=== PATIENT | male | born 1970 | race African-American/Black ===

== ENCOUNTER → 2017-01-25 | Outpatient (CLI) | payer OTHER ==
[2016-01-29 01:08] VITALS: BP 155/82
[~2017-01-25] MED LIST: DICY20TA30 PO; HYDR-971 PO; ONDA4TAB10 PO
--- NOTE | 2017-01-25 15:24 | RAD ---
Indication nasal congestion. Drainage. Stuffy nose. Noncontrast images through the maxillofacial structures were obtained and reformatted in the coronal and sagittal planes. No similar imaging is available. The visualized brain appears unremarkable. Visualized bony structures appear normal. Right mastoid air cells are normally aerated. There is some minimal opacification (fluid) seen in left mastoid air cells. The frontal, ethmoid and maxillary sinuses appear normal. The sphenoid sinus is also normal. No significant soft tissue finding is seen. IMPRESSION: Normal paranasal sinuses. Small amount of fluid in left mastoid air cells. PQRS Compliance Statement: One or more of the following individualized dose reduction techniques were utilized for this examination: 1. Automated exposure control 2. Adjustment of the mA and/or kV according to patient size 3. Use of iterative reconstruction technique
== END | disposition home or self-care (01) ==
LOC: CT 10:12
PROVIDERS: ATTEND Otolaryngology
DX: J32.9 Chronic sinusitis, unspecified (principal); R09.81 Nasal congestion
CPT/HCPCS: 70486

== ENCOUNTER 2019-06-11 04:13 | Inpatient (IN) | payer OTHER ==
[~2019-06-11] VITALS: Ht 175.3 cm; Wt 102.5 kg
[~2019-06-11 04:13] MED LIST changes: +HYDR-3164 PO; -HYDR-971 PO
[2019-06-11] MEDS ORDERED: ONDANSETRON PF 4 MG/2 ML VIAL. IV ONE (04:30)
[2019-06-11] MEDS ORDERED: IV NORMAL SALINE 1000ML BAG 1,000 ML IV SCH (04:30)
[2019-06-11] MEDS: MORPHINE SULFATE 4 MG/ML VIAL. IV/SQ PRN ×2 (04:34→04:58)
--- NOTE | 2019-06-11 04:34 | PHYS DOC ---
Past Medical History Past Medical History: GERD Past Surgical History: No Surgical History Smoking Status: Never Smoker Alcohol Use: Occasionally Drug Use: None Adult General Chief Complaint Chief Complaint: ABDOMINAL PAIN HPI HPI 49-year-old male with underlying history of reflux presents to the emergency Department complaints of severe epigastric abdominal pain that radiates to his back. Patient states he woke approximately 1 hour ago from sleep. He is unable to clarify the pain sharp versus dull he states is just intense, 10 out of 10 pain. Patient has no history of aneurysm or vascular disorders. His significant other states he ate [employer] last night with family personally check flaring as well as a second house. He does drink alcohol. Denies any past medical history aside from GERD, no surgical history according the patient's significant other at the bedside. She did have evidence of emesis appreciated. This did not improve his abdominal pain. Blood pressure currently 133/61, heart rate 94-96 after vomiting. Recommend pain medications anti-emetics and plan for CTA chest abd pelvis. She is thrashing around that with inability to get comfortable, morphine 4 mg, Zofran 4 mg provided. Review of Systems Review of Systems Constitutional: Denies fever or chills [] Respiratory: Denies cough or shortness of breath [] Cardiovascular: No additional information not addressed in HPI [] GI: severe abdominal pain, nausea, vomiting, no diarrhea [] : Denies dysuria or hematuria [] Musculoskeletal: pain radiates from the abdomen to the back Integument: Denies rash or skin lesions [] Neurologic: Denies headache, focal weakness or sensory changes [] All other systems were reviewed and found to be within normal limits, except as documented in this note. Current Medications Current Medications Current Medications Medications (Trade) Dose Ordered Sig/Jesse Start Time Stop Time Status Last Admin Dose Admin Fentanyl Citrate (Fentanyl 2ml Vial) 50 mcg 1X ONCE 06/11/19 05:00 06/11/19 05:01 DC 06/11/19 04:45 50 MCG Info (CONTRAST GIVEN -- Rx MONITORING) 1 each PRN DAILY PRN 06/11/19 04:45 06/13/19 04:44 Iohexol (Omnipaque 350 Mg/ml) 100 ml 1X ONCE 06/11/19 04:45 06/11/19 04:46 DC 06/11/19 05:01 100 ML Morphine Sulfate (Morphine Sulfate) 4 mg PRN Q15MIN PRN 06/11/19 04:30 06/11/19 16:47 DC 06/11/19 04:58 4 MG Ondansetron HCl (Zofran) 4 mg 1X ONCE 06/11/19 04:30 06/11/19 04:33 DC 06/11/19 04:33 4 MG Sodium Chloride 1,000 ml @ 1,000 mls/hr Q1H 06/11/19 04:30 06/11/19 05:29 DC 06/11/19 04:34 1,000 MLS/HR Allergies Allergies Allergies Coded Allergies Type Severity Reaction Last Updated Verified No Known Drug Allergies 01/28/16 No Physical Exam Physical Exam Constitutional: Well developed, well nourished, severe distress 2/2 abdominal pain radiating to back, diaphoretic/clammy HENT: Normocephalic, atraumatic, bilateral external ears normal, oropharynx moist, no oral exudates, nose normal. [] Eyes: PERRLA, EOMI, conjunctiva normal, no discharge. [] Cardiovascular:Heart rate regular rhythm, no murmur [] Lungs & Thorax: Bilateral breath sounds clear to auscultation [] Abdomen: Bowel sounds decreased, tender to palpation on exam - generalized, no pulsatile masses appreciated Skin: Warm, dry, no erythema, no rash. [] Back: No tenderness, no CVA tenderness. [] Extremities: No tenderness, no edema. [] Neurologic: Alert and oriented X 3, no focal deficits noted. [] Psychologic: Affect normal, judgement normal, mood normal. [] Current Patient Data Vital Signs Vital Signs Date Time Temp Pulse Resp B/P (MAP) Pulse Ox O2 Delivery O2 Flow Rate FiO2 06/11/19 05:00 82 179/99 (125) 98 Room Air 06/11/19 04:58 28 06/11/19 04:20 97.5 97.5 Lab Values Laboratory Tests Test 06/11/19 05:05 White Blood Count 18.6 x10^3/uL (4.0-11.0) H Red Blood Count 4.71 x10^6/uL (4.30-5.70) Hemoglobin 13.5 g/dL (13.0-17.5) Hematocrit 41.0 % (39.0-53.0) Mean Corpuscular Volume 87 fL (79-100) Mean Corpuscular Hemoglobin 29 pg (25-35) Mean Corpuscular Hemoglobin Concent 33 g/dL (31-37) Red Cell Distribution Width 13.6 % (11.5-14.5) Platelet Count 188 x10^3/uL (140-400) Neutrophils (%) (Auto) 77 % (31-73) H Lymphocytes (%) (Auto) 16 % (24-48) L Monocytes (%) (Auto) 6 % (0-9) Eosinophils (%) (Auto) 0 % (0-3) Basophils (%) (Auto) 0 % (0-3) Neutrophils # (Auto) 14.3 x10^3/uL (1.8-7.7) H Lymphocytes # (Auto) 3.0 x10^3/uL (1.0-4.8) Monocytes # (Auto) 1.2 x10^3/uL (0.0-1.1) H Eosinophils # (Auto) 0.0 x10^3/uL (0.0-0.7) Basophils # (Auto) 0.0 x10^3/uL (0.0-0.2) Sodium Level 143 mmol/L (136-145) Potassium Level 3.1 mmol/L (3.5-5.1) L Chloride Level 105 mmol/L (98-107) Carbon Dioxide Level 26 mmol/L (21-32) Anion Gap 12 (6-14) Blood Urea Nitrogen 20 mg/dL (8-26) Creatinine 1.3 mg/dL (0.7-1.3) Estimated GFR (Cockcroft-Gault) 71.0 BUN/Creatinine Ratio 15 (6-20) Glucose Level 198 mg/dL (70-99) H Lactic Acid Level 3.5 mmol/L (0.4-2.0) H Calcium Level 8.4 mg/dL (8.5-10.1) L Total Bilirubin 1.5 mg/dL (0.2-1.0) H Aspartate Amino Transferase (AST) 192 U/L (15-37) H Alanine Aminotransferase (ALT) 166 U/L (16-63) H Alkaline Phosphatase 75 U/L (46-116) Lactate Dehydrogenase 279 U/L (85-227) H Troponin I Quantitative < 0.017 ng/mL (0.000-0.055) Total Protein 6.1 g/dL (6.4-8.2) L Albumin 3.4 g/dL (3.4-5.0) Albumin/Globulin Ratio 1.3 (1.0-1.7) Lipase 82248 U/L (73-393) H Laboratory Tests 06/11/19 05:05 Laboratory Tests 06/11/19 05:05 EKG EKG [] Radiology/Procedures Radiology/Procedures [facility] [address] [place] [address] IMAGING REPORT Signed PATIENT: CHRISTOPHER NEWSOME ACCOUNT: [id number] : 1970 LOCATION: ER AGE: 49 SEX: M EXAM STATUS: REG ER ORD. PHYSICIAN: TIFFANIE CHARLTON MD REASON: epigastric/abdominal pain uncontrolled, clammy/diaphoretic PROCEDURE: CT ANGIO CHEST ABD PELVIS CT ANGIO CHEST ABD PELVIS dated 06/11/2019 4:47 AM Indication: Epigastric pain diaphoresis.. Comparison: 01/28/2016 Technique: Contiguous axial imaging the chest abdomen pelvis performed following the intravenous administration of 1 cc Omnipaque 350. One or more of the following individualized dose reduction techniques were utilized for this examination: 1. Automated exposure control 2. Adjustment of the mA and/or kV according to patient size 3. Use of iterative reconstruction technique Findings: Contrast bolus is adequate. Study is somewhat limited due to motion artifact. Ascending aorta is normal in caliber. No intimal flap or periaortic fluid collection. The descending thoracic aorta and abdominal aorta are normal in caliber. No periaortic fluid collection. Heart size is upper limits of normal. No pericardial effusion. No mediastinal, hilar or axillary lymphadenopathy. There is a low-density nodule in the right lobe thyroid gland measures 9 mm, nonspecific. Central airways are patent. There is some mild dependent groundglass opacity in the lower lobes, likely atelectasis. No consolidation or pleural effusion. No pneumothorax. The pancreas is enlarged and there is inflammatory stranding and fluid surrounding the gland. No circumscribed fluid collection to suggest pseudocyst or abscess. The peripancreatic vasculature is grossly patent. There hypodense foci in the gallbladder consistent with stones. No wall thickening. Biliary tree is normal in caliber. Small hypodense focus within the right lobe liver on image 71 measures 4 mm, nonspecific. Spleen is normal in size. Adrenal glands and kidneys are unremarkable. No hydronephrosis. Unopacified GI tract normal in caliber and contour. No focal bowel wall thickening. No inflammatory stranding in the mesentery. Appendix normal in caliber. No ascites or lymphadenopathy. Images of pelvis a nondistended urinary bladder. Prostate gland upper limits of normal in size. No free fluid or lymphadenopathy. Bone windows show no acute findings. Multilevel spondylosis. IMPRESSION: 1. Findings consistent with acute pancreatitis. No apparent acute complication. 2. Small amount of fluid along the pancreas and retroperitoneal reflection. No apparent pseudocyst. 3. Cholelithiasis. 4. Normal caliber aorta with no evidence of dissection. 5. Minimal dependent atelectasis. Otherwise clear lungs. Electronically signed by: Tab Razo MD (06/11/2019 5:15 AM) [id number] DICTATED and SIGNED BY: TAB RAZO MD DATE: 06/11/19 0515 [] Course & Med Decision Making Course & Med Decision Making Pertinent Labs and Imaging studies reviewed. (See chart for details) []49-year-old male with underlying history of reflux presents to the emergency Department complaints of severe epigastric abdominal pain that radiates to his back. Patient states he woke approximately 1 hour ago from sleep. He is unable to clarify the pain sharp versus dull he states is just intense, 10 out of 10 pain. Patient has no history of aneurysm or vascular disorders. His significant other states he ate [employer] last night with family personally check flaring as well as a second house. He does drink alcohol. Denies any past medical history aside from GERD, no surgical history according the patient's significant other at the bedside. He did have evidence of emesis appreciated. This did not improve his abdominal pain. Blood pressure currently 133/61, heart rate 94-96 after vomiting. Recommend pain medications anti-emetics and plan for CTA chest abd pelvis to rule out disssection. He is thrashing around that with inability to get comfortable, morphine 4 mg, Zofran 4 mg provided. [place] criteria 1 based on WBC, 0-2% mortality Lipase 82K Labs reviewed IVF provided for resuscitation CT reviewed - evidence of acute pancreatitis, no necrosis Dragon Disclaimer Dragon Disclaimer This electronic medical record was generated, in whole or in part, using a voice recognition dictation system. Departure Departure Impression: Primary Impression: Acute pancreatitis Additional Impression: Nausea & vomiting Disposition: 09 ADMITTED INPATIENT Admitting Physician: PATRICIA Condition: IMPROVED Referrals: ERON BLACKBURN (PCP) Critical Care Time Critical care time was 35 minutes exclusive of procedures. Problem Qualifiers Primary Impression: Acute pancreatitis Pancreatitis type: unspecified pancreatitis type Acute pancreatitis complication: unspecified Qualified Codes: K85.90 - Acute pancreatitis without necrosis or infection, unspecified Additional Impression: Nausea & vomiting Vomiting type: bilious vomiting Qualified Codes: R11.14 - Bilious vomiting TIFFANIE CHARLTON MD Jun 11, 2019 04:34
[2019-06-11] MEDS ORDERED: fentaNYL PF VIAL 100 MCG/2 ML VIAL ONE (04:42)
[2019-06-11] MEDS ORDERED: CONTRAST GIVEN. MC PRN (04:45)
[2019-06-11] MEDS ORDERED: IOHEXOL 350 MG/ML 100 ML VIAL. IV ONE (04:45)
[2019-06-11] MEDS ORDERED: fentaNYL PF VIAL 100 MCG/2 ML VIAL IVP ONE (05:00)
--- NOTE | 2019-06-11 05:18 | RAD ---
CT ANGIO CHEST ABD PELVIS dated 06/11/2019 4:47 AM Indication: Epigastric pain diaphoresis.. Comparison: 01/28/2016 Technique: Contiguous axial imaging the chest abdomen pelvis performed following the intravenous administration of 1 cc Omnipaque 350. One or more of the following individualized dose reduction techniques were utilized for this examination: 1. Automated exposure control 2. Adjustment of the mA and/or kV according to patient size 3. Use of iterative reconstruction technique Findings: Contrast bolus is adequate. Study is somewhat limited due to motion artifact. Ascending aorta is normal in caliber. No intimal flap or periaortic fluid collection. The descending thoracic aorta and abdominal aorta are normal in caliber. No periaortic fluid collection. Heart size is upper limits of normal. No pericardial effusion. No mediastinal, hilar or axillary lymphadenopathy. There is a low-density nodule in the right lobe thyroid gland measures 9 mm, nonspecific. Central airways are patent. There is some mild dependent groundglass opacity in the lower lobes, likely atelectasis. No consolidation or pleural effusion. No pneumothorax. The pancreas is enlarged and there is inflammatory stranding and fluid surrounding the gland. No circumscribed fluid collection to suggest pseudocyst or abscess. The peripancreatic vasculature is grossly patent. There hypodense foci in the gallbladder consistent with stones. No wall thickening. Biliary tree is normal in caliber. Small hypodense focus within the right lobe liver on image 71 measures 4 mm, nonspecific. Spleen is normal in size. Adrenal glands and kidneys are unremarkable. No hydronephrosis. Unopacified GI tract normal in caliber and contour. No focal bowel wall thickening. No inflammatory stranding in the mesentery. Appendix normal in caliber. No ascites or lymphadenopathy. Images of pelvis a nondistended urinary bladder. Prostate gland upper limits of normal in size. No free fluid or lymphadenopathy. Bone windows show no acute findings. Multilevel spondylosis. IMPRESSION: 1. Findings consistent with acute pancreatitis. No apparent acute complication. 2. Small amount of fluid along the pancreas and retroperitoneal reflection. No apparent pseudocyst. 3. Cholelithiasis. 4. Normal caliber aorta with no evidence of dissection. 5. Minimal dependent atelectasis. Otherwise clear lungs. Electronically signed by: Tab Razo MD (06/11/2019 5:15 AM) [id number]
[2019-06-11 05:26] LABS: BASO % 0 % (0-3); EOS % 0 % (0-3); HEMOGLOBIN 13.5 g/dL (13.0-17.5); LYMPH % 16 % (24-48); MEAN CORPUSCULAR HEMOGLOBIN 29 pg (25-35); MEAN CORPUSCULAR HGB CONC 33 g/dL (31-37); MEAN CORPUSCULAR VOLUME 87 fL (79-100); MONO # 1.2 x10^3/uL (0.0-1.1); MONO % 6 % (0-9); NEUT # 14.3 x10^3/uL (1.8-7.7); NEUT % 77 % (31-73); PLATELET COUNT 188 x10^3/uL (140-400); RED BLOOD COUNT 4.71 x10^6/uL (4.30-5.70); RED CELL DISTRIBUTION WIDTH 13.6 % (11.5-14.5); WHITE BLOOD COUNT 18.6 x10^3/uL (4.0-11.0)
[2019-06-11 05:36] LABS: CALCIUM 8.4 mg/dL (8.5-10.1); CREATININE 1.3 mg/dL (0.7-1.3); POTASSIUM 3.1 mmol/L (3.5-5.1)
[2019-06-11] MEDS ORDERED: MORPHINE SULFATE 4 MG/ML VIAL. IV PRN (05:45)
[2019-06-11] MEDS: HYDROmorphone 2 MG/ML VIAL IV PRN ×6 (05:45→21:25)
[2019-06-11 05:48] LABS: ALBUMIN 3.4 g/dL (3.4-5.0); ALBUMIN/GLOBULIN RATIO 1.3 (1.0-1.7); TOTAL BILIRUBIN 1.5 mg/dL (0.2-1.0); TOTAL PROTEIN 6.1 g/dL (6.4-8.2)
[2019-06-11 07:00] VITALS: BP 171/101
[2019-06-11] MEDS: ONDANSETRON PF 4 MG/2 ML VIAL. IV PRN ×2 (07:37→14:45)
[2019-06-11] MEDS: POTASSIUM CHLORIDE 10MEQ 100 ML IV SCH ×2 (07:43→08:41)
[2019-06-11 08:36] LABS: BILIRUBIN,URINE NEGATIVE (NEG); CLARITY,URINE CLEAR; COLOR,URINE YELLOW; NITRITE,URINE NEGATIVE (NEG); PH,URINE 5.5; PROTEIN,URINE NEGATIVE (NEG-TRACE)
[2019-06-11 08:44] LABS: BACTERIA,URINE 0 /HPF (0-FEW); RBC,URINE 0 /HPF (0-2); WBC,URINE 0 /HPF (0-4)
[2019-06-11] MEDS ORDERED: HYDROmorphone 2 MG/ML VIAL IV PRN (09:15)
[2019-06-11] MEDS: IV NORMAL SALINE 1000ML BAG 1,000 ML IV SCH ×3 (09:30→21:49)
[2019-06-11 11:00] VITALS: BP 148/110
[2019-06-11] MEDS: PROCHLORPERAZINE 10 MG/2 ML VIAL. IV PRN ×2 (12:00→21:25)
--- NOTE | 2019-06-11 12:42 | NUR ---
SW following. Discussed with RN, pt is from home. RN advised no SW needs at this time. SW will continue to follow, should any discharge planning needs arise.
--- NOTE | 2019-06-11 13:14 | PDOC2 ---
CONSULT Date of Consult Date of Consult DATE: 06/11/19 TIME: 13:10 Reason for Consult Reason for Consult: severe pancreatitis Referring Physician Referring Physician: Dr. Mckenna Identification/Chief Complaint Chief Complaint Epigastric abd pain Source Source: Chart review, Patient History of Present Illness Reason for Visit: 49 yo M presents with severe epigastric pain, beginning early this AM. No previous episodes. Associated N/V. Some improvement since admission. Somewhat sleepy with medication, but still with pain. Accompanied by supportive family. 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 Past Medical History GI: GERD Past Surgical History Past Surgical History: No pertinent history Family History Family History: No Significant Social History No ALCOHOL: social Current Problem List Problem List Problems Medical Problems: (1) Acute pancreatitis Status: Acute (2) Nausea & vomiting Status: Acute Current Medications Current Medications Current Medications Morphine Sulfate (Morphine Sulfate) 4 mg PRN Q15MIN PRN IV/SQ PAIN GREATER THAN 3/10 Last administered on 06/11/19at 04:58; Start 06/11/19 at 04:30; Stop 06/12/19 at 04:29 Sodium Chloride 1,000 ml @ 1,000 mls/hr Q1H IV Last administered on 06/11/19at 04:34; Start 06/11/19 at 04:30; Stop 06/11/19 at 05:29; Status DC Ondansetron HCl (Zofran) 4 mg 1X ONCE IV Last administered on 06/11/19at 04:33; Start 06/11/19 at 04:30; Stop 06/11/19 at 04:33; Status DC Iohexol (Omnipaque 350 Mg/ml) 100 ml 1X ONCE IV Last administered on 06/11/19at 05:01; Start 06/11/19 at 04:45; Stop 06/11/19 at 04:46; Status DC Info (CONTRAST GIVEN -- Rx MONITORING) 1 each PRN DAILY PRN MC SEE COMMENTS; Start 06/11/19 at 04:45; Stop 06/13/19 at 04:44 Fentanyl Citrate (Fentanyl 2ml Vial) 100 mcg STK-MED ONCE .ROUTE ; Start 06/11/19 at 04:42; Stop 06/11/19 at 04:42; Status DC Fentanyl Citrate (Fentanyl 2ml Vial) 50 mcg 1X ONCE IVP Last administered on 06/11/19at 04:45; Start 06/11/19 at 05:00; Stop 06/11/19 at 05:01; Status DC Ondansetron HCl (Zofran) 4 mg PRN Q8HRS PRN IV NAUSEA/VOMITING Last administered on 06/11/19at 07:37; Start 06/11/19 at 05:45; Stop 06/12/19 at 05:44 Morphine Sulfate (Morphine Sulfate) 4 mg PRN Q2HR PRN IV PAIN Last administered on 06/11/19at 07:37; Start 06/11/19 at 05:45; Stop 06/11/19 at 11:54; Status DC Sodium Chloride 1,000 ml @ 150 mls/hr Q6H40M IV Last administered on 06/11/19at 09:30; Start 06/11/19 at 05:45 Hydromorphone HCl (Dilaudid) 0.5 mg PRN Q3HRS PRN IV PAIN Last administered on 06/11/19at 08:38; Start 06/11/19 at 05:45; Stop 06/11/19 at 09:12; Status DC Potassium Chloride/Water 100 ml @ 100 mls/hr Q1H IV Last administered on 06/11at 08:41; Start 06/11/19 at 06:00; Stop 06/11/19 at 07:59; Status DC Hydromorphone HCl (Dilaudid) 1 mg PRN Q3HRS PRN IV PAIN Last administered on 06/11/19at 09:29; Start 06/11/19 at 09:15; Stop 06/11/19 at 11:54; Status DC Prochlorperazine Edisylate (Compazine) 10 mg PRN Q8HRS PRN IV NAUSEA/VOMITING Last administered on 06/11/19at 12:00; Start 06/11/19 at 12:00 Hydromorphone HCl (Dilaudid) 1 mg PRN Q2HRS PRN IV PAIN Last administered on 06/11/19at 12:01; Start 06/11/19 at 12:00 Active Scripts Active Allergies Allergies: Coded Allergies: No Known Drug Allergies (Unverified , 01/28/16) ROS Gastrointestinal: Yes Nausea, Yes Vomiting, Yes Abdominal Pain Physical Exam General: Alert, Oriented X3, Cooperative, moderate distress HEENT: Atraumatic, EOMI Lungs: Normal air movement Abdomen: Soft, Other (TTP epigastric) Extremities: No clubbing, No cyanosis Skin: No rashes, No breakdown Neuro: Normal speech, Sensation intact Psych/Mental Status: Mental status NL, Mood NL Vitals VITALS Vital Signs Date Time Temp Pulse Resp B/P (MAP) Pulse Ox O2 Delivery O2 Flow Rate FiO2 06/11/19 12:01 Room Air 06/11/19 11:00 97.3 110 18 148/110 (123) 92 97.3 Labs Labs Laboratory Tests Test 06/11/19 05:05 06/11/19 07:50 06/11/19 08:55 White Blood Count 18.6 x10^3/uL (4.0-11.0) Red Blood Count 4.71 x10^6/uL (4.30-5.70) Hemoglobin 13.5 g/dL (13.0-17.5) Hematocrit 41.0 % (39.0-53.0) Mean Corpuscular Volume 87 fL (79-100) Mean Corpuscular Hemoglobin 29 pg (25-35) Mean Corpuscular Hemoglobin Concent 33 g/dL (31-37) Red Cell Distribution Width 13.6 % (11.5-14.5) Platelet Count 188 x10^3/uL (140-400) Neutrophils (%) (Auto) 77 % (31-73) Lymphocytes (%) (Auto) 16 % (24-48) Monocytes (%) (Auto) 6 % (0-9) Eosinophils (%) (Auto) 0 % (0-3) Basophils (%) (Auto) 0 % (0-3) Neutrophils # (Auto) 14.3 x10^3/uL (1.8-7.7) Lymphocytes # (Auto) 3.0 x10^3/uL (1.0-4.8) Monocytes # (Auto) 1.2 x10^3/uL (0.0-1.1) Eosinophils # (Auto) 0.0 x10^3/uL (0.0-0.7) Basophils # (Auto) 0.0 x10^3/uL (0.0-0.2) Sodium Level 143 mmol/L (136-145) Potassium Level 3.1 mmol/L (3.5-5.1) Chloride Level 105 mmol/L (98-107) Carbon Dioxide Level 26 mmol/L (21-32) Anion Gap 12 (6-14) Blood Urea Nitrogen 20 mg/dL (8-26) Creatinine 1.3 mg/dL (0.7-1.3) Estimated GFR (Cockcroft-Gault) 71.0 BUN/Creatinine Ratio 15 (6-20) Glucose Level 198 mg/dL (70-99) Lactic Acid Level 3.5 mmol/L (0.4-2.0) 2.8 mmol/L (0.4-2.0) Calcium Level 8.4 mg/dL (8.5-10.1) Total Bilirubin 1.5 mg/dL (0.2-1.0) Aspartate Amino Transf (AST/SGOT) 192 U/L (15-37) Alanine Aminotransferase (ALT/SGPT) 166 U/L (16-63) Alkaline Phosphatase 75 U/L (46-116) Lactate Dehydrogenase 279 U/L (85-227) Troponin I Quantitative < 0.017 ng/mL (0.000-0.055) Total Protein 6.1 g/dL (6.4-8.2) Albumin 3.4 g/dL (3.4-5.0) Albumin/Globulin Ratio 1.3 (1.0-1.7) Lipase 76297 U/L (73-393) Urine Collection Type Unknown Urine Color Yellow Urine Clarity Clear Urine pH 5.5 Urine Specific [place] >=1.030 Urine Protein Negative mg/dL (NEG-TRACE) Urine Glucose (UA) 250 mg/dL (NEG) Urine Ketones (Stick) Negative mg/dL (NEG) Urine Blood Negative (NEG) Urine Nitrite Negative (NEG) Urine Bilirubin Negative (NEG) Urine Urobilinogen Dipstick 1.0 mg/dL (0.2 mg/dL) Urine Leukocyte Esterase Negative (NEG) Urine RBC 0 /HPF (0-2) Urine WBC 0 /HPF (0-4) Urine Bacteria 0 /HPF (0-FEW) Laboratory Tests Test 06/11/19 05:05 06/11/19 07:50 06/11/19 08:55 White Blood Count 18.6 x10^3/uL (4.0-11.0) Red Blood Count 4.71 x10^6/uL (4.30-5.70) Hemoglobin 13.5 g/dL (13.0-17.5) Hematocrit 41.0 % (39.0-53.0) Mean Corpuscular Volume 87 fL (79-100) Mean Corpuscular Hemoglobin 29 pg (25-35) Mean Corpuscular Hemoglobin Concent 33 g/dL (31-37) Red Cell Distribution Width 13.6 % (11.5-14.5) Platelet Count 188 x10^3/uL (140-400) Neutrophils (%) (Auto) 77 % (31-73) Lymphocytes (%) (Auto) 16 % (24-48) Monocytes (%) (Auto) 6 % (0-9) Eosinophils (%) (Auto) 0 % (0-3) Basophils (%) (Auto) 0 % (0-3) Neutrophils # (Auto) 14.3 x10^3/uL (1.8-7.7) Lymphocytes # (Auto) 3.0 x10^3/uL (1.0-4.8) Monocytes # (Auto) 1.2 x10^3/uL (0.0-1.1) Eosinophils # (Auto) 0.0 x10^3/uL (0.0-0.7) Basophils # (Auto) 0.0 x10^3/uL (0.0-0.2) Sodium Level 143 mmol/L (136-145) Potassium Level 3.1 mmol/L (3.5-5.1) Chloride Level 105 mmol/L (98-107) Carbon Dioxide Level 26 mmol/L (21-32) Anion Gap 12 (6-14) Blood Urea Nitrogen 20 mg/dL (8-26) Creatinine 1.3 mg/dL (0.7-1.3) Estimated GFR (Cockcroft-Gault) 71.0 BUN/Creatinine Ratio 15 (6-20) Glucose Level 198 mg/dL (70-99) Lactic Acid Level 3.5 mmol/L (0.4-2.0) 2.8 mmol/L (0.4-2.0) Calcium Level 8.4 mg/dL (8.5-10.1) Total Bilirubin 1.5 mg/dL (0.2-1.0) Aspartate Amino Transf (AST/SGOT) 192 U/L (15-37) Alanine Aminotransferase (ALT/SGPT) 166 U/L (16-63) Alkaline Phosphatase 75 U/L (46-116) Lactate Dehydrogenase 279 U/L (85-227) Troponin I Quantitative < 0.017 ng/mL (0.000-0.055) Total Protein 6.1 g/dL (6.4-8.2) Albumin 3.4 g/dL (3.4-5.0) Albumin/Globulin Ratio 1.3 (1.0-1.7) Lipase 86171 U/L (73-393) Urine Collection Type Unknown Urine Color Yellow Urine Clarity Clear Urine pH 5.5 Urine Specific [place] >=1.030 Urine Protein Negative mg/dL (NEG-TRACE) Urine Glucose (UA) 250 mg/dL (NEG) Urine Ketones (Stick) Negative mg/dL (NEG) Urine Blood Negative (NEG) Urine Nitrite Negative (NEG) Urine Bilirubin Negative (NEG) Urine Urobilinogen Dipstick 1.0 mg/dL (0.2 mg/dL) Urine Leukocyte Esterase Negative (NEG) Urine RBC 0 /HPF (0-2) Urine WBC 0 /HPF (0-4) Urine Bacteria 0 /HPF (0-FEW) Images Images CT with severe pancreatitis, no necrosis, gallstones Assessment/Plan Assessment/Plan gallstone pancreatitis agree with pain control and hydration encouraged etoh moderation plan cholecystectomy prior to d/c Thanks for consult! KARLA CALL MD Jun 11, 2019 13:14
--- NOTE | 2019-06-11 14:26 | HP ---
ADMIT DATE: 06/11/2019 CHIEF COMPLAINT: Abdominal pain. HISTORY OF PRESENT ILLNESS: The patient is a pleasant 49-year-old male who presented to the ER with abdominal pains in the epigastric region, rated 7/10. He has associated nausea. He took some home meds, but that did not seem to help. While in the ER, he was noted to have pancreatitis. We are going to admit the patient and consult GI. PAST MEDICAL HISTORY: GERD. ALLERGIES: None. FAMILY HISTORY: Diabetes. SOCIAL HISTORY: Does not drink, smoke or take drugs. MEDICATIONS: Reviewed, please refer to the MRAD. REVIEW OF SYSTEMS: GENERAL: No history of weight change, weakness or fevers. SKIN: No bruising, hair changes or rashes. EYES: No blurred, double or loss of vision. NOSE AND THROAT: No history of nosebleeds, hoarseness or sore throat. HEART: No history of palpitations, chest pain or shortness of breath on exertion. LUNGS: Denies cough, hemoptysis, wheezing or shortness of breath. GASTROINTESTINAL: He complains of abdominal pain. GENITOURINARY: No history of frequency, urgency, hesitancy or nocturia. NEUROLOGIC: Denies history of numbness, tingling, tremor or weakness. PSYCHIATRIC: No history of panic, anxiety or depression. ENDOCRINE: No history of heat or cold intolerance, polyuria or polydipsia. EXTREMITIES: Denies muscle weakness, joint pain, pain on walking or stiffness. PHYSICAL EXAMINATION: VITALS: Within normal limits and are stable. GENERAL: No apparent distress. Alert and oriented. HEENT: Normal cephalic atraumatic, external auditory canals are patent. EYES: Extraocular muscles are intact, pupils are equally round and reactive to light and accommodation. MUSCULOSKELETAL: Well developed, well nourished, good range of motion. ENDOCRINE: No thyromegaly was palpated. LYMPHATICS: No cervical chain or axillary nodes were noted. HEMATOPOIETIC: No bruising. NECK: Supple, no JVD, no thyromegaly was noted. LUNGS: Clear to auscultation in all lung ventura without rhonchi or wheezing. HEART: RRR, S1, S2 present. Peripheral pulses intact, no obvious murmurs were noted. ABDOMEN: He has severe abdominal pain. EXTREMITIES: Without any cyanosis, clubbing, or edema. Pedal pulses intact, Homans sign is negative. NEUROLOGIC: Normal speech, normal tone. A & O x3, moves all extremities, no obvious focal deficits. PSYCHIATRIC: Normal affect, normal mood. Stable. SKIN: No ulcerations or rashes, good skin turgor, no jaundice. VASCULAR: Good capillary refill, neurovascular bundle appears to be intact. HEENT: Noted. ASSESSMENT AND PLAN: Severe pancreatitis. The patient has been admitted for consulting Gastrointestinal, IV fluids, p.r.n. antiemetics, home medications, deep venous thrombosis prophylaxis. Full code. PROGNOSIS: Guarded. EMILYL Karl WORKMAN DO DR: MOHAN/justyn JOB#: [id number] / [id number]
[2019-06-11 15:00] VITALS: BP 167/113
[2019-06-11] MEDS: PANTOPRAZOLE IV PUSH 40 MG VIAL. IVP SCH (15:02)
[2019-06-11] MEDS: hydrALAZINE 20 MG/ML VIAL. IVP PRN (18:22)
[2019-06-11 19:00] VITALS: BP 138/98
[2019-06-11 23:00] VITALS: BP 131/87
[2019-06-11] MEDS ORDERED: NYSTATIN TOPICAL POWDER 15GM BOTTLE. TP PRN (23:15)
[2019-06-12] VITALS (25 sets, daily range): BP systolic 101–163; BP diastolic 9–100
[2019-06-12 02:55] LABS: BASE EXCESS ABG -10 mmol/L (-3-3); FIO2 ABG 21; HCO3 ABG 15 mmol/L (21-28); PCO2 ABG 31 mmHg (35-46); PO2 ABG 75 mmHg (75-108); SAT O2 ABG 94 % (92-99)
[2019-06-12] MEDS: IV NORMAL SALINE 1000ML BAG 1,000 ML IV SCH (03:28)
[2019-06-12] MEDS: ONDANSETRON PF 4 MG/2 ML VIAL. IV PRN (03:29)
[2019-06-12] MEDS: HYDROmorphone 2 MG/ML VIAL IV PRN ×8 (03:32→23:14)
--- NOTE | 2019-06-12 03:35 | NUR ---
Transfer patient to ICU room 111 for closer medical med tele monitoring, per doctors orders due to abnormal labs and Patient lethargy
[2019-06-12 03:39] LABS: HEMATOCRIT 51.4 % (39.0-53.0); HEMOGLOBIN 16.9 g/dL (13.0-17.5); RED BLOOD COUNT 5.8 x10^6/uL (4.30-5.70); WHITE BLOOD COUNT 14.4 x10^3/uL (4.0-11.0)
[2019-06-12 04:13] LABS: ALBUMIN 3.8 g/dL (3.4-5.0); ALBUMIN/GLOBULIN RATIO 1.3 (1.0-1.7); CALCIUM 6.8 mg/dL (8.5-10.1); CREATININE 3.5 mg/dL (0.7-1.3); GFR 22.6; TOTAL BILIRUBIN 3.9 mg/dL (0.2-1.0); TOTAL PROTEIN 6.8 g/dL (6.4-8.2)
[2019-06-12 04:19] LABS: POTASSIUM 6.1 mmol/L (3.5-5.1)
--- NOTE | 2019-06-12 04:30 | NUR ---
Called by Nursing [employer] Tracer Machine Operator to see patient for rapid respirations, abnormal labs, nausea, and rapid heart rate. Pt states nausea is a little better since Compazine was given. Dilaudid was give for pain and patient is arouseable but sleepy. ED RN was on floor to restart patients IV. I called Dr. Brar with abnormal labs and concerns voiced by Dr. Levine, ED physician. Patient is to be transferred to the ICU for monitoring and IV fluids. Dr. Brar called with critical K+ of 6.1. Consult for Dr. Mcbride received and his answering service was notified and now awaiting a call from Dr. Mcbride. Patients is at bedside.
[2019-06-12] MEDS ORDERED: IV NORMAL SALINE 1000ML BAG 1,000 ML IV ONE ×2 (05:00→06:00)
[2019-06-12] MEDS: PROCHLORPERAZINE 10 MG/2 ML VIAL. IV PRN ×2 (06:40→14:59)
[2019-06-12] MEDS ORDERED: IV NORMAL SALINE 1000ML BAG 1,000 ML IV SCH (07:00)
[2019-06-12] MEDS: PANTOPRAZOLE IV PUSH 40 MG VIAL. IVP SCH ×2 (08:29→19:01)
[2019-06-12 09:17] LABS: ALBUMIN 3.2 g/dL (3.4-5.0); CREATININE 3.3 mg/dL (0.7-1.3); GFR 24.2; TOTAL BILIRUBIN 3.4 mg/dL (0.2-1.0); TOTAL PROTEIN 6.4 g/dL (6.4-8.2)
[2019-06-12 09:22] LABS: POTASSIUM 6.6 mmol/L (3.5-5.1)
--- NOTE | 2019-06-12 09:38 | PDOC2 ---
GI CONSULT Reason For Consult: pancreatitis HPI: HPI: 49 y/o male w/ gallstone pancreatitis. Admitted yesterday, surgery saw w/ plans for cholecystectomy prior to DC, then transferred to ICU overnight w/ abnormal labs and worsening condition, nephrology now involved. Nephew and present. Upper abdominal pain began a couple days ago after eating. Associated w/ n/v and sweats. No similar symptoms in the past, but does have "stomachaches" from time to time. H/o heartburn, usually takes Pepcid QD w/ improvement. No dysphagia, chronic n/v, diarrhea, constipation, hematochezia, melena, or weight loss. No previous EGD or colonoscopy. No GB, liver, pancreas, or PUD history. No NSAID use. PMH: PMH: GERD FH: Family History: No pertinent hx (denies GI cancers) Social History: Smoke: No (occasional cigar) ALCOHOL: social (3-4 drinks weekly) Drugs: None ROS: GEN: +sweats HEENT: Denies blurred vision, sore throat CV: Denies chest pain RESP: Denies shortness of air, cough GI: Per HPI : Denies hematuria, dysuria ENDO: Denies weight changes NEURO: Denies confusion, dizziness MSK: Denies weakness, joint pain/swelling SKIN: Denies jaundice, pruritus Vitals: Vitals: Vital Signs Date Time Temp Pulse Resp B/P (MAP) Pulse Ox O2 Delivery O2 Flow Rate FiO2 06/12/19 07:00 128 18 101/82 (88) 94 Nasal Cannula 3.0 06/12/19 04:15 97.9 97.9 Labs: Labs: Laboratory Tests Test 06/12/19 02:54 06/12/19 03:32 06/12/19 08:20 O2 Saturation 94 % (92-99) Arterial Blood pH 7.30 (7.35-7.45) Arterial Blood pCO2 at Patient Temp 31 mmHg (35-46) Arterial Blood pO2 at Patient Temp 75 mmHg (75-108) Arterial Blood HCO3 15 mmol/L (21-28) Arterial Blood Base Excess -10 mmol/L (-3-3) FiO2 21 White Blood Count 14.4 x10^3/uL (4.0-11.0) Red Blood Count 5.80 x10^6/uL (4.30-5.70) Hemoglobin 16.9 g/dL (13.0-17.5) Hematocrit 51.4 % (39.0-53.0) Mean Corpuscular Volume 89 fL (79-100) Mean Corpuscular Hemoglobin 29 pg (25-35) Mean Corpuscular Hemoglobin Concent 33 g/dL (31-37) Red Cell Distribution Width 14.0 % (11.5-14.5) Platelet Count 193 x10^3/uL (140-400) Sodium Level 140 mmol/L (136-145) 141 mmol/L (136-145) Potassium Level 6.1 mmol/L (3.5-5.1) 6.6 mmol/L (3.5-5.1) Chloride Level 104 mmol/L (98-107) 107 mmol/L (98-107) Carbon Dioxide Level 18 mmol/L (21-32) 17 mmol/L (21-32) Anion Gap 18 (6-14) 17 (6-14) Blood Urea Nitrogen 38 mg/dL (8-26) 43 mg/dL (8-26) Creatinine 3.5 mg/dL (0.7-1.3) 3.3 mg/dL (0.7-1.3) Estimated GFR (Cockcroft-Gault) 22.6 24.2 BUN/Creatinine Ratio 11 (6-20) 13 (6-20) Glucose Level 297 mg/dL (70-99) 335 mg/dL (70-99) Calcium Level 6.8 mg/dL (8.5-10.1) 6.0 mg/dL (8.5-10.1) Total Bilirubin 3.9 mg/dL (0.2-1.0) 3.4 mg/dL (0.2-1.0) Aspartate Amino Transf (AST/SGOT) 185 U/L (15-37) 163 U/L (15-37) Alanine Aminotransferase (ALT/SGPT) 288 U/L (16-63) 213 U/L (16-63) Alkaline Phosphatase 99 U/L (46-116) 86 U/L (46-116) Total Protein 6.8 g/dL (6.4-8.2) 6.4 g/dL (6.4-8.2) Albumin 3.8 g/dL (3.4-5.0) 3.2 g/dL (3.4-5.0) Albumin/Globulin Ratio 1.3 (1.0-1.7) 1.0 (1.0-1.7) Lipase 8263 U/L (73-393) Allergies: Coded Allergies: No Known Drug Allergies (Unverified , 01/28/16) Medications: Current Medications Medications (Trade) Dose Ordered Sig/Jesse Route PRN Reason Start Time Stop Time Status Last Admin Dose Admin Prochlorperazine Edisylate (Compazine) 10 mg PRN Q8HRS PRN IV NAUSEA/VOMITING 06/11/19 12:00 06/12/19 06:40 Hydromorphone HCl (Dilaudid) 1 mg PRN Q2HRS PRN IV PAIN 06/11/19 12:00 06/12/19 06:35 Pantoprazole Sodium (PROTONIX VIAL for IV PUSH) 40 mg DAILYAC IVP 06/11/19 15:00 06/12/19 08:29 Hydralazine HCl (Apresoline Inj) 10 mg PRN Q6HRS PRN IVP ELEVATED BP, SEE COMMENTS 06/11/19 18:15 06/11/19 18:22 Nystatin (Nystop) 1 devorah PRN QID PRN TP FUNGAL RASH 06/11/19 23:15 06/11/19 23:19 Sodium Chloride 1,000 ml @ 1,000 mls/hr 1X ONCE IV 06/12/19 06:00 06/12/19 06:59 DC 06/12/19 05:27 Sodium Chloride 1,000 ml @ 1,000 mls/hr 1X ONCE IV 06/12/19 05:00 06/12/19 05:59 DC 06/12/19 05:25 Sodium Chloride 1,000 ml @ 200 mls/hr Q5H IV 06/12/19 07:00 06/12/19 06:36 Imaging: Imaging: C/A/P CTA 06/11/19 Findings: Contrast bolus is adequate. Study is somewhat limited due to motion artifact. Ascending aorta is normal in caliber. No intimal flap or periaortic fluid collection. The descending thoracic aorta and abdominal aorta are normal in caliber. No periaortic fluid collection. Heart size is upper limits of normal. No pericardial effusion. No mediastinal, hilar or axillary lymphadenopathy. There is a low-density nodule in the right lobe thyroid gland measures 9 mm, no nspecific. Central airways are patent. There is some mild dependent groundglass opacity in the lower lobes, likely atelectasis. No consolidation or pleural effusion. No pneumothorax. The pancreas is enlarged and there is inflammatory stranding and fluid surrounding the gland. No circumscribed fluid collection to suggest pseudocyst or abscess. The peripancreatic vasculature is grossly patent. There hypodense foci in the gallbladder consistent with stones. No wall thickening. Biliary tree is normal in caliber. Small hypodense focus within the right lobe liver on image 71 measures 4 mm, nonspecific. Spleen is normal in size. Adrenal glands and kidneys are unremarkable. No hydronephrosis. Unopacified GI tract normal in caliber and contour. No focal bowel wall th ickening. No inflammatory stranding in the mesentery. Appendix normal incaliber. No ascites or lymphadenopathy. Images of pelvis a nondistended urinary bladder. Prostate gland upper limits of normal in size. No free fluid or lymphadenopathy. Bone windows show no acute findings. Multilevel spondylosis. IMPRESSION: 1. Findings consistent with acute pancreatitis. No apparent acute complication. 2. Small amount of fluid along the pancreas and retroperitoneal reflection. No apparent pseudocyst. 3. Cholelithiasis. 4. Normal caliber aorta with no evidence of dissection. 5. Minimal dependent atelectasis. Otherwise clear lungs. PE: GEN: looks ill HEENT: Atraumatic, PERRL LUNGS: clear anteriorly, NC 3L HEART: tachycardic ABD: quiet, some distention, epigastric discomfort - less to RUQ and LUQ EXTREMITY: No edema SKIN: No rashes, no jaundice NEURO/PSYCH: A & O 3 A/P: A/P: Gallstone pancreatitis Lactic acidosis, leukocytoisis, FABIOLA, hyperkalemia, hypocalcemia, elevated LFTs GERD - on IV PPI CRC screen - none -- Worse today. Question about drinking - would keep to mouth swabs and the occasional ice chip for now - d/w pt, family, and nursing. Continue support, close monitoring in ICU. PAXTON ALEXANDER Jun 12, 2019 09:37
--- NOTE | 2019-06-12 09:58 | PDOC ---
PROGRESS NOTES History of Present Illness History of Present Illness ASSESSMENT AND PLAN: Severe pancreatitis. , GALLSTONE pancreatitis MORBID OBESITY ACUTE HYPOXIC RESP FAILURE HYPERKALEMIA TRANSAMINITIS LACTIC ACIDOSIS admitted consult GI, IV fluids, p.r.n. antiemetics, home medications, deep venous thrombosis prophylaxis. Full code. nephrology consult gen surgery consult GI CONSULT O2 SUPPORT lactic acid with reflex iv zosyn per pharmacy ID CONSULT BLOOD CULT BICARB DRIP BMP AT 1800 PROGNOSIS: Guarded. 37 MIN CC TIME Vitals Vitals Vital Signs Date Time Temp Pulse Resp B/P (MAP) Pulse Ox O2 Delivery O2 Flow Rate FiO2 06/12/19 07:00 128 18 101/82 (88) 94 Nasal Cannula 3.0 06/12/19 04:15 97.9 97.9 Physical Exam General: Alert, Oriented X3, Cooperative, moderate distress Heart: Regular rate, Normal S1 Lungs: Clear Abdomen: Soft, Other (TTP epigastric) Extremities: No clubbing, No cyanosis Skin: No rashes, No breakdown Labs LABS CT ANGIO CHEST ABD PELVIS dated 06/11/2019 4:47 AM Indication: Epigastric pain diaphoresis.. Comparison: 01/28/2016 Technique: Contiguous axial imaging the chest abdomen pelvis performed following the intravenous administration of 1 cc Omnipaque 350. One or more of the following individualized dose reduction techniques were utilized for this examination: 1. Automated exposure control 2. Adjustment of the mA and/or kV according to patient size 3. Use of iterative reconstruction technique Findings: Contrast bolus is adequate. Study is somewhat limited due to motion artifact. Ascending aorta is normal in caliber. No intimal flap or periaortic fluid collection. The descending thoracic aorta and abdominal aorta are normal in caliber. No periaortic fluid collection. Heart size is upper limits of normal. No pericardial effusion. No mediastinal, hilar or axillary lymphadenopathy. There is a low-density nodule in the right lobe thyroid gland measures 9 mm, nonspecific. Central airways are patent. There is some mild dependent groundglass opacity in the lower lobes, likely atelectasis. No consolidation or pleural effusion. No pneumothorax. The pancreas is enlarged and there is inflammatory stranding and fluid surrounding the gland. No circumscribed fluid collection to suggest pseudocyst or abscess. The peripancreatic vasculature is grossly patent. There hypodense foci in the gallbladder consistent with stones. No wall thickening. Biliary tree is normal in caliber. Small hypodense focus within the right lobe liver on image 71 measures 4 mm, nonspecific. Spleen is normal in size. Adrenal glands and kidneys are unremarkable. No hydronephrosis. Unopacified GI tract normal in caliber and contour. No focal bowel wall thickening. No inflammatory stranding in the mesentery. Appendix normal in caliber. No ascites or lymphadenopathy. Images of pelvis a nondistended urinary bladder. Prostate gland upper limits of normal in size. No free fluid or lymphadenopathy. Bone windows show no acute findings. Multilevel spondylosis. IMPRESSION: 1. Findings consistent with acute pancreatitis. No apparent acute complication. 2. Small amount of fluid along the pancreas and retroperitoneal reflection. No apparent pseudocyst. 3. Cholelithiasis. 4. Normal caliber aorta with no evidence of dissection. 5. Minimal dependent atelectasis. Otherwise clear lungs. Electronically signed by: Tab Razo MD (06/11/2019 5:15 AM) [id number] DICTATED and SIGNED BY: TAB RAZO MD DATE: 06/11/1915 Laboratory Tests Test 06/12/19 02:54 06/12/19 03:32 06/12/19 08:20 O2 Saturation 94 % (92-99) Arterial Blood pH 7.30 (7.35-7.45) Arterial Blood pCO2 at Patient Temp 31 mmHg (35-46) Arterial Blood pO2 at Patient Temp 75 mmHg (75-108) Arterial Blood HCO3 15 mmol/L (21-28) Arterial Blood Base Excess -10 mmol/L (-3-3) FiO2 21 White Blood Count 14.4 x10^3/uL (4.0-11.0) Red Blood Count 5.80 x10^6/uL (4.30-5.70) Hemoglobin 16.9 g/dL (13.0-17.5) Hematocrit 51.4 % (39.0-53.0) Mean Corpuscular Volume 89 fL (79-100) Mean Corpuscular Hemoglobin 29 pg (25-35) Mean Corpuscular Hemoglobin Concent 33 g/dL (31-37) Red Cell Distribution Width 14.0 % (11.5-14.5) Platelet Count 193 x10^3/uL (140-400) Sodium Level 140 mmol/L (136-145) 141 mmol/L (136-145) Potassium Level 6.1 mmol/L (3.5-5.1) 6.6 mmol/L (3.5-5.1) Chloride Level 104 mmol/L (98-107) 107 mmol/L (98-107) Carbon Dioxide Level 18 mmol/L (21-32) 17 mmol/L (21-32) Anion Gap 18 (6-14) 17 (6-14) Blood Urea Nitrogen 38 mg/dL (8-26) 43 mg/dL (8-26) Creatinine 3.5 mg/dL (0.7-1.3) 3.3 mg/dL (0.7-1.3) Estimated GFR (Cockcroft-Gault) 22.6 24.2 BUN/Creatinine Ratio 11 (6-20) 13 (6-20) Glucose Level 297 mg/dL (70-99) 335 mg/dL (70-99) Calcium Level 6.8 mg/dL (8.5-10.1) 6.0 mg/dL (8.5-10.1) Total Bilirubin 3.9 mg/dL (0.2-1.0) 3.4 mg/dL (0.2-1.0) Aspartate Amino Transf (AST/SGOT) 185 U/L (15-37) 163 U/L (15-37) Alanine Aminotransferase (ALT/SGPT) 288 U/L (16-63) 213 U/L (16-63) Alkaline Phosphatase 99 U/L (46-116) 86 U/L (46-116) Total Protein 6.8 g/dL (6.4-8.2) 6.4 g/dL (6.4-8.2) Albumin 3.8 g/dL (3.4-5.0) 3.2 g/dL (3.4-5.0) Albumin/Globulin Ratio 1.3 (1.0-1.7) 1.0 (1.0-1.7) Lipase 8263 U/L (73-393) Assessment and Plan Assessmemt and Plan Problems Medical Problems: (1) Acute pancreatitis Status: Acute (2) Nausea & vomiting Status: Acute Comment Review of Relevant I have reviewed the following items alexandra (where applicable) has been applied. Labs Laboratory Tests Test 06/11/19 05:05 06/11/19 07:50 06/11/19 08:55 06/12/19 02:54 White Blood Count 18.6 x10^3/uL (4.0-11.0) Red Blood Count 4.71 x10^6/uL (4.30-5.70) Hemoglobin 13.5 g/dL (13.0-17.5) Hematocrit 41.0 % (39.0-53.0) Mean Corpuscular Volume 87 fL (79-100) Mean Corpuscular Hemoglobin 29 pg (25-35) Mean Corpuscular Hemoglobin Concent 33 g/dL (31-37) Red Cell Distribution Width 13.6 % (11.5-14.5) Platelet Count 188 x10^3/uL (140-400) Neutrophils (%) (Auto) 77 % (31-73) Lymphocytes (%) (Auto) 16 % (24-48) Monocytes (%) (Auto) 6 % (0-9) Eosinophils (%) (Auto) 0 % (0-3) Basophils (%) (Auto) 0 % (0-3) Neutrophils # (Auto) 14.3 x10^3/uL (1.8-7.7) Lymphocytes # (Auto) 3.0 x10^3/uL (1.0-4.8) Monocytes # (Auto) 1.2 x10^3/uL (0.0-1.1) Eosinophils # (Auto) 0.0 x10^3/uL (0.0-0.7) Basophils # (Auto) 0.0 x10^3/uL (0.0-0.2) Sodium Level 143 mmol/L (136-145) Potassium Level 3.1 mmol/L (3.5-5.1) Chloride Level 105 mmol/L (98-107) Carbon Dioxide Level 26 mmol/L (21-32) Anion Gap 12 (6-14) Blood Urea Nitrogen 20 mg/dL (8-26) Creatinine 1.3 mg/dL (0.7-1.3) Estimated GFR (Cockcroft-Gault) 71.0 BUN/Creatinine Ratio 15 (6-20) Glucose Level 198 mg/dL (70-99) Lactic Acid Level 3.5 mmol/L (0.4-2.0) 2.8 mmol/L (0.4-2.0) Calcium Level 8.4 mg/dL (8.5-10.1) Total Bilirubin 1.5 mg/dL (0.2-1.0) Aspartate Amino Transf (AST/SGOT) 192 U/L (15-37) Alanine Aminotransferase (ALT/SGPT) 166 U/L (16-63) Alkaline Phosphatase 75 U/L (46-116) Lactate Dehydrogenase 279 U/L (85-227) Troponin I Quantitative < 0.017 ng/mL (0.000-0.055) Total Protein 6.1 g/dL (6.4-8.2) Albumin 3.4 g/dL (3.4-5.0) Albumin/Globulin Ratio 1.3 (1.0-1.7) Lipase 71205 U/L (73-393) Urine Collection Type Unknown Urine Color Yellow Urine Clarity Clear Urine pH 5.5 Urine Specific [place] >=1.030 Urine Protein Negative mg/dL (NEG-TRACE) Urine Glucose (UA) 250 mg/dL (NEG) Urine Ketones (Stick) Negative mg/dL (NEG) Urine Blood Negative (NEG) Urine Nitrite Negative (NEG) Urine Bilirubin Negative (NEG) Urine Urobilinogen Dipstick 1.0 mg/dL (0.2 mg/dL) Urine Leukocyte Esterase Negative (NEG) Urine RBC 0 /HPF (0-2) Urine WBC 0 /HPF (0-4) Urine Bacteria 0 /HPF (0-FEW) O2 Saturation 94 % (92-99) Arterial Blood pH 7.30 (7.35-7.45) Arterial Blood pCO2 at Patient Temp 31 mmHg (35-46) Arterial Blood pO2 at Patient Temp 75 mmHg (75-108) Arterial Blood HCO3 15 mmol/L (21-28) Arterial Blood Base Excess -10 mmol/L (-3-3) FiO2 21 Test 06/12/19 03:32 06/12/19 08:20 White Blood Count 14.4 x10^3/uL (4.0-11.0) Red Blood Count 5.80 x10^6/uL (4.30-5.70) Hemoglobin 16.9 g/dL (13.0-17.5) Hematocrit 51.4 % (39.0-53.0) Mean Corpuscular Volume 89 fL (79-100) Mean Corpuscular Hemoglobin 29 pg (25-35) Mean Corpuscular Hemoglobin Concent 33 g/dL (31-37) Red Cell Distribution Width 14.0 % (11.5-14.5) Platelet Count 193 x10^3/uL (140-400) Sodium Level 140 mmol/L (136-145) 141 mmol/L (136-145) Potassium Level 6.1 mmol/L (3.5-5.1) 6.6 mmol/L (3.5-5.1) Chloride Level 104 mmol/L (98-107) 107 mmol/L (98-107) Carbon Dioxide Level 18 mmol/L (21-32) 17 mmol/L (21-32) Anion Gap 18 (6-14) 17 (6-14) Blood Urea Nitrogen 38 mg/dL (8-26) 43 mg/dL (8-26) Creatinine 3.5 mg/dL (0.7-1.3) 3.3 mg/dL (0.7-1.3) Estimated GFR (Cockcroft-Gault) 22.6 24.2 BUN/Creatinine Ratio 11 (6-20) 13 (6-20) Glucose Level 297 mg/dL (70-99) 335 mg/dL (70-99) Calcium Level 6.8 mg/dL (8.5-10.1) 6.0 mg/dL (8.5-10.1) Total Bilirubin 3.9 mg/dL (0.2-1.0) 3.4 mg/dL (0.2-1.0) Aspartate Amino Transf (AST/SGOT) 185 U/L (15-37) 163 U/L (15-37) Alanine Aminotransferase (ALT/SGPT) 288 U/L (16-63) 213 U/L (16-63) Alkaline Phosphatase 99 U/L (46-116) 86 U/L (46-116) Total Protein 6.8 g/dL (6.4-8.2) 6.4 g/dL (6.4-8.2) Albumin 3.8 g/dL (3.4-5.0) 3.2 g/dL (3.4-5.0) Albumin/Globulin Ratio 1.3 (1.0-1.7) 1.0 (1.0-1.7) Lipase 8263 U/L (73-393) Laboratory Tests Test 06/12/19 02:54 06/12/19 03:32 06/12/19 08:20 O2 Saturation 94 % (92-99) Arterial Blood pH 7.30 (7.35-7.45) Arterial Blood pCO2 at Patient Temp 31 mmHg (35-46) Arterial Blood pO2 at Patient Temp 75 mmHg (75-108) Arterial Blood HCO3 15 mmol/L (21-28) Arterial Blood Base Excess -10 mmol/L (-3-3) FiO2 21 White Blood Count 14.4 x10^3/uL (4.0-11.0) Red Blood Count 5.80 x10^6/uL (4.30-5.70) Hemoglobin 16.9 g/dL (13.0-17.5) Hematocrit 51.4 % (39.0-53.0) Mean Corpuscular Volume 89 fL (79-100) Mean Corpuscular Hemoglobin 29 pg (25-35) Mean Corpuscular Hemoglobin Concent 33 g/dL (31-37) Red Cell Distribution Width 14.0 % (11.5-14.5) Platelet Count 193 x10^3/uL (140-400) Sodium Level 140 mmol/L (136-145) 141 mmol/L (136-145) Potassium Level 6.1 mmol/L (3.5-5.1) 6.6 mmol/L (3.5-5.1) Chloride Level 104 mmol/L (98-107) 107 mmol/L (98-107) Carbon Dioxide Level 18 mmol/L (21-32) 17 mmol/L (21-32) Anion Gap 18 (6-14) 17 (6-14) Blood Urea Nitrogen 38 mg/dL (8-26) 43 mg/dL (8-26) Creatinine 3.5 mg/dL (0.7-1.3) 3.3 mg/dL (0.7-1.3) Estimated GFR (Cockcroft-Gault) 22.6 24.2 BUN/Creatinine Ratio 11 (6-20) 13 (6-20) Glucose Level 297 mg/dL (70-99) 335 mg/dL (70-99) Calcium Level 6.8 mg/dL (8.5-10.1) 6.0 mg/dL (8.5-10.1) Total Bilirubin 3.9 mg/dL (0.2-1.0) 3.4 mg/dL (0.2-1.0) Aspartate Amino Transf (AST/SGOT) 185 U/L (15-37) 163 U/L (15-37) Alanine Aminotransferase (ALT/SGPT) 288 U/L (16-63) 213 U/L (16-63) Alkaline Phosphatase 99 U/L (46-116) 86 U/L (46-116) Total Protein 6.8 g/dL (6.4-8.2) 6.4 g/dL (6.4-8.2) Albumin 3.8 g/dL (3.4-5.0) 3.2 g/dL (3.4-5.0) Albumin/Globulin Ratio 1.3 (1.0-1.7) 1.0 (1.0-1.7) Lipase 8263 U/L (73-393) Medications Current Medications Morphine Sulfate (Morphine Sulfate) 4 mg PRN Q15MIN PRN IV/SQ PAIN GREATER THAN 3/10 Last administered on 06/11/19at 04:58; Start 06/11/19 at 04:30; Stop 06/11/19 at 16:47; Status DC Sodium Chloride 1,000 ml @ 1,000 mls/hr Q1H IV Last administered on 06/11/19at 04:34; Start 06/11/19 at 04:30; Stop 06/11/19 at 05:29; Status DC Ondansetron HCl (Zofran) 4 mg 1X ONCE IV Last administered on 06/11/19at 04:33; Start 06/11/19 at 04:30; Stop 06/11/19 at 04:33; Status DC Iohexol (Omnipaque 350 Mg/ml) 100 ml 1X ONCE IV Last administered on 06/11/19at 05:01; Start 06/11/19 at 04:45; Stop 06/11/19 at 04:46; Status DC Info (CONTRAST GIVEN -- Rx MONITORING) 1 each PRN DAILY PRN MC SEE COMMENTS; Start 06/11/19 at 04:45; Stop 06/13/19 at 04:44 Fentanyl Citrate (Fentanyl 2ml Vial) 100 mcg STK-MED ONCE .ROUTE ; Start 06/11/19 at 04:42; Stop 06/11/19 at 04:42; Status DC Fentanyl Citrate (Fentanyl 2ml Vial) 50 mcg 1X ONCE IVP Last administered on 06/11/19at 04:45; Start 06/11/19 at 05:00; Stop 06/11/19 at 05:01; Status DC Ondansetron HCl (Zofran) 4 mg PRN Q8HRS PRN IV NAUSEA/VOMITING Last administered on 06/12/19at 03:29; Start 06/11/19 at 05:45; Stop 06/12/19 at 05:44; Status DC Morphine Sulfate (Morphine Sulfate) 4 mg PRN Q2HR PRN IV PAIN Last administered on 06/11/19at 07:37; Start 06/11/19 at 05:45; Stop 06/11/19 at 11:54; Status DC Sodium Chloride 1,000 ml @ 150 mls/hr Q6H40M IV Last administered on 06/12/19at 03:28; Start 06/11/19 at 05:45 Hydromorphone HCl (Dilaudid) 0.5 mg PRN Q3HRS PRN IV PAIN Last administered on 06/11/19at 08:38; Start 06/11/19 at 05:45; Stop 06/11/19 at 09:12; Status DC Potassium Chloride/Water 100 ml @ 100 mls/hr Q1H IV Last administered on 06/11/19at 08:41; Start 06/11/19 at 06:00; Stop 06/11/19 at 07:59; Status DC Hydromorphone HCl (Dilaudid) 1 mg PRN Q3HRS PRN IV PAIN Last administered on 06/11/19at 09:29; Start 06/11/19 at 09:15; Stop 06/11/19 at 11:54; Status DC Prochlorperazine Edisylate (Compazine) 10 mg PRN Q8HRS PRN IV NAUSEA/VOMITING Last administered on 06/12/19at 06:40; Start 06/11/19 at 12:00 Hydromorphone HCl (Dilaudid) 1 mg PRN Q2HRS PRN IV PAIN Last administered on 06/12/19at 06:35; Start 06/11/19 at 12:00 Pantoprazole Sodium (PROTONIX VIAL for IV PUSH) 40 mg DAILYAC IVP Last adminis tered on 06/12/19at 08:29; Start 06/11/19 at 15:00 Lorazepam (Ativan Inj) 1 mg PRN Q6HRS PRN IVP ANXIETY / AGITATION; Start 05/18 10/03 at 18:15 Hydralazine HCl (Apresoline Inj) 10 mg PRN Q6HRS PRN IVP ELEVATED BP, SEE COMMENTS Last administered on 06/11/19at 18:22; Start 06/11/19 at 18:15 Nystatin (Nystop) 1 devorah PRN QID PRN TP FUNGAL RASH Last administered on 06/11/19at 23:19; Start 06/11/19 at 23:15 Sodium Chloride 1,000 ml @ 1,000 mls/hr 1X ONCE IV Last administered on 06/12/19at 05:27; Start 06/12/19 at 06:00; Stop 06/12/19 at 06:59; Status DC Sodium Chloride 1,000 ml @ 1,000 mls/hr 1X ONCE IV Last administered on 06/12/19at 05:25; Start 06/12/19 at 05:00; Stop 06/12/19 at 05:59; Status DC Sodium Chloride 1,000 ml @ 200 mls/hr Q5H IV Last administered on 06/12/19at 06:36; Start 06/12/19 at 07:00 Sodium Bicarbonate 50 meq/Sodium Chloride 1,050 ml @ 150 mls/hr Q7H IV ; Start 06/12/19 at 11:00 Active Scripts Active Vitals/I & O Vital Sign - Last 24 Hours 06/11/19 06/11/19 06/11/19 06/11/19 10:07 11:00 12:01 14:49 Temp 97.3 97.3 Pulse 110 Resp 18 B/P (MAP) 148/110 (123) Pulse Ox 92 O2 Delivery Room Air Room Air Room Air Room Air 06/11/19 06/11/19 06/11/19 06/11/19 15:00 15:19 17:57 18:22 Temp 97.7 97.7 Pulse 118 118 Resp 19 B/P (MAP) 167/113 (131) 167/113 Pulse Ox 94 O2 Delivery Room Air Room Air Room Air 06/11/19 06/11/19 06/11/19 06/11/19 19:00 20:00 21:25 21:55 Temp 97.3 97.3 Pulse 132 Resp 22 18 18 B/P (MAP) 138/98 (111) Pulse Ox 94 94 94 O2 Delivery Room Air Room Air Room Air Room Air 06/11/19 06/12/19 06/12/19 06/12/19 23:00 03:00 03:32 04:15 Temp 97.2 97.0 97.9 97.2 97.0 97.9 Pulse 131 130 126 Resp 20 32 18 19 B/P (MAP) 131/87 (102) 131/88 (102) 102/82 (89) Pulse Ox 90 95 95 96 O2 Delivery Room Air Room Air Room Air Nasal Cannula O2 Flow Rate 3.0 06/12/19 06/12/19 06/12/19 06/12/19 04:30 04:45 05:00 06:00 Pulse 124 124 122 120 Resp 17 20 19 20 B/P (MAP) 124/74 (91) 125/80 (95) 125/94 (104) 163/98 (119) Pulse Ox 98 98 98 96 O2 Delivery Nasal Cannula Nasal Cannula Nasal Cannula Nasal Cannula O2 Flow Rate 3.0 3.0 3.0 3.0 06/12/19 06/12/19 06:35 07:00 Pulse 128 Resp 20 18 B/P (MAP) 101/82 (88) Pulse Ox 95 94 O2 Delivery Nasal Cannula Nasal Cannula O2 Flow Rate 2.0 3.0 Intake and Output 06/11/19 06/11/19 06/12/19 14:59 22:59 06:59 Intake Total 1000 ml 1000 ml Output Total 250 ml 400 ml 150 ml Balance -250 ml 600 ml 850 ml JERSON AVILES MD Jun 12, 2019 09:58
[2019-06-12] MEDS ORDERED: AMINO AC 3%/ELECTROLYTE/GLYCER 1,000 ML IV SCH (10:00)
--- NOTE | 2019-06-12 10:00 | PDOC2 ---
CONSULT Date of Consult Date of Consult DATE: 06/12/19 TIME: 09:55 Reason for Consult Reason for Consult: FABIOLA Referring Physician Referring Physician: JI Identification/Chief Complaint Chief Complaint N/V Source Source: Chart review, Patient History of Present Illness Reason for Visit: THIS IS A 49 YR OLD WITH SEVERAL DAY HX OF N/V AND ABD PAIN. LAST ATE COUPLE DAYS AGO. LABS NOTABLE FOR INCREASED LFT'S, LEUCOCYTOSIS AND FABIOLA. CR OF 3.5 WITH K OF 6.6 AND MET ACIDOSIS. HEMODYNAMICALLY STABLE. NO NEPHROTOXINS. NO CKD HX OR OTHER HX NOTED Past Medical History GI: GERD Past Surgical History Past Surgical History: No pertinent history Family History Family History: No Significant Social History No ALCOHOL: none Lives: with Family Current Problem List Problem List Problems Medical Problems: (1) Acute pancreatitis Status: Acute (2) Nausea & vomiting Status: Acute Current Medications Current Medications Current Medications Morphine Sulfate (Morphine Sulfate) 4 mg PRN Q15MIN PRN IV/SQ PAIN GREATER THAN 3/10 Last administered on 06/11/19at 04:58; Start 06/11/19 at 04:30; Stop 06/11/19 at 16:47; Status DC Sodium Chloride 1,000 ml @ 1,000 mls/hr Q1H IV Last administered on 06/11/19at 04:34; Start 06/11/19 at 04:30; Stop 06/11/19 at 05:29; Status DC Ondansetron HCl (Zofran) 4 mg 1X ONCE IV Last administered on 06/11/19at 04:33; Start 06/11/19 at 04:30; Stop 06/11/19 at 04:33; Status DC Iohexol (Omnipaque 350 Mg/ml) 100 ml 1X ONCE IV Last administered on 06/11/19at 05:01; Start 06/11/19 at 04:45; Stop 06/11/19 at 04:46; Status DC Info (CONTRAST GIVEN -- Rx MONITORING) 1 each PRN DAILY PRN MC SEE COMMENTS; Start 06/11/19 at 04:45; Stop 06/13/19 at 04:44 Fentanyl Citrate (Fentanyl 2ml Vial) 100 mcg STK-MED ONCE .ROUTE ; Start 06/11/19 at 04:42; Stop 06/11/19 at 04:42; Status DC Fentanyl Citrate (Fentanyl 2ml Vial) 50 mcg 1X ONCE IVP Last administered on 06/11/19 04:45; Start 06/11/19 at 05:00; Stop 06/11/19 at 05:01; Status DC Ondansetron HCl (Zofran) 4 mg PRN Q8HRS PRN IV NAUSEA/VOMITING Last administered on 06/12/19at 03:29; Start 06/11/19 at 05:45; Stop 06/12/19 at 05:44; Status DC Morphine Sulfate (Morphine Sulfate) 4 mg PRN Q2HR PRN IV PAIN Last administered on 06/11/19at 07:37; Start 06/11/19 at 05:45; Stop 06/11/19 at 11:54; Status DC Sodium Chloride 1,000 ml @ 150 mls/hr Q6H40M IV Last administered on 06/12/19at 03:28; Start 06/11/19 at 05:45 Hydromorphone HCl (Dilaudid) 0.5 mg PRN Q3HRS PRN IV PAIN Last administered on 06/11/19at 08:38; Start 06/11/19 at 05:45; Stop 06/11/19 at 09:12; Status DC Potassium Chloride/Water 100 ml @ 100 mls/hr Q1H IV Last administered on 06/11/19at 08:41; Start 06/11/19 at 06:00; Stop 06/11/19 at 07:59; Status DC Hydromorphone HCl (Dilaudid) 1 mg PRN Q3HRS PRN IV PAIN Last administered on 06/11/19 09:29; Start 06/11/19 at 09:15; Stop 06/11/19 at 11:54; Status DC Prochlorperazine Edisylate (Compazine) 10 mg PRN Q8HRS PRN IV NAUSEA/VOMITING Last administered on 06/12/19 06:40; Start 06/11/19 at 12:00 Hydromorphone HCl (Dilaudid) 1 mg PRN Q2HRS PRN IV PAIN Last administered on 06/12/19at 06:35; Start 06/11/19 at 12:00 Pantoprazole Sodium (PROTONIX VIAL for IV PUSH) 40 mg DAILYAC IVP Last administered on 06/12/19at 08:29; Start 06/11/19 at 15:00 Lorazepam (Ativan Inj) 1 mg PRN Q6HRS PRN IVP ANXIETY / AGITATION; Start 06/11/19 at 18:15 Hydralazine HCl (Apresoline Inj) 10 mg PRN Q6HRS PRN IVP ELEVATED BP, SEE COMMENTS Last administered on 06/11/19at 18:22; Start 06/11/19 at 18:15 Nystatin (Nystop) 1 devorah PRN QID PRN TP FUNGAL RASH Last administered on 06/11/19at 23:19; Start 06/11/19 at 23:15 Sodium Chloride 1,000 ml @ 1,000 mls/hr 1X ONCE IV Last administered on 06/12/19at 05:27; Start 06/12/19 at 06:00; Stop 06/12/19 at 06:59; Status DC Sodium Chloride 1,000 ml @ 1,000 mls/hr 1X ONCE IV Last administered on 06/12/19at 05:25; Start 06/12/19 at 05:00; Stop 06/12/19 at 05:59; Status DC Sodium Chloride 1,000 ml @ 200 mls/hr Q5H IV Last administered on 06/12/19at 06:36; Start 06/12/19 at 07:00 Sodium Bicarbonate 50 meq/Sodium Chloride 1,050 ml @ 150 mls/hr Q7H IV ; Start 06/12/19 at 11:00 Active Scripts Active Allergies Allergies: Coded Allergies: No Known Drug Allergies (Unverified , 01/28/16) ROS General: YES: Fatigue, Malaise PSYCHOLOGICAL ROS: YES: Anxiety, Depression Eyes: Yes Decreased vision HEENT: YES: Heacaches Gastrointestinal: Yes Nausea, Yes Vomiting Genitourinary: YES Frequency Musculoskeletal: Yes Muscular Weakness Neurological: Yes Weakness Skin: Yes Dry Skin Physical Exam General: Alert, Oriented X3, Cooperative, No acute distress HEENT: Atraumatic, PERRLA Lungs: Clear to auscultation Heart: Regular rate Abdomen: Normal bowel sounds Extremities: No clubbing Skin: No breakdown Neuro: Normal speech, Cranial nerves 3-12 NL Psych/Mental Status: Mental status NL, Mood NL MUSCULOSKELETAL: No joint tenderness, No deformity, No swelling Vitals VITALS Vital Signs Date Time Temp Pulse Resp B/P (MAP) Pulse Ox O2 Delivery O2 Flow Rate FiO2 06/12/19 07:00 128 18 101/82 (88) 94 Nasal Cannula 3.0 06/12/19 04:15 97.9 97.9 Labs Labs Laboratory Tests Test 06/11/19 05:05 06/11/19 07:50 06/11/19 08:55 06/12/19 02:54 White Blood Count 18.6 x10^3/uL (4.0-11.0) Red Blood Count 4.71 x10^6/uL (4.30-5.70) Hemoglobin 13.5 g/dL (13.0-17.5) Hematocrit 41.0 % (39.0-53.0) Mean Corpuscular Volume 87 fL (79-100) Mean Corpuscular Hemoglobin 29 pg (25-35) Mean Corpuscular Hemoglobin Concent 33 g/dL (31-37) Red Cell Distribution Width 13.6 % (11.5-14.5) Platelet Count 188 x10^3/uL (140-400) Neutrophils (%) (Auto) 77 % (31-73) Lymphocytes (%) (Auto) 16 % (24-48) Monocytes (%) (Auto) 6 % (0-9) Eosinophils (%) (Auto) 0 % (0-3) Basophils (%) (Auto) 0 % (0-3) Neutrophils # (Auto) 14.3 x10^3/uL (1.8-7.7) Lymphocytes # (Auto) 3.0 x10^3/uL (1.0-4.8) Monocytes # (Auto) 1.2 x10^3/uL (0.0-1.1) Eosinophils # (Auto) 0.0 x10^3/uL (0.0-0.7) Basophils # (Auto) 0.0 x10^3/uL (0.0-0.2) Sodium Level 143 mmol/L (136-145) Potassium Level 3.1 mmol/L (3.5-5.1) Chloride Level 105 mmol/L (98-107) Carbon Dioxide Level 26 mmol/L (21-32) Anion Gap 12 (6-14) Blood Urea Nitrogen 20 mg/dL (8-26) Creatinine 1.3 mg/dL (0.7-1.3) Estimated GFR (Cockcroft-Gault) 71.0 BUN/Creatinine Ratio 15 (6-20) Glucose Level 198 mg/dL (70-99) Lactic Acid Level 3.5 mmol/L (0.4-2.0) 2.8 mmol/L (0.4-2.0) Calcium Level 8.4 mg/dL (8.5-10.1) Total Bilirubin 1.5 mg/dL (0.2-1.0) Aspartate Amino Transf (AST/SGOT) 192 U/L (15-37) Alanine Aminotransferase (ALT/SGPT) 166 U/L (16-63) Alkaline Phosphatase 75 U/L (46-116) Lactate Dehydrogenase 279 U/L (85-227) Troponin I Quantitative < 0.017 ng/mL (0.000-0.055) Total Protein 6.1 g/dL (6.4-8.2) Albumin 3.4 g/dL (3.4-5.0) Albumin/Globulin Ratio 1.3 (1.0-1.7) Lipase 61822 U/L (73-393) Urine Collection Type Unknown Urine Color Yellow Urine Clarity Clear Urine pH 5.5 Urine Specific [place] >=1.030 Urine Protein Negative mg/dL (NEG-TRACE) Urine Glucose (UA) 250 mg/dL (NEG) Urine Ketones (Stick) Negative mg/dL (NEG) Urine Blood Negative (NEG) Urine Nitrite Negative (NEG) Urine Bilirubin Negative (NEG) Urine Urobilinogen Dipstick 1.0 mg/dL (0.2 mg/dL) Urine Leukocyte Esterase Negative (NEG) Urine RBC 0 /HPF (0-2) Urine WBC 0 /HPF (0-4) Urine Bacteria 0 /HPF (0-FEW) O2 Saturation 94 % (92-99) Arterial Blood pH 7.30 (7.35-7.45) Arterial Blood pCO2 at Patient Temp 31 mmHg (35-46) Arterial Blood pO2 at Patient Temp 75 mmHg (75-108) Arterial Blood HCO3 15 mmol/L (21-28) Arterial Blood Base Excess -10 mmol/L (-3-3) FiO2 21 Test 06/12/19 03:32 06/12/19 08:20 White Blood Count 14.4 x10^3/uL (4.0-11.0) Red Blood Count 5.80 x10^6/uL (4.30-5.70) Hemoglobin 16.9 g/dL (13.0-17.5) Hematocrit 51.4 % (39.0-53.0) Mean Corpuscular Volume 89 fL (79-100) Mean Corpuscular Hemoglobin 29 pg (25-35) Mean Corpuscular Hemoglobin Concent 33 g/dL (31-37) Red Cell Distribution Width 14.0 % (11.5-14.5) Platelet Count 193 x10^3/uL (140-400) Sodium Level 140 mmol/L (136-145) 141 mmol/L (136-145) Potassium Level 6.1 mmol/L (3.5-5.1) 6.6 mmol/L (3.5-5.1) Chloride Level 104 mmol/L (98-107) 107 mmol/L (98-107) Carbon Dioxide Level 18 mmol/L (21-32) 17 mmol/L (21-32) Anion Gap 18 (6-14) 17 (6-14) Blood Urea Nitrogen 38 mg/dL (8-26) 43 mg/dL (8-26) Creatinine 3.5 mg/dL (0.7-1.3) 3.3 mg/dL (0.7-1.3) Estimated GFR (Cockcroft-Gault) 22.6 24.2 BUN/Creatinine Ratio 11 (6-20) 13 (6-20) Glucose Level 297 mg/dL (70-99) 335 mg/dL (70-99) Calcium Level 6.8 mg/dL (8.5-10.1) 6.0 mg/dL (8.5-10.1) Total Bilirubin 3.9 mg/dL (0.2-1.0) 3.4 mg/dL (0.2-1.0) Aspartate Amino Transf (AST/SGOT) 185 U/L (15-37) 163 U/L (15-37) Alanine Aminotransferase (ALT/SGPT) 288 U/L (16-63) 213 U/L (16-63) Alkaline Phosphatase 99 U/L (46-116) 86 U/L (46-116) Total Protein 6.8 g/dL (6.4-8.2) 6.4 g/dL (6.4-8.2) Albumin 3.8 g/dL (3.4-5.0) 3.2 g/dL (3.4-5.0) Albumin/Globulin Ratio 1.3 (1.0-1.7) 1.0 (1.0-1.7) Lipase 8263 U/L (73-393) Laboratory Tests Test 06/12/19 02:54 06/12/19 03:32 06/12/19 08:20 O2 Saturation 94 % (92-99) Arterial Blood pH 7.30 (7.35-7.45) Arterial Blood pCO2 at Patient Temp 31 mmHg (35-46) Arterial Blood pO2 at Patient Temp 75 mmHg (75-108) Arterial Blood HCO3 15 mmol/L (21-28) Arterial Blood Base Excess -10 mmol/L (-3-3) FiO2 21 White Blood Count 14.4 x10^3/uL (4.0-11.0) Red Blood Count 5.80 x10^6/uL (4.30-5.70) Hemoglobin 16.9 g/dL (13.0-17.5) Hematocrit 51.4 % (39.0-53.0) Mean Corpuscular Volume 89 fL (79-100) Mean Corpuscular Hemoglobin 29 pg (25-35) Mean Corpuscular Hemoglobin Concent 33 g/dL (31-37) Red Cell Distribution Width 14.0 % (11.5-14.5) Platelet Count 193 x10^3/uL (140-400) Sodium Level 140 mmol/L (136-145) 141 mmol/L (136-145) Potassium Level 6.1 mmol/L (3.5-5.1) 6.6 mmol/L (3.5-5.1) Chloride Level 104 mmol/L (98-107) 107 mmol/L (98-107) Carbon Dioxide Level 18 mmol/L (21-32) 17 mmol/L (21-32) Anion Gap 18 (6-14) 17 (6-14) Blood Urea Nitrogen 38 mg/dL (8-26) 43 mg/dL (8-26) Creatinine 3.5 mg/dL (0.7-1.3) 3.3 mg/dL (0.7-1.3) Estimated GFR (Cockcroft-Gault) 22.6 24.2 BUN/Creatinine Ratio 11 (6-20) 13 (6-20) Glucose Level 297 mg/dL (70-99) 335 mg/dL (70-99) Calcium Level 6.8 mg/dL (8.5-10.1) 6.0 mg/dL (8.5-10.1) Total Bilirubin 3.9 mg/dL (0.2-1.0) 3.4 mg/dL (0.2-1.0) Aspartate Amino Transf (AST/SGOT) 185 U/L (15-37) 163 U/L (15-37) Alanine Aminotransferase (ALT/SGPT) 288 U/L (16-63) 213 U/L (16-63) Alkaline Phosphatase 99 U/L (46-116) 86 U/L (46-116) Total Protein 6.8 g/dL (6.4-8.2) 6.4 g/dL (6.4-8.2) Albumin 3.8 g/dL (3.4-5.0) 3.2 g/dL (3.4-5.0) Albumin/Globulin Ratio 1.3 (1.0-1.7) 1.0 (1.0-1.7) Lipase 8263 U/L (73-393) Assessment/Plan Assessment/Plan IMP FABIOLA DEHYDRATION HYPERKALEMIA MET ACIDOSIS HYPOCALCEMIA PANCREATITIS CHOLELITHIASIS PLAN HYDRATION HCO3 GTT SURGICAL EVAL GI EVAL CONSIDER ANTIBIOTICS PPN WILL FOLLOW BERE QUIROZ MD Jun 12, 2019 09:59
[2019-06-12] MEDS: SODIUM BICARBONATE VIAL 50 MEQ in IV 1/2 NORMAL SALINE 1,000 ML IV SCH ×2 (10:43→18:56)
--- NOTE | 2019-06-12 12:28 | PDOC ---
MAXIMILIANO GREENBERG DEPALLETIZER OPERATOR 06/12/19 1228: SURGICAL PROGRESS NOTE Subjective resting pain lower abdomen no emesis Vital Signs Vital Signs Date Time Temp Pulse Resp B/P (MAP) Pulse Ox O2 Delivery O2 Flow Rate FiO2 06/12/19 12:00 95 Nasal Cannula 3.0 06/12/19 11:00 118 20 134/82 (99) 06/12/19 08:00 98.3 98.3 I&O Intake and Output 06/12/19 07:00 Intake Total 4000 ml Output Total 800 ml Balance 3200 ml Intake Oral 0 ml IV Total 4000 ml Output Urine Total 750 ml Emesis 50 ml General: Alert, Cooperative, No acute distress Abdomen: Soft, Other (ttp left abdomen, mildly distended ) Labs Laboratory Tests Test 06/11/19 05:05 06/11/19 07:50 06/11/19 08:55 06/12/19 02:54 White Blood Count 18.6 x10^3/uL (4.0-11.0) Red Blood Count 4.71 x10^6/uL (4.30-5.70) Hemoglobin 13.5 g/dL (13.0-17.5) Hematocrit 41.0 % (39.0-53.0) Mean Corpuscular Volume 87 fL (79-100) Mean Corpuscular Hemoglobin 29 pg (25-35) Mean Corpuscular Hemoglobin Concent 33 g/dL (31-37) Red Cell Distribution Width 13.6 % (11.5-14.5) Platelet Count 188 x10^3/uL (140-400) Neutrophils (%) (Auto) 77 % (31-73) Lymphocytes (%) (Auto) 16 % (24-48) Monocytes (%) (Auto) 6 % (0-9) Eosinophils (%) (Auto) 0 % (0-3) Basophils (%) (Auto) 0 % (0-3) Neutrophils # (Auto) 14.3 x10^3/uL (1.8-7.7) Lymphocytes # (Auto) 3.0 x10^3/uL (1.0-4.8) Monocytes # (Auto) 1.2 x10^3/uL (0.0-1.1) Eosinophils # (Auto) 0.0 x10^3/uL (0.0-0.7) Basophils # (Auto) 0.0 x10^3/uL (0.0-0.2) Sodium Level 143 mmol/L (136-145) Potassium Level 3.1 mmol/L (3.5-5.1) Chloride Level 105 mmol/L (98-107) Carbon Dioxide Level 26 mmol/L (21-32) Anion Gap 12 (6-14) Blood Urea Nitrogen 20 mg/dL (8-26) Creatinine 1.3 mg/dL (0.7-1.3) Estimated GFR (Cockcroft-Gault) 71.0 BUN/Creatinine Ratio 15 (6-20) Glucose Level 198 mg/dL (70-99) Lactic Acid Level 3.5 mmol/L (0.4-2.0) 2.8 mmol/L (0.4-2.0) Calcium Level 8.4 mg/dL (8.5-10.1) Total Bilirubin 1.5 mg/dL (0.2-1.0) Aspartate Amino Transf (AST/SGOT) 192 U/L (15-37) Alanine Aminotransferase (ALT/SGPT) 166 U/L (16-63) Alkaline Phosphatase 75 U/L (46-116) Lactate Dehydrogenase 279 U/L (85-227) Troponin I Quantitative < 0.017 ng/mL (0.000-0.055) Total Protein 6.1 g/dL (6.4-8.2) Albumin 3.4 g/dL (3.4-5.0) Albumin/Globulin Ratio 1.3 (1.0-1.7) Lipase 40274 U/L (73-393) Urine Collection Type Unknown Urine Color Yellow Urine Clarity Clear Urine pH 5.5 Urine Specific [place] >=1.030 Urine Protein Negative mg/dL (NEG-TRACE) Urine Glucose (UA) 250 mg/dL (NEG) Urine Ketones (Stick) Negative mg/dL (NEG) Urine Blood Negative (NEG) Urine Nitrite Negative (NEG) Urine Bilirubin Negative (NEG) Urine Urobilinogen Dipstick 1.0 mg/dL (0.2 mg/dL) Urine Leukocyte Esterase Negative (NEG) Urine RBC 0 /HPF (0-2) Urine WBC 0 /HPF (0-4) Urine Bacteria 0 /HPF (0-FEW) O2 Saturation 94 % (92-99) Arterial Blood pH 7.30 (7.35-7.45) Arterial Blood pCO2 at Patient Temp 31 mmHg (35-46) Arterial Blood pO2 at Patient Temp 75 mmHg (75-108) Arterial Blood HCO3 15 mmol/L (21-28) Arterial Blood Base Excess -10 mmol/L (-3-3) FiO2 21 Test 06/12/19 03:32 06/12/19 08:20 White Blood Count 14.4 x10^3/uL (4.0-11.0) Red Blood Count 5.80 x10^6/uL (4.30-5.70) Hemoglobin 16.9 g/dL (13.0-17.5) Hematocrit 51.4 % (39.0-53.0) Mean Corpuscular Volume 89 fL (79-100) Mean Corpuscular Hemoglobin 29 pg (25-35) Mean Corpuscular Hemoglobin Concent 33 g/dL (31-37) Red Cell Distribution Width 14.0 % (11.5-14.5) Platelet Count 193 x10^3/uL (140-400) Sodium Level 140 mmol/L (136-145) 141 mmol/L (136-145) Potassium Level 6.1 mmol/L (3.5-5.1) 6.6 mmol/L (3.5-5.1) Chloride Level 104 mmol/L (98-107) 107 mmol/L (98-107) Carbon Dioxide Level 18 mmol/L (21-32) 17 mmol/L (21-32) Anion Gap 18 (6-14) 17 (6-14) Blood Urea Nitrogen 38 mg/dL (8-26) 43 mg/dL (8-26) Creatinine 3.5 mg/dL (0.7-1.3) 3.3 mg/dL (0.7-1.3) Estimated GFR (Cockcroft-Gault) 22.6 24.2 BUN/Creatinine Ratio 11 (6-20) 13 (6-20) Glucose Level 297 mg/dL (70-99) 335 mg/dL (70-99) Calcium Level 6.8 mg/dL (8.5-10.1) 6.0 mg/dL (8.5-10.1) Total Bilirubin 3.9 mg/dL (0.2-1.0) 3.4 mg/dL (0.2-1.0) Aspartate Amino Transf (AST/SGOT) 185 U/L (15-37) 163 U/L (15-37) Alanine Aminotransferase (ALT/SGPT) 288 U/L (16-63) 213 U/L (16-63) Alkaline Phosphatase 99 U/L (46-116) 86 U/L (46-116) Total Protein 6.8 g/dL (6.4-8.2) 6.4 g/dL (6.4-8.2) Albumin 3.8 g/dL (3.4-5.0) 3.2 g/dL (3.4-5.0) Albumin/Globulin Ratio 1.3 (1.0-1.7) 1.0 (1.0-1.7) Lipase 8263 U/L (73-393) Laboratory Tests Test 06/12/19 02:54 06/12/19 03:32 06/12/19 08:20 O2 Saturation 94 % (92-99) Arterial Blood pH 7.30 (7.35-7.45) Arterial Blood pCO2 at Patient Temp 31 mmHg (35-46) Arterial Blood pO2 at Patient Temp 75 mmHg (75-108) Arterial Blood HCO3 15 mmol/L (21-28) Arterial Blood Base Excess -10 mmol/L (-3-3) FiO2 21 White Blood Count 14.4 x10^3/uL (4.0-11.0) Red Blood Count 5.80 x10^6/uL (4.30-5.70) Hemoglobin 16.9 g/dL (13.0-17.5) Hematocrit 51.4 % (39.0-53.0) Mean Corpuscular Volume 89 fL (79-100) Mean Corpuscular Hemoglobin 29 pg (25-35) Mean Corpuscular Hemoglobin Concent 33 g/dL (31-37) Red Cell Distribution Width 14.0 % (11.5-14.5) Platelet Count 193 x10^3/uL (140-400) Sodium Level 140 mmol/L (136-145) 141 mmol/L (136-145) Potassium Level 6.1 mmol/L (3.5-5.1) 6.6 mmol/L (3.5-5.1) Chloride Level 104 mmol/L (98-107) 107 mmol/L (98-107) Carbon Dioxide Level 18 mmol/L (21-32) 17 mmol/L (21-32) Anion Gap 18 (6-14) 17 (6-14) Blood Urea Nitrogen 38 mg/dL (8-26) 43 mg/dL (8-26) Creatinine 3.5 mg/dL (0.7-1.3) 3.3 mg/dL (0.7-1.3) Estimated GFR (Cockcroft-Gault) 22.6 24.2 BUN/Creatinine Ratio 11 (6-20) 13 (6-20) Glucose Level 297 mg/dL (70-99) 335 mg/dL (70-99) Calcium Level 6.8 mg/dL (8.5-10.1) 6.0 mg/dL (8.5-10.1) Total Bilirubin 3.9 mg/dL (0.2-1.0) 3.4 mg/dL (0.2-1.0) Aspartate Amino Transf (AST/SGOT) 185 U/L (15-37) 163 U/L (15-37) Alanine Aminotransferase (ALT/SGPT) 288 U/L (16-63) 213 U/L (16-63) Alkaline Phosphatase 99 U/L (46-116) 86 U/L (46-116) Total Protein 6.8 g/dL (6.4-8.2) 6.4 g/dL (6.4-8.2) Albumin 3.8 g/dL (3.4-5.0) 3.2 g/dL (3.4-5.0) Albumin/Globulin Ratio 1.3 (1.0-1.7) 1.0 (1.0-1.7) Lipase 8263 U/L (73-393) Problem List Problems Medical Problems: (1) Acute pancreatitis Status: Acute (2) Nausea & vomiting Status: Acute Assessment/Plan gs pancreatitis supportive measures for pancreatitis KARLA CALL MD 06/12/19 1426: SURGICAL PROGRESS NOTE Assessment/Plan Pt seen and examined. Agree with ms. Greenberg's note Pt with c/o n/V, not interested in NGT abd soft, distended, min TTP cont supportive care for severe pancreatitis. Will attempt to avoid early surgical intervention for pancreatitis given increased morbidity and mortality. Eventual cholecystectomy. MAXIMILIANO GREENBERG APRN Jun 12, 2019 12:28 KARLA CALL MD Jun 12, 2019 14:26
[2019-06-12] MEDS ORDERED: PIP/TAZO PER PHARMACY MC PRN (13:15)
[2019-06-12] MEDS: PIPERACILLIN/TAZOBACTAM 2.25 GM in IV NORMAL SALINE 50ML 50 ML IV SCH ×2 (13:48→18:00)
[2019-06-12] MEDS ORDERED: DEXTROSE 50% 25 GM / 50ML DISP.SYRIN. IV ONE (16:00)
[2019-06-12] MEDS ORDERED: SODIUM BICARB ADULT 8.4% 50 MEQ/50 ML DISP.SYRIN. IV ONE (16:00)
[2019-06-12] MEDS ORDERED: CALCIUM GLUCONATE 1,000 MG in IV NORMAL SALINE 100ML 100 ML IV ONE ×2 (16:00→19:15)
[2019-06-12] MEDS ORDERED: INSULIN REGULAR 100 UNIT/ML 3ML VIAL. IV ONE (16:00)
[2019-06-12] MEDS ORDERED: FUROSEMIDE 40 MG/4 ML VIAL. IVP ONE (16:00)
[2019-06-12 18:04] LABS: CREATININE 4.2 mg/dL (0.7-1.3); GFR 18.3; POTASSIUM 4.7 mmol/L (3.5-5.1)
[2019-06-12 18:10] LABS: CALCIUM 5.9 mg/dL (8.5-10.1)
--- NOTE | 2019-06-12 19:15 | NUR ---
EOSS last k 4.7 past bicarb,insulin,D/50, calcium glucanate. will continue bicarb gtt at 150 hr for cristin critacal lactic reported, will repeat x1 calcium glucanate, calcium level 5.9. patient required frequent pain med for abd pain,compazine x1 given HR 120 remains on 3 L n/c, lung clear
--- NOTE | 2019-06-12 19:35 | NUR ---
Patient has Clinimix scheduled to start at 2140; 1730 K+ results improved, now 4.7. Dr Beth gates, returned page, discussed whether to start Clinimx or hold secondary to Hyperkalemia. Order received to hold Clinimix tonight and reevaluate in am after am lab results.
--- NOTE | 2019-06-12 20:24 | CONS ---
DATE OF CONSULTATION: 06/12/2019 REFERRING PHYSICIAN: Dr. Polk. REASON FOR CONSULTATION: Antibiotic management for gallstone pancreatitis. HISTORY OF PRESENT ILLNESS: A 49-year-old male with history of reflux problems, presented to the ER on 06/11/2019 with complaints of severe epigastric pain radiating to the back. It was sharp in nature with nausea and vomiting. He denies being on any antibiotics prior to admission. White count was elevated at 18,000 with lactic acidosis at 3.5. LFTs were elevated. Lipase was 82,227, creatinine of 1.3, BUN of 20. CT abdomen and pelvis showed findings consistent with acute pancreatitis, no apparent acute complications. Small amount of fluid along the pancreas and retroperitoneal reflection. No apparent pseudocyst, cholelithiasis. Normal caliber aorta without dissection. Minimal dependent atelectasis. Surgery was consulted who planned for cholecystectomy prior to discharge. The patient was encouraged for hydration, pain control, encouraged for ETOH moderation. The patient also had FABIOLA with creatinine of 3.5 and potassium of 6.6 with metabolic acidosis. The patient was started on Zosyn today by Dr. Polk. ID consult has been requested for antibiotic management. The patient required IV fluid bolus earlier this morning. He continues to have stomach ache, also has some nausea. Two daughters at bedside, very supportive. Heartburn is under control with Pepcid. PAST MEDICAL HISTORY: GERD. FAMILY HISTORY: As per HPI. SOCIAL HISTORY: Denies smoking, occasional cigar. Alcohol 3-4 times a week. Drugs none. REVIEW OF SYSTEMS: Abdominal pain, sweating. No fevers or chills. No headache, otherwise negative except for above. CURRENT MEDICATIONS: Zosyn started today, nystatin local application, hydralazine, lorazepam, pantoprazole, hydromorphone. PHYSICAL EXAMINATION: VITAL SIGNS: Temperature 98.3, pulse 118, respiratory rate 20, blood pressure 134/82, oxygen saturation 95% on 3 liters by nasal cannula. GENERAL: Well-developed, well-nourished male, alert, oriented x 3, in [id number] distress from abdominal pain. HEENT: Normocephalic, atraumatic. No oral lesions, no thrush. NECK: Supple, no lymphadenopathy. LUNGS: Clear bilaterally. No wheezing on O2 by nasal cannula 3 liters. HEART: S1, S2, tachycardia. No murmurs. ABDOMEN: Distended from epigastric discomfort on light palpation, some over the right upper quadrant and over both lower quadrants, did not do deep palpation due to pain. EXTREMITIES: No edema, no cyanosis. DERMATOLOGIC: Warm, dry. 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 Multiple tattoos. BACK: Reveals normal curvature. No CVA tenderness. CENTRAL NERVOUS SYSTEM: Alert and oriented x 3, grossly nonfocal. PSYCHIATRIC: Mildly anxious, otherwise cooperative. LABORATORY DATA: WBC 14.4, was 18.6, hemoglobin 16.9, hematocrit 51.4, neutrophils 77%. Lactate 2.8, was 3.5. Sodium 141, potassium 6.6, chloride 107, bicarbonate 17, BUN 43, creatinine 3.3, glucose 335, calcium 6.0, total bilirubin 3.4, AST 163, ALT 213, alkaline phosphatase 86, LDH 279. Lipase was 82,000, now down to 8000. Albumin 3.2. UA negative. IMAGING: CT abdomen, chest and pelvis show findings consistent with acute pancreatitis. No apparent complication. Small amount of fluid along the pancreas and retroperitoneal reflection. No apparent cirrhosis, cholelithiasis. Normal caliber of the aorta with no evidence of dissection. Minimal dependent atelectasis. IMPRESSION: 1. Sepsis source GI pancreatitis 2. Leukocytosis. Lactic acidosis. Improving 3. Acute kidney injury with dehydration. 4. Hyperkalemia and metabolic acidosis. 5. Hypocalcemia. 6. Gallbladder stone pancreatitis.Lipase improved from 80K to 8000 7. Abdominal pain. 8. Hyperglycemia. 9. Basilar atelectasis. RECOMMENDATIONS: 1. Continue empiric Zosyn for now, renal dosing. Pharmacy to assist. May broaden to merrem if no improvement 2. Monitor renal functions closely. 3. General Surgery is following. 4. GI is following. 5. Follow up cultures and lab. 6. Continue supportive care. 7. Maintain aspiration precaution. D/W RN D/W Daughters at bedside Thank you, Dr. Polk for consulting Infectious Disease to participate in this patient's care. If you have any questions, do not hesitate to contact me. THUY GOODMAN MD DR: LUZ MARIA/justyn JOB#: [id number] / [id number] [id number]
[2019-06-12] MEDS: MEROPENEM 500 MG in IV NORMAL SALINE 50ML 50 ML IV SCH (21:38)
[2019-06-12] MEDS: AA 4.25 %/CALCIUM/LYTES/D5W 1,000 ML IV SCH (21:40)
[2019-06-13] VITALS (24 sets, daily range): BP systolic 87–160; BP diastolic 58–110
[2019-06-13] MEDS: HYDROmorphone 2 MG/ML VIAL IV PRN ×5 (01:36→21:46)
[2019-06-13] MEDS: SODIUM BICARBONATE VIAL 50 MEQ in IV 1/2 NORMAL SALINE 1,000 ML IV SCH ×2 (04:16→08:00)
[2019-06-13 06:02] LABS: CREATININE 4.9 mg/dL (0.7-1.3); GFR 15.4; MAGNESIUM 1.8 mg/dL (1.8-2.4); PHOSPHORUS 3.2 mg/dL (2.6-4.7)
[2019-06-13 06:06] LABS: BASO % 0 % (0-3); EOS % 0 % (0-3); HEMATOCRIT 45.1 % (39.0-53.0); HEMOGLOBIN 14.6 g/dL (13.0-17.5); LYMPH # 0.4 x10^3/uL (1.0-4.8); LYMPH % 4 % (24-48); MEAN CORPUSCULAR HEMOGLOBIN 29 pg (25-35); MEAN CORPUSCULAR HGB CONC 32 g/dL (31-37); MEAN CORPUSCULAR VOLUME 89 fL (79-100); MONO # 1.1 x10^3/uL (0.0-1.1); MONO % 10 % (0-9); NEUT # 10.4 x10^3/uL (1.8-7.7); NEUT % 87 % (31-73); PLATELET COUNT 163 x10^3/uL (140-400); RED BLOOD COUNT 5.05 x10^6/uL (4.30-5.70); RED CELL DISTRIBUTION WIDTH 14.4 % (11.5-14.5); WHITE BLOOD COUNT 11.9 x10^3/uL (4.0-11.0)
[2019-06-13] MEDS: PANTOPRAZOLE IV PUSH 40 MG VIAL. IVP SCH ×2 (06:21→21:45)
[2019-06-13 06:24] LABS: CALCIUM 5.1 mg/dL (8.5-10.1); POTASSIUM 6.9 mmol/L (3.5-5.1)
--- NOTE | 2019-06-13 06:59 | PDOC ---
Infectious Disease Note Subjective: Subjective pt cont to have pain in the abdomen no f/c/v/worsening sob no gu symptoms no flatus Vital Signs: Vital Signs Vital Signs Date Time Temp Pulse Resp B/P (MAP) Pulse Ox O2 Delivery O2 Flow Rate FiO2 06/13/19 06:00 22 94 Nasal Cannula 3.0 06/12/19 18:00 122 140/88 (105) 06/12/19 16:00 97.0 97.0 Physical Exam: PHYSICAL EXAM GENERAL: Well-developed, well-nourished male, alert, oriented x 3, in moderate distress from abdominal pain. HEENT: Normocephalic, atraumatic. No oral lesions, no thrush. NECK: Supple, no lymphadenopathy. LUNGS: Clear bilaterally. No wheezing on O2 by nasal cannula 3 liters. HEART: S1, S2, tachycardia. No murmurs. ABDOMEN: Distended from epigastric discomfort on light palpation, some over the right upper quadrant and over both lower quadrants, did not do deep palpation due to pain, no bs, EXTREMITIES: trace edema, no cyanosis. DERMATOLOGIC: Warm, dry. 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 CENTRAL NERVOUS SYSTEM: Alert and oriented x 3, grossly nonfocal. PSYCHIATRIC: Mildly anxious, otherwise cooperative. Medications: Inpatient Meds: Current Medications Medications (Trade) Dose Ordered Sig/Formerly [facility] Start Time Stop Time Status Last Admin Dose Admin Amino Acids/ Electrolytes/ Dextrose 1,000 ml @ 80 mls/hr [id number] 06/12/19 10:15 Amino Acids/ Glycerin/ Electrolytes 1,000 ml @ 80 mls/hr [id number] 06/12/19 10:00 UNV Calcium Gluconate 1000 mg/Sodium Chloride 110 ml @ 220 mls/hr 1X ONCE 06/12/19 19:15 06/12/19 19:44 DC 06/12/19 20:35 220 MLS/HR Dextrose (Dextrose 50%-Water Syringe) 25 gm 1X ONCE 06/12/19 16:00 06/12/19 16:01 DC 06/12/19 16:13 25 GM Fentanyl Citrate (Fentanyl 2ml Vial) 50 mcg 1X ONCE 06/11/19 05:00 06/11/19 05:01 DC 06/11/19 04:45 50 MCG Furosemide (Lasix) 40 mg 1X ONCE 06/12/19 16:00 06/12/19 16:01 DC 06/12/19 16:13 40 MG Hydralazine HCl (Apresoline Inj) 10 mg PRN Q6HRS PRN 06/11/19 18:15 06/11/19 18:22 10 MG Hydromorphone HCl (Dilaudid) 1 mg PRN Q2HRS PRN 06/11/19 12:00 06/13/19 05:34 1 MG Info (CONTRAST GIVEN -- Rx MONITORING) 1 each PRN DAILY PRN 06/11/19 04:45 06/13/19 04:44 DC Insulin Human Regular (HumuLIN R VIAL) 10 unit 1X ONCE 06/12/19 16:00 06/12/19 16:01 DC 06/12/19 16:14 10 UNIT Iohexol (Omnipaque 350 Mg/ml) 100 ml 1X ONCE 06/11/19 04:45 06/11/19 04:46 DC 06/11/19 05:01 100 ML Lorazepam (Ativan Inj) 1 mg PRN Q6HRS PRN 06/11/19 18:15 06/12/19 19:34 1 MG Meropenem 500 mg/ Sodium Chloride 50 ml @ 100 mls/hr Q12HR 06/12/19 21:00 06/12/19 21:38 100 MLS/HR Morphine Sulfate (Morphine Sulfate) 4 mg PRN Q2HR PRN 06/11/19 05:45 06/11/19 11:54 DC 06/11/19 07:37 4 MG Nystatin (Nystop) 1 devorah PRN QID PRN 06/11/19 23:15 06/11/19 23:19 1 DEVORAH Ondansetron HCl (Zofran) 4 mg PRN Q8HRS PRN 06/11/19 05:45 06/12/19 05:44 DC 06/12/19 03:29 4 MG Pantoprazole Sodium (PROTONIX VIAL for IV PUSH) 40 mg [id number] 06/12/19 18:00 06/13/19 06:21 40 MG Piperacillin Sod/ Tazobactam Sod (Zosyn Per Pharmacy) 1 each PRN DAILY PRN 06/12/19 13:15 06/12/19 19:16 DC Piperacillin Sod/ Tazobactam Sod 2.25 gm/Sodium Chloride 50 ml @ 100 mls/hr Q6HRS 06/12/19 13:30 06/12/19 19:15 DC 06/12/19 13:48 100 MLS/HR Potassium Chloride/Water 100 ml @ 100 mls/hr Q1H 06/11/19 06:00 06/11/19 07:59 DC 06/11/19 08:41 100 MLS/HR Prochlorperazine Edisylate (Compazine) 10 mg PRN Q8HRS PRN 06/11/19 12:00 06/12/19 14:59 10 MG Sodium Bicarbonate 50 meq/Sodium Chloride 1,050 ml @ 150 mls/hr Q7H 06/12/19 11:00 06/13/19 04:16 150 MLS/HR Sodium Bicarbonate (Sodium Bicarb Adult 8.4% Syr) 50 meq 1X ONCE 06/12/19 16:00 06/12/19 16:01 DC 06/12/19 16:12 50 MEQ Sodium Chloride 1,000 ml @ 200 mls/hr Q5H 06/12/19 07:00 06/12/19 11:01 DC 06/12/19 06:36 200 MLS/HR Labs: Lab Laboratory Tests Test 06/12/19 08:20 06/12/19 13:55 06/12/19 17:30 06/13/19 05:15 Sodium Level 141 mmol/L (136-145) 142 mmol/L (136-145) 136 mmol/L (136-145) Potassium Level 6.6 mmol/L (3.5-5.1) 6.8 mmol/L (3.5-5.1) 4.7 mmol/L (3.5-5.1) 6.9 mmol/L (3.5-5.1) Chloride Level 107 mmol/L (98-107) 104 mmol/L (98-107) 102 mmol/L (98-107) Carbon Dioxide Level 17 mmol/L (21-32) 24 mmol/L (21-32) 24 mmol/L (21-32) Anion Gap 17 (6-14) 14 (6-14) 10 (6-14) Blood Urea Nitrogen 43 mg/dL (8-26) 56 mg/dL (8-26) 68 mg/dL (8-26) Creatinine 3.3 mg/dL (0.7-1.3) 4.2 mg/dL (0.7-1.3) 4.9 mg/dL (0.7-1.3) Estimated GFR (Cockcroft-Gault) 24.2 18.3 15.4 BUN/Creatinine Ratio 13 (6-20) Glucose Level 335 mg/dL (70-99) 385 mg/dL (70-99) 440 mg/dL (70-99) Calcium Level 6.0 mg/dL (8.5-10.1) 5.9 mg/dL (8.5-10.1) 5.1 mg/dL (8.5-10.1) Total Bilirubin 3.4 mg/dL (0.2-1.0) Aspartate Amino Transf (AST/SGOT) 163 U/L (15-37) Alanine Aminotransferase (ALT/SGPT) 213 U/L (16-63) Alkaline Phosphatase 86 U/L (46-116) Total Protein 6.4 g/dL (6.4-8.2) Albumin 3.2 g/dL (3.4-5.0) Albumin/Globulin Ratio 1.0 (1.0-1.7) Lactic Acid Level 5.1 mmol/L (0.4-2.0) 5.5 mmol/L (0.4-2.0) Ionized Calcium 0.70 mmol/L (1.13-1.32) White Blood Count 11.9 x10^3/uL (4.0-11.0) Red Blood Count 5.05 x10^6/uL (4.30-5.70) Hemoglobin 14.6 g/dL (13.0-17.5) Hematocrit 45.1 % (39.0-53.0) Mean Corpuscular Volume 89 fL (79-100) Mean Corpuscular Hemoglobin 29 pg (25-35) Mean Corpuscular Hemoglobin Concent 32 g/dL (31-37) Red Cell Distribution Width 14.4 % (11.5-14.5) Platelet Count 163 x10^3/uL (140-400) Neutrophils (%) (Auto) 87 % (31-73) Lymphocytes (%) (Auto) 4 % (24-48) Monocytes (%) (Auto) 10 % (0-9) Eosinophils (%) (Auto) 0 % (0-3) Basophils (%) (Auto) 0 % (0-3) Neutrophils # (Auto) 10.4 x10^3/uL (1.8-7.7) Lymphocytes # (Auto) 0.4 x10^3/uL (1.0-4.8) Monocytes # (Auto) 1.1 x10^3/uL (0.0-1.1) Eosinophils # (Auto) 0.0 x10^3/uL (0.0-0.7) Basophils # (Auto) 0.0 x10^3/uL (0.0-0.2) Phosphorus Level 3.2 mg/dL (2.6-4.7) Magnesium Level 1.8 mg/dL (1.8-2.4) Lipase 9902 U/L (73-393) Objective: Assessment: Sepsis from GI Gallbladder stone pancreatitis. Lactic acidosis.Leukocytosis. Acute kidney injury Hyperkalemia and metabolic acidosis. Hypocalcemia. Hyperglycemia. Basilar atelectasis. Plan: Plan of Care Continue empiric merrem.renal dosing Renal ,GI and General Surgery following. Plans are for randi this admission Follow up cultures and lab. Continue supportive care. Maintain aspiration precaution. THUY GOODMAN MD Jun 13, 2019 06:59
--- NOTE | 2019-06-13 07:20 | NUR ---
Lab called critical results of K+ 6.9 and Ca+ 5.1 at 0623; Cr and BUN also worsening of 68/5.1 respectively--Dr Beth Garcia paged at 0715. Dr Garcia returned page at 07, notified of worsening labs, and UO, patient now impulsive and forgetful. Orders received for consents for Temporary dialysis and hemodialysis, and IR to place Temporary Dialysis Catheter. See lab and orders. Addendum: 06/13/19 at 0753 by YOHANA ARTHUR RN Amended: Links added.
--- NOTE | 2019-06-13 07:40 | NUR ---
Spoke to patient and patient's regarding worsening lab and need for Hemodialyis and placement of Temporary Dialysis Catheter/Trialysis Catheter. Patient forgetful, impulsive, and drowsy-- agrees to sign consents. See consents. Dr Karl Garcia (ID) saw patient and notified of plan for Dialysis.
--- NOTE | 2019-06-13 07:50 | NUR ---
Dr Dawson at bedside, updated on patient's overall condition, worsening labs, and plan for dialysis. Also discussed changing pain medication to CREATIVE DIRECTOR and placement of NG to for decompression. Per Dr Dawson, if patient agrees to NG, ok to place and discuss change of pain med to CREATIVE DIRECTOR with PCP.
--- NOTE | 2019-06-13 08:09 | PDOC ---
SURGICAL PROGRESS NOTE Subjective Pt with c/o pain, some confusion, abd distention Vital Signs Vital Signs Date Time Temp Pulse Resp B/P (MAP) Pulse Ox O2 Delivery O2 Flow Rate FiO2 06/13/19 06:00 22 94 Nasal Cannula 3.0 06/12/19 18:00 122 140/88 (105) 06/12/19 16:00 97.0 97.0 I&O Intake and Output 06/13/19 07:00 Intake Total 3502 ml Output Total 1355 ml Balance 2147 ml Intake Oral 0 ml IV Total 3502 ml Output Urine Total 1355 ml General: Alert, moderate distress Abdomen: Soft, Other (distention, mild TTP) Labs Laboratory Tests Test 06/11/19 08:55 06/12/19 02:54 06/12/19 03:32 06/12/19 08:20 Lactic Acid Level 2.8 mmol/L (0.4-2.0) O2 Saturation 94 % (92-99) Arterial Blood pH 7.30 (7.35-7.45) Arterial Blood pCO2 at Patient Temp 31 mmHg (35-46) Arterial Blood pO2 at Patient Temp 75 mmHg (75-108) Arterial Blood HCO3 15 mmol/L (21-28) Arterial Blood Base Excess -10 mmol/L (-3-3) FiO2 21 White Blood Count 14.4 x10^3/uL (4.0-11.0) Red Blood Count 5.80 x10^6/uL (4.30-5.70) Hemoglobin 16.9 g/dL (13.0-17.5) Hematocrit 51.4 % (39.0-53.0) Mean Corpuscular Volume 89 fL (79-100) Mean Corpuscular Hemoglobin 29 pg (25-35) Mean Corpuscular Hemoglobin Concent 33 g/dL (31-37) Red Cell Distribution Width 14.0 % (11.5-14.5) Platelet Count 193 x10^3/uL (140-400) Sodium Level 140 mmol/L (136-145) 141 mmol/L (136-145) Potassium Level 6.1 mmol/L (3.5-5.1) 6.6 mmol/L (3.5-5.1) Chloride Level 104 mmol/L (98-107) 107 mmol/L (98-107) Carbon Dioxide Level 18 mmol/L (21-32) 17 mmol/L (21-32) Anion Gap 18 (6-14) 17 (6-14) Blood Urea Nitrogen 38 mg/dL (8-26) 43 mg/dL (8-26) Creatinine 3.5 mg/dL (0.7-1.3) 3.3 mg/dL (0.7-1.3) Estimated GFR (Cockcroft-Gault) 22.6 24.2 BUN/Creatinine Ratio 11 (6-20) 13 (6-20) Glucose Level 297 mg/dL (70-99) 335 mg/dL (70-99) Calcium Level 6.8 mg/dL (8.5-10.1) 6.0 mg/dL (8.5-10.1) Total Bilirubin 3.9 mg/dL (0.2-1.0) 3.4 mg/dL (0.2-1.0) Aspartate Amino Transf (AST/SGOT) 185 U/L (15-37) 163 U/L (15-37) Alanine Aminotransferase (ALT/SGPT) 288 U/L (16-63) 213 U/L (16-63) Alkaline Phosphatase 99 U/L (46-116) 86 U/L (46-116) Total Protein 6.8 g/dL (6.4-8.2) 6.4 g/dL (6.4-8.2) Albumin 3.8 g/dL (3.4-5.0) 3.2 g/dL (3.4-5.0) Albumin/Globulin Ratio 1.3 (1.0-1.7) 1.0 (1.0-1.7) Lipase 8263 U/L (73-393) Test 06/12/19 13:55 06/12/19 17:30 06/13/19 05:15 Potassium Level 6.8 mmol/L (3.5-5.1) 4.7 mmol/L (3.5-5.1) 6.9 mmol/L (3.5-5.1) Lactic Acid Level 5.1 mmol/L (0.4-2.0) 5.5 mmol/L (0.4-2.0) Ionized Calcium 0.70 mmol/L (1.13-1.32) Sodium Level 142 mmol/L (136-145) 136 mmol/L (136-145) Chloride Level 104 mmol/L (98-107) 102 mmol/L (98-107) Carbon Dioxide Level 24 mmol/L (21-32) 24 mmol/L (21-32) Anion Gap 14 (6-14) 10 (6-14) Blood Urea Nitrogen 56 mg/dL (8-26) 68 mg/dL (8-26) Creatinine 4.2 mg/dL (0.7-1.3) 4.9 mg/dL (0.7-1.3) Estimated GFR (Cockcroft-Gault) 18.3 15.4 Glucose Level 385 mg/dL (70-99) 440 mg/dL (70-99) Calcium Level 5.9 mg/dL (8.5-10.1) 5.1 mg/dL (8.5-10.1) White Blood Count 11.9 x10^3/uL (4.0-11.0) Red Blood Count 5.05 x10^6/uL (4.30-5.70) Hemoglobin 14.6 g/dL (13.0-17.5) Hematocrit 45.1 % (39.0-53.0) Mean Corpuscular Volume 89 fL (79-100) Mean Corpuscular Hemoglobin 29 pg (25-35) Mean Corpuscular Hemoglobin Concent 32 g/dL (31-37) Red Cell Distribution Width 14.4 % (11.5-14.5) Platelet Count 163 x10^3/uL (140-400) Neutrophils (%) (Auto) 87 % (31-73) Lymphocytes (%) (Auto) 4 % (24-48) Monocytes (%) (Auto) 10 % (0-9) Eosinophils (%) (Auto) 0 % (0-3) Basophils (%) (Auto) 0 % (0-3) Neutrophils # (Auto) 10.4 x10^3/uL (1.8-7.7) Lymphocytes # (Auto) 0.4 x10^3/uL (1.0-4.8) Monocytes # (Auto) 1.1 x10^3/uL (0.0-1.1) Eosinophils # (Auto) 0.0 x10^3/uL (0.0-0.7) Basophils # (Auto) 0.0 x10^3/uL (0.0-0.2) Phosphorus Level 3.2 mg/dL (2.6-4.7) Magnesium Level 1.8 mg/dL (1.8-2.4) Lipase 9902 U/L (73-393) Laboratory Tests Test 06/12/19 08:20 06/12/19 13:55 06/12/19 17:30 06/13/19 05:15 Sodium Level 141 mmol/L (136-145) 142 mmol/L (136-145) 136 mmol/L (136-145) Potassium Level 6.6 mmol/L (3.5-5.1) 6.8 mmol/L (3.5-5.1) 4.7 mmol/L (3.5-5.1) 6.9 mmol/L (3.5-5.1) Chloride Level 107 mmol/L (98-107) 104 mmol/L (98-107) 102 mmol/L (98-107) Carbon Dioxide Level 17 mmol/L (21-32) 24 mmol/L (21-32) 24 mmol/L (21-32) Anion Gap 17 (6-14) 14 (6-14) 10 (6-14) Blood Urea Nitrogen 43 mg/dL (8-26) 56 mg/dL (8-26) 68 mg/dL (8-26) Creatinine 3.3 mg/dL (0.7-1.3) 4.2 mg/dL (0.7-1.3) 4.9 mg/dL (0.7-1.3) Estimated GFR (Cockcroft-Gault) 24.2 18.3 15.4 BUN/Creatinine Ratio 13 (6-20) Glucose Level 335 mg/dL (70-99) 385 mg/dL (70-99) 440 mg/dL (70-99) Calcium Level 6.0 mg/dL (8.5-10.1) 5.9 mg/dL (8.5-10.1) 5.1 mg/dL (8.5-10.1) Total Bilirubin 3.4 mg/dL (0.2-1.0) Aspartate Amino Transf (AST/SGOT) 163 U/L (15-37) Alanine Aminotransferase (ALT/SGPT) 213 U/L (16-63) Alkaline Phosphatase 86 U/L (46-116) Total Protein 6.4 g/dL (6.4-8.2) Albumin 3.2 g/dL (3.4-5.0) Albumin/Globulin Ratio 1.0 (1.0-1.7) Lactic Acid Level 5.1 mmol/L (0.4-2.0) 5.5 mmol/L (0.4-2.0) Ionized Calcium 0.70 mmol/L (1.13-1.32) White Blood Count 11.9 x10^3/uL (4.0-11.0) Red Blood Count 5.05 x10^6/uL (4.30-5.70) Hemoglobin 14.6 g/dL (13.0-17.5) Hematocrit 45.1 % (39.0-53.0) Mean Corpuscular Volume 89 fL (79-100) Mean Corpuscular Hemoglobin 29 pg (25-35) Mean Corpuscular Hemoglobin Concent 32 g/dL (31-37) Red Cell Distribution Width 14.4 % (11.5-14.5) Platelet Count 163 x10^3/uL (140-400) Neutrophils (%) (Auto) 87 % (31-73) Lymphocytes (%) (Auto) 4 % (24-48) Monocytes (%) (Auto) 10 % (0-9) Eosinophils (%) (Auto) 0 % (0-3) Basophils (%) (Auto) 0 % (0-3) Neutrophils # (Auto) 10.4 x10^3/uL (1.8-7.7) Lymphocytes # (Auto) 0.4 x10^3/uL (1.0-4.8) Monocytes # (Auto) 1.1 x10^3/uL (0.0-1.1) Eosinophils # (Auto) 0.0 x10^3/uL (0.0-0.7) Basophils # (Auto) 0.0 x10^3/uL (0.0-0.2) Phosphorus Level 3.2 mg/dL (2.6-4.7) Magnesium Level 1.8 mg/dL (1.8-2.4) Lipase 9902 U/L (73-393) Problem List Problems Medical Problems: (1) Acute pancreatitis Status: Acute (2) Nausea & vomiting Status: Acute Assessment/Plan severe pancreatitis agree with dialysis consider NGT supportive care KARLA CALL MD Jun 13, 2019 08:09
[2019-06-13] MEDS ORDERED: LIDOCAINE WITH 8.4% SOD BICARB 3 ML DISP.SYRIN. ONE (08:47)
[2019-06-13 09:02] LABS: % BANDS 24 % (0-9); % LYMPHS 10 % (24-48); % MONOS 10 % (0-10); % MYELOS 1 % (0-0); % SEGS 55 % (35-66)
[2019-06-13 09:03] LABS: PLT ESTIMATE ADEQUATE (ADEQUATE)
[2019-06-13] MEDS ORDERED: LIDOCAINE WITH 8.4% SOD BICARB 3 ML DISP.SYRIN. INJ ONE (09:30)
[2019-06-13] MEDS: MEROPENEM 500 MG in IV NORMAL SALINE 50ML 50 ML IV SCH ×2 (10:03→21:46)
--- NOTE | 2019-06-13 10:05 | RAD ---
KUB History: NG placement Comparison: None. Findings: Single supine AP view of the abdomen is submitted. Enteric catheter terminates in the stomach. No gas dilated small bowel is identified. There is left greater than right bibasilar airspace opacity and likely pleural fluid. Impression: 1. Enteric catheter is in the region of stomach. Electronically signed by: Charlie Sims MD (06/13/2019 10:02 AM) [email or web address]
--- NOTE | 2019-06-13 10:14 | RAD ---
CHEST AP ONLY History: Temporary dialysis catheter placement Comparison: December 14, 2011 Findings: Single view of the chest is submitted. Enteric catheter courses into the region of stomach. There is obscuration of the left hemidiaphragm with adjacent airspace opacity, evidence of at least small to moderate left pleural effusion with adjacent atelectasis or infiltrate. There is also airspace opacity of the medial right lung base and probable small right pleural effusion. There is dual lumen right internal jugular catheter, tip terminating in region of right atrium. No pneumothorax is identified by radiograph. Impression: 1. There is right internal jugular dialysis catheter with tip in the region of right atrium, no definitive pneumothorax identified by radiograph. 2. There are left greater right pleural effusions and bibasilar airspace opacity greater on the left. Electronically signed by: Charlie Sims MD (06/13/2019 10:11 AM) [email or web address]
--- NOTE | 2019-06-13 10:28 | PDOC ---
PROGRESS NOTES History of Present Illness History of Present Illness ASSESSMENT AND PLAN: Acute hypoxemic respiratory failure, Severe pancreatitis. , GALLSTONE pancreatitis MORBID OBESITY ACUTE HYPOXIC RESP FAILURE HYPERKALEMIA TRANSAMINITIS LACTIC ACIDOSIS SEPSIS VOLUME OVERLOAD HYPERGLYCEMIA, UNCONTROLLED admitted consult GI, IV fluids, p.r.n. antiemetics, home medications, deep venous thrombosis prophylaxis. Full code. nephrology consult gen surgery consult GI CONSULT O2 SUPPORT lactic acid with reflex iv zosyn per pharmacy ID CONSULT BLOOD CULT BICARB DRIP temp dialysis catheter PULM CONSULT INSULIN DRIP PROGNOSIS: Guarded. 34 MIN CC TIME Vitals Vitals Vital Signs Date Time Temp Pulse Resp B/P (MAP) Pulse Ox O2 Delivery O2 Flow Rate FiO2 06/13/19 07:00 118 24 140/84 (102) 94 Nasal Cannula 3.0 06/13/19 04:00 98.2 98.2 Physical Exam Physical Exam GENERAL: Well-developed, well-nourished male, alert, oriented x 3, in MILD distress from abdominal pain. HEENT: Normocephalic, atraumatic. No oral lesions, no thrush. NECK: Supple, no lymphadenopathy. LUNGS: DIMINISHED No wheezing on O2 by nasal cannula 3 liters. HEART: S1, S2, tachycardia. No murmurs. ABDOMEN: Distended from epigastric discomfort on light palpation, some over the right upper quadrant and over both lower quadrants, did not do deep palpation due to pain, no bs, EXTREMITIES: trace edema, no cyanosis. DERMATOLOGIC: Warm, dry. 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 CENTRAL NERVOUS SYSTEM: Alert and oriented x 3, grossly nonfocal. PSYCHIATRIC: Mildly anxious, otherwise cooperative. General: Alert, Oriented X3, Cooperative, moderate distress Heart: Regular rate, Normal S1 Lungs: Clear Abdomen: Soft, Other (distention, mild TTP) Extremities: No clubbing Skin: No breakdown Labs LABS CHEST AP ONLY History: Temporary dialysis catheter placement Comparison: December 14, 2011 Findings: Single view of the chest is submitted. Enteric catheter courses into the region of stomach. There is obscuration of the left hemidiaphragm with adjacent airspace opacity, evidence of at least small to moderate left pleural effusion with adjacent atelectasis or infiltrate. There is also airspace opacity of the medial right lung base and probable small right pleural effusion. There is dual lumen right internal jugular catheter, tip terminating in region of right atrium. No pneumothorax is identified by radiograph. Impression: 1. There is right internal jugular dialysis catheter with tip in the region of right atrium, no definitive pneumothorax identified by radiograph. 2. There are left greater right pleural effusions and bibasilar airspace opacity greater on the left. Electronically signed by: Shira Rosas MD (06/13/2019 10:11 AM) [facility] DICTATED and SIGNED BY: SHIRA ROSAS MD DATE: 06/13/19 1011 REASON: TEMPORARY DIALYSIS CATHETER PLACEMENT PROCEDURE: CHEST AP ONLY CHEST AP ONLY History: Temporary dialysis catheter placement Comparison: December 14, 2011 Findings: Single view of the chest is submitted. Enteric catheter courses into the region of stomach. There is obscuration of the left hemidiaphragm with adjacent airspace opacity, evidence of at least small to moderate left pleural effusion with adjacent atelectasis or infiltrate. There is also airspace opacity of the medial right lung base and probable small right pleural effusion. There is dual lumen right internal jugular catheter, tip terminating in region of right atrium. No pneumothorax is identified by radiograph. Impression: 1. There is right internal jugular dialysis catheter with tip in the region of right atrium, no definitive pneumothorax identified by radiograph. 2. There are left greater right pleural effusions and bibasilar airspace opacity greater on the left. Electronically signed by: Shira Rosas MD (06/13/2019 10:11 AM) [facility] DICTATED and SIGNED BY: SHIRA ROSAS MD DATE: 06/13/19 1011 Laboratory Tests Test 06/12/19 13:55 06/12/19 17:30 06/13/19 05:15 Potassium Level 6.8 mmol/L (3.5-5.1) 4.7 mmol/L (3.5-5.1) 6.9 mmol/L (3.5-5.1) Lactic Acid Level 5.1 mmol/L (0.4-2.0) 5.5 mmol/L (0.4-2.0) Ionized Calcium 0.70 mmol/L (1.13-1.32) Sodium Level 142 mmol/L (136-145) 136 mmol/L (136-145) Chloride Level 104 mmol/L (98-107) 102 mmol/L (98-107) Carbon Dioxide Level 24 mmol/L (21-32) 24 mmol/L (21-32) Anion Gap 14 (6-14) 10 (6-14) Blood Urea Nitrogen 56 mg/dL (8-26) 68 mg/dL (8-26) Creatinine 4.2 mg/dL (0.7-1.3) 4.9 mg/dL (0.7-1.3) Estimated GFR (Cockcroft-Gault) 18.3 15.4 Glucose Level 385 mg/dL (70-99) 440 mg/dL (70-99) Calcium Level 5.9 mg/dL (8.5-10.1) 5.1 mg/dL (8.5-10.1) White Blood Count 11.9 x10^3/uL (4.0-11.0) Red Blood Count 5.05 x10^6/uL (4.30-5.70) Hemoglobin 14.6 g/dL (13.0-17.5) Hematocrit 45.1 % (39.0-53.0) Mean Corpuscular Volume 89 fL (79-100) Mean Corpuscular Hemoglobin 29 pg (25-35) Mean Corpuscular Hemoglobin Concent 32 g/dL (31-37) Red Cell Distribution Width 14.4 % (11.5-14.5) Platelet Count 163 x10^3/uL (140-400) Neutrophils (%) (Auto) 87 % (31-73) Lymphocytes (%) (Auto) 4 % (24-48) Monocytes (%) (Auto) 10 % (0-9) Eosinophils (%) (Auto) 0 % (0-3) Basophils (%) (Auto) 0 % (0-3) Neutrophils # (Auto) 10.4 x10^3/uL (1.8-7.7) Lymphocytes # (Auto) 0.4 x10^3/uL (1.0-4.8) Monocytes # (Auto) 1.1 x10^3/uL (0.0-1.1) Eosinophils # (Auto) 0.0 x10^3/uL (0.0-0.7) Basophils # (Auto) 0.0 x10^3/uL (0.0-0.2) Segmented Neutrophils % 55 % (35-66) Band Neutrophils % 24 % (0-9) Lymphocytes % 10 % (24-48) Monocytes % 10 % (0-10) Myelocytes % 1 % (0-0) Platelet Estimate Adequate (ADEQUATE) Phosphorus Level 3.2 mg/dL (2.6-4.7) Magnesium Level 1.8 mg/dL (1.8-2.4) Lipase 9902 U/L (73-393) Assessment and Plan Assessmemt and Plan Problems Medical Problems: (1) Acute pancreatitis Status: Acute (2) Nausea & vomiting Status: Acute Comment Review of Relevant I have reviewed the following items alexandra (where applicable) has been applied. Labs Laboratory Tests Test 06/12/19 02:54 06/12/19 03:32 06/12/19 08:20 06/12/19 13:55 O2 Saturation 94 % (92-99) Arterial Blood pH 7.30 (7.35-7.45) Arterial Blood pCO2 at Patient Temp 31 mmHg (35-46) Arterial Blood pO2 at Patient Temp 75 mmHg (75-108) Arterial Blood HCO3 15 mmol/L (21-28) Arterial Blood Base Excess -10 mmol/L (-3-3) FiO2 21 White Blood Count 14.4 x10^3/uL (4.0-11.0) Red Blood Count 5.80 x10^6/uL (4.30-5.70) Hemoglobin 16.9 g/dL (13.0-17.5) Hematocrit 51.4 % (39.0-53.0) Mean Corpuscular Volume 89 fL (79-100) Mean Corpuscular Hemoglobin 29 pg (25-35) Mean Corpuscular Hemoglobin Concent 33 g/dL (31-37) Red Cell Distribution Width 14.0 % (11.5-14.5) Platelet Count 193 x10^3/uL (140-400) Sodium Level 140 mmol/L (136-145) 141 mmol/L (136-145) Potassium Level 6.1 mmol/L (3.5-5.1) 6.6 mmol/L (3.5-5.1) 6.8 mmol/L (3.5-5.1) Chloride Level 104 mmol/L (98-107) 107 mmol/L (98-107) Carbon Dioxide Level 18 mmol/L (21-32) 17 mmol/L (21-32) Anion Gap 18 (6-14) 17 (6-14) Blood Urea Nitrogen 38 mg/dL (8-26) 43 mg/dL (8-26) Creatinine 3.5 mg/dL (0.7-1.3) 3.3 mg/dL (0.7-1.3) Estimated GFR (Cockcroft-Gault) 22.6 24.2 BUN/Creatinine Ratio 11 (6-20) 13 (6-20) Glucose Level 297 mg/dL (70-99) 335 mg/dL (70-99) Calcium Level 6.8 mg/dL (8.5-10.1) 6.0 mg/dL (8.5-10.1) Total Bilirubin 3.9 mg/dL (0.2-1.0) 3.4 mg/dL (0.2-1.0) Aspartate Amino Transf (AST/SGOT) 185 U/L (15-37) 163 U/L (15-37) Alanine Aminotransferase (ALT/SGPT) 288 U/L (16-63) 213 U/L (16-63) Alkaline Phosphatase 99 U/L (46-116) 86 U/L (46-116) Total Protein 6.8 g/dL (6.4-8.2) 6.4 g/dL (6.4-8.2) Albumin 3.8 g/dL (3.4-5.0) 3.2 g/dL (3.4-5.0) Albumin/Globulin Ratio 1.3 (1.0-1.7) 1.0 (1.0-1.7) Lipase 8263 U/L (73-393) Lactic Acid Level 5.1 mmol/L (0.4-2.0) Ionized Calcium 0.70 mmol/L (1.13-1.32) Test 06/12/19 17:30 06/13/19 05:15 Sodium Level 142 mmol/L (136-145) 136 mmol/L (136-145) Potassium Level 4.7 mmol/L (3.5-5.1) 6.9 mmol/L (3.5-5.1) Chloride Level 104 mmol/L (98-107) 102 mmol/L (98-107) Carbon Dioxide Level 24 mmol/L (21-32) 24 mmol/L (21-32) Anion Gap 14 (6-14) 10 (6-14) Blood Urea Nitrogen 56 mg/dL (8-26) 68 mg/dL (8-26) Creatinine 4.2 mg/dL (0.7-1.3) 4.9 mg/dL (0.7-1.3) Estimated GFR (Cockcroft-Gault) 18.3 15.4 Glucose Level 385 mg/dL (70-99) 440 mg/dL (70-99) Lactic Acid Level 5.5 mmol/L (0.4-2.0) Calcium Level 5.9 mg/dL (8.5-10.1) 5.1 mg/dL (8.5-10.1) White Blood Count 11.9 x10^3/uL (4.0-11.0) Red Blood Count 5.05 x10^6/uL (4.30-5.70) Hemoglobin 14.6 g/dL (13.0-17.5) Hematocrit 45.1 % (39.0-53.0) Mean Corpuscular Volume 89 fL (79-100) Mean Corpuscular Hemoglobin 29 pg (25-35) Mean Corpuscular Hemoglobin Concent 32 g/dL (31-37) Red Cell Distribution Width 14.4 % (11.5-14.5) Platelet Count 163 x10^3/uL (140-400) Neutrophils (%) (Auto) 87 % (31-73) Lymphocytes (%) (Auto) 4 % (24-48) Monocytes (%) (Auto) 10 % (0-9) Eosinophils (%) (Auto) 0 % (0-3) Basophils (%) (Auto) 0 % (0-3) Neutrophils # (Auto) 10.4 x10^3/uL (1.8-7.7) Lymphocytes # (Auto) 0.4 x10^3/uL (1.0-4.8) Monocytes # (Auto) 1.1 x10^3/uL (0.0-1.1) Eosinophils # (Auto) 0.0 x10^3/uL (0.0-0.7) Basophils # (Auto) 0.0 x10^3/uL (0.0-0.2) Segmented Neutrophils % 55 % (35-66) Band Neutrophils % 24 % (0-9) Lymphocytes % 10 % (24-48) Monocytes % 10 % (0-10) Myelocytes % 1 % (0-0) Platelet Estimate Adequate (ADEQUATE) Phosphorus Level 3.2 mg/dL (2.6-4.7) Magnesium Level 1.8 mg/dL (1.8-2.4) Lipase 9902 U/L (73-393) Laboratory Tests Test 06/12/19 13:55 06/12/19 17:30 06/13/19 05:15 Potassium Level 6.8 mmol/L (3.5-5.1) 4.7 mmol/L (3.5-5.1) 6.9 mmol/L (3.5-5.1) Lactic Acid Level 5.1 mmol/L (0.4-2.0) 5.5 mmol/L (0.4-2.0) Ionized Calcium 0.70 mmol/L (1.13-1.32) Sodium Level 142 mmol/L (136-145) 136 mmol/L (136-145) Chloride Level 104 mmol/L (98-107) 102 mmol/L (98-107) Carbon Dioxide Level 24 mmol/L (21-32) 24 mmol/L (21-32) Anion Gap 14 (6-14) 10 (6-14) Blood Urea Nitrogen 56 mg/dL (8-26) 68 mg/dL (8-26) Creatinine 4.2 mg/dL (0.7-1.3) 4.9 mg/dL (0.7-1.3) Estimated GFR (Cockcroft-Gault) 18.3 15.4 Glucose Level 385 mg/dL (70-99) 440 mg/dL (70-99) Calcium Level 5.9 mg/dL (8.5-10.1) 5.1 mg/dL (8.5-10.1) White Blood Count 11.9 x10^3/uL (4.0-11.0) Red Blood Count 5.05 x10^6/uL (4.30-5.70) Hemoglobin 14.6 g/dL (13.0-17.5) Hematocrit 45.1 % (39.0-53.0) Mean Corpuscular Volume 89 fL (79-100) Mean Corpuscular Hemoglobin 29 pg (25-35) Mean Corpuscular Hemoglobin Concent 32 g/dL (31-37) Red Cell Distribution Width 14.4 % (11.5-14.5) Platelet Count 163 x10^3/uL (140-400) Neutrophils (%) (Auto) 87 % (31-73) Lymphocytes (%) (Auto) 4 % (24-48) Monocytes (%) (Auto) 10 % (0-9) Eosinophils (%) (Auto) 0 % (0-3) Basophils (%) (Auto) 0 % (0-3) Neutrophils # (Auto) 10.4 x10^3/uL (1.8-7.7) Lymphocytes # (Auto) 0.4 x10^3/uL (1.0-4.8) Monocytes # (Auto) 1.1 x10^3/uL (0.0-1.1) Eosinophils # (Auto) 0.0 x10^3/uL (0.0-0.7) Basophils # (Auto) 0.0 x10^3/uL (0.0-0.2) Segmented Neutrophils % 55 % (35-66) Band Neutrophils % 24 % (0-9) Lymphocytes % 10 % (24-48) Monocytes % 10 % (0-10) Myelocytes % 1 % (0-0) Platelet Estimate Adequate (ADEQUATE) Phosphorus Level 3.2 mg/dL (2.6-4.7) Magnesium Level 1.8 mg/dL (1.8-2.4) Lipase 9902 U/L (73-393) Medications Current Medications Morphine Sulfate (Morphine Sulfate) 4 mg PRN Q15MIN PRN IV/SQ PAIN GREATER THAN 3/10 Last administered on 06/11/19at 04:58; Start 06/11/19 at 04:30; Stop 06/11/19 at 16:47; Status DC Sodium Chloride 1,000 ml @ 1,000 mls/hr Q1H IV Last administered on 06/11/19at 04:34; Start 06/11/19 at 04:30; Stop 06/11/19 at 05:29; Status DC Ondansetron HCl (Zofran) 4 mg 1X ONCE IV Last administered on 06/11/19at 04:33; Start 06/11/19 at 04:30; Stop 06/11/19 at 04:33; Status DC Iohexol (Omnipaque 350 Mg/ml) 100 ml 1X ONCE IV Last administered on 06/11/19at 05:01; Start 06/11/19 at 04:45; Stop 06/11/19 at 04:46; Status DC Info (CONTRAST GIVEN -- Rx MONITORING) 1 each PRN DAILY PRN MC SEE COMMENTS; Start 06/11/19 at 04:45; Stop 06/13/19 at 04:44; Status DC Fentanyl Citrate (Fentanyl 2ml Vial) 100 mcg STK-MED ONCE .ROUTE ; Start 06/11/19 at 04:42; Stop 06/11/19 at 04:42; Status DC Fentanyl Citrate (Fentanyl 2ml Vial) 50 mcg 1X ONCE IVP Last administered on 06/11/19at 04:45; Start 06/11/19 at 05:00; Stop 06/11/19 at 05:01; Status DC Ondansetron HCl (Zofran) 4 mg PRN Q8HRS PRN IV NAUSEA/VOMITING Last administered on 06/12/19at 03:29; Start 06/11/19 at 05:45; Stop 06/12/19 at 05:44; Status DC Morphine Sulfate (Morphine Sulfate) 4 mg PRN Q2HR PRN IV PAIN Last administered on 06/11/19at 07:37; Start 06/11/19 at 05:45; Stop 06/11/19 at 11:54; Status DC Sodium Chloride 1,000 ml @ 150 mls/hr Q6H40M IV Last administered on 06/12/19at 03:28; Start 06/11/19 at 05:45; Stop 06/12/19 at 11:01; Status DC Hydromorphone HCl (Dilaudid) 0.5 mg PRN Q3HRS PRN IV PAIN Last administered on 06/11/19at 08:38; Start 06/11/19 at 05:45; Stop 06/11/19 at 09:12; Status DC Potassium Chloride/Water 100 ml @ 100 mls/hr Q1H IV Last administered on 06/11/19at 08:41; Start 06/11/19 at 06:00; Stop 06/11/19 at 07:59; Status DC Hydromorphone HCl (Dilaudid) 1 mg PRN Q3HRS PRN IV PAIN Last administered on 06/11/19at 09:29; Start 06/11/19 at 09:15; Stop 06/11/19 at 11:54; Status DC Prochlorperazine Edisylate (Compazine) 10 mg PRN Q8HRS PRN IV NAUSEA/VOMITING Last administered on 06/12/19at 14:59; Start 06/11/19 at 12:00 Hydromorphone HCl (Dilaudid) 1 mg PRN Q2HRS PRN IV PAIN Last administered on 06/13/19at 05:34; Start 06/11/19 at 12:00 Pantoprazole Sodium (PROTONIX VIAL for IV PUSH) 40 mg DAILYAC IVP Last administered on 06/12/19at 08:29; Start 06/11/19 at 15:00; Stop 06/12/19 at 16:23; Status DC Lorazepam (Ativan Inj) 1 mg PRN Q6HRS PRN IVP ANXIETY / AGITATION Last administered on 06/13/19at 08:44; Start 06/11/19 at 18:15 Hydralazine HCl (Apresoline Inj) 10 mg PRN Q6HRS PRN IVP ELEVATED BP, SEE COMMENTS Last administered on 06/11/19at 18:22; Start 06/11/19 at 18:15 Nystatin (Nystop) 1 devorah PRN QID PRN TP FUNGAL RASH Last administered on 06/11/19at 23:19; Start 06/11/19 at 23:15 Sodium Chloride 1,000 ml @ 1,000 mls/hr 1X ONCE IV Last administered on 06/12/19at 05:27; Start 06/12/19 at 06:00; Stop 06/12/19 at 06:59; Status DC Sodium Chloride 1,000 ml @ 1,000 mls/hr 1X ONCE IV Last administered on 06/12/19at 05:25; Start 06/12/19 at 05:00; Stop 06/12/19 at 05:59; Status DC Sodium Chloride 1,000 ml @ 200 mls/hr Q5H IV Last administered on 06/12/19at 06:36; Start 06/12/19 at 07:00; Stop 06/12/19 at 11:01; Status DC Sodium Bicarbonate 50 meq/Sodium Chloride 1,050 ml @ 150 mls/hr Q7H IV Last administered on 06/13/19at 04:16; Start 06/12/19 at 11:00 Amino Acids/ Glycerin/ Electrolytes 1,000 ml @ 80 mls/hr [id number] IV ; Start at 10:00; Status UNV Amino Acids/ Electrolytes/ Dextrose 1,000 ml @ 80 mls/hr [id number] IV ; Start 06/12/19 at 10:15 Piperacillin Sod/ Tazobactam Sod (Zosyn Per Pharmacy) 1 each PRN DAILY PRN MC SEE COMMENTS; Start 06/12/19 at 13:15; Stop 06/12/19 at 19:16; Status DC Piperacillin Sod/ Tazobactam Sod 2.25 gm/Sodium Chloride 50 ml @ 100 mls/hr Q6HRS IV Last administered on 06/12/19at 13:48; Start 06/12/19 at 13:30; Stop 06/12/19 at 19:15; Status DC Sodium Bicarbonate (Sodium Bicarb Adult 8.4% Syr) 50 meq 1X ONCE IV Last administered on 06/12/19at 16:12; Start 06/12/19 at 16:00; Stop 06/12/19 at 16:01; Status DC Calcium Gluconate 1000 mg/Sodium Chloride 110 ml @ 220 mls/hr 1X ONCE IV Last administered on 06/12/19at 16:13; Start 06/12/19 at 16:00; Stop 06/12/19 at 16:29; Status DC Dextrose (Dextrose 50%-Water Syringe) 25 gm 1X ONCE IV Last administered on 06/12/19at 16:13; Start 06/12/19 at 16:00; Stop 06/12/19 at 16:01; Status DC Insulin Human Regular (HumuLIN R VIAL) 10 unit 1X ONCE IV Last administered on 06/12/19at 16:14; Start 06/12/19 at 16:00; Stop 06/12/19 at 16:01; Status DC Furosemide (Lasix) 40 mg 1X ONCE IVP Last administered on 06/12/19at 16:13; Start 06/12/19 at 16:00; Stop 06/12/19 at 16:01; Status DC Pantoprazole Sodium (PROTONIX VIAL for IV PUSH) 40 mg [id number] IVP Last administered on 06/13/19at 06:21; Start 06/12/19 at 18:00 Meropenem 500 mg/ Sodium Chloride 50 ml @ 100 mls/hr Q12HR IV Last administered on 06/13/19at 10:03; Start 06/12/19 at 21:00 Calcium Gluconate 1000 mg/Sodium Chloride 110 ml @ 220 mls/hr 1X ONCE IV Last administered on 06/12/19at 20:35; Start 06/12/19 at 19:15; Stop 06/12/19 at 19 :44; Status DC Lidocaine HCl (Buffered Lidocaine 1%) 3 ml STK-MED ONCE .ROUTE ; Start 06/13/19 at 08:47; Stop 06/13/19 at 08:47; Status DC Lidocaine HCl (Buffered Lidocaine 1%) 6 ml 1X ONCE INJ Last administered on 06/13/19at 09:23; Start 06/13/19 at 09:30; Stop 06/13/19 at 09:31; Status DC Active Scripts Active Vitals/I & O Vital Sign - Last 24 Hours 06/12/19 06/12/19 06/12/19 06/12/19 11:00 12:00 12:00 12:00 Temp 98.3 98.3 Pulse 118 114 Resp B/P (MAP) 134/82 (99) 121/89 (100) Pulse Ox 95 95 96 O2 Delivery Nasal Cannula Nasal Cannula Nasal Cannula Nasal Cannula O2 Flow Rate 3.0 3.0 3.0 3.0 06/12/19 06/12/19 06/12/19 06/12/19 12:10 12:30 12:40 13:00 Pulse 124 Resp 24 B/P (MAP) 133/88 (103) Pulse Ox 97 95 95 96 O2 Delivery Nasal Cannula Nasal Cannula Nasal Cannula Nasal Cannula O2 Flow Rate 3.0 3.0 3.0 3.0 06/12/19 06/12/19 06/12/19 06/12/19 14:00 14:58 15:00 15:28 Pulse 113 119 Resp 19 B/P (MAP) 139/78 (98) 103/84 (90) Pulse Ox 96 96 96 95 O2 Delivery Nasal Cannula Nasal Cannula Nasal Cannula Nasal Cannula O2 Flow Rate 3.0 3.0 3.0 3.0 2/2706/12/19 06/12/19 06/12/19 16:00 16:00 17:00 18:00 Temp 97.0 97.0 Pulse 116 124 122 Resp 22 B/P (MAP) 121/72 (88) 118/92 (101) 140/88 (105) Pulse Ox 96 94 95 O2 Delivery Nasal Cannula Nasal Cannula Nasal Cannula Nasal Cannula O2 Flow Rate 3.0 3.0 3.0 3.0 06/12/19 06/12/19 06/12/19 06/12/19 19:00 20:00 20:00 20:34 Temp 97.7 97.7 Pulse 122 126 Resp 32 B/P (MAP) 140/90 (107) 143/78 (99) Pulse Ox 96 96 96 O2 Delivery Nasal Cannula Nasal Cannula Nasal Cannula Nasal Cannula O2 Flow Rate 3.0 3.0 3.0 3.0 06/12/19 06/12/19 06/12/19 06/12/19 21:00 21:00 22:00 23:00 Pulse 120 118 122 Resp 24 B/P (MAP) 134/81 (98) 160/100 (120) 161/89 (113) Pulse Ox 98 98 97 96 O2 Delivery Nasal Cannula Nasal Cannula Nasal Cannula Nasal Cannula O2 Flow Rate 3.0 3.0 3.0 3.0 06/12/19 06/12/19 06/12/19 06/12/19 23:14 23:15 23:40 23:59 Pulse 122 Resp 38 20 B/P (MAP) 138/96 (110) Pulse Ox 96 96 96 O2 Delivery Nasal Cannula Nasal Cannula Nasal Cannula Nasal Cannula O2 Flow Rate 3.0 3.0 3.0 3.0 06/12/19 06/13/19 06/13/19 06/13/19 23:59 01:00 01:36 02:00 Temp 98.6 98.6 Pulse 122 122 118 Resp 20 20 20 20 B/P (MAP) 120/76 (91) 137/89 (105) 160/110 (127) Pulse Ox 96 95 97 97 O2 Delivery Nasal Cannula Nasal Cannula Nasal Cannula Nasal Cannula O2 Flow Rate 3.0 3.0 3.0 3.0 06/13/19 06/13/19 06/13/19 06/13/19 02:05 02:15 03:00 04:00 Temp 98.2 98.2 Pulse 118 121 122 Resp 20 24 B/P (MAP) 112/69 (83) 120/61 (80) 97/72 (80) Pulse Ox 96 99 100 97 O2 Delivery Nasal Cannula Nasal Cannula Nasal Cannula Nasal Cannula O2 Flow Rate 3.0 3.0 3.0 3.0 06/13/19 06/13/19 06/13/19 06/13/19 04:00 05:00 05:34 06:00 Pulse 119 Resp B/P (MAP) 118/85 (96) Pulse Ox 99 96 94 O2 Delivery Nasal Cannula Nasal Cannula Nasal Cannula Nasal Cannula O2 Flow Rate 3.0 3.0 3.0 3.0 06/13/19 06/13/19 06:00 07:00 Pulse 122 118 Resp B/P (MAP) 127/72 (90) 140/84 (102) Pulse Ox 94 94 O2 Delivery Nasal Cannula Nasal Cannula O2 Flow Rate 3.0 3.0 Intake and Output 06/12/19 06/12/19 06/13/19 15:00 23:00 07:00 Intake Total 950 ml 1320 ml 1232 ml Output Total 175 ml 780 ml 400 ml Balance 775 ml 540 ml 832 ml JERSON AVILES MD Jun 13, 2019 10:28
--- NOTE | 2019-06-13 11:07 | PDOC ---
SUBJECTIVE ROS Asked to See for FABIOLA/ ? ATN with elyte ABN Pt is noted to be restless and subj SOB CVS: ? Orthopnea, no CP RESP: + SOB, no SNEED (not ambulated) GI: no Nausea, no Vomiting- NGT in place : no Dysuria, no Urgency OBJECTIVE Vital Signs Vital Signs Date Time Temp Pulse Resp B/P (MAP) Pulse Ox O2 Delivery O2 Flow Rate FiO2 06/13/19 08:00 Nasal Cannula 3.0 06/13/19 07:00 118 24 140/84 (102) 94 06/13/19 04:00 98.2 98.2 I & 0 Intake and Output 06/13/19 07:00 Intake Total 3502 ml Output Total 1355 ml Balance 2147 ml Intake Oral 0 ml IV Total 3502 ml Output Urine Total 1355 ml PHYSICAL EXAM Physical Exam General Appearance: partially Awake, not fully Alert Oriented x 1-2 In mild-mod Distress Eyes: VIsion Unchanged Conjunctiva Normal EN: No EN Drainage Mucous Memb. dry - NGT^ in place Neck: no JVD no JVP Supple no Thyromegaly CVS: S1 S2 no Murmur No Gallop No Rub no Edema - tachy Resp: few basal Rales no Rhonchi min Acc. Muscle use GI: NO BSe NO Bruit + Tender + Distended : no CVA tenderness; no Suprapubic Tenderness SKIN: no visible Rashes Breast Exam deferred Mu.Sk: Adequate ROM no Muscle Atrophy Heme: Unable to palpate Obvious LAD no palp Splenomegaly NEURO: Good Strength and Tone, unable to assess, no asterixis, AMS due to pain meds Psych: unable to assess DIAGNOSIS/ASSESSMENT Assessment & Plan ARF/ ATN : CTA/ Pancreatitis etc (Non-oliguric) Dialysis as below F 180 NR 3.5 Hrs 2 K 3.5 Ca 140 Na 40 HC03 Qb 350 + Qd 500+ Heparin 0 Units Uf 0 Kgs or to dry weight as tolerated May give 25-50 gms of 25% Albumin if needed to maintain Hemodynamic stability Treatment plan reviewed and discussed with meat soaker HyperKalemia - may improve with correcting FSBS. HD later today Sev HypoCalcemia - due to Pancreatitis - attempt to correct with HD Abd Distention : ? Abd Compartment synd. Will hold off on further IVF. Check Bladder pressures. Await GS input. Ac. Pancreatitis - NGT in place. SUspect significant 3rd spaced/ sequestration of fluids in GUT. Defer to GI. Hold off of PPN for now. ^ed FSBS: Insulin gtt if needed Subj SOB: Await ABG. Pulm consult requested Signs of fluid overload on CXR: Hold off of IVF for now. Discussed Plan of Care with family (/ daughter) at bedside halle WRT starting HD CCT > 30 min co-ordinating care COMMENT/RELEVANT DATA Meds Current Medications Medications (Trade) Dose Ordered Sig/Jesse Start Time Stop Time Status Last Admin Dose Admin Amino Acids/ Electrolytes/ Dextrose 1,000 ml @ 80 mls/hr [id number] 06/12/19 10:15 Amino Acids/ Glycerin/ Electrolytes 1,000 ml @ 80 mls/hr [id number] 06/12/19 10:00 UNV Calcium Gluconate 1000 mg/Sodium Chloride 110 ml @ 220 mls/hr 1X ONCE 06/12/19 19:15 06/12/19 19:44 DC 06/12/19 20:35 220 MLS/HR Dextrose (Dextrose 50%-Water Syringe) 25 gm 1X ONCE 06/12/19 16:00 06/12/19 16:01 DC 06/12/19 16:13 25 GM Fentanyl Citrate (Fentanyl 2ml Vial) 50 mcg 1X ONCE 06/11/19 05:00 06/11/19 05:01 DC 06/11/19 04:45 50 MCG Furosemide (Lasix) 40 mg 1X ONCE 06/12/19 16:00 06/12/19 16:01 DC 06/12/19 16:13 40 MG Hydralazine HCl (Apresoline Inj) 10 mg PRN Q6HRS PRN 06/11/19 18:15 06/11/19 18:22 10 MG Hydromorphone HCl (Dilaudid) 1 mg PRN Q2HRS PRN 06/11/19 12:00 06/13/19 05:34 1 MG Info (CONTRAST GIVEN -- Rx MONITORING) 1 each PRN DAILY PRN 06/11/19 04:45 06/13/19 04:44 DC Insulin Human Regular (HumuLIN R VIAL) 10 unit 1X ONCE 06/12/19 16:00 06/12/19 16:01 DC 06/12/19 16:14 10 UNIT Iohexol (Omnipaque 350 Mg/ml) 100 ml 1X ONCE 06/11/19 04:45 06/11/19 04:46 DC 06/11/19 05:01 100 ML Lidocaine HCl (Buffered Lidocaine 1%) 6 ml 1X ONCE 06/13/19 09:30 06/13/19 09:31 DC 06/13/19 09:23 6 ML Lorazepam (Ativan Inj) 1 mg PRN Q6HRS PRN 06/11/19 18:15 06/13/19 08:44 1 MG Meropenem 500 mg/ Sodium Chloride 50 ml @ 100 mls/hr Q12HR 06/12/19 21:00 06/13/19 10:03 100 MLS/HR Morphine Sulfate (Morphine Sulfate) 4 mg PRN Q2HR PRN 06/11/19 05:45 06/11/19 11:54 DC 06/11/19 07:37 4 MG Nystatin (Nystop) 1 devorah PRN QID PRN 06/11/19 23:15 06/11/19 23:19 1 DEVORAH Ondansetron HCl (Zofran) 4 mg PRN Q8HRS PRN 06/11/19 05:45 06/12/19 05:44 DC 06/12/19 03:29 4 MG Pantoprazole Sodium (PROTONIX VIAL for IV PUSH) 40 mg [id number] 06/12/19 18:00 06/13/19 06:21 40 MG Piperacillin Sod/ Tazobactam Sod (Zosyn Per Pharmacy) 1 each PRN DAILY PRN 06/12/19 13:15 06/12/19 19:16 DC Piperacillin Sod/ Tazobactam Sod 2.25 gm/Sodium Chloride 50 ml @ 100 mls/hr Q6HRS 06/12/19 13:30 06/12/19 19:15 DC 06/12/19 13:48 100 MLS/HR Potassium Chloride/Water 100 ml @ 100 mls/hr Q1H 06/11/19 06:00 06/11/19 07:59 DC 06/11/19 08:41 100 MLS/HR Prochlorperazine Edisylate (Compazine) 10 mg PRN Q8HRS PRN 06/11/19 12:00 06/12/19 14:59 10 MG Sodium Bicarbonate 50 meq/Sodium Chloride 1,050 ml @ 150 mls/hr Q7H 06/12/19 11:00 06/13/19 04:16 150 MLS/HR Sodium Bicarbonate (Sodium Bicarb Adult 8.4% Syr) 50 meq 1X ONCE 06/12/19 16:00 06/12/19 16:01 DC 06/12/19 16:12 50 MEQ Sodium Chloride 1,000 ml @ 200 mls/hr Q5H 06/12/19 07:00 06/12/19 11:01 DC 06/12/19 06:36 200 MLS/HR Lab Laboratory Tests Test 06/12/19 13:55 06/12/19 17:30 06/13/19 05:15 Potassium Level 6.8 mmol/L (3.5-5.1) 4.7 mmol/L (3.5-5.1) 6.9 mmol/L (3.5-5.1) Lactic Acid Level 5.1 mmol/L (0.4-2.0) 5.5 mmol/L (0.4-2.0) Ionized Calcium 0.70 mmol/L (1.13-1.32) Sodium Level 142 mmol/L (136-145) 136 mmol/L (136-145) Chloride Level 104 mmol/L (98-107) 102 mmol/L (98-107) Carbon Dioxide Level 24 mmol/L (21-32) 24 mmol/L (21-32) Anion Gap 14 (6-14) 10 (6-14) Blood Urea Nitrogen 56 mg/dL (8-26) 68 mg/dL (8-26) Creatinine 4.2 mg/dL (0.7-1.3) 4.9 mg/dL (0.7-1.3) Estimated GFR (Cockcroft-Gault) 18.3 15.4 Glucose Level 385 mg/dL (70-99) 440 mg/dL (70-99) Calcium Level 5.9 mg/dL (8.5-10.1) 5.1 mg/dL (8.5-10.1) White Blood Count 11.9 x10^3/uL (4.0-11.0) Red Blood Count 5.05 x10^6/uL (4.30-5.70) Hemoglobin 14.6 g/dL (13.0-17.5) Hematocrit 45.1 % (39.0-53.0) Mean Corpuscular Volume 89 fL (79-100) Mean Corpuscular Hemoglobin 29 pg (25-35) Mean Corpuscular Hemoglobin Concent 32 g/dL (31-37) Red Cell Distribution Width 14.4 % (11.5-14.5) Platelet Count 163 x10^3/uL (140-400) Neutrophils (%) (Auto) 87 % (31-73) Lymphocytes (%) (Auto) 4 % (24-48) Monocytes (%) (Auto) 10 % (0-9) Eosinophils (%) (Auto) 0 % (0-3) Basophils (%) (Auto) 0 % (0-3) Neutrophils # (Auto) 10.4 x10^3/uL (1.8-7.7) Lymphocytes # (Auto) 0.4 x10^3/uL (1.0-4.8) Monocytes # (Auto) 1.1 x10^3/uL (0.0-1.1) Eosinophils # (Auto) 0.0 x10^3/uL (0.0-0.7) Basophils # (Auto) 0.0 x10^3/uL (0.0-0.2) Segmented Neutrophils % 55 % (35-66) Band Neutrophils % 24 % (0-9) Lymphocytes % 10 % (24-48) Monocytes % 10 % (0-10) Myelocytes % 1 % (0-0) Platelet Estimate Adequate (ADEQUATE) Phosphorus Level 3.2 mg/dL (2.6-4.7) Magnesium Level 1.8 mg/dL (1.8-2.4) Lipase 9902 U/L (73-393) Results All relevant outside records, renal labs, imaging studies, telemetry/EKG's were reviewed. Other CXR: Impression: 1. There is right internal jugular dialysis catheter with tip in the region of right atrium, no definitive pneumothorax identified by radiograph. 2. There are left greater right pleural effusions and bibasilar airspace opacity greater on the left. YOGI GOODMAN MD Jun 13, 2019 11:07
[2019-06-13] MEDS ORDERED: DEXTROSE 50% 25 GM / 50ML DISP.SYRIN. IV PRN (11:15)
[2019-06-13] MEDS: AA 4.25 %/CALCIUM/LYTES/D5W 1,000 ML IV SCH ×2 (11:15→23:45)
--- NOTE | 2019-06-13 11:46 | NUR ---
Order received from Dr. Hi Garcia to obtain Trialysis catheter, start dialysis, start ABD pressure monitoring. CXR, ABG obtained. Dr. Walton consulted, Dialysis to start at 1300. Patient's family aware of procedure, consent obtained by Ada ONEILL. 16 Fr maria placed, patient tolerated well. Patient's family at bedside, Dilaudid given IVP.
[2019-06-13 12:08] LABS: BASE EXCESS ABG -7 mmol/L (-3-3); FIO2 ABG 32% NC; HCO3 ABG 18 mmol/L (21-28); PCO2 ABG 38 mmHg (35-46); PO2 ABG 77 mmHg (75-108); SAT O2 ABG 95 % (92-99)
[2019-06-13] MEDS: INSULIN LISPRO 300 UNITS/3 ML VIAL. SQ SCH ×2 (12:14→17:00)
--- NOTE | 2019-06-13 12:35 | PDOC ---
Subjective: Subjective: Asking nurse how he's going to pee. Objective: Vital Signs: Vital Signs Date Time Temp Pulse Resp B/P (MAP) Pulse Ox O2 Delivery O2 Flow Rate FiO2 06/13/19 12:00 Nasal Cannula 3.0 06/13/19 11:36 16 97 06/13/19 07:00 118 140/84 (102) 06/13/19 04:00 98.2 98.2 Labs: Laboratory Tests Test 06/12/19 13:55 06/12/19 17:30 06/13/19 05:15 06/13/19 11:45 Potassium Level 6.8 mmol/L 4.7 mmol/L 6.9 mmol/L Lactic Acid Level 5.1 mmol/L 5.5 mmol/L Ionized Calcium 0.70 mmol/L Sodium Level 142 mmol/L 136 mmol/L Chloride Level 104 mmol/L 102 mmol/L Carbon Dioxide Level 24 mmol/L 24 mmol/L Anion Gap 14 10 Blood Urea Nitrogen 56 mg/dL 68 mg/dL Creatinine 4.2 mg/dL 4.9 mg/dL Estimated GFR (Cockcroft-Gault) 18.3 15.4 Glucose Level 385 mg/dL 440 mg/dL Calcium Level 5.9 mg/dL 5.1 mg/dL White Blood Count 11.9 x10^3/uL Red Blood Count 5.05 x10^6/uL Hemoglobin 14.6 g/dL Hematocrit 45.1 % Mean Corpuscular Volume 89 fL Mean Corpuscular Hemoglobin 29 pg Mean Corpuscular Hemoglobin Concent 32 g/dL Red Cell Distribution Width 14.4 % Platelet Count 163 x10^3/uL Neutrophils (%) (Auto) 87 % Lymphocytes (%) (Auto) 4 % Monocytes (%) (Auto) 10 % Eosinophils (%) (Auto) 0 % Basophils (%) (Auto) 0 % Neutrophils # (Auto) 10.4 x10^3/uL Lymphocytes # (Auto) 0.4 x10^3/uL Monocytes # (Auto) 1.1 x10^3/uL Eosinophils # (Auto) 0.0 x10^3/uL Basophils # (Auto) 0.0 x10^3/uL Segmented Neutrophils % 55 % Band Neutrophils % 24 % Lymphocytes % 10 % Monocytes % 10 % Myelocytes % 1 % Platelet Estimate Adequate Phosphorus Level 3.2 mg/dL Magnesium Level 1.8 mg/dL Lipase 9902 U/L O2 Saturation 95 % Arterial Blood pH 7.30 Arterial Blood pCO2 at Patient Temp 38 mmHg Arterial Blood pO2 at Patient Temp 77 mmHg Arterial Blood HCO3 18 mmol/L Arterial Blood Base Excess -7 mmol/L FiO2 32% nc Test 06/13/19 11:59 Glucose (Fingerstick) 453 mg/dL Imaging: CXR 06/13 Impression: 1. There is right internal jugular dialysis catheter with tip in the region of right atrium, no definitive pneumothorax identified by radiograph. 2. There are left greater right pleural effusions and bibasilar airspace opacity greater on the left. KUB Impression: 1. Enteric catheter is in the region of stomach. PE: GEN: ill, family and nurse present HEENT: NG, minimal bilious output LUNGS: clear anteriorly HEART: tachycardic ABD: a few gurgles, distended, tender NEURO/PSYCH: confused A/P: Gallstone pancreatitis - complicated w/ FABIOLA, hyperkalemia, hypocalcemia -- NG, [place], and dailysis cath placed. To have dialysis this afternoon. Will follow. Hemodynamically unstable?: Yes Is patient in severe pain?: Yes Is NPO status required?: Yes PAXTON ALEXANDER Jun 13, 2019 12:35
--- NOTE | 2019-06-13 12:55 | CONS ---
DATE OF CONSULTATION: 06/13/2019 ATTENDING PHYSICIAN: Dr. Quiñonez. REASON FOR CONSULTATION: The patient is seen in pulmonary consultation at the request of Dr. Polk for hypoxemia and respiratory distress. HISTORY OF PRESENT ILLNESS: The patient is a 49-year-old male, who presented with severe epigastric pain beginning in the morning of admission. No previous episode associated with nausea and vomiting. He did have some improvement since admission. The patient was ultimately diagnosed with gallstone pancreatitis. Over the last 24-48 hours, he has become more short of air, more lethargic. Chest x-ray was reviewed. There is increased bilateral atelectasis and pleural effusion. He also has a hemodialysis catheter that was placed. His white count is elevated. Hemoglobin and hematocrit were noted. Yesterday, arterial blood gas revealed a pH of 7.30, PaCO2 of 31, PaO2 of 75, bicarb was 15. His electrolytes were noted. BUN and creatinine elevated, potassium level was elevated. The patient is being seen by Infectious Disease Service and is currently being treated with Zosyn. He was likewise seen by Renal Service and started on dialysis. Multiple family members are at the bedside. The patient has smoked some mainly cigars. He has had no major issues with COPD or asthma. He does not have recurrent acute bronchitis. PAST MEDICAL HISTORY: Otherwise remarkable for gastroesophageal reflux disease. PAST SURGICAL HISTORY: None. FAMILY HISTORY: No family history of pancreatitis. SOCIAL HISTORY: He does smoke cigars. Occasional use of alcohol. REVIEW OF SYSTEMS: Unobtainable secondary to the patient's condition. PHYSICAL EXAMINATION: VITAL SIGNS: Stable. O2 saturation was greater than 92%, currently on 3 liters. HEENT: Eyes, the sclerae were nonicteric. NECK: Jugular venous distention was not elevated. No lymphadenopathy. CHEST: Full expansion. LUNGS: Diminished breath sounds in the bases. No wheezes. CARDIOVASCULAR: Regular rate and rhythm with S1, S2, no S3. ABDOMEN: Distended, tender diffusely. EXTREMITIES: No clubbing, cyanosis or edema. NEUROLOGICAL: The patient was slightly encephalopathic, but following commands. LABORATORY DATA: Reviewed as indicated above. White count was elevated. Hemoglobin and hematocrit were noted. BUN and creatinine elevated. Potassium was elevated. Calcium level was low. Lactic acid level was elevated. Lipase level was 9000, came in at 82,000. RADIOLOGICAL DATA: Chest x-ray as indicated above. IMPRESSION: 1. Acute hypoxemic respiratory failure, multifactorial. 2. Acute gallstone pancreatitis. 3. Acute kidney failure. 4. Metabolic toxic encephalopathy. 5. Hyperkalemia. 6. Metabolic acidosis. 7. Hypocalcemia. PLAN: 1. Continue support with IV antibiotics. 2. Oxygen supplementation, p.r.n. BiPAP, I informed the family at the bedside that he may certainly deteriorate to ARDS requiring mechanical ventilation and prolonged mechanical support. 3. Follow Nephrology input, on hemodialysis. 4. Empiric antibiotics. 5. Continue supportive care, currently no plans for surgical intervention at this time. I do appreciate the privilege in sharing in the patient's care. DESTINI MATOS MD DR: ESTEFANIA/justyn JOB#: [id number] / [id number]
[2019-06-13] MEDS ORDERED: IV NORMAL SALINE 1000ML BAG 1,000 ML IV PRN ×2 (14:00)
[2019-06-13] MEDS ORDERED: INSULIN REGULAR VIAL 100 UNIT in IV NORMAL SALINE 100ML 100 ML IV PRN (14:15)
--- NOTE | 2019-06-13 14:25 | PDOC ---
PULMONARY PROGRESS NOTES Vitals Vital Signs Date Time Temp Pulse Resp B/P (MAP) Pulse Ox O2 Delivery O2 Flow Rate FiO2 06/13/19 12:00 Nasal Cannula 3.0 06/13/19 11:36 16 97 06/13/19 07:00 118 140/84 (102) 06/13/19 04:00 98.2 98.2 Lungs: Clear Labs Laboratory Tests Test 06/12/19 02:54 06/12/19 03:32 06/12/19 08:20 06/12/19 13:55 O2 Saturation 94 % (92-99) Arterial Blood pH 7.30 (7.35-7.45) Arterial Blood pCO2 at Patient Temp 31 mmHg (35-46) Arterial Blood pO2 at Patient Temp 75 mmHg (75-108) Arterial Blood HCO3 15 mmol/L (21-28) Arterial Blood Base Excess -10 mmol/L (-3-3) FiO2 21 White Blood Count 14.4 x10^3/uL (4.0-11.0) Red Blood Count 5.80 x10^6/uL (4.30-5.70) Hemoglobin 16.9 g/dL (13.0-17.5) Hematocrit 51.4 % (39.0-53.0) Mean Corpuscular Volume 89 fL (79-100) Mean Corpuscular Hemoglobin 29 pg (25-35) Mean Corpuscular Hemoglobin Concent 33 g/dL (31-37) Red Cell Distribution Width 14.0 % (11.5-14.5) Platelet Count 193 x10^3/uL (140-400) Sodium Level 140 mmol/L (136-145) 141 mmol/L (136-145) Potassium Level 6.1 mmol/L (3.5-5.1) 6.6 mmol/L (3.5-5.1) 6.8 mmol/L (3.5-5.1) Chloride Level 104 mmol/L (98-107) 107 mmol/L (98-107) Carbon Dioxide Level 18 mmol/L (21-32) 17 mmol/L (21-32) Anion Gap 18 (6-14) 17 (6-14) Blood Urea Nitrogen 38 mg/dL (8-26) 43 mg/dL (8-26) Creatinine 3.5 mg/dL (0.7-1.3) 3.3 mg/dL (0.7-1.3) Estimated GFR (Cockcroft-Gault) 22.6 24.2 BUN/Creatinine Ratio 11 (6-20) 13 (6-20) Glucose Level 297 mg/dL (70-99) 335 mg/dL (70-99) Calcium Level 6.8 mg/dL (8.5-10.1) 6.0 mg/dL (8.5-10.1) Total Bilirubin 3.9 mg/dL (0.2-1.0) 3.4 mg/dL (0.2-1.0) Aspartate Amino Transf (AST/SGOT) 185 U/L (15-37) 163 U/L (15-37) Alanine Aminotransferase (ALT/SGPT) 288 U/L (16-63) 213 U/L (16-63) Alkaline Phosphatase 99 U/L (46-116) 86 U/L (46-116) Total Protein 6.8 g/dL (6.4-8.2) 6.4 g/dL (6.4-8.2) Albumin 3.8 g/dL (3.4-5.0) 3.2 g/dL (3.4-5.0) Albumin/Globulin Ratio 1.3 (1.0-1.7) 1.0 (1.0-1.7) Lipase 8263 U/L (73-393) Lactic Acid Level 5.1 mmol/L (0.4-2.0) Ionized Calcium 0.70 mmol/L (1.13-1.32) Test 06/12/19 17:30 06/13/19 05:15 06/13/19 11:45 06/13/19 11:59 Sodium Level 142 mmol/L (136-145) 136 mmol/L (136-145) Potassium Level 4.7 mmol/L (3.5-5.1) 6.9 mmol/L (3.5-5.1) Chloride Level 104 mmol/L (98-107) 102 mmol/L (98-107) Carbon Dioxide Level 24 mmol/L (21-32) 24 mmol/L (21-32) Anion Gap 14 (6-14) 10 (6-14) Blood Urea Nitrogen 56 mg/dL (8-26) 68 mg/dL (8-26) Creatinine 4.2 mg/dL (0.7-1.3) 4.9 mg/dL (0.7-1.3) Estimated GFR (Cockcroft-Gault) 18.3 15.4 Glucose Level 385 mg/dL (70-99) 440 mg/dL (70-99) Lactic Acid Level 5.5 mmol/L (0.4-2.0) Calcium Level 5.9 mg/dL (8.5-10.1) 5.1 mg/dL (8.5-10.1) White Blood Count 11.9 x10^3/uL (4.0-11.0) Red Blood Count 5.05 x10^6/uL (4.30-5.70) Hemoglobin 14.6 g/dL (13.0-17.5) Hematocrit 45.1 % (39.0-53.0) Mean Corpuscular Volume 89 fL (79-100) Mean Corpuscular Hemoglobin 29 pg (25-35) Mean Corpuscular Hemoglobin Concent 32 g/dL (31-37) Red Cell Distribution Width 14.4 % (11.5-14.5) Platelet Count 163 x10^3/uL (140-400) Neutrophils (%) (Auto) 87 % (31-73) Lymphocytes (%) (Auto) 4 % (24-48) Monocytes (%) (Auto) 10 % (0-9) Eosinophils (%) (Auto) 0 % (0-3) Basophils (%) (Auto) 0 % (0-3) Neutrophils # (Auto) 10.4 x10^3/uL (1.8-7.7) Lymphocytes # (Auto) 0.4 x10^3/uL (1.0-4.8) Monocytes # (Auto) 1.1 x10^3/uL (0.0-1.1) Eosinophils # (Auto) 0.0 x10^3/uL (0.0-0.7) Basophils # (Auto) 0.0 x10^3/uL (0.0-0.2) Segmented Neutrophils % 55 % (35-66) Band Neutrophils % 24 % (0-9) Lymphocytes % 10 % (24-48) Monocytes % 10 % (0-10) Myelocytes % 1 % (0-0) Platelet Estimate Adequate (ADEQUATE) Phosphorus Level 3.2 mg/dL (2.6-4.7) Magnesium Level 1.8 mg/dL (1.8-2.4) Lipase 9902 U/L (73-393) O2 Saturation 95 % (92-99) Arterial Blood pH 7.30 (7.35-7.45) Arterial Blood pCO2 at Patient Temp 38 mmHg (35-46) Arterial Blood pO2 at Patient Temp 77 mmHg (75-108) Arterial Blood HCO3 18 mmol/L (21-28) Arterial Blood Base Excess -7 mmol/L (-3-3) FiO2 32% nc Glucose (Fingerstick) 453 mg/dL (70-99) Test 06/13/19 14:12 Glucose (Fingerstick) 408 mg/dL (70-99) Laboratory Tests Test 06/12/19 17:30 06/13/19 05:15 06/13/19 11:45 06/13/19 11:59 Sodium Level 142 mmol/L (136-145) 136 mmol/L (136-145) Potassium Level 4.7 mmol/L (3.5-5.1) 6.9 mmol/L (3.5-5.1) Chloride Level 104 mmol/L (98-107) 102 mmol/L (98-107) Carbon Dioxide Level 24 mmol/L (21-32) 24 mmol/L (21-32) Anion Gap 14 (6-14) 10 (6-14) Blood Urea Nitrogen 56 mg/dL (8-26) 68 mg/dL (8-26) Creatinine 4.2 mg/dL (0.7-1.3) 4.9 mg/dL (0.7-1.3) Estimated GFR (Cockcroft-Gault) 18.3 15.4 Glucose Level 385 mg/dL (70-99) 440 mg/dL (70-99) Lactic Acid Level 5.5 mmol/L (0.4-2.0) Calcium Level 5.9 mg/dL (8.5-10.1) 5.1 mg/dL (8.5-10.1) White Blood Count 11.9 x10^3/uL (4.0-11.0) Red Blood Count 5.05 x10^6/uL (4.30-5.70) Hemoglobin 14.6 g/dL (13.0-17.5) Hematocrit 45.1 % (39.0-53.0) Mean Corpuscular Volume 89 fL (79-100) Mean Corpuscular Hemoglobin 29 pg (25-35) Mean Corpuscular Hemoglobin Concent 32 g/dL (31-37) Red Cell Distribution Width 14.4 % (11.5-14.5) Platelet Count 163 x10^3/uL (140-400) Neutrophils (%) (Auto) 87 % (31-73) Lymphocytes (%) (Auto) 4 % (24-48) Monocytes (%) (Auto) 10 % (0-9) Eosinophils (%) (Auto) 0 % (0-3) Basophils (%) (Auto) 0 % (0-3) Neutrophils # (Auto) 10.4 x10^3/uL (1.8-7.7) Lymphocytes # (Auto) 0.4 x10^3/uL (1.0-4.8) Monocytes # (Auto) 1.1 x10^3/uL (0.0-1.1) Eosinophils # (Auto) 0.0 x10^3/uL (0.0-0.7) Basophils # (Auto) 0.0 x10^3/uL (0.0-0.2) Segmented Neutrophils % 55 % (35-66) Band Neutrophils % 24 % (0-9) Lymphocytes % 10 % (24-48) Monocytes % 10 % (0-10) Myelocytes % 1 % (0-0) Platelet Estimate Adequate (ADEQUATE) Phosphorus Level 3.2 mg/dL (2.6-4.7) Magnesium Level 1.8 mg/dL (1.8-2.4) Lipase 9902 U/L (73-393) O2 Saturation 95 % (92-99) Arterial Blood pH 7.30 (7.35-7.45) Arterial Blood pCO2 at Patient Temp 38 mmHg (35-46) Arterial Blood pO2 at Patient Temp 77 mmHg (75-108) Arterial Blood HCO3 18 mmol/L (21-28) Arterial Blood Base Excess -7 mmol/L (-3-3) FiO2 32% nc Glucose (Fingerstick) 453 mg/dL (70-99) Test 06/13/19 14:12 Glucose (Fingerstick) 408 mg/dL (70-99) Medications Active Scripts Medications Dose Route/Sig Max Daily Dose Days Date Category Impression . NOTE DICTATED SPOKE WITH FAMILY THANKS RESP FAILURE SEC TO SEPSIS AND PANCREATITIS DESTINI MATOS MD Jun 13, 2019 14:25
--- NOTE | 2019-06-13 14:26 | NUR ---
SS following up with discharge planning. Pt starting dialysis and may need outpatient dialysis set up at discharge. SS will continue to follow for discharge planning.
[2019-06-13] MEDS ORDERED: DIALYSIS PATIENT. MC PRN ×2 (14:45)
[2019-06-13 15:12] LABS: CALCIUM PTH 5.9 mg/dL (8.7-10.2); PHOSPHORUS PTH 3.7 mg/dL (2.8-4.1); PTH INTACT 58 pg/mL (15-65)
--- NOTE | 2019-06-13 17:08 | RAD ---
Procedure: Central line placement at the bedside Clinical Indication: Adult male requiring central venous access Sedation: Local anesthesia only Antibiotics: None Fluoro Time: Not applicable Contrast: None Sterility: All elements of maximal sterile barrier technique including the use of a cap, mask, sterile gown, sterile gloves, large sterile sheet, appropriate hand hygiene, and 2% chlorhexidine for cutaneous antisepsis (or acceptable alternative antiseptic per current guidelines) were followed for this procedure. Consent: The procedure was explained in its entirety to the patient or the patients designated pharmaceutical specialty representative by a member of the treatment team, including a discussion of the risks, benefits and commonly accepted alternatives to the procedure, as well as the expected consequences of no therapy whatsoever. Discussion of the risks included, but was not limited to, those that are most frequent and those that are rare but possibly severe or life-threatening, as well as the possibility of unforeseen complications. Technique and Findings: Following informed consent, the patient was prepped and draped in the usual sterile fashion. Ultrasound interrogation of the right neck revealed patency and compressibility of the right internal jugular vein. A hardcopy ultrasound image was recorded. A 21-gauge micropuncture needle was used to gain access to this vein after local anesthesia was achieved with 1% Lidocaine. The needle was exchanged over the wire for a small dilator followed by a triple lumen central line. All 3 lumens flushed and aspirated with ease. The catheter was sutured to the skin and a chest x-ray was obtained to assess for line position. Complications: None Impression: 1. Central venous catheter placement as described.
[2019-06-13] MEDS ORDERED: ATROPINE 0.5 MG/5 ML DISP.SYRINGE. IV PRN (19:00)
[2019-06-13] MEDS ORDERED: IV NORMAL SALINE 500ML BAG 500 ML IV PRN (19:00)
[2019-06-13 19:50] LABS: HEMATOCRIT 40.3 % (39.0-53.0); HEMOGLOBIN 13.5 g/dL (13.0-17.5); RED BLOOD COUNT 4.57 x10^6/uL (4.30-5.70); RED CELL DISTRIBUTION WIDTH 13.9 % (11.5-14.5); WHITE BLOOD COUNT 11.9 x10^3/uL (4.0-11.0)
[2019-06-13] MEDS: DEXMEDETOMIDINE 400 MCG in IV NORMAL SALINE 100ML 96 ML IV PRN ×2 (19:55→23:32)
[2019-06-13 20:03] LABS: ALBUMIN 2.7 g/dL (3.4-5.0); ALBUMIN/GLOBULIN RATIO 0.8 (1.0-1.7); CALCIUM 6.2 mg/dL (8.5-10.1); CREATININE 3.6 mg/dL (0.7-1.3); GFR 21.9; MAGNESIUM 1.7 mg/dL (1.8-2.4); POTASSIUM 4.2 mmol/L (3.5-5.1); TOTAL BILIRUBIN 3.7 mg/dL (0.2-1.0); TOTAL PROTEIN 6.2 g/dL (6.4-8.2)
[2019-06-14] VITALS (25 sets, daily range): BP systolic 82–122; BP diastolic 51–73
[2019-06-14] MEDS: HYDROmorphone 2 MG/ML VIAL IV PRN ×3 (01:29→13:00)
[2019-06-14] MEDS: DEXMEDETOMIDINE 400 MCG in IV NORMAL SALINE 100ML 96 ML IV PRN ×3 (05:17→21:55)
--- NOTE | 2019-06-14 05:36 | RAD ---
Single view abdomen dated 06/14/2019. Comparison made to 06/13/2019. Clinical data indication: NG placement. FINDINGS: Single upright portable exam performed. There is an NG tube with tip coiled at the level of the gastric fundus/cardia. Bowel gas pattern is nonobstructive. No pneumoperitoneum. IMPRESSION: NG tube coiled at the gastric fundus/cardia. Electronically signed by: Tab Razo MD (06/14/2019 5:34 AM) [id number]
[2019-06-14] MEDS: PANTOPRAZOLE IV PUSH 40 MG VIAL. IVP SCH ×2 (05:44→18:05)
[2019-06-14 06:22] LABS: ALBUMIN 2.5 g/dL (3.4-5.0); ALBUMIN/GLOBULIN RATIO 0.7 (1.0-1.7); ALK PHOS 63 U/L (46-116); ALT (SGPT) 93 U/L (16-63); ANION GAP 10 (6-14); AST (SGOT) 133 U/L (15-37); BLOOD UREA NITROGEN 61 mg/dL (8-26); BUN/CREATININE RATIO 16 (6-20); CARBON DIOXIDE 26 mmol/L (21-32); CHLORIDE 103 mmol/L (98-107); CREATININE 3.9 mg/dL (0.7-1.3); GLUCOSE 156 mg/dL (70-99); POTASSIUM 4.8 mmol/L (3.5-5.1); SODIUM 139 mmol/L (136-145); TOTAL BILIRUBIN 3.3 mg/dL (0.2-1.0); TOTAL PROTEIN 5.9 g/dL (6.4-8.2)
[2019-06-14 06:46] LABS: CALCIUM < 5.0 mg/dL (8.5-10.1)
[2019-06-14 07:44] LABS: BASO % 0 % (0-3); EOS % 0 % (0-3); HEMATOCRIT 40.7 % (39.0-53.0); HEMOGLOBIN 13.4 g/dL (13.0-17.5); LYMPH % 8 % (24-48); MEAN CORPUSCULAR HEMOGLOBIN 29 pg (25-35); MEAN CORPUSCULAR HGB CONC 33 g/dL (31-37); MEAN CORPUSCULAR VOLUME 89 fL (79-100); MONO # 1.2 x10^3/uL (0.0-1.1); MONO % 9 % (0-9); NEUT # 10.6 x10^3/uL (1.8-7.7); NEUT % 83 % (31-73); PLATELET COUNT 112 x10^3/uL (140-400); RED BLOOD COUNT 4.58 x10^6/uL (4.30-5.70); RED CELL DISTRIBUTION WIDTH 14.3 % (11.5-14.5); WHITE BLOOD COUNT 12.8 x10^3/uL (4.0-11.0)
[2019-06-14] MEDS: MEROPENEM 500 MG in IV NORMAL SALINE 50ML 50 ML IV SCH ×2 (07:45→20:37)
--- NOTE | 2019-06-14 07:48 | PDOC ---
PULMONARY PROGRESS NOTES Subjective CONFUSED COUGH PULLED OUT NG TUBE Vitals Vital Signs Date Time Temp Pulse Resp B/P (MAP) Pulse Ox O2 Delivery O2 Flow Rate FiO2 06/14/19 07:00 104 27 115/61 (79) Nasal Cannula 3.0 06/14/19 06:00 94 06/14/19 05:00 99.1 99.1 General: Confused Lungs: Clear, Crackles Cardiovascular: S1, S2 Abdomen: Other (TENDER AND DISTENDED) Extremities: Other Skin: Warm Labs Laboratory Tests Test 06/12/19 08:20 06/12/19 13:55 06/12/19 17:30 06/13/19 05:15 Sodium Level 141 mmol/L (136-145) 142 mmol/L (136-145) 136 mmol/L (136-145) Potassium Level 6.6 mmol/L (3.5-5.1) 6.8 mmol/L (3.5-5.1) 4.7 mmol/L (3.5-5.1) 6.9 mmol/L (3.5-5.1) Chloride Level 107 mmol/L (98-107) 104 mmol/L (98-107) 102 mmol/L (98-107) Carbon Dioxide Level 17 mmol/L (21-32) 24 mmol/L (21-32) 24 mmol/L (21-32) Anion Gap 17 (6-14) 14 (6-14) 10 (6-14) Blood Urea Nitrogen 43 mg/dL (8-26) 56 mg/dL (8-26) 68 mg/dL (8-26) Creatinine 3.3 mg/dL (0.7-1.3) 4.2 mg/dL (0.7-1.3) 4.9 mg/dL (0.7-1.3) Estimated GFR (Cockcroft-Gault) 24.2 18.3 15.4 BUN/Creatinine Ratio 13 (6-20) Glucose Level 335 mg/dL (70-99) 385 mg/dL (70-99) 440 mg/dL (70-99) Calcium Level 6.0 mg/dL (8.5-10.1) 5.9 mg/dL (8.5-10.1) 5.1 mg/dL (8.5-10.1) Total Bilirubin 3.4 mg/dL (0.2-1.0) Aspartate Amino Transf (AST/SGOT) 163 U/L (15-37) Alanine Aminotransferase (ALT/SGPT) 213 U/L (16-63) Alkaline Phosphatase 86 U/L (46-116) Total Protein 6.4 g/dL (6.4-8.2) Albumin 3.2 g/dL (3.4-5.0) Albumin/Globulin Ratio 1.0 (1.0-1.7) Estimated GFR (Non- 21 (>59) Lactic Acid Level 5.1 mmol/L (0.4-2.0) 5.5 mmol/L (0.4-2.0) Ionized Calcium 0.70 mmol/L (1.13-1.32) EGFR 24 (>59) PTH (Intact) Specimen Description Comment (.) Parathyroid Hormone (Intact) 58 pg/mL (15-65) Calcium (PTH Intact) 5.9 mg/dL (8.7-10.2) Creatinine (PTH Intact) 3.30 mg/dL (0.76-1.27) Phosphorus (PTH Intact) 3.7 mg/dL (2.8-4.1) White Blood Count 11.9 x10^3/uL (4.0-11.0) Red Blood Count 5.05 x10^6/uL (4.30-5.70) Hemoglobin 14.6 g/dL (13.0-17.5) Hematocrit 45.1 % (39.0-53.0) Mean Corpuscular Volume 89 fL (79-100) Mean Corpuscular Hemoglobin 29 pg (25-35) Mean Corpuscular Hemoglobin Concent 32 g/dL (31-37) Red Cell Distribution Width 14.4 % (11.5-14.5) Platelet Count 163 x10^3/uL (140-400) Neutrophils (%) (Auto) 87 % (31-73) Lymphocytes (%) (Auto) 4 % (24-48) Monocytes (%) (Auto) 10 % (0-9) Eosinophils (%) (Auto) 0 % (0-3) Basophils (%) (Auto) 0 % (0-3) Neutrophils # (Auto) 10.4 x10^3/uL (1.8-7.7) Lymphocytes # (Auto) 0.4 x10^3/uL (1.0-4.8) Monocytes # (Auto) 1.1 x10^3/uL (0.0-1.1) Eosinophils # (Auto) 0.0 x10^3/uL (0.0-0.7) Basophils # (Auto) 0.0 x10^3/uL (0.0-0.2) Segmented Neutrophils % 55 % (35-66) Band Neutrophils % 24 % (0-9) Lymphocytes % 10 % (24-48) Monocytes % 10 % (0-10) Myelocytes % 1 % (0-0) Platelet Estimate Adequate (ADEQUATE) Phosphorus Level 3.2 mg/dL (2.6-4.7) Magnesium Level 1.8 mg/dL (1.8-2.4) Lipase 9902 U/L (73-393) Hepatitis B Surface Antigen Nonreactive (Nonreactive) Hepatitis B Surface Antibody Reactive Hepatitis B Core Total Antibody Nonreactive (Nonreactive) Test 06/13/19 11:45 06/13/19 11:59 06/13/19 14:12 06/13/19 16:00 O2 Saturation 95 % (92-99) Arterial Blood pH 7.30 (7.35-7.45) Arterial Blood pCO2 at Patient Temp 38 mmHg (35-46) Arterial Blood pO2 at Patient Temp 77 mmHg (75-108) Arterial Blood HCO3 18 mmol/L (21-28) Arterial Blood Base Excess -7 mmol/L (-3-3) FiO2 32% nc Glucose (Fingerstick) 453 mg/dL (70-99) 408 mg/dL (70-99) 206 mg/dL (70-99) Test 06/13/19 17:11 06/13/19 18:13 06/13/19 19:40 06/13/19 19:51 Glucose (Fingerstick) 153 mg/dL (70-99) 150 mg/dL (70-99) 142 mg/dL (70-99) White Blood Count 11.9 x10^3/uL (4.0-11.0) Red Blood Count 4.57 x10^6/uL (4.30-5.70) Hemoglobin 13.5 g/dL (13.0-17.5) Hematocrit 40.3 % (39.0-53.0) Mean Corpuscular Volume 88 fL (79-100) Mean Corpuscular Hemoglobin 29 pg (25-35) Mean Corpuscular Hemoglobin Concent 33 g/dL (31-37) Red Cell Distribution Width 13.9 % (11.5-14.5) Platelet Count 104 x10^3/uL (140-400) Sodium Level 139 mmol/L (136-145) Potassium Level 4.2 mmol/L (3.5-5.1) Chloride Level 102 mmol/L (98-107) Carbon Dioxide Level 29 mmol/L (21-32) Anion Gap 8 (6-14) Blood Urea Nitrogen 50 mg/dL (8-26) Creatinine 3.6 mg/dL (0.7-1.3) Estimated GFR (Cockcroft-Gault) 21.9 BUN/Creatinine Ratio 14 (6-20) Glucose Level 137 mg/dL (70-99) Calcium Level 6.2 mg/dL (8.5-10.1) Magnesium Level 1.7 mg/dL (1.8-2.4) Total Bilirubin 3.7 mg/dL (0.2-1.0) Aspartate Amino Transf (AST/SGOT) 160 U/L (15-37) Alanine Aminotransferase (ALT/SGPT) 111 U/L (16-63) Alkaline Phosphatase 72 U/L (46-116) Total Protein 6.2 g/dL (6.4-8.2) Albumin 2.7 g/dL (3.4-5.0) Albumin/Globulin Ratio 0.8 (1.0-1.7) Test 06/13/19 20:54 06/13/19 22:06 06/13/19 23:11 06/14/19 00:14 Glucose (Fingerstick) 137 mg/dL (70-99) 141 mg/dL (70-99) 128 mg/dL (70-99) 145 mg/dL (70-99) Test 06/14/19 01:19 06/14/19 02:28 06/14/19 03:31 06/14/19 04:37 Glucose (Fingerstick) 150 mg/dL (70-99) 148 mg/dL (70-99) 149 mg/dL (70-99) 137 mg/dL (70-99) Test 06/14/19 05:25 Sodium Level 139 mmol/L (136-145) Potassium Level 4.8 mmol/L (3.5-5.1) Chloride Level 103 mmol/L (98-107) Carbon Dioxide Level 26 mmol/L (21-32) Anion Gap 10 (6-14) Blood Urea Nitrogen 61 mg/dL (8-26) Creatinine 3.9 mg/dL (0.7-1.3) Estimated GFR (Cockcroft-Gault) 20.0 BUN/Creatinine Ratio 16 (6-20) Glucose Level 156 mg/dL (70-99) Calcium Level < 5.0 mg/dL (8.5-10.1) Total Bilirubin 3.3 mg/dL (0.2-1.0) Aspartate Amino Transf (AST/SGOT) 133 U/L (15-37) Alanine Aminotransferase (ALT/SGPT) 93 U/L (16-63) Alkaline Phosphatase 63 U/L (46-116) Total Protein 5.9 g/dL (6.4-8.2) Albumin 2.5 g/dL (3.4-5.0) Albumin/Globulin Ratio 0.7 (1.0-1.7) Laboratory Tests Test 06/13/19 11:45 06/13/19 11:59 06/13/19 14:12 06/13/19 16:00 O2 Saturation 95 % (92-99) Arterial Blood pH 7.30 (7.35-7.45) Arterial Blood pCO2 at Patient Temp 38 mmHg (35-46) Arterial Blood pO2 at Patient Temp 77 mmHg (75-108) Arterial Blood HCO3 18 mmol/L (21-28) Arterial Blood Base Excess -7 mmol/L (-3-3) FiO2 32% nc Glucose (Fingerstick) 453 mg/dL (70-99) 408 mg/dL (70-99) 206 mg/dL (70-99) Test 06/13/19 17:11 06/13/19 18:13 06/13/19 19:40 06/13/19 19:51 Glucose (Fingerstick) 153 mg/dL (70-99) 150 mg/dL (70-99) 142 mg/dL (70-99) White Blood Count 11.9 x10^3/uL (4.0-11.0) Red Blood Count 4.57 x10^6/uL (4.30-5.70) Hemoglobin 13.5 g/dL (13.0-17.5) Hematocrit 40.3 % (39.0-53.0) Mean Corpuscular Volume 88 fL (79-100) Mean Corpuscular Hemoglobin 29 pg (25-35) Mean Corpuscular Hemoglobin Concent 33 g/dL (31-37) Red Cell Distribution Width 13.9 % (11.5-14.5) Platelet Count 104 x10^3/uL (140-400) Sodium Level 139 mmol/L (136-145) Potassium Level 4.2 mmol/L (3.5-5.1) Chloride Level 102 mmol/L (98-107) Carbon Dioxide Level 29 mmol/L (21-32) Anion Gap 8 (6-14) Blood Urea Nitrogen 50 mg/dL (8-26) Creatinine 3.6 mg/dL (0.7-1.3) Estimated GFR (Cockcroft-Gault) 21.9 BUN/Creatinine Ratio 14 (6-20) Glucose Level 137 mg/dL (70-99) Calcium Level 6.2 mg/dL (8.5-10.1) Magnesium Level 1.7 mg/dL (1.8-2.4) Total Bilirubin 3.7 mg/dL (0.2-1.0) Aspartate Amino Transf (AST/SGOT) 160 U/L (15-37) Alanine Aminotransferase (ALT/SGPT) 111 U/L (16-63) Alkaline Phosphatase 72 U/L (46-116) Total Protein 6.2 g/dL (6.4-8.2) Albumin 2.7 g/dL (3.4-5.0) Albumin/Globulin Ratio 0.8 (1.0-1.7) Test 06/13/19 20:54 06/13/19 22:06 06/13/19 23:11 06/14/19 00:14 Glucose (Fingerstick) 137 mg/dL (70-99) 141 mg/dL (70-99) 128 mg/dL (70-99) 145 mg/dL (70-99) Test 06/14/19 01:19 06/14/19 02:28 06/14/19 03:31 06/14/19 04:37 Glucose (Fingerstick) 150 mg/dL (70-99) 148 mg/dL (70-99) 149 mg/dL (70-99) 137 mg/dL (70-99) Test 06/14/19 05:25 Sodium Level 139 mmol/L (136-145) Potassium Level 4.8 mmol/L (3.5-5.1) Chloride Level 103 mmol/L (98-107) Carbon Dioxide Level 26 mmol/L (21-32) Anion Gap 10 (6-14) Blood Urea Nitrogen 61 mg/dL (8-26) Creatinine 3.9 mg/dL (0.7-1.3) Estimated GFR (Cockcroft-Gault) 20.0 BUN/Creatinine Ratio 16 (6-20) Glucose Level 156 mg/dL (70-99) Calcium Level < 5.0 mg/dL (8.5-10.1) Total Bilirubin 3.3 mg/dL (0.2-1.0) Aspartate Amino Transf (AST/SGOT) 133 U/L (15-37) Alanine Aminotransferase (ALT/SGPT) 93 U/L (16-63) Alkaline Phosphatase 63 U/L (46-116) Total Protein 5.9 g/dL (6.4-8.2) Albumin 2.5 g/dL (3.4-5.0) Albumin/Globulin Ratio 0.7 (1.0-1.7) Medications Active Scripts Medications Dose Route/Sig Max Daily Dose Days Date Category Impression . IMPRESSION: 1. Acute hypoxemic respiratory failure, multifactorial. 2. Acute gallstone pancreatitis. 3. Acute kidney failure. 4. Metabolic toxic encephalopathy. 5. Hyperkalemia. 6. Metabolic acidosis. 7. Hypocalcemia. Plan . PT THIS AM PULLED OUT NG TUBE CONFUSED WILL NEED PRECEDEX SEE BELOW REPLACE CA WITH HD FOLLOW NEPHRO INPUT 06/13 1. Continue support with IV antibiotics. 2. Oxygen supplementation, p.r.n. BiPAP, I informed the family at the bedside that he may certainly deteriorate to ARDS requiring mechanical ventilation and prolonged mechanical support. 3. Follow Nephrology input, on hemodialysis. 4. Empiric antibiotics. 5. Continue supportive care, currently no plans for surgical intervention at this time. DESTINI MATOS MD Jun 14, 2019 07:48
[2019-06-14] MEDS: INSULIN LISPRO 300 UNITS/3 ML VIAL. SQ SCH ×3 (08:00→17:00)
[2019-06-14] MEDS ORDERED: IV NORMAL SALINE 1000ML BAG 1,000 ML IV PRN ×2 (08:55)
[2019-06-14] MEDS ORDERED: DIALYSIS PATIENT. MC PRN ×2 (09:00)
[2019-06-14] MEDS ORDERED: ALBUMIN HUMAN 25% 200 ML IV PRN (09:00)
--- NOTE | 2019-06-14 09:15 | PDOC ---
Infectious Disease Note Subjective Subjective Confused and agitated per nursing No fevers last 24 hours O2 2L ROS ROS unobtainable Vital Sign Vital Signs Vital Signs Date Time Temp Pulse Resp B/P (MAP) Pulse Ox O2 Delivery O2 Flow Rate FiO2 06/14/19 07:44 27 Nasal Cannula 3.0 06/14/19 07:00 104 115/61 (79) 06/14/19 06:00 94 06/14/19 05:00 99.1 99.1 Physical Exam PHYSICAL EXAM GENERAL: Propped up in bed, resting quietly, calm, mittens in place HEENT: NGT NECK: Supple LUNGS: Diminished aeration bases HEART: S1, S2, regular, no murmurs. ABDOMEN: Distended, tight, no guarding to light palpation : [place] EXTREMITIES: trace edema, no cyanosis. SKIN: Warm, dry. 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 AMPOULE EXAMINER: Sedated RIJ/HD catheter (06/13) clean Labs Lab Laboratory Tests Test 06/13/19 11:45 06/13/19 11:59 06/13/19 14:12 06/13/19 16:00 O2 Saturation 95 % (92-99) Arterial Blood pH 7.30 (7.35-7.45) Arterial Blood pCO2 at Patient Temp 38 mmHg (35-46) Arterial Blood pO2 at Patient Temp 77 mmHg (75-108) Arterial Blood HCO3 18 mmol/L (21-28) Arterial Blood Base Excess -7 mmol/L (-3-3) FiO2 32% nc Glucose (Fingerstick) 453 mg/dL (70-99) 408 mg/dL (70-99) 206 mg/dL (70-99) Test 06/13/19 17:11 06/13/19 18:13 06/13/19 19:40 06/13/19 19:51 Glucose (Fingerstick) 153 mg/dL (70-99) 150 mg/dL (70-99) 142 mg/dL (70-99) White Blood Count 11.9 x10^3/uL (4.0-11.0) Red Blood Count 4.57 x10^6/uL (4.30-5.70) Hemoglobin 13.5 g/dL (13.0-17.5) Hematocrit 40.3 % (39.0-53.0) Mean Corpuscular Volume 88 fL (79-100) Mean Corpuscular Hemoglobin 29 pg (25-35) Mean Corpuscular Hemoglobin Concent 33 g/dL (31-37) Red Cell Distribution Width 13.9 % (11.5-14.5) Platelet Count 104 x10^3/uL (140-400) Sodium Level 139 mmol/L (136-145) Potassium Level 4.2 mmol/L (3.5-5.1) Chloride Level 102 mmol/L (98-107) Carbon Dioxide Level 29 mmol/L (21-32) Anion Gap 8 (6-14) Blood Urea Nitrogen 50 mg/dL (8-26) Creatinine 3.6 mg/dL (0.7-1.3) Estimated GFR (Cockcroft-Gault) 21.9 BUN/Creatinine Ratio 14 (6-20) Glucose Level 137 mg/dL (70-99) Calcium Level 6.2 mg/dL (8.5-10.1) Magnesium Level 1.7 mg/dL (1.8-2.4) Total Bilirubin 3.7 mg/dL (0.2-1.0) Aspartate Amino Transf (AST/SGOT) 160 U/L (15-37) Alanine Aminotransferase (ALT/SGPT) 111 U/L (16-63) Alkaline Phosphatase 72 U/L (46-116) Total Protein 6.2 g/dL (6.4-8.2) Albumin 2.7 g/dL (3.4-5.0) Albumin/Globulin Ratio 0.8 (1.0-1.7) Test 06/13/19 20:54 06/13/19 22:06 06/13/19 23:11 06/14/19 00:14 Glucose (Fingerstick) 137 mg/dL (70-99) 141 mg/dL (70-99) 128 mg/dL (70-99) 145 mg/dL (70-99) Test 06/14/19 01:19 06/14/19 02:28 06/14/19 03:31 06/14/19 04:37 Glucose (Fingerstick) 150 mg/dL (70-99) 148 mg/dL (70-99) 149 mg/dL (70-99) 137 mg/dL (70-99) Test 06/14/19 05:25 White Blood Count 12.8 x10^3/uL (4.0-11.0) Red Blood Count 4.58 x10^6/uL (4.30-5.70) Hemoglobin 13.4 g/dL (13.0-17.5) Hematocrit 40.7 % (39.0-53.0) Mean Corpuscular Volume 89 fL (79-100) Mean Corpuscular Hemoglobin 29 pg (25-35) Mean Corpuscular Hemoglobin Concent 33 g/dL (31-37) Red Cell Distribution Width 14.3 % (11.5-14.5) Platelet Count 112 x10^3/uL (140-400) Neutrophils (%) (Auto) 83 % (31-73) Lymphocytes (%) (Auto) 8 % (24-48) Monocytes (%) (Auto) 9 % (0-9) Eosinophils (%) (Auto) 0 % (0-3) Basophils (%) (Auto) 0 % (0-3) Neutrophils # (Auto) 10.6 x10^3/uL (1.8-7.7) Lymphocytes # (Auto) 1.0 x10^3/uL (1.0-4.8) Monocytes # (Auto) 1.2 x10^3/uL (0.0-1.1) Eosinophils # (Auto) 0.0 x10^3/uL (0.0-0.7) Basophils # (Auto) 0.0 x10^3/uL (0.0-0.2) Sodium Level 139 mmol/L (136-145) Potassium Level 4.8 mmol/L (3.5-5.1) Chloride Level 103 mmol/L (98-107) Carbon Dioxide Level 26 mmol/L (21-32) Anion Gap 10 (6-14) Blood Urea Nitrogen 61 mg/dL (8-26) Creatinine 3.9 mg/dL (0.7-1.3) Estimated GFR (Cockcroft-Gault) 20.0 BUN/Creatinine Ratio 16 (6-20) Glucose Level 156 mg/dL (70-99) Calcium Level < 5.0 mg/dL (8.5-10.1) Total Bilirubin 3.3 mg/dL (0.2-1.0) Aspartate Amino Transf (AST/SGOT) 133 U/L (15-37) Alanine Aminotransferase (ALT/SGPT) 93 U/L (16-63) Alkaline Phosphatase 63 U/L (46-116) Total Protein 5.9 g/dL (6.4-8.2) Albumin 2.5 g/dL (3.4-5.0) Albumin/Globulin Ratio 0.7 (1.0-1.7) Micro Microbiology 06/12/19 Blood Culture - Preliminary, Resulted NO GROWTH AFTER 1 DAY Objective Assessment Sepsis from GI Gallbladder stone pancreatitis. Lactic acidosis. Leukocytosis. Acute kidney injury requiring dialysis Hyperkalemia and metabolic acidosis. Basilar atelectasis. Plan Plan of Care Continue empiric merrem, renal dosing Renal ,GI and General Surgery following. Plans are for randi this admission BC neg to date Maintain aspiration precaution. D/w nursing Critically ill Patient seen and examined. Labs, micro, and chart reviewed. 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
--- NOTE | 2019-06-14 09:21 | PDOC ---
PROGRESS NOTES History of Present Illness History of Present Illness ASSESSMENT AND PLAN: Acute hypoxemic respiratory failure, Severe pancreatitis. , GALLSTONE pancreatitis MORBID OBESITY ACUTE HYPOXIC RESP FAILURE// ARDS HYPERKALEMIA TRANSAMINITIS LACTIC ACIDOSIS SEPSIS VOLUME OVERLOAD HYPERGLYCEMIA, UNCONTROLLED admitted consult GI, IV fluids, p.r.n. antiemetics, home medications, deep venous thrombosis prophylaxis. Full code. nephrology consult gen surgery consult GI CONSULT O2 SUPPORT lactic acid with reflex iv zosyn per pharmacy ID CONSULT BLOOD CULT BICARB DRIP temp dialysis catheter PULM CONSULT INSULIN DRIP sedated on vent D/W RN PROGNOSIS: Guarded. 36 MIN CC TIME Vitals Vitals Vital Signs Date Time Temp Pulse Resp B/P (MAP) Pulse Ox O2 Delivery O2 Flow Rate FiO2 06/14/19 09:00 99 23 105/62 (76) 95 Nasal Cannula 3.0 06/14/19 08:00 98.1 98.1 Physical Exam Physical Exam GENERAL: SEDATED ON VENT HEENT: NGT NECK: Supple LUNGS: Diminished aeration bases HEART: S1, S2, regular, no murmurs. ABDOMEN: Distended, tight, no guarding to light palpation : [place] EXTREMITIES: trace edema, no cyanosis. SKIN: Warm, dry. 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 RIJ/HD catheter (06/13) clean General: Alert, moderate distress Heart: Regular rate, Normal S1 Lungs: Clear, Crackles Abdomen: Soft, Other (distention, mild TTP) Extremities: No clubbing, No cyanosis Skin: No breakdown Labs LABS Laboratory Tests Test 06/13/19 11:45 06/13/19 11:59 06/13/19 14:12 06/13/19 16:00 O2 Saturation 95 % (92-99) Arterial Blood pH 7.30 (7.35-7.45) Arterial Blood pCO2 at Patient Temp 38 mmHg (35-46) Arterial Blood pO2 at Patient Temp 77 mmHg (75-108) Arterial Blood HCO3 18 mmol/L (21-28) Arterial Blood Base Excess -7 mmol/L (-3-3) FiO2 32% nc Glucose (Fingerstick) 453 mg/dL (70-99) 408 mg/dL (70-99) 206 mg/dL (70-99) Test 06/13/19 17:11 06/13/19 18:13 06/13/19 19:40 06/13/19 19:51 Glucose (Fingerstick) 153 mg/dL (70-99) 150 mg/dL (70-99) 142 mg/dL (70-99) White Blood Count 11.9 x10^3/uL (4.0-11.0) Red Blood Count 4.57 x10^6/uL (4.30-5.70) Hemoglobin 13.5 g/dL (13.0-17.5) Hematocrit 40.3 % (39.0-53.0) Mean Corpuscular Volume 88 fL (79-100) Mean Corpuscular Hemoglobin 29 pg (25-35) Mean Corpuscular Hemoglobin Concent 33 g/dL (31-37) Red Cell Distribution Width 13.9 % (11.5-14.5) Platelet Count 104 x10^3/uL (140-400) Sodium Level 139 mmol/L (136-145) Potassium Level 4.2 mmol/L (3.5-5.1) Chloride Level 102 mmol/L (98-107) Carbon Dioxide Level 29 mmol/L (21-32) Anion Gap 8 (6-14) Blood Urea Nitrogen 50 mg/dL (8-26) Creatinine 3.6 mg/dL (0.7-1.3) Estimated GFR (Cockcroft-Gault) 21.9 BUN/Creatinine Ratio 14 (6-20) Glucose Level 137 mg/dL (70-99) Calcium Level 6.2 mg/dL (8.5-10.1) Magnesium Level 1.7 mg/dL (1.8-2.4) Total Bilirubin 3.7 mg/dL (0.2-1.0) Aspartate Amino Transf (AST/SGOT) 160 U/L (15-37) Alanine Aminotransferase (ALT/SGPT) 111 U/L (16-63) Alkaline Phosphatase 72 U/L (46-116) Total Protein 6.2 g/dL (6.4-8.2) Albumin 2.7 g/dL (3.4-5.0) Albumin/Globulin Ratio 0.8 (1.0-1.7) Test 06/13/19 20:54 06/13/19 22:06 06/13/19 23:11 06/14/19 00:14 Glucose (Fingerstick) 137 mg/dL (70-99) 141 mg/dL (70-99) 128 mg/dL (70-99) 145 mg/dL (70-99) Test 06/14/19 01:19 06/14/19 02:28 06/14/19 03:31 06/14/19 04:37 Glucose (Fingerstick) 150 mg/dL (70-99) 148 mg/dL (70-99) 149 mg/dL (70-99) 137 mg/dL (70-99) Test 06/14/19 05:25 White Blood Count 12.8 x10^3/uL (4.0-11.0) Red Blood Count 4.58 x10^6/uL (4.30-5.70) Hemoglobin 13.4 g/dL (13.0-17.5) Hematocrit 40.7 % (39.0-53.0) Mean Corpuscular Volume 89 fL (79-100) Mean Corpuscular Hemoglobin 29 pg (25-35) Mean Corpuscular Hemoglobin Concent 33 g/dL (31-37) Red Cell Distribution Width 14.3 % (11.5-14.5) Platelet Count 112 x10^3/uL (140-400) Neutrophils (%) (Auto) 83 % (31-73) Lymphocytes (%) (Auto) 8 % (24-48) Monocytes (%) (Auto) 9 % (0-9) Eosinophils (%) (Auto) 0 % (0-3) Basophils (%) (Auto) 0 % (0-3) Neutrophils # (Auto) 10.6 x10^3/uL (1.8-7.7) Lymphocytes # (Auto) 1.0 x10^3/uL (1.0-4.8) Monocytes # (Auto) 1.2 x10^3/uL (0.0-1.1) Eosinophils # (Auto) 0.0 x10^3/uL (0.0-0.7) Basophils # (Auto) 0.0 x10^3/uL (0.0-0.2) Sodium Level 139 mmol/L (136-145) Potassium Level 4.8 mmol/L (3.5-5.1) Chloride Level 103 mmol/L (98-107) Carbon Dioxide Level 26 mmol/L (21-32) Anion Gap 10 (6-14) Blood Urea Nitrogen 61 mg/dL (8-26) Creatinine 3.9 mg/dL (0.7-1.3) Estimated GFR (Cockcroft-Gault) 20.0 BUN/Creatinine Ratio 16 (6-20) Glucose Level 156 mg/dL (70-99) Calcium Level < 5.0 mg/dL (8.5-10.1) Total Bilirubin 3.3 mg/dL (0.2-1.0) Aspartate Amino Transf (AST/SGOT) 133 U/L (15-37) Alanine Aminotransferase (ALT/SGPT) 93 U/L (16-63) Alkaline Phosphatase 63 U/L (46-116) Total Protein 5.9 g/dL (6.4-8.2) Albumin 2.5 g/dL (3.4-5.0) Albumin/Globulin Ratio 0.7 (1.0-1.7) Assessment and Plan Assessmemt and Plan Problems Medical Problems: (1) Acute pancreatitis Status: Acute (2) Nausea & vomiting Status: Acute Comment Review of Relevant I have reviewed the following items alexandra (where applicable) has been applied. Labs Laboratory Tests Test 06/12/19 13:55 06/12/19 17:30 06/13/19 05:15 06/13/19 11:45 Potassium Level 6.8 mmol/L (3.5-5.1) 4.7 mmol/L (3.5-5.1) 6.9 mmol/L (3.5-5.1) Estimated GFR (Non- 21 (>59) Lactic Acid Level 5.1 mmol/L (0.4-2.0) 5.5 mmol/L (0.4-2.0) Ionized Calcium 0.70 mmol/L (1.13-1.32) EGFR 24 (>59) PTH (Intact) Specimen Description Comment (.) Parathyroid Hormone (Intact) 58 pg/mL (15-65) Calcium (PTH Intact) 5.9 mg/dL (8.7-10.2) Creatinine (PTH Intact) 3.30 mg/dL (0.76-1.27) Phosphorus (PTH Intact) 3.7 mg/dL (2.8-4.1) Sodium Level 142 mmol/L (136-145) 136 mmol/L (136-145) Chloride Level 104 mmol/L (98-107) 102 mmol/L (98-107) Carbon Dioxide Level 24 mmol/L (21-32) 24 mmol/L (21-32) Anion Gap 14 (6-14) 10 (6-14) Blood Urea Nitrogen 56 mg/dL (8-26) 68 mg/dL (8-26) Creatinine 4.2 mg/dL (0.7-1.3) 4.9 mg/dL (0.7-1.3) Estimated GFR (Cockcroft-Gault) 18.3 15.4 Glucose Level 385 mg/dL (70-99) 440 mg/dL (70-99) Calcium Level 5.9 mg/dL (8.5-10.1) 5.1 mg/dL (8.5-10.1) White Blood Count 11.9 x10^3/uL (4.0-11.0) Red Blood Count 5.05 x10^6/uL (4.30-5.70) Hemoglobin 14.6 g/dL (13.0-17.5) Hematocrit 45.1 % (39.0-53.0) Mean Corpuscular Volume 89 fL (79-100) Mean Corpuscular Hemoglobin 29 pg (25-35) Mean Corpuscular Hemoglobin Concent 32 g/dL (31-37) Red Cell Distribution Width 14.4 % (11.5-14.5) Platelet Count 163 x10^3/uL (140-400) Neutrophils (%) (Auto) 87 % (31-73) Lymphocytes (%) (Auto) 4 % (24-48) Monocytes (%) (Auto) 10 % (0-9) Eosinophils (%) (Auto) 0 % (0-3) Basophils (%) (Auto) 0 % (0-3) Neutrophils # (Auto) 10.4 x10^3/uL (1.8-7.7) Lymphocytes # (Auto) 0.4 x10^3/uL (1.0-4.8) Monocytes # (Auto) 1.1 x10^3/uL (0.0-1.1) Eosinophils # (Auto) 0.0 x10^3/uL (0.0-0.7) Basophils # (Auto) 0.0 x10^3/uL (0.0-0.2) Segmented Neutrophils % 55 % (35-66) Band Neutrophils % 24 % (0-9) Lymphocytes % 10 % (24-48) Monocytes % 10 % (0-10) Myelocytes % 1 % (0-0) Platelet Estimate Adequate (ADEQUATE) Phosphorus Level 3.2 mg/dL (2.6-4.7) Magnesium Level 1.8 mg/dL (1.8-2.4) Lipase 9902 U/L (73-393) Hepatitis B Surface Antigen Nonreactive (Nonreactive) Hepatitis B Surface Antibody Reactive Hepatitis B Core Total Antibody Nonreactive (Nonreactive) O2 Saturation 95 % (92-99) Arterial Blood pH 7.30 (7.35-7.45) Arterial Blood pCO2 at Patient Temp 38 mmHg (35-46) Arterial Blood pO2 at Patient Temp 77 mmHg (75-108) Arterial Blood HCO3 18 mmol/L (21-28) Arterial Blood Base Excess -7 mmol/L (-3-3) FiO2 32% nc Test 06/13/19 11:59 06/13/19 14:12 06/13/19 16:00 06/13/19 17:11 Glucose (Fingerstick) 453 mg/dL (70-99) 408 mg/dL (70-99) 206 mg/dL (70-99) 153 mg/dL (70-99) Test 06/13/19 18:13 06/13/19 19:40 06/13/19 19:51 06/13/19 20:54 Glucose (Fingerstick) 150 mg/dL (70-99) 142 mg/dL (70-99) 137 mg/dL (70-99) White Blood Count 11.9 x10^3/uL (4.0-11.0) Red Blood Count 4.57 x10^6/uL (4.30-5.70) Hemoglobin 13.5 g/dL (13.0-17.5) Hematocrit 40.3 % (39.0-53.0) Mean Corpuscular Volume 88 fL (79-100) Mean Corpuscular Hemoglobin 29 pg (25-35) Mean Corpuscular Hemoglobin Concent 33 g/dL (31-37) Red Cell Distribution Width 13.9 % (11.5-14.5) Platelet Count 104 x10^3/uL (140-400) Sodium Level 139 mmol/L (136-145) Potassium Level 4.2 mmol/L (3.5-5.1) Chloride Level 102 mmol/L (98-107) Carbon Dioxide Level 29 mmol/L (21-32) Anion Gap 8 (6-14) Blood Urea Nitrogen 50 mg/dL (8-26) Creatinine 3.6 mg/dL (0.7-1.3) Estimated GFR (Cockcroft-Gault) 21.9 BUN/Creatinine Ratio 14 (6-20) Glucose Level 137 mg/dL (70-99) Calcium Level 6.2 mg/dL (8.5-10.1) Magnesium Level 1.7 mg/dL (1.8-2.4) Total Bilirubin 3.7 mg/dL (0.2-1.0) Aspartate Amino Transf (AST/SGOT) 160 U/L (15-37) Alanine Aminotransferase (ALT/SGPT) 111 U/L (16-63) Alkaline Phosphatase 72 U/L (46-116) Total Protein 6.2 g/dL (6.4-8.2) Albumin 2.7 g/dL (3.4-5.0) Albumin/Globulin Ratio 0.8 (1.0-1.7) Test 06/13/19 22:06 06/13/19 23:11 06/14/19 00:14 06/14/19 01:19 Glucose (Fingerstick) 141 mg/dL (70-99) 128 mg/dL (70-99) 145 mg/dL (70-99) 150 mg/dL (70-99) Test 06/14/19 02:28 06/14/19 03:31 06/14/19 04:37 06/14/19 05:25 Glucose (Fingerstick) 148 mg/dL (70-99) 149 mg/dL (70-99) 137 mg/dL (70-99) White Blood Count 12.8 x10^3/uL (4.0-11.0) Red Blood Count 4.58 x10^6/uL (4.30-5.70) Hemoglobin 13.4 g/dL (13.0-17.5) Hematocrit 40.7 % (39.0-53.0) Mean Corpuscular Volume 89 fL (79-100) Mean Corpuscular Hemoglobin 29 pg (25-35) Mean Corpuscular Hemoglobin Concent 33 g/dL (31-37) Red Cell Distribution Width 14.3 % (11.5-14.5) Platelet Count 112 x10^3/uL (140-400) Neutrophils (%) (Auto) 83 % (31-73) Lymphocytes (%) (Auto) 8 % (24-48) Monocytes (%) (Auto) 9 % (0-9) Eosinophils (%) (Auto) 0 % (0-3) Basophils (%) (Auto) 0 % (0-3) Neutrophils # (Auto) 10.6 x10^3/uL (1.8-7.7) Lymphocytes # (Auto) 1.0 x10^3/uL (1.0-4.8) Monocytes # (Auto) 1.2 x10^3/uL (0.0-1.1) Eosinophils # (Auto) 0.0 x10^3/uL (0.0-0.7) Basophils # (Auto) 0.0 x10^3/uL (0.0-0.2) Sodium Level 139 mmol/L (136-145) Potassium Level 4.8 mmol/L (3.5-5.1) Chloride Level 103 mmol/L (98-107) Carbon Dioxide Level 26 mmol/L (21-32) Anion Gap 10 (6-14) Blood Urea Nitrogen 61 mg/dL (8-26) Creatinine 3.9 mg/dL (0.7-1.3) Estimated GFR (Cockcroft-Gault) 20.0 BUN/Creatinine Ratio 16 (6-20) Glucose Level 156 mg/dL (70-99) Calcium Level < 5.0 mg/dL (8.5-10.1) Total Bilirubin 3.3 mg/dL (0.2-1.0) Aspartate Amino Transf (AST/SGOT) 133 U/L (15-37) Alanine Aminotransferase (ALT/SGPT) 93 U/L (16-63) Alkaline Phosphatase 63 U/L (46-116) Total Protein 5.9 g/dL (6.4-8.2) Albumin 2.5 g/dL (3.4-5.0) Albumin/Globulin Ratio 0.7 (1.0-1.7) Laboratory Tests Test 2/28/20 11:45 06/13/19 11:59 06/13/19 14:12 06/13/19 16:00 O2 Saturation 95 % (92-99) Arterial Blood pH 7.30 (7.35-7.45) Arterial Blood pCO2 at Patient Temp 38 mmHg (35-46) Arterial Blood pO2 at Patient Temp 77 mmHg (75-108) Arterial Blood HCO3 18 mmol/L (21-28) Arterial Blood Base Excess -7 mmol/L (-3-3) FiO2 32% nc Glucose (Fingerstick) 453 mg/dL (70-99) 408 mg/dL (70-99) 206 mg/dL (70-99) Test 06/13/19 17:11 06/13/19 18:13 06/13/19 19:40 06/13/19 19:51 Glucose (Fingerstick) 153 mg/dL (70-99) 150 mg/dL (70-99) 142 mg/dL (70-99) White Blood Count 11.9 x10^3/uL (4.0-11.0) Red Blood Count 4.57 x10^6/uL (4.30-5.70) Hemoglobin 13.5 g/dL (13.0-17.5) Hematocrit 40.3 % (39.0-53.0) Mean Corpuscular Volume 88 fL (79-100) Mean Corpuscular Hemoglobin 29 pg (25-35) Mean Corpuscular Hemoglobin Concent 33 g/dL (31-37) Red Cell Distribution Width 13.9 % (11.5-14.5) Platelet Count 104 x10^3/uL (140-400) Sodium Level 139 mmol/L (136-145) Potassium Level 4.2 mmol/L (3.5-5.1) Chloride Level 102 mmol/L (98-107) Carbon Dioxide Level 29 mmol/L (21-32) Anion Gap 8 (6-14) Blood Urea Nitrogen 50 mg/dL (8-26) Creatinine 3.6 mg/dL (0.7-1.3) Estimated GFR (Cockcroft-Gault) 21.9 BUN/Creatinine Ratio 14 (6-20) Glucose Level 137 mg/dL (70-99) Calcium Level 6.2 mg/dL (8.5-10.1) Magnesium Level 1.7 mg/dL (1.8-2.4) Total Bilirubin 3.7 mg/dL (0.2-1.0) Aspartate Amino Transf (AST/SGOT) 160 U/L (15-37) Alanine Aminotransferase (ALT/SGPT) 111 U/L (16-63) Alkaline Phosphatase 72 U/L (46-116) Total Protein 6.2 g/dL (6.4-8.2) Albumin 2.7 g/dL (3.4-5.0) Albumin/Globulin Ratio 0.8 (1.0-1.7) Test 06/13/19 20:54 06/13/19 22:06 06/13/19 23:11 06/14/19 00:14 Glucose (Fingerstick) 137 mg/dL (70-99) 141 mg/dL (70-99) 128 mg/dL (70-99) 145 mg/dL (70-99) Test 06/14/19 01:19 06/14/19 02:28 06/14/19 03:31 06/14/19 04:37 Glucose (Fingerstick) 150 mg/dL (70-99) 148 mg/dL (70-99) 149 mg/dL (70-99) 137 mg/dL (70-99) Test 06/14/19 05:25 White Blood Count 12.8 x10^3/uL (4.0-11.0) Red Blood Count 4.58 x10^6/uL (4.30-5.70) Hemoglobin 13.4 g/dL (13.0-17.5) Hematocrit 40.7 % (39.0-53.0) Mean Corpuscular Volume 89 fL (79-100) Mean Corpuscular Hemoglobin 29 pg (25-35) Mean Corpuscular Hemoglobin Concent 33 g/dL (31-37) Red Cell Distribution Width 14.3 % (11.5-14.5) Platelet Count 112 x10^3/uL (140-400) Neutrophils (%) (Auto) 83 % (31-73) Lymphocytes (%) (Auto) 8 % (24-48) Monocytes (%) (Auto) 9 % (0-9) Eosinophils (%) (Auto) 0 % (0-3) Basophils (%) (Auto) 0 % (0-3) Neutrophils # (Auto) 10.6 x10^3/uL (1.8-7.7) Lymphocytes # (Auto) 1.0 x10^3/uL (1.0-4.8) Monocytes # (Auto) 1.2 x10^3/uL (0.0-1.1) Eosinophils # (Auto) 0.0 x10^3/uL (0.0-0.7) Basophils # (Auto) 0.0 x10^3/uL (0.0-0.2) Sodium Level 139 mmol/L (136-145) Potassium Level 4.8 mmol/L (3.5-5.1) Chloride Level 103 mmol/L (98-107) Carbon Dioxide Level 26 mmol/L (21-32) Anion Gap 10 (6-14) Blood Urea Nitrogen 61 mg/dL (8-26) Creatinine 3.9 mg/dL (0.7-1.3) Estimated GFR (Cockcroft-Gault) 20.0 BUN/Creatinine Ratio 16 (6-20) Glucose Level 156 mg/dL (70-99) Calcium Level < 5.0 mg/dL (8.5-10.1) Total Bilirubin 3.3 mg/dL (0.2-1.0) Aspartate Amino Transf (AST/SGOT) 133 U/L (15-37) Alanine Aminotransferase (ALT/SGPT) 93 U/L (16-63) Alkaline Phosphatase 63 U/L (46-116) Total Protein 5.9 g/dL (6.4-8.2) Albumin 2.5 g/dL (3.4-5.0) Albumin/Globulin Ratio 0.7 (1.0-1.7) Microbiology 06/12/19 Blood Culture - Preliminary, Resulted NO GROWTH AFTER 1 DAY Medications Current Medications Morphine Sulfate (Morphine Sulfate) 4 mg PRN Q15MIN PRN IV/SQ PAIN GREATER THAN 3/10 Last administered on 06/11/19at 04:58; Start 06/11/19 at 04:30; Stop 06/11/19 at 16:47; Status DC Sodium Chloride 1,000 ml @ 1,000 mls/hr Q1H IV Last administered on 06/11/19at 04:34; Start 06/11/19 at 04:30; Stop 06/11/19 at 05:29; Status DC Ondansetron HCl (Zofran) 4 mg 1X ONCE IV Last administered on 06/11/19at 04:33; Start 06/11/19 at 04:30; Stop 06/11/19 at 04:33; Status DC Iohexol (Omnipaque 350 Mg/ml) 100 ml 1X ONCE IV Last administered on 06/11/19at 05:01; Start 06/11/19 at 04:45; Stop 06/11/19 at 04:46; Status DC Info (CONTRAST GIVEN -- Rx MONITORING) 1 each PRN DAILY PRN MC SEE COMMENTS; Start 06/11/19 at 04:45; Stop 06/13/19 at 04:44; Status DC Fentanyl Citrate (Fentanyl 2ml Vial) 100 mcg STK-MED ONCE .ROUTE ; Start 06/11/19 at 04:42; Stop 06/11/19 at 04:42; Status DC Fentanyl Citrate (Fentanyl 2ml Vial) 50 mcg 1X ONCE IVP Last administered on 06/11/19at 04:45; Start 06/11/19 at 05:00; Stop 06/11/19 at 05:01; Status DC Ondansetron HCl (Zofran) 4 mg PRN Q8HRS PRN IV NAUSEA/VOMITING Last administered on 06/12/19at 03:29; Start 06/11/19 at 05:45; Stop 06/12/19 at 05:4 4; Status DC Morphine Sulfate (Morphine Sulfate) 4 mg PRN Q2HR PRN IV PAIN Last administered on 06/11/19at 07:37; Start 06/11/19 at 05:45; Stop 06/11/19 at 11:54; Status DC Sodium Chloride 1,000 ml @ 150 mls/hr Q6H40M IV Last administered on 06/12/19at 03:28; Start 06/11/19 at 05:45; Stop 06/12/19 at 11:01; Status DC Hydromorphone HCl (Dilaudid) 0.5 mg PRN Q3HRS PRN IV PAIN Last administered on 06/11/19at 08:38; Start 06/11/19 at 05:45; Stop 06/11/19 at 09:12; Status DC Potassium Chloride/Water 100 ml @ 100 mls/hr Q1H IV Last administered on 06/11/19at 08:41; Start 06/11/19 at 06:00; Stop 06/11/19 at 07:59; Status DC Hydromorphone HCl (Dilaudid) 1 mg PRN Q3HRS PRN IV PAIN Last administered on 06/11/19at 09:29; Start 06/11/19 at 09:15; Stop 06/11/19 at 11:54; Status DC Prochlorperazine Edisylate (Compazine) 10 mg PRN Q8HRS PRN IV NAUSEA/VOMITING Last administered on 06/12/19at 14:59; Start 06/11/19 at 12:00 Hydromorphone HCl (Dilaudid) 1 mg PRN Q2HRS PRN IV PAIN Last administered on 06/14/19at 07:44; Start 06/11/19 at 12:00 Pantoprazole Sodium (PROTONIX VIAL for IV PUSH) 40 mg DAILYAC IVP Last administered on 06/12/19at 08:29; Start 06/11/19 at 15:00; Stop 06/12/19 at 16:23; Status DC Lorazepam (Ativan Inj) 1 mg PRN Q6HRS PRN IVP ANXIETY / AGITATION Last administered on 06/13/19at 18:39; Start 06/11/19 at 18:15 Hydralazine HCl (Apresoline Inj) 10 mg PRN Q6HRS PRN IVP ELEVATED BP, SEE COMMENTS Last administered on 06/11/19at 18:22; Start 06/11/19 at 18:15 Nystatin (Nystop) 1 devorah PRN QID PRN TP FUNGAL RASH Last administered on 06/11/19at 23:19; Start 06/11/19 at 23:15 Sodium Chloride 1,000 ml @ 1,000 mls/hr 1X ONCE IV Last administered on 06/12/19at 05:27; Start 06/12/19 at 06:00; Stop 06/12/19 at 06:59; Status DC Sodium Chloride 1,000 ml @ 1,000 mls/hr 1X ONCE IV Last administered on 06/12/19at 05:25; Start 06/12/19 at 05:00; Stop 06/12/19 at 05:59; Status DC Sodium Chloride 1,000 ml @ 200 mls/hr Q5H IV Last administered on 06/12/19at 06:36; Start 06/12/19 at 07:00; Stop 06/12/19 at 11:01; Status DC Sodium Bicarbonate 50 meq/Sodium Chloride 1,050 ml @ 150 mls/hr Q7H IV Last administered on 06/13/19at 04:16; Start 06/12/19 at 11:00; Stop 06/13/19 at 14:48; Status DC Amino Acids/ Glycerin/ Electrolytes 1,000 ml @ 80 mls/hr [id number] IV ; Start 06/12/19 at 10:00; Status UNV Amino Acids/ Electrolytes/ Dextrose 1,000 ml @ 80 mls/hr [id number] IV ; Start 06/12/19 at 10:15 Piperacillin Sod/ Tazobactam Sod (Zosyn Per Pharmacy) 1 each PRN DAILY PRN MC SEE COMMENTS; Start 06/12/19 at 13:15; Stop 06/12/19 at 19:16; Status DC Piperacillin Sod/ Tazobactam Sod 2.25 gm/Sodium Chloride 50 ml @ 100 mls/hr Q6HRS IV Last administered on 06/12/19at 13:48; Start 06/12/19 at 13:30; Stop 06/12/19 at 19:15; Status DC Sodium Bicarbonate (Sodium Bicarb Adult 8.4% Syr) 50 meq 1X ONCE IV Last administered on 06/12/19at 16:12; Start 06/12/19 at 16:00; Stop 06/12/19 at 16:01; Status DC Calcium Gluconate 1000 mg/Sodium Chloride 110 ml @ 220 mls/hr 1X ONCE IV Last administered on 06/12/19at 16:13; Start 06/12/19 at 16:00; Stop 06/12/19 at 16:29; Status DC Dextrose (Dextrose 50%-Water Syringe) 25 gm 1X ONCE IV Last administered on 06/12/19at 16:13; Start 06/12/19 at 16:00; Stop 06/12/19 at 16:01; Status DC Insulin Human Regular (HumuLIN R VIAL) 10 unit 1X ONCE IV Last administered on 06/12/19at 16:14; Start 06/12/19 at 16:00; Stop 06/12/19 at 16:01; Status DC Furosemide (Lasix) 40 mg 1X ONCE IVP Last administered on 06/12/19at 16:13; Start 06/12/19 at 16:00; Stop 06/12/19 at 16:01; Status DC Pantoprazole Sodium (PROTONIX VIAL for IV PUSH) 40 mg [id number] IVP Last administered on 06/13/19at 06:21; Start 06/12/19 at 18:00; Stop 06/13/19 at 18:49; Status DC Meropenem 500 mg/ Sodium Chloride 50 ml @ 100 mls/hr Q12HR IV Last administered on 06/14/19at 07:45; Start 06/12/19 at 21:00 Calcium Gluconate 1000 mg/Sodium Chloride 110 ml @ 220 mls/hr 1X ONCE IV Last administered on 06/12/19at 20:35; Start 06/12/19 at 19:15; Stop 06/12/19 at 19:44; Status DC Lidocaine HCl (Buffered Lidocaine 1%) 3 ml STK-MED ONCE .ROUTE ; Start 06/13/19 at 08:47; Stop 06/13/19 at 08:47; Status DC Lidocaine HCl (Buffered Lidocaine 1%) 6 ml 1X ONCE INJ Last administered on 06/13/19at 09:23; Start 06/13/19 at 09:30; Stop 06/13/19 at 09:31; Status DC Insulin Human Lispro (HumaLOG) 0-7 UNITS TIDWMEALS SQ Last administered on 06/13/19at 12:14; Start 06/13/19 at 12:00 Dextrose (Dextrose 50%-Water Syringe) 12.5 gm PRN Q15MIN PRN IV SEE COMMENTS; Start 06/13/19 at 11:15 Insulin Human Regular 100 unit/ Sodium Chloride 101 ml @ 0 mls/hr CONT PRN IV SEE I/O RECORD Last administered on 06/13/19at 15:03; Start 06/13/19 at 14:15 Sodium Chloride 1,000 ml @ 1,000 mls/hr Q1H PRN IV hypotension; Start 06/13/19 at 14:00; Stop 06/13/19 at 19:59; Status DC Sodium Chloride 1,000 ml @ 400 mls/hr Q2H30M PRN IV PATENCY; Start 06/13/19 at 14:00; Stop 06/14/19 at 01:59; Status DC Info (PHARMACY MONITORING -- do not chart) 1 each PRN DAILY PRN MC SEE COMMENTS; Start 06/13/19 at 14:45; Stop 06/13/19 at 14:51; Status DC Info (PHARMACY MONITORING -- do not chart) 1 each PRN DAILY PRN MC SEE COMMENTS; Start 06/13/19 at 14:45 Pantoprazole Sodium (PROTONIX VIAL for IV PUSH) 40 mg [id number] IVP Last administer ed on 06/14/19at 05:44; Start 06/13/19 at 21:00 Dexmedetomidine HCl 400 mcg/ Sodium Chloride 100 ml @ 0 mls/hr CONT PRN IV PER PROTOCOL Last administered on 06/14/19at 05:17; Start 06/13/19 at 19:00 Sodium Chloride 500 ml @ 500 mls/hr 1X PRN PRN IV SEE COMMENTS; Start 06/13/19 at 19:00 Atropine Sulfate (ATROPINE 0.5mg SYRINGE) 0.5 mg PRN Q5MIN PRN IV SEE COMMENTS; Start 06/13/19 at 19:00 Sodium Chloride 1,000 ml @ 1,000 mls/hr Q1H PRN IV hypotension; Start 06/14/19 at 08:55; Stop 06/14/19 at 14:54 Albumin Human 200 ml @ 200 mls/hr 1X PRN PRN IV Hypotension; Start 06/14/19 at 09:00; Stop 06/14/19 at 14:59 Sodium Chloride 1,000 ml @ 400 mls/hr Q2H30M PRN IV PATENCY; Start 06/14/19 at 08:55; Stop 06/14/19 at 20:54 Info (PHARMACY MONITORING -- do not chart) 1 each PRN DAILY PRN MC SEE COMMENTS; Start 06/14/19 at 09:00; Stop 06/14/19 at 09:06; Status DC Info (PHARMACY MONITORING -- do not chart) 1 each PRN DAILY PRN MC SEE COMMENTS; Start 06/14/19 at 09:00; Stop 06/14/19 at 09:06; Status DC Active Scripts Active Vitals/I & O Vital Sign - Last 24 Hours 06/13/19 06/13/19 06/13/19 06/13/19 10:00 11:00 11:06 11:36 Pulse 114 116 Resp 24 30 22 16 B/P (MAP) 145/76 (99) 148/78 (101) Pulse Ox 96 94 96 97 O2 Delivery Nasal Cannula Nasal Cannula Nasal Cannula Nasal Cannula O2 Flow Rate 3.0 3.0 3.0 3.0 06/13/19 06/13/19 06/13/19 06/13/19 12:00 12:00 13:00 14:00 Temp 98.2 98.2 Pulse 118 117 122 Resp B/P (MAP) 128/68 (88) 131/68 (89) 145/82 (103) Pulse Ox 95 95 95 O2 Delivery Nasal Cannula Nasal Cannula Nasal Cannula Nasal Cannula O2 Flow Rate 3.0 3.0 3.0 3.0 06/13/19 06/13/19 06/13/19 06/13/19 15:00 15:53 16:00 16:00 Temp 98.5 98.5 Pulse 124 126 Resp B/P (MAP) 92/58 (69) 124/69 (87) Pulse Ox 97 98 96 O2 Delivery Nasal Cannula Nasal Cannula Nasal Cannula Nasal Cannula O2 Flow Rate 3.0 4.0 3.0 3.0 06/13/19 06/13/19 06/13/19 06/13/19 16:23 16:54 18:00 19:00 Temp 99.5 99.5 Pulse 131 129 126 Resp B/P (MAP) 114/60 (78) 154/84 (107) 119/76 (90) Pulse Ox 97 97 96 91 O2 Delivery Nasal Cannula Nasal Cannula Room Air Room Air O2 Flow Rate 3.0 3.0 06/13/19 06/13/19 06/13/19 06/13/19 20:00 20:00 21:00 21:46 Pulse 124 120 Resp B/P (MAP) 97/63 (74) 101/76 (84) Pulse Ox 90 94 95 O2 Delivery Room Air Nasal Cannula Nasal Cannula Nasal Cannula O2 Flow Rate 3.0 3.0 3.0 06/13/19 06/13/19 06/13/19 06/14/19 22:00 22:16 23:00 00:00 Temp 99.2 99.2 Pulse 116 116 111 Resp B/P (MAP) 87/70 (76) 90/73 (79) 95/66 (76) Pulse Ox 93 95 94 94 O2 Delivery Nasal Cannula Nasal Cannula Nasal Cannula Nasal Cannula O2 Flow Rate 3.0 3.0 3.0 3.0 06/14/19 06/14/19 06/14/19 06/14/19 00:15 01:00 01:29 02:00 Pulse 108 108 Resp 20 25 B/P (MAP) 111/61 (78) 92/73 (79) Pulse Ox 94 93 94 O2 Delivery Nasal Cannula Nasal Cannula Nasal Cannula Nasal Cannula O2 Flow Rate 3.0 3.0 3.0 3.0 06/14/19 06/14/19 06/14/19 06/14/19 03:00 04:00 04:00 05:00 Temp 99.1 99.1 Pulse 106 106 105 Resp 23 23 23 B/P (MAP) 98/65 (76) 94/52 (66) 106/56 (73) Pulse Ox 94 94 95 O2 Delivery Nasal Cannula Nasal Cannula Nasal Cannula Nasal Cannula O2 Flow Rate 3.0 3.0 3.0 3.0 06/14/19 06/14/19 06/14/19 06/14/19 06:00 07:00 07:44 08:00 Pulse 103 104 Resp 24 27 27 B/P (MAP) 108/57 (74) 115/61 (79) Pulse Ox 94 O2 Delivery Nasal Cannula Nasal Cannula Nasal Cannula Nasal Cannula O2 Flow Rate 3.0 3.0 3.0 3.0 06/14/19 06/14/19 08:00 09:00 Temp 98.1 98.1 Pulse 98 99 Resp 23 23 B/P (MAP) 102/60 (74) 105/62 (76) Pulse Ox 96 95 O2 Delivery Nasal Cannula Nasal Cannula O2 Flow Rate 3.0 3.0 Intake and Output 06/13/19 06/13/19 06/14/19 14:59 22:59 06:59 Intake Total 850 ml 290.3 ml 179.4 ml Output Total 440 ml 205 ml 265 ml Balance 410 ml 85.3 ml -85.6 ml Hemodynamically unstable?: Yes Is patient in severe pain?: Yes Is NPO status required?: Yes JERSON AVILES MD Jun 14, 2019 09:21
--- NOTE | 2019-06-14 10:18 | PDOC ---
Dialysis Progress Note Dialysis Note Dialysis Note Seen on Hemodialysis, tolerating treatment Okay for now. Currently on Precedex, getting IV Albumin Vitals on Hemodialysis: General Appearance: Awake: Alert Oriented x 3 Neck: No JVD or JVP Chest: CTA Kiko Heart: S1 S2 - occ tachy Abdomen - Soft NT + Distended, no BS Extremities - No Edema ARF/ ATN : Dialysis as below F 180 NR 3.0 Hrs 3 K 3.5 Ca 140 Na 35 HC03 Qb 350 + Qd 500+ Uf 0 Kgs or to dry weight as tolerated May give 25-50 gms of 25% Albumin if needed to maintain Hemodynamic stability Treatment plan reviewed and discussed with relish blender [ ] Vitals Vital Signs Vital Signs Date Time Temp Pulse Resp B/P (MAP) Pulse Ox O2 Delivery O2 Flow Rate FiO2 06/14/19 10:00 94 25 82/59 (67) 99 Nasal Cannula 3.0 06/14/19 08:00 98.1 98.1 Labs Last Labs Laboratory Tests Test 06/12/19 13:55 06/12/19 17:30 06/13/19 05:15 06/13/19 11:45 Potassium Level 6.8 mmol/L (3.5-5.1) 4.7 mmol/L (3.5-5.1) 6.9 mmol/L (3.5-5.1) Estimated GFR (Non- 21 (>59) Lactic Acid Level 5.1 mmol/L (0.4-2.0) 5.5 mmol/L (0.4-2.0) Ionized Calcium 0.70 mmol/L (1.13-1.32) EGFR 24 (>59) PTH (Intact) Specimen Description Comment (.) Parathyroid Hormone (Intact) 58 pg/mL (15-65) Calcium (PTH Intact) 5.9 mg/dL (8.7-10.2) Creatinine (PTH Intact) 3.30 mg/dL (0.76-1.27) Phosphorus (PTH Intact) 3.7 mg/dL (2.8-4.1) Sodium Level 142 mmol/L (136-145) 136 mmol/L (136-145) Chloride Level 104 mmol/L (98-107) 102 mmol/L (98-107) Carbon Dioxide Level 24 mmol/L (21-32) 24 mmol/L (21-32) Anion Gap 14 (6-14) 10 (6-14) Blood Urea Nitrogen 56 mg/dL (8-26) 68 mg/dL (8-26) Creatinine 4.2 mg/dL (0.7-1.3) 4.9 mg/dL (0.7-1.3) Estimated GFR (Cockcroft-Gault) 18.3 15.4 Glucose Level 385 mg/dL (70-99) 440 mg/dL (70-99) Calcium Level 5.9 mg/dL (8.5-10.1) 5.1 mg/dL (8.5-10.1) White Blood Count 11.9 x10^3/uL (4.0-11.0) Red Blood Count 5.05 x10^6/uL (4.30-5.70) Hemoglobin 14.6 g/dL (13.0-17.5) Hematocrit 45.1 % (39.0-53.0) Mean Corpuscular Volume 89 fL (79-100) Mean Corpuscular Hemoglobin 29 pg (25-35) Mean Corpuscular Hemoglobin Concent 32 g/dL (31-37) Red Cell Distribution Width 14.4 % (11.5-14.5) Platelet Count 163 x10^3/uL (140-400) Neutrophils (%) (Auto) 87 % (31-73) Lymphocytes (%) (Auto) 4 % (24-48) Monocytes (%) (Auto) 10 % (0-9) Eosinophils (%) (Auto) 0 % (0-3) Basophils (%) (Auto) 0 % (0-3) Neutrophils # (Auto) 10.4 x10^3/uL (1.8-7.7) Lymphocytes # (Auto) 0.4 x10^3/uL (1.0-4.8) Monocytes # (Auto) 1.1 x10^3/uL (0.0-1.1) Eosinophils # (Auto) 0.0 x10^3/uL (0.0-0.7) Basophils # (Auto) 0.0 x10^3/uL (0.0-0.2) Segmented Neutrophils % 55 % (35-66) Band Neutrophils % 24 % (0-9) Lymphocytes % 10 % (24-48) Monocytes % 10 % (0-10) Myelocytes % 1 % (0-0) Platelet Estimate Adequate (ADEQUATE) Phosphorus Level 3.2 mg/dL (2.6-4.7) Magnesium Level 1.8 mg/dL (1.8-2.4) Lipase 9902 U/L (73-393) Hepatitis B Surface Antigen Nonreactive (Nonreactive) Hepatitis B Surface Antibody Reactive Hepatitis B Core Total Antibody Nonreactive (Nonreactive) O2 Saturation 95 % (92-99) Arterial Blood pH 7.30 (7.35-7.45) Arterial Blood pCO2 at Patient Temp 38 mmHg (35-46) Arterial Blood pO2 at Patient Temp 77 mmHg (75-108) Arterial Blood HCO3 18 mmol/L (21-28) Arterial Blood Base Excess -7 mmol/L (-3-3) FiO2 32% nc Test 06/13/19 11:59 06/13/19 14:12 06/13/19 16:00 06/13/19 17:11 Glucose (Fingerstick) 453 mg/dL (70-99) 408 mg/dL (70-99) 206 mg/dL (70-99) 153 mg/dL (70-99) Test 06/13/19 18:13 06/13/19 19:40 06/13/19 19:51 06/13/19 20:54 Glucose (Fingerstick) 150 mg/dL (70-99) 142 mg/dL (70-99) 137 mg/dL (70-99) White Blood Count 11.9 x10^3/uL (4.0-11.0) Red Blood Count 4.57 x10^6/uL (4.30-5.70) Hemoglobin 13.5 g/dL (13.0-17.5) Hematocrit 40.3 % (39.0-53.0) Mean Corpuscular Volume 88 fL (79-100) Mean Corpuscular Hemoglobin 29 pg (25-35) Mean Corpuscular Hemoglobin Concent 33 g/dL (31-37) Red Cell Distribution Width 13.9 % (11.5-14.5) Platelet Count 104 x10^3/uL (140-400) Sodium Level 139 mmol/L (136-145) Potassium Level 4.2 mmol/L (3.5-5.1) Chloride Level 102 mmol/L (98-107) Carbon Dioxide Level 29 mmol/L (21-32) Anion Gap 8 (6-14) Blood Urea Nitrogen 50 mg/dL (8-26) Creatinine 3.6 mg/dL (0.7-1.3) Estimated GFR (Cockcroft-Gault) 21.9 BUN/Creatinine Ratio 14 (6-20) Glucose Level 137 mg/dL (70-99) Calcium Level 6.2 mg/dL (8.5-10.1) Magnesium Level 1.7 mg/dL (1.8-2.4) Total Bilirubin 3.7 mg/dL (0.2-1.0) Aspartate Amino Transf (AST/SGOT) 160 U/L (15-37) Alanine Aminotransferase (ALT/SGPT) 111 U/L (16-63) Alkaline Phosphatase 72 U/L (46-116) Total Protein 6.2 g/dL (6.4-8.2) Albumin 2.7 g/dL (3.4-5.0) Albumin/Globulin Ratio 0.8 (1.0-1.7) Test 06/13/19 22:06 06/13/19 23:11 06/14/19 00:14 06/14/19 01:19 Glucose (Fingerstick) 141 mg/dL (70-99) 128 mg/dL (70-99) 145 mg/dL (70-99) 150 mg/dL (70-99) Test 06/14/19 02:28 06/14/19 03:31 06/14/19 04:37 06/14/19 05:25 Glucose (Fingerstick) 148 mg/dL (70-99) 149 mg/dL (70-99) 137 mg/dL (70-99) White Blood Count 12.8 x10^3/uL (4.0-11.0) Red Blood Count 4.58 x10^6/uL (4.30-5.70) Hemoglobin 13.4 g/dL (13.0-17.5) Hematocrit 40.7 % (39.0-53.0) Mean Corpuscular Volume 89 fL (79-100) Mean Corpuscular Hemoglobin 29 pg (25-35) Mean Corpuscular Hemoglobin Concent 33 g/dL (31-37) Red Cell Distribution Width 14.3 % (11.5-14.5) Platelet Count 112 x10^3/uL (140-400) Neutrophils (%) (Auto) 83 % (31-73) Lymphocytes (%) (Auto) 8 % (24-48) Monocytes (%) (Auto) 9 % (0-9) Eosinophils (%) (Auto) 0 % (0-3) Basophils (%) (Auto) 0 % (0-3) Neutrophils # (Auto) 10.6 x10^3/uL (1.8-7.7) Lymphocytes # (Auto) 1.0 x10^3/uL (1.0-4.8) Monocytes # (Auto) 1.2 x10^3/uL (0.0-1.1) Eosinophils # (Auto) 0.0 x10^3/uL (0.0-0.7) Basophils # (Auto) 0.0 x10^3/uL (0.0-0.2) Sodium Level 139 mmol/L (136-145) Potassium Level 4.8 mmol/L (3.5-5.1) Chloride Level 103 mmol/L (98-107) Carbon Dioxide Level 26 mmol/L (21-32) Anion Gap 10 (6-14) Blood Urea Nitrogen 61 mg/dL (8-26) Creatinine 3.9 mg/dL (0.7-1.3) Estimated GFR (Cockcroft-Gault) 20.0 BUN/Creatinine Ratio 16 (6-20) Glucose Level 156 mg/dL (70-99) Calcium Level < 5.0 mg/dL (8.5-10.1) Total Bilirubin 3.3 mg/dL (0.2-1.0) Aspartate Amino Transf (AST/SGOT) 133 U/L (15-37) Alanine Aminotransferase (ALT/SGPT) 93 U/L (16-63) Alkaline Phosphatase 63 U/L (46-116) Total Protein 5.9 g/dL (6.4-8.2) Albumin 2.5 g/dL (3.4-5.0) Albumin/Globulin Ratio 0.7 (1.0-1.7) Test 06/14/19 10:02 Glucose (Fingerstick) 114 mg/dL (70-99) Laboratory Tests Test 06/13/19 11:45 06/13/19 11:59 06/13/19 14:12 06/13/19 16:00 O2 Saturation 95 % (92-99) Arterial Blood pH 7.30 (7.35-7.45) Arterial Blood pCO2 at Patient Temp 38 mmHg (35-46) Arterial Blood pO2 at Patient Temp 77 mmHg (75-108) Arterial Blood HCO3 18 mmol/L (21-28) Arterial Blood Base Excess -7 mmol/L (-3-3) FiO2 32% nc Glucose (Fingerstick) 453 mg/dL (70-99) 408 mg/dL (70-99) 206 mg/dL (70-99) Test 06/13/19 17:11 06/13/19 18:13 06/13/19 19:40 06/13/19 19:51 Glucose (Fingerstick) 153 mg/dL (70-99) 150 mg/dL (70-99) 142 mg/dL (70-99) White Blood Count 11.9 x10^3/uL (4.0-11.0) Red Blood Count 4.57 x10^6/uL (4.30-5.70) Hemoglobin 13.5 g/dL (13.0-17.5) Hematocrit 40.3 % (39.0-53.0) Mean Corpuscular Volume 88 fL (79-100) Mean Corpuscular Hemoglobin 29 pg (25-35) Mean Corpuscular Hemoglobin Concent 33 g/dL (31-37) Red Cell Distribution Width 13.9 % (11.5-14.5) Platelet Count 104 x10^3/uL (140-400) Sodium Level 139 mmol/L (136-145) Potassium Level 4.2 mmol/L (3.5-5.1) Chloride Level 102 mmol/L (98-107) Carbon Dioxide Level 29 mmol/L (21-32) Anion Gap 8 (6-14) Blood Urea Nitrogen 50 mg/dL (8-26) Creatinine 3.6 mg/dL (0.7-1.3) Estimated GFR (Cockcroft-Gault) 21.9 BUN/Creatinine Ratio 14 (6-20) Glucose Level 137 mg/dL (70-99) Calcium Level 6.2 mg/dL (8.5-10.1) Magnesium Level 1.7 mg/dL (1.8-2.4) Total Bilirubin 3.7 mg/dL (0.2-1.0) Aspartate Amino Transf (AST/SGOT) 160 U/L (15-37) Alanine Aminotransferase (ALT/SGPT) 111 U/L (16-63) Alkaline Phosphatase 72 U/L (46-116) Total Protein 6.2 g/dL (6.4-8.2) Albumin 2.7 g/dL (3.4-5.0) Albumin/Globulin Ratio 0.8 (1.0-1.7) Test 06/13/19 20:54 06/13/19 22:06 06/13/19 23:11 06/14/19 00:14 Glucose (Fingerstick) 137 mg/dL (70-99) 141 mg/dL (70-99) 128 mg/dL (70-99) 145 mg/dL (70-99) Test 06/14/19 01:19 06/14/19 02:28 06/14/19 03:31 06/14/19 04:37 Glucose (Fingerstick) 150 mg/dL (70-99) 148 mg/dL (70-99) 149 mg/dL (70-99) 137 mg/dL (70-99) Test 06/14/19 05:25 06/14/19 10:02 White Blood Count 12.8 x10^3/uL (4.0-11.0) Red Blood Count 4.58 x10^6/uL (4.30-5.70) Hemoglobin 13.4 g/dL (13.0-17.5) Hematocrit 40.7 % (39.0-53.0) Mean Corpuscular Volume 89 fL (79-100) Mean Corpuscular Hemoglobin 29 pg (25-35) Mean Corpuscular Hemoglobin Concent 33 g/dL (31-37) Red Cell Distribution Width 14.3 % (11.5-14.5) Platelet Count 112 x10^3/uL (140-400) Neutrophils (%) (Auto) 83 % (31-73) Lymphocytes (%) (Auto) 8 % (24-48) Monocytes (%) (Auto) 9 % (0-9) Eosinophils (%) (Auto) 0 % (0-3) Basophils (%) (Auto) 0 % (0-3) Neutrophils # (Auto) 10.6 x10^3/uL (1.8-7.7) Lymphocytes # (Auto) 1.0 x10^3/uL (1.0-4.8) Monocytes # (Auto) 1.2 x10^3/uL (0.0-1.1) Eosinophils # (Auto) 0.0 x10^3/uL (0.0-0.7) Basophils # (Auto) 0.0 x10^3/uL (0.0-0.2) Sodium Level 139 mmol/L (136-145) Potassium Level 4.8 mmol/L (3.5-5.1) Chloride Level 103 mmol/L (98-107) Carbon Dioxide Level 26 mmol/L (21-32) Anion Gap 10 (6-14) Blood Urea Nitrogen 61 mg/dL (8-26) Creatinine 3.9 mg/dL (0.7-1.3) Estimated GFR (Cockcroft-Gault) 20.0 BUN/Creatinine Ratio 16 (6-20) Glucose Level 156 mg/dL (70-99) Calcium Level < 5.0 mg/dL (8.5-10.1) Total Bilirubin 3.3 mg/dL (0.2-1.0) Aspartate Amino Transf (AST/SGOT) 133 U/L (15-37) Alanine Aminotransferase (ALT/SGPT) 93 U/L (16-63) Alkaline Phosphatase 63 U/L (46-116) Total Protein 5.9 g/dL (6.4-8.2) Albumin 2.5 g/dL (3.4-5.0) Albumin/Globulin Ratio 0.7 (1.0-1.7) Glucose (Fingerstick) 114 mg/dL (70-99) Assessment Assessment Problems Medical Problems: (1) Acute pancreatitis Status: Acute (2) Nausea & vomiting Status: Acute Plan Plan of Care Problems Medical Problems: (1) Acute pancreatitis Status: Acute (2) Nausea & vomiting Status: Acute YOGI GOODMAN MD Jun 14, 2019 10:18
[2019-06-14] MEDS ORDERED: NOREPINEPHRINE VIAL 8 MG in IV DEXTROSE 5% 250 ML IV PRN (10:30)
[2019-06-14] MEDS ORDERED: MAGNESIUM SULFATE 2GM 50 ML IV PRN (10:30)
--- NOTE | 2019-06-14 11:11 | PDOC ---
G I PROGRESS NOTE Subjective Unresponsive. Physical Exam Lungs coarse bilaterally. RRR Abdomen distended, firm. Hear no bowel sounds. Review of Relevant I have reviewed the following items alexandra (where applicable) has been applied. Labs Laboratory Tests Test 06/12/19 13:55 06/12/19 17:30 06/13/19 05:15 06/13/19 11:45 Potassium Level 6.8 mmol/L (3.5-5.1) 4.7 mmol/L (3.5-5.1) 6.9 mmol/L (3.5-5.1) Estimated GFR (Non- 21 (>59) Lactic Acid Level 5.1 mmol/L (0.4-2.0) 5.5 mmol/L (0.4-2.0) Ionized Calcium 0.70 mmol/L (1.13-1.32) EGFR 24 (>59) PTH (Intact) Specimen Description Comment (.) Parathyroid Hormone (Intact) 58 pg/mL (15-65) Calcium (PTH Intact) 5.9 mg/dL (8.7-10.2) Creatinine (PTH Intact) 3.30 mg/dL (0.76-1.27) Phosphorus (PTH Intact) 3.7 mg/dL (2.8-4.1) Sodium Level 142 mmol/L (136-145) 136 mmol/L (136-145) Chloride Level 104 mmol/L (98-107) 102 mmol/L (98-107) Carbon Dioxide Level 24 mmol/L (21-32) 24 mmol/L (21-32) Anion Gap 14 (6-14) 10 (6-14) Blood Urea Nitrogen 56 mg/dL (8-26) 68 mg/dL (8-26) Creatinine 4.2 mg/dL (0.7-1.3) 4.9 mg/dL (0.7-1.3) Estimated GFR (Cockcroft-Gault) 18.3 15.4 Glucose Level 385 mg/dL (70-99) 440 mg/dL (70-99) Calcium Level 5.9 mg/dL (8.5-10.1) 5.1 mg/dL (8.5-10.1) White Blood Count 11.9 x10^3/uL (4.0-11.0) Red Blood Count 5.05 x10^6/uL (4.30-5.70) Hemoglobin 14.6 g/dL (13.0-17.5) Hematocrit 45.1 % (39.0-53.0) Mean Corpuscular Volume 89 fL (79-100) Mean Corpuscular Hemoglobin 29 pg (25-35) Mean Corpuscular Hemoglobin Concent 32 g/dL (31-37) Red Cell Distribution Width 14.4 % (11.5-14.5) Platelet Count 163 x10^3/uL (140-400) Neutrophils (%) (Auto) 87 % (31-73) Lymphocytes (%) (Auto) 4 % (24-48) Monocytes (%) (Auto) 10 % (0-9) Eosinophils (%) (Auto) 0 % (0-3) Basophils (%) (Auto) 0 % (0-3) Neutrophils # (Auto) 10.4 x10^3/uL (1.8-7.7) Lymphocytes # (Auto) 0.4 x10^3/uL (1.0-4.8) Monocytes # (Auto) 1.1 x10^3/uL (0.0-1.1) Eosinophils # (Auto) 0.0 x10^3/uL (0.0-0.7) Basophils # (Auto) 0.0 x10^3/uL (0.0-0.2) Segmented Neutrophils % 55 % (35-66) Band Neutrophils % 24 % (0-9) Lymphocytes % 10 % (24-48) Monocytes % 10 % (0-10) Myelocytes % 1 % (0-0) Platelet Estimate Adequate (ADEQUATE) Phosphorus Level 3.2 mg/dL (2.6-4.7) Magnesium Level 1.8 mg/dL (1.8-2.4) Lipase 9902 U/L (73-393) Hepatitis B Surface Antigen Nonreactive (Nonreactive) Hepatitis B Surface Antibody Reactive Hepatitis B Core Total Antibody Nonreactive (Nonreactive) O2 Saturation 95 % (92-99) Arterial Blood pH 7.30 (7.35-7.45) Arterial Blood pCO2 at Patient Temp 38 mmHg (35-46) Arterial Blood pO2 at Patient Temp 77 mmHg (75-108) Arterial Blood HCO3 18 mmol/L (21-28) Arterial Blood Base Excess -7 mmol/L (-3-3) FiO2 32% nc Test 06/13/19 11:59 06/13/19 14:12 06/13/19 16:00 06/13/19 17:11 Glucose (Fingerstick) 453 mg/dL (70-99) 408 mg/dL (70-99) 206 mg/dL (70-99) 153 mg/dL (70-99) Test 06/13/19 18:13 06/13/19 19:40 06/13/19 19:51 06/13/19 20:54 Glucose (Fingerstick) 150 mg/dL (70-99) 142 mg/dL (70-99) 137 mg/dL (70-99) White Blood Count 11.9 x10^3/uL (4.0-11.0) Red Blood Count 4.57 x10^6/uL (4.30-5.70) Hemoglobin 13.5 g/dL (13.0-17.5) Hematocrit 40.3 % (39.0-53.0) Mean Corpuscular Volume 88 fL (79-100) Mean Corpuscular Hemoglobin 29 pg (25-35) Mean Corpuscular Hemoglobin Concent 33 g/dL (31-37) Red Cell Distribution Width 13.9 % (11.5-14.5) Platelet Count 104 x10^3/uL (140-400) Sodium Level 139 mmol/L (136-145) Potassium Level 4.2 mmol/L (3.5-5.1) Chloride Level 102 mmol/L (98-107) Carbon Dioxide Level 29 mmol/L (21-32) Anion Gap 8 (6-14) Blood Urea Nitrogen 50 mg/dL (8-26) Creatinine 3.6 mg/dL (0.7-1.3) Estimated GFR (Cockcroft-Gault) 21.9 BUN/Creatinine Ratio 14 (6-20) Glucose Level 137 mg/dL (70-99) Calcium Level 6.2 mg/dL (8.5-10.1) Magnesium Level 1.7 mg/dL (1.8-2.4) Total Bilirubin 3.7 mg/dL (0.2-1.0) Aspartate Amino Transf (AST/SGOT) 160 U/L (15-37) Alanine Aminotransferase (ALT/SGPT) 111 U/L (16-63) Alkaline Phosphatase 72 U/L (46-116) Total Protein 6.2 g/dL (6.4-8.2) Albumin 2.7 g/dL (3.4-5.0) Albumin/Globulin Ratio 0.8 (1.0-1.7) Test 06/13/19 22:06 06/13/19 23:11 06/14/19 00:14 06/14/19 01:19 Glucose (Fingerstick) 141 mg/dL (70-99) 128 mg/dL (70-99) 145 mg/dL (70-99) 150 mg/dL (70-99) Test 06/14/19 02:28 06/14/19 03:31 06/14/19 04:37 06/14/19 05:25 Glucose (Fingerstick) 148 mg/dL (70-99) 149 mg/dL (70-99) 137 mg/dL (70-99) White Blood Count 12.8 x10^3/uL (4.0-11.0) Red Blood Count 4.58 x10^6/uL (4.30-5.70) Hemoglobin 13.4 g/dL (13.0-17.5) Hematocrit 40.7 % (39.0-53.0) Mean Corpuscular Volume 89 fL (79-100) Mean Corpuscular Hemoglobin 29 pg (25-35) Mean Corpuscular Hemoglobin Concent 33 g/dL (31-37) Red Cell Distribution Width 14.3 % (11.5-14.5) Platelet Count 112 x10^3/uL (140-400) Neutrophils (%) (Auto) 83 % (31-73) Lymphocytes (%) (Auto) 8 % (24-48) Monocytes (%) (Auto) 9 % (0-9) Eosinophils (%) (Auto) 0 % (0-3) Basophils (%) (Auto) 0 % (0-3) Neutrophils # (Auto) 10.6 x10^3/uL (1.8-7.7) Lymphocytes # (Auto) 1.0 x10^3/uL (1.0-4.8) Monocytes # (Auto) 1.2 x10^3/uL (0.0-1.1) Eosinophils # (Auto) 0.0 x10^3/uL (0.0-0.7) Basophils # (Auto) 0.0 x10^3/uL (0.0-0.2) Sodium Level 139 mmol/L (136-145) Potassium Level 4.8 mmol/L (3.5-5.1) Chloride Level 103 mmol/L (98-107) Carbon Dioxide Level 26 mmol/L (21-32) Anion Gap 10 (6-14) Blood Urea Nitrogen 61 mg/dL (8-26) Creatinine 3.9 mg/dL (0.7-1.3) Estimated GFR (Cockcroft-Gault) 20.0 BUN/Creatinine Ratio 16 (6-20) Glucose Level 156 mg/dL (70-99) Calcium Level < 5.0 mg/dL (8.5-10.1) Total Bilirubin 3.3 mg/dL (0.2-1.0) Aspartate Amino Transf (AST/SGOT) 133 U/L (15-37) Alanine Aminotransferase (ALT/SGPT) 93 U/L (16-63) Alkaline Phosphatase 63 U/L (46-116) Total Protein 5.9 g/dL (6.4-8.2) Albumin 2.5 g/dL (3.4-5.0) Albumin/Globulin Ratio 0.7 (1.0-1.7) Test 06/14/19 10:02 Glucose (Fingerstick) 114 mg/dL (70-99) Laboratory Tests Test 06/13/19 11:45 06/13/19 11:59 06/13/19 14:12 06/13/19 16:00 O2 Saturation 95 % (92-99) Arterial Blood pH 7.30 (7.35-7.45) Arterial Blood pCO2 at Patient Temp 38 mmHg (35-46) Arterial Blood pO2 at Patient Temp 77 mmHg (75-108) Arterial Blood HCO3 18 mmol/L (21-28) Arterial Blood Base Excess -7 mmol/L (-3-3) FiO2 32% nc Glucose (Fingerstick) 453 mg/dL (70-99) 408 mg/dL (70-99) 206 mg/dL (70-99) Test 06/13/19 17:11 06/13/19 18:13 06/13/19 19:40 06/13/19 19:51 Glucose (Fingerstick) 153 mg/dL (70-99) 150 mg/dL (70-99) 142 mg/dL (70-99) White Blood Count 11.9 x10^3/uL (4.0-11.0) Red Blood Count 4.57 x10^6/uL (4.30-5.70) Hemoglobin 13.5 g/dL (13.0-17.5) Hematocrit 40.3 % (39.0-53.0) Mean Corpuscular Volume 88 fL (79-100) Mean Corpuscular Hemoglobin 29 pg (25-35) Mean Corpuscular Hemoglobin Concent 33 g/dL (31-37) Red Cell Distribution Width 13.9 % (11.5-14.5) Platelet Count 104 x10^3/uL (140-400) Sodium Level 139 mmol/L (136-145) Potassium Level 4.2 mmol/L (3.5-5.1) Chloride Level 102 mmol/L (98-107) Carbon Dioxide Level 29 mmol/L (21-32) Anion Gap 8 (6-14) Blood Urea Nitrogen 50 mg/dL (8-26) Creatinine 3.6 mg/dL (0.7-1.3) Estimated GFR (Cockcroft-Gault) 21.9 BUN/Creatinine Ratio 14 (6-20) Glucose Level 137 mg/dL (70-99) Calcium Level 6.2 mg/dL (8.5-10.1) Magnesium Level 1.7 mg/dL (1.8-2.4) Total Bilirubin 3.7 mg/dL (0.2-1.0) Aspartate Amino Transf (AST/SGOT) 160 U/L (15-37) Alanine Aminotransferase (ALT/SGPT) 111 U/L (16-63) Alkaline Phosphatase 72 U/L (46-116) Total Protein 6.2 g/dL (6.4-8.2) Albumin 2.7 g/dL (3.4-5.0) Albumin/Globulin Ratio 0.8 (1.0-1.7) Test 06/13/19 20:54 06/13/19 22:06 06/13/19 23:11 06/14/19 00:14 Glucose (Fingerstick) 137 mg/dL (70-99) 141 mg/dL (70-99) 128 mg/dL (70-99) 145 mg/dL (70-99) Test 06/14/19 01:19 06/14/19 02:28 06/14/19 03:31 06/14/19 04:37 Glucose (Fingerstick) 150 mg/dL (70-99) 148 mg/dL (70-99) 149 mg/dL (70-99) 137 mg/dL (70-99) Test 06/14/19 05:25 06/14/19 10:02 White Blood Count 12.8 x10^3/uL (4.0-11.0) Red Blood Count 4.58 x10^6/uL (4.30-5.70) Hemoglobin 13.4 g/dL (13.0-17.5) Hematocrit 40.7 % (39.0-53.0) Mean Corpuscular Volume 89 fL (79-100) Mean Corpuscular Hemoglobin 29 pg (25-35) Mean Corpuscular Hemoglobin Concent 33 g/dL (31-37) Red Cell Distribution Width 14.3 % (11.5-14.5) Platelet Count 112 x10^3/uL (140-400) Neutrophils (%) (Auto) 83 % (31-73) Lymphocytes (%) (Auto) 8 % (24-48) Monocytes (%) (Auto) 9 % (0-9) Eosinophils (%) (Auto) 0 % (0-3) Basophils (%) (Auto) 0 % (0-3) Neutrophils # (Auto) 10.6 x10^3/uL (1.8-7.7) Lymphocytes # (Auto) 1.0 x10^3/uL (1.0-4.8) Monocytes # (Auto) 1.2 x10^3/uL (0.0-1.1) Eosinophils # (Auto) 0.0 x10^3/uL (0.0-0.7) Basophils # (Auto) 0.0 x10^3/uL (0.0-0.2) Sodium Level 139 mmol/L (136-145) Potassium Level 4.8 mmol/L (3.5-5.1) Chloride Level 103 mmol/L (98-107) Carbon Dioxide Level 26 mmol/L (21-32) Anion Gap 10 (6-14) Blood Urea Nitrogen 61 mg/dL (8-26) Creatinine 3.9 mg/dL (0.7-1.3) Estimated GFR (Cockcroft-Gault) 20.0 BUN/Creatinine Ratio 16 (6-20) Glucose Level 156 mg/dL (70-99) Calcium Level < 5.0 mg/dL (8.5-10.1) Total Bilirubin 3.3 mg/dL (0.2-1.0) Aspartate Amino Transf (AST/SGOT) 133 U/L (15-37) Alanine Aminotransferase (ALT/SGPT) 93 U/L (16-63) Alkaline Phosphatase 63 U/L (46-116) Total Protein 5.9 g/dL (6.4-8.2) Albumin 2.5 g/dL (3.4-5.0) Albumin/Globulin Ratio 0.7 (1.0-1.7) Glucose (Fingerstick) 114 mg/dL (70-99) Microbiology 06/12/19 Blood Culture - Preliminary, Resulted NO GROWTH AFTER 1 DAY Vitals/I & O Vital Sign - Last 24 Hours 06/13/19 06/13/19 06/13/19 06/13/19 11:36 12:00 12:00 13:00 Temp 98.2 98.2 Pulse 118 117 Resp B/P (MAP) 128/68 (88) 131/68 (89) Pulse Ox 97 95 95 O2 Delivery Nasal Cannula Nasal Cannula Nasal Cannula Nasal Cannula O2 Flow Rate 3.0 3.0 3.0 3.0 06/13/19 06/13/19 06/13/19 06/13/19 14:00 15:00 15:53 16:00 Pulse 122 124 Resp 24 B/P (MAP) 145/82 (103) 92/58 (69) Pulse Ox 95 97 98 O2 Delivery Nasal Cannula Nasal Cannula Nasal Cannula Nasal Cannula O2 Flow Rate 3.0 3.0 4.0 3.0 06/13/19 06/13/19 06/13/19 06/13/19 16:00 16:23 16:54 18:00 Temp 98.5 98.5 Pulse 126 131 129 Resp B/P (MAP) 124/69 (87) 114/60 (78) 154/84 (107) Pulse Ox 96 97 97 96 O2 Delivery Nasal Cannula Nasal Cannula Nasal Cannula Room Air O2 Flow Rate 3.0 3.0 3.0 06/13/19 06/13/19 06/13/19 06/13/19 19:00 20:00 20:00 21:00 Temp 99.5 99.5 Pulse 126 124 120 Resp 20 20 20 B/P (MAP) 119/76 (90) 97/63 (74) 101/76 (84) Pulse Ox 91 90 94 O2 Delivery Room Air Room Air Nasal Cannula Nasal Cannula O2 Flow Rate 3.0 3.0 06/13/19 06/13/19 06/13/19 06/13/19 21:46 22:00 22:16 23:00 Pulse 116 116 Resp 20 B/P (MAP) 87/70 (76) 90/73 (79) Pulse Ox 95 93 95 94 O2 Delivery Nasal Cannula Nasal Cannula Nasal Cannula Nasal Cannula O2 Flow Rate 3.0 3.0 3.0 3.0 06/14/19 06/14/19 06/14/19 06/14/19 00:00 00:15 01:00 01:29 Temp 99.2 99.2 Pulse 111 108 Resp 20 B/P (MAP) 95/66 (76) 111/61 (78) Pulse Ox 94 94 93 O2 Delivery Nasal Cannula Nasal Cannula Nasal Cannula Nasal Cannula O2 Flow Rate 3.0 3.0 3.0 3.0 06/14/19 06/14/19 06/14/19 06/14/19 02:00 03:00 04:00 04:00 Pulse 108 106 106 Resp B/P (MAP) 92/73 (79) 98/65 (76) 94/52 (66) Pulse Ox 94 94 94 O2 Delivery Nasal Cannula Nasal Cannula Nasal Cannula Nasal Cannula O2 Flow Rate 3.0 3.0 3.0 3.0 06/14/19 06/14/19 06/14/19 06/14/19 05:00 06:00 07:00 07:44 Temp 99.1 99.1 Pulse 105 103 104 Resp 27 B/P (MAP) 106/56 (73) 108/57 (74) 115/61 (79) Pulse Ox 95 94 O2 Delivery Nasal Cannula Nasal Cannula Nasal Cannula Nasal Cannula O2 Flow Rate 3.0 3.0 3.0 3.0 06/14/19 06/14/19 06/14/19 06/14/19 08:00 08:00 08:14 09:00 Temp 98.1 98.1 Pulse 98 99 Resp 23 25 23 B/P (MAP) 102/60 (74) 105/62 (76) Pulse Ox 96 99 95 O2 Delivery Nasal Cannula Nasal Cannula Nasal Cannula Nasal Cannula O2 Flow Rate 3.0 3.0 3.0 3.0 06/14/19 10:00 Pulse 94 Resp 25 B/P (MAP) 82/59 (67) Pulse Ox 99 O2 Delivery Nasal Cannula O2 Flow Rate 3.0 Intake and Output 06/13/19 06/13/19 06/14/19 15:00 23:00 07:00 Intake Total 850 ml 290.3 ml 179.4 ml Output Total 470 ml 175 ml 265 ml Balance 380 ml 115.3 ml -85.6 ml Problem List Problems Medical Problems: (1) Acute pancreatitis Status: Acute (2) Nausea & vomiting Status: Acute Assessment Severe pancreatitis, biliary/associated ileus. Borderline pulmonary status. Plan of Care Note Continue support. Hemodynamically unstable?: Yes Is patient in severe pain?: Yes Is NPO status required?: Yes MARIA L CRUZ MD Jun 14, 2019 11:11
--- NOTE | 2019-06-14 11:20 | PDOC ---
SURGICAL PROGRESS NOTE Subjective Ceasar for Dr Dawson pt being dialyzed does not respond to voice Vital Signs Vital Signs Date Time Temp Pulse Resp B/P (MAP) Pulse Ox O2 Delivery O2 Flow Rate FiO2 06/14/19 10:00 94 25 82/59 (67) 99 Nasal Cannula 3.0 06/14/19 08:00 98.1 98.1 I&O Intake and Output 06/14/19 07:00 Intake Total 1319.7 ml Output Total 910 ml Balance 409.7 ml Intake Oral 300 ml IV Total 1019.7 ml Output Urine Total 910 ml PATIENT HAS A LEPE: Yes HEENT: Other (NG in place with minimal bilious output) Abdomen: Soft, Other (mildly distended) Labs Laboratory Tests Test 06/12/19 13:55 06/12/19 17:30 06/13/19 05:15 06/13/19 11:45 Potassium Level 6.8 mmol/L (3.5-5.1) 4.7 mmol/L (3.5-5.1) 6.9 mmol/L (3.5-5.1) Estimated GFR (Non- 21 (>59) Lactic Acid Level 5.1 mmol/L (0.4-2.0) 5.5 mmol/L (0.4-2.0) Ionized Calcium 0.70 mmol/L (1.13-1.32) EGFR 24 (>59) PTH (Intact) Specimen Description Comment (.) Parathyroid Hormone (Intact) 58 pg/mL (15-65) Calcium (PTH Intact) 5.9 mg/dL (8.7-10.2) Creatinine (PTH Intact) 3.30 mg/dL (0.76-1.27) Phosphorus (PTH Intact) 3.7 mg/dL (2.8-4.1) Sodium Level 142 mmol/L (136-145) 136 mmol/L (136-145) Chloride Level 104 mmol/L (98-107) 102 mmol/L (98-107) Carbon Dioxide Level 24 mmol/L (21-32) 24 mmol/L (21-32) Anion Gap 14 (6-14) 10 (6-14) Blood Urea Nitrogen 56 mg/dL (8-26) 68 mg/dL (8-26) Creatinine 4.2 mg/dL (0.7-1.3) 4.9 mg/dL (0.7-1.3) Estimated GFR (Cockcroft-Gault) 18.3 15.4 Glucose Level 385 mg/dL (70-99) 440 mg/dL (70-99) Calcium Level 5.9 mg/dL (8.5-10.1) 5.1 mg/dL (8.5-10.1) White Blood Count 11.9 x10^3/uL (4.0-11.0) Red Blood Count 5.05 x10^6/uL (4.30-5.70) Hemoglobin 14.6 g/dL (13.0-17.5) Hematocrit 45.1 % (39.0-53.0) Mean Corpuscular Volume 89 fL (79-100) Mean Corpuscular Hemoglobin 29 pg (25-35) Mean Corpuscular Hemoglobin Concent 32 g/dL (31-37) Red Cell Distribution Width 14.4 % (11.5-14.5) Platelet Count 163 x10^3/uL (140-400) Neutrophils (%) (Auto) 87 % (31-73) Lymphocytes (%) (Auto) 4 % (24-48) Monocytes (%) (Auto) 10 % (0-9) Eosinophils (%) (Auto) 0 % (0-3) Basophils (%) (Auto) 0 % (0-3) Neutrophils # (Auto) 10.4 x10^3/uL (1.8-7.7) Lymphocytes # (Auto) 0.4 x10^3/uL (1.0-4.8) Monocytes # (Auto) 1.1 x10^3/uL (0.0-1.1) Eosinophils # (Auto) 0.0 x10^3/uL (0.0-0.7) Basophils # (Auto) 0.0 x10^3/uL (0.0-0.2) Segmented Neutrophils % 55 % (35-66) Band Neutrophils % 24 % (0-9) Lymphocytes % 10 % (24-48) Monocytes % 10 % (0-10) Myelocytes % 1 % (0-0) Platelet Estimate Adequate (ADEQUATE) Phosphorus Level 3.2 mg/dL (2.6-4.7) Magnesium Level 1.8 mg/dL (1.8-2.4) Lipase 9902 U/L (73-393) Hepatitis B Surface Antigen Nonreactive (Nonreactive) Hepatitis B Surface Antibody Reactive Hepatitis B Core Total Antibody Nonreactive (Nonreactive) O2 Saturation 95 % (92-99) Arterial Blood pH 7.30 (7.35-7.45) Arterial Blood pCO2 at Patient Temp 38 mmHg (35-46) Arterial Blood pO2 at Patient Temp 77 mmHg (75-108) Arterial Blood HCO3 18 mmol/L (21-28) Arterial Blood Base Excess -7 mmol/L (-3-3) FiO2 32% nc Test 06/13/19 11:59 06/13/19 14:12 06/13/19 16:00 06/13/19 17:11 Glucose (Fingerstick) 453 mg/dL (70-99) 408 mg/dL (70-99) 206 mg/dL (70-99) 153 mg/dL (70-99) Test 06/13/19 18:13 06/13/19 19:40 06/13/19 19:51 06/13/19 20:54 Glucose (Fingerstick) 150 mg/dL (70-99) 142 mg/dL (70-99) 137 mg/dL (70-99) White Blood Count 11.9 x10^3/uL (4.0-11.0) Red Blood Count 4.57 x10^6/uL (4.30-5.70) Hemoglobin 13.5 g/dL (13.0-17.5) Hematocrit 40.3 % (39.0-53.0) Mean Corpuscular Volume 88 fL (79-100) Mean Corpuscular Hemoglobin 29 pg (25-35) Mean Corpuscular Hemoglobin Concent 33 g/dL (31-37) Red Cell Distribution Width 13.9 % (11.5-14.5) Platelet Count 104 x10^3/uL (140-400) Sodium Level 139 mmol/L (136-145) Potassium Level 4.2 mmol/L (3.5-5.1) Chloride Level 102 mmol/L (98-107) Carbon Dioxide Level 29 mmol/L (21-32) Anion Gap 8 (6-14) Blood Urea Nitrogen 50 mg/dL (8-26) Creatinine 3.6 mg/dL (0.7-1.3) Estimated GFR (Cockcroft-Gault) 21.9 BUN/Creatinine Ratio 14 (6-20) Glucose Level 137 mg/dL (70-99) Calcium Level 6.2 mg/dL (8.5-10.1) Magnesium Level 1.7 mg/dL (1.8-2.4) Total Bilirubin 3.7 mg/dL (0.2-1.0) Aspartate Amino Transf (AST/SGOT) 160 U/L (15-37) Alanine Aminotransferase (ALT/SGPT) 111 U/L (16-63) Alkaline Phosphatase 72 U/L (46-116) Total Protein 6.2 g/dL (6.4-8.2) Albumin 2.7 g/dL (3.4-5.0) Albumin/Globulin Ratio 0.8 (1.0-1.7) Test 06/13/19 22:06 06/13/19 23:11 06/14/19 00:14 06/14/19 01:19 Glucose (Fingerstick) 141 mg/dL (70-99) 128 mg/dL (70-99) 145 mg/dL (70-99) 150 mg/dL (70-99) Test 06/14/19 02:28 06/14/19 03:31 06/14/19 04:37 06/14/19 05:25 Glucose (Fingerstick) 148 mg/dL (70-99) 149 mg/dL (70-99) 137 mg/dL (70-99) White Blood Count 12.8 x10^3/uL (4.0-11.0) Red Blood Count 4.58 x10^6/uL (4.30-5.70) Hemoglobin 13.4 g/dL (13.0-17.5) Hematocrit 40.7 % (39.0-53.0) Mean Corpuscular Volume 89 fL (79-100) Mean Corpuscular Hemoglobin 29 pg (25-35) Mean Corpuscular Hemoglobin Concent 33 g/dL (31-37) Red Cell Distribution Width 14.3 % (11.5-14.5) Platelet Count 112 x10^3/uL (140-400) Neutrophils (%) (Auto) 83 % (31-73) Lymphocytes (%) (Auto) 8 % (24-48) Monocytes (%) (Auto) 9 % (0-9) Eosinophils (%) (Auto) 0 % (0-3) Basophils (%) (Auto) 0 % (0-3) Neutrophils # (Auto) 10.6 x10^3/uL (1.8-7.7) Lymphocytes # (Auto) 1.0 x10^3/uL (1.0-4.8) Monocytes # (Auto) 1.2 x10^3/uL (0.0-1.1) Eosinophils # (Auto) 0.0 x10^3/uL (0.0-0.7) Basophils # (Auto) 0.0 x10^3/uL (0.0-0.2) Sodium Level 139 mmol/L (136-145) Potassium Level 4.8 mmol/L (3.5-5.1) Chloride Level 103 mmol/L (98-107) Carbon Dioxide Level 26 mmol/L (21-32) Anion Gap 10 (6-14) Blood Urea Nitrogen 61 mg/dL (8-26) Creatinine 3.9 mg/dL (0.7-1.3) Estimated GFR (Cockcroft-Gault) 20.0 BUN/Creatinine Ratio 16 (6-20) Glucose Level 156 mg/dL (70-99) Calcium Level < 5.0 mg/dL (8.5-10.1) Total Bilirubin 3.3 mg/dL (0.2-1.0) Aspartate Amino Transf (AST/SGOT) 133 U/L (15-37) Alanine Aminotransferase (ALT/SGPT) 93 U/L (16-63) Alkaline Phosphatase 63 U/L (46-116) Total Protein 5.9 g/dL (6.4-8.2) Albumin 2.5 g/dL (3.4-5.0) Albumin/Globulin Ratio 0.7 (1.0-1.7) Test 06/14/19 10:02 Glucose (Fingerstick) 114 mg/dL (70-99) Laboratory Tests Test 06/13/19 11:45 06/13/19 11:59 06/13/19 14:12 06/13/19 16:00 O2 Saturation 95 % (92-99) Arterial Blood pH 7.30 (7.35-7.45) Arterial Blood pCO2 at Patient Temp 38 mmHg (35-46) Arterial Blood pO2 at Patient Temp 77 mmHg (75-108) Arterial Blood HCO3 18 mmol/L (21-28) Arterial Blood Base Excess -7 mmol/L (-3-3) FiO2 32% nc Glucose (Fingerstick) 453 mg/dL (70-99) 408 mg/dL (70-99) 206 mg/dL (70-99) Test 06/13/19 17:11 06/13/19 18:13 06/13/19 19:40 06/13/19 19:51 Glucose (Fingerstick) 153 mg/dL (70-99) 150 mg/dL (70-99) 142 mg/dL (70-99) White Blood Count 11.9 x10^3/uL (4.0-11.0) Red Blood Count 4.57 x10^6/uL (4.30-5.70) Hemoglobin 13.5 g/dL (13.0-17.5) Hematocrit 40.3 % (39.0-53.0) Mean Corpuscular Volume 88 fL (79-100) Mean Corpuscular Hemoglobin 29 pg (25-35) Mean Corpuscular Hemoglobin Concent 33 g/dL (31-37) Red Cell Distribution Width 13.9 % (11.5-14.5) Platelet Count 104 x10^3/uL (140-400) Sodium Level 139 mmol/L (136-145) Potassium Level 4.2 mmol/L (3.5-5.1) Chloride Level 102 mmol/L (98-107) Carbon Dioxide Level 29 mmol/L (21-32) Anion Gap 8 (6-14) Blood Urea Nitrogen 50 mg/dL (8-26) Creatinine 3.6 mg/dL (0.7-1.3) Estimated GFR (Cockcroft-Gault) 21.9 BUN/Creatinine Ratio 14 (6-20) Glucose Level 137 mg/dL (70-99) Calcium Level 6.2 mg/dL (8.5-10.1) Magnesium Level 1.7 mg/dL (1.8-2.4) Total Bilirubin 3.7 mg/dL (0.2-1.0) Aspartate Amino Transf (AST/SGOT) 160 U/L (15-37) Alanine Aminotransferase (ALT/SGPT) 111 U/L (16-63) Alkaline Phosphatase 72 U/L (46-116) Total Protein 6.2 g/dL (6.4-8.2) Albumin 2.7 g/dL (3.4-5.0) Albumin/Globulin Ratio 0.8 (1.0-1.7) Test 06/13/19 20:54 06/13/19 22:06 06/13/19 23:11 06/14/19 00:14 Glucose (Fingerstick) 137 mg/dL (70-99) 141 mg/dL (70-99) 128 mg/dL (70-99) 145 mg/dL (70-99) Test 06/14/19 01:19 06/14/19 02:28 06/14/19 03:31 06/14/19 04:37 Glucose (Fingerstick) 150 mg/dL (70-99) 148 mg/dL (70-99) 149 mg/dL (70-99) 137 mg/dL (70-99) Test 06/14/19 05:25 06/14/19 10:02 White Blood Count 12.8 x10^3/uL (4.0-11.0) Red Blood Count 4.58 x10^6/uL (4.30-5.70) Hemoglobin 13.4 g/dL (13.0-17.5) Hematocrit 40.7 % (39.0-53.0) Mean Corpuscular Volume 89 fL (79-100) Mean Corpuscular Hemoglobin 29 pg (25-35) Mean Corpuscular Hemoglobin Concent 33 g/dL (31-37) Red Cell Distribution Width 14.3 % (11.5-14.5) Platelet Count 112 x10^3/uL (140-400) Neutrophils (%) (Auto) 83 % (31-73) Lymphocytes (%) (Auto) 8 % (24-48) Monocytes (%) (Auto) 9 % (0-9) Eosinophils (%) (Auto) 0 % (0-3) Basophils (%) (Auto) 0 % (0-3) Neutrophils # (Auto) 10.6 x10^3/uL (1.8-7.7) Lymphocytes # (Auto) 1.0 x10^3/uL (1.0-4.8) Monocytes # (Auto) 1.2 x10^3/uL (0.0-1.1) Eosinophils # (Auto) 0.0 x10^3/uL (0.0-0.7) Basophils # (Auto) 0.0 x10^3/uL (0.0-0.2) Sodium Level 139 mmol/L (136-145) Potassium Level 4.8 mmol/L (3.5-5.1) Chloride Level 103 mmol/L (98-107) Carbon Dioxide Level 26 mmol/L (21-32) Anion Gap 10 (6-14) Blood Urea Nitrogen 61 mg/dL (8-26) Creatinine 3.9 mg/dL (0.7-1.3) Estimated GFR (Cockcroft-Gault) 20.0 BUN/Creatinine Ratio 16 (6-20) Glucose Level 156 mg/dL (70-99) Calcium Level < 5.0 mg/dL (8.5-10.1) Total Bilirubin 3.3 mg/dL (0.2-1.0) Aspartate Amino Transf (AST/SGOT) 133 U/L (15-37) Alanine Aminotransferase (ALT/SGPT) 93 U/L (16-63) Alkaline Phosphatase 63 U/L (46-116) Total Protein 5.9 g/dL (6.4-8.2) Albumin 2.5 g/dL (3.4-5.0) Albumin/Globulin Ratio 0.7 (1.0-1.7) Glucose (Fingerstick) 114 mg/dL (70-99) Problem List Problems Medical Problems: (1) Acute pancreatitis Status: Acute (2) Nausea & vomiting Status: Acute Assessment/Plan pancreatitis continue supportive care no acute surgical recs WILL BEJARANO MD Jun 14, 2019 11:20
--- NOTE | 2019-06-14 11:38 | RAD ---
AP abdomen x-ray HISTORY: Nasogastric tube placement. COMPARISON: AP abdomen x-ray June 14, 2019. FINDINGS: Nasogastric tube is abnormally positioned turns retrograde at the gastroesophageal junction with the tip extending retrograde terminating at the midthoracic esophageal region. Right jugular dual-lumen catheter presumably for dialysis tip right atrium. Heart size normal. Left lower lobe opacity given the diaphragm mild left pleural effusion is not excluded. Atelectasis/infiltrate of the right medial lung base also noted. No dilated bowel loops at the upper abdomen. Mild volume of stool within the transverse colon. IMPRESSION: Airspace disease at the lung bases. Abnormal positioning of the nasogastric tube coiled retrograde within the esophagus the tip at the mid thoracic esophagus, this catheter should be repositioned to the stomach prior to using. FOR INTERNAL CODING PURPOSES Critical result: Critical results called to patient's ICU nurse Anais at 06/14/2019 11:35 AM. Read back of report performed. RESULT CODE: (C) Electronically signed by: Juve Ovalle MD (06/14/2019 11:35 AM) [id number]
[2019-06-14] MEDS ORDERED: LIDOCAINE 2% PF 5 ML VIAL. ONE (12:00)
[2019-06-14] MEDS: AA 4.25 %/CALCIUM/LYTES/D5W 1,000 ML IV SCH (12:15)
[2019-06-14] MEDS ORDERED: ETOMIDATE 20 MG/10 ML VIAL. IV ONE ×2 (12:22→13:00)
[2019-06-14] MEDS ORDERED: SUCCINYLCHOLINE 200 MG/10 ML VIAL. ONE (12:22)
[2019-06-14] MEDS ORDERED: MIDAZOLAM HCL/PF 5 MG/5 ML VIAL. ONE (12:48)
[2019-06-14] MEDS ORDERED: fentaNYL PF VIAL 100 MCG/2 ML VIAL ONE (12:48)
--- NOTE | 2019-06-14 12:53 | PDOC ---
Provider Note Provider Note Anesthesia note: Requested for intubation. #8.0 oet with #3 Glidecope without difficulty , good visualization, BSBE at 23 cm at teeth. Positive color change on EtCO2 indicator, secured by Respiratory Therapist. Chest X-ray to be performed. Hemodynamically unstable?: Yes Is patient in severe pain?: Yes Is NPO status required?: Yes Teofilo RATLIFF CRNA Jun 14, 2019 12:53
[2019-06-14] MEDS ORDERED: SUCCINYLCHOLINE 200 MG/10 ML VIAL. IV ONE (13:00)
[2019-06-14] MEDS ORDERED: MIDAZOLAM HCL/PF 5 MG/5 ML VIAL. IV ONE (13:00)
[2019-06-14] MEDS ORDERED: fentaNYL PF VIAL 100 MCG/2 ML VIAL IM ONE (13:00)
[2019-06-14] MEDS: CALCIUM CHLORIDE 2,000 MG in IV NORMAL SALINE 100ML 100 ML IV PRN (13:05)
[2019-06-14] MEDS: MIDAZOLAM HCL 50 MG in IV NORMAL SALINE 50ML 50 ML IV PRN ×2 (13:27→16:54)
--- NOTE | 2019-06-14 13:56 | RAD ---
AP chest x-ray HISTORY: Endotracheal tube, orogastric tube placement. COMPARISON: Chest x-ray June 13, 2019. FINDINGS: Dual-lumen right jugular catheter likely for dialysis tip proximal right atrium stable. Endotracheal tube tip 3 cm above the kang. Nasogastric tube tip left upper quadrant abdomen. Heart size stable. No pneumothorax. Increased opacities at the perihilar lungs and at the lower lobes. Limited visualization of the left diaphragm associated with lower lobe opacity, a mild left pleural effusion cannot be excluded. IMPRESSION: Lines and tubes as described above. Worsening pulmonary infiltrates as described above. Electronically signed by: uJve Ovalle MD (06/14/2019 1:53 PM) [id number]
[2019-06-14 14:14] LABS: BASE EXCESS ABG 0 mmol/L (-3-3); HCO3 ABG 25 mmol/L (21-28); PCO2 ABG 46 mmHg (35-46); PO2 ABG 100 mmHg (75-108); SAT O2 ABG 97 % (92-99)
[2019-06-14 14:26] LABS: FIO2 ABG 60
[2019-06-14] MEDS: ACETAMINOPHEN 650 MG SUPP.RECT. PR PRN (20:37)
[2019-06-14] MEDS: CHLORHEXIDINE 0.12% 15 ML MOUTHWASH. MM SCH (20:37)
[2019-06-14] MEDS ORDERED: DEXTROSE 50% 25 GM / 50ML DISP.SYRIN. IV PRN (23:30)
--- NOTE | 2019-06-14 23:46 | NUR ---
Nursing Note: 1944: Spoke to DOROTA Heredia regarding elevated temp. Orders recieved. 2329: Spoke with Dr. Polk regarding elevated blood sugar and no sliding scale insulin. Report handed off to Ada ONEILL.
[2019-06-15] VITALS (23 sets, daily range): BP systolic 85–131; BP diastolic 54–96
[2019-06-15] MEDS: INSULIN LISPRO 300 UNITS/3 ML VIAL. SQ SCH ×7 (00:11→23:58)
[2019-06-15] MEDS: MIDAZOLAM HCL 50 MG in IV NORMAL SALINE 50ML 50 ML IV PRN ×3 (00:42→17:47)
[2019-06-15] MEDS: AA 4.25 %/CALCIUM/LYTES/D5W 1,000 ML IV SCH ×2 (00:45→11:38)
[2019-06-15] MEDS: ACETAMINOPHEN 650 MG SUPP.RECT. PR PRN ×3 (02:28→21:52)
[2019-06-15] MEDS ORDERED: fentaNYL STANDARD PCA 600 MCG/30 ML PCA.SYRING IV ONE (05:30)
[2019-06-15] MEDS: PANTOPRAZOLE IV PUSH 40 MG VIAL. IVP SCH ×2 (06:28→17:47)
[2019-06-15 07:12] LABS: BASO % 0 % (0-3); EOS # 0.1 x10^3/uL (0.0-0.7); EOS % 1 % (0-3); HEMATOCRIT 33.5 % (39.0-53.0); HEMOGLOBIN 11.5 g/dL (13.0-17.5); LYMPH % 10 % (24-48); MEAN CORPUSCULAR HEMOGLOBIN 30 pg (25-35); MEAN CORPUSCULAR HGB CONC 34 g/dL (31-37); MEAN CORPUSCULAR VOLUME 87 fL (79-100); MONO % 10 % (0-9); NEUT # 7.8 x10^3/uL (1.8-7.7); NEUT % 79 % (31-73); PLATELET COUNT 122 x10^3/uL (140-400); RED BLOOD COUNT 3.85 x10^6/uL (4.30-5.70); RED CELL DISTRIBUTION WIDTH 14.3 % (11.5-14.5); WHITE BLOOD COUNT 9.9 x10^3/uL (4.0-11.0)
[2019-06-15 07:40] LABS: ALBUMIN 2.6 g/dL (3.4-5.0); ALBUMIN/GLOBULIN RATIO 0.8 (1.0-1.7); GFR 23.4; PHOSPHORUS 3.4 mg/dL (2.6-4.7); POTASSIUM 4.3 mmol/L (3.5-5.1); TOTAL BILIRUBIN 4.2 mg/dL (0.2-1.0); TOTAL PROTEIN 5.7 g/dL (6.4-8.2)
[2019-06-15 07:49] LABS: CREATININE 3.3 mg/dL (0.7-1.3)
[2019-06-15] MEDS: DEXMEDETOMIDINE 400 MCG in IV NORMAL SALINE 100ML 96 ML IV PRN ×3 (07:49→16:33)
[2019-06-15 07:51] LABS: BASE EXCESS ABG -2 mmol/L (-3-3); HCO3 ABG 23 mmol/L (21-28); PCO2 ABG 38 mmHg (35-46); PO2 ABG 81 mmHg (75-108); SAT O2 ABG 95 % (92-99)
[2019-06-15 07:52] LABS: FIO2 ABG 40%
[2019-06-15] MEDS ORDERED: INSULIN LISPRO 300 UNITS/3 ML VIAL. SQ SCH (08:00)
--- NOTE | 2019-06-15 08:08 | PDOC ---
Infectious Disease Note Subjective Subjective Now intubated, FiO2 40% Sedated Fevers Tmax 102.6, BC repeated and Zyvox added Vital Sign Vital Signs Vital Signs Date Time Temp Pulse Resp B/P (MAP) Pulse Ox O2 Delivery O2 Flow Rate FiO2 06/15/19 07:41 95 Ventilator 06/15/19 07:32 99.4 94 18 98/64 (75) 99.4 06/14/19 11:00 3.0 Physical Exam PHYSICAL EXAM GENERAL: Sedated, orally intubated on vent, mitts HEENT: Pupils equal, small. OGT/ETT in place NECK: Supple LUNGS: Diminished aeration bases HEART: S1, S2, regular, no murmurs. ABDOMEN: Distended, tight, no guarding to palpation,BS hypoactive : [place] EXTREMITIES: trace edema, no cyanosis. SCDs bilaterally SKIN: Warm, dry. 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 MAINFRAME ARCHITECT: Sedated RIJ/HD catheter (06/13) clean Labs Lab Laboratory Tests Test 06/14/19 10:02 06/14/19 14:00 06/14/19 15:09 06/14/19 17:00 Glucose (Fingerstick) 114 mg/dL (70-99) 132 mg/dL (70-99) O2 Saturation 97 % (92-99) Arterial Blood pH 7.36 (7.35-7.45) Arterial Blood pCO2 at Patient Temp 46 mmHg (35-46) Arterial Blood pO2 at Patient Temp 100 mmHg (75-108) Arterial Blood HCO3 25 mmol/L (21-28) Arterial Blood Base Excess 0 mmol/L (-3-3) FiO2 60 Calcium Level 6.5 mg/dL (8.5-10.1) Test 06/14/19 17:10 06/14/19 23:12 06/15/19 04:30 06/15/19 07:00 Glucose (Fingerstick) 159 mg/dL (70-99) 238 mg/dL (70-99) 226 mg/dL (70-99) White Blood Count 9.9 x10^3/uL (4.0-11.0) Red Blood Count 3.85 x10^6/uL (4.30-5.70) Hemoglobin 11.5 g/dL (13.0-17.5) Hematocrit 33.5 % (39.0-53.0) Mean Corpuscular Volume 87 fL (79-100) Mean Corpuscular Hemoglobin 30 pg (25-35) Mean Corpuscular Hemoglobin Concent 34 g/dL (31-37) Red Cell Distribution Width 14.3 % (11.5-14.5) Platelet Count 122 x10^3/uL (140-400) Neutrophils (%) (Auto) 79 % (31-73) Lymphocytes (%) (Auto) 10 % (24-48) Monocytes (%) (Auto) 10 % (0-9) Eosinophils (%) (Auto) 1 % (0-3) Basophils (%) (Auto) 0 % (0-3) Neutrophils # (Auto) 7.8 x10^3/uL (1.8-7.7) Lymphocytes # (Auto) 1.0 x10^3/uL (1.0-4.8) Monocytes # (Auto) 1.0 x10^3/uL (0.0-1.1) Eosinophils # (Auto) 0.1 x10^3/uL (0.0-0.7) Basophils # (Auto) 0.0 x10^3/uL (0.0-0.2) Sodium Level 138 mmol/L (136-145) Potassium Level 4.3 mmol/L (3.5-5.1) Chloride Level 103 mmol/L (98-107) Carbon Dioxide Level 26 mmol/L (21-32) Anion Gap 9 (6-14) Blood Urea Nitrogen 62 mg/dL (8-26) Creatinine 3.3 mg/dL (0.7-1.3) Estimated GFR (Cockcroft-Gault) 23.4 BUN/Creatinine Ratio 18 (6-20) Glucose Level 209 mg/dL (70-99) Calcium Level 5.0 mg/dL (8.5-10.1) Phosphorus Level 3.4 mg/dL (2.6-4.7) Total Bilirubin 4.2 mg/dL (0.2-1.0) Aspartate Amino Transf (AST/SGOT) 128 U/L (15-37) Alanine Aminotransferase (ALT/SGPT) 66 U/L (16-63) Alkaline Phosphatase 54 U/L (46-116) Total Protein 5.7 g/dL (6.4-8.2) Albumin 2.6 g/dL (3.4-5.0) Albumin/Globulin Ratio 0.8 (1.0-1.7) Test 06/15/19 07:31 06/15/19 07:45 Glucose (Fingerstick) 198 mg/dL (70-99) O2 Saturation 95 % (92-99) Arterial Blood pH 7.40 (7.35-7.45) Arterial Blood pCO2 at Patient Temp 38 mmHg (35-46) Arterial Blood pO2 at Patient Temp 81 mmHg (75-108) Arterial Blood HCO3 23 mmol/L (21-28) Arterial Blood Base Excess -2 mmol/L (-3-3) FiO2 40% Micro Microbiology 06/12/19 Blood Culture - Preliminary, Resulted NO GROWTH AFTER 1 DAY Objective Assessment Fever Sepsis from GI Gallbladder stone pancreatitis. Lactic acidosis. Leukocytosis - better Acute kidney injury requiring dialysis, HDC (06/13) Metabolic acidosis. Hypocalcemia Basilar atelectasis. Plan Plan of Care Continue empiric merrem, renal dosing Zyvox added Renal ,GI and General Surgery following. Plans are for randi this admission BC neg to date Maintain aspiration precaution. D/w nursing Critically ill Attending Co-Sign Attending Co-Sign The patient was seen and examined at the bedside. The chart was reviewed. The case was discussed. Pt condition has deteriorated was intubated on I started on zyvox last night for T >102,remains on merrem on dialysis Consider repeat imaging If condition does not improve, consider transferring to [facility] Agree with the plan of care. D/W TANVI GREEN APRN Jun 15, 2019 08:08 THUY GOODMAN MD Jun 15, 2019 10:39
--- NOTE | 2019-06-15 08:23 | RAD ---
PORTABLE CHEST 1V INDICATION: Intubated. COMPARISON STUDY: 06/14/2019. FINDINGS: Life Support Devices: Stable endotracheal tube, enteric tube, and right IJ dual-lumen catheter. Lungs: Low lung volume. Improving bilateral basilar predominant opacities. Stable pulmonary vasculature. Pleura: Stable small bilateral pleural effusions. Heart and Mediastinum: Stable cardiomediastinal silhouette and great vessels. IMPRESSION: 1. Stable left support devices. 2. Improving bilateral basilar predominant opacities. 3. Stable small bilateral effusions. Electronically signed by: Charlie Mcduffie MD (06/15/2019 8:20 AM) [id number]
--- NOTE | 2019-06-15 08:24 | PDOC ---
SUBJECTIVE ROS F/up for FABIOLA/ATN remains sedated and intubated OBJECTIVE Vital Signs Vital Signs Date Time Temp Pulse Resp B/P (MAP) Pulse Ox O2 Delivery O2 Flow Rate FiO2 06/15/19 07:41 95 Ventilator 06/15/19 07:32 99.4 94 18 98/64 (75) 99.4 06/14/19 11:00 3.0 I & 0 Intake and Output 06/15/19 07:00 Intake Total 1002 ml Output Total 1115 ml Balance -113 ml Intake Oral 0 ml IV Total 1002 ml Output Urine Total 615 ml Gastric Drainage Total 500 ml PHYSICAL EXAM Physical Exam General Appearance: SEdated and intubated in no Distress Eyes: Sclera anicteric Conjunctiva Normal EN: No EN Drainage Mucous Memb. dry - NGT^ in place. Orally intubated Neck: no JVD no JVP Supple no Thyromegaly CVS: S1 S2 no Murmur No Gallop No Rub no Edema - tachy Resp: few basal Rales no Rhonchi min Acc. Muscle use GI: NO BSe NO Bruit + Tender + Distended : no CVA tenderness; no Suprapubic Tenderness DIAGNOSIS/ASSESSMENT Assessment & Plan ARF/ ATN : Watch off of hemodialysis for today. Watch urine output and rebound of creatinine. HyperKalemia -resolved today Sev HypoCalcemia - due to Pancreatitis -unable to correct with dialysis. IV calcium has been ordered. May need IV calcium chloride drip Abd Distention : Intra-abdominal hypertension on last check of bladder pressures. This may be impeding renal function. defer further eval and management to GI and GS Ac. Pancreatitis - NGT in place. SUspect significant 3rd spaced/ sequestration of fluids in GUT. Defer to GI to initiate enteral feeds . COMMENT/RELEVANT DATA Meds Current Medications Medications (Trade) Dose Ordered Sig/Jesse Start Time Stop Time Status Last Admin Dose Admin Acetaminophen (Tylenol Supp) 650 mg PRN Q6HRS PRN 06/14/19 20:00 06/15/19 02:28 650 MG Albumin Human 200 ml @ 200 mls/hr 1X PRN PRN 06/14/19 09:00 06/14/19 14:59 DC 06/14/19 09:40 200 MLS/HR Amino Acids/ Electrolytes/ Dextrose 1,000 ml @ 80 mls/hr [id number] 06/12/19 10:15 Amino Acids/ Glycerin/ Electrolytes 1,000 ml @ 80 mls/hr [id number] 06/12/19 10:00 UNV Atropine Sulfate (ATROPINE 0.5mg SYRINGE) 0.5 mg PRN Q5MIN PRN 06/13/19 19:00 Calcium Chloride 2000 mg/Sodium Chloride 120 ml @ 240 mls/hr PRN QID PRN 06/14/19 10:15 06/14/19 13:05 240 MLS/HR Calcium Gluconate 1000 mg/Sodium Chloride 110 ml @ 220 mls/hr 1X ONCE 06/12/19 19:15 06/12/19 19:44 DC 06/12/19 20:35 220 MLS/HR Chlorhexidine Gluconate (Peridex) 15 ml BID 06/14/19 21:00 06/14/19 20:37 15 ML Dexmedetomidine HCl 400 mcg/ Sodium Chloride 100 ml @ 0 mls/hr CONT PRN 06/13/19 19:00 06/15/19 07:49 10.9 MLS/HR Dextrose (Dextrose 50%-Water Syringe) 12.5 gm PRN Q15MIN PRN 06/14/19 23:30 Etomidate (Amidate) 14 mg 1X ONCE 06/14/19 13:00 06/14/19 13:01 DC 06/14/19 12:59 14 MG Fentanyl Citrate (Fentanyl 2ml Vial) 100 mcg 1X ONCE 06/14/19 13:00 06/14/19 13:01 DC 06/14/19 12:58 100 MCG Furosemide (Lasix) 40 mg 1X ONCE 06/12/19 16:00 06/12/19 16:01 DC 06/12/19 16:13 40 MG Hydralazine HCl (Apresoline Inj) 10 mg PRN Q6HRS PRN 06/11/19 18:15 06/11/19 18:22 10 MG Hydromorphone HCl (Dilaudid) 1 mg PRN Q2HRS PRN 06/11/19 12:00 06/14/19 13:00 2 MG Info (CONTRAST GIVEN -- Rx MONITORING) 1 each PRN DAILY PRN 06/11/19 04:45 06/13/19 04:44 DC Info (PHARMACY MONITORING -- do not chart) 1 each PRN DAILY PRN 06/14/19 09:00 06/14/19 09:06 DC Insulin Human Lispro (HumaLOG) 0-7 UNITS Q4HRS 06/15/19 00:15 06/15/19 07:54 3 UNITS Insulin Human Regular (HumuLIN R VIAL) 10 unit 1X ONCE 06/12/19 16:00 06/12/19 16:01 DC 06/12/19 16:14 10 UNIT Insulin Human Regular 100 unit/ Sodium Chloride 101 ml @ 0 mls/hr CONT PRN 06/13/19 14:15 06/13/19 15:03 7.07 MLS/HR Iohexol (Omnipaque 350 Mg/ml) 100 ml 1X ONCE 06/11/19 04:45 06/11/19 04:46 DC 06/11/19 05:01 100 ML Lidocaine HCl (Buffered Lidocaine 1%) 6 ml 1X ONCE 06/13/19 09:30 06/13/19 09:31 DC 06/13/19 09:23 6 ML Linezolid/Dextrose 300 ml @ 300 mls/hr Q12HR 06/14/19 21:00 06/15/19 07:52 300 MLS/HR Lorazepam (Ativan Inj) 1 mg PRN Q6HRS PRN 06/11/19 18:15 06/14/19 13:00 2 MG Magnesium Sulfate 50 ml @ 25 mls/hr PRN DAILY PRN 06/14/19 10:30 Meropenem 500 mg/ Sodium Chloride 50 ml @ 100 mls/hr Q12HR 06/12/19 21:00 06/14/19 20:37 100 MLS/HR Midazolam HCl (Versed) 5 mg 1X ONCE 06/14/19 13:00 06/14/19 13:01 DC 06/14/19 12:59 5 MG Midazolam HCl 50 mg/Sodium Chloride 50 ml @ 1 mls/hr CONT PRN 06/14/19 12:45 06/15/19 00:42 1 MLS/HR Morphine Sulfate (Morphine Sulfate) 4 mg PRN Q2HR PRN 06/11/19 05:45 06/11/19 11:54 DC 06/11/19 07:37 4 MG Norepinephrine Bitartrate 8 mg/ Dextrose 258 ml @ 20.027 mls/ hr CONT PRN 06/14/19 10:30 06/14/19 10:31 20.027 MLS/HR Nystatin (Nystop) 1 devorah PRN QID PRN 06/11/19 23:15 06/11/19 23:19 1 DEVORAH Ondansetron HCl (Zofran) 4 mg PRN Q8HRS PRN 06/11/19 05:45 06/12/19 05:44 DC 06/12/19 03:29 4 MG Pantoprazole Sodium (PROTONIX VIAL for IV PUSH) 40 mg [id number] 06/13/19 21:00 06/15/19 06:28 40 MG Piperacillin Sod/ Tazobactam Sod (Zosyn Per Pharmacy) 1 each PRN DAILY PRN 06/12/19 13:15 06/12/19 19:16 DC Piperacillin Sod/ Tazobactam Sod 2.25 gm/Sodium Chloride 50 ml @ 100 mls/hr Q6HRS 06/12/19 13:30 06/12/19 19:15 DC 06/12/19 13:48 100 MLS/HR Potassium Chloride/Water 100 ml @ 100 mls/hr Q1H 06/11/19 06:00 06/11/19 07:59 DC 06/11/19 08:41 100 MLS/HR Prochlorperazine Edisylate (Compazine) 10 mg PRN Q8HRS PRN 06/11/19 12:00 06/12/19 14:59 10 MG Sodium Bicarbonate 50 meq/Sodium Chloride 1,050 ml @ 150 mls/hr Q7H 06/12/19 11:00 06/13/19 14:48 DC 06/13/19 04:16 150 MLS/HR Sodium Bicarbonate (Sodium Bicarb Adult 8.4% Syr) 50 meq 1X ONCE 06/12/19 16:00 06/12/19 16:01 DC 06/12/19 16:12 50 MEQ Sodium Chloride 1,000 ml @ 400 mls/hr Q2H30M PRN 06/14/19 08:55 06/14/19 20:54 DC Succinylcholine Chloride (Anectine) 200 mg 1X ONCE 06/14/19 13:00 06/14/19 13:01 DC 06/14/19 12:59 200 MG Lab Laboratory Tests Test 06/14/19 10:02 06/14/19 14:00 06/14/19 15:09 06/14/19 17:00 Glucose (Fingerstick) 114 mg/dL (70-99) 132 mg/dL (70-99) O2 Saturation 97 % (92-99) Arterial Blood pH 7.36 (7.35-7.45) Arterial Blood pCO2 at Patient Temp 46 mmHg (35-46) Arterial Blood pO2 at Patient Temp 100 mmHg (75-108) Arterial Blood HCO3 25 mmol/L (21-28) Arterial Blood Base Excess 0 mmol/L (-3-3) FiO2 60 Calcium Level 6.5 mg/dL (8.5-10.1) Test 06/14/19 17:10 06/14/19 23:12 06/15/19 04:30 06/15/19 07:00 Glucose (Fingerstick) 159 mg/dL (70-99) 238 mg/dL (70-99) 226 mg/dL (70-99) White Blood Count 9.9 x10^3/uL (4.0-11.0) Red Blood Count 3.85 x10^6/uL (4.30-5.70) Hemoglobin 11.5 g/dL (13.0-17.5) Hematocrit 33.5 % (39.0-53.0) Mean Corpuscular Volume 87 fL (79-100) Mean Corpuscular Hemoglobin 30 pg (25-35) Mean Corpuscular Hemoglobin Concent 34 g/dL (31-37) Red Cell Distribution Width 14.3 % (11.5-14.5) Platelet Count 122 x10^3/uL (140-400) Neutrophils (%) (Auto) 79 % (31-73) Lymphocytes (%) (Auto) 10 % (24-48) Monocytes (%) (Auto) 10 % (0-9) Eosinophils (%) (Auto) 1 % (0-3) Basophils (%) (Auto) 0 % (0-3) Neutrophils # (Auto) 7.8 x10^3/uL (1.8-7.7) Lymphocytes # (Auto) 1.0 x10^3/uL (1.0-4.8) Monocytes # (Auto) 1.0 x10^3/uL (0.0-1.1) Eosinophils # (Auto) 0.1 x10^3/uL (0.0-0.7) Basophils # (Auto) 0.0 x10^3/uL (0.0-0.2) Sodium Level 138 mmol/L (136-145) Potassium Level 4.3 mmol/L (3.5-5.1) Chloride Level 103 mmol/L (98-107) Carbon Dioxide Level 26 mmol/L (21-32) Anion Gap 9 (6-14) Blood Urea Nitrogen 62 mg/dL (8-26) Creatinine 3.3 mg/dL (0.7-1.3) Estimated GFR (Cockcroft-Gault) 23.4 BUN/Creatinine Ratio 18 (6-20) Glucose Level 209 mg/dL (70-99) Calcium Level 5.0 mg/dL (8.5-10.1) Phosphorus Level 3.4 mg/dL (2.6-4.7) Total Bilirubin 4.2 mg/dL (0.2-1.0) Aspartate Amino Transf (AST/SGOT) 128 U/L (15-37) Alanine Aminotransferase (ALT/SGPT) 66 U/L (16-63) Alkaline Phosphatase 54 U/L (46-116) Total Protein 5.7 g/dL (6.4-8.2) Albumin 2.6 g/dL (3.4-5.0) Albumin/Globulin Ratio 0.8 (1.0-1.7) Test 06/15/19 07:31 06/15/19 07:45 Glucose (Fingerstick) 198 mg/dL (70-99) O2 Saturation 95 % (92-99) Arterial Blood pH 7.40 (7.35-7.45) Arterial Blood pCO2 at Patient Temp 38 mmHg (35-46) Arterial Blood pO2 at Patient Temp 81 mmHg (75-108) Arterial Blood HCO3 23 mmol/L (21-28) Arterial Blood Base Excess -2 mmol/L (-3-3) FiO2 40% Results All relevant outside records, renal labs, imaging studies, telemetry/EKG's were reviewed. YOGI GOODMAN MD Jun 15, 2019 08:24
[2019-06-15] MEDS: CALCIUM CHLORIDE 2,000 MG in IV NORMAL SALINE 100ML 100 ML IV PRN (08:32)
[2019-06-15] MEDS: CHLORHEXIDINE 0.12% 15 ML MOUTHWASH. MM SCH ×2 (08:32→21:05)
[2019-06-15] MEDS: MEROPENEM 500 MG in IV NORMAL SALINE 50ML 50 ML IV SCH ×2 (09:22→21:06)
[2019-06-15] MEDS ORDERED: NORMAL SALINE IV PRN ×3 (09:30)
[2019-06-15] MEDS ORDERED: CALCIUM GLUCONATE IV PRN ×3 (09:30)
[2019-06-15] MEDS: NORMAL SALINE IV PRN (09:53)
[2019-06-15] MEDS: CALCIUM GLUCONATE IV PRN (09:53)
--- NOTE | 2019-06-15 10:48 | PDOC ---
PROGRESS NOTES History of Present Illness History of Present Illness ASSESSMENT AND PLAN: Acute hypoxemic respiratory failure, Severe pancreatitis. , GALLSTONE pancreatitis Severe biliary pancreatitis. Resp failure Renal failure MORBID OBESITY ACUTE HYPOXIC RESP FAILURE// ARDS HYPERKALEMIA hypocalcemia per nephrology replacement TRANSAMINITIS LACTIC ACIDOSIS SEPSIS VOLUME OVERLOAD HYPERGLYCEMIA, UNCONTROLLED admitted consult GI, IV fluids, p.r.n. antiemetics, home medications, deep venous thrombosis prophylaxis. Full code. nephrology consult gen surgery consult GI CONSULT O2 SUPPORT lactic acid with reflex iv zosyn per pharmacy ID CONSULT BLOOD CULT BICARB DRIP temp dialysis catheter PULM CONSULT INSULIN DRIP 06/14 sedated on vent D/W RN and family in room PROGNOSIS: Guarded. 34 MIN CC TIME Vitals Vitals Vital Signs Date Time Temp Pulse Resp B/P (MAP) Pulse Ox O2 Delivery O2 Flow Rate FiO2 06/15/19 10:05 99.5 91 18 111/66 (81) 96 Ventilator 99.5 06/14/19 11:00 3.0 Physical Exam Physical Exam GENERAL: Sedated, orally intubated on vent, mitts HEENT: Pupils equal, small. OGT/ETT in place NECK: Supple LUNGS: Diminished aeration bases HEART: S1, S2, regular, no murmurs. ABDOMEN: Distended, tight, no guarding to palpation,BS hypoactive : [place] EXTREMITIES: trace edema, no cyanosis. SCDs bilaterally SKIN: Warm, dry. 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 LEAD PASTOR: Sedated RIJ/HD catheter (06/13) clean General: No acute distress Heart: Regular rate, Normal S1 Lungs: Clear, Crackles Abdomen: Soft, Other (mildly distended) Extremities: No clubbing, No cyanosis Skin: No breakdown Labs LABS PORTABLE CHEST 1V INDICATION: Intubated. COMPARISON STUDY: 06/14/2019. FINDINGS: Life Support Devices: Stable endotracheal tube, enteric tube, and right IJ dual-lumen catheter. Lungs: Low lung volume. Improving bilateral basilar predominant opacities. Stable pulmonary vasculature. Pleura: Stable small bilateral pleural effusions. Heart and Mediastinum: Stable cardiomediastinal silhouette and great vessels. IMPRESSION: 1. Stable left support devices. 2. Improving bilateral basilar predominant opacities. 3. Stable small bilateral effusions. Electronically signed by: Shira Mcduffie MD (06/15/2019 8:20 AM) [id number] DICTATED and SIGNED BY: SHIRA MCDUFFIE MD [facility]: THUY GOODMAN MD,KARLA CONKLIN,BERE CASANOVA MD, MD,MARIA L Murillo MD ORDERED: BCULT Procedure Result BLOOD CULTURE Preliminary NO GROWTH AFTER 2 DAYS Laboratory Tests Test 06/14/19 14:00 06/14/19 15:09 06/14/19 17:00 06/14/19 17:10 O2 Saturation 97 % (92-99) Arterial Blood pH 7.36 (7.35-7.45) Arterial Blood pCO2 at Patient Temp 46 mmHg (35-46) Arterial Blood pO2 at Patient Temp 100 mmHg (75-108) Arterial Blood HCO3 25 mmol/L (21-28) Arterial Blood Base Excess 0 mmol/L (-3-3) FiO2 60 Glucose (Fingerstick) 132 mg/dL (70-99) 159 mg/dL (70-99) Calcium Level 6.5 mg/dL (8.5-10.1) Test 06/14/19 23:12 06/15/19 04:30 06/15/19 07:00 06/15/19 07:31 Glucose (Fingerstick) 238 mg/dL (70-99) 226 mg/dL (70-99) 198 mg/dL (70-99) White Blood Count 9.9 x10^3/uL (4.0-11.0) Red Blood Count 3.85 x10^6/uL (4.30-5.70) Hemoglobin 11.5 g/dL (13.0-17.5) Hematocrit 33.5 % (39.0-53.0) Mean Corpuscular Volume 87 fL (79-100) Mean Corpuscular Hemoglobin 30 pg (25-35) Mean Corpuscular Hemoglobin Concent 34 g/dL (31-37) Red Cell Distribution Width 14.3 % (11.5-14.5) Platelet Count 122 x10^3/uL (140-400) Neutrophils (%) (Auto) 79 % (31-73) Lymphocytes (%) (Auto) 10 % (24-48) Monocytes (%) (Auto) 10 % (0-9) Eosinophils (%) (Auto) 1 % (0-3) Basophils (%) (Auto) 0 % (0-3) Neutrophils # (Auto) 7.8 x10^3/uL (1.8-7.7) Lymphocytes # (Auto) 1.0 x10^3/uL (1.0-4.8) Monocytes # (Auto) 1.0 x10^3/uL (0.0-1.1) Eosinophils # (Auto) 0.1 x10^3/uL (0.0-0.7) Basophils # (Auto) 0.0 x10^3/uL (0.0-0.2) Sodium Level 138 mmol/L (136-145) Potassium Level 4.3 mmol/L (3.5-5.1) Chloride Level 103 mmol/L (98-107) Carbon Dioxide Level 26 mmol/L (21-32) Anion Gap 9 (6-14) Blood Urea Nitrogen 62 mg/dL (8-26) Creatinine 3.3 mg/dL (0.7-1.3) Estimated GFR (Cockcroft-Gault) 23.4 BUN/Creatinine Ratio 18 (6-20) Glucose Level 209 mg/dL (70-99) Calcium Level 5.0 mg/dL (8.5-10.1) Phosphorus Level 3.4 mg/dL (2.6-4.7) Total Bilirubin 4.2 mg/dL (0.2-1.0) Aspartate Amino Transf (AST/SGOT) 128 U/L (15-37) Alanine Aminotransferase (ALT/SGPT) 66 U/L (16-63) Alkaline Phosphatase 54 U/L (46-116) Total Protein 5.7 g/dL (6.4-8.2) Albumin 2.6 g/dL (3.4-5.0) Albumin/Globulin Ratio 0.8 (1.0-1.7) Test 06/15/19 07:45 O2 Saturation 95 % (92-99) Arterial Blood pH 7.40 (7.35-7.45) Arterial Blood pCO2 at Patient Temp 38 mmHg (35-46) Arterial Blood pO2 at Patient Temp 81 mmHg (75-108) Arterial Blood HCO3 23 mmol/L (21-28) Arterial Blood Base Excess -2 mmol/L (-3-3) FiO2 40% Assessment and Plan Assessmemt and Plan Problems Medical Problems: (1) Acute pancreatitis Status: Acute (2) Nausea & vomiting Status: Acute Comment Review of Relevant I have reviewed the following items alexandra (where applicable) has been applied. Labs Laboratory Tests Test 06/13/19 11:45 06/13/19 11:59 06/13/19 14:12 06/13/19 16:00 O2 Saturation 95 % (92-99) Arterial Blood pH 7.30 (7.35-7.45) Arterial Blood pCO2 at Patient Temp 38 mmHg (35-46) Arterial Blood pO2 at Patient Temp 77 mmHg (75-108) Arterial Blood HCO3 18 mmol/L (21-28) Arterial Blood Base Excess -7 mmol/L (-3-3) FiO2 32% nc Glucose (Fingerstick) 453 mg/dL (70-99) 408 mg/dL (70-99) 206 mg/dL (70-99) Test 06/13/19 17:11 06/13/19 18:13 06/13/19 19:40 06/13/19 19:51 Glucose (Fingerstick) 153 mg/dL (70-99) 150 mg/dL (70-99) 142 mg/dL (70-99) White Blood Count 11.9 x10^3/uL (4.0-11.0) Red Blood Count 4.57 x10^6/uL (4.30-5.70) Hemoglobin 13.5 g/dL (13.0-17.5) Hematocrit 40.3 % (39.0-53.0) Mean Corpuscular Volume 88 fL (79-100) Mean Corpuscular Hemoglobin 29 pg (25-35) Mean Corpuscular Hemoglobin Concent 33 g/dL (31-37) Red Cell Distribution Width 13.9 % (11.5-14.5) Platelet Count 104 x10^3/uL (140-400) Sodium Level 139 mmol/L (136-145) Potassium Level 4.2 mmol/L (3.5-5.1) Chloride Level 102 mmol/L (98-107) Carbon Dioxide Level 29 mmol/L (21-32) Anion Gap 8 (6-14) Blood Urea Nitrogen 50 mg/dL (8-26) Creatinine 3.6 mg/dL (0.7-1.3) Estimated GFR (Cockcroft-Gault) 21.9 BUN/Creatinine Ratio 14 (6-20) Glucose Level 137 mg/dL (70-99) Calcium Level 6.2 mg/dL (8.5-10.1) Magnesium Level 1.7 mg/dL (1.8-2.4) Total Bilirubin 3.7 mg/dL (0.2-1.0) Aspartate Amino Transf (AST/SGOT) 160 U/L (15-37) Alanine Aminotransferase (ALT/SGPT) 111 U/L (16-63) Alkaline Phosphatase 72 U/L (46-116) Total Protein 6.2 g/dL (6.4-8.2) Albumin 2.7 g/dL (3.4-5.0) Albumin/Globulin Ratio 0.8 (1.0-1.7) Test 06/13/19 20:54 06/13/19 22:06 06/13/19 23:11 06/14/19 00:14 Glucose (Fingerstick) 137 mg/dL (70-99) 141 mg/dL (70-99) 128 mg/dL (70-99) 145 mg/dL (70-99) Test 06/14/19 01:19 06/14/19 02:28 06/14/19 03:31 06/14/19 04:37 Glucose (Fingerstick) 150 mg/dL (70-99) 148 mg/dL (70-99) 149 mg/dL (70-99) 137 mg/dL (70-99) Test 06/14/19 05:25 06/14/19 10:02 06/14/19 14:00 06/14/19 15:09 White Blood Count 12.8 x10^3/uL (4.0-11.0) Red Blood Count 4.58 x10^6/uL (4.30-5.70) Hemoglobin 13.4 g/dL (13.0-17.5) Hematocrit 40.7 % (39.0-53.0) Mean Corpuscular Volume 89 fL (79-100) Mean Corpuscular Hemoglobin 29 pg (25-35) Mean Corpuscular Hemoglobin Concent 33 g/dL (31-37) Red Cell Distribution Width 14.3 % (11.5-14.5) Platelet Count 112 x10^3/uL (140-400) Neutrophils (%) (Auto) 83 % (31-73) Lymphocytes (%) (Auto) 8 % (24-48) Monocytes (%) (Auto) 9 % (0-9) Eosinophils (%) (Auto) 0 % (0-3) Basophils (%) (Auto) 0 % (0-3) Neutrophils # (Auto) 10.6 x10^3/uL (1.8-7.7) Lymphocytes # (Auto) 1.0 x10^3/uL (1.0-4.8) Monocytes # (Auto) 1.2 x10^3/uL (0.0-1.1) Eosinophils # (Auto) 0.0 x10^3/uL (0.0-0.7) Basophils # (Auto) 0.0 x10^3/uL (0.0-0.2) Sodium Level 139 mmol/L (136-145) Potassium Level 4.8 mmol/L (3.5-5.1) Chloride Level 103 mmol/L (98-107) Carbon Dioxide Level 26 mmol/L (21-32) Anion Gap 10 (6-14) Blood Urea Nitrogen 61 mg/dL (8-26) Creatinine 3.9 mg/dL (0.7-1.3) Estimated GFR (Cockcroft-Gault) 20.0 BUN/Creatinine Ratio 16 (6-20) Glucose Level 156 mg/dL (70-99) Calcium Level < 5.0 mg/dL (8.5-10.1) Total Bilirubin 3.3 mg/dL (0.2-1.0) Aspartate Amino Transf (AST/SGOT) 133 U/L (15-37) Alanine Aminotransferase (ALT/SGPT) 93 U/L (16-63) Alkaline Phosphatase 63 U/L (46-116) Total Protein 5.9 g/dL (6.4-8.2) Albumin 2.5 g/dL (3.4-5.0) Albumin/Globulin Ratio 0.7 (1.0-1.7) Glucose (Fingerstick) 114 mg/dL (70-99) 132 mg/dL (70-99) O2 Saturation 97 % (92-99) Arterial Blood pH 7.36 (7.35-7.45) Arterial Blood pCO2 at Patient Temp 46 mmHg (35-46) Arterial Blood pO2 at Patient Temp 100 mmHg (75-108) Arterial Blood HCO3 25 mmol/L (21-28) Arterial Blood Base Excess 0 mmol/L (-3-3) FiO2 60 Test 06/14/19 17:00 06/14/19 17:10 06/14/19 23:12 06/15/19 04:30 Calcium Level 6.5 mg/dL (8.5-10.1) Glucose (Fingerstick) 159 mg/dL (70-99) 238 mg/dL (70-99) 226 mg/dL (70-99) Test 06/15/19 07:00 06/15/19 07:31 06/15/19 07:45 White Blood Count 9.9 x10^3/uL (4.0-11.0) Red Blood Count 3.85 x10^6/uL (4.30-5.70) Hemoglobin 11.5 g/dL (13.0-17.5) Hematocrit 33.5 % (39.0-53.0) Mean Corpuscular Volume 87 fL (79-100) Mean Corpuscular Hemoglobin 30 pg (25-35) Mean Corpuscular Hemoglobin Concent 34 g/dL (31-37) Red Cell Distribution Width 14.3 % (11.5-14.5) Platelet Count 122 x10^3/uL (140-400) Neutrophils (%) (Auto) 79 % (31-73) Lymphocytes (%) (Auto) 10 % (24-48) Monocytes (%) (Auto) 10 % (0-9) Eosinophils (%) (Auto) 1 % (0-3) Basophils (%) (Auto) 0 % (0-3) Neutrophils # (Auto) 7.8 x10^3/uL (1.8-7.7) Lymphocytes # (Auto) 1.0 x10^3/uL (1.0-4.8) Monocytes # (Auto) 1.0 x10^3/uL (0.0-1.1) Eosinophils # (Auto) 0.1 x10^3/uL (0.0-0.7) Basophils # (Auto) 0.0 x10^3/uL (0.0-0.2) Sodium Level 138 mmol/L (136-145) Potassium Level 4.3 mmol/L (3.5-5.1) Chloride Level 103 mmol/L (98-107) Carbon Dioxide Level 26 mmol/L (21-32) Anion Gap 9 (6-14) Blood Urea Nitrogen 62 mg/dL (8-26) Creatinine 3.3 mg/dL (0.7-1.3) Estimated GFR (Cockcroft-Gault) 23.4 BUN/Creatinine Ratio 18 (6-20) Glucose Level 209 mg/dL (70-99) Calcium Level 5.0 mg/dL (8.5-10.1) Phosphorus Level 3.4 mg/dL (2.6-4.7) Total Bilirubin 4.2 mg/dL (0.2-1.0) Aspartate Amino Transf (AST/SGOT) 128 U/L (15-37) Alanine Aminotransferase (ALT/SGPT) 66 U/L (16-63) Alkaline Phosphatase 54 U/L (46-116) Total Protein 5.7 g/dL (6.4-8.2) Albumin 2.6 g/dL (3.4-5.0) Albumin/Globulin Ratio 0.8 (1.0-1.7) Glucose (Fingerstick) 198 mg/dL (70-99) O2 Saturation 95 % (92-99) Arterial Blood pH 7.40 (7.35-7.45) Arterial Blood pCO2 at Patient Temp 38 mmHg (35-46) Arterial Blood pO2 at Patient Temp 81 mmHg (75-108) Arterial Blood HCO3 23 mmol/L (21-28) Arterial Blood Base Excess -2 mmol/L (-3-3) FiO2 40% Laboratory Tests Test 06/14/19 14:00 06/14/19 15:09 06/14/19 17:00 06/14/19 17:10 O2 Saturation 97 % (92-99) Arterial Blood pH 7.36 (7.35-7.45) Arterial Blood pCO2 at Patient Temp 46 mmHg (35-46) Arterial Blood pO2 at Patient Temp 100 mmHg (75-108) Arterial Blood HCO3 25 mmol/L (21-28) Arterial Blood Base Excess 0 mmol/L (-3-3) FiO2 60 Glucose (Fingerstick) 132 mg/dL (70-99) 159 mg/dL (70-99) Calcium Level 6.5 mg/dL (8.5-10.1) Test 06/14/19 23:12 06/15/19 04:30 06/15/19 07:00 06/15/19 07:31 Glucose (Fingerstick) 238 mg/dL (70-99) 226 mg/dL (70-99) 198 mg/dL (70-99) White Blood Count 9.9 x10^3/uL (4.0-11.0) Red Blood Count 3.85 x10^6/uL (4.30-5.70) Hemoglobin 11.5 g/dL (13.0-17.5) Hematocrit 33.5 % (39.0-53.0) Mean Corpuscular Volume 87 fL (79-100) Mean Corpuscular Hemoglobin 30 pg (25-35) Mean Corpuscular Hemoglobin Concent 34 g/dL (31-37) Red Cell Distribution Width 14.3 % (11.5-14.5) Platelet Count 122 x10^3/uL (140-400) Neutrophils (%) (Auto) 79 % (31-73) Lymphocytes (%) (Auto) 10 % (24-48) Monocytes (%) (Auto) 10 % (0-9) Eosinophils (%) (Auto) 1 % (0-3) Basophils (%) (Auto) 0 % (0-3) Neutrophils # (Auto) 7.8 x10^3/uL (1.8-7.7) Lymphocytes # (Auto) 1.0 x10^3/uL (1.0-4.8) Monocytes # (Auto) 1.0 x10^3/uL (0.0-1.1) Eosinophils # (Auto) 0.1 x10^3/uL (0.0-0.7) Basophils # (Auto) 0.0 x10^3/uL (0.0-0.2) Sodium Level 138 mmol/L (136-145) Potassium Level 4.3 mmol/L (3.5-5.1) Chloride Level 103 mmol/L (98-107) Carbon Dioxide Level 26 mmol/L (21-32) Anion Gap 9 (6-14) Blood Urea Nitrogen 62 mg/dL (8-26) Creatinine 3.3 mg/dL (0.7-1.3) Estimated GFR (Cockcroft-Gault) 23.4 BUN/Creatinine Ratio 18 (6-20) Glucose Level 209 mg/dL (70-99) Calcium Level 5.0 mg/dL (8.5-10.1) Phosphorus Level 3.4 mg/dL (2.6-4.7) Total Bilirubin 4.2 mg/dL (0.2-1.0) Aspartate Amino Transf (AST/SGOT) 128 U/L (15-37) Alanine Aminotransferase (ALT/SGPT) 66 U/L (16-63) Alkaline Phosphatase 54 U/L (46-116) Total Protein 5.7 g/dL (6.4-8.2) Albumin 2.6 g/dL (3.4-5.0) Albumin/Globulin Ratio 0.8 (1.0-1.7) Test 06/15/19 07:45 O2 Saturation 95 % (92-99) Arterial Blood pH 7.40 (7.35-7.45) Arterial Blood pCO2 at Patient Temp 38 mmHg (35-46) Arterial Blood pO2 at Patient Temp 81 mmHg (75-108) Arterial Blood HCO3 23 mmol/L (21-28) Arterial Blood Base Excess -2 mmol/L (-3-3) FiO2 40% Microbiology 06/12/19 Blood Culture - Preliminary, Resulted NO GROWTH AFTER 2 DAYS Medications Current Medications Morphine Sulfate (Morphine Sulfate) 4 mg PRN Q15MIN PRN IV/SQ PAIN GREATER THAN 3/10 Last administered on 06/11/19at 04:58; Start 06/11/19 at 04:30; Stop 06/11/19 at 16:47; Status DC Sodium Chloride 1,000 ml @ 1,000 mls/hr Q1H IV Last administered on 06/11/19at 04:34; Start 06/11/19 at 04:30; Stop 06/11/19 at 05:29; Status DC Ondansetron HCl (Zofran) 4 mg 1X ONCE IV Last administered on 06/11/19at 04:33; Start 06/11/19 at 04:30; Stop 06/11/19 at 04:33; Status DC Iohexol (Omnipaque 350 Mg/ml) 100 ml 1X ONCE IV Last administered on 06/11/19at 05:01; Start 06/11/19 at 04:45; Stop 06/11/19 at 04:46; Status DC Info (CONTRAST GIVEN -- Rx MONITORING) 1 each PRN DAILY PRN MC SEE COMMENTS; Start 06/11/19 at 04:45; Stop 06/13/19 at 04:44; Status DC Fentanyl Citrate (Fentanyl 2ml Vial) 100 mcg STK-MED ONCE .ROUTE ; Start 06/11/19 at 04:42; Stop 06/11/19 at 04:42; Status DC Fentanyl Citrate (Fentanyl 2ml Vial) 50 mcg 1X ONCE IVP Last administered on 06/11/19at 04:45; Start 06/11/19 at 05:00; Stop 06/11/19 at 05:01; Status DC Ondansetron HCl (Zofran) 4 mg PRN Q8HRS PRN IV NAUSEA/VOMITING Last administered on 06/12/19at 03:29; Start 06/11/19 at 05:45; Stop 06/12/19 at 05:44; Status DC Morphine Sulfate (Morphine Sulfate) 4 mg PRN Q2HR PRN IV PAIN Last administered on 06/11/19at 07:37; Start 06/11/19 at 05:45; Stop 06/11/19 at 11:54; Status DC Sodium Chloride 1,000 ml @ 150 mls/hr Q6H40M IV Last administered on 06/12/19at 03:28; Start 06/11/19 at 05:45; Stop 06/12/19 at 11:01; Status DC Hydromorphone HCl (Dilaudid) 0.5 mg PRN Q3HRS PRN IV PAIN Last administered on 06/11/19at 08:38; Start 06/11/19 at 05:45; Stop 06/11/19 at 09:12; Status DC Potassium Chloride/Water 100 ml @ 100 mls/hr Q1H IV Last administered on 06/11/19at 08:41; Start 06/11/19 at 06:00; Stop 06/11/19 at 07:59; Status DC Hydromorphone HCl (Dilaudid) 1 mg PRN Q3HRS PRN IV PAIN Last administered on 06/11/19at 09:29; Start 06/11/19 at 09:15; Stop 06/11/19 at 11:54; Status DC Prochlorperazine Edisylate (Compazine) 10 mg PRN Q8HRS PRN IV NAUSEA/VOMITING Last administered on 06/12/19at 14:59; Start 06/11/19 at 12:00 Hydromorphone HCl (Dilaudid) 1 mg PRN Q2HRS PRN IV PAIN Last administered on 06/14/19at 13:00; Start 06/11/19 at 12:00 Pantoprazole Sodium (PROTONIX VIAL for IV PUSH) 40 mg DAILYAC IVP Last administered on 06/12/19at 08:29; Start 06/11/19 at 15:00; Stop 06/12/19 at 16:23; Status DC Lorazepam (Ativan Inj) 1 mg PRN Q6HRS PRN IVP ANXIETY / AGITATION Last administered on 06/14/19at 13:00; Start 06/11/19 at 18:15 Hydralazine HCl (Apresoline Inj) 10 mg PRN Q6HRS PRN IVP ELEVATED BP, SEE COMMENTS Last administered on 06/11/19at 18:22; Start 06/11/19 at 18:15 Nystatin (Nystop) 1 devorah PRN QID PRN TP FUNGAL RASH Last administered on 06/11/19at 23:19; Start 06/11/19 at 23:15 Sodium Chloride 1,000 ml @ 1,000 mls/hr 1X ONCE IV Last administered on 06/12/19at 05:27; Start 06/12/19 at 06:00; Stop 06/12/19 at 06:59; Status DC Sodium Chloride 1,000 ml @ 1,000 mls/hr 1X ONCE IV Last administered on 06/12/19at 05:25; Start 06/12/19 at 05:00; Stop 06/12/19 at 05:59; Status DC Sodium Chloride 1,000 ml @ 200 mls/hr Q5H IV Last administered on 06/12/19at 06:36; Start 06/12/19 at 07:00; Stop 06/12/19 at 11:01; Status DC Sodium Bicarbonate 50 meq/Sodium Chloride 1,050 ml @ 150 mls/hr Q7H IV Last administered on 06/13/19at 04:16; Start 06/12/19 at 11:00; Stop 06/13/19 at 14:48; Status DC Amino Acids/ Glycerin/ Electrolytes 1,000 ml @ 80 mls/hr [id number] IV ; Start 06/12/19 at 10:00; Status UNV Amino Acids/ Electrolytes/ Dextrose 1,000 ml @ 80 mls/hr [id number] IV ; Start 06/12/19 at 10:15 Piperacillin Sod/ Tazobactam Sod (Zosyn Per Pharmacy) 1 each PRN DAILY PRN MC SEE COMMENTS; Start 06/12/19 at 13:15; Stop 06/12/19 at 19:16; Status DC Piperacillin Sod/ Tazobactam Sod 2.25 gm/Sodium Chloride 50 ml @ 100 mls/hr Q6HRS IV Last administered on 06/12/19at 13:48; Start 06/12/19 at 13:30; Stop 06/12/19 at 19:15; Status DC Sodium Bicarbonate (Sodium Bicarb Adult 8.4% Syr) 50 meq 1X ONCE IV Last administered on 06/12/19at 16:12; Start 06/12/19 at 16:00; Stop 06/12/19 at 16:01; Status DC Calcium Gluconate 1000 mg/Sodium Chloride 110 ml @ 220 mls/hr 1X ONCE IV Last administered on 06/12/19at 16:13; Start 06/12/19 at 16:00; Stop 06/12/19 at 16:29; Status DC Dextrose (Dextrose 50%-Water Syringe) 25 gm 1X ONCE IV Last administered on 06/12/19at 16:13; Start 06/12/19 at 16:00; Stop 06/12/19 at 16:01; Status DC Insulin Human Regular (HumuLIN R VIAL) 10 unit 1X ONCE IV Last administered on 06/12/19at 16:14; Start 06/12/19 at 16:00; Stop 06/12/19 at 16:01; Status DC Furosemide (Lasix) 40 mg 1X ONCE IVP Last administered on 06/12/19at 16:13; Start 06/12/19 at 16:00; Stop 06/12/19 at 16:01; Status DC Pantoprazole Sodium (PROTONIX VIAL for IV PUSH) 40 mg [id number] IVP Last administered on 06/13/19at 06:21; Start 06/12/19 at 18:00; Stop 06/13/19 at 18:49; Status DC Meropenem 500 mg/ Sodium Chloride 50 ml @ 100 mls/hr Q12HR IV Last administered on 06/15/19at 09:22; Start 06/12/19 at 21:00 Calcium Gluconate 1000 mg/Sodium Chloride 110 ml @ 220 mls/hr 1X ONCE IV Last administered on 06/12/19at 20:35; Start 06/12/19 at 19:15; Stop 06/12/19 at 19:44; Status DC Lidocaine HCl (Buffered Lidocaine 1%) 3 ml STK-MED ONCE .ROUTE ; Start 06/13/19 at 08:47; Stop 06/13/19 at 08:47; Status DC Lidocaine HCl (Buffered Lidocaine 1%) 6 ml 1X ONCE INJ Last administered on 06/13/19at 09:23; Start 06/13/19 at 09:30; Stop 06/13/19 at 09:31; Status DC Insulin Human Lispro (HumaLOG) 0-7 UNITS TIDWMEALS SQ Last administered on 06/13/19at 12:14; Start 06/13/19 at 12:00; Stop 06/14/19 at 23:29; Status DC Dextrose (Dextrose 50%-Water Syringe) 12.5 gm PRN Q15MIN PRN IV SEE COMMENTS; Start 06/13/19 at 11:15; Stop 06/14/19 at 23:29; Status DC Insulin Human Regular 100 unit/ Sodium Chloride 101 ml @ 0 mls/hr CONT PRN IV SEE I/O RECORD Last administered on 06/13/19at 15:03; Start 06/13/19 at 14:15 Sodium Chloride 1,000 ml @ 1,000 mls/hr Q1H PRN IV hypotension; Start 06/13/19 at 14:00; Stop 06/13/19 at 19:59; Status DC Sodium Chloride 1,000 ml @ 400 mls/hr Q2H30M PRN IV PATENCY; Start 06/13/19 at 14:00; Stop 06/14/19 at 01:59; Status DC Info (PHARMACY MONITORING -- do not chart) 1 each PRN DAILY PRN MC SEE COMMENTS; Start 06/13/19 at 14:45; Stop 06/13/19 at 14:51; Status DC Info (PHARMACY MONITORING -- do not chart) 1 each PRN DAILY PRN MC SEE COMMENTS; Start 06/13/19 at 14:45 Pantoprazole Sodium (PROTONIX VIAL for IV PUSH) 40 mg [id number] IVP Last admini stered on 06/15/19at 06:28; Start 06/13/19 at 21:00 Dexmedetomidine HCl 400 mcg/ Sodium Chloride 100 ml @ 0 mls/hr CONT PRN IV PER PROTOCOL Last administered on 06/15/19at 07:49; Start 06/13/19 at 19:00 Sodium Chloride 500 ml @ 500 mls/hr 1X PRN PRN IV SEE COMMENTS; Start 06/13/19 at 19:00 Atropine Sulfate (ATROPINE 0.5mg SYRINGE) 0.5 mg PRN Q5MIN PRN IV SEE COMMENTS; Start 06/13/19 at 19:00 Sodium Chloride 1,000 ml @ 1,000 mls/hr Q1H PRN IV hypotension; Start 06/14/19 at 08:55; Stop 06/14/19 at 14:54; Status DC Albumin Human 200 ml @ 200 mls/hr 1X PRN PRN IV Hypotension Last administered on 06/14/19at 09:40; Start 06/14/19 at 09:00; Stop 06/14/19 at 14:59; Status DC Sodium Chloride 1,000 ml @ 400 mls/hr Q2H30M PRN IV PATENCY; Start 06/14/19 at 08:55; Stop 06/14/19 at 20:54; Status DC Info (PHARMACY MONITORING -- do not chart) 1 each PRN DAILY PRN MC SEE COMMENTS; Start 06/14/19 at 09:00; Stop 06/14/19 at 09:06; Status DC Info (PHARMACY MONITORING -- do not chart) 1 each PRN DAILY PRN MC SEE COMMENTS ; Start 06/14/19 at 09:00; Stop 06/14/19 at 09:06; Status DC Calcium Chloride 2000 mg/Sodium Chloride 120 ml @ 240 mls/hr PRN QID PRN IV for CALCIUM < 5.8 Last administered on 06/15/19at 08:32; Start 06/14/19 at 10:15; Stop 06/15/19 at 09:58; Status DC Magnesium Sulfate 50 ml @ 25 mls/hr PRN DAILY PRN IV for Mag < 1.7 on am labs; Start 06/14/19 at 10:30 Norepinephrine Bitartrate 8 mg/ Dextrose 258 ml @ 20.027 mls/ hr CONT PRN IV PER PROTOCOL Last administered on 06/14/19at 10:31; Start 06/14/19 at 10:30 Succinylcholine Chloride (Anectine) 200 mg STK-MED ONCE .ROUTE ; Start 06/14/19 at 12:22; Stop 06/14/19 at 12:23; Status DC Etomidate (Amidate) 20 mg STK-MED ONCE IV ; Start 06/14/19 at 12:22; Stop 06/14/19 at 12:23; Status DC Fentanyl Citrate 30 ml @ 2.5 mls/hr CONT PRN IV SEE PROTOCOL Last administered on 06/14/19at 23:38; Start 06/14/19 at 12:45 Chlorhexidine Gluconate (Peridex) 15 ml BID MM Last administered on 06/15/19at 08:32; Start 06/14/19 at 21:00 Midazolam HCl 50 mg/Sodium Chloride 50 ml @ 1 mls/hr CONT PRN IV SEE PROTOCOL Last administered on 06/15/19at 09:22; Start 06/14/19 at 12:45 Midazolam HCl (Versed) 5 mg STK-MED ONCE .ROUTE ; Start 06/14/19 at 12:48; Stop 06/14/19 at 12:48; Status DC Fentanyl Citrate (Fentanyl 2ml Vial) 100 mcg STK-MED ONCE .ROUTE ; Start 06/14/19 at 12:48; Stop 06/14/19 at 12:48; Status DC Midazolam HCl (Versed) 5 mg 1X ONCE IV Last administered on 06/14/19at 12:59; Start 06/14/19 at 13:00; Stop 06/14/19 at 13:01; Status DC Fentanyl Citrate (Fentanyl 2ml Vial) 100 mcg 1X ONCE IM Last administered on 06/14/19at 12:58; Start 06/14/19 at 13:00; Stop 06/14/19 at 13:01; Status DC Succinylcholine Chloride (Anectine) 200 mg 1X ONCE IV Last administered on 06/14/19at 12:59; Start 06/14/19 at 13:00; Stop 06/14/19 at 13:01; Status DC Etomidate (Amidate) 14 mg 1X ONCE IV Last administered on 06/14/19at 12:59; Start 06/14/19 at 13:00; Stop 06/14/19 at 13:01; Status DC Acetaminophen (Tylenol Supp) 650 mg PRN Q6HRS PRN SD MILD PAIN / TEMP Last administered on 06/15/19at 02:28; Start 06/14/19 at 20:00 Linezolid/Dextrose 300 ml @ 300 mls/hr Q12HR IV Last administered on 06/15/19at 07:52; Start 06/14/19 at 21:00 Insulin Human Lispro (HumaLOG) 0-7 UNITS TIDWMEALS SQ ; Start 06/15/19 at 08:00; Stop 06/15/19 at 00:03; Status DC Dextrose (Dextrose 50%-Water Syringe) 12.5 gm PRN Q15MIN PRN IV SEE COMMENTS; Start 06/14/19 at 23:30 Insulin Human Lispro (HumaLOG) 0-7 UNITS Q4HRS SQ Last administered on 06/15/19at 07:54; Start 06/15/19 at 00:15 Calcium Gluconate 61698 mg/Sodium Chloride 494 ml @ 4.051 mls/ hr CONT PRN IV SYMPTOMATIC HYPOCALCEMIA; Start 06/15/19 at 09:30; Stop 06/15/19 at 09:23; Status DC Calcium Gluconate 5000 mg/Sodium Chloride 260 ml @ 5.543 mls/ hr CONT PRN IV SYMPTOMATIC HYPOCALCEMIA; Start 06/15/19 at 09:30; Stop 06/15/19 at 09:26; Status DC Calcium Gluconate 5000 mg/Sodium Chloride 260 ml @ 5.543 mls/ hr CONT PRN IV SYMPTOMATIC HYPOCALCEMIA; Start 06/15/19 at 09:30; Stop 06/15/19 at 09:29; Status DC Calcium Gluconate 5000 mg/Sodium Chloride 250 ml @ 5.33 mls/hr CONT PRN IV SYMPTOMATIC HYPOCALCEMIA Last administered on 06/15/19at 09:53; Start 06/15/19 at 09:30 Active Scripts Active Vitals/I & O Vital Sign - Last 24 Hours 06/14/19 06/14/19 06/14/19 06/14/19 11:00 12:00 12:00 12:30 Temp 99.8 99.8 Pulse 96 101 Resp 25 19 B/P (MAP) 94/65 (75) 115/51 (72) Pulse Ox 99 96 93 O2 Delivery Nasal Cannula Ventilator Mechanical Ventilator Ventilator O2 Flow Rate 3.0 06/14/19 06/14/19 06/14/19 06/14/19 12:58 13:00 13:26 13:30 Pulse 100 Resp 12 18 18 19 B/P (MAP) 112/60 (77) Pulse Ox 94 94 94 O2 Delivery Ventilator Ventilator Ventilator Ventilator 06/14/19 06/14/19 06/14/19 06/14/19 13:30 13:54 14:00 15:00 Pulse 99 99 Resp 19 19 18 18 B/P (MAP) 112/63 (79) 117/57 (77) Pulse Ox 94 94 98 96 O2 Delivery Ventilator Ventilator Ventilator Ventilator 06/14/19 06/14/19 06/14/19 06/14/19 15:32 16:00 16:00 16:44 Temp 99.4 99.4 Pulse 97 Resp 19 B/P (MAP) 108/59 (75) Pulse Ox 95 96 95 O2 Delivery Ventilator Ventilator Mechanical Ventilator Ventilator 06/14/19 06/14/19 06/14/19 06/14/19 17:00 18:00 18:46 19:00 Pulse 101 101 111 Resp 17 17 20 19 B/P (MAP) 104/59 (74) 113/59 (77) 109/61 (77) Pulse Ox 96 95 95 95 O2 Delivery Ventilator Ventilator Ventilator Ventilator 06/14/19 06/14/19 06/14/19 06/14/19 20:00 20:00 20:00 20:16 Temp 102.2 102.2 Pulse 116 Resp 19 B/P (MAP) 104/64 (77) Pulse Ox 95 95 O2 Delivery Ventilator Mechanical Ventilator Ventilator 06/14/19 06/14/19 06/14/19 06/14/19 21:00 22:00 23:00 23:38 Pulse 129 122 121 Resp 17 17 17 B/P (MAP) 115/63 (80) 120/60 (80) 105/65 (78) Pulse Ox 93 94 95 95 O2 Delivery Ventilator Ventilator Ventilator 06/14/19 06/14/19 06/15/19 06/15/19 23:45 23:59 00:00 00:27 Temp 102.6 102.6 Pulse 118 118 Resp 22 12 B/P (MAP) 122/70 (87) 122/70 (87) Pulse Ox 94 94 94 O2 Delivery Mechanical Ventilator Ventilator Ventilator Ventilator 06/15/19 06/15/19 06/15/19 06/15/19 01:00 02:00 02:37 03:00 Temp 101.8 101.5 101.3 101.8 101.5 101.3 Pulse 114 110 108 Resp 22 20 B/P (MAP) 98/67 (77) 97/62 (74) 99/57 (71) Pulse Ox 94 95 94 96 O2 Delivery Ventilator Ventilator Ventilator Ventilator 06/15/19 06/15/19 06/15/19 06/15/19 04:00 04:00 04:44 05:00 Temp 100.8 100.8 Pulse 103 92 Resp 20 18 B/P (MAP) 85/61 (69) 109/87 (94) Pulse Ox 96 97 98 O2 Delivery Mechanical Ventilator Ventilator Ventilator Ventilator 06/15/19 06/15/19 06/15/19 06/15/19 05:37 06:00 07:00 07:32 Temp 99.4 99.4 Pulse 94 92 94 Resp 18 18 18 B/P (MAP) 113/77 (89) 102/59 (73) 98/64 (75) Pulse Ox 97 97 95 95 O2 Delivery Ventilator Ventilator Ventilator Ventilator 06/15/19 06/15/19 06/15/19 06/15/19 07:41 08:14 09:10 09:44 Pulse 92 Resp 16 B/P (MAP) 96/54 (68) Pulse Ox 95 96 96 O2 Delivery Ventilator Mechanical Ventilator Ventilator Ventilator 06/15/19 10:05 Temp 99.5 99.5 Pulse 91 Resp 18 B/P (MAP) 111/66 (81) Pulse Ox 96 O2 Delivery Ventilator Intake and Output 06/14/19 06/14/19 06/15/19 15:00 23:00 07:00 Intake Total 749 ml 253 ml Output Total 255 ml 860 ml Balance 494 ml -607 ml Hemodynamically unstable?: Yes Is patient in severe pain?: Yes Is NPO status required?: Yes JERSON AVILES MD Jun 15, 2019 10:48
--- NOTE | 2019-06-15 11:11 | PDOC ---
PULMONARY PROGRESS NOTES Subjective INTUBATED SEC TO ENCEPHALOPATHY AND DECREASE SAT Vitals Vital Signs Date Time Temp Pulse Resp B/P (MAP) Pulse Ox O2 Delivery O2 Flow Rate FiO2 06/15/19 10:05 99.5 91 18 111/66 (81) 96 Ventilator 99.5 06/14/19 11:00 3.0 Lungs: Clear, Crackles Cardiovascular: S1, S2 Abdomen: Other (TENDER AND DISTENDED) Extremities: Other Skin: Warm Labs Laboratory Tests Test 06/13/19 11:45 06/13/19 11:59 06/13/19 14:12 06/13/19 16:00 O2 Saturation 95 % (92-99) Arterial Blood pH 7.30 (7.35-7.45) Arterial Blood pCO2 at Patient Temp 38 mmHg (35-46) Arterial Blood pO2 at Patient Temp 77 mmHg (75-108) Arterial Blood HCO3 18 mmol/L (21-28) Arterial Blood Base Excess -7 mmol/L (-3-3) FiO2 32% nc Glucose (Fingerstick) 453 mg/dL (70-99) 408 mg/dL (70-99) 206 mg/dL (70-99) Test 06/13/19 17:11 06/13/19 18:13 06/13/19 19:40 06/13/19 19:51 Glucose (Fingerstick) 153 mg/dL (70-99) 150 mg/dL (70-99) 142 mg/dL (70-99) White Blood Count 11.9 x10^3/uL (4.0-11.0) Red Blood Count 4.57 x10^6/uL (4.30-5.70) Hemoglobin 13.5 g/dL (13.0-17.5) Hematocrit 40.3 % (39.0-53.0) Mean Corpuscular Volume 88 fL (79-100) Mean Corpuscular Hemoglobin 29 pg (25-35) Mean Corpuscular Hemoglobin Concent 33 g/dL (31-37) Red Cell Distribution Width 13.9 % (11.5-14.5) Platelet Count 104 x10^3/uL (140-400) Sodium Level 139 mmol/L (136-145) Potassium Level 4.2 mmol/L (3.5-5.1) Chloride Level 102 mmol/L (98-107) Carbon Dioxide Level 29 mmol/L (21-32) Anion Gap 8 (6-14) Blood Urea Nitrogen 50 mg/dL (8-26) Creatinine 3.6 mg/dL (0.7-1.3) Estimated GFR (Cockcroft-Gault) 21.9 BUN/Creatinine Ratio 14 (6-20) Glucose Level 137 mg/dL (70-99) Calcium Level 6.2 mg/dL (8.5-10.1) Magnesium Level 1.7 mg/dL (1.8-2.4) Total Bilirubin 3.7 mg/dL (0.2-1.0) Aspartate Amino Transf (AST/SGOT) 160 U/L (15-37) Alanine Aminotransferase (ALT/SGPT) 111 U/L (16-63) Alkaline Phosphatase 72 U/L (46-116) Total Protein 6.2 g/dL (6.4-8.2) Albumin 2.7 g/dL (3.4-5.0) Albumin/Globulin Ratio 0.8 (1.0-1.7) Test 06/13/19 20:54 06/13/19 22:06 06/13/19 23:11 06/14/19 00:14 Glucose (Fingerstick) 137 mg/dL (70-99) 141 mg/dL (70-99) 128 mg/dL (70-99) 145 mg/dL (70-99) Test 06/14/19 01:19 06/14/19 02:28 06/14/19 03:31 06/14/19 04:37 Glucose (Fingerstick) 150 mg/dL (70-99) 148 mg/dL (70-99) 149 mg/dL (70-99) 137 mg/dL (70-99) Test 06/14/19 05:25 06/14/19 10:02 06/14/19 14:00 06/14/19 15:09 White Blood Count 12.8 x10^3/uL (4.0-11.0) Red Blood Count 4.58 x10^6/uL (4.30-5.70) Hemoglobin 13.4 g/dL (13.0-17.5) Hematocrit 40.7 % (39.0-53.0) Mean Corpuscular Volume 89 fL (79-100) Mean Corpuscular Hemoglobin 29 pg (25-35) Mean Corpuscular Hemoglobin Concent 33 g/dL (31-37) Red Cell Distribution Width 14.3 % (11.5-14.5) Platelet Count 112 x10^3/uL (140-400) Neutrophils (%) (Auto) 83 % (31-73) Lymphocytes (%) (Auto) 8 % (24-48) Monocytes (%) (Auto) 9 % (0-9) Eosinophils (%) (Auto) 0 % (0-3) Basophils (%) (Auto) 0 % (0-3) Neutrophils # (Auto) 10.6 x10^3/uL (1.8-7.7) Lymphocytes # (Auto) 1.0 x10^3/uL (1.0-4.8) Monocytes # (Auto) 1.2 x10^3/uL (0.0-1.1) Eosinophils # (Auto) 0.0 x10^3/uL (0.0-0.7) Basophils # (Auto) 0.0 x10^3/uL (0.0-0.2) Sodium Level 139 mmol/L (136-145) Potassium Level 4.8 mmol/L (3.5-5.1) Chloride Level 103 mmol/L (98-107) Carbon Dioxide Level 26 mmol/L (21-32) Anion Gap 10 (6-14) Blood Urea Nitrogen 61 mg/dL (8-26) Creatinine 3.9 mg/dL (0.7-1.3) Estimated GFR (Cockcroft-Gault) 20.0 BUN/Creatinine Ratio 16 (6-20) Glucose Level 156 mg/dL (70-99) Calcium Level < 5.0 mg/dL (8.5-10.1) Total Bilirubin 3.3 mg/dL (0.2-1.0) Aspartate Amino Transf (AST/SGOT) 133 U/L (15-37) Alanine Aminotransferase (ALT/SGPT) 93 U/L (16-63) Alkaline Phosphatase 63 U/L (46-116) Total Protein 5.9 g/dL (6.4-8.2) Albumin 2.5 g/dL (3.4-5.0) Albumin/Globulin Ratio 0.7 (1.0-1.7) Glucose (Fingerstick) 114 mg/dL (70-99) 132 mg/dL (70-99) O2 Saturation 97 % (92-99) Arterial Blood pH 7.36 (7.35-7.45) Arterial Blood pCO2 at Patient Temp 46 mmHg (35-46) Arterial Blood pO2 at Patient Temp 100 mmHg (75-108) Arterial Blood HCO3 25 mmol/L (21-28) Arterial Blood Base Excess 0 mmol/L (-3-3) FiO2 60 Test 06/14/19 17:00 06/14/19 17:10 06/14/19 23:12 06/15/19 04:30 Calcium Level 6.5 mg/dL (8.5-10.1) Glucose (Fingerstick) 159 mg/dL (70-99) 238 mg/dL (70-99) 226 mg/dL (70-99) Test 06/15/19 07:00 06/15/19 07:31 06/15/19 07:45 White Blood Count 9.9 x10^3/uL (4.0-11.0) Red Blood Count 3.85 x10^6/uL (4.30-5.70) Hemoglobin 11.5 g/dL (13.0-17.5) Hematocrit 33.5 % (39.0-53.0) Mean Corpuscular Volume 87 fL (79-100) Mean Corpuscular Hemoglobin 30 pg (25-35) Mean Corpuscular Hemoglobin Concent 34 g/dL (31-37) Red Cell Distribution Width 14.3 % (11.5-14.5) Platelet Count 122 x10^3/uL (140-400) Neutrophils (%) (Auto) 79 % (31-73) Lymphocytes (%) (Auto) 10 % (24-48) Monocytes (%) (Auto) 10 % (0-9) Eosinophils (%) (Auto) 1 % (0-3) Basophils (%) (Auto) 0 % (0-3) Neutrophils # (Auto) 7.8 x10^3/uL (1.8-7.7) Lymphocytes # (Auto) 1.0 x10^3/uL (1.0-4.8) Monocytes # (Auto) 1.0 x10^3/uL (0.0-1.1) Eosinophils # (Auto) 0.1 x10^3/uL (0.0-0.7) Basophils # (Auto) 0.0 x10^3/uL (0.0-0.2) Sodium Level 138 mmol/L (136-145) Potassium Level 4.3 mmol/L (3.5-5.1) Chloride Level 103 mmol/L (98-107) Carbon Dioxide Level 26 mmol/L (21-32) Anion Gap 9 (6-14) Blood Urea Nitrogen 62 mg/dL (8-26) Creatinine 3.3 mg/dL (0.7-1.3) Estimated GFR (Cockcroft-Gault) 23.4 BUN/Creatinine Ratio 18 (6-20) Glucose Level 209 mg/dL (70-99) Calcium Level 5.0 mg/dL (8.5-10.1) Phosphorus Level 3.4 mg/dL (2.6-4.7) Total Bilirubin 4.2 mg/dL (0.2-1.0) Aspartate Amino Transf (AST/SGOT) 128 U/L (15-37) Alanine Aminotransferase (ALT/SGPT) 66 U/L (16-63) Alkaline Phosphatase 54 U/L (46-116) Total Protein 5.7 g/dL (6.4-8.2) Albumin 2.6 g/dL (3.4-5.0) Albumin/Globulin Ratio 0.8 (1.0-1.7) Glucose (Fingerstick) 198 mg/dL (70-99) O2 Saturation 95 % (92-99) Arterial Blood pH 7.40 (7.35-7.45) Arterial Blood pCO2 at Patient Temp 38 mmHg (35-46) Arterial Blood pO2 at Patient Temp 81 mmHg (75-108) Arterial Blood HCO3 23 mmol/L (21-28) Arterial Blood Base Excess -2 mmol/L (-3-3) FiO2 40% Laboratory Tests Test 06/14/19 14:00 06/14/19 15:09 06/14/19 17:00 06/14/19 17:10 O2 Saturation 97 % (92-99) Arterial Blood pH 7.36 (7.35-7.45) Arterial Blood pCO2 at Patient Temp 46 mmHg (35-46) Arterial Blood pO2 at Patient Temp 100 mmHg (75-108) Arterial Blood HCO3 25 mmol/L (21-28) Arterial Blood Base Excess 0 mmol/L (-3-3) FiO2 60 Glucose (Fingerstick) 132 mg/dL (70-99) 159 mg/dL (70-99) Calcium Level 6.5 mg/dL (8.5-10.1) Test 06/14/19 23:12 06/15/19 04:30 06/15/19 07:00 06/15/19 07:31 Glucose (Fingerstick) 238 mg/dL (70-99) 226 mg/dL (70-99) 198 mg/dL (70-99) White Blood Count 9.9 x10^3/uL (4.0-11.0) Red Blood Count 3.85 x10^6/uL (4.30-5.70) Hemoglobin 11.5 g/dL (13.0-17.5) Hematocrit 33.5 % (39.0-53.0) Mean Corpuscular Volume 87 fL (79-100) Mean Corpuscular Hemoglobin 30 pg (25-35) Mean Corpuscular Hemoglobin Concent 34 g/dL (31-37) Red Cell Distribution Width 14.3 % (11.5-14.5) Platelet Count 122 x10^3/uL (140-400) Neutrophils (%) (Auto) 79 % (31-73) Lymphocytes (%) (Auto) 10 % (24-48) Monocytes (%) (Auto) 10 % (0-9) Eosinophils (%) (Auto) 1 % (0-3) Basophils (%) (Auto) 0 % (0-3) Neutrophils # (Auto) 7.8 x10^3/uL (1.8-7.7) Lymphocytes # (Auto) 1.0 x10^3/uL (1.0-4.8) Monocytes # (Auto) 1.0 x10^3/uL (0.0-1.1) Eosinophils # (Auto) 0.1 x10^3/uL (0.0-0.7) Basophils # (Auto) 0.0 x10^3/uL (0.0-0.2) Sodium Level 138 mmol/L (136-145) Potassium Level 4.3 mmol/L (3.5-5.1) Chloride Level 103 mmol/L (98-107) Carbon Dioxide Level 26 mmol/L (21-32) Anion Gap 9 (6-14) Blood Urea Nitrogen 62 mg/dL (8-26) Creatinine 3.3 mg/dL (0.7-1.3) Estimated GFR (Cockcroft-Gault) 23.4 BUN/Creatinine Ratio 18 (6-20) Glucose Level 209 mg/dL (70-99) Calcium Level 5.0 mg/dL (8.5-10.1) Phosphorus Level 3.4 mg/dL (2.6-4.7) Total Bilirubin 4.2 mg/dL (0.2-1.0) Aspartate Amino Transf (AST/SGOT) 128 U/L (15-37) Alanine Aminotransferase (ALT/SGPT) 66 U/L (16-63) Alkaline Phosphatase 54 U/L (46-116) Total Protein 5.7 g/dL (6.4-8.2) Albumin 2.6 g/dL (3.4-5.0) Albumin/Globulin Ratio 0.8 (1.0-1.7) Test 06/15/19 07:45 O2 Saturation 95 % (92-99) Arterial Blood pH 7.40 (7.35-7.45) Arterial Blood pCO2 at Patient Temp 38 mmHg (35-46) Arterial Blood pO2 at Patient Temp 81 mmHg (75-108) Arterial Blood HCO3 23 mmol/L (21-28) Arterial Blood Base Excess -2 mmol/L (-3-3) FiO2 40% Medications Active Scripts Medications Dose Route/Sig Max Daily Dose Days Date Category Impression . IMPRESSION: 1. Acute hypoxemic respiratory failure, multifactorial. 2. Acute gallstone pancreatitis. 3. Acute kidney failure. 4. Metabolic toxic encephalopathy. 5. Hyperkalemia. 6. Metabolic acidosis. 7. Hypocalcemia. 8. POSSIBLE ABD COMPARTMENT SYNDROME 9. HYPOCALCEMIA ID Plan Plan of Care Continue empiric merrem, renal dosing Zyvox added Renal ,GI and General Surgery following. Plans are for randi this admission BC neg to date Maintain aspiration precaution. Plan . AC MODE CHECK BLADDER PRESSURE SUPPORT WITH ANTI BX IV FLUID REPLACE CA HS OVERALL PROGNOSIS IS GUARDED AT THIS TIME CCT 35 D/W DESTINI FARIAS MD Jun 15, 2019 11:10
--- NOTE | 2019-06-15 11:29 | PDOC ---
G I PROGRESS NOTE Subjective Sedated on ventilator. Physical Exam Lungs clear anteriorly. RRR Abdomen distended, firm. No bowel sounds. OG bilious. Review of Relevant I have reviewed the following items alexandra (where applicable) has been applied. Labs Laboratory Tests Test 06/13/19 11:45 06/13/19 11:59 06/13/19 14:12 06/13/19 16:00 O2 Saturation 95 % (92-99) Arterial Blood pH 7.30 (7.35-7.45) Arterial Blood pCO2 at Patient Temp 38 mmHg (35-46) Arterial Blood pO2 at Patient Temp 77 mmHg (75-108) Arterial Blood HCO3 18 mmol/L (21-28) Arterial Blood Base Excess -7 mmol/L (-3-3) FiO2 32% nc Glucose (Fingerstick) 453 mg/dL (70-99) 408 mg/dL (70-99) 206 mg/dL (70-99) Test 06/13/19 17:11 06/13/19 18:13 06/13/19 19:40 06/13/19 19:51 Glucose (Fingerstick) 153 mg/dL (70-99) 150 mg/dL (70-99) 142 mg/dL (70-99) White Blood Count 11.9 x10^3/uL (4.0-11.0) Red Blood Count 4.57 x10^6/uL (4.30-5.70) Hemoglobin 13.5 g/dL (13.0-17.5) Hematocrit 40.3 % (39.0-53.0) Mean Corpuscular Volume 88 fL (79-100) Mean Corpuscular Hemoglobin 29 pg (25-35) Mean Corpuscular Hemoglobin Concent 33 g/dL (31-37) Red Cell Distribution Width 13.9 % (11.5-14.5) Platelet Count 104 x10^3/uL (140-400) Sodium Level 139 mmol/L (136-145) Potassium Level 4.2 mmol/L (3.5-5.1) Chloride Level 102 mmol/L (98-107) Carbon Dioxide Level 29 mmol/L (21-32) Anion Gap 8 (6-14) Blood Urea Nitrogen 50 mg/dL (8-26) Creatinine 3.6 mg/dL (0.7-1.3) Estimated GFR (Cockcroft-Gault) 21.9 BUN/Creatinine Ratio 14 (6-20) Glucose Level 137 mg/dL (70-99) Calcium Level 6.2 mg/dL (8.5-10.1) Magnesium Level 1.7 mg/dL (1.8-2.4) Total Bilirubin 3.7 mg/dL (0.2-1.0) Aspartate Amino Transf (AST/SGOT) 160 U/L (15-37) Alanine Aminotransferase (ALT/SGPT) 111 U/L (16-63) Alkaline Phosphatase 72 U/L (46-116) Total Protein 6.2 g/dL (6.4-8.2) Albumin 2.7 g/dL (3.4-5.0) Albumin/Globulin Ratio 0.8 (1.0-1.7) Test 06/13/19 20:54 06/13/19 22:06 06/13/19 23:11 06/14/19 00:14 Glucose (Fingerstick) 137 mg/dL (70-99) 141 mg/dL (70-99) 128 mg/dL (70-99) 145 mg/dL (70-99) Test 06/14/19 01:19 06/14/19 02:28 06/14/19 03:31 06/14/19 04:37 Glucose (Fingerstick) 150 mg/dL (70-99) 148 mg/dL (70-99) 149 mg/dL (70-99) 137 mg/dL (70-99) Test 06/14/19 05:25 06/14/19 10:02 06/14/19 14:00 06/14/19 15:09 White Blood Count 12.8 x10^3/uL (4.0-11.0) Red Blood Count 4.58 x10^6/uL (4.30-5.70) Hemoglobin 13.4 g/dL (13.0-17.5) Hematocrit 40.7 % (39.0-53.0) Mean Corpuscular Volume 89 fL (79-100) Mean Corpuscular Hemoglobin 29 pg (25-35) Mean Corpuscular Hemoglobin Concent 33 g/dL (31-37) Red Cell Distribution Width 14.3 % (11.5-14.5) Platelet Count 112 x10^3/uL (140-400) Neutrophils (%) (Auto) 83 % (31-73) Lymphocytes (%) (Auto) 8 % (24-48) Monocytes (%) (Auto) 9 % (0-9) Eosinophils (%) (Auto) 0 % (0-3) Basophils (%) (Auto) 0 % (0-3) Neutrophils # (Auto) 10.6 x10^3/uL (1.8-7.7) Lymphocytes # (Auto) 1.0 x10^3/uL (1.0-4.8) Monocytes # (Auto) 1.2 x10^3/uL (0.0-1.1) Eosinophils # (Auto) 0.0 x10^3/uL (0.0-0.7) Basophils # (Auto) 0.0 x10^3/uL (0.0-0.2) Sodium Level 139 mmol/L (136-145) Potassium Level 4.8 mmol/L (3.5-5.1) Chloride Level 103 mmol/L (98-107) Carbon Dioxide Level 26 mmol/L (21-32) Anion Gap 10 (6-14) Blood Urea Nitrogen 61 mg/dL (8-26) Creatinine 3.9 mg/dL (0.7-1.3) Estimated GFR (Cockcroft-Gault) 20.0 BUN/Creatinine Ratio 16 (6-20) Glucose Level 156 mg/dL (70-99) Calcium Level < 5.0 mg/dL (8.5-10.1) Total Bilirubin 3.3 mg/dL (0.2-1.0) Aspartate Amino Transf (AST/SGOT) 133 U/L (15-37) Alanine Aminotransferase (ALT/SGPT) 93 U/L (16-63) Alkaline Phosphatase 63 U/L (46-116) Total Protein 5.9 g/dL (6.4-8.2) Albumin 2.5 g/dL (3.4-5.0) Albumin/Globulin Ratio 0.7 (1.0-1.7) Glucose (Fingerstick) 114 mg/dL (70-99) 132 mg/dL (70-99) O2 Saturation 97 % (92-99) Arterial Blood pH 7.36 (7.35-7.45) Arterial Blood pCO2 at Patient Temp 46 mmHg (35-46) Arterial Blood pO2 at Patient Temp 100 mmHg (75-108) Arterial Blood HCO3 25 mmol/L (21-28) Arterial Blood Base Excess 0 mmol/L (-3-3) FiO2 60 Test 06/14/19 17:00 06/14/19 17:10 06/14/19 23:12 06/15/19 04:30 Calcium Level 6.5 mg/dL (8.5-10.1) Glucose (Fingerstick) 159 mg/dL (70-99) 238 mg/dL (70-99) 226 mg/dL (70-99) Test 06/15/19 07:00 06/15/19 07:31 06/15/19 07:45 White Blood Count 9.9 x10^3/uL (4.0-11.0) Red Blood Count 3.85 x10^6/uL (4.30-5.70) Hemoglobin 11.5 g/dL (13.0-17.5) Hematocrit 33.5 % (39.0-53.0) Mean Corpuscular Volume 87 fL (79-100) Mean Corpuscular Hemoglobin 30 pg (25-35) Mean Corpuscular Hemoglobin Concent 34 g/dL (31-37) Red Cell Distribution Width 14.3 % (11.5-14.5) Platelet Count 122 x10^3/uL (140-400) Neutrophils (%) (Auto) 79 % (31-73) Lymphocytes (%) (Auto) 10 % (24-48) Monocytes (%) (Auto) 10 % (0-9) Eosinophils (%) (Auto) 1 % (0-3) Basophils (%) (Auto) 0 % (0-3) Neutrophils # (Auto) 7.8 x10^3/uL (1.8-7.7) Lymphocytes # (Auto) 1.0 x10^3/uL (1.0-4.8) Monocytes # (Auto) 1.0 x10^3/uL (0.0-1.1) Eosinophils # (Auto) 0.1 x10^3/uL (0.0-0.7) Basophils # (Auto) 0.0 x10^3/uL (0.0-0.2) Sodium Level 138 mmol/L (136-145) Potassium Level 4.3 mmol/L (3.5-5.1) Chloride Level 103 mmol/L (98-107) Carbon Dioxide Level 26 mmol/L (21-32) Anion Gap 9 (6-14) Blood Urea Nitrogen 62 mg/dL (8-26) Creatinine 3.3 mg/dL (0.7-1.3) Estimated GFR (Cockcroft-Gault) 23.4 BUN/Creatinine Ratio 18 (6-20) Glucose Level 209 mg/dL (70-99) Calcium Level 5.0 mg/dL (8.5-10.1) Phosphorus Level 3.4 mg/dL (2.6-4.7) Total Bilirubin 4.2 mg/dL (0.2-1.0) Aspartate Amino Transf (AST/SGOT) 128 U/L (15-37) Alanine Aminotransferase (ALT/SGPT) 66 U/L (16-63) Alkaline Phosphatase 54 U/L (46-116) Total Protein 5.7 g/dL (6.4-8.2) Albumin 2.6 g/dL (3.4-5.0) Albumin/Globulin Ratio 0.8 (1.0-1.7) Glucose (Fingerstick) 198 mg/dL (70-99) O2 Saturation 95 % (92-99) Arterial Blood pH 7.40 (7.35-7.45) Arterial Blood pCO2 at Patient Temp 38 mmHg (35-46) Arterial Blood pO2 at Patient Temp 81 mmHg (75-108) Arterial Blood HCO3 23 mmol/L (21-28) Arterial Blood Base Excess -2 mmol/L (-3-3) FiO2 40% Laboratory Tests Test 06/14/19 14:00 06/14/19 15:09 06/14/19 17:00 06/14/19 17:10 O2 Saturation 97 % (92-99) Arterial Blood pH 7.36 (7.35-7.45) Arterial Blood pCO2 at Patient Temp 46 mmHg (35-46) Arterial Blood pO2 at Patient Temp 100 mmHg (75-108) Arterial Blood HCO3 25 mmol/L (21-28) Arterial Blood Base Excess 0 mmol/L (-3-3) FiO2 60 Glucose (Fingerstick) 132 mg/dL (70-99) 159 mg/dL (70-99) Calcium Level 6.5 mg/dL (8.5-10.1) Test 06/14/19 23:12 06/15/19 04:30 06/15/19 07:00 06/15/19 07:31 Glucose (Fingerstick) 238 mg/dL (70-99) 226 mg/dL (70-99) 198 mg/dL (70-99) White Blood Count 9.9 x10^3/uL (4.0-11.0) Red Blood Count 3.85 x10^6/uL (4.30-5.70) Hemoglobin 11.5 g/dL (13.0-17.5) Hematocrit 33.5 % (39.0-53.0) Mean Corpuscular Volume 87 fL (79-100) Mean Corpuscular Hemoglobin 30 pg (25-35) Mean Corpuscular Hemoglobin Concent 34 g/dL (31-37) Red Cell Distribution Width 14.3 % (11.5-14.5) Platelet Count 122 x10^3/uL (140-400) Neutrophils (%) (Auto) 79 % (31-73) Lymphocytes (%) (Auto) 10 % (24-48) Monocytes (%) (Auto) 10 % (0-9) Eosinophils (%) (Auto) 1 % (0-3) Basophils (%) (Auto) 0 % (0-3) Neutrophils # (Auto) 7.8 x10^3/uL (1.8-7.7) Lymphocytes # (Auto) 1.0 x10^3/uL (1.0-4.8) Monocytes # (Auto) 1.0 x10^3/uL (0.0-1.1) Eosinophils # (Auto) 0.1 x10^3/uL (0.0-0.7) Basophils # (Auto) 0.0 x10^3/uL (0.0-0.2) Sodium Level 138 mmol/L (136-145) Potassium Level 4.3 mmol/L (3.5-5.1) Chloride Level 103 mmol/L (98-107) Carbon Dioxide Level 26 mmol/L (21-32) Anion Gap 9 (6-14) Blood Urea Nitrogen 62 mg/dL (8-26) Creatinine 3.3 mg/dL (0.7-1.3) Estimated GFR (Cockcroft-Gault) 23.4 BUN/Creatinine Ratio 18 (6-20) Glucose Level 209 mg/dL (70-99) Calcium Level 5.0 mg/dL (8.5-10.1) Phosphorus Level 3.4 mg/dL (2.6-4.7) Total Bilirubin 4.2 mg/dL (0.2-1.0) Aspartate Amino Transf (AST/SGOT) 128 U/L (15-37) Alanine Aminotransferase (ALT/SGPT) 66 U/L (16-63) Alkaline Phosphatase 54 U/L (46-116) Total Protein 5.7 g/dL (6.4-8.2) Albumin 2.6 g/dL (3.4-5.0) Albumin/Globulin Ratio 0.8 (1.0-1.7) Test 06/15/19 07:45 O2 Saturation 95 % (92-99) Arterial Blood pH 7.40 (7.35-7.45) Arterial Blood pCO2 at Patient Temp 38 mmHg (35-46) Arterial Blood pO2 at Patient Temp 81 mmHg (75-108) Arterial Blood HCO3 23 mmol/L (21-28) Arterial Blood Base Excess -2 mmol/L (-3-3) FiO2 40% Microbiology 06/12/19 Blood Culture - Preliminary, Resulted NO GROWTH AFTER 2 DAYS Vitals/I & O Vital Sign - Last 24 Hours 06/14/19 06/14/19 06/14/19 06/14/19 12:00 12:00 12:30 12:58 Temp 99.8 99.8 Pulse 101 Resp 19 12 B/P (MAP) 115/51 (72) Pulse Ox 96 93 O2 Delivery Ventilator Mechanical Ventilator Ventilator Ventilator 06/14/19 06/14/19 06/14/19 06/14/19 13:00 13:26 13:30 13:30 Pulse 100 Resp 18 18 19 19 B/P (MAP) 112/60 (77) Pulse Ox 94 94 94 94 O2 Delivery Ventilator Ventilator Ventilator Ventilator 06/14/19 06/14/19 06/14/19 06/14/19 13:54 14:00 15:00 15:32 Pulse 99 99 Resp 19 18 18 B/P (MAP) 112/63 (79) 117/57 (77) Pulse Ox 94 98 96 95 O2 Delivery Ventilator Ventilator Ventilator Ventilator 2/2906/14/19 06/14/19 06/14/19 16:00 16:00 16:44 17:00 Temp 99.4 99.4 Pulse 97 101 Resp 19 17 B/P (MAP) 108/59 (75) 104/59 (74) Pulse Ox 96 95 96 O2 Delivery Ventilator Mechanical Ventilator Ventilator Ventilator 06/14/19 06/14/19 06/14/19 06/14/19 18:00 18:46 19:00 20:00 Pulse 101 111 116 Resp 17 20 19 19 B/P (MAP) 113/59 (77) 109/61 (77) 104/64 (77) Pulse Ox 95 95 95 95 O2 Delivery Ventilator Ventilator Ventilator Ventilator 06/14/19 06/14/19 06/14/19 06/14/19 20:00 20:00 20:16 21:00 Temp 102.2 102.2 Pulse 129 Resp 17 B/P (MAP) 115/63 (80) Pulse Ox 95 93 O2 Delivery Mechanical Ventilator Ventilator Ventilator 06/14/19 06/14/19 06/14/19 06/14/19 22:00 23:00 23:38 23:45 Pulse 122 121 Resp 17 17 B/P (MAP) 120/60 (80) 105/65 (78) Pulse Ox 94 95 95 O2 Delivery Ventilator Ventilator Mechanical Ventilator 06/14/19 06/15/19 06/15/19 06/15/19 23:59 00:00 00:27 01:00 Temp 102.6 101.8 102.6 101.8 Pulse 118 118 114 Resp 22 12 22 B/P (MAP) 122/70 (87) 122/70 (87) 98/67 (77) Pulse Ox 94 94 94 94 O2 Delivery Ventilator Ventilator Ventilator Ventilator 06/15/19 06/15/19 06/15/19 06/15/19 02:00 02:37 03:00 04:00 Temp 101.5 101.3 101.5 101.3 Pulse 110 108 Resp 22 20 B/P (MAP) 97/62 (74) 99/57 (71) Pulse Ox 95 94 96 O2 Delivery Ventilator Ventilator Ventilator Mechanical Ventilator 06/15/19 06/15/19 06/15/19 06/15/19 04:00 04:44 05:00 05:37 Temp 100.8 100.8 Pulse 103 92 Resp 20 18 B/P (MAP) 85/61 (69) 109/87 (94) Pulse Ox 96 97 98 97 O2 Delivery Ventilator Ventilator Ventilator Ventilator 06/15/19 06/15/19 06/15/19 06/15/19 06:00 07:00 07:32 07:41 Temp 99.4 99.4 Pulse 94 92 94 Resp 18 18 18 B/P (MAP) 113/77 (89) 102/59 (73) 98/64 (75) Pulse Ox 97 95 95 95 O2 Delivery Ventilator Ventilator Ventilator Ventilator 06/15/19 06/15/19 06/15/19 06/15/19 08:14 09:10 09:44 10:05 Temp 99.5 99.5 Pulse 92 91 Resp 16 18 B/P (MAP) 96/54 (68) 111/66 (81) Pulse Ox 96 96 96 O2 Delivery Mechanical Ventilator Ventilator Ventilator Ventilator Intake and Output 06/14/19 06/14/19 06/15/19 15:00 23:00 07:00 Intake Total 749 ml 253 ml Output Total 255 ml 860 ml Balance 494 ml -607 ml Problem List Problems Medical Problems: (1) Acute pancreatitis Status: Acute (2) Nausea & vomiting Status: Acute Assessment Severe biliary pancreatitis. Resp failure Renal failure Hypocalcemia Plan of Care Note Continue support. Repeat CT? For sure next week. Hemodynamically unstable?: Yes Is patient in severe pain?: Yes Is NPO status required?: Yes MARIA L CRUZ MD Jun 15, 2019 11:29
--- NOTE | 2019-06-15 12:07 | NUR ---
Intra abdominal pressure at 16. Dr Coker notified.
--- NOTE | 2019-06-15 14:44 | NUR ---
pharmacy notified of ionized calcium level. Rate unchanged at this time. Will redraw in 6 hours.
--- NOTE | 2019-06-15 15:32 | PDOC ---
SURGICAL PROGRESS NOTE Subjective Ceasar for Dr Dawson intubated, sedated Vital Signs Vital Signs Date Time Temp Pulse Resp B/P (MAP) Pulse Ox O2 Delivery O2 Flow Rate FiO2 06/15/19 15:02 94 Ventilator 06/15/19 14:17 100.6 94 19 101/96 (98) 100.6 06/14/19 11:00 3.0 I&O Intake and Output 06/15/19 07:00 Intake Total 1002 ml Output Total 1115 ml Balance -113 ml Intake Oral 0 ml IV Total 1002 ml Output Urine Total 615 ml Gastric Drainage Total 500 ml PATIENT HAS A LEPE: Yes (UO approx 100 mL/hr) Abdomen: Other (distended, firm, IAP 16) Labs Laboratory Tests Test 06/13/19 16:00 06/13/19 17:11 06/13/19 18:13 06/13/19 19:40 Glucose (Fingerstick) 206 mg/dL (70-99) 153 mg/dL (70-99) 150 mg/dL (70-99) White Blood Count 11.9 x10^3/uL (4.0-11.0) Red Blood Count 4.57 x10^6/uL (4.30-5.70) Hemoglobin 13.5 g/dL (13.0-17.5) Hematocrit 40.3 % (39.0-53.0) Mean Corpuscular Volume 88 fL (79-100) Mean Corpuscular Hemoglobin 29 pg (25-35) Mean Corpuscular Hemoglobin Concent 33 g/dL (31-37) Red Cell Distribution Width 13.9 % (11.5-14.5) Platelet Count 104 x10^3/uL (140-400) Sodium Level 139 mmol/L (136-145) Potassium Level 4.2 mmol/L (3.5-5.1) Chloride Level 102 mmol/L (98-107) Carbon Dioxide Level 29 mmol/L (21-32) Anion Gap 8 (6-14) Blood Urea Nitrogen 50 mg/dL (8-26) Creatinine 3.6 mg/dL (0.7-1.3) Estimated GFR (Cockcroft-Gault) 21.9 BUN/Creatinine Ratio 14 (6-20) Glucose Level 137 mg/dL (70-99) Calcium Level 6.2 mg/dL (8.5-10.1) Magnesium Level 1.7 mg/dL (1.8-2.4) Total Bilirubin 3.7 mg/dL (0.2-1.0) Aspartate Amino Transf (AST/SGOT) 160 U/L (15-37) Alanine Aminotransferase (ALT/SGPT) 111 U/L (16-63) Alkaline Phosphatase 72 U/L (46-116) Total Protein 6.2 g/dL (6.4-8.2) Albumin 2.7 g/dL (3.4-5.0) Albumin/Globulin Ratio 0.8 (1.0-1.7) Test 06/13/19 19:51 06/13/19 20:54 06/13/19 22:06 06/13/19 23:11 Glucose (Fingerstick) 142 mg/dL (70-99) 137 mg/dL (70-99) 141 mg/dL (70-99) 128 mg/dL (70-99) Test 06/14/19 00:14 06/14/19 01:19 06/14/19 02:28 06/14/19 03:31 Glucose (Fingerstick) 145 mg/dL (70-99) 150 mg/dL (70-99) 148 mg/dL (70-99) 149 mg/dL (70-99) Test 06/14/19 04:37 06/14/19 05:25 06/14/19 10:02 06/14/19 14:00 Glucose (Fingerstick) 137 mg/dL (70-99) 114 mg/dL (70-99) White Blood Count 12.8 x10^3/uL (4.0-11.0) Red Blood Count 4.58 x10^6/uL (4.30-5.70) Hemoglobin 13.4 g/dL (13.0-17.5) Hematocrit 40.7 % (39.0-53.0) Mean Corpuscular Volume 89 fL (79-100) Mean Corpuscular Hemoglobin 29 pg (25-35) Mean Corpuscular Hemoglobin Concent 33 g/dL (31-37) Red Cell Distribution Width 14.3 % (11.5-14.5) Platelet Count 112 x10^3/uL (140-400) Neutrophils (%) (Auto) 83 % (31-73) Lymphocytes (%) (Auto) 8 % (24-48) Monocytes (%) (Auto) 9 % (0-9) Eosinophils (%) (Auto) 0 % (0-3) Basophils (%) (Auto) 0 % (0-3) Neutrophils # (Auto) 10.6 x10^3/uL (1.8-7.7) Lymphocytes # (Auto) 1.0 x10^3/uL (1.0-4.8) Monocytes # (Auto) 1.2 x10^3/uL (0.0-1.1) Eosinophils # (Auto) 0.0 x10^3/uL (0.0-0.7) Basophils # (Auto) 0.0 x10^3/uL (0.0-0.2) Sodium Level 139 mmol/L (136-145) Potassium Level 4.8 mmol/L (3.5-5.1) Chloride Level 103 mmol/L (98-107) Carbon Dioxide Level 26 mmol/L (21-32) Anion Gap 10 (6-14) Blood Urea Nitrogen 61 mg/dL (8-26) Creatinine 3.9 mg/dL (0.7-1.3) Estimated GFR (Cockcroft-Gault) 20.0 BUN/Creatinine Ratio 16 (6-20) Glucose Level 156 mg/dL (70-99) Calcium Level < 5.0 mg/dL (8.5-10.1) Total Bilirubin 3.3 mg/dL (0.2-1.0) Aspartate Amino Transf (AST/SGOT) 133 U/L (15-37) Alanine Aminotransferase (ALT/SGPT) 93 U/L (16-63) Alkaline Phosphatase 63 U/L (46-116) Total Protein 5.9 g/dL (6.4-8.2) Albumin 2.5 g/dL (3.4-5.0) Albumin/Globulin Ratio 0.7 (1.0-1.7) O2 Saturation 97 % (92-99) Arterial Blood pH 7.36 (7.35-7.45) Arterial Blood pCO2 at Patient Temp 46 mmHg (35-46) Arterial Blood pO2 at Patient Temp 100 mmHg (75-108) Arterial Blood HCO3 25 mmol/L (21-28) Arterial Blood Base Excess 0 mmol/L (-3-3) FiO2 60 Test 06/14/19 15:09 06/14/19 17:00 06/14/19 17:10 06/14/19 23:12 Glucose (Fingerstick) 132 mg/dL (70-99) 159 mg/dL (70-99) 238 mg/dL (70-99) Calcium Level 6.5 mg/dL (8.5-10.1) Test 06/15/19 04:30 06/15/19 07:00 06/15/19 07:31 06/15/19 07:45 Glucose (Fingerstick) 226 mg/dL (70-99) 198 mg/dL (70-99) White Blood Count 9.9 x10^3/uL (4.0-11.0) Red Blood Count 3.85 x10^6/uL (4.30-5.70) Hemoglobin 11.5 g/dL (13.0-17.5) Hematocrit 33.5 % (39.0-53.0) Mean Corpuscular Volume 87 fL (79-100) Mean Corpuscular Hemoglobin 30 pg (25-35) Mean Corpuscular Hemoglobin Concent 34 g/dL (31-37) Red Cell Distribution Width 14.3 % (11.5-14.5) Platelet Count 122 x10^3/uL (140-400) Neutrophils (%) (Auto) 79 % (31-73) Lymphocytes (%) (Auto) 10 % (24-48) Monocytes (%) (Auto) 10 % (0-9) Eosinophils (%) (Auto) 1 % (0-3) Basophils (%) (Auto) 0 % (0-3) Neutrophils # (Auto) 7.8 x10^3/uL (1.8-7.7) Lymphocytes # (Auto) 1.0 x10^3/uL (1.0-4.8) Monocytes # (Auto) 1.0 x10^3/uL (0.0-1.1) Eosinophils # (Auto) 0.1 x10^3/uL (0.0-0.7) Basophils # (Auto) 0.0 x10^3/uL (0.0-0.2) Sodium Level 138 mmol/L (136-145) Potassium Level 4.3 mmol/L (3.5-5.1) Chloride Level 103 mmol/L (98-107) Carbon Dioxide Level 26 mmol/L (21-32) Anion Gap 9 (6-14) Blood Urea Nitrogen 62 mg/dL (8-26) Creatinine 3.3 mg/dL (0.7-1.3) Estimated GFR (Cockcroft-Gault) 23.4 BUN/Creatinine Ratio 18 (6-20) Glucose Level 209 mg/dL (70-99) Calcium Level 5.0 mg/dL (8.5-10.1) Phosphorus Level 3.4 mg/dL (2.6-4.7) Total Bilirubin 4.2 mg/dL (0.2-1.0) Aspartate Amino Transf (AST/SGOT) 128 U/L (15-37) Alanine Aminotransferase (ALT/SGPT) 66 U/L (16-63) Alkaline Phosphatase 54 U/L (46-116) Total Protein 5.7 g/dL (6.4-8.2) Albumin 2.6 g/dL (3.4-5.0) Albumin/Globulin Ratio 0.8 (1.0-1.7) O2 Saturation 95 % (92-99) Arterial Blood pH 7.40 (7.35-7.45) Arterial Blood pCO2 at Patient Temp 38 mmHg (35-46) Arterial Blood pO2 at Patient Temp 81 mmHg (75-108) Arterial Blood HCO3 23 mmol/L (21-28) Arterial Blood Base Excess -2 mmol/L (-3-3) FiO2 40% Test 06/15/19 11:36 06/15/19 14:05 Glucose (Fingerstick) 226 mg/dL (70-99) Ionized Calcium 0.69 mmol/L (1.13-1.32) Laboratory Tests Test 06/14/19 17:00 06/14/19 17:10 06/14/19 23:12 06/15/19 04:30 Calcium Level 6.5 mg/dL (8.5-10.1) Glucose (Fingerstick) 159 mg/dL (70-99) 238 mg/dL (70-99) 226 mg/dL (70-99) Test 06/15/19 07:00 06/15/19 07:31 06/15/19 07:45 06/15/19 11:36 White Blood Count 9.9 x10^3/uL (4.0-11.0) Red Blood Count 3.85 x10^6/uL (4.30-5.70) Hemoglobin 11.5 g/dL (13.0-17.5) Hematocrit 33.5 % (39.0-53.0) Mean Corpuscular Volume 87 fL (79-100) Mean Corpuscular Hemoglobin 30 pg (25-35) Mean Corpuscular Hemoglobin Concent 34 g/dL (31-37) Red Cell Distribution Width 14.3 % (11.5-14.5) Platelet Count 122 x10^3/uL (140-400) Neutrophils (%) (Auto) 79 % (31-73) Lymphocytes (%) (Auto) 10 % (24-48) Monocytes (%) (Auto) 10 % (0-9) Eosinophils (%) (Auto) 1 % (0-3) Basophils (%) (Auto) 0 % (0-3) Neutrophils # (Auto) 7.8 x10^3/uL (1.8-7.7) Lymphocytes # (Auto) 1.0 x10^3/uL (1.0-4.8) Monocytes # (Auto) 1.0 x10^3/uL (0.0-1.1) Eosinophils # (Auto) 0.1 x10^3/uL (0.0-0.7) Basophils # (Auto) 0.0 x10^3/uL (0.0-0.2) Sodium Level 138 mmol/L (136-145) Potassium Level 4.3 mmol/L (3.5-5.1) Chloride Level 103 mmol/L (98-107) Carbon Dioxide Level 26 mmol/L (21-32) Anion Gap 9 (6-14) Blood Urea Nitrogen 62 mg/dL (8-26) Creatinine 3.3 mg/dL (0.7-1.3) Estimated GFR (Cockcroft-Gault) 23.4 BUN/Creatinine Ratio 18 (6-20) Glucose Level 209 mg/dL (70-99) Calcium Level 5.0 mg/dL (8.5-10.1) Phosphorus Level 3.4 mg/dL (2.6-4.7) Total Bilirubin 4.2 mg/dL (0.2-1.0) Aspartate Amino Transf (AST/SGOT) 128 U/L (15-37) Alanine Aminotransferase (ALT/SGPT) 66 U/L (16-63) Alkaline Phosphatase 54 U/L (46-116) Total Protein 5.7 g/dL (6.4-8.2) Albumin 2.6 g/dL (3.4-5.0) Albumin/Globulin Ratio 0.8 (1.0-1.7) Glucose (Fingerstick) 198 mg/dL (70-99) 226 mg/dL (70-99) O2 Saturation 95 % (92-99) Arterial Blood pH 7.40 (7.35-7.45) Arterial Blood pCO2 at Patient Temp 38 mmHg (35-46) Arterial Blood pO2 at Patient Temp 81 mmHg (75-108) Arterial Blood HCO3 23 mmol/L (21-28) Arterial Blood Base Excess -2 mmol/L (-3-3) FiO2 40% Test 06/15/19 14:05 Ionized Calcium 0.69 mmol/L (1.13-1.32) Problem List Problems Medical Problems: (1) Acute pancreatitis Status: Acute (2) Nausea & vomiting Status: Acute Assessment/Plan pancreatitis resp failure renal failure no new surgical plans continue supportive care WILL BEJARANO MD Jun 15, 2019 15:32
[2019-06-16] VITALS (20 sets, daily range): BP systolic 115–140; BP diastolic 65–77
[2019-06-16] MEDS: CALCIUM GLUCONATE IV PRN ×3 (00:15→18:13)
[2019-06-16] MEDS: NORMAL SALINE IV PRN ×3 (00:15→18:13)
[2019-06-16] MEDS: DEXMEDETOMIDINE 400 MCG in IV NORMAL SALINE 100ML 96 ML IV PRN ×4 (01:42→21:15)
[2019-06-16] MEDS: AA 4.25 %/CALCIUM/LYTES/D5W 1,000 ML IV SCH ×2 (01:45→14:15)
[2019-06-16] MEDS: MIDAZOLAM HCL 50 MG in IV NORMAL SALINE 50ML 50 ML IV PRN ×3 (02:32→18:14)
[2019-06-16] MEDS: INSULIN LISPRO 300 UNITS/3 ML VIAL. SQ SCH ×5 (04:00→19:51)
[2019-06-16 05:39] LABS: BASO % 0 % (0-3); EOS % 0 % (0-3); HEMATOCRIT 32.9 % (39.0-53.0); HEMOGLOBIN 11.1 g/dL (13.0-17.5); LYMPH # 0.4 x10^3/uL (1.0-4.8); LYMPH % 3 % (24-48); MEAN CORPUSCULAR HEMOGLOBIN 30 pg (25-35); MEAN CORPUSCULAR HGB CONC 34 g/dL (31-37); MEAN CORPUSCULAR VOLUME 89 fL (79-100); MONO % 8 % (0-9); NEUT # 11.1 x10^3/uL (1.8-7.7); NEUT % 89 % (31-73); PLATELET COUNT 156 x10^3/uL (140-400); RED BLOOD COUNT 3.72 x10^6/uL (4.30-5.70); WHITE BLOOD COUNT 12.6 x10^3/uL (4.0-11.0)
[2019-06-16] MEDS: PANTOPRAZOLE IV PUSH 40 MG VIAL. IVP SCH ×2 (06:02→17:47)
[2019-06-16 06:04] LABS: ALBUMIN 2.3 g/dL (3.4-5.0); ALBUMIN/GLOBULIN RATIO 0.6 (1.0-1.7); CALCIUM 6.6 mg/dL (8.5-10.1); CREATININE 2.4 mg/dL (0.7-1.3); POTASSIUM 4.6 mmol/L (3.5-5.1); TOTAL BILIRUBIN 5.5 mg/dL (0.2-1.0)
[2019-06-16] MEDS: CHLORHEXIDINE 0.12% 15 ML MOUTHWASH. MM SCH ×2 (07:39→21:04)
[2019-06-16] MEDS: MEROPENEM 500 MG in IV NORMAL SALINE 50ML 50 ML IV SCH ×2 (07:39→21:04)
--- NOTE | 2019-06-16 08:15 | NUR ---
Intra abdominal pressure at 13.
--- NOTE | 2019-06-16 08:24 | PDOC ---
Infectious Disease Note Subjective Subjective Now intubated, FiO2 40% Sedated BC repeated and Zyvox added ROS ROS unobtainable Vital Sign Vital Signs Vital Signs Date Time Temp Pulse Resp B/P (MAP) Pulse Ox O2 Delivery O2 Flow Rate FiO2 06/16/19 07:59 Mechanical Ventilator 06/16/19 07:53 99.3 104 17 140/75 (96) 97 99.3 06/16/19 04:37 3.0 Physical Exam PHYSICAL EXAM GENERAL: Sedated, orally intubated on vent, mitts HEENT: Pupils equal, small. OGT/ETT in place NECK: Supple LUNGS: Diminished aeration bases HEART: S1, S2, regular, no murmurs. ABDOMEN: Distended, tight, no guarding to palpation,BS hypoactive : [place] EXTREMITIES: trace edema, no cyanosis. SCDs bilaterally SKIN: Warm, dry. 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/HD catheter (06/13) clean Labs Lab Laboratory Tests Test 06/15/19 11:36 06/15/19 14:05 06/15/19 17:51 06/15/19 20:02 Glucose (Fingerstick) 226 mg/dL (70-99) 182 mg/dL (70-99) 171 mg/dL (70-99) Ionized Calcium 0.69 mmol/L (1.13-1.32) Test 06/15/19 23:55 06/16/19 00:01 06/16/19 04:22 06/16/19 05:00 Glucose (Fingerstick) 203 mg/dL (70-99) 189 mg/dL (70-99) Ionized Calcium 0.77 mmol/L (1.13-1.32) 0.83 mmol/L (1.13-1.32) White Blood Count 12.6 x10^3/uL (4.0-11.0) Red Blood Count 3.72 x10^6/uL (4.30-5.70) Hemoglobin 11.1 g/dL (13.0-17.5) Hematocrit 32.9 % (39.0-53.0) Mean Corpuscular Volume 89 fL (79-100) Mean Corpuscular Hemoglobin 30 pg (25-35) Mean Corpuscular Hemoglobin Concent 34 g/dL (31-37) Red Cell Distribution Width 14.0 % (11.5-14.5) Platelet Count 156 x10^3/uL (140-400) Neutrophils (%) (Auto) 89 % (31-73) Lymphocytes (%) (Auto) 3 % (24-48) Monocytes (%) (Auto) 8 % (0-9) Eosinophils (%) (Auto) 0 % (0-3) Basophils (%) (Auto) 0 % (0-3) Neutrophils # (Auto) 11.1 x10^3/uL (1.8-7.7) Lymphocytes # (Auto) 0.4 x10^3/uL (1.0-4.8) Monocytes # (Auto) 1.0 x10^3/uL (0.0-1.1) Eosinophils # (Auto) 0.0 x10^3/uL (0.0-0.7) Basophils # (Auto) 0.0 x10^3/uL (0.0-0.2) Sodium Level 144 mmol/L (136-145) Potassium Level 4.6 mmol/L (3.5-5.1) Chloride Level 107 mmol/L (98-107) Carbon Dioxide Level 26 mmol/L (21-32) Anion Gap 11 (6-14) Blood Urea Nitrogen 59 mg/dL (8-26) Creatinine 2.4 mg/dL (0.7-1.3) Estimated GFR (Cockcroft-Gault) 35.0 BUN/Creatinine Ratio 25 (6-20) Glucose Level 209 mg/dL (70-99) Calcium Level 6.6 mg/dL (8.5-10.1) Phosphorus Level 4.2 mg/dL (2.6-4.7) Magnesium Level 2.7 mg/dL (1.8-2.4) Total Bilirubin 5.5 mg/dL (0.2-1.0) Aspartate Amino Transf (AST/SGOT) 137 U/L (15-37) Alanine Aminotransferase (ALT/SGPT) 66 U/L (16-63) Alkaline Phosphatase 58 U/L (46-116) Total Protein 6.0 g/dL (6.4-8.2) Albumin 2.3 g/dL (3.4-5.0) Albumin/Globulin Ratio 0.6 (1.0-1.7) Test 3/2/20 07:36 Glucose (Fingerstick) 210 mg/dL (70-99) Micro Microbiology 06/14/19 Blood Culture - Preliminary, Resulted NO GROWTH AFTER 1 DAY Objective Assessment Fever Sepsis from GI Gallbladder stone pancreatitis Acute Resp failure - intubated Lactic acidosis. Leukocytosis - ? reactive Acute kidney injury requiring dialysis, HDC (06/13) Metabolic acidosis. Hypocalcemia Basilar atelectasis. Plan Plan of Care Continue empiric merrem, renal dosing Zyvox added Repeat lipase this am CBC in am Await repeat CT scan soon Renal, GI and General Surgery/Pulm following. Plans are for randi this admission BC neg to date Maintain aspiration precaution. D/w nursing Critically ill LE CROWLEY MD Jun 16, 2019 08:24
[2019-06-16 08:28] LABS: BASE EXCESS ABG -3 mmol/L (-3-3); HCO3 ABG 24 mmol/L (21-28); PCO2 ABG 46 mmHg (35-46); PO2 ABG 75 mmHg (75-108); SAT O2 ABG 93 % (92-99)
[2019-06-16 08:30] LABS: FIO2 ABG 40
--- NOTE | 2019-06-16 09:33 | PDOC ---
SUBJECTIVE ROS Intubated, sedated OBJECTIVE Vital Signs Vital Signs Date Time Temp Pulse Resp B/P (MAP) Pulse Ox O2 Delivery O2 Flow Rate FiO2 06/16/19 07:59 Mechanical Ventilator 06/16/19 07:53 99.3 104 17 140/75 (96) 97 99.3 06/16/19 04:37 3.0 I & 0 Intake and Output 06/16/19 07:00 Intake Total 1138 ml Output Total 3750 ml Balance -2612 ml IV Total 1138 ml Output Urine Total 2600 ml Gastric Drainage Total 1150 ml PHYSICAL EXAM Physical Exam GENERAL: Sedated, orally intubated on vent HEENT: OGT/ETT in place NECK: Supple LUNGS: Diminished aeration bases HEART: S1, S2, regular, no murmurs. ABDOMEN: Distended, tight, no guarding to palpation,BS hypoactive : [place] EXTREMITIES: trace edema, no cyanosis SKIN: Warm, dry. 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 Currently on IV calcium Ac. Pancreatitis - Gallbladder stone pancreatitis, NGT in place. Defer to GI to initiate enteral feeds Sepsis from GI Acute Resp failure - intubated Metabolic acidosis- resolved today COMMENT/RELEVANT DATA Meds Current Medications Medications (Trade) Dose Ordered Sig/Jesse Start Time Stop Time Status Last Admin Dose Admin Acetaminophen (Tylenol Supp) 650 mg PRN Q6HRS PRN 06/14/19 20:00 06/15/19 21:52 650 MG Albumin Human 200 ml @ 200 mls/hr 1X PRN PRN 06/14/19 09:00 06/14/19 14:59 DC 06/14/19 09:40 200 MLS/HR Amino Acids/ Electrolytes/ Dextrose 1,000 ml @ 80 mls/hr [id number] 06/12/19 10:15 Amino Acids/ Glycerin/ Electrolytes 1,000 ml @ 80 mls/hr [id number] 06/12/19 10:00 UNV Atropine Sulfate (ATROPINE 0.5mg SYRINGE) 0.5 mg PRN Q5MIN PRN 06/13/19 19:00 Calcium Chloride 2000 mg/Sodium Chloride 120 ml @ 240 mls/hr PRN QID PRN 06/14/19 10:15 06/15/19 09:58 DC 06/15/19 08:32 240 MLS/HR Calcium Gluconate 1000 mg/Sodium Chloride 110 ml @ 220 mls/hr 1X ONCE 06/12/19 19:15 06/12/19 19:44 DC 06/12/19 20:35 220 MLS/HR Calcium Gluconate 5000 mg/Sodium Chloride 250 ml @ 28.782 mls/ hr CONT PRN 06/15/19 09:30 06/16/19 08:39 28.782 MLS/HR Calcium Gluconate 27969 mg/Sodium Chloride 494 ml @ 4.051 mls/ hr CONT PRN 06/15/19 09:30 06/15/19 09:23 DC Chlorhexidine Gluconate (Peridex) 15 ml BID 06/14/19 21:00 06/16/19 07:39 15 ML Dexmedetomidine HCl 400 mcg/ Sodium Chloride 100 ml @ 0 mls/hr CONT PRN 06/13/19 19:00 06/16/19 01:42 10.5 MLS/HR Dextrose (Dextrose 50%-Water Syringe) 12.5 gm PRN Q15MIN PRN 06/14/19 23:30 Etomidate (Amidate) 14 mg 1X ONCE 06/14/19 13:00 06/14/19 13:01 DC 06/14/19 12:59 14 MG Fentanyl Citrate (Fentanyl 2ml Vial) 100 mcg 1X ONCE 06/14/19 13:00 06/14/19 13:01 DC 06/14/19 12:58 100 MCG Furosemide (Lasix) 40 mg 1X ONCE 06/12/19 16:00 06/12/19 16:01 DC 06/12/19 16:13 40 MG Hydralazine HCl (Apresoline Inj) 10 mg PRN Q6HRS PRN 06/11/19 18:15 06/11/19 18:22 10 MG Hydromorphone HCl (Dilaudid) 1 mg PRN Q2HRS PRN 06/11/19 12:00 06/14/19 13:00 2 MG Info (CONTRAST GIVEN -- Rx MONITORING) 1 each PRN DAILY PRN 06/11/19 04:45 06/13/19 04:44 DC Info (PHARMACY MONITORING -- do not chart) 1 each PRN DAILY PRN 06/14/19 09:00 06/14/19 09:06 DC Insulin Human Lispro (HumaLOG) 0-7 UNITS Q4HRS 06/15/19 00:15 06/16/19 07:40 4 UNITS Insulin Human Regular (HumuLIN R VIAL) 10 unit 1X ONCE 06/12/19 16:00 06/12/19 16:01 DC 06/12/19 16:14 10 UNIT Insulin Human Regular 100 unit/ Sodium Chloride 101 ml @ 0 mls/hr CONT PRN 06/13/19 14:15 06/13/19 15:03 7.07 MLS/HR Iohexol (Omnipaque 350 Mg/ml) 100 ml 1X ONCE 06/11/19 04:45 06/11/19 04:46 DC 06/11/19 05:01 100 ML Lidocaine HCl (Buffered Lidocaine 1%) 6 ml 1X ONCE 06/13/19 09:30 06/13/19 09:31 DC 06/13/19 09:23 6 ML Linezolid/Dextrose 300 ml @ 300 mls/hr Q12HR 06/14/19 21:00 06/16/19 08:37 300 MLS/HR Lorazepam (Ativan Inj) 1 mg PRN Q6HRS PRN 06/11/19 18:15 06/14/19 13:00 2 MG Magnesium Sulfate 50 ml @ 25 mls/hr PRN DAILY PRN 06/14/19 10:30 Meropenem 500 mg/ Sodium Chloride 50 ml @ 100 mls/hr Q12HR 06/12/19 21:00 06/16/19 07:39 100 MLS/HR Midazolam HCl (Versed) 5 mg 1X ONCE 06/14/19 13:00 06/14/19 13:01 DC 06/14/19 12:59 5 MG Midazolam HCl 50 mg/Sodium Chloride 50 ml @ 0 mls/hr CONT PRN 06/14/19 12:45 06/16/19 02:32 7 MLS/HR Morphine Sulfate (Morphine Sulfate) 4 mg PRN Q2HR PRN 06/11/19 05:45 06/11/19 11:54 DC 06/11/19 07:37 4 MG Norepinephrine Bitartrate 8 mg/ Dextrose 258 ml @ 20.027 mls/ hr CONT PRN 06/14/19 10:30 06/14/19 10:31 20.027 MLS/HR Nystatin (Nystop) 1 devorah PRN QID PRN 06/11/19 23:15 06/11/19 23:19 1 DEVORAH Ondansetron HCl (Zofran) 4 mg PRN Q8HRS PRN 06/11/19 05:45 06/12/19 05:44 DC 06/12/19 03:29 4 MG Pantoprazole Sodium (PROTONIX VIAL for IV PUSH) 40 mg [id number] 06/13/19 21:00 06/16/19 06:02 40 MG Piperacillin Sod/ Tazobactam Sod (Zosyn Per Pharmacy) 1 each PRN DAILY PRN 06/12/19 13:15 06/12/19 19:16 DC Piperacillin Sod/ Tazobactam Sod 2.25 gm/Sodium Chloride 50 ml @ 100 mls/hr Q6HRS 06/12/19 13:30 06/12/19 19:15 DC 06/12/19 13:48 100 MLS/HR Potassium Chloride/Water 100 ml @ 100 mls/hr Q1H 06/11/19 06:00 06/11/19 07:59 DC 06/11/19 08:41 100 MLS/HR Prochlorperazine Edisylate (Compazine) 10 mg PRN Q8HRS PRN 06/11/19 12:00 06/12/19 14:59 10 MG Sodium Bicarbonate 50 meq/Sodium Chloride 1,050 ml @ 150 mls/hr Q7H 06/12/19 11:00 06/13/19 14:48 DC 06/13/19 04:16 150 MLS/HR Sodium Bicarbonate (Sodium Bicarb Adult 8.4% Syr) 50 meq 1X ONCE 06/12/19 16:00 06/12/19 16:01 DC 06/12/19 16:12 50 MEQ Sodium Chloride 1,000 ml @ 400 mls/hr Q2H30M PRN 06/14/19 08:55 06/14/19 20:54 DC Succinylcholine Chloride (Anectine) 200 mg 1X ONCE 06/14/19 13:00 06/14/19 13:01 DC 06/14/19 12:59 200 MG Lab Laboratory Tests Test 06/15/19 11:36 06/15/19 14:05 06/15/19 17:51 06/15/19 20:02 Glucose (Fingerstick) 226 mg/dL (70-99) 182 mg/dL (70-99) 171 mg/dL (70-99) Ionized Calcium 0.69 mmol/L (1.13-1.32) Test 06/15/19 23:55 06/16/19 00:01 06/16/19 04:22 06/16/19 05:00 Glucose (Fingerstick) 203 mg/dL (70-99) 189 mg/dL (70-99) Ionized Calcium 0.77 mmol/L (1.13-1.32) 0.83 mmol/L (1.13-1.32) White Blood Count 12.6 x10^3/uL (4.0-11.0) Red Blood Count 3.72 x10^6/uL (4.30-5.70) Hemoglobin 11.1 g/dL (13.0-17.5) Hematocrit 32.9 % (39.0-53.0) Mean Corpuscular Volume 89 fL (79-100) Mean Corpuscular Hemoglobin 30 pg (25-35) Mean Corpuscular Hemoglobin Concent 34 g/dL (31-37) Red Cell Distribution Width 14.0 % (11.5-14.5) Platelet Count 156 x10^3/uL (140-400) Neutrophils (%) (Auto) 89 % (31-73) Lymphocytes (%) (Auto) 3 % (24-48) Monocytes (%) (Auto) 8 % (0-9) Eosinophils (%) (Auto) 0 % (0-3) Basophils (%) (Auto) 0 % (0-3) Neutrophils # (Auto) 11.1 x10^3/uL (1.8-7.7) Lymphocytes # (Auto) 0.4 x10^3/uL (1.0-4.8) Monocytes # (Auto) 1.0 x10^3/uL (0.0-1.1) Eosinophils # (Auto) 0.0 x10^3/uL (0.0-0.7) Basophils # (Auto) 0.0 x10^3/uL (0.0-0.2) Sodium Level 144 mmol/L (136-145) Potassium Level 4.6 mmol/L (3.5-5.1) Chloride Level 107 mmol/L (98-107) Carbon Dioxide Level 26 mmol/L (21-32) Anion Gap 11 (6-14) Blood Urea Nitrogen 59 mg/dL (8-26) Creatinine 2.4 mg/dL (0.7-1.3) Estimated GFR (Cockcroft-Gault) 35.0 BUN/Creatinine Ratio 25 (6-20) Glucose Level 209 mg/dL (70-99) Calcium Level 6.6 mg/dL (8.5-10.1) Phosphorus Level 4.2 mg/dL (2.6-4.7) Magnesium Level 2.7 mg/dL (1.8-2.4) Total Bilirubin 5.5 mg/dL (0.2-1.0) Aspartate Amino Transf (AST/SGOT) 137 U/L (15-37) Alanine Aminotransferase (ALT/SGPT) 66 U/L (16-63) Alkaline Phosphatase 58 U/L (46-116) Total Protein 6.0 g/dL (6.4-8.2) Albumin 2.3 g/dL (3.4-5.0) Albumin/Globulin Ratio 0.6 (1.0-1.7) Lipase 475 U/L (73-393) Test 06/16/19 07:36 06/16/19 07:50 Glucose (Fingerstick) 210 mg/dL (70-99) O2 Saturation 93 % (92-99) Arterial Blood pH 7.33 (7.35-7.45) Arterial Blood pCO2 at Patient Temp 46 mmHg (35-46) Arterial Blood pO2 at Patient Temp 75 mmHg (75-108) Arterial Blood HCO3 24 mmol/L (21-28) Arterial Blood Base Excess -3 mmol/L (-3-3) FiO2 40 Results All relevant outside records, renal labs, imaging studies, telemetry/EKG's were reviewed. RANDALL GALVIN MD Jun 16, 2019 09:33
--- NOTE | 2019-06-16 10:06 | PDOC ---
MAXIMILIANO GREENBERG GARNISHER 06/16/19 1006: SURGICAL PROGRESS NOTE Subjective vent, sedated d/w nursing Vital Signs Vital Signs Date Time Temp Pulse Resp B/P (MAP) Pulse Ox O2 Delivery O2 Flow Rate FiO2 06/16/19 09:52 95 Ventilator 06/16/19 09:40 103 20 131/77 (95) 06/16/19 07:53 99.3 99.3 06/16/19 04:37 3.0 I&O Intake and Output 06/16/19 07:00 Intake Total 1138 ml Output Total 3750 ml Balance -2612 ml IV Total 1138 ml Output Urine Total 2600 ml Gastric Drainage Total 1150 ml General: No acute distress Abdomen: Other (distended ) Labs Laboratory Tests Test 06/14/19 14:00 06/14/19 15:09 06/14/19 17:00 06/14/19 17:10 O2 Saturation 97 % (92-99) Arterial Blood pH 7.36 (7.35-7.45) Arterial Blood pCO2 at Patient Temp 46 mmHg (35-46) Arterial Blood pO2 at Patient Temp 100 mmHg (75-108) Arterial Blood HCO3 25 mmol/L (21-28) Arterial Blood Base Excess 0 mmol/L (-3-3) FiO2 60 Glucose (Fingerstick) 132 mg/dL (70-99) 159 mg/dL (70-99) Calcium Level 6.5 mg/dL (8.5-10.1) Test 06/14/19 23:12 06/15/19 04:30 06/15/19 07:00 06/15/19 07:31 Glucose (Fingerstick) 238 mg/dL (70-99) 226 mg/dL (70-99) 198 mg/dL (70-99) White Blood Count 9.9 x10^3/uL (4.0-11.0) Red Blood Count 3.85 x10^6/uL (4.30-5.70) Hemoglobin 11.5 g/dL (13.0-17.5) Hematocrit 33.5 % (39.0-53.0) Mean Corpuscular Volume 87 fL (79-100) Mean Corpuscular Hemoglobin 30 pg (25-35) Mean Corpuscular Hemoglobin Concent 34 g/dL (31-37) Red Cell Distribution Width 14.3 % (11.5-14.5) Platelet Count 122 x10^3/uL (140-400) Neutrophils (%) (Auto) 79 % (31-73) Lymphocytes (%) (Auto) 10 % (24-48) Monocytes (%) (Auto) 10 % (0-9) Eosinophils (%) (Auto) 1 % (0-3) Basophils (%) (Auto) 0 % (0-3) Neutrophils # (Auto) 7.8 x10^3/uL (1.8-7.7) Lymphocytes # (Auto) 1.0 x10^3/uL (1.0-4.8) Monocytes # (Auto) 1.0 x10^3/uL (0.0-1.1) Eosinophils # (Auto) 0.1 x10^3/uL (0.0-0.7) Basophils # (Auto) 0.0 x10^3/uL (0.0-0.2) Sodium Level 138 mmol/L (136-145) Potassium Level 4.3 mmol/L (3.5-5.1) Chloride Level 103 mmol/L (98-107) Carbon Dioxide Level 26 mmol/L (21-32) Anion Gap 9 (6-14) Blood Urea Nitrogen 62 mg/dL (8-26) Creatinine 3.3 mg/dL (0.7-1.3) Estimated GFR (Cockcroft-Gault) 23.4 BUN/Creatinine Ratio 18 (6-20) Glucose Level 209 mg/dL (70-99) Calcium Level 5.0 mg/dL (8.5-10.1) Phosphorus Level 3.4 mg/dL (2.6-4.7) Total Bilirubin 4.2 mg/dL (0.2-1.0) Aspartate Amino Transf (AST/SGOT) 128 U/L (15-37) Alanine Aminotransferase (ALT/SGPT) 66 U/L (16-63) Alkaline Phosphatase 54 U/L (46-116) Total Protein 5.7 g/dL (6.4-8.2) Albumin 2.6 g/dL (3.4-5.0) Albumin/Globulin Ratio 0.8 (1.0-1.7) Test 06/15/19 07:45 06/15/19 11:36 06/15/19 14:05 06/15/19 17:51 O2 Saturation 95 % (92-99) Arterial Blood pH 7.40 (7.35-7.45) Arterial Blood pCO2 at Patient Temp 38 mmHg (35-46) Arterial Blood pO2 at Patient Temp 81 mmHg (75-108) Arterial Blood HCO3 23 mmol/L (21-28) Arterial Blood Base Excess -2 mmol/L (-3-3) FiO2 40% Glucose (Fingerstick) 226 mg/dL (70-99) 182 mg/dL (70-99) Ionized Calcium 0.69 mmol/L (1.13-1.32) Test 06/15/19 20:02 06/15/19 23:55 06/16/19 00:01 06/16/19 04:22 Glucose (Fingerstick) 171 mg/dL (70-99) 203 mg/dL (70-99) 189 mg/dL (70-99) Ionized Calcium 0.77 mmol/L (1.13-1.32) Test 06/16/19 05:00 06/16/19 07:36 06/16/19 07:50 White Blood Count 12.6 x10^3/uL (4.0-11.0) Red Blood Count 3.72 x10^6/uL (4.30-5.70) Hemoglobin 11.1 g/dL (13.0-17.5) Hematocrit 32.9 % (39.0-53.0) Mean Corpuscular Volume 89 fL (79-100) Mean Corpuscular Hemoglobin 30 pg (25-35) Mean Corpuscular Hemoglobin Concent 34 g/dL (31-37) Red Cell Distribution Width 14.0 % (11.5-14.5) Platelet Count 156 x10^3/uL (140-400) Neutrophils (%) (Auto) 89 % (31-73) Lymphocytes (%) (Auto) 3 % (24-48) Monocytes (%) (Auto) 8 % (0-9) Eosinophils (%) (Auto) 0 % (0-3) Basophils (%) (Auto) 0 % (0-3) Neutrophils # (Auto) 11.1 x10^3/uL (1.8-7.7) Lymphocytes # (Auto) 0.4 x10^3/uL (1.0-4.8) Monocytes # (Auto) 1.0 x10^3/uL (0.0-1.1) Eosinophils # (Auto) 0.0 x10^3/uL (0.0-0.7) Basophils # (Auto) 0.0 x10^3/uL (0.0-0.2) Sodium Level 144 mmol/L (136-145) Potassium Level 4.6 mmol/L (3.5-5.1) Chloride Level 107 mmol/L (98-107) Carbon Dioxide Level 26 mmol/L (21-32) Anion Gap 11 (6-14) Blood Urea Nitrogen 59 mg/dL (8-26) Creatinine 2.4 mg/dL (0.7-1.3) Estimated GFR (Cockcroft-Gault) 35.0 BUN/Creatinine Ratio 25 (6-20) Glucose Level 209 mg/dL (70-99) Calcium Level 6.6 mg/dL (8.5-10.1) Ionized Calcium 0.83 mmol/L (1.13-1.32) Phosphorus Level 4.2 mg/dL (2.6-4.7) Magnesium Level 2.7 mg/dL (1.8-2.4) Total Bilirubin 5.5 mg/dL (0.2-1.0) Aspartate Amino Transf (AST/SGOT) 137 U/L (15-37) Alanine Aminotransferase (ALT/SGPT) 66 U/L (16-63) Alkaline Phosphatase 58 U/L (46-116) Total Protein 6.0 g/dL (6.4-8.2) Albumin 2.3 g/dL (3.4-5.0) Albumin/Globulin Ratio 0.6 (1.0-1.7) Lipase 475 U/L (73-393) Glucose (Fingerstick) 210 mg/dL (70-99) O2 Saturation 93 % (92-99) Arterial Blood pH 7.33 (7.35-7.45) Arterial Blood pCO2 at Patient Temp 46 mmHg (35-46) Arterial Blood pO2 at Patient Temp 75 mmHg (75-108) Arterial Blood HCO3 24 mmol/L (21-28) Arterial Blood Base Excess -3 mmol/L (-3-3) FiO2 40 Laboratory Tests Test 06/15/19 11:36 06/15/19 14:05 06/15/19 17:51 06/15/19 20:02 Glucose (Fingerstick) 226 mg/dL (70-99) 182 mg/dL (70-99) 171 mg/dL (70-99) Ionized Calcium 0.69 mmol/L (1.13-1.32) Test 06/15/19 23:55 06/16/19 00:01 06/16/19 04:22 06/16/19 05:00 Glucose (Fingerstick) 203 mg/dL (70-99) 189 mg/dL (70-99) Ionized Calcium 0.77 mmol/L (1.13-1.32) 0.83 mmol/L (1.13-1.32) White Blood Count 12.6 x10^3/uL (4.0-11.0) Red Blood Count 3.72 x10^6/uL (4.30-5.70) Hemoglobin 11.1 g/dL (13.0-17.5) Hematocrit 32.9 % (39.0-53.0) Mean Corpuscular Volume 89 fL (79-100) Mean Corpuscular Hemoglobin 30 pg (25-35) Mean Corpuscular Hemoglobin Concent 34 g/dL (31-37) Red Cell Distribution Width 14.0 % (11.5-14.5) Platelet Count 156 x10^3/uL (140-400) Neutrophils (%) (Auto) 89 % (31-73) Lymphocytes (%) (Auto) 3 % (24-48) Monocytes (%) (Auto) 8 % (0-9) Eosinophils (%) (Auto) 0 % (0-3) Basophils (%) (Auto) 0 % (0-3) Neutrophils # (Auto) 11.1 x10^3/uL (1.8-7.7) Lymphocytes # (Auto) 0.4 x10^3/uL (1.0-4.8) Monocytes # (Auto) 1.0 x10^3/uL (0.0-1.1) Eosinophils # (Auto) 0.0 x10^3/uL (0.0-0.7) Basophils # (Auto) 0.0 x10^3/uL (0.0-0.2) Sodium Level 144 mmol/L (136-145) Potassium Level 4.6 mmol/L (3.5-5.1) Chloride Level 107 mmol/L (98-107) Carbon Dioxide Level 26 mmol/L (21-32) Anion Gap 11 (6-14) Blood Urea Nitrogen 59 mg/dL (8-26) Creatinine 2.4 mg/dL (0.7-1.3) Estimated GFR (Cockcroft-Gault) 35.0 BUN/Creatinine Ratio 25 (6-20) Glucose Level 209 mg/dL (70-99) Calcium Level 6.6 mg/dL (8.5-10.1) Phosphorus Level 4.2 mg/dL (2.6-4.7) Magnesium Level 2.7 mg/dL (1.8-2.4) Total Bilirubin 5.5 mg/dL (0.2-1.0) Aspartate Amino Transf (AST/SGOT) 137 U/L (15-37) Alanine Aminotransferase (ALT/SGPT) 66 U/L (16-63) Alkaline Phosphatase 58 U/L (46-116) Total Protein 6.0 g/dL (6.4-8.2) Albumin 2.3 g/dL (3.4-5.0) Albumin/Globulin Ratio 0.6 (1.0-1.7) Lipase 475 U/L (73-393) Test 06/16/19 07:36 06/16/19 07:50 Glucose (Fingerstick) 210 mg/dL (70-99) O2 Saturation 93 % (92-99) Arterial Blood pH 7.33 (7.35-7.45) Arterial Blood pCO2 at Patient Temp 46 mmHg (35-46) Arterial Blood pO2 at Patient Temp 75 mmHg (75-108) Arterial Blood HCO3 24 mmol/L (21-28) Arterial Blood Base Excess -3 mmol/L (-3-3) FiO2 40 Problem List Problems Medical Problems: (1) Acute pancreatitis Status: Acute (2) Nausea & vomiting Status: Acute Assessment/Plan medical management supportive measures will have KARLA Moon MD 06/16/19 1259: SURGICAL PROGRESS NOTE Assessment/Plan Pt seen and examined. Agree with Ms. Greenberg's note Pt stable on vent abd distended, NTTP cont supportive care, eventual cholecystectomy d/w family. DIONICIOMAXIMILIANO Natalie GARNISHER Jun 16, 2019 10:06 KARLA CALL MD Jun 16, 2019 12:59
[2019-06-16] MEDS: ACETAMINOPHEN 650 MG SUPP.RECT. PR PRN (10:13)
--- NOTE | 2019-06-16 10:39 | PDOC ---
PROGRESS NOTES History of Present Illness History of Present Illness ASSESSMENT AND PLAN: Acute hypoxemic respiratory failure, Severe pancreatitis. , GALLSTONE pancreatitis Severe biliary pancreatitis. Resp failure Renal failure MORBID OBESITY ACUTE HYPOXIC RESP FAILURE// ARDS HYPERKALEMIA hypocalcemia per nephrology replacement TRANSAMINITIS LACTIC ACIDOSIS SEPSIS VOLUME OVERLOAD HYPERGLYCEMIA, UNCONTROLLED HYPOCALCEMIA, REPLACE PER RENAL admitted consult GI, IV fluids, p.r.n. antiemetics, home medications, deep venous thrombosis prophylaxis. Full code. nephrology consult gen surgery consult GI CONSULT O2 SUPPORT lactic acid with reflex iv zosyn per pharmacy ID CONSULT BLOOD CULT BICARB DRIP temp dialysis catheter PULM CONSULT INSULIN DRIP PRN 06/15 sedated on vent D/W RN // family in room PROGNOSIS: Guarded. 37 MIN CC TIME Vitals Vitals Vital Signs Date Time Temp Pulse Resp B/P (MAP) Pulse Ox O2 Delivery O2 Flow Rate FiO2 06/16/19 10:15 18 40 Ventilator 06/16/19 09:40 103 131/77 (95) 06/16/19 07:53 99.3 99.3 06/16/19 04:37 3.0 Physical Exam Physical Exam GENERAL: Sedated, orally intubated on vent, mitts HEENT: Pupils equal, small. OGT/ETT in place NECK: Supple LUNGS: Diminished aeration bases HEART: S1, S2, regular, no murmurs. ABDOMEN: Distended, tight, no guarding to palpation,BS hypoactive : [place] EXTREMITIES: trace edema, no cyanosis. SCDs bilaterally SKIN: Warm, dry. 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 COMPARISON STUDY: 06/14/2019. FINDINGS: Life Support Devices: Stable endotracheal tube, enteric tube, and right IJ dual-lumen catheter. Lungs: Low lung volume. Improving bilateral basilar predominant opacities. Stable pulmonary vasculature. Pleura: Stable small bilateral pleural effusions. Heart and Mediastinum: Stable cardiomediastinal silhouette and great vessels. IMPRESSION: 1. Stable left support devices. 2. Improving bilateral basilar predominant opacities. 3. Stable small bilateral effusions. Electronically signed by: Shira Tinsley MD (06/15/2019 8:20 AM) [id number] DICTATED and SIGNED BY: SHIRA TINLSEY MD DATE: 06/15/19819 Laboratory Tests Test 06/15/19 11:36 06/15/19 14:05 06/15/19 17:51 06/15/19 20:02 Glucose (Fingerstick) 226 mg/dL (70-99) 182 mg/dL (70-99) 171 mg/dL (70-99) Ionized Calcium 0.69 mmol/L (1.13-1.32) Test 06/15/19 23:55 06/16/19 00:01 06/16/19 04:22 06/16/19 05:00 Glucose (Fingerstick) 203 mg/dL (70-99) 189 mg/dL (70-99) Ionized Calcium 0.77 mmol/L (1.13-1.32) 0.83 mmol/L (1.13-1.32) White Blood Count 12.6 x10^3/uL (4.0-11.0) Red Blood Count 3.72 x10^6/uL (4.30-5.70) Hemoglobin 11.1 g/dL (13.0-17.5) Hematocrit 32.9 % (39.0-53.0) Mean Corpuscular Volume 89 fL (79-100) Mean Corpuscular Hemoglobin 30 pg (25-35) Mean Corpuscular Hemoglobin Concent 34 g/dL (31-37) Red Cell Distribution Width 14.0 % (11.5-14.5) Platelet Count 156 x10^3/uL (140-400) Neutrophils (%) (Auto) 89 % (31-73) Lymphocytes (%) (Auto) 3 % (24-48) Monocytes (%) (Auto) 8 % (0-9) Eosinophils (%) (Auto) 0 % (0-3) Basophils (%) (Auto) 0 % (0-3) Neutrophils # (Auto) 11.1 x10^3/uL (1.8-7.7) Lymphocytes # (Auto) 0.4 x10^3/uL (1.0-4.8) Monocytes # (Auto) 1.0 x10^3/uL (0.0-1.1) Eosinophils # (Auto) 0.0 x10^3/uL (0.0-0.7) Basophils # (Auto) 0.0 x10^3/uL (0.0-0.2) Sodium Level 144 mmol/L (136-145) Potassium Level 4.6 mmol/L (3.5-5.1) Chloride Level 107 mmol/L (98-107) Carbon Dioxide Level 26 mmol/L (21-32) Anion Gap 11 (6-14) Blood Urea Nitrogen 59 mg/dL (8-26) Creatinine 2.4 mg/dL (0.7-1.3) Estimated GFR (Cockcroft-Gault) 35.0 BUN/Creatinine Ratio 25 (6-20) Glucose Level 209 mg/dL (70-99) Calcium Level 6.6 mg/dL (8.5-10.1) Phosphorus Level 4.2 mg/dL (2.6-4.7) Magnesium Level 2.7 mg/dL (1.8-2.4) Total Bilirubin 5.5 mg/dL (0.2-1.0) Aspartate Amino Transf (AST/SGOT) 137 U/L (15-37) Alanine Aminotransferase (ALT/SGPT) 66 U/L (16-63) Alkaline Phosphatase 58 U/L (46-116) Total Protein 6.0 g/dL (6.4-8.2) Albumin 2.3 g/dL (3.4-5.0) Albumin/Globulin Ratio 0.6 (1.0-1.7) Lipase 475 U/L (73-393) Test 06/16/19 07:36 06/16/19 07:50 Glucose (Fingerstick) 210 mg/dL (70-99) O2 Saturation 93 % (92-99) Arterial Blood pH 7.33 (7.35-7.45) Arterial Blood pCO2 at Patient Temp 46 mmHg (35-46) Arterial Blood pO2 at Patient Temp 75 mmHg (75-108) Arterial Blood HCO3 24 mmol/L (21-28) Arterial Blood Base Excess -3 mmol/L (-3-3) FiO2 40 Assessment and Plan Assessmemt and Plan Problems Medical Problems: (1) Acute pancreatitis Status: Acute (2) Nausea & vomiting Status: Acute Comment Review of Relevant I have reviewed the following items alexandra (where applicable) has been applied. Labs Laboratory Tests Test 06/14/19 14:00 06/14/19 15:09 06/14/19 17:00 06/14/19 17:10 O2 Saturation 97 % (92-99) Arterial Blood pH 7.36 (7.35-7.45) Arterial Blood pCO2 at Patient Temp 46 mmHg (35-46) Arterial Blood pO2 at Patient Temp 100 mmHg (75-108) Arterial Blood HCO3 25 mmol/L (21-28) Arterial Blood Base Excess 0 mmol/L (-3-3) FiO2 60 Glucose (Fingerstick) 132 mg/dL (70-99) 159 mg/dL (70-99) Calcium Level 6.5 mg/dL (8.5-10.1) Test 06/14/19 23:12 06/15/19 04:30 06/15/19 07:00 06/15/19 07:31 Glucose (Fingerstick) 238 mg/dL (70-99) 226 mg/dL (70-99) 198 mg/dL (70-99) White Blood Count 9.9 x10^3/uL (4.0-11.0) Red Blood Count 3.85 x10^6/uL (4.30-5.70) Hemoglobin 11.5 g/dL (13.0-17.5) Hematocrit 33.5 % (39.0-53.0) Mean Corpuscular Volume 87 fL (79-100) Mean Corpuscular Hemoglobin 30 pg (25-35) Mean Corpuscular Hemoglobin Concent 34 g/dL (31-37) Red Cell Distribution Width 14.3 % (11.5-14.5) Platelet Count 122 x10^3/uL (140-400) Neutrophils (%) (Auto) 79 % (31-73) Lymphocytes (%) (Auto) 10 % (24-48) Monocytes (%) (Auto) 10 % (0-9) Eosinophils (%) (Auto) 1 % (0-3) Basophils (%) (Auto) 0 % (0-3) Neutrophils # (Auto) 7.8 x10^3/uL (1.8-7.7) Lymphocytes # (Auto) 1.0 x10^3/uL (1.0-4.8) Monocytes # (Auto) 1.0 x10^3/uL (0.0-1.1) Eosinophils # (Auto) 0.1 x10^3/uL (0.0-0.7) Basophils # (Auto) 0.0 x10^3/uL (0.0-0.2) Sodium Level 138 mmol/L (136-145) Potassium Level 4.3 mmol/L (3.5-5.1) Chloride Level 103 mmol/L (98-107) Carbon Dioxide Level 26 mmol/L (21-32) Anion Gap 9 (6-14) Blood Urea Nitrogen 62 mg/dL (8-26) Creatinine 3.3 mg/dL (0.7-1.3) Estimated GFR (Cockcroft-Gault) 23.4 BUN/Creatinine Ratio 18 (6-20) Glucose Level 209 mg/dL (70-99) Calcium Level 5.0 mg/dL (8.5-10.1) Phosphorus Level 3.4 mg/dL (2.6-4.7) Total Bilirubin 4.2 mg/dL (0.2-1.0) Aspartate Amino Transf (AST/SGOT) 128 U/L (15-37) Alanine Aminotransferase (ALT/SGPT) 66 U/L (16-63) Alkaline Phosphatase 54 U/L (46-116) Total Protein 5.7 g/dL (6.4-8.2) Albumin 2.6 g/dL (3.4-5.0) Albumin/Globulin Ratio 0.8 (1.0-1.7) Test 06/15/19 07:45 06/15/19 11:36 06/15/19 14:05 06/15/19 17:51 O2 Saturation 95 % (92-99) Arterial Blood pH 7.40 (7.35-7.45) Arterial Blood pCO2 at Patient Temp 38 mmHg (35-46) Arterial Blood pO2 at Patient Temp 81 mmHg (75-108) Arterial Blood HCO3 23 mmol/L (21-28) Arterial Blood Base Excess -2 mmol/L (-3-3) FiO2 40% Glucose (Fingerstick) 226 mg/dL (70-99) 182 mg/dL (70-99) Ionized Calcium 0.69 mmol/L (1.13-1.32) Test 06/15/19 20:02 06/15/19 23:55 06/16/19 00:01 06/16/19 04:22 Glucose (Fingerstick) 171 mg/dL (70-99) 203 mg/dL (70-99) 189 mg/dL (70-99) Ionized Calcium 0.77 mmol/L (1.13-1.32) Test 06/16/19 05:00 06/16/19 07:36 06/16/19 07:50 White Blood Count 12.6 x10^3/uL (4.0-11.0) Red Blood Count 3.72 x10^6/uL (4.30-5.70) Hemoglobin 11.1 g/dL (13.0-17.5) Hematocrit 32.9 % (39.0-53.0) Mean Corpuscular Volume 89 fL (79-100) Mean Corpuscular Hemoglobin 30 pg (25-35) Mean Corpuscular Hemoglobin Concent 34 g/dL (31-37) Red Cell Distribution Width 14.0 % (11.5-14.5) Platelet Count 156 x10^3/uL (140-400) Neutrophils (%) (Auto) 89 % (31-73) Lymphocytes (%) (Auto) 3 % (24-48) Monocytes (%) (Auto) 8 % (0-9) Eosinophils (%) (Auto) 0 % (0-3) Basophils (%) (Auto) 0 % (0-3) Neutrophils # (Auto) 11.1 x10^3/uL (1.8-7.7) Lymphocytes # (Auto) 0.4 x10^3/uL (1.0-4.8) Monocytes # (Auto) 1.0 x10^3/uL (0.0-1.1) Eosinophils # (Auto) 0.0 x10^3/uL (0.0-0.7) Basophils # (Auto) 0.0 x10^3/uL (0.0-0.2) Sodium Level 144 mmol/L (136-145) Potassium Level 4.6 mmol/L (3.5-5.1) Chloride Level 107 mmol/L (98-107) Carbon Dioxide Level 26 mmol/L (21-32) Anion Gap 11 (6-14) Blood Urea Nitrogen 59 mg/dL (8-26) Creatinine 2.4 mg/dL (0.7-1.3) Estimated GFR (Cockcroft-Gault) 35.0 BUN/Creatinine Ratio 25 (6-20) Glucose Level 209 mg/dL (70-99) Calcium Level 6.6 mg/dL (8.5-10.1) Ionized Calcium 0.83 mmol/L (1.13-1.32) Phosphorus Level 4.2 mg/dL (2.6-4.7) Magnesium Level 2.7 mg/dL (1.8-2.4) Total Bilirubin 5.5 mg/dL (0.2-1.0) Aspartate Amino Transf (AST/SGOT) 137 U/L (15-37) Alanine Aminotransferase (ALT/SGPT) 66 U/L (16-63) Alkaline Phosphatase 58 U/L (46-116) Total Protein 6.0 g/dL (6.4-8.2) Albumin 2.3 g/dL (3.4-5.0) Albumin/Globulin Ratio 0.6 (1.0-1.7) Lipase 475 U/L (73-393) Glucose (Fingerstick) 210 mg/dL (70-99) O2 Saturation 93 % (92-99) Arterial Blood pH 7.33 (7.35-7.45) Arterial Blood pCO2 at Patient Temp 46 mmHg (35-46) Arterial Blood pO2 at Patient Temp 75 mmHg (75-108) Arterial Blood HCO3 24 mmol/L (21-28) Arterial Blood Base Excess -3 mmol/L (-3-3) FiO2 40 Laboratory Tests Test 06/15/19 11:36 06/15/19 14:05 06/15/19 17:51 06/15/19 20:02 Glucose (Fingerstick) 226 mg/dL (70-99) 182 mg/dL (70-99) 171 mg/dL (70-99) Ionized Calcium 0.69 mmol/L (1.13-1.32) Test 06/15/19 23:55 06/16/19 00:01 06/16/19 04:22 06/16/19 05:00 Glucose (Fingerstick) 203 mg/dL (70-99) 189 mg/dL (70-99) Ionized Calcium 0.77 mmol/L (1.13-1.32) 0.83 mmol/L (1.13-1.32) White Blood Count 12.6 x10^3/uL (4.0-11.0) Red Blood Count 3.72 x10^6/uL (4.30-5.70) Hemoglobin 11.1 g/dL (13.0-17.5) Hematocrit 32.9 % (39.0-53.0) Mean Corpuscular Volume 89 fL (79-100) Mean Corpuscular Hemoglobin 30 pg (25-35) Mean Corpuscular Hemoglobin Concent 34 g/dL (31-37) Red Cell Distribution Width 14.0 % (11.5-14.5) Platelet Count 156 x10^3/uL (140-400) Neutrophils (%) (Auto) 89 % (31-73) Lymphocytes (%) (Auto) 3 % (24-48) Monocytes (%) (Auto) 8 % (0-9) Eosinophils (%) (Auto) 0 % (0-3) Basophils (%) (Auto) 0 % (0-3) Neutrophils # (Auto) 11.1 x10^3/uL (1.8-7.7) Lymphocytes # (Auto) 0.4 x10^3/uL (1.0-4.8) Monocytes # (Auto) 1.0 x10^3/uL (0.0-1.1) Eosinophils # (Auto) 0.0 x10^3/uL (0.0-0.7) Basophils # (Auto) 0.0 x10^3/uL (0.0-0.2) Sodium Level 144 mmol/L (136-145) Potassium Level 4.6 mmol/L (3.5-5.1) Chloride Level 107 mmol/L (98-107) Carbon Dioxide Level 26 mmol/L (21-32) Anion Gap 11 (6-14) Blood Urea Nitrogen 59 mg/dL (8-26) Creatinine 2.4 mg/dL (0.7-1.3) Estimated GFR (Cockcroft-Gault) 35.0 BUN/Creatinine Ratio 25 (6-20) Glucose Level 209 mg/dL (70-99) Calcium Level 6.6 mg/dL (8.5-10.1) Phosphorus Level 4.2 mg/dL (2.6-4.7) Magnesium Level 2.7 mg/dL (1.8-2.4) Total Bilirubin 5.5 mg/dL (0.2-1.0) Aspartate Amino Transf (AST/SGOT) 137 U/L (15-37) Alanine Aminotransferase (ALT/SGPT) 66 U/L (16-63) Alkaline Phosphatase 58 U/L (46-116) Total Protein 6.0 g/dL (6.4-8.2) Albumin 2.3 g/dL (3.4-5.0) Albumin/Globulin Ratio 0.6 (1.0-1.7) Lipase 475 U/L (73-393) Test 06/16/19 07:36 06/16/19 07:50 Glucose (Fingerstick) 210 mg/dL (70-99) O2 Saturation 93 % (92-99) Arterial Blood pH 7.33 (7.35-7.45) Arterial Blood pCO2 at Patient Temp 46 mmHg (35-46) Arterial Blood pO2 at Patient Temp 75 mmHg (75-108) Arterial Blood HCO3 24 mmol/L (21-28) Arterial Blood Base Excess -3 mmol/L (-3-3) FiO2 40 Microbiology 06/14/19 Blood Culture - Preliminary, Resulted NO GROWTH AFTER 1 DAY Medications Current Medications Morphine Sulfate (Morphine Sulfate) 4 mg PRN Q15MIN PRN IV/SQ PAIN GREATER THAN 3/10 Last administered on 06/11/19at 04:58; Start 06/11/19 at 04:30; Stop 06/11/19 at 16:47; Status DC Sodium Chloride 1,000 ml @ 1,000 mls/hr Q1H IV Last administered on 06/11/19at 04:34; Start 06/11/19 at 04:30; Stop 06/11/19 at 05:29; Status DC Ondansetron HCl (Zofran) 4 mg 1X ONCE IV Last administered on 06/11/19at 04:33; Start 06/11/19 at 04:30; Stop 06/11/19 at 04:33; Status DC Iohexol (Omnipaque 350 Mg/ml) 100 ml 1X ONCE IV Last administered on 06/11/19at 05:01; Start 06/11/19 at 04:45; Stop 06/11/19 at 04:46; Status DC Info (CONTRAST GIVEN -- Rx MONITORING) 1 each PRN DAILY PRN MC SEE COMMENTS; Start 06/11/19 at 04:45; Stop 06/13/19 at 04:44; Status DC Fentanyl Citrate (Fentanyl 2ml Vial) 100 mcg STK-MED ONCE .ROUTE ; Start 06/11/19 at 04:42; Stop 06/11/19 at 04:42; Status DC Fentanyl Citrate (Fentanyl 2ml Vial) 50 mcg 1X ONCE IVP Last administered on 06/11/19at 04:45; Start 06/11/19 at 05:00; Stop 06/11/19 at 05:01; Status DC Ondansetron HCl (Zofran) 4 mg PRN Q8HRS PRN IV NAUSEA/VOMITING Last administered on 06/12/19at 03:29; Start 06/11/19 at 05:45; Stop 06/12/19 at 05:44; Status DC Morphine Sulfate (Morphine Sulfate) 4 mg PRN Q2HR PRN IV PAIN Last administered on 06/11/19at 07:37; Start 06/11/19 at 05:45; Stop 06/11/19 at 11:54; Status DC Sodium Chloride 1,000 ml @ 150 mls/hr Q6H40M IV Last administered on 06/12/19at 03:28; Start 06/11/19 at 05:45; Stop 06/12/19 at 11:01; Status DC Hydromorphone HCl (Dilaudid) 0.5 mg PRN Q3HRS PRN IV PAIN Last administered on 06/11/19at 08:38; Start 06/11/19 at 05:45; Stop 06/11/19 at 09:12; Status DC Potassium Chloride/Water 100 ml @ 100 mls/hr Q1H IV Last administered on 06/11/19at 08:41; Start 06/11/19 at 06:00; Stop 06/11/19 at 07:59; Status DC Hydromorphone HCl (Dilaudid) 1 mg PRN Q3HRS PRN IV PAIN Last administered on 06/11/19at 09:29; Start 06/11/19 at 09:15; Stop 06/11/19 at 11:54; Status DC Prochlorperazine Edisylate (Compazine) 10 mg PRN Q8HRS PRN IV NAUSEA/VOMITING Last administered on 06/12/19at 14:59; Start 06/11/19 at 12:00 Hydromorphone HCl (Dilaudid) 1 mg PRN Q2HRS PRN IV PAIN Last administered on 06/14/19at 13:00; Start 06/11/19 at 12:00 Pantoprazole Sodium (PROTONIX VIAL for IV PUSH) 40 mg DAILYAC IVP Last administered on 06/12/19at 08:29; Start 06/11/19 at 15:00; Stop 06/12/19 at 16:23; Status DC Lorazepam (Ativan Inj) 1 mg PRN Q6HRS PRN IVP ANXIETY / AGITATION Last administered on 06/14/19at 13:00; Start 06/11/19 at 18:15 Hydralazine HCl (Apresoline Inj) 10 mg PRN Q6HRS PRN IVP ELEVATED BP, SEE COMMENTS Last administered on 06/11/19at 18:22; Start 06/11/19 at 18:15 Nystatin (Nystop) 1 devorah PRN QID PRN TP FUNGAL RASH Last administered on 06/11/19at 23:19; Start 06/11/19 at 23:15 Sodium Chloride 1,000 ml @ 1,000 mls/hr 1X ONCE IV Last administered on 06/12/19at 05:27; Start 06/12/19 at 06:00; Stop 06/12/19 at 06:59; Status DC Sodium Chloride 1,000 ml @ 1,000 mls/hr 1X ONCE IV Last administered on 06/12/19at 05:25; Start 06/12/19 at 05:00; Stop 06/12/19 at 05:59; Status DC Sodium Chloride 1,000 ml @ 200 mls/hr Q5H IV Last administered on 06/12/19at 06:36; Start 06/12/19 at 07:00; Stop 06/12/19 at 11:01; Status DC Sodium Bicarbonate 50 meq/Sodium Chloride 1,050 ml @ 150 mls/hr Q7H IV Last administered on 06/13/19at 04:16; Start 06/12/19 at 11:00; Stop 06/13/19 at 14:48; Status DC Amino Acids/ Glycerin/ Electrolytes 1,000 ml @ 80 mls/hr [id number] IV ; Start 06/12/19 at 10:00; Status UNV Amino Acids/ Electrolytes/ Dextrose 1,000 ml @ 80 mls/hr [id number] IV ; Start 06/12/19 at 10:15 Piperacillin Sod/ Tazobactam Sod (Zosyn Per Pharmacy) 1 each PRN DAILY PRN MC SEE COMMENTS; Start 06/12/19 at 13:15; Stop 06/12/19 at 19:16; Status DC Piperacillin Sod/ Tazobactam Sod 2.25 gm/Sodium Chloride 50 ml @ 100 mls/hr Q6HRS IV Last administered on 06/12/19at 13:48; Start 06/12/19 at 13:30; Stop 06/12/19 at 19:15; Status DC Sodium Bicarbonate (Sodium Bicarb Adult 8.4% Syr) 50 meq 1X ONCE IV Last administered on 06/12/19at 16:12; Start 06/12/19 at 16:00; Stop 06/12/19 at 16:01; Status DC Calcium Gluconate 1000 mg/Sodium Chloride 110 ml @ 220 mls/hr 1X ONCE IV Last administered on 06/12/19at 16:13; Start 06/12/19 at 16:00; Stop 06/12/19 at 16:29; Status DC Dextrose (Dextrose 50%-Water Syringe) 25 gm 1X ONCE IV Last administered on 06/12/19at 16:13; Start 06/12/19 at 16:00; Stop 06/12/19 at 16:01; Status DC Insulin Human Regular (HumuLIN R VIAL) 10 unit 1X ONCE IV Last administered on 06/12/19at 16:14; Start 06/12/19 at 16:00; Stop 06/12/19 at 16:01; Status DC Furosemide (Lasix) 40 mg 1X ONCE IVP Last administered on 06/12/19at 16:13; Start 06/12/19 at 16:00; Stop 06/12/19 at 16:01; Status DC Pantoprazole Sodium (PROTONIX VIAL for IV PUSH) 40 mg [id number] IVP Last administered on 06/13/19at 06:21; Start 06/12/19 at 18:00; Stop 06/13/19 at 18:49; Status DC Meropenem 500 mg/ Sodium Chloride 50 ml @ 100 mls/hr Q12HR IV Last administered on 06/16/19at 07:39; Start 06/12/19 at 21:00 Calcium Gluconate 1000 mg/Sodium Chloride 110 ml @ 220 mls/hr 1X ONCE IV Last administered on 06/12/19at 20:35; Start 06/12/19 at 19:15; Stop 06/12/19 at 19:44; Status DC Lidocaine HCl (Buffered Lidocaine 1%) 3 ml STK-MED ONCE .ROUTE ; Start 06/13/19 at 08:47; Stop 06/13/19 at 08:47; Status DC Lidocaine HCl (Buffered Lidocaine 1%) 6 ml 1X ONCE INJ Last administered on 06/13/19at 09:23; Start 06/13/19 at 09:30; Stop 06/13/19 at 09:31; Status DC Insulin Human Lispro (HumaLOG) 0-7 UNITS TIDWMEALS SQ Last administered on 06/13/19at 12:14; Start 06/13/19 at 12:00; Stop 06/14/19 at 23:29; Status DC Dextrose (Dextrose 50%-Water Syringe) 12.5 gm PRN Q15MIN PRN IV SEE COMMENTS; Start 06/13/19 at 11:15; Stop 06/14/19 at 23:29; Status DC Insulin Human Regular 100 unit/ Sodium Chloride 101 ml @ 0 mls/hr CONT PRN IV SEE I/O RECORD Last administered on 06/13/19at 15:03; Start 06/13/19 at 14:15 Sodium Chloride 1,000 ml @ 1,000 mls/hr Q1H PRN IV hypotension; Start 06/13/19 at 14:00; Stop 06/13/19 at 19:59; Status DC Sodium Chloride 1,000 ml @ 400 mls/hr Q2H30M PRN IV PATENCY; Start 06/13/19 at 14:00; Stop 06/14/19 at 01:59; Status DC Info (PHARMACY MONITORING -- do not chart) 1 each PRN DAILY PRN MC SEE COMMENTS; Start 06/13/19 at 14:45; Stop 06/13/19 at 14:51; Status DC Info (PHARMACY MONITORING -- do not chart) 1 each PRN DAILY PRN MC SEE COMMENTS; Start 06/13/19 at 14:45 Pantoprazole Sodium (PROTONIX VIAL for IV PUSH) 40 mg [id number] IVP Last administered on 06/16/19at 06:02; Start 06/13/19 at 21:00 Dexmedetomidine HCl 400 mcg/ Sodium Chloride 100 ml @ 0 mls/hr CONT PRN IV PER PROTOCOL Last administered on 06/16/19at 01:42; Start 06/13/19 at 19:00 Sodium Chloride 500 ml @ 500 mls/hr 1X PRN PRN IV SEE COMMENTS; Start 06/13/19 at 19:00 Atropine Sulfate (ATROPINE 0.5mg SYRINGE) 0.5 mg PRN Q5MIN PRN IV SEE COMMENTS; Start 06/13/19 at 19:00 Sodium Chloride 1,000 ml @ 1,000 mls/hr Q1H PRN IV hypotension; Start 06/14/19 at 08:55; Stop 06/14/19 at 14:54; Status DC Albumin Human 200 ml @ 200 mls/hr 1X PRN PRN IV Hypotension Last administered on 06/14/19at 09:40; Start 06/14/19 at 09:00; Stop 06/14/19 at 14:59; Status DC Sodium Chloride 1,000 ml @ 400 mls/hr Q2H30M PRN IV PATENCY; Start 06/14/19 at 08:55; Stop 06/14/19 at 20:54; Status DC Info (PHARMACY MONITORING -- do not chart) 1 each PRN DAILY PRN MC SEE COMMENTS; Start 06/14/19 at 09:00; Stop 06/14/19 at 09:06; Status DC Info (PHARMACY MONITORING -- do not chart) 1 each PRN DAILY PRN MC SEE COMMENTS; Start 06/14/19 at 09:00; Stop 06/14/19 at 09:06; Status DC Calcium Chloride 2000 mg/Sodium Chloride 120 ml @ 240 mls/hr PRN QID PRN IV for CALCIUM < 5.8 Last administered on 06/15/19at 08:32; Start 06/14/19 at 10:15; Stop 06/15/19 at 09:58; Status DC Magnesium Sulfate 50 ml @ 25 mls/hr PRN DAILY PRN IV for Mag < 1.7 on am labs; Start 06/14/19 at 10:30 Norepinephrine Bitartrate 8 mg/ Dextrose 258 ml @ 20.027 mls/ hr CONT PRN IV PER PROTOCOL Last administered on 06/14/19at 10:31; Start 06/14/19 at 10:30 Succinylcholine Chloride (Anectine) 200 mg STK-MED ONCE .ROUTE ; Start 06/14/19 at 12:22; Stop 06/14/19 at 12:23; Status DC Etomidate (Amidate) 20 mg STK-MED ONCE IV ; Start 06/14/19 at 12:22; Stop 06/14/19 at 12:23; Status DC Fentanyl Citrate 30 ml @ 0 mls/hr CONT PRN IV SEE PROTOCOL Last administered on 06/16/19at 10:15; Start 06/14/19 at 12:45 Chlorhexidine Gluconate (Peridex) 15 ml BID MM Last administered on 06/16/19at 07:39; Start 06/14/19 at 21:00 Midazolam HCl 50 mg/Sodium Chloride 50 ml @ 0 mls/hr CONT PRN IV SEE PROTOCOL Last administered on 06/16/19at 02:32; Start 06/14/19 at 12:45 Midazolam HCl (Versed) 5 mg STK-MED ONCE .ROUTE ; Start 06/14/19 at 12:48; Stop 06/14/19 at 12:48; Status DC Fentanyl Citrate (Fentanyl 2ml Vial) 100 mcg STK-MED ONCE .ROUTE ; Start 06/14/19 at 12:48; Stop 06/14/19 at 12:48; Status DC Midazolam HCl (Versed) 5 mg 1X ONCE IV Last administered on 06/14/19at 12:59; Start 06/14/19 at 13:00; Stop 06/14/19 at 13:01; Status DC Fentanyl Citrate (Fentanyl 2ml Vial) 100 mcg 1X ONCE IM Last administered on 06/14/19at 12:58; Start 06/14/19 at 13:00; Stop 06/14/19 at 13:01; Status DC Succinylcholine Chloride (Anectine) 200 mg 1X ONCE IV Last administered on 06/14/19at 12:59; Start 06/14/19 at 13:00; Stop 06/14/19 at 13:01; Status DC Etomidate (Amidate) 14 mg 1X ONCE IV Last administered on 06/14/19at 12:59; Start 06/14/19 at 13:00; Stop 06/14/19 at 13:01; Status DC Acetaminophen (Tylenol Supp) 650 mg PRN Q6HRS PRN [place] MILD PAIN / TEMP Last administered on 06/16/19at 10:13; Start 06/14/19 at 20:00 Linezolid/Dextrose 300 ml @ 300 mls/hr Q12HR IV Last administered on 06/16/19at 08:37; Start 06/14/19 at 21:00 Insulin Human Lispro (HumaLOG) 0-7 UNITS TIDWMEALS SQ ; Start 06/15/19 at 08:00; Stop 06/15/19 at 00:03; Status DC Dextrose (Dextrose 50%-Water Syringe) 12.5 gm PRN Q15MIN PRN IV SEE COMMENTS; Start 06/14/19 at 23:30 Insulin Human Lispro (HumaLOG) 0-7 UNITS Q4HRS SQ Last administered on 06/16/19at 07:40; Start 06/15/19 at 00:15 Calcium Gluconate 79605 mg/Sodium Chloride 494 ml @ 4.051 mls/ hr CONT PRN IV SYMPTOMATIC HYPOCALCEMIA; Start 06/15/19 at 09:30; Stop 06/15/19 at 09:23; Status DC Calcium Gluconate 5000 mg/Sodium Chloride 260 ml @ 5.543 mls/ hr CONT PRN IV SYMPTOMATIC HYPOCALCEMIA; Start 06/15/19 at 09:30; Stop 06/15/19 at 09:26; Status DC Calcium Gluconate 5000 mg/Sodium Chloride 260 ml @ 5.543 mls/ hr CONT PRN IV SYMPTOMATIC HYPOCALCEMIA; Start 06/15/19 at 09:30; Stop 06/15/19 at 09:29; Status DC Calcium Gluconate 5000 mg/Sodium Chloride 250 ml @ 28.782 mls/ hr CONT PRN IV SYMPTOMATIC HYPOCALCEMIA Last administered on 06/16/19at 08:39; Start 06/15/19 at 09:30 Active Scripts Active Vitals/I & O Vital Sign - Last 24 Hours 06/15/19 06/15/19 06/15/19 06/15/19 11:00 11:36 11:57 12:01 Temp 98.6 98.6 Pulse 92 Resp 18 18 B/P (MAP) 114/67 (83) Pulse Ox 95 O2 Delivery Ventilator Ventilator Mechanical Ventilator 3/1/20 3/1/20 3/1/20 3/1/20 12:06 12:14 13:15 14:17 Temp 99.9 100.6 99.9 100.6 Pulse 94 94 Resp 18 20 19 B/P (MAP) 116/64 (81) 101/96 (98) Pulse Ox 96 95 O2 Delivery Ventilator Ventilator Ventilator Ventilator 06/15/19 06/15/19 06/15/19 06/15/19 15:00 15:02 16:00 16:00 Pulse 92 96 Resp 19 B/P (MAP) 110/60 (77) 99/58 (72) Pulse Ox 94 O2 Delivery Ventilator Ventilator Mechanical Ventilator Ventilator 06/15/19 06/15/19 06/15/19 06/15/19 16:37 17:00 17:00 17:07 Temp 100.6 100.6 Pulse 98 Resp 19 20 B/P (MAP) 121/68 (85) O2 Delivery Ventilator Ventilator Ventilator 06/15/19 06/15/19 06/15/19 06/15/19 18:00 18:11 19:00 20:00 Temp 100.8 100.8 100.8 100.8 Pulse 100 104 106 Resp 12 17 B/P (MAP) 122/68 (86) 111/69 (83) 130/77 (94) Pulse Ox 94 95 95 O2 Delivery Ventilator Ventilator Ventilator Ventilator 06/15/19 06/15/19 06/15/19 06/15/19 20:00 20:07 21:00 21:00 Temp 100.9 100.9 Pulse 108 Resp 17 B/P (MAP) 131/78 (95) Pulse Ox 95 95 95 O2 Delivery Mechanical Ventilator Ventilator Ventilator Ventilator 06/15/19 06/15/19 06/15/19 06/16/19 22:00 23:00 23:15 00:00 Temp 101.1 100.6 100.2 101.1 100.6 100.2 Pulse 107 101 98 Resp 17 17 17 B/P (MAP) 124/80 (95) 119/67 (84) 125/72 (89) Pulse Ox 96 96 96 96 O2 Delivery Ventilator Ventilator Ventilator Ventilator 06/16/19 06/16/19 06/16/19 06/16/19 00:00 01:00 02:00 02:46 Temp 100.2 100.0 100.2 100.0 Pulse 100 102 Resp 16 15 B/P (MAP) 115/67 (83) 137/65 (89) Pulse Ox 96 96 96 O2 Delivery Mechanical Ventilator Ventilator Ventilator Ventilator 06/16/19 06/16/19 06/16/19 06/16/19 03:00 04:00 04:00 04:37 Temp 100.0 100.0 100.0 100.0 Pulse 100 102 Resp 15 19 B/P (MAP) 117/68 (84) 122/75 (91) Pulse Ox 96 96 96 O2 Delivery Ventilator Ventilator Mechanical Ventilator O2 Flow Rate 3.0 06/16/19 06/16/19 06/16/19 06/16/19 05:00 05:35 06:00 07:00 Temp 99.7 99.9 99.0 99.7 99.9 99.0 Pulse 100 101 104 Resp 15 18 16 B/P (MAP) 117/77 (90) 132/71 (91) 140/75 (96) Pulse Ox 97 97 98 97 O2 Delivery Ventilator Ventilator Ventilator Ventilator 06/16/19 06/16/19 06/16/19 06/16/19 07:50 07:53 07:59 09:40 Temp 99.3 99.3 Pulse 104 103 Resp 17 20 B/P (MAP) 140/75 (96) 131/77 (95) Pulse Ox 95 97 96 O2 Delivery Ventilator Ventilator Mechanical Ventilator Ventilator 06/16/19 06/16/19 09:52 10:15 Resp 18 Pulse Ox 95 40 O2 Delivery Ventilator Ventilator Intake and Output 06/15/19 06/15/19 06/16/19 15:00 23:00 07:00 Intake Total 120 ml 408 ml 610 ml Output Total 500 ml 2100 ml 1150 ml Balance -380 ml -1692 ml -540 ml Hemodynamically unstable?: Yes Is patient in severe pain?: Yes Is NPO status required?: Yes JERSON AVILES MD Jun 16, 2019 10:39
[2019-06-16 12:25] LABS: FIO2 ISTAT 20; VEN BASE EXCESS ISTAT 1 mmol/L (0-3); VEN GLUC ISTAT 255 mg/dL (70-99); VEN HCO3 ISTAT 27 mmol/L (24-28); VEN HCT ISTAT 32 % (37-52); VEN HGB ISTAT 10.9 g/dL (14-18); VEN ION CA ISTAT 0.88 mmol/L (1.13-1.32); VEN K ISTAT 4.7 mmol/L (3.5-5.0); VEN NA ISTAT 142 mmol/L (135-145); VEN O2 ISTAT 79 mmHg (20-40); VEN PCO2 ISTAT 53 mmHg (41-51); VEN PH ISTAT 7.31 (7.32-7.42); VEN SO2 ISTAT 94 %; VEN TCO2 ISTAT 29 mmol/L (21-32)
--- NOTE | 2019-06-16 12:47 | PDOC ---
G I PROGRESS NOTE Subjective Sedated on ventilator. Objective OG bilious. Physical Exam Lungs clear anteriorly. RRR Abdomen distended, firm. No bowel sounds. Review of Relevant I have reviewed the following items alexandra (where applicable) has been applied. Labs Laboratory Tests Test 06/14/19 14:00 06/14/19 15:09 06/14/19 17:00 06/14/19 17:10 O2 Saturation 97 % (92-99) Arterial Blood pH 7.36 (7.35-7.45) Arterial Blood pCO2 at Patient Temp 46 mmHg (35-46) Arterial Blood pO2 at Patient Temp 100 mmHg (75-108) Arterial Blood HCO3 25 mmol/L (21-28) Arterial Blood Base Excess 0 mmol/L (-3-3) FiO2 60 Glucose (Fingerstick) 132 mg/dL (70-99) 159 mg/dL (70-99) Calcium Level 6.5 mg/dL (8.5-10.1) Test 06/14/19 23:12 06/15/19 04:30 06/15/19 07:00 06/15/19 07:31 Glucose (Fingerstick) 238 mg/dL (70-99) 226 mg/dL (70-99) 198 mg/dL (70-99) White Blood Count 9.9 x10^3/uL (4.0-11.0) Red Blood Count 3.85 x10^6/uL (4.30-5.70) Hemoglobin 11.5 g/dL (13.0-17.5) Hematocrit 33.5 % (39.0-53.0) Mean Corpuscular Volume 87 fL (79-100) Mean Corpuscular Hemoglobin 30 pg (25-35) Mean Corpuscular Hemoglobin Concent 34 g/dL (31-37) Red Cell Distribution Width 14.3 % (11.5-14.5) Platelet Count 122 x10^3/uL (140-400) Neutrophils (%) (Auto) 79 % (31-73) Lymphocytes (%) (Auto) 10 % (24-48) Monocytes (%) (Auto) 10 % (0-9) Eosinophils (%) (Auto) 1 % (0-3) Basophils (%) (Auto) 0 % (0-3) Neutrophils # (Auto) 7.8 x10^3/uL (1.8-7.7) Lymphocytes # (Auto) 1.0 x10^3/uL (1.0-4.8) Monocytes # (Auto) 1.0 x10^3/uL (0.0-1.1) Eosinophils # (Auto) 0.1 x10^3/uL (0.0-0.7) Basophils # (Auto) 0.0 x10^3/uL (0.0-0.2) Sodium Level 138 mmol/L (136-145) Potassium Level 4.3 mmol/L (3.5-5.1) Chloride Level 103 mmol/L (98-107) Carbon Dioxide Level 26 mmol/L (21-32) Anion Gap 9 (6-14) Blood Urea Nitrogen 62 mg/dL (8-26) Creatinine 3.3 mg/dL (0.7-1.3) Estimated GFR (Cockcroft-Gault) 23.4 BUN/Creatinine Ratio 18 (6-20) Glucose Level 209 mg/dL (70-99) Calcium Level 5.0 mg/dL (8.5-10.1) Phosphorus Level 3.4 mg/dL (2.6-4.7) Total Bilirubin 4.2 mg/dL (0.2-1.0) Aspartate Amino Transf (AST/SGOT) 128 U/L (15-37) Alanine Aminotransferase (ALT/SGPT) 66 U/L (16-63) Alkaline Phosphatase 54 U/L (46-116) Total Protein 5.7 g/dL (6.4-8.2) Albumin 2.6 g/dL (3.4-5.0) Albumin/Globulin Ratio 0.8 (1.0-1.7) Test 06/15/19 07:45 06/15/19 11:36 06/15/19 14:05 06/15/19 17:51 O2 Saturation 95 % (92-99) Arterial Blood pH 7.40 (7.35-7.45) Arterial Blood pCO2 at Patient Temp 38 mmHg (35-46) Arterial Blood pO2 at Patient Temp 81 mmHg (75-108) Arterial Blood HCO3 23 mmol/L (21-28) Arterial Blood Base Excess -2 mmol/L (-3-3) FiO2 40% Glucose (Fingerstick) 226 mg/dL (70-99) 182 mg/dL (70-99) Ionized Calcium 0.69 mmol/L (1.13-1.32) Test 06/15/19 20:02 06/15/19 23:55 06/16/19 00:01 06/16/19 04:22 Glucose (Fingerstick) 171 mg/dL (70-99) 203 mg/dL (70-99) 189 mg/dL (70-99) Ionized Calcium 0.77 mmol/L (1.13-1.32) Test 06/16/19 05:00 06/16/19 07:36 06/16/19 07:50 06/16/19 12:00 White Blood Count 12.6 x10^3/uL (4.0-11.0) Red Blood Count 3.72 x10^6/uL (4.30-5.70) Hemoglobin 11.1 g/dL (13.0-17.5) Hematocrit 32.9 % (39.0-53.0) Mean Corpuscular Volume 89 fL (79-100) Mean Corpuscular Hemoglobin 30 pg (25-35) Mean Corpuscular Hemoglobin Concent 34 g/dL (31-37) Red Cell Distribution Width 14.0 % (11.5-14.5) Platelet Count 156 x10^3/uL (140-400) Neutrophils (%) (Auto) 89 % (31-73) Lymphocytes (%) (Auto) 3 % (24-48) Monocytes (%) (Auto) 8 % (0-9) Eosinophils (%) (Auto) 0 % (0-3) Basophils (%) (Auto) 0 % (0-3) Neutrophils # (Auto) 11.1 x10^3/uL (1.8-7.7) Lymphocytes # (Auto) 0.4 x10^3/uL (1.0-4.8) Monocytes # (Auto) 1.0 x10^3/uL (0.0-1.1) Eosinophils # (Auto) 0.0 x10^3/uL (0.0-0.7) Basophils # (Auto) 0.0 x10^3/uL (0.0-0.2) Sodium Level 144 mmol/L (136-145) Potassium Level 4.6 mmol/L (3.5-5.1) Chloride Level 107 mmol/L (98-107) Carbon Dioxide Level 26 mmol/L (21-32) Anion Gap 11 (6-14) Blood Urea Nitrogen 59 mg/dL (8-26) Creatinine 2.4 mg/dL (0.7-1.3) Estimated GFR (Cockcroft-Gault) 35.0 BUN/Creatinine Ratio 25 (6-20) Glucose Level 209 mg/dL (70-99) Calcium Level 6.6 mg/dL (8.5-10.1) Ionized Calcium 0.83 mmol/L (1.13-1.32) 0.88 mmol/L (1.13-1.32) Phosphorus Level 4.2 mg/dL (2.6-4.7) Magnesium Level 2.7 mg/dL (1.8-2.4) Total Bilirubin 5.5 mg/dL (0.2-1.0) Aspartate Amino Transf (AST/SGOT) 137 U/L (15-37) Alanine Aminotransferase (ALT/SGPT) 66 U/L (16-63) Alkaline Phosphatase 58 U/L (46-116) Total Protein 6.0 g/dL (6.4-8.2) Albumin 2.3 g/dL (3.4-5.0) Albumin/Globulin Ratio 0.6 (1.0-1.7) Lipase 475 U/L (73-393) Glucose (Fingerstick) 210 mg/dL (70-99) O2 Saturation 93 % (92-99) Arterial Blood pH 7.33 (7.35-7.45) Arterial Blood pCO2 at Patient Temp 46 mmHg (35-46) Arterial Blood pO2 at Patient Temp 75 mmHg (75-108) Arterial Blood HCO3 24 mmol/L (21-28) Arterial Blood Base Excess -3 mmol/L (-3-3) FiO2 40 Test 06/16/19 12:01 06/16/19 12:20 Glucose (Fingerstick) 238 mg/dL (70-99) Bedside Hematocrit 32 % (37-52) Bedside Venous pH 7.31 (7.32-7.42) Bedside Venous pCO2 53 mmHg (41-51) Bedside Venous pO2 79 mmHg (20-40) Bedside Venous HCO3 27 mmol/L (24-28) Bedside Venous Blood Total CO2 29 mmol/L (21-32) Bedside Venous Blood O2 Saturation 94 % Bedside Venous Blood Base Excess 1 mmol/L (0-3) POC Venous Hemoglobin (Calc) 10.9 g/dL (14-18) Bedside FiO2 20 Bedside Sodium 142 mmol/L (135-145) Bedside Potassium 4.7 mmol/L (3.5-5.0) Glucose Level 255 mg/dL (70-99) Bedside Ionized Calcium ([place]) 0.88 mmol/L (1.13-1.32) Laboratory Tests Test 06/15/19 14:05 06/15/19 17:51 06/15/19 20:02 06/15/19 23:55 Ionized Calcium 0.69 mmol/L (1.13-1.32) Glucose (Fingerstick) 182 mg/dL (70-99) 171 mg/dL (70-99) 203 mg/dL (70-99) Test 06/16/19 00:01 06/16/19 04:22 06/16/19 05:00 06/16/19 07:36 Ionized Calcium 0.77 mmol/L (1.13-1.32) 0.83 mmol/L (1.13-1.32) Glucose (Fingerstick) 189 mg/dL (70-99) 210 mg/dL (70-99) White Blood Count 12.6 x10^3/uL (4.0-11.0) Red Blood Count 3.72 x10^6/uL (4.30-5.70) Hemoglobin 11.1 g/dL (13.0-17.5) Hematocrit 32.9 % (39.0-53.0) Mean Corpuscular Volume 89 fL (79-100) Mean Corpuscular Hemoglobin 30 pg (25-35) Mean Corpuscular Hemoglobin Concent 34 g/dL (31-37) Red Cell Distribution Width 14.0 % (11.5-14.5) Platelet Count 156 x10^3/uL (140-400) Neutrophils (%) (Auto) 89 % (31-73) Lymphocytes (%) (Auto) 3 % (24-48) Monocytes (%) (Auto) 8 % (0-9) Eosinophils (%) (Auto) 0 % (0-3) Basophils (%) (Auto) 0 % (0-3) Neutrophils # (Auto) 11.1 x10^3/uL (1.8-7.7) Lymphocytes # (Auto) 0.4 x10^3/uL (1.0-4.8) Monocytes # (Auto) 1.0 x10^3/uL (0.0-1.1) Eosinophils # (Auto) 0.0 x10^3/uL (0.0-0.7) Basophils # (Auto) 0.0 x10^3/uL (0.0-0.2) Sodium Level 144 mmol/L (136-145) Potassium Level 4.6 mmol/L (3.5-5.1) Chloride Level 107 mmol/L (98-107) Carbon Dioxide Level 26 mmol/L (21-32) Anion Gap 11 (6-14) Blood Urea Nitrogen 59 mg/dL (8-26) Creatinine 2.4 mg/dL (0.7-1.3) Estimated GFR (Cockcroft-Gault) 35.0 BUN/Creatinine Ratio 25 (6-20) Glucose Level 209 mg/dL (70-99) Calcium Level 6.6 mg/dL (8.5-10.1) Phosphorus Level 4.2 mg/dL (2.6-4.7) Magnesium Level 2.7 mg/dL (1.8-2.4) Total Bilirubin 5.5 mg/dL (0.2-1.0) Aspartate Amino Transf (AST/SGOT) 137 U/L (15-37) Alanine Aminotransferase (ALT/SGPT) 66 U/L (16-63) Alkaline Phosphatase 58 U/L (46-116) Total Protein 6.0 g/dL (6.4-8.2) Albumin 2.3 g/dL (3.4-5.0) Albumin/Globulin Ratio 0.6 (1.0-1.7) Lipase 475 U/L (73-393) Test 06/16/19 07:50 06/16/19 12:00 06/16/19 12:01 06/16/19 12:20 O2 Saturation 93 % (92-99) Arterial Blood pH 7.33 (7.35-7.45) Arterial Blood pCO2 at Patient Temp 46 mmHg (35-46) Arterial Blood pO2 at Patient Temp 75 mmHg (75-108) Arterial Blood HCO3 24 mmol/L (21-28) Arterial Blood Base Excess -3 mmol/L (-3-3) FiO2 40 Ionized Calcium 0.88 mmol/L (1.13-1.32) Glucose (Fingerstick) 238 mg/dL (70-99) Bedside Hematocrit 32 % (37-52) Bedside Venous pH 7.31 (7.32-7.42) Bedside Venous pCO2 53 mmHg (41-51) Bedside Venous pO2 79 mmHg (20-40) Bedside Venous HCO3 27 mmol/L (24-28) Bedside Venous Blood Total CO2 29 mmol/L (21-32) Bedside Venous Blood O2 Saturation 94 % Bedside Venous Blood Base Excess 1 mmol/L (0-3) POC Venous Hemoglobin (Calc) 10.9 g/dL (14-18) Bedside FiO2 20 Bedside Sodium 142 mmol/L (135-145) Bedside Potassium 4.7 mmol/L (3.5-5.0) Glucose Level 255 mg/dL (70-99) Bedside Ionized Calcium ([place]) 0.88 mmol/L (1.13-1.32) Microbiology 06/14/19 Blood Culture - Preliminary, Resulted NO GROWTH AFTER 1 DAY LFT's, lipase improved. Vitals/I & O Vital Sign - Last 24 Hours 06/15/19 06/15/19 06/15/19 06/15/19 13:15 14:17 15:00 15:02 Temp 100.6 100.6 Pulse 94 92 Resp 19 19 B/P (MAP) 101/96 (98) 110/60 (77) Pulse Ox 95 94 O2 Delivery Ventilator Ventilator Ventilator Ventilator 06/15/19 06/15/19 06/15/19 06/15/19 16:00 16:00 16:37 17:00 Pulse 96 98 Resp 19 B/P (MAP) 99/58 (72) 121/68 (85) O2 Delivery Mechanical Ventilator Ventilator Ventilator Ventilator 06/15/19 06/15/19 06/15/19 06/15/19 17:00 17:07 18:00 18:11 Temp 100.6 100.6 Pulse 100 Resp 20 B/P (MAP) 122/68 (86) Pulse Ox 94 O2 Delivery Ventilator Ventilator Ventilator 06/15/19 06/15/19 06/15/19 06/15/19 19:00 20:00 20:00 20:07 Temp 100.8 100.8 100.8 100.8 Pulse 104 106 Resp 12 17 B/P (MAP) 111/69 (83) 130/77 (94) Pulse Ox 95 95 95 O2 Delivery Ventilator Ventilator Mechanical Ventilator Ventilator 06/15/19 06/15/19 06/15/19 06/15/19 21:00 21:00 22:00 23:00 Temp 100.9 101.1 100.6 100.9 101.1 100.6 Pulse 108 107 101 Resp 17 17 17 B/P (MAP) 131/78 (95) 124/80 (95) 119/67 (84) Pulse Ox 95 95 96 96 O2 Delivery Ventilator Ventilator Ventilator Ventilator 06/15/19 06/16/19 06/16/19 06/16/19 23:15 00:00 00:00 01:00 Temp 100.2 100.2 100.2 100.2 Pulse 98 100 Resp 17 16 B/P (MAP) 125/72 (89) 115/67 (83) Pulse Ox 96 96 96 O2 Delivery Ventilator Ventilator Mechanical Ventilator Ventilator 06/16/19 06/16/19 06/16/19 06/16/19 02:00 02:46 03:00 04:00 Temp 100.0 100.0 100.0 100.0 100.0 100.0 Pulse 102 100 102 Resp 15 15 19 B/P (MAP) 137/65 (89) 117/68 (84) 122/75 (91) Pulse Ox 96 96 96 96 O2 Delivery Ventilator Ventilator Ventilator Ventilator 06/16/19 06/16/19 06/16/19 06/16/19 04:00 04:37 05:00 05:35 Temp 99.7 99.7 Pulse 100 Resp 15 B/P (MAP) 117/77 (90) Pulse Ox 96 97 97 O2 Delivery Mechanical Ventilator Ventilator Ventilator O2 Flow Rate 3.0 06/16/19 06/16/19 06/16/19 06/16/19 06:00 07:00 07:50 07:53 Temp 99.9 99.0 99.3 99.9 99.0 99.3 Pulse 101 104 104 Resp 18 16 17 B/P (MAP) 132/71 (91) 140/75 (96) 140/75 (96) Pulse Ox 98 97 95 97 O2 Delivery Ventilator Ventilator Ventilator Ventilator 3/2/20 3/2/20 3/2/20 3/2/20 07:59 09:40 09:52 10:15 Pulse 103 Resp 20 18 B/P (MAP) 131/77 (95) Pulse Ox 96 95 40 O2 Delivery Mechanical Ventilator Ventilator Ventilator Ventilator 06/16/19 06/16/19 06/16/19 06/16/19 10:42 11:54 12:12 12:13 Temp 100.2 100.9 100.2 100.9 Pulse 105 115 Resp 20 16 B/P (MAP) 140/72 (94) 138/76 (96) Pulse Ox 94 96 96 O2 Delivery Ventilator Ventilator Ventilator Mechanical Ventilator Intake and Output 06/15/19 06/15/19 06/16/19 15:00 23:00 07:00 Intake Total 120 ml 408 ml 610 ml Output Total 500 ml 2100 ml 1150 ml Balance -380 ml -1692 ml -540 ml Problem List Problems Medical Problems: (1) Acute pancreatitis Status: Acute (2) Nausea & vomiting Status: Acute Assessment Severe pancreatitis, biliary, ongoing. Status of gland? Plan of Care Note Continue support. Will check CT. Hemodynamically unstable?: Yes Is patient in severe pain?: Yes Is NPO status required?: Yes MARIA L CRUZ MD Jun 16, 2019 12:47
--- NOTE | 2019-06-16 13:01 | NUR ---
SS following up with discharge planning. Pt is currently on the vent. SS will continue to follow for discharge planning.
--- NOTE | 2019-06-16 13:03 | PDOC ---
PULMONARY PROGRESS NOTES Subjective INTUBATED SEC TO ENCEPHALOPATHY AND DECREASE SAT Vitals Vital Signs Date Time Temp Pulse Resp B/P (MAP) Pulse Ox O2 Delivery O2 Flow Rate FiO2 06/16/19 12:13 Mechanical Ventilator 06/16/19 12:12 100.9 115 16 138/76 (96) 96 100.9 06/16/19 04:37 3.0 Lungs: Clear, Crackles Cardiovascular: S1, S2 Abdomen: Other (TENDER AND DISTENDED) Extremities: Other Skin: Warm Labs Laboratory Tests Test 06/14/19 14:00 06/14/19 15:09 06/14/19 17:00 06/14/19 17:10 O2 Saturation 97 % (92-99) Arterial Blood pH 7.36 (7.35-7.45) Arterial Blood pCO2 at Patient Temp 46 mmHg (35-46) Arterial Blood pO2 at Patient Temp 100 mmHg (75-108) Arterial Blood HCO3 25 mmol/L (21-28) Arterial Blood Base Excess 0 mmol/L (-3-3) FiO2 60 Glucose (Fingerstick) 132 mg/dL (70-99) 159 mg/dL (70-99) Calcium Level 6.5 mg/dL (8.5-10.1) Test 06/14/19 23:12 06/15/19 04:30 06/15/19 07:00 06/15/19 07:31 Glucose (Fingerstick) 238 mg/dL (70-99) 226 mg/dL (70-99) 198 mg/dL (70-99) White Blood Count 9.9 x10^3/uL (4.0-11.0) Red Blood Count 3.85 x10^6/uL (4.30-5.70) Hemoglobin 11.5 g/dL (13.0-17.5) Hematocrit 33.5 % (39.0-53.0) Mean Corpuscular Volume 87 fL (79-100) Mean Corpuscular Hemoglobin 30 pg (25-35) Mean Corpuscular Hemoglobin Concent 34 g/dL (31-37) Red Cell Distribution Width 14.3 % (11.5-14.5) Platelet Count 122 x10^3/uL (140-400) Neutrophils (%) (Auto) 79 % (31-73) Lymphocytes (%) (Auto) 10 % (24-48) Monocytes (%) (Auto) 10 % (0-9) Eosinophils (%) (Auto) 1 % (0-3) Basophils (%) (Auto) 0 % (0-3) Neutrophils # (Auto) 7.8 x10^3/uL (1.8-7.7) Lymphocytes # (Auto) 1.0 x10^3/uL (1.0-4.8) Monocytes # (Auto) 1.0 x10^3/uL (0.0-1.1) Eosinophils # (Auto) 0.1 x10^3/uL (0.0-0.7) Basophils # (Auto) 0.0 x10^3/uL (0.0-0.2) Sodium Level 138 mmol/L (136-145) Potassium Level 4.3 mmol/L (3.5-5.1) Chloride Level 103 mmol/L (98-107) Carbon Dioxide Level 26 mmol/L (21-32) Anion Gap 9 (6-14) Blood Urea Nitrogen 62 mg/dL (8-26) Creatinine 3.3 mg/dL (0.7-1.3) Estimated GFR (Cockcroft-Gault) 23.4 BUN/Creatinine Ratio 18 (6-20) Glucose Level 209 mg/dL (70-99) Calcium Level 5.0 mg/dL (8.5-10.1) Phosphorus Level 3.4 mg/dL (2.6-4.7) Total Bilirubin 4.2 mg/dL (0.2-1.0) Aspartate Amino Transf (AST/SGOT) 128 U/L (15-37) Alanine Aminotransferase (ALT/SGPT) 66 U/L (16-63) Alkaline Phosphatase 54 U/L (46-116) Total Protein 5.7 g/dL (6.4-8.2) Albumin 2.6 g/dL (3.4-5.0) Albumin/Globulin Ratio 0.8 (1.0-1.7) Test 06/15/19 07:45 06/15/19 11:36 06/15/19 14:05 06/15/19 17:51 O2 Saturation 95 % (92-99) Arterial Blood pH 7.40 (7.35-7.45) Arterial Blood pCO2 at Patient Temp 38 mmHg (35-46) Arterial Blood pO2 at Patient Temp 81 mmHg (75-108) Arterial Blood HCO3 23 mmol/L (21-28) Arterial Blood Base Excess -2 mmol/L (-3-3) FiO2 40% Glucose (Fingerstick) 226 mg/dL (70-99) 182 mg/dL (70-99) Ionized Calcium 0.69 mmol/L (1.13-1.32) Test 06/15/19 20:02 06/15/19 23:55 06/16/19 00:01 06/16/19 04:22 Glucose (Fingerstick) 171 mg/dL (70-99) 203 mg/dL (70-99) 189 mg/dL (70-99) Ionized Calcium 0.77 mmol/L (1.13-1.32) Test 06/16/19 05:00 06/16/19 07:36 06/16/19 07:50 06/16/19 12:00 White Blood Count 12.6 x10^3/uL (4.0-11.0) Red Blood Count 3.72 x10^6/uL (4.30-5.70) Hemoglobin 11.1 g/dL (13.0-17.5) Hematocrit 32.9 % (39.0-53.0) Mean Corpuscular Volume 89 fL (79-100) Mean Corpuscular Hemoglobin 30 pg (25-35) Mean Corpuscular Hemoglobin Concent 34 g/dL (31-37) Red Cell Distribution Width 14.0 % (11.5-14.5) Platelet Count 156 x10^3/uL (140-400) Neutrophils (%) (Auto) 89 % (31-73) Lymphocytes (%) (Auto) 3 % (24-48) Monocytes (%) (Auto) 8 % (0-9) Eosinophils (%) (Auto) 0 % (0-3) Basophils (%) (Auto) 0 % (0-3) Neutrophils # (Auto) 11.1 x10^3/uL (1.8-7.7) Lymphocytes # (Auto) 0.4 x10^3/uL (1.0-4.8) Monocytes # (Auto) 1.0 x10^3/uL (0.0-1.1) Eosinophils # (Auto) 0.0 x10^3/uL (0.0-0.7) Basophils # (Auto) 0.0 x10^3/uL (0.0-0.2) Sodium Level 144 mmol/L (136-145) Potassium Level 4.6 mmol/L (3.5-5.1) Chloride Level 107 mmol/L (98-107) Carbon Dioxide Level 26 mmol/L (21-32) Anion Gap 11 (6-14) Blood Urea Nitrogen 59 mg/dL (8-26) Creatinine 2.4 mg/dL (0.7-1.3) Estimated GFR (Cockcroft-Gault) 35.0 BUN/Creatinine Ratio 25 (6-20) Glucose Level 209 mg/dL (70-99) Calcium Level 6.6 mg/dL (8.5-10.1) Ionized Calcium 0.83 mmol/L (1.13-1.32) 0.88 mmol/L (1.13-1.32) Phosphorus Level 4.2 mg/dL (2.6-4.7) Magnesium Level 2.7 mg/dL (1.8-2.4) Total Bilirubin 5.5 mg/dL (0.2-1.0) Aspartate Amino Transf (AST/SGOT) 137 U/L (15-37) Alanine Aminotransferase (ALT/SGPT) 66 U/L (16-63) Alkaline Phosphatase 58 U/L (46-116) Total Protein 6.0 g/dL (6.4-8.2) Albumin 2.3 g/dL (3.4-5.0) Albumin/Globulin Ratio 0.6 (1.0-1.7) Lipase 475 U/L (73-393) Glucose (Fingerstick) 210 mg/dL (70-99) O2 Saturation 93 % (92-99) Arterial Blood pH 7.33 (7.35-7.45) Arterial Blood pCO2 at Patient Temp 46 mmHg (35-46) Arterial Blood pO2 at Patient Temp 75 mmHg (75-108) Arterial Blood HCO3 24 mmol/L (21-28) Arterial Blood Base Excess -3 mmol/L (-3-3) FiO2 40 Test 06/16/19 12:01 06/16/19 12:20 Glucose (Fingerstick) 238 mg/dL (70-99) Bedside Hematocrit 32 % (37-52) Bedside Venous pH 7.31 (7.32-7.42) Bedside Venous pCO2 53 mmHg (41-51) Bedside Venous pO2 79 mmHg (20-40) Bedside Venous HCO3 27 mmol/L (24-28) Bedside Venous Blood Total CO2 29 mmol/L (21-32) Bedside Venous Blood O2 Saturation 94 % Bedside Venous Blood Base Excess 1 mmol/L (0-3) POC Venous Hemoglobin (Calc) 10.9 g/dL (14-18) Bedside FiO2 20 Bedside Sodium 142 mmol/L (135-145) Bedside Potassium 4.7 mmol/L (3.5-5.0) Glucose Level 255 mg/dL (70-99) Bedside Ionized Calcium ([place]) 0.88 mmol/L (1.13-1.32) Laboratory Tests Test 06/15/19 14:05 06/15/19 17:51 06/15/19 20:02 06/15/19 23:55 Ionized Calcium 0.69 mmol/L (1.13-1.32) Glucose (Fingerstick) 182 mg/dL (70-99) 171 mg/dL (70-99) 203 mg/dL (70-99) Test 06/16/19 00:01 06/16/19 04:22 06/16/19 05:00 06/16/19 07:36 Ionized Calcium 0.77 mmol/L (1.13-1.32) 0.83 mmol/L (1.13-1.32) Glucose (Fingerstick) 189 mg/dL (70-99) 210 mg/dL (70-99) White Blood Count 12.6 x10^3/uL (4.0-11.0) Red Blood Count 3.72 x10^6/uL (4.30-5.70) Hemoglobin 11.1 g/dL (13.0-17.5) Hematocrit 32.9 % (39.0-53.0) Mean Corpuscular Volume 89 fL (79-100) Mean Corpuscular Hemoglobin 30 pg (25-35) Mean Corpuscular Hemoglobin Concent 34 g/dL (31-37) Red Cell Distribution Width 14.0 % (11.5-14.5) Platelet Count 156 x10^3/uL (140-400) Neutrophils (%) (Auto) 89 % (31-73) Lymphocytes (%) (Auto) 3 % (24-48) Monocytes (%) (Auto) 8 % (0-9) Eosinophils (%) (Auto) 0 % (0-3) Basophils (%) (Auto) 0 % (0-3) Neutrophils # (Auto) 11.1 x10^3/uL (1.8-7.7) Lymphocytes # (Auto) 0.4 x10^3/uL (1.0-4.8) Monocytes # (Auto) 1.0 x10^3/uL (0.0-1.1) Eosinophils # (Auto) 0.0 x10^3/uL (0.0-0.7) Basophils # (Auto) 0.0 x10^3/uL (0.0-0.2) Sodium Level 144 mmol/L (136-145) Potassium Level 4.6 mmol/L (3.5-5.1) Chloride Level 107 mmol/L (98-107) Carbon Dioxide Level 26 mmol/L (21-32) Anion Gap 11 (6-14) Blood Urea Nitrogen 59 mg/dL (8-26) Creatinine 2.4 mg/dL (0.7-1.3) Estimated GFR (Cockcroft-Gault) 35.0 BUN/Creatinine Ratio 25 (6-20) Glucose Level 209 mg/dL (70-99) Calcium Level 6.6 mg/dL (8.5-10.1) Phosphorus Level 4.2 mg/dL (2.6-4.7) Magnesium Level 2.7 mg/dL (1.8-2.4) Total Bilirubin 5.5 mg/dL (0.2-1.0) Aspartate Amino Transf (AST/SGOT) 137 U/L (15-37) Alanine Aminotransferase (ALT/SGPT) 66 U/L (16-63) Alkaline Phosphatase 58 U/L (46-116) Total Protein 6.0 g/dL (6.4-8.2) Albumin 2.3 g/dL (3.4-5.0) Albumin/Globulin Ratio 0.6 (1.0-1.7) Lipase 475 U/L (73-393) Test 06/16/19 07:50 06/16/19 12:00 06/16/19 12:01 06/16/19 12:20 O2 Saturation 93 % (92-99) Arterial Blood pH 7.33 (7.35-7.45) Arterial Blood pCO2 at Patient Temp 46 mmHg (35-46) Arterial Blood pO2 at Patient Temp 75 mmHg (75-108) Arterial Blood HCO3 24 mmol/L (21-28) Arterial Blood Base Excess -3 mmol/L (-3-3) FiO2 40 Ionized Calcium 0.88 mmol/L (1.13-1.32) Glucose (Fingerstick) 238 mg/dL (70-99) Bedside Hematocrit 32 % (37-52) Bedside Venous pH 7.31 (7.32-7.42) Bedside Venous pCO2 53 mmHg (41-51) Bedside Venous pO2 79 mmHg (20-40) Bedside Venous HCO3 27 mmol/L (24-28) Bedside Venous Blood Total CO2 29 mmol/L (21-32) Bedside Venous Blood O2 Saturation 94 % Bedside Venous Blood Base Excess 1 mmol/L (0-3) POC Venous Hemoglobin (Calc) 10.9 g/dL (14-18) Bedside FiO2 20 Bedside Sodium 142 mmol/L (135-145) Bedside Potassium 4.7 mmol/L (3.5-5.0) Glucose Level 255 mg/dL (70-99) Bedside Ionized Calcium ([place]) 0.88 mmol/L (1.13-1.32) Medications Active Scripts Medications Dose Route/Sig Max Daily Dose Days Date Category Impression . IMPRESSION: 1. Acute hypoxemic respiratory failure, multifactorial. 2. Acute gallstone pancreatitis. 3. Acute kidney failure. 4. Metabolic toxic encephalopathy. 5. Hyperkalemia. 6. Metabolic acidosis. 7. Hypocalcemia. 8. POSSIBLE ABD COMPARTMENT SYNDROME PRESSURE YESTERDAY LESS 20 9. HYPOCALCEMIA 10. HEP B S POSITIVE ID Plan Plan of Care Continue empiric merrem, renal dosing Zyvox added Renal ,GI and General Surgery following. Plans are for randi this admission BC neg to date Maintain aspiration precaution. Plan . SPOKE WITH AT [facility] INFORMED HER THAT THIS MAY TAKE 2-3 WEEKS FOR IMPROVEMENT ABG NOTED AC MODE SUPPORT WITH ANTI BX IV FLUID REPLACE CA HS OVERALL PROGNOSIS IS GUARDED AT THIS TIME CCT 35 D/W RN DESTINI MATOS MD Jun 16, 2019 13:03
[2019-06-17] VITALS (24 sets, daily range): BP systolic 112–160; BP diastolic 60–77
[2019-06-17] MEDS: INSULIN LISPRO 300 UNITS/3 ML VIAL. SQ SCH ×6 (00:18→20:33)
[2019-06-17] MEDS: AA 4.25 %/CALCIUM/LYTES/D5W 1,000 ML IV SCH ×2 (02:35→15:15)
[2019-06-17] MEDS: MIDAZOLAM HCL 50 MG in IV NORMAL SALINE 50ML 50 ML IV PRN ×3 (02:57→23:00)
[2019-06-17] MEDS: CALCIUM GLUCONATE IV PRN ×3 (03:10→20:59)
[2019-06-17] MEDS: NORMAL SALINE IV PRN ×3 (03:10→20:59)
--- NOTE | 2019-06-17 04:31 | RAD ---
CT ABDOMEN PELVIS WO CONTRAST History: Severe pancreatitis. Technique: Noncontrast examination of the abdomen and pelvis. Coronal and sagittal reconstructions were performed. Exposure: One or more of the following individualized dose reduction techniques were utilized for this examination: 1. Automated exposure control 2. Adjustment of the mA and/or kV according to patient size 3. Use of iterative reconstruction technique. Comparison: June 11, 2019 Findings: Lower chest: Moderate left and small right pleural effusions with adjacent atelectasis. Abdomen and pelvis: Severe findings of pancreatitis. Diffuse hypoattenuation of the pancreas, concerning for necrosis. Evaluation degraded without IV contrast. Fluid collection along the inferior aspect of the stomach measures 9.6 x 4.0 cm. Loculated fluid collection along the anterior aspect of the pancreas measures 3.0 x 2.6 cm. Severe inflammatory changes extending inferiorly. Small perihepatic free fluid. Bilateral perinephric inflammatory changes. Cholelithiasis. The liver, spleen, adrenal glands and kidneys are unremarkable noncontrast appearance. No hydronephrosis. Regions of colonic wall thickening, likely reactive. Normal appendix. Enteric tube within the stomach. No evidence of small bowel obstruction. Duodenal proximal jejunal wall thickening, likely reactive. Multiple enlarged mesenteric lymph nodes.. Catheter within the urinary bladder. Mild body wall edema. Bones: No pathologic osseous lesions. Impression: 1. Increased severe pancreatitis with extensive inflammatory changes and hypoattenuation of the pancreas, concerning for necrosis although evaluation degraded without IV contrast. 2. New fluid collection along the inferior aspect of the stomach and anterior aspect of the pancreas. 3. Increased multifocal colonic and small bowel wall thickening, likely reactive. 4. New small perihepatic free fluid. 5. Cholelithiasis. 6. Mesenteric lymphadenopathy, likely reactive. 7. Moderate left and small right pleural effusion with adjacent atelectasis. Electronically signed by: Khurram Faust DO (06/17/2019 4:28 AM) [id number]
[2019-06-17 04:57] LABS: BASO % 0 % (0-3); EOS % 0 % (0-3); HEMATOCRIT 30.8 % (39.0-53.0); HEMOGLOBIN 10.3 g/dL (13.0-17.5); LYMPH # 0.4 x10^3/uL (1.0-4.8); LYMPH % 4 % (24-48); MEAN CORPUSCULAR HEMOGLOBIN 30 pg (25-35); MEAN CORPUSCULAR HGB CONC 33 g/dL (31-37); MEAN CORPUSCULAR VOLUME 90 fL (79-100); MONO % 8 % (0-9); NEUT % 88 % (31-73); PLATELET COUNT 177 x10^3/uL (140-400); RED BLOOD COUNT 3.43 x10^6/uL (4.30-5.70); RED CELL DISTRIBUTION WIDTH 14.6 % (11.5-14.5); WHITE BLOOD COUNT 12.4 x10^3/uL (4.0-11.0)
[2019-06-17 05:21] LABS: CALCIUM 7.7 mg/dL (8.5-10.1); CREATININE 1.9 mg/dL (0.7-1.3); GFR 45.8; PHOSPHORUS 3.9 mg/dL (2.6-4.7); POTASSIUM 5.3 mmol/L (3.5-5.1)
[2019-06-17] MEDS: PANTOPRAZOLE IV PUSH 40 MG VIAL. IVP SCH ×2 (05:55→20:48)
[2019-06-17] MEDS: DEXMEDETOMIDINE 400 MCG in IV NORMAL SALINE 100ML 96 ML IV PRN ×2 (05:56→14:49)
--- NOTE | 2019-06-17 07:17 | PDOC ---
Infectious Disease Note Subjective Subjective Now intubated, FiO2 40% Sedated BC repeated and Zyvox added ROS ROS unable to obtain Vital Sign Vital Signs Vital Signs Date Time Temp Pulse Resp B/P (MAP) Pulse Ox O2 Delivery O2 Flow Rate FiO2 06/17/19 06:00 99.7 99 15 127/63 (84) 98 Ventilator 99.7 Physical Exam PHYSICAL EXAM GENERAL: Sedated, orally intubated on vent, mitts HEENT: Pupils equal, small. OGT/ETT in place NECK: Supple no JVD LUNGS: Diminished aeration bases HEART: S1, S2, regular, no murmurs. ABDOMEN: Distended, tight, no guarding to palpation, BS hypoactive : [place] EXTREMITIES: trace edema, no cyanosis. SCDs bilaterally SKIN: Warm, dry. 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 [employer]: Sedated RIJ/HD catheter (06/13) clean Labs Lab Laboratory Tests Test 06/16/19 07:36 06/16/19 07:50 06/16/19 12:00 06/16/19 12:01 Glucose (Fingerstick) 210 mg/dL (70-99) 238 mg/dL (70-99) O2 Saturation 93 % (92-99) Arterial Blood pH 7.33 (7.35-7.45) Arterial Blood pCO2 at Patient Temp 46 mmHg (35-46) Arterial Blood pO2 at Patient Temp 75 mmHg (75-108) Arterial Blood HCO3 24 mmol/L (21-28) Arterial Blood Base Excess -3 mmol/L (-3-3) FiO2 40 Ionized Calcium 0.88 mmol/L (1.13-1.32) Test 06/16/19 12:20 06/16/19 16:07 06/16/19 18:00 06/16/19 19:48 Bedside Hematocrit 32 % (37-52) Bedside Venous pH 7.31 (7.32-7.42) Bedside Venous pCO2 53 mmHg (41-51) Bedside Venous pO2 79 mmHg (20-40) Bedside Venous HCO3 27 mmol/L (24-28) Bedside Venous Blood Total CO2 29 mmol/L (21-32) Bedside Venous Blood O2 Saturation 94 % Bedside Venous Blood Base Excess 1 mmol/L (0-3) POC Venous Hemoglobin (Calc) 10.9 g/dL (14-18) Bedside FiO2 20 Bedside Sodium 142 mmol/L (135-145) Bedside Potassium 4.7 mmol/L (3.5-5.0) Glucose Level 255 mg/dL (70-99) Bedside Ionized Calcium ([place]asta) 0.88 mmol/L (1.13-1.32) Glucose (Fingerstick) 185 mg/dL (70-99) 204 mg/dL (70-99) Ionized Calcium 0.92 mmol/L (1.13-1.32) Test 06/17/19 00:01 06/17/19 00:14 06/17/19 04:44 06/17/19 04:45 Ionized Calcium 0.97 mmol/L (1.13-1.32) 0.97 mmol/L (1.13-1.32) Glucose (Fingerstick) 219 mg/dL (70-99) 248 mg/dL (70-99) White Blood Count 12.4 x10^3/uL (4.0-11.0) Red Blood Count 3.43 x10^6/uL (4.30-5.70) Hemoglobin 10.3 g/dL (13.0-17.5) Hematocrit 30.8 % (39.0-53.0) Mean Corpuscular Volume 90 fL (79-100) Mean Corpuscular Hemoglobin 30 pg (25-35) Mean Corpuscular Hemoglobin Concent 33 g/dL (31-37) Red Cell Distribution Width 14.6 % (11.5-14.5) Platelet Count 177 x10^3/uL (140-400) Neutrophils (%) (Auto) 88 % (31-73) Lymphocytes (%) (Auto) 4 % (24-48) Monocytes (%) (Auto) 8 % (0-9) Eosinophils (%) (Auto) 0 % (0-3) Basophils (%) (Auto) 0 % (0-3) Neutrophils # (Auto) 11.0 x10^3/uL (1.8-7.7) Lymphocytes # (Auto) 0.4 x10^3/uL (1.0-4.8) Monocytes # (Auto) 1.0 x10^3/uL (0.0-1.1) Eosinophils # (Auto) 0.0 x10^3/uL (0.0-0.7) Basophils # (Auto) 0.0 x10^3/uL (0.0-0.2) Sodium Level 149 mmol/L (136-145) Potassium Level 5.3 mmol/L (3.5-5.1) Chloride Level 111 mmol/L (98-107) Carbon Dioxide Level 28 mmol/L (21-32) Anion Gap 10 (6-14) Blood Urea Nitrogen 45 mg/dL (8-26) Creatinine 1.9 mg/dL (0.7-1.3) Estimated GFR (Cockcroft-Gault) 45.8 Glucose Level 257 mg/dL (70-99) Calcium Level 7.7 mg/dL (8.5-10.1) Phosphorus Level 3.9 mg/dL (2.6-4.7) Magnesium Level 3.2 mg/dL (1.8-2.4) Albumin 2.0 g/dL (3.4-5.0) Micro CT 06/15 Lower chest: Moderate left and small right pleural effusions with adjacent atelectasis. Abdomen and pelvis: Severe findings of pancreatitis. Diffuse hypoattenuation of the pancreas, concerning for necrosis. Evaluation degraded without IV contrast. Fluid collection along the inferior aspect of the stomach measures 9.6 x 4.0 cm. Loculated fluid collection along the anterior aspect of the pancreas measures 3.0 x 2.6 cm. Severe inflammatory changes extending inferiorly. Small perihepatic free fluid. Bilateral perinephric inflammatory changes. Cholelithiasis. The liver, spleen, adrenal glands and kidneys are unremarkable noncontrast appearance. No hydronephrosis. Regions of colonic wall thickening, likely reactive. Normal appendix. Enteric tube within the stomach. No evidence of small bowel obstruction. Duodenal proximal jejunal wall thickening, likely reactive. Multiple enlarged mesenteric lymph nodes.. Catheter within the urinary bladder. Mild body wall edema. Impression: 1. Increased severe pancreatitis with extensive inflammatory changes and hypoattenuation of the pancreas, concerning for necrosis although evaluation degraded without IV contrast. 2. New fluid collection along the inferior aspect of the stomach and anterior aspect of the pancreas. 3. Increased multifocal colonic and small bowel wall thickening, likely reactive. 4. New small perihepatic free fluid. 5. Cholelithiasis. 6. Mesenteric lymphadenopathy, likely reactive. 7. Moderate left and small right pleural effusion with adjacent atelectasis. Microbiology 06/14/19 Blood Culture - Preliminary, Resulted NO GROWTH AFTER 1 DAY Objective Assessment Fever - better - core temps Gallbladder stone pancreatitis - lipase 475 06/15. CT 06/15 - Fluid collection along the inferior aspect of the stomach measures 9.6 x 4.0 cm. Loculated fluid collection along the anterior aspect of the pancreas measures 3.0 x 2.6 cm . Sepsis from GI Acute Resp failure - intubated Lactic acidosis. Leukocytosis - ? reactive - stable Acute kidney injury requiring dialysis, HDC (06/13) Metabolic acidosis. Hypocalcemia Basilar atelectasis. Plan Plan of Care Continue empiric merrem, renal dosing Zyvox added Await GI/Surgical eval of repeat CT from 06/15 ? if fluid amenable to drain or ? need for surgery - d/w nursing to contact surgery this am after report CBC in am Renal, GI and General Surgery/Pulm following. Plans are for randi this admission BC neg to date Maintain aspiration precaution. D/w nursing Critically ill D/w 06/15 LE CROWLEY MD Jun 17, 2019 07:17
--- NOTE | 2019-06-17 09:20 | PDOC ---
SUBJECTIVE ROS Intubated, sedated OBJECTIVE Vital Signs Vital Signs Date Time Temp Pulse Resp B/P (MAP) Pulse Ox O2 Delivery O2 Flow Rate FiO2 06/17/19 08:00 98 Ventilator 06/17/19 08:00 100.0 98 15 137/72 (93) 100.0 I & 0 Intake and Output 06/17/19 07:00 Intake Total 2062 ml Output Total 3945 ml Balance -1883 ml IV Total 2062 ml Output Urine Total 3545 ml Gastric Drainage Total 400 ml PHYSICAL EXAM Physical Exam GENERAL: Sedated, orally intubated on vent HEENT: OGT/ETT in place NECK: Supple LUNGS: Diminished aeration bases HEART: S1, S2, regular, no murmurs. ABDOMEN: Distended, tight, no guarding to palpation,BS hypoactive : [place] EXTREMITIES: trace edema, no cyanosis SKIN: Warm, dry. 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 Currently on IV calcium PTH and Phos wnl , Check Vit D (if not already done) Ac. Pancreatitis - Gallbladder stone pancreatitis, NGT in place. Defer to GI to initiate enteral feeds Sepsis from GI Acute Resp failure - intubated Metabolic acidosis- resolved COMMENT/RELEVANT DATA Meds Current Medications Medications (Trade) Dose Ordered Sig/Jesse Start Time Stop Time Status Last Admin Dose Admin Acetaminophen (Tylenol Supp) 650 mg PRN Q6HRS PRN 06/14/19 20:00 06/16/19 10:13 650 MG Albumin Human 200 ml @ 200 mls/hr 1X PRN PRN 06/14/19 09:00 06/14/19 14:59 DC 06/14/19 09:40 200 MLS/HR Amino Acids/ Electrolytes/ Dextrose 1,000 ml @ 80 mls/hr [id number] 06/12/19 10:15 Amino Acids/ Glycerin/ Electrolytes 1,000 ml @ 80 mls/hr [id number] 06/12/19 10:00 UNV Atropine Sulfate (ATROPINE 0.5mg SYRINGE) 0.5 mg PRN Q5MIN PRN 06/13/19 19:00 Calcium Chloride 2000 mg/Sodium Chloride 120 ml @ 240 mls/hr PRN QID PRN 06/14/19 10:15 06/15/19 09:58 DC 06/15/19 08:32 240 MLS/HR Calcium Gluconate 1000 mg/Sodium Chloride 110 ml @ 220 mls/hr 1X ONCE 06/12/19 19:15 06/12/19 19:44 DC 06/12/19 20:35 220 MLS/HR Calcium Gluconate 5000 mg/Sodium Chloride 250 ml @ 28.782 mls/ hr CONT PRN 06/15/19 09:30 06/17/19 03:10 28.782 MLS/HR Calcium Gluconate 86771 mg/Sodium Chloride 494 ml @ 4.051 mls/ hr CONT PRN 06/15/19 09:30 06/15/19 09:23 DC Chlorhexidine Gluconate (Peridex) 15 ml BID 06/14/19 21:00 06/16/19 21:04 15 ML Dexmedetomidine HCl 400 mcg/ Sodium Chloride 100 ml @ 0 mls/hr CONT PRN 06/13/19 19:00 06/17/19 05:56 10.5 MLS/HR Dextrose (Dextrose 50%-Water Syringe) 12.5 gm PRN Q15MIN PRN 06/14/19 23:30 Etomidate (Amidate) 14 mg 1X ONCE 06/14/19 13:00 06/14/19 13:01 DC 06/14/19 12:59 14 MG Fentanyl Citrate (Fentanyl 2ml Vial) 100 mcg 1X ONCE 06/14/19 13:00 06/14/19 13:01 DC 06/14/19 12:58 100 MCG Furosemide (Lasix) 40 mg 1X ONCE 06/12/19 16:00 06/12/19 16:01 DC 06/12/19 16:13 40 MG Hydralazine HCl (Apresoline Inj) 10 mg PRN Q6HRS PRN 06/11/19 18:15 06/11/19 18:22 10 MG Hydromorphone HCl (Dilaudid) 1 mg PRN Q2HRS PRN 06/11/19 12:00 06/14/19 13:00 2 MG Info (CONTRAST GIVEN -- Rx MONITORING) 1 each PRN DAILY PRN 06/11/19 04:45 06/13/19 04:44 DC Info (PHARMACY MONITORING -- do not chart) 1 each PRN DAILY PRN 06/14/19 09:00 06/14/19 09:06 DC Insulin Human Lispro (HumaLOG) 0-7 UNITS Q4HRS 06/15/19 00:15 06/17/19 04:47 2 UNITS Insulin Human Regular (HumuLIN R VIAL) 10 unit 1X ONCE 06/12/19 16:00 06/12/19 16:01 DC 06/12/19 16:14 10 UNIT Insulin Human Regular 100 unit/ Sodium Chloride 101 ml @ 0 mls/hr CONT PRN 06/13/19 14:15 06/13/19 15:03 7.07 MLS/HR Iohexol (Omnipaque 350 Mg/ml) 100 ml 1X ONCE 06/11/19 04:45 06/11/19 04:46 DC 06/11/19 05:01 100 ML Lidocaine HCl (Buffered Lidocaine 1%) 6 ml 1X ONCE 06/13/19 09:30 06/13/19 09:31 DC 06/13/19 09:23 6 ML Linezolid/Dextrose 300 ml @ 300 mls/hr Q12HR 06/14/19 21:00 06/16/19 21:04 300 MLS/HR Lorazepam (Ativan Inj) 1 mg PRN Q6HRS PRN 06/11/19 18:15 06/14/19 13:00 2 MG Magnesium Sulfate 50 ml @ 25 mls/hr PRN DAILY PRN 06/14/19 10:30 Meropenem 500 mg/ Sodium Chloride 50 ml @ 100 mls/hr Q12HR 06/12/19 21:00 06/16/19 21:04 100 MLS/HR Midazolam HCl (Versed) 5 mg 1X ONCE 06/14/19 13:00 06/14/19 13:01 DC 06/14/19 12:59 5 MG Midazolam HCl 50 mg/Sodium Chloride 50 ml @ 0 mls/hr CONT PRN 06/14/19 12:45 06/17/19 02:57 7 MLS/HR Morphine Sulfate (Morphine Sulfate) 4 mg PRN Q2HR PRN 06/11/19 05:45 06/11/19 11:54 DC 06/11/19 07:37 4 MG Norepinephrine Bitartrate 8 mg/ Dextrose 258 ml @ 20.027 mls/ hr CONT PRN 06/14/19 10:30 06/14/19 10:31 20.027 MLS/HR Nystatin (Nystop) 1 devorah PRN QID PRN 06/11/19 23:15 06/11/19 23:19 1 DEVORAH Ondansetron HCl (Zofran) 4 mg PRN Q8HRS PRN 06/11/19 05:45 06/12/19 05:44 DC 06/12/19 03:29 4 MG Pantoprazole Sodium (PROTONIX VIAL for IV PUSH) 40 mg [id number] 06/13/19 21:00 06/17/19 05:55 40 MG Piperacillin Sod/ Tazobactam Sod (Zosyn Per Pharmacy) 1 each PRN DAILY PRN 06/12/19 13:15 06/12/19 19:16 DC Piperacillin Sod/ Tazobactam Sod 2.25 gm/Sodium Chloride 50 ml @ 100 mls/hr Q6HRS 06/12/19 13:30 06/12/19 19:15 DC 06/12/19 13:48 100 MLS/HR Potassium Chloride/Water 100 ml @ 100 mls/hr Q1H 06/11/19 06:00 06/11/19 07:59 DC 06/11/19 08:41 100 MLS/HR Prochlorperazine Edisylate (Compazine) 10 mg PRN Q8HRS PRN 06/11/19 12:00 06/12/19 14:59 10 MG Sodium Bicarbonate 50 meq/Sodium Chloride 1,050 ml @ 150 mls/hr Q7H 06/12/19 11:00 06/13/19 14:48 DC 06/13/19 04:16 150 MLS/HR Sodium Bicarbonate (Sodium Bicarb Adult 8.4% Syr) 50 meq 1X ONCE 06/12/19 16:00 06/12/19 16:01 DC 06/12/19 16:12 50 MEQ Sodium Chloride 1,000 ml @ 400 mls/hr Q2H30M PRN 06/14/19 08:55 06/14/19 20:54 DC Succinylcholine Chloride (Anectine) 200 mg 1X ONCE 06/14/19 13:00 06/14/19 13:01 DC 06/14/19 12:59 200 MG Lab Laboratory Tests Test 06/16/19 12:00 06/16/19 12:01 06/16/19 12:20 06/16/19 16:07 Ionized Calcium 0.88 mmol/L (1.13-1.32) Glucose (Fingerstick) 238 mg/dL (70-99) 185 mg/dL (70-99) Bedside Hematocrit 32 % (37-52) Bedside Venous pH 7.31 (7.32-7.42) Bedside Venous pCO2 53 mmHg (41-51) Bedside Venous pO2 79 mmHg (20-40) Bedside Venous HCO3 27 mmol/L (24-28) Bedside Venous Blood Total CO2 29 mmol/L (21-32) Bedside Venous Blood O2 Saturation 94 % Bedside Venous Blood Base Excess 1 mmol/L (0-3) POC Venous Hemoglobin (Calc) 10.9 g/dL (14-18) Bedside FiO2 20 Bedside Sodium 142 mmol/L (135-145) Bedside Potassium 4.7 mmol/L (3.5-5.0) Glucose Level 255 mg/dL (70-99) Bedside Ionized Calcium ([place]) 0.88 mmol/L (1.13-1.32) Test 06/16/19 18:00 06/16/19 19:48 06/17/19 00:01 06/17/19 00:14 Ionized Calcium 0.92 mmol/L (1.13-1.32) 0.97 mmol/L (1.13-1.32) Glucose (Fingerstick) 204 mg/dL (70-99) 219 mg/dL (70-99) Test 06/17/19 04:44 06/17/19 04:45 06/17/19 08:49 Glucose (Fingerstick) 248 mg/dL (70-99) 224 mg/dL (70-99) White Blood Count 12.4 x10^3/uL (4.0-11.0) Red Blood Count 3.43 x10^6/uL (4.30-5.70) Hemoglobin 10.3 g/dL (13.0-17.5) Hematocrit 30.8 % (39.0-53.0) Mean Corpuscular Volume 90 fL (79-100) Mean Corpuscular Hemoglobin 30 pg (25-35) Mean Corpuscular Hemoglobin Concent 33 g/dL (31-37) Red Cell Distribution Width 14.6 % (11.5-14.5) Platelet Count 177 x10^3/uL (140-400) Neutrophils (%) (Auto) 88 % (31-73) Lymphocytes (%) (Auto) 4 % (24-48) Monocytes (%) (Auto) 8 % (0-9) Eosinophils (%) (Auto) 0 % (0-3) Basophils (%) (Auto) 0 % (0-3) Neutrophils # (Auto) 11.0 x10^3/uL (1.8-7.7) Lymphocytes # (Auto) 0.4 x10^3/uL (1.0-4.8) Monocytes # (Auto) 1.0 x10^3/uL (0.0-1.1) Eosinophils # (Auto) 0.0 x10^3/uL (0.0-0.7) Basophils # (Auto) 0.0 x10^3/uL (0.0-0.2) Sodium Level 149 mmol/L (136-145) Potassium Level 5.3 mmol/L (3.5-5.1) Chloride Level 111 mmol/L (98-107) Carbon Dioxide Level 28 mmol/L (21-32) Anion Gap 10 (6-14) Blood Urea Nitrogen 45 mg/dL (8-26) Creatinine 1.9 mg/dL (0.7-1.3) Estimated GFR (Cockcroft-Gault) 45.8 Glucose Level 257 mg/dL (70-99) Calcium Level 7.7 mg/dL (8.5-10.1) Ionized Calcium 0.97 mmol/L (1.13-1.32) Phosphorus Level 3.9 mg/dL (2.6-4.7) Magnesium Level 3.2 mg/dL (1.8-2.4) Albumin 2.0 g/dL (3.4-5.0) Results All relevant outside records, renal labs, imaging studies, telemetry/EKG's were reviewed. RANDALL GALVIN MD Jun 17, 2019 09:20
[2019-06-17] MEDS: MEROPENEM 500 MG in IV NORMAL SALINE 50ML 50 ML IV SCH ×2 (09:21→20:59)
--- NOTE | 2019-06-17 10:21 | PDOC ---
PROGRESS NOTES History of Present Illness History of Present Illness ASSESSMENT AND PLAN: Acute hypoxemic respiratory failure, Severe pancreatitis. , GALLSTONE pancreatitis hypoattenuation of the pancreas, concerning for necrosis although evaluation degraded without IV contrast. 06/16 Severe biliary pancreatitis. Resp failure Renal failure MORBID OBESITY ACUTE HYPOXIC RESP FAILURE// ARDS HYPERKALEMIA hypocalcemia per nephrology replacement TRANSAMINITIS LACTIC ACIDOSIS SEPSIS VOLUME OVERLOAD HYPERGLYCEMIA, UNCONTROLLED HYPOCALCEMIA, REPLACE PER RENAL admitted consult GI, IV fluids, p.r.n. antiemetics, home medications, deep venous thrombosis prophylaxis. Full code. nephrology consult gen surgery consult GI CONSULT O2 SUPPORT lactic acid with reflex iv zosyn per pharmacy ID CONSULT BLOOD CULT BICARB DRIP temp dialysis catheter PULM CONSULT INSULIN DRIP PRN HOLD SURGERY, HIGH RISK 06/16 sedated on vent D/W RN // family in room PROGNOSIS: Guarded. 32 MIN CC TIME Vitals Vitals Vital Signs Date Time Temp Pulse Resp B/P (MAP) Pulse Ox O2 Delivery O2 Flow Rate FiO2 06/17/19 09:19 98 06/17/19 08:00 Ventilator 06/17/19 08:00 100.0 98 15 137/72 (93) 100.0 Physical Exam Physical Exam GENERAL: Sedated, orally intubated on vent, mitts HEENT: Pupils equal, small. OGT/ETT in place NECK: Supple no JVD LUNGS: Diminished aeration bases HEART: S1, S2, regular, no murmurs. ABDOMEN: Distended, tight, no guarding to palpation, BS hypoactive : [place] EXTREMITIES: trace edema, no cyanosis. SCDs bilaterally SKIN: Warm, dry. 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 STABBER: Sedated RIJ/HD catheter (06/13) clean General: No acute distress Heart: Regular rate, Normal S1 Lungs: Clear, Crackles Abdomen: Other (distended ) Extremities: No clubbing, No cyanosis Skin: No breakdown Labs LABS History: Severe pancreatitis. Technique: Noncontrast examination of the abdomen and pelvis. Coronal and sagittal reconstructions were performed. Exposure: One or more of the following individualized dose reduction techniques were utilized for this examination: 1. Automated exposure control 2. Adjustment of the mA and/or kV according to patient size 3. Use of iterative reconstruction technique. Comparison: June 11, 2019 Findings: Lower chest: Moderate left and small right pleural effusions with adjacent atelectasis. Abdomen and pelvis: Severe findings of pancreatitis. Diffuse hypoattenuation of the pancreas, concerning for necrosis. Evaluation degraded without IV contrast. Fluid collection along the inferior aspect of the stomach measures 9.6 x 4.0 cm. Loculated fluid collection along the anterior aspect of the pancreas measures 3.0 x 2.6 cm. Severe inflammatory changes extending inferiorly. Small perihepatic free fluid. Bilateral perinephric inflammatory changes. Cholelithiasis. The liver, spleen, adrenal glands and kidneys are unremarkable noncontrast appearance. No hydronephrosis. Regions of colonic wall thickening, likely reactive. Normal appendix. Enteric tube within the stomach. No evidence of small bowel obstruction. Duodenal proximal jejunal wall thickening, likely reactive. Multiple enlarged mesenteric lymph nodes.. Catheter within the urinary bladder. Mild body wall edema. Bones: No pathologic osseous lesions. Impression: 1. Increased severe pancreatitis with extensive inflammatory changes and hypoattenuation of the pancreas, concerning for necrosis although evaluation degraded without IV contrast. 2. New fluid collection along the inferior aspect of the stomach and anterior aspect of the pancreas. 3. Increased multifocal colonic and small bowel wall thickening, likely reactive. 4. New small perihepatic free fluid. 5. Cholelithiasis. 6. Mesenteric lymphadenopathy, likely reactive. 7. Moderate left and small right pleural effusion with adjacent atelectasis. Electronically signed by: Khurram Luna DO (06/17/2019 4:28 AM) [id number] DICTATED and SIGNED BY: KHURRAM LUNA DO Laboratory Tests Test 06/16/19 12:00 06/16/19 12:01 06/16/19 12:20 06/16/19 16:07 Ionized Calcium 0.88 mmol/L (1.13-1.32) Glucose (Fingerstick) 238 mg/dL (70-99) 185 mg/dL (70-99) Bedside Hematocrit 32 % (37-52) Bedside Venous pH 7.31 (7.32-7.42) Bedside Venous pCO2 53 mmHg (41-51) Bedside Venous pO2 79 mmHg (20-40) Bedside Venous HCO3 27 mmol/L (24-28) Bedside Venous Blood Total CO2 29 mmol/L (21-32) Bedside Venous Blood O2 Saturation 94 % Bedside Venous Blood Base Excess 1 mmol/L (0-3) POC Venous Hemoglobin (Calc) 10.9 g/dL (14-18) Bedside FiO2 20 Bedside Sodium 142 mmol/L (135-145) Bedside Potassium 4.7 mmol/L (3.5-5.0) Glucose Level 255 mg/dL (70-99) Bedside Ionized Calcium ([place]) 0.88 mmol/L (1.13-1.32) Test 06/16/19 18:00 06/16/19 19:48 06/17/19 00:01 06/17/19 00:14 Ionized Calcium 0.92 mmol/L (1.13-1.32) 0.97 mmol/L (1.13-1.32) Glucose (Fingerstick) 204 mg/dL (70-99) 219 mg/dL (70-99) Test 06/17/19 04:44 06/17/19 04:45 06/17/19 08:49 Glucose (Fingerstick) 248 mg/dL (70-99) 224 mg/dL (70-99) White Blood Count 12.4 x10^3/uL (4.0-11.0) Red Blood Count 3.43 x10^6/uL (4.30-5.70) Hemoglobin 10.3 g/dL (13.0-17.5) Hematocrit 30.8 % (39.0-53.0) Mean Corpuscular Volume 90 fL (79-100) Mean Corpuscular Hemoglobin 30 pg (25-35) Mean Corpuscular Hemoglobin Concent 33 g/dL (31-37) Red Cell Distribution Width 14.6 % (11.5-14.5) Platelet Count 177 x10^3/uL (140-400) Neutrophils (%) (Auto) 88 % (31-73) Lymphocytes (%) (Auto) 4 % (24-48) Monocytes (%) (Auto) 8 % (0-9) Eosinophils (%) (Auto) 0 % (0-3) Basophils (%) (Auto) 0 % (0-3) Neutrophils # (Auto) 11.0 x10^3/uL (1.8-7.7) Lymphocytes # (Auto) 0.4 x10^3/uL (1.0-4.8) Monocytes # (Auto) 1.0 x10^3/uL (0.0-1.1) Eosinophils # (Auto) 0.0 x10^3/uL (0.0-0.7) Basophils # (Auto) 0.0 x10^3/uL (0.0-0.2) Sodium Level 149 mmol/L (136-145) Potassium Level 5.3 mmol/L (3.5-5.1) Chloride Level 111 mmol/L (98-107) Carbon Dioxide Level 28 mmol/L (21-32) Anion Gap 10 (6-14) Blood Urea Nitrogen 45 mg/dL (8-26) Creatinine 1.9 mg/dL (0.7-1.3) Estimated GFR (Cockcroft-Gault) 45.8 Glucose Level 257 mg/dL (70-99) Calcium Level 7.7 mg/dL (8.5-10.1) Ionized Calcium 0.97 mmol/L (1.13-1.32) Phosphorus Level 3.9 mg/dL (2.6-4.7) Magnesium Level 3.2 mg/dL (1.8-2.4) Albumin 2.0 g/dL (3.4-5.0) Assessment and Plan Assessmemt and Plan Problems Medical Problems: (1) Acute pancreatitis Status: Acute (2) Nausea & vomiting Status: Acute Comment Review of Relevant I have reviewed the following items alexandra (where applicable) has been applied. Labs Laboratory Tests Test 06/15/19 11:36 06/15/19 14:05 06/15/19 17:51 06/15/19 20:02 Glucose (Fingerstick) 226 mg/dL (70-99) 182 mg/dL (70-99) 171 mg/dL (70-99) Ionized Calcium 0.69 mmol/L (1.13-1.32) Test 06/15/19 23:55 06/16/19 00:01 06/16/19 04:22 06/16/19 05:00 Glucose (Fingerstick) 203 mg/dL (70-99) 189 mg/dL (70-99) Ionized Calcium 0.77 mmol/L (1.13-1.32) 0.83 mmol/L (1.13-1.32) White Blood Count 12.6 x10^3/uL (4.0-11.0) Red Blood Count 3.72 x10^6/uL (4.30-5.70) Hemoglobin 11.1 g/dL (13.0-17.5) Hematocrit 32.9 % (39.0-53.0) Mean Corpuscular Volume 89 fL (79-100) Mean Corpuscular Hemoglobin 30 pg (25-35) Mean Corpuscular Hemoglobin Concent 34 g/dL (31-37) Red Cell Distribution Width 14.0 % (11.5-14.5) Platelet Count 156 x10^3/uL (140-400) Neutrophils (%) (Auto) 89 % (31-73) Lymphocytes (%) (Auto) 3 % (24-48) Monocytes (%) (Auto) 8 % (0-9) Eosinophils (%) (Auto) 0 % (0-3) Basophils (%) (Auto) 0 % (0-3) Neutrophils # (Auto) 11.1 x10^3/uL (1.8-7.7) Lymphocytes # (Auto) 0.4 x10^3/uL (1.0-4.8) Monocytes # (Auto) 1.0 x10^3/uL (0.0-1.1) Eosinophils # (Auto) 0.0 x10^3/uL (0.0-0.7) Basophils # (Auto) 0.0 x10^3/uL (0.0-0.2) Sodium Level 144 mmol/L (136-145) Potassium Level 4.6 mmol/L (3.5-5.1) Chloride Level 107 mmol/L (98-107) Carbon Dioxide Level 26 mmol/L (21-32) Anion Gap 11 (6-14) Blood Urea Nitrogen 59 mg/dL (8-26) Creatinine 2.4 mg/dL (0.7-1.3) Estimated GFR (Cockcroft-Gault) 35.0 BUN/Creatinine Ratio 25 (6-20) Glucose Level 209 mg/dL (70-99) Calcium Level 6.6 mg/dL (8.5-10.1) Phosphorus Level 4.2 mg/dL (2.6-4.7) Magnesium Level 2.7 mg/dL (1.8-2.4) Total Bilirubin 5.5 mg/dL (0.2-1.0) Aspartate Amino Transf (AST/SGOT) 137 U/L (15-37) Alanine Aminotransferase (ALT/SGPT) 66 U/L (16-63) Alkaline Phosphatase 58 U/L (46-116) Total Protein 6.0 g/dL (6.4-8.2) Albumin 2.3 g/dL (3.4-5.0) Albumin/Globulin Ratio 0.6 (1.0-1.7) Lipase 475 U/L (73-393) Test 06/16/19 07:36 06/16/19 07:50 06/16/19 12:00 06/16/19 12:01 Glucose (Fingerstick) 210 mg/dL (70-99) 238 mg/dL (70-99) O2 Saturation 93 % (92-99) Arterial Blood pH 7.33 (7.35-7.45) Arterial Blood pCO2 at Patient Temp 46 mmHg (35-46) Arterial Blood pO2 at Patient Temp 75 mmHg (75-108) Arterial Blood HCO3 24 mmol/L (21-28) Arterial Blood Base Excess -3 mmol/L (-3-3) FiO2 40 Ionized Calcium 0.88 mmol/L (1.13-1.32) Test 06/16/19 12:20 06/16/19 16:07 06/16/19 18:00 06/16/19 19:48 Bedside Hematocrit 32 % (37-52) Bedside Venous pH 7.31 (7.32-7.42) Bedside Venous pCO2 53 mmHg (41-51) Bedside Venous pO2 79 mmHg (20-40) Bedside Venous HCO3 27 mmol/L (24-28) Bedside Venous Blood Total CO2 29 mmol/L (21-32) Bedside Venous Blood O2 Saturation 94 % Bedside Venous Blood Base Excess 1 mmol/L (0-3) POC Venous Hemoglobin (Calc) 10.9 g/dL (14-18) Bedside FiO2 20 Bedside Sodium 142 mmol/L (135-145) Bedside Potassium 4.7 mmol/L (3.5-5.0) Glucose Level 255 mg/dL (70-99) Bedside Ionized Calcium ([place]) 0.88 mmol/L (1.13-1.32) Glucose (Fingerstick) 185 mg/dL (70-99) 204 mg/dL (70-99) Ionized Calcium 0.92 mmol/L (1.13-1.32) Test 06/17/19 00:01 06/17/19 00:14 06/17/19 04:44 06/17/19 04:45 Ionized Calcium 0.97 mmol/L (1.13-1.32) 0.97 mmol/L (1.13-1.32) Glucose (Fingerstick) 219 mg/dL (70-99) 248 mg/dL (70-99) White Blood Count 12.4 x10^3/uL (4.0-11.0) Red Blood Count 3.43 x10^6/uL (4.30-5.70) Hemoglobin 10.3 g/dL (13.0-17.5) Hematocrit 30.8 % (39.0-53.0) Mean Corpuscular Volume 90 fL (79-100) Mean Corpuscular Hemoglobin 30 pg (25-35) Mean Corpuscular Hemoglobin Concent 33 g/dL (31-37) Red Cell Distribution Width 14.6 % (11.5-14.5) Platelet Count 177 x10^3/uL (140-400) Neutrophils (%) (Auto) 88 % (31-73) Lymphocytes (%) (Auto) 4 % (24-48) Monocytes (%) (Auto) 8 % (0-9) Eosinophils (%) (Auto) 0 % (0-3) Basophils (%) (Auto) 0 % (0-3) Neutrophils # (Auto) 11.0 x10^3/uL (1.8-7.7) Lymphocytes # (Auto) 0.4 x10^3/uL (1.0-4.8) Monocytes # (Auto) 1.0 x10^3/uL (0.0-1.1) Eosinophils # (Auto) 0.0 x10^3/uL (0.0-0.7) Basophils # (Auto) 0.0 x10^3/uL (0.0-0.2) Sodium Level 149 mmol/L (136-145) Potassium Level 5.3 mmol/L (3.5-5.1) Chloride Level 111 mmol/L (98-107) Carbon Dioxide Level 28 mmol/L (21-32) Anion Gap 10 (6-14) Blood Urea Nitrogen 45 mg/dL (8-26) Creatinine 1.9 mg/dL (0.7-1.3) Estimated GFR (Cockcroft-Gault) 45.8 Glucose Level 257 mg/dL (70-99) Calcium Level 7.7 mg/dL (8.5-10.1) Phosphorus Level 3.9 mg/dL (2.6-4.7) Magnesium Level 3.2 mg/dL (1.8-2.4) Albumin 2.0 g/dL (3.4-5.0) Test 06/17/19 08:49 Glucose (Fingerstick) 224 mg/dL (70-99) Laboratory Tests Test 06/16/19 12:00 06/16/19 12:01 06/16/19 12:20 06/16/19 16:07 Ionized Calcium 0.88 mmol/L (1.13-1.32) Glucose (Fingerstick) 238 mg/dL (70-99) 185 mg/dL (70-99) Bedside Hematocrit 32 % (37-52) Bedside Venous pH 7.31 (7.32-7.42) Bedside Venous pCO2 53 mmHg (41-51) Bedside Venous pO2 79 mmHg (20-40) Bedside Venous HCO3 27 mmol/L (24-28) Bedside Venous Blood Total CO2 29 mmol/L (21-32) Bedside Venous Blood O2 Saturation 94 % Bedside Venous Blood Base Excess 1 mmol/L (0-3) POC Venous Hemoglobin (Calc) 10.9 g/dL (14-18) Bedside FiO2 20 Bedside Sodium 142 mmol/L (135-145) Bedside Potassium 4.7 mmol/L (3.5-5.0) Glucose Level 255 mg/dL (70-99) Bedside Ionized Calcium ([place]) 0.88 mmol/L (1.13-1.32) Test 06/16/19 18:00 06/16/19 19:48 06/17/19 00:01 06/17/19 00:14 Ionized Calcium 0.92 mmol/L (1.13-1.32) 0.97 mmol/L (1.13-1.32) Glucose (Fingerstick) 204 mg/dL (70-99) 219 mg/dL (70-99) Test 06/17/19 04:44 06/17/19 04:45 06/17/19 08:49 Glucose (Fingerstick) 248 mg/dL (70-99) 224 mg/dL (70-99) White Blood Count 12.4 x10^3/uL (4.0-11.0) Red Blood Count 3.43 x10^6/uL (4.30-5.70) Hemoglobin 10.3 g/dL (13.0-17.5) Hematocrit 30.8 % (39.0-53.0) Mean Corpuscular Volume 90 fL (79-100) Mean Corpuscular Hemoglobin 30 pg (25-35) Mean Corpuscular Hemoglobin Concent 33 g/dL (31-37) Red Cell Distribution Width 14.6 % (11.5-14.5) Platelet Count 177 x10^3/uL (140-400) Neutrophils (%) (Auto) 88 % (31-73) Lymphocytes (%) (Auto) 4 % (24-48) Monocytes (%) (Auto) 8 % (0-9) Eosinophils (%) (Auto) 0 % (0-3) Basophils (%) (Auto) 0 % (0-3) Neutrophils # (Auto) 11.0 x10^3/uL (1.8-7.7) Lymphocytes # (Auto) 0.4 x10^3/uL (1.0-4.8) Monocytes # (Auto) 1.0 x10^3/uL (0.0-1.1) Eosinophils # (Auto) 0.0 x10^3/uL (0.0-0.7) Basophils # (Auto) 0.0 x10^3/uL (0.0-0.2) Sodium Level 149 mmol/L (136-145) Potassium Level 5.3 mmol/L (3.5-5.1) Chloride Level 111 mmol/L (98-107) Carbon Dioxide Level 28 mmol/L (21-32) Anion Gap 10 (6-14) Blood Urea Nitrogen 45 mg/dL (8-26) Creatinine 1.9 mg/dL (0.7-1.3) Estimated GFR (Cockcroft-Gault) 45.8 Glucose Level 257 mg/dL (70-99) Calcium Level 7.7 mg/dL (8.5-10.1) Ionized Calcium 0.97 mmol/L (1.13-1.32) Phosphorus Level 3.9 mg/dL (2.6-4.7) Magnesium Level 3.2 mg/dL (1.8-2.4) Albumin 2.0 g/dL (3.4-5.0) Microbiology 06/14/19 Blood Culture - Preliminary, Resulted NO GROWTH AFTER 2 DAYS Medications Current Medications Morphine Sulfate (Morphine Sulfate) 4 mg PRN Q15MIN PRN IV/SQ PAIN GREATER THAN 3/10 Last administered on 06/11/19at 04:58; Start 06/11/19 at 04:30; Stop 06/11/19 at 16:47; Status DC Sodium Chloride 1,000 ml @ 1,000 mls/hr Q1H IV Last administered on 06/11/19at 04:34; Start 06/11/19 at 04:30; Stop 06/11/19 at 05:29; Status DC Ondansetron HCl (Zofran) 4 mg 1X ONCE IV Last administered on 06/11/19at 04:33; Start 06/11/19 at 04:30; Stop 06/11/19 at 04:33; Status DC Iohexol (Omnipaque 350 Mg/ml) 100 ml 1X ONCE IV Last administered on 06/11/19at 05:01; Start 06/11/19 at 04:45; Stop 06/11/19 at 04:46; Status DC Info (CONTRAST GIVEN -- Rx MONITORING) 1 each PRN DAILY PRN MC SEE COMMENTS; Start 06/11/19 at 04:45; Stop 06/13/19 at 04:44; Status DC Fentanyl Citrate (Fentanyl 2ml Vial) 100 mcg STK-MED ONCE .ROUTE ; Start 06/11/19 at 04:42; Stop 06/11/19 at 04:42; Status DC Fentanyl Citrate (Fentanyl 2ml Vial) 50 mcg 1X ONCE IVP Last administered on 06/11/19at 04:45; Start 06/11/19 at 05:00; Stop 06/11/19 at 05:01; Status DC Ondansetron HCl (Zofran) 4 mg PRN Q8HRS PRN IV NAUSEA/VOMITING Last administered on 06/12/19at 03:29; Start 06/11/19 at 05:45; Stop 06/12/19 at 05:44; Status DC Morphine Sulfate (Morphine Sulfate) 4 mg PRN Q2HR PRN IV PAIN Last administered on 06/11/19at 07:37; Start 06/11/19 at 05:45; Stop 06/11/19 at 11:54; Status DC Sodium Chloride 1,000 ml @ 150 mls/hr Q6H40M IV Last administered on 06/12/19at 03:28; Start 06/11/19 at 05:45; Stop 06/12/19 at 11:01; Status DC Hydromorphone HCl (Dilaudid) 0.5 mg PRN Q3HRS PRN IV PAIN Last administered on 06/11/19at 08:38; Start 06/11/19 at 05:45; Stop 06/11/19 at 09:12; Status DC Potassium Chloride/Water 100 ml @ 100 mls/hr Q1H IV Last administered on 06/11/19at 08:41; Start 06/11/19 at 06:00; Stop 06/11/19 at 07:59; Status DC Hydromorphone HCl (Dilaudid) 1 mg PRN Q3HRS PRN IV PAIN Last administered on 06/11/19at 09:29; Start 06/11/19 at 09:15; Stop 06/11/19 at 11:54; Status DC Prochlorperazine Edisylate (Compazine) 10 mg PRN Q8HRS PRN IV NAUSEA/VOMITING Last administered on 06/12/19at 14:59; Start 06/11/19 at 12:00 Hydromorphone HCl (Dilaudid) 1 mg PRN Q2HRS PRN IV PAIN Last administered on 06/14/19at 13:00; Start 06/11/19 at 12:00 Pantoprazole Sodium (PROTONIX VIAL for IV PUSH) 40 mg DAILYAC IVP Last administered on 06/12/19at 08:29; Start 06/11/19 at 15:00; Stop 06/12/19 at 16:23; Status DC Lorazepam (Ativan Inj) 1 mg PRN Q6HRS PRN IVP ANXIETY / AGITATION Last administered on 06/14/19at 13:00; Start 06/11/19 at 18:15 Hydralazine HCl (Apresoline Inj) 10 mg PRN Q6HRS PRN IVP ELEVATED BP, SEE COMMENTS Last administered on 06/11/19at 18:22; Start 06/11/19 at 18:15 Nystatin (Nystop) 1 devorah PRN QID PRN TP FUNGAL RASH Last administered on 06/11/19at 23:19; Start 06/11/19 at 23:15 Sodium Chloride 1,000 ml @ 1,000 mls/hr 1X ONCE IV Last administered on 06/12/19at 05:27; Start 06/12/19 at 06:00; Stop 06/12/19 at 06:59; Status DC Sodium Chloride 1,000 ml @ 1,000 mls/hr 1X ONCE IV Last administered on 06/12/19at 05:25; Start 06/12/19 at 05:00; Stop 06/12/19 at 05:59; Status DC Sodium Chloride 1,000 ml @ 200 mls/hr Q5H IV Last administered on 06/12/19at 06:36; Start 06/12/19 at 07:00; Stop 06/12/19 at 11:01; Status DC Sodium Bicarbonate 50 meq/Sodium Chloride 1,050 ml @ 150 mls/hr Q7H IV Last administered on 06/13/19at 04:16; Start 06/12/19 at 11:00; Stop 06/13/19 at 14:48; Status DC Amino Acids/ Glycerin/ Electrolytes 1,000 ml @ 80 mls/hr [id number] IV ; Start 06/12/19 at 10:00; Status UNV Amino Acids/ Electrolytes/ Dextrose 1,000 ml @ 80 mls/hr [id number] IV ; Start 06/12/19 at 10:15 Piperacillin Sod/ Tazobactam Sod (Zosyn Per Pharmacy) 1 each PRN DAILY PRN MC SEE COMMENTS; Start 06/12/19 at 13:15; Stop 06/12/19 at 19:16; Status DC Piperacillin Sod/ Tazobactam Sod 2.25 gm/Sodium Chloride 50 ml @ 100 mls/hr Q6HRS IV Last administered on 06/12/19at 13:48; Start 06/12/19 at 13:30; Stop 06/12/19 at 19:15; Status DC Sodium Bicarbonate (Sodium Bicarb Adult 8.4% Syr) 50 meq 1X ONCE IV Last administered on 06/12/19at 16:12; Start 06/12/19 at 16:00; Stop 06/12/19 at 16:01; Status DC Calcium Gluconate 1000 mg/Sodium Chloride 110 ml @ 220 mls/hr 1X ONCE IV Last administered on 06/12/19at 16:13; Start 06/12/19 at 16:00; Stop 06/12/19 at 16:29; Status DC Dextrose (Dextrose 50%-Water Syringe) 25 gm 1X ONCE IV Last administered on 06/12/19at 16:13; Start 06/12/19 at 16:00; Stop 06/12/19 at 16:01; Status DC Insulin Human Regular (HumuLIN R VIAL) 10 unit 1X ONCE IV Last administered on 06/12/19at 16:14; Start 06/12/19 at 16:00; Stop 06/12/19 at 16:01; Status DC Furosemide (Lasix) 40 mg 1X ONCE IVP Last administered on 06/12/19at 16:13; Start 06/12/19 at 16:00; Stop 06/12/19 at 16:01; Status DC Pantoprazole Sodium (PROTONIX VIAL for IV PUSH) 40 mg [id number] IVP Last administered on 06/13/19at 06:21; Start 06/12/19 at 18:00; Stop 06/13/19 at 18:49; Status DC Meropenem 500 mg/ Sodium Chloride 50 ml @ 100 mls/hr Q12HR IV Last administered on 06/17/19at 09:21; Start 06/12/19 at 21:00 Calcium Gluconate 1000 mg/Sodium Chloride 110 ml @ 220 mls/hr 1X ONCE IV Last administered on 06/12/19at 20:35; Start 06/12/19 at 19:15; Stop 06/12/19 at 19:4 4; Status DC Lidocaine HCl (Buffered Lidocaine 1%) 3 ml STK-MED ONCE .ROUTE ; Start 06/13/19 at 08:47; Stop 06/13/19 at 08:47; Status DC Lidocaine HCl (Buffered Lidocaine 1%) 6 ml 1X ONCE INJ Last administered on 06/13/19at 09:23; Start 06/13/19 at 09:30; Stop 06/13/19 at 09:31; Status DC Insulin Human Lispro (HumaLOG) 0-7 UNITS TIDWMEALS SQ Last administered on 06/13/19at 12:14; Start 06/13/19 at 12:00; Stop 06/14/19 at 23:29; Status DC Dextrose (Dextrose 50%-Water Syringe) 12.5 gm PRN Q15MIN PRN IV SEE COMMENTS; Start 06/13/19 at 11:15; Stop 06/14/19 at 23:29; Status DC Insulin Human Regular 100 unit/ Sodium Chloride 101 ml @ 0 mls/hr CONT PRN IV SEE I/O RECORD Last administered on 06/13/19at 15:03; Start 06/13/19 at 14:15 Sodium Chloride 1,000 ml @ 1,000 mls/hr Q1H PRN IV hypotension; Start 06/13/19 at 14:00; Stop 06/13/19 at 19:59; Status DC Sodium Chloride 1,000 ml @ 400 mls/hr Q2H30M PRN IV PATENCY; Start 06/13/19 at 14:00; Stop 06/14/19 at 01:59; Status DC Info (PHARMACY MONITORING -- do not chart) 1 each PRN DAILY PRN MC SEE COMMENTS; Start 06/13/19 at 14:45; Stop 06/13/19 at 14:51; Status DC Info (PHARMACY MONITORING -- do not chart) 1 each PRN DAILY PRN MC SEE COMMENTS; Start 06/13/19 at 14:45 Pantoprazole Sodium (PROTONIX VIAL for IV PUSH) 40 mg [id number] IVP Last administered on 06/17/19at 05:55; Start 06/13/19 at 21:00 Dexmedetomidine HCl 400 mcg/ Sodium Chloride 100 ml @ 0 mls/hr CONT PRN IV PER PROTOCOL Last administered on 06/17/19at 05:56; Start 06/13/19 at 19:00 Sodium Chloride 500 ml @ 500 mls/hr 1X PRN PRN IV SEE COMMENTS; Start 06/13/19 at 19:00 Atropine Sulfate (ATROPINE 0.5mg SYRINGE) 0.5 mg PRN Q5MIN PRN IV SEE COMMENTS; Start 06/13/19 at 19:00 Sodium Chloride 1,000 ml @ 1,000 mls/hr Q1H PRN IV hypotension; Start 06/14/19 at 08:55; Stop 06/14/19 at 14:54; Status DC Albumin Human 200 ml @ 200 mls/hr 1X PRN PRN IV Hypotension Last administered on 06/14/19at 09:40; Start 06/14/19 at 09:00; Stop 06/14/19 at 14:59; Status DC Sodium Chloride 1,000 ml @ 400 mls/hr Q2H30M PRN IV PATENCY; Start 06/14/19 at 08:55; Stop 06/14/19 at 20:54; Status DC Info (PHARMACY MONITORING -- do not chart) 1 each PRN DAILY PRN MC SEE COMMENTS; Start 06/14/19 at 09:00; Stop 06/14/19 at 09:06; Status DC Info (PHARMACY MONITORING -- do not chart) 1 each PRN DAILY PRN MC SEE COMMENTS; Start 06/14/19 at 09:00; Stop 06/14/19 at 09:06; Status DC Calcium Chloride 2000 mg/Sodium Chloride 120 ml @ 240 mls/hr PRN QID PRN IV for CALCIUM < 5.8 Last administered on 06/15/19at 08:32; Start 06/14/19 at 10:15; Stop 06/15/19 at 09:58; Status DC Magnesium Sulfate 50 ml @ 25 mls/hr PRN DAILY PRN IV for Mag < 1.7 on am labs; Start 06/14/19 at 10:30 Norepinephrine Bitartrate 8 mg/ Dextrose 258 ml @ 20.027 mls/ hr CONT PRN IV PER PROTOCOL Last administered on 06/14/19at 10:31; Start 06/14/19 at 10:30 Succinylcholine Chloride (Anectine) 200 mg STK-MED ONCE .ROUTE ; Start 06/14/19 at 12:22; Stop 06/14/19 at 12:23; Status DC Etomidate (Amidate) 20 mg STK-MED ONCE IV ; Start 06/14/19 at 12:22; Stop 06/14/19 at 12:23; Status DC Fentanyl Citrate 30 ml @ 0 mls/hr CONT PRN IV SEE PROTOCOL Last administered on 06/17/19at 09:19; Start 06/14/19 at 12:45 Chlorhexidine Gluconate (Peridex) 15 ml BID MM Last administered on 06/16/19at 21:04; Start 06/14/19 at 21:00 Midazolam HCl 50 mg/Sodium Chloride 50 ml @ 0 mls/hr CONT PRN IV SEE PROTOCOL Last administered on 06/17/19at 02:57; Start 06/14/19 at 12:45 Midazolam HCl (Versed) 5 mg STK-MED ONCE .ROUTE ; Start 06/14/19 at 12:48; Stop 06/14/19 at 12:48; Status DC Fentanyl Citrate (Fentanyl 2ml Vial) 100 mcg STK-MED ONCE .ROUTE ; Start 06/14/19 at 12:48; Stop 06/14/19 at 12:48; Status DC Midazolam HCl (Versed) 5 mg 1X ONCE IV Last administered on 06/14/19at 12:59; Start 06/14/19 at 13:00; Stop 06/14/19 at 13:01; Status DC Fentanyl Citrate (Fentanyl 2ml Vial) 100 mcg 1X ONCE IM Last administered on 06/14/19at 12:58; Start 06/14/19 at 13:00; Stop 06/14/19 at 13:01; Status DC Succinylcholine Chloride (Anectine) 200 mg 1X ONCE IV Last administered on 06/14/19at 12:59; Start 06/14/19 at 13:00; Stop 06/14/19 at 13:01; Status DC Etomidate (Amidate) 14 mg 1X ONCE IV Last administered on 06/14/19at 12:59; Start 06/14/19 at 13:00; Stop 06/14/19 at 13:01; Status DC Acetaminophen (Tylenol Supp) 650 mg PRN Q6HRS PRN WI MILD PAIN / TEMP Last administered on 06/16/19at 10:13; Start 06/14/19 at 20:00 Linezolid/Dextrose 300 ml @ 300 mls/hr Q12HR IV Last administered on 06/17/19at 09:20; Start 06/14/19 at 21:00 Insulin Human Lispro (HumaLOG) 0-7 UNITS TIDWMEALS SQ ; Start 06/15/19 at 08:00; Stop 06/15/19 at 00:03; Status DC Dextrose (Dextrose 50%-Water Syringe) 12.5 gm PRN Q15MIN PRN IV SEE COMMENTS; Start 06/14/19 at 23:30 Insulin Human Lispro (HumaLOG) 0-7 UNITS Q4HRS SQ Last administered on 06/17/19at 09:20; Start 06/15/19 at 00:15 Calcium Gluconate 82631 mg/Sodium Chloride 494 ml @ 4.051 mls/ hr CONT PRN IV SYMPTOMATIC HYPOCALCEMIA; Start 06/15/19 at 09:30; Stop 06/15/19 at 09:23; Status DC Calcium Gluconate 5000 mg/Sodium Chloride 260 ml @ 5.543 mls/ hr CONT PRN IV SYMPTOMATIC HYPOCALCEMIA; Start 06/15/19 at 09:30; Stop 06/15/19 at 09:26; Status DC Calcium Gluconate 5000 mg/Sodium Chloride 260 ml @ 5.543 mls/ hr CONT PRN IV SYMPTOMATIC HYPOCALCEMIA; Start 06/15/19 at 09:30; Stop 06/15/19 at 09:29; Status DC Calcium Gluconate 5000 mg/Sodium Chloride 250 ml @ 28.782 mls/ hr CONT PRN IV SYMPTOMATIC HYPOCALCEMIA Last administered on 06/17/19at 03:10; Start 06/15/19 at 09:30 Active Scripts Active Vitals/I & O Vital Sign - Last 24 Hours 06/16/19 06/16/19 06/16/19 06/16/19 10:42 11:54 12:12 12:13 Temp 100.2 100.9 100.2 100.9 Pulse 105 115 Resp 20 16 B/P (MAP) 140/72 (94) 138/76 (96) Pulse Ox 94 96 96 O2 Delivery Ventilator Ventilator Ventilator Mechanical Ventilator 06/16/19 06/16/19 06/16/19 06/16/19 14:00 14:53 15:55 16:04 Pulse 113 Resp 20 15 B/P (MAP) 129/75 (93) Pulse Ox 96 94 95 O2 Delivery Ventilator Ventilator Ventilator Mechanical Ventilator 06/16/19 06/16/19 06/16/19 06/16/19 16:08 18:00 18:10 19:00 Temp 100.3 100.6 100.6 100.3 100.6 100.6 Pulse 109 106 105 Resp 15 17 16 B/P (MAP) 130/74 (92) 134/76 (95) 140/70 (93) Pulse Ox 96 96 97 94 O2 Delivery Ventilator Ventilator Ventilator Ventilator 06/16/19 06/16/19 06/16/19 06/16/19 20:00 20:00 20:00 20:59 Temp 100.8 100.8 Pulse 106 Resp 17 B/P (MAP) 137/74 (95) Pulse Ox 96 95 95 O2 Delivery Mechanical Ventilator Ventilator Ventilator Ventilator 06/16/19 06/16/19 06/16/193/20 21:00 22:00 23:00 00:00 Temp 100.6 100.2 100.0 100.6 100.2 100.0 Pulse 104 103 103 Resp 16 13 14 B/P (MAP) 128/76 (93) 135/66 (89) 117/65 (82) Pulse Ox 95 96 96 O2 Delivery Ventilator Ventilator Ventilator Mechanical Ventilator 06/17/19 06/17/19 06/17/19 06/17/19 00:00 00:15 01:00 02:00 Temp 99.5 99.5 99.7 99.5 99.5 99.7 Pulse 99 98 97 Resp 17 14 14 B/P (MAP) 118/70 (86) 133/71 (91) 131/68 (89) Pulse Ox 97 97 97 98 O2 Delivery Ventilator Ventilator Ventilator Ventilator 06/17/19 06/17/19 06/17/19 06/17/19 03:00 03:10 04:00 04:00 Temp 99.7 99.7 99.7 99.7 Pulse 100 96 Resp 13 14 B/P (MAP) 131/70 (90) 131/70 (90) Pulse Ox 98 97 99 O2 Delivery Ventilator Ventilator Mechanical Ventilator Ventilator 06/17/19 06/17/19 06/17/19 06/17/19 05:00 05:40 06:00 07:00 Temp 99.5 99.7 100.0 99.5 99.7 100.0 Pulse 96 99 99 Resp 12 15 12 B/P (MAP) 137/70 (92) 127/63 (84) 133/74 (93) Pulse Ox 98 98 98 98 O2 Delivery Ventilator Ventilator Ventilator Ventilator 06/17/19 06/17/19 06/17/19 06/17/19 08:00 08:00 08:00 09:19 Temp 100.0 100.0 Pulse 98 Resp 15 B/P (MAP) 137/72 (93) Pulse Ox 98 98 98 O2 Delivery Mechanical Ventilator Ventilator Ventilator Intake and Output 06/16/19 06/16/19 06/17/19 15:00 23:00 07:00 Intake Total 350 ml 1086 ml 626 ml Output Total 1075 ml 1455 ml 1415 ml Balance -725 ml -369 ml -789 ml Hemodynamically unstable?: Yes Is patient in severe pain?: Yes Is NPO status required?: Yes JERSON AVILES MD Jun 17, 2019 10:21
--- NOTE | 2019-06-17 10:31 | PDOC ---
PULMONARY PROGRESS NOTES Subjective INTUBATED SEC TO ENCEPHALOPATHY AND DECREASE SAT AC MODE/SEDATED Vitals Vital Signs Date Time Temp Pulse Resp B/P (MAP) Pulse Ox O2 Delivery O2 Flow Rate FiO2 06/17/19 09:19 98 06/17/19 08:00 Ventilator 06/17/19 08:00 100.0 98 15 137/72 (93) 100.0 Lungs: Clear Cardiovascular: S1, S2 Abdomen: Other ( DISTENDED) Extremities: No Edema Skin: Warm Labs Laboratory Tests Test 06/15/19 11:36 06/15/19 14:05 06/15/19 17:51 06/15/19 20:02 Glucose (Fingerstick) 226 mg/dL (70-99) 182 mg/dL (70-99) 171 mg/dL (70-99) Ionized Calcium 0.69 mmol/L (1.13-1.32) Test 06/15/19 23:55 06/16/19 00:01 06/16/19 04:22 06/16/19 05:00 Glucose (Fingerstick) 203 mg/dL (70-99) 189 mg/dL (70-99) Ionized Calcium 0.77 mmol/L (1.13-1.32) 0.83 mmol/L (1.13-1.32) White Blood Count 12.6 x10^3/uL (4.0-11.0) Red Blood Count 3.72 x10^6/uL (4.30-5.70) Hemoglobin 11.1 g/dL (13.0-17.5) Hematocrit 32.9 % (39.0-53.0) Mean Corpuscular Volume 89 fL (79-100) Mean Corpuscular Hemoglobin 30 pg (25-35) Mean Corpuscular Hemoglobin Concent 34 g/dL (31-37) Red Cell Distribution Width 14.0 % (11.5-14.5) Platelet Count 156 x10^3/uL (140-400) Neutrophils (%) (Auto) 89 % (31-73) Lymphocytes (%) (Auto) 3 % (24-48) Monocytes (%) (Auto) 8 % (0-9) Eosinophils (%) (Auto) 0 % (0-3) Basophils (%) (Auto) 0 % (0-3) Neutrophils # (Auto) 11.1 x10^3/uL (1.8-7.7) Lymphocytes # (Auto) 0.4 x10^3/uL (1.0-4.8) Monocytes # (Auto) 1.0 x10^3/uL (0.0-1.1) Eosinophils # (Auto) 0.0 x10^3/uL (0.0-0.7) Basophils # (Auto) 0.0 x10^3/uL (0.0-0.2) Sodium Level 144 mmol/L (136-145) Potassium Level 4.6 mmol/L (3.5-5.1) Chloride Level 107 mmol/L (98-107) Carbon Dioxide Level 26 mmol/L (21-32) Anion Gap 11 (6-14) Blood Urea Nitrogen 59 mg/dL (8-26) Creatinine 2.4 mg/dL (0.7-1.3) Estimated GFR (Cockcroft-Gault) 35.0 BUN/Creatinine Ratio 25 (6-20) Glucose Level 209 mg/dL (70-99) Calcium Level 6.6 mg/dL (8.5-10.1) Phosphorus Level 4.2 mg/dL (2.6-4.7) Magnesium Level 2.7 mg/dL (1.8-2.4) Total Bilirubin 5.5 mg/dL (0.2-1.0) Aspartate Amino Transf (AST/SGOT) 137 U/L (15-37) Alanine Aminotransferase (ALT/SGPT) 66 U/L (16-63) Alkaline Phosphatase 58 U/L (46-116) Total Protein 6.0 g/dL (6.4-8.2) Albumin 2.3 g/dL (3.4-5.0) Albumin/Globulin Ratio 0.6 (1.0-1.7) Lipase 475 U/L (73-393) Test 06/16/19 07:36 06/16/19 07:50 06/16/19 12:00 06/16/19 12:01 Glucose (Fingerstick) 210 mg/dL (70-99) 238 mg/dL (70-99) O2 Saturation 93 % (92-99) Arterial Blood pH 7.33 (7.35-7.45) Arterial Blood pCO2 at Patient Temp 46 mmHg (35-46) Arterial Blood pO2 at Patient Temp 75 mmHg (75-108) Arterial Blood HCO3 24 mmol/L (21-28) Arterial Blood Base Excess -3 mmol/L (-3-3) FiO2 40 Ionized Calcium 0.88 mmol/L (1.13-1.32) Test 06/16/19 12:20 06/16/19 16:07 06/16/19 18:00 06/16/19 19:48 Bedside Hematocrit 32 % (37-52) Bedside Venous pH 7.31 (7.32-7.42) Bedside Venous pCO2 53 mmHg (41-51) Bedside Venous pO2 79 mmHg (20-40) Bedside Venous HCO3 27 mmol/L (24-28) Bedside Venous Blood Total CO2 29 mmol/L (21-32) Bedside Venous Blood O2 Saturation 94 % Bedside Venous Blood Base Excess 1 mmol/L (0-3) POC Venous Hemoglobin (Calc) 10.9 g/dL (14-18) Bedside FiO2 20 Bedside Sodium 142 mmol/L (135-145) Bedside Potassium 4.7 mmol/L (3.5-5.0) Glucose Level 255 mg/dL (70-99) Bedside Ionized Calcium ([place]) 0.88 mmol/L (1.13-1.32) Glucose (Fingerstick) 185 mg/dL (70-99) 204 mg/dL (70-99) Ionized Calcium 0.92 mmol/L (1.13-1.32) Test 06/17/19 00:01 06/17/19 00:14 06/17/19 04:44 06/17/19 04:45 Ionized Calcium 0.97 mmol/L (1.13-1.32) 0.97 mmol/L (1.13-1.32) Glucose (Fingerstick) 219 mg/dL (70-99) 248 mg/dL (70-99) White Blood Count 12.4 x10^3/uL (4.0-11.0) Red Blood Count 3.43 x10^6/uL (4.30-5.70) Hemoglobin 10.3 g/dL (13.0-17.5) Hematocrit 30.8 % (39.0-53.0) Mean Corpuscular Volume 90 fL (79-100) Mean Corpuscular Hemoglobin 30 pg (25-35) Mean Corpuscular Hemoglobin Concent 33 g/dL (31-37) Red Cell Distribution Width 14.6 % (11.5-14.5) Platelet Count 177 x10^3/uL (140-400) Neutrophils (%) (Auto) 88 % (31-73) Lymphocytes (%) (Auto) 4 % (24-48) Monocytes (%) (Auto) 8 % (0-9) Eosinophils (%) (Auto) 0 % (0-3) Basophils (%) (Auto) 0 % (0-3) Neutrophils # (Auto) 11.0 x10^3/uL (1.8-7.7) Lymphocytes # (Auto) 0.4 x10^3/uL (1.0-4.8) Monocytes # (Auto) 1.0 x10^3/uL (0.0-1.1) Eosinophils # (Auto) 0.0 x10^3/uL (0.0-0.7) Basophils # (Auto) 0.0 x10^3/uL (0.0-0.2) Sodium Level 149 mmol/L (136-145) Potassium Level 5.3 mmol/L (3.5-5.1) Chloride Level 111 mmol/L (98-107) Carbon Dioxide Level 28 mmol/L (21-32) Anion Gap 10 (6-14) Blood Urea Nitrogen 45 mg/dL (8-26) Creatinine 1.9 mg/dL (0.7-1.3) Estimated GFR (Cockcroft-Gault) 45.8 Glucose Level 257 mg/dL (70-99) Calcium Level 7.7 mg/dL (8.5-10.1) Phosphorus Level 3.9 mg/dL (2.6-4.7) Magnesium Level 3.2 mg/dL (1.8-2.4) Albumin 2.0 g/dL (3.4-5.0) Test 06/17/19 08:49 Glucose (Fingerstick) 224 mg/dL (70-99) Laboratory Tests Test 06/16/19 12:00 06/16/19 12:01 06/16/19 12:20 06/16/19 16:07 Ionized Calcium 0.88 mmol/L (1.13-1.32) Glucose (Fingerstick) 238 mg/dL (70-99) 185 mg/dL (70-99) Bedside Hematocrit 32 % (37-52) Bedside Venous pH 7.31 (7.32-7.42) Bedside Venous pCO2 53 mmHg (41-51) Bedside Venous pO2 79 mmHg (20-40) Bedside Venous HCO3 27 mmol/L (24-28) Bedside Venous Blood Total CO2 29 mmol/L (21-32) Bedside Venous Blood O2 Saturation 94 % Bedside Venous Blood Base Excess 1 mmol/L (0-3) POC Venous Hemoglobin (Calc) 10.9 g/dL (14-18) Bedside FiO2 20 Bedside Sodium 142 mmol/L (135-145) Bedside Potassium 4.7 mmol/L (3.5-5.0) Glucose Level 255 mg/dL (70-99) Bedside Ionized Calcium ([place]) 0.88 mmol/L (1.13-1.32) Test 06/16/19 18:00 06/16/19 19:48 06/17/19 00:01 06/17/19 00:14 Ionized Calcium 0.92 mmol/L (1.13-1.32) 0.97 mmol/L (1.13-1.32) Glucose (Fingerstick) 204 mg/dL (70-99) 219 mg/dL (70-99) Test 06/17/19 04:44 06/17/19 04:45 06/17/19 08:49 Glucose (Fingerstick) 248 mg/dL (70-99) 224 mg/dL (70-99) White Blood Count 12.4 x10^3/uL (4.0-11.0) Red Blood Count 3.43 x10^6/uL (4.30-5.70) Hemoglobin 10.3 g/dL (13.0-17.5) Hematocrit 30.8 % (39.0-53.0) Mean Corpuscular Volume 90 fL (79-100) Mean Corpuscular Hemoglobin 30 pg (25-35) Mean Corpuscular Hemoglobin Concent 33 g/dL (31-37) Red Cell Distribution Width 14.6 % (11.5-14.5) Platelet Count 177 x10^3/uL (140-400) Neutrophils (%) (Auto) 88 % (31-73) Lymphocytes (%) (Auto) 4 % (24-48) Monocytes (%) (Auto) 8 % (0-9) Eosinophils (%) (Auto) 0 % (0-3) Basophils (%) (Auto) 0 % (0-3) Neutrophils # (Auto) 11.0 x10^3/uL (1.8-7.7) Lymphocytes # (Auto) 0.4 x10^3/uL (1.0-4.8) Monocytes # (Auto) 1.0 x10^3/uL (0.0-1.1) Eosinophils # (Auto) 0.0 x10^3/uL (0.0-0.7) Basophils # (Auto) 0.0 x10^3/uL (0.0-0.2) Sodium Level 149 mmol/L (136-145) Potassium Level 5.3 mmol/L (3.5-5.1) Chloride Level 111 mmol/L (98-107) Carbon Dioxide Level 28 mmol/L (21-32) Anion Gap 10 (6-14) Blood Urea Nitrogen 45 mg/dL (8-26) Creatinine 1.9 mg/dL (0.7-1.3) Estimated GFR (Cockcroft-Gault) 45.8 Glucose Level 257 mg/dL (70-99) Calcium Level 7.7 mg/dL (8.5-10.1) Ionized Calcium 0.97 mmol/L (1.13-1.32) Phosphorus Level 3.9 mg/dL (2.6-4.7) Magnesium Level 3.2 mg/dL (1.8-2.4) Albumin 2.0 g/dL (3.4-5.0) Medications Active Scripts Medications Dose Route/Sig Max Daily Dose Days Date Category Impression . IMPRESSION: 1. Acute hypoxemic respiratory failure, multifactorial. 2. Acute gallstone pancreatitis./ Necrosis 3. Acute kidney failure. improving 4. Metabolic toxic encephalopathy. 5. Hyperkalemia.corrected 6. Metabolic / respiratory acidosis 7. Hypocalcemia. 8. POSSIBLE ABD COMPARTMENT SYNDROME PRESSURE 20 9. HEP B S POSITIVE ID Plan Plan of Care Continue empiric merrem, renal dosing Zyvox added Renal ,GI and General Surgery following. Plans are for randi this admission BC neg to date Maintain aspiration precaution. Plan . SPOKE WITH DR JARA AT [facility] / CT ABDOMEN FINDINGS DISCUSSED. I AGREE WITH CONSERVATION APPROACH AT PRESENT AND HOLDING ON SURGERY. HIGH RISK OF DYING WITH SURGERY WILL NEED TO CLOSELY MONITOR CLINICALLY ABG NOTED / INCREASE AC RATE SUPPORT WITH ANTI BX IV FLUID REPLACE CA NEEDED OVERALL PROGNOSIS IS GUARDED AT THIS TIME LIPASE IMPROVING CCT 30 D/W TAYA SERRANO MD Jun 17, 2019 10:31
--- NOTE | 2019-06-17 10:46 | PDOC ---
SURGICAL PROGRESS NOTE Subjective Pt intubated and sedated. On 40% fio2, no pressors. Good uop. Abd pressures 20 Vital Signs Vital Signs Date Time Temp Pulse Resp B/P (MAP) Pulse Ox O2 Delivery O2 Flow Rate FiO2 06/17/19 09:19 98 06/17/19 08:00 Ventilator 06/17/19 08:00 100.0 98 15 137/72 (93) 100.0 I&O Intake and Output 06/17/19 07:00 Intake Total 2062 ml Output Total 3945 ml Balance -1883 ml IV Total 2062 ml Output Urine Total 3545 ml Gastric Drainage Total 400 ml PATIENT HAS A LEPE: Yes (accurate i and os) General: No acute distress Abdomen: Soft, Other (distended, NTTP, no masses) Labs Laboratory Tests Test 06/15/19 11:36 06/15/19 14:05 06/15/19 17:51 06/15/19 20:02 Glucose (Fingerstick) 226 mg/dL (70-99) 182 mg/dL (70-99) 171 mg/dL (70-99) Ionized Calcium 0.69 mmol/L (1.13-1.32) Test 06/15/19 23:55 06/16/19 00:01 06/16/19 04:22 06/16/19 05:00 Glucose (Fingerstick) 203 mg/dL (70-99) 189 mg/dL (70-99) Ionized Calcium 0.77 mmol/L (1.13-1.32) 0.83 mmol/L (1.13-1.32) White Blood Count 12.6 x10^3/uL (4.0-11.0) Red Blood Count 3.72 x10^6/uL (4.30-5.70) Hemoglobin 11.1 g/dL (13.0-17.5) Hematocrit 32.9 % (39.0-53.0) Mean Corpuscular Volume 89 fL (79-100) Mean Corpuscular Hemoglobin 30 pg (25-35) Mean Corpuscular Hemoglobin Concent 34 g/dL (31-37) Red Cell Distribution Width 14.0 % (11.5-14.5) Platelet Count 156 x10^3/uL (140-400) Neutrophils (%) (Auto) 89 % (31-73) Lymphocytes (%) (Auto) 3 % (24-48) Monocytes (%) (Auto) 8 % (0-9) Eosinophils (%) (Auto) 0 % (0-3) Basophils (%) (Auto) 0 % (0-3) Neutrophils # (Auto) 11.1 x10^3/uL (1.8-7.7) Lymphocytes # (Auto) 0.4 x10^3/uL (1.0-4.8) Monocytes # (Auto) 1.0 x10^3/uL (0.0-1.1) Eosinophils # (Auto) 0.0 x10^3/uL (0.0-0.7) Basophils # (Auto) 0.0 x10^3/uL (0.0-0.2) Sodium Level 144 mmol/L (136-145) Potassium Level 4.6 mmol/L (3.5-5.1) Chloride Level 107 mmol/L (98-107) Carbon Dioxide Level 26 mmol/L (21-32) Anion Gap 11 (6-14) Blood Urea Nitrogen 59 mg/dL (8-26) Creatinine 2.4 mg/dL (0.7-1.3) Estimated GFR (Cockcroft-Gault) 35.0 BUN/Creatinine Ratio 25 (6-20) Glucose Level 209 mg/dL (70-99) Calcium Level 6.6 mg/dL (8.5-10.1) Phosphorus Level 4.2 mg/dL (2.6-4.7) Magnesium Level 2.7 mg/dL (1.8-2.4) Total Bilirubin 5.5 mg/dL (0.2-1.0) Aspartate Amino Transf (AST/SGOT) 137 U/L (15-37) Alanine Aminotransferase (ALT/SGPT) 66 U/L (16-63) Alkaline Phosphatase 58 U/L (46-116) Total Protein 6.0 g/dL (6.4-8.2) Albumin 2.3 g/dL (3.4-5.0) Albumin/Globulin Ratio 0.6 (1.0-1.7) Lipase 475 U/L (73-393) Test 06/16/19 07:36 06/16/19 07:50 06/16/19 12:00 3/2/20 12:01 Glucose (Fingerstick) 210 mg/dL (70-99) 238 mg/dL (70-99) O2 Saturation 93 % (92-99) Arterial Blood pH 7.33 (7.35-7.45) Arterial Blood pCO2 at Patient Temp 46 mmHg (35-46) Arterial Blood pO2 at Patient Temp 75 mmHg (75-108) Arterial Blood HCO3 24 mmol/L (21-28) Arterial Blood Base Excess -3 mmol/L (-3-3) FiO2 40 Ionized Calcium 0.88 mmol/L (1.13-1.32) Test 06/16/19 12:20 06/16/19 16:07 06/16/19 18:00 06/16/19 19:48 Bedside Hematocrit 32 % (37-52) Bedside Venous pH 7.31 (7.32-7.42) Bedside Venous pCO2 53 mmHg (41-51) Bedside Venous pO2 79 mmHg (20-40) Bedside Venous HCO3 27 mmol/L (24-28) Bedside Venous Blood Total CO2 29 mmol/L (21-32) Bedside Venous Blood O2 Saturation 94 % Bedside Venous Blood Base Excess 1 mmol/L (0-3) POC Venous Hemoglobin (Calc) 10.9 g/dL (14-18) Bedside FiO2 20 Bedside Sodium 142 mmol/L (135-145) Bedside Potassium 4.7 mmol/L (3.5-5.0) Glucose Level 255 mg/dL (70-99) Bedside Ionized Calcium ([place]) 0.88 mmol/L (1.13-1.32) Glucose (Fingerstick) 185 mg/dL (70-99) 204 mg/dL (70-99) Ionized Calcium 0.92 mmol/L (1.13-1.32) Test 06/17/19 00:01 06/17/19 00:14 06/17/19 04:44 06/17/19 04:45 Ionized Calcium 0.97 mmol/L (1.13-1.32) 0.97 mmol/L (1.13-1.32) Glucose (Fingerstick) 219 mg/dL (70-99) 248 mg/dL (70-99) White Blood Count 12.4 x10^3/uL (4.0-11.0) Red Blood Count 3.43 x10^6/uL (4.30-5.70) Hemoglobin 10.3 g/dL (13.0-17.5) Hematocrit 30.8 % (39.0-53.0) Mean Corpuscular Volume 90 fL (79-100) Mean Corpuscular Hemoglobin 30 pg (25-35) Mean Corpuscular Hemoglobin Concent 33 g/dL (31-37) Red Cell Distribution Width 14.6 % (11.5-14.5) Platelet Count 177 x10^3/uL (140-400) Neutrophils (%) (Auto) 88 % (31-73) Lymphocytes (%) (Auto) 4 % (24-48) Monocytes (%) (Auto) 8 % (0-9) Eosinophils (%) (Auto) 0 % (0-3) Basophils (%) (Auto) 0 % (0-3) Neutrophils # (Auto) 11.0 x10^3/uL (1.8-7.7) Lymphocytes # (Auto) 0.4 x10^3/uL (1.0-4.8) Monocytes # (Auto) 1.0 x10^3/uL (0.0-1.1) Eosinophils # (Auto) 0.0 x10^3/uL (0.0-0.7) Basophils # (Auto) 0.0 x10^3/uL (0.0-0.2) Sodium Level 149 mmol/L (136-145) Potassium Level 5.3 mmol/L (3.5-5.1) Chloride Level 111 mmol/L (98-107) Carbon Dioxide Level 28 mmol/L (21-32) Anion Gap 10 (6-14) Blood Urea Nitrogen 45 mg/dL (8-26) Creatinine 1.9 mg/dL (0.7-1.3) Estimated GFR (Cockcroft-Gault) 45.8 Glucose Level 257 mg/dL (70-99) Calcium Level 7.7 mg/dL (8.5-10.1) Phosphorus Level 3.9 mg/dL (2.6-4.7) Magnesium Level 3.2 mg/dL (1.8-2.4) Albumin 2.0 g/dL (3.4-5.0) Test 06/17/19 08:49 Glucose (Fingerstick) 224 mg/dL (70-99) Laboratory Tests Test 06/16/19 12:00 06/16/19 12:01 06/16/19 12:20 06/16/19 16:07 Ionized Calcium 0.88 mmol/L (1.13-1.32) Glucose (Fingerstick) 238 mg/dL (70-99) 185 mg/dL (70-99) Bedside Hematocrit 32 % (37-52) Bedside Venous pH 7.31 (7.32-7.42) Bedside Venous pCO2 53 mmHg (41-51) Bedside Venous pO2 79 mmHg (20-40) Bedside Venous HCO3 27 mmol/L (24-28) Bedside Venous Blood Total CO2 29 mmol/L (21-32) Bedside Venous Blood O2 Saturation 94 % Bedside Venous Blood Base Excess 1 mmol/L (0-3) POC Venous Hemoglobin (Calc) 10.9 g/dL (14-18) Bedside FiO2 20 Bedside Sodium 142 mmol/L (135-145) Bedside Potassium 4.7 mmol/L (3.5-5.0) Glucose Level 255 mg/dL (70-99) Bedside Ionized Calcium ([place]) 0.88 mmol/L (1.13-1.32) Test 06/16/19 18:00 06/16/19 19:48 06/17/19 00:01 06/17/19 00:14 Ionized Calcium 0.92 mmol/L (1.13-1.32) 0.97 mmol/L (1.13-1.32) Glucose (Fingerstick) 204 mg/dL (70-99) 219 mg/dL (70-99) Test 06/17/19 04:44 06/17/19 04:45 06/17/19 08:49 Glucose (Fingerstick) 248 mg/dL (70-99) 224 mg/dL (70-99) White Blood Count 12.4 x10^3/uL (4.0-11.0) Red Blood Count 3.43 x10^6/uL (4.30-5.70) Hemoglobin 10.3 g/dL (13.0-17.5) Hematocrit 30.8 % (39.0-53.0) Mean Corpuscular Volume 90 fL (79-100) Mean Corpuscular Hemoglobin 30 pg (25-35) Mean Corpuscular Hemoglobin Concent 33 g/dL (31-37) Red Cell Distribution Width 14.6 % (11.5-14.5) Platelet Count 177 x10^3/uL (140-400) Neutrophils (%) (Auto) 88 % (31-73) Lymphocytes (%) (Auto) 4 % (24-48) Monocytes (%) (Auto) 8 % (0-9) Eosinophils (%) (Auto) 0 % (0-3) Basophils (%) (Auto) 0 % (0-3) Neutrophils # (Auto) 11.0 x10^3/uL (1.8-7.7) Lymphocytes # (Auto) 0.4 x10^3/uL (1.0-4.8) Monocytes # (Auto) 1.0 x10^3/uL (0.0-1.1) Eosinophils # (Auto) 0.0 x10^3/uL (0.0-0.7) Basophils # (Auto) 0.0 x10^3/uL (0.0-0.2) Sodium Level 149 mmol/L (136-145) Potassium Level 5.3 mmol/L (3.5-5.1) Chloride Level 111 mmol/L (98-107) Carbon Dioxide Level 28 mmol/L (21-32) Anion Gap 10 (6-14) Blood Urea Nitrogen 45 mg/dL (8-26) Creatinine 1.9 mg/dL (0.7-1.3) Estimated GFR (Cockcroft-Gault) 45.8 Glucose Level 257 mg/dL (70-99) Calcium Level 7.7 mg/dL (8.5-10.1) Ionized Calcium 0.97 mmol/L (1.13-1.32) Phosphorus Level 3.9 mg/dL (2.6-4.7) Magnesium Level 3.2 mg/dL (1.8-2.4) Albumin 2.0 g/dL (3.4-5.0) I have reviewed the following CT with evidence of pancreatic necrosis Problem List Problems Medical Problems: (1) Acute pancreatitis Status: Acute (2) Nausea & vomiting Status: Acute Assessment/Plan severe pancreatitis, now with necrosis pt with some clinical improvement factors (improved pulm and renal aspects) given these factors, will attempt to avoid surgery. Early necrosectomy associated with increased morbidity and mortality. d/w pulmonary and pt's on phone. KARLA CALL MD Jun 17, 2019 10:46
[2019-06-17 11:11] LABS: BASE EXCESS ABG 2 mmol/L (-3-3); HCO3 ABG 29 mmol/L (21-28); PCO2 ABG 56 mmHg (35-46); PO2 ABG 89 mmHg (75-108); SAT O2 ABG 96 % (92-99)
[2019-06-17 11:13] LABS: FIO2 ABG 40
--- NOTE | 2019-06-17 12:04 | PDOC ---
G I PROGRESS NOTE Subjective Sedated on ventilator. Objective OG output bilious. Physical Exam Lungs clear anteriorly. RRR Abdomen distended, firm, absent bowel sounds. Review of Relevant I have reviewed the following items alexandra (where applicable) has been applied. Labs Laboratory Tests Test 06/15/19 14:05 06/15/19 17:51 06/15/19 20:02 06/15/19 23:55 Ionized Calcium 0.69 mmol/L (1.13-1.32) Glucose (Fingerstick) 182 mg/dL (70-99) 171 mg/dL (70-99) 203 mg/dL (70-99) Test 06/16/19 00:01 06/16/19 04:22 06/16/19 05:00 06/16/19 07:36 Ionized Calcium 0.77 mmol/L (1.13-1.32) 0.83 mmol/L (1.13-1.32) Glucose (Fingerstick) 189 mg/dL (70-99) 210 mg/dL (70-99) White Blood Count 12.6 x10^3/uL (4.0-11.0) Red Blood Count 3.72 x10^6/uL (4.30-5.70) Hemoglobin 11.1 g/dL (13.0-17.5) Hematocrit 32.9 % (39.0-53.0) Mean Corpuscular Volume 89 fL (79-100) Mean Corpuscular Hemoglobin 30 pg (25-35) Mean Corpuscular Hemoglobin Concent 34 g/dL (31-37) Red Cell Distribution Width 14.0 % (11.5-14.5) Platelet Count 156 x10^3/uL (140-400) Neutrophils (%) (Auto) 89 % (31-73) Lymphocytes (%) (Auto) 3 % (24-48) Monocytes (%) (Auto) 8 % (0-9) Eosinophils (%) (Auto) 0 % (0-3) Basophils (%) (Auto) 0 % (0-3) Neutrophils # (Auto) 11.1 x10^3/uL (1.8-7.7) Lymphocytes # (Auto) 0.4 x10^3/uL (1.0-4.8) Monocytes # (Auto) 1.0 x10^3/uL (0.0-1.1) Eosinophils # (Auto) 0.0 x10^3/uL (0.0-0.7) Basophils # (Auto) 0.0 x10^3/uL (0.0-0.2) Sodium Level 144 mmol/L (136-145) Potassium Level 4.6 mmol/L (3.5-5.1) Chloride Level 107 mmol/L (98-107) Carbon Dioxide Level 26 mmol/L (21-32) Anion Gap 11 (6-14) Blood Urea Nitrogen 59 mg/dL (8-26) Creatinine 2.4 mg/dL (0.7-1.3) Estimated GFR (Cockcroft-Gault) 35.0 BUN/Creatinine Ratio 25 (6-20) Glucose Level 209 mg/dL (70-99) Calcium Level 6.6 mg/dL (8.5-10.1) Phosphorus Level 4.2 mg/dL (2.6-4.7) Magnesium Level 2.7 mg/dL (1.8-2.4) Total Bilirubin 5.5 mg/dL (0.2-1.0) Aspartate Amino Transf (AST/SGOT) 137 U/L (15-37) Alanine Aminotransferase (ALT/SGPT) 66 U/L (16-63) Alkaline Phosphatase 58 U/L (46-116) Total Protein 6.0 g/dL (6.4-8.2) Albumin 2.3 g/dL (3.4-5.0) Albumin/Globulin Ratio 0.6 (1.0-1.7) Lipase 475 U/L (73-393) Test 06/16/19 07:50 06/16/19 12:00 06/16/19 12:01 06/16/19 12:20 O2 Saturation 93 % (92-99) Arterial Blood pH 7.33 (7.35-7.45) Arterial Blood pCO2 at Patient Temp 46 mmHg (35-46) Arterial Blood pO2 at Patient Temp 75 mmHg (75-108) Arterial Blood HCO3 24 mmol/L (21-28) Arterial Blood Base Excess -3 mmol/L (-3-3) FiO2 40 Ionized Calcium 0.88 mmol/L (1.13-1.32) Glucose (Fingerstick) 238 mg/dL (70-99) Bedside Hematocrit 32 % (37-52) Bedside Venous pH 7.31 (7.32-7.42) Bedside Venous pCO2 53 mmHg (41-51) Bedside Venous pO2 79 mmHg (20-40) Bedside Venous HCO3 27 mmol/L (24-28) Bedside Venous Blood Total CO2 29 mmol/L (21-32) Bedside Venous Blood O2 Saturation 94 % Bedside Venous Blood Base Excess 1 mmol/L (0-3) POC Venous Hemoglobin (Calc) 10.9 g/dL (14-18) Bedside FiO2 20 Bedside Sodium 142 mmol/L (135-145) Bedside Potassium 4.7 mmol/L (3.5-5.0) Glucose Level 255 mg/dL (70-99) Bedside Ionized Calcium ([place]) 0.88 mmol/L (1.13-1.32) Test 06/16/19 16:07 06/16/19 18:00 06/16/19 19:48 06/17/19 00:01 Glucose (Fingerstick) 185 mg/dL (70-99) 204 mg/dL (70-99) Ionized Calcium 0.92 mmol/L (1.13-1.32) 0.97 mmol/L (1.13-1.32) Test 06/17/19 00:14 06/17/19 04:44 06/17/19 04:45 06/17/19 08:00 Glucose (Fingerstick) 219 mg/dL (70-99) 248 mg/dL (70-99) White Blood Count 12.4 x10^3/uL (4.0-11.0) Red Blood Count 3.43 x10^6/uL (4.30-5.70) Hemoglobin 10.3 g/dL (13.0-17.5) Hematocrit 30.8 % (39.0-53.0) Mean Corpuscular Volume 90 fL (79-100) Mean Corpuscular Hemoglobin 30 pg (25-35) Mean Corpuscular Hemoglobin Concent 33 g/dL (31-37) Red Cell Distribution Width 14.6 % (11.5-14.5) Platelet Count 177 x10^3/uL (140-400) Neutrophils (%) (Auto) 88 % (31-73) Lymphocytes (%) (Auto) 4 % (24-48) Monocytes (%) (Auto) 8 % (0-9) Eosinophils (%) (Auto) 0 % (0-3) Basophils (%) (Auto) 0 % (0-3) Neutrophils # (Auto) 11.0 x10^3/uL (1.8-7.7) Lymphocytes # (Auto) 0.4 x10^3/uL (1.0-4.8) Monocytes # (Auto) 1.0 x10^3/uL (0.0-1.1) Eosinophils # (Auto) 0.0 x10^3/uL (0.0-0.7) Basophils # (Auto) 0.0 x10^3/uL (0.0-0.2) Sodium Level 149 mmol/L (136-145) Potassium Level 5.3 mmol/L (3.5-5.1) Chloride Level 111 mmol/L (98-107) Carbon Dioxide Level 28 mmol/L (21-32) Anion Gap 10 (6-14) Blood Urea Nitrogen 45 mg/dL (8-26) Creatinine 1.9 mg/dL (0.7-1.3) Estimated GFR (Cockcroft-Gault) 45.8 Glucose Level 257 mg/dL (70-99) Calcium Level 7.7 mg/dL (8.5-10.1) Ionized Calcium 0.97 mmol/L (1.13-1.32) Phosphorus Level 3.9 mg/dL (2.6-4.7) Magnesium Level 3.2 mg/dL (1.8-2.4) Albumin 2.0 g/dL (3.4-5.0) O2 Saturation 96 % (92-99) Arterial Blood pH 7.33 (7.35-7.45) Arterial Blood pCO2 at Patient Temp 56 mmHg (35-46) Arterial Blood pO2 at Patient Temp 89 mmHg (75-108) Arterial Blood HCO3 29 mmol/L (21-28) Arterial Blood Base Excess 2 mmol/L (-3-3) FiO2 40 Test 06/17/19 08:49 06/17/19 10:36 Glucose (Fingerstick) 224 mg/dL (70-99) Ionized Calcium 1.05 mmol/L (1.13-1.32) Laboratory Tests Test 06/16/19 12:20 06/16/19 16:07 06/16/19 18:00 06/16/19 19:48 Bedside Hematocrit 32 % (37-52) Bedside Venous pH 7.31 (7.32-7.42) Bedside Venous pCO2 53 mmHg (41-51) Bedside Venous pO2 79 mmHg (20-40) Bedside Venous HCO3 27 mmol/L (24-28) Bedside Venous Blood Total CO2 29 mmol/L (21-32) Bedside Venous Blood O2 Saturation 94 % Bedside Venous Blood Base Excess 1 mmol/L (0-3) POC Venous Hemoglobin (Calc) 10.9 g/dL (14-18) Bedside FiO2 20 Bedside Sodium 142 mmol/L (135-145) Bedside Potassium 4.7 mmol/L (3.5-5.0) Glucose Level 255 mg/dL (70-99) Bedside Ionized Calcium ([place]) 0.88 mmol/L (1.13-1.32) Glucose (Fingerstick) 185 mg/dL (70-99) 204 mg/dL (70-99) Ionized Calcium 0.92 mmol/L (1.13-1.32) Test 06/17/19 00:01 06/17/19 00:14 06/17/19 04:44 06/17/19 04:45 Ionized Calcium 0.97 mmol/L (1.13-1.32) 0.97 mmol/L (1.13-1.32) Glucose (Fingerstick) 219 mg/dL (70-99) 248 mg/dL (70-99) White Blood Count 12.4 x10^3/uL (4.0-11.0) Red Blood Count 3.43 x10^6/uL (4.30-5.70) Hemoglobin 10.3 g/dL (13.0-17.5) Hematocrit 30.8 % (39.0-53.0) Mean Corpuscular Volume 90 fL (79-100) Mean Corpuscular Hemoglobin 30 pg (25-35) Mean Corpuscular Hemoglobin Concent 33 g/dL (31-37) Red Cell Distribution Width 14.6 % (11.5-14.5) Platelet Count 177 x10^3/uL (140-400) Neutrophils (%) (Auto) 88 % (31-73) Lymphocytes (%) (Auto) 4 % (24-48) Monocytes (%) (Auto) 8 % (0-9) Eosinophils (%) (Auto) 0 % (0-3) Basophils (%) (Auto) 0 % (0-3) Neutrophils # (Auto) 11.0 x10^3/uL (1.8-7.7) Lymphocytes # (Auto) 0.4 x10^3/uL (1.0-4.8) Monocytes # (Auto) 1.0 x10^3/uL (0.0-1.1) Eosinophils # (Auto) 0.0 x10^3/uL (0.0-0.7) Basophils # (Auto) 0.0 x10^3/uL (0.0-0.2) Sodium Level 149 mmol/L (136-145) Potassium Level 5.3 mmol/L (3.5-5.1) Chloride Level 111 mmol/L (98-107) Carbon Dioxide Level 28 mmol/L (21-32) Anion Gap 10 (6-14) Blood Urea Nitrogen 45 mg/dL (8-26) Creatinine 1.9 mg/dL (0.7-1.3) Estimated GFR (Cockcroft-Gault) 45.8 Glucose Level 257 mg/dL (70-99) Calcium Level 7.7 mg/dL (8.5-10.1) Phosphorus Level 3.9 mg/dL (2.6-4.7) Magnesium Level 3.2 mg/dL (1.8-2.4) Albumin 2.0 g/dL (3.4-5.0) Test 06/17/19 08:00 06/17/19 08:49 06/17/19 10:36 O2 Saturation 96 % (92-99) Arterial Blood pH 7.33 (7.35-7.45) Arterial Blood pCO2 at Patient Temp 56 mmHg (35-46) Arterial Blood pO2 at Patient Temp 89 mmHg (75-108) Arterial Blood HCO3 29 mmol/L (21-28) Arterial Blood Base Excess 2 mmol/L (-3-3) FiO2 40 Glucose (Fingerstick) 224 mg/dL (70-99) Ionized Calcium 1.05 mmol/L (1.13-1.32) Microbiology 06/14/19 Blood Culture - Preliminary, Resulted NO GROWTH AFTER 2 DAYS Vitals/I & O Vital Sign - Last 24 Hours 06/16/19 06/16/19 06/16/19 06/16/19 12:12 12:13 14:00 14:53 Temp 100.9 100.9 Pulse 115 113 Resp 16 20 15 B/P (MAP) 138/76 (96) 129/75 (93) Pulse Ox 96 96 94 O2 Delivery Ventilator Mechanical Ventilator Ventilator Ventilator 06/16/19 06/16/19 06/16/19 06/16/19 15:55 16:04 16:08 18:00 Temp 100.3 100.6 100.3 100.6 Pulse 109 106 Resp 15 17 B/P (MAP) 130/74 (92) 134/76 (95) Pulse Ox 95 96 96 O2 Delivery Ventilator Mechanical Ventilator Ventilator Ventilator 06/16/19 06/16/19 06/16/19 06/16/19 18:10 19:00 20:00 20:00 Temp 100.6 100.8 100.6 100.8 Pulse 105 106 Resp 16 17 B/P (MAP) 140/70 (93) 137/74 (95) Pulse Ox 97 94 96 O2 Delivery Ventilator Ventilator Mechanical Ventilator Ventilator 06/16/19 06/16/19 06/16/19 06/16/19 20:00 20:59 21:00 22:00 Temp 100.6 100.2 100.6 100.2 Pulse 104 103 Resp 16 13 B/P (MAP) 128/76 (93) 135/66 (89) Pulse Ox 95 95 95 96 O2 Delivery Ventilator Ventilator Ventilator Ventilator 06/16/19 06/17/19 06/17/19 06/17/19 23:00 00:00 00:00 00:15 Temp 100.0 99.5 100.0 99.5 Pulse 103 99 Resp 14 17 B/P (MAP) 117/65 (82) 118/70 (86) Pulse Ox 96 97 97 O2 Delivery Ventilator Mechanical Ventilator Ventilator Ventilator 06/17/19 06/17/19 06/17/19 06/17/19 01:00 02:00 03:00 03:10 Temp 99.5 99.7 99.7 99.5 99.7 99.7 Pulse 98 97 100 Resp 14 14 13 B/P (MAP) 133/71 (91) 131/68 (89) 131/70 (90) Pulse Ox 97 98 98 97 O2 Delivery Ventilator Ventilator Ventilator Ventilator 06/17/19 06/17/19 06/17/19 06/17/19 04:00 04:00 05:00 05:40 Temp 99.7 99.5 99.7 99.5 Pulse 96 96 Resp 14 12 B/P (MAP) 131/70 (90) 137/70 (92) Pulse Ox 99 98 98 O2 Delivery Mechanical Ventilator Ventilator Ventilator Ventilator 06/17/19 06/17/19 06/17/19 06/17/19 06:00 07:00 08:00 08:00 Temp 99.7 100.0 100.0 99.7 100.0 100.0 Pulse 99 99 98 Resp 15 12 15 B/P (MAP) 127/63 (84) 133/74 (93) 137/72 (93) Pulse Ox 98 98 98 O2 Delivery Ventilator Ventilator Mechanical Ventilator Ventilator 06/17/19 06/17/19 06/17/19 06/17/19 08:00 09:00 09:19 10:00 Temp 100.0 100.2 100.0 100.2 Pulse 99 98 Resp 14 14 B/P (MAP) 127/69 (88) 119/72 (88) Pulse Ox 98 98 98 99 O2 Delivery Ventilator Ventilator Ventilator 06/17/19 11:00 Temp 100.6 100.6 Pulse 97 Resp 15 B/P (MAP) 135/74 (94) Pulse Ox 100 O2 Delivery Ventilator Intake and Output 06/16/19 06/16/19 06/17/19 15:00 23:00 07:00 Intake Total 350 ml 1086 ml 626 ml Output Total 1075 ml 1455 ml 1415 ml Balance -725 ml -369 ml -[address], may have developed pancreatic necrosis. Problem List Problems Medical Problems: (1) Acute pancreatitis Status: Acute (2) Nausea & vomiting Status: Acute Assessment Severe pancreatitis. MOSF secondary. Plan of Care Note Continue support. Discussed with Dr. Dawson; may need to consider necrosectomy. Hemodynamically unstable?: Yes Is patient in severe pain?: Yes Is NPO status required?: Yes MARIA L CRUZ MD Jun 17, 2019 12:04
[2019-06-17] MEDS: CHLORHEXIDINE 0.12% 15 ML MOUTHWASH. MM SCH ×2 (13:09→20:59)
[2019-06-17] MEDS: ACETAMINOPHEN 650 MG SUPP.RECT. PR PRN (13:09)
[2019-06-18] VITALS (25 sets, daily range): BP systolic 102–188; BP diastolic 60–108
[2019-06-18] MEDS: INSULIN LISPRO 300 UNITS/3 ML VIAL. SQ SCH ×6 (00:01→20:56)
[2019-06-18] MEDS: DEXMEDETOMIDINE 400 MCG in IV NORMAL SALINE 100ML 96 ML IV PRN ×4 (00:24→23:56)
[2019-06-18] MEDS: AA 4.25 %/CALCIUM/LYTES/D5W 1,000 ML IV SCH (03:45)
[2019-06-18 05:45] LABS: BASO % 0 % (0-3); EOS % 0 % (0-3); HEMATOCRIT 29.6 % (39.0-53.0); HEMOGLOBIN 9.6 g/dL (13.0-17.5); LYMPH # 0.7 x10^3/uL (1.0-4.8); LYMPH % 4 % (24-48); MEAN CORPUSCULAR HEMOGLOBIN 29 pg (25-35); MEAN CORPUSCULAR HGB CONC 32 g/dL (31-37); MEAN CORPUSCULAR VOLUME 90 fL (79-100); MONO # 0.9 x10^3/uL (0.0-1.1); MONO % 5 % (0-9); NEUT # 15.3 x10^3/uL (1.8-7.7); NEUT % 91 % (31-73); PLATELET COUNT 222 x10^3/uL (140-400); RED BLOOD COUNT 3.29 x10^6/uL (4.30-5.70); RED CELL DISTRIBUTION WIDTH 14.9 % (11.5-14.5); WHITE BLOOD COUNT 16.9 x10^3/uL (4.0-11.0)
[2019-06-18 05:56] LABS: ALBUMIN 1.9 g/dL (3.4-5.0); CALCIUM 8.6 mg/dL (8.5-10.1); CREATININE 1.7 mg/dL (0.7-1.3); GFR 52.1; PHOSPHORUS 2.7 mg/dL (2.6-4.7); POTASSIUM 5.7 mmol/L (3.5-5.1)
[2019-06-18] MEDS: PANTOPRAZOLE IV PUSH 40 MG VIAL. IVP SCH ×2 (06:12→17:43)
[2019-06-18] MEDS: CALCIUM GLUCONATE IV PRN (06:12)
[2019-06-18] MEDS: NORMAL SALINE IV PRN (06:12)
--- NOTE | 2019-06-18 07:31 | PDOC ---
Infectious Disease Note Subjective Subjective Now intubated, FiO2 40% 5 PEEP Sedated BC repeated and Zyvox added ROS ROS unable to obtain Vital Sign Vital Signs Vital Signs Date Time Temp Pulse Resp B/P (MAP) Pulse Ox O2 Delivery O2 Flow Rate FiO2 06/18/19 06:00 99.7 91 18 128/75 (92) 98 Ventilator 99.7 06/18/19 00:23 3.0 Physical Exam PHYSICAL EXAM GENERAL: Sedated, orally intubated on vent, mitts HEENT: Pupils equal, small. OGT/ETT in place NECK: Supple no JVD LUNGS: Diminished aeration bases HEART: S1, S2, regular, no murmurs. ABDOMEN: Distended, tight but some soft, no guarding to palpation, BS hypoactive : [place] EXTREMITIES: trace edema, no cyanosis. SCDs bilaterally SKIN: Warm, dry. 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32) Glucose (Fingerstick) 244 mg/dL (70-99) 264 mg/dL (70-99) Test 06/18/19 04:45 06/18/19 04:50 White Blood Count 16.9 x10^3/uL (4.0-11.0) Red Blood Count 3.29 x10^6/uL (4.30-5.70) Hemoglobin 9.6 g/dL (13.0-17.5) Hematocrit 29.6 % (39.0-53.0) Mean Corpuscular Volume 90 fL (79-100) Mean Corpuscular Hemoglobin 29 pg (25-35) Mean Corpuscular Hemoglobin Concent 32 g/dL (31-37) Red Cell Distribution Width 14.9 % (11.5-14.5) Platelet Count 222 x10^3/uL (140-400) Neutrophils (%) (Auto) 91 % (31-73) Lymphocytes (%) (Auto) 4 % (24-48) Monocytes (%) (Auto) 5 % (0-9) Eosinophils (%) (Auto) 0 % (0-3) Basophils (%) (Auto) 0 % (0-3) Neutrophils # (Auto) 15.3 x10^3/uL (1.8-7.7) Lymphocytes # (Auto) 0.7 x10^3/uL (1.0-4.8) Monocytes # (Auto) 0.9 x10^3/uL (0.0-1.1) Eosinophils # (Auto) 0.0 x10^3/uL (0.0-0.7) Basophils # (Auto) 0.0 x10^3/uL (0.0-0.2) Sodium Level 154 mmol/L (136-145) Potassium Level 5.7 mmol/L (3.5-5.1) Chloride Level 116 mmol/L (98-107) Carbon Dioxide Level 31 mmol/L (21-32) Anion Gap 7 (6-14) Blood Urea Nitrogen 45 mg/dL (8-26) Creatinine 1.7 mg/dL (0.7-1.3) Estimated GFR (Cockcroft-Gault) 52.1 Glucose Level 275 mg/dL (70-99) Calcium Level 8.6 mg/dL (8.5-10.1) Ionized Calcium 1.12 mmol/L (1.13-1.32) Phosphorus Level 2.7 mg/dL (2.6-4.7) Magnesium Level 3.1 mg/dL (1.8-2.4) Albumin 1.9 g/dL (3.4-5.0) Glucose (Fingerstick) 256 mg/dL (70-99) Micro CT 06/15 Lower chest: Moderate left and small right pleural effusions with adjacent atelectasis. Abdomen and pelvis: Severe findings of pancreatitis. Diffuse hypoattenuation of the pancreas, concerning for necrosis. Evaluation degraded without IV contrast. Fluid collection along the inferior aspect of the stomach measures 9.6 x 4.0 cm. Loculated fluid collection along the anterior aspect of the pancreas measures 3.0 x 2.6 cm. Severe inflammatory changes extending inferiorly. Small perihepatic free fluid. Bilateral perinephric inflammatory changes. Cholelithiasis. The liver, spleen, adrenal glands and kidneys are unremarkable noncontrast appearance. No hydronephrosis. Regions of colonic wall thickening, likely reactive. Normal appendix. Enteric tube within the stomach. No evidence of small bowel obstruction. Duodenal proximal jejunal wall thickening, likely reactive. Multiple enlarged mesenteric lymph nodes.. Catheter within the urinary bladder. Mild body wall edema. Impression: 1. Increased severe pancreatitis with extensive inflammatory changes and hypoattenuation of the pancreas, concerning for necrosis although evaluation degraded without IV contrast. 2. New fluid collection along the inferior aspect of the stomach and anterior aspect of the pancreas. 3. Increased multifocal colonic and small bowel wall thickening, likely reactive. 4. New small perihepatic free fluid. 5. Cholelithiasis. 6. Mesenteric lymphadenopathy, likely reactive. 7. Moderate left and small right pleural effusion with adjacent atelectasis. Microbiology 06/14/19 Blood Culture - Preliminary, Resulted NO GROWTH AFTER 1 DAY Objective Assessment Fever - better - over the last 10 hours - core temps Leukocytosis - mild elevation today - ? reactive - clinically stable - temps improved Gallbladder stone pancreatitis - lipase 475 06/15. CT 06/15 - Fluid collection along the inferior aspect of the stomach measures 9.6 x 4.0 cm. Loculated fluid collection along the anterior aspect of the pancreas measures 3.0 x 2.6 cm . Sepsis from GI Acute Resp failure - intubated Lactic acidosis. Acute kidney injury previously requiring dialysis - now with improved UOP, HDC (06/13) Metabolic acidosis. Hypocalcemia Basilar atelectasis. Plan Plan of Care Clinically stable to some improvement. ? WBC leukomoid. Will monitor and if temps increase or he worsens will check cults and expand with Micafungin but for now try to avoid additional meds as he seems some better Continue empiric merrem - increase dose Zyvox added Reviewed GI and surgical notes CBC in am Renal, GI and General Surgery/Pulm following. BC neg to date Maintain aspiration precaution. D/w nursing Critically ill D/w / LE CROWLEY MD Jun 18, 2019 07:31
--- NOTE | 2019-06-18 07:48 | RAD ---
Single view of the chest. 06/18/2019 9:00 AM Indication: Ventilatory support Comparison: Chest radiograph, yesterday Findings: There is a right internal jugular temporary dialysis catheter with tip at the cavoatrial junction. Endotracheal tube has its tip approximately 2.4 cm above the kang. There is an enteric tube with tip extending in the proximal stomach. No pneumothorax is seen. Lung volumes are low with scattered mild bilateral infiltrates or atelectasis. Overall aeration appears somewhat improved. Nonspecific left basilar opacity may represent small effusion, atelectasis, or infiltrate. IMPRESSION: 1. Stable support lines and tubes 2. Low lung volumes 3. Some improvement in patchy bilateral atelectasis or infiltrates 4. Small left pleural effusion, atelectasis, or infiltrate is similar Electronically signed by: Miguelito Mcpherson MD (06/18/2019 7:45 AM) [id number]
[2019-06-18] MEDS: MEROPENEM 500 MG in IV NORMAL SALINE 50ML 50 ML IV SCH ×3 (08:08→17:27)
--- NOTE | 2019-06-18 08:45 | PDOC ---
SURGICAL PROGRESS NOTE Subjective Pt intubated and sedated Vital Signs Vital Signs Date Time Temp Pulse Resp B/P (MAP) Pulse Ox O2 Delivery O2 Flow Rate FiO2 06/18/19 06:00 99.7 91 18 128/75 (92) 98 Ventilator 99.7 06/18/19 00:23 3.0 I&O Intake and Output 06/18/19 07:00 Intake Total 1677.5 ml Output Total 3310 ml Balance -1632.5 ml IV Total 1677.5 ml Output Urine Total 2860 ml Gastric Drainage Total 450 ml PATIENT HAS A LEPE: Yes (accurate i and os) General: No acute distress Abdomen: Soft, Other (distended) Labs Laboratory Tests Test 06/16/19 12:00 06/16/19 12:01 06/16/19 12:20 06/16/19 16:07 Ionized Calcium 0.88 mmol/L (1.13-1.32) Glucose (Fingerstick) 238 mg/dL (70-99) 185 mg/dL (70-99) Bedside Hematocrit 32 % (37-52) Bedside Venous pH 7.31 (7.32-7.42) Bedside Venous pCO2 53 mmHg (41-51) Bedside Venous pO2 79 mmHg (20-40) Bedside Venous HCO3 27 mmol/L (24-28) Bedside Venous Blood Total CO2 29 mmol/L (21-32) Bedside Venous Blood O2 Saturation 94 % Bedside Venous Blood Base Excess 1 mmol/L (0-3) POC Venous Hemoglobin (Calc) 10.9 g/dL (14-18) Bedside FiO2 20 Bedside Sodium 142 mmol/L (135-145) Bedside Potassium 4.7 mmol/L (3.5-5.0) Glucose Level 255 mg/dL (70-99) Bedside Ionized Calcium ([place]) 0.88 mmol/L (1.13-1.32) Test 06/16/19 18:00 06/16/19 19:48 06/17/19 00:01 06/17/19 00:14 Ionized Calcium 0.92 mmol/L (1.13-1.32) 0.97 mmol/L (1.13-1.32) Glucose (Fingerstick) 204 mg/dL (70-99) 219 mg/dL (70-99) Test 06/17/19 04:44 06/17/19 04:45 06/17/19 08:00 06/17/19 08:49 Glucose (Fingerstick) 248 mg/dL (70-99) 224 mg/dL (70-99) White Blood Count 12.4 x10^3/uL (4.0-11.0) Red Blood Count 3.43 x10^6/uL (4.30-5.70) Hemoglobin 10.3 g/dL (13.0-17.5) Hematocrit 30.8 % (39.0-53.0) Mean Corpuscular Volume 90 fL (79-100) Mean Corpuscular Hemoglobin 30 pg (25-35) Mean Corpuscular Hemoglobin Concent 33 g/dL (31-37) Red Cell Distribution Width 14.6 % (11.5-14.5) Platelet Count 177 x10^3/uL (140-400) Neutrophils (%) (Auto) 88 % (31-73) Lymphocytes (%) (Auto) 4 % (24-48) Monocytes (%) (Auto) 8 % (0-9) Eosinophils (%) (Auto) 0 % (0-3) Basophils (%) (Auto) 0 % (0-3) Neutrophils # (Auto) 11.0 x10^3/uL (1.8-7.7) Lymphocytes # (Auto) 0.4 x10^3/uL (1.0-4.8) Monocytes # (Auto) 1.0 x10^3/uL (0.0-1.1) Eosinophils # (Auto) 0.0 x10^3/uL (0.0-0.7) Basophils # (Auto) 0.0 x10^3/uL (0.0-0.2) Sodium Level 149 mmol/L (136-145) Potassium Level 5.3 mmol/L (3.5-5.1) Chloride Level 111 mmol/L (98-107) Carbon Dioxide Level 28 mmol/L (21-32) Anion Gap 10 (6-14) Blood Urea Nitrogen 45 mg/dL (8-26) Creatinine 1.9 mg/dL (0.7-1.3) Estimated GFR (Cockcroft-Gault) 45.8 Glucose Level 257 mg/dL (70-99) Calcium Level 7.7 mg/dL (8.5-10.1) Ionized Calcium 0.97 mmol/L (1.13-1.32) Phosphorus Level 3.9 mg/dL (2.6-4.7) Magnesium Level 3.2 mg/dL (1.8-2.4) Albumin 2.0 g/dL (3.4-5.0) O2 Saturation 96 % (92-99) Arterial Blood pH 7.33 (7.35-7.45) Arterial Blood pCO2 at Patient Temp 56 mmHg (35-46) Arterial Blood pO2 at Patient Temp 89 mmHg (75-108) Arterial Blood HCO3 29 mmol/L (21-28) Arterial Blood Base Excess 2 mmol/L (-3-3) FiO2 40 Test 06/17/19 10:36 06/17/19 18:34 06/17/19 18:39 06/17/19 20:31 Ionized Calcium 1.05 mmol/L (1.13-1.32) 1.09 mmol/L (1.13-1.32) Glucose (Fingerstick) 258 mg/dL (70-99) 244 mg/dL (70-99) Test 06/17/19 23:30 06/17/19 23:44 06/18/19 04:45 06/18/19 04:50 Ionized Calcium 1.11 mmol/L (1.13-1.32) 1.12 mmol/L (1.13-1.32) Glucose (Fingerstick) 264 mg/dL (70-99) 256 mg/dL (70-99) White Blood Count 16.9 x10^3/uL (4.0-11.0) Red Blood Count 3.29 x10^6/uL (4.30-5.70) Hemoglobin 9.6 g/dL (13.0-17.5) Hematocrit 29.6 % (39.0-53.0) Mean Corpuscular Volume 90 fL (79-100) Mean Corpuscular Hemoglobin 29 pg (25-35) Mean Corpuscular Hemoglobin Concent 32 g/dL (31-37) Red Cell Distribution Width 14.9 % (11.5-14.5) Platelet Count 222 x10^3/uL (140-400) Neutrophils (%) (Auto) 91 % (31-73) Lymphocytes (%) (Auto) 4 % (24-48) Monocytes (%) (Auto) 5 % (0-9) Eosinophils (%) (Auto) 0 % (0-3) Basophils (%) (Auto) 0 % (0-3) Neutrophils # (Auto) 15.3 x10^3/uL (1.8-7.7) Lymphocytes # (Auto) 0.7 x10^3/uL (1.0-4.8) Monocytes # (Auto) 0.9 x10^3/uL (0.0-1.1) Eosinophils # (Auto) 0.0 x10^3/uL (0.0-0.7) Basophils # (Auto) 0.0 x10^3/uL (0.0-0.2) Sodium Level 154 mmol/L (136-145) Potassium Level 5.7 mmol/L (3.5-5.1) Chloride Level 116 mmol/L (98-107) Carbon Dioxide Level 31 mmol/L (21-32) Anion Gap 7 (6-14) Blood Urea Nitrogen 45 mg/dL (8-26) Creatinine 1.7 mg/dL (0.7-1.3) Estimated GFR (Cockcroft-Gault) 52.1 Glucose Level 275 mg/dL (70-99) Calcium Level 8.6 mg/dL (8.5-10.1) Phosphorus Level 2.7 mg/dL (2.6-4.7) Magnesium Level 3.1 mg/dL (1.8-2.4) Albumin 1.9 g/dL (3.4-5.0) Test 06/18/19 08:12 Glucose (Fingerstick) 270 mg/dL (70-99) Laboratory Tests Test 06/17/19 08:49 06/17/19 10:36 06/17/19 18:34 06/17/19 18:39 Glucose (Fingerstick) 224 mg/dL (70-99) 258 mg/dL (70-99) Ionized Calcium 1.05 mmol/L (1.13-1.32) 1.09 mmol/L (1.13-1.32) Test 06/17/19 20:31 06/17/19 23:30 06/17/19 23:44 06/18/19 04:45 Glucose (Fingerstick) 244 mg/dL (70-99) 264 mg/dL (70-99) Ionized Calcium 1.11 mmol/L (1.13-1.32) 1.12 mmol/L (1.13-1.32) White Blood Count 16.9 x10^3/uL (4.0-11.0) Red Blood Count 3.29 x10^6/uL (4.30-5.70) Hemoglobin 9.6 g/dL (13.0-17.5) Hematocrit 29.6 % (39.0-53.0) Mean Corpuscular Volume 90 fL (79-100) Mean Corpuscular Hemoglobin 29 pg (25-35) Mean Corpuscular Hemoglobin Concent 32 g/dL (31-37) Red Cell Distribution Width 14.9 % (11.5-14.5) Platelet Count 222 x10^3/uL (140-400) Neutrophils (%) (Auto) 91 % (31-73) Lymphocytes (%) (Auto) 4 % (24-48) Monocytes (%) (Auto) 5 % (0-9) Eosinophils (%) (Auto) 0 % (0-3) Basophils (%) (Auto) 0 % (0-3) Neutrophils # (Auto) 15.3 x10^3/uL (1.8-7.7) Lymphocytes # (Auto) 0.7 x10^3/uL (1.0-4.8) Monocytes # (Auto) 0.9 x10^3/uL (0.0-1.1) Eosinophils # (Auto) 0.0 x10^3/uL (0.0-0.7) Basophils # (Auto) 0.0 x10^3/uL (0.0-0.2) Sodium Level 154 mmol/L (136-145) Potassium Level 5.7 mmol/L (3.5-5.1) Chloride Level 116 mmol/L (98-107) Carbon Dioxide Level 31 mmol/L (21-32) Anion Gap 7 (6-14) Blood Urea Nitrogen 45 mg/dL (8-26) Creatinine 1.7 mg/dL (0.7-1.3) Estimated GFR (Cockcroft-Gault) 52.1 Glucose Level 275 mg/dL (70-99) Calcium Level 8.6 mg/dL (8.5-10.1) Phosphorus Level 2.7 mg/dL (2.6-4.7) Magnesium Level 3.1 mg/dL (1.8-2.4) Albumin 1.9 g/dL (3.4-5.0) Test 06/18/19 04:50 06/18/19 08:12 Glucose (Fingerstick) 256 mg/dL (70-99) 270 mg/dL (70-99) Problem List Problems Medical Problems: (1) Acute pancreatitis Status: Acute (2) Nausea & vomiting Status: Acute Assessment/Plan severe necrotizing pancreatitis appears to have some improvement in pulm and renal function d/w ID D/w last night at bedside will attempt to avoid necrosectomy (increased morbidity and mortality), but will consider if change in clinical situation. KARLA CALL MD Jun 18, 2019 08:45
--- NOTE | 2019-06-18 08:49 | PDOC ---
SUBJECTIVE ROS Intubated, sedated OBJECTIVE Vital Signs Vital Signs Date Time Temp Pulse Resp B/P (MAP) Pulse Ox O2 Delivery O2 Flow Rate FiO2 06/18/19 06:00 99.7 91 18 128/75 (92) 98 Ventilator 99.7 06/18/19 00:23 3.0 I & 0 Intake and Output 06/18/19 07:00 Intake Total 1677.5 ml Output Total 3310 ml Balance -1632.5 ml IV Total 1677.5 ml Output Urine Total 2860 ml Gastric Drainage Total 450 ml PHYSICAL EXAM Physical Exam GENERAL: Sedated, orally intubated on vent HEENT: OGT/ETT in place NECK: Supple LUNGS: Diminished aeration bases HEART: S1, S2, regular, no murmurs. ABDOMEN: Distended, tight, no guarding to palpation,BS hypoactive : [place] EXTREMITIES: trace edema, no cyanosis SKIN: Warm, dry. 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 Currently on IV calcium , Normal Ca after corrected for Albumin (iCa mildly low) PTH and Phos wnl , Severe necrotizing pancreatitis- GS following- "will attempt to avoid necrosectomy (increased morbidity and mortality), but will consider if change in clinical situation" Sepsis from GI Acute Resp failure - intubated Metabolic acidosis- resolved COMMENT/RELEVANT DATA Meds Current Medications Medications (Trade) Dose Ordered Sig/Jesse Start Time Stop Time Status Last Admin Dose Admin Acetaminophen (Tylenol Supp) 650 mg PRN Q6HRS PRN 06/14/19 20:00 06/17/19 13:09 650 MG Albumin Human 200 ml @ 200 mls/hr 1X PRN PRN 06/14/19 09:00 06/14/19 14:59 DC 06/14/19 09:40 200 MLS/HR Amino Acids/ Electrolytes/ Dextrose 1,000 ml @ 80 mls/hr [id number] 06/12/19 10:15 Amino Acids/ Glycerin/ Electrolytes 1,000 ml @ 80 mls/hr [id number] 06/12/19 10:00 UNV Atropine Sulfate (ATROPINE 0.5mg SYRINGE) 0.5 mg PRN Q5MIN PRN 06/13/19 19:00 Calcium Chloride 2000 mg/Sodium Chloride 120 ml @ 240 mls/hr PRN QID PRN 06/14/19 10:15 06/15/19 09:58 DC 06/15/19 08:32 240 MLS/HR Calcium Gluconate 1000 mg/Sodium Chloride 110 ml @ 220 mls/hr 1X ONCE 06/12/19 19:15 06/12/19 19:44 DC 06/12/19 20:35 220 MLS/HR Calcium Gluconate 5000 mg/Sodium Chloride 250 ml @ 28.782 mls/ hr CONT PRN 06/15/19 09:30 06/18/19 06:12 28.782 MLS/HR Calcium Gluconate 90596 mg/Sodium Chloride 494 ml @ 4.051 mls/ hr CONT PRN 06/15/19 09:30 06/15/19 09:23 DC Chlorhexidine Gluconate (Peridex) 15 ml BID 06/14/19 21:00 06/17/19 20:59 15 ML Dexmedetomidine HCl 400 mcg/ Sodium Chloride 100 ml @ 0 mls/hr CONT PRN 06/13/19 19:00 06/18/19 00:24 10.2 MLS/HR Dextrose (Dextrose 50%-Water Syringe) 12.5 gm PRN Q15MIN PRN 06/14/19 23:30 Etomidate (Amidate) 14 mg 1X ONCE 06/14/19 13:00 06/14/19 13:01 DC 06/14/19 12:59 14 MG Fentanyl Citrate (Fentanyl 2ml Vial) 100 mcg 1X ONCE 06/14/19 13:00 06/14/19 13:01 DC 06/14/19 12:58 100 MCG Furosemide (Lasix) 40 mg 1X ONCE 06/12/19 16:00 06/12/19 16:01 DC 06/12/19 16:13 40 MG Hydralazine HCl (Apresoline Inj) 10 mg PRN Q6HRS PRN 06/11/19 18:15 06/11/19 18:22 10 MG Hydromorphone HCl (Dilaudid) 1 mg PRN Q2HRS PRN 06/11/19 12:00 06/14/19 13:00 2 MG Info (CONTRAST GIVEN -- Rx MONITORING) 1 each PRN DAILY PRN 06/11/19 04:45 06/13/19 04:44 DC Info (PHARMACY MONITORING -- do not chart) 1 each PRN DAILY PRN 06/14/19 09:00 06/14/19 09:06 DC Insulin Human Lispro (HumaLOG) 0-7 UNITS Q4HRS 06/15/19 00:15 06/18/19 08:14 3 UNITS Insulin Human Regular (HumuLIN R VIAL) 10 unit 1X ONCE 06/12/19 16:00 06/12/19 16:01 DC 06/12/19 16:14 10 UNIT Insulin Human Regular 100 unit/ Sodium Chloride 101 ml @ 0 mls/hr CONT PRN 06/13/19 14:15 06/13/19 15:03 7.07 MLS/HR Iohexol (Omnipaque 350 Mg/ml) 100 ml 1X ONCE 06/11/19 04:45 06/11/19 04:46 DC 06/11/19 05:01 100 ML Lidocaine HCl (Buffered Lidocaine 1%) 6 ml 1X ONCE 06/13/19 09:30 06/13/19 09:31 DC 06/13/19 09:23 6 ML Lidocaine HCl (Lidocaine Pf 2% Vial) 5 ml STK-MED ONCE 06/14/19 12:00 06/17/19 10:37 DC Linezolid/Dextrose 300 ml @ 300 mls/hr Q12HR 06/14/19 21:00 06/17/19 20:59 300 MLS/HR Lorazepam (Ativan Inj) 1 mg PRN Q6HRS PRN 06/11/19 18:15 06/14/19 13:00 2 MG Magnesium Sulfate 50 ml @ 25 mls/hr PRN DAILY PRN 06/14/19 10:30 Meropenem 500 mg/ Sodium Chloride 50 ml @ 100 mls/hr Q6HRS 06/18/19 07:30 06/18/19 08:08 100 MLS/HR Midazolam HCl (Versed) 5 mg 1X ONCE 06/14/19 13:00 06/14/19 13:01 DC 06/14/19 12:59 5 MG Midazolam HCl 50 mg/Sodium Chloride 50 ml @ 0 mls/hr CONT PRN 06/14/19 12:45 06/17/19 23:00 5 MLS/HR Morphine Sulfate (Morphine Sulfate) 4 mg PRN Q2HR PRN 06/11/19 05:45 06/11/19 11:54 DC 06/11/19 07:37 4 MG Norepinephrine Bitartrate 8 mg/ Dextrose 258 ml @ 20.027 mls/ hr CONT PRN 06/14/19 10:30 06/14/19 10:31 20.027 MLS/HR Nystatin (Nystop) 1 devorah PRN QID PRN 06/11/19 23:15 06/11/19 23:19 1 DEVORAH Ondansetron HCl (Zofran) 4 mg PRN Q8HRS PRN 06/11/19 05:45 06/12/19 05:44 DC 06/12/19 03:29 4 MG Pantoprazole Sodium (PROTONIX VIAL for IV PUSH) 40 mg [id number] 06/13/19 21:00 06/18/19 06:12 40 MG Piperacillin Sod/ Tazobactam Sod (Zosyn Per Pharmacy) 1 each PRN DAILY PRN 06/12/19 13:15 06/12/19 19:16 DC Piperacillin Sod/ Tazobactam Sod 2.25 gm/Sodium Chloride 50 ml @ 100 mls/hr Q6HRS 06/12/19 13:30 06/12/19 19:15 DC 06/12/19 13:48 100 MLS/HR Potassium Chloride/Water 100 ml @ 100 mls/hr Q1H 06/11/19 06:00 06/11/19 07:59 DC 06/11/19 08:41 100 MLS/HR Prochlorperazine Edisylate (Compazine) 10 mg PRN Q8HRS PRN 06/11/19 12:00 06/12/19 14:59 10 MG Sodium Bicarbonate 50 meq/Sodium Chloride 1,050 ml @ 150 mls/hr Q7H 06/12/19 11:00 06/13/19 14:48 DC 06/13/19 04:16 150 MLS/HR Sodium Bicarbonate (Sodium Bicarb Adult 8.4% Syr) 50 meq 1X ONCE 06/12/19 16:00 06/12/19 16:01 DC 06/12/19 16:12 50 MEQ Sodium Chloride 1,000 ml @ 400 mls/hr Q2H30M PRN 06/14/19 08:55 06/14/19 20:54 DC Succinylcholine Chloride (Anectine) 200 mg 1X ONCE 06/14/19 13:00 06/14/19 13:01 DC 06/14/19 12:59 200 MG Lab Laboratory Tests Test 06/17/19 08:49 06/17/19 10:36 06/17/19 18:34 06/17/19 18:39 Glucose (Fingerstick) 224 mg/dL (70-99) 258 mg/dL (70-99) Ionized Calcium 1.05 mmol/L (1.13-1.32) 1.09 mmol/L (1.13-1.32) Test 06/17/19 20:31 06/17/19 23:30 06/17/19 23:44 06/18/19 04:45 Glucose (Fingerstick) 244 mg/dL (70-99) 264 mg/dL (70-99) Ionized Calcium 1.11 mmol/L (1.13-1.32) 1.12 mmol/L (1.13-1.32) White Blood Count 16.9 x10^3/uL (4.0-11.0) Red Blood Count 3.29 x10^6/uL (4.30-5.70) Hemoglobin 9.6 g/dL (13.0-17.5) Hematocrit 29.6 % (39.0-53.0) Mean Corpuscular Volume 90 fL (79-100) Mean Corpuscular Hemoglobin 29 pg (25-35) Mean Corpuscular Hemoglobin Concent 32 g/dL (31-37) Red Cell Distribution Width 14.9 % (11.5-14.5) Platelet Count 222 x10^3/uL (140-400) Neutrophils (%) (Auto) 91 % (31-73) Lymphocytes (%) (Auto) 4 % (24-48) Monocytes (%) (Auto) 5 % (0-9) Eosinophils (%) (Auto) 0 % (0-3) Basophils (%) (Auto) 0 % (0-3) Neutrophils # (Auto) 15.3 x10^3/uL (1.8-7.7) Lymphocytes # (Auto) 0.7 x10^3/uL (1.0-4.8) Monocytes # (Auto) 0.9 x10^3/uL (0.0-1.1) Eosinophils # (Auto) 0.0 x10^3/uL (0.0-0.7) Basophils # (Auto) 0.0 x10^3/uL (0.0-0.2) Sodium Level 154 mmol/L (136-145) Potassium Level 5.7 mmol/L (3.5-5.1) Chloride Level 116 mmol/L (98-107) Carbon Dioxide Level 31 mmol/L (21-32) Anion Gap 7 (6-14) Blood Urea Nitrogen 45 mg/dL (8-26) Creatinine 1.7 mg/dL (0.7-1.3) Estimated GFR (Cockcroft-Gault) 52.1 Glucose Level 275 mg/dL (70-99) Calcium Level 8.6 mg/dL (8.5-10.1) Phosphorus Level 2.7 mg/dL (2.6-4.7) Magnesium Level 3.1 mg/dL (1.8-2.4) Albumin 1.9 g/dL (3.4-5.0) Test 06/18/19 04:50 06/18/19 08:12 Glucose (Fingerstick) 256 mg/dL (70-99) 270 mg/dL (70-99) Results All relevant outside records, renal labs, imaging studies, telemetry/EKG's were reviewed. RANDALL GALVIN MD Jun 18, 2019 08:49
[2019-06-18 08:50] LABS: BASE EXCESS ABG 1 mmol/L (-3-3); HCO3 ABG 26 mmol/L (21-28); PCO2 ABG 44 mmHg (35-46); PO2 ABG 87 mmHg (75-108); SAT O2 ABG 96 % (92-99)
[2019-06-18 08:52] LABS: FIO2 ABG 40
[2019-06-18] MEDS: CHLORHEXIDINE 0.12% 15 ML MOUTHWASH. MM SCH ×2 (09:00→21:09)
[2019-06-18] MEDS: hydrALAZINE 20 MG/ML VIAL. IVP PRN (09:32)
--- NOTE | 2019-06-18 09:37 | PDOC ---
PULMONARY PROGRESS NOTES Subjective INTUBATED SEC TO ENCEPHALOPATHY AND DECREASE SAT AC MODE/SEDATED Vitals Vital Signs Date Time Temp Pulse Resp B/P (MAP) Pulse Ox O2 Delivery O2 Flow Rate FiO2 06/18/19 09:32 130 212/124 06/18/19 06:00 99.7 18 98 Ventilator 99.7 06/18/19 00:23 3.0 Lungs: Clear Cardiovascular: S1, S2 Abdomen: Other ( DISTENDED) Extremities: No Edema Skin: Warm Labs Laboratory Tests Test 06/16/19 12:00 06/16/19 12:01 06/16/19 12:20 06/16/19 16:07 Ionized Calcium 0.88 mmol/L (1.13-1.32) Glucose (Fingerstick) 238 mg/dL (70-99) 185 mg/dL (70-99) Bedside Hematocrit 32 % (37-52) Bedside Venous pH 7.31 (7.32-7.42) Bedside Venous pCO2 53 mmHg (41-51) Bedside Venous pO2 79 mmHg (20-40) Bedside Venous HCO3 27 mmol/L (24-28) Bedside Venous Blood Total CO2 29 mmol/L (21-32) Bedside Venous Blood O2 Saturation 94 % Bedside Venous Blood Base Excess 1 mmol/L (0-3) POC Venous Hemoglobin (Calc) 10.9 g/dL (14-18) Bedside FiO2 20 Bedside Sodium 142 mmol/L (135-145) Bedside Potassium 4.7 mmol/L (3.5-5.0) Glucose Level 255 mg/dL (70-99) Bedside Ionized Calcium ([place]) 0.88 mmol/L (1.13-1.32) Test 06/16/19 18:00 06/16/19 19:48 06/17/19 00:01 06/17/19 00:14 Ionized Calcium 0.92 mmol/L (1.13-1.32) 0.97 mmol/L (1.13-1.32) Glucose (Fingerstick) 204 mg/dL (70-99) 219 mg/dL (70-99) Test 06/17/19 04:44 06/17/19 04:45 06/17/19 08:00 06/17/19 08:49 Glucose (Fingerstick) 248 mg/dL (70-99) 224 mg/dL (70-99) White Blood Count 12.4 x10^3/uL (4.0-11.0) Red Blood Count 3.43 x10^6/uL (4.30-5.70) Hemoglobin 10.3 g/dL (13.0-17.5) Hematocrit 30.8 % (39.0-53.0) Mean Corpuscular Volume 90 fL (79-100) Mean Corpuscular Hemoglobin 30 pg (25-35) Mean Corpuscular Hemoglobin Concent 33 g/dL (31-37) Red Cell Distribution Width 14.6 % (11.5-14.5) Platelet Count 177 x10^3/uL (140-400) Neutrophils (%) (Auto) 88 % (31-73) Lymphocytes (%) (Auto) 4 % (24-48) Monocytes (%) (Auto) 8 % (0-9) Eosinophils (%) (Auto) 0 % (0-3) Basophils (%) (Auto) 0 % (0-3) Neutrophils # (Auto) 11.0 x10^3/uL (1.8-7.7) Lymphocytes # (Auto) 0.4 x10^3/uL (1.0-4.8) Monocytes # (Auto) 1.0 x10^3/uL (0.0-1.1) Eosinophils # (Auto) 0.0 x10^3/uL (0.0-0.7) Basophils # (Auto) 0.0 x10^3/uL (0.0-0.2) Sodium Level 149 mmol/L (136-145) Potassium Level 5.3 mmol/L (3.5-5.1) Chloride Level 111 mmol/L (98-107) Carbon Dioxide Level 28 mmol/L (21-32) Anion Gap 10 (6-14) Blood Urea Nitrogen 45 mg/dL (8-26) Creatinine 1.9 mg/dL (0.7-1.3) Estimated GFR (Cockcroft-Gault) 45.8 Glucose Level 257 mg/dL (70-99) Calcium Level 7.7 mg/dL (8.5-10.1) Ionized Calcium 0.97 mmol/L (1.13-1.32) Phosphorus Level 3.9 mg/dL (2.6-4.7) Magnesium Level 3.2 mg/dL (1.8-2.4) Albumin 2.0 g/dL (3.4-5.0) O2 Saturation 96 % (92-99) Arterial Blood pH 7.33 (7.35-7.45) Arterial Blood pCO2 at Patient Temp 56 mmHg (35-46) Arterial Blood pO2 at Patient Temp 89 mmHg (75-108) Arterial Blood HCO3 29 mmol/L (21-28) Arterial Blood Base Excess 2 mmol/L (-3-3) FiO2 40 Test 06/17/19 10:36 06/17/19 18:34 06/17/19 18:39 06/17/19 20:31 Ionized Calcium 1.05 mmol/L (1.13-1.32) 1.09 mmol/L (1.13-1.32) Glucose (Fingerstick) 258 mg/dL (70-99) 244 mg/dL (70-99) Test 06/17/19 23:30 06/17/19 23:44 06/18/19 04:45 06/18/19 04:50 Ionized Calcium 1.11 mmol/L (1.13-1.32) 1.12 mmol/L (1.13-1.32) Glucose (Fingerstick) 264 mg/dL (70-99) 256 mg/dL (70-99) White Blood Count 16.9 x10^3/uL (4.0-11.0) Red Blood Count 3.29 x10^6/uL (4.30-5.70) Hemoglobin 9.6 g/dL (13.0-17.5) Hematocrit 29.6 % (39.0-53.0) Mean Corpuscular Volume 90 fL (79-100) Mean Corpuscular Hemoglobin 29 pg (25-35) Mean Corpuscular Hemoglobin Concent 32 g/dL (31-37) Red Cell Distribution Width 14.9 % (11.5-14.5) Platelet Count 222 x10^3/uL (140-400) Neutrophils (%) (Auto) 91 % (31-73) Lymphocytes (%) (Auto) 4 % (24-48) Monocytes (%) (Auto) 5 % (0-9) Eosinophils (%) (Auto) 0 % (0-3) Basophils (%) (Auto) 0 % (0-3) Neutrophils # (Auto) 15.3 x10^3/uL (1.8-7.7) Lymphocytes # (Auto) 0.7 x10^3/uL (1.0-4.8) Monocytes # (Auto) 0.9 x10^3/uL (0.0-1.1) Eosinophils # (Auto) 0.0 x10^3/uL (0.0-0.7) Basophils # (Auto) 0.0 x10^3/uL (0.0-0.2) Sodium Level 154 mmol/L (136-145) Potassium Level 5.7 mmol/L (3.5-5.1) Chloride Level 116 mmol/L (98-107) Carbon Dioxide Level 31 mmol/L (21-32) Anion Gap 7 (6-14) Blood Urea Nitrogen 45 mg/dL (8-26) Creatinine 1.7 mg/dL (0.7-1.3) Estimated GFR (Cockcroft-Gault) 52.1 Glucose Level 275 mg/dL (70-99) Calcium Level 8.6 mg/dL (8.5-10.1) Phosphorus Level 2.7 mg/dL (2.6-4.7) Magnesium Level 3.1 mg/dL (1.8-2.4) Albumin 1.9 g/dL (3.4-5.0) Test 06/18/19 08:12 06/18/19 08:30 Glucose (Fingerstick) 270 mg/dL (70-99) O2 Saturation 96 % (92-99) Arterial Blood pH 7.40 (7.35-7.45) Arterial Blood pCO2 at Patient Temp 44 mmHg (35-46) Arterial Blood pO2 at Patient Temp 87 mmHg (75-108) Arterial Blood HCO3 26 mmol/L (21-28) Arterial Blood Base Excess 1 mmol/L (-3-3) FiO2 40 Laboratory Tests Test 06/17/19 10:36 06/17/19 18:34 06/17/19 18:39 06/17/19 20:31 Ionized Calcium 1.05 mmol/L (1.13-1.32) 1.09 mmol/L (1.13-1.32) Glucose (Fingerstick) 258 mg/dL (70-99) 244 mg/dL (70-99) Test 06/17/19 23:30 06/17/19 23:44 06/18/19 04:45 06/18/19 04:50 Ionized Calcium 1.11 mmol/L (1.13-1.32) 1.12 mmol/L (1.13-1.32) Glucose (Fingerstick) 264 mg/dL (70-99) 256 mg/dL (70-99) White Blood Count 16.9 x10^3/uL (4.0-11.0) Red Blood Count 3.29 x10^6/uL (4.30-5.70) Hemoglobin 9.6 g/dL (13.0-17.5) Hematocrit 29.6 % (39.0-53.0) Mean Corpuscular Volume 90 fL (79-100) Mean Corpuscular Hemoglobin 29 pg (25-35) Mean Corpuscular Hemoglobin Concent 32 g/dL (31-37) Red Cell Distribution Width 14.9 % (11.5-14.5) Platelet Count 222 x10^3/uL (140-400) Neutrophils (%) (Auto) 91 % (31-73) Lymphocytes (%) (Auto) 4 % (24-48) Monocytes (%) (Auto) 5 % (0-9) Eosinophils (%) (Auto) 0 % (0-3) Basophils (%) (Auto) 0 % (0-3) Neutrophils # (Auto) 15.3 x10^3/uL (1.8-7.7) Lymphocytes # (Auto) 0.7 x10^3/uL (1.0-4.8) Monocytes # (Auto) 0.9 x10^3/uL (0.0-1.1) Eosinophils # (Auto) 0.0 x10^3/uL (0.0-0.7) Basophils # (Auto) 0.0 x10^3/uL (0.0-0.2) Sodium Level 154 mmol/L (136-145) Potassium Level 5.7 mmol/L (3.5-5.1) Chloride Level 116 mmol/L (98-107) Carbon Dioxide Level 31 mmol/L (21-32) Anion Gap 7 (6-14) Blood Urea Nitrogen 45 mg/dL (8-26) Creatinine 1.7 mg/dL (0.7-1.3) Estimated GFR (Cockcroft-Gault) 52.1 Glucose Level 275 mg/dL (70-99) Calcium Level 8.6 mg/dL (8.5-10.1) Phosphorus Level 2.7 mg/dL (2.6-4.7) Magnesium Level 3.1 mg/dL (1.8-2.4) Albumin 1.9 g/dL (3.4-5.0) Test 06/18/19 08:12 06/18/19 08:30 Glucose (Fingerstick) 270 mg/dL (70-99) O2 Saturation 96 % (92-99) Arterial Blood pH 7.40 (7.35-7.45) Arterial Blood pCO2 at Patient Temp 44 mmHg (35-46) Arterial Blood pO2 at Patient Temp 87 mmHg (75-108) Arterial Blood HCO3 26 mmol/L (21-28) Arterial Blood Base Excess 1 mmol/L (-3-3) FiO2 40 Medications Active Scripts Medications Dose Route/Sig Max Daily Dose Days Date Category Comments cxr 06/17 reviewed Left basal atelectasis Impression . IMPRESSION: 1. Acute hypoxemic respiratory failure, multifactorial. 2. Acute gallstone pancreatitis./ Necrosis 3. Acute kidney failure. improving 4. Metabolic toxic encephalopathy. 5. Hyperkalemia.corrected 6. Metabolic / respiratory acidosis 7. Hypocalcemia. 8. POSSIBLE ABD COMPARTMENT SYNDROME PRESSURE 20 9. HEP B S POSITIVE Plan . SPOKE WITH DR JARA 06/16 AT [facility] / CT ABDOMEN FINDINGS DISCUSSED. I AGREE WITH CONSERVATION APPROACH AT PRESENT AND HOLDING ON SURGERY. HIGH RISK WITH SURGERY WILL NEED TO CLOSELY MONITOR CLINICALLY ABG NOTED / AC mode SUPPORT WITH ANTI BX IV FLUID PRN REPLACE CA NEEDED OVERALL PROGNOSIS IS GUARDED AT THIS TIME LIPASE IMPROVING D/W RN/RT TAYA PEREIRA MD Jun 18, 2019 09:37
--- NOTE | 2019-06-18 09:40 | NUR ---
Patient moving around in bed and unable to get him comfortable therefore Fentanyl increased and Dr. Salinas notified.
[2019-06-18] MEDS: MIDAZOLAM HCL 50 MG in IV NORMAL SALINE 50ML 50 ML IV PRN ×3 (10:22→21:21)
--- NOTE | 2019-06-18 10:37 | PDOC ---
PROGRESS NOTES History of Present Illness History of Present Illness ASSESSMENT AND PLAN: Acute hypoxemic respiratory failure, Severe pancreatitis. , GALLSTONE pancreatitis hypoattenuation of the pancreas, concerning for necrosis although evaluation degraded without IV contrast. 06/16 Severe biliary pancreatitis. Resp failure Renal failure MORBID OBESITY ACUTE HYPOXIC RESP FAILURE// ARDS HYPERKALEMIA hypocalcemia per nephrology replacement TRANSAMINITIS LACTIC ACIDOSIS SEPSIS VOLUME OVERLOAD HYPERGLYCEMIA, UNCONTROLLED HYPOCALCEMIA, REPLACE PER RENAL admitted consult GI, IV fluids, p.r.n. antiemetics, home medications, deep venous thrombosis prophylaxis. Full code. nephrology consult gen surgery consult GI CONSULT O2 SUPPORT lactic acid with reflex iv zosyn per pharmacy ID CONSULT BLOOD CULT BICARB DRIP prn temp dialysis catheter PULM CONSULT INSULIN DRIP PRN HOLD SURGERY, HIGH RISK orally intubated on vent, mitts 06/17 sedated on vent D/W RN // family in room PROGNOSIS: Guarded. 36 MIN CC TIME Vitals Vitals Vital Signs Date Time Temp Pulse Resp B/P (MAP) Pulse Ox O2 Delivery O2 Flow Rate FiO2 06/18/19 10:15 98 Ventilator 06/18/19 10:00 100.4 124 18 133/69 (90) 100.4 06/18/19 00:23 3.0 Physical Exam Physical Exam GENERAL: Sedated, orally intubated on vent, mitts HEENT: Pupils equal, small. OGT/ETT in place NECK: Supple no JVD LUNGS: Diminished aeration bases HEART: S1, S2, regular, no murmurs. ABDOMEN: Distended, tight but some soft, no guarding to palpation, BS hypoactive : [place] EXTREMITIES: trace edema, no cyanosis. SCDs bilaterally SKIN: Warm, dry. 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 [employer]: Sedated RIJ/HD catheter (06/13) clean General: No acute distress Heart: Regular rate, Normal S1 Lungs: Clear Abdomen: Soft, Other (distended) Extremities: No clubbing, No cyanosis Skin: No breakdown Labs LABS Laboratory Tests Test 06/17/19 18:34 06/17/19 18:39 06/17/19 20:31 06/17/19 23:30 Glucose (Fingerstick) 258 mg/dL (70-99) 244 mg/dL (70-99) Ionized Calcium 1.09 mmol/L (1.13-1.32) 1.11 mmol/L (1.13-1.32) Test 06/17/19 23:44 06/18/19 04:45 06/18/19 04:50 06/18/19 08:12 Glucose (Fingerstick) 264 mg/dL (70-99) 256 mg/dL (70-99) 270 mg/dL (70-99) White Blood Count 16.9 x10^3/uL (4.0-11.0) Red Blood Count 3.29 x10^6/uL (4.30-5.70) Hemoglobin 9.6 g/dL (13.0-17.5) Hematocrit 29.6 % (39.0-53.0) Mean Corpuscular Volume 90 fL (79-100) Mean Corpuscular Hemoglobin 29 pg (25-35) Mean Corpuscular Hemoglobin Concent 32 g/dL (31-37) Red Cell Distribution Width 14.9 % (11.5-14.5) Platelet Count 222 x10^3/uL (140-400) Neutrophils (%) (Auto) 91 % (31-73) Lymphocytes (%) (Auto) 4 % (24-48) Monocytes (%) (Auto) 5 % (0-9) Eosinophils (%) (Auto) 0 % (0-3) Basophils (%) (Auto) 0 % (0-3) Neutrophils # (Auto) 15.3 x10^3/uL (1.8-7.7) Lymphocytes # (Auto) 0.7 x10^3/uL (1.0-4.8) Monocytes # (Auto) 0.9 x10^3/uL (0.0-1.1) Eosinophils # (Auto) 0.0 x10^3/uL (0.0-0.7) Basophils # (Auto) 0.0 x10^3/uL (0.0-0.2) Sodium Level 154 mmol/L (136-145) Potassium Level 5.7 mmol/L (3.5-5.1) Chloride Level 116 mmol/L (98-107) Carbon Dioxide Level 31 mmol/L (21-32) Anion Gap 7 (6-14) Blood Urea Nitrogen 45 mg/dL (8-26) Creatinine 1.7 mg/dL (0.7-1.3) Estimated GFR (Cockcroft-Gault) 52.1 Glucose Level 275 mg/dL (70-99) Calcium Level 8.6 mg/dL (8.5-10.1) Ionized Calcium 1.12 mmol/L (1.13-1.32) Phosphorus Level 2.7 mg/dL (2.6-4.7) Magnesium Level 3.1 mg/dL (1.8-2.4) Albumin 1.9 g/dL (3.4-5.0) Test 06/18/19 08:30 O2 Saturation 96 % (92-99) Arterial Blood pH 7.40 (7.35-7.45) Arterial Blood pCO2 at Patient Temp 44 mmHg (35-46) Arterial Blood pO2 at Patient Temp 87 mmHg (75-108) Arterial Blood HCO3 26 mmol/L (21-28) Arterial Blood Base Excess 1 mmol/L (-3-3) FiO2 40 Assessment and Plan Assessmemt and Plan Problems Medical Problems: (1) Acute pancreatitis Status: Acute (2) Nausea & vomiting Status: Acute Comment Review of Relevant I have reviewed the following items alexandra (where applicable) has been applied. Labs Laboratory Tests Test 06/16/19 12:00 06/16/19 12:01 06/16/19 12:20 06/16/19 16:07 Ionized Calcium 0.88 mmol/L (1.13-1.32) Glucose (Fingerstick) 238 mg/dL (70-99) 185 mg/dL (70-99) Bedside Hematocrit 32 % (37-52) Bedside Venous pH 7.31 (7.32-7.42) Bedside Venous pCO2 53 mmHg (41-51) Bedside Venous pO2 79 mmHg (20-40) Bedside Venous HCO3 27 mmol/L (24-28) Bedside Venous Blood Total CO2 29 mmol/L (21-32) Bedside Venous Blood O2 Saturation 94 % Bedside Venous Blood Base Excess 1 mmol/L (0-3) POC Venous Hemoglobin (Calc) 10.9 g/dL (14-18) Bedside FiO2 20 Bedside Sodium 142 mmol/L (135-145) Bedside Potassium 4.7 mmol/L (3.5-5.0) Glucose Level 255 mg/dL (70-99) Bedside Ionized Calcium ([place]) 0.88 mmol/L (1.13-1.32) Test 06/16/19 18:00 06/16/19 19:48 06/17/19 00:01 06/17/19 00:14 Ionized Calcium 0.92 mmol/L (1.13-1.32) 0.97 mmol/L (1.13-1.32) Glucose (Fingerstick) 204 mg/dL (70-99) 219 mg/dL (70-99) Test 06/17/19 04:44 06/17/19 04:45 06/17/19 08:00 06/17/19 08:49 Glucose (Fingerstick) 248 mg/dL (70-99) 224 mg/dL (70-99) White Blood Count 12.4 x10^3/uL (4.0-11.0) Red Blood Count 3.43 x10^6/uL (4.30-5.70) Hemoglobin 10.3 g/dL (13.0-17.5) Hematocrit 30.8 % (39.0-53.0) Mean Corpuscular Volume 90 fL (79-100) Mean Corpuscular Hemoglobin 30 pg (25-35) Mean Corpuscular Hemoglobin Concent 33 g/dL (31-37) Red Cell Distribution Width 14.6 % (11.5-14.5) Platelet Count 177 x10^3/uL (140-400) Neutrophils (%) (Auto) 88 % (31-73) Lymphocytes (%) (Auto) 4 % (24-48) Monocytes (%) (Auto) 8 % (0-9) Eosinophils (%) (Auto) 0 % (0-3) Basophils (%) (Auto) 0 % (0-3) Neutrophils # (Auto) 11.0 x10^3/uL (1.8-7.7) Lymphocytes # (Auto) 0.4 x10^3/uL (1.0-4.8) Monocytes # (Auto) 1.0 x10^3/uL (0.0-1.1) Eosinophils # (Auto) 0.0 x10^3/uL (0.0-0.7) Basophils # (Auto) 0.0 x10^3/uL (0.0-0.2) Sodium Level 149 mmol/L (136-145) Potassium Level 5.3 mmol/L (3.5-5.1) Chloride Level 111 mmol/L (98-107) Carbon Dioxide Level 28 mmol/L (21-32) Anion Gap 10 (6-14) Blood Urea Nitrogen 45 mg/dL (8-26) Creatinine 1.9 mg/dL (0.7-1.3) Estimated GFR (Cockcroft-Gault) 45.8 Glucose Level 257 mg/dL (70-99) Calcium Level 7.7 mg/dL (8.5-10.1) Ionized Calcium 0.97 mmol/L (1.13-1.32) Phosphorus Level 3.9 mg/dL (2.6-4.7) Magnesium Level 3.2 mg/dL (1.8-2.4) Albumin 2.0 g/dL (3.4-5.0) O2 Saturation 96 % (92-99) Arterial Blood pH 7.33 (7.35-7.45) Arterial Blood pCO2 at Patient Temp 56 mmHg (35-46) Arterial Blood pO2 at Patient Temp 89 mmHg (75-108) Arterial Blood HCO3 29 mmol/L (21-28) Arterial Blood Base Excess 2 mmol/L (-3-3) FiO2 40 Test 06/17/19 10:36 06/17/19 18:34 06/17/19 18:39 06/17/19 20:31 Ionized Calcium 1.05 mmol/L (1.13-1.32) 1.09 mmol/L (1.13-1.32) Glucose (Fingerstick) 258 mg/dL (70-99) 244 mg/dL (70-99) Test 06/17/19 23:30 06/17/19 23:44 06/18/19 04:45 06/18/19 04:50 Ionized Calcium 1.11 mmol/L (1.13-1.32) 1.12 mmol/L (1.13-1.32) Glucose (Fingerstick) 264 mg/dL (70-99) 256 mg/dL (70-99) White Blood Count 16.9 x10^3/uL (4.0-11.0) Red Blood Count 3.29 x10^6/uL (4.30-5.70) Hemoglobin 9.6 g/dL (13.0-17.5) Hematocrit 29.6 % (39.0-53.0) Mean Corpuscular Volume 90 fL (79-100) Mean Corpuscular Hemoglobin 29 pg (25-35) Mean Corpuscular Hemoglobin Concent 32 g/dL (31-37) Red Cell Distribution Width 14.9 % (11.5-14.5) Platelet Count 222 x10^3/uL (140-400) Neutrophils (%) (Auto) 91 % (31-73) Lymphocytes (%) (Auto) 4 % (24-48) Monocytes (%) (Auto) 5 % (0-9) Eosinophils (%) (Auto) 0 % (0-3) Basophils (%) (Auto) 0 % (0-3) Neutrophils # (Auto) 15.3 x10^3/uL (1.8-7.7) Lymphocytes # (Auto) 0.7 x10^3/uL (1.0-4.8) Monocytes # (Auto) 0.9 x10^3/uL (0.0-1.1) Eosinophils # (Auto) 0.0 x10^3/uL (0.0-0.7) Basophils # (Auto) 0.0 x10^3/uL (0.0-0.2) Sodium Level 154 mmol/L (136-145) Potassium Level 5.7 mmol/L (3.5-5.1) Chloride Level 116 mmol/L (98-107) Carbon Dioxide Level 31 mmol/L (21-32) Anion Gap 7 (6-14) Blood Urea Nitrogen 45 mg/dL (8-26) Creatinine 1.7 mg/dL (0.7-1.3) Estimated GFR (Cockcroft-Gault) 52.1 Glucose Level 275 mg/dL (70-99) Calcium Level 8.6 mg/dL (8.5-10.1) Phosphorus Level 2.7 mg/dL (2.6-4.7) Magnesium Level 3.1 mg/dL (1.8-2.4) Albumin 1.9 g/dL (3.4-5.0) Test 06/18/19 08:12 06/18/19 08:30 Glucose (Fingerstick) 270 mg/dL (70-99) O2 Saturation 96 % (92-99) Arterial Blood pH 7.40 (7.35-7.45) Arterial Blood pCO2 at Patient Temp 44 mmHg (35-46) Arterial Blood pO2 at Patient Temp 87 mmHg (75-108) Arterial Blood HCO3 26 mmol/L (21-28) Arterial Blood Base Excess 1 mmol/L (-3-3) FiO2 40 Laboratory Tests Test 06/17/19 18:34 06/17/19 18:39 06/17/19 20:31 06/17/19 23:30 Glucose (Fingerstick) 258 mg/dL (70-99) 244 mg/dL (70-99) Ionized Calcium 1.09 mmol/L (1.13-1.32) 1.11 mmol/L (1.13-1.32) Test 06/17/19 23:44 06/18/19 04:45 06/18/19 04:50 06/18/19 08:12 Glucose (Fingerstick) 264 mg/dL (70-99) 256 mg/dL (70-99) 270 mg/dL (70-99) White Blood Count 16.9 x10^3/uL (4.0-11.0) Red Blood Count 3.29 x10^6/uL (4.30-5.70) Hemoglobin 9.6 g/dL (13.0-17.5) Hematocrit 29.6 % (39.0-53.0) Mean Corpuscular Volume 90 fL (79-100) Mean Corpuscular Hemoglobin 29 pg (25-35) Mean Corpuscular Hemoglobin Concent 32 g/dL (31-37) Red Cell Distribution Width 14.9 % (11.5-14.5) Platelet Count 222 x10^3/uL (140-400) Neutrophils (%) (Auto) 91 % (31-73) Lymphocytes (%) (Auto) 4 % (24-48) Monocytes (%) (Auto) 5 % (0-9) Eosinophils (%) (Auto) 0 % (0-3) Basophils (%) (Auto) 0 % (0-3) Neutrophils # (Auto) 15.3 x10^3/uL (1.8-7.7) Lymphocytes # (Auto) 0.7 x10^3/uL (1.0-4.8) Monocytes # (Auto) 0.9 x10^3/uL (0.0-1.1) Eosinophils # (Auto) 0.0 x10^3/uL (0.0-0.7) Basophils # (Auto) 0.0 x10^3/uL (0.0-0.2) Sodium Level 154 mmol/L (136-145) Potassium Level 5.7 mmol/L (3.5-5.1) Chloride Level 116 mmol/L (98-107) Carbon Dioxide Level 31 mmol/L (21-32) Anion Gap 7 (6-14) Blood Urea Nitrogen 45 mg/dL (8-26) Creatinine 1.7 mg/dL (0.7-1.3) Estimated GFR (Cockcroft-Gault) 52.1 Glucose Level 275 mg/dL (70-99) Calcium Level 8.6 mg/dL (8.5-10.1) Ionized Calcium 1.12 mmol/L (1.13-1.32) Phosphorus Level 2.7 mg/dL (2.6-4.7) Magnesium Level 3.1 mg/dL (1.8-2.4) Albumin 1.9 g/dL (3.4-5.0) Test 06/18/19 08:30 O2 Saturation 96 % (92-99) Arterial Blood pH 7.40 (7.35-7.45) Arterial Blood pCO2 at Patient Temp 44 mmHg (35-46) Arterial Blood pO2 at Patient Temp 87 mmHg (75-108) Arterial Blood HCO3 26 mmol/L (21-28) Arterial Blood Base Excess 1 mmol/L (-3-3) FiO2 40 Microbiology 06/14/19 Blood Culture - Preliminary, Resulted NO GROWTH AFTER 3 DAYS Medications Current Medications Morphine Sulfate (Morphine Sulfate) 4 mg PRN Q15MIN PRN IV/SQ PAIN GREATER THAN 3/10 Last administered on 06/11/19at 04:58; Start 06/11/19 at 04:30; Stop 06/11/19 at 16:47; Status DC Sodium Chloride 1,000 ml @ 1,000 mls/hr Q1H IV Last administered on 06/11/19at 04:34; Start 06/11/19 at 04:30; Stop 06/11/19 at 05:29; Status DC Ondansetron HCl (Zofran) 4 mg 1X ONCE IV Last administered on 06/11/19at 04:33; Start 06/11/19 at 04:30; Stop 06/11/19 at 04:33; Status DC Iohexol (Omnipaque 350 Mg/ml) 100 ml 1X ONCE IV Last administered on 06/11/19at 05:01; Start 06/11/19 at 04:45; Stop 06/11/19 at 04:46; Status DC Info (CONTRAST GIVEN -- Rx MONITORING) 1 each PRN DAILY PRN MC SEE COMMENTS; Start 06/11/19 at 04:45; Stop 06/13/19 at 04:44; Status DC Fentanyl Citrate (Fentanyl 2ml Vial) 100 mcg STK-MED ONCE .ROUTE ; Start 06/11/19 at 04:42; Stop 06/11/19 at 04:42; Status DC Fentanyl Citrate (Fentanyl 2ml Vial) 50 mcg 1X ONCE IVP Last administered on 06/11/19at 04:45; Start 06/11/19 at 05:00; Stop 06/11/19 at 05:01; Status DC Ondansetron HCl (Zofran) 4 mg PRN Q8HRS PRN IV NAUSEA/VOMITING Last administered on 06/12/19at 03:29; Start 06/11/19 at 05:45; Stop 06/12/19 at 05:44; Status DC Morphine Sulfate (Morphine Sulfate) 4 mg PRN Q2HR PRN IV PAIN Last administered on 06/11/19at 07:37; Start 06/11/19 at 05:45; Stop 06/11/19 at 11:54; Status DC Sodium Chloride 1,000 ml @ 150 mls/hr Q6H40M IV Last administered on 06/12/19at 03:28; Start 06/11/19 at 05:45; Stop 06/12/19 at 11:01; Status DC Hydromorphone HCl (Dilaudid) 0.5 mg PRN Q3HRS PRN IV PAIN Last administered on 06/11/19at 08:38; Start 06/11/19 at 05:45; Stop 06/11/19 at 09:12; Status DC Potassium Chloride/Water 100 ml @ 100 mls/hr Q1H IV Last administered on 06/11/19at 08:41; Start 06/11/19 at 06:00; Stop 06/11/19 at 07:59; Status DC Hydromorphone HCl (Dilaudid) 1 mg PRN Q3HRS PRN IV PAIN Last administered on 06/11/19at 09:29; Start 06/11/19 at 09:15; Stop 06/11/19 at 11:54; Status DC Prochlorperazine Edisylate (Compazine) 10 mg PRN Q8HRS PRN IV NAUSEA/VOMITING Last administered on 06/12/19at 14:59; Start 06/11/19 at 12:00 Hydromorphone HCl (Dilaudid) 1 mg PRN Q2HRS PRN IV PAIN Last administered on 06/14/19at 13:00; Start 06/11/19 at 12:00 Pantoprazole Sodium (PROTONIX VIAL for IV PUSH) 40 mg DAILYAC IVP Last administered on 06/12/19at 08:29; Start 06/11/19 at 15:00; Stop 06/12/19 at 16:23; Status DC Lorazepam (Ativan Inj) 1 mg PRN Q6HRS PRN IVP ANXIETY / AGITATION Last administered on 06/14/19at 13:00; Start 06/11/19 at 18:15 Hydralazine HCl (Apresoline Inj) 10 mg PRN Q6HRS PRN IVP ELEVATED BP, SEE COMMENTS Last administered on 06/18/19at 09:32; Start 06/11/19 at 18:15 Nystatin (Nystop) 1 devorah PRN QID PRN TP FUNGAL RASH Last administered on 06/11/19at 23:19; Start 06/11/19 at 23:15 Sodium Chloride 1,000 ml @ 1,000 mls/hr 1X ONCE IV Last administered on 06/12/19at 05:27; Start 06/12/19 at 06:00; Stop 06/12/19 at 06:59; Status DC Sodium Chloride 1,000 ml @ 1,000 mls/hr 1X ONCE IV Last administered on 06/12/19at 05:25; Start 06/12/19 at 05:00; Stop 06/12/19 at 05:59; Status DC Sodium Chloride 1,000 ml @ 200 mls/hr Q5H IV Last administered on 06/12/19at 06:36; Start 06/12/19 at 07:00; Stop 06/12/19 at 11:01; Status DC Sodium Bicarbonate 50 meq/Sodium Chloride 1,050 ml @ 150 mls/hr Q7H IV Last administered on 06/13/19at 04:16; Start 06/12/19 at 11:00; Stop 06/13/19 at 14:48; Status DC Amino Acids/ Glycerin/ Electrolytes 1,000 ml @ 80 mls/hr [id number] IV ; Start 06/12/19 at 10:00; Status UNV Amino Acids/ Electrolytes/ Dextrose 1,000 ml @ 80 mls/hr [id number] IV ; Start 06/12/19 at 10:15 Piperacillin Sod/ Tazobactam Sod (Zosyn Per Pharmacy) 1 each PRN DAILY PRN MC SEE COMMENTS; Start 06/12/19 at 13:15; Stop 06/12/19 at 19:16; Status DC Piperacillin Sod/ Tazobactam Sod 2.25 gm/Sodium Chloride 50 ml @ 100 mls/hr Q6HRS IV Last administered on 06/12/19at 13:48; Start 06/12/19 at 13:30; Stop 06/12/19 at 19:15; Status DC Sodium Bicarbonate (Sodium Bicarb Adult 8.4% Syr) 50 meq 1X ONCE IV Last administered on 06/12/19at 16:12; Start 06/12/19 at 16:00; Stop 06/12/19 at 16:01; Status DC Calcium Gluconate 1000 mg/Sodium Chloride 110 ml @ 220 mls/hr 1X ONCE IV Last administered on 06/12/19at 16:13; Start 06/12/19 at 16:00; Stop 06/12/19 at 16:29; Status DC Dextrose (Dextrose 50%-Water Syringe) 25 gm 1X ONCE IV Last administered on at 16:13; Start 06/12/19 at 16:00; Stop 06/12/19 at 16:01; Status DC Insulin Human Regular (HumuLIN R VIAL) 10 unit 1X ONCE IV Last administered on 06/12/19at 16:14; Start 06/12/19 at 16:00; Stop 06/12/19 at 16:01; Status DC Furosemide (Lasix) 40 mg 1X ONCE IVP Last administered on 06/12/19at 16:13; Start 06/12/19 at 16:00; Stop 06/12/19 at 16:01; Status DC Pantoprazole Sodium (PROTONIX VIAL for IV PUSH) 40 mg [id number] IVP Last administered on 06/13/19at 06:21; Start 06/12/19 at 18:00; Stop 06/13/19 at 18:49; Status DC Meropenem 500 mg/ Sodium Chloride 50 ml @ 100 mls/hr Q12HR IV Last administered on 06/17/19at 20:59; Start 06/12/19 at 21:00; Stop 06/18/19 at 07:26; Status DC Calcium Gluconate 1000 mg/Sodium Chloride 110 ml @ 220 mls/hr 1X ONCE IV Last administered on 06/12/19at 20:35; Start 06/12/19 at 19:15; Stop 06/12/19 at 19:44; Status DC Lidocaine HCl (Buffered Lidocaine 1%) 3 ml STK-MED ONCE .ROUTE ; Start 06/13/19 at 08:47; Stop 06/13/19 at 08:47; Status DC Lidocaine HCl (Buffered Lidocaine 1%) 6 ml 1X ONCE INJ Last administered on 06/13/19at 09:23; Start 06/13/19 at 09:30; Stop 06/13/19 at 09:31; Status DC Insulin Human Lispro (HumaLOG) 0-7 UNITS TIDWMEALS SQ Last administered on 06/13/19at 12:14; Start 06/13/19 at 12:00; Stop 06/14/19 at 23:29; Status DC Dextrose (Dextrose 50%-Water Syringe) 12.5 gm PRN Q15MIN PRN IV SEE COMMENTS; Start 06/13/19 at 11:15; Stop 06/14/19 at 23:29; Status DC Insulin Human Regular 100 unit/ Sodium Chloride 101 ml @ 0 mls/hr CONT PRN IV SEE I/O RECORD Last administered on 06/13/19at 15:03; Start 06/13/19 at 14:15 Sodium Chloride 1,000 ml @ 1,000 mls/hr Q1H PRN IV hypotension; Start 06/13/19 at 14:00; Stop 06/13/19 at 19:59; Status DC Sodium Chloride 1,000 ml @ 400 mls/hr Q2H30M PRN IV PATENCY; Start 06/13/19 at 14:00; Stop 06/14/19 at 01:59; Status DC Info (PHARMACY MONITORING -- do not chart) 1 each PRN DAILY PRN MC SEE ISIDRO NTS; Start 06/13/19 at 14:45; Stop 06/13/19 at 14:51; Status DC Info (PHARMACY MONITORING -- do not chart) 1 each PRN DAILY PRN MC SEE COMMENTS; Start 06/13/19 at 14:45 Pantoprazole Sodium (PROTONIX VIAL for IV PUSH) 40 mg [id number] IVP Last administered on 06/18/19at 06:12; Start 06/13/19 at 21:00 Dexmedetomidine HCl 400 mcg/ Sodium Chloride 100 ml @ 0 mls/hr CONT PRN IV PER PROTOCOL Last administered on 06/18/19at 00:24; Start 06/13/19 at 19:00 Sodium Chloride 500 ml @ 500 mls/hr 1X PRN PRN IV SEE COMMENTS; Start 06/13/19 at 19:00 Atropine Sulfate (ATROPINE 0.5mg SYRINGE) 0.5 mg PRN Q5MIN PRN IV SEE COMMENTS; Start 06/13/19 at 19:00 Sodium Chloride 1,000 ml @ 1,000 mls/hr Q1H PRN IV hypotension; Start 06/14/19 at 08:55; Stop 06/14/19 at 14:54; Status DC Albumin Human 200 ml @ 200 mls/hr 1X PRN PRN IV Hypotension Last administered on 06/14/19at 09:40; Start 06/14/19 at 09:00; Stop 06/14/19 at 14:59; Status DC Sodium Chloride 1,000 ml @ 400 mls/hr Q2H30M PRN IV PATENCY; Start 06/14/19 at 08:55; Stop 06/14/19 at 20:54; Status DC Info (PHARMACY MONITORING -- do not chart) 1 each PRN DAILY PRN MC SEE COMMENTS; Start 06/14/19 at 09:00; Stop 06/14/19 at 09:06; Status DC Info (PHARMACY MONITORING -- do not chart) 1 each PRN DAILY PRN MC SEE COMMENTS; Start 06/14/19 at 09:00; Stop 06/14/19 at 09:06; Status DC Calcium Chloride 2000 mg/Sodium Chloride 120 ml @ 240 mls/hr PRN QID PRN IV for CALCIUM < 5.8 Last administered on 06/15/19at 08:32; Start 06/14/19 at 10:15; Stop 06/15/19 at 09:58; Status DC Magnesium Sulfate 50 ml @ 25 mls/hr PRN DAILY PRN IV for Mag < 1.7 on am labs; Start 06/14/19 at 10:30 Norepinephrine Bitartrate 8 mg/ Dextrose 258 ml @ 20.027 mls/ hr CONT PRN IV PER PROTOCOL Last administered on 06/14/19at 10:31; Start 06/14/19 at 10:30 Succinylcholine Chloride (Anectine) 200 mg STK-MED ONCE .ROUTE ; Start 06/14/19 at 12:22; Stop 06/14/19 at 12:23; Status DC Etomidate (Amidate) 20 mg STK-MED ONCE IV ; Start 06/14/19 at 12:22; Stop 06/14/19 at 12:23; Status DC Fentanyl Citrate 30 ml @ 0 mls/hr CONT PRN IV SEE PROTOCOL Last administered on 06/18/19at 08:17; Start 06/14/19 at 12:45 Chlorhexidine Gluconate (Peridex) 15 ml BID MM Last administered on 06/17/19at 20:59; Start 06/14/19 at 21:00 Midazolam HCl 50 mg/Sodium Chloride 50 ml @ 0 mls/hr CONT PRN IV SEE PROTOCOL Last administered on 06/18/19at 10:22; Start 06/14/19 at 12:45 Midazolam HCl (Versed) 5 mg STK-MED ONCE .ROUTE ; Start 06/14/19 at 12:48; Stop 06/14/19 at 12:48; Status DC Fentanyl Citrate (Fentanyl 2ml Vial) 100 mcg STK-MED ONCE .ROUTE ; Start 06/14/19 at 12:48; Stop 06/14/19 at 12:48; Status DC Midazolam HCl (Versed) 5 mg 1X ONCE IV Last administered on 06/14/19at 12:59; Start 06/14/19 at 13:00; Stop 06/14/19 at 13:01; Status DC Fentanyl Citrate (Fentanyl 2ml Vial) 100 mcg 1X ONCE IM Last administered on 06/14/19at 12:58; Start 06/14/19 at 13:00; Stop 06/14/19 at 13:01; Status DC Succinylcholine Chloride (Anectine) 200 mg 1X ONCE IV Last administered on 06/14/19at 12:59; Start 06/14/19 at 13:00; Stop 06/14/19 at 13:01; Status DC Etomidate (Amidate) 14 mg 1X ONCE IV Last administered on 06/14/19at 12:59; Start 06/14/19 at 13:00; Stop 06/14/19 at 13:01; Status DC Acetaminophen (Tylenol Supp) 650 mg PRN Q6HRS PRN FL MILD PAIN / TEMP Last administered on 06/17/19at 13:09; Start 06/14/19 at 20:00 Linezolid/Dextrose 300 ml @ 300 mls/hr Q12HR IV Last administered on 06/18/19at 09:32; Start 06/14/19 at 21:00 Insulin Human Lispro (HumaLOG) 0-7 UNITS TIDWMEALS SQ ; Start 06/15/19 at 08:00; Stop 06/15/19 at 00:03; Status DC Dextrose (Dextrose 50%-Water Syringe) 12.5 gm PRN Q15MIN PRN IV SEE COMMENTS; Start 06/14/19 at 23:30 Insulin Human Lispro (HumaLOG) 0-7 UNITS Q4HRS SQ Last administered on 06/18/19at 08:14; Start 06/15/19 at 00:15 Calcium Gluconate 76479 mg/Sodium Chloride 494 ml @ 4.051 mls/ hr CONT PRN IV SYMPTOMATIC HYPOCALCEMIA; Start 06/15/19 at 09:30; Stop 06/15/19 at 09:23; Status DC Calcium Gluconate 5000 mg/Sodium Chloride 260 ml @ 5.543 mls/ hr CONT PRN IV SYMPTOMATIC HYPOCALCEMIA; Start 06/15/19 at 09:30; Stop 06/15/19 at 09:26; Status DC Calcium Gluconate 5000 mg/Sodium Chloride 260 ml @ 5.543 mls/ hr CONT PRN IV SYMPTOMATIC HYPOCALCEMIA; Start 06/15/19 at 09:30; Stop 06/15/19 at 09:29; Status DC Calcium Gluconate 5000 mg/Sodium Chloride 250 ml @ 28.782 mls/ hr CONT PRN IV SYMPTOMATIC HYPOCALCEMIA Last administered on 06/18/19at 06:12; Start 06/15/19 at 09:30 Lidocaine HCl (Lidocaine Pf 2% Vial) 5 ml STK-MED ONCE .ROUTE ; Start 06/14/19 at 12:00; Stop 06/17/19 at 10:37; Status DC Meropenem 500 mg/ Sodium Chloride 50 ml @ 100 mls/hr Q6HRS IV Last administered on 06/18/19at 08:08; Start 06/18/19 at 07:30 Active Scripts Active Vitals/I & O Vital Sign - Last 24 Hours 06/17/19 06/17/19 06/17/19 06/17/19 11:00 12:00 12:00 12:49 Temp 100.6 101.6 100.6 101.6 Pulse 97 102 Resp 15 15 B/P (MAP) 135/74 (94) 160/72 (101) Pulse Ox 100 100 97 O2 Delivery Ventilator Ventilator Mechanical Ventilator Ventilator 06/17/19 06/17/19 06/17/19 06/17/19 13:00 14:00 14:02 15:00 Temp 101.5 101.3 101.5 101.5 101.3 101.5 Pulse 104 104 103 Resp 15 15 16 B/P (MAP) 152/68 (96) 158/60 (92) 152/71 (98) Pulse Ox 98 98 98 97 O2 Delivery Ventilator Ventilator Ventilator Ventilator 06/17/19 06/17/19 06/17/19 06/17/19 15:54 16:00 16:00 16:18 Temp 100.9 100.9 Pulse 96 Resp 16 B/P (MAP) 142/76 (98) Pulse Ox 97 97 97 O2 Delivery Ventilator Mechanical Ventilator Ventilator 06/17/19 06/17/19 06/17/19 06/17/19 17:00 17:55 18:02 19:00 Temp 100.9 100.8 100.4 100.9 100.8 100.4 Pulse 96 104 100 Resp 16 20 18 B/P (MAP) 136/62 (86) 148/71 (96) 124/72 (89) Pulse Ox 97 99 98 98 O2 Delivery Ventilator Ventilator Ventilator Ventilator 06/17/19 06/17/19 06/17/19 06/17/19 19:46 20:00 20:00 20:46 Temp 100.0 100.0 Pulse 94 Resp 17 B/P (MAP) 112/77 (89) Pulse Ox 98 97 98 O2 Delivery Ventilator Ventilator Mechanical Ventilator Ventilator 06/17/19 06/17/19 06/17/19 06/17/19 21:00 22:00 23:00 23:04 Temp 99.7 99.3 99.0 99.7 99.3 99.0 Pulse 90 90 86 Resp 16 16 15 B/P (MAP) 134/66 (88) 127/66 (86) 116/64 (81) Pulse Ox 98 99 98 99 O2 Delivery Ventilator Ventilator Ventilator Ventilator 06/18/19 06/18/19 06/18/19 06/18/19 00:00 00:00 00:23 01:00 Temp 98.6 98.6 98.6 98.6 Pulse 82 80 Resp 14 14 B/P (MAP) 118/72 (87) 121/69 (86) Pulse Ox 100 99 100 O2 Delivery Mechanical Ventilator Ventilator Ventilator O2 Flow Rate 3.0 06/18/19 06/18/19 06/18/19 06/18/19 01:15 02:00 03:00 03:10 Temp 98.6 98.8 98.6 98.8 Pulse 78 84 Resp 14 14 B/P (MAP) 109/65 (80) 132/60 (84) Pulse Ox 99 99 100 100 O2 Delivery Ventilator Ventilator Ventilator Ventilator 06/18/19 06/18/19 06/18/19 06/18/19 04:00 04:00 05:00 05:30 Temp 99.1 99.3 99.1 99.3 Pulse 87 93 Resp 16 16 B/P (MAP) 121/71 (88) 157/84 (108) Pulse Ox 100 99 99 O2 Delivery Mechanical Ventilator Ventilator Ventilator Ventilator 06/18/19 06/18/19 06/18/19 06/18/19 06:00 07:00 08:00 08:30 Temp 99.7 99.7 99.7 99.7 Pulse 91 116 119 Resp 18 18 18 B/P (MAP) 128/75 (92) 128/75 (92) 171/77 (108) Pulse Ox 98 99 98 99 O2 Delivery Ventilator Ventilator Ventilator Ventilator 06/18/19 06/18/19 06/18/19 06/18/19 09:00 09:32 10:00 10:15 Temp 100.2 100.4 100.2 100.4 Pulse 124 130 124 Resp 18 18 B/P (MAP) 188/108 (134) 212/124 133/69 (90) Pulse Ox 99 98 98 O2 Delivery Ventilator Ventilator Ventilator Intake and Output 06/17/19 06/17/19 06/18/19 15:00 23:00 07:00 Intake Total 200 ml 894.5 ml 583 ml Output Total 1050 ml 1275 ml 1160 ml Balance -850 ml -380.5 ml -577 ml Hemodynamically unstable?: Yes Is patient in severe pain?: Yes Is NPO status required?: Yes JERSON AVILES MD Jun 18, 2019 10:37
--- NOTE | 2019-06-18 11:40 | NUR ---
1140, patient's blood pressure 242/114 with HR 146, rechecked at 1145 and bp continued to be 241/131; Perla Ma [employer] for cardiology notified and order for nicardipine gtt and metoprolol received. At 1207 when scanning meds to give for bp and elevated HR vitals normal at 126/71 with hr 124; meds not given at this time.
--- NOTE | 2019-06-18 11:47 | PDOC2 ---
ANETTE FITZGERALD SHOT EXAMINER 06/18/19 1147: CARDIAC CONSULT DATE OF CONSULT Date of Consult DATE: 06/18/19 TIME: 11:36 REASON FOR CONSULT Reason for Consult: Sinus tachycardia REFERRING PHYSICIAN Referring Physician: Dr. Dawson SOURCE Source: Chart review, Patient HISTORY OF PRESENT ILLNESS HISTORY OF PRESENT ILLNESS This is a 49 yo male who presented secondary to epigastric, abdominal pain back on 06/11/19. Noted with pancreatitis. Hosptial course complicated with respiratory failure requiring intubation, renal failure, and metabolic/respiratory acidosis. Now with severe pancreatitis with necrosis. Has been tachycardic, which prompted this consult. Blood pressure also significantly elevated at 212/124. PAST MEDICAL HISTORY GI: GERD Hepatobiliary: Other (pancreatitis) PAST SURGICAL HISTORY Past Surgical History: No pertinent history FAMILY HISTORY Family History: Other (noncontributory ) SOCIAL HISTORY Social History Smoke: No (occasional cigar) ALCOHOL: social (3-4 drinks weekly) Drugs: None CURRENT MEDICATIONS CURRENT MEDICATIONS Current Medications Medications (Trade) Dose Ordered Sig/Jesse Route PRN Reason Start Time Stop Time Status Last Admin Dose Admin Meropenem 500 mg/ Sodium Chloride 50 ml @ 100 mls/hr Q6HRS IV 06/18/19 07:30 06/18/19 08:08 ALLERGIES ALLERGIES: Coded Allergies: No Known Drug Allergies (Unverified , 01/28/16) ROS Review of System unobtainable PHYSICAL EXAM General: Other (intubated/sedated ) HEENT: Atraumatic Lungs: Other (mechanical vent ) Heart: Other (ST, rate near 125-130) Abdomen: Other (firm, distended ) Extremities: No edema Skin: No significant lesion Neuro: Other (sedated) MUSCULOSKELETAL: No deformity VITALS/I&O VITALS/I&O: Vital Signs Date Time Temp Pulse Resp B/P (MAP) Pulse Ox O2 Delivery O2 Flow Rate FiO2 06/18/19 10:15 98 Ventilator 06/18/19 10:00 100.4 124 18 133/69 (90) 100.4 06/18/19 00:23 3.0 I & O 06/17/19 06/17/19 06/18/19 15:00 23:00 07:00 Intake Total 200 ml 894.5 ml 583 ml Output Total 1050 ml 1275 ml 1160 ml Balance -850 ml -380.5 ml -577 ml LABS Lab: Laboratory Tests Test 06/17/19 18:34 06/17/19 18:39 06/17/19 20:31 06/17/19 23:30 Glucose (Fingerstick) 258 mg/dL (70-99) H 244 mg/dL (70-99) H Ionized Calcium 1.09 mmol/L (1.13-1.32) L 1.11 mmol/L (1.13-1.32) L Test 06/17/19 23:44 06/18/19 04:45 06/18/19 04:50 06/18/19 08:12 Glucose (Fingerstick) 264 mg/dL (70-99) H 256 mg/dL (70-99) H 270 mg/dL (70-99) H White Blood Count 16.9 x10^3/uL (4.0-11.0) H Red Blood Count 3.29 x10^6/uL (4.30-5.70) L Hemoglobin 9.6 g/dL (13.0-17.5) L Hematocrit 29.6 % (39.0-53.0) L Mean Corpuscular Volume 90 fL (79-100) Mean Corpuscular Hemoglobin 29 pg (25-35) Mean Corpuscular Hemoglobin Concent 32 g/dL (31-37) Red Cell Distribution Width 14.9 % (11.5-14.5) H Platelet Count 222 x10^3/uL (140-400) Neutrophils (%) (Auto) 91 % (31-73) H Lymphocytes (%) (Auto) 4 % (24-48) L Monocytes (%) (Auto) 5 % (0-9) Eosinophils (%) (Auto) 0 % (0-3) Basophils (%) (Auto) 0 % (0-3) Neutrophils # (Auto) 15.3 x10^3/uL (1.8-7.7) H Lymphocytes # (Auto) 0.7 x10^3/uL (1.0-4.8) L Monocytes # (Auto) 0.9 x10^3/uL (0.0-1.1) Eosinophils # (Auto) 0.0 x10^3/uL (0.0-0.7) Basophils # (Auto) 0.0 x10^3/uL (0.0-0.2) Sodium Level 154 mmol/L (136-145) H Potassium Level 5.7 mmol/L (3.5-5.1) H Chloride Level 116 mmol/L (98-107) H Carbon Dioxide Level 31 mmol/L (21-32) Anion Gap 7 (6-14) Blood Urea Nitrogen 45 mg/dL (8-26) H Creatinine 1.7 mg/dL (0.7-1.3) H Estimated GFR (Cockcroft-Gault) 52.1 Glucose Level 275 mg/dL (70-99) H Calcium Level 8.6 mg/dL (8.5-10.1) Ionized Calcium 1.12 mmol/L (1.13-1.32) L Phosphorus Level 2.7 mg/dL (2.6-4.7) Magnesium Level 3.1 mg/dL (1.8-2.4) H Albumin 1.9 g/dL (3.4-5.0) L Test 06/18/19 08:30 O2 Saturation 96 % (92-99) Arterial Blood pH 7.40 (7.35-7.45) Arterial Blood pCO2 at Patient Temp 44 mmHg (35-46) Arterial Blood pO2 at Patient Temp 87 mmHg (75-108) Arterial Blood HCO3 26 mmol/L (21-28) Arterial Blood Base Excess 1 mmol/L (-3-3) FiO2 40 Laboratory Tests 06/18/19 04:45 Laboratory Tests 06/18/19 04:45 ASSESSMENT/PLAN ASSESSMENT/PLAN 1. Gallstone pancreatitis, now with necrosis; surgical team following. high risk for surgery, presently 2. Acute respiratory failure s/p intubation 3. Leukocytosis, lactic acidosis, fevers 4. Tachycardia, sinus; physiologic secondary to above 5. Hypertensive urgency; SBP >200 6. FABIOLA, hyperkalemia 7. Hep B 8. Metabolic/toxic encephalopathy Recommendations EKG HR elevated with setting of febrile infection, necrotizing pancreatitis Will start cardene Supportive care from a CV standpoint GHASSAN STEVENS MD 06/18/19 8177: CARDIAC CONSULT ASSESSMENT/PLAN ASSESSMENT/PLAN Pt. seen and examined. Agree with above CAUL FAT PULLER note. Supportive care. No further CV testing needed. Will be available for any acute issues. Thanks. ANETTE FITZGERALD APRN Jun 18, 2019 11:47 GHASSAN STEVENS MD Jun 18, 2019 17:57
--- NOTE | 2019-06-18 12:10 | PDOC ---
Objective: Objective: D/w nurse - cardiology following, has been tachycardic and hypertensive (> 200/100). Had to increase precedex. Tmax 100.4 Vital Signs: Vital Signs Date Time Temp Pulse Resp B/P (MAP) Pulse Ox O2 Delivery O2 Flow Rate FiO2 06/18/19 10:15 98 Ventilator 06/18/19 10:00 100.4 124 18 133/69 (90) 100.4 06/18/19 00:23 3.0 Labs: Laboratory Tests Test 06/17/19 18:34 06/17/19 18:39 06/17/19 20:31 06/17/19 23:30 Glucose (Fingerstick) 258 mg/dL 244 mg/dL Ionized Calcium 1.09 mmol/L 1.11 mmol/L Test 06/17/19 23:44 06/18/19 04:45 06/18/19 04:50 06/18/19 08:12 Glucose (Fingerstick) 264 mg/dL 256 mg/dL 270 mg/dL White Blood Count 16.9 x10^3/uL Red Blood Count 3.29 x10^6/uL Hemoglobin 9.6 g/dL Hematocrit 29.6 % Mean Corpuscular Volume 90 fL Mean Corpuscular Hemoglobin 29 pg Mean Corpuscular Hemoglobin Concent 32 g/dL Red Cell Distribution Width 14.9 % Platelet Count 222 x10^3/uL Neutrophils (%) (Auto) 91 % Lymphocytes (%) (Auto) 4 % Monocytes (%) (Auto) 5 % Eosinophils (%) (Auto) 0 % Basophils (%) (Auto) 0 % Neutrophils # (Auto) 15.3 x10^3/uL Lymphocytes # (Auto) 0.7 x10^3/uL Monocytes # (Auto) 0.9 x10^3/uL Eosinophils # (Auto) 0.0 x10^3/uL Basophils # (Auto) 0.0 x10^3/uL Sodium Level 154 mmol/L Potassium Level 5.7 mmol/L Chloride Level 116 mmol/L Carbon Dioxide Level 31 mmol/L Anion Gap 7 Blood Urea Nitrogen 45 mg/dL Creatinine 1.7 mg/dL Estimated GFR (Cockcroft-Gault) 52.1 Glucose Level 275 mg/dL Calcium Level 8.6 mg/dL Ionized Calcium 1.12 mmol/L Phosphorus Level 2.7 mg/dL Magnesium Level 3.1 mg/dL Albumin 1.9 g/dL Test 06/18/19 08:30 O2 Saturation 96 % Arterial Blood pH 7.40 Arterial Blood pCO2 at Patient Temp 44 mmHg Arterial Blood pO2 at Patient Temp 87 mmHg Arterial Blood HCO3 26 mmol/L Arterial Blood Base Excess 1 mmol/L FiO2 40 BLOOD CULTURE Final NO GROWTH AFTER 5 DAYS PE: GEN: intubated, no family present LUNGS: clear anteriorly HEART: tachycardic ABD: distended, quiet NEURO/PSYCH: sedated A/P: Necrotizing pancreatitis -- Will review w/ Dr. Coker. Hemodynamically unstable?: Yes Is patient in severe pain?: Yes Is NPO status required?: Yes PAXTON ALEXANDER Jun 18, 2019 12:09
[2019-06-18] MEDS ORDERED: METOPROLOL TARTRATE 5 MG/5 ML VIAL. IVP ONE (12:15)
--- NOTE | 2019-06-18 15:43 | EKG ---
[facility] [address] [place] [address] Test Date: 2019-06-18 Test Time: 15:40:41 Pat Name: CHRISTOPHER NEWSOME Department: Room: 111 1 Gender: M Center Medical Director: : 1970 Requested By: ANETTE FITZGERALD Order Number: [id number] Reading MD: Lavelle Jimenez Measurements Intervals [place] Rate: 97 P: 28 MI: 128 QRS: 30 QRSD: 130 T: 29 QT: 340 QTc: 436 Interpretive Statements SINUS RHYTHM RIGHT BUNDLE BRANCH BLOCK ABNORMAL ECG Electronically Signed On 07-14-2019 8:22:16 CDT by Lavelle Jimenez
[2019-06-18] MEDS: ENOXAPARIN 40 MG/0.4 ML SYRINGE. SQ SCH (22:34)
[2019-06-19] VITALS (23 sets, daily range): BP systolic 82–173; BP diastolic 53–112
[2019-06-19] MEDS: MEROPENEM 500 MG in IV NORMAL SALINE 50ML 50 ML IV SCH ×4 (00:08→17:34)
[2019-06-19] MEDS: INSULIN LISPRO 300 UNITS/3 ML VIAL. SQ SCH ×6 (00:22→20:00)
--- NOTE | 2019-06-19 03:30 | NUR ---
At 0315 OG was seen coiled in patient's mouth. OG removed and replaced without difficulty once patient was bolused with Versed 5MG IV and Fentanyl 50MCGs IV--Size 18 OG placement verified with auscultation of air instillation in patients upper abdomen and return of green gastric contents. Addendum: 06/19/19 at 0429 by YOHANA ARTHUR RN Amended: Links added.
[2019-06-19] MEDS: MIDAZOLAM HCL 50 MG in IV NORMAL SALINE 50ML 50 ML IV PRN ×2 (03:36→11:51)
[2019-06-19] MEDS: DEXMEDETOMIDINE 400 MCG in IV NORMAL SALINE 100ML 96 ML IV PRN ×6 (05:01→21:31)
[2019-06-19] MEDS: PANTOPRAZOLE IV PUSH 40 MG VIAL. IVP SCH ×2 (06:23→17:34)
[2019-06-19 06:43] LABS: BASO % 0 % (0-3); EOS % 0 % (0-3); HEMATOCRIT 29.5 % (39.0-53.0); HEMOGLOBIN 9.5 g/dL (13.0-17.5); LYMPH # 0.6 x10^3/uL (1.0-4.8); LYMPH % 4 % (24-48); MEAN CORPUSCULAR HEMOGLOBIN 29 pg (25-35); MEAN CORPUSCULAR HGB CONC 32 g/dL (31-37); MEAN CORPUSCULAR VOLUME 90 fL (79-100); MONO # 0.5 x10^3/uL (0.0-1.1); MONO % 3 % (0-9); NEUT # 14.8 x10^3/uL (1.8-7.7); NEUT % 93 % (31-73); PLATELET COUNT 239 x10^3/uL (140-400); RED BLOOD COUNT 3.27 x10^6/uL (4.30-5.70); RED CELL DISTRIBUTION WIDTH 14.7 % (11.5-14.5); WHITE BLOOD COUNT 15.9 x10^3/uL (4.0-11.0)
[2019-06-19 06:46] LABS: ALBUMIN 1.7 g/dL (3.4-5.0); CALCIUM 7.5 mg/dL (8.5-10.1); CREATININE 1.5 mg/dL (0.7-1.3); GFR 60.2; PHOSPHORUS 2.4 mg/dL (2.6-4.7); POTASSIUM 5.1 mmol/L (3.5-5.1)
--- NOTE | 2019-06-19 07:20 | PDOC ---
Infectious Disease Note Subjective Subjective Intubated, FiO2 40% 5 PEEP Sedated BC repeated and Zyvox added Vital Sign Vital Signs Vital Signs Date Time Temp Pulse Resp B/P (MAP) Pulse Ox O2 Delivery O2 Flow Rate FiO2 06/19/19 05:44 100 Ventilator 06/19/19 04:00 99.3 91 18 111/82 (92) 99.3 Physical Exam PHYSICAL EXAM GENERAL: Sedated, orally intubated on vent, mitts HEENT: Pupils equal, small. OGT/ETT in place NECK: Supple no JVD LUNGS: Diminished aeration bases HEART: S1, S2, regular, no murmurs. ABDOMEN: Distended, tight but some soft, no guarding to palpation, BS hypoactive : [place] EXTREMITIES: trace edema, no cyanosis. SCDs bilaterally SKIN: Warm, dry. 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 WALKING DRAGLINE OPERATOR: Sedated RIJ/HD catheter (06/13) clean Labs Lab Laboratory Tests Test 06/18/19 08:12 06/18/19 08:30 06/18/19 12:40 06/18/19 17:31 Glucose (Fingerstick) 270 mg/dL (70-99) 309 mg/dL (70-99) 210 mg/dL (70-99) O2 Saturation 96 % (92-99) Arterial Blood pH 7.40 (7.35-7.45) Arterial Blood pCO2 at Patient Temp 44 mmHg (35-46) Arterial Blood pO2 at Patient Temp 87 mmHg (75-108) Arterial Blood HCO3 26 mmol/L (21-28) Arterial Blood Base Excess 1 mmol/L (-3-3) FiO2 40 Test 06/18/19 20:55 06/19/19 00:20 06/19/19 04:40 06/19/19 06:15 Glucose (Fingerstick) 184 mg/dL (70-99) 233 mg/dL (70-99) 232 mg/dL (70-99) White Blood Count 15.9 x10^3/uL (4.0-11.0) Red Blood Count 3.27 x10^6/uL (4.30-5.70) Hemoglobin 9.5 g/dL (13.0-17.5) Hematocrit 29.5 % (39.0-53.0) Mean Corpuscular Volume 90 fL (79-100) Mean Corpuscular Hemoglobin 29 pg (25-35) Mean Corpuscular Hemoglobin Concent 32 g/dL (31-37) Red Cell Distribution Width 14.7 % (11.5-14.5) Platelet Count 239 x10^3/uL (140-400) Neutrophils (%) (Auto) 93 % (31-73) Lymphocytes (%) (Auto) 4 % (24-48) Monocytes (%) (Auto) 3 % (0-9) Eosinophils (%) (Auto) 0 % (0-3) Basophils (%) (Auto) 0 % (0-3) Neutrophils # (Auto) 14.8 x10^3/uL (1.8-7.7) Lymphocytes # (Auto) 0.6 x10^3/uL (1.0-4.8) Monocytes # (Auto) 0.5 x10^3/uL (0.0-1.1) Eosinophils # (Auto) 0.0 x10^3/uL (0.0-0.7) Basophils # (Auto) 0.0 x10^3/uL (0.0-0.2) Sodium Level 159 mmol/L (136-145) Potassium Level 5.1 mmol/L (3.5-5.1) Chloride Level 122 mmol/L (98-107) Carbon Dioxide Level 32 mmol/L (21-32) Anion Gap 5 (6-14) Blood Urea Nitrogen 40 mg/dL (8-26) Creatinine 1.5 mg/dL (0.7-1.3) Estimated GFR (Cockcroft-Gault) 60.2 Glucose Level 235 mg/dL (70-99) Calcium Level 7.5 mg/dL (8.5-10.1) Phosphorus Level 2.4 mg/dL (2.6-4.7) Magnesium Level 2.8 mg/dL (1.8-2.4) Albumin 1.7 g/dL (3.4-5.0) Micro CT 3/2 Lower chest: Moderate left and small right pleural effusions with adjacent atelectasis. Abdomen and pelvis: Severe findings of pancreatitis. Diffuse hypoattenuation of the pancreas, concerning for necrosis. Evaluation degraded without IV contrast. Fluid collection along the inferior aspect of the stomach measures 9.6 x 4.0 cm. Loculated fluid collection along the anterior aspect of the pancreas measures 3.0 x 2.6 cm. Severe inflammatory changes extending inferiorly. Small perihepatic free fluid. Bilateral perinephric inflammatory changes. Cholelithiasis. The liver, spleen, adrenal glands and kidneys are unremarkable noncontrast appearance. No hydronephrosis. Regions of colonic wall thickening, likely reactive. Normal appendix. Enteric tube within the stomach. No evidence of small bowel obstruction. Duodenal proximal jejunal wall thickening, likely reactive. Multiple enlarged mesenteric lymph nodes.. Catheter within the urinary bladder. Mild body wall edema. Impression: 1. Increased severe pancreatitis with extensive inflammatory changes and hypoattenuation of the pancreas, concerning for necrosis although evaluation degraded without IV contrast. 2. New fluid collection along the inferior aspect of the stomach and anterior aspect of the pancreas. 3. Increased multifocal colonic and small bowel wall thickening, likely reactive. 4. New small perihepatic free fluid. 5. Cholelithiasis. 6. Mesenteric lymphadenopathy, likely reactive. 7. Moderate left and small right pleural effusion with adjacent atelectasis. Microbiology 06/14/19 Blood Culture - Preliminary, Resulted NO GROWTH AFTER 1 DAY Objective Assessment Fever - better Leukocytosis - mild improvement today - ? reactive ? Ileus - clinically stable - temps improved Gallbladder stone pancreatitis - lipase 475 06/15.- better. CT 06/15 - Fluid col lection along the inferior aspect of the stomach measures 9.6 x 4.0 cm. Loculated fluid collection along the anterior aspect of the pancreas measures 3.0 x 2.6 cm - Per Surgery . Sepsis from GI - cult neg Acute Resp failure - intubated Lactic acidosis. Acute kidney injury previously requiring dialysis - now with improved UOP, HDC (06/13) Metabolic acidosis. Hypocalcemia Basilar atelectasis. Plan Plan of Care Clinically stable to some improvement. ? WBC leukomoid. Will monitor and if temps increase or he worsens will check cults and expand with Micafungin but for now try to avoid additional meds as he seems some better Continue empiric merrem - increased dose 06/17 Zyvox added Reviewed GI and surgical notes CBC in am Renal, GI and General Surgery/Pulm following. BC neg to date Maintain aspiration precaution. D/w nursing Critically ill D/w 06/15 LE CROWLEY MD Jun 19, 2019 07:20
--- NOTE | 2019-06-19 08:10 | PDOC ---
G I PROGRESS NOTE Subjective Sedated on ventilator. Physical Exam Lungs coarse bilaterally. RRR Abdomen distended, firm. No bowel sounds heard. Review of Relevant I have reviewed the following items alexandra (where applicable) has been applied. Labs Laboratory Tests Test 06/17/19 08:49 06/17/19 10:36 06/17/19 18:34 06/17/19 18:39 Glucose (Fingerstick) 224 mg/dL (70-99) 258 mg/dL (70-99) Ionized Calcium 1.05 mmol/L (1.13-1.32) 1.09 mmol/L (1.13-1.32) Test 06/17/19 20:31 06/17/19 23:30 06/17/19 23:44 06/18/19 04:45 Glucose (Fingerstick) 244 mg/dL (70-99) 264 mg/dL (70-99) Ionized Calcium 1.11 mmol/L (1.13-1.32) 1.12 mmol/L (1.13-1.32) White Blood Count 16.9 x10^3/uL (4.0-11.0) Red Blood Count 3.29 x10^6/uL (4.30-5.70) Hemoglobin 9.6 g/dL (13.0-17.5) Hematocrit 29.6 % (39.0-53.0) Mean Corpuscular Volume 90 fL (79-100) Mean Corpuscular Hemoglobin 29 pg (25-35) Mean Corpuscular Hemoglobin Concent 32 g/dL (31-37) Red Cell Distribution Width 14.9 % (11.5-14.5) Platelet Count 222 x10^3/uL (140-400) Neutrophils (%) (Auto) 91 % (31-73) Lymphocytes (%) (Auto) 4 % (24-48) Monocytes (%) (Auto) 5 % (0-9) Eosinophils (%) (Auto) 0 % (0-3) Basophils (%) (Auto) 0 % (0-3) Neutrophils # (Auto) 15.3 x10^3/uL (1.8-7.7) Lymphocytes # (Auto) 0.7 x10^3/uL (1.0-4.8) Monocytes # (Auto) 0.9 x10^3/uL (0.0-1.1) Eosinophils # (Auto) 0.0 x10^3/uL (0.0-0.7) Basophils # (Auto) 0.0 x10^3/uL (0.0-0.2) Sodium Level 154 mmol/L (136-145) Potassium Level 5.7 mmol/L (3.5-5.1) Chloride Level 116 mmol/L (98-107) Carbon Dioxide Level 31 mmol/L (21-32) Anion Gap 7 (6-14) Blood Urea Nitrogen 45 mg/dL (8-26) Creatinine 1.7 mg/dL (0.7-1.3) Estimated GFR (Cockcroft-Gault) 52.1 Glucose Level 275 mg/dL (70-99) Calcium Level 8.6 mg/dL (8.5-10.1) Phosphorus Level 2.7 mg/dL (2.6-4.7) Magnesium Level 3.1 mg/dL (1.8-2.4) Albumin 1.9 g/dL (3.4-5.0) Test 06/18/19 04:50 06/18/19 08:12 06/18/19 08:30 06/18/19 12:40 Glucose (Fingerstick) 256 mg/dL (70-99) 270 mg/dL (70-99) 309 mg/dL (70-99) O2 Saturation 96 % (92-99) Arterial Blood pH 7.40 (7.35-7.45) Arterial Blood pCO2 at Patient Temp 44 mmHg (35-46) Arterial Blood pO2 at Patient Temp 87 mmHg (75-108) Arterial Blood HCO3 26 mmol/L (21-28) Arterial Blood Base Excess 1 mmol/L (-3-3) FiO2 40 Test 06/18/19 17:31 06/18/19 20:55 06/19/19 00:20 06/19/19 04:40 Glucose (Fingerstick) 210 mg/dL (70-99) 184 mg/dL (70-99) 233 mg/dL (70-99) 232 mg/dL (70-99) Test 06/19/19 06:15 White Blood Count 15.9 x10^3/uL (4.0-11.0) Red Blood Count 3.27 x10^6/uL (4.30-5.70) Hemoglobin 9.5 g/dL (13.0-17.5) Hematocrit 29.5 % (39.0-53.0) Mean Corpuscular Volume 90 fL (79-100) Mean Corpuscular Hemoglobin 29 pg (25-35) Mean Corpuscular Hemoglobin Concent 32 g/dL (31-37) Red Cell Distribution Width 14.7 % (11.5-14.5) Platelet Count 239 x10^3/uL (140-400) Neutrophils (%) (Auto) 93 % (31-73) Lymphocytes (%) (Auto) 4 % (24-48) Monocytes (%) (Auto) 3 % (0-9) Eosinophils (%) (Auto) 0 % (0-3) Basophils (%) (Auto) 0 % (0-3) Neutrophils # (Auto) 14.8 x10^3/uL (1.8-7.7) Lymphocytes # (Auto) 0.6 x10^3/uL (1.0-4.8) Monocytes # (Auto) 0.5 x10^3/uL (0.0-1.1) Eosinophils # (Auto) 0.0 x10^3/uL (0.0-0.7) Basophils # (Auto) 0.0 x10^3/uL (0.0-0.2) Sodium Level 159 mmol/L (136-145) Potassium Level 5.1 mmol/L (3.5-5.1) Chloride Level 122 mmol/L (98-107) Carbon Dioxide Level 32 mmol/L (21-32) Anion Gap 5 (6-14) Blood Urea Nitrogen 40 mg/dL (8-26) Creatinine 1.5 mg/dL (0.7-1.3) Estimated GFR (Cockcroft-Gault) 60.2 Glucose Level 235 mg/dL (70-99) Calcium Level 7.5 mg/dL (8.5-10.1) Phosphorus Level 2.4 mg/dL (2.6-4.7) Magnesium Level 2.8 mg/dL (1.8-2.4) Albumin 1.7 g/dL (3.4-5.0) Laboratory Tests Test 06/18/19 08:12 06/18/19 08:30 06/18/19 12:40 06/18/19 17:31 Glucose (Fingerstick) 270 mg/dL (70-99) 309 mg/dL (70-99) 210 mg/dL (70-99) O2 Saturation 96 % (92-99) Arterial Blood pH 7.40 (7.35-7.45) Arterial Blood pCO2 at Patient Temp 44 mmHg (35-46) Arterial Blood pO2 at Patient Temp 87 mmHg (75-108) Arterial Blood HCO3 26 mmol/L (21-28) Arterial Blood Base Excess 1 mmol/L (-3-3) FiO2 40 Test 06/18/19 20:55 06/19/19 00:20 06/19/19 04:40 06/19/19 06:15 Glucose (Fingerstick) 184 mg/dL (70-99) 233 mg/dL (70-99) 232 mg/dL (70-99) White Blood Count 15.9 x10^3/uL (4.0-11.0) Red Blood Count 3.27 x10^6/uL (4.30-5.70) Hemoglobin 9.5 g/dL (13.0-17.5) Hematocrit 29.5 % (39.0-53.0) Mean Corpuscular Volume 90 fL (79-100) Mean Corpuscular Hemoglobin 29 pg (25-35) Mean Corpuscular Hemoglobin Concent 32 g/dL (31-37) Red Cell Distribution Width 14.7 % (11.5-14.5) Platelet Count 239 x10^3/uL (140-400) Neutrophils (%) (Auto) 93 % (31-73) Lymphocytes (%) (Auto) 4 % (24-48) Monocytes (%) (Auto) 3 % (0-9) Eosinophils (%) (Auto) 0 % (0-3) Basophils (%) (Auto) 0 % (0-3) Neutrophils # (Auto) 14.8 x10^3/uL (1.8-7.7) Lymphocytes # (Auto) 0.6 x10^3/uL (1.0-4.8) Monocytes # (Auto) 0.5 x10^3/uL (0.0-1.1) Eosinophils # (Auto) 0.0 x10^3/uL (0.0-0.7) Basophils # (Auto) 0.0 x10^3/uL (0.0-0.2) Sodium Level 159 mmol/L (136-145) Potassium Level 5.1 mmol/L (3.5-5.1) Chloride Level 122 mmol/L (98-107) Carbon Dioxide Level 32 mmol/L (21-32) Anion Gap 5 (6-14) Blood Urea Nitrogen 40 mg/dL (8-26) Creatinine 1.5 mg/dL (0.7-1.3) Estimated GFR (Cockcroft-Gault) 60.2 Glucose Level 235 mg/dL (70-99) Calcium Level 7.5 mg/dL (8.5-10.1) Phosphorus Level 2.4 mg/dL (2.6-4.7) Magnesium Level 2.8 mg/dL (1.8-2.4) Albumin 1.7 g/dL (3.4-5.0) Microbiology 06/14/19 Blood Culture - Preliminary, Resulted NO GROWTH AFTER 4 DAYS Vitals/I & O Vital Sign - Last 24 Hours 06/18/19 06/18/19 06/18/19 06/18/19 08:30 09:00 09:32 10:00 Temp 100.2 100.4 100.2 100.4 Pulse 124 130 124 Resp 18 18 B/P (MAP) 188/108 (134) 212/124 133/69 (90) Pulse Ox 99 99 98 O2 Delivery Ventilator Ventilator Ventilator 06/18/19 06/18/19 06/18/19 06/18/19 10:15 11:00 12:00 12:00 Temp 100.2 100.2 Pulse 137 128 Resp 20 22 B/P (MAP) 176/86 (116) 126/71 (89) Pulse Ox 98 98 99 O2 Delivery Ventilator Ventilator Mechanical Ventilator Ventilator 06/18/19 06/18/19 06/18/19 06/18/19 12:20 13:00 13:52 14:00 Temp 100.2 100.2 Pulse 128 93 Resp 22 15 B/P (MAP) 126/71 (89) 118/73 (88) Pulse Ox 99 99 99 99 O2 Delivery Ventilator Ventilator Ventilator Ventilator 06/18/19 06/18/19 06/18/19 06/18/19 15:00 16:00 16:00 16:30 Temp 100.0 100.0 100.0 100.0 Pulse 98 108 Resp 16 24 B/P (MAP) 135/87 (103) 110/68 (82) Pulse Ox 97 96 99 O2 Delivery Ventilator Mechanical Ventilator Ventilator Ventilator 06/18/19 06/18/19 06/18/19 06/18/19 17:00 18:00 18:29 19:00 Temp 100.0 100.0 99.7 100.0 100.0 99.7 Pulse 92 92 86 Resp 14 14 16 B/P (MAP) 103/71 (82) 106/72 (83) 104/68 (80) Pulse Ox 100 100 100 100 O2 Delivery Ventilator Ventilator Ventilator Ventilator 06/18/19 06/18/19 06/18/19 06/18/19 20:00 20:00 20:05 20:39 Temp 99.7 99.7 Pulse 84 Resp 18 18 B/P (MAP) 103/70 (81) Pulse Ox 100 97 100 O2 Delivery Ventilator Mechanical Ventilator Ventilator Ventilator 06/18/19 06/18/19 06/18/19 06/18/19 21:00 21:00 22:00 23:00 Temp 99.7 99.3 99.3 99.7 99.3 99.3 Pulse 92 82 84 Resp 18 18 16 16 B/P (MAP) 119/60 (79) 103/67 (79) 106/67 (80) Pulse Ox 100 100 99 100 O2 Delivery Ventilator Ventilator Ventilator Ventilator 06/18/19 06/18/19 06/19/19 06/19/19 23:59 23:59 00:42 01:00 Temp 99.3 99.5 99.3 99.5 Pulse 83 85 Resp 16 16 B/P (MAP) 102/64 (77) 108/68 (81) Pulse Ox 100 100 100 O2 Delivery Mechanical Ventilator Ventilator Ventilator Ventilator 06/19/19 06/19/19 06/19/19 06/19/19 02:00 02:29 02:55 03:00 Temp 99.3 99.3 99.3 99.3 Pulse 94 88 Resp 16 16 18 18 B/P (MAP) 147/94 (111) 110/61 (77) Pulse Ox 100 100 97 97 O2 Delivery Ventilator Ventilator Ventilator 06/19/19 06/19/19 06/19/19 06/19/19 03:30 04:00 04:00 05:00 Temp 99.3 99.3 99.3 99.3 Pulse 91 91 Resp 18 18 B/P (MAP) 111/82 (92) 111/69 (83) Pulse Ox 100 98 98 O2 Delivery Ventilator Ventilator Mechanical Ventilator Ventilator 06/19/19 06/19/19 06/19/19 06/19/19 05:44 06:00 07:00 07:30 Temp 99.3 99.3 99.3 99.3 Pulse 82 82 Resp 16 16 B/P (MAP) 104/69 (81) 103/65 (78) Pulse Ox 100 98 99 100 O2 Delivery Ventilator Ventilator Ventilator Ventilator Intake and Output 06/18/19 06/18/19 06/19/19 15:00 23:00 07:00 Intake Total 350 ml 1032.22 ml 517 ml Output Total 1200 ml 680 ml 690 ml Balance -850 ml 352.22 ml -173 ml Problem List Problems Medical Problems: (1) Acute pancreatitis Status: Acute (2) Nausea & vomiting Status: Acute Assessment Biliary pancreatitis, severe with MOSF. Developing necrosis/pseudocyst? Plan of Care Note Continue support. CT early next week, sooner if condition warrants. Hemodynamically unstable?: Yes Is patient in severe pain?: Yes Is NPO status required?: Yes MARIA L CRUZ MD Jun 19, 2019 08:09
[2019-06-19] MEDS ORDERED: fentaNYL HIGH DOSE PCA 55 ML IV PRN (08:15)
--- NOTE | 2019-06-19 08:17 | PDOC ---
SUBJECTIVE ROS Intubated, sedated OBJECTIVE Vital Signs Vital Signs Date Time Temp Pulse Resp B/P (MAP) Pulse Ox O2 Delivery O2 Flow Rate FiO2 06/19/19 08:10 21 100 Ventilator 06/19/19 07:00 99.3 82 103/65 (78) 99.3 I & 0 Intake and Output 06/19/19 07:00 Intake Total 1899.22 ml Output Total 2570 ml Balance -670.78 ml IV Total 1539.22 ml Other 360 ml Output Urine Total 2420 ml Gastric Drainage Total 150 ml PHYSICAL EXAM Physical Exam GENERAL: Sedated, orally intubated on vent HEENT: OGT/ETT in place NECK: Supple LUNGS: Diminished aeration bases HEART: S1, S2, regular, no murmurs. ABDOMEN: Distended, tight, no guarding to palpation,BS hypoactive : [place] EXTREMITIES: trace edema, no cyanosis SKIN: Warm, dry. 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 IV Ca Dced 06/17 PTH and Phos wnl , Severe necrotizing pancreatitis- GS following- "will attempt to avoid necrosectomy (increased morbidity and mortality), but will consider if change in clinical situation" Sepsis from GI Acute Resp failure - intubated Metabolic acidosis- resolved COMMENT/RELEVANT DATA Meds Current Medications Medications (Trade) Dose Ordered Sig/Jesse Start Time Stop Time Status Last Admin Dose Admin Acetaminophen (Tylenol Supp) 650 mg PRN Q6HRS PRN 06/14/19 20:00 06/17/19 13:09 650 MG Albumin Human 200 ml @ 200 mls/hr 1X PRN PRN 06/14/19 09:00 06/14/19 14:59 DC 06/14/19 09:40 200 MLS/HR Amino Acids/ Electrolytes/ Dextrose 1,000 ml @ 80 mls/hr [id number] 06/12/19 10:15 06/18/19 13:50 DC Amino Acids/ Glycerin/ Electrolytes 1,000 ml @ 80 mls/hr [id number] 06/12/19 10:00 UNV Atropine Sulfate (ATROPINE 0.5mg SYRINGE) 0.5 mg PRN Q5MIN PRN 06/13/19 19:00 Calcium Chloride 2000 mg/Sodium Chloride 120 ml @ 240 mls/hr PRN QID PRN 06/14/19 10:15 06/15/19 09:58 DC 06/15/19 08:32 240 MLS/HR Calcium Gluconate 1000 mg/Sodium Chloride 110 ml @ 220 mls/hr 1X ONCE 06/12/19 19:15 06/12/19 19:44 DC 06/12/19 20:35 220 MLS/HR Calcium Gluconate 5000 mg/Sodium Chloride 250 ml @ 28.782 mls/ hr CONT PRN 06/15/19 09:30 06/18/19 13:50 DC 06/18/19 06:12 28.782 MLS/HR Calcium Gluconate 39331 mg/Sodium Chloride 494 ml @ 4.051 mls/ hr CONT PRN 06/15/19 09:30 06/15/19 09:23 DC Chlorhexidine Gluconate (Peridex) 15 ml BID 06/14/19 21:00 06/18/19 21:09 15 ML Dexmedetomidine HCl 400 mcg/ Sodium Chloride 100 ml @ 0 mls/hr CONT PRN 06/13/19 19:00 06/19/19 05:01 15.8 MLS/HR Dextrose (Dextrose 50%-Water Syringe) 12.5 gm PRN Q15MIN PRN 06/14/19 23:30 Enoxaparin Sodium (Lovenox 40mg Syringe) 40 mg Q24H 06/18/19 22:30 06/18/19 22:34 40 MG Etomidate (Amidate) 14 mg 1X ONCE 06/14/19 13:00 06/14/19 13:01 DC 06/14/19 12:59 14 MG Fentanyl Citrate (Fentanyl 2ml Vial) 100 mcg 1X ONCE 06/14/19 13:00 06/14/19 13:01 DC 06/14/19 12:58 100 MCG Fentanyl Citrate (Fentanyl 600 Mcg/30 ml [employer] MECH[employer]IC) 600 mcg STK-MED ONCE 06/15/19 05:30 06/18/19 12:07 DC Furosemide (Lasix) 40 mg 1X ONCE 06/12/19 16:00 06/12/19 16:01 DC 06/12/19 16:13 40 MG Hydralazine HCl (Apresoline Inj) 10 mg PRN Q6HRS PRN 06/11/19 18:15 06/18/19 09:32 10 MG Hydromorphone HCl (Dilaudid) 1 mg PRN Q2HRS PRN 06/11/19 12:00 06/14/19 13:00 2 MG Info (CONTRAST GIVEN -- Rx MONITORING) 1 each PRN DAILY PRN 06/11/19 04:45 06/13/19 04:44 DC Info (PHARMACY MONITORING -- do not chart) 1 each PRN DAILY PRN 06/14/19 09:00 06/14/19 09:06 DC Insulin Human Lispro (HumaLOG) 0-7 UNITS Q4HRS 06/15/19 00:15 06/19/19 04:46 2 UNITS Insulin Human Regular (HumuLIN R VIAL) 10 unit 1X ONCE 06/12/19 16:00 06/12/19 16:01 DC 06/12/19 16:14 10 UNIT Insulin Human Regular 100 unit/ Sodium Chloride 101 ml @ 0 mls/hr CONT PRN 06/13/19 14:15 06/13/19 15:03 7.07 MLS/HR Iohexol (Omnipaque 350 Mg/ml) 100 ml 1X ONCE 06/11/19 04:45 06/11/19 04:46 DC 06/11/19 05:01 100 ML Lidocaine HCl (Buffered Lidocaine 1%) 6 ml 1X ONCE 06/13/19 09:30 06/13/19 09:31 DC 06/13/19 09:23 6 ML Lidocaine HCl (Lidocaine Pf 2% Vial) 5 ml STK-MED ONCE 06/14/19 12:00 06/17/19 10:37 DC Linezolid/Dextrose 300 ml @ 300 mls/hr Q12HR 06/14/19 21:00 06/18/19 21:09 300 MLS/HR Lorazepam (Ativan Inj) 1 mg PRN Q6HRS PRN 06/11/19 18:15 06/14/19 13:00 2 MG Magnesium Sulfate 50 ml @ 25 mls/hr PRN DAILY PRN 06/14/19 10:30 Meropenem 500 mg/ Sodium Chloride 50 ml @ 100 mls/hr Q6HRS 06/18/19 07:30 06/19/19 06:23 100 MLS/HR Metoprolol Tartrate (Lopressor Vial) 5 mg 1X ONCE 06/18/19 12:15 06/18/19 12:16 DC Midazolam HCl (Versed) 5 mg 1X ONCE 06/14/19 13:00 06/14/19 13:01 DC 06/14/19 12:59 5 MG Midazolam HCl 50 mg/Sodium Chloride 50 ml @ 0 mls/hr CONT PRN 06/14/19 12:45 06/19/19 03:36 5 MLS/HR Morphine Sulfate (Morphine Sulfate) 4 mg PRN Q2HR PRN 06/11/19 05:45 06/11/19 11:54 DC 06/11/19 07:37 4 MG Nicardipine HCl 50 mg/Sodium Chloride 250 ml @ 25 mls/hr CONT PRN 06/18/19 11:45 Norepinephrine Bitartrate 8 mg/ Dextrose 258 ml @ 20.027 mls/ hr CONT PRN 06/14/19 10:30 06/14/19 10:31 20.027 MLS/HR Nystatin (Nystop) 1 devorah PRN QID PRN 06/11/19 23:15 06/11/19 23:19 1 DEVORAH Ondansetron HCl (Zofran) 4 mg PRN Q8HRS PRN 06/11/19 05:45 06/12/19 05:44 DC 06/12/19 03:29 4 MG Pantoprazole Sodium (PROTONIX VIAL for IV PUSH) 40 mg [id number] 06/13/19 21:00 06/19/19 06:23 40 MG Piperacillin Sod/ Tazobactam Sod (Zosyn Per Pharmacy) 1 each PRN DAILY PRN 06/12/19 13:15 06/12/19 19:16 DC Piperacillin Sod/ Tazobactam Sod 2.25 gm/Sodium Chloride 50 ml @ 100 mls/hr Q6HRS 06/12/19 13:30 06/12/19 19:15 DC 06/12/19 13:48 100 MLS/HR Potassium Chloride/Water 100 ml @ 100 mls/hr Q1H 06/11/19 06:00 06/11/19 07:59 DC 06/11/19 08:41 100 MLS/HR Prochlorperazine Edisylate (Compazine) 10 mg PRN Q8HRS PRN 06/11/19 12:00 06/12/19 14:59 10 MG Sodium Bicarbonate 50 meq/Sodium Chloride 1,050 ml @ 150 mls/hr Q7H 06/12/19 11:00 06/13/19 14:48 DC 06/13/19 04:16 150 MLS/HR Sodium Bicarbonate (Sodium Bicarb Adult 8.4% Syr) 50 meq 1X ONCE 06/12/19 16:00 06/12/19 16:01 DC 06/12/19 16:12 50 MEQ Sodium Chloride 1,000 ml @ 400 mls/hr Q2H30M PRN 06/14/19 08:55 06/14/19 20:54 DC Succinylcholine Chloride (Anectine) 200 mg 1X ONCE 06/14/19 13:00 06/14/19 13:01 DC 06/14/19 12:59 200 MG Lab Laboratory Tests Test 06/18/19 08:30 06/18/19 12:40 06/18/19 17:31 06/18/19 20:55 O2 Saturation 96 % (92-99) Arterial Blood pH 7.40 (7.35-7.45) Arterial Blood pCO2 at Patient Temp 44 mmHg (35-46) Arterial Blood pO2 at Patient Temp 87 mmHg (75-108) Arterial Blood HCO3 26 mmol/L (21-28) Arterial Blood Base Excess 1 mmol/L (-3-3) FiO2 40 Glucose (Fingerstick) 309 mg/dL (70-99) 210 mg/dL (70-99) 184 mg/dL (70-99) Test 06/19/19 00:20 06/19/19 04:40 06/19/19 06:15 06/19/19 07:56 Glucose (Fingerstick) 233 mg/dL (70-99) 232 mg/dL (70-99) 178 mg/dL (70-99) White Blood Count 15.9 x10^3/uL (4.0-11.0) Red Blood Count 3.27 x10^6/uL (4.30-5.70) Hemoglobin 9.5 g/dL (13.0-17.5) Hematocrit 29.5 % (39.0-53.0) Mean Corpuscular Volume 90 fL (79-100) Mean Corpuscular Hemoglobin 29 pg (25-35) Mean Corpuscular Hemoglobin Concent 32 g/dL (31-37) Red Cell Distribution Width 14.7 % (11.5-14.5) Platelet Count 239 x10^3/uL (140-400) Neutrophils (%) (Auto) 93 % (31-73) Lymphocytes (%) (Auto) 4 % (24-48) Monocytes (%) (Auto) 3 % (0-9) Eosinophils (%) (Auto) 0 % (0-3) Basophils (%) (Auto) 0 % (0-3) Neutrophils # (Auto) 14.8 x10^3/uL (1.8-7.7) Lymphocytes # (Auto) 0.6 x10^3/uL (1.0-4.8) Monocytes # (Auto) 0.5 x10^3/uL (0.0-1.1) Eosinophils # (Auto) 0.0 x10^3/uL (0.0-0.7) Basophils # (Auto) 0.0 x10^3/uL (0.0-0.2) Sodium Level 159 mmol/L (136-145) Potassium Level 5.1 mmol/L (3.5-5.1) Chloride Level 122 mmol/L (98-107) Carbon Dioxide Level 32 mmol/L (21-32) Anion Gap 5 (6-14) Blood Urea Nitrogen 40 mg/dL (8-26) Creatinine 1.5 mg/dL (0.7-1.3) Estimated GFR (Cockcroft-Gault) 60.2 Glucose Level 235 mg/dL (70-99) Calcium Level 7.5 mg/dL (8.5-10.1) Phosphorus Level 2.4 mg/dL (2.6-4.7) Magnesium Level 2.8 mg/dL (1.8-2.4) Albumin 1.7 g/dL (3.4-5.0) Results All relevant outside records, renal labs, imaging studies, telemetry/EKG's were reviewed. RANDALL GALVIN MD Jun 19, 2019 08:17
--- NOTE | 2019-06-19 08:23 | RAD ---
EXAM: CHEST 1 VIEW History: Intubation COMPARISON: 06/18/2019 TECHNIQUE: Single portable radiograph of the chest FINDINGS: The ET tube, feeding tube, right-sided dialysis catheter are unchanged. Left lung base airspace opacities likely atelectasis or infiltrate with small left pleural effusion. Mild prominent bilateral interstitial lung markings. IMPRESSION: 1.Mild bibasilar lung airspace opacities likely atelectasis or infiltrates, left greater than right ,similar to prior exam. 2. Lines and tubes unchanged. Electronically signed by: Hima Rosenbaum MD (06/19/2019 8:21 AM) [id number]
[2019-06-19 08:35] LABS: BASE EXCESS ABG 2 mmol/L (-3-3); HCO3 ABG 27 mmol/L (21-28); PCO2 ABG 41 mmHg (35-46); PO2 ABG 98 mmHg (75-108); SAT O2 ABG 97 % (92-99)
[2019-06-19 08:47] LABS: FIO2 ABG 40% VENT
--- NOTE | 2019-06-19 09:52 | PDOC ---
PULMONARY PROGRESS NOTES Subjective INTUBATED SEC TO ENCEPHALOPATHY AND DECREASE SAT AC MODE/SEDATED Vitals Vital Signs Date Time Temp Pulse Resp B/P (MAP) Pulse Ox O2 Delivery O2 Flow Rate FiO2 06/19/19 09:26 100 Ventilator 06/19/19 08:42 23 06/19/19 07:00 99.3 82 103/65 (78) 99.3 Lungs: Clear Cardiovascular: S1, S2 Abdomen: Other ( DISTENDED) Extremities: No Edema Skin: Warm Labs Laboratory Tests Test 06/17/19 10:36 06/17/19 18:34 06/17/19 18:39 06/17/19 20:31 Ionized Calcium 1.05 mmol/L (1.13-1.32) 1.09 mmol/L (1.13-1.32) Glucose (Fingerstick) 258 mg/dL (70-99) 244 mg/dL (70-99) Test 06/17/19 23:30 06/17/19 23:44 06/18/19 04:45 06/18/19 04:50 Ionized Calcium 1.11 mmol/L (1.13-1.32) 1.12 mmol/L (1.13-1.32) Glucose (Fingerstick) 264 mg/dL (70-99) 256 mg/dL (70-99) White Blood Count 16.9 x10^3/uL (4.0-11.0) Red Blood Count 3.29 x10^6/uL (4.30-5.70) Hemoglobin 9.6 g/dL (13.0-17.5) Hematocrit 29.6 % (39.0-53.0) Mean Corpuscular Volume 90 fL (79-100) Mean Corpuscular Hemoglobin 29 pg (25-35) Mean Corpuscular Hemoglobin Concent 32 g/dL (31-37) Red Cell Distribution Width 14.9 % (11.5-14.5) Platelet Count 222 x10^3/uL (140-400) Neutrophils (%) (Auto) 91 % (31-73) Lymphocytes (%) (Auto) 4 % (24-48) Monocytes (%) (Auto) 5 % (0-9) Eosinophils (%) (Auto) 0 % (0-3) Basophils (%) (Auto) 0 % (0-3) Neutrophils # (Auto) 15.3 x10^3/uL (1.8-7.7) Lymphocytes # (Auto) 0.7 x10^3/uL (1.0-4.8) Monocytes # (Auto) 0.9 x10^3/uL (0.0-1.1) Eosinophils # (Auto) 0.0 x10^3/uL (0.0-0.7) Basophils # (Auto) 0.0 x10^3/uL (0.0-0.2) Sodium Level 154 mmol/L (136-145) Potassium Level 5.7 mmol/L (3.5-5.1) Chloride Level 116 mmol/L (98-107) Carbon Dioxide Level 31 mmol/L (21-32) Anion Gap 7 (6-14) Blood Urea Nitrogen 45 mg/dL (8-26) Creatinine 1.7 mg/dL (0.7-1.3) Estimated GFR (Cockcroft-Gault) 52.1 Glucose Level 275 mg/dL (70-99) Calcium Level 8.6 mg/dL (8.5-10.1) Phosphorus Level 2.7 mg/dL (2.6-4.7) Magnesium Level 3.1 mg/dL (1.8-2.4) Albumin 1.9 g/dL (3.4-5.0) Test 06/18/19 08:12 06/18/19 08:30 06/18/19 12:40 06/18/19 17:31 Glucose (Fingerstick) 270 mg/dL (70-99) 309 mg/dL (70-99) 210 mg/dL (70-99) O2 Saturation 96 % (92-99) Arterial Blood pH 7.40 (7.35-7.45) Arterial Blood pCO2 at Patient Temp 44 mmHg (35-46) Arterial Blood pO2 at Patient Temp 87 mmHg (75-108) Arterial Blood HCO3 26 mmol/L (21-28) Arterial Blood Base Excess 1 mmol/L (-3-3) FiO2 40 Test 06/18/19 20:55 06/19/19 00:20 06/19/19 04:40 06/19/19 06:15 Glucose (Fingerstick) 184 mg/dL (70-99) 233 mg/dL (70-99) 232 mg/dL (70-99) White Blood Count 15.9 x10^3/uL (4.0-11.0) Red Blood Count 3.27 x10^6/uL (4.30-5.70) Hemoglobin 9.5 g/dL (13.0-17.5) Hematocrit 29.5 % (39.0-53.0) Mean Corpuscular Volume 90 fL (79-100) Mean Corpuscular Hemoglobin 29 pg (25-35) Mean Corpuscular Hemoglobin Concent 32 g/dL (31-37) Red Cell Distribution Width 14.7 % (11.5-14.5) Platelet Count 239 x10^3/uL (140-400) Neutrophils (%) (Auto) 93 % (31-73) Lymphocytes (%) (Auto) 4 % (24-48) Monocytes (%) (Auto) 3 % (0-9) Eosinophils (%) (Auto) 0 % (0-3) Basophils (%) (Auto) 0 % (0-3) Neutrophils # (Auto) 14.8 x10^3/uL (1.8-7.7) Lymphocytes # (Auto) 0.6 x10^3/uL (1.0-4.8) Monocytes # (Auto) 0.5 x10^3/uL (0.0-1.1) Eosinophils # (Auto) 0.0 x10^3/uL (0.0-0.7) Basophils # (Auto) 0.0 x10^3/uL (0.0-0.2) Sodium Level 159 mmol/L (136-145) Potassium Level 5.1 mmol/L (3.5-5.1) Chloride Level 122 mmol/L (98-107) Carbon Dioxide Level 32 mmol/L (21-32) Anion Gap 5 (6-14) Blood Urea Nitrogen 40 mg/dL (8-26) Creatinine 1.5 mg/dL (0.7-1.3) Estimated GFR (Cockcroft-Gault) 60.2 Glucose Level 235 mg/dL (70-99) Calcium Level 7.5 mg/dL (8.5-10.1) Phosphorus Level 2.4 mg/dL (2.6-4.7) Magnesium Level 2.8 mg/dL (1.8-2.4) Albumin 1.7 g/dL (3.4-5.0) Test 06/19/19 07:56 06/19/19 08:00 Glucose (Fingerstick) 178 mg/dL (70-99) O2 Saturation 97 % (92-99) Arterial Blood pH 7.43 (7.35-7.45) Arterial Blood pCO2 at Patient Temp 41 mmHg (35-46) Arterial Blood pO2 at Patient Temp 98 mmHg (75-108) Arterial Blood HCO3 27 mmol/L (21-28) Arterial Blood Base Excess 2 mmol/L (-3-3) FiO2 40% vent Laboratory Tests Test 06/18/19 12:40 06/18/19 17:31 06/18/19 20:55 06/19/19 00:20 Glucose (Fingerstick) 309 mg/dL (70-99) 210 mg/dL (70-99) 184 mg/dL (70-99) 233 mg/dL (70-99) Test 06/19/19 04:40 06/19/19 06:15 06/19/19 07:56 06/19/19 08:00 Glucose (Fingerstick) 232 mg/dL (70-99) 178 mg/dL (70-99) White Blood Count 15.9 x10^3/uL (4.0-11.0) Red Blood Count 3.27 x10^6/uL (4.30-5.70) Hemoglobin 9.5 g/dL (13.0-17.5) Hematocrit 29.5 % (39.0-53.0) Mean Corpuscular Volume 90 fL (79-100) Mean Corpuscular Hemoglobin 29 pg (25-35) Mean Corpuscular Hemoglobin Concent 32 g/dL (31-37) Red Cell Distribution Width 14.7 % (11.5-14.5) Platelet Count 239 x10^3/uL (140-400) Neutrophils (%) (Auto) 93 % (31-73) Lymphocytes (%) (Auto) 4 % (24-48) Monocytes (%) (Auto) 3 % (0-9) Eosinophils (%) (Auto) 0 % (0-3) Basophils (%) (Auto) 0 % (0-3) Neutrophils # (Auto) 14.8 x10^3/uL (1.8-7.7) Lymphocytes # (Auto) 0.6 x10^3/uL (1.0-4.8) Monocytes # (Auto) 0.5 x10^3/uL (0.0-1.1) Eosinophils # (Auto) 0.0 x10^3/uL (0.0-0.7) Basophils # (Auto) 0.0 x10^3/uL (0.0-0.2) Sodium Level 159 mmol/L (136-145) Potassium Level 5.1 mmol/L (3.5-5.1) Chloride Level 122 mmol/L (98-107) Carbon Dioxide Level 32 mmol/L (21-32) Anion Gap 5 (6-14) Blood Urea Nitrogen 40 mg/dL (8-26) Creatinine 1.5 mg/dL (0.7-1.3) Estimated GFR (Cockcroft-Gault) 60.2 Glucose Level 235 mg/dL (70-99) Calcium Level 7.5 mg/dL (8.5-10.1) Phosphorus Level 2.4 mg/dL (2.6-4.7) Magnesium Level 2.8 mg/dL (1.8-2.4) Albumin 1.7 g/dL (3.4-5.0) O2 Saturation 97 % (92-99) Arterial Blood pH 7.43 (7.35-7.45) Arterial Blood pCO2 at Patient Temp 41 mmHg (35-46) Arterial Blood pO2 at Patient Temp 98 mmHg (75-108) Arterial Blood HCO3 27 mmol/L (21-28) Arterial Blood Base Excess 2 mmol/L (-3-3) FiO2 40% vent Medications Active Scripts Medications Dose Route/Sig Max Daily Dose Days Date Category Comments cxr 06/18 reviewed Left basal atelectasis Impression . IMPRESSION: 1. Acute hypoxemic respiratory failure, multifactorial. 2. Acute gallstone pancreatitis./ Necrosis 3. Acute kidney failure. improving 4. Metabolic toxic encephalopathy. 5. Hyperkalemia.corrected 6. Metabolic / respiratory acidosis 7. Hypocalcemia. 8. POSSIBLE ABD COMPARTMENT SYNDROME PRESSURE 20 9. HEP B S POSITIVE 10. Hypernatremia Plan . AC MODE WILL TRY OFF SEDATION/ MAY DO CPAP TRIAL SPOKE WITH DR JARA 3/ AT [facility] / CT ABDOMEN FINDINGS DISCUSSED. I AGREE WITH CONSERVATION APPROACH AT PRESENT AND HOLDING ON SURGERY. HIGH RISK WITH SURGERY WILL NEED TO CLOSELY MONITOR CLINICALLY ABG NOTED / AC mode SUPPORT WITH ANTI BX IV FLUID PRN REPLACE CA NEEDED OVERALL PROGNOSIS IS GUARDED AT THIS TIME LIPASE IMPROVING RENAL TO F/U ON INCREASE NA D/W RN/RT TAYA PEREIRA MD Jun 19, 2019 09:52
--- NOTE | 2019-06-19 10:28 | PDOC ---
PROGRESS NOTES History of Present Illness History of Present Illness ASSESSMENT AND PLAN: Acute hypoxemic respiratory failure, Severe pancreatitis. , GALLSTONE pancreatitis hypoattenuation of the pancreas, concerning for necrosis although evaluation degraded without IV contrast. 06/16 Severe biliary pancreatitis. Resp failure Renal failure MORBID OBESITY ACUTE HYPOXIC RESP FAILURE// ARDS HYPERKALEMIA hypocalcemia per nephrology replacement TRANSAMINITIS LACTIC ACIDOSIS SEPSIS VOLUME OVERLOAD HYPERGLYCEMIA, UNCONTROLLED HYPOCALCEMIA, REPLACE PER RENAL admitted consult GI, IV fluids, p.r.n. antiemetics, home medications, deep venous thrombosis prophylaxis. Full code. nephrology consult gen surgery consult GI CONSULT O2 SUPPORT lactic acid with reflex iv zosyn per pharmacy ID CONSULT BLOOD CULT BICARB DRIP prn temp dialysis catheter PULM CONSULT INSULIN DRIP PRN HOLD SURGERY, HIGH RISK orally intubated on vent, mitts 06/17 sedated on vent D/W RN // family in room PROGNOSIS: Guarded. 36 MIN CC TIME Vitals Vitals Vital Signs Date Time Temp Pulse Resp B/P (MAP) Pulse Ox O2 Delivery O2 Flow Rate FiO2 06/19/19 09:26 100 Ventilator 06/19/19 08:42 23 06/19/19 07:00 99.3 82 103/65 (78) 99.3 Physical Exam Physical Exam GENERAL: Sedated, orally intubated on vent, mitts HEENT: Pupils equal, small. OGT/ETT in place NECK: Supple no JVD LUNGS: Diminished aeration bases HEART: S1, S2, regular, no murmurs. ABDOMEN: Distended, tight but some soft, no guarding to palpation, BS hypoactive : [place] EXTREMITIES: trace edema, no cyanosis. SCDs bilaterally SKIN: Warm, dry. 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 PRACTICE SUPPORT SPECIALIST: Sedated RIJ/HD catheter (06/13) clean General: Other (intubated/sedated ) Heart: Other (ST, rate near 125-130) Lungs: Clear Abdomen: Other (firm, distended ) Extremities: No edema Skin: No significant lesion Labs LABS Laboratory Tests Test 06/18/19 12:40 06/18/19 17:31 06/18/19 20:55 06/19/19 00:20 Glucose (Fingerstick) 309 mg/dL (70-99) 210 mg/dL (70-99) 184 mg/dL (70-99) 233 mg/dL (70-99) Test 06/19/19 04:40 06/19/19 06:15 06/19/19 07:56 06/19/19 08:00 Glucose (Fingerstick) 232 mg/dL (70-99) 178 mg/dL (70-99) White Blood Count 15.9 x10^3/uL (4.0-11.0) Red Blood Count 3.27 x10^6/uL (4.30-5.70) Hemoglobin 9.5 g/dL (13.0-17.5) Hematocrit 29.5 % (39.0-53.0) Mean Corpuscular Volume 90 fL (79-100) Mean Corpuscular Hemoglobin 29 pg (25-35) Mean Corpuscular Hemoglobin Concent 32 g/dL (31-37) Red Cell Distribution Width 14.7 % (11.5-14.5) Platelet Count 239 x10^3/uL (140-400) Neutrophils (%) (Auto) 93 % (31-73) Lymphocytes (%) (Auto) 4 % (24-48) Monocytes (%) (Auto) 3 % (0-9) Eosinophils (%) (Auto) 0 % (0-3) Basophils (%) (Auto) 0 % (0-3) Neutrophils # (Auto) 14.8 x10^3/uL (1.8-7.7) Lymphocytes # (Auto) 0.6 x10^3/uL (1.0-4.8) Monocytes # (Auto) 0.5 x10^3/uL (0.0-1.1) Eosinophils # (Auto) 0.0 x10^3/uL (0.0-0.7) Basophils # (Auto) 0.0 x10^3/uL (0.0-0.2) Sodium Level 159 mmol/L (136-145) Potassium Level 5.1 mmol/L (3.5-5.1) Chloride Level 122 mmol/L (98-107) Carbon Dioxide Level 32 mmol/L (21-32) Anion Gap 5 (6-14) Blood Urea Nitrogen 40 mg/dL (8-26) Creatinine 1.5 mg/dL (0.7-1.3) Estimated GFR (Cockcroft-Gault) 60.2 Glucose Level 235 mg/dL (70-99) Calcium Level 7.5 mg/dL (8.5-10.1) Phosphorus Level 2.4 mg/dL (2.6-4.7) Magnesium Level 2.8 mg/dL (1.8-2.4) Albumin 1.7 g/dL (3.4-5.0) O2 Saturation 97 % (92-99) Arterial Blood pH 7.43 (7.35-7.45) Arterial Blood pCO2 at Patient Temp 41 mmHg (35-46) Arterial Blood pO2 at Patient Temp 98 mmHg (75-108) Arterial Blood HCO3 27 mmol/L (21-28) Arterial Blood Base Excess 2 mmol/L (-3-3) FiO2 40% vent Assessment and Plan Assessmemt and Plan Problems Medical Problems: (1) Acute pancreatitis Status: Acute (2) Nausea & vomiting Status: Acute Comment Review of Relevant I have reviewed the following items alexandra (where applicable) has been applied. Labs Laboratory Tests Test 06/17/19 10:36 06/17/19 18:34 06/17/19 18:39 06/17/19 20:31 Ionized Calcium 1.05 mmol/L (1.13-1.32) 1.09 mmol/L (1.13-1.32) Glucose (Fingerstick) 258 mg/dL (70-99) 244 mg/dL (70-99) Test 06/17/19 23:30 06/17/19 23:44 06/18/19 04:45 06/18/19 04:50 Ionized Calcium 1.11 mmol/L (1.13-1.32) 1.12 mmol/L (1.13-1.32) Glucose (Fingerstick) 264 mg/dL (70-99) 256 mg/dL (70-99) White Blood Count 16.9 x10^3/uL (4.0-11.0) Red Blood Count 3.29 x10^6/uL (4.30-5.70) Hemoglobin 9.6 g/dL (13.0-17.5) Hematocrit 29.6 % (39.0-53.0) Mean Corpuscular Volume 90 fL (79-100) Mean Corpuscular Hemoglobin 29 pg (25-35) Mean Corpuscular Hemoglobin Concent 32 g/dL (31-37) Red Cell Distribution Width 14.9 % (11.5-14.5) Platelet Count 222 x10^3/uL (140-400) Neutrophils (%) (Auto) 91 % (31-73) Lymphocytes (%) (Auto) 4 % (24-48) Monocytes (%) (Auto) 5 % (0-9) Eosinophils (%) (Auto) 0 % (0-3) Basophils (%) (Auto) 0 % (0-3) Neutrophils # (Auto) 15.3 x10^3/uL (1.8-7.7) Lymphocytes # (Auto) 0.7 x10^3/uL (1.0-4.8) Monocytes # (Auto) 0.9 x10^3/uL (0.0-1.1) Eosinophils # (Auto) 0.0 x10^3/uL (0.0-0.7) Basophils # (Auto) 0.0 x10^3/uL (0.0-0.2) Sodium Level 154 mmol/L (136-145) Potassium Level 5.7 mmol/L (3.5-5.1) Chloride Level 116 mmol/L (98-107) Carbon Dioxide Level 31 mmol/L (21-32) Anion Gap 7 (6-14) Blood Urea Nitrogen 45 mg/dL (8-26) Creatinine 1.7 mg/dL (0.7-1.3) Estimated GFR (Cockcroft-Gault) 52.1 Glucose Level 275 mg/dL (70-99) Calcium Level 8.6 mg/dL (8.5-10.1) Phosphorus Level 2.7 mg/dL (2.6-4.7) Magnesium Level 3.1 mg/dL (1.8-2.4) Albumin 1.9 g/dL (3.4-5.0) Test 06/18/19 08:12 06/18/19 08:30 06/18/19 12:40 06/18/19 17:31 Glucose (Fingerstick) 270 mg/dL (70-99) 309 mg/dL (70-99) 210 mg/dL (70-99) O2 Saturation 96 % (92-99) Arterial Blood pH 7.40 (7.35-7.45) Arterial Blood pCO2 at Patient Temp 44 mmHg (35-46) Arterial Blood pO2 at Patient Temp 87 mmHg (75-108) Arterial Blood HCO3 26 mmol/L (21-28) Arterial Blood Base Excess 1 mmol/L (-3-3) FiO2 40 Test 06/18/19 20:55 06/19/19 00:20 06/19/19 04:40 06/19/19 06:15 Glucose (Fingerstick) 184 mg/dL (70-99) 233 mg/dL (70-99) 232 mg/dL (70-99) White Blood Count 15.9 x10^3/uL (4.0-11.0) Red Blood Count 3.27 x10^6/uL (4.30-5.70) Hemoglobin 9.5 g/dL (13.0-17.5) Hematocrit 29.5 % (39.0-53.0) Mean Corpuscular Volume 90 fL (79-100) Mean Corpuscular Hemoglobin 29 pg (25-35) Mean Corpuscular Hemoglobin Concent 32 g/dL (31-37) Red Cell Distribution Width 14.7 % (11.5-14.5) Platelet Count 239 x10^3/uL (140-400) Neutrophils (%) (Auto) 93 % (31-73) Lymphocytes (%) (Auto) 4 % (24-48) Monocytes (%) (Auto) 3 % (0-9) Eosinophils (%) (Auto) 0 % (0-3) Basophils (%) (Auto) 0 % (0-3) Neutrophils # (Auto) 14.8 x10^3/uL (1.8-7.7) Lymphocytes # (Auto) 0.6 x10^3/uL (1.0-4.8) Monocytes # (Auto) 0.5 x10^3/uL (0.0-1.1) Eosinophils # (Auto) 0.0 x10^3/uL (0.0-0.7) Basophils # (Auto) 0.0 x10^3/uL (0.0-0.2) Sodium Level 159 mmol/L (136-145) Potassium Level 5.1 mmol/L (3.5-5.1) Chloride Level 122 mmol/L (98-107) Carbon Dioxide Level 32 mmol/L (21-32) Anion Gap 5 (6-14) Blood Urea Nitrogen 40 mg/dL (8-26) Creatinine 1.5 mg/dL (0.7-1.3) Estimated GFR (Cockcroft-Gault) 60.2 Glucose Level 235 mg/dL (70-99) Calcium Level 7.5 mg/dL (8.5-10.1) Phosphorus Level 2.4 mg/dL (2.6-4.7) Magnesium Level 2.8 mg/dL (1.8-2.4) Albumin 1.7 g/dL (3.4-5.0) Test 06/19/19 07:56 06/19/19 08:00 Glucose (Fingerstick) 178 mg/dL (70-99) O2 Saturation 97 % (92-99) Arterial Blood pH 7.43 (7.35-7.45) Arterial Blood pCO2 at Patient Temp 41 mmHg (35-46) Arterial Blood pO2 at Patient Temp 98 mmHg (75-108) Arterial Blood HCO3 27 mmol/L (21-28) Arterial Blood Base Excess 2 mmol/L (-3-3) FiO2 40% vent Laboratory Tests Test 06/18/19 12:40 06/18/19 17:31 06/18/19 20:55 06/19/19 00:20 Glucose (Fingerstick) 309 mg/dL (70-99) 210 mg/dL (70-99) 184 mg/dL (70-99) 233 mg/dL (70-99) Test 06/19/19 04:40 06/19/19 06:15 06/19/19 07:56 06/19/19 08:00 Glucose (Fingerstick) 232 mg/dL (70-99) 178 mg/dL (70-99) White Blood Count 15.9 x10^3/uL (4.0-11.0) Red Blood Count 3.27 x10^6/uL (4.30-5.70) Hemoglobin 9.5 g/dL (13.0-17.5) Hematocrit 29.5 % (39.0-53.0) Mean Corpuscular Volume 90 fL (79-100) Mean Corpuscular Hemoglobin 29 pg (25-35) Mean Corpuscular Hemoglobin Concent 32 g/dL (31-37) Red Cell Distribution Width 14.7 % (11.5-14.5) Platelet Count 239 x10^3/uL (140-400) Neutrophils (%) (Auto) 93 % (31-73) Lymphocytes (%) (Auto) 4 % (24-48) Monocytes (%) (Auto) 3 % (0-9) Eosinophils (%) (Auto) 0 % (0-3) Basophils (%) (Auto) 0 % (0-3) Neutrophils # (Auto) 14.8 x10^3/uL (1.8-7.7) Lymphocytes # (Auto) 0.6 x10^3/uL (1.0-4.8) Monocytes # (Auto) 0.5 x10^3/uL (0.0-1.1) Eosinophils # (Auto) 0.0 x10^3/uL (0.0-0.7) Basophils # (Auto) 0.0 x10^3/uL (0.0-0.2) Sodium Level 159 mmol/L (136-145) Potassium Level 5.1 mmol/L (3.5-5.1) Chloride Level 122 mmol/L (98-107) Carbon Dioxide Level 32 mmol/L (21-32) Anion Gap 5 (6-14) Blood Urea Nitrogen 40 mg/dL (8-26) Creatinine 1.5 mg/dL (0.7-1.3) Estimated GFR (Cockcroft-Gault) 60.2 Glucose Level 235 mg/dL (70-99) Calcium Level 7.5 mg/dL (8.5-10.1) Phosphorus Level 2.4 mg/dL (2.6-4.7) Magnesium Level 2.8 mg/dL (1.8-2.4) Albumin 1.7 g/dL (3.4-5.0) O2 Saturation 97 % (92-99) Arterial Blood pH 7.43 (7.35-7.45) Arterial Blood pCO2 at Patient Temp 41 mmHg (35-46) Arterial Blood pO2 at Patient Temp 98 mmHg (75-108) Arterial Blood HCO3 27 mmol/L (21-28) Arterial Blood Base Excess 2 mmol/L (-3-3) FiO2 40% vent Microbiology 06/14/19 Blood Culture - Preliminary, Resulted NO GROWTH AFTER 4 DAYS Medications Current Medications Morphine Sulfate (Morphine Sulfate) 4 mg PRN Q15MIN PRN IV/SQ PAIN GREATER THAN 3/10 Last administered on 06/11/19at 04:58; Start 06/11/19 at 04:30; Stop 06/11 at 16:47; Status DC Sodium Chloride 1,000 ml @ 1,000 mls/hr Q1H IV Last administered on 06/11/19at 04:34; Start 06/11/19 at 04:30; Stop 06/11/19 at 05:29; Status DC Ondansetron HCl (Zofran) 4 mg 1X ONCE IV Last administered on 06/11/19at 04:33; Start 06/11/19 at 04:30; Stop 06/11/19 at 04:33; Status DC Iohexol (Omnipaque 350 Mg/ml) 100 ml 1X ONCE IV Last administered on 06/11/19at 05:01; Start 06/11/19 at 04:45; Stop 06/11/19 at 04:46; Status DC Info (CONTRAST GIVEN -- Rx MONITORING) 1 each PRN DAILY PRN MC SEE COMMENTS; Start 06/11/19 at 04:45; Stop 06/13/19 at 04:44; Status DC Fentanyl Citrate (Fentanyl 2ml Vial) 100 mcg STK-MED ONCE .ROUTE ; Start 06/11/19 at 04:42; Stop 06/11/19 at 04:42; Status DC Fentanyl Citrate (Fentanyl 2ml Vial) 50 mcg 1X ONCE IVP Last administered on 06/11/19at 04:45; Start 06/11/19 at 05:00; Stop 06/11/19 at 05:01; Status DC Ondansetron HCl (Zofran) 4 mg PRN Q8HRS PRN IV NAUSEA/VOMITING Last administered on 06/12/19at 03:29; Start 06/11/19 at 05:45; Stop 06/12/19 at 05:44; Status DC Morphine Sulfate (Morphine Sulfate) 4 mg PRN Q2HR PRN IV PAIN Last administered on 06/11/19at 07:37; Start 06/11/19 at 05:45; Stop 06/11/19 at 11:54; Status DC Sodium Chloride 1,000 ml @ 150 mls/hr Q6H40M IV Last administered on 06/12/19at 03:28; Start 06/11/19 at 05:45; Stop 06/12/19 at 11:01; Status DC Hydromorphone HCl (Dilaudid) 0.5 mg PRN Q3HRS PRN IV PAIN Last administered on 06/11/19 08:38; Start 06/11/19 at 05:45; Stop 06/11/19 at 09:12; Status DC Potassium Chloride/Water 100 ml @ 100 mls/hr Q1H IV Last administered on 06/11/19at 08:41; Start 06/11/19 at 06:00; Stop 06/11/19 at 07:59; Status DC Hydromorphone HCl (Dilaudid) 1 mg PRN Q3HRS PRN IV PAIN Last administered on 06/11/19 09:29; Start 06/11/19 at 09:15; Stop 06/11/19 at 11:54; Status DC Prochlorperazine Edisylate (Compazine) 10 mg PRN Q8HRS PRN IV NAUSEA/VOMITING Last administered on 06/12/19at 14:59; Start 06/11/19 at 12:00 Hydromorphone HCl (Dilaudid) 1 mg PRN Q2HRS PRN IV PAIN Last administered on 06/14/19 13:00; Start 06/11/19 at 12:00 Pantoprazole Sodium (PROTONIX VIAL for IV PUSH) 40 mg DAILYAC IVP Last administered on 06/12/19at 08:29; Start 06/11/19 at 15:00; Stop 06/12/19 at 16:23; Status DC Lorazepam (Ativan Inj) 1 mg PRN Q6HRS PRN IVP ANXIETY / AGITATION Last administered on 06/14/19at 13:00; Start 06/11/19 at 18:15 Hydralazine HCl (Apresoline Inj) 10 mg PRN Q6HRS PRN IVP ELEVATED BP, SEE COMMENTS Last administered on 06/18/19at 09:32; Start 06/11/19 at 18:15 Nystatin (Nystop) 1 devorah PRN QID PRN TP FUNGAL RASH Last administered on 06/11/19at 23:19; Start 06/11/19 at 23:15 Sodium Chloride 1,000 ml @ 1,000 mls/hr 1X ONCE IV Last administered on 06/12/19at 05:27; Start 06/12/19 at 06:00; Stop 06/12/19 at 06:59; Status DC Sodium Chloride 1,000 ml @ 1,000 mls/hr 1X ONCE IV Last administered on 06/12/19at 05:25; Start 06/12/19 at 05:00; Stop 06/12/19 at 05:59; Status DC Sodium Chloride 1,000 ml @ 200 mls/hr Q5H IV Last administered on 06/12/19at 06:36; Start 06/12/19 at 07:00; Stop 06/12/19 at 11:01; Status DC Sodium Bicarbonate 50 meq/Sodium Chloride 1,050 ml @ 150 mls/hr Q7H IV Last administered on 06/13/19at 04:16; Start 06/12/19 at 11:00; Stop 06/13/19 at 14:48; Status DC Amino Acids/ Glycerin/ Electrolytes 1,000 ml @ 80 mls/hr [id number] IV ; Start 06/12/19 at 10:00; Status UNV Amino Acids/ Electrolytes/ Dextrose 1,000 ml @ 80 mls/hr [id number] IV ; Start 06/12/19 at 10:15; Stop 06/18/19 at 13:50; Status DC Piperacillin Sod/ Tazobactam Sod (Zosyn Per Pharmacy) 1 each PRN DAILY PRN MC SEE COMMENTS; Start 06/12/19 at 13:15; Stop 06/12/19 at 19:16; Status DC Piperacillin Sod/ Tazobactam Sod 2.25 gm/Sodium Chloride 50 ml @ 100 mls/hr Q6HRS IV Last administered on 06/12/19at 13:48; Start 06/12/19 at 13:30; Stop 06/12/19 at 19:15; Status DC Sodium Bicarbonate (Sodium Bicarb Adult 8.4% Syr) 50 meq 1X ONCE IV Last administered on 06/12/19at 16:12; Start 06/12/19 at 16:00; Stop 06/12/19 at 16:01; Status DC Calcium Gluconate 1000 mg/Sodium Chloride 110 ml @ 220 mls/hr 1X ONCE IV Last administered on 06/12/19at 16:13; Start 06/12/19 at 16:00; Stop 06/12/19 at 16:29; Status DC Dextrose (Dextrose 50%-Water Syringe) 25 gm 1X ONCE IV Last administered on 06/12/19at 16:13; Start 06/12/19 at 16:00; Stop 06/12/19 at 16:01; Status DC Insulin Human Regular (HumuLIN R VIAL) 10 unit 1X ONCE IV Last administered on 06/12/19at 16:14; Start 06/12/19 at 16:00; Stop 06/12/19 at 16:01; Status DC Furosemide (Lasix) 40 mg 1X ONCE IVP Last administered on 06/12/19at 16:13; Start 06/12/19 at 16:00; Stop 06/12/19 at 16:01; Status DC Pantoprazole Sodium (PROTONIX VIAL for IV PUSH) 40 mg [id number] IVP Last administered on 06/13/19at 06:21; Start 06/12/19 at 18:00; Stop 06/13/19 at 18:49; Status DC Meropenem 500 mg/ Sodium Chloride 50 ml @ 100 mls/hr Q12HR IV Last administered on 06/17/19at 20:59; Start 06/12/19 at 21:00; Stop 06/18/19 at 07:26; Status DC Calcium Gluconate 1000 mg/Sodium Chloride 110 ml @ 220 mls/hr 1X ONCE IV Last administered on 06/12/19at 20:35; Start 06/12/19 at 19:15; Stop 06/12/19 at 19:44; Status DC Lidocaine HCl (Buffered Lidocaine 1%) 3 ml STK-MED ONCE .ROUTE ; Start 06/13/19 at 08:47; Stop 06/13/19 at 08:47; Status DC Lidocaine HCl (Buffered Lidocaine 1%) 6 ml 1X ONCE INJ Last administered on 06/13/19at 09:23; Start 06/13/19 at 09:30; Stop 06/13/19 at 09:31; Status DC Insulin Human Lispro (HumaLOG) 0-7 UNITS TIDWMEALS SQ Last administered on 06/13/19at 12:14; Start 06/13/19 at 12:00; Stop 06/14/19 at 23:29; Status DC Dextrose (Dextrose 50%-Water Syringe) 12.5 gm PRN Q15MIN PRN IV SEE COMMENTS; Start 06/13/19 at 11:15; Stop 06/14/19 at 23:29; Status DC Insulin Human Regular 100 unit/ Sodium Chloride 101 ml @ 0 mls/hr CONT PRN IV SEE I/O RECORD Last administered on 06/13/19at 15:03; Start 06/13/19 at 14:15 Sodium Chloride 1,000 ml @ 1,000 mls/hr Q1H PRN IV hypotension; Start 06/13/19 at 14:00; Stop 06/13/19 at 19:59; Status DC Sodium Chloride 1,000 ml @ 400 mls/hr Q2H30M PRN IV PATENCY; Start 06/13/19 at 14:00; Stop 06/14/19 at 01:59; Status DC Info (PHARMACY MONITORING -- do not chart) 1 each PRN DAILY PRN MC SEE COMMENTS; Start 06/13/19 at 14:45; Stop 06/13/19 at 14:51; Status DC Info (PHARMACY MONITORING -- do not chart) 1 each PRN DAILY PRN MC SEE COMMENTS; Start 06/13/19 at 14:45 Pantoprazole Sodium (PROTONIX VIAL for IV PUSH) 40 mg [id number] IVP Last administered on 06/19/19at 06:23; Start 06/13/19 at 21:00 Dexmedetomidine HCl 400 mcg/ Sodium Chloride 100 ml @ 0 mls/hr CONT PRN IV PER PROTOCOL Last administered on 06/19/19at 05:01; Start 06/13/19 at 19:00 Sodium Chloride 500 ml @ 500 mls/hr 1X PRN PRN IV SEE COMMENTS; Start 06/13/19 at 19:00 Atropine Sulfate (ATROPINE 0.5mg SYRINGE) 0.5 mg PRN Q5MIN PRN IV SEE COMMENTS; Start 06/13/19 at 19:00 Sodium Chloride 1,000 ml @ 1,000 mls/hr Q1H PRN IV hypotension; Start 06/14/19 at 08:55; Stop 06/14/19 at 14:54; Status DC Albumin Human 200 ml @ 200 mls/hr 1X PRN PRN IV Hypotension Last administered on 06/14/19at 09:40; Start 06/14/19 at 09:00; Stop 06/14/19 at 14:59; Status DC Sodium Chloride 1,000 ml @ 400 mls/hr Q2H30M PRN IV PATENCY; Start 06/14/19 at 08:55; Stop 06/14/19 at 20:54; Status DC Info (PHARMACY MONITORING -- do not chart) 1 each PRN DAILY PRN MC SEE COMMENTS ; Start 06/14/19 at 09:00; Stop 06/14/19 at 09:06; Status DC Info (PHARMACY MONITORING -- do not chart) 1 each PRN DAILY PRN MC SEE COMMENTS; Start 06/14/19 at 09:00; Stop 06/14/19 at 09:06; Status DC Calcium Chloride 2000 mg/Sodium Chloride 120 ml @ 240 mls/hr PRN QID PRN IV for CALCIUM < 5.8 Last administered on 06/15/19at 08:32; Start 06/14/19 at 10:15; Stop 06/15/19 at 09:58; Status DC Magnesium Sulfate 50 ml @ 25 mls/hr PRN DAILY PRN IV for Mag < 1.7 on am labs; Start 06/14/19 at 10:30 Norepinephrine Bitartrate 8 mg/ Dextrose 258 ml @ 20.027 mls/ hr CONT PRN IV PER PROTOCOL Last administered on 06/14/19at 10:31; Start 06/14/19 at 10:30 Succinylcholine Chloride (Anectine) 200 mg STK-MED ONCE .ROUTE ; Start 06/14/19 at 12:22; Stop 06/14/19 at 12:23; Status DC Etomidate (Amidate) 20 mg STK-MED ONCE IV ; Start 06/14/19 at 12:22; Stop 06/14/19 at 12:23; Status DC Fentanyl Citrate 30 ml @ 0 mls/hr CONT PRN IV SEE PROTOCOL Last administered on 06/19/19at 08:10; Start 06/14/19 at 12:45; Stop 06/19/19 at 11:00 Chlorhexidine Gluconate (Peridex) 15 ml BID MM Last administered on 06/18/19at 21:09; Start 06/14/19 at 21:00 Midazolam HCl 50 mg/Sodium Chloride 50 ml @ 0 mls/hr CONT PRN IV SEE PROTOCOL Last administered on 06/19/19at 03:36; Start 06/14/19 at 12:45 Midazolam HCl (Versed) 5 mg STK-MED ONCE .ROUTE ; Start 06/14/19 at 12:48; Stop 06/14/19 at 12:48; Status DC Fentanyl Citrate (Fentanyl 2ml Vial) 100 mcg STK-MED ONCE .ROUTE ; Start 06/14/19 at 12:48; Stop 06/14/19 at 12:48; Status DC Midazolam HCl (Versed) 5 mg 1X ONCE IV Last administered on 06/14/19at 12:59; Start 06/14/19 at 13:00; Stop 06/14/19 at 13:01; Status DC Fentanyl Citrate (Fentanyl 2ml Vial) 100 mcg 1X ONCE IM Last administered on 06/14/19at 12:58; Start 06/14/19 at 13:00; Stop 06/14/19 at 13:01; Status DC Succinylcholine Chloride (Anectine) 200 mg 1X ONCE IV Last administered on 06/14/19at 12:59; Start 06/14/19 at 13:00; Stop 06/14/19 at 13:01; Status DC Etomidate (Amidate) 14 mg 1X ONCE IV Last administered on 06/14/19at 12:59; Start 06/14/19 at 13:00; Stop 06/14/19 at 13:01; Status DC Acetaminophen (Tylenol Supp) 650 mg PRN Q6HRS PRN NV MILD PAIN / TEMP Last a dministered on 06/17/19at 13:09; Start 06/14/19 at 20:00 Linezolid/Dextrose 300 ml @ 300 mls/hr Q12HR IV Last administered on 06/19/19at 08:42; Start 06/14/19 at 21:00 Insulin Human Lispro (HumaLOG) 0-7 UNITS TIDWMEALS SQ ; Start 06/15/19 at 08:00; Stop 06/15/19 at 00:03; Status DC Dextrose (Dextrose 50%-Water Syringe) 12.5 gm PRN Q15MIN PRN IV SEE COMMENTS; Start 06/14/19 at 23:30 Insulin Human Lispro (HumaLOG) 0-7 UNITS Q4HRS SQ Last administered on 06/19/19at 04:46; Start 06/15/19 at 00:15 Calcium Gluconate 63736 mg/Sodium Chloride 494 ml @ 4.051 mls/ hr CONT PRN IV SYMPTOMATIC HYPOCALCEMIA; Start 06/15/19 at 09:30; Stop 06/15/19 at 09:23; Status DC Calcium Gluconate 5000 mg/Sodium Chloride 260 ml @ 5.543 mls/ hr CONT PRN IV SYMPTOMATIC HYPOCALCEMIA; Start 06/15/19 at 09:30; Stop 06/15/19 at 09:26; Status DC Calcium Gluconate 5000 mg/Sodium Chloride 260 ml @ 5.543 mls/ hr CONT PRN IV SYMPTOMATIC HYPOCALCEMIA; Start 06/15/19 at 09:30; Stop 06/15/19 at 09:29; Status DC Calcium Gluconate 5000 mg/Sodium Chloride 250 ml @ 28.782 mls/ hr CONT PRN IV SYMPTOMATIC HYPOCALCEMIA Last administered on 06/18/19at 06:12; Start 06/15/19 at 09:30; Stop 06/18/19 at 13:50; Status DC Lidocaine HCl (Lidocaine Pf 2% Vial) 5 ml STK-MED ONCE .ROUTE ; Start 06/14/19 at 12:00; Stop 06/17/19 at 10:37; Status DC Meropenem 500 mg/ Sodium Chloride 50 ml @ 100 mls/hr Q6HRS IV Last administered on 06/19/19at 06:23; Start 06/18/19 at 07:30 Nicardipine HCl 50 mg/Sodium Chloride 250 ml @ 25 mls/hr CONT PRN IV SEE I/O RECORD; Start 06/18/19 at 11:45 Metoprolol Tartrate (Lopressor Vial) 5 mg 1X ONCE IVP ; Start 06/18/19 at 12:15; Stop 06/18/19 at 12:16; Status DC Fentanyl Citrate (Fentanyl 600 Mcg/30 ml [employer]) 600 mcg STK-MED ONCE IV ; Start 06/15/19 at 05:30; Stop 06/18/19 at 12:07; Status DC Enoxaparin Sodium (Lovenox 40mg Syringe) 40 mg Q24H SQ Last administered on 06/18/19at 22:34; Start 06/18/19 at 22:30 Fentanyl Citrate 55 ml @ 1.98 mls/hr CONT PRN IV SEE PROTOCOL; Start 06/19/19 at 08:15 Active Scripts Active Vitals/I & O Vital Sign - Last 24 Hours 06/18/19 06/18/19 06/18/19 06/18/19 11:00 12:00 12:00 12:20 Temp 100.2 100.2 Pulse 137 128 Resp 20 22 B/P (MAP) 176/86 (116) 126/71 (89) Pulse Ox 98 99 99 O2 Delivery Ventilator Mechanical Ventilator Ventilator Ventilator 06/18/19 06/18/19 06/18/19 06/18/19 13:00 13:52 14:00 15:00 Temp 100.2 100.0 100.2 100.0 Pulse 128 93 98 Resp 22 15 16 B/P (MAP) 126/71 (89) 118/73 (88) 135/87 (103) Pulse Ox 99 99 99 97 O2 Delivery Ventilator Ventilator Ventilator Ventilator 06/18/19 06/18/19 06/18/19 06/18/19 16:00 16:00 16:30 17:00 Temp 100.0 100.0 100.0 100.0 Pulse 108 92 Resp 14 B/P (MAP) 110/68 (82) 103/71 (82) Pulse Ox 96 99 100 O2 Delivery Mechanical Ventilator Ventilator Ventilator Ventilator 06/18/19 06/18/19 06/18/19 06/18/19 18:00 18:29 19:00 20:00 Temp 100.0 99.7 99.7 100.0 99.7 99.7 Pulse 92 86 84 Resp 14 16 18 B/P (MAP) 106/72 (83) 104/68 (80) 103/70 (81) Pulse Ox 100 100 100 100 O2 Delivery Ventilator Ventilator Ventilator Ventilator 06/18/19 06/18/19 06/18/19 06/18/19 20:00 20:05 20:39 21:00 Resp 18 18 Pulse Ox 97 100 100 O2 Delivery Mechanical Ventilator Ventilator Ventilator Ventilator 06/18/19 06/18/19 06/18/19 06/18/19 21:00 22:00 23:00 23:59 Temp 99.7 99.3 99.3 99.7 99.3 99.3 Pulse 92 82 84 Resp 18 16 16 B/P (MAP) 119/60 (79) 103/67 (79) 106/67 (80) Pulse Ox 100 99 100 O2 Delivery Ventilator Ventilator Ventilator Mechanical Ventilator 06/18/19 06/19/19 06/19/19 06/19/19 23:59 00:42 01:00 02:00 Temp 99.3 99.5 99.3 99.3 99.5 99.3 Pulse 83 85 94 Resp 16 16 16 B/P (MAP) 102/64 (77) 108/68 (81) 147/94 (111) Pulse Ox 100 100 100 100 O2 Delivery Ventilator Ventilator Ventilator Ventilator 06/19/19 06/19/19 06/19/19 06/19/19 02:29 02:55 03:00 03:30 Temp 99.3 99.3 Pulse 88 Resp 16 18 18 B/P (MAP) 110/61 (77) Pulse Ox 100 97 97 100 O2 Delivery Ventilator Ventilator Ventilator 06/19/19 06/19/19 06/19/19 06/19/19 04:00 04:00 05:00 05:44 Temp 99.3 99.3 99.3 99.3 Pulse 91 91 Resp 18 18 B/P (MAP) 111/82 (92) 111/69 (83) Pulse Ox 98 98 100 O2 Delivery Ventilator Mechanical Ventilator Ventilator Ventilator 06/19/19 06/19/19 06/19/19 06/19/19 06:00 07:00 07:30 08:10 Temp 99.3 99.3 99.3 99.3 Pulse 82 82 Resp 16 16 21 B/P (MAP) 104/69 (81) 103/65 (78) Pulse Ox 98 99 100 100 O2 Delivery Ventilator Ventilator Ventilator Ventilator 06/19/19 06/19/19 08:42 09:26 Resp 23 Pulse Ox 88 100 O2 Delivery Ventilator Ventilator Intake and Output 06/18/19 06/18/19 06/19/19 14:59 22:59 06:59 Intake Total 350 ml 1032.22 ml 517 ml Output Total 1125 ml 860 ml 760 ml Balance -775 ml 172.22 ml -243 ml Hemodynamically unstable?: Yes Is patient in severe pain?: Yes Is NPO status required?: Yes JERSON AVILES MD Jun 19, 2019 10:28
--- NOTE | 2019-06-19 11:46 | PDOC ---
CARDIO Progress Notes Date and Time Date of Service 06/19/19 Time of Evaluation 1140 Subjective Subjective: Other (intubated/sedated) Vitals Vitals Vital Signs Date Time Temp Pulse Resp B/P (MAP) Pulse Ox O2 Delivery O2 Flow Rate FiO2 06/19/19 09:26 100 Ventilator 06/19/19 08:42 23 06/19/19 07:00 99.3 82 103/65 (78) 99.3 Weight Weight [ ] Input and Output Intake and Output Intake and Output 06/19/19 07:00 Intake Total 1899.22 ml Output Total 2680 ml Balance -780.78 ml IV Total 1539.22 ml Other 360 ml Output Urine Total 2530 ml Gastric Drainage Total 150 ml Laboratory Labs Laboratory Tests Test 06/18/19 12:40 06/18/19 17:31 06/18/19 20:55 06/19/19 00:20 Glucose (Fingerstick) 309 mg/dL (70-99) 210 mg/dL (70-99) 184 mg/dL (70-99) 233 mg/dL (70-99) Test 06/19/19 04:40 06/19/19 06:15 06/19/19 07:56 06/19/19 08:00 Glucose (Fingerstick) 232 mg/dL (70-99) 178 mg/dL (70-99) White Blood Count 15.9 x10^3/uL (4.0-11.0) Red Blood Count 3.27 x10^6/uL (4.30-5.70) Hemoglobin 9.5 g/dL (13.0-17.5) Hematocrit 29.5 % (39.0-53.0) Mean Corpuscular Volume 90 fL (79-100) Mean Corpuscular Hemoglobin 29 pg (25-35) Mean Corpuscular Hemoglobin Concent 32 g/dL (31-37) Red Cell Distribution Width 14.7 % (11.5-14.5) Platelet Count 239 x10^3/uL (140-400) Neutrophils (%) (Auto) 93 % (31-73) Lymphocytes (%) (Auto) 4 % (24-48) Monocytes (%) (Auto) 3 % (0-9) Eosinophils (%) (Auto) 0 % (0-3) Basophils (%) (Auto) 0 % (0-3) Neutrophils # (Auto) 14.8 x10^3/uL (1.8-7.7) Lymphocytes # (Auto) 0.6 x10^3/uL (1.0-4.8) Monocytes # (Auto) 0.5 x10^3/uL (0.0-1.1) Eosinophils # (Auto) 0.0 x10^3/uL (0.0-0.7) Basophils # (Auto) 0.0 x10^3/uL (0.0-0.2) Sodium Level 159 mmol/L (136-145) Potassium Level 5.1 mmol/L (3.5-5.1) Chloride Level 122 mmol/L (98-107) Carbon Dioxide Level 32 mmol/L (21-32) Anion Gap 5 (6-14) Blood Urea Nitrogen 40 mg/dL (8-26) Creatinine 1.5 mg/dL (0.7-1.3) Estimated GFR (Cockcroft-Gault) 60.2 Glucose Level 235 mg/dL (70-99) Calcium Level 7.5 mg/dL (8.5-10.1) Phosphorus Level 2.4 mg/dL (2.6-4.7) Magnesium Level 2.8 mg/dL (1.8-2.4) Albumin 1.7 g/dL (3.4-5.0) O2 Saturation 97 % (92-99) Arterial Blood pH 7.43 (7.35-7.45) Arterial Blood pCO2 at Patient Temp 41 mmHg (35-46) Arterial Blood pO2 at Patient Temp 98 mmHg (75-108) Arterial Blood HCO3 27 mmol/L (21-28) Arterial Blood Base Excess 2 mmol/L (-3-3) FiO2 40% vent Microbiology Micro Microbiology 06/14/19 Blood Culture - Preliminary, Resulted NO GROWTH AFTER 4 DAYS Physical Exam HEENT: Neck Supple W Full Motion Chest: Symmetric LUNGS: Other (mechanical vent ) Heart: S1S2, RRR, other (distant heart tones ) Abdomen: Other (distended, firm) Extremities: No Edema Neurology: other (sedated) Assessment Assessment 1. Gallstone pancreatitis, now with necrosis; surgical team following. high risk for surgery 2. Acute respiratory failure s/p intubation 3. Leukocytosis, lactic acidosis, fevers 4. Tachycardia, sinus; physiologic secondary to above. HR improved, maintaining SR today 5. Hypertensive urgency; BP improved 6. FABIOLA, hyperkalemia; improved 7. Hep B 8. Metabolic/toxic encephalopathy Recommendations Hydralazine, Labetalol IV PRN for BP control Supportive care from a CV standpoint No further CV workup at this time ANETTE FITZGERALD APRN Jun 19, 2019 11:46
[2019-06-19] MEDS: CHLORHEXIDINE 0.12% 15 ML MOUTHWASH. MM SCH ×2 (12:09→20:55)
--- NOTE | 2019-06-19 12:12 | RAD ---
Study: PORTABLE CHEST 1V Indication: Central line placement. Comparison: 06/19/2019 at 0637 hours. Findings: Unchanged positioning of a large bore right central venous catheter. An additional right sided central venous catheter has been placed in the interim with the tip terminating at the superior cavoatrial junction. Endotracheal tube tip terminates proxy 4.2 cm from the kang. Unchanged positioning of an enteric tube. Unchanged low lung volumes and apparent prominence of the cardiomediastinal silhouette and marcelino. Haziness at the left more so than right lung bases is not significantly different. No newly seen pneumothorax or localized infiltrate. Impression: 1. Newly placed right-sided central venous catheter with the tip terminating at the superior cavoatrial junction. The additional support devices are unchanged. 2. No significant interval change in the appearance of the cardiomediastinal silhouette and lungs. Electronically signed by: JOHN CASAS MD (06/19/2019 12:09 PM) [id number]
--- NOTE | 2019-06-19 12:49 | PDOC ---
SURGICAL PROGRESS NOTE Subjective Pt intubated and sedated, making good UOP Vital Signs Vital Signs Date Time Temp Pulse Resp B/P (MAP) Pulse Ox O2 Delivery O2 Flow Rate FiO2 06/19/19 12:00 Mechanical Ventilator 06/19/19 12:00 100.4 85 20 151/96 (114) 98 100.4 I&O Intake and Output 06/19/19 06:59 Intake Total 1899.22 ml Output Total 2745 ml Balance -845.78 ml IV Total 1539.22 ml Other 360 ml Output Urine Total 2595 ml Gastric Drainage Total 150 ml General: No acute distress Abdomen: Soft, Other (distended, NTTP) Labs Laboratory Tests Test 06/17/19 18:34 06/17/19 18:39 06/17/19 20:31 06/17/19 23:30 Glucose (Fingerstick) 258 mg/dL (70-99) 244 mg/dL (70-99) Ionized Calcium 1.09 mmol/L (1.13-1.32) 1.11 mmol/L (1.13-1.32) Test 06/17/19 23:44 06/18/19 04:45 06/18/19 04:50 06/18/19 08:12 Glucose (Fingerstick) 264 mg/dL (70-99) 256 mg/dL (70-99) 270 mg/dL (70-99) White Blood Count 16.9 x10^3/uL (4.0-11.0) Red Blood Count 3.29 x10^6/uL (4.30-5.70) Hemoglobin 9.6 g/dL (13.0-17.5) Hematocrit 29.6 % (39.0-53.0) Mean Corpuscular Volume 90 fL (79-100) Mean Corpuscular Hemoglobin 29 pg (25-35) Mean Corpuscular Hemoglobin Concent 32 g/dL (31-37) Red Cell Distribution Width 14.9 % (11.5-14.5) Platelet Count 222 x10^3/uL (140-400) Neutrophils (%) (Auto) 91 % (31-73) Lymphocytes (%) (Auto) 4 % (24-48) Monocytes (%) (Auto) 5 % (0-9) Eosinophils (%) (Auto) 0 % (0-3) Basophils (%) (Auto) 0 % (0-3) Neutrophils # (Auto) 15.3 x10^3/uL (1.8-7.7) Lymphocytes # (Auto) 0.7 x10^3/uL (1.0-4.8) Monocytes # (Auto) 0.9 x10^3/uL (0.0-1.1) Eosinophils # (Auto) 0.0 x10^3/uL (0.0-0.7) Basophils # (Auto) 0.0 x10^3/uL (0.0-0.2) Sodium Level 154 mmol/L (136-145) Potassium Level 5.7 mmol/L (3.5-5.1) Chloride Level 116 mmol/L (98-107) Carbon Dioxide Level 31 mmol/L (21-32) Anion Gap 7 (6-14) Blood Urea Nitrogen 45 mg/dL (8-26) Creatinine 1.7 mg/dL (0.7-1.3) Estimated GFR (Cockcroft-Gault) 52.1 Glucose Level 275 mg/dL (70-99) Calcium Level 8.6 mg/dL (8.5-10.1) Ionized Calcium 1.12 mmol/L (1.13-1.32) Phosphorus Level 2.7 mg/dL (2.6-4.7) Magnesium Level 3.1 mg/dL (1.8-2.4) Albumin 1.9 g/dL (3.4-5.0) Test 06/18/19 08:30 06/18/19 12:40 06/18/19 17:31 06/18/19 20:55 O2 Saturation 96 % (92-99) Arterial Blood pH 7.40 (7.35-7.45) Arterial Blood pCO2 at Patient Temp 44 mmHg (35-46) Arterial Blood pO2 at Patient Temp 87 mmHg (75-108) Arterial Blood HCO3 26 mmol/L (21-28) Arterial Blood Base Excess 1 mmol/L (-3-3) FiO2 40 Glucose (Fingerstick) 309 mg/dL (70-99) 210 mg/dL (70-99) 184 mg/dL (70-99) Test 06/19/19 00:20 06/19/19 04:40 06/19/19 06:15 06/19/19 07:56 Glucose (Fingerstick) 233 mg/dL (70-99) 232 mg/dL (70-99) 178 mg/dL (70-99) White Blood Count 15.9 x10^3/uL (4.0-11.0) Red Blood Count 3.27 x10^6/uL (4.30-5.70) Hemoglobin 9.5 g/dL (13.0-17.5) Hematocrit 29.5 % (39.0-53.0) Mean Corpuscular Volume 90 fL (79-100) Mean Corpuscular Hemoglobin 29 pg (25-35) Mean Corpuscular Hemoglobin Concent 32 g/dL (31-37) Red Cell Distribution Width 14.7 % (11.5-14.5) Platelet Count 239 x10^3/uL (140-400) Neutrophils (%) (Auto) 93 % (31-73) Lymphocytes (%) (Auto) 4 % (24-48) Monocytes (%) (Auto) 3 % (0-9) Eosinophils (%) (Auto) 0 % (0-3) Basophils (%) (Auto) 0 % (0-3) Neutrophils # (Auto) 14.8 x10^3/uL (1.8-7.7) Lymphocytes # (Auto) 0.6 x10^3/uL (1.0-4.8) Monocytes # (Auto) 0.5 x10^3/uL (0.0-1.1) Eosinophils # (Auto) 0.0 x10^3/uL (0.0-0.7) Basophils # (Auto) 0.0 x10^3/uL (0.0-0.2) Sodium Level 159 mmol/L (136-145) Potassium Level 5.1 mmol/L (3.5-5.1) Chloride Level 122 mmol/L (98-107) Carbon Dioxide Level 32 mmol/L (21-32) Anion Gap 5 (6-14) Blood Urea Nitrogen 40 mg/dL (8-26) Creatinine 1.5 mg/dL (0.7-1.3) Estimated GFR (Cockcroft-Gault) 60.2 Glucose Level 235 mg/dL (70-99) Calcium Level 7.5 mg/dL (8.5-10.1) Phosphorus Level 2.4 mg/dL (2.6-4.7) Magnesium Level 2.8 mg/dL (1.8-2.4) Albumin 1.7 g/dL (3.4-5.0) Triglycerides Level 216 mg/dL (0-150) Test 06/19/19 08:00 06/19/19 12:08 O2 Saturation 97 % (92-99) Arterial Blood pH 7.43 (7.35-7.45) Arterial Blood pCO2 at Patient Temp 41 mmHg (35-46) Arterial Blood pO2 at Patient Temp 98 mmHg (75-108) Arterial Blood HCO3 27 mmol/L (21-28) Arterial Blood Base Excess 2 mmol/L (-3-3) FiO2 40% vent Glucose (Fingerstick) 252 mg/dL (70-99) Laboratory Tests Test 06/18/19 17:31 06/18/19 20:55 06/19/19 00:20 06/19/19 04:40 Glucose (Fingerstick) 210 mg/dL (70-99) 184 mg/dL (70-99) 233 mg/dL (70-99) 232 mg/dL (70-99) Test 06/19/19 06:15 06/19/19 07:56 06/19/19 08:00 06/19/19 12:08 White Blood Count 15.9 x10^3/uL (4.0-11.0) Red Blood Count 3.27 x10^6/uL (4.30-5.70) Hemoglobin 9.5 g/dL (13.0-17.5) Hematocrit 29.5 % (39.0-53.0) Mean Corpuscular Volume 90 fL (79-100) Mean Corpuscular Hemoglobin 29 pg (25-35) Mean Corpuscular Hemoglobin Concent 32 g/dL (31-37) Red Cell Distribution Width 14.7 % (11.5-14.5) Platelet Count 239 x10^3/uL (140-400) Neutrophils (%) (Auto) 93 % (31-73) Lymphocytes (%) (Auto) 4 % (24-48) Monocytes (%) (Auto) 3 % (0-9) Eosinophils (%) (Auto) 0 % (0-3) Basophils (%) (Auto) 0 % (0-3) Neutrophils # (Auto) 14.8 x10^3/uL (1.8-7.7) Lymphocytes # (Auto) 0.6 x10^3/uL (1.0-4.8) Monocytes # (Auto) 0.5 x10^3/uL (0.0-1.1) Eosinophils # (Auto) 0.0 x10^3/uL (0.0-0.7) Basophils # (Auto) 0.0 x10^3/uL (0.0-0.2) Sodium Level 159 mmol/L (136-145) Potassium Level 5.1 mmol/L (3.5-5.1) Chloride Level 122 mmol/L (98-107) Carbon Dioxide Level 32 mmol/L (21-32) Anion Gap 5 (6-14) Blood Urea Nitrogen 40 mg/dL (8-26) Creatinine 1.5 mg/dL (0.7-1.3) Estimated GFR (Cockcroft-Gault) 60.2 Glucose Level 235 mg/dL (70-99) Calcium Level 7.5 mg/dL (8.5-10.1) Phosphorus Level 2.4 mg/dL (2.6-4.7) Magnesium Level 2.8 mg/dL (1.8-2.4) Albumin 1.7 g/dL (3.4-5.0) Triglycerides Level 216 mg/dL (0-150) Glucose (Fingerstick) 178 mg/dL (70-99) 252 mg/dL (70-99) O2 Saturation 97 % (92-99) Arterial Blood pH 7.43 (7.35-7.45) Arterial Blood pCO2 at Patient Temp 41 mmHg (35-46) Arterial Blood pO2 at Patient Temp 98 mmHg (75-108) Arterial Blood HCO3 27 mmol/L (21-28) Arterial Blood Base Excess 2 mmol/L (-3-3) FiO2 40% vent Problem List Problems Medical Problems: (1) Acute pancreatitis Status: Acute (2) Nausea & vomiting Status: Acute Assessment/Plan cont supportive care no current surgical plans. KARLA CALL MD Jun 19, 2019 12:49
[2019-06-19] MEDS: LABETALOL 20 MG/4 ML DISP.SYRIN. IVP PRN (13:47)
[2019-06-19] MEDS: ACETAMINOPHEN 650 MG SUPP.RECT. PR PRN (14:54)
[2019-06-19] MEDS: TPN PER PHARMACY MC PRN (16:41)
--- NOTE | 2019-06-19 16:42 | NUR ---
Pharmacy TPN Dosing Note S: CHRISTOPHER NEWSOME is a 49 year old M Currently receiving Central Continuous TPN started 06/19/19 B:Pertinent PMH: PANCREATITIS Height: 5 feet, 9 inches Weight: 100.8 kg Current diet: NPO LABS: Sodium: 159 Potassium: 5.1 Chloride: 122 Calcium: 7.5 Corrected Calcium: 9.34 Magnesium: 2.8 CO2: 32 SCr: 1.5 Glucose: 178-252 Albumin: 1.7 AST: ALT: TPN FORMULA: TPN TYPE: Central Continuous AMINO ACIDS: 100 gm DEXTROSE: 200 gm LIPIDS: 20 gm SODIUM CHLORIDE: mEq SODIUM ACETATE: mEq SODIUM PHOSPHATE: mmol POTASSIUM CHLORIDE: mEq POTASSIUM ACETATE: mEq POTASSIUM PHOSPHATE: 13.6 mmol MAGNESIUM: 10 mEq CALCIUM: 20 mEq INSULIN: units MULTIPLE VITAMIN: 10 ml TRACE ELEMENTS: MTE 5 0.5 ML ml(s) TPN PLAN: PT WITH NECROTIZING PANCREATITIS. SEVERE LOW CALCIUM EARLIER IN STAY, NOW NORMALIZED. NOW WITH HYPERNATREMIA, TO HAVE FREE WATER FLUSHES PER NG STARTED. MACROS PER DIETARY. NA-FREE, KCL-FREE TPN. HIGH (20 MEQ) CALCIUM IN TPN DUE TO PRIOR HYPOCALCEMIA. NORMAL AMOUNT OF KPHOS TO PROTECT AGAINST REFEEDING. HIGH VOLUME FOR EXTRA FREE WATER. CAUTIOUS ADMINISTRATION OF FAT IN PANCREATITIS AND CHECK TRIG FREQUENTLY; TRIG 216 TODAY. BMP/MAG/PHOS TOMORROW. R: Begin TPN ABOVE. Will monitor electrolytes, glucose, and tolerance to TPN. RENEE EVERETT [facility], 06/19/19 [id number]
--- NOTE | 2019-06-19 18:17 | NUR ---
Sedation vacation started at 0900, Versed and Fentanyl turned off. Gave patient 10 of Versed at 1130 during central line placement. Patient opens eyes to voice around 1500 but unable to follow commands. At 1700 RR in the 30's, BP elevated in 190's. Unable to calm patient with Precedex bolus. At 1730 sedation restarted at half the previous dose. I did increase the Precedex from 0.6 to 1mcg. Currently VSS, Will monitor.
[2019-06-19] MEDS ORDERED: DEXTROSE 70% IV SCH ×8 (22:00)
[2019-06-19] MEDS ORDERED: TOTAL PARENTERAL NUTRITION IV SCH ×8 (22:00)
[2019-06-19] MEDS ORDERED: [UNRECOGNIZED DRUG - OTHER] IV SCH ×8 (22:00)
[2019-06-19] MEDS ORDERED: AMINO ACID IV SCH ×8 (22:00)
[2019-06-19] MEDS: ENOXAPARIN 40 MG/0.4 ML SYRINGE. SQ SCH (22:10)
[2019-06-20] VITALS (24 sets, daily range): BP systolic 90–161; BP diastolic 53–94
[2019-06-20] MEDS: MEROPENEM 500 MG in IV NORMAL SALINE 50ML 50 ML IV SCH ×4 (00:34→17:43)
[2019-06-20] MEDS: INSULIN LISPRO 300 UNITS/3 ML VIAL. SQ SCH ×6 (00:37→20:07)
[2019-06-20] MEDS: DEXMEDETOMIDINE 400 MCG in IV NORMAL SALINE 100ML 96 ML IV PRN ×8 (00:56→20:44)
[2019-06-20] MEDS: PANTOPRAZOLE IV PUSH 40 MG VIAL. IVP SCH ×2 (05:58→17:44)
[2019-06-20] MEDS: MIDAZOLAM HCL 50 MG in IV NORMAL SALINE 50ML 50 ML IV PRN ×2 (06:21→21:56)
--- NOTE | 2019-06-20 06:32 | RAD ---
PORTABLE CHEST 1V History: Ventilator. Respiratory failure. Comparison: June 19, 2019 Findings: Low lung volumes. Patchy bibasilar opacities, unchanged. Small left pleural effusion, unchanged. Unchanged heart size. Stable endotracheal tube, enteric tube and right IJ central lines. Impression: 1. No significant interval change compared to prior. Electronically signed by: Khurram Fuast DO (06/20/2019 6:29 AM) [id number]
[2019-06-20 06:55] LABS: BASO % 0 % (0-3); EOS % 0 % (0-3); HEMOGLOBIN 9.4 g/dL (13.0-17.5); LYMPH # 0.7 x10^3/uL (1.0-4.8); LYMPH % 4 % (24-48); MEAN CORPUSCULAR HEMOGLOBIN 29 pg (25-35); MEAN CORPUSCULAR HGB CONC 32 g/dL (31-37); MEAN CORPUSCULAR VOLUME 90 fL (79-100); MONO # 0.5 x10^3/uL (0.0-1.1); MONO % 3 % (0-9); NEUT % 93 % (31-73); PLATELET COUNT 246 x10^3/uL (140-400); RED BLOOD COUNT 3.22 x10^6/uL (4.30-5.70); RED CELL DISTRIBUTION WIDTH 14.8 % (11.5-14.5); WHITE BLOOD COUNT 16.2 x10^3/uL (4.0-11.0)
[2019-06-20 07:10] LABS: ALBUMIN 1.6 g/dL (3.4-5.0); CALCIUM 7.2 mg/dL (8.5-10.1); CREATININE 1.6 mg/dL (0.7-1.3); GFR 55.9; PHOSPHORUS 2.8 mg/dL (2.6-4.7); POTASSIUM 4.8 mmol/L (3.5-5.1)
--- NOTE | 2019-06-20 07:45 | PDOC ---
Infectious Disease Note Subjective Subjective Intubated, FiO2 40% 5 PEEP Sedated BC repeated and Zyvox added Vital Sign Vital Signs Vital Signs Date Time Temp Pulse Resp B/P (MAP) Pulse Ox O2 Delivery O2 Flow Rate FiO2 06/20/19 07:00 72 16 90/53 (65) 100 Ventilator 06/20/19 04:00 99.1 99.1 Physical Exam PHYSICAL EXAM GENERAL: Sedated, orally intubated on vent, mitts HEENT: Pupils equal, small. OGT/ETT in place NECK: Supple no JVD LUNGS: Diminished aeration bases HEART: S1, S2, regular, no murmurs. ABDOMEN: Distended, tight but some soft, no guarding to palpation, BS hypoactive : [place] EXTREMITIES: trace edema, no cyanosis. SCDs bilaterally SKIN: Warm, dry. 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 [employer]ER: Sedated RIJ/HD catheter (06/13) - replaced 06/18 Labs Lab Laboratory Tests Test 06/19/19 07:56 06/19/19 08:00 06/19/19 12:08 06/19/19 15:50 Glucose (Fingerstick) 178 mg/dL (70-99) 252 mg/dL (70-99) 219 mg/dL (70-99) O2 Saturation 97 % (92-99) Arterial Blood pH 7.43 (7.35-7.45) Arterial Blood pCO2 at Patient Temp 41 mmHg (35-46) Arterial Blood pO2 at Patient Temp 98 mmHg (75-108) Arterial Blood HCO3 27 mmol/L (21-28) Arterial Blood Base Excess 2 mmol/L (-3-3) FiO2 40% vent Test 06/19/19 19:55 06/20/19 00:27 06/20/19 04:18 06/20/19 06:20 Glucose (Fingerstick) 197 mg/dL (70-99) 276 mg/dL (70-99) 283 mg/dL (70-99) White Blood Count 16.2 x10^3/uL (4.0-11.0) Red Blood Count 3.22 x10^6/uL (4.30-5.70) Hemoglobin 9.4 g/dL (13.0-17.5) Hematocrit 29.0 % (39.0-53.0) Mean Corpuscular Volume 90 fL (79-100) Mean Corpuscular Hemoglobin 29 pg (25-35) Mean Corpuscular Hemoglobin Concent 32 g/dL (31-37) Red Cell Distribution Width 14.8 % (11.5-14.5) Platelet Count 246 x10^3/uL (140-400) Neutrophils (%) (Auto) 93 % (31-73) Lymphocytes (%) (Auto) 4 % (24-48) Monocytes (%) (Auto) 3 % (0-9) Eosinophils (%) (Auto) 0 % (0-3) Basophils (%) (Auto) 0 % (0-3) Neutrophils # (Auto) 15.0 x10^3/uL (1.8-7.7) Lymphocytes # (Auto) 0.7 x10^3/uL (1.0-4.8) Monocytes # (Auto) 0.5 x10^3/uL (0.0-1.1) Eosinophils # (Auto) 0.0 x10^3/uL (0.0-0.7) Basophils # (Auto) 0.0 x10^3/uL (0.0-0.2) Sodium Level 153 mmol/L (136-145) Potassium Level 4.8 mmol/L (3.5-5.1) Chloride Level 119 mmol/L (98-107) Carbon Dioxide Level 30 mmol/L (21-32) Anion Gap 4 (6-14) Blood Urea Nitrogen 41 mg/dL (8-26) Creatinine 1.6 mg/dL (0.7-1.3) Estimated GFR (Cockcroft-Gault) 55.9 Glucose Level 345 mg/dL (70-99) Calcium Level 7.2 mg/dL (8.5-10.1) Phosphorus Level 2.8 mg/dL (2.6-4.7) Magnesium Level 2.9 mg/dL (1.8-2.4) Albumin 1.6 g/dL (3.4-5.0) Micro CT 3/2 Lower chest: Moderate left and small right pleural effusions with adjacent atelectasis. Abdomen and pelvis: Severe findings of pancreatitis. Diffuse hypoattenuation of the pancreas, concerning for necrosis. Evaluation degraded without IV contrast. Fluid collection along the inferior aspect of the stomach measures 9.6 x 4.0 cm. Loculated fluid collection along the anterior aspect of the pancreas measures 3.0 x 2.6 cm. Severe inflammatory changes extending inferiorly. Small perihepatic free fluid. Bilateral perinephric inflammatory changes. Cholelithiasis. The liver, spleen, adrenal glands and kidneys are unremarkable noncontrast appearance. No hydronephrosis. Regions of colonic wall thickening, likely reactive. Normal appendix. Enteric tube within the stomach. No evidence of small bowel obstruction. Duodenal proximal jejunal wall thickening, likely reactive. Multiple enlarged mesenteric lymph nodes.. Catheter within the urinary bladder. Mild body wall edema. Impression: 1. Increased severe pancreatitis with extensive inflammatory changes and hypoattenuation of the pancreas, concerning for necrosis although evaluation degraded without IV contrast. 2. New fluid collection along the inferior aspect of the stomach and anterior aspect of the pancreas. 3. Increased multifocal colonic and small bowel wall thickening, likely reactive. 4. New small perihepatic free fluid. 5. Cholelithiasis. 6. Mesenteric lymphadenopathy, likely reactive. 7. Moderate left and small right pleural effusion with adjacent atelectasis. Microbiology 06/14/19 Blood Culture - Preliminary, Resulted NO GROWTH AFTER 1 DAY Objective Assessment Fever - better Leukocytosis - mild increase - ? reactive with new line 3/5 ? Ileus - has been elevated for 3 days now Gallbladder stone pancreatitis - lipase 475 06/15.- better. CT 06/15 - Fluid collection along the inferior aspect of the stomach measures 9.6 x 4.0 cm. Loculated fluid collection along the anterior aspect of the pancreas measures 3.0 x 2.6 cm - Per Surgery . Sepsis from GI - cult neg Acute Resp failure - intubated Lactic acidosis. Acute kidney injury previously requiring dialysis - now with improved UOP, HDC (06/13) Metabolic acidosis. Hypocalcemia Basilar atelectasis. Plan Plan of Care Clinically stable. but still WBC - increased - ? leukomoid/s/p new line 3/5/ileus. Will check blood cults times 2 and add Micafungin for now and can de-escalate based on results Continue empiric merrem - increased dose 06/17 Zyvox added Reviewed GI and surgical notes CBC in am Renal, GI and General Surgery/Pulm following. BC neg to date Maintain aspiration precaution. D/w nursing Critically ill D/w 06/15 LE CROWLEY MD Jun 20, 2019 07:45
[2019-06-20 07:54] LABS: BASE EXCESS ABG 1 mmol/L (-3-3); HCO3 ABG 26 mmol/L (21-28); PCO2 ABG 41 mmHg (35-46); PO2 ABG 105 mmHg (75-108); SAT O2 ABG 97 % (92-99)
[2019-06-20] MEDS: CHLORHEXIDINE 0.12% 15 ML MOUTHWASH. MM SCH ×2 (08:07→20:43)
--- NOTE | 2019-06-20 09:20 | PDOC ---
SUBJECTIVE ROS Intubated, no new concerns OBJECTIVE Vital Signs Vital Signs Date Time Temp Pulse Resp B/P (MAP) Pulse Ox O2 Delivery O2 Flow Rate FiO2 06/20/19 07:40 100 Ventilator 06/20/19 07:00 72 16 90/53 (65) 06/20/19 04:00 99.1 99.1 I & 0 Intake and Output 06/20/19 07:00 Intake Total 2725.16 ml Output Total 2240 ml Balance 485.16 ml IV Total 2245.16 ml Other 480 ml Output Urine Total 2240 ml PHYSICAL EXAM Physical Exam GENERAL: Sedated, orally intubated on vent HEENT: OGT/ETT in place NECK: Supple LUNGS: Diminished aeration bases HEART: S1, S2, regular, no murmurs. ABDOMEN: Distended, tight, no guarding to palpation,BS hypoactive : [place] EXTREMITIES: trace edema, no cyanosis SKIN: Warm, dry. 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 IV Ca Dced 06/17 PTH and Phos wnl , Severe necrotizing pancreatitis- GS following- "will attempt to avoid necrosectomy (increased morbidity and mortality), but will consider if change in clinical situation" Sepsis from GI Acute Resp failure - intubated Metabolic acidosis- resolved COMMENT/RELEVANT DATA Meds Current Medications Medications (Trade) Dose Ordered Sig/Jesse Start Time Stop Time Status Last Admin Dose Admin Acetaminophen (Tylenol Supp) 650 mg PRN Q6HRS PRN 06/14/19 20:00 06/19/19 14:54 650 MG Albumin Human 200 ml @ 200 mls/hr 1X PRN PRN 06/14/19 09:00 06/14/19 14:59 DC 06/14/19 09:40 200 MLS/HR Amino Acids/ Electrolytes/ Dextrose 1,000 ml @ 80 mls/hr [id number] 06/12/19 10:15 06/18/19 13:50 DC Amino Acids/ Glycerin/ Electrolytes 1,000 ml @ 80 mls/hr [id number] 06/12/19 10:00 UNV Atropine Sulfate (ATROPINE 0.5mg SYRINGE) 0.5 mg PRN Q5MIN PRN 06/13/19 19:00 Calcium Chloride 2000 mg/Sodium Chloride 120 ml @ 240 mls/hr PRN QID PRN 06/14/19 10:15 06/15/19 09:58 DC 06/15/19 08:32 240 MLS/HR Calcium Gluconate 1000 mg/Sodium Chloride 110 ml @ 220 mls/hr 1X ONCE 06/12/19 19:15 06/12/19 19:44 DC 06/12/19 20:35 220 MLS/HR Calcium Gluconate 5000 mg/Sodium Chloride 250 ml @ 28.782 mls/ hr CONT PRN 06/15/19 09:30 06/18/19 13:50 DC 06/18/19 06:12 28.782 MLS/HR Calcium Gluconate 75562 mg/Sodium Chloride 494 ml @ 4.051 mls/ hr CONT PRN 06/15/19 09:30 06/15/19 09:23 DC Chlorhexidine Gluconate (Peridex) 15 ml BID 06/14/19 21:00 06/20/19 08:07 15 ML Dexmedetomidine HCl 400 mcg/ Sodium Chloride 100 ml @ 0 mls/hr CONT PRN 06/13/19 19:00 06/20/19 06:57 26.3 MLS/HR Dextrose (Dextrose 50%-Water Syringe) 12.5 gm PRN Q15MIN PRN 06/14/19 23:30 Enoxaparin Sodium (Lovenox 40mg Syringe) 40 mg Q24H 06/18/19 22:30 06/19/19 22:10 40 MG Etomidate (Amidate) 14 mg 1X ONCE 06/14/19 13:00 06/14/19 13:01 DC 06/14/19 12:59 14 MG Fentanyl Citrate 30 ml @ 0 mls/hr CONT PRN 06/19/19 18:00 06/20/19 06:20 2.5 MLS/HR Fentanyl Citrate (Fentanyl 2ml Vial) 100 mcg 1X ONCE 06/14/19 13:00 06/14/19 13:01 DC 2/29/20 12:58 100 MCG Fentanyl Citrate (Fentanyl 600 Mcg/30 ml PROCESS CAMERA OPERATOR) 600 mcg STK-MED ONCE 06/15/19 05:30 06/18/19 12:07 DC Furosemide (Lasix) 40 mg 1X ONCE 06/12/19 16:00 06/12/19 16:01 DC 06/12/19 16:13 40 MG Hydralazine HCl (Apresoline Inj) 10 mg PRN Q4HRS PRN 06/19/19 11:45 Hydromorphone HCl (Dilaudid) 1 mg PRN Q2HRS PRN 06/11/19 12:00 06/14/19 13:00 2 MG Info (CONTRAST GIVEN -- Rx MONITORING) 1 each PRN DAILY PRN 06/11/19 04:45 06/13/19 04:44 DC Info (PHARMACY MONITORING -- do not chart) 1 each PRN DAILY PRN 06/14/19 09:00 06/14/19 09:06 DC Info (Tpn Per Pharmacy) 1 each PRN DAILY PRN 06/19/19 11:15 06/19/19 16:41 1 EACH Insulin Human Lispro (HumaLOG) 0-7 UNITS Q4HRS 06/15/19 00:15 06/20/19 08:10 7 UNITS Insulin Human Regular (HumuLIN R VIAL) 10 unit 1X ONCE 06/12/19 16:00 06/12/19 16:01 DC 06/12/19 16:14 10 UNIT Insulin Human Regular 100 unit/ Sodium Chloride 101 ml @ 0 mls/hr CONT PRN 06/13/19 14:15 06/13/19 15:03 7.07 MLS/HR Iohexol (Omnipaque 350 Mg/ml) 100 ml 1X ONCE 06/11/19 04:45 06/11/19 04:46 DC 06/11/19 05:01 100 ML Labetalol HCl (Normodyne Iv Push) 20 mg PRN Q2HR PRN 06/19/19 11:45 Lidocaine HCl (Buffered Lidocaine 1%) 6 ml 1X ONCE 06/13/19 09:30 06/13/19 09:31 DC 06/13/19 09:23 6 ML Lidocaine HCl (Lidocaine Pf 2% Vial) 5 ml STK-MED ONCE 06/14/19 12:00 06/17/19 10:37 DC Linezolid/Dextrose 300 ml @ 300 mls/hr Q12HR 06/14/19 21:00 06/20/19 08:07 300 MLS/HR Lorazepam (Ativan Inj) 1 mg PRN Q6HRS PRN 06/11/19 18:15 06/14/19 13:00 2 MG Magnesium Sulfate 50 ml @ 25 mls/hr PRN DAILY PRN 06/14/19 10:30 Meropenem 500 mg/ Sodium Chloride 50 ml @ 100 mls/hr Q6HRS 06/18/19 07:30 06/20/19 05:58 100 MLS/HR Metoprolol Tartrate (Lopressor Vial) 5 mg 1X ONCE 06/18/19 12:15 06/18/19 12:16 DC Micafungin Sodium 100 mg/Dextrose 100 ml @ 100 mls/hr Q24H 06/20/19 09:00 Midazolam HCl (Versed) 5 mg 1X ONCE 06/14/19 13:00 06/14/19 13:01 DC 06/14/19 12:59 5 MG Midazolam HCl 50 mg/Sodium Chloride 50 ml @ 0 mls/hr CONT PRN 06/14/19 12:45 06/20/19 06:21 3 MLS/HR Morphine Sulfate (Morphine Sulfate) 4 mg PRN Q2HR PRN 06/11/19 05:45 06/11/19 11:54 DC 06/11/19 07:37 4 MG Nicardipine HCl 50 mg/Sodium Chloride 250 ml @ 25 mls/hr CONT PRN 06/18/19 11:45 Norepinephrine Bitartrate 8 mg/ Dextrose 258 ml @ 20.027 mls/ hr CONT PRN 06/14/19 10:30 06/14/19 10:31 20.027 MLS/HR Nystatin (Nystop) 1 devorah PRN QID PRN 06/11/19 23:15 06/11/19 23:19 1 DEVORAH Ondansetron HCl (Zofran) 4 mg PRN Q8HRS PRN 06/11/19 05:45 06/12/19 05:44 DC 06/12/19 03:29 4 MG Pantoprazole Sodium (PROTONIX VIAL for IV PUSH) 40 mg [id number] 06/13/19 21:00 06/20/19 05:58 40 MG Piperacillin Sod/ Tazobactam Sod (Zosyn Per Pharmacy) 1 each PRN DAILY PRN 06/12/19 13:15 06/12/19 19:16 DC Piperacillin Sod/ Tazobactam Sod 2.25 gm/Sodium Chloride 50 ml @ 100 mls/hr Q6HRS 06/12/19 13:30 06/12/19 19:15 DC 06/12/19 13:48 100 MLS/HR Potassium Chloride/Water 100 ml @ 100 mls/hr Q1H 06/11/19 06:00 06/11/19 07:59 DC 06/11/19 08:41 100 MLS/HR Potassium Phosphate 13.6 mmol/Magnesium Sulfate 10 meq/ Calcium Gluconate 20 meq/ Multivitamins 10 ml/Chromium/ Copper/Manganese/ Seleni/Zn 0.5 ml/ Total Parenteral Nutrition/Amino Acids/Dextrose/ Fat Emulsion Intravenous 1,920 ml @ 80 mls/hr TPN CONT 06/19/19 22:00 06/20/19 21:59 06/19/19 21:31 80 MLS/HR Prochlorperazine Edisylate (Compazine) 10 mg PRN Q8HRS PRN 06/11/19 12:00 06/12/19 14:59 10 MG Sodium Bicarbonate 50 meq/Sodium Chloride 1,050 ml @ 150 mls/hr Q7H 06/12/19 11:00 06/13/19 14:48 DC 06/13/19 04:16 150 MLS/HR Sodium Bicarbonate (Sodium Bicarb Adult 8.4% Syr) 50 meq 1X ONCE 06/12/19 16:00 06/12/19 16:01 DC 06/12/19 16:12 50 MEQ Sodium Chloride 1,000 ml @ 400 mls/hr Q2H30M PRN 06/14/19 08:55 06/14/19 20:54 DC Succinylcholine Chloride (Anectine) 200 mg 1X ONCE 06/14/19 13:00 06/14/19 13:01 DC 06/14/19 12:59 200 MG Lab Laboratory Tests Test 06/19/19 12:08 06/19/19 15:50 06/19/19 19:55 06/20/19 00:27 Glucose (Fingerstick) 252 mg/dL (70-99) 219 mg/dL (70-99) 197 mg/dL (70-99) 276 mg/dL (70-99) Test 06/20/19 04:18 06/20/19 06:20 06/20/19 07:34 Glucose (Fingerstick) 283 mg/dL (70-99) 325 mg/dL (70-99) White Blood Count 16.2 x10^3/uL (4.0-11.0) Red Blood Count 3.22 x10^6/uL (4.30-5.70) Hemoglobin 9.4 g/dL (13.0-17.5) Hematocrit 29.0 % (39.0-53.0) Mean Corpuscular Volume 90 fL (79-100) Mean Corpuscular Hemoglobin 29 pg (25-35) Mean Corpuscular Hemoglobin Concent 32 g/dL (31-37) Red Cell Distribution Width 14.8 % (11.5-14.5) Platelet Count 246 x10^3/uL (140-400) Neutrophils (%) (Auto) 93 % (31-73) Lymphocytes (%) (Auto) 4 % (24-48) Monocytes (%) (Auto) 3 % (0-9) Eosinophils (%) (Auto) 0 % (0-3) Basophils (%) (Auto) 0 % (0-3) Neutrophils # (Auto) 15.0 x10^3/uL (1.8-7.7) Lymphocytes # (Auto) 0.7 x10^3/uL (1.0-4.8) Monocytes # (Auto) 0.5 x10^3/uL (0.0-1.1) Eosinophils # (Auto) 0.0 x10^3/uL (0.0-0.7) Basophils # (Auto) 0.0 x10^3/uL (0.0-0.2) Sodium Level 153 mmol/L (136-145) Potassium Level 4.8 mmol/L (3.5-5.1) Chloride Level 119 mmol/L (98-107) Carbon Dioxide Level 30 mmol/L (21-32) Anion Gap 4 (6-14) Blood Urea Nitrogen 41 mg/dL (8-26) Creatinine 1.6 mg/dL (0.7-1.3) Estimated GFR (Cockcroft-Gault) 55.9 Glucose Level 345 mg/dL (70-99) Calcium Level 7.2 mg/dL (8.5-10.1) Phosphorus Level 2.8 mg/dL (2.6-4.7) Magnesium Level 2.9 mg/dL (1.8-2.4) Albumin 1.6 g/dL (3.4-5.0) Results All relevant outside records, renal labs, imaging studies, telemetry/EKG's were reviewed. Other Low lung volumes. Patchy bibasilar opacities, unchanged. Small left pleural effusion, unchanged. Unchanged heart size. Stable endotracheal tube, enteric tube and right IJ central lines. Impression: 1. No significant interval change compared to prior. RANDALL GALVIN MD Jun 20, 2019 09:20
[2019-06-20] MEDS: MICAFUNGIN 100 MG in IV DEXTROSE 5% 100ML 100 ML IV SCH (09:27)
[2019-06-20 10:01] LABS: FIO2 ABG 40
--- NOTE | 2019-06-20 10:05 | PDOC ---
PROGRESS NOTES History of Present Illness History of Present Illness ASSESSMENT AND PLAN: Acute hypoxemic respiratory failure, Severe pancreatitis. , GALLSTONE pancreatitis hypoattenuation of the pancreas, concerning for necrosis although evaluation degraded without IV contrast. 06/16 Severe biliary pancreatitis. Resp failure Renal failure MORBID OBESITY ACUTE HYPOXIC RESP FAILURE// ARDS HYPERKALEMIA hypocalcemia per nephrology replacement TRANSAMINITIS LACTIC ACIDOSIS SEPSIS VOLUME OVERLOAD HYPERGLYCEMIA, UNCONTROLLED HYPOCALCEMIA, REPLACE PER RENAL high surgical risk admitted consult GI, IV fluids, p.r.n. antiemetics, home medications, deep venous thrombosis prophylaxis. Full code. nephrology consult gen surgery consult GI CONSULT O2 SUPPORT lactic acid with reflex iv zosyn per pharmacy ID CONSULT BLOOD CULT BICARB DRIP prn temp dialysis catheter PULM CONSULT INSULIN DRIP PRN HOLD SURGERY, HIGH RISK orally intubated on vent, mitts ADD LANTUS 15 UNITS SQ HS 06/19 sedated on vent D/W RN // family in room PROGNOSIS: Guarded. 34 MIN CC TIME Vitals Vitals Vital Signs Date Time Temp Pulse Resp B/P (MAP) Pulse Ox O2 Delivery O2 Flow Rate FiO2 06/20/19 10:00 75 14 110/73 (85) 100 Ventilator 06/20/19 08:00 99.0 99.0 Physical Exam Physical Exam GENERAL: Sedated, orally intubated on vent, mitts HEENT: Pupils equal, small. OGT/ETT in place NECK: Supple no JVD LUNGS: Diminished aeration bases HEART: S1, S2, regular, no murmurs. ABDOMEN: Distended, tight but some soft, no guarding to palpation, BS hypoactive : [place] EXTREMITIES: trace edema, no cyanosis. SCDs bilaterally SKIN: Warm, dry. 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 PHYSICIAN: MARIA L CRUZ MD REASON: Severe pancreatitis; status of pancreas? PROCEDURE: CT ABDOMEN PELVIS WO CONTRAST CT ABDOMEN PELVIS WO CONTRAST History: Severe pancreatitis. Technique: Noncontrast examination of the abdomen and pelvis. Coronal and sagittal reconstructions were performed. Exposure: One or more of the following individualized dose reduction techniques were utilized for this examination: 1. Automated exposure control 2. Adjustment of the mA and/or kV according to patient size 3. Use of iterative reconstruction technique. Comparison: June 11, 2019 Findings: Lower chest: Moderate left and small right pleural effusions with adjacent atelectasis. Abdomen and pelvis: Severe findings of pancreatitis. Diffuse hypoattenuation of the pancreas, concerning for necrosis. Evaluation degraded without IV contrast. Fluid collection along the inferior aspect of the stomach measures 9.6 x 4.0 cm. Loculated fluid collection along the anterior aspect of the pancreas measures 3.0 x 2.6 cm. Severe inflammatory changes extending inferiorly. Small perihepatic free fluid. Bilateral perinephric inflammatory changes. Cholelithiasis. The liver, spleen, adrenal glands and kidneys are unremarkable noncontrast appearance. No hydronephrosis. Regions of colonic wall thickening, likely reactive. Normal appendix. Enteric tube within the stomach. No evidence of small bowel obstruction. Duodenal proximal jejunal wall thickening, likely reactive. Multiple enlarged mesenteric lymph nodes.. Catheter within the urinary bladder. Mild body wall edema. Bones: No pathologic osseous lesions. Impression: 1. Increased severe pancreatitis with extensive inflammatory changes and hypoattenuation of the pancreas, concerning for necrosis although evaluation degraded without IV contrast. 2. New fluid collection along the inferior aspect of the stomach and anterior aspect of the pancreas. 3. Increased multifocal colonic and small bowel wall thickening, likely reactive. 4. New small perihepatic free fluid. 5. Cholelithiasis. 6. Mesenteric lymphadenopathy, likely reactive. 7. Moderate left and small right pleural effusion with adjacent atelectasis. Electronically signed by: Khurram Faust DO (06/17/2019 4:28 AM) [id number] DICTATED and SIGNED BY: KHURRAM FAUST DO DATE: 06/17/19 0428 Laboratory Tests Test 06/19/19 12:08 06/19/19 15:50 06/19/19 19:55 06/20/19 00:27 Glucose (Fingerstick) 252 mg/dL (70-99) 219 mg/dL (70-99) 197 mg/dL (70-99) 276 mg/dL (70-99) Test 06/20/19 04:18 06/20/19 06:20 06/20/19 07:00 06/20/19 07:34 Glucose (Fingerstick) 283 mg/dL (70-99) 325 mg/dL (70-99) White Blood Count 16.2 x10^3/uL (4.0-11.0) Red Blood Count 3.22 x10^6/uL (4.30-5.70) Hemoglobin 9.4 g/dL (13.0-17.5) Hematocrit 29.0 % (39.0-53.0) Mean Corpuscular Volume 90 fL (79-100) Mean Corpuscular Hemoglobin 29 pg (25-35) Mean Corpuscular Hemoglobin Concent 32 g/dL (31-37) Red Cell Distribution Width 14.8 % (11.5-14.5) Platelet Count 246 x10^3/uL (140-400) Neutrophils (%) (Auto) 93 % (31-73) Lymphocytes (%) (Auto) 4 % (24-48) Monocytes (%) (Auto) 3 % (0-9) Eosinophils (%) (Auto) 0 % (0-3) Basophils (%) (Auto) 0 % (0-3) Neutrophils # (Auto) 15.0 x10^3/uL (1.8-7.7) Lymphocytes # (Auto) 0.7 x10^3/uL (1.0-4.8) Monocytes # (Auto) 0.5 x10^3/uL (0.0-1.1) Eosinophils # (Auto) 0.0 x10^3/uL (0.0-0.7) Basophils # (Auto) 0.0 x10^3/uL (0.0-0.2) Sodium Level 153 mmol/L (136-145) Potassium Level 4.8 mmol/L (3.5-5.1) Chloride Level 119 mmol/L (98-107) Carbon Dioxide Level 30 mmol/L (21-32) Anion Gap 4 (6-14) Blood Urea Nitrogen 41 mg/dL (8-26) Creatinine 1.6 mg/dL (0.7-1.3) Estimated GFR (Cockcroft-Gault) 55.9 Glucose Level 345 mg/dL (70-99) Calcium Level 7.2 mg/dL (8.5-10.1) Phosphorus Level 2.8 mg/dL (2.6-4.7) Magnesium Level 2.9 mg/dL (1.8-2.4) Albumin 1.6 g/dL (3.4-5.0) O2 Saturation 97 % (92-99) Arterial Blood pH 7.42 (7.35-7.45) Arterial Blood pCO2 at Patient Temp 41 mmHg (35-46) Arterial Blood pO2 at Patient Temp 105 mmHg (75-108) Arterial Blood HCO3 26 mmol/L (21-28) Arterial Blood Base Excess 1 mmol/L (-3-3) FiO2 40 Assessment and Plan Assessmemt and Plan Problems Medical Problems: (1) Acute pancreatitis Status: Acute (2) Nausea & vomiting Status: Acute Comment Review of Relevant I have reviewed the following items alexandra (where applicable) has been applied. Labs Laboratory Tests Test 06/18/19 12:40 06/18/19 17:31 06/18/19 20:55 06/19/19 00:20 Glucose (Fingerstick) 309 mg/dL (70-99) 210 mg/dL (70-99) 184 mg/dL (70-99) 233 mg/dL (70-99) Test 06/19/19 04:40 06/19/19 06:15 06/19/19 07:56 06/19/19 08:00 Glucose (Fingerstick) 232 mg/dL (70-99) 178 mg/dL (70-99) White Blood Count 15.9 x10^3/uL (4.0-11.0) Red Blood Count 3.27 x10^6/uL (4.30-5.70) Hemoglobin 9.5 g/dL (13.0-17.5) Hematocrit 29.5 % (39.0-53.0) Mean Corpuscular Volume 90 fL (79-100) Mean Corpuscular Hemoglobin 29 pg (25-35) Mean Corpuscular Hemoglobin Concent 32 g/dL (31-37) Red Cell Distribution Width 14.7 % (11.5-14.5) Platelet Count 239 x10^3/uL (140-400) Neutrophils (%) (Auto) 93 % (31-73) Lymphocytes (%) (Auto) 4 % (24-48) Monocytes (%) (Auto) 3 % (0-9) Eosinophils (%) (Auto) 0 % (0-3) Basophils (%) (Auto) 0 % (0-3) Neutrophils # (Auto) 14.8 x10^3/uL (1.8-7.7) Lymphocytes # (Auto) 0.6 x10^3/uL (1.0-4.8) Monocytes # (Auto) 0.5 x10^3/uL (0.0-1.1) Eosinophils # (Auto) 0.0 x10^3/uL (0.0-0.7) Basophils # (Auto) 0.0 x10^3/uL (0.0-0.2) Sodium Level 159 mmol/L (136-145) Potassium Level 5.1 mmol/L (3.5-5.1) Chloride Level 122 mmol/L (98-107) Carbon Dioxide Level 32 mmol/L (21-32) Anion Gap 5 (6-14) Blood Urea Nitrogen 40 mg/dL (8-26) Creatinine 1.5 mg/dL (0.7-1.3) Estimated GFR (Cockcroft-Gault) 60.2 Glucose Level 235 mg/dL (70-99) Calcium Level 7.5 mg/dL (8.5-10.1) Phosphorus Level 2.4 mg/dL (2.6-4.7) Magnesium Level 2.8 mg/dL (1.8-2.4) Albumin 1.7 g/dL (3.4-5.0) Triglycerides Level 216 mg/dL (0-150) O2 Saturation 97 % (92-99) Arterial Blood pH 7.43 (7.35-7.45) Arterial Blood pCO2 at Patient Temp 41 mmHg (35-46) Arterial Blood pO2 at Patient Temp 98 mmHg (75-108) Arterial Blood HCO3 27 mmol/L (21-28) Arterial Blood Base Excess 2 mmol/L (-3-3) FiO2 40% vent Test 06/19/19 12:08 06/19/19 15:50 06/19/19 19:55 06/20/19 00:27 Glucose (Fingerstick) 252 mg/dL (70-99) 219 mg/dL (70-99) 197 mg/dL (70-99) 276 mg/dL (70-99) Test 06/20/19 04:18 06/20/19 06:20 06/20/19 07:00 06/20/19 07:34 Glucose (Fingerstick) 283 mg/dL (70-99) 325 mg/dL (70-99) White Blood Count 16.2 x10^3/uL (4.0-11.0) Red Blood Count 3.22 x10^6/uL (4.30-5.70) Hemoglobin 9.4 g/dL (13.0-17.5) Hematocrit 29.0 % (39.0-53.0) Mean Corpuscular Volume 90 fL (79-100) Mean Corpuscular Hemoglobin 29 pg (25-35) Mean Corpuscular Hemoglobin Concent 32 g/dL (31-37) Red Cell Distribution Width 14.8 % (11.5-14.5) Platelet Count 246 x10^3/uL (140-400) Neutrophils (%) (Auto) 93 % (31-73) Lymphocytes (%) (Auto) 4 % (24-48) Monocytes (%) (Auto) 3 % (0-9) Eosinophils (%) (Auto) 0 % (0-3) Basophils (%) (Auto) 0 % (0-3) Neutrophils # (Auto) 15.0 x10^3/uL (1.8-7.7) Lymphocytes # (Auto) 0.7 x10^3/uL (1.0-4.8) Monocytes # (Auto) 0.5 x10^3/uL (0.0-1.1) Eosinophils # (Auto) 0.0 x10^3/uL (0.0-0.7) Basophils # (Auto) 0.0 x10^3/uL (0.0-0.2) Sodium Level 153 mmol/L (136-145) Potassium Level 4.8 mmol/L (3.5-5.1) Chloride Level 119 mmol/L (98-107) Carbon Dioxide Level 30 mmol/L (21-32) Anion Gap 4 (6-14) Blood Urea Nitrogen 41 mg/dL (8-26) Creatinine 1.6 mg/dL (0.7-1.3) Estimated GFR (Cockcroft-Gault) 55.9 Glucose Level 345 mg/dL (70-99) Calcium Level 7.2 mg/dL (8.5-10.1) Phosphorus Level 2.8 mg/dL (2.6-4.7) Magnesium Level 2.9 mg/dL (1.8-2.4) Albumin 1.6 g/dL (3.4-5.0) O2 Saturation 97 % (92-99) Arterial Blood pH 7.42 (7.35-7.45) Arterial Blood pCO2 at Patient Temp 41 mmHg (35-46) Arterial Blood pO2 at Patient Temp 105 mmHg (75-108) Arterial Blood HCO3 26 mmol/L (21-28) Arterial Blood Base Excess 1 mmol/L (-3-3) FiO2 40 Laboratory Tests Test 06/19/19 12:08 06/19/19 15:50 06/19/19 19:55 06/20/19 00:27 Glucose (Fingerstick) 252 mg/dL (70-99) 219 mg/dL (70-99) 197 mg/dL (70-99) 276 mg/dL (70-99) Test 06/20/19 04:18 06/20/19 06:20 06/20/19 07:00 06/20/19 07:34 Glucose (Fingerstick) 283 mg/dL (70-99) 325 mg/dL (70-99) White Blood Count 16.2 x10^3/uL (4.0-11.0) Red Blood Count 3.22 x10^6/uL (4.30-5.70) Hemoglobin 9.4 g/dL (13.0-17.5) Hematocrit 29.0 % (39.0-53.0) Mean Corpuscular Volume 90 fL (79-100) Mean Corpuscular Hemoglobin 29 pg (25-35) Mean Corpuscular Hemoglobin Concent 32 g/dL (31-37) Red Cell Distribution Width 14.8 % (11.5-14.5) Platelet Count 246 x10^3/uL (140-400) Neutrophils (%) (Auto) 93 % (31-73) Lymphocytes (%) (Auto) 4 % (24-48) Monocytes (%) (Auto) 3 % (0-9) Eosinophils (%) (Auto) 0 % (0-3) Basophils (%) (Auto) 0 % (0-3) Neutrophils # (Auto) 15.0 x10^3/uL (1.8-7.7) Lymphocytes # (Auto) 0.7 x10^3/uL (1.0-4.8) Monocytes # (Auto) 0.5 x10^3/uL (0.0-1.1) Eosinophils # (Auto) 0.0 x10^3/uL (0.0-0.7) Basophils # (Auto) 0.0 x10^3/uL (0.0-0.2) Sodium Level 153 mmol/L (136-145) Potassium Level 4.8 mmol/L (3.5-5.1) Chloride Level 119 mmol/L (98-107) Carbon Dioxide Level 30 mmol/L (21-32) Anion Gap 4 (6-14) Blood Urea Nitrogen 41 mg/dL (8-26) Creatinine 1.6 mg/dL (0.7-1.3) Estimated GFR (Cockcroft-Gault) 55.9 Glucose Level 345 mg/dL (70-99) Calcium Level 7.2 mg/dL (8.5-10.1) Phosphorus Level 2.8 mg/dL (2.6-4.7) Magnesium Level 2.9 mg/dL (1.8-2.4) Albumin 1.6 g/dL (3.4-5.0) O2 Saturation 97 % (92-99) Arterial Blood pH 7.42 (7.35-7.45) Arterial Blood pCO2 at Patient Temp 41 mmHg (35-46) Arterial Blood pO2 at Patient Temp 105 mmHg (75-108) Arterial Blood HCO3 26 mmol/L (21-28) Arterial Blood Base Excess 1 mmol/L (-3-3) FiO2 40 Microbiology 06/14/19 Blood Culture - Final, Complete NO GROWTH AFTER 5 DAYS Medications Current Medications Morphine Sulfate (Morphine Sulfate) 4 mg PRN Q15MIN PRN IV/SQ PAIN GREATER THAN 3/10 Last administered on 06/11/19at 04:58; Start 06/11/19 at 04:30; Stop 06/11 at 16:47; Status DC Sodium Chloride 1,000 ml @ 1,000 mls/hr Q1H IV Last administered on 06/11/19at 04:34; Start 06/11/19 at 04:30; Stop 06/11/19 at 05:29; Status DC Ondansetron HCl (Zofran) 4 mg 1X ONCE IV Last administered on 06/11/19at 04:33; Start 06/11/19 at 04:30; Stop 06/11/19 at 04:33; Status DC Iohexol (Omnipaque 350 Mg/ml) 100 ml 1X ONCE IV Last administered on 06/11/19at 05:01; Start 06/11/19 at 04:45; Stop 06/11/19 at 04:46; Status DC Info (CONTRAST GIVEN -- Rx MONITORING) 1 each PRN DAILY PRN MC SEE COMMENTS; Start 06/11/19 at 04:45; Stop 06/13/19 at 04:44; Status DC Fentanyl Citrate (Fentanyl 2ml Vial) 100 mcg STK-MED ONCE .ROUTE ; Start 06/11/19 at 04:42; Stop 06/11/19 at 04:42; Status DC Fentanyl Citrate (Fentanyl 2ml Vial) 50 mcg 1X ONCE IVP Last administered on 06/11/19at 04:45; Start 06/11/19 at 05:00; Stop 06/11/19 at 05:01; Status DC Ondansetron HCl (Zofran) 4 mg PRN Q8HRS PRN IV NAUSEA/VOMITING Last administered on 06/12/19at 03:29; Start 06/11/19 at 05:45; Stop 06/12/19 at 05:44; Status DC Morphine Sulfate (Morphine Sulfate) 4 mg PRN Q2HR PRN IV PAIN Last administered on 06/11/19at 07:37; Start 06/11/19 at 05:45; Stop 06/11/19 at 11:54; Status DC Sodium Chloride 1,000 ml @ 150 mls/hr Q6H40M IV Last administered on 06/12/19at 03:28; Start 06/11/19 at 05:45; Stop 06/12/19 at 11:01; Status DC Hydromorphone HCl (Dilaudid) 0.5 mg PRN Q3HRS PRN IV PAIN Last administered on 06/11/19at 08:38; Start 06/11/19 at 05:45; Stop 2/26/20 at 09:12; Status DC Potassium Chloride/Water 100 ml @ 100 mls/hr Q1H IV Last administered on 06/11/19 08:41; Start 06/11/19 at 06:00; Stop 06/11/19 at 07:59; Status DC Hydromorphone HCl (Dilaudid) 1 mg PRN Q3HRS PRN IV PAIN Last administered on 06/11/19 09:29; Start 06/11/19 at 09:15; Stop 06/11/19 at 11:54; Status DC Prochlorperazine Edisylate (Compazine) 10 mg PRN Q8HRS PRN IV NAUSEA/VOMITING Last administered on 06/12/19at 14:59; Start 06/11/19 at 12:00 Hydromorphone HCl (Dilaudid) 1 mg PRN Q2HRS PRN IV PAIN Last administered on 06/14/19at 13:00; Start 06/11/19 at 12:00 Pantoprazole Sodium (PROTONIX VIAL for IV PUSH) 40 mg DAILYAC IVP Last administered on 06/12/19at 08:29; Start 06/11/19 at 15:00; Stop 06/12/19 at 16:23; Status DC Lorazepam (Ativan Inj) 1 mg PRN Q6HRS PRN IVP ANXIETY / AGITATION Last administered on 06/14/19at 13:00; Start 06/11/19 at 18:15 Hydralazine HCl (Apresoline Inj) 10 mg PRN Q6HRS PRN IVP ELEVATED BP, SEE COMMENTS Last administered on 06/18/19at 09:32; Start 06/11/19 at 18:15 Nystatin (Nystop) 1 devorah PRN QID PRN TP FUNGAL RASH Last administered on 06/11/19at 23:19; Start 06/11/19 at 23:15 Sodium Chloride 1,000 ml @ 1,000 mls/hr 1X ONCE IV Last administered on 06/12/19at 05:27; Start 06/12/19 at 06:00; Stop 06/12/19 at 06:59; Status DC Sodium Chloride 1,000 ml @ 1,000 mls/hr 1X ONCE IV Last administered on 06/12/19at 05:25; Start 06/12/19 at 05:00; Stop 06/12/19 at 05:59; Status DC Sodium Chloride 1,000 ml @ 200 mls/hr Q5H IV Last administered on 06/12/19at 06:36; Start 06/12/19 at 07:00; Stop 06/12/19 at 11:01; Status DC Sodium Bicarbonate 50 meq/Sodium Chloride 1,050 ml @ 150 mls/hr Q7H IV Last administered on 06/13/19at 04:16; Start 06/12/19 at 11:00; Stop 06/13/19 at 14:48; Status DC Amino Acids/ Glycerin/ Electrolytes 1,000 ml @ 80 mls/hr [id number] IV ; Start 06/12/19 at 10:00; Status UNV Amino Acids/ Electrolytes/ Dextrose 1,000 ml @ 80 mls/hr [id number] IV ; Start 06/12/19 at 10:15; Stop 06/18/19 at 13:50; Status DC Piperacillin Sod/ Tazobactam Sod (Zosyn Per Pharmacy) 1 each PRN DAILY PRN MC SEE COMMENTS; Start 06/12/19 at 13:15; Stop 06/12/19 at 19:16; Status DC Piperacillin Sod/ Tazobactam Sod 2.25 gm/Sodium Chloride 50 ml @ 100 mls/hr Q6HRS IV Last administered on 06/12/19at 13:48; Start 06/12/19 at 13:30; Stop 06/12/19 at 19:15; Status DC Sodium Bicarbonate (Sodium Bicarb Adult 8.4% Syr) 50 meq 1X ONCE IV Last administered on 06/12/19at 16:12; Start 06/12/19 at 16:00; Stop 06/12/19 at 16:01; Status DC Calcium Gluconate 1000 mg/Sodium Chloride 110 ml @ 220 mls/hr 1X ONCE IV Last administered on 06/12/19at 16:13; Start 06/12/19 at 16:00; Stop 06/12/19 at 16:29; Status DC Dextrose (Dextrose 50%-Water Syringe) 25 gm 1X ONCE IV Last administered on 06/12/19at 16:13; Start 06/12/19 at 16:00; Stop 06/12/19 at 16:01; Status DC Insulin Human Regular (HumuLIN R VIAL) 10 unit 1X ONCE IV Last administered on 06/12/19at 16:14; Start 06/12/19 at 16:00; Stop 06/12/19 at 16:01; Status DC Furosemide (Lasix) 40 mg 1X ONCE IVP Last administered on 06/12/19at 16:13; Start 06/12/19 at 16:00; Stop 06/12/19 at 16:01; Status DC Pantoprazole Sodium (PROTONIX VIAL for IV PUSH) 40 mg [id number] IVP Last administered on 06/13/19at 06:21; Start 06/12/19 at 18:00; Stop 06/13/19 at 18:49; Status DC Meropenem 500 mg/ Sodium Chloride 50 ml @ 100 mls/hr Q12HR IV Last administered on 06/17/19at 20:59; Start 06/12/19 at 21:00; Stop 06/18/19 at 07:26; Status DC Calcium Gluconate 1000 mg/Sodium Chloride 110 ml @ 220 mls/hr 1X ONCE IV Last administered on 06/12/19at 20:35; Start 06/12/19 at 19:15; Stop 06/12/19 at 19:44; Status DC Lidocaine HCl (Buffered Lidocaine 1%) 3 ml STK-MED ONCE .ROUTE ; Start 06/13/19 at 08:47; Stop 06/13/19 at 08:47; Status DC Lidocaine HCl (Buffered Lidocaine 1%) 6 ml 1X ONCE INJ Last administered on 06/13/19at 09:23; Start 06/13/19 at 09:30; Stop 06/13/19 at 09:31; Status DC Insulin Human Lispro (HumaLOG) 0-7 UNITS TIDWMEALS SQ Last administered on 06/13/19at 12:14; Start 06/13/19 at 12:00; Stop 06/14/19 at 23:29; Status DC Dextrose (Dextrose 50%-Water Syringe) 12.5 gm PRN Q15MIN PRN IV SEE COMMENTS; Start 06/13/19 at 11:15; Stop 06/14/19 at 23:29; Status DC Insulin Human Regular 100 unit/ Sodium Chloride 101 ml @ 0 mls/hr CONT PRN IV SEE I/O RECORD Last administered on 06/13/19at 15:03; Start 06/13/19 at 14:15 Sodium Chloride 1,000 ml @ 1,000 mls/hr Q1H PRN IV hypotension; Start 06/13/19 at 14:00; Stop 06/13/19 at 19:59; Status DC Sodium Chloride 1,000 ml @ 400 mls/hr Q2H30M PRN IV PATENCY; Start 06/13/19 at 14:00; Stop 06/14/19 at 01:59; Status DC Info (PHARMACY MONITORING -- do not chart) 1 each PRN DAILY PRN MC SEE COMMENTS; Start 06/13/19 at 14:45; Stop 06/13/19 at 14:51; Status DC Info (PHARMACY MONITORING -- do not chart) 1 each PRN DAILY PRN MC SEE COMMENTS; Start 06/13/19 at 14:45 Pantoprazole Sodium (PROTONIX VIAL for IV PUSH) 40 mg [id number] IVP Last administered on 06/20/19at 05:58; Start 06/13/19 at 21:00 Dexmedetomidine HCl 400 mcg/ Sodium Chloride 100 ml @ 0 mls/hr CONT PRN IV PER PROTOCOL Last administered on 06/20/19at 09:27; Start 06/13/19 at 19:00 Sodium Chloride 500 ml @ 500 mls/hr 1X PRN PRN IV SEE COMMENTS; Start 06/13/19 at 19:00 Atropine Sulfate (ATROPINE 0.5mg SYRINGE) 0.5 mg PRN Q5MIN PRN IV SEE COMMENTS; Start 06/13/19 at 19:00 Sodium Chloride 1,000 ml @ 1,000 mls/hr Q1H PRN IV hypotension; Start 06/14/19 at 08:55; Stop 06/14/19 at 14:54; Status DC Albumin Human 200 ml @ 200 mls/hr 1X PRN PRN IV Hypotension Last administered on 06/14/19at 09:40; Start 06/14/19 at 09:00; Stop 06/14/19 at 14:59; Status DC Sodium Chloride 1,000 ml @ 400 mls/hr Q2H30M PRN IV PATENCY; Start 06/14/19 at 08:55; Stop 06/14/19 at 20:54; Status DC Info (PHARMACY MONITORING -- do not chart) 1 each PRN DAILY PRN MC SEE COMMENTS ; Start 06/14/19 at 09:00; Stop 06/14/19 at 09:06; Status DC Info (PHARMACY MONITORING -- do not chart) 1 each PRN DAILY PRN MC SEE COMMENTS; Start 06/14/19 at 09:00; Stop 06/14/19 at 09:06; Status DC Calcium Chloride 2000 mg/Sodium Chloride 120 ml @ 240 mls/hr PRN QID PRN IV for CALCIUM < 5.8 Last administered on 06/15/19at 08:32; Start 06/14/19 at 10:15; Stop 06/15/19 at 09:58; Status DC Magnesium Sulfate 50 ml @ 25 mls/hr PRN DAILY PRN IV for Mag < 1.7 on am labs; Start 06/14/19 at 10:30 Norepinephrine Bitartrate 8 mg/ Dextrose 258 ml @ 20.027 mls/ hr CONT PRN IV PER PROTOCOL Last administered on 06/14/19at 10:31; Start 06/14/19 at 10:30 Succinylcholine Chloride (Anectine) 200 mg STK-MED ONCE .ROUTE ; Start 06/14/19 at 12:22; Stop 06/14/19 at 12:23; Status DC Etomidate (Amidate) 20 mg STK-MED ONCE IV ; Start 06/14/19 at 12:22; Stop 06/14/19 at 12:23; Status DC Fentanyl Citrate 30 ml @ 0 mls/hr CONT PRN IV SEE PROTOCOL Last administered on 06/19/19at 08:10; Start 06/14/19 at 12:45; Stop 06/19/19 at 11:00; Status DC Chlorhexidine Gluconate (Peridex) 15 ml BID MM Last administered on 06/20/19at 08:07; Start 06/14/19 at 21:00 Midazolam HCl 50 mg/Sodium Chloride 50 ml @ 0 mls/hr CONT PRN IV SEE PROTOCOL Last administered on 06/20/19at 06:21; Start 06/14/19 at 12:45 Midazolam HCl (Versed) 5 mg STK-MED ONCE .ROUTE ; Start 06/14/19 at 12:48; Stop 06/14/19 at 12:48; Status DC Fentanyl Citrate (Fentanyl 2ml Vial) 100 mcg STK-MED ONCE .ROUTE ; Start 06/14/19 at 12:48; Stop 06/14/19 at 12:48; Status DC Midazolam HCl (Versed) 5 mg 1X ONCE IV Last administered on 06/14/19at 12:59; Start 06/14/19 at 13:00; Stop 06/14/19 at 13:01; Status DC Fentanyl Citrate (Fentanyl 2ml Vial) 100 mcg 1X ONCE IM Last administered on 06/14/19at 12:58; Start 06/14/19 at 13:00; Stop 06/14/19 at 13:01; Status DC Succinylcholine Chloride (Anectine) 200 mg 1X ONCE IV Last administered on 06/14/19at 12:59; Start 06/14/19 at 13:00; Stop 06/14/19 at 13:01; Status DC Etomidate (Amidate) 14 mg 1X ONCE IV Last administered on 06/14/19at 12:59; Start 06/14/19 at 13:00; Stop 06/14/19 at 13:01; Status DC Acetaminophen (Tylenol Supp) 650 mg PRN Q6HRS PRN GA MILD PAIN / TEMP Last administered on 06/19/19at 14:54; Start 06/14/19 at 20:00 Linezolid/Dextrose 300 ml @ 300 mls/hr Q12HR IV Last administered on 06/20/19at 08:07; Start 06/14/19 at 21:00 Insulin Human Lispro (HumaLOG) 0-7 UNITS TIDWMEALS SQ ; Start 06/15/19 at 08:00; Stop 06/15/19 at 00:03; Status DC Dextrose (Dextrose 50%-Water Syringe) 12.5 gm PRN Q15MIN PRN IV SEE COMMENTS; Start 06/14/19 at 23:30 Insulin Human Lispro (HumaLOG) 0-7 UNITS Q4HRS SQ Last administered on 06/20/19at 08:10; Start 06/15/19 at 00:15 Calcium Gluconate 61622 mg/Sodium Chloride 494 ml @ 4.051 mls/ hr CONT PRN IV SYMPTOMATIC HYPOCALCEMIA; Start 06/15/19 at 09:30; Stop 06/15/19 at 09:23; Status DC Calcium Gluconate 5000 mg/Sodium Chloride 260 ml @ 5.543 mls/ hr CONT PRN IV SYMPTOMATIC HYPOCALCEMIA; Start 06/15/19 at 09:30; Stop 06/15/19 at 09:26; Status DC Calcium Gluconate 5000 mg/Sodium Chloride 260 ml @ 5.543 mls/ hr CONT PRN IV SYMPTOMATIC HYPOCALCEMIA; Start 06/15/19 at 09:30; Stop 06/15/19 at 09:29; Status DC Calcium Gluconate 5000 mg/Sodium Chloride 250 ml @ 28.782 mls/ hr CONT PRN IV SYMPTOMATIC HYPOCALCEMIA Last administered on 06/18/19at 06:12; Start 06/15/19 at 09:30; Stop 06/18/19 at 13:50; Status DC Lidocaine HCl (Lidocaine Pf 2% Vial) 5 ml STK-MED ONCE .ROUTE ; Start 06/14/19 at 12:00; Stop 06/17/19 at 10:37; Status DC Meropenem 500 mg/ Sodium Chloride 50 ml @ 100 mls/hr Q6HRS IV Last administered on 06/20/19at 05:58; Start 06/18/19 at 07:30 Nicardipine HCl 50 mg/Sodium Chloride 250 ml @ 25 mls/hr CONT PRN IV SEE I/O RECORD; Start 06/18/19 at 11:45 Metoprolol Tartrate (Lopressor Vial) 5 mg 1X ONCE IVP ; Start 06/18/19 at 12:15; Stop 06/18/19 at 12:16; Status DC Fentanyl Citrate (Fentanyl 600 Mcg/30 ml [employer]) 600 mcg STK-MED ONCE IV ; Start 06/15/19 at 05:30; Stop 06/18/19 at 12:07; Status DC Enoxaparin Sodium (Lovenox 40mg Syringe) 40 mg Q24H SQ Last administered on 06/19/19at 22:10; Start 06/18/19 at 22:30 Fentanyl Citrate 55 ml @ 1.98 mls/hr CONT PRN IV SEE PROTOCOL; Start 06/19/19 at 08:15; Status Cancel Info (Tpn Per Pharmacy) 1 each PRN DAILY PRN MC SEE COMMENTS Last administered on 06/19/19at 16:41; Start 06/19/19 at 11:15 Hydralazine HCl (Apresoline Inj) 10 mg PRN Q4HRS PRN IVP ELEVATED BP, SEE COMMENTS; Start 06/19/19 at 11:45 Labetalol HCl (Normodyne Iv Push) 20 mg PRN Q2HR PRN IVP HYPERTENSION; Start 06/19/19 at 11:45 Potassium Phosphate 13.6 mmol/Magnesium Sulfate 10 meq/ Calcium Gluconate 20 meq/ Multivitamins 10 ml/Chromium/ Copper/Manganese/ Seleni/Zn 0.5 ml/ Total Parenteral Nutrition/Amino Acids/Dextrose/ Fat Emulsion Intravenous 1,920 ml @ 80 mls/hr TPN CONT IV Last administered on 06/19/19at 21:31; Start 06/19/19 at 22:00; Stop 06/20/19 at 21:59 Fentanyl Citrate 30 ml @ 0 mls/hr CONT PRN IV SEE PROTOCOL Last administered on 06/20/19at 06:20; Start 06/19/19 at 18:00 Micafungin Sodium 100 mg/Dextrose 100 ml @ 100 mls/hr Q24H IV Last administered on 06/20/19at 09:27; Start 06/20/19 at 09:00 Active Scripts Active Vitals/I & O Vital Sign - Last 24 Hours 06/19/19 06/19/19 06/19/19 06/19/19 11:00 11:45 12:00 12:00 Temp 100.4 100.4 Pulse 82 85 Resp 20 20 B/P (MAP) 105/63 (77) 151/96 (114) Pulse Ox 100 100 98 O2 Delivery Ventilator Ventilator Ventilator Mechanical Ventilator 06/19/19 06/19/19 06/19/19 06/19/19 13:00 13:18 14:00 15:00 Pulse 104 88 86 Resp 20 19 20 B/P (MAP) 166/112 (130) 112/74 (87) 115/79 (91) Pulse Ox 98 99 99 99 O2 Delivery Ventilator Ventilator Ventilator Ventilator 06/19/19 06/19/19 06/19/19 06/19/19 15:49 16:00 16:00 17:00 Temp 100.2 100.2 Pulse 90 80 Resp 18 22 B/P (MAP) 156/104 (121) 82/53 (63) Pulse Ox 99 99 99 O2 Delivery Ventilator Ventilator Mechanical Ventilator Ventilator 06/19/19 06/19/19 06/19/19 06/19/19 17:36 18:00 19:00 20:00 Temp 100.2 100.2 Pulse 78 76 Resp 16 16 B/P (MAP) 103/70 (81) 103/66 (78) Pulse Ox 99 98 99 O2 Delivery Ventilator Ventilator Ventilator Mechanical Ventilator 06/19/19 06/19/19 06/19/19 06/19/19 20:00 20:33 21:00 22:00 Pulse 80 81 84 Resp 16 14 14 B/P (MAP) 109/66 (80) 109/74 (86) 119/80 (93) Pulse Ox 99 99 99 100 O2 Delivery Ventilator Ventilator Ventilator Ventilator 06/19/19 06/19/19 06/19/19 06/20/19 22:14 23:00 23:59 00:00 Temp 99.7 99.7 Pulse 77 86 Resp 14 14 B/P (MAP) 97/60 (72) 123/93 (103) Pulse Ox 100 100 99 100 O2 Delivery Ventilator Ventilator Ventilator Ventilator 06/20/19 06/20/19 06/20/19 06/20/19 00:00 00:38 00:38 01:00 Pulse 76 Resp 14 B/P (MAP) 100/60 (73) Pulse Ox 100 O2 Delivery Mechanical Ventilator Ventilator Ventilator Ventilator 06/20/19 06/20/19 06/20/19 06/20/19 01:09 01:36 02:00 03:00 Pulse 75 72 Resp 14 14 B/P (MAP) 97/62 (74) 91/58 (69) Pulse Ox 100 100 100 O2 Delivery Ventilator Ventilator Ventilator Ventilator 06/20/19 06/20/19 06/20/19 06/20/19 03:43 04:00 04:00 05:00 Temp 99.1 99.1 Pulse 79 73 Resp 14 14 B/P (MAP) 115/90 (98) 100/54 (69) Pulse Ox 99 100 100 O2 Delivery Ventilator Mechanical Ventilator Ventilator Ventilator 06/20/19 06/20/19 06/20/19 06/20/19 05:54 06:00 06:20 06:51 Pulse 78 Resp 14 B/P (MAP) 104/64 (77) Pulse Ox 99 100 O2 Delivery Ventilator Ventilator Ventilator Ventilator 06/20/19 06/20/19 06/20/19 06/20/19 07:00 07:40 08:00 08:00 Temp 99.0 99.0 Pulse 72 72 Resp 16 14 B/P (MAP) 90/53 (65) 104/66 (79) Pulse Ox 100 100 100 O2 Delivery Ventilator Ventilator Ventilator Mechanical Ventilator 06/20/19 06/20/19 09:00 10:00 Pulse 74 75 Resp 14 14 B/P (MAP) 114/78 (90) 110/73 (85) Pulse Ox 100 100 O2 Delivery Ventilator Ventilator Intake and Output 06/19/19 06/19/19 06/20/19 15:00 23:00 07:00 Intake Total 730 ml 634.16 ml 1361 ml Output Total 920 ml 410 ml 910 ml Balance -190 ml 224.16 ml 451 ml Hemodynamically unstable?: Yes Is patient in severe pain?: Yes Is NPO status required?: Yes JERSON AVILES MD Jun 20, 2019 10:05
--- NOTE | 2019-06-20 10:16 | PDOC ---
PULMONARY PROGRESS NOTES Subjective INTUBATED SEC TO ENCEPHALOPATHY AND DECREASE SAT AC MODE/OFF VERSED/ NEEDING NARCOTICS FOR PAIN Vitals Vital Signs Date Time Temp Pulse Resp B/P (MAP) Pulse Ox O2 Delivery O2 Flow Rate FiO2 06/20/19 10:00 75 14 110/73 (85) 100 Ventilator 06/20/19 08:00 99.0 99.0 Lungs: Clear Cardiovascular: S1, S2 Abdomen: Other ( DISTENDED) Extremities: No Edema Skin: Warm Labs Laboratory Tests Test 06/18/19 12:40 06/18/19 17:31 06/18/19 20:55 06/19/19 00:20 Glucose (Fingerstick) 309 mg/dL (70-99) 210 mg/dL (70-99) 184 mg/dL (70-99) 233 mg/dL (70-99) Test 06/19/19 04:40 06/19/19 06:15 06/19/19 07:56 06/19/19 08:00 Glucose (Fingerstick) 232 mg/dL (70-99) 178 mg/dL (70-99) White Blood Count 15.9 x10^3/uL (4.0-11.0) Red Blood Count 3.27 x10^6/uL (4.30-5.70) Hemoglobin 9.5 g/dL (13.0-17.5) Hematocrit 29.5 % (39.0-53.0) Mean Corpuscular Volume 90 fL (79-100) Mean Corpuscular Hemoglobin 29 pg (25-35) Mean Corpuscular Hemoglobin Concent 32 g/dL (31-37) Red Cell Distribution Width 14.7 % (11.5-14.5) Platelet Count 239 x10^3/uL (140-400) Neutrophils (%) (Auto) 93 % (31-73) Lymphocytes (%) (Auto) 4 % (24-48) Monocytes (%) (Auto) 3 % (0-9) Eosinophils (%) (Auto) 0 % (0-3) Basophils (%) (Auto) 0 % (0-3) Neutrophils # (Auto) 14.8 x10^3/uL (1.8-7.7) Lymphocytes # (Auto) 0.6 x10^3/uL (1.0-4.8) Monocytes # (Auto) 0.5 x10^3/uL (0.0-1.1) Eosinophils # (Auto) 0.0 x10^3/uL (0.0-0.7) Basophils # (Auto) 0.0 x10^3/uL (0.0-0.2) Sodium Level 159 mmol/L (136-145) Potassium Level 5.1 mmol/L (3.5-5.1) Chloride Level 122 mmol/L (98-107) Carbon Dioxide Level 32 mmol/L (21-32) Anion Gap 5 (6-14) Blood Urea Nitrogen 40 mg/dL (8-26) Creatinine 1.5 mg/dL (0.7-1.3) Estimated GFR (Cockcroft-Gault) 60.2 Glucose Level 235 mg/dL (70-99) Calcium Level 7.5 mg/dL (8.5-10.1) Phosphorus Level 2.4 mg/dL (2.6-4.7) Magnesium Level 2.8 mg/dL (1.8-2.4) Albumin 1.7 g/dL (3.4-5.0) Triglycerides Level 216 mg/dL (0-150) O2 Saturation 97 % (92-99) Arterial Blood pH 7.43 (7.35-7.45) Arterial Blood pCO2 at Patient Temp 41 mmHg (35-46) Arterial Blood pO2 at Patient Temp 98 mmHg (75-108) Arterial Blood HCO3 27 mmol/L (21-28) Arterial Blood Base Excess 2 mmol/L (-3-3) FiO2 40% vent Test 06/19/19 12:08 06/19/19 15:50 06/19/19 19:55 06/20/19 00:27 Glucose (Fingerstick) 252 mg/dL (70-99) 219 mg/dL (70-99) 197 mg/dL (70-99) 276 mg/dL (70-99) Test 06/20/19 04:18 06/20/19 06:20 06/20/19 07:00 06/20/19 07:34 Glucose (Fingerstick) 283 mg/dL (70-99) 325 mg/dL (70-99) White Blood Count 16.2 x10^3/uL (4.0-11.0) Red Blood Count 3.22 x10^6/uL (4.30-5.70) Hemoglobin 9.4 g/dL (13.0-17.5) Hematocrit 29.0 % (39.0-53.0) Mean Corpuscular Volume 90 fL (79-100) Mean Corpuscular Hemoglobin 29 pg (25-35) Mean Corpuscular Hemoglobin Concent 32 g/dL (31-37) Red Cell Distribution Width 14.8 % (11.5-14.5) Platelet Count 246 x10^3/uL (140-400) Neutrophils (%) (Auto) 93 % (31-73) Lymphocytes (%) (Auto) 4 % (24-48) Monocytes (%) (Auto) 3 % (0-9) Eosinophils (%) (Auto) 0 % (0-3) Basophils (%) (Auto) 0 % (0-3) Neutrophils # (Auto) 15.0 x10^3/uL (1.8-7.7) Lymphocytes # (Auto) 0.7 x10^3/uL (1.0-4.8) Monocytes # (Auto) 0.5 x10^3/uL (0.0-1.1) Eosinophils # (Auto) 0.0 x10^3/uL (0.0-0.7) Basophils # (Auto) 0.0 x10^3/uL (0.0-0.2) Sodium Level 153 mmol/L (136-145) Potassium Level 4.8 mmol/L (3.5-5.1) Chloride Level 119 mmol/L (98-107) Carbon Dioxide Level 30 mmol/L (21-32) Anion Gap 4 (6-14) Blood Urea Nitrogen 41 mg/dL (8-26) Creatinine 1.6 mg/dL (0.7-1.3) Estimated GFR (Cockcroft-Gault) 55.9 Glucose Level 345 mg/dL (70-99) Calcium Level 7.2 mg/dL (8.5-10.1) Phosphorus Level 2.8 mg/dL (2.6-4.7) Magnesium Level 2.9 mg/dL (1.8-2.4) Albumin 1.6 g/dL (3.4-5.0) O2 Saturation 97 % (92-99) Arterial Blood pH 7.42 (7.35-7.45) Arterial Blood pCO2 at Patient Temp 41 mmHg (35-46) Arterial Blood pO2 at Patient Temp 105 mmHg (75-108) Arterial Blood HCO3 26 mmol/L (21-28) Arterial Blood Base Excess 1 mmol/L (-3-3) FiO2 40 Laboratory Tests Test 06/19/19 12:08 06/19/19 15:50 06/19/19 19:55 06/20/19 00:27 Glucose (Fingerstick) 252 mg/dL (70-99) 219 mg/dL (70-99) 197 mg/dL (70-99) 276 mg/dL (70-99) Test 06/20/19 04:18 06/20/19 06:20 06/20/19 07:00 06/20/19 07:34 Glucose (Fingerstick) 283 mg/dL (70-99) 325 mg/dL (70-99) White Blood Count 16.2 x10^3/uL (4.0-11.0) Red Blood Count 3.22 x10^6/uL (4.30-5.70) Hemoglobin 9.4 g/dL (13.0-17.5) Hematocrit 29.0 % (39.0-53.0) Mean Corpuscular Volume 90 fL (79-100) Mean Corpuscular Hemoglobin 29 pg (25-35) Mean Corpuscular Hemoglobin Concent 32 g/dL (31-37) Red Cell Distribution Width 14.8 % (11.5-14.5) Platelet Count 246 x10^3/uL (140-400) Neutrophils (%) (Auto) 93 % (31-73) Lymphocytes (%) (Auto) 4 % (24-48) Monocytes (%) (Auto) 3 % (0-9) Eosinophils (%) (Auto) 0 % (0-3) Basophils (%) (Auto) 0 % (0-3) Neutrophils # (Auto) 15.0 x10^3/uL (1.8-7.7) Lymphocytes # (Auto) 0.7 x10^3/uL (1.0-4.8) Monocytes # (Auto) 0.5 x10^3/uL (0.0-1.1) Eosinophils # (Auto) 0.0 x10^3/uL (0.0-0.7) Basophils # (Auto) 0.0 x10^3/uL (0.0-0.2) Sodium Level 153 mmol/L (136-145) Potassium Level 4.8 mmol/L (3.5-5.1) Chloride Level 119 mmol/L (98-107) Carbon Dioxide Level 30 mmol/L (21-32) Anion Gap 4 (6-14) Blood Urea Nitrogen 41 mg/dL (8-26) Creatinine 1.6 mg/dL (0.7-1.3) Estimated GFR (Cockcroft-Gault) 55.9 Glucose Level 345 mg/dL (70-99) Calcium Level 7.2 mg/dL (8.5-10.1) Phosphorus Level 2.8 mg/dL (2.6-4.7) Magnesium Level 2.9 mg/dL (1.8-2.4) Albumin 1.6 g/dL (3.4-5.0) O2 Saturation 97 % (92-99) Arterial Blood pH 7.42 (7.35-7.45) Arterial Blood pCO2 at Patient Temp 41 mmHg (35-46) Arterial Blood pO2 at Patient Temp 105 mmHg (75-108) Arterial Blood HCO3 26 mmol/L (21-28) Arterial Blood Base Excess 1 mmol/L (-3-3) FiO2 40 Medications Active Scripts Medications Dose Route/Sig Max Daily Dose Days Date Category Comments cxr 06/19 reviewed Left basal atelectasis/effusion Impression . IMPRESSION: 1. Acute hypoxemic respiratory failure, multifactorial. 2. Acute gallstone pancreatitis./ Necrosis 3. Acute kidney failure. improving 4. Metabolic toxic encephalopathy. 5. Hyperkalemia.corrected 6. Metabolic / respiratory acidosis 7. Hypocalcemia. 8. POSSIBLE ABD COMPARTMENT SYNDROME PRESSURE 20 9. HEP B S POSITIVE 10. Hypernatremia Plan . AC MODE OFF SEDATION/ NEEDS NARCOTICS FOR PAIN / MAY DO CPAP TRIAL IF TOLERATE OFF SEDATION CT ABDOMEN FINDINGS REVIEWED. I AGREE WITH CONSERVATION APPROACH AT PRESENT AND HOLDING ON SURGERY. HIGH RISK WITH SURGERY WILL NEED TO CLOSELY MONITOR CLINICALLY ABG NOTED / AC mode SUPPORT WITH ANTI BX IV FLUID PRN REPLACE CA NEEDED OVERALL PROGNOSIS IS GUARDED AT THIS TIME LIPASE IMPROVING RENAL TO F/U ON INCREASE NA D/W RN/RT TAYA PEREIRA MD Jun 20, 2019 10:16
--- NOTE | 2019-06-20 11:43 | PDOC ---
Objective: Objective: D/w nurse - off sedation this morning, abd pressure up a little, water flushes ok - otherwise minimal bilious output from NG. On TPN. Vital Signs: Vital Signs Date Time Temp Pulse Resp B/P (MAP) Pulse Ox O2 Delivery O2 Flow Rate FiO2 06/20/19 11:34 100 Ventilator 06/20/19 11:00 83 18 161/94 (116) 06/20/19 08:00 99.0 99.0 Labs: Laboratory Tests Test 06/19/19 12:08 06/19/19 15:50 06/19/19 19:55 06/20/19 00:27 Glucose (Fingerstick) 252 mg/dL 219 mg/dL 197 mg/dL 276 mg/dL Test 06/20/19 04:18 06/20/19 06:20 06/20/19 07:00 06/20/19 07:34 Glucose (Fingerstick) 283 mg/dL 325 mg/dL White Blood Count 16.2 x10^3/uL Red Blood Count 3.22 x10^6/uL Hemoglobin 9.4 g/dL Hematocrit 29.0 % Mean Corpuscular Volume 90 fL Mean Corpuscular Hemoglobin 29 pg Mean Corpuscular Hemoglobin Concent 32 g/dL Red Cell Distribution Width 14.8 % Platelet Count 246 x10^3/uL Neutrophils (%) (Auto) 93 % Lymphocytes (%) (Auto) 4 % Monocytes (%) (Auto) 3 % Eosinophils (%) (Auto) 0 % Basophils (%) (Auto) 0 % Neutrophils # (Auto) 15.0 x10^3/uL Lymphocytes # (Auto) 0.7 x10^3/uL Monocytes # (Auto) 0.5 x10^3/uL Eosinophils # (Auto) 0.0 x10^3/uL Basophils # (Auto) 0.0 x10^3/uL Sodium Level 153 mmol/L Potassium Level 4.8 mmol/L Chloride Level 119 mmol/L Carbon Dioxide Level 30 mmol/L Anion Gap 4 Blood Urea Nitrogen 41 mg/dL Creatinine 1.6 mg/dL Estimated GFR (Cockcroft-Gault) 55.9 Glucose Level 345 mg/dL Calcium Level 7.2 mg/dL Phosphorus Level 2.8 mg/dL Magnesium Level 2.9 mg/dL Albumin 1.6 g/dL O2 Saturation 97 % Arterial Blood pH 7.42 Arterial Blood pCO2 at Patient Temp 41 mmHg Arterial Blood pO2 at Patient Temp 105 mmHg Arterial Blood HCO3 26 mmol/L Arterial Blood Base Excess 1 mmol/L FiO2 40 Imaging: CXR 06/19 Impression: 1. No significant interval change compared to prior. PE: GEN: intubated LUNGS: clear, vent HEART: RRR ABD: distended NEURO/PSYCH: off sedation - moved head a little when I said his name A/P: Complicated pancreatitis -- Will review w/ Dr. Coker, plan for interval CT soon. Hemodynamically unstable?: Yes Is patient in severe pain?: Yes Is NPO status required?: Yes PAXTON ALEXANDER Jun 20, 2019 11:43
[2019-06-20] MEDS: TPN PER PHARMACY MC PRN ×2 (12:53→12:57)
--- NOTE | 2019-06-20 12:55 | PDOC ---
SURGICAL PROGRESS NOTE Subjective Pt intubated and sedated Vital Signs Vital Signs Date Time Temp Pulse Resp B/P (MAP) Pulse Ox O2 Delivery O2 Flow Rate FiO2 06/20/19 12:00 100 Ventilator 06/20/19 12:00 100.2 79 16 119/75 (90) 100.2 I&O Intake and Output 06/20/19 07:00 Intake Total 2725.16 ml Output Total 2240 ml Balance 485.16 ml IV Total 2245.16 ml Other 480 ml Output Urine Total 2240 ml General: No acute distress Abdomen: Soft, No tenderness, Other (distended) Labs Laboratory Tests Test 06/18/19 17:31 06/18/19 20:55 06/19/19 00:20 06/19/19 04:40 Glucose (Fingerstick) 210 mg/dL (70-99) 184 mg/dL (70-99) 233 mg/dL (70-99) 232 mg/dL (70-99) Test 06/19/19 06:15 06/19/19 07:56 06/19/19 08:00 06/19/19 12:08 White Blood Count 15.9 x10^3/uL (4.0-11.0) Red Blood Count 3.27 x10^6/uL (4.30-5.70) Hemoglobin 9.5 g/dL (13.0-17.5) Hematocrit 29.5 % (39.0-53.0) Mean Corpuscular Volume 90 fL (79-100) Mean Corpuscular Hemoglobin 29 pg (25-35) Mean Corpuscular Hemoglobin Concent 32 g/dL (31-37) Red Cell Distribution Width 14.7 % (11.5-14.5) Platelet Count 239 x10^3/uL (140-400) Neutrophils (%) (Auto) 93 % (31-73) Lymphocytes (%) (Auto) 4 % (24-48) Monocytes (%) (Auto) 3 % (0-9) Eosinophils (%) (Auto) 0 % (0-3) Basophils (%) (Auto) 0 % (0-3) Neutrophils # (Auto) 14.8 x10^3/uL (1.8-7.7) Lymphocytes # (Auto) 0.6 x10^3/uL (1.0-4.8) Monocytes # (Auto) 0.5 x10^3/uL (0.0-1.1) Eosinophils # (Auto) 0.0 x10^3/uL (0.0-0.7) Basophils # (Auto) 0.0 x10^3/uL (0.0-0.2) Sodium Level 159 mmol/L (136-145) Potassium Level 5.1 mmol/L (3.5-5.1) Chloride Level 122 mmol/L (98-107) Carbon Dioxide Level 32 mmol/L (21-32) Anion Gap 5 (6-14) Blood Urea Nitrogen 40 mg/dL (8-26) Creatinine 1.5 mg/dL (0.7-1.3) Estimated GFR (Cockcroft-Gault) 60.2 Glucose Level 235 mg/dL (70-99) Calcium Level 7.5 mg/dL (8.5-10.1) Phosphorus Level 2.4 mg/dL (2.6-4.7) Magnesium Level 2.8 mg/dL (1.8-2.4) Albumin 1.7 g/dL (3.4-5.0) Triglycerides Level 216 mg/dL (0-150) Glucose (Fingerstick) 178 mg/dL (70-99) 252 mg/dL (70-99) O2 Saturation 97 % (92-99) Arterial Blood pH 7.43 (7.35-7.45) Arterial Blood pCO2 at Patient Temp 41 mmHg (35-46) Arterial Blood pO2 at Patient Temp 98 mmHg (75-108) Arterial Blood HCO3 27 mmol/L (21-28) Arterial Blood Base Excess 2 mmol/L (-3-3) FiO2 40% vent Test 06/19/19 15:50 06/19/19 19:55 06/20/19 00:27 06/20/19 04:18 Glucose (Fingerstick) 219 mg/dL (70-99) 197 mg/dL (70-99) 276 mg/dL (70-99) 283 mg/dL (70-99) Test 06/20/19 06:20 06/20/19 07:00 06/20/19 07:34 06/20/19 11:54 White Blood Count 16.2 x10^3/uL (4.0-11.0) Red Blood Count 3.22 x10^6/uL (4.30-5.70) Hemoglobin 9.4 g/dL (13.0-17.5) Hematocrit 29.0 % (39.0-53.0) Mean Corpuscular Volume 90 fL (79-100) Mean Corpuscular Hemoglobin 29 pg (25-35) Mean Corpuscular Hemoglobin Concent 32 g/dL (31-37) Red Cell Distribution Width 14.8 % (11.5-14.5) Platelet Count 246 x10^3/uL (140-400) Neutrophils (%) (Auto) 93 % (31-73) Lymphocytes (%) (Auto) 4 % (24-48) Monocytes (%) (Auto) 3 % (0-9) Eosinophils (%) (Auto) 0 % (0-3) Basophils (%) (Auto) 0 % (0-3) Neutrophils # (Auto) 15.0 x10^3/uL (1.8-7.7) Lymphocytes # (Auto) 0.7 x10^3/uL (1.0-4.8) Monocytes # (Auto) 0.5 x10^3/uL (0.0-1.1) Eosinophils # (Auto) 0.0 x10^3/uL (0.0-0.7) Basophils # (Auto) 0.0 x10^3/uL (0.0-0.2) Sodium Level 153 mmol/L (136-145) Potassium Level 4.8 mmol/L (3.5-5.1) Chloride Level 119 mmol/L (98-107) Carbon Dioxide Level 30 mmol/L (21-32) Anion Gap 4 (6-14) Blood Urea Nitrogen 41 mg/dL (8-26) Creatinine 1.6 mg/dL (0.7-1.3) Estimated GFR (Cockcroft-Gault) 55.9 Glucose Level 345 mg/dL (70-99) Calcium Level 7.2 mg/dL (8.5-10.1) Phosphorus Level 2.8 mg/dL (2.6-4.7) Magnesium Level 2.9 mg/dL (1.8-2.4) Albumin 1.6 g/dL (3.4-5.0) O2 Saturation 97 % (92-99) Arterial Blood pH 7.42 (7.35-7.45) Arterial Blood pCO2 at Patient Temp 41 mmHg (35-46) Arterial Blood pO2 at Patient Temp 105 mmHg (75-108) Arterial Blood HCO3 26 mmol/L (21-28) Arterial Blood Base Excess 1 mmol/L (-3-3) FiO2 40 Glucose (Fingerstick) 325 mg/dL (70-99) 305 mg/dL (70-99) Laboratory Tests Test 06/19/19 15:50 06/19/19 19:55 06/20/19 00:27 06/20/19 04:18 Glucose (Fingerstick) 219 mg/dL (70-99) 197 mg/dL (70-99) 276 mg/dL (70-99) 283 mg/dL (70-99) Test 06/20/19 06:20 06/20/19 07:00 06/20/19 07:34 06/20/19 11:54 White Blood Count 16.2 x10^3/uL (4.0-11.0) Red Blood Count 3.22 x10^6/uL (4.30-5.70) Hemoglobin 9.4 g/dL (13.0-17.5) Hematocrit 29.0 % (39.0-53.0) Mean Corpuscular Volume 90 fL (79-100) Mean Corpuscular Hemoglobin 29 pg (25-35) Mean Corpuscular Hemoglobin Concent 32 g/dL (31-37) Red Cell Distribution Width 14.8 % (11.5-14.5) Platelet Count 246 x10^3/uL (140-400) Neutrophils (%) (Auto) 93 % (31-73) Lymphocytes (%) (Auto) 4 % (24-48) Monocytes (%) (Auto) 3 % (0-9) Eosinophils (%) (Auto) 0 % (0-3) Basophils (%) (Auto) 0 % (0-3) Neutrophils # (Auto) 15.0 x10^3/uL (1.8-7.7) Lymphocytes # (Auto) 0.7 x10^3/uL (1.0-4.8) Monocytes # (Auto) 0.5 x10^3/uL (0.0-1.1) Eosinophils # (Auto) 0.0 x10^3/uL (0.0-0.7) Basophils # (Auto) 0.0 x10^3/uL (0.0-0.2) Sodium Level 153 mmol/L (136-145) Potassium Level 4.8 mmol/L (3.5-5.1) Chloride Level 119 mmol/L (98-107) Carbon Dioxide Level 30 mmol/L (21-32) Anion Gap 4 (6-14) Blood Urea Nitrogen 41 mg/dL (8-26) Creatinine 1.6 mg/dL (0.7-1.3) Estimated GFR (Cockcroft-Gault) 55.9 Glucose Level 345 mg/dL (70-99) Calcium Level 7.2 mg/dL (8.5-10.1) Phosphorus Level 2.8 mg/dL (2.6-4.7) Magnesium Level 2.9 mg/dL (1.8-2.4) Albumin 1.6 g/dL (3.4-5.0) O2 Saturation 97 % (92-99) Arterial Blood pH 7.42 (7.35-7.45) Arterial Blood pCO2 at Patient Temp 41 mmHg (35-46) Arterial Blood pO2 at Patient Temp 105 mmHg (75-108) Arterial Blood HCO3 26 mmol/L (21-28) Arterial Blood Base Excess 1 mmol/L (-3-3) FiO2 40 Glucose (Fingerstick) 325 mg/dL (70-99) 305 mg/dL (70-99) Problem List Problems Medical Problems: (1) Acute pancreatitis Status: Acute (2) Nausea & vomiting Status: Acute Assessment/Plan cont supportive care appears stable cont to avoid necrosectomy unless clinically worsens KARLA CALL MD Jun 20, 2019 12:55
--- NOTE | 2019-06-20 12:57 | NUR ---
Pharmacy TPN Dosing Note S: CHRISTOPHER NEWSOME is a 49 year old M Currently receiving Central Continuous TPN started 06/19/19 B:Pertinent PMH: PANCREATITIS Height: 5 feet, 9 inches Weight: 99.7 kg Current diet: NPO LABS: Sodium: 153 Potassium: 4.8 Chloride: 119 Calcium: 7.2 Corrected Calcium: 9.04 Magnesium: 2.9 CO2: 41 SCr: 1.6 Glucose: 305-341 Albumin: 1.7 AST: ALT: TPN FORMULA: TPN TYPE: Central Continuous AMINO ACIDS: 100 gm DEXTROSE: 200 gm LIPIDS: 20 gm SODIUM CHLORIDE: mEq SODIUM ACETATE: mEq SODIUM PHOSPHATE: mmol POTASSIUM CHLORIDE: mEq POTASSIUM ACETATE: mEq POTASSIUM PHOSPHATE: 13.6 mmol MAGNESIUM: - mEq CALCIUM: 20 mEq INSULIN: units MULTIPLE VITAMIN: 10 ml TRACE ELEMENTS: MTE 5 0.5 ML ml(s) TPN PLAN: -hypernatremia: resolving with free water admin, TPN -hyperglycemia: getting SSI, adding 10 units insulin to TPN Removed magnesium from TPN for trending up magnesium. No other changes. BMP/phos/mag in AM, trig sunday. R: Continue TPN as above. Will monitor electrolytes, glucose, and tolerance to TPN. RENEE EVERETT [facility], 06/20/19 1257
--- NOTE | 2019-06-20 13:25 | RAD ---
Procedure: Ultrasound-guided placement of right internal jugular central venous catheter06/20/2019 11:22 AM Clinical Indication: poor peripheral access, nutrition Discussion: The risks and benefits of the procedure were discussed the patient and/or their medical detail representative. Informed consent was obtained. A timeout procedure was performed. All elements of maximal sterile barrier technique including the use of a cap, mask, sterile gown, sterile gloves, large sterile sheet, appropriate hand hygiene, and 2% chlorhexidine for cutaneous antisepsis (or acceptable alternative antiseptic per current guidelines) were followed for this procedure. The patient was prepped and draped in the usual sterile fashion. Ultrasound interrogation of the right neck revealed patency and compressibility of the right internal jugular vein. A 21-gauge micropuncture was then used to gain access to this vein under ultrasound guidance. A hard copy ultrasound image was recorded. A guidewire was advanced centrally. 5 Amharic sheath was placed. Over a wire following dilatation, a triple-lumen central venous catheter was advanced centrally. Catheter was found to flush and aspirate normally. Follow-up chest radiograph demonstrates tip at the cavoatrial junction. Catheter secured in place and a sterile dressing was applied. No immediate complications were identified. Impression: Successful ultrasound-guided placement of right internal jugular triple-lumen central venous catheter
--- NOTE | 2019-06-20 16:39 | NUR ---
Sedation off at 0820, turned Precedex up to 1.5mcg. Patient tracking with his eyes and able to wiggle fingers and toes at 1130. Placed on spontaneous breathing trial at 1130. Patient made it the 30 min with a lot of encouragement to remain calm and take slow deep breaths. Although, at 1155 patient's BP 190's/100's, RR 30'S, HR 120's. Patient was re sedated at that time back on AC mode.
[2019-06-20] MEDS: ACETAMINOPHEN 650 MG SUPP.RECT. PR PRN (18:21)
[2019-06-20] MEDS ORDERED: INSULIN GLARGINE SYRINGE. SQ SCH (21:00)
[2019-06-20] MEDS: ENOXAPARIN 40 MG/0.4 ML SYRINGE. SQ SCH (21:57)
[2019-06-20] MEDS ORDERED: AMINO ACID IV SCH ×8 (22:00)
[2019-06-20] MEDS ORDERED: TOTAL PARENTERAL NUTRITION IV SCH ×8 (22:00)
[2019-06-20] MEDS ORDERED: [UNRECOGNIZED DRUG - OTHER] IV SCH ×8 (22:00)
[2019-06-20] MEDS ORDERED: DEXTROSE 70% IV SCH ×8 (22:00)
[2019-06-21] VITALS (24 sets, daily range): BP systolic 96–194; BP diastolic 56–113
[2019-06-21] MEDS: DEXMEDETOMIDINE 400 MCG in IV NORMAL SALINE 100ML 96 ML IV PRN ×3 (00:08→05:52)
[2019-06-21] MEDS: MEROPENEM 500 MG in IV NORMAL SALINE 50ML 50 ML IV SCH ×5 (00:08→23:34)
[2019-06-21] MEDS: INSULIN LISPRO 300 UNITS/3 ML VIAL. SQ SCH ×7 (00:09→23:36)
[2019-06-21] MEDS: ACETAMINOPHEN 650 MG SUPP.RECT. PR PRN ×2 (03:42→19:39)
--- NOTE | 2019-06-21 05:30 | RAD ---
PORTABLE CHEST 1V History: Respiratory failure. Comparison: June 20, 2019 Findings: Patchy bibasilar opacities, unchanged. Small left pleural effusion, unchanged. Stable endotracheal tube and right IJ central lines. Low lung volumes. No pneumothorax. Interval retraction of enteric tube with tip projecting over the proximal stomach. Impression: 1. Interval retraction of enteric tube with tip projecting over the proximal stomach. 2. Otherwise, no significant interval change compared to prior. Electronically signed by: Khurram Faust DO (06/21/2019 5:27 AM) [id number]
[2019-06-21] MEDS: PANTOPRAZOLE IV PUSH 40 MG VIAL. IVP SCH ×2 (05:51→17:14)
[2019-06-21 05:53] LABS: BASO % 0 % (0-3); EOS # 0.1 x10^3/uL (0.0-0.7); EOS % 0 % (0-3); HEMATOCRIT 29.2 % (39.0-53.0); HEMOGLOBIN 9.4 g/dL (13.0-17.5); LYMPH # 0.8 x10^3/uL (1.0-4.8); LYMPH % 5 % (24-48); MEAN CORPUSCULAR HEMOGLOBIN 29 pg (25-35); MEAN CORPUSCULAR HGB CONC 32 g/dL (31-37); MEAN CORPUSCULAR VOLUME 90 fL (79-100); MONO # 0.5 x10^3/uL (0.0-1.1); MONO % 3 % (0-9); NEUT # 14.6 x10^3/uL (1.8-7.7); NEUT % 91 % (31-73); PLATELET COUNT 271 x10^3/uL (140-400); RED BLOOD COUNT 3.24 x10^6/uL (4.30-5.70); RED CELL DISTRIBUTION WIDTH 14.6 % (11.5-14.5); WHITE BLOOD COUNT 16.1 x10^3/uL (4.0-11.0)
[2019-06-21 06:06] LABS: ALBUMIN 1.6 g/dL (3.4-5.0); CREATININE 1.5 mg/dL (0.7-1.3); GFR 60.2; PHOSPHORUS 2.8 mg/dL (2.6-4.7); POTASSIUM 4.6 mmol/L (3.5-5.1)
--- NOTE | 2019-06-21 08:30 | PDOC ---
Infectious Disease Note Subjective Subjective Fevers Tmax 101.1 Intubated, FiO2 40% Sedated TPN ROS ROS Unobtainable Vital Sign Vital Signs Vital Signs Date Time Temp Pulse Resp B/P (MAP) Pulse Ox O2 Delivery O2 Flow Rate FiO2 06/21/19 07:38 99 Ventilator 06/21/19 06:00 82 18 117/71 (86) 06/21/19 04:00 100.9 100.9 Physical Exam PHYSICAL EXAM GENERAL: Sedated, orally intubated on vent, mitts HEENT: Pupils equal, small. OGT/ETT in place NECK: Supple no JVD LUNGS: Diminished aeration bases HEART: S1, S2, regular, no murmurs. ABDOMEN: Distended, fairly tight, grimaces/guards to palpation : [place] EXTREMITIES: Trace edema, no cyanosis. SCDs bilaterally SKIN: Warm, dry. 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 RIJ & RIJ/HD catheter (06/19) Labs Lab Laboratory Tests Test 06/20/19 11:54 06/20/19 15:52 06/20/19 20:01 06/21/19 00:07 Glucose (Fingerstick) 305 mg/dL (70-99) 313 mg/dL (70-99) 286 mg/dL (70-99) 297 mg/dL (70-99) Test 06/21/19 04:06 06/21/19 05:35 Glucose (Fingerstick) 254 mg/dL (70-99) White Blood Count 16.1 x10^3/uL (4.0-11.0) Red Blood Count 3.24 x10^6/uL (4.30-5.70) Hemoglobin 9.4 g/dL (13.0-17.5) Hematocrit 29.2 % (39.0-53.0) Mean Corpuscular Volume 90 fL (79-100) Mean Corpuscular Hemoglobin 29 pg (25-35) Mean Corpuscular Hemoglobin Concent 32 g/dL (31-37) Red Cell Distribution Width 14.6 % (11.5-14.5) Platelet Count 271 x10^3/uL (140-400) Neutrophils (%) (Auto) 91 % (31-73) Lymphocytes (%) (Auto) 5 % (24-48) Monocytes (%) (Auto) 3 % (0-9) Eosinophils (%) (Auto) 0 % (0-3) Basophils (%) (Auto) 0 % (0-3) Neutrophils # (Auto) 14.6 x10^3/uL (1.8-7.7) Lymphocytes # (Auto) 0.8 x10^3/uL (1.0-4.8) Monocytes # (Auto) 0.5 x10^3/uL (0.0-1.1) Eosinophils # (Auto) 0.1 x10^3/uL (0.0-0.7) Basophils # (Auto) 0.0 x10^3/uL (0.0-0.2) Sodium Level 157 mmol/L (136-145) Potassium Level 4.6 mmol/L (3.5-5.1) Chloride Level 120 mmol/L (98-107) Carbon Dioxide Level 30 mmol/L (21-32) Anion Gap 7 (6-14) Blood Urea Nitrogen 37 mg/dL (8-26) Creatinine 1.5 mg/dL (0.7-1.3) Estimated GFR (Cockcroft-Gault) 60.2 Glucose Level 278 mg/dL (70-99) Calcium Level 8.0 mg/dL (8.5-10.1) Phosphorus Level 2.8 mg/dL (2.6-4.7) Magnesium Level 2.4 mg/dL (1.8-2.4) Albumin 1.6 g/dL (3.4-5.0) Micro Microbiology 06/12/19 Blood Culture - Preliminary, Resulted NO GROWTH AFTER 1 DAY Objective Assessment Fever Leukocytosis -stable Gallbladder stone pancreatitis - lipase 475 06/15.- better. CT 06/15 - Fluid collection along the inferior aspect of the stomach measures 9.6 x 4.0 cm. Loculated fluid collection along the anterior aspect of the pancreas measures 3.0 x 2.6 cm -per surgery Sepsis from GI - cult neg Acute Resp failure - intubated Lactic acidosis. Acute kidney injury previously requiring dialysis - now with improved UOP, HDC (06/13) Metabolic acidosis. Hypocalcemia Basilar atelectasis. Plan Plan of Care Continue empiric merrem and micafungin (06/19) Zyvox added BC neg Maintain aspiration precaution. D/w nursing Critically ill Attending Co-Sign The patient was seen and interviewed as well as examined at the bedside. The chart was reviewed. The case was discussed. Agree with the plan of care. TANVI GORE APRN Jun 21, 2019 08:30 KRISTIAN GOODMAN MD Jun 21, 2019 11:14
[2019-06-21 08:41] LABS: BASE EXCESS ABG 1 mmol/L (-3-3); HCO3 ABG 25 mmol/L (21-28); PCO2 ABG 38 mmHg (35-46); PO2 ABG 114 mmHg (75-108); SAT O2 ABG 98 % (92-99)
[2019-06-21 08:53] LABS: FIO2 ABG 40
[2019-06-21] MEDS: MICAFUNGIN 100 MG in IV DEXTROSE 5% 100ML 100 ML IV SCH (09:00)
[2019-06-21] MEDS: HYDROmorphone 2 MG/ML VIAL IV PRN ×3 (09:16→14:36)
[2019-06-21 09:35] LABS: % ATYL 2 % (0-0); % BANDS 22 % (0-9); % LYMPHS 3 % (24-48); % MYELOS 2 % (0-0); % SEGS 71 % (35-66); PLT ESTIMATE ADEQUATE (ADEQUATE)
[2019-06-21 09:36] LABS: TOXIC GRANULATION PRESENT; TOXIC VACUOLATION PRESENT
--- NOTE | 2019-06-21 09:44 | PDOC ---
PULMONARY PROGRESS NOTES Subjective remains on [facility]. ventilation, intubated no overnight concerns from nursing Vitals Vital Signs Date Time Temp Pulse Resp B/P (MAP) Pulse Ox O2 Delivery O2 Flow Rate FiO2 06/21/19 09:16 18 99 Ventilator 06/21/19 06:00 82 117/71 (86) 06/21/19 04:00 100.9 100.9 Comments intubated/sedated Lungs: Clear Cardiovascular: S1, S2 Abdomen: Other (/distended/firm ) Extremities: No Edema Skin: Warm Labs Laboratory Tests Test 06/19/19 12:08 06/19/19 15:50 06/19/19 19:55 06/20/19 00:27 Glucose (Fingerstick) 252 mg/dL (70-99) 219 mg/dL (70-99) 197 mg/dL (70-99) 276 mg/dL (70-99) Test 06/20/19 04:18 06/20/19 06:20 06/20/19 07:00 06/20/19 07:34 Glucose (Fingerstick) 283 mg/dL (70-99) 325 mg/dL (70-99) White Blood Count 16.2 x10^3/uL (4.0-11.0) Red Blood Count 3.22 x10^6/uL (4.30-5.70) Hemoglobin 9.4 g/dL (13.0-17.5) Hematocrit 29.0 % (39.0-53.0) Mean Corpuscular Volume 90 fL (79-100) Mean Corpuscular Hemoglobin 29 pg (25-35) Mean Corpuscular Hemoglobin Concent 32 g/dL (31-37) Red Cell Distribution Width 14.8 % (11.5-14.5) Platelet Count 246 x10^3/uL (140-400) Neutrophils (%) (Auto) 93 % (31-73) Lymphocytes (%) (Auto) 4 % (24-48) Monocytes (%) (Auto) 3 % (0-9) Eosinophils (%) (Auto) 0 % (0-3) Basophils (%) (Auto) 0 % (0-3) Neutrophils # (Auto) 15.0 x10^3/uL (1.8-7.7) Lymphocytes # (Auto) 0.7 x10^3/uL (1.0-4.8) Monocytes # (Auto) 0.5 x10^3/uL (0.0-1.1) Eosinophils # (Auto) 0.0 x10^3/uL (0.0-0.7) Basophils # (Auto) 0.0 x10^3/uL (0.0-0.2) Sodium Level 153 mmol/L (136-145) Potassium Level 4.8 mmol/L (3.5-5.1) Chloride Level 119 mmol/L (98-107) Carbon Dioxide Level 30 mmol/L (21-32) Anion Gap 4 (6-14) Blood Urea Nitrogen 41 mg/dL (8-26) Creatinine 1.6 mg/dL (0.7-1.3) Estimated GFR (Cockcroft-Gault) 55.9 Glucose Level 345 mg/dL (70-99) Calcium Level 7.2 mg/dL (8.5-10.1) Phosphorus Level 2.8 mg/dL (2.6-4.7) Magnesium Level 2.9 mg/dL (1.8-2.4) Albumin 1.6 g/dL (3.4-5.0) O2 Saturation 97 % (92-99) Arterial Blood pH 7.42 (7.35-7.45) Arterial Blood pCO2 at Patient Temp 41 mmHg (35-46) Arterial Blood pO2 at Patient Temp 105 mmHg (75-108) Arterial Blood HCO3 26 mmol/L (21-28) Arterial Blood Base Excess 1 mmol/L (-3-3) FiO2 40 Test 06/20/19 11:54 06/20/19 15:52 06/20/19 20:01 06/21/19 00:07 Glucose (Fingerstick) 305 mg/dL (70-99) 313 mg/dL (70-99) 286 mg/dL (70-99) 297 mg/dL (70-99) Test 06/21/19 04:06 06/21/19 05:35 06/21/19 08:15 06/21/19 09:23 Glucose (Fingerstick) 254 mg/dL (70-99) 255 mg/dL (70-99) White Blood Count 16.1 x10^3/uL (4.0-11.0) Red Blood Count 3.24 x10^6/uL (4.30-5.70) Hemoglobin 9.4 g/dL (13.0-17.5) Hematocrit 29.2 % (39.0-53.0) Mean Corpuscular Volume 90 fL (79-100) Mean Corpuscular Hemoglobin 29 pg (25-35) Mean Corpuscular Hemoglobin Concent 32 g/dL (31-37) Red Cell Distribution Width 14.6 % (11.5-14.5) Platelet Count 271 x10^3/uL (140-400) Neutrophils (%) (Auto) 91 % (31-73) Lymphocytes (%) (Auto) 5 % (24-48) Monocytes (%) (Auto) 3 % (0-9) Eosinophils (%) (Auto) 0 % (0-3) Basophils (%) (Auto) 0 % (0-3) Neutrophils # (Auto) 14.6 x10^3/uL (1.8-7.7) Lymphocytes # (Auto) 0.8 x10^3/uL (1.0-4.8) Monocytes # (Auto) 0.5 x10^3/uL (0.0-1.1) Eosinophils # (Auto) 0.1 x10^3/uL (0.0-0.7) Basophils # (Auto) 0.0 x10^3/uL (0.0-0.2) Segmented Neutrophils % 71 % (35-66) Band Neutrophils % 22 % (0-9) Lymphocytes % 3 % (24-48) Atypical Lymphocytes % (Manual) 2 % (0-0) Myelocytes % 2 % (0-0) Toxic Granulation Present Toxic Vacuolation Present Platelet Estimate Adequate (ADEQUATE) Large Platelets Few Sodium Level 157 mmol/L (136-145) Potassium Level 4.6 mmol/L (3.5-5.1) Chloride Level 120 mmol/L (98-107) Carbon Dioxide Level 30 mmol/L (21-32) Anion Gap 7 (6-14) Blood Urea Nitrogen 37 mg/dL (8-26) Creatinine 1.5 mg/dL (0.7-1.3) Estimated GFR (Cockcroft-Gault) 60.2 Glucose Level 278 mg/dL (70-99) Calcium Level 8.0 mg/dL (8.5-10.1) Phosphorus Level 2.8 mg/dL (2.6-4.7) Magnesium Level 2.4 mg/dL (1.8-2.4) Albumin 1.6 g/dL (3.4-5.0) O2 Saturation 98 % (92-99) Arterial Blood pH 7.43 (7.35-7.45) Arterial Blood pCO2 at Patient Temp 38 mmHg (35-46) Arterial Blood pO2 at Patient Temp 114 mmHg (75-108) Arterial Blood HCO3 25 mmol/L (21-28) Arterial Blood Base Excess 1 mmol/L (-3-3) FiO2 40 Laboratory Tests Test 06/20/19 11:54 06/20/19 15:52 06/20/19 20:01 06/21/19 00:07 Glucose (Fingerstick) 305 mg/dL (70-99) 313 mg/dL (70-99) 286 mg/dL (70-99) 297 mg/dL (70-99) Test 06/21/19 04:06 06/21/19 05:35 06/21/19 08:15 06/21/19 09:23 Glucose (Fingerstick) 254 mg/dL (70-99) 255 mg/dL (70-99) White Blood Count 16.1 x10^3/uL (4.0-11.0) Red Blood Count 3.24 x10^6/uL (4.30-5.70) Hemoglobin 9.4 g/dL (13.0-17.5) Hematocrit 29.2 % (39.0-53.0) Mean Corpuscular Volume 90 fL (79-100) Mean Corpuscular Hemoglobin 29 pg (25-35) Mean Corpuscular Hemoglobin Concent 32 g/dL (31-37) Red Cell Distribution Width 14.6 % (11.5-14.5) Platelet Count 271 x10^3/uL (140-400) Neutrophils (%) (Auto) 91 % (31-73) Lymphocytes (%) (Auto) 5 % (24-48) Monocytes (%) (Auto) 3 % (0-9) Eosinophils (%) (Auto) 0 % (0-3) Basophils (%) (Auto) 0 % (0-3) Neutrophils # (Auto) 14.6 x10^3/uL (1.8-7.7) Lymphocytes # (Auto) 0.8 x10^3/uL (1.0-4.8) Monocytes # (Auto) 0.5 x10^3/uL (0.0-1.1) Eosinophils # (Auto) 0.1 x10^3/uL (0.0-0.7) Basophils # (Auto) 0.0 x10^3/uL (0.0-0.2) Segmented Neutrophils % 71 % (35-66) Band Neutrophils % 22 % (0-9) Lymphocytes % 3 % (24-48) Atypical Lymphocytes % (Manual) 2 % (0-0) Myelocytes % 2 % (0-0) Toxic Granulation Present Toxic Vacuolation Present Platelet Estimate Adequate (ADEQUATE) Large Platelets Few Sodium Level 157 mmol/L (136-145) Potassium Level 4.6 mmol/L (3.5-5.1) Chloride Level 120 mmol/L (98-107) Carbon Dioxide Level 30 mmol/L (21-32) Anion Gap 7 (6-14) Blood Urea Nitrogen 37 mg/dL (8-26) Creatinine 1.5 mg/dL (0.7-1.3) Estimated GFR (Cockcroft-Gault) 60.2 Glucose Level 278 mg/dL (70-99) Calcium Level 8.0 mg/dL (8.5-10.1) Phosphorus Level 2.8 mg/dL (2.6-4.7) Magnesium Level 2.4 mg/dL (1.8-2.4) Albumin 1.6 g/dL (3.4-5.0) O2 Saturation 98 % (92-99) Arterial Blood pH 7.43 (7.35-7.45) Arterial Blood pCO2 at Patient Temp 38 mmHg (35-46) Arterial Blood pO2 at Patient Temp 114 mmHg (75-108) Arterial Blood HCO3 25 mmol/L (21-28) Arterial Blood Base Excess 1 mmol/L (-3-3) FiO2 40 Medications Active Scripts Medications Dose Route/Sig Max Daily Dose Days Date Category Comments 06/20 CX reviewed no change Impression . IMPRESSION: 1. Acute hypoxemic respiratory failure, multifactorial. 2. Acute gallstone pancreatitis./ Necrosis 3. Acute kidney failure. improving 4. Metabolic toxic encephalopathy. 5. Hyperkalemia.corrected 6. Metabolic / respiratory acidosis 7. Hypocalcemia. 8. POSSIBLE ABD COMPARTMENT SYNDROME PRESSURE 20 9. HEP B S POSITIVE 10. Hypernatremia Plan . attempt PS trial today, A/C overnight PRN suctioning, NEBS Pain control: fent gtt Follow CXR/ABG Lipase continues to improve ABX per ID Follow surgery recs--- no surgery at this time D/W RN/RT TAYA PEREIRA MD Jun 21, 2019 09:44
--- NOTE | 2019-06-21 10:05 | PDOC ---
GI PROGRESS NOTES Date Date/Time DATE: 06/21/19 TIME: 10:02 Subjective Subjective Pancreatitis On vent, NGT in place with some bilious outpt Objective Vitals Vital Signs Date Time Temp Pulse Resp B/P (MAP) Pulse Ox O2 Delivery O2 Flow Rate FiO2 06/21/19 09:58 100 Ventilator 06/21/19 09:16 18 99 Ventilator 06/21/19 07:38 99 Ventilator 06/21/19 06:14 99 Ventilator 06/21/19 06:00 82 18 117/71 (86) 99 Ventilator 06/21/19 05:00 91 18 154/94 (114) 99 Ventilator 06/21/19 04:22 99 Ventilator 06/21/19 04:00 Mechanical Ventilator 06/21/19 04:00 100.9 90 18 117/72 (87) 100 Ventilator 100.9 06/21/19 03:07 Ventilator 06/21/19 03:04 79 18 96/57 (70) 100 Ventilator 06/21/19 02:32 Ventilator 06/21/19 02:00 79 20 98/58 (71) 99 Ventilator 06/21/19 01:00 92 20 108/70 (83) 100 Ventilator 06/21/19 00:38 99 Ventilator 06/21/19 00:00 100.6 82 20 96/56 (69) 100 Ventilator 100.6 06/21/19 00:00 Mechanical Ventilator 06/20/19 23:00 77 20 97/56 (70) 100 Ventilator 06/20/19 22:25 99 Ventilator 06/20/19 22:00 89 20 106/65 (79) 100 Ventilator 06/20/19 21:44 Ventilator 06/20/19 21:00 85 20 109/60 (76) 100 Ventilator 06/20/19 20:45 Ventilator 06/20/19 20:14 99 Ventilator 06/20/19 20:00 100.9 90 20 98/61 (73) 100 Ventilator 100.9 06/20/19 20:00 Mechanical Ventilator 06/20/19 19:00 80 20 97/60 (72) 100 Ventilator 06/20/19 18:09 99 Ventilator 06/20/19 18:00 82 20 103/66 (78) 98 Ventilator 06/20/19 17:00 89 14 123/81 (95) 99 Ventilator 06/20/19 16:00 Mechanical Ventilator 06/20/19 16:00 101.1 86 14 120/76 (91) 100 Ventilator 101.1 06/20/19 15:29 99 Ventilator 06/20/19 15:00 78 14 107/72 (84) 98 Ventilator 06/20/19 14:50 16 99 Ventilator 06/20/19 14:12 99 Ventilator 06/20/19 14:00 80 16 125/78 (94) 100 Ventilator 06/20/19 13:41 25 100 Ventilator 06/20/19 13:00 75 16 102/67 (79) 99 Ventilator 06/20/19 12:00 100 Ventilator 06/20/19 12:00 100.2 79 16 119/75 (90) 98 Ventilator 100.2 06/20/19 11:40 Mechanical Ventilator 06/20/19 11:34 100 Ventilator 06/20/19 11:00 83 18 161/94 (116) 100 Ventilator Labs Labs Laboratory Tests Test 06/20/19 11:54 06/20/19 15:52 06/20/19 20:01 06/21/19 00:07 Glucose (Fingerstick) 305 mg/dL (70-99) 313 mg/dL (70-99) 286 mg/dL (70-99) 297 mg/dL (70-99) Test 06/21/19 04:06 06/21/19 05:35 06/21/19 08:15 06/21/19 09:23 Glucose (Fingerstick) 254 mg/dL (70-99) 255 mg/dL (70-99) White Blood Count 16.1 x10^3/uL (4.0-11.0) Red Blood Count 3.24 x10^6/uL (4.30-5.70) Hemoglobin 9.4 g/dL (13.0-17.5) Hematocrit 29.2 % (39.0-53.0) Mean Corpuscular Volume 90 fL (79-100) Mean Corpuscular Hemoglobin 29 pg (25-35) Mean Corpuscular Hemoglobin Concent 32 g/dL (31-37) Red Cell Distribution Width 14.6 % (11.5-14.5) Platelet Count 271 x10^3/uL (140-400) Neutrophils (%) (Auto) 91 % (31-73) Lymphocytes (%) (Auto) 5 % (24-48) Monocytes (%) (Auto) 3 % (0-9) Eosinophils (%) (Auto) 0 % (0-3) Basophils (%) (Auto) 0 % (0-3) Neutrophils # (Auto) 14.6 x10^3/uL (1.8-7.7) Lymphocytes # (Auto) 0.8 x10^3/uL (1.0-4.8) Monocytes # (Auto) 0.5 x10^3/uL (0.0-1.1) Eosinophils # (Auto) 0.1 x10^3/uL (0.0-0.7) Basophils # (Auto) 0.0 x10^3/uL (0.0-0.2) Segmented Neutrophils % 71 % (35-66) Band Neutrophils % 22 % (0-9) Lymphocytes % 3 % (24-48) Atypical Lymphocytes % (Manual) 2 % (0-0) Myelocytes % 2 % (0-0) Toxic Granulation Present Toxic Vacuolation Present Platelet Estimate Adequate (ADEQUATE) Large Platelets Few Sodium Level 157 mmol/L (136-145) Potassium Level 4.6 mmol/L (3.5-5.1) Chloride Level 120 mmol/L (98-107) Carbon Dioxide Level 30 mmol/L (21-32) Anion Gap 7 (6-14) Blood Urea Nitrogen 37 mg/dL (8-26) Creatinine 1.5 mg/dL (0.7-1.3) Estimated GFR (Cockcroft-Gault) 60.2 Glucose Level 278 mg/dL (70-99) Calcium Level 8.0 mg/dL (8.5-10.1) Phosphorus Level 2.8 mg/dL (2.6-4.7) Magnesium Level 2.4 mg/dL (1.8-2.4) Albumin 1.6 g/dL (3.4-5.0) O2 Saturation 98 % (92-99) Arterial Blood pH 7.43 (7.35-7.45) Arterial Blood pCO2 at Patient Temp 38 mmHg (35-46) Arterial Blood pO2 at Patient Temp 114 mmHg (75-108) Arterial Blood HCO3 25 mmol/L (21-28) Arterial Blood Base Excess 1 mmol/L (-3-3) FiO2 40 Physical Exam Physical Exam sedated on vent NGT in place chest clear cor- RRR abd- mildly distended, no bowel sounds Assessment Assessment Complicated pancreatitis with adynamic ileus and respiratory failure on vent. NGT in place with some bilious outpt Plan Plan supportive care monitor labs and clinical course repeat CT next week Hemodynamically unstable?: Yes Is patient in severe pain?: Yes Is NPO status required?: Yes GARCÍA GUERRERO MD Jun 21, 2019 10:05
--- NOTE | 2019-06-21 10:18 | PDOC ---
MAXIMILIANO MELGOZA [employer]CH[employer]IC 06/21/19 1018: SURGICAL PROGRESS NOTE Subjective d/w nursing, more distended unable to decrease sedation, decompensation Vital Signs Vital Signs Date Time Temp Pulse Resp B/P (MAP) Pulse Ox O2 Delivery O2 Flow Rate FiO2 06/21/19 09:58 100 Ventilator 06/21/19 09:16 18 06/21/19 06:00 82 117/71 (86) 06/21/19 04:00 100.9 100.9 I&O Intake and Output 06/21/19 07:00 Intake Total 4541.81 ml Output Total 2225 ml Balance 2316.81 ml IV Total 3331.81 ml Other 1210 ml Output Urine Total 2100 ml Gastric Drainage Total 125 ml PATIENT HAS A LEPE: Yes General: Other (sedated ) HEENT: Other (ng bilious ) Lungs: Other (vent) Abdomen: Other (tight, distended ) Labs Laboratory Tests Test 06/19/19 12:08 06/19/19 15:50 06/19/19 19:55 06/20/19 00:27 Glucose (Fingerstick) 252 mg/dL (70-99) 219 mg/dL (70-99) 197 mg/dL (70-99) 276 mg/dL (70-99) Test 06/20/19 04:18 06/20/19 06:20 06/20/19 07:00 06/20/19 07:34 Glucose (Fingerstick) 283 mg/dL (70-99) 325 mg/dL (70-99) White Blood Count 16.2 x10^3/uL (4.0-11.0) Red Blood Count 3.22 x10^6/uL (4.30-5.70) Hemoglobin 9.4 g/dL (13.0-17.5) Hematocrit 29.0 % (39.0-53.0) Mean Corpuscular Volume 90 fL (79-100) Mean Corpuscular Hemoglobin 29 pg (25-35) Mean Corpuscular Hemoglobin Concent 32 g/dL (31-37) Red Cell Distribution Width 14.8 % (11.5-14.5) Platelet Count 246 x10^3/uL (140-400) Neutrophils (%) (Auto) 93 % (31-73) Lymphocytes (%) (Auto) 4 % (24-48) Monocytes (%) (Auto) 3 % (0-9) Eosinophils (%) (Auto) 0 % (0-3) Basophils (%) (Auto) 0 % (0-3) Neutrophils # (Auto) 15.0 x10^3/uL (1.8-7.7) Lymphocytes # (Auto) 0.7 x10^3/uL (1.0-4.8) Monocytes # (Auto) 0.5 x10^3/uL (0.0-1.1) Eosinophils # (Auto) 0.0 x10^3/uL (0.0-0.7) Basophils # (Auto) 0.0 x10^3/uL (0.0-0.2) Sodium Level 153 mmol/L (136-145) Potassium Level 4.8 mmol/L (3.5-5.1) Chloride Level 119 mmol/L (98-107) Carbon Dioxide Level 30 mmol/L (21-32) Anion Gap 4 (6-14) Blood Urea Nitrogen 41 mg/dL (8-26) Creatinine 1.6 mg/dL (0.7-1.3) Estimated GFR (Cockcroft-Gault) 55.9 Glucose Level 345 mg/dL (70-99) Calcium Level 7.2 mg/dL (8.5-10.1) Phosphorus Level 2.8 mg/dL (2.6-4.7) Magnesium Level 2.9 mg/dL (1.8-2.4) Albumin 1.6 g/dL (3.4-5.0) O2 Saturation 97 % (92-99) Arterial Blood pH 7.42 (7.35-7.45) Arterial Blood pCO2 at Patient Temp 41 mmHg (35-46) Arterial Blood pO2 at Patient Temp 105 mmHg (75-108) Arterial Blood HCO3 26 mmol/L (21-28) Arterial Blood Base Excess 1 mmol/L (-3-3) FiO2 40 Test 06/20/19 11:54 06/20/19 15:52 06/20/19 20:01 06/21/19 00:07 Glucose (Fingerstick) 305 mg/dL (70-99) 313 mg/dL (70-99) 286 mg/dL (70-99) 297 mg/dL (70-99) Test 06/21/19 04:06 06/21/19 05:35 06/21/19 08:15 06/21/19 09:23 Glucose (Fingerstick) 254 mg/dL (70-99) 255 mg/dL (70-99) White Blood Count 16.1 x10^3/uL (4.0-11.0) Red Blood Count 3.24 x10^6/uL (4.30-5.70) Hemoglobin 9.4 g/dL (13.0-17.5) Hematocrit 29.2 % (39.0-53.0) Mean Corpuscular Volume 90 fL (79-100) Mean Corpuscular Hemoglobin 29 pg (25-35) Mean Corpuscular Hemoglobin Concent 32 g/dL (31-37) Red Cell Distribution Width 14.6 % (11.5-14.5) Platelet Count 271 x10^3/uL (140-400) Neutrophils (%) (Auto) 91 % (31-73) Lymphocytes (%) (Auto) 5 % (24-48) Monocytes (%) (Auto) 3 % (0-9) Eosinophils (%) (Auto) 0 % (0-3) Basophils (%) (Auto) 0 % (0-3) Neutrophils # (Auto) 14.6 x10^3/uL (1.8-7.7) Lymphocytes # (Auto) 0.8 x10^3/uL (1.0-4.8) Monocytes # (Auto) 0.5 x10^3/uL (0.0-1.1) Eosinophils # (Auto) 0.1 x10^3/uL (0.0-0.7) Basophils # (Auto) 0.0 x10^3/uL (0.0-0.2) Segmented Neutrophils % 71 % (35-66) Band Neutrophils % 22 % (0-9) Lymphocytes % 3 % (24-48) Atypical Lymphocytes % (Manual) 2 % (0-0) Myelocytes % 2 % (0-0) Toxic Granulation Present Toxic Vacuolation Present Platelet Estimate Adequate (ADEQUATE) Large Platelets Few Sodium Level 157 mmol/L (136-145) Potassium Level 4.6 mmol/L (3.5-5.1) Chloride Level 120 mmol/L (98-107) Carbon Dioxide Level 30 mmol/L (21-32) Anion Gap 7 (6-14) Blood Urea Nitrogen 37 mg/dL (8-26) Creatinine 1.5 mg/dL (0.7-1.3) Estimated GFR (Cockcroft-Gault) 60.2 Glucose Level 278 mg/dL (70-99) Calcium Level 8.0 mg/dL (8.5-10.1) Phosphorus Level 2.8 mg/dL (2.6-4.7) Magnesium Level 2.4 mg/dL (1.8-2.4) Albumin 1.6 g/dL (3.4-5.0) O2 Saturation 98 % (92-99) Arterial Blood pH 7.43 (7.35-7.45) Arterial Blood pCO2 at Patient Temp 38 mmHg (35-46) Arterial Blood pO2 at Patient Temp 114 mmHg (75-108) Arterial Blood HCO3 25 mmol/L (21-28) Arterial Blood Base Excess 1 mmol/L (-3-3) FiO2 40 Laboratory Tests Test 06/20/19 11:54 06/20/19 15:52 06/20/19 20:01 06/21/19 00:07 Glucose (Fingerstick) 305 mg/dL (70-99) 313 mg/dL (70-99) 286 mg/dL (70-99) 297 mg/dL (70-99) Test 06/21/19 04:06 06/21/19 05:35 06/21/19 08:15 06/21/19 09:23 Glucose (Fingerstick) 254 mg/dL (70-99) 255 mg/dL (70-99) White Blood Count 16.1 x10^3/uL (4.0-11.0) Red Blood Count 3.24 x10^6/uL (4.30-5.70) Hemoglobin 9.4 g/dL (13.0-17.5) Hematocrit 29.2 % (39.0-53.0) Mean Corpuscular Volume 90 fL (79-100) Mean Corpuscular Hemoglobin 29 pg (25-35) Mean Corpuscular Hemoglobin Concent 32 g/dL (31-37) Red Cell Distribution Width 14.6 % (11.5-14.5) Platelet Count 271 x10^3/uL (140-400) Neutrophils (%) (Auto) 91 % (31-73) Lymphocytes (%) (Auto) 5 % (24-48) Monocytes (%) (Auto) 3 % (0-9) Eosinophils (%) (Auto) 0 % (0-3) Basophils (%) (Auto) 0 % (0-3) Neutrophils # (Auto) 14.6 x10^3/uL (1.8-7.7) Lymphocytes # (Auto) 0.8 x10^3/uL (1.0-4.8) Monocytes # (Auto) 0.5 x10^3/uL (0.0-1.1) Eosinophils # (Auto) 0.1 x10^3/uL (0.0-0.7) Basophils # (Auto) 0.0 x10^3/uL (0.0-0.2) Segmented Neutrophils % 71 % (35-66) Band Neutrophils % 22 % (0-9) Lymphocytes % 3 % (24-48) Atypical Lymphocytes % (Manual) 2 % (0-0) Myelocytes % 2 % (0-0) Toxic Granulation Present Toxic Vacuolation Present Platelet Estimate Adequate (ADEQUATE) Large Platelets Few Sodium Level 157 mmol/L (136-145) Potassium Level 4.6 mmol/L (3.5-5.1) Chloride Level 120 mmol/L (98-107) Carbon Dioxide Level 30 mmol/L (21-32) Anion Gap 7 (6-14) Blood Urea Nitrogen 37 mg/dL (8-26) Creatinine 1.5 mg/dL (0.7-1.3) Estimated GFR (Cockcroft-Gault) 60.2 Glucose Level 278 mg/dL (70-99) Calcium Level 8.0 mg/dL (8.5-10.1) Phosphorus Level 2.8 mg/dL (2.6-4.7) Magnesium Level 2.4 mg/dL (1.8-2.4) Albumin 1.6 g/dL (3.4-5.0) O2 Saturation 98 % (92-99) Arterial Blood pH 7.43 (7.35-7.45) Arterial Blood pCO2 at Patient Temp 38 mmHg (35-46) Arterial Blood pO2 at Patient Temp 114 mmHg (75-108) Arterial Blood HCO3 25 mmol/L (21-28) Arterial Blood Base Excess 1 mmol/L (-3-3) FiO2 40 Problem List Problems Medical Problems: (1) Acute pancreatitis Status: Acute (2) Nausea & vomiting Status: Acute Assessment/Plan supportive measures will review with KARLA Montano MD 06/21/19 1652: SURGICAL PROGRESS NOTE Assessment/Plan Pt seen and examined. Agree with Ms. Melgoza's note Pt intubated and sedated, continues to have issues with tachycardia abd soft, NTTP, distended unable to wean from ventilator d/w pt's family, given persistence of issues with MOF, may benefit from earlier necrosectomy may also benefit from tracheostomy. MAXIMILIANO MELGOZA APRN Jun 21, 2019 10:18 KARLA CALL MD Jun 21, 2019 16:52
--- NOTE | 2019-06-21 10:47 | PDOC ---
PROGRESS NOTES History of Present Illness History of Present Illness ASSESSMENT AND PLAN: Acute hypoxemic respiratory failure, Severe pancreatitis. , GALLSTONE pancreatitis hypoattenuation of the pancreas, concerning for necrosis although evaluation degraded without IV contrast. 06/16 Severe biliary pancreatitis. Resp failure Renal failure MORBID OBESITY ACUTE HYPOXIC RESP FAILURE// ARDS HYPERKALEMIA hypocalcemia per nephrology replacement TRANSAMINITIS LACTIC ACIDOSIS SEPSIS VOLUME OVERLOAD HYPERGLYCEMIA, UNCONTROLLED HYPOCALCEMIA, REPLACE PER RENAL high surgical risk admitted consult GI, IV fluids, p.r.n. antiemetics, home medications, deep venous thrombosis prophylaxis. Full code. nephrology consult gen surgery consult GI CONSULT O2 SUPPORT lactic acid with reflex iv zosyn per pharmacy ID CONSULT BLOOD CULT BICARB DRIP prn temp dialysis catheter PULM CONSULT INSULIN DRIP PRN HOLD SURGERY, HIGH RISK FOR COMPLICATIONS orally intubated on vent, mitts ADD LANTUS 20 UNITS SQ HS 06/20 sedated on vent D/W RN PROGNOSIS: Guarded. 37 MIN CC TIME Vitals Vitals Vital Signs Date Time Temp Pulse Resp B/P (MAP) Pulse Ox O2 Delivery O2 Flow Rate FiO2 06/21/19 09:58 100 Ventilator 06/21/19 09:16 18 06/21/19 06:00 82 117/71 (86) 06/21/19 04:00 100.9 100.9 Physical Exam Physical Exam GENERAL: Sedated, orally intubated on vent, mitts HEENT: Pupils equal, small. OGT/ETT in place NECK: Supple no JVD LUNGS: Diminished aeration bases HEART: S1, S2, regular, no murmurs. ABDOMEN: Distended, fairly tight, grimaces/guards to palpation : [place] EXTREMITIES: Trace edema, no cyanosis. SCDs bilaterally SKIN: Warm, dry. 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 FLAME CUTTER: Sedated RIJ & RIJ/HD catheter (06/19) General: Other (sedated ) Heart: Other (ST, rate near 125-130) Lungs: Clear Abdomen: Other (tight, distended ) Extremities: No edema Skin: No significant lesion Labs LABS Laboratory Tests Test 06/20/19 11:54 06/20/19 15:52 06/20/19 20:01 06/21/19 00:07 Glucose (Fingerstick) 305 mg/dL (70-99) 313 mg/dL (70-99) 286 mg/dL (70-99) 297 mg/dL (70-99) Test 06/21/19 04:06 06/21/19 05:35 06/21/19 08:15 06/21/19 09:23 Glucose (Fingerstick) 254 mg/dL (70-99) 255 mg/dL (70-99) White Blood Count 16.1 x10^3/uL (4.0-11.0) Red Blood Count 3.24 x10^6/uL (4.30-5.70) Hemoglobin 9.4 g/dL (13.0-17.5) Hematocrit 29.2 % (39.0-53.0) Mean Corpuscular Volume 90 fL (79-100) Mean Corpuscular Hemoglobin 29 pg (25-35) Mean Corpuscular Hemoglobin Concent 32 g/dL (31-37) Red Cell Distribution Width 14.6 % (11.5-14.5) Platelet Count 271 x10^3/uL (140-400) Neutrophils (%) (Auto) 91 % (31-73) Lymphocytes (%) (Auto) 5 % (24-48) Monocytes (%) (Auto) 3 % (0-9) Eosinophils (%) (Auto) 0 % (0-3) Basophils (%) (Auto) 0 % (0-3) Neutrophils # (Auto) 14.6 x10^3/uL (1.8-7.7) Lymphocytes # (Auto) 0.8 x10^3/uL (1.0-4.8) Monocytes # (Auto) 0.5 x10^3/uL (0.0-1.1) Eosinophils # (Auto) 0.1 x10^3/uL (0.0-0.7) Basophils # (Auto) 0.0 x10^3/uL (0.0-0.2) Segmented Neutrophils % 71 % (35-66) Band Neutrophils % 22 % (0-9) Lymphocytes % 3 % (24-48) Atypical Lymphocytes % (Manual) 2 % (0-0) Myelocytes % 2 % (0-0) Toxic Granulation Present Toxic Vacuolation Present Platelet Estimate Adequate (ADEQUATE) Large Platelets Few Sodium Level 157 mmol/L (136-145) Potassium Level 4.6 mmol/L (3.5-5.1) Chloride Level 120 mmol/L (98-107) Carbon Dioxide Level 30 mmol/L (21-32) Anion Gap 7 (6-14) Blood Urea Nitrogen 37 mg/dL (8-26) Creatinine 1.5 mg/dL (0.7-1.3) Estimated GFR (Cockcroft-Gault) 60.2 Glucose Level 278 mg/dL (70-99) Calcium Level 8.0 mg/dL (8.5-10.1) Phosphorus Level 2.8 mg/dL (2.6-4.7) Magnesium Level 2.4 mg/dL (1.8-2.4) Albumin 1.6 g/dL (3.4-5.0) O2 Saturation 98 % (92-99) Arterial Blood pH 7.43 (7.35-7.45) Arterial Blood pCO2 at Patient Temp 38 mmHg (35-46) Arterial Blood pO2 at Patient Temp 114 mmHg (75-108) Arterial Blood HCO3 25 mmol/L (21-28) Arterial Blood Base Excess 1 mmol/L (-3-3) FiO2 40 Assessment and Plan Assessmemt and Plan Problems Medical Problems: (1) Acute pancreatitis Status: Acute (2) Nausea & vomiting Status: Acute Comment Review of Relevant I have reviewed the following items alexandra (where applicable) has been applied. Labs Laboratory Tests Test 06/19/19 12:08 06/19/19 15:50 06/19/19 19:55 06/20/19 00:27 Glucose (Fingerstick) 252 mg/dL (70-99) 219 mg/dL (70-99) 197 mg/dL (70-99) 276 mg/dL (70-99) Test 06/20/19 04:18 06/20/19 06:20 06/20/19 07:00 06/20/19 07:34 Glucose (Fingerstick) 283 mg/dL (70-99) 325 mg/dL (70-99) White Blood Count 16.2 x10^3/uL (4.0-11.0) Red Blood Count 3.22 x10^6/uL (4.30-5.70) Hemoglobin 9.4 g/dL (13.0-17.5) Hematocrit 29.0 % (39.0-53.0) Mean Corpuscular Volume 90 fL (79-100) Mean Corpuscular Hemoglobin 29 pg (25-35) Mean Corpuscular Hemoglobin Concent 32 g/dL (31-37) Red Cell Distribution Width 14.8 % (11.5-14.5) Platelet Count 246 x10^3/uL (140-400) Neutrophils (%) (Auto) 93 % (31-73) Lymphocytes (%) (Auto) 4 % (24-48) Monocytes (%) (Auto) 3 % (0-9) Eosinophils (%) (Auto) 0 % (0-3) Basophils (%) (Auto) 0 % (0-3) Neutrophils # (Auto) 15.0 x10^3/uL (1.8-7.7) Lymphocytes # (Auto) 0.7 x10^3/uL (1.0-4.8) Monocytes # (Auto) 0.5 x10^3/uL (0.0-1.1) Eosinophils # (Auto) 0.0 x10^3/uL (0.0-0.7) Basophils # (Auto) 0.0 x10^3/uL (0.0-0.2) Sodium Level 153 mmol/L (136-145) Potassium Level 4.8 mmol/L (3.5-5.1) Chloride Level 119 mmol/L (98-107) Carbon Dioxide Level 30 mmol/L (21-32) Anion Gap 4 (6-14) Blood Urea Nitrogen 41 mg/dL (8-26) Creatinine 1.6 mg/dL (0.7-1.3) Estimated GFR (Cockcroft-Gault) 55.9 Glucose Level 345 mg/dL (70-99) Calcium Level 7.2 mg/dL (8.5-10.1) Phosphorus Level 2.8 mg/dL (2.6-4.7) Magnesium Level 2.9 mg/dL (1.8-2.4) Albumin 1.6 g/dL (3.4-5.0) O2 Saturation 97 % (92-99) Arterial Blood pH 7.42 (7.35-7.45) Arterial Blood pCO2 at Patient Temp 41 mmHg (35-46) Arterial Blood pO2 at Patient Temp 105 mmHg (75-108) Arterial Blood HCO3 26 mmol/L (21-28) Arterial Blood Base Excess 1 mmol/L (-3-3) FiO2 40 Test 3/6/20 11:54 06/20/19 15:52 06/20/19 20:01 06/21/19 00:07 Glucose (Fingerstick) 305 mg/dL (70-99) 313 mg/dL (70-99) 286 mg/dL (70-99) 297 mg/dL (70-99) Test 06/21/19 04:06 06/21/19 05:35 06/21/19 08:15 06/21/19 09:23 Glucose (Fingerstick) 254 mg/dL (70-99) 255 mg/dL (70-99) White Blood Count 16.1 x10^3/uL (4.0-11.0) Red Blood Count 3.24 x10^6/uL (4.30-5.70) Hemoglobin 9.4 g/dL (13.0-17.5) Hematocrit 29.2 % (39.0-53.0) Mean Corpuscular Volume 90 fL (79-100) Mean Corpuscular Hemoglobin 29 pg (25-35) Mean Corpuscular Hemoglobin Concent 32 g/dL (31-37) Red Cell Distribution Width 14.6 % (11.5-14.5) Platelet Count 271 x10^3/uL (140-400) Neutrophils (%) (Auto) 91 % (31-73) Lymphocytes (%) (Auto) 5 % (24-48) Monocytes (%) (Auto) 3 % (0-9) Eosinophils (%) (Auto) 0 % (0-3) Basophils (%) (Auto) 0 % (0-3) Neutrophils # (Auto) 14.6 x10^3/uL (1.8-7.7) Lymphocytes # (Auto) 0.8 x10^3/uL (1.0-4.8) Monocytes # (Auto) 0.5 x10^3/uL (0.0-1.1) Eosinophils # (Auto) 0.1 x10^3/uL (0.0-0.7) Basophils # (Auto) 0.0 x10^3/uL (0.0-0.2) Segmented Neutrophils % 71 % (35-66) Band Neutrophils % 22 % (0-9) Lymphocytes % 3 % (24-48) Atypical Lymphocytes % (Manual) 2 % (0-0) Myelocytes % 2 % (0-0) Toxic Granulation Present Toxic Vacuolation Present Platelet Estimate Adequate (ADEQUATE) Large Platelets Few Sodium Level 157 mmol/L (136-145) Potassium Level 4.6 mmol/L (3.5-5.1) Chloride Level 120 mmol/L (98-107) Carbon Dioxide Level 30 mmol/L (21-32) Anion Gap 7 (6-14) Blood Urea Nitrogen 37 mg/dL (8-26) Creatinine 1.5 mg/dL (0.7-1.3) Estimated GFR (Cockcroft-Gault) 60.2 Glucose Level 278 mg/dL (70-99) Calcium Level 8.0 mg/dL (8.5-10.1) Phosphorus Level 2.8 mg/dL (2.6-4.7) Magnesium Level 2.4 mg/dL (1.8-2.4) Albumin 1.6 g/dL (3.4-5.0) O2 Saturation 98 % (92-99) Arterial Blood pH 7.43 (7.35-7.45) Arterial Blood pCO2 at Patient Temp 38 mmHg (35-46) Arterial Blood pO2 at Patient Temp 114 mmHg (75-108) Arterial Blood HCO3 25 mmol/L (21-28) Arterial Blood Base Excess 1 mmol/L (-3-3) FiO2 40 Laboratory Tests Test 06/20/19 11:54 06/20/19 15:52 06/20/19 20:01 06/21/19 00:07 Glucose (Fingerstick) 305 mg/dL (70-99) 313 mg/dL (70-99) 286 mg/dL (70-99) 297 mg/dL (70-99) Test 06/21/19 04:06 06/21/19 05:35 06/21/19 08:15 06/21/19 09:23 Glucose (Fingerstick) 254 mg/dL (70-99) 255 mg/dL (70-99) White Blood Count 16.1 x10^3/uL (4.0-11.0) Red Blood Count 3.24 x10^6/uL (4.30-5.70) Hemoglobin 9.4 g/dL (13.0-17.5) Hematocrit 29.2 % (39.0-53.0) Mean Corpuscular Volume 90 fL (79-100) Mean Corpuscular Hemoglobin 29 pg (25-35) Mean Corpuscular Hemoglobin Concent 32 g/dL (31-37) Red Cell Distribution Width 14.6 % (11.5-14.5) Platelet Count 271 x10^3/uL (140-400) Neutrophils (%) (Auto) 91 % (31-73) Lymphocytes (%) (Auto) 5 % (24-48) Monocytes (%) (Auto) 3 % (0-9) Eosinophils (%) (Auto) 0 % (0-3) Basophils (%) (Auto) 0 % (0-3) Neutrophils # (Auto) 14.6 x10^3/uL (1.8-7.7) Lymphocytes # (Auto) 0.8 x10^3/uL (1.0-4.8) Monocytes # (Auto) 0.5 x10^3/uL (0.0-1.1) Eosinophils # (Auto) 0.1 x10^3/uL (0.0-0.7) Basophils # (Auto) 0.0 x10^3/uL (0.0-0.2) Segmented Neutrophils % 71 % (35-66) Band Neutrophils % 22 % (0-9) Lymphocytes % 3 % (24-48) Atypical Lymphocytes % (Manual) 2 % (0-0) Myelocytes % 2 % (0-0) Toxic Granulation Present Toxic Vacuolation Present Platelet Estimate Adequate (ADEQUATE) Large Platelets Few Sodium Level 157 mmol/L (136-145) Potassium Level 4.6 mmol/L (3.5-5.1) Chloride Level 120 mmol/L (98-107) Carbon Dioxide Level 30 mmol/L (21-32) Anion Gap 7 (6-14) Blood Urea Nitrogen 37 mg/dL (8-26) Creatinine 1.5 mg/dL (0.7-1.3) Estimated GFR (Cockcroft-Gault) 60.2 Glucose Level 278 mg/dL (70-99) Calcium Level 8.0 mg/dL (8.5-10.1) Phosphorus Level 2.8 mg/dL (2.6-4.7) Magnesium Level 2.4 mg/dL (1.8-2.4) Albumin 1.6 g/dL (3.4-5.0) O2 Saturation 98 % (92-99) Arterial Blood pH 7.43 (7.35-7.45) Arterial Blood pCO2 at Patient Temp 38 mmHg (35-46) Arterial Blood pO2 at Patient Temp 114 mmHg (75-108) Arterial Blood HCO3 25 mmol/L (21-28) Arterial Blood Base Excess 1 mmol/L (-3-3) FiO2 40 Microbiology 06/20/19 Blood Culture - Preliminary, Resulted NO GROWTH AFTER 1 DAY Medications Current Medications Morphine Sulfate (Morphine Sulfate) 4 mg PRN Q15MIN PRN IV/SQ PAIN GREATER THAN 3/10 Last administered on 06/11/19at 04:58; Start 06/11/19 at 04:30; Stop 06/11/19 at 16:47; Status DC Sodium Chloride 1,000 ml @ 1,000 mls/hr Q1H IV Last administered on 06/11/19at 04:34; Start 06/11/19 at 04:30; Stop 06/11/19 at 05:29; Status DC Ondansetron HCl (Zofran) 4 mg 1X ONCE IV Last administered on 06/11/19at 04:33; Start 06/11/19 at 04:30; Stop 06/11/19 at 04:33; Status DC Iohexol (Omnipaque 350 Mg/ml) 100 ml 1X ONCE IV Last administered on 06/11/19at 05:01; Start 06/11/19 at 04:45; Stop 06/11/19 at 04:46; Status DC Info (CONTRAST GIVEN -- Rx MONITORING) 1 each PRN DAILY PRN MC SEE COMMENTS; Start 06/11/19 at 04:45; Stop 06/13/19 at 04:44; Status DC Fentanyl Citrate (Fentanyl 2ml Vial) 100 mcg STK-MED ONCE .ROUTE ; Start 06/11/19 at 04:42; Stop 06/11/19 at 04:42; Status DC Fentanyl Citrate (Fentanyl 2ml Vial) 50 mcg 1X ONCE IVP Last administered on 06/11/19at 04:45; Start 06/11/19 at 05:00; Stop 06/11/19 at 05:01; Status DC Ondansetron HCl (Zofran) 4 mg PRN Q8HRS PRN IV NAUSEA/VOMITING Last administered on 06/12/19at 03:29; Start 06/11/19 at 05:45; Stop 06/12/19 at 05:44; Status DC Morphine Sulfate (Morphine Sulfate) 4 mg PRN Q2HR PRN IV PAIN Last administered on 06/11/19at 07:37; Start 06/11/19 at 05:45; Stop 06/11/19 at 11:54; Status DC Sodium Chloride 1,000 ml @ 150 mls/hr Q6H40M IV Last administered on 06/12/19at 03:28; Start 06/11/19 at 05:45; Stop 06/12/19 at 11:01; Status DC Hydromorphone HCl (Dilaudid) 0.5 mg PRN Q3HRS PRN IV PAIN Last administered on 06/11/19at 08:38; Start 06/11/19 at 05:45; Stop 06/11/19 at 09:12; Status DC Potassium Chloride/Water 100 ml @ 100 mls/hr Q1H IV Last administered on 06/11/19at 08:41; Start 06/11/19 at 06:00; Stop 06/11/19 at 07:59; Status DC Hydromorphone HCl (Dilaudid) 1 mg PRN Q3HRS PRN IV PAIN Last administered on 06/11/19at 09:29; Start 06/11/19 at 09:15; Stop 06/11/19 at 11:54; Status DC Prochlorperazine Edisylate (Compazine) 10 mg PRN Q8HRS PRN IV NAUSEA/VOMITING Last administered on 06/12/19at 14:59; Start 06/11/19 at 12:00 Hydromorphone HCl (Dilaudid) 1 mg PRN Q2HRS PRN IV PAIN Last administered on 06/21/19at 09:16; Start 06/11/19 at 12:00 Pantoprazole Sodium (PROTONIX VIAL for IV PUSH) 40 mg DAILYAC IVP Last administered on 06/12/19at 08:29; Start 06/11/19 at 15:00; Stop 06/12/19 at 16:23; Status DC Lorazepam (Ativan Inj) 1 mg PRN Q6HRS PRN IVP ANXIETY / AGITATION Last administered on 06/14/19at 13:00; Start 06/11/19 at 18:15 Hydralazine HCl (Apresoline Inj) 10 mg PRN Q6HRS PRN IVP ELEVATED BP, SEE COMMENTS Last administered on 06/18/19at 09:32; Start 06/11/19 at 18:15; Stop 06/21/19 at 09:12; Status DC Nystatin (Nystop) 1 devorah PRN QID PRN TP FUNGAL RASH Last administered on 06/11/19at 23:19; Start 06/11/19 at 23:15 Sodium Chloride 1,000 ml @ 1,000 mls/hr 1X ONCE IV Last administered on 06/12/19at 05:27; Start 06/12/19 at 06:00; Stop 06/12/19 at 06:59; Status DC Sodium Chloride 1,000 ml @ 1,000 mls/hr 1X ONCE IV Last administered on 06/12at 05:25; Start 06/12/19 at 05:00; Stop 06/12/19 at 05:59; Status DC Sodium Chloride 1,000 ml @ 200 mls/hr Q5H IV Last administered on 06/12/19at 06:36; Start 06/12/19 at 07:00; Stop 06/12/19 at 11:01; Status DC Sodium Bicarbonate 50 meq/Sodium Chloride 1,050 ml @ 150 mls/hr Q7H IV Last administered on 06/13/19at 04:16; Start 06/12/19 at 11:00; Stop 06/13/19 at 14:48; Status DC Amino Acids/ Glycerin/ Electrolytes 1,000 ml @ 80 mls/hr [id number] IV ; Start 06/12/19 at 10:00; Status UNV Amino Acids/ Electrolytes/ Dextrose 1,000 ml @ 80 mls/hr [id number] IV ; Start 06/12/19 at 10:15; Stop 06/18/19 at 13:50; Status DC Piperacillin Sod/ Tazobactam Sod (Zosyn Per Pharmacy) 1 each PRN DAILY PRN MC SEE COMMENTS; Start 06/12/19 at 13:15; Stop 06/12/19 at 19:16; Status DC Piperacillin Sod/ Tazobactam Sod 2.25 gm/Sodium Chloride 50 ml @ 100 mls/hr Q6HRS IV Last administered on 06/12/19at 13:48; Start 06/12/19 at 13:30; Stop 06/12/19 at 19:15; Status DC Sodium Bicarbonate (Sodium Bicarb Adult 8.4% Syr) 50 meq 1X ONCE IV Last administered on 06/12/19at 16:12; Start 06/12/19 at 16:00; Stop 06/12/19 at 16:01; Status DC Calcium Gluconate 1000 mg/Sodium Chloride 110 ml @ 220 mls/hr 1X ONCE IV Last administered on 06/12/19at 16:13; Start 06/12/19 at 16:00; Stop 06/12/19 at 16:29; Status DC Dextrose (Dextrose 50%-Water Syringe) 25 gm 1X ONCE IV Last administered on 06/12/19at 16:13; Start 06/12/19 at 16:00; Stop 06/12/19 at 16:01; Status DC Insulin Human Regular (HumuLIN R VIAL) 10 unit 1X ONCE IV Last administered on 06/12/19at 16:14; Start 06/12/19 at 16:00; Stop 06/12/19 at 16:01; Status DC Furosemide (Lasix) 40 mg 1X ONCE IVP Last administered on 06/12/19at 16:13; Start 06/12/19 at 16:00; Stop 06/12/19 at 16:01; Status DC Pantoprazole Sodium (PROTONIX VIAL for IV PUSH) 40 mg [id number] IVP Last administered on 06/13/19at 06:21; Start 06/12/19 at 18:00; Stop 06/13/19 at 18:49; Status DC Meropenem 500 mg/ Sodium Chloride 50 ml @ 100 mls/hr Q12HR IV Last administered on 06/17/19at 20:59; Start 06/12/19 at 21:00; Stop 06/18/19 at 07:26; Status DC Calcium Gluconate 1000 mg/Sodium Chloride 110 ml @ 220 mls/hr 1X ONCE IV Last administered on 06/12/19at 20:35; Start 06/12/19 at 19:15; Stop 06/12/19 at 19:44; Status DC Lidocaine HCl (Buffered Lidocaine 1%) 3 ml STK-MED ONCE .ROUTE ; Start 06/13/19 at 08:47; Stop 06/13/19 at 08:47; Status DC Lidocaine HCl (Buffered Lidocaine 1%) 6 ml 1X ONCE INJ Last administered on 06/13/19at 09:23; Start 06/13/19 at 09:30; Stop 06/13/19 at 09:31; Status DC Insulin Human Lispro (HumaLOG) 0-7 UNITS TIDWMEALS SQ Last administered on 06/13/19at 12:14; Start 06/13/19 at 12:00; Stop 06/14/19 at 23:29; Status DC Dextrose (Dextrose 50%-Water Syringe) 12.5 gm PRN Q15MIN PRN IV SEE COMMENTS; Start 06/13/19 at 11:15; Stop 06/14/19 at 23:29; Status DC Insulin Human Regular 100 unit/ Sodium Chloride 101 ml @ 0 mls/hr CONT PRN IV SEE I/O RECORD Last administered on 06/13/19at 15:03; Start 06/13/19 at 14:15 Sodium Chloride 1,000 ml @ 1,000 mls/hr Q1H PRN IV hypotension; Start 06/13/19 at 14:00; Stop 06/13/19 at 19:59; Status DC Sodium Chloride 1,000 ml @ 400 mls/hr Q2H30M PRN IV PATENCY; Start 06/13/19 at 14:00; Stop 06/14/19 at 01:59; Status DC Info (PHARMACY MONITORING -- do not chart) 1 each PRN DAILY PRN MC SEE COMMENTS; Start 06/13/19 at 14:45; Stop 06/13/19 at 14:51; Status DC Info (PHARMACY MONITORING -- do not chart) 1 each PRN DAILY PRN MC SEE COMMENTS; Start 06/13/19 at 14:45 Pantoprazole Sodium (PROTONIX VIAL for IV PUSH) 40 mg [id number] IVP Last administered on 06/21/19at 05:51; Start 06/13/19 at 21:00 Dexmedetomidine HCl 400 mcg/ Sodium Chloride 100 ml @ 0 mls/hr CONT PRN IV PER PROTOCOL Last administered on 06/21/19at 05:52; Start 06/13/19 at 19:00 Sodium Chloride 500 ml @ 500 mls/hr 1X PRN PRN IV SEE COMMENTS; Start 06/13/19 at 19:00 Atropine Sulfate (ATROPINE 0.5mg SYRINGE) 0.5 mg PRN Q5MIN PRN IV SEE COMMENTS; Start 06/13/19 at 19:00 Sodium Chloride 1,000 ml @ 1,000 mls/hr Q1H PRN IV hypotension; Start 06/14/19 at 08:55; Stop 06/14/19 at 14:54; Status DC Albumin Human 200 ml @ 200 mls/hr 1X PRN PRN IV Hypotension Last administered on 06/14/19at 09:40; Start 06/14/19 at 09:00; Stop 06/14/19 at 14:59; Status DC Sodium Chloride 1,000 ml @ 400 mls/hr Q2H30M PRN IV PATENCY; Start 06/14/19 at 08:55; Stop 06/14/19 at 20:54; Status DC Info (PHARMACY MONITORING -- do not chart) 1 each PRN DAILY PRN MC SEE COMMENTS; Start 06/14/19 at 09:00; Stop 06/14/19 at 09:06; Status DC Info (PHARMACY MONITORING -- do not chart) 1 each PRN DAILY PRN MC SEE COMMENTS; Start 06/14/19 at 09:00; Stop 06/14/19 at 09:06; Status DC Calcium Chloride 2000 mg/Sodium Chloride 120 ml @ 240 mls/hr PRN QID PRN IV for CALCIUM < 5.8 Last administered on 06/15/19at 08:32; Start 06/14/19 at 10:15; Stop 06/15/19 at 09:58; Status DC Magnesium Sulfate 50 ml @ 25 mls/hr PRN DAILY PRN IV for Mag < 1.7 on am labs; Start 06/14/19 at 10:30 Norepinephrine Bitartrate 8 mg/ Dextrose 258 ml @ 20.027 mls/ hr CONT PRN IV PER PROTOCOL Last administered on 06/14/19at 10:31; Start 06/14/19 at 10:30 Succinylcholine Chloride (Anectine) 200 mg STK-MED ONCE .ROUTE ; Start 06/14/19 at 12:22; Stop 06/14/19 at 12:23; Status DC Etomidate (Amidate) 20 mg STK-MED ONCE IV ; Start 06/14/19 at 12:22; Stop 06/14/19 at 12:23; Status DC Fentanyl Citrate 30 ml @ 0 mls/hr CONT PRN IV SEE PROTOCOL Last administered on 06/19/19 08:10; Start 06/14/19 at 12:45; Stop 06/19/19 at 11:00; Status DC Chlorhexidine Gluconate (Peridex) 15 ml BID MM Last administered on 06/20/19 20:43; Start 06/14/19 at 21:00 Midazolam HCl 50 mg/Sodium Chloride 50 ml @ 0 mls/hr CONT PRN IV SEE PROTOCOL Last administered on 06/20/19at 21:56; Start 06/14/19 at 12:45 Midazolam HCl (Versed) 5 mg STK-MED ONCE .ROUTE ; Start 06/14/19 at 12:48; Stop 06/14/19 at 12:48; Status DC Fentanyl Citrate (Fentanyl 2ml Vial) 100 mcg STK-MED ONCE .ROUTE ; Start 06/14/19 at 12:48; Stop 06/14/19 at 12:48; Status DC Midazolam HCl (Versed) 5 mg 1X ONCE IV Last administered on 06/14/19at 12:59; Start 06/14/19 at 13:00; Stop 06/14/19 at 13:01; Status DC Fentanyl Citrate (Fentanyl 2ml Vial) 100 mcg 1X ONCE IM Last administered on 06/14/19 12:58; Start 06/14/19 at 13:00; Stop 06/14/19 at 13:01; Status DC Succinylcholine Chloride (Anectine) 200 mg 1X ONCE IV Last administered on 06/14/19 12:59; Start 06/14/19 at 13:00; Stop 06/14/19 at 13:01; Status DC Etomidate (Amidate) 14 mg 1X ONCE IV Last administered on 06/14/19at 12:59; Start 06/14/19 at 13:00; Stop 06/14/19 at 13:01; Status DC Acetaminophen (Tylenol Supp) 650 mg PRN Q6HRS PRN LA MILD PAIN / TEMP Last administered on 06/21/19at 03:42; Start 06/14/19 at 20:00 Linezolid/Dextrose 300 ml @ 300 mls/hr Q12HR IV Last administered on 06/20/19 20:43; Start 06/14/19 at 21:00 Insulin Human Lispro (HumaLOG) 0-7 UNITS TIDWMEALS SQ ; Start 06/15/19 at 08:00; Stop 06/15/19 at 00:03; Status DC Dextrose (Dextrose 50%-Water Syringe) 12.5 gm PRN Q15MIN PRN IV SEE COMMENTS; Start 06/14/19 at 23:30 Insulin Human Lispro (HumaLOG) 0-7 UNITS Q4HRS SQ Last administered on 06/21/19at 09:27; Start 06/15/19 at 00:15 Calcium Gluconate 76038 mg/Sodium Chloride 494 ml @ 4.051 mls/ hr CONT PRN IV SYMPTOMATIC HYPOCALCEMIA; Start 06/15/19 at 09:30; Stop 06/15/19 at 09:23; Status DC Calcium Gluconate 5000 mg/Sodium Chloride 260 ml @ 5.543 mls/ hr CONT PRN IV SYMPTOMATIC HYPOCALCEMIA; Start 06/15/19 at 09:30; Stop 06/15/19 at 09:26; Status DC Calcium Gluconate 5000 mg/Sodium Chloride 260 ml @ 5.543 mls/ hr CONT PRN IV SYMPTOMATIC HYPOCALCEMIA; Start 06/15/19 at 09:30; Stop 06/15/19 at 09:29; Status DC Calcium Gluconate 5000 mg/Sodium Chloride 250 ml @ 28.782 mls/ hr CONT PRN IV SYMPTOMATIC HYPOCALCEMIA Last administered on 06/18/19at 06:12; Start 06/15/19 at 09:30; Stop 06/18/19 at 13:50; Status DC Lidocaine HCl (Lidocaine Pf 2% Vial) 5 ml STK-MED ONCE .ROUTE ; Start 06/14/19 at 12:00; Stop 06/17/19 at 10:37; Status DC Meropenem 500 mg/ Sodium Chloride 50 ml @ 100 mls/hr Q6HRS IV Last administered on 06/21/19at 05:51; Start 06/18/19 at 07:30 Nicardipine HCl 50 mg/Sodium Chloride 250 ml @ 25 mls/hr CONT PRN IV SEE I/O RECORD; Start 06/18/19 at 11:45 Metoprolol Tartrate (Lopressor Vial) 5 mg 1X ONCE IVP ; Start 06/18/19 at 12:15; Stop 06/18/19 at 12:16; Status DC Fentanyl Citrate (Fentanyl 600 Mcg/30 ml [employer]) 600 mcg STK-MED ONCE IV ; Start 06/15/19 at 05:30; Stop 06/18/19 at 12:07; Status DC Enoxaparin Sodium (Lovenox 40mg Syringe) 40 mg Q24H SQ Last administered on 06/20/19at 21:57; Start 06/18/19 at 22:30 Fentanyl Citrate 55 ml @ 1.98 mls/hr CONT PRN IV SEE PROTOCOL; Start 06/19/19 at 08:15; Status Cancel Info (Tpn Per Pharmacy) 1 each PRN DAILY PRN MC SEE COMMENTS Last administered on 06/20/19at 12:57; Start 06/19/19 at 11:15 Hydralazine HCl (Apresoline Inj) 10 mg PRN Q4HRS PRN IVP ELEVATED BP, 1st choice; Start 06/19/19 at 11:45 Labetalol HCl (Normodyne Iv Push) 20 mg PRN Q2HR PRN IVP HYPERTENSION, 2nd choice; Start 06/19/19 at 11:45 Potassium Phosphate 13.6 mmol/Magnesium Sulfate 10 meq/ Calcium Gluconate 20 meq/ Multivitamins 10 ml/Chromium/ Copper/Manganese/ Seleni/Zn 0.5 ml/ Total Parenteral Nutrition/Amino Acids/Dextrose/ Fat Emulsion Intravenous 1,920 ml @ 80 mls/hr TPN CONT IV Last administered on 06/19/19at 21:31; Start 06/19/19 at 22:00; Stop 06/20/19 at 21:59; Status DC Fentanyl Citrate 30 ml @ 0 mls/hr CONT PRN IV SEE PROTOCOL Last administered on 06/21/19at 02:32; Start 06/19/19 at 18:00 Micafungin Sodium 100 mg/Dextrose 100 ml @ 100 mls/hr Q24H IV Last administered on 06/20/19at 09:27; Start 06/20/19 at 09:00 Potassium Phosphate 13.6 mmol/Calcium Gluconate 20 meq/ Multivitamins 10 ml/Chromium/ Copper/Manganese/ Seleni/Zn 0.5 ml/ Insulin Human Regular 10 unit/ Total Parenteral Nutrition/Amino Acids/Dextrose/ Fat Emulsion Intravenous 1,920 ml @ 80 mls/hr TPN CONT IV Last administered on 06/20/19at 21:57; Start 06/20/19 at 22:00; Stop 06/21/19 at 21:59 Insulin Glargine (Lantus Syringe) 15 unit QHS SQ Last administered on 06/20/19at 20:46; Start 06/20/19 at 21:00 Active Scripts Active Vitals/I & O Vital Sign - Last 24 Hours 06/20/19 06/20/19 06/20/19 06/20/19 11:00 11:34 11:40 12:00 Temp 100.2 100.2 Pulse 83 79 Resp 18 16 B/P (MAP) 161/94 (116) 119/75 (90) Pulse Ox 100 100 98 O2 Delivery Ventilator Ventilator Mechanical Ventilator Ventilator 06/20/19 06/20/19 06/20/19 06/20/19 12:00 13:00 13:41 14:00 Pulse 75 80 Resp 16 25 16 B/P (MAP) 102/67 (79) 125/78 (94) Pulse Ox 100 99 100 100 O2 Delivery Ventilator Ventilator Ventilator Ventilator 06/20/19 06/20/19 06/20/19 06/20/19 14:12 14:50 15:00 15:29 Pulse 78 Resp 16 14 B/P (MAP) 107/72 (84) Pulse Ox 99 99 98 99 O2 Delivery Ventilator Ventilator Ventilator Ventilator 06/20/19 06/20/19 06/20/19 06/20/19 16:00 16:00 17:00 18:00 Temp 101.1 101.1 Pulse 86 89 82 Resp 14 14 20 B/P (MAP) 120/76 (91) 123/81 (95) 103/66 (78) Pulse Ox 100 99 98 O2 Delivery Ventilator Mechanical Ventilator Ventilator Ventilator 06/20/19 06/20/19 06/20/19 06/20/19 18:09 19:00 20:00 20:00 Temp 100.9 100.9 Pulse 80 90 Resp 20 20 B/P (MAP) 97/60 (72) 98/61 (73) Pulse Ox 99 100 100 O2 Delivery Ventilator Ventilator Mechanical Ventilator Ventilator 06/20/19 06/20/19 06/20/19 06/20/19 20:14 20:45 21:00 21:44 Pulse 85 Resp 20 B/P (MAP) 109/60 (76) Pulse Ox 99 100 O2 Delivery Ventilator Ventilator Ventilator Ventilator 06/20/19 06/20/19 06/20/19 06/21/19 22:00 22:25 23:00 00:00 Pulse 89 77 Resp 20 20 B/P (MAP) 106/65 (79) 97/56 (70) Pulse Ox 100 99 100 O2 Delivery Ventilator Ventilator Ventilator Mechanical Ventilator 06/21/19 06/21/19 06/21/19 06/21/19 00:00 00:38 01:00 02:00 Temp 100.6 100.6 Pulse 82 92 79 Resp 20 20 20 B/P (MAP) 96/56 (69) 108/70 (83) 98/58 (71) Pulse Ox 100 99 100 99 O2 Delivery Ventilator Ventilator Ventilator Ventilator 06/21/19 06/21/19 06/21/19 06/21/19 02:32 03:04 03:07 04:00 Temp 100.9 100.9 Pulse 79 90 Resp 18 18 B/P (MAP) 96/57 (70) 117/72 (87) Pulse Ox 100 100 O2 Delivery Ventilator Ventilator Ventilator Ventilator 06/21/19 06/21/19 06/21/19 06/21/19 04:00 04:22 05:00 06:00 Pulse 91 82 Resp 18 18 B/P (MAP) 154/94 (114) 117/71 (86) Pulse Ox 99 99 99 O2 Delivery Mechanical Ventilator Ventilator Ventilator Ventilator 06/21/19 06/21/19 06/21/19 06/21/19 06:14 07:38 09:16 09:58 Resp 18 Pulse Ox 99 99 99 100 O2 Delivery Ventilator Ventilator Ventilator Ventilator Intake and Output 06/20/19 06/20/19 06/21/19 15:00 23:00 07:00 Intake Total 990 ml 1850.81 ml 1701 ml Output Total 840 ml 560 ml 825 ml Balance 150 ml 1290.81 ml 876 ml Hemodynamically unstable?: Yes Is patient in severe pain?: Yes Is NPO status required?: Yes JERSON AVILES MD Jun 21, 2019 10:47
[2019-06-21] MEDS: LABETALOL 20 MG/4 ML DISP.SYRIN. IVP PRN ×4 (11:32→21:53)
--- NOTE | 2019-06-21 12:09 | PDOC ---
SUBJECTIVE ROS Intubated, abdomen distended , spiked temp of 102 OBJECTIVE Vital Signs Vital Signs Date Time Temp Pulse Resp B/P (MAP) Pulse Ox O2 Delivery O2 Flow Rate FiO2 06/21/19 11:41 100 Ventilator 06/21/19 11:32 129 176/86 06/21/19 09:16 18 06/21/19 04:00 100.9 100.9 I & 0 Intake and Output 06/21/19 07:00 Intake Total 4541.81 ml Output Total 2225 ml Balance 2316.81 ml IV Total 3331.81 ml Other 1210 ml Output Urine Total 2100 ml Gastric Drainage Total 125 ml PHYSICAL EXAM Physical Exam GENERAL: Sedated, orally intubated on vent HEENT: OGT/ETT in place NECK: Supple LUNGS: Diminished aeration bases HEART: S1, S2, regular, no murmurs. ABDOMEN: Increased Distension, : [place] EXTREMITIES: trace edema, no cyanosis SKIN: Warm, dry. 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 IV Ca Dced 06/17 PTH and Phos wnl , Severe necrotizing pancreatitis- GS following- "will attempt to avoid necrosectomy (increased morbidity and mortality), but will consider if change in clinical situation" Sepsis from GI Acute Resp failure - intubated Metabolic acidosis- resolved COMMENT/RELEVANT DATA Meds Current Medications Medications (Trade) Dose Ordered Sig/Jesse Start Time Stop Time Status Last Admin Dose Admin Acetaminophen (Tylenol Supp) 650 mg PRN Q6HRS PRN 06/14/19 20:00 06/21/19 03:42 650 MG Albumin Human 200 ml @ 200 mls/hr 1X PRN PRN 06/14/19 09:00 06/14/19 14:59 DC 06/14/19 09:40 200 MLS/HR Amino Acids/ Electrolytes/ Dextrose 1,000 ml @ 80 mls/hr [id number] 06/12/19 10:15 06/18/19 13:50 DC Amino Acids/ Glycerin/ Electrolytes 1,000 ml @ 80 mls/hr [id number] 06/12/19 10:00 UNV Atropine Sulfate (ATROPINE 0.5mg SYRINGE) 0.5 mg PRN Q5MIN PRN 06/13/19 19:00 Calcium Chloride 2000 mg/Sodium Chloride 120 ml @ 240 mls/hr PRN QID PRN 06/14/19 10:15 06/15/19 09:58 DC 06/15/19 08:32 240 MLS/HR Calcium Gluconate 1000 mg/Sodium Chloride 110 ml @ 220 mls/hr 1X ONCE 06/12/19 19:15 06/12/19 19:44 DC 06/12/19 20:35 220 MLS/HR Calcium Gluconate 5000 mg/Sodium Chloride 250 ml @ 28.782 mls/ hr CONT PRN 06/15/19 09:30 06/18/19 13:50 DC 06/18/19 06:12 28.782 MLS/HR Calcium Gluconate 96357 mg/Sodium Chloride 494 ml @ 4.051 mls/ hr CONT PRN 06/15/19 09:30 06/15/19 09:23 DC Chlorhexidine Gluconate (Peridex) 15 ml BID 06/14/19 21:00 06/20/19 20:43 15 ML Dexmedetomidine HCl 400 mcg/ Sodium Chloride 100 ml @ 0 mls/hr CONT PRN 06/13/19 19:00 06/21/19 05:52 26.3 MLS/HR Dextrose (Dextrose 50%-Water Syringe) 12.5 gm PRN Q15MIN PRN 06/14/19 23:30 Enoxaparin Sodium (Lovenox 40mg Syringe) 40 mg Q24H 06/18/19 22:30 06/20/19 21:57 40 MG Etomidate (Amidate) 14 mg 1X ONCE 06/14/19 13:00 06/14/19 13:01 DC 06/14/19 12:59 14 MG Fentanyl Citrate 30 ml @ 0 mls/hr CONT PRN 06/19/19 18:00 06/21/19 02:32 2.5 MLS/HR Fentanyl Citrate (Fentanyl 2ml Vial) 100 mcg 1X ONCE 06/14/19 13:00 06/14/19 13:01 DC 06/14/19 12:58 100 MCG Fentanyl Citrate (Fentanyl 600 Mcg/30 ml HEALTHCARE CORPORATE ACCOUNT DIRECTOR) 600 mcg STK-MED ONCE 06/15/19 05:30 06/18/19 12:07 DC Furosemide (Lasix) 40 mg 1X ONCE 06/12/19 16:00 06/12/19 16:01 DC 06/12/19 16:13 40 MG Hydralazine HCl (Apresoline Inj) 10 mg PRN Q4HRS PRN 06/19/19 11:45 Hydromorphone HCl (Dilaudid) 1 mg PRN Q2HRS PRN 06/11/19 12:00 06/21/19 09:16 1 MG Info (CONTRAST GIVEN -- Rx MONITORING) 1 each PRN DAILY PRN 06/11/19 04:45 06/13/19 04:44 DC Info (PHARMACY MONITORING -- do not chart) 1 each PRN DAILY PRN 06/14/19 09:00 06/14/19 09:06 DC Info (Tpn Per Pharmacy) 1 each PRN DAILY PRN 06/19/19 11:15 06/20/19 12:57 1 EACH Insulin Glargine (Lantus Syringe) 15 unit QHS 06/20/19 21:00 06/20/19 20:46 15 UNIT Insulin Human Lispro (HumaLOG) 0-7 UNITS Q4HRS 06/15/19 00:15 06/21/19 09:27 6 UNITS Insulin Human Regular (HumuLIN R VIAL) 10 unit 1X ONCE 06/12/19 16:00 06/12/19 16:01 DC 06/12/19 16:14 10 UNIT Insulin Human Regular 100 unit/ Sodium Chloride 101 ml @ 0 mls/hr CONT PRN 06/13/19 14:15 06/13/19 15:03 7.07 MLS/HR Iohexol (Omnipaque 350 Mg/ml) 100 ml 1X ONCE 06/11/19 04:45 06/11/19 04:46 DC 06/11/19 05:01 100 ML Labetalol HCl (Normodyne Iv Push) 20 mg PRN Q2HR PRN 06/19/19 11:45 3/7/20 11:32 20 MG Lidocaine HCl (Buffered Lidocaine 1%) 6 ml 1X ONCE 06/13/19 09:30 06/13/19 09:31 DC 06/13/19 09:23 6 ML Lidocaine HCl (Lidocaine Pf 2% Vial) 5 ml STK-MED ONCE 06/14/19 12:00 06/17/19 10:37 DC Linezolid/Dextrose 300 ml @ 300 mls/hr Q12HR 06/14/19 21:00 06/20/19 20:43 300 MLS/HR Lorazepam (Ativan Inj) 1 mg PRN Q6HRS PRN 06/11/19 18:15 06/14/19 13:00 2 MG Magnesium Sulfate 50 ml @ 25 mls/hr PRN DAILY PRN 06/14/19 10:30 Meropenem 500 mg/ Sodium Chloride 50 ml @ 100 mls/hr Q6HRS 06/18/19 07:30 06/21/19 05:51 100 MLS/HR Metoprolol Tartrate (Lopressor Vial) 5 mg 1X ONCE 06/18/19 12:15 06/18/19 12:16 DC Micafungin Sodium 100 mg/Dextrose 100 ml @ 100 mls/hr Q24H 06/20/19 09:00 06/20/19 09:27 100 MLS/HR Midazolam HCl (Versed) 5 mg 1X ONCE 06/14/19 13:00 06/14/19 13:01 DC 06/14/19 12:59 5 MG Midazolam HCl 50 mg/Sodium Chloride 50 ml @ 0 mls/hr CONT PRN 06/14/19 12:45 06/20/19 21:56 3 MLS/HR Morphine Sulfate (Morphine Sulfate) 4 mg PRN Q2HR PRN 06/11/19 05:45 06/11/19 11:54 DC 06/11/19 07:37 4 MG Nicardipine HCl 50 mg/Sodium Chloride 250 ml @ 25 mls/hr CONT PRN 06/18/19 11:45 Norepinephrine Bitartrate 8 mg/ Dextrose 258 ml @ 20.027 mls/ hr CONT PRN 06/14/19 10:30 06/14/19 10:31 20.027 MLS/HR Nystatin (Nystop) 1 devorah PRN QID PRN 06/11/19 23:15 06/11/19 23:19 1 DEVORAH Ondansetron HCl (Zofran) 4 mg PRN Q8HRS PRN 06/11/19 05:45 06/12/19 05:44 DC 06/12/19 03:29 4 MG Pantoprazole Sodium (PROTONIX VIAL for IV PUSH) 40 mg [id number] 06/13/19 21:00 06/21/19 05:51 40 MG Piperacillin Sod/ Tazobactam Sod (Zosyn Per Pharmacy) 1 each PRN DAILY PRN 06/12/19 13:15 06/12/19 19:16 DC Piperacillin Sod/ Tazobactam Sod 2.25 gm/Sodium Chloride 50 ml @ 100 mls/hr Q6HRS 06/12/19 13:30 06/12/19 19:15 DC 06/12/19 13:48 100 MLS/HR Potassium Chloride/Water 100 ml @ 100 mls/hr Q1H 06/11/19 06:00 06/11/19 07:59 DC 06/11/19 08:41 100 MLS/HR Potassium Phosphate 13.6 mmol/Calcium Gluconate 20 meq/ Multivitamins 10 ml/Chromium/ Copper/Manganese/ Seleni/Zn 0.5 ml/ Insulin Human Regular 10 unit/ Total Parenteral Nutrition/Amino Acids/Dextrose/ Fat Emulsion Intravenous 1,920 ml @ 80 mls/hr TPN CONT 06/20/19 22:00 06/21/19 21:59 06/20/19 21:57 80 MLS/HR Potassium Phosphate 13.6 mmol/Magnesium Sulfate 10 meq/ Calcium Gluconate 20 meq/ Multivitamins 10 ml/Chromium/ Copper/Manganese/ Seleni/Zn 0.5 ml/ Total Parenteral Nutrition/Amino Acids/Dextrose/ Fat Emulsion Intravenous 1,920 ml @ 80 mls/hr TPN CONT 06/19/19 22:00 06/20/19 21:59 DC 06/19/19 21:31 80 MLS/HR Prochlorperazine Edisylate (Compazine) 10 mg PRN Q8HRS PRN 06/11/19 12:00 06/12/19 14:59 10 MG Sodium Bicarbonate 50 meq/Sodium Chloride 1,050 ml @ 150 mls/hr Q7H 06/12/19 11:00 06/13/19 14:48 DC 06/13/19 04:16 150 MLS/HR Sodium Bicarbonate (Sodium Bicarb Adult 8.4% Syr) 50 meq 1X ONCE 06/12/19 16:00 06/12/19 16:01 DC 06/12/19 16:12 50 MEQ Sodium Chloride 1,000 ml @ 400 mls/hr Q2H30M PRN 06/14/19 08:55 06/14/19 20:54 DC Succinylcholine Chloride (Anectine) 200 mg 1X ONCE 06/14/19 13:00 06/14/19 13:01 DC 06/14/19 12:59 200 MG Lab Laboratory Tests Test 06/20/19 15:52 06/20/19 20:01 06/21/19 00:07 06/21/19 04:06 Glucose (Fingerstick) 313 mg/dL (70-99) 286 mg/dL (70-99) 297 mg/dL (70-99) 254 mg/dL (70-99) Test 06/21/19 05:35 06/21/19 08:15 06/21/19 09:23 White Blood Count 16.1 x10^3/uL (4.0-11.0) Red Blood Count 3.24 x10^6/uL (4.30-5.70) Hemoglobin 9.4 g/dL (13.0-17.5) Hematocrit 29.2 % (39.0-53.0) Mean Corpuscular Volume 90 fL (79-100) Mean Corpuscular Hemoglobin 29 pg (25-35) Mean Corpuscular Hemoglobin Concent 32 g/dL (31-37) Red Cell Distribution Width 14.6 % (11.5-14.5) Platelet Count 271 x10^3/uL (140-400) Neutrophils (%) (Auto) 91 % (31-73) Lymphocytes (%) (Auto) 5 % (24-48) Monocytes (%) (Auto) 3 % (0-9) Eosinophils (%) (Auto) 0 % (0-3) Basophils (%) (Auto) 0 % (0-3) Neutrophils # (Auto) 14.6 x10^3/uL (1.8-7.7) Lymphocytes # (Auto) 0.8 x10^3/uL (1.0-4.8) Monocytes # (Auto) 0.5 x10^3/uL (0.0-1.1) Eosinophils # (Auto) 0.1 x10^3/uL (0.0-0.7) Basophils # (Auto) 0.0 x10^3/uL (0.0-0.2) Segmented Neutrophils % 71 % (35-66) Band Neutrophils % 22 % (0-9) Lymphocytes % 3 % (24-48) Atypical Lymphocytes % (Manual) 2 % (0-0) Myelocytes % 2 % (0-0) Toxic Granulation Present Toxic Vacuolation Present Platelet Estimate Adequate (ADEQUATE) Large Platelets Few Sodium Level 157 mmol/L (136-145) Potassium Level 4.6 mmol/L (3.5-5.1) Chloride Level 120 mmol/L (98-107) Carbon Dioxide Level 30 mmol/L (21-32) Anion Gap 7 (6-14) Blood Urea Nitrogen 37 mg/dL (8-26) Creatinine 1.5 mg/dL (0.7-1.3) Estimated GFR (Cockcroft-Gault) 60.2 Glucose Level 278 mg/dL (70-99) Calcium Level 8.0 mg/dL (8.5-10.1) Phosphorus Level 2.8 mg/dL (2.6-4.7) Magnesium Level 2.4 mg/dL (1.8-2.4) Albumin 1.6 g/dL (3.4-5.0) O2 Saturation 98 % (92-99) Arterial Blood pH 7.43 (7.35-7.45) Arterial Blood pCO2 at Patient Temp 38 mmHg (35-46) Arterial Blood pO2 at Patient Temp 114 mmHg (75-108) Arterial Blood HCO3 25 mmol/L (21-28) Arterial Blood Base Excess 1 mmol/L (-3-3) FiO2 40 Glucose (Fingerstick) 255 mg/dL (70-99) Results All relevant outside records, renal labs, imaging studies, telemetry/EKG's were reviewed. Other CxR-- Patchy bibasilar opacities, unchanged. Small left pleural effusion, unchanged. Stable endotracheal tube and right IJ central lines. Low lung volumes. No pneumothorax. Interval retraction of enteric tube with tip projecting over the proximal stomach. Impression: 1. Interval retraction of enteric tube with tip projecting over the proximal stomach. RANDALL GALVIN MD Jun 21, 2019 12:09
[2019-06-21] MEDS: TPN PER PHARMACY MC PRN (12:34)
--- NOTE | 2019-06-21 12:39 | NUR ---
Pharmacy TPN Dosing Note S: CHRISTOPHER NEWSOME is a 49 year old M Currently receiving Central Continuous TPN started 06/19/19 B:Pertinent PMH: PANCREATITIS Height: 5 feet, 9 inches Weight: 101.6 kg Current diet: NPO LABS: Sodium: 157 Potassium: 4.6 Chloride: 120 Calcium: 8.0 Corrected Calcium: 9.92 Magnesium: 2.4 CO2: 30 SCr: 1.5 Glucose: 254-297 Albumin: 1.6 AST: 137 ALT: 66 TPN FORMULA: TPN TYPE: Central Continuous AMINO ACIDS: 100 gm DEXTROSE: 200 gm LIPIDS: 20 gm POTASSIUM PHOSPHATE: 13.6 mmol CALCIUM: 20 mEq INSULIN: 10 units MULTIPLE VITAMIN: 10 ml TRACE ELEMENTS: MTE 5 0.5 ml(s) TPN PLAN: Sodium remains elevated (no sodium in TPN and free water has been added already). Mag improving after removal from TPN (will monitor and add back as needed). Elevated blood glucose - Lantus dose increased (no change to TPN insulin) R: Continue same TPN Will monitor electrolytes, glucose, and tolerance to TPN. Azul Rodriges [facility], 06/21/19 [id number]
[2019-06-21] MEDS: MIDAZOLAM HCL 50 MG in IV NORMAL SALINE 50ML 50 ML IV PRN ×2 (14:29→19:43)
[2019-06-21] MEDS: CHLORHEXIDINE 0.12% 15 ML MOUTHWASH. MM SCH ×2 (14:45→20:39)
--- NOTE | 2019-06-21 19:19 | NUR ---
7A Sedation vacation w/o success. Tachycardic,tachypneic,HTN,restless. MD informed -sedation resumed w bolus ' a needed. AM IAP is 18 . Temp starting to climb w HR reflecting febrile state (HR 112-125). Tylenol suppository w some relief after spiking 102 at noon. Tepid bath w decreased temp. Cooling blanket placed and started prior to shift change for [id number] Dr Dawson at bedside w lengthy(45-60 min) question and answer period encouraged. Family present at time were ,patients brother and patients aunt. D5w started at [address] ?h [address] cruz order mid morning. BG q4' w SSI as needed. Scheduled CT abd in am w IV/PO contrast per Dr Dawson order. aware ,discussed earlier per phone as well as possible adverse ramifications. Decision to "go ahead". Attempted call to integrative medicine physician /order clarification on dye type s/w/o return call (therefore order placed per Dr Dawson). Labetalol x2 past 12H for elevated pressures/HR . Effective in decreasing both systolic /diastolic pressures .See flow sheet for specific s. Cont POC
[2019-06-21] MEDS: INSULIN GLARGINE SYRINGE. SQ SCH (20:40)
[2019-06-21] MEDS ORDERED: DEXTROSE 70% IV SCH ×8 (22:00)
[2019-06-21] MEDS ORDERED: TOTAL PARENTERAL NUTRITION IV SCH ×8 (22:00)
[2019-06-21] MEDS ORDERED: AMINO ACID IV SCH ×8 (22:00)
[2019-06-21] MEDS ORDERED: [UNRECOGNIZED DRUG - OTHER] IV SCH ×8 (22:00)
[2019-06-21] MEDS: ENOXAPARIN 40 MG/0.4 ML SYRINGE. SQ SCH (23:02)
[2019-06-22] VITALS (20 sets, daily range): BP systolic 94–177; BP diastolic 37–93
[2019-06-22] MEDS: LABETALOL 20 MG/4 ML DISP.SYRIN. IVP PRN ×5 (00:21→22:22)
[2019-06-22] MEDS: MIDAZOLAM HCL 50 MG in IV NORMAL SALINE 50ML 50 ML IV PRN ×3 (03:19→22:24)
[2019-06-22] MEDS: INSULIN LISPRO 300 UNITS/3 ML VIAL. SQ SCH ×6 (04:00→23:51)
[2019-06-22] MEDS: MEROPENEM 500 MG in IV NORMAL SALINE 50ML 50 ML IV SCH ×4 (05:39→23:49)
[2019-06-22] MEDS: PANTOPRAZOLE IV PUSH 40 MG VIAL. IVP SCH ×2 (05:39→18:00)
[2019-06-22 06:05] LABS: BASO % 0 % (0-3); EOS % 0 % (0-3); HEMATOCRIT 30.2 % (39.0-53.0); HEMOGLOBIN 9.6 g/dL (13.0-17.5); LYMPH # 0.4 x10^3/uL (1.0-4.8); LYMPH % 2 % (24-48); MEAN CORPUSCULAR HEMOGLOBIN 29 pg (25-35); MEAN CORPUSCULAR HGB CONC 32 g/dL (31-37); MEAN CORPUSCULAR VOLUME 90 fL (79-100); MONO # 0.6 x10^3/uL (0.0-1.1); MONO % 3 % (0-9); NEUT % 94 % (31-73); PLATELET COUNT 286 x10^3/uL (140-400); RED BLOOD COUNT 3.34 x10^6/uL (4.30-5.70); RED CELL DISTRIBUTION WIDTH 14.4 % (11.5-14.5)
[2019-06-22 06:16] LABS: CALCIUM 8.1 mg/dL (8.5-10.1); CREATININE 1.4 mg/dL (0.7-1.3); GFR 65.2; PHOSPHORUS 2.7 mg/dL (2.6-4.7); POTASSIUM 4.8 mmol/L (3.5-5.1)
[2019-06-22] MEDS: IV DEXTROSE 5% 1,000 ML IV SCH ×2 (07:00→20:20)
[2019-06-22] MEDS ORDERED: IOHEXOL 300 MG/ML 100ML VIAL. IV ONE (08:00)
[2019-06-22] MEDS ORDERED: IOHEXOL 240 MG/ML 50ML VIAL. PO ONE (08:00)
[2019-06-22] MEDS ORDERED: CONTRAST GIVEN. MC PRN (08:15)
[2019-06-22] MEDS: ALBUTEROL SULFATE 2.5 MG/3 ML NEBU. NEB SCH ×4 (08:15→19:39)
--- NOTE | 2019-06-22 08:18 | RAD ---
Exam performed: One view chest. HISTORY: Ventilator protocol. DATE OF SERVICE: 06/22/2019 COMPARISON: Single view chest from 06/21/2019. Single AP upright portable view chest findings: Study limited due to poor inspiratory effort. Endotracheal tube, feeding tube and a right-sided IJ dialysis-type catheter redemonstrated. Tiny left pleural effusion and patchy linear opacities in the left lung base to a lesser extent in the right lung base redemonstrated. No interval change IMPRESSION: No significant interval change in the bibasilar opacities, greater on the left with small left pleural effusion. Stable support lines and tubes Electronically signed by: Hermelinda Hernandez MD (06/22/2019 8:15 AM) [id number]
--- NOTE | 2019-06-22 08:24 | PDOC ---
Infectious Disease Note Subjective Subjective Fevers Tmax 102.1 - down now with cooling blanket Intubated, FiO2 40% Sedated TPN ROS ROS unobtainable Vital Sign Vital Signs Vital Signs Date Time Temp Pulse Resp B/P (MAP) Pulse Ox O2 Delivery O2 Flow Rate FiO2 06/22/19 07:34 100 Ventilator 06/22/19 06:31 104 151/87 06/22/19 06:00 18 06/22/19 04:00 99.7 99.7 06/21/19 14:55 3.0 Physical Exam PHYSICAL EXAM GENERAL: Sedated, orally intubated on vent, mitts, under cooling blanket HEENT: Pupils equal, small. OGT/ETT in place NECK: Supple no JVD LUNGS: Diminished aeration bases HEART: S1, S2, regular, no murmurs. ABDOMEN: Distended, fairly tight, bowel sounds hypoactive : [place] EXTREMITIES: Trace edema, no cyanosis. SCDs bilaterally SKIN: Warm, dry. 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/HD catheter (06/19) Labs Lab Laboratory Tests Test 06/21/19 09:23 06/21/19 14:18 06/21/19 17:07 06/21/19 19:50 Glucose (Fingerstick) 255 mg/dL (70-99) 323 mg/dL (70-99) 315 mg/dL (70-99) 303 mg/dL (70-99) Test 06/21/19 23:29 06/22/19 03:52 06/22/19 05:40 Glucose (Fingerstick) 306 mg/dL (70-99) 320 mg/dL (70-99) White Blood Count 18.0 x10^3/uL (4.0-11.0) Red Blood Count 3.34 x10^6/uL (4.30-5.70) Hemoglobin 9.6 g/dL (13.0-17.5) Hematocrit 30.2 % (39.0-53.0) Mean Corpuscular Volume 90 fL (79-100) Mean Corpuscular Hemoglobin 29 pg (25-35) Mean Corpuscular Hemoglobin Concent 32 g/dL (31-37) Red Cell Distribution Width 14.4 % (11.5-14.5) Platelet Count 286 x10^3/uL (140-400) Neutrophils (%) (Auto) 94 % (31-73) Lymphocytes (%) (Auto) 2 % (24-48) Monocytes (%) (Auto) 3 % (0-9) Eosinophils (%) (Auto) 0 % (0-3) Basophils (%) (Auto) 0 % (0-3) Neutrophils # (Auto) 17.0 x10^3/uL (1.8-7.7) Lymphocytes # (Auto) 0.4 x10^3/uL (1.0-4.8) Monocytes # (Auto) 0.6 x10^3/uL (0.0-1.1) Eosinophils # (Auto) 0.0 x10^3/uL (0.0-0.7) Basophils # (Auto) 0.0 x10^3/uL (0.0-0.2) Sodium Level 152 mmol/L (136-145) Potassium Level 4.8 mmol/L (3.5-5.1) Chloride Level 116 mmol/L (98-107) Carbon Dioxide Level 28 mmol/L (21-32) Anion Gap 8 (6-14) Blood Urea Nitrogen 33 mg/dL (8-26) Creatinine 1.4 mg/dL (0.7-1.3) Estimated GFR (Cockcroft-Gault) 65.2 Glucose Level 364 mg/dL (70-99) Calcium Level 8.1 mg/dL (8.5-10.1) Phosphorus Level 2.7 mg/dL (2.6-4.7) Magnesium Level 2.0 mg/dL (1.8-2.4) Lipase 219 U/L (73-393) Micro Microbiology 06/20/19 Blood Culture - Preliminary, Resulted NO GROWTH AFTER 1 DAY Objective Assessment Fever - now under a cooling blanket Leukocytosis Gallbladder stone pancreatitis - lipase 475 06/15.- better. CT 06/15 - Fluid collection along the inferior aspect of the stomach measures 9.6 x 4.0 cm. Loculated fluid collection along the anterior aspect of the pancreas measures 3.0 x 2.6 cm -per surgery Sepsis from GI - cult neg Acute Resp failure - intubated Lactic acidosis. Acute kidney injury previously requiring dialysis - now with improved UOP, HDC (06/13) still in place Metabolic acidosis. Hypocalcemia Basilar atelectasis. Plan Plan of Care Continue empiric merrem, micafungin (06/19) and Zyvox( ) BC neg to date Maintain aspiration precaution. Awaiting CT A/P D/w nursing Critically ill Attending Co-Sign The patient was seen and interviewed as well as examined at the bedside. The chart was reviewed. The case was discussed. Agree with the plan of care. TANVI GORE APRN Jun 22, 2019 08:24 KRISTIAN GOODMAN MD Jun 22, 2019 11:56
[2019-06-22 08:39] LABS: BASE EXCESS ABG 0 mmol/L (-3-3); HCO3 ABG 24 mmol/L (21-28); PCO2 ABG 40 mmHg (35-46); PO2 ABG 120 mmHg (75-108); SAT O2 ABG 98 % (92-99)
[2019-06-22 08:45] LABS: FIO2 ABG 40
[2019-06-22] MEDS: CHLORHEXIDINE 0.12% 15 ML MOUTHWASH. MM SCH ×2 (09:00→20:36)
--- NOTE | 2019-06-22 09:52 | RAD ---
Examination: CT ABD PEL W/ORAL CONTRST ONLY History: Pancreatitis Comparison/Correlation: CT abdomen and pelvis without contrast 06/16/2019 Findings: Axial images of the abdomen and pelvis were obtained following oral contrast administration . IV contrast was not administered. Right costophrenic sulcus atelectatic consolidation is present. Moderate-sized left basilar pleural effusion is present with adjacent atelectatic consolidation. Catheter tubing is noted involving the right atrium. Small amount of perihepatic ascites noted previously on the flank regions bilaterally greater on the right noted. Liver, spleen, and adrenal glands are unremarkable. Cholesterol calculi are present within the gallbladder. Calculi of greater density also present within the gallbladder. No biliary dilatation. The pancreas is diffusely enlarged. Low-attenuation complex at the pancreatic head are present. Extensive mesenteric edema is noted. Fluid collection is present subjacent to the stomach laterally measuring approximately 7.6 cm transverse by 2.5 cm longitudinal by 10.8 cm anteroposterior. Large quantity of stool in the colon is present. No new collections. Enlarged mesenteric lymph nodes are present at the upper abdomen. Nonenlarged lymph nodes are also seen. [place] catheter is present in the bladder. Small amount of free fluid is present. Impression: Left basilar loculated pleural collection is noted adjacent atelectasis. Right costophrenic sulcus atelectasis is noted. These are similar to the prior exam. Cholelithiasis. Edematous, enlarged pancreas again seen. Low-attenuation components at the pancreatic uncinate and head raises question of necrotic components. No significant change in overall appearance of the pancreas. Ascites is increased in interval. Likely fluid collection subjacent to the stomach is mildly increased in interval. Enlarged mesenteric lymph nodes are presumably reactive. These are similar to prior exam. PQRS Compliance Statement: One or more of the following individualized dose reduction techniques were utilized for this examination: 1. Automated exposure control 2. Adjustment of the mA and/or kV according to patient size 3. Use of iterative reconstruction technique Electronically signed by: Lakhwinder Dennis MD (06/22/2019 9:49 AM) [id number]
--- NOTE | 2019-06-22 10:35 | PDOC ---
PULMONARY PROGRESS NOTES Subjective remains on [facility]. ventilation, intubated no overnight concerns from nursing reg pulmonary status Vitals Vital Signs Date Time Temp Pulse Resp B/P (MAP) Pulse Ox O2 Delivery O2 Flow Rate FiO2 06/22/19 09:49 100 Ventilator 06/22/19 06:31 104 151/87 06/22/19 06:00 18 06/22/19 04:00 99.7 99.7 06/21/19 14:55 3.0 Comments intubated/sedated Lungs: Clear Cardiovascular: S1, S2 Abdomen: Other (/distended/firm ) Extremities: No Edema Skin: Warm Labs Laboratory Tests Test 06/20/19 11:54 06/20/19 15:52 06/20/19 20:01 06/21/19 00:07 Glucose (Fingerstick) 305 mg/dL (70-99) 313 mg/dL (70-99) 286 mg/dL (70-99) 297 mg/dL (70-99) Test 06/21/19 04:06 06/21/19 05:35 06/21/19 08:15 06/21/19 09:23 Glucose (Fingerstick) 254 mg/dL (70-99) 255 mg/dL (70-99) White Blood Count 16.1 x10^3/uL (4.0-11.0) Red Blood Count 3.24 x10^6/uL (4.30-5.70) Hemoglobin 9.4 g/dL (13.0-17.5) Hematocrit 29.2 % (39.0-53.0) Mean Corpuscular Volume 90 fL (79-100) Mean Corpuscular Hemoglobin 29 pg (25-35) Mean Corpuscular Hemoglobin Concent 32 g/dL (31-37) Red Cell Distribution Width 14.6 % (11.5-14.5) Platelet Count 271 x10^3/uL (140-400) Neutrophils (%) (Auto) 91 % (31-73) Lymphocytes (%) (Auto) 5 % (24-48) Monocytes (%) (Auto) 3 % (0-9) Eosinophils (%) (Auto) 0 % (0-3) Basophils (%) (Auto) 0 % (0-3) Neutrophils # (Auto) 14.6 x10^3/uL (1.8-7.7) Lymphocytes # (Auto) 0.8 x10^3/uL (1.0-4.8) Monocytes # (Auto) 0.5 x10^3/uL (0.0-1.1) Eosinophils # (Auto) 0.1 x10^3/uL (0.0-0.7) Basophils # (Auto) 0.0 x10^3/uL (0.0-0.2) Segmented Neutrophils % 71 % (35-66) Band Neutrophils % 22 % (0-9) Lymphocytes % 3 % (24-48) Atypical Lymphocytes % (Manual) 2 % (0-0) Myelocytes % 2 % (0-0) Toxic Granulation Present Toxic Vacuolation Present Platelet Estimate Adequate (ADEQUATE) Large Platelets Few Sodium Level 157 mmol/L (136-145) Potassium Level 4.6 mmol/L (3.5-5.1) Chloride Level 120 mmol/L (98-107) Carbon Dioxide Level 30 mmol/L (21-32) Anion Gap 7 (6-14) Blood Urea Nitrogen 37 mg/dL (8-26) Creatinine 1.5 mg/dL (0.7-1.3) Estimated GFR (Cockcroft-Gault) 60.2 Glucose Level 278 mg/dL (70-99) Calcium Level 8.0 mg/dL (8.5-10.1) Phosphorus Level 2.8 mg/dL (2.6-4.7) Magnesium Level 2.4 mg/dL (1.8-2.4) Albumin 1.6 g/dL (3.4-5.0) O2 Saturation 98 % (92-99) Arterial Blood pH 7.43 (7.35-7.45) Arterial Blood pCO2 at Patient Temp 38 mmHg (35-46) Arterial Blood pO2 at Patient Temp 114 mmHg (75-108) Arterial Blood HCO3 25 mmol/L (21-28) Arterial Blood Base Excess 1 mmol/L (-3-3) FiO2 40 Test 06/21/19 14:18 06/21/19 17:07 06/21/19 19:50 06/21/19 23:29 Glucose (Fingerstick) 323 mg/dL (70-99) 315 mg/dL (70-99) 303 mg/dL (70-99) 306 mg/dL (70-99) Test 06/22/19 03:52 06/22/19 05:40 06/22/19 08:20 06/22/19 08:56 Glucose (Fingerstick) 320 mg/dL (70-99) 95 mg/dL (70-99) White Blood Count 18.0 x10^3/uL (4.0-11.0) Red Blood Count 3.34 x10^6/uL (4.30-5.70) Hemoglobin 9.6 g/dL (13.0-17.5) Hematocrit 30.2 % (39.0-53.0) Mean Corpuscular Volume 90 fL (79-100) Mean Corpuscular Hemoglobin 29 pg (25-35) Mean Corpuscular Hemoglobin Concent 32 g/dL (31-37) Red Cell Distribution Width 14.4 % (11.5-14.5) Platelet Count 286 x10^3/uL (140-400) Neutrophils (%) (Auto) 94 % (31-73) Lymphocytes (%) (Auto) 2 % (24-48) Monocytes (%) (Auto) 3 % (0-9) Eosinophils (%) (Auto) 0 % (0-3) Basophils (%) (Auto) 0 % (0-3) Neutrophils # (Auto) 17.0 x10^3/uL (1.8-7.7) Lymphocytes # (Auto) 0.4 x10^3/uL (1.0-4.8) Monocytes # (Auto) 0.6 x10^3/uL (0.0-1.1) Eosinophils # (Auto) 0.0 x10^3/uL (0.0-0.7) Basophils # (Auto) 0.0 x10^3/uL (0.0-0.2) Sodium Level 152 mmol/L (136-145) Potassium Level 4.8 mmol/L (3.5-5.1) Chloride Level 116 mmol/L (98-107) Carbon Dioxide Level 28 mmol/L (21-32) Anion Gap 8 (6-14) Blood Urea Nitrogen 33 mg/dL (8-26) Creatinine 1.4 mg/dL (0.7-1.3) Estimated GFR (Cockcroft-Gault) 65.2 Glucose Level 364 mg/dL (70-99) Calcium Level 8.1 mg/dL (8.5-10.1) Phosphorus Level 2.7 mg/dL (2.6-4.7) Magnesium Level 2.0 mg/dL (1.8-2.4) Lipase 219 U/L (73-393) O2 Saturation 98 % (92-99) Arterial Blood pH 7.41 (7.35-7.45) Arterial Blood pCO2 at Patient Temp 40 mmHg (35-46) Arterial Blood pO2 at Patient Temp 120 mmHg (75-108) Arterial Blood HCO3 24 mmol/L (21-28) Arterial Blood Base Excess 0 mmol/L (-3-3) FiO2 40 Laboratory Tests Test 06/21/19 14:18 06/21/19 17:07 06/21/19 19:50 06/21/19 23:29 Glucose (Fingerstick) 323 mg/dL (70-99) 315 mg/dL (70-99) 303 mg/dL (70-99) 306 mg/dL (70-99) Test 06/22/19 03:52 06/22/19 05:40 06/22/19 08:20 06/22/19 08:56 Glucose (Fingerstick) 320 mg/dL (70-99) 95 mg/dL (70-99) White Blood Count 18.0 x10^3/uL (4.0-11.0) Red Blood Count 3.34 x10^6/uL (4.30-5.70) Hemoglobin 9.6 g/dL (13.0-17.5) Hematocrit 30.2 % (39.0-53.0) Mean Corpuscular Volume 90 fL (79-100) Mean Corpuscular Hemoglobin 29 pg (25-35) Mean Corpuscular Hemoglobin Concent 32 g/dL (31-37) Red Cell Distribution Width 14.4 % (11.5-14.5) Platelet Count 286 x10^3/uL (140-400) Neutrophils (%) (Auto) 94 % (31-73) Lymphocytes (%) (Auto) 2 % (24-48) Monocytes (%) (Auto) 3 % (0-9) Eosinophils (%) (Auto) 0 % (0-3) Basophils (%) (Auto) 0 % (0-3) Neutrophils # (Auto) 17.0 x10^3/uL (1.8-7.7) Lymphocytes # (Auto) 0.4 x10^3/uL (1.0-4.8) Monocytes # (Auto) 0.6 x10^3/uL (0.0-1.1) Eosinophils # (Auto) 0.0 x10^3/uL (0.0-0.7) Basophils # (Auto) 0.0 x10^3/uL (0.0-0.2) Sodium Level 152 mmol/L (136-145) Potassium Level 4.8 mmol/L (3.5-5.1) Chloride Level 116 mmol/L (98-107) Carbon Dioxide Level 28 mmol/L (21-32) Anion Gap 8 (6-14) Blood Urea Nitrogen 33 mg/dL (8-26) Creatinine 1.4 mg/dL (0.7-1.3) Estimated GFR (Cockcroft-Gault) 65.2 Glucose Level 364 mg/dL (70-99) Calcium Level 8.1 mg/dL (8.5-10.1) Phosphorus Level 2.7 mg/dL (2.6-4.7) Magnesium Level 2.0 mg/dL (1.8-2.4) Lipase 219 U/L (73-393) O2 Saturation 98 % (92-99) Arterial Blood pH 7.41 (7.35-7.45) Arterial Blood pCO2 at Patient Temp 40 mmHg (35-46) Arterial Blood pO2 at Patient Temp 120 mmHg (75-108) Arterial Blood HCO3 24 mmol/L (21-28) Arterial Blood Base Excess 0 mmol/L (-3-3) FiO2 40 Medications Active Scripts Medications Dose Route/Sig Max Daily Dose Days Date Category Comments 38CX reviewed no change ct abdomen 06/21 report reviewed Impression . IMPRESSION: 1. Acute hypoxemic respiratory failure, multifactorial. 2. Acute gallstone pancreatitis./ Necrosis 3. Acute kidney failure. improving 4. Metabolic toxic encephalopathy. 5. Hyperkalemia.corrected 6. Metabolic / respiratory acidosis 7. Hypocalcemia. 8. POSSIBLE ABD COMPARTMENT SYNDROME PRESSURE 20 9. HEP B S POSITIVE 10. Hypernatremia 11. LLL small effusion, monitor Plan . AC mode PRN suctioning, NEBS Pain control: fent gtt Follow CXR/ABG ABX per ID ct abdomen report reviewed 06/21. Follow surgery recs--- ? surgery D/W RN/RT TAYA PEREIRA MD Jun 22, 2019 10:35
[2019-06-22] MEDS ORDERED: cefOXitin SODIUM IV Push 2 GM VIAL. IVP SCH (11:00)
--- NOTE | 2019-06-22 11:05 | PDOC ---
GI PROGRESS NOTES Date Date/Time DATE: 06/22/19 TIME: 11:[address] reveals fluid around the pancreas and clinically intra-abdominal pressure appears to be increasing and WBC increasing. No Clinical progress with his severe likely necrotizing pancreatitis Case discussed with Dr. Dawson who feels at this point exploration with drainage and removal of necrotic pancreatic tissue would be appropriate. Objective Vitals Vital Signs Date Time Temp Pulse Resp B/P (MAP) Pulse Ox O2 Delivery O2 Flow Rate FiO2 06/22/19 09:49 100 Ventilator 06/22/19 07:34 100 Ventilator 06/22/19 07:05 18 98 06/22/19 06:35 Ventilator 06/22/19 06:31 104 151/87 06/22/19 06:00 108 18 142/84 (103) 100 Ventilator 06/22/19 05:08 100 Ventilator 06/22/19 05:00 106 18 145/77 (99) 100 Ventilator 06/22/19 04:00 99.7 98 18 125/76 (92) 100 Ventilator 99.7 06/22/19 03:45 Mechanical Ventilator 06/22/19 03:18 104 144/78 06/22/19 03:00 100 18 131/79 (96) 100 Ventilator 06/22/19 01:35 100 Ventilator 06/22/19 01:00 99.1 97 18 143/73 (96) 100 Ventilator 99.1 06/22/19 00:21 103 151/83 06/22/19 00:00 98.6 99 18 151/83 (105) 100 Ventilator 98.6 06/21/19 23:55 100 Ventilator 06/21/19 23:40 Mechanical Ventilator 06/21/19 23:00 98.6 95 18 127/81 (96) 100 Ventilator 98.6 06/21/19 22:05 Ventilator 06/21/19 22:00 99.8 94 18 119/81 (94) 100 Ventilator 99.8 06/21/19 21:53 107 153/95 06/21/19 21:32 Ventilator 06/21/19 21:00 106 18 141/91 (108) 100 Ventilator 06/21/19 20:50 100 Ventilator 06/21/19 20:00 101.0 104 18 131/76 (94) 100 Ventilator 101.0 06/21/19 19:45 Mechanical Ventilator 06/21/19 19:42 100 Ventilator 06/21/19 19:42 124 163/89 06/21/19 19:00 124 18 164/99 (120) 100 Ventilator 06/21/19 18:00 118 18 150/89 (109) 100 Ventilator 06/21/19 17:15 100 Ventilator 06/21/19 17:00 101.5 110 18 142/79 (100) 100 Ventilator 101.5 06/21/19 16:28 112 167/113 06/21/19 16:00 134 18 161/113 (129) 100 Ventilator 06/21/19 16:00 Mechanical Ventilator 06/21/19 15:24 100 Ventilator 06/21/19 15:00 118 18 118/71 (87) 99 Ventilator 06/21/19 14:59 22 100 06/21/19 14:59 22 100 06/21/19 14:55 100 3.0 06/21/19 14:36 100 3.0 06/21/19 14:29 100 3.0 06/21/19 14:25 20 100 06/21/19 14:00 101.1 124 18 186/103 (130) 100 Ventilator 101.1 06/21/19 13:09 100 Ventilator 06/21/19 13:00 108 18 152/96 (114) 100 Ventilator 06/21/19 12:00 Mechanical Ventilator 06/21/19 12:00 102.2 10 18 148/90 (109) 100 Ventilator 102.2 06/21/19 11:41 100 Ventilator 06/21/19 11:32 129 176/86 Labs Labs Laboratory Tests Test 06/21/19 14:18 06/21/19 17:07 06/21/19 19:50 06/21/19 23:29 Glucose (Fingerstick) 323 mg/dL (70-99) 315 mg/dL (70-99) 303 mg/dL (70-99) 306 mg/dL (70-99) Test 06/22/19 03:52 06/22/19 05:40 06/22/19 08:20 06/22/19 08:56 Glucose (Fingerstick) 320 mg/dL (70-99) 95 mg/dL (70-99) White Blood Count 18.0 x10^3/uL (4.0-11.0) Red Blood Count 3.34 x10^6/uL (4.30-5.70) Hemoglobin 9.6 g/dL (13.0-17.5) Hematocrit 30.2 % (39.0-53.0) Mean Corpuscular Volume 90 fL (79-100) Mean Corpuscular Hemoglobin 29 pg (25-35) Mean Corpuscular Hemoglobin Concent 32 g/dL (31-37) Red Cell Distribution Width 14.4 % (11.5-14.5) Platelet Count 286 x10^3/uL (140-400) Neutrophils (%) (Auto) 94 % (31-73) Lymphocytes (%) (Auto) 2 % (24-48) Monocytes (%) (Auto) 3 % (0-9) Eosinophils (%) (Auto) 0 % (0-3) Basophils (%) (Auto) 0 % (0-3) Neutrophils # (Auto) 17.0 x10^3/uL (1.8-7.7) Lymphocytes # (Auto) 0.4 x10^3/uL (1.0-4.8) Monocytes # (Auto) 0.6 x10^3/uL (0.0-1.1) Eosinophils # (Auto) 0.0 x10^3/uL (0.0-0.7) Basophils # (Auto) 0.0 x10^3/uL (0.0-0.2) Sodium Level 152 mmol/L (136-145) Potassium Level 4.8 mmol/L (3.5-5.1) Chloride Level 116 mmol/L (98-107) Carbon Dioxide Level 28 mmol/L (21-32) Anion Gap 8 (6-14) Blood Urea Nitrogen 33 mg/dL (8-26) Creatinine 1.4 mg/dL (0.7-1.3) Estimated GFR (Cockcroft-Gault) 65.2 Glucose Level 364 mg/dL (70-99) Calcium Level 8.1 mg/dL (8.5-10.1) Phosphorus Level 2.7 mg/dL (2.6-4.7) Magnesium Level 2.0 mg/dL (1.8-2.4) Lipase 219 U/L (73-393) O2 Saturation 98 % (92-99) Arterial Blood pH 7.41 (7.35-7.45) Arterial Blood pCO2 at Patient Temp 40 mmHg (35-46) Arterial Blood pO2 at Patient Temp 120 mmHg (75-108) Arterial Blood HCO3 24 mmol/L (21-28) Arterial Blood Base Excess 0 mmol/L (-3-3) FiO2 40 Physical Exam Physical Exam sedated on vent NGT in place chest clear cor- RRR abd- mildly distended, no bowel sounds Assessment Assessment Complicated pancreatitis with adynamic ileus and respiratory failure on vent. NGT in place with some bilious outpt CT scan reveals fluid around the pancreas and persistent inflammation that is suspicious for unresolved pancreatitis and possible necrosis- his clinical course has not improved. His white blood cell count is increasing and intra- abdominal pressures are increased Case discussed with Dr. Dawson- planning exploration with drainage and removal of any necrotic pancreatic tissue Plan Plan supportive care monitor labs and clinical course repeat CT next week Hemodynamically unstable?: Yes Is patient in severe pain?: Yes Is NPO status required?: Yes GARCÍA GUERRERO MD Jun 22, 2019 11:05
[2019-06-22] MEDS: MICAFUNGIN 100 MG in IV DEXTROSE 5% 100ML 100 ML IV SCH (11:11)
--- NOTE | 2019-06-22 11:20 | PDOC ---
SURGICAL PROGRESS NOTE Subjective Pre-Op Note D/w pt's . D/w GI and pulmonary. 49 yo M with severe necrotizing pancreatitis. Pt unable to wean off ventilator secondary to pain. Will plan tracheostomy. Pt with increasing WBC, increasing abd pressures (22). Ct with necrosis and diffuse inflammation and fluid. Will perform open, given some concern for abdominal compartment syndrome and possible need for open abdomen. Cholecystectomy with cholangiogram, secondary to suspect gallstone pancreatitis. Plan G-J tube for enteral nutrition past ligament of treitz. Pt benefited from delay of intervention to this point, but given no significant improvement and some concerning factors, favor intervention at this time. R/B/A d/w pt's . Risks, including, but not limited to: bleeding, infection, damage to surrounding structures, risk of anesthesia, risk of , risk of pancreatic fistula, meterman diabetes, need for additional surgery. She appears to understand, her questions are answered and she elects to proceed. Vital Signs Vital Signs Date Time Temp Pulse Resp B/P (MAP) Pulse Ox O2 Delivery O2 Flow Rate FiO2 06/22/19 09:49 100 Ventilator 06/22/19 07:05 18 06/22/19 06:31 104 151/87 06/22/19 04:00 99.7 99.7 06/21/19 14:55 3.0 I&O Intake and Output 06/22/19 07:00 Intake Total 1868 ml Output Total 3220 ml Balance -1352 ml Intake Oral 0 ml IV Total 1868 ml Output Urine Total 3220 ml Labs Laboratory Tests Test 06/20/19 11:54 06/20/19 15:52 06/20/19 20:01 06/21/19 00:07 Glucose (Fingerstick) 305 mg/dL (70-99) 313 mg/dL (70-99) 286 mg/dL (70-99) 297 mg/dL (70-99) Test 06/21/19 04:06 06/21/19 05:35 06/21/19 08:15 06/21/19 09:23 Glucose (Fingerstick) 254 mg/dL (70-99) 255 mg/dL (70-99) White Blood Count 16.1 x10^3/uL (4.0-11.0) Red Blood Count 3.24 x10^6/uL (4.30-5.70) Hemoglobin 9.4 g/dL (13.0-17.5) Hematocrit 29.2 % (39.0-53.0) Mean Corpuscular Volume 90 fL (79-100) Mean Corpuscular Hemoglobin 29 pg (25-35) Mean Corpuscular Hemoglobin Concent 32 g/dL (31-37) Red Cell Distribution Width 14.6 % (11.5-14.5) Platelet Count 271 x10^3/uL (140-400) Neutrophils (%) (Auto) 91 % (31-73) Lymphocytes (%) (Auto) 5 % (24-48) Monocytes (%) (Auto) 3 % (0-9) Eosinophils (%) (Auto) 0 % (0-3) Basophils (%) (Auto) 0 % (0-3) Neutrophils # (Auto) 14.6 x10^3/uL (1.8-7.7) Lymphocytes # (Auto) 0.8 x10^3/uL (1.0-4.8) Monocytes # (Auto) 0.5 x10^3/uL (0.0-1.1) Eosinophils # (Auto) 0.1 x10^3/uL (0.0-0.7) Basophils # (Auto) 0.0 x10^3/uL (0.0-0.2) Segmented Neutrophils % 71 % (35-66) Band Neutrophils % 22 % (0-9) Lymphocytes % 3 % (24-48) Atypical Lymphocytes % (Manual) 2 % (0-0) Myelocytes % 2 % (0-0) Toxic Granulation Present Toxic Vacuolation Present Platelet Estimate Adequate (ADEQUATE) Large Platelets Few Sodium Level 157 mmol/L (136-145) Potassium Level 4.6 mmol/L (3.5-5.1) Chloride Level 120 mmol/L (98-107) Carbon Dioxide Level 30 mmol/L (21-32) Anion Gap 7 (6-14) Blood Urea Nitrogen 37 mg/dL (8-26) Creatinine 1.5 mg/dL (0.7-1.3) Estimated GFR (Cockcroft-Gault) 60.2 Glucose Level 278 mg/dL (70-99) Calcium Level 8.0 mg/dL (8.5-10.1) Phosphorus Level 2.8 mg/dL (2.6-4.7) Magnesium Level 2.4 mg/dL (1.8-2.4) Albumin 1.6 g/dL (3.4-5.0) O2 Saturation 98 % (92-99) Arterial Blood pH 7.43 (7.35-7.45) Arterial Blood pCO2 at Patient Temp 38 mmHg (35-46) Arterial Blood pO2 at Patient Temp 114 mmHg (75-108) Arterial Blood HCO3 25 mmol/L (21-28) Arterial Blood Base Excess 1 mmol/L (-3-3) FiO2 40 Test 06/21/19 14:18 06/21/19 17:07 06/21/19 19:50 06/21/19 23:29 Glucose (Fingerstick) 323 mg/dL (70-99) 315 mg/dL (70-99) 303 mg/dL (70-99) 306 mg/dL (70-99) Test 06/22/19 03:52 06/22/19 05:40 06/22/19 08:20 06/22/19 08:56 Glucose (Fingerstick) 320 mg/dL (70-99) 95 mg/dL (70-99) White Blood Count 18.0 x10^3/uL (4.0-11.0) Red Blood Count 3.34 x10^6/uL (4.30-5.70) Hemoglobin 9.6 g/dL (13.0-17.5) Hematocrit 30.2 % (39.0-53.0) Mean Corpuscular Volume 90 fL (79-100) Mean Corpuscular Hemoglobin 29 pg (25-35) Mean Corpuscular Hemoglobin Concent 32 g/dL (31-37) Red Cell Distribution Width 14.4 % (11.5-14.5) Platelet Count 286 x10^3/uL (140-400) Neutrophils (%) (Auto) 94 % (31-73) Lymphocytes (%) (Auto) 2 % (24-48) Monocytes (%) (Auto) 3 % (0-9) Eosinophils (%) (Auto) 0 % (0-3) Basophils (%) (Auto) 0 % (0-3) Neutrophils # (Auto) 17.0 x10^3/uL (1.8-7.7) Lymphocytes # (Auto) 0.4 x10^3/uL (1.0-4.8) Monocytes # (Auto) 0.6 x10^3/uL (0.0-1.1) Eosinophils # (Auto) 0.0 x10^3/uL (0.0-0.7) Basophils # (Auto) 0.0 x10^3/uL (0.0-0.2) Sodium Level 152 mmol/L (136-145) Potassium Level 4.8 mmol/L (3.5-5.1) Chloride Level 116 mmol/L (98-107) Carbon Dioxide Level 28 mmol/L (21-32) Anion Gap 8 (6-14) Blood Urea Nitrogen 33 mg/dL (8-26) Creatinine 1.4 mg/dL (0.7-1.3) Estimated GFR (Cockcroft-Gault) 65.2 Glucose Level 364 mg/dL (70-99) Calcium Level 8.1 mg/dL (8.5-10.1) Phosphorus Level 2.7 mg/dL (2.6-4.7) Magnesium Level 2.0 mg/dL (1.8-2.4) Lipase 219 U/L (73-393) O2 Saturation 98 % (92-99) Arterial Blood pH 7.41 (7.35-7.45) Arterial Blood pCO2 at Patient Temp 40 mmHg (35-46) Arterial Blood pO2 at Patient Temp 120 mmHg (75-108) Arterial Blood HCO3 24 mmol/L (21-28) Arterial Blood Base Excess 0 mmol/L (-3-3) FiO2 40 Laboratory Tests Test 06/21/19 14:18 06/21/19 17:07 06/21/19 19:50 06/21/19 23:29 Glucose (Fingerstick) 323 mg/dL (70-99) 315 mg/dL (70-99) 303 mg/dL (70-99) 306 mg/dL (70-99) Test 06/22/19 03:52 06/22/19 05:40 06/22/19 08:20 06/22/19 08:56 Glucose (Fingerstick) 320 mg/dL (70-99) 95 mg/dL (70-99) White Blood Count 18.0 x10^3/uL (4.0-11.0) Red Blood Count 3.34 x10^6/uL (4.30-5.70) Hemoglobin 9.6 g/dL (13.0-17.5) Hematocrit 30.2 % (39.0-53.0) Mean Corpuscular Volume 90 fL (79-100) Mean Corpuscular Hemoglobin 29 pg (25-35) Mean Corpuscular Hemoglobin Concent 32 g/dL (31-37) Red Cell Distribution Width 14.4 % (11.5-14.5) Platelet Count 286 x10^3/uL (140-400) Neutrophils (%) (Auto) 94 % (31-73) Lymphocytes (%) (Auto) 2 % (24-48) Monocytes (%) (Auto) 3 % (0-9) Eosinophils (%) (Auto) 0 % (0-3) Basophils (%) (Auto) 0 % (0-3) Neutrophils # (Auto) 17.0 x10^3/uL (1.8-7.7) Lymphocytes # (Auto) 0.4 x10^3/uL (1.0-4.8) Monocytes # (Auto) 0.6 x10^3/uL (0.0-1.1) Eosinophils # (Auto) 0.0 x10^3/uL (0.0-0.7) Basophils # (Auto) 0.0 x10^3/uL (0.0-0.2) Sodium Level 152 mmol/L (136-145) Potassium Level 4.8 mmol/L (3.5-5.1) Chloride Level 116 mmol/L (98-107) Carbon Dioxide Level 28 mmol/L (21-32) Anion Gap 8 (6-14) Blood Urea Nitrogen 33 mg/dL (8-26) Creatinine 1.4 mg/dL (0.7-1.3) Estimated GFR (Cockcroft-Gault) 65.2 Glucose Level 364 mg/dL (70-99) Calcium Level 8.1 mg/dL (8.5-10.1) Phosphorus Level 2.7 mg/dL (2.6-4.7) Magnesium Level 2.0 mg/dL (1.8-2.4) Lipase 219 U/L (73-393) O2 Saturation 98 % (92-99) Arterial Blood pH 7.41 (7.35-7.45) Arterial Blood pCO2 at Patient Temp 40 mmHg (35-46) Arterial Blood pO2 at Patient Temp 120 mmHg (75-108) Arterial Blood HCO3 24 mmol/L (21-28) Arterial Blood Base Excess 0 mmol/L (-3-3) FiO2 40 Problem List Problems Medical Problems: (1) Acute pancreatitis Status: Acute (2) Nausea & vomiting Status: Acute KARLA CALL MD Jun 22, 2019 11:20
[2019-06-22] MEDS ORDERED: cefOXitin SODIUM IV Push 2 GM VIAL. IVP ONE (11:30)
[2019-06-22] MEDS ORDERED: ROCURONIUM 50 MG/5 ML VIAL. ONE ×2 (11:42→14:52)
[2019-06-22] MEDS ORDERED: PROPOFOL 20 ML IV ONE (11:42)
[2019-06-22] MEDS: TPN PER PHARMACY MC PRN ×2 (11:43→11:53)
[2019-06-22] MEDS ORDERED: DEXAMETHASONE SOD PHOS 4 MG/ML VIAL ONE (11:45)
[2019-06-22] MEDS ORDERED: ONDANSETRON PF 4 MG/2 ML VIAL. ONE (11:45)
--- NOTE | 2019-06-22 11:55 | PDOC ---
PROGRESS NOTES History of Present Illness History of Present Illness ASSESSMENT AND PLAN: Acute hypoxemic respiratory failure, Severe pancreatitis. , GALLSTONE pancreatitis///Severe necrotizing gallstone pancreatitis, hypoattenuation of the pancreas, concerning for necrosis although evaluation degraded without IV contrast. 06/16 Severe biliary pancreatitis. Resp failure Renal failure MORBID OBESITY ACUTE HYPOXIC RESP FAILURE// ARDS HYPERKALEMIA hypocalcemia per nephrology replacement TRANSAMINITIS LACTIC ACIDOSIS SEPSIS VOLUME OVERLOAD HYPERGLYCEMIA, UNCONTROLLED HYPOCALCEMIA, REPLACE PER RENAL high surgical risk admitted consult GI, IV fluids, p.r.n. antiemetics, home medications, deep venous thrombosis prophylaxis. Full code. nephrology consult gen surgery consult GI CONSULT O2 SUPPORT lactic acid with reflex iv zosyn per pharmacy ID CONSULT BLOOD CULT BICARB DRIP prn temp dialysis catheter PULM CONSULT INSULIN DRIP PRN HOLD SURGERY, HIGH RISK FOR COMPLICATIONS orally intubated on vent, mitts ADD LANTUS 20 UNITS SQ HS plan tracheostomy. 06/21 sedated on vent D/W RN PROGNOSIS: Guarded. 34 MIN CC TIME OPERATIVE NOTE. OPERATIVE NOTE Date: Date: Jun 22, 2019 Pre-Op Diagnosis: Severe necrotizing gallstone pancreatitis, increased abdominal pressure, respiratory failure Post-Op Diagnosis: same Procedure Performed: Exploratory laparotomy, pancreatic necrosectomy, cholecystostomy tube placement, Gastrostomy placement with jejunal extension, tracheostomy placement (specifically 8 shiley cuffed) Surgeon: Aaron Dawson Anesthesia Type: SALEEMA Blood Loss: 200 Specimans Obtained: pancreatic necrosis, saponification, gallstones Findings: diffuse peritonitis, 1.5 liters of ascites, diffuse saponification, viable viscera, mulitiple gallstones, normal liver Complications: none Vitals Vitals Vital Signs Date Time Temp Pulse Resp B/P (MAP) Pulse Ox O2 Delivery O2 Flow Rate FiO2 06/22/19 11:20 100 Ventilator 06/22/19 07:05 18 06/22/19 06:31 104 151/87 06/22/19 04:00 99.7 99.7 06/21/19 14:55 3.0 Physical Exam Physical Exam GENERAL: Sedated, orally intubated on vent, mitts, under cooling blanket HEENT: Pupils equal, small. OGT/ETT in place NECK: Supple no JVD LUNGS: Diminished aeration bases HEART: S1, S2, regular, no murmurs. ABDOMEN: Distended, fairly tight, bowel sounds hypoactive : [place] EXTREMITIES: Trace edema, no cyanosis. SCDs bilaterally SKIN: Warm, dry. 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 (06/19) General: Other (sedated ) Heart: Other (ST, rate near 125-130) Lungs: Clear Abdomen: Other (tight, distended ) Extremities: No edema Skin: No significant lesion Labs LABS Laboratory Tests Test 06/21/19 14:18 06/21/19 17:07 06/21/19 19:50 06/21/19 23:29 Glucose (Fingerstick) 323 mg/dL (70-99) 315 mg/dL (70-99) 303 mg/dL (70-99) 306 mg/dL (70-99) Test 06/22/19 03:52 06/22/19 05:40 06/22/19 08:20 06/22/19 08:56 Glucose (Fingerstick) 320 mg/dL (70-99) 95 mg/dL (70-99) White Blood Count 18.0 x10^3/uL (4.0-11.0) Red Blood Count 3.34 x10^6/uL (4.30-5.70) Hemoglobin 9.6 g/dL (13.0-17.5) Hematocrit 30.2 % (39.0-53.0) Mean Corpuscular Volume 90 fL (79-100) Mean Corpuscular Hemoglobin 29 pg (25-35) Mean Corpuscular Hemoglobin Concent 32 g/dL (31-37) Red Cell Distribution Width 14.4 % (11.5-14.5) Platelet Count 286 x10^3/uL (140-400) Neutrophils (%) (Auto) 94 % (31-73) Lymphocytes (%) (Auto) 2 % (24-48) Monocytes (%) (Auto) 3 % (0-9) Eosinophils (%) (Auto) 0 % (0-3) Basophils (%) (Auto) 0 % (0-3) Neutrophils # (Auto) 17.0 x10^3/uL (1.8-7.7) Lymphocytes # (Auto) 0.4 x10^3/uL (1.0-4.8) Monocytes # (Auto) 0.6 x10^3/uL (0.0-1.1) Eosinophils # (Auto) 0.0 x10^3/uL (0.0-0.7) Basophils # (Auto) 0.0 x10^3/uL (0.0-0.2) Sodium Level 152 mmol/L (136-145) Potassium Level 4.8 mmol/L (3.5-5.1) Chloride Level 116 mmol/L (98-107) Carbon Dioxide Level 28 mmol/L (21-32) Anion Gap 8 (6-14) Blood Urea Nitrogen 33 mg/dL (8-26) Creatinine 1.4 mg/dL (0.7-1.3) Estimated GFR (Cockcroft-Gault) 65.2 Glucose Level 364 mg/dL (70-99) Calcium Level 8.1 mg/dL (8.5-10.1) Phosphorus Level 2.7 mg/dL (2.6-4.7) Magnesium Level 2.0 mg/dL (1.8-2.4) Lipase 219 U/L (73-393) O2 Saturation 98 % (92-99) Arterial Blood pH 7.41 (7.35-7.45) Arterial Blood pCO2 at Patient Temp 40 mmHg (35-46) Arterial Blood pO2 at Patient Temp 120 mmHg (75-108) Arterial Blood HCO3 24 mmol/L (21-28) Arterial Blood Base Excess 0 mmol/L (-3-3) FiO2 40 Assessment and Plan Assessmemt and Plan Problems Medical Problems: (1) Acute pancreatitis Status: Acute (2) Nausea & vomiting Status: Acute Comment Review of Relevant I have reviewed the following items alexandra (where applicable) has been applied. Labs Laboratory Tests Test 06/20/19 15:52 06/20/19 20:01 06/21/19 00:07 06/21/19 04:06 Glucose (Fingerstick) 313 mg/dL (70-99) 286 mg/dL (70-99) 297 mg/dL (70-99) 254 mg/dL (70-99) Test 06/21/19 05:35 06/21/19 08:15 06/21/19 09:23 06/21/19 14:18 White Blood Count 16.1 x10^3/uL (4.0-11.0) Red Blood Count 3.24 x10^6/uL (4.30-5.70) Hemoglobin 9.4 g/dL (13.0-17.5) Hematocrit 29.2 % (39.0-53.0) Mean Corpuscular Volume 90 fL (79-100) Mean Corpuscular Hemoglobin 29 pg (25-35) Mean Corpuscular Hemoglobin Concent 32 g/dL (31-37) Red Cell Distribution Width 14.6 % (11.5-14.5) Platelet Count 271 x10^3/uL (140-400) Neutrophils (%) (Auto) 91 % (31-73) Lymphocytes (%) (Auto) 5 % (24-48) Monocytes (%) (Auto) 3 % (0-9) Eosinophils (%) (Auto) 0 % (0-3) Basophils (%) (Auto) 0 % (0-3) Neutrophils # (Auto) 14.6 x10^3/uL (1.8-7.7) Lymphocytes # (Auto) 0.8 x10^3/uL (1.0-4.8) Monocytes # (Auto) 0.5 x10^3/uL (0.0-1.1) Eosinophils # (Auto) 0.1 x10^3/uL (0.0-0.7) Basophils # (Auto) 0.0 x10^3/uL (0.0-0.2) Segmented Neutrophils % 71 % (35-66) Band Neutrophils % 22 % (0-9) Lymphocytes % 3 % (24-48) Atypical Lymphocytes % (Manual) 2 % (0-0) Myelocytes % 2 % (0-0) Toxic Granulation Present Toxic Vacuolation Present Platelet Estimate Adequate (ADEQUATE) Large Platelets Few Sodium Level 157 mmol/L (136-145) Potassium Level 4.6 mmol/L (3.5-5.1) Chloride Level 120 mmol/L (98-107) Carbon Dioxide Level 30 mmol/L (21-32) Anion Gap 7 (6-14) Blood Urea Nitrogen 37 mg/dL (8-26) Creatinine 1.5 mg/dL (0.7-1.3) Estimated GFR (Cockcroft-Gault) 60.2 Glucose Level 278 mg/dL (70-99) Calcium Level 8.0 mg/dL (8.5-10.1) Phosphorus Level 2.8 mg/dL (2.6-4.7) Magnesium Level 2.4 mg/dL (1.8-2.4) Albumin 1.6 g/dL (3.4-5.0) O2 Saturation 98 % (92-99) Arterial Blood pH 7.43 (7.35-7.45) Arterial Blood pCO2 at Patient Temp 38 mmHg (35-46) Arterial Blood pO2 at Patient Temp 114 mmHg (75-108) Arterial Blood HCO3 25 mmol/L (21-28) Arterial Blood Base Excess 1 mmol/L (-3-3) FiO2 40 Glucose (Fingerstick) 255 mg/dL (70-99) 323 mg/dL (70-99) Test 06/21/19 17:07 06/21/19 19:50 06/21/19 23:29 06/22/19 03:52 Glucose (Fingerstick) 315 mg/dL (70-99) 303 mg/dL (70-99) 306 mg/dL (70-99) 320 mg/dL (70-99) Test 06/22/19 05:40 06/22/19 08:20 06/22/19 08:56 White Blood Count 18.0 x10^3/uL (4.0-11.0) Red Blood Count 3.34 x10^6/uL (4.30-5.70) Hemoglobin 9.6 g/dL (13.0-17.5) Hematocrit 30.2 % (39.0-53.0) Mean Corpuscular Volume 90 fL (79-100) Mean Corpuscular Hemoglobin 29 pg (25-35) Mean Corpuscular Hemoglobin Concent 32 g/dL (31-37) Red Cell Distribution Width 14.4 % (11.5-14.5) Platelet Count 286 x10^3/uL (140-400) Neutrophils (%) (Auto) 94 % (31-73) Lymphocytes (%) (Auto) 2 % (24-48) Monocytes (%) (Auto) 3 % (0-9) Eosinophils (%) (Auto) 0 % (0-3) Basophils (%) (Auto) 0 % (0-3) Neutrophils # (Auto) 17.0 x10^3/uL (1.8-7.7) Lymphocytes # (Auto) 0.4 x10^3/uL (1.0-4.8) Monocytes # (Auto) 0.6 x10^3/uL (0.0-1.1) Eosinophils # (Auto) 0.0 x10^3/uL (0.0-0.7) Basophils # (Auto) 0.0 x10^3/uL (0.0-0.2) Sodium Level 152 mmol/L (136-145) Potassium Level 4.8 mmol/L (3.5-5.1) Chloride Level 116 mmol/L (98-107) Carbon Dioxide Level 28 mmol/L (21-32) Anion Gap 8 (6-14) Blood Urea Nitrogen 33 mg/dL (8-26) Creatinine 1.4 mg/dL (0.7-1.3) Estimated GFR (Cockcroft-Gault) 65.2 Glucose Level 364 mg/dL (70-99) Calcium Level 8.1 mg/dL (8.5-10.1) Phosphorus Level 2.7 mg/dL (2.6-4.7) Magnesium Level 2.0 mg/dL (1.8-2.4) Lipase 219 U/L (73-393) O2 Saturation 98 % (92-99) Arterial Blood pH 7.41 (7.35-7.45) Arterial Blood pCO2 at Patient Temp 40 mmHg (35-46) Arterial Blood pO2 at Patient Temp 120 mmHg (75-108) Arterial Blood HCO3 24 mmol/L (21-28) Arterial Blood Base Excess 0 mmol/L (-3-3) FiO2 40 Glucose (Fingerstick) 95 mg/dL (70-99) Laboratory Tests Test 06/21/19 14:18 06/21/19 17:07 06/21/19 19:50 06/21/19 23:29 Glucose (Fingerstick) 323 mg/dL (70-99) 315 mg/dL (70-99) 303 mg/dL (70-99) 306 mg/dL (70-99) Test 06/22/19 03:52 06/22/19 05:40 06/22/19 08:20 06/22/19 08:56 Glucose (Fingerstick) 320 mg/dL (70-99) 95 mg/dL (70-99) White Blood Count 18.0 x10^3/uL (4.0-11.0) Red Blood Count 3.34 x10^6/uL (4.30-5.70) Hemoglobin 9.6 g/dL (13.0-17.5) Hematocrit 30.2 % (39.0-53.0) Mean Corpuscular Volume 90 fL (79-100) Mean Corpuscular Hemoglobin 29 pg (25-35) Mean Corpuscular Hemoglobin Concent 32 g/dL (31-37) Red Cell Distribution Width 14.4 % (11.5-14.5) Platelet Count 286 x10^3/uL (140-400) Neutrophils (%) (Auto) 94 % (31-73) Lymphocytes (%) (Auto) 2 % (24-48) Monocytes (%) (Auto) 3 % (0-9) Eosinophils (%) (Auto) 0 % (0-3) Basophils (%) (Auto) 0 % (0-3) Neutrophils # (Auto) 17.0 x10^3/uL (1.8-7.7) Lymphocytes # (Auto) 0.4 x10^3/uL (1.0-4.8) Monocytes # (Auto) 0.6 x10^3/uL (0.0-1.1) Eosinophils # (Auto) 0.0 x10^3/uL (0.0-0.7) Basophils # (Auto) 0.0 x10^3/uL (0.0-0.2) Sodium Level 152 mmol/L (136-145) Potassium Level 4.8 mmol/L (3.5-5.1) Chloride Level 116 mmol/L (98-107) Carbon Dioxide Level 28 mmol/L (21-32) Anion Gap 8 (6-14) Blood Urea Nitrogen 33 mg/dL (8-26) Creatinine 1.4 mg/dL (0.7-1.3) Estimated GFR (Cockcroft-Gault) 65.2 Glucose Level 364 mg/dL (70-99) Calcium Level 8.1 mg/dL (8.5-10.1) Phosphorus Level 2.7 mg/dL (2.6-4.7) Magnesium Level 2.0 mg/dL (1.8-2.4) Lipase 219 U/L (73-393) O2 Saturation 98 % (92-99) Arterial Blood pH 7.41 (7.35-7.45) Arterial Blood pCO2 at Patient Temp 40 mmHg (35-46) Arterial Blood pO2 at Patient Temp 120 mmHg (75-108) Arterial Blood HCO3 24 mmol/L (21-28) Arterial Blood Base Excess 0 mmol/L (-3-3) FiO2 40 Microbiology 06/20/19 Blood Culture - Preliminary, Resulted NO GROWTH AFTER 2 DAYS Medications Current Medications Morphine Sulfate (Morphine Sulfate) 4 mg PRN Q15MIN PRN IV/SQ PAIN GREATER THAN 3/10 Last administered on 06/11/19at 04:58; Start 06/11/19 at 04:30; Stop 06/11/19 at 16:47; Status DC Sodium Chloride 1,000 ml @ 1,000 mls/hr Q1H IV Last administered on 06/11/19at 04:34; Start 06/11/19 at 04:30; Stop 06/11/19 at 05:29; Status DC Ondansetron HCl (Zofran) 4 mg 1X ONCE IV Last administered on 06/11/19at 04:33; Start 06/11/19 at 04:30; Stop 06/11/19 at 04:33; Status DC Iohexol (Omnipaque 350 Mg/ml) 100 ml 1X ONCE IV Last administered on 06/11/19at 05:01; Start 06/11/19 at 04:45; Stop 06/11/19 at 04:46; Status DC Info (CONTRAST GIVEN -- Rx MONITORING) 1 each PRN DAILY PRN MC SEE COMMENTS; Start 06/11/19 at 04:45; Stop 06/13/19 at 04:44; Status DC Fentanyl Citrate (Fentanyl 2ml Vial) 100 mcg STK-MED ONCE .ROUTE ; Start 06/11/19 at 04:42; Stop 06/11/19 at 04:42; Status DC Fentanyl Citrate (Fentanyl 2ml Vial) 50 mcg 1X ONCE IVP Last administered on 06/11/19at 04:45; Start 06/11/19 at 05:00; Stop 06/11/19 at 05:01; Status DC Ondansetron HCl (Zofran) 4 mg PRN Q8HRS PRN IV NAUSEA/VOMITING Last administered on 06/12/19at 03:29; Start 06/11/19 at 05:45; Stop 06/12/19 at 05:44; Status DC Morphine Sulfate (Morphine Sulfate) 4 mg PRN Q2HR PRN IV PAIN Last administered on 06/11/19at 07:37; Start 06/11/19 at 05:45; Stop 06/11/19 at 11:54; Status DC Sodium Chloride 1,000 ml @ 150 mls/hr Q6H40M IV Last administered on 06/12/19at 03:28; Start 06/11/19 at 05:45; Stop 06/12/19 at 11:01; Status DC Hydromorphone HCl (Dilaudid) 0.5 mg PRN Q3HRS PRN IV PAIN Last administered on 06/11/19at 08:38; Start 06/11/19 at 05:45; Stop 06/11/19 at 09:12; Status DC Potassium Chloride/Water 100 ml @ 100 mls/hr Q1H IV Last administered on 06/11/19at 08:41; Start 06/11/19 at 06:00; Stop 06/11/19 at 07:59; Status DC Hydromorphone HCl (Dilaudid) 1 mg PRN Q3HRS PRN IV PAIN Last administered on 06/11/19at 09:29; Start 06/11/19 at 09:15; Stop 06/11/19 at 11:54; Status DC Prochlorperazine Edisylate (Compazine) 10 mg PRN Q8HRS PRN IV NAUSEA/VOMITING Last administered on 06/12/19at 14:59; Start 06/11/19 at 12:00 Hydromorphone HCl (Dilaudid) 1 mg PRN Q2HRS PRN IV PAIN Last administered on 06/21/19at 14:36; Start 06/11/19 at 12:00 Pantoprazole Sodium (PROTONIX VIAL for IV PUSH) 40 mg DAILYAC IVP Last administered on 06/12/19at 08:29; Start 06/11/19 at 15:00; Stop 06/12/19 at 16:23; Status DC Lorazepam (Ativan Inj) 1 mg PRN Q6HRS PRN IVP ANXIETY / AGITATION Last administered on 06/14/19at 13:00; Start 06/11/19 at 18:15 Hydralazine HCl (Apresoline Inj) 10 mg PRN Q6HRS PRN IVP ELEVATED BP, SEE COMMENTS Last administered on 06/18/19at 09:32; Start 06/11/19 at 18:15; Stop 06/21/19 at 09:12; Status DC Nystatin (Nystop) 1 devorah PRN QID PRN TP FUNGAL RASH Last administered on at 23:19; Start 06/11/19 at 23:15 Sodium Chloride 1,000 ml @ 1,000 mls/hr 1X ONCE IV Last administered on 06/12/19at 05:27; Start 06/12/19 at 06:00; Stop 06/12/19 at 06:59; Status DC Sodium Chloride 1,000 ml @ 1,000 mls/hr 1X ONCE IV Last administered on 06/12/19at 05:25; Start 06/12/19 at 05:00; Stop 06/12/19 at 05:59; Status DC Sodium Chloride 1,000 ml @ 200 mls/hr Q5H IV Last administered on 06/12/19at 06:36; Start 06/12/19 at 07:00; Stop 06/12/19 at 11:01; Status DC Sodium Bicarbonate 50 meq/Sodium Chloride 1,050 ml @ 150 mls/hr Q7H IV Last administered on 06/13/19at 04:16; Start 06/12/19 at 11:00; Stop 06/13/19 at 14 :48; Status DC Amino Acids/ Glycerin/ Electrolytes 1,000 ml @ 80 mls/hr [id number] IV ; Start 06/12/19 at 10:00; Status UNV Amino Acids/ Electrolytes/ Dextrose 1,000 ml @ 80 mls/hr [id number] IV ; Start 06/12/19 at 10:15; Stop 06/18/19 at 13:50; Status DC Piperacillin Sod/ Tazobactam Sod (Zosyn Per Pharmacy) 1 each PRN DAILY PRN MC SEE COMMENTS; Start 06/12/19 at 13:15; Stop 06/12/19 at 19:16; Status DC Piperacillin Sod/ Tazobactam Sod 2.25 gm/Sodium Chloride 50 ml @ 100 mls/hr Q6HRS IV Last administered on 06/12/19at 13:48; Start 06/12/19 at 13:30; Stop 06/12/19 at 19:15; Status DC Sodium Bicarbonate (Sodium Bicarb Adult 8.4% Syr) 50 meq 1X ONCE IV Last administered on 06/12/19at 16:12; Start 06/12/19 at 16:00; Stop 06/12/19 at 16:01; Status DC Calcium Gluconate 1000 mg/Sodium Chloride 110 ml @ 220 mls/hr 1X ONCE IV Last administered on 06/12/19at 16:13; Start 06/12/19 at 16:00; Stop 06/12/19 at 16:29; Status DC Dextrose (Dextrose 50%-Water Syringe) 25 gm 1X ONCE IV Last administered on 06/12/19at 16:13; Start 06/12/19 at 16:00; Stop 06/12/19 at 16:01; Status DC Insulin Human Regular (HumuLIN R VIAL) 10 unit 1X ONCE IV Last administered on 06/12/19at 16:14; Start 06/12/19 at 16:00; Stop 06/12/19 at 16:01; Status DC Furosemide (Lasix) 40 mg 1X ONCE IVP Last administered on 06/12/19at 16:13; Start 06/12/19 at 16:00; Stop 06/12/19 at 16:01; Status DC Pantoprazole Sodium (PROTONIX VIAL for IV PUSH) 40 mg [id number] IVP Last administered on 06/13/19at 06:21; Start 06/12/19 at 18:00; Stop 06/13/19 at 18:49; Status DC Meropenem 500 mg/ Sodium Chloride 50 ml @ 100 mls/hr Q12HR IV Last administered on 06/17/19at 20:59; Start 06/12/19 at 21:00; Stop 06/18/19 at 07:26; Status DC Calcium Gluconate 1000 mg/Sodium Chloride 110 ml @ 220 mls/hr 1X ONCE IV Last administered on 06/12/19at 20:35; Start 06/12/19 at 19:15; Stop 06/12/19 at 19:44; Status DC Lidocaine HCl (Buffered Lidocaine 1%) 3 ml STK-MED ONCE .ROUTE ; Start 06/13/19 at 08:47; Stop 06/13/19 at 08:47; Status DC Lidocaine HCl (Buffered Lidocaine 1%) 6 ml 1X ONCE INJ Last administered on 06/13/19at 09:23; Start 06/13/19 at 09:30; Stop 06/13/19 at 09:31; Status DC Insulin Human Lispro (HumaLOG) 0-7 UNITS TIDWMEALS SQ Last administered on 06/13/19at 12:14; Start 06/13/19 at 12:00; Stop 06/14/19 at 23:29; Status DC Dextrose (Dextrose 50%-Water Syringe) 12.5 gm PRN Q15MIN PRN IV SEE COMMENTS; Start 06/13/19 at 11:15; Stop 06/14/19 at 23:29; Status DC Insulin Human Regular 100 unit/ Sodium Chloride 101 ml @ 0 mls/hr CONT PRN IV SEE I/O RECORD Last administered on 06/13/19at 15:03; Start 06/13/19 at 14:15; Stop 06/21/19 at 12:37; Status DC Sodium Chloride 1,000 ml @ 1,000 mls/hr Q1H PRN IV hypotension; Start 06/13/19 at 14:00; Stop 06/13/19 at 19:59; Status DC Sodium Chloride 1,000 ml @ 400 mls/hr Q2H30M PRN IV PATENCY; Start 06/13/19 at 14:00; Stop 06/14/19 at 01:59; Status DC Info (PHARMACY MONITORING -- do not chart) 1 each PRN DAILY PRN MC SEE COMMENTS; Start 06/13/19 at 14:45; Stop 06/13/19 at 14:51; Status DC Info (PHARMACY MONITORING -- do not chart) 1 each PRN DAILY PRN MC SEE COMMENTS; Start 06/13/19 at 14:45 Pantoprazole Sodium (PROTONIX VIAL for IV PUSH) 40 mg [id number] IVP Last administered on 06/22/19at 05:39; Start 06/13/19 at 21:00 Dexmedetomidine HCl 400 mcg/ Sodium Chloride 100 ml @ 0 mls/hr CONT PRN IV PER PROTOCOL Last administered on 06/21/19at 05:52; Start 06/13/19 at 19:00; Stop 06/21/19 at 19:39; Status DC Sodium Chloride 500 ml @ 500 mls/hr 1X PRN PRN IV SEE COMMENTS; Start 06/13/19 at 19:00 Atropine Sulfate (ATROPINE 0.5mg SYRINGE) 0.5 mg PRN Q5MIN PRN IV SEE COMMENTS; Start 06/13/19 at 19:00 Sodium Chloride 1,000 ml @ 1,000 mls/hr Q1H PRN IV hypotension; Start 06/14/19 at 08:55; Stop 06/14/19 at 14:54; Status DC Albumin Human 200 ml @ 200 mls/hr 1X PRN PRN IV Hypotension Last administered on 06/14/19at 09:40; Start 06/14/19 at 09:00; Stop 06/14/19 at 14:59; Status DC Sodium Chloride 1,000 ml @ 400 mls/hr Q2H30M PRN IV PATENCY; Start 06/14/19 at 08:55; Stop 06/14/19 at 20:54; Status DC Info (PHARMACY MONITORING -- do not chart) 1 each PRN DAILY PRN MC SEE COMMENTS; Start 06/14/19 at 09:00; Stop 06/14/19 at 09:06; Status DC Info (PHARMACY MONITORING -- do not chart) 1 each PRN DAILY PRN MC SEE COMMENTS; Start 06/14/19 at 09:00; Stop 06/14/19 at 09:06; Status DC Calcium Chloride 2000 mg/Sodium Chloride 120 ml @ 240 mls/hr PRN QID PRN IV for CALCIUM < 5.8 Last administered on 06/15/19at 08:32; Start 06/14/19 at 10:15; Stop 06/15/19 at 09:58; Status DC Magnesium Sulfate 50 ml @ 25 mls/hr PRN DAILY PRN IV for Mag < 1.7 on am labs; Start 06/14/19 at 10:30 Norepinephrine Bitartrate 8 mg/ Dextrose 258 ml @ 20.027 mls/ hr CONT PRN IV PER PROTOCOL Last administered on 06/14/19at 10:31; Start 06/14/19 at 10:30 Succinylcholine Chloride (Anectine) 200 mg STK-MED ONCE .ROUTE ; Start 06/14/19 at 12:22; Stop 06/14/19 at 12:23; Status DC Etomidate (Amidate) 20 mg STK-MED ONCE IV ; Start 06/14/19 at 12:22; Stop 06/14/19 at 12:23; Status DC Fentanyl Citrate 30 ml @ 0 mls/hr CONT PRN IV SEE PROTOCOL Last administered on 06/19/19 08:10; Start 06/14/19 at 12:45; Stop 06/19/19 at 11:00; Status DC Chlorhexidine Gluconate (Peridex) 15 ml BID MM Last administered on 06/21/19at 20:39; Start 06/14/19 at 21:00 Midazolam HCl 50 mg/Sodium Chloride 50 ml @ 0 mls/hr CONT PRN IV SEE PROTOCOL Last administered on 06/22/19 11:11; Start 06/14/19 at 12:45 Midazolam HCl (Versed) 5 mg STK-MED ONCE .ROUTE ; Start 06/14/19 at 12:48; Stop 06/14/19 at 12:48; Status DC Fentanyl Citrate (Fentanyl 2ml Vial) 100 mcg STK-MED ONCE .ROUTE ; Start 06/14/19 at 12:48; Stop 06/14/19 at 12:48; Status DC Midazolam HCl (Versed) 5 mg 1X ONCE IV Last administered on 06/14/19at 12:59; Start 06/14/19 at 13:00; Stop 06/14/19 at 13:01; Status DC Fentanyl Citrate (Fentanyl 2ml Vial) 100 mcg 1X ONCE IM Last administered on 06/14/19 12:58; Start 06/14/19 at 13:00; Stop 06/14/19 at 13:01; Status DC Succinylcholine Chloride (Anectine) 200 mg 1X ONCE IV Last administered on 06/14/19at 12:59; Start 06/14/19 at 13:00; Stop 06/14/19 at 13:01; Status DC Etomidate (Amidate) 14 mg 1X ONCE IV Last administered on 06/14/19at 12:59; Start 06/14/19 at 13:00; Stop 06/14/19 at 13:01; Status DC Acetaminophen (Tylenol Supp) 650 mg PRN Q6HRS PRN MI MILD PAIN / TEMP Last administered on 06/21/19 19:39; Start 06/14/19 at 20:00 Linezolid/Dextrose 300 ml @ 300 mls/hr Q12HR IV Last administered on 06/22/19 11:10; Start 06/14/19 at 21:00 Insulin Human Lispro (HumaLOG) 0-7 UNITS TIDWMEALS SQ ; Start 06/15/19 at 08:00; Stop 06/15/19 at 00:03; Status DC Dextrose (Dextrose 50%-Water Syringe) 12.5 gm PRN Q15MIN PRN IV SEE COMMENTS; Start 06/14/19 at 23:30 Insulin Human Lispro (HumaLOG) 0-7 UNITS Q4HRS SQ Last administered on 06/22/19at 04:00; Start 06/15/19 at 00:15 Calcium Gluconate 23418 mg/Sodium Chloride 494 ml @ 4.051 mls/ hr CONT PRN IV SYMPTOMATIC HYPOCALCEMIA; Start 06/15/19 at 09:30; Stop 06/15/19 at 09:23; Status DC Calcium Gluconate 5000 mg/Sodium Chloride 260 ml @ 5.543 mls/ hr CONT PRN IV SYMPTOMATIC HYPOCALCEMIA; Start 06/15/19 at 09:30; Stop 06/15/19 at 09:26; Status DC Calcium Gluconate 5000 mg/Sodium Chloride 260 ml @ 5.543 mls/ hr CONT PRN IV SYMPTOMATIC HYPOCALCEMIA; Start 06/15/19 at 09:30; Stop 06/15/19 at 09:29; Status DC Calcium Gluconate 5000 mg/Sodium Chloride 250 ml @ 28.782 mls/ hr CONT PRN IV SYMPTOMATIC HYPOCALCEMIA Last administered on 06/18/19at 06:12; Start 06/15/19 at 09:30; Stop 06/18/19 at 13:50; Status DC Lidocaine HCl (Lidocaine Pf 2% Vial) 5 ml STK-MED ONCE .ROUTE ; Start 06/14/19 at 12:00; Stop 06/17/19 at 10:37; Status DC Meropenem 500 mg/ Sodium Chloride 50 ml @ 100 mls/hr Q6HRS IV Last administered on 06/22/19at 11:37; Start 06/18/19 at 07:30 Nicardipine HCl 50 mg/Sodium Chloride 250 ml @ 25 mls/hr CONT PRN IV SEE I/O RECORD; Start 06/18/19 at 11:45 Metoprolol Tartrate (Lopressor Vial) 5 mg 1X ONCE IVP ; Start 06/18/19 at 12:15; Stop 06/18/19 at 12:16; Status DC Fentanyl Citrate (Fentanyl 600 Mcg/30 ml BATCH TRUCKER) 600 mcg STK-MED ONCE IV ; Start 06/15/19 at 05:30; Stop 06/18/19 at 12:07; Status DC Enoxaparin Sodium (Lovenox 40mg Syringe) 40 mg Q24H SQ Last administered on 06/21/19at 23:02; Start 06/18/19 at 22:30; Stop 06/22/19 at 11:07; Status DC Fentanyl Citrate 55 ml @ 1.98 mls/hr CONT PRN IV SEE PROTOCOL; Start 06/19/19 at 08:15; Status Cancel Info (Tpn Per Pharmacy) 1 each PRN DAILY PRN MC SEE COMMENTS Last administered on 06/22/19at 11:43; Start 06/19/19 at 11:15 Hydralazine HCl (Apresoline Inj) 10 mg PRN Q4HRS PRN IVP ELEVATED BP, 1st choice; Start 06/19/19 at 11:45 Labetalol HCl (Normodyne Iv Push) 20 mg PRN Q2HR PRN IVP HYPERTENSION, 2nd choice Last administered on 06/22/19at 06:31; Start 06/19/19 at 11:45 Potassium Phosphate 13.6 mmol/Magnesium Sulfate 10 meq/ Calcium Gluconate 20 meq/ Multivitamins 10 ml/Chromium/ Copper/Manganese/ Seleni/Zn 0.5 ml/ Total Parenteral Nutrition/Amino Acids/Dextrose/ Fat Emulsion Intravenous 1,920 ml @ 80 mls/hr TPN CONT IV Last administered on 06/19/19at 21:31; Start 06/19/19 at 22:00; Stop 06/20/19 at 21:59; Status DC Fentanyl Citrate 30 ml @ 0 mls/hr CONT PRN IV SEE PROTOCOL Last administered on 06/22/19at 06:35; Start 06/19/19 at 18:00 Micafungin Sodium 100 mg/Dextrose 100 ml @ 100 mls/hr Q24H IV Last administered on 06/22/19at 11:11; Start 06/20/19 at 09:00 Potassium Phosphate 13.6 mmol/Calcium Gluconate 20 meq/ Multivitamins 10 ml/Chromium/ Copper/Manganese/ Seleni/Zn 0.5 ml/ Insulin Human Regular 10 unit/ Total Parenteral Nutrition/Amino Acids/Dextrose/ Fat Emulsion Intravenous 1,920 ml @ 80 mls/hr TPN CONT IV Last administered on 06/20/19at 21:57; Start 06/20/19 at 22:00; Stop 06/21/19 at 21:59; Status DC Insulin Glargine (Lantus Syringe) 15 unit QHS SQ Last administered on 06/20/19at 20:46; Start 06/20/19 at 21:00; Stop 06/21/19 at 12:32; Status DC Insulin Glargine (Lantus Syringe) 20 unit QHS SQ Last administered on 06/21/19at 20:40; Start 06/21/19 at 21:00 Potassium Phosphate 13.6 mmol/Calcium Gluconate 20 meq/ Multivitamins 10 ml/Chromium/ Copper/Manganese/ Seleni/Zn 0.5 ml/ Insulin Human Regular 10 unit/ Total Parenteral Nutrition/Amino Acids/Dextrose/ Fat Emulsion Intravenous 1,920 ml @ 80 mls/hr TPN CONT IV Last administered on 06/21/19at 21:31; Start 06/21/19 at 22:00; Stop 06/22/19 at 21:59 Dextrose 1,000 ml @ 75 mls/hr [id number] IV ; Start 06/22/19 at 07:00 Albuterol Sulfate (Ventolin Neb Soln) 2.5 mg RTQID NEB Last administered on 06/22/19at 11:31; Start 06/22/19 at 08:00 Iohexol (Omnipaque 240 Mg/ml) 30 ml 1X ONCE PO ; Start 06/22/19 at 08:00; Stop 06/22/19 at 08:05; Status DC Iohexol (Omnipaque 300 Mg/ml) 75 ml 1X ONCE IV ; Start 06/22/19 at 08:00; Stop 06/22/19 at 08:01; Status Cancel Info (CONTRAST GIVEN -- Rx MONITORING) 1 each PRN DAILY PRN MC SEE COMMENTS; Start 06/22/19 at 08:15; Stop 06/24/19 at 08:14 Cefoxitin Sodium (Mefoxin) 2 gm 1X PREOP IVP ; Start 06/22/19 at 11:00; Stop 06/22/19 at 11:16; Status DC Cefoxitin Sodium (Mefoxin) 2 gm 1X PREOP ONCE IVP Last administered on 06/22/19at 11:37; Start 06/22/19 at 11:30; Stop 06/22/19 at 11:31; Status DC Rocuronium [place] (Zemuron) 50 mg STK-MED ONCE .ROUTE ; Start 06/22/19 at 11:42; Stop 06/22/19 at 11:42; Status DC Propofol 20 ml @ As Directed STK-MED ONCE IV ; Start 06/22/19 at 11:42; Stop 06/21 at 11:43; Status DC Dexamethasone Sodium Phosphate (Decadron) 4 mg STK-MED ONCE .ROUTE ; Start 06/22/19 at 11:45; Stop 06/22/19 at 11:45; Status DC Ondansetron HCl (Zofran) 4 mg STK-MED ONCE .ROUTE ; Start 06/22/19 at 11:45; Stop 06/22/19 at 11:45; Status DC Potassium Phosphate 13.6 mmol/Magnesium Sulfate 5 meq/ Calcium Gluconate 20 meq/ Multivitamins 10 ml/Chromium/ Copper/Manganese/ Seleni/Zn 0.5 ml/ Total Parenteral Nutrition/Amino Acids/Dextrose/ Fat Emulsion Intravenous 1,920 ml @ 80 mls/hr TPN CONT IV ; Start 06/22/19 at 22:00; Stop 06/23/19 at 21:59 Active Scripts Active Vitals/I & O Vital Sign - Last 24 Hours 06/21/19 06/21/19 06/21/19 06/21/19 12:00 12:00 13:00 13:09 Temp 102.2 102.2 Pulse 10 108 Resp 18 18 B/P (MAP) 148/90 (109) 152/96 (114) Pulse Ox 100 100 100 O2 Delivery Ventilator Mechanical Ventilator Ventilator Ventilator 06/21/19 06/21/19 06/21/19 06/21/19 14:00 14:25 14:29 14:36 Temp 101.1 101.1 Pulse 124 Resp 18 20 B/P (MAP) 186/103 (130) Pulse Ox 100 100 100 100 O2 Delivery Ventilator O2 Flow Rate 3.0 3.0 06/21/19 06/21/19 06/21/19 06/21/19 14:55 14:59 14:59 15:00 Pulse 118 Resp 22 22 18 B/P (MAP) 118/71 (87) Pulse Ox 100 100 100 99 O2 Delivery Ventilator O2 Flow Rate 3.0 06/21/19 06/21/19 06/21/19 06/21/19 15:24 16:00 16:00 16:28 Pulse 134 112 Resp 18 B/P (MAP) 161/113 (129) 167/113 Pulse Ox 100 100 O2 Delivery Ventilator Mechanical Ventilator Ventilator 06/21/19 06/21/19 06/21/19 06/21/19 17:00 17:15 18:00 19:00 Temp 101.5 101.5 Pulse 110 118 124 Resp 18 18 18 B/P (MAP) 142/79 (100) 150/89 (109) 164/99 (120) Pulse Ox 100 100 100 100 O2 Delivery Ventilator Ventilator Ventilator Ventilator 06/21/19 06/21/19 06/21/19 06/21/19 19:42 19:42 19:45 20:00 Temp 101.0 101.0 Pulse 124 104 Resp 18 B/P (MAP) 163/89 131/76 (94) Pulse Ox 100 100 O2 Delivery Ventilator Mechanical Ventilator Ventilator 06/21/19 06/21/19 06/21/19 06/21/19 20:50 21:00 21:32 21:53 Pulse 106 107 Resp 18 B/P (MAP) 141/91 (108) 153/95 Pulse Ox 100 100 O2 Delivery Ventilator Ventilator Ventilator 06/21/19 06/21/19 06/21/19 06/21/19 22:00 22:05 23:00 23:40 Temp 99.8 98.6 99.8 98.6 Pulse 94 95 Resp 18 18 B/P (MAP) 119/81 (94) 127/81 (96) Pulse Ox 100 100 O2 Delivery Ventilator Ventilator Ventilator Mechanical Ventilator 06/21/19 06/22/19 06/22/19 06/22/19 23:55 00:00 00:21 01:00 Temp 98.6 99.1 98.6 99.1 Pulse 99 103 97 Resp 18 18 B/P (MAP) 151/83 (105) 151/83 143/73 (96) Pulse Ox 100 100 100 O2 Delivery Ventilator Ventilator Ventilator 06/22/19 06/22/19 06/22/19 06/22/19 01:35 03:00 03:18 03:45 Pulse 100 104 Resp 18 B/P (MAP) 131/79 (96) 144/78 Pulse Ox 100 100 O2 Delivery Ventilator Ventilator Mechanical Ventilator 06/22/19 06/22/19 06/22/19 06/22/19 04:00 05:00 05:08 06:00 Temp 99.7 99.7 Pulse 98 106 108 Resp 18 18 18 B/P (MAP) 125/76 (92) 145/77 (99) 142/84 (103) Pulse Ox 100 100 100 100 O2 Delivery Ventilator Ventilator Ventilator Ventilator 06/22/19 06/22/19 06/22/19 06/22/19 06:31 06:35 07:05 07:34 Pulse 104 Resp 18 B/P (MAP) 151/87 Pulse Ox 98 100 O2 Delivery Ventilator Ventilator 06/22/19 06/22/19 09:49 11:20 Pulse Ox 100 100 O2 Delivery Ventilator Ventilator Intake and Output 06/21/19 06/21/19 06/22/19 15:00 23:00 07:00 Intake Total 0 ml 915 ml 953 ml Output Total 1050 ml 1350 ml 820 ml Balance -1050 ml -435 ml 133 ml Hemodynamically unstable?: Yes Is patient in severe pain?: Yes Is NPO status required?: Yes JERSON AVILES MD Jun 22, 2019 11:55
--- NOTE | 2019-06-22 12:02 | NUR ---
Pharmacy TPN Dosing Note S: CHRISTOPHER NEWSOME is a 49 year old M Currently receiving Central Continuous TPN started 06/19/19 B:Pertinent PMH: PANCREATITIS Height: 5 feet, 9 inches Weight: 102.6 kg Current diet: NPO LABS: Sodium: 152 Potassium: 4.8 Chloride: 116 Calcium: 8.1 Corrected Calcium: 10.02 Magnesium: 2 CO2: 28 SCr: 1.4 Glucose: 95-364 Albumin: 1.6 AST: 137 ALT: 66 TPN FORMULA: TPN TYPE: Central Continuous AMINO ACIDS: 100 gm DEXTROSE: 200 gm LIPIDS: 20 gm POTASSIUM PHOSPHATE: 13.6 mmol MAGNESIUM: 5 mEq CALCIUM: 20 mEq MULTIPLE VITAMIN: 10 ml TRACE ELEMENTS: MTE 5 0.5 ml(s) TPN PLAN: Based on trend, will add magnesium back to TPN at half standard amount. Insulin removed from TPN w/finger stick glucose at 95 (patient has lantus 20 units and sliding scale insulin ordered) R: Continue TPN Will monitor electrolytes, glucose, and tolerance to TPN. Azul Rodriges [facility], 06/22/19 [id number]
--- NOTE | 2019-06-22 12:05 | PDOC ---
SUBJECTIVE ROS Intubated, abdomen distended OBJECTIVE Vital Signs Vital Signs Date Time Temp Pulse Resp B/P (MAP) Pulse Ox O2 Delivery O2 Flow Rate FiO2 06/22/19 11:20 100 Ventilator 06/22/19 07:05 18 06/22/19 06:31 104 151/87 06/22/19 04:00 99.7 99.7 06/21/19 14:55 3.0 I & 0 Intake and Output 06/22/19 07:00 Intake Total 1868 ml Output Total 3220 ml Balance -1352 ml Intake Oral 0 ml IV Total 1868 ml Output Urine Total 3220 ml PHYSICAL EXAM Physical Exam GENERAL: Sedated, orally intubated on vent HEENT: OGT/ETT in place NECK: Supple LUNGS: Diminished aeration bases HEART: S1, S2, regular, no murmurs. ABDOMEN: Increased Distension, : [place] EXTREMITIES: trace edema, no cyanosis SKIN: Warm, dry. 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 [employer]: Sedated RIJ/HD catheter (06/13) DIAGNOSIS/ASSESSMENT Assessment & Plan ARF/ ATN : Required HD x 2 - On 06/13 and , stable Good UOP, supportive care,avoid nephrotoxins Abdominal distension/Fever- Intra Abd pressure 18-->22 , good UOP, stable renal function Ct scan with Oral contrast 06/20 Severe necrotizing pancreatitis- GS following- repeat Ct with necrosis and diffuse inflammation and fluid. Plan to take him to the OR today -Cholecystectomy with cholangiogram, secondary to suspect gallstone pancreatitis;G-J tube for enteral nutrition past ligament of treitz. Sepsis from GI HyperNatremia- Better, still above goal Na increased - free water replacement with IV D5 W gtt Sev HypoCalcemia - due to Pancreatitis Currently Normal Ca after corrected for Albumin (iCa mildly low) . IV Ca Dced 06/17 PTH and Phos wnl , Acute Resp failure - intubated Metabolic acidosis- resolved COMMENT/RELEVANT DATA Meds Current Medications Medications (Trade) Dose Ordered Sig/Jesse Start Time Stop Time Status Last Admin Dose Admin Acetaminophen (Tylenol Supp) 650 mg PRN Q6HRS PRN 06/14/19 20:00 06/21/19 19:39 650 MG Albumin Human 200 ml @ 200 mls/hr 1X PRN PRN 06/14/19 09:00 06/14/19 14:59 DC 06/14/19 09:40 200 MLS/HR Albuterol Sulfate (Ventolin Neb Soln) 2.5 mg RTQID 06/22/19 08:00 06/22/19 11:31 2.5 MG Amino Acids/ Electrolytes/ Dextrose 1,000 ml @ 80 mls/hr [id number] 06/12/19 10:15 06/18/19 13:50 DC Amino Acids/ Glycerin/ Electrolytes 1,000 ml @ 80 mls/hr [id number] 06/12/19 10:00 UNV Atropine Sulfate (ATROPINE 0.5mg SYRINGE) 0.5 mg PRN Q5MIN PRN 06/13/19 19:00 Calcium Chloride 2000 mg/Sodium Chloride 120 ml @ 240 mls/hr PRN QID PRN 06/14/19 10:15 06/15/19 09:58 DC 06/15/19 08:32 240 MLS/HR Calcium Gluconate 1000 mg/Sodium Chloride 110 ml @ 220 mls/hr 1X ONCE 06/12/19 19:15 06/12/19 19:44 DC 06/12/19 20:35 220 MLS/HR Calcium Gluconate 5000 mg/Sodium Chloride 250 ml @ 28.782 mls/ hr CONT PRN 06/15/19 09:30 06/18/19 13:50 DC 06/18/19 06:12 28.782 MLS/HR Calcium Gluconate 52448 mg/Sodium Chloride 494 ml @ 4.051 mls/ hr CONT PRN 06/15/19 09:30 06/15/19 09:23 DC Cefoxitin Sodium (Mefoxin) 2 gm 1X PREOP ONCE 06/22/19 11:30 06/22/19 11:31 DC 06/22/19 11:37 2 GM Chlorhexidine Gluconate (Peridex) 15 ml BID 06/14/19 21:00 06/21/19 20:39 15 ML Dexamethasone Sodium Phosphate (Decadron) 4 mg STK-MED ONCE 06/22/19 11:45 06/22/19 11:45 DC Dexmedetomidine HCl 400 mcg/ Sodium Chloride 100 ml @ 0 mls/hr CONT PRN 06/13/19 19:00 06/21/19 19:39 DC 06/21/19 05:52 26.3 MLS/HR Dextrose 1,000 ml @ 75 mls/hr [id number] 06/22/19 07:00 Dextrose (Dextrose 50%-Water Syringe) 12.5 gm PRN Q15MIN PRN 06/14/19 23:30 Enoxaparin Sodium (Lovenox 40mg Syringe) 40 mg Q24H 06/18/19 22:30 06/22/19 11:07 DC 06/21/19 23:02 40 MG Etomidate (Amidate) 14 mg 1X ONCE 06/14/19 13:00 06/14/19 13:01 DC 06/14/19 12:59 14 MG Fentanyl Citrate 30 ml @ 0 mls/hr CONT PRN 06/19/19 18:00 06/22/19 06:35 2.5 MLS/HR Fentanyl Citrate (Fentanyl 2ml Vial) 100 mcg 1X ONCE 06/14/19 13:00 06/14/19 13:01 DC 06/14/19 12:58 100 MCG Fentanyl Citrate (Fentanyl 600 Mcg/30 ml DISASTER DIRECTOR) 600 mcg STK-MED ONCE 06/15/19 05:30 06/18/19 12:07 DC Furosemide (Lasix) 40 mg 1X ONCE 06/12/19 16:00 06/12/19 16:01 DC 06/12/19 16:13 40 MG Hydralazine HCl (Apresoline Inj) 10 mg PRN Q4HRS PRN 06/19/19 11:45 Hydromorphone HCl (Dilaudid) 1 mg PRN Q2HRS PRN 06/11/19 12:00 06/21/19 14:36 1 MG Info (CONTRAST GIVEN -- Rx MONITORING) 1 each PRN DAILY PRN 06/22/19 08:15 06/24/19 08:14 Info (PHARMACY MONITORING -- do not chart) 1 each PRN DAILY PRN 06/14/19 09:00 06/14/19 09:06 DC Info (Tpn Per Pharmacy) 1 each PRN DAILY PRN 06/19/19 11:15 06/22/19 11:43 1 EACH Insulin Glargine (Lantus Syringe) 20 unit QHS 06/21/19 21:00 06/21/19 20:40 20 UNIT Insulin Human Lispro (HumaLOG) 0-7 UNITS Q4HRS 06/15/19 00:15 06/22/19 04:00 7 UNITS Insulin Human Regular (HumuLIN R VIAL) 10 unit 1X ONCE 06/12/19 16:00 06/12/19 16:01 DC 06/12/19 16:14 10 UNIT Insulin Human Regular 100 unit/ Sodium Chloride 101 ml @ 0 mls/hr CONT PRN 06/13/19 14:15 06/21/19 12:37 DC 06/13/19 15:03 7.07 MLS/HR Iohexol (Omnipaque 240 Mg/ml) 30 ml 1X ONCE 06/22/19 08:00 06/22/19 08:05 DC Iohexol (Omnipaque 300 Mg/ml) 75 ml 1X ONCE 06/22/19 08:00 06/22/19 08:01 Cancel Iohexol (Omnipaque 350 Mg/ml) 100 ml 1X ONCE 06/11/19 04:45 06/11/19 04:46 DC 06/11/19 05:01 100 ML Labetalol HCl (Normodyne Iv Push) 20 mg PRN Q2HR PRN 06/19/19 11:45 06/22/19 06:31 20 MG Lidocaine HCl (Buffered Lidocaine 1%) 6 ml 1X ONCE 06/13/19 09:30 06/13/19 09:31 DC 06/13/19 09:23 6 ML Lidocaine HCl (Lidocaine Pf 2% Vial) 5 ml STK-MED ONCE 06/14/19 12:00 06/17/19 10:37 DC Linezolid/Dextrose 300 ml @ 300 mls/hr Q12HR 06/14/19 21:00 06/22/19 11:10 300 MLS/HR Lorazepam (Ativan Inj) 1 mg PRN Q6HRS PRN 06/11/19 18:15 06/14/19 13:00 2 MG Magnesium Sulfate 50 ml @ 25 mls/hr PRN DAILY PRN 06/14/19 10:30 Meropenem 500 mg/ Sodium Chloride 50 ml @ 100 mls/hr Q6HRS 06/18/19 07:30 06/22/19 11:37 100 MLS/HR Metoprolol Tartrate (Lopressor Vial) 5 mg 1X ONCE 06/18/19 12:15 06/18/19 12:16 DC Micafungin Sodium 100 mg/Dextrose 100 ml @ 100 mls/hr Q24H 06/20/19 09:00 06/22/19 11:11 100 MLS/HR Midazolam HCl (Versed) 5 mg 1X ONCE 06/14/19 13:00 06/14/19 13:01 DC 06/14/19 12:59 5 MG Midazolam HCl 50 mg/Sodium Chloride 50 ml @ 0 mls/hr CONT PRN 06/14/19 12:45 06/22/19 11:11 5 MLS/HR Morphine Sulfate (Morphine Sulfate) 4 mg PRN Q2HR PRN 06/11/19 05:45 06/11/19 11:54 DC 06/11/19 07:37 4 MG Nicardipine HCl 50 mg/Sodium Chloride 250 ml @ 25 mls/hr CONT PRN 06/18/19 11:45 Norepinephrine Bitartrate 8 mg/ Dextrose 258 ml @ 20.027 mls/ hr CONT PRN 06/14/19 10:30 06/14/19 10:31 20.027 MLS/HR Nystatin (Nystop) 1 devorah PRN QID PRN 06/11/19 23:15 06/11/19 23:19 1 DEVORAH Ondansetron HCl (Zofran) 4 mg STK-MED ONCE 06/22/19 11:45 06/22/19 11:45 DC Pantoprazole Sodium (PROTONIX VIAL for IV PUSH) 40 mg [id number] 06/13/19 21:00 06/22/19 05:39 40 MG Piperacillin Sod/ Tazobactam Sod (Zosyn Per Pharmacy) 1 each PRN DAILY PRN 06/12/19 13:15 06/12/19 19:16 DC Piperacillin Sod/ Tazobactam Sod 2.25 gm/Sodium Chloride 50 ml @ 100 mls/hr Q6HRS 06/12/19 13:30 06/12/19 19:15 DC 06/12/19 13:48 100 MLS/HR Potassium Chloride/Water 100 ml @ 100 mls/hr Q1H 06/11/19 06:00 06/11/19 07:59 DC 06/11/19 08:41 100 MLS/HR Potassium Phosphate 13.6 mmol/Calcium Gluconate 20 meq/ Multivitamins 10 ml/Chromium/ Copper/Manganese/ Seleni/Zn 0.5 ml/ Insulin Human Regular 10 unit/ Total Parenteral Nutrition/Amino Acids/Dextrose/ Fat Emulsion Intravenous 1,920 ml @ 80 mls/hr TPN CONT 06/21/19 22:00 06/22/19 21:59 06/21/19 21:31 80 MLS/HR Potassium Phosphate 13.6 mmol/Magnesium Sulfate 10 meq/ Calcium Gluconate 20 meq/ Multivitamins 10 ml/Chromium/ Copper/Manganese/ Seleni/Zn 0.5 ml/ Total Parenteral Nutrition/Amino Acids/Dextrose/ Fat Emulsion Intravenous 1,920 ml @ 80 mls/hr TPN CONT 06/19/19 22:00 06/20/19 21:59 DC 06/19/19 21:31 80 MLS/HR Potassium Phosphate 13.6 mmol/Magnesium Sulfate 5 meq/ Calcium Gluconate 20 meq/ Multivitamins 10 ml/Chromium/ Copper/Manganese/ Seleni/Zn 0.5 ml/ Total Parenteral Nutrition/Amino Acids/Dextrose/ Fat Emulsion Intravenous 1,920 ml @ 80 mls/hr TPN CONT 06/22/19 22:00 06/23/19 21:59 Prochlorperazine Edisylate (Compazine) 10 mg PRN Q8HRS PRN 06/11/19 12:00 06/12/19 14:59 10 MG Propofol 20 ml @ As Directed STK-MED ONCE 06/22/19 11:42 06/22/19 11:43 DC Rocuronium [place] (Zemuron) 50 mg STK-MED ONCE 06/22/19 11:42 06/22/19 11:42 DC Sodium Bicarbonate 50 meq/Sodium Chloride 1,050 ml @ 150 mls/hr Q7H 06/12/19 11:00 06/13/19 14:48 DC 06/13/19 04:16 150 MLS/HR Sodium Bicarbonate (Sodium Bicarb Adult 8.4% Syr) 50 meq 1X ONCE 06/12/19 16:00 06/12/19 16:01 DC 06/12/19 16:12 50 MEQ Sodium Chloride 1,000 ml @ 400 mls/hr Q2H30M PRN 06/14/19 08:55 06/14/19 20:54 DC Succinylcholine Chloride (Anectine) 200 mg 1X ONCE 06/14/19 13:00 06/14/19 13:01 DC 2/29/20 12:59 200 MG Lab Laboratory Tests Test 06/21/19 14:18 06/21/19 17:07 06/21/19 19:50 06/21/19 23:29 Glucose (Fingerstick) 323 mg/dL (70-99) 315 mg/dL (70-99) 303 mg/dL (70-99) 306 mg/dL (70-99) Test 06/22/19 03:52 06/22/19 05:40 06/22/19 08:20 06/22/19 08:56 Glucose (Fingerstick) 320 mg/dL (70-99) 95 mg/dL (70-99) White Blood Count 18.0 x10^3/uL (4.0-11.0) Red Blood Count 3.34 x10^6/uL (4.30-5.70) Hemoglobin 9.6 g/dL (13.0-17.5) Hematocrit 30.2 % (39.0-53.0) Mean Corpuscular Volume 90 fL (79-100) Mean Corpuscular Hemoglobin 29 pg (25-35) Mean Corpuscular Hemoglobin Concent 32 g/dL (31-37) Red Cell Distribution Width 14.4 % (11.5-14.5) Platelet Count 286 x10^3/uL (140-400) Neutrophils (%) (Auto) 94 % (31-73) Lymphocytes (%) (Auto) 2 % (24-48) Monocytes (%) (Auto) 3 % (0-9) Eosinophils (%) (Auto) 0 % (0-3) Basophils (%) (Auto) 0 % (0-3) Neutrophils # (Auto) 17.0 x10^3/uL (1.8-7.7) Lymphocytes # (Auto) 0.4 x10^3/uL (1.0-4.8) Monocytes # (Auto) 0.6 x10^3/uL (0.0-1.1) Eosinophils # (Auto) 0.0 x10^3/uL (0.0-0.7) Basophils # (Auto) 0.0 x10^3/uL (0.0-0.2) Sodium Level 152 mmol/L (136-145) Potassium Level 4.8 mmol/L (3.5-5.1) Chloride Level 116 mmol/L (98-107) Carbon Dioxide Level 28 mmol/L (21-32) Anion Gap 8 (6-14) Blood Urea Nitrogen 33 mg/dL (8-26) Creatinine 1.4 mg/dL (0.7-1.3) Estimated GFR (Cockcroft-Gault) 65.2 Glucose Level 364 mg/dL (70-99) Calcium Level 8.1 mg/dL (8.5-10.1) Phosphorus Level 2.7 mg/dL (2.6-4.7) Magnesium Level 2.0 mg/dL (1.8-2.4) Lipase 219 U/L (73-393) O2 Saturation 98 % (92-99) Arterial Blood pH 7.41 (7.35-7.45) Arterial Blood pCO2 at Patient Temp 40 mmHg (35-46) Arterial Blood pO2 at Patient Temp 120 mmHg (75-108) Arterial Blood HCO3 24 mmol/L (21-28) Arterial Blood Base Excess 0 mmol/L (-3-3) FiO2 40 Results All relevant outside records, renal labs, imaging studies, telemetry/EKG's were reviewed. RANDALL GALVIN MD Jun 22, 2019 12:05
[2019-06-22] MEDS ORDERED: SURGICEL HEMOSTAT 4X8 EACH. TP ONE ×2 (12:46)
[2019-06-22] MEDS ORDERED: ROCURONIUM 100 MG/10 ML VIAL. ONE (13:05)
[2019-06-22] MEDS ORDERED: SURGICEL HEMOSTAT 4X8 EACH. ONE (13:14)
[2019-06-22] MEDS ORDERED: ALBUMIN HUMAN 5% 500 ML IV ONE (13:25)
[2019-06-22] MEDS ORDERED: SEVOFLURANE > 120 MINUTES. IH ONE (13:53)
[2019-06-22] MEDS: IV NORMAL SALINE 1000ML BAG 1,000 ML IV SCH (15:39)
[2019-06-22] MEDS ORDERED: MORPHINE SULFATE 2 MG/ML VIAL. IV PRN (15:45)
[2019-06-22] MEDS ORDERED: ONDANSETRON PF 4 MG/2 ML VIAL. IVP PRN (15:45)
[2019-06-22] MEDS ORDERED: 0.9 % SODIUM CHLORIDE 10 ML DISP.SYRIN. IV PRN (15:45)
--- NOTE | 2019-06-22 15:57 | RAD ---
Exam performed: One view chest and x-ray abdomen KUB. HISTORY: Postop evaluation. DATE OF SERVICE: 06/22/2019. COMPARISON: Single view chest from 06/21/2019 Findings and impression: Single view of the chest demonstrates interval placement of endotracheal tube by tracheostomy tube. The feeding tube has been removed. There is a right IJ line dialysis-type catheter. Cardiomegaly. Central vascular congestion and prominent bilateral perihilar interstitial opacities may be related to supine position. Supine view of the abdomen demonstrates nonspecific, nondistended bowel loops. No radiographic surgical instrument is seen projecting over the abdomen. There is a tube projecting in the midline left abdomen perhaps a drainage tube. Electronically signed by: Hermelinda Hernandez MD (06/22/2019 3:54 PM) [id number]
[2019-06-22] MEDS: IV RINGERS,LACTATED 1000ML 1,000 ML IV SCH (16:00)
--- NOTE | 2019-06-22 16:06 | PDOC4 ---
OPERATIVE NOTE Date: Date: Jun 22, 2019 Pre-Op Diagnosis: Severe necrotizing gallstone pancreatitis, increased abdominal pressure, respiratory failure Post-Op Diagnosis: same Procedure Performed: Exploratory laparotomy, pancreatic necrosectomy, cholecystostomy tube placement, Gastrostomy placement with jejunal extension, tracheostomy placement (specifically 8 shiley cuffed) Surgeon: Aaron Call Anesthesia Type: GETA Blood Loss: 200 Specimans Obtained: pancreatic necrosis, saponification, gallstones Findings: diffuse peritonitis, 1.5 liters of ascites, diffuse saponification, viable viscera, mulitiple gallstones, normal liver Complications: none Operative Note: After obtaining informed consent, patient was taken to OR, induced under GETA and prepped in the usual fashion. Midline incision was made with cautery. Minimal subcutaneous fat. Large amount of ascites evacuated. Ascites sent for cultures. Stomach distended but normal. Gastrotomy made with cautery. 20 F Gastrostomy tube introduced and pediatric extensive placed through jejunal aspect. Balloon inflated and secured to anterior abdominal wall with 3 0 vicryl. 2 0 nylon used to secure gastrostomy tube externally. Careful blunt dissection was used to mobilize small bowel, which was viable and not distended. Omentum with extensive saponification. Biopsy taken. Liver completely normal. Gallbladder distended, but normal color. Secondary to extensive inflammation, cholecystectomy was not technically feasible and high risk. Given this, cholecystostomy made and gallstones evacuated out. Gastrostomy tube placed to serve as cholecystostomy tube and secured with balloon and 2 0 nylon externally. 19 JOSE drain placed in this area and secured with 2 0 nylon. Peripancreatic areas approached via through avascular areas of transverse mesocolon. Some pancreatic material evacuated out bluntly. Left sided cosme drain placed into this area and secured externally with 2 0 nylon. Surgicel was placed in the area. Also approached this area via gastrocolic ligament into lesser sac. Right cosme drain placed in this area and secured with 2 0 nylon. Surgicel placed. Copious irrigation with no other pathology or bleeding noted. Given morbidity of open abdomen, evacuation of intraabdominal contents and patient's stable status, attempt at closing the abdomen was made. Fascia repaired with 0 looped PDS x 2. Multiple transfascial 1 PDS were used to act as retention sutures. This appeared to have been successful as the repair was wi thout significant tension, vital signs remained stable and peak airway pressures of 35. Skin repaired with 2 0 vicryl. Attention was then turned to tracheostomy. Patient reprepped and draped over anterior neck. Vertical incision made with cautery. Trachea identified. 2 0 prolene placed through 1 st tracheal ring and secured externally with steristrips. 2nd tracheal ring was entered with 15 blade scaple. 8 Shiley tracheostomy introduced and end tidal CO2 detected and patient was successfully oxygenated and ventilated. Tracheostomy secured with 3 0 nylon and collar. Patient tolerated procedure well and was sent to ICU in stable condition. All counts correct. Wound class is 4. Will remain in deep coma and paralysed given concern for intraabdominal pressures. KARLA CALL MD Jun 22, 2019 16:06
--- NOTE | 2019-06-22 16:09 | PDOC ---
Date and Time Uneventful intraoperative course. HR BP stable without pressors. Initial CVP was 10. Increased to 14 following 3L of LR and 500ml 5% albumin. SpO2 was >97% throughout. Urine output sluggish initially but improved with fluid. 1.5-1.7 L ascites removed. EBL was <200ml Dr Dawson has asked that patient be continued with dense skeletal muscle relaxation due to tension of abdominal wall. ICU was asked to maintain relaxation and sedation until discontinued by Dr Dawson. Vecuronium infusion following ICU protocol is to be used. I would recommend maintaining one twitch out of a train of four with a nerve stimulator. I ordered a repeat set of lytes and a CBC to see where we stand following fluid resuscitation. I would not be at all surprised to see Hb drop in to the 7's as a result. Current Medications Current Medications Morphine Sulfate (Morphine Sulfate) 4 mg PRN Q15MIN PRN IV/SQ PAIN GREATER THAN 3/10 Last administered on 06/11/19at 04:58; Start 06/11/19 at 04:30; Stop 06/11/19 at 16:47; Status DC Sodium Chloride 1,000 ml @ 1,000 mls/hr Q1H IV Last administered on 06/11/19at 04:34; Start 06/11/19 at 04:30; Stop 06/11/19 at 05:29; Status DC Ondansetron HCl (Zofran) 4 mg 1X ONCE IV Last administered on 06/11/19at 04:33; Start 06/11/19 at 04:30; Stop 06/11/19 at 04:33; Status DC Iohexol (Omnipaque 350 Mg/ml) 100 ml 1X ONCE IV Last administered on 06/11/19at 05:01; Start 06/11/19 at 04:45; Stop 06/11/19 at 04:46; Status DC Info (CONTRAST GIVEN -- Rx MONITORING) 1 each PRN DAILY PRN MC SEE COMMENTS; Start 06/11/19 at 04:45; Stop 06/13/19 at 04:44; Status DC Fentanyl Citrate (Fentanyl 2ml Vial) 100 mcg STK-MED ONCE .ROUTE ; Start 06/11/19 at 04:42; Stop 06/11/19 at 04:42; Status DC Fentanyl Citrate (Fentanyl 2ml Vial) 50 mcg 1X ONCE IVP Last administered on 06/11/19 04:45; Start 06/11/19 at 05:00; Stop 06/11/19 at 05:01; Status DC Ondansetron HCl (Zofran) 4 mg PRN Q8HRS PRN IV NAUSEA/VOMITING Last administered on 06/12/19 03:29; Start 06/11/19 at 05:45; Stop 06/12/19 at 05:44; Status DC Morphine Sulfate (Morphine Sulfate) 4 mg PRN Q2HR PRN IV PAIN Last administered on 06/11/19 07:37; Start 06/11/19 at 05:45; Stop 06/11/19 at 11:54; Status DC Sodium Chloride 1,000 ml @ 150 mls/hr Q6H40M IV Last administered on 06/12/19 03:28; Start 06/11/19 at 05:45; Stop 06/12/19 at 11:01; Status DC Hydromorphone HCl (Dilaudid) 0.5 mg PRN Q3HRS PRN IV PAIN Last administered on 06/11/19 08:38; Start 06/11/19 at 05:45; Stop 06/11/19 at 09:12; Status DC Potassium Chloride/Water 100 ml @ 100 mls/hr Q1H IV Last administered on 06/11/19 08:41; Start 06/11/19 at 06:00; Stop 06/11/19 at 07:59; Status DC Hydromorphone HCl (Dilaudid) 1 mg PRN Q3HRS PRN IV PAIN Last administered on 06/11/19 09:29; Start 06/11/19 at 09:15; Stop 06/11/19 at 11:54; Status DC Prochlorperazine Edisylate (Compazine) 10 mg PRN Q8HRS PRN IV NAUSEA/VOMITING Last administered on 06/12/19 14:59; Start 06/11/19 at 12:00 Hydromorphone HCl (Dilaudid) 1 mg PRN Q2HRS PRN IV PAIN Last administered on 06/21/19 14:36; Start 06/11/19 at 12:00 Pantoprazole Sodium (PROTONIX VIAL for IV PUSH) 40 mg DAILYAC IVP Last administered on 2/27/20at 08:29; Start 06/11/19 at 15:00; Stop 06/12/19 at 16:23; Status DC Lorazepam (Ativan Inj) 1 mg PRN Q6HRS PRN IVP ANXIETY / AGITATION Last administered on 06/14/19at 13:00; Start 06/11/19 at 18:15 Hydralazine HCl (Apresoline Inj) 10 mg PRN Q6HRS PRN IVP ELEVATED BP, SEE COMMENTS Last administered on 06/18/19at 09:32; Start 06/11/19 at 18:15; Stop 06/20 at 09:12; Status DC Nystatin (Nystop) 1 devorah PRN QID PRN TP FUNGAL RASH Last administered on 06/11/19at 23:19; Start 06/11/19 at 23:15 Sodium Chloride 1,000 ml @ 1,000 mls/hr 1X ONCE IV Last administered on 06/12/19at 05:27; Start 06/12/19 at 06:00; Stop 06/12/19 at 06:59; Status DC Sodium Chloride 1,000 ml @ 1,000 mls/hr 1X ONCE IV Last administered on 06/12/19at 05:25; Start 06/12/19 at 05:00; Stop 06/12/19 at 05:59; Status DC Sodium Chloride 1,000 ml @ 200 mls/hr Q5H IV Last administered on 06/12/19at 06:36; Start 06/12/19 at 07:00; Stop 06/12/19 at 11:01; Status DC Sodium Bicarbonate 50 meq/Sodium Chloride 1,050 ml @ 150 mls/hr Q7H IV Last administered on 06/13/19at 04:16; Start 06/12/19 at 11:00; Stop 06/13/19 at 14:48; Status DC Amino Acids/ Glycerin/ Electrolytes 1,000 ml @ 80 mls/hr [id number] IV ; Start 06/12/19 at 10:00; Status UNV Amino Acids/ Electrolytes/ Dextrose 1,000 ml @ 80 mls/hr [id number] IV ; Start 06/12/19 at 10:15; Stop 06/18/19 at 13:50; Status DC Piperacillin Sod/ Tazobactam Sod (Zosyn Per Pharmacy) 1 each PRN DAILY PRN MC SEE COMMENTS; Start 06/12/19 at 13:15; Stop 06/12/19 at 19:16; Status DC Piperacillin Sod/ Tazobactam Sod 2.25 gm/Sodium Chloride 50 ml @ 100 mls/hr Q6HRS IV Last administered on 06/12/19at 13:48; Start 06/12/19 at 13:30; Stop 06/12/19 at 19:15; Status DC Sodium Bicarbonate (Sodium Bicarb Adult 8.4% Syr) 50 meq 1X ONCE IV Last administered on 06/12/19at 16:12; Start 06/12/19 at 16:00; Stop 06/12/19 at 16:01; Status DC Calcium Gluconate 1000 mg/Sodium Chloride 110 ml @ 220 mls/hr 1X ONCE IV Last administered on 06/12/19at 16:13; Start 06/12/19 at 16:00; Stop 06/12/19 at 16:29 ; Status DC Dextrose (Dextrose 50%-Water Syringe) 25 gm 1X ONCE IV Last administered on 06/12/19at 16:13; Start 06/12/19 at 16:00; Stop 06/12/19 at 16:01; Status DC Insulin Human Regular (HumuLIN R VIAL) 10 unit 1X ONCE IV Last administered on 06/12/19at 16:14; Start 06/12/19 at 16:00; Stop 06/12/19 at 16:01; Status DC Furosemide (Lasix) 40 mg 1X ONCE IVP Last administered on 06/12/19at 16:13; Start 06/12/19 at 16:00; Stop 06/12/19 at 16:01; Status DC Pantoprazole Sodium (PROTONIX VIAL for IV PUSH) 40 mg [id number] IVP Last administered on 06/13/19at 06:21; Start 06/12/19 at 18:00; Stop 06/13/19 at 18:49; Status DC Meropenem 500 mg/ Sodium Chloride 50 ml @ 100 mls/hr Q12HR IV Last administered on 06/17/19at 20:59; Start 06/12/19 at 21:00; Stop 06/18/19 at 07:26; Status DC Calcium Gluconate 1000 mg/Sodium Chloride 110 ml @ 220 mls/hr 1X ONCE IV Last administered on 06/12/19at 20:35; Start 06/12/19 at 19:15; Stop 06/12/19 at 19:44; Status DC Lidocaine HCl (Buffered Lidocaine 1%) 3 ml STK-MED ONCE .ROUTE ; Start 06/13/19 at 08:47; Stop 06/13/19 at 08:47; Status DC Lidocaine HCl (Buffered Lidocaine 1%) 6 ml 1X ONCE INJ Last administered on 06/13/19at 09:23; Start 06/13/19 at 09:30; Stop 06/13/19 at 09:31; Status DC Insulin Human Lispro (HumaLOG) 0-7 UNITS TIDWMEALS SQ Last administered on 06/13/19at 12:14; Start 06/13/19 at 12:00; Stop 06/14/19 at 23:29; Status DC Dextrose (Dextrose 50%-Water Syringe) 12.5 gm PRN Q15MIN PRN IV SEE COMMENTS; Start 06/13/19 at 11:15; Stop 06/14/19 at 23:29; Status DC Insulin Human Regular 100 unit/ Sodium Chloride 101 ml @ 0 mls/hr CONT PRN IV SEE I/O RECORD Last administered on 06/13/19at 15:03; Start 06/13/19 at 14:15; Stop 06/21/19 at 12:37; Status DC Sodium Chloride 1,000 ml @ 1,000 mls/hr Q1H PRN IV hypotension; Start 06/13/19 at 14:00; Stop 06/13/19 at 19:59; Status DC Sodium Chloride 1,000 ml @ 400 mls/hr Q2H30M PRN IV PATENCY; Start 06/13/19 at 14:00; Stop 06/14/19 at 01:59; Status DC Info (PHARMACY MONITORING -- do not chart) 1 each PRN DAILY PRN MC SEE MO TS; Start 06/13/19 at 14:45; Stop 06/13/19 at 14:51; Status DC Info (PHARMACY MONITORING -- do not chart) 1 each PRN DAILY PRN MC SEE COMMENTS; Start 06/13/19 at 14:45 Pantoprazole Sodium (PROTONIX VIAL for IV PUSH) 40 mg [id number] IVP Last administered on 06/22/19at 05:39; Start 06/13/19 at 21:00 Dexmedetomidine HCl 400 mcg/ Sodium Chloride 100 ml @ 0 mls/hr CONT PRN IV PER PROTOCOL Last administered on 06/21/19at 05:52; Start 06/13/19 at 19:00; Stop 06/21/19 at 19:39; Status DC Sodium Chloride 500 ml @ 500 mls/hr 1X PRN PRN IV SEE COMMENTS; Start 06/13/19 at 19:00 Atropine Sulfate (ATROPINE 0.5mg SYRINGE) 0.5 mg PRN Q5MIN PRN IV SEE COMMENTS; Start 06/13/19 at 19:00 Sodium Chloride 1,000 ml @ 1,000 mls/hr Q1H PRN IV hypotension; Start 06/14/19 at 08:55; Stop 06/14/19 at 14:54; Status DC Albumin Human 200 ml @ 200 mls/hr 1X PRN PRN IV Hypotension Last administered on 06/14/19at 09:40; Start 06/14/19 at 09:00; Stop 06/14/19 at 14:59; Status DC Sodium Chloride 1,000 ml @ 400 mls/hr Q2H30M PRN IV PATENCY; Start 06/14/19 at 08:55; Stop 06/14/19 at 20:54; Status DC Info (PHARMACY MONITORING -- do not chart) 1 each PRN DAILY PRN MC SEE COMMENTS; Start 06/14/19 at 09:00; Stop 06/14/19 at 09:06; Status DC Info (PHARMACY MONITORING -- do not chart) 1 each PRN DAILY PRN MC SEE COMMENTS; Start 06/14/19 at 09:00; Stop 06/14/19 at 09:06; Status DC Calcium Chloride 2000 mg/Sodium Chloride 120 ml @ 240 mls/hr PRN QID PRN IV for CALCIUM < 5.8 Last administered on 06/15/19at 08:32; Start 06/14/19 at 10:15; Stop 06/15/19 at 09:58; Status DC Magnesium Sulfate 50 ml @ 25 mls/hr PRN DAILY PRN IV for Mag < 1.7 on am labs; Start 06/14/19 at 10:30 Norepinephrine Bitartrate 8 mg/ Dextrose 258 ml @ 20.027 mls/ hr CONT PRN IV PER PROTOCOL Last administered on 06/14/19at 10:31; Start 06/14/19 at 10:30 Succinylcholine Chloride (Anectine) 200 mg STK-MED ONCE .ROUTE ; Start 06/14/19 at 12:22; Stop 06/14/19 at 12:23; Status DC Etomidate (Amidate) 20 mg STK-MED ONCE IV ; Start 06/14/19 at 12:22; Stop 06/14/19 at 12:23; Status DC Fentanyl Citrate 30 ml @ 0 mls/hr CONT PRN IV SEE PROTOCOL Last administered on 06/19/19at 08:10; Start 06/14/19 at 12:45; Stop 06/19/19 at 11:00; Status DC Chlorhexidine Gluconate (Peridex) 15 ml BID MM Last administered on 06/21/19at 20:39; Start 06/14/19 at 21:00 Midazolam HCl 50 mg/Sodium Chloride 50 ml @ 0 mls/hr CONT PRN IV SEE PROTOCOL Last administered on 06/22/19at 11:11; Start 06/14/19 at 12:45 Midazolam HCl (Versed) 5 mg STK-MED ONCE .ROUTE ; Start 06/14/19 at 12:48; Stop 06/14/19 at 12:48; Status DC Fentanyl Citrate (Fentanyl 2ml Vial) 100 mcg STK-MED ONCE .ROUTE ; Start 06/14/19 at 12:48; Stop 06/14/19 at 12:48; Status DC Midazolam HCl (Versed) 5 mg 1X ONCE IV Last administered on 06/14/19at 12:59; Start 06/14/19 at 13:00; Stop 06/14/19 at 13:01; Status DC Fentanyl Citrate (Fentanyl 2ml Vial) 100 mcg 1X ONCE IM Last administered on 06/14/19at 12:58; Start 06/14/19 at 13:00; Stop 06/14/19 at 13:01; Status DC Succinylcholine Chloride (Anectine) 200 mg 1X ONCE IV Last administered on 06/14/19at 12:59; Start 06/14/19 at 13:00; Stop 06/14/19 at 13:01; Status DC Etomidate (Amidate) 14 mg 1X ONCE IV Last administered on 06/14/19at 12:59; Start 06/14/19 at 13:00; Stop 06/14/19 at 13:01; Status DC Acetaminophen (Tylenol Supp) 650 mg PRN Q6HRS PRN NC MILD PAIN / TEMP Last administered on 06/21/19at 19:39; Start 06/14/19 at 20:00 Linezolid/Dextrose 300 ml @ 300 mls/hr Q12HR IV Last administered on 06/22/19at 11:10; Start 06/14/19 at 21:00 Insulin Human Lispro (HumaLOG) 0-7 UNITS TIDWMEALS SQ ; Start 06/15/19 at 08:00; Stop 06/15/19 at 00:03; Status DC Dextrose (Dextrose 50%-Water Syringe) 12.5 gm PRN Q15MIN PRN IV SEE COMMENTS; Start 06/14/19 at 23:30 Insulin Human Lispro (HumaLOG) 0-7 UNITS Q4HRS SQ Last administered on 06/22/19at 04:00; Start 06/15/19 at 00:15 Calcium Gluconate 11250 mg/Sodium Chloride 494 ml @ 4.051 mls/ hr CONT PRN IV SYMPTOMATIC HYPOCALCEMIA; Start 06/15/19 at 09:30; Stop 06/15/19 at 09:23; Status DC Calcium Gluconate 5000 mg/Sodium Chloride 260 ml @ 5.543 mls/ hr CONT PRN IV SYMPTOMATIC HYPOCALCEMIA; Start 06/15/19 at 09:30; Stop 06/15/19 at 09:26; Status DC Calcium Gluconate 5000 mg/Sodium Chloride 260 ml @ 5.543 mls/ hr CONT PRN IV SYMPTOMATIC HYPOCALCEMIA; Start 06/15/19 at 09:30; Stop 06/15/19 at 09:29; Status DC Calcium Gluconate 5000 mg/Sodium Chloride 250 ml @ 28.782 mls/ hr CONT PRN IV SYMPTOMATIC HYPOCALCEMIA Last administered on 06/18/19at 06:12; Start 06/15/19 at 09:30; Stop 06/18/19 at 13:50; Status DC Lidocaine HCl (Lidocaine Pf 2% Vial) 5 ml STK-MED ONCE .ROUTE ; Start 06/14/19 at 12:00; Stop 06/17/19 at 10:37; Status DC Meropenem 500 mg/ Sodium Chloride 50 ml @ 100 mls/hr Q6HRS IV Last administe red on 06/22/19at 11:37; Start 06/18/19 at 07:30 Nicardipine HCl 50 mg/Sodium Chloride 250 ml @ 25 mls/hr CONT PRN IV SEE I/O RECORD; Start 06/18/19 at 11:45 Metoprolol Tartrate (Lopressor Vial) 5 mg 1X ONCE IVP ; Start 06/18/19 at 12:15; Stop 06/18/19 at 12:16; Status DC Fentanyl Citrate (Fentanyl 600 Mcg/30 ml FILM PAINTER) 600 mcg STK-MED ONCE IV ; Start 06/15/19 at 05:30; Stop 06/18/19 at 12:07; Status DC Enoxaparin Sodium (Lovenox 40mg Syringe) 40 mg Q24H SQ Last administered on 06/21/19at 23:02; Start 06/18/19 at 22:30; Stop 06/22/19 at 11:07; Status DC Fentanyl Citrate 55 ml @ 1.98 mls/hr CONT PRN IV SEE PROTOCOL; Start 06/19/19 at 08:15; Status Cancel Info (Tpn Per Pharmacy) 1 each PRN DAILY PRN MC SEE COMMENTS Last administered on 06/22/19at 11:53; Start 06/19/19 at 11:15 Hydralazine HCl (Apresoline Inj) 10 mg PRN Q4HRS PRN IVP ELEVATED BP, 1st choice; Start 06/19/19 at 11:45 Labetalol HCl (Normodyne Iv Push) 20 mg PRN Q2HR PRN IVP HYPERTENSION, 2nd choice Last administered on 06/22/19at 06:31; Start 06/19/19 at 11:45 Potassium Phosphate 13.6 mmol/Magnesium Sulfate 10 meq/ Calcium Gluconate 20 meq/ Multivitamins 10 ml/Chromium/ Copper/Manganese/ Seleni/Zn 0.5 ml/ Total Parenteral Nutrition/Amino Acids/Dextrose/ Fat Emulsion Intravenous 1,920 ml @ 80 mls/hr TPN CONT IV Last administered on 06/19/19at 21:31; Start 06/19/19 at 22:00; Stop 06/20/19 at 21:59; Status DC Fentanyl Citrate 30 ml @ 0 mls/hr CONT PRN IV SEE PROTOCOL Last administered on 06/22/19at 06:35; Start 06/19/19 at 18:00 Micafungin Sodium 100 mg/Dextrose 100 ml @ 100 mls/hr Q24H IV Last administered on 06/22/19at 11:11; Start 06/20/19 at 09:00 Potassium Phosphate 13.6 mmol/Calcium Gluconate 20 meq/ Multivitamins 10 ml/Chromium/ Copper/Manganese/ Seleni/Zn 0.5 ml/ Insulin Human Regular 10 unit/ Total Parenteral Nutrition/Amino Acids/Dextrose/ Fat Emulsion Intravenous 1,920 ml @ 80 mls/hr TPN CONT IV Last administered on 06/20/19at 21:57; Start 06/20/19 at 22:00; Stop 06/21/19 at 21:59; Status DC Insulin Glargine (Lantus Syringe) 15 unit QHS SQ Last administered on 06/20/19at 20:46; Start 06/20/19 at 21:00; Stop 06/21/19 at 12:32; Status DC Insulin Glargine (Lantus Syringe) 20 unit QHS SQ Last administered on 06/21/19at 20:40; Start 06/21/19 at 21:00 Potassium Phosphate 13.6 mmol/Calcium Gluconate 20 meq/ Multivitamins 10 ml/Chromium/ Copper/Manganese/ Seleni/Zn 0.5 ml/ Insulin Human Regular 10 unit/ Total Parenteral Nutrition/Amino Acids/Dextrose/ Fat Emulsion Intravenous 1,920 ml @ 80 mls/hr TPN CONT IV Last administered on 06/21/19at 21:31; Start 06/21/19 at 22:00; Stop 06/22/19 at 21:59 Dextrose 1,000 ml @ 75 mls/hr [id number] IV ; Start 06/22/19 at 07:00 Albuterol Sulfate (Ventolin Neb Soln) 2.5 mg RTQID NEB Last administered on 06/22/19at 11:31; Start 06/22/19 at 08:00 Iohexol (Omnipaque 240 Mg/ml) 30 ml 1X ONCE PO ; Start 06/22/19 at 08:00; Stop 06/22/19 at 08:05; Status DC Iohexol (Omnipaque 300 Mg/ml) 75 ml 1X ONCE IV ; Start 06/22/19 at 08:00; Stop 06/22/19 at 08:01; Status Cancel Info (CONTRAST GIVEN -- Rx MONITORING) 1 each PRN DAILY PRN MC SEE COMMENTS; Start 06/22/19 at 08:15; Stop 06/24/19 at 08:14 Cefoxitin Sodium (Mefoxin) 2 gm 1X PREOP IVP ; Start 06/22/19 at 11:00; Stop 06/22/19 at 11:16; Status DC Cefoxitin Sodium (Mefoxin) 2 gm 1X PREOP ONCE IVP Last administered on 06/22/19at 11:37; Start 06/22/19 at 11:30; Stop 06/22/19 at 11:31; Status DC Rocuronium [place] (Zemuron) 50 mg STK-MED ONCE .ROUTE ; Start 06/22/19 at 11:42; Stop 06/22/19 at 11:42; Status DC Propofol 20 ml @ As Directed STK-MED ONCE IV ; Start 06/22/19 at 11:42; Stop 06/22/19 at 11:43; Status DC Dexamethasone Sodium Phosphate (Decadron) 4 mg STK-MED ONCE .ROUTE ; Start 06/22/19 at 11:45; Stop 06/22/19 at 11:45; Status DC Ondansetron HCl (Zofran) 4 mg STK-MED ONCE .ROUTE ; Start 06/22/19 at 11:45; Stop 06/22/19 at 11:45; Status DC Potassium Phosphate 13.6 mmol/Magnesium Sulfate 5 meq/ Calcium Gluconate 20 meq/ Multivitamins 10 ml/Chromium/ Copper/Manganese/ Seleni/Zn 0.5 ml/ Total Parenteral Nutrition/Amino Acids/Dextrose/ Fat Emulsion Intravenous 1,920 ml @ 80 mls/hr TPN CONT IV ; Start 06/22/19 at 22:00; Stop 06/23/19 at 21:59 Rocuronium [place] (Zemuron) 100 mg STK-MED ONCE .ROUTE ; Start 06/22/19 at 13:05; Stop 06/22/19 at 13:06; Status DC Cellulose (Surgicel Hemostat 4x8) 1 each STK-MED ONCE .ROUTE Last administered on 06/22/19at 12:46; Start 06/22/19 at 13:14; Stop 06/22/19 at 13:14; Status DC Albumin Human 500 ml @ As Directed STK-MED ONCE IV ; Start 06/22/19 at 13:25; Stop 06/22/19 at 13:25; Status DC Sevoflurane (Ultane) 90 ml STK-MED ONCE IH ; Start 06/22/19 at 13:53; Stop 06/22/19 at 13:53; Status DC Cellulose (Surgicel Hemostat 4x8) 1 each STK-MED ONCE TP Last administered on 06/22/19at 12:46; Start 06/22/19 at 12:46; Stop 06/22/19 at 14:25; Status DC Cellulose (Surgicel Hemostat 4x8) 1 each STK-MED ONCE TP Last administered on 06/22/19at 12:46; Start 06/22/19 at 12:46; Stop 06/22/19 at 14:25; Status DC Rocuronium [place] (Zemuron) 50 mg STK-MED ONCE .ROUTE ; Start 06/22/19 at 14:52; Stop 06/22/19 at 14:52; Status DC Vecuronium [place]send 50 mg/ Miscellaneous 50 ml @ 4.925 mls/ hr CONT PRN IV SEE PROTOCOL; Start 06/22/19 at 15:00 Enoxaparin Sodium (Lovenox 40mg Syringe) 40 mg Q24H SQ ; Start 06/22/19 at 15:45; Status UNV Sodium Chloride (Normal Saline Flush) 3 ml QSHIFT PRN IV AFTER MEDS AND BLOOD DRAWS; Start 06/22/19 at 15:45; Status UNV Ringer's Solution 1,000 ml @ 100 mls/hr Q10H IV ; Start 06/22/19 at 15:39; Status UNV Naloxone HCl (Narcan) 0.4 mg PRN Q2MIN PRN IV SEE INSTRUCTIONS; Start 06/22/19 at 15:45; Status UNV Sodium Chloride 1,000 ml @ 25 mls/hr Q24H IV ; Start 06/22/19 at 15:39; Status UNV Morphine Sulfate (Morphine Sulfate) 1 mg PRN Q1HR PRN IV PAIN; Start 06/22/19 at 15:45; Status UNV Ondansetron HCl (Zofran) 4 mg PRN Q6HRS PRN IVP NAUESA, 1ST CHOICE; Start 06/22/19 at 15:45; Status UNV Active Scripts Active Pertinent Labs/Test Laboratory Tests Test 06/20/19 20:01 06/21/19 00:07 3/7/20 04:06 06/21/19 05:35 Glucose (Fingerstick) 286 mg/dL (70-99) 297 mg/dL (70-99) 254 mg/dL (70-99) White Blood Count 16.1 x10^3/uL (4.0-11.0) Red Blood Count 3.24 x10^6/uL (4.30-5.70) Hemoglobin 9.4 g/dL (13.0-17.5) Hematocrit 29.2 % (39.0-53.0) Mean Corpuscular Volume 90 fL (79-100) Mean Corpuscular Hemoglobin 29 pg (25-35) Mean Corpuscular Hemoglobin Concent 32 g/dL (31-37) Red Cell Distribution Width 14.6 % (11.5-14.5) Platelet Count 271 x10^3/uL (140-400) Neutrophils (%) (Auto) 91 % (31-73) Lymphocytes (%) (Auto) 5 % (24-48) Monocytes (%) (Auto) 3 % (0-9) Eosinophils (%) (Auto) 0 % (0-3) Basophils (%) (Auto) 0 % (0-3) Neutrophils # (Auto) 14.6 x10^3/uL (1.8-7.7) Lymphocytes # (Auto) 0.8 x10^3/uL (1.0-4.8) Monocytes # (Auto) 0.5 x10^3/uL (0.0-1.1) Eosinophils # (Auto) 0.1 x10^3/uL (0.0-0.7) Basophils # (Auto) 0.0 x10^3/uL (0.0-0.2) Segmented Neutrophils % 71 % (35-66) Band Neutrophils % 22 % (0-9) Lymphocytes % 3 % (24-48) Atypical Lymphocytes % (Manual) 2 % (0-0) Myelocytes % 2 % (0-0) Toxic Granulation Present Toxic Vacuolation Present Platelet Estimate Adequate (ADEQUATE) Large Platelets Few Sodium Level 157 mmol/L (136-145) Potassium Level 4.6 mmol/L (3.5-5.1) Chloride Level 120 mmol/L (98-107) Carbon Dioxide Level 30 mmol/L (21-32) Anion Gap 7 (6-14) Blood Urea Nitrogen 37 mg/dL (8-26) Creatinine 1.5 mg/dL (0.7-1.3) Estimated GFR (Cockcroft-Gault) 60.2 Glucose Level 278 mg/dL (70-99) Calcium Level 8.0 mg/dL (8.5-10.1) Phosphorus Level 2.8 mg/dL (2.6-4.7) Magnesium Level 2.4 mg/dL (1.8-2.4) Albumin 1.6 g/dL (3.4-5.0) Test 06/21/19 08:15 06/21/19 09:23 06/21/19 14:18 06/21/19 17:07 O2 Saturation 98 % (92-99) Arterial Blood pH 7.43 (7.35-7.45) Arterial Blood pCO2 at Patient Temp 38 mmHg (35-46) Arterial Blood pO2 at Patient Temp 114 mmHg (75-108) Arterial Blood HCO3 25 mmol/L (21-28) Arterial Blood Base Excess 1 mmol/L (-3-3) FiO2 40 Glucose (Fingerstick) 255 mg/dL (70-99) 323 mg/dL (70-99) 315 mg/dL (70-99) Test 06/21/19 19:50 06/21/19 23:29 06/22/19 03:52 06/22/19 05:40 Glucose (Fingerstick) 303 mg/dL (70-99) 306 mg/dL (70-99) 320 mg/dL (70-99) White Blood Count 18.0 x10^3/uL (4.0-11.0) Red Blood Count 3.34 x10^6/uL (4.30-5.70) Hemoglobin 9.6 g/dL (13.0-17.5) Hematocrit 30.2 % (39.0-53.0) Mean Corpuscular Volume 90 fL (79-100) Mean Corpuscular Hemoglobin 29 pg (25-35) Mean Corpuscular Hemoglobin Concent 32 g/dL (31-37) Red Cell Distribution Width 14.4 % (11.5-14.5) Platelet Count 286 x10^3/uL (140-400) Neutrophils (%) (Auto) 94 % (31-73) Lymphocytes (%) (Auto) 2 % (24-48) Monocytes (%) (Auto) 3 % (0-9) Eosinophils (%) (Auto) 0 % (0-3) Basophils (%) (Auto) 0 % (0-3) Neutrophils # (Auto) 17.0 x10^3/uL (1.8-7.7) Lymphocytes # (Auto) 0.4 x10^3/uL (1.0-4.8) Monocytes # (Auto) 0.6 x10^3/uL (0.0-1.1) Eosinophils # (Auto) 0.0 x10^3/uL (0.0-0.7) Basophils # (Auto) 0.0 x10^3/uL (0.0-0.2) Sodium Level 152 mmol/L (136-145) Potassium Level 4.8 mmol/L (3.5-5.1) Chloride Level 116 mmol/L (98-107) Carbon Dioxide Level 28 mmol/L (21-32) Anion Gap 8 (6-14) Blood Urea Nitrogen 33 mg/dL (8-26) Creatinine 1.4 mg/dL (0.7-1.3) Estimated GFR (Cockcroft-Gault) 65.2 Glucose Level 364 mg/dL (70-99) Calcium Level 8.1 mg/dL (8.5-10.1) Phosphorus Level 2.7 mg/dL (2.6-4.7) Magnesium Level 2.0 mg/dL (1.8-2.4) Lipase 219 U/L (73-393) Test 06/22/19 08:20 06/22/19 08:56 O2 Saturation 98 % (92-99) Arterial Blood pH 7.41 (7.35-7.45) Arterial Blood pCO2 at Patient Temp 40 mmHg (35-46) Arterial Blood pO2 at Patient Temp 120 mmHg (75-108) Arterial Blood HCO3 24 mmol/L (21-28) Arterial Blood Base Excess 0 mmol/L (-3-3) FiO2 40 Glucose (Fingerstick) 95 mg/dL (70-99) Laboratory Tests Test 06/21/19 17:07 06/21/19 19:50 06/21/19 23:29 06/22/19 03:52 Glucose (Fingerstick) 315 mg/dL (70-99) 303 mg/dL (70-99) 306 mg/dL (70-99) 320 mg/dL (70-99) Test 06/22/19 05:40 06/22/19 08:20 06/22/19 08:56 White Blood Count 18.0 x10^3/uL (4.0-11.0) Red Blood Count 3.34 x10^6/uL (4.30-5.70) Hemoglobin 9.6 g/dL (13.0-17.5) Hematocrit 30.2 % (39.0-53.0) Mean Corpuscular Volume 90 fL (79-100) Mean Corpuscular Hemoglobin 29 pg (25-35) Mean Corpuscular Hemoglobin Concent 32 g/dL (31-37) Red Cell Distribution Width 14.4 % (11.5-14.5) Platelet Count 286 x10^3/uL (140-400) Neutrophils (%) (Auto) 94 % (31-73) Lymphocytes (%) (Auto) 2 % (24-48) Monocytes (%) (Auto) 3 % (0-9) Eosinophils (%) (Auto) 0 % (0-3) Basophils (%) (Auto) 0 % (0-3) Neutrophils # (Auto) 17.0 x10^3/uL (1.8-7.7) Lymphocytes # (Auto) 0.4 x10^3/uL (1.0-4.8) Monocytes # (Auto) 0.6 x10^3/uL (0.0-1.1) Eosinophils # (Auto) 0.0 x10^3/uL (0.0-0.7) Basophils # (Auto) 0.0 x10^3/uL (0.0-0.2) Sodium Level 152 mmol/L (136-145) Potassium Level 4.8 mmol/L (3.5-5.1) Chloride Level 116 mmol/L (98-107) Carbon Dioxide Level 28 mmol/L (21-32) Anion Gap 8 (6-14) Blood Urea Nitrogen 33 mg/dL (8-26) Creatinine 1.4 mg/dL (0.7-1.3) Estimated GFR (Cockcroft-Gault) 65.2 Glucose Level 364 mg/dL (70-99) Calcium Level 8.1 mg/dL (8.5-10.1) Phosphorus Level 2.7 mg/dL (2.6-4.7) Magnesium Level 2.0 mg/dL (1.8-2.4) Lipase 219 U/L (73-393) O2 Saturation 98 % (92-99) Arterial Blood pH 7.41 (7.35-7.45) Arterial Blood pCO2 at Patient Temp 40 mmHg (35-46) Arterial Blood pO2 at Patient Temp 120 mmHg (75-108) Arterial Blood HCO3 24 mmol/L (21-28) Arterial Blood Base Excess 0 mmol/L (-3-3) FiO2 40 Glucose (Fingerstick) 95 mg/dL (70-99) LAST VITALS Vital Signs Date Time Temp Pulse Resp B/P (MAP) Pulse Ox O2 Delivery O2 Flow Rate FiO2 06/22/19 12:30 18 100 Ventilator 06/22/19 12:00 98.6 106 98.6 06/21/19 14:55 3.0 NACHO NAJERA MD Jun 22, 2019 16:09
[2019-06-22 17:01] LABS: BASO # 0.1 x10^3/uL (0.0-0.2); BASO % 1 % (0-3); EOS % 0 % (0-3); HEMOGLOBIN 9.8 g/dL (13.0-17.5); LYMPH # 0.4 x10^3/uL (1.0-4.8); LYMPH % 2 % (24-48); MEAN CORPUSCULAR HEMOGLOBIN 29 pg (25-35); MEAN CORPUSCULAR HGB CONC 32 g/dL (31-37); MEAN CORPUSCULAR VOLUME 91 fL (79-100); MONO # 0.7 x10^3/uL (0.0-1.1); MONO % 4 % (0-9); NEUT # 18.1 x10^3/uL (1.8-7.7); NEUT % 94 % (31-73); PLATELET COUNT 285 x10^3/uL (140-400); RED BLOOD COUNT 3.41 x10^6/uL (4.30-5.70); RED CELL DISTRIBUTION WIDTH 14.8 % (11.5-14.5); WHITE BLOOD COUNT 19.3 x10^3/uL (4.0-11.0)
[2019-06-22 17:10] LABS: CALCIUM 7.4 mg/dL (8.5-10.1); CREATININE 1.5 mg/dL (0.7-1.3); GFR 60.2; POTASSIUM 5.7 mmol/L (3.5-5.1)
[2019-06-22 17:26] LABS: % BANDS 18 % (0-9); % LYMPHS 5 % (24-48); % MONOS 1 % (0-10); % SEGS 76 % (35-66); ANISOCYTOSIS SLIGHT; HYPOCHROMIA SLIGHT; PLT ESTIMATE ADEQUATE (ADEQUATE); POLYCHROMASIA SLIGHT; TOXIC GRANULATION MOD
[2019-06-22] MEDS ORDERED: SODIUM BICARB ADULT 8.4% 50 MEQ/50 ML DISP.SYRIN. IV ONE (19:45)
[2019-06-22] MEDS ORDERED: DEXTROSE 50% 25 GM / 50ML DISP.SYRIN. IV ONE (19:45)
[2019-06-22] MEDS ORDERED: CALCIUM GLUCONATE 1,000 MG/10 ML VIAL. IVP ONE (19:45)
[2019-06-22] MEDS ORDERED: INSULIN REGULAR 100 UNIT/ML 3ML VIAL. IV ONE (19:45)
[2019-06-22 19:59] LABS: BASE EXCESS ABG 0 mmol/L (-3-3); HCO3 ABG 23 mmol/L (21-28); PCO2 ABG 35 mmHg (35-46); PO2 ABG 132 mmHg (75-108); SAT O2 ABG 98 % (92-99)
[2019-06-22 20:01] LABS: FIO2 ABG 40
[2019-06-22] MEDS ORDERED: CALCIUM GLUCONATE 1,000 MG in IV NORMAL SALINE 100ML 100 ML IV ONE (20:15)
--- NOTE | 2019-06-22 20:21 | NUR ---
to and from CT this am w results noted per Dr Dawson/communication w Dr Salinas,. Call to with plans,risks, benefits of needed surgery explained.Permits signed /charted. Family at bedside w further communication w Dr Dawson then. Unsuccessful attempt per anesthesia for a-line placement. Transported to OR per anesthesia and OR staff. Family to ICU waiting room
--- NOTE | 2019-06-22 20:28 | NUR ---
1600 Returned from OR. Recovered per LITIGATION SPECIALIST at bedside. Multiple lines connected,as well as drains . Each drain explained by Dr Dawson /labeled by RN/ diagram of surgical sites /drains placed at [facility] as reference. Multiple family members in 2-3/at a time. Peripheral nerve stimulator placed right ulnar area. Need for Vec delayed till 'thumb twitch' x2 obtained. IAP [address] at [address] Dawson with patient update. No new orders
--- NOTE | 2019-06-22 20:30 | NUR ---
Received report from day shift RN, all drains assessed by both RNs. Train of four completed with result of 2, Vec currently running at 0.8MCG. Art incorrectly reading at time of shift change. fagot maker assisted with troubleshooting [place] and began accurately reading again, good wave form achieved, blood return, and flushes easily. Patient temperature 100.9F, HR 125-cooling blanket restarted, labetalol given. Labs drawn after surgery showed elevated potassium of 5.7. This RN called Dr. Dawson with this, who decided to defer to renal-while on phone Dr. Dawson was notified of low grade temp and elevated HR- he agreed with measures being taken. Dr. Dawson also gave okay to restart TPN tonight. Afterwards, this RN called Dr. Sanches with elevated potassium, orders received to give calcium gluconate, sodium bicarb, D50, and 10 units regular insulin. Orders completed. at bedside, questions answered.
[2019-06-22] MEDS: INSULIN GLARGINE SYRINGE. SQ SCH (20:44)
[2019-06-22] MEDS ORDERED: DEXTROSE 70% IV SCH ×8 (22:00)
[2019-06-22] MEDS ORDERED: TOTAL PARENTERAL NUTRITION IV SCH ×8 (22:00)
[2019-06-22] MEDS ORDERED: AMINO ACID IV SCH ×8 (22:00)
[2019-06-22] MEDS ORDERED: [UNRECOGNIZED DRUG - OTHER] IV SCH ×8 (22:00)
[2019-06-22] MEDS: hydrALAZINE 20 MG/ML VIAL. IVP PRN (22:07)
[2019-06-23] VITALS (24 sets, daily range): BP systolic 96–166; BP diastolic 50–91
[2019-06-23] MEDS: IV RINGERS,LACTATED 1000ML 1,000 ML IV SCH ×3 (02:09→22:06)
--- NOTE | 2019-06-23 02:10 | NUR ---
At 2300, temp down to 99.3, cooling blanket turned off. Patient's temperature continued to drop after this, reaching 97.5 at 0030- two warm blankets applied. Temp continued to drop reaching 96.8 at 0100, lety hugger applied. 0100 train of four check was 0. Vec drip placed on hold. Train of four check at 0200 was 1, vec still on hold at this time. HR, BP, O2 sat remain stable.
[2019-06-23] MEDS: LABETALOL 20 MG/4 ML DISP.SYRIN. IVP PRN (03:49)
[2019-06-23] MEDS: INSULIN LISPRO 300 UNITS/3 ML VIAL. SQ SCH ×5 (03:51→20:00)
[2019-06-23 05:33] LABS: BASO % 0 % (0-3); EOS % 0 % (0-3); HEMATOCRIT 28.3 % (39.0-53.0); HEMOGLOBIN 9.1 g/dL (13.0-17.5); LYMPH # 0.5 x10^3/uL (1.0-4.8); LYMPH % 3 % (24-48); MEAN CORPUSCULAR HEMOGLOBIN 29 pg (25-35); MEAN CORPUSCULAR HGB CONC 32 g/dL (31-37); MEAN CORPUSCULAR VOLUME 91 fL (79-100); MONO # 0.8 x10^3/uL (0.0-1.1); MONO % 4 % (0-9); NEUT # 17.7 x10^3/uL (1.8-7.7); NEUT % 93 % (31-73); PLATELET COUNT 261 x10^3/uL (140-400); RED BLOOD COUNT 3.13 x10^6/uL (4.30-5.70); RED CELL DISTRIBUTION WIDTH 14.7 % (11.5-14.5); WHITE BLOOD COUNT 19.1 x10^3/uL (4.0-11.0)
[2019-06-23] MEDS: MEROPENEM 500 MG in IV NORMAL SALINE 50ML 50 ML IV SCH ×3 (05:33→17:50)
[2019-06-23] MEDS: PANTOPRAZOLE IV PUSH 40 MG VIAL. IVP SCH ×2 (05:34→18:00)
[2019-06-23] MEDS: VECURONIUM BROMIDE 50 MG in TOTAL VOLUME 50 ML IV PRN ×2 (05:34→13:21)
[2019-06-23] MEDS: ENOXAPARIN 40 MG/0.4 ML SYRINGE. SQ SCH (05:38)
[2019-06-23 05:56] LABS: ALBUMIN 1.3 g/dL (3.4-5.0); ALBUMIN/GLOBULIN RATIO 0.3 (1.0-1.7); CALCIUM 7.7 mg/dL (8.5-10.1); CREATININE 1.6 mg/dL (0.7-1.3); GFR 55.9; PHOSPHORUS 3.4 mg/dL (2.6-4.7); POTASSIUM 5.2 mmol/L (3.5-5.1); TOTAL BILIRUBIN 3.4 mg/dL (0.2-1.0); TOTAL PROTEIN 5.2 g/dL (6.4-8.2)
--- NOTE | 2019-06-23 06:44 | RAD ---
AP chest. HISTORY: Patient on ventilator, follow-up AP view was taken of the chest. There is a tracheostomy tube unchanged. Central line and dialysis catheter are unchanged. There is a left pleural effusion. There is left lower lobe atelectasis or consolidation. IMPRESSION: 1. No significant change. Electronically signed by: Jim López MD (06/23/2019 6:41 AM) [id number]
[2019-06-23] MEDS: ALBUTEROL SULFATE 2.5 MG/3 ML NEBU. NEB SCH ×4 (07:40→19:17)
--- NOTE | 2019-06-23 07:50 | PDOC ---
Infectious Disease Note Subjective Subjective sedated on vent ROS ROS no n/v/d/sob Vital Sign Vital Signs Vital Signs Date Time Temp Pulse Resp B/P (MAP) Pulse Ox O2 Delivery O2 Flow Rate FiO2 06/23/19 06:00 99.3 100 18 116/51 (72) 100 Ventilator 99.3 Physical Exam PHYSICAL EXAM GENERAL: Sedated, orally intubated on vent, mitts, under cooling blanket HEENT: Pupils equal, small. OGT/ETT in place NECK: Supple no JVD LUNGS: Diminished aeration bases HEART: S1, S2, regular, no murmurs. ABDOMEN: Distended, fairly tight, bowel sounds hypoactive : [place] EXTREMITIES: Trace edema, no cyanosis. SCDs bilaterally SKIN: Warm, dry. 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 (06/19) Labs Lab Laboratory Tests Test 06/22/19 08:20 06/22/19 08:56 06/22/19 16:16 06/22/19 17:00 O2 Saturation 98 % (92-99) Arterial Blood pH 7.41 (7.35-7.45) Arterial Blood pCO2 at Patient Temp 40 mmHg (35-46) Arterial Blood pO2 at Patient Temp 120 mmHg (75-108) Arterial Blood HCO3 24 mmol/L (21-28) Arterial Blood Base Excess 0 mmol/L (-3-3) FiO2 40 Glucose (Fingerstick) 95 mg/dL (70-99) 327 mg/dL (70-99) White Blood Count 19.3 x10^3/uL (4.0-11.0) Red Blood Count 3.41 x10^6/uL (4.30-5.70) Hemoglobin 9.8 g/dL (13.0-17.5) Hematocrit 31.0 % (39.0-53.0) Mean Corpuscular Volume 91 fL (79-100) Mean Corpuscular Hemoglobin 29 pg (25-35) Mean Corpuscular Hemoglobin Concent 32 g/dL (31-37) Red Cell Distribution Width 14.8 % (11.5-14.5) Platelet Count 285 x10^3/uL (140-400) Neutrophils (%) (Auto) 94 % (31-73) Lymphocytes (%) (Auto) 2 % (24-48) Monocytes (%) (Auto) 4 % (0-9) Eosinophils (%) (Auto) 0 % (0-3) Basophils (%) (Auto) 1 % (0-3) Neutrophils # (Auto) 18.1 x10^3/uL (1.8-7.7) Lymphocytes # (Auto) 0.4 x10^3/uL (1.0-4.8) Monocytes # (Auto) 0.7 x10^3/uL (0.0-1.1) Eosinophils # (Auto) 0.0 x10^3/uL (0.0-0.7) Basophils # (Auto) 0.1 x10^3/uL (0.0-0.2) Segmented Neutrophils % 76 % (35-66) Band Neutrophils % 18 % (0-9) Lymphocytes % 5 % (24-48) Monocytes % 1 % (0-10) Toxic Granulation Mod Platelet Estimate Adequate (ADEQUATE) Polychromasia Slight Hypochromasia Slight Anisocytosis Slight Sodium Level 152 mmol/L (136-145) Potassium Level 5.7 mmol/L (3.5-5.1) Chloride Level 115 mmol/L (98-107) Carbon Dioxide Level 28 mmol/L (21-32) Anion Gap 9 (6-14) Blood Urea Nitrogen 33 mg/dL (8-26) Creatinine 1.5 mg/dL (0.7-1.3) Estimated GFR (Cockcroft-Gault) 60.2 Glucose Level 356 mg/dL (70-99) Calcium Level 7.4 mg/dL (8.5-10.1) Test 06/22/19 19:55 06/22/19 20:28 06/22/19 23:48 06/23/19 03:48 O2 Saturation 98 % (92-99) Arterial Blood pH 7.45 (7.35-7.45) Arterial Blood pCO2 at Patient Temp 35 mmHg (35-46) Arterial Blood pO2 at Patient Temp 132 mmHg (75-108) Arterial Blood HCO3 23 mmol/L (21-28) Arterial Blood Base Excess 0 mmol/L (-3-3) FiO2 40 Glucose (Fingerstick) 349 mg/dL (70-99) 372 mg/dL (70-99) 358 mg/dL (70-99) Test 06/23/19 05:25 White Blood Count 19.1 x10^3/uL (4.0-11.0) Red Blood Count 3.13 x10^6/uL (4.30-5.70) Hemoglobin 9.1 g/dL (13.0-17.5) Hematocrit 28.3 % (39.0-53.0) Mean Corpuscular Volume 91 fL (79-100) Mean Corpuscular Hemoglobin 29 pg (25-35) Mean Corpuscular Hemoglobin Concent 32 g/dL (31-37) Red Cell Distribution Width 14.7 % (11.5-14.5) Platelet Count 261 x10^3/uL (140-400) Neutrophils (%) (Auto) 93 % (31-73) Lymphocytes (%) (Auto) 3 % (24-48) Monocytes (%) (Auto) 4 % (0-9) Eosinophils (%) (Auto) 0 % (0-3) Basophils (%) (Auto) 0 % (0-3) Neutrophils # (Auto) 17.7 x10^3/uL (1.8-7.7) Lymphocytes # (Auto) 0.5 x10^3/uL (1.0-4.8) Monocytes # (Auto) 0.8 x10^3/uL (0.0-1.1) Eosinophils # (Auto) 0.0 x10^3/uL (0.0-0.7) Basophils # (Auto) 0.0 x10^3/uL (0.0-0.2) Sodium Level 151 mmol/L (136-145) Potassium Level 5.2 mmol/L (3.5-5.1) Chloride Level 116 mmol/L (98-107) Carbon Dioxide Level 29 mmol/L (21-32) Anion Gap 6 (6-14) Blood Urea Nitrogen 45 mg/dL (8-26) Creatinine 1.6 mg/dL (0.7-1.3) Estimated GFR (Cockcroft-Gault) 55.9 BUN/Creatinine Ratio 28 (6-20) Glucose Level 395 mg/dL (70-99) Calcium Level 7.7 mg/dL (8.5-10.1) Phosphorus Level 3.4 mg/dL (2.6-4.7) Magnesium Level 2.0 mg/dL (1.8-2.4) Total Bilirubin 3.4 mg/dL (0.2-1.0) Aspartate Amino Transf (AST/SGOT) 55 U/L (15-37) Alanine Aminotransferase (ALT/SGPT) 49 U/L (16-63) Alkaline Phosphatase 111 U/L (46-116) Total Protein 5.2 g/dL (6.4-8.2) Albumin 1.3 g/dL (3.4-5.0) Albumin/Globulin Ratio 0.3 (1.0-1.7) Triglycerides Level 286 mg/dL (0-150) Micro Microbiology 06/20/19 Blood Culture - Preliminary, Resulted NO GROWTH AFTER 2 DAYS Objective Assessment Fever - improved Leukocytosis Gallbladder stone pancreatitis - lipase 475 06/15.- better. CT 06/15 - Fluid collection along the inferior aspect of the stomach measures 9.6 x 4.0 cm. Loculated fluid collection along the anterior aspect of the pancreas measures 3.0 x 2.6 cm -per surgery Sepsis from GI - cult neg Acute Resp failure - intubated Lactic acidosis. Acute kidney injury previously requiring dialysis - now with improved UOP, HDC (06/13) still in place Metabolic acidosis. Hypocalcemia Exploratory laparotomy, pancreatic necrosectomy, cholecystostomy tube placement, Gastrostomy placement with jejunal extension, tracheostomy placement 06/21 Plan Plan of Care Continue empiric merrem, micafungin (06/19) and Zyvox( ) BC neg to date Maintain aspiration precaution. D/w nursing Critically ill KRISTIAN GOODMAN MD Jun 23, 2019 07:50
[2019-06-23] MEDS: MICAFUNGIN 100 MG in IV DEXTROSE 5% 100ML 100 ML IV SCH (07:51)
[2019-06-23 07:57] LABS: BASE EXCESS ABG -1 mmol/L (-3-3); HCO3 ABG 26 mmol/L (21-28); PCO2 ABG 55 mmHg (35-46); PO2 ABG 93 mmHg (75-108); SAT O2 ABG 94 % (92-99)
[2019-06-23 08:00] LABS: FIO2 ABG 40
[2019-06-23] MEDS: CHLORHEXIDINE 0.12% 15 ML MOUTHWASH. MM SCH ×2 (09:00→21:11)
[2019-06-23] MEDS: MIDAZOLAM HCL 50 MG in IV NORMAL SALINE 50ML 50 ML IV PRN ×2 (09:33→21:12)
[2019-06-23] MEDS: IV DEXTROSE 5% 1,000 ML IV SCH ×2 (09:40→22:25)
--- NOTE | 2019-06-23 09:42 | PDOC ---
Objective: Objective: D/w nurse - had a stool. On TPN, PPI. Vital Signs: Vital Signs Date Time Temp Pulse Resp B/P (MAP) Pulse Ox O2 Delivery O2 Flow Rate FiO2 06/23/19 07:40 96 Ventilator 06/23/19 06:00 99.3 100 18 116/51 (72) 99.3 Labs: Laboratory Tests Test 06/22/19 16:16 06/22/19 17:00 06/22/19 19:55 06/22/19 20:28 White Blood Count 19.3 x10^3/uL Red Blood Count 3.41 x10^6/uL Hemoglobin 9.8 g/dL Hematocrit 31.0 % Mean Corpuscular Volume 91 fL Mean Corpuscular Hemoglobin 29 pg Mean Corpuscular Hemoglobin Concent 32 g/dL Red Cell Distribution Width 14.8 % Platelet Count 285 x10^3/uL Neutrophils (%) (Auto) 94 % Lymphocytes (%) (Auto) 2 % Monocytes (%) (Auto) 4 % Eosinophils (%) (Auto) 0 % Basophils (%) (Auto) 1 % Neutrophils # (Auto) 18.1 x10^3/uL Lymphocytes # (Auto) 0.4 x10^3/uL Monocytes # (Auto) 0.7 x10^3/uL Eosinophils # (Auto) 0.0 x10^3/uL Basophils # (Auto) 0.1 x10^3/uL Segmented Neutrophils % 76 % Band Neutrophils % 18 % Lymphocytes % 5 % Monocytes % 1 % Toxic Granulation Mod Platelet Estimate Adequate Polychromasia Slight Hypochromasia Slight Anisocytosis Slight Sodium Level 152 mmol/L Potassium Level 5.7 mmol/L Chloride Level 115 mmol/L Carbon Dioxide Level 28 mmol/L Anion Gap 9 Blood Urea Nitrogen 33 mg/dL Creatinine 1.5 mg/dL Estimated GFR (Cockcroft-Gault) 60.2 Glucose Level 356 mg/dL Calcium Level 7.4 mg/dL Glucose (Fingerstick) 327 mg/dL 349 mg/dL O2 Saturation 98 % Arterial Blood pH 7.45 Arterial Blood pCO2 at Patient Temp 35 mmHg Arterial Blood pO2 at Patient Temp 132 mmHg Arterial Blood HCO3 23 mmol/L Arterial Blood Base Excess 0 mmol/L FiO2 40 Test 06/22/19 23:48 06/23/19 03:48 06/23/19 05:25 06/23/19 07:40 Glucose (Fingerstick) 372 mg/dL 358 mg/dL White Blood Count 19.1 x10^3/uL Red Blood Count 3.13 x10^6/uL Hemoglobin 9.1 g/dL Hematocrit 28.3 % Mean Corpuscular Volume 91 fL Mean Corpuscular Hemoglobin 29 pg Mean Corpuscular Hemoglobin Concent 32 g/dL Red Cell Distribution Width 14.7 % Platelet Count 261 x10^3/uL Neutrophils (%) (Auto) 93 % Lymphocytes (%) (Auto) 3 % Monocytes (%) (Auto) 4 % Eosinophils (%) (Auto) 0 % Basophils (%) (Auto) 0 % Neutrophils # (Auto) 17.7 x10^3/uL Lymphocytes # (Auto) 0.5 x10^3/uL Monocytes # (Auto) 0.8 x10^3/uL Eosinophils # (Auto) 0.0 x10^3/uL Basophils # (Auto) 0.0 x10^3/uL Sodium Level 151 mmol/L Potassium Level 5.2 mmol/L Chloride Level 116 mmol/L Carbon Dioxide Level 29 mmol/L Anion Gap 6 Blood Urea Nitrogen 45 mg/dL Creatinine 1.6 mg/dL Estimated GFR (Cockcroft-Gault) 55.9 BUN/Creatinine Ratio 28 Glucose Level 395 mg/dL Calcium Level 7.7 mg/dL Phosphorus Level 3.4 mg/dL Magnesium Level 2.0 mg/dL Total Bilirubin 3.4 mg/dL Aspartate Amino Transf (AST/SGOT) 55 U/L Alanine Aminotransferase (ALT/SGPT) 49 U/L Alkaline Phosphatase 111 U/L Total Protein 5.2 g/dL Albumin 1.3 g/dL Albumin/Globulin Ratio 0.3 Triglycerides Level 286 mg/dL O2 Saturation 94 % Arterial Blood pH 7.29 Arterial Blood pCO2 at Patient Temp 55 mmHg Arterial Blood pO2 at Patient Temp 93 mmHg Arterial Blood HCO3 26 mmol/L Arterial Blood Base Excess -1 mmol/L FiO2 40 Test 06/23/19 08:04 Glucose (Fingerstick) 331 mg/dL BLOOD CULTURE Preliminary NO GROWTH AFTER 3 DAYS Imaging: CXR 06/22 IMPRESSION: 1. No significant change. PE: GEN: intubated/tracheostomy LUNGS: clear HEART: RRR ABD: distended, dressing/drains NEURO/PSYCH: sedated A/P: S/p expl lap, pancreatic necrosectomy, cholecystostomy, gastrostomy, tracheostomy -- Continue support. Hemodynamically unstable?: Yes Is patient in severe pain?: Yes Is NPO status required?: Yes PAXTON ALEXANDER Jun 23, 2019 09:42
--- NOTE | 2019-06-23 10:18 | PDOC ---
SURGICAL PROGRESS NOTE Subjective sedated, intubated family present Vital Signs Vital Signs Date Time Temp Pulse Resp B/P (MAP) Pulse Ox O2 Delivery O2 Flow Rate FiO2 06/23/19 07:40 96 Ventilator 06/23/19 06:00 99.3 100 18 116/51 (72) 99.3 I&O Intake and Output 06/23/19 07:00 Intake Total 4041 ml Output Total 2540 ml Balance 1501 ml IV Total 4041 ml Output Urine Total 2100 ml Drainage Total 440 ml # Bowel Movements 1 PATIENT HAS A LEPE: Yes General: No acute distress, Other (sedated ) Abdomen: Soft, Other (drains in place) Labs Laboratory Tests Test 06/21/19 14:18 06/21/19 17:07 06/21/19 19:50 06/21/19 23:29 Glucose (Fingerstick) 323 mg/dL (70-99) 315 mg/dL (70-99) 303 mg/dL (70-99) 306 mg/dL (70-99) Test 06/22/19 03:52 06/22/19 05:40 06/22/19 08:20 06/22/19 08:56 Glucose (Fingerstick) 320 mg/dL (70-99) 95 mg/dL (70-99) White Blood Count 18.0 x10^3/uL (4.0-11.0) Red Blood Count 3.34 x10^6/uL (4.30-5.70) Hemoglobin 9.6 g/dL (13.0-17.5) Hematocrit 30.2 % (39.0-53.0) Mean Corpuscular Volume 90 fL (79-100) Mean Corpuscular Hemoglobin 29 pg (25-35) Mean Corpuscular Hemoglobin Concent 32 g/dL (31-37) Red Cell Distribution Width 14.4 % (11.5-14.5) Platelet Count 286 x10^3/uL (140-400) Neutrophils (%) (Auto) 94 % (31-73) Lymphocytes (%) (Auto) 2 % (24-48) Monocytes (%) (Auto) 3 % (0-9) Eosinophils (%) (Auto) 0 % (0-3) Basophils (%) (Auto) 0 % (0-3) Neutrophils # (Auto) 17.0 x10^3/uL (1.8-7.7) Lymphocytes # (Auto) 0.4 x10^3/uL (1.0-4.8) Monocytes # (Auto) 0.6 x10^3/uL (0.0-1.1) Eosinophils # (Auto) 0.0 x10^3/uL (0.0-0.7) Basophils # (Auto) 0.0 x10^3/uL (0.0-0.2) Sodium Level 152 mmol/L (136-145) Potassium Level 4.8 mmol/L (3.5-5.1) Chloride Level 116 mmol/L (98-107) Carbon Dioxide Level 28 mmol/L (21-32) Anion Gap 8 (6-14) Blood Urea Nitrogen 33 mg/dL (8-26) Creatinine 1.4 mg/dL (0.7-1.3) Estimated GFR (Cockcroft-Gault) 65.2 Glucose Level 364 mg/dL (70-99) Calcium Level 8.1 mg/dL (8.5-10.1) Phosphorus Level 2.7 mg/dL (2.6-4.7) Magnesium Level 2.0 mg/dL (1.8-2.4) Lipase 219 U/L (73-393) O2 Saturation 98 % (92-99) Arterial Blood pH 7.41 (7.35-7.45) Arterial Blood pCO2 at Patient Temp 40 mmHg (35-46) Arterial Blood pO2 at Patient Temp 120 mmHg (75-108) Arterial Blood HCO3 24 mmol/L (21-28) Arterial Blood Base Excess 0 mmol/L (-3-3) FiO2 40 Test 06/22/19 16:16 06/22/19 17:00 06/22/19 19:55 06/22/19 20:28 White Blood Count 19.3 x10^3/uL (4.0-11.0) Red Blood Count 3.41 x10^6/uL (4.30-5.70) Hemoglobin 9.8 g/dL (13.0-17.5) Hematocrit 31.0 % (39.0-53.0) Mean Corpuscular Volume 91 fL (79-100) Mean Corpuscular Hemoglobin 29 pg (25-35) Mean Corpuscular Hemoglobin Concent 32 g/dL (31-37) Red Cell Distribution Width 14.8 % (11.5-14.5) Platelet Count 285 x10^3/uL (140-400) Neutrophils (%) (Auto) 94 % (31-73) Lymphocytes (%) (Auto) 2 % (24-48) Monocytes (%) (Auto) 4 % (0-9) Eosinophils (%) (Auto) 0 % (0-3) Basophils (%) (Auto) 1 % (0-3) Neutrophils # (Auto) 18.1 x10^3/uL (1.8-7.7) Lymphocytes # (Auto) 0.4 x10^3/uL (1.0-4.8) Monocytes # (Auto) 0.7 x10^3/uL (0.0-1.1) Eosinophils # (Auto) 0.0 x10^3/uL (0.0-0.7) Basophils # (Auto) 0.1 x10^3/uL (0.0-0.2) Segmented Neutrophils % 76 % (35-66) Band Neutrophils % 18 % (0-9) Lymphocytes % 5 % (24-48) Monocytes % 1 % (0-10) Toxic Granulation Mod Platelet Estimate Adequate (ADEQUATE) Polychromasia Slight Hypochromasia Slight Anisocytosis Slight Sodium Level 152 mmol/L (136-145) Potassium Level 5.7 mmol/L (3.5-5.1) Chloride Level 115 mmol/L (98-107) Carbon Dioxide Level 28 mmol/L (21-32) Anion Gap 9 (6-14) Blood Urea Nitrogen 33 mg/dL (8-26) Creatinine 1.5 mg/dL (0.7-1.3) Estimated GFR (Cockcroft-Gault) 60.2 Glucose Level 356 mg/dL (70-99) Calcium Level 7.4 mg/dL (8.5-10.1) Glucose (Fingerstick) 327 mg/dL (70-99) 349 mg/dL (70-99) O2 Saturation 98 % (92-99) Arterial Blood pH 7.45 (7.35-7.45) Arterial Blood pCO2 at Patient Temp 35 mmHg (35-46) Arterial Blood pO2 at Patient Temp 132 mmHg (75-108) Arterial Blood HCO3 23 mmol/L (21-28) Arterial Blood Base Excess 0 mmol/L (-3-3) FiO2 40 Test 06/22/19 23:48 06/23/19 03:48 06/23/19 05:25 06/23/19 07:40 Glucose (Fingerstick) 372 mg/dL (70-99) 358 mg/dL (70-99) White Blood Count 19.1 x10^3/uL (4.0-11.0) Red Blood Count 3.13 x10^6/uL (4.30-5.70) Hemoglobin 9.1 g/dL (13.0-17.5) Hematocrit 28.3 % (39.0-53.0) Mean Corpuscular Volume 91 fL (79-100) Mean Corpuscular Hemoglobin 29 pg (25-35) Mean Corpuscular Hemoglobin Concent 32 g/dL (31-37) Red Cell Distribution Width 14.7 % (11.5-14.5) Platelet Count 261 x10^3/uL (140-400) Neutrophils (%) (Auto) 93 % (31-73) Lymphocytes (%) (Auto) 3 % (24-48) Monocytes (%) (Auto) 4 % (0-9) Eosinophils (%) (Auto) 0 % (0-3) Basophils (%) (Auto) 0 % (0-3) Neutrophils # (Auto) 17.7 x10^3/uL (1.8-7.7) Lymphocytes # (Auto) 0.5 x10^3/uL (1.0-4.8) Monocytes # (Auto) 0.8 x10^3/uL (0.0-1.1) Eosinophils # (Auto) 0.0 x10^3/uL (0.0-0.7) Basophils # (Auto) 0.0 x10^3/uL (0.0-0.2) Sodium Level 151 mmol/L (136-145) Potassium Level 5.2 mmol/L (3.5-5.1) Chloride Level 116 mmol/L (98-107) Carbon Dioxide Level 29 mmol/L (21-32) Anion Gap 6 (6-14) Blood Urea Nitrogen 45 mg/dL (8-26) Creatinine 1.6 mg/dL (0.7-1.3) Estimated GFR (Cockcroft-Gault) 55.9 BUN/Creatinine Ratio 28 (6-20) Glucose Level 395 mg/dL (70-99) Calcium Level 7.7 mg/dL (8.5-10.1) Phosphorus Level 3.4 mg/dL (2.6-4.7) Magnesium Level 2.0 mg/dL (1.8-2.4) Total Bilirubin 3.4 mg/dL (0.2-1.0) Aspartate Amino Transf (AST/SGOT) 55 U/L (15-37) Alanine Aminotransferase (ALT/SGPT) 49 U/L (16-63) Alkaline Phosphatase 111 U/L (46-116) Total Protein 5.2 g/dL (6.4-8.2) Albumin 1.3 g/dL (3.4-5.0) Albumin/Globulin Ratio 0.3 (1.0-1.7) Triglycerides Level 286 mg/dL (0-150) O2 Saturation 94 % (92-99) Arterial Blood pH 7.29 (7.35-7.45) Arterial Blood pCO2 at Patient Temp 55 mmHg (35-46) Arterial Blood pO2 at Patient Temp 93 mmHg (75-108) Arterial Blood HCO3 26 mmol/L (21-28) Arterial Blood Base Excess -1 mmol/L (-3-3) FiO2 40 Test 06/23/19 08:04 Glucose (Fingerstick) 331 mg/dL (70-99) Laboratory Tests Test 06/22/19 16:16 06/22/19 17:00 06/22/19 19:55 06/22/19 20:28 White Blood Count 19.3 x10^3/uL (4.0-11.0) Red Blood Count 3.41 x10^6/uL (4.30-5.70) Hemoglobin 9.8 g/dL (13.0-17.5) Hematocrit 31.0 % (39.0-53.0) Mean Corpuscular Volume 91 fL (79-100) Mean Corpuscular Hemoglobin 29 pg (25-35) Mean Corpuscular Hemoglobin Concent 32 g/dL (31-37) Red Cell Distribution Width 14.8 % (11.5-14.5) Platelet Count 285 x10^3/uL (140-400) Neutrophils (%) (Auto) 94 % (31-73) Lymphocytes (%) (Auto) 2 % (24-48) Monocytes (%) (Auto) 4 % (0-9) Eosinophils (%) (Auto) 0 % (0-3) Basophils (%) (Auto) 1 % (0-3) Neutrophils # (Auto) 18.1 x10^3/uL (1.8-7.7) Lymphocytes # (Auto) 0.4 x10^3/uL (1.0-4.8) Monocytes # (Auto) 0.7 x10^3/uL (0.0-1.1) Eosinophils # (Auto) 0.0 x10^3/uL (0.0-0.7) Basophils # (Auto) 0.1 x10^3/uL (0.0-0.2) Segmented Neutrophils % 76 % (35-66) Band Neutrophils % 18 % (0-9) Lymphocytes % 5 % (24-48) Monocytes % 1 % (0-10) Toxic Granulation Mod Platelet Estimate Adequate (ADEQUATE) Polychromasia Slight Hypochromasia Slight Anisocytosis Slight Sodium Level 152 mmol/L (136-145) Potassium Level 5.7 mmol/L (3.5-5.1) Chloride Level 115 mmol/L (98-107) Carbon Dioxide Level 28 mmol/L (21-32) Anion Gap 9 (6-14) Blood Urea Nitrogen 33 mg/dL (8-26) Creatinine 1.5 mg/dL (0.7-1.3) Estimated GFR (Cockcroft-Gault) 60.2 Glucose Level 356 mg/dL (70-99) Calcium Level 7.4 mg/dL (8.5-10.1) Glucose (Fingerstick) 327 mg/dL (70-99) 349 mg/dL (70-99) O2 Saturation 98 % (92-99) Arterial Blood pH 7.45 (7.35-7.45) Arterial Blood pCO2 at Patient Temp 35 mmHg (35-46) Arterial Blood pO2 at Patient Temp 132 mmHg (75-108) Arterial Blood HCO3 23 mmol/L (21-28) Arterial Blood Base Excess 0 mmol/L (-3-3) FiO2 40 Test 06/22/19 23:48 06/23/19 03:48 06/23/19 05:25 06/23/19 07:40 Glucose (Fingerstick) 372 mg/dL (70-99) 358 mg/dL (70-99) White Blood Count 19.1 x10^3/uL (4.0-11.0) Red Blood Count 3.13 x10^6/uL (4.30-5.70) Hemoglobin 9.1 g/dL (13.0-17.5) Hematocrit 28.3 % (39.0-53.0) Mean Corpuscular Volume 91 fL (79-100) Mean Corpuscular Hemoglobin 29 pg (25-35) Mean Corpuscular Hemoglobin Concent 32 g/dL (31-37) Red Cell Distribution Width 14.7 % (11.5-14.5) Platelet Count 261 x10^3/uL (140-400) Neutrophils (%) (Auto) 93 % (31-73) Lymphocytes (%) (Auto) 3 % (24-48) Monocytes (%) (Auto) 4 % (0-9) Eosinophils (%) (Auto) 0 % (0-3) Basophils (%) (Auto) 0 % (0-3) Neutrophils # (Auto) 17.7 x10^3/uL (1.8-7.7) Lymphocytes # (Auto) 0.5 x10^3/uL (1.0-4.8) Monocytes # (Auto) 0.8 x10^3/uL (0.0-1.1) Eosinophils # (Auto) 0.0 x10^3/uL (0.0-0.7) Basophils # (Auto) 0.0 x10^3/uL (0.0-0.2) Sodium Level 151 mmol/L (136-145) Potassium Level 5.2 mmol/L (3.5-5.1) Chloride Level 116 mmol/L (98-107) Carbon Dioxide Level 29 mmol/L (21-32) Anion Gap 6 (6-14) Blood Urea Nitrogen 45 mg/dL (8-26) Creatinine 1.6 mg/dL (0.7-1.3) Estimated GFR (Cockcroft-Gault) 55.9 BUN/Creatinine Ratio 28 (6-20) Glucose Level 395 mg/dL (70-99) Calcium Level 7.7 mg/dL (8.5-10.1) Phosphorus Level 3.4 mg/dL (2.6-4.7) Magnesium Level 2.0 mg/dL (1.8-2.4) Total Bilirubin 3.4 mg/dL (0.2-1.0) Aspartate Amino Transf (AST/SGOT) 55 U/L (15-37) Alanine Aminotransferase (ALT/SGPT) 49 U/L (16-63) Alkaline Phosphatase 111 U/L (46-116) Total Protein 5.2 g/dL (6.4-8.2) Albumin 1.3 g/dL (3.4-5.0) Albumin/Globulin Ratio 0.3 (1.0-1.7) Triglycerides Level 286 mg/dL (0-150) O2 Saturation 94 % (92-99) Arterial Blood pH 7.29 (7.35-7.45) Arterial Blood pCO2 at Patient Temp 55 mmHg (35-46) Arterial Blood pO2 at Patient Temp 93 mmHg (75-108) Arterial Blood HCO3 26 mmol/L (21-28) Arterial Blood Base Excess -1 mmol/L (-3-3) FiO2 40 Test 06/23/19 08:04 Glucose (Fingerstick) 331 mg/dL (70-99) Problem List Problems Medical Problems: (1) Acute pancreatitis Status: Acute (2) Nausea & vomiting Status: Acute Assessment/Plan s/p Exploratory laparotomy, pancreatic necrosectomy, cholecystostomy tube placement, Gastrostomy placement with jejunal extension, tracheostomy placement supportive care MAXIMILIANO GREENBERG [employer] Jun 23, 2019 10:18
--- NOTE | 2019-06-23 11:00 | PDOC ---
Renal-Progress Notes Subjective Notes Notes INTUBATED History of Present Illness Hx of present illness CRITICALLY ILL Vitals Vitals Vital Signs Date Time Temp Pulse Resp B/P (MAP) Pulse Ox O2 Delivery O2 Flow Rate FiO2 06/23/19 08:00 Mechanical Ventilator 06/23/19 08:00 111 06/23/19 07:40 96 06/23/19 06:00 99.3 18 99.3 Weight Weight [ ] I.O. Intake and Output Intake and Output 06/23/19 07:00 Intake Total 4041 ml Output Total 2540 ml Balance 1501 ml IV Total 4041 ml Output Urine Total 2100 ml Drainage Total 440 ml # Bowel Movements 1 Labs Labs Laboratory Tests Test 06/22/19 16:16 06/22/19 17:00 06/22/19 19:55 06/22/19 20:28 White Blood Count 19.3 x10^3/uL (4.0-11.0) Red Blood Count 3.41 x10^6/uL (4.30-5.70) Hemoglobin 9.8 g/dL (13.0-17.5) Hematocrit 31.0 % (39.0-53.0) Mean Corpuscular Volume 91 fL (79-100) Mean Corpuscular Hemoglobin 29 pg (25-35) Mean Corpuscular Hemoglobin Concent 32 g/dL (31-37) Red Cell Distribution Width 14.8 % (11.5-14.5) Platelet Count 285 x10^3/uL (140-400) Neutrophils (%) (Auto) 94 % (31-73) Lymphocytes (%) (Auto) 2 % (24-48) Monocytes (%) (Auto) 4 % (0-9) Eosinophils (%) (Auto) 0 % (0-3) Basophils (%) (Auto) 1 % (0-3) Neutrophils # (Auto) 18.1 x10^3/uL (1.8-7.7) Lymphocytes # (Auto) 0.4 x10^3/uL (1.0-4.8) Monocytes # (Auto) 0.7 x10^3/uL (0.0-1.1) Eosinophils # (Auto) 0.0 x10^3/uL (0.0-0.7) Basophils # (Auto) 0.1 x10^3/uL (0.0-0.2) Segmented Neutrophils % 76 % (35-66) Band Neutrophils % 18 % (0-9) Lymphocytes % 5 % (24-48) Monocytes % 1 % (0-10) Toxic Granulation Mod Platelet Estimate Adequate (ADEQUATE) Polychromasia Slight Hypochromasia Slight Anisocytosis Slight Sodium Level 152 mmol/L (136-145) Potassium Level 5.7 mmol/L (3.5-5.1) Chloride Level 115 mmol/L (98-107) Carbon Dioxide Level 28 mmol/L (21-32) Anion Gap 9 (6-14) Blood Urea Nitrogen 33 mg/dL (8-26) Creatinine 1.5 mg/dL (0.7-1.3) Estimated GFR (Cockcroft-Gault) 60.2 Glucose Level 356 mg/dL (70-99) Calcium Level 7.4 mg/dL (8.5-10.1) Glucose (Fingerstick) 327 mg/dL (70-99) 349 mg/dL (70-99) O2 Saturation 98 % (92-99) Arterial Blood pH 7.45 (7.35-7.45) Arterial Blood pCO2 at Patient Temp 35 mmHg (35-46) Arterial Blood pO2 at Patient Temp 132 mmHg (75-108) Arterial Blood HCO3 23 mmol/L (21-28) Arterial Blood Base Excess 0 mmol/L (-3-3) FiO2 40 Test 06/22/19 23:48 06/23/19 03:48 06/23/19 05:25 06/23/19 07:40 Glucose (Fingerstick) 372 mg/dL (70-99) 358 mg/dL (70-99) White Blood Count 19.1 x10^3/uL (4.0-11.0) Red Blood Count 3.13 x10^6/uL (4.30-5.70) Hemoglobin 9.1 g/dL (13.0-17.5) Hematocrit 28.3 % (39.0-53.0) Mean Corpuscular Volume 91 fL (79-100) Mean Corpuscular Hemoglobin 29 pg (25-35) Mean Corpuscular Hemoglobin Concent 32 g/dL (31-37) Red Cell Distribution Width 14.7 % (11.5-14.5) Platelet Count 261 x10^3/uL (140-400) Neutrophils (%) (Auto) 93 % (31-73) Lymphocytes (%) (Auto) 3 % (24-48) Monocytes (%) (Auto) 4 % (0-9) Eosinophils (%) (Auto) 0 % (0-3) Basophils (%) (Auto) 0 % (0-3) Neutrophils # (Auto) 17.7 x10^3/uL (1.8-7.7) Lymphocytes # (Auto) 0.5 x10^3/uL (1.0-4.8) Monocytes # (Auto) 0.8 x10^3/uL (0.0-1.1) Eosinophils # (Auto) 0.0 x10^3/uL (0.0-0.7) Basophils # (Auto) 0.0 x10^3/uL (0.0-0.2) Sodium Level 151 mmol/L (136-145) Potassium Level 5.2 mmol/L (3.5-5.1) Chloride Level 116 mmol/L (98-107) Carbon Dioxide Level 29 mmol/L (21-32) Anion Gap 6 (6-14) Blood Urea Nitrogen 45 mg/dL (8-26) Creatinine 1.6 mg/dL (0.7-1.3) Estimated GFR (Cockcroft-Gault) 55.9 BUN/Creatinine Ratio 28 (6-20) Glucose Level 395 mg/dL (70-99) Calcium Level 7.7 mg/dL (8.5-10.1) Phosphorus Level 3.4 mg/dL (2.6-4.7) Magnesium Level 2.0 mg/dL (1.8-2.4) Total Bilirubin 3.4 mg/dL (0.2-1.0) Aspartate Amino Transf (AST/SGOT) 55 U/L (15-37) Alanine Aminotransferase (ALT/SGPT) 49 U/L (16-63) Alkaline Phosphatase 111 U/L (46-116) Total Protein 5.2 g/dL (6.4-8.2) Albumin 1.3 g/dL (3.4-5.0) Albumin/Globulin Ratio 0.3 (1.0-1.7) Triglycerides Level 286 mg/dL (0-150) O2 Saturation 94 % (92-99) Arterial Blood pH 7.29 (7.35-7.45) Arterial Blood pCO2 at Patient Temp 55 mmHg (35-46) Arterial Blood pO2 at Patient Temp 93 mmHg (75-108) Arterial Blood HCO3 26 mmol/L (21-28) Arterial Blood Base Excess -1 mmol/L (-3-3) FiO2 40 Test 06/23/19 08:04 Glucose (Fingerstick) 331 mg/dL (70-99) Micro Micro Microbiology 06/20/19 Blood Culture - Preliminary, Resulted NO GROWTH AFTER 3 DAYS Review of Systems Constitutional: yes: unresponsive Physical Exam General Appearance: no apparent distress Skin: warm Respiratory: decreased breath sounds Heart: S1S2 Abdomen: distension, other (NO BS) Genitourinary: bladder flat Extremities: pulses present Neurology: other (sedated) Assessment Assessment IMP FABIOLA - IMPROVED WITH CR OF 1.6-OFF HD NOW LEUCOCYTOSIS GB STONE PANCREATITIS ACUTE RESP FAILURE MET ACIDOSIS S/P EXP LAP AND THEN PANCREATIC NECROSECTOMY WITH DRAINS PLAN CONT TPN CONT ANTIBIOTICS MONITOR RENAL FX HOPEFULLY NO FURTHER HD NEEDED D/W DR GOODMAN UPDATED FAMILY POOR PROGNOSIS ODD JOB LABORER WILL FOLLOW BERE QUIROZ MD Jun 23, 2019 11:00
--- NOTE | 2019-06-23 11:19 | PDOC ---
[facility] [facility] PROGRESS NOTE Chief Complaint Chief Complaint Acute hypoxemic respiratory failure, multifactorial. Status post tracheostomy 5 drains Acute gallstone pancreatitis./ Necrosis Acute kidney failure. improving Metabolic toxic encephalopathy. Hyperkalemia.corrected Metabolic / respiratory acidosis Hypocalcemia. Hepatitis B Hypernatremia LLL small effusion, monitor Exploratory laparotomy, pancreatic necrosectomy, cholecystostomy tube placement, Gastrostomy placement with jejunal extension, tracheostomy placement (specifically 8 shiley cuffed) Specimans Obtained: pancreatic necrosis, saponification, gallstones Findings: diffuse peritonitis, 1.5 liters of ascites, diffuse saponification, viable viscera, mulitiple gallstones, normal liver History of Present Illness History of Present Illness [id number] Patient seen and examined in the ICU He is on the ventilator and sedated and paralyzed Discussed with RN Discussed with his Chart reviewed Exploratory laparotomy, pancreatic necrosectomy, cholecystostomy tube placement, Gastrostomy placement with jejunal extension, tracheostomy placement (specific ally 8 shiley cuffed) Vitals/I&O Vitals/I&O: Vital Signs Date Time Temp Pulse Resp B/P (MAP) Pulse Ox O2 Delivery O2 Flow Rate FiO2 06/23/19 11:00 99.7 112 18 121/60 (80) 96 Ventilator 99.7 I & O 06/22/19 06/22/19 06/23/19 15:00 23:00 07:00 Intake Total 2158 ml 1883 ml Output Total 500 ml 665 ml 1375 ml Balance -500 ml 1493 ml 508 ml Physical Exam Physical Exam: GENERAL: Sedated, orally intubated on vent, mitts, under cooling blanket HEENT: Pupils equal, small. OGT/ETT in place NECK: Supple no JVD LUNGS: Diminished aeration bases HEART: S1, S2, regular, no murmurs. ABDOMEN: Distended, fairly tight, bowel sounds hypoactive : [place] EXTREMITIES: Trace edema, no cyanosis. SCDs bilaterally SKIN: Warm, dry. 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 RIJ & RIJ/HD catheter (06/19) General: No acute distress, Other (sedated ) Heart: Other (ST, rate near 125-130) Lungs: Clear Abdomen: Soft, Other (drains in place) Extremities: No edema Skin: No significant lesion Labs Labs: Laboratory Tests Test 06/22/19 16:16 06/22/19 17:00 06/22/19 19:55 06/22/19 20:28 White Blood Count 19.3 x10^3/uL (4.0-11.0) Red Blood Count 3.41 x10^6/uL (4.30-5.70) Hemoglobin 9.8 g/dL (13.0-17.5) Hematocrit 31.0 % (39.0-53.0) Mean Corpuscular Volume 91 fL (79-100) Mean Corpuscular Hemoglobin 29 pg (25-35) Mean Corpuscular Hemoglobin Concent 32 g/dL (31-37) Red Cell Distribution Width 14.8 % (11.5-14.5) Platelet Count 285 x10^3/uL (140-400) Neutrophils (%) (Auto) 94 % (31-73) Lymphocytes (%) (Auto) 2 % (24-48) Monocytes (%) (Auto) 4 % (0-9) Eosinophils (%) (Auto) 0 % (0-3) Basophils (%) (Auto) 1 % (0-3) Neutrophils # (Auto) 18.1 x10^3/uL (1.8-7.7) Lymphocytes # (Auto) 0.4 x10^3/uL (1.0-4.8) Monocytes # (Auto) 0.7 x10^3/uL (0.0-1.1) Eosinophils # (Auto) 0.0 x10^3/uL (0.0-0.7) Basophils # (Auto) 0.1 x10^3/uL (0.0-0.2) Segmented Neutrophils % 76 % (35-66) Band Neutrophils % 18 % (0-9) Lymphocytes % 5 % (24-48) Monocytes % 1 % (0-10) Toxic Granulation Mod Platelet Estimate Adequate (ADEQUATE) Polychromasia Slight Hypochromasia Slight Anisocytosis Slight Sodium Level 152 mmol/L (136-145) Potassium Level 5.7 mmol/L (3.5-5.1) Chloride Level 115 mmol/L (98-107) Carbon Dioxide Level 28 mmol/L (21-32) Anion Gap 9 (6-14) Blood Urea Nitrogen 33 mg/dL (8-26) Creatinine 1.5 mg/dL (0.7-1.3) Estimated GFR (Cockcroft-Gault) 60.2 Glucose Level 356 mg/dL (70-99) Calcium Level 7.4 mg/dL (8.5-10.1) Glucose (Fingerstick) 327 mg/dL (70-99) 349 mg/dL (70-99) O2 Saturation 98 % (92-99) Arterial Blood pH 7.45 (7.35-7.45) Arterial Blood pCO2 at Patient Temp 35 mmHg (35-46) Arterial Blood pO2 at Patient Temp 132 mmHg (75-108) Arterial Blood HCO3 23 mmol/L (21-28) Arterial Blood Base Excess 0 mmol/L (-3-3) FiO2 40 Test 06/22/19 23:48 06/23/19 03:48 06/23/19 05:25 06/23/19 07:40 Glucose (Fingerstick) 372 mg/dL (70-99) 358 mg/dL (70-99) White Blood Count 19.1 x10^3/uL (4.0-11.0) Red Blood Count 3.13 x10^6/uL (4.30-5.70) Hemoglobin 9.1 g/dL (13.0-17.5) Hematocrit 28.3 % (39.0-53.0) Mean Corpuscular Volume 91 fL (79-100) Mean Corpuscular Hemoglobin 29 pg (25-35) Mean Corpuscular Hemoglobin Concent 32 g/dL (31-37) Red Cell Distribution Width 14.7 % (11.5-14.5) Platelet Count 261 x10^3/uL (140-400) Neutrophils (%) (Auto) 93 % (31-73) Lymphocytes (%) (Auto) 3 % (24-48) Monocytes (%) (Auto) 4 % (0-9) Eosinophils (%) (Auto) 0 % (0-3) Basophils (%) (Auto) 0 % (0-3) Neutrophils # (Auto) 17.7 x10^3/uL (1.8-7.7) Lymphocytes # (Auto) 0.5 x10^3/uL (1.0-4.8) Monocytes # (Auto) 0.8 x10^3/uL (0.0-1.1) Eosinophils # (Auto) 0.0 x10^3/uL (0.0-0.7) Basophils # (Auto) 0.0 x10^3/uL (0.0-0.2) Sodium Level 151 mmol/L (136-145) Potassium Level 5.2 mmol/L (3.5-5.1) Chloride Level 116 mmol/L (98-107) Carbon Dioxide Level 29 mmol/L (21-32) Anion Gap 6 (6-14) Blood Urea Nitrogen 45 mg/dL (8-26) Creatinine 1.6 mg/dL (0.7-1.3) Estimated GFR (Cockcroft-Gault) 55.9 BUN/Creatinine Ratio 28 (6-20) Glucose Level 395 mg/dL (70-99) Calcium Level 7.7 mg/dL (8.5-10.1) Phosphorus Level 3.4 mg/dL (2.6-4.7) Magnesium Level 2.0 mg/dL (1.8-2.4) Total Bilirubin 3.4 mg/dL (0.2-1.0) Aspartate Amino Transf (AST/SGOT) 55 U/L (15-37) Alanine Aminotransferase (ALT/SGPT) 49 U/L (16-63) Alkaline Phosphatase 111 U/L (46-116) Total Protein 5.2 g/dL (6.4-8.2) Albumin 1.3 g/dL (3.4-5.0) Albumin/Globulin Ratio 0.3 (1.0-1.7) Triglycerides Level 286 mg/dL (0-150) O2 Saturation 94 % (92-99) Arterial Blood pH 7.29 (7.35-7.45) Arterial Blood pCO2 at Patient Temp 55 mmHg (35-46) Arterial Blood pO2 at Patient Temp 93 mmHg (75-108) Arterial Blood HCO3 26 mmol/L (21-28) Arterial Blood Base Excess -1 mmol/L (-3-3) FiO2 40 Test 06/23/19 08:04 Glucose (Fingerstick) 331 mg/dL (70-99) Review of Systems Review of Systems: Unable to obtain Assessment and Plan Assessmemt and Plan Problems Medical Problems: (1) Acute pancreatitis Status: Acute (2) Nausea & vomiting Status: Acute Acute hypoxemic respiratory failure, multifactorial. Status post tracheostomy 5 drains Acute gallstone pancreatitis./ Necrosis Acute kidney failure. improving Metabolic toxic encephalopathy. Hyperkalemia.corrected Metabolic / respiratory acidosis Hypocalcemia. Hepatitis B Hypernatremia LLL small effusion, monitor Plan ICU monitoring Vent weaning Paralytics and sedatives IV Trend labs IV antibiotics DVT prophylaxis Full code We are managing 5 drains discussed with RN Trach care Prognosis guarded He is critically ill Total time 32 minutes Comment Review of Relevant I have reviewed the following items alexandra (where applicable) has been applied. Medications: Current Medications Medications (Trade) Dose Ordered Sig/Jesse Route PRN Reason Start Time Stop Time Status Last Admin Dose Admin Cefoxitin Sodium (Mefoxin) 2 gm 1X PREOP ONCE IVP 06/22/19 11:30 06/22/19 11:31 DC 06/22/19 11:37 Potassium Phosphate 13.6 mmol/Magnesium Sulfate 5 meq/ Calcium Gluconate 20 meq/ Multivitamins 10 ml/Chromium/ Copper/Manganese/ Seleni/Zn 0.5 ml/ Total Parenteral Nutrition/Amino Acids/Dextrose/ Fat Emulsion Intravenous 1,920 ml @ 80 mls/hr TPN CONT IV 06/22/19 22:00 06/23/19 21:59 06/22/19 22:14 Cellulose (Surgicel Hemostat 4x8) 1 each STK-MED ONCE .ROUTE 06/22/19 13:14 06/22/19 13:14 DC 06/22/19 12:46 Cellulose (Surgicel Hemostat 4x8) 1 each STK-MED ONCE TP 06/22/19 12:46 06/22/19 14:25 DC 06/22/19 12:46 Cellulose (Surgicel Hemostat 4x8) 1 each STK-MED ONCE TP 06/22/19 12:46 06/22/19 14:25 DC 06/22/19 12:46 Vecuronium [place] 50 mg/ Miscellaneous 50 ml @ 4.925 mls/ hr CONT PRN IV SEE PROTOCOL 06/22/19 15:00 06/23/19 05:34 Enoxaparin Sodium (Lovenox 40mg Syringe) 40 mg Q24H SQ 06/23/19 06:00 06/23/19 05:38 Ringer's Solution 1,000 ml @ 100 mls/hr Q10H IV 06/22/19 15:39 06/23/19 02:09 Sodium Bicarbonate (Sodium Bicarb Adult 8.4% Syr) 50 meq 1X ONCE IV 06/22/19 19:45 06/22/19 19:57 DC 06/22/19 20:37 Dextrose (Dextrose 50%-Water Syringe) 25 gm 1X ONCE IV 06/22/19 19:45 06/22/19 19:57 DC 06/22/19 20:37 Insulin Human Regular (HumuLIN R VIAL) 10 unit 1X ONCE IV 06/22/19 19:45 06/22/19 19:57 DC 06/22/19 20:45 Calcium Gluconate 1000 mg/Sodium Chloride 110 ml @ 220 mls/hr 1X ONCE IV 06/22/19 20:15 06/22/19 20:44 DC 06/22/19 20:36 Hemodynamically unstable?: Yes Is patient in severe pain?: Yes Is NPO status required?: Yes JUSTIN WORKMAN III DO Jun 23, 2019 11:19
--- NOTE | 2019-06-23 13:07 | PDOC ---
PULMONARY PROGRESS NOTES Subjective remains on [facility]. ventilation, intubated , s/p trach 06/21 no overnight concerns from nursing reg pulmonary status Vitals Vital Signs Date Time Temp Pulse Resp B/P (MAP) Pulse Ox O2 Delivery O2 Flow Rate FiO2 06/23/19 12:01 96 Ventilator 06/23/19 12:00 115 06/23/19 11:00 99.7 18 99.7 Comments sedated Lungs: Clear Cardiovascular: S1, S2 Abdomen: Other (/distended/firm ) Extremities: No Edema Skin: Warm Labs Laboratory Tests Test 06/21/19 14:18 06/21/19 17:07 06/21/19 19:50 06/21/19 23:29 Glucose (Fingerstick) 323 mg/dL (70-99) 315 mg/dL (70-99) 303 mg/dL (70-99) 306 mg/dL (70-99) Test 06/22/19 03:52 06/22/19 05:40 06/22/19 08:20 06/22/19 08:56 Glucose (Fingerstick) 320 mg/dL (70-99) 95 mg/dL (70-99) White Blood Count 18.0 x10^3/uL (4.0-11.0) Red Blood Count 3.34 x10^6/uL (4.30-5.70) Hemoglobin 9.6 g/dL (13.0-17.5) Hematocrit 30.2 % (39.0-53.0) Mean Corpuscular Volume 90 fL (79-100) Mean Corpuscular Hemoglobin 29 pg (25-35) Mean Corpuscular Hemoglobin Concent 32 g/dL (31-37) Red Cell Distribution Width 14.4 % (11.5-14.5) Platelet Count 286 x10^3/uL (140-400) Neutrophils (%) (Auto) 94 % (31-73) Lymphocytes (%) (Auto) 2 % (24-48) Monocytes (%) (Auto) 3 % (0-9) Eosinophils (%) (Auto) 0 % (0-3) Basophils (%) (Auto) 0 % (0-3) Neutrophils # (Auto) 17.0 x10^3/uL (1.8-7.7) Lymphocytes # (Auto) 0.4 x10^3/uL (1.0-4.8) Monocytes # (Auto) 0.6 x10^3/uL (0.0-1.1) Eosinophils # (Auto) 0.0 x10^3/uL (0.0-0.7) Basophils # (Auto) 0.0 x10^3/uL (0.0-0.2) Sodium Level 152 mmol/L (136-145) Potassium Level 4.8 mmol/L (3.5-5.1) Chloride Level 116 mmol/L (98-107) Carbon Dioxide Level 28 mmol/L (21-32) Anion Gap 8 (6-14) Blood Urea Nitrogen 33 mg/dL (8-26) Creatinine 1.4 mg/dL (0.7-1.3) Estimated GFR (Cockcroft-Gault) 65.2 Glucose Level 364 mg/dL (70-99) Calcium Level 8.1 mg/dL (8.5-10.1) Phosphorus Level 2.7 mg/dL (2.6-4.7) Magnesium Level 2.0 mg/dL (1.8-2.4) Lipase 219 U/L (73-393) O2 Saturation 98 % (92-99) Arterial Blood pH 7.41 (7.35-7.45) Arterial Blood pCO2 at Patient Temp 40 mmHg (35-46) Arterial Blood pO2 at Patient Temp 120 mmHg (75-108) Arterial Blood HCO3 24 mmol/L (21-28) Arterial Blood Base Excess 0 mmol/L (-3-3) FiO2 40 Test 06/22/19 16:16 06/22/19 17:00 06/22/19 19:55 06/22/19 20:28 White Blood Count 19.3 x10^3/uL (4.0-11.0) Red Blood Count 3.41 x10^6/uL (4.30-5.70) Hemoglobin 9.8 g/dL (13.0-17.5) Hematocrit 31.0 % (39.0-53.0) Mean Corpuscular Volume 91 fL (79-100) Mean Corpuscular Hemoglobin 29 pg (25-35) Mean Corpuscular Hemoglobin Concent 32 g/dL (31-37) Red Cell Distribution Width 14.8 % (11.5-14.5) Platelet Count 285 x10^3/uL (140-400) Neutrophils (%) (Auto) 94 % (31-73) Lymphocytes (%) (Auto) 2 % (24-48) Monocytes (%) (Auto) 4 % (0-9) Eosinophils (%) (Auto) 0 % (0-3) Basophils (%) (Auto) 1 % (0-3) Neutrophils # (Auto) 18.1 x10^3/uL (1.8-7.7) Lymphocytes # (Auto) 0.4 x10^3/uL (1.0-4.8) Monocytes # (Auto) 0.7 x10^3/uL (0.0-1.1) Eosinophils # (Auto) 0.0 x10^3/uL (0.0-0.7) Basophils # (Auto) 0.1 x10^3/uL (0.0-0.2) Segmented Neutrophils % 76 % (35-66) Band Neutrophils % 18 % (0-9) Lymphocytes % 5 % (24-48) Monocytes % 1 % (0-10) Toxic Granulation Mod Platelet Estimate Adequate (ADEQUATE) Polychromasia Slight Hypochromasia Slight Anisocytosis Slight Sodium Level 152 mmol/L (136-145) Potassium Level 5.7 mmol/L (3.5-5.1) Chloride Level 115 mmol/L (98-107) Carbon Dioxide Level 28 mmol/L (21-32) Anion Gap 9 (6-14) Blood Urea Nitrogen 33 mg/dL (8-26) Creatinine 1.5 mg/dL (0.7-1.3) Estimated GFR (Cockcroft-Gault) 60.2 Glucose Level 356 mg/dL (70-99) Calcium Level 7.4 mg/dL (8.5-10.1) Glucose (Fingerstick) 327 mg/dL (70-99) 349 mg/dL (70-99) O2 Saturation 98 % (92-99) Arterial Blood pH 7.45 (7.35-7.45) Arterial Blood pCO2 at Patient Temp 35 mmHg (35-46) Arterial Blood pO2 at Patient Temp 132 mmHg (75-108) Arterial Blood HCO3 23 mmol/L (21-28) Arterial Blood Base Excess 0 mmol/L (-3-3) FiO2 40 Test 06/22/19 23:48 06/23/19 03:48 06/23/19 05:25 06/23/19 07:40 Glucose (Fingerstick) 372 mg/dL (70-99) 358 mg/dL (70-99) White Blood Count 19.1 x10^3/uL (4.0-11.0) Red Blood Count 3.13 x10^6/uL (4.30-5.70) Hemoglobin 9.1 g/dL (13.0-17.5) Hematocrit 28.3 % (39.0-53.0) Mean Corpuscular Volume 91 fL (79-100) Mean Corpuscular Hemoglobin 29 pg (25-35) Mean Corpuscular Hemoglobin Concent 32 g/dL (31-37) Red Cell Distribution Width 14.7 % (11.5-14.5) Platelet Count 261 x10^3/uL (140-400) Neutrophils (%) (Auto) 93 % (31-73) Lymphocytes (%) (Auto) 3 % (24-48) Monocytes (%) (Auto) 4 % (0-9) Eosinophils (%) (Auto) 0 % (0-3) Basophils (%) (Auto) 0 % (0-3) Neutrophils # (Auto) 17.7 x10^3/uL (1.8-7.7) Lymphocytes # (Auto) 0.5 x10^3/uL (1.0-4.8) Monocytes # (Auto) 0.8 x10^3/uL (0.0-1.1) Eosinophils # (Auto) 0.0 x10^3/uL (0.0-0.7) Basophils # (Auto) 0.0 x10^3/uL (0.0-0.2) Sodium Level 151 mmol/L (136-145) Potassium Level 5.2 mmol/L (3.5-5.1) Chloride Level 116 mmol/L (98-107) Carbon Dioxide Level 29 mmol/L (21-32) Anion Gap 6 (6-14) Blood Urea Nitrogen 45 mg/dL (8-26) Creatinine 1.6 mg/dL (0.7-1.3) Estimated GFR (Cockcroft-Gault) 55.9 BUN/Creatinine Ratio 28 (6-20) Glucose Level 395 mg/dL (70-99) Calcium Level 7.7 mg/dL (8.5-10.1) Phosphorus Level 3.4 mg/dL (2.6-4.7) Magnesium Level 2.0 mg/dL (1.8-2.4) Total Bilirubin 3.4 mg/dL (0.2-1.0) Aspartate Amino Transf (AST/SGOT) 55 U/L (15-37) Alanine Aminotransferase (ALT/SGPT) 49 U/L (16-63) Alkaline Phosphatase 111 U/L (46-116) Total Protein 5.2 g/dL (6.4-8.2) Albumin 1.3 g/dL (3.4-5.0) Albumin/Globulin Ratio 0.3 (1.0-1.7) Triglycerides Level 286 mg/dL (0-150) O2 Saturation 94 % (92-99) Arterial Blood pH 7.29 (7.35-7.45) Arterial Blood pCO2 at Patient Temp 55 mmHg (35-46) Arterial Blood pO2 at Patient Temp 93 mmHg (75-108) Arterial Blood HCO3 26 mmol/L (21-28) Arterial Blood Base Excess -1 mmol/L (-3-3) FiO2 40 Test 06/23/19 08:04 06/23/19 12:06 Glucose (Fingerstick) 331 mg/dL (70-99) 354 mg/dL (70-99) Laboratory Tests Test 06/22/19 16:16 06/22/19 17:00 06/22/19 19:55 06/22/19 20:28 White Blood Count 19.3 x10^3/uL (4.0-11.0) Red Blood Count 3.41 x10^6/uL (4.30-5.70) Hemoglobin 9.8 g/dL (13.0-17.5) Hematocrit 31.0 % (39.0-53.0) Mean Corpuscular Volume 91 fL (79-100) Mean Corpuscular Hemoglobin 29 pg (25-35) Mean Corpuscular Hemoglobin Concent 32 g/dL (31-37) Red Cell Distribution Width 14.8 % (11.5-14.5) Platelet Count 285 x10^3/uL (140-400) Neutrophils (%) (Auto) 94 % (31-73) Lymphocytes (%) (Auto) 2 % (24-48) Monocytes (%) (Auto) 4 % (0-9) Eosinophils (%) (Auto) 0 % (0-3) Basophils (%) (Auto) 1 % (0-3) Neutrophils # (Auto) 18.1 x10^3/uL (1.8-7.7) Lymphocytes # (Auto) 0.4 x10^3/uL (1.0-4.8) Monocytes # (Auto) 0.7 x10^3/uL (0.0-1.1) Eosinophils # (Auto) 0.0 x10^3/uL (0.0-0.7) Basophils # (Auto) 0.1 x10^3/uL (0.0-0.2) Segmented Neutrophils % 76 % (35-66) Band Neutrophils % 18 % (0-9) Lymphocytes % 5 % (24-48) Monocytes % 1 % (0-10) Toxic Granulation Mod Platelet Estimate Adequate (ADEQUATE) Polychromasia Slight Hypochromasia Slight Anisocytosis Slight Sodium Level 152 mmol/L (136-145) Potassium Level 5.7 mmol/L (3.5-5.1) Chloride Level 115 mmol/L (98-107) Carbon Dioxide Level 28 mmol/L (21-32) Anion Gap 9 (6-14) Blood Urea Nitrogen 33 mg/dL (8-26) Creatinine 1.5 mg/dL (0.7-1.3) Estimated GFR (Cockcroft-Gault) 60.2 Glucose Level 356 mg/dL (70-99) Calcium Level 7.4 mg/dL (8.5-10.1) Glucose (Fingerstick) 327 mg/dL (70-99) 349 mg/dL (70-99) O2 Saturation 98 % (92-99) Arterial Blood pH 7.45 (7.35-7.45) Arterial Blood pCO2 at Patient Temp 35 mmHg (35-46) Arterial Blood pO2 at Patient Temp 132 mmHg (75-108) Arterial Blood HCO3 23 mmol/L (21-28) Arterial Blood Base Excess 0 mmol/L (-3-3) FiO2 40 Test 06/22/19 23:48 06/23/19 03:48 06/23/19 05:25 06/23/19 07:40 Glucose (Fingerstick) 372 mg/dL (70-99) 358 mg/dL (70-99) White Blood Count 19.1 x10^3/uL (4.0-11.0) Red Blood Count 3.13 x10^6/uL (4.30-5.70) Hemoglobin 9.1 g/dL (13.0-17.5) Hematocrit 28.3 % (39.0-53.0) Mean Corpuscular Volume 91 fL (79-100) Mean Corpuscular Hemoglobin 29 pg (25-35) Mean Corpuscular Hemoglobin Concent 32 g/dL (31-37) Red Cell Distribution Width 14.7 % (11.5-14.5) Platelet Count 261 x10^3/uL (140-400) Neutrophils (%) (Auto) 93 % (31-73) Lymphocytes (%) (Auto) 3 % (24-48) Monocytes (%) (Auto) 4 % (0-9) Eosinophils (%) (Auto) 0 % (0-3) Basophils (%) (Auto) 0 % (0-3) Neutrophils # (Auto) 17.7 x10^3/uL (1.8-7.7) Lymphocytes # (Auto) 0.5 x10^3/uL (1.0-4.8) Monocytes # (Auto) 0.8 x10^3/uL (0.0-1.1) Eosinophils # (Auto) 0.0 x10^3/uL (0.0-0.7) Basophils # (Auto) 0.0 x10^3/uL (0.0-0.2) Sodium Level 151 mmol/L (136-145) Potassium Level 5.2 mmol/L (3.5-5.1) Chloride Level 116 mmol/L (98-107) Carbon Dioxide Level 29 mmol/L (21-32) Anion Gap 6 (6-14) Blood Urea Nitrogen 45 mg/dL (8-26) Creatinine 1.6 mg/dL (0.7-1.3) Estimated GFR (Cockcroft-Gault) 55.9 BUN/Creatinine Ratio 28 (6-20) Glucose Level 395 mg/dL (70-99) Calcium Level 7.7 mg/dL (8.5-10.1) Phosphorus Level 3.4 mg/dL (2.6-4.7) Magnesium Level 2.0 mg/dL (1.8-2.4) Total Bilirubin 3.4 mg/dL (0.2-1.0) Aspartate Amino Transf (AST/SGOT) 55 U/L (15-37) Alanine Aminotransferase (ALT/SGPT) 49 U/L (16-63) Alkaline Phosphatase 111 U/L (46-116) Total Protein 5.2 g/dL (6.4-8.2) Albumin 1.3 g/dL (3.4-5.0) Albumin/Globulin Ratio 0.3 (1.0-1.7) Triglycerides Level 286 mg/dL (0-150) O2 Saturation 94 % (92-99) Arterial Blood pH 7.29 (7.35-7.45) Arterial Blood pCO2 at Patient Temp 55 mmHg (35-46) Arterial Blood pO2 at Patient Temp 93 mmHg (75-108) Arterial Blood HCO3 26 mmol/L (21-28) Arterial Blood Base Excess -1 mmol/L (-3-3) FiO2 40 Test 06/23/19 08:04 06/23/19 12:06 Glucose (Fingerstick) 331 mg/dL (70-99) 354 mg/dL (70-99) Medications Active Scripts Medications Dose Route/Sig Max Daily Dose Days Date Category Comments 8CX reviewed no change ct abdomen 06/21 report reviewed Impression . IMPRESSION: 1. Acute hypoxemic respiratory failure, multifactorial. 2. Acute gallstone pancreatitis./ Necrosis. s/p Exploratory laparotomy, pancreatic necrosectomy, cholecystostomy tube placement, Gastrostomy placement with jejunal extension, tracheostomy placement (specifically 8 shiley cuffed) 06/21 3. Acute kidney failure. improving 4. Metabolic toxic encephalopathy. 5. Hyperkalemia.corrected 6. Metabolic / respiratory acidosis 7. Hypocalcemia. 8. POSSIBLE ABD COMPARTMENT SYNDROME , s/p Exp lap 9. HEP B S POSITIVE 10. Hypernatremia 11. LLL small effusion, monitor Plan . AC mode PRN suctioning, NEBS Pain control: fent gtt Follow CXR/ABG ABX per ID ct abdomen report reviewed 06/21. Follow surgery recs Once stable in next 24 hrs , will start weaning sedation and assess for CPAP trial TPN per surgery d/w in detail cct 30 min D/W RN/RT TAYA PEREIRA MD Jun 23, 2019 13:07
[2019-06-23] MEDS: INSULIN REGULAR VIAL 100 UNIT in IV NORMAL SALINE 100ML 100 ML IV PRN ×2 (13:19→20:06)
[2019-06-23] MEDS: TPN PER PHARMACY MC PRN (13:40)
--- NOTE | 2019-06-23 13:48 | NUR ---
Pharmacy TPN Dosing Note S: CHRISTOPHER NEWSOME is a 49 year old M Currently receiving Central Continuous TPN started 06/19/19 B:Pertinent PMH: PANCREATITIS Height: 5 feet, 9 inches Weight: 102.926000 kg Current diet: NPO LABS: Sodium: 151 Potassium: 5.2 Chloride: 116 Calcium: 7.7 Corrected Calcium: 9.86 Magnesium: 2 CO2: 28 SCr: 1.4 Glucose: 395 Albumin: 1.3 AST: 55 ALT: 49 TPN FORMULA: TPN TYPE: Central Continuous AMINO ACIDS: 145 gm DEXTROSE: 200 gm LIPIDS: 10 gm SODIUM CHLORIDE: mEq SODIUM ACETATE: mEq SODIUM PHOSPHATE: 10 mmol POTASSIUM CHLORIDE: mEq POTASSIUM ACETATE: mEq POTASSIUM PHOSPHATE: 13.6 mmol MAGNESIUM: 5 mEq CALCIUM: 15 mEq INSULIN: 10 units MULTIPLE VITAMIN: 10 ml TRACE ELEMENTS: MTE 5 0.5 ml(s) TPN PLAN: add 10 units insulin to tpn (ss35 units last 24hrs on top of scheduled doses. R: Continue TPN AT 80 ML/HR Will monitor electrolytes, glucose, and tolerance to TPN. [facility], 06/23/19 1349
--- NOTE | 2019-06-23 14:25 | NUR ---
Wound Care Pt seen for wound care consultation re: application of an incisional vac to midline abdominal incision. MAI Sherman, stated that WCRNs could proceed with applying vac at this time. Abdominal dressings and drain sponges removed, all areas cleaned with chloroprep scrubs and allowed to dry. Midline abdominal incision approximated, with small amount of drainage along incision line, and moderate amount from base of distal abdomen. Vac drape "window paned" around incision, contact layer applied over incision line, then silver vac foam applied over contact layer, drape applied, vac showing strong seal at -125 mmHg continuous suction. Will f/u with Dr. Dawson re: frequency of vac change. Split gauze sponges applied around all drains and lightly taped. Did not turn or reposition pt at this time d/t critical nature, heels checked and clear, Rooke boots applied bilaterally and heels floated. Will continue to follow for vac management.
[2019-06-23] MEDS: IV NORMAL SALINE 1000ML BAG 1,000 ML IV SCH (15:39)
--- NOTE | 2019-06-23 15:57 | NUR ---
SS following up with discharge planning. Pt accepted at [facility], ; fax [phone]. Per [facility], pt needs to be on the vent for 21 days and trach for 7 days. Pt received trach on 06/22/2019. SS phoned and faxed clinical updates to [facility]. SS will continue to follow for discharge planning.
[2019-06-23] MEDS: INSULIN GLARGINE SYRINGE. SQ SCH (21:00)
[2019-06-23] MEDS ORDERED: TOTAL PARENTERAL NUTRITION IV SCH ×9 (22:00)
[2019-06-23] MEDS ORDERED: DEXTROSE 70% IV SCH ×9 (22:00)
[2019-06-23] MEDS ORDERED: [UNRECOGNIZED DRUG - OTHER] IV SCH ×9 (22:00)
[2019-06-23] MEDS ORDERED: AMINO ACID IV SCH ×9 (22:00)
[2019-06-24] VITALS (24 sets, daily range): BP systolic 121–198; BP diastolic 48–86
[2019-06-24] MEDS: MEROPENEM 500 MG in IV NORMAL SALINE 50ML 50 ML IV SCH ×4 (00:17→18:00)
[2019-06-24] MEDS: VECURONIUM BROMIDE 50 MG in TOTAL VOLUME 50 ML IV PRN ×4 (00:28→20:38)
[2019-06-24] MEDS: INSULIN LISPRO 300 UNITS/3 ML VIAL. SQ SCH ×6 (04:00→20:00)
[2019-06-24 05:52] LABS: BASO # 0.1 x10^3/uL (0.0-0.2); BASO % 0 % (0-3); EOS # 0.1 x10^3/uL (0.0-0.7); EOS % 0 % (0-3); HEMATOCRIT 26.8 % (39.0-53.0); HEMOGLOBIN 8.4 g/dL (13.0-17.5); LYMPH # 0.7 x10^3/uL (1.0-4.8); LYMPH % 4 % (24-48); MEAN CORPUSCULAR HEMOGLOBIN 29 pg (25-35); MEAN CORPUSCULAR HGB CONC 31 g/dL (31-37); MEAN CORPUSCULAR VOLUME 92 fL (79-100); MONO # 1.1 x10^3/uL (0.0-1.1); MONO % 7 % (0-9); NEUT # 14.2 x10^3/uL (1.8-7.7); NEUT % 88 % (31-73); PLATELET COUNT 233 x10^3/uL (140-400); RED BLOOD COUNT 2.91 x10^6/uL (4.30-5.70); RED CELL DISTRIBUTION WIDTH 14.8 % (11.5-14.5); WHITE BLOOD COUNT 16.1 x10^3/uL (4.0-11.0)
[2019-06-24] MEDS: PANTOPRAZOLE IV PUSH 40 MG VIAL. IVP SCH ×2 (05:52→18:00)
[2019-06-24] MEDS: ENOXAPARIN 40 MG/0.4 ML SYRINGE. SQ SCH (05:53)
[2019-06-24] MEDS: MIDAZOLAM HCL 50 MG in IV NORMAL SALINE 50ML 50 ML IV PRN ×2 (05:54→12:19)
[2019-06-24 06:07] LABS: CALCIUM 7.7 mg/dL (8.5-10.1); CREATININE 1.5 mg/dL (0.7-1.3); GFR 60.2; MAGNESIUM 2.1 mg/dL (1.8-2.4); POTASSIUM 5.4 mmol/L (3.5-5.1)
[2019-06-24] MEDS: IV RINGERS,LACTATED 1000ML 1,000 ML IV SCH ×2 (07:39→17:39)
--- NOTE | 2019-06-24 07:45 | PDOC ---
Infectious Disease Note Subjective Subjective sedated on vent ROS ROS no n/v/d/fever Vital Sign Vital Signs Vital Signs Date Time Temp Pulse Resp B/P (MAP) Pulse Ox O2 Delivery O2 Flow Rate FiO2 06/24/19 06:24 97 3.0 06/24/19 06:03 Ventilator 06/24/19 06:00 99.3 114 18 146/58 (87) 99.3 Physical Exam PHYSICAL EXAM GENERAL: Sedated, orally intubated on vent, mitts, under cooling blanket HEENT: Pupils equal, small. OGT/ETT in place NECK: Supple no JVD LUNGS: Diminished aeration bases HEART: S1, S2, regular, no murmurs. ABDOMEN: Distended, fairly tight, bowel sounds hypoactive : [place] EXTREMITIES: Trace edema, no cyanosis. SCDs bilaterally SKIN: Warm, dry. 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 & RIJ/HD catheter (06/19) Labs Lab Laboratory Tests Test 06/23/19 08:04 06/23/19 12:06 06/23/19 14:42 06/23/19 15:38 Glucose (Fingerstick) 331 mg/dL (70-99) 354 mg/dL (70-99) 354 mg/dL (70-99) 344 mg/dL (70-99) Test 06/23/19 16:37 06/23/19 17:39 06/23/19 18:45 06/23/19 20:12 Glucose (Fingerstick) 245 mg/dL (70-99) 272 mg/dL (70-99) 238 mg/dL (70-99) 192 mg/dL (70-99) Test 06/23/19 21:17 06/23/19 22:18 06/23/19 23:20 06/24/19 00:25 Glucose (Fingerstick) 168 mg/dL (70-99) 157 mg/dL (70-99) 165 mg/dL (70-99) 148 mg/dL (70-99) Test 06/24/19 01:29 06/24/19 02:40 06/24/19 03:54 06/24/19 05:00 Glucose (Fingerstick) 132 mg/dL (70-99) 148 mg/dL (70-99) 154 mg/dL (70-99) 146 mg/dL (70-99) Test 06/24/19 05:15 White Blood Count 16.1 x10^3/uL (4.0-11.0) Red Blood Count 2.91 x10^6/uL (4.30-5.70) Hemoglobin 8.4 g/dL (13.0-17.5) Hematocrit 26.8 % (39.0-53.0) Mean Corpuscular Volume 92 fL (79-100) Mean Corpuscular Hemoglobin 29 pg (25-35) Mean Corpuscular Hemoglobin Concent 31 g/dL (31-37) Red Cell Distribution Width 14.8 % (11.5-14.5) Platelet Count 233 x10^3/uL (140-400) Neutrophils (%) (Auto) 88 % (31-73) Lymphocytes (%) (Auto) 4 % (24-48) Monocytes (%) (Auto) 7 % (0-9) Eosinophils (%) (Auto) 0 % (0-3) Basophils (%) (Auto) 0 % (0-3) Neutrophils # (Auto) 14.2 x10^3/uL (1.8-7.7) Lymphocytes # (Auto) 0.7 x10^3/uL (1.0-4.8) Monocytes # (Auto) 1.1 x10^3/uL (0.0-1.1) Eosinophils # (Auto) 0.1 x10^3/uL (0.0-0.7) Basophils # (Auto) 0.1 x10^3/uL (0.0-0.2) Sodium Level 153 mmol/L (136-145) Potassium Level 5.4 mmol/L (3.5-5.1) Chloride Level 117 mmol/L (98-107) Carbon Dioxide Level 32 mmol/L (21-32) Anion Gap 4 (6-14) Blood Urea Nitrogen 54 mg/dL (8-26) Creatinine 1.5 mg/dL (0.7-1.3) Estimated GFR (Cockcroft-Gault) 60.2 Glucose Level 170 mg/dL (70-99) Calcium Level 7.7 mg/dL (8.5-10.1) Magnesium Level 2.1 mg/dL (1.8-2.4) Micro Microbiology 06/20/19 Blood Culture - Preliminary, Resulted NO GROWTH AFTER 2 DAYS Objective Assessment Fever - improved Leukocytosis Gallbladder stone pancreatitis - lipase 475 06/15.- better. CT 06/15 - Fluid collection along the inferior aspect of the stomach measures 9.6 x 4.0 cm. Loculated fluid collection along the anterior aspect of the pancreas measures 3.0 x 2.6 cm -per surgery Sepsis from GI - cult neg Acute Resp failure - intubated Lactic acidosis. Acute kidney injury previously requiring dialysis - now with improved UOP, HDC (06/13) still in place Metabolic acidosis. Hypocalcemia Exploratory laparotomy, pancreatic necrosectomy, cholecystostomy tube placement, Gastrostomy placement with jejunal extension, tracheostomy placement 06/21 Plan Plan of Care Continue merrem, micafungin (06/19) and Zyvox( ) BC neg to date Maintain aspiration precaution. D/w nursing Critically ill KRISTIAN GOODMAN MD Jun 24, 2019 07:45
[2019-06-24] MEDS: ALBUTEROL SULFATE 2.5 MG/3 ML NEBU. NEB SCH ×4 (07:50→19:45)
[2019-06-24 08:00] LABS: BASE EXCESS ABG 1 mmol/L (-3-3); HCO3 ABG 29 mmol/L (21-28); PO2 ABG 86 mmHg (75-108); SAT O2 ABG 94 % (92-99)
--- NOTE | 2019-06-24 08:32 | RAD ---
PORTABLE CHEST 1V 06/24/2019 9:00 AM INDICATION: On ventilator COMPARISON: June 23, 2019 TECHNIQUE: Portable frontal view of the chest is provided. FINDINGS: The cardiomediastinal silhouette is similar in appearance. Right IJ central venous catheter, tracheostomy tube and right IJ double-lumen central venous catheter are in similar position. There is persistent leftward cardiac density which may represent atelectasis versus infiltrate. Small left pleural effusion with adjacent compressive atelectasis versus infiltrate. There is mild volume loss within the lungs. No new airspace consolidation. IMPRESSION: Aeration of the lungs appears similar to the prior examination. Support lines and tubes are in similar position. Electronically signed by: Danuta Pérez MD (06/24/2019 8:29 AM) [id number]
[2019-06-24 08:54] LABS: FIO2 ABG 40; PCO2 ABG 64 mmHg (35-46)
[2019-06-24] MEDS: INSULIN REGULAR VIAL 100 UNIT in IV NORMAL SALINE 100ML 100 ML IV PRN ×2 (09:31→21:07)
[2019-06-24] MEDS: CHLORHEXIDINE 0.12% 15 ML MOUTHWASH. MM SCH ×2 (09:39→20:38)
[2019-06-24] MEDS: MICAFUNGIN 100 MG in IV DEXTROSE 5% 100ML 100 ML IV SCH (09:39)
--- NOTE | 2019-06-24 09:48 | PDOC ---
Objective: Objective: D/w nurse. Vital Signs: Vital Signs Date Time Temp Pulse Resp B/P (MAP) Pulse Ox O2 Delivery O2 Flow Rate FiO2 06/24/19 09:31 98 3.0 06/24/19 09:23 Ventilator 06/24/19 06:00 99.3 114 18 146/58 (87) 99.3 Labs: Laboratory Tests Test 06/23/19 12:06 06/23/19 14:42 06/23/19 15:38 06/23/19 16:37 Glucose (Fingerstick) 354 mg/dL 354 mg/dL 344 mg/dL 245 mg/dL Test 06/23/19 17:39 06/23/19 18:45 06/23/19 20:12 06/23/19 21:17 Glucose (Fingerstick) 272 mg/dL 238 mg/dL 192 mg/dL 168 mg/dL Test 06/23/19 22:18 06/23/19 23:20 06/24/19 00:25 06/24/19 01:29 Glucose (Fingerstick) 157 mg/dL 165 mg/dL 148 mg/dL 132 mg/dL Test 06/24/19 02:40 06/24/19 03:54 06/24/19 05:00 06/24/19 05:15 Glucose (Fingerstick) 148 mg/dL 154 mg/dL 146 mg/dL White Blood Count 16.1 x10^3/uL Red Blood Count 2.91 x10^6/uL Hemoglobin 8.4 g/dL Hematocrit 26.8 % Mean Corpuscular Volume 92 fL Mean Corpuscular Hemoglobin 29 pg Mean Corpuscular Hemoglobin Concent 31 g/dL Red Cell Distribution Width 14.8 % Platelet Count 233 x10^3/uL Neutrophils (%) (Auto) 88 % Lymphocytes (%) (Auto) 4 % Monocytes (%) (Auto) 7 % Eosinophils (%) (Auto) 0 % Basophils (%) (Auto) 0 % Neutrophils # (Auto) 14.2 x10^3/uL Lymphocytes # (Auto) 0.7 x10^3/uL Monocytes # (Auto) 1.1 x10^3/uL Eosinophils # (Auto) 0.1 x10^3/uL Basophils # (Auto) 0.1 x10^3/uL Sodium Level 153 mmol/L Potassium Level 5.4 mmol/L Chloride Level 117 mmol/L Carbon Dioxide Level 32 mmol/L Anion Gap 4 Blood Urea Nitrogen 54 mg/dL Creatinine 1.5 mg/dL Estimated GFR (Cockcroft-Gault) 60.2 Glucose Level 170 mg/dL Calcium Level 7.7 mg/dL Magnesium Level 2.1 mg/dL Test 06/24/19 07:45 06/24/19 07:59 06/24/19 09:11 O2 Saturation 94 % Arterial Blood pH 7.27 Arterial Blood pCO2 at Patient Temp 64 mmHg Arterial Blood pO2 at Patient Temp 86 mmHg Arterial Blood HCO3 29 mmol/L Arterial Blood Base Excess 1 mmol/L FiO2 40 Glucose (Fingerstick) 139 mg/dL 125 mg/dL BLOOD CULTURE Preliminary NO GROWTH AFTER 4 DAYS Imaging: CXR 06/23 IMPRESSION: Aeration of the lungs appears similar to the prior examination. Support lines and tubes are in similar position. PE: GEN: intubated on TPN LUNGS: clear/tracheostomy HEART: RRR ABD: distended, tubes/drains NEURO/PSYCH: sedated A/P: S/p pancreatic necrosectomy -- Continue support. Hemodynamically unstable?: Yes Is patient in severe pain?: Yes Is NPO status required?: Yes PAXTON ALEXANDER Jun 24, 2019 09:48
--- NOTE | 2019-06-24 10:43 | PDOC ---
PULMONARY PROGRESS NOTES Subjective remains on [facility]. ventilation, intubated , s/p trach 06/21 no overnight concerns from nursing reg pulmonary status Vitals Vital Signs Date Time Temp Pulse Resp B/P (MAP) Pulse Ox O2 Delivery O2 Flow Rate FiO2 06/24/19 09:31 98 3.0 06/24/19 09:23 Ventilator 06/24/19 06:00 99.3 114 18 146/58 (87) 99.3 Comments sedated Lungs: Clear Cardiovascular: S1, S2 Abdomen: Other (/distended/firm ) Extremities: No Edema Skin: Warm Labs Laboratory Tests Test 06/22/19 16:16 06/22/19 17:00 06/22/19 19:55 06/22/19 20:28 White Blood Count 19.3 x10^3/uL (4.0-11.0) Red Blood Count 3.41 x10^6/uL (4.30-5.70) Hemoglobin 9.8 g/dL (13.0-17.5) Hematocrit 31.0 % (39.0-53.0) Mean Corpuscular Volume 91 fL (79-100) Mean Corpuscular Hemoglobin 29 pg (25-35) Mean Corpuscular Hemoglobin Concent 32 g/dL (31-37) Red Cell Distribution Width 14.8 % (11.5-14.5) Platelet Count 285 x10^3/uL (140-400) Neutrophils (%) (Auto) 94 % (31-73) Lymphocytes (%) (Auto) 2 % (24-48) Monocytes (%) (Auto) 4 % (0-9) Eosinophils (%) (Auto) 0 % (0-3) Basophils (%) (Auto) 1 % (0-3) Neutrophils # (Auto) 18.1 x10^3/uL (1.8-7.7) Lymphocytes # (Auto) 0.4 x10^3/uL (1.0-4.8) Monocytes # (Auto) 0.7 x10^3/uL (0.0-1.1) Eosinophils # (Auto) 0.0 x10^3/uL (0.0-0.7) Basophils # (Auto) 0.1 x10^3/uL (0.0-0.2) Segmented Neutrophils % 76 % (35-66) Band Neutrophils % 18 % (0-9) Lymphocytes % 5 % (24-48) Monocytes % 1 % (0-10) Toxic Granulation Mod Platelet Estimate Adequate (ADEQUATE) Polychromasia Slight Hypochromasia Slight Anisocytosis Slight Sodium Level 152 mmol/L (136-145) Potassium Level 5.7 mmol/L (3.5-5.1) Chloride Level 115 mmol/L (98-107) Carbon Dioxide Level 28 mmol/L (21-32) Anion Gap 9 (6-14) Blood Urea Nitrogen 33 mg/dL (8-26) Creatinine 1.5 mg/dL (0.7-1.3) Estimated GFR (Cockcroft-Gault) 60.2 Glucose Level 356 mg/dL (70-99) Calcium Level 7.4 mg/dL (8.5-10.1) Glucose (Fingerstick) 327 mg/dL (70-99) 349 mg/dL (70-99) O2 Saturation 98 % (92-99) Arterial Blood pH 7.45 (7.35-7.45) Arterial Blood pCO2 at Patient Temp 35 mmHg (35-46) Arterial Blood pO2 at Patient Temp 132 mmHg (75-108) Arterial Blood HCO3 23 mmol/L (21-28) Arterial Blood Base Excess 0 mmol/L (-3-3) FiO2 40 Test 06/22/19 23:48 06/23/19 03:48 06/23/19 05:25 06/23/19 07:40 Glucose (Fingerstick) 372 mg/dL (70-99) 358 mg/dL (70-99) White Blood Count 19.1 x10^3/uL (4.0-11.0) Red Blood Count 3.13 x10^6/uL (4.30-5.70) Hemoglobin 9.1 g/dL (13.0-17.5) Hematocrit 28.3 % (39.0-53.0) Mean Corpuscular Volume 91 fL (79-100) Mean Corpuscular Hemoglobin 29 pg (25-35) Mean Corpuscular Hemoglobin Concent 32 g/dL (31-37) Red Cell Distribution Width 14.7 % (11.5-14.5) Platelet Count 261 x10^3/uL (140-400) Neutrophils (%) (Auto) 93 % (31-73) Lymphocytes (%) (Auto) 3 % (24-48) Monocytes (%) (Auto) 4 % (0-9) Eosinophils (%) (Auto) 0 % (0-3) Basophils (%) (Auto) 0 % (0-3) Neutrophils # (Auto) 17.7 x10^3/uL (1.8-7.7) Lymphocytes # (Auto) 0.5 x10^3/uL (1.0-4.8) Monocytes # (Auto) 0.8 x10^3/uL (0.0-1.1) Eosinophils # (Auto) 0.0 x10^3/uL (0.0-0.7) Basophils # (Auto) 0.0 x10^3/uL (0.0-0.2) Sodium Level 151 mmol/L (136-145) Potassium Level 5.2 mmol/L (3.5-5.1) Chloride Level 116 mmol/L (98-107) Carbon Dioxide Level 29 mmol/L (21-32) Anion Gap 6 (6-14) Blood Urea Nitrogen 45 mg/dL (8-26) Creatinine 1.6 mg/dL (0.7-1.3) Estimated GFR (Cockcroft-Gault) 55.9 BUN/Creatinine Ratio 28 (6-20) Glucose Level 395 mg/dL (70-99) Calcium Level 7.7 mg/dL (8.5-10.1) Phosphorus Level 3.4 mg/dL (2.6-4.7) Magnesium Level 2.0 mg/dL (1.8-2.4) Total Bilirubin 3.4 mg/dL (0.2-1.0) Aspartate Amino Transf (AST/SGOT) 55 U/L (15-37) Alanine Aminotransferase (ALT/SGPT) 49 U/L (16-63) Alkaline Phosphatase 111 U/L (46-116) Total Protein 5.2 g/dL (6.4-8.2) Albumin 1.3 g/dL (3.4-5.0) Albumin/Globulin Ratio 0.3 (1.0-1.7) Triglycerides Level 286 mg/dL (0-150) O2 Saturation 94 % (92-99) Arterial Blood pH 7.29 (7.35-7.45) Arterial Blood pCO2 at Patient Temp 55 mmHg (35-46) Arterial Blood pO2 at Patient Temp 93 mmHg (75-108) Arterial Blood HCO3 26 mmol/L (21-28) Arterial Blood Base Excess -1 mmol/L (-3-3) FiO2 40 Test 06/23/19 08:04 06/23/19 12:06 06/23/19 14:42 06/23/19 15:38 Glucose (Fingerstick) 331 mg/dL (70-99) 354 mg/dL (70-99) 354 mg/dL (70-99) 344 mg/dL (70-99) Test 06/23/19 16:37 06/23/19 17:39 06/23/19 18:45 06/23/19 20:12 Glucose (Fingerstick) 245 mg/dL (70-99) 272 mg/dL (70-99) 238 mg/dL (70-99) 192 mg/dL (70-99) Test 06/23/19 21:17 06/23/19 22:18 06/23/19 23:20 06/24/19 00:25 Glucose (Fingerstick) 168 mg/dL (70-99) 157 mg/dL (70-99) 165 mg/dL (70-99) 148 mg/dL (70-99) Test 06/24/19 01:29 06/24/19 02:40 06/24/19 03:54 06/24/19 05:00 Glucose (Fingerstick) 132 mg/dL (70-99) 148 mg/dL (70-99) 154 mg/dL (70-99) 146 mg/dL (70-99) Test 06/24/19 05:15 06/24/19 07:45 06/24/19 07:59 06/24/19 09:11 White Blood Count 16.1 x10^3/uL (4.0-11.0) Red Blood Count 2.91 x10^6/uL (4.30-5.70) Hemoglobin 8.4 g/dL (13.0-17.5) Hematocrit 26.8 % (39.0-53.0) Mean Corpuscular Volume 92 fL (79-100) Mean Corpuscular Hemoglobin 29 pg (25-35) Mean Corpuscular Hemoglobin Concent 31 g/dL (31-37) Red Cell Distribution Width 14.8 % (11.5-14.5) Platelet Count 233 x10^3/uL (140-400) Neutrophils (%) (Auto) 88 % (31-73) Lymphocytes (%) (Auto) 4 % (24-48) Monocytes (%) (Auto) 7 % (0-9) Eosinophils (%) (Auto) 0 % (0-3) Basophils (%) (Auto) 0 % (0-3) Neutrophils # (Auto) 14.2 x10^3/uL (1.8-7.7) Lymphocytes # (Auto) 0.7 x10^3/uL (1.0-4.8) Monocytes # (Auto) 1.1 x10^3/uL (0.0-1.1) Eosinophils # (Auto) 0.1 x10^3/uL (0.0-0.7) Basophils # (Auto) 0.1 x10^3/uL (0.0-0.2) Sodium Level 153 mmol/L (136-145) Potassium Level 5.4 mmol/L (3.5-5.1) Chloride Level 117 mmol/L (98-107) Carbon Dioxide Level 32 mmol/L (21-32) Anion Gap 4 (6-14) Blood Urea Nitrogen 54 mg/dL (8-26) Creatinine 1.5 mg/dL (0.7-1.3) Estimated GFR (Cockcroft-Gault) 60.2 Glucose Level 170 mg/dL (70-99) Calcium Level 7.7 mg/dL (8.5-10.1) Magnesium Level 2.1 mg/dL (1.8-2.4) O2 Saturation 94 % (92-99) Arterial Blood pH 7.27 (7.35-7.45) Arterial Blood pCO2 at Patient Temp 64 mmHg (35-46) Arterial Blood pO2 at Patient Temp 86 mmHg (75-108) Arterial Blood HCO3 29 mmol/L (21-28) Arterial Blood Base Excess 1 mmol/L (-3-3) FiO2 40 Glucose (Fingerstick) 139 mg/dL (70-99) 125 mg/dL (70-99) Laboratory Tests Test 06/23/19 12:06 06/23/19 14:42 06/23/19 15:38 06/23/19 16:37 Glucose (Fingerstick) 354 mg/dL (70-99) 354 mg/dL (70-99) 344 mg/dL (70-99) 245 mg/dL (70-99) Test 06/23/19 17:39 06/23/19 18:45 06/23/19 20:12 06/23/19 21:17 Glucose (Fingerstick) 272 mg/dL (70-99) 238 mg/dL (70-99) 192 mg/dL (70-99) 168 mg/dL (70-99) Test 06/23/19 22:18 06/23/19 23:20 06/24/19 00:25 06/24/19 01:29 Glucose (Fingerstick) 157 mg/dL (70-99) 165 mg/dL (70-99) 148 mg/dL (70-99) 132 mg/dL (70-99) Test 06/24/19 02:40 06/24/19 03:54 06/24/19 05:00 06/24/19 05:15 Glucose (Fingerstick) 148 mg/dL (70-99) 154 mg/dL (70-99) 146 mg/dL (70-99) White Blood Count 16.1 x10^3/uL (4.0-11.0) Red Blood Count 2.91 x10^6/uL (4.30-5.70) Hemoglobin 8.4 g/dL (13.0-17.5) Hematocrit 26.8 % (39.0-53.0) Mean Corpuscular Volume 92 fL (79-100) Mean Corpuscular Hemoglobin 29 pg (25-35) Mean Corpuscular Hemoglobin Concent 31 g/dL (31-37) Red Cell Distribution Width 14.8 % (11.5-14.5) Platelet Count 233 x10^3/uL (140-400) Neutrophils (%) (Auto) 88 % (31-73) Lymphocytes (%) (Auto) 4 % (24-48) Monocytes (%) (Auto) 7 % (0-9) Eosinophils (%) (Auto) 0 % (0-3) Basophils (%) (Auto) 0 % (0-3) Neutrophils # (Auto) 14.2 x10^3/uL (1.8-7.7) Lymphocytes # (Auto) 0.7 x10^3/uL (1.0-4.8) Monocytes # (Auto) 1.1 x10^3/uL (0.0-1.1) Eosinophils # (Auto) 0.1 x10^3/uL (0.0-0.7) Basophils # (Auto) 0.1 x10^3/uL (0.0-0.2) Sodium Level 153 mmol/L (136-145) Potassium Level 5.4 mmol/L (3.5-5.1) Chloride Level 117 mmol/L (98-107) Carbon Dioxide Level 32 mmol/L (21-32) Anion Gap 4 (6-14) Blood Urea Nitrogen 54 mg/dL (8-26) Creatinine 1.5 mg/dL (0.7-1.3) Estimated GFR (Cockcroft-Gault) 60.2 Glucose Level 170 mg/dL (70-99) Calcium Level 7.7 mg/dL (8.5-10.1) Magnesium Level 2.1 mg/dL (1.8-2.4) Test 06/24/19 07:45 06/24/19 07:59 06/24/19 09:11 O2 Saturation 94 % (92-99) Arterial Blood pH 7.27 (7.35-7.45) Arterial Blood pCO2 at Patient Temp 64 mmHg (35-46) Arterial Blood pO2 at Patient Temp 86 mmHg (75-108) Arterial Blood HCO3 29 mmol/L (21-28) Arterial Blood Base Excess 1 mmol/L (-3-3) FiO2 40 Glucose (Fingerstick) 139 mg/dL (70-99) 125 mg/dL (70-99) Medications Active Scripts Medications Dose Route/Sig Max Daily Dose Days Date Category Comments 06/23 CXR reviewed no change / poor insp effort ct abdomen 06/21 report reviewed Impression . IMPRESSION: 1. Acute hypoxemic respiratory failure, multifactorial. 2. Acute gallstone pancreatitis./ Necrosis. s/p Exploratory laparotomy, pancreatic necrosectomy, cholecystostomy tube placement, Gastrostomy placement with jejunal extension, tracheostomy placement (specifically 8 shiley cuffed) 06/21 3. Acute kidney failure. improving 4. Metabolic toxic encephalopathy. 5. Hyperkalemia.corrected 6. Metabolic / respiratory acidosis 7. Hypocalcemia. 8. POSSIBLE ABD COMPARTMENT SYNDROME , s/p Exp lap 9. HEP B S POSITIVE 10. Hypernatremia 11. LLL small effusion, monitor Plan . AC mode PRN suctioning, NEBS Pain control: fent gtt Follow CXR/ABG ABX per ID ct abdomen report reviewed 06/21. Follow surgery recs Once stable in next 24 hrs , will start weaning sedation/ paralytics per surgery and assess for CPAP trial TPN per surgery D/W RN/RT TAYA PEREIRA MD Jun 24, 2019 10:43
--- NOTE | 2019-06-24 10:56 | PDOC ---
Renal-Progress Notes Subjective Notes Notes REMAINS INTUBATED History of Present Illness Hx of present illness STABLE Vitals Vitals Vital Signs Date Time Temp Pulse Resp B/P (MAP) Pulse Ox O2 Delivery O2 Flow Rate FiO2 06/24/19 09:31 98 3.0 06/24/19 09:23 Ventilator 06/24/19 06:00 99.3 114 18 146/58 (87) 99.3 Weight Weight [ ] I.O. Intake and Output Intake and Output 06/24/19 07:00 Intake Total 5667.6 ml Output Total 3142 ml Balance 2525.6 ml IV Total 5667.6 ml Output Urine Total 2365 ml Drainage Total 777 ml Labs Labs Laboratory Tests Test 06/23/19 12:06 06/23/19 14:42 06/23/19 15:38 06/23/19 16:37 Glucose (Fingerstick) 354 mg/dL (70-99) 354 mg/dL (70-99) 344 mg/dL (70-99) 245 mg/dL (70-99) Test 06/23/19 17:39 06/23/19 18:45 06/23/19 20:12 06/23/19 21:17 Glucose (Fingerstick) 272 mg/dL (70-99) 238 mg/dL (70-99) 192 mg/dL (70-99) 168 mg/dL (70-99) Test 06/23/19 22:18 06/23/19 23:20 06/24/19 00:25 06/24/19 01:29 Glucose (Fingerstick) 157 mg/dL (70-99) 165 mg/dL (70-99) 148 mg/dL (70-99) 132 mg/dL (70-99) Test 06/24/19 02:40 06/24/19 03:54 06/24/19 05:00 06/24/19 05:15 Glucose (Fingerstick) 148 mg/dL (70-99) 154 mg/dL (70-99) 146 mg/dL (70-99) White Blood Count 16.1 x10^3/uL (4.0-11.0) Red Blood Count 2.91 x10^6/uL (4.30-5.70) Hemoglobin 8.4 g/dL (13.0-17.5) Hematocrit 26.8 % (39.0-53.0) Mean Corpuscular Volume 92 fL (79-100) Mean Corpuscular Hemoglobin 29 pg (25-35) Mean Corpuscular Hemoglobin Concent 31 g/dL (31-37) Red Cell Distribution Width 14.8 % (11.5-14.5) Platelet Count 233 x10^3/uL (140-400) Neutrophils (%) (Auto) 88 % (31-73) Lymphocytes (%) (Auto) 4 % (24-48) Monocytes (%) (Auto) 7 % (0-9) Eosinophils (%) (Auto) 0 % (0-3) Basophils (%) (Auto) 0 % (0-3) Neutrophils # (Auto) 14.2 x10^3/uL (1.8-7.7) Lymphocytes # (Auto) 0.7 x10^3/uL (1.0-4.8) Monocytes # (Auto) 1.1 x10^3/uL (0.0-1.1) Eosinophils # (Auto) 0.1 x10^3/uL (0.0-0.7) Basophils # (Auto) 0.1 x10^3/uL (0.0-0.2) Sodium Level 153 mmol/L (136-145) Potassium Level 5.4 mmol/L (3.5-5.1) Chloride Level 117 mmol/L (98-107) Carbon Dioxide Level 32 mmol/L (21-32) Anion Gap 4 (6-14) Blood Urea Nitrogen 54 mg/dL (8-26) Creatinine 1.5 mg/dL (0.7-1.3) Estimated GFR (Cockcroft-Gault) 60.2 Glucose Level 170 mg/dL (70-99) Calcium Level 7.7 mg/dL (8.5-10.1) Magnesium Level 2.1 mg/dL (1.8-2.4) Test 06/24/19 07:45 06/24/19 07:59 06/24/19 09:11 O2 Saturation 94 % (92-99) Arterial Blood pH 7.27 (7.35-7.45) Arterial Blood pCO2 at Patient Temp 64 mmHg (35-46) Arterial Blood pO2 at Patient Temp 86 mmHg (75-108) Arterial Blood HCO3 29 mmol/L (21-28) Arterial Blood Base Excess 1 mmol/L (-3-3) FiO2 40 Glucose (Fingerstick) 139 mg/dL (70-99) 125 mg/dL (70-99) Micro Micro Microbiology 06/20/19 Blood Culture - Preliminary, Resulted NO GROWTH AFTER 4 DAYS Review of Systems Constitutional: yes: unresponsive Physical Exam General Appearance: no apparent distress Skin: warm Respiratory: decreased breath sounds Heart: S1S2 Abdomen: distension, other (NO BS) Genitourinary: bladder flat Extremities: pulses present Neurology: other (sedated) Assessment Assessment IMP FABIOLA - IMPROVED WITH CR OF 1.5-OFF HD NOW LEUCOCYTOSIS GB STONE PANCREATITIS ACUTE RESP FAILURE MET ACIDOSIS S/P EXP LAP AND THEN PANCREATIC NECROSECTOMY WITH DRAINS PLAN CONT TPN-CHANGES MADE CONT ANTIBIOTICS MONITOR RENAL FX HOPEFULLY NO FURTHER HD NEEDED D/C DIALYSIS LINE D/W DR PEREIRA POOR PROGNOSIS CHEESEMAKER WILL FOLLOW BERE QUIROZ MD Jun 24, 2019 10:56
--- NOTE | 2019-06-24 11:03 | PDOC ---
SURGICAL PROGRESS NOTE Subjective Pt intubated sedated Vital Signs Vital Signs Date Time Temp Pulse Resp B/P (MAP) Pulse Ox O2 Delivery O2 Flow Rate FiO2 06/24/19 09:31 98 3.0 06/24/19 09:23 Ventilator 06/24/19 06:00 99.3 114 18 146/58 (87) 99.3 I&O Intake and Output 06/24/19 07:00 Intake Total 5667.6 ml Output Total 3142 ml Balance 2525.6 ml IV Total 5667.6 ml Output Urine Total 2365 ml Drainage Total 777 ml PATIENT HAS A LEPE: Yes (accurate i and os) General: No acute distress Abdomen: Other (distended, tubes in place) Labs Laboratory Tests Test 06/22/19 16:16 06/22/19 17:00 06/22/19 19:55 06/22/19 20:28 White Blood Count 19.3 x10^3/uL (4.0-11.0) Red Blood Count 3.41 x10^6/uL (4.30-5.70) Hemoglobin 9.8 g/dL (13.0-17.5) Hematocrit 31.0 % (39.0-53.0) Mean Corpuscular Volume 91 fL (79-100) Mean Corpuscular Hemoglobin 29 pg (25-35) Mean Corpuscular Hemoglobin Concent 32 g/dL (31-37) Red Cell Distribution Width 14.8 % (11.5-14.5) Platelet Count 285 x10^3/uL (140-400) Neutrophils (%) (Auto) 94 % (31-73) Lymphocytes (%) (Auto) 2 % (24-48) Monocytes (%) (Auto) 4 % (0-9) Eosinophils (%) (Auto) 0 % (0-3) Basophils (%) (Auto) 1 % (0-3) Neutrophils # (Auto) 18.1 x10^3/uL (1.8-7.7) Lymphocytes # (Auto) 0.4 x10^3/uL (1.0-4.8) Monocytes # (Auto) 0.7 x10^3/uL (0.0-1.1) Eosinophils # (Auto) 0.0 x10^3/uL (0.0-0.7) Basophils # (Auto) 0.1 x10^3/uL (0.0-0.2) Segmented Neutrophils % 76 % (35-66) Band Neutrophils % 18 % (0-9) Lymphocytes % 5 % (24-48) Monocytes % 1 % (0-10) Toxic Granulation Mod Platelet Estimate Adequate (ADEQUATE) Polychromasia Slight Hypochromasia Slight Anisocytosis Slight Sodium Level 152 mmol/L (136-145) Potassium Level 5.7 mmol/L (3.5-5.1) Chloride Level 115 mmol/L (98-107) Carbon Dioxide Level 28 mmol/L (21-32) Anion Gap 9 (6-14) Blood Urea Nitrogen 33 mg/dL (8-26) Creatinine 1.5 mg/dL (0.7-1.3) Estimated GFR (Cockcroft-Gault) 60.2 Glucose Level 356 mg/dL (70-99) Calcium Level 7.4 mg/dL (8.5-10.1) Glucose (Fingerstick) 327 mg/dL (70-99) 349 mg/dL (70-99) O2 Saturation 98 % (92-99) Arterial Blood pH 7.45 (7.35-7.45) Arterial Blood pCO2 at Patient Temp 35 mmHg (35-46) Arterial Blood pO2 at Patient Temp 132 mmHg (75-108) Arterial Blood HCO3 23 mmol/L (21-28) Arterial Blood Base Excess 0 mmol/L (-3-3) FiO2 40 Test 06/22/19 23:48 06/23/19 03:48 06/23/19 05:25 06/23/19 07:40 Glucose (Fingerstick) 372 mg/dL (70-99) 358 mg/dL (70-99) White Blood Count 19.1 x10^3/uL (4.0-11.0) Red Blood Count 3.13 x10^6/uL (4.30-5.70) Hemoglobin 9.1 g/dL (13.0-17.5) Hematocrit 28.3 % (39.0-53.0) Mean Corpuscular Volume 91 fL (79-100) Mean Corpuscular Hemoglobin 29 pg (25-35) Mean Corpuscular Hemoglobin Concent 32 g/dL (31-37) Red Cell Distribution Width 14.7 % (11.5-14.5) Platelet Count 261 x10^3/uL (140-400) Neutrophils (%) (Auto) 93 % (31-73) Lymphocytes (%) (Auto) 3 % (24-48) Monocytes (%) (Auto) 4 % (0-9) Eosinophils (%) (Auto) 0 % (0-3) Basophils (%) (Auto) 0 % (0-3) Neutrophils # (Auto) 17.7 x10^3/uL (1.8-7.7) Lymphocytes # (Auto) 0.5 x10^3/uL (1.0-4.8) Monocytes # (Auto) 0.8 x10^3/uL (0.0-1.1) Eosinophils # (Auto) 0.0 x10^3/uL (0.0-0.7) Basophils # (Auto) 0.0 x10^3/uL (0.0-0.2) Sodium Level 151 mmol/L (136-145) Potassium Level 5.2 mmol/L (3.5-5.1) Chloride Level 116 mmol/L (98-107) Carbon Dioxide Level 29 mmol/L (21-32) Anion Gap 6 (6-14) Blood Urea Nitrogen 45 mg/dL (8-26) Creatinine 1.6 mg/dL (0.7-1.3) Estimated GFR (Cockcroft-Gault) 55.9 BUN/Creatinine Ratio 28 (6-20) Glucose Level 395 mg/dL (70-99) Calcium Level 7.7 mg/dL (8.5-10.1) Phosphorus Level 3.4 mg/dL (2.6-4.7) Magnesium Level 2.0 mg/dL (1.8-2.4) Total Bilirubin 3.4 mg/dL (0.2-1.0) Aspartate Amino Transf (AST/SGOT) 55 U/L (15-37) Alanine Aminotransferase (ALT/SGPT) 49 U/L (16-63) Alkaline Phosphatase 111 U/L (46-116) Total Protein 5.2 g/dL (6.4-8.2) Albumin 1.3 g/dL (3.4-5.0) Albumin/Globulin Ratio 0.3 (1.0-1.7) Triglycerides Level 286 mg/dL (0-150) O2 Saturation 94 % (92-99) Arterial Blood pH 7.29 (7.35-7.45) Arterial Blood pCO2 at Patient Temp 55 mmHg (35-46) Arterial Blood pO2 at Patient Temp 93 mmHg (75-108) Arterial Blood HCO3 26 mmol/L (21-28) Arterial Blood Base Excess -1 mmol/L (-3-3) FiO2 40 Test 06/23/19 08:04 06/23/19 12:06 06/23/19 14:42 06/23/19 15:38 Glucose (Fingerstick) 331 mg/dL (70-99) 354 mg/dL (70-99) 354 mg/dL (70-99) 344 mg/dL (70-99) Test 06/23/19 16:37 06/23/19 17:39 06/23/19 18:45 06/23/19 20:12 Glucose (Fingerstick) 245 mg/dL (70-99) 272 mg/dL (70-99) 238 mg/dL (70-99) 192 mg/dL (70-99) Test 06/23/19 21:17 06/23/19 22:18 06/23/19 23:20 06/24/19 00:25 Glucose (Fingerstick) 168 mg/dL (70-99) 157 mg/dL (70-99) 165 mg/dL (70-99) 148 mg/dL (70-99) Test 06/24/19 01:29 06/24/19 02:40 06/24/19 03:54 06/24/19 05:00 Glucose (Fingerstick) 132 mg/dL (70-99) 148 mg/dL (70-99) 154 mg/dL (70-99) 146 mg/dL (70-99) Test 06/24/19 05:15 06/24/19 07:45 06/24/19 07:59 06/24/19 09:11 White Blood Count 16.1 x10^3/uL (4.0-11.0) Red Blood Count 2.91 x10^6/uL (4.30-5.70) Hemoglobin 8.4 g/dL (13.0-17.5) Hematocrit 26.8 % (39.0-53.0) Mean Corpuscular Volume 92 fL (79-100) Mean Corpuscular Hemoglobin 29 pg (25-35) Mean Corpuscular Hemoglobin Concent 31 g/dL (31-37) Red Cell Distribution Width 14.8 % (11.5-14.5) Platelet Count 233 x10^3/uL (140-400) Neutrophils (%) (Auto) 88 % (31-73) Lymphocytes (%) (Auto) 4 % (24-48) Monocytes (%) (Auto) 7 % (0-9) Eosinophils (%) (Auto) 0 % (0-3) Basophils (%) (Auto) 0 % (0-3) Neutrophils # (Auto) 14.2 x10^3/uL (1.8-7.7) Lymphocytes # (Auto) 0.7 x10^3/uL (1.0-4.8) Monocytes # (Auto) 1.1 x10^3/uL (0.0-1.1) Eosinophils # (Auto) 0.1 x10^3/uL (0.0-0.7) Basophils # (Auto) 0.1 x10^3/uL (0.0-0.2) Sodium Level 153 mmol/L (136-145) Potassium Level 5.4 mmol/L (3.5-5.1) Chloride Level 117 mmol/L (98-107) Carbon Dioxide Level 32 mmol/L (21-32) Anion Gap 4 (6-14) Blood Urea Nitrogen 54 mg/dL (8-26) Creatinine 1.5 mg/dL (0.7-1.3) Estimated GFR (Cockcroft-Gault) 60.2 Glucose Level 170 mg/dL (70-99) Calcium Level 7.7 mg/dL (8.5-10.1) Magnesium Level 2.1 mg/dL (1.8-2.4) O2 Saturation 94 % (92-99) Arterial Blood pH 7.27 (7.35-7.45) Arterial Blood pCO2 at Patient Temp 64 mmHg (35-46) Arterial Blood pO2 at Patient Temp 86 mmHg (75-108) Arterial Blood HCO3 29 mmol/L (21-28) Arterial Blood Base Excess 1 mmol/L (-3-3) FiO2 40 Glucose (Fingerstick) 139 mg/dL (70-99) 125 mg/dL (70-99) Laboratory Tests Test 06/23/19 12:06 06/23/19 14:42 06/23/19 15:38 06/23/19 16:37 Glucose (Fingerstick) 354 mg/dL (70-99) 354 mg/dL (70-99) 344 mg/dL (70-99) 245 mg/dL (70-99) Test 06/23/19 17:39 06/23/19 18:45 06/23/19 20:12 06/23/19 21:17 Glucose (Fingerstick) 272 mg/dL (70-99) 238 mg/dL (70-99) 192 mg/dL (70-99) 168 mg/dL (70-99) Test 06/23/19 22:18 06/23/19 23:20 06/24/19 00:25 06/24/19 01:29 Glucose (Fingerstick) 157 mg/dL (70-99) 165 mg/dL (70-99) 148 mg/dL (70-99) 132 mg/dL (70-99) Test 06/24/19 02:40 06/24/19 03:54 06/24/19 05:00 06/24/19 05:15 Glucose (Fingerstick) 148 mg/dL (70-99) 154 mg/dL (70-99) 146 mg/dL (70-99) White Blood Count 16.1 x10^3/uL (4.0-11.0) Red Blood Count 2.91 x10^6/uL (4.30-5.70) Hemoglobin 8.4 g/dL (13.0-17.5) Hematocrit 26.8 % (39.0-53.0) Mean Corpuscular Volume 92 fL (79-100) Mean Corpuscular Hemoglobin 29 pg (25-35) Mean Corpuscular Hemoglobin Concent 31 g/dL (31-37) Red Cell Distribution Width 14.8 % (11.5-14.5) Platelet Count 233 x10^3/uL (140-400) Neutrophils (%) (Auto) 88 % (31-73) Lymphocytes (%) (Auto) 4 % (24-48) Monocytes (%) (Auto) 7 % (0-9) Eosinophils (%) (Auto) 0 % (0-3) Basophils (%) (Auto) 0 % (0-3) Neutrophils # (Auto) 14.2 x10^3/uL (1.8-7.7) Lymphocytes # (Auto) 0.7 x10^3/uL (1.0-4.8) Monocytes # (Auto) 1.1 x10^3/uL (0.0-1.1) Eosinophils # (Auto) 0.1 x10^3/uL (0.0-0.7) Basophils # (Auto) 0.1 x10^3/uL (0.0-0.2) Sodium Level 153 mmol/L (136-145) Potassium Level 5.4 mmol/L (3.5-5.1) Chloride Level 117 mmol/L (98-107) Carbon Dioxide Level 32 mmol/L (21-32) Anion Gap 4 (6-14) Blood Urea Nitrogen 54 mg/dL (8-26) Creatinine 1.5 mg/dL (0.7-1.3) Estimated GFR (Cockcroft-Gault) 60.2 Glucose Level 170 mg/dL (70-99) Calcium Level 7.7 mg/dL (8.5-10.1) Magnesium Level 2.1 mg/dL (1.8-2.4) Test 06/24/19 07:45 06/24/19 07:59 06/24/19 09:11 O2 Saturation 94 % (92-99) Arterial Blood pH 7.27 (7.35-7.45) Arterial Blood pCO2 at Patient Temp 64 mmHg (35-46) Arterial Blood pO2 at Patient Temp 86 mmHg (75-108) Arterial Blood HCO3 29 mmol/L (21-28) Arterial Blood Base Excess 1 mmol/L (-3-3) FiO2 40 Glucose (Fingerstick) 139 mg/dL (70-99) 125 mg/dL (70-99) Problem List Problems Medical Problems: (1) Acute pancreatitis Status: Acute (2) Nausea & vomiting Status: Acute Assessment/Plan s/p xlap cont supportive care hopefully wean vent in AM as well as paralytics. KARLA CALL MD Jun 24, 2019 11:03
--- NOTE | 2019-06-24 11:45 | PDOC ---
[employer] PROGRESS NOTE Chief Complaint Chief Complaint Acute hypoxemic respiratory failure, multifactorial. Status post tracheostomy 5 drains Acute gallstone pancreatitis./ Necrosis Acute kidney failure. improving Metabolic toxic encephalopathy. Hyperkalemia.corrected Metabolic / respiratory acidosis Hypocalcemia. Hepatitis B Hypernatremia LLL small effusion, monitor Exploratory laparotomy, pancreatic necrosectomy, cholecystostomy tube placement, Gastrostomy placement with jejunal extension, tracheostomy placement (specifically 8 shiley cuffed) Specimans Obtained: pancreatic necrosis, saponification, gallstones Findings: diffuse peritonitis, 1.5 liters of ascites, diffuse saponification, viable viscera, mulitiple gallstones, normal liver History of Present Illness History of Present Illness [id number] Patient seen and examined in the ICU He is on the ventilator and sedated and paralyzed Discussed with RN Discussed with his Chart reviewed Exploratory laparotomy, pancreatic necrosectomy, cholecystostomy tube placement, Gastrostomy placement with jejunal extension, tracheostomy placement (specific ally 8 shiley cuffed) 06/24/2019 Pt seen and examined in the ICU. Discussed with RN, Chart reviewed. Pt was sedated and currently being tried on room air. Ventilator setting as follows: AC/18/500/40% with peep of 5, but not in use during observation. Currently has [address] Vitals/I&O Vitals/I&O: Vital Signs Date Time Temp Pulse Resp B/P (MAP) Pulse Ox O2 Delivery O2 Flow Rate FiO2 06/24/19 09:31 98 3.0 06/24/19 09:23 Ventilator 06/24/19 08:00 116 06/24/19 06:00 99.3 18 99.3 I & O 06/23/19 06/23/19 06/24/19 15:00 23:00 07:00 Intake Total 450 ml 2741.6 ml 2476 ml Output Total 797 ml 1075 ml 1270 ml Balance -347 ml 1666.6 ml 1206 ml Physical Exam Physical Exam: GENERAL: Sedated, orally intubated on vent, mitts, under cooling blanket HEENT: Pupils equal, small. OGT/ETT in place NECK: Supple no JVD LUNGS: Diminished aeration bases HEART: S1, S2, regular, no murmurs. ABDOMEN: Distended, fairly tight, bowel sounds hypoactive : [place] EXTREMITIES: Trace edema, no cyanosis. SCDs bilaterally SKIN: Warm, dry. 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: Sedated RIJ & RIJ/HD catheter (06/19) General: No acute distress, Other (sedated currently) Heart: Other (ST, rate near 125-130) Lungs: Clear Abdomen: Other (distended, tubes in place) Extremities: No edema Skin: No significant lesion Labs Labs: Laboratory Tests Test 06/23/19 12:06 06/23/19 14:42 06/23/19 15:38 06/23/19 16:37 Glucose (Fingerstick) 354 mg/dL (70-99) 354 mg/dL (70-99) 344 mg/dL (70-99) 245 mg/dL (70-99) Test 06/23/19 17:39 06/23/19 18:45 06/23/19 20:12 06/23/19 21:17 Glucose (Fingerstick) 272 mg/dL (70-99) 238 mg/dL (70-99) 192 mg/dL (70-99) 168 mg/dL (70-99) Test 06/23/19 22:18 06/23/19 23:20 06/24/19 00:25 06/24/19 01:29 Glucose (Fingerstick) 157 mg/dL (70-99) 165 mg/dL (70-99) 148 mg/dL (70-99) 132 mg/dL (70-99) Test 06/24/19 02:40 06/24/19 03:54 06/24/19 05:00 06/24/19 05:15 Glucose (Fingerstick) 148 mg/dL (70-99) 154 mg/dL (70-99) 146 mg/dL (70-99) White Blood Count 16.1 x10^3/uL (4.0-11.0) Red Blood Count 2.91 x10^6/uL (4.30-5.70) Hemoglobin 8.4 g/dL (13.0-17.5) Hematocrit 26.8 % (39.0-53.0) Mean Corpuscular Volume 92 fL (79-100) Mean Corpuscular Hemoglobin 29 pg (25-35) Mean Corpuscular Hemoglobin Concent 31 g/dL (31-37) Red Cell Distribution Width 14.8 % (11.5-14.5) Platelet Count 233 x10^3/uL (140-400) Neutrophils (%) (Auto) 88 % (31-73) Lymphocytes (%) (Auto) 4 % (24-48) Monocytes (%) (Auto) 7 % (0-9) Eosinophils (%) (Auto) 0 % (0-3) Basophils (%) (Auto) 0 % (0-3) Neutrophils # (Auto) 14.2 x10^3/uL (1.8-7.7) Lymphocytes # (Auto) 0.7 x10^3/uL (1.0-4.8) Monocytes # (Auto) 1.1 x10^3/uL (0.0-1.1) Eosinophils # (Auto) 0.1 x10^3/uL (0.0-0.7) Basophils # (Auto) 0.1 x10^3/uL (0.0-0.2) Sodium Level 153 mmol/L (136-145) Potassium Level 5.4 mmol/L (3.5-5.1) Chloride Level 117 mmol/L (98-107) Carbon Dioxide Level 32 mmol/L (21-32) Anion Gap 4 (6-14) Blood Urea Nitrogen 54 mg/dL (8-26) Creatinine 1.5 mg/dL (0.7-1.3) Estimated GFR (Cockcroft-Gault) 60.2 Glucose Level 170 mg/dL (70-99) Calcium Level 7.7 mg/dL (8.5-10.1) Magnesium Level 2.1 mg/dL (1.8-2.4) Test 06/24/19 07:45 06/24/19 07:59 06/24/19 09:11 O2 Saturation 94 % (92-99) Arterial Blood pH 7.27 (7.35-7.45) Arterial Blood pCO2 at Patient Temp 64 mmHg (35-46) Arterial Blood pO2 at Patient Temp 86 mmHg (75-108) Arterial Blood HCO3 29 mmol/L (21-28) Arterial Blood Base Excess 1 mmol/L (-3-3) FiO2 40 Glucose (Fingerstick) 139 mg/dL (70-99) 125 mg/dL (70-99) Review of Systems Review of Systems: Unable to obtain Assessment and Plan Assessmemt and Plan Problems Medical Problems: (1) Acute pancreatitis Status: Acute (2) Nausea & vomiting Status: Acute Acute hypoxemic respiratory failure, multifactorial. Status post tracheostomy 5 drains Acute gallstone pancreatitis./ Necrosis Acute kidney failure. improving Metabolic toxic encephalopathy. Hyperkalemia.corrected Metabolic / respiratory acidosis Hypocalcemia. Hepatitis B Hypernatremia LLL small effusion, monitor Exploratory laparotomy, pancreatic necrosectomy, cholecystostomy tube placement, Gastrostomy placement with jejunal extension, tracheostomy placement (specifically 8 shiley cuffed) Plan: 1. Continue ICU monitoring 2. Continue to monitor intraabdominal pressures 3. DVT prophylaxis 4. appreciate GI consult Vent weaning IV antibiotics IV paralytics and IV sedatives Trend labs Wound care We are managing 5 drains He is critically ill Total time 34 minutes Comment Review of Relevant I have reviewed the following items alexandra (where applicable) has been applied. Medications: Current Medications Medications (Trade) Dose Ordered Sig/Jesse Route PRN Reason Start Time Stop Time Status Last Admin Dose Admin Insulin Human Regular 100 unit/ Sodium Chloride 101 ml @ 0 mls/hr CONT PRN IV SEE I/O RECORD 06/23/19 12:15 06/24/19 09:31 Sodium Phosphate 10 mmol/Magnesium Sulfate 5 meq/ Calcium Gluconate 15 meq/ Multivitamins 10 ml/Chromium/ Copper/Manganese/ Seleni/Zn 0.5 ml/ Insulin Human Regular 10 unit/ Total Parenteral Nutrition/Amino Acids/Dextrose/ Fat Emulsion Intravenous 1,920 ml @ 80 mls/hr TPN CONT IV 06/23/19 22:00 06/24/19 21:59 06/23/19 22:20 Hemodynamically unstable?: Yes Is patient in severe pain?: Yes Is NPO status required?: Yes JUSTIN WORKMAN III DO Jun 24, 2019 11:45
[2019-06-24 11:56] LABS: BASO # 0.2 x10^3/uL (0.0-0.2); BASO % 1 % (0-3); EOS % 0 % (0-3); HEMATOCRIT 25.1 % (39.0-53.0); LYMPH # 0.4 x10^3/uL (1.0-4.8); LYMPH % 3 % (24-48); MEAN CORPUSCULAR HEMOGLOBIN 29 pg (25-35); MEAN CORPUSCULAR HGB CONC 32 g/dL (31-37); MEAN CORPUSCULAR VOLUME 91 fL (79-100); MONO # 0.9 x10^3/uL (0.0-1.1); MONO % 7 % (0-9); NEUT # 12.2 x10^3/uL (1.8-7.7); NEUT % 89 % (31-73); PLATELET COUNT 215 x10^3/uL (140-400); RED BLOOD COUNT 2.76 x10^6/uL (4.30-5.70); RED CELL DISTRIBUTION WIDTH 14.5 % (11.5-14.5); WHITE BLOOD COUNT 13.7 x10^3/uL (4.0-11.0)
[2019-06-24] MEDS: fentaNYL HIGH DOSE PCA 55 ML IV PRN (12:04)
[2019-06-24 12:08] LABS: CALCIUM 7.5 mg/dL (8.5-10.1); CREATININE 1.4 mg/dL (0.7-1.3); GFR 65.2; POTASSIUM 5.3 mmol/L (3.5-5.1)
[2019-06-24] MEDS: IV NORMAL SALINE 1000ML BAG 1,000 ML IV SCH (15:39)
[2019-06-24] MEDS: hydrALAZINE 20 MG/ML VIAL. IVP PRN (16:00)
[2019-06-24] MEDS: IV DEXTROSE 5% 1,000 ML IV SCH (16:02)
--- NOTE | 2019-06-24 16:06 | PATHOLOGY ---
[facility] Accession Number: [id number] . 01 Material submitted: . PART A: pancreas - NECROSES-PANCREAS PART B: stomach - SAPONIFICATION OMENTUM PART C: gallbladder - GALLSTONES FOR ANALYSIS . 01 Clinical history: . Severe necrotizing gallstone pancreatitis, increased abdominal pressure, respiratory failure . 02 Diagnosis: A. Segments of fibroadipose tissue, pancreas: - Fat necrosis with acute inflammation and focal hemorrhage. . B. Fibroadipose tissue, omentum: - Extensive fat necrosis with acute inflammation and focal hemorrhage. (JPM:mml; 06/24/2019) . C. Calculi, gallstones, removal: - Calculi/cholelithiasis (Gross diagnosis only). - Specimen forwarded for stone analysis, results to be reported in an addendum when available. [facility] 06/24/2019 1507 Local . 02 Comment: There is no evidence of malignancy. . (JPM:mml; 06/24/2019) . 02 Electronically signed: . Cesar Simpson MD, Pathologist NPI- [id number] . 01 Gross description: . A. The specimen is received in formalin, labeled "Cesar Mata, necrosis-pancreas" and consists of 3 segments of soft mathis tissue measuring between 0.7 x 0.6 x 0.3 cm and 0.9 x 0.5 x 0.4 cm which are entirely submitted in A1. . B. The specimen is received in formalin, labeled "Cesar Mata, saponification omentum" and consists of mathis-brown to yellow fat with areas of necrosis measuring 3.8 x 2.4 x 1.3 cm and 4.4 x 2.7 x 1.0 cm. Corsage Maker sections are submitted in B1. . C. The specimen is received in formalin, labeled "Adolfo, Cesar, gallstones". Received are 3 mathis-brown calculi measuring between 0.1-0.3 cm. The specimen is forwarded to sendouts for further processing. (SDY; 06/23/2019) SYU/SYU 06/23/2019 1709 Local . 02 Pathologist provided ICD-10: I96, L98.9, K80.20 . 02 CPT . 924803, 321668 Specimen Comment: A courtesy copy of this report has been sent to [phone], [phone] Specimen Comment: [phone], , Specimen Comment: Report sent to ,DR CONKLIN,DR BLACKBURN / DR CHARLTON Performed at: 01 [facility] [address], [place] [id number] MD Eduardo Marsh MD Phone: [phone] Performed at: 02 [facility] [address], [place] [id number] MD Cesar Simpson MD Phone: [phone]
[2019-06-24] MEDS: TPN PER PHARMACY MC PRN (17:12)
--- NOTE | 2019-06-24 17:15 | NUR ---
Pharmacy TPN Dosing Note S: CHRISTOPHER NEWSOME is a 49 year old M Currently receiving Central Continuous TPN started 06/19/19 B:Pertinent PMH: PANCREATITIS Height: 5 feet, 9 inches Weight: 107.9 kg Current diet: NPO LABS: Sodium: 151 Potassium: 5.3 Chloride: 116 Calcium: 7.7 Corrected Calcium: 9.86 Magnesium: 2.1 CO2: 28 SCr: 1.4 Glucose: 395 Albumin: 1.3 AST: 55 ALT: 49 TPN FORMULA: TPN TYPE: Central Continuous AMINO ACIDS: 145 gm DEXTROSE: 200 gm LIPIDS: 10 gm SODIUM CHLORIDE: mEq SODIUM ACETATE: mEq SODIUM PHOSPHATE: 10 mmol POTASSIUM CHLORIDE: mEq POTASSIUM ACETATE: mEq POTASSIUM PHOSPHATE: 13.6 mmol MAGNESIUM: 5 mEq CALCIUM: 15 mEq INSULIN: 10 units MULTIPLE VITAMIN: 10 ml TRACE ELEMENTS: MTE 5 0.5 ml(s) TPN PLAN: Removed insulin since pt started on insulin drip. BMP/phos/mag in AM. R: Continue TPN ABOVE. Will monitor electrolytes, glucose, and tolerance to TPN. [facility], 06/24/19 4539
--- NOTE | 2019-06-24 18:11 | RAD ---
AP abdomen x-ray HISTORY: Abdominal distention. FINDINGS: 3 percutaneous abdominal drains noted. Lung bases outside [id number]. There is mild contrast density within the left-sided colon. Mild contrast density upper quadrant could be within a loop of small bowel. No dilated bowel loops evident. There is a percutaneous catheter tip at the right upper quadrant the location is uncertain, this could be a feeding tube although this is not a typical position for a gastrostomy, and an enterostomy tube would also be a consideration would also be a possibility. Nasogastric tube tip left upper quadrant radiographic region of the stomach. Bones are unremarkable. IMPRESSION: No bowel obstruction evident. Lines and tubes as described above. AP chest x-ray HISTORY: Hypoxia. FINDINGS: Tracheostomy. Dual-lumen right jugular dialysis catheter tip right atrium. Right jugular dual-lumen central venous catheter tip atrial caval junction. Heart size normal. No pneumothorax. There is mild limited expansion of the lungs. Mild left pleural effusion along the diaphragm stable. Improved aeration at the right lung base with decreased opacity. There is persistent consolidation at the left lower lobe. Bones are unremarkable. IMPRESSION: Lines and tubes as described above. Improved aeration with decreased airspace opacity at the right lower lobe. Consolidated infiltrate left lower lobe is stable. Mild left pleural effusion is stable. Electronically signed by: Juve Ovalle MD (06/24/2019 6:09 PM) [id number]
--- NOTE | 2019-06-24 19:05 | NUR ---
Around 1600 assessment, RN doing oral care and with soft catheter noticed that patient had copious amounts of bright green bile coming out of mouth. Dr. Eunice gates, Dr Mcdonough operations support coordinator, return page, updated on situation. Orders received to insert 18f OG tube in mouth and hook to 100mm suction. OG inserted, air bolus confirmed placement, Return of roughly 20ml bright green bile returned out of OG. Dr Mcdonough called again, told of RN findings. KUB, chest XRAY also obtained to double check tube placement and because pt 02 sat 94% down from 98-100% this morning 06/23. xray, kub done- see report. Intra-abdominal pressure also checked, result 19, as pts abdomen seems even more distended. Dr. Mcdonough notified of pressure results. Report given to nightshift nurse Whit
[2019-06-24] MEDS: INSULIN GLARGINE SYRINGE. SQ SCH (20:38)
[2019-06-24] MEDS ORDERED: DEXTROSE 70% IV SCH ×8 (22:00)
[2019-06-24] MEDS ORDERED: AMINO ACID IV SCH ×8 (22:00)
[2019-06-24] MEDS ORDERED: [UNRECOGNIZED DRUG - OTHER] IV SCH ×8 (22:00)
[2019-06-24] MEDS ORDERED: TOTAL PARENTERAL NUTRITION IV SCH ×8 (22:00)
[2019-06-25] VITALS (24 sets, daily range): BP systolic 104–196; BP diastolic 43–78
[2019-06-25] MEDS: MIDAZOLAM HCL 50 MG in IV NORMAL SALINE 50ML 50 ML IV PRN ×3 (00:48→17:33)
[2019-06-25] MEDS: MEROPENEM 500 MG in IV NORMAL SALINE 50ML 50 ML IV SCH ×4 (00:48→18:00)
[2019-06-25] MEDS: INSULIN LISPRO 300 UNITS/3 ML VIAL. SQ SCH ×6 (04:00→20:00)
[2019-06-25] MEDS: VECURONIUM BROMIDE 50 MG in TOTAL VOLUME 50 ML IV PRN (05:19)
[2019-06-25] MEDS: INSULIN REGULAR VIAL 100 UNIT in IV NORMAL SALINE 100ML 100 ML IV PRN ×2 (05:20→13:42)
[2019-06-25] MEDS: PANTOPRAZOLE IV PUSH 40 MG VIAL. IVP SCH ×2 (06:35→18:27)
[2019-06-25] MEDS: ENOXAPARIN 40 MG/0.4 ML SYRINGE. SQ SCH (06:35)
[2019-06-25 06:42] LABS: CALCIUM 7.7 mg/dL (8.5-10.1); CREATININE 1.5 mg/dL (0.7-1.3); GFR 60.2; MAGNESIUM 2.2 mg/dL (1.8-2.4); PHOSPHORUS 3.3 mg/dL (2.6-4.7); POTASSIUM 5.4 mmol/L (3.5-5.1)
[2019-06-25] MEDS: MICAFUNGIN 100 MG in IV DEXTROSE 5% 100ML 100 ML IV SCH (08:15)
[2019-06-25] MEDS: IV DEXTROSE 5% 1,000 ML IV SCH ×2 (08:17→22:27)
[2019-06-25] MEDS: CHLORHEXIDINE 0.12% 15 ML MOUTHWASH. MM SCH ×2 (08:18→21:09)
--- NOTE | 2019-06-25 08:23 | PDOC ---
Infectious Disease Note Subjective Subjective sedated on vent ROS ROS no n/v/d/sob/fever Vital Sign Vital Signs Vital Signs Date Time Temp Pulse Resp B/P (MAP) Pulse Ox O2 Delivery O2 Flow Rate FiO2 06/25/19 06:00 100.4 118 18 104/50 (68) 98 Ventilator 100.4 06/24/19 12:34 3.0 Physical Exam PHYSICAL EXAM GENERAL: Sedated, orally intubated on vent, HEENT: Pupils equal, small. OGT/ETT in place NECK: Supple no JVD LUNGS: Diminished aeration bases HEART: S1, S2, regular, no murmurs. ABDOMEN: Distended, fairly tight, bowel sounds hypoactive : [place] EXTREMITIES: Trace edema, no cyanosis. SCDs bilaterally SKIN: Warm, dry. 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 RIJ & RIJ/HD catheter (06/19) Labs Lab Laboratory Tests Test 06/24/19 09:11 06/24/19 11:41 06/24/19 11:45 06/24/19 12:48 Glucose (Fingerstick) 125 mg/dL (70-99) 145 mg/dL (70-99) 179 mg/dL (70-99) White Blood Count 13.7 x10^3/uL (4.0-11.0) Red Blood Count 2.76 x10^6/uL (4.30-5.70) Hemoglobin 8.0 g/dL (13.0-17.5) Hematocrit 25.1 % (39.0-53.0) Mean Corpuscular Volume 91 fL (79-100) Mean Corpuscular Hemoglobin 29 pg (25-35) Mean Corpuscular Hemoglobin Concent 32 g/dL (31-37) Red Cell Distribution Width 14.5 % (11.5-14.5) Platelet Count 215 x10^3/uL (140-400) Neutrophils (%) (Auto) 89 % (31-73) Lymphocytes (%) (Auto) 3 % (24-48) Monocytes (%) (Auto) 7 % (0-9) Eosinophils (%) (Auto) 0 % (0-3) Basophils (%) (Auto) 1 % (0-3) Neutrophils # (Auto) 12.2 x10^3/uL (1.8-7.7) Lymphocytes # (Auto) 0.4 x10^3/uL (1.0-4.8) Monocytes # (Auto) 0.9 x10^3/uL (0.0-1.1) Eosinophils # (Auto) 0.0 x10^3/uL (0.0-0.7) Basophils # (Auto) 0.2 x10^3/uL (0.0-0.2) Sodium Level 151 mmol/L (136-145) Potassium Level 5.3 mmol/L (3.5-5.1) Chloride Level 116 mmol/L (98-107) Carbon Dioxide Level 30 mmol/L (21-32) Anion Gap 5 (6-14) Blood Urea Nitrogen 56 mg/dL (8-26) Creatinine 1.4 mg/dL (0.7-1.3) Estimated GFR (Cockcroft-Gault) 65.2 Glucose Level 148 mg/dL (70-99) Calcium Level 7.5 mg/dL (8.5-10.1) Test 06/24/19 14:03 06/24/19 15:14 06/24/19 16:23 06/24/19 17:32 Glucose (Fingerstick) 132 mg/dL (70-99) 126 mg/dL (70-99) 128 mg/dL (70-99) 155 mg/dL (70-99) Test 06/24/19 18:44 06/24/19 19:56 06/24/19 21:02 06/24/19 22:05 Glucose (Fingerstick) 150 mg/dL (70-99) 142 mg/dL (70-99) 187 mg/dL (70-99) 186 mg/dL (70-99) Test 06/24/19 23:13 06/25/19 01:22 06/25/19 02:35 06/25/19 03:48 Glucose (Fingerstick) 197 mg/dL (70-99) 195 mg/dL (70-99) 151 mg/dL (70-99) 132 mg/dL (70-99) Test 06/25/19 06:00 06/25/19 06:01 Sodium Level 148 mmol/L (136-145) Potassium Level 5.4 mmol/L (3.5-5.1) Chloride Level 114 mmol/L (98-107) Carbon Dioxide Level 33 mmol/L (21-32) Anion Gap 1 (6-14) Blood Urea Nitrogen 65 mg/dL (8-26) Creatinine 1.5 mg/dL (0.7-1.3) Estimated GFR (Cockcroft-Gault) 60.2 Glucose Level 132 mg/dL (70-99) Calcium Level 7.7 mg/dL (8.5-10.1) Phosphorus Level 3.3 mg/dL (2.6-4.7) Magnesium Level 2.2 mg/dL (1.8-2.4) Glucose (Fingerstick) 125 mg/dL (70-99) Micro Microbiology 06/20/19 Blood Culture - Preliminary, Resulted NO GROWTH AFTER 2 DAYS Objective Assessment Fever - improved Leukocytosis Gallbladder stone pancreatitis - lipase 475 06/15.- better. CT 06/15 - Fluid collection along the inferior aspect of the stomach measures 9.6 x 4.0 cm. Loculated fluid collection along the anterior aspect of the pancreas measures 3.0 x 2.6 cm -per surgery Sepsis from GI - cult neg Acute Resp failure - intubated Lactic acidosis. Acute kidney injury previously requiring dialysis - now with improved UOP, HDC (06/13) still in place Metabolic acidosis. Hypocalcemia Exploratory laparotomy, pancreatic necrosectomy, cholecystostomy tube placement, Gastrostomy placement with jejunal extension, tracheostomy placement 06/21 Plan Plan of Care Continue merrem, micafungin (06/19) and Zyvox( ) BC neg to date Maintain aspiration precaution. d/w dr Dawson D/w nursing Critically ill KRISTIAN GOODMAN MD Jun 25, 2019 08:23
[2019-06-25] MEDS: fentaNYL HIGH DOSE PCA 55 ML IV PRN (08:28)
[2019-06-25] MEDS: ALBUTEROL SULFATE 2.5 MG/3 ML NEBU. NEB SCH ×4 (08:37→20:09)
[2019-06-25 08:41] LABS: BASE EXCESS ABG 1 mmol/L (-3-3); HCO3 ABG 28 mmol/L (21-28); PCO2 ABG 55 mmHg (35-46); PO2 ABG 101 mmHg (75-108); SAT O2 ABG 97 % (92-99)
--- NOTE | 2019-06-25 08:46 | PDOC ---
[employer] PROGRESS NOTE Chief Complaint Chief Complaint Acute hypoxemic respiratory failure, multifactorial. Status post tracheostomy 5 drains Acute gallstone pancreatitis./ Necrosis Acute kidney failure. improving Metabolic toxic encephalopathy. Hyperkalemia.corrected Metabolic / respiratory acidosis Hypocalcemia. Hepatitis B Hypernatremia LLL small effusion, monitor Exploratory laparotomy, pancreatic necrosectomy, cholecystostomy tube placement, Gastrostomy placement with jejunal extension, tracheostomy placement (specifically 8 shiley cuffed) Specimans Obtained: pancreatic necrosis, saponification, gallstones Findings: diffuse peritonitis, 1.5 liters of ascites, diffuse saponification, viable viscera, mulitiple gallstones, normal liver History of Present Illness History of Present Illness [id number] Patient seen and examined in the ICU He remains intubated and now on multiple drips Vent settings as follows assist-control/18/500/40% Discussed with RN Discussed with Dr. Smyth Chart reviewed He is critically ill [id number] Patient seen and examined in the ICU He is on the ventilator and sedated and paralyzed Discussed with RN Discussed with his Chart reviewed Exploratory laparotomy, pancreatic necrosectomy, cholecystostomy tube placement, Gastrostomy placement with jejunal extension, tracheostomy placement (specifically 8 shiley cuffed) 06/24/2019 Pt seen and examined in the ICU. Discussed with RN, Chart reviewed. Pt was sedated and currently being tried on room air. Ventilator setting as follows: AC/18/500/40% with peep of 5, but not in use during observation. Currently has [address] Vitals/I&O Vitals/I&O: Vital Signs Date Time Temp Pulse Resp B/P (MAP) Pulse Ox O2 Delivery O2 Flow Rate FiO2 06/25/19 08:28 18 98 Ventilator 06/25/19 06:00 100.4 118 104/50 (68) 100.4 06/24/19 12:34 3.0 I & O 06/24/19 06/24/19 06/25/19 15:00 23:00 07:00 Intake Total 400 ml 2596.7 ml 1880 ml Output Total 760 ml 1520 ml 1365 ml Balance -360 ml 1076.7 ml 515 ml Physical Exam Physical Exam: GENERAL: Sedated, orally intubated on vent, HEENT: Pupils equal, small. OGT/ETT in place NECK: Supple no JVD LUNGS: Diminished aeration bases HEART: S1, S2, regular, no murmurs. ABDOMEN: Distended, fairly tight, bowel sounds hypoactive : [place] EXTREMITIES: Trace edema, no cyanosis. SCDs bilaterally SKIN: Warm, dry. 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 & RIJ/HD catheter (06/19) General: No acute distress, Other (sedated currently) Heart: Other (ST, rate near 125-130) Lungs: Clear Abdomen: Other (distended, tubes in place) Extremities: No edema Skin: No significant lesion Labs Labs: Laboratory Tests Test 06/24/19 09:11 06/24/19 11:41 06/24/19 11:45 06/24/19 12:48 Glucose (Fingerstick) 125 mg/dL (70-99) 145 mg/dL (70-99) 179 mg/dL (70-99) White Blood Count 13.7 x10^3/uL (4.0-11.0) Red Blood Count 2.76 x10^6/uL (4.30-5.70) Hemoglobin 8.0 g/dL (13.0-17.5) Hematocrit 25.1 % (39.0-53.0) Mean Corpuscular Volume 91 fL (79-100) Mean Corpuscular Hemoglobin 29 pg (25-35) Mean Corpuscular Hemoglobin Concent 32 g/dL (31-37) Red Cell Distribution Width 14.5 % (11.5-14.5) Platelet Count 215 x10^3/uL (140-400) Neutrophils (%) (Auto) 89 % (31-73) Lymphocytes (%) (Auto) 3 % (24-48) Monocytes (%) (Auto) 7 % (0-9) Eosinophils (%) (Auto) 0 % (0-3) Basophils (%) (Auto) 1 % (0-3) Neutrophils # (Auto) 12.2 x10^3/uL (1.8-7.7) Lymphocytes # (Auto) 0.4 x10^3/uL (1.0-4.8) Monocytes # (Auto) 0.9 x10^3/uL (0.0-1.1) Eosinophils # (Auto) 0.0 x10^3/uL (0.0-0.7) Basophils # (Auto) 0.2 x10^3/uL (0.0-0.2) Sodium Level 151 mmol/L (136-145) Potassium Level 5.3 mmol/L (3.5-5.1) Chloride Level 116 mmol/L (98-107) Carbon Dioxide Level 30 mmol/L (21-32) Anion Gap 5 (6-14) Blood Urea Nitrogen 56 mg/dL (8-26) Creatinine 1.4 mg/dL (0.7-1.3) Estimated GFR (Cockcroft-Gault) 65.2 Glucose Level 148 mg/dL (70-99) Calcium Level 7.5 mg/dL (8.5-10.1) Test 06/24/19 14:03 06/24/19 15:14 06/24/19 16:23 06/24/19 17:32 Glucose (Fingerstick) 132 mg/dL (70-99) 126 mg/dL (70-99) 128 mg/dL (70-99) 155 mg/dL (70-99) Test 06/24/19 18:44 06/24/19 19:56 06/24/19 21:02 06/24/19 22:05 Glucose (Fingerstick) 150 mg/dL (70-99) 142 mg/dL (70-99) 187 mg/dL (70-99) 186 mg/dL (70-99) Test 06/24/19 23:13 06/25/19 01:22 06/25/19 02:35 06/25/19 03:48 Glucose (Fingerstick) 197 mg/dL (70-99) 195 mg/dL (70-99) 151 mg/dL (70-99) 132 mg/dL (70-99) Test 06/25/19 06:00 06/25/19 06:01 06/25/19 08:32 Sodium Level 148 mmol/L (136-145) Potassium Level 5.4 mmol/L (3.5-5.1) Chloride Level 114 mmol/L (98-107) Carbon Dioxide Level 33 mmol/L (21-32) Anion Gap 1 (6-14) Blood Urea Nitrogen 65 mg/dL (8-26) Creatinine 1.5 mg/dL (0.7-1.3) Estimated GFR (Cockcroft-Gault) 60.2 Glucose Level 132 mg/dL (70-99) Calcium Level 7.7 mg/dL (8.5-10.1) Phosphorus Level 3.3 mg/dL (2.6-4.7) Magnesium Level 2.2 mg/dL (1.8-2.4) Glucose (Fingerstick) 125 mg/dL (70-99) 154 mg/dL (70-99) Review of Systems Review of Systems: Unable to obtain Assessment and Plan Assessmemt and Plan Problems Medical Problems: (1) Acute pancreatitis Status: Acute (2) Nausea & vomiting Status: Acute Acute hypoxemic respiratory failure, multifactorial. Status post tracheostomy 5 drains Acute gallstone pancreatitis./ Necrosis Acute kidney failure. improving Metabolic toxic encephalopathy. Hyperkalemia.corrected Metabolic / respiratory acidosis Hypocalcemia. Hepatitis B Hypernatremia LLL small effusion, monitor Exploratory laparotomy, pancreatic necrosectomy, cholecystostomy tube placement, Gastrostomy placement with jejunal extension, tracheostomy placement (specifically 8 shiley cuffed) Plan: 1. Continue ICU monitoring 2. Continue to monitor intraabdominal pressures 3. DVT prophylaxis 4. appreciate GI consult Vent weaning IV antibiotics IV paralytics and IV sedatives Trend labs Wound care We are managing 5 drains He remains critically ill Total time 32 minutes Comment Review of Relevant I have reviewed the following items alexandra (where applicable) has been applied. Medications: Current Medications Medications (Trade) Dose Ordered Sig/Jesse Route PRN Reason Start Time Stop Time Status Last Admin Dose Admin Fentanyl Citrate 55 ml @ 1.98 mls/hr CONT PRN IV SEE PROTOCOL 06/24/19 11:45 06/25/19 08:28 Sodium Phosphate 10 mmol/Magnesium Sulfate 5 meq/ Calcium Gluconate 15 meq/ Multivitamins 10 ml/Chromium/ Copper/Manganese/ Seleni/Zn 0.5 ml/ Total Parenteral Nutrition/Amino Acids/Dextrose/ Fat Emulsion Intravenous 1,920 ml @ 80 mls/hr TPN CONT IV 06/24/19 22:00 06/25/19 21:59 06/24/19 22:26 Hemodynamically unstable?: Yes Is patient in severe pain?: Yes Is NPO status required?: Yes JUSTIN WORKMAN III DO Jun 25, 2019 08:46
[2019-06-25 08:47] LABS: BASO # 0.1 x10^3/uL (0.0-0.2); BASO % 1 % (0-3); EOS % 0 % (0-3); HEMATOCRIT 24.2 % (39.0-53.0); HEMOGLOBIN 7.6 g/dL (13.0-17.5); LYMPH # 0.9 x10^3/uL (1.0-4.8); LYMPH % 7 % (24-48); MEAN CORPUSCULAR HEMOGLOBIN 29 pg (25-35); MEAN CORPUSCULAR HGB CONC 32 g/dL (31-37); MEAN CORPUSCULAR VOLUME 91 fL (79-100); MONO # 1.2 x10^3/uL (0.0-1.1); MONO % 8 % (0-9); NEUT # 11.7 x10^3/uL (1.8-7.7); NEUT % 84 % (31-73); PLATELET COUNT 239 x10^3/uL (140-400); RED BLOOD COUNT 2.65 x10^6/uL (4.30-5.70); RED CELL DISTRIBUTION WIDTH 14.7 % (11.5-14.5); WHITE BLOOD COUNT 13.9 x10^3/uL (4.0-11.0)
--- NOTE | 2019-06-25 09:03 | PDOC ---
SURGICAL PROGRESS NOTE Subjective Pt sedated on vent, OGT placed with bilious output Vital Signs Vital Signs Date Time Temp Pulse Resp B/P (MAP) Pulse Ox O2 Delivery O2 Flow Rate FiO2 06/25/19 08:28 18 98 Ventilator 06/25/19 06:00 100.4 118 104/50 (68) 100.4 06/24/19 12:34 3.0 I&O Intake and Output 06/25/19 07:00 Intake Total 4876.7 ml Output Total 3645 ml Balance 1231.7 ml IV Total 4876.7 ml Output Urine Total 2530 ml Gastric Drainage Total 125 ml Drainage Total 990 ml PATIENT HAS A LEPE: Yes (accurate i and os) General: No acute distress Abdomen: Soft, Other (distended, tubes in place and functional) Labs Laboratory Tests Test 06/23/19 12:06 06/23/19 14:42 06/23/19 15:38 06/23/19 16:37 Glucose (Fingerstick) 354 mg/dL (70-99) 354 mg/dL (70-99) 344 mg/dL (70-99) 245 mg/dL (70-99) Test 06/23/19 17:39 06/23/19 18:45 06/23/19 20:12 06/23/19 21:17 Glucose (Fingerstick) 272 mg/dL (70-99) 238 mg/dL (70-99) 192 mg/dL (70-99) 168 mg/dL (70-99) Test 06/23/19 22:18 06/23/19 23:20 06/24/19 00:25 06/24/19 01:29 Glucose (Fingerstick) 157 mg/dL (70-99) 165 mg/dL (70-99) 148 mg/dL (70-99) 132 mg/dL (70-99) Test 06/24/19 02:40 06/24/19 03:54 06/24/19 05:00 06/24/19 05:15 Glucose (Fingerstick) 148 mg/dL (70-99) 154 mg/dL (70-99) 146 mg/dL (70-99) White Blood Count 16.1 x10^3/uL (4.0-11.0) Red Blood Count 2.91 x10^6/uL (4.30-5.70) Hemoglobin 8.4 g/dL (13.0-17.5) Hematocrit 26.8 % (39.0-53.0) Mean Corpuscular Volume 92 fL (79-100) Mean Corpuscular Hemoglobin 29 pg (25-35) Mean Corpuscular Hemoglobin Concent 31 g/dL (31-37) Red Cell Distribution Width 14.8 % (11.5-14.5) Platelet Count 233 x10^3/uL (140-400) Neutrophils (%) (Auto) 88 % (31-73) Lymphocytes (%) (Auto) 4 % (24-48) Monocytes (%) (Auto) 7 % (0-9) Eosinophils (%) (Auto) 0 % (0-3) Basophils (%) (Auto) 0 % (0-3) Neutrophils # (Auto) 14.2 x10^3/uL (1.8-7.7) Lymphocytes # (Auto) 0.7 x10^3/uL (1.0-4.8) Monocytes # (Auto) 1.1 x10^3/uL (0.0-1.1) Eosinophils # (Auto) 0.1 x10^3/uL (0.0-0.7) Basophils # (Auto) 0.1 x10^3/uL (0.0-0.2) Sodium Level 153 mmol/L (136-145) Potassium Level 5.4 mmol/L (3.5-5.1) Chloride Level 117 mmol/L (98-107) Carbon Dioxide Level 32 mmol/L (21-32) Anion Gap 4 (6-14) Blood Urea Nitrogen 54 mg/dL (8-26) Creatinine 1.5 mg/dL (0.7-1.3) Estimated GFR (Cockcroft-Gault) 60.2 Glucose Level 170 mg/dL (70-99) Calcium Level 7.7 mg/dL (8.5-10.1) Magnesium Level 2.1 mg/dL (1.8-2.4) Test 06/24/19 07:45 06/24/19 07:59 06/24/19 09:11 06/24/19 11:41 O2 Saturation 94 % (92-99) Arterial Blood pH 7.27 (7.35-7.45) Arterial Blood pCO2 at Patient Temp 64 mmHg (35-46) Arterial Blood pO2 at Patient Temp 86 mmHg (75-108) Arterial Blood HCO3 29 mmol/L (21-28) Arterial Blood Base Excess 1 mmol/L (-3-3) FiO2 40 Glucose (Fingerstick) 139 mg/dL (70-99) 125 mg/dL (70-99) 145 mg/dL (70-99) Test 06/24/19 11:45 06/24/19 12:48 06/24/19 14:03 06/24/19 15:14 White Blood Count 13.7 x10^3/uL (4.0-11.0) Red Blood Count 2.76 x10^6/uL (4.30-5.70) Hemoglobin 8.0 g/dL (13.0-17.5) Hematocrit 25.1 % (39.0-53.0) Mean Corpuscular Volume 91 fL (79-100) Mean Corpuscular Hemoglobin 29 pg (25-35) Mean Corpuscular Hemoglobin Concent 32 g/dL (31-37) Red Cell Distribution Width 14.5 % (11.5-14.5) Platelet Count 215 x10^3/uL (140-400) Neutrophils (%) (Auto) 89 % (31-73) Lymphocytes (%) (Auto) 3 % (24-48) Monocytes (%) (Auto) 7 % (0-9) Eosinophils (%) (Auto) 0 % (0-3) Basophils (%) (Auto) 1 % (0-3) Neutrophils # (Auto) 12.2 x10^3/uL (1.8-7.7) Lymphocytes # (Auto) 0.4 x10^3/uL (1.0-4.8) Monocytes # (Auto) 0.9 x10^3/uL (0.0-1.1) Eosinophils # (Auto) 0.0 x10^3/uL (0.0-0.7) Basophils # (Auto) 0.2 x10^3/uL (0.0-0.2) Sodium Level 151 mmol/L (136-145) Potassium Level 5.3 mmol/L (3.5-5.1) Chloride Level 116 mmol/L (98-107) Carbon Dioxide Level 30 mmol/L (21-32) Anion Gap 5 (6-14) Blood Urea Nitrogen 56 mg/dL (8-26) Creatinine 1.4 mg/dL (0.7-1.3) Estimated GFR (Cockcroft-Gault) 65.2 Glucose Level 148 mg/dL (70-99) Calcium Level 7.5 mg/dL (8.5-10.1) Glucose (Fingerstick) 179 mg/dL (70-99) 132 mg/dL (70-99) 126 mg/dL (70-99) Test 06/24/19 16:23 06/24/19 17:32 06/24/19 18:44 06/24/19 19:56 Glucose (Fingerstick) 128 mg/dL (70-99) 155 mg/dL (70-99) 150 mg/dL (70-99) 142 mg/dL (70-99) Test 06/24/19 21:02 06/24/19 22:05 06/24/19 23:13 06/25/19 01:22 Glucose (Fingerstick) 187 mg/dL (70-99) 186 mg/dL (70-99) 197 mg/dL (70-99) 195 mg/dL (70-99) Test 06/25/19 02:35 06/25/19 03:48 06/25/19 06:00 06/25/19 06:01 Glucose (Fingerstick) 151 mg/dL (70-99) 132 mg/dL (70-99) 125 mg/dL (70-99) Sodium Level 148 mmol/L (136-145) Potassium Level 5.4 mmol/L (3.5-5.1) Chloride Level 114 mmol/L (98-107) Carbon Dioxide Level 33 mmol/L (21-32) Anion Gap 1 (6-14) Blood Urea Nitrogen 65 mg/dL (8-26) Creatinine 1.5 mg/dL (0.7-1.3) Estimated GFR (Cockcroft-Gault) 60.2 Glucose Level 132 mg/dL (70-99) Calcium Level 7.7 mg/dL (8.5-10.1) Phosphorus Level 3.3 mg/dL (2.6-4.7) Magnesium Level 2.2 mg/dL (1.8-2.4) Test 06/25/19 08:32 Glucose (Fingerstick) 154 mg/dL (70-99) Laboratory Tests Test 06/24/19 09:11 06/24/19 11:41 06/24/19 11:45 06/24/19 12:48 Glucose (Fingerstick) 125 mg/dL (70-99) 145 mg/dL (70-99) 179 mg/dL (70-99) White Blood Count 13.7 x10^3/uL (4.0-11.0) Red Blood Count 2.76 x10^6/uL (4.30-5.70) Hemoglobin 8.0 g/dL (13.0-17.5) Hematocrit 25.1 % (39.0-53.0) Mean Corpuscular Volume 91 fL (79-100) Mean Corpuscular Hemoglobin 29 pg (25-35) Mean Corpuscular Hemoglobin Concent 32 g/dL (31-37) Red Cell Distribution Width 14.5 % (11.5-14.5) Platelet Count 215 x10^3/uL (140-400) Neutrophils (%) (Auto) 89 % (31-73) Lymphocytes (%) (Auto) 3 % (24-48) Monocytes (%) (Auto) 7 % (0-9) Eosinophils (%) (Auto) 0 % (0-3) Basophils (%) (Auto) 1 % (0-3) Neutrophils # (Auto) 12.2 x10^3/uL (1.8-7.7) Lymphocytes # (Auto) 0.4 x10^3/uL (1.0-4.8) Monocytes # (Auto) 0.9 x10^3/uL (0.0-1.1) Eosinophils # (Auto) 0.0 x10^3/uL (0.0-0.7) Basophils # (Auto) 0.2 x10^3/uL (0.0-0.2) Sodium Level 151 mmol/L (136-145) Potassium Level 5.3 mmol/L (3.5-5.1) Chloride Level 116 mmol/L (98-107) Carbon Dioxide Level 30 mmol/L (21-32) Anion Gap 5 (6-14) Blood Urea Nitrogen 56 mg/dL (8-26) Creatinine 1.4 mg/dL (0.7-1.3) Estimated GFR (Cockcroft-Gault) 65.2 Glucose Level 148 mg/dL (70-99) Calcium Level 7.5 mg/dL (8.5-10.1) Test 06/24/19 14:03 06/24/19 15:14 06/24/19 16:23 06/24/19 17:32 Glucose (Fingerstick) 132 mg/dL (70-99) 126 mg/dL (70-99) 128 mg/dL (70-99) 155 mg/dL (70-99) Test 06/24/19 18:44 06/24/19 19:56 06/24/19 21:02 06/24/19 22:05 Glucose (Fingerstick) 150 mg/dL (70-99) 142 mg/dL (70-99) 187 mg/dL (70-99) 186 mg/dL (70-99) Test 06/24/19 23:13 06/25/19 01:22 06/25/19 02:35 06/25/19 03:48 Glucose (Fingerstick) 197 mg/dL (70-99) 195 mg/dL (70-99) 151 mg/dL (70-99) 132 mg/dL (70-99) Test 06/25/19 06:00 06/25/19 06:01 06/25/19 08:32 Sodium Level 148 mmol/L (136-145) Potassium Level 5.4 mmol/L (3.5-5.1) Chloride Level 114 mmol/L (98-107) Carbon Dioxide Level 33 mmol/L (21-32) Anion Gap 1 (6-14) Blood Urea Nitrogen 65 mg/dL (8-26) Creatinine 1.5 mg/dL (0.7-1.3) Estimated GFR (Cockcroft-Gault) 60.2 Glucose Level 132 mg/dL (70-99) Calcium Level 7.7 mg/dL (8.5-10.1) Phosphorus Level 3.3 mg/dL (2.6-4.7) Magnesium Level 2.2 mg/dL (1.8-2.4) Glucose (Fingerstick) 125 mg/dL (70-99) 154 mg/dL (70-99) Problem List Problems Medical Problems: (1) Acute pancreatitis Status: Acute (2) Nausea & vomiting Status: Acute Assessment/Plan s/p necrosectomy cont supportive care KARLA CALL MD Jun 25, 2019 09:03
[2019-06-25 09:39] LABS: FIO2 ABG 40
--- NOTE | 2019-06-25 10:50 | PDOC ---
Objective: Objective: Reviewed chart, d/w nurse. Vital Signs: Vital Signs Date Time Temp Pulse Resp B/P (MAP) Pulse Ox O2 Delivery O2 Flow Rate FiO2 06/25/19 09:41 97 Ventilator 06/25/19 08:28 18 06/25/19 08:00 116 196/78 (117) 06/25/19 06:00 100.4 100.4 06/24/19 12:34 3.0 Labs: ANAEROBIC-AEROBIC CULTURE PENDING ANAEROBIC RES 1 PENDING AEROBIC CULT PENDING AEROBIC RES 1 PENDING GRAM STAIN Final Final report GRAM STAIN RES 1 Final Comment No white blood cells seen. GRAM STAIN RES 2 Final No organisms seen Laboratory Tests Test 06/24/19 11:41 06/24/19 11:45 06/24/19 12:48 06/24/19 14:03 Glucose (Fingerstick) 145 mg/dL 179 mg/dL 132 mg/dL White Blood Count 13.7 x10^3/uL Red Blood Count 2.76 x10^6/uL Hemoglobin 8.0 g/dL Hematocrit 25.1 % Mean Corpuscular Volume 91 fL Mean Corpuscular Hemoglobin 29 pg Mean Corpuscular Hemoglobin Concent 32 g/dL Red Cell Distribution Width 14.5 % Platelet Count 215 x10^3/uL Neutrophils (%) (Auto) 89 % Lymphocytes (%) (Auto) 3 % Monocytes (%) (Auto) 7 % Eosinophils (%) (Auto) 0 % Basophils (%) (Auto) 1 % Neutrophils # (Auto) 12.2 x10^3/uL Lymphocytes # (Auto) 0.4 x10^3/uL Monocytes # (Auto) 0.9 x10^3/uL Eosinophils # (Auto) 0.0 x10^3/uL Basophils # (Auto) 0.2 x10^3/uL Sodium Level 151 mmol/L Potassium Level 5.3 mmol/L Chloride Level 116 mmol/L Carbon Dioxide Level 30 mmol/L Anion Gap 5 Blood Urea Nitrogen 56 mg/dL Creatinine 1.4 mg/dL Estimated GFR (Cockcroft-Gault) 65.2 Glucose Level 148 mg/dL Calcium Level 7.5 mg/dL Test 06/24/19 15:14 06/24/19 16:23 06/24/19 17:32 06/24/19 18:44 Glucose (Fingerstick) 126 mg/dL 128 mg/dL 155 mg/dL 150 mg/dL Test 06/24/19 19:56 06/24/19 21:02 06/24/19 22:05 06/24/19 23:13 Glucose (Fingerstick) 142 mg/dL 187 mg/dL 186 mg/dL 197 mg/dL Test 06/25/19 01:22 06/25/19 02:35 06/25/19 03:48 06/25/19 06:00 Glucose (Fingerstick) 195 mg/dL 151 mg/dL 132 mg/dL White Blood Count 13.9 x10^3/uL Red Blood Count 2.65 x10^6/uL Hemoglobin 7.6 g/dL Hematocrit 24.2 % Mean Corpuscular Volume 91 fL Mean Corpuscular Hemoglobin 29 pg Mean Corpuscular Hemoglobin Concent 32 g/dL Red Cell Distribution Width 14.7 % Platelet Count 239 x10^3/uL Neutrophils (%) (Auto) 84 % Lymphocytes (%) (Auto) 7 % Monocytes (%) (Auto) 8 % Eosinophils (%) (Auto) 0 % Basophils (%) (Auto) 1 % Neutrophils # (Auto) 11.7 x10^3/uL Lymphocytes # (Auto) 0.9 x10^3/uL Monocytes # (Auto) 1.2 x10^3/uL Eosinophils # (Auto) 0.0 x10^3/uL Basophils # (Auto) 0.1 x10^3/uL Sodium Level 148 mmol/L Potassium Level 5.4 mmol/L Chloride Level 114 mmol/L Carbon Dioxide Level 33 mmol/L Anion Gap 1 Blood Urea Nitrogen 65 mg/dL Creatinine 1.5 mg/dL Estimated GFR (Cockcroft-Gault) 60.2 Glucose Level 132 mg/dL Calcium Level 7.7 mg/dL Phosphorus Level 3.3 mg/dL Magnesium Level 2.2 mg/dL Test 06/25/19 06:01 06/25/19 08:30 06/25/19 08:32 06/25/19 09:37 Glucose (Fingerstick) 125 mg/dL 154 mg/dL 175 mg/dL O2 Saturation 97 % Arterial Blood pH 7.32 Arterial Blood pCO2 at Patient Temp 55 mmHg Arterial Blood pO2 at Patient Temp 101 mmHg Arterial Blood HCO3 28 mmol/L Arterial Blood Base Excess 1 mmol/L FiO2 40 Imaging: CXR, KUB 06/23 IMPRESSION: No bowel obstruction evident. Lines and tubes as described above. IMPRESSION: Lines and tubes as described above. Improved aeration with decreased airspace opacity at the right lower lobe. Consolidated infiltrate left lower lobe is stable. Mild left pleural effusion is stable. PE: GEN: intubated - now w/ bilious output from OG LUNGS: cent, clear anteriorly HEART: RRR ABD: distended, tight, drains NEURO/PSYCH: sedated A/P: S/p pancreatic necrosectomy on TPN, PPI Hypernatremia - better -- Continue support. Hemodynamically unstable?: Yes Is patient in severe pain?: Yes Is NPO status required?: Yes PAXTON ALEXANDER Jun 25, 2019 10:50
--- NOTE | 2019-06-25 10:57 | PDOC ---
PULMONARY PROGRESS NOTES Subjective remains on [facility]. ventilation, intubated , s/p trach 06/21 no overnight concerns from nursing reg pulmonary status Vitals Vital Signs Date Time Temp Pulse Resp B/P (MAP) Pulse Ox O2 Delivery O2 Flow Rate FiO2 06/25/19 09:41 97 Ventilator 06/25/19 08:28 18 06/25/19 08:00 116 196/78 (117) 06/25/19 06:00 100.4 100.4 06/24/19 12:34 3.0 Comments sedated Lungs: Clear Cardiovascular: S1, S2 Abdomen: Other (/distended/firm ) Extremities: No Edema Skin: Warm Labs Laboratory Tests Test 06/23/19 12:06 06/23/19 14:42 06/23/19 15:38 06/23/19 16:37 Glucose (Fingerstick) 354 mg/dL (70-99) 354 mg/dL (70-99) 344 mg/dL (70-99) 245 mg/dL (70-99) Test 06/23/19 17:39 06/23/19 18:45 06/23/19 20:12 06/23/19 21:17 Glucose (Fingerstick) 272 mg/dL (70-99) 238 mg/dL (70-99) 192 mg/dL (70-99) 168 mg/dL (70-99) Test 06/23/19 22:18 06/23/19 23:20 06/24/19 00:25 06/24/19 01:29 Glucose (Fingerstick) 157 mg/dL (70-99) 165 mg/dL (70-99) 148 mg/dL (70-99) 132 mg/dL (70-99) Test 06/24/19 02:40 06/24/19 03:54 06/24/19 05:00 06/24/19 05:15 Glucose (Fingerstick) 148 mg/dL (70-99) 154 mg/dL (70-99) 146 mg/dL (70-99) White Blood Count 16.1 x10^3/uL (4.0-11.0) Red Blood Count 2.91 x10^6/uL (4.30-5.70) Hemoglobin 8.4 g/dL (13.0-17.5) Hematocrit 26.8 % (39.0-53.0) Mean Corpuscular Volume 92 fL (79-100) Mean Corpuscular Hemoglobin 29 pg (25-35) Mean Corpuscular Hemoglobin Concent 31 g/dL (31-37) Red Cell Distribution Width 14.8 % (11.5-14.5) Platelet Count 233 x10^3/uL (140-400) Neutrophils (%) (Auto) 88 % (31-73) Lymphocytes (%) (Auto) 4 % (24-48) Monocytes (%) (Auto) 7 % (0-9) Eosinophils (%) (Auto) 0 % (0-3) Basophils (%) (Auto) 0 % (0-3) Neutrophils # (Auto) 14.2 x10^3/uL (1.8-7.7) Lymphocytes # (Auto) 0.7 x10^3/uL (1.0-4.8) Monocytes # (Auto) 1.1 x10^3/uL (0.0-1.1) Eosinophils # (Auto) 0.1 x10^3/uL (0.0-0.7) Basophils # (Auto) 0.1 x10^3/uL (0.0-0.2) Sodium Level 153 mmol/L (136-145) Potassium Level 5.4 mmol/L (3.5-5.1) Chloride Level 117 mmol/L (98-107) Carbon Dioxide Level 32 mmol/L (21-32) Anion Gap 4 (6-14) Blood Urea Nitrogen 54 mg/dL (8-26) Creatinine 1.5 mg/dL (0.7-1.3) Estimated GFR (Cockcroft-Gault) 60.2 Glucose Level 170 mg/dL (70-99) Calcium Level 7.7 mg/dL (8.5-10.1) Magnesium Level 2.1 mg/dL (1.8-2.4) Test 06/24/19 07:45 06/24/19 07:59 06/24/19 09:11 06/24/19 11:41 O2 Saturation 94 % (92-99) Arterial Blood pH 7.27 (7.35-7.45) Arterial Blood pCO2 at Patient Temp 64 mmHg (35-46) Arterial Blood pO2 at Patient Temp 86 mmHg (75-108) Arterial Blood HCO3 29 mmol/L (21-28) Arterial Blood Base Excess 1 mmol/L (-3-3) FiO2 40 Glucose (Fingerstick) 139 mg/dL (70-99) 125 mg/dL (70-99) 145 mg/dL (70-99) Test 06/24/19 11:45 06/24/19 12:48 06/24/19 14:03 06/24/19 15:14 White Blood Count 13.7 x10^3/uL (4.0-11.0) Red Blood Count 2.76 x10^6/uL (4.30-5.70) Hemoglobin 8.0 g/dL (13.0-17.5) Hematocrit 25.1 % (39.0-53.0) Mean Corpuscular Volume 91 fL (79-100) Mean Corpuscular Hemoglobin 29 pg (25-35) Mean Corpuscular Hemoglobin Concent 32 g/dL (31-37) Red Cell Distribution Width 14.5 % (11.5-14.5) Platelet Count 215 x10^3/uL (140-400) Neutrophils (%) (Auto) 89 % (31-73) Lymphocytes (%) (Auto) 3 % (24-48) Monocytes (%) (Auto) 7 % (0-9) Eosinophils (%) (Auto) 0 % (0-3) Basophils (%) (Auto) 1 % (0-3) Neutrophils # (Auto) 12.2 x10^3/uL (1.8-7.7) Lymphocytes # (Auto) 0.4 x10^3/uL (1.0-4.8) Monocytes # (Auto) 0.9 x10^3/uL (0.0-1.1) Eosinophils # (Auto) 0.0 x10^3/uL (0.0-0.7) Basophils # (Auto) 0.2 x10^3/uL (0.0-0.2) Sodium Level 151 mmol/L (136-145) Potassium Level 5.3 mmol/L (3.5-5.1) Chloride Level 116 mmol/L (98-107) Carbon Dioxide Level 30 mmol/L (21-32) Anion Gap 5 (6-14) Blood Urea Nitrogen 56 mg/dL (8-26) Creatinine 1.4 mg/dL (0.7-1.3) Estimated GFR (Cockcroft-Gault) 65.2 Glucose Level 148 mg/dL (70-99) Calcium Level 7.5 mg/dL (8.5-10.1) Glucose (Fingerstick) 179 mg/dL (70-99) 132 mg/dL (70-99) 126 mg/dL (70-99) Test 06/24/19 16:23 06/24/19 17:32 06/24/19 18:44 06/24/19 19:56 Glucose (Fingerstick) 128 mg/dL (70-99) 155 mg/dL (70-99) 150 mg/dL (70-99) 142 mg/dL (70-99) Test 06/24/19 21:02 06/24/19 22:05 06/24/19 23:13 06/25/19 01:22 Glucose (Fingerstick) 187 mg/dL (70-99) 186 mg/dL (70-99) 197 mg/dL (70-99) 195 mg/dL (70-99) Test 06/25/19 02:35 06/25/19 03:48 06/25/19 06:00 06/25/19 06:01 Glucose (Fingerstick) 151 mg/dL (70-99) 132 mg/dL (70-99) 125 mg/dL (70-99) White Blood Count 13.9 x10^3/uL (4.0-11.0) Red Blood Count 2.65 x10^6/uL (4.30-5.70) Hemoglobin 7.6 g/dL (13.0-17.5) Hematocrit 24.2 % (39.0-53.0) Mean Corpuscular Volume 91 fL (79-100) Mean Corpuscular Hemoglobin 29 pg (25-35) Mean Corpuscular Hemoglobin Concent 32 g/dL (31-37) Red Cell Distribution Width 14.7 % (11.5-14.5) Platelet Count 239 x10^3/uL (140-400) Neutrophils (%) (Auto) 84 % (31-73) Lymphocytes (%) (Auto) 7 % (24-48) Monocytes (%) (Auto) 8 % (0-9) Eosinophils (%) (Auto) 0 % (0-3) Basophils (%) (Auto) 1 % (0-3) Neutrophils # (Auto) 11.7 x10^3/uL (1.8-7.7) Lymphocytes # (Auto) 0.9 x10^3/uL (1.0-4.8) Monocytes # (Auto) 1.2 x10^3/uL (0.0-1.1) Eosinophils # (Auto) 0.0 x10^3/uL (0.0-0.7) Basophils # (Auto) 0.1 x10^3/uL (0.0-0.2) Sodium Level 148 mmol/L (136-145) Potassium Level 5.4 mmol/L (3.5-5.1) Chloride Level 114 mmol/L (98-107) Carbon Dioxide Level 33 mmol/L (21-32) Anion Gap 1 (6-14) Blood Urea Nitrogen 65 mg/dL (8-26) Creatinine 1.5 mg/dL (0.7-1.3) Estimated GFR (Cockcroft-Gault) 60.2 Glucose Level 132 mg/dL (70-99) Calcium Level 7.7 mg/dL (8.5-10.1) Phosphorus Level 3.3 mg/dL (2.6-4.7) Magnesium Level 2.2 mg/dL (1.8-2.4) Test 06/25/19 08:30 06/25/19 08:32 06/25/19 09:37 06/25/19 10:45 O2 Saturation 97 % (92-99) Arterial Blood pH 7.32 (7.35-7.45) Arterial Blood pCO2 at Patient Temp 55 mmHg (35-46) Arterial Blood pO2 at Patient Temp 101 mmHg (75-108) Arterial Blood HCO3 28 mmol/L (21-28) Arterial Blood Base Excess 1 mmol/L (-3-3) FiO2 40 Glucose (Fingerstick) 154 mg/dL (70-99) 175 mg/dL (70-99) 179 mg/dL (70-99) Laboratory Tests Test 06/24/19 11:41 06/24/19 11:45 06/24/19 12:48 06/24/19 14:03 Glucose (Fingerstick) 145 mg/dL (70-99) 179 mg/dL (70-99) 132 mg/dL (70-99) White Blood Count 13.7 x10^3/uL (4.0-11.0) Red Blood Count 2.76 x10^6/uL (4.30-5.70) Hemoglobin 8.0 g/dL (13.0-17.5) Hematocrit 25.1 % (39.0-53.0) Mean Corpuscular Volume 91 fL (79-100) Mean Corpuscular Hemoglobin 29 pg (25-35) Mean Corpuscular Hemoglobin Concent 32 g/dL (31-37) Red Cell Distribution Width 14.5 % (11.5-14.5) Platelet Count 215 x10^3/uL (140-400) Neutrophils (%) (Auto) 89 % (31-73) Lymphocytes (%) (Auto) 3 % (24-48) Monocytes (%) (Auto) 7 % (0-9) Eosinophils (%) (Auto) 0 % (0-3) Basophils (%) (Auto) 1 % (0-3) Neutrophils # (Auto) 12.2 x10^3/uL (1.8-7.7) Lymphocytes # (Auto) 0.4 x10^3/uL (1.0-4.8) Monocytes # (Auto) 0.9 x10^3/uL (0.0-1.1) Eosinophils # (Auto) 0.0 x10^3/uL (0.0-0.7) Basophils # (Auto) 0.2 x10^3/uL (0.0-0.2) Sodium Level 151 mmol/L (136-145) Potassium Level 5.3 mmol/L (3.5-5.1) Chloride Level 116 mmol/L (98-107) Carbon Dioxide Level 30 mmol/L (21-32) Anion Gap 5 (6-14) Blood Urea Nitrogen 56 mg/dL (8-26) Creatinine 1.4 mg/dL (0.7-1.3) Estimated GFR (Cockcroft-Gault) 65.2 Glucose Level 148 mg/dL (70-99) Calcium Level 7.5 mg/dL (8.5-10.1) Test 06/24/19 15:14 06/24/19 16:23 06/24/19 17:32 06/24/19 18:44 Glucose (Fingerstick) 126 mg/dL (70-99) 128 mg/dL (70-99) 155 mg/dL (70-99) 150 mg/dL (70-99) Test 06/24/19 19:56 06/24/19 21:02 06/24/19 22:05 06/24/19 23:13 Glucose (Fingerstick) 142 mg/dL (70-99) 187 mg/dL (70-99) 186 mg/dL (70-99) 197 mg/dL (70-99) Test 06/25/19 01:22 06/25/19 02:35 06/25/19 03:48 06/25/19 06:00 Glucose (Fingerstick) 195 mg/dL (70-99) 151 mg/dL (70-99) 132 mg/dL (70-99) White Blood Count 13.9 x10^3/uL (4.0-11.0) Red Blood Count 2.65 x10^6/uL (4.30-5.70) Hemoglobin 7.6 g/dL (13.0-17.5) Hematocrit 24.2 % (39.0-53.0) Mean Corpuscular Volume 91 fL (79-100) Mean Corpuscular Hemoglobin 29 pg (25-35) Mean Corpuscular Hemoglobin Concent 32 g/dL (31-37) Red Cell Distribution Width 14.7 % (11.5-14.5) Platelet Count 239 x10^3/uL (140-400) Neutrophils (%) (Auto) 84 % (31-73) Lymphocytes (%) (Auto) 7 % (24-48) Monocytes (%) (Auto) 8 % (0-9) Eosinophils (%) (Auto) 0 % (0-3) Basophils (%) (Auto) 1 % (0-3) Neutrophils # (Auto) 11.7 x10^3/uL (1.8-7.7) Lymphocytes # (Auto) 0.9 x10^3/uL (1.0-4.8) Monocytes # (Auto) 1.2 x10^3/uL (0.0-1.1) Eosinophils # (Auto) 0.0 x10^3/uL (0.0-0.7) Basophils # (Auto) 0.1 x10^3/uL (0.0-0.2) Sodium Level 148 mmol/L (136-145) Potassium Level 5.4 mmol/L (3.5-5.1) Chloride Level 114 mmol/L (98-107) Carbon Dioxide Level 33 mmol/L (21-32) Anion Gap 1 (6-14) Blood Urea Nitrogen 65 mg/dL (8-26) Creatinine 1.5 mg/dL (0.7-1.3) Estimated GFR (Cockcroft-Gault) 60.2 Glucose Level 132 mg/dL (70-99) Calcium Level 7.7 mg/dL (8.5-10.1) Phosphorus Level 3.3 mg/dL (2.6-4.7) Magnesium Level 2.2 mg/dL (1.8-2.4) Test 06/25/19 06:01 06/25/19 08:30 06/25/19 08:32 06/25/19 09:37 Glucose (Fingerstick) 125 mg/dL (70-99) 154 mg/dL (70-99) 175 mg/dL (70-99) O2 Saturation 97 % (92-99) Arterial Blood pH 7.32 (7.35-7.45) Arterial Blood pCO2 at Patient Temp 55 mmHg (35-46) Arterial Blood pO2 at Patient Temp 101 mmHg (75-108) Arterial Blood HCO3 28 mmol/L (21-28) Arterial Blood Base Excess 1 mmol/L (-3-3) FiO2 40 Test 06/25/19 10:45 Glucose (Fingerstick) 179 mg/dL (70-99) Medications Active Scripts Medications Dose Route/Sig Max Daily Dose Days Date Category Comments 06/24 CXR reviewed no change / poor insp effort ct abdomen 06/21 report reviewed Impression . IMPRESSION: 1. Acute hypoxemic respiratory failure, multifactorial. 2. Acute gallstone pancreatitis./ Necrosis. s/p Exploratory laparotomy, pancreatic necrosectomy, cholecystostomy tube placement, Gastrostomy placement with jejunal extension, tracheostomy placement (specifically 8 shiley cuffed) 06/21 3. Acute kidney failure. improving 4. Metabolic toxic encephalopathy. 5. Hyperkalemia.corrected 6. Metabolic / respiratory acidosis 7. Hypocalcemia. 8. POSSIBLE ABD COMPARTMENT SYNDROME , s/p Exp lap 9. HEP B S POSITIVE 10. Hypernatremia 11. LLL small effusion, monitor Plan . AC mode PRN suctioning, NEBS Pain control: fent gtt Follow CXR/ABG ABX per ID ct abdomen report reviewed 06/21. Follow surgery recs will start weaning sedation/ dc paralytics per surgery and assess for CPAP trial TPN per surgery D/W RN/RT TAYA PEREIRA MD Jun 25, 2019 10:57
--- NOTE | 2019-06-25 10:58 | PDOC ---
Renal-Progress Notes Subjective Notes Notes INTUBATED History of Present Illness Hx of present illness STABLE Vitals Vitals Vital Signs Date Time Temp Pulse Resp B/P (MAP) Pulse Ox O2 Delivery O2 Flow Rate FiO2 06/25/19 09:41 97 Ventilator 06/25/19 08:28 18 06/25/19 08:00 116 196/78 (117) 06/25/19 06:00 100.4 100.4 06/24/19 12:34 3.0 Weight Weight [ ] I.O. Intake and Output Intake and Output 06/25/19 07:00 Intake Total 4876.7 ml Output Total 3780 ml Balance 1096.7 ml IV Total 4876.7 ml Output Urine Total 2665 ml Gastric Drainage Total 125 ml Drainage Total 990 ml Labs Labs Laboratory Tests Test 06/24/19 11:41 06/24/19 11:45 06/24/19 12:48 06/24/19 14:03 Glucose (Fingerstick) 145 mg/dL (70-99) 179 mg/dL (70-99) 132 mg/dL (70-99) White Blood Count 13.7 x10^3/uL (4.0-11.0) Red Blood Count 2.76 x10^6/uL (4.30-5.70) Hemoglobin 8.0 g/dL (13.0-17.5) Hematocrit 25.1 % (39.0-53.0) Mean Corpuscular Volume 91 fL (79-100) Mean Corpuscular Hemoglobin 29 pg (25-35) Mean Corpuscular Hemoglobin Concent 32 g/dL (31-37) Red Cell Distribution Width 14.5 % (11.5-14.5) Platelet Count 215 x10^3/uL (140-400) Neutrophils (%) (Auto) 89 % (31-73) Lymphocytes (%) (Auto) 3 % (24-48) Monocytes (%) (Auto) 7 % (0-9) Eosinophils (%) (Auto) 0 % (0-3) Basophils (%) (Auto) 1 % (0-3) Neutrophils # (Auto) 12.2 x10^3/uL (1.8-7.7) Lymphocytes # (Auto) 0.4 x10^3/uL (1.0-4.8) Monocytes # (Auto) 0.9 x10^3/uL (0.0-1.1) Eosinophils # (Auto) 0.0 x10^3/uL (0.0-0.7) Basophils # (Auto) 0.2 x10^3/uL (0.0-0.2) Sodium Level 151 mmol/L (136-145) Potassium Level 5.3 mmol/L (3.5-5.1) Chloride Level 116 mmol/L (98-107) Carbon Dioxide Level 30 mmol/L (21-32) Anion Gap 5 (6-14) Blood Urea Nitrogen 56 mg/dL (8-26) Creatinine 1.4 mg/dL (0.7-1.3) Estimated GFR (Cockcroft-Gault) 65.2 Glucose Level 148 mg/dL (70-99) Calcium Level 7.5 mg/dL (8.5-10.1) Test 06/24/19 15:14 06/24/19 16:23 06/24/19 17:32 06/24/19 18:44 Glucose (Fingerstick) 126 mg/dL (70-99) 128 mg/dL (70-99) 155 mg/dL (70-99) 150 mg/dL (70-99) Test 06/24/19 19:56 06/24/19 21:02 06/24/19 22:05 06/24/19 23:13 Glucose (Fingerstick) 142 mg/dL (70-99) 187 mg/dL (70-99) 186 mg/dL (70-99) 197 mg/dL (70-99) Test 06/25/19 01:22 06/25/19 02:35 06/25/19 03:48 06/25/19 06:00 Glucose (Fingerstick) 195 mg/dL (70-99) 151 mg/dL (70-99) 132 mg/dL (70-99) White Blood Count 13.9 x10^3/uL (4.0-11.0) Red Blood Count 2.65 x10^6/uL (4.30-5.70) Hemoglobin 7.6 g/dL (13.0-17.5) Hematocrit 24.2 % (39.0-53.0) Mean Corpuscular Volume 91 fL (79-100) Mean Corpuscular Hemoglobin 29 pg (25-35) Mean Corpuscular Hemoglobin Concent 32 g/dL (31-37) Red Cell Distribution Width 14.7 % (11.5-14.5) Platelet Count 239 x10^3/uL (140-400) Neutrophils (%) (Auto) 84 % (31-73) Lymphocytes (%) (Auto) 7 % (24-48) Monocytes (%) (Auto) 8 % (0-9) Eosinophils (%) (Auto) 0 % (0-3) Basophils (%) (Auto) 1 % (0-3) Neutrophils # (Auto) 11.7 x10^3/uL (1.8-7.7) Lymphocytes # (Auto) 0.9 x10^3/uL (1.0-4.8) Monocytes # (Auto) 1.2 x10^3/uL (0.0-1.1) Eosinophils # (Auto) 0.0 x10^3/uL (0.0-0.7) Basophils # (Auto) 0.1 x10^3/uL (0.0-0.2) Sodium Level 148 mmol/L (136-145) Potassium Level 5.4 mmol/L (3.5-5.1) Chloride Level 114 mmol/L (98-107) Carbon Dioxide Level 33 mmol/L (21-32) Anion Gap 1 (6-14) Blood Urea Nitrogen 65 mg/dL (8-26) Creatinine 1.5 mg/dL (0.7-1.3) Estimated GFR (Cockcroft-Gault) 60.2 Glucose Level 132 mg/dL (70-99) Calcium Level 7.7 mg/dL (8.5-10.1) Phosphorus Level 3.3 mg/dL (2.6-4.7) Magnesium Level 2.2 mg/dL (1.8-2.4) Test 06/25/19 06:01 06/25/19 08:30 06/25/19 08:32 06/25/19 09:37 Glucose (Fingerstick) 125 mg/dL (70-99) 154 mg/dL (70-99) 175 mg/dL (70-99) O2 Saturation 97 % (92-99) Arterial Blood pH 7.32 (7.35-7.45) Arterial Blood pCO2 at Patient Temp 55 mmHg (35-46) Arterial Blood pO2 at Patient Temp 101 mmHg (75-108) Arterial Blood HCO3 28 mmol/L (21-28) Arterial Blood Base Excess 1 mmol/L (-3-3) FiO2 40 Test 06/25/19 10:45 Glucose (Fingerstick) 179 mg/dL (70-99) Micro Micro Microbiology 06/22/19 Aerobic and Anaerobic Culture, Resulted Pending 06/22/19 Anaerobic Culture Result 1 (CARINE), Resulted Pending 06/22/19 Aerobic Culture, Resulted Pending 06/22/19 Aerobic Culture Result 1 (CARINE), Resulted Pending 06/22/19 Gram Stain - Final, Resulted 06/22/19 Gram Stain Result 1 (CARINE) - Final, Resulted 06/22/19 Gram Stain Result 2 (CARINE) - Final, Resulted 06/20/19 Blood Culture - Final, Complete NO GROWTH AFTER 5 DAYS Review of Systems Constitutional: yes: unresponsive Physical Exam General Appearance: no apparent distress Skin: warm Respiratory: decreased breath sounds Heart: S1S2 Abdomen: distension, other (NO BS) Genitourinary: bladder flat Extremities: pulses present Neurology: other (sedated) Assessment Assessment IMP FABIOLA - IMPROVED WITH CR OF 1.5-OFF HD NOW LEUCOCYTOSIS GB STONE PANCREATITIS ACUTE RESP FAILURE MET ACIDOSIS S/P EXP LAP AND THEN PANCREATIC NECROSECTOMY WITH DRAINS HYPERNATREMIA HYPERKALEMIA PLAN CONT TPN-CHANGES PER PHARMACY CONT ANTIBIOTICS MONITOR RENAL FX HOPEFULLY NO FURTHER HD NEEDED D/W DR PEREIRA POOR PROGNOSIS HALFWAY WILL FOLLOW BERE QUIROZ MD Jun 25, 2019 10:58
[2019-06-25] MEDS: TPN PER PHARMACY MC PRN (14:43)
--- NOTE | 2019-06-25 14:45 | NUR ---
Pharmacy TPN Dosing Note S: CHRISTOPHER NEWSOME is a 49 year old M Currently receiving Central Continuous TPN started 06/19/19 B:Pertinent PMH: PANCREATITIS Height: 5 feet, 9 inches Weight: 110.2 kg Current diet: NPO LABS: Sodium: 148 Potassium: 5.4 Chloride: 114 Calcium: 7.7 Corrected Calcium: 9.86 Magnesium: 2.2 CO2: 33 SCr: 1.5 Glucose: 132-154 Albumin: 1.3 AST: 55 ALT: 49 TPN FORMULA: TPN TYPE: Central Continuous AMINO ACIDS: 145 gm DEXTROSE: 200 gm LIPIDS: 10 gm SODIUM PHOSPHATE: 10 mmol MAGNESIUM: 5 mEq CALCIUM: 15 mEq MULTIPLE VITAMIN: 10 ml TRACE ELEMENTS: MTE 5 0.5 ml(s) TPN PLAN: Continue same R: Continue TPN Will monitor electrolytes, glucose, and tolerance to TPN. Azul Rodriges [facility], 06/25/19 [id number]
[2019-06-25] MEDS: INSULIN GLARGINE SYRINGE. SQ SCH (21:00)
[2019-06-25] MEDS ORDERED: [UNRECOGNIZED DRUG - OTHER] IV SCH ×8 (22:00)
[2019-06-25] MEDS ORDERED: AMINO ACID IV SCH ×8 (22:00)
[2019-06-25] MEDS ORDERED: TOTAL PARENTERAL NUTRITION IV SCH ×8 (22:00)
[2019-06-25] MEDS ORDERED: DEXTROSE 70% IV SCH ×8 (22:00)
[2019-06-25] MEDS: IV NORMAL SALINE 1000ML BAG 1,000 ML IV SCH (22:27)
[2019-06-26] VITALS (30 sets, daily range): BP systolic 94–169; BP diastolic 35–73
[2019-06-26] MEDS: MEROPENEM 500 MG in IV NORMAL SALINE 50ML 50 ML IV SCH ×4 (00:38→17:26)
[2019-06-26] MEDS: MIDAZOLAM HCL 50 MG in IV NORMAL SALINE 50ML 50 ML IV PRN ×3 (02:39→19:35)
[2019-06-26] MEDS: INSULIN REGULAR VIAL 100 UNIT in IV NORMAL SALINE 100ML 100 ML IV PRN ×2 (02:39→20:07)
[2019-06-26] MEDS: fentaNYL HIGH DOSE PCA 55 ML IV PRN ×2 (02:40→23:06)
[2019-06-26] MEDS: LABETALOL 20 MG/4 ML DISP.SYRIN. IVP PRN ×3 (02:41→14:44)
[2019-06-26] MEDS: ACETAMINOPHEN 650 MG SUPP.RECT. PR PRN ×2 (04:00→15:41)
[2019-06-26] MEDS: INSULIN LISPRO 300 UNITS/3 ML VIAL. SQ SCH ×6 (04:00→19:34)
[2019-06-26] MEDS: IV DEXTROSE 5% 1,000 ML IV SCH ×2 (04:20→11:44)
[2019-06-26 05:59] LABS: CALCIUM 7.5 mg/dL (8.5-10.1); CREATININE 1.4 mg/dL (0.7-1.3); GFR 65.2; POTASSIUM 4.4 mmol/L (3.5-5.1)
[2019-06-26 06:03] LABS: MAGNESIUM 2.2 mg/dL (1.8-2.4)
[2019-06-26] MEDS: PANTOPRAZOLE IV PUSH 40 MG VIAL. IVP SCH ×2 (06:07→17:25)
[2019-06-26] MEDS: ENOXAPARIN 40 MG/0.4 ML SYRINGE. SQ SCH (06:08)
[2019-06-26 06:18] LABS: BASO % 0 % (0-3); EOS % 0 % (0-3); HEMATOCRIT 21.6 % (39.0-53.0); LYMPH # 1.1 x10^3/uL (1.0-4.8); LYMPH % 10 % (24-48); MEAN CORPUSCULAR HEMOGLOBIN 29 pg (25-35); MEAN CORPUSCULAR HGB CONC 33 g/dL (31-37); MEAN CORPUSCULAR VOLUME 89 fL (79-100); MONO # 1.2 x10^3/uL (0.0-1.1); MONO % 10 % (0-9); NEUT # 9.1 x10^3/uL (1.8-7.7); NEUT % 79 % (31-73); PLATELET COUNT 234 x10^3/uL (140-400); RED BLOOD COUNT 2.42 x10^6/uL (4.30-5.70); RED CELL DISTRIBUTION WIDTH 13.9 % (11.5-14.5); WHITE BLOOD COUNT 11.5 x10^3/uL (4.0-11.0)
[2019-06-26] MEDS: ALBUTEROL SULFATE 2.5 MG/3 ML NEBU. NEB SCH ×4 (07:51→20:33)
--- NOTE | 2019-06-26 07:58 | RAD ---
Examination: PORTABLE CHEST 1V History: On ventilator. Comparison/Correlation: 06/24/2019 AP view of the chest Findings: Portable semiupright frontal view of the chest was obtained. Tracheostomy tube is in place. Enteric tube is in place. Epicardial leads noted. Right internal jugular catheter ends overlying the right atrium. Right internal jugular dialysis catheter also seen overlying the right atrium. No pneumothorax. Limited pulmonary inflation is present. Pulmonary vasculature is somewhat congested in appearance although there is very limited pulmonary inflation. Minimal left basilar atelectasis is present. Left basilar retrocardiac atelectatic consolidation in particular is improved in the interval. Small left pleural effusion again noted. Impression: Improved pulmonary aeration. Electronically signed by: Lakhwinder Dennis MD (06/26/2019 7:55 AM) [id number]
[2019-06-26 08:11] LABS: BASE EXCESS ABG 2 mmol/L (-3-3); HCO3 ABG 26 mmol/L (21-28); PCO2 ABG 40 mmHg (35-46); PO2 ABG 105 mmHg (75-108); SAT O2 ABG 97 % (92-99)
--- NOTE | 2019-06-26 08:26 | PDOC ---
Infectious Disease Note Subjective Subjective sedated on vent ROS ROS no n/v/d/ does have fever Vital Sign Vital Signs Vital Signs Date Time Temp Pulse Resp B/P (MAP) Pulse Ox O2 Delivery O2 Flow Rate FiO2 06/26/19 07:52 99 Ventilator 06/26/19 07:00 100.0 106 22 124/52 (76) 100.0 Physical Exam PHYSICAL EXAM GENERAL: Sedated, orally intubated on vent, HEENT: Pupils equal, small. OGT/ETT in place NECK: Supple no JVD LUNGS: Diminished aeration bases HEART: S1, S2, regular, no murmurs. ABDOMEN: Distended, fairly tight, bowel sounds hypoactive : [place] EXTREMITIES: Trace edema, no cyanosis. SCDs bilaterally SKIN: Warm, dry. 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 DIRECTOR BIOMEDICAL ENGINEERING: Sedated RIJ & RIJ/HD catheter (06/19) Labs Lab Laboratory Tests Test 06/25/19 08:30 06/25/19 08:32 06/25/19 09:37 06/25/19 10:45 O2 Saturation 97 % (92-99) Arterial Blood pH 7.32 (7.35-7.45) Arterial Blood pCO2 at Patient Temp 55 mmHg (35-46) Arterial Blood pO2 at Patient Temp 101 mmHg (75-108) Arterial Blood HCO3 28 mmol/L (21-28) Arterial Blood Base Excess 1 mmol/L (-3-3) FiO2 40 Glucose (Fingerstick) 154 mg/dL (70-99) 175 mg/dL (70-99) 179 mg/dL (70-99) Test 06/25/19 11:36 06/25/19 12:41 06/25/19 13:45 06/25/19 14:51 Glucose (Fingerstick) 190 mg/dL (70-99) 184 mg/dL (70-99) 136 mg/dL (70-99) 114 mg/dL (70-99) Test 06/25/19 15:42 06/25/19 16:58 06/25/19 18:00 06/25/19 19:14 Glucose (Fingerstick) 115 mg/dL (70-99) 115 mg/dL (70-99) 107 mg/dL (70-99) 108 mg/dL (70-99) Test 06/25/19 20:08 06/25/19 21:08 06/25/19 22:23 06/25/19 23:06 Glucose (Fingerstick) 110 mg/dL (70-99) 118 mg/dL (70-99) 166 mg/dL (70-99) 140 mg/dL (70-99) Test 06/26/19 00:11 06/26/19 01:16 06/26/19 02:23 06/26/19 03:14 Glucose (Fingerstick) 132 mg/dL (70-99) 129 mg/dL (70-99) 118 mg/dL (70-99) 117 mg/dL (70-99) Test 06/26/19 04:03 06/26/19 05:00 06/26/19 05:06 06/26/19 06:11 Glucose (Fingerstick) 134 mg/dL (70-99) 140 mg/dL (70-99) 134 mg/dL (70-99) White Blood Count 11.5 x10^3/uL (4.0-11.0) Red Blood Count 2.42 x10^6/uL (4.30-5.70) Hemoglobin 7.0 g/dL (13.0-17.5) Hematocrit 21.6 % (39.0-53.0) Mean Corpuscular Volume 89 fL (79-100) Mean Corpuscular Hemoglobin 29 pg (25-35) Mean Corpuscular Hemoglobin Concent 33 g/dL (31-37) Red Cell Distribution Width 13.9 % (11.5-14.5) Platelet Count 234 x10^3/uL (140-400) Neutrophils (%) (Auto) 79 % (31-73) Lymphocytes (%) (Auto) 10 % (24-48) Monocytes (%) (Auto) 10 % (0-9) Eosinophils (%) (Auto) 0 % (0-3) Basophils (%) (Auto) 0 % (0-3) Neutrophils # (Auto) 9.1 x10^3/uL (1.8-7.7) Lymphocytes # (Auto) 1.1 x10^3/uL (1.0-4.8) Monocytes # (Auto) 1.2 x10^3/uL (0.0-1.1) Eosinophils # (Auto) 0.0 x10^3/uL (0.0-0.7) Basophils # (Auto) 0.0 x10^3/uL (0.0-0.2) Sodium Level 145 mmol/L (136-145) Potassium Level 4.4 mmol/L (3.5-5.1) Chloride Level 111 mmol/L (98-107) Carbon Dioxide Level 28 mmol/L (21-32) Anion Gap 6 (6-14) Blood Urea Nitrogen 62 mg/dL (8-26) Creatinine 1.4 mg/dL (0.7-1.3) Estimated GFR (Cockcroft-Gault) 65.2 Glucose Level 141 mg/dL (70-99) Calcium Level 7.5 mg/dL (8.5-10.1) Phosphorus Level 3.0 mg/dL (2.6-4.7) Magnesium Level 2.2 mg/dL (1.8-2.4) Test 06/26/19 07:17 Glucose (Fingerstick) 146 mg/dL (70-99) Micro Microbiology 06/20/19 Blood Culture - Preliminary, Resulted NO GROWTH AFTER 2 DAYS Objective Assessment Fever - Leukocytosis Gallbladder stone pancreatitis - lipase 475 06/15.- better. CT 06/15 - Fluid collection along the inferior aspect of the stomach measures 9.6 x 4.0 cm. Loculated fluid collection along the anterior aspect of the pancreas measures 3.0 x 2.6 cm -per surgery Sepsis from GI - cult neg Acute Resp failure - intubated Lactic acidosis. Acute kidney injury previously requiring dialysis - now with improved UOP, HDC (06/13) still in place Metabolic acidosis. Hypocalcemia Exploratory laparotomy, pancreatic necrosectomy, cholecystostomy tube placement, Gastrostomy placement with jejunal extension, tracheostomy placement 06/21 Plan Plan of Care Continue merrem, micafungin (06/19) and Zyvox( ) BC neg to date Maintain aspiration precaution. will reculture D/w nursing Critically ill KRISTIAN GOODMAN MD Jun 26, 2019 08:26
[2019-06-26] MEDS: MICAFUNGIN 100 MG in IV DEXTROSE 5% 100ML 100 ML IV SCH (08:35)
[2019-06-26] MEDS: CHLORHEXIDINE 0.12% 15 ML MOUTHWASH. MM SCH ×2 (08:37→21:03)
--- NOTE | 2019-06-26 09:41 | NUR ---
SS following up with discharge planning. SS phoned and faxed clinical updates to [facility], ; fax [phone]. SS will continue to follow.
--- NOTE | 2019-06-26 09:48 | PDOC ---
Objective: Objective: D/w nurse - awake overnight counselor wondering if passing gallstones through tube, decreased abd pressure, getting transfused but no obvious bleeding. Vital Signs: Vital Signs Date Time Temp Pulse Resp B/P (MAP) Pulse Ox O2 Delivery O2 Flow Rate FiO2 06/26/19 09:30 98 Ventilator 06/26/19 07:00 100.0 106 22 124/52 (76) 100.0 Labs: Laboratory Tests Test 06/25/19 10:45 06/25/19 11:36 06/25/19 12:41 06/25/19 13:45 Glucose (Fingerstick) 179 mg/dL 190 mg/dL 184 mg/dL 136 mg/dL Test 06/25/19 14:51 06/25/19 15:42 06/25/19 16:58 06/25/19 18:00 Glucose (Fingerstick) 114 mg/dL 115 mg/dL 115 mg/dL 107 mg/dL Test 06/25/19 19:14 06/25/19 20:08 06/25/19 21:08 06/25/19 22:23 Glucose (Fingerstick) 108 mg/dL 110 mg/dL 118 mg/dL 166 mg/dL Test 06/25/19 23:06 06/26/19 00:11 06/26/19 01:16 06/26/19 02:23 Glucose (Fingerstick) 140 mg/dL 132 mg/dL 129 mg/dL 118 mg/dL Test 06/26/19 03:14 06/26/19 04:03 06/26/19 05:00 06/26/19 05:06 Glucose (Fingerstick) 117 mg/dL 134 mg/dL 140 mg/dL White Blood Count 11.5 x10^3/uL Red Blood Count 2.42 x10^6/uL Hemoglobin 7.0 g/dL Hematocrit 21.6 % Mean Corpuscular Volume 89 fL Mean Corpuscular Hemoglobin 29 pg Mean Corpuscular Hemoglobin Concent 33 g/dL Red Cell Distribution Width 13.9 % Platelet Count 234 x10^3/uL Neutrophils (%) (Auto) 79 % Lymphocytes (%) (Auto) 10 % Monocytes (%) (Auto) 10 % Eosinophils (%) (Auto) 0 % Basophils (%) (Auto) 0 % Neutrophils # (Auto) 9.1 x10^3/uL Lymphocytes # (Auto) 1.1 x10^3/uL Monocytes # (Auto) 1.2 x10^3/uL Eosinophils # (Auto) 0.0 x10^3/uL Basophils # (Auto) 0.0 x10^3/uL Sodium Level 145 mmol/L Potassium Level 4.4 mmol/L Chloride Level 111 mmol/L Carbon Dioxide Level 28 mmol/L Anion Gap 6 Blood Urea Nitrogen 62 mg/dL Creatinine 1.4 mg/dL Estimated GFR (Cockcroft-Gault) 65.2 Glucose Level 141 mg/dL Calcium Level 7.5 mg/dL Phosphorus Level 3.0 mg/dL Magnesium Level 2.2 mg/dL Test 06/26/19 06:11 06/26/19 07:17 06/26/19 08:18 Glucose (Fingerstick) 134 mg/dL 146 mg/dL 139 mg/dL ORDERED: SPUTUM CULTURE COMMENTS: Has specimen been collected/obtained? Y Procedure Result - GRAM STAIN WHITE BLOOD CELLS Final None seen GRAM STAIN EPITHELIAL CELLS Final None seen GRAM STAIN RESULT 1 Final No organisms seen GRAM STAIN RESULT 2 Preliminary Test not performed GRAM STAIN RESULT 3 Preliminary Test not performed GRAM STAIN RESULT 4 Preliminary Test not performed GRAM STAIN EVALUATION Final Comment This specimen is of good quality and is acceptable for routine bacterial culture. Performed at: DA - [facility], [place], [place] [id number] [employer]amping Bench [employer] Maker: WOODY Roberson MD, Phone: [phone] SPUTUM CULTURE-LC PENDING Imaging: CXR 06/25 Impression: Improved pulmonary aeration. PE: GEN: intubated - staff present to draw blood cultures, RT present LUNGS: vent, clear anteriorly HEART: mildly tachycardic ABD: still distended and tight - slight improvement, drains NEURO/PSYCH: sedated A/P: S/p pancreatic necrosectomy Fever -- Continue support. Hemodynamically unstable?: Yes Is patient in severe pain?: Yes Is NPO status required?: Yes PAXTON ALEXANDER Jun 26, 2019 09:48
[2019-06-26] MEDS: TPN PER PHARMACY MC PRN (10:02)
--- NOTE | 2019-06-26 10:09 | NUR ---
Pharmacy TPN Dosing Note S: CHRISTOPHER NEWSOME is a 49 year old M Currently receiving Central Continuous TPN started 06/19/19 B:Pertinent PMH: PANCREATITIS Height: 5 feet, 9 inches Weight: 108.8 kg Current diet: NPO LABS: Sodium: 145 Potassium: 4.4 Chloride: 111 Calcium: 7.5 Corrected Calcium: 9.66 Magnesium: 2.2 CO2: 28 SCr: 1.4 Glucose: 134-141 Albumin: 1.3 AST: 55 ALT: 49 TPN FORMULA: TPN TYPE: Central Continuous AMINO ACIDS: 145 gm DEXTROSE: 200 gm LIPIDS: 20 gm SODIUM PHOSPHATE: 10 mmol MAGNESIUM: 5 mEq CALCIUM: 15 mEq MULTIPLE VITAMIN: 10 ml TRACE ELEMENTS: MTE 5 0.5 ml(s) TPN PLAN: Continue same R: Continue TPN Will monitor electrolytes, glucose, and tolerance to TPN. Azul Rodriges [facility], 06/26/19 [id number]
[2019-06-26 10:24] LABS: FIO2 ABG 40%
--- NOTE | 2019-06-26 11:58 | PDOC ---
[employer] PROGRESS NOTE Chief Complaint Chief Complaint Acute hypoxemic respiratory failure, multifactorial. Status post tracheostomy 5 drains Acute gallstone pancreatitis./ Necrosis Acute kidney failure. improving Metabolic toxic encephalopathy. Hyperkalemia.corrected Metabolic / respiratory acidosis Hypocalcemia. Hepatitis B Hypernatremia LLL small effusion, monitor Exploratory laparotomy, pancreatic necrosectomy, cholecystostomy tube placement, Gastrostomy placement with jejunal extension, tracheostomy placement (specifically 8 shiley cuffed) Specimans Obtained: pancreatic necrosis, saponification, gallstones Findings: diffuse peritonitis, 1.5 liters of ascites, diffuse saponification, viable viscera, mulitiple gallstones, normal liver History of Present Illness History of Present Illness [id number] Patient seen and examined in the ICU He remains intubated Dr. Mcbride is here with me Discussed with RN Discussed with patient's brother Chart reviewed Patient remains mechanically intubated and sedated Extremely critically ill [id number] Patient seen and examined in the ICU He remains intubated and now on multiple drips Vent settings as follows assist-control/18/500/40% Discussed with RN Discussed with Dr. Smyth Chart reviewed He is critically ill [id number] Patient seen and examined in the ICU He is on the ventilator and sedated and paralyzed Discussed with RN Discussed with his Chart reviewed Exploratory laparotomy, pancreatic necrosectomy, cholecystostomy tube placement, Gastrostomy placement with jejunal extension, tracheostomy placement (specifically 8 shiley cuffed) 06/24/2019 Pt seen and examined in the ICU. Discussed with RN, Chart reviewed. Pt was sedated and currently being tried on room air. Ventilator setting as follows: AC/18/500/40% with peep of 5, but not in use during observation. Currently has [address] Vitals/I&O Vitals/I&O: Vital Signs Date Time Temp Pulse Resp B/P (MAP) Pulse Ox O2 Delivery O2 Flow Rate FiO2 06/26/19 11:50 99.9 96 26 137/54 99.9 06/26/19 11:06 93 Ventilator I & O 06/25/19 06/25/19 06/26/19 15:00 23:00 07:00 Intake Total 562.63 ml 2419.34 ml 2113 ml Output Total 1655 ml 1605 ml 1650 ml Balance -1092.37 ml 814.34 ml 463 ml Physical Exam Physical Exam: GENERAL: Sedated, orally intubated on vent, HEENT: Pupils equal, small. OGT/ETT in place NECK: Supple no JVD LUNGS: Diminished aeration bases HEART: S1, S2, regular, no murmurs. ABDOMEN: Distended, fairly tight, bowel sounds hypoactive : [place] EXTREMITIES: Trace edema, no cyanosis. SCDs bilaterally SKIN: Warm, dry. 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 STOCK ORDER LISTER: Sedated RIJ & RIJ/HD catheter (06/19) General: No acute distress Heart: Other (ST, rate near 125-130) Lungs: Clear Abdomen: Soft, Other (distended, tubes in place and functional) Extremities: No edema Skin: No significant lesion Labs Labs: Laboratory Tests Test 06/25/19 12:41 06/25/19 13:45 06/25/19 14:51 06/25/19 15:42 Glucose (Fingerstick) 184 mg/dL (70-99) 136 mg/dL (70-99) 114 mg/dL (70-99) 115 mg/dL (70-99) Test 06/25/19 16:58 06/25/19 18:00 06/25/19 19:14 06/25/19 20:08 Glucose (Fingerstick) 115 mg/dL (70-99) 107 mg/dL (70-99) 108 mg/dL (70-99) 110 mg/dL (70-99) Test 06/25/19 21:08 06/25/19 22:23 06/25/19 23:06 06/26/19 00:11 Glucose (Fingerstick) 118 mg/dL (70-99) 166 mg/dL (70-99) 140 mg/dL (70-99) 132 mg/dL (70-99) Test 06/26/19 01:16 06/26/19 02:23 06/26/19 03:14 06/26/19 04:03 Glucose (Fingerstick) 129 mg/dL (70-99) 118 mg/dL (70-99) 117 mg/dL (70-99) 134 mg/dL (70-99) Test 06/26/19 05:00 06/26/19 05:06 06/26/19 06:11 06/26/19 07:17 White Blood Count 11.5 x10^3/uL (4.0-11.0) Red Blood Count 2.42 x10^6/uL (4.30-5.70) Hemoglobin 7.0 g/dL (13.0-17.5) Hematocrit 21.6 % (39.0-53.0) Mean Corpuscular Volume 89 fL (79-100) Mean Corpuscular Hemoglobin 29 pg (25-35) Mean Corpuscular Hemoglobin Concent 33 g/dL (31-37) Red Cell Distribution Width 13.9 % (11.5-14.5) Platelet Count 234 x10^3/uL (140-400) Neutrophils (%) (Auto) 79 % (31-73) Lymphocytes (%) (Auto) 10 % (24-48) Monocytes (%) (Auto) 10 % (0-9) Eosinophils (%) (Auto) 0 % (0-3) Basophils (%) (Auto) 0 % (0-3) Neutrophils # (Auto) 9.1 x10^3/uL (1.8-7.7) Lymphocytes # (Auto) 1.1 x10^3/uL (1.0-4.8) Monocytes # (Auto) 1.2 x10^3/uL (0.0-1.1) Eosinophils # (Auto) 0.0 x10^3/uL (0.0-0.7) Basophils # (Auto) 0.0 x10^3/uL (0.0-0.2) Sodium Level 145 mmol/L (136-145) Potassium Level 4.4 mmol/L (3.5-5.1) Chloride Level 111 mmol/L (98-107) Carbon Dioxide Level 28 mmol/L (21-32) Anion Gap 6 (6-14) Blood Urea Nitrogen 62 mg/dL (8-26) Creatinine 1.4 mg/dL (0.7-1.3) Estimated GFR (Cockcroft-Gault) 65.2 Glucose Level 141 mg/dL (70-99) Calcium Level 7.5 mg/dL (8.5-10.1) Phosphorus Level 3.0 mg/dL (2.6-4.7) Magnesium Level 2.2 mg/dL (1.8-2.4) Glucose (Fingerstick) 140 mg/dL (70-99) 134 mg/dL (70-99) 146 mg/dL (70-99) Test 06/26/19 07:35 06/26/19 08:18 06/26/19 10:29 06/26/19 11:40 O2 Saturation 97 % (92-99) Arterial Blood pH 7.43 (7.35-7.45) Arterial Blood pCO2 at Patient Temp 40 mmHg (35-46) Arterial Blood pO2 at Patient Temp 105 mmHg (75-108) Arterial Blood HCO3 26 mmol/L (21-28) Arterial Blood Base Excess 2 mmol/L (-3-3) FiO2 40% Glucose (Fingerstick) 139 mg/dL (70-99) 181 mg/dL (70-99) 168 mg/dL (70-99) Review of Systems Review of Systems: Unable to obtain Assessment and Plan Assessmemt and Plan Problems Medical Problems: (1) Acute pancreatitis Status: Acute (2) Nausea & vomiting Status: Acute Acute hypoxemic respiratory failure, multifactorial. Status post tracheostomy 5 drains Acute gallstone pancreatitis./ Necrosis Acute kidney failure. improving Metabolic toxic encephalopathy. Hyperkalemia.corrected Metabolic / respiratory acidosis Hypocalcemia. Hepatitis B Hypernatremia LLL small effusion, monitor Exploratory laparotomy, pancreatic necrosectomy, cholecystostomy tube placement, Gastrostomy placement with jejunal extension, tracheostomy placement (specifically 8 shiley cuffed) Plan: Continue ICU monitoring Continue to monitor intraabdominal pressures DVT prophylaxis appreciate GI consult Vent weaning IV antibiotics IV paralytics and IV sedatives Trend labs Wound care We are managing 5 drains He remains critically ill Prognosis extremely guarded at best Total time 33 minutes Comment Review of Relevant I have reviewed the following items alexandra (where applicable) has been applied. Medications: Current Medications Medications (Trade) Dose Ordered Sig/Jesse Route PRN Reason Start Time Stop Time Status Last Admin Dose Admin Sodium Phosphate 10 mmol/Magnesium Sulfate 5 meq/ Calcium Gluconate 15 meq/ Multivitamins 10 ml/Chromium/ Copper/Manganese/ Seleni/Zn 0.5 ml/ Total Parenteral Nutrition/Amino Acids/Dextrose/ Fat Emulsion Intravenous 1,920 ml @ 80 mls/hr TPN CONT IV 06/25/19 22:00 06/26/19 21:59 06/25/19 22:27 Hemodynamically unstable?: Yes Is patient in severe pain?: Yes Is NPO status required?: Yes JUSTIN WORKMAN III DO Jun 26, 2019 11:57
--- NOTE | 2019-06-26 12:00 | PDOC ---
Renal-Progress Notes Subjective Notes Notes REMAINS ON THE VENT History of Present Illness Hx of present illness STABLE Vitals Vitals Vital Signs Date Time Temp Pulse Resp B/P (MAP) Pulse Ox O2 Delivery O2 Flow Rate FiO2 06/26/19 11:50 99.9 96 26 137/54 99.9 06/26/19 11:06 93 Ventilator Weight Weight [ ] I.O. Intake and Output Intake and Output 06/26/19 07:00 Intake Total 5094.97 ml Output Total 4910 ml Balance 184.97 ml IV Total 5094.97 ml Output Urine Total 3360 ml Gastric Drainage Total 75 ml Drainage Total 1475 ml Labs Labs Laboratory Tests Test 06/25/19 12:41 06/25/19 13:45 06/25/19 14:51 06/25/19 15:42 Glucose (Fingerstick) 184 mg/dL (70-99) 136 mg/dL (70-99) 114 mg/dL (70-99) 115 mg/dL (70-99) Test 06/25/19 16:58 06/25/19 18:00 06/25/19 19:14 06/25/19 20:08 Glucose (Fingerstick) 115 mg/dL (70-99) 107 mg/dL (70-99) 108 mg/dL (70-99) 110 mg/dL (70-99) Test 06/25/19 21:08 06/25/19 22:23 06/25/19 23:06 06/26/19 00:11 Glucose (Fingerstick) 118 mg/dL (70-99) 166 mg/dL (70-99) 140 mg/dL (70-99) 132 mg/dL (70-99) Test 06/26/19 01:16 06/26/19 02:23 06/26/19 03:14 06/26/19 04:03 Glucose (Fingerstick) 129 mg/dL (70-99) 118 mg/dL (70-99) 117 mg/dL (70-99) 134 mg/dL (70-99) Test 06/26/19 05:00 06/26/19 05:06 06/26/19 06:11 06/26/19 07:17 White Blood Count 11.5 x10^3/uL (4.0-11.0) Red Blood Count 2.42 x10^6/uL (4.30-5.70) Hemoglobin 7.0 g/dL (13.0-17.5) Hematocrit 21.6 % (39.0-53.0) Mean Corpuscular Volume 89 fL (79-100) Mean Corpuscular Hemoglobin 29 pg (25-35) Mean Corpuscular Hemoglobin Concent 33 g/dL (31-37) Red Cell Distribution Width 13.9 % (11.5-14.5) Platelet Count 234 x10^3/uL (140-400) Neutrophils (%) (Auto) 79 % (31-73) Lymphocytes (%) (Auto) 10 % (24-48) Monocytes (%) (Auto) 10 % (0-9) Eosinophils (%) (Auto) 0 % (0-3) Basophils (%) (Auto) 0 % (0-3) Neutrophils # (Auto) 9.1 x10^3/uL (1.8-7.7) Lymphocytes # (Auto) 1.1 x10^3/uL (1.0-4.8) Monocytes # (Auto) 1.2 x10^3/uL (0.0-1.1) Eosinophils # (Auto) 0.0 x10^3/uL (0.0-0.7) Basophils # (Auto) 0.0 x10^3/uL (0.0-0.2) Sodium Level 145 mmol/L (136-145) Potassium Level 4.4 mmol/L (3.5-5.1) Chloride Level 111 mmol/L (98-107) Carbon Dioxide Level 28 mmol/L (21-32) Anion Gap 6 (6-14) Blood Urea Nitrogen 62 mg/dL (8-26) Creatinine 1.4 mg/dL (0.7-1.3) Estimated GFR (Cockcroft-Gault) 65.2 Glucose Level 141 mg/dL (70-99) Calcium Level 7.5 mg/dL (8.5-10.1) Phosphorus Level 3.0 mg/dL (2.6-4.7) Magnesium Level 2.2 mg/dL (1.8-2.4) Glucose (Fingerstick) 140 mg/dL (70-99) 134 mg/dL (70-99) 146 mg/dL (70-99) Test 06/26/19 07:35 06/26/19 08:18 06/26/19 10:29 06/26/19 11:40 O2 Saturation 97 % (92-99) Arterial Blood pH 7.43 (7.35-7.45) Arterial Blood pCO2 at Patient Temp 40 mmHg (35-46) Arterial Blood pO2 at Patient Temp 105 mmHg (75-108) Arterial Blood HCO3 26 mmol/L (21-28) Arterial Blood Base Excess 2 mmol/L (-3-3) FiO2 40% Glucose (Fingerstick) 139 mg/dL (70-99) 181 mg/dL (70-99) 168 mg/dL (70-99) Micro Micro Microbiology 06/23/19 - Final, Resulted 06/23/19 - Final, Resulted 06/23/19 - Final, Resulted 06/23/19 - Preliminary, Resulted 06/23/19 - Preliminary, Resulted 06/23/19 - Preliminary, Resulted 06/23/19 Gram Stain Evaluation - Final, Resulted 06/23/19 Sputum Culture, Resulted Pending 06/22/19 Aerobic and Anaerobic Culture, Resulted Pending 06/22/19 Anaerobic Culture Result 1 (CARINE), Resulted Pending 06/22/19 Aerobic Culture, Resulted Pending 06/22/19 Aerobic Culture Result 1 (CARINE), Resulted Pending 06/22/19 Gram Stain - Final, Resulted 06/22/19 Gram Stain Result 1 (CARINE) - Final, Resulted 06/22/19 Gram Stain Result 2 (CARINE) - Final, Resulted 06/20/19 Blood Culture - Final, Complete NO GROWTH AFTER 5 DAYS Review of Systems Constitutional: yes: unresponsive Physical Exam General Appearance: no apparent distress Skin: warm Respiratory: decreased breath sounds Heart: S1S2 Abdomen: distension, other (NO BS) Genitourinary: bladder flat Extremities: pulses present Neurology: other (sedated) Assessment Assessment IMP FABIOLA - IMPROVED WITH CR OF 1.4-OFF HD NOW LEUCOCYTOSIS GB STONE PANCREATITIS ACUTE RESP FAILURE MET ACIDOSIS S/P EXP LAP AND THEN PANCREATIC NECROSECTOMY WITH DRAINS HYPERNATREMIA-BETTER HYPERKALEMIA-BETTER MILD HYPERVOLEMIA PLAN CONT TPN-CHANGES PER PHARMACY CONT ANTIBIOTICS MONITOR RENAL FX HOPEFULLY NO FURTHER HD NEEDED IV LASIX TODAY D/W DR PEREIRA POOR PROGNOSIS [facility] WILL FOLLOW BERE QUIROZ MD Jun 26, 2019 12:00
[2019-06-26] MEDS ORDERED: FUROSEMIDE 100 MG/10 ML VIAL. IVP ONE (12:30)
--- NOTE | 2019-06-26 13:03 | PDOC ---
PULMONARY PROGRESS NOTES Subjective remains on [facility]. ventilation, intubated , s/p trach 06/21 no overnight concerns from nursing reg pulmonary status off NMB Vitals Vital Signs Date Time Temp Pulse Resp B/P (MAP) Pulse Ox O2 Delivery O2 Flow Rate FiO2 06/26/19 12:50 100.0 101 23 164/61 100.0 06/26/19 12:28 99 Ventilator Comments sedated Lungs: Clear Cardiovascular: S1, S2 Abdomen: Other (/distended/firm ) Extremities: No Edema Skin: Warm Labs Laboratory Tests Test 06/24/19 14:03 06/24/19 15:14 06/24/19 16:23 06/24/19 17:32 Glucose (Fingerstick) 132 mg/dL (70-99) 126 mg/dL (70-99) 128 mg/dL (70-99) 155 mg/dL (70-99) Test 06/24/19 18:44 06/24/19 19:56 06/24/19 21:02 06/24/19 22:05 Glucose (Fingerstick) 150 mg/dL (70-99) 142 mg/dL (70-99) 187 mg/dL (70-99) 186 mg/dL (70-99) Test 06/24/19 23:13 06/25/19 01:22 06/25/19 02:35 06/25/19 03:48 Glucose (Fingerstick) 197 mg/dL (70-99) 195 mg/dL (70-99) 151 mg/dL (70-99) 132 mg/dL (70-99) Test 06/25/19 06:00 06/25/19 06:01 06/25/19 08:30 06/25/19 08:32 White Blood Count 13.9 x10^3/uL (4.0-11.0) Red Blood Count 2.65 x10^6/uL (4.30-5.70) Hemoglobin 7.6 g/dL (13.0-17.5) Hematocrit 24.2 % (39.0-53.0) Mean Corpuscular Volume 91 fL (79-100) Mean Corpuscular Hemoglobin 29 pg (25-35) Mean Corpuscular Hemoglobin Concent 32 g/dL (31-37) Red Cell Distribution Width 14.7 % (11.5-14.5) Platelet Count 239 x10^3/uL (140-400) Neutrophils (%) (Auto) 84 % (31-73) Lymphocytes (%) (Auto) 7 % (24-48) Monocytes (%) (Auto) 8 % (0-9) Eosinophils (%) (Auto) 0 % (0-3) Basophils (%) (Auto) 1 % (0-3) Neutrophils # (Auto) 11.7 x10^3/uL (1.8-7.7) Lymphocytes # (Auto) 0.9 x10^3/uL (1.0-4.8) Monocytes # (Auto) 1.2 x10^3/uL (0.0-1.1) Eosinophils # (Auto) 0.0 x10^3/uL (0.0-0.7) Basophils # (Auto) 0.1 x10^3/uL (0.0-0.2) Sodium Level 148 mmol/L (136-145) Potassium Level 5.4 mmol/L (3.5-5.1) Chloride Level 114 mmol/L (98-107) Carbon Dioxide Level 33 mmol/L (21-32) Anion Gap 1 (6-14) Blood Urea Nitrogen 65 mg/dL (8-26) Creatinine 1.5 mg/dL (0.7-1.3) Estimated GFR (Cockcroft-Gault) 60.2 Glucose Level 132 mg/dL (70-99) Calcium Level 7.7 mg/dL (8.5-10.1) Phosphorus Level 3.3 mg/dL (2.6-4.7) Magnesium Level 2.2 mg/dL (1.8-2.4) Glucose (Fingerstick) 125 mg/dL (70-99) 154 mg/dL (70-99) O2 Saturation 97 % (92-99) Arterial Blood pH 7.32 (7.35-7.45) Arterial Blood pCO2 at Patient Temp 55 mmHg (35-46) Arterial Blood pO2 at Patient Temp 101 mmHg (75-108) Arterial Blood HCO3 28 mmol/L (21-28) Arterial Blood Base Excess 1 mmol/L (-3-3) FiO2 40 Test 06/25/19 09:37 06/25/19 10:45 06/25/19 11:36 06/25/19 12:41 Glucose (Fingerstick) 175 mg/dL (70-99) 179 mg/dL (70-99) 190 mg/dL (70-99) 184 mg/dL (70-99) Test 06/25/19 13:45 06/25/19 14:51 06/25/19 15:42 06/25/19 16:58 Glucose (Fingerstick) 136 mg/dL (70-99) 114 mg/dL (70-99) 115 mg/dL (70-99) 115 mg/dL (70-99) Test 06/25/19 18:00 06/25/19 19:14 06/25/19 20:08 06/25/19 21:08 Glucose (Fingerstick) 107 mg/dL (70-99) 108 mg/dL (70-99) 110 mg/dL (70-99) 118 mg/dL (70-99) Test 06/25/19 22:23 06/25/19 23:06 06/26/19 00:11 06/26/19 01:16 Glucose (Fingerstick) 166 mg/dL (70-99) 140 mg/dL (70-99) 132 mg/dL (70-99) 129 mg/dL (70-99) Test 06/26/19 02:23 06/26/19 03:14 06/26/19 04:03 06/26/19 05:00 Glucose (Fingerstick) 118 mg/dL (70-99) 117 mg/dL (70-99) 134 mg/dL (70-99) White Blood Count 11.5 x10^3/uL (4.0-11.0) Red Blood Count 2.42 x10^6/uL (4.30-5.70) Hemoglobin 7.0 g/dL (13.0-17.5) Hematocrit 21.6 % (39.0-53.0) Mean Corpuscular Volume 89 fL (79-100) Mean Corpuscular Hemoglobin 29 pg (25-35) Mean Corpuscular Hemoglobin Concent 33 g/dL (31-37) Red Cell Distribution Width 13.9 % (11.5-14.5) Platelet Count 234 x10^3/uL (140-400) Neutrophils (%) (Auto) 79 % (31-73) Lymphocytes (%) (Auto) 10 % (24-48) Monocytes (%) (Auto) 10 % (0-9) Eosinophils (%) (Auto) 0 % (0-3) Basophils (%) (Auto) 0 % (0-3) Neutrophils # (Auto) 9.1 x10^3/uL (1.8-7.7) Lymphocytes # (Auto) 1.1 x10^3/uL (1.0-4.8) Monocytes # (Auto) 1.2 x10^3/uL (0.0-1.1) Eosinophils # (Auto) 0.0 x10^3/uL (0.0-0.7) Basophils # (Auto) 0.0 x10^3/uL (0.0-0.2) Sodium Level 145 mmol/L (136-145) Potassium Level 4.4 mmol/L (3.5-5.1) Chloride Level 111 mmol/L (98-107) Carbon Dioxide Level 28 mmol/L (21-32) Anion Gap 6 (6-14) Blood Urea Nitrogen 62 mg/dL (8-26) Creatinine 1.4 mg/dL (0.7-1.3) Estimated GFR (Cockcroft-Gault) 65.2 Glucose Level 141 mg/dL (70-99) Calcium Level 7.5 mg/dL (8.5-10.1) Phosphorus Level 3.0 mg/dL (2.6-4.7) Magnesium Level 2.2 mg/dL (1.8-2.4) Test 06/26/19 05:06 06/26/19 06:11 06/26/19 07:17 06/26/19 07:35 Glucose (Fingerstick) 140 mg/dL (70-99) 134 mg/dL (70-99) 146 mg/dL (70-99) O2 Saturation 97 % (92-99) Arterial Blood pH 7.43 (7.35-7.45) Arterial Blood pCO2 at Patient Temp 40 mmHg (35-46) Arterial Blood pO2 at Patient Temp 105 mmHg (75-108) Arterial Blood HCO3 26 mmol/L (21-28) Arterial Blood Base Excess 2 mmol/L (-3-3) FiO2 40% Test 06/26/19 08:18 06/26/19 10:29 06/26/19 11:40 06/26/19 12:50 Glucose (Fingerstick) 139 mg/dL (70-99) 181 mg/dL (70-99) 168 mg/dL (70-99) 158 mg/dL (70-99) Laboratory Tests Test 06/25/19 13:45 06/25/19 14:51 06/25/19 15:42 06/25/19 16:58 Glucose (Fingerstick) 136 mg/dL (70-99) 114 mg/dL (70-99) 115 mg/dL (70-99) 115 mg/dL (70-99) Test 06/25/19 18:00 06/25/19 19:14 06/25/19 20:08 06/25/19 21:08 Glucose (Fingerstick) 107 mg/dL (70-99) 108 mg/dL (70-99) 110 mg/dL (70-99) 118 mg/dL (70-99) Test 06/25/19 22:23 06/25/19 23:06 06/26/19 00:11 06/26/19 01:16 Glucose (Fingerstick) 166 mg/dL (70-99) 140 mg/dL (70-99) 132 mg/dL (70-99) 129 mg/dL (70-99) Test 06/26/19 02:23 06/26/19 03:14 06/26/19 04:03 06/26/19 05:00 Glucose (Fingerstick) 118 mg/dL (70-99) 117 mg/dL (70-99) 134 mg/dL (70-99) White Blood Count 11.5 x10^3/uL (4.0-11.0) Red Blood Count 2.42 x10^6/uL (4.30-5.70) Hemoglobin 7.0 g/dL (13.0-17.5) Hematocrit 21.6 % (39.0-53.0) Mean Corpuscular Volume 89 fL (79-100) Mean Corpuscular Hemoglobin 29 pg (25-35) Mean Corpuscular Hemoglobin Concent 33 g/dL (31-37) Red Cell Distribution Width 13.9 % (11.5-14.5) Platelet Count 234 x10^3/uL (140-400) Neutrophils (%) (Auto) 79 % (31-73) Lymphocytes (%) (Auto) 10 % (24-48) Monocytes (%) (Auto) 10 % (0-9) Eosinophils (%) (Auto) 0 % (0-3) Basophils (%) (Auto) 0 % (0-3) Neutrophils # (Auto) 9.1 x10^3/uL (1.8-7.7) Lymphocytes # (Auto) 1.1 x10^3/uL (1.0-4.8) Monocytes # (Auto) 1.2 x10^3/uL (0.0-1.1) Eosinophils # (Auto) 0.0 x10^3/uL (0.0-0.7) Basophils # (Auto) 0.0 x10^3/uL (0.0-0.2) Sodium Level 145 mmol/L (136-145) Potassium Level 4.4 mmol/L (3.5-5.1) Chloride Level 111 mmol/L (98-107) Carbon Dioxide Level 28 mmol/L (21-32) Anion Gap 6 (6-14) Blood Urea Nitrogen 62 mg/dL (8-26) Creatinine 1.4 mg/dL (0.7-1.3) Estimated GFR (Cockcroft-Gault) 65.2 Glucose Level 141 mg/dL (70-99) Calcium Level 7.5 mg/dL (8.5-10.1) Phosphorus Level 3.0 mg/dL (2.6-4.7) Magnesium Level 2.2 mg/dL (1.8-2.4) Test 06/26/19 05:06 06/26/19 06:11 06/26/19 07:17 06/26/19 07:35 Glucose (Fingerstick) 140 mg/dL (70-99) 134 mg/dL (70-99) 146 mg/dL (70-99) O2 Saturation 97 % (92-99) Arterial Blood pH 7.43 (7.35-7.45) Arterial Blood pCO2 at Patient Temp 40 mmHg (35-46) Arterial Blood pO2 at Patient Temp 105 mmHg (75-108) Arterial Blood HCO3 26 mmol/L (21-28) Arterial Blood Base Excess 2 mmol/L (-3-3) FiO2 40% Test 06/26/19 08:18 06/26/19 10:29 06/26/19 11:40 06/26/19 12:50 Glucose (Fingerstick) 139 mg/dL (70-99) 181 mg/dL (70-99) 168 mg/dL (70-99) 158 mg/dL (70-99) Medications Active Scripts Medications Dose Route/Sig Max Daily Dose Days Date Category Comments 06/24 CXR reviewed no change / poor insp effort ct abdomen 06/21 report reviewed Impression . IMPRESSION: 1. Acute hypoxemic respiratory failure, multifactorial. 2. Acute gallstone pancreatitis./ Necrosis. s/p Exploratory laparotomy, pancreatic necrosectomy, cholecystostomy tube placement, Gastrostomy placement with jejunal extension, tracheostomy placement (specifically 8 shiley cuffed) 06/21 3. Acute kidney failure. improving 4. Metabolic toxic encephalopathy. 5. Hyperkalemia.corrected 6. Metabolic / respiratory acidosis 7. Hypocalcemia. 8. POSSIBLE ABD COMPARTMENT SYNDROME , s/p Exp lap 9. HEP B S POSITIVE 10. Hypernatremia 11. LLL small effusion, monitor Plan . AC mode PRN suctioning, NEBS Pain control: fent gtt/ wean off verded Follow CXR/ABG ABX per ID ct abdomen report reviewed 06/21. Follow surgery recs assess for CPAP trial later TPN per surgery D/W RN/RT TAYA PEREIRA MD Jun 26, 2019 13:03
--- NOTE | 2019-06-26 14:06 | PDOC ---
SURGICAL PROGRESS NOTE Subjective vent, sedated d/w nurse--stones passed through c tube overnight Vital Signs Vital Signs Date Time Temp Pulse Resp B/P (MAP) Pulse Ox O2 Delivery O2 Flow Rate FiO2 06/26/19 13:20 100.0 102 22 168/64 100.0 06/26/19 13:00 100 Ventilator I&O Intake and Output 06/26/19 07:00 Intake Total 5094.97 ml Output Total 4910 ml Balance 184.97 ml IV Total 5094.97 ml Output Urine Total 3360 ml Gastric Drainage Total 75 ml Drainage Total 1475 ml PATIENT HAS A LEPE: Yes General: Other (sedated ) Abdomen: Soft, Other (drains in place) Labs Laboratory Tests Test 06/24/19 15:14 06/24/19 16:23 06/24/19 17:32 06/24/19 18:44 Glucose (Fingerstick) 126 mg/dL (70-99) 128 mg/dL (70-99) 155 mg/dL (70-99) 150 mg/dL (70-99) Test 06/24/19 19:56 06/24/19 21:02 06/24/19 22:05 06/24/19 23:13 Glucose (Fingerstick) 142 mg/dL (70-99) 187 mg/dL (70-99) 186 mg/dL (70-99) 197 mg/dL (70-99) Test 06/25/19 01:22 06/25/19 02:35 06/25/19 03:48 06/25/19 06:00 Glucose (Fingerstick) 195 mg/dL (70-99) 151 mg/dL (70-99) 132 mg/dL (70-99) White Blood Count 13.9 x10^3/uL (4.0-11.0) Red Blood Count 2.65 x10^6/uL (4.30-5.70) Hemoglobin 7.6 g/dL (13.0-17.5) Hematocrit 24.2 % (39.0-53.0) Mean Corpuscular Volume 91 fL (79-100) Mean Corpuscular Hemoglobin 29 pg (25-35) Mean Corpuscular Hemoglobin Concent 32 g/dL (31-37) Red Cell Distribution Width 14.7 % (11.5-14.5) Platelet Count 239 x10^3/uL (140-400) Neutrophils (%) (Auto) 84 % (31-73) Lymphocytes (%) (Auto) 7 % (24-48) Monocytes (%) (Auto) 8 % (0-9) Eosinophils (%) (Auto) 0 % (0-3) Basophils (%) (Auto) 1 % (0-3) Neutrophils # (Auto) 11.7 x10^3/uL (1.8-7.7) Lymphocytes # (Auto) 0.9 x10^3/uL (1.0-4.8) Monocytes # (Auto) 1.2 x10^3/uL (0.0-1.1) Eosinophils # (Auto) 0.0 x10^3/uL (0.0-0.7) Basophils # (Auto) 0.1 x10^3/uL (0.0-0.2) Sodium Level 148 mmol/L (136-145) Potassium Level 5.4 mmol/L (3.5-5.1) Chloride Level 114 mmol/L (98-107) Carbon Dioxide Level 33 mmol/L (21-32) Anion Gap 1 (6-14) Blood Urea Nitrogen 65 mg/dL (8-26) Creatinine 1.5 mg/dL (0.7-1.3) Estimated GFR (Cockcroft-Gault) 60.2 Glucose Level 132 mg/dL (70-99) Calcium Level 7.7 mg/dL (8.5-10.1) Phosphorus Level 3.3 mg/dL (2.6-4.7) Magnesium Level 2.2 mg/dL (1.8-2.4) Test 06/25/19 06:01 06/25/19 08:30 06/25/19 08:32 06/25/19 09:37 Glucose (Fingerstick) 125 mg/dL (70-99) 154 mg/dL (70-99) 175 mg/dL (70-99) O2 Saturation 97 % (92-99) Arterial Blood pH 7.32 (7.35-7.45) Arterial Blood pCO2 at Patient Temp 55 mmHg (35-46) Arterial Blood pO2 at Patient Temp 101 mmHg (75-108) Arterial Blood HCO3 28 mmol/L (21-28) Arterial Blood Base Excess 1 mmol/L (-3-3) FiO2 40 Test 06/25/19 10:45 06/25/19 11:36 06/25/19 12:41 06/25/19 13:45 Glucose (Fingerstick) 179 mg/dL (70-99) 190 mg/dL (70-99) 184 mg/dL (70-99) 136 mg/dL (70-99) Test 06/25/19 14:51 06/25/19 15:42 06/25/19 16:58 06/25/19 18:00 Glucose (Fingerstick) 114 mg/dL (70-99) 115 mg/dL (70-99) 115 mg/dL (70-99) 107 mg/dL (70-99) Test 06/25/19 19:14 06/25/19 20:08 06/25/19 21:08 06/25/19 22:23 Glucose (Fingerstick) 108 mg/dL (70-99) 110 mg/dL (70-99) 118 mg/dL (70-99) 166 mg/dL (70-99) Test 06/25/19 23:06 06/26/19 00:11 06/26/19 01:16 06/26/19 02:23 Glucose (Fingerstick) 140 mg/dL (70-99) 132 mg/dL (70-99) 129 mg/dL (70-99) 118 mg/dL (70-99) Test 06/26/19 03:14 06/26/19 04:03 06/26/19 05:00 06/26/19 05:06 Glucose (Fingerstick) 117 mg/dL (70-99) 134 mg/dL (70-99) 140 mg/dL (70-99) White Blood Count 11.5 x10^3/uL (4.0-11.0) Red Blood Count 2.42 x10^6/uL (4.30-5.70) Hemoglobin 7.0 g/dL (13.0-17.5) Hematocrit 21.6 % (39.0-53.0) Mean Corpuscular Volume 89 fL (79-100) Mean Corpuscular Hemoglobin 29 pg (25-35) Mean Corpuscular Hemoglobin Concent 33 g/dL (31-37) Red Cell Distribution Width 13.9 % (11.5-14.5) Platelet Count 234 x10^3/uL (140-400) Neutrophils (%) (Auto) 79 % (31-73) Lymphocytes (%) (Auto) 10 % (24-48) Monocytes (%) (Auto) 10 % (0-9) Eosinophils (%) (Auto) 0 % (0-3) Basophils (%) (Auto) 0 % (0-3) Neutrophils # (Auto) 9.1 x10^3/uL (1.8-7.7) Lymphocytes # (Auto) 1.1 x10^3/uL (1.0-4.8) Monocytes # (Auto) 1.2 x10^3/uL (0.0-1.1) Eosinophils # (Auto) 0.0 x10^3/uL (0.0-0.7) Basophils # (Auto) 0.0 x10^3/uL (0.0-0.2) Sodium Level 145 mmol/L (136-145) Potassium Level 4.4 mmol/L (3.5-5.1) Chloride Level 111 mmol/L (98-107) Carbon Dioxide Level 28 mmol/L (21-32) Anion Gap 6 (6-14) Blood Urea Nitrogen 62 mg/dL (8-26) Creatinine 1.4 mg/dL (0.7-1.3) Estimated GFR (Cockcroft-Gault) 65.2 Glucose Level 141 mg/dL (70-99) Calcium Level 7.5 mg/dL (8.5-10.1) Phosphorus Level 3.0 mg/dL (2.6-4.7) Magnesium Level 2.2 mg/dL (1.8-2.4) Test 06/26/19 06:11 06/26/19 07:17 06/26/19 07:35 06/26/19 08:18 Glucose (Fingerstick) 134 mg/dL (70-99) 146 mg/dL (70-99) 139 mg/dL (70-99) O2 Saturation 97 % (92-99) Arterial Blood pH 7.43 (7.35-7.45) Arterial Blood pCO2 at Patient Temp 40 mmHg (35-46) Arterial Blood pO2 at Patient Temp 105 mmHg (75-108) Arterial Blood HCO3 26 mmol/L (21-28) Arterial Blood Base Excess 2 mmol/L (-3-3) FiO2 40% Test 06/26/19 10:29 06/26/19 11:40 06/26/19 12:50 06/26/19 13:57 Glucose (Fingerstick) 181 mg/dL (70-99) 168 mg/dL (70-99) 158 mg/dL (70-99) 147 mg/dL (70-99) Laboratory Tests Test 06/25/19 14:51 06/25/19 15:42 06/25/19 16:58 06/25/19 18:00 Glucose (Fingerstick) 114 mg/dL (70-99) 115 mg/dL (70-99) 115 mg/dL (70-99) 107 mg/dL (70-99) Test 06/25/19 19:14 06/25/19 20:08 06/25/19 21:08 06/25/19 22:23 Glucose (Fingerstick) 108 mg/dL (70-99) 110 mg/dL (70-99) 118 mg/dL (70-99) 166 mg/dL (70-99) Test 06/25/19 23:06 06/26/19 00:11 06/26/19 01:16 06/26/19 02:23 Glucose (Fingerstick) 140 mg/dL (70-99) 132 mg/dL (70-99) 129 mg/dL (70-99) 118 mg/dL (70-99) Test 06/26/19 03:14 06/26/19 04:03 06/26/19 05:00 06/26/19 05:06 Glucose (Fingerstick) 117 mg/dL (70-99) 134 mg/dL (70-99) 140 mg/dL (70-99) White Blood Count 11.5 x10^3/uL (4.0-11.0) Red Blood Count 2.42 x10^6/uL (4.30-5.70) Hemoglobin 7.0 g/dL (13.0-17.5) Hematocrit 21.6 % (39.0-53.0) Mean Corpuscular Volume 89 fL (79-100) Mean Corpuscular Hemoglobin 29 pg (25-35) Mean Corpuscular Hemoglobin Concent 33 g/dL (31-37) Red Cell Distribution Width 13.9 % (11.5-14.5) Platelet Count 234 x10^3/uL (140-400) Neutrophils (%) (Auto) 79 % (31-73) Lymphocytes (%) (Auto) 10 % (24-48) Monocytes (%) (Auto) 10 % (0-9) Eosinophils (%) (Auto) 0 % (0-3) Basophils (%) (Auto) 0 % (0-3) Neutrophils # (Auto) 9.1 x10^3/uL (1.8-7.7) Lymphocytes # (Auto) 1.1 x10^3/uL (1.0-4.8) Monocytes # (Auto) 1.2 x10^3/uL (0.0-1.1) Eosinophils # (Auto) 0.0 x10^3/uL (0.0-0.7) Basophils # (Auto) 0.0 x10^3/uL (0.0-0.2) Sodium Level 145 mmol/L (136-145) Potassium Level 4.4 mmol/L (3.5-5.1) Chloride Level 111 mmol/L (98-107) Carbon Dioxide Level 28 mmol/L (21-32) Anion Gap 6 (6-14) Blood Urea Nitrogen 62 mg/dL (8-26) Creatinine 1.4 mg/dL (0.7-1.3) Estimated GFR (Cockcroft-Gault) 65.2 Glucose Level 141 mg/dL (70-99) Calcium Level 7.5 mg/dL (8.5-10.1) Phosphorus Level 3.0 mg/dL (2.6-4.7) Magnesium Level 2.2 mg/dL (1.8-2.4) Test 06/26/19 06:11 06/26/19 07:17 06/26/19 07:35 06/26/19 08:18 Glucose (Fingerstick) 134 mg/dL (70-99) 146 mg/dL (70-99) 139 mg/dL (70-99) O2 Saturation 97 % (92-99) Arterial Blood pH 7.43 (7.35-7.45) Arterial Blood pCO2 at Patient Temp 40 mmHg (35-46) Arterial Blood pO2 at Patient Temp 105 mmHg (75-108) Arterial Blood HCO3 26 mmol/L (21-28) Arterial Blood Base Excess 2 mmol/L (-3-3) FiO2 40% Test 06/26/19 10:29 06/26/19 11:40 06/26/19 12:50 06/26/19 13:57 Glucose (Fingerstick) 181 mg/dL (70-99) 168 mg/dL (70-99) 158 mg/dL (70-99) 147 mg/dL (70-99) Problem List Problems Medical Problems: (1) Acute pancreatitis Status: Acute (2) Nausea & vomiting Status: Acute Assessment/Plan supportive care MAXIMILIANO GREENBERG APRN Jun 26, 2019 14:06
[2019-06-26] MEDS: IV NORMAL SALINE 1000ML BAG 1,000 ML IV SCH (15:41)
[2019-06-26] MEDS: hydrALAZINE 20 MG/ML VIAL. IVP PRN (15:43)
[2019-06-26] MEDS ORDERED: IV NORMAL SALINE 500ML BAG 500 ML IV PRN (19:00)
[2019-06-26] MEDS ORDERED: ATROPINE 0.5 MG/5 ML DISP.SYRINGE. IV PRN (19:00)
[2019-06-26] MEDS ORDERED: SODIUM BICARB ADULT 8.4% 50 MEQ/50 ML DISP.SYRIN. IV ONE (19:30)
[2019-06-26] MEDS: DEXMEDETOMIDINE 400 MCG in IV NORMAL SALINE 100ML 96 ML IV PRN (20:14)
[2019-06-26] MEDS: INSULIN GLARGINE SYRINGE. SQ SCH (21:00)
[2019-06-26] MEDS ORDERED: [UNRECOGNIZED DRUG - OTHER] IV SCH ×8 (22:00)
[2019-06-26] MEDS ORDERED: DEXTROSE 70% IV SCH ×8 (22:00)
[2019-06-26] MEDS ORDERED: TOTAL PARENTERAL NUTRITION IV SCH ×8 (22:00)
[2019-06-26] MEDS ORDERED: AMINO ACID IV SCH ×8 (22:00)
[2019-06-27] VITALS (23 sets, daily range): BP systolic 93–182; BP diastolic 44–104
[2019-06-27] MEDS: MEROPENEM 500 MG in IV NORMAL SALINE 50ML 50 ML IV SCH ×4 (00:06→17:49)
[2019-06-27] MEDS: IV DEXTROSE 5% 1,000 ML IV SCH (01:32)
[2019-06-27] MEDS: DEXMEDETOMIDINE 400 MCG in IV NORMAL SALINE 100ML 96 ML IV PRN ×7 (03:37→21:12)
[2019-06-27] MEDS: INSULIN LISPRO 300 UNITS/3 ML VIAL. SQ SCH ×3 (04:00→20:00)
[2019-06-27] MEDS: INSULIN REGULAR VIAL 100 UNIT in IV NORMAL SALINE 100ML 100 ML IV PRN (04:43)
[2019-06-27] MEDS: ENOXAPARIN 40 MG/0.4 ML SYRINGE. SQ SCH (05:50)
[2019-06-27] MEDS: PANTOPRAZOLE IV PUSH 40 MG VIAL. IVP SCH ×2 (05:50→20:39)
[2019-06-27 06:14] LABS: BASO % 0 % (0-3); EOS % 0 % (0-3); HEMATOCRIT 27.4 % (39.0-53.0); HEMOGLOBIN 9.1 g/dL (13.0-17.5); LYMPH # 1.2 x10^3/uL (1.0-4.8); LYMPH % 9 % (24-48); MEAN CORPUSCULAR HEMOGLOBIN 29 pg (25-35); MEAN CORPUSCULAR HGB CONC 33 g/dL (31-37); MEAN CORPUSCULAR VOLUME 88 fL (79-100); MONO # 1.4 x10^3/uL (0.0-1.1); MONO % 11 % (0-9); NEUT # 10.5 x10^3/uL (1.8-7.7); NEUT % 80 % (31-73); PLATELET COUNT 240 x10^3/uL (140-400); RED BLOOD COUNT 3.11 x10^6/uL (4.30-5.70); RED CELL DISTRIBUTION WIDTH 14.7 % (11.5-14.5); WHITE BLOOD COUNT 13.1 x10^3/uL (4.0-11.0)
[2019-06-27 06:23] LABS: CALCIUM 7.9 mg/dL (8.5-10.1); CREATININE 1.3 mg/dL (0.7-1.3); MAGNESIUM 2.1 mg/dL (1.8-2.4); PHOSPHORUS 3.9 mg/dL (2.6-4.7)
--- NOTE | 2019-06-27 07:59 | RAD ---
EXAM: PORTABLE CHEST 1V INDICATION: Ventilated patient. TECHNIQUE: Single AP view COMPARISON: 06/26/2019 chest x-ray FINDINGS: Tracheostomy tube remains present in apparent satisfactory position. Enteric tube remains present as well, tip passing below the diaphragms. Jugular approach central venous catheter placement on the right with tips in the right atrium remain present. The heart size is normal. The great vessels appear unremarkable. There is no hilar or mediastinal mass. Lungs are hypoventilatory. Left basilar atelectatic changes remain present. Trace left pleural effusion suspected. No pneumothorax. There are no significant osseous abnormalities. IMPRESSION: Hypoventilatory chest showing residual basilar atelectatic changes. No significant interval change or acute superimposed process. Electronically signed by: Eda Sargent MD (06/27/2019 7:57 AM) [id number]
--- NOTE | 2019-06-27 08:25 | PDOC ---
Infectious Disease Note Subjective Subjective sedated on vent ROS ROS cont off and on low grade fever Vital Sign Vital Signs Vital Signs Date Time Temp Pulse Resp B/P (MAP) Pulse Ox O2 Delivery O2 Flow Rate FiO2 06/27/19 06:00 99.9 87 20 114/57 (76) 98 Ventilator 99.9 Physical Exam PHYSICAL EXAM GENERAL: Sedated, orally intubated on vent, HEENT: Pupils equal, small. OGT/ETT in place NECK: Supple no JVD LUNGS: Diminished aeration bases HEART: S1, S2, regular, no murmurs. ABDOMEN: Distended, fairly tight, bowel sounds hypoactive : [place] EXTREMITIES: Trace edema, no cyanosis. SCDs bilaterally SKIN: Warm, dry. 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 ASSORTER: Sedated RIJ & RIJ/HD catheter (06/19) Labs Lab Laboratory Tests Test 06/26/19 10:29 06/26/19 11:40 06/26/19 12:50 06/26/19 13:57 Glucose (Fingerstick) 181 mg/dL (70-99) 168 mg/dL (70-99) 158 mg/dL (70-99) 147 mg/dL (70-99) Test 06/26/19 15:01 06/26/19 16:14 06/26/19 17:30 06/26/19 19:32 Glucose (Fingerstick) 142 mg/dL (70-99) 140 mg/dL (70-99) 150 mg/dL (70-99) 142 mg/dL (70-99) Test 06/26/19 21:44 06/27/19 00:03 06/27/19 01:10 06/27/19 02:16 Glucose (Fingerstick) 145 mg/dL (70-99) 128 mg/dL (70-99) 122 mg/dL (70-99) 111 mg/dL (70-99) Test 06/27/19 03:27 06/27/19 04:38 06/27/19 05:40 06/27/19 05:47 Glucose (Fingerstick) 119 mg/dL (70-99) 131 mg/dL (70-99) 135 mg/dL (70-99) White Blood Count 13.1 x10^3/uL (4.0-11.0) Red Blood Count 3.11 x10^6/uL (4.30-5.70) Hemoglobin 9.1 g/dL (13.0-17.5) Hematocrit 27.4 % (39.0-53.0) Mean Corpuscular Volume 88 fL (79-100) Mean Corpuscular Hemoglobin 29 pg (25-35) Mean Corpuscular Hemoglobin Concent 33 g/dL (31-37) Red Cell Distribution Width 14.7 % (11.5-14.5) Platelet Count 240 x10^3/uL (140-400) Neutrophils (%) (Auto) 80 % (31-73) Lymphocytes (%) (Auto) 9 % (24-48) Monocytes (%) (Auto) 11 % (0-9) Eosinophils (%) (Auto) 0 % (0-3) Basophils (%) (Auto) 0 % (0-3) Neutrophils # (Auto) 10.5 x10^3/uL (1.8-7.7) Lymphocytes # (Auto) 1.2 x10^3/uL (1.0-4.8) Monocytes # (Auto) 1.4 x10^3/uL (0.0-1.1) Eosinophils # (Auto) 0.0 x10^3/uL (0.0-0.7) Basophils # (Auto) 0.0 x10^3/uL (0.0-0.2) Sodium Level 146 mmol/L (136-145) Potassium Level 4.0 mmol/L (3.5-5.1) Chloride Level 109 mmol/L (98-107) Carbon Dioxide Level 30 mmol/L (21-32) Anion Gap 7 (6-14) Blood Urea Nitrogen 60 mg/dL (8-26) Creatinine 1.3 mg/dL (0.7-1.3) Estimated GFR (Cockcroft-Gault) 71.0 Glucose Level 134 mg/dL (70-99) Calcium Level 7.9 mg/dL (8.5-10.1) Phosphorus Level 3.9 mg/dL (2.6-4.7) Magnesium Level 2.1 mg/dL (1.8-2.4) Test 06/27/19 06:50 06/27/19 07:56 Glucose (Fingerstick) 151 mg/dL (70-99) 130 mg/dL (70-99) Micro Microbiology 06/20/19 Blood Culture - Preliminary, Resulted NO GROWTH AFTER 2 DAYS Objective Assessment Fever - Leukocytosis Gallbladder stone pancreatitis - lipase 475 06/15.- better. CT 06/15 - Fluid collection along the inferior aspect of the stomach measures 9.6 x 4.0 cm. Loculated fluid collection along the anterior aspect of the pancreas measures 3.0 x 2.6 cm -per surgery Sepsis from GI - cult neg Acute Resp failure - intubated Lactic acidosis. Acute kidney injury previously requiring dialysis - now with improved UOP, HDC (06/13) still in place Metabolic acidosis. Hypocalcemia Exploratory laparotomy, pancreatic necrosectomy, cholecystostomy tube placement, Gastrostomy placement with jejunal extension, tracheostomy placement 06/21 Plan Plan of Care Continue merrem, micafungin (06/19) and Zyvox( ) BC neg to date Maintain aspiration precaution. will reculture D/w nursing Critically ill KRISTIAN GOODMAN MD Jun 27, 2019 08:25
[2019-06-27] MEDS: CHLORHEXIDINE 0.12% 15 ML MOUTHWASH. MM SCH ×2 (08:27→20:39)
[2019-06-27] MEDS: MICAFUNGIN 100 MG in IV DEXTROSE 5% 100ML 100 ML IV SCH (08:29)
[2019-06-27] MEDS: ALBUTEROL SULFATE 2.5 MG/3 ML NEBU. NEB SCH ×4 (08:32→20:04)
[2019-06-27 09:04] LABS: BASE EXCESS ABG 1 mmol/L (-3-3); HCO3 ABG 26 mmol/L (21-28); PCO2 ABG 46 mmHg (35-46); PO2 ABG 84 mmHg (75-108); SAT O2 ABG 95 % (92-99)
[2019-06-27 09:06] LABS: FIO2 ABG 40
[2019-06-27] MEDS: fentaNYL HIGH DOSE PCA 55 ML IV PRN (09:47)
--- NOTE | 2019-06-27 10:01 | PDOC ---
Objective: Objective: Stable GI-perry per nurse. Vital Signs: Vital Signs Date Time Temp Pulse Resp B/P (MAP) Pulse Ox O2 Delivery O2 Flow Rate FiO2 06/27/19 09:47 99 3.0 06/27/19 08:33 Ventilator 06/27/19 06:00 99.9 87 20 114/57 (76) 99.9 Labs: Laboratory Tests Test 06/26/19 10:29 06/26/19 11:40 06/26/19 12:50 06/26/19 13:57 Glucose (Fingerstick) 181 mg/dL 168 mg/dL 158 mg/dL 147 mg/dL Test 06/26/19 15:01 06/26/19 16:14 06/26/19 17:30 06/26/19 19:32 Glucose (Fingerstick) 142 mg/dL 140 mg/dL 150 mg/dL 142 mg/dL Test 06/26/19 21:44 06/27/19 00:03 06/27/19 01:10 06/27/19 02:16 Glucose (Fingerstick) 145 mg/dL 128 mg/dL 122 mg/dL 111 mg/dL Test 06/27/19 03:27 06/27/19 04:38 06/27/19 05:40 06/27/19 05:47 Glucose (Fingerstick) 119 mg/dL 131 mg/dL 135 mg/dL White Blood Count 13.1 x10^3/uL Red Blood Count 3.11 x10^6/uL Hemoglobin 9.1 g/dL Hematocrit 27.4 % Mean Corpuscular Volume 88 fL Mean Corpuscular Hemoglobin 29 pg Mean Corpuscular Hemoglobin Concent 33 g/dL Red Cell Distribution Width 14.7 % Platelet Count 240 x10^3/uL Neutrophils (%) (Auto) 80 % Lymphocytes (%) (Auto) 9 % Monocytes (%) (Auto) 11 % Eosinophils (%) (Auto) 0 % Basophils (%) (Auto) 0 % Neutrophils # (Auto) 10.5 x10^3/uL Lymphocytes # (Auto) 1.2 x10^3/uL Monocytes # (Auto) 1.4 x10^3/uL Eosinophils # (Auto) 0.0 x10^3/uL Basophils # (Auto) 0.0 x10^3/uL Sodium Level 146 mmol/L Potassium Level 4.0 mmol/L Chloride Level 109 mmol/L Carbon Dioxide Level 30 mmol/L Anion Gap 7 Blood Urea Nitrogen 60 mg/dL Creatinine 1.3 mg/dL Estimated GFR (Cockcroft-Gault) 71.0 Glucose Level 134 mg/dL Calcium Level 7.9 mg/dL Phosphorus Level 3.9 mg/dL Magnesium Level 2.1 mg/dL Test 06/27/19 06:50 06/27/19 07:56 06/27/19 08:55 Glucose (Fingerstick) 151 mg/dL 130 mg/dL 144 mg/dL O2 Saturation 95 % Arterial Blood pH 7.38 Arterial Blood pCO2 at Patient Temp 46 mmHg Arterial Blood pO2 at Patient Temp 84 mmHg Arterial Blood HCO3 26 mmol/L Arterial Blood Base Excess 1 mmol/L FiO2 40 ORDERED: AFB CULT, ANGELES CULT,OTHER COMMENTS: ABDOMINAL FLUID Procedure Result AFB SPECIMEN PROCESSING Final Concentration AFB CULTURE FINAL PENDING AFB CULTURE GRAM STAIN Final Negative Performed at: DA - [facility] [address], [place], [place] [id number] [employer]: WOODY Roberson MD, Phone: [phone] FUNGAL CULTURE,OTHER PENDING ANGELES CULT RES 1 PENDING BLOOD CULTURE Preliminary NO GROWTH AFTER 1 DAY Imaging: CXR 06/26 IMPRESSION: Hypoventilatory chest showing residual basilar atelectatic changes. No significant interval change or acute superimposed process. PE: GEN: intubated LUNGS: RT present, vent HEART: tacycardic on monitor ABD: distended NEURO/PSYCH: awake A/P: S/p pancreatic necrosectomy, resp failure, fever -- Continue support. Hemodynamically unstable?: No Is patient in severe pain?: Yes Is NPO status required?: Yes PAXTON ALEXANDER Jun 27, 2019 10:01
--- NOTE | 2019-06-27 10:34 | PDOC ---
Renal-Progress Notes Subjective Notes Notes NO CHANGES History of Present Illness Hx of present illness STABLE Vitals Vitals Vital Signs Date Time Temp Pulse Resp B/P (MAP) Pulse Ox O2 Delivery O2 Flow Rate FiO2 06/27/19 09:47 99 3.0 06/27/19 08:33 Ventilator 06/27/19 06:00 99.9 87 20 114/57 (76) 99.9 Weight Weight [ ] I.O. Intake and Output Intake and Output 06/27/19 07:00 Intake Total 6346.57 ml Output Total 5335 ml Balance 1011.57 ml IV Total 4366.57 ml Blood Product 660 ml Blood Product IV Normal Saline Flush 1320 ml Output Urine Total 3985 ml Gastric Drainage Total 200 ml Drainage Total 1150 ml Labs Labs Laboratory Tests Test 06/26/19 11:40 06/26/19 12:50 06/26/19 13:57 06/26/19 15:01 Glucose (Fingerstick) 168 mg/dL (70-99) 158 mg/dL (70-99) 147 mg/dL (70-99) 142 mg/dL (70-99) Test 06/26/19 16:14 06/26/19 17:30 06/26/19 19:32 06/26/19 21:44 Glucose (Fingerstick) 140 mg/dL (70-99) 150 mg/dL (70-99) 142 mg/dL (70-99) 145 mg/dL (70-99) Test 06/27/19 00:03 06/27/19 01:10 06/27/19 02:16 06/27/19 03:27 Glucose (Fingerstick) 128 mg/dL (70-99) 122 mg/dL (70-99) 111 mg/dL (70-99) 119 mg/dL (70-99) Test 06/27/19 04:38 06/27/19 05:40 06/27/19 05:47 06/27/19 06:50 Glucose (Fingerstick) 131 mg/dL (70-99) 135 mg/dL (70-99) 151 mg/dL (70-99) White Blood Count 13.1 x10^3/uL (4.0-11.0) Red Blood Count 3.11 x10^6/uL (4.30-5.70) Hemoglobin 9.1 g/dL (13.0-17.5) Hematocrit 27.4 % (39.0-53.0) Mean Corpuscular Volume 88 fL (79-100) Mean Corpuscular Hemoglobin 29 pg (25-35) Mean Corpuscular Hemoglobin Concent 33 g/dL (31-37) Red Cell Distribution Width 14.7 % (11.5-14.5) Platelet Count 240 x10^3/uL (140-400) Neutrophils (%) (Auto) 80 % (31-73) Lymphocytes (%) (Auto) 9 % (24-48) Monocytes (%) (Auto) 11 % (0-9) Eosinophils (%) (Auto) 0 % (0-3) Basophils (%) (Auto) 0 % (0-3) Neutrophils # (Auto) 10.5 x10^3/uL (1.8-7.7) Lymphocytes # (Auto) 1.2 x10^3/uL (1.0-4.8) Monocytes # (Auto) 1.4 x10^3/uL (0.0-1.1) Eosinophils # (Auto) 0.0 x10^3/uL (0.0-0.7) Basophils # (Auto) 0.0 x10^3/uL (0.0-0.2) Sodium Level 146 mmol/L (136-145) Potassium Level 4.0 mmol/L (3.5-5.1) Chloride Level 109 mmol/L (98-107) Carbon Dioxide Level 30 mmol/L (21-32) Anion Gap 7 (6-14) Blood Urea Nitrogen 60 mg/dL (8-26) Creatinine 1.3 mg/dL (0.7-1.3) Estimated GFR (Cockcroft-Gault) 71.0 Glucose Level 134 mg/dL (70-99) Calcium Level 7.9 mg/dL (8.5-10.1) Phosphorus Level 3.9 mg/dL (2.6-4.7) Magnesium Level 2.1 mg/dL (1.8-2.4) Test 06/27/19 07:56 06/27/19 08:55 Glucose (Fingerstick) 130 mg/dL (70-99) 144 mg/dL (70-99) O2 Saturation 95 % (92-99) Arterial Blood pH 7.38 (7.35-7.45) Arterial Blood pCO2 at Patient Temp 46 mmHg (35-46) Arterial Blood pO2 at Patient Temp 84 mmHg (75-108) Arterial Blood HCO3 26 mmol/L (21-28) Arterial Blood Base Excess 1 mmol/L (-3-3) FiO2 40 Micro Micro Microbiology 06/26/19 Blood Culture - Preliminary, Resulted NO GROWTH AFTER 1 DAY 06/23/19 - Final, Resulted 06/23/19 - Final, Resulted 06/23/19 - Final, Resulted 06/23/19 - Preliminary, Resulted 06/23/19 - Preliminary, Resulted 06/23/19 - Preliminary, Resulted 06/23/19 Gram Stain Evaluation - Final, Resulted 06/23/19 Sputum Culture - Preliminary, Resulted 06/23/19 Sputum Result 1 - Final, Resulted 06/22/19 AFB Specimen Processing Tissue - Final, Resulted 06/22/19 Acid Fast Bacilli Culture, Resulted Pending 06/22/19 Gram Stain - Final, Resulted 06/22/19 Fungal Culture, Resulted Pending 06/22/19 Fungal Culture Result 1, Resulted Pending Review of Systems Constitutional: yes: unresponsive Physical Exam General Appearance: no apparent distress Skin: warm Respiratory: decreased breath sounds Heart: S1S2 Abdomen: distension, other (NO BS) Genitourinary: bladder flat Extremities: pulses present Neurology: other (sedated) Assessment Assessment IMP FABIOLA - IMPROVED WITH CR OF 1.4-OFF HD NOW LEUCOCYTOSIS GB STONE PANCREATITIS ACUTE RESP FAILURE MET ACIDOSIS S/P EXP LAP AND THEN PANCREATIC NECROSECTOMY WITH DRAINS HYPERNATREMIA-BETTER HYPERKALEMIA-BETTER MILD HYPERVOLEMIA PLAN CONT TPN-CHANGES PER PHARMACY CONT ANTIBIOTICS MONITOR RENAL FX HOPEFULLY NO FURTHER HD NEEDED IV LASIX TODAY D/W DR PEREIRA POOR PROGNOSIS RN UTILIZATION MANAGEMENT UM WILL FOLLOW BERE QUIROZ MD Jun 27, 2019 10:34
--- NOTE | 2019-06-27 11:31 | PDOC ---
[employer] [facility] PROGRESS NOTE Chief Complaint Chief Complaint Acute hypoxemic respiratory failure, multifactorial. Status post tracheostomy 5 drains Acute gallstone pancreatitis./ Necrosis Acute kidney failure. improving Metabolic toxic encephalopathy. Hyperkalemia.corrected Metabolic / respiratory acidosis Hypocalcemia. Hepatitis B Hypernatremia LLL small effusion, monitor Exploratory laparotomy, pancreatic necrosectomy, cholecystostomy tube placement, Gastrostomy placement with jejunal extension, tracheostomy placement (specifically 8 shiley cuffed) Specimans Obtained: pancreatic necrosis, saponification, gallstones Findings: diffuse peritonitis, 1.5 liters of ascites, diffuse saponification, viable viscera, mulitiple gallstones, normal liver History of Present Illness History of Present Illness [id number] Patient seen and examined in the ICU He remains critically ill intubated Vent: ac/ 20 /500/ 40% Chart reviewed Discussed with RN [id number] Patient seen and examined in the ICU He remains intubated Dr. Mcbride is here with me Discussed with RN Discussed with patient's brother Chart reviewed Patient remains mechanically intubated and sedated Extremely critically ill [id number] Patient seen and examined in the ICU He remains intubated and now on multiple drips Vent settings as follows assist-control/18/500/40% Discussed with RN Discussed with Dr. Smyth Chart reviewed He is critically ill [id number] Patient seen and examined in the ICU He is on the ventilator and sedated and paralyzed Discussed with RN Discussed with his Chart reviewed Exploratory laparotomy, pancreatic necrosectomy, cholecystostomy tube placement, Gastrostomy placement with jejunal extension, tracheostomy placement (specifically 8 shiley cuffed) 06/24/2019 Pt seen and examined in the ICU. Discussed with RN, Chart reviewed. Pt was sedated and currently being tried on room air. Ventilator setting as follows: AC/18/500/40% with peep of 5, but not in use during observation. Currently has [address] Vitals/I&O Vitals/I&O: Vital Signs Date Time Temp Pulse Resp B/P (MAP) Pulse Ox O2 Delivery O2 Flow Rate FiO2 06/27/19 09:47 99 3.0 06/27/19 08:33 Ventilator 06/27/19 06:00 99.9 87 20 114/57 (76) 99.9 I & O 06/26/19 06/26/19 06/27/19 15:00 23:00 07:00 Intake Total 1860 ml 2868.57 ml 1618 ml Output Total 2500 ml 1465 ml 1370 ml Balance -640 ml 1403.57 ml 248 ml Physical Exam Physical Exam: GENERAL: Sedated, orally intubated on vent, HEENT: Pupils equal, small. OGT/ETT in place NECK: Supple no JVD LUNGS: Diminished aeration bases HEART: S1, S2, regular, no murmurs. ABDOMEN: Distended, fairly tight, bowel sounds hypoactive : [place] EXTREMITIES: Trace edema, no cyanosis. SCDs bilaterally SKIN: Warm, dry. 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: Sedated RIJ & RIJ/HD catheter (06/19) General: Other (sedated ) Heart: Other (ST, rate near 125-130) Lungs: Clear Abdomen: Soft, Other (drains in place) Extremities: No edema Skin: No significant lesion Labs Labs: Laboratory Tests Test 06/26/19 11:40 06/26/19 12:50 06/26/19 13:57 06/26/19 15:01 Glucose (Fingerstick) 168 mg/dL (70-99) 158 mg/dL (70-99) 147 mg/dL (70-99) 142 mg/dL (70-99) Test 06/26/19 16:14 06/26/19 17:30 06/26/19 19:32 06/26/19 21:44 Glucose (Fingerstick) 140 mg/dL (70-99) 150 mg/dL (70-99) 142 mg/dL (70-99) 145 mg/dL (70-99) Test 06/27/19 00:03 06/27/19 01:10 06/27/19 02:16 06/27/19 03:27 Glucose (Fingerstick) 128 mg/dL (70-99) 122 mg/dL (70-99) 111 mg/dL (70-99) 119 mg/dL (70-99) Test 06/27/19 04:38 06/27/19 05:40 06/27/19 05:47 06/27/19 06:50 Glucose (Fingerstick) 131 mg/dL (70-99) 135 mg/dL (70-99) 151 mg/dL (70-99) White Blood Count 13.1 x10^3/uL (4.0-11.0) Red Blood Count 3.11 x10^6/uL (4.30-5.70) Hemoglobin 9.1 g/dL (13.0-17.5) Hematocrit 27.4 % (39.0-53.0) Mean Corpuscular Volume 88 fL (79-100) Mean Corpuscular Hemoglobin 29 pg (25-35) Mean Corpuscular Hemoglobin Concent 33 g/dL (31-37) Red Cell Distribution Width 14.7 % (11.5-14.5) Platelet Count 240 x10^3/uL (140-400) Neutrophils (%) (Auto) 80 % (31-73) Lymphocytes (%) (Auto) 9 % (24-48) Monocytes (%) (Auto) 11 % (0-9) Eosinophils (%) (Auto) 0 % (0-3) Basophils (%) (Auto) 0 % (0-3) Neutrophils # (Auto) 10.5 x10^3/uL (1.8-7.7) Lymphocytes # (Auto) 1.2 x10^3/uL (1.0-4.8) Monocytes # (Auto) 1.4 x10^3/uL (0.0-1.1) Eosinophils # (Auto) 0.0 x10^3/uL (0.0-0.7) Basophils # (Auto) 0.0 x10^3/uL (0.0-0.2) Sodium Level 146 mmol/L (136-145) Potassium Level 4.0 mmol/L (3.5-5.1) Chloride Level 109 mmol/L (98-107) Carbon Dioxide Level 30 mmol/L (21-32) Anion Gap 7 (6-14) Blood Urea Nitrogen 60 mg/dL (8-26) Creatinine 1.3 mg/dL (0.7-1.3) Estimated GFR (Cockcroft-Gault) 71.0 Glucose Level 134 mg/dL (70-99) Calcium Level 7.9 mg/dL (8.5-10.1) Phosphorus Level 3.9 mg/dL (2.6-4.7) Magnesium Level 2.1 mg/dL (1.8-2.4) Test 06/27/19 07:56 06/27/19 08:55 06/27/19 11:13 Glucose (Fingerstick) 130 mg/dL (70-99) 144 mg/dL (70-99) 158 mg/dL (70-99) O2 Saturation 95 % (92-99) Arterial Blood pH 7.38 (7.35-7.45) Arterial Blood pCO2 at Patient Temp 46 mmHg (35-46) Arterial Blood pO2 at Patient Temp 84 mmHg (75-108) Arterial Blood HCO3 26 mmol/L (21-28) Arterial Blood Base Excess 1 mmol/L (-3-3) FiO2 40 Review of Systems Review of Systems: Unable to obtain Assessment and Plan Assessmemt and Plan Problems Medical Problems: (1) Acute pancreatitis Status: Acute (2) Nausea & vomiting Status: Acute Acute hypoxemic respiratory failure, multifactorial. Status post tracheostomy 5 drains Acute gallstone pancreatitis./ Necrosis Acute kidney failure. improving Metabolic toxic encephalopathy. Hyperkalemia.corrected Metabolic / respiratory acidosis Hypocalcemia. Hepatitis B Hypernatremia LLL small effusion, monitor Exploratory laparotomy, pancreatic necrosectomy, cholecystostomy tube placement, Gastrostomy placement with jejunal extension, tracheostomy placement (specifically 8 shiley cuffed) Plan: Continue ICU monitoring Continue to monitor intraabdominal pressures DVT prophylaxis appreciate GI consult Vent weaning IV antibiotics IV paralytics and IV sedatives Trend labs Wound care We are managing 5 drains He remains critically ill Prognosis extremely guarded at best Total time 31 minutes Comment Review of Relevant I have reviewed the following items alexandra (where applicable) has been applied. Medications: Current Medications Medications (Trade) Dose Ordered Sig/Jesse Route PRN Reason Start Time Stop Time Status Last Admin Dose Admin Sodium Phosphate 10 mmol/Magnesium Sulfate 5 meq/ Calcium Gluconate 15 meq/ Multivitamins 10 ml/Chromium/ Copper/Manganese/ Seleni/Zn 0.5 ml/ Total Parenteral Nutrition/Amino Acids/Dextrose/ Fat Emulsion Intravenous 1,920 ml @ 80 mls/hr TPN CONT IV 06/26/19 22:00 06/27/19 21:59 06/26/19 21:57 Furosemide (Lasix) 60 mg 1X ONCE IVP 06/26/19 12:30 06/26/19 12:31 DC 06/26/19 12:22 Dexmedetomidine HCl 400 mcg/ Sodium Chloride 100 ml @ 0 mls/hr CONT PRN IV ANXIETY / AGITATION 06/26/19 19:00 06/27/19 09:33 Hemodynamically unstable?: No Is patient in severe pain?: Yes Is NPO status required?: Yes JUSTIN WORKMAN III DO Jun 27, 2019 11:31
--- NOTE | 2019-06-27 11:47 | PDOC ---
PULMONARY PROGRESS NOTES Subjective remains on [facility]. ventilation, intubated , s/p trach 06/21 no overnight concerns from nursing reg pulmonary status off NMB Vitals Vital Signs Date Time Temp Pulse Resp B/P (MAP) Pulse Ox O2 Delivery O2 Flow Rate FiO2 06/27/19 09:47 99 3.0 06/27/19 08:33 Ventilator 06/27/19 06:00 99.9 87 20 114/57 (76) 99.9 Comments sedated Lungs: Clear Cardiovascular: S1, S2 Abdomen: Other (/distended/firm ) Extremities: No Edema Skin: Warm Labs Laboratory Tests Test 06/25/19 12:41 06/25/19 13:45 06/25/19 14:51 06/25/19 15:42 Glucose (Fingerstick) 184 mg/dL (70-99) 136 mg/dL (70-99) 114 mg/dL (70-99) 115 mg/dL (70-99) Test 06/25/19 16:58 06/25/19 18:00 06/25/19 19:14 06/25/19 20:08 Glucose (Fingerstick) 115 mg/dL (70-99) 107 mg/dL (70-99) 108 mg/dL (70-99) 110 mg/dL (70-99) Test 06/25/19 21:08 06/25/19 22:23 06/25/19 23:06 06/26/19 00:11 Glucose (Fingerstick) 118 mg/dL (70-99) 166 mg/dL (70-99) 140 mg/dL (70-99) 132 mg/dL (70-99) Test 06/26/19 01:16 06/26/19 02:23 06/26/19 03:14 06/26/19 04:03 Glucose (Fingerstick) 129 mg/dL (70-99) 118 mg/dL (70-99) 117 mg/dL (70-99) 134 mg/dL (70-99) Test 06/26/19 05:00 06/26/19 05:06 06/26/19 06:11 06/26/19 07:17 White Blood Count 11.5 x10^3/uL (4.0-11.0) Red Blood Count 2.42 x10^6/uL (4.30-5.70) Hemoglobin 7.0 g/dL (13.0-17.5) Hematocrit 21.6 % (39.0-53.0) Mean Corpuscular Volume 89 fL (79-100) Mean Corpuscular Hemoglobin 29 pg (25-35) Mean Corpuscular Hemoglobin Concent 33 g/dL (31-37) Red Cell Distribution Width 13.9 % (11.5-14.5) Platelet Count 234 x10^3/uL (140-400) Neutrophils (%) (Auto) 79 % (31-73) Lymphocytes (%) (Auto) 10 % (24-48) Monocytes (%) (Auto) 10 % (0-9) Eosinophils (%) (Auto) 0 % (0-3) Basophils (%) (Auto) 0 % (0-3) Neutrophils # (Auto) 9.1 x10^3/uL (1.8-7.7) Lymphocytes # (Auto) 1.1 x10^3/uL (1.0-4.8) Monocytes # (Auto) 1.2 x10^3/uL (0.0-1.1) Eosinophils # (Auto) 0.0 x10^3/uL (0.0-0.7) Basophils # (Auto) 0.0 x10^3/uL (0.0-0.2) Sodium Level 145 mmol/L (136-145) Potassium Level 4.4 mmol/L (3.5-5.1) Chloride Level 111 mmol/L (98-107) Carbon Dioxide Level 28 mmol/L (21-32) Anion Gap 6 (6-14) Blood Urea Nitrogen 62 mg/dL (8-26) Creatinine 1.4 mg/dL (0.7-1.3) Estimated GFR (Cockcroft-Gault) 65.2 Glucose Level 141 mg/dL (70-99) Calcium Level 7.5 mg/dL (8.5-10.1) Phosphorus Level 3.0 mg/dL (2.6-4.7) Magnesium Level 2.2 mg/dL (1.8-2.4) Glucose (Fingerstick) 140 mg/dL (70-99) 134 mg/dL (70-99) 146 mg/dL (70-99) Test 06/26/19 07:35 06/26/19 08:18 06/26/19 10:29 06/26/19 11:40 O2 Saturation 97 % (92-99) Arterial Blood pH 7.43 (7.35-7.45) Arterial Blood pCO2 at Patient Temp 40 mmHg (35-46) Arterial Blood pO2 at Patient Temp 105 mmHg (75-108) Arterial Blood HCO3 26 mmol/L (21-28) Arterial Blood Base Excess 2 mmol/L (-3-3) FiO2 40% Glucose (Fingerstick) 139 mg/dL (70-99) 181 mg/dL (70-99) 168 mg/dL (70-99) Test 06/26/19 12:50 06/26/19 13:57 06/26/19 15:01 06/26/19 16:14 Glucose (Fingerstick) 158 mg/dL (70-99) 147 mg/dL (70-99) 142 mg/dL (70-99) 140 mg/dL (70-99) Test 06/26/19 17:30 06/26/19 19:32 06/26/19 21:44 06/27/19 00:03 Glucose (Fingerstick) 150 mg/dL (70-99) 142 mg/dL (70-99) 145 mg/dL (70-99) 128 mg/dL (70-99) Test 06/27/19 01:10 06/27/19 02:16 06/27/19 03:27 06/27/19 04:38 Glucose (Fingerstick) 122 mg/dL (70-99) 111 mg/dL (70-99) 119 mg/dL (70-99) 131 mg/dL (70-99) Test 06/27/19 05:40 06/27/19 05:47 06/27/19 06:50 06/27/19 07:56 White Blood Count 13.1 x10^3/uL (4.0-11.0) Red Blood Count 3.11 x10^6/uL (4.30-5.70) Hemoglobin 9.1 g/dL (13.0-17.5) Hematocrit 27.4 % (39.0-53.0) Mean Corpuscular Volume 88 fL (79-100) Mean Corpuscular Hemoglobin 29 pg (25-35) Mean Corpuscular Hemoglobin Concent 33 g/dL (31-37) Red Cell Distribution Width 14.7 % (11.5-14.5) Platelet Count 240 x10^3/uL (140-400) Neutrophils (%) (Auto) 80 % (31-73) Lymphocytes (%) (Auto) 9 % (24-48) Monocytes (%) (Auto) 11 % (0-9) Eosinophils (%) (Auto) 0 % (0-3) Basophils (%) (Auto) 0 % (0-3) Neutrophils # (Auto) 10.5 x10^3/uL (1.8-7.7) Lymphocytes # (Auto) 1.2 x10^3/uL (1.0-4.8) Monocytes # (Auto) 1.4 x10^3/uL (0.0-1.1) Eosinophils # (Auto) 0.0 x10^3/uL (0.0-0.7) Basophils # (Auto) 0.0 x10^3/uL (0.0-0.2) Sodium Level 146 mmol/L (136-145) Potassium Level 4.0 mmol/L (3.5-5.1) Chloride Level 109 mmol/L (98-107) Carbon Dioxide Level 30 mmol/L (21-32) Anion Gap 7 (6-14) Blood Urea Nitrogen 60 mg/dL (8-26) Creatinine 1.3 mg/dL (0.7-1.3) Estimated GFR (Cockcroft-Gault) 71.0 Glucose Level 134 mg/dL (70-99) Calcium Level 7.9 mg/dL (8.5-10.1) Phosphorus Level 3.9 mg/dL (2.6-4.7) Magnesium Level 2.1 mg/dL (1.8-2.4) Glucose (Fingerstick) 135 mg/dL (70-99) 151 mg/dL (70-99) 130 mg/dL (70-99) Test 06/27/19 08:55 06/27/19 11:13 O2 Saturation 95 % (92-99) Arterial Blood pH 7.38 (7.35-7.45) Arterial Blood pCO2 at Patient Temp 46 mmHg (35-46) Arterial Blood pO2 at Patient Temp 84 mmHg (75-108) Arterial Blood HCO3 26 mmol/L (21-28) Arterial Blood Base Excess 1 mmol/L (-3-3) FiO2 40 Glucose (Fingerstick) 144 mg/dL (70-99) 158 mg/dL (70-99) Laboratory Tests Test 06/26/19 12:50 06/26/19 13:57 06/26/19 15:01 06/26/19 16:14 Glucose (Fingerstick) 158 mg/dL (70-99) 147 mg/dL (70-99) 142 mg/dL (70-99) 140 mg/dL (70-99) Test 06/26/19 17:30 06/26/19 19:32 06/26/19 21:44 06/27/19 00:03 Glucose (Fingerstick) 150 mg/dL (70-99) 142 mg/dL (70-99) 145 mg/dL (70-99) 128 mg/dL (70-99) Test 06/27/19 01:10 06/27/19 02:16 06/27/19 03:27 06/27/19 04:38 Glucose (Fingerstick) 122 mg/dL (70-99) 111 mg/dL (70-99) 119 mg/dL (70-99) 131 mg/dL (70-99) Test 06/27/19 05:40 06/27/19 05:47 06/27/19 06:50 06/27/19 07:56 White Blood Count 13.1 x10^3/uL (4.0-11.0) Red Blood Count 3.11 x10^6/uL (4.30-5.70) Hemoglobin 9.1 g/dL (13.0-17.5) Hematocrit 27.4 % (39.0-53.0) Mean Corpuscular Volume 88 fL (79-100) Mean Corpuscular Hemoglobin 29 pg (25-35) Mean Corpuscular Hemoglobin Concent 33 g/dL (31-37) Red Cell Distribution Width 14.7 % (11.5-14.5) Platelet Count 240 x10^3/uL (140-400) Neutrophils (%) (Auto) 80 % (31-73) Lymphocytes (%) (Auto) 9 % (24-48) Monocytes (%) (Auto) 11 % (0-9) Eosinophils (%) (Auto) 0 % (0-3) Basophils (%) (Auto) 0 % (0-3) Neutrophils # (Auto) 10.5 x10^3/uL (1.8-7.7) Lymphocytes # (Auto) 1.2 x10^3/uL (1.0-4.8) Monocytes # (Auto) 1.4 x10^3/uL (0.0-1.1) Eosinophils # (Auto) 0.0 x10^3/uL (0.0-0.7) Basophils # (Auto) 0.0 x10^3/uL (0.0-0.2) Sodium Level 146 mmol/L (136-145) Potassium Level 4.0 mmol/L (3.5-5.1) Chloride Level 109 mmol/L (98-107) Carbon Dioxide Level 30 mmol/L (21-32) Anion Gap 7 (6-14) Blood Urea Nitrogen 60 mg/dL (8-26) Creatinine 1.3 mg/dL (0.7-1.3) Estimated GFR (Cockcroft-Gault) 71.0 Glucose Level 134 mg/dL (70-99) Calcium Level 7.9 mg/dL (8.5-10.1) Phosphorus Level 3.9 mg/dL (2.6-4.7) Magnesium Level 2.1 mg/dL (1.8-2.4) Glucose (Fingerstick) 135 mg/dL (70-99) 151 mg/dL (70-99) 130 mg/dL (70-99) Test 06/27/19 08:55 06/27/19 11:13 O2 Saturation 95 % (92-99) Arterial Blood pH 7.38 (7.35-7.45) Arterial Blood pCO2 at Patient Temp 46 mmHg (35-46) Arterial Blood pO2 at Patient Temp 84 mmHg (75-108) Arterial Blood HCO3 26 mmol/L (21-28) Arterial Blood Base Excess 1 mmol/L (-3-3) FiO2 40 Glucose (Fingerstick) 144 mg/dL (70-99) 158 mg/dL (70-99) Medications Active Scripts Medications Dose Route/Sig Max Daily Dose Days Date Category Comments 06/26 CXR reviewed no change / poor insp effort ct abdomen 06/21 report reviewed Impression . IMPRESSION: 1. Acute hypoxemic respiratory failure, multifactorial. 2. Acute gallstone pancreatitis./ Necrosis. s/p Exploratory laparotomy, pancreatic necrosectomy, cholecystostomy tube placement, Gastrostomy placement with jejunal extension, tracheostomy placement (specifically 8 shiley cuffed) 06/21 3. Acute kidney failure. improving 4. Metabolic toxic encephalopathy. 5. Hyperkalemia.corrected 6. Metabolic / respiratory acidosis 7. Hypocalcemia. 8. POSSIBLE ABD COMPARTMENT SYNDROME , s/p Exp lap 9. HEP B S POSITIVE 10. Hypernatremia 11. LLL small effusion, monitor Plan . AC mode PRN suctioning, NEBS Pain control: fent gtt/ off versed, still sleepy Follow CXR/ABG ABX per ID ct abdomen report reviewed 06/21. Follow surgery recs assess for CPAP trial later once more awake TPN per surgery D/W RN/RT TAYA PEREIRA MD Jun 27, 2019 11:47
[2019-06-27] MEDS ORDERED: PROPOFOL 100 ML IV ONE (11:51)
[2019-06-27] MEDS: PROPOFOL 100 ML IV PRN ×2 (12:38→16:57)
[2019-06-27] MEDS: TPN PER PHARMACY MC PRN (12:51)
--- NOTE | 2019-06-27 12:52 | NUR ---
Pharmacy TPN Dosing Note S: CHRISTOPHER NEWSOME is a 49 year old M Currently receiving Central Continuous TPN started 06/19/19 B:Pertinent PMH: PANCREATITIS Height: 5 feet, 9 inches Weight: 109.8 kg Current diet: NPO LABS: Sodium: 146 Potassium: 4 Chloride: 109 Calcium: 7.9 Corrected Calcium: 10.06 Magnesium: 2.1 CO2: 30 SCr: 1.3 Glucose: 134-164 Albumin: 1.3 AST: 55 ALT: 49 TPN FORMULA: TPN TYPE: Central Continuous AMINO ACIDS: 145 gm DEXTROSE: 200 gm LIPIDS: 20 gm POTASSIUM PHOSPHATE: 10 mmol MAGNESIUM: 5 mEq CALCIUM: 15 mEq MULTIPLE VITAMIN: 10 ml TRACE ELEMENTS: 0.5 mL TPN PLAN: -D5W infusion ongoing from 06/21 for hypernatremia. Serum Na+ improved, D5W drip d/c. -Change NaPhos to KPhos per MD request. -Other electrolytes appear WNL and stable. -BMP, magnesium tomorrow per nephrology. R: Continue TPN @ current rate and with above changes. Will monitor electrolytes, glucose, and tolerance to TPN. [facility], 06/27/19 [id number]
--- NOTE | 2019-06-27 13:40 | PDOC ---
SURGICAL PROGRESS NOTE Subjective vent, sedated Vital Signs Vital Signs Date Time Temp Pulse Resp B/P (MAP) Pulse Ox O2 Delivery O2 Flow Rate FiO2 06/27/19 12:29 99 Ventilator 06/27/19 12:00 99.7 100 35 114/57 (76) 99.7 06/27/19 09:47 3.0 I&O Intake and Output 06/27/19 07:00 Intake Total 6346.57 ml Output Total 5335 ml Balance 1011.57 ml IV Total 4366.57 ml Blood Product 660 ml Blood Product IV Normal Saline Flush 1320 ml Output Urine Total 3985 ml Gastric Drainage Total 200 ml Drainage Total 1150 ml PATIENT HAS A LEPE: Yes General: No acute distress Abdomen: Soft, Other (drains in place, vac in place) Labs Laboratory Tests Test 06/25/19 13:45 06/25/19 14:51 06/25/19 15:42 06/25/19 16:58 Glucose (Fingerstick) 136 mg/dL (70-99) 114 mg/dL (70-99) 115 mg/dL (70-99) 115 mg/dL (70-99) Test 06/25/19 18:00 06/25/19 19:14 06/25/19 20:08 06/25/19 21:08 Glucose (Fingerstick) 107 mg/dL (70-99) 108 mg/dL (70-99) 110 mg/dL (70-99) 118 mg/dL (70-99) Test 06/25/19 22:23 06/25/19 23:06 06/26/19 00:11 06/26/19 01:16 Glucose (Fingerstick) 166 mg/dL (70-99) 140 mg/dL (70-99) 132 mg/dL (70-99) 129 mg/dL (70-99) Test 06/26/19 02:23 06/26/19 03:14 06/26/19 04:03 06/26/19 05:00 Glucose (Fingerstick) 118 mg/dL (70-99) 117 mg/dL (70-99) 134 mg/dL (70-99) White Blood Count 11.5 x10^3/uL (4.0-11.0) Red Blood Count 2.42 x10^6/uL (4.30-5.70) Hemoglobin 7.0 g/dL (13.0-17.5) Hematocrit 21.6 % (39.0-53.0) Mean Corpuscular Volume 89 fL (79-100) Mean Corpuscular Hemoglobin 29 pg (25-35) Mean Corpuscular Hemoglobin Concent 33 g/dL (31-37) Red Cell Distribution Width 13.9 % (11.5-14.5) Platelet Count 234 x10^3/uL (140-400) Neutrophils (%) (Auto) 79 % (31-73) Lymphocytes (%) (Auto) 10 % (24-48) Monocytes (%) (Auto) 10 % (0-9) Eosinophils (%) (Auto) 0 % (0-3) Basophils (%) (Auto) 0 % (0-3) Neutrophils # (Auto) 9.1 x10^3/uL (1.8-7.7) Lymphocytes # (Auto) 1.1 x10^3/uL (1.0-4.8) Monocytes # (Auto) 1.2 x10^3/uL (0.0-1.1) Eosinophils # (Auto) 0.0 x10^3/uL (0.0-0.7) Basophils # (Auto) 0.0 x10^3/uL (0.0-0.2) Sodium Level 145 mmol/L (136-145) Potassium Level 4.4 mmol/L (3.5-5.1) Chloride Level 111 mmol/L (98-107) Carbon Dioxide Level 28 mmol/L (21-32) Anion Gap 6 (6-14) Blood Urea Nitrogen 62 mg/dL (8-26) Creatinine 1.4 mg/dL (0.7-1.3) Estimated GFR (Cockcroft-Gault) 65.2 Glucose Level 141 mg/dL (70-99) Calcium Level 7.5 mg/dL (8.5-10.1) Phosphorus Level 3.0 mg/dL (2.6-4.7) Magnesium Level 2.2 mg/dL (1.8-2.4) Test 06/26/19 05:06 06/26/19 06:11 06/26/19 07:17 06/26/19 07:35 Glucose (Fingerstick) 140 mg/dL (70-99) 134 mg/dL (70-99) 146 mg/dL (70-99) O2 Saturation 97 % (92-99) Arterial Blood pH 7.43 (7.35-7.45) Arterial Blood pCO2 at Patient Temp 40 mmHg (35-46) Arterial Blood pO2 at Patient Temp 105 mmHg (75-108) Arterial Blood HCO3 26 mmol/L (21-28) Arterial Blood Base Excess 2 mmol/L (-3-3) FiO2 40% Test 06/26/19 08:18 06/26/19 10:29 06/26/19 11:40 06/26/19 12:50 Glucose (Fingerstick) 139 mg/dL (70-99) 181 mg/dL (70-99) 168 mg/dL (70-99) 158 mg/dL (70-99) Test 06/26/19 13:57 06/26/19 15:01 06/26/19 16:14 06/26/19 17:30 Glucose (Fingerstick) 147 mg/dL (70-99) 142 mg/dL (70-99) 140 mg/dL (70-99) 150 mg/dL (70-99) Test 06/26/19 19:32 06/26/19 21:44 06/27/19 00:03 06/27/19 01:10 Glucose (Fingerstick) 142 mg/dL (70-99) 145 mg/dL (70-99) 128 mg/dL (70-99) 122 mg/dL (70-99) Test 06/27/19 02:16 06/27/19 03:27 06/27/19 04:38 06/27/19 05:40 Glucose (Fingerstick) 111 mg/dL (70-99) 119 mg/dL (70-99) 131 mg/dL (70-99) White Blood Count 13.1 x10^3/uL (4.0-11.0) Red Blood Count 3.11 x10^6/uL (4.30-5.70) Hemoglobin 9.1 g/dL (13.0-17.5) Hematocrit 27.4 % (39.0-53.0) Mean Corpuscular Volume 88 fL (79-100) Mean Corpuscular Hemoglobin 29 pg (25-35) Mean Corpuscular Hemoglobin Concent 33 g/dL (31-37) Red Cell Distribution Width 14.7 % (11.5-14.5) Platelet Count 240 x10^3/uL (140-400) Neutrophils (%) (Auto) 80 % (31-73) Lymphocytes (%) (Auto) 9 % (24-48) Monocytes (%) (Auto) 11 % (0-9) Eosinophils (%) (Auto) 0 % (0-3) Basophils (%) (Auto) 0 % (0-3) Neutrophils # (Auto) 10.5 x10^3/uL (1.8-7.7) Lymphocytes # (Auto) 1.2 x10^3/uL (1.0-4.8) Monocytes # (Auto) 1.4 x10^3/uL (0.0-1.1) Eosinophils # (Auto) 0.0 x10^3/uL (0.0-0.7) Basophils # (Auto) 0.0 x10^3/uL (0.0-0.2) Sodium Level 146 mmol/L (136-145) Potassium Level 4.0 mmol/L (3.5-5.1) Chloride Level 109 mmol/L (98-107) Carbon Dioxide Level 30 mmol/L (21-32) Anion Gap 7 (6-14) Blood Urea Nitrogen 60 mg/dL (8-26) Creatinine 1.3 mg/dL (0.7-1.3) Estimated GFR (Cockcroft-Gault) 71.0 Glucose Level 134 mg/dL (70-99) Calcium Level 7.9 mg/dL (8.5-10.1) Phosphorus Level 3.9 mg/dL (2.6-4.7) Magnesium Level 2.1 mg/dL (1.8-2.4) Test 06/27/19 05:47 06/27/19 06:50 06/27/19 07:56 06/27/19 08:55 Glucose (Fingerstick) 135 mg/dL (70-99) 151 mg/dL (70-99) 130 mg/dL (70-99) 144 mg/dL (70-99) O2 Saturation 95 % (92-99) Arterial Blood pH 7.38 (7.35-7.45) Arterial Blood pCO2 at Patient Temp 46 mmHg (35-46) Arterial Blood pO2 at Patient Temp 84 mmHg (75-108) Arterial Blood HCO3 26 mmol/L (21-28) Arterial Blood Base Excess 1 mmol/L (-3-3) FiO2 40 Test 06/27/19 11:13 06/27/19 12:41 Glucose (Fingerstick) 158 mg/dL (70-99) 164 mg/dL (70-99) Laboratory Tests Test 06/26/19 13:57 06/26/19 15:01 06/26/19 16:14 06/26/19 17:30 Glucose (Fingerstick) 147 mg/dL (70-99) 142 mg/dL (70-99) 140 mg/dL (70-99) 150 mg/dL (70-99) Test 06/26/19 19:32 06/26/19 21:44 06/27/19 00:03 06/27/19 01:10 Glucose (Fingerstick) 142 mg/dL (70-99) 145 mg/dL (70-99) 128 mg/dL (70-99) 122 mg/dL (70-99) Test 06/27/19 02:16 06/27/19 03:27 06/27/19 04:38 06/27/19 05:40 Glucose (Fingerstick) 111 mg/dL (70-99) 119 mg/dL (70-99) 131 mg/dL (70-99) White Blood Count 13.1 x10^3/uL (4.0-11.0) Red Blood Count 3.11 x10^6/uL (4.30-5.70) Hemoglobin 9.1 g/dL (13.0-17.5) Hematocrit 27.4 % (39.0-53.0) Mean Corpuscular Volume 88 fL (79-100) Mean Corpuscular Hemoglobin 29 pg (25-35) Mean Corpuscular Hemoglobin Concent 33 g/dL (31-37) Red Cell Distribution Width 14.7 % (11.5-14.5) Platelet Count 240 x10^3/uL (140-400) Neutrophils (%) (Auto) 80 % (31-73) Lymphocytes (%) (Auto) 9 % (24-48) Monocytes (%) (Auto) 11 % (0-9) Eosinophils (%) (Auto) 0 % (0-3) Basophils (%) (Auto) 0 % (0-3) Neutrophils # (Auto) 10.5 x10^3/uL (1.8-7.7) Lymphocytes # (Auto) 1.2 x10^3/uL (1.0-4.8) Monocytes # (Auto) 1.4 x10^3/uL (0.0-1.1) Eosinophils # (Auto) 0.0 x10^3/uL (0.0-0.7) Basophils # (Auto) 0.0 x10^3/uL (0.0-0.2) Sodium Level 146 mmol/L (136-145) Potassium Level 4.0 mmol/L (3.5-5.1) Chloride Level 109 mmol/L (98-107) Carbon Dioxide Level 30 mmol/L (21-32) Anion Gap 7 (6-14) Blood Urea Nitrogen 60 mg/dL (8-26) Creatinine 1.3 mg/dL (0.7-1.3) Estimated GFR (Cockcroft-Gault) 71.0 Glucose Level 134 mg/dL (70-99) Calcium Level 7.9 mg/dL (8.5-10.1) Phosphorus Level 3.9 mg/dL (2.6-4.7) Magnesium Level 2.1 mg/dL (1.8-2.4) Test 06/27/19 05:47 06/27/19 06:50 06/27/19 07:56 06/27/19 08:55 Glucose (Fingerstick) 135 mg/dL (70-99) 151 mg/dL (70-99) 130 mg/dL (70-99) 144 mg/dL (70-99) O2 Saturation 95 % (92-99) Arterial Blood pH 7.38 (7.35-7.45) Arterial Blood pCO2 at Patient Temp 46 mmHg (35-46) Arterial Blood pO2 at Patient Temp 84 mmHg (75-108) Arterial Blood HCO3 26 mmol/L (21-28) Arterial Blood Base Excess 1 mmol/L (-3-3) FiO2 40 Test 06/27/19 11:13 06/27/19 12:41 Glucose (Fingerstick) 158 mg/dL (70-99) 164 mg/dL (70-99) Problem List Problems Medical Problems: (1) Acute pancreatitis Status: Acute (2) Nausea & vomiting Status: Acute Assessment/Plan supportive measures MAXIMILIANO GREENBERG APRN Jun 27, 2019 13:40
[2019-06-27] MEDS: FUROSEMIDE 40 MG/4 ML VIAL. IVP SCH (15:42)
[2019-06-27] MEDS: ACETAMINOPHEN 650 MG SUPP.RECT. PR PRN (17:06)
[2019-06-27] MEDS: INSULIN GLARGINE SYRINGE. SQ SCH (20:39)
[2019-06-27] MEDS ORDERED: [UNRECOGNIZED DRUG - OTHER] IV SCH ×16 (22:00)
[2019-06-27] MEDS ORDERED: AMINO ACID IV SCH ×16 (22:00)
[2019-06-27] MEDS ORDERED: DEXTROSE 70% IV SCH ×16 (22:00)
[2019-06-27] MEDS ORDERED: TOTAL PARENTERAL NUTRITION IV SCH ×16 (22:00)
[2019-06-28] VITALS (24 sets, daily range): BP systolic 79–167; BP diastolic 49–84
[2019-06-28] MEDS: MEROPENEM 500 MG in IV NORMAL SALINE 50ML 50 ML IV SCH ×4 (00:39→23:39)
[2019-06-28] MEDS: INSULIN LISPRO 300 UNITS/3 ML VIAL. SQ SCH ×6 (04:00→20:00)
[2019-06-28] MEDS: ALBUTEROL SULFATE 2.5 MG/3 ML NEBU. NEB SCH ×4 (08:20→20:17)
[2019-06-28] MEDS: CHLORHEXIDINE 0.12% 15 ML MOUTHWASH. MM SCH ×2 (09:00→21:00)
[2019-06-28] MEDS: MICAFUNGIN 100 MG in IV DEXTROSE 5% 100ML 100 ML IV SCH (09:00)
[2019-06-28] MEDS: FUROSEMIDE 40 MG/4 ML VIAL. IVP SCH (09:00)
[2019-06-28] MEDS: PROPOFOL 100 ML IV PRN ×2 (11:32→23:45)
--- NOTE | 2019-06-28 12:06 | PDOC ---
PULMONARY PROGRESS NOTES Subjective on vent, sedated, trach 06/21, on precedex, fentanyl, propofol Vitals Vital Signs Date Time Temp Pulse Resp B/P (MAP) Pulse Ox O2 Delivery O2 Flow Rate FiO2 06/28/19 11:17 97 Ventilator 06/28/19 00:00 101.7 99 28 101/54 (70) 101.7 06/27/19 09:47 3.0 Comments ros unable to obtain on vent, sedated HEENT: Other (nc at perrl nose clear, neck, trach site ok, no lad, no thyromegaly) Lungs: Crackles Cardiovascular: S1, S2 Abdomen: Soft, Non-tender, Other (/distended/firm ) Extremities: No Edema Skin: Warm Labs Laboratory Tests Test 06/26/19 12:50 06/26/19 13:57 06/26/19 15:01 06/26/19 16:14 Glucose (Fingerstick) 158 mg/dL (70-99) 147 mg/dL (70-99) 142 mg/dL (70-99) 140 mg/dL (70-99) Test 06/26/19 17:30 06/26/19 19:32 06/26/19 21:44 06/27/19 00:03 Glucose (Fingerstick) 150 mg/dL (70-99) 142 mg/dL (70-99) 145 mg/dL (70-99) 128 mg/dL (70-99) Test 06/27/19 01:10 06/27/19 02:16 06/27/19 03:27 06/27/19 04:38 Glucose (Fingerstick) 122 mg/dL (70-99) 111 mg/dL (70-99) 119 mg/dL (70-99) 131 mg/dL (70-99) Test 06/27/19 05:40 06/27/19 05:47 06/27/19 06:50 06/27/19 07:56 White Blood Count 13.1 x10^3/uL (4.0-11.0) Red Blood Count 3.11 x10^6/uL (4.30-5.70) Hemoglobin 9.1 g/dL (13.0-17.5) Hematocrit 27.4 % (39.0-53.0) Mean Corpuscular Volume 88 fL (79-100) Mean Corpuscular Hemoglobin 29 pg (25-35) Mean Corpuscular Hemoglobin Concent 33 g/dL (31-37) Red Cell Distribution Width 14.7 % (11.5-14.5) Platelet Count 240 x10^3/uL (140-400) Neutrophils (%) (Auto) 80 % (31-73) Lymphocytes (%) (Auto) 9 % (24-48) Monocytes (%) (Auto) 11 % (0-9) Eosinophils (%) (Auto) 0 % (0-3) Basophils (%) (Auto) 0 % (0-3) Neutrophils # (Auto) 10.5 x10^3/uL (1.8-7.7) Lymphocytes # (Auto) 1.2 x10^3/uL (1.0-4.8) Monocytes # (Auto) 1.4 x10^3/uL (0.0-1.1) Eosinophils # (Auto) 0.0 x10^3/uL (0.0-0.7) Basophils # (Auto) 0.0 x10^3/uL (0.0-0.2) Sodium Level 146 mmol/L (136-145) Potassium Level 4.0 mmol/L (3.5-5.1) Chloride Level 109 mmol/L (98-107) Carbon Dioxide Level 30 mmol/L (21-32) Anion Gap 7 (6-14) Blood Urea Nitrogen 60 mg/dL (8-26) Creatinine 1.3 mg/dL (0.7-1.3) Estimated GFR (Cockcroft-Gault) 71.0 Glucose Level 134 mg/dL (70-99) Calcium Level 7.9 mg/dL (8.5-10.1) Phosphorus Level 3.9 mg/dL (2.6-4.7) Magnesium Level 2.1 mg/dL (1.8-2.4) Glucose (Fingerstick) 135 mg/dL (70-99) 151 mg/dL (70-99) 130 mg/dL (70-99) Test 06/27/19 08:55 06/27/19 11:13 06/27/19 12:41 06/27/19 14:04 O2 Saturation 95 % (92-99) Arterial Blood pH 7.38 (7.35-7.45) Arterial Blood pCO2 at Patient Temp 46 mmHg (35-46) Arterial Blood pO2 at Patient Temp 84 mmHg (75-108) Arterial Blood HCO3 26 mmol/L (21-28) Arterial Blood Base Excess 1 mmol/L (-3-3) FiO2 40 Glucose (Fingerstick) 144 mg/dL (70-99) 158 mg/dL (70-99) 164 mg/dL (70-99) 147 mg/dL (70-99) Test 06/27/19 16:22 06/27/19 19:34 06/27/19 22:19 06/28/19 00:28 Glucose (Fingerstick) 114 mg/dL (70-99) 103 mg/dL (70-99) 140 mg/dL (70-99) 142 mg/dL (70-99) Test 06/28/19 03:18 06/28/19 06:00 06/28/19 08:19 06/28/19 10:13 Glucose (Fingerstick) 98 mg/dL (70-99) 138 mg/dL (70-99) 142 mg/dL (70-99) 152 mg/dL (70-99) Laboratory Tests Test 06/27/19 12:41 06/27/19 14:04 06/27/19 16:22 06/27/19 19:34 Glucose (Fingerstick) 164 mg/dL (70-99) 147 mg/dL (70-99) 114 mg/dL (70-99) 103 mg/dL (70-99) Test 06/27/19 22:19 06/28/19 00:28 06/28/19 03:18 06/28/19 06:00 Glucose (Fingerstick) 140 mg/dL (70-99) 142 mg/dL (70-99) 98 mg/dL (70-99) 138 mg/dL (70-99) Test 06/28/19 08:19 06/28/19 10:13 Glucose (Fingerstick) 142 mg/dL (70-99) 152 mg/dL (70-99) Medications Active Scripts Medications Dose Route/Sig Max Daily Dose Days Date Category Comments CXR reviewed l minimal atelectasis, effusion ct abdomen 06/21 report reviewed Impression . IMPRESSION: 1. Acute hypoxemic respiratory failure, multifactorial. 2. Acute gallstone pancreatitis./ Necrosis. s/p Exploratory laparotomy, pancreatic necrosectomy, cholecystostomy tube placement, Gastrostomy placement with jejunal extension, tracheostomy placement (specifically 8 shiley cuffed) 06/21 3. Acute kidney failure. improving 4. Metabolic toxic encephalopathy. 5. Hyperkalemia.corrected 6. Metabolic / respiratory acidosis 7. Hypocalcemia. 8. POSSIBLE ABD COMPARTMENT SYNDROME , s/p Exp lap 9. HEP B S POSITIVE 10. Hypernatremia 11. LLL small effusion, monitor Plan . cont vent support, setting reviewed, decrease sedation, weaning as tolerated PRN suctioning, BD Pain control: avoid oversedation Follow CXR/ABG ABX per ID ct abdomen report reviewed 06/21. Follow surgery recs elevate hob TPN per surgery D/W RN/RT CHRIS TINOCO MD Jun 28, 2019 12:06
[2019-06-28 12:21] LABS: BASE EXCESS ABG 1 mmol/L (-3-3); FIO2 ABG 40; HCO3 ABG 25 mmol/L (21-28); PCO2 ABG 37 mmHg (35-46); PO2 ABG 85 mmHg (75-108); SAT O2 ABG 96 % (92-99)
[2019-06-28 12:49] LABS: CALCIUM 7.9 mg/dL (8.5-10.1); CREATININE 1.3 mg/dL (0.7-1.3); POTASSIUM 3.4 mmol/L (3.5-5.1)
--- NOTE | 2019-06-28 13:32 | PN ---
DATE: 06/28/2019 CHIEF COMPLAINT: Respiratory failure, severe pancreatitis. SUBJECTIVE: The patient is a pleasant 49-year-old male who has been here for the past 17 days, he has severe pancreatitis and respiratory failure. He is being examined in the ICU on the vent. OBJECTIVE: VITAL SIGNS: Stable. GENERAL: He is sedated on the vent. HEART: Distant S1, S2. LUNGS: Slight coarseness. ABDOMEN: Soft, no bowel sounds, there is 5 drains. NEUROLOGIC: He is sedated. EXTREMITIES: 1+ edema. He was put on vent with the following settings assist control; respirations 20; tidal volume 500; FiO2 of 40%, PEEP of 5. He is sedated with propofol, fentanyl and Precedex. He also has TPN running. ASSESSMENT AND PLAN: Severe sepsis, severe pancreatitis, severe respiratory failure. PLAN: Continue vent weaning, IV TPN, ICU monitoring, IV antibiotics, DVT prophylaxis. We are following 5 drains carefully. Wound care. Prognosis is extremely guarded. He is critically ill. TOTAL TIME: 32 minutes. JUSTIN WORKMAN DO DR: MOHAN/justyn JOB#: [id number] / [id number]
--- NOTE | 2019-06-28 13:36 | PDOC ---
PROGRESS NOTES Subjective Subjective SEEN IN FOLLOW UP OF ARF AND TPN Objective Objective Vital Signs Date Time Temp Pulse Resp B/P (MAP) Pulse Ox O2 Delivery O2 Flow Rate FiO2 06/28/19 13:24 99 Ventilator 06/28/19 12:00 99.9 95 28 116/72 (87) 99.9 06/27/19 09:47 3.0 Intake and Output 06/28/19 07:00 Intake Total 2615 ml Output Total 3780 ml Balance -1165 ml IV Total 2615 ml Output Urine Total 2885 ml Gastric Drainage Total 100 ml Oral Regurgitation 200 ml Drainage Total 595 ml Physical Exam Abdomen: Normal bowel sounds, Soft, No tenderness, No hepatosplenomegaly, No masses Heart: Regular rate, Normal S1, Normal S2, No murmurs, Gallops Extremities: No clubbing, No cyanosis, No edema, Normal pulses, No tenderness/swelling General: Other (SEDATED) Lungs: Clear to auscultation, Normal air movement, Other (ON VENT) Diagnosis RENAL FAILURE: Acute (Acute tubular necrosis) Assessment Assessment Problems Medical Problems: (1) Acute pancreatitis Status: Acute (2) Nausea & vomiting Status: Acute Plan Plan of Care RENAL FUNCTION IS STABLE. CONT TPN PER LAB. REMAINS ON VENT Comment Review of Relevant I have reviewed the following items alexandra (where applicable) has been applied. Labs Laboratory Tests Test 06/26/19 13:57 06/26/19 15:01 06/26/19 16:14 06/26/19 17:30 Glucose (Fingerstick) 147 mg/dL (70-99) 142 mg/dL (70-99) 140 mg/dL (70-99) 150 mg/dL (70-99) Test 06/26/19 19:32 06/26/19 21:44 06/27/19 00:03 06/27/19 01:10 Glucose (Fingerstick) 142 mg/dL (70-99) 145 mg/dL (70-99) 128 mg/dL (70-99) 122 mg/dL (70-99) Test 06/27/19 02:16 06/27/19 03:27 06/27/19 04:38 06/27/19 05:40 Glucose (Fingerstick) 111 mg/dL (70-99) 119 mg/dL (70-99) 131 mg/dL (70-99) White Blood Count 13.1 x10^3/uL (4.0-11.0) Red Blood Count 3.11 x10^6/uL (4.30-5.70) Hemoglobin 9.1 g/dL (13.0-17.5) Hematocrit 27.4 % (39.0-53.0) Mean Corpuscular Volume 88 fL (79-100) Mean Corpuscular Hemoglobin 29 pg (25-35) Mean Corpuscular Hemoglobin Concent 33 g/dL (31-37) Red Cell Distribution Width 14.7 % (11.5-14.5) Platelet Count 240 x10^3/uL (140-400) Neutrophils (%) (Auto) 80 % (31-73) Lymphocytes (%) (Auto) 9 % (24-48) Monocytes (%) (Auto) 11 % (0-9) Eosinophils (%) (Auto) 0 % (0-3) Basophils (%) (Auto) 0 % (0-3) Neutrophils # (Auto) 10.5 x10^3/uL (1.8-7.7) Lymphocytes # (Auto) 1.2 x10^3/uL (1.0-4.8) Monocytes # (Auto) 1.4 x10^3/uL (0.0-1.1) Eosinophils # (Auto) 0.0 x10^3/uL (0.0-0.7) Basophils # (Auto) 0.0 x10^3/uL (0.0-0.2) Sodium Level 146 mmol/L (136-145) Potassium Level 4.0 mmol/L (3.5-5.1) Chloride Level 109 mmol/L (98-107) Carbon Dioxide Level 30 mmol/L (21-32) Anion Gap 7 (6-14) Blood Urea Nitrogen 60 mg/dL (8-26) Creatinine 1.3 mg/dL (0.7-1.3) Estimated GFR (Cockcroft-Gault) 71.0 Glucose Level 134 mg/dL (70-99) Calcium Level 7.9 mg/dL (8.5-10.1) Phosphorus Level 3.9 mg/dL (2.6-4.7) Magnesium Level 2.1 mg/dL (1.8-2.4) Test 06/27/19 05:47 06/27/19 06:50 06/27/19 07:56 06/27/19 08:55 Glucose (Fingerstick) 135 mg/dL (70-99) 151 mg/dL (70-99) 130 mg/dL (70-99) 144 mg/dL (70-99) O2 Saturation 95 % (92-99) Arterial Blood pH 7.38 (7.35-7.45) Arterial Blood pCO2 at Patient Temp 46 mmHg (35-46) Arterial Blood pO2 at Patient Temp 84 mmHg (75-108) Arterial Blood HCO3 26 mmol/L (21-28) Arterial Blood Base Excess 1 mmol/L (-3-3) FiO2 40 Test 06/27/19 11:13 06/27/19 12:41 06/27/19 14:04 06/27/19 16:22 Glucose (Fingerstick) 158 mg/dL (70-99) 164 mg/dL (70-99) 147 mg/dL (70-99) 114 mg/dL (70-99) Test 06/27/19 19:34 06/27/19 22:19 06/28/19 00:28 06/28/19 03:18 Glucose (Fingerstick) 103 mg/dL (70-99) 140 mg/dL (70-99) 142 mg/dL (70-99) 98 mg/dL (70-99) Test 06/28/19 06:00 06/28/19 08:00 06/28/19 08:19 06/28/19 08:30 Glucose (Fingerstick) 138 mg/dL (70-99) 142 mg/dL (70-99) Sodium Level 147 mmol/L (136-145) Potassium Level 3.4 mmol/L (3.5-5.1) Chloride Level 108 mmol/L (98-107) Carbon Dioxide Level 29 mmol/L (21-32) Anion Gap 10 (6-14) Blood Urea Nitrogen 68 mg/dL (8-26) Creatinine 1.3 mg/dL (0.7-1.3) Estimated GFR (Cockcroft-Gault) 71.0 Glucose Level 114 mg/dL (70-99) Calcium Level 7.9 mg/dL (8.5-10.1) Magnesium Level 2.0 mg/dL (1.8-2.4) O2 Saturation 96 % (92-99) Arterial Blood pH 7.45 (7.35-7.45) Arterial Blood pCO2 at Patient Temp 37 mmHg (35-46) Arterial Blood pO2 at Patient Temp 85 mmHg (75-108) Arterial Blood HCO3 25 mmol/L (21-28) Arterial Blood Base Excess 1 mmol/L (-3-3) FiO2 40 Test 06/28/19 10:13 06/28/19 13:01 Glucose (Fingerstick) 152 mg/dL (70-99) 166 mg/dL (70-99) Laboratory Tests Test 06/27/19 14:04 06/27/19 16:22 06/27/19 19:34 06/27/19 22:19 Glucose (Fingerstick) 147 mg/dL (70-99) 114 mg/dL (70-99) 103 mg/dL (70-99) 140 mg/dL (70-99) Test 06/28/19 00:28 06/28/19 03:18 06/28/19 06:00 06/28/19 08:00 Glucose (Fingerstick) 142 mg/dL (70-99) 98 mg/dL (70-99) 138 mg/dL (70-99) Sodium Level 147 mmol/L (136-145) Potassium Level 3.4 mmol/L (3.5-5.1) Chloride Level 108 mmol/L (98-107) Carbon Dioxide Level 29 mmol/L (21-32) Anion Gap 10 (6-14) Blood Urea Nitrogen 68 mg/dL (8-26) Creatinine 1.3 mg/dL (0.7-1.3) Estimated GFR (Cockcroft-Gault) 71.0 Glucose Level 114 mg/dL (70-99) Calcium Level 7.9 mg/dL (8.5-10.1) Magnesium Level 2.0 mg/dL (1.8-2.4) Test 06/28/19 08:19 06/28/19 08:30 06/28/19 10:13 06/28/19 13:01 Glucose (Fingerstick) 142 mg/dL (70-99) 152 mg/dL (70-99) 166 mg/dL (70-99) O2 Saturation 96 % (92-99) Arterial Blood pH 7.45 (7.35-7.45) Arterial Blood pCO2 at Patient Temp 37 mmHg (35-46) Arterial Blood pO2 at Patient Temp 85 mmHg (75-108) Arterial Blood HCO3 25 mmol/L (21-28) Arterial Blood Base Excess 1 mmol/L (-3-3) FiO2 40 Microbiology 06/26/19 Blood Culture - Preliminary, Resulted NO GROWTH AFTER 2 DAYS 06/23/19 - Final, Resulted 06/23/19 - Final, Resulted 06/23/19 - Final, Resulted 06/23/19 - Preliminary, Resulted 06/23/19 - Preliminary, Resulted 06/23/19 - Preliminary, Resulted 06/23/19 Gram Stain Evaluation - Final, Resulted 06/23/19 Sputum Culture - Final, Resulted 06/23/19 Sputum Result 1 - Final, Resulted 06/22/19 AFB Specimen Processing Tissue - Final, Resulted 06/22/19 Acid Fast Bacilli Culture, Resulted Pending 06/22/19 Gram Stain - Final, Resulted 06/22/19 Fungal Culture, Resulted Pending 06/22/19 Fungal Culture Result 1, Resulted Pending Medications Current Medications Morphine Sulfate (Morphine Sulfate) 4 mg PRN Q15MIN PRN IV/SQ PAIN GREATER THAN 3/10 Last administered on 06/11/19at 04:58; Start 06/11/19 at 04:30; Stop 06/11/19 at 16:47; Status DC Sodium Chloride 1,000 ml @ 1,000 mls/hr Q1H IV Last administered on 06/11/19at 04:34; Start 06/11/19 at 04:30; Stop 06/11/19 at 05:29; Status DC Ondansetron HCl (Zofran) 4 mg 1X ONCE IV Last administered on 06/11/19at 04:33; Start 06/11/19 at 04:30; Stop 06/11/19 at 04:33; Status DC Iohexol (Omnipaque 350 Mg/ml) 100 ml 1X ONCE IV Last administered on 06/11/19at 05:01; Start 06/11/19 at 04:45; Stop 06/11/19 at 04:46; Status DC Info (CONTRAST GIVEN -- Rx MONITORING) 1 each PRN DAILY PRN MC SEE COMMENTS; Start 06/11/19 at 04:45; Stop 06/13/19 at 04:44; Status DC Fentanyl Citrate (Fentanyl 2ml Vial) 100 mcg STK-MED ONCE .ROUTE ; Start 06/11/19 at 04:42; Stop 06/11/19 at 04:42; Status DC Fentanyl Citrate (Fentanyl 2ml Vial) 50 mcg 1X ONCE IVP Last administered on 06/11/19at 04:45; Start 06/11/19 at 05:00; Stop 06/11/19 at 05:01; Status DC Ondansetron HCl (Zofran) 4 mg PRN Q8HRS PRN IV NAUSEA/VOMITING Last administered on 06/12/19at 03:29; Start 06/11/19 at 05:45; Stop 06/12/19 at 05:44; Status DC Morphine Sulfate (Morphine Sulfate) 4 mg PRN Q2HR PRN IV PAIN Last administered on 06/11/19at 07:37; Start 06/11/19 at 05:45; Stop 06/11/19 at 11:54; Status DC Sodium Chloride 1,000 ml @ 150 mls/hr Q6H40M IV Last administered on 06/12/19at 03:28; Start 06/11/19 at 05:45; Stop 06/12/19 at 11:01; Status DC Hydromorphone HCl (Dilaudid) 0.5 mg PRN Q3HRS PRN IV PAIN Last administered on 06/11/19at 08:38; Start 06/11/19 at 05:45; Stop 06/11/19 at 09:12; Status DC Potassium Chloride/Water 100 ml @ 100 mls/hr Q1H IV Last administered on 06/11/19at 08:41; Start 06/11/19 at 06:00; Stop 06/11/19 at 07:59; Status DC Hydromorphone HCl (Dilaudid) 1 mg PRN Q3HRS PRN IV PAIN Last administered on 06/11/19at 09:29; Start 06/11/19 at 09:15; Stop 06/11/19 at 11:54; Status DC Prochlorperazine Edisylate (Compazine) 10 mg PRN Q8HRS PRN IV NAUSEA/VOMITING, 2ND CHOICE Last administered on 06/12/19at 14:59; Start 06/11/19 at 12:00 Hydromorphone HCl (Dilaudid) 1 mg PRN Q2HRS PRN IV SEVERE PAIN Last administered on 06/21/19at 14:36; Start 06/11/19 at 12:00 Pantoprazole Sodium (PROTONIX VIAL for IV PUSH) 40 mg DAILYAC IVP Last administered on 06/12/19at 08:29; Start 06/11/19 at 15:00; Stop 06/12/19 at 16:23; Status DC Lorazepam (Ativan Inj) 1 mg PRN Q6HRS PRN IVP ANXIETY / AGITATION Last administered on 06/14/19at 13:00; Start 06/11/19 at 18:15 Hydralazine HCl (Apresoline Inj) 10 mg PRN Q6HRS PRN IVP ELEVATED BP, SEE COMMENTS Last administered on 06/18/19at 09:32; Start 06/11/19 at 18:15; Stop 06/21/19 at 09:12; Status DC Nystatin (Nystop) 1 devorah PRN QID PRN TP FUNGAL RASH Last administered on 06/11/19at 23:19; Start 06/11/19 at 23:15 Sodium Chloride 1,000 ml @ 1,000 mls/hr 1X ONCE IV Last administered on 06/12/19at 05:27; Start 06/12/19 at 06:00; Stop 06/12/19 at 06:59; Status DC Sodium Chloride 1,000 ml @ 1,000 mls/hr 1X ONCE IV Last administered on 06/12at 05:25; Start 06/12/19 at 05:00; Stop 06/12/19 at 05:59; Status DC Sodium Chloride 1,000 ml @ 200 mls/hr Q5H IV Last administered on 06/12/19at 06:36; Start 06/12/19 at 07:00; Stop 06/12/19 at 11:01; Status DC Sodium Bicarbonate 50 meq/Sodium Chloride 1,050 ml @ 150 mls/hr Q7H IV Last administered on 06/13/19at 04:16; Start 06/12/19 at 11:00; Stop 06/13/19 at 14:48; Status DC Amino Acids/ Glycerin/ Electrolytes 1,000 ml @ 80 mls/hr [id number] IV ; Start 06/12/19 at 10:00; Status UNV Amino Acids/ Electrolytes/ Dextrose 1,000 ml @ 80 mls/hr [id number] IV ; Start 06/12/19 at 10:15; Stop 06/18/19 at 13:50; Status DC Piperacillin Sod/ Tazobactam Sod (Zosyn Per Pharmacy) 1 each PRN DAILY PRN MC SEE COMMENTS; Start 06/12/19 at 13:15; Stop 06/12/19 at 19:16; Status DC Piperacillin Sod/ Tazobactam Sod 2.25 gm/Sodium Chloride 50 ml @ 100 mls/hr Q6HRS IV Last administered on 06/12/19at 13:48; Start 06/12/19 at 13:30; Stop 06/12/19 at 19:15; Status DC Sodium Bicarbonate (Sodium Bicarb Adult 8.4% Syr) 50 meq 1X ONCE IV Last administered on 06/12/19at 16:12; Start 06/12/19 at 16:00; Stop 06/12/19 at 16:01; Status DC Calcium Gluconate 1000 mg/Sodium Chloride 110 ml @ 220 mls/hr 1X ONCE IV Last administered on 06/12/19at 16:13; Start 06/12/19 at 16:00; Stop 06/12/19 at 16:29; Status DC Dextrose (Dextrose 50%-Water Syringe) 25 gm 1X ONCE IV Last administered on 06/12/19at 16:13; Start 06/12/19 at 16:00; Stop 06/12/19 at 16:01; Status DC Insulin Human Regular (HumuLIN R VIAL) 10 unit 1X ONCE IV Last administered on 06/12/19at 16:14; Start 06/12/19 at 16:00; Stop 06/12/19 at 16:01; Status DC Furosemide (Lasix) 40 mg 1X ONCE IVP Last administered on 06/12/19at 16:13; Start 06/12/19 at 16:00; Stop 06/12/19 at 16:01; Status DC Pantoprazole Sodium (PROTONIX VIAL for IV PUSH) 40 mg [id number] IVP Last administered on 06/13/19at 06:21; Start 06/12/19 at 18:00; Stop 06/13/19 at 18:49; Status DC Meropenem 500 mg/ Sodium Chloride 50 ml @ 100 mls/hr Q12HR IV Last administered on 06/17/19at 20:59; Start 06/12/19 at 21:00; Stop 06/18/19 at 07:26; Status DC Calcium Gluconate 1000 mg/Sodium Chloride 110 ml @ 220 mls/hr 1X ONCE IV Last administered on 06/12/19at 20:35; Start 06/12/19 at 19:15; Stop 06/12/19 at 19:44; Status DC Lidocaine HCl (Buffered Lidocaine 1%) 3 ml STK-MED ONCE .ROUTE ; Start 06/13/19 at 08:47; Stop 06/13/19 at 08:47; Status DC Lidocaine HCl (Buffered Lidocaine 1%) 6 ml 1X ONCE INJ Last administered on 06/13/19at 09:23; Start 06/13/19 at 09:30; Stop 06/13/19 at 09:31; Status DC Insulin Human Lispro (HumaLOG) 0-7 UNITS TIDWMEALS SQ Last administered on 06/13/19at 12:14; Start 06/13/19 at 12:00; Stop 06/14/19 at 23:29; Status DC Dextrose (Dextrose 50%-Water Syringe) 12.5 gm PRN Q15MIN PRN IV SEE COMMENTS; Start 06/13/19 at 11:15; Stop 06/14/19 at 23:29; Status DC Insulin Human Regular 100 unit/ Sodium Chloride 101 ml @ 0 mls/hr CONT PRN IV SEE I/O RECORD Last administered on 06/13/19at 15:03; Start 06/13/19 at 14:15; Stop 06/21/19 at 12:37; Status DC Sodium Chloride 1,000 ml @ 1,000 mls/hr Q1H PRN IV hypotension; Start 06/13/19 at 14:00; Stop 06/13/19 at 19:59; Status DC Sodium Chloride 1,000 ml @ 400 mls/hr Q2H30M PRN IV PATENCY; Start 06/13/19 at 14:00; Stop 06/14/19 at 01:59; Status DC Info (PHARMACY MONITORING -- do not chart) 1 each PRN DAILY PRN MC SEE COMMENTS; Start 06/13/19 at 14:45; Stop 06/13/19 at 14:51; Status DC Info (PHARMACY MONITORING -- do not chart) 1 each PRN DAILY PRN MC SEE COMMENTS; Start 06/13/19 at 14:45; Stop 06/27/19 at 12:33; Status DC Pantoprazole Sodium (PROTONIX VIAL for IV PUSH) 40 mg [id number] IVP Last administered on 06/27/19at 20:39; Start 06/13/19 at 21:00 Dexmedetomidine HCl 400 mcg/ Sodium Chloride 100 ml @ 0 mls/hr CONT PRN IV PER PROTOCOL Last administered on 06/21/19at 05:52; Start 06/13/19 at 19:00; Stop 06/21/19 at 19:39; Status DC Sodium Chloride 500 ml @ 500 mls/hr 1X PRN PRN IV SEE COMMENTS; Start 06/13/19 at 19:00 Atropine Sulfate (ATROPINE 0.5mg SYRINGE) 0.5 mg PRN Q5MIN PRN IV SEE COMMENTS; Start 06/13/19 at 19:00; Stop 06/27/19 at 12:28; Status DC Sodium Chloride 1,000 ml @ 1,000 mls/hr Q1H PRN IV hypotension; Start 06/14/19 at 08:55; Stop 06/14/19 at 14:54; Status DC Albumin Human 200 ml @ 200 mls/hr 1X PRN PRN IV Hypotension Last administered on 06/14/19at 09:40; Start 06/14/19 at 09:00; Stop 06/14/19 at 14:59; Status DC Sodium Chloride 1,000 ml @ 400 mls/hr Q2H30M PRN IV PATENCY; Start 06/14/19 at 08:55; Stop 06/14/19 at 20:54; Status DC Info (PHARMACY MONITORING -- do not chart) 1 each PRN DAILY PRN MC SEE COMMENTS; Start 06/14/19 at 09:00; Stop 06/14/19 at 09:06; Status DC Info (PHARMACY MONITORING -- do not chart) 1 each PRN DAILY PRN MC SEE COMMENTS; Start 06/14/19 at 09:00; Stop 06/14/19 at 09:06; Status DC Calcium Chloride 2000 mg/Sodium Chloride 120 ml @ 240 mls/hr PRN QID PRN IV for CALCIUM < 5.8 Last administered on 06/15/19at 08:32; Start 06/14/19 at 10:15; Stop 06/15/19 at 09:58; Status DC Magnesium Sulfate 50 ml @ 25 mls/hr PRN DAILY PRN IV for Mag < 1.7 on am labs; Start 06/14/19 at 10:30 Norepinephrine Bitartrate 8 mg/ Dextrose 258 ml @ 20.027 mls/ hr CONT PRN IV PER PROTOCOL Last administered on 06/14/19at 10:31; Start 06/14/19 at 10:30 Succinylcholine Chloride (Anectine) 200 mg STK-MED ONCE .ROUTE ; Start 06/14/19 at 12:22; Stop 06/14/19 at 12:23; Status DC Etomidate (Amidate) 20 mg STK-MED ONCE IV ; Start 06/14/19 at 12:22; Stop 06/14/19 at 12:23; Status DC Fentanyl Citrate 30 ml @ 0 mls/hr CONT PRN IV SEE PROTOCOL Last administered on 06/19/19at 08:10; Start 06/14/19 at 12:45; Stop 06/19/19 at 11:00; Status DC Chlorhexidine Gluconate (Peridex) 15 ml BID MM Last administered on 06/27/19at 20:39; Start 06/14/19 at 21:00 Midazolam HCl 50 mg/Sodium Chloride 50 ml @ 0 mls/hr CONT PRN IV SEE PROTOCOL Last administered on 06/26/19at 19:35; Start 06/14/19 at 12:45 Midazolam HCl (Versed) 5 mg STK-MED ONCE .ROUTE ; Start 06/14/19 at 12:48; Stop 06/14/19 at 12:48; Status DC Fentanyl Citrate (Fentanyl 2ml Vial) 100 mcg STK-MED ONCE .ROUTE ; Start 06/14/19 at 12:48; Stop 06/14/19 at 12:48; Status DC Midazolam HCl (Versed) 5 mg 1X ONCE IV Last administered on 06/14/19at 12:59; Start 06/14/19 at 13:00; Stop 06/14/19 at 13:01; Status DC Fentanyl Citrate (Fentanyl 2ml Vial) 100 mcg 1X ONCE IM Last administered on 06/14/19at 12:58; Start 06/14/19 at 13:00; Stop 06/14/19 at 13:01; Status DC Succinylcholine Chloride (Anectine) 200 mg 1X ONCE IV Last administered on 06/14/19at 12:59; Start 06/14/19 at 13:00; Stop 06/14/19 at 13:01; Status DC Etomidate (Amidate) 14 mg 1X ONCE IV Last administered on 06/14/19at 12:59; Start 06/14/19 at 13:00; Stop 06/14/19 at 13:01; Status DC Acetaminophen (Tylenol Supp) 650 mg PRN Q6HRS PRN IN MILD PAIN / TEMP Last administered on 06/27/19at 17:06; Start 06/14/19 at 20:00 Linezolid/Dextrose 300 ml @ 300 mls/hr Q12HR IV Last administered on 06/27/19at 20:39; Start 06/14/19 at 21:00 Insulin Human Lispro (HumaLOG) 0-7 UNITS TIDWMEALS SQ ; Start 06/15/19 at 08:00; Stop 06/15/19 at 00:03; Status DC Dextrose (Dextrose 50%-Water Syringe) 12.5 gm PRN Q15MIN PRN IV SEE COMMENTS; Start 06/14/19 at 23:30 Insulin Human Lispro (HumaLOG) 0-7 UNITS Q4HRS SQ Last administered on 06/23/19at 08:05; Start 06/15/19 at 00:15 Calcium Gluconate 21379 mg/Sodium Chloride 494 ml @ 4.051 mls/ hr CONT PRN IV SYMPTOMATIC HYPOCALCEMIA; Start 06/15/19 at 09:30; Stop 06/15/19 at 09:23; Status DC Calcium Gluconate 5000 mg/Sodium Chloride 260 ml @ 5.543 mls/ hr CONT PRN IV SYMPTOMATIC HYPOCALCEMIA; Start 06/15/19 at 09:30; Stop 06/15/19 at 09:26; Status DC Calcium Gluconate 5000 mg/Sodium Chloride 260 ml @ 5.543 mls/ hr CONT PRN IV SYMPTOMATIC HYPOCALCEMIA; Start 06/15/19 at 09:30; Stop 06/15/19 at 09:29; Status DC Calcium Gluconate 5000 mg/Sodium Chloride 250 ml @ 28.782 mls/ hr CONT PRN IV SYMPTOMATIC HYPOCALCEMIA Last administered on 06/18/19at 06:12; Start 06/15/19 at 09:30; Stop 06/18/19 at 13:50; Status DC Lidocaine HCl (Lidocaine Pf 2% Vial) 5 ml STK-MED ONCE .ROUTE ; Start 06/14/19 at 12:00; Stop 06/17/19 at 10:37; Status DC Meropenem 500 mg/ Sodium Chloride 50 ml @ 100 mls/hr Q6HRS IV Last administered on 06/28/19at 00:39; Start 06/18/19 at 07:30 Nicardipine HCl 50 mg/Sodium Chloride 250 ml @ 25 mls/hr CONT PRN IV SEE I/O RECORD; Start 06/18/19 at 11:45 Metoprolol Tartrate (Lopressor Vial) 5 mg 1X ONCE IVP ; Start 06/18/19 at 12:15; Stop 06/18/19 at 12:16; Status DC Fentanyl Citrate (Fentanyl 600 Mcg/30 ml [employer]) 600 mcg STK-MED ONCE IV ; Start 06/15/19 at 05:30; Stop 06/18/19 at 12:07; Status DC Enoxaparin Sodium (Lovenox 40mg Syringe) 40 mg Q24H SQ Last administered on 06/21/19at 23:02; Start 06/18/19 at 22:30; Stop 06/22/19 at 11:07; Status DC Fentanyl Citrate 55 ml @ 1.98 mls/hr CONT PRN IV SEE PROTOCOL; Start 06/19/19 at 08:15; Status Cancel Info (Tpn Per Pharmacy) 1 each PRN DAILY PRN MC SEE COMMENTS Last administered on 06/27/19at 12:51; Start 06/19/19 at 11:15 Hydralazine HCl (Apresoline Inj) 10 mg PRN Q4HRS PRN IVP ELEVATED BP, 1st choice Last administered on 06/26/19at 15:43; Start 06/19/19 at 11:45 Labetalol HCl (Normodyne Iv Push) 20 mg PRN Q2HR PRN IVP HYPERTENSION, 2nd choice Last administered on 06/26/19at 14:44; Start 06/19/19 at 11:45 Potassium Phosphate 13.6 mmol/Magnesium Sulfate 10 meq/ Calcium Gluconate 20 meq/ Multivitamins 10 ml/Chromium/ Copper/Manganese/ Seleni/Zn 0.5 ml/ Total Parenteral Nutrition/Amino Acids/Dextrose/ Fat Emulsion Intravenous 1,920 ml @ 80 mls/hr TPN CONT IV Last administered on 06/19/19 21:31; Start 06/19/19 at 22:00; Stop 06/20/19 at 21:59; Status DC Fentanyl Citrate 30 ml @ 0 mls/hr CONT PRN IV SEE PROTOCOL Last administered on 06/24/19at 09:31; Start 06/19/19 at 18:00; Stop 06/24/19 at 11:38; Status DC Micafungin Sodium 100 mg/Dextrose 100 ml @ 100 mls/hr Q24H IV Last administered on 06/27/19at 08:29; Start 06/20/19 at 09:00 Potassium Phosphate 13.6 mmol/Calcium Gluconate 20 meq/ Multivitamins 10 ml/Chromium/ Copper/Manganese/ Seleni/Zn 0.5 ml/ Insulin Human Regular 10 unit/ Total Parenteral Nutrition/Amino Acids/Dextrose/ Fat Emulsion Intravenous 1,920 ml @ 80 mls/hr TPN CONT IV Last administered on 06/20/19at 21:57; Start 06/20/19 at 22:00; Stop 06/21/19 at 21:59; Status DC Insulin Glargine (Lantus Syringe) 15 unit QHS SQ Last administered on 06/20/19at 20:46; Start 06/20/19 at 21:00; Stop 06/21/19 at 12:32; Status DC Insulin Glargine (Lantus Syringe) 20 unit QHS SQ Last administered on 06/27/19at 20:39; Start 06/21/19 at 21:00 Potassium Phosphate 13.6 mmol/Calcium Gluconate 20 meq/ Multivitamins 10 ml/Chromium/ Copper/Manganese/ Seleni/Zn 0.5 ml/ Insulin Human Regular 10 unit/ Total Parenteral Nutrition/Amino Acids/Dextrose/ Fat Emulsion Intravenous 1,920 ml @ 80 mls/hr TPN CONT IV Last administered on 06/21/19at 21:31; Start 06/21/19 at 22:00; Stop 06/22/19 at 21:59; Status DC Dextrose 1,000 ml @ 75 mls/hr [id number] IV Last administered on 06/27/19at 01:32; Start 06/22/19 at 07:00; Stop 06/27/19 at 12:43; Status DC Albuterol Sulfate (Ventolin Neb Soln) 2.5 mg RTQID NEB Last administered on 06/28/19at 11:16; Start 06/22/19 at 08:00 Iohexol (Omnipaque 240 Mg/ml) 30 ml 1X ONCE PO ; Start 06/22/19 at 08:00; Stop 06/22/19 at 08:05; Status DC Iohexol (Omnipaque 300 Mg/ml) 75 ml 1X ONCE IV ; Start 06/22/19 at 08:00; Stop 06/22/19 at 08:01; Status Cancel Info (CONTRAST GIVEN -- Rx MONITORING) 1 each PRN DAILY PRN MC SEE COMMENTS; Start 06/22/19 at 08:15; Stop 06/24/19 at 08:14; Status DC Cefoxitin Sodium (Mefoxin) 2 gm 1X PREOP IVP ; Start 06/22/19 at 11:00; Stop 06/22/19 at 11:16; Status DC Cefoxitin Sodium (Mefoxin) 2 gm 1X PREOP ONCE IVP Last administered on 06/22/19at 11:37; Start 06/22/19 at 11:30; Stop 06/22/19 at 11:31; Status DC Rocuronium Woodruff (Zemuron) 50 mg STK-MED ONCE .ROUTE ; Start 06/22/19 at 11:42; Stop 06/22/19 at 11:42; Status DC Propofol 20 ml @ As Directed STK-MED ONCE IV ; Start 06/22/19 at 11:42; Stop 06/22/19 at 11:43; Status DC Dexamethasone Sodium Phosphate (Decadron) 4 mg STK-MED ONCE .ROUTE ; Start 06/22/19 at 11:45; Stop 06/22/19 at 11:45; Status DC Ondansetron HCl (Zofran) 4 mg STK-MED ONCE .ROUTE ; Start 06/22/19 at 11:45; Stop 06/22/19 at 11:45; Status DC Potassium Phosphate 13.6 mmol/Magnesium Sulfate 5 meq/ Calcium Gluconate 20 meq/ Multivitamins 10 ml/Chromium/ Copper/Manganese/ Seleni/Zn 0.5 ml/ Total Parenteral Nutrition/Amino Acids/Dextrose/ Fat Emulsion Intravenous 1,920 ml @ 80 mls/hr TPN CONT IV Last administered on 06/22/19at 22:14; Start 06/22/19 at 22:00; Stop 06/23/19 at 21:59; Status DC Rocuronium Woodruff (Zemuron) 100 mg STK-MED ONCE .ROUTE ; Start 06/22/19 at 13:05; Stop 06/22/19 at 13:06; Status DC Cellulose (Surgicel Hemostat 4x8) 1 each STK-MED ONCE .ROUTE Last administered on 06/22/19at 12:46; Start 06/22/19 at 13:14; Stop 06/22/19 at 13:14; Status DC Albumin Human 500 ml @ As Directed STK-MED ONCE IV ; Start 06/22/19 at 13:25; Stop 06/22/19 at 13:25; Status DC Sevoflurane (Ultane) 90 ml STK-MED ONCE IH ; Start 06/22/19 at 13:53; Stop 06/22/19 at 13:53; Status DC Cellulose (Surgicel Hemostat 4x8) 1 each STK-MED ONCE TP Last administered on 06/22/19at 12:46; Start 06/22/19 at 12:46; Stop 06/22/19 at 14:25; Status DC Cellulose (Surgicel Hemostat 4x8) 1 each STK-MED ONCE TP Last administered on 06/22/19at 12:46; Start 06/22/19 at 12:46; Stop 06/22/19 at 14:25; Status DC Rocuronium Woodruff (Zemuron) 50 mg STK-MED ONCE .ROUTE ; Start 06/22/19 at 14:52; Stop 06/22/19 at 14:52; Status DC Vecuronium Woodruff 50 mg/ Miscellaneous 50 ml @ 4.925 mls/ hr CONT PRN IV SEE PROTOCOL Last administered on 06/25/19at 05:19; Start 06/22/19 at 15:00 Enoxaparin Sodium (Lovenox 40mg Syringe) 40 mg Q24H SQ Last administered on 06/27/19at 05:50; Start 06/23/19 at 06:00 Sodium Chloride (Normal Saline Flush) 3 ml QSHIFT PRN IV AFTER MEDS AND BLOOD DRAWS; Start 06/22/19 at 15:45 Ringer's Solution 1,000 ml @ 100 mls/hr Q10H IV Last administered on 06/23/19at 22:06; Start 06/22/19 at 15:39; Stop 06/24/19 at 17:46; Status DC Naloxone HCl (Narcan) 0.4 mg PRN Q2MIN PRN IV SEE INSTRUCTIONS; Start 06/22/19 at 15:45 Sodium Chloride 1,000 ml @ 25 mls/hr Q24H IV Last administered on 06/26/19at 15:41; Start 06/22/19 at 15:39 Morphine Sulfate (Morphine Sulfate) 1 mg PRN Q1HR PRN IV MODERATE PAIN; Start 06/22/19 at 15:45 Ondansetron HCl (Zofran) 4 mg PRN Q6HRS PRN IVP NAUESA, 1ST CHOICE; Start 06/22/19 at 15:45 Calcium Gluconate (Calcium Gluconate) 1,000 mg 1X ONCE IVP ; Start 06/22/19 at 19:45; Stop 06/22/19 at 20:15; Status DC Sodium Bicarbonate (Sodium Bicarb Adult 8.4% Syr) 50 meq 1X ONCE IV Last administered on 06/22/19at 20:37; Start 06/22/19 at 19:45; Stop 06/22/19 at 19:57; Status DC Dextrose (Dextrose 50%-Water Syringe) 25 gm 1X ONCE IV Last administered on 06/22/19at 20:37; Start 06/22/19 at 19:45; Stop 06/22/19 at 19:57; Status DC Insulin Human Regular (HumuLIN R VIAL) 10 unit 1X ONCE IV Last administered on 06/22/19at 20:45; Start 06/22/19 at 19:45; Stop 06/22/19 at 19:57; Status DC Calcium Gluconate 1000 mg/Sodium Chloride 110 ml @ 220 mls/hr 1X ONCE IV Last administered on 06/22/19at 20:36; Start 06/22/19 at 20:15; Stop 06/22/19 at 20:44; Status DC Insulin Human Regular 100 unit/ Sodium Chloride 101 ml @ 0 mls/hr CONT PRN IV SEE I/O RECORD Last administered on 06/27/19at 04:43; Start 06/23/19 at 12:15 Sodium Phosphate 10 mmol/Magnesium Sulfate 5 meq/ Calcium Gluconate 15 meq/ Multivitamins 10 ml/Chromium/ Copper/Manganese/ Seleni/Zn 0.5 ml/ Insulin Human Regular 10 unit/ Total Parenteral Nutrition/Amino Acids/Dextrose/ Fat Emulsion Intravenous 1,920 ml @ 80 mls/hr TPN CONT IV Last administered on 06/23/19at 22:20; Start 06/23/19 at 22:00; Stop 06/24/19 at 21:59; Status DC Fentanyl Citrate 55 ml @ 1.98 mls/hr CONT PRN IV SEE PROTOCOL Last administered on 06/27/19at 09:47; Start 06/24/19 at 11:45 Sodium Phosphate 10 mmol/Magnesium Sulfate 5 meq/ Calcium Gluconate 15 meq/ Multivitamins 10 ml/Chromium/ Copper/Manganese/ Seleni/Zn 0.5 ml/ Total Parenteral Nutrition/Amino Acids/Dextrose/ Fat Emulsion Intravenous 1,920 ml @ 80 mls/hr TPN CONT IV Last administered on 06/24/19at 22:26; Start 06/24/19 at 22:00; Stop 06/25/19 at 21:59; Status DC Sodium Phosphate 10 mmol/Magnesium Sulfate 5 meq/ Calcium Gluconate 15 meq/ Multivitamins 10 ml/Chromium/ Copper/Manganese/ Seleni/Zn 0.5 ml/ Total Parenteral Nutrition/Amino Acids/Dextrose/ Fat Emulsion Intravenous 1,920 ml @ 80 mls/hr TPN CONT IV Last administered on 06/25/19at 22:27; Start 06/25/19 at 22:00; Stop 06/26/19 at 21:59; Status DC Sodium Phosphate 10 mmol/Magnesium Sulfate 5 meq/ Calcium Gluconate 15 meq/ Multivitamins 10 ml/Chromium/ Copper/Manganese/ Seleni/Zn 0.5 ml/ Total Parenteral Nutrition/Amino Acids/Dextrose/ Fat Emulsion Intravenous 1,920 ml @ 80 mls/hr TPN CONT IV Last administered on 06/26/19at 21:57; Start 06/26/19 at 22:00; Stop 06/27/19 at 21:59; Status DC Furosemide (Lasix) 60 mg 1X ONCE IVP Last administered on 06/26/19at 12:22; Start 06/26/19 at 12:30; Stop 06/26/19 at 12:31; Status DC Dexmedetomidine HCl 400 mcg/ Sodium Chloride 100 ml @ 0 mls/hr CONT PRN IV ANXIETY / AGITATION Last administered on 06/27/19at 21:12; Start 06/26/19 at 19:00 Sodium Chloride 500 ml @ 500 mls/hr 1X PRN PRN IV SEE COMMENTS; Start 06/26/19 at 19:00 Atropine Sulfate (ATROPINE 0.5mg SYRINGE) 0.5 mg PRN Q5MIN PRN IV SEE COMMENTS; Start 06/26/19 at 19:00 Sodium Bicarbonate (Sodium Bicarb Adult 8.4% Syr) 50 meq 1X ONCE IV ; Start 06/26/19 at 19:30; Stop 06/26/19 at 19:23; Status DC Furosemide (Lasix) 40 mg DAILY IVP Last administered on 06/27/19at 15:42; Start 06/27/19 at 12:00 Propofol 100 ml @ As Directed STK-MED ONCE IV ; Start 06/27/19 at 11:51; Stop 06/27/19 at 11:51; Status DC Propofol 100 ml @ 6.588 mls/ hr CONT PRN IV SEE I/O RECORD Last administered on 06/28/19at 11:32; Start 06/27/19 at 12:00 Sodium Phosphate 10 mmol/Magnesium Sulfate 5 meq/ Calcium Gluconate 15 meq/ Multivitamins 10 ml/Chromium/ Copper/Manganese/ Seleni/Zn 0.5 ml/ Total Parenteral Nutrition/Amino Acids/Dextrose/ Fat Emulsion Intravenous 1,920 ml @ 80 mls/hr TPN CONT IV ; Start 06/27/19 at 22:00; Stop 06/27/19 at 12:55; S tatus DC Potassium Phosphate 10 mmol/ Magnesium Sulfate 5 meq/Calcium Gluconate 15 meq/ Multivitamins 10 ml/Chromium/ Copper/Manganese/ Seleni/Zn 0.5 ml/ Total Parenteral Nutrition/Amino Acids/Dextrose/ Fat Emulsion Intravenous 1,920 ml @ 80 mls/hr TPN CONT IV Last administered on 06/27/19at 21:38; Start 06/27/19 at 22:00; Stop 06/28/19 at 21:59 Active Scripts Active Vitals/I & O Vital Sign - Last 24 Hours 06/27/19 06/27/19 06/27/19 06/27/19 14:00 15:00 15:46 16:00 Temp 99.7 99.7 99.7 99.7 Pulse 96 108 Resp 20 24 B/P (MAP) 104/51 (68) 105/62 (76) Pulse Ox 99 99 99 O2 Delivery Ventilator Ventilator Ventilator Mechanical Ventilator 06/27/19 06/27/19 06/27/19 06/27/19 16:00 17:00 18:00 18:25 Temp 100.4 101.5 101.0 100.4 101.5 101.0 Pulse 98 104 88 Resp 33 B/P (MAP) 126/73 (90) 106/70 (82) 182/94 (123) Pulse Ox 98 99 99 99 O2 Delivery Ventilator Ventilator Ventilator Ventilator 06/27/19 06/27/19 06/27/19 06/27/19 19:00 20:00 20:00 20:04 Temp 101.3 101.3 101.3 101.3 Pulse 99 93 Resp 33 28 B/P (MAP) 141/81 (101) 141/81 (101) Pulse Ox 98 98 98 O2 Delivery Ventilator Mechanical Ventilator Ventilator Ventilator 06/27/19 06/27/19 06/27/19 06/27/19 21:00 22:00 22:25 23:00 Temp 101.1 101.3 101.7 101.1 101.3 101.7 Pulse 93 97 99 Resp 28 B/P (MAP) 97/58 (71) 105/58 (74) 146/85 (105) Pulse Ox 98 98 98 98 O2 Delivery Ventilator Ventilator Ventilator Ventilator 06/28/19 06/28/19 06/28/19 06/28/19 00:00 00:00 00:53 07:00 Temp 101.7 99.9 101.7 99.9 Pulse 99 99 Resp 28 B/P (MAP) 101/54 (70) 101/54 (70) Pulse Ox 98 98 98 O2 Delivery Ventilator Mechanical Ventilator Ventilator Ventilator 06/28/19 06/28/19 06/28/19 06/28/19 08:00 08:00 08:20 09:00 Pulse 92 88 Resp 24 B/P (MAP) 122/80 (94) 113/67 (82) Pulse Ox 98 100 98 O2 Delivery Mechanical Ventilator Ventilator Ventilator Ventilator 06/28/19 06/28/19 06/28/19 06/28/19 10:00 11:00 11:17 12:00 Temp 99.9 99.9 Pulse 79 115 95 Resp 28 B/P (MAP) 79/49 (59) 94/62 (73) 116/72 (87) Pulse Ox 100 100 97 100 O2 Delivery Ventilator Ventilator Ventilator Ventilator 06/28/19 06/28/19 12:00 13:24 Pulse Ox 99 O2 Delivery Mechanical Ventilator Ventilator Intake and Output 06/27/19 06/27/19 06/28/19 15:00 23:00 07:00 Intake Total 450 ml 2165 ml Output Total 1150 ml 2530 ml 100 ml Balance -700 ml -365 ml -100 ml Hemodynamically unstable?: No Is patient in severe pain?: Yes Is NPO status required?: Yes MARIA L TAYLOR MD Jun 28, 2019 13:36
[2019-06-28] MEDS: TPN PER PHARMACY MC PRN (14:25)
--- NOTE | 2019-06-28 14:25 | NUR ---
Pharmacy TPN Dosing Note S: CHRISTOPHER NEWSOME is a 49 year old M Currently receiving Central Continuous TPN started 06/19/19 B:Pertinent PMH: PANCREATITIS Height: 5 feet, 9 inches Weight: 109.631900 kg Current diet: NPO LABS: Sodium: 147 Potassium: 3.4 Chloride: 108 Calcium: 7.9 Corrected Calcium: 10.06 Magnesium: 2 CO2: 29 SCr: 1.3 Glucose: 114-166 Albumin: 1.3 AST: 55 ALT: 49 TPN FORMULA: TPN TYPE: Central Continuous AMINO ACIDS: 145 gm DEXTROSE: 200 gm LIPIDS: 20 gm SODIUM PHOSPHATE: 10 mmol POTASSIUM ACETATE: 20 mEq MAGNESIUM: 5 mEq CALCIUM: 15 mEq MULTIPLE VITAMIN: 10 ml TRACE ELEMENTS: MTE 5 0.5 ml(s) TPN PLAN: Na stable. Cont to omit from TPN. K dropped from 4 to 3.4. Will replace with KCl 20 meq IVPB x 1 dose and add KAce 20 meq to the TPN. -BMP in AM. R: Change TPN as noted above. Will monitor electrolytes, glucose, and tolerance to TPN. JULIA SALGADO [facility] [place], 06/28/19 [id number]
[2019-06-28] MEDS ORDERED: POTASSIUM CHLORIDE 20MEQ 100 ML IV ONE (15:00)
[2019-06-28] MEDS: IV NORMAL SALINE 1000ML BAG 1,000 ML IV SCH (15:39)
[2019-06-28] MEDS: PANTOPRAZOLE IV PUSH 40 MG VIAL. IVP SCH (18:00)
--- NOTE | 2019-06-28 18:10 | NUR ---
SEE DOWNTIME CHARTING FOR MEDICATION DOCUMENTATION
[2019-06-28] MEDS: DEXMEDETOMIDINE 400 MCG in IV NORMAL SALINE 100ML 96 ML IV PRN (20:38)
[2019-06-28] MEDS: INSULIN GLARGINE SYRINGE. SQ SCH (20:38)
[2019-06-28] MEDS ORDERED: [UNRECOGNIZED DRUG - OTHER] IV SCH ×9 (22:00)
[2019-06-28] MEDS ORDERED: AMINO ACID IV SCH ×9 (22:00)
[2019-06-28] MEDS ORDERED: TOTAL PARENTERAL NUTRITION IV SCH ×9 (22:00)
[2019-06-28] MEDS ORDERED: DEXTROSE 70% IV SCH ×9 (22:00)
[2019-06-28] MEDS: ACETAMINOPHEN 650 MG SUPP.RECT. PR PRN (23:38)
[2019-06-28] MEDS: fentaNYL HIGH DOSE PCA 55 ML IV PRN (23:39)
[2019-06-29] VITALS (23 sets, daily range): BP systolic 82–152; BP diastolic 44–73
[2019-06-29] MEDS: PROPOFOL 100 ML IV PRN ×5 (03:08→23:39)
[2019-06-29] MEDS: INSULIN LISPRO 300 UNITS/3 ML VIAL. SQ SCH ×7 (04:00→23:41)
[2019-06-29] MEDS: DEXMEDETOMIDINE 400 MCG in IV NORMAL SALINE 100ML 96 ML IV PRN ×5 (05:16→21:32)
[2019-06-29] MEDS: ENOXAPARIN 40 MG/0.4 ML SYRINGE. SQ SCH (05:55)
[2019-06-29] MEDS: PANTOPRAZOLE IV PUSH 40 MG VIAL. IVP SCH ×2 (05:56→17:57)
[2019-06-29] MEDS: MEROPENEM 500 MG in IV NORMAL SALINE 50ML 50 ML IV SCH ×4 (05:56→23:40)
[2019-06-29 06:45] LABS: CALCIUM 7.4 mg/dL (8.5-10.1); CREATININE 1.3 mg/dL (0.7-1.3); POTASSIUM 3.4 mmol/L (3.5-5.1)
[2019-06-29] MEDS: HYDROmorphone 2 MG/ML VIAL IV PRN (07:35)
[2019-06-29] MEDS: ALBUTEROL SULFATE 2.5 MG/3 ML NEBU. NEB SCH ×4 (08:07→20:10)
--- NOTE | 2019-06-29 08:26 | PDOC ---
Infectious Disease Note Subjective Subjective Sedated, trach/vent FiO2 40% TPN Fevers Tmax 101.8 No BM ROS ROS unobtainable Vital Sign Vital Signs Vital Signs Date Time Temp Pulse Resp B/P (MAP) Pulse Ox O2 Delivery O2 Flow Rate FiO2 06/29/19 07:35 100 06/29/19 07:31 Ventilator 06/29/19 06:00 99.9 78 27 87/48 (61) 99.9 Physical Exam PHYSICAL EXAM GENERAL: Sedated, trached/vent HEENT: Pupils equal, OGT, NECK: Trach/vent LUNGS: Diminished aeration bases HEART: S1, S2, regular, no murmurs. ABDOMEN: Distended, fairly tight, bowel sounds present. drains x 4, wound vac in place : [place] EXTREMITIES: Trace edema, no cyanosis. SCDs bilaterally SKIN: Warm, dry. 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 CHIEF LEGAL OFFICER: Sedated RIJ & RIJ/HD catheter (06/19) Labs Lab Laboratory Tests Test 06/28/19 08:19 06/28/19 08:30 06/28/19 10:13 06/28/19 13:01 Glucose (Fingerstick) 142 mg/dL (70-99) 152 mg/dL (70-99) 166 mg/dL (70-99) O2 Saturation 96 % (92-99) Arterial Blood pH 7.45 (7.35-7.45) Arterial Blood pCO2 at Patient Temp 37 mmHg (35-46) Arterial Blood pO2 at Patient Temp 85 mmHg (75-108) Arterial Blood HCO3 25 mmol/L (21-28) Arterial Blood Base Excess 1 mmol/L (-3-3) FiO2 40 Test 06/28/19 16:18 06/28/19 17:48 06/28/19 19:15 06/28/19 21:58 Glucose (Fingerstick) 166 mg/dL (70-99) 142 mg/dL (70-99) 124 mg/dL (70-99) 165 mg/dL (70-99) Test 06/28/19 23:44 06/29/19 03:02 06/29/19 06:00 06/29/19 06:09 Glucose (Fingerstick) 119 mg/dL (70-99) 94 mg/dL (70-99) 124 mg/dL (70-99) Sodium Level 145 mmol/L (136-145) Potassium Level 3.4 mmol/L (3.5-5.1) Chloride Level 108 mmol/L (98-107) Carbon Dioxide Level 30 mmol/L (21-32) Anion Gap 7 (6-14) Blood Urea Nitrogen 71 mg/dL (8-26) Creatinine 1.3 mg/dL (0.7-1.3) Estimated GFR (Cockcroft-Gault) 71.0 Glucose Level 123 mg/dL (70-99) Calcium Level 7.4 mg/dL (8.5-10.1) Micro 06/25. BLOOD CULTURE Preliminary NO GROWTH AFTER 2 DAYS Objective Assessment Fever - Leukocytosis Gallbladder stone pancreatitis s/p expl lap, pancreatic necrosectomy, cholecystostomy tube placement, G-tube placement with jejunal extension, 06/21 Loculated fluid collection along the anterior aspect of the pancreas measures 3.0 x 2.6 cm and fluid collection along the inferior aspect of the stomach measures 9.6 x 4.0 cm, on CT 06/21 Sepsis from GI - cult neg Acute Resp failure - s/p trach 06/21 Lactic acidosis. Acute kidney injury previously requiring dialysis - now with improved UOP, HDC (06/13) still in place Metabolic acidosis. Hypocalcemia Plan Plan of Care Continue merrem, micafungin (06/19) and Zyvox( ) BC neg to date Maintain aspiration precaution. CBC May need re-imaging D/w nursing Critically ill Patient seen and examined. Chart reviewed in detail. Case discussed with ETL DATA ARCHITECT agree with above plan. Patients case also reviewed in the same manner 06/28/2019- No computer access on that date TANVI GORE APRN Jun 29, 2019 08:26 HORTENCIA DE LA TORRE MD Jun 29, 2019 21:37
[2019-06-29 08:51] LABS: BASE EXCESS ABG 3 mmol/L (-3-3); HCO3 ABG 28 mmol/L (21-28); PCO2 ABG 41 mmHg (35-46); PO2 ABG 88 mmHg (75-108); SAT O2 ABG 96 % (92-99)
[2019-06-29 08:55] LABS: FIO2 ABG 40
[2019-06-29] MEDS: CHLORHEXIDINE 0.12% 15 ML MOUTHWASH. MM SCH ×2 (08:56→20:31)
[2019-06-29] MEDS: FUROSEMIDE 40 MG/4 ML VIAL. IVP SCH (08:56)
[2019-06-29] MEDS: MICAFUNGIN 100 MG in IV DEXTROSE 5% 100ML 100 ML IV SCH (08:57)
[2019-06-29] MEDS ORDERED: POTASSIUM CHLORIDE 20MEQ 100 ML IV ONE (09:00)
[2019-06-29 09:48] LABS: BASO # 0.1 x10^3/uL (0.0-0.2); BASO % 1 % (0-3); EOS % 0 % (0-3); HEMATOCRIT 24.7 % (39.0-53.0); HEMOGLOBIN 8.1 g/dL (13.0-17.5); LYMPH # 1.2 x10^3/uL (1.0-4.8); LYMPH % 8 % (24-48); MEAN CORPUSCULAR HEMOGLOBIN 29 pg (25-35); MEAN CORPUSCULAR HGB CONC 33 g/dL (31-37); MEAN CORPUSCULAR VOLUME 89 fL (79-100); MONO # 1.6 x10^3/uL (0.0-1.1); MONO % 11 % (0-9); NEUT # 12.5 x10^3/uL (1.8-7.7); NEUT % 81 % (31-73); PLATELET COUNT 302 x10^3/uL (140-400); RED BLOOD COUNT 2.78 x10^6/uL (4.30-5.70); RED CELL DISTRIBUTION WIDTH 14.4 % (11.5-14.5); WHITE BLOOD COUNT 15.5 x10^3/uL (4.0-11.0)
--- NOTE | 2019-06-29 10:03 | PDOC ---
PULMONARY PROGRESS NOTES Subjective on vent, sedated, trach 06/21, on precedex, fentanyl, propofol, gets very agitated w decreasing sedation, small trach secretion, tm 101.8 Vitals Vital Signs Date Time Temp Pulse Resp B/P (MAP) Pulse Ox O2 Delivery O2 Flow Rate FiO2 06/29/19 09:09 97 Ventilator 06/29/19 09:00 78 20 96/51 (66) 06/29/19 08:00 100.0 100.0 Comments ros unable to obtain on vent, sedated HEENT: Other (nc at perrl nose clear, neck, trach site ok, no lad, no thyromegaly) Lungs: Crackles Cardiovascular: S1, S2 Abdomen: Other (/distended/firm ) Extremities: No Edema Skin: Warm Labs Laboratory Tests Test 06/27/19 11:13 06/27/19 12:41 06/27/19 14:04 06/27/19 16:22 Glucose (Fingerstick) 158 mg/dL (70-99) 164 mg/dL (70-99) 147 mg/dL (70-99) 114 mg/dL (70-99) Test 06/27/19 19:34 06/27/19 22:19 06/28/19 00:28 06/28/19 03:18 Glucose (Fingerstick) 103 mg/dL (70-99) 140 mg/dL (70-99) 142 mg/dL (70-99) 98 mg/dL (70-99) Test 06/28/19 06:00 06/28/19 08:00 06/28/19 08:19 06/28/19 08:30 Glucose (Fingerstick) 138 mg/dL (70-99) 142 mg/dL (70-99) Sodium Level 147 mmol/L (136-145) Potassium Level 3.4 mmol/L (3.5-5.1) Chloride Level 108 mmol/L (98-107) Carbon Dioxide Level 29 mmol/L (21-32) Anion Gap 10 (6-14) Blood Urea Nitrogen 68 mg/dL (8-26) Creatinine 1.3 mg/dL (0.7-1.3) Estimated GFR (Cockcroft-Gault) 71.0 Glucose Level 114 mg/dL (70-99) Calcium Level 7.9 mg/dL (8.5-10.1) Magnesium Level 2.0 mg/dL (1.8-2.4) O2 Saturation 96 % (92-99) Arterial Blood pH 7.45 (7.35-7.45) Arterial Blood pCO2 at Patient Temp 37 mmHg (35-46) Arterial Blood pO2 at Patient Temp 85 mmHg (75-108) Arterial Blood HCO3 25 mmol/L (21-28) Arterial Blood Base Excess 1 mmol/L (-3-3) FiO2 40 Test 06/28/19 10:13 06/28/19 13:01 06/28/19 16:18 06/28/19 17:48 Glucose (Fingerstick) 152 mg/dL (70-99) 166 mg/dL (70-99) 166 mg/dL (70-99) 142 mg/dL (70-99) Test 06/28/19 19:15 06/28/19 21:58 06/28/19 23:44 06/29/19 03:02 Glucose (Fingerstick) 124 mg/dL (70-99) 165 mg/dL (70-99) 119 mg/dL (70-99) 94 mg/dL (70-99) Test 06/29/19 06:00 06/29/19 06:09 06/29/19 08:07 Sodium Level 145 mmol/L (136-145) Potassium Level 3.4 mmol/L (3.5-5.1) Chloride Level 108 mmol/L (98-107) Carbon Dioxide Level 30 mmol/L (21-32) Anion Gap 7 (6-14) Blood Urea Nitrogen 71 mg/dL (8-26) Creatinine 1.3 mg/dL (0.7-1.3) Estimated GFR (Cockcroft-Gault) 71.0 Glucose Level 123 mg/dL (70-99) Calcium Level 7.4 mg/dL (8.5-10.1) Glucose (Fingerstick) 124 mg/dL (70-99) O2 Saturation 96 % (92-99) Arterial Blood pH 7.44 (7.35-7.45) Arterial Blood pCO2 at Patient Temp 41 mmHg (35-46) Arterial Blood pO2 at Patient Temp 88 mmHg (75-108) Arterial Blood HCO3 28 mmol/L (21-28) Arterial Blood Base Excess 3 mmol/L (-3-3) FiO2 40 Laboratory Tests Test 06/28/19 10:13 06/28/19 13:01 06/28/19 16:18 06/28/19 17:48 Glucose (Fingerstick) 152 mg/dL (70-99) 166 mg/dL (70-99) 166 mg/dL (70-99) 142 mg/dL (70-99) Test 06/28/19 19:15 06/28/19 21:58 06/28/19 23:44 06/29/19 03:02 Glucose (Fingerstick) 124 mg/dL (70-99) 165 mg/dL (70-99) 119 mg/dL (70-99) 94 mg/dL (70-99) Test 06/29/19 06:00 06/29/19 06:09 06/29/19 08:07 Sodium Level 145 mmol/L (136-145) Potassium Level 3.4 mmol/L (3.5-5.1) Chloride Level 108 mmol/L (98-107) Carbon Dioxide Level 30 mmol/L (21-32) Anion Gap 7 (6-14) Blood Urea Nitrogen 71 mg/dL (8-26) Creatinine 1.3 mg/dL (0.7-1.3) Estimated GFR (Cockcroft-Gault) 71.0 Glucose Level 123 mg/dL (70-99) Calcium Level 7.4 mg/dL (8.5-10.1) Glucose (Fingerstick) 124 mg/dL (70-99) O2 Saturation 96 % (92-99) Arterial Blood pH 7.44 (7.35-7.45) Arterial Blood pCO2 at Patient Temp 41 mmHg (35-46) Arterial Blood pO2 at Patient Temp 88 mmHg (75-108) Arterial Blood HCO3 28 mmol/L (21-28) Arterial Blood Base Excess 3 mmol/L (-3-3) FiO2 40 Medications Active Scripts Medications Dose Route/Sig Max Daily Dose Days Date Category Comments CXR reviewed l minimal atelectasis, effusion ct abdomen 06/21 report reviewed Impression . IMPRESSION: 1. Acute hypoxemic respiratory failure, multifactorial. 2. Acute gallstone pancreatitis./ Necrosis. s/p Exploratory laparotomy, pancreatic necrosectomy, cholecystostomy tube placement, Gastrostomy placement with jejunal extension, tracheostomy placement (specifically 8 shiley cuffed) 06/21 3. Acute kidney failure. improving 4. Metabolic toxic encephalopathy. 5. Hyperkalemia.corrected 6. Metabolic / respiratory acidosis 7. Hypocalcemia. 8. POSSIBLE ABD COMPARTMENT SYNDROME , s/p Exp lap 9. HEP B S POSITIVE 10. Hypernatremia, resolved 11. LLL small effusion, monitor Plan . cont vent support, setting reviewed, weaning as tolerated PRN suctioning, BD Pain control: avoid oversedation cxr in am ABX per ID, Continue merrem, micafungin (06/19) and Zyvox( ) BC neg to date ct abdomen report reviewed 06/21. Follow surgery recs elevate hob TPN per surgery D/W RN/RT CHRIS TINOCO MD Jun 29, 2019 10:03
--- NOTE | 2019-06-29 10:17 | PDOC ---
SURGICAL PROGRESS NOTE Subjective Patient ventilated and sedated Vital Signs Vital Signs Date Time Temp Pulse Resp B/P (MAP) Pulse Ox O2 Delivery O2 Flow Rate FiO2 06/29/19 09:09 97 Ventilator 06/29/19 09:00 78 20 96/51 (66) 06/29/19 08:00 100.0 100.0 I&O Intake and Output 06/29/19 07:00 Intake Total 1314 ml Output Total 4520 ml Balance -3206 ml IV Total 1314 ml Output Urine Total 3510 ml Gastric Drainage Total 150 ml Drainage Total 860 ml PATIENT HAS A LEPE: Yes Abdomen: Soft, No tenderness Labs Laboratory Tests Test 06/27/19 11:13 06/27/19 12:41 06/27/19 14:04 06/27/19 16:22 Glucose (Fingerstick) 158 mg/dL (70-99) 164 mg/dL (70-99) 147 mg/dL (70-99) 114 mg/dL (70-99) Test 06/27/19 19:34 06/27/19 22:19 06/28/19 00:28 06/28/19 03:18 Glucose (Fingerstick) 103 mg/dL (70-99) 140 mg/dL (70-99) 142 mg/dL (70-99) 98 mg/dL (70-99) Test 06/28/19 06:00 06/28/19 08:00 06/28/19 08:19 06/28/19 08:30 Glucose (Fingerstick) 138 mg/dL (70-99) 142 mg/dL (70-99) Sodium Level 147 mmol/L (136-145) Potassium Level 3.4 mmol/L (3.5-5.1) Chloride Level 108 mmol/L (98-107) Carbon Dioxide Level 29 mmol/L (21-32) Anion Gap 10 (6-14) Blood Urea Nitrogen 68 mg/dL (8-26) Creatinine 1.3 mg/dL (0.7-1.3) Estimated GFR (Cockcroft-Gault) 71.0 Glucose Level 114 mg/dL (70-99) Calcium Level 7.9 mg/dL (8.5-10.1) Magnesium Level 2.0 mg/dL (1.8-2.4) O2 Saturation 96 % (92-99) Arterial Blood pH 7.45 (7.35-7.45) Arterial Blood pCO2 at Patient Temp 37 mmHg (35-46) Arterial Blood pO2 at Patient Temp 85 mmHg (75-108) Arterial Blood HCO3 25 mmol/L (21-28) Arterial Blood Base Excess 1 mmol/L (-3-3) FiO2 40 Test 06/28/19 10:13 06/28/19 13:01 06/28/19 16:18 06/28/19 17:48 Glucose (Fingerstick) 152 mg/dL (70-99) 166 mg/dL (70-99) 166 mg/dL (70-99) 142 mg/dL (70-99) Test 06/28/19 19:15 06/28/19 21:58 06/28/19 23:44 06/29/19 03:02 Glucose (Fingerstick) 124 mg/dL (70-99) 165 mg/dL (70-99) 119 mg/dL (70-99) 94 mg/dL (70-99) Test 06/29/19 06:00 06/29/19 06:09 06/29/19 08:07 Sodium Level 145 mmol/L (136-145) Potassium Level 3.4 mmol/L (3.5-5.1) Chloride Level 108 mmol/L (98-107) Carbon Dioxide Level 30 mmol/L (21-32) Anion Gap 7 (6-14) Blood Urea Nitrogen 71 mg/dL (8-26) Creatinine 1.3 mg/dL (0.7-1.3) Estimated GFR (Cockcroft-Gault) 71.0 Glucose Level 123 mg/dL (70-99) Calcium Level 7.4 mg/dL (8.5-10.1) Glucose (Fingerstick) 124 mg/dL (70-99) O2 Saturation 96 % (92-99) Arterial Blood pH 7.44 (7.35-7.45) Arterial Blood pCO2 at Patient Temp 41 mmHg (35-46) Arterial Blood pO2 at Patient Temp 88 mmHg (75-108) Arterial Blood HCO3 28 mmol/L (21-28) Arterial Blood Base Excess 3 mmol/L (-3-3) FiO2 40 Laboratory Tests Test 06/28/19 13:01 06/28/19 16:18 06/28/19 17:48 06/28/19 19:15 Glucose (Fingerstick) 166 mg/dL (70-99) 166 mg/dL (70-99) 142 mg/dL (70-99) 124 mg/dL (70-99) Test 06/28/19 21:58 06/28/19 23:44 06/29/19 03:02 06/29/19 06:00 Glucose (Fingerstick) 165 mg/dL (70-99) 119 mg/dL (70-99) 94 mg/dL (70-99) Sodium Level 145 mmol/L (136-145) Potassium Level 3.4 mmol/L (3.5-5.1) Chloride Level 108 mmol/L (98-107) Carbon Dioxide Level 30 mmol/L (21-32) Anion Gap 7 (6-14) Blood Urea Nitrogen 71 mg/dL (8-26) Creatinine 1.3 mg/dL (0.7-1.3) Estimated GFR (Cockcroft-Gault) 71.0 Glucose Level 123 mg/dL (70-99) Calcium Level 7.4 mg/dL (8.5-10.1) Test 06/29/19 06:09 06/29/19 08:07 Glucose (Fingerstick) 124 mg/dL (70-99) O2 Saturation 96 % (92-99) Arterial Blood pH 7.44 (7.35-7.45) Arterial Blood pCO2 at Patient Temp 41 mmHg (35-46) Arterial Blood pO2 at Patient Temp 88 mmHg (75-108) Arterial Blood HCO3 28 mmol/L (21-28) Arterial Blood Base Excess 3 mmol/L (-3-3) FiO2 40 Problem List Problems Medical Problems: (1) Acute pancreatitis Status: Acute (2) Nausea & vomiting Status: Acute Assessment/Plan Pancreatitis no acute changes continue supportive care JERSON NIELSEN MD Jun 29, 2019 10:17
[2019-06-29] MEDS: TPN PER PHARMACY MC PRN (11:06)
--- NOTE | 2019-06-29 11:06 | NUR ---
Pharmacy TPN Dosing Note S: CHRISTOPHER NEWSOME is a 49 year old M Currently receiving Central Continuous TPN started 06/19/19 B:Pertinent PMH: PANCREATITIS Height: 5 feet, 9 inches Weight: 113.2 kg Current diet: NPO LABS: Sodium: 145 Potassium: 3.4 Chloride: 108 Calcium: 7.4 Corrected Calcium: 9.56 Magnesium: 2 CO2: 30 SCr: 1.3 Glucose: 94-124 Albumin: 1.3 AST: 55 ALT: 49 TPN FORMULA: TPN TYPE: Central Continuous AMINO ACIDS: 145 gm DEXTROSE: 200 gm LIPIDS: 20 gm SODIUM PHOSPHATE: 10 mmol POTASSIUM ACETATE: 20 mEq MAGNESIUM: 5 mEq CALCIUM: 15 mEq MULTIPLE VITAMIN: 10 ml TRACE ELEMENTS: MTE 5 0.5 ml(s) TPN PLAN: K 3.4 again today. Replace with KCl 20 meq IVPB x 1 dose. Will hold on increasing K in the TPN as the total effects of this bag have not been seen. Na has normalized. Will continue same TPN as yesterday. -BMP, Mag, Phos and TG labs in AM. R: Continue TPN as yesterday. Will monitor electrolytes, glucose, and tolerance to TPN. JULIA SALGADO [facility], 06/29/19 1105
[2019-06-29 11:50] LABS: BILIRUBIN,URINE SMALL (NEG); CLARITY,URINE CLEAR; COLOR,URINE AMBER; NITRITE,URINE NEGATIVE (NEG); PROTEIN,URINE NEGATIVE (NEG-TRACE); UROBILINOGEN,URINE 0.2 mg/dL (0.2 mg/dL)
[2019-06-29 12:24] LABS: HYALINE CASTS, URINE MODERATE /HPF; SQUAMOUS EPITHELIAL CELL,UR FEW /LPF
[2019-06-29 12:25] LABS: AMORPHOUS SEDIMENT,UR PRESENT /HPF; BACTERIA,URINE 0 /HPF (0-FEW)
--- NOTE | 2019-06-29 13:53 | PDOC ---
[employer] PROGRESS NOTE Chief Complaint Chief Complaint Acute hypoxemic respiratory failure, multifactorial. Status post tracheostomy 5 drains Acute gallstone pancreatitis./ Necrosis Acute kidney failure. improving Metabolic toxic encephalopathy. Hyperkalemia.corrected Metabolic / respiratory acidosis Hypocalcemia. Hepatitis B Hypernatremia LLL small effusion, monitor Exploratory laparotomy, pancreatic necrosectomy, cholecystostomy tube placement, Gastrostomy placement with jejunal extension, tracheostomy placement (specifically 8 shiley cuffed) Specimans Obtained: pancreatic necrosis, saponification, gallstones Findings: diffuse peritonitis, 1.5 liters of ascites, diffuse saponification, viable viscera, mulitiple gallstones, normal liver History of Present Illness History of Present Illness [id number] Patient seen and examined in the ICU He remains on the vent with assist control/20/500/40% FiO2 Discussed with RN Chart reviewed He is still critically ill [id number] Patient seen and examined in the ICU He remains critically ill intubated Vent: ac/ 20 /500/ 40% Chart reviewed Discussed with RN [id number] Patient seen and examined in the ICU He remains intubated Dr. Mcbride is here with me Discussed with RN Discussed with patient's brother Chart reviewed Patient remains mechanically intubated and sedated Extremely critically ill [id number] Patient seen and examined in the ICU He remains intubated and now on multiple drips Vent settings as follows assist-control/18/500/40% Discussed with RN Discussed with Dr. Smyth Chart reviewed He is critically ill [id number] Patient seen and examined in the ICU He is on the ventilator and sedated and paralyzed Discussed with RN Discussed with his Chart reviewed Exploratory laparotomy, pancreatic necrosectomy, cholecystostomy tube placement, Gastrostomy placement with jejunal extension, tracheostomy placement (spe cifically 8 shiley cuffed) 06/24/2019 Pt seen and examined in the ICU. Discussed with RN, Chart reviewed. Pt was sedated and currently being tried on room air. Ventilator setting as follows: AC/18/500/40% with peep of 5, but not in use during observation. Currently has [address] Vitals/I&O Vitals/I&O: Vital Signs Date Time Temp Pulse Resp B/P (MAP) Pulse Ox O2 Delivery O2 Flow Rate FiO2 06/29/19 13:35 99 Ventilator 3/15/20 13:00 98.8 78 20 85/47 (60) 98.8 I & O 06/28/19 06/28/19 06/29/19 15:00 23:00 07:00 Intake Total 1314 ml Output Total 1400 ml 1325 ml 1795 ml Balance -1400 ml -1325 ml -481 ml Physical Exam Physical Exam: GENERAL: Sedated, trached/vent HEENT: Pupils equal, OGT, NECK: Trach/vent LUNGS: Diminished aeration bases HEART: S1, S2, regular, no murmurs. ABDOMEN: Distended, fairly tight, bowel sounds present. drains x 4, wound vac in place : [place] EXTREMITIES: Trace edema, no cyanosis. SCDs bilaterally SKIN: Warm, dry. 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) General: Other (SEDATED) Heart: Regular rate, Normal S1, Normal S2, No murmurs, Gallops Lungs: Crackles Abdomen: Soft, No tenderness Extremities: No clubbing, No cyanosis, No edema, Normal pulses, No tenderness/swelling Skin: No significant lesion Labs Labs: Laboratory Tests Test 06/28/19 16:18 06/28/19 17:48 06/28/19 19:15 06/28/19 21:58 Glucose (Fingerstick) 166 mg/dL (70-99) 142 mg/dL (70-99) 124 mg/dL (70-99) 165 mg/dL (70-99) Test 06/28/19 23:44 06/29/19 03:02 06/29/19 06:00 06/29/19 06:09 Glucose (Fingerstick) 119 mg/dL (70-99) 94 mg/dL (70-99) 124 mg/dL (70-99) White Blood Count 15.5 x10^3/uL (4.0-11.0) Red Blood Count 2.78 x10^6/uL (4.30-5.70) Hemoglobin 8.1 g/dL (13.0-17.5) Hematocrit 24.7 % (39.0-53.0) Mean Corpuscular Volume 89 fL (79-100) Mean Corpuscular Hemoglobin 29 pg (25-35) Mean Corpuscular Hemoglobin Concent 33 g/dL (31-37) Red Cell Distribution Width 14.4 % (11.5-14.5) Platelet Count 302 x10^3/uL (140-400) Neutrophils (%) (Auto) 81 % (31-73) Lymphocytes (%) (Auto) 8 % (24-48) Monocytes (%) (Auto) 11 % (0-9) Eosinophils (%) (Auto) 0 % (0-3) Basophils (%) (Auto) 1 % (0-3) Neutrophils # (Auto) 12.5 x10^3/uL (1.8-7.7) Lymphocytes # (Auto) 1.2 x10^3/uL (1.0-4.8) Monocytes # (Auto) 1.6 x10^3/uL (0.0-1.1) Eosinophils # (Auto) 0.0 x10^3/uL (0.0-0.7) Basophils # (Auto) 0.1 x10^3/uL (0.0-0.2) Sodium Level 145 mmol/L (136-145) Potassium Level 3.4 mmol/L (3.5-5.1) Chloride Level 108 mmol/L (98-107) Carbon Dioxide Level 30 mmol/L (21-32) Anion Gap 7 (6-14) Blood Urea Nitrogen 71 mg/dL (8-26) Creatinine 1.3 mg/dL (0.7-1.3) Estimated GFR (Cockcroft-Gault) 71.0 Glucose Level 123 mg/dL (70-99) Calcium Level 7.4 mg/dL (8.5-10.1) Test 06/29/19 08:07 06/29/19 11:10 06/29/19 11:21 06/29/19 13:23 O2 Saturation 96 % (92-99) Arterial Blood pH 7.44 (7.35-7.45) Arterial Blood pCO2 at Patient Temp 41 mmHg (35-46) Arterial Blood pO2 at Patient Temp 88 mmHg (75-108) Arterial Blood HCO3 28 mmol/L (21-28) Arterial Blood Base Excess 3 mmol/L (-3-3) FiO2 40 Urine Collection Type Unknown Urine Color Demi Urine Clarity Clear Urine pH 6.0 (<5.0-8.0) Urine Specific [place] 1.015 (1.000-1.030) Urine Protein Negative mg/dL (NEG-TRACE) Urine Glucose (UA) Negative mg/dL (NEG) Urine Ketones (Stick) Negative mg/dL (NEG) Urine Blood Negative (NEG) Urine Nitrite Negative (NEG) Urine Bilirubin Small (NEG) Urine Urobilinogen Dipstick 0.2 mg/dL (0.2 mg/dL) Urine Leukocyte Esterase Negative (NEG) Urine RBC 1-2 /HPF (0-2) Urine WBC 1-4 /HPF (0-4) Urine Squamous Epithelial Cells Few /LPF Urine Amorphous Sediment Present /HPF Urine Bacteria 0 /HPF (0-FEW) Urine Hyaline Casts Moderate /HPF Urine Mucus Mod /LPF Glucose (Fingerstick) 207 mg/dL (70-99) 195 mg/dL (70-99) Review of Systems Review of Systems: Unable to obtain Assessment and Plan Assessmemt and Plan Problems Medical Problems: (1) Acute pancreatitis Status: Acute (2) Nausea & vomiting Status: Acute Acute hypoxemic respiratory failure, multifactorial. Status post tracheostomy 5 drains Acute gallstone pancreatitis./ Necrosis Acute kidney failure. improving Metabolic toxic encephalopathy. Hyperkalemia.corrected Metabolic / respiratory acidosis Hypocalcemia. Hepatitis B Hypernatremia LLL small effusion, monitor Exploratory laparotomy, pancreatic necrosectomy, cholecystostomy tube placement, Gastrostomy placement with jejunal extension, tracheostomy placement (specifically 8 shiley cuffed) Plan: Continue ICU monitoring Continue to monitor intraabdominal pressures DVT prophylaxis appreciate GI consult Vent weaning IV antibiotics IV paralytics and IV sedatives Trend labs Wound care We are managing 5 drains He remains critically ill Prognosis extremely guarded at best Total time 32 minutes Comment Review of Relevant I have reviewed the following items alexandra (where applicable) has been applied. Medications: Current Medications Medications (Trade) Dose Ordered Sig/Jesse Route PRN Reason Start Time Stop Time Status Last Admin Dose Admin Potassium Chloride/Water 100 ml @ 50 mls/hr 1X ONCE IV 06/28/19 15:00 06/28/19 16:59 DC 06/28/19 15:00 Potassium Phosphate 10 mmol/ Magnesium Sulfate 5 meq/Calcium Gluconate 15 meq/ Multivitamins 10 ml/Chromium/ Copper/Manganese/ Seleni/Zn 0.5 ml/ Potassium Acetate 20 meq/Total Parenteral Nutrition/Amino Acids/Dextrose/ Fat Emulsion Intravenous 1,920 ml @ 80 mls/hr TPN CONT IV 06/28/19 22:00 06/29/19 21:59 06/28/19 22:14 Potassium Chloride/Water 100 ml @ 50 mls/hr 1X ONCE IV 06/29/19 09:00 06/29/19 10:59 DC 06/29/19 08:57 Hemodynamically unstable?: No Is patient in severe pain?: Yes Is NPO status required?: Yes JUSTIN WORKMAN III DO Jun 29, 2019 13:53
[2019-06-29] MEDS: INSULIN REGULAR VIAL 100 UNIT in IV NORMAL SALINE 100ML 100 ML IV PRN (16:51)
[2019-06-29] MEDS: IV NORMAL SALINE 1000ML BAG 1,000 ML IV SCH (17:41)
[2019-06-29] MEDS: ACETAMINOPHEN 650 MG SUPP.RECT. PR PRN (20:31)
[2019-06-29] MEDS: INSULIN GLARGINE SYRINGE. SQ SCH (20:32)
[2019-06-29] MEDS: fentaNYL HIGH DOSE PCA 55 ML IV PRN (20:48)
[2019-06-29] MEDS ORDERED: DEXTROSE 70% IV SCH ×9 (22:00)
[2019-06-29] MEDS ORDERED: TOTAL PARENTERAL NUTRITION IV SCH ×9 (22:00)
[2019-06-29] MEDS ORDERED: [UNRECOGNIZED DRUG - OTHER] IV SCH ×9 (22:00)
[2019-06-29] MEDS ORDERED: AMINO ACID IV SCH ×9 (22:00)
[2019-06-30] VITALS (24 sets, daily range): BP systolic 85–110; BP diastolic 47–65
[2019-06-30] MEDS: DEXMEDETOMIDINE 400 MCG in IV NORMAL SALINE 100ML 96 ML IV PRN ×8 (01:56→22:10)
[2019-06-30] MEDS: PROPOFOL 100 ML IV PRN ×5 (03:16→20:48)
[2019-06-30] MEDS: INSULIN LISPRO 300 UNITS/3 ML VIAL. SQ SCH ×6 (03:50→23:56)
[2019-06-30] MEDS: MEROPENEM 500 MG in IV NORMAL SALINE 50ML 50 ML IV SCH ×4 (05:36→23:56)
[2019-06-30] MEDS: ENOXAPARIN 40 MG/0.4 ML SYRINGE. SQ SCH (05:37)
[2019-06-30] MEDS: PANTOPRAZOLE IV PUSH 40 MG VIAL. IVP SCH ×2 (05:37→18:02)
[2019-06-30 05:44] LABS: BASO # 0.1 x10^3/uL (0.0-0.2); BASO % 0 % (0-3); EOS # 0.1 x10^3/uL (0.0-0.7); EOS % 1 % (0-3); HEMOGLOBIN 8.2 g/dL (13.0-17.5); LYMPH # 1.1 x10^3/uL (1.0-4.8); LYMPH % 7 % (24-48); MEAN CORPUSCULAR HEMOGLOBIN 29 pg (25-35); MEAN CORPUSCULAR HGB CONC 33 g/dL (31-37); MEAN CORPUSCULAR VOLUME 89 fL (79-100); MONO # 1.5 x10^3/uL (0.0-1.1); MONO % 9 % (0-9); NEUT # 13.1 x10^3/uL (1.8-7.7); NEUT % 83 % (31-73); PLATELET COUNT 332 x10^3/uL (140-400); RED BLOOD COUNT 2.81 x10^6/uL (4.30-5.70); RED CELL DISTRIBUTION WIDTH 14.5 % (11.5-14.5); WHITE BLOOD COUNT 15.8 x10^3/uL (4.0-11.0)
[2019-06-30 05:57] LABS: ALBUMIN 1.1 g/dL (3.4-5.0); ALBUMIN/GLOBULIN RATIO 0.2 (1.0-1.7); CALCIUM 7.8 mg/dL (8.5-10.1); CREATININE 1.2 mg/dL (0.7-1.3); GFR 77.9; MAGNESIUM 1.9 mg/dL (1.8-2.4); PHOSPHORUS 3.9 mg/dL (2.6-4.7); POTASSIUM 3.5 mmol/L (3.5-5.1); TOTAL BILIRUBIN 4.8 mg/dL (0.2-1.0); TOTAL PROTEIN 5.9 g/dL (6.4-8.2)
--- NOTE | 2019-06-30 06:14 | RAD ---
Chest AP portable at 0501: Reason for examination: Respiratory failure. Comparison is made to previous study dated 06/27/2019. Tracheostomy tube, NG tube and central venous line remain present. Heart and mediastinum are unchanged. Lung ventura show poor inspiratory effort. There are mild hazy infiltrates in the left lung lower lung field with blunting of the costophrenic angle consistent with a small pleural effusion. No acute bony abnormalities are seen. IMPRESSION: Poor inspiratory effort with mild hazy infiltrates at the left lower lung field with a small left pleural effusion. Electronically signed by: Marleny Waldron MD (06/30/2019 6:11 AM) [id number]
--- NOTE | 2019-06-30 07:17 | PDOC ---
Infectious Disease Note Subjective: Subjective Sedated, on vent on 40% Fio2 TPN cont to have Fevers Vital Signs: Vital Signs Vital Signs Date Time Temp Pulse Resp B/P (MAP) Pulse Ox O2 Delivery O2 Flow Rate FiO2 06/30/19 06:00 76 22 85/53 (64) 98 Ventilator 06/30/19 05:00 100.2 100.2 Physical Exam: PHYSICAL EXAM GENERAL: Sedated, trached/vent HEENT: Pupils equal, OGT, NECK: Trach/vent LUNGS: Diminished aeration bases HEART: S1, S2, regular, no murmurs. ABDOMEN: Distended, fairly tight, bowel sounds present. drains x 4, wound vac in place : [place] EXTREMITIES: Trace edema, no cyanosis. SCDs bilaterally SKIN: Warm, dry. 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 (06/19) Medications: Inpatient Meds: Current Medications Medications (Trade) Dose Ordered Sig/Jesse Start Time Stop Time Status Last Admin Dose Admin Acetaminophen (Tylenol Supp) 650 mg PRN Q6HRS PRN 06/14/19 20:00 06/29/19 20:31 650 MG Albumin Human 500 ml @ As Directed STK-MED ONCE 06/22/19 13:25 06/22/19 13:25 DC Albuterol Sulfate (Ventolin Neb Soln) 2.5 mg RTQID 06/22/19 08:00 06/29/19 20:10 2.5 MG Amino Acids/ Electrolytes/ Dextrose 1,000 ml @ 80 mls/hr [id number] 06/12/19 10:15 06/18/19 13:50 DC Amino Acids/ Glycerin/ Electrolytes 1,000 ml @ 80 mls/hr [id number] 06/12/19 10:00 UNV Atropine Sulfate (ATROPINE 0.5mg SYRINGE) 0.5 mg PRN Q5MIN PRN 06/26/19 19:00 Calcium Chloride 2000 mg/Sodium Chloride 120 ml @ 240 mls/hr PRN QID PRN 06/14/19 10:15 06/15/19 09:58 DC 06/15/19 08:32 240 MLS/HR Calcium Gluconate (Calcium Gluconate) 1,000 mg 1X ONCE 06/22/19 19:45 06/22/19 20:15 DC Calcium Gluconate 1000 mg/Sodium Chloride 110 ml @ 220 mls/hr 1X ONCE 06/22/19 20:15 06/22/19 20:44 DC 06/22/19 20:36 220 MLS/HR Calcium Gluconate 5000 mg/Sodium Chloride 250 ml @ 28.782 mls/ hr CONT PRN 06/15/19 09:30 06/18/19 13:50 DC 06/18/19 06:12 28.782 MLS/HR Calcium Gluconate 93371 mg/Sodium Chloride 494 ml @ 4.051 mls/ hr CONT PRN 06/15/19 09:30 06/15/19 09:23 DC Cefoxitin Sodium (Mefoxin) 2 gm 1X PREOP ONCE 06/22/19 11:30 06/22/19 11:31 DC 06/22/19 11:37 2 GM Cellulose (Surgicel Hemostat 4x8) 1 each STK-MED ONCE 06/22/19 12:46 06/22/19 14:25 DC 06/22/19 12:46 1 EACH Chlorhexidine Gluconate (Peridex) 15 ml BID 06/14/19 21:00 06/29/19 20:31 15 ML Dexamethasone Sodium Phosphate (Decadron) 4 mg STK-MED ONCE 06/22/19 11:45 06/22/19 11:45 DC Dexmedetomidine HCl 400 mcg/ Sodium Chloride 100 ml @ 0 mls/hr CONT PRN 06/26/19 19:00 06/30/19 04:55 25.8 MLS/HR Dextrose (Dextrose 50%-Water Syringe) 25 gm 1X ONCE 06/22/19 19:45 06/22/19 19:57 DC 06/22/19 20:37 25 GM Enoxaparin Sodium (Lovenox 40mg Syringe) 40 mg Q24H 06/23/19 06:00 06/30/19 05:37 40 MG Etomidate (Amidate) 14 mg 1X ONCE 06/14/19 13:00 06/14/19 13:01 DC 06/14/19 12:59 14 MG Fentanyl Citrate 55 ml @ 1.98 mls/hr CONT PRN 06/24/19 11:45 06/29/19 20:48 1.98 MLS/HR Fentanyl Citrate (Fentanyl 2ml Vial) 100 mcg 1X ONCE 06/14/19 13:00 06/14/19 13:01 DC 06/14/19 12:58 100 MCG Fentanyl Citrate (Fentanyl 600 Mcg/30 ml PLASTIC PRODUCTION MACHINE SETTER) 600 mcg STK-MED ONCE 06/15/19 05:30 06/18/19 12:07 DC Furosemide (Lasix) 40 mg DAILY 06/27/19 12:00 06/29/19 08:56 40 MG Hydralazine HCl (Apresoline Inj) 10 mg PRN Q4HRS PRN 06/19/19 11:45 06/26/19 15:43 10 MG Hydromorphone HCl (Dilaudid) 1 mg PRN Q2HRS PRN 06/11/19 12:00 06/29/19 07:35 1 MG Info (CONTRAST GIVEN -- Rx MONITORING) 1 each PRN DAILY PRN 06/22/19 08:15 06/24/19 08:14 DC Info (PHARMACY MONITORING -- do not chart) 1 each PRN DAILY PRN 06/14/19 09:00 06/14/19 09:06 DC Info (Tpn Per Pharmacy) 1 each PRN DAILY PRN 06/19/19 11:15 06/29/19 11:06 1 EACH Insulin Glargine (Lantus Syringe) 20 unit QHS 06/21/19 21:00 06/29/19 20:32 20 UNIT Insulin Human Lispro (HumaLOG) 0-7 UNITS Q4HRS 06/15/19 00:15 06/23/19 08:05 7 UNITS Insulin Human Regular (HumuLIN R VIAL) 10 unit 1X ONCE 06/22/19 19:45 06/22/19 19:57 DC 06/22/19 20:45 10 UNIT Insulin Human Regular 100 unit/ Sodium Chloride 101 ml @ 0 mls/hr CONT PRN 06/23/19 12:15 06/29/19 16:51 2.323 MLS/HR Iohexol (Omnipaque 240 Mg/ml) 30 ml 1X ONCE 06/22/19 08:00 06/22/19 08:05 DC Iohexol (Omnipaque 300 Mg/ml) 75 ml 1X ONCE 06/22/19 08:00 06/22/19 08:01 Cancel Iohexol (Omnipaque 350 Mg/ml) 100 ml 1X ONCE 06/11/19 04:45 06/11/19 04:46 DC 2/26/20 05:01 100 ML Labetalol HCl (Normodyne Iv Push) 20 mg PRN Q2HR PRN 06/19/19 11:45 06/26/19 14:44 20 MG Lidocaine HCl (Buffered Lidocaine 1%) 6 ml 1X ONCE 06/13/19 09:30 06/13/19 09:31 DC 06/13/19 09:23 6 ML Lidocaine HCl (Lidocaine Pf 2% Vial) 5 ml STK-MED ONCE 06/14/19 12:00 06/17/19 10:37 DC Linezolid/Dextrose 300 ml @ 300 mls/hr Q12HR 06/14/19 21:00 06/29/19 20:31 300 MLS/HR Lorazepam (Ativan Inj) 1 mg PRN Q6HRS PRN 06/11/19 18:15 06/29/19 07:48 1 MG Magnesium Sulfate 50 ml @ 25 mls/hr PRN DAILY PRN 06/14/19 10:30 Meropenem 500 mg/ Sodium Chloride 50 ml @ 100 mls/hr Q6HRS 06/18/19 07:30 06/30/19 05:36 100 MLS/HR Metoprolol Tartrate (Lopressor Vial) 5 mg 1X ONCE 06/18/19 12:15 06/18/19 12:16 DC Micafungin Sodium 100 mg/Dextrose 100 ml @ 100 mls/hr Q24H 06/20/19 09:00 06/29/19 08:57 100 MLS/HR Midazolam HCl (Versed) 5 mg 1X ONCE 06/14/19 13:00 06/14/19 13:01 DC 06/14/19 12:59 5 MG Midazolam HCl 50 mg/Sodium Chloride 50 ml @ 0 mls/hr CONT PRN 06/14/19 12:45 06/26/19 19:35 2 MLS/HR Morphine Sulfate (Morphine Sulfate) 1 mg PRN Q1HR PRN 06/22/19 15:45 Naloxone HCl (Narcan) 0.4 mg PRN Q2MIN PRN 06/22/19 15:45 Nicardipine HCl 50 mg/Sodium Chloride 250 ml @ 25 mls/hr CONT PRN 06/18/19 11:45 Norepinephrine Bitartrate 8 mg/ Dextrose 258 ml @ 20.027 mls/ hr CONT PRN 06/14/19 10:30 06/14/19 10:31 20.027 MLS/HR Nystatin (Nystop) 1 devorah PRN QID PRN 06/11/19 23:15 06/11/19 23:19 1 DEVORAH Ondansetron HCl (Zofran) 4 mg PRN Q6HRS PRN 06/22/19 15:45 Pantoprazole Sodium (PROTONIX VIAL for IV PUSH) 40 mg [id number] 06/13/19 21:00 06/30/19 05:37 40 MG Piperacillin Sod/ Tazobactam Sod (Zosyn Per Pharmacy) 1 each PRN DAILY PRN 06/12/19 13:15 06/12/19 19:16 DC Piperacillin Sod/ Tazobactam Sod 2.25 gm/Sodium Chloride 50 ml @ 100 mls/hr Q6HRS 06/12/19 13:30 06/12/19 19:15 DC 06/12/19 13:48 100 MLS/HR Potassium Chloride/Water 100 ml @ 50 mls/hr 1X ONCE 06/29/19 09:00 06/29/19 10:59 DC 06/29/19 08:57 50 MLS/HR Potassium Phosphate 10 mmol/ Magnesium Sulfate 5 meq/Calcium Gluconate 15 meq/ Multivitamins 10 ml/Chromium/ Copper/Manganese/ Seleni/Zn 0.5 ml/ Potassium Acetate 20 meq/Total Parenteral Nutrition/Amino Acids/Dextrose/ Fat Emulsion Intravenous 1,920 ml @ 80 mls/hr TPN CONT 06/29/19 22:00 06/30/19 21:59 06/29/19 21:32 80 MLS/HR Potassium Phosphate 10 mmol/ Magnesium Sulfate 5 meq/Calcium Gluconate 15 meq/ Multivitamins 10 ml/Chromium/ Copper/Manganese/ Seleni/Zn 0.5 ml/ Total Parenteral Nutrition/Amino Acids/Dextrose/ Fat Emulsion Intravenous 1,920 ml @ 80 mls/hr TPN CONT 06/27/19 22:00 06/28/19 21:59 DC 06/27/19 21:38 80 MLS/HR Potassium Phosphate 13.6 mmol/Calcium Gluconate 20 meq/ Multivitamins 10 ml/Chromium/ Copper/Manganese/ Seleni/Zn 0.5 ml/ Insulin Human Regular 10 unit/ Total Parenteral Nutrition/Amino Acids/Dextrose/ Fat Emulsion Intravenous 1,920 ml @ 80 mls/hr TPN CONT 06/21/19 22:00 06/22/19 21:59 DC 06/21/19 21:31 80 MLS/HR Potassium Phosphate 13.6 mmol/Magnesium Sulfate 10 meq/ Calcium Gluconate 20 meq/ Multivitamins 10 ml/Chromium/ Copper/Manganese/ Seleni/Zn 0.5 ml/ Total Parenteral Nutrition/Amino Acids/Dextrose/ Fat Emulsion Intravenous 1,920 ml @ 80 mls/hr TPN CONT 06/19/19 22:00 06/20/19 21:59 DC 06/19/19 21:31 80 MLS/HR Potassium Phosphate 13.6 mmol/Magnesium Sulfate 5 meq/ Calcium Gluconate 20 meq/ Multivitamins 10 ml/Chromium/ Copper/Manganese/ Seleni/Zn 0.5 ml/ Total Parenteral Nutrition/Amino Acids/Dextrose/ Fat Emulsion Intravenous 1,920 ml @ 80 mls/hr TPN CONT 06/22/19 22:00 06/23/19 21:59 DC 06/22/19 22:14 80 MLS/HR Prochlorperazine Edisylate (Compazine) 10 mg PRN Q8HRS PRN 06/11/19 12:00 06/12/19 14:59 10 MG Propofol 100 ml @ 6.588 mls/ hr CONT PRN 06/27/19 12:00 06/30/19 03:16 23.058 MLS/HR Ringer's Solution 1,000 ml @ 100 mls/hr Q10H 06/22/19 15:39 06/24/19 17:46 DC 06/23/19 22:06 100 MLS/HR Rocuronium [place] (Zemuron) 50 mg STK-MED ONCE 06/22/19 14:52 06/22/19 14:52 DC Sevoflurane (Ultane) 90 ml STK-MED ONCE 06/22/19 13:53 06/22/19 13:53 DC Sodium Bicarbonate 50 meq/Sodium Chloride 1,050 ml @ 150 mls/hr Q7H 06/12/19 11:00 06/13/19 14:48 DC 06/13/19 04:16 150 MLS/HR Sodium Bicarbonate (Sodium Bicarb Adult 8.4% Syr) 50 meq 1X ONCE 06/26/19 19:30 06/26/19 19:23 DC Sodium Chloride 500 ml @ 500 mls/hr 1X PRN PRN 06/26/19 19:00 Sodium Chloride (Normal Saline Flush) 3 ml QSHIFT PRN 06/22/19 15:45 Sodium Phosphate 10 mmol/Magnesium Sulfate 5 meq/ Calcium Gluconate 15 meq/ Multivitamins 10 ml/Chromium/ Copper/Manganese/ Seleni/Zn 0.5 ml/ Insulin Human Regular 10 unit/ Total Parenteral Nutrition/Amino Acids/Dextrose/ Fat Emulsion Intravenous 1,920 ml @ 80 mls/hr TPN CONT 06/23/19 22:00 06/24/19 21:59 DC 06/23/19 22:20 80 MLS/HR Sodium Phosphate 10 mmol/Magnesium Sulfate 5 meq/ Calcium Gluconate 15 meq/ Multivitamins 10 ml/Chromium/ Copper/Manganese/ Seleni/Zn 0.5 ml/ Total Parenteral Nutrition/Amino Acids/Dextrose/ Fat Emulsion Intravenous 1,920 ml @ 80 mls/hr TPN CONT 06/27/19 22:00 06/27/19 12:55 DC Succinylcholine Chloride (Anectine) 200 mg 1X ONCE 06/14/19 13:00 06/14/19 13:01 DC 06/14/19 12:59 200 MG Vecuronium [place] 50 mg/ Miscellaneous 50 ml @ 4.925 mls/ hr CONT PRN 06/22/19 15:00 06/25/19 05:19 4.925 MLS/HR Labs: Lab Laboratory Tests Test 06/29/19 08:07 06/29/19 11:10 06/29/19 11:21 06/29/19 13:23 O2 Saturation 96 % (92-99) Arterial Blood pH 7.44 (7.35-7.45) Arterial Blood pCO2 at Patient Temp 41 mmHg (35-46) Arterial Blood pO2 at Patient Temp 88 mmHg (75-108) Arterial Blood HCO3 28 mmol/L (21-28) Arterial Blood Base Excess 3 mmol/L (-3-3) FiO2 40 Urine Collection Type Unknown Urine Color Demi Urine Clarity Clear Urine pH 6.0 (<5.0-8.0) Urine Specific [place] 1.015 (1.000-1.030) Urine Protein Negative mg/dL (NEG-TRACE) Urine Glucose (UA) Negative mg/dL (NEG) Urine Ketones (Stick) Negative mg/dL (NEG) Urine Blood Negative (NEG) Urine Nitrite Negative (NEG) Urine Bilirubin Small (NEG) Urine Urobilinogen Dipstick 0.2 mg/dL (0.2 mg/dL) Urine Leukocyte Esterase Negative (NEG) Urine RBC 1-2 /HPF (0-2) Urine WBC 1-4 /HPF (0-4) Urine Squamous Epithelial Cells Few /LPF Urine Amorphous Sediment Present /HPF Urine Bacteria 0 /HPF (0-FEW) Urine Hyaline Casts Moderate /HPF Urine Mucus Mod /LPF Glucose (Fingerstick) 207 mg/dL (70-99) 195 mg/dL (70-99) Test 06/29/19 18:21 06/29/19 20:22 06/29/19 21:29 06/29/19 23:42 Glucose (Fingerstick) 148 mg/dL (70-99) 176 mg/dL (70-99) 215 mg/dL (70-99) 136 mg/dL (70-99) Test 06/30/19 01:36 06/30/19 02:43 06/30/19 03:49 06/30/19 04:58 Glucose (Fingerstick) 103 mg/dL (70-99) 94 mg/dL (70-99) 144 mg/dL (70-99) 138 mg/dL (70-99) Test 06/30/19 05:30 06/30/19 06:06 White Blood Count 15.8 x10^3/uL (4.0-11.0) Red Blood Count 2.81 x10^6/uL (4.30-5.70) Hemoglobin 8.2 g/dL (13.0-17.5) Hematocrit 25.0 % (39.0-53.0) Mean Corpuscular Volume 89 fL (79-100) Mean Corpuscular Hemoglobin 29 pg (25-35) Mean Corpuscular Hemoglobin Concent 33 g/dL (31-37) Red Cell Distribution Width 14.5 % (11.5-14.5) Platelet Count 332 x10^3/uL (140-400) Neutrophils (%) (Auto) 83 % (31-73) Lymphocytes (%) (Auto) 7 % (24-48) Monocytes (%) (Auto) 9 % (0-9) Eosinophils (%) (Auto) 1 % (0-3) Basophils (%) (Auto) 0 % (0-3) Neutrophils # (Auto) 13.1 x10^3/uL (1.8-7.7) Lymphocytes # (Auto) 1.1 x10^3/uL (1.0-4.8) Monocytes # (Auto) 1.5 x10^3/uL (0.0-1.1) Eosinophils # (Auto) 0.1 x10^3/uL (0.0-0.7) Basophils # (Auto) 0.1 x10^3/uL (0.0-0.2) Sodium Level 143 mmol/L (136-145) Potassium Level 3.5 mmol/L (3.5-5.1) Chloride Level 108 mmol/L (98-107) Carbon Dioxide Level 29 mmol/L (21-32) Anion Gap 6 (6-14) Blood Urea Nitrogen 73 mg/dL (8-26) Creatinine 1.2 mg/dL (0.7-1.3) Estimated GFR (Cockcroft-Gault) 77.9 BUN/Creatinine Ratio 61 (6-20) Glucose Level 152 mg/dL (70-99) Calcium Level 7.8 mg/dL (8.5-10.1) Phosphorus Level 3.9 mg/dL (2.6-4.7) Magnesium Level 1.9 mg/dL (1.8-2.4) Total Bilirubin 4.8 mg/dL (0.2-1.0) Aspartate Amino Transf (AST/SGOT) 65 U/L (15-37) Alanine Aminotransferase (ALT/SGPT) 73 U/L (16-63) Alkaline Phosphatase 250 U/L (46-116) Total Protein 5.9 g/dL (6.4-8.2) Albumin 1.1 g/dL (3.4-5.0) Albumin/Globulin Ratio 0.2 (1.0-1.7) Triglycerides Level 290 mg/dL (0-150) Glucose (Fingerstick) 139 mg/dL (70-99) Objective: Assessment: . Fever Leukocytosis Gallbladder stone pancreatitis s/p expl lap, pancreatic necrosectomy, cholecystostomy tube placement, G-tube placement with jejunal extension, 3/8 Loculated fluid collection along the anterior aspect of the pancreas measures 3.0 x 2.6 cm and fluid collection along the inferior aspect of the stomach measures 9.6 x 4.0 cm, on CT 06/21 Sepsis from GI - cult neg Acute Resp failure - s/p trach 06/21 Lactic acidosis. Acute kidney injury previously requiring dialysis - now with improved UOP, HDC (06/13) still in place Metabolic acidosis. Hypocalcemia Plan: Plan of Care Continue merrem, micafungin (06/19) and Zyvox( ) BC neg Repeat BC change central line if not done already Maintain aspiration precaution. May need re-imaging Gen surgery following D/w nursing Critically ill D/W at bedside THUY GOODMAN MD Jun 30, 2019 07:17
--- NOTE | 2019-06-30 08:33 | PDOC ---
PULMONARY PROGRESS NOTES Subjective on vent, sedated, trach 06/21, SEDATED NOW AFEBRILE Vitals Vital Signs Date Time Temp Pulse Resp B/P (MAP) Pulse Ox O2 Delivery O2 Flow Rate FiO2 06/30/19 07:59 76 22 98/59 (72) 100 Ventilator 06/30/19 07:41 99.7 99.7 HEENT: Other (nc at perrl nose clear, neck, trach site ok, no lad, no thyromegaly) Lungs: Crackles Cardiovascular: S1, S2 Abdomen: Other (/distended/firm ) Extremities: No Edema Skin: Warm Labs Laboratory Tests Test 06/28/19 10:13 06/28/19 13:01 06/28/19 16:18 06/28/19 17:48 Glucose (Fingerstick) 152 mg/dL (70-99) 166 mg/dL (70-99) 166 mg/dL (70-99) 142 mg/dL (70-99) Test 06/28/19 19:15 06/28/19 21:58 06/28/19 23:44 06/29/19 03:02 Glucose (Fingerstick) 124 mg/dL (70-99) 165 mg/dL (70-99) 119 mg/dL (70-99) 94 mg/dL (70-99) Test 06/29/19 06:00 06/29/19 06:09 06/29/19 08:07 06/29/19 11:10 White Blood Count 15.5 x10^3/uL (4.0-11.0) Red Blood Count 2.78 x10^6/uL (4.30-5.70) Hemoglobin 8.1 g/dL (13.0-17.5) Hematocrit 24.7 % (39.0-53.0) Mean Corpuscular Volume 89 fL (79-100) Mean Corpuscular Hemoglobin 29 pg (25-35) Mean Corpuscular Hemoglobin Concent 33 g/dL (31-37) Red Cell Distribution Width 14.4 % (11.5-14.5) Platelet Count 302 x10^3/uL (140-400) Neutrophils (%) (Auto) 81 % (31-73) Lymphocytes (%) (Auto) 8 % (24-48) Monocytes (%) (Auto) 11 % (0-9) Eosinophils (%) (Auto) 0 % (0-3) Basophils (%) (Auto) 1 % (0-3) Neutrophils # (Auto) 12.5 x10^3/uL (1.8-7.7) Lymphocytes # (Auto) 1.2 x10^3/uL (1.0-4.8) Monocytes # (Auto) 1.6 x10^3/uL (0.0-1.1) Eosinophils # (Auto) 0.0 x10^3/uL (0.0-0.7) Basophils # (Auto) 0.1 x10^3/uL (0.0-0.2) Sodium Level 145 mmol/L (136-145) Potassium Level 3.4 mmol/L (3.5-5.1) Chloride Level 108 mmol/L (98-107) Carbon Dioxide Level 30 mmol/L (21-32) Anion Gap 7 (6-14) Blood Urea Nitrogen 71 mg/dL (8-26) Creatinine 1.3 mg/dL (0.7-1.3) Estimated GFR (Cockcroft-Gault) 71.0 Glucose Level 123 mg/dL (70-99) Calcium Level 7.4 mg/dL (8.5-10.1) Glucose (Fingerstick) 124 mg/dL (70-99) O2 Saturation 96 % (92-99) Arterial Blood pH 7.44 (7.35-7.45) Arterial Blood pCO2 at Patient Temp 41 mmHg (35-46) Arterial Blood pO2 at Patient Temp 88 mmHg (75-108) Arterial Blood HCO3 28 mmol/L (21-28) Arterial Blood Base Excess 3 mmol/L (-3-3) FiO2 40 Urine Collection Type Unknown Urine Color Demi Urine Clarity Clear Urine pH 6.0 (<5.0-8.0) Urine Specific [place] 1.015 (1.000-1.030) Urine Protein Negative mg/dL (NEG-TRACE) Urine Glucose (UA) Negative mg/dL (NEG) Urine Ketones (Stick) Negative mg/dL (NEG) Urine Blood Negative (NEG) Urine Nitrite Negative (NEG) Urine Bilirubin Small (NEG) Urine Urobilinogen Dipstick 0.2 mg/dL (0.2 mg/dL) Urine Leukocyte Esterase Negative (NEG) Urine RBC 1-2 /HPF (0-2) Urine WBC 1-4 /HPF (0-4) Urine Squamous Epithelial Cells Few /LPF Urine Amorphous Sediment Present /HPF Urine Bacteria 0 /HPF (0-FEW) Urine Hyaline Casts Moderate /HPF Urine Mucus Mod /LPF Test 06/29/19 11:21 06/29/19 13:23 06/29/19 18:21 06/29/19 20:22 Glucose (Fingerstick) 207 mg/dL (70-99) 195 mg/dL (70-99) 148 mg/dL (70-99) 176 mg/dL (70-99) Test 06/29/19 21:29 06/29/19 23:42 06/30/19 01:36 06/30/19 02:43 Glucose (Fingerstick) 215 mg/dL (70-99) 136 mg/dL (70-99) 103 mg/dL (70-99) 94 mg/dL (70-99) Test 06/30/19 03:49 06/30/19 04:58 06/30/19 05:30 06/30/19 06:06 Glucose (Fingerstick) 144 mg/dL (70-99) 138 mg/dL (70-99) 139 mg/dL (70-99) White Blood Count 15.8 x10^3/uL (4.0-11.0) Red Blood Count 2.81 x10^6/uL (4.30-5.70) Hemoglobin 8.2 g/dL (13.0-17.5) Hematocrit 25.0 % (39.0-53.0) Mean Corpuscular Volume 89 fL (79-100) Mean Corpuscular Hemoglobin 29 pg (25-35) Mean Corpuscular Hemoglobin Concent 33 g/dL (31-37) Red Cell Distribution Width 14.5 % (11.5-14.5) Platelet Count 332 x10^3/uL (140-400) Neutrophils (%) (Auto) 83 % (31-73) Lymphocytes (%) (Auto) 7 % (24-48) Monocytes (%) (Auto) 9 % (0-9) Eosinophils (%) (Auto) 1 % (0-3) Basophils (%) (Auto) 0 % (0-3) Neutrophils # (Auto) 13.1 x10^3/uL (1.8-7.7) Lymphocytes # (Auto) 1.1 x10^3/uL (1.0-4.8) Monocytes # (Auto) 1.5 x10^3/uL (0.0-1.1) Eosinophils # (Auto) 0.1 x10^3/uL (0.0-0.7) Basophils # (Auto) 0.1 x10^3/uL (0.0-0.2) Sodium Level 143 mmol/L (136-145) Potassium Level 3.5 mmol/L (3.5-5.1) Chloride Level 108 mmol/L (98-107) Carbon Dioxide Level 29 mmol/L (21-32) Anion Gap 6 (6-14) Blood Urea Nitrogen 73 mg/dL (8-26) Creatinine 1.2 mg/dL (0.7-1.3) Estimated GFR (Cockcroft-Gault) 77.9 BUN/Creatinine Ratio 61 (6-20) Glucose Level 152 mg/dL (70-99) Calcium Level 7.8 mg/dL (8.5-10.1) Phosphorus Level 3.9 mg/dL (2.6-4.7) Magnesium Level 1.9 mg/dL (1.8-2.4) Total Bilirubin 4.8 mg/dL (0.2-1.0) Aspartate Amino Transf (AST/SGOT) 65 U/L (15-37) Alanine Aminotransferase (ALT/SGPT) 73 U/L (16-63) Alkaline Phosphatase 250 U/L (46-116) Total Protein 5.9 g/dL (6.4-8.2) Albumin 1.1 g/dL (3.4-5.0) Albumin/Globulin Ratio 0.2 (1.0-1.7) Triglycerides Level 290 mg/dL (0-150) Test 06/30/19 07:37 Glucose (Fingerstick) 149 mg/dL (70-99) Laboratory Tests Test 06/29/19 11:10 06/29/19 11:21 06/29/19 13:23 06/29/19 18:21 Urine Collection Type Unknown Urine Color Demi Urine Clarity Clear Urine pH 6.0 (<5.0-8.0) Urine Specific [place] 1.015 (1.000-1.030) Urine Protein Negative mg/dL (NEG-TRACE) Urine Glucose (UA) Negative mg/dL (NEG) Urine Ketones (Stick) Negative mg/dL (NEG) Urine Blood Negative (NEG) Urine Nitrite Negative (NEG) Urine Bilirubin Small (NEG) Urine Urobilinogen Dipstick 0.2 mg/dL (0.2 mg/dL) Urine Leukocyte Esterase Negative (NEG) Urine RBC 1-2 /HPF (0-2) Urine WBC 1-4 /HPF (0-4) Urine Squamous Epithelial Cells Few /LPF Urine Amorphous Sediment Present /HPF Urine Bacteria 0 /HPF (0-FEW) Urine Hyaline Casts Moderate /HPF Urine Mucus Mod /LPF Glucose (Fingerstick) 207 mg/dL (70-99) 195 mg/dL (70-99) 148 mg/dL (70-99) Test 06/29/19 20:22 06/29/19 21:29 06/29/19 23:42 06/30/19 01:36 Glucose (Fingerstick) 176 mg/dL (70-99) 215 mg/dL (70-99) 136 mg/dL (70-99) 103 mg/dL (70-99) Test 06/30/19 02:43 06/30/19 03:49 06/30/19 04:58 06/30/19 05:30 Glucose (Fingerstick) 94 mg/dL (70-99) 144 mg/dL (70-99) 138 mg/dL (70-99) White Blood Count 15.8 x10^3/uL (4.0-11.0) Red Blood Count 2.81 x10^6/uL (4.30-5.70) Hemoglobin 8.2 g/dL (13.0-17.5) Hematocrit 25.0 % (39.0-53.0) Mean Corpuscular Volume 89 fL (79-100) Mean Corpuscular Hemoglobin 29 pg (25-35) Mean Corpuscular Hemoglobin Concent 33 g/dL (31-37) Red Cell Distribution Width 14.5 % (11.5-14.5) Platelet Count 332 x10^3/uL (140-400) Neutrophils (%) (Auto) 83 % (31-73) Lymphocytes (%) (Auto) 7 % (24-48) Monocytes (%) (Auto) 9 % (0-9) Eosinophils (%) (Auto) 1 % (0-3) Basophils (%) (Auto) 0 % (0-3) Neutrophils # (Auto) 13.1 x10^3/uL (1.8-7.7) Lymphocytes # (Auto) 1.1 x10^3/uL (1.0-4.8) Monocytes # (Auto) 1.5 x10^3/uL (0.0-1.1) Eosinophils # (Auto) 0.1 x10^3/uL (0.0-0.7) Basophils # (Auto) 0.1 x10^3/uL (0.0-0.2) Sodium Level 143 mmol/L (136-145) Potassium Level 3.5 mmol/L (3.5-5.1) Chloride Level 108 mmol/L (98-107) Carbon Dioxide Level 29 mmol/L (21-32) Anion Gap 6 (6-14) Blood Urea Nitrogen 73 mg/dL (8-26) Creatinine 1.2 mg/dL (0.7-1.3) Estimated GFR (Cockcroft-Gault) 77.9 BUN/Creatinine Ratio 61 (6-20) Glucose Level 152 mg/dL (70-99) Calcium Level 7.8 mg/dL (8.5-10.1) Phosphorus Level 3.9 mg/dL (2.6-4.7) Magnesium Level 1.9 mg/dL (1.8-2.4) Total Bilirubin 4.8 mg/dL (0.2-1.0) Aspartate Amino Transf (AST/SGOT) 65 U/L (15-37) Alanine Aminotransferase (ALT/SGPT) 73 U/L (16-63) Alkaline Phosphatase 250 U/L (46-116) Total Protein 5.9 g/dL (6.4-8.2) Albumin 1.1 g/dL (3.4-5.0) Albumin/Globulin Ratio 0.2 (1.0-1.7) Triglycerides Level 290 mg/dL (0-150) Test 06/30/19 06:06 06/30/19 07:37 Glucose (Fingerstick) 139 mg/dL (70-99) 149 mg/dL (70-99) Medications Active Scripts Medications Dose Route/Sig Max Daily Dose Days Date Category Comments CXR reviewed l minimal atelectasis, effusion ct abdomen 06/21 report reviewed Impression . IMPRESSION: 1. Acute hypoxemic respiratory failure, multifactorial. 2. Acute gallstone pancreatitis./ Necrosis. s/p Exploratory laparotomy, pancreatic necrosectomy, cholecystostomy tube placement, Gastrostomy placement with jejunal extension, tracheostomy placement (specifically 8 shiley cuffed) 06/21 3. Acute kidney failure. improving 4. Metabolic toxic encephalopathy. 5. Hyperkalemia.corrected 6. Metabolic / respiratory acidosis 7. Hypocalcemia. 8. POSSIBLE ABD COMPARTMENT SYNDROME , s/p Exp lap 9. HEP B S POSITIVE 10. Hypernatremia, resolved 11. LLL small effusion, monitor Poor inspiratory effort with mild hazy infiltrates at the left lower lung field with a small left pleural effusion. Plan . AC MODE FOR NOW WILL NEED TO FIND A HAPPY MEDIUM FOR SEDATION AND START TO WEAN ANTIBX PER ID NUTRITION PER SURGERY PRN suctioning, BD DESTINI MATOS MD Jun 30, 2019 08:33
[2019-06-30] MEDS: ALBUTEROL SULFATE 2.5 MG/3 ML NEBU. NEB SCH ×4 (08:40→20:16)
[2019-06-30] MEDS: CHLORHEXIDINE 0.12% 15 ML MOUTHWASH. MM SCH ×2 (09:00→20:47)
[2019-06-30 09:07] LABS: BASE EXCESS ABG 2 mmol/L (-3-3); HCO3 ABG 26 mmol/L (21-28); PCO2 ABG 38 mmHg (35-46); PO2 ABG 96 mmHg (75-108); SAT O2 ABG 97 % (92-99)
[2019-06-30 09:08] LABS: FIO2 ABG 40
[2019-06-30] MEDS: MICAFUNGIN 100 MG in IV DEXTROSE 5% 100ML 100 ML IV SCH (09:32)
[2019-06-30] MEDS: FUROSEMIDE 40 MG/4 ML VIAL. IVP SCH (09:34)
--- NOTE | 2019-06-30 10:50 | NUR ---
SS following up with discharge planning. SS phoned and faxed clinical updates to [facility], ; fax [phone]. SS will continue to follow for discharge planning.
--- NOTE | 2019-06-30 11:51 | PDOC ---
MAXIMILIANO GREENBERG WHE[employer] RENTAL CLERK 06/30/19 1151: SURGICAL PROGRESS NOTE Subjective vent, family present Vital Signs Vital Signs Date Time Temp Pulse Resp B/P (MAP) Pulse Ox O2 Delivery O2 Flow Rate FiO2 06/30/19 11:13 97 Ventilator 06/30/19 10:59 99.9 79 20 100/54 (69) 99.9 I&O Intake and Output 06/30/19 07:00 Intake Total 2560.5 ml Output Total 3795 ml Balance -1234.5 ml IV Total 2560.5 ml Output Urine Total 2875 ml Drainage Total 920 ml PATIENT HAS A LEPE: Yes General: Other (sedated ) Abdomen: Soft, Other (drains in place) Labs Laboratory Tests Test 06/28/19 13:01 06/28/19 16:18 06/28/19 17:48 06/28/19 19:15 Glucose (Fingerstick) 166 mg/dL (70-99) 166 mg/dL (70-99) 142 mg/dL (70-99) 124 mg/dL (70-99) Test 06/28/19 21:58 06/28/19 23:44 06/29/19 03:02 06/29/19 06:00 Glucose (Fingerstick) 165 mg/dL (70-99) 119 mg/dL (70-99) 94 mg/dL (70-99) White Blood Count 15.5 x10^3/uL (4.0-11.0) Red Blood Count 2.78 x10^6/uL (4.30-5.70) Hemoglobin 8.1 g/dL (13.0-17.5) Hematocrit 24.7 % (39.0-53.0) Mean Corpuscular Volume 89 fL (79-100) Mean Corpuscular Hemoglobin 29 pg (25-35) Mean Corpuscular Hemoglobin Concent 33 g/dL (31-37) Red Cell Distribution Width 14.4 % (11.5-14.5) Platelet Count 302 x10^3/uL (140-400) Neutrophils (%) (Auto) 81 % (31-73) Lymphocytes (%) (Auto) 8 % (24-48) Monocytes (%) (Auto) 11 % (0-9) Eosinophils (%) (Auto) 0 % (0-3) Basophils (%) (Auto) 1 % (0-3) Neutrophils # (Auto) 12.5 x10^3/uL (1.8-7.7) Lymphocytes # (Auto) 1.2 x10^3/uL (1.0-4.8) Monocytes # (Auto) 1.6 x10^3/uL (0.0-1.1) Eosinophils # (Auto) 0.0 x10^3/uL (0.0-0.7) Basophils # (Auto) 0.1 x10^3/uL (0.0-0.2) Sodium Level 145 mmol/L (136-145) Potassium Level 3.4 mmol/L (3.5-5.1) Chloride Level 108 mmol/L (98-107) Carbon Dioxide Level 30 mmol/L (21-32) Anion Gap 7 (6-14) Blood Urea Nitrogen 71 mg/dL (8-26) Creatinine 1.3 mg/dL (0.7-1.3) Estimated GFR (Cockcroft-Gault) 71.0 Glucose Level 123 mg/dL (70-99) Calcium Level 7.4 mg/dL (8.5-10.1) Test 06/29/19 06:09 06/29/19 08:07 06/29/19 11:10 06/29/19 11:21 Glucose (Fingerstick) 124 mg/dL (70-99) 207 mg/dL (70-99) O2 Saturation 96 % (92-99) Arterial Blood pH 7.44 (7.35-7.45) Arterial Blood pCO2 at Patient Temp 41 mmHg (35-46) Arterial Blood pO2 at Patient Temp 88 mmHg (75-108) Arterial Blood HCO3 28 mmol/L (21-28) Arterial Blood Base Excess 3 mmol/L (-3-3) FiO2 40 Urine Collection Type Unknown Urine Color Demi Urine Clarity Clear Urine pH 6.0 (<5.0-8.0) Urine Specific [place] 1.015 (1.000-1.030) Urine Protein Negative mg/dL (NEG-TRACE) Urine Glucose (UA) Negative mg/dL (NEG) Urine Ketones (Stick) Negative mg/dL (NEG) Urine Blood Negative (NEG) Urine Nitrite Negative (NEG) Urine Bilirubin Small (NEG) Urine Urobilinogen Dipstick 0.2 mg/dL (0.2 mg/dL) Urine Leukocyte Esterase Negative (NEG) Urine RBC 1-2 /HPF (0-2) Urine WBC 1-4 /HPF (0-4) Urine Squamous Epithelial Cells Few /LPF Urine Amorphous Sediment Present /HPF Urine Bacteria 0 /HPF (0-FEW) Urine Hyaline Casts Moderate /HPF Urine Mucus Mod /LPF Test 06/29/19 13:23 06/29/19 18:21 06/29/19 20:22 06/29/19 21:29 Glucose (Fingerstick) 195 mg/dL (70-99) 148 mg/dL (70-99) 176 mg/dL (70-99) 215 mg/dL (70-99) Test 06/29/19 23:42 06/30/19 01:36 06/30/19 02:43 06/30/19 03:49 Glucose (Fingerstick) 136 mg/dL (70-99) 103 mg/dL (70-99) 94 mg/dL (70-99) 144 mg/dL (70-99) Test 06/30/19 04:58 06/30/19 05:30 06/30/19 06:06 06/30/19 07:37 Glucose (Fingerstick) 138 mg/dL (70-99) 139 mg/dL (70-99) 149 mg/dL (70-99) White Blood Count 15.8 x10^3/uL (4.0-11.0) Red Blood Count 2.81 x10^6/uL (4.30-5.70) Hemoglobin 8.2 g/dL (13.0-17.5) Hematocrit 25.0 % (39.0-53.0) Mean Corpuscular Volume 89 fL (79-100) Mean Corpuscular Hemoglobin 29 pg (25-35) Mean Corpuscular Hemoglobin Concent 33 g/dL (31-37) Red Cell Distribution Width 14.5 % (11.5-14.5) Platelet Count 332 x10^3/uL (140-400) Neutrophils (%) (Auto) 83 % (31-73) Lymphocytes (%) (Auto) 7 % (24-48) Monocytes (%) (Auto) 9 % (0-9) Eosinophils (%) (Auto) 1 % (0-3) Basophils (%) (Auto) 0 % (0-3) Neutrophils # (Auto) 13.1 x10^3/uL (1.8-7.7) Lymphocytes # (Auto) 1.1 x10^3/uL (1.0-4.8) Monocytes # (Auto) 1.5 x10^3/uL (0.0-1.1) Eosinophils # (Auto) 0.1 x10^3/uL (0.0-0.7) Basophils # (Auto) 0.1 x10^3/uL (0.0-0.2) Sodium Level 143 mmol/L (136-145) Potassium Level 3.5 mmol/L (3.5-5.1) Chloride Level 108 mmol/L (98-107) Carbon Dioxide Level 29 mmol/L (21-32) Anion Gap 6 (6-14) Blood Urea Nitrogen 73 mg/dL (8-26) Creatinine 1.2 mg/dL (0.7-1.3) Estimated GFR (Cockcroft-Gault) 77.9 BUN/Creatinine Ratio 61 (6-20) Glucose Level 152 mg/dL (70-99) Calcium Level 7.8 mg/dL (8.5-10.1) Phosphorus Level 3.9 mg/dL (2.6-4.7) Magnesium Level 1.9 mg/dL (1.8-2.4) Total Bilirubin 4.8 mg/dL (0.2-1.0) Aspartate Amino Transf (AST/SGOT) 65 U/L (15-37) Alanine Aminotransferase (ALT/SGPT) 73 U/L (16-63) Alkaline Phosphatase 250 U/L (46-116) Total Protein 5.9 g/dL (6.4-8.2) Albumin 1.1 g/dL (3.4-5.0) Albumin/Globulin Ratio 0.2 (1.0-1.7) Triglycerides Level 290 mg/dL (0-150) Test 06/30/19 08:45 06/30/19 08:48 06/30/19 10:57 O2 Saturation 97 % (92-99) Arterial Blood pH 7.45 (7.35-7.45) Arterial Blood pCO2 at Patient Temp 38 mmHg (35-46) Arterial Blood pO2 at Patient Temp 96 mmHg (75-108) Arterial Blood HCO3 26 mmol/L (21-28) Arterial Blood Base Excess 2 mmol/L (-3-3) FiO2 40 Glucose (Fingerstick) 143 mg/dL (70-99) 179 mg/dL (70-99) Laboratory Tests Test 06/29/19 13:23 06/29/19 18:21 06/29/19 20:22 06/29/19 21:29 Glucose (Fingerstick) 195 mg/dL (70-99) 148 mg/dL (70-99) 176 mg/dL (70-99) 215 mg/dL (70-99) Test 06/29/19 23:42 06/30/19 01:36 06/30/19 02:43 06/30/19 03:49 Glucose (Fingerstick) 136 mg/dL (70-99) 103 mg/dL (70-99) 94 mg/dL (70-99) 144 mg/dL (70-99) Test 06/30/19 04:58 06/30/19 05:30 06/30/19 06:06 06/30/19 07:37 Glucose (Fingerstick) 138 mg/dL (70-99) 139 mg/dL (70-99) 149 mg/dL (70-99) White Blood Count 15.8 x10^3/uL (4.0-11.0) Red Blood Count 2.81 x10^6/uL (4.30-5.70) Hemoglobin 8.2 g/dL (13.0-17.5) Hematocrit 25.0 % (39.0-53.0) Mean Corpuscular Volume 89 fL (79-100) Mean Corpuscular Hemoglobin 29 pg (25-35) Mean Corpuscular Hemoglobin Concent 33 g/dL (31-37) Red Cell Distribution Width 14.5 % (11.5-14.5) Platelet Count 332 x10^3/uL (140-400) Neutrophils (%) (Auto) 83 % (31-73) Lymphocytes (%) (Auto) 7 % (24-48) Monocytes (%) (Auto) 9 % (0-9) Eosinophils (%) (Auto) 1 % (0-3) Basophils (%) (Auto) 0 % (0-3) Neutrophils # (Auto) 13.1 x10^3/uL (1.8-7.7) Lymphocytes # (Auto) 1.1 x10^3/uL (1.0-4.8) Monocytes # (Auto) 1.5 x10^3/uL (0.0-1.1) Eosinophils # (Auto) 0.1 x10^3/uL (0.0-0.7) Basophils # (Auto) 0.1 x10^3/uL (0.0-0.2) Sodium Level 143 mmol/L (136-145) Potassium Level 3.5 mmol/L (3.5-5.1) Chloride Level 108 mmol/L (98-107) Carbon Dioxide Level 29 mmol/L (21-32) Anion Gap 6 (6-14) Blood Urea Nitrogen 73 mg/dL (8-26) Creatinine 1.2 mg/dL (0.7-1.3) Estimated GFR (Cockcroft-Gault) 77.9 BUN/Creatinine Ratio 61 (6-20) Glucose Level 152 mg/dL (70-99) Calcium Level 7.8 mg/dL (8.5-10.1) Phosphorus Level 3.9 mg/dL (2.6-4.7) Magnesium Level 1.9 mg/dL (1.8-2.4) Total Bilirubin 4.8 mg/dL (0.2-1.0) Aspartate Amino Transf (AST/SGOT) 65 U/L (15-37) Alanine Aminotransferase (ALT/SGPT) 73 U/L (16-63) Alkaline Phosphatase 250 U/L (46-116) Total Protein 5.9 g/dL (6.4-8.2) Albumin 1.1 g/dL (3.4-5.0) Albumin/Globulin Ratio 0.2 (1.0-1.7) Triglycerides Level 290 mg/dL (0-150) Test 06/30/19 08:45 06/30/19 08:48 06/30/19 10:57 O2 Saturation 97 % (92-99) Arterial Blood pH 7.45 (7.35-7.45) Arterial Blood pCO2 at Patient Temp 38 mmHg (35-46) Arterial Blood pO2 at Patient Temp 96 mmHg (75-108) Arterial Blood HCO3 26 mmol/L (21-28) Arterial Blood Base Excess 2 mmol/L (-3-3) FiO2 40 Glucose (Fingerstick) 143 mg/dL (70-99) 179 mg/dL (70-99) Problem List Problems Medical Problems: (1) Acute pancreatitis Status: Acute (2) Nausea & vomiting Status: Acute Assessment/Plan supportive measures WILL BEJARANO MD 06/30/19 1240: SURGICAL PROGRESS NOTE Assessment/Plan pt seen daughter at bedside spoke with her and another family member by speaker phone questions answered continue supportive care no new surgical recs MAXIMILIANO GREENBERG APRN Jun 30, 2019 11:51 WILL BEJARANO MD Jun 30, 2019 12:40
--- NOTE | 2019-06-30 12:00 | PDOC ---
Renal-Progress Notes Subjective Notes Notes INTUBATED History of Present Illness Hx of present illness STABLE Vitals Vitals Vital Signs Date Time Temp Pulse Resp B/P (MAP) Pulse Ox O2 Delivery O2 Flow Rate FiO2 06/30/19 11:13 97 Ventilator 06/30/19 10:59 99.9 79 20 100/54 (69) 99.9 Weight Weight [ ] I.O. Intake and Output Intake and Output 06/30/19 07:00 Intake Total 2560.5 ml Output Total 3795 ml Balance -1234.5 ml IV Total 2560.5 ml Output Urine Total 2875 ml Drainage Total 920 ml Labs Labs Laboratory Tests Test 06/29/19 13:23 06/29/19 18:21 06/29/19 20:22 06/29/19 21:29 Glucose (Fingerstick) 195 mg/dL (70-99) 148 mg/dL (70-99) 176 mg/dL (70-99) 215 mg/dL (70-99) Test 06/29/19 23:42 06/30/19 01:36 06/30/19 02:43 06/30/19 03:49 Glucose (Fingerstick) 136 mg/dL (70-99) 103 mg/dL (70-99) 94 mg/dL (70-99) 144 mg/dL (70-99) Test 06/30/19 04:58 06/30/19 05:30 06/30/19 06:06 06/30/19 07:37 Glucose (Fingerstick) 138 mg/dL (70-99) 139 mg/dL (70-99) 149 mg/dL (70-99) White Blood Count 15.8 x10^3/uL (4.0-11.0) Red Blood Count 2.81 x10^6/uL (4.30-5.70) Hemoglobin 8.2 g/dL (13.0-17.5) Hematocrit 25.0 % (39.0-53.0) Mean Corpuscular Volume 89 fL (79-100) Mean Corpuscular Hemoglobin 29 pg (25-35) Mean Corpuscular Hemoglobin Concent 33 g/dL (31-37) Red Cell Distribution Width 14.5 % (11.5-14.5) Platelet Count 332 x10^3/uL (140-400) Neutrophils (%) (Auto) 83 % (31-73) Lymphocytes (%) (Auto) 7 % (24-48) Monocytes (%) (Auto) 9 % (0-9) Eosinophils (%) (Auto) 1 % (0-3) Basophils (%) (Auto) 0 % (0-3) Neutrophils # (Auto) 13.1 x10^3/uL (1.8-7.7) Lymphocytes # (Auto) 1.1 x10^3/uL (1.0-4.8) Monocytes # (Auto) 1.5 x10^3/uL (0.0-1.1) Eosinophils # (Auto) 0.1 x10^3/uL (0.0-0.7) Basophils # (Auto) 0.1 x10^3/uL (0.0-0.2) Sodium Level 143 mmol/L (136-145) Potassium Level 3.5 mmol/L (3.5-5.1) Chloride Level 108 mmol/L (98-107) Carbon Dioxide Level 29 mmol/L (21-32) Anion Gap 6 (6-14) Blood Urea Nitrogen 73 mg/dL (8-26) Creatinine 1.2 mg/dL (0.7-1.3) Estimated GFR (Cockcroft-Gault) 77.9 BUN/Creatinine Ratio 61 (6-20) Glucose Level 152 mg/dL (70-99) Calcium Level 7.8 mg/dL (8.5-10.1) Phosphorus Level 3.9 mg/dL (2.6-4.7) Magnesium Level 1.9 mg/dL (1.8-2.4) Total Bilirubin 4.8 mg/dL (0.2-1.0) Aspartate Amino Transf (AST/SGOT) 65 U/L (15-37) Alanine Aminotransferase (ALT/SGPT) 73 U/L (16-63) Alkaline Phosphatase 250 U/L (46-116) Total Protein 5.9 g/dL (6.4-8.2) Albumin 1.1 g/dL (3.4-5.0) Albumin/Globulin Ratio 0.2 (1.0-1.7) Triglycerides Level 290 mg/dL (0-150) Test 06/30/19 08:45 06/30/19 08:48 06/30/19 10:57 O2 Saturation 97 % (92-99) Arterial Blood pH 7.45 (7.35-7.45) Arterial Blood pCO2 at Patient Temp 38 mmHg (35-46) Arterial Blood pO2 at Patient Temp 96 mmHg (75-108) Arterial Blood HCO3 26 mmol/L (21-28) Arterial Blood Base Excess 2 mmol/L (-3-3) FiO2 40 Glucose (Fingerstick) 143 mg/dL (70-99) 179 mg/dL (70-99) Micro Micro Microbiology 06/26/19 Blood Culture - Preliminary, Resulted NO GROWTH AFTER 4 DAYS 06/23/19 - Final, Complete 06/23/19 - Final, Complete 06/23/19 - Final, Complete 06/23/19 Gram Stain Evaluation - Final, Complete 06/23/19 Sputum Culture - Final, Complete 06/23/19 Sputum Result 1 - Final, Complete 06/22/19 AFB Specimen Processing Tissue - Final, Resulted 06/22/19 Acid Fast Bacilli Culture, Resulted Pending 06/22/19 Gram Stain - Final, Resulted 06/22/19 Fungal Culture, Resulted Pending 06/22/19 Fungal Culture Result 1, Resulted Pending Review of Systems Constitutional: yes: unresponsive Physical Exam General Appearance: no apparent distress Skin: warm Respiratory: decreased breath sounds Heart: S1S2 Abdomen: distension, other (NO BS) Genitourinary: bladder flat Extremities: pulses present Neurology: other (sedated) Assessment Assessment IMP FABIOLA - IMPROVED WITH CR OF 1.4-OFF HD NOW WORSENING LFT'S LEUCOCYTOSIS GB STONE PANCREATITIS ACUTE RESP FAILURE MET ACIDOSIS S/P EXP LAP AND THEN PANCREATIC NECROSECTOMY WITH DRAINS MILD HYPERVOLEMIA PLAN CONT TPN-CHANGES PER PHARMACY CONT ANTIBIOTICS MONITOR RENAL FX IV LASIX DAILY WILL FOLLOW BERE QUIROZ MD Jun 30, 2019 12:00
--- NOTE | 2019-06-30 12:58 | PDOC ---
Objective: Objective: Stable from GI standpoint per nurse. Family wants to know about OG tube. Vital Signs: Vital Signs Date Time Temp Pulse Resp B/P (MAP) Pulse Ox O2 Delivery O2 Flow Rate FiO2 06/30/19 12:41 Mechanical Ventilator 06/30/19 11:58 80 20 95/47 (63) 98 06/30/19 10:59 99.9 99.9 Labs: Laboratory Tests Test 06/29/19 13:23 06/29/19 18:21 06/29/19 20:22 06/29/19 21:29 Glucose (Fingerstick) 195 mg/dL 148 mg/dL 176 mg/dL 215 mg/dL Test 06/29/19 23:42 06/30/19 01:36 06/30/19 02:43 06/30/19 03:49 Glucose (Fingerstick) 136 mg/dL 103 mg/dL 94 mg/dL 144 mg/dL Test 06/30/19 04:58 06/30/19 05:30 06/30/19 06:06 06/30/19 07:37 Glucose (Fingerstick) 138 mg/dL 139 mg/dL 149 mg/dL White Blood Count 15.8 x10^3/uL Red Blood Count 2.81 x10^6/uL Hemoglobin 8.2 g/dL Hematocrit 25.0 % Mean Corpuscular Volume 89 fL Mean Corpuscular Hemoglobin 29 pg Mean Corpuscular Hemoglobin Concent 33 g/dL Red Cell Distribution Width 14.5 % Platelet Count 332 x10^3/uL Neutrophils (%) (Auto) 83 % Lymphocytes (%) (Auto) 7 % Monocytes (%) (Auto) 9 % Eosinophils (%) (Auto) 1 % Basophils (%) (Auto) 0 % Neutrophils # (Auto) 13.1 x10^3/uL Lymphocytes # (Auto) 1.1 x10^3/uL Monocytes # (Auto) 1.5 x10^3/uL Eosinophils # (Auto) 0.1 x10^3/uL Basophils # (Auto) 0.1 x10^3/uL Sodium Level 143 mmol/L Potassium Level 3.5 mmol/L Chloride Level 108 mmol/L Carbon Dioxide Level 29 mmol/L Anion Gap 6 Blood Urea Nitrogen 73 mg/dL Creatinine 1.2 mg/dL Estimated GFR (Cockcroft-Gault) 77.9 BUN/Creatinine Ratio 61 Glucose Level 152 mg/dL Calcium Level 7.8 mg/dL Phosphorus Level 3.9 mg/dL Magnesium Level 1.9 mg/dL Total Bilirubin 4.8 mg/dL Aspartate Amino Transf (AST/SGOT) 65 U/L Alanine Aminotransferase (ALT/SGPT) 73 U/L Alkaline Phosphatase 250 U/L Total Protein 5.9 g/dL Albumin 1.1 g/dL Albumin/Globulin Ratio 0.2 Triglycerides Level 290 mg/dL Test 06/30/19 08:45 06/30/19 08:48 06/30/19 10:57 06/30/19 12:01 O2 Saturation 97 % Arterial Blood pH 7.45 Arterial Blood pCO2 at Patient Temp 38 mmHg Arterial Blood pO2 at Patient Temp 96 mmHg Arterial Blood HCO3 26 mmol/L Arterial Blood Base Excess 2 mmol/L FiO2 40 Glucose (Fingerstick) 143 mg/dL 179 mg/dL 167 mg/dL BLOOD CULTURE Preliminary NO GROWTH AFTER 4 DAYS PE: GEN: ill, OG bilious LUNGS: trach/clear HEART: RRR ABD: some softer and less distended, drains NEURO/PSYCH: sedated A/P: S/p pancreatic necrosectomy, resp failure, fever -- Continue same per GI. Hemodynamically unstable?: No Is patient in severe pain?: No Is NPO status required?: Yes PAXTON ALEXANDER Jun 30, 2019 12:58
--- NOTE | 2019-06-30 13:15 | PDOC ---
[facility] PROGRESS NOTE Chief Complaint Chief Complaint Acute hypoxemic respiratory failure, multifactorial. Status post tracheostomy 5 drains Acute gallstone pancreatitis./ Necrosis Acute kidney failure. improving Metabolic toxic encephalopathy. Hyperkalemia.corrected Metabolic / respiratory acidosis Hypocalcemia. Hepatitis B Hypernatremia LLL small effusion, monitor Exploratory laparotomy, pancreatic necrosectomy, cholecystostomy tube placement, Gastrostomy placement with jejunal extension, tracheostomy placement (specifically 8 shiley cuffed) Specimans Obtained: pancreatic necrosis, saponification, gallstones Findings: diffuse peritonitis, 1.5 liters of ascites, diffuse saponification, viable viscera, mulitiple gallstones, normal liver History of Present Illness History of Present Illness [id number] Patient seen and examined He remains critically ill in the ICU on the vent Discussed with his and his daughter and the RN Chart reviewed [id number] Patient seen and examined in the ICU He remains on the vent with assist control/20/500/40% FiO2 Discussed with RN Chart reviewed He is still critically ill [id number] Patient seen and examined in the ICU He remains critically ill intubated Vent: ac/ 20 /500/ 40% Chart reviewed Discussed with RN [id number] Patient seen and examined in the ICU He remains intubated Dr. Mcbride is here with me Discussed with RN Discussed with patient's brother Chart reviewed Patient remains mechanically intubated and sedated Extremely critically ill [id number] Patient seen and examined in the ICU He remains intubated and now on multiple drips Vent settings as follows assist-control/18/500/40% Discussed with RN Discussed with Dr. Smyth Chart reviewed He is critically ill [id number] Patient seen and examined in the ICU He is on the ventilator and sedated and paralyzed Discussed with RN Discussed with his Chart reviewed Exploratory laparotomy, pancreatic necrosectomy, cholecystostomy tube placement, Gastrostomy placement with jejunal extension, tracheostomy placement (specifically 8 shiley cuffed) 06/24/2019 Pt seen and examined in the ICU. Discussed with RN, Chart reviewed. Pt was sedated and currently being tried on room air. Ventilator setting as follows: AC/18/500/40% with peep of 5, but not in use during observation. Currently has [address] Vitals/I&O Vitals/I&O: Vital Signs Date Time Temp Pulse Resp B/P (MAP) Pulse Ox O2 Delivery O2 Flow Rate FiO2 06/30/19 13:02 76 20 91/52 (65) 98 Ventilator 06/30/19 10:59 99.9 99.9 I & O 06/29/19 06/29/19 06/30/19 15:00 23:00 07:00 Intake Total 1000 ml 1560.5 ml Output Total 1375 ml 1165 ml 1255 ml Balance -1375 ml -165 ml 305.5 ml Physical Exam Physical Exam: GENERAL: Sedated, trached/vent HEENT: Pupils equal, OGT, NECK: Trach/vent LUNGS: Diminished aeration bases HEART: S1, S2, regular, no murmurs. ABDOMEN: Distended, fairly tight, bowel sounds present. drains x 4, wound vac in place : [place] EXTREMITIES: Trace edema, no cyanosis. SCDs bilaterally SKIN: Warm, dry. 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 VP TALENT MANAGEMENT: Sedated RIJ & RIJ/HD catheter (06/19) General: Other (sedated ) Heart: Regular rate, Normal S1, Normal S2, No murmurs, Gallops Lungs: Crackles Abdomen: Soft, Other (drains in place) Extremities: No clubbing, No cyanosis, No edema, Normal pulses, No tende rness/swelling Skin: No significant lesion Labs Labs: Laboratory Tests Test 06/29/19 13:23 06/29/19 18:21 06/29/19 20:22 06/29/19 21:29 Glucose (Fingerstick) 195 mg/dL (70-99) 148 mg/dL (70-99) 176 mg/dL (70-99) 215 mg/dL (70-99) Test 06/29/19 23:42 06/30/19 01:36 06/30/19 02:43 06/30/19 03:49 Glucose (Fingerstick) 136 mg/dL (70-99) 103 mg/dL (70-99) 94 mg/dL (70-99) 144 mg/dL (70-99) Test 06/30/19 04:58 06/30/19 05:30 06/30/19 06:06 06/30/19 07:37 Glucose (Fingerstick) 138 mg/dL (70-99) 139 mg/dL (70-99) 149 mg/dL (70-99) White Blood Count 15.8 x10^3/uL (4.0-11.0) Red Blood Count 2.81 x10^6/uL (4.30-5.70) Hemoglobin 8.2 g/dL (13.0-17.5) Hematocrit 25.0 % (39.0-53.0) Mean Corpuscular Volume 89 fL (79-100) Mean Corpuscular Hemoglobin 29 pg (25-35) Mean Corpuscular Hemoglobin Concent 33 g/dL (31-37) Red Cell Distribution Width 14.5 % (11.5-14.5) Platelet Count 332 x10^3/uL (140-400) Neutrophils (%) (Auto) 83 % (31-73) Lymphocytes (%) (Auto) 7 % (24-48) Monocytes (%) (Auto) 9 % (0-9) Eosinophils (%) (Auto) 1 % (0-3) Basophils (%) (Auto) 0 % (0-3) Neutrophils # (Auto) 13.1 x10^3/uL (1.8-7.7) Lymphocytes # (Auto) 1.1 x10^3/uL (1.0-4.8) Monocytes # (Auto) 1.5 x10^3/uL (0.0-1.1) Eosinophils # (Auto) 0.1 x10^3/uL (0.0-0.7) Basophils # (Auto) 0.1 x10^3/uL (0.0-0.2) Sodium Level 143 mmol/L (136-145) Potassium Level 3.5 mmol/L (3.5-5.1) Chloride Level 108 mmol/L (98-107) Carbon Dioxide Level 29 mmol/L (21-32) Anion Gap 6 (6-14) Blood Urea Nitrogen 73 mg/dL (8-26) Creatinine 1.2 mg/dL (0.7-1.3) Estimated GFR (Cockcroft-Gault) 77.9 BUN/Creatinine Ratio 61 (6-20) Glucose Level 152 mg/dL (70-99) Calcium Level 7.8 mg/dL (8.5-10.1) Phosphorus Level 3.9 mg/dL (2.6-4.7) Magnesium Level 1.9 mg/dL (1.8-2.4) Total Bilirubin 4.8 mg/dL (0.2-1.0) Aspartate Amino Transf (AST/SGOT) 65 U/L (15-37) Alanine Aminotransferase (ALT/SGPT) 73 U/L (16-63) Alkaline Phosphatase 250 U/L (46-116) Total Protein 5.9 g/dL (6.4-8.2) Albumin 1.1 g/dL (3.4-5.0) Albumin/Globulin Ratio 0.2 (1.0-1.7) Triglycerides Level 290 mg/dL (0-150) Test 06/30/19 08:45 06/30/19 08:48 06/30/19 10:57 06/30/19 12:01 O2 Saturation 97 % (92-99) Arterial Blood pH 7.45 (7.35-7.45) Arterial Blood pCO2 at Patient Temp 38 mmHg (35-46) Arterial Blood pO2 at Patient Temp 96 mmHg (75-108) Arterial Blood HCO3 26 mmol/L (21-28) Arterial Blood Base Excess 2 mmol/L (-3-3) FiO2 40 Glucose (Fingerstick) 143 mg/dL (70-99) 179 mg/dL (70-99) 167 mg/dL (70-99) Test 06/30/19 13:04 Glucose (Fingerstick) 150 mg/dL (70-99) Review of Systems Review of Systems: Unable to obtain Assessment and Plan Assessmemt and Plan Problems Medical Problems: (1) Acute pancreatitis Status: Acute (2) Nausea & vomiting Status: Acute Acute hypoxemic respiratory failure, multifactorial. Status post tracheostomy 5 drains Acute gallstone pancreatitis./ Necrosis Acute kidney failure. improving Metabolic toxic encephalopathy. Hyperkalemia.corrected Metabolic / respiratory acidosis Hypocalcemia. Hepatitis B Hypernatremia LLL small effusion, monitor Exploratory laparotomy, pancreatic necrosectomy, cholecystostomy tube placement, Gastrostomy placement with jejunal extension, tracheostomy placement (specifically 8 shiley cuffed) Plan: Continue ICU monitoring Continue to monitor intraabdominal pressures DVT prophylaxis appreciate GI consult Vent weaning IV antibiotics IV paralytics and IV sedatives Trend labs Wound care We are managing 5 drains He remains critically ill Prognosis guarded Total time 32 minutes Comment Review of Relevant I have reviewed the following items alexandra (where applicable) has been applied. Medications: Current Medications Medications (Trade) Dose Ordered Sig/Jesse Route PRN Reason Start Time Stop Time Status Last Admin Dose Admin Potassium Phosphate 10 mmol/ Magnesium Sulfate 5 meq/Calcium Gluconate 15 meq/ Multivitamins 10 ml/Chromium/ Copper/Manganese/ Seleni/Zn 0.5 ml/ Potassium Acetate 20 meq/Total Parenteral Nutrition/Amino Acids/Dextrose/ Fat Emulsion Intravenous 1,920 ml @ 80 mls/hr TPN CONT IV 06/29/19 22:00 06/30/19 21:59 06/29/19 21:32 Hemodynamically unstable?: No Is patient in severe pain?: No Is NPO status required?: Yes JUSTIN WORKMAN III DO Jun 30, 2019 13:15
[2019-06-30] MEDS: TPN PER PHARMACY MC PRN (13:18)
--- NOTE | 2019-06-30 13:20 | NUR ---
Pharmacy TPN Dosing Note S: CHRISTOPHER NEWSOME is a 49 year old M Currently receiving Central Continuous TPN started 06/19/19 B:Pertinent PMH: PANCREATITIS Height: 5 feet, 9 inches Weight: 108.0 kg Current diet: NPO LABS: Sodium: 143 Potassium: 3.5 Chloride: 108 Calcium: 7.8 Corrected Calcium: 10.12 Magnesium: 1.9 CO2: 29 SCr: 1.2 Glucose: 138-152 Albumin: 1.1 AST: 55 ALT: 49 TPN FORMULA: TPN TYPE: Central Continuous AMINO ACIDS: 145 gm DEXTROSE: 200 gm LIPIDS: - gm SODIUM CHLORIDE: mEq SODIUM ACETATE: mEq SODIUM PHOSPHATE: 10 mmol POTASSIUM CHLORIDE: mEq POTASSIUM ACETATE: 20 mEq POTASSIUM PHOSPHATE: - mmol MAGNESIUM: 5 mEq CALCIUM: 15 mEq INSULIN: - units MULTIPLE VITAMIN: 10 ml TRACE ELEMENTS: MTE 5 0.5 ml(s) TPN PLAN: Remove lipid while propofol infusing per dietary. K normal after recent increase; no change to this. Other labs stable. BMP in AM. R: Continue TPN ABOVE. Will monitor electrolytes, glucose, and tolerance to TPN. R[facility]EE [facility], 06/30/19 1329
[2019-06-30] MEDS: fentaNYL HIGH DOSE PCA 55 ML IV PRN (18:05)
[2019-06-30] MEDS: INSULIN REGULAR VIAL 100 UNIT in IV NORMAL SALINE 100ML 100 ML IV PRN (20:05)
[2019-06-30] MEDS: INSULIN GLARGINE SYRINGE. SQ SCH (20:47)
[2019-06-30] MEDS ORDERED: TOTAL PARENTERAL NUTRITION IV SCH ×8 (22:00)
[2019-06-30] MEDS ORDERED: AMINO ACID IV SCH ×8 (22:00)
[2019-06-30] MEDS ORDERED: DEXTROSE 70% IV SCH ×8 (22:00)
[2019-06-30] MEDS ORDERED: [UNRECOGNIZED DRUG - OTHER] IV SCH ×8 (22:00)
[2019-07-01] VITALS (24 sets, daily range): BP systolic 93–121; BP diastolic 49–86
[2019-07-01] MEDS: DEXMEDETOMIDINE 400 MCG in IV NORMAL SALINE 100ML 96 ML IV PRN ×9 (00:51→22:08)
[2019-07-01] MEDS: PROPOFOL 100 ML IV PRN ×5 (01:41→22:11)
[2019-07-01] MEDS: INSULIN LISPRO 300 UNITS/3 ML VIAL. SQ SCH ×4 (04:00→16:00)
[2019-07-01] MEDS: ENOXAPARIN 40 MG/0.4 ML SYRINGE. SQ SCH (05:49)
[2019-07-01] MEDS: MEROPENEM 500 MG in IV NORMAL SALINE 50ML 50 ML IV SCH ×3 (05:49→17:24)
[2019-07-01] MEDS: PANTOPRAZOLE IV PUSH 40 MG VIAL. IVP SCH ×2 (05:49→17:26)
[2019-07-01 06:29] LABS: CREATININE 1.1 mg/dL (0.7-1.3); GFR 86.1; POTASSIUM 4.2 mmol/L (3.5-5.1)
[2019-07-01] MEDS: ALBUTEROL SULFATE 2.5 MG/3 ML NEBU. NEB SCH ×4 (07:51→20:01)
[2019-07-01 08:03] LABS: BASE EXCESS ABG 2 mmol/L (-3-3); HCO3 ABG 26 mmol/L (21-28); PCO2 ABG 41 mmHg (35-46); PO2 ABG 109 mmHg (75-108); SAT O2 ABG 97 % (92-99)
--- NOTE | 2019-07-01 08:16 | PDOC ---
PULMONARY PROGRESS NOTES Subjective SEDATED ON AC MODE Vitals Vital Signs Date Time Temp Pulse Resp B/P (MAP) Pulse Ox O2 Delivery O2 Flow Rate FiO2 07/01/19 07:51 100 Ventilator 07/01/19 07:23 99.1 74 20 93/56 (68) 99.1 06/30/19 18:44 3.0 HEENT: Other (nc at perrl nose clear, neck, trach site ok, no lad, no thyromegaly) Lungs: Crackles Cardiovascular: S1, S2 Abdomen: Other (/distended/firm ) Extremities: No Edema Skin: Warm Labs Laboratory Tests Test 06/29/19 11:10 06/29/19 11:21 06/29/19 13:23 06/29/19 18:21 Urine Collection Type Unknown Urine Color Demi Urine Clarity Clear Urine pH 6.0 (<5.0-8.0) Urine Specific [place] 1.015 (1.000-1.030) Urine Protein Negative mg/dL (NEG-TRACE) Urine Glucose (UA) Negative mg/dL (NEG) Urine Ketones (Stick) Negative mg/dL (NEG) Urine Blood Negative (NEG) Urine Nitrite Negative (NEG) Urine Bilirubin Small (NEG) Urine Urobilinogen Dipstick 0.2 mg/dL (0.2 mg/dL) Urine Leukocyte Esterase Negative (NEG) Urine RBC 1-2 /HPF (0-2) Urine WBC 1-4 /HPF (0-4) Urine Squamous Epithelial Cells Few /LPF Urine Amorphous Sediment Present /HPF Urine Bacteria 0 /HPF (0-FEW) Urine Hyaline Casts Moderate /HPF Urine Mucus Mod /LPF Glucose (Fingerstick) 207 mg/dL (70-99) 195 mg/dL (70-99) 148 mg/dL (70-99) Test 06/29/19 20:22 06/29/19 21:29 06/29/19 23:42 06/30/19 01:36 Glucose (Fingerstick) 176 mg/dL (70-99) 215 mg/dL (70-99) 136 mg/dL (70-99) 103 mg/dL (70-99) Test 06/30/19 02:43 06/30/19 03:49 06/30/19 04:58 06/30/19 05:30 Glucose (Fingerstick) 94 mg/dL (70-99) 144 mg/dL (70-99) 138 mg/dL (70-99) White Blood Count 15.8 x10^3/uL (4.0-11.0) Red Blood Count 2.81 x10^6/uL (4.30-5.70) Hemoglobin 8.2 g/dL (13.0-17.5) Hematocrit 25.0 % (39.0-53.0) Mean Corpuscular Volume 89 fL (79-100) Mean Corpuscular Hemoglobin 29 pg (25-35) Mean Corpuscular Hemoglobin Concent 33 g/dL (31-37) Red Cell Distribution Width 14.5 % (11.5-14.5) Platelet Count 332 x10^3/uL (140-400) Neutrophils (%) (Auto) 83 % (31-73) Lymphocytes (%) (Auto) 7 % (24-48) Monocytes (%) (Auto) 9 % (0-9) Eosinophils (%) (Auto) 1 % (0-3) Basophils (%) (Auto) 0 % (0-3) Neutrophils # (Auto) 13.1 x10^3/uL (1.8-7.7) Lymphocytes # (Auto) 1.1 x10^3/uL (1.0-4.8) Monocytes # (Auto) 1.5 x10^3/uL (0.0-1.1) Eosinophils # (Auto) 0.1 x10^3/uL (0.0-0.7) Basophils # (Auto) 0.1 x10^3/uL (0.0-0.2) Sodium Level 143 mmol/L (136-145) Potassium Level 3.5 mmol/L (3.5-5.1) Chloride Level 108 mmol/L (98-107) Carbon Dioxide Level 29 mmol/L (21-32) Anion Gap 6 (6-14) Blood Urea Nitrogen 73 mg/dL (8-26) Creatinine 1.2 mg/dL (0.7-1.3) Estimated GFR (Cockcroft-Gault) 77.9 BUN/Creatinine Ratio 61 (6-20) Glucose Level 152 mg/dL (70-99) Calcium Level 7.8 mg/dL (8.5-10.1) Phosphorus Level 3.9 mg/dL (2.6-4.7) Magnesium Level 1.9 mg/dL (1.8-2.4) Total Bilirubin 4.8 mg/dL (0.2-1.0) Aspartate Amino Transf (AST/SGOT) 65 U/L (15-37) Alanine Aminotransferase (ALT/SGPT) 73 U/L (16-63) Alkaline Phosphatase 250 U/L (46-116) Total Protein 5.9 g/dL (6.4-8.2) Albumin 1.1 g/dL (3.4-5.0) Albumin/Globulin Ratio 0.2 (1.0-1.7) Triglycerides Level 290 mg/dL (0-150) Test 06/30/19 06:06 06/30/19 07:37 06/30/19 08:45 06/30/19 08:48 Glucose (Fingerstick) 139 mg/dL (70-99) 149 mg/dL (70-99) 143 mg/dL (70-99) O2 Saturation 97 % (92-99) Arterial Blood pH 7.45 (7.35-7.45) Arterial Blood pCO2 at Patient Temp 38 mmHg (35-46) Arterial Blood pO2 at Patient Temp 96 mmHg (75-108) Arterial Blood HCO3 26 mmol/L (21-28) Arterial Blood Base Excess 2 mmol/L (-3-3) FiO2 40 Test 06/30/19 10:57 06/30/19 12:01 06/30/19 13:04 06/30/19 14:11 Glucose (Fingerstick) 179 mg/dL (70-99) 167 mg/dL (70-99) 150 mg/dL (70-99) 139 mg/dL (70-99) Test 06/30/19 15:19 06/30/19 16:17 06/30/19 17:21 06/30/19 18:16 Glucose (Fingerstick) 126 mg/dL (70-99) 133 mg/dL (70-99) 132 mg/dL (70-99) 141 mg/dL (70-99) Test 06/30/19 19:26 06/30/19 20:08 06/30/19 22:25 07/01/19 00:24 Glucose (Fingerstick) 146 mg/dL (70-99) 131 mg/dL (70-99) 146 mg/dL (70-99) 143 mg/dL (70-99) Test 07/01/19 02:27 07/01/19 03:31 07/01/19 04:32 07/01/19 05:50 Glucose (Fingerstick) 118 mg/dL (70-99) 127 mg/dL (70-99) 126 mg/dL (70-99) Sodium Level 148 mmol/L (136-145) Potassium Level 4.2 mmol/L (3.5-5.1) Chloride Level 111 mmol/L (98-107) Carbon Dioxide Level 29 mmol/L (21-32) Anion Gap 8 (6-14) Blood Urea Nitrogen 68 mg/dL (8-26) Creatinine 1.1 mg/dL (0.7-1.3) Estimated GFR (Cockcroft-Gault) 86.1 Glucose Level 156 mg/dL (70-99) Calcium Level 8.0 mg/dL (8.5-10.1) Test 07/01/19 06:10 07/01/19 07:28 Glucose (Fingerstick) 142 mg/dL (70-99) 158 mg/dL (70-99) Laboratory Tests Test 06/30/19 08:45 06/30/19 08:48 06/30/19 10:57 06/30/19 12:01 O2 Saturation 97 % (92-99) Arterial Blood pH 7.45 (7.35-7.45) Arterial Blood pCO2 at Patient Temp 38 mmHg (35-46) Arterial Blood pO2 at Patient Temp 96 mmHg (75-108) Arterial Blood HCO3 26 mmol/L (21-28) Arterial Blood Base Excess 2 mmol/L (-3-3) FiO2 40 Glucose (Fingerstick) 143 mg/dL (70-99) 179 mg/dL (70-99) 167 mg/dL (70-99) Test 06/30/19 13:04 06/30/19 14:11 06/30/19 15:19 06/30/19 16:17 Glucose (Fingerstick) 150 mg/dL (70-99) 139 mg/dL (70-99) 126 mg/dL (70-99) 133 mg/dL (70-99) Test 06/30/19 17:21 06/30/19 18:16 06/30/19 19:26 06/30/19 20:08 Glucose (Fingerstick) 132 mg/dL (70-99) 141 mg/dL (70-99) 146 mg/dL (70-99) 131 mg/dL (70-99) Test 06/30/19 22:25 07/01/19 00:24 07/01/19 02:27 07/01/19 03:31 Glucose (Fingerstick) 146 mg/dL (70-99) 143 mg/dL (70-99) 118 mg/dL (70-99) 127 mg/dL (70-99) Test 07/01/19 04:32 07/01/19 05:50 07/01/19 06:10 07/01/19 07:28 Glucose (Fingerstick) 126 mg/dL (70-99) 142 mg/dL (70-99) 158 mg/dL (70-99) Sodium Level 148 mmol/L (136-145) Potassium Level 4.2 mmol/L (3.5-5.1) Chloride Level 111 mmol/L (98-107) Carbon Dioxide Level 29 mmol/L (21-32) Anion Gap 8 (6-14) Blood Urea Nitrogen 68 mg/dL (8-26) Creatinine 1.1 mg/dL (0.7-1.3) Estimated GFR (Cockcroft-Gault) 86.1 Glucose Level 156 mg/dL (70-99) Calcium Level 8.0 mg/dL (8.5-10.1) Medications Active Scripts Medications Dose Route/Sig Max Daily Dose Days Date Category Comments CXR NO CHANGE Impression . IMPRESSION: 1. Acute hypoxemic respiratory failure, multifactorial. 2. Acute gallstone pancreatitis./ Necrosis. s/p Exploratory laparotomy, pancreatic necrosectomy, cholecystostomy tube placement, Gastrostomy placement with jejunal extension, tracheostomy placement (specifically 8 shiley cuffed) 06/21 3. Acute kidney failure. improving 4. Metabolic toxic encephalopathy. 5. Hyperkalemia.corrected 6. Metabolic / respiratory acidosis 7. Hypocalcemia. 8. POSSIBLE ABD COMPARTMENT SYNDROME , s/p Exp lap 9. HEP B S POSITIVE 10. Hypernatremia, resolved 11. LLL small effusion, monitor Poor inspiratory effort with mild hazy infiltrates at the left lower lung field with a small left pleural effusion. Plan . NOT READY FOR TRIAL AC MODE FOR NOW WILL NEED TO FIND A HAPPY MEDIUM FOR SEDATION AND START TO WEAN ANTIBX PER ID NUTRITION PER SURGERY PRN suctioning, BD DESTINI MATOS MD Jul 01, 2019 08:16
--- NOTE | 2019-07-01 08:17 | RAD ---
PORTABLE CHEST 1V INDICATION: Respiratory failure. COMPARISON STUDY: 06/30/2019. FINDINGS: Life Support Devices: Stable tracheostomy, enteric tube, right IJ central venous catheter, and right IJ dual-lumen catheter. Lungs: Low lung volume. Stable left greater than right basilar opacities. Stable pulmonary vasculature. Pleura: Stable small left greater than right pleural effusions. Heart and Mediastinum: Stable cardiomediastinal silhouette and great vessels. IMPRESSION: 1. Stable life support devices. 2. Stable left greater than right basilar opacities. 3. Stable small left greater than right pleural effusions. Electronically signed by: Charlie Mcduffie MD (07/01/2019 8:14 AM) [id number]
[2019-07-01 08:35] LABS: FIO2 ABG 40
[2019-07-01 08:58] LABS: BASO # 0.1 x10^3/uL (0.0-0.2); BASO % 0 % (0-3); EOS # 0.1 x10^3/uL (0.0-0.7); EOS % 1 % (0-3); HEMATOCRIT 24.5 % (39.0-53.0); HEMOGLOBIN 7.9 g/dL (13.0-17.5); LYMPH # 1.4 x10^3/uL (1.0-4.8); LYMPH % 9 % (24-48); MEAN CORPUSCULAR HEMOGLOBIN 29 pg (25-35); MEAN CORPUSCULAR HGB CONC 32 g/dL (31-37); MEAN CORPUSCULAR VOLUME 90 fL (79-100); MONO # 1.4 x10^3/uL (0.0-1.1); MONO % 9 % (0-9); NEUT # 12.7 x10^3/uL (1.8-7.7); NEUT % 81 % (31-73); PLATELET COUNT 355 x10^3/uL (140-400); RED BLOOD COUNT 2.74 x10^6/uL (4.30-5.70); RED CELL DISTRIBUTION WIDTH 14.6 % (11.5-14.5); WHITE BLOOD COUNT 15.7 x10^3/uL (4.0-11.0)
[2019-07-01] MEDS: CHLORHEXIDINE 0.12% 15 ML MOUTHWASH. MM SCH (09:00)
--- NOTE | 2019-07-01 09:07 | PDOC ---
Infectious Disease Note Subjective: Subjective Sedated, on vent on 40% Fio2 TPN fever improved Vital Signs: Vital Signs Vital Signs Date Time Temp Pulse Resp B/P (MAP) Pulse Ox O2 Delivery O2 Flow Rate FiO2 07/01/19 08:17 77 20 95/55 (68) 100 Ventilator 07/01/19 07:23 99.1 99.1 06/30/19 18:44 3.0 Physical Exam: PHYSICAL EXAM GENERAL: Sedated, trached/vent HEENT: Pupils equal, OGT, NECK: Trach/vent LUNGS: Diminished aeration bases HEART: S1, S2, regular, no murmurs. ABDOMEN: Distended, fairly tight, bowel sounds present. drains x 4, wound vac in place : [place] EXTREMITIES: Trace edema, no cyanosis. SCDs bilaterally SKIN: Warm, dry. 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) Medications: Inpatient Meds: Current Medications Medications (Trade) Dose Ordered Sig/Jesse Start Time Stop Time Status Last Admin Dose Admin Acetaminophen (Tylenol Supp) 650 mg PRN Q6HRS PRN 06/14/19 20:00 06/29/19 20:31 650 MG Albumin Human 500 ml @ As Directed STK-MED ONCE 06/22/19 13:25 06/22/19 13:25 DC Albuterol Sulfate (Ventolin Neb Soln) 2.5 mg RTQID 06/22/19 08:00 07/01/19 07:51 2.5 MG Amino Acids/ Electrolytes/ Dextrose 1,000 ml @ 80 mls/hr [id number] 06/12/19 10:15 06/18/19 13:50 DC Amino Acids/ Glycerin/ Electrolytes 1,000 ml @ 80 mls/hr [id number] 06/12/19 10:00 UNV Atropine Sulfate (ATROPINE 0.5mg SYRINGE) 0.5 mg PRN Q5MIN PRN 06/26/19 19:00 Calcium Chloride 2000 mg/Sodium Chloride 120 ml @ 240 mls/hr PRN QID PRN 06/14/19 10:15 06/15/19 09:58 DC 06/15/19 08:32 240 MLS/HR Calcium Gluconate (Calcium Gluconate) 1,000 mg 1X ONCE 06/22/19 19:45 06/22/19 20:15 DC Calcium Gluconate 1000 mg/Sodium Chloride 110 ml @ 220 mls/hr 1X ONCE 06/22/19 20:15 06/22/19 20:44 DC 06/22/19 20:36 220 MLS/HR Calcium Gluconate 5000 mg/Sodium Chloride 250 ml @ 28.782 mls/ hr CONT PRN 06/15/19 09:30 06/18/19 13:50 DC 06/18/19 06:12 28.782 MLS/HR Calcium Gluconate 01745 mg/Sodium Chloride 494 ml @ 4.051 mls/ hr CONT PRN 06/15/19 09:30 06/15/19 09:23 DC Cefoxitin Sodium (Mefoxin) 2 gm 1X PREOP ONCE 06/22/19 11:30 06/22/19 11:31 DC 06/22/19 11:37 2 GM Cellulose (Surgicel Hemostat 4x8) 1 each STK-MED ONCE 06/22/19 12:46 06/22/19 14:25 DC 06/22/19 12:46 1 EACH Chlorhexidine Gluconate (Peridex) 15 ml BID 06/14/19 21:00 06/30/19 20:47 15 ML Dexamethasone Sodium Phosphate (Decadron) 4 mg STK-MED ONCE 06/22/19 11:45 06/22/19 11:45 DC Dexmedetomidine HCl 400 mcg/ Sodium Chloride 100 ml @ 0 mls/hr CONT PRN 06/26/19 19:00 07/01/19 06:20 38.6 MLS/HR Dextrose (Dextrose 50%-Water Syringe) 25 gm 1X ONCE 06/22/19 19:45 06/22/19 19:57 DC 06/22/19 20:37 25 GM Enoxaparin Sodium (Lovenox 40mg Syringe) 40 mg Q24H 06/23/19 06:00 07/01/19 05:49 40 MG Etomidate (Amidate) 14 mg 1X ONCE 06/14/19 13:00 06/14/19 13:01 DC 06/14/19 12:59 14 MG Fentanyl Citrate 55 ml @ 1.98 mls/hr CONT PRN 06/24/19 11:45 06/30/19 18:05 1.98 MLS/HR Fentanyl Citrate (Fentanyl 2ml Vial) 100 mcg 1X ONCE 06/14/19 13:00 06/14/19 13:01 DC 06/14/19 12:58 100 MCG Fentanyl Citrate (Fentanyl 600 Mcg/30 ml ENGRAVER BLOCK) 600 mcg STK-MED ONCE 06/15/19 05:30 06/18/19 12:07 DC Furosemide (Lasix) 40 mg DAILY 06/27/19 12:00 06/30/19 09:34 40 MG Hydralazine HCl (Apresoline Inj) 10 mg PRN Q4HRS PRN 06/19/19 11:45 06/26/19 15:43 10 MG Hydromorphone HCl (Dilaudid) 1 mg PRN Q2HRS PRN 06/11/19 12:00 06/29/19 07:35 1 MG Info (CONTRAST GIVEN -- Rx MONITORING) 1 each PRN DAILY PRN 06/22/19 08:15 06/24/19 08:14 DC Info (PHARMACY MONITORING -- do not chart) 1 each PRN DAILY PRN 06/14/19 09:00 06/14/19 09:06 DC Info (Tpn Per Pharmacy) 1 each PRN DAILY PRN 06/19/19 11:15 06/30/19 13:18 1 EACH Insulin Glargine (Lantus Syringe) 20 unit QHS 06/21/19 21:00 06/30/19 20:47 20 UNIT Insulin Human Lispro (HumaLOG) 0-7 UNITS Q4HRS 06/15/19 00:15 06/23/19 08:05 7 UNITS Insulin Human Regular (HumuLIN R VIAL) 10 unit 1X ONCE 06/22/19 19:45 06/22/19 19:57 DC 06/22/19 20:45 10 UNIT Insulin Human Regular 100 unit/ Sodium Chloride 101 ml @ 0 mls/hr CONT PRN 06/23/19 12:15 06/30/19 20:05 4.343 MLS/HR Iohexol (Omnipaque 240 Mg/ml) 30 ml 1X ONCE 06/22/19 08:00 06/22/19 08:05 DC Iohexol (Omnipaque 300 Mg/ml) 75 ml 1X ONCE 06/22/19 08:00 06/22/19 08:01 Cancel Iohexol (Omnipaque 350 Mg/ml) 100 ml 1X ONCE 06/11/19 04:45 06/11/19 04:46 DC 06/11/19 05:01 100 ML Labetalol HCl (Normodyne Iv Push) 20 mg PRN Q2HR PRN 06/19/19 11:45 06/26/19 14:44 20 MG Lidocaine HCl (Buffered Lidocaine 1%) 6 ml 1X ONCE 06/13/19 09:30 06/13/19 09:31 DC 06/13/19 09:23 6 ML Lidocaine HCl (Lidocaine Pf 2% Vial) 5 ml STK-MED ONCE 06/14/19 12:00 06/17/19 10:37 DC Linezolid/Dextrose 300 ml @ 300 mls/hr Q12HR 06/14/19 21:00 06/30/19 20:47 300 MLS/HR Lorazepam (Ativan Inj) 1 mg PRN Q6HRS PRN 06/11/19 18:15 06/29/19 07:48 1 MG Magnesium Sulfate 50 ml @ 25 mls/hr PRN DAILY PRN 06/14/19 10:30 Meropenem 500 mg/ Sodium Chloride 50 ml @ 100 mls/hr Q6HRS 06/18/19 07:30 07/01/19 05:49 100 MLS/HR Metoprolol Tartrate (Lopressor Vial) 5 mg 1X ONCE 06/18/19 12:15 06/18/19 12:16 DC Micafungin Sodium 100 mg/Dextrose 100 ml @ 100 mls/hr Q24H 06/20/19 09:00 06/30/19 09:32 100 MLS/HR Midazolam HCl (Versed) 5 mg 1X ONCE 06/14/19 13:00 06/14/19 13:01 DC 06/14/19 12:59 5 MG Midazolam HCl 50 mg/Sodium Chloride 50 ml @ 0 mls/hr CONT PRN 06/14/19 12:45 06/26/19 19:35 2 MLS/HR Morphine Sulfate (Morphine Sulfate) 1 mg PRN Q1HR PRN 06/22/19 15:45 Naloxone HCl (Narcan) 0.4 mg PRN Q2MIN PRN 06/22/19 15:45 Nicardipine HCl 50 mg/Sodium Chloride 250 ml @ 25 mls/hr CONT PRN 06/18/19 11:45 Norepinephrine Bitartrate 8 mg/ Dextrose 258 ml @ 20.027 mls/ hr CONT PRN 06/14/19 10:30 06/14/19 10:31 20.027 MLS/HR Nystatin (Nystop) 1 devorah PRN QID PRN 06/11/19 23:15 06/11/19 23:19 1 DEVORAH Ondansetron HCl (Zofran) 4 mg PRN Q6HRS PRN 06/22/19 15:45 Pantoprazole Sodium (PROTONIX VIAL for IV PUSH) 40 mg [id number] 06/13/19 21:00 07/01/19 05:49 40 MG Piperacillin Sod/ Tazobactam Sod (Zosyn Per Pharmacy) 1 each PRN DAILY PRN 06/12/19 13:15 06/12/19 19:16 DC Piperacillin Sod/ Tazobactam Sod 2.25 gm/Sodium Chloride 50 ml @ 100 mls/hr Q6HRS 06/12/19 13:30 06/12/19 19:15 DC 06/12/19 13:48 100 MLS/HR Potassium Chloride/Water 100 ml @ 50 mls/hr 1X ONCE 06/29/19 09:00 06/29/19 10:59 DC 06/29/19 08:57 50 MLS/HR Potassium Phosphate 10 mmol/ Magnesium Sulfate 5 meq/Calcium Gluconate 15 meq/ Multivitamins 10 ml/Chromium/ Copper/Manganese/ Seleni/Zn 0.5 ml/ Potassium Acetate 20 meq/Total Parenteral Nutrition/Amino Acids/Dextrose 1,920 ml @ 80 mls/hr TPN CONT 06/30/19 22:00 07/01/19 21:59 06/30/19 21:38 80 MLS/HR Potassium Phosphate 10 mmol/ Magnesium Sulfate 5 meq/Calcium Gluconate 15 meq/ Multivitamins 10 ml/Chromium/ Copper/Manganese/ Seleni/Zn 0.5 ml/ Potassium Acetate 20 meq/Total Parenteral Nutrition/Amino Acids/Dextrose/ Fat Emulsion Intravenous 1,920 ml @ 80 mls/hr TPN CONT 06/29/19 22:00 06/30/19 21:59 DC 06/29/19 21:32 80 MLS/HR Potassium Phosphate 10 mmol/ Magnesium Sulfate 5 meq/Calcium Gluconate 15 meq/ Multivitamins 10 ml/Chromium/ Copper/Manganese/ Seleni/Zn 0.5 ml/ Total Parenteral Nutrition/Amino Acids/Dextrose/ Fat Emulsion Intravenous 1,920 ml @ 80 mls/hr TPN CONT 06/27/19 22:00 06/28/19 21:59 DC 06/27/19 21:38 80 MLS/HR Potassium Phosphate 13.6 mmol/Calcium Gluconate 20 meq/ Multivitamins 10 ml/Chromium/ Copper/Manganese/ Seleni/Zn 0.5 ml/ Insulin Human Regular 10 unit/ Total Parenteral Nutrition/Amino Acids/Dextrose/ Fat Emulsion Intravenous 1,920 ml @ 80 mls/hr TPN CONT 06/21/19 22:00 06/22/19 21:59 DC 06/21/19 21:31 80 MLS/HR Potassium Phosphate 13.6 mmol/Magnesium Sulfate 10 meq/ Calcium Gluconate 20 meq/ Multivitamins 10 ml/Chromium/ Copper/Manganese/ Seleni/Zn 0.5 ml/ Total Parenteral Nutrition/Amino Acids/Dextrose/ Fat Emulsion Intravenous 1,920 ml @ 80 mls/hr TPN CONT 06/19/19 22:00 06/20/19 21:59 DC 06/19/19 21:31 80 MLS/HR Potassium Phosphate 13.6 mmol/Magnesium Sulfate 5 meq/ Calcium Gluconate 20 meq/ Multivitamins 10 ml/Chromium/ Copper/Manganese/ Seleni/Zn 0.5 ml/ Total Parenteral Nutrition/Amino Acids/Dextrose/ Fat Emulsion Intravenous 1,920 ml @ 80 mls/hr TPN CONT 06/22/19 22:00 06/23/19 21:59 DC 06/22/19 22:14 80 MLS/HR Prochlorperazine Edisylate (Compazine) 10 mg PRN Q8HRS PRN 06/11/19 12:00 06/12/19 14:59 10 MG Propofol 100 ml @ 6.588 mls/ hr CONT PRN 06/27/19 12:00 07/01/19 05:05 19.764 MLS/HR Ringer's Solution 1,000 ml @ 100 mls/hr Q10H 06/22/19 15:39 06/24/19 17:46 DC 06/23/19 22:06 100 MLS/HR Rocuronium [place] (Zemuron) 50 mg STK-MED ONCE 06/22/19 14:52 06/22/19 14:52 DC Sevoflurane (Ultane) 90 ml STK-MED ONCE 06/22/19 13:53 06/22/19 13:53 DC Sodium Bicarbonate 50 meq/Sodium Chloride 1,050 ml @ 150 mls/hr Q7H 06/12/19 11:00 06/13/19 14:48 DC 06/13/19 04:16 150 MLS/HR Sodium Bicarbonate (Sodium Bicarb Adult 8.4% Syr) 50 meq 1X ONCE 06/26/19 19:30 06/26/19 19:23 DC Sodium Chloride 500 ml @ 500 mls/hr 1X PRN PRN 06/26/19 19:00 Sodium Chloride (Normal Saline Flush) 3 ml QSHIFT PRN 06/22/19 15:45 Sodium Phosphate 10 mmol/Magnesium Sulfate 5 meq/ Calcium Gluconate 15 meq/ Multivitamins 10 ml/Chromium/ Copper/Manganese/ Seleni/Zn 0.5 ml/ Insulin Human Regular 10 unit/ Total Parenteral Nutrition/Amino Acids/Dextrose/ Fat Emulsion Intravenous 1,920 ml @ 80 mls/hr TPN CONT 06/23/19 22:00 06/24/19 21:59 DC 06/23/19 22:20 80 MLS/HR Sodium Phosphate 10 mmol/Magnesium Sulfate 5 meq/ Calcium Gluconate 15 meq/ Multivitamins 10 ml/Chromium/ Copper/Manganese/ Seleni/Zn 0.5 ml/ Total Parenteral Nutrition/Amino Acids/Dextrose/ Fat Emulsion Intravenous 1,920 ml @ 80 mls/hr TPN CONT 06/27/19 22:00 06/27/19 12:55 DC Succinylcholine Chloride (Anectine) 200 mg 1X ONCE 06/14/19 13:00 06/14/19 13:01 DC 06/14/19 12:59 200 MG Vecuronium [place] 50 mg/ Miscellaneous 50 ml @ 4.925 mls/ hr CONT PRN 06/22/19 15:00 06/25/19 05:19 4.925 MLS/HR Labs: Lab Laboratory Tests Test 06/30/19 10:57 06/30/19 12:01 06/30/19 13:04 06/30/19 14:11 Glucose (Fingerstick) 179 mg/dL (70-99) 167 mg/dL (70-99) 150 mg/dL (70-99) 139 mg/dL (70-99) Test 06/30/19 15:19 06/30/19 16:17 06/30/19 17:21 06/30/19 18:16 Glucose (Fingerstick) 126 mg/dL (70-99) 133 mg/dL (70-99) 132 mg/dL (70-99) 141 mg/dL (70-99) Test 06/30/19 19:26 06/30/19 20:08 06/30/19 22:25 07/01/19 00:24 Glucose (Fingerstick) 146 mg/dL (70-99) 131 mg/dL (70-99) 146 mg/dL (70-99) 143 mg/dL (70-99) Test 07/01/19 02:27 07/01/19 03:31 07/01/19 04:32 07/01/19 05:50 Glucose (Fingerstick) 118 mg/dL (70-99) 127 mg/dL (70-99) 126 mg/dL (70-99) Sodium Level 148 mmol/L (136-145) Potassium Level 4.2 mmol/L (3.5-5.1) Chloride Level 111 mmol/L (98-107) Carbon Dioxide Level 29 mmol/L (21-32) Anion Gap 8 (6-14) Blood Urea Nitrogen 68 mg/dL (8-26) Creatinine 1.1 mg/dL (0.7-1.3) Estimated GFR (Cockcroft-Gault) 86.1 Glucose Level 156 mg/dL (70-99) Calcium Level 8.0 mg/dL (8.5-10.1) Test 07/01/19 06:10 07/01/19 07:28 07/01/19 08:00 07/01/19 08:39 Glucose (Fingerstick) 142 mg/dL (70-99) 158 mg/dL (70-99) 170 mg/dL (70-99) O2 Saturation 97 % (92-99) Arterial Blood pH 7.42 (7.35-7.45) Arterial Blood pCO2 at Patient Temp 41 mmHg (35-46) Arterial Blood pO2 at Patient Temp 109 mmHg (75-108) Arterial Blood HCO3 26 mmol/L (21-28) Arterial Blood Base Excess 2 mmol/L (-3-3) FiO2 40 Objective: Assessment: . Fever improving Leukocytosis Gallbladder stone pancreatitis s/p expl lap, pancreatic necrosectomy, cholecystostomy tube placement, G-tube placement with jejunal extension, 06/21 Loculated fluid collection along the anterior aspect of the pancreas measures 3.0 x 2.6 cm and fluid collection along the inferior aspect of the stomach measu res 9.6 x 4.0 cm, on CT 06/21 Sepsis from GI - cult neg Acute Resp failure - s/p trach 06/21 Lactic acidosis. Acute kidney injury previously requiring dialysis - now with improved UOP, HDC (06/13) still in place Metabolic acidosis. Hypocalcemia Plan: Plan of Care Continue merrem, micafungin (06/19) and Zyvox( ) BC neg f/u cultures DC Central line or change Maintain aspiration precaution. May need re-imaging Gen surgery following D/w nursing Critically ill THUY GOODMAN MD Jul 01, 2019 09:07
[2019-07-01] MEDS: FUROSEMIDE 40 MG/4 ML VIAL. IVP SCH (09:26)
[2019-07-01] MEDS: MICAFUNGIN 100 MG in IV DEXTROSE 5% 100ML 100 ML IV SCH (09:27)
--- NOTE | 2019-07-01 09:42 | PDOC ---
Objective: Objective: Stable from GI standpoint. Vital Signs: Vital Signs Date Time Temp Pulse Resp B/P (MAP) Pulse Ox O2 Delivery O2 Flow Rate FiO2 07/01/19 09:30 99 Ventilator 07/01/19 09:22 76 20 98/58 (71) 07/01/19 07:23 99.1 99.1 06/30/19 18:44 3.0 Labs: Laboratory Tests Test 06/30/19 10:57 06/30/19 12:01 06/30/19 13:04 06/30/19 14:11 Glucose (Fingerstick) 179 mg/dL 167 mg/dL 150 mg/dL 139 mg/dL Test 06/30/19 15:19 06/30/19 16:17 06/30/19 17:21 06/30/19 18:16 Glucose (Fingerstick) 126 mg/dL 133 mg/dL 132 mg/dL 141 mg/dL Test 06/30/19 19:26 06/30/19 20:08 06/30/19 22:25 07/01/19 00:24 Glucose (Fingerstick) 146 mg/dL 131 mg/dL 146 mg/dL 143 mg/dL Test 07/01/19 02:27 07/01/19 03:31 07/01/19 04:32 07/01/19 05:50 Glucose (Fingerstick) 118 mg/dL 127 mg/dL 126 mg/dL Sodium Level 148 mmol/L Potassium Level 4.2 mmol/L Chloride Level 111 mmol/L Carbon Dioxide Level 29 mmol/L Anion Gap 8 Blood Urea Nitrogen 68 mg/dL Creatinine 1.1 mg/dL Estimated GFR (Cockcroft-Gault) 86.1 Glucose Level 156 mg/dL Calcium Level 8.0 mg/dL Test 07/01/19 06:10 07/01/19 07:28 07/01/19 08:00 07/01/19 08:30 Glucose (Fingerstick) 142 mg/dL 158 mg/dL O2 Saturation 97 % Arterial Blood pH 7.42 Arterial Blood pCO2 at Patient Temp 41 mmHg Arterial Blood pO2 at Patient Temp 109 mmHg Arterial Blood HCO3 26 mmol/L Arterial Blood Base Excess 2 mmol/L FiO2 40 White Blood Count 15.7 x10^3/uL Red Blood Count 2.74 x10^6/uL Hemoglobin 7.9 g/dL Hematocrit 24.5 % Mean Corpuscular Volume 90 fL Mean Corpuscular Hemoglobin 29 pg Mean Corpuscular Hemoglobin Concent 32 g/dL Red Cell Distribution Width 14.6 % Platelet Count 355 x10^3/uL Neutrophils (%) (Auto) 81 % Lymphocytes (%) (Auto) 9 % Monocytes (%) (Auto) 9 % Eosinophils (%) (Auto) 1 % Basophils (%) (Auto) 0 % Neutrophils # (Auto) 12.7 x10^3/uL Lymphocytes # (Auto) 1.4 x10^3/uL Monocytes # (Auto) 1.4 x10^3/uL Eosinophils # (Auto) 0.1 x10^3/uL Basophils # (Auto) 0.1 x10^3/uL Test 07/01/19 08:39 Glucose (Fingerstick) 170 mg/dL BLOOD CULTURE Final NO GROWTH AFTER 5 DAYS Imaging: CXR 06/30 IMPRESSION: 1. Stable life support devices. 2. Stable left greater than right basilar opacities. 3. Stable small left greater than right pleural effusions. PE: GEN: NAD HEENT: OG, trach LUNGS: clear HEART: RRR ABD: distended some NEURO/PSYCH: sedated A/P: S/p pancreatic necrosectomy, resp failure, fever -- Continue same per GI. Hemodynamically unstable?: No Is patient in severe pain?: No Is NPO status required?: Yes PAXTON ALEXANDER Jul 01, 2019 09:42
--- NOTE | 2019-07-01 11:37 | PDOC ---
Renal-Progress Notes Subjective Notes Notes NO NEW CHANGES History of Present Illness Hx of present illness STABLE Vitals Vitals Vital Signs Date Time Temp Pulse Resp B/P (MAP) Pulse Ox O2 Delivery O2 Flow Rate FiO2 07/01/19 11:27 97 Ventilator 07/01/19 11:13 99.3 82 20 95/49 (64) 99.3 06/30/19 18:44 3.0 Weight Weight [ ] I.O. Intake and Output Intake and Output 07/01/19 07:00 Intake Total 3583 ml Output Total 4091 ml Balance -508 ml IV Total 3583 ml Output Urine Total 3625 ml Drainage Total 466 ml Labs Labs Laboratory Tests Test 06/30/19 12:01 06/30/19 13:04 06/30/19 14:11 06/30/19 15:19 Glucose (Fingerstick) 167 mg/dL (70-99) 150 mg/dL (70-99) 139 mg/dL (70-99) 126 mg/dL (70-99) Test 06/30/19 16:17 06/30/19 17:21 06/30/19 18:16 06/30/19 19:26 Glucose (Fingerstick) 133 mg/dL (70-99) 132 mg/dL (70-99) 141 mg/dL (70-99) 146 mg/dL (70-99) Test 06/30/19 20:08 06/30/19 22:25 07/01/19 00:24 07/01/19 02:27 Glucose (Fingerstick) 131 mg/dL (70-99) 146 mg/dL (70-99) 143 mg/dL (70-99) 118 mg/dL (70-99) Test 07/01/19 03:31 07/01/19 04:32 07/01/19 05:50 07/01/19 06:10 Glucose (Fingerstick) 127 mg/dL (70-99) 126 mg/dL (70-99) 142 mg/dL (70-99) Sodium Level 148 mmol/L (136-145) Potassium Level 4.2 mmol/L (3.5-5.1) Chloride Level 111 mmol/L (98-107) Carbon Dioxide Level 29 mmol/L (21-32) Anion Gap 8 (6-14) Blood Urea Nitrogen 68 mg/dL (8-26) Creatinine 1.1 mg/dL (0.7-1.3) Estimated GFR (Cockcroft-Gault) 86.1 Glucose Level 156 mg/dL (70-99) Calcium Level 8.0 mg/dL (8.5-10.1) Test 07/01/19 07:28 07/01/19 08:00 07/01/19 08:30 07/01/19 08:39 Glucose (Fingerstick) 158 mg/dL (70-99) 170 mg/dL (70-99) O2 Saturation 97 % (92-99) Arterial Blood pH 7.42 (7.35-7.45) Arterial Blood pCO2 at Patient Temp 41 mmHg (35-46) Arterial Blood pO2 at Patient Temp 109 mmHg (75-108) Arterial Blood HCO3 26 mmol/L (21-28) Arterial Blood Base Excess 2 mmol/L (-3-3) FiO2 40 White Blood Count 15.7 x10^3/uL (4.0-11.0) Red Blood Count 2.74 x10^6/uL (4.30-5.70) Hemoglobin 7.9 g/dL (13.0-17.5) Hematocrit 24.5 % (39.0-53.0) Mean Corpuscular Volume 90 fL (79-100) Mean Corpuscular Hemoglobin 29 pg (25-35) Mean Corpuscular Hemoglobin Concent 32 g/dL (31-37) Red Cell Distribution Width 14.6 % (11.5-14.5) Platelet Count 355 x10^3/uL (140-400) Neutrophils (%) (Auto) 81 % (31-73) Lymphocytes (%) (Auto) 9 % (24-48) Monocytes (%) (Auto) 9 % (0-9) Eosinophils (%) (Auto) 1 % (0-3) Basophils (%) (Auto) 0 % (0-3) Neutrophils # (Auto) 12.7 x10^3/uL (1.8-7.7) Lymphocytes # (Auto) 1.4 x10^3/uL (1.0-4.8) Monocytes # (Auto) 1.4 x10^3/uL (0.0-1.1) Eosinophils # (Auto) 0.1 x10^3/uL (0.0-0.7) Basophils # (Auto) 0.1 x10^3/uL (0.0-0.2) Test 07/01/19 09:36 07/01/19 10:43 Glucose (Fingerstick) 181 mg/dL (70-99) 203 mg/dL (70-99) Micro Micro Microbiology 06/30/19 Blood Culture - Preliminary, Resulted NO GROWTH AFTER 1 DAY 06/23/19 - Final, Complete 06/23/19 - Final, Complete 06/23/19 - Final, Complete 06/23/19 Gram Stain Evaluation - Final, Complete 06/23/19 Sputum Culture - Final, Complete 06/23/19 Sputum Result 1 - Final, Complete 06/22/19 AFB Specimen Processing Tissue - Final, Resulted 06/22/19 Acid Fast Bacilli Culture, Resulted Pending 06/22/19 Gram Stain - Final, Resulted 06/22/19 Fungal Culture, Resulted Pending 06/22/19 Fungal Culture Result 1, Resulted Pending Review of Systems Constitutional: yes: unresponsive Physical Exam General Appearance: no apparent distress Skin: warm Respiratory: decreased breath sounds Heart: S1S2 Abdomen: distension, other (NO BS) Genitourinary: bladder flat Extremities: pulses present Neurology: other (sedated) Assessment Assessment IMP FABIOLA - IMPROVED WITH CR OF 1.1-OFF HD NOW HYPERNATREMIA WORSENING LFT'S LEUCOCYTOSIS GB STONE PANCREATITIS ACUTE RESP FAILURE MET ACIDOSIS S/P EXP LAP AND THEN PANCREATIC NECROSECTOMY WITH DRAINS MILD HYPERVOLEMIA PLAN CONT TPN-CHANGES PER PHARMACY CONT ANTIBIOTICS MONITOR RENAL FX IV LASIX DAILY TO CONTINUE WILL FOLLOW BERE QUIROZ MD Jul 01, 2019 11:37
--- NOTE | 2019-07-01 12:00 | PDOC ---
MAXIMILIANO GREENBERG [employer]ER AND AD[employer]ER 07/01/19 1200: SURGICAL PROGRESS NOTE Subjective d/w nursing abdominal pressure was 30 Vital Signs Vital Signs Date Time Temp Pulse Resp B/P (MAP) Pulse Ox O2 Delivery O2 Flow Rate FiO2 07/01/19 11:52 82 20 93/51 (65) 97 Ventilator 07/01/19 11:13 99.3 99.3 06/30/19 18:44 3.0 I&O Intake and Output 07/01/19 07:00 Intake Total 3583 ml Output Total 4091 ml Balance -508 ml IV Total 3583 ml Output Urine Total 3625 ml Drainage Total 466 ml PATIENT HAS A LEPE: Yes General: Other ([id number]) HEENT: Other (intubated ) Abdomen: Other (distended, unchanged abdominal exam) Labs Laboratory Tests Test 06/29/19 13:23 06/29/19 18:21 06/29/19 20:22 06/29/19 21:29 Glucose (Fingerstick) 195 mg/dL (70-99) 148 mg/dL (70-99) 176 mg/dL (70-99) 215 mg/dL (70-99) Test 06/29/19 23:42 06/30/19 01:36 06/30/19 02:43 06/30/19 03:49 Glucose (Fingerstick) 136 mg/dL (70-99) 103 mg/dL (70-99) 94 mg/dL (70-99) 144 mg/dL (70-99) Test 06/30/19 04:58 06/30/19 05:30 06/30/19 06:06 06/30/19 07:37 Glucose (Fingerstick) 138 mg/dL (70-99) 139 mg/dL (70-99) 149 mg/dL (70-99) White Blood Count 15.8 x10^3/uL (4.0-11.0) Red Blood Count 2.81 x10^6/uL (4.30-5.70) Hemoglobin 8.2 g/dL (13.0-17.5) Hematocrit 25.0 % (39.0-53.0) Mean Corpuscular Volume 89 fL (79-100) Mean Corpuscular Hemoglobin 29 pg (25-35) Mean Corpuscular Hemoglobin Concent 33 g/dL (31-37) Red Cell Distribution Width 14.5 % (11.5-14.5) Platelet Count 332 x10^3/uL (140-400) Neutrophils (%) (Auto) 83 % (31-73) Lymphocytes (%) (Auto) 7 % (24-48) Monocytes (%) (Auto) 9 % (0-9) Eosinophils (%) (Auto) 1 % (0-3) Basophils (%) (Auto) 0 % (0-3) Neutrophils # (Auto) 13.1 x10^3/uL (1.8-7.7) Lymphocytes # (Auto) 1.1 x10^3/uL (1.0-4.8) Monocytes # (Auto) 1.5 x10^3/uL (0.0-1.1) Eosinophils # (Auto) 0.1 x10^3/uL (0.0-0.7) Basophils # (Auto) 0.1 x10^3/uL (0.0-0.2) Sodium Level 143 mmol/L (136-145) Potassium Level 3.5 mmol/L (3.5-5.1) Chloride Level 108 mmol/L (98-107) Carbon Dioxide Level 29 mmol/L (21-32) Anion Gap 6 (6-14) Blood Urea Nitrogen 73 mg/dL (8-26) Creatinine 1.2 mg/dL (0.7-1.3) Estimated GFR (Cockcroft-Gault) 77.9 BUN/Creatinine Ratio 61 (6-20) Glucose Level 152 mg/dL (70-99) Calcium Level 7.8 mg/dL (8.5-10.1) Phosphorus Level 3.9 mg/dL (2.6-4.7) Magnesium Level 1.9 mg/dL (1.8-2.4) Total Bilirubin 4.8 mg/dL (0.2-1.0) Aspartate Amino Transf (AST/SGOT) 65 U/L (15-37) Alanine Aminotransferase (ALT/SGPT) 73 U/L (16-63) Alkaline Phosphatase 250 U/L (46-116) Total Protein 5.9 g/dL (6.4-8.2) Albumin 1.1 g/dL (3.4-5.0) Albumin/Globulin Ratio 0.2 (1.0-1.7) Triglycerides Level 290 mg/dL (0-150) Test 06/30/19 08:45 06/30/19 08:48 06/30/19 10:57 06/30/19 12:01 O2 Saturation 97 % (92-99) Arterial Blood pH 7.45 (7.35-7.45) Arterial Blood pCO2 at Patient Temp 38 mmHg (35-46) Arterial Blood pO2 at Patient Temp 96 mmHg (75-108) Arterial Blood HCO3 26 mmol/L (21-28) Arterial Blood Base Excess 2 mmol/L (-3-3) FiO2 40 Glucose (Fingerstick) 143 mg/dL (70-99) 179 mg/dL (70-99) 167 mg/dL (70-99) Test 06/30/19 13:04 06/30/19 14:11 06/30/19 15:19 06/30/19 16:17 Glucose (Fingerstick) 150 mg/dL (70-99) 139 mg/dL (70-99) 126 mg/dL (70-99) 133 mg/dL (70-99) Test 06/30/19 17:21 06/30/19 18:16 06/30/19 19:26 06/30/19 20:08 Glucose (Fingerstick) 132 mg/dL (70-99) 141 mg/dL (70-99) 146 mg/dL (70-99) 131 mg/dL (70-99) Test 06/30/19 22:25 07/01/19 00:24 07/01/19 02:27 07/01/19 03:31 Glucose (Fingerstick) 146 mg/dL (70-99) 143 mg/dL (70-99) 118 mg/dL (70-99) 127 mg/dL (70-99) Test 07/01/19 04:32 07/01/19 05:50 07/01/19 06:10 07/01/19 07:28 Glucose (Fingerstick) 126 mg/dL (70-99) 142 mg/dL (70-99) 158 mg/dL (70-99) Sodium Level 148 mmol/L (136-145) Potassium Level 4.2 mmol/L (3.5-5.1) Chloride Level 111 mmol/L (98-107) Carbon Dioxide Level 29 mmol/L (21-32) Anion Gap 8 (6-14) Blood Urea Nitrogen 68 mg/dL (8-26) Creatinine 1.1 mg/dL (0.7-1.3) Estimated GFR (Cockcroft-Gault) 86.1 Glucose Level 156 mg/dL (70-99) Calcium Level 8.0 mg/dL (8.5-10.1) Test 07/01/19 08:00 07/01/19 08:30 07/01/19 08:39 07/01/19 09:36 O2 Saturation 97 % (92-99) Arterial Blood pH 7.42 (7.35-7.45) Arterial Blood pCO2 at Patient Temp 41 mmHg (35-46) Arterial Blood pO2 at Patient Temp 109 mmHg (75-108) Arterial Blood HCO3 26 mmol/L (21-28) Arterial Blood Base Excess 2 mmol/L (-3-3) FiO2 40 White Blood Count 15.7 x10^3/uL (4.0-11.0) Red Blood Count 2.74 x10^6/uL (4.30-5.70) Hemoglobin 7.9 g/dL (13.0-17.5) Hematocrit 24.5 % (39.0-53.0) Mean Corpuscular Volume 90 fL (79-100) Mean Corpuscular Hemoglobin 29 pg (25-35) Mean Corpuscular Hemoglobin Concent 32 g/dL (31-37) Red Cell Distribution Width 14.6 % (11.5-14.5) Platelet Count 355 x10^3/uL (140-400) Neutrophils (%) (Auto) 81 % (31-73) Lymphocytes (%) (Auto) 9 % (24-48) Monocytes (%) (Auto) 9 % (0-9) Eosinophils (%) (Auto) 1 % (0-3) Basophils (%) (Auto) 0 % (0-3) Neutrophils # (Auto) 12.7 x10^3/uL (1.8-7.7) Lymphocytes # (Auto) 1.4 x10^3/uL (1.0-4.8) Monocytes # (Auto) 1.4 x10^3/uL (0.0-1.1) Eosinophils # (Auto) 0.1 x10^3/uL (0.0-0.7) Basophils # (Auto) 0.1 x10^3/uL (0.0-0.2) Glucose (Fingerstick) 170 mg/dL (70-99) 181 mg/dL (70-99) Test 07/01/19 10:43 07/01/19 11:47 Glucose (Fingerstick) 203 mg/dL (70-99) 197 mg/dL (70-99) Laboratory Tests Test 06/30/19 12:01 06/30/19 13:04 06/30/19 14:11 06/30/19 15:19 Glucose (Fingerstick) 167 mg/dL (70-99) 150 mg/dL (70-99) 139 mg/dL (70-99) 126 mg/dL (70-99) Test 06/30/19 16:17 06/30/19 17:21 06/30/19 18:16 06/30/19 19:26 Glucose (Fingerstick) 133 mg/dL (70-99) 132 mg/dL (70-99) 141 mg/dL (70-99) 146 mg/dL (70-99) Test 06/30/19 20:08 06/30/19 22:25 07/01/19 00:24 07/01/19 02:27 Glucose (Fingerstick) 131 mg/dL (70-99) 146 mg/dL (70-99) 143 mg/dL (70-99) 118 mg/dL (70-99) Test 07/01/19 03:31 07/01/19 04:32 07/01/19 05:50 07/01/19 06:10 Glucose (Fingerstick) 127 mg/dL (70-99) 126 mg/dL (70-99) 142 mg/dL (70-99) Sodium Level 148 mmol/L (136-145) Potassium Level 4.2 mmol/L (3.5-5.1) Chloride Level 111 mmol/L (98-107) Carbon Dioxide Level 29 mmol/L (21-32) Anion Gap 8 (6-14) Blood Urea Nitrogen 68 mg/dL (8-26) Creatinine 1.1 mg/dL (0.7-1.3) Estimated GFR (Cockcroft-Gault) 86.1 Glucose Level 156 mg/dL (70-99) Calcium Level 8.0 mg/dL (8.5-10.1) Test 07/01/19 07:28 07/01/19 08:00 07/01/19 08:30 07/01/19 08:39 Glucose (Fingerstick) 158 mg/dL (70-99) 170 mg/dL (70-99) O2 Saturation 97 % (92-99) Arterial Blood pH 7.42 (7.35-7.45) Arterial Blood pCO2 at Patient Temp 41 mmHg (35-46) Arterial Blood pO2 at Patient Temp 109 mmHg (75-108) Arterial Blood HCO3 26 mmol/L (21-28) Arterial Blood Base Excess 2 mmol/L (-3-3) FiO2 40 White Blood Count 15.7 x10^3/uL (4.0-11.0) Red Blood Count 2.74 x10^6/uL (4.30-5.70) Hemoglobin 7.9 g/dL (13.0-17.5) Hematocrit 24.5 % (39.0-53.0) Mean Corpuscular Volume 90 fL (79-100) Mean Corpuscular Hemoglobin 29 pg (25-35) Mean Corpuscular Hemoglobin Concent 32 g/dL (31-37) Red Cell Distribution Width 14.6 % (11.5-14.5) Platelet Count 355 x10^3/uL (140-400) Neutrophils (%) (Auto) 81 % (31-73) Lymphocytes (%) (Auto) 9 % (24-48) Monocytes (%) (Auto) 9 % (0-9) Eosinophils (%) (Auto) 1 % (0-3) Basophils (%) (Auto) 0 % (0-3) Neutrophils # (Auto) 12.7 x10^3/uL (1.8-7.7) Lymphocytes # (Auto) 1.4 x10^3/uL (1.0-4.8) Monocytes # (Auto) 1.4 x10^3/uL (0.0-1.1) Eosinophils # (Auto) 0.1 x10^3/uL (0.0-0.7) Basophils # (Auto) 0.1 x10^3/uL (0.0-0.2) Test 07/01/19 09:36 07/01/19 10:43 07/01/19 11:47 Glucose (Fingerstick) 181 mg/dL (70-99) 203 mg/dL (70-99) 197 mg/dL (70-99) Problem List Problems Medical Problems: (1) Acute pancreatitis Status: Acute (2) Nausea & vomiting Status: Acute Assessment/Plan will review with WILL Hernandez MD 07/01/19 1216: SURGICAL PROGRESS NOTE Assessment/Plan pt seen and examined belly distended renal function is normal WBC stable at 15.7 temperature trending down IAP checked today and is 30 previous check done 06/25 not on pressors clinical status overall appears stable will continue supportive measures and trend the IAP d/w MAXIMILIANO Rodriguez APRN Jul 01, 2019 12:00 WILL BEJARANO MD Jul 01, 2019 12:16
[2019-07-01] MEDS: INSULIN REGULAR VIAL 100 UNIT in IV NORMAL SALINE 100ML 100 ML IV PRN (13:20)
[2019-07-01] MEDS: TPN PER PHARMACY MC PRN (13:29)
--- NOTE | 2019-07-01 13:30 | NUR ---
Pharmacy TPN Dosing Note S: CHRISTOPHER NEWSOME is a 49 year old M Currently receiving Central Continuous TPN started 06/19/19 B:Pertinent PMH: PANCREATITIS Height: 5 feet, 9 inches Weight: 109.135095 kg Current diet: NPO LABS: Sodium: 148 Potassium: 4.2 Chloride: 111 Calcium: 8.0 Corrected Calcium: 10.32 Magnesium: 1.9 CO2: 29 SCr: 1.1 Glucose: 127-158 Albumin: 1.1 AST: 55 ALT: 49 TPN FORMULA: TPN TYPE: Central Continuous AMINO ACIDS: 145 gm DEXTROSE: 200 gm POTASSIUM ACETATE: 10 mEq POTASSIUM PHOSPHATE: 10 mmol MAGNESIUM: 5 mEq CALCIUM: 15 mEq MULTIPLE VITAMIN: 10 ml TRACE ELEMENTS: MTE 5 0.5 ml(s) TPN PLAN: K has increased from 3.5-4.2 in one day. Will decrease KAce in TPN from 20 meq to 10 meq. Na is 148- cont to omit from TPN. Pt remains on propofol, cont to hold lipids per RD. -BMP and Mag labs in the AM. R: Change TPN as noted above. Will monitor electrolytes, glucose, and tolerance to TPN. JULIA SALGADO [facility], 07/01/19 1330
--- NOTE | 2019-07-01 13:40 | PDOC ---
[employer] PROGRESS NOTE Chief Complaint Chief Complaint Acute hypoxemic respiratory failure, multifactorial. Status post tracheostomy 5 drains Acute gallstone pancreatitis./ Necrosis Acute kidney failure. improving Metabolic toxic encephalopathy. Hyperkalemia.corrected Metabolic / respiratory acidosis Hypocalcemia. Hepatitis B Hypernatremia LLL small effusion, monitor Exploratory laparotomy, pancreatic necrosectomy, cholecystostomy tube placement, Gastrostomy placement with jejunal extension, tracheostomy placement (specifically 8 shiley cuffed) Specimans Obtained: pancreatic necrosis, saponification, gallstones Findings: diffuse peritonitis, 1.5 liters of ascites, diffuse saponification, viable viscera, mulitiple gallstones, normal liver History of Present Illness History of Present Illness [id number] Patient seen and examined Discussed with optical element coater chart [id number] Patient seen and examined He remains critically ill in the ICU on the vent Discussed with his and his daughter and the RN Chart reviewed [id number] Patient seen and examined in the ICU He remains on the vent with assist control/20/500/40% FiO2 Discussed with RN Chart reviewed He is still critically ill [id number] Patient seen and examined in the ICU He remains critically ill intubated Vent: ac/ 20 /500/ 40% Chart reviewed Discussed with RN [id number] Patient seen and examined in the ICU He remains intubated Dr. Mcbride is here with me Discussed with RN Discussed with patient's brother Chart reviewed Patient remains mechanically intubated and sedated Extremely critically ill [id number] Patient seen and examined in the ICU He remains intubated and now on multiple drips Vent settings as follows assist-control/18/500/40% Discussed with RN Discussed with Dr. Smyth Chart reviewed He is critically ill [id number] Patient seen and examined in the ICU He is on the ventilator and sedated and paralyzed Discussed with RN Discussed with his Chart reviewed Exploratory laparotomy, pancreatic necrosectomy, cholecystostomy tube placement, Gastrostomy placement with jejunal extension, tracheostomy placement (specifically 8 shiley cuffed) 06/24/2019 Pt seen and examined in the ICU. Discussed with RN, Chart reviewed. Pt was sedated and currently being tried on room air. Ventilator setting as follows: AC/18/500/40% with peep of 5, but not in use during observation. Currently has [address] Vitals/I&O Vitals/I&O: Vital Signs Date Time Temp Pulse Resp B/P (MAP) Pulse Ox O2 Delivery O2 Flow Rate FiO2 07/01/19 12:57 81 20 103/60 (74) 97 Ventilator 07/01/19 11:13 99.3 99.3 06/30/19 18:44 3.0 I & O 06/30/19 06/30/19 07/01/19 15:00 23:00 07:00 Intake Total 450 ml 2028 ml 1105 ml Output Total 1485 ml 1301 ml 1305 ml Balance -1035 ml 727 ml -200 ml Physical Exam Physical Exam: GENERAL: Sedated, trached/vent HEENT: Pupils equal, OGT, NECK: Trach/vent LUNGS: Diminished aeration bases HEART: S1, S2, regular, no murmurs. ABDOMEN: Distended, fairly tight, bowel sounds present. drains x 4, wound vac in place : [place] EXTREMITIES: Trace edema, no cyanosis. SCDs bilaterally SKIN: Warm, dry. 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 RIJ & RIJ/HD catheter (06/19) General: Other ([id number]) Heart: Regular rate, Normal S1, Normal S2, No murmurs, Gallops Lungs: Crackles Abdomen: Other (distended, unchanged abdominal exam) Extremities: No clubbing, No cyanosis, No edema, Normal pulses, No tenderness/swelling Skin: No significant lesion Labs Labs: Laboratory Tests Test 06/30/19 14:11 06/30/19 15:19 06/30/19 16:17 06/30/19 17:21 Glucose (Fingerstick) 139 mg/dL (70-99) 126 mg/dL (70-99) 133 mg/dL (70-99) 132 mg/dL (70-99) Test 06/30/19 18:16 06/30/19 19:26 06/30/19 20:08 06/30/19 22:25 Glucose (Fingerstick) 141 mg/dL (70-99) 146 mg/dL (70-99) 131 mg/dL (70-99) 146 mg/dL (70-99) Test 07/01/19 00:24 07/01/19 02:27 07/01/19 03:31 07/01/19 04:32 Glucose (Fingerstick) 143 mg/dL (70-99) 118 mg/dL (70-99) 127 mg/dL (70-99) 126 mg/dL (70-99) Test 07/01/19 05:50 07/01/19 06:10 07/01/19 07:28 07/01/19 08:00 Sodium Level 148 mmol/L (136-145) Potassium Level 4.2 mmol/L (3.5-5.1) Chloride Level 111 mmol/L (98-107) Carbon Dioxide Level 29 mmol/L (21-32) Anion Gap 8 (6-14) Blood Urea Nitrogen 68 mg/dL (8-26) Creatinine 1.1 mg/dL (0.7-1.3) Estimated GFR (Cockcroft-Gault) 86.1 Glucose Level 156 mg/dL (70-99) Calcium Level 8.0 mg/dL (8.5-10.1) Glucose (Fingerstick) 142 mg/dL (70-99) 158 mg/dL (70-99) O2 Saturation 97 % (92-99) Arterial Blood pH 7.42 (7.35-7.45) Arterial Blood pCO2 at Patient Temp 41 mmHg (35-46) Arterial Blood pO2 at Patient Temp 109 mmHg (75-108) Arterial Blood HCO3 26 mmol/L (21-28) Arterial Blood Base Excess 2 mmol/L (-3-3) FiO2 40 Test 07/01/19 08:30 07/01/19 08:39 07/01/19 09:36 07/01/19 10:43 White Blood Count 15.7 x10^3/uL (4.0-11.0) Red Blood Count 2.74 x10^6/uL (4.30-5.70) Hemoglobin 7.9 g/dL (13.0-17.5) Hematocrit 24.5 % (39.0-53.0) Mean Corpuscular Volume 90 fL (79-100) Mean Corpuscular Hemoglobin 29 pg (25-35) Mean Corpuscular Hemoglobin Concent 32 g/dL (31-37) Red Cell Distribution Width 14.6 % (11.5-14.5) Platelet Count 355 x10^3/uL (140-400) Neutrophils (%) (Auto) 81 % (31-73) Lymphocytes (%) (Auto) 9 % (24-48) Monocytes (%) (Auto) 9 % (0-9) Eosinophils (%) (Auto) 1 % (0-3) Basophils (%) (Auto) 0 % (0-3) Neutrophils # (Auto) 12.7 x10^3/uL (1.8-7.7) Lymphocytes # (Auto) 1.4 x10^3/uL (1.0-4.8) Monocytes # (Auto) 1.4 x10^3/uL (0.0-1.1) Eosinophils # (Auto) 0.1 x10^3/uL (0.0-0.7) Basophils # (Auto) 0.1 x10^3/uL (0.0-0.2) Glucose (Fingerstick) 170 mg/dL (70-99) 181 mg/dL (70-99) 203 mg/dL (70-99) Test 07/01/19 11:47 07/01/19 13:00 Glucose (Fingerstick) 197 mg/dL (70-99) 156 mg/dL (70-99) Assessment and Plan Assessmemt and Plan Problems Medical Problems: (1) Acute pancreatitis Status: Acute (2) Nausea & vomiting Status: Acute Acute hypoxemic respiratory failure, multifactorial. Status post tracheostomy 5 drains Acute gallstone pancreatitis./ Necrosis Acute kidney failure. improving Metabolic toxic encephalopathy. Hyperkalemia.corrected Metabolic / respiratory acidosis Hypocalcemia. Hepatitis B Hypernatremia LLL small effusion, monitor Exploratory laparotomy, pancreatic necrosectomy, cholecystostomy tube placement, Gastrostomy placement with jejunal extension, tracheostomy placement (specifically 8 shiley cuffed) Plan: Continue ICU monitoring Continue to monitor intraabdominal pressures DVT prophylaxis appreciate GI consult Vent weaning IV antibiotics IV paralytics and IV sedatives Trend labs Wound care We are managing 5 drains He remains critically ill Prognosis guarded Total time 32 minutes Comment Review of Relevant I have reviewed the following items alexandra (where applicable) has been applied. Medications: Current Medications Medications (Trade) Dose Ordered Sig/Jesse Route PRN Reason Start Time Stop Time Status Last Admin Dose Admin Potassium Phosphate 10 mmol/ Magnesium Sulfate 5 meq/Calcium Gluconate 15 meq/ Multivitamins 10 ml/Chromium/ Copper/Manganese/ Seleni/Zn 0.5 ml/ Potassium Acetate 20 meq/Total Parenteral Nutrition/Amino Acids/Dextrose 1,920 ml @ 80 mls/hr TPN CONT IV 06/30/19 22:00 07/01/19 21:59 06/30/19 21:38 Hemodynamically unstable?: No Is patient in severe pain?: No Is NPO status required?: Yes JUSTIN WORKMAN III DO Jul 01, 2019 13:40
[2019-07-01] MEDS: fentaNYL HIGH DOSE PCA 55 ML IV PRN (13:53)
[2019-07-01] MEDS: IV NORMAL SALINE 1000ML BAG 1,000 ML IV SCH (14:05)
--- NOTE | 2019-07-01 16:20 | NUR ---
Wound Care Pt seen for wound care follow up re: application of an incisional vac to midline abdominal incision. Abdominal dressings and drain sponges removed, all areas cleaned with ChloraPrep scrubs and allowed to dry. Midline abdominal incision approximated, with small amount of sanguinous drainage along incision line, and moderate amount from base of distal abdomen. Vac drape "window paned" around incision, contact layer applied over incision line, then silver vac foam applied over contact layer, drape applied, vac showing strong seal at -125 mmHg continuous suction. Split gauze sponges applied around all drains and lightly taped. No other wounds noted on full skin inspection. Pt turned to left side with heels floated. Will continue to follow for vac management on weekly basis and PRN.
--- NOTE | 2019-07-01 18:14 | NUR ---
Attempted to lower sedation, patient became anxious, tachypneic, tachycardic, sedation was restarted. Will continue to monitor patient.
[2019-07-01] MEDS: INSULIN GLARGINE SYRINGE. SQ SCH (20:32)
[2019-07-01] MEDS ORDERED: TOTAL PARENTERAL NUTRITION IV SCH ×8 (22:00)
[2019-07-01] MEDS ORDERED: [UNRECOGNIZED DRUG - OTHER] IV SCH ×8 (22:00)
[2019-07-01] MEDS ORDERED: AMINO ACID IV SCH ×8 (22:00)
[2019-07-01] MEDS ORDERED: DEXTROSE 70% IV SCH ×8 (22:00)
[2019-07-02] VITALS (24 sets, daily range): BP systolic 89–136; BP diastolic 51–82
[2019-07-02] MEDS: MEROPENEM 500 MG in IV NORMAL SALINE 50ML 50 ML IV SCH ×5 (00:09→23:43)
[2019-07-02] MEDS: DEXMEDETOMIDINE 400 MCG in IV NORMAL SALINE 100ML 96 ML IV PRN ×9 (00:36→21:36)
[2019-07-02] MEDS: PROPOFOL 100 ML IV PRN ×6 (03:07→22:31)
[2019-07-02] MEDS: PANTOPRAZOLE IV PUSH 40 MG VIAL. IVP SCH ×2 (06:02→17:58)
[2019-07-02] MEDS: ENOXAPARIN 40 MG/0.4 ML SYRINGE. SQ SCH (06:02)
[2019-07-02 06:09] LABS: BASO # 0.1 x10^3/uL (0.0-0.2); BASO % 1 % (0-3); EOS # 0.1 x10^3/uL (0.0-0.7); EOS % 1 % (0-3); HEMATOCRIT 24.1 % (39.0-53.0); HEMOGLOBIN 7.9 g/dL (13.0-17.5); LYMPH # 0.8 x10^3/uL (1.0-4.8); LYMPH % 5 % (24-48); MEAN CORPUSCULAR HEMOGLOBIN 29 pg (25-35); MEAN CORPUSCULAR HGB CONC 33 g/dL (31-37); MEAN CORPUSCULAR VOLUME 88 fL (79-100); MONO # 1.5 x10^3/uL (0.0-1.1); MONO % 10 % (0-9); NEUT # 12.5 x10^3/uL (1.8-7.7); NEUT % 84 % (31-73); PLATELET COUNT 376 x10^3/uL (140-400); RED BLOOD COUNT 2.73 x10^6/uL (4.30-5.70)
[2019-07-02 06:34] LABS: ALBUMIN/GLOBULIN RATIO 0.2 (1.0-1.7); CALCIUM 8.1 mg/dL (8.5-10.1); GFR 96.1; POTASSIUM 3.8 mmol/L (3.5-5.1); TOTAL BILIRUBIN 5.4 mg/dL (0.2-1.0); TOTAL PROTEIN 5.9 g/dL (6.4-8.2)
--- NOTE | 2019-07-02 07:51 | RAD ---
CHEST AP ONLY INDICATION: Respiratory failure. COMPARISON STUDY: 07/01/2019. FINDINGS: Life Support Devices: Stable tracheostomy, enteric tube, right IJ dual-lumen venous catheter, additional right IJ central venous catheter. Lungs: Low lung volume. Stable mild bibasilar opacities. Stable pulmonary vasculature. Pleura: Stable small left greater than right pleural effusions. Heart and Mediastinum: Stable cardiomediastinal silhouette and great vessels. IMPRESSION: 1. Stable bibasilar opacities. 2. Stable small left greater than right pleural effusions. 3. Life-support devices as above. Electronically signed by: Charlie Mcduffie MD (07/02/2019 7:47 AM) [id number]
--- NOTE | 2019-07-02 07:55 | PDOC ---
Infectious Disease Note Subjective: Subjective Sedated, on vent on 40% Fio2 TPN cont to have fever Vital Signs: Vital Signs Vital Signs Date Time Temp Pulse Resp B/P (MAP) Pulse Ox O2 Delivery O2 Flow Rate FiO2 07/02/19 07:17 Mechanical Ventilator 07/02/19 07:09 98.2 73 20 108/66 (80) 99 98.2 07/01/19 14:23 3.0 Physical Exam: PHYSICAL EXAM GENERAL: Sedated, trached/vent HEENT: Pupils equal, OGT, NECK: Trach/vent LUNGS: Diminished aeration bases HEART: S1, S2, regular, no murmurs. ABDOMEN: Distended, fairly tight, bowel sounds present. drains x 4, wound vac in place : [place] EXTREMITIES: Trace edema, no cyanosis. SCDs bilaterally SKIN: Warm, dry. 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 (06/19) Medications: Inpatient Meds: Current Medications Medications (Trade) Dose Ordered Sig/Jesse Start Time Stop Time Status Last Admin Dose Admin Acetaminophen (Tylenol Supp) 650 mg PRN Q6HRS PRN 06/14/19 20:00 06/29/19 20:31 650 MG Albumin Human 500 ml @ As Directed STK-MED ONCE 06/22/19 13:25 06/22/19 13:25 DC Albuterol Sulfate (Ventolin Neb Soln) 2.5 mg RTQID 06/22/19 08:00 07/01/19 20:01 2.5 MG Amino Acids/ Electrolytes/ Dextrose 1,000 ml @ 80 mls/hr [id number] 06/12/19 10:15 06/18/19 13:50 DC Amino Acids/ Glycerin/ Electrolytes 1,000 ml @ 80 mls/hr [id number] 06/12/19 10:00 UNV Atropine Sulfate (ATROPINE 0.5mg SYRINGE) 0.5 mg PRN Q5MIN PRN 06/26/19 19:00 Calcium Chloride 2000 mg/Sodium Chloride 120 ml @ 240 mls/hr PRN QID PRN 06/14/19 10:15 06/15/19 09:58 DC 06/15/19 08:32 240 MLS/HR Calcium Gluconate (Calcium Gluconate) 1,000 mg 1X ONCE 06/22/19 19:45 06/22/19 20:15 DC Calcium Gluconate 1000 mg/Sodium Chloride 110 ml @ 220 mls/hr 1X ONCE 06/22/19 20:15 06/22/19 20:44 DC 06/22/19 20:36 220 MLS/HR Calcium Gluconate 5000 mg/Sodium Chloride 250 ml @ 28.782 mls/ hr CONT PRN 06/15/19 09:30 06/18/19 13:50 DC 06/18/19 06:12 28.782 MLS/HR Calcium Gluconate 93284 mg/Sodium Chloride 494 ml @ 4.051 mls/ hr CONT PRN 06/15/19 09:30 06/15/19 09:23 DC Cefoxitin Sodium (Mefoxin) 2 gm 1X PREOP ONCE 06/22/19 11:30 06/22/19 11:31 DC 06/22/19 11:37 2 GM Cellulose (Surgicel Hemostat 4x8) 1 each STK-MED ONCE 06/22/19 12:46 06/22/19 14:25 DC 06/22/19 12:46 1 EACH Chlorhexidine Gluconate (Peridex) 15 ml BID 06/14/19 21:00 07/01/19 16:34 DC 06/30/19 20:47 15 ML Dexamethasone Sodium Phosphate (Decadron) 4 mg STK-MED ONCE 06/22/19 11:45 06/22/19 11:45 DC Dexmedetomidine HCl 400 mcg/ Sodium Chloride 100 ml @ 0 mls/hr CONT PRN 06/26/19 19:00 07/02/19 06:21 38.6 MLS/HR Dextrose (Dextrose 50%-Water Syringe) 25 gm 1X ONCE 06/22/19 19:45 06/22/19 19:57 DC 06/22/19 20:37 25 GM Enoxaparin Sodium (Lovenox 40mg Syringe) 40 mg Q24H 06/23/19 06:00 07/02/19 06:02 40 MG Etomidate (Amidate) 14 mg 1X ONCE 06/14/19 13:00 06/14/19 13:01 DC 06/14/19 12:59 14 MG Fentanyl Citrate 55 ml @ 1.98 mls/hr CONT PRN 06/24/19 11:45 07/01/19 13:53 1.98 MLS/HR Fentanyl Citrate (Fentanyl 2ml Vial) 100 mcg 1X ONCE 06/14/19 13:00 06/14/19 13:01 DC 06/14/19 12:58 100 MCG Fentanyl Citrate (Fentanyl 600 Mcg/30 ml DIESEL CRANE OPERATOR) 600 mcg STK-MED ONCE 06/15/19 05:30 06/18/19 12:07 DC Furosemide (Lasix) 40 mg DAILY 06/27/19 12:00 07/01/19 09:26 40 MG Hydralazine HCl (Apresoline Inj) 10 mg PRN Q4HRS PRN 06/19/19 11:45 06/26/19 15:43 10 MG Hydromorphone HCl (Dilaudid) 1 mg PRN Q2HRS PRN 06/11/19 12:00 06/29/19 07:35 1 MG Info (CONTRAST GIVEN -- Rx MONITORING) 1 each PRN DAILY PRN 06/22/19 08:15 06/24/19 08:14 DC Info (PHARMACY MONITORING -- do not chart) 1 each PRN DAILY PRN 06/14/19 09:00 06/14/19 09:06 DC Info (Tpn Per Pharmacy) 1 each PRN DAILY PRN 06/19/19 11:15 07/01/19 13:29 1 EACH Insulin Glargine (Lantus Syringe) 20 unit QHS 06/21/19 21:00 07/01/19 20:32 20 UNIT Insulin Human Lispro (HumaLOG) 0-7 UNITS Q4HRS 06/15/19 00:15 07/01/19 16:41 DC 06/23/19 08:05 7 UNITS Insulin Human Regular (HumuLIN R VIAL) 10 unit 1X ONCE 06/22/19 19:45 06/22/19 19:57 DC 06/22/19 20:45 10 UNIT Insulin Human Regular 100 unit/ Sodium Chloride 101 ml @ 0 mls/hr CONT PRN 06/23/19 12:15 07/01/19 13:20 5.8 MLS/HR Iohexol (Omnipaque 240 Mg/ml) 30 ml 1X ONCE 06/22/19 08:00 06/22/19 08:05 DC Iohexol (Omnipaque 300 Mg/ml) 75 ml 1X ONCE 06/22/19 08:00 06/22/19 08:01 Cancel Iohexol (Omnipaque 350 Mg/ml) 100 ml 1X ONCE 06/11/19 04:45 06/11/19 04:46 DC 06/11/19 05:01 100 ML Labetalol HCl (Normodyne Iv Push) 20 mg PRN Q2HR PRN 06/19/19 11:45 06/26/19 14:44 20 MG Lidocaine HCl (Buffered Lidocaine 1%) 6 ml 1X ONCE 06/13/19 09:30 06/13/19 09:31 DC 06/13/19 09:23 6 ML Lidocaine HCl (Lidocaine Pf 2% Vial) 5 ml STK-MED ONCE 06/14/19 12:00 06/17/19 10:37 DC Linezolid/Dextrose 300 ml @ 300 mls/hr Q12HR 06/14/19 21:00 07/01/19 20:31 300 MLS/HR Lorazepam (Ativan Inj) 1 mg PRN Q6HRS PRN 06/11/19 18:15 06/29/19 07:48 1 MG Magnesium Sulfate 50 ml @ 25 mls/hr PRN DAILY PRN 06/14/19 10:30 Meropenem 500 mg/ Sodium Chloride 50 ml @ 100 mls/hr Q6HRS 06/18/19 07:30 07/02/19 06:01 100 MLS/HR Metoprolol Tartrate (Lopressor Vial) 5 mg 1X ONCE 06/18/19 12:15 06/18/19 12:16 DC Micafungin Sodium 100 mg/Dextrose 100 ml @ 100 mls/hr Q24H 06/20/19 09:00 07/01/19 09:27 100 MLS/HR Midazolam HCl (Versed) 5 mg 1X ONCE 06/14/19 13:00 06/14/19 13:01 DC 06/14/19 12:59 5 MG Midazolam HCl 50 mg/Sodium Chloride 50 ml @ 0 mls/hr CONT PRN 06/14/19 12:45 06/26/19 19:35 2 MLS/HR Morphine Sulfate (Morphine Sulfate) 1 mg PRN Q1HR PRN 06/22/19 15:45 Naloxone HCl (Narcan) 0.4 mg PRN Q2MIN PRN 06/22/19 15:45 Nicardipine HCl 50 mg/Sodium Chloride 250 ml @ 25 mls/hr CONT PRN 06/18/19 11:45 Norepinephrine Bitartrate 8 mg/ Dextrose 258 ml @ 20.027 mls/ hr CONT PRN 06/14/19 10:30 06/14/19 10:31 20.027 MLS/HR Nystatin (Nystop) 1 devorah PRN QID PRN 06/11/19 23:15 06/11/19 23:19 1 DEVORAH Ondansetron HCl (Zofran) 4 mg PRN Q6HRS PRN 06/22/19 15:45 Pantoprazole Sodium (PROTONIX VIAL for IV PUSH) 40 mg [id number] 06/13/19 21:00 07/02/19 06:02 40 MG Piperacillin Sod/ Tazobactam Sod (Zosyn Per Pharmacy) 1 each PRN DAILY PRN 06/12/19 13:15 06/12/19 19:16 DC Piperacillin Sod/ Tazobactam Sod 2.25 gm/Sodium Chloride 50 ml @ 100 mls/hr Q6HRS 06/12/19 13:30 06/12/19 19:15 DC 06/12/19 13:48 100 MLS/HR Potassium Chloride/Water 100 ml @ 50 mls/hr 1X ONCE 06/29/19 09:00 06/29/19 10:59 DC 06/29/19 08:57 50 MLS/HR Potassium Phosphate 10 mmol/ Magnesium Sulfate 5 meq/Calcium Gluconate 15 meq/ Multivitamins 10 ml/Chromium/ Copper/Manganese/ Seleni/Zn 0.5 ml/ Potassium Acetate 10 meq/Total Parenteral Nutrition/Amino Acids/Dextrose 1,920 ml @ 80 mls/hr TPN CONT 07/01/19 22:00 07/02/19 21:59 07/01/19 21:30 80 MLS/HR Potassium Phosphate 10 mmol/ Magnesium Sulfate 5 meq/Calcium Gluconate 15 meq/ Multivitamins 10 ml/Chromium/ Copper/Manganese/ Seleni/Zn 0.5 ml/ Potassium Acetate 20 meq/Total Parenteral Nutrition/Amino Acids/Dextrose 1,920 ml @ 80 mls/hr TPN CONT 06/30/19 22:00 07/01/19 21:59 DC 06/30/19 21:38 80 MLS/HR Potassium Phosphate 10 mmol/ Magnesium Sulfate 5 meq/Calcium Gluconate 15 meq/ Multivitamins 10 ml/Chromium/ Copper/Manganese/ Seleni/Zn 0.5 ml/ Potassium Acetate 20 meq/Total Parenteral Nutrition/Amino Acids/Dextrose/ Fat Emulsion Intravenous 1,920 ml @ 80 mls/hr TPN CONT 06/29/19 22:00 06/30/19 21:59 DC 06/29/19 21:32 80 MLS/HR Potassium Phosphate 10 mmol/ Magnesium Sulfate 5 meq/Calcium Gluconate 15 meq/ Multivitamins 10 ml/Chromium/ Copper/Manganese/ Seleni/Zn 0.5 ml/ Total Parenteral Nutrition/Amino Acids/Dextrose/ Fat Emulsion Intravenous 1,920 ml @ 80 mls/hr TPN CONT 06/27/19 22:00 06/28/19 21:59 DC 06/27/19 21:38 80 MLS/HR Potassium Phosphate 13.6 mmol/Calcium Gluconate 20 meq/ Multivitamins 10 ml/Chromium/ Copper/Manganese/ Seleni/Zn 0.5 ml/ Insulin Human Regular 10 unit/ Total Parenteral Nutrition/Amino Acids/Dextrose/ Fat Emulsion Intravenous 1,920 ml @ 80 mls/hr TPN CONT 06/21/19 22:00 06/22/19 21:59 DC 06/21/19 21:31 80 MLS/HR Potassium Phosphate 13.6 mmol/Magnesium Sulfate 10 meq/ Calcium Gluconate 20 meq/ Multivitamins 10 ml/Chromium/ Copper/Manganese/ Seleni/Zn 0.5 ml/ Total Parenteral Nutrition/Amino Acids/Dextrose/ Fat Emulsion Intravenous 1,920 ml @ 80 mls/hr TPN CONT 06/19/19 22:00 06/20/19 21:59 DC 06/19/19 21:31 80 MLS/HR Potassium Phosphate 13.6 mmol/Magnesium Sulfate 5 meq/ Calcium Gluconate 20 meq/ Multivitamins 10 ml/Chromium/ Copper/Manganese/ Seleni/Zn 0.5 ml/ Total Parenteral Nutrition/Amino Acids/Dextrose/ Fat Emulsion Intravenous 1,920 ml @ 80 mls/hr TPN CONT 06/22/19 22:00 06/23/19 21:59 DC 06/22/19 22:14 80 MLS/HR Prochlorperazine Edisylate (Compazine) 10 mg PRN Q8HRS PRN 06/11/19 12:00 06/12/19 14:59 10 MG Propofol 100 ml @ 6.588 mls/ hr CONT PRN 06/27/19 12:00 07/02/19 06:46 19.764 MLS/HR Ringer's Solution 1,000 ml @ 100 mls/hr Q10H 06/22/19 15:39 06/24/19 17:46 DC 06/23/19 22:06 100 MLS/HR Rocuronium Ider (Zemuron) 50 mg STK-MED ONCE 06/22/19 14:52 06/22/19 14:52 DC Sevoflurane (Ultane) 90 ml STK-MED ONCE 06/22/19 13:53 06/22/19 13:53 DC Sodium Bicarbonate 50 meq/Sodium Chloride 1,050 ml @ 150 mls/hr Q7H 06/12/19 11:00 06/13/19 14:48 DC 06/13/19 04:16 150 MLS/HR Sodium Bicarbonate (Sodium Bicarb Adult 8.4% Syr) 50 meq 1X ONCE 06/26/19 19:30 06/26/19 19:23 DC Sodium Chloride 500 ml @ 500 mls/hr 1X PRN PRN 06/26/19 19:00 Sodium Chloride (Normal Saline Flush) 3 ml QSHIFT PRN 06/22/19 15:45 Sodium Phosphate 10 mmol/Magnesium Sulfate 5 meq/ Calcium Gluconate 15 meq/ Multivitamins 10 ml/Chromium/ Copper/Manganese/ Seleni/Zn 0.5 ml/ Insulin Human Regular 10 unit/ Total Parenteral Nutrition/Amino Acids/Dextrose/ Fat Emulsion Intravenous 1,920 ml @ 80 mls/hr TPN CONT 06/23/19 22:00 06/24/19 21:59 DC 06/23/19 22:20 80 MLS/HR Sodium Phosphate 10 mmol/Magnesium Sulfate 5 meq/ Calcium Gluconate 15 meq/ Multivitamins 10 ml/Chromium/ Copper/Manganese/ Seleni/Zn 0.5 ml/ Total Parenteral Nutrition/Amino Acids/Dextrose/ Fat Emulsion Intravenous 1,920 ml @ 80 mls/hr TPN CONT 06/27/19 22:00 06/27/19 12:55 DC Succinylcholine Chloride (Anectine) 200 mg 1X ONCE 06/14/19 13:00 06/14/19 13:01 DC 06/14/19 12:59 200 MG Vecuronium Ider 50 mg/ Miscellaneous 50 ml @ 4.925 mls/ hr CONT PRN 06/22/19 15:00 06/25/19 05:19 4.925 MLS/HR Labs: Lab Laboratory Tests Test 07/01/19 08:00 07/01/19 08:30 07/01/19 08:39 07/01/19 09:36 O2 Saturation 97 % (92-99) Arterial Blood pH 7.42 (7.35-7.45) Arterial Blood pCO2 at Patient Temp 41 mmHg (35-46) Arterial Blood pO2 at Patient Temp 109 mmHg (75-108) Arterial Blood HCO3 26 mmol/L (21-28) Arterial Blood Base Excess 2 mmol/L (-3-3) FiO2 40 White Blood Count 15.7 x10^3/uL (4.0-11.0) Red Blood Count 2.74 x10^6/uL (4.30-5.70) Hemoglobin 7.9 g/dL (13.0-17.5) Hematocrit 24.5 % (39.0-53.0) Mean Corpuscular Volume 90 fL (79-100) Mean Corpuscular Hemoglobin 29 pg (25-35) Mean Corpuscular Hemoglobin Concent 32 g/dL (31-37) Red Cell Distribution Width 14.6 % (11.5-14.5) Platelet Count 355 x10^3/uL (140-400) Neutrophils (%) (Auto) 81 % (31-73) Lymphocytes (%) (Auto) 9 % (24-48) Monocytes (%) (Auto) 9 % (0-9) Eosinophils (%) (Auto) 1 % (0-3) Basophils (%) (Auto) 0 % (0-3) Neutrophils # (Auto) 12.7 x10^3/uL (1.8-7.7) Lymphocytes # (Auto) 1.4 x10^3/uL (1.0-4.8) Monocytes # (Auto) 1.4 x10^3/uL (0.0-1.1) Eosinophils # (Auto) 0.1 x10^3/uL (0.0-0.7) Basophils # (Auto) 0.1 x10^3/uL (0.0-0.2) Glucose (Fingerstick) 170 mg/dL (70-99) 181 mg/dL (70-99) Test 07/01/19 10:43 07/01/19 11:47 07/01/19 13:00 07/01/19 13:57 Glucose (Fingerstick) 203 mg/dL (70-99) 197 mg/dL (70-99) 156 mg/dL (70-99) 143 mg/dL (70-99) Test 07/01/19 14:59 07/01/19 16:18 07/01/19 17:28 07/01/19 18:31 Glucose (Fingerstick) 130 mg/dL (70-99) 121 mg/dL (70-99) 117 mg/dL (70-99) 116 mg/dL (70-99) Test 07/01/19 19:32 07/01/19 20:36 07/01/19 21:38 07/01/19 22:39 Glucose (Fingerstick) 145 mg/dL (70-99) 150 mg/dL (70-99) 140 mg/dL (70-99) 187 mg/dL (70-99) Test 07/01/19 23:43 07/02/19 00:45 07/02/19 01:48 07/02/19 02:51 Glucose (Fingerstick) 158 mg/dL (70-99) 154 mg/dL (70-99) 147 mg/dL (70-99) 143 mg/dL (70-99) Test 07/02/19 03:56 07/02/19 05:50 07/02/19 05:54 Glucose (Fingerstick) 135 mg/dL (70-99) 152 mg/dL (70-99) White Blood Count 15.0 x10^3/uL (4.0-11.0) Red Blood Count 2.73 x10^6/uL (4.30-5.70) Hemoglobin 7.9 g/dL (13.0-17.5) Hematocrit 24.1 % (39.0-53.0) Mean Corpuscular Volume 88 fL (79-100) Mean Corpuscular Hemoglobin 29 pg (25-35) Mean Corpuscular Hemoglobin Concent 33 g/dL (31-37) Red Cell Distribution Width 15.0 % (11.5-14.5) Platelet Count 376 x10^3/uL (140-400) Neutrophils (%) (Auto) 84 % (31-73) Lymphocytes (%) (Auto) 5 % (24-48) Monocytes (%) (Auto) 10 % (0-9) Eosinophils (%) (Auto) 1 % (0-3) Basophils (%) (Auto) 1 % (0-3) Neutrophils # (Auto) 12.5 x10^3/uL (1.8-7.7) Lymphocytes # (Auto) 0.8 x10^3/uL (1.0-4.8) Monocytes # (Auto) 1.5 x10^3/uL (0.0-1.1) Eosinophils # (Auto) 0.1 x10^3/uL (0.0-0.7) Basophils # (Auto) 0.1 x10^3/uL (0.0-0.2) Sodium Level 148 mmol/L (136-145) Potassium Level 3.8 mmol/L (3.5-5.1) Chloride Level 111 mmol/L (98-107) Carbon Dioxide Level 29 mmol/L (21-32) Anion Gap 8 (6-14) Blood Urea Nitrogen 57 mg/dL (8-26) Creatinine 1.0 mg/dL (0.7-1.3) Estimated GFR (Cockcroft-Gault) 96.1 BUN/Creatinine Ratio 57 (6-20) Glucose Level 159 mg/dL (70-99) Lactic Acid Level 1.5 mmol/L (0.4-2.0) Calcium Level 8.1 mg/dL (8.5-10.1) Magnesium Level 2.0 mg/dL (1.8-2.4) Total Bilirubin 5.4 mg/dL (0.2-1.0) Aspartate Amino Transf (AST/SGOT) 62 U/L (15-37) Alanine Aminotransferase (ALT/SGPT) 62 U/L (16-63) Alkaline Phosphatase 232 U/L (46-116) Total Protein 5.9 g/dL (6.4-8.2) Albumin 1.0 g/dL (3.4-5.0) Albumin/Globulin Ratio 0.2 (1.0-1.7) Objective: Assessment: . Fever could be clabsi vs other Leukocytosis Gallbladder stone pancreatitis s/p expl lap, pancreatic necrosectomy, cholecystostomy tube placement, G-tube placement with jejunal extension, 06/21 Loculated fluid collection along the anterior aspect of the pancreas measures 3.0 x 2.6 cm and fluid collection along the inferior aspect of the stomach measures 9.6 x 4.0 cm, on CT 06/21 Sepsis from GI - cult neg Acute Resp failure - s/p trach 06/21 Lactic acidosis. Acute kidney injury previously requiring dialysis - now with improved UOP, HDC ( 06/13) still in place Metabolic acidosis. Hypocalcemia Plan: Plan of Care Continue merrem, micafungin (06/19) and Zyvox( ) BC neg f/u cultures DC Central line or change if not done already Maintain aspiration precaution. May need re-imaging Gen surgery following D/w nursing Critically ill THUY GOODMAN MD Jul 02, 2019 07:55
[2019-07-02] MEDS: ALBUTEROL SULFATE 2.5 MG/3 ML NEBU. NEB SCH ×4 (08:03→21:01)
--- NOTE | 2019-07-02 08:24 | PDOC ---
PULMONARY PROGRESS NOTES Subjective SEDATED ON AC MODE Vitals Vital Signs Date Time Temp Pulse Resp B/P (MAP) Pulse Ox O2 Delivery O2 Flow Rate FiO2 07/02/19 08:17 84 20 105/62 (76) 100 Ventilator 07/02/19 07:09 98.2 98.2 07/01/19 14:23 3.0 HEENT: Other (nc at perrl nose clear, neck, trach site ok, no lad, no thyromegaly) Lungs: Crackles Cardiovascular: S1, S2 Abdomen: Other (/distended/firm ) Extremities: No Edema Skin: Warm Labs Laboratory Tests Test 06/30/19 08:45 06/30/19 08:48 06/30/19 10:57 06/30/19 12:01 O2 Saturation 97 % (92-99) Arterial Blood pH 7.45 (7.35-7.45) Arterial Blood pCO2 at Patient Temp 38 mmHg (35-46) Arterial Blood pO2 at Patient Temp 96 mmHg (75-108) Arterial Blood HCO3 26 mmol/L (21-28) Arterial Blood Base Excess 2 mmol/L (-3-3) FiO2 40 Glucose (Fingerstick) 143 mg/dL (70-99) 179 mg/dL (70-99) 167 mg/dL (70-99) Test 06/30/19 13:04 06/30/19 14:11 06/30/19 15:19 06/30/19 16:17 Glucose (Fingerstick) 150 mg/dL (70-99) 139 mg/dL (70-99) 126 mg/dL (70-99) 133 mg/dL (70-99) Test 06/30/19 17:21 06/30/19 18:16 06/30/19 19:26 06/30/19 20:08 Glucose (Fingerstick) 132 mg/dL (70-99) 141 mg/dL (70-99) 146 mg/dL (70-99) 131 mg/dL (70-99) Test 06/30/19 22:25 07/01/19 00:24 07/01/19 02:27 07/01/19 03:31 Glucose (Fingerstick) 146 mg/dL (70-99) 143 mg/dL (70-99) 118 mg/dL (70-99) 127 mg/dL (70-99) Test 07/01/19 04:32 07/01/19 05:50 07/01/19 06:10 07/01/19 07:28 Glucose (Fingerstick) 126 mg/dL (70-99) 142 mg/dL (70-99) 158 mg/dL (70-99) Sodium Level 148 mmol/L (136-145) Potassium Level 4.2 mmol/L (3.5-5.1) Chloride Level 111 mmol/L (98-107) Carbon Dioxide Level 29 mmol/L (21-32) Anion Gap 8 (6-14) Blood Urea Nitrogen 68 mg/dL (8-26) Creatinine 1.1 mg/dL (0.7-1.3) Estimated GFR (Cockcroft-Gault) 86.1 Glucose Level 156 mg/dL (70-99) Calcium Level 8.0 mg/dL (8.5-10.1) Test 07/01/19 08:00 07/01/19 08:30 07/01/19 08:39 07/01/19 09:36 O2 Saturation 97 % (92-99) Arterial Blood pH 7.42 (7.35-7.45) Arterial Blood pCO2 at Patient Temp 41 mmHg (35-46) Arterial Blood pO2 at Patient Temp 109 mmHg (75-108) Arterial Blood HCO3 26 mmol/L (21-28) Arterial Blood Base Excess 2 mmol/L (-3-3) FiO2 40 White Blood Count 15.7 x10^3/uL (4.0-11.0) Red Blood Count 2.74 x10^6/uL (4.30-5.70) Hemoglobin 7.9 g/dL (13.0-17.5) Hematocrit 24.5 % (39.0-53.0) Mean Corpuscular Volume 90 fL (79-100) Mean Corpuscular Hemoglobin 29 pg (25-35) Mean Corpuscular Hemoglobin Concent 32 g/dL (31-37) Red Cell Distribution Width 14.6 % (11.5-14.5) Platelet Count 355 x10^3/uL (140-400) Neutrophils (%) (Auto) 81 % (31-73) Lymphocytes (%) (Auto) 9 % (24-48) Monocytes (%) (Auto) 9 % (0-9) Eosinophils (%) (Auto) 1 % (0-3) Basophils (%) (Auto) 0 % (0-3) Neutrophils # (Auto) 12.7 x10^3/uL (1.8-7.7) Lymphocytes # (Auto) 1.4 x10^3/uL (1.0-4.8) Monocytes # (Auto) 1.4 x10^3/uL (0.0-1.1) Eosinophils # (Auto) 0.1 x10^3/uL (0.0-0.7) Basophils # (Auto) 0.1 x10^3/uL (0.0-0.2) Glucose (Fingerstick) 170 mg/dL (70-99) 181 mg/dL (70-99) Test 07/01/19 10:43 07/01/19 11:47 07/01/19 13:00 07/01/19 13:57 Glucose (Fingerstick) 203 mg/dL (70-99) 197 mg/dL (70-99) 156 mg/dL (70-99) 143 mg/dL (70-99) Test 07/01/19 14:59 07/01/19 16:18 07/01/19 17:28 07/01/19 18:31 Glucose (Fingerstick) 130 mg/dL (70-99) 121 mg/dL (70-99) 117 mg/dL (70-99) 116 mg/dL (70-99) Test 07/01/19 19:32 07/01/19 20:36 07/01/19 21:38 07/01/19 22:39 Glucose (Fingerstick) 145 mg/dL (70-99) 150 mg/dL (70-99) 140 mg/dL (70-99) 187 mg/dL (70-99) Test 07/01/19 23:43 07/02/19 00:45 07/02/19 01:48 07/02/19 02:51 Glucose (Fingerstick) 158 mg/dL (70-99) 154 mg/dL (70-99) 147 mg/dL (70-99) 143 mg/dL (70-99) Test 07/02/19 03:56 07/02/19 05:50 07/02/19 05:54 07/02/19 08:14 Glucose (Fingerstick) 135 mg/dL (70-99) 152 mg/dL (70-99) 154 mg/dL (70-99) White Blood Count 15.0 x10^3/uL (4.0-11.0) Red Blood Count 2.73 x10^6/uL (4.30-5.70) Hemoglobin 7.9 g/dL (13.0-17.5) Hematocrit 24.1 % (39.0-53.0) Mean Corpuscular Volume 88 fL (79-100) Mean Corpuscular Hemoglobin 29 pg (25-35) Mean Corpuscular Hemoglobin Concent 33 g/dL (31-37) Red Cell Distribution Width 15.0 % (11.5-14.5) Platelet Count 376 x10^3/uL (140-400) Neutrophils (%) (Auto) 84 % (31-73) Lymphocytes (%) (Auto) 5 % (24-48) Monocytes (%) (Auto) 10 % (0-9) Eosinophils (%) (Auto) 1 % (0-3) Basophils (%) (Auto) 1 % (0-3) Neutrophils # (Auto) 12.5 x10^3/uL (1.8-7.7) Lymphocytes # (Auto) 0.8 x10^3/uL (1.0-4.8) Monocytes # (Auto) 1.5 x10^3/uL (0.0-1.1) Eosinophils # (Auto) 0.1 x10^3/uL (0.0-0.7) Basophils # (Auto) 0.1 x10^3/uL (0.0-0.2) Sodium Level 148 mmol/L (136-145) Potassium Level 3.8 mmol/L (3.5-5.1) Chloride Level 111 mmol/L (98-107) Carbon Dioxide Level 29 mmol/L (21-32) Anion Gap 8 (6-14) Blood Urea Nitrogen 57 mg/dL (8-26) Creatinine 1.0 mg/dL (0.7-1.3) Estimated GFR (Cockcroft-Gault) 96.1 BUN/Creatinine Ratio 57 (6-20) Glucose Level 159 mg/dL (70-99) Lactic Acid Level 1.5 mmol/L (0.4-2.0) Calcium Level 8.1 mg/dL (8.5-10.1) Magnesium Level 2.0 mg/dL (1.8-2.4) Total Bilirubin 5.4 mg/dL (0.2-1.0) Aspartate Amino Transf (AST/SGOT) 62 U/L (15-37) Alanine Aminotransferase (ALT/SGPT) 62 U/L (16-63) Alkaline Phosphatase 232 U/L (46-116) Total Protein 5.9 g/dL (6.4-8.2) Albumin 1.0 g/dL (3.4-5.0) Albumin/Globulin Ratio 0.2 (1.0-1.7) Laboratory Tests Test 07/01/19 08:30 07/01/19 08:39 07/01/19 09:36 07/01/19 10:43 White Blood Count 15.7 x10^3/uL (4.0-11.0) Red Blood Count 2.74 x10^6/uL (4.30-5.70) Hemoglobin 7.9 g/dL (13.0-17.5) Hematocrit 24.5 % (39.0-53.0) Mean Corpuscular Volume 90 fL (79-100) Mean Corpuscular Hemoglobin 29 pg (25-35) Mean Corpuscular Hemoglobin Concent 32 g/dL (31-37) Red Cell Distribution Width 14.6 % (11.5-14.5) Platelet Count 355 x10^3/uL (140-400) Neutrophils (%) (Auto) 81 % (31-73) Lymphocytes (%) (Auto) 9 % (24-48) Monocytes (%) (Auto) 9 % (0-9) Eosinophils (%) (Auto) 1 % (0-3) Basophils (%) (Auto) 0 % (0-3) Neutrophils # (Auto) 12.7 x10^3/uL (1.8-7.7) Lymphocytes # (Auto) 1.4 x10^3/uL (1.0-4.8) Monocytes # (Auto) 1.4 x10^3/uL (0.0-1.1) Eosinophils # (Auto) 0.1 x10^3/uL (0.0-0.7) Basophils # (Auto) 0.1 x10^3/uL (0.0-0.2) Glucose (Fingerstick) 170 mg/dL (70-99) 181 mg/dL (70-99) 203 mg/dL (70-99) Test 07/01/19 11:47 07/01/19 13:00 07/01/19 13:57 07/01/19 14:59 Glucose (Fingerstick) 197 mg/dL (70-99) 156 mg/dL (70-99) 143 mg/dL (70-99) 130 mg/dL (70-99) Test 07/01/19 16:18 07/01/19 17:28 07/01/19 18:31 07/01/19 19:32 Glucose (Fingerstick) 121 mg/dL (70-99) 117 mg/dL (70-99) 116 mg/dL (70-99) 145 mg/dL (70-99) Test 07/01/19 20:36 07/01/19 21:38 07/01/19 22:39 07/01/19 23:43 Glucose (Fingerstick) 150 mg/dL (70-99) 140 mg/dL (70-99) 187 mg/dL (70-99) 158 mg/dL (70-99) Test 07/02/19 00:45 07/02/19 01:48 07/02/19 02:51 07/02/19 03:56 Glucose (Fingerstick) 154 mg/dL (70-99) 147 mg/dL (70-99) 143 mg/dL (70-99) 135 mg/dL (70-99) Test 07/02/19 05:50 07/02/19 05:54 07/02/19 08:14 White Blood Count 15.0 x10^3/uL (4.0-11.0) Red Blood Count 2.73 x10^6/uL (4.30-5.70) Hemoglobin 7.9 g/dL (13.0-17.5) Hematocrit 24.1 % (39.0-53.0) Mean Corpuscular Volume 88 fL (79-100) Mean Corpuscular Hemoglobin 29 pg (25-35) Mean Corpuscular Hemoglobin Concent 33 g/dL (31-37) Red Cell Distribution Width 15.0 % (11.5-14.5) Platelet Count 376 x10^3/uL (140-400) Neutrophils (%) (Auto) 84 % (31-73) Lymphocytes (%) (Auto) 5 % (24-48) Monocytes (%) (Auto) 10 % (0-9) Eosinophils (%) (Auto) 1 % (0-3) Basophils (%) (Auto) 1 % (0-3) Neutrophils # (Auto) 12.5 x10^3/uL (1.8-7.7) Lymphocytes # (Auto) 0.8 x10^3/uL (1.0-4.8) Monocytes # (Auto) 1.5 x10^3/uL (0.0-1.1) Eosinophils # (Auto) 0.1 x10^3/uL (0.0-0.7) Basophils # (Auto) 0.1 x10^3/uL (0.0-0.2) Sodium Level 148 mmol/L (136-145) Potassium Level 3.8 mmol/L (3.5-5.1) Chloride Level 111 mmol/L (98-107) Carbon Dioxide Level 29 mmol/L (21-32) Anion Gap 8 (6-14) Blood Urea Nitrogen 57 mg/dL (8-26) Creatinine 1.0 mg/dL (0.7-1.3) Estimated GFR (Cockcroft-Gault) 96.1 BUN/Creatinine Ratio 57 (6-20) Glucose Level 159 mg/dL (70-99) Lactic Acid Level 1.5 mmol/L (0.4-2.0) Calcium Level 8.1 mg/dL (8.5-10.1) Magnesium Level 2.0 mg/dL (1.8-2.4) Total Bilirubin 5.4 mg/dL (0.2-1.0) Aspartate Amino Transf (AST/SGOT) 62 U/L (15-37) Alanine Aminotransferase (ALT/SGPT) 62 U/L (16-63) Alkaline Phosphatase 232 U/L (46-116) Total Protein 5.9 g/dL (6.4-8.2) Albumin 1.0 g/dL (3.4-5.0) Albumin/Globulin Ratio 0.2 (1.0-1.7) Glucose (Fingerstick) 152 mg/dL (70-99) 154 mg/dL (70-99) Medications Active Scripts Medications Dose Route/Sig Max Daily Dose Days Date Category Comments CXR NO CHANGE Impression . IMPRESSION: 1. Acute hypoxemic respiratory failure, multifactorial. 2. Acute gallstone pancreatitis./ Necrosis. s/p Exploratory laparotomy, pancreatic necrosectomy, cholecystostomy tube placement, Gastrostomy placement with jejunal extension, tracheostomy placement (specifically 8 shiley cuffed) 06/21 3. Acute kidney failure. improving 4. Metabolic toxic encephalopathy. 5. Hyperkalemia.corrected 6. Metabolic / respiratory acidosis 7. Hypocalcemia. 8. POSSIBLE ABD COMPARTMENT SYNDROME , s/p Exp lap 9. HEP B S POSITIVE 10. Hypernatremia, resolved 11. LLL small effusion, monitor CXR IMPRESSION: 1. Stable bibasilar opacities. 2. Stable small left greater than right pleural effusions. 3. Life-support devices as above. Plan . NOT READY FOR TRIAL STILL RUNNING A FEVER THE LINES WHERE CHANGED TODAY WILL DEFER TO SURGERY REGARDING NEW SCANS D/W RN UPDATED FAMILY AT BEDSIDE AC MODE FOR NOW ANTIBX PER ID NUTRITION PER SURGERY PRN suctioning, BD DESTINI MATOS MD Jul 02, 2019 08:24
[2019-07-02] MEDS: FUROSEMIDE 40 MG/4 ML VIAL. IVP SCH (08:29)
[2019-07-02] MEDS: MICAFUNGIN 100 MG in IV DEXTROSE 5% 100ML 100 ML IV SCH (08:30)
[2019-07-02 08:46] LABS: BASE EXCESS ABG 3 mmol/L (-3-3); HCO3 ABG 28 mmol/L (21-28); PCO2 ABG 44 mmHg (35-46); PO2 ABG 96 mmHg (75-108); SAT O2 ABG 97 % (92-99)
[2019-07-02 08:56] LABS: FIO2 ABG 40
[2019-07-02] MEDS: fentaNYL HIGH DOSE PCA 55 ML IV PRN (09:07)
--- NOTE | 2019-07-02 09:32 | PDOC ---
SURGICAL PROGRESS NOTE Subjective Ceasar for Dr Dawson opens eyes Vital Signs Vital Signs Date Time Temp Pulse Resp B/P (MAP) Pulse Ox O2 Delivery O2 Flow Rate FiO2 07/02/19 09:26 102 20 123/75 (91) 100 Ventilator 07/02/19 09:07 3.0 07/02/19 07:09 98.2 98.2 I&O Intake and Output 07/02/19 07:05 Intake Total 3891 ml Output Total 4876 ml Balance -985 ml IV Total 3891 ml Output Urine Total 4200 ml Drainage Total 676 ml PATIENT HAS A LEPE: Yes Abdomen: Other (distended, firm, drains with serosanguineous output, IAP improved per RN) Labs Laboratory Tests Test 06/30/19 10:57 06/30/19 12:01 06/30/19 13:04 06/30/19 14:11 Glucose (Fingerstick) 179 mg/dL (70-99) 167 mg/dL (70-99) 150 mg/dL (70-99) 139 mg/dL (70-99) Test 06/30/19 15:19 06/30/19 16:17 06/30/19 17:21 06/30/19 18:16 Glucose (Fingerstick) 126 mg/dL (70-99) 133 mg/dL (70-99) 132 mg/dL (70-99) 141 mg/dL (70-99) Test 06/30/19 19:26 06/30/19 20:08 06/30/19 22:25 07/01/19 00:24 Glucose (Fingerstick) 146 mg/dL (70-99) 131 mg/dL (70-99) 146 mg/dL (70-99) 143 mg/dL (70-99) Test 07/01/19 02:27 07/01/19 03:31 07/01/19 04:32 07/01/19 05:50 Glucose (Fingerstick) 118 mg/dL (70-99) 127 mg/dL (70-99) 126 mg/dL (70-99) Sodium Level 148 mmol/L (136-145) Potassium Level 4.2 mmol/L (3.5-5.1) Chloride Level 111 mmol/L (98-107) Carbon Dioxide Level 29 mmol/L (21-32) Anion Gap 8 (6-14) Blood Urea Nitrogen 68 mg/dL (8-26) Creatinine 1.1 mg/dL (0.7-1.3) Estimated GFR (Cockcroft-Gault) 86.1 Glucose Level 156 mg/dL (70-99) Calcium Level 8.0 mg/dL (8.5-10.1) Test 07/01/19 06:10 07/01/19 07:28 07/01/19 08:00 07/01/19 08:30 Glucose (Fingerstick) 142 mg/dL (70-99) 158 mg/dL (70-99) O2 Saturation 97 % (92-99) Arterial Blood pH 7.42 (7.35-7.45) Arterial Blood pCO2 at Patient Temp 41 mmHg (35-46) Arterial Blood pO2 at Patient Temp 109 mmHg (75-108) Arterial Blood HCO3 26 mmol/L (21-28) Arterial Blood Base Excess 2 mmol/L (-3-3) FiO2 40 White Blood Count 15.7 x10^3/uL (4.0-11.0) Red Blood Count 2.74 x10^6/uL (4.30-5.70) Hemoglobin 7.9 g/dL (13.0-17.5) Hematocrit 24.5 % (39.0-53.0) Mean Corpuscular Volume 90 fL (79-100) Mean Corpuscular Hemoglobin 29 pg (25-35) Mean Corpuscular Hemoglobin Concent 32 g/dL (31-37) Red Cell Distribution Width 14.6 % (11.5-14.5) Platelet Count 355 x10^3/uL (140-400) Neutrophils (%) (Auto) 81 % (31-73) Lymphocytes (%) (Auto) 9 % (24-48) Monocytes (%) (Auto) 9 % (0-9) Eosinophils (%) (Auto) 1 % (0-3) Basophils (%) (Auto) 0 % (0-3) Neutrophils # (Auto) 12.7 x10^3/uL (1.8-7.7) Lymphocytes # (Auto) 1.4 x10^3/uL (1.0-4.8) Monocytes # (Auto) 1.4 x10^3/uL (0.0-1.1) Eosinophils # (Auto) 0.1 x10^3/uL (0.0-0.7) Basophils # (Auto) 0.1 x10^3/uL (0.0-0.2) Test 07/01/19 08:39 07/01/19 09:36 07/01/19 10:43 07/01/19 11:47 Glucose (Fingerstick) 170 mg/dL (70-99) 181 mg/dL (70-99) 203 mg/dL (70-99) 197 mg/dL (70-99) Test 07/01/19 13:00 07/01/19 13:57 07/01/19 14:59 07/01/19 16:18 Glucose (Fingerstick) 156 mg/dL (70-99) 143 mg/dL (70-99) 130 mg/dL (70-99) 121 mg/dL (70-99) Test 07/01/19 17:28 07/01/19 18:31 07/01/19 19:32 07/01/19 20:36 Glucose (Fingerstick) 117 mg/dL (70-99) 116 mg/dL (70-99) 145 mg/dL (70-99) 150 mg/dL (70-99) Test 07/01/19 21:38 07/01/19 22:39 07/01/19 23:43 07/02/19 00:45 Glucose (Fingerstick) 140 mg/dL (70-99) 187 mg/dL (70-99) 158 mg/dL (70-99) 154 mg/dL (70-99) Test 07/02/19 01:48 07/02/19 02:51 07/02/19 03:56 07/02/19 05:50 Glucose (Fingerstick) 147 mg/dL (70-99) 143 mg/dL (70-99) 135 mg/dL (70-99) White Blood Count 15.0 x10^3/uL (4.0-11.0) Red Blood Count 2.73 x10^6/uL (4.30-5.70) Hemoglobin 7.9 g/dL (13.0-17.5) Hematocrit 24.1 % (39.0-53.0) Mean Corpuscular Volume 88 fL (79-100) Mean Corpuscular Hemoglobin 29 pg (25-35) Mean Corpuscular Hemoglobin Concent 33 g/dL (31-37) Red Cell Distribution Width 15.0 % (11.5-14.5) Platelet Count 376 x10^3/uL (140-400) Neutrophils (%) (Auto) 84 % (31-73) Lymphocytes (%) (Auto) 5 % (24-48) Monocytes (%) (Auto) 10 % (0-9) Eosinophils (%) (Auto) 1 % (0-3) Basophils (%) (Auto) 1 % (0-3) Neutrophils # (Auto) 12.5 x10^3/uL (1.8-7.7) Lymphocytes # (Auto) 0.8 x10^3/uL (1.0-4.8) Monocytes # (Auto) 1.5 x10^3/uL (0.0-1.1) Eosinophils # (Auto) 0.1 x10^3/uL (0.0-0.7) Basophils # (Auto) 0.1 x10^3/uL (0.0-0.2) Sodium Level 148 mmol/L (136-145) Potassium Level 3.8 mmol/L (3.5-5.1) Chloride Level 111 mmol/L (98-107) Carbon Dioxide Level 29 mmol/L (21-32) Anion Gap 8 (6-14) Blood Urea Nitrogen 57 mg/dL (8-26) Creatinine 1.0 mg/dL (0.7-1.3) Estimated GFR (Cockcroft-Gault) 96.1 BUN/Creatinine Ratio 57 (6-20) Glucose Level 159 mg/dL (70-99) Lactic Acid Level 1.5 mmol/L (0.4-2.0) Calcium Level 8.1 mg/dL (8.5-10.1) Magnesium Level 2.0 mg/dL (1.8-2.4) Total Bilirubin 5.4 mg/dL (0.2-1.0) Aspartate Amino Transf (AST/SGOT) 62 U/L (15-37) Alanine Aminotransferase (ALT/SGPT) 62 U/L (16-63) Alkaline Phosphatase 232 U/L (46-116) Total Protein 5.9 g/dL (6.4-8.2) Albumin 1.0 g/dL (3.4-5.0) Albumin/Globulin Ratio 0.2 (1.0-1.7) Test 07/02/19 05:54 07/02/19 08:05 07/02/19 08:14 Glucose (Fingerstick) 152 mg/dL (70-99) 154 mg/dL (70-99) O2 Saturation 97 % (92-99) Arterial Blood pH 7.42 (7.35-7.45) Arterial Blood pCO2 at Patient Temp 44 mmHg (35-46) Arterial Blood pO2 at Patient Temp 96 mmHg (75-108) Arterial Blood HCO3 28 mmol/L (21-28) Arterial Blood Base Excess 3 mmol/L (-3-3) FiO2 40 Laboratory Tests Test 07/01/19 09:36 07/01/19 10:43 07/01/19 11:47 07/01/19 13:00 Glucose (Fingerstick) 181 mg/dL (70-99) 203 mg/dL (70-99) 197 mg/dL (70-99) 156 mg/dL (70-99) Test 07/01/19 13:57 07/01/19 14:59 07/01/19 16:18 07/01/19 17:28 Glucose (Fingerstick) 143 mg/dL (70-99) 130 mg/dL (70-99) 121 mg/dL (70-99) 117 mg/dL (70-99) Test 07/01/19 18:31 07/01/19 19:32 07/01/19 20:36 07/01/19 21:38 Glucose (Fingerstick) 116 mg/dL (70-99) 145 mg/dL (70-99) 150 mg/dL (70-99) 140 mg/dL (70-99) Test 07/01/19 22:39 07/01/19 23:43 07/02/19 00:45 07/02/19 01:48 Glucose (Fingerstick) 187 mg/dL (70-99) 158 mg/dL (70-99) 154 mg/dL (70-99) 147 mg/dL (70-99) Test 07/02/19 02:51 07/02/19 03:56 07/02/19 05:50 07/02/19 05:54 Glucose (Fingerstick) 143 mg/dL (70-99) 135 mg/dL (70-99) 152 mg/dL (70-99) White Blood Count 15.0 x10^3/uL (4.0-11.0) Red Blood Count 2.73 x10^6/uL (4.30-5.70) Hemoglobin 7.9 g/dL (13.0-17.5) Hematocrit 24.1 % (39.0-53.0) Mean Corpuscular Volume 88 fL (79-100) Mean Corpuscular Hemoglobin 29 pg (25-35) Mean Corpuscular Hemoglobin Concent 33 g/dL (31-37) Red Cell Distribution Width 15.0 % (11.5-14.5) Platelet Count 376 x10^3/uL (140-400) Neutrophils (%) (Auto) 84 % (31-73) Lymphocytes (%) (Auto) 5 % (24-48) Monocytes (%) (Auto) 10 % (0-9) Eosinophils (%) (Auto) 1 % (0-3) Basophils (%) (Auto) 1 % (0-3) Neutrophils # (Auto) 12.5 x10^3/uL (1.8-7.7) Lymphocytes # (Auto) 0.8 x10^3/uL (1.0-4.8) Monocytes # (Auto) 1.5 x10^3/uL (0.0-1.1) Eosinophils # (Auto) 0.1 x10^3/uL (0.0-0.7) Basophils # (Auto) 0.1 x10^3/uL (0.0-0.2) Sodium Level 148 mmol/L (136-145) Potassium Level 3.8 mmol/L (3.5-5.1) Chloride Level 111 mmol/L (98-107) Carbon Dioxide Level 29 mmol/L (21-32) Anion Gap 8 (6-14) Blood Urea Nitrogen 57 mg/dL (8-26) Creatinine 1.0 mg/dL (0.7-1.3) Estimated GFR (Cockcroft-Gault) 96.1 BUN/Creatinine Ratio 57 (6-20) Glucose Level 159 mg/dL (70-99) Lactic Acid Level 1.5 mmol/L (0.4-2.0) Calcium Level 8.1 mg/dL (8.5-10.1) Magnesium Level 2.0 mg/dL (1.8-2.4) Total Bilirubin 5.4 mg/dL (0.2-1.0) Aspartate Amino Transf (AST/SGOT) 62 U/L (15-37) Alanine Aminotransferase (ALT/SGPT) 62 U/L (16-63) Alkaline Phosphatase 232 U/L (46-116) Total Protein 5.9 g/dL (6.4-8.2) Albumin 1.0 g/dL (3.4-5.0) Albumin/Globulin Ratio 0.2 (1.0-1.7) Test 07/02/19 08:05 07/02/19 08:14 O2 Saturation 97 % (92-99) Arterial Blood pH 7.42 (7.35-7.45) Arterial Blood pCO2 at Patient Temp 44 mmHg (35-46) Arterial Blood pO2 at Patient Temp 96 mmHg (75-108) Arterial Blood HCO3 28 mmol/L (21-28) Arterial Blood Base Excess 3 mmol/L (-3-3) FiO2 40 Glucose (Fingerstick) 154 mg/dL (70-99) Problem List Problems Medical Problems: (1) Acute pancreatitis Status: Acute (2) Nausea & vomiting Status: Acute Assessment/Plan post op pancreatic necrosectomy vent dependent continue supportive care WILL BEJARANO MD Jul 02, 2019 09:32
--- NOTE | 2019-07-02 10:06 | PDOC ---
Objective: Objective: Reviewed w/ nurse, Dr. Mcdonough also present. Vital Signs: Vital Signs Date Time Temp Pulse Resp B/P (MAP) Pulse Ox O2 Delivery O2 Flow Rate FiO2 07/02/19 09:26 100 Ventilator 07/02/19 09:26 102 20 123/75 (91) 07/02/19 09:07 3.0 07/02/19 07:09 98.2 98.2 Labs: Laboratory Tests Test 07/01/19 10:43 07/01/19 11:47 07/01/19 13:00 07/01/19 13:57 Glucose (Fingerstick) 203 mg/dL 197 mg/dL 156 mg/dL 143 mg/dL Test 07/01/19 14:59 07/01/19 16:18 07/01/19 17:28 07/01/19 18:31 Glucose (Fingerstick) 130 mg/dL 121 mg/dL 117 mg/dL 116 mg/dL Test 07/01/19 19:32 07/01/19 20:36 07/01/19 21:38 07/01/19 22:39 Glucose (Fingerstick) 145 mg/dL 150 mg/dL 140 mg/dL 187 mg/dL Test 07/01/19 23:43 07/02/19 00:45 07/02/19 01:48 07/02/19 02:51 Glucose (Fingerstick) 158 mg/dL 154 mg/dL 147 mg/dL 143 mg/dL Test 07/02/19 03:56 07/02/19 05:50 07/02/19 05:54 07/02/19 08:05 Glucose (Fingerstick) 135 mg/dL 152 mg/dL White Blood Count 15.0 x10^3/uL Red Blood Count 2.73 x10^6/uL Hemoglobin 7.9 g/dL Hematocrit 24.1 % Mean Corpuscular Volume 88 fL Mean Corpuscular Hemoglobin 29 pg Mean Corpuscular Hemoglobin Concent 33 g/dL Red Cell Distribution Width 15.0 % Platelet Count 376 x10^3/uL Neutrophils (%) (Auto) 84 % Lymphocytes (%) (Auto) 5 % Monocytes (%) (Auto) 10 % Eosinophils (%) (Auto) 1 % Basophils (%) (Auto) 1 % Neutrophils # (Auto) 12.5 x10^3/uL Lymphocytes # (Auto) 0.8 x10^3/uL Monocytes # (Auto) 1.5 x10^3/uL Eosinophils # (Auto) 0.1 x10^3/uL Basophils # (Auto) 0.1 x10^3/uL Sodium Level 148 mmol/L Potassium Level 3.8 mmol/L Chloride Level 111 mmol/L Carbon Dioxide Level 29 mmol/L Anion Gap 8 Blood Urea Nitrogen 57 mg/dL Creatinine 1.0 mg/dL Estimated GFR (Cockcroft-Gault) 96.1 BUN/Creatinine Ratio 57 Glucose Level 159 mg/dL Lactic Acid Level 1.5 mmol/L Calcium Level 8.1 mg/dL Magnesium Level 2.0 mg/dL Total Bilirubin 5.4 mg/dL Aspartate Amino Transf (AST/SGOT) 62 U/L Alanine Aminotransferase (ALT/SGPT) 62 U/L Alkaline Phosphatase 232 U/L Total Protein 5.9 g/dL Albumin 1.0 g/dL Albumin/Globulin Ratio 0.2 O2 Saturation 97 % Arterial Blood pH 7.42 Arterial Blood pCO2 at Patient Temp 44 mmHg Arterial Blood pO2 at Patient Temp 96 mmHg Arterial Blood HCO3 28 mmol/L Arterial Blood Base Excess 3 mmol/L FiO2 40 Test 07/02/19 08:14 Glucose (Fingerstick) 154 mg/dL BLOOD CULTURE Preliminary NO GROWTH AFTER 1 DAY AFB SPECIMEN PROCESSING Final Concentration AFB CULTURE FINAL PENDING AFB CULTURE GRAM STAIN Final Negative Performed at: DA - [facility] [address], [place], [place] [id number] [employer] Banker: WOODY Roberson MD, Phone: [phone] FUNGAL CULTURE,OTHER Preliminary Preliminary report ANGELES CULT RES 1 Preliminary Comment No fungi isolated in 48 hours. PE: GEN: intubated LUNGS: clear HEART: RRR ABD: quiet BS, distended (betteR) NEURO/PSYCH: awake A/P: S/p pancreatic necrosectomy - intubated on TPN and IV PPI Elevated LFTs -- Will review w/ Dr. Coker. Hemodynamically unstable?: No Is patient in severe pain?: No Is NPO status required?: Yes PAXTON ALEXANDER Jul 02, 2019 10:06
[2019-07-02] MEDS: TPN PER PHARMACY MC PRN (10:19)
--- NOTE | 2019-07-02 10:19 | NUR ---
Pharmacy TPN Dosing Note S: CHRISTOPHER NEWSOME is a 49 year old M Currently receiving Central Continuous TPN started 06/19/19 B:Pertinent PMH: PANCREATITIS Height: 5 feet, 9 inches Weight: 107.8 kg Current diet: NPO LABS: Sodium: 148 Potassium: 3.8 Chloride: 111 Calcium: 8.1 Corrected Calcium: 10.50 Magnesium: 2 CO2: 29 SCr: 1 Glucose: 135-159 Albumin: 1.0 AST: 62 ALT: 62 TPN FORMULA: TPN TYPE: Central Continuous AMINO ACIDS: 145 gm DEXTROSE: 200 gm SODIUM PHOSPHATE: 10 mmol POTASSIUM ACETATE: 10 mEq POTASSIUM PHOSPHATE: 10 mmol MAGNESIUM: 5 mEq CALCIUM: 15 mEq MULTIPLE VITAMIN: 10 ml TRACE ELEMENTS: MTE 5 0.5 ml(s) TPN PLAN: Continue same TPN as yesterday. -BMP in AM R: Continue TPN as yesterday. Will monitor electrolytes, glucose, and tolerance to TPN. JULIA SALGADO [facility], 07/02/19 1019
--- NOTE | 2019-07-02 11:03 | NUR ---
PICC Pre-Insertion Note Allergies and reactions NKDA INR n/a BUN 57 Cr 1.0 Platelets 376 Blood culture done yes blood culture results no growth Order Verified yes Consent signed yes Previous PICC placement unknown Past Medical/Surgical history and current diagnosis reviewed yes Patient Medical /Surgical History Related to PICC line placement Infectious Disease consult Past central line or venous access device placement Special considerations for PICC line placement None PICC placement indication terminal make up operator antibiotic usage, Multiple/ Frequent blood draws, PICC nurse- Jessica Razo RN Addendum: 07/02/19 at 1156 by SHIKHA RAZO RN Amended: Links added.
--- NOTE | 2019-07-02 11:35 | NUR ---
PICC Insertion Note Procedure: Following complete explanation of the PICC procedure including the indications, risks, and potential complications, informed consent was obtained. The possibility for infection was discussed along with signs, symptoms, and prevention. All the questions were answered. Written and verbal patient education was provided. Hand hygiene performed. Standardized central line checklist was utilized. The patient was placed in the supine position, the arm was prepped with chlorhexidine and patient draped with maximum sterile barrier. 2 mL 1% lidocaine was infiltrated into the skin to provide local anesthesia. A thorough assessment of right upper extremity completed. Using real-time ultrasound guidance and standardized micro puncture set, the basilic vein was punctured and a peel away sheath was placed using the modified Seldinger technique. A tip location device was used to ensure adequate catheter placement. The catheter was secured using a securement device and an antimicrobial patch was applied directly on the insertion site followed by a transparent dressing. All ports withdraw blood and flush without resistance. Patient tolerated the procedure without apparent complication(s). Triple Lumen Power PICC placement successful and uncomplicated. Placement verified by EKG tip confirmation system and/or chest x-ray. Tip located in the CAJ/SVC. Complications: none Catheter trimmed at 45cm with 1cm visible at insertion site.
--- NOTE | 2019-07-02 11:45 | PDOC ---
[employer] PROGRESS NOTE Chief Complaint Chief Complaint Acute hypoxemic respiratory failure, multifactorial. Status post tracheostomy 5 drains Acute gallstone pancreatitis./ Necrosis Acute kidney failure. improving Metabolic toxic encephalopathy. Hyperkalemia.corrected Metabolic / respiratory acidosis Hypocalcemia. Hepatitis B Hypernatremia LLL small effusion, monitor Exploratory laparotomy, pancreatic necrosectomy, cholecystostomy tube placement, Gastrostomy placement with jejunal extension, tracheostomy placement (specifically 8 shiley cuffed) Specimans Obtained: pancreatic necrosis, saponification, gallstones Findings: diffuse peritonitis, 1.5 liters of ascites, diffuse saponification, viable viscera, mulitiple gallstones, normal liver History of Present Illness History of Present Illness [id number] Seen and examined in the ICU where he is on mechanical ventilation Assist-control/20/500/40% FiO2 Discussed with RN He is on IV micafungin GEN IV TPN IV insulin and IV fentanyl Extremely critically ill [id number] Patient seen and examined Discussed with aerospace assembler chart [id number] Patient seen and examined He remains critically ill in the ICU on the vent Discussed with his and his daughter and the RN Chart reviewed [id number] Patient seen and examined in the ICU He remains on the vent with assist control/20/500/40% FiO2 Discussed with RN Chart reviewed He is still critically ill [id number] Patient seen and examined in the ICU He remains critically ill intubated Vent: ac/ 20 /500/ 40% Chart reviewed Discussed with RN [id number] Patient seen and examined in the ICU He remains intubated Dr. Mcbride is here with me Discussed with RN Discussed with patient's brother Chart reviewed Patient remains mechanically intubated and sedated Extremely critically ill [id number] Patient seen and examined in the ICU He remains intubated and now on multiple drips Vent settings as follows assist-control/18/500/40% Discussed with RN Discussed with Dr. Smyth Chart reviewed He is critically ill [id number] Patient seen and examined in the ICU He is on the ventilator and sedated and paralyzed Discussed with RN Discussed with his Chart reviewed Exploratory laparotomy, pancreatic necrosectomy, cholecystostomy tube placement, Gastrostomy placement with jejunal extension, tracheostomy placement (specifically 8 shiley cuffed) 06/24/2019 Pt seen and examined in the ICU. Discussed with RN, Chart reviewed. Pt was sedated and currently being tried on room air. Ventilator setting as follows: AC/18/500/40% with peep of 5, but not in use during observation. Currently has [address] Vitals/I&O Vitals/I&O: Vital Signs Date Time Temp Pulse Resp B/P (MAP) Pulse Ox O2 Delivery O2 Flow Rate FiO2 07/02/19 10:57 100.8 93 20 131/69 (89) 98 Ventilator 100.8 07/02/19 09:37 3.0 I & O 07/01/19 07/01/19 07/02/19 15:00 23:00 07:00 Intake Total 450 ml 1878 ml 1563 ml Output Total 1900 ml 1481 ml 1495 ml Balance -1450 ml 397 ml 68 ml Physical Exam Physical Exam: GENERAL: Sedated, trached/vent HEENT: Pupils equal, OGT, NECK: Trach/vent LUNGS: Diminished aeration bases HEART: S1, S2, regular, no murmurs. ABDOMEN: Distended, fairly tight, bowel sounds present. drains x 4, wound vac in place : [place] EXTREMITIES: Trace edema, no cyanosis. SCDs bilaterally SKIN: Warm, dry. 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 LIEN SEARCHER: Sedated RIJ & RIJ/HD catheter (06/19) General: Other ([id number]) Heart: Regular rate, Normal S1, Normal S2, No murmurs, Gallops Lungs: Crackles Abdomen: Other (distended, firm, drains with serosanguineous output, IAP improved per RN) Extremities: No clubbing, No cyanosis, No edema, Normal pulses, No tenderness/swelling Skin: No significant lesion Labs Labs: Laboratory Tests Test 07/01/19 11:47 07/01/19 13:00 07/01/19 13:57 07/01/19 14:59 Glucose (Fingerstick) 197 mg/dL (70-99) 156 mg/dL (70-99) 143 mg/dL (70-99) 130 mg/dL (70-99) Test 07/01/19 16:18 07/01/19 17:28 07/01/19 18:31 07/01/19 19:32 Glucose (Fingerstick) 121 mg/dL (70-99) 117 mg/dL (70-99) 116 mg/dL (70-99) 145 mg/dL (70-99) Test 07/01/19 20:36 07/01/19 21:38 07/01/19 22:39 07/01/19 23:43 Glucose (Fingerstick) 150 mg/dL (70-99) 140 mg/dL (70-99) 187 mg/dL (70-99) 158 mg/dL (70-99) Test 07/02/19 00:45 07/02/19 01:48 07/02/19 02:51 07/02/19 03:56 Glucose (Fingerstick) 154 mg/dL (70-99) 147 mg/dL (70-99) 143 mg/dL (70-99) 135 mg/dL (70-99) Test 07/02/19 05:50 07/02/19 05:54 07/02/19 08:05 07/02/19 08:14 White Blood Count 15.0 x10^3/uL (4.0-11.0) Red Blood Count 2.73 x10^6/uL (4.30-5.70) Hemoglobin 7.9 g/dL (13.0-17.5) Hematocrit 24.1 % (39.0-53.0) Mean Corpuscular Volume 88 fL (79-100) Mean Corpuscular Hemoglobin 29 pg (25-35) Mean Corpuscular Hemoglobin Concent 33 g/dL (31-37) Red Cell Distribution Width 15.0 % (11.5-14.5) Platelet Count 376 x10^3/uL (140-400) Neutrophils (%) (Auto) 84 % (31-73) Lymphocytes (%) (Auto) 5 % (24-48) Monocytes (%) (Auto) 10 % (0-9) Eosinophils (%) (Auto) 1 % (0-3) Basophils (%) (Auto) 1 % (0-3) Neutrophils # (Auto) 12.5 x10^3/uL (1.8-7.7) Lymphocytes # (Auto) 0.8 x10^3/uL (1.0-4.8) Monocytes # (Auto) 1.5 x10^3/uL (0.0-1.1) Eosinophils # (Auto) 0.1 x10^3/uL (0.0-0.7) Basophils # (Auto) 0.1 x10^3/uL (0.0-0.2) Sodium Level 148 mmol/L (136-145) Potassium Level 3.8 mmol/L (3.5-5.1) Chloride Level 111 mmol/L (98-107) Carbon Dioxide Level 29 mmol/L (21-32) Anion Gap 8 (6-14) Blood Urea Nitrogen 57 mg/dL (8-26) Creatinine 1.0 mg/dL (0.7-1.3) Estimated GFR (Cockcroft-Gault) 96.1 BUN/Creatinine Ratio 57 (6-20) Glucose Level 159 mg/dL (70-99) Lactic Acid Level 1.5 mmol/L (0.4-2.0) Calcium Level 8.1 mg/dL (8.5-10.1) Magnesium Level 2.0 mg/dL (1.8-2.4) Total Bilirubin 5.4 mg/dL (0.2-1.0) Aspartate Amino Transf (AST/SGOT) 62 U/L (15-37) Alanine Aminotransferase (ALT/SGPT) 62 U/L (16-63) Alkaline Phosphatase 232 U/L (46-116) Total Protein 5.9 g/dL (6.4-8.2) Albumin 1.0 g/dL (3.4-5.0) Albumin/Globulin Ratio 0.2 (1.0-1.7) Glucose (Fingerstick) 152 mg/dL (70-99) 154 mg/dL (70-99) O2 Saturation 97 % (92-99) Arterial Blood pH 7.42 (7.35-7.45) Arterial Blood pCO2 at Patient Temp 44 mmHg (35-46) Arterial Blood pO2 at Patient Temp 96 mmHg (75-108) Arterial Blood HCO3 28 mmol/L (21-28) Arterial Blood Base Excess 3 mmol/L (-3-3) FiO2 40 Test 07/02/19 10:12 Glucose (Fingerstick) 143 mg/dL (70-99) Assessment and Plan Assessmemt and Plan Problems Medical Problems: (1) Acute pancreatitis Status: Acute (2) Nausea & vomiting Status: Acute Acute hypoxemic respiratory failure, multifactorial. Status post tracheostomy 5 drains Acute gallstone pancreatitis./ Necrosis Acute kidney failure. improving Metabolic toxic encephalopathy. Hyperkalemia.corrected Metabolic / respiratory acidosis Hypocalcemia. Hepatitis B Hypernatremia LLL small effusion, monitor Exploratory laparotomy, pancreatic necrosectomy, cholecystostomy tube placement, Gastrostomy placement with jejunal extension, tracheostomy placement (specifically 8 shiley cuffed) Plan: Continue ICU monitoring Continue to monitor intraabdominal pressures IV micafungin GEN IV insulin DVT prophylaxis Appreciate subspecialist input Vent weaning if possible IV antibiotics IV paralytics and IV sedatives Trend labs Wound care We are managing 5 drains He remains critically ill Prognosis guarded Total time 34 minutes Comment Review of Relevant I have reviewed the following items alexandra (where applicable) has been applied. Medications: Current Medications Medications (Trade) Dose Ordered Sig/Jesse Route PRN Reason Start Time Stop Time Status Last Admin Dose Admin Potassium Phosphate 10 mmol/ Magnesium Sulfate 5 meq/Calcium Gluconate 15 meq/ Multivitamins 10 ml/Chromium/ Copper/Manganese/ Seleni/Zn 0.5 ml/ Potassium Acetate 10 meq/Total Parenteral Nutrition/Amino Acids/Dextrose 1,920 ml @ 80 mls/hr TPN CONT IV 07/01/19 22:00 07/02/19 21:59 07/01/19 21:30 Hemodynamically unstable?: No Is patient in severe pain?: No Is NPO status required?: Yes JUSTIN WORKMAN III DO Jul 02, 2019 11:45
--- NOTE | 2019-07-02 11:52 | PDOC ---
Renal-Progress Notes Subjective Notes Notes NOTHING NEW History of Present Illness Hx of present illness STABLE Vitals Vitals Vital Signs Date Time Temp Pulse Resp B/P (MAP) Pulse Ox O2 Delivery O2 Flow Rate FiO2 07/02/19 10:57 100.8 93 20 131/69 (89) 98 Ventilator 100.8 07/02/19 09:37 3.0 Weight Weight [ ] I.O. Intake and Output Intake and Output 07/02/19 07:00 Intake Total 3891 ml Output Total 4876 ml Balance -985 ml IV Total 3891 ml Output Urine Total 4200 ml Drainage Total 676 ml Labs Labs Laboratory Tests Test 07/01/19 13:00 07/01/19 13:57 07/01/19 14:59 07/01/19 16:18 Glucose (Fingerstick) 156 mg/dL (70-99) 143 mg/dL (70-99) 130 mg/dL (70-99) 121 mg/dL (70-99) Test 07/01/19 17:28 07/01/19 18:31 07/01/19 19:32 07/01/19 20:36 Glucose (Fingerstick) 117 mg/dL (70-99) 116 mg/dL (70-99) 145 mg/dL (70-99) 150 mg/dL (70-99) Test 07/01/19 21:38 07/01/19 22:39 07/01/19 23:43 07/02/19 00:45 Glucose (Fingerstick) 140 mg/dL (70-99) 187 mg/dL (70-99) 158 mg/dL (70-99) 154 mg/dL (70-99) Test 07/02/19 01:48 07/02/19 02:51 07/02/19 03:56 07/02/19 05:50 Glucose (Fingerstick) 147 mg/dL (70-99) 143 mg/dL (70-99) 135 mg/dL (70-99) White Blood Count 15.0 x10^3/uL (4.0-11.0) Red Blood Count 2.73 x10^6/uL (4.30-5.70) Hemoglobin 7.9 g/dL (13.0-17.5) Hematocrit 24.1 % (39.0-53.0) Mean Corpuscular Volume 88 fL (79-100) Mean Corpuscular Hemoglobin 29 pg (25-35) Mean Corpuscular Hemoglobin Concent 33 g/dL (31-37) Red Cell Distribution Width 15.0 % (11.5-14.5) Platelet Count 376 x10^3/uL (140-400) Neutrophils (%) (Auto) 84 % (31-73) Lymphocytes (%) (Auto) 5 % (24-48) Monocytes (%) (Auto) 10 % (0-9) Eosinophils (%) (Auto) 1 % (0-3) Basophils (%) (Auto) 1 % (0-3) Neutrophils # (Auto) 12.5 x10^3/uL (1.8-7.7) Lymphocytes # (Auto) 0.8 x10^3/uL (1.0-4.8) Monocytes # (Auto) 1.5 x10^3/uL (0.0-1.1) Eosinophils # (Auto) 0.1 x10^3/uL (0.0-0.7) Basophils # (Auto) 0.1 x10^3/uL (0.0-0.2) Sodium Level 148 mmol/L (136-145) Potassium Level 3.8 mmol/L (3.5-5.1) Chloride Level 111 mmol/L (98-107) Carbon Dioxide Level 29 mmol/L (21-32) Anion Gap 8 (6-14) Blood Urea Nitrogen 57 mg/dL (8-26) Creatinine 1.0 mg/dL (0.7-1.3) Estimated GFR (Cockcroft-Gault) 96.1 BUN/Creatinine Ratio 57 (6-20) Glucose Level 159 mg/dL (70-99) Lactic Acid Level 1.5 mmol/L (0.4-2.0) Calcium Level 8.1 mg/dL (8.5-10.1) Magnesium Level 2.0 mg/dL (1.8-2.4) Total Bilirubin 5.4 mg/dL (0.2-1.0) Aspartate Amino Transf (AST/SGOT) 62 U/L (15-37) Alanine Aminotransferase (ALT/SGPT) 62 U/L (16-63) Alkaline Phosphatase 232 U/L (46-116) Total Protein 5.9 g/dL (6.4-8.2) Albumin 1.0 g/dL (3.4-5.0) Albumin/Globulin Ratio 0.2 (1.0-1.7) Test 07/02/19 05:54 07/02/19 08:05 07/02/19 08:14 07/02/19 10:12 Glucose (Fingerstick) 152 mg/dL (70-99) 154 mg/dL (70-99) 143 mg/dL (70-99) O2 Saturation 97 % (92-99) Arterial Blood pH 7.42 (7.35-7.45) Arterial Blood pCO2 at Patient Temp 44 mmHg (35-46) Arterial Blood pO2 at Patient Temp 96 mmHg (75-108) Arterial Blood HCO3 28 mmol/L (21-28) Arterial Blood Base Excess 3 mmol/L (-3-3) FiO2 40 Micro Micro Microbiology 06/30/19 Blood Culture - Preliminary, Resulted NO GROWTH AFTER 2 DAYS 06/23/19 - Final, Complete 06/23/19 - Final, Complete 06/23/19 - Final, Complete 06/23/19 Gram Stain Evaluation - Final, Complete 06/23/19 Sputum Culture - Final, Complete 06/23/19 Sputum Result 1 - Final, Complete 06/22/19 AFB Specimen Processing Tissue - Final, Resulted 06/22/19 Acid Fast Bacilli Culture, Resulted Pending 06/22/19 Gram Stain - Final, Resulted 06/22/19 Fungal Culture - Preliminary, Resulted 06/22/19 Fungal Culture Result 1 - Preliminary, Resulted Review of Systems Constitutional: yes: unresponsive Physical Exam General Appearance: no apparent distress Skin: warm Respiratory: decreased breath sounds Heart: S1S2 Abdomen: distension, other (NO BS) Genitourinary: bladder flat Extremities: pulses present Neurology: other (sedated) Assessment Assessment IMP FABIOLA - RESOLVED HYPERNATREMIA-MILD WORSENING LFT'S LEUCOCYTOSIS GB STONE PANCREATITIS ACUTE RESP FAILURE MET ACIDOSIS-RESOLVED S/P EXP LAP AND THEN PANCREATIC NECROSECTOMY WITH DRAINS MILD HYPERVOLEMIA PLAN CONT TPN-CHANGES PER PHARMACY CONT ANTIBIOTICS WILL SIGN OFF PLEASE CALL IF NEEDED BERE QUIROZ MD Jul 02, 2019 11:52
[2019-07-02] MEDS: IV NORMAL SALINE 1000ML BAG 1,000 ML IV SCH (15:39)
[2019-07-02] MEDS: INSULIN REGULAR VIAL 100 UNIT in IV NORMAL SALINE 100ML 100 ML IV PRN (18:55)
--- NOTE | 2019-07-02 19:09 | NUR ---
Tried to give patient a sedation vacation. Patient started to over breath the vent and increased HR. He would not calm down and kept trying to sit up. Restarted patient's sedation again.
[2019-07-02] MEDS: INSULIN GLARGINE SYRINGE. SQ SCH (20:46)
[2019-07-02] MEDS ORDERED: DEXTROSE 70% IV SCH ×8 (22:00)
[2019-07-02] MEDS ORDERED: AMINO ACID IV SCH ×8 (22:00)
[2019-07-02] MEDS ORDERED: [UNRECOGNIZED DRUG - OTHER] IV SCH ×8 (22:00)
[2019-07-02] MEDS ORDERED: TOTAL PARENTERAL NUTRITION IV SCH ×8 (22:00)
[2019-07-03] VITALS (23 sets, daily range): BP systolic 88–135; BP diastolic 54–77
[2019-07-03] MEDS: DEXMEDETOMIDINE 400 MCG in IV NORMAL SALINE 100ML 96 ML IV PRN ×10 (00:06→23:12)
[2019-07-03] MEDS: PROPOFOL 100 ML IV PRN ×6 (03:03→23:13)
[2019-07-03] MEDS: MEROPENEM 500 MG in IV NORMAL SALINE 50ML 50 ML IV SCH ×3 (06:03→18:34)
[2019-07-03] MEDS: PANTOPRAZOLE IV PUSH 40 MG VIAL. IVP SCH ×2 (06:03→18:35)
[2019-07-03] MEDS: ENOXAPARIN 40 MG/0.4 ML SYRINGE. SQ SCH (06:04)
[2019-07-03 06:34] LABS: BASO % 0 % (0-3); CALCIUM 8.2 mg/dL (8.5-10.1); EOS # 0.1 x10^3/uL (0.0-0.7); EOS % 1 % (0-3); GFR 96.1; HEMATOCRIT 24.3 % (39.0-53.0); HEMOGLOBIN 7.7 g/dL (13.0-17.5); LYMPH % 7 % (24-48); MEAN CORPUSCULAR HEMOGLOBIN 28 pg (25-35); MEAN CORPUSCULAR HGB CONC 32 g/dL (31-37); MEAN CORPUSCULAR VOLUME 90 fL (79-100); MONO # 1.4 x10^3/uL (0.0-1.1); MONO % 10 % (0-9); NEUT # 11.3 x10^3/uL (1.8-7.7); NEUT % 82 % (31-73); PLATELET COUNT 414 x10^3/uL (140-400); POTASSIUM 3.6 mmol/L (3.5-5.1); RED BLOOD COUNT 2.71 x10^6/uL (4.30-5.70); WHITE BLOOD COUNT 13.9 x10^3/uL (4.0-11.0)
--- NOTE | 2019-07-03 07:39 | RAD ---
EXAM: Chest, single view. HISTORY: Endotracheal tube placement. COMPARISON: 07/02/2019 FINDINGS: A frontal view of the chest is obtained. There is a tracheostomy device in expected position. There is a nasogastric tube within the stomach. There is a right internal jugular catheter with the tip in the right atrium. There is a right PICC with the tip in the right atrium. There has been removal of a right internal jugular catheter. There is stable diffuse interstitial infiltrate with small pleural effusions. The heart is normal in size. There is no pneumothorax. IMPRESSION: 1. Stable diffuse infiltrate and small pleural effusions. 2. Interval placement of a right PICC. The tip is in the superior right cavoatrial junction. There has been removal of one of 2 right internal jugular catheters. The remainder of the support lines and tubes are unchanged. Electronically signed by: Kimberly Parker MD (07/03/2019 7:36 AM) [id number]
--- NOTE | 2019-07-03 08:02 | PDOC ---
Infectious Disease Note Subjective: Subjective Sedated, on vent on 40% Fio2 TPN T max 100.8 Vital Signs: Vital Signs Vital Signs Date Time Temp Pulse Resp B/P (MAP) Pulse Ox O2 Delivery O2 Flow Rate FiO2 07/03/19 06:06 98 Ventilator 07/03/19 06:00 71 20 95/60 (72) 07/03/19 03:00 98.8 98.8 07/02/19 09:37 3.0 Physical Exam: PHYSICAL EXAM GENERAL: Sedated, trached/vent HEENT: Pupils equal, OGT, NECK: Trach/vent LUNGS: Diminished aeration bases HEART: S1, S2, regular, no murmurs. ABDOMEN: Distended, fairly tight, bowel sounds present. drains x 4, wound vac in place : [place] + EXTREMITIES: Trace edema, no cyanosis. SCDs bilaterally SKIN: Warm, dry. 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 RIJ/HD catheter (06/19) RT IJ removed RT PICC line clean Medications: Inpatient Meds: Current Medications Medications (Trade) Dose Ordered Sig/Jesse Start Time Stop Time Status Last Admin Dose Admin Acetaminophen (Tylenol Supp) 650 mg PRN Q6HRS PRN 06/14/19 20:00 06/29/19 20:31 650 MG Albumin Human 500 ml @ As Directed STK-MED ONCE 06/22/19 13:25 06/22/19 13:25 DC Albuterol Sulfate (Ventolin Neb Soln) 2.5 mg RTQID 06/22/19 08:00 07/02/19 21:01 2.5 MG Amino Acids/ Electrolytes/ Dextrose 1,000 ml @ 80 mls/hr [id number] 06/12/19 10:15 06/18/19 13:50 DC Amino Acids/ Glycerin/ Electrolytes 1,000 ml @ 80 mls/hr [id number] 06/12/19 10:00 UNV Atropine Sulfate (ATROPINE 0.5mg SYRINGE) 0.5 mg PRN Q5MIN PRN 06/26/19 19:00 Calcium Chloride 2000 mg/Sodium Chloride 120 ml @ 240 mls/hr PRN QID PRN 06/14/19 10:15 06/15/19 09:58 DC 06/15/19 08:32 240 MLS/HR Calcium Gluconate (Calcium Gluconate) 1,000 mg 1X ONCE 06/22/19 19:45 06/22/19 20:15 DC Calcium Gluconate 1000 mg/Sodium Chloride 110 ml @ 220 mls/hr 1X ONCE 06/22/19 20:15 06/22/19 20:44 DC 06/22/19 20:36 220 MLS/HR Calcium Gluconate 5000 mg/Sodium Chloride 250 ml @ 28.782 mls/ hr CONT PRN 06/15/19 09:30 06/18/19 13:50 DC 06/18/19 06:12 28.782 MLS/HR Calcium Gluconate 13629 mg/Sodium Chloride 494 ml @ 4.051 mls/ hr CONT PRN 06/15/19 09:30 06/15/19 09:23 DC Cefoxitin Sodium (Mefoxin) 2 gm 1X PREOP ONCE 06/22/19 11:30 06/22/19 11:31 DC 06/22/19 11:37 2 GM Cellulose (Surgicel Hemostat 4x8) 1 each STK-MED ONCE 06/22/19 12:46 06/22/19 14:25 DC 06/22/19 12:46 1 EACH Chlorhexidine Gluconate (Peridex) 15 ml BID 06/14/19 21:00 07/01/19 16:34 DC 06/30/19 20:47 15 ML Dexamethasone Sodium Phosphate (Decadron) 4 mg STK-MED ONCE 06/22/19 11:45 06/22/19 11:45 DC Dexmedetomidine HCl 400 mcg/ Sodium Chloride 100 ml @ 0 mls/hr CONT PRN 06/26/19 19:00 07/03/19 05:13 38.6 MLS/HR Dextrose (Dextrose 50%-Water Syringe) 25 gm 1X ONCE 06/22/19 19:45 06/22/19 19:57 DC 06/22/19 20:37 25 GM Enoxaparin Sodium (Lovenox 40mg Syringe) 40 mg Q24H 06/23/19 06:00 07/03/19 06:04 40 MG Etomidate (Amidate) 14 mg 1X ONCE 06/14/19 13:00 06/14/19 13:01 DC 06/14/19 12:59 14 MG Fentanyl Citrate 55 ml @ 1.98 mls/hr CONT PRN 06/24/19 11:45 07/02/19 09:07 1.98 MLS/HR Fentanyl Citrate (Fentanyl 2ml Vial) 100 mcg 1X ONCE 06/14/19 13:00 06/14/19 13:01 DC 06/14/19 12:58 100 MCG Fentanyl Citrate (Fentanyl 600 Mcg/30 ml ADVERTISEMENT DISTRIBUTOR) 600 mcg STK-MED ONCE 06/15/19 05:30 06/18/19 12:07 DC Furosemide (Lasix) 40 mg DAILY 06/27/19 12:00 07/02/19 08:29 40 MG Hydralazine HCl (Apresoline Inj) 10 mg PRN Q4HRS PRN 06/19/19 11:45 06/26/19 15:43 10 MG Hydromorphone HCl (Dilaudid) 1 mg PRN Q2HRS PRN 06/11/19 12:00 06/29/19 07:35 1 MG Info (CONTRAST GIVEN -- Rx MONITORING) 1 each PRN DAILY PRN 06/22/19 08:15 06/24/19 08:14 DC Info (PHARMACY MONITORING -- do not chart) 1 each PRN DAILY PRN 06/14/19 09:00 06/14/19 09:06 DC Info (Tpn Per Pharmacy) 1 each PRN DAILY PRN 06/19/19 11:15 07/02/19 10:19 1 EACH Insulin Glargine (Lantus Syringe) 20 unit QHS 06/21/19 21:00 07/02/19 20:46 20 UNIT Insulin Human Lispro (HumaLOG) 0-7 UNITS Q4HRS 06/15/19 00:15 07/01/19 16:41 DC 06/23/19 08:05 7 UNITS Insulin Human Regular (HumuLIN R VIAL) 10 unit 1X ONCE 06/22/19 19:45 06/22/19 19:57 DC 06/22/19 20:45 10 UNIT Insulin Human Regular 100 unit/ Sodium Chloride 101 ml @ 0 mls/hr CONT PRN 06/23/19 12:15 07/02/19 18:55 2 MLS/HR Iohexol (Omnipaque 240 Mg/ml) 30 ml 1X ONCE 06/22/19 08:00 06/22/19 08:05 DC Iohexol (Omnipaque 300 Mg/ml) 75 ml 1X ONCE 06/22/19 08:00 06/22/19 08:01 Cancel Iohexol (Omnipaque 350 Mg/ml) 100 ml 1X ONCE 06/11/19 04:45 06/11/19 04:46 DC 06/11/19 05:01 100 ML Labetalol HCl (Normodyne Iv Push) 20 mg PRN Q2HR PRN 06/19/19 11:45 06/26/19 14:44 20 MG Lidocaine HCl (Buffered Lidocaine 1%) 6 ml 1X ONCE 06/13/19 09:30 06/13/19 09:31 DC 06/13/19 09:23 6 ML Lidocaine HCl (Lidocaine Pf 2% Vial) 5 ml STK-MED ONCE 06/14/19 12:00 06/17/19 10:37 DC Linezolid/Dextrose 300 ml @ 300 mls/hr Q12HR 06/14/19 21:00 07/02/19 20:34 300 MLS/HR Lorazepam (Ativan Inj) 1 mg PRN Q6HRS PRN 06/11/19 18:15 06/29/19 07:48 1 MG Magnesium Sulfate 50 ml @ 25 mls/hr PRN DAILY PRN 06/14/19 10:30 Meropenem 500 mg/ Sodium Chloride 50 ml @ 100 mls/hr Q6HRS 06/18/19 07:30 07/03/19 06:03 100 MLS/HR Metoprolol Tartrate (Lopressor Vial) 5 mg 1X ONCE 06/18/19 12:15 06/18/19 12:16 DC Micafungin Sodium 100 mg/Dextrose 100 ml @ 100 mls/hr Q24H 06/20/19 09:00 07/02/19 08:30 100 MLS/HR Midazolam HCl (Versed) 5 mg 1X ONCE 06/14/19 13:00 06/14/19 13:01 DC 06/14/19 12:59 5 MG Midazolam HCl 50 mg/Sodium Chloride 50 ml @ 0 mls/hr CONT PRN 06/14/19 12:45 06/26/19 19:35 2 MLS/HR Morphine Sulfate (Morphine Sulfate) 1 mg PRN Q1HR PRN 06/22/19 15:45 Naloxone HCl (Narcan) 0.4 mg PRN Q2MIN PRN 06/22/19 15:45 Nicardipine HCl 50 mg/Sodium Chloride 250 ml @ 25 mls/hr CONT PRN 06/18/19 11:45 Norepinephrine Bitartrate 8 mg/ Dextrose 258 ml @ 20.027 mls/ hr CONT PRN 06/14/19 10:30 06/14/19 10:31 20.027 MLS/HR Nystatin (Nystop) 1 devorah PRN QID PRN 06/11/19 23:15 06/11/19 23:19 1 DEVORAH Ondansetron HCl (Zofran) 4 mg PRN Q6HRS PRN 06/22/19 15:45 Pantoprazole Sodium (PROTONIX VIAL for IV PUSH) 40 mg [id number] 06/13/19 21:00 07/03/19 06:03 40 MG Piperacillin Sod/ Tazobactam Sod (Zosyn Per Pharmacy) 1 each PRN DAILY PRN 06/12/19 13:15 06/12/19 19:16 DC Piperacillin Sod/ Tazobactam Sod 2.25 gm/Sodium Chloride 50 ml @ 100 mls/hr Q6HRS 06/12/19 13:30 06/12/19 19:15 DC 06/12/19 13:48 100 MLS/HR Potassium Chloride/Water 100 ml @ 50 mls/hr 1X ONCE 06/29/19 09:00 06/29/19 10:59 DC 06/29/19 08:57 50 MLS/HR Potassium Phosphate 10 mmol/ Magnesium Sulfate 5 meq/Calcium Gluconate 15 meq/ Multivitamins 10 ml/Chromium/ Copper/Manganese/ Seleni/Zn 0.5 ml/ Potassium Acetate 10 meq/Total Parenteral Nutrition/Amino Acids/Dextrose 1,920 ml @ 80 mls/hr TPN CONT 07/02/19 22:00 07/03/19 21:59 07/02/19 21:36 80 MLS/HR Potassium Phosphate 10 mmol/ Magnesium Sulfate 5 meq/Calcium Gluconate 15 meq/ Multivitamins 10 ml/Chromium/ Copper/Manganese/ Seleni/Zn 0.5 ml/ Potassium Acetate 20 meq/Total Parenteral Nutrition/Amino Acids/Dextrose 1,920 ml @ 80 mls/hr TPN CONT 06/30/19 22:00 07/01/19 21:59 DC 06/30/19 21:38 80 MLS/HR Potassium Phosphate 10 mmol/ Magnesium Sulfate 5 meq/Calcium Gluconate 15 meq/ Multivitamins 10 ml/Chromium/ Copper/Manganese/ Seleni/Zn 0.5 ml/ Potassium Acetate 20 meq/Total Parenteral Nutrition/Amino Acids/Dextrose/ Fat Emulsion Intravenous 1,920 ml @ 80 mls/hr TPN CONT 06/29/19 22:00 06/30/19 21:59 DC 06/29/19 21:32 80 MLS/HR Potassium Phosphate 10 mmol/ Magnesium Sulfate 5 meq/Calcium Gluconate 15 meq/ Multivitamins 10 ml/Chromium/ Copper/Manganese/ Seleni/Zn 0.5 ml/ Total Parenteral Nutrition/Amino Acids/Dextrose/ Fat Emulsion Intravenous 1,920 ml @ 80 mls/hr TPN CONT 06/27/19 22:00 06/28/19 21:59 DC 06/27/19 21:38 80 MLS/HR Potassium Phosphate 13.6 mmol/Calcium Gluconate 20 meq/ Multivitamins 10 ml/Chromium/ Copper/Manganese/ Seleni/Zn 0.5 ml/ Insulin Human Regular 10 unit/ Total Parenteral Nutrition/Amino Acids/Dextrose/ Fat Emulsion Intravenous 1,920 ml @ 80 mls/hr TPN CONT 06/21/19 22:00 06/22/19 21:59 DC 06/21/19 21:31 80 MLS/HR Potassium Phosphate 13.6 mmol/Magnesium Sulfate 10 meq/ Calcium Gluconate 20 meq/ Multivitamins 10 ml/Chromium/ Copper/Manganese/ Seleni/Zn 0.5 ml/ Total Parenteral Nutrition/Amino Acids/Dextrose/ Fat Emulsion Intravenous 1,920 ml @ 80 mls/hr TPN CONT 06/19/19 22:00 06/20/19 21:59 DC 06/19/19 21:31 80 MLS/HR Potassium Phosphate 13.6 mmol/Magnesium Sulfate 5 meq/ Calcium Gluconate 20 meq/ Multivitamins 10 ml/Chromium/ Copper/Manganese/ Seleni/Zn 0.5 ml/ Total Parenteral Nutrition/Amino Acids/Dextrose/ Fat Emulsion Intravenous 1,920 ml @ 80 mls/hr TPN CONT 06/22/19 22:00 06/23/19 21:59 DC 06/22/19 22:14 80 MLS/HR Prochlorperazine Edisylate (Compazine) 10 mg PRN Q8HRS PRN 06/11/19 12:00 06/12/19 14:59 10 MG Propofol 100 ml @ 6.588 mls/ hr CONT PRN 06/27/19 12:00 07/03/19 06:26 23.058 MLS/HR Ringer's Solution 1,000 ml @ 100 mls/hr Q10H 06/22/19 15:39 06/24/19 17:46 DC 06/23/19 22:06 100 MLS/HR Rocuronium [place] (Zemuron) 50 mg STK-MED ONCE 06/22/19 14:52 06/22/19 14:52 DC Sevoflurane (Ultane) 90 ml STK-MED ONCE 06/22/19 13:53 06/22/19 13:53 DC Sodium Bicarbonate 50 meq/Sodium Chloride 1,050 ml @ 150 mls/hr Q7H 06/12/19 11:00 06/13/19 14:48 DC 06/13/19 04:16 150 MLS/HR Sodium Bicarbonate (Sodium Bicarb Adult 8.4% Syr) 50 meq 1X ONCE 06/26/19 19:30 06/26/19 19:23 DC Sodium Chloride 500 ml @ 500 mls/hr 1X PRN PRN 06/26/19 19:00 Sodium Chloride (Normal Saline Flush) 3 ml QSHIFT PRN 06/22/19 15:45 Sodium Phosphate 10 mmol/Magnesium Sulfate 5 meq/ Calcium Gluconate 15 meq/ Multivitamins 10 ml/Chromium/ Copper/Manganese/ Seleni/Zn 0.5 ml/ Insulin Human Regular 10 unit/ Total Parenteral Nutrition/Amino Acids/Dextrose/ Fat Emulsion Intravenous 1,920 ml @ 80 mls/hr TPN CONT 06/23/19 22:00 06/24/19 21:59 DC 06/23/19 22:20 80 MLS/HR Sodium Phosphate 10 mmol/Magnesium Sulfate 5 meq/ Calcium Gluconate 15 meq/ Multivitamins 10 ml/Chromium/ Copper/Manganese/ Seleni/Zn 0.5 ml/ Total Parenteral Nutrition/Amino Acids/Dextrose/ Fat Emulsion Intravenous 1,920 ml @ 80 mls/hr TPN CONT 06/27/19 22:00 06/27/19 12:55 DC Succinylcholine Chloride (Anectine) 200 mg 1X ONCE 06/14/19 13:00 06/14/19 13:01 DC 06/14/19 12:59 200 MG Vecuronium [place] 50 mg/ Miscellaneous 50 ml @ 4.925 mls/ hr CONT PRN 06/22/19 15:00 06/25/19 05:19 4.925 MLS/HR Labs: Lab Laboratory Tests Test 07/02/19 08:05 07/02/19 08:14 07/02/19 10:12 07/02/19 12:26 O2 Saturation 97 % (92-99) Arterial Blood pH 7.42 (7.35-7.45) Arterial Blood pCO2 at Patient Temp 44 mmHg (35-46) Arterial Blood pO2 at Patient Temp 96 mmHg (75-108) Arterial Blood HCO3 28 mmol/L (21-28) Arterial Blood Base Excess 3 mmol/L (-3-3) FiO2 40 Glucose (Fingerstick) 154 mg/dL (70-99) 143 mg/dL (70-99) 140 mg/dL (70-99) Test 07/02/19 14:36 07/02/19 16:41 07/02/19 18:36 07/02/19 19:41 Glucose (Fingerstick) 151 mg/dL (70-99) 150 mg/dL (70-99) 125 mg/dL (70-99) 138 mg/dL (70-99) Test 07/02/19 20:45 07/02/19 21:48 07/02/19 22:49 07/02/19 23:53 Glucose (Fingerstick) 134 mg/dL (70-99) 155 mg/dL (70-99) 152 mg/dL (70-99) 155 mg/dL (70-99) Test 07/03/19 01:54 07/03/19 06:00 07/03/19 06:07 07/03/19 07:43 Glucose (Fingerstick) 136 mg/dL (70-99) 129 mg/dL (70-99) 153 mg/dL (70-99) White Blood Count 13.9 x10^3/uL (4.0-11.0) Red Blood Count 2.71 x10^6/uL (4.30-5.70) Hemoglobin 7.7 g/dL (13.0-17.5) Hematocrit 24.3 % (39.0-53.0) Mean Corpuscular Volume 90 fL (79-100) Mean Corpuscular Hemoglobin 28 pg (25-35) Mean Corpuscular Hemoglobin Concent 32 g/dL (31-37) Red Cell Distribution Width 15.0 % (11.5-14.5) Platelet Count 414 x10^3/uL (140-400) Neutrophils (%) (Auto) 82 % (31-73) Lymphocytes (%) (Auto) 7 % (24-48) Monocytes (%) (Auto) 10 % (0-9) Eosinophils (%) (Auto) 1 % (0-3) Basophils (%) (Auto) 0 % (0-3) Neutrophils # (Auto) 11.3 x10^3/uL (1.8-7.7) Lymphocytes # (Auto) 1.0 x10^3/uL (1.0-4.8) Monocytes # (Auto) 1.4 x10^3/uL (0.0-1.1) Eosinophils # (Auto) 0.1 x10^3/uL (0.0-0.7) Basophils # (Auto) 0.0 x10^3/uL (0.0-0.2) Sodium Level 148 mmol/L (136-145) Potassium Level 3.6 mmol/L (3.5-5.1) Chloride Level 111 mmol/L (98-107) Carbon Dioxide Level 28 mmol/L (21-32) Anion Gap 9 (6-14) Blood Urea Nitrogen 54 mg/dL (8-26) Creatinine 1.0 mg/dL (0.7-1.3) Estimated GFR (Cockcroft-Gault) 96.1 Glucose Level 142 mg/dL (70-99) Calcium Level 8.2 mg/dL (8.5-10.1) Objective: Assessment: . Fever Leukocytosis Gallbladder stone pancreatitis s/p expl lap, pancreatic necrosectomy, cholecystostomy tube placement, G-tube placement with jejunal extension, 06/21 Loculated fluid collection along the anterior aspect of the pancreas measures 3.0 x 2.6 cm and fluid collection along the inferior aspect of the stomach measures 9.6 x 4.0 cm, on CT 3 Sepsis from GI - cult neg Acute Resp failure - s/p trach 3 Lactic acidosis. Acute kidney injury previously requiring dialysis - now with improved UOP, HDC (2/28) still in place Metabolic acidosis. Hypocalcemia Plan: Plan of Care Continue merrem, micafungin (06/19) DC Zyvox( ) start daptomycin ( 07/02) BC neg f/u cultures DC RT HDC if able Maintain aspiration precaution. May need repeat ct imaging Gen surgery following D/w nursing Critically ill THUY GOODMAN MD Jul 03, 2019 08:01
[2019-07-03] MEDS: ALBUTEROL SULFATE 2.5 MG/3 ML NEBU. NEB SCH ×4 (08:19→20:31)
[2019-07-03] MEDS: MICAFUNGIN 100 MG in IV DEXTROSE 5% 100ML 100 ML IV SCH (08:35)
[2019-07-03] MEDS: fentaNYL HIGH DOSE PCA 55 ML IV PRN (08:37)
[2019-07-03 08:42] LABS: BASE EXCESS ABG 0 mmol/L (-3-3); HCO3 ABG 25 mmol/L (21-28); PCO2 ABG 40 mmHg (35-46); PO2 ABG 97 mmHg (75-108); SAT O2 ABG 97 % (92-99)
[2019-07-03 08:44] LABS: FIO2 ABG 40
[2019-07-03] MEDS: FUROSEMIDE 40 MG/4 ML VIAL. IVP SCH (08:51)
--- NOTE | 2019-07-03 09:02 | PDOC ---
PULMONARY PROGRESS NOTES Subjective SEDATED ON AC MODE Vitals Vital Signs Date Time Temp Pulse Resp B/P (MAP) Pulse Ox O2 Delivery O2 Flow Rate FiO2 07/03/19 08:37 100 3.0 07/03/19 08:20 Ventilator 07/03/19 06:00 71 20 95/60 (72) 07/03/19 03:00 98.8 98.8 HEENT: Other (nc at perrl nose clear, neck, trach site ok, no lad, no thyromegaly) Lungs: Crackles Cardiovascular: S1, S2 Abdomen: Other (/distended/firm ) Extremities: No Edema Skin: Warm Labs Laboratory Tests Test 07/01/19 09:36 07/01/19 10:43 07/01/19 11:47 07/01/19 13:00 Glucose (Fingerstick) 181 mg/dL (70-99) 203 mg/dL (70-99) 197 mg/dL (70-99) 156 mg/dL (70-99) Test 07/01/19 13:57 07/01/19 14:59 07/01/19 16:18 07/01/19 17:28 Glucose (Fingerstick) 143 mg/dL (70-99) 130 mg/dL (70-99) 121 mg/dL (70-99) 117 mg/dL (70-99) Test 07/01/19 18:31 07/01/19 19:32 07/01/19 20:36 07/01/19 21:38 Glucose (Fingerstick) 116 mg/dL (70-99) 145 mg/dL (70-99) 150 mg/dL (70-99) 140 mg/dL (70-99) Test 07/01/19 22:39 07/01/19 23:43 07/02/19 00:45 07/02/19 01:48 Glucose (Fingerstick) 187 mg/dL (70-99) 158 mg/dL (70-99) 154 mg/dL (70-99) 147 mg/dL (70-99) Test 07/02/19 02:51 07/02/19 03:56 07/02/19 05:50 07/02/19 05:54 Glucose (Fingerstick) 143 mg/dL (70-99) 135 mg/dL (70-99) 152 mg/dL (70-99) White Blood Count 15.0 x10^3/uL (4.0-11.0) Red Blood Count 2.73 x10^6/uL (4.30-5.70) Hemoglobin 7.9 g/dL (13.0-17.5) Hematocrit 24.1 % (39.0-53.0) Mean Corpuscular Volume 88 fL (79-100) Mean Corpuscular Hemoglobin 29 pg (25-35) Mean Corpuscular Hemoglobin Concent 33 g/dL (31-37) Red Cell Distribution Width 15.0 % (11.5-14.5) Platelet Count 376 x10^3/uL (140-400) Neutrophils (%) (Auto) 84 % (31-73) Lymphocytes (%) (Auto) 5 % (24-48) Monocytes (%) (Auto) 10 % (0-9) Eosinophils (%) (Auto) 1 % (0-3) Basophils (%) (Auto) 1 % (0-3) Neutrophils # (Auto) 12.5 x10^3/uL (1.8-7.7) Lymphocytes # (Auto) 0.8 x10^3/uL (1.0-4.8) Monocytes # (Auto) 1.5 x10^3/uL (0.0-1.1) Eosinophils # (Auto) 0.1 x10^3/uL (0.0-0.7) Basophils # (Auto) 0.1 x10^3/uL (0.0-0.2) Sodium Level 148 mmol/L (136-145) Potassium Level 3.8 mmol/L (3.5-5.1) Chloride Level 111 mmol/L (98-107) Carbon Dioxide Level 29 mmol/L (21-32) Anion Gap 8 (6-14) Blood Urea Nitrogen 57 mg/dL (8-26) Creatinine 1.0 mg/dL (0.7-1.3) Estimated GFR (Cockcroft-Gault) 96.1 BUN/Creatinine Ratio 57 (6-20) Glucose Level 159 mg/dL (70-99) Lactic Acid Level 1.5 mmol/L (0.4-2.0) Calcium Level 8.1 mg/dL (8.5-10.1) Magnesium Level 2.0 mg/dL (1.8-2.4) Total Bilirubin 5.4 mg/dL (0.2-1.0) Aspartate Amino Transf (AST/SGOT) 62 U/L (15-37) Alanine Aminotransferase (ALT/SGPT) 62 U/L (16-63) Alkaline Phosphatase 232 U/L (46-116) Total Protein 5.9 g/dL (6.4-8.2) Albumin 1.0 g/dL (3.4-5.0) Albumin/Globulin Ratio 0.2 (1.0-1.7) Test 07/02/19 08:05 07/02/19 08:14 07/02/19 10:12 07/02/19 12:26 O2 Saturation 97 % (92-99) Arterial Blood pH 7.42 (7.35-7.45) Arterial Blood pCO2 at Patient Temp 44 mmHg (35-46) Arterial Blood pO2 at Patient Temp 96 mmHg (75-108) Arterial Blood HCO3 28 mmol/L (21-28) Arterial Blood Base Excess 3 mmol/L (-3-3) FiO2 40 Glucose (Fingerstick) 154 mg/dL (70-99) 143 mg/dL (70-99) 140 mg/dL (70-99) Test 07/02/19 14:36 07/02/19 16:41 07/02/19 18:36 07/02/19 19:41 Glucose (Fingerstick) 151 mg/dL (70-99) 150 mg/dL (70-99) 125 mg/dL (70-99) 138 mg/dL (70-99) Test 07/02/19 20:45 07/02/19 21:48 07/02/19 22:49 07/02/19 23:53 Glucose (Fingerstick) 134 mg/dL (70-99) 155 mg/dL (70-99) 152 mg/dL (70-99) 155 mg/dL (70-99) Test 07/03/19 01:54 07/03/19 06:00 07/03/19 06:07 07/03/19 07:43 Glucose (Fingerstick) 136 mg/dL (70-99) 129 mg/dL (70-99) 153 mg/dL (70-99) White Blood Count 13.9 x10^3/uL (4.0-11.0) Red Blood Count 2.71 x10^6/uL (4.30-5.70) Hemoglobin 7.7 g/dL (13.0-17.5) Hematocrit 24.3 % (39.0-53.0) Mean Corpuscular Volume 90 fL (79-100) Mean Corpuscular Hemoglobin 28 pg (25-35) Mean Corpuscular Hemoglobin Concent 32 g/dL (31-37) Red Cell Distribution Width 15.0 % (11.5-14.5) Platelet Count 414 x10^3/uL (140-400) Neutrophils (%) (Auto) 82 % (31-73) Lymphocytes (%) (Auto) 7 % (24-48) Monocytes (%) (Auto) 10 % (0-9) Eosinophils (%) (Auto) 1 % (0-3) Basophils (%) (Auto) 0 % (0-3) Neutrophils # (Auto) 11.3 x10^3/uL (1.8-7.7) Lymphocytes # (Auto) 1.0 x10^3/uL (1.0-4.8) Monocytes # (Auto) 1.4 x10^3/uL (0.0-1.1) Eosinophils # (Auto) 0.1 x10^3/uL (0.0-0.7) Basophils # (Auto) 0.0 x10^3/uL (0.0-0.2) Sodium Level 148 mmol/L (136-145) Potassium Level 3.6 mmol/L (3.5-5.1) Chloride Level 111 mmol/L (98-107) Carbon Dioxide Level 28 mmol/L (21-32) Anion Gap 9 (6-14) Blood Urea Nitrogen 54 mg/dL (8-26) Creatinine 1.0 mg/dL (0.7-1.3) Estimated GFR (Cockcroft-Gault) 96.1 Glucose Level 142 mg/dL (70-99) Calcium Level 8.2 mg/dL (8.5-10.1) Test 07/03/19 08:30 O2 Saturation 97 % (92-99) Arterial Blood pH 7.41 (7.35-7.45) Arterial Blood pCO2 at Patient Temp 40 mmHg (35-46) Arterial Blood pO2 at Patient Temp 97 mmHg (75-108) Arterial Blood HCO3 25 mmol/L (21-28) Arterial Blood Base Excess 0 mmol/L (-3-3) FiO2 40 Laboratory Tests Test 07/02/19 10:12 07/02/19 12:26 07/02/19 14:36 07/02/19 16:41 Glucose (Fingerstick) 143 mg/dL (70-99) 140 mg/dL (70-99) 151 mg/dL (70-99) 150 mg/dL (70-99) Test 07/02/19 18:36 07/02/19 19:41 07/02/19 20:45 07/02/19 21:48 Glucose (Fingerstick) 125 mg/dL (70-99) 138 mg/dL (70-99) 134 mg/dL (70-99) 155 mg/dL (70-99) Test 07/02/19 22:49 07/02/19 23:53 07/03/19 01:54 07/03/19 06:00 Glucose (Fingerstick) 152 mg/dL (70-99) 155 mg/dL (70-99) 136 mg/dL (70-99) White Blood Count 13.9 x10^3/uL (4.0-11.0) Red Blood Count 2.71 x10^6/uL (4.30-5.70) Hemoglobin 7.7 g/dL (13.0-17.5) Hematocrit 24.3 % (39.0-53.0) Mean Corpuscular Volume 90 fL (79-100) Mean Corpuscular Hemoglobin 28 pg (25-35) Mean Corpuscular Hemoglobin Concent 32 g/dL (31-37) Red Cell Distribution Width 15.0 % (11.5-14.5) Platelet Count 414 x10^3/uL (140-400) Neutrophils (%) (Auto) 82 % (31-73) Lymphocytes (%) (Auto) 7 % (24-48) Monocytes (%) (Auto) 10 % (0-9) Eosinophils (%) (Auto) 1 % (0-3) Basophils (%) (Auto) 0 % (0-3) Neutrophils # (Auto) 11.3 x10^3/uL (1.8-7.7) Lymphocytes # (Auto) 1.0 x10^3/uL (1.0-4.8) Monocytes # (Auto) 1.4 x10^3/uL (0.0-1.1) Eosinophils # (Auto) 0.1 x10^3/uL (0.0-0.7) Basophils # (Auto) 0.0 x10^3/uL (0.0-0.2) Sodium Level 148 mmol/L (136-145) Potassium Level 3.6 mmol/L (3.5-5.1) Chloride Level 111 mmol/L (98-107) Carbon Dioxide Level 28 mmol/L (21-32) Anion Gap 9 (6-14) Blood Urea Nitrogen 54 mg/dL (8-26) Creatinine 1.0 mg/dL (0.7-1.3) Estimated GFR (Cockcroft-Gault) 96.1 Glucose Level 142 mg/dL (70-99) Calcium Level 8.2 mg/dL (8.5-10.1) Test 07/03/19 06:07 07/03/19 07:43 07/03/19 08:30 Glucose (Fingerstick) 129 mg/dL (70-99) 153 mg/dL (70-99) O2 Saturation 97 % (92-99) Arterial Blood pH 7.41 (7.35-7.45) Arterial Blood pCO2 at Patient Temp 40 mmHg (35-46) Arterial Blood pO2 at Patient Temp 97 mmHg (75-108) Arterial Blood HCO3 25 mmol/L (21-28) Arterial Blood Base Excess 0 mmol/L (-3-3) FiO2 40 Medications Active Scripts Medications Dose Route/Sig Max Daily Dose Days Date Category Comments CXR NO CHANGE Impression . IMPRESSION: 1. Acute hypoxemic respiratory failure, multifactorial. 2. Acute gallstone pancreatitis./ Necrosis. s/p Exploratory laparotomy, pancreatic necrosectomy, cholecystostomy tube placement, Gastrostomy placement with jejunal extension, tracheostomy placement (specifically 8 shiley cuffed) 06/21 3. Acute kidney failure. improving 4. Metabolic toxic encephalopathy. 5. Hyperkalemia.corrected 6. Metabolic / respiratory acidosis 7. Hypocalcemia. 8. POSSIBLE ABD COMPARTMENT SYNDROME , s/p Exp lap 9. HEP B S POSITIVE 10. Hypernatremia, resolved 11. LLL small effusion, monitor 12. FEVER PER ID CXR IMPRESSION: 1. Stable bibasilar opacities. 2. Stable small left greater than right pleural effusions. 3. Life-support devices as above. Plan . WILL CONTINUE SAME SUPPORT, NOT READY FOR TRIAL STILL TENUOUS SITUATION AM CXR AC MODE ANTI BX PER ID FOLLOW SURGERY INPUT DESTINI MATOS MD Jul 03, 2019 09:02
[2019-07-03 09:17] LABS: PHOSPHORUS 3.9 mg/dL (2.6-4.7)
--- NOTE | 2019-07-03 10:07 | PDOC ---
G I PROGRESS NOTE Subjective Sedated on ventilator. Agitated when try to lift sedation. Objective Staff wonder re: clamping OG and see if gastrostomy adequate for drainage. Physical Exam Lungs clear anteriorly. RRR Abdomen seems less distended by far, but still firm. Hear no bowel sounds. Review of Relevant I have reviewed the following items alexandra (where applicable) has been applied. Labs Laboratory Tests Test 07/01/19 10:43 07/01/19 11:47 07/01/19 13:00 07/01/19 13:57 Glucose (Fingerstick) 203 mg/dL (70-99) 197 mg/dL (70-99) 156 mg/dL (70-99) 143 mg/dL (70-99) Test 07/01/19 14:59 07/01/19 16:18 07/01/19 17:28 07/01/19 18:31 Glucose (Fingerstick) 130 mg/dL (70-99) 121 mg/dL (70-99) 117 mg/dL (70-99) 116 mg/dL (70-99) Test 07/01/19 19:32 07/01/19 20:36 07/01/19 21:38 07/01/19 22:39 Glucose (Fingerstick) 145 mg/dL (70-99) 150 mg/dL (70-99) 140 mg/dL (70-99) 187 mg/dL (70-99) Test 07/01/19 23:43 07/02/19 00:45 07/02/19 01:48 07/02/19 02:51 Glucose (Fingerstick) 158 mg/dL (70-99) 154 mg/dL (70-99) 147 mg/dL (70-99) 143 mg/dL (70-99) Test 07/02/19 03:56 07/02/19 05:50 07/02/19 05:54 07/02/19 08:05 Glucose (Fingerstick) 135 mg/dL (70-99) 152 mg/dL (70-99) White Blood Count 15.0 x10^3/uL (4.0-11.0) Red Blood Count 2.73 x10^6/uL (4.30-5.70) Hemoglobin 7.9 g/dL (13.0-17.5) Hematocrit 24.1 % (39.0-53.0) Mean Corpuscular Volume 88 fL (79-100) Mean Corpuscular Hemoglobin 29 pg (25-35) Mean Corpuscular Hemoglobin Concent 33 g/dL (31-37) Red Cell Distribution Width 15.0 % (11.5-14.5) Platelet Count 376 x10^3/uL (140-400) Neutrophils (%) (Auto) 84 % (31-73) Lymphocytes (%) (Auto) 5 % (24-48) Monocytes (%) (Auto) 10 % (0-9) Eosinophils (%) (Auto) 1 % (0-3) Basophils (%) (Auto) 1 % (0-3) Neutrophils # (Auto) 12.5 x10^3/uL (1.8-7.7) Lymphocytes # (Auto) 0.8 x10^3/uL (1.0-4.8) Monocytes # (Auto) 1.5 x10^3/uL (0.0-1.1) Eosinophils # (Auto) 0.1 x10^3/uL (0.0-0.7) Basophils # (Auto) 0.1 x10^3/uL (0.0-0.2) Sodium Level 148 mmol/L (136-145) Potassium Level 3.8 mmol/L (3.5-5.1) Chloride Level 111 mmol/L (98-107) Carbon Dioxide Level 29 mmol/L (21-32) Anion Gap 8 (6-14) Blood Urea Nitrogen 57 mg/dL (8-26) Creatinine 1.0 mg/dL (0.7-1.3) Estimated GFR (Cockcroft-Gault) 96.1 BUN/Creatinine Ratio 57 (6-20) Glucose Level 159 mg/dL (70-99) Lactic Acid Level 1.5 mmol/L (0.4-2.0) Calcium Level 8.1 mg/dL (8.5-10.1) Magnesium Level 2.0 mg/dL (1.8-2.4) Total Bilirubin 5.4 mg/dL (0.2-1.0) Aspartate Amino Transf (AST/SGOT) 62 U/L (15-37) Alanine Aminotransferase (ALT/SGPT) 62 U/L (16-63) Alkaline Phosphatase 232 U/L (46-116) Total Protein 5.9 g/dL (6.4-8.2) Albumin 1.0 g/dL (3.4-5.0) Albumin/Globulin Ratio 0.2 (1.0-1.7) O2 Saturation 97 % (92-99) Arterial Blood pH 7.42 (7.35-7.45) Arterial Blood pCO2 at Patient Temp 44 mmHg (35-46) Arterial Blood pO2 at Patient Temp 96 mmHg (75-108) Arterial Blood HCO3 28 mmol/L (21-28) Arterial Blood Base Excess 3 mmol/L (-3-3) FiO2 40 Test 07/02/19 08:14 07/02/19 10:12 07/02/19 12:26 07/02/19 14:36 Glucose (Fingerstick) 154 mg/dL (70-99) 143 mg/dL (70-99) 140 mg/dL (70-99) 151 mg/dL (70-99) Test 07/02/19 16:41 07/02/19 18:36 07/02/19 19:41 07/02/19 20:45 Glucose (Fingerstick) 150 mg/dL (70-99) 125 mg/dL (70-99) 138 mg/dL (70-99) 134 mg/dL (70-99) Test 07/02/19 21:48 07/02/19 22:49 07/02/19 23:53 07/03/19 01:54 Glucose (Fingerstick) 155 mg/dL (70-99) 152 mg/dL (70-99) 155 mg/dL (70-99) 136 mg/dL (70-99) Test 07/03/19 06:00 07/03/19 06:07 07/03/19 07:43 07/03/19 08:30 White Blood Count 13.9 x10^3/uL (4.0-11.0) Red Blood Count 2.71 x10^6/uL (4.30-5.70) Hemoglobin 7.7 g/dL (13.0-17.5) Hematocrit 24.3 % (39.0-53.0) Mean Corpuscular Volume 90 fL (79-100) Mean Corpuscular Hemoglobin 28 pg (25-35) Mean Corpuscular Hemoglobin Concent 32 g/dL (31-37) Red Cell Distribution Width 15.0 % (11.5-14.5) Platelet Count 414 x10^3/uL (140-400) Neutrophils (%) (Auto) 82 % (31-73) Lymphocytes (%) (Auto) 7 % (24-48) Monocytes (%) (Auto) 10 % (0-9) Eosinophils (%) (Auto) 1 % (0-3) Basophils (%) (Auto) 0 % (0-3) Neutrophils # (Auto) 11.3 x10^3/uL (1.8-7.7) Lymphocytes # (Auto) 1.0 x10^3/uL (1.0-4.8) Monocytes # (Auto) 1.4 x10^3/uL (0.0-1.1) Eosinophils # (Auto) 0.1 x10^3/uL (0.0-0.7) Basophils # (Auto) 0.0 x10^3/uL (0.0-0.2) Sodium Level 148 mmol/L (136-145) Potassium Level 3.6 mmol/L (3.5-5.1) Chloride Level 111 mmol/L (98-107) Carbon Dioxide Level 28 mmol/L (21-32) Anion Gap 9 (6-14) Blood Urea Nitrogen 54 mg/dL (8-26) Creatinine 1.0 mg/dL (0.7-1.3) Estimated GFR (Cockcroft-Gault) 96.1 Glucose Level 142 mg/dL (70-99) Calcium Level 8.2 mg/dL (8.5-10.1) Phosphorus Level 3.9 mg/dL (2.6-4.7) Magnesium Level 2.0 mg/dL (1.8-2.4) Albumin 1.0 g/dL (3.4-5.0) Triglycerides Level 308 mg/dL (0-150) Glucose (Fingerstick) 129 mg/dL (70-99) 153 mg/dL (70-99) O2 Saturation 97 % (92-99) Arterial Blood pH 7.41 (7.35-7.45) Arterial Blood pCO2 at Patient Temp 40 mmHg (35-46) Arterial Blood pO2 at Patient Temp 97 mmHg (75-108) Arterial Blood HCO3 25 mmol/L (21-28) Arterial Blood Base Excess 0 mmol/L (-3-3) FiO2 40 Test 07/03/19 09:17 Glucose (Fingerstick) 186 mg/dL (70-99) Laboratory Tests Test 07/02/19 10:12 07/02/19 12:26 07/02/19 14:36 07/02/19 16:41 Glucose (Fingerstick) 143 mg/dL (70-99) 140 mg/dL (70-99) 151 mg/dL (70-99) 150 mg/dL (70-99) Test 07/02/19 18:36 07/02/19 19:41 07/02/19 20:45 07/02/19 21:48 Glucose (Fingerstick) 125 mg/dL (70-99) 138 mg/dL (70-99) 134 mg/dL (70-99) 155 mg/dL (70-99) Test 07/02/19 22:49 07/02/19 23:53 07/03/19 01:54 07/03/19 06:00 Glucose (Fingerstick) 152 mg/dL (70-99) 155 mg/dL (70-99) 136 mg/dL (70-99) White Blood Count 13.9 x10^3/uL (4.0-11.0) Red Blood Count 2.71 x10^6/uL (4.30-5.70) Hemoglobin 7.7 g/dL (13.0-17.5) Hematocrit 24.3 % (39.0-53.0) Mean Corpuscular Volume 90 fL (79-100) Mean Corpuscular Hemoglobin 28 pg (25-35) Mean Corpuscular Hemoglobin Concent 32 g/dL (31-37) Red Cell Distribution Width 15.0 % (11.5-14.5) Platelet Count 414 x10^3/uL (140-400) Neutrophils (%) (Auto) 82 % (31-73) Lymphocytes (%) (Auto) 7 % (24-48) Monocytes (%) (Auto) 10 % (0-9) Eosinophils (%) (Auto) 1 % (0-3) Basophils (%) (Auto) 0 % (0-3) Neutrophils # (Auto) 11.3 x10^3/uL (1.8-7.7) Lymphocytes # (Auto) 1.0 x10^3/uL (1.0-4.8) Monocytes # (Auto) 1.4 x10^3/uL (0.0-1.1) Eosinophils # (Auto) 0.1 x10^3/uL (0.0-0.7) Basophils # (Auto) 0.0 x10^3/uL (0.0-0.2) Sodium Level 148 mmol/L (136-145) Potassium Level 3.6 mmol/L (3.5-5.1) Chloride Level 111 mmol/L (98-107) Carbon Dioxide Level 28 mmol/L (21-32) Anion Gap 9 (6-14) Blood Urea Nitrogen 54 mg/dL (8-26) Creatinine 1.0 mg/dL (0.7-1.3) Estimated GFR (Cockcroft-Gault) 96.1 Glucose Level 142 mg/dL (70-99) Calcium Level 8.2 mg/dL (8.5-10.1) Phosphorus Level 3.9 mg/dL (2.6-4.7) Magnesium Level 2.0 mg/dL (1.8-2.4) Albumin 1.0 g/dL (3.4-5.0) Triglycerides Level 308 mg/dL (0-150) Test 07/03/19 06:07 07/03/19 07:43 07/03/19 08:30 07/03/19 09:17 Glucose (Fingerstick) 129 mg/dL (70-99) 153 mg/dL (70-99) 186 mg/dL (70-99) O2 Saturation 97 % (92-99) Arterial Blood pH 7.41 (7.35-7.45) Arterial Blood pCO2 at Patient Temp 40 mmHg (35-46) Arterial Blood pO2 at Patient Temp 97 mmHg (75-108) Arterial Blood HCO3 25 mmol/L (21-28) Arterial Blood Base Excess 0 mmol/L (-3-3) FiO2 40 Microbiology 06/30/19 Blood Culture - Preliminary, Resulted NO GROWTH AFTER 2 DAYS 06/23/19 - Final, Complete 06/23/19 - Final, Complete 06/23/19 - Final, Complete 06/23/19 Gram Stain Evaluation - Final, Complete 06/23/19 Sputum Culture - Final, Complete 06/23/19 Sputum Result 1 - Final, Complete 06/22/19 AFB Specimen Processing Tissue - Final, Resulted 06/22/19 Acid Fast Bacilli Culture, Resulted Pending 06/22/19 Gram Stain - Final, Resulted 06/22/19 Fungal Culture - Preliminary, Resulted 06/22/19 Fungal Culture Result 1 - Preliminary, Resulted Vitals/I & O Vital Sign - Last 24 Hours 07/02/19 07/02/19 07/02/19 07/02/19 10:57 12:15 12:18 12:28 Temp 100.8 100.8 Pulse 93 81 Resp 20 20 B/P (MAP) 131/69 (89) 109/66 (80) Pulse Ox 98 100 100 O2 Delivery Ventilator Ventilator Ventilator Mechanical Ventilator 07/02/19 07/02/19 07/02/19 07/02/19 13:05 13:07 14:16 14:52 Temp 100.4 100.4 Pulse 81 78 84 Resp 20 20 20 B/P (MAP) 108/68 (81) 103/62 (76) 101/62 (75) Pulse Ox 100 98 98 99 O2 Delivery Ventilator Ventilator Ventilator Ventilator 07/02/19 07/02/19 07/02/19 07/02/19 15:47 16:14 16:24 16:53 Pulse 81 80 Resp 20 20 B/P (MAP) 99/54 (69) 95/55 (68) Pulse Ox 98 99 99 O2 Delivery Ventilator Ventilator Mechanical Ventilator Ventilator 07/02/19 07/02/19 07/02/19 07/02/19 17:42 17:55 19:00 19:45 Pulse 80 78 Resp 20 20 B/P (MAP) 103/67 (79) 98/55 (69) Pulse Ox 98 100 99 O2 Delivery Ventilator Ventilator Ventilator Mechanical Ventilator 07/02/19 07/02/19 07/02/19 07/02/19 20:00 21:00 21:02 22:00 Temp 100.2 100.2 Pulse 76 79 78 Resp 20 20 20 B/P (MAP) 98/54 (69) 94/58 (70) 98/58 (71) Pulse Ox 99 99 98 99 O2 Delivery Ventilator Ventilator Ventilator Ventilator 07/02/19 07/02/19 07/02/19 07/03/19 23:00 23:42 23:50 00:00 Temp 99.8 99.8 Pulse 77 72 Resp 20 20 B/P (MAP) 89/51 (64) 101/61 (74) Pulse Ox 99 98 98 O2 Delivery Ventilator Ventilator Mechanical Ventilator Ventilator 07/03/19 07/03/19 07/03/19 07/03/19 01:00 01:34 02:00 03:00 Temp 98.8 98.8 Pulse 75 73 72 Resp 20 20 20 B/P (MAP) 96/60 (72) 88/56 (67) 91/54 (66) Pulse Ox 99 98 98 99 O2 Delivery Ventilator Ventilator Ventilator Ventilator 07/03/19 07/03/19 07/03/19 07/03/19 04:00 04:00 04:28 05:00 Pulse 73 75 Resp 20 20 B/P (MAP) 97/64 (75) 91/57 (68) Pulse Ox 100 98 100 O2 Delivery Mechanical Ventilator Ventilator Ventilator Ventilator 07/03/19 07/03/19 07/03/19 07/03/19 06:00 06:06 08:20 08:37 Pulse 71 Resp 20 B/P (MAP) 95/60 (72) Pulse Ox 100 98 100 100 O2 Delivery Ventilator Ventilator Ventilator O2 Flow Rate 3.0 Intake and Output 07/02/19 07/02/19 07/03/19 15:00 23:00 07:00 Intake Total 450 ml 1907 ml 1660 ml Output Total 2005 ml 1420 ml 1435 ml Balance -1555 ml 487 ml 225 ml Still a fair amount out abdominal/retroperitoneal drains. Problem List Problems Medical Problems: (1) Acute pancreatitis Status: Acute (2) Nausea & vomiting Status: Acute Assessment Gallstone pancreatitis, severe, now post-necrosectomy. Fair amount out drains--fistula? Associated respiratory and renal failure, stable. Plan of Care Note Continue support. Check fluid amylase. Hemodynamically unstable?: No Is patient in severe pain?: No Is NPO status required?: Yes MARIA L CRUZ MD Jul 03, 2019 10:07
[2019-07-03] MEDS ORDERED: DEXTROSE 50% 25 GM / 50ML DISP.SYRIN. IV PRN (10:30)
[2019-07-03] MEDS: DAPTOmycin (GENERIC) IVPB 520 MG in IV NORMAL SALINE 50ML 50 ML IV SCH (10:52)
[2019-07-03] MEDS: INSULIN GLARGINE SYRINGE. SQ SCH ×2 (11:10→21:50)
--- NOTE | 2019-07-03 11:13 | PDOC ---
SURGICAL PROGRESS NOTE Subjective intubated sedated no pressors Vital Signs Vital Signs Date Time Temp Pulse Resp B/P (MAP) Pulse Ox O2 Delivery O2 Flow Rate FiO2 07/03/19 08:37 100 3.0 07/03/19 08:20 Ventilator 07/03/19 06:00 71 20 95/60 (72) 07/03/19 03:00 98.8 98.8 I&O Intake and Output 07/03/19 07:00 Intake Total 4017 ml Output Total 4860 ml Balance -843 ml IV Total 4017 ml Output Urine Total 3830 ml Drainage Total 1030 ml PATIENT HAS A LEPE: Yes (good UO, Cr 1.0) Abdomen: Soft, Other (drains with serosanguineous output) Labs Laboratory Tests Test 07/01/19 11:47 07/01/19 13:00 07/01/19 13:57 07/01/19 14:59 Glucose (Fingerstick) 197 mg/dL (70-99) 156 mg/dL (70-99) 143 mg/dL (70-99) 130 mg/dL (70-99) Test 07/01/19 16:18 07/01/19 17:28 07/01/19 18:31 07/01/19 19:32 Glucose (Fingerstick) 121 mg/dL (70-99) 117 mg/dL (70-99) 116 mg/dL (70-99) 145 mg/dL (70-99) Test 07/01/19 20:36 07/01/19 21:38 07/01/19 22:39 07/01/19 23:43 Glucose (Fingerstick) 150 mg/dL (70-99) 140 mg/dL (70-99) 187 mg/dL (70-99) 158 mg/dL (70-99) Test 07/02/19 00:45 07/02/19 01:48 07/02/19 02:51 07/02/19 03:56 Glucose (Fingerstick) 154 mg/dL (70-99) 147 mg/dL (70-99) 143 mg/dL (70-99) 135 mg/dL (70-99) Test 07/02/19 05:50 07/02/19 05:54 07/02/19 08:05 07/02/19 08:14 White Blood Count 15.0 x10^3/uL (4.0-11.0) Red Blood Count 2.73 x10^6/uL (4.30-5.70) Hemoglobin 7.9 g/dL (13.0-17.5) Hematocrit 24.1 % (39.0-53.0) Mean Corpuscular Volume 88 fL (79-100) Mean Corpuscular Hemoglobin 29 pg (25-35) Mean Corpuscular Hemoglobin Concent 33 g/dL (31-37) Red Cell Distribution Width 15.0 % (11.5-14.5) Platelet Count 376 x10^3/uL (140-400) Neutrophils (%) (Auto) 84 % (31-73) Lymphocytes (%) (Auto) 5 % (24-48) Monocytes (%) (Auto) 10 % (0-9) Eosinophils (%) (Auto) 1 % (0-3) Basophils (%) (Auto) 1 % (0-3) Neutrophils # (Auto) 12.5 x10^3/uL (1.8-7.7) Lymphocytes # (Auto) 0.8 x10^3/uL (1.0-4.8) Monocytes # (Auto) 1.5 x10^3/uL (0.0-1.1) Eosinophils # (Auto) 0.1 x10^3/uL (0.0-0.7) Basophils # (Auto) 0.1 x10^3/uL (0.0-0.2) Sodium Level 148 mmol/L (136-145) Potassium Level 3.8 mmol/L (3.5-5.1) Chloride Level 111 mmol/L (98-107) Carbon Dioxide Level 29 mmol/L (21-32) Anion Gap 8 (6-14) Blood Urea Nitrogen 57 mg/dL (8-26) Creatinine 1.0 mg/dL (0.7-1.3) Estimated GFR (Cockcroft-Gault) 96.1 BUN/Creatinine Ratio 57 (6-20) Glucose Level 159 mg/dL (70-99) Lactic Acid Level 1.5 mmol/L (0.4-2.0) Calcium Level 8.1 mg/dL (8.5-10.1) Magnesium Level 2.0 mg/dL (1.8-2.4) Total Bilirubin 5.4 mg/dL (0.2-1.0) Aspartate Amino Transf (AST/SGOT) 62 U/L (15-37) Alanine Aminotransferase (ALT/SGPT) 62 U/L (16-63) Alkaline Phosphatase 232 U/L (46-116) Total Protein 5.9 g/dL (6.4-8.2) Albumin 1.0 g/dL (3.4-5.0) Albumin/Globulin Ratio 0.2 (1.0-1.7) Glucose (Fingerstick) 152 mg/dL (70-99) 154 mg/dL (70-99) O2 Saturation 97 % (92-99) Arterial Blood pH 7.42 (7.35-7.45) Arterial Blood pCO2 at Patient Temp 44 mmHg (35-46) Arterial Blood pO2 at Patient Temp 96 mmHg (75-108) Arterial Blood HCO3 28 mmol/L (21-28) Arterial Blood Base Excess 3 mmol/L (-3-3) FiO2 40 Test 07/02/19 10:12 07/02/19 12:26 07/02/19 14:36 07/02/19 16:41 Glucose (Fingerstick) 143 mg/dL (70-99) 140 mg/dL (70-99) 151 mg/dL (70-99) 150 mg/dL (70-99) Test 07/02/19 18:36 07/02/19 19:41 07/02/19 20:45 07/02/19 21:48 Glucose (Fingerstick) 125 mg/dL (70-99) 138 mg/dL (70-99) 134 mg/dL (70-99) 155 mg/dL (70-99) Test 07/02/19 22:49 07/02/19 23:53 07/03/19 01:54 07/03/19 06:00 Glucose (Fingerstick) 152 mg/dL (70-99) 155 mg/dL (70-99) 136 mg/dL (70-99) White Blood Count 13.9 x10^3/uL (4.0-11.0) Red Blood Count 2.71 x10^6/uL (4.30-5.70) Hemoglobin 7.7 g/dL (13.0-17.5) Hematocrit 24.3 % (39.0-53.0) Mean Corpuscular Volume 90 fL (79-100) Mean Corpuscular Hemoglobin 28 pg (25-35) Mean Corpuscular Hemoglobin Concent 32 g/dL (31-37) Red Cell Distribution Width 15.0 % (11.5-14.5) Platelet Count 414 x10^3/uL (140-400) Neutrophils (%) (Auto) 82 % (31-73) Lymphocytes (%) (Auto) 7 % (24-48) Monocytes (%) (Auto) 10 % (0-9) Eosinophils (%) (Auto) 1 % (0-3) Basophils (%) (Auto) 0 % (0-3) Neutrophils # (Auto) 11.3 x10^3/uL (1.8-7.7) Lymphocytes # (Auto) 1.0 x10^3/uL (1.0-4.8) Monocytes # (Auto) 1.4 x10^3/uL (0.0-1.1) Eosinophils # (Auto) 0.1 x10^3/uL (0.0-0.7) Basophils # (Auto) 0.0 x10^3/uL (0.0-0.2) Sodium Level 148 mmol/L (136-145) Potassium Level 3.6 mmol/L (3.5-5.1) Chloride Level 111 mmol/L (98-107) Carbon Dioxide Level 28 mmol/L (21-32) Anion Gap 9 (6-14) Blood Urea Nitrogen 54 mg/dL (8-26) Creatinine 1.0 mg/dL (0.7-1.3) Estimated GFR (Cockcroft-Gault) 96.1 Glucose Level 142 mg/dL (70-99) Calcium Level 8.2 mg/dL (8.5-10.1) Phosphorus Level 3.9 mg/dL (2.6-4.7) Magnesium Level 2.0 mg/dL (1.8-2.4) Albumin 1.0 g/dL (3.4-5.0) Triglycerides Level 308 mg/dL (0-150) Test 07/03/19 06:07 07/03/19 07:43 07/03/19 08:30 07/03/19 09:17 Glucose (Fingerstick) 129 mg/dL (70-99) 153 mg/dL (70-99) 186 mg/dL (70-99) O2 Saturation 97 % (92-99) Arterial Blood pH 7.41 (7.35-7.45) Arterial Blood pCO2 at Patient Temp 40 mmHg (35-46) Arterial Blood pO2 at Patient Temp 97 mmHg (75-108) Arterial Blood HCO3 25 mmol/L (21-28) Arterial Blood Base Excess 0 mmol/L (-3-3) FiO2 40 Test 07/03/19 10:55 Glucose (Fingerstick) 190 mg/dL (70-99) Laboratory Tests Test 07/02/19 12:26 07/02/19 14:36 07/02/19 16:41 07/02/19 18:36 Glucose (Fingerstick) 140 mg/dL (70-99) 151 mg/dL (70-99) 150 mg/dL (70-99) 125 mg/dL (70-99) Test 07/02/19 19:41 07/02/19 20:45 07/02/19 21:48 07/02/19 22:49 Glucose (Fingerstick) 138 mg/dL (70-99) 134 mg/dL (70-99) 155 mg/dL (70-99) 152 mg/dL (70-99) Test 07/02/19 23:53 07/03/19 01:54 07/03/19 06:00 07/03/19 06:07 Glucose (Fingerstick) 155 mg/dL (70-99) 136 mg/dL (70-99) 129 mg/dL (70-99) White Blood Count 13.9 x10^3/uL (4.0-11.0) Red Blood Count 2.71 x10^6/uL (4.30-5.70) Hemoglobin 7.7 g/dL (13.0-17.5) Hematocrit 24.3 % (39.0-53.0) Mean Corpuscular Volume 90 fL (79-100) Mean Corpuscular Hemoglobin 28 pg (25-35) Mean Corpuscular Hemoglobin Concent 32 g/dL (31-37) Red Cell Distribution Width 15.0 % (11.5-14.5) Platelet Count 414 x10^3/uL (140-400) Neutrophils (%) (Auto) 82 % (31-73) Lymphocytes (%) (Auto) 7 % (24-48) Monocytes (%) (Auto) 10 % (0-9) Eosinophils (%) (Auto) 1 % (0-3) Basophils (%) (Auto) 0 % (0-3) Neutrophils # (Auto) 11.3 x10^3/uL (1.8-7.7) Lymphocytes # (Auto) 1.0 x10^3/uL (1.0-4.8) Monocytes # (Auto) 1.4 x10^3/uL (0.0-1.1) Eosinophils # (Auto) 0.1 x10^3/uL (0.0-0.7) Basophils # (Auto) 0.0 x10^3/uL (0.0-0.2) Sodium Level 148 mmol/L (136-145) Potassium Level 3.6 mmol/L (3.5-5.1) Chloride Level 111 mmol/L (98-107) Carbon Dioxide Level 28 mmol/L (21-32) Anion Gap 9 (6-14) Blood Urea Nitrogen 54 mg/dL (8-26) Creatinine 1.0 mg/dL (0.7-1.3) Estimated GFR (Cockcroft-Gault) 96.1 Glucose Level 142 mg/dL (70-99) Calcium Level 8.2 mg/dL (8.5-10.1) Phosphorus Level 3.9 mg/dL (2.6-4.7) Magnesium Level 2.0 mg/dL (1.8-2.4) Albumin 1.0 g/dL (3.4-5.0) Triglycerides Level 308 mg/dL (0-150) Test 07/03/19 07:43 07/03/19 08:30 07/03/19 09:17 07/03/19 10:55 Glucose (Fingerstick) 153 mg/dL (70-99) 186 mg/dL (70-99) 190 mg/dL (70-99) O2 Saturation 97 % (92-99) Arterial Blood pH 7.41 (7.35-7.45) Arterial Blood pCO2 at Patient Temp 40 mmHg (35-46) Arterial Blood pO2 at Patient Temp 97 mmHg (75-108) Arterial Blood HCO3 25 mmol/L (21-28) Arterial Blood Base Excess 0 mmol/L (-3-3) FiO2 40 WBC down some good renal function Problem List Problems Medical Problems: (1) Acute pancreatitis Status: Acute (2) Nausea & vomiting Status: Acute Assessment/Plan POD 11 pancreatic necrosectomy continue supportive care trial OG off suction G tube to GI mcgraw/w WILL BURK MD Jul 03, 2019 11:12
--- NOTE | 2019-07-03 11:22 | NUR ---
SS following up with discharge planning. [facility], ; fax [phone], requesting updates for insurance authorization at 0830. SS faxed requested updates at 0835. SS will await insurance authorization and will proceed accordingly. Pt's RN notified.
--- NOTE | 2019-07-03 11:39 | PDOC ---
[employer] PROGRESS NOTE Chief Complaint Chief Complaint Acute hypoxemic respiratory failure, multifactorial. Status post tracheostomy 5 drains Acute gallstone pancreatitis./ Necrosis Acute kidney failure. improving Metabolic toxic encephalopathy. Hyperkalemia.corrected Metabolic / respiratory acidosis Hypocalcemia. Hepatitis B Hypernatremia LLL small effusion, monitor Exploratory laparotomy, pancreatic necrosectomy, cholecystostomy tube placement, Gastrostomy placement with jejunal extension, tracheostomy placement (specifically 8 shiley cuffed) Specimans Obtained: pancreatic necrosis, saponification, gallstones Findings: diffuse peritonitis, 1.5 liters of ascites, diffuse saponification, viable viscera, mulitiple gallstones, normal liver History of Present Illness History of Present Illness [id number] Patient seen and examined in the ICU again He remains on mechanical ventilation Before meals/20/500/40% Discussed with RN Chart reviewed He remains critically ill Has 5 abdominal drains plus a Lobato and an NG to suction [id number] Seen and examined in the ICU where he is on mechanical ventilation Assist-control/20/500/40% FiO2 Discussed with RN He is on IV micafungin GEN IV TPN IV insulin and IV fentanyl Extremely critically ill [id number] Patient seen and examined Discussed with staff electronic warfare officer chart [id number] Patient seen and examined He remains critically ill in the ICU on the vent Discussed with his and his daughter and the RN Chart reviewed [id number] Patient seen and examined in the ICU He remains on the vent with assist control/20/500/40% FiO2 Discussed with RN Chart reviewed He is still critically ill [id number] Patient seen and examined in the ICU He remains critically ill intubated Vent: ac/ 20 /500/ 40% Chart reviewed Discussed with RN [id number] Patient seen and examined in the ICU He remains intubated Dr. Mcbride is here with me Discussed with RN Discussed with patient's brother Chart reviewed Patient remains mechanically intubated and sedated Extremely critically ill [id number] Patient seen and examined in the ICU He remains intubated and now on multiple drips Vent settings as follows assist-control/18/500/40% Discussed with RN Discussed with Dr. Smyth Chart reviewed He is critically ill [id number] Patient seen and examined in the ICU He is on the ventilator and sedated and paralyzed Discussed with RN Discussed with his Chart reviewed Exploratory laparotomy, pancreatic necrosectomy, cholecystostomy tube placement, Gastrostomy placement with jejunal extension, tracheostomy placement (specifically 8 shiley cuffed) 06/24/2019 Pt seen and examined in the ICU. Discussed with RN, Chart reviewed. Pt was sedated and currently being tried on room air. Ventilator setting as follows: AC/18/500/40% with peep of 5, but not in use during observation. Currently has [address] Vitals/I&O Vitals/I&O: Vital Signs Date Time Temp Pulse Resp B/P (MAP) Pulse Ox O2 Delivery O2 Flow Rate FiO2 07/03/19 11:35 100 Ventilator 07/03/19 08:37 3.0 07/03/19 06:00 71 20 95/60 (72) 07/03/19 03:00 98.8 98.8 I & O 0 07/02/19 07/02/19 07/03/19 15:00 23:00 07:00 Intake Total 450 ml 1907 ml 1660 ml Output Total 2005 ml 1420 ml 1435 ml Balance -1555 ml 487 ml 225 ml Physical Exam Physical Exam: GENERAL: Sedated, trached/vent HEENT: Pupils equal, OGT, NECK: Trach/vent LUNGS: Diminished aeration bases HEART: S1, S2, regular, no murmurs. ABDOMEN: Distended, fairly tight, bowel sounds present. drains x 5, wound vac in place : Lobato + EXTREMITIES: Trace edema, no cyanosis. SCDs bilaterally SKIN: Warm, dry. 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 DIVERSITY SPECIALIST: Sedated RIJ/HD catheter (06/19) RT IJ removed RT PICC line clean General: Other ([id number]) Heart: Regular rate, Normal S1, Normal S2, No murmurs, Gallops Lungs: Crackles Abdomen: Soft, Other Extremities: No clubbing, No cyanosis, No edema, Normal pulses, No tenderness/swelling Skin: No significant lesion Labs Labs: Laboratory Tests Test 07/02/19 12:26 07/02/19 14:36 07/02/19 16:41 07/02/19 18:36 Glucose (Fingerstick) 140 mg/dL (70-99) 151 mg/dL (70-99) 150 mg/dL (70-99) 125 mg/dL (70-99) Test 07/02/19 19:41 07/02/19 20:45 07/02/19 21:48 07/02/19 22:49 Glucose (Fingerstick) 138 mg/dL (70-99) 134 mg/dL (70-99) 155 mg/dL (70-99) 152 mg/dL (70-99) Test 07/02/19 23:53 07/03/19 01:54 07/03/19 06:00 07/03/19 06:07 Glucose (Fingerstick) 155 mg/dL (70-99) 136 mg/dL (70-99) 129 mg/dL (70-99) White Blood Count 13.9 x10^3/uL (4.0-11.0) Red Blood Count 2.71 x10^6/uL (4.30-5.70) Hemoglobin 7.7 g/dL (13.0-17.5) Hematocrit 24.3 % (39.0-53.0) Mean Corpuscular Volume 90 fL (79-100) Mean Corpuscular Hemoglobin 28 pg (25-35) Mean Corpuscular Hemoglobin Concent 32 g/dL (31-37) Red Cell Distribution Width 15.0 % (11.5-14.5) Platelet Count 414 x10^3/uL (140-400) Neutrophils (%) (Auto) 82 % (31-73) Lymphocytes (%) (Auto) 7 % (24-48) Monocytes (%) (Auto) 10 % (0-9) Eosinophils (%) (Auto) 1 % (0-3) Basophils (%) (Auto) 0 % (0-3) Neutrophils # (Auto) 11.3 x10^3/uL (1.8-7.7) Lymphocytes # (Auto) 1.0 x10^3/uL (1.0-4.8) Monocytes # (Auto) 1.4 x10^3/uL (0.0-1.1) Eosinophils # (Auto) 0.1 x10^3/uL (0.0-0.7) Basophils # (Auto) 0.0 x10^3/uL (0.0-0.2) Sodium Level 148 mmol/L (136-145) Potassium Level 3.6 mmol/L (3.5-5.1) Chloride Level 111 mmol/L (98-107) Carbon Dioxide Level 28 mmol/L (21-32) Anion Gap 9 (6-14) Blood Urea Nitrogen 54 mg/dL (8-26) Creatinine 1.0 mg/dL (0.7-1.3) Estimated GFR (Cockcroft-Gault) 96.1 Glucose Level 142 mg/dL (70-99) Calcium Level 8.2 mg/dL (8.5-10.1) Phosphorus Level 3.9 mg/dL (2.6-4.7) Magnesium Level 2.0 mg/dL (1.8-2.4) Albumin 1.0 g/dL (3.4-5.0) Triglycerides Level 308 mg/dL (0-150) Test 07/03/19 07:43 07/03/19 08:30 07/03/19 09:17 07/03/19 10:55 Glucose (Fingerstick) 153 mg/dL (70-99) 186 mg/dL (70-99) 190 mg/dL (70-99) O2 Saturation 97 % (92-99) Arterial Blood pH 7.41 (7.35-7.45) Arterial Blood pCO2 at Patient Temp 40 mmHg (35-46) Arterial Blood pO2 at Patient Temp 97 mmHg (75-108) Arterial Blood HCO3 25 mmol/L (21-28) Arterial Blood Base Excess 0 mmol/L (-3-3) FiO2 40 Assessment and Plan Assessmemt and Plan Problems Medical Problems: (1) Acute pancreatitis Status: Acute (2) Nausea & vomiting Status: Acute Acute hypoxemic respiratory failure, multifactorial. Status post tracheostomy 5 drains Acute gallstone pancreatitis./ Necrosis Acute kidney failure. improving Metabolic toxic encephalopathy. Hyperkalemia.corrected Metabolic / respiratory acidosis Hypocalcemia. Hepatitis B Hypernatremia LLL small effusion, monitor Exploratory laparotomy, pancreatic necrosectomy, cholecystostomy tube placement, Gastrostomy placement with jejunal extension, tracheostomy placement (specifically 8 shiley cuffed) Plan: Continue ICU monitoring Continue to monitor intraabdominal pressures IV micafungin GEN IV insulin DVT prophylaxis Appreciate subspecialist input Vent weaning if possible IV antibiotics IV paralytics and IV sedatives Trend labs Wound care We are managing 5 drains He remains critically ill Prognosis guarded Total time 31 minutes Comment Review of Relevant I have reviewed the following items alexandra (where applicable) has been applied. Medications: Current Medications Medications (Trade) Dose Ordered Sig/Jesse Route PRN Reason Start Time Stop Time Status Last Admin Dose Admin Potassium Phosphate 10 mmol/ Magnesium Sulfate 5 meq/Calcium Gluconate 15 meq/ Multivitamins 10 ml/Chromium/ Copper/Manganese/ Seleni/Zn 0.5 ml/ Potassium Acetate 10 meq/Total Parenteral Nutrition/Amino Acids/Dextrose 1,920 ml @ 80 mls/hr TPN CONT IV 07/02/19 22:00 07/03/19 21:59 07/02/19 21:36 Daptomycin 520 mg/ Sodium Chloride 50 ml @ 100 mls/hr Q24H IV 07/03/19 10:00 07/03/19 10:52 Insulin Glargine (Lantus Syringe) 30 unit BID SQ 07/03/19 11:00 07/03/19 11:10 Hemodynamically unstable?: No Is patient in severe pain?: No Is NPO status required?: Yes JUSTIN WORKMAN III DO Jul 03, 2019 11:39
[2019-07-03] MEDS: INSULIN LISPRO 300 UNITS/3 ML VIAL. SQ SCH ×2 (12:21→18:00)
[2019-07-03] MEDS: TPN PER PHARMACY MC PRN (13:11)
--- NOTE | 2019-07-03 13:11 | NUR ---
Pharmacy TPN Dosing Note S: CHRISTOPHER NEWSOME is a 49 year old M Currently receiving Central Continuous TPN started 06/19/19 B:Pertinent PMH:PANCREATITIS Height: 5 feet, 9 inches Weight: 108.5 kg Current diet: NPO LABS: Sodium: 148 Potassium: 3.6 Chloride: 111 Calcium: 8.2 Corrected Calcium: 10.60 Magnesium: 2 CO2: 28 SCr: 1 Glucose: 142 - 190 Albumin: 1.0 AST: 62 ALT: 62 TPN FORMULA: TPN TYPE: Central Continuous AMINO ACIDS: 145 gm DEXTROSE: 200 gm POTASSIUM ACETATE: 10 mEq POTASSIUM PHOSPHATE: 10 mmol MAGNESIUM: 5 mEq CALCIUM: 15 mEq MULTIPLE VITAMIN: 10 ml TRACE ELEMENTS: 0.5 ml TPN PLAN: -Electrolytes appear WNL and stable, continue same TPN. -No labs needed for tomorrow due to electrolyte stability. R: Continue TPN @ current rate and above forumula. Will monitor electrolytes, glucose, and tolerance to TPN. JESE HAGEN [facility], 07/03/19 2830
[2019-07-03] MEDS: IV NORMAL SALINE 1000ML BAG 1,000 ML IV SCH (18:45)
[2019-07-03] MEDS ORDERED: [UNRECOGNIZED DRUG - OTHER] IV SCH ×8 (22:00)
[2019-07-03] MEDS ORDERED: TOTAL PARENTERAL NUTRITION IV SCH ×8 (22:00)
[2019-07-03] MEDS ORDERED: AMINO ACID IV SCH ×8 (22:00)
[2019-07-03] MEDS ORDERED: DEXTROSE 70% IV SCH ×8 (22:00)
[2019-07-04] VITALS (23 sets, daily range): BP systolic 86–119; BP diastolic 9–78
[2019-07-04] MEDS: ACETAMINOPHEN 650 MG SUPP.RECT. PR PRN ×2 (00:48→23:49)
[2019-07-04] MEDS: MEROPENEM 500 MG in IV NORMAL SALINE 50ML 50 ML IV SCH ×5 (00:49→23:55)
[2019-07-04] MEDS: INSULIN LISPRO 300 UNITS/3 ML VIAL. SQ SCH ×4 (00:50→18:40)
[2019-07-04] MEDS: DEXMEDETOMIDINE 400 MCG in IV NORMAL SALINE 100ML 96 ML IV PRN ×9 (01:53→23:15)
[2019-07-04] MEDS: PROPOFOL 100 ML IV PRN ×6 (03:26→23:18)
[2019-07-04] MEDS: ENOXAPARIN 40 MG/0.4 ML SYRINGE. SQ SCH (06:07)
[2019-07-04] MEDS: PANTOPRAZOLE IV PUSH 40 MG VIAL. IVP SCH ×2 (06:07→18:36)
--- NOTE | 2019-07-04 07:30 | PDOC ---
Infectious Disease Note Subjective: Subjective Sedated, on vent T max 102 .2 remains on 40% Fio2 TPN Vital Signs: Vital Signs Vital Signs Date Time Temp Pulse Resp B/P (MAP) Pulse Ox O2 Delivery O2 Flow Rate FiO2 07/04/19 06:00 80 4 99/59 (72) 98 Tracheal Collar 07/04/19 04:00 101.5 101.5 07/03/19 23:16 3.0 Physical Exam: PHYSICAL EXAM GENERAL: Sedated, trached/vent HEENT: Pupils equal, OGT, NECK: Trach/vent LUNGS: Diminished aeration bases HEART: S1, S2, regular, no murmurs. ABDOMEN: Distended, fairly tight, bowel sounds present. drains x 5, wound vac in place : [place] + EXTREMITIES: Trace edema, no cyanosis. SCDs bilaterally SKIN: Warm, dry. 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 RT IJ removed; RIJ/HD catheter removed RT PICC line clean ( 07/01) Medications: Inpatient Meds: Current Medications Medications (Trade) Dose Ordered Sig/Jesse Start Time Stop Time Status Last Admin Dose Admin Acetaminophen (Tylenol Supp) 650 mg PRN Q6HRS PRN 06/14/19 20:00 07/04/19 00:48 650 MG Albumin Human 500 ml @ As Directed STK-MED ONCE 06/22/19 13:25 06/22/19 13:25 DC Albuterol Sulfate (Ventolin Neb Soln) 2.5 mg RTQID 06/22/19 08:00 07/03/19 20:31 2.5 MG Amino Acids/ Electrolytes/ Dextrose 1,000 ml @ 80 mls/hr [id number] 06/12/19 10:15 06/18/19 13:50 DC Amino Acids/ Glycerin/ Electrolytes 1,000 ml @ 80 mls/hr [id number] 06/12/19 10:00 UNV Atropine Sulfate (ATROPINE 0.5mg SYRINGE) 0.5 mg PRN Q5MIN PRN 06/26/19 19:00 Calcium Chloride 2000 mg/Sodium Chloride 120 ml @ 240 mls/hr PRN QID PRN 06/14/19 10:15 06/15/19 09:58 DC 06/15/19 08:32 240 MLS/HR Calcium Gluconate (Calcium Gluconate) 1,000 mg 1X ONCE 06/22/19 19:45 06/22/19 20:15 DC Calcium Gluconate 1000 mg/Sodium Chloride 110 ml @ 220 mls/hr 1X ONCE 06/22/19 20:15 06/22/19 20:44 DC 06/22/19 20:36 220 MLS/HR Calcium Gluconate 5000 mg/Sodium Chloride 250 ml @ 28.782 mls/ hr CONT PRN 06/15/19 09:30 06/18/19 13:50 DC 06/18/19 06:12 28.782 MLS/HR Calcium Gluconate 71831 mg/Sodium Chloride 494 ml @ 4.051 mls/ hr CONT PRN 06/15/19 09:30 06/15/19 09:23 DC Cefoxitin Sodium (Mefoxin) 2 gm 1X PREOP ONCE 06/22/19 11:30 06/22/19 11:31 DC 06/22/19 11:37 2 GM Cellulose (Surgicel Hemostat 4x8) 1 each STK-MED ONCE 06/22/19 12:46 06/22/19 14:25 DC 06/22/19 12:46 1 EACH Chlorhexidine Gluconate (Peridex) 15 ml BID 06/14/19 21:00 07/01/19 16:34 DC 06/30/19 20:47 15 ML Daptomycin 520 mg/ Sodium Chloride 50 ml @ 100 mls/hr Q24H 07/03/19 10:00 07/03/19 10:52 100 MLS/HR Dexamethasone Sodium Phosphate (Decadron) 4 mg STK-MED ONCE 06/22/19 11:45 06/22/19 11:45 DC Dexmedetomidine HCl 400 mcg/ Sodium Chloride 100 ml @ 0 mls/hr CONT PRN 06/26/19 19:00 07/04/19 06:50 38.6 MLS/HR Dextrose (Dextrose 50%-Water Syringe) 12.5 gm PRN Q15MIN PRN 07/03/19 10:30 Enoxaparin Sodium (Lovenox 40mg Syringe) 40 mg Q24H 06/23/19 06:00 07/04/19 06:07 40 MG Etomidate (Amidate) 14 mg 1X ONCE 06/14/19 13:00 06/14/19 13:01 DC 06/14/19 12:59 14 MG Fentanyl Citrate 55 ml @ 1.98 mls/hr CONT PRN 06/24/19 11:45 07/03/19 08:37 1.98 MLS/HR Fentanyl Citrate (Fentanyl 2ml Vial) 100 mcg 1X ONCE 06/14/19 13:00 06/14/19 13:01 DC 06/14/19 12:58 100 MCG Fentanyl Citrate (Fentanyl 600 Mcg/30 ml ACCOUNTS 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) 600 mcg STK-MED ONCE 06/15/19 05:30 06/18/19 12:07 DC Furosemide (Lasix) 40 mg DAILY 06/27/19 12:00 07/03/19 08:51 40 MG Hydralazine HCl (Apresoline Inj) 10 mg PRN Q4HRS PRN 06/19/19 11:45 06/26/19 15:43 10 MG Hydromorphone HCl (Dilaudid) 1 mg PRN Q2HRS PRN 06/11/19 12:00 06/29/19 07:35 1 MG Info (CONTRAST GIVEN -- Rx MONITORING) 1 each PRN DAILY PRN 06/22/19 08:15 06/24/19 08:14 DC Info (PHARMACY MONITORING -- do not chart) 1 each PRN DAILY PRN 06/14/19 09:00 06/14/19 09:06 DC Info (Tpn Per Pharmacy) 1 each PRN DAILY PRN 06/19/19 11:15 07/03/19 13:11 1 EACH Insulin Glargine (Lantus Syringe) 30 unit BID 07/03/19 11:00 07/03/19 21:50 30 UNIT Insulin Human Lispro (HumaLOG) 0-9 UNITS Q6HRS 07/03/19 12:00 07/04/19 06:20 4 UNITS Insulin Human Regular (HumuLIN R VIAL) 10 unit 1X ONCE 06/22/19 19:45 06/22/19 19:57 DC 06/22/19 20:45 10 UNIT Insulin Human Regular 100 unit/ Sodium Chloride 101 ml @ 0 mls/hr CONT PRN 06/23/19 12:15 07/03/19 10:39 DC 07/02/19 18:55 2 MLS/HR Iohexol (Omnipaque 240 Mg/ml) 30 ml 1X ONCE 06/22/19 08:00 3/8/20 08:05 DC Iohexol (Omnipaque 300 Mg/ml) 75 ml 1X ONCE 06/22/19 08:00 06/22/19 08:01 Cancel Iohexol (Omnipaque 350 Mg/ml) 100 ml 1X ONCE 06/11/19 04:45 06/11/19 04:46 DC 06/11/19 05:01 100 ML Labetalol HCl (Normodyne Iv Push) 20 mg PRN Q2HR PRN 06/19/19 11:45 06/26/19 14:44 20 MG Lidocaine HCl (Buffered Lidocaine 1%) 6 ml 1X ONCE 06/13/19 09:30 06/13/19 09:31 DC 06/13/19 09:23 6 ML Lidocaine HCl (Lidocaine Pf 2% Vial) 5 ml STK-MED ONCE 06/14/19 12:00 06/17/19 10:37 DC Linezolid/Dextrose 300 ml @ 300 mls/hr Q12HR 06/14/19 21:00 07/03/19 09:09 DC 07/03/19 08:34 300 MLS/HR Lorazepam (Ativan Inj) 1 mg PRN Q6HRS PRN 06/11/19 18:15 06/29/19 07:48 1 MG Magnesium Sulfate 50 ml @ 25 mls/hr PRN DAILY PRN 06/14/19 10:30 Meropenem 500 mg/ Sodium Chloride 50 ml @ 100 mls/hr Q6HRS 06/18/19 07:30 07/04/19 06:08 100 MLS/HR Metoprolol Tartrate (Lopressor Vial) 5 mg 1X ONCE 06/18/19 12:15 06/18/19 12:16 DC Micafungin Sodium 100 mg/Dextrose 100 ml @ 100 mls/hr Q24H 06/20/19 09:00 07/03/19 08:35 100 MLS/HR Midazolam HCl (Versed) 5 mg 1X ONCE 06/14/19 13:00 06/14/19 13:01 DC 06/14/19 12:59 5 MG Midazolam HCl 50 mg/Sodium Chloride 50 ml @ 0 mls/hr CONT PRN 06/14/19 12:45 06/26/19 19:35 2 MLS/HR Morphine Sulfate (Morphine Sulfate) 1 mg PRN Q1HR PRN 06/22/19 15:45 Naloxone HCl (Narcan) 0.4 mg PRN Q2MIN PRN 06/22/19 15:45 Nicardipine HCl 50 mg/Sodium Chloride 250 ml @ 25 mls/hr CONT PRN 06/18/19 11:45 Norepinephrine Bitartrate 8 mg/ Dextrose 258 ml @ 20.027 mls/ hr CONT PRN 06/14/19 10:30 06/14/19 10:31 20.027 MLS/HR Nystatin (Nystop) 1 devorah PRN QID PRN 06/11/19 23:15 06/11/19 23:19 1 DEVORAH Ondansetron HCl (Zofran) 4 mg PRN Q6HRS PRN 06/22/19 15:45 Pantoprazole Sodium (PROTONIX VIAL for IV PUSH) 40 mg [id number] 06/13/19 21:00 07/04/19 06:07 40 MG Piperacillin Sod/ Tazobactam Sod (Zosyn Per Pharmacy) 1 each PRN DAILY PRN 06/12/19 13:15 06/12/19 19:16 DC Piperacillin Sod/ Tazobactam Sod 2.25 gm/Sodium Chloride 50 ml @ 100 mls/hr Q6HRS 06/12/19 13:30 06/12/19 19:15 DC 06/12/19 13:48 100 MLS/HR Potassium Chloride/Water 100 ml @ 50 mls/hr 1X ONCE 06/29/19 09:00 06/29/19 10:59 DC 06/29/19 08:57 50 MLS/HR Potassium Phosphate 10 mmol/ Magnesium Sulfate 5 meq/Calcium Gluconate 15 meq/ Multivitamins 10 ml/Chromium/ Copper/Manganese/ Seleni/Zn 0.5 ml/ Potassium Acetate 10 meq/Total Parenteral Nutrition/Amino Acids/Dextrose 1,920 ml @ 80 mls/hr TPN CONT 07/02/19 22:00 07/03/19 21:59 DC 07/02/19 21:36 80 MLS/HR Potassium Phosphate 10 mmol/ Magnesium Sulfate 5 meq/Calcium Gluconate 15 meq/ Multivitamins 10 ml/Chromium/ Copper/Manganese/ Seleni/Zn 0.5 ml/ Potassium Acetate 20 meq/Total Parenteral Nutrition/Amino Acids/Dextrose 1,920 ml @ 80 mls/hr TPN CONT 06/30/19 22:00 07/01/19 21:59 DC 06/30/19 21:38 80 MLS/HR Potassium Phosphate 10 mmol/ Magnesium Sulfate 5 meq/Calcium Gluconate 15 meq/ Multivitamins 10 ml/Chromium/ Copper/Manganese/ Seleni/Zn 0.5 ml/ Potassium Acetate 20 meq/Total Parenteral Nutrition/Amino Acids/Dextrose/ Fat Emulsion Intravenous 1,920 ml @ 80 mls/hr TPN CONT 06/29/19 22:00 06/30/19 21:59 DC 06/29/19 21:32 80 MLS/HR Potassium Phosphate 10 mmol/ Magnesium Sulfate 5 meq/Calcium Gluconate 15 meq/ Multivitamins 10 ml/Chromium/ Copper/Manganese/ Seleni/Zn 0.5 ml/ Total Parenteral Nutrition/Amino Acids/Dextrose/ Fat Emulsion Intravenous 1,920 ml @ 80 mls/hr TPN CONT 06/27/19 22:00 06/28/19 21:59 DC 06/27/19 21:38 80 MLS/HR Potassium Phosphate 13.6 mmol/Calcium Gluconate 20 meq/ Multivitamins 10 ml/Chromium/ Copper/Manganese/ Seleni/Zn 0.5 ml/ Insulin Human Regular 10 unit/ Total Parenteral Nutrition/Amino Acids/Dextrose/ Fat Emulsion Intravenous 1,920 ml @ 80 mls/hr TPN CONT 06/21/19 22:00 06/22/19 21:59 DC 06/21/19 21:31 80 MLS/HR Potassium Phosphate 13.6 mmol/Magnesium Sulfate 10 meq/ Calcium Gluconate 20 meq/ Multivitamins 10 ml/Chromium/ Copper/Manganese/ Seleni/Zn 0.5 ml/ Total Parenteral Nutrition/Amino Acids/Dextrose/ Fat Emulsion Intravenous 1,920 ml @ 80 mls/hr TPN CONT 06/19/19 22:00 06/20/19 21:59 DC 06/19/19 21:31 80 MLS/HR Potassium Phosphate 13.6 mmol/Magnesium Sulfate 5 meq/ Calcium Gluconate 20 meq/ Multivitamins 10 ml/Chromium/ Copper/Manganese/ Seleni/Zn 0.5 ml/ Total Parenteral Nutrition/Amino Acids/Dextrose/ Fat Emulsion Intravenous 1,920 ml @ 80 mls/hr TPN CONT 06/22/19 22:00 06/23/19 21:59 DC 06/22/19 22:14 80 MLS/HR Potassium Acetate 10 meq/Potassium Phosphate 10 mmol/ Magnesium Sulfate 5 meq/Calcium Gluconate 15 meq/ Multivitamins 10 ml/Chromium/ Copper/Manganese/ Seleni/Zn 0.5 ml/ Total Parenteral Nutrition/Amino Acids/Dextrose 1,920 ml @ 80 mls/hr TPN CONT 07/03/19 22:00 07/04/19 21:59 07/03/19 21:26 80 MLS/HR Prochlorperazine Edisylate (Compazine) 10 mg PRN Q8HRS PRN 06/11/19 12:00 06/12/19 14:59 10 MG Propofol 100 ml @ 6.588 mls/ hr CONT PRN 06/27/19 12:00 07/04/19 06:37 23.058 MLS/HR Ringer's Solution 1,000 ml @ 100 mls/hr Q10H 06/22/19 15:39 06/24/19 17:46 DC 06/23/19 22:06 100 MLS/HR Rocuronium [place] (Zemuron) 50 mg STK-MED ONCE 06/22/19 14:52 06/22/19 14:52 DC Sevoflurane (Ultane) 90 ml STK-MED ONCE 06/22/19 13:53 06/22/19 13:53 DC Sodium Bicarbonate 50 meq/Sodium Chloride 1,050 ml @ 150 mls/hr Q7H 06/12/19 11:00 06/13/19 14:48 DC 06/13/19 04:16 150 MLS/HR Sodium Bicarbonate (Sodium Bicarb Adult 8.4% Syr) 50 meq 1X ONCE 06/26/19 19:30 06/26/19 19:23 DC Sodium Chloride 500 ml @ 500 mls/hr 1X PRN PRN 06/26/19 19:00 Sodium Chloride (Normal Saline Flush) 3 ml QSHIFT PRN 06/22/19 15:45 Sodium Phosphate 10 mmol/Magnesium Sulfate 5 meq/ Calcium Gluconate 15 meq/ Multivitamins 10 ml/Chromium/ Copper/Manganese/ Seleni/Zn 0.5 ml/ Insulin Human Regular 10 unit/ Total Parenteral Nutrition/Amino Acids/Dextrose/ Fat Emulsion Intravenous 1,920 ml @ 80 mls/hr TPN CONT 06/23/19 22:00 06/24/19 21:59 DC 06/23/19 22:20 80 MLS/HR Sodium Phosphate 10 mmol/Magnesium Sulfate 5 meq/ Calcium Gluconate 15 meq/ Multivitamins 10 ml/Chromium/ Copper/Manganese/ Seleni/Zn 0.5 ml/ Total Parenteral Nutrition/Amino Acids/Dextrose/ Fat Emulsion Intravenous 1,920 ml @ 80 mls/hr TPN CONT 06/27/19 22:00 06/27/19 12:55 DC Succinylcholine Chloride (Anectine) 200 mg 1X ONCE 06/14/19 13:00 06/14/19 13:01 DC 06/14/19 12:59 200 MG Vecuronium [place] 50 mg/ Miscellaneous 50 ml @ 4.925 mls/ hr CONT PRN 06/22/19 15:00 06/25/19 05:19 4.925 MLS/HR Labs: Lab Laboratory Tests Test 07/03/19 07:43 07/03/19 08:30 07/03/19 09:17 07/03/19 10:55 Glucose (Fingerstick) 153 mg/dL (70-99) 186 mg/dL (70-99) 190 mg/dL (70-99) O2 Saturation 97 % (92-99) Arterial Blood pH 7.41 (7.35-7.45) Arterial Blood pCO2 at Patient Temp 40 mmHg (35-46) Arterial Blood pO2 at Patient Temp 97 mmHg (75-108) Arterial Blood HCO3 25 mmol/L (21-28) Arterial Blood Base Excess 0 mmol/L (-3-3) FiO2 40 Test 07/03/19 12:09 07/03/19 13:24 07/03/19 21:41 07/04/19 00:47 Glucose (Fingerstick) 167 mg/dL (70-99) 118 mg/dL (70-99) 127 mg/dL (70-99) 180 mg/dL (70-99) Test 07/04/19 06:16 Glucose (Fingerstick) 161 mg/dL (70-99) Objective: Assessment: . Fever cult neg so far Leukocytosis Gallbladder stone pancreatitis s/p expl lap, pancreatic necrosectomy, cholecystostomy tube placement, G-tube placement with jejunal extension, 06/21 Loculated fluid collection along the anterior aspect of the pancreas measures 3.0 x 2.6 cm and fluid collection along the inferior aspect of the stomach measures 9.6 x 4.0 cm, on CT 06/21 Sepsis from GI - cult neg Acute Resp failure - s/p trach 06/21 Lactic acidosis. Acute kidney injury previously requiring dialysis - now with improved UOP, HDC (06/13) still in place Metabolic acidosis. Hypocalcemia Plan: Plan of Care HDC/Rt IJ is out cbc pending from today Continue merrem, micafungin (06/19) cont daptomycin ( 07/02);restart Zyvox ( better lung penetration) CT C/A/P pancultures again doppler u/s of RUE Maintain aspiration precaution. Gen surgery following D/w nursing Critically ill THUY GOODMAN MD Jul 04, 2019 07:30
[2019-07-04] MEDS: ALBUTEROL SULFATE 2.5 MG/3 ML NEBU. NEB SCH ×4 (08:11→20:45)
--- NOTE | 2019-07-04 08:29 | RAD ---
AP chest. HISTORY: Patient on ventilator, follow-up AP view was taken of the chest. NG tube extends into the stomach. Tracheostomy tube is unchanged. There is a right arm PICC line which extends to the right atrium. Previous dialysis catheter has been removed. There is atelectasis or infiltrate in both lung bases more prominent on the left. Small effusions are possible. IMPRESSION: 1. Dialysis catheter was removed. 2. Little other change. Electronically signed by: Jim López MD (07/04/2019 8:26 AM) [id number]
[2019-07-04] MEDS: MICAFUNGIN 100 MG in IV DEXTROSE 5% 100ML 100 ML IV SCH (08:52)
[2019-07-04] MEDS: FUROSEMIDE 40 MG/4 ML VIAL. IVP SCH (08:53)
[2019-07-04 08:55] LABS: BASE EXCESS ABG -6 mmol/L (-3-3); HCO3 ABG 17 mmol/L (21-28); PCO2 ABG 26 mmHg (35-46); PO2 ABG 142 mmHg (75-108); SAT O2 ABG 99 % (92-99)
[2019-07-04] MEDS: DAPTOmycin (GENERIC) IVPB 520 MG in IV NORMAL SALINE 50ML 50 ML IV SCH (08:55)
[2019-07-04 08:58] LABS: FIO2 ABG 40
[2019-07-04] MEDS: INSULIN GLARGINE SYRINGE. SQ SCH ×2 (09:01→21:09)
--- NOTE | 2019-07-04 09:37 | PDOC ---
Objective: Objective: Reviewed chart. Vital Signs: Vital Signs Date Time Temp Pulse Resp B/P (MAP) Pulse Ox O2 Delivery O2 Flow Rate FiO2 07/04/19 08:11 99 Ventilator 07/04/19 06:00 80 4 99/59 (72) 07/04/19 04:00 101.5 101.5 07/03/19 23:16 3.0 Labs: Laboratory Tests Test 07/03/19 10:55 07/03/19 12:09 07/03/19 13:24 07/03/19 21:41 Glucose (Fingerstick) 190 mg/dL 167 mg/dL 118 mg/dL 127 mg/dL Test 07/04/19 00:47 07/04/19 06:16 07/04/19 08:00 07/04/19 08:59 Glucose (Fingerstick) 180 mg/dL 161 mg/dL 170 mg/dL O2 Saturation 99 % Arterial Blood pH 7.43 Arterial Blood pCO2 at Patient Temp 26 mmHg Arterial Blood pO2 at Patient Temp 142 mmHg Arterial Blood HCO3 17 mmol/L Arterial Blood Base Excess -6 mmol/L FiO2 40 Imaging: CXR 07/03 IMPRESSION: 1. Dialysis catheter was removed. 2. Little other change. PE: GEN: trach/vent, OG clamped LUNGS: clear HEART: RRR ABD: distended, tubes/drains NEURO/PSYCH: sedated A/P: S/p pancreatic necrosectomy, fever -- Continue support. Hemodynamically unstable?: No Is patient in severe pain?: No Is NPO status required?: Yes PAXTON ALEXANDER Jul 04, 2019 09:37
[2019-07-04 09:45] LABS: BASO # 0.1 x10^3/uL (0.0-0.2); BASO % 1 % (0-3); EOS % 0 % (0-3); HEMATOCRIT 23.7 % (39.0-53.0); HEMOGLOBIN 7.6 g/dL (13.0-17.5); LYMPH # 1.6 x10^3/uL (1.0-4.8); LYMPH % 11 % (24-48); MEAN CORPUSCULAR HEMOGLOBIN 29 pg (25-35); MEAN CORPUSCULAR HGB CONC 32 g/dL (31-37); MEAN CORPUSCULAR VOLUME 89 fL (79-100); MONO # 1.4 x10^3/uL (0.0-1.1); MONO % 10 % (0-9); NEUT # 10.9 x10^3/uL (1.8-7.7); NEUT % 78 % (31-73); PLATELET COUNT 428 x10^3/uL (140-400); RED BLOOD COUNT 2.66 x10^6/uL (4.30-5.70)
[2019-07-04 09:51] LABS: CALCIUM 8.2 mg/dL (8.5-10.1); CREATININE 1.1 mg/dL (0.7-1.3); GFR 86.1
[2019-07-04 09:55] LABS: BILIRUBIN,URINE MODERATE (NEG); CLARITY,URINE CLEAR; COLOR,URINE AMBER; NITRITE,URINE NEGATIVE (NEG); PROTEIN,URINE NEGATIVE (NEG-TRACE)
[2019-07-04 10:22] LABS: BACTERIA,URINE FEW /HPF (0-FEW); RBC,URINE 0 /HPF (0-2); SQUAMOUS EPITHELIAL CELL,UR OCC /LPF; WBC,URINE RARE /HPF (0-4)
[2019-07-04 10:25] LABS: POTASSIUM 3.7 mmol/L (3.5-5.1)
--- NOTE | 2019-07-04 10:46 | RAD ---
Clinical indications: Central line in jugular vein and PICC line in the brachial vein of the right arm. Right arm swelling. Findings: Duplex sonography (including waller scale evaluation and color flow and waveform spectral analysis) of the right subclavian vein as far as it could be visualized prior to it's descent underneath the medial aspect of the clavicle was performed. Duplex sonography (including waller scale evaluation and color flow and waveform spectral analysis) of the right axillary, brachial, basilic, cephalic, ulnar and radial veins was performed. The right IJ cannot be evaluated due to the dressing in association with the central line. PICC line is seen within the brachial vein and subclavian vein and these veins are patent. There is occlusive thrombosis of the cephalic vein at the level of the midhumerus. The upper aspect of the cephalic vein is compressible and patent otherwise. The other veins are compressible and patent. Impression: There is occlusive thrombosis within the cephalic vein at the level of the midhumerus. The upper aspect of the cephalic vein prior to it's anastomosis with the axillary vein is compressible and patent otherwise. No DVT there is seen elsewhere. Electronically signed by: Keny Ortiz MD (07/04/2019 10:42 AM) [facility] [place]
--- NOTE | 2019-07-04 11:01 | PDOC ---
MAXIMILIANO GREENBERG TEACHING DIETITIAN 07/04/19 1101: SURGICAL PROGRESS NOTE Subjective vent d/w nursing dialysis cath out, IJ out--fevers overnight OG minimal residual G tube to LIS-no drainage Vital Signs Vital Signs Date Time Temp Pulse Resp B/P (MAP) Pulse Ox O2 Delivery O2 Flow Rate FiO2 07/04/19 08:11 99 Ventilator 07/04/19 06:00 80 4 99/59 (72) 07/04/19 04:00 101.5 101.5 07/03/19 23:16 3.0 I&O Intake and Output 07/04/19 07:00 Intake Total 4140.8 ml Output Total 2035 ml Balance 2105.8 ml Intake Oral 0 ml IV Total 4140.8 ml Output Urine Total 1465 ml Gastric Drainage Total 50 ml Oral Regurgitation 25 ml Drainage Total 495 ml PATIENT HAS A LEPE: Yes General: No acute distress HEENT: Other (vent) Abdomen: Other (distended, drains, tubes in place) Labs Laboratory Tests Test 07/02/19 12:26 07/02/19 14:36 07/02/19 16:41 07/02/19 18:36 Glucose (Fingerstick) 140 mg/dL (70-99) 151 mg/dL (70-99) 150 mg/dL (70-99) 125 mg/dL (70-99) Test 07/02/19 19:41 07/02/19 20:45 07/02/19 21:48 07/02/19 22:49 Glucose (Fingerstick) 138 mg/dL (70-99) 134 mg/dL (70-99) 155 mg/dL (70-99) 152 mg/dL (70-99) Test 07/02/19 23:53 07/03/19 01:54 07/03/19 06:00 07/03/19 06:07 Glucose (Fingerstick) 155 mg/dL (70-99) 136 mg/dL (70-99) 129 mg/dL (70-99) White Blood Count 13.9 x10^3/uL (4.0-11.0) Red Blood Count 2.71 x10^6/uL (4.30-5.70) Hemoglobin 7.7 g/dL (13.0-17.5) Hematocrit 24.3 % (39.0-53.0) Mean Corpuscular Volume 90 fL (79-100) Mean Corpuscular Hemoglobin 28 pg (25-35) Mean Corpuscular Hemoglobin Concent 32 g/dL (31-37) Red Cell Distribution Width 15.0 % (11.5-14.5) Platelet Count 414 x10^3/uL (140-400) Neutrophils (%) (Auto) 82 % (31-73) Lymphocytes (%) (Auto) 7 % (24-48) Monocytes (%) (Auto) 10 % (0-9) Eosinophils (%) (Auto) 1 % (0-3) Basophils (%) (Auto) 0 % (0-3) Neutrophils # (Auto) 11.3 x10^3/uL (1.8-7.7) Lymphocytes # (Auto) 1.0 x10^3/uL (1.0-4.8) Monocytes # (Auto) 1.4 x10^3/uL (0.0-1.1) Eosinophils # (Auto) 0.1 x10^3/uL (0.0-0.7) Basophils # (Auto) 0.0 x10^3/uL (0.0-0.2) Sodium Level 148 mmol/L (136-145) Potassium Level 3.6 mmol/L (3.5-5.1) Chloride Level 111 mmol/L (98-107) Carbon Dioxide Level 28 mmol/L (21-32) Anion Gap 9 (6-14) Blood Urea Nitrogen 54 mg/dL (8-26) Creatinine 1.0 mg/dL (0.7-1.3) Estimated GFR (Cockcroft-Gault) 96.1 Glucose Level 142 mg/dL (70-99) Calcium Level 8.2 mg/dL (8.5-10.1) Phosphorus Level 3.9 mg/dL (2.6-4.7) Magnesium Level 2.0 mg/dL (1.8-2.4) Albumin 1.0 g/dL (3.4-5.0) Triglycerides Level 308 mg/dL (0-150) Test 07/03/19 07:43 07/03/19 08:30 07/03/19 09:17 07/03/19 10:55 Glucose (Fingerstick) 153 mg/dL (70-99) 186 mg/dL (70-99) 190 mg/dL (70-99) O2 Saturation 97 % (92-99) Arterial Blood pH 7.41 (7.35-7.45) Arterial Blood pCO2 at Patient Temp 40 mmHg (35-46) Arterial Blood pO2 at Patient Temp 97 mmHg (75-108) Arterial Blood HCO3 25 mmol/L (21-28) Arterial Blood Base Excess 0 mmol/L (-3-3) FiO2 40 Test 07/03/19 12:09 07/03/19 13:24 07/03/19 21:41 07/04/19 00:47 Glucose (Fingerstick) 167 mg/dL (70-99) 118 mg/dL (70-99) 127 mg/dL (70-99) 180 mg/dL (70-99) Test 07/04/19 06:16 07/04/19 08:00 07/04/19 08:20 07/04/19 08:59 Glucose (Fingerstick) 161 mg/dL (70-99) 170 mg/dL (70-99) O2 Saturation 99 % (92-99) Arterial Blood pH 7.43 (7.35-7.45) Arterial Blood pCO2 at Patient Temp 26 mmHg (35-46) Arterial Blood pO2 at Patient Temp 142 mmHg (75-108) Arterial Blood HCO3 17 mmol/L (21-28) Arterial Blood Base Excess -6 mmol/L (-3-3) FiO2 40 White Blood Count 14.0 x10^3/uL (4.0-11.0) Red Blood Count 2.66 x10^6/uL (4.30-5.70) Hemoglobin 7.6 g/dL (13.0-17.5) Hematocrit 23.7 % (39.0-53.0) Mean Corpuscular Volume 89 fL (79-100) Mean Corpuscular Hemoglobin 29 pg (25-35) Mean Corpuscular Hemoglobin Concent 32 g/dL (31-37) Red Cell Distribution Width 15.0 % (11.5-14.5) Platelet Count 428 x10^3/uL (140-400) Neutrophils (%) (Auto) 78 % (31-73) Lymphocytes (%) (Auto) 11 % (24-48) Monocytes (%) (Auto) 10 % (0-9) Eosinophils (%) (Auto) 0 % (0-3) Basophils (%) (Auto) 1 % (0-3) Neutrophils # (Auto) 10.9 x10^3/uL (1.8-7.7) Lymphocytes # (Auto) 1.6 x10^3/uL (1.0-4.8) Monocytes # (Auto) 1.4 x10^3/uL (0.0-1.1) Eosinophils # (Auto) 0.0 x10^3/uL (0.0-0.7) Basophils # (Auto) 0.1 x10^3/uL (0.0-0.2) Urine Collection Type Unknown Urine Color Demi Urine Clarity Clear Urine pH 6.0 (<5.0-8.0) Urine Specific [place] 1.020 (1.000-1.030) Urine Protein Negative mg/dL (NEG-TRACE) Urine Glucose (UA) Negative mg/dL (NEG) Urine Ketones (Stick) Negative mg/dL (NEG) Urine Blood Negative (NEG) Urine Nitrite Negative (NEG) Urine Bilirubin Moderate (NEG) Urine Urobilinogen Dipstick 1.0 mg/dL (0.2 mg/dL) Urine Leukocyte Esterase Negative (NEG) Urine RBC 0 /HPF (0-2) Urine WBC Rare /HPF (0-4) Urine Squamous Epithelial Cells Occ /LPF Urine Bacteria Few /HPF (0-FEW) Sodium Level 148 mmol/L (136-145) Potassium Level 3.7 mmol/L (3.5-5.1) Chloride Level 110 mmol/L (98-107) Carbon Dioxide Level 29 mmol/L (21-32) Anion Gap 9 (6-14) Blood Urea Nitrogen 50 mg/dL (8-26) Creatinine 1.1 mg/dL (0.7-1.3) Estimated GFR (Cockcroft-Gault) 86.1 Glucose Level 164 mg/dL (70-99) Calcium Level 8.2 mg/dL (8.5-10.1) Laboratory Tests Test 07/03/19 12:09 07/03/19 13:24 07/03/19 21:41 07/04/19 00:47 Glucose (Fingerstick) 167 mg/dL (70-99) 118 mg/dL (70-99) 127 mg/dL (70-99) 180 mg/dL (70-99) Test 07/04/19 06:16 07/04/19 08:00 07/04/19 08:20 07/04/19 08:59 Glucose (Fingerstick) 161 mg/dL (70-99) 170 mg/dL (70-99) O2 Saturation 99 % (92-99) Arterial Blood pH 7.43 (7.35-7.45) Arterial Blood pCO2 at Patient Temp 26 mmHg (35-46) Arterial Blood pO2 at Patient Temp 142 mmHg (75-108) Arterial Blood HCO3 17 mmol/L (21-28) Arterial Blood Base Excess -6 mmol/L (-3-3) FiO2 40 White Blood Count 14.0 x10^3/uL (4.0-11.0) Red Blood Count 2.66 x10^6/uL (4.30-5.70) Hemoglobin 7.6 g/dL (13.0-17.5) Hematocrit 23.7 % (39.0-53.0) Mean Corpuscular Volume 89 fL (79-100) Mean Corpuscular Hemoglobin 29 pg (25-35) Mean Corpuscular Hemoglobin Concent 32 g/dL (31-37) Red Cell Distribution Width 15.0 % (11.5-14.5) Platelet Count 428 x10^3/uL (140-400) Neutrophils (%) (Auto) 78 % (31-73) Lymphocytes (%) (Auto) 11 % (24-48) Monocytes (%) (Auto) 10 % (0-9) Eosinophils (%) (Auto) 0 % (0-3) Basophils (%) (Auto) 1 % (0-3) Neutrophils # (Auto) 10.9 x10^3/uL (1.8-7.7) Lymphocytes # (Auto) 1.6 x10^3/uL (1.0-4.8) Monocytes # (Auto) 1.4 x10^3/uL (0.0-1.1) Eosinophils # (Auto) 0.0 x10^3/uL (0.0-0.7) Basophils # (Auto) 0.1 x10^3/uL (0.0-0.2) Urine Collection Type Unknown Urine Color Demi Urine Clarity Clear Urine pH 6.0 (<5.0-8.0) Urine Specific [place] 1.020 (1.000-1.030) Urine Protein Negative mg/dL (NEG-TRACE) Urine Glucose (UA) Negative mg/dL (NEG) Urine Ketones (Stick) Negative mg/dL (NEG) Urine Blood Negative (NEG) Urine Nitrite Negative (NEG) Urine Bilirubin Moderate (NEG) Urine Urobilinogen Dipstick 1.0 mg/dL (0.2 mg/dL) Urine Leukocyte Esterase Negative (NEG) Urine RBC 0 /HPF (0-2) Urine WBC Rare /HPF (0-4) Urine Squamous Epithelial Cells Occ /LPF Urine Bacteria Few /HPF (0-FEW) Sodium Level 148 mmol/L (136-145) Potassium Level 3.7 mmol/L (3.5-5.1) Chloride Level 110 mmol/L (98-107) Carbon Dioxide Level 29 mmol/L (21-32) Anion Gap 9 (6-14) Blood Urea Nitrogen 50 mg/dL (8-26) Creatinine 1.1 mg/dL (0.7-1.3) Estimated GFR (Cockcroft-Gault) 86.1 Glucose Level 164 mg/dL (70-99) Calcium Level 8.2 mg/dL (8.5-10.1) Problem List Problems Medical Problems: (1) Acute pancreatitis Status: Acute (2) Nausea & vomiting Status: Acute Assessment/Plan supportive care will review with WILL Hernandez MD 07/04/19 1325: SURGICAL PROGRESS NOTE Assessment/Plan pt seen and examined d/w RN will review CT with radiologist re: G tube location continue supportive care MAXIMILIANO GREENBERG APRN Jul 04, 2019 11:01 WILL BEJARANO MD Jul 04, 2019 13:25
[2019-07-04] MEDS: TPN PER PHARMACY MC PRN (11:32)
--- NOTE | 2019-07-04 11:32 | NUR ---
Pharmacy TPN Dosing Note S: CHRISTOPHER NEWSOME is a 49 year old M Currently receiving Central Continuous TPN started 06/19/19 B:Pertinent PMH: PANCREATITIS Height: 5 feet, 9 inches Weight: 104.7 kg Current diet: NPO LABS: Sodium: 148 Potassium: 3.7 Chloride: 110 Calcium: 8.2 Corrected Calcium: 10.60 Magnesium: 2 CO2: 29 SCr: 1.1 Glucose: 164 Albumin: 1.0 AST: 62 ALT: 62 TPN FORMULA: TPN TYPE: Central Continuous AMINO ACIDS: 145 gm DEXTROSE: 200 gm LIPIDS: - gm SODIUM CHLORIDE: mEq SODIUM ACETATE: mEq SODIUM PHOSPHATE: - mmol POTASSIUM CHLORIDE: mEq POTASSIUM ACETATE: 10 mEq POTASSIUM PHOSPHATE: 10 mmol MAGNESIUM: 5 mEq CALCIUM: 15 mEq INSULIN: - units MULTIPLE VITAMIN: 10 ml TRACE ELEMENTS: 0.5 ml(s) TPN PLAN: Na remains elevated, no sodium in TPN Other electrolytes apear WNL and stable, continue same TPN. No labs needed for tomorrow due to electrolyte stabilty. R: Continue TPN as written above. Will monitor electrolytes, glucose, and tolerance to TPN. ANETTE LARIOS [facility], 07/04/19 1131
--- NOTE | 2019-07-04 11:44 | NUR ---
SS following up with discharge planning. Currently awaiting for surgery to sign off. Discharge orders received for [facility], ; fax [phone]. Discharge orders phoned and faxed to [facility]. SS will continue to follow for discharge planning.
--- NOTE | 2019-07-04 12:25 | PDOC ---
[employer] PROGRESS NOTE Chief Complaint Chief Complaint Severe pancreatitis with following surgery: Exploratory laparotomy, pancreatic necrosectomy, cholecystostomy tube placement, Gastrostomy placement with jejunal extension, tracheostomy placement (specifically 8 shiley cuffed) Acute hypoxemic respiratory failure, multifactorial. Status post tracheostomy 5 drains Acute gallstone pancreatitis./ Necrosis Acute kidney failure. improving Metabolic toxic encephalopathy. Hyperkalemia.corrected Metabolic / respiratory acidosis Hypocalcemia. Hepatitis B Hypernatremia LLL small effusion, monitor Specimans Obtained: pancreatic necrosis, saponification, gallstones Findings: diffuse peritonitis, 1.5 liters of ascites, diffuse saponification, viable viscera, mulitiple gallstones, normal liver History of Present Illness History of Present Illness [id number] Patient seen and examined in the ICU He remains intubated Assist-control/20/500/40% with 5 of PEEP He is going for a CAT scan right now Discussed with case management and his RN Chart reviewed His dialysis catheter and central line were removed now [id number] Patient seen and examined in the ICU again He remains on mechanical ventilation Before meals/20/500/40% Discussed with RN Chart reviewed He remains critically ill Has 5 abdominal drains plus a Lobato and an NG to suction [id number] Seen and examined in the ICU where he is on mechanical ventilation Assist-control/20/500/40% FiO2 Discussed with RN He is on IV micafungin GEN IV TPN IV insulin and IV fentanyl Extremely critically ill [id number] Patient seen and examined Discussed with bindery operator chart [id number] Patient seen and examined He remains critically ill in the ICU on the vent Discussed with his and his daughter and the RN Chart reviewed [id number] Patient seen and examined in the ICU He remains on the vent with assist control/20/500/40% FiO2 Discussed with RN Chart reviewed He is still critically ill [id number] Patient seen and examined in the ICU He remains critically ill intubated Vent: ac/ 20 /500/ 40% Chart reviewed Discussed with RN [id number] Patient seen and examined in the ICU He remains intubated Dr. Mcbride is here with me Discussed with RN Discussed with patient's brother Chart reviewed Patient remains mechanically intubated and sedated Extremely critically ill [id number] Patient seen and examined in the ICU He remains intubated and now on multiple drips Vent settings as follows assist-control/18/500/40% Discussed with RN Discussed with Dr. Smyth Chart reviewed He is critically ill [id number] Patient seen and examined in the ICU He is on the ventilator and sedated and paralyzed Discussed with RN Discussed with his Chart reviewed Exploratory laparotomy, pancreatic necrosectomy, cholecystostomy tube placement, Gastrostomy placement with jejunal extension, tracheostomy placement (specifically 8 shiley cuffed) 06/24/2019 Pt seen and examined in the ICU. Discussed with RN, Chart reviewed. Pt was sedated and currently being tried on room air. Ventilator setting as follows: AC/18/500/40% with peep of 5, but not in use during observation. Currently has [address] Vitals/I&O Vitals/I&O: Vital Signs Date Time Temp Pulse Resp B/P (MAP) Pulse Ox O2 Delivery O2 Flow Rate FiO2 07/04/19 08:11 99 Ventilator 07/04/19 06:00 80 4 99/59 (72) 07/04/19 04:00 101.5 101.5 07/03/19 23:16 3.0 I & O 07/03/19 07/03/19 07/04/19 15:00 23:00 07:00 Intake Total 800 ml 2449.8 ml 891 ml Output Total 125 ml 745 ml 1165 ml Balance 675 ml 1704.8 ml -274 ml Physical Exam Physical Exam: GENERAL: Sedated, trached/vent HEENT: Pupils equal, OGT, NECK: Trach/vent LUNGS: Diminished aeration bases HEART: S1, S2, regular, no murmurs. ABDOMEN: Distended, fairly tight, bowel sounds present. drains x 5, wound vac in place : Lobato + EXTREMITIES: Trace edema, no cyanosis. SCDs bilaterally SKIN: Warm, dry. 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 RT IJ removed; RIJ/HD catheter removed RT PICC line clean ( 07/01) General: No acute distress Heart: Regular rate, Normal S1, Normal S2, No murmurs, Gallops Lungs: Crackles Abdomen: Other (distended, drains, tubes in place) Extremities: No clubbing, No cyanosis, No edema, Normal pulses, No tenderness/swelling Skin: No significant lesion Labs Labs: Laboratory Tests Test 07/03/19 13:24 07/03/19 21:41 07/04/19 00:47 07/04/19 06:16 Glucose (Fingerstick) 118 mg/dL (70-99) 127 mg/dL (70-99) 180 mg/dL (70-99) 161 mg/dL (70-99) Test 07/04/19 08:00 07/04/19 08:20 07/04/19 08:59 O2 Saturation 99 % (92-99) Arterial Blood pH 7.43 (7.35-7.45) Arterial Blood pCO2 at Patient Temp 26 mmHg (35-46) Arterial Blood pO2 at Patient Temp 142 mmHg (75-108) Arterial Blood HCO3 17 mmol/L (21-28) Arterial Blood Base Excess -6 mmol/L (-3-3) FiO2 40 White Blood Count 14.0 x10^3/uL (4.0-11.0) Red Blood Count 2.66 x10^6/uL (4.30-5.70) Hemoglobin 7.6 g/dL (13.0-17.5) Hematocrit 23.7 % (39.0-53.0) Mean Corpuscular Volume 89 fL (79-100) Mean Corpuscular Hemoglobin 29 pg (25-35) Mean Corpuscular Hemoglobin Concent 32 g/dL (31-37) Red Cell Distribution Width 15.0 % (11.5-14.5) Platelet Count 428 x10^3/uL (140-400) Neutrophils (%) (Auto) 78 % (31-73) Lymphocytes (%) (Auto) 11 % (24-48) Monocytes (%) (Auto) 10 % (0-9) Eosinophils (%) (Auto) 0 % (0-3) Basophils (%) (Auto) 1 % (0-3) Neutrophils # (Auto) 10.9 x10^3/uL (1.8-7.7) Lymphocytes # (Auto) 1.6 x10^3/uL (1.0-4.8) Monocytes # (Auto) 1.4 x10^3/uL (0.0-1.1) Eosinophils # (Auto) 0.0 x10^3/uL (0.0-0.7) Basophils # (Auto) 0.1 x10^3/uL (0.0-0.2) Urine Collection Type Unknown Urine Color Demi Urine Clarity Clear Urine pH 6.0 (<5.0-8.0) Urine Specific [place] 1.020 (1.000-1.030) Urine Protein Negative mg/dL (NEG-TRACE) Urine Glucose (UA) Negative mg/dL (NEG) Urine Ketones (Stick) Negative mg/dL (NEG) Urine Blood Negative (NEG) Urine Nitrite Negative (NEG) Urine Bilirubin Moderate (NEG) Urine Urobilinogen Dipstick 1.0 mg/dL (0.2 mg/dL) Urine Leukocyte Esterase Negative (NEG) Urine RBC 0 /HPF (0-2) Urine WBC Rare /HPF (0-4) Urine Squamous Epithelial Cells Occ /LPF Urine Bacteria Few /HPF (0-FEW) Sodium Level 148 mmol/L (136-145) Potassium Level 3.7 mmol/L (3.5-5.1) Chloride Level 110 mmol/L (98-107) Carbon Dioxide Level 29 mmol/L (21-32) Anion Gap 9 (6-14) Blood Urea Nitrogen 50 mg/dL (8-26) Creatinine 1.1 mg/dL (0.7-1.3) Estimated GFR (Cockcroft-Gault) 86.1 Glucose Level 164 mg/dL (70-99) Calcium Level 8.2 mg/dL (8.5-10.1) Glucose (Fingerstick) 170 mg/dL (70-99) Review of Systems Review of Systems: Unable to obtain Assessment and Plan Assessmemt and Plan Problems Medical Problems: (1) Acute pancreatitis Status: Acute (2) Nausea & vomiting Status: Acute Severe pancreatitis with the following surgery: Exploratory laparotomy, pancreatic necrosectomy, cholecystostomy tube placement, Gastrostomy placement with jejunal extension, tracheostomy placement (specifically 8 shiley cuffed) Acute hypoxemic respiratory failure, multifactorial. Status post tracheostomy 5 drains Acute gallstone pancreatitis./ Necrosis Acute kidney failure. improving Metabolic toxic encephalopathy. Hyperkalemia.corrected Metabolic / respiratory acidosis Hypocalcemia. Hepatitis B Hypernatremia LLL small effusion, monitor Plan: Continue ICU monitoring Continue to monitor intraabdominal pressures IV micafungin GEN IV insulin DVT prophylaxis Appreciate subspecialist input Vent weaning if possible IV antibiotics IV paralytics and IV sedatives Trend labs Wound care We are managing 5 abdominal drains He remains critically ill Prognosis extremely guarded Total time 33 minutes Comment Review of Relevant I have reviewed the following items alexandra (where applicable) has been applied. Medications: Current Medications Medications (Trade) Dose Ordered Sig/Jesse Route PRN Reason Start Time Stop Time Status Last Admin Dose Admin Potassium Acetate 10 meq/Potassium Phosphate 10 mmol/ Magnesium Sulfate 5 meq/Calcium Gluconate 15 meq/ Multivitamins 10 ml/Chromium/ Copper/Manganese/ Seleni/Zn 0.5 ml/ Total Parenteral Nutrition/Amino Acids/Dextrose 1,920 ml @ 80 mls/hr TPN CONT IV 07/03/19 22:00 07/04/19 21:59 07/03/19 21:26 Linezolid/Dextrose 300 ml @ 300 mls/hr Q12HR IV 07/04/19 09:00 07/04/19 08:52 Hemodynamically unstable?: No Is patient in severe pain?: No Is NPO status required?: Yes JUSTIN WORKMAN III DO Jul 04, 2019 12:25
--- NOTE | 2019-07-04 12:43 | RAD ---
STUDY: CT chest, abdomen and pelvis without contrast INDICATION: Fever. Pancreatitis. COMPARISON: CT abdomen/pelvis 06/22/2019 TECHNIQUE: Helical CT imaging of the chest, abdomen and pelvis performed without the use of intravenous contrast. Coronal and sagittal reformats were obtained. One or more of the following individualized dose reduction techniques were utilized for this examination: 1. Automated exposure control 2. Adjustment of the mA and/or kV according to patient size 3. Use of iterative reconstruction technique. FINDINGS: CHEST: Endotracheal tube tip approximately 4.4 cm from the kang. Right-sided PICC with the tip at the superior cavoatrial junction. Enteric tube tip and sidehole are within the stomach. Redemonstrated soft tissue density with areas of intermixed fat within the epicardial fat anterior to the right ventricular apex. The heart appears prominent in size. Suspected mildly prominent right hilar lymph node on image 20 series 2 measuring 1.3 cm short axis. Redemonstrated partial collapse of the left more so than right lower lobes. Redemonstrated moderate left-sided pleural effusion with overlying passive atelectasis. Limited assessment for any pleural fluid on the right. No consolidation is identified throughout the adequately aerated lungs typical of an organizing pneumonia. No focal lower neck or chest wall abnormality is appreciated noting that the study is degraded by streak artifact relating to the patient's arms at their side. No acute osseous abnormality. Abdomen/pelvis: Limited assessment for a drainable fluid collection without intravenous contrast. The solid organs are not well evaluated as well. Redemonstrated sequela of necrotic pancreatitis with diffuse mesenteric edema, reactive inflammatory changes of abdominopelvic organs and free fluid. Persistent edematous enlargement of the pancreas but less pronounced from the comparison. More pronounced hypoattenuation at the uncinate process on image 44 series 4 is similar to the prior. Hypoattenuation along the mid pancreatic body such as on 38 series 4 is slightly more conspicuous. The volume of free fluid has decreased such as best appreciated along the liver. Two upper abdominal drains have been placed both terminating along the anterior margin of the pancreatic body. An additional drainage catheter enters the right lower quadrant and terminates along the lateral margin of the ascending colon. No fluid collection is seen at the tip of this tube. A fluid collection along the undersurface of the stomach has decreased in size. On coronal image 24 series 8, a portion of the fluid collection measures 4.1 cm transverse by 1.8 cm craniocaudal while previously 6.7 cm transverse by 4.1 cm craniocaudal. Somewhat loculated fluid collection at the mid abdomen anterior to the IVC and aorta, image 55 series 4, measures approximately 8.4 cm transverse by 3 cm AP and is similar in size to the comparison. Some additional areas of fluid appear partially organized but assessment is limited without contrast. No definite air and fluid containing collection to suggest an abscess is identified. No newly seen focal hepatic parenchymal abnormality. A cholecystostomy tube is been placed in the interim. Gallstones are again noted to be present. The gallbladder wall appears less edematous from the prior. The common bile duct is not well delineated. No newly seen abnormality of the spleen noting extensive streak artifact at this location. Unchanged adrenal glands. Similar extent of left more so than right perinephric edema/fluid. No newly seen collecting system dilatation noting that the ureters are not well evaluated throughout the majority of their course. Air within the urinary bladder with a Lobato catheter in place. The balloon appears to be within the bladder lumen but is difficult to delineate. Unchanged prostate. Mild gaseous more so than stool distention of portions of the colon. Edematous wall thickening of the sigmoid and descending aspect is favored reactive. Previously there was wall thickening throughout the transverse and descending colon which is less apparent today. The appendix is not well seen. Diffuse edematous small bowel wall thickening appearing improved at some locations and worsened at others. The most notable wall thickening involves the descending and proximal transverse portions of the duodenum. No findings of obstruction. A gastrostomy tube is present but the tip of the tube is outside of the stomach. There is a fluid and air containing tract from the stomach towards the tip of the gastrostomy tube as seen on images 35 and 36 series 9. Multifocal body wall edema. Unchanged small fat-containing umbilical hernia with a similar degree of surrounding edema-like attenuation. Ventral midline surgical changes. Unchanged osseous structures with scattered chronic findings IMPRESSION: 1. Redemonstrated sequela of necrotic pancreatitis. As before there is extensive mesenteric edema but the volume of free abdominopelvic fluid has decreased. Edematous enlargement of the pancreas has slightly decreased. A fluid collection along the undersurface of the stomach has decreased in size, as detailed above. A loculated appearing fluid collection within the mid abdomen anterior to the IVC and aorta (image 55 series 4) measures similar to the prior. Ill-defined area of hypoattenuation involving the mid pancreatic body is slightly more conspicuous from the prior (image 37 series 4). It is uncertain if this represents evolving parenchymal necrosis or a developing fluid collection as assessment is limited without intravenous contrast. No air and fluid containing collection seen to suggest an abscess but note is made that the sterility of the aforementioned fluid collections is indeterminate by the imaging appearance alone. 2. Extensive reactive inflammatory changes of the abdominopelvic organs. No findings of bowel obstruction. 3. A gastrostomy tube has been placed in the interim. The tube tip is not within the stomach and is seen at the distal end of the surgical tract just deep to the ventral body wall musculature - sagittal images 35 and 36 series 9. 4. Three abdominal drains. No discrete fluid collection surrounding the tips of these drains. Cholecystostomy tube, ET tube, enteric tube, Lobato and right PICC are appropriately positioned. 5. Partial collapse of the left more so than right lower lobes. Moderate-sized left pleural effusion with overlying atelectasis. No infiltrate typical of an organizing pneumonia identified. Electronically signed by: JOHN CASAS MD (07/04/2019 12:40 PM) [id number]
[2019-07-04] MEDS ORDERED: IOHEXOL 240 MG/ML 50ML VIAL. ONE (14:23)
[2019-07-04] MEDS ORDERED: LIDOCAINE WITH 8.4% SOD BICARB 3 ML DISP.SYRIN. ONE (14:23)
[2019-07-04] MEDS ORDERED: IOHEXOL 240 MG/ML 50ML VIAL. IJ ONE (14:30)
[2019-07-04] MEDS ORDERED: CONTRAST GIVEN. MC PRN (14:30)
[2019-07-04] MEDS ORDERED: LIDOCAINE WITH 8.4% SOD BICARB 3 ML DISP.SYRIN. INJ ONE (14:30)
[2019-07-04] MEDS: fentaNYL HIGH DOSE PCA 55 ML IV PRN (14:39)
--- NOTE | 2019-07-04 16:59 | PDOC ---
PULMONARY PROGRESS NOTES Subjective SEDATED ON AC MODE Vitals Vital Signs Date Time Temp Pulse Resp B/P (MAP) Pulse Ox O2 Delivery O2 Flow Rate FiO2 07/04/19 15:58 100 Ventilator 07/04/19 15:36 91 26 119/78 (92) 07/04/19 14:39 3.0 07/04/19 04:00 101.5 101.5 HEENT: Other (nc at perrl nose clear, neck, trach site ok, no lad, no thyromegaly) Lungs: Crackles Cardiovascular: S1, S2 Abdomen: Other (/distended/firm ) Extremities: No Edema Skin: Warm Labs Laboratory Tests Test 07/02/19 18:36 07/02/19 19:41 07/02/19 20:45 07/02/19 21:48 Glucose (Fingerstick) 125 mg/dL (70-99) 138 mg/dL (70-99) 134 mg/dL (70-99) 155 mg/dL (70-99) Test 07/02/19 22:49 07/02/19 23:53 07/03/19 01:54 07/03/19 06:00 Glucose (Fingerstick) 152 mg/dL (70-99) 155 mg/dL (70-99) 136 mg/dL (70-99) White Blood Count 13.9 x10^3/uL (4.0-11.0) Red Blood Count 2.71 x10^6/uL (4.30-5.70) Hemoglobin 7.7 g/dL (13.0-17.5) Hematocrit 24.3 % (39.0-53.0) Mean Corpuscular Volume 90 fL (79-100) Mean Corpuscular Hemoglobin 28 pg (25-35) Mean Corpuscular Hemoglobin Concent 32 g/dL (31-37) Red Cell Distribution Width 15.0 % (11.5-14.5) Platelet Count 414 x10^3/uL (140-400) Neutrophils (%) (Auto) 82 % (31-73) Lymphocytes (%) (Auto) 7 % (24-48) Monocytes (%) (Auto) 10 % (0-9) Eosinophils (%) (Auto) 1 % (0-3) Basophils (%) (Auto) 0 % (0-3) Neutrophils # (Auto) 11.3 x10^3/uL (1.8-7.7) Lymphocytes # (Auto) 1.0 x10^3/uL (1.0-4.8) Monocytes # (Auto) 1.4 x10^3/uL (0.0-1.1) Eosinophils # (Auto) 0.1 x10^3/uL (0.0-0.7) Basophils # (Auto) 0.0 x10^3/uL (0.0-0.2) Sodium Level 148 mmol/L (136-145) Potassium Level 3.6 mmol/L (3.5-5.1) Chloride Level 111 mmol/L (98-107) Carbon Dioxide Level 28 mmol/L (21-32) Anion Gap 9 (6-14) Blood Urea Nitrogen 54 mg/dL (8-26) Creatinine 1.0 mg/dL (0.7-1.3) Estimated GFR (Cockcroft-Gault) 96.1 Glucose Level 142 mg/dL (70-99) Calcium Level 8.2 mg/dL (8.5-10.1) Phosphorus Level 3.9 mg/dL (2.6-4.7) Magnesium Level 2.0 mg/dL (1.8-2.4) Albumin 1.0 g/dL (3.4-5.0) Triglycerides Level 308 mg/dL (0-150) Test 07/03/19 06:07 07/03/19 07:43 07/03/19 08:30 07/03/19 09:17 Glucose (Fingerstick) 129 mg/dL (70-99) 153 mg/dL (70-99) 186 mg/dL (70-99) O2 Saturation 97 % (92-99) Arterial Blood pH 7.41 (7.35-7.45) Arterial Blood pCO2 at Patient Temp 40 mmHg (35-46) Arterial Blood pO2 at Patient Temp 97 mmHg (75-108) Arterial Blood HCO3 25 mmol/L (21-28) Arterial Blood Base Excess 0 mmol/L (-3-3) FiO2 40 Test 07/03/19 10:55 07/03/19 12:09 07/03/19 13:24 07/03/19 21:41 Glucose (Fingerstick) 190 mg/dL (70-99) 167 mg/dL (70-99) 118 mg/dL (70-99) 127 mg/dL (70-99) Test 07/04/19 00:47 07/04/19 06:16 07/04/19 08:00 07/04/19 08:20 Glucose (Fingerstick) 180 mg/dL (70-99) 161 mg/dL (70-99) O2 Saturation 99 % (92-99) Arterial Blood pH 7.43 (7.35-7.45) Arterial Blood pCO2 at Patient Temp 26 mmHg (35-46) Arterial Blood pO2 at Patient Temp 142 mmHg (75-108) Arterial Blood HCO3 17 mmol/L (21-28) Arterial Blood Base Excess -6 mmol/L (-3-3) FiO2 40 White Blood Count 14.0 x10^3/uL (4.0-11.0) Red Blood Count 2.66 x10^6/uL (4.30-5.70) Hemoglobin 7.6 g/dL (13.0-17.5) Hematocrit 23.7 % (39.0-53.0) Mean Corpuscular Volume 89 fL (79-100) Mean Corpuscular Hemoglobin 29 pg (25-35) Mean Corpuscular Hemoglobin Concent 32 g/dL (31-37) Red Cell Distribution Width 15.0 % (11.5-14.5) Platelet Count 428 x10^3/uL (140-400) Neutrophils (%) (Auto) 78 % (31-73) Lymphocytes (%) (Auto) 11 % (24-48) Monocytes (%) (Auto) 10 % (0-9) Eosinophils (%) (Auto) 0 % (0-3) Basophils (%) (Auto) 1 % (0-3) Neutrophils # (Auto) 10.9 x10^3/uL (1.8-7.7) Lymphocytes # (Auto) 1.6 x10^3/uL (1.0-4.8) Monocytes # (Auto) 1.4 x10^3/uL (0.0-1.1) Eosinophils # (Auto) 0.0 x10^3/uL (0.0-0.7) Basophils # (Auto) 0.1 x10^3/uL (0.0-0.2) Urine Collection Type Unknown Urine Color Demi Urine Clarity Clear Urine pH 6.0 (<5.0-8.0) Urine Specific [place] 1.020 (1.000-1.030) Urine Protein Negative mg/dL (NEG-TRACE) Urine Glucose (UA) Negative mg/dL (NEG) Urine Ketones (Stick) Negative mg/dL (NEG) Urine Blood Negative (NEG) Urine Nitrite Negative (NEG) Urine Bilirubin Moderate (NEG) Urine Urobilinogen Dipstick 1.0 mg/dL (0.2 mg/dL) Urine Leukocyte Esterase Negative (NEG) Urine RBC 0 /HPF (0-2) Urine WBC Rare /HPF (0-4) Urine Squamous Epithelial Cells Occ /LPF Urine Bacteria Few /HPF (0-FEW) Sodium Level 148 mmol/L (136-145) Potassium Level 3.7 mmol/L (3.5-5.1) Chloride Level 110 mmol/L (98-107) Carbon Dioxide Level 29 mmol/L (21-32) Anion Gap 9 (6-14) Blood Urea Nitrogen 50 mg/dL (8-26) Creatinine 1.1 mg/dL (0.7-1.3) Estimated GFR (Cockcroft-Gault) 86.1 Glucose Level 164 mg/dL (70-99) Calcium Level 8.2 mg/dL (8.5-10.1) Test 07/04/19 08:59 07/04/19 14:03 Glucose (Fingerstick) 170 mg/dL (70-99) 228 mg/dL (70-99) Laboratory Tests Test 07/03/19 21:41 07/04/19 00:47 07/04/19 06:16 07/04/19 08:00 Glucose (Fingerstick) 127 mg/dL (70-99) 180 mg/dL (70-99) 161 mg/dL (70-99) O2 Saturation 99 % (92-99) Arterial Blood pH 7.43 (7.35-7.45) Arterial Blood pCO2 at Patient Temp 26 mmHg (35-46) Arterial Blood pO2 at Patient Temp 142 mmHg (75-108) Arterial Blood HCO3 17 mmol/L (21-28) Arterial Blood Base Excess -6 mmol/L (-3-3) FiO2 40 Test 07/04/19 08:20 07/04/19 08:59 07/04/19 14:03 White Blood Count 14.0 x10^3/uL (4.0-11.0) Red Blood Count 2.66 x10^6/uL (4.30-5.70) Hemoglobin 7.6 g/dL (13.0-17.5) Hematocrit 23.7 % (39.0-53.0) Mean Corpuscular Volume 89 fL (79-100) Mean Corpuscular Hemoglobin 29 pg (25-35) Mean Corpuscular Hemoglobin Concent 32 g/dL (31-37) Red Cell Distribution Width 15.0 % (11.5-14.5) Platelet Count 428 x10^3/uL (140-400) Neutrophils (%) (Auto) 78 % (31-73) Lymphocytes (%) (Auto) 11 % (24-48) Monocytes (%) (Auto) 10 % (0-9) Eosinophils (%) (Auto) 0 % (0-3) Basophils (%) (Auto) 1 % (0-3) Neutrophils # (Auto) 10.9 x10^3/uL (1.8-7.7) Lymphocytes # (Auto) 1.6 x10^3/uL (1.0-4.8) Monocytes # (Auto) 1.4 x10^3/uL (0.0-1.1) Eosinophils # (Auto) 0.0 x10^3/uL (0.0-0.7) Basophils # (Auto) 0.1 x10^3/uL (0.0-0.2) Urine Collection Type Unknown Urine Color Demi Urine Clarity Clear Urine pH 6.0 (<5.0-8.0) Urine Specific [place] 1.020 (1.000-1.030) Urine Protein Negative mg/dL (NEG-TRACE) Urine Glucose (UA) Negative mg/dL (NEG) Urine Ketones (Stick) Negative mg/dL (NEG) Urine Blood Negative (NEG) Urine Nitrite Negative (NEG) Urine Bilirubin Moderate (NEG) Urine Urobilinogen Dipstick 1.0 mg/dL (0.2 mg/dL) Urine Leukocyte Esterase Negative (NEG) Urine RBC 0 /HPF (0-2) Urine WBC Rare /HPF (0-4) Urine Squamous Epithelial Cells Occ /LPF Urine Bacteria Few /HPF (0-FEW) Sodium Level 148 mmol/L (136-145) Potassium Level 3.7 mmol/L (3.5-5.1) Chloride Level 110 mmol/L (98-107) Carbon Dioxide Level 29 mmol/L (21-32) Anion Gap 9 (6-14) Blood Urea Nitrogen 50 mg/dL (8-26) Creatinine 1.1 mg/dL (0.7-1.3) Estimated GFR (Cockcroft-Gault) 86.1 Glucose Level 164 mg/dL (70-99) Calcium Level 8.2 mg/dL (8.5-10.1) Glucose (Fingerstick) 170 mg/dL (70-99) 228 mg/dL (70-99) Medications Active Scripts Medications Dose Route/Sig Max Daily Dose Days Date Category Comments CXR NO CHANGE Impression . IMPRESSION: 1. Acute hypoxemic respiratory failure, multifactorial. 2. Acute gallstone pancreatitis./ Necrosis. s/p Exploratory laparotomy, pancrea tic necrosectomy, cholecystostomy tube placement, Gastrostomy placement with jejunal extension, tracheostomy placement (specifically 8 shiley cuffed) 3/8 3. Acute kidney failure. improving 4. Metabolic toxic encephalopathy. 5. Hyperkalemia.corrected 6. Metabolic / respiratory acidosis 7. Hypocalcemia. 8. POSSIBLE ABD COMPARTMENT SYNDROME , s/p Exp lap 9. HEP B S POSITIVE 10. Hypernatremia, resolved 11. LLL small effusion, monitor 12. FEVER PER ID CXR IMPRESSION: 1. Stable bibasilar opacities. 2. Stable small left greater than right pleural effusions. 3. Life-support devices as above. Plan . CT C/A/P TODAY WILL CONTINUE SAME SUPPORT, NOT READY FOR TRIAL STILL TENUOUS SITUATION AM CXR AC MODE ANTI BX PER ID FOLLOW SURGERY INPUT DESTINI MATOS MD Jul 04, 2019 16:59
[2019-07-04] MEDS ORDERED: DEXTROSE 70% IV SCH ×8 (22:00)
[2019-07-04] MEDS ORDERED: [UNRECOGNIZED DRUG - OTHER] IV SCH ×8 (22:00)
[2019-07-04] MEDS ORDERED: TOTAL PARENTERAL NUTRITION IV SCH ×8 (22:00)
[2019-07-04] MEDS ORDERED: AMINO ACID IV SCH ×8 (22:00)
[2019-07-05] VITALS (24 sets, daily range): BP systolic 98–128; BP diastolic 54–79
[2019-07-05] MEDS: DEXMEDETOMIDINE 400 MCG in IV NORMAL SALINE 100ML 96 ML IV PRN ×8 (02:47→21:07)
[2019-07-05] MEDS: PROPOFOL 100 ML IV PRN ×3 (03:20→12:08)
[2019-07-05] MEDS: PANTOPRAZOLE IV PUSH 40 MG VIAL. IVP SCH ×2 (06:07→18:26)
[2019-07-05] MEDS: MEROPENEM 500 MG in IV NORMAL SALINE 50ML 50 ML IV SCH ×3 (06:07→18:26)
[2019-07-05] MEDS: ENOXAPARIN 40 MG/0.4 ML SYRINGE. SQ SCH (06:08)
[2019-07-05] MEDS: INSULIN LISPRO 300 UNITS/3 ML VIAL. SQ SCH ×4 (06:14→18:00)
--- NOTE | 2019-07-05 06:44 | PDOC ---
PULMONARY PROGRESS NOTES Subjective on vent, sedated, on propofol, precedex, fentanyl, small trach secretion, t max 102 Vitals Vital Signs Date Time Temp Pulse Resp B/P (MAP) Pulse Ox O2 Delivery O2 Flow Rate FiO2 07/05/19 06:00 100.9 95 20 98/57 (71) 100 Ventilator 100.9 07/04/19 14:39 3.0 Comments ros unable to obtain sedated on vent HEENT: Other (nc at perrl nose clear, neck, trach site ok, no lad, no thyromegaly) Lungs: Crackles Cardiovascular: S1, S2 Abdomen: Other (/distended/firm ) Extremities: No Edema Skin: Warm Labs Laboratory Tests Test 07/03/19 07:43 07/03/19 08:30 07/03/19 09:17 07/03/19 10:55 Glucose (Fingerstick) 153 mg/dL (70-99) 186 mg/dL (70-99) 190 mg/dL (70-99) O2 Saturation 97 % (92-99) Arterial Blood pH 7.41 (7.35-7.45) Arterial Blood pCO2 at Patient Temp 40 mmHg (35-46) Arterial Blood pO2 at Patient Temp 97 mmHg (75-108) Arterial Blood HCO3 25 mmol/L (21-28) Arterial Blood Base Excess 0 mmol/L (-3-3) FiO2 40 Test 07/03/19 12:09 07/03/19 13:24 07/03/19 21:41 07/04/19 00:47 Glucose (Fingerstick) 167 mg/dL (70-99) 118 mg/dL (70-99) 127 mg/dL (70-99) 180 mg/dL (70-99) Test 07/04/19 06:16 07/04/19 08:00 07/04/19 08:20 07/04/19 08:59 Glucose (Fingerstick) 161 mg/dL (70-99) 170 mg/dL (70-99) O2 Saturation 99 % (92-99) Arterial Blood pH 7.43 (7.35-7.45) Arterial Blood pCO2 at Patient Temp 26 mmHg (35-46) Arterial Blood pO2 at Patient Temp 142 mmHg (75-108) Arterial Blood HCO3 17 mmol/L (21-28) Arterial Blood Base Excess -6 mmol/L (-3-3) FiO2 40 White Blood Count 14.0 x10^3/uL (4.0-11.0) Red Blood Count 2.66 x10^6/uL (4.30-5.70) Hemoglobin 7.6 g/dL (13.0-17.5) Hematocrit 23.7 % (39.0-53.0) Mean Corpuscular Volume 89 fL (79-100) Mean Corpuscular Hemoglobin 29 pg (25-35) Mean Corpuscular Hemoglobin Concent 32 g/dL (31-37) Red Cell Distribution Width 15.0 % (11.5-14.5) Platelet Count 428 x10^3/uL (140-400) Neutrophils (%) (Auto) 78 % (31-73) Lymphocytes (%) (Auto) 11 % (24-48) Monocytes (%) (Auto) 10 % (0-9) Eosinophils (%) (Auto) 0 % (0-3) Basophils (%) (Auto) 1 % (0-3) Neutrophils # (Auto) 10.9 x10^3/uL (1.8-7.7) Lymphocytes # (Auto) 1.6 x10^3/uL (1.0-4.8) Monocytes # (Auto) 1.4 x10^3/uL (0.0-1.1) Eosinophils # (Auto) 0.0 x10^3/uL (0.0-0.7) Basophils # (Auto) 0.1 x10^3/uL (0.0-0.2) Urine Collection Type Unknown Urine Color Demi Urine Clarity Clear Urine pH 6.0 (<5.0-8.0) Urine Specific [place] 1.020 (1.000-1.030) Urine Protein Negative mg/dL (NEG-TRACE) Urine Glucose (UA) Negative mg/dL (NEG) Urine Ketones (Stick) Negative mg/dL (NEG) Urine Blood Negative (NEG) Urine Nitrite Negative (NEG) Urine Bilirubin Moderate (NEG) Urine Urobilinogen Dipstick 1.0 mg/dL (0.2 mg/dL) Urine Leukocyte Esterase Negative (NEG) Urine RBC 0 /HPF (0-2) Urine WBC Rare /HPF (0-4) Urine Squamous Epithelial Cells Occ /LPF Urine Bacteria Few /HPF (0-FEW) Sodium Level 148 mmol/L (136-145) Potassium Level 3.7 mmol/L (3.5-5.1) Chloride Level 110 mmol/L (98-107) Carbon Dioxide Level 29 mmol/L (21-32) Anion Gap 9 (6-14) Blood Urea Nitrogen 50 mg/dL (8-26) Creatinine 1.1 mg/dL (0.7-1.3) Estimated GFR (Cockcroft-Gault) 86.1 Glucose Level 164 mg/dL (70-99) Calcium Level 8.2 mg/dL (8.5-10.1) Test 07/04/19 14:03 07/04/19 18:38 07/04/19 21:08 07/04/19 23:53 Glucose (Fingerstick) 228 mg/dL (70-99) 220 mg/dL (70-99) 184 mg/dL (70-99) 213 mg/dL (70-99) Laboratory Tests Test 07/04/19 08:00 07/04/19 08:20 07/04/19 08:59 07/04/19 14:03 O2 Saturation 99 % (92-99) Arterial Blood pH 7.43 (7.35-7.45) Arterial Blood pCO2 at Patient Temp 26 mmHg (35-46) Arterial Blood pO2 at Patient Temp 142 mmHg (75-108) Arterial Blood HCO3 17 mmol/L (21-28) Arterial Blood Base Excess -6 mmol/L (-3-3) FiO2 40 White Blood Count 14.0 x10^3/uL (4.0-11.0) Red Blood Count 2.66 x10^6/uL (4.30-5.70) Hemoglobin 7.6 g/dL (13.0-17.5) Hematocrit 23.7 % (39.0-53.0) Mean Corpuscular Volume 89 fL (79-100) Mean Corpuscular Hemoglobin 29 pg (25-35) Mean Corpuscular Hemoglobin Concent 32 g/dL (31-37) Red Cell Distribution Width 15.0 % (11.5-14.5) Platelet Count 428 x10^3/uL (140-400) Neutrophils (%) (Auto) 78 % (31-73) Lymphocytes (%) (Auto) 11 % (24-48) Monocytes (%) (Auto) 10 % (0-9) Eosinophils (%) (Auto) 0 % (0-3) Basophils (%) (Auto) 1 % (0-3) Neutrophils # (Auto) 10.9 x10^3/uL (1.8-7.7) Lymphocytes # (Auto) 1.6 x10^3/uL (1.0-4.8) Monocytes # (Auto) 1.4 x10^3/uL (0.0-1.1) Eosinophils # (Auto) 0.0 x10^3/uL (0.0-0.7) Basophils # (Auto) 0.1 x10^3/uL (0.0-0.2) Urine Collection Type Unknown Urine Color Demi Urine Clarity Clear Urine pH 6.0 (<5.0-8.0) Urine Specific [place] 1.020 (1.000-1.030) Urine Protein Negative mg/dL (NEG-TRACE) Urine Glucose (UA) Negative mg/dL (NEG) Urine Ketones (Stick) Negative mg/dL (NEG) Urine Blood Negative (NEG) Urine Nitrite Negative (NEG) Urine Bilirubin Moderate (NEG) Urine Urobilinogen Dipstick 1.0 mg/dL (0.2 mg/dL) Urine Leukocyte Esterase Negative (NEG) Urine RBC 0 /HPF (0-2) Urine WBC Rare /HPF (0-4) Urine Squamous Epithelial Cells Occ /LPF Urine Bacteria Few /HPF (0-FEW) Sodium Level 148 mmol/L (136-145) Potassium Level 3.7 mmol/L (3.5-5.1) Chloride Level 110 mmol/L (98-107) Carbon Dioxide Level 29 mmol/L (21-32) Anion Gap 9 (6-14) Blood Urea Nitrogen 50 mg/dL (8-26) Creatinine 1.1 mg/dL (0.7-1.3) Estimated GFR (Cockcroft-Gault) 86.1 Glucose Level 164 mg/dL (70-99) Calcium Level 8.2 mg/dL (8.5-10.1) Glucose (Fingerstick) 170 mg/dL (70-99) 228 mg/dL (70-99) Test 07/04/19 18:38 07/04/19 21:08 07/04/19 23:53 Glucose (Fingerstick) 220 mg/dL (70-99) 184 mg/dL (70-99) 213 mg/dL (70-99) Medications Active Scripts Medications Dose Route/Sig Max Daily Dose Days Date Category Comments CXR reviewed Stable bibasilar pulmonary infiltrates and small left pleural effusion. ct of chest and abd 1. Redemonstrated sequela of necrotic pancreatitis. As before there is extensive mesenteric edema but the volume of free abdominopelvic fluid has decreased. Edematous enlargement of the pancreas has slightly decreased. A fluid collection along the undersurface of the stomach has decreased in size, as detailed above. A loculated appearing fluid collection within the mid abdomen anterior to the IVC and aorta (image 55 series 4) measures similar to the prior. Ill-defined area of hypoattenuation involving the mid pancreatic body is slightly more conspicuous from the prior (image 37 series 4). It is uncertain if this represents evolving parenchymal necrosis or a developing fluid collection as assessment is limited without intravenous contrast. No air and fluid containing collection seen to suggest an abscess but note is made that the sterility of the aforementioned fluid collections is indeterminate by the imaging appearance alone. 2. Extensive reactive inflammatory changes of the abdominopelvic organs. No findings of bowel obstruction. 3. A gastrostomy tube has been placed in the interim. The tube tip is not within the stomach and is seen at the distal end of the surgical tract just deep to the ventral body wall musculature - sagittal images 35 and 36 series 9. 4. Three abdominal drains. No discrete fluid collection surrounding the tips of these drains. Cholecystostomy tube, ET tube, enteric tube, [place] and right PICC are appropriately positioned. 5. Partial collapse of the left more so than right lower lobes. Moderate-sized left pleural effusion with overlying atelectasis. No infiltrate typical of an organizing pneumonia identified. Impression . IMPRESSION: 1. Acute hypoxemic respiratory failure, multifactorial. 2. Acute gallstone pancreatitis./ Necrosis. s/p Exploratory laparotomy, pancreatic necrosectomy, cholecystostomy tube placement, Gastrostomy placement with jejunal extension, tracheostomy placement (specifically 8 shiley cuffed) 3/8 3. Acute kidney failure. improving 4. Metabolic toxic encephalopathy. 5. Hyperkalemia.corrected 6. Metabolic / respiratory acidosis 7. Hypocalcemia. 8. POSSIBLE ABD COMPARTMENT SYNDROME , s/p Exp lap 9. HEP B S POSITIVE 10. Hypernatremia, resolved 11. LLL small effusion, monitor 12. FEVER PER ID Plan . cont vent support setting reviewed, weaning as tolerated will check TG, if high, will change propofol to versed CT C/A/P reviewed per surgery lovenox protonix for prophylaxis ANTI BX PER ID FOLLOW SURGERY INPUT discussed w CHRIS Shannon MD Jul 05, 2019 06:44
[2019-07-05] MEDS: ALBUTEROL SULFATE 2.5 MG/3 ML NEBU. NEB SCH ×4 (07:39→20:42)
--- NOTE | 2019-07-05 07:57 | RAD ---
AP chest x-ray HISTORY: Respiratory failure. IMPRESSION: CT chest July 04, 2019. FINDINGS: Tracheostomy. Right PICC line tip atrial caval junction. Heart size stable. No pneumothorax. Consolidated left lower lobe opacity during the diaphragm, small left pleural effusion is not excluded. Mild medial basal right lower lobe and right perihilar opacity. These are stable. IMPRESSION: Stable bibasilar pulmonary infiltrates and small left pleural effusion. Electronically signed by: Juve Ovalle MD (07/05/2019 7:54 AM) [email or web address]
[2019-07-05 08:16] LABS: BASE EXCESS ABG 1 mmol/L (-3-3); HCO3 ABG 26 mmol/L (21-28); PCO2 ABG 41 mmHg (35-46); PO2 ABG 98 mmHg (75-108); SAT O2 ABG 97 % (92-99)
[2019-07-05 08:29] LABS: FIO2 ABG 40%
[2019-07-05] MEDS: FUROSEMIDE 40 MG/4 ML VIAL. IVP SCH (08:45)
[2019-07-05] MEDS: MICAFUNGIN 100 MG in IV DEXTROSE 5% 100ML 100 ML IV SCH (08:53)
[2019-07-05] MEDS: INSULIN GLARGINE SYRINGE. SQ SCH ×2 (08:56→21:00)
--- NOTE | 2019-07-05 09:25 | PDOC ---
PROGRESS NOTES Chief Complaint Chief Complaint Severe pancreatitis s/p ex-lap with pancreatic necrosectomy, cholecystectomy, gastrostomy tube lpacement, tracheostomy placement, 5 drains, 1.5L ascites drained Acute hypoxemic respiratory failure, multifactorial. Status post tracheostomy Acute gallstone pancreatitis./ Necrosis Acute kidney failure. improving Metabolic toxic encephalopathy. Hyperkalemia.corrected Metabolic / respiratory acidosis Hypocalcemia. Hepatitis B Hypernatremia LLL small effusion, monitor History of Present Illness History of Present Illness Mr Mata is a 49 yo M admitted with severe epigastric pain beginning in the morning of admission. Ultimately diagnosed with gallstone pancreatitis. Hemodialysis catheter placed for renal failure. Arterial blood gas revealed a pH of 7.30, PaCO2 of 31, PaO2 of 75, bicarb was 15. Consulted ID, GI, General surgery, nephrology, pulmonology 06/21: Ex-lap with pancreatic necrosectomy, cholecystectomy, gastrostomy tube lpacement, tracheostomy placement. 06/22 - 06/26: Has 5 abdominal drains plus a Lob[place] and an NG to suction, intubated, sedated, paralyzed 06/28- 07/02: remain on micafungin, TPN. Trached on vent, sedated, 40% FiO2 07/03: His dialysis catheter and central line were removed. Ventilated via trach and sedated Sedated on precedex. ABG reviewed, stable. Vitals stable, drains stable, still requiring ventilation on trach. Hb 7.6 plan: Trend CBC Vitals Vitals Vital Signs Date Time Temp Pulse Resp B/P (MAP) Pulse Ox O2 Delivery O2 Flow Rate FiO2 07/05/19 09:03 99 Ventilator 07/05/19 09:00 100.6 87 20 110/63 (79) 100.6 07/04/19 14:39 3.0 Physical Exam Physical Exam GENERAL: Sedated, trached/vent HEENT: Pupils equal, OGT, NECK: Trach/vent LUNGS: Diminished aeration bases HEART: S1, S2, regular, no murmurs. ABDOMEN: Distended, fairly tight, bowel sounds present. drains x 5, wound vac in place : [place] + EXTREMITIES: Trace edema, no cyanosis. SCDs bilaterally SKIN: Warm, dry. 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 RT IJ removed; RIJ/HD catheter removed RT PICC line clean ( 07/01) General: No acute distress Heart: Regular rate, Normal S1, Normal S2, No murmurs, Gallops Lungs: Crackles Abdomen: Other (distended, drains, tubes in place) Extremities: No clubbing, No cyanosis, No edema, Normal pulses, No tenderness/swelling Skin: No significant lesion Labs LABS Laboratory Tests Test 07/04/19 14:03 07/04/19 18:38 07/04/19 21:08 07/04/19 23:53 Glucose (Fingerstick) 228 mg/dL (70-99) 220 mg/dL (70-99) 184 mg/dL (70-99) 213 mg/dL (70-99) Test 07/05/19 06:10 07/05/19 07:30 07/05/19 08:43 Glucose (Fingerstick) 154 mg/dL (70-99) 139 mg/dL (70-99) O2 Saturation 97 % (92-99) Arterial Blood pH 7.42 (7.35-7.45) Arterial Blood pCO2 at Patient Temp 41 mmHg (35-46) Arterial Blood pO2 at Patient Temp 98 mmHg (75-108) Arterial Blood HCO3 26 mmol/L (21-28) Arterial Blood Base Excess 1 mmol/L (-3-3) FiO2 40% Assessment and Plan Assessmemt and Plan Problems Medical Problems: (1) Acute pancreatitis Status: Acute (2) Nausea & vomiting Status: Acute Comment Review of Relevant I have reviewed the following items alexandra (where applicable) has been applied. Labs Laboratory Tests Test 07/03/19 09:17 07/03/19 10:55 07/03/19 12:09 07/03/19 13:24 Glucose (Fingerstick) 186 mg/dL (70-99) 190 mg/dL (70-99) 167 mg/dL (70-99) 118 mg/dL (70-99) Test 07/03/19 21:41 07/04/19 00:47 07/04/19 06:16 07/04/19 08:00 Glucose (Fingerstick) 127 mg/dL (70-99) 180 mg/dL (70-99) 161 mg/dL (70-99) O2 Saturation 99 % (92-99) Arterial Blood pH 7.43 (7.35-7.45) Arterial Blood pCO2 at Patient Temp 26 mmHg (35-46) Arterial Blood pO2 at Patient Temp 142 mmHg (75-108) Arterial Blood HCO3 17 mmol/L (21-28) Arterial Blood Base Excess -6 mmol/L (-3-3) FiO2 40 Test 07/04/19 08:20 07/04/19 08:59 07/04/19 14:03 07/04/19 18:38 White Blood Count 14.0 x10^3/uL (4.0-11.0) Red Blood Count 2.66 x10^6/uL (4.30-5.70) Hemoglobin 7.6 g/dL (13.0-17.5) Hematocrit 23.7 % (39.0-53.0) Mean Corpuscular Volume 89 fL (79-100) Mean Corpuscular Hemoglobin 29 pg (25-35) Mean Corpuscular Hemoglobin Concent 32 g/dL (31-37) Red Cell Distribution Width 15.0 % (11.5-14.5) Platelet Count 428 x10^3/uL (140-400) Neutrophils (%) (Auto) 78 % (31-73) Lymphocytes (%) (Auto) 11 % (24-48) Monocytes (%) (Auto) 10 % (0-9) Eosinophils (%) (Auto) 0 % (0-3) Basophils (%) (Auto) 1 % (0-3) Neutrophils # (Auto) 10.9 x10^3/uL (1.8-7.7) Lymphocytes # (Auto) 1.6 x10^3/uL (1.0-4.8) Monocytes # (Auto) 1.4 x10^3/uL (0.0-1.1) Eosinophils # (Auto) 0.0 x10^3/uL (0.0-0.7) Basophils # (Auto) 0.1 x10^3/uL (0.0-0.2) Urine Collection Type Unknown Urine Color Demi Urine Clarity Clear Urine pH 6.0 (<5.0-8.0) Urine Specific [place] 1.020 (1.000-1.030) Urine Protein Negative mg/dL (NEG-TRACE) Urine Glucose (UA) Negative mg/dL (NEG) Urine Ketones (Stick) Negative mg/dL (NEG) Urine Blood Negative (NEG) Urine Nitrite Negative (NEG) Urine Bilirubin Moderate (NEG) Urine Urobilinogen Dipstick 1.0 mg/dL (0.2 mg/dL) Urine Leukocyte Esterase Negative (NEG) Urine RBC 0 /HPF (0-2) Urine WBC Rare /HPF (0-4) Urine Squamous Epithelial Cells Occ /LPF Urine Bacteria Few /HPF (0-FEW) Sodium Level 148 mmol/L (136-145) Potassium Level 3.7 mmol/L (3.5-5.1) Chloride Level 110 mmol/L (98-107) Carbon Dioxide Level 29 mmol/L (21-32) Anion Gap 9 (6-14) Blood Urea Nitrogen 50 mg/dL (8-26) Creatinine 1.1 mg/dL (0.7-1.3) Estimated GFR (Cockcroft-Gault) 86.1 Glucose Level 164 mg/dL (70-99) Calcium Level 8.2 mg/dL (8.5-10.1) Glucose (Fingerstick) 170 mg/dL (70-99) 228 mg/dL (70-99) 220 mg/dL (70-99) Test 07/04/19 21:08 07/04/19 23:53 07/05/19 06:10 07/05/19 07:30 Glucose (Fingerstick) 184 mg/dL (70-99) 213 mg/dL (70-99) 154 mg/dL (70-99) O2 Saturation 97 % (92-99) Arterial Blood pH 7.42 (7.35-7.45) Arterial Blood pCO2 at Patient Temp 41 mmHg (35-46) Arterial Blood pO2 at Patient Temp 98 mmHg (75-108) Arterial Blood HCO3 26 mmol/L (21-28) Arterial Blood Base Excess 1 mmol/L (-3-3) FiO2 40% Test 07/05/19 08:43 Glucose (Fingerstick) 139 mg/dL (70-99) Laboratory Tests Test 07/04/19 14:03 07/04/19 18:38 07/04/19 21:08 07/04/19 23:53 Glucose (Fingerstick) 228 mg/dL (70-99) 220 mg/dL (70-99) 184 mg/dL (70-99) 213 mg/dL (70-99) Test 07/05/19 06:10 07/05/19 07:30 07/05/19 08:43 Glucose (Fingerstick) 154 mg/dL (70-99) 139 mg/dL (70-99) O2 Saturation 97 % (92-99) Arterial Blood pH 7.42 (7.35-7.45) Arterial Blood pCO2 at Patient Temp 41 mmHg (35-46) Arterial Blood pO2 at Patient Temp 98 mmHg (75-108) Arterial Blood HCO3 26 mmol/L (21-28) Arterial Blood Base Excess 1 mmol/L (-3-3) FiO2 40% Microbiology 06/30/19 Blood Culture - Preliminary, Resulted NO GROWTH AFTER 4 DAYS 06/23/19 - Final, Complete 06/23/19 - Final, Complete 06/23/19 - Final, Complete 06/23/19 Gram Stain Evaluation - Final, Complete 06/23/19 Sputum Culture - Final, Complete 06/23/19 Sputum Result 1 - Final, Complete 06/22/19 AFB Specimen Processing Tissue - Final, Resulted 06/22/19 Acid Fast Bacilli Culture, Resulted Pending 06/22/19 Gram Stain - Final, Resulted 06/22/19 Fungal Culture - Preliminary, Resulted 06/22/19 Fungal Culture Result 1 - Preliminary, Resulted Medications Current Medications Morphine Sulfate (Morphine Sulfate) 4 mg PRN Q15MIN PRN IV/SQ PAIN GREATER THAN 3/10 Last administered on 06/11/19at 04:58; Start 06/11/19 at 04:30; Stop 06/11/19 at 16:47; Status DC Sodium Chloride 1,000 ml @ 1,000 mls/hr Q1H IV Last administered on 06/11/19at 04:34; Start 06/11/19 at 04:30; Stop 06/11/19 at 05:29; Status DC Ondansetron HCl (Zofran) 4 mg 1X ONCE IV Last administered on 06/11/19at 04:33; Start 06/11/19 at 04:30; Stop 06/11/19 at 04:33; Status DC Iohexol (Omnipaque 350 Mg/ml) 100 ml 1X ONCE IV Last administered on 06/11/19at 05:01; Start 06/11/19 at 04:45; Stop 06/11/19 at 04:46; Status DC Info (CONTRAST GIVEN -- Rx MONITORING) 1 each PRN DAILY PRN MC SEE COMMENTS; Start 06/11/19 at 04:45; Stop 06/13/19 at 04:44; Status DC Fentanyl Citrate (Fentanyl 2ml Vial) 100 mcg STK-MED ONCE .ROUTE ; Start 06/11/19 at 04:42; Stop 06/11/19 at 04:42; Status DC Fentanyl Citrate (Fentanyl 2ml Vial) 50 mcg 1X ONCE IVP Last administered on 06/11/19at 04:45; Start 06/11/19 at 05:00; Stop 06/11/19 at 05:01; Status DC Ondansetron HCl (Zofran) 4 mg PRN Q8HRS PRN IV NAUSEA/VOMITING Last administered on 06/12/19at 03:29; Start 06/11/19 at 05:45; Stop 06/12/19 at 05:44; Status DC Morphine Sulfate (Morphine Sulfate) 4 mg PRN Q2HR PRN IV PAIN Last administered on 06/11/19at 07:37; Start 06/11/19 at 05:45; Stop 06/11/19 at 11:54; Status DC Sodium Chloride 1,000 ml @ 150 mls/hr Q6H40M IV Last administered on 06/12/19at 03:28; Start 06/11/19 at 05:45; Stop 06/12/19 at 11:01; Status DC Hydromorphone HCl (Dilaudid) 0.5 mg PRN Q3HRS PRN IV PAIN Last administered on 06/11/19at 08:38; Start 06/11/19 at 05:45; Stop 06/11/19 at 09:12; Status DC Potassium Chloride/Water 100 ml @ 100 mls/hr Q1H IV Last administered on 06/11/19at 08:41; Start 06/11/19 at 06:00; Stop 06/11/19 at 07:59; Status DC Hydromorphone HCl (Dilaudid) 1 mg PRN Q3HRS PRN IV PAIN Last administered on 06/11/19at 09:29; Start 06/11/19 at 09:15; Stop 06/11/19 at 11:54; Status DC Prochlorperazine Edisylate (Compazine) 10 mg PRN Q8HRS PRN IV NAUSEA/VOMITING, 2ND CHOICE Last administered on 06/12/19at 14:59; Start 06/11/19 at 12:00 Hydromorphone HCl (Dilaudid) 1 mg PRN Q2HRS PRN IV SEVERE PAIN Last administered on 06/29/19at 07:35; Start 06/11/19 at 12:00 Pantoprazole Sodium (PROTONIX VIAL for IV PUSH) 40 mg DAILYAC IVP Last administered on 06/12/19at 08:29; Start 06/11/19 at 15:00; Stop 06/12/19 at 16:23; Status DC Lorazepam (Ativan Inj) 1 mg PRN Q6HRS PRN IVP ANXIETY / AGITATION Last administered on 06/29/19at 07:48; Start 06/11/19 at 18:15 Hydralazine HCl (Apresoline Inj) 10 mg PRN Q6HRS PRN IVP ELEVATED BP, SEE COMMENTS Last administered on 06/18/19at 09:32; Start 06/11/19 at 18:15; Stop 06/21/19 at 09:12; Status DC Nystatin (Nystop) 1 devorah PRN QID PRN TP FUNGAL RASH Last administered on 06/11/19at 23:19; Start 06/11/19 at 23:15 Sodium Chloride 1,000 ml @ 1,000 mls/hr 1X ONCE IV Last administered on 06/12/19at 05:27; Start 06/12/19 at 06:00; Stop 06/12/19 at 06:59; Status DC Sodium Chloride 1,000 ml @ 1,000 mls/hr 1X ONCE IV Last administered on 06/12/19at 05:25; Start 06/12/19 at 05:00; Stop 06/12/19 at 05:59; Status DC Sodium Chloride 1,000 ml @ 200 mls/hr Q5H IV Last administered on 06/12/19at 06:36; Start 06/12/19 at 07:00; Stop 06/12/19 at 11:01; Status DC Sodium Bicarbonate 50 meq/Sodium Chloride 1,050 ml @ 150 mls/hr Q7H IV Last administered on 06/13/19at 04:16; Start 06/12/19 at 11:00; Stop 06/13/19 at 14:48; Status DC Amino Acids/ Glycerin/ Electrolytes 1,000 ml @ 80 mls/hr [id number] IV ; Start 06/12/19 at 10:00; Status UNV Amino Acids/ Electrolytes/ Dextrose 1,000 ml @ 80 mls/hr [id number] IV ; Start 06/12/19 at 10:15; Stop 06/18/19 at 13:50; Status DC Piperacillin Sod/ Tazobactam Sod (Zosyn Per Pharmacy) 1 each PRN DAILY PRN MC SEE COMMENTS; Start 06/12/19 at 13:15; Stop 06/12/19 at 19:16; Status DC Piperacillin Sod/ Tazobactam Sod 2.25 gm/Sodium Chloride 50 ml @ 100 mls/hr Q6HRS IV Last administered on 06/12/19at 13:48; Start 06/12/19 at 13:30; Stop 06/12/19 at 19:15; Status DC Sodium Bicarbonate (Sodium Bicarb Adult 8.4% Syr) 50 meq 1X ONCE IV Last administered on 06/12/19at 16:12; Start 06/12/19 at 16:00; Stop 06/12/19 at 16:01; Status DC Calcium Gluconate 1000 mg/Sodium Chloride 110 ml @ 220 mls/hr 1X ONCE IV Last administered on 06/12/19at 16:13; Start 06/12/19 at 16:00; Stop 06/12/19 at 16:29; Status DC Dextrose (Dextrose 50%-Water Syringe) 25 gm 1X ONCE IV Last administered on 06/12/19at 16:13; Start 06/12/19 at 16:00; Stop 06/12/19 at 16:01; Status DC Insulin Human Regular (HumuLIN R VIAL) 10 unit 1X ONCE IV Last administered on 06/12/19at 16:14; Start 06/12/19 at 16:00; Stop 06/12/19 at 16:01; Status DC Furosemide (Lasix) 40 mg 1X ONCE IVP Last administered on 06/12/19at 16:13; Start 06/12/19 at 16:00; Stop 06/12/19 at 16:01; Status DC Pantoprazole Sodium (PROTONIX VIAL for IV PUSH) 40 mg [id number] IVP Last administered on 06/13/19at 06:21; Start 06/12/19 at 18:00; Stop 06/13/19 at 18:49; Status DC Meropenem 500 mg/ Sodium Chloride 50 ml @ 100 mls/hr Q12HR IV Last administered on 06/17/19at 20:59; Start 06/12/19 at 21:00; Stop 06/18/19 at 07:26; Status DC Calcium Gluconate 1000 mg/Sodium Chloride 110 ml @ 220 mls/hr 1X ONCE IV Last administered on 06/12/19at 20:35; Start 06/12/19 at 19:15; Stop 06/12/19 at 19:44; Status DC Lidocaine HCl (Buffered Lidocaine 1%) 3 ml STK-MED ONCE .ROUTE ; Start 06/13/19 at 08:47; Stop 06/13/19 at 08:47; Status DC Lidocaine HCl (Buffered Lidocaine 1%) 6 ml 1X ONCE INJ Last administered on 06/13/19at 09:23; Start 06/13/19 at 09:30; Stop 06/13/19 at 09:31; Status DC Insulin Human Lispro (HumaLOG) 0-7 UNITS TIDWMEALS SQ Last administered on 06/13/19at 12:14; Start 06/13/19 at 12:00; Stop 06/14/19 at 23:29; Status DC Dextrose (Dextrose 50%-Water Syringe) 12.5 gm PRN Q15MIN PRN IV SEE COMMENTS; Start 06/13/19 at 11:15; Stop 06/14/19 at 23:29; Status DC Insulin Human Regular 100 unit/ Sodium Chloride 101 ml @ 0 mls/hr CONT PRN IV SEE I/O RECORD Last administered on 06/13/19at 15:03; Start 06/13/19 at 14:15; Stop 06/21/19 at 12:37; Status DC Sodium Chloride 1,000 ml @ 1,000 mls/hr Q1H PRN IV hypotension; Start 06/13/19 at 14:00; Stop 06/13/19 at 19:59; Status DC Sodium Chloride 1,000 ml @ 400 mls/hr Q2H30M PRN IV PATENCY; Start 06/13/19 at 14:00; Stop 06/14/19 at 01:59; Status DC Info (PHARMACY MONITORING -- do not chart) 1 each PRN DAILY PRN MC SEE COMMENTS; Start 06/13/19 at 14:45; Stop 06/13/19 at 14:51; Status DC Info (PHARMACY MONITORING -- do not chart) 1 each PRN DAILY PRN MC SEE COMMENTS; Start 06/13/19 at 14:45; Stop 06/27/19 at 12:33; Status DC Pantoprazole Sodium (PROTONIX VIAL for IV PUSH) 40 mg [id number] IVP Last administered on 07/05/19at 06:07; Start 06/13/19 at 21:00 Dexmedetomidine HCl 400 mcg/ Sodium Chloride 100 ml @ 0 mls/hr CONT PRN IV PER PROTOCOL Last administered on 06/21/19at 05:52; Start 06/13/19 at 19:00; Stop 06/21/19 at 19:39; Status DC Sodium Chloride 500 ml @ 500 mls/hr 1X PRN PRN IV SEE COMMENTS; Start 06/13/19 at 19:00; Stop 07/05/19 at 08:01; Status DC Atropine Sulfate (ATROPINE 0.5mg SYRINGE) 0.5 mg PRN Q5MIN PRN IV SEE COMMENTS; Start 06/13/19 at 19:00; Stop 06/27/19 at 12:28; Status DC Sodium Chloride 1,000 ml @ 1,000 mls/hr Q1H PRN IV hypotension; Start 06/14/19 at 08:55; Stop 06/14/19 at 14:54; Status DC Albumin Human 200 ml @ 200 mls/hr 1X PRN PRN IV Hypotension Last administered on 06/14/19at 09:40; Start 06/14/19 at 09:00; Stop 06/14/19 at 14:59; Status DC Sodium Chloride 1,000 ml @ 400 mls/hr Q2H30M PRN IV PATENCY; Start 06/14/19 at 08:55; Stop 06/14/19 at 20:54; Status DC Info (PHARMACY MONITORING -- do not chart) 1 each PRN DAILY PRN MC SEE COMMENTS; Start 06/14/19 at 09:00; Stop 06/14/19 at 09:06; Status DC Info (PHARMACY MONITORING -- do not chart) 1 each PRN DAILY PRN MC SEE COMMENTS; Start 06/14/19 at 09:00; Stop 06/14/19 at 09:06; Status DC Calcium Chloride 2000 mg/Sodium Chloride 120 ml @ 240 mls/hr PRN QID PRN IV for CALCIUM < 5.8 Last administered on 06/15/19at 08:32; Start 06/14/19 at 10:15; Stop 06/15/19 at 09:58; Status DC Magnesium Sulfate 50 ml @ 25 mls/hr PRN DAILY PRN IV for Mag < 1.7 on am labs; Start 06/14/19 at 10:30 Norepinephrine Bitartrate 8 mg/ Dextrose 258 ml @ 20.027 mls/ hr CONT PRN IV PER PROTOCOL Last administered on 06/14/19at 10:31; Start 06/14/19 at 10:30 Succinylcholine Chloride (Anectine) 200 mg STK-MED ONCE .ROUTE ; Start 06/14/19 at 12:22; Stop 06/14/19 at 12:23; Status DC Etomidate (Amidate) 20 mg STK-MED ONCE IV ; Start 06/14/19 at 12:22; Stop 06/14/19 at 12:23; Status DC Fentanyl Citrate 30 ml @ 0 mls/hr CONT PRN IV SEE PROTOCOL Last administered on 06/19/19at 08:10; Start 06/14/19 at 12:45; Stop 06/19/19 at 11:00; Status DC Chlorhexidine Gluconate (Peridex) 15 ml BID MM Last administered on 06/30/19at 20:47; Start 06/14/19 at 21:00; Stop 07/01/19 at 16:34; Status DC Midazolam HCl 50 mg/Sodium Chloride 50 ml @ 0 mls/hr CONT PRN IV SEE PROTOCOL Last administered on 06/26/19at 19:35; Start 06/14/19 at 12:45 Midazolam HCl (Versed) 5 mg STK-MED ONCE .ROUTE ; Start 06/14/19 at 12:48; Stop 06/14/19 at 12:48; Status DC Fentanyl Citrate (Fentanyl 2ml Vial) 100 mcg STK-MED ONCE .ROUTE ; Start 06/14/19 at 12:48; Stop 06/14/19 at 12:48; Status DC Midazolam HCl (Versed) 5 mg 1X ONCE IV Last administered on 06/14/19at 12:59; Start 06/14/19 at 13:00; Stop 06/14/19 at 13:01; Status DC Fentanyl Citrate (Fentanyl 2ml Vial) 100 mcg 1X ONCE IM Last administered on at 12:58; Start 06/14/19 at 13:00; Stop 06/14/19 at 13:01; Status DC Succinylcholine Chloride (Anectine) 200 mg 1X ONCE IV Last administered on 06/14/19at 12:59; Start 06/14/19 at 13:00; Stop 06/14/19 at 13:01; Status DC Etomidate (Amidate) 14 mg 1X ONCE IV Last administered on 06/14/19at 12:59; Start 06/14/19 at 13:00; Stop 06/14/19 at 13:01; Status DC Acetaminophen (Tylenol Supp) 650 mg PRN Q6HRS PRN ND MILD PAIN / TEMP Last administered on 07/04/19at 23:49; Start 06/14/19 at 20:00 Linezolid/Dextrose 300 ml @ 300 mls/hr Q12HR IV Last administered on 07/03/19at 08:34; Start 06/14/19 at 21:00; Stop 07/03/19 at 09:09; Status DC Insulin Human Lispro (HumaLOG) 0-7 UNITS TIDWMEALS SQ ; Start 06/15/19 at 08:00; Stop 06/15/19 at 00:03; Status DC Dextrose (Dextrose 50%-Water Syringe) 12.5 gm PRN Q15MIN PRN IV SEE COMMENTS; Start 06/14/19 at 23:30; Stop 07/03/19 at 10:41; Status DC Insulin Human Lispro (HumaLOG) 0-7 UNITS Q4HRS SQ Last administered on 06/23/19at 08:05; Start 06/15/19 at 00:15; Stop 07/01/19 at 16:41; Status DC Calcium Gluconate 20725 mg/Sodium Chloride 494 ml @ 4.051 mls/ hr CONT PRN IV SYMPTOMATIC HYPOCALCEMIA; Start 06/15/19 at 09:30; Stop 06/15/19 at 09:23; Status DC Calcium Gluconate 5000 mg/Sodium Chloride 260 ml @ 5.543 mls/ hr CONT PRN IV SYMPTOMATIC HYPOCALCEMIA; Start 06/15/19 at 09:30; Stop 06/15/19 at 09:26; Status DC Calcium Gluconate 5000 mg/Sodium Chloride 260 ml @ 5.543 mls/ hr CONT PRN IV SYMPTOMATIC HYPOCALCEMIA; Start 06/15/19 at 09:30; Stop 06/15/19 at 09:29; Status DC Calcium Gluconate 5000 mg/Sodium Chloride 250 ml @ 28.782 mls/ hr CONT PRN IV SYMPTOMATIC HYPOCALCEMIA Last administered on 06/18/19at 06:12; Start 06/15/19 at 09:30; Stop 06/18/19 at 13:50; Status DC Lidocaine HCl (Lidocaine Pf 2% Vial) 5 ml STK-MED ONCE .ROUTE ; Start 06/14/19 at 12:00; Stop 06/17/19 at 10:37; Status DC Meropenem 500 mg/ Sodium Chloride 50 ml @ 100 mls/hr Q6HRS IV Last administered on 07/05/19at 06:07; Start 06/18/19 at 07:30 Nicardipine HCl 50 mg/Sodium Chloride 250 ml @ 25 mls/hr CONT PRN IV SEE I/O RECORD; Start 06/18/19 at 11:45 Metoprolol Tartrate (Lopressor Vial) 5 mg 1X ONCE IVP ; Start 06/18/19 at 12:15; Stop 06/18/19 at 12:16; Status DC Fentanyl Citrate (Fentanyl 600 Mcg/30 ml MONKEY BREEDER) 600 mcg STK-MED ONCE IV ; Start 06/15/19 at 05:30; Stop 06/18/19 at 12:07; Status DC Enoxaparin Sodium (Lovenox 40mg Syringe) 40 mg Q24H SQ Last administered on 06/21/19at 23:02; Start 06/18/19 at 22:30; Stop 06/22/19 at 11:07; Status DC Fentanyl Citrate 55 ml @ 1.98 mls/hr CONT PRN IV SEE PROTOCOL; Start 06/19/19 at 08:15; Status Cancel Info (Tpn Per Pharmacy) 1 each PRN DAILY PRN MC SEE COMMENTS Last administered on 07/04/19at 11:32; Start 06/19/19 at 11:15 Hydralazine HCl (Apresoline Inj) 10 mg PRN Q4HRS PRN IVP ELEVATED BP, 1st choice Last administered on 06/26/19at 15:43; Start 06/19/19 at 11:45 Labetalol HCl (Normodyne Iv Push) 20 mg PRN Q2HR PRN IVP HYPERTENSION, 2nd choice Last administered on 06/26/19at 14:44; Start 06/19/19 at 11:45 Potassium Phosphate 13.6 mmol/Magnesium Sulfate 10 meq/ Calcium Gluconate 20 meq/ Multivitamins 10 ml/Chromium/ Copper/Manganese/ Seleni/Zn 0.5 ml/ Total Parenteral Nutrition/Amino Acids/Dextrose/ Fat Emulsion Intravenous 1,920 ml @ 80 mls/hr TPN CONT IV Last administered on 06/19/19at 21:31; Start 06/19/19 at 22:00; Stop 06/20/19 at 21:59; Status DC Fentanyl Citrate 30 ml @ 0 mls/hr CONT PRN IV SEE PROTOCOL Last administered on 06/24/19at 09:31; Start 06/19/19 at 18:00; Stop 06/24/19 at 11:38; Status DC Micafungin Sodium 100 mg/Dextrose 100 ml @ 100 mls/hr Q24H IV Last administered on 07/05/19at 08:53; Start 06/20/19 at 09:00 Potassium Phosphate 13.6 mmol/Calcium Gluconate 20 meq/ Multivitamins 10 ml/Chromium/ Copper/Manganese/ Seleni/Zn 0.5 ml/ Insulin Human Regular 10 unit/ Total Parenteral Nutrition/Amino Acids/Dextrose/ Fat Emulsion Intravenous 1,920 ml @ 80 mls/hr TPN CONT IV Last administered on 06/20/19at 21:57; Start 06/20/19 at 22:00; Stop 06/21/19 at 21:59; Status DC Insulin Glargine (Lantus Syringe) 15 unit QHS SQ Last administered on 06/20/19at 20:46; Start 06/20/19 at 21:00; Stop 06/21/19 at 12:32; Status DC Insulin Glargine (Lantus Syringe) 20 unit QHS SQ Last administered on 07/02/19at 20:46; Start 06/21/19 at 21:00; Stop 07/03/19 at 10:39; Status DC Potassium Phosphate 13.6 mmol/Calcium Gluconate 20 meq/ Multivitamins 10 ml/Chromium/ Copper/Manganese/ Seleni/Zn 0.5 ml/ Insulin Human Regular 10 unit/ Total Parenteral Nutrition/Amino Acids/Dextrose/ Fat Emulsion Intravenous 1,920 ml @ 80 mls/hr TPN CONT IV Last administered on 06/21/19at 21:31; Start 06/21/19 at 22:00; Stop 06/22/19 at 21:59; Status DC Dextrose 1,000 ml @ 75 mls/hr [id number] IV Last administered on 06/27/19at 01:32; Start 06/22/19 at 07:00; Stop 06/27/19 at 12:43; Status DC Albuterol Sulfate (Ventolin Neb Soln) 2.5 mg RTQID NEB Last administered on 07/05/19at 07:39; Start 06/22/19 at 08:00 Iohexol (Omnipaque 240 Mg/ml) 30 ml 1X ONCE PO ; Start 06/22/19 at 08:00; Stop 06/22/19 at 08:05; Status DC Iohexol (Omnipaque 300 Mg/ml) 75 ml 1X ONCE IV ; Start 06/22/19 at 08:00; Stop 06/22/19 at 08:01; Status Cancel Info (CONTRAST GIVEN -- Rx MONITORING) 1 each PRN DAILY PRN MC SEE COMMENTS; Start 06/22/19 at 08:15; Stop 06/24/19 at 08:14; Status DC Cefoxitin Sodium (Mefoxin) 2 gm 1X PREOP IVP ; Start 06/22/19 at 11:00; Stop 06/22/19 at 11:16; Status DC Cefoxitin Sodium (Mefoxin) 2 gm 1X PREOP ONCE IVP Last administered on 06/22/19at 11:37; Start 06/22/19 at 11:30; Stop 06/22/19 at 11:31; Status DC Rocuronium [place] (Zemuron) 50 mg STK-MED ONCE .ROUTE ; Start 06/22/19 at 11:42; Stop 06/22/19 at 11:42; Status DC Propofol 20 ml @ As Directed STK-MED ONCE IV ; Start 06/22/19 at 11:42; Stop 06/22/19 at 11:43; Status DC Dexamethasone Sodium Phosphate (Decadron) 4 mg STK-MED ONCE .ROUTE ; Start 06/22/19 at 11:45; Stop 06/22/19 at 11:45; Status DC Ondansetron HCl (Zofran) 4 mg STK-MED ONCE .ROUTE ; Start 06/22/19 at 11:45; Stop 06/22/19 at 11:45; Status DC Potassium Phosphate 13.6 mmol/Magnesium Sulfate 5 meq/ Calcium Gluconate 20 meq/ Multivitamins 10 ml/Chromium/ Copper/Manganese/ Seleni/Zn 0.5 ml/ Total Parenteral Nutrition/Amino Acids/Dextrose/ Fat Emulsion Intravenous 1,920 ml @ 80 mls/hr TPN CONT IV Last administered on 06/22/19at 22:14; Start 06/22/19 at 22:00; Stop 06/23/19 at 21:59; Status DC Rocuronium [place] (Zemuron) 100 mg STK-MED ONCE .ROUTE ; Start 06/22/19 at 13:05; Stop 06/22/19 at 13:06; Status DC Cellulose (Surgicel Hemostat 4x8) 1 each STK-MED ONCE .ROUTE Last administered on 06/22/19at 12:46; Start 06/22/19 at 13:14; Stop 06/22/19 at 13:14; Status DC Albumin Human 500 ml @ As Directed STK-MED ONCE IV ; Start 06/22/19 at 13:25; Stop 06/22/19 at 13:25; Status DC Sevoflurane (Ultane) 90 ml STK-MED ONCE IH ; Start 06/22/19 at 13:53; Stop 06/22/19 at 13:53; Status DC Cellulose (Surgicel Hemostat 4x8) 1 each STK-MED ONCE TP Last administered on 06/22/19at 12:46; Start 06/22/19 at 12:46; Stop 06/22/19 at 14:25; Status DC Cellulose (Surgicel Hemostat 4x8) 1 each STK-MED ONCE TP Last administered on 06/22/19at 12:46; Start 06/22/19 at 12:46; Stop 06/22/19 at 14:25; Status DC Rocuronium [place] (Zemuron) 50 mg STK-MED ONCE .ROUTE ; Start 06/22/19 at 14:52; Stop 06/22/19 at 14:52; Status DC Vecuronium [place] 50 mg/ Miscellaneous 50 ml @ 4.925 mls/ hr CONT PRN IV SEE PROTOCOL Last administered on 06/25/19at 05:19; Start 06/22/19 at 15:00 Enoxaparin Sodium (Lovenox 40mg Syringe) 40 mg Q24H SQ Last administered on 07/05/19at 06:08; Start 06/23/19 at 06:00 Sodium Chloride (Normal Saline Flush) 3 ml QSHIFT PRN IV AFTER MEDS AND BLOOD DRAWS; Start 06/22/19 at 15:45 Ringer's Solution 1,000 ml @ 100 mls/hr Q10H IV Last administered on 06/23/19at 22:06; Start 06/22/19 at 15:39; Stop 06/24/19 at 17:46; Status DC Naloxone HCl (Narcan) 0.4 mg PRN Q2MIN PRN IV SEE INSTRUCTIONS; Start 06/22/19 at 15:45 Sodium Chloride 1,000 ml @ 25 mls/hr Q24H IV Last administered on 07/02/19at 15:39; Start 06/22/19 at 15:39 Morphine Sulfate (Morphine Sulfate) 1 mg PRN Q1HR PRN IV MODERATE PAIN; Start 06/22/19 at 15:45 Ondansetron HCl (Zofran) 4 mg PRN Q6HRS PRN IVP NAUESA, 1ST CHOICE; Start 06/22/19 at 15:45 Calcium Gluconate (Calcium Gluconate) 1,000 mg 1X ONCE IVP ; Start 06/22/19 at 19:45; Stop 06/22/19 at 20:15; Status DC Sodium Bicarbonate (Sodium Bicarb Adult 8.4% Syr) 50 meq 1X ONCE IV Last administered on 06/22/19at 20:37; Start 06/22/19 at 19:45; Stop 06/22/19 at 19:57; Status DC Dextrose (Dextrose 50%-Water Syringe) 25 gm 1X ONCE IV Last administered on 06/22/19at 20:37; Start 06/22/19 at 19:45; Stop 06/22/19 at 19:57; Status DC Insulin Human Regular (HumuLIN R VIAL) 10 unit 1X ONCE IV Last administered on 06/22/19at 20:45; Start 06/22/19 at 19:45; Stop 06/22/19 at 19:57; Status DC Calcium Gluconate 1000 mg/Sodium Chloride 110 ml @ 220 mls/hr 1X ONCE IV Last administered on 06/22/19at 20:36; Start 06/22/19 at 20:15; Stop 06/22/19 at 20:44; Status DC Insulin Human Regular 100 unit/ Sodium Chloride 101 ml @ 0 mls/hr CONT PRN IV SEE I/O RECORD Last administered on 07/02/19at 18:55; Start 06/23/19 at 12:15; Stop 07/03/19 at 10:39; Status DC Sodium Phosphate 10 mmol/Magnesium Sulfate 5 meq/ Calcium Gluconate 15 meq/ Multivitamins 10 ml/Chromium/ Copper/Manganese/ Seleni/Zn 0.5 ml/ Insulin Human Regular 10 unit/ Total Parenteral Nutrition/Amino Acids/Dextrose/ Fat Emulsion Intravenous 1,920 ml @ 80 mls/hr TPN CONT IV Last administered on 06/23/19at 22:20; Start 06/23/19 at 22:00; Stop 06/24/19 at 21:59; Status DC Fentanyl Citrate 55 ml @ 1.98 mls/hr CONT PRN IV SEE PROTOCOL Last administered on 07/04/19at 14:39; Start 06/24/19 at 11:45 Sodium Phosphate 10 mmol/Magnesium Sulfate 5 meq/ Calcium Gluconate 15 meq/ Multivitamins 10 ml/Chromium/ Copper/Manganese/ Seleni/Zn 0.5 ml/ Total Parenteral Nutrition/Amino Acids/Dextrose/ Fat Emulsion Intravenous 1,920 ml @ 80 mls/hr TPN CONT IV Last administered on 06/24/19at 22:26; Start 06/24/19 at 22:00; Stop 06/25/19 at 21:59; Status DC Sodium Phosphate 10 mmol/Magnesium Sulfate 5 meq/ Calcium Gluconate 15 meq/ Multivitamins 10 ml/Chromium/ Copper/Manganese/ Seleni/Zn 0.5 ml/ Total Parenteral Nutrition/Amino Acids/Dextrose/ Fat Emulsion Intravenous 1,920 ml @ 80 mls/hr TPN CONT IV Last administered on 06/25/19at 22:27; Start 06/25/19 at 22:00; Stop 06/26/19 at 21:59; Status DC Sodium Phosphate 10 mmol/Magnesium Sulfate 5 meq/ Calcium Gluconate 15 meq/ Multivitamins 10 ml/Chromium/ Copper/Manganese/ Seleni/Zn 0.5 ml/ Total Parenteral Nutrition/Amino Acids/Dextrose/ Fat Emulsion Intravenous 1,920 ml @ 80 mls/hr TPN CONT IV Last administered on 06/26/19at 21:57; Start 06/26/19 at 22:00; Stop 06/27/19 at 21:59; Status DC Furosemide (Lasix) 60 mg 1X ONCE IVP Last administered on 06/26/19at 12:22; Start 06/26/19 at 12:30; Stop 06/26/19 at 12:31; Status DC Dexmedetomidine HCl 400 mcg/ Sodium Chloride 100 ml @ 0 mls/hr CONT PRN IV ANXIETY / AGITATION Last administered on 07/05/19at 07:28; Start 06/26/19 at 19:00 Sodium Chloride 500 ml @ 500 mls/hr 1X PRN PRN IV SEE COMMENTS; Start 06/26/19 at 19:00 Atropine Sulfate (ATROPINE 0.5mg SYRINGE) 0.5 mg PRN Q5MIN PRN IV SEE COMMENTS; Start 06/26/19 at 19:00 Sodium Bicarbonate (Sodium Bicarb Adult 8.4% Syr) 50 meq 1X ONCE IV ; Start 06/26/19 at 19:30; Stop 06/26/19 at 19:23; Status DC Furosemide (Lasix) 40 mg DAILY IVP Last administered on 07/05/19at 08:45; Start 06/27/19 at 12:00 Propofol 100 ml @ As Directed STK-MED ONCE IV ; Start 06/27/19 at 11:51; Stop 06/27/19 at 11:51; Status DC Propofol 100 ml @ 6.588 mls/ hr CONT PRN IV SEE I/O RECORD Last administered on 07/05/19at 07:59; Start 06/27/19 at 12:00 Sodium Phosphate 10 mmol/Magnesium Sulfate 5 meq/ Calcium Gluconate 15 meq/ Multivitamins 10 ml/Chromium/ Copper/Manganese/ Seleni/Zn 0.5 ml/ Total Parenteral Nutrition/Amino Acids/Dextrose/ Fat Emulsion Intravenous 1,920 ml @ 80 mls/hr TPN CONT IV ; Start 06/27/19 at 22:00; Stop 06/27/19 at 12:55; S tatus DC Potassium Phosphate 10 mmol/ Magnesium Sulfate 5 meq/Calcium Gluconate 15 meq/ Multivitamins 10 ml/Chromium/ Copper/Manganese/ Seleni/Zn 0.5 ml/ Total Parenteral Nutrition/Amino Acids/Dextrose/ Fat Emulsion Intravenous 1,920 ml @ 80 mls/hr TPN CONT IV Last administered on 06/27/19at 21:38; Start 06/27/19 at 22:00; Stop 06/28/19 at 21:59; Status DC Potassium Chloride/Water 100 ml @ 50 mls/hr 1X ONCE IV Last administered on 06/28/19at 15:00; Start 06/28/19 at 15:00; Stop 06/28/19 at 16:59; Status DC Potassium Phosphate 10 mmol/ Magnesium Sulfate 5 meq/Calcium Gluconate 15 meq/ Multivitamins 10 ml/Chromium/ Copper/Manganese/ Seleni/Zn 0.5 ml/ Potassium Acetate 20 meq/Total Parenteral Nutrition/Amino Acids/Dextrose/ Fat Emulsion Intravenous 1,920 ml @ 80 mls/hr TPN CONT IV Last administered on 06/28/19at 22:14; Start 06/28/19 at 22:00; Stop 06/29/19 at 21:59; Status DC Potassium Chloride/Water 100 ml @ 50 mls/hr 1X ONCE IV Last administered on 06/29/19at 08:57; Start 06/29/19 at 09:00; Stop 06/29/19 at 10:59; Status DC Potassium Phosphate 10 mmol/ Magnesium Sulfate 5 meq/Calcium Gluconate 15 meq/ Multivitamins 10 ml/Chromium/ Copper/Manganese/ Seleni/Zn 0.5 ml/ Potassium Acetate 20 meq/Total Parenteral Nutrition/Amino Acids/Dextrose/ Fat Emulsion Intravenous 1,920 ml @ 80 mls/hr TPN CONT IV Last administered on 06/29/19at 21:32; Start 06/29/19 at 22:00; Stop 06/30/19 at 21:59; Status DC Potassium Phosphate 10 mmol/ Magnesium Sulfate 5 meq/Calcium Gluconate 15 meq/ Multivitamins 10 ml/Chromium/ Copper/Manganese/ Seleni/Zn 0.5 ml/ Potassium Acetate 20 meq/Total Parenteral Nutrition/Amino Acids/Dextrose 1,920 ml @ 80 m ls/hr TPN CONT IV Last administered on 06/30/19at 21:38; Start 06/30/19 at 22:00; Stop 07/01/19 at 21:59; Status DC Potassium Phosphate 10 mmol/ Magnesium Sulfate 5 meq/Calcium Gluconate 15 meq/ Multivitamins 10 ml/Chromium/ Copper/Manganese/ Seleni/Zn 0.5 ml/ Potassium Acetate 10 meq/Total Parenteral Nutrition/Amino Acids/Dextrose 1,920 ml @ 80 mls/hr TPN CONT IV Last administered on 07/01/19at 21:30; Start 07/01/19 at 22:00; Stop 07/02/19 at 21:59; Status DC Potassium Phosphate 10 mmol/ Magnesium Sulfate 5 meq/Calcium Gluconate 15 meq/ Multivitamins 10 ml/Chromium/ Copper/Manganese/ Seleni/Zn 0.5 ml/ Potassium Acetate 10 meq/Total Parenteral Nutrition/Amino Acids/Dextrose 1,920 ml @ 80 mls/hr TPN CONT IV Last administered on 07/02/19at 21:36; Start 07/02/19 at 22:00; Stop 07/03/19 at 21:59; Status DC Daptomycin 520 mg/ Sodium Chloride 50 ml @ 100 mls/hr Q24H IV Last admin istered on 07/04/19at 08:55; Start 07/03/19 at 10:00 Insulin Glargine (Lantus Syringe) 30 unit BID SQ Last administered on 07/05/19at 08:56; Start 07/03/19 at 11:00 Insulin Human Lispro (HumaLOG) 0-9 UNITS Q6HRS SQ Last administered on 07/05/19at 06:14; Start 07/03/19 at 12:00 Dextrose (Dextrose 50%-Water Syringe) 12.5 gm PRN Q15MIN PRN IV SEE COMMENTS; Start 07/03/19 at 10:30 Potassium Acetate 10 meq/Potassium Phosphate 10 mmol/ Magnesium Sulfate 5 meq/Calcium Gluconate 15 meq/ Multivitamins 10 ml/Chromium/ Copper/Manganese/ Seleni/Zn 0.5 ml/ Total Parenteral Nutrition/Amino Acids/Dextrose 1,920 ml @ 80 mls/hr TPN CONT IV Last administered on 07/03/19at 21:26; Start 07/03/19 at 22:00; Stop 07/04/19 at 21:59; Status DC Linezolid/Dextrose 300 ml @ 300 mls/hr Q12HR IV Last administered on 07/05/19at 08:52; Start 07/04/19 at 09:00 Potassium Acetate 10 meq/Potassium Phosphate 10 mmol/ Magnesium Sulfate 5 meq/Calcium Gluconate 15 meq/ Multivitamins 10 ml/Chromium/ Copper/Manganese/ Seleni/Zn 0.5 ml/ Total Parenteral Nutrition/Amino Acids/Dextrose 1,920 ml @ 80 mls/hr TPN CONT IV Last administered on 07/04/19at 21:13; Start 07/04/19 at 22:00; Stop 07/05/19 at 21:59 Lidocaine HCl (Buffered Lidocaine 1%) 3 ml STK-MED ONCE .ROUTE ; Start 07/04/19 at 14:23; Stop 07/04/19 at 14:23; Status DC Iohexol (Omnipaque 240 Mg/ml) 50 ml STK-MED ONCE .ROUTE ; Start 07/04/19 at 14:23; Stop 07/04/19 at 14:24; Status DC Lidocaine HCl (Buffered Lidocaine 1%) 3 ml 1X ONCE INJ Last administered on 07/04/19at 15:34; Start 07/04/19 at 14:30; Stop 07/04/19 at 14:31; Status DC Iohexol (Omnipaque 240 Mg/ml) 50 ml 1X ONCE IJ Last administered on 07/04/19at 15:33; Start 07/04/19 at 14:30; Stop 07/04/19 at 14:31; Status DC Info (CONTRAST GIVEN -- Rx MONITORING) 1 each PRN DAILY PRN MC SEE COMMENTS; Start 07/04/19 at 14:30; Stop 07/06/19 at 14:29 Active Scripts Active Vitals/I & O Vital Sign - Last 24 Hours 07/04/19 07/04/19 07/04/19 07/04/19 10:00 11:00 12:00 12:00 Temp 99.3 99.3 Pulse 80 80 80 Resp 22 26 21 B/P (MAP) 103/66 (78) 86/57 (67) 104/66 (79) Pulse Ox 97 100 96 O2 Delivery Ventilator Ventilator Ventilator Mechanical Ventilator 07/04/19 07/04/19 07/04/19 07/04/19 12:49 13:00 14:00 14:39 Temp 98.6 98.2 98.6 98.2 Pulse 80 80 Resp 20 20 B/P (MAP) 104/62 (76) 113/69 (84) Pulse Ox 99 100 99 99 O2 Delivery Ventilator Ventilator Ventilator O2 Flow Rate 3.0 07/04/19 07/04/19 07/04/19 07/04/19 15:36 15:58 16:00 16:00 Temp 99.7 99.7 Pulse 91 80 Resp 23 B/P (MAP) 119/78 (92) 119/77 (91) Pulse Ox 99 100 99 O2 Delivery Ventilator Ventilator Ventilator Mechanical Ventilator 07/04/19 07/04/19 07/04/19 07/04/19 18:00 18:11 19:00 20:00 Temp 99.3 99.9 99.3 99.9 Pulse 80 80 Resp 22 B/P (MAP) 99/59 (72) 99/60 (73) Pulse Ox 100 100 100 O2 Delivery Ventilator Ventilator Ventilator Mechanical Ventilator 07/04/19 07/04/19 07/04/19 07/04/19 20:00 20:42 21:00 22:00 Temp 100.2 100.6 100.9 100.2 100.6 100.9 Pulse 81 90 90 Resp B/P (MAP) 101/61 (74) 98/58 (71) 109/64 (79) Pulse Ox 100 100 100 100 O2 Delivery Ventilator Ventilator Ventilator Ventilator 07/04/19 07/04/19 07/05/19 07/05/19 23:00 23:51 00:00 00:00 Temp 101.7 102.0 101.7 102.0 Pulse 96 94 Resp B/P (MAP) 109/59 (76) 126/73 (90) Pulse Ox 100 99 99 O2 Delivery Ventilator Ventilator Mechanical Ventilator Ventilator 07/05/19 07/05/19 07/05/19 07/05/19 01:00 01:39 02:00 03:00 Temp 102.0 101.7 101.5 102.0 101.7 101.5 Pulse 99 92 87 Resp 20 B/P (MAP) 114/67 (83) 112/70 (84) 112/67 (82) Pulse Ox 99 99 99 99 O2 Delivery Ventilator Ventilator Ventilator Ventilator 07/05/19 07/05/19 07/05/19 07/05/19 04:00 04:00 04:55 05:00 Temp 101.1 100.9 101.1 100.9 Pulse 85 83 Resp 20 B/P (MAP) 109/63 (78) 101/63 (76) Pulse Ox 100 99 100 O2 Delivery Mechanical Ventilator Ventilator Ventilator Ventilator 07/05/19 07/05/19 07/05/19 07/05/19 06:00 07:00 07:40 08:00 Temp 100.9 100.9 100.8 100.9 100.9 100.8 Pulse 95 84 86 Resp 20 19 20 B/P (MAP) 98/57 (71) 107/66 (80) 102/59 (73) Pulse Ox 100 99 100 99 O2 Delivery Ventilator Ventilator Ventilator Ventilator 07/05/19 07/05/19 07/05/19 08:00 09:00 09:03 Temp 100.6 100.6 Pulse 87 Resp 20 B/P (MAP) 110/63 (79) Pulse Ox 99 99 O2 Delivery Mechanical Ventilator Ventilator Ventilator Intake and Output 07/04/19 07/04/19 07/05/19 15:00 23:00 07:00 Intake Total 468.91 ml 1542 ml 1667 ml Output Total 1360 ml 1550 ml 845 ml Balance -891.09 ml -8 ml 822 ml Hemodynamically unstable?: No Is patient in severe pain?: No Is NPO status required?: Yes JUAN ANTONIO OWUSU MD Jul 05, 2019 09:25
[2019-07-05] MEDS: DAPTOmycin (GENERIC) IVPB 520 MG in IV NORMAL SALINE 50ML 50 ML IV SCH (09:31)
--- NOTE | 2019-07-05 10:21 | PDOC ---
Infectious Disease Note Subjective Subjective Ongoing fevers Tmax 102 core Sedated but opens eyes Traced/vent, FiO2 40% TPN Vital Sign Vital Signs Vital Signs Date Time Temp Pulse Resp B/P (MAP) Pulse Ox O2 Delivery O2 Flow Rate FiO2 07/05/19 09:03 99 Ventilator 07/05/19 09:00 100.6 87 20 110/63 (79) 100.6 07/04/19 14:39 3.0 Physical Exam PHYSICAL EXAM GENERAL: Sedated, trached/vent - opened eyes HEENT: Pupils equal reactive NECK: Trach/vent LUNGS: Diminished aeration bases HEART: S1, S2, regular, no murmurs. ABDOMEN: Distended, fairly tight, bowel sounds quiet, drains x5, wound vac in place : Lobato in place 2 plus edema EXTREMITIES: 1+ edema, no cyanosis. SCDs bilaterally SKIN: Warm, dry. 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 CARTON STAPLER: Sedated RT PICC line clean ( 07/01) Labs Lab Laboratory Tests Test 07/04/19 14:03 07/04/19 18:38 07/04/19 21:08 07/04/19 23:53 Glucose (Fingerstick) 228 mg/dL (70-99) 220 mg/dL (70-99) 184 mg/dL (70-99) 213 mg/dL (70-99) Test 07/05/19 06:10 07/05/19 07:30 07/05/19 08:43 Glucose (Fingerstick) 154 mg/dL (70-99) 139 mg/dL (70-99) O2 Saturation 97 % (92-99) Arterial Blood pH 7.42 (7.35-7.45) Arterial Blood pCO2 at Patient Temp 41 mmHg (35-46) Arterial Blood pO2 at Patient Temp 98 mmHg (75-108) Arterial Blood HCO3 26 mmol/L (21-28) Arterial Blood Base Excess 1 mmol/L (-3-3) FiO2 40% CXR, 07/04 IMPRESSION: Stable bibasilar pulmonary infiltrates and small left pleural effusion. CT A/P IMPRESSION: 1. Redemonstrated sequela of necrotic pancreatitis. As before there is extensive mesenteric edema but the volume of free abdominopelvic fluid has decreased. Edematous enlargement of the pancreas has slightly decreased. A fluid collection along the undersurface of the stomach has decreased in size, as detailed above. A loculated appearing fluid collection within the mid abdomen anterior to the IVC and aorta (image 55 series 4) measures similar to the prior. Ill-defined area of hypoattenuation involving the mid pancreatic body is slightly more conspicuous from the prior (image 37 series 4). It is uncertain if this represents evolving parenchymal necrosis or a developing fluid collection as assessment is limited without intravenous contrast. No air and fluid containing collection seen to suggest an abscess but note is made that the sterility of the aforementioned fluid collections is indeterminate by the imaging appearance alone. 2. Extensive reactive inflammatory changes of the abdominopelvic organs. No findings of bowel obstruction. 3. A gastrostomy tube has been placed in the interim. The tube tip is not within the stomach and is seen at the distal end of the surgical tract just deep to the ventral body wall musculature - sagittal images 35 and 36 series 9. 4. Three abdominal drains. No discrete fluid collection surrounding the tips of these drains. Cholecystostomy tube, ET tube, enteric tube, Lobato and right PICC are appropriately positioned. 5. Partial collapse of the left more so than right lower lobes. Moderate-sized left pleural effusion with overlying atelectasis. No infiltrate typical of an organizing pneumonia identified. Micro /. BLOOD CULTURE Preliminary NO GROWTH AFTER 1 DAYS Objective Assessment Fever cult neg so far Leukocytosis Gallbladder stone pancreatitis s/p expl lap, pancreatic necrosectomy, cholecystostomy tube placement, G-tube placement with jejunal extension, 3/ Intra-abd fluid collections Sepsis from GI - cult neg Acute Resp failure - s/p trach 3 Lactic acidosis. Acute kidney injury previously requiring dialysis - now with improved UOP, HDC now out Metabolic acidosis. Hypocalcemia Right arm swelling, + occlusive thrombosis within the cephalic vein, no DVT on US Plan Plan of Care Continue merrem, micafungin (06/19) cont daptomycin ( 07/02); restart Zyvox (07/03) ( better lung penetration) Pancultures (07/03) neg so far Maintain aspiration precaution. Gen surgery following D/w nursing Critically ill IMPRESSION: 1. Redemonstrated sequela of necrotic pancreatitis. As before there is extensive mesenteric edema but the volume of free abdominopelvic fluid has decreased. Edematous enlargement of the pancreas has slightly decreased. A fluid collection along the undersurface of the stomach has decreased in size, as detailed above. A loculated appearing fluid collection within the mid abdomen anterior to the IVC and aorta (image 55 series 4) measures similar to the prior. Ill-defined area of hypoattenuation involving the mid pancreatic body is slightly more conspicuous from the prior (image 37 series 4). It is uncertain if this represents evolving parenchymal necrosis or a developing fluid collection as assessment is limited without intravenous contrast. No air and fluid containing collection seen to suggest an abscess but note is made that the sterility of the aforementioned fluid collections is indeterminate by the imaging appearance alone. 2. Extensive reactive inflammatory changes of the abdominopelvic organs. No findings of bowel obstruction. 3. A gastrostomy tube has been placed in the interim. The tube tip is not within the stomach and is seen at the distal end of the surgical tract just deep to the ventral body wall musculature - sagittal images 35 and 36 series 9. 4. Three abdominal drains. No discrete fluid collection surrounding the tips of these drains. Cholecystostomy tube, ET tube, enteric tube, Lobato and right PICC are appropriately positioned. 5. Partial collapse of the left more so than right lower lobes. Moderate-sized left pleural effusion with overlying atelectasis. No infiltrate typical of an organizing pneumonia identified. Fever ? pancreatitis/abd distension/pleural effusion/occlusive clot in cephalic await pulm eval. ? if fluid can be drawn off left side based on CT gastrostomy tube repositioned by IR 07/03 per nursing - d/w Dr. Mcdonough today D/w - and nursing Attending Co-Sign Attending Co-Sign The patient was seen and interviewed as well as examined at the bedside. The chart was reviewed. The case was discussed. Agree with the plan of care. TANVI GORE APRN Jul 05, 2019 10:21 LE CROWLEY MD Jul 05, 2019 13:57
--- NOTE | 2019-07-05 11:18 | PDOC ---
SURGICAL PROGRESS NOTE Subjective on vent sedated Vital Signs Vital Signs Date Time Temp Pulse Resp B/P (MAP) Pulse Ox O2 Delivery O2 Flow Rate FiO2 07/05/19 11:00 100.6 88 23 103/54 (70) 99 Ventilator 100.6 07/04/19 14:39 3.0 temp trending down slowly I&O Intake and Output 07/05/19 07:00 Intake Total 3677.91 ml Output Total 3755 ml Balance -77.09 ml IV Total 3677.91 ml Output Urine Total 3395 ml Gastric Drainage Total 75 ml Drainage Total 285 ml brisk diuresis (1000cc) after 40 mg lasix Abdomen: Other (drains in place) Labs Laboratory Tests Test 07/03/19 12:09 07/03/19 13:24 07/03/19 21:41 07/04/19 00:47 Glucose (Fingerstick) 167 mg/dL (70-99) 118 mg/dL (70-99) 127 mg/dL (70-99) 180 mg/dL (70-99) Test 07/04/19 06:16 07/04/19 08:00 07/04/19 08:20 07/04/19 08:59 Glucose (Fingerstick) 161 mg/dL (70-99) 170 mg/dL (70-99) O2 Saturation 99 % (92-99) Arterial Blood pH 7.43 (7.35-7.45) Arterial Blood pCO2 at Patient Temp 26 mmHg (35-46) Arterial Blood pO2 at Patient Temp 142 mmHg (75-108) Arterial Blood HCO3 17 mmol/L (21-28) Arterial Blood Base Excess -6 mmol/L (-3-3) FiO2 40 White Blood Count 14.0 x10^3/uL (4.0-11.0) Red Blood Count 2.66 x10^6/uL (4.30-5.70) Hemoglobin 7.6 g/dL (13.0-17.5) Hematocrit 23.7 % (39.0-53.0) Mean Corpuscular Volume 89 fL (79-100) Mean Corpuscular Hemoglobin 29 pg (25-35) Mean Corpuscular Hemoglobin Concent 32 g/dL (31-37) Red Cell Distribution Width 15.0 % (11.5-14.5) Platelet Count 428 x10^3/uL (140-400) Neutrophils (%) (Auto) 78 % (31-73) Lymphocytes (%) (Auto) 11 % (24-48) Monocytes (%) (Auto) 10 % (0-9) Eosinophils (%) (Auto) 0 % (0-3) Basophils (%) (Auto) 1 % (0-3) Neutrophils # (Auto) 10.9 x10^3/uL (1.8-7.7) Lymphocytes # (Auto) 1.6 x10^3/uL (1.0-4.8) Monocytes # (Auto) 1.4 x10^3/uL (0.0-1.1) Eosinophils # (Auto) 0.0 x10^3/uL (0.0-0.7) Basophils # (Auto) 0.1 x10^3/uL (0.0-0.2) Urine Collection Type Unknown Urine Color Demi Urine Clarity Clear Urine pH 6.0 (<5.0-8.0) Urine Specific [place] 1.020 (1.000-1.030) Urine Protein Negative mg/dL (NEG-TRACE) Urine Glucose (UA) Negative mg/dL (NEG) Urine Ketones (Stick) Negative mg/dL (NEG) Urine Blood Negative (NEG) Urine Nitrite Negative (NEG) Urine Bilirubin Moderate (NEG) Urine Urobilinogen Dipstick 1.0 mg/dL (0.2 mg/dL) Urine Leukocyte Esterase Negative (NEG) Urine RBC 0 /HPF (0-2) Urine WBC Rare /HPF (0-4) Urine Squamous Epithelial Cells Occ /LPF Urine Bacteria Few /HPF (0-FEW) Sodium Level 148 mmol/L (136-145) Potassium Level 3.7 mmol/L (3.5-5.1) Chloride Level 110 mmol/L (98-107) Carbon Dioxide Level 29 mmol/L (21-32) Anion Gap 9 (6-14) Blood Urea Nitrogen 50 mg/dL (8-26) Creatinine 1.1 mg/dL (0.7-1.3) Estimated GFR (Cockcroft-Gault) 86.1 Glucose Level 164 mg/dL (70-99) Calcium Level 8.2 mg/dL (8.5-10.1) Test 07/04/19 14:03 07/04/19 18:38 07/04/19 21:08 07/04/19 23:53 Glucose (Fingerstick) 228 mg/dL (70-99) 220 mg/dL (70-99) 184 mg/dL (70-99) 213 mg/dL (70-99) Test 07/05/19 06:10 07/05/19 07:30 07/05/19 08:43 Glucose (Fingerstick) 154 mg/dL (70-99) 139 mg/dL (70-99) O2 Saturation 97 % (92-99) Arterial Blood pH 7.42 (7.35-7.45) Arterial Blood pCO2 at Patient Temp 41 mmHg (35-46) Arterial Blood pO2 at Patient Temp 98 mmHg (75-108) Arterial Blood HCO3 26 mmol/L (21-28) Arterial Blood Base Excess 1 mmol/L (-3-3) FiO2 40% Laboratory Tests Test 07/04/19 14:03 07/04/19 18:38 07/04/19 21:08 07/04/19 23:53 Glucose (Fingerstick) 228 mg/dL (70-99) 220 mg/dL (70-99) 184 mg/dL (70-99) 213 mg/dL (70-99) Test 07/05/19 06:10 07/05/19 07:30 07/05/19 08:43 Glucose (Fingerstick) 154 mg/dL (70-99) 139 mg/dL (70-99) O2 Saturation 97 % (92-99) Arterial Blood pH 7.42 (7.35-7.45) Arterial Blood pCO2 at Patient Temp 41 mmHg (35-46) Arterial Blood pO2 at Patient Temp 98 mmHg (75-108) Arterial Blood HCO3 26 mmol/L (21-28) Arterial Blood Base Excess 1 mmol/L (-3-3) FiO2 40% Problem List Problems Medical Problems: (1) Acute pancreatitis Status: Acute (2) Nausea & vomiting Status: Acute Assessment/Plan s/p pancreatic necrosectomy continue supportive care follow WILL Gurrola MD Jul 05, 2019 11:17
--- NOTE | 2019-07-05 12:34 | PDOC ---
G I PROGRESS NOTE Subjective Less sedated. Does not orient. Physical Exam Lungs clear anteriorly. RRR Abdomen firm. No bowel sounds. Review of Relevant I have reviewed the following items alexandra (where applicable) has been applied. Labs Laboratory Tests Test 07/03/19 13:24 07/03/19 21:41 07/04/19 00:47 07/04/19 06:16 Glucose (Fingerstick) 118 mg/dL (70-99) 127 mg/dL (70-99) 180 mg/dL (70-99) 161 mg/dL (70-99) Test 07/04/19 08:00 07/04/19 08:20 07/04/19 08:59 07/04/19 14:03 O2 Saturation 99 % (92-99) Arterial Blood pH 7.43 (7.35-7.45) Arterial Blood pCO2 at Patient Temp 26 mmHg (35-46) Arterial Blood pO2 at Patient Temp 142 mmHg (75-108) Arterial Blood HCO3 17 mmol/L (21-28) Arterial Blood Base Excess -6 mmol/L (-3-3) FiO2 40 White Blood Count 14.0 x10^3/uL (4.0-11.0) Red Blood Count 2.66 x10^6/uL (4.30-5.70) Hemoglobin 7.6 g/dL (13.0-17.5) Hematocrit 23.7 % (39.0-53.0) Mean Corpuscular Volume 89 fL (79-100) Mean Corpuscular Hemoglobin 29 pg (25-35) Mean Corpuscular Hemoglobin Concent 32 g/dL (31-37) Red Cell Distribution Width 15.0 % (11.5-14.5) Platelet Count 428 x10^3/uL (140-400) Neutrophils (%) (Auto) 78 % (31-73) Lymphocytes (%) (Auto) 11 % (24-48) Monocytes (%) (Auto) 10 % (0-9) Eosinophils (%) (Auto) 0 % (0-3) Basophils (%) (Auto) 1 % (0-3) Neutrophils # (Auto) 10.9 x10^3/uL (1.8-7.7) Lymphocytes # (Auto) 1.6 x10^3/uL (1.0-4.8) Monocytes # (Auto) 1.4 x10^3/uL (0.0-1.1) Eosinophils # (Auto) 0.0 x10^3/uL (0.0-0.7) Basophils # (Auto) 0.1 x10^3/uL (0.0-0.2) Urine Collection Type Unknown Urine Color Demi Urine Clarity Clear Urine pH 6.0 (<5.0-8.0) Urine Specific [place] 1.020 (1.000-1.030) Urine Protein Negative mg/dL (NEG-TRACE) Urine Glucose (UA) Negative mg/dL (NEG) Urine Ketones (Stick) Negative mg/dL (NEG) Urine Blood Negative (NEG) Urine Nitrite Negative (NEG) Urine Bilirubin Moderate (NEG) Urine Urobilinogen Dipstick 1.0 mg/dL (0.2 mg/dL) Urine Leukocyte Esterase Negative (NEG) Urine RBC 0 /HPF (0-2) Urine WBC Rare /HPF (0-4) Urine Squamous Epithelial Cells Occ /LPF Urine Bacteria Few /HPF (0-FEW) Sodium Level 148 mmol/L (136-145) Potassium Level 3.7 mmol/L (3.5-5.1) Chloride Level 110 mmol/L (98-107) Carbon Dioxide Level 29 mmol/L (21-32) Anion Gap 9 (6-14) Blood Urea Nitrogen 50 mg/dL (8-26) Creatinine 1.1 mg/dL (0.7-1.3) Estimated GFR (Cockcroft-Gault) 86.1 Glucose Level 164 mg/dL (70-99) Calcium Level 8.2 mg/dL (8.5-10.1) Glucose (Fingerstick) 170 mg/dL (70-99) 228 mg/dL (70-99) Test 07/04/19 18:38 07/04/19 21:08 07/04/19 23:53 07/05/19 06:10 Glucose (Fingerstick) 220 mg/dL (70-99) 184 mg/dL (70-99) 213 mg/dL (70-99) 154 mg/dL (70-99) Test 07/05/19 07:30 07/05/19 08:43 07/05/19 12:01 O2 Saturation 97 % (92-99) Arterial Blood pH 7.42 (7.35-7.45) Arterial Blood pCO2 at Patient Temp 41 mmHg (35-46) Arterial Blood pO2 at Patient Temp 98 mmHg (75-108) Arterial Blood HCO3 26 mmol/L (21-28) Arterial Blood Base Excess 1 mmol/L (-3-3) FiO2 40% Glucose (Fingerstick) 139 mg/dL (70-99) 168 mg/dL (70-99) Laboratory Tests Test 07/04/19 14:03 07/04/19 18:38 07/04/19 21:08 07/04/19 23:53 Glucose (Fingerstick) 228 mg/dL (70-99) 220 mg/dL (70-99) 184 mg/dL (70-99) 213 mg/dL (70-99) Test 07/05/19 06:10 07/05/19 07:30 07/05/19 08:43 07/05/19 12:01 Glucose (Fingerstick) 154 mg/dL (70-99) 139 mg/dL (70-99) 168 mg/dL (70-99) O2 Saturation 97 % (92-99) Arterial Blood pH 7.42 (7.35-7.45) Arterial Blood pCO2 at Patient Temp 41 mmHg (35-46) Arterial Blood pO2 at Patient Temp 98 mmHg (75-108) Arterial Blood HCO3 26 mmol/L (21-28) Arterial Blood Base Excess 1 mmol/L (-3-3) FiO2 40% Microbiology 07/04/19 Blood Culture - Preliminary, Resulted NO GROWTH AFTER 1 DAY 06/23/19 - Final, Complete 06/23/19 - Final, Complete 06/23/19 - Final, Complete 06/23/19 Gram Stain Evaluation - Final, Complete 06/23/19 Sputum Culture - Final, Complete 06/23/19 Sputum Result 1 - Final, Complete 06/22/19 AFB Specimen Processing Tissue - Final, Resulted 06/22/19 Acid Fast Bacilli Culture, Resulted Pending 06/22/19 Gram Stain - Final, Resulted 06/22/19 Fungal Culture - Preliminary, Resulted 06/22/19 Fungal Culture Result 1 - Preliminary, Resulted Vitals/I & O Vital Sign - Last 24 Hours 07/04/19 07/04/19 07/04/19 07/04/19 12:49 13:00 14:00 14:39 Temp 98.6 98.2 98.6 98.2 Pulse 80 80 Resp 20 B/P (MAP) 104/62 (76) 113/69 (84) Pulse Ox 99 100 99 99 O2 Delivery Ventilator Ventilator Ventilator O2 Flow Rate 3.0 07/04/19 07/04/19 07/04/19 07/04/19 15:36 15:58 16:00 16:00 Temp 99.7 99.7 Pulse 91 80 Resp 23 B/P (MAP) 119/78 (92) 119/77 (91) Pulse Ox 99 100 99 O2 Delivery Ventilator Ventilator Ventilator Mechanical Ventilator 07/04/19 07/04/19 07/04/19 07/04/19 18:00 18:11 19:00 20:00 Temp 99.3 99.9 99.3 99.9 Pulse 80 80 Resp B/P (MAP) 99/59 (72) 99/60 (73) Pulse Ox 100 100 100 O2 Delivery Ventilator Ventilator Ventilator Mechanical Ventilator 07/04/19 07/04/19 07/04/19 07/04/19 20:00 20:42 21:00 22:00 Temp 100.2 100.6 100.9 100.2 100.6 100.9 Pulse 81 90 90 Resp B/P (MAP) 101/61 (74) 98/58 (71) 109/64 (79) Pulse Ox 100 100 100 100 O2 Delivery Ventilator Ventilator Ventilator Ventilator 07/04/19 07/04/19 07/05/19 07/05/19 23:00 23:51 00:00 00:00 Temp 101.7 102.0 101.7 102.0 Pulse 96 94 Resp B/P (MAP) 109/59 (76) 126/73 (90) Pulse Ox 100 99 99 O2 Delivery Ventilator Ventilator Mechanical Ventilator Ventilator 07/05/19 07/05/19 07/05/19 07/05/19 01:00 01:39 02:00 03:00 Temp 102.0 101.7 101.5 102.0 101.7 101.5 Pulse 99 92 87 Resp 20 B/P (MAP) 114/67 (83) 112/70 (84) 112/67 (82) Pulse Ox 99 99 99 99 O2 Delivery Ventilator Ventilator Ventilator Ventilator 07/05/19 07/05/19 07/05/19 07/05/19 04:00 04:00 04:55 05:00 Temp 101.1 100.9 101.1 100.9 Pulse 85 83 Resp 20 B/P (MAP) 109/63 (78) 101/63 (76) Pulse Ox 100 99 100 O2 Delivery Mechanical Ventilator Ventilator Ventilator Ventilator 07/05/19 07/05/19 07/05/19 07/05/19 06:00 07:00 07:40 08:00 Temp 100.9 100.9 100.8 100.9 100.9 100.8 Pulse 95 84 86 Resp B/P (MAP) 98/57 (71) 107/66 (80) 102/59 (73) Pulse Ox 100 99 100 99 O2 Delivery Ventilator Ventilator Ventilator Ventilator 07/05/19 07/05/19 07/05/19 07/05/19 08:00 09:00 09:03 10:00 Temp 100.6 100.4 100.6 100.4 Pulse 87 85 Resp B/P (MAP) 110/63 (79) 101/60 (74) Pulse Ox 99 99 99 O2 Delivery Mechanical Ventilator Ventilator Ventilator Ventilator 07/05/19 07/05/19 11:00 11:16 Temp 100.6 100.6 Pulse 88 Resp 23 B/P (MAP) 103/54 (70) Pulse Ox 99 99 O2 Delivery Ventilator Ventilator Intake and Output 07/04/19 07/04/19 07/05/19 15:00 23:00 07:00 Intake Total 468.91 ml 1542 ml 1667 ml Output Total 1360 ml 1550 ml 845 ml Balance -891.09 ml -8 ml [address] noted. Problem List Problems Medical Problems: (1) Acute pancreatitis Status: Acute (2) Nausea & vomiting Status: Acute Assessment Biliary pancreatitis, necrotizing, with MOSF, post-necrosectomy. Still quite ill and occasionally febrile. Plan of Care Note Continue support. Hemodynamically unstable?: No Is patient in severe pain?: No Is NPO status required?: Yes MARIA L CRUZ MD Jul 05, 2019 12:34
[2019-07-05] MEDS: TPN PER PHARMACY MC PRN (12:53)
[2019-07-05] MEDS: fentaNYL HIGH DOSE PCA 55 ML IV PRN (13:08)
[2019-07-05] MEDS: MIDAZOLAM HCL 50 MG in IV NORMAL SALINE 50ML 50 ML IV PRN ×3 (14:01→22:27)
[2019-07-05] MEDS: ACETAMINOPHEN 650 MG SUPP.RECT. PR PRN (14:30)
[2019-07-05] MEDS ORDERED: [UNRECOGNIZED DRUG - OTHER] IV SCH ×8 (22:00)
[2019-07-05] MEDS ORDERED: AMINO ACID IV SCH ×8 (22:00)
[2019-07-05] MEDS ORDERED: TOTAL PARENTERAL NUTRITION IV SCH ×8 (22:00)
[2019-07-05] MEDS ORDERED: DEXTROSE 70% IV SCH ×8 (22:00)
[2019-07-06] VITALS (25 sets, daily range): BP systolic 104–133; BP diastolic 59–80
[2019-07-06] MEDS: ACETAMINOPHEN 650 MG SUPP.RECT. PR PRN (00:18)
[2019-07-06] MEDS: MEROPENEM 500 MG in IV NORMAL SALINE 50ML 50 ML IV SCH ×3 (00:19→12:12)
[2019-07-06] MEDS: INSULIN LISPRO 300 UNITS/3 ML VIAL. SQ SCH ×4 (00:25→17:47)
[2019-07-06] MEDS: DEXMEDETOMIDINE 400 MCG in IV NORMAL SALINE 100ML 96 ML IV PRN ×9 (00:27→23:59)
[2019-07-06] MEDS: MIDAZOLAM HCL 50 MG in IV NORMAL SALINE 50ML 50 ML IV PRN ×4 (03:00→21:22)
[2019-07-06] MEDS: PANTOPRAZOLE IV PUSH 40 MG VIAL. IVP SCH ×2 (05:49→17:45)
[2019-07-06] MEDS: ENOXAPARIN 40 MG/0.4 ML SYRINGE. SQ SCH (05:49)
--- NOTE | 2019-07-06 06:20 | PDOC ---
PULMONARY PROGRESS NOTES Subjective on vent, sedated, on versed, precedex, fentanyl, small trach secretion, t max 101.8 Vitals Vital Signs Date Time Temp Pulse Resp B/P (MAP) Pulse Ox O2 Delivery O2 Flow Rate FiO2 07/06/19 05:44 98 Ventilator 07/06/19 05:00 101.3 92 20 123/72 (89) 101.3 Comments ros unable to obtain sedated on vent HEENT: Other (nc at perrl nose clear, neck, trach site ok, no lad, no thyromegaly) Lungs: Crackles Cardiovascular: S1, S2 Abdomen: Other (/distended/firm ) Extremities: No Edema Skin: Warm Labs Laboratory Tests Test 07/04/19 08:00 07/04/19 08:20 07/04/19 08:59 07/04/19 14:03 O2 Saturation 99 % (92-99) Arterial Blood pH 7.43 (7.35-7.45) Arterial Blood pCO2 at Patient Temp 26 mmHg (35-46) Arterial Blood pO2 at Patient Temp 142 mmHg (75-108) Arterial Blood HCO3 17 mmol/L (21-28) Arterial Blood Base Excess -6 mmol/L (-3-3) FiO2 40 White Blood Count 14.0 x10^3/uL (4.0-11.0) Red Blood Count 2.66 x10^6/uL (4.30-5.70) Hemoglobin 7.6 g/dL (13.0-17.5) Hematocrit 23.7 % (39.0-53.0) Mean Corpuscular Volume 89 fL (79-100) Mean Corpuscular Hemoglobin 29 pg (25-35) Mean Corpuscular Hemoglobin Concent 32 g/dL (31-37) Red Cell Distribution Width 15.0 % (11.5-14.5) Platelet Count 428 x10^3/uL (140-400) Neutrophils (%) (Auto) 78 % (31-73) Lymphocytes (%) (Auto) 11 % (24-48) Monocytes (%) (Auto) 10 % (0-9) Eosinophils (%) (Auto) 0 % (0-3) Basophils (%) (Auto) 1 % (0-3) Neutrophils # (Auto) 10.9 x10^3/uL (1.8-7.7) Lymphocytes # (Auto) 1.6 x10^3/uL (1.0-4.8) Monocytes # (Auto) 1.4 x10^3/uL (0.0-1.1) Eosinophils # (Auto) 0.0 x10^3/uL (0.0-0.7) Basophils # (Auto) 0.1 x10^3/uL (0.0-0.2) Urine Collection Type Unknown Urine Color Demi Urine Clarity Clear Urine pH 6.0 (<5.0-8.0) Urine Specific [place] 1.020 (1.000-1.030) Urine Protein Negative mg/dL (NEG-TRACE) Urine Glucose (UA) Negative mg/dL (NEG) Urine Ketones (Stick) Negative mg/dL (NEG) Urine Blood Negative (NEG) Urine Nitrite Negative (NEG) Urine Bilirubin Moderate (NEG) Urine Urobilinogen Dipstick 1.0 mg/dL (0.2 mg/dL) Urine Leukocyte Esterase Negative (NEG) Urine RBC 0 /HPF (0-2) Urine WBC Rare /HPF (0-4) Urine Squamous Epithelial Cells Occ /LPF Urine Bacteria Few /HPF (0-FEW) Sodium Level 148 mmol/L (136-145) Potassium Level 3.7 mmol/L (3.5-5.1) Chloride Level 110 mmol/L (98-107) Carbon Dioxide Level 29 mmol/L (21-32) Anion Gap 9 (6-14) Blood Urea Nitrogen 50 mg/dL (8-26) Creatinine 1.1 mg/dL (0.7-1.3) Estimated GFR (Cockcroft-Gault) 86.1 Glucose Level 164 mg/dL (70-99) Calcium Level 8.2 mg/dL (8.5-10.1) Glucose (Fingerstick) 170 mg/dL (70-99) 228 mg/dL (70-99) Test 07/04/19 18:38 07/04/19 21:08 07/04/19 23:53 07/05/19 06:10 Glucose (Fingerstick) 220 mg/dL (70-99) 184 mg/dL (70-99) 213 mg/dL (70-99) 154 mg/dL (70-99) Test 07/05/19 07:30 07/05/19 08:43 07/05/19 11:35 07/05/19 12:01 O2 Saturation 97 % (92-99) Arterial Blood pH 7.42 (7.35-7.45) Arterial Blood pCO2 at Patient Temp 41 mmHg (35-46) Arterial Blood pO2 at Patient Temp 98 mmHg (75-108) Arterial Blood HCO3 26 mmol/L (21-28) Arterial Blood Base Excess 1 mmol/L (-3-3) FiO2 40% Glucose (Fingerstick) 139 mg/dL (70-99) 168 mg/dL (70-99) Triglycerides Level 1170 mg/dL (0-150) Test 07/05/19 18:43 07/05/19 20:54 07/06/19 00:14 Glucose (Fingerstick) 141 mg/dL (70-99) 146 mg/dL (70-99) 173 mg/dL (70-99) Laboratory Tests Test 07/05/19 07:30 07/05/19 08:43 07/05/19 11:35 07/05/19 12:01 O2 Saturation 97 % (92-99) Arterial Blood pH 7.42 (7.35-7.45) Arterial Blood pCO2 at Patient Temp 41 mmHg (35-46) Arterial Blood pO2 at Patient Temp 98 mmHg (75-108) Arterial Blood HCO3 26 mmol/L (21-28) Arterial Blood Base Excess 1 mmol/L (-3-3) FiO2 40% Glucose (Fingerstick) 139 mg/dL (70-99) 168 mg/dL (70-99) Triglycerides Level 1170 mg/dL (0-150) Test 07/05/19 18:43 07/05/19 20:54 07/06/19 00:14 Glucose (Fingerstick) 141 mg/dL (70-99) 146 mg/dL (70-99) 173 mg/dL (70-99) Medications Active Scripts Medications Dose Route/Sig Max Daily Dose Days Date Category Comments CXR reviewed Stable bibasilar pulmonary infiltrates and small left pleural effusion. ct of chest and abd 1. Redemonstrated sequela of necrotic pancreatitis. As before there is extensive mesenteric edema but the volume of free abdominopelvic fluid has decreased. Edematous enlargement of the pancreas has slightly decreased. A fluid collection along the undersurface of the stomach has decreased in size, as detailed above. A loculated appearing fluid collection within the mid abdomen anterior to the IVC and aorta (image 55 series 4) measures similar to the prior. Ill-defined area of hypoattenuation involving the mid pancreatic body is slightly more conspicuous from the prior (image 37 series 4). It is uncertain if this represents evolving parenchymal necrosis or a developing fluid collection as assessment is limited without intravenous contrast. No air and fluid containing collection seen to suggest an abscess but note is made that the sterility of the aforementioned fluid collections is indeterminate by the imaging appearance alone. 2. Extensive reactive inflammatory changes of the abdominopelvic organs. No findings of bowel obstruction. 3. A gastrostomy tube has been placed in the interim. The tube tip is not within the stomach and is seen at the distal end of the surgical tract just deep to the ventral body wall musculature - sagittal images 35 and 36 series 9. 4. Three abdominal drains. No discrete fluid collection surrounding the tips of these drains. Cholecystostomy tube, ET tube, enteric tube, [place] and right PICC are appropriately positioned. 5. Partial collapse of the left more so than right lower lobes. Moderate-sized left pleural effusion with overlying atelectasis. No infiltrate typical of an organizing pneumonia identified. Impression . IMPRESSION: 1. Acute hypoxemic respiratory failure, multifactorial. 2. Acute gallstone pancreatitis./ Necrosis. s/p Exploratory laparotomy, pancreatic necrosectomy, cholecystostomy tube placement, Gastrostomy placement with jejunal extension, tracheostomy placement (specifically 8 shiley cuffed) 3 3. Acute kidney failure. improving 4. Metabolic toxic encephalopathy. 5. Hyperkalemia.corrected 6. Metabolic / respiratory acidosis 7. Hypocalcemia. 8. POSSIBLE ABD COMPARTMENT SYNDROME , s/p Exp lap 9. HEP B S POSITIVE 10. Hypernatremia, resolved 11. LLL small effusion, monitor 12. FEVER PER ID Plan . cont vent support setting reviewed, didnt tolerate weaning TG 1100, propofol changed to versed, avoid over sedation CT C/A/P reviewed per surgery, left pleural effusion is small, most of it is atelectasis, doubt enough fluid for thoracentesis, will discuss w dr adela pitts protonix for prophylaxis ANTI BX PER ID FOLLOW SURGERY INPUT discussed w CHRIS Shannon MD Jul 06, 2019 06:20
--- NOTE | 2019-07-06 07:35 | PDOC ---
PROGRESS NOTES Chief Complaint Chief Complaint Severe pancreatitis s/p ex-lap with pancreatic necrosectomy, cholecystectomy, gastrostomy tube lpacement, tracheostomy placement, 5 drains, 1.5L ascites drained Acute hypoxemic respiratory failure, multifactorial. Status post tracheostomy Acute gallstone pancreatitis./ Necrosis Acute kidney failure. improving Metabolic toxic encephalopathy. Hyperkalemia.corrected Metabolic / respiratory acidosis Hypocalcemia. Hepatitis B Hypernatremia LLL small effusion, monitor History of Present Illness History of Present Illness Mr Mata is a 49 yo M admitted with severe epigastric pain beginning in the morning of admission. Ultimately diagnosed with gallstone pancreatitis. Hemodialysis catheter placed for renal failure. Arterial blood gas revealed a pH of 7.30, PaCO2 of 31, PaO2 of 75, bicarb was 15. Consulted ID, GI, General surgery, nephrology, pulmonology 06/21: Ex-lap with pancreatic necrosectomy, cholecystectomy, gastrostomy tube lpacement, tracheostomy placement. 06/22 - 06/26: Has 5 abdominal drains plus a Lob[place] and an NG to suction, intubated, sedated, paralyzed 06/28- 07/02: remain on micafungin, TPN. Trached on vent, sedated, 40% FiO2 07/03: His dialysis catheter and central line were removed. Ventilated via trach and sedated 07/04: Sedated on precedex. ABG reviewed, stable. Vitals stable, drains stable, still requiring ventilation on trach. Hb 7.6. TAG 1170 changed from propofol to versed for sedation Overnight sedated. Still febrile. More comfortable on versed for sedation. Hb 7, 1u PRBC ordered. plan: Trend CBC Vitals Vitals Vital Signs Date Time Temp Pulse Resp B/P (MAP) Pulse Ox O2 Delivery O2 Flow Rate FiO2 07/06/19 06:00 101.3 95 22 118/76 (90) 100 Ventilator 101.3 Physical Exam Physical Exam GENERAL: Sedated, trached/vent - opened eyes HEENT: Pupils equal reactive NECK: Trach/vent LUNGS: Diminished aeration bases HEART: S1, S2, regular, no murmurs. ABDOMEN: Distended, fairly tight, bowel sounds quiet, drains x5, wound vac in place : Lobato in place 2 plus edema EXTREMITIES: 1+ edema, no cyanosis. SCDs bilaterally SKIN: Warm, dry. 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 ROOM DESIGNER: Sedated RT PICC line clean ( 07/01) General: No acute distress Heart: Regular rate, Normal S1, Normal S2, No murmurs, Gallops Lungs: Crackles Abdomen: Other (drains in place) Extremities: No clubbing, No cyanosis, No edema, Normal pulses, No tenderness/swelling Skin: No significant lesion Labs LABS Laboratory Tests Test 07/05/19 07:30 07/05/19 08:43 07/05/19 11:35 07/05/19 12:01 O2 Saturation 97 % (92-99) Arterial Blood pH 7.42 (7.35-7.45) Arterial Blood pCO2 at Patient Temp 41 mmHg (35-46) Arterial Blood pO2 at Patient Temp 98 mmHg (75-108) Arterial Blood HCO3 26 mmol/L (21-28) Arterial Blood Base Excess 1 mmol/L (-3-3) FiO2 40% Glucose (Fingerstick) 139 mg/dL (70-99) 168 mg/dL (70-99) Triglycerides Level 1170 mg/dL (0-150) Test 07/05/19 18:43 07/05/19 20:54 07/06/19 00:14 Glucose (Fingerstick) 141 mg/dL (70-99) 146 mg/dL (70-99) 173 mg/dL (70-99) Assessment and Plan Assessmemt and Plan Problems Medical Problems: (1) Acute pancreatitis Status: Acute (2) Nausea & vomiting Status: Acute Comment Review of Relevant I have reviewed the following items alexandra (where applicable) has been applied. Labs Laboratory Tests Test 07/04/19 08:00 07/04/19 08:20 07/04/19 08:59 07/04/19 14:03 O2 Saturation 99 % (92-99) Arterial Blood pH 7.43 (7.35-7.45) Arterial Blood pCO2 at Patient Temp 26 mmHg (35-46) Arterial Blood pO2 at Patient Temp 142 mmHg (75-108) Arterial Blood HCO3 17 mmol/L (21-28) Arterial Blood Base Excess -6 mmol/L (-3-3) FiO2 40 White Blood Count 14.0 x10^3/uL (4.0-11.0) Red Blood Count 2.66 x10^6/uL (4.30-5.70) Hemoglobin 7.6 g/dL (13.0-17.5) Hematocrit 23.7 % (39.0-53.0) Mean Corpuscular Volume 89 fL (79-100) Mean Corpuscular Hemoglobin 29 pg (25-35) Mean Corpuscular Hemoglobin Concent 32 g/dL (31-37) Red Cell Distribution Width 15.0 % (11.5-14.5) Platelet Count 428 x10^3/uL (140-400) Neutrophils (%) (Auto) 78 % (31-73) Lymphocytes (%) (Auto) 11 % (24-48) Monocytes (%) (Auto) 10 % (0-9) Eosinophils (%) (Auto) 0 % (0-3) Basophils (%) (Auto) 1 % (0-3) Neutrophils # (Auto) 10.9 x10^3/uL (1.8-7.7) Lymphocytes # (Auto) 1.6 x10^3/uL (1.0-4.8) Monocytes # (Auto) 1.4 x10^3/uL (0.0-1.1) Eosinophils # (Auto) 0.0 x10^3/uL (0.0-0.7) Basophils # (Auto) 0.1 x10^3/uL (0.0-0.2) Urine Collection Type Unknown Urine Color Demi Urine Clarity Clear Urine pH 6.0 (<5.0-8.0) Urine Specific [place] 1.020 (1.000-1.030) Urine Protein Negative mg/dL (NEG-TRACE) Urine Glucose (UA) Negative mg/dL (NEG) Urine Ketones (Stick) Negative mg/dL (NEG) Urine Blood Negative (NEG) Urine Nitrite Negative (NEG) Urine Bilirubin Moderate (NEG) Urine Urobilinogen Dipstick 1.0 mg/dL (0.2 mg/dL) Urine Leukocyte Esterase Negative (NEG) Urine RBC 0 /HPF (0-2) Urine WBC Rare /HPF (0-4) Urine Squamous Epithelial Cells Occ /LPF Urine Bacteria Few /HPF (0-FEW) Sodium Level 148 mmol/L (136-145) Potassium Level 3.7 mmol/L (3.5-5.1) Chloride Level 110 mmol/L (98-107) Carbon Dioxide Level 29 mmol/L (21-32) Anion Gap 9 (6-14) Blood Urea Nitrogen 50 mg/dL (8-26) Creatinine 1.1 mg/dL (0.7-1.3) Estimated GFR (Cockcroft-Gault) 86.1 Glucose Level 164 mg/dL (70-99) Calcium Level 8.2 mg/dL (8.5-10.1) Glucose (Fingerstick) 170 mg/dL (70-99) 228 mg/dL (70-99) Test 07/04/19 18:38 07/04/19 21:08 07/04/19 23:53 07/05/19 06:10 Glucose (Fingerstick) 220 mg/dL (70-99) 184 mg/dL (70-99) 213 mg/dL (70-99) 154 mg/dL (70-99) Test 07/05/19 07:30 07/05/19 08:43 07/05/19 11:35 07/05/19 12:01 O2 Saturation 97 % (92-99) Arterial Blood pH 7.42 (7.35-7.45) Arterial Blood pCO2 at Patient Temp 41 mmHg (35-46) Arterial Blood pO2 at Patient Temp 98 mmHg (75-108) Arterial Blood HCO3 26 mmol/L (21-28) Arterial Blood Base Excess 1 mmol/L (-3-3) FiO2 40% Glucose (Fingerstick) 139 mg/dL (70-99) 168 mg/dL (70-99) Triglycerides Level 1170 mg/dL (0-150) Test 07/05/19 18:43 07/05/19 20:54 07/06/19 00:14 Glucose (Fingerstick) 141 mg/dL (70-99) 146 mg/dL (70-99) 173 mg/dL (70-99) Laboratory Tests Test 07/05/19 07:30 07/05/19 08:43 07/05/19 11:35 07/05/19 12:01 O2 Saturation 97 % (92-99) Arterial Blood pH 7.42 (7.35-7.45) Arterial Blood pCO2 at Patient Temp 41 mmHg (35-46) Arterial Blood pO2 at Patient Temp 98 mmHg (75-108) Arterial Blood HCO3 26 mmol/L (21-28) Arterial Blood Base Excess 1 mmol/L (-3-3) FiO2 40% Glucose (Fingerstick) 139 mg/dL (70-99) 168 mg/dL (70-99) Triglycerides Level 1170 mg/dL (0-150) Test 07/05/19 18:43 07/05/19 20:54 07/06/19 00:14 Glucose (Fingerstick) 141 mg/dL (70-99) 146 mg/dL (70-99) 173 mg/dL (70-99) Microbiology 07/04/19 - Final, Resulted 07/04/19 - Final, Resulted 07/04/19 - Final, Resulted 07/04/19 - Preliminary, Resulted 07/04/19 - Preliminary, Resulted 07/04/19 - Preliminary, Resulted 07/04/19 Gram Stain Evaluation - Final, Resulted 07/04/19 Sputum Culture, Resulted Pending 07/04/19 Blood Culture - Preliminary, Resulted NO GROWTH AFTER 1 DAY 07/03/19 Aerobic Culture, Resulted Pending 07/03/19 Aerobic Culture Result 1 (CARINE), Resulted Pending 07/03/19 Gram Stain - Final, Resulted 07/03/19 Gram Stain Result 1 (CARINE) - Final, Resulted 07/03/19 Gram Stain Result 2 (CARINE) - Final, Resulted 06/22/19 AFB Specimen Processing Tissue - Final, Resulted 06/22/19 Acid Fast Bacilli Culture, Resulted Pending 06/22/19 Gram Stain - Final, Resulted 06/22/19 Fungal Culture - Preliminary, Resulted 06/22/19 Fungal Culture Result 1 - Preliminary, Resulted Medications Current Medications Morphine Sulfate (Morphine Sulfate) 4 mg PRN Q15MIN PRN IV/SQ PAIN GREATER THAN 3/10 Last administered on 06/11/19at 04:58; Start 06/11/19 at 04:30; Stop 06/11/19 at 16:47; Status DC Sodium Chloride 1,000 ml @ 1,000 mls/hr Q1H IV Last administered on 06/11/19at 04:34; Start 06/11/19 at 04:30; Stop 06/11/19 at 05:29; Status DC Ondansetron HCl (Zofran) 4 mg 1X ONCE IV Last administered on 06/11/19at 04:33; Start 06/11/19 at 04:30; Stop 06/11/19 at 04:33; Status DC Iohexol (Omnipaque 350 Mg/ml) 100 ml 1X ONCE IV Last administered on 06/11/19at 05:01; Start 06/11/19 at 04:45; Stop 06/11/19 at 04:46; Status DC Info (CONTRAST GIVEN -- Rx MONITORING) 1 each PRN DAILY PRN MC SEE COMMENTS; Start 06/11/19 at 04:45; Stop 06/13/19 at 04:44; Status DC Fentanyl Citrate (Fentanyl 2ml Vial) 100 mcg STK-MED ONCE .ROUTE ; Start 06/11/19 at 04:42; Stop 06/11/19 at 04:42; Status DC Fentanyl Citrate (Fentanyl 2ml Vial) 50 mcg 1X ONCE IVP Last administered on 06/11/19at 04:45; Start 06/11/19 at 05:00; Stop 06/11/19 at 05:01; Status DC Ondansetron HCl (Zofran) 4 mg PRN Q8HRS PRN IV NAUSEA/VOMITING Last administered on 06/12/19at 03:29; Start 06/11/19 at 05:45; Stop 06/12/19 at 05:44; Status DC Morphine Sulfate (Morphine Sulfate) 4 mg PRN Q2HR PRN IV PAIN Last administered on 06/11/19at 07:37; Start 06/11/19 at 05:45; Stop 06/11/19 at 11:54; Status DC Sodium Chloride 1,000 ml @ 150 mls/hr Q6H40M IV Last administered on 06/12/19at 03:28; Start 06/11/19 at 05:45; Stop 06/12/19 at 11:01; Status DC Hydromorphone HCl (Dilaudid) 0.5 mg PRN Q3HRS PRN IV PAIN Last administered on 06/11/19at 08:38; Start 06/11/19 at 05:45; Stop 06/11/19 at 09:12; Status DC Potassium Chloride/Water 100 ml @ 100 mls/hr Q1H IV Last administered on 06/11/19at 08:41; Start 06/11/19 at 06:00; Stop 06/11/19 at 07:59; Status DC Hydromorphone HCl (Dilaudid) 1 mg PRN Q3HRS PRN IV PAIN Last administered on 06/11/19at 09:29; Start 06/11/19 at 09:15; Stop 06/11/19 at 11:54; Status DC Prochlorperazine Edisylate (Compazine) 10 mg PRN Q8HRS PRN IV NAUSEA/VOMITING, 2ND CHOICE Last administered on 06/12/19at 14:59; Start 06/11/19 at 12:00 Hydromorphone HCl (Dilaudid) 1 mg PRN Q2HRS PRN IV SEVERE PAIN Last administered on 06/29/19at 07:35; Start 06/11/19 at 12:00 Pantoprazole Sodium (PROTONIX VIAL for IV PUSH) 40 mg DAILYAC IVP Last administered on 06/12/19at 08:29; Start 06/11/19 at 15:00; Stop 06/12/19 at 16:23; Status DC Lorazepam (Ativan Inj) 1 mg PRN Q6HRS PRN IVP ANXIETY / AGITATION Last administered on 06/29/19at 07:48; Start 06/11/19 at 18:15 Hydralazine HCl (Apresoline Inj) 10 mg PRN Q6HRS PRN IVP ELEVATED BP, SEE COMMENTS Last administered on 06/18/19at 09:32; Start 06/11/19 at 18:15; Stop 06/21/19 at 09:12; Status DC Nystatin (Nystop) 1 devorah PRN QID PRN TP FUNGAL RASH Last administered on 06/11/19at 23:19; Start 06/11/19 at 23:15 Sodium Chloride 1,000 ml @ 1,000 mls/hr 1X ONCE IV Last administered on 06/12/19at 05:27; Start 06/12/19 at 06:00; Stop 06/12/19 at 06:59; Status DC Sodium Chloride 1,000 ml @ 1,000 mls/hr 1X ONCE IV Last administered on 06/12/19at 05:25; Start 06/12/19 at 05:00; Stop 06/12/19 at 05:59; Status DC Sodium Chloride 1,000 ml @ 200 mls/hr Q5H IV Last administered on 06/12/19at 06:36; Start 06/12/19 at 07:00; Stop 06/12/19 at 11:01; Status DC Sodium Bicarbonate 50 meq/Sodium Chloride 1,050 ml @ 150 mls/hr Q7H IV Last administered on 06/13/19at 04:16; Start 06/12/19 at 11:00; Stop 06/13/19 at 14:48; Status DC Amino Acids/ Glycerin/ Electrolytes 1,000 ml @ 80 mls/hr [id number] IV ; Start 06/12/19 at 10:00; Status UNV Amino Acids/ Electrolytes/ Dextrose 1,000 ml @ 80 mls/hr [id number] IV ; Start 06/12/19 at 10:15; Stop 06/18/19 at 13:50; Status DC Piperacillin Sod/ Tazobactam Sod (Zosyn Per Pharmacy) 1 each PRN DAILY PRN MC SEE COMMENTS; Start 06/12/19 at 13:15; Stop 06/12/19 at 19:16; Status DC Piperacillin Sod/ Tazobactam Sod 2.25 gm/Sodium Chloride 50 ml @ 100 mls/hr Q6HRS IV Last administered on 06/12/19at 13:48; Start 06/12/19 at 13:30; Stop 06/12/19 at 19:15; Status DC Sodium Bicarbonate (Sodium Bicarb Adult 8.4% Syr) 50 meq 1X ONCE IV Last administered on 06/12/19at 16:12; Start 06/12/19 at 16:00; Stop 06/12/19 at 16:01; Status DC Calcium Gluconate 1000 mg/Sodium Chloride 110 ml @ 220 mls/hr 1X ONCE IV Last administered on 06/12/19at 16:13; Start 06/12/19 at 16:00; Stop 06/12/19 at 16:29; Status DC Dextrose (Dextrose 50%-Water Syringe) 25 gm 1X ONCE IV Last administered on 06/12/19at 16:13; Start 06/12/19 at 16:00; Stop 06/12/19 at 16:01; Status DC Insulin Human Regular (HumuLIN R VIAL) 10 unit 1X ONCE IV Last administered on 06/12/19at 16:14; Start 06/12/19 at 16:00; Stop 06/12/19 at 16:01; Status DC Furosemide (Lasix) 40 mg 1X ONCE IVP Last administered on 06/12/19at 16:13; Start 06/12/19 at 16:00; Stop 06/12/19 at 16:01; Status DC Pantoprazole Sodium (PROTONIX VIAL for IV PUSH) 40 mg [id number] IVP Last administered on 06/13/19at 06:21; Start 06/12/19 at 18:00; Stop 06/13/19 at 18:49; Status DC Meropenem 500 mg/ Sodium Chloride 50 ml @ 100 mls/hr Q12HR IV Last administered on 06/17/19at 20:59; Start 06/12/19 at 21:00; Stop 06/18/19 at 07:26; Status DC Calcium Gluconate 1000 mg/Sodium Chloride 110 ml @ 220 mls/hr 1X ONCE IV Last administered on 06/12/19at 20:35; Start 06/12/19 at 19:15; Stop 06/12/19 at 19:44; Status DC Lidocaine HCl (Buffered Lidocaine 1%) 3 ml STK-MED ONCE .ROUTE ; Start 06/13/19 at 08:47; Stop 06/13/19 at 08:47; Status DC Lidocaine HCl (Buffered Lidocaine 1%) 6 ml 1X ONCE INJ Last administered on 06/13/19at 09:23; Start 06/13/19 at 09:30; Stop 06/13/19 at 09:31; Status DC Insulin Human Lispro (HumaLOG) 0-7 UNITS TIDWMEALS SQ Last administered on 06/13/19at 12:14; Start 06/13/19 at 12:00; Stop 06/14/19 at 23:29; Status DC Dextrose (Dextrose 50%-Water Syringe) 12.5 gm PRN Q15MIN PRN IV SEE COMMENTS; Start 06/13/19 at 11:15; Stop 06/14/19 at 23:29; Status DC Insulin Human Regular 100 unit/ Sodium Chloride 101 ml @ 0 mls/hr CONT PRN IV SEE I/O RECORD Last administered on 06/13/19at 15:03; Start 06/13/19 at 14:15; Stop 06/21/19 at 12:37; Status DC Sodium Chloride 1,000 ml @ 1,000 mls/hr Q1H PRN IV hypotension; Start 06/13/19 at 14:00; Stop 06/13/19 at 19:59; Status DC Sodium Chloride 1,000 ml @ 400 mls/hr Q2H30M PRN IV PATENCY; Start 06/13/19 at 14:00; Stop 06/14/19 at 01:59; Status DC Info (PHARMACY MONITORING -- do not chart) 1 each PRN DAILY PRN MC SEE COMMENTS; Start 06/13/19 at 14:45; Stop 06/13/19 at 14:51; Status DC Info (PHARMACY MONITORING -- do not chart) 1 each PRN DAILY PRN MC SEE COMMENTS; Start 06/13/19 at 14:45; Stop 06/27/19 at 12:33; Status DC Pantoprazole Sodium (PROTONIX VIAL for IV PUSH) 40 mg [id number] IVP Last administered on 07/06/19at 05:49; Start 06/13/19 at 21:00 Dexmedetomidine HCl 400 mcg/ Sodium Chloride 100 ml @ 0 mls/hr CONT PRN IV PER PROTOCOL Last administered on 06/21/19at 05:52; Start 06/13/19 at 19:00; Stop 06/21/19 at 19:39; Status DC Sodium Chloride 500 ml @ 500 mls/hr 1X PRN PRN IV SEE COMMENTS; Start 06/13/19 at 19:00; Stop 07/05/19 at 08:01; Status DC Atropine Sulfate (ATROPINE 0.5mg SYRINGE) 0.5 mg PRN Q5MIN PRN IV SEE COMMENTS; Start 06/13/19 at 19:00; Stop 06/27/19 at 12:28; Status DC Sodium Chloride 1,000 ml @ 1,000 mls/hr Q1H PRN IV hypotension; Start 06/14/19 at 08:55; Stop 06/14/19 at 14:54; Status DC Albumin Human 200 ml @ 200 mls/hr 1X PRN PRN IV Hypotension Last administered on 06/14/19at 09:40; Start 06/14/19 at 09:00; Stop 06/14/19 at 14:59; Status DC Sodium Chloride 1,000 ml @ 400 mls/hr Q2H30M PRN IV PATENCY; Start 06/14/19 at 08:55; Stop 06/14/19 at 20:54; Status DC Info (PHARMACY MONITORING -- do not chart) 1 each PRN DAILY PRN MC SEE COMMENTS; Start 06/14/19 at 09:00; Stop 06/14/19 at 09:06; Status DC Info (PHARMACY MONITORING -- do not chart) 1 each PRN DAILY PRN MC SEE COMMENTS; Start 06/14/19 at 09:00; Stop 06/14/19 at 09:06; Status DC Calcium Chloride 2000 mg/Sodium Chloride 120 ml @ 240 mls/hr PRN QID PRN IV for CALCIUM < 5.8 Last administered on 06/15/19at 08:32; Start 06/14/19 at 10:15; Stop 06/15/19 at 09:58; Status DC Magnesium Sulfate 50 ml @ 25 mls/hr PRN DAILY PRN IV for Mag < 1.7 on am labs; Start 06/14/19 at 10:30 Norepinephrine Bitartrate 8 mg/ Dextrose 258 ml @ 20.027 mls/ hr CONT PRN IV PER PROTOCOL Last administered on 06/14/19at 10:31; Start 06/14/19 at 10:30 Succinylcholine Chloride (Anectine) 200 mg STK-MED ONCE .ROUTE ; Start 06/14/19 at 12:22; Stop 06/14/19 at 12:23; Status DC Etomidate (Amidate) 20 mg STK-MED ONCE IV ; Start 06/14/19 at 12:22; Stop 06/14/19 at 12:23; Status DC Fentanyl Citrate 30 ml @ 0 mls/hr CONT PRN IV SEE PROTOCOL Last administered on 06/19/19at 08:10; Start 06/14/19 at 12:45; Stop 06/19/19 at 11:00; Status DC Chlorhexidine Gluconate (Peridex) 15 ml BID MM Last administered on 06/30/19at 20:47; Start 06/14/19 at 21:00; Stop 07/01/19 at 16:34; Status DC Midazolam HCl 50 mg/Sodium Chloride 50 ml @ 0 mls/hr CONT PRN IV SEE PROTOCOL Last administered on 07/06/19at 03:00; Start 06/14/19 at 12:45 Midazolam HCl (Versed) 5 mg STK-MED ONCE .ROUTE ; Start 06/14/19 at 12:48; Stop 06/14/19 at 12:48; Status DC Fentanyl Citrate (Fentanyl 2ml Vial) 100 mcg STK-MED ONCE .ROUTE ; Start 06/14/19 at 12:48; Stop 06/14/19 at 12:48; Status DC Midazolam HCl (Versed) 5 mg 1X ONCE IV Last administered on 06/14/19at 12:59; Start 06/14/19 at 13:00; Stop 06/14/19 at 13:01; Status DC Fentanyl Citrate (Fentanyl 2ml Vial) 100 mcg 1X ONCE IM Last administered on 06/14/19at 12:58; Start 06/14/19 at 13:00; Stop 06/14/19 at 13:01; Status DC Succinylcholine Chloride (Anectine) 200 mg 1X ONCE IV Last administered on 06/14/19at 12:59; Start 06/14/19 at 13:00; Stop 06/14/19 at 13:01; Status DC Etomidate (Amidate) 14 mg 1X ONCE IV Last administered on 06/14/19at 12:59; Start 06/14/19 at 13:00; Stop 06/14/19 at 13:01; Status DC Acetaminophen (Tylenol Supp) 650 mg PRN Q6HRS PRN IL MILD PAIN / TEMP Last ad ministered on 07/06/19at 00:18; Start 06/14/19 at 20:00 Linezolid/Dextrose 300 ml @ 300 mls/hr Q12HR IV Last administered on 07/03/19at 08:34; Start 06/14/19 at 21:00; Stop 07/03/19 at 09:09; Status DC Insulin Human Lispro (HumaLOG) 0-7 UNITS TIDWMEALS SQ ; Start 06/15/19 at 08:00; Stop 06/15/19 at 00:03; Status DC Dextrose (Dextrose 50%-Water Syringe) 12.5 gm PRN Q15MIN PRN IV SEE COMMENTS; Start 06/14/19 at 23:30; Stop 07/03/19 at 10:41; Status DC Insulin Human Lispro (HumaLOG) 0-7 UNITS Q4HRS SQ Last administered on 06/23/19at 08:05; Start 06/15/19 at 00:15; Stop 07/01/19 at 16:41; Status DC Calcium Gluconate 91972 mg/Sodium Chloride 494 ml @ 4.051 mls/ hr CONT PRN IV SYMPTOMATIC HYPOCALCEMIA; Start 06/15/19 at 09:30; Stop 06/15/19 at 09:23; Status DC Calcium Gluconate 5000 mg/Sodium Chloride 260 ml @ 5.543 mls/ hr CONT PRN IV SYMPTOMATIC HYPOCALCEMIA; Start 06/15/19 at 09:30; Stop 06/15/19 at 09:26; Status DC Calcium Gluconate 5000 mg/Sodium Chloride 260 ml @ 5.543 mls/ hr CONT PRN IV SYMPTOMATIC HYPOCALCEMIA; Start 06/15/19 at 09:30; Stop 06/15/19 at 09:29; Status DC Calcium Gluconate 5000 mg/Sodium Chloride 250 ml @ 28.782 mls/ hr CONT PRN IV SYMPTOMATIC HYPOCALCEMIA Last administered on 06/18/19at 06:12; Start 06/15/19 at 09:30; Stop 06/18/19 at 13:50; Status DC Lidocaine HCl (Lidocaine Pf 2% Vial) 5 ml STK-MED ONCE .ROUTE ; Start 06/14/19 at 12:00; Stop 06/17/19 at 10:37; Status DC Meropenem 500 mg/ Sodium Chloride 50 ml @ 100 mls/hr Q6HRS IV Last administered on 07/06/19at 05:53; Start 06/18/19 at 07:30 Nicardipine HCl 50 mg/Sodium Chloride 250 ml @ 25 mls/hr CONT PRN IV SEE I/O RECORD; Start 06/18/19 at 11:45 Metoprolol Tartrate (Lopressor Vial) 5 mg 1X ONCE IVP ; Start 06/18/19 at 12:15; Stop 06/18/19 at 12:16; Status DC Fentanyl Citrate (Fentanyl 600 Mcg/30 ml ACID FILLER) 600 mcg STK-MED ONCE IV ; Start 06/15/19 at 05:30; Stop 06/18/19 at 12:07; Status DC Enoxaparin Sodium (Lovenox 40mg Syringe) 40 mg Q24H SQ Last administered on 06/21/19at 23:02; Start 06/18/19 at 22:30; Stop 06/22/19 at 11:07; Status DC Fentanyl Citrate 55 ml @ 1.98 mls/hr CONT PRN IV SEE PROTOCOL; Start 06/19/19 at 08:15; Status Cancel Info (Tpn Per Pharmacy) 1 each PRN DAILY PRN MC SEE COMMENTS Last administered on 07/05/19at 12:53; Start 06/19/19 at 11:15 Hydralazine HCl (Apresoline Inj) 10 mg PRN Q4HRS PRN IVP ELEVATED BP, 1st choice Last administered on 06/26/19at 15:43; Start 06/19/19 at 11:45 Labetalol HCl (Normodyne Iv Push) 20 mg PRN Q2HR PRN IVP HYPERTENSION, 2nd choice Last administered on 06/26/19at 14:44; Start 06/19/19 at 11:45 Potassium Phosphate 13.6 mmol/Magnesium Sulfate 10 meq/ Calcium Gluconate 20 meq/ Multivitamins 10 ml/Chromium/ Copper/Manganese/ Seleni/Zn 0.5 ml/ Total Parenteral Nutrition/Amino Acids/Dextrose/ Fat Emulsion Intravenous 1,920 ml @ 80 mls/hr TPN CONT IV Last administered on 06/19/19 21:31; Start 06/19/19 at 22:00; Stop 06/20/19 at 21:59; Status DC Fentanyl Citrate 30 ml @ 0 mls/hr CONT PRN IV SEE PROTOCOL Last administered on 06/24/19at 09:31; Start 06/19/19 at 18:00; Stop 06/24/19 at 11:38; Status DC Micafungin Sodium 100 mg/Dextrose 100 ml @ 100 mls/hr Q24H IV Last administered on 07/05/19at 08:53; Start 06/20/19 at 09:00 Potassium Phosphate 13.6 mmol/Calcium Gluconate 20 meq/ Multivitamins 10 ml/Chromium/ Copper/Manganese/ Seleni/Zn 0.5 ml/ Insulin Human Regular 10 unit/ Total Parenteral Nutrition/Amino Acids/Dextrose/ Fat Emulsion Intravenous 1,920 ml @ 80 mls/hr TPN CONT IV Last administered on 06/20/19at 21:57; Start 06/20/19 at 22:00; Stop 06/21/19 at 21:59; Status DC Insulin Glargine (Lantus Syringe) 15 unit QHS SQ Last administered on 06/20/19 20:46; Start 06/20/19 at 21:00; Stop 06/21/19 at 12:32; Status DC Insulin Glargine (Lantus Syringe) 20 unit QHS SQ Last administered on 07/02/19at 20:46; Start 06/21/19 at 21:00; Stop 07/03/19 at 10:39; Status DC Potassium Phosphate 13.6 mmol/Calcium Gluconate 20 meq/ Multivitamins 10 ml/Chromium/ Copper/Manganese/ Seleni/Zn 0.5 ml/ Insulin Human Regular 10 unit/ Total Parenteral Nutrition/Amino Acids/Dextrose/ Fat Emulsion Intravenous 1,920 ml @ 80 mls/hr TPN CONT IV Last administered on 06/21/19at 21:31; Start 06/21/19 at 22:00; Stop 06/22/19 at 21:59; Status DC Dextrose 1,000 ml @ 75 mls/hr [id number] IV Last administered on 06/27/19at 01:32; Start 06/22/19 at 07:00; Stop 06/27/19 at 12:43; Status DC Albuterol Sulfate (Ventolin Neb Soln) 2.5 mg RTQID NEB Last administered on 07/05/19at 20:42; Start 06/22/19 at 08:00 Iohexol (Omnipaque 240 Mg/ml) 30 ml 1X ONCE PO ; Start 06/22/19 at 08:00; Stop 06/22/19 at 08:05; Status DC Iohexol (Omnipaque 300 Mg/ml) 75 ml 1X ONCE IV ; Start 06/22/19 at 08:00; Stop 06/22/19 at 08:01; Status Cancel Info (CONTRAST GIVEN -- Rx MONITORING) 1 each PRN DAILY PRN MC SEE COMMENTS; Start 06/22/19 at 08:15; Stop 06/24/19 at 08:14; Status DC Cefoxitin Sodium (Mefoxin) 2 gm 1X PREOP IVP ; Start 06/22/19 at 11:00; Stop 06/22/19 at 11:16; Status DC Cefoxitin Sodium (Mefoxin) 2 gm 1X PREOP ONCE IVP Last administered on 06/22/19at 11:37; Start 06/22/19 at 11:30; Stop 06/22/19 at 11:31; Status DC Rocuronium [place] (Zemuron) 50 mg STK-MED ONCE .ROUTE ; Start 06/22/19 at 11:42; Stop 06/22/19 at 11:42; Status DC Propofol 20 ml @ As Directed STK-MED ONCE IV ; Start 06/22/19 at 11:42; Stop 06/22/19 at 11:43; Status DC Dexamethasone Sodium Phosphate (Decadron) 4 mg STK-MED ONCE .ROUTE ; Start 06/22/19 at 11:45; Stop 06/22/19 at 11:45; Status DC Ondansetron HCl (Zofran) 4 mg STK-MED ONCE .ROUTE ; Start 06/22/19 at 11:45; Stop 06/22/19 at 11:45; Status DC Potassium Phosphate 13.6 mmol/Magnesium Sulfate 5 meq/ Calcium Gluconate 20 meq/ Multivitamins 10 ml/Chromium/ Copper/Manganese/ Seleni/Zn 0.5 ml/ Total Parenteral Nutrition/Amino Acids/Dextrose/ Fat Emulsion Intravenous 1,920 ml @ 80 mls/hr TPN CONT IV Last administered on 06/22/19at 22:14; Start 06/22/19 at 22:00; Stop 06/23/19 at 21:59; Status DC Rocuronium [place] (Zemuron) 100 mg STK-MED ONCE .ROUTE ; Start 06/22/19 at 13:05; Stop 06/22/19 at 13:06; Status DC Cellulose (Surgicel Hemostat 4x8) 1 each STK-MED ONCE .ROUTE Last administered on 06/22/19at 12:46; Start 06/22/19 at 13:14; Stop 06/22/19 at 13:14; Status DC Albumin Human 500 ml @ As Directed STK-MED ONCE IV ; Start 06/22/19 at 13:25; Stop 06/22/19 at 13:25; Status DC Sevoflurane (Ultane) 90 ml STK-MED ONCE IH ; Start 06/22/19 at 13:53; Stop 06/22/19 at 13:53; Status DC Cellulose (Surgicel Hemostat 4x8) 1 each STK-MED ONCE TP Last administered on 06/22/19at 12:46; Start 06/22/19 at 12:46; Stop 06/22/19 at 14:25; Status DC Cellulose (Surgicel Hemostat 4x8) 1 each STK-MED ONCE TP Last administered on 06/22/19at 12:46; Start 06/22/19 at 12:46; Stop 06/22/19 at 14:25; Status DC Rocuronium [place] (Zemuron) 50 mg STK-MED ONCE .ROUTE ; Start 06/22/19 at 14:52; Stop 06/22/19 at 14:52; Status DC Vecuronium [place] 50 mg/ Miscellaneous 50 ml @ 4.925 mls/ hr CONT PRN IV SEE PROTOCOL Last administered on 06/25/19at 05:19; Start 06/22/19 at 15:00 Enoxaparin Sodium (Lovenox 40mg Syringe) 40 mg Q24H SQ Last administered on 07/06/19at 05:49; Start 06/23/19 at 06:00 Sodium Chloride (Normal Saline Flush) 3 ml QSHIFT PRN IV AFTER MEDS AND BLOOD DRAWS; Start 06/22/19 at 15:45 Ringer's Solution 1,000 ml @ 100 mls/hr Q10H IV Last administered on 06/23/19at 22:06; Start 06/22/19 at 15:39; Stop 06/24/19 at 17:46; Status DC Naloxone HCl (Narcan) 0.4 mg PRN Q2MIN PRN IV SEE INSTRUCTIONS; Start 06/22/19 at 15:45 Sodium Chloride 1,000 ml @ 25 mls/hr Q24H IV Last administered on 07/02/19at 15:39; Start 06/22/19 at 15:39 Morphine Sulfate (Morphine Sulfate) 1 mg PRN Q1HR PRN IV MODERATE PAIN; Start 06/22/19 at 15:45 Ondansetron HCl (Zofran) 4 mg PRN Q6HRS PRN IVP NAUESA, 1ST CHOICE; Start at 15:45 Calcium Gluconate (Calcium Gluconate) 1,000 mg 1X ONCE IVP ; Start 06/22/19 at 19:45; Stop 06/22/19 at 20:15; Status DC Sodium Bicarbonate (Sodium Bicarb Adult 8.4% Syr) 50 meq 1X ONCE IV Last administered on 06/22/19at 20:37; Start 06/22/19 at 19:45; Stop 06/22/19 at 19:57; Status DC Dextrose (Dextrose 50%-Water Syringe) 25 gm 1X ONCE IV Last administered on 06/22/19at 20:37; Start 06/22/19 at 19:45; Stop 06/22/19 at 19:57; Status DC Insulin Human Regular (HumuLIN R VIAL) 10 unit 1X ONCE IV Last administered on 06/22/19at 20:45; Start 06/22/19 at 19:45; Stop 06/22/19 at 19:57; Status DC Calcium Gluconate 1000 mg/Sodium Chloride 110 ml @ 220 mls/hr 1X ONCE IV Last administered on 06/22/19at 20:36; Start 06/22/19 at 20:15; Stop 06/22/19 at 20:44; Status DC Insulin Human Regular 100 unit/ Sodium Chloride 101 ml @ 0 mls/hr CONT PRN IV SEE I/O RECORD Last administered on 07/02/19at 18:55; Start 06/23/19 at 12:15; Stop 07/03/19 at 10:39; Status DC Sodium Phosphate 10 mmol/Magnesium Sulfate 5 meq/ Calcium Gluconate 15 meq/ Multivitamins 10 ml/Chromium/ Copper/Manganese/ Seleni/Zn 0.5 ml/ Insulin Human Regular 10 unit/ Total Parenteral Nutrition/Amino Acids/Dextrose/ Fat Emulsion Intravenous 1,920 ml @ 80 mls/hr TPN CONT IV Last administered on 06/23/19at 22:20; Start 06/23/19 at 22:00; Stop 06/24/19 at 21:59; Status DC Fentanyl Citrate 55 ml @ 1.98 mls/hr CONT PRN IV SEE PROTOCOL Last administered on 07/05/19at 13:08; Start 06/24/19 at 11:45 Sodium Phosphate 10 mmol/Magnesium Sulfate 5 meq/ Calcium Gluconate 15 meq/ Multivitamins 10 ml/Chromium/ Copper/Manganese/ Seleni/Zn 0.5 ml/ Total Parenteral Nutrition/Amino Acids/Dextrose/ Fat Emulsion Intravenous 1,920 ml @ 80 mls/hr TPN CONT IV Last administered on 06/24/19at 22:26; Start 06/24/19 at 22:00; Stop 06/25/19 at 21:59; Status DC Sodium Phosphate 10 mmol/Magnesium Sulfate 5 meq/ Calcium Gluconate 15 meq/ Multivitamins 10 ml/Chromium/ Copper/Manganese/ Seleni/Zn 0.5 ml/ Total Parenteral Nutrition/Amino Acids/Dextrose/ Fat Emulsion Intravenous 1,920 ml @ 80 mls/hr TPN CONT IV Last administered on 06/25/19at 22:27; Start 06/25/19 at 22:00; Stop 06/26/19 at 21:59; Status DC Sodium Phosphate 10 mmol/Magnesium Sulfate 5 meq/ Calcium Gluconate 15 meq/ Multivitamins 10 ml/Chromium/ Copper/Manganese/ Seleni/Zn 0.5 ml/ Total Parenteral Nutrition/Amino Acids/Dextrose/ Fat Emulsion Intravenous 1,920 ml @ 80 mls/hr TPN CONT IV Last administered on 06/26/19at 21:57; Start 06/26/19 at 22:00; Stop 06/27/19 at 21:59; Status DC Furosemide (Lasix) 60 mg 1X ONCE IVP Last administered on 06/26/19at 12:22; Start 06/26/19 at 12:30; Stop 06/26/19 at 12:31; Status DC Dexmedetomidine HCl 400 mcg/ Sodium Chloride 100 ml @ 0 mls/hr CONT PRN IV ANXIETY / AGITATION Last administered on 07/06/19at 05:37; Start 06/26/19 at 19: 00 Sodium Chloride 500 ml @ 500 mls/hr 1X PRN PRN IV SEE COMMENTS; Start 06/26/19 at 19:00 Atropine Sulfate (ATROPINE 0.5mg SYRINGE) 0.5 mg PRN Q5MIN PRN IV SEE COMMENTS; Start 06/26/19 at 19:00 Sodium Bicarbonate (Sodium Bicarb Adult 8.4% Syr) 50 meq 1X ONCE IV ; Start 06/26/19 at 19:30; Stop 06/26/19 at 19:23; Status DC Furosemide (Lasix) 40 mg DAILY IVP Last administered on 07/05/19at 08:45; Start 06/27/19 at 12:00 Propofol 100 ml @ As Directed STK-MED ONCE IV ; Start 06/27/19 at 11:51; Stop 06/27/19 at 11:51; Status DC Propofol 100 ml @ 6.588 mls/ hr CONT PRN IV SEE I/O RECORD Last administered on 07/05/19at 12:08; Start 06/27/19 at 12:00 Sodium Phosphate 10 mmol/Magnesium Sulfate 5 meq/ Calcium Gluconate 15 meq/ Multivitamins 10 ml/Chromium/ Copper/Manganese/ Seleni/Zn 0.5 ml/ Total Parenteral Nutrition/Amino Acids/Dextrose/ Fat Emulsion Intravenous 1,920 ml @ 80 mls/hr TPN CONT IV ; Start 06/27/19 at 22:00; Stop 06/27/19 at 12:55; Status DC Potassium Phosphate 10 mmol/ Magnesium Sulfate 5 meq/Calcium Gluconate 15 meq/ Multivitamins 10 ml/Chromium/ Copper/Manganese/ Seleni/Zn 0.5 ml/ Total Parenteral Nutrition/Amino Acids/Dextrose/ Fat Emulsion Intravenous 1,920 ml @ 80 mls/hr TPN CONT IV Last administered on 06/27/19at 21:38; Start 06/27/19 at 22:00; Stop 06/28/19 at 21:59; Status DC Potassium Chloride/Water 100 ml @ 50 mls/hr 1X ONCE IV Last administered on 06/28/19at 15:00; Start 06/28/19 at 15:00; Stop 06/28/19 at 16:59; Status DC Potassium Phosphate 10 mmol/ Magnesium Sulfate 5 meq/Calcium Gluconate 15 meq/ Multivitamins 10 ml/Chromium/ Copper/Manganese/ Seleni/Zn 0.5 ml/ Potassium Acetate 20 meq/Total Parenteral Nutrition/Amino Acids/Dextrose/ Fat Emulsion Intravenous 1,920 ml @ 80 mls/hr TPN CONT IV Last administered on 06/28/19at 22:14; Start 06/28/19 at 22:00; Stop 06/29/19 at 21:59; Status DC Potassium Chloride/Water 100 ml @ 50 mls/hr 1X ONCE IV Last administered on 06/29/19at 08:57; Start 06/29/19 at 09:00; Stop 06/29/19 at 10:59; Status DC Potassium Phosphate 10 mmol/ Magnesium Sulfate 5 meq/Calcium Gluconate 15 meq/ Multivitamins 10 ml/Chromium/ Copper/Manganese/ Seleni/Zn 0.5 ml/ Potassium Acetate 20 meq/Total Parenteral Nutrition/Amino Acids/Dextrose/ Fat Emulsion Intravenous 1,920 ml @ 80 mls/hr TPN CONT IV Last administered on 06/29/19at 21:32; Start 06/29/19 at 22:00; Stop 06/30/19 at 21:59; Status DC Potassium Phosphate 10 mmol/ Magnesium Sulfate 5 meq/Calcium Gluconate 15 meq/ Multivitamins 10 ml/Chromium/ Copper/Manganese/ Seleni/Zn 0.5 ml/ Potassium Acetate 20 meq/Total Parenteral Nutrition/Amino Acids/Dextrose 1,920 ml @ 80 mls/hr TPN CONT IV Last administered on 06/30/19at 21:38; Start 06/30/19 at 22:00; Stop 07/01/19 at 21:59; Status DC Potassium Phosphate 10 mmol/ Magnesium Sulfate 5 meq/Calcium Gluconate 15 meq/ Multivitamins 10 ml/Chromium/ Copper/Manganese/ Seleni/Zn 0.5 ml/ Potassium Acetate 10 meq/Total Parenteral Nutrition/Amino Acids/Dextrose 1,920 ml @ 80 mls/hr TPN CONT IV Last administered on 07/01/19at 21:30; Start 07/01/19 at 22:00; Stop 07/02/19 at 21:59; Status DC Potassium Phosphate 10 mmol/ Magnesium Sulfate 5 meq/Calcium Gluconate 15 meq/ Multivitamins 10 ml/Chromium/ Copper/Manganese/ Seleni/Zn 0.5 ml/ Potassium Acetate 10 meq/Total Parenteral Nutrition/Amino Acids/Dextrose 1,920 ml @ 80 mls/hr TPN CONT IV Last administered on 07/02/19at 21:36; Start 07/02/19 at 22:00; Stop 07/03/19 at 21:59; Status DC Daptomycin 520 mg/ Sodium Chloride 50 ml @ 100 mls/hr Q24H IV Last administered on 07/05/19at 09:31; Start 07/03/19 at 10:00 Insulin Glargine (Lantus Syringe) 30 unit BID SQ Last administered on 07/05/19at 21:00; Start 07/03/19 at 11:00 Insulin Human Lispro (HumaLOG) 0-9 UNITS Q6HRS SQ Last administered on 07/06/19at 06:00; Start 07/03/19 at 12:00 Dextrose (Dextrose 50%-Water Syringe) 12.5 gm PRN Q15MIN PRN IV SEE COMMENTS; Start 07/03/19 at 10:30 Potassium Acetate 10 meq/Potassium Phosphate 10 mmol/ Magnesium Sulfate 5 meq/Calcium Gluconate 15 meq/ Multivitamins 10 ml/Chromium/ Copper/Manganese/ Seleni/Zn 0.5 ml/ Total Parenteral Nutrition/Amino Acids/Dextrose 1,920 ml @ 80 mls/hr TPN CONT IV Last administered on 07/03/19at 21:26; Start 07/03/19 at 22:00; Stop 07/04/19 at 21:59; Status DC Linezolid/Dextrose 300 ml @ 300 mls/hr Q12HR IV Last administered on 07/05/19at 20:58; Start 07/04/19 at 09:00 Potassium Acetate 10 meq/Potassium Phosphate 10 mmol/ Magnesium Sulfate 5 meq/Calcium Gluconate 15 meq/ Multivitamins 10 ml/Chromium/ Copper/Manganese/ Seleni/Zn 0.5 ml/ Total Parenteral Nutrition/Amino Acids/Dextrose 1,920 ml @ 80 mls/hr TPN CONT IV Last administered on 07/04/19at 21:13; Start 07/04/19 at 22:00; Stop 07/05/19 at 21:59; Status DC Lidocaine HCl (Buffered Lidocaine 1%) 3 ml STK-MED ONCE .ROUTE ; Start 07/04/19 at 14:23; Stop 07/04/19 at 14:23; Status DC Iohexol (Omnipaque 240 Mg/ml) 50 ml STK-MED ONCE .ROUTE ; Start 07/04/19 at 14:23; Stop 07/04/19 at 14:24; Status DC Lidocaine HCl (Buffered Lidocaine 1%) 3 ml 1X ONCE INJ Last administered on 07/04/19at 15:34; Start 07/04/19 at 14:30; Stop 07/04/19 at 14:31; Status DC Iohexol (Omnipaque 240 Mg/ml) 50 ml 1X ONCE IJ Last administered on 07/04/19at 15:33; Start 07/04/19 at 14:30; Stop 07/04/19 at 14:31; Status DC Info (CONTRAST GIVEN -- Rx MONITORING) 1 each PRN DAILY PRN MC SEE COMMENTS; Start 07/04/19 at 14:30; Stop 07/06/19 at 14:29 Potassium Acetate 10 meq/Potassium Phosphate 10 mmol/ Magnesium Sulfate 5 meq/Calcium Gluconate 15 meq/ Multivitamins 10 ml/Chromium/ Copper/Manganese/ Seleni/Zn 0.5 ml/ Total Parenteral Nutrition/Amino Acids/Dextrose 1,920 ml @ 80 mls/hr TPN CONT IV Last administered on 07/05/19at 20:59; Start 07/05/19 at 22:00; Stop 07/06/19 at 21:59 Active Scripts Active Vitals/I & O Vital Sign - Last 24 Hours 07/05/19 07/05/19 07/05/19/21/20 07:40 08:00 08:00 09:00 Temp 100.8 100.6 100.8 100.6 Pulse 86 87 Resp B/P (MAP) 102/59 (73) 110/63 (79) Pulse Ox 100 99 99 O2 Delivery Ventilator Ventilator Mechanical Ventilator Ventilator 07/05/19 07/05/19 07/05/19 07/05/19 09:03 10:00 11:00 11:16 Temp 100.4 100.6 100.4 100.6 Pulse 85 88 Resp B/P (MAP) 101/60 (74) 103/54 (70) Pulse Ox 99 99 99 99 O2 Delivery Ventilator Ventilator Ventilator Ventilator 07/05/19 07/05/19 07/05/19 07/05/19 12:00 12:00 12:59 13:00 Temp 100.4 100.4 Pulse 86 92 Resp B/P (MAP) 101/56 (71) 101/61 (74) Pulse Ox 98 100 99 O2 Delivery Mechanical Ventilator Ventilator Ventilator Ventilator 07/05/19 07/05/19 07/05/19 07/05/19 13:08 14:00 15:00 15:48 Temp 101.1 100.9 101.1 100.9 Pulse 90 83 Resp B/P (MAP) 104/57 (73) 101/57 (72) Pulse Ox 98 99 99 99 O2 Delivery Ventilator Ventilator Ventilator 07/05/19 07/05/19 07/05/19 07/05/19 16:00 16:00 17:00 17:41 Temp 100.9 100.9 100.9 100.9 Pulse 82 82 Resp B/P (MAP) 98/60 (73) 100/59 (73) Pulse Ox 100 100 100 O2 Delivery Mechanical Ventilator Ventilator Ventilator Ventilator 07/05/19 07/05/19 07/05/19 07/05/19 18:00 19:00 20:00 20:00 Temp 101.1 101.1 101.3 101.1 101.1 101.3 Pulse 83 83 84 Resp B/P (MAP) 103/62 (76) 98/61 (73) 109/64 (79) Pulse Ox 100 99 100 O2 Delivery Ventilator Ventilator Mechanical Ventilator Ventilator 07/05/19 07/05/19 07/05/19/21/20 20:42 21:00 22:00 23:00 Temp 101.3 101.3 101.5 101.3 101.3 101.5 Pulse 90 95 100 Resp B/P (MAP) 109/63 (78) 118/75 (89) 128/79 (95) Pulse Ox 100 100 100 100 O2 Delivery Ventilator Ventilator Ventilator Ventilator 07/06/19 07/06/19 07/06/19 07/06/19 00:00 00:00 00:34 01:00 Temp 101.8 101.7 101.8 101.7 Pulse 97 107 Resp B/P (MAP) 120/72 (88) 133/78 (96) Pulse Ox 100 100 100 O2 Delivery Ventilator Mechanical Ventilator Ventilator Ventilator 07/06/19 07/06/19 07/06/19 07/06/19 02:00 03:00 03:41 04:00 Temp 101.7 101.5 101.7 101.5 Pulse 96 95 Resp B/P (MAP) 130/79 (96) 118/72 (87) Pulse Ox 100 100 100 O2 Delivery Ventilator Ventilator Ventilator Mechanical Ventilator 07/06/19 07/06/19 07/06/19 07/06/19 04:00 05:00 05:44 06:00 Temp 101.5 101.3 101.3 101.5 101.3 101.3 Pulse 93 92 95 Resp B/P (MAP) 112/71 (85) 123/72 (89) 118/76 (90) Pulse Ox 100 98 98 100 O2 Delivery Ventilator Ventilator Ventilator Ventilator Intake and Output 07/05/19 07/05/19 07/06/19 14:59 22:59 06:59 Intake Total 450 ml 1580 ml 1575 ml Output Total 1840 ml 1377 ml 1425 ml Balance -1390 ml 203 ml 150 ml Hemodynamically unstable?: No Is patient in severe pain?: No Is NPO status required?: Yes JUAN ANTONIO OWUSU MD Jul 06, 2019 07:35
[2019-07-06 07:46] LABS: BASO # 0.1 x10^3/uL (0.0-0.2); BASO % 1 % (0-3); EOS # 0.1 x10^3/uL (0.0-0.7); EOS % 1 % (0-3); HEMATOCRIT 22.7 % (39.0-53.0); LYMPH # 1.1 x10^3/uL (1.0-4.8); LYMPH % 8 % (24-48); MEAN CORPUSCULAR HEMOGLOBIN 29 pg (25-35); MEAN CORPUSCULAR HGB CONC 31 g/dL (31-37); MEAN CORPUSCULAR VOLUME 93 fL (79-100); MONO # 1.3 x10^3/uL (0.0-1.1); MONO % 9 % (0-9); NEUT # 11.3 x10^3/uL (1.8-7.7); NEUT % 81 % (31-73); PLATELET COUNT 478 x10^3/uL (140-400); RED BLOOD COUNT 2.44 x10^6/uL (4.30-5.70); RED CELL DISTRIBUTION WIDTH 15.4 % (11.5-14.5); WHITE BLOOD COUNT 13.9 x10^3/uL (4.0-11.0)
[2019-07-06] MEDS: ALBUTEROL SULFATE 2.5 MG/3 ML NEBU. NEB SCH ×4 (08:19→20:45)
[2019-07-06] MEDS: MICAFUNGIN 100 MG in IV DEXTROSE 5% 100ML 100 ML IV SCH (08:38)
[2019-07-06] MEDS: FUROSEMIDE 40 MG/4 ML VIAL. IVP SCH (08:40)
[2019-07-06 08:43] LABS: BASE EXCESS ABG 3 mmol/L (-3-3); HCO3 ABG 27 mmol/L (21-28); PCO2 ABG 40 mmHg (35-46); PO2 ABG 89 mmHg (75-108); SAT O2 ABG 96 % (92-99)
[2019-07-06] MEDS: INSULIN GLARGINE SYRINGE. SQ SCH ×2 (08:47→21:54)
[2019-07-06] MEDS: DAPTOmycin (GENERIC) IVPB 520 MG in IV NORMAL SALINE 50ML 50 ML IV SCH (10:02)
[2019-07-06 10:20] LABS: FIO2 ABG 40
--- NOTE | 2019-07-06 12:24 | PDOC ---
G I PROGRESS NOTE Subjective Sedated on ventilator. Physical Exam Lung with end-inspiratory "squeak". RRR Abdomen remains firm. No bowel sounds heard. Review of Relevant I have reviewed the following items alexandra (where applicable) has been applied. Labs Laboratory Tests Test 07/04/19 14:03 07/04/19 18:38 07/04/19 21:08 07/04/19 23:53 Glucose (Fingerstick) 228 mg/dL (70-99) 220 mg/dL (70-99) 184 mg/dL (70-99) 213 mg/dL (70-99) Test 07/05/19 06:10 07/05/19 07:30 07/05/19 08:43 07/05/19 11:35 Glucose (Fingerstick) 154 mg/dL (70-99) 139 mg/dL (70-99) O2 Saturation 97 % (92-99) Arterial Blood pH 7.42 (7.35-7.45) Arterial Blood pCO2 at Patient Temp 41 mmHg (35-46) Arterial Blood pO2 at Patient Temp 98 mmHg (75-108) Arterial Blood HCO3 26 mmol/L (21-28) Arterial Blood Base Excess 1 mmol/L (-3-3) FiO2 40% Triglycerides Level 1170 mg/dL (0-150) Test 07/05/19 12:01 07/05/19 18:43 07/05/19 20:54 07/06/19 00:14 Glucose (Fingerstick) 168 mg/dL (70-99) 141 mg/dL (70-99) 146 mg/dL (70-99) 173 mg/dL (70-99) Test 07/06/19 05:58 07/06/19 07:15 07/06/19 08:00 Glucose (Fingerstick) 155 mg/dL (70-99) White Blood Count 13.9 x10^3/uL (4.0-11.0) Red Blood Count 2.44 x10^6/uL (4.30-5.70) Hemoglobin 7.0 g/dL (13.0-17.5) Hematocrit 22.7 % (39.0-53.0) Mean Corpuscular Volume 93 fL (79-100) Mean Corpuscular Hemoglobin 29 pg (25-35) Mean Corpuscular Hemoglobin Concent 31 g/dL (31-37) Red Cell Distribution Width 15.4 % (11.5-14.5) Platelet Count 478 x10^3/uL (140-400) Neutrophils (%) (Auto) 81 % (31-73) Lymphocytes (%) (Auto) 8 % (24-48) Monocytes (%) (Auto) 9 % (0-9) Eosinophils (%) (Auto) 1 % (0-3) Basophils (%) (Auto) 1 % (0-3) Neutrophils # (Auto) 11.3 x10^3/uL (1.8-7.7) Lymphocytes # (Auto) 1.1 x10^3/uL (1.0-4.8) Monocytes # (Auto) 1.3 x10^3/uL (0.0-1.1) Eosinophils # (Auto) 0.1 x10^3/uL (0.0-0.7) Basophils # (Auto) 0.1 x10^3/uL (0.0-0.2) O2 Saturation 96 % (92-99) Arterial Blood pH 7.45 (7.35-7.45) Arterial Blood pCO2 at Patient Temp 40 mmHg (35-46) Arterial Blood pO2 at Patient Temp 89 mmHg (75-108) Arterial Blood HCO3 27 mmol/L (21-28) Arterial Blood Base Excess 3 mmol/L (-3-3) FiO2 40 Laboratory Tests Test 07/05/19 18:43 07/05/19 20:54 07/06/19 00:14 07/06/19 05:58 Glucose (Fingerstick) 141 mg/dL (70-99) 146 mg/dL (70-99) 173 mg/dL (70-99) 155 mg/dL (70-99) Test 07/06/19 07:15 07/06/19 08:00 White Blood Count 13.9 x10^3/uL (4.0-11.0) Red Blood Count 2.44 x10^6/uL (4.30-5.70) Hemoglobin 7.0 g/dL (13.0-17.5) Hematocrit 22.7 % (39.0-53.0) Mean Corpuscular Volume 93 fL (79-100) Mean Corpuscular Hemoglobin 29 pg (25-35) Mean Corpuscular Hemoglobin Concent 31 g/dL (31-37) Red Cell Distribution Width 15.4 % (11.5-14.5) Platelet Count 478 x10^3/uL (140-400) Neutrophils (%) (Auto) 81 % (31-73) Lymphocytes (%) (Auto) 8 % (24-48) Monocytes (%) (Auto) 9 % (0-9) Eosinophils (%) (Auto) 1 % (0-3) Basophils (%) (Auto) 1 % (0-3) Neutrophils # (Auto) 11.3 x10^3/uL (1.8-7.7) Lymphocytes # (Auto) 1.1 x10^3/uL (1.0-4.8) Monocytes # (Auto) 1.3 x10^3/uL (0.0-1.1) Eosinophils # (Auto) 0.1 x10^3/uL (0.0-0.7) Basophils # (Auto) 0.1 x10^3/uL (0.0-0.2) O2 Saturation 96 % (92-99) Arterial Blood pH 7.45 (7.35-7.45) Arterial Blood pCO2 at Patient Temp 40 mmHg (35-46) Arterial Blood pO2 at Patient Temp 89 mmHg (75-108) Arterial Blood HCO3 27 mmol/L (21-28) Arterial Blood Base Excess 3 mmol/L (-3-3) FiO2 40 Microbiology 07/04/19 - Final, Resulted 07/04/19 - Final, Resulted 07/04/19 - Final, Resulted 07/04/19 - Preliminary, Resulted 07/04/19 - Preliminary, Resulted 07/04/19 - Preliminary, Resulted 07/04/19 Gram Stain Evaluation - Final, Resulted 07/04/19 Sputum Culture - Preliminary, Resulted 07/04/19 Sputum Result 1 - Final, Resulted 07/04/19 Blood Culture - Preliminary, Resulted NO GROWTH AFTER 2 DAYS 07/03/19 Aerobic Culture, Resulted Pending 07/03/19 Aerobic Culture Result 1 (CARINE), Resulted Pending 07/03/19 Gram Stain - Final, Resulted 07/03/19 Gram Stain Result 1 (CARINE) - Final, Resulted 07/03/19 Gram Stain Result 2 (CARINE) - Final, Resulted 06/22/19 AFB Specimen Processing Tissue - Final, Resulted 06/22/19 Acid Fast Bacilli Culture, Resulted Pending 06/22/19 Gram Stain - Final, Resulted 06/22/19 Fungal Culture - Preliminary, Resulted 06/22/19 Fungal Culture Result 1 - Preliminary, Resulted Vitals/I & O Vital Sign - Last 24 Hours 07/05/19 07/05/19 07/05/19 07/05/19 12:59 13:00 13:08 14:00 Temp 101.1 101.1 Pulse 92 90 Resp B/P (MAP) 101/61 (74) 104/57 (73) Pulse Ox 100 99 98 99 O2 Delivery Ventilator Ventilator Ventilator 07/05/19 07/05/19 07/05/19 07/05/19 15:00 15:48 16:00 16:00 Temp 100.9 100.9 100.9 100.9 Pulse 83 82 Resp B/P (MAP) 101/57 (72) 98/60 (73) Pulse Ox 99 99 100 O2 Delivery Ventilator Ventilator Mechanical Ventilator Ventilator 07/05/19 07/05/19 07/05/19 07/05/19 17:00 17:41 18:00 19:00 Temp 100.9 101.1 101.1 100.9 101.1 101.1 Pulse 82 83 83 Resp B/P (MAP) 100/59 (73) 103/62 (76) 98/61 (73) Pulse Ox 100 100 100 99 O2 Delivery Ventilator Ventilator Ventilator Ventilator 07/05/19 07/05/19 07/05/19 07/05/19 20:00 20:00 20:42 21:00 Temp 101.3 101.3 101.3 101.3 Pulse 84 90 Resp B/P (MAP) 109/64 (79) 109/63 (78) Pulse Ox 100 100 100 O2 Delivery Mechanical Ventilator Ventilator Ventilator Ventilator 07/05/19 07/05/19 07/06/19 07/06/19 22:00 23:00 00:00 00:00 Temp 101.3 101.5 101.8 101.3 101.5 101.8 Pulse 95 100 97 Resp 27 B/P (MAP) 118/75 (89) 128/79 (95) 120/72 (88) Pulse Ox 100 100 100 O2 Delivery Ventilator Ventilator Ventilator Mechanical Ventilator 07/06/19 07/06/19 07/06/19 3/22/20 00:34 01:00 02:00 03:00 Temp 101.7 101.7 101.5 101.7 101.7 101.5 Pulse 107 96 95 Resp B/P (MAP) 133/78 (96) 130/79 (96) 118/72 (87) Pulse Ox 100 100 100 100 O2 Delivery Ventilator Ventilator Ventilator Ventilator 07/06/19 07/06/19 07/06/19 07/06/19 03:41 04:00 04:00 05:00 Temp 101.5 101.3 101.5 101.3 Pulse 93 92 Resp B/P (MAP) 112/71 (85) 123/72 (89) Pulse Ox 100 100 98 O2 Delivery Ventilator Mechanical Ventilator Ventilator Ventilator 07/06/19 07/06/19 07/06/19 07/06/19 05:44 06:00 07:00 08:00 Temp 101.3 101.3 101.5 101.3 101.3 101.5 Pulse 95 97 92 Resp B/P (MAP) 118/76 (90) 130/80 (97) 121/75 (90) Pulse Ox 98 100 97 98 O2 Delivery Ventilator Ventilator Ventilator Ventilator 07/06/19 07/06/19 07/06/19 07/06/19 08:00 08:19 09:00 10:00 Temp 101.3 101.3 101.3 101.3 Pulse 88 84 Resp B/P (MAP) 115/68 (84) 106/65 (79) Pulse Ox 99 99 100 O2 Delivery Mechanical Ventilator Ventilator Ventilator Ventilator Intake and Output 07/05/19 07/05/19 07/06/19 15:00 23:00 07:00 Intake Total 450 ml 1580 ml 1575 ml Output Total 1950 ml 1302 ml 1390 ml Balance -1500 ml 278 ml 185 ml Problem List Problems Medical Problems: (1) Acute pancreatitis Status: Acute (2) Nausea & vomiting Status: Acute Assessment Biliary pancreatitis, severe, with MOSF. Making urine. No better/no worse. Plan of Care Note Continue support. Interval CT later this week. Hemodynamically unstable?: No Is patient in severe pain?: No Is NPO status required?: Yes MARIA L CRUZ MD Jul 06, 2019 12:24
--- NOTE | 2019-07-06 13:12 | PDOC ---
SURGICAL PROGRESS NOTE Subjective Ceasar for Dr Dawson on vent sedated Vital Signs Vital Signs Date Time Temp Pulse Resp B/P (MAP) Pulse Ox O2 Delivery O2 Flow Rate FiO2 07/06/19 12:42 98 Ventilator 07/06/19 12:00 101.1 81 20 111/67 (82) 101.1 I&O Intake and Output 07/06/19 07:00 Intake Total 3605 ml Output Total 4642 ml Balance -1037 ml IV Total 3605 ml Output Urine Total 4040 ml Drainage Total 602 ml PATIENT HAS A LEPE: Yes Abdomen: Other (distended, dressings/drains in place) Labs Laboratory Tests Test 07/04/19 14:03 07/04/19 18:38 07/04/19 21:08 07/04/19 23:53 Glucose (Fingerstick) 228 mg/dL (70-99) 220 mg/dL (70-99) 184 mg/dL (70-99) 213 mg/dL (70-99) Test 07/05/19 06:10 07/05/19 07:30 07/05/19 08:43 07/05/19 11:35 Glucose (Fingerstick) 154 mg/dL (70-99) 139 mg/dL (70-99) O2 Saturation 97 % (92-99) Arterial Blood pH 7.42 (7.35-7.45) Arterial Blood pCO2 at Patient Temp 41 mmHg (35-46) Arterial Blood pO2 at Patient Temp 98 mmHg (75-108) Arterial Blood HCO3 26 mmol/L (21-28) Arterial Blood Base Excess 1 mmol/L (-3-3) FiO2 40% Triglycerides Level 1170 mg/dL (0-150) Test 07/05/19 12:01 07/05/19 18:43 07/05/19 20:54 07/06/19 00:14 Glucose (Fingerstick) 168 mg/dL (70-99) 141 mg/dL (70-99) 146 mg/dL (70-99) 173 mg/dL (70-99) Test 07/06/19 05:58 07/06/19 07:15 07/06/19 08:00 07/06/19 12:23 Glucose (Fingerstick) 155 mg/dL (70-99) 195 mg/dL (70-99) White Blood Count 13.9 x10^3/uL (4.0-11.0) Red Blood Count 2.44 x10^6/uL (4.30-5.70) Hemoglobin 7.0 g/dL (13.0-17.5) Hematocrit 22.7 % (39.0-53.0) Mean Corpuscular Volume 93 fL (79-100) Mean Corpuscular Hemoglobin 29 pg (25-35) Mean Corpuscular Hemoglobin Concent 31 g/dL (31-37) Red Cell Distribution Width 15.4 % (11.5-14.5) Platelet Count 478 x10^3/uL (140-400) Neutrophils (%) (Auto) 81 % (31-73) Lymphocytes (%) (Auto) 8 % (24-48) Monocytes (%) (Auto) 9 % (0-9) Eosinophils (%) (Auto) 1 % (0-3) Basophils (%) (Auto) 1 % (0-3) Neutrophils # (Auto) 11.3 x10^3/uL (1.8-7.7) Lymphocytes # (Auto) 1.1 x10^3/uL (1.0-4.8) Monocytes # (Auto) 1.3 x10^3/uL (0.0-1.1) Eosinophils # (Auto) 0.1 x10^3/uL (0.0-0.7) Basophils # (Auto) 0.1 x10^3/uL (0.0-0.2) O2 Saturation 96 % (92-99) Arterial Blood pH 7.45 (7.35-7.45) Arterial Blood pCO2 at Patient Temp 40 mmHg (35-46) Arterial Blood pO2 at Patient Temp 89 mmHg (75-108) Arterial Blood HCO3 27 mmol/L (21-28) Arterial Blood Base Excess 3 mmol/L (-3-3) FiO2 40 Laboratory Tests Test 07/05/19 18:43 07/05/19 20:54 07/06/19 00:14 07/06/19 05:58 Glucose (Fingerstick) 141 mg/dL (70-99) 146 mg/dL (70-99) 173 mg/dL (70-99) 155 mg/dL (70-99) Test 07/06/19 07:15 07/06/19 08:00 07/06/19 12:23 White Blood Count 13.9 x10^3/uL (4.0-11.0) Red Blood Count 2.44 x10^6/uL (4.30-5.70) Hemoglobin 7.0 g/dL (13.0-17.5) Hematocrit 22.7 % (39.0-53.0) Mean Corpuscular Volume 93 fL (79-100) Mean Corpuscular Hemoglobin 29 pg (25-35) Mean Corpuscular Hemoglobin Concent 31 g/dL (31-37) Red Cell Distribution Width 15.4 % (11.5-14.5) Platelet Count 478 x10^3/uL (140-400) Neutrophils (%) (Auto) 81 % (31-73) Lymphocytes (%) (Auto) 8 % (24-48) Monocytes (%) (Auto) 9 % (0-9) Eosinophils (%) (Auto) 1 % (0-3) Basophils (%) (Auto) 1 % (0-3) Neutrophils # (Auto) 11.3 x10^3/uL (1.8-7.7) Lymphocytes # (Auto) 1.1 x10^3/uL (1.0-4.8) Monocytes # (Auto) 1.3 x10^3/uL (0.0-1.1) Eosinophils # (Auto) 0.1 x10^3/uL (0.0-0.7) Basophils # (Auto) 0.1 x10^3/uL (0.0-0.2) O2 Saturation 96 % (92-99) Arterial Blood pH 7.45 (7.35-7.45) Arterial Blood pCO2 at Patient Temp 40 mmHg (35-46) Arterial Blood pO2 at Patient Temp 89 mmHg (75-108) Arterial Blood HCO3 27 mmol/L (21-28) Arterial Blood Base Excess 3 mmol/L (-3-3) FiO2 40 Glucose (Fingerstick) 195 mg/dL (70-99) Hb noted one unit PRBC's ordered by [facility] Problem List Problems Medical Problems: (1) Acute pancreatitis Status: Acute (2) Nausea & vomiting Status: Acute Assessment/Plan s/p pancreaticnecrostomy ARF resolved ventilator dependent continue supportive treatment will review CT with Dr Dawson when he is back tomorrow WILL BEJARANO MD Jul 06, 2019 13:11
--- NOTE | 2019-07-06 13:21 | PDOC ---
Infectious Disease Note Subjective Subjective Ongoing fevers Tmax 101.8 core Sedated Trach/vent, FiO2 40% TPN ROS ROS unobtainable Vital Sign Vital Signs Vital Signs Date Time Temp Pulse Resp B/P (MAP) Pulse Ox O2 Delivery O2 Flow Rate FiO2 07/06/19 12:42 98 Ventilator 07/06/19 12:00 101.1 81 20 111/67 (82) 101.1 Physical Exam PHYSICAL EXAM GENERAL: Sedated, trached/vent HEENT: Pupils equal reactive NECK: Trach/vent LUNGS: Diminished aeration bases HEART: S1, S2, regular, no murmurs. ABDOMEN: Distended, fairly tight, bowel sounds quiet, drains x5, wound vac in place : [place] in place 2 plus edema EXTREMITIES: 1+ edema, no cyanosis. SCDs bilaterally SKIN: Warm, dry. 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 R&D ENGINEER: Sedated RT PICC line clean ( 07/01) Labs Lab Laboratory Tests Test 07/05/19 18:43 07/05/19 20:54 07/06/19 00:14 07/06/19 05:58 Glucose (Fingerstick) 141 mg/dL (70-99) 146 mg/dL (70-99) 173 mg/dL (70-99) 155 mg/dL (70-99) Test 07/06/19 07:15 07/06/19 08:00 07/06/19 12:23 White Blood Count 13.9 x10^3/uL (4.0-11.0) Red Blood Count 2.44 x10^6/uL (4.30-5.70) Hemoglobin 7.0 g/dL (13.0-17.5) Hematocrit 22.7 % (39.0-53.0) Mean Corpuscular Volume 93 fL (79-100) Mean Corpuscular Hemoglobin 29 pg (25-35) Mean Corpuscular Hemoglobin Concent 31 g/dL (31-37) Red Cell Distribution Width 15.4 % (11.5-14.5) Platelet Count 478 x10^3/uL (140-400) Neutrophils (%) (Auto) 81 % (31-73) Lymphocytes (%) (Auto) 8 % (24-48) Monocytes (%) (Auto) 9 % (0-9) Eosinophils (%) (Auto) 1 % (0-3) Basophils (%) (Auto) 1 % (0-3) Neutrophils # (Auto) 11.3 x10^3/uL (1.8-7.7) Lymphocytes # (Auto) 1.1 x10^3/uL (1.0-4.8) Monocytes # (Auto) 1.3 x10^3/uL (0.0-1.1) Eosinophils # (Auto) 0.1 x10^3/uL (0.0-0.7) Basophils # (Auto) 0.1 x10^3/uL (0.0-0.2) O2 Saturation 96 % (92-99) Arterial Blood pH 7.45 (7.35-7.45) Arterial Blood pCO2 at Patient Temp 40 mmHg (35-46) Arterial Blood pO2 at Patient Temp 89 mmHg (75-108) Arterial Blood HCO3 27 mmol/L (21-28) Arterial Blood Base Excess 3 mmol/L (-3-3) FiO2 40 Glucose (Fingerstick) 195 mg/dL (70-99) Micro 07/03. BLOOD CULTURE Preliminary NO GROWTH AFTER 2 DAYS SPUTUM CULT RES 1 Final Yeast isolated. Objective Assessment Fever ? pancreatitis/abd distension/pleural effusion/occlusive clot in cephalic Leukocytosis Gallbladder stone pancreatitis s/p expl lap, pancreatic necrosectomy, cholecystostomy tube placement, G-tube placement with jejunal extension, 06/21 -gastrostomy tube repositioned by IR 07/03 per nursing - d/w Dr. Mcdonough Intra-abd fluid collections Sepsis from GI - cult neg Acute Resp failure - s/p trach 06/21, vent dependent Lactic acidosis. Acute kidney injury previously requiring dialysis - now with improved UOP, HDC now out Metabolic acidosis. Hypocalcemia Right arm swelling, + occlusive thrombosis within the cephalic vein, no DVT on US Plan Plan of Care Continue merrem, micafungin (06/19) cont daptomycin ( 07/02); restart Zyvox (07/03) ( better lung penetration) Pancultures (07/03) neg so far Maintain aspiration precaution. Gen surgery following Await pulm eval. ? if fluid can be drawn off left side based on CT D/w nursing Critically ill May need line changed CBC in am Repeat Blood cults Await Pulm F/u 07/06 D/c Meropenem and start Cefepim/Flagyl D/w nursing Attending Co-Sign Attending Co-Sign The patient was seen and interviewed as well as examined at the bedside. The chart was reviewed. The case was discussed. Agree with the plan of care. TANVI GORE APRN Jul 06, 2019 13:21 LE CROWLEY MD Jul 06, 2019 15:01
--- NOTE | 2019-07-06 14:20 | NUR ---
Pharmacy TPN Dosing Note S: CHRISTOPHER NEWSOME is a 49 year old M Currently receiving Central Continuous TPN started 06/19/19 B:Pertinent PMH: PANCREATITIS Height: 5 feet, 9 inches Weight: 108.0 kg Current diet: NPO LABS: Sodium: 148 Potassium: 3.7 Chloride: 110 Calcium: 8.2 Corrected Calcium: 10.60 Magnesium: 2 CO2: 29 SCr: 1.1 Glucose: 164 Albumin: 1.0 AST: 62 ALT: 62 TPN FORMULA: TPN TYPE: Central Continuous AMINO ACIDS: 145 gm DEXTROSE: 200 gm LIPIDS: - gm SODIUM CHLORIDE: mEq SODIUM ACETATE: mEq SODIUM PHOSPHATE: - mmol POTASSIUM CHLORIDE: mEq POTASSIUM ACETATE: 10 mEq POTASSIUM PHOSPHATE: 10 mmol MAGNESIUM: 5 mEq CALCIUM: 15 mEq INSULIN: - units MULTIPLE VITAMIN: 10 ml TRACE ELEMENTS: 0.5 ml(s) TPN PLAN: NO CHANGES IN TPN, BMP/MAG/PHOS SUNDAY. R: Continue TPN at 63ml/hr Will monitor electrolytes, glucose, and tolerance to TPN. JOSE CORRIGAN [facility], 07/06/19 [id number]
[2019-07-06] MEDS: fentaNYL HIGH DOSE PCA 55 ML IV PRN (17:36)
[2019-07-06] MEDS: IV NORMAL SALINE 1000ML BAG 1,000 ML IV SCH ×2 (21:53→21:55)
[2019-07-06] MEDS ORDERED: [UNRECOGNIZED DRUG - OTHER] IV SCH ×8 (22:00)
[2019-07-06] MEDS ORDERED: AMINO ACID IV SCH ×8 (22:00)
[2019-07-06] MEDS ORDERED: TOTAL PARENTERAL NUTRITION IV SCH ×8 (22:00)
[2019-07-06] MEDS ORDERED: DEXTROSE 70% IV SCH ×8 (22:00)
[2019-07-06] MEDS: CEFEPIME HCL IV Push 2 GM VIAL. IVP SCH (22:51)
[2019-07-07] VITALS (24 sets, daily range): BP systolic 91–154; BP diastolic 60–97
[2019-07-07] MEDS: DEXMEDETOMIDINE 400 MCG in IV NORMAL SALINE 100ML 96 ML IV PRN ×7 (01:13→18:06)
[2019-07-07] MEDS: MIDAZOLAM HCL 50 MG in IV NORMAL SALINE 50ML 50 ML IV PRN ×4 (03:24→22:06)
[2019-07-07] MEDS: CEFEPIME HCL IV Push 2 GM VIAL. IVP SCH ×3 (05:59→21:51)
[2019-07-07] MEDS: PANTOPRAZOLE IV PUSH 40 MG VIAL. IVP SCH ×2 (06:16→18:06)
[2019-07-07] MEDS: ENOXAPARIN 40 MG/0.4 ML SYRINGE. SQ SCH (06:17)
[2019-07-07] MEDS: INSULIN LISPRO 300 UNITS/3 ML VIAL. SQ SCH ×5 (06:19→23:55)
[2019-07-07 07:01] LABS: BASO # 0.1 x10^3/uL (0.0-0.2); BASO % 1 % (0-3); EOS # 0.1 x10^3/uL (0.0-0.7); EOS % 1 % (0-3); HEMATOCRIT 25.5 % (39.0-53.0); HEMOGLOBIN 8.3 g/dL (13.0-17.5); LYMPH # 1.2 x10^3/uL (1.0-4.8); LYMPH % 9 % (24-48); MEAN CORPUSCULAR HEMOGLOBIN 29 pg (25-35); MEAN CORPUSCULAR HGB CONC 32 g/dL (31-37); MEAN CORPUSCULAR VOLUME 90 fL (79-100); MONO # 1.1 x10^3/uL (0.0-1.1); MONO % 8 % (0-9); NEUT # 11.2 x10^3/uL (1.8-7.7); NEUT % 82 % (31-73); PLATELET COUNT 515 x10^3/uL (140-400); RED BLOOD COUNT 2.84 x10^6/uL (4.30-5.70); RED CELL DISTRIBUTION WIDTH 14.7 % (11.5-14.5); WHITE BLOOD COUNT 13.6 x10^3/uL (4.0-11.0)
[2019-07-07 07:08] LABS: CALCIUM 8.3 mg/dL (8.5-10.1); CREATININE 0.9 mg/dL (0.7-1.3); GFR 108.5; MAGNESIUM 1.8 mg/dL (1.8-2.4); PHOSPHORUS 3.3 mg/dL (2.6-4.7); POTASSIUM 4.3 mmol/L (3.5-5.1)
[2019-07-07] MEDS: INSULIN GLARGINE SYRINGE. SQ SCH ×2 (08:16→21:08)
[2019-07-07] MEDS: MICAFUNGIN 100 MG in IV DEXTROSE 5% 100ML 100 ML IV SCH (08:19)
[2019-07-07] MEDS: ALBUTEROL SULFATE 2.5 MG/3 ML NEBU. NEB SCH ×4 (08:19→20:35)
[2019-07-07] MEDS: FUROSEMIDE 40 MG/4 ML VIAL. IVP SCH (08:25)
--- NOTE | 2019-07-07 08:29 | PDOC ---
PULMONARY PROGRESS NOTES Subjective on vent, sedated, on versed, precedex, fentanyl, small trach secretion, t max 101.8 Vitals Vital Signs Date Time Temp Pulse Resp B/P (MAP) Pulse Ox O2 Delivery O2 Flow Rate FiO2 07/07/19 08:19 99 Ventilator 07/07/19 06:00 100.2 76 20 111/66 (81) 100.2 07/06/19 21:32 3.0 Comments ros unable to obtain sedated on vent HEENT: Other (nc at perrl nose clear, neck, trach site ok, no lad, no thyromegaly) Lungs: Crackles Cardiovascular: S1, S2 Abdomen: Other (/distended/firm ) Extremities: No Edema Skin: Warm Labs Laboratory Tests Test 07/05/19 08:43 07/05/19 11:35 07/05/19 12:01 07/05/19 18:43 Glucose (Fingerstick) 139 mg/dL (70-99) 168 mg/dL (70-99) 141 mg/dL (70-99) Triglycerides Level 1170 mg/dL (0-150) Test 07/05/19 20:54 07/06/19 00:14 07/06/19 05:58 07/06/19 07:15 Glucose (Fingerstick) 146 mg/dL (70-99) 173 mg/dL (70-99) 155 mg/dL (70-99) White Blood Count 13.9 x10^3/uL (4.0-11.0) Red Blood Count 2.44 x10^6/uL (4.30-5.70) Hemoglobin 7.0 g/dL (13.0-17.5) Hematocrit 22.7 % (39.0-53.0) Mean Corpuscular Volume 93 fL (79-100) Mean Corpuscular Hemoglobin 29 pg (25-35) Mean Corpuscular Hemoglobin Concent 31 g/dL (31-37) Red Cell Distribution Width 15.4 % (11.5-14.5) Platelet Count 478 x10^3/uL (140-400) Neutrophils (%) (Auto) 81 % (31-73) Lymphocytes (%) (Auto) 8 % (24-48) Monocytes (%) (Auto) 9 % (0-9) Eosinophils (%) (Auto) 1 % (0-3) Basophils (%) (Auto) 1 % (0-3) Neutrophils # (Auto) 11.3 x10^3/uL (1.8-7.7) Lymphocytes # (Auto) 1.1 x10^3/uL (1.0-4.8) Monocytes # (Auto) 1.3 x10^3/uL (0.0-1.1) Eosinophils # (Auto) 0.1 x10^3/uL (0.0-0.7) Basophils # (Auto) 0.1 x10^3/uL (0.0-0.2) Test 07/06/19 08:00 07/06/19 12:23 07/06/19 17:47 07/07/19 01:01 O2 Saturation 96 % (92-99) Arterial Blood pH 7.45 (7.35-7.45) Arterial Blood pCO2 at Patient Temp 40 mmHg (35-46) Arterial Blood pO2 at Patient Temp 89 mmHg (75-108) Arterial Blood HCO3 27 mmol/L (21-28) Arterial Blood Base Excess 3 mmol/L (-3-3) FiO2 40 Glucose (Fingerstick) 195 mg/dL (70-99) 156 mg/dL (70-99) 212 mg/dL (70-99) Test 07/07/19 06:04 07/07/19 06:10 Glucose (Fingerstick) 194 mg/dL (70-99) White Blood Count 13.6 x10^3/uL (4.0-11.0) Red Blood Count 2.84 x10^6/uL (4.30-5.70) Hemoglobin 8.3 g/dL (13.0-17.5) Hematocrit 25.5 % (39.0-53.0) Mean Corpuscular Volume 90 fL (79-100) Mean Corpuscular Hemoglobin 29 pg (25-35) Mean Corpuscular Hemoglobin Concent 32 g/dL (31-37) Red Cell Distribution Width 14.7 % (11.5-14.5) Platelet Count 515 x10^3/uL (140-400) Neutrophils (%) (Auto) 82 % (31-73) Lymphocytes (%) (Auto) 9 % (24-48) Monocytes (%) (Auto) 8 % (0-9) Eosinophils (%) (Auto) 1 % (0-3) Basophils (%) (Auto) 1 % (0-3) Neutrophils # (Auto) 11.2 x10^3/uL (1.8-7.7) Lymphocytes # (Auto) 1.2 x10^3/uL (1.0-4.8) Monocytes # (Auto) 1.1 x10^3/uL (0.0-1.1) Eosinophils # (Auto) 0.1 x10^3/uL (0.0-0.7) Basophils # (Auto) 0.1 x10^3/uL (0.0-0.2) Sodium Level 146 mmol/L (136-145) Potassium Level 4.3 mmol/L (3.5-5.1) Chloride Level 111 mmol/L (98-107) Carbon Dioxide Level 28 mmol/L (21-32) Anion Gap 7 (6-14) Blood Urea Nitrogen 39 mg/dL (8-26) Creatinine 0.9 mg/dL (0.7-1.3) Estimated GFR (Cockcroft-Gault) 108.5 Glucose Level 213 mg/dL (70-99) Calcium Level 8.3 mg/dL (8.5-10.1) Phosphorus Level 3.3 mg/dL (2.6-4.7) Magnesium Level 1.8 mg/dL (1.8-2.4) Laboratory Tests Test 07/06/19 12:23 07/06/19 17:47 07/07/19 01:01 07/07/19 06:04 Glucose (Fingerstick) 195 mg/dL (70-99) 156 mg/dL (70-99) 212 mg/dL (70-99) 194 mg/dL (70-99) Test 07/07/19 06:10 White Blood Count 13.6 x10^3/uL (4.0-11.0) Red Blood Count 2.84 x10^6/uL (4.30-5.70) Hemoglobin 8.3 g/dL (13.0-17.5) Hematocrit 25.5 % (39.0-53.0) Mean Corpuscular Volume 90 fL (79-100) Mean Corpuscular Hemoglobin 29 pg (25-35) Mean Corpuscular Hemoglobin Concent 32 g/dL (31-37) Red Cell Distribution Width 14.7 % (11.5-14.5) Platelet Count 515 x10^3/uL (140-400) Neutrophils (%) (Auto) 82 % (31-73) Lymphocytes (%) (Auto) 9 % (24-48) Monocytes (%) (Auto) 8 % (0-9) Eosinophils (%) (Auto) 1 % (0-3) Basophils (%) (Auto) 1 % (0-3) Neutrophils # (Auto) 11.2 x10^3/uL (1.8-7.7) Lymphocytes # (Auto) 1.2 x10^3/uL (1.0-4.8) Monocytes # (Auto) 1.1 x10^3/uL (0.0-1.1) Eosinophils # (Auto) 0.1 x10^3/uL (0.0-0.7) Basophils # (Auto) 0.1 x10^3/uL (0.0-0.2) Sodium Level 146 mmol/L (136-145) Potassium Level 4.3 mmol/L (3.5-5.1) Chloride Level 111 mmol/L (98-107) Carbon Dioxide Level 28 mmol/L (21-32) Anion Gap 7 (6-14) Blood Urea Nitrogen 39 mg/dL (8-26) Creatinine 0.9 mg/dL (0.7-1.3) Estimated GFR (Cockcroft-Gault) 108.5 Glucose Level 213 mg/dL (70-99) Calcium Level 8.3 mg/dL (8.5-10.1) Phosphorus Level 3.3 mg/dL (2.6-4.7) Magnesium Level 1.8 mg/dL (1.8-2.4) Medications Active Scripts Medications Dose Route/Sig Max Daily Dose Days Date Category Comments CXR reviewed Stable bibasilar pulmonary infiltrates and small left pleural effusion. ct of chest and abd 1. Redemonstrated sequela of necrotic pancreatitis. As before there is extensive mesenteric edema but the volume of free abdominopelvic fluid has decreased. Edematous enlargement of the pancreas has slightly decreased. A fluid collection along the undersurface of the stomach has decreased in size, as detailed above. A loculated appearing fluid collection within the mid abdomen anterior to the IVC and aorta (image 55 series 4) measures similar to the prior. Ill-defined area of hypoattenuation involving the mid pancreatic body is slightly more conspicuous from the prior (image 37 series 4). It is uncertain if this represents evolving parenchymal necrosis or a developing fluid collection as assessment is limited without intravenous contrast. No air and fluid containing collection seen to suggest an abscess but note is made that the sterility of the aforementioned fluid collections is indeterminate by the imaging appearance alone. 2. Extensive reactive inflammatory changes of the abdominopelvic organs. No findings of bowel obstruction. 3. A gastrostomy tube has been placed in the interim. The tube tip is not within the stomach and is seen at the distal end of the surgical tract just deep to the ventral body wall musculature - sagittal images 35 and 36 series 9. 4. Three abdominal drains. No discrete fluid collection surrounding the tips of these drains. Cholecystostomy tube, ET tube, enteric tube, [place] and right PICC are appropriately positioned. 5. Partial collapse of the left more so than right lower lobes. Moderate-sized left pleural effusion with overlying atelectasis. No infiltrate typical of an organizing pneumonia identified. Impression . IMPRESSION: 1. Acute hypoxemic respiratory failure, multifactorial. 2. Acute gallstone pancreatitis./ Necrosis. s/p Exploratory laparotomy, pancreatic necrosectomy, cholecystostomy tube placement, Gastrostomy placement with jejunal extension, tracheostomy placement (specifically 8 shiley cuffed) 3/8 3. Acute kidney failure. improving 4. Metabolic toxic encephalopathy. 5. Hyperkalemia.corrected 6. Metabolic / respiratory acidosis 7. Hypocalcemia. 8. POSSIBLE ABD COMPARTMENT SYNDROME , s/p Exp lap 9. HEP B S POSITIVE 10. Hypernatremia, resolved 11. LLL small effusion, monitor 12. FEVER PER ID Plan . cont vent support setting reviewed, didnt tolerate weaning TG 1100, propofol changed to versed, avoid over sedation CT C/A/P reviewed per surgery, left pleural effusion is small, most of it is atelectasis, doubt enough fluid for thoracentesis, will discuss w dr chapman lovenox protonix for prophylaxis ANTI BX PER ID FOLLOW SURGERY INPUT discussed w DESTINI Nesbitt MD Jul 07, 2019 08:29
[2019-07-07 08:48] LABS: BASE EXCESS ABG 2 mmol/L (-3-3); FIO2 ABG 40; HCO3 ABG 27 mmol/L (21-28); PCO2 ABG 42 mmHg (35-46); PO2 ABG 92 mmHg (75-108); SAT O2 ABG 96 % (92-99)
--- NOTE | 2019-07-07 09:16 | RAD ---
Replacement of gastrostomy tube through pre-existing tract INDICATION: Inadvertent removal discussion: The risks and benefits of the procedure were discussed the patient's senior account representative. Informed consent was obtained. Timeout procedure was performed. Review of recent CT demonstrates retraction of the pre-existing gastrostomy tube, within the subcutaneous fat. The anterior abdomen was prepped and draped using sterile barrier technique. The pre-existing catheter was trimmed, and a guidewire advanced, into the stomach. Catheter was advanced into the stomach. Catheter position was confirmed with administration of 6 air contrast. A guidewire was advanced into the stomach over which, a new 20 Faroese gastrostomy tube was placed. The retention balloon was inflated. The catheter secured in place. No immediate complications were identified. Total fluoroscopy time: 2.4 minutes Dose area product:62 Gycm2 Impression: replacement of G tube through pre-existing tract.
--- NOTE | 2019-07-07 09:25 | PDOC ---
Infectious Disease Note Subjective Subjective Lower core temps Sedated Trach/vent, FiO2 40% TPN Vital Sign Vital Signs Vital Signs Date Time Temp Pulse Resp B/P (MAP) Pulse Ox O2 Delivery O2 Flow Rate FiO2 07/07/19 08:19 99 Ventilator 07/07/19 08:00 99.7 75 20 102/73 (83) 99.7 07/06/19 21:32 3.0 Physical Exam PHYSICAL EXAM GENERAL: Sedated, trached/vent - opens eyes HEENT: Pupils equal reactive NECK: Trach/vent LUNGS: Diminished aeration bases HEART: S1, S2, regular, no murmurs. ABDOMEN: Distended, fairly tight, bowel sounds quiet, drains x5, wound vac in place : [place] in place 2 plus edema EXTREMITIES: 1+ - 2 edema, no cyanosis. SCDs bilaterally SKIN: Warm, dry. 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 HOSE COUPLING JOINER: Sedated RT PICC line clean (07/01) Labs Lab Laboratory Tests Test 07/06/19 12:23 07/06/19 17:47 07/07/19 01:01 07/07/19 06:04 Glucose (Fingerstick) 195 mg/dL (70-99) 156 mg/dL (70-99) 212 mg/dL (70-99) 194 mg/dL (70-99) Test 07/07/19 06:10 07/07/19 08:30 White Blood Count 13.6 x10^3/uL (4.0-11.0) Red Blood Count 2.84 x10^6/uL (4.30-5.70) Hemoglobin 8.3 g/dL (13.0-17.5) Hematocrit 25.5 % (39.0-53.0) Mean Corpuscular Volume 90 fL (79-100) Mean Corpuscular Hemoglobin 29 pg (25-35) Mean Corpuscular Hemoglobin Concent 32 g/dL (31-37) Red Cell Distribution Width 14.7 % (11.5-14.5) Platelet Count 515 x10^3/uL (140-400) Neutrophils (%) (Auto) 82 % (31-73) Lymphocytes (%) (Auto) 9 % (24-48) Monocytes (%) (Auto) 8 % (0-9) Eosinophils (%) (Auto) 1 % (0-3) Basophils (%) (Auto) 1 % (0-3) Neutrophils # (Auto) 11.2 x10^3/uL (1.8-7.7) Lymphocytes # (Auto) 1.2 x10^3/uL (1.0-4.8) Monocytes # (Auto) 1.1 x10^3/uL (0.0-1.1) Eosinophils # (Auto) 0.1 x10^3/uL (0.0-0.7) Basophils # (Auto) 0.1 x10^3/uL (0.0-0.2) Sodium Level 146 mmol/L (136-145) Potassium Level 4.3 mmol/L (3.5-5.1) Chloride Level 111 mmol/L (98-107) Carbon Dioxide Level 28 mmol/L (21-32) Anion Gap 7 (6-14) Blood Urea Nitrogen 39 mg/dL (8-26) Creatinine 0.9 mg/dL (0.7-1.3) Estimated GFR (Cockcroft-Gault) 108.5 Glucose Level 213 mg/dL (70-99) Calcium Level 8.3 mg/dL (8.5-10.1) Phosphorus Level 3.3 mg/dL (2.6-4.7) Magnesium Level 1.8 mg/dL (1.8-2.4) O2 Saturation 96 % (92-99) Arterial Blood pH 7.42 (7.35-7.45) Arterial Blood pCO2 at Patient Temp 42 mmHg (35-46) Arterial Blood pO2 at Patient Temp 92 mmHg (75-108) Arterial Blood HCO3 27 mmol/L (21-28) Arterial Blood Base Excess 2 mmol/L (-3-3) FiO2 [address] 3/2 Lower chest: Moderate left and small right pleural effusions with adjacent atelectasis. Abdomen and pelvis: Severe findings of pancreatitis. Diffuse hypoattenuation of the pancreas, concerning for necrosis. Evaluation degraded without IV contrast. Fluid collection along the inferior aspect of the stomach measures 9.6 x 4.0 cm. Loculated fluid collection along the anterior aspect of the pancreas measures 3.0 x 2.6 cm. Severe inflammatory changes extending inferiorly. Small perihepatic free fluid. Bilateral perinephric inflammatory changes. Cholelithiasis. The liver, spleen, adrenal glands and kidneys are unremarkable noncontrast appearance. No hydronephrosis. Regions of colonic wall thickening, likely reactive. Normal appendix. Enteric tube within the stomach. No evidence of small bowel obstruction. Duodenal proximal jejunal wall thickening, likely reactive. Multiple enlarged mesenteric lymph nodes.. Catheter within the urinary bladder. Mild body wall edema. Impression: 1. Increased severe pancreatitis with extensive inflammatory changes and hypoattenuation of the pancreas, concerning for necrosis although evaluation degraded without IV contrast. 2. New fluid collection along the inferior aspect of the stomach and anterior aspect of the pancreas. 3. Increased multifocal colonic and small bowel wall thickening, likely reactive. 4. New small perihepatic free fluid. 5. Cholelithiasis. 6. Mesenteric lymphadenopathy, likely reactive. 7. Moderate left and small right pleural effusion with adjacent atelectasis. Microbiology 06/14/19 Blood Culture - Preliminary, Resulted NO GROWTH AFTER 1 DAY Objective Assessment Fever - core temps better ? pancreatitis/abd distension/pleural effusion/occlusive clot in cephalic Leukocytosis - stable despite PRBCs S/p PRBCs 07/05 Gallbladder stone pancreatitis s/p expl lap, pancreatic necrosectomy, cholecystostomy tube placement, G-tube placement with jejunal extension, 06/21 -gastrostomy tube repositioned by IR 07/03 per nursing - d/w Dr. Mcdonough Intra-abd fluid collections Sepsis from GI - cult neg Acute Resp failure - s/p trach 06/21, vent dependent Lactic acidosis. Acute kidney injury previously requiring dialysis - now with improved UOP, HDC now out Metabolic acidosis. Hypocalcemia Right arm swelling, + occlusive thrombosis within the cephalic vein, no DVT on US Plan Plan of Care May need line changed if fever worsens CBC in am Repeat Blood cults - pending 07/05 Await Pulm F/u re CT ? if fluid can be drawn off left side based on CT D/c'd Meropenem and started Cefepime/Flagyl 07/05 Discontinue micafungin - try to taper some meds (06/19 - 07/06) Cont daptomycin ( 07/02); restarted Zyvox (07/03) ( better lung penetration) Labs in am Pancultures (07/03) neg so far Maintain aspiration precaution. Gen surgery following D/w nursing Critically ill LE CROWLEY MD Jul 07, 2019 09:25
--- NOTE | 2019-07-07 09:35 | PDOC ---
SURGICAL PROGRESS NOTE Subjective vent support Vital Signs Vital Signs Date Time Temp Pulse Resp B/P (MAP) Pulse Ox O2 Delivery O2 Flow Rate FiO2 07/07/19 08:19 99 Ventilator 07/07/19 08:00 99.7 75 20 102/73 (83) 99.7 07/06/19 21:32 3.0 I&O Intake and Output 07/07/19 07:00 Intake Total 2357 ml Output Total 3865 ml Balance -1508 ml IV Total 2002 ml Blood Product IV Normal Saline Flush 355 ml Output Urine Total 3500 ml Drainage Total 365 ml PATIENT HAS A LEPE: Yes Abdomen: Soft, Other (vac in place, drains in place) Labs Laboratory Tests Test 07/05/19 11:35 07/05/19 12:01 07/05/19 18:43 07/05/19 20:54 Triglycerides Level 1170 mg/dL (0-150) Glucose (Fingerstick) 168 mg/dL (70-99) 141 mg/dL (70-99) 146 mg/dL (70-99) Test 07/06/19 00:14 07/06/19 05:58 07/06/19 07:15 07/06/19 08:00 Glucose (Fingerstick) 173 mg/dL (70-99) 155 mg/dL (70-99) White Blood Count 13.9 x10^3/uL (4.0-11.0) Red Blood Count 2.44 x10^6/uL (4.30-5.70) Hemoglobin 7.0 g/dL (13.0-17.5) Hematocrit 22.7 % (39.0-53.0) Mean Corpuscular Volume 93 fL (79-100) Mean Corpuscular Hemoglobin 29 pg (25-35) Mean Corpuscular Hemoglobin Concent 31 g/dL (31-37) Red Cell Distribution Width 15.4 % (11.5-14.5) Platelet Count 478 x10^3/uL (140-400) Neutrophils (%) (Auto) 81 % (31-73) Lymphocytes (%) (Auto) 8 % (24-48) Monocytes (%) (Auto) 9 % (0-9) Eosinophils (%) (Auto) 1 % (0-3) Basophils (%) (Auto) 1 % (0-3) Neutrophils # (Auto) 11.3 x10^3/uL (1.8-7.7) Lymphocytes # (Auto) 1.1 x10^3/uL (1.0-4.8) Monocytes # (Auto) 1.3 x10^3/uL (0.0-1.1) Eosinophils # (Auto) 0.1 x10^3/uL (0.0-0.7) Basophils # (Auto) 0.1 x10^3/uL (0.0-0.2) O2 Saturation 96 % (92-99) Arterial Blood pH 7.45 (7.35-7.45) Arterial Blood pCO2 at Patient Temp 40 mmHg (35-46) Arterial Blood pO2 at Patient Temp 89 mmHg (75-108) Arterial Blood HCO3 27 mmol/L (21-28) Arterial Blood Base Excess 3 mmol/L (-3-3) FiO2 40 Test 07/06/19 12:23 07/06/19 17:47 07/07/19 01:01 07/07/19 06:04 Glucose (Fingerstick) 195 mg/dL (70-99) 156 mg/dL (70-99) 212 mg/dL (70-99) 194 mg/dL (70-99) Test 07/07/19 06:10 07/07/19 08:30 White Blood Count 13.6 x10^3/uL (4.0-11.0) Red Blood Count 2.84 x10^6/uL (4.30-5.70) Hemoglobin 8.3 g/dL (13.0-17.5) Hematocrit 25.5 % (39.0-53.0) Mean Corpuscular Volume 90 fL (79-100) Mean Corpuscular Hemoglobin 29 pg (25-35) Mean Corpuscular Hemoglobin Concent 32 g/dL (31-37) Red Cell Distribution Width 14.7 % (11.5-14.5) Platelet Count 515 x10^3/uL (140-400) Neutrophils (%) (Auto) 82 % (31-73) Lymphocytes (%) (Auto) 9 % (24-48) Monocytes (%) (Auto) 8 % (0-9) Eosinophils (%) (Auto) 1 % (0-3) Basophils (%) (Auto) 1 % (0-3) Neutrophils # (Auto) 11.2 x10^3/uL (1.8-7.7) Lymphocytes # (Auto) 1.2 x10^3/uL (1.0-4.8) Monocytes # (Auto) 1.1 x10^3/uL (0.0-1.1) Eosinophils # (Auto) 0.1 x10^3/uL (0.0-0.7) Basophils # (Auto) 0.1 x10^3/uL (0.0-0.2) Sodium Level 146 mmol/L (136-145) Potassium Level 4.3 mmol/L (3.5-5.1) Chloride Level 111 mmol/L (98-107) Carbon Dioxide Level 28 mmol/L (21-32) Anion Gap 7 (6-14) Blood Urea Nitrogen 39 mg/dL (8-26) Creatinine 0.9 mg/dL (0.7-1.3) Estimated GFR (Cockcroft-Gault) 108.5 Glucose Level 213 mg/dL (70-99) Calcium Level 8.3 mg/dL (8.5-10.1) Phosphorus Level 3.3 mg/dL (2.6-4.7) Magnesium Level 1.8 mg/dL (1.8-2.4) O2 Saturation 96 % (92-99) Arterial Blood pH 7.42 (7.35-7.45) Arterial Blood pCO2 at Patient Temp 42 mmHg (35-46) Arterial Blood pO2 at Patient Temp 92 mmHg (75-108) Arterial Blood HCO3 27 mmol/L (21-28) Arterial Blood Base Excess 2 mmol/L (-3-3) FiO2 40 Laboratory Tests Test 07/06/19 12:23 07/06/19 17:47 07/07/19 01:01 07/07/19 06:04 Glucose (Fingerstick) 195 mg/dL (70-99) 156 mg/dL (70-99) 212 mg/dL (70-99) 194 mg/dL (70-99) Test 07/07/19 06:10 07/07/19 08:30 White Blood Count 13.6 x10^3/uL (4.0-11.0) Red Blood Count 2.84 x10^6/uL (4.30-5.70) Hemoglobin 8.3 g/dL (13.0-17.5) Hematocrit 25.5 % (39.0-53.0) Mean Corpuscular Volume 90 fL (79-100) Mean Corpuscular Hemoglobin 29 pg (25-35) Mean Corpuscular Hemoglobin Concent 32 g/dL (31-37) Red Cell Distribution Width 14.7 % (11.5-14.5) Platelet Count 515 x10^3/uL (140-400) Neutrophils (%) (Auto) 82 % (31-73) Lymphocytes (%) (Auto) 9 % (24-48) Monocytes (%) (Auto) 8 % (0-9) Eosinophils (%) (Auto) 1 % (0-3) Basophils (%) (Auto) 1 % (0-3) Neutrophils # (Auto) 11.2 x10^3/uL (1.8-7.7) Lymphocytes # (Auto) 1.2 x10^3/uL (1.0-4.8) Monocytes # (Auto) 1.1 x10^3/uL (0.0-1.1) Eosinophils # (Auto) 0.1 x10^3/uL (0.0-0.7) Basophils # (Auto) 0.1 x10^3/uL (0.0-0.2) Sodium Level 146 mmol/L (136-145) Potassium Level 4.3 mmol/L (3.5-5.1) Chloride Level 111 mmol/L (98-107) Carbon Dioxide Level 28 mmol/L (21-32) Anion Gap 7 (6-14) Blood Urea Nitrogen 39 mg/dL (8-26) Creatinine 0.9 mg/dL (0.7-1.3) Estimated GFR (Cockcroft-Gault) 108.5 Glucose Level 213 mg/dL (70-99) Calcium Level 8.3 mg/dL (8.5-10.1) Phosphorus Level 3.3 mg/dL (2.6-4.7) Magnesium Level 1.8 mg/dL (1.8-2.4) O2 Saturation 96 % (92-99) Arterial Blood pH 7.42 (7.35-7.45) Arterial Blood pCO2 at Patient Temp 42 mmHg (35-46) Arterial Blood pO2 at Patient Temp 92 mmHg (75-108) Arterial Blood HCO3 27 mmol/L (21-28) Arterial Blood Base Excess 2 mmol/L (-3-3) FiO2 40 Problem List Problems Medical Problems: (1) Acute pancreatitis Status: Acute (2) Nausea & vomiting Status: Acute Assessment/Plan will review with MAXIMILIANO Kimble APRN Jul 07, 2019 09:35
[2019-07-07] MEDS ORDERED: LIDOCAINE WITH 8.4% SOD BICARB 3 ML DISP.SYRIN. ONE (10:07)
[2019-07-07] MEDS ORDERED: IOHEXOL 240 MG/ML 50ML VIAL. ONE (10:07)
--- NOTE | 2019-07-07 10:10 | NUR ---
SS following up with discharge planning. SS phoned and faxed clinical updates to [facility], ; fax [phone]. [facility] currently awaiting insurance authorization at this time. SS discussed with pt's RN. SS will continue to follow for discharge planning.
--- NOTE | 2019-07-07 10:32 | PDOC ---
Objective: Objective: D/w nurse - note IR asked to see, possibly change to G-J tube. Has had fever. Vital Signs: Vital Signs Date Time Temp Pulse Resp B/P (MAP) Pulse Ox O2 Delivery O2 Flow Rate FiO2 07/07/19 08:19 99 Ventilator 07/07/19 08:00 99.7 75 20 102/73 (83) 99.7 07/06/19 21:32 3.0 Labs: Laboratory Tests Test 07/06/19 12:23 07/06/19 17:47 07/07/19 01:01 07/07/19 06:04 Glucose (Fingerstick) 195 mg/dL 156 mg/dL 212 mg/dL 194 mg/dL Test 07/07/19 06:10 07/07/19 08:30 White Blood Count 13.6 x10^3/uL Red Blood Count 2.84 x10^6/uL Hemoglobin 8.3 g/dL Hematocrit 25.5 % Mean Corpuscular Volume 90 fL Mean Corpuscular Hemoglobin 29 pg Mean Corpuscular Hemoglobin Concent 32 g/dL Red Cell Distribution Width 14.7 % Platelet Count 515 x10^3/uL Neutrophils (%) (Auto) 82 % Lymphocytes (%) (Auto) 9 % Monocytes (%) (Auto) 8 % Eosinophils (%) (Auto) 1 % Basophils (%) (Auto) 1 % Neutrophils # (Auto) 11.2 x10^3/uL Lymphocytes # (Auto) 1.2 x10^3/uL Monocytes # (Auto) 1.1 x10^3/uL Eosinophils # (Auto) 0.1 x10^3/uL Basophils # (Auto) 0.1 x10^3/uL Sodium Level 146 mmol/L Potassium Level 4.3 mmol/L Chloride Level 111 mmol/L Carbon Dioxide Level 28 mmol/L Anion Gap 7 Blood Urea Nitrogen 39 mg/dL Creatinine 0.9 mg/dL Estimated GFR (Cockcroft-Gault) 108.5 Glucose Level 213 mg/dL Calcium Level 8.3 mg/dL Phosphorus Level 3.3 mg/dL Magnesium Level 1.8 mg/dL O2 Saturation 96 % Arterial Blood pH 7.42 Arterial Blood pCO2 at Patient Temp 42 mmHg Arterial Blood pO2 at Patient Temp 92 mmHg Arterial Blood HCO3 27 mmol/L Arterial Blood Base Excess 2 mmol/L FiO2 40 PE: GEN: NAD LUNGS: trach/vent, clear anteriorly HEART: RRR ABD: distended, drains NEURO/PSYCH: sedated A/P: S/p pancreatic necrosectomy MOSF, fever -- Following along, continue BID PPI. Hemodynamically unstable?: No Is patient in severe pain?: No Is NPO status required?: Yes PAXTON ALEXANDER Jul 07, 2019 10:32
[2019-07-07] MEDS: DAPTOmycin (GENERIC) IVPB 520 MG in IV NORMAL SALINE 50ML 50 ML IV SCH (10:34)
--- NOTE | 2019-07-07 11:22 | PDOC ---
PROGRESS NOTES Chief Complaint Chief Complaint IMPRESSION Severe pancreatitis s/p ex-lap with pancreatic necrosectomy, cholecystectomy, gastrostomy tube lpacement, tracheostomy placement, 5 drains, 1.5L ascites drained CT F/U Redemonstrated sequela of necrotic pancreatitis. As before there is extensive mesenteric edema but the volume of free abdominopelvic fluid hasdecreased. Edematous enlargement of the pancreas has slightly decreased. A fluid collection along the undersurface of the stomach has decreased in size, as detailed above. A loculated appearing fluid collection within the mid abdomen anterior to the IVC and aorta (image 55 series 4) measures similar to the prior. Ill-defined area of hypoattenuation involving the mid pancreatic body is slightly more conspicuous from the prior (image 37 series 4). It is uncertain if this represents evolving parenchymal necrosis or a developing fluid collection Acute hypoxemic respiratory failure, multifactorial. Status post tracheostomy Acute gallstone pancreatitis./ Necrosis Acute kidney failure. improving Metabolic toxic encephalopathy. Hyperkalemia.corrected Metabolic / respiratory acidosis Hypocalcemia. Hepatitis B Hypernatremia LLL small effusion, monitor DC PICC LINE AND PLACE A NEW LINE 07/06 37 min cc time History of Present Illness History of Present Illness Mr Mata is a 49 yo M admitted with severe epigastric pain beginning in the morning of admission. Ultimately diagnosed with gallstone pancreatitis. Hemodialysis catheter placed for renal failure. Arterial blood gas revealed a pH of 7.30, PaCO2 of 31, PaO2 of 75, bicarb was 15. Consulted ID, GI, General surgery, nephrology, pulmonology 06/21: Ex-lap with pancreatic necrosectomy, cholecystectomy, gastrostomy tube lpacement, tracheostomy placement. 06/22 - 06/26: Has 5 abdominal drains plus a Lobato and an NG to suction, intubated, sedated, paralyzed 06/28- 07/02: remain on micafungin, TPN. Trached on vent, sedated, 40% FiO2 07/03: His dialysis catheter and central line were removed. Ventilated via trach and sedated 07/04: Sedated on precedex. ABG reviewed, stable. Vitals stable, drains stable, still requiring ventilation on trach. Hb 7.6. TAG 1170 changed from propofol to versed for sedation 07/06 reposition G-tube. Overnight sedated. Still febrile. More comfortable on versed for sedation. Hb 7, 1u PRBC ordered. plan: Trend CBC Vitals Vitals Vital Signs Date Time Temp Pulse Resp B/P (MAP) Pulse Ox O2 Delivery O2 Flow Rate FiO2 07/07/19 11:00 100.6 83 20 111/68 (82) 98 Ventilator 100.6 07/06/19 21:32 3.0 Physical Exam Physical Exam GENERAL: Sedated, trached/vent - opens eyes HEENT: Pupils equal reactive NECK: Trach/vent LUNGS: Diminished aeration bases HEART: S1, S2, regular, no murmurs. ABDOMEN: Distended, fairly tight, bowel sounds quiet, drains x5, wound vac in place : Lobato in place 2 plus edema EXTREMITIES: 1+ - 2 edema, no cyanosis. SCDs bilaterally SKIN: Warm, dry. 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 RAT POISONER: Sedated RT PICC line clean (07/01) General: No acute distress Heart: Regular rate, Normal S1, Normal S2, No murmurs, Gallops Lungs: Crackles Abdomen: Soft, Other (vac in place, drains in place) Extremities: No clubbing, No cyanosis, No edema, Normal pulses, No tenderness/swelling Skin: No significant lesion Labs LABS No acute osseous abnormality. Abdomen/pelvis: Limited assessment for a drainable fluid collection without intravenous contrast. The solid organs are not well evaluated as well. Redemonstrated sequela of necrotic pancreatitis with diffuse mesenteric edema, reactive inflammatory changes of abdominopelvic organs and free fluid. Persistent edematous enlargement of the pancreas but less pronounced from the comparison. More pronounced hypoattenuation at the uncinate process on image 44 series 4 is similar to the prior. Hypoattenuation along the mid pancreatic body such as on 38 series 4 is slightly more conspicuous. The volume of free fluid has decreased such as best appreciated along the liver. Two upper abdominal drains have been placed both terminating along the anterior margin of the pancreatic body. An additional drainage catheter enters the right lower quadrant and terminates along the lateral margin of the ascending colon. No fluid collection is seen at the tip of this tube. A fluid collection along the undersurface of the stomach has decreased in size. On coronal image 24 series 8, a portion of the fluid collection measures 4.1 cm transverse by 1.8 cm craniocaudal while previously 6.7 cm transverse by 4.1 cm craniocaudal. Somewhat loculated fluid collection at the mid abdomen anterior to the IVC and aorta, image 55 series 4, measures approximately 8.4 cm transverse by 3 cm AP and is similar in size to the comparison. Some additional areas of fluid appear partially organized but assessment is limited without contrast. No definite air and fluid containing collection to suggest an abscess is identified. No newly seen focal hepatic parenchymal abnormality. A cholecystostomy tube is been placed in the interim. Gallstones are again noted to be present. The gallbladder wall appears less edematous from the prior. The common bile duct is not well delineated. No newly seen abnormality of the spleen noting extensive streak artifact at this location. Unchanged adrenal glands. Similar extent of left more so than right perinephric edema/fluid. No newly seen collecting system dilatation noting that the ureters are not well evaluated throughout the majority of their course. Air within the urinary bladder with a Lobato catheter in place. The balloon appears to be within the bladder lumen but is difficult to delineate. Unchanged prostate. Mild gaseous more so than stool distention of portions of the colon. Edematous wall thickening of the sigmoid and descending aspect is favored reactive. Previously there was wall thickening throughout the transverse and descending colon which is less apparent today. The appendix is not well seen. Diffuse edematous small bowel wall thickening appearing improved at some locations and worsened at others. The most notable wall thickening involves the descending and proximal transverse portions of the duodenum. No findings of obstruction. A gastrostomy tube is present but the tip of the tube is outside of the stomach. There is a fluid and air containing tract from the stomach towards the tip of the gastrostomy tube as seen on images 35 and 36 series 9. Multifocal body wall edema. Unchanged small fat-containing umbilical hernia with a similar degree of surrounding edema-like attenuation. Ventral midline surgical changes. Unchanged osseous structures with scattered chronic findings IMPRESSION: 1. Redemonstrated sequela of necrotic pancreatitis. As before there is extensive mesenteric edema but the volume of free abdominopelvic fluid has decreased. Edematous enlargement of the pancreas has slightly decreased. A fluid collection along the undersurface of the stomach has decreased in size, as detailed above. A loculated appearing fluid collection within the mid abdomen anterior to the IVC and aorta (image 55 series 4) measures similar to the prior. Ill-defined area of hypoattenuation involving the mid pancreatic body is slightly more conspicuous from the prior (image 37 series 4). It is uncertain if this represents evolving parenchymal necrosis or a developing fluid collection as assessment is limited without intravenous contrast. No air and fluid containing collection seen to suggest an abscess but note is made that the sterility of the aforementioned fluid collections is indeterminate by the imaging appearance alone. 2. Extensive reactive inflammatory changes of the abdominopelvic organs. No findings of bowel obstruction. 3. A gastrostomy tube has been placed in the interim. The tube tip is not within the stomach and is seen at the distal end of the surgical tract just deep to the ventral body wall musculature - sagittal images 35 and 36 series 9. 4. Three abdominal drains. No discrete fluid collection surrounding the tips of these drains. Cholecystostomy tube, ET tube, enteric tube, Lobato and right PICC are appropriately positioned. 5. Partial collapse of the left more so than right lower lobes. Moderate-sized left pleural effusion with overlying atelectasis. No infiltrate typical of an organizing pneumonia identified. Electronically signed by: JOHN CASAS MD (07/04/2019 12:40 PM) [id number] DICTATED and SIGNED BY: JOHN CASAS MD DATE: 07/04/19 1240 Laboratory Tests Test 07/06/19 12:23 07/06/19 17:47 07/07/19 01:01 07/07/19 06:04 Glucose (Fingerstick) 195 mg/dL (70-99) 156 mg/dL (70-99) 212 mg/dL (70-99) 194 mg/dL (70-99) Test 07/07/19 06:10 07/07/19 08:30 White Blood Count 13.6 x10^3/uL (4.0-11.0) Red Blood Count 2.84 x10^6/uL (4.30-5.70) Hemoglobin 8.3 g/dL (13.0-17.5) Hematocrit 25.5 % (39.0-53.0) Mean Corpuscular Volume 90 fL (79-100) Mean Corpuscular Hemoglobin 29 pg (25-35) Mean Corpuscular Hemoglobin Concent 32 g/dL (31-37) Red Cell Distribution Width 14.7 % (11.5-14.5) Platelet Count 515 x10^3/uL (140-400) Neutrophils (%) (Auto) 82 % (31-73) Lymphocytes (%) (Auto) 9 % (24-48) Monocytes (%) (Auto) 8 % (0-9) Eosinophils (%) (Auto) 1 % (0-3) Basophils (%) (Auto) 1 % (0-3) Neutrophils # (Auto) 11.2 x10^3/uL (1.8-7.7) Lymphocytes # (Auto) 1.2 x10^3/uL (1.0-4.8) Monocytes # (Auto) 1.1 x10^3/uL (0.0-1.1) Eosinophils # (Auto) 0.1 x10^3/uL (0.0-0.7) Basophils # (Auto) 0.1 x10^3/uL (0.0-0.2) Sodium Level 146 mmol/L (136-145) Potassium Level 4.3 mmol/L (3.5-5.1) Chloride Level 111 mmol/L (98-107) Carbon Dioxide Level 28 mmol/L (21-32) Anion Gap 7 (6-14) Blood Urea Nitrogen 39 mg/dL (8-26) Creatinine 0.9 mg/dL (0.7-1.3) Estimated GFR (Cockcroft-Gault) 108.5 Glucose Level 213 mg/dL (70-99) Calcium Level 8.3 mg/dL (8.5-10.1) Phosphorus Level 3.3 mg/dL (2.6-4.7) Magnesium Level 1.8 mg/dL (1.8-2.4) O2 Saturation 96 % (92-99) Arterial Blood pH 7.42 (7.35-7.45) Arterial Blood pCO2 at Patient Temp 42 mmHg (35-46) Arterial Blood pO2 at Patient Temp 92 mmHg (75-108) Arterial Blood HCO3 27 mmol/L (21-28) Arterial Blood Base Excess 2 mmol/L (-3-3) FiO2 40 Assessment and Plan Assessmemt and Plan Problems Medical Problems: (1) Acute pancreatitis Status: Acute (2) Nausea & vomiting Status: Acute Comment Review of Relevant I have reviewed the following items alexandra (where applicable) has been applied. Labs Laboratory Tests Test 07/05/19 11:35 3/21/20 12:01 07/05/19 18:43 07/05/19 20:54 Triglycerides Level 1170 mg/dL (0-150) Glucose (Fingerstick) 168 mg/dL (70-99) 141 mg/dL (70-99) 146 mg/dL (70-99) Test 07/06/19 00:14 07/06/19 05:58 07/06/19 07:15 07/06/19 08:00 Glucose (Fingerstick) 173 mg/dL (70-99) 155 mg/dL (70-99) White Blood Count 13.9 x10^3/uL (4.0-11.0) Red Blood Count 2.44 x10^6/uL (4.30-5.70) Hemoglobin 7.0 g/dL (13.0-17.5) Hematocrit 22.7 % (39.0-53.0) Mean Corpuscular Volume 93 fL (79-100) Mean Corpuscular Hemoglobin 29 pg (25-35) Mean Corpuscular Hemoglobin Concent 31 g/dL (31-37) Red Cell Distribution Width 15.4 % (11.5-14.5) Platelet Count 478 x10^3/uL (140-400) Neutrophils (%) (Auto) 81 % (31-73) Lymphocytes (%) (Auto) 8 % (24-48) Monocytes (%) (Auto) 9 % (0-9) Eosinophils (%) (Auto) 1 % (0-3) Basophils (%) (Auto) 1 % (0-3) Neutrophils # (Auto) 11.3 x10^3/uL (1.8-7.7) Lymphocytes # (Auto) 1.1 x10^3/uL (1.0-4.8) Monocytes # (Auto) 1.3 x10^3/uL (0.0-1.1) Eosinophils # (Auto) 0.1 x10^3/uL (0.0-0.7) Basophils # (Auto) 0.1 x10^3/uL (0.0-0.2) O2 Saturation 96 % (92-99) Arterial Blood pH 7.45 (7.35-7.45) Arterial Blood pCO2 at Patient Temp 40 mmHg (35-46) Arterial Blood pO2 at Patient Temp 89 mmHg (75-108) Arterial Blood HCO3 27 mmol/L (21-28) Arterial Blood Base Excess 3 mmol/L (-3-3) FiO2 40 Test 07/06/19 12:23 07/06/19 17:47 07/07/19 01:01 07/07/19 06:04 Glucose (Fingerstick) 195 mg/dL (70-99) 156 mg/dL (70-99) 212 mg/dL (70-99) 194 mg/dL (70-99) Test 07/07/19 06:10 07/07/19 08:30 White Blood Count 13.6 x10^3/uL (4.0-11.0) Red Blood Count 2.84 x10^6/uL (4.30-5.70) Hemoglobin 8.3 g/dL (13.0-17.5) Hematocrit 25.5 % (39.0-53.0) Mean Corpuscular Volume 90 fL (79-100) Mean Corpuscular Hemoglobin 29 pg (25-35) Mean Corpuscular Hemoglobin Concent 32 g/dL (31-37) Red Cell Distribution Width 14.7 % (11.5-14.5) Platelet Count 515 x10^3/uL (140-400) Neutrophils (%) (Auto) 82 % (31-73) Lymphocytes (%) (Auto) 9 % (24-48) Monocytes (%) (Auto) 8 % (0-9) Eosinophils (%) (Auto) 1 % (0-3) Basophils (%) (Auto) 1 % (0-3) Neutrophils # (Auto) 11.2 x10^3/uL (1.8-7.7) Lymphocytes # (Auto) 1.2 x10^3/uL (1.0-4.8) Monocytes # (Auto) 1.1 x10^3/uL (0.0-1.1) Eosinophils # (Auto) 0.1 x10^3/uL (0.0-0.7) Basophils # (Auto) 0.1 x10^3/uL (0.0-0.2) Sodium Level 146 mmol/L (136-145) Potassium Level 4.3 mmol/L (3.5-5.1) Chloride Level 111 mmol/L (98-107) Carbon Dioxide Level 28 mmol/L (21-32) Anion Gap 7 (6-14) Blood Urea Nitrogen 39 mg/dL (8-26) Creatinine 0.9 mg/dL (0.7-1.3) Estimated GFR (Cockcroft-Gault) 108.5 Glucose Level 213 mg/dL (70-99) Calcium Level 8.3 mg/dL (8.5-10.1) Phosphorus Level 3.3 mg/dL (2.6-4.7) Magnesium Level 1.8 mg/dL (1.8-2.4) O2 Saturation 96 % (92-99) Arterial Blood pH 7.42 (7.35-7.45) Arterial Blood pCO2 at Patient Temp 42 mmHg (35-46) Arterial Blood pO2 at Patient Temp 92 mmHg (75-108) Arterial Blood HCO3 27 mmol/L (21-28) Arterial Blood Base Excess 2 mmol/L (-3-3) FiO2 40 Laboratory Tests Test 07/06/19 12:23 07/06/19 17:47 07/07/19 01:01 07/07/19 06:04 Glucose (Fingerstick) 195 mg/dL (70-99) 156 mg/dL (70-99) 212 mg/dL (70-99) 194 mg/dL (70-99) Test 07/07/19 06:10 07/07/19 08:30 White Blood Count 13.6 x10^3/uL (4.0-11.0) Red Blood Count 2.84 x10^6/uL (4.30-5.70) Hemoglobin 8.3 g/dL (13.0-17.5) Hematocrit 25.5 % (39.0-53.0) Mean Corpuscular Volume 90 fL (79-100) Mean Corpuscular Hemoglobin 29 pg (25-35) Mean Corpuscular Hemoglobin Concent 32 g/dL (31-37) Red Cell Distribution Width 14.7 % (11.5-14.5) Platelet Count 515 x10^3/uL (140-400) Neutrophils (%) (Auto) 82 % (31-73) Lymphocytes (%) (Auto) 9 % (24-48) Monocytes (%) (Auto) 8 % (0-9) Eosinophils (%) (Auto) 1 % (0-3) Basophils (%) (Auto) 1 % (0-3) Neutrophils # (Auto) 11.2 x10^3/uL (1.8-7.7) Lymphocytes # (Auto) 1.2 x10^3/uL (1.0-4.8) Monocytes # (Auto) 1.1 x10^3/uL (0.0-1.1) Eosinophils # (Auto) 0.1 x10^3/uL (0.0-0.7) Basophils # (Auto) 0.1 x10^3/uL (0.0-0.2) Sodium Level 146 mmol/L (136-145) Potassium Level 4.3 mmol/L (3.5-5.1) Chloride Level 111 mmol/L (98-107) Carbon Dioxide Level 28 mmol/L (21-32) Anion Gap 7 (6-14) Blood Urea Nitrogen 39 mg/dL (8-26) Creatinine 0.9 mg/dL (0.7-1.3) Estimated GFR (Cockcroft-Gault) 108.5 Glucose Level 213 mg/dL (70-99) Calcium Level 8.3 mg/dL (8.5-10.1) Phosphorus Level 3.3 mg/dL (2.6-4.7) Magnesium Level 1.8 mg/dL (1.8-2.4) O2 Saturation 96 % (92-99) Arterial Blood pH 7.42 (7.35-7.45) Arterial Blood pCO2 at Patient Temp 42 mmHg (35-46) Arterial Blood pO2 at Patient Temp 92 mmHg (75-108) Arterial Blood HCO3 27 mmol/L (21-28) Arterial Blood Base Excess 2 mmol/L (-3-3) FiO2 40 Microbiology 07/04/19 - Final, Resulted 07/04/19 - Final, Resulted 07/04/19 - Final, Resulted 07/04/19 - Preliminary, Resulted 07/04/19 - Preliminary, Resulted 07/04/19 - Preliminary, Resulted 07/04/19 Gram Stain Evaluation - Final, Resulted 07/04/19 Sputum Culture - Final, Resulted 07/04/19 Sputum Result 1 - Final, Resulted 07/04/19 Blood Culture - Preliminary, Resulted NO GROWTH AFTER 3 DAYS 07/03/19 Aerobic Culture - Preliminary, Resulted 07/03/19 Aerobic Culture Result 1 (CARINE) - Preliminary, Resulted 07/03/19 Gram Stain - Final, Resulted 07/03/19 Gram Stain Result 1 (CARINE) - Final, Resulted 07/03/19 Gram Stain Result 2 (CARINE) - Final, Resulted 06/22/19 AFB Specimen Processing Tissue - Final, Resulted 06/22/19 Acid Fast Bacilli Culture, Resulted Pending 06/22/19 Gram Stain - Final, Resulted 06/22/19 Fungal Culture - Preliminary, Resulted 06/22/19 Fungal Culture Result 1 - Preliminary, Resulted Medications Current Medications Morphine Sulfate (Morphine Sulfate) 4 mg PRN Q15MIN PRN IV/SQ PAIN GREATER THAN 3/10 Last administered on 06/11/19at 04:58; Start 06/11/19 at 04:30; Stop 06/11/19 at 16:47; Status DC Sodium Chloride 1,000 ml @ 1,000 mls/hr Q1H IV Last administered on 06/11/19at 04:34; Start 06/11/19 at 04:30; Stop 06/11/19 at 05:29; Status DC Ondansetron HCl (Zofran) 4 mg 1X ONCE IV Last administered on 06/11/19at 04:33; Start 06/11/19 at 04:30; Stop 06/11/19 at 04:33; Status DC Iohexol (Omnipaque 350 Mg/ml) 100 ml 1X ONCE IV Last administered on 06/11/19at 05:01; Start 06/11/19 at 04:45; Stop 06/11/19 at 04:46; Status DC Info (CONTRAST GIVEN -- Rx MONITORING) 1 each PRN DAILY PRN MC SEE COMMENTS; Start 06/11/19 at 04:45; Stop 06/13/19 at 04:44; Status DC Fentanyl Citrate (Fentanyl 2ml Vial) 100 mcg STK-MED ONCE .ROUTE ; Start 06/11/19 at 04:42; Stop 06/11/19 at 04:42; Status DC Fentanyl Citrate (Fentanyl 2ml Vial) 50 mcg 1X ONCE IVP Last administered on 06/11/19at 04:45; Start 06/11/19 at 05:00; Stop 06/11/19 at 05:01; Status DC Ondansetron HCl (Zofran) 4 mg PRN Q8HRS PRN IV NAUSEA/VOMITING Last administered on 06/12/19at 03:29; Start 06/11/19 at 05:45; Stop 06/12/19 at 05:44; Status DC Morphine Sulfate (Morphine Sulfate) 4 mg PRN Q2HR PRN IV PAIN Last administered on 06/11/19at 07:37; Start 06/11/19 at 05:45; Stop 06/11/19 at 11:54; Status DC Sodium Chloride 1,000 ml @ 150 mls/hr Q6H40M IV Last administered on 06/12/19at 03:28; Start 06/11/19 at 05:45; Stop 06/12/19 at 11:01; Status DC Hydromorphone HCl (Dilaudid) 0.5 mg PRN Q3HRS PRN IV PAIN Last administered on 06/11/19at 08:38; Start 06/11/19 at 05:45; Stop 06/11/19 at 09:12; Status DC Potassium Chloride/Water 100 ml @ 100 mls/hr Q1H IV Last administered on 06/11/19at 08:41; Start 06/11/19 at 06:00; Stop 06/11/19 at 07:59; Status DC Hydromorphone HCl (Dilaudid) 1 mg PRN Q3HRS PRN IV PAIN Last administered on 06/11/19at 09:29; Start 06/11/19 at 09:15; Stop 06/11/19 at 11:54; Status DC Prochlorperazine Edisylate (Compazine) 10 mg PRN Q8HRS PRN IV NAUSEA/VOMITING, 2ND CHOICE Last administered on 06/12/19at 14:59; Start 06/11/19 at 12:00 Hydromorphone HCl (Dilaudid) 1 mg PRN Q2HRS PRN IV SEVERE PAIN Last administered on 06/29/19 07:35; Start 06/11/19 at 12:00 Pantoprazole Sodium (PROTONIX VIAL for IV PUSH) 40 mg DAILYAC IVP Last administered on 06/12/19at 08:29; Start 06/11/19 at 15:00; Stop 06/12/19 at 16:23; Status DC Lorazepam (Ativan Inj) 1 mg PRN Q6HRS PRN IVP ANXIETY / AGITATION Last administered on 06/29/19at 07:48; Start 06/11/19 at 18:15 Hydralazine HCl (Apresoline Inj) 10 mg PRN Q6HRS PRN IVP ELEVATED BP, SEE COMMENTS Last administered on 06/18/19at 09:32; Start 06/11/19 at 18:15; Stop 06/21/19 at 09:12; Status DC Nystatin (Nystop) 1 devorah PRN QID PRN TP FUNGAL RASH Last administered on 06/11/19at 23:19; Start 06/11/19 at 23:15 Sodium Chloride 1,000 ml @ 1,000 mls/hr 1X ONCE IV Last administered on 06/12/19at 05:27; Start 06/12/19 at 06:00; Stop 06/12/19 at 06:59; Status DC Sodium Chloride 1,000 ml @ 1,000 mls/hr 1X ONCE IV Last administered on 06/12/19at 05:25; Start 06/12/19 at 05:00; Stop 06/12/19 at 05:59; Status DC Sodium Chloride 1,000 ml @ 200 mls/hr Q5H IV Last administered on 06/12/19at 06:36; Start 06/12/19 at 07:00; Stop 06/12/19 at 11:01; Status DC Sodium Bicarbonate 50 meq/Sodium Chloride 1,050 ml @ 150 mls/hr Q7H IV Last administered on 06/13/19at 04:16; Start 06/12/19 at 11:00; Stop 06/13/19 at 14:48; Status DC Amino Acids/ Glycerin/ Electrolytes 1,000 ml @ 80 mls/hr [id number] IV ; Start 06/12/19 at 10:00; Status UNV Amino Acids/ Electrolytes/ Dextrose 1,000 ml @ 80 mls/hr [id number] IV ; Start 06/12/19 at 10:15; Stop 06/18/19 at 13:50; Status DC Piperacillin Sod/ Tazobactam Sod (Zosyn Per Pharmacy) 1 each PRN DAILY PRN MC SEE COMMENTS; Start 06/12/19 at 13:15; Stop 06/12/19 at 19:16; Status DC Piperacillin Sod/ Tazobactam Sod 2.25 gm/Sodium Chloride 50 ml @ 100 mls/hr Q6HRS IV Last administered on 06/12/19at 13:48; Start 06/12/19 at 13:30; Stop 06/12/19 at 19:15; Status DC Sodium Bicarbonate (Sodium Bicarb Adult 8.4% Syr) 50 meq 1X ONCE IV Last administered on 06/12/19at 16:12; Start 06/12/19 at 16:00; Stop 06/12/19 at 16:01; Status DC Calcium Gluconate 1000 mg/Sodium Chloride 110 ml @ 220 mls/hr 1X ONCE IV Last administered on 06/12/19at 16:13; Start 06/12/19 at 16:00; Stop 06/12/19 at 16:29; Status DC Dextrose (Dextrose 50%-Water Syringe) 25 gm 1X ONCE IV Last administered on 06/12/19at 16:13; Start 06/12/19 at 16:00; Stop 06/12/19 at 16:01; Status DC Insulin Human Regular (HumuLIN R VIAL) 10 unit 1X ONCE IV Last administered on 06/12/19 16:14; Start 06/12/19 at 16:00; Stop 06/12/19 at 16:01; Status DC Furosemide (Lasix) 40 mg 1X ONCE IVP Last administered on 06/12/19at 16:13; Start 06/12/19 at 16:00; Stop 06/12/19 at 16:01; Status DC Pantoprazole Sodium (PROTONIX VIAL for IV PUSH) 40 mg [id number] IVP Last administered on 06/13/19at 06:21; Start 06/12/19 at 18:00; Stop 06/13/19 at 18:49; Status DC Meropenem 500 mg/ Sodium Chloride 50 ml @ 100 mls/hr Q12HR IV Last administered on 06/17/19at 20:59; Start 06/12/19 at 21:00; Stop 06/18/19 at 07:26; Status DC Calcium Gluconate 1000 mg/Sodium Chloride 110 ml @ 220 mls/hr 1X ONCE IV Last administered on 06/12/19at 20:35; Start 06/12/19 at 19:15; Stop 06/12/19 at 19:44; Status DC Lidocaine HCl (Buffered Lidocaine 1%) 3 ml STK-MED ONCE .ROUTE ; Start 06/13/19 at 08:47; Stop 06/13/19 at 08:47; Status DC Lidocaine HCl (Buffered Lidocaine 1%) 6 ml 1X ONCE INJ Last administered on 06/13/19at 09:23; Start 06/13/19 at 09:30; Stop 06/13/19 at 09:31; Status DC Insulin Human Lispro (HumaLOG) 0-7 UNITS TIDWMEALS SQ Last administered on 06/13/19at 12:14; Start 06/13/19 at 12:00; Stop 06/14/19 at 23:29; Status DC Dextrose (Dextrose 50%-Water Syringe) 12.5 gm PRN Q15MIN PRN IV SEE COMMENTS; Start 06/13/19 at 11:15; Stop 06/14/19 at 23:29; Status DC Insulin Human Regular 100 unit/ Sodium Chloride 101 ml @ 0 mls/hr CONT PRN IV SEE I/O RECORD Last administered on 06/13/19at 15:03; Start 06/13/19 at 14:15; Stop 06/21/19 at 12:37; Status DC Sodium Chloride 1,000 ml @ 1,000 mls/hr Q1H PRN IV hypotension; Start 06/13/19 at 14:00; Stop 06/13/19 at 19:59; Status DC Sodium Chloride 1,000 ml @ 400 mls/hr Q2H30M PRN IV PATENCY; Start 06/13/19 at 14:00; Stop 06/14/19 at 01:59; Status DC Info (PHARMACY MONITORING -- do not chart) 1 each PRN DAILY PRN MC SEE COMMENTS; Start 06/13/19 at 14:45; Stop 06/13/19 at 14:51; Status DC Info (PHARMACY MONITORING -- do not chart) 1 each PRN DAILY PRN MC SEE COMMENTS; Start 06/13/19 at 14:45; Stop 06/27/19 at 12:33; Status DC Pantoprazole Sodium (PROTONIX VIAL for IV PUSH) 40 mg [id number] IVP Last administered on 07/07/19at 06:16; Start 06/13/19 at 21:00 Dexmedetomidine HCl 400 mcg/ Sodium Chloride 100 ml @ 0 mls/hr CONT PRN IV PER PROTOCOL Last administered on 06/21/19at 05:52; Start 06/13/19 at 19:00; Stop 06/21/19 at 19:39; Status DC Sodium Chloride 500 ml @ 500 mls/hr 1X PRN PRN IV SEE COMMENTS; Start 06/13/19 at 19:00; Stop 07/05/19 at 08:01; Status DC Atropine Sulfate (ATROPINE 0.5mg SYRINGE) 0.5 mg PRN Q5MIN PRN IV SEE COMMENTS; Start 06/13/19 at 19:00; Stop 06/27/19 at 12:28; Status DC Sodium Chloride 1,000 ml @ 1,000 mls/hr Q1H PRN IV hypotension; Start 06/14/19 at 08:55; Stop 06/14/19 at 14:54; Status DC Albumin Human 200 ml @ 200 mls/hr 1X PRN PRN IV Hypotension Last administered on 06/14/19at 09:40; Start 06/14/19 at 09:00; Stop 06/14/19 at 14:59; Status DC Sodium Chloride 1,000 ml @ 400 mls/hr Q2H30M PRN IV PATENCY; Start 06/14/19 at 08:55; Stop 06/14/19 at 20:54; Status DC Info (PHARMACY MONITORING -- do not chart) 1 each PRN DAILY PRN MC SEE COMMENTS; Start 06/14/19 at 09:00; Stop 06/14/19 at 09:06; Status DC Info (PHARMACY MONITORING -- do not chart) 1 each PRN DAILY PRN MC SEE COMMENTS; Start 06/14/19 at 09:00; Stop 06/14/19 at 09:06; Status DC Calcium Chloride 2000 mg/Sodium Chloride 120 ml @ 240 mls/hr PRN QID PRN IV for CALCIUM < 5.8 Last administered on 06/15/19at 08:32; Start 06/14/19 at 10:15; Stop 06/15/19 at 09:58; Status DC Magnesium Sulfate 50 ml @ 25 mls/hr PRN DAILY PRN IV for Mag < 1.7 on am labs; Start 06/14/19 at 10:30 Norepinephrine Bitartrate 8 mg/ Dextrose 258 ml @ 20.027 mls/ hr CONT PRN IV PER PROTOCOL Last administered on 06/14/19at 10:31; Start 06/14/19 at 10:30 Succinylcholine Chloride (Anectine) 200 mg STK-MED ONCE .ROUTE ; Start 06/14/19 at 12:22; Stop 06/14/19 at 12:23; Status DC Etomidate (Amidate) 20 mg STK-MED ONCE IV ; Start 06/14/19 at 12:22; Stop 06/14/19 at 12:23; Status DC Fentanyl Citrate 30 ml @ 0 mls/hr CONT PRN IV SEE PROTOCOL Last administered on 06/19/19at 08:10; Start 06/14/19 at 12:45; Stop 06/19/19 at 11:00; Status DC Chlorhexidine Gluconate (Peridex) 15 ml BID MM Last administered on 06/30/19at 20:47; Start 06/14/19 at 21:00; Stop 07/01/19 at 16:34; Status DC Midazolam HCl 50 mg/Sodium Chloride 50 ml @ 0 mls/hr CONT PRN IV SEE PROTOCOL Last administered on 07/07/19at 08:20; Start 06/14/19 at 12:45 Midazolam HCl (Versed) 5 mg STK-MED ONCE .ROUTE ; Start 06/14/19 at 12:48; Stop 06/14/19 at 12:48; Status DC Fentanyl Citrate (Fentanyl 2ml Vial) 100 mcg STK-MED ONCE .ROUTE ; Start at 12:48; Stop 06/14/19 at 12:48; Status DC Midazolam HCl (Versed) 5 mg 1X ONCE IV Last administered on 06/14/19at 12:59; Start 06/14/19 at 13:00; Stop 06/14/19 at 13:01; Status DC Fentanyl Citrate (Fentanyl 2ml Vial) 100 mcg 1X ONCE IM Last administered on 06/14/19at 12:58; Start 06/14/19 at 13:00; Stop 06/14/19 at 13:01; Status DC Succinylcholine Chloride (Anectine) 200 mg 1X ONCE IV Last administered on 06/14/19at 12:59; Start 06/14/19 at 13:00; Stop 06/14/19 at 13:01; Status DC Etomidate (Amidate) 14 mg 1X ONCE IV Last administered on 06/14/19at 12:59; Start 06/14/19 at 13:00; Stop 06/14/19 at 13:01; Status DC Acetaminophen (Tylenol Supp) 650 mg PRN Q6HRS PRN [place] MILD PAIN / TEMP Last administered on 07/06/19at 00:18; Start 06/14/19 at 20:00 Linezolid/Dextrose 300 ml @ 300 mls/hr Q12HR IV Last administered on 07/03/19at 08:34; Start 06/14/19 at 21:00; Stop 07/03/19 at 09:09; Status DC Insulin Human Lispro (HumaLOG) 0-7 UNITS TIDWMEALS SQ ; Start 06/15/19 at 08:00; Stop 06/15/19 at 00:03; Status DC Dextrose (Dextrose 50%-Water Syringe) 12.5 gm PRN Q15MIN PRN IV SEE COMMENTS; Start 06/14/19 at 23:30; Stop 07/03/19 at 10:41; Status DC Insulin Human Lispro (HumaLOG) 0-7 UNITS Q4HRS SQ Last administered on 06/23/19at 08:05; Start 06/15/19 at 00:15; Stop 07/01/19 at 16:41; Status DC Calcium Gluconate 16233 mg/Sodium Chloride 494 ml @ 4.051 mls/ hr CONT PRN IV SYMPTOMATIC HYPOCALCEMIA; Start 06/15/19 at 09:30; Stop 06/15/19 at 09:23; Status DC Calcium Gluconate 5000 mg/Sodium Chloride 260 ml @ 5.543 mls/ hr CONT PRN IV SYMPTOMATIC HYPOCALCEMIA; Start 06/15/19 at 09:30; Stop 06/15/19 at 09:26; Status DC Calcium Gluconate 5000 mg/Sodium Chloride 260 ml @ 5.543 mls/ hr CONT PRN IV SYMPTOMATIC HYPOCALCEMIA; Start 06/15/19 at 09:30; Stop 06/15/19 at 09:29; Status DC Calcium Gluconate 5000 mg/Sodium Chloride 250 ml @ 28.782 mls/ hr CONT PRN IV SYMPTOMATIC HYPOCALCEMIA Last administered on 06/18/19at 06:12; Start 06/15/19 at 09:30; Stop 06/18/19 at 13:50; Status DC Lidocaine HCl (Lidocaine Pf 2% Vial) 5 ml STK-MED ONCE .ROUTE ; Start 06/14/19 at 12:00; Stop 06/17/19 at 10:37; Status DC Meropenem 500 mg/ Sodium Chloride 50 ml @ 100 mls/hr Q6HRS IV Last administered on 07/06/19at 12:12; Start 06/18/19 at 07:30; Stop 07/06/19 at 15:00; Status DC Nicardipine HCl 50 mg/Sodium Chloride 250 ml @ 25 mls/hr CONT PRN IV SEE I/O RECORD; Start 06/18/19 at 11:45 Metoprolol Tartrate (Lopressor Vial) 5 mg 1X ONCE IVP ; Start 06/18/19 at 12:15; Stop 06/18/19 at 12:16; Status DC Fentanyl Citrate (Fentanyl 600 Mcg/30 ml [employer]) 600 mcg STK-MED ONCE IV ; Start 06/15/19 at 05:30; Stop 06/18/19 at 12:07; Status DC Enoxaparin Sodium (Lovenox 40mg Syringe) 40 mg Q24H SQ Last administered on 06/21/19at 23:02; Start 06/18/19 at 22:30; Stop 06/22/19 at 11:07; Status DC Fentanyl Citrate 55 ml @ 1.98 mls/hr CONT PRN IV SEE PROTOCOL; Start 06/19/19 at 08:15; Status Cancel Info (Tpn Per Pharmacy) 1 each PRN DAILY PRN MC SEE COMMENTS Last administered on 07/05/19at 12:53; Start 06/19/19 at 11:15 Hydralazine HCl (Apresoline Inj) 10 mg PRN Q4HRS PRN IVP ELEVATED BP, 1st choice Last administered on 06/26/19at 15:43; Start 06/19/19 at 11:45 Labetalol HCl (Normodyne Iv Push) 20 mg PRN Q2HR PRN IVP HYPERTENSION, 2nd choice Last administered on 06/26/19at 14:44; Start 06/19/19 at 11:45 Potassium Phosphate 13.6 mmol/Magnesium Sulfate 10 meq/ Calcium Gluconate 20 meq/ Multivitamins 10 ml/Chromium/ Copper/Manganese/ Seleni/Zn 0.5 ml/ Total Parenteral Nutrition/Amino Acids/Dextrose/ Fat Emulsion Intravenous 1,920 ml @ 80 mls/hr TPN CONT IV Last administered on 06/19/19at 21:31; Start 06/19/19 at 22:00; Stop 06/20/19 at 21:59; Status DC Fentanyl Citrate 30 ml @ 0 mls/hr CONT PRN IV SEE PROTOCOL Last administered on 06/24/19at 09:31; Start 06/19/19 at 18:00; Stop 06/24/19 at 11:38; Status DC Micafungin Sodium 100 mg/Dextrose 100 ml @ 100 mls/hr Q24H IV Last administered on 07/07/19at 08:19; Start 06/20/19 at 09:00; Stop 07/07/19 at 09:51; Status DC Potassium Phosphate 13.6 mmol/Calcium Gluconate 20 meq/ Multivitamins 10 ml/Chromium/ Copper/Manganese/ Seleni/Zn 0.5 ml/ Insulin Human Regular 10 unit/ Total Parenteral Nutrition/Amino Acids/Dextrose/ Fat Emulsion Intravenous 1,920 ml @ 80 mls/hr TPN CONT IV Last administered on 06/20/19at 21:57; Start 06/20/19 at 22:00; Stop 06/21/19 at 21:59; Status DC Insulin Glargine (Lantus Syringe) 15 unit QHS SQ Last administered on 06/20/19at 20:46; Start 06/20/19 at 21:00; Stop 06/21/19 at 12:32; Status DC Insulin Glargine (Lantus Syringe) 20 unit QHS SQ Last administered on 07/02/19at 20:46; Start 06/21/19 at 21:00; Stop 07/03/19 at 10:39; Status DC Potassium Phosphate 13.6 mmol/Calcium Gluconate 20 meq/ Multivitamins 10 ml/Chromium/ Copper/Manganese/ Seleni/Zn 0.5 ml/ Insulin Human Regular 10 unit/ Total Parenteral Nutrition/Amino Acids/Dextrose/ Fat Emulsion Intravenous 1,920 ml @ 80 mls/hr TPN CONT IV Last administered on 06/21/19at 21:31; Start 06/21/19 at 22:00; Stop 06/22/19 at 21:59; Status DC Dextrose 1,000 ml @ 75 mls/hr [id number] IV Last administered on 06/27/19at 01:32; Start 06/22/19 at 07:00; Stop 06/27/19 at 12:43; Status DC Albuterol Sulfate (Ventolin Neb Soln) 2.5 mg RTQID NEB Last administered on 07/07/19at 08:19; Start 06/22/19 at 08:00 Iohexol (Omnipaque 240 Mg/ml) 30 ml 1X ONCE PO ; Start 06/22/19 at 08:00; Stop 06/22/19 at 08:05; Status DC Iohexol (Omnipaque 300 Mg/ml) 75 ml 1X ONCE IV ; Start 06/22/19 at 08:00; Stop 06/22/19 at 08:01; Status Cancel Info (CONTRAST GIVEN -- Rx MONITORING) 1 each PRN DAILY PRN MC SEE COMMENTS; Start 06/22/19 at 08:15; Stop 06/24/19 at 08:14; Status DC Cefoxitin Sodium (Mefoxin) 2 gm 1X PREOP IVP ; Start 06/22/19 at 11:00; Stop 06/22/19 at 11:16; Status DC Cefoxitin Sodium (Mefoxin) 2 gm 1X PREOP ONCE IVP Last administered on 06/22/19at 11:37; Start 06/22/19 at 11:30; Stop 06/22/19 at 11:31; Status DC Rocuronium Perry (Zemuron) 50 mg STK-MED ONCE .ROUTE ; Start 06/22/19 at 11:42; Stop 06/22/19 at 11:42; Status DC Propofol 20 ml @ As Directed STK-MED ONCE IV ; Start 06/22/19 at 11:42; Stop 06/22/19 at 11:43; Status DC Dexamethasone Sodium Phosphate (Decadron) 4 mg STK-MED ONCE .ROUTE ; Start 06/22/19 at 11:45; Stop 06/22/19 at 11:45; Status DC Ondansetron HCl (Zofran) 4 mg STK-MED ONCE .ROUTE ; Start 06/22/19 at 11:45; Stop 06/22/19 at 11:45; Status DC Potassium Phosphate 13.6 mmol/Magnesium Sulfate 5 meq/ Calcium Gluconate 20 meq/ Multivitamins 10 ml/Chromium/ Copper/Manganese/ Seleni/Zn 0.5 ml/ Total Parenteral Nutrition/Amino Acids/Dextrose/ Fat Emulsion Intravenous 1,920 ml @ 80 mls/hr TPN CONT IV Last administered on 06/22/19at 22:14; Start 06/22/19 at 22:00; Stop 06/23/19 at 21:59; Status DC Rocuronium Perry (Zemuron) 100 mg STK-MED ONCE .ROUTE ; Start 06/22/19 at 13:05; Stop 06/22/19 at 13:06; Status DC Cellulose (Surgicel Hemostat 4x8) 1 each STK-MED ONCE .ROUTE Last administered on 06/22/19at 12:46; Start 06/22/19 at 13:14; Stop 06/22/19 at 13:14; Status DC Albumin Human 500 ml @ As Directed STK-MED ONCE IV ; Start 06/22/19 at 13:25; Stop 06/22/19 at 13:25; Status DC Sevoflurane (Ultane) 90 ml STK-MED ONCE IH ; Start 06/22/19 at 13:53; Stop 06/22/19 at 13:53; Status DC Cellulose (Surgicel Hemostat 4x8) 1 each STK-MED ONCE TP Last administered on 06/22/19at 12:46; Start 06/22/19 at 12:46; Stop 06/22/19 at 14:25; Status DC Cellulose (Surgicel Hemostat 4x8) 1 each STK-MED ONCE TP Last administered on 06/22/19at 12:46; Start 06/22/19 at 12:46; Stop 06/22/19 at 14:25; Status DC Rocuronium Perry (Zemuron) 50 mg STK-MED ONCE .ROUTE ; Start 06/22/19 at 14:52; Stop 06/22/19 at 14:52; Status DC Vecuronium Perry 50 mg/ Miscellaneous 50 ml @ 4.925 mls/ hr CONT PRN IV SEE PROTOCOL Last administered on 06/25/19at 05:19; Start 06/22/19 at 15:00 Enoxaparin Sodium (Lovenox 40mg Syringe) 40 mg Q24H SQ Last administered on 07/07/19at 06:17; Start 06/23/19 at 06:00 Sodium Chloride (Normal Saline Flush) 3 ml QSHIFT PRN IV AFTER MEDS AND BLOOD DRAWS; Start 06/22/19 at 15:45 Ringer's Solution 1,000 ml @ 100 mls/hr Q10H IV Last administered on 06/23/19at 22:06; Start 06/22/19 at 15:39; Stop 06/24/19 at 17:46; Status DC Naloxone HCl (Narcan) 0.4 mg PRN Q2MIN PRN IV SEE INSTRUCTIONS; Start 06/22/19 at 15:45 Sodium Chloride 1,000 ml @ 25 mls/hr Q24H IV Last administered on 07/06/19at 21:55; Start 06/22/19 at 15:39 Morphine Sulfate (Morphine Sulfate) 1 mg PRN Q1HR PRN IV MODERATE PAIN; Start 06/22/19 at 15:45 Ondansetron HCl (Zofran) 4 mg PRN Q6HRS PRN IVP NAUESA, 1ST CHOICE; Start 06/22/19 at 15:45 Calcium Gluconate (Calcium Gluconate) 1,000 mg 1X ONCE IVP ; Start 06/22/19 at 19:45; Stop 06/22/19 at 20:15; Status DC Sodium Bicarbonate (Sodium Bicarb Adult 8.4% Syr) 50 meq 1X ONCE IV Last administered on 06/22/19at 20:37; Start 06/22/19 at 19:45; Stop 06/22/19 at 19:57; Status DC Dextrose (Dextrose 50%-Water Syringe) 25 gm 1X ONCE IV Last administered on 06/22/19at 20:37; Start 06/22/19 at 19:45; Stop 06/22/19 at 19:57; Status DC Insulin Human Regular (HumuLIN R VIAL) 10 unit 1X ONCE IV Last administered on 06/22/19at 20:45; Start 06/22/19 at 19:45; Stop 06/22/19 at 19:57; Status DC Calcium Gluconate 1000 mg/Sodium Chloride 110 ml @ 220 mls/hr 1X ONCE IV Last administered on 06/22/19at 20:36; Start 06/22/19 at 20:15; Stop 06/22/19 at 20:44; Status DC Insulin Human Regular 100 unit/ Sodium Chloride 101 ml @ 0 mls/hr CONT PRN IV SEE I/O RECORD Last administered on 07/02/19at 18:55; Start 06/23/19 at 12:15; Stop 07/03/19 at 10:39; Status DC Sodium Phosphate 10 mmol/Magnesium Sulfate 5 meq/ Calcium Gluconate 15 meq/ Multivitamins 10 ml/Chromium/ Copper/Manganese/ Seleni/Zn 0.5 ml/ Insulin Human Regular 10 unit/ Total Parenteral Nutrition/Amino Acids/Dextrose/ Fat Emulsion Intravenous 1,920 ml @ 80 mls/hr TPN CONT IV Last administered on 06/23/19at 22:20; Start 06/23/19 at 22:00; Stop 06/24/19 at 21:59; Status DC Fentanyl Citrate 55 ml @ 1.98 mls/hr CONT PRN IV SEE PROTOCOL Last administered on 07/06/19at 17:36; Start 06/24/19 at 11:45 Sodium Phosphate 10 mmol/Magnesium Sulfate 5 meq/ Calcium Gluconate 15 meq/ Multivitamins 10 ml/Chromium/ Copper/Manganese/ Seleni/Zn 0.5 ml/ Total Parenteral Nutrition/Amino Acids/Dextrose/ Fat Emulsion Intravenous 1,920 ml @ 80 mls/hr TPN CONT IV Last administered on 06/24/19at 22:26; Start 06/24/19 at 22:00; Stop 06/25/19 at 21:59; Status DC Sodium Phosphate 10 mmol/Magnesium Sulfate 5 meq/ Calcium Gluconate 15 meq/ Multivitamins 10 ml/Chromium/ Copper/Manganese/ Seleni/Zn 0.5 ml/ Total Parenteral Nutrition/Amino Acids/Dextrose/ Fat Emulsion Intravenous 1,920 ml @ 80 mls/hr TPN CONT IV Last administered on 06/25/19at 22:27; Start 06/25/19 at 22:00; Stop 06/26/19 at 21:59; Status DC Sodium Phosphate 10 mmol/Magnesium Sulfate 5 meq/ Calcium Gluconate 15 meq/ Multivitamins 10 ml/Chromium/ Copper/Manganese/ Seleni/Zn 0.5 ml/ Total Parenteral Nutrition/Amino Acids/Dextrose/ Fat Emulsion Intravenous 1,920 ml @ 80 mls/hr TPN CONT IV Last administered on 06/26/19at 21:57; Start 06/26/19 at 22:00; Stop 06/27/19 at 21:59; Status DC Furosemide (Lasix) 60 mg 1X ONCE IVP Last administered on 06/26/19at 12:22; Start 06/26/19 at 12:30; Stop 06/26/19 at 12:31; Status DC Dexmedetomidine HCl 400 mcg/ Sodium Chloride 100 ml @ 0 mls/hr CONT PRN IV ANXIETY / AGITATION Last administered on 07/07/19at 10:34; Start 06/26/19 at 19:00 Sodium Chloride 500 ml @ 500 mls/hr 1X PRN PRN IV SEE COMMENTS; Start 06/26/19 at 19:00 Atropine Sulfate (ATROPINE 0.5mg SYRINGE) 0.5 mg PRN Q5MIN PRN IV SEE COMMENTS; Start 06/26/19 at 19:00 Sodium Bicarbonate (Sodium Bicarb Adult 8.4% Syr) 50 meq 1X ONCE IV ; Start 06/26/19 at 19:30; Stop 06/26/19 at 19:23; Status DC Furosemide (Lasix) 40 mg DAILY IVP Last administered on 07/07/19at 08:25; Start 06/27/19 at 12:00 Propofol 100 ml @ As Directed STK-MED ONCE IV ; Start 06/27/19 at 11:51; Stop 06/27/19 at 11:51; Status DC Propofol 100 ml @ 6.588 mls/ hr CONT PRN IV SEE I/O RECORD Last administered on 07/05/19at 12:08; Start 06/27/19 at 12:00 Sodium Phosphate 10 mmol/Magnesium Sulfate 5 meq/ Calcium Gluconate 15 meq/ Multivitamins 10 ml/Chromium/ Copper/Manganese/ Seleni/Zn 0.5 ml/ Total Parenteral Nutrition/Amino Acids/Dextrose/ Fat Emulsion Intravenous 1,920 ml @ 80 mls/hr TPN CONT IV ; Start 06/27/19 at 22:00; Stop 06/27/19 at 12:55; Status DC Potassium Phosphate 10 mmol/ Magnesium Sulfate 5 meq/Calcium Gluconate 15 meq/ Multivitamins 10 ml/Chromium/ Copper/Manganese/ Seleni/Zn 0.5 ml/ Total Parenteral Nutrition/Amino Acids/Dextrose/ Fat Emulsion Intravenous 1,920 ml @ 80 mls/hr TPN CONT IV Last administered on 06/27/19at 21:38; Start 06/27/19 at 22:00; Stop 06/28/19 at 21:59; Status DC Potassium Chloride/Water 100 ml @ 50 mls/hr 1X ONCE IV Last administered on 06/28/19at 15:00; Start 06/28/19 at 15:00; Stop 06/28/19 at 16:59; Status DC Potassium Phosphate 10 mmol/ Magnesium Sulfate 5 meq/Calcium Gluconate 15 meq/ Multivitamins 10 ml/Chromium/ Copper/Manganese/ Seleni/Zn 0.5 ml/ Potassium Acetate 20 meq/Total Parenteral Nutrition/Amino Acids/Dextrose/ Fat Emulsion Intravenous 1,920 ml @ 80 mls/hr TPN CONT IV Last administered on 06/28/19at 22:14; Start 06/28/19 at 22:00; Stop 06/29/19 at 21:59; Status DC Potassium Chloride/Water 100 ml @ 50 mls/hr 1X ONCE IV Last administered on 06/29/19at 08:57; Start 06/29/19 at 09:00; Stop 06/29/19 at 10:59; Status DC Potassium Phosphate 10 mmol/ Magnesium Sulfate 5 meq/Calcium Gluconate 15 meq/ Multivitamins 10 ml/Chromium/ Copper/Manganese/ Seleni/Zn 0.5 ml/ Potassium Acetate 20 meq/Total Parenteral Nutrition/Amino Acids/Dextrose/ Fat Emulsion Intravenous 1,920 ml @ 80 mls/hr TPN CONT IV Last administered on 06/29/19at 21:32; Start 06/29/19 at 22:00; Stop 06/30/19 at 21:59; Status DC Potassium Phosphate 10 mmol/ Magnesium Sulfate 5 meq/Calcium Gluconate 15 meq/ Multivitamins 10 ml/Chromium/ Copper/Manganese/ Seleni/Zn 0.5 ml/ Potassium Acetate 20 meq/Total Parenteral Nutrition/Amino Acids/Dextrose 1,920 ml @ 80 mls/hr TPN CONT IV Last administered on 06/30/19at 21:38; Start 06/30/19 at 22:00; Stop 07/01/19 at 21:59; Status DC Potassium Phosphate 10 mmol/ Magnesium Sulfate 5 meq/Calcium Gluconate 15 meq/ Multivitamins 10 ml/Chromium/ Copper/Manganese/ Seleni/Zn 0.5 ml/ Potassium Acetate 10 meq/Total Parenteral Nutrition/Amino Acids/Dextrose 1,920 ml @ 80 mls/hr TPN CONT IV Last administered on 07/01/19at 21:30; Start 07/01/19 at 22:00; Stop 07/02/19 at 21:59; Status DC Potassium Phosphate 10 mmol/ Magnesium Sulfate 5 meq/Calcium Gluconate 15 meq/ Multivitamins 10 ml/Chromium/ Copper/Manganese/ Seleni/Zn 0.5 ml/ Potassium Acetate 10 meq/Total Parenteral Nutrition/Amino Acids/Dextrose 1,920 ml @ 80 mls/hr TPN CONT IV Last administered on 07/02/19at 21:36; Start 07/02/19 at 22:00; Stop 07/03/19 at 21:59; Status DC Daptomycin 520 mg/ Sodium Chloride 50 ml @ 100 mls/hr Q24H IV Last administered on 07/07/19at 10:34; Start 07/03/19 at 10:00 Insulin Glargine (Lantus Syringe) 30 unit BID SQ Last administered on 07/07/19at 08:16; Start 07/03/19 at 11:00 Insulin Human Lispro (HumaLOG) 0-9 UNITS Q6HRS SQ Last administered on 07/07/19at 06:19; Start 07/03/19 at 12:00 Dextrose (Dextrose 50%-Water Syringe) 12.5 gm PRN Q15MIN PRN IV SEE COMMENTS; Start 07/03/19 at 10:30 Potassium Acetate 10 meq/Potassium Phosphate 10 mmol/ Magnesium Sulfate 5 meq/Calcium Gluconate 15 meq/ Multivitamins 10 ml/Chromium/ Copper/Manganese/ Seleni/Zn 0.5 ml/ Total Parenteral Nutrition/Amino Acids/Dextrose 1,920 ml @ 80 mls/hr TPN CONT IV Last administered on 07/03/19at 21:26; Start 07/03/19 at 22:00; Stop 07/04/19 at 21:59; Status DC Linezolid/Dextrose 300 ml @ 300 mls/hr Q12HR IV Last administered on 07/07/19at 08:20; Start 07/04/19 at 09:00 Potassium Acetate 10 meq/Potassium Phosphate 10 mmol/ Magnesium Sulfate 5 meq/Calcium Gluconate 15 meq/ Multivitamins 10 ml/Chromium/ Copper/Manganese/ Seleni/Zn 0.5 ml/ Total Parenteral Nutrition/Amino Acids/Dextrose 1,920 ml @ 80 mls/hr TPN CONT IV Last administered on 07/04/19at 21:13; Start 07/04/19 at 22:00; Stop 07/05/19 at 21:59; Status DC Lidocaine HCl (Buffered Lidocaine 1%) 3 ml STK-MED ONCE .ROUTE ; Start 07/04/19 at 14:23; Stop 07/04/19 at 14:23; Status DC Iohexol (Omnipaque 240 Mg/ml) 50 ml STK-MED ONCE .ROUTE ; Start 07/04/19 at 14:23; Stop 07/04/19 at 14:24; Status DC Lidocaine HCl (Buffered Lidocaine 1%) 3 ml 1X ONCE INJ Last administered on 07/04/19at 15:34; Start 07/04/19 at 14:30; Stop 07/04/19 at 14:31; Status DC Iohexol (Omnipaque 240 Mg/ml) 50 ml 1X ONCE IJ Last administered on 07/04/19at 15:33; Start 07/04/19 at 14:30; Stop 07/04/19 at 14:31; Status DC Info (CONTRAST GIVEN -- Rx MONITORING) 1 each PRN DAILY PRN MC SEE COMMENTS; Start 07/04/19 at 14:30; Stop 07/06/19 at 14:29; Status DC Potassium Acetate 10 meq/Potassium Phosphate 10 mmol/ Magnesium Sulfate 5 meq/Calcium Gluconate 15 meq/ Multivitamins 10 ml/Chromium/ Copper/Manganese/ Seleni/Zn 0.5 ml/ Total Parenteral Nutrition/Amino Acids/Dextrose 1,920 ml @ 80 mls/hr TPN CONT IV Last administered on 07/05/19at 20:59; Start 07/05/19 at 22:00; Stop 07/06/19 at 21:59; Status DC Potassium Acetate 10 meq/Potassium Phosphate 10 mmol/ Magnesium Sulfate 5 meq/Calcium Gluconate 15 meq/ Multivitamins 10 ml/Chromium/ Copper/Manganese/ Seleni/Zn 0.5 ml/ Total Parenteral Nutrition/Amino Acids/Dextrose 1,920 ml @ 80 mls/hr TPN CONT IV Last administered on 07/06/19at 22:51; Start 07/06/19 at 22:00; Stop 07/07/19 at 21:59 Cefepime HCl (Maxipime) 2 gm Q8HRS IVP Last administered on 07/07/19at 05:59; Start 07/06/19 at 22:00 Metronidazole 100 ml @ 100 mls/hr Q8HRS IV Last administered on 07/07/19at 05:58; Start 07/06/19 at 22:00 Lidocaine HCl (Buffered Lidocaine 1%) 3 ml STK-MED ONCE .ROUTE ; Start 07/07/19 at 10:07; Stop 07/07/19 at 10:07; Status DC Iohexol (Omnipaque 240 Mg/ml) 50 ml STK-MED ONCE .ROUTE ; Start 07/07/19 at 10:0 7; Stop 07/07/19 at 10:07; Status DC Active Scripts Active Vitals/I & O Vital Sign - Last 24 Hours 07/06/19 07/06/19 07/06/19 07/06/19 12:00 12:00 12:42 13:00 Temp 101.1 100.9 101.1 100.9 Pulse 81 88 Resp 20 B/P (MAP) 111/67 (82) 104/65 (78) Pulse Ox 100 98 98 O2 Delivery Ventilator Mechanical Ventilator Ventilator Ventilator 07/06/19 07/06/19 07/06/19 07/06/19 14:00 15:00 15:01 16:00 Temp 100.8 100.6 100.8 100.6 Pulse 92 86 Resp 20 B/P (MAP) 105/64 (78) 105/65 (78) Pulse Ox 98 99 98 O2 Delivery Ventilator Ventilator Ventilator Mechanical Ventilator 07/06/19 07/06/19 07/06/19 07/06/19 16:00 17:22 17:36 18:00 Temp 100.4 100.4 100.4 100.4 Pulse 86 82 Resp 20 B/P (MAP) 106/64 (78) 107/61 (76) Pulse Ox 99 99 100 100 O2 Delivery Ventilator Ventilator Ventilator Ventilator 07/06/19 07/06/19 07/06/19 07/06/19 18:53 19:00 19:07 20:00 Temp 100.6 100.4 100.4 100.4 100.6 100.4 100.4 100.4 Pulse 82 82 81 82 Resp 20 20 20 B/P (MAP) 105/68 110/61 (77) 107/68 107/61 (76) Pulse Ox 100 100 O2 Delivery Ventilator Ventilator 07/06/19 07/06/19 07/06/19 07/06/19 20:00 20:43 21:00 21:32 Temp 100.2 100.2 Pulse 82 Resp 20 B/P (MAP) 107/61 (76) Pulse Ox 98 100 100 O2 Delivery Mechanical Ventilator Ventilator Ventilator O2 Flow Rate 3.0 07/06/19 07/06/19 07/06/19 07/07/19 22:00 23:00 23:25 00:00 Temp 100.0 100.0 100.0 100.0 Pulse 80 81 Resp 20 20 B/P (MAP) 112/69 (83) 110/73 (85) Pulse Ox 100 100 98 O2 Delivery Ventilator Ventilator Ventilator Mechanical Ventilator 07/07/19 07/07/19 07/07/19 07/07/19 00:01 01:00 01:44 02:00 Temp 100.0 100.0 100.2 100.0 100.0 100.2 Pulse 80 80 81 Resp 20 20 20 B/P (MAP) 118/70 (86) 113/72 (86) 116/73 (87) Pulse Ox 100 100 98 100 O2 Delivery Ventilator Ventilator Ventilator Ventilator 07/07/19 07/07/19 07/07/19 07/07/19 03:00 03:41 04:00 04:00 Temp 100.2 100.2 100.2 100.2 Pulse 78 77 Resp 20 20 B/P (MAP) 107/68 (81) 106/70 (82) Pulse Ox 100 98 99 O2 Delivery Ventilator Ventilator Ventilator Mechanical Ventilator 07/07/19 07/07/19 07/07/19 07/07/19 05:00 05:24 06:00 07:00 Temp 100.2 100.2 99.7 100.2 100.2 99.7 Pulse 76 76 75 Resp 20 20 20 B/P (MAP) 105/67 (80) 111/66 (81) 100/62 (75) Pulse Ox 97 98 99 98 O2 Delivery Ventilator Ventilator Ventilator Ventilator 07/07/19 07/07/19 07/07/19 07/07/19 08:00 08:00 08:19 09:00 Temp 99.7 99.7 99.7 99.7 Pulse 75 82 Resp 20 20 B/P (MAP) 102/73 (83) 103/61 (75) Pulse Ox 100 99 98 O2 Delivery Ventilator Mechanical Ventilator Ventilator Ventilator 07/07/19 07/07/19 10:00 11:00 Temp 100.4 100.6 100.4 100.6 Pulse 86 83 Resp 20 20 B/P (MAP) 115/64 (81) 111/68 (82) Pulse Ox 98 98 O2 Delivery Ventilator Ventilator Intake and Output 07/06/19 07/06/19 07/07/19 15:00 23:00 07:00 Intake Total 450 ml 1907 ml 100 ml Output Total 1580 ml 1235 ml 1050 ml Balance -1130 ml 672 ml -950 ml Hemodynamically unstable?: No Is patient in severe pain?: No Is NPO status required?: Yes JERSON AVILES MD Jul 07, 2019 11:21
--- NOTE | 2019-07-07 12:33 | PDOC ---
PULMONARY PROGRESS NOTES Subjective ON AC MODE Vitals Vital Signs Date Time Temp Pulse Resp B/P (MAP) Pulse Ox O2 Delivery O2 Flow Rate FiO2 07/07/19 12:00 101.1 87 20 120/71 (87) 98 Ventilator 101.1 07/06/19 21:32 3.0 Comments ros unable to obtain sedated on vent HEENT: Other (nc at perrl nose clear, neck, trach site ok, no lad, no thyromegaly) Lungs: Crackles Cardiovascular: S1, S2 Abdomen: Other (/distended/firm ) Extremities: No Edema Skin: Warm Labs Laboratory Tests Test 07/05/19 18:43 07/05/19 20:54 07/06/19 00:14 07/06/19 05:58 Glucose (Fingerstick) 141 mg/dL (70-99) 146 mg/dL (70-99) 173 mg/dL (70-99) 155 mg/dL (70-99) Test 07/06/19 07:15 07/06/19 08:00 07/06/19 12:23 07/06/19 17:47 White Blood Count 13.9 x10^3/uL (4.0-11.0) Red Blood Count 2.44 x10^6/uL (4.30-5.70) Hemoglobin 7.0 g/dL (13.0-17.5) Hematocrit 22.7 % (39.0-53.0) Mean Corpuscular Volume 93 fL (79-100) Mean Corpuscular Hemoglobin 29 pg (25-35) Mean Corpuscular Hemoglobin Concent 31 g/dL (31-37) Red Cell Distribution Width 15.4 % (11.5-14.5) Platelet Count 478 x10^3/uL (140-400) Neutrophils (%) (Auto) 81 % (31-73) Lymphocytes (%) (Auto) 8 % (24-48) Monocytes (%) (Auto) 9 % (0-9) Eosinophils (%) (Auto) 1 % (0-3) Basophils (%) (Auto) 1 % (0-3) Neutrophils # (Auto) 11.3 x10^3/uL (1.8-7.7) Lymphocytes # (Auto) 1.1 x10^3/uL (1.0-4.8) Monocytes # (Auto) 1.3 x10^3/uL (0.0-1.1) Eosinophils # (Auto) 0.1 x10^3/uL (0.0-0.7) Basophils # (Auto) 0.1 x10^3/uL (0.0-0.2) O2 Saturation 96 % (92-99) Arterial Blood pH 7.45 (7.35-7.45) Arterial Blood pCO2 at Patient Temp 40 mmHg (35-46) Arterial Blood pO2 at Patient Temp 89 mmHg (75-108) Arterial Blood HCO3 27 mmol/L (21-28) Arterial Blood Base Excess 3 mmol/L (-3-3) FiO2 40 Glucose (Fingerstick) 195 mg/dL (70-99) 156 mg/dL (70-99) Test 07/07/19 01:01 07/07/19 06:04 07/07/19 06:10 07/07/19 08:30 Glucose (Fingerstick) 212 mg/dL (70-99) 194 mg/dL (70-99) White Blood Count 13.6 x10^3/uL (4.0-11.0) Red Blood Count 2.84 x10^6/uL (4.30-5.70) Hemoglobin 8.3 g/dL (13.0-17.5) Hematocrit 25.5 % (39.0-53.0) Mean Corpuscular Volume 90 fL (79-100) Mean Corpuscular Hemoglobin 29 pg (25-35) Mean Corpuscular Hemoglobin Concent 32 g/dL (31-37) Red Cell Distribution Width 14.7 % (11.5-14.5) Platelet Count 515 x10^3/uL (140-400) Neutrophils (%) (Auto) 82 % (31-73) Lymphocytes (%) (Auto) 9 % (24-48) Monocytes (%) (Auto) 8 % (0-9) Eosinophils (%) (Auto) 1 % (0-3) Basophils (%) (Auto) 1 % (0-3) Neutrophils # (Auto) 11.2 x10^3/uL (1.8-7.7) Lymphocytes # (Auto) 1.2 x10^3/uL (1.0-4.8) Monocytes # (Auto) 1.1 x10^3/uL (0.0-1.1) Eosinophils # (Auto) 0.1 x10^3/uL (0.0-0.7) Basophils # (Auto) 0.1 x10^3/uL (0.0-0.2) Sodium Level 146 mmol/L (136-145) Potassium Level 4.3 mmol/L (3.5-5.1) Chloride Level 111 mmol/L (98-107) Carbon Dioxide Level 28 mmol/L (21-32) Anion Gap 7 (6-14) Blood Urea Nitrogen 39 mg/dL (8-26) Creatinine 0.9 mg/dL (0.7-1.3) Estimated GFR (Cockcroft-Gault) 108.5 Glucose Level 213 mg/dL (70-99) Calcium Level 8.3 mg/dL (8.5-10.1) Phosphorus Level 3.3 mg/dL (2.6-4.7) Magnesium Level 1.8 mg/dL (1.8-2.4) O2 Saturation 96 % (92-99) Arterial Blood pH 7.42 (7.35-7.45) Arterial Blood pCO2 at Patient Temp 42 mmHg (35-46) Arterial Blood pO2 at Patient Temp 92 mmHg (75-108) Arterial Blood HCO3 27 mmol/L (21-28) Arterial Blood Base Excess 2 mmol/L (-3-3) FiO2 40 Test 07/07/19 12:12 Glucose (Fingerstick) 193 mg/dL (70-99) Laboratory Tests Test 07/06/19 17:47 07/07/19 01:01 07/07/19 06:04 07/07/19 06:10 Glucose (Fingerstick) 156 mg/dL (70-99) 212 mg/dL (70-99) 194 mg/dL (70-99) White Blood Count 13.6 x10^3/uL (4.0-11.0) Red Blood Count 2.84 x10^6/uL (4.30-5.70) Hemoglobin 8.3 g/dL (13.0-17.5) Hematocrit 25.5 % (39.0-53.0) Mean Corpuscular Volume 90 fL (79-100) Mean Corpuscular Hemoglobin 29 pg (25-35) Mean Corpuscular Hemoglobin Concent 32 g/dL (31-37) Red Cell Distribution Width 14.7 % (11.5-14.5) Platelet Count 515 x10^3/uL (140-400) Neutrophils (%) (Auto) 82 % (31-73) Lymphocytes (%) (Auto) 9 % (24-48) Monocytes (%) (Auto) 8 % (0-9) Eosinophils (%) (Auto) 1 % (0-3) Basophils (%) (Auto) 1 % (0-3) Neutrophils # (Auto) 11.2 x10^3/uL (1.8-7.7) Lymphocytes # (Auto) 1.2 x10^3/uL (1.0-4.8) Monocytes # (Auto) 1.1 x10^3/uL (0.0-1.1) Eosinophils # (Auto) 0.1 x10^3/uL (0.0-0.7) Basophils # (Auto) 0.1 x10^3/uL (0.0-0.2) Sodium Level 146 mmol/L (136-145) Potassium Level 4.3 mmol/L (3.5-5.1) Chloride Level 111 mmol/L (98-107) Carbon Dioxide Level 28 mmol/L (21-32) Anion Gap 7 (6-14) Blood Urea Nitrogen 39 mg/dL (8-26) Creatinine 0.9 mg/dL (0.7-1.3) Estimated GFR (Cockcroft-Gault) 108.5 Glucose Level 213 mg/dL (70-99) Calcium Level 8.3 mg/dL (8.5-10.1) Phosphorus Level 3.3 mg/dL (2.6-4.7) Magnesium Level 1.8 mg/dL (1.8-2.4) Test 07/07/19 08:30 07/07/19 12:12 O2 Saturation 96 % (92-99) Arterial Blood pH 7.42 (7.35-7.45) Arterial Blood pCO2 at Patient Temp 42 mmHg (35-46) Arterial Blood pO2 at Patient Temp 92 mmHg (75-108) Arterial Blood HCO3 27 mmol/L (21-28) Arterial Blood Base Excess 2 mmol/L (-3-3) FiO2 40 Glucose (Fingerstick) 193 mg/dL (70-99) Medications Active Scripts Medications Dose Route/Sig Max Daily Dose Days Date Category Comments ct of chest and abd 1. Redemonstrated sequela of necrotic pancreatitis. As before there is extensive mesenteric edema but the volume of free abdominopelvic fluid has decreased. Edematous enlargement of the pancreas has slightly decreased. A fluid collection along the undersurface of the stomach has decreased in size, as detailed above. A loculated appearing fluid collection within the mid abdomen anterior to the IVC and aorta (image 55 series 4) measures similar to the prior. Ill-defined area of hypoattenuation involving the mid pancreatic body is slightly more conspicuous from the prior (image 37 series 4). It is uncertain if this represents evolving parenchymal necrosis or a developing fluid collection as assessment is limited without intravenous contrast. No air and fluid containing collection seen to suggest an abscess but note is made that the sterility of the aforementioned fluid collections is indeterminate by the imaging appearance alone. 2. Extensive reactive inflammatory changes of the abdominopelvic organs. No findings of bowel obstruction. 3. A gastrostomy tube has been placed in the interim. The tube tip is not within the stomach and is seen at the distal end of the surgical tract just deep to the ventral body wall musculature - sagittal images 35 and 36 series 9. 4. Three abdominal drains. No discrete fluid collection surrounding the tips of these drains. Cholecystostomy tube, ET tube, enteric tube, Lobato and right PICC are appropriately positioned. 5. Partial collapse of the left more so than right lower lobes. Moderate-sized left pleural effusion with overlying atelectasis. No infiltrate typical of an organizing pneumonia identified. Impression . IMPRESSION: 1. Acute hypoxemic respiratory failure, multifactorial. 2. Acute gallstone pancreatitis./ Necrosis. s/p Exploratory laparotomy, pancreatic necrosectomy, cholecystostomy tube placement, Gastrostomy placement with jejunal extension, tracheostomy placement (specifically 8 shiley cuffed) 3/8 3. Acute kidney failure. improving 4. Metabolic toxic encephalopathy. 5. Hyperkalemia.corrected 6. Metabolic / respiratory acidosis 7. Hypocalcemia. 8. POSSIBLE ABD COMPARTMENT SYNDROME , s/p Exp lap 9. HEP B S POSITIVE 10. Hypernatremia, resolved 11. LLL small effusion, monitor 12. FEVER PER ID Plan . PT WITH CONTINUED FEVER SPOKE WITH DR MONROE HE WILL DC PICC LINE AND PLACE A NEW LINE J TUBE TO BE CHANGED CONTINUE VENT SUPPORT D/C ID CONTINUE ANTIBX EFFUSION WILL MONITOR FOLLOW SURGERY INPUT D/W RN AND PHYSICIANS CCT 35 DESTINI ZAZUETA MD Jul 07, 2019 12:33
[2019-07-07] MEDS: TPN PER PHARMACY MC PRN (13:23)
[2019-07-07] MEDS ORDERED: LIDOCAINE WITH 8.4% SOD BICARB 3 ML DISP.SYRIN. IJ ONE (14:00)
[2019-07-07] MEDS ORDERED: IOHEXOL 240 MG/ML 50ML VIAL. IJ ONE (14:00)
--- NOTE | 2019-07-07 14:20 | NUR ---
Pharmacy TPN Dosing Note S: CHRISTOPHER NEWSOME is a 49 year old M Currently receiving Central Continuous TPN started 06/19/19 B:Pertinent PMH: PANCREATITIS Height: 5 feet, 9 inches Weight: 105.978042 kg Current diet: NPO LABS: Sodium: 146 Potassium: 4.3 Chloride: 111 Calcium: 8.3 Corrected Calcium: 10.70 Magnesium: 1.8 CO2: 28 SCr: 0.9 Glucose: 214 Albumin: 1.0 AST: 62 ALT: 62 TPN FORMULA: TPN TYPE: Central Continuous AMINO ACIDS: 145 gm DEXTROSE: 225 gm LIPIDS: - gm SODIUM CHLORIDE: mEq SODIUM ACETATE: mEq SODIUM PHOSPHATE: - mmol POTASSIUM CHLORIDE: mEq POTASSIUM ACETATE: 10 mEq POTASSIUM PHOSPHATE: 10 mmol MAGNESIUM: 10 mEq CALCIUM: 10 mEq INSULIN: - units MULTIPLE VITAMIN: 10 ml TRACE ELEMENTS: 0.5 ml(s) TPN PLAN: increase dextrose to 225gm, decrease magso4 10 meq, calcium 10 meq, kphos to 10 mmol R: Continue TPN AT 80 ML/HR Will monitor electrolytes, glucose, and tolerance to TPN. [facility], 07/07/19 1428
[2019-07-07] MEDS: fentaNYL HIGH DOSE PCA 55 ML IV PRN (15:22)
--- NOTE | 2019-07-07 17:30 | NUR ---
redressed drains on abdomen. cleansed with chloraprep and gauze with tape. abdomen firm and tender to touch. wound vac intact on mid abdomen. at bedside. trach care done this am. along with oral care [id number]. drs aware pt running a temperature. picc line discontinued and tip sent to lab for culture.
[2019-07-07] MEDS: ACETAMINOPHEN 650 MG SUPP.RECT. PR PRN (18:42)
[2019-07-07] MEDS ORDERED: AMINO ACID IV SCH ×8 (22:00)
[2019-07-07] MEDS ORDERED: DEXTROSE 70% IV SCH ×8 (22:00)
[2019-07-07] MEDS ORDERED: TOTAL PARENTERAL NUTRITION IV SCH ×8 (22:00)
[2019-07-07] MEDS ORDERED: [UNRECOGNIZED DRUG - OTHER] IV SCH ×8 (22:00)
[2019-07-08] VITALS (23 sets, daily range): BP systolic 88–133; BP diastolic 50–86
[2019-07-08] MEDS: DEXMEDETOMIDINE 400 MCG in IV NORMAL SALINE 100ML 96 ML IV PRN ×9 (01:27→21:48)
[2019-07-08] MEDS: IV NORMAL SALINE 1000ML BAG 1,000 ML IV SCH ×2 (05:48→20:31)
[2019-07-08] MEDS: PANTOPRAZOLE IV PUSH 40 MG VIAL. IVP SCH ×2 (05:49→16:46)
[2019-07-08] MEDS: CEFEPIME HCL IV Push 2 GM VIAL. IVP SCH ×3 (05:49→21:48)
[2019-07-08] MEDS: INSULIN LISPRO 300 UNITS/3 ML VIAL. SQ SCH ×4 (05:50→23:50)
[2019-07-08] MEDS: ENOXAPARIN 40 MG/0.4 ML SYRINGE. SQ SCH (06:02)
[2019-07-08 06:46] LABS: BASO % 0 % (0-3); EOS # 0.1 x10^3/uL (0.0-0.7); EOS % 1 % (0-3); HEMATOCRIT 24.6 % (39.0-53.0); HEMOGLOBIN 7.9 g/dL (13.0-17.5); LYMPH # 1.1 x10^3/uL (1.0-4.8); LYMPH % 7 % (24-48); MEAN CORPUSCULAR HEMOGLOBIN 29 pg (25-35); MEAN CORPUSCULAR HGB CONC 32 g/dL (31-37); MEAN CORPUSCULAR VOLUME 90 fL (79-100); MONO # 1.3 x10^3/uL (0.0-1.1); MONO % 9 % (0-9); NEUT # 12.2 x10^3/uL (1.8-7.7); NEUT % 83 % (31-73); PLATELET COUNT 452 x10^3/uL (140-400); RED BLOOD COUNT 2.75 x10^6/uL (4.30-5.70); WHITE BLOOD COUNT 14.7 x10^3/uL (4.0-11.0)
[2019-07-08 07:07] LABS: ALBUMIN/GLOBULIN RATIO 0.2 (1.0-1.7); CREATININE 0.8 mg/dL (0.7-1.3); GFR 124.3; POTASSIUM 3.9 mmol/L (3.5-5.1); TOTAL BILIRUBIN 3.9 mg/dL (0.2-1.0); TOTAL PROTEIN 6.5 g/dL (6.4-8.2)
[2019-07-08] MEDS: ALBUTEROL SULFATE 2.5 MG/3 ML NEBU. NEB SCH ×4 (08:16→20:04)
[2019-07-08 08:43] LABS: BASE EXCESS ABG 1 mmol/L (-3-3); HCO3 ABG 26 mmol/L (21-28); PCO2 ABG 41 mmHg (35-46); PO2 ABG 100 mmHg (75-108); SAT O2 ABG 97 % (92-99)
[2019-07-08 08:45] LABS: FIO2 ABG 40
[2019-07-08] MEDS: MIDAZOLAM HCL 50 MG in IV NORMAL SALINE 50ML 50 ML IV PRN ×3 (08:48→17:38)
[2019-07-08] MEDS: FUROSEMIDE 40 MG/4 ML VIAL. IVP SCH (08:49)
--- NOTE | 2019-07-08 08:49 | RAD ---
Procedure: 1. Left internal jugular central line placement. 07/07/2019 2. Conversion of a gastrostomy tube to gastrojejunostomy tube 07/07/2019 Indication: 1. Enteric feeding. Aspiration risk 2.Fever, PICC line removal. Multiple IV medications. Sterility: All elements of maximal sterile barrier technique including the use of a cap, mask, sterile gown, sterile gloves, large sterile sheet, appropriate hand hygiene, and 2% chlorhexidine for cutaneous antisepsis (or acceptable alternative antiseptic per current guidelines) were followed for this procedure. Consent: The procedure was explained in its entirety to the patient or the patients designated digital media representative by a member of the treatment team, including a discussion of the risks, benefits and commonly accepted alternatives to the procedure, as well as the expected consequences of no therapy whatsoever. Discussion of the risks included, but was not limited to, those that are most frequent and those that are rare but possibly severe or life-threatening, as well as the possibility of unforeseen complications. Technique and Findings: Following informed consent, the patient was prepped and draped in the usual sterile fashion. Ultrasound interrogation of the left neck revealed patency and compressibility of the left internal jugular vein. A 21-gauge micropuncture needle was used to gain access to this vein after 1% Lidocaine was used to achieve local anesthesia. A hardcopy ultrasound image was recorded. The needle was exchanged over a wire for serial dilators followed by a triple-lumen central venous catheter which was deployed under fluoroscopic guidance such that the distal tip resided in the mid right atrium. The catheter flow rates were assessed manually and found to be excellent. The catheter was then flushed, packed with Heparin, capped, and sutured to the skin. No immediate complications were identified. The anterior abdomen was prepped and draped using sterile barrier technique. The pre-existing gastrostomy tube was evaluated fluoroscopically and found to be in acceptable position. A guidewire was advanced through this tube into the jejunum. The pre-existing catheter was removed over the wire and replaced the new gastrojejunostomy tube. Contrast was administered confirming appropriate positioning. The catheter secured in place. Sterile dressings were applied. Total fluoroscopy time: 5.4 minutes Dose area product: 31 Gycm2 Impression: 1. Ultrasound and fluoroscopic guided placement of a left internal jugular triple-lumen central venous catheter 2. Conversion of a gastrostomy tube to gastrojejunostomy tube
[2019-07-08] MEDS: INSULIN GLARGINE SYRINGE. SQ SCH ×2 (08:55→20:35)
[2019-07-08] MEDS: DAPTOmycin (GENERIC) IVPB 520 MG in IV NORMAL SALINE 50ML 50 ML IV SCH (08:59)
--- NOTE | 2019-07-08 09:03 | PDOC ---
Infectious Disease Note Subjective Subjective Lower core temps Sedated Trach/vent, FiO2 40% 5 PEEP TPN ROS ROS unable to obtain Vital Sign Vital Signs Vital Signs Date Time Temp Pulse Resp B/P (MAP) Pulse Ox O2 Delivery O2 Flow Rate FiO2 07/08/19 08:17 100 Ventilator 07/08/19 07:00 99.1 80 24 110/69 (83) 99.1 Physical Exam PHYSICAL EXAM GENERAL: Sedated, trached/vent HEENT: Pupils equal reactive NECK: Trach/vent LUNGS: Diminished aeration bases HEART: S1, S2, regular, no murmurs. ABDOMEN: Distended, fairly tight today, bowel sounds quiet, drains x5, wound vac in place : Lobato in place 2 plus edema EXTREMITIES: 1+ - 2 edema, no cyanosis. SCDs bilaterally SKIN: Warm, dry. 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 DIRECTOR OF ASSESSMENT: Sedated Left IJ - clean.Previous RT PICC line clean stie (07/01) - clean Labs Lab Laboratory Tests Test 07/07/19 12:12 07/07/19 18:08 07/07/19 21:07 07/07/19 23:41 Glucose (Fingerstick) 193 mg/dL (70-99) 107 mg/dL (70-99) 121 mg/dL (70-99) 135 mg/dL (70-99) Test 07/08/19 05:45 07/08/19 06:15 07/08/19 08:30 Glucose (Fingerstick) 122 mg/dL (70-99) White Blood Count 14.7 x10^3/uL (4.0-11.0) Red Blood Count 2.75 x10^6/uL (4.30-5.70) Hemoglobin 7.9 g/dL (13.0-17.5) Hematocrit 24.6 % (39.0-53.0) Mean Corpuscular Volume 90 fL (79-100) Mean Corpuscular Hemoglobin 29 pg (25-35) Mean Corpuscular Hemoglobin Concent 32 g/dL (31-37) Red Cell Distribution Width 15.0 % (11.5-14.5) Platelet Count 452 x10^3/uL (140-400) Neutrophils (%) (Auto) 83 % (31-73) Lymphocytes (%) (Auto) 7 % (24-48) Monocytes (%) (Auto) 9 % (0-9) Eosinophils (%) (Auto) 1 % (0-3) Basophils (%) (Auto) 0 % (0-3) Neutrophils # (Auto) 12.2 x10^3/uL (1.8-7.7) Lymphocytes # (Auto) 1.1 x10^3/uL (1.0-4.8) Monocytes # (Auto) 1.3 x10^3/uL (0.0-1.1) Eosinophils # (Auto) 0.1 x10^3/uL (0.0-0.7) Basophils # (Auto) 0.0 x10^3/uL (0.0-0.2) Sodium Level 149 mmol/L (136-145) Potassium Level 3.9 mmol/L (3.5-5.1) Chloride Level 114 mmol/L (98-107) Carbon Dioxide Level 28 mmol/L (21-32) Anion Gap 7 (6-14) Blood Urea Nitrogen 34 mg/dL (8-26) Creatinine 0.8 mg/dL (0.7-1.3) Estimated GFR (Cockcroft-Gault) 124.3 BUN/Creatinine Ratio 43 (6-20) Glucose Level 127 mg/dL (70-99) Calcium Level 8.0 mg/dL (8.5-10.1) Total Bilirubin 3.9 mg/dL (0.2-1.0) Aspartate Amino Transf (AST/SGOT) 63 U/L (15-37) Alanine Aminotransferase (ALT/SGPT) 77 U/L (16-63) Alkaline Phosphatase 266 U/L (46-116) Total Protein 6.5 g/dL (6.4-8.2) Albumin 1.0 g/dL (3.4-5.0) Albumin/Globulin Ratio 0.2 (1.0-1.7) Triglycerides Level 164 mg/dL (0-150) O2 Saturation 97 % (92-99) Arterial Blood pH 7.42 (7.35-7.45) Arterial Blood pCO2 at Patient Temp 41 mmHg (35-46) Arterial Blood pO2 at Patient Temp 100 mmHg (75-108) Arterial Blood HCO3 26 mmol/L (21-28) Arterial Blood Base Excess 1 mmol/L (-3-3) FiO2 [address] 3/2 Lower chest: Moderate left and small right pleural effusions with adjacent atelectasis. Abdomen and pelvis: Severe findings of pancreatitis. Diffuse hypoattenuation of the pancreas, concerning for necrosis. Evaluation degraded without IV contrast. Fluid collection along the inferior aspect of the stomach measures 9.6 x 4.0 cm. Loculated fluid collection along the anterior aspect of the pancreas measures 3.0 x 2.6 cm. Severe inflammatory changes extending inferiorly. Small perihepatic free fluid. Bilateral perinephric inflammatory changes. Cholelithiasis. The liver, spleen, adrenal glands and kidneys are unremarkable noncontrast appearance. No hydronephrosis. Regions of colonic wall thickening, likely reactive. Normal appendix. Enteric tube within the stomach. No evidence of small bowel obstruction. Duodenal proximal jejunal wall thickening, likely reactive. Multiple enlarged mesenteric lymph nodes.. Catheter within the urinary bladder. Mild body wall edema. Impression: 1. Increased severe pancreatitis with extensive inflammatory changes and hypoattenuation of the pancreas, concerning for necrosis although evaluation degraded without IV contrast. 2. New fluid collection along the inferior aspect of the stomach and anterior aspect of the pancreas. 3. Increased multifocal colonic and small bowel wall thickening, likely reactive. 4. New small perihepatic free fluid. 5. Cholelithiasis. 6. Mesenteric lymphadenopathy, likely reactive. 7. Moderate left and small right pleural effusion with adjacent atelectasis. Microbiology 06/14/19 Blood Culture - Preliminary, Resulted NO GROWTH AFTER 1 DAY Objective Assessment Fever - core temps better ? pancreatitis/abd distension/pleural effusion/occlusive clot in cephalic - blood cults 07/05 - neg - Lines changed 07/06 PICC to LIJ S/p Jejunostomy placement 07/06 per nursing - report no available Leukocytosis - mild increase - ? reactive given procedure S/p PRBCs 07/05 Gallbladder stone pancreatitis s/p expl lap, pancreatic necrosectomy, cholecystostomy tube placement, G-tube placement with jejunal extension, 06/21 -gastrostomy tube repositioned by IR 07/03 per nursing - d/w Dr. Mcdonough Intra-abd fluid collections Sepsis from GI - cult neg Acute Resp failure - s/p trach 06/21, vent dependent Lactic acidosis. Acute kidney injury previously requiring dialysis - now with improved UOP, HDC now out Metabolic acidosis. Hypocalcemia Right arm swelling, + occlusive thrombosis within the cephalic vein, no DVT on US Plan Plan of Care Yeast in sputum from 07/03 likely represents colonization - was on antifungal when collected CBC/cmp in am Repeat Blood cults - pending 07/05 Await Pulm F/u re CT ? if fluid can be drawn off left side based on CT D/c'd Meropenem and started Cefepime/Flagyl 07/05 Discontinued micafungin - try to taper some meds (06/19 - 07/06) Cont daptomycin (07/02); restarted Zyvox (07/03) ( better lung penetration) Pancultures (07/03) neg so far Maintain aspiration precaution. Gen surgery following D/w nursing Critically ill LE CROWLEY MD Jul 08, 2019 09:02
--- NOTE | 2019-07-08 09:03 | PDOC ---
SURGICAL PROGRESS NOTE Subjective d/w nurse gj tube exchanged Vital Signs Vital Signs Date Time Temp Pulse Resp B/P (MAP) Pulse Ox O2 Delivery O2 Flow Rate FiO2 07/08/19 08:17 100 Ventilator 07/08/19 07:00 99.1 80 24 110/69 (83) 99.1 I&O Intake and Output 07/08/19 07:00 Intake Total 4167 ml Output Total 5790 ml Balance -1623 ml IV Total 4167 ml Output Urine Total 3520 ml Gastric Drainage Total 2120 ml Drainage Total 150 ml PATIENT HAS A LEPE: Yes General: Other (sedated ) HEENT: Other (vent/trach intact ) Abdomen: Soft, Other (drains in place, distended ) Labs Laboratory Tests Test 07/06/19 12:23 07/06/19 17:47 07/07/19 01:01 07/07/19 06:04 Glucose (Fingerstick) 195 mg/dL (70-99) 156 mg/dL (70-99) 212 mg/dL (70-99) 194 mg/dL (70-99) Test 07/07/19 06:10 07/07/19 08:30 07/07/19 12:12 07/07/19 18:08 White Blood Count 13.6 x10^3/uL (4.0-11.0) Red Blood Count 2.84 x10^6/uL (4.30-5.70) Hemoglobin 8.3 g/dL (13.0-17.5) Hematocrit 25.5 % (39.0-53.0) Mean Corpuscular Volume 90 fL (79-100) Mean Corpuscular Hemoglobin 29 pg (25-35) Mean Corpuscular Hemoglobin Concent 32 g/dL (31-37) Red Cell Distribution Width 14.7 % (11.5-14.5) Platelet Count 515 x10^3/uL (140-400) Neutrophils (%) (Auto) 82 % (31-73) Lymphocytes (%) (Auto) 9 % (24-48) Monocytes (%) (Auto) 8 % (0-9) Eosinophils (%) (Auto) 1 % (0-3) Basophils (%) (Auto) 1 % (0-3) Neutrophils # (Auto) 11.2 x10^3/uL (1.8-7.7) Lymphocytes # (Auto) 1.2 x10^3/uL (1.0-4.8) Monocytes # (Auto) 1.1 x10^3/uL (0.0-1.1) Eosinophils # (Auto) 0.1 x10^3/uL (0.0-0.7) Basophils # (Auto) 0.1 x10^3/uL (0.0-0.2) Sodium Level 146 mmol/L (136-145) Potassium Level 4.3 mmol/L (3.5-5.1) Chloride Level 111 mmol/L (98-107) Carbon Dioxide Level 28 mmol/L (21-32) Anion Gap 7 (6-14) Blood Urea Nitrogen 39 mg/dL (8-26) Creatinine 0.9 mg/dL (0.7-1.3) Estimated GFR (Cockcroft-Gault) 108.5 Glucose Level 213 mg/dL (70-99) Calcium Level 8.3 mg/dL (8.5-10.1) Phosphorus Level 3.3 mg/dL (2.6-4.7) Magnesium Level 1.8 mg/dL (1.8-2.4) O2 Saturation 96 % (92-99) Arterial Blood pH 7.42 (7.35-7.45) Arterial Blood pCO2 at Patient Temp 42 mmHg (35-46) Arterial Blood pO2 at Patient Temp 92 mmHg (75-108) Arterial Blood HCO3 27 mmol/L (21-28) Arterial Blood Base Excess 2 mmol/L (-3-3) FiO2 40 Glucose (Fingerstick) 193 mg/dL (70-99) 107 mg/dL (70-99) Test 07/07/19 21:07 07/07/19 23:41 07/08/19 05:45 07/08/19 06:15 Glucose (Fingerstick) 121 mg/dL (70-99) 135 mg/dL (70-99) 122 mg/dL (70-99) White Blood Count 14.7 x10^3/uL (4.0-11.0) Red Blood Count 2.75 x10^6/uL (4.30-5.70) Hemoglobin 7.9 g/dL (13.0-17.5) Hematocrit 24.6 % (39.0-53.0) Mean Corpuscular Volume 90 fL (79-100) Mean Corpuscular Hemoglobin 29 pg (25-35) Mean Corpuscular Hemoglobin Concent 32 g/dL (31-37) Red Cell Distribution Width 15.0 % (11.5-14.5) Platelet Count 452 x10^3/uL (140-400) Neutrophils (%) (Auto) 83 % (31-73) Lymphocytes (%) (Auto) 7 % (24-48) Monocytes (%) (Auto) 9 % (0-9) Eosinophils (%) (Auto) 1 % (0-3) Basophils (%) (Auto) 0 % (0-3) Neutrophils # (Auto) 12.2 x10^3/uL (1.8-7.7) Lymphocytes # (Auto) 1.1 x10^3/uL (1.0-4.8) Monocytes # (Auto) 1.3 x10^3/uL (0.0-1.1) Eosinophils # (Auto) 0.1 x10^3/uL (0.0-0.7) Basophils # (Auto) 0.0 x10^3/uL (0.0-0.2) Sodium Level 149 mmol/L (136-145) Potassium Level 3.9 mmol/L (3.5-5.1) Chloride Level 114 mmol/L (98-107) Carbon Dioxide Level 28 mmol/L (21-32) Anion Gap 7 (6-14) Blood Urea Nitrogen 34 mg/dL (8-26) Creatinine 0.8 mg/dL (0.7-1.3) Estimated GFR (Cockcroft-Gault) 124.3 BUN/Creatinine Ratio 43 (6-20) Glucose Level 127 mg/dL (70-99) Calcium Level 8.0 mg/dL (8.5-10.1) Total Bilirubin 3.9 mg/dL (0.2-1.0) Aspartate Amino Transf (AST/SGOT) 63 U/L (15-37) Alanine Aminotransferase (ALT/SGPT) 77 U/L (16-63) Alkaline Phosphatase 266 U/L (46-116) Total Protein 6.5 g/dL (6.4-8.2) Albumin 1.0 g/dL (3.4-5.0) Albumin/Globulin Ratio 0.2 (1.0-1.7) Triglycerides Level 164 mg/dL (0-150) Test 07/08/19 08:30 O2 Saturation 97 % (92-99) Arterial Blood pH 7.42 (7.35-7.45) Arterial Blood pCO2 at Patient Temp 41 mmHg (35-46) Arterial Blood pO2 at Patient Temp 100 mmHg (75-108) Arterial Blood HCO3 26 mmol/L (21-28) Arterial Blood Base Excess 1 mmol/L (-3-3) FiO2 40 Laboratory Tests Test 07/07/19 12:12 07/07/19 18:08 07/07/19 21:07 07/07/19 23:41 Glucose (Fingerstick) 193 mg/dL (70-99) 107 mg/dL (70-99) 121 mg/dL (70-99) 135 mg/dL (70-99) Test 07/08/19 05:45 07/08/19 06:15 07/08/19 08:30 Glucose (Fingerstick) 122 mg/dL (70-99) White Blood Count 14.7 x10^3/uL (4.0-11.0) Red Blood Count 2.75 x10^6/uL (4.30-5.70) Hemoglobin 7.9 g/dL (13.0-17.5) Hematocrit 24.6 % (39.0-53.0) Mean Corpuscular Volume 90 fL (79-100) Mean Corpuscular Hemoglobin 29 pg (25-35) Mean Corpuscular Hemoglobin Concent 32 g/dL (31-37) Red Cell Distribution Width 15.0 % (11.5-14.5) Platelet Count 452 x10^3/uL (140-400) Neutrophils (%) (Auto) 83 % (31-73) Lymphocytes (%) (Auto) 7 % (24-48) Monocytes (%) (Auto) 9 % (0-9) Eosinophils (%) (Auto) 1 % (0-3) Basophils (%) (Auto) 0 % (0-3) Neutrophils # (Auto) 12.2 x10^3/uL (1.8-7.7) Lymphocytes # (Auto) 1.1 x10^3/uL (1.0-4.8) Monocytes # (Auto) 1.3 x10^3/uL (0.0-1.1) Eosinophils # (Auto) 0.1 x10^3/uL (0.0-0.7) Basophils # (Auto) 0.0 x10^3/uL (0.0-0.2) Sodium Level 149 mmol/L (136-145) Potassium Level 3.9 mmol/L (3.5-5.1) Chloride Level 114 mmol/L (98-107) Carbon Dioxide Level 28 mmol/L (21-32) Anion Gap 7 (6-14) Blood Urea Nitrogen 34 mg/dL (8-26) Creatinine 0.8 mg/dL (0.7-1.3) Estimated GFR (Cockcroft-Gault) 124.3 BUN/Creatinine Ratio 43 (6-20) Glucose Level 127 mg/dL (70-99) Calcium Level 8.0 mg/dL (8.5-10.1) Total Bilirubin 3.9 mg/dL (0.2-1.0) Aspartate Amino Transf (AST/SGOT) 63 U/L (15-37) Alanine Aminotransferase (ALT/SGPT) 77 U/L (16-63) Alkaline Phosphatase 266 U/L (46-116) Total Protein 6.5 g/dL (6.4-8.2) Albumin 1.0 g/dL (3.4-5.0) Albumin/Globulin Ratio 0.2 (1.0-1.7) Triglycerides Level 164 mg/dL (0-150) O2 Saturation 97 % (92-99) Arterial Blood pH 7.42 (7.35-7.45) Arterial Blood pCO2 at Patient Temp 41 mmHg (35-46) Arterial Blood pO2 at Patient Temp 100 mmHg (75-108) Arterial Blood HCO3 26 mmol/L (21-28) Arterial Blood Base Excess 1 mmol/L (-3-3) FiO2 40 Problem List Problems Medical Problems: (1) Acute pancreatitis Status: Acute (2) Nausea & vomiting Status: Acute Assessment/Plan continue current support will review with MAXIMILIANO Kimble APRN Jul 08, 2019 09:03
--- NOTE | 2019-07-08 09:19 | PDOC ---
PULMONARY PROGRESS NOTES Subjective Patient sedated on assist control ventilation T-max 102.7 Vitals Vital Signs Date Time Temp Pulse Resp B/P (MAP) Pulse Ox O2 Delivery O2 Flow Rate FiO2 07/08/19 09:00 99.0 80 20 111/72 (85) 100 Ventilator 99.0 Comments ros unable to obtain sedated on vent HEENT: Other (nc at perrl nose clear, neck, trach site ok, no lad, no thyromegaly) Lungs: Crackles Cardiovascular: S1, S2 Abdomen: Other (/distended/firm ) Extremities: No Edema Skin: Warm Labs Laboratory Tests Test 07/06/19 12:23 07/06/19 17:47 07/07/19 01:01 07/07/19 06:04 Glucose (Fingerstick) 195 mg/dL (70-99) 156 mg/dL (70-99) 212 mg/dL (70-99) 194 mg/dL (70-99) Test 07/07/19 06:10 07/07/19 08:30 07/07/19 12:12 07/07/19 18:08 White Blood Count 13.6 x10^3/uL (4.0-11.0) Red Blood Count 2.84 x10^6/uL (4.30-5.70) Hemoglobin 8.3 g/dL (13.0-17.5) Hematocrit 25.5 % (39.0-53.0) Mean Corpuscular Volume 90 fL (79-100) Mean Corpuscular Hemoglobin 29 pg (25-35) Mean Corpuscular Hemoglobin Concent 32 g/dL (31-37) Red Cell Distribution Width 14.7 % (11.5-14.5) Platelet Count 515 x10^3/uL (140-400) Neutrophils (%) (Auto) 82 % (31-73) Lymphocytes (%) (Auto) 9 % (24-48) Monocytes (%) (Auto) 8 % (0-9) Eosinophils (%) (Auto) 1 % (0-3) Basophils (%) (Auto) 1 % (0-3) Neutrophils # (Auto) 11.2 x10^3/uL (1.8-7.7) Lymphocytes # (Auto) 1.2 x10^3/uL (1.0-4.8) Monocytes # (Auto) 1.1 x10^3/uL (0.0-1.1) Eosinophils # (Auto) 0.1 x10^3/uL (0.0-0.7) Basophils # (Auto) 0.1 x10^3/uL (0.0-0.2) Sodium Level 146 mmol/L (136-145) Potassium Level 4.3 mmol/L (3.5-5.1) Chloride Level 111 mmol/L (98-107) Carbon Dioxide Level 28 mmol/L (21-32) Anion Gap 7 (6-14) Blood Urea Nitrogen 39 mg/dL (8-26) Creatinine 0.9 mg/dL (0.7-1.3) Estimated GFR (Cockcroft-Gault) 108.5 Glucose Level 213 mg/dL (70-99) Calcium Level 8.3 mg/dL (8.5-10.1) Phosphorus Level 3.3 mg/dL (2.6-4.7) Magnesium Level 1.8 mg/dL (1.8-2.4) O2 Saturation 96 % (92-99) Arterial Blood pH 7.42 (7.35-7.45) Arterial Blood pCO2 at Patient Temp 42 mmHg (35-46) Arterial Blood pO2 at Patient Temp 92 mmHg (75-108) Arterial Blood HCO3 27 mmol/L (21-28) Arterial Blood Base Excess 2 mmol/L (-3-3) FiO2 40 Glucose (Fingerstick) 193 mg/dL (70-99) 107 mg/dL (70-99) Test 07/07/19 21:07 07/07/19 23:41 07/08/19 05:45 07/08/19 06:15 Glucose (Fingerstick) 121 mg/dL (70-99) 135 mg/dL (70-99) 122 mg/dL (70-99) White Blood Count 14.7 x10^3/uL (4.0-11.0) Red Blood Count 2.75 x10^6/uL (4.30-5.70) Hemoglobin 7.9 g/dL (13.0-17.5) Hematocrit 24.6 % (39.0-53.0) Mean Corpuscular Volume 90 fL (79-100) Mean Corpuscular Hemoglobin 29 pg (25-35) Mean Corpuscular Hemoglobin Concent 32 g/dL (31-37) Red Cell Distribution Width 15.0 % (11.5-14.5) Platelet Count 452 x10^3/uL (140-400) Neutrophils (%) (Auto) 83 % (31-73) Lymphocytes (%) (Auto) 7 % (24-48) Monocytes (%) (Auto) 9 % (0-9) Eosinophils (%) (Auto) 1 % (0-3) Basophils (%) (Auto) 0 % (0-3) Neutrophils # (Auto) 12.2 x10^3/uL (1.8-7.7) Lymphocytes # (Auto) 1.1 x10^3/uL (1.0-4.8) Monocytes # (Auto) 1.3 x10^3/uL (0.0-1.1) Eosinophils # (Auto) 0.1 x10^3/uL (0.0-0.7) Basophils # (Auto) 0.0 x10^3/uL (0.0-0.2) Sodium Level 149 mmol/L (136-145) Potassium Level 3.9 mmol/L (3.5-5.1) Chloride Level 114 mmol/L (98-107) Carbon Dioxide Level 28 mmol/L (21-32) Anion Gap 7 (6-14) Blood Urea Nitrogen 34 mg/dL (8-26) Creatinine 0.8 mg/dL (0.7-1.3) Estimated GFR (Cockcroft-Gault) 124.3 BUN/Creatinine Ratio 43 (6-20) Glucose Level 127 mg/dL (70-99) Calcium Level 8.0 mg/dL (8.5-10.1) Total Bilirubin 3.9 mg/dL (0.2-1.0) Aspartate Amino Transf (AST/SGOT) 63 U/L (15-37) Alanine Aminotransferase (ALT/SGPT) 77 U/L (16-63) Alkaline Phosphatase 266 U/L (46-116) Total Protein 6.5 g/dL (6.4-8.2) Albumin 1.0 g/dL (3.4-5.0) Albumin/Globulin Ratio 0.2 (1.0-1.7) Triglycerides Level 164 mg/dL (0-150) Test 07/08/19 08:30 O2 Saturation 97 % (92-99) Arterial Blood pH 7.42 (7.35-7.45) Arterial Blood pCO2 at Patient Temp 41 mmHg (35-46) Arterial Blood pO2 at Patient Temp 100 mmHg (75-108) Arterial Blood HCO3 26 mmol/L (21-28) Arterial Blood Base Excess 1 mmol/L (-3-3) FiO2 40 Laboratory Tests Test 07/07/19 12:12 07/07/19 18:08 07/07/19 21:07 07/07/19 23:41 Glucose (Fingerstick) 193 mg/dL (70-99) 107 mg/dL (70-99) 121 mg/dL (70-99) 135 mg/dL (70-99) Test 07/08/19 05:45 07/08/19 06:15 07/08/19 08:30 Glucose (Fingerstick) 122 mg/dL (70-99) White Blood Count 14.7 x10^3/uL (4.0-11.0) Red Blood Count 2.75 x10^6/uL (4.30-5.70) Hemoglobin 7.9 g/dL (13.0-17.5) Hematocrit 24.6 % (39.0-53.0) Mean Corpuscular Volume 90 fL (79-100) Mean Corpuscular Hemoglobin 29 pg (25-35) Mean Corpuscular Hemoglobin Concent 32 g/dL (31-37) Red Cell Distribution Width 15.0 % (11.5-14.5) Platelet Count 452 x10^3/uL (140-400) Neutrophils (%) (Auto) 83 % (31-73) Lymphocytes (%) (Auto) 7 % (24-48) Monocytes (%) (Auto) 9 % (0-9) Eosinophils (%) (Auto) 1 % (0-3) Basophils (%) (Auto) 0 % (0-3) Neutrophils # (Auto) 12.2 x10^3/uL (1.8-7.7) Lymphocytes # (Auto) 1.1 x10^3/uL (1.0-4.8) Monocytes # (Auto) 1.3 x10^3/uL (0.0-1.1) Eosinophils # (Auto) 0.1 x10^3/uL (0.0-0.7) Basophils # (Auto) 0.0 x10^3/uL (0.0-0.2) Sodium Level 149 mmol/L (136-145) Potassium Level 3.9 mmol/L (3.5-5.1) Chloride Level 114 mmol/L (98-107) Carbon Dioxide Level 28 mmol/L (21-32) Anion Gap 7 (6-14) Blood Urea Nitrogen 34 mg/dL (8-26) Creatinine 0.8 mg/dL (0.7-1.3) Estimated GFR (Cockcroft-Gault) 124.3 BUN/Creatinine Ratio 43 (6-20) Glucose Level 127 mg/dL (70-99) Calcium Level 8.0 mg/dL (8.5-10.1) Total Bilirubin 3.9 mg/dL (0.2-1.0) Aspartate Amino Transf (AST/SGOT) 63 U/L (15-37) Alanine Aminotransferase (ALT/SGPT) 77 U/L (16-63) Alkaline Phosphatase 266 U/L (46-116) Total Protein 6.5 g/dL (6.4-8.2) Albumin 1.0 g/dL (3.4-5.0) Albumin/Globulin Ratio 0.2 (1.0-1.7) Triglycerides Level 164 mg/dL (0-150) O2 Saturation 97 % (92-99) Arterial Blood pH 7.42 (7.35-7.45) Arterial Blood pCO2 at Patient Temp 41 mmHg (35-46) Arterial Blood pO2 at Patient Temp 100 mmHg (75-108) Arterial Blood HCO3 26 mmol/L (21-28) Arterial Blood Base Excess 1 mmol/L (-3-3) FiO2 40 Medications Active Scripts Medications Dose Route/Sig Max Daily Dose Days Date Category Comments ct of chest and abd 1. Redemonstrated sequela of necrotic pancreatitis. As before there is extensive mesenteric edema but the volume of free abdominopelvic fluid has decreased. Edematous enlargement of the pancreas has slightly decreased. A fluid collection along the undersurface of the stomach has decreased in size, as detailed above. A loculated appearing fluid collection within the mid abdomen anterior to the IVC and aorta (image 55 series 4) measures similar to the prior. Ill-defined area of hypoattenuation involving the mid pancreatic body is slightly more conspicuous from the prior (image 37 series 4). It is uncertain if this represents evolving parenchymal necrosis or a developing fluid collection as assessment is limited without intravenous contrast. No air and fluid containing collection seen to suggest an abscess but note is made that the sterility of the aforementioned fluid collections is indeterminate by the imaging appearance alone. 2. Extensive reactive inflammatory changes of the abdominopelvic organs. No findings of bowel obstruction. 3. A gastrostomy tube has been placed in the interim. The tube tip is not within the stomach and is seen at the distal end of the surgical tract just deep to the ventral body wall musculature - sagittal images 35 and 36 series 9. 4. Three abdominal drains. No discrete fluid collection surrounding the tips of these drains. Cholecystostomy tube, ET tube, enteric tube, Lobato and right PICC are appropriately positioned. 5. Partial collapse of the left more so than right lower lobes. Moderate-sized left pleural effusion with overlying atelectasis. No infiltrate typical of an organizing pneumonia identified. Impression . IMPRESSION: 1. Acute hypoxemic respiratory failure, multifactorial. 2. Acute gallstone pancreatitis./ Necrosis. s/p Exploratory laparotomy, pancreatic necrosectomy, cholecystostomy tube placement, Gastrostomy placement with jejunal extension, tracheostomy placement (specifically 8 shiley cuffed) 06/21 3. Acute kidney failure. improving 4. Metabolic toxic encephalopathy. 5. Hyperkalemia.corrected 6. Metabolic / respiratory acidosis 7. Hypocalcemia. 8. POSSIBLE ABD COMPARTMENT SYNDROME , s/p Exp lap 9. HEP B S POSITIVE 10. Hypernatremia, resolved 11. LLL small effusion, monitor 12. FEVER PER ID 13. Occlusive thrombus within the cephalic vein no DVT on ultrasound right 14. see infectious disease note below, case discussed yesterday with Dr. Mcpherson regarding possible thoracentesis Yeast in sputum from 07/03 likely represents colonization - was on antifungal when collected CBC/cmp in am Repeat Blood cults - pending 07/05 Await Pulm F/u re CT ? if fluid can be drawn off left side based on CT D/c'd Meropenem and started Cefepime/Flagyl 07/05 Discontinued micafungin - try to taper some meds (06/19 - 07/06) Cont daptomycin (07/02); restarted Zyvox (07/03) ( better lung penetration) Pancultures (07/03) neg so far Maintain aspiration precaution. Gen surgery following D/w nursing Critically ill 07/06 Procedure: 1. Left internal jugular central line placement. 07/07/2019 2. Conversion of a gastrostomy tube to gastrojejunostomy tube 07/07/2019 Plan . Continue current antibiotics per ID Continue assist control ventilation We will discuss case with interventional radiology for possible thoracentesis Follow surgery input Patient critically ill not ready for spontaneous breathing trials Case discussed with RN Total critical care time of 30 minutes, reviewing data, labs, chest x-ray, and discussing it with DESTINI Godwin MD Jul 08, 2019 09:19
[2019-07-08] MEDS ORDERED: MINERAL OIL/PETROLATUM,WHITE OPHTH OINT 3.5GM TUBE. OU PRN (10:30)
--- NOTE | 2019-07-08 10:49 | NUR ---
SS following up with discharge planning. [facility] insurance declined pt for LTAC. AOR form completed and faxed to [facility], ; fax [phone], with updates for expedited appeal. SS will continue to follow for discharge planning.
--- NOTE | 2019-07-08 11:05 | NUR ---
SS following up with discharge planning. Case management was notified from [facility], ; fax [phone], that pt has authorization now to go to LTAC. Bed available at [facility]. SS discussed with Dr. Quiñonez and Dr. Quiñonez reviewed with Dr. Dawson. Pt has fever today. Surgery not ready to sign off. Case management and [facility] notified.
--- NOTE | 2019-07-08 12:43 | PDOC ---
[facility] [facility] PROGRESS NOTE Chief Complaint Chief Complaint Severe pancreatitis with the following surgery: Exploratory laparotomy, pancreatic necrosectomy, cholecystostomy tube placement, Gastrostomy placement with jejunal extension, tracheostomy placement (specifically 8 shiley cuffed) Acute hypoxemic respiratory failure, multifactorial. Status post tracheostomy 5 drains Acute gallstone pancreatitis./ Necrosis Acute kidney failure. improving Metabolic toxic encephalopathy. Hyperkalemia.corrected Metabolic / respiratory acidosis Hypocalcemia. Hepatitis B Hypernatremia LLL small effusion, monitor History of Present Illness History of Present Illness [id number] Patient seen and examined in the ICU Discussed with general surgeon and he examined the patient with me Patient's is present in his good support for him Currently still intubated and on the vent He is on assist control with 40% oxygen Remains very critically ill Mr Mata is a 49 yo M admitted with severe epigastric pain beginning in the morning of admission. Ultimately diagnosed with gallstone pancreatitis. Hemodialysis catheter placed for renal failure. Arterial blood gas revealed a pH of 7.30, PaCO2 of 31, PaO2 of 75, bicarb was 15. Consulted ID, GI, General surgery, nephrology, pulmonology 06/21: Ex-lap with pancreatic necrosectomy, cholecystectomy, gastrostomy tube lpacement, tracheostomy placement. 06/22 - 06/26: Has 5 abdominal drains plus a Lobato and an NG to suction, intubated, sedated, paralyzed 06/28- 07/02: remain on micafungin, TPN. Trached on vent, sedated, 40% FiO2 07/03: His dialysis catheter and central line were removed. Ventilated via trach and sedated 07/04: Sedated on precedex. ABG reviewed, stable. Vitals stable, drains stable, still requiring ventilation on trach. Hb 7.6. TAG 1170 changed from propofol to versed for sedation 07/06 reposition G-tube. Overnight sedated. Still febrile. More comfortable on versed for sedation. Hb 7, 1u PRBC ordered. plan: Trend CBC Vitals/I&O Vitals/I&O: Vital Signs Date Time Temp Pulse Resp B/P (MAP) Pulse Ox O2 Delivery O2 Flow Rate FiO2 07/08/19 11:43 99 Ventilator 07/08/19 11:00 100.0 86 20 103/63 (76) 100.0 I & O 07/07/19 07/07/19 07/08/19 15:00 23:00 07:00 Intake Total 550 ml 2817 ml 800 ml Output Total 1565 ml 2085 ml 2140 ml Balance -1015 ml 732 ml -1340 ml Physical Exam Physical Exam: GENERAL: Sedated, trached/vent HEENT: Pupils equal reactive NECK: Trach/vent LUNGS: Diminished aeration bases HEART: S1, S2, regular, no murmurs. ABDOMEN: Distended, fairly tight today, bowel sounds quiet, drains x5, wound vac in place : Lobato in place 2 plus edema EXTREMITIES: 1+ - 2 edema, no cyanosis. SCDs bilaterally SKIN: Warm, dry. 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 Left IJ - clean.Previous RT PICC line clean stie (07/01) - clean General: Other (sedated ) Heart: Regular rate, Normal S1, Normal S2, No murmurs, Gallops Lungs: Crackles Abdomen: Soft, Other (drains in place, distended ) Extremities: No clubbing, No cyanosis, No edema, Normal pulses, No tenderness/swelling Skin: No significant lesion Labs Labs: Laboratory Tests Test 07/07/19 18:08 07/07/19 21:07 07/07/19 23:41 07/08/19 05:45 Glucose (Fingerstick) 107 mg/dL (70-99) 121 mg/dL (70-99) 135 mg/dL (70-99) 122 mg/dL (70-99) Test 07/08/19 06:15 07/08/19 08:30 White Blood Count 14.7 x10^3/uL (4.0-11.0) Red Blood Count 2.75 x10^6/uL (4.30-5.70) Hemoglobin 7.9 g/dL (13.0-17.5) Hematocrit 24.6 % (39.0-53.0) Mean Corpuscular Volume 90 fL (79-100) Mean Corpuscular Hemoglobin 29 pg (25-35) Mean Corpuscular Hemoglobin Concent 32 g/dL (31-37) Red Cell Distribution Width 15.0 % (11.5-14.5) Platelet Count 452 x10^3/uL (140-400) Neutrophils (%) (Auto) 83 % (31-73) Lymphocytes (%) (Auto) 7 % (24-48) Monocytes (%) (Auto) 9 % (0-9) Eosinophils (%) (Auto) 1 % (0-3) Basophils (%) (Auto) 0 % (0-3) Neutrophils # (Auto) 12.2 x10^3/uL (1.8-7.7) Lymphocytes # (Auto) 1.1 x10^3/uL (1.0-4.8) Monocytes # (Auto) 1.3 x10^3/uL (0.0-1.1) Eosinophils # (Auto) 0.1 x10^3/uL (0.0-0.7) Basophils # (Auto) 0.0 x10^3/uL (0.0-0.2) Sodium Level 149 mmol/L (136-145) Potassium Level 3.9 mmol/L (3.5-5.1) Chloride Level 114 mmol/L (98-107) Carbon Dioxide Level 28 mmol/L (21-32) Anion Gap 7 (6-14) Blood Urea Nitrogen 34 mg/dL (8-26) Creatinine 0.8 mg/dL (0.7-1.3) Estimated GFR (Cockcroft-Gault) 124.3 BUN/Creatinine Ratio 43 (6-20) Glucose Level 127 mg/dL (70-99) Calcium Level 8.0 mg/dL (8.5-10.1) Total Bilirubin 3.9 mg/dL (0.2-1.0) Aspartate Amino Transf (AST/SGOT) 63 U/L (15-37) Alanine Aminotransferase (ALT/SGPT) 77 U/L (16-63) Alkaline Phosphatase 266 U/L (46-116) Total Protein 6.5 g/dL (6.4-8.2) Albumin 1.0 g/dL (3.4-5.0) Albumin/Globulin Ratio 0.2 (1.0-1.7) Triglycerides Level 164 mg/dL (0-150) O2 Saturation 97 % (92-99) Arterial Blood pH 7.42 (7.35-7.45) Arterial Blood pCO2 at Patient Temp 41 mmHg (35-46) Arterial Blood pO2 at Patient Temp 100 mmHg (75-108) Arterial Blood HCO3 26 mmol/L (21-28) Arterial Blood Base Excess 1 mmol/L (-3-3) FiO2 40 Review of Systems Review of Systems: Unable to obtain Assessment and Plan Assessmemt and Plan Problems Medical Problems: (1) Acute pancreatitis Status: Acute (2) Nausea & vomiting Status: Acute Severe pancreatitis with the following surgery: Exploratory laparotomy, pancreatic necrosectomy, cholecystostomy tube placement, Gastrostomy placement with jejunal extension, tracheostomy placement (specifically 8 shiley cuffed) Acute hypoxemic respiratory failure, multifactorial. Status post tracheostomy 5 drains Acute gallstone pancreatitis./ Necrosis Acute kidney failure. improving Metabolic toxic encephalopathy. Hyperkalemia.corrected Metabolic / respiratory acidosis Hypocalcemia. Hepatitis B Hypernatremia LLL small effusion, monitor Plan: Continue ICU monitoring Continue to monitor intraabdominal pressures IV micafungin GEN IV insulin DVT prophylaxis We have a GJ tube and hope to begin feedings into the jejunum eventually For now continue TPN I discussed with case management he has been accepted at the LTAC Dr. Smyth would like to wait till next week for the LTAC and I agree Appreciate subspecialist input Vent weaning if possible IV antibiotics IV paralytics and IV sedatives Trend labs Wound care We are managing 5 abdominal drains He remains critically ill Prognosis extremely guarded Total time 38 minutes Comment Review of Relevant I have reviewed the following items alexandra (where applicable) has been applied. Medications: Current Medications Medications (Trade) Dose Ordered Sig/Jesse Route PRN Reason Start Time Stop Time Status Last Admin Dose Admin Potassium Acetate 10 meq/Potassium Phosphate 10 mmol/ Magnesium Sulfate 10 meq/Calcium Gluconate 10 meq/ Multivitamins 10 ml/Chromium/ Copper/Manganese/ Seleni/Zn 0.5 ml/ Total Parenteral Nutrition/Amino Acids/Dextrose 1,920 ml @ 80 mls/hr TPN CONT IV 07/07/19 22:00 07/08/19 21:59 07/07/19 21:50 Lidocaine HCl (Buffered Lidocaine 1%) 4 ml 1X ONCE IJ 07/07/19 14:00 07/07/19 14:01 DC 07/07/19 12:50 Iohexol (Omnipaque 240 Mg/ml) 10 ml 1X ONCE IJ 07/07/19 14:00 07/07/19 14:01 DC 07/07/19 12:50 Hemodynamically unstable?: No Is patient in severe pain?: No Is NPO status required?: Yes JUSTIN WORKMAN III DO Jul 08, 2019 12:43
--- NOTE | 2019-07-08 12:52 | PDOC ---
G I PROGRESS NOTE Subjective Sedated on ventilator. Physical Exam Lungs clear anteriorly. RRR Abdomen about the same; firm. G-tube to DD. Review of Relevant I have reviewed the following items alexandra (where applicable) has been applied. Labs Laboratory Tests Test 07/06/19 17:47 07/07/19 01:01 07/07/19 06:04 07/07/19 06:10 Glucose (Fingerstick) 156 mg/dL (70-99) 212 mg/dL (70-99) 194 mg/dL (70-99) White Blood Count 13.6 x10^3/uL (4.0-11.0) Red Blood Count 2.84 x10^6/uL (4.30-5.70) Hemoglobin 8.3 g/dL (13.0-17.5) Hematocrit 25.5 % (39.0-53.0) Mean Corpuscular Volume 90 fL (79-100) Mean Corpuscular Hemoglobin 29 pg (25-35) Mean Corpuscular Hemoglobin Concent 32 g/dL (31-37) Red Cell Distribution Width 14.7 % (11.5-14.5) Platelet Count 515 x10^3/uL (140-400) Neutrophils (%) (Auto) 82 % (31-73) Lymphocytes (%) (Auto) 9 % (24-48) Monocytes (%) (Auto) 8 % (0-9) Eosinophils (%) (Auto) 1 % (0-3) Basophils (%) (Auto) 1 % (0-3) Neutrophils # (Auto) 11.2 x10^3/uL (1.8-7.7) Lymphocytes # (Auto) 1.2 x10^3/uL (1.0-4.8) Monocytes # (Auto) 1.1 x10^3/uL (0.0-1.1) Eosinophils # (Auto) 0.1 x10^3/uL (0.0-0.7) Basophils # (Auto) 0.1 x10^3/uL (0.0-0.2) Sodium Level 146 mmol/L (136-145) Potassium Level 4.3 mmol/L (3.5-5.1) Chloride Level 111 mmol/L (98-107) Carbon Dioxide Level 28 mmol/L (21-32) Anion Gap 7 (6-14) Blood Urea Nitrogen 39 mg/dL (8-26) Creatinine 0.9 mg/dL (0.7-1.3) Estimated GFR (Cockcroft-Gault) 108.5 Glucose Level 213 mg/dL (70-99) Calcium Level 8.3 mg/dL (8.5-10.1) Phosphorus Level 3.3 mg/dL (2.6-4.7) Magnesium Level 1.8 mg/dL (1.8-2.4) Test 07/07/19 08:30 07/07/19 12:12 07/07/19 18:08 07/07/19 21:07 O2 Saturation 96 % (92-99) Arterial Blood pH 7.42 (7.35-7.45) Arterial Blood pCO2 at Patient Temp 42 mmHg (35-46) Arterial Blood pO2 at Patient Temp 92 mmHg (75-108) Arterial Blood HCO3 27 mmol/L (21-28) Arterial Blood Base Excess 2 mmol/L (-3-3) FiO2 40 Glucose (Fingerstick) 193 mg/dL (70-99) 107 mg/dL (70-99) 121 mg/dL (70-99) Test 07/07/19 23:41 07/08/19 05:45 07/08/19 06:15 07/08/19 08:30 Glucose (Fingerstick) 135 mg/dL (70-99) 122 mg/dL (70-99) White Blood Count 14.7 x10^3/uL (4.0-11.0) Red Blood Count 2.75 x10^6/uL (4.30-5.70) Hemoglobin 7.9 g/dL (13.0-17.5) Hematocrit 24.6 % (39.0-53.0) Mean Corpuscular Volume 90 fL (79-100) Mean Corpuscular Hemoglobin 29 pg (25-35) Mean Corpuscular Hemoglobin Concent 32 g/dL (31-37) Red Cell Distribution Width 15.0 % (11.5-14.5) Platelet Count 452 x10^3/uL (140-400) Neutrophils (%) (Auto) 83 % (31-73) Lymphocytes (%) (Auto) 7 % (24-48) Monocytes (%) (Auto) 9 % (0-9) Eosinophils (%) (Auto) 1 % (0-3) Basophils (%) (Auto) 0 % (0-3) Neutrophils # (Auto) 12.2 x10^3/uL (1.8-7.7) Lymphocytes # (Auto) 1.1 x10^3/uL (1.0-4.8) Monocytes # (Auto) 1.3 x10^3/uL (0.0-1.1) Eosinophils # (Auto) 0.1 x10^3/uL (0.0-0.7) Basophils # (Auto) 0.0 x10^3/uL (0.0-0.2) Sodium Level 149 mmol/L (136-145) Potassium Level 3.9 mmol/L (3.5-5.1) Chloride Level 114 mmol/L (98-107) Carbon Dioxide Level 28 mmol/L (21-32) Anion Gap 7 (6-14) Blood Urea Nitrogen 34 mg/dL (8-26) Creatinine 0.8 mg/dL (0.7-1.3) Estimated GFR (Cockcroft-Gault) 124.3 BUN/Creatinine Ratio 43 (6-20) Glucose Level 127 mg/dL (70-99) Calcium Level 8.0 mg/dL (8.5-10.1) Total Bilirubin 3.9 mg/dL (0.2-1.0) Aspartate Amino Transf (AST/SGOT) 63 U/L (15-37) Alanine Aminotransferase (ALT/SGPT) 77 U/L (16-63) Alkaline Phosphatase 266 U/L (46-116) Total Protein 6.5 g/dL (6.4-8.2) Albumin 1.0 g/dL (3.4-5.0) Albumin/Globulin Ratio 0.2 (1.0-1.7) Triglycerides Level 164 mg/dL (0-150) O2 Saturation 97 % (92-99) Arterial Blood pH 7.42 (7.35-7.45) Arterial Blood pCO2 at Patient Temp 41 mmHg (35-46) Arterial Blood pO2 at Patient Temp 100 mmHg (75-108) Arterial Blood HCO3 26 mmol/L (21-28) Arterial Blood Base Excess 1 mmol/L (-3-3) FiO2 40 Test 07/08/19 12:42 Glucose (Fingerstick) 142 mg/dL (70-99) Laboratory Tests Test 07/07/19 18:08 07/07/19 21:07 07/07/19 23:41 07/08/19 05:45 Glucose (Fingerstick) 107 mg/dL (70-99) 121 mg/dL (70-99) 135 mg/dL (70-99) 122 mg/dL (70-99) Test 07/08/19 06:15 07/08/19 08:30 07/08/19 12:42 White Blood Count 14.7 x10^3/uL (4.0-11.0) Red Blood Count 2.75 x10^6/uL (4.30-5.70) Hemoglobin 7.9 g/dL (13.0-17.5) Hematocrit 24.6 % (39.0-53.0) Mean Corpuscular Volume 90 fL (79-100) Mean Corpuscular Hemoglobin 29 pg (25-35) Mean Corpuscular Hemoglobin Concent 32 g/dL (31-37) Red Cell Distribution Width 15.0 % (11.5-14.5) Platelet Count 452 x10^3/uL (140-400) Neutrophils (%) (Auto) 83 % (31-73) Lymphocytes (%) (Auto) 7 % (24-48) Monocytes (%) (Auto) 9 % (0-9) Eosinophils (%) (Auto) 1 % (0-3) Basophils (%) (Auto) 0 % (0-3) Neutrophils # (Auto) 12.2 x10^3/uL (1.8-7.7) Lymphocytes # (Auto) 1.1 x10^3/uL (1.0-4.8) Monocytes # (Auto) 1.3 x10^3/uL (0.0-1.1) Eosinophils # (Auto) 0.1 x10^3/uL (0.0-0.7) Basophils # (Auto) 0.0 x10^3/uL (0.0-0.2) Sodium Level 149 mmol/L (136-145) Potassium Level 3.9 mmol/L (3.5-5.1) Chloride Level 114 mmol/L (98-107) Carbon Dioxide Level 28 mmol/L (21-32) Anion Gap 7 (6-14) Blood Urea Nitrogen 34 mg/dL (8-26) Creatinine 0.8 mg/dL (0.7-1.3) Estimated GFR (Cockcroft-Gault) 124.3 BUN/Creatinine Ratio 43 (6-20) Glucose Level 127 mg/dL (70-99) Calcium Level 8.0 mg/dL (8.5-10.1) Total Bilirubin 3.9 mg/dL (0.2-1.0) Aspartate Amino Transf (AST/SGOT) 63 U/L (15-37) Alanine Aminotransferase (ALT/SGPT) 77 U/L (16-63) Alkaline Phosphatase 266 U/L (46-116) Total Protein 6.5 g/dL (6.4-8.2) Albumin 1.0 g/dL (3.4-5.0) Albumin/Globulin Ratio 0.2 (1.0-1.7) Triglycerides Level 164 mg/dL (0-150) O2 Saturation 97 % (92-99) Arterial Blood pH 7.42 (7.35-7.45) Arterial Blood pCO2 at Patient Temp 41 mmHg (35-46) Arterial Blood pO2 at Patient Temp 100 mmHg (75-108) Arterial Blood HCO3 26 mmol/L (21-28) Arterial Blood Base Excess 1 mmol/L (-3-3) FiO2 40 Glucose (Fingerstick) 142 mg/dL (70-99) Microbiology 07/06/19 Blood Culture - Preliminary, Resulted NO GROWTH AFTER 1 DAY 07/04/19 - Final, Complete 07/04/19 - Final, Complete 07/04/19 - Final, Complete 07/04/19 Gram Stain Evaluation - Final, Complete 07/04/19 Sputum Culture - Final, Complete 07/04/19 Sputum Result 1 - Final, Complete 07/03/19 Aerobic Culture - Final, Complete 07/03/19 Aerobic Culture Result 1 (CARINE) - Final, Complete 07/03/19 Gram Stain - Final, Complete 07/03/19 Gram Stain Result 1 (CARINE) - Final, Complete 07/03/19 Gram Stain Result 2 (CARINE) - Final, Complete 06/22/19 AFB Specimen Processing Tissue - Final, Resulted 06/22/19 Acid Fast Bacilli Culture, Resulted Pending 06/22/19 Gram Stain - Final, Resulted 06/22/19 Fungal Culture - Preliminary, Resulted 06/22/19 Fungal Culture Result 1 - Preliminary, Resulted Vitals/I & O Vital Sign - Last 24 Hours 07/07/19 07/07/19 07/07/19 07/07/19 13:35 14:00 15:00 15:22 Temp 102.7 102.7 101.7 102.7 102.7 101.7 Pulse 123 105 94 Resp 33 31 25 25 B/P (MAP) 151/75 (100) 141/70 (93) 104/66 (79) Pulse Ox 100 100 94 95 O2 Delivery Ventilator Ventilator Ventilator 07/07/19 07/07/19 07/07/19 07/07/19 15:32 16:00 16:00 16:00 Temp 101.1 101.1 Pulse 94 Resp 21 B/P (MAP) 91/63 (72) Pulse Ox 94 100 97 O2 Delivery Ventilator Ventilator Mechanical Ventilator Ventilator 07/07/19 07/07/19 07/07/19 07/07/19 17:00 17:53 18:00 19:00 Temp 101.1 100.5 102.2 101.1 100.5 102.2 Pulse 94 109 98 Resp 25 B/P (MAP) 97/61 (73) 115/72 (86) 118/76 (90) Pulse Ox 97 94 100 100 O2 Delivery Ventilator Ventilator Ventilator Ventilator 07/07/19 07/07/19 07/07/19 07/07/19 20:00 20:00 20:35 21:00 Temp 101.8 100.8 101.8 100.8 Pulse 90 86 Resp 25 B/P (MAP) 95/61 (72) 97/60 (72) Pulse Ox 100 97 100 O2 Delivery Mechanical Ventilator Ventilator Ventilator Ventilator 07/07/19 07/07/19 07/07/19 07/08/19 22:00 23:00 23:40 00:00 Temp 99.7 99.7 99.7 99.7 Pulse 88 97 Resp 25 B/P (MAP) 111/75 (87) 154/97 (116) Pulse Ox 100 100 94 O2 Delivery Ventilator Ventilator Ventilator Mechanical Ventilator 07/08/19 07/08/19 07/08/19 07/08/19 00:10 00:51 01:26 03:07 Temp 100.0 100.2 100.4 100.0 100.2 100.4 Pulse 90 100 103 Resp 25 25 25 B/P (MAP) 114/71 (85) 133/86 (102) 128/84 (99) Pulse Ox 100 99 100 100 O2 Delivery Ventilator Ventilator Ventilator Ventilator 07/08/19 07/08/19 07/08/19 07/08/19 03:45 03:56 04:00 05:08 Temp 100.4 100.0 100.4 100.0 Pulse 89 78 Resp B/P (MAP) 121/74 (90) 107/69 (82) Pulse Ox 100 100 100 O2 Delivery Ventilator Mechanical Ventilator Ventilator Ventilator 07/08/19 07/08/19 07/08/19 07/08/19 05:55 06:05 07:00 07:54 Temp 99.3 99.1 99.3 99.1 Pulse 100 80 Resp B/P (MAP) 118/78 (91) 110/69 (83) Pulse Ox 100 100 100 O2 Delivery Ventilator Ventilator Ventilator Mechanical Ventilator 07/08/19 07/08/19 07/08/19 07/08/19 08:00 08:17 09:00 09:56 Temp 99.0 99.0 Pulse 78 80 Resp B/P (MAP) 96/61 (73) 111/72 (85) Pulse Ox 100 100 100 100 O2 Delivery Ventilator Ventilator Ventilator Ventilator 07/08/19 07/08/19 07/08/19 10:00 11:00 11:43 Temp 100.0 100.0 100.0 100.0 Pulse 95 86 Resp B/P (MAP) 133/78 (96) 103/63 (76) Pulse Ox 99 99 99 O2 Delivery Ventilator Ventilator Ventilator Intake and Output 07/07/19 07/07/19 07/08/19 15:00 23:00 07:00 Intake Total 550 ml 2817 ml 800 ml Output Total 1565 ml 2085 ml 2140 ml Balance -1015 ml 732 ml -1340 ml Problem List Problems Medical Problems: (1) Acute pancreatitis Status: Acute (2) Nausea & vomiting Status: Acute Assessment Remains critical, but stable. Plan of Care Note Continue support. Fever (though core temp of 100 not that bad) may be from pancreatitis. Hemodynamically unstable?: No Is patient in severe pain?: No Is NPO status required?: Yes MARIA L CRUZ MD Jul 08, 2019 12:52
[2019-07-08] MEDS: TPN PER PHARMACY MC PRN ×3 (13:10→13:24)
--- NOTE | 2019-07-08 13:35 | NUR ---
Pharmacy TPN Dosing Note S: CHRISTOPHER NEWSOME is a 49 year old M Currently receiving Central Continuous TPN started 06/19/19 B:Pertinent PMH: PANCREATITIS Height: 5 feet, 9 inches Weight: 108.197956 kg Current diet: NPO LABS: Sodium: 149 Potassium: 3.9 Chloride: 114 Calcium: 8.0 Corrected Calcium: 10.40 Magnesium: 1.8 CO2: 28 SCr: 0.8 Glucose: 127 Albumin: 1.0 AST: 63 ALT: 77 TPN FORMULA: TPN TYPE: Central Continuous AMINO ACIDS: 145 gm DEXTROSE: 285 gm LIPIDS: 20 gm SODIUM CHLORIDE: mEq SODIUM ACETATE: mEq SODIUM PHOSPHATE: - mmol POTASSIUM CHLORIDE: mEq POTASSIUM ACETATE: 10 mEq POTASSIUM PHOSPHATE: 10 mmol MAGNESIUM: 10 mEq CALCIUM: 10 mEq INSULIN: - units MULTIPLE VITAMIN: 10 ml TRACE ELEMENTS: 0.5 ml(s) TPN PLAN: increase dextrose to 285g, add 20g lipids. R: Continue TPN Will monitor electrolytes, glucose, and tolerance to TPN. BAL GARLAND, [facility] [place], 07/08/19 [id number]
--- NOTE | 2019-07-08 14:43 | NUR ---
Wound Care Pt seen for wound care follow up re: application of an incisional vac to midline abdominal incision. Abdominal dressings and drain sponges removed, all areas cleaned with ChloraPrep scrubs and allowed to dry. Midline abdominal incision approximated, with small amount of serous drainage along incision line. Vac drape "window paned" around incision, contact layer applied over incision line, then silver vac foam applied over contact layer, drape applied, vac showing strong seal at -125 mmHg continuous suction. Split gauze sponges applied around all drains and lightly taped, thin layers of gauze placed below drain bumpers, as skin is getting some pressure along edges. No other wounds noted on full skin inspection. Pt turned to right side with wedge, heels floated. Will continue to follow for vac management on weekly basis and PRN.
--- NOTE | 2019-07-08 17:00 | NUR ---
pts was here this am and was able to talk to several doctors. pt stable. wound vac redressed and photographed by wound care team. pt tolerated well with a bolus of fentanyl.
[2019-07-08] MEDS: ACETAMINOPHEN 650 MG SUPP.RECT. PR PRN (18:43)
[2019-07-08] MEDS ORDERED: AMINO ACID IV SCH ×9 (22:00)
[2019-07-08] MEDS ORDERED: TOTAL PARENTERAL NUTRITION IV SCH ×9 (22:00)
[2019-07-08] MEDS ORDERED: [UNRECOGNIZED DRUG - OTHER] IV SCH ×9 (22:00)
[2019-07-08] MEDS ORDERED: DEXTROSE 70% IV SCH ×9 (22:00)
[2019-07-08] MEDS: fentaNYL HIGH DOSE PCA 55 ML IV PRN (22:46)
[2019-07-09] VITALS (23 sets, daily range): BP systolic 93–131; BP diastolic 51–79
[2019-07-09] MEDS: MIDAZOLAM HCL 50 MG in IV NORMAL SALINE 50ML 50 ML IV PRN ×3 (03:15→18:39)
[2019-07-09] MEDS: DEXMEDETOMIDINE 400 MCG in IV NORMAL SALINE 100ML 96 ML IV PRN ×8 (03:15→23:09)
[2019-07-09] MEDS: ENOXAPARIN 40 MG/0.4 ML SYRINGE. SQ SCH (05:58)
[2019-07-09] MEDS: PANTOPRAZOLE IV PUSH 40 MG VIAL. IVP SCH ×2 (05:59→17:20)
[2019-07-09] MEDS: CEFEPIME HCL IV Push 2 GM VIAL. IVP SCH ×3 (05:59→21:39)
[2019-07-09] MEDS: INSULIN LISPRO 300 UNITS/3 ML VIAL. SQ SCH ×3 (05:59→17:28)
[2019-07-09 06:17] LABS: BASO # 0.1 x10^3/uL (0.0-0.2); BASO % 0 % (0-3); EOS # 0.1 x10^3/uL (0.0-0.7); EOS % 1 % (0-3); HEMATOCRIT 23.8 % (39.0-53.0); HEMOGLOBIN 7.6 g/dL (13.0-17.5); LYMPH # 1.2 x10^3/uL (1.0-4.8); LYMPH % 8 % (24-48); MEAN CORPUSCULAR HEMOGLOBIN 29 pg (25-35); MEAN CORPUSCULAR HGB CONC 32 g/dL (31-37); MEAN CORPUSCULAR VOLUME 90 fL (79-100); MONO # 1.1 x10^3/uL (0.0-1.1); MONO % 8 % (0-9); NEUT % 83 % (31-73); PLATELET COUNT 430 x10^3/uL (140-400); RED BLOOD COUNT 2.64 x10^6/uL (4.30-5.70); RED CELL DISTRIBUTION WIDTH 15.4 % (11.5-14.5); WHITE BLOOD COUNT 14.5 x10^3/uL (4.0-11.0)
[2019-07-09 06:31] LABS: ALBUMIN/GLOBULIN RATIO 0.2 (1.0-1.7); CREATININE 0.9 mg/dL (0.7-1.3); GFR 108.5; MAGNESIUM 1.9 mg/dL (1.8-2.4); PHOSPHORUS 2.8 mg/dL (2.6-4.7); POTASSIUM 3.7 mmol/L (3.5-5.1); TOTAL BILIRUBIN 3.8 mg/dL (0.2-1.0)
--- NOTE | 2019-07-09 07:52 | PDOC ---
Infectious Disease Note Subjective Subjective Appears comfortable Sedated Trach/vent, FiO2 40% 5 PEEP TPN ROS ROS unable to obtain Vital Sign Vital Signs Vital Signs Date Time Temp Pulse Resp B/P (MAP) Pulse Ox O2 Delivery O2 Flow Rate FiO2 07/09/19 06:00 99.3 80 20 110/61 (77) 98 Ventilator 99.3 Physical Exam PHYSICAL EXAM GENERAL: Sedated, trached/vent HEENT: Pupils equal reactive NECK: Trach/ no JVD LUNGS: Diminished aeration bases HEART: S1, S2, regular, no murmurs. ABDOMEN: Distended, fairly tight still, bowel sounds quiet, drains x5, wound vac in place : [place] in place 2 plus edema EXTREMITIES: 1+ - 2 edema, no cyanosis. SCDs bilaterally SKIN: Warm, dry. 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 Left IJ 07/06- clean.Previous RT PICC line clean stie (07/01) - clean Labs Lab Laboratory Tests Test 07/08/19 08:30 07/08/19 12:42 07/08/19 17:36 07/08/19 23:49 O2 Saturation 97 % (92-99) Arterial Blood pH 7.42 (7.35-7.45) Arterial Blood pCO2 at Patient Temp 41 mmHg (35-46) Arterial Blood pO2 at Patient Temp 100 mmHg (75-108) Arterial Blood HCO3 26 mmol/L (21-28) Arterial Blood Base Excess 1 mmol/L (-3-3) FiO2 40 Glucose (Fingerstick) 142 mg/dL (70-99) 126 mg/dL (70-99) 127 mg/dL (70-99) Test 07/09/19 05:45 07/09/19 05:54 White Blood Count 14.5 x10^3/uL (4.0-11.0) Red Blood Count 2.64 x10^6/uL (4.30-5.70) Hemoglobin 7.6 g/dL (13.0-17.5) Hematocrit 23.8 % (39.0-53.0) Mean Corpuscular Volume 90 fL (79-100) Mean Corpuscular Hemoglobin 29 pg (25-35) Mean Corpuscular Hemoglobin Concent 32 g/dL (31-37) Red Cell Distribution Width 15.4 % (11.5-14.5) Platelet Count 430 x10^3/uL (140-400) Neutrophils (%) (Auto) 83 % (31-73) Lymphocytes (%) (Auto) 8 % (24-48) Monocytes (%) (Auto) 8 % (0-9) Eosinophils (%) (Auto) 1 % (0-3) Basophils (%) (Auto) 0 % (0-3) Neutrophils # (Auto) 12.0 x10^3/uL (1.8-7.7) Lymphocytes # (Auto) 1.2 x10^3/uL (1.0-4.8) Monocytes # (Auto) 1.1 x10^3/uL (0.0-1.1) Eosinophils # (Auto) 0.1 x10^3/uL (0.0-0.7) Basophils # (Auto) 0.1 x10^3/uL (0.0-0.2) Sodium Level 147 mmol/L (136-145) Potassium Level 3.7 mmol/L (3.5-5.1) Chloride Level 113 mmol/L (98-107) Carbon Dioxide Level 28 mmol/L (21-32) Anion Gap 6 (6-14) Blood Urea Nitrogen 30 mg/dL (8-26) Creatinine 0.9 mg/dL (0.7-1.3) Estimated GFR (Cockcroft-Gault) 108.5 BUN/Creatinine Ratio 33 (6-20) Glucose Level 121 mg/dL (70-99) Calcium Level 8.0 mg/dL (8.5-10.1) Phosphorus Level 2.8 mg/dL (2.6-4.7) Magnesium Level 1.9 mg/dL (1.8-2.4) Total Bilirubin 3.8 mg/dL (0.2-1.0) Aspartate Amino Transf (AST/SGOT) 45 U/L (15-37) Alanine Aminotransferase (ALT/SGPT) 58 U/L (16-63) Alkaline Phosphatase 219 U/L (46-116) Total Protein 6.0 g/dL (6.4-8.2) Albumin 1.0 g/dL (3.4-5.0) Albumin/Globulin Ratio 0.2 (1.0-1.7) Glucose (Fingerstick) 124 mg/dL (70-99) Micro CT 3/2 Lower chest: Moderate left and small right pleural effusions with adjacent atelectasis. Abdomen and pelvis: Severe findings of pancreatitis. Diffuse hypoattenuation of the pancreas, concerning for necrosis. Evaluation degraded without IV contrast. Fluid collection along the inferior aspect of the stomach measures 9.6 x 4.0 cm. Loculated fluid collection along the anterior aspect of the pancreas measures 3.0 x 2.6 cm. Severe inflammatory changes extending inferiorly. Small perihepatic free fluid. Bilateral perinephric inflammatory changes. Cholelithiasis. The liver, spleen, adrenal glands and kidneys are unremarkable noncontrast appearance. No hydronephrosis. Regions of colonic wall thickening, likely reactive. Normal appendix. Enteric tube within the stomach. No evidence of small bowel obstruction. Duodenal proximal jejunal wall thickening, likely reactive. Multiple enlarged mesenteric lymph nodes.. Catheter within the urinary bladder. Mild body wall edema. Impression: 1. Increased severe pancreatitis with extensive inflammatory changes and hypoattenuation of the pancreas, concerning for necrosis although evaluation degraded without IV contrast. 2. New fluid collection along the inferior aspect of the stomach and anterior aspect of the pancreas. 3. Increased multifocal colonic and small bowel wall thickening, likely reactive. 4. New small perihepatic free fluid. 5. Cholelithiasis. 6. Mesenteric lymphadenopathy, likely reactive. 7. Moderate left and small right pleural effusion with adjacent atelectasis. Microbiology 06/14/19 Blood Culture - Preliminary, Resulted NO GROWTH AFTER 1 DAY Objective Assessment Fever - mild elevation? pancreatitis/abd distension/pleural effusion/occlusive clot in cephalic - blood cults 07/05 - neg - Lines changed 07/06 PICC to LIJ S/p Jejunostomy placement 07/06 per nursing - report no available Leukocytosis - stable - ? reactive given procedure S/p PRBCs 07/05 Gallbladder stone pancreatitis s/p expl lap, pancreatic necrosectomy, cholecystostomy tube placement, G-tube placement with jejunal extension, 06/21 -gastrostomy tube repositioned by IR 07/03 per nursing - d/w Dr. Mcdonough Intra-abd fluid collections Sepsis from GI - cult neg Acute Resp failure - s/p trach 06/21, vent dependent Lactic acidosis. Acute kidney injury previously requiring dialysis - now with improved UOP, HDC now out Metabolic acidosis. Hypocalcemia Right arm swelling, + occlusive thrombosis within the cephalic vein, no DVT on US Yeast in sputum from 07/03 likely represents colonization - was on antifungal when collected Plan Plan of Care Lipase this am CBC/cmp in am Repeat Blood cults - pending 07/05 Await Pulm F/u re CT ? if fluid can be drawn off left side based on CT - IR to evaluate D/c'd Meropenem and started Cefepime/Flagyl 07/05 Discontinued micafungin - try to taper some meds (06/19 - 07/06) - If Fever persists or decompensates will add back Cont daptomycin (07/02); restarted Zyvox (07/03) ( better lung penetration) Pancultures (07/03) neg so far Maintain aspiration precaution. Gen surgery following D/w nursing Critically ill D/w 07/07 LE CROWLEY MD Jul 09, 2019 07:52
[2019-07-09] MEDS: ALBUTEROL SULFATE 2.5 MG/3 ML NEBU. NEB SCH ×4 (08:22→19:59)
[2019-07-09] MEDS: FUROSEMIDE 40 MG/4 ML VIAL. IVP SCH (08:42)
[2019-07-09] MEDS: INSULIN GLARGINE SYRINGE. SQ SCH ×2 (08:44→22:56)
[2019-07-09 08:45] LABS: BASE EXCESS ABG 0 mmol/L (-3-3); HCO3 ABG 25 mmol/L (21-28); PCO2 ABG 41 mmHg (35-46); PO2 ABG 100 mmHg (75-108); SAT O2 ABG 97 % (92-99)
[2019-07-09] MEDS: DAPTOmycin (GENERIC) IVPB 520 MG in IV NORMAL SALINE 50ML 50 ML IV SCH (08:45)
[2019-07-09 08:49] LABS: FIO2 ABG 40
--- NOTE | 2019-07-09 08:54 | PDOC ---
PULMONARY PROGRESS NOTES Subjective Patient sedated on assist control ventilation T-max 102.7 Vitals Vital Signs Date Time Temp Pulse Resp B/P (MAP) Pulse Ox O2 Delivery O2 Flow Rate FiO2 07/09/19 08:10 100 Ventilator 07/09/19 06:00 99.3 80 20 110/61 (77) 99.3 Comments ros unable to obtain sedated on vent HEENT: Other (nc at perrl nose clear, neck, trach site ok, no lad, no thyromegaly) Lungs: Crackles Cardiovascular: S1, S2 Abdomen: Other (/distended/firm ) Extremities: No Edema Skin: Warm Labs Laboratory Tests Test 07/07/19 12:12 07/07/19 18:08 07/07/19 21:07 07/07/19 23:41 Glucose (Fingerstick) 193 mg/dL (70-99) 107 mg/dL (70-99) 121 mg/dL (70-99) 135 mg/dL (70-99) Test 07/08/19 05:45 07/08/19 06:15 07/08/19 08:30 07/08/19 12:42 Glucose (Fingerstick) 122 mg/dL (70-99) 142 mg/dL (70-99) White Blood Count 14.7 x10^3/uL (4.0-11.0) Red Blood Count 2.75 x10^6/uL (4.30-5.70) Hemoglobin 7.9 g/dL (13.0-17.5) Hematocrit 24.6 % (39.0-53.0) Mean Corpuscular Volume 90 fL (79-100) Mean Corpuscular Hemoglobin 29 pg (25-35) Mean Corpuscular Hemoglobin Concent 32 g/dL (31-37) Red Cell Distribution Width 15.0 % (11.5-14.5) Platelet Count 452 x10^3/uL (140-400) Neutrophils (%) (Auto) 83 % (31-73) Lymphocytes (%) (Auto) 7 % (24-48) Monocytes (%) (Auto) 9 % (0-9) Eosinophils (%) (Auto) 1 % (0-3) Basophils (%) (Auto) 0 % (0-3) Neutrophils # (Auto) 12.2 x10^3/uL (1.8-7.7) Lymphocytes # (Auto) 1.1 x10^3/uL (1.0-4.8) Monocytes # (Auto) 1.3 x10^3/uL (0.0-1.1) Eosinophils # (Auto) 0.1 x10^3/uL (0.0-0.7) Basophils # (Auto) 0.0 x10^3/uL (0.0-0.2) Sodium Level 149 mmol/L (136-145) Potassium Level 3.9 mmol/L (3.5-5.1) Chloride Level 114 mmol/L (98-107) Carbon Dioxide Level 28 mmol/L (21-32) Anion Gap 7 (6-14) Blood Urea Nitrogen 34 mg/dL (8-26) Creatinine 0.8 mg/dL (0.7-1.3) Estimated GFR (Cockcroft-Gault) 124.3 BUN/Creatinine Ratio 43 (6-20) Glucose Level 127 mg/dL (70-99) Calcium Level 8.0 mg/dL (8.5-10.1) Total Bilirubin 3.9 mg/dL (0.2-1.0) Aspartate Amino Transf (AST/SGOT) 63 U/L (15-37) Alanine Aminotransferase (ALT/SGPT) 77 U/L (16-63) Alkaline Phosphatase 266 U/L (46-116) Total Protein 6.5 g/dL (6.4-8.2) Albumin 1.0 g/dL (3.4-5.0) Albumin/Globulin Ratio 0.2 (1.0-1.7) Triglycerides Level 164 mg/dL (0-150) O2 Saturation 97 % (92-99) Arterial Blood pH 7.42 (7.35-7.45) Arterial Blood pCO2 at Patient Temp 41 mmHg (35-46) Arterial Blood pO2 at Patient Temp 100 mmHg (75-108) Arterial Blood HCO3 26 mmol/L (21-28) Arterial Blood Base Excess 1 mmol/L (-3-3) FiO2 40 Test 07/08/19 17:36 07/08/19 23:49 07/09/19 05:45 07/09/19 05:54 Glucose (Fingerstick) 126 mg/dL (70-99) 127 mg/dL (70-99) 124 mg/dL (70-99) White Blood Count 14.5 x10^3/uL (4.0-11.0) Red Blood Count 2.64 x10^6/uL (4.30-5.70) Hemoglobin 7.6 g/dL (13.0-17.5) Hematocrit 23.8 % (39.0-53.0) Mean Corpuscular Volume 90 fL (79-100) Mean Corpuscular Hemoglobin 29 pg (25-35) Mean Corpuscular Hemoglobin Concent 32 g/dL (31-37) Red Cell Distribution Width 15.4 % (11.5-14.5) Platelet Count 430 x10^3/uL (140-400) Neutrophils (%) (Auto) 83 % (31-73) Lymphocytes (%) (Auto) 8 % (24-48) Monocytes (%) (Auto) 8 % (0-9) Eosinophils (%) (Auto) 1 % (0-3) Basophils (%) (Auto) 0 % (0-3) Neutrophils # (Auto) 12.0 x10^3/uL (1.8-7.7) Lymphocytes # (Auto) 1.2 x10^3/uL (1.0-4.8) Monocytes # (Auto) 1.1 x10^3/uL (0.0-1.1) Eosinophils # (Auto) 0.1 x10^3/uL (0.0-0.7) Basophils # (Auto) 0.1 x10^3/uL (0.0-0.2) Sodium Level 147 mmol/L (136-145) Potassium Level 3.7 mmol/L (3.5-5.1) Chloride Level 113 mmol/L (98-107) Carbon Dioxide Level 28 mmol/L (21-32) Anion Gap 6 (6-14) Blood Urea Nitrogen 30 mg/dL (8-26) Creatinine 0.9 mg/dL (0.7-1.3) Estimated GFR (Cockcroft-Gault) 108.5 BUN/Creatinine Ratio 33 (6-20) Glucose Level 121 mg/dL (70-99) Calcium Level 8.0 mg/dL (8.5-10.1) Phosphorus Level 2.8 mg/dL (2.6-4.7) Magnesium Level 1.9 mg/dL (1.8-2.4) Total Bilirubin 3.8 mg/dL (0.2-1.0) Aspartate Amino Transf (AST/SGOT) 45 U/L (15-37) Alanine Aminotransferase (ALT/SGPT) 58 U/L (16-63) Alkaline Phosphatase 219 U/L (46-116) Total Protein 6.0 g/dL (6.4-8.2) Albumin 1.0 g/dL (3.4-5.0) Albumin/Globulin Ratio 0.2 (1.0-1.7) Test 07/09/19 08:40 O2 Saturation 97 % (92-99) Arterial Blood pH 7.40 (7.35-7.45) Arterial Blood pCO2 at Patient Temp 41 mmHg (35-46) Arterial Blood pO2 at Patient Temp 100 mmHg (75-108) Arterial Blood HCO3 25 mmol/L (21-28) Arterial Blood Base Excess 0 mmol/L (-3-3) FiO2 40 Laboratory Tests Test 07/08/19 12:42 07/08/19 17:36 07/08/19 23:49 07/09/19 05:45 Glucose (Fingerstick) 142 mg/dL (70-99) 126 mg/dL (70-99) 127 mg/dL (70-99) White Blood Count 14.5 x10^3/uL (4.0-11.0) Red Blood Count 2.64 x10^6/uL (4.30-5.70) Hemoglobin 7.6 g/dL (13.0-17.5) Hematocrit 23.8 % (39.0-53.0) Mean Corpuscular Volume 90 fL (79-100) Mean Corpuscular Hemoglobin 29 pg (25-35) Mean Corpuscular Hemoglobin Concent 32 g/dL (31-37) Red Cell Distribution Width 15.4 % (11.5-14.5) Platelet Count 430 x10^3/uL (140-400) Neutrophils (%) (Auto) 83 % (31-73) Lymphocytes (%) (Auto) 8 % (24-48) Monocytes (%) (Auto) 8 % (0-9) Eosinophils (%) (Auto) 1 % (0-3) Basophils (%) (Auto) 0 % (0-3) Neutrophils # (Auto) 12.0 x10^3/uL (1.8-7.7) Lymphocytes # (Auto) 1.2 x10^3/uL (1.0-4.8) Monocytes # (Auto) 1.1 x10^3/uL (0.0-1.1) Eosinophils # (Auto) 0.1 x10^3/uL (0.0-0.7) Basophils # (Auto) 0.1 x10^3/uL (0.0-0.2) Sodium Level 147 mmol/L (136-145) Potassium Level 3.7 mmol/L (3.5-5.1) Chloride Level 113 mmol/L (98-107) Carbon Dioxide Level 28 mmol/L (21-32) Anion Gap 6 (6-14) Blood Urea Nitrogen 30 mg/dL (8-26) Creatinine 0.9 mg/dL (0.7-1.3) Estimated GFR (Cockcroft-Gault) 108.5 BUN/Creatinine Ratio 33 (6-20) Glucose Level 121 mg/dL (70-99) Calcium Level 8.0 mg/dL (8.5-10.1) Phosphorus Level 2.8 mg/dL (2.6-4.7) Magnesium Level 1.9 mg/dL (1.8-2.4) Total Bilirubin 3.8 mg/dL (0.2-1.0) Aspartate Amino Transf (AST/SGOT) 45 U/L (15-37) Alanine Aminotransferase (ALT/SGPT) 58 U/L (16-63) Alkaline Phosphatase 219 U/L (46-116) Total Protein 6.0 g/dL (6.4-8.2) Albumin 1.0 g/dL (3.4-5.0) Albumin/Globulin Ratio 0.2 (1.0-1.7) Test 07/09/19 05:54 07/09/19 08:40 Glucose (Fingerstick) 124 mg/dL (70-99) O2 Saturation 97 % (92-99) Arterial Blood pH 7.40 (7.35-7.45) Arterial Blood pCO2 at Patient Temp 41 mmHg (35-46) Arterial Blood pO2 at Patient Temp 100 mmHg (75-108) Arterial Blood HCO3 25 mmol/L (21-28) Arterial Blood Base Excess 0 mmol/L (-3-3) FiO2 40 Medications Active Scripts Medications Dose Route/Sig Max Daily Dose Days Date Category Comments ct of chest and abd 1. Redemonstrated sequela of necrotic pancreatitis. As before there is extensive mesenteric edema but the volume of free abdominopelvic fluid has decreased. Edematous enlargement of the pancreas has slightly decreased. A fluid collection along the undersurface of the stomach has decreased in size, as detailed above. A loculated appearing fluid collection within the mid abdomen anterior to the IVC and aorta (image 55 series 4) measures similar to the prior. Ill-defined area of hypoattenuation involving the mid pancreatic body is slightly more conspicuous from the prior (image 37 series 4). It is uncertain if this represents evolving parenchymal necrosis or a developing fluid collection as assessment is limited without intravenous contrast. No air and fluid containing collection seen to suggest an abscess but note is made that the sterility of the aforementioned fluid collections is indeterminate by the imaging appearance alone. 2. Extensive reactive inflammatory changes of the abdominopelvic organs. No findings of bowel obstruction. 3. A gastrostomy tube has been placed in the interim. The tube tip is not within the stomach and is seen at the distal end of the surgical tract just deep to the ventral body wall musculature - sagittal images 35 and 36 series 9. 4. Three abdominal drains. No discrete fluid collection surrounding the tips of these drains. Cholecystostomy tube, ET tube, enteric tube, Lobato and right PICC are appropriately positioned. 5. Partial collapse of the left more so than right lower lobes. Moderate-sized left pleural effusion with overlying atelectasis. No infiltrate typical of an organizing pneumonia identified. Impression . IMPRESSION: 1. Acute hypoxemic respiratory failure, multifactorial. 2. Acute gallstone pancreatitis./ Necrosis. s/p Exploratory laparotomy, pancreatic necrosectomy, cholecystostomy tube placement, Gastrostomy placement with jejunal extension, tracheostomy placement (specifically 8 shiley cuffed) 3/8 3. Acute kidney failure. improving 4. Metabolic toxic encephalopathy. 5. Hyperkalemia.corrected 6. Metabolic / respiratory acidosis 7. Hypocalcemia. 8. POSSIBLE ABD COMPARTMENT SYNDROME , s/p Exp lap 9. HEP B S POSITIVE 10. Hypernatremia, resolved 11. LLL small effusion, monitor 12. FEVER PER ID 13. Occlusive thrombus within the cephalic vein no DVT on ultrasound right 14. see infectious disease note below, case discussed yesterday with Dr. Mcpherson regarding possible thoracentesis Yeast in sputum from 07/03 likely represents colonization - was on antifungal when collected CBC/cmp in am Repeat Blood cults - pending 07/05 Await Pulm F/u re CT ? if fluid can be drawn off left side based on CT D/c'd Meropenem and started Cefepime/Flagyl 07/05 Discontinued micafungin - try to taper some meds (06/19 - 07/06) Cont daptomycin (07/02); restarted Zyvox (07/03) ( better lung penetration) Pancultures (07/03) neg so far Maintain aspiration precaution. Gen surgery following D/w nursing Critically ill 07/06 Procedure: 1. Left internal jugular central line placement. 07/07/2019 2. Conversion of a gastrostomy tube to gastrojejunostomy tube 07/07/2019 Plan . Continue current antibiotics per ID Continue assist control ventilation We will discuss case with interventional radiology for possible thoracentesis Follow surgery input Patient critically ill not ready for spontaneous breathing trials Case discussed with RN Total critical care time of 30 minutes, reviewing data, labs, chest x-ray, and discussing it with DESTINI Godwin MD Jul 09, 2019 08:54
--- NOTE | 2019-07-09 08:57 | PDOC ---
[facility] PROGRESS NOTE Chief Complaint Chief Complaint Severe pancreatitis with the following surgery: Exploratory laparotomy, pancreatic necrosectomy, cholecystostomy tube placement, Gastrostomy placement with jejunal extension, tracheostomy placement (specifically 8 shiley cuffed) Acute hypoxemic respiratory failure, multifactorial. Status post tracheostomy 5 drains Acute gallstone pancreatitis./ Necrosis Acute kidney failure. improving Metabolic toxic encephalopathy. Hyperkalemia.corrected Metabolic / respiratory acidosis Hypocalcemia. Hepatitis B Hypernatremia LLL small effusion, monitor History of Present Illness History of Present Illness [id number] Patient seen and examined in the ICU He is still mechanically ventilated assist-control/ with 40% Chart reviewed Discussed with RN He remains very critically ill [id number] Patient seen and examined in the ICU Discussed with general surgeon and he examined the patient with me Patient's is present in his good support for him Currently still intubated and on the vent He is on assist control with 40% oxygen Remains very critically ill Mr Mata is a 49 yo M admitted with severe epigastric pain beginning in the morning of admission. Ultimately diagnosed with gallstone pancreatitis. Hemodialysis catheter placed for renal failure. Arterial blood gas revealed a pH of 7.30, PaCO2 of 31, PaO2 of 75, bicarb was 15. Consulted ID, GI, General surgery, nephrology, pulmonology 06/21: Ex-lap with pancreatic necrosectomy, cholecystectomy, gastrostomy tube lpacement, tracheostomy placement. 06/22 - 06/26: Has 5 abdominal drains plus a Lobato and an NG to suction, intubated, sedated, paralyzed 06/28- 07/02: remain on micafungin, TPN. Trached on vent, sedated, 40% FiO2 07/03: His dialysis catheter and central line were removed. Ventilated via trach and sedated 07/04: Sedated on precedex. ABG reviewed, stable. Vitals stable, drains stable, still requiring ventilation on trach. Hb 7.6. TAG 1170 changed from propofol to versed for sedation 07/06 reposition G-tube. Overnight sedated. Still febrile. More comfortable on versed for sedation. Hb 7, 1u PRBC ordered. plan: Trend CBC Vitals/I&O Vitals/I&O: Vital Signs Date Time Temp Pulse Resp B/P (MAP) Pulse Ox O2 Delivery O2 Flow Rate FiO2 07/09/19 08:10 100 Ventilator 07/09/19 06:00 99.3 80 20 110/61 (77) 99.3 I & O 07/08/19 07/08/19 07/09/19 15:00 23:00 07:00 Intake Total 350 ml 2937.84 ml 1701 ml Output Total 1570 ml 1235 ml 975 ml Balance -1220 ml 1702.84 ml 726 ml Physical Exam Physical Exam: GENERAL: Sedated, trached/vent HEENT: Pupils equal reactive NECK: Trach/ no JVD LUNGS: Diminished aeration bases HEART: S1, S2, regular, no murmurs. ABDOMEN: Distended, fairly tight still, bowel sounds quiet, drains x5, wound vac in place : Lobato in place 2 plus edema EXTREMITIES: 1+ - 2 edema, no cyanosis. SCDs bilaterally SKIN: Warm, dry. 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 Left IJ 07/06- clean.Previous RT PICC line clean stie (07/01) - clean General: Other (sedated ) Heart: Regular rate, Normal S1, Normal S2, No murmurs, Gallops Lungs: Crackles Abdomen: Soft, Other (drains in place, distended ) Extremities: No clubbing, No cyanosis, No edema, Normal pulses, No tenderness/swelling Skin: No significant lesion Labs Labs: Laboratory Tests Test 07/08/19 12:42 07/08/19 17:36 07/08/19 23:49 07/09/19 05:45 Glucose (Fingerstick) 142 mg/dL (70-99) 126 mg/dL (70-99) 127 mg/dL (70-99) White Blood Count 14.5 x10^3/uL (4.0-11.0) Red Blood Count 2.64 x10^6/uL (4.30-5.70) Hemoglobin 7.6 g/dL (13.0-17.5) Hematocrit 23.8 % (39.0-53.0) Mean Corpuscular Volume 90 fL (79-100) Mean Corpuscular Hemoglobin 29 pg (25-35) Mean Corpuscular Hemoglobin Concent 32 g/dL (31-37) Red Cell Distribution Width 15.4 % (11.5-14.5) Platelet Count 430 x10^3/uL (140-400) Neutrophils (%) (Auto) 83 % (31-73) Lymphocytes (%) (Auto) 8 % (24-48) Monocytes (%) (Auto) 8 % (0-9) Eosinophils (%) (Auto) 1 % (0-3) Basophils (%) (Auto) 0 % (0-3) Neutrophils # (Auto) 12.0 x10^3/uL (1.8-7.7) Lymphocytes # (Auto) 1.2 x10^3/uL (1.0-4.8) Monocytes # (Auto) 1.1 x10^3/uL (0.0-1.1) Eosinophils # (Auto) 0.1 x10^3/uL (0.0-0.7) Basophils # (Auto) 0.1 x10^3/uL (0.0-0.2) Sodium Level 147 mmol/L (136-145) Potassium Level 3.7 mmol/L (3.5-5.1) Chloride Level 113 mmol/L (98-107) Carbon Dioxide Level 28 mmol/L (21-32) Anion Gap 6 (6-14) Blood Urea Nitrogen 30 mg/dL (8-26) Creatinine 0.9 mg/dL (0.7-1.3) Estimated GFR (Cockcroft-Gault) 108.5 BUN/Creatinine Ratio 33 (6-20) Glucose Level 121 mg/dL (70-99) Calcium Level 8.0 mg/dL (8.5-10.1) Phosphorus Level 2.8 mg/dL (2.6-4.7) Magnesium Level 1.9 mg/dL (1.8-2.4) Total Bilirubin 3.8 mg/dL (0.2-1.0) Aspartate Amino Transf (AST/SGOT) 45 U/L (15-37) Alanine Aminotransferase (ALT/SGPT) 58 U/L (16-63) Alkaline Phosphatase 219 U/L (46-116) Total Protein 6.0 g/dL (6.4-8.2) Albumin 1.0 g/dL (3.4-5.0) Albumin/Globulin Ratio 0.2 (1.0-1.7) Test 07/09/19 05:54 07/09/19 08:40 Glucose (Fingerstick) 124 mg/dL (70-99) O2 Saturation 97 % (92-99) Arterial Blood pH 7.40 (7.35-7.45) Arterial Blood pCO2 at Patient Temp 41 mmHg (35-46) Arterial Blood pO2 at Patient Temp 100 mmHg (75-108) Arterial Blood HCO3 25 mmol/L (21-28) Arterial Blood Base Excess 0 mmol/L (-3-3) FiO2 40 Assessment and Plan Assessmemt and Plan Problems Medical Problems: (1) Acute pancreatitis Status: Acute (2) Nausea & vomiting Status: Acute Severe pancreatitis with the following surgery: Exploratory laparotomy, pancreatic necrosectomy, cholecystostomy tube placement, Gastrostomy placement with jejunal extension, tracheostomy placement (specifically 8 shiley cuffed) Acute hypoxemic respiratory failure, multifactorial. Status post tracheostomy 5 drains Acute gallstone pancreatitis./ Necrosis Acute kidney failure. improving Metabolic toxic encephalopathy. Hyperkalemia.corrected Metabolic / respiratory acidosis Hypocalcemia. Hepatitis B Hypernatremia LLL small effusion, monitor Plan: Continue ICU monitoring Continue to monitor intraabdominal pressures IV micafungin GEN IV insulin DVT prophylaxis We have a GJ tube and hope to begin feedings into the jejunum eventually For now continue TPN I discussed with case management he has been accepted at the LTAC Dr. Smyth would like to wait till next week for the LTAC and I agree Appreciate subspecialist input Vent weaning if possible IV antibiotics IV paralytics and IV sedatives Trend labs Wound care We are managing 5 abdominal drains He remains critically ill Prognosis extremely guarded Total time 31 minutes Comment Review of Relevant I have reviewed the following items alexandra (where applicable) has been applied. Medications: Current Medications Medications (Trade) Dose Ordered Sig/Jesse Route PRN Reason Start Time Stop Time Status Last Admin Dose Admin Potassium Acetate 10 meq/Potassium Phosphate 10 mmol/ Magnesium Sulfate 10 meq/Calcium Gluconate 10 meq/ Multivitamins 10 ml/Chromium/ Copper/Manganese/ Seleni/Zn 0.5 ml/ Total Parenteral Nutrition/Amino Acids/Dextrose/ Fat Emulsion Intravenous 1,635 ml @ 68.125 mls/ hr TPN CONT IV 07/08/19 22:00 07/09/19 21:59 07/08/19 21:47 Hemodynamically unstable?: No Is patient in severe pain?: No Is NPO status required?: Yes JUSTIN WORKMAN III DO Jul 09, 2019 08:57
--- NOTE | 2019-07-09 10:18 | PDOC ---
Objective: Objective: D/w nurse. Vital Signs: Vital Signs Date Time Temp Pulse Resp B/P (MAP) Pulse Ox O2 Delivery O2 Flow Rate FiO2 07/09/19 09:48 100 Ventilator 07/09/19 09:00 96 20 118/79 (92) 07/09/19 06:00 99.3 99.3 Labs: Laboratory Tests Test 07/08/19 12:42 07/08/19 17:36 07/08/19 23:49 07/09/19 05:45 Glucose (Fingerstick) 142 mg/dL 126 mg/dL 127 mg/dL White Blood Count 14.5 x10^3/uL Red Blood Count 2.64 x10^6/uL Hemoglobin 7.6 g/dL Hematocrit 23.8 % Mean Corpuscular Volume 90 fL Mean Corpuscular Hemoglobin 29 pg Mean Corpuscular Hemoglobin Concent 32 g/dL Red Cell Distribution Width 15.4 % Platelet Count 430 x10^3/uL Neutrophils (%) (Auto) 83 % Lymphocytes (%) (Auto) 8 % Monocytes (%) (Auto) 8 % Eosinophils (%) (Auto) 1 % Basophils (%) (Auto) 0 % Neutrophils # (Auto) 12.0 x10^3/uL Lymphocytes # (Auto) 1.2 x10^3/uL Monocytes # (Auto) 1.1 x10^3/uL Eosinophils # (Auto) 0.1 x10^3/uL Basophils # (Auto) 0.1 x10^3/uL Sodium Level 147 mmol/L Potassium Level 3.7 mmol/L Chloride Level 113 mmol/L Carbon Dioxide Level 28 mmol/L Anion Gap 6 Blood Urea Nitrogen 30 mg/dL Creatinine 0.9 mg/dL Estimated GFR (Cockcroft-Gault) 108.5 BUN/Creatinine Ratio 33 Glucose Level 121 mg/dL Calcium Level 8.0 mg/dL Phosphorus Level 2.8 mg/dL Magnesium Level 1.9 mg/dL Total Bilirubin 3.8 mg/dL Aspartate Amino Transf (AST/SGOT) 45 U/L Alanine Aminotransferase (ALT/SGPT) 58 U/L Alkaline Phosphatase 219 U/L Total Protein 6.0 g/dL Albumin 1.0 g/dL Albumin/Globulin Ratio 0.2 Lipase 152 U/L Test 07/09/19 05:54 07/09/19 08:40 Glucose (Fingerstick) 124 mg/dL O2 Saturation 97 % Arterial Blood pH 7.40 Arterial Blood pCO2 at Patient Temp 41 mmHg Arterial Blood pO2 at Patient Temp 100 mmHg Arterial Blood HCO3 25 mmol/L Arterial Blood Base Excess 0 mmol/L FiO2 40 BLOOD CULTURE Preliminary NO GROWTH AFTER 2 DAYS Imagin/23 Impression: 1. Ultrasound and fluoroscopic guided placement of a left internal jugular triple-lumen central venous catheter 2. Conversion of a gastrostomy tube to gastrojejunostomy tube PE: GEN: intubated LUNGS: vent, clear HEART: RRR ABD: stable firmness, drains NEURO/PSYCH: sedated A/P: S/p pancreatic necrosectomy, MOSF, fever -- Other per Dr. Coker. Hemodynamically unstable?: No Is patient in severe pain?: No Is NPO status required?: Yes PAXTON ALEXANDER Jul 09, 2019 10:18
--- NOTE | 2019-07-09 11:27 | PDOC ---
SURGICAL PROGRESS NOTE Subjective Pt intubated and sedated, large amount of UOP, d/w pt's yesterday Vital Signs Vital Signs Date Time Temp Pulse Resp B/P (MAP) Pulse Ox O2 Delivery O2 Flow Rate FiO2 07/09/19 09:48 100 Ventilator 07/09/19 09:00 96 20 118/79 (92) 07/09/19 06:00 99.3 99.3 I&O Intake and Output 07/09/19 07:00 Intake Total 4988.84 ml Output Total 3780 ml Balance 1208.84 ml IV Total 4988.84 ml Output Urine Total 3075 ml Drainage Total 705 ml PATIENT HAS A LEPE: Yes (accurate i and os) General: No acute distress Abdomen: Soft, No tenderness, Other (drains in place) Labs Laboratory Tests Test 07/07/19 12:12 07/07/19 18:08 07/07/19 21:07 07/07/19 23:41 Glucose (Fingerstick) 193 mg/dL (70-99) 107 mg/dL (70-99) 121 mg/dL (70-99) 135 mg/dL (70-99) Test 07/08/19 05:45 07/08/19 06:15 07/08/19 08:30 07/08/19 12:42 Glucose (Fingerstick) 122 mg/dL (70-99) 142 mg/dL (70-99) White Blood Count 14.7 x10^3/uL (4.0-11.0) Red Blood Count 2.75 x10^6/uL (4.30-5.70) Hemoglobin 7.9 g/dL (13.0-17.5) Hematocrit 24.6 % (39.0-53.0) Mean Corpuscular Volume 90 fL (79-100) Mean Corpuscular Hemoglobin 29 pg (25-35) Mean Corpuscular Hemoglobin Concent 32 g/dL (31-37) Red Cell Distribution Width 15.0 % (11.5-14.5) Platelet Count 452 x10^3/uL (140-400) Neutrophils (%) (Auto) 83 % (31-73) Lymphocytes (%) (Auto) 7 % (24-48) Monocytes (%) (Auto) 9 % (0-9) Eosinophils (%) (Auto) 1 % (0-3) Basophils (%) (Auto) 0 % (0-3) Neutrophils # (Auto) 12.2 x10^3/uL (1.8-7.7) Lymphocytes # (Auto) 1.1 x10^3/uL (1.0-4.8) Monocytes # (Auto) 1.3 x10^3/uL (0.0-1.1) Eosinophils # (Auto) 0.1 x10^3/uL (0.0-0.7) Basophils # (Auto) 0.0 x10^3/uL (0.0-0.2) Sodium Level 149 mmol/L (136-145) Potassium Level 3.9 mmol/L (3.5-5.1) Chloride Level 114 mmol/L (98-107) Carbon Dioxide Level 28 mmol/L (21-32) Anion Gap 7 (6-14) Blood Urea Nitrogen 34 mg/dL (8-26) Creatinine 0.8 mg/dL (0.7-1.3) Estimated GFR (Cockcroft-Gault) 124.3 BUN/Creatinine Ratio 43 (6-20) Glucose Level 127 mg/dL (70-99) Calcium Level 8.0 mg/dL (8.5-10.1) Total Bilirubin 3.9 mg/dL (0.2-1.0) Aspartate Amino Transf (AST/SGOT) 63 U/L (15-37) Alanine Aminotransferase (ALT/SGPT) 77 U/L (16-63) Alkaline Phosphatase 266 U/L (46-116) Total Protein 6.5 g/dL (6.4-8.2) Albumin 1.0 g/dL (3.4-5.0) Albumin/Globulin Ratio 0.2 (1.0-1.7) Triglycerides Level 164 mg/dL (0-150) O2 Saturation 97 % (92-99) Arterial Blood pH 7.42 (7.35-7.45) Arterial Blood pCO2 at Patient Temp 41 mmHg (35-46) Arterial Blood pO2 at Patient Temp 100 mmHg (75-108) Arterial Blood HCO3 26 mmol/L (21-28) Arterial Blood Base Excess 1 mmol/L (-3-3) FiO2 40 Test 07/08/19 17:36 07/08/19 23:49 07/09/19 05:45 07/09/19 05:54 Glucose (Fingerstick) 126 mg/dL (70-99) 127 mg/dL (70-99) 124 mg/dL (70-99) White Blood Count 14.5 x10^3/uL (4.0-11.0) Red Blood Count 2.64 x10^6/uL (4.30-5.70) Hemoglobin 7.6 g/dL (13.0-17.5) Hematocrit 23.8 % (39.0-53.0) Mean Corpuscular Volume 90 fL (79-100) Mean Corpuscular Hemoglobin 29 pg (25-35) Mean Corpuscular Hemoglobin Concent 32 g/dL (31-37) Red Cell Distribution Width 15.4 % (11.5-14.5) Platelet Count 430 x10^3/uL (140-400) Neutrophils (%) (Auto) 83 % (31-73) Lymphocytes (%) (Auto) 8 % (24-48) Monocytes (%) (Auto) 8 % (0-9) Eosinophils (%) (Auto) 1 % (0-3) Basophils (%) (Auto) 0 % (0-3) Neutrophils # (Auto) 12.0 x10^3/uL (1.8-7.7) Lymphocytes # (Auto) 1.2 x10^3/uL (1.0-4.8) Monocytes # (Auto) 1.1 x10^3/uL (0.0-1.1) Eosinophils # (Auto) 0.1 x10^3/uL (0.0-0.7) Basophils # (Auto) 0.1 x10^3/uL (0.0-0.2) Sodium Level 147 mmol/L (136-145) Potassium Level 3.7 mmol/L (3.5-5.1) Chloride Level 113 mmol/L (98-107) Carbon Dioxide Level 28 mmol/L (21-32) Anion Gap 6 (6-14) Blood Urea Nitrogen 30 mg/dL (8-26) Creatinine 0.9 mg/dL (0.7-1.3) Estimated GFR (Cockcroft-Gault) 108.5 BUN/Creatinine Ratio 33 (6-20) Glucose Level 121 mg/dL (70-99) Calcium Level 8.0 mg/dL (8.5-10.1) Phosphorus Level 2.8 mg/dL (2.6-4.7) Magnesium Level 1.9 mg/dL (1.8-2.4) Total Bilirubin 3.8 mg/dL (0.2-1.0) Aspartate Amino Transf (AST/SGOT) 45 U/L (15-37) Alanine Aminotransferase (ALT/SGPT) 58 U/L (16-63) Alkaline Phosphatase 219 U/L (46-116) Total Protein 6.0 g/dL (6.4-8.2) Albumin 1.0 g/dL (3.4-5.0) Albumin/Globulin Ratio 0.2 (1.0-1.7) Lipase 152 U/L (73-393) Test 07/09/19 08:40 O2 Saturation 97 % (92-99) Arterial Blood pH 7.40 (7.35-7.45) Arterial Blood pCO2 at Patient Temp 41 mmHg (35-46) Arterial Blood pO2 at Patient Temp 100 mmHg (75-108) Arterial Blood HCO3 25 mmol/L (21-28) Arterial Blood Base Excess 0 mmol/L (-3-3) FiO2 40 Laboratory Tests Test 07/08/19 12:42 07/08/19 17:36 07/08/19 23:49 07/09/19 05:45 Glucose (Fingerstick) 142 mg/dL (70-99) 126 mg/dL (70-99) 127 mg/dL (70-99) White Blood Count 14.5 x10^3/uL (4.0-11.0) Red Blood Count 2.64 x10^6/uL (4.30-5.70) Hemoglobin 7.6 g/dL (13.0-17.5) Hematocrit 23.8 % (39.0-53.0) Mean Corpuscular Volume 90 fL (79-100) Mean Corpuscular Hemoglobin 29 pg (25-35) Mean Corpuscular Hemoglobin Concent 32 g/dL (31-37) Red Cell Distribution Width 15.4 % (11.5-14.5) Platelet Count 430 x10^3/uL (140-400) Neutrophils (%) (Auto) 83 % (31-73) Lymphocytes (%) (Auto) 8 % (24-48) Monocytes (%) (Auto) 8 % (0-9) Eosinophils (%) (Auto) 1 % (0-3) Basophils (%) (Auto) 0 % (0-3) Neutrophils # (Auto) 12.0 x10^3/uL (1.8-7.7) Lymphocytes # (Auto) 1.2 x10^3/uL (1.0-4.8) Monocytes # (Auto) 1.1 x10^3/uL (0.0-1.1) Eosinophils # (Auto) 0.1 x10^3/uL (0.0-0.7) Basophils # (Auto) 0.1 x10^3/uL (0.0-0.2) Sodium Level 147 mmol/L (136-145) Potassium Level 3.7 mmol/L (3.5-5.1) Chloride Level 113 mmol/L (98-107) Carbon Dioxide Level 28 mmol/L (21-32) Anion Gap 6 (6-14) Blood Urea Nitrogen 30 mg/dL (8-26) Creatinine 0.9 mg/dL (0.7-1.3) Estimated GFR (Cockcroft-Gault) 108.5 BUN/Creatinine Ratio 33 (6-20) Glucose Level 121 mg/dL (70-99) Calcium Level 8.0 mg/dL (8.5-10.1) Phosphorus Level 2.8 mg/dL (2.6-4.7) Magnesium Level 1.9 mg/dL (1.8-2.4) Total Bilirubin 3.8 mg/dL (0.2-1.0) Aspartate Amino Transf (AST/SGOT) 45 U/L (15-37) Alanine Aminotransferase (ALT/SGPT) 58 U/L (16-63) Alkaline Phosphatase 219 U/L (46-116) Total Protein 6.0 g/dL (6.4-8.2) Albumin 1.0 g/dL (3.4-5.0) Albumin/Globulin Ratio 0.2 (1.0-1.7) Lipase 152 U/L (73-393) Test 07/09/19 05:54 07/09/19 08:40 Glucose (Fingerstick) 124 mg/dL (70-99) O2 Saturation 97 % (92-99) Arterial Blood pH 7.40 (7.35-7.45) Arterial Blood pCO2 at Patient Temp 41 mmHg (35-46) Arterial Blood pO2 at Patient Temp 100 mmHg (75-108) Arterial Blood HCO3 25 mmol/L (21-28) Arterial Blood Base Excess 0 mmol/L (-3-3) FiO2 40 Problem List Problems Medical Problems: (1) Acute pancreatitis Status: Acute (2) Nausea & vomiting Status: Acute Assessment/Plan s/p necrosectomy cont supportive care KARLA CALL MD Jul 09, 2019 11:27
[2019-07-09] MEDS: TPN PER PHARMACY MC PRN (11:31)
--- NOTE | 2019-07-09 11:31 | NUR ---
Pharmacy TPN Dosing Note S: CHRISTOPHER NEWSOME is a 49 year old M Currently receiving Central Continuous TPN started 06/19/19 B:Pertinent PMH: PANCREATITIS Height: 5 feet, 9 inches Weight: 107.2 kg Current diet: NPO LABS: Sodium: 147 Potassium: 3.7 Chloride: 113 Calcium: 8.0 Corrected Calcium: 10.40 Magnesium: 1.9 CO2: 28 SCr: 0.9 Glucose: 121 Albumin: 1.0 AST: 45 ALT: 58 TPN FORMULA: TPN TYPE: Central Continuous AMINO ACIDS: 145 gm DEXTROSE: 285 gm LIPIDS: 20 gm SODIUM CHLORIDE: mEq SODIUM ACETATE: mEq SODIUM PHOSPHATE: - mmol POTASSIUM CHLORIDE: mEq POTASSIUM ACETATE: 15 mEq POTASSIUM PHOSPHATE: 15 mmol MAGNESIUM: 10 mEq CALCIUM: 10 mEq INSULIN: - units MULTIPLE VITAMIN: 10 ml TRACE ELEMENTS: 0.5 ml(s) TPN PLAN: Potassium and phos both trending down, will increase KCl to 15meq and KPhos to 15mmol Labs in the am R: Continue TPN as written above. Will monitor electrolytes, glucose, and tolerance to TPN. ANETTE LARIOS [facility], 07/09/19 1136
[2019-07-09] MEDS: ACETAMINOPHEN 650 MG SUPP.RECT. PR PRN ×2 (13:32→21:39)
--- NOTE | 2019-07-09 15:07 | PDOC ---
PULMONARY PROGRESS NOTES Subjective Patient sedated on assist control ventilation still with fevers Vitals Vital Signs Date Time Temp Pulse Resp B/P (MAP) Pulse Ox O2 Delivery O2 Flow Rate FiO2 07/09/19 14:00 90 20 105/64 (78) 99 Ventilator 07/09/19 13:00 100.4 100.4 Comments ros unable to obtain sedated on vent HEENT: Other (nc at perrl nose clear, neck, trach site ok, no lad, no thyromegaly) Lungs: Other (decrease bs) Cardiovascular: S1, S2 Abdomen: Other (/distended/firm ) Extremities: No Edema Skin: Warm Labs Laboratory Tests Test 07/07/19 18:08 07/07/19 21:07 07/07/19 23:41 07/08/19 05:45 Glucose (Fingerstick) 107 mg/dL (70-99) 121 mg/dL (70-99) 135 mg/dL (70-99) 122 mg/dL (70-99) Test 07/08/19 06:15 07/08/19 08:30 07/08/19 12:42 07/08/19 17:36 White Blood Count 14.7 x10^3/uL (4.0-11.0) Red Blood Count 2.75 x10^6/uL (4.30-5.70) Hemoglobin 7.9 g/dL (13.0-17.5) Hematocrit 24.6 % (39.0-53.0) Mean Corpuscular Volume 90 fL (79-100) Mean Corpuscular Hemoglobin 29 pg (25-35) Mean Corpuscular Hemoglobin Concent 32 g/dL (31-37) Red Cell Distribution Width 15.0 % (11.5-14.5) Platelet Count 452 x10^3/uL (140-400) Neutrophils (%) (Auto) 83 % (31-73) Lymphocytes (%) (Auto) 7 % (24-48) Monocytes (%) (Auto) 9 % (0-9) Eosinophils (%) (Auto) 1 % (0-3) Basophils (%) (Auto) 0 % (0-3) Neutrophils # (Auto) 12.2 x10^3/uL (1.8-7.7) Lymphocytes # (Auto) 1.1 x10^3/uL (1.0-4.8) Monocytes # (Auto) 1.3 x10^3/uL (0.0-1.1) Eosinophils # (Auto) 0.1 x10^3/uL (0.0-0.7) Basophils # (Auto) 0.0 x10^3/uL (0.0-0.2) Sodium Level 149 mmol/L (136-145) Potassium Level 3.9 mmol/L (3.5-5.1) Chloride Level 114 mmol/L (98-107) Carbon Dioxide Level 28 mmol/L (21-32) Anion Gap 7 (6-14) Blood Urea Nitrogen 34 mg/dL (8-26) Creatinine 0.8 mg/dL (0.7-1.3) Estimated GFR (Cockcroft-Gault) 124.3 BUN/Creatinine Ratio 43 (6-20) Glucose Level 127 mg/dL (70-99) Calcium Level 8.0 mg/dL (8.5-10.1) Total Bilirubin 3.9 mg/dL (0.2-1.0) Aspartate Amino Transf (AST/SGOT) 63 U/L (15-37) Alanine Aminotransferase (ALT/SGPT) 77 U/L (16-63) Alkaline Phosphatase 266 U/L (46-116) Total Protein 6.5 g/dL (6.4-8.2) Albumin 1.0 g/dL (3.4-5.0) Albumin/Globulin Ratio 0.2 (1.0-1.7) Triglycerides Level 164 mg/dL (0-150) O2 Saturation 97 % (92-99) Arterial Blood pH 7.42 (7.35-7.45) Arterial Blood pCO2 at Patient Temp 41 mmHg (35-46) Arterial Blood pO2 at Patient Temp 100 mmHg (75-108) Arterial Blood HCO3 26 mmol/L (21-28) Arterial Blood Base Excess 1 mmol/L (-3-3) FiO2 40 Glucose (Fingerstick) 142 mg/dL (70-99) 126 mg/dL (70-99) Test 07/08/19 23:49 07/09/19 05:45 07/09/19 05:54 07/09/19 08:40 Glucose (Fingerstick) 127 mg/dL (70-99) 124 mg/dL (70-99) White Blood Count 14.5 x10^3/uL (4.0-11.0) Red Blood Count 2.64 x10^6/uL (4.30-5.70) Hemoglobin 7.6 g/dL (13.0-17.5) Hematocrit 23.8 % (39.0-53.0) Mean Corpuscular Volume 90 fL (79-100) Mean Corpuscular Hemoglobin 29 pg (25-35) Mean Corpuscular Hemoglobin Concent 32 g/dL (31-37) Red Cell Distribution Width 15.4 % (11.5-14.5) Platelet Count 430 x10^3/uL (140-400) Neutrophils (%) (Auto) 83 % (31-73) Lymphocytes (%) (Auto) 8 % (24-48) Monocytes (%) (Auto) 8 % (0-9) Eosinophils (%) (Auto) 1 % (0-3) Basophils (%) (Auto) 0 % (0-3) Neutrophils # (Auto) 12.0 x10^3/uL (1.8-7.7) Lymphocytes # (Auto) 1.2 x10^3/uL (1.0-4.8) Monocytes # (Auto) 1.1 x10^3/uL (0.0-1.1) Eosinophils # (Auto) 0.1 x10^3/uL (0.0-0.7) Basophils # (Auto) 0.1 x10^3/uL (0.0-0.2) Sodium Level 147 mmol/L (136-145) Potassium Level 3.7 mmol/L (3.5-5.1) Chloride Level 113 mmol/L (98-107) Carbon Dioxide Level 28 mmol/L (21-32) Anion Gap 6 (6-14) Blood Urea Nitrogen 30 mg/dL (8-26) Creatinine 0.9 mg/dL (0.7-1.3) Estimated GFR (Cockcroft-Gault) 108.5 BUN/Creatinine Ratio 33 (6-20) Glucose Level 121 mg/dL (70-99) Calcium Level 8.0 mg/dL (8.5-10.1) Phosphorus Level 2.8 mg/dL (2.6-4.7) Magnesium Level 1.9 mg/dL (1.8-2.4) Total Bilirubin 3.8 mg/dL (0.2-1.0) Aspartate Amino Transf (AST/SGOT) 45 U/L (15-37) Alanine Aminotransferase (ALT/SGPT) 58 U/L (16-63) Alkaline Phosphatase 219 U/L (46-116) Total Protein 6.0 g/dL (6.4-8.2) Albumin 1.0 g/dL (3.4-5.0) Albumin/Globulin Ratio 0.2 (1.0-1.7) Lipase 152 U/L (73-393) O2 Saturation 97 % (92-99) Arterial Blood pH 7.40 (7.35-7.45) Arterial Blood pCO2 at Patient Temp 41 mmHg (35-46) Arterial Blood pO2 at Patient Temp 100 mmHg (75-108) Arterial Blood HCO3 25 mmol/L (21-28) Arterial Blood Base Excess 0 mmol/L (-3-3) FiO2 40 Test 07/09/19 12:04 Glucose (Fingerstick) 148 mg/dL (70-99) Laboratory Tests Test 07/08/19 17:36 07/08/19 23:49 07/09/19 05:45 07/09/19 05:54 Glucose (Fingerstick) 126 mg/dL (70-99) 127 mg/dL (70-99) 124 mg/dL (70-99) White Blood Count 14.5 x10^3/uL (4.0-11.0) Red Blood Count 2.64 x10^6/uL (4.30-5.70) Hemoglobin 7.6 g/dL (13.0-17.5) Hematocrit 23.8 % (39.0-53.0) Mean Corpuscular Volume 90 fL (79-100) Mean Corpuscular Hemoglobin 29 pg (25-35) Mean Corpuscular Hemoglobin Concent 32 g/dL (31-37) Red Cell Distribution Width 15.4 % (11.5-14.5) Platelet Count 430 x10^3/uL (140-400) Neutrophils (%) (Auto) 83 % (31-73) Lymphocytes (%) (Auto) 8 % (24-48) Monocytes (%) (Auto) 8 % (0-9) Eosinophils (%) (Auto) 1 % (0-3) Basophils (%) (Auto) 0 % (0-3) Neutrophils # (Auto) 12.0 x10^3/uL (1.8-7.7) Lymphocytes # (Auto) 1.2 x10^3/uL (1.0-4.8) Monocytes # (Auto) 1.1 x10^3/uL (0.0-1.1) Eosinophils # (Auto) 0.1 x10^3/uL (0.0-0.7) Basophils # (Auto) 0.1 x10^3/uL (0.0-0.2) Sodium Level 147 mmol/L (136-145) Potassium Level 3.7 mmol/L (3.5-5.1) Chloride Level 113 mmol/L (98-107) Carbon Dioxide Level 28 mmol/L (21-32) Anion Gap 6 (6-14) Blood Urea Nitrogen 30 mg/dL (8-26) Creatinine 0.9 mg/dL (0.7-1.3) Estimated GFR (Cockcroft-Gault) 108.5 BUN/Creatinine Ratio 33 (6-20) Glucose Level 121 mg/dL (70-99) Calcium Level 8.0 mg/dL (8.5-10.1) Phosphorus Level 2.8 mg/dL (2.6-4.7) Magnesium Level 1.9 mg/dL (1.8-2.4) Total Bilirubin 3.8 mg/dL (0.2-1.0) Aspartate Amino Transf (AST/SGOT) 45 U/L (15-37) Alanine Aminotransferase (ALT/SGPT) 58 U/L (16-63) Alkaline Phosphatase 219 U/L (46-116) Total Protein 6.0 g/dL (6.4-8.2) Albumin 1.0 g/dL (3.4-5.0) Albumin/Globulin Ratio 0.2 (1.0-1.7) Lipase 152 U/L (73-393) Test 07/09/19 08:40 07/09/19 12:04 O2 Saturation 97 % (92-99) Arterial Blood pH 7.40 (7.35-7.45) Arterial Blood pCO2 at Patient Temp 41 mmHg (35-46) Arterial Blood pO2 at Patient Temp 100 mmHg (75-108) Arterial Blood HCO3 25 mmol/L (21-28) Arterial Blood Base Excess 0 mmol/L (-3-3) FiO2 40 Glucose (Fingerstick) 148 mg/dL (70-99) Medications Active Scripts Medications Dose Route/Sig Max Daily Dose Days Date Category Comments ct of chest and abd 1. Redemonstrated sequela of necrotic pancreatitis. As before there is extensive mesenteric edema but the volume of free abdominopelvic fluid has decreased. Edematous enlargement of the pancreas has slightly decreased. A fluid collection along the undersurface of the stomach has decreased in size, as detailed above. A loculated appearing fluid collection within the mid abdomen anterior to the IVC and aorta (image 55 series 4) measures similar to the prior. Ill-defined area of hypoattenuation involving the mid pancreatic body is slightly more conspicuous from the prior (image 37 series 4). It is uncertain if this represents evolving parenchymal necrosis or a developing fluid collection as assessment is limited without intravenous contrast. No air and fluid containing collection seen to suggest an abscess but note is made that the sterility of the aforementioned fluid collections is indeterminate by the imaging appearance alone. 2. Extensive reactive inflammatory changes of the abdominopelvic organs. No findings of bowel obstruction. 3. A gastrostomy tube has been placed in the interim. The tube tip is not within the stomach and is seen at the distal end of the surgical tract just deep to the ventral body wall musculature - sagittal images 35 and 36 series 9. 4. Three abdominal drains. No discrete fluid collection surrounding the tips of these drains. Cholecystostomy tube, ET tube, enteric tube, [place] and right PICC are appropriately positioned. 5. Partial collapse of the left more so than right lower lobes. Moderate-sized left pleural effusion with overlying atelectasis. No infiltrate typical of an organizing pneumonia identified. Impression . IMPRESSION: 1. Acute hypoxemic respiratory failure, multifactorial. 2. Acute gallstone pancreatitis./ Necrosis. s/p Exploratory laparotomy, pancreatic necrosectomy, cholecystostomy tube placement, Gastrostomy placement with jejunal extension, tracheostomy placement (specifically 8 shiley cuffed) 3/8 3. Acute kidney failure. improving 4. Metabolic toxic encephalopathy. 5. Hyperkalemia.corrected 6. Metabolic / respiratory acidosis 7. Hypocalcemia. 8. POSSIBLE ABD COMPARTMENT SYNDROME , s/p Exp lap 9. HEP B S POSITIVE 10. Hypernatremia, resolved 11. LLL small effusion, monitor 12. FEVER PER ID 13. Occlusive thrombus within the cephalic vein no DVT on ultrasound right 14. see infectious disease note below, case discussed yesterday with Dr. Mcpherson regarding possible thoracentesis Plan . Continue current antibiotics per ID Continue assist control ventilation CXR 07/04/ Left basal atelectasis/ small effusion. f/u cxr in am Follow surgery input Patient critically ill not ready for spontaneous breathing trials Case discussed with TAYA SERRANO MD Jul 09, 2019 15:07
[2019-07-09] MEDS: IV NORMAL SALINE 1000ML BAG 1,000 ML IV SCH (15:39)
[2019-07-09] MEDS ORDERED: [UNRECOGNIZED DRUG - OTHER] IV SCH ×9 (22:00)
[2019-07-09] MEDS ORDERED: TOTAL PARENTERAL NUTRITION IV SCH ×9 (22:00)
[2019-07-09] MEDS ORDERED: DEXTROSE 70% IV SCH ×9 (22:00)
[2019-07-09] MEDS ORDERED: AMINO ACID IV SCH ×9 (22:00)
[2019-07-10] VITALS (24 sets, daily range): BP systolic 86–160; BP diastolic 50–85
[2019-07-10] MEDS: MIDAZOLAM HCL 50 MG in IV NORMAL SALINE 50ML 50 ML IV PRN ×4 (01:29→20:02)
[2019-07-10] MEDS: DEXMEDETOMIDINE 400 MCG in IV NORMAL SALINE 100ML 96 ML IV PRN ×8 (02:42→22:41)
[2019-07-10] MEDS: ACETAMINOPHEN 650 MG SUPP.RECT. PR PRN ×2 (02:51→15:03)
[2019-07-10] MEDS: fentaNYL HIGH DOSE PCA 55 ML IV PRN (05:25)
[2019-07-10] MEDS: CEFEPIME HCL IV Push 2 GM VIAL. IVP SCH ×3 (05:48→21:50)
[2019-07-10] MEDS: ENOXAPARIN 40 MG/0.4 ML SYRINGE. SQ SCH (05:49)
[2019-07-10] MEDS: INSULIN LISPRO 300 UNITS/3 ML VIAL. SQ SCH ×5 (05:54→23:54)
[2019-07-10] MEDS: PANTOPRAZOLE IV PUSH 40 MG VIAL. IVP SCH ×2 (06:21→17:44)
[2019-07-10 07:22] LABS: BASO % 0 % (0-3); EOS # 0.1 x10^3/uL (0.0-0.7); EOS % 1 % (0-3); HEMATOCRIT 23.5 % (39.0-53.0); HEMOGLOBIN 7.5 g/dL (13.0-17.5); LYMPH % 7 % (24-48); MEAN CORPUSCULAR HEMOGLOBIN 29 pg (25-35); MEAN CORPUSCULAR HGB CONC 32 g/dL (31-37); MEAN CORPUSCULAR VOLUME 91 fL (79-100); MONO # 1.1 x10^3/uL (0.0-1.1); MONO % 8 % (0-9); NEUT # 11.2 x10^3/uL (1.8-7.7); NEUT % 84 % (31-73); PLATELET COUNT 411 x10^3/uL (140-400); RED BLOOD COUNT 2.59 x10^6/uL (4.30-5.70); RED CELL DISTRIBUTION WIDTH 15.4 % (11.5-14.5); WHITE BLOOD COUNT 13.4 x10^3/uL (4.0-11.0)
--- NOTE | 2019-07-10 07:24 | RAD ---
EXAM: CHEST 1 VIEW History: Respiratory failure COMPARISON: 07/05/2019 TECHNIQUE: Single portable radiograph of the chest Findings/ impression: Low lung volumes and technique accentuates heart size and pulmonary vascularity. Mild cardiomegaly. Tracheostomy is identified. Interval removal of right-sided PICC line. Interval placement of left internal jugular line in place. Moderate prominent bilateral interstitial lung markings likely congestive changes with airspace opacities identified in the left lung slightly increased since prior exam. Electronically signed by: Hima Rosenbaum MD (07/10/2019 7:22 AM) [id number]
[2019-07-10 07:53] LABS: ALBUMIN/GLOBULIN RATIO 0.2 (1.0-1.7); CALCIUM 7.9 mg/dL (8.5-10.1); CREATININE 0.9 mg/dL (0.7-1.3); GFR 108.5; POTASSIUM 3.7 mmol/L (3.5-5.1); TOTAL PROTEIN 6.1 g/dL (6.4-8.2)
[2019-07-10] MEDS: ALBUTEROL SULFATE 2.5 MG/3 ML NEBU. NEB SCH ×4 (08:01→20:56)
[2019-07-10 08:12] LABS: BASE EXCESS ABG -1 mmol/L (-3-3); HCO3 ABG 24 mmol/L (21-28); PCO2 ABG 39 mmHg (35-46); PO2 ABG 116 mmHg (75-108); SAT O2 ABG 98 % (92-99)
[2019-07-10 08:14] LABS: FIO2 ABG 40%
--- NOTE | 2019-07-10 08:49 | PDOC ---
Infectious Disease Note Subjective Subjective Appears comfortable Sedated Trach/vent, FiO2 40% 5 PEEP TPN Vital Sign Vital Signs Vital Signs Date Time Temp Pulse Resp B/P (MAP) Pulse Ox O2 Delivery O2 Flow Rate FiO2 07/10/19 08:02 100 Ventilator 07/10/19 07:00 70 20 115/79 (91) 07/10/19 05:55 3.0 07/10/19 04:00 99.5 99.5 Physical Exam PHYSICAL EXAM GENERAL: Sedated, trached/vent - appears very comfortable HEENT: Pupils equal reactive NECK: Trach/ no JVD LUNGS: Diminished aeration bases HEART: S1, S2, regular, no murmurs. ABDOMEN: Distended, fairly tight still, bowel sounds quiet, drains x5, wound vac in place : [place] in place 2 plus edema EXTREMITIES: 1+ - 2 edema, no cyanosis. SCDs bilaterally SKIN: Warm, dry. 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 Left IJ 07/06- clean.Previous RT PICC line clean stie (07/01) - clean Labs Lab Laboratory Tests Test 07/09/19 12:04 07/09/19 17:24 07/09/19 22:06 07/10/19 00:15 Glucose (Fingerstick) 148 mg/dL (70-99) 112 mg/dL (70-99) 101 mg/dL (70-99) 117 mg/dL (70-99) Test 07/10/19 05:53 07/10/19 06:20 07/10/19 08:10 Glucose (Fingerstick) 130 mg/dL (70-99) White Blood Count 13.4 x10^3/uL (4.0-11.0) Red Blood Count 2.59 x10^6/uL (4.30-5.70) Hemoglobin 7.5 g/dL (13.0-17.5) Hematocrit 23.5 % (39.0-53.0) Mean Corpuscular Volume 91 fL (79-100) Mean Corpuscular Hemoglobin 29 pg (25-35) Mean Corpuscular Hemoglobin Concent 32 g/dL (31-37) Red Cell Distribution Width 15.4 % (11.5-14.5) Platelet Count 411 x10^3/uL (140-400) Neutrophils (%) (Auto) 84 % (31-73) Lymphocytes (%) (Auto) 7 % (24-48) Monocytes (%) (Auto) 8 % (0-9) Eosinophils (%) (Auto) 1 % (0-3) Basophils (%) (Auto) 0 % (0-3) Neutrophils # (Auto) 11.2 x10^3/uL (1.8-7.7) Lymphocytes # (Auto) 1.0 x10^3/uL (1.0-4.8) Monocytes # (Auto) 1.1 x10^3/uL (0.0-1.1) Eosinophils # (Auto) 0.1 x10^3/uL (0.0-0.7) Basophils # (Auto) 0.0 x10^3/uL (0.0-0.2) Sodium Level 147 mmol/L (136-145) Potassium Level 3.7 mmol/L (3.5-5.1) Chloride Level 113 mmol/L (98-107) Carbon Dioxide Level 26 mmol/L (21-32) Anion Gap 8 (6-14) Blood Urea Nitrogen 28 mg/dL (8-26) Creatinine 0.9 mg/dL (0.7-1.3) Estimated GFR (Cockcroft-Gault) 108.5 BUN/Creatinine Ratio 31 (6-20) Glucose Level 127 mg/dL (70-99) Calcium Level 7.9 mg/dL (8.5-10.1) Total Bilirubin 4.0 mg/dL (0.2-1.0) Aspartate Amino Transf (AST/SGOT) 46 U/L (15-37) Alanine Aminotransferase (ALT/SGPT) 51 U/L (16-63) Alkaline Phosphatase 217 U/L (46-116) Total Protein 6.1 g/dL (6.4-8.2) Albumin 1.0 g/dL (3.4-5.0) Albumin/Globulin Ratio 0.2 (1.0-1.7) O2 Saturation 98 % (92-99) Arterial Blood pH 7.41 (7.35-7.45) Arterial Blood pCO2 at Patient Temp 39 mmHg (35-46) Arterial Blood pO2 at Patient Temp 116 mmHg (75-108) Arterial Blood HCO3 24 mmol/L (21-28) Arterial Blood Base Excess -1 mmol/L (-3-3) FiO2 40% Micro CT 06/15 Lower chest: Moderate left and small right pleural effusions with adjacent atelectasis. Abdomen and pelvis: Severe findings of pancreatitis. Diffuse hypoattenuation of the pancreas, concerning for necrosis. Evaluation degraded without IV contrast. Fluid collection along the inferior aspect of the stomach measures 9.6 x 4.0 cm. Loculated fluid collection along the anterior aspect of the pancreas measures 3.0 x 2.6 cm. Severe inflammatory changes extending inferiorly. Small perihepatic free fluid. Bilateral perinephric inflammatory changes. Cholelithiasis. The liver, spleen, adrenal glands and kidneys are unremarkable noncontrast appearance. No hydronephrosis. Regions of colonic wall thickening, likely reactive. Normal appendix. Enteric tube within the stomach. No evidence of small bowel obstruction. Duodenal proximal jejunal wall thickening, likely reactive. Multiple enlarged mesenteric lymph nodes.. Catheter within the urinary bladder. Mild body wall edema. Impression: 1. Increased severe pancreatitis with extensive inflammatory changes and hypoattenuation of the pancreas, concerning for necrosis although evaluation degraded without IV contrast. 2. New fluid collection along the inferior aspect of the stomach and anterior aspect of the pancreas. 3. Increased multifocal colonic and small bowel wall thickening, likely reactive. 4. New small perihepatic free fluid. 5. Cholelithiasis. 6. Mesenteric lymphadenopathy, likely reactive. 7. Moderate left and small right pleural effusion with adjacent atelectasis. Microbiology 06/14/19 Blood Culture - Preliminary, Resulted NO GROWTH AFTER 1 DAY Objective Assessment Fever - mild elevation? pancreatitis/abd distension/pleural effusion/occlusive clot in cephalic - blood cults 07/05 - neg - Lines changed 07/06 PICC to LIJ S/p Jejunostomy placement 07/06 per nursing - report no available Leukocytosis - better - ? reactive given procedure S/p PRBCs 07/05 Gallbladder stone pancreatitis s/p expl lap, pancreatic necrosectomy, cholecystostomy tube placement, G-tube placement with jejunal extension, 06/21 -gastrostomy tube repositioned by IR 07/03 per nursing - d/w Dr. Mcdonough Intra-abd fluid collections Sepsis from GI - cult neg Acute Resp failure - s/p trach 06/21, vent dependent Lactic acidosis. Acute kidney injury previously requiring dialysis - now with improved UOP, HDC now out Metabolic acidosis. Hypocalcemia Right arm swelling, + occlusive thrombosis within the cephalic vein, no DVT on US Yeast in sputum from 07/03 likely represents colonization - was on antifungal when collected Plan Plan of Care CBC/cmp in am Bilat LE U/S r/o DVT Repeat Blood cults - pending 07/05 Will add back Micafungin in WBC increases or he decompensates Consider Repeat CT scan Abd/pel Await Pulm F/u re CT ? if fluid can be drawn off left side based on CT - IR to evaluate D/c'd Meropenem and started Cefepime/Flagyl 07/05 Discontinued micafungin - try to taper some meds (06/19 - 07/06) - If Fever persists or decompensates will add back Cont daptomycin (07/02); restarted Zyvox (07/03) ( better lung penetration) Pancultures (07/03) neg so far Maintain aspiration precaution. Gen surgery following D/w nursing Critically ill D/w 07/07 LE CROWLEY MD Jul 10, 2019 08:49
[2019-07-10] MEDS: FUROSEMIDE 40 MG/4 ML VIAL. IVP SCH (09:00)
[2019-07-10] MEDS: TPN PER PHARMACY MC PRN (09:30)
--- NOTE | 2019-07-10 09:37 | NUR ---
SS following up with discharge planning. SS phoned and faxed clinical updates to [facility], ; [phone]. Pt accepted and has insurance authorization. Surgery not signed off at this time. SS will continue to follow for discharge planning.
--- NOTE | 2019-07-10 09:40 | PDOC ---
SURGICAL PROGRESS NOTE Subjective vent Vital Signs Vital Signs Date Time Temp Pulse Resp B/P (MAP) Pulse Ox O2 Delivery O2 Flow Rate FiO2 07/10/19 08:02 100 Ventilator 07/10/19 07:00 70 20 115/79 (91) 07/10/19 05:55 3.0 07/10/19 04:00 99.5 99.5 I&O Intake and Output 07/10/19 07:00 Intake Total 4026.8 ml Output Total 3130 ml Balance 896.8 ml IV Total 2322.8 ml Blood Product IV Normal Saline Flush 1704 ml Output Urine Total 2660 ml Drainage Total 470 ml PATIENT HAS A LEPE: Yes General: Other (sedated ) HEENT: Other (trach) Abdomen: Other (distended, drains in place) Labs Laboratory Tests Test 07/08/19 12:42 07/08/19 17:36 07/08/19 23:49 07/09/19 05:45 Glucose (Fingerstick) 142 mg/dL (70-99) 126 mg/dL (70-99) 127 mg/dL (70-99) White Blood Count 14.5 x10^3/uL (4.0-11.0) Red Blood Count 2.64 x10^6/uL (4.30-5.70) Hemoglobin 7.6 g/dL (13.0-17.5) Hematocrit 23.8 % (39.0-53.0) Mean Corpuscular Volume 90 fL (79-100) Mean Corpuscular Hemoglobin 29 pg (25-35) Mean Corpuscular Hemoglobin Concent 32 g/dL (31-37) Red Cell Distribution Width 15.4 % (11.5-14.5) Platelet Count 430 x10^3/uL (140-400) Neutrophils (%) (Auto) 83 % (31-73) Lymphocytes (%) (Auto) 8 % (24-48) Monocytes (%) (Auto) 8 % (0-9) Eosinophils (%) (Auto) 1 % (0-3) Basophils (%) (Auto) 0 % (0-3) Neutrophils # (Auto) 12.0 x10^3/uL (1.8-7.7) Lymphocytes # (Auto) 1.2 x10^3/uL (1.0-4.8) Monocytes # (Auto) 1.1 x10^3/uL (0.0-1.1) Eosinophils # (Auto) 0.1 x10^3/uL (0.0-0.7) Basophils # (Auto) 0.1 x10^3/uL (0.0-0.2) Sodium Level 147 mmol/L (136-145) Potassium Level 3.7 mmol/L (3.5-5.1) Chloride Level 113 mmol/L (98-107) Carbon Dioxide Level 28 mmol/L (21-32) Anion Gap 6 (6-14) Blood Urea Nitrogen 30 mg/dL (8-26) Creatinine 0.9 mg/dL (0.7-1.3) Estimated GFR (Cockcroft-Gault) 108.5 BUN/Creatinine Ratio 33 (6-20) Glucose Level 121 mg/dL (70-99) Calcium Level 8.0 mg/dL (8.5-10.1) Phosphorus Level 2.8 mg/dL (2.6-4.7) Magnesium Level 1.9 mg/dL (1.8-2.4) Total Bilirubin 3.8 mg/dL (0.2-1.0) Aspartate Amino Transf (AST/SGOT) 45 U/L (15-37) Alanine Aminotransferase (ALT/SGPT) 58 U/L (16-63) Alkaline Phosphatase 219 U/L (46-116) Total Protein 6.0 g/dL (6.4-8.2) Albumin 1.0 g/dL (3.4-5.0) Albumin/Globulin Ratio 0.2 (1.0-1.7) Lipase 152 U/L (73-393) Test 07/09/19 05:54 07/09/19 08:40 07/09/19 12:04 07/09/19 17:24 Glucose (Fingerstick) 124 mg/dL (70-99) 148 mg/dL (70-99) 112 mg/dL (70-99) O2 Saturation 97 % (92-99) Arterial Blood pH 7.40 (7.35-7.45) Arterial Blood pCO2 at Patient Temp 41 mmHg (35-46) Arterial Blood pO2 at Patient Temp 100 mmHg (75-108) Arterial Blood HCO3 25 mmol/L (21-28) Arterial Blood Base Excess 0 mmol/L (-3-3) FiO2 40 Test 07/09/19 22:06 07/10/19 00:15 07/10/19 05:53 07/10/19 06:20 Glucose (Fingerstick) 101 mg/dL (70-99) 117 mg/dL (70-99) 130 mg/dL (70-99) White Blood Count 13.4 x10^3/uL (4.0-11.0) Red Blood Count 2.59 x10^6/uL (4.30-5.70) Hemoglobin 7.5 g/dL (13.0-17.5) Hematocrit 23.5 % (39.0-53.0) Mean Corpuscular Volume 91 fL (79-100) Mean Corpuscular Hemoglobin 29 pg (25-35) Mean Corpuscular Hemoglobin Concent 32 g/dL (31-37) Red Cell Distribution Width 15.4 % (11.5-14.5) Platelet Count 411 x10^3/uL (140-400) Neutrophils (%) (Auto) 84 % (31-73) Lymphocytes (%) (Auto) 7 % (24-48) Monocytes (%) (Auto) 8 % (0-9) Eosinophils (%) (Auto) 1 % (0-3) Basophils (%) (Auto) 0 % (0-3) Neutrophils # (Auto) 11.2 x10^3/uL (1.8-7.7) Lymphocytes # (Auto) 1.0 x10^3/uL (1.0-4.8) Monocytes # (Auto) 1.1 x10^3/uL (0.0-1.1) Eosinophils # (Auto) 0.1 x10^3/uL (0.0-0.7) Basophils # (Auto) 0.0 x10^3/uL (0.0-0.2) Sodium Level 147 mmol/L (136-145) Potassium Level 3.7 mmol/L (3.5-5.1) Chloride Level 113 mmol/L (98-107) Carbon Dioxide Level 26 mmol/L (21-32) Anion Gap 8 (6-14) Blood Urea Nitrogen 28 mg/dL (8-26) Creatinine 0.9 mg/dL (0.7-1.3) Estimated GFR (Cockcroft-Gault) 108.5 BUN/Creatinine Ratio 31 (6-20) Glucose Level 127 mg/dL (70-99) Calcium Level 7.9 mg/dL (8.5-10.1) Total Bilirubin 4.0 mg/dL (0.2-1.0) Aspartate Amino Transf (AST/SGOT) 46 U/L (15-37) Alanine Aminotransferase (ALT/SGPT) 51 U/L (16-63) Alkaline Phosphatase 217 U/L (46-116) Total Protein 6.1 g/dL (6.4-8.2) Albumin 1.0 g/dL (3.4-5.0) Albumin/Globulin Ratio 0.2 (1.0-1.7) Test 07/10/19 08:10 O2 Saturation 98 % (92-99) Arterial Blood pH 7.41 (7.35-7.45) Arterial Blood pCO2 at Patient Temp 39 mmHg (35-46) Arterial Blood pO2 at Patient Temp 116 mmHg (75-108) Arterial Blood HCO3 24 mmol/L (21-28) Arterial Blood Base Excess -1 mmol/L (-3-3) FiO2 40% Laboratory Tests Test 07/09/19 12:04 07/09/19 17:24 07/09/19 22:06 07/10/19 00:15 Glucose (Fingerstick) 148 mg/dL (70-99) 112 mg/dL (70-99) 101 mg/dL (70-99) 117 mg/dL (70-99) Test 07/10/19 05:53 07/10/19 06:20 07/10/19 08:10 Glucose (Fingerstick) 130 mg/dL (70-99) White Blood Count 13.4 x10^3/uL (4.0-11.0) Red Blood Count 2.59 x10^6/uL (4.30-5.70) Hemoglobin 7.5 g/dL (13.0-17.5) Hematocrit 23.5 % (39.0-53.0) Mean Corpuscular Volume 91 fL (79-100) Mean Corpuscular Hemoglobin 29 pg (25-35) Mean Corpuscular Hemoglobin Concent 32 g/dL (31-37) Red Cell Distribution Width 15.4 % (11.5-14.5) Platelet Count 411 x10^3/uL (140-400) Neutrophils (%) (Auto) 84 % (31-73) Lymphocytes (%) (Auto) 7 % (24-48) Monocytes (%) (Auto) 8 % (0-9) Eosinophils (%) (Auto) 1 % (0-3) Basophils (%) (Auto) 0 % (0-3) Neutrophils # (Auto) 11.2 x10^3/uL (1.8-7.7) Lymphocytes # (Auto) 1.0 x10^3/uL (1.0-4.8) Monocytes # (Auto) 1.1 x10^3/uL (0.0-1.1) Eosinophils # (Auto) 0.1 x10^3/uL (0.0-0.7) Basophils # (Auto) 0.0 x10^3/uL (0.0-0.2) Sodium Level 147 mmol/L (136-145) Potassium Level 3.7 mmol/L (3.5-5.1) Chloride Level 113 mmol/L (98-107) Carbon Dioxide Level 26 mmol/L (21-32) Anion Gap 8 (6-14) Blood Urea Nitrogen 28 mg/dL (8-26) Creatinine 0.9 mg/dL (0.7-1.3) Estimated GFR (Cockcroft-Gault) 108.5 BUN/Creatinine Ratio 31 (6-20) Glucose Level 127 mg/dL (70-99) Calcium Level 7.9 mg/dL (8.5-10.1) Total Bilirubin 4.0 mg/dL (0.2-1.0) Aspartate Amino Transf (AST/SGOT) 46 U/L (15-37) Alanine Aminotransferase (ALT/SGPT) 51 U/L (16-63) Alkaline Phosphatase 217 U/L (46-116) Total Protein 6.1 g/dL (6.4-8.2) Albumin 1.0 g/dL (3.4-5.0) Albumin/Globulin Ratio 0.2 (1.0-1.7) O2 Saturation 98 % (92-99) Arterial Blood pH 7.41 (7.35-7.45) Arterial Blood pCO2 at Patient Temp 39 mmHg (35-46) Arterial Blood pO2 at Patient Temp 116 mmHg (75-108) Arterial Blood HCO3 24 mmol/L (21-28) Arterial Blood Base Excess -1 mmol/L (-3-3) FiO2 40% Problem List Problems Medical Problems: (1) Acute pancreatitis Status: Acute (2) Nausea & vomiting Status: Acute Assessment/Plan supportive care MAXIMILIANO GREENBERG APRN Jul 10, 2019 09:40
--- NOTE | 2019-07-10 09:43 | NUR ---
Pharmacy TPN Dosing Note S: CHRISTOPHER NEWSOME is a 49 year old M Currently receiving Central Continuous TPN started 06/19/19 B:Pertinent PMH: PANCREATITIS Height: 5 feet, 9 inches Weight: 108.4 kg Current diet: NPO LABS: Sodium: 147 Potassium: 3.7 Chloride: 113 Calcium: 7.9 Corrected Calcium: 10.30 Magnesium: 1.9 CO2: 26 SCr: 0.9 Glucose: 121 Albumin: 1.0 AST: 45 ALT: 58 TPN FORMULA: TPN TYPE: Central Continuous AMINO ACIDS: 145 gm DEXTROSE: 285 gm LIPIDS: 20 gm POTASSIUM ACETATE: 15 mEq POTASSIUM PHOSPHATE: 15 mmol MAGNESIUM: 10 mEq CALCIUM: 10 mEq MULTIPLE VITAMIN: 10 ml TRACE ELEMENTS: 0.5 ml(s) TPN PLAN: Labs stable today - cont same R: Continue TPN Will monitor electrolytes, glucose, and tolerance to TPN. Azul Rodriges Taylor, 07/10/19 0943
--- NOTE | 2019-07-10 10:18 | PDOC ---
Objective: Objective: D/w nurse - stable. Vital Signs: Vital Signs Date Time Temp Pulse Resp B/P (MAP) Pulse Ox O2 Delivery O2 Flow Rate FiO2 07/10/19 09:36 98 Ventilator 07/10/19 07:00 70 20 115/79 (91) 07/10/19 05:55 3.0 07/10/19 04:00 99.5 99.5 Labs: Laboratory Tests Test 07/09/19 12:04 07/09/19 17:24 07/09/19 22:06 07/10/19 00:15 Glucose (Fingerstick) 148 mg/dL (70-99) 112 mg/dL (70-99) 101 mg/dL (70-99) 117 mg/dL (70-99) Test 07/10/19 05:53 07/10/19 10:07 Glucose (Fingerstick) 130 mg/dL (70-99) 131 mg/dL (70-99) Imaging: CXR 07/09 Impression: Low lung volumes and technique accentuates heart size and pulmonary vascularity. Mild cardiomegaly. Tracheostomy is identified. Interval removal of right-sided PICC line. Interval placement of left internal jugular line in place. Moderate prominent bilateral interstitial lung markings likely congestive changes with airspace opacities identified in the left lung slightly increased since prior exam. LE US 07/09 pending PE: GEN: trach/vent LUNGS: clear HEART: RRR ABD: distended, drains NEURO/PSYCH: sedated A/P: S/p pancreatic necrosectomy, MOSF, fever -- Will review w/ Dr. Coker. Hemodynamically unstable?: No Is patient in severe pain?: No Is NPO status required?: Yes PAXTON ALEXANDER Jul 10, 2019 10:18
[2019-07-10] MEDS: INSULIN GLARGINE SYRINGE. SQ SCH ×2 (10:23→20:38)
--- NOTE | 2019-07-10 10:29 | RAD ---
Examination: Bilateral Lower Extremity Venous Doppler Ultrasound History: Bilateral lower extremity swelling Comparison: None Procedure: Sinclair scale, color flow 2D and spectal waveform analysis images are obtained with and without compression in the area of the common femoral vein, superficial femoral vein - femoral vein junction, main femoral vein (superficial femoral vein) and popliteal vein. Veins of the proximal calf are also imaged. Findings: There is normal duplex flow, color flow and compressibility of all visualized vein segments. No evidence of deep venous thrombus is present. Examination is limited as patient is on ventilation and due to movement. Mild soft tissue edema bilateral lower legs. Impression: No evidence of DVT in the visualized bilateral lower extremity venous system. Electronically signed by: Hima Rosenbaum MD (07/10/2019 10:27 AM) [id number]
[2019-07-10] MEDS: DAPTOmycin (GENERIC) IVPB 520 MG in IV NORMAL SALINE 50ML 50 ML IV SCH (10:54)
--- NOTE | 2019-07-10 10:56 | PDOC ---
PULMONARY PROGRESS NOTES Subjective Patient sedated on assist control ventilation still with fevers Vitals Vital Signs Date Time Temp Pulse Resp B/P (MAP) Pulse Ox O2 Delivery O2 Flow Rate FiO2 07/10/19 09:36 98 Ventilator 07/10/19 07:00 70 20 115/79 (91) 07/10/19 05:55 3.0 07/10/19 04:00 99.5 99.5 Comments ros unable to obtain sedated on vent HEENT: Other (nc at perrl nose clear, neck, trach site ok, no lad, no thyromegaly) Lungs: Other (decrease bs) Cardiovascular: S1, S2 Abdomen: Other (/distended/firm ) Extremities: No Edema Skin: Warm Labs Laboratory Tests Test 07/08/19 12:42 07/08/19 17:36 07/08/19 23:49 07/09/19 05:45 Glucose (Fingerstick) 142 mg/dL (70-99) 126 mg/dL (70-99) 127 mg/dL (70-99) White Blood Count 14.5 x10^3/uL (4.0-11.0) Red Blood Count 2.64 x10^6/uL (4.30-5.70) Hemoglobin 7.6 g/dL (13.0-17.5) Hematocrit 23.8 % (39.0-53.0) Mean Corpuscular Volume 90 fL (79-100) Mean Corpuscular Hemoglobin 29 pg (25-35) Mean Corpuscular Hemoglobin Concent 32 g/dL (31-37) Red Cell Distribution Width 15.4 % (11.5-14.5) Platelet Count 430 x10^3/uL (140-400) Neutrophils (%) (Auto) 83 % (31-73) Lymphocytes (%) (Auto) 8 % (24-48) Monocytes (%) (Auto) 8 % (0-9) Eosinophils (%) (Auto) 1 % (0-3) Basophils (%) (Auto) 0 % (0-3) Neutrophils # (Auto) 12.0 x10^3/uL (1.8-7.7) Lymphocytes # (Auto) 1.2 x10^3/uL (1.0-4.8) Monocytes # (Auto) 1.1 x10^3/uL (0.0-1.1) Eosinophils # (Auto) 0.1 x10^3/uL (0.0-0.7) Basophils # (Auto) 0.1 x10^3/uL (0.0-0.2) Sodium Level 147 mmol/L (136-145) Potassium Level 3.7 mmol/L (3.5-5.1) Chloride Level 113 mmol/L (98-107) Carbon Dioxide Level 28 mmol/L (21-32) Anion Gap 6 (6-14) Blood Urea Nitrogen 30 mg/dL (8-26) Creatinine 0.9 mg/dL (0.7-1.3) Estimated GFR (Cockcroft-Gault) 108.5 BUN/Creatinine Ratio 33 (6-20) Glucose Level 121 mg/dL (70-99) Calcium Level 8.0 mg/dL (8.5-10.1) Phosphorus Level 2.8 mg/dL (2.6-4.7) Magnesium Level 1.9 mg/dL (1.8-2.4) Total Bilirubin 3.8 mg/dL (0.2-1.0) Aspartate Amino Transf (AST/SGOT) 45 U/L (15-37) Alanine Aminotransferase (ALT/SGPT) 58 U/L (16-63) Alkaline Phosphatase 219 U/L (46-116) Total Protein 6.0 g/dL (6.4-8.2) Albumin 1.0 g/dL (3.4-5.0) Albumin/Globulin Ratio 0.2 (1.0-1.7) Lipase 152 U/L (73-393) Test 07/09/19 05:54 07/09/19 08:40 07/09/19 12:04 07/09/19 17:24 Glucose (Fingerstick) 124 mg/dL (70-99) 148 mg/dL (70-99) 112 mg/dL (70-99) O2 Saturation 97 % (92-99) Arterial Blood pH 7.40 (7.35-7.45) Arterial Blood pCO2 at Patient Temp 41 mmHg (35-46) Arterial Blood pO2 at Patient Temp 100 mmHg (75-108) Arterial Blood HCO3 25 mmol/L (21-28) Arterial Blood Base Excess 0 mmol/L (-3-3) FiO2 40 Test 07/09/19 22:06 07/10/19 00:15 07/10/19 05:53 07/10/19 06:20 Glucose (Fingerstick) 101 mg/dL (70-99) 117 mg/dL (70-99) 130 mg/dL (70-99) White Blood Count 13.4 x10^3/uL (4.0-11.0) Red Blood Count 2.59 x10^6/uL (4.30-5.70) Hemoglobin 7.5 g/dL (13.0-17.5) Hematocrit 23.5 % (39.0-53.0) Mean Corpuscular Volume 91 fL (79-100) Mean Corpuscular Hemoglobin 29 pg (25-35) Mean Corpuscular Hemoglobin Concent 32 g/dL (31-37) Red Cell Distribution Width 15.4 % (11.5-14.5) Platelet Count 411 x10^3/uL (140-400) Neutrophils (%) (Auto) 84 % (31-73) Lymphocytes (%) (Auto) 7 % (24-48) Monocytes (%) (Auto) 8 % (0-9) Eosinophils (%) (Auto) 1 % (0-3) Basophils (%) (Auto) 0 % (0-3) Neutrophils # (Auto) 11.2 x10^3/uL (1.8-7.7) Lymphocytes # (Auto) 1.0 x10^3/uL (1.0-4.8) Monocytes # (Auto) 1.1 x10^3/uL (0.0-1.1) Eosinophils # (Auto) 0.1 x10^3/uL (0.0-0.7) Basophils # (Auto) 0.0 x10^3/uL (0.0-0.2) Sodium Level 147 mmol/L (136-145) Potassium Level 3.7 mmol/L (3.5-5.1) Chloride Level 113 mmol/L (98-107) Carbon Dioxide Level 26 mmol/L (21-32) Anion Gap 8 (6-14) Blood Urea Nitrogen 28 mg/dL (8-26) Creatinine 0.9 mg/dL (0.7-1.3) Estimated GFR (Cockcroft-Gault) 108.5 BUN/Creatinine Ratio 31 (6-20) Glucose Level 127 mg/dL (70-99) Calcium Level 7.9 mg/dL (8.5-10.1) Total Bilirubin 4.0 mg/dL (0.2-1.0) Aspartate Amino Transf (AST/SGOT) 46 U/L (15-37) Alanine Aminotransferase (ALT/SGPT) 51 U/L (16-63) Alkaline Phosphatase 217 U/L (46-116) Total Protein 6.1 g/dL (6.4-8.2) Albumin 1.0 g/dL (3.4-5.0) Albumin/Globulin Ratio 0.2 (1.0-1.7) Test 07/10/19 08:10 07/10/19 10:07 O2 Saturation 98 % (92-99) Arterial Blood pH 7.41 (7.35-7.45) Arterial Blood pCO2 at Patient Temp 39 mmHg (35-46) Arterial Blood pO2 at Patient Temp 116 mmHg (75-108) Arterial Blood HCO3 24 mmol/L (21-28) Arterial Blood Base Excess -1 mmol/L (-3-3) FiO2 40% Glucose (Fingerstick) 131 mg/dL (70-99) Laboratory Tests Test 07/09/19 12:04 07/09/19 17:24 07/09/19 22:06 07/10/19 00:15 Glucose (Fingerstick) 148 mg/dL (70-99) 112 mg/dL (70-99) 101 mg/dL (70-99) 117 mg/dL (70-99) Test 07/10/19 05:53 07/10/19 06:20 07/10/19 08:10 07/10/19 10:07 Glucose (Fingerstick) 130 mg/dL (70-99) 131 mg/dL (70-99) White Blood Count 13.4 x10^3/uL (4.0-11.0) Red Blood Count 2.59 x10^6/uL (4.30-5.70) Hemoglobin 7.5 g/dL (13.0-17.5) Hematocrit 23.5 % (39.0-53.0) Mean Corpuscular Volume 91 fL (79-100) Mean Corpuscular Hemoglobin 29 pg (25-35) Mean Corpuscular Hemoglobin Concent 32 g/dL (31-37) Red Cell Distribution Width 15.4 % (11.5-14.5) Platelet Count 411 x10^3/uL (140-400) Neutrophils (%) (Auto) 84 % (31-73) Lymphocytes (%) (Auto) 7 % (24-48) Monocytes (%) (Auto) 8 % (0-9) Eosinophils (%) (Auto) 1 % (0-3) Basophils (%) (Auto) 0 % (0-3) Neutrophils # (Auto) 11.2 x10^3/uL (1.8-7.7) Lymphocytes # (Auto) 1.0 x10^3/uL (1.0-4.8) Monocytes # (Auto) 1.1 x10^3/uL (0.0-1.1) Eosinophils # (Auto) 0.1 x10^3/uL (0.0-0.7) Basophils # (Auto) 0.0 x10^3/uL (0.0-0.2) Sodium Level 147 mmol/L (136-145) Potassium Level 3.7 mmol/L (3.5-5.1) Chloride Level 113 mmol/L (98-107) Carbon Dioxide Level 26 mmol/L (21-32) Anion Gap 8 (6-14) Blood Urea Nitrogen 28 mg/dL (8-26) Creatinine 0.9 mg/dL (0.7-1.3) Estimated GFR (Cockcroft-Gault) 108.5 BUN/Creatinine Ratio 31 (6-20) Glucose Level 127 mg/dL (70-99) Calcium Level 7.9 mg/dL (8.5-10.1) Total Bilirubin 4.0 mg/dL (0.2-1.0) Aspartate Amino Transf (AST/SGOT) 46 U/L (15-37) Alanine Aminotransferase (ALT/SGPT) 51 U/L (16-63) Alkaline Phosphatase 217 U/L (46-116) Total Protein 6.1 g/dL (6.4-8.2) Albumin 1.0 g/dL (3.4-5.0) Albumin/Globulin Ratio 0.2 (1.0-1.7) O2 Saturation 98 % (92-99) Arterial Blood pH 7.41 (7.35-7.45) Arterial Blood pCO2 at Patient Temp 39 mmHg (35-46) Arterial Blood pO2 at Patient Temp 116 mmHg (75-108) Arterial Blood HCO3 24 mmol/L (21-28) Arterial Blood Base Excess -1 mmol/L (-3-3) FiO2 40% Medications Active Scripts Medications Dose Route/Sig Max Daily Dose Days Date Category Comments CXR 07/09 reviewed. No great change although left infiltrate slightly more dense ct of chest and abd 1. Redemonstrated sequela of necrotic pancreatitis. As before there is extensive mesenteric edema but the volume of free abdominopelvic fluid has decreased. Edematous enlargement of the pancreas has slightly decreased. A fluid collection along the undersurface of the stomach has decreased in size, as detailed above. A loculated appearing fluid collection within the mid abdomen anterior to the IVC and aorta (image 55 series 4) measures similar to the prior. Ill-defined area of hypoattenuation involving the mid pancreatic body is slightly more conspicuous from the prior (image 37 series 4). It is uncertain if this represents evolving parenchymal necrosis or a developing fluid collection as assessment is limited without intravenous contrast. No air and fluid containing collection seen to suggest an abscess but note is made that the sterility of the aforementioned fluid collections is indeterminate by the imaging appearance alone. 2. Extensive reactive inflammatory changes of the abdominopelvic organs. No findings of bowel obstruction. 3. A gastrostomy tube has been placed in the interim. The tube tip is not within the stomach and is seen at the distal end of the surgical tract just deep to the ventral body wall musculature - sagittal images 35 and 36 series 9. 4. Three abdominal drains. No discrete fluid collection surrounding the tips of these drains. Cholecystostomy tube, ET tube, enteric tube, [place] and right PICC are appropriately positioned. 5. Partial collapse of the left more so than right lower lobes. Moderate-sized left pleural effusion with overlying atelectasis. No infiltrate typical of an organizing pneumonia identified. Impression . IMPRESSION: 1. Acute hypoxemic respiratory failure, multifactorial. 2. Acute gallstone pancreatitis./ Necrosis. s/p Exploratory laparotomy, pancre atic necrosectomy, cholecystostomy tube placement, Gastrostomy placement with jejunal extension, tracheostomy placement (specifically 8 shiley cuffed) 06/21 3. Acute kidney failure. improving 4. Metabolic toxic encephalopathy. 5. Hyperkalemia.corrected 6. Metabolic / respiratory acidosis 7. Hypocalcemia. 8. POSSIBLE ABD COMPARTMENT SYNDROME , s/p Exp lap 9. HEP B S POSITIVE 10. Hypernatremia, resolved 11. LLL small effusion, monitor 12. FEVER PER ID 13. Occlusive thrombus within the cephalic vein no DVT on ultrasound ri Plan . Continue current antibiotics per ID Continue assist control ventilation. I would not attempt weaning mech ventilation until more stable. f/u cxr in am Follow surgery input Case discussed with RN CCM time reviewing chart, examining patient, reviewing xrays and determining care 35 min. WANDA COOPER MD Jul 10, 2019 10:56
--- NOTE | 2019-07-10 12:11 | NUR ---
SS following up with discharge planning. Pt accepted at [facility], ; fax [phone], pending insurance authorization. SS will continue to follow for discharge planning. Addendum: 07/10/19 at 1215 by FAREED KIDD SS Amendment to previous note: PLEASE DISREGARD. WRONG PT.
--- NOTE | 2019-07-10 12:22 | PDOC ---
[facility] PROGRESS NOTE Chief Complaint Chief Complaint Severe pancreatitis with the following surgery: Exploratory laparotomy, pancreatic necrosectomy, cholecystostomy tube placement, Gastrostomy placement with jejunal extension, tracheostomy placement (specifically 8 shiley cuffed) Acute hypoxemic respiratory failure, multifactorial. Status post tracheostomy 5 drains Acute gallstone pancreatitis./ Necrosis Acute kidney failure. improving Metabolic toxic encephalopathy. Hyperkalemia.corrected Metabolic / respiratory acidosis Hypocalcemia. Hepatitis B Hypernatremia LLL small effusion, monitor History of Present Illness History of Present Illness [id number] Patient seen and examined in the intensive care unit He remains mechanically ventilated Before meals//40% Extremely critically ill He has 4 or 5 drains in including GJ tube Discussed with RN Chart reviewed [id number] Patient seen and examined in the ICU He is still mechanically ventilated assist-control/ with 40% Chart reviewed Discussed with RN He remains very critically ill [id number] Patient seen and examined in the ICU Discussed with general surgeon and he examined the patient with me Patient's is present in his good support for him Currently still intubated and on the vent He is on assist control with 40% oxygen Remains very critically ill Mr Mata is a 49 yo M admitted with severe epigastric pain beginning in the morning of admission. Ultimately diagnosed with gallstone pancreatitis. Hemodialysis catheter placed for renal failure. Arterial blood gas revealed a pH of 7.30, PaCO2 of 31, PaO2 of 75, bicarb was 15. Consulted ID, GI, General surgery, nephrology, pulmonology 06/21: Ex-lap with pancreatic necrosectomy, cholecystectomy, gastrostomy tube lpacement, tracheostomy placement. 06/22 - 06/26: Has 5 abdominal drains plus a Lobato and an NG to suction, intubated, sedated, paralyzed 06/28- 07/02: remain on micafungin, TPN. Trached on vent, sedated, 40% FiO2 07/03: His dialysis catheter and central line were removed. Ventilated via trach and sedated 07/04: Sedated on precedex. ABG reviewed, stable. Vitals stable, drains stable, still requiring ventilation on trach. Hb 7.6. TAG 1170 changed from propofol to versed for sedation 07/06 reposition G-tube. Overnight sedated. Still febrile. More comfortable on versed for sedation. Hb 7, 1u PRBC ordered. plan: Trend CBC Vitals/I&O Vitals/I&O: Vital Signs Date Time Temp Pulse Resp B/P (MAP) Pulse Ox O2 Delivery O2 Flow Rate FiO2 07/10/19 12:00 99.7 100 20 136/83 (100) 100 Ventilator 99.7 07/10/19 05:55 3.0 I & O 07/09/19 07/09/19 07/10/19 15:00 23:00 07:00 Intake Total 350 ml 1972.8 ml 1704 ml Output Total 1150 ml 1010 ml 970 ml Balance -800 ml 962.8 ml 734 ml Physical Exam Physical Exam: GENERAL: Sedated, trached/vent - appears very comfortable HEENT: Pupils equal reactive NECK: Trach/ no JVD LUNGS: Diminished aeration bases HEART: S1, S2, regular, no murmurs. ABDOMEN: Distended, fairly tight still, bowel sounds quiet, drains x5, wound vac in place : Lobato in place 2 plus edema EXTREMITIES: 1+ - 2 edema, no cyanosis. SCDs bilaterally SKIN: Warm, dry. 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 Left IJ 07/06- clean.Previous RT PICC line clean stie (07/01) - clean General: Other (sedated ) Heart: Regular rate, Normal S1, Normal S2, No murmurs, Gallops Lungs: Other (decrease bs) Abdomen: Other (distended, drains in place) Extremities: No clubbing, No cyanosis, No edema, Normal pulses, No tenderness/swelling Skin: No significant lesion Labs Labs: Laboratory Tests Test 07/09/19 17:24 07/09/19 22:06 07/10/19 00:15 07/10/19 05:53 Glucose (Fingerstick) 112 mg/dL (70-99) 101 mg/dL (70-99) 117 mg/dL (70-99) 130 mg/dL (70-99) Test 07/10/19 06:20 07/10/19 08:10 07/10/19 10:07 White Blood Count 13.4 x10^3/uL (4.0-11.0) Red Blood Count 2.59 x10^6/uL (4.30-5.70) Hemoglobin 7.5 g/dL (13.0-17.5) Hematocrit 23.5 % (39.0-53.0) Mean Corpuscular Volume 91 fL (79-100) Mean Corpuscular Hemoglobin 29 pg (25-35) Mean Corpuscular Hemoglobin Concent 32 g/dL (31-37) Red Cell Distribution Width 15.4 % (11.5-14.5) Platelet Count 411 x10^3/uL (140-400) Neutrophils (%) (Auto) 84 % (31-73) Lymphocytes (%) (Auto) 7 % (24-48) Monocytes (%) (Auto) 8 % (0-9) Eosinophils (%) (Auto) 1 % (0-3) Basophils (%) (Auto) 0 % (0-3) Neutrophils # (Auto) 11.2 x10^3/uL (1.8-7.7) Lymphocytes # (Auto) 1.0 x10^3/uL (1.0-4.8) Monocytes # (Auto) 1.1 x10^3/uL (0.0-1.1) Eosinophils # (Auto) 0.1 x10^3/uL (0.0-0.7) Basophils # (Auto) 0.0 x10^3/uL (0.0-0.2) Sodium Level 147 mmol/L (136-145) Potassium Level 3.7 mmol/L (3.5-5.1) Chloride Level 113 mmol/L (98-107) Carbon Dioxide Level 26 mmol/L (21-32) Anion Gap 8 (6-14) Blood Urea Nitrogen 28 mg/dL (8-26) Creatinine 0.9 mg/dL (0.7-1.3) Estimated GFR (Cockcroft-Gault) 108.5 BUN/Creatinine Ratio 31 (6-20) Glucose Level 127 mg/dL (70-99) Calcium Level 7.9 mg/dL (8.5-10.1) Total Bilirubin 4.0 mg/dL (0.2-1.0) Aspartate Amino Transf (AST/SGOT) 46 U/L (15-37) Alanine Aminotransferase (ALT/SGPT) 51 U/L (16-63) Alkaline Phosphatase 217 U/L (46-116) Total Protein 6.1 g/dL (6.4-8.2) Albumin 1.0 g/dL (3.4-5.0) Albumin/Globulin Ratio 0.2 (1.0-1.7) O2 Saturation 98 % (92-99) Arterial Blood pH 7.41 (7.35-7.45) Arterial Blood pCO2 at Patient Temp 39 mmHg (35-46) Arterial Blood pO2 at Patient Temp 116 mmHg (75-108) Arterial Blood HCO3 24 mmol/L (21-28) Arterial Blood Base Excess -1 mmol/L (-3-3) FiO2 40% Glucose (Fingerstick) 131 mg/dL (70-99) Assessment and Plan Assessmemt and Plan Problems Medical Problems: (1) Acute pancreatitis Status: Acute (2) Nausea & vomiting Status: Acute Severe pancreatitis with the following surgery: Exploratory laparotomy, pancreatic necrosectomy, cholecystostomy tube placement, Gastrostomy placement with jejunal extension, tracheostomy placement (specifically 8 shiley cuffed) Acute hypoxemic respiratory failure, multifactorial. Status post tracheostomy 5 drains Acute gallstone pancreatitis./ Necrosis Acute kidney failure. improving Metabolic toxic encephalopathy. Hyperkalemia.corrected Metabolic / respiratory acidosis Hypocalcemia. Hepatitis B Hypernatremia LLL small effusion, monitor Plan: Continue ICU monitoring Continue to monitor intraabdominal pressures IV micafungin GEN IV insulin DVT prophylaxis We have a GJ tube and hope to begin feedings into the jejunum eventually For now continue TPN I discussed with case management he has been accepted at the LTAC Dr. Smyth would like to wait till next week for the LTAC and I agree Appreciate subspecialist input Vent weaning if possible IV antibiotics IV paralytics and IV sedatives Trend labs Wound care We are managing 5 abdominal drains He remains critically ill Prognosis extremely guarded Total time 34 minutes Comment Review of Relevant I have reviewed the following items alexandra (where applicable) has been applied. Medications: Current Medications Medications (Trade) Dose Ordered Sig/Jesse Route PRN Reason Start Time Stop Time Status Last Admin Dose Admin Potassium Acetate 15 meq/Potassium Phosphate 15 mmol/ Magnesium Sulfate 10 meq/Calcium Gluconate 10 meq/ Multivitamins 10 ml/Chromium/ Copper/Manganese/ Seleni/Zn 0.5 ml/ Total Parenteral Nutrition/Amino Acids/Dextrose/ Fat Emulsion Intravenous 1,920 ml @ 80 mls/hr TPN CONT IV 07/09/19 22:00 07/10/19 21:59 07/09/19 21:39 Hemodynamically unstable?: No Is patient in severe pain?: No Is NPO status required?: Yes JUSTIN WORKMAN III DO Jul 10, 2019 12:22
[2019-07-10] MEDS: IV NORMAL SALINE 1000ML BAG 1,000 ML IV SCH (14:54)
[2019-07-10] MEDS ORDERED: DEXTROSE 70% IV SCH ×9 (22:00)
[2019-07-10] MEDS ORDERED: TOTAL PARENTERAL NUTRITION IV SCH ×9 (22:00)
[2019-07-10] MEDS ORDERED: AMINO ACID IV SCH ×9 (22:00)
[2019-07-10] MEDS ORDERED: [UNRECOGNIZED DRUG - OTHER] IV SCH ×9 (22:00)
[2019-07-11] VITALS (25 sets, daily range): BP systolic 91–135; BP diastolic 56–79
[2019-07-11] MEDS: MIDAZOLAM HCL 50 MG in IV NORMAL SALINE 50ML 50 ML IV PRN ×5 (01:19→21:32)
[2019-07-11] MEDS: DEXMEDETOMIDINE 400 MCG in IV NORMAL SALINE 100ML 96 ML IV PRN ×8 (01:20→21:32)
[2019-07-11] MEDS: CEFEPIME HCL IV Push 2 GM VIAL. IVP SCH ×3 (05:25→21:32)
[2019-07-11] MEDS: PANTOPRAZOLE IV PUSH 40 MG VIAL. IVP SCH ×2 (05:25→17:00)
[2019-07-11] MEDS: ENOXAPARIN 40 MG/0.4 ML SYRINGE. SQ SCH (05:26)
[2019-07-11] MEDS: INSULIN LISPRO 300 UNITS/3 ML VIAL. SQ SCH ×3 (05:26→17:01)
[2019-07-11 06:16] LABS: BASO # 0.1 x10^3/uL (0.0-0.2); BASO % 1 % (0-3); EOS # 0.1 x10^3/uL (0.0-0.7); EOS % 1 % (0-3); HEMATOCRIT 23.7 % (39.0-53.0); HEMOGLOBIN 7.5 g/dL (13.0-17.5); LYMPH # 1.1 x10^3/uL (1.0-4.8); LYMPH % 9 % (24-48); MEAN CORPUSCULAR HEMOGLOBIN 29 pg (25-35); MEAN CORPUSCULAR HGB CONC 32 g/dL (31-37); MEAN CORPUSCULAR VOLUME 91 fL (79-100); MONO # 0.9 x10^3/uL (0.0-1.1); MONO % 8 % (0-9); NEUT # 9.5 x10^3/uL (1.8-7.7); NEUT % 81 % (31-73); PLATELET COUNT 356 x10^3/uL (140-400); RED BLOOD COUNT 2.62 x10^6/uL (4.30-5.70); RED CELL DISTRIBUTION WIDTH 15.2 % (11.5-14.5); WHITE BLOOD COUNT 11.7 x10^3/uL (4.0-11.0)
[2019-07-11 06:21] LABS: ALBUMIN/GLOBULIN RATIO 0.2 (1.0-1.7); CALCIUM 8.1 mg/dL (8.5-10.1); CREATININE 0.9 mg/dL (0.7-1.3); GFR 108.5; POTASSIUM 3.7 mmol/L (3.5-5.1); TOTAL BILIRUBIN 3.5 mg/dL (0.2-1.0); TOTAL PROTEIN 6.2 g/dL (6.4-8.2)
[2019-07-11 06:22] LABS: MAGNESIUM 1.8 mg/dL (1.8-2.4); PHOSPHORUS 2.8 mg/dL (2.6-4.7)
--- NOTE | 2019-07-11 07:14 | PDOC ---
Infectious Disease Note Subjective Subjective Appears comfortable Sedated Trach/vent, FiO2 40% 5 PEEP TPN ROS ROS unable to obtain Vital Sign Vital Signs Vital Signs Date Time Temp Pulse Resp B/P (MAP) Pulse Ox O2 Delivery O2 Flow Rate FiO2 07/11/19 06:00 86 20 112/63 (79) 100 Ventilator 07/11/19 04:00 99.5 99.5 Physical Exam PHYSICAL EXAM GENERAL: Sedated, trached/vent - appears very comfortable HEENT: Pupils equal reactive - mild icteric NECK: Trach/ no JVD LUNGS: Diminished aeration bases HEART: S1, S2, regular, no murmurs. ABDOMEN: Distended, fairly tight still, bowel sounds quiet, drains x5, wound vac in place : Lobato in place 2 plus edema EXTREMITIES: 1+ - 2 edema, no cyanosis. SCDs bilaterally SKIN: Warm, dry. 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 Left IJ 07/06- clean.Previous RT PICC line clean stie (07/01) - clean Labs Lab Laboratory Tests Test 07/10/19 08:10 07/10/19 10:07 07/10/19 14:57 07/10/19 16:45 O2 Saturation 98 % (92-99) Arterial Blood pH 7.41 (7.35-7.45) Arterial Blood pCO2 at Patient Temp 39 mmHg (35-46) Arterial Blood pO2 at Patient Temp 116 mmHg (75-108) Arterial Blood HCO3 24 mmol/L (21-28) Arterial Blood Base Excess -1 mmol/L (-3-3) FiO2 40% Glucose (Fingerstick) 131 mg/dL (70-99) 130 mg/dL (70-99) 119 mg/dL (70-99) Test 07/10/19 23:53 07/11/19 05:24 07/11/19 05:30 07/11/19 06:00 Glucose (Fingerstick) 156 mg/dL (70-99) 130 mg/dL (70-99) Phosphorus Level 2.8 mg/dL (2.6-4.7) Magnesium Level 1.8 mg/dL (1.8-2.4) White Blood Count 11.7 x10^3/uL (4.0-11.0) Red Blood Count 2.62 x10^6/uL (4.30-5.70) Hemoglobin 7.5 g/dL (13.0-17.5) Hematocrit 23.7 % (39.0-53.0) Mean Corpuscular Volume 91 fL (79-100) Mean Corpuscular Hemoglobin 29 pg (25-35) Mean Corpuscular Hemoglobin Concent 32 g/dL (31-37) Red Cell Distribution Width 15.2 % (11.5-14.5) Platelet Count 356 x10^3/uL (140-400) Neutrophils (%) (Auto) 81 % (31-73) Lymphocytes (%) (Auto) 9 % (24-48) Monocytes (%) (Auto) 8 % (0-9) Eosinophils (%) (Auto) 1 % (0-3) Basophils (%) (Auto) 1 % (0-3) Neutrophils # (Auto) 9.5 x10^3/uL (1.8-7.7) Lymphocytes # (Auto) 1.1 x10^3/uL (1.0-4.8) Monocytes # (Auto) 0.9 x10^3/uL (0.0-1.1) Eosinophils # (Auto) 0.1 x10^3/uL (0.0-0.7) Basophils # (Auto) 0.1 x10^3/uL (0.0-0.2) Sodium Level 146 mmol/L (136-145) Potassium Level 3.7 mmol/L (3.5-5.1) Chloride Level 112 mmol/L (98-107) Carbon Dioxide Level 26 mmol/L (21-32) Anion Gap 8 (6-14) Blood Urea Nitrogen 29 mg/dL (8-26) Creatinine 0.9 mg/dL (0.7-1.3) Estimated GFR (Cockcroft-Gault) 108.5 BUN/Creatinine Ratio 32 (6-20) Glucose Level 141 mg/dL (70-99) Calcium Level 8.1 mg/dL (8.5-10.1) Total Bilirubin 3.5 mg/dL (0.2-1.0) Aspartate Amino Transf (AST/SGOT) 46 U/L (15-37) Alanine Aminotransferase (ALT/SGPT) 48 U/L (16-63) Alkaline Phosphatase 213 U/L (46-116) Total Protein 6.2 g/dL (6.4-8.2) Albumin 1.0 g/dL (3.4-5.0) Albumin/Globulin Ratio 0.2 (1.0-1.7) Micro LE U/S 07/09 Impression: No evidence of DVT in the visualized bilateral lower extremity venous system. Reviewed with nursing 07/09 CT 06/15 Lower chest: Moderate left and small right pleural effusions with adjacent atelectasis. Abdomen and pelvis: Severe findings of pancreatitis. Diffuse hypoattenuation of the pancreas, concerning for necrosis. Evaluation degraded without IV contrast. Fluid collection along the inferior aspect of the stomach measures 9.6 x 4.0 cm. Loculated fluid collection along the anterior aspect of the pancreas measures 3.0 x 2.6 cm. Severe inflammatory changes extending inferiorly. Small perihepatic free fluid. Bilateral perinephric inflammatory changes. Cholelithiasis. The liver, spleen, adrenal glands and kidneys are unremarkable noncontrast appearance. No hydronephrosis. Regions of colonic wall thickening, likely reactive. Normal appendix. Enteric tube within the stomach. No evidence of small bowel obstruction. Duodenal proximal jejunal wall thickening, likely reactive. Multiple enlarged mesenteric lymph nodes.. Catheter within the urinary bladder. Mild body wall edema. Impression: 1. Increased severe pancreatitis with extensive inflammatory changes and hypoattenuation of the pancreas, concerning for necrosis although evaluation degraded without IV contrast. 2. New fluid collection along the inferior aspect of the stomach and anterior aspect of the pancreas. 3. Increased multifocal colonic and small bowel wall thickening, likely reactive. 4. New small perihepatic free fluid. 5. Cholelithiasis. 6. Mesenteric lymphadenopathy, likely reactive. 7. Moderate left and small right pleural effusion with adjacent atelectasis. Microbiology 06/14/19 Blood Culture - Preliminary, Resulted NO GROWTH AFTER 1 DAY Objective Assessment Fever - better? ileus/pancreatitis/abd distension/pleural effusion/occlusive clot in cephalic - blood cults 07/05 - neg - Lines changed 07/06 PICC to LIJ S/p Jejunostomy placement 07/06 per nursing - report no available Leukocytosis - better - ? reactive given procedure 07/06 S/p PRBCs 07/05 Gallbladder stone pancreatitis s/p expl lap, pancreatic necrosectomy, cholecystostomy tube placement, G-tube placement with jejunal extension, 06/21 -gastrostomy tube repositioned by IR 07/03 per nursing - d/w Dr. Mcdonough Intra-abd fluid collections Sepsis from GI - cult neg Acute Resp failure - s/p trach 06/21, vent dependent Lactic acidosis. Acute kidney injury previously requiring dialysis - now with improved UOP, HDC now out Metabolic acidosis. Hypocalcemia Right arm swelling, + occlusive thrombosis within the cephalic vein, no DVT on US Yeast in sputum from 07/03 likely represents colonization - was on antifungal when collected Plan Plan of Care CBC/cmp in am Repeat Blood cults - pending 07/05 Will add back Micafungin in WBC increases or he decompensates - today some better Consider Repeat CT scan Abd/pel Await Pulm F/u re CT ? if fluid can be drawn off left side based on CT - IR to evaluate D/c'd Meropenem and started Cefepime/Flagyl 07/05 Discontinued micafungin - try to taper some meds (06/19 - 07/06) - If Fever persists or decompensates will add back Cont daptomycin (07/02); restarted Zyvox (07/03) ( better lung penetration) Pancultures (07/03) neg so far Maintain aspiration precaution. Gen surgery following D/w nursing Critically ill D/w 07/07 LE CROWLEY MD Jul 11, 2019 07:14
[2019-07-11] MEDS: ALBUTEROL SULFATE 2.5 MG/3 ML NEBU. NEB SCH ×4 (07:38→20:20)
[2019-07-11 08:41] LABS: BASE EXCESS ABG -1 mmol/L (-3-3); HCO3 ABG 24 mmol/L (21-28); PCO2 ABG 42 mmHg (35-46); PO2 ABG 104 mmHg (75-108); SAT O2 ABG 97 % (92-99)
--- NOTE | 2019-07-11 09:03 | PDOC ---
SURGICAL PROGRESS NOTE Subjective d/w nursing, no significant changes Vital Signs Vital Signs Date Time Temp Pulse Resp B/P (MAP) Pulse Ox O2 Delivery O2 Flow Rate FiO2 07/11/19 08:00 100.4 80 20 103/62 (76) 100 Ventilator 100.4 I&O Intake and Output 07/11/19 07:00 Intake Total 4577.3 ml Output Total 3715 ml Balance 862.3 ml IV Total 4577.3 ml Output Urine Total 2965 ml Drainage Total 750 ml General: Other (eyes open, on sedation ) HEENT: Other (vent) Abdomen: Other (abd is softer ) Labs Laboratory Tests Test 07/09/19 12:04 07/09/19 17:24 07/09/19 22:06 07/10/19 00:15 Glucose (Fingerstick) 148 mg/dL (70-99) 112 mg/dL (70-99) 101 mg/dL (70-99) 117 mg/dL (70-99) Test 07/10/19 05:53 07/10/19 06:20 07/10/19 08:10 07/10/19 10:07 Glucose (Fingerstick) 130 mg/dL (70-99) 131 mg/dL (70-99) White Blood Count 13.4 x10^3/uL (4.0-11.0) Red Blood Count 2.59 x10^6/uL (4.30-5.70) Hemoglobin 7.5 g/dL (13.0-17.5) Hematocrit 23.5 % (39.0-53.0) Mean Corpuscular Volume 91 fL (79-100) Mean Corpuscular Hemoglobin 29 pg (25-35) Mean Corpuscular Hemoglobin Concent 32 g/dL (31-37) Red Cell Distribution Width 15.4 % (11.5-14.5) Platelet Count 411 x10^3/uL (140-400) Neutrophils (%) (Auto) 84 % (31-73) Lymphocytes (%) (Auto) 7 % (24-48) Monocytes (%) (Auto) 8 % (0-9) Eosinophils (%) (Auto) 1 % (0-3) Basophils (%) (Auto) 0 % (0-3) Neutrophils # (Auto) 11.2 x10^3/uL (1.8-7.7) Lymphocytes # (Auto) 1.0 x10^3/uL (1.0-4.8) Monocytes # (Auto) 1.1 x10^3/uL (0.0-1.1) Eosinophils # (Auto) 0.1 x10^3/uL (0.0-0.7) Basophils # (Auto) 0.0 x10^3/uL (0.0-0.2) Sodium Level 147 mmol/L (136-145) Potassium Level 3.7 mmol/L (3.5-5.1) Chloride Level 113 mmol/L (98-107) Carbon Dioxide Level 26 mmol/L (21-32) Anion Gap 8 (6-14) Blood Urea Nitrogen 28 mg/dL (8-26) Creatinine 0.9 mg/dL (0.7-1.3) Estimated GFR (Cockcroft-Gault) 108.5 BUN/Creatinine Ratio 31 (6-20) Glucose Level 127 mg/dL (70-99) Calcium Level 7.9 mg/dL (8.5-10.1) Total Bilirubin 4.0 mg/dL (0.2-1.0) Aspartate Amino Transf (AST/SGOT) 46 U/L (15-37) Alanine Aminotransferase (ALT/SGPT) 51 U/L (16-63) Alkaline Phosphatase 217 U/L (46-116) Total Protein 6.1 g/dL (6.4-8.2) Albumin 1.0 g/dL (3.4-5.0) Albumin/Globulin Ratio 0.2 (1.0-1.7) O2 Saturation 98 % (92-99) Arterial Blood pH 7.41 (7.35-7.45) Arterial Blood pCO2 at Patient Temp 39 mmHg (35-46) Arterial Blood pO2 at Patient Temp 116 mmHg (75-108) Arterial Blood HCO3 24 mmol/L (21-28) Arterial Blood Base Excess -1 mmol/L (-3-3) FiO2 40% Test 07/10/19 14:57 07/10/19 16:45 07/10/19 23:53 07/11/19 05:24 Glucose (Fingerstick) 130 mg/dL (70-99) 119 mg/dL (70-99) 156 mg/dL (70-99) 130 mg/dL (70-99) Test 07/11/19 05:30 07/11/19 06:00 Phosphorus Level 2.8 mg/dL (2.6-4.7) Magnesium Level 1.8 mg/dL (1.8-2.4) White Blood Count 11.7 x10^3/uL (4.0-11.0) Red Blood Count 2.62 x10^6/uL (4.30-5.70) Hemoglobin 7.5 g/dL (13.0-17.5) Hematocrit 23.7 % (39.0-53.0) Mean Corpuscular Volume 91 fL (79-100) Mean Corpuscular Hemoglobin 29 pg (25-35) Mean Corpuscular Hemoglobin Concent 32 g/dL (31-37) Red Cell Distribution Width 15.2 % (11.5-14.5) Platelet Count 356 x10^3/uL (140-400) Neutrophils (%) (Auto) 81 % (31-73) Lymphocytes (%) (Auto) 9 % (24-48) Monocytes (%) (Auto) 8 % (0-9) Eosinophils (%) (Auto) 1 % (0-3) Basophils (%) (Auto) 1 % (0-3) Neutrophils # (Auto) 9.5 x10^3/uL (1.8-7.7) Lymphocytes # (Auto) 1.1 x10^3/uL (1.0-4.8) Monocytes # (Auto) 0.9 x10^3/uL (0.0-1.1) Eosinophils # (Auto) 0.1 x10^3/uL (0.0-0.7) Basophils # (Auto) 0.1 x10^3/uL (0.0-0.2) Sodium Level 146 mmol/L (136-145) Potassium Level 3.7 mmol/L (3.5-5.1) Chloride Level 112 mmol/L (98-107) Carbon Dioxide Level 26 mmol/L (21-32) Anion Gap 8 (6-14) Blood Urea Nitrogen 29 mg/dL (8-26) Creatinine 0.9 mg/dL (0.7-1.3) Estimated GFR (Cockcroft-Gault) 108.5 BUN/Creatinine Ratio 32 (6-20) Glucose Level 141 mg/dL (70-99) Calcium Level 8.1 mg/dL (8.5-10.1) Total Bilirubin 3.5 mg/dL (0.2-1.0) Aspartate Amino Transf (AST/SGOT) 46 U/L (15-37) Alanine Aminotransferase (ALT/SGPT) 48 U/L (16-63) Alkaline Phosphatase 213 U/L (46-116) Total Protein 6.2 g/dL (6.4-8.2) Albumin 1.0 g/dL (3.4-5.0) Albumin/Globulin Ratio 0.2 (1.0-1.7) Laboratory Tests Test 07/10/19 10:07 07/10/19 14:57 07/10/19 16:45 07/10/19 23:53 Glucose (Fingerstick) 131 mg/dL (70-99) 130 mg/dL (70-99) 119 mg/dL (70-99) 156 mg/dL (70-99) Test 07/11/19 05:24 07/11/19 05:30 07/11/19 06:00 Glucose (Fingerstick) 130 mg/dL (70-99) Phosphorus Level 2.8 mg/dL (2.6-4.7) Magnesium Level 1.8 mg/dL (1.8-2.4) White Blood Count 11.7 x10^3/uL (4.0-11.0) Red Blood Count 2.62 x10^6/uL (4.30-5.70) Hemoglobin 7.5 g/dL (13.0-17.5) Hematocrit 23.7 % (39.0-53.0) Mean Corpuscular Volume 91 fL (79-100) Mean Corpuscular Hemoglobin 29 pg (25-35) Mean Corpuscular Hemoglobin Concent 32 g/dL (31-37) Red Cell Distribution Width 15.2 % (11.5-14.5) Platelet Count 356 x10^3/uL (140-400) Neutrophils (%) (Auto) 81 % (31-73) Lymphocytes (%) (Auto) 9 % (24-48) Monocytes (%) (Auto) 8 % (0-9) Eosinophils (%) (Auto) 1 % (0-3) Basophils (%) (Auto) 1 % (0-3) Neutrophils # (Auto) 9.5 x10^3/uL (1.8-7.7) Lymphocytes # (Auto) 1.1 x10^3/uL (1.0-4.8) Monocytes # (Auto) 0.9 x10^3/uL (0.0-1.1) Eosinophils # (Auto) 0.1 x10^3/uL (0.0-0.7) Basophils # (Auto) 0.1 x10^3/uL (0.0-0.2) Sodium Level 146 mmol/L (136-145) Potassium Level 3.7 mmol/L (3.5-5.1) Chloride Level 112 mmol/L (98-107) Carbon Dioxide Level 26 mmol/L (21-32) Anion Gap 8 (6-14) Blood Urea Nitrogen 29 mg/dL (8-26) Creatinine 0.9 mg/dL (0.7-1.3) Estimated GFR (Cockcroft-Gault) 108.5 BUN/Creatinine Ratio 32 (6-20) Glucose Level 141 mg/dL (70-99) Calcium Level 8.1 mg/dL (8.5-10.1) Total Bilirubin 3.5 mg/dL (0.2-1.0) Aspartate Amino Transf (AST/SGOT) 46 U/L (15-37) Alanine Aminotransferase (ALT/SGPT) 48 U/L (16-63) Alkaline Phosphatase 213 U/L (46-116) Total Protein 6.2 g/dL (6.4-8.2) Albumin 1.0 g/dL (3.4-5.0) Albumin/Globulin Ratio 0.2 (1.0-1.7) Problem List Problems Medical Problems: (1) Acute pancreatitis Status: Acute (2) Nausea & vomiting Status: Acute Assessment/Plan supportive care MAXIMILIANO GREENBERG MANOMETER TECHNICIAN Jul 11, 2019 09:03
[2019-07-11] MEDS: fentaNYL HIGH DOSE PCA 55 ML IV PRN (09:12)
[2019-07-11] MEDS: FUROSEMIDE 40 MG/4 ML VIAL. IVP SCH (09:12)
[2019-07-11] MEDS: INSULIN GLARGINE SYRINGE. SQ SCH ×2 (09:49→21:42)
--- NOTE | 2019-07-11 10:45 | PDOC ---
Objective: Objective: No significant change per nurse. Vital Signs: Vital Signs Date Time Temp Pulse Resp B/P (MAP) Pulse Ox O2 Delivery O2 Flow Rate FiO2 07/11/19 09:12 100 3.0 07/11/19 08:00 100.4 80 20 103/62 (76) Ventilator 100.4 Labs: Laboratory Tests Test 07/10/19 14:57 07/10/19 16:45 07/10/19 23:53 07/11/19 05:24 Glucose (Fingerstick) 130 mg/dL 119 mg/dL 156 mg/dL 130 mg/dL Test 07/11/19 05:30 07/11/19 06:00 07/11/19 09:48 Phosphorus Level 2.8 mg/dL Magnesium Level 1.8 mg/dL White Blood Count 11.7 x10^3/uL Red Blood Count 2.62 x10^6/uL Hemoglobin 7.5 g/dL Hematocrit 23.7 % Mean Corpuscular Volume 91 fL Mean Corpuscular Hemoglobin 29 pg Mean Corpuscular Hemoglobin Concent 32 g/dL Red Cell Distribution Width 15.2 % Platelet Count 356 x10^3/uL Neutrophils (%) (Auto) 81 % Lymphocytes (%) (Auto) 9 % Monocytes (%) (Auto) 8 % Eosinophils (%) (Auto) 1 % Basophils (%) (Auto) 1 % Neutrophils # (Auto) 9.5 x10^3/uL Lymphocytes # (Auto) 1.1 x10^3/uL Monocytes # (Auto) 0.9 x10^3/uL Eosinophils # (Auto) 0.1 x10^3/uL Basophils # (Auto) 0.1 x10^3/uL Sodium Level 146 mmol/L Potassium Level 3.7 mmol/L Chloride Level 112 mmol/L Carbon Dioxide Level 26 mmol/L Anion Gap 8 Blood Urea Nitrogen 29 mg/dL Creatinine 0.9 mg/dL Estimated GFR (Cockcroft-Gault) 108.5 BUN/Creatinine Ratio 32 Glucose Level 141 mg/dL Calcium Level 8.1 mg/dL Total Bilirubin 3.5 mg/dL Aspartate Amino Transf (AST/SGOT) 46 U/L Alanine Aminotransferase (ALT/SGPT) 48 U/L Alkaline Phosphatase 213 U/L Total Protein 6.2 g/dL Albumin 1.0 g/dL Albumin/Globulin Ratio 0.2 Glucose (Fingerstick) 131 mg/dL BLOOD CULTURE Preliminary NO GROWTH AFTER 4 DAYS Imaging: LE US 07/09 Impression: No evidence of DVT in the visualized bilateral lower extremity venous system. PE: GEN: intubated LUNGS: clear HEART: RRR ABD: distended NEURO/PSYCH: sedated A/P: S/p pancreatic necrosectomy, MOSF, fever -- Continue same. Hemodynamically unstable?: No Is patient in severe pain?: No Is NPO status required?: Yes PAXTON ALEXANDER Jul 11, 2019 10:45
--- NOTE | 2019-07-11 10:57 | PDOC ---
PULMONARY PROGRESS NOTES Subjective Patient sedated on assist control ventilation still with fevers Vitals Vital Signs Date Time Temp Pulse Resp B/P (MAP) Pulse Ox O2 Delivery O2 Flow Rate FiO2 07/11/19 09:12 100 3.0 07/11/19 08:00 100.4 80 20 103/62 (76) Ventilator 100.4 Comments ros unable to obtain sedated on vent HEENT: Other (nc at perrl nose clear, neck, trach site ok, no lad, no thyromegaly) Lungs: Other (decrease bs) Cardiovascular: S1, S2 Abdomen: Other (/distended/firm ) Extremities: No Edema Skin: Warm Labs Laboratory Tests Test 07/09/19 12:04 07/09/19 17:24 07/09/19 22:06 07/10/19 00:15 Glucose (Fingerstick) 148 mg/dL (70-99) 112 mg/dL (70-99) 101 mg/dL (70-99) 117 mg/dL (70-99) Test 07/10/19 05:53 07/10/19 06:20 07/10/19 08:10 07/10/19 10:07 Glucose (Fingerstick) 130 mg/dL (70-99) 131 mg/dL (70-99) White Blood Count 13.4 x10^3/uL (4.0-11.0) Red Blood Count 2.59 x10^6/uL (4.30-5.70) Hemoglobin 7.5 g/dL (13.0-17.5) Hematocrit 23.5 % (39.0-53.0) Mean Corpuscular Volume 91 fL (79-100) Mean Corpuscular Hemoglobin 29 pg (25-35) Mean Corpuscular Hemoglobin Concent 32 g/dL (31-37) Red Cell Distribution Width 15.4 % (11.5-14.5) Platelet Count 411 x10^3/uL (140-400) Neutrophils (%) (Auto) 84 % (31-73) Lymphocytes (%) (Auto) 7 % (24-48) Monocytes (%) (Auto) 8 % (0-9) Eosinophils (%) (Auto) 1 % (0-3) Basophils (%) (Auto) 0 % (0-3) Neutrophils # (Auto) 11.2 x10^3/uL (1.8-7.7) Lymphocytes # (Auto) 1.0 x10^3/uL (1.0-4.8) Monocytes # (Auto) 1.1 x10^3/uL (0.0-1.1) Eosinophils # (Auto) 0.1 x10^3/uL (0.0-0.7) Basophils # (Auto) 0.0 x10^3/uL (0.0-0.2) Sodium Level 147 mmol/L (136-145) Potassium Level 3.7 mmol/L (3.5-5.1) Chloride Level 113 mmol/L (98-107) Carbon Dioxide Level 26 mmol/L (21-32) Anion Gap 8 (6-14) Blood Urea Nitrogen 28 mg/dL (8-26) Creatinine 0.9 mg/dL (0.7-1.3) Estimated GFR (Cockcroft-Gault) 108.5 BUN/Creatinine Ratio 31 (6-20) Glucose Level 127 mg/dL (70-99) Calcium Level 7.9 mg/dL (8.5-10.1) Total Bilirubin 4.0 mg/dL (0.2-1.0) Aspartate Amino Transf (AST/SGOT) 46 U/L (15-37) Alanine Aminotransferase (ALT/SGPT) 51 U/L (16-63) Alkaline Phosphatase 217 U/L (46-116) Total Protein 6.1 g/dL (6.4-8.2) Albumin 1.0 g/dL (3.4-5.0) Albumin/Globulin Ratio 0.2 (1.0-1.7) O2 Saturation 98 % (92-99) Arterial Blood pH 7.41 (7.35-7.45) Arterial Blood pCO2 at Patient Temp 39 mmHg (35-46) Arterial Blood pO2 at Patient Temp 116 mmHg (75-108) Arterial Blood HCO3 24 mmol/L (21-28) Arterial Blood Base Excess -1 mmol/L (-3-3) FiO2 40% Test 07/10/19 14:57 07/10/19 16:45 07/10/19 23:53 07/11/19 05:24 Glucose (Fingerstick) 130 mg/dL (70-99) 119 mg/dL (70-99) 156 mg/dL (70-99) 130 mg/dL (70-99) Test 07/11/19 05:30 07/11/19 06:00 07/11/19 09:48 Phosphorus Level 2.8 mg/dL (2.6-4.7) Magnesium Level 1.8 mg/dL (1.8-2.4) White Blood Count 11.7 x10^3/uL (4.0-11.0) Red Blood Count 2.62 x10^6/uL (4.30-5.70) Hemoglobin 7.5 g/dL (13.0-17.5) Hematocrit 23.7 % (39.0-53.0) Mean Corpuscular Volume 91 fL (79-100) Mean Corpuscular Hemoglobin 29 pg (25-35) Mean Corpuscular Hemoglobin Concent 32 g/dL (31-37) Red Cell Distribution Width 15.2 % (11.5-14.5) Platelet Count 356 x10^3/uL (140-400) Neutrophils (%) (Auto) 81 % (31-73) Lymphocytes (%) (Auto) 9 % (24-48) Monocytes (%) (Auto) 8 % (0-9) Eosinophils (%) (Auto) 1 % (0-3) Basophils (%) (Auto) 1 % (0-3) Neutrophils # (Auto) 9.5 x10^3/uL (1.8-7.7) Lymphocytes # (Auto) 1.1 x10^3/uL (1.0-4.8) Monocytes # (Auto) 0.9 x10^3/uL (0.0-1.1) Eosinophils # (Auto) 0.1 x10^3/uL (0.0-0.7) Basophils # (Auto) 0.1 x10^3/uL (0.0-0.2) Sodium Level 146 mmol/L (136-145) Potassium Level 3.7 mmol/L (3.5-5.1) Chloride Level 112 mmol/L (98-107) Carbon Dioxide Level 26 mmol/L (21-32) Anion Gap 8 (6-14) Blood Urea Nitrogen 29 mg/dL (8-26) Creatinine 0.9 mg/dL (0.7-1.3) Estimated GFR (Cockcroft-Gault) 108.5 BUN/Creatinine Ratio 32 (6-20) Glucose Level 141 mg/dL (70-99) Calcium Level 8.1 mg/dL (8.5-10.1) Total Bilirubin 3.5 mg/dL (0.2-1.0) Aspartate Amino Transf (AST/SGOT) 46 U/L (15-37) Alanine Aminotransferase (ALT/SGPT) 48 U/L (16-63) Alkaline Phosphatase 213 U/L (46-116) Total Protein 6.2 g/dL (6.4-8.2) Albumin 1.0 g/dL (3.4-5.0) Albumin/Globulin Ratio 0.2 (1.0-1.7) Glucose (Fingerstick) 131 mg/dL (70-99) Laboratory Tests Test 07/10/19 14:57 07/10/19 16:45 07/10/19 23:53 07/11/19 05:24 Glucose (Fingerstick) 130 mg/dL (70-99) 119 mg/dL (70-99) 156 mg/dL (70-99) 130 mg/dL (70-99) Test 07/11/19 05:30 07/11/19 06:00 07/11/19 09:48 Phosphorus Level 2.8 mg/dL (2.6-4.7) Magnesium Level 1.8 mg/dL (1.8-2.4) White Blood Count 11.7 x10^3/uL (4.0-11.0) Red Blood Count 2.62 x10^6/uL (4.30-5.70) Hemoglobin 7.5 g/dL (13.0-17.5) Hematocrit 23.7 % (39.0-53.0) Mean Corpuscular Volume 91 fL (79-100) Mean Corpuscular Hemoglobin 29 pg (25-35) Mean Corpuscular Hemoglobin Concent 32 g/dL (31-37) Red Cell Distribution Width 15.2 % (11.5-14.5) Platelet Count 356 x10^3/uL (140-400) Neutrophils (%) (Auto) 81 % (31-73) Lymphocytes (%) (Auto) 9 % (24-48) Monocytes (%) (Auto) 8 % (0-9) Eosinophils (%) (Auto) 1 % (0-3) Basophils (%) (Auto) 1 % (0-3) Neutrophils # (Auto) 9.5 x10^3/uL (1.8-7.7) Lymphocytes # (Auto) 1.1 x10^3/uL (1.0-4.8) Monocytes # (Auto) 0.9 x10^3/uL (0.0-1.1) Eosinophils # (Auto) 0.1 x10^3/uL (0.0-0.7) Basophils # (Auto) 0.1 x10^3/uL (0.0-0.2) Sodium Level 146 mmol/L (136-145) Potassium Level 3.7 mmol/L (3.5-5.1) Chloride Level 112 mmol/L (98-107) Carbon Dioxide Level 26 mmol/L (21-32) Anion Gap 8 (6-14) Blood Urea Nitrogen 29 mg/dL (8-26) Creatinine 0.9 mg/dL (0.7-1.3) Estimated GFR (Cockcroft-Gault) 108.5 BUN/Creatinine Ratio 32 (6-20) Glucose Level 141 mg/dL (70-99) Calcium Level 8.1 mg/dL (8.5-10.1) Total Bilirubin 3.5 mg/dL (0.2-1.0) Aspartate Amino Transf (AST/SGOT) 46 U/L (15-37) Alanine Aminotransferase (ALT/SGPT) 48 U/L (16-63) Alkaline Phosphatase 213 U/L (46-116) Total Protein 6.2 g/dL (6.4-8.2) Albumin 1.0 g/dL (3.4-5.0) Albumin/Globulin Ratio 0.2 (1.0-1.7) Glucose (Fingerstick) 131 mg/dL (70-99) Medications Active Scripts Medications Dose Route/Sig Max Daily Dose Days Date Category Comments CXR 07/09 reviewed. No great change although left infiltrate slightly more dense ct of chest and abd 1. Redemonstrated sequela of necrotic pancreatitis. As before there is extensive mesenteric edema but the volume of free abdominopelvic fluid has decreased. Edematous enlargement of the pancreas has slightly decreased. A fluid collection along the undersurface of the stomach has decreased in size, as detailed above. A loculated appearing fluid collection within the mid abdomen anterior to the IVC and aorta (image 55 series 4) measures similar to the prior. Ill-defined area of hypoattenuation involving the mid pancreatic body is slightly more conspicuous from the prior (image 37 series 4). It is uncertain if this represents evolving parenchymal necrosis or a developing fluid collection as assessment is limited without intravenous contrast. No air and fluid containing collection seen to suggest an abscess but note is made that the sterility of the aforementioned fluid collections is indeterminate by the imaging appearance alone. 2. Extensive reactive inflammatory changes of the abdominopelvic organs. No findings of bowel obstruction. 3. A gastrostomy tube has been placed in the interim. The tube tip is not within the stomach and is seen at the distal end of the surgical tract just deep to the ventral body wall musculature - sagittal images 35 and 36 series 9. 4. Three abdominal drains. No discrete fluid collection surrounding the tips of these drains. Cholecystostomy tube, ET tube, enteric tube, Lobato and right PICC are appropriately positioned. 5. Partial collapse of the left more so than right lower lobes. Moderate-sized left pleural effusion with overlying atelectasis. No infiltrate typical of an organizing pneumonia identified. Impression . IMPRESSION: 1. Acute hypoxemic respiratory failure, multifactorial, worsened cxr 07/09 2. Acute gallstone pancreatitis./ Necrosis. s/p Exploratory laparotomy, pancreatic necrosectomy, cholecystostomy tube placement, Gastrostomy placement with jejunal extension, tracheostomy placement (specifically 8 shiley cuffed) 06/21 3. Acute kidney failure. improving 4. Metabolic toxic encephalopathy. 5. Hyperkalemia.corrected 6. Metabolic / respiratory acidosis 7. Hypocalcemia. 8. POSSIBLE ABD COMPARTMENT SYNDROME , s/p Exp lap 9. HEP B S POSITIVE 10. Hypernatremia, resolved 11. LLL small effusion, monitor 12. FEVER PER ID 13. Occlusive thrombus within the cephalic vein no DVT on ultrasound ri Plan . With ongoing fever and worsening cxr (prior CT showed effusion and infiltrate) will repeat CT. Discussed with Dr. Mcpherson, IR, who will review and tap if fluid increased and leave drain if purulent. Continue current antibiotics per ID Continue assist control ventilation. I would not attempt weaning mech ventilation until more stable. Follow surgery input Case discussed with RN CCM time reviewing chart, examining patient, reviewing xrays, discussing with IR and determining care 40 min. WANDA COOPER MD Jul 11, 2019 10:57
[2019-07-11] MEDS: DAPTOmycin (GENERIC) IVPB 520 MG in IV NORMAL SALINE 50ML 50 ML IV SCH (11:01)
[2019-07-11 11:12] LABS: FIO2 ABG 40%
--- NOTE | 2019-07-11 11:19 | PDOC ---
[facility] PROGRESS NOTE Chief Complaint Chief Complaint Severe pancreatitis with the following surgery: Exploratory laparotomy, pancreatic necrosectomy, cholecystostomy tube placement, Gastrostomy placement with jejunal extension, tracheostomy placement (specifically 8 shiley cuffed) Acute hypoxemic respiratory failure, multifactorial. Status post tracheostomy 5 drains Acute gallstone pancreatitis./ Necrosis Acute kidney failure. improving Metabolic toxic encephalopathy. Hyperkalemia.corrected Metabolic / respiratory acidosis Hypocalcemia. Hepatitis B Hypernatremia LLL small effusion, monitor History of Present Illness History of Present Illness [id number] Patient seen and examined in the ICU Currently getting a sponge bath Got a great view of his abdomen He has a total of 7 different drains and/or catheters Still mechanically ventilated Off of pressors Sedated Periodically can open his eyes Still very critically ill Chart reviewed Discussed with RNs [id number] Patient seen and examined in the intensive care unit He remains mechanically ventilated Before meals//40% Extremely critically ill He has 4 or 5 drains in including GJ tube Discussed with RN Chart reviewed [id number] Patient seen and examined in the ICU He is still mechanically ventilated assist-control/ with 40% Chart reviewed Discussed with RN He remains very critically ill [id number] Patient seen and examined in the ICU Discussed with general surgeon and he examined the patient with me Patient's is present in his good support for him Currently still intubated and on the vent He is on assist control with 40% oxygen Remains very critically ill Mr Mata is a 49 yo M admitted with severe epigastric pain beginning in the morning of admission. Ultimately diagnosed with gallstone pancreatitis. Hemodialysis catheter placed for renal failure. Arterial blood gas revealed a pH of 7.30, PaCO2 of 31, PaO2 of 75, bicarb was 15. Consulted ID, GI, General surgery, nephrology, pulmonology 06/21: Ex-lap with pancreatic necrosectomy, cholecystectomy, gastrostomy tube lpac ement, tracheostomy placement. 06/22 - 06/26: Has 5 abdominal drains plus a Lobato and an NG to suction, intubated, sedated, paralyzed 06/28- 07/02: remain on micafungin, TPN. Trached on vent, sedated, 40% FiO2 07/03: His dialysis catheter and central line were removed. Ventilated via trach and sedated 07/04: Sedated on precedex. ABG reviewed, stable. Vitals stable, drains stable, still requiring ventilation on trach. Hb 7.6. TAG 1170 changed from propofol to versed for sedation 07/06 reposition G-tube. Overnight sedated. Still febrile. More comfortable on versed for sedation. Hb 7, 1u PRBC ordered. plan: Trend CBC Vitals/I&O Vitals/I&O: Vital Signs Date Time Temp Pulse Resp B/P (MAP) Pulse Ox O2 Delivery O2 Flow Rate FiO2 07/11/19 09:12 100 3.0 07/11/19 08:00 100.4 80 20 103/62 (76) Ventilator 100.4 I & O 07/10/19 07/10/19 07/11/19 15:00 23:00 07:00 Intake Total 350 ml 2861.5 ml 1365.8 ml Output Total 1075 ml 1575 ml 1065 ml Balance -725 ml 1286.5 ml 300.8 ml Physical Exam Physical Exam: GENERAL: Sedated, trached/vent - appears very comfortable HEENT: Pupils equal reactive - mild icteric NECK: Trach/ no JVD LUNGS: Diminished aeration bases HEART: S1, S2, regular, no murmurs. ABDOMEN: Distended, fairly tight still, bowel sounds quiet, drains x5, wound vac in place : Lobato in place 2 plus edema EXTREMITIES: 1+ - 2 edema, no cyanosis. SCDs bilaterally SKIN: Warm, dry. 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 [employer]: Sedated Left IJ 07/06- clean.Previous RT PICC line clean stie (07/01) - clean General: Other (eyes open, on sedation ) Heart: Regular rate, Normal S1, Normal S2, No murmurs, Gallops Lungs: Other (decrease bs) Abdomen: Other (abd is softer ) Extremities: No clubbing, No cyanosis, No edema, Normal pulses, No tenderness/swelling Skin: No significant lesion Labs Labs: Laboratory Tests Test 07/10/19 14:57 07/10/19 16:45 07/10/19 23:53 07/11/19 05:24 Glucose (Fingerstick) 130 mg/dL (70-99) 119 mg/dL (70-99) 156 mg/dL (70-99) 130 mg/dL (70-99) Test 07/11/19 05:30 07/11/19 06:00 07/11/19 08:00 07/11/19 09:48 Phosphorus Level 2.8 mg/dL (2.6-4.7) Magnesium Level 1.8 mg/dL (1.8-2.4) White Blood Count 11.7 x10^3/uL (4.0-11.0) Red Blood Count 2.62 x10^6/uL (4.30-5.70) Hemoglobin 7.5 g/dL (13.0-17.5) Hematocrit 23.7 % (39.0-53.0) Mean Corpuscular Volume 91 fL (79-100) Mean Corpuscular Hemoglobin 29 pg (25-35) Mean Corpuscular Hemoglobin Concent 32 g/dL (31-37) Red Cell Distribution Width 15.2 % (11.5-14.5) Platelet Count 356 x10^3/uL (140-400) Neutrophils (%) (Auto) 81 % (31-73) Lymphocytes (%) (Auto) 9 % (24-48) Monocytes (%) (Auto) 8 % (0-9) Eosinophils (%) (Auto) 1 % (0-3) Basophils (%) (Auto) 1 % (0-3) Neutrophils # (Auto) 9.5 x10^3/uL (1.8-7.7) Lymphocytes # (Auto) 1.1 x10^3/uL (1.0-4.8) Monocytes # (Auto) 0.9 x10^3/uL (0.0-1.1) Eosinophils # (Auto) 0.1 x10^3/uL (0.0-0.7) Basophils # (Auto) 0.1 x10^3/uL (0.0-0.2) Sodium Level 146 mmol/L (136-145) Potassium Level 3.7 mmol/L (3.5-5.1) Chloride Level 112 mmol/L (98-107) Carbon Dioxide Level 26 mmol/L (21-32) Anion Gap 8 (6-14) Blood Urea Nitrogen 29 mg/dL (8-26) Creatinine 0.9 mg/dL (0.7-1.3) Estimated GFR (Cockcroft-Gault) 108.5 BUN/Creatinine Ratio 32 (6-20) Glucose Level 141 mg/dL (70-99) Calcium Level 8.1 mg/dL (8.5-10.1) Total Bilirubin 3.5 mg/dL (0.2-1.0) Aspartate Amino Transf (AST/SGOT) 46 U/L (15-37) Alanine Aminotransferase (ALT/SGPT) 48 U/L (16-63) Alkaline Phosphatase 213 U/L (46-116) Total Protein 6.2 g/dL (6.4-8.2) Albumin 1.0 g/dL (3.4-5.0) Albumin/Globulin Ratio 0.2 (1.0-1.7) O2 Saturation 97 % (92-99) Arterial Blood pH 7.38 (7.35-7.45) Arterial Blood pCO2 at Patient Temp 42 mmHg (35-46) Arterial Blood pO2 at Patient Temp 104 mmHg (75-108) Arterial Blood HCO3 24 mmol/L (21-28) Arterial Blood Base Excess -1 mmol/L (-3-3) FiO2 40% Glucose (Fingerstick) 131 mg/dL (70-99) Review of Systems Review of Systems: Unable to obtain he is intubated Assessment and Plan Assessmemt and Plan Problems Medical Problems: (1) Acute pancreatitis Status: Acute (2) Nausea & vomiting Status: Acute Severe pancreatitis with the following surgery: Exploratory laparotomy, pancreatic necrosectomy, cholecystostomy tube placement, Gastrostomy placement with jejunal extension, tracheostomy placement (specifically 8 shiley cuffed) Acute hypoxemic respiratory failure, multifactorial. Status post tracheostomy 5 drains Acute gallstone pancreatitis./ Necrosis Acute kidney failure. improving Metabolic toxic encephalopathy. Hyperkalemia.corrected Metabolic / respiratory acidosis Hypocalcemia. Hepatitis B Hypernatremia LLL small effusion, monitor Plan: Continue ICU monitoring Continue to monitor intraabdominal pressures IV micafungin GEN IV insulin DVT prophylaxis We have a GJ tube and hope to begin feedings into the jejunum eventually For now continue TPN I discussed with case management he has been accepted at the LTAC Dr. Smyth would like to wait till next week for the LTAC and I agree Appreciate subspecialist input Vent weaning if possible IV antibiotics IV paralytics and IV sedatives Trend labs Wound care We are managing 5 abdominal drains He remains critically ill Prognosis extremely guarded Total time 32 minutes Comment Review of Relevant I have reviewed the following items alexandra (where applicable) has been applied. Medications: Current Medications Medications (Trade) Dose Ordered Sig/Jesse Route PRN Reason Start Time Stop Time Status Last Admin Dose Admin Potassium Acetate 15 meq/Potassium Phosphate 15 mmol/ Magnesium Sulfate 10 meq/Calcium Gluconate 10 meq/ Multivitamins 10 ml/Chromium/ Copper/Manganese/ Seleni/Zn 0.5 ml/ Total Parenteral Nutrition/Amino Acids/Dextrose/ Fat Emulsion Intravenous 1,920 ml @ 80 mls/hr TPN CONT IV 07/10/19 22:00 07/11/19 21:59 07/10/19 21:48 Hemodynamically unstable?: No Is patient in severe pain?: No Is NPO status required?: Yes JUSTIN WORKMAN III DO Jul 11, 2019 11:19
[2019-07-11] MEDS: TPN PER PHARMACY MC PRN (13:23)
--- NOTE | 2019-07-11 13:23 | NUR ---
Pharmacy TPN Dosing Note S: CHRISTOPHER NEWSOME is a 49 year old M Currently receiving Central Continuous TPN started 06/19/19 B:Pertinent PMH: PANCREATITIS Height: 5 feet, 9 inches Weight: 108.5 kg Current diet: NPO LABS: Sodium: 146 Potassium: 3.7 Chloride: 112 Calcium: 8.1 Corrected Calcium: 10.50 Magnesium: 1.8 CO2: 26 SCr: 0.9 Glucose: 141, 131 Albumin: 1.0 AST: 46 ALT: 48 TPN FORMULA: TPN TYPE: Central Continuous AMINO ACIDS: 145 gm DEXTROSE: 285 gm LIPIDS: 20 gm POTASSIUM ACETATE: 15 mEq POTASSIUM PHOSPHATE: 15 mmol MAGNESIUM: 10 mEq CALCIUM: 10 mEq MULTIPLE VITAMIN: 10 ml TRACE ELEMENTS: 0.5 ml TPN PLAN: -Electrolytes WNL and stable, no changes in TPN. -No labs needed tomorrow due to TPN stability. R: Continue TPN with no changes. Will monitor electrolytes, glucose, and tolerance to TPN. JESE HAGEN [facility], 07/11/19 [id number]
[2019-07-11] MEDS ORDERED: LIDOCAINE WITH 8.4% SOD BICARB 3 ML DISP.SYRIN. ONE (13:56)
[2019-07-11] MEDS ORDERED: LIDOCAINE WITH 8.4% SOD BICARB 3 ML DISP.SYRIN. INJ ONE (14:00)
--- NOTE | 2019-07-11 15:32 | RAD ---
CHEST AP ONLY History: Postthoracentesis Comparison: July 10, 2019 Findings: Low lung volumes. Small left pleural effusion status post thoracentesis. No pneumothorax. Patchy bibasilar opacities increased within the right upper lung likely due to decreasing lung volumes. Stable tracheostomy tube left IJ central line. Unchanged heart size. Pain noted projecting over the upper right abdomen. Impression: 1. Low lung volumes with increased patchy opacity may relate to worsening atelectasis. 2. Small left pleural effusion status post thoracentesis. No pneumothorax. Electronically signed by: Khurram Faust DO (07/11/2019 3:29 PM) [id number]
[2019-07-11] MEDS: IV NORMAL SALINE 1000ML BAG 1,000 ML IV SCH (15:39)
[2019-07-11 16:17] LABS: BF CLARITY CLOUDY; BF COLOR YELLOW; BF MON % 46 %; BF PMN % 54 %; BF RBC COUNT 14141 /cmm (Not Established); BF SOURCE PLEURAL; BF WBC COUNT 1580 /cmm (Not Established); PH,BODY FLUID 7.34
--- NOTE | 2019-07-11 16:29 | RAD ---
CT chest and abdomen without contrast: Reason for examination: Worsening appearance to the x-ray with lung opacities and pleural effusion. Comparison is made to previous CT examinations of the chest and abdomen dated 07/04/2019 and 06/22/2019. Helical images were obtained through the chest and abdomen with no intravenous contrast administered. Reconstruction was performed in sagittal and coronal planes. Exposure: One or more of the following individualized dose reduction techniques were utilized for this examination: 1. Automated exposure control 2. Adjustment of the mA and/or kV according to patient size 3. Use of iterative reconstruction technique. Endotracheal tube remains present. No focal lesions are seen within the trachea or mainstem bronchi. No abnormality seen at the thyroid gland. The esophagus shows no focal abnormality. The thoracic aorta is normal in caliber and course. There are small lymph nodes in the mediastinum which are similar to previous exam. The lung ventura show some consolidated infiltrates with air bronchograms in the posterior medial right lower lobe which show minimal change. The left lung field shows a moderate left pleural effusion with some atelectasis or infiltrate at the posterior left lung base. No pneumothorax is seen. No acute bony abnormality seen in the thorax. No abnormality seen at the liver, spleen or adrenal glands. The abdominal aorta appears be normal in course and caliber. No gross abnormality seen at the inferior vena cava. Cholecystostomy tube remains present with collapse of the gallbladder. No gallstones are evident. Gastrostomy tube is present with the balloon in the stomach and the tube tip appearing to lie in the gastric antral region. Drainage tubes remain present in the upper abdomen with no large fluid collections seen but there is still some free fluid present in the abdomen at the colic gutters and in the central mesentery. The pancreas still appears to be enlarged and edematous with poor delineation of the margins with inflammatory changes in the mesentery. This does appear to be slightly improved when compared to previous. The kidneys show no renal masses, renal calculi or evidence of hydronephrosis or obstructive uropathy. There also continues to be focal soft tissue density in the anterior cardiac fat pad appears be slightly more prominent than on previous exam and may represent focal inflammatory process. Evaluation of the intestinal tract is limited but no gross intestinal abnormality is seen. IMPRESSION: Infiltrates with air bronchograms posterior medially at the right lung base without change. Moderate left pleural effusion with atelectasis or infiltrate at the left lung base without significant change. Continued presence of an enlarged edematous pancreas with inflammatory changes in the mesentery consistent with history of necrotic pancreatitis and showing some mild improvement. Continued presence of drainage tubes in the upper abdomen with no significant fluid collections surrounding the tips of these tubes. There is however still some free fluid present in the abdomen abdomen. Soft tissue process anteriorly within the cardiac fat pad which appears slightly more prominent than on previous examination and may reflect an inflammatory process. Electronically signed by: Marleny Waldron MD (07/11/2019 4:26 PM) [id number]
[2019-07-11] MEDS ORDERED: DEXTROSE 70% IV SCH ×9 (22:00)
[2019-07-11] MEDS ORDERED: TOTAL PARENTERAL NUTRITION IV SCH ×9 (22:00)
[2019-07-11] MEDS ORDERED: AMINO ACID IV SCH ×9 (22:00)
[2019-07-11] MEDS ORDERED: [UNRECOGNIZED DRUG - OTHER] IV SCH ×9 (22:00)
[2019-07-12] VITALS (23 sets, daily range): BP systolic 93–134; BP diastolic 53–88
[2019-07-12] MEDS: DEXMEDETOMIDINE 400 MCG in IV NORMAL SALINE 100ML 96 ML IV PRN ×7 (00:59→21:35)
[2019-07-12] MEDS: MIDAZOLAM HCL 50 MG in IV NORMAL SALINE 50ML 50 ML IV PRN ×4 (05:02→18:09)
[2019-07-12] MEDS: PANTOPRAZOLE IV PUSH 40 MG VIAL. IVP SCH ×2 (05:41→17:33)
[2019-07-12] MEDS: ENOXAPARIN 40 MG/0.4 ML SYRINGE. SQ SCH (05:41)
[2019-07-12] MEDS: CEFEPIME HCL IV Push 2 GM VIAL. IVP SCH ×3 (05:41→21:36)
[2019-07-12] MEDS: INSULIN LISPRO 300 UNITS/3 ML VIAL. SQ SCH ×4 (05:49→17:33)
[2019-07-12 05:59] LABS: CREATININE 0.9 mg/dL (0.7-1.3); GFR 108.5; POTASSIUM 3.8 mmol/L (3.5-5.1)
[2019-07-12 06:13] LABS: BASO % 1 % (0-3); EOS # 0.1 x10^3/uL (0.0-0.7); EOS % 1 % (0-3); HEMOGLOBIN 7.4 g/dL (13.0-17.5); LYMPH # 1.4 x10^3/uL (1.0-4.8); LYMPH % 16 % (24-48); MEAN CORPUSCULAR HEMOGLOBIN 29 pg (25-35); MEAN CORPUSCULAR HGB CONC 32 g/dL (31-37); MEAN CORPUSCULAR VOLUME 91 fL (79-100); MONO # 0.8 x10^3/uL (0.0-1.1); MONO % 9 % (0-9); NEUT # 6.7 x10^3/uL (1.8-7.7); NEUT % 74 % (31-73); PLATELET COUNT 254 x10^3/uL (140-400); RED BLOOD COUNT 2.55 x10^6/uL (4.30-5.70); RED CELL DISTRIBUTION WIDTH 15.3 % (11.5-14.5); WHITE BLOOD COUNT 9.1 x10^3/uL (4.0-11.0)
[2019-07-12] MEDS: fentaNYL HIGH DOSE PCA 55 ML IV PRN (06:21)
[2019-07-12] MEDS: ALBUTEROL SULFATE 2.5 MG/3 ML NEBU. NEB SCH ×4 (08:00→21:00)
[2019-07-12] MEDS: FUROSEMIDE 40 MG/4 ML VIAL. IVP SCH (08:29)
[2019-07-12] MEDS: INSULIN GLARGINE SYRINGE. SQ SCH ×2 (08:30→21:34)
[2019-07-12 09:09] LABS: BASE EXCESS ABG 0 mmol/L (-3-3); HCO3 ABG 25 mmol/L (21-28); PCO2 ABG 41 mmHg (35-46); PO2 ABG 106 mmHg (75-108); SAT O2 ABG 97 % (92-99)
[2019-07-12 09:18] LABS: FIO2 ABG 40
[2019-07-12] MEDS: DAPTOmycin (GENERIC) IVPB 520 MG in IV NORMAL SALINE 50ML 50 ML IV SCH (09:32)
--- NOTE | 2019-07-12 09:49 | PDOC ---
Infectious Disease Note Subjective Subjective s/p thoracentsis, 07/10 Trach/vent FiO2 40% Sedated TPN No fevers last 24 hrs ROS ROS unobtainable Vital Sign Vital Signs Vital Signs Date Time Temp Pulse Resp B/P (MAP) Pulse Ox O2 Delivery O2 Flow Rate FiO2 07/12/19 09:00 97 20 124/77 (93) 100 Ventilator 07/12/19 08:00 101.2 101.2 07/11/19 09:42 3.0 Physical Exam PHYSICAL EXAM GENERAL: Sedated, trached/vent, HEENT: Pupils equal reactive - mild icteric NECK: Trach/ no JVD LUNGS: Diminished aeration bases HEART: S1, S2, regular ABDOMEN: Distended, fairly tight still, bowel sounds quiet, drains x5, wound vac in place : [place] in place 2 plus edema EXTREMITIES: 1+ - 2 edema, no cyanosis. SCDs bilaterally SKIN: Warm, moist. 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 [employer]: Sedated Left IJ 07/06- clean. Labs Lab Laboratory Tests Test 07/11/19 09:48 07/11/19 14:10 07/11/19 21:40 07/12/19 00:00 Glucose (Fingerstick) 131 mg/dL (70-99) 123 mg/dL (70-99) 139 mg/dL (70-99) Body Fluid Source Pleural Body Fluid Color Yellow Body Fluid Clarity Cloudy Body Fluid pH 7.34 Body Fluid Nucleated Cells 1580 /cmm (Not Established) Body Fluid Mononuclear WBCs (%) 46 % Body Fluid Polymorphonuclear Cells 54 % Body Fluid Total RBCs Counted 67926 /cmm (Not Test 07/12/19 05:30 07/12/19 05:48 07/12/19 08:00 White Blood Count 9.1 x10^3/uL (4.0-11.0) Red Blood Count 2.55 x10^6/uL (4.30-5.70) Hemoglobin 7.4 g/dL (13.0-17.5) Hematocrit 23.0 % (39.0-53.0) Mean Corpuscular Volume 91 fL (79-100) Mean Corpuscular Hemoglobin 29 pg (25-35) Mean Corpuscular Hemoglobin Concent 32 g/dL (31-37) Red Cell Distribution Width 15.3 % (11.5-14.5) Platelet Count 254 x10^3/uL (140-400) Neutrophils (%) (Auto) 74 % (31-73) Lymphocytes (%) (Auto) 16 % (24-48) Monocytes (%) (Auto) 9 % (0-9) Eosinophils (%) (Auto) 1 % (0-3) Basophils (%) (Auto) 1 % (0-3) Neutrophils # (Auto) 6.7 x10^3/uL (1.8-7.7) Lymphocytes # (Auto) 1.4 x10^3/uL (1.0-4.8) Monocytes # (Auto) 0.8 x10^3/uL (0.0-1.1) Eosinophils # (Auto) 0.1 x10^3/uL (0.0-0.7) Basophils # (Auto) 0.0 x10^3/uL (0.0-0.2) Sodium Level 145 mmol/L (136-145) Potassium Level 3.8 mmol/L (3.5-5.1) Chloride Level 112 mmol/L (98-107) Carbon Dioxide Level 27 mmol/L (21-32) Anion Gap 6 (6-14) Blood Urea Nitrogen 27 mg/dL (8-26) Creatinine 0.9 mg/dL (0.7-1.3) Estimated GFR (Cockcroft-Gault) 108.5 Glucose Level 118 mg/dL (70-99) Calcium Level 8.0 mg/dL (8.5-10.1) Glucose (Fingerstick) 108 mg/dL (70-99) O2 Saturation 97 % (92-99) Arterial Blood pH 7.40 (7.35-7.45) Arterial Blood pCO2 at Patient Temp 41 mmHg (35-46) Arterial Blood pO2 at Patient Temp 106 mmHg (75-108) Arterial Blood HCO3 25 mmol/L (21-28) Arterial Blood Base Excess 0 mmol/L (-3-3) FiO2 40 Micro /20. BLOOD CULTURE Preliminary NO GROWTH AFTER 2 DAYS SPUTUM CULT RES 1 Final Yeast isolated. Objective Assessment Fever - better ? ileus/pancreatitis/abd distension/pleural effusion/occlusive clot in cephalic - blood cults 07/05 - neg - lines chg'd 07/06 LIJ Leukocytosis - better - ? reactive given procedure 07/06, better Left pleural effusion s/p thoracentesis, 07/10 - PH 7.34, nucleated cells 1580, RBC 11836. glu, TP, LDH and cultures pending Gallbladder stone pancreatitis s/p expl lap, pancreatic necrosectomy, cholecystostomy tube placement, G-tube placement with jejunal extension, 06/21 -gastrostomy tube repositioned by IR 07/03; s/p Jejunostomy placement 07/06 per nursing, no report Intra-abd fluid collections Sepsis from GI - cult neg Acute Resp failure - s/p trach 06/21, vent dependent Lactic acidosis. Acute kidney injury previously requiring dialysis - now with improved UOP, HDC now out Metabolic acidosis. Hypocalcemia Right arm swelling, + occlusive thrombosis within the cephalic vein, no DVT on US Yeast in sputum from 07/03 likely represents colonization - was on antifungal when collected Anemia s/p PRBCs 07/05 Plan Plan of Care Continue dapto, cefepime/Flagyl (07/05) and Zyvox (for lung penetration) Consider Repeat CT scan Abd/pel Cultures neg Maintain aspiration precaution. Gen surgery following D/w nursing Critically ill Attending Co-Sign The patient was seen and interviewed as well as examined at the bedside. The chart was reviewed. The case was discussed. Agree with the plan of care. TANVI GORE APRN Jul 12, 2019 09:49 KRISTIAN GOODMAN MD Jul 12, 2019 12:04
--- NOTE | 2019-07-12 11:13 | PDOC ---
PROGRESS NOTES Subjective Subjective on vent Objective Objective Vital Signs Date Time Temp Pulse Resp B/P (MAP) Pulse Ox O2 Delivery O2 Flow Rate FiO2 07/12/19 11:00 87 20 95/59 (71) 100 Ventilator 07/12/19 08:00 101.2 101.2 07/11/19 09:42 3.0 Intake and Output 07/12/19 07:00 Intake Total 2872 ml Output Total 4995 ml Balance -2123 ml IV Total 2872 ml Output Urine Total 3725 ml Drainage Total 730 ml Other 540 ml Physical Exam Physical Exam abdomen distended, multiple drains in place as before Assessment Assessment Problems Medical Problems: (1) Acute pancreatitis Status: Acute (2) Nausea & vomiting Status: Acute Plan Plan of Care Supportive care, no new surgical recs Comment Review of Relevant I have reviewed the following items alexandra (where applicable) has been applied. Labs Laboratory Tests Test 07/10/19 14:57 07/10/19 16:45 07/10/19 23:53 07/11/19 05:24 Glucose (Fingerstick) 130 mg/dL (70-99) 119 mg/dL (70-99) 156 mg/dL (70-99) 130 mg/dL (70-99) Test 07/11/19 05:30 07/11/19 06:00 07/11/19 08:00 07/11/19 09:48 Phosphorus Level 2.8 mg/dL (2.6-4.7) Magnesium Level 1.8 mg/dL (1.8-2.4) White Blood Count 11.7 x10^3/uL (4.0-11.0) Red Blood Count 2.62 x10^6/uL (4.30-5.70) Hemoglobin 7.5 g/dL (13.0-17.5) Hematocrit 23.7 % (39.0-53.0) Mean Corpuscular Volume 91 fL (79-100) Mean Corpuscular Hemoglobin 29 pg (25-35) Mean Corpuscular Hemoglobin Concent 32 g/dL (31-37) Red Cell Distribution Width 15.2 % (11.5-14.5) Platelet Count 356 x10^3/uL (140-400) Neutrophils (%) (Auto) 81 % (31-73) Lymphocytes (%) (Auto) 9 % (24-48) Monocytes (%) (Auto) 8 % (0-9) Eosinophils (%) (Auto) 1 % (0-3) Basophils (%) (Auto) 1 % (0-3) Neutrophils # (Auto) 9.5 x10^3/uL (1.8-7.7) Lymphocytes # (Auto) 1.1 x10^3/uL (1.0-4.8) Monocytes # (Auto) 0.9 x10^3/uL (0.0-1.1) Eosinophils # (Auto) 0.1 x10^3/uL (0.0-0.7) Basophils # (Auto) 0.1 x10^3/uL (0.0-0.2) Sodium Level 146 mmol/L (136-145) Potassium Level 3.7 mmol/L (3.5-5.1) Chloride Level 112 mmol/L (98-107) Carbon Dioxide Level 26 mmol/L (21-32) Anion Gap 8 (6-14) Blood Urea Nitrogen 29 mg/dL (8-26) Creatinine 0.9 mg/dL (0.7-1.3) Estimated GFR (Cockcroft-Gault) 108.5 BUN/Creatinine Ratio 32 (6-20) Glucose Level 141 mg/dL (70-99) Calcium Level 8.1 mg/dL (8.5-10.1) Total Bilirubin 3.5 mg/dL (0.2-1.0) Aspartate Amino Transf (AST/SGOT) 46 U/L (15-37) Alanine Aminotransferase (ALT/SGPT) 48 U/L (16-63) Alkaline Phosphatase 213 U/L (46-116) Total Protein 6.2 g/dL (6.4-8.2) Albumin 1.0 g/dL (3.4-5.0) Albumin/Globulin Ratio 0.2 (1.0-1.7) O2 Saturation 97 % (92-99) Arterial Blood pH 7.38 (7.35-7.45) Arterial Blood pCO2 at Patient Temp 42 mmHg (35-46) Arterial Blood pO2 at Patient Temp 104 mmHg (75-108) Arterial Blood HCO3 24 mmol/L (21-28) Arterial Blood Base Excess -1 mmol/L (-3-3) FiO2 40% Glucose (Fingerstick) 131 mg/dL (70-99) Test 07/11/19 14:10 07/11/19 21:40 07/12/19 00:00 07/12/19 05:30 Body Fluid Source Pleural Body Fluid Color Yellow Body Fluid Clarity Cloudy Body Fluid pH 7.34 Body Fluid Nucleated Cells 1580 /cmm (Not Established) Body Fluid Mononuclear WBCs (%) 46 % Body Fluid Polymorphonuclear Cells 54 % Body Fluid Total RBCs Counted 20891 /cmm (Not Glucose (Fingerstick) 123 mg/dL (70-99) 139 mg/dL (70-99) White Blood Count 9.1 x10^3/uL (4.0-11.0) Red Blood Count 2.55 x10^6/uL (4.30-5.70) Hemoglobin 7.4 g/dL (13.0-17.5) Hematocrit 23.0 % (39.0-53.0) Mean Corpuscular Volume 91 fL (79-100) Mean Corpuscular Hemoglobin 29 pg (25-35) Mean Corpuscular Hemoglobin Concent 32 g/dL (31-37) Red Cell Distribution Width 15.3 % (11.5-14.5) Platelet Count 254 x10^3/uL (140-400) Neutrophils (%) (Auto) 74 % (31-73) Lymphocytes (%) (Auto) 16 % (24-48) Monocytes (%) (Auto) 9 % (0-9) Eosinophils (%) (Auto) 1 % (0-3) Basophils (%) (Auto) 1 % (0-3) Neutrophils # (Auto) 6.7 x10^3/uL (1.8-7.7) Lymphocytes # (Auto) 1.4 x10^3/uL (1.0-4.8) Monocytes # (Auto) 0.8 x10^3/uL (0.0-1.1) Eosinophils # (Auto) 0.1 x10^3/uL (0.0-0.7) Basophils # (Auto) 0.0 x10^3/uL (0.0-0.2) Sodium Level 145 mmol/L (136-145) Potassium Level 3.8 mmol/L (3.5-5.1) Chloride Level 112 mmol/L (98-107) Carbon Dioxide Level 27 mmol/L (21-32) Anion Gap 6 (6-14) Blood Urea Nitrogen 27 mg/dL (8-26) Creatinine 0.9 mg/dL (0.7-1.3) Estimated GFR (Cockcroft-Gault) 108.5 Glucose Level 118 mg/dL (70-99) Calcium Level 8.0 mg/dL (8.5-10.1) Test 07/12/19 05:48 07/12/19 08:00 Glucose (Fingerstick) 108 mg/dL (70-99) O2 Saturation 97 % (92-99) Arterial Blood pH 7.40 (7.35-7.45) Arterial Blood pCO2 at Patient Temp 41 mmHg (35-46) Arterial Blood pO2 at Patient Temp 106 mmHg (75-108) Arterial Blood HCO3 25 mmol/L (21-28) Arterial Blood Base Excess 0 mmol/L (-3-3) FiO2 40 Laboratory Tests Test 07/11/19 14:10 07/11/19 21:40 07/12/19 00:00 07/12/19 05:30 Body Fluid Source Pleural Body Fluid Color Yellow Body Fluid Clarity Cloudy Body Fluid pH 7.34 Body Fluid Nucleated Cells 1580 /cmm (Not Established) Body Fluid Mononuclear WBCs (%) 46 % Body Fluid Polymorphonuclear Cells 54 % Body Fluid Total RBCs Counted 60160 /cmm (Not Glucose (Fingerstick) 123 mg/dL (70-99) 139 mg/dL (70-99) White Blood Count 9.1 x10^3/uL (4.0-11.0) Red Blood Count 2.55 x10^6/uL (4.30-5.70) Hemoglobin 7.4 g/dL (13.0-17.5) Hematocrit 23.0 % (39.0-53.0) Mean Corpuscular Volume 91 fL (79-100) Mean Corpuscular Hemoglobin 29 pg (25-35) Mean Corpuscular Hemoglobin Concent 32 g/dL (31-37) Red Cell Distribution Width 15.3 % (11.5-14.5) Platelet Count 254 x10^3/uL (140-400) Neutrophils (%) (Auto) 74 % (31-73) Lymphocytes (%) (Auto) 16 % (24-48) Monocytes (%) (Auto) 9 % (0-9) Eosinophils (%) (Auto) 1 % (0-3) Basophils (%) (Auto) 1 % (0-3) Neutrophils # (Auto) 6.7 x10^3/uL (1.8-7.7) Lymphocytes # (Auto) 1.4 x10^3/uL (1.0-4.8) Monocytes # (Auto) 0.8 x10^3/uL (0.0-1.1) Eosinophils # (Auto) 0.1 x10^3/uL (0.0-0.7) Basophils # (Auto) 0.0 x10^3/uL (0.0-0.2) Sodium Level 145 mmol/L (136-145) Potassium Level 3.8 mmol/L (3.5-5.1) Chloride Level 112 mmol/L (98-107) Carbon Dioxide Level 27 mmol/L (21-32) Anion Gap 6 (6-14) Blood Urea Nitrogen 27 mg/dL (8-26) Creatinine 0.9 mg/dL (0.7-1.3) Estimated GFR (Cockcroft-Gault) 108.5 Glucose Level 118 mg/dL (70-99) Calcium Level 8.0 mg/dL (8.5-10.1) Test 07/12/19 05:48 07/12/19 08:00 Glucose (Fingerstick) 108 mg/dL (70-99) O2 Saturation 97 % (92-99) Arterial Blood pH 7.40 (7.35-7.45) Arterial Blood pCO2 at Patient Temp 41 mmHg (35-46) Arterial Blood pO2 at Patient Temp 106 mmHg (75-108) Arterial Blood HCO3 25 mmol/L (21-28) Arterial Blood Base Excess 0 mmol/L (-3-3) FiO2 40 Microbiology 07/06/19 Blood Culture - Final, Complete NO GROWTH AFTER 5 DAYS 07/04/19 - Final, Complete 07/04/19 - Final, Complete 07/04/19 - Final, Complete 07/04/19 Gram Stain Evaluation - Final, Complete 07/04/19 Sputum Culture - Final, Complete 07/04/19 Sputum Result 1 - Final, Complete 07/03/19 Aerobic Culture - Final, Complete 07/03/19 Aerobic Culture Result 1 (CARINE) - Final, Complete 07/03/19 Gram Stain - Final, Complete 07/03/19 Gram Stain Result 1 (CARINE) - Final, Complete 07/03/19 Gram Stain Result 2 (CARINE) - Final, Complete 06/22/19 AFB Specimen Processing Tissue - Final, Resulted 06/22/19 Acid Fast Bacilli Culture, Resulted Pending 06/22/19 Gram Stain - Final, Resulted 06/22/19 Fungal Culture - Preliminary, Resulted 06/22/19 Fungal Culture Result 1 - Preliminary, Resulted Medications Current Medications Morphine Sulfate (Morphine Sulfate) 4 mg PRN Q15MIN PRN IV/SQ PAIN GREATER THAN 3/10 Last administered on 06/11/19at 04:58; Start 06/11/19 at 04:30; Stop 06/11/19 at 16:47; Status DC Sodium Chloride 1,000 ml @ 1,000 mls/hr Q1H IV Last administered on 06/11/19at 04:34; Start 06/11/19 at 04:30; Stop 06/11/19 at 05:29; Status DC Ondansetron HCl (Zofran) 4 mg 1X ONCE IV Last administered on 06/11/19at 04:33; Start 06/11/19 at 04:30; Stop 06/11/19 at 04:33; Status DC Iohexol (Omnipaque 350 Mg/ml) 100 ml 1X ONCE IV Last administered on 06/11/19at 05:01; Start 06/11/19 at 04:45; Stop 06/11/19 at 04:46; Status DC Info (CONTRAST GIVEN -- Rx MONITORING) 1 each PRN DAILY PRN MC SEE COMMENTS; Start 06/11/19 at 04:45; Stop 06/13/19 at 04:44; Status DC Fentanyl Citrate (Fentanyl 2ml Vial) 100 mcg STK-MED ONCE .ROUTE ; Start 06/11/19 at 04:42; Stop 06/11/19 at 04:42; Status DC Fentanyl Citrate (Fentanyl 2ml Vial) 50 mcg 1X ONCE IVP Last administered on 06/11/19at 04:45; Start 06/11/19 at 05:00; Stop 06/11/19 at 05:01; Status DC Ondansetron HCl (Zofran) 4 mg PRN Q8HRS PRN IV NAUSEA/VOMITING Last administered on 06/12/19at 03:29; Start 06/11/19 at 05:45; Stop 06/12/19 at 05:44; Status DC Morphine Sulfate (Morphine Sulfate) 4 mg PRN Q2HR PRN IV PAIN Last administered on 06/11/19at 07:37; Start 06/11/19 at 05:45; Stop 06/11/19 at 11:54; Status DC Sodium Chloride 1,000 ml @ 150 mls/hr Q6H40M IV Last administered on 06/12/19at 03:28; Start 06/11/19 at 05:45; Stop 06/12/19 at 11:01; Status DC Hydromorphone HCl (Dilaudid) 0.5 mg PRN Q3HRS PRN IV PAIN Last administered on 06/11/19at 08:38; Start 06/11/19 at 05:45; Stop 06/11/19 at 09:12; Status DC Potassium Chloride/Water 100 ml @ 100 mls/hr Q1H IV Last administered on 06/11/19at 08:41; Start 06/11/19 at 06:00; Stop 06/11/19 at 07:59; Status DC Hydromorphone HCl (Dilaudid) 1 mg PRN Q3HRS PRN IV PAIN Last administered on 06/11/19at 09:29; Start 06/11/19 at 09:15; Stop 06/11/19 at 11:54; Status DC Prochlorperazine Edisylate (Compazine) 10 mg PRN Q8HRS PRN IV NAUSEA/VOMITING, 2ND CHOICE Last administered on 06/12/19at 14:59; Start 06/11/19 at 12:00 Hydromorphone HCl (Dilaudid) 1 mg PRN Q2HRS PRN IV SEVERE PAIN Last administered on 06/29/19at 07:35; Start 06/11/19 at 12:00 Pantoprazole Sodium (PROTONIX VIAL for IV PUSH) 40 mg DAILYAC IVP Last administered on 06/12/19at 08:29; Start 06/11/19 at 15:00; Stop 06/12/19 at 16:23; Status DC Lorazepam (Ativan Inj) 1 mg PRN Q6HRS PRN IVP ANXIETY / AGITATION Last administered on 07/09/19at 22:00; Start 06/11/19 at 18:15 Hydralazine HCl (Apresoline Inj) 10 mg PRN Q6HRS PRN IVP ELEVATED BP, SEE COMMENTS Last administered on 06/18/19at 09:32; Start 06/11/19 at 18:15; Stop 06/21/19 at 09:12; Status DC Nystatin (Nystop) 1 devorah PRN QID PRN TP FUNGAL RASH Last administered on 06/11/19at 23:19; Start 06/11/19 at 23:15 Sodium Chloride 1,000 ml @ 1,000 mls/hr 1X ONCE IV Last administered on 06/12/19at 05:27; Start 06/12/19 at 06:00; Stop 06/12/19 at 06:59; Status DC Sodium Chloride 1,000 ml @ 1,000 mls/hr 1X ONCE IV Last administered on 06/12/19at 05:25; Start 06/12/19 at 05:00; Stop 06/12/19 at 05:59; Status DC Sodium Chloride 1,000 ml @ 200 mls/hr Q5H IV Last administered on 06/12/19at 06:36; Start 06/12/19 at 07:00; Stop 06/12/19 at 11:01; Status DC Sodium Bicarbonate 50 meq/Sodium Chloride 1,050 ml @ 150 mls/hr Q7H IV Last administered on 06/13/19at 04:16; Start 06/12/19 at 11:00; Stop 06/13/19 at 14:48; Status DC Amino Acids/ Glycerin/ Electrolytes 1,000 ml @ 80 mls/hr [id number] IV ; Start 06/12/19 at 10:00; Status UNV Amino Acids/ Electrolytes/ Dextrose 1,000 ml @ 80 mls/hr [id number] IV ; Start 06/12/19 at 10:15; Stop 06/18/19 at 13:50; Status DC Piperacillin Sod/ Tazobactam Sod (Zosyn Per Pharmacy) 1 each PRN DAILY PRN MC SEE COMMENTS; Start 06/12/19 at 13:15; Stop 06/12/19 at 19:16; Status DC Piperacillin Sod/ Tazobactam Sod 2.25 gm/Sodium Chloride 50 ml @ 100 mls/hr Q6HRS IV Last administered on 06/12/19at 13:48; Start 06/12/19 at 13:30; Stop 06/12/19 at 19:15; Status DC Sodium Bicarbonate (Sodium Bicarb Adult 8.4% Syr) 50 meq 1X ONCE IV Last administered on 06/12/19at 16:12; Start 06/12/19 at 16:00; Stop 06/12/19 at 16:01; Status DC Calcium Gluconate 1000 mg/Sodium Chloride 110 ml @ 220 mls/hr 1X ONCE IV Last administered on 06/12/19at 16:13; Start 06/12/19 at 16:00; Stop 06/12/19 at 16:29; Status DC Dextrose (Dextrose 50%-Water Syringe) 25 gm 1X ONCE IV Last administered on 06/12/19at 16:13; Start 06/12/19 at 16:00; Stop 06/12/19 at 16:01; Status DC Insulin Human Regular (HumuLIN R VIAL) 10 unit 1X ONCE IV Last administered on 06/12/19at 16:14; Start 06/12/19 at 16:00; Stop 06/12/19 at 16:01; Status DC Furosemide (Lasix) 40 mg 1X ONCE IVP Last administered on 06/12/19at 16:13; Start 06/12/19 at 16:00; Stop 06/12/19 at 16:01; Status DC Pantoprazole Sodium (PROTONIX VIAL for IV PUSH) 40 mg [id number] IVP Last administered on 06/13/19at 06:21; Start 06/12/19 at 18:00; Stop 06/13/19 at 18:49; Status DC Meropenem 500 mg/ Sodium Chloride 50 ml @ 100 mls/hr Q12HR IV Last administered on 06/17/19at 20:59; Start 06/12/19 at 21:00; Stop 06/18/19 at 07:26; Status DC Calcium Gluconate 1000 mg/Sodium Chloride 110 ml @ 220 mls/hr 1X ONCE IV Last administered on 06/12/19at 20:35; Start 06/12/19 at 19:15; Stop 06/12/19 at 19:44; Status DC Lidocaine HCl (Buffered Lidocaine 1%) 3 ml STK-MED ONCE .ROUTE ; Start 06/13/19 at 08:47; Stop 06/13/19 at 08:47; Status DC Lidocaine HCl (Buffered Lidocaine 1%) 6 ml 1X ONCE INJ Last administered on 06/13/19at 09:23; Start 06/13/19 at 09:30; Stop 06/13/19 at 09:31; Status DC Insulin Human Lispro (HumaLOG) 0-7 UNITS TIDWMEALS SQ Last administered on 06/13/19at 12:14; Start 06/13/19 at 12:00; Stop 06/14/19 at 23:29; Status DC Dextrose (Dextrose 50%-Water Syringe) 12.5 gm PRN Q15MIN PRN IV SEE COMMENTS; Start 06/13/19 at 11:15; Stop 06/14/19 at 23:29; Status DC Insulin Human Regular 100 unit/ Sodium Chloride 101 ml @ 0 mls/hr CONT PRN IV SEE I/O RECORD Last administered on 06/13/19at 15:03; Start 06/13/19 at 14:15; Stop 06/21/19 at 12:37; Status DC Sodium Chloride 1,000 ml @ 1,000 mls/hr Q1H PRN IV hypotension; Start 06/13/19 at 14:00; Stop 06/13/19 at 19:59; Status DC Sodium Chloride 1,000 ml @ 400 mls/hr Q2H30M PRN IV PATENCY; Start 06/13/19 at 14:00; Stop 06/14/19 at 01:59; Status DC Info (PHARMACY MONITORING -- do not chart) 1 each PRN DAILY PRN MC SEE COMMENTS; Start 06/13/19 at 14:45; Stop 06/13/19 at 14:51; Status DC Info (PHARMACY MONITORING -- do not chart) 1 each PRN DAILY PRN MC SEE COMMENTS; Start 06/13/19 at 14:45; Stop 06/27/19 at 12:33; Status DC Pantoprazole Sodium (PROTONIX VIAL for IV PUSH) 40 mg [id number] IVP Last administered on 07/12/19at 05:41; Start 06/13/19 at 21:00 Dexmedetomidine HCl 400 mcg/ Sodium Chloride 100 ml @ 0 mls/hr CONT PRN IV PER PROTOCOL Last administered on 06/21/19at 05:52; Start 06/13/19 at 19:00; Stop 06/21/19 at 19:39; Status DC Sodium Chloride 500 ml @ 500 mls/hr 1X PRN PRN IV SEE COMMENTS; Start 06/13/19 at 19:00; Stop 07/05/19 at 08:01; Status DC Atropine Sulfate (ATROPINE 0.5mg SYRINGE) 0.5 mg PRN Q5MIN PRN IV SEE COMMENTS; Start 06/13/19 at 19:00; Stop 06/27/19 at 12:28; Status DC Sodium Chloride 1,000 ml @ 1,000 mls/hr Q1H PRN IV hypotension; Start 06/14/19 at 08:55; Stop 06/14/19 at 14:54; Status DC Albumin Human 200 ml @ 200 mls/hr 1X PRN PRN IV Hypotension Last administered on 06/14/19at 09:40; Start 06/14/19 at 09:00; Stop 06/14/19 at 14:59; Status DC Sodium Chloride 1,000 ml @ 400 mls/hr Q2H30M PRN IV PATENCY; Start 06/14/19 at 08:55; Stop 06/14/19 at 20:54; Status DC Info (PHARMACY MONITORING -- do not chart) 1 each PRN DAILY PRN MC SEE COMMENTS; Start 06/14/19 at 09:00; Stop 06/14/19 at 09:06; Status DC Info (PHARMACY MONITORING -- do not chart) 1 each PRN DAILY PRN MC SEE COMMENTS; Start 06/14/19 at 09:00; Stop 06/14/19 at 09:06; Status DC Calcium Chloride 2000 mg/Sodium Chloride 120 ml @ 240 mls/hr PRN QID PRN IV for CALCIUM < 5.8 Last administered on 06/15/19at 08:32; Start 06/14/19 at 10:15; Stop 06/15/19 at 09:58; Status DC Magnesium Sulfate 50 ml @ 25 mls/hr PRN DAILY PRN IV for Mag < 1.7 on am labs; Start 06/14/19 at 10:30 Norepinephrine Bitartrate 8 mg/ Dextrose 258 ml @ 20.027 mls/ hr CONT PRN IV PER PROTOCOL Last administered on 06/14/19at 10:31; Start 06/14/19 at 10:30 Succinylcholine Chloride (Anectine) 200 mg STK-MED ONCE .ROUTE ; Start 06/14/19 at 12:22; Stop 06/14/19 at 12:23; Status DC Etomidate (Amidate) 20 mg STK-MED ONCE IV ; Start 06/14/19 at 12:22; Stop 06/14/19 at 12:23; Status DC Fentanyl Citrate 30 ml @ 0 mls/hr CONT PRN IV SEE PROTOCOL Last administered on 06/19/19at 08:10; Start 06/14/19 at 12:45; Stop 06/19/19 at 11:00; Status DC Chlorhexidine Gluconate (Peridex) 15 ml BID MM Last administered on 06/30/19at 20:47; Start 06/14/19 at 21:00; Stop 07/01/19 at 16:34; Status DC Midazolam HCl 50 mg/Sodium Chloride 50 ml @ 0 mls/hr CONT PRN IV SEE PROTOCOL Last administered on 07/12/19at 08:33; Start 06/14/19 at 12:45 Midazolam HCl (Versed) 5 mg STK-MED ONCE .ROUTE ; Start 06/14/19 at 12:48; Stop 06/14/19 at 12:48; Status DC Fentanyl Citrate (Fentanyl 2ml Vial) 100 mcg STK-MED ONCE .ROUTE ; Start 06/14/19 at 12:48; Stop 06/14/19 at 12:48; Status DC Midazolam HCl (Versed) 5 mg 1X ONCE IV Last administered on 06/14/19at 12:59; Start 06/14/19 at 13:00; Stop 06/14/19 at 13:01; Status DC Fentanyl Citrate (Fentanyl 2ml Vial) 100 mcg 1X ONCE IM Last administered on 06/14/19at 12:58; Start 06/14/19 at 13:00; Stop 06/14/19 at 13:01; Status DC Succinylcholine Chloride (Anectine) 200 mg 1X ONCE IV Last administered on 06/14/19at 12:59; Start 06/14/19 at 13:00; Stop 06/14/19 at 13:01; Status DC Etomidate (Amidate) 14 mg 1X ONCE IV Last administered on 06/14/19at 12:59; Start 06/14/19 at 13:00; Stop 06/14/19 at 13:01; Status DC Acetaminophen (Tylenol Supp) 650 mg PRN Q6HRS PRN UT MILD PAIN / TEMP Last a dministered on 07/10/19at 15:03; Start 06/14/19 at 20:00 Linezolid/Dextrose 300 ml @ 300 mls/hr Q12HR IV Last administered on 07/03/19at 08:34; Start 06/14/19 at 21:00; Stop 07/03/19 at 09:09; Status DC Insulin Human Lispro (HumaLOG) 0-7 UNITS TIDWMEALS SQ ; Start 06/15/19 at 08:00; Stop 06/15/19 at 00:03; Status DC Dextrose (Dextrose 50%-Water Syringe) 12.5 gm PRN Q15MIN PRN IV SEE COMMENTS; Start 06/14/19 at 23:30; Stop 07/03/19 at 10:41; Status DC Insulin Human Lispro (HumaLOG) 0-7 UNITS Q4HRS SQ Last administered on 06/23/19at 08:05; Start 06/15/19 at 00:15; Stop 07/01/19 at 16:41; Status DC Calcium Gluconate 84155 mg/Sodium Chloride 494 ml @ 4.051 mls/ hr CONT PRN IV SYMPTOMATIC HYPOCALCEMIA; Start 06/15/19 at 09:30; Stop 06/15/19 at 09:23; Status DC Calcium Gluconate 5000 mg/Sodium Chloride 260 ml @ 5.543 mls/ hr CONT PRN IV SYMPTOMATIC HYPOCALCEMIA; Start 06/15/19 at 09:30; Stop 06/15/19 at 09:26; Status DC Calcium Gluconate 5000 mg/Sodium Chloride 260 ml @ 5.543 mls/ hr CONT PRN IV SYMPTOMATIC HYPOCALCEMIA; Start 06/15/19 at 09:30; Stop 06/15/19 at 09:29; Status DC Calcium Gluconate 5000 mg/Sodium Chloride 250 ml @ 28.782 mls/ hr CONT PRN IV SYMPTOMATIC HYPOCALCEMIA Last administered on 06/18/19at 06:12; Start 06/15/19 at 09:30; Stop 06/18/19 at 13:50; Status DC Lidocaine HCl (Lidocaine Pf 2% Vial) 5 ml STK-MED ONCE .ROUTE ; Start 06/14/19 at 12:00; Stop 06/17/19 at 10:37; Status DC Meropenem 500 mg/ Sodium Chloride 50 ml @ 100 mls/hr Q6HRS IV Last administered on 07/06/19at 12:12; Start 06/18/19 at 07:30; Stop 07/06/19 at 15:00; Status DC Nicardipine HCl 50 mg/Sodium Chloride 250 ml @ 25 mls/hr CONT PRN IV SEE I/O RECORD; Start 06/18/19 at 11:45 Metoprolol Tartrate (Lopressor Vial) 5 mg 1X ONCE IVP ; Start 06/18/19 at 12:15; Stop 06/18/19 at 12:16; Status DC Fentanyl Citrate (Fentanyl 600 Mcg/30 ml HEAD BUYER TOBACCO) 600 mcg STK-MED ONCE IV ; Start 06/15/19 at 05:30; Stop 06/18/19 at 12:07; Status DC Enoxaparin Sodium (Lovenox 40mg Syringe) 40 mg Q24H SQ Last administered on 06/21/19at 23:02; Start 06/18/19 at 22:30; Stop 06/22/19 at 11:07; Status DC Fentanyl Citrate 55 ml @ 1.98 mls/hr CONT PRN IV SEE PROTOCOL; Start 06/19/19 at 08:15; Status Cancel Info (Tpn Per Pharmacy) 1 each PRN DAILY PRN MC SEE COMMENTS Last administered on 07/11/19at 13:23; Start 06/19/19 at 11:15 Hydralazine HCl (Apresoline Inj) 10 mg PRN Q4HRS PRN IVP ELEVATED BP, 1st choice Last administered on 06/26/19at 15:43; Start 06/19/19 at 11:45 Labetalol HCl (Normodyne Iv Push) 20 mg PRN Q2HR PRN IVP HYPERTENSION, 2nd choice Last administered on 06/26/19at 14:44; Start 06/19/19 at 11:45 Potassium Phosphate 13.6 mmol/Magnesium Sulfate 10 meq/ Calcium Gluconate 20 meq/ Multivitamins 10 ml/Chromium/ Copper/Manganese/ Seleni/Zn 0.5 ml/ Total Parenteral Nutrition/Amino Acids/Dextrose/ Fat Emulsion Intravenous 1,920 ml @ 80 mls/hr TPN CONT IV Last administered on 06/19/19at 21:31; Start 06/19/19 at 22:00; Stop 06/20/19 at 21:59; Status DC Fentanyl Citrate 30 ml @ 0 mls/hr CONT PRN IV SEE PROTOCOL Last administered on 06/24/19at 09:31; Start 06/19/19 at 18:00; Stop 06/24/19 at 11:38; Status DC Micafungin Sodium 100 mg/Dextrose 100 ml @ 100 mls/hr Q24H IV Last administered on 07/07/19at 08:19; Start 06/20/19 at 09:00; Stop 07/07/19 at 09:51; Status DC Potassium Phosphate 13.6 mmol/Calcium Gluconate 20 meq/ Multivitamins 10 ml/Chromium/ Copper/Manganese/ Seleni/Zn 0.5 ml/ Insulin Human Regular 10 unit/ Total Parenteral Nutrition/Amino Acids/Dextrose/ Fat Emulsion Intravenous 1,920 ml @ 80 mls/hr TPN CONT IV Last administered on 06/20/19at 21:57; Start 06/20/19 at 22:00; Stop 06/21/19 at 21:59; Status DC Insulin Glargine (Lantus Syringe) 15 unit QHS SQ Last administered on 06/20/19at 20:46; Start 06/20/19 at 21:00; Stop 06/21/19 at 12:32; Status DC Insulin Glargine (Lantus Syringe) 20 unit QHS SQ Last administered on 07/02/19at 20:46; Start 06/21/19 at 21:00; Stop 07/03/19 at 10:39; Status DC Potassium Phosphate 13.6 mmol/Calcium Gluconate 20 meq/ Multivitamins 10 ml/Chromium/ Copper/Manganese/ Seleni/Zn 0.5 ml/ Insulin Human Regular 10 unit/ Total Parenteral Nutrition/Amino Acids/Dextrose/ Fat Emulsion Intravenous 1,920 ml @ 80 mls/hr TPN CONT IV Last administered on 06/21/19 21:31; Start 06/21/19 at 22:00; Stop 06/22/19 at 21:59; Status DC Dextrose 1,000 ml @ 75 mls/hr [id number] IV Last administered on 06/27/19at 01:32; Start 06/22/19 at 07:00; Stop 06/27/19 at 12:43; Status DC Albuterol Sulfate (Ventolin Neb Soln) 2.5 mg RTQID NEB Last administered on 07/11/19at 20:20; Start 06/22/19 at 08:00 Iohexol (Omnipaque 240 Mg/ml) 30 ml 1X ONCE PO ; Start 06/22/19 at 08:00; Stop 06/22/19 at 08:05; Status DC Iohexol (Omnipaque 300 Mg/ml) 75 ml 1X ONCE IV ; Start 06/22/19 at 08:00; Stop 06/22/19 at 08:01; Status Cancel Info (CONTRAST GIVEN -- Rx MONITORING) 1 each PRN DAILY PRN MC SEE COMMENTS; Start 06/22/19 at 08:15; Stop 06/24/19 at 08:14; Status DC Cefoxitin Sodium (Mefoxin) 2 gm 1X PREOP IVP ; Start 06/22/19 at 11:00; Stop 06/22/19 at 11:16; Status DC Cefoxitin Sodium (Mefoxin) 2 gm 1X PREOP ONCE IVP Last administered on 06/22/19at 11:37; Start 06/22/19 at 11:30; Stop 06/22/19 at 11:31; Status DC Rocuronium [place] (Zemuron) 50 mg STK-MED ONCE .ROUTE ; Start 06/22/19 at 11:42; Stop 06/22/19 at 11:42; Status DC Propofol 20 ml @ As Directed STK-MED ONCE IV ; Start 06/22/19 at 11:42; Stop 06/22/19 at 11:43; Status DC Dexamethasone Sodium Phosphate (Decadron) 4 mg STK-MED ONCE .ROUTE ; Start 06/22/19 at 11:45; Stop 06/22/19 at 11:45; Status DC Ondansetron HCl (Zofran) 4 mg STK-MED ONCE .ROUTE ; Start 06/22/19 at 11:45; Stop 06/22/19 at 11:45; Status DC Potassium Phosphate 13.6 mmol/Magnesium Sulfate 5 meq/ Calcium Gluconate 20 meq/ Multivitamins 10 ml/Chromium/ Copper/Manganese/ Seleni/Zn 0.5 ml/ Total Parent eral Nutrition/Amino Acids/Dextrose/ Fat Emulsion Intravenous 1,920 ml @ 80 mls/hr TPN CONT IV Last administered on 06/22/19at 22:14; Start 06/22/19 at 22:00; Stop 06/23/19 at 21:59; Status DC Rocuronium [place] (Zemuron) 100 mg STK-MED ONCE .ROUTE ; Start 06/22/19 at 13:05; Stop 06/22/19 at 13:06; Status DC Cellulose (Surgicel Hemostat 4x8) 1 each STK-MED ONCE .ROUTE Last administered on 06/22/19at 12:46; Start 06/22/19 at 13:14; Stop 06/22/19 at 13:14; Status DC Albumin Human 500 ml @ As Directed STK-MED ONCE IV ; Start 06/22/19 at 13:25; Stop 06/22/19 at 13:25; Status DC Sevoflurane (Ultane) 90 ml STK-MED ONCE IH ; Start 06/22/19 at 13:53; Stop 06/22/19 at 13:53; Status DC Cellulose (Surgicel Hemostat 4x8) 1 each STK-MED ONCE TP Last administered on 06/22/19at 12:46; Start 06/22/19 at 12:46; Stop 06/22/19 at 14:25; Status DC Cellulose (Surgicel Hemostat 4x8) 1 each STK-MED ONCE TP Last administered on 06/22/19at 12:46; Start 06/22/19 at 12:46; Stop 06/22/19 at 14:25; Status DC Rocuronium [place] (Zemuron) 50 mg STK-MED ONCE .ROUTE ; Start 06/22/19 at 14:52; Stop 06/22/19 at 14:52; Status DC Vecuronium [place] 50 mg/ Miscellaneous 50 ml @ 4.925 mls/ hr CONT PRN IV SEE PROTOCOL Last administered on 06/25/19at 05:19; Start 06/22/19 at 15:00 Enoxaparin Sodium (Lovenox 40mg Syringe) 40 mg Q24H SQ Last administered on 07/12/19at 05:41; Start 06/23/19 at 06:00 Sodium Chloride (Normal Saline Flush) 3 ml QSHIFT PRN IV AFTER MEDS AND BLOOD DRAWS; Start 06/22/19 at 15:45 Ringer's Solution 1,000 ml @ 100 mls/hr Q10H IV Last administered on 06/23/19at 22:06; Start 06/22/19 at 15:39; Stop 06/24/19 at 17:46; Status DC Naloxone HCl (Narcan) 0.4 mg PRN Q2MIN PRN IV SEE INSTRUCTIONS; Start 06/22/19 at 15:45 Sodium Chloride 1,000 ml @ 25 mls/hr Q24H IV Last administered on 07/08/19at 20 :31; Start 06/22/19 at 15:39 Morphine Sulfate (Morphine Sulfate) 1 mg PRN Q1HR PRN IV MODERATE PAIN; Start 06/22/19 at 15:45 Ondansetron HCl (Zofran) 4 mg PRN Q6HRS PRN IVP NAUESA, 1ST CHOICE; Start 06/22/19 at 15:45 Calcium Gluconate (Calcium Gluconate) 1,000 mg 1X ONCE IVP ; Start 06/22/19 at 19:45; Stop 06/22/19 at 20:15; Status DC Sodium Bicarbonate (Sodium Bicarb Adult 8.4% Syr) 50 meq 1X ONCE IV Last administered on 06/22/19at 20:37; Start 06/22/19 at 19:45; Stop 06/22/19 at 19:57; Status DC Dextrose (Dextrose 50%-Water Syringe) 25 gm 1X ONCE IV Last administered on 06/22/19at 20:37; Start 06/22/19 at 19:45; Stop 06/22/19 at 19:57; Status DC Insulin Human Regular (HumuLIN R VIAL) 10 unit 1X ONCE IV Last administered on 06/22/19at 20:45; Start 06/22/19 at 19:45; Stop 06/22/19 at 19:57; Status DC Calcium Gluconate 1000 mg/Sodium Chloride 110 ml @ 220 mls/hr 1X ONCE IV Last administered on 06/22/19at 20:36; Start 06/22/19 at 20:15; Stop 06/22/19 at 20:44; Status DC Insulin Human Regular 100 unit/ Sodium Chloride 101 ml @ 0 mls/hr CONT PRN IV SEE I/O RECORD Last administered on 07/02/19at 18:55; Start 06/23/19 at 12:15; Stop 07/03/19 at 10:39; Status DC Sodium Phosphate 10 mmol/Magnesium Sulfate 5 meq/ Calcium Gluconate 15 meq/ Multivitamins 10 ml/Chromium/ Copper/Manganese/ Seleni/Zn 0.5 ml/ Insulin Human Regular 10 unit/ Total Parenteral Nutrition/Amino Acids/Dextrose/ Fat Emulsion Intravenous 1,920 ml @ 80 mls/hr TPN CONT IV Last administered on 06/23/19at 22:20; Start 06/23/19 at 22:00; Stop 06/24/19 at 21:59; Status DC Fentanyl Citrate 55 ml @ 1.98 mls/hr CONT PRN IV SEE PROTOCOL Last administered on 07/12/19at 06:21; Start 06/24/19 at 11:45 Sodium Phosphate 10 mmol/Magnesium Sulfate 5 meq/ Calcium Gluconate 15 meq/ Multivitamins 10 ml/Chromium/ Copper/Manganese/ Seleni/Zn 0.5 ml/ Total Parenteral Nutrition/Amino Acids/Dextrose/ Fat Emulsion Intravenous 1,920 ml @ 80 mls/hr TPN CONT IV Last administered on 06/24/19at 22:26; Start 06/24/19 at 22:00; Stop 06/25/19 at 21:59; Status DC Sodium Phosphate 10 mmol/Magnesium Sulfate 5 meq/ Calcium Gluconate 15 meq/ Multivitamins 10 ml/Chromium/ Copper/Manganese/ Seleni/Zn 0.5 ml/ Total Par enteral Nutrition/Amino Acids/Dextrose/ Fat Emulsion Intravenous 1,920 ml @ 80 mls/hr TPN CONT IV Last administered on 06/25/19at 22:27; Start 06/25/19 at 22:00; Stop 06/26/19 at 21:59; Status DC Sodium Phosphate 10 mmol/Magnesium Sulfate 5 meq/ Calcium Gluconate 15 meq/ Multivitamins 10 ml/Chromium/ Copper/Manganese/ Seleni/Zn 0.5 ml/ Total Parenteral Nutrition/Amino Acids/Dextrose/ Fat Emulsion Intravenous 1,920 ml @ 80 mls/hr TPN CONT IV Last administered on 06/26/19at 21:57; Start 06/26/19 at 22:00; Stop 06/27/19 at 21:59; Status DC Furosemide (Lasix) 60 mg 1X ONCE IVP Last administered on 06/26/19at 12:22; Start 06/26/19 at 12:30; Stop 06/26/19 at 12:31; Status DC Dexmedetomidine HCl 400 mcg/ Sodium Chloride 100 ml @ 0 mls/hr CONT PRN IV SEDATION ON VENT Last administered on 07/12/19at 08:32; Start 06/26/19 at 19:00 Sodium Chloride 500 ml @ 500 mls/hr 1X PRN PRN IV SEE COMMENTS; Start 06/26/19 at 19:00 Atropine Sulfate (ATROPINE 0.5mg SYRINGE) 0.5 mg PRN Q5MIN PRN IV SEE COMMENTS; Start 06/26/19 at 19:00 Sodium Bicarbonate (Sodium Bicarb Adult 8.4% Syr) 50 meq 1X ONCE IV ; Start 06/26/19 at 19:30; Stop 06/26/19 at 19:23; Status DC Furosemide (Lasix) 40 mg DAILY IVP Last administered on 07/12/19at 08:29; Start 06/27/19 at 12:00 Propofol 100 ml @ As Directed STK-MED ONCE IV ; Start 06/27/19 at 11:51; Stop 06/27/19 at 11:51; Status DC Propofol 100 ml @ 6.588 mls/ hr CONT PRN IV SEE I/O RECORD Last administered on 07/05/19at 12:08; Start 06/27/19 at 12:00 Sodium Phosphate 10 mmol/Magnesium Sulfate 5 meq/ Calcium Gluconate 15 meq/ Multivitamins 10 ml/Chromium/ Copper/Manganese/ Seleni/Zn 0.5 ml/ Total Parenteral Nutrition/Amino Acids/Dextrose/ Fat Emulsion Intravenous 1,920 ml @ 80 mls/hr TPN CONT IV ; Start 06/27/19 at 22:00; Stop 06/27/19 at 12:55; Status DC Potassium Phosphate 10 mmol/ Magnesium Sulfate 5 meq/Calcium Gluconate 15 meq/ Multivitamins 10 ml/Chromium/ Copper/Manganese/ Seleni/Zn 0.5 ml/ Total Parenteral Nutrition/Amino Acids/Dextrose/ Fat Emulsion Intravenous 1,920 ml @ 80 mls/hr TPN CONT IV Last administered on 06/27/19at 21:38; Start 06/27/19 at 22:00; Stop 06/28/19 at 21:59; Status DC Potassium Chloride/Water 100 ml @ 50 mls/hr 1X ONCE IV Last administered on 06/28/19at 15:00; Start 06/28/19 at 15:00; Stop 06/28/19 at 16:59; Status DC Potassium Phosphate 10 mmol/ Magnesium Sulfate 5 meq/Calcium Gluconate 15 meq/ Multivitamins 10 ml/Chromium/ Copper/Manganese/ Seleni/Zn 0.5 ml/ Potassium Acetate 20 meq/Total Parenteral Nutrition/Amino Acids/Dextrose/ Fat Emulsion Intravenous 1,920 ml @ 80 mls/hr TPN CONT IV Last administered on 06/28/19at 22:14; Start 06/28/19 at 22:00; Stop 06/29/19 at 21:59; Status DC Potassium Chloride/Water 100 ml @ 50 mls/hr 1X ONCE IV Last administered on 06/29/19at 08:57; Start 06/29/19 at 09:00; Stop 06/29/19 at 10:59; Status DC Potassium Phosphate 10 mmol/ Magnesium Sulfate 5 meq/Calcium Gluconate 15 meq/ Multivitamins 10 ml/Chromium/ Copper/Manganese/ Seleni/Zn 0.5 ml/ Potassium Acetate 20 meq/Total Parenteral Nutrition/Amino Acids/Dextrose/ Fat Emulsion Intravenous 1,920 ml @ 80 mls/hr TPN CONT IV Last administered on 06/29/19at 21:32; Start 06/29/19 at 22:00; Stop 06/30/19 at 21:59; Status DC Potassium Phosphate 10 mmol/ Magnesium Sulfate 5 meq/Calcium Gluconate 15 meq/ Multivitamins 10 ml/Chromium/ Copper/Manganese/ Seleni/Zn 0.5 ml/ Potassium Acetate 20 meq/Total Parenteral Nutrition/Amino Acids/Dextrose 1,920 ml @ 80 mls/hr TPN CONT IV Last administered on 06/30/19at 21:38; Start 06/30/19 at 22:00; Stop 07/01/19 at 21:59; Status DC Potassium Phosphate 10 mmol/ Magnesium Sulfate 5 meq/Calcium Gluconate 15 meq/ Multivitamins 10 ml/Chromium/ Copper/Manganese/ Seleni/Zn 0.5 ml/ Potassium Acetate 10 meq/Total Parenteral Nutrition/Amino Acids/Dextrose 1,920 ml @ 80 mls/hr TPN CONT IV Last administered on 07/01/19at 21:30; Start 07/01/19 at 22:00; Stop 07/02/19 at 21:59; Status DC Potassium Phosphate 10 mmol/ Magnesium Sulfate 5 meq/Calcium Gluconate 15 meq/ Multivitamins 10 ml/Chromium/ Copper/Manganese/ Seleni/Zn 0.5 ml/ Potassium Acetate 10 meq/Total Parenteral Nutrition/Amino Acids/Dextrose 1,920 ml @ 80 mls/hr TPN CONT IV Last administered on 07/02/19at 21:36; Start 07/02/19 at 22:00; Stop 07/03/19 at 21:59; Status DC Daptomycin 520 mg/ Sodium Chloride 50 ml @ 100 mls/hr Q24H IV Last administered on 07/12/19at 09:32; Start 07/03/19 at 10:00 Insulin Glargine (Lantus Syringe) 30 unit BID SQ Last administered on 07/12/19at 08:30; Start 07/03/19 at 11:00 Insulin Human Lispro (HumaLOG) 0-9 UNITS Q6HRS SQ Last administered on 07/10/19at 23:54; Start 07/03/19 at 12:00 Dextrose (Dextrose 50%-Water Syringe) 12.5 gm PRN Q15MIN PRN IV SEE COMMENTS; Start 07/03/19 at 10:30 Potassium Acetate 10 meq/Potassium Phosphate 10 mmol/ Magnesium Sulfate 5 meq/Calcium Gluconate 15 meq/ Multivitamins 10 ml/Chromium/ Copper/Manganese/ Seleni/Zn 0.5 ml/ Total Parenteral Nutrition/Amino Acids/Dextrose 1,920 ml @ 80 mls/hr TPN CONT IV Last administered on 07/03/19at 21:26; Start 07/03/19 at 22:00; Stop 07/04/19 at 21:59; Status DC Linezolid/Dextrose 300 ml @ 300 mls/hr Q12HR IV Last administered on 07/12/19at 08:29; Start 07/04/19 at 09:00 Potassium Acetate 10 meq/Potassium Phosphate 10 mmol/ Magnesium Sulfate 5 meq/Calcium Gluconate 15 meq/ Multivitamins 10 ml/Chromium/ Copper/Manganese/ Seleni/Zn 0.5 ml/ Total Parenteral Nutrition/Amino Acids/Dextrose 1,920 ml @ 80 mls/hr TPN CONT IV Last administered on 07/04/19at 21:13; Start 07/04/19 at 22:00; Stop 07/05/19 at 21:59; Status DC Lidocaine HCl (Buffered Lidocaine 1%) 3 ml STK-MED ONCE .ROUTE ; Start 07/04/19 at 14:23; Stop 07/04/19 at 14:23; Status DC Iohexol (Omnipaque 240 Mg/ml) 50 ml STK-MED ONCE .ROUTE ; Start 07/04/19 at 14 :23; Stop 07/04/19 at 14:24; Status DC Lidocaine HCl (Buffered Lidocaine 1%) 3 ml 1X ONCE INJ Last administered on 07/04/19at 15:34; Start 07/04/19 at 14:30; Stop 07/04/19 at 14:31; Status DC Iohexol (Omnipaque 240 Mg/ml) 50 ml 1X ONCE IJ Last administered on 07/04/19at 15:33; Start 07/04/19 at 14:30; Stop 07/04/19 at 14:31; Status DC Info (CONTRAST GIVEN -- Rx MONITORING) 1 each PRN DAILY PRN MC SEE COMMENTS; Start 07/04/19 at 14:30; Stop 07/06/19 at 14:29; Status DC Potassium Acetate 10 meq/Potassium Phosphate 10 mmol/ Magnesium Sulfate 5 meq/Calcium Gluconate 15 meq/ Multivitamins 10 ml/Chromium/ Copper/Manganese/ Seleni/Zn 0.5 ml/ Total Parenteral Nutrition/Amino Acids/Dextrose 1,920 ml @ 80 mls/hr TPN CONT IV Last administered on 07/05/19at 20:59; Start 07/05/19 at 22:00; Stop 07/06/19 at 21:59; Status DC Potassium Acetate 10 meq/Potassium Phosphate 10 mmol/ Magnesium Sulfate 5 meq/Calcium Gluconate 15 meq/ Multivitamins 10 ml/Chromium/ Copper/Manganese/ Seleni/Zn 0.5 ml/ Total Parenteral Nutrition/Amino Acids/Dextrose 1,920 ml @ 80 mls/hr TPN CONT IV Last administered on 07/06/19at 22:51; Start 07/06/19 at 22:00; Stop 07/07/19 at 21:59; Status DC Cefepime HCl (Maxipime) 2 gm Q8HRS IVP Last administered on 07/12/19at 05:41; Start 07/06/19 at 22:00 Metronidazole 100 ml @ 100 mls/hr Q8HRS IV Last administered on 07/12/19at 05:41; Start 07/06/19 at 22:00 Lidocaine HCl (Buffered Lidocaine 1%) 3 ml STK-MED ONCE .ROUTE ; Start 07/07/19 at 10:07; Stop 07/07/19 at 10:07; Status DC Iohexol (Omnipaque 240 Mg/ml) 50 ml STK-MED ONCE .ROUTE ; Start 07/07/19 at 10:07; Stop 07/07/19 at 10:07; Status DC Potassium Acetate 10 meq/Potassium Phosphate 10 mmol/ Magnesium Sulfate 10 meq/Calcium Gluconate 10 meq/ Multivitamins 10 ml/Chromium/ Copper/Manganese/ Seleni/Zn 0.5 ml/ Total Parenteral Nutrition/Amino Acids/Dextrose 1,920 ml @ 80 mls/hr TPN CONT IV Last administered on 07/07/19at 21:50; Start 07/07/19 at 22:00; Stop 07/08/19 at 21:59; Status DC Lidocaine HCl (Buffered Lidocaine 1%) 4 ml 1X ONCE IJ Last administered on 07/07/19at 12:50; Start 07/07/19 at 14:00; Stop 07/07/19 at 14:01; Status DC Iohexol (Omnipaque 240 Mg/ml) 10 ml 1X ONCE IJ Last administered on 07/07/19at 12:50; Start 07/07/19 at 14:00; Stop 07/07/19 at 14:01; Status DC Multi-Ingred Cream/Lotion/Oil/ Oint (Artificial Tears Eye Ointment) 1 devorah PRN Q1HR PRN OU DRY EYE; Start 07/08/19 at 10:30 Potassium Acetate 10 meq/Potassium Phosphate 10 mmol/ Magnesium Sulfate 10 meq/Calcium Gluconate 10 meq/ Multivitamins 10 ml/Chromium/ Copper/Manganese/ Seleni/Zn 0.5 ml/ Total Parenteral Nutrition/Amino Acids/Dextrose/ Fat Emulsion Intravenous 1,635 ml @ 68.125 mls/ hr TPN CONT IV Last administered on 07/08/19at 21:47; Start 07/08/19 at 22:00; Stop 07/09/19 at 21:59; Status DC Potassium Acetate 15 meq/Potassium Phosphate 15 mmol/ Magnesium Sulfate 10 meq/Calcium Gluconate 10 meq/ Multivitamins 10 ml/Chromium/ Copper/Manganese/ Seleni/Zn 0.5 ml/ Total Parenteral Nutrition/Amino Acids/Dextrose/ Fat Emulsion Intravenous 1,920 ml @ 80 mls/hr TPN CONT IV Last administered on 07/09/19at 21:39; Start 07/09/19 at 22:00; Stop 07/10/19 at 21:59; Status DC Potassium Acetate 15 meq/Potassium Phosphate 15 mmol/ Magnesium Sulfate 10 meq/Calcium Gluconate 10 meq/ Multivitamins 10 ml/Chromium/ Copper/Manganese/ Seleni/Zn 0.5 ml/ Total Parenteral Nutrition/Amino Acids/Dextrose/ Fat Emulsion Intravenous 1,920 ml @ 80 mls/hr TPN CONT IV Last administered on 07/10/19at 21:48; Start 07/10/19 at 22:00; Stop 07/11/19 at 21:59; Status DC Potassium Acetate 15 meq/Potassium Phosphate 15 mmol/ Magnesium Sulfate 10 meq/Calcium Gluconate 10 meq/ Multivitamins 10 ml/Chromium/ Copper/Manganese/ Seleni/Zn 0.5 ml/ Total Parenteral Nutrition/Amino Acids/Dextrose/ Fat Emulsion Intravenous 1,920 ml @ 80 mls/hr TPN CONT IV Last administered on 07/11/19at 21:32; Start 07/11/19 at 22:00; Stop 07/12/19 at 21:59 Lidocaine HCl (Buffered Lidocaine 1%) 6 ml 1X ONCE INJ Last administered on 07/11/19at 14:00; Start 07/11/19 at 14:00; Stop 07/11/19 at 14:02; Status DC Lidocaine HCl (Buffered Lidocaine 1%) 3 ml STK-MED ONCE .ROUTE ; Start 07/11/19 at 13:56; Stop 07/11/19 at 14:13; Status DC Active Scripts Active Vitals/I & O Vital Sign - Last 24 Hours 07/11/19 07/11/19 07/11/19 07/11/19 11:26 12:00 12:00 13:00 Pulse 90 84 Resp 20 20 B/P (MAP) 120/72 (88) 114/67 (83) Pulse Ox 100 100 100 O2 Delivery Ventilator Mechanical Ventilator Ventilator Ventilator 07/11/19 07/11/19 07/11/19 07/11/19 14:00 15:00 15:48 16:00 Pulse 90 102 Resp 20 20 B/P (MAP) 132/79 (96) 102/60 (74) Pulse Ox 100 100 98 O2 Delivery Ventilator Ventilator Ventilator Mechanical Ventilator 07/11/19 07/11/19 07/11/19 07/11/19 16:00 17:00 18:00 19:00 Temp 98.3 98.3 Pulse 80 78 94 81 Resp 20 20 20 20 B/P (MAP) 91/60 (70) 98/65 (76) 114/72 (86) 99/62 (74) Pulse Ox 100 100 100 100 O2 Delivery Ventilator Ventilator Ventilator Ventilator 07/11/19 07/11/19 07/11/19 07/11/19 19:30 20:00 20:18 21:00 Temp 97.9 97.9 Pulse 84 96 Resp 20 20 B/P (MAP) 103/64 (77) 119/73 (88) Pulse Ox 100 98 100 O2 Delivery Mechanical Ventilator Ventilator Ventilator Ventilator 07/11/19 07/11/19 07/11/19 07/11/19 22:00 23:00 23:28 23:45 Pulse 102 104 Resp 20 20 B/P (MAP) 108/67 (81) 135/77 (96) Pulse Ox 99 100 98 O2 Delivery Ventilator Ventilator Ventilator Mechanical Ventilator 07/11/19 07/12/19 07/12/19 07/12/19 23:55 01:00 02:00 03:00 Temp 101.3 99.5 101.3 99.5 Pulse 96 94 98 101 Resp 20 20 20 20 B/P (MAP) 102/58 (73) 108/68 (81) 117/74 (88) 115/69 (84) Pulse Ox 100 100 100 100 O2 Delivery Ventilator Ventilator Ventilator Ventilator 07/12/19 07/12/19 07/12/19 07/12/19 03:30 03:39 04:00 05:00 Temp 100.4 100.4 Pulse 99 98 Resp 20 20 B/P (MAP) 111/67 (82) 112/68 (83) Pulse Ox 98 100 100 O2 Delivery Mechanical Ventilator Ventilator Ventilator Ventilator 07/12/19 07/12/19 07/12/19 07/12/19 06:00 06:21 07:00 07:01 Pulse 93 88 Resp 20 20 B/P (MAP) 115/71 (86) 102/59 (73) Pulse Ox 100 100 O2 Delivery Ventilator Ventilator Ventilator Ventilator 07/12/19 07/12/19 07/12/19 07/12/19 07:34 08:00 08:30 09:00 Temp 101.2 101.2 Pulse 87 97 Resp 20 20 B/P (MAP) 102/60 (74) 124/77 (93) Pulse Ox 100 100 100 O2 Delivery Mechanical Ventilator Ventilator Ventilator Ventilator 07/12/19 07/12/19 10:00 11:00 Pulse 87 87 Resp 20 20 B/P (MAP) 99/58 (72) 95/59 (71) Pulse Ox 100 100 O2 Delivery Ventilator Ventilator Intake and Output 07/11/19 07/11/19 07/12/19 15:00 23:00 07:00 Intake Total 300 ml 1218 ml 1354 ml Output Total 2390 ml 1180 ml 1425 ml Balance -2090 ml 38 ml -71 ml Hemodynamically unstable?: No Is patient in severe pain?: No Is NPO status required?: Yes BILL CAMACHO MD Jul 12, 2019 11:13
--- NOTE | 2019-07-12 13:40 | PDOC ---
[facility] PROGRESS NOTE Chief Complaint Chief Complaint Severe pancreatitis with the following surgery: Exploratory laparotomy, pancreatic necrosectomy, cholecystostomy tube placement, Gastrostomy placement with jejunal extension, tracheostomy placement (specifically 8 shiley cuffed) Acute hypoxemic respiratory failure, multifactorial. Status post tracheostomy 5 drains Acute gallstone pancreatitis./ Necrosis Acute kidney failure. improving Metabolic toxic encephalopathy. Hyperkalemia.corrected Metabolic / respiratory acidosis Hypocalcemia. 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 RN Chart reviewed [id number] Patient seen and examined in the ICU Currently getting a sponge bath Got a great view of his abdomen He has a total of 7 different drains and/or catheters Still mechanically ventilated Off of pressors Sedated Periodically can open his eyes Still very critically ill Chart reviewed Discussed with RNs [id number] Patient seen and examined in the intensive care unit He remains mechanically ventilated Before meals/20/500/40% Extremely critically ill He has 4 or 5 drains in including GJ tube Discussed with RN Chart reviewed [id number] Patient seen and examined in the ICU He is still mechanically ventilated assist-control/500 with 40% Chart reviewed Discussed with RN He remains very critically ill [id number] Patient seen and examined in the ICU Discussed with general surgeon and he examined the patient with me Patient's is present in his good support for him Currently still intubated and on the vent He is on assist control with 40% oxygen Remains very critically ill Mr Mata is a 49 yo M admitted with severe epigastric pain beginning in the morning of admission. Ultimately diagnosed with gallstone pancreatitis. Hemodialysis catheter placed for renal failure. Arterial blood gas revealed a pH of 7.30, PaCO2 of 31, PaO2 of 75, bicarb was 15. Consulted ID, GI, General surgery, nephrology, pulmonology 06/21: Ex-lap with pancreatic necrosectomy, cholecystectomy, gastrostomy tube lpacement, tracheostomy placement. 06/22 - 06/26: Has 5 abdominal drains plus a Lob[place] and an NG to suction, intubated, sedated, paralyzed 06/28- 07/02: remain on micafungin, TPN. Trached on vent, sedated, 40% FiO2 07/03: His dialysis catheter and central line were removed. Ventilated via trach and sedated 07/04: Sedated on precedex. ABG reviewed, stable. Vitals stable, drains stable, still requiring ventilation on trach. Hb 7.6. TAG 1170 changed from propofol to versed for sedation 07/06 reposition G-tube. Overnight sedated. Still febrile. More comfortable on versed for sedation. Hb 7, 1u PRBC ordered. plan: Trend CBC Vitals/I&O Vitals/I&O: Vital Signs Date Time Temp Pulse Resp B/P (MAP) Pulse Ox O2 Delivery O2 Flow Rate FiO2 07/12/19 13:00 93 20 93/53 (66) 100 Ventilator 07/12/19 12:00 98.8 98.8 07/11/19 09:42 3.0 I & O 07/11/19 07/11/19 07/12/19 15:00 23:00 07:00 Intake Total 300 ml 1218 ml 1354 ml Output Total 2390 ml 1180 ml 1425 ml Balance -2090 ml 38 ml -71 ml Physical Exam Physical Exam: GENERAL: Sedated, trached/vent, HEENT: Pupils equal reactive - mild icteric NECK: Trach/ no JVD LUNGS: Diminished aeration bases HEART: S1, S2, regular ABDOMEN: Distended, fairly tight still, bowel sounds quiet, drains x5, wound vac in place : Lobato in place 2 plus edema EXTREMITIES: 1+ - 2 edema, no cyanosis. SCDs bilaterally SKIN: Warm, moist. 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 TRANSFER AGENT: Sedated Left IJ 07/06- clean. General: Other (eyes open, on sedation ) Heart: Regular rate, Normal S1, Normal S2, No murmurs, Gallops Lungs: Other (decrease bs) Abdomen: Other (abd is softer ) Extremities: No clubbing, No cyanosis, No edema, Normal pulses, No tenderness/swelling Skin: No significant lesion Labs Labs: Laboratory Tests Test 07/11/19 14:10 07/11/19 21:40 07/12/19 00:00 07/12/19 05:30 Body Fluid Source Pleural Body Fluid Color Yellow Body Fluid Clarity Cloudy Body Fluid pH 7.34 Body Fluid Nucleated Cells 1580 /cmm (Not Established) Body Fluid Mononuclear WBCs (%) 46 % Body Fluid Polymorphonuclear Cells 54 % Body Fluid Total RBCs Counted 63467 /cmm (Not Glucose (Fingerstick) 123 mg/dL (70-99) 139 mg/dL (70-99) White Blood Count 9.1 x10^3/uL (4.0-11.0) Red Blood Count 2.55 x10^6/uL (4.30-5.70) Hemoglobin 7.4 g/dL (13.0-17.5) Hematocrit 23.0 % (39.0-53.0) Mean Corpuscular Volume 91 fL (79-100) Mean Corpuscular Hemoglobin 29 pg (25-35) Mean Corpuscular Hemoglobin Concent 32 g/dL (31-37) Red Cell Distribution Width 15.3 % (11.5-14.5) Platelet Count 254 x10^3/uL (140-400) Neutrophils (%) (Auto) 74 % (31-73) Lymphocytes (%) (Auto) 16 % (24-48) Monocytes (%) (Auto) 9 % (0-9) Eosinophils (%) (Auto) 1 % (0-3) Basophils (%) (Auto) 1 % (0-3) Neutrophils # (Auto) 6.7 x10^3/uL (1.8-7.7) Lymphocytes # (Auto) 1.4 x10^3/uL (1.0-4.8) Monocytes # (Auto) 0.8 x10^3/uL (0.0-1.1) Eosinophils # (Auto) 0.1 x10^3/uL (0.0-0.7) Basophils # (Auto) 0.0 x10^3/uL (0.0-0.2) Sodium Level 145 mmol/L (136-145) Potassium Level 3.8 mmol/L (3.5-5.1) Chloride Level 112 mmol/L (98-107) Carbon Dioxide Level 27 mmol/L (21-32) Anion Gap 6 (6-14) Blood Urea Nitrogen 27 mg/dL (8-26) Creatinine 0.9 mg/dL (0.7-1.3) Estimated GFR (Cockcroft-Gault) 108.5 Glucose Level 118 mg/dL (70-99) Calcium Level 8.0 mg/dL (8.5-10.1) Test 07/12/19 05:48 07/12/19 08:00 Glucose (Fingerstick) 108 mg/dL (70-99) O2 Saturation 97 % (92-99) Arterial Blood pH 7.40 (7.35-7.45) Arterial Blood pCO2 at Patient Temp 41 mmHg (35-46) Arterial Blood pO2 at Patient Temp 106 mmHg (75-108) Arterial Blood HCO3 25 mmol/L (21-28) Arterial Blood Base Excess 0 mmol/L (-3-3) FiO2 40 Assessment and Plan Assessmemt and Plan Problems Medical Problems: (1) Acute pancreatitis Status: Acute (2) Nausea & vomiting Status: Acute Severe pancreatitis with the following surgery: Exploratory laparotomy, pancreatic necrosectomy, cholecystostomy tube placement, Gastrostomy placement with jejunal extension, tracheostomy placement (specifically 8 shiley cuffed) Acute hypoxemic respiratory failure, multifactorial. Status post tracheostomy 5 drains Acute gallstone pancreatitis./ Necrosis Acute kidney failure. improving Metabolic toxic encephalopathy. Hyperkalemia.corrected Metabolic / respiratory acidosis Hypocalcemia. Hepatitis B Hypernatremia LLL small effusion, monitor Plan: Continue ICU monitoring Continue to monitor intraabdominal pressures IV micafungin GEN IV insulin DVT prophylaxis We have a GJ tube and hope to begin feedings into the jejunum eventually For now continue TPN I discussed with case management he has been accepted at the LTAC Dr. Smyth would like to wait till next week for the LTAC and I agree Appreciate subspecialist input Vent weaning if possible IV antibiotics IV paralytics and IV sedatives Trend labs Wound care We are managing 5 abdominal drains He remains critically ill Prognosis extremely guarded Total time 31 minutes Comment Review of Relevant I have reviewed the following items alexandra (where applicable) has been applied. Medications: Current Medications Medications (Trade) Dose Ordered Sig/Jesse Route PRN Reason Start Time Stop Time Status Last Admin Dose Admin Potassium Acetate 15 meq/Potassium Phosphate 15 mmol/ Magnesium Sulfate 10 meq/Calcium Gluconate 10 meq/ Multivitamins 10 ml/Chromium/ Copper/Manganese/ Seleni/Zn 0.5 ml/ Total Parenteral Nutrition/Amino Acids/Dextrose/ Fat Emulsion Intravenous 1,920 ml @ 80 mls/hr TPN CONT IV 07/11/19 22:00 07/12/19 21:59 07/11/19 21:32 Lidocaine HCl (Buffered Lidocaine 1%) 6 ml 1X ONCE INJ 07/11/19 14:00 07/11/19 14:02 DC 07/11/19 14:00 Hemodynamically unstable?: No Is patient in severe pain?: No Is NPO status required?: Yes JUSTIN WORKMAN III DO Jul 12, 2019 13:40
--- NOTE | 2019-07-12 14:19 | PDOC ---
PULMONARY PROGRESS NOTES Subjective Patient sedated, assist control ventilation, 40% FiO2 5 of PEEP Vitals Vital Signs Date Time Temp Pulse Resp B/P (MAP) Pulse Ox O2 Delivery O2 Flow Rate FiO2 07/12/19 14:00 89 20 106/66 (79) 100 Ventilator 07/12/19 12:00 98.8 98.8 07/11/19 09:42 3.0 Comments ros unable to obtain sedated on vent HEENT: Other (nc at perrl nose clear, neck, trach site ok, no lad, no thyromegaly) Lungs: Other (decrease bs) Cardiovascular: S1, S2 Abdomen: Other (/distended/firm ) Extremities: No Edema Skin: Warm Labs Laboratory Tests Test 07/10/19 14:57 07/10/19 16:45 07/10/19 23:53 07/11/19 05:24 Glucose (Fingerstick) 130 mg/dL (70-99) 119 mg/dL (70-99) 156 mg/dL (70-99) 130 mg/dL (70-99) Test 07/11/19 05:30 07/11/19 06:00 07/11/19 08:00 07/11/19 09:48 Phosphorus Level 2.8 mg/dL (2.6-4.7) Magnesium Level 1.8 mg/dL (1.8-2.4) White Blood Count 11.7 x10^3/uL (4.0-11.0) Red Blood Count 2.62 x10^6/uL (4.30-5.70) Hemoglobin 7.5 g/dL (13.0-17.5) Hematocrit 23.7 % (39.0-53.0) Mean Corpuscular Volume 91 fL (79-100) Mean Corpuscular Hemoglobin 29 pg (25-35) Mean Corpuscular Hemoglobin Concent 32 g/dL (31-37) Red Cell Distribution Width 15.2 % (11.5-14.5) Platelet Count 356 x10^3/uL (140-400) Neutrophils (%) (Auto) 81 % (31-73) Lymphocytes (%) (Auto) 9 % (24-48) Monocytes (%) (Auto) 8 % (0-9) Eosinophils (%) (Auto) 1 % (0-3) Basophils (%) (Auto) 1 % (0-3) Neutrophils # (Auto) 9.5 x10^3/uL (1.8-7.7) Lymphocytes # (Auto) 1.1 x10^3/uL (1.0-4.8) Monocytes # (Auto) 0.9 x10^3/uL (0.0-1.1) Eosinophils # (Auto) 0.1 x10^3/uL (0.0-0.7) Basophils # (Auto) 0.1 x10^3/uL (0.0-0.2) Sodium Level 146 mmol/L (136-145) Potassium Level 3.7 mmol/L (3.5-5.1) Chloride Level 112 mmol/L (98-107) Carbon Dioxide Level 26 mmol/L (21-32) Anion Gap 8 (6-14) Blood Urea Nitrogen 29 mg/dL (8-26) Creatinine 0.9 mg/dL (0.7-1.3) Estimated GFR (Cockcroft-Gault) 108.5 BUN/Creatinine Ratio 32 (6-20) Glucose Level 141 mg/dL (70-99) Calcium Level 8.1 mg/dL (8.5-10.1) Total Bilirubin 3.5 mg/dL (0.2-1.0) Aspartate Amino Transf (AST/SGOT) 46 U/L (15-37) Alanine Aminotransferase (ALT/SGPT) 48 U/L (16-63) Alkaline Phosphatase 213 U/L (46-116) Total Protein 6.2 g/dL (6.4-8.2) Albumin 1.0 g/dL (3.4-5.0) Albumin/Globulin Ratio 0.2 (1.0-1.7) O2 Saturation 97 % (92-99) Arterial Blood pH 7.38 (7.35-7.45) Arterial Blood pCO2 at Patient Temp 42 mmHg (35-46) Arterial Blood pO2 at Patient Temp 104 mmHg (75-108) Arterial Blood HCO3 24 mmol/L (21-28) Arterial Blood Base Excess -1 mmol/L (-3-3) FiO2 40% Glucose (Fingerstick) 131 mg/dL (70-99) Test 07/11/19 14:10 07/11/19 21:40 07/12/19 00:00 07/12/19 05:30 Body Fluid Source Pleural Body Fluid Color Yellow Body Fluid Clarity Cloudy Body Fluid pH 7.34 Body Fluid Nucleated Cells 1580 /cmm (Not Established) Body Fluid Mononuclear WBCs (%) 46 % Body Fluid Polymorphonuclear Cells 54 % Body Fluid Total RBCs Counted 81708 /cmm (Not Glucose (Fingerstick) 123 mg/dL (70-99) 139 mg/dL (70-99) White Blood Count 9.1 x10^3/uL (4.0-11.0) Red Blood Count 2.55 x10^6/uL (4.30-5.70) Hemoglobin 7.4 g/dL (13.0-17.5) Hematocrit 23.0 % (39.0-53.0) Mean Corpuscular Volume 91 fL (79-100) Mean Corpuscular Hemoglobin 29 pg (25-35) Mean Corpuscular Hemoglobin Concent 32 g/dL (31-37) Red Cell Distribution Width 15.3 % (11.5-14.5) Platelet Count 254 x10^3/uL (140-400) Neutrophils (%) (Auto) 74 % (31-73) Lymphocytes (%) (Auto) 16 % (24-48) Monocytes (%) (Auto) 9 % (0-9) Eosinophils (%) (Auto) 1 % (0-3) Basophils (%) (Auto) 1 % (0-3) Neutrophils # (Auto) 6.7 x10^3/uL (1.8-7.7) Lymphocytes # (Auto) 1.4 x10^3/uL (1.0-4.8) Monocytes # (Auto) 0.8 x10^3/uL (0.0-1.1) Eosinophils # (Auto) 0.1 x10^3/uL (0.0-0.7) Basophils # (Auto) 0.0 x10^3/uL (0.0-0.2) Sodium Level 145 mmol/L (136-145) Potassium Level 3.8 mmol/L (3.5-5.1) Chloride Level 112 mmol/L (98-107) Carbon Dioxide Level 27 mmol/L (21-32) Anion Gap 6 (6-14) Blood Urea Nitrogen 27 mg/dL (8-26) Creatinine 0.9 mg/dL (0.7-1.3) Estimated GFR (Cockcroft-Gault) 108.5 Glucose Level 118 mg/dL (70-99) Calcium Level 8.0 mg/dL (8.5-10.1) Test 07/12/19 05:48 07/12/19 08:00 Glucose (Fingerstick) 108 mg/dL (70-99) O2 Saturation 97 % (92-99) Arterial Blood pH 7.40 (7.35-7.45) Arterial Blood pCO2 at Patient Temp 41 mmHg (35-46) Arterial Blood pO2 at Patient Temp 106 mmHg (75-108) Arterial Blood HCO3 25 mmol/L (21-28) Arterial Blood Base Excess 0 mmol/L (-3-3) FiO2 40 Laboratory Tests Test 07/11/19 21:40 07/12/19 00:00 07/12/19 05:30 07/12/19 05:48 Glucose (Fingerstick) 123 mg/dL (70-99) 139 mg/dL (70-99) 108 mg/dL (70-99) White Blood Count 9.1 x10^3/uL (4.0-11.0) Red Blood Count 2.55 x10^6/uL (4.30-5.70) Hemoglobin 7.4 g/dL (13.0-17.5) Hematocrit 23.0 % (39.0-53.0) Mean Corpuscular Volume 91 fL (79-100) Mean Corpuscular Hemoglobin 29 pg (25-35) Mean Corpuscular Hemoglobin Concent 32 g/dL (31-37) Red Cell Distribution Width 15.3 % (11.5-14.5) Platelet Count 254 x10^3/uL (140-400) Neutrophils (%) (Auto) 74 % (31-73) Lymphocytes (%) (Auto) 16 % (24-48) Monocytes (%) (Auto) 9 % (0-9) Eosinophils (%) (Auto) 1 % (0-3) Basophils (%) (Auto) 1 % (0-3) Neutrophils # (Auto) 6.7 x10^3/uL (1.8-7.7) Lymphocytes # (Auto) 1.4 x10^3/uL (1.0-4.8) Monocytes # (Auto) 0.8 x10^3/uL (0.0-1.1) Eosinophils # (Auto) 0.1 x10^3/uL (0.0-0.7) Basophils # (Auto) 0.0 x10^3/uL (0.0-0.2) Sodium Level 145 mmol/L (136-145) Potassium Level 3.8 mmol/L (3.5-5.1) Chloride Level 112 mmol/L (98-107) Carbon Dioxide Level 27 mmol/L (21-32) Anion Gap 6 (6-14) Blood Urea Nitrogen 27 mg/dL (8-26) Creatinine 0.9 mg/dL (0.7-1.3) Estimated GFR (Cockcroft-Gault) 108.5 Glucose Level 118 mg/dL (70-99) Calcium Level 8.0 mg/dL (8.5-10.1) Test 07/12/19 08:00 O2 Saturation 97 % (92-99) Arterial Blood pH 7.40 (7.35-7.45) Arterial Blood pCO2 at Patient Temp 41 mmHg (35-46) Arterial Blood pO2 at Patient Temp 106 mmHg (75-108) Arterial Blood HCO3 25 mmol/L (21-28) Arterial Blood Base Excess 0 mmol/L (-3-3) FiO2 40 Medications Active Scripts Medications Dose Route/Sig Max Daily Dose Days Date Category Comments CT chest IMPRESSION: Infiltrates with air bronchograms posterior medially at the right lung base without change. Moderate left pleural effusion with atelectasis or infiltrate at the left lung base without significant change. Continued presence of an enlarged edematous pancreas with inflammatory changes in the mesentery consistent with history of necrotic pancreatitis and showing some mild improvement. Continued presence of drainage tubes in the upper abdomen with no significant fluid collections surrounding the tips of these tubes. There is however still some free fluid present in the abdomen abdomen. Soft tissue process anteriorly within the cardiac fat pad which appears slightly more prominent than on previous examination and may reflect an inflammatory process. Impression . IMPRESSION: 1. Acute hypoxemic respiratory failure, multifactorial, worsened cxr 07/09 2. Acute gallstone pancreatitis./ Necrosis. s/p Exploratory laparotomy, pancreatic necrosectomy, cholecystostomy tube placement, Gastrostomy placement with jejunal extension, tracheostomy placement (specifically 8 shiley cuffed) 06/21 3. Acute kidney failure. improving 4. Metabolic toxic encephalopathy. 5. Hyperkalemia.corrected 6. Metabolic / respiratory acidosis 7. Hypocalcemia. 8. POSSIBLE ABD COMPARTMENT SYNDROME , s/p Exp lap 9. HEP B S POSITIVE 10. Hypernatremia, resolved 11. LLL small effusion, monitor 12. FEVER PER ID, improvement afebrile the last 48 hours 13. Occlusive thrombus within the cephalic vein no DVT on ultrasound ri Plan . We will continue current support, antibiotics per ID Not ready for spontaneous trial Follow surgery input Nutrition per TPN Continue current antibiotics per ID DVT GI prophylaxis Case discussed with RN Total cumulative critical care time of 35 minutes reviewing data, labs, x-ray, adjusting ventilator DESTINI MATOS MD Jul 12, 2019 14:19
[2019-07-12] MEDS: TPN PER PHARMACY MC PRN (14:53)
--- NOTE | 2019-07-12 14:58 | NUR ---
Pharmacy TPN Dosing Note S: CHRISTOPHER NEWSOME is a 49 year old M Currently receiving Central Continuous TPN started 06/19/19 B:Pertinent PMH: PANCREATITIS Height: 5 feet, 9 inches Weight: 107.7 kg Current diet: NPO LABS: Sodium: 145 Potassium: 3.8 Chloride: 112 Calcium: 8.0 Corrected Calcium: 10.40 Magnesium: 1.8 CO2: 27 SCr: 0.9 Glucose: 141, 131 Albumin: 1.0 AST: 46 ALT: 48 TPN FORMULA: TPN TYPE: Central Continuous AMINO ACIDS: 145 gm DEXTROSE: 285 gm LIPIDS: 20 gm SODIUM CHLORIDE: mEq SODIUM ACETATE: mEq SODIUM PHOSPHATE: - mmol POTASSIUM CHLORIDE: mEq POTASSIUM ACETATE: 15 mEq POTASSIUM PHOSPHATE: 15 mmol MAGNESIUM: 10 mEq CALCIUM: 10 mEq INSULIN: - units MULTIPLE VITAMIN: 10 ml TRACE ELEMENTS: 0.5 ml(s) TPN PLAN: Electrolytes WNL and stable, no changes in TPN. No labs needed tomorrow due to TPN stability. R: Continue TPN ABOVE. Will monitor electrolytes, glucose, and tolerance to TPN. RENEE EVERETT [facility], 07/12/19 [id number]
[2019-07-12] MEDS: IV NORMAL SALINE 1000ML BAG 1,000 ML IV SCH (15:39)
[2019-07-12] MEDS ORDERED: AMINO ACID IV SCH ×9 (22:00)
[2019-07-12] MEDS ORDERED: DEXTROSE 70% IV SCH ×9 (22:00)
[2019-07-12] MEDS ORDERED: TOTAL PARENTERAL NUTRITION IV SCH ×9 (22:00)
[2019-07-12] MEDS ORDERED: [UNRECOGNIZED DRUG - OTHER] IV SCH ×9 (22:00)
[2019-07-13] VITALS (23 sets, daily range): BP systolic 86–129; BP diastolic 49–81
[2019-07-13] MEDS: MIDAZOLAM HCL 50 MG in IV NORMAL SALINE 50ML 50 ML IV PRN ×4 (00:12→10:19)
[2019-07-13] MEDS: INSULIN LISPRO 300 UNITS/3 ML VIAL. SQ SCH ×4 (00:17→22:50)
[2019-07-13] MEDS: DEXMEDETOMIDINE 400 MCG in IV NORMAL SALINE 100ML 96 ML IV PRN ×6 (00:58→18:39)
[2019-07-13] MEDS: fentaNYL HIGH DOSE PCA 55 ML IV PRN (04:09)
[2019-07-13] MEDS: PANTOPRAZOLE IV PUSH 40 MG VIAL. IVP SCH ×2 (06:04→18:04)
[2019-07-13] MEDS: ENOXAPARIN 40 MG/0.4 ML SYRINGE. SQ SCH (06:04)
[2019-07-13] MEDS: CEFEPIME HCL IV Push 2 GM VIAL. IVP SCH ×3 (06:06→22:46)
[2019-07-13 06:33] LABS: BASO % 1 % (0-3); EOS # 0.1 x10^3/uL (0.0-0.7); EOS % 1 % (0-3); HEMATOCRIT 23.5 % (39.0-53.0); HEMOGLOBIN 7.5 g/dL (13.0-17.5); LYMPH # 1.1 x10^3/uL (1.0-4.8); LYMPH % 13 % (24-48); MEAN CORPUSCULAR HEMOGLOBIN 29 pg (25-35); MEAN CORPUSCULAR HGB CONC 32 g/dL (31-37); MEAN CORPUSCULAR VOLUME 90 fL (79-100); MONO % 11 % (0-9); NEUT # 6.7 x10^3/uL (1.8-7.7); NEUT % 75 % (31-73); PLATELET COUNT 252 x10^3/uL (140-400); RED BLOOD COUNT 2.61 x10^6/uL (4.30-5.70); RED CELL DISTRIBUTION WIDTH 14.9 % (11.5-14.5); WHITE BLOOD COUNT 8.9 x10^3/uL (4.0-11.0)
[2019-07-13 06:42] LABS: CREATININE 0.8 mg/dL (0.7-1.3); GFR 124.3; POTASSIUM 3.9 mmol/L (3.5-5.1)
--- NOTE | 2019-07-13 08:30 | PDOC ---
Infectious Disease Note Subjective Subjective Trach/vent FiO2 40% Sedated TPN Fever 100.6 ROS ROS unobtainable Vital Sign Vital Signs Vital Signs Date Time Temp Pulse Resp B/P (MAP) Pulse Ox O2 Delivery O2 Flow Rate FiO2 07/13/19 07:00 84 20 123/79 (94) 100 Ventilator 07/13/19 04:09 3.0 07/13/19 04:00 99.6 99.6 Physical Exam PHYSICAL EXAM GENERAL: Sedated, trached/vent, HEENT: Pupils equal reactive - mild icteric NECK: Trach LUNGS: Diminished aeration bases HEART: S1, S2, regular ABDOMEN: Distended, bowel sounds quiet, drains x5, wound vac in place : [place] in place EXTREMITIES: 1+ edema, no cyanosis. SCDs bilaterally SKIN: Warm, moist. 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 ACCESS REPRESENTATIVE: Sedated Left IJ 07/06- clean. Labs Lab Laboratory Tests Test 07/13/19 00:15 07/13/19 05:55 07/13/19 06:02 Glucose (Fingerstick) 214 mg/dL (70-99) 111 mg/dL (70-99) White Blood Count 8.9 x10^3/uL (4.0-11.0) Red Blood Count 2.61 x10^6/uL (4.30-5.70) Hemoglobin 7.5 g/dL (13.0-17.5) Hematocrit 23.5 % (39.0-53.0) Mean Corpuscular Volume 90 fL (79-100) Mean Corpuscular Hemoglobin 29 pg (25-35) Mean Corpuscular Hemoglobin Concent 32 g/dL (31-37) Red Cell Distribution Width 14.9 % (11.5-14.5) Platelet Count 252 x10^3/uL (140-400) Neutrophils (%) (Auto) 75 % (31-73) Lymphocytes (%) (Auto) 13 % (24-48) Monocytes (%) (Auto) 11 % (0-9) Eosinophils (%) (Auto) 1 % (0-3) Basophils (%) (Auto) 1 % (0-3) Neutrophils # (Auto) 6.7 x10^3/uL (1.8-7.7) Lymphocytes # (Auto) 1.1 x10^3/uL (1.0-4.8) Monocytes # (Auto) 1.0 x10^3/uL (0.0-1.1) Eosinophils # (Auto) 0.1 x10^3/uL (0.0-0.7) Basophils # (Auto) 0.0 x10^3/uL (0.0-0.2) Sodium Level 145 mmol/L (136-145) Potassium Level 3.9 mmol/L (3.5-5.1) Chloride Level 111 mmol/L (98-107) Carbon Dioxide Level 28 mmol/L (21-32) Anion Gap 6 (6-14) Blood Urea Nitrogen 23 mg/dL (8-26) Creatinine 0.8 mg/dL (0.7-1.3) Estimated GFR (Cockcroft-Gault) 124.3 Glucose Level 108 mg/dL (70-99) Calcium Level 8.0 mg/dL (8.5-10.1) Micro 07/03. BLOOD CULTURE Preliminary NO GROWTH AFTER 2 DAYS SPUTUM CULT RES 1 Final Yeast isolated. Objective Assessment Fever - ? ileus/pancreatitis/abd distension/pleural effusion/occlusive clot in cephalic - blood cults 07/05 - neg - lines chg'd 07/06 LIJ Leukocytosis - better - ? reactive given procedure 07/06, better Left pleural effusion s/p thoracentesis, 07/10 - PH 7.34, nucleated cells 1580, RBC 54870. glu 149,TP 3.2, LDH 269. cultures pending Gallbladder stone pancreatitis s/p expl lap, pancreatic necrosectomy, cholecystostomy tube placement, G-tube placement with jejunal extension, 06/21 -gastrostomy tube repositioned by IR 07/03; s/p Jejunostomy placement 07/06 per nursing, no report Intra-abd fluid collections Sepsis from GI - cult neg Acute Resp failure - s/p trach 06/21, vent dependent Lactic acidosis. Acute kidney injury previously requiring dialysis - now with improved UOP, HDC now out Metabolic acidosis. Hypocalcemia Right arm swelling, + occlusive thrombosis within the cephalic vein, no DVT on US Yeast in sputum from 07/03 likely represents colonization - was on antifungal when collected Anemia s/p PRBCs 07/05 Plan Plan of Care Continue dapto, cefepime/Flagyl (07/05) and Zyvox (for lung penetration) Consider Repeat CT scan Abd/pel Cultures neg Maintain aspiration precaution. Gen surgery following D/w nursing Critically ill Attending Co-Sign The patient was seen and interviewed as well as examined at the bedside. The chart was reviewed. The case was discussed. Agree with the plan of care. TANVI GORE APRN Jul 13, 2019 08:30 KRISTIAN GOODMAN MD Jul 13, 2019 12:01
[2019-07-13] MEDS: INSULIN GLARGINE SYRINGE. SQ SCH ×2 (08:41→21:00)
[2019-07-13] MEDS: FUROSEMIDE 40 MG/4 ML VIAL. IVP SCH (08:41)
[2019-07-13] MEDS: ALBUTEROL SULFATE 2.5 MG/3 ML NEBU. NEB SCH ×4 (08:51→20:00)
[2019-07-13 09:26] LABS: BASE EXCESS ABG 0 mmol/L (-3-3); HCO3 ABG 25 mmol/L (21-28); PCO2 ABG 39 mmHg (35-46); PO2 ABG 128 mmHg (75-108); SAT O2 ABG 98 % (92-99)
[2019-07-13 09:33] LABS: FIO2 ABG 40
[2019-07-13] MEDS: DAPTOmycin (GENERIC) IVPB 520 MG in IV NORMAL SALINE 50ML 50 ML IV SCH (09:57)
--- NOTE | 2019-07-13 10:49 | PDOC ---
PULMONARY PROGRESS NOTES Subjective Hemodynamically stable overnight on assist control ventilation Vitals Vital Signs Date Time Temp Pulse Resp B/P (MAP) Pulse Ox O2 Delivery O2 Flow Rate FiO2 07/13/19 10:00 79 20 97/60 (72) 100 Ventilator 07/13/19 08:00 99.2 99.2 07/13/19 04:09 3.0 Comments ros unable to obtain sedated on vent HEENT: Other (nc at perrl nose clear, neck, trach site ok, no lad, no thyromegaly) Lungs: Other (decrease bs) Cardiovascular: S1, S2 Abdomen: Other (/distended/firm ) Extremities: No Edema Skin: Warm Labs Laboratory Tests Test 07/11/19 14:10 07/11/19 21:40 07/12/19 00:00 07/12/19 05:30 Body Fluid Source Pleural Body Fluid Color Yellow Body Fluid Clarity Cloudy Body Fluid pH 7.34 Body Fluid Nucleated Cells 1580 /cmm (Not Established) Body Fluid Mononuclear WBCs (%) 46 % Body Fluid Polymorphonuclear Cells 54 % Body Fluid Total RBCs Counted 45316 /cmm (Not Body Fluid Glucose 149 mg/dL (.) Body Fluid Total Protein 3.2 g/dL (.) Body Fluid Lactate Dehydrogenase 269 IU/L (.) Glucose (Fingerstick) 123 mg/dL (70-99) 139 mg/dL (70-99) White Blood Count 9.1 x10^3/uL (4.0-11.0) Red Blood Count 2.55 x10^6/uL (4.30-5.70) Hemoglobin 7.4 g/dL (13.0-17.5) Hematocrit 23.0 % (39.0-53.0) Mean Corpuscular Volume 91 fL (79-100) Mean Corpuscular Hemoglobin 29 pg (25-35) Mean Corpuscular Hemoglobin Concent 32 g/dL (31-37) Red Cell Distribution Width 15.3 % (11.5-14.5) Platelet Count 254 x10^3/uL (140-400) Neutrophils (%) (Auto) 74 % (31-73) Lymphocytes (%) (Auto) 16 % (24-48) Monocytes (%) (Auto) 9 % (0-9) Eosinophils (%) (Auto) 1 % (0-3) Basophils (%) (Auto) 1 % (0-3) Neutrophils # (Auto) 6.7 x10^3/uL (1.8-7.7) Lymphocytes # (Auto) 1.4 x10^3/uL (1.0-4.8) Monocytes # (Auto) 0.8 x10^3/uL (0.0-1.1) Eosinophils # (Auto) 0.1 x10^3/uL (0.0-0.7) Basophils # (Auto) 0.0 x10^3/uL (0.0-0.2) Sodium Level 145 mmol/L (136-145) Potassium Level 3.8 mmol/L (3.5-5.1) Chloride Level 112 mmol/L (98-107) Carbon Dioxide Level 27 mmol/L (21-32) Anion Gap 6 (6-14) Blood Urea Nitrogen 27 mg/dL (8-26) Creatinine 0.9 mg/dL (0.7-1.3) Estimated GFR (Cockcroft-Gault) 108.5 Glucose Level 118 mg/dL (70-99) Calcium Level 8.0 mg/dL (8.5-10.1) Test 07/12/19 05:48 07/12/19 08:00 07/13/19 00:15 07/13/19 05:55 Glucose (Fingerstick) 108 mg/dL (70-99) 214 mg/dL (70-99) O2 Saturation 97 % (92-99) Arterial Blood pH 7.40 (7.35-7.45) Arterial Blood pCO2 at Patient Temp 41 mmHg (35-46) Arterial Blood pO2 at Patient Temp 106 mmHg (75-108) Arterial Blood HCO3 25 mmol/L (21-28) Arterial Blood Base Excess 0 mmol/L (-3-3) FiO2 40 White Blood Count 8.9 x10^3/uL (4.0-11.0) Red Blood Count 2.61 x10^6/uL (4.30-5.70) Hemoglobin 7.5 g/dL (13.0-17.5) Hematocrit 23.5 % (39.0-53.0) Mean Corpuscular Volume 90 fL (79-100) Mean Corpuscular Hemoglobin 29 pg (25-35) Mean Corpuscular Hemoglobin Concent 32 g/dL (31-37) Red Cell Distribution Width 14.9 % (11.5-14.5) Platelet Count 252 x10^3/uL (140-400) Neutrophils (%) (Auto) 75 % (31-73) Lymphocytes (%) (Auto) 13 % (24-48) Monocytes (%) (Auto) 11 % (0-9) Eosinophils (%) (Auto) 1 % (0-3) Basophils (%) (Auto) 1 % (0-3) Neutrophils # (Auto) 6.7 x10^3/uL (1.8-7.7) Lymphocytes # (Auto) 1.1 x10^3/uL (1.0-4.8) Monocytes # (Auto) 1.0 x10^3/uL (0.0-1.1) Eosinophils # (Auto) 0.1 x10^3/uL (0.0-0.7) Basophils # (Auto) 0.0 x10^3/uL (0.0-0.2) Sodium Level 145 mmol/L (136-145) Potassium Level 3.9 mmol/L (3.5-5.1) Chloride Level 111 mmol/L (98-107) Carbon Dioxide Level 28 mmol/L (21-32) Anion Gap 6 (6-14) Blood Urea Nitrogen 23 mg/dL (8-26) Creatinine 0.8 mg/dL (0.7-1.3) Estimated GFR (Cockcroft-Gault) 124.3 Glucose Level 108 mg/dL (70-99) Calcium Level 8.0 mg/dL (8.5-10.1) Test 07/13/19 06:02 07/13/19 09:15 Glucose (Fingerstick) 111 mg/dL (70-99) O2 Saturation 98 % (92-99) Arterial Blood pH 7.42 (7.35-7.45) Arterial Blood pCO2 at Patient Temp 39 mmHg (35-46) Arterial Blood pO2 at Patient Temp 128 mmHg (75-108) Arterial Blood HCO3 25 mmol/L (21-28) Arterial Blood Base Excess 0 mmol/L (-3-3) FiO2 40 Laboratory Tests Test 07/13/19 00:15 07/13/19 05:55 07/13/19 06:02 07/13/19 09:15 Glucose (Fingerstick) 214 mg/dL (70-99) 111 mg/dL (70-99) White Blood Count 8.9 x10^3/uL (4.0-11.0) Red Blood Count 2.61 x10^6/uL (4.30-5.70) Hemoglobin 7.5 g/dL (13.0-17.5) Hematocrit 23.5 % (39.0-53.0) Mean Corpuscular Volume 90 fL (79-100) Mean Corpuscular Hemoglobin 29 pg (25-35) Mean Corpuscular Hemoglobin Concent 32 g/dL (31-37) Red Cell Distribution Width 14.9 % (11.5-14.5) Platelet Count 252 x10^3/uL (140-400) Neutrophils (%) (Auto) 75 % (31-73) Lymphocytes (%) (Auto) 13 % (24-48) Monocytes (%) (Auto) 11 % (0-9) Eosinophils (%) (Auto) 1 % (0-3) Basophils (%) (Auto) 1 % (0-3) Neutrophils # (Auto) 6.7 x10^3/uL (1.8-7.7) Lymphocytes # (Auto) 1.1 x10^3/uL (1.0-4.8) Monocytes # (Auto) 1.0 x10^3/uL (0.0-1.1) Eosinophils # (Auto) 0.1 x10^3/uL (0.0-0.7) Basophils # (Auto) 0.0 x10^3/uL (0.0-0.2) Sodium Level 145 mmol/L (136-145) Potassium Level 3.9 mmol/L (3.5-5.1) Chloride Level 111 mmol/L (98-107) Carbon Dioxide Level 28 mmol/L (21-32) Anion Gap 6 (6-14) Blood Urea Nitrogen 23 mg/dL (8-26) Creatinine 0.8 mg/dL (0.7-1.3) Estimated GFR (Cockcroft-Gault) 124.3 Glucose Level 108 mg/dL (70-99) Calcium Level 8.0 mg/dL (8.5-10.1) O2 Saturation 98 % (92-99) Arterial Blood pH 7.42 (7.35-7.45) Arterial Blood pCO2 at Patient Temp 39 mmHg (35-46) Arterial Blood pO2 at Patient Temp 128 mmHg (75-108) Arterial Blood HCO3 25 mmol/L (21-28) Arterial Blood Base Excess 0 mmol/L (-3-3) FiO2 40 Medications Active Scripts Medications Dose Route/Sig Max Daily Dose Days Date Category Comments CT chest IMPRESSION: Infiltrates with air bronchograms posterior medially at the right lung base without change. Moderate left pleural effusion with atelectasis or infiltrate at the left lung base without significant change. Continued presence of an enlarged edematous pancreas with inflammatory changes in the mesentery consistent with history of necrotic pancreatitis and showing some mild improvement. Continued presence of drainage tubes in the upper abdomen with no significant fluid collections surrounding the tips of these tubes. There is however still some free fluid present in the abdomen abdomen. Soft tissue process anteriorly within the cardiac fat pad which appears slightly more prominent than on previous examination and may reflect an inflammatory process. Impression . IMPRESSION: 1. Acute hypoxemic respiratory failure, multifactorial, worsened cxr 07/09 2. Acute gallstone pancreatitis./ Necrosis. s/p Exploratory laparotomy, pancreatic necrosectomy, cholecystostomy tube placement, Gastrostomy placement with jejunal extension, tracheostomy placement (specifically 8 shiley cuffed) 06/21 3. Acute kidney failure. improving 4. Metabolic toxic encephalopathy. 5. Hyperkalemia.corrected 6. Metabolic / respiratory acidosis 7. Hypocalcemia. 8. POSSIBLE ABD COMPARTMENT SYNDROME , s/p Exp lap 9. HEP B S POSITIVE 10. Hypernatremia, resolved 11. LLL small effusion, monitor 12. FEVER PER ID, improvement afebrile the last 48 hours 13. Occlusive thrombus within the cephalic vein no DVT on ultrasound ri Repeat CT Infiltrates with air bronchograms posterior medially at the right lung base without change. Moderate left pleural effusion with atelectasis or infiltrate at the left lung base without significant change. Continued presence of an enlarged edematous pancreas with inflammatory changes in the mesentery consistent with history of necrotic pancreatitis and showing some mild improvement. Continued presence of drainage tubes in the upper abdomen with no significant fluid collections surrounding the tips of these tubes. There is however still some free fluid present in the abdomen abdomen. Soft tissue process anteriorly within the cardiac fat pad which appears slightly more prominent than on previous examination and may reflect an inflammatory process. ID note, July 12 Plan of Care Continue dapto, cefepime/Flagyl (07/05) and Zyvox (for lung penetration) Consider Repeat CT scan Abd/pel Cultures neg Maintain aspiration precaution. Gen surgery following Plan . Repeat arterial blood gas noted, will continue current support antibiotics per ID, CT chest reviewed Not ready for spontaneous trial Follow surgery input Nutrition per TPN Continue current antibiotics per ID DVT GI prophylaxis Case discussed with RN Total cumulative critical care time of 35 minutes reviewing data, labs, x-ray, adjusting ventilator DESTINI MATOS MD Jul 13, 2019 10:49
--- NOTE | 2019-07-13 13:24 | PDOC ---
[facility] PROGRESS NOTE Chief Complaint Chief Complaint Severe pancreatitis with the following surgery: Exploratory laparotomy, pancreatic necrosectomy, cholecystostomy tube placement, Gastrostomy placement with jejunal extension, tracheostomy placement (specifically 8 shiley cuffed) Acute hypoxemic respiratory failure, multifactorial. Status post tracheostomy 5 drains Acute gallstone pancreatitis./ Necrosis Acute kidney failure. improving Metabolic toxic encephalopathy. Hyperkalemia.corrected Metabolic / respiratory acidosis Hypocalcemia. Hepatitis B Hypernatremia LLL small effusion, monitor History of Present Illness History of Present Illness [id number] Patient seen and examined in the ICU his is present Discussed with RN Chart reviewed The patient actually open his eyes and tried to look at me? [id number] Patient seen and examined in the ICU He remains intubated and mechanically ventilated Extremely critically ill On TPN Versed Precedex and fentanyl Vent settings before meals/20/500/40% Discussed with foreign diplomat and RN Chart reviewed [id number] Patient seen and examined in the ICU Currently getting a sponge bath Got a great view of his abdomen He has a total of 7 different drains and/or catheters Still mechanically ventilated Off of pressors Sedated Periodically can open his eyes Still very critically ill Chart reviewed Discussed with RNs [id number] Patient seen and examined in the intensive care unit He remains mechanically ventilated Before meals/20/500/40% Extremely critically ill He has 4 or 5 drains in including GJ tube Discussed with RN Chart reviewed [id number] Patient seen and examined in the ICU He is still mechanically ventilated assist-control/500 with 40% Chart reviewed Discussed with RN He remains very critically ill [id number] Patient seen and examined in the ICU Discussed with general surgeon and he examined the patient with me Patient's is present in his good support for him Currently still intubated and on the vent He is on assist control with 40% oxygen Remains very critically ill Mr Mata is a 49 yo M admitted with severe epigastric pain beginning in the morning of admission. Ultimately diagnosed with gallstone pancreatitis. Hemodialysis catheter placed for renal failure. Arterial blood gas revealed a pH of 7.30, PaCO2 of 31, PaO2 of 75, bicarb was 15. Consulted ID, GI, General surgery, nephrology, pulmonology 06/21: Ex-lap with pancreatic necrosectomy, cholecystectomy, gastrostomy tube lpacement, tracheostomy placement. 06/22 - 06/26: Has 5 abdominal drains plus a [place] and an NG to suction, intubated, sedated, paralyzed 06/28- 07/02: remain on micafungin, TPN. Trached on vent, sedated, 40% FiO2 07/03: His dialysis catheter and central line were removed. Ventilated via trach and sedated 07/04: Sedated on precedex. ABG reviewed, stable. Vitals stable, drains stable, still requiring ventilation on trach. Hb 7.6. TAG 1170 changed from propofol to versed for sedation 07/06 reposition G-tube. Overnight sedated. Still febrile. More comfortable on versed for sedation. Hb 7, 1u PRBC ordered. plan: Trend CBC Vitals/I&O Vitals/I&O: Vital Signs Date Time Temp Pulse Resp B/P (MAP) Pulse Ox O2 Delivery O2 Flow Rate FiO2 07/13/19 13:00 96 20 102/63 (76) 100 Ventilator 07/13/19 12:00 99.0 99.0 07/13/19 04:09 3.0 I & O 07/12/19 07/12/19 07/13/19 15:00 23:00 07:00 Intake Total 350 ml 1812 ml 1442.4 ml Output Total 1860 ml 1145 ml 1105 ml Balance -1510 ml 667 ml 337.4 ml Physical Exam Physical Exam: GENERAL: Sedated, trached/vent, HEENT: Pupils equal reactive - mild icteric NECK: Trach LUNGS: Diminished aeration bases HEART: S1, S2, regular ABDOMEN: Distended, bowel sounds quiet, drains x5, wound vac in place : Lobato in place EXTREMITIES: 1+ edema, no cyanosis. SCDs bilaterally SKIN: Warm, moist. 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 General: Other (eyes open, on sedation ) Heart: Regular rate, Normal S1, Normal S2, No murmurs, Gallops Lungs: Other (decrease bs) Abdomen: Other (abd is softer ) Extremities: No clubbing, No cyanosis, No edema, Normal pulses, No tende rness/swelling Skin: No significant lesion Labs Labs: Laboratory Tests Test 07/13/19 00:15 07/13/19 05:55 07/13/19 06:02 07/13/19 09:15 Glucose (Fingerstick) 214 mg/dL (70-99) 111 mg/dL (70-99) White Blood Count 8.9 x10^3/uL (4.0-11.0) Red Blood Count 2.61 x10^6/uL (4.30-5.70) Hemoglobin 7.5 g/dL (13.0-17.5) Hematocrit 23.5 % (39.0-53.0) Mean Corpuscular Volume 90 fL (79-100) Mean Corpuscular Hemoglobin 29 pg (25-35) Mean Corpuscular Hemoglobin Concent 32 g/dL (31-37) Red Cell Distribution Width 14.9 % (11.5-14.5) Platelet Count 252 x10^3/uL (140-400) Neutrophils (%) (Auto) 75 % (31-73) Lymphocytes (%) (Auto) 13 % (24-48) Monocytes (%) (Auto) 11 % (0-9) Eosinophils (%) (Auto) 1 % (0-3) Basophils (%) (Auto) 1 % (0-3) Neutrophils # (Auto) 6.7 x10^3/uL (1.8-7.7) Lymphocytes # (Auto) 1.1 x10^3/uL (1.0-4.8) Monocytes # (Auto) 1.0 x10^3/uL (0.0-1.1) Eosinophils # (Auto) 0.1 x10^3/uL (0.0-0.7) Basophils # (Auto) 0.0 x10^3/uL (0.0-0.2) Sodium Level 145 mmol/L (136-145) Potassium Level 3.9 mmol/L (3.5-5.1) Chloride Level 111 mmol/L (98-107) Carbon Dioxide Level 28 mmol/L (21-32) Anion Gap 6 (6-14) Blood Urea Nitrogen 23 mg/dL (8-26) Creatinine 0.8 mg/dL (0.7-1.3) Estimated GFR (Cockcroft-Gault) 124.3 Glucose Level 108 mg/dL (70-99) Calcium Level 8.0 mg/dL (8.5-10.1) O2 Saturation 98 % (92-99) Arterial Blood pH 7.42 (7.35-7.45) Arterial Blood pCO2 at Patient Temp 39 mmHg (35-46) Arterial Blood pO2 at Patient Temp 128 mmHg (75-108) Arterial Blood HCO3 25 mmol/L (21-28) Arterial Blood Base Excess 0 mmol/L (-3-3) FiO2 40 Test 07/13/19 11:56 Glucose (Fingerstick) 137 mg/dL (70-99) Assessment and Plan Assessmemt and Plan Problems Medical Problems: (1) Acute pancreatitis Status: Acute (2) Nausea & vomiting Status: Acute Severe pancreatitis with the following surgery: Exploratory laparotomy, pancreatic necrosectomy, cholecystostomy tube placement, Gastrostomy placement with jejunal extension, tracheostomy placement (specifically 8 shiley cuffed) Acute hypoxemic respiratory failure, multifactorial. Status post tracheostomy 5 drains Acute gallstone pancreatitis./ Necrosis Acute kidney failure. improving Metabolic toxic encephalopathy. Hyperkalemia.corrected Metabolic / respiratory acidosis Hypocalcemia. Hepatitis B Hypernatremia LLL small effusion, monitor Plan: Continue ICU monitoring Continue to monitor intraabdominal pressures IV micafungin GEN IV insulin DVT prophylaxis We have a GJ tube and hope to begin feedings into the jejunum eventually For now continue TPN I discussed with case management he has been accepted at the LTAC Dr. Smyth would like to wait till next week for the LTAC and I agree Appreciate subspecialist input Vent weaning if possible IV antibiotics IV paralytics and IV sedatives Trend labs Wound care We are managing 5 abdominal drains He remains critically ill Prognosis extremely guarded Total time 34 minutes Comment Review of Relevant I have reviewed the following items alexandra (where applicable) has been applied. Medications: Current Medications Medications (Trade) Dose Ordered Sig/Jesse Route PRN Reason Start Time Stop Time Status Last Admin Dose Admin Potassium Acetate 15 meq/Potassium Phosphate 15 mmol/ Magnesium Sulfate 10 meq/Calcium Gluconate 10 meq/ Multivitamins 10 ml/Chromium/ Copper/Manganese/ Seleni/Zn 0.5 ml/ Total Parenteral Nutrition/Amino Acids/Dextrose/ Fat Emulsion Intravenous 1,920 ml @ 80 mls/hr TPN CONT IV 07/12/19 22:00 07/13/19 21:59 07/12/19 21:39 Hemodynamically unstable?: No Is patient in severe pain?: No Is NPO status required?: Yes JUSTIN WORKMAN III DO Jul 13, 2019 13:24
--- NOTE | 2019-07-13 13:58 | NUR ---
Pharmacy TPN Dosing Note S: CHRISTOPHER NEWSOME is a 49 year old M Currently receiving Central Continuous TPN started 06/19/19 B:Pertinent PMH: PANCREATITIS Height: 5 feet, 9 inches Weight: 110.0 kg Current diet: NPO LABS: Sodium: 145 Potassium: 3.8 Chloride: 112 Calcium: 8.0 Corrected Calcium: 10.40 Magnesium: 1.8 CO2: 27 SCr: 0.9 Glucose: 141, 131 Albumin: 1.0 AST: 46 ALT: 48 TPN FORMULA: TPN TYPE: Central Continuous AMINO ACIDS: 145 gm DEXTROSE: 285 gm LIPIDS: 20 gm SODIUM CHLORIDE: mEq SODIUM ACETATE: mEq SODIUM PHOSPHATE: - mmol POTASSIUM CHLORIDE: mEq POTASSIUM ACETATE: 15 mEq POTASSIUM PHOSPHATE: 15 mmol MAGNESIUM: 10 mEq CALCIUM: 10 mEq INSULIN: - units MULTIPLE VITAMIN: 10 ml TRACE ELEMENTS: 0.5 ml(s) TPN PLAN: Electrolytes WNL and stable, no changes in TPN. No labs needed tomorrow due to TPN stability. R: Continue TPN ABOVE. Will monitor electrolytes, glucose, and tolerance to TPN. [facility], 07/13/19 [id number]
[2019-07-13] MEDS: TPN PER PHARMACY MC PRN (14:08)
[2019-07-13] MEDS: MIDAZOLAM HCL 100 MG in IV NORMAL SALINE 100ML 100 ML IV PRN (15:22)
[2019-07-13] MEDS ORDERED: DEXTROSE 70% IV SCH ×9 (22:00)
[2019-07-13] MEDS ORDERED: [UNRECOGNIZED DRUG - OTHER] IV SCH ×9 (22:00)
[2019-07-13] MEDS ORDERED: TOTAL PARENTERAL NUTRITION IV SCH ×9 (22:00)
[2019-07-13] MEDS ORDERED: AMINO ACID IV SCH ×9 (22:00)
[2019-07-13] MEDS ORDERED: fentaNYL HIGH DOSE PCA 2,750 MCG/55 ML PCA.SYRING IV ONE (22:45)
[2019-07-14] VITALS (23 sets, daily range): BP systolic 83–181; BP diastolic 46–98
[2019-07-14] MEDS: DEXMEDETOMIDINE 400 MCG in IV NORMAL SALINE 100ML 96 ML IV PRN ×6 (01:00→22:24)
[2019-07-14] MEDS: MIDAZOLAM HCL 100 MG in IV NORMAL SALINE 100ML 100 ML IV PRN ×3 (01:00→20:24)
[2019-07-14] MEDS: fentaNYL HIGH DOSE PCA 55 ML IV PRN ×2 (04:23→23:40)
[2019-07-14] MEDS: INSULIN LISPRO 300 UNITS/3 ML VIAL. SQ SCH ×4 (06:00→18:00)
[2019-07-14] MEDS: PANTOPRAZOLE IV PUSH 40 MG VIAL. IVP SCH ×2 (06:43→08:08)
[2019-07-14] MEDS: ENOXAPARIN 40 MG/0.4 ML SYRINGE. SQ SCH (06:44)
[2019-07-14] MEDS: CEFEPIME HCL IV Push 2 GM VIAL. IVP SCH ×3 (06:45→22:24)
[2019-07-14 08:21] LABS: BASO # 0.1 x10^3/uL (0.0-0.2); BASO % 1 % (0-3); EOS # 0.1 x10^3/uL (0.0-0.7); EOS % 1 % (0-3); HEMATOCRIT 25.3 % (39.0-53.0); HEMOGLOBIN 7.9 g/dL (13.0-17.5); LYMPH # 1.8 x10^3/uL (1.0-4.8); LYMPH % 14 % (24-48); MEAN CORPUSCULAR HEMOGLOBIN 28 pg (25-35); MEAN CORPUSCULAR HGB CONC 31 g/dL (31-37); MEAN CORPUSCULAR VOLUME 91 fL (79-100); MONO # 1.5 x10^3/uL (0.0-1.1); MONO % 12 % (0-9); NEUT # 9.4 x10^3/uL (1.8-7.7); NEUT % 73 % (31-73); PLATELET COUNT 258 x10^3/uL (140-400); RED CELL DISTRIBUTION WIDTH 15.2 % (11.5-14.5); WHITE BLOOD COUNT 12.9 x10^3/uL (4.0-11.0)
[2019-07-14 08:30] LABS: CALCIUM 8.1 mg/dL (8.5-10.1); CREATININE 0.9 mg/dL (0.7-1.3); GFR 108.5; POTASSIUM 4.2 mmol/L (3.5-5.1)
--- NOTE | 2019-07-14 08:30 | PDOC ---
PULMONARY PROGRESS NOTES Subjective Hemodynamically stable, currently on AVAPS respirator Vitals Vital Signs Date Time Temp Pulse Resp B/P (MAP) Pulse Ox O2 Delivery O2 Flow Rate FiO2 07/14/19 04:50 35 96 Ventilator 07/14/19 03:00 85 86/56 (66) 07/14/19 00:00 100.3 100.3 Comments ros unable to obtain sedated on vent HEENT: Other (nc at perrl nose clear, neck, trach site ok, no lad, no thyromegaly) Lungs: Other (decrease bs) Cardiovascular: S1, S2 Abdomen: Other (/distended/firm ) Extremities: No Edema Skin: Warm Labs Laboratory Tests Test 07/13/19 00:15 07/13/19 05:55 07/13/19 06:02 07/13/19 09:15 Glucose (Fingerstick) 214 mg/dL (70-99) 111 mg/dL (70-99) White Blood Count 8.9 x10^3/uL (4.0-11.0) Red Blood Count 2.61 x10^6/uL (4.30-5.70) Hemoglobin 7.5 g/dL (13.0-17.5) Hematocrit 23.5 % (39.0-53.0) Mean Corpuscular Volume 90 fL (79-100) Mean Corpuscular Hemoglobin 29 pg (25-35) Mean Corpuscular Hemoglobin Concent 32 g/dL (31-37) Red Cell Distribution Width 14.9 % (11.5-14.5) Platelet Count 252 x10^3/uL (140-400) Neutrophils (%) (Auto) 75 % (31-73) Lymphocytes (%) (Auto) 13 % (24-48) Monocytes (%) (Auto) 11 % (0-9) Eosinophils (%) (Auto) 1 % (0-3) Basophils (%) (Auto) 1 % (0-3) Neutrophils # (Auto) 6.7 x10^3/uL (1.8-7.7) Lymphocytes # (Auto) 1.1 x10^3/uL (1.0-4.8) Monocytes # (Auto) 1.0 x10^3/uL (0.0-1.1) Eosinophils # (Auto) 0.1 x10^3/uL (0.0-0.7) Basophils # (Auto) 0.0 x10^3/uL (0.0-0.2) Sodium Level 145 mmol/L (136-145) Potassium Level 3.9 mmol/L (3.5-5.1) Chloride Level 111 mmol/L (98-107) Carbon Dioxide Level 28 mmol/L (21-32) Anion Gap 6 (6-14) Blood Urea Nitrogen 23 mg/dL (8-26) Creatinine 0.8 mg/dL (0.7-1.3) Estimated GFR (Cockcroft-Gault) 124.3 Glucose Level 108 mg/dL (70-99) Calcium Level 8.0 mg/dL (8.5-10.1) O2 Saturation 98 % (92-99) Arterial Blood pH 7.42 (7.35-7.45) Arterial Blood pCO2 at Patient Temp 39 mmHg (35-46) Arterial Blood pO2 at Patient Temp 128 mmHg (75-108) Arterial Blood HCO3 25 mmol/L (21-28) Arterial Blood Base Excess 0 mmol/L (-3-3) FiO2 40 Test 07/13/19 11:56 07/13/19 22:49 07/14/19 04:27 07/14/19 08:00 Glucose (Fingerstick) 137 mg/dL (70-99) 135 mg/dL (70-99) 175 mg/dL (70-99) 145 mg/dL (70-99) Laboratory Tests Test 07/13/19 09:15 07/13/19 11:56 07/13/19 22:49 07/14/19 04:27 O2 Saturation 98 % (92-99) Arterial Blood pH 7.42 (7.35-7.45) Arterial Blood pCO2 at Patient Temp 39 mmHg (35-46) Arterial Blood pO2 at Patient Temp 128 mmHg (75-108) Arterial Blood HCO3 25 mmol/L (21-28) Arterial Blood Base Excess 0 mmol/L (-3-3) FiO2 40 Glucose (Fingerstick) 137 mg/dL (70-99) 135 mg/dL (70-99) 175 mg/dL (70-99) Test 07/14/19 08:00 Glucose (Fingerstick) 145 mg/dL (70-99) Medications Active Scripts Medications Dose Route/Sig Max Daily Dose Days Date Category Comments CT chest 3, 27 IMPRESSION: Infiltrates with air bronchograms posterior medially at the right lung base without change. Moderate left pleural effusion with atelectasis or infiltrate at the left lung base without significant change. Continued presence of an enlarged edematous pancreas with inflammatory changes in the mesentery consistent with history of necrotic pancreatitis and showing some mild improvement. Continued presence of drainage tubes in the upper abdomen with no significant fluid collections surrounding the tips of these tubes. There is however still some free fluid present in the abdomen abdomen. Soft tissue process anteriorly within the cardiac fat pad which appears slightly more prominent than on previous examination and may reflect an inflammatory process. Impression . IMPRESSION: 1. Acute hypoxemic respiratory failure, multifactorial, worsened cxr 07/09 2. Acute gallstone pancreatitis./ Necrosis. s/p Exploratory laparotomy, pancreatic necrosectomy, cholecystostomy tube placement, Gastrostomy placement with jejunal extension, tracheostomy placement (specifically 8 shiley cuffed) 06/21 3. Acute kidney failure. improving 4. Metabolic toxic encephalopathy. 5. Hyperkalemia.corrected 6. Metabolic / respiratory acidosis 7. Hypocalcemia. 8. POSSIBLE ABD COMPARTMENT SYNDROME , s/p Exp lap 9. HEP B S POSITIVE 10. Hypernatremia, resolved 11. LLL small effusion, monitor 12. FEVER PER ID, improvement afebrile the last 48 hours 13. Occlusive thrombus within the cephalic vein no DVT on ultrasound ri Repeat CT Infiltrates with air bronchograms posterior medially at the right lung base without change. Moderate left pleural effusion with atelectasis or infiltrate at the left lung base without significant change. Continued presence of an enlarged edematous pancreas with inflammatory changes in the mesentery consistent with history of necrotic pancreatitis and showing some mild improvement. Continued presence of drainage tubes in the upper abdomen with no significant fluid collections surrounding the tips of these tubes. There is however still some free fluid present in the abdomen abdomen. Soft tissue process anteriorly within the cardiac fat pad which appears slightly more prominent than on previous examination and may reflect an inflammatory process. ID note, July 12 Plan of Care Continue dapto, cefepime/Flagyl (07/05) and Zyvox (for lung penetration) Consider Repeat CT scan Abd/pel Cultures neg Maintain aspiration precaution. Gen surgery following Plan . Repeat arterial blood gas noted, will continue current support Antibiotics per ID Possible repeat CT abdomen, will defer to ID and surgery Not ready for spontaneous trial Follow surgery input Nutrition per TPN Continue current antibiotics per ID DVT GI prophylaxis Case discussed with RN Total cumulative critical care time of 35 minutes reviewing data, labs, x-ray, adjusting ventilator DESTINI MATOS MD Jul 14, 2019 08:30
[2019-07-14] MEDS: INSULIN GLARGINE SYRINGE. SQ SCH ×2 (09:00→21:21)
--- NOTE | 2019-07-14 09:26 | PDOC ---
Infectious Disease Note Subjective Subjective Trach/vent FiO2 40% Sedated TPN ROS ROS no n/v/d/ Vital Sign Vital Signs Vital Signs Date Time Temp Pulse Resp B/P (MAP) Pulse Ox O2 Delivery O2 Flow Rate FiO2 07/14/19 07:00 88 20 165/77 (106) 97 Ventilator 07/14/19 04:00 99.5 99.5 Physical Exam PHYSICAL EXAM GENERAL: Sedated, trached/vent, HEENT: Pupils equal reactive - mild icteric NECK: Trach LUNGS: Diminished aeration bases HEART: S1, S2, regular ABDOMEN: Distended, bowel sounds quiet, drains x5, wound vac in place : Lobato in place EXTREMITIES: 1+ edema, no cyanosis. SCDs bilaterally SKIN: Warm, moist. 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 Labs Lab Laboratory Tests Test 07/13/19 11:56 07/13/19 22:49 07/14/19 04:27 07/14/19 08:00 Glucose (Fingerstick) 137 mg/dL (70-99) 135 mg/dL (70-99) 175 mg/dL (70-99) 145 mg/dL (70-99) White Blood Count 12.9 x10^3/uL (4.0-11.0) Red Blood Count 2.80 x10^6/uL (4.30-5.70) Hemoglobin 7.9 g/dL (13.0-17.5) Hematocrit 25.3 % (39.0-53.0) Mean Corpuscular Volume 91 fL (79-100) Mean Corpuscular Hemoglobin 28 pg (25-35) Mean Corpuscular Hemoglobin Concent 31 g/dL (31-37) Red Cell Distribution Width 15.2 % (11.5-14.5) Platelet Count 258 x10^3/uL (140-400) Neutrophils (%) (Auto) 73 % (31-73) Lymphocytes (%) (Auto) 14 % (24-48) Monocytes (%) (Auto) 12 % (0-9) Eosinophils (%) (Auto) 1 % (0-3) Basophils (%) (Auto) 1 % (0-3) Neutrophils # (Auto) 9.4 x10^3/uL (1.8-7.7) Lymphocytes # (Auto) 1.8 x10^3/uL (1.0-4.8) Monocytes # (Auto) 1.5 x10^3/uL (0.0-1.1) Eosinophils # (Auto) 0.1 x10^3/uL (0.0-0.7) Basophils # (Auto) 0.1 x10^3/uL (0.0-0.2) Sodium Level 141 mmol/L (136-145) Potassium Level 4.2 mmol/L (3.5-5.1) Chloride Level 109 mmol/L (98-107) Carbon Dioxide Level 28 mmol/L (21-32) Anion Gap 4 (6-14) Blood Urea Nitrogen 23 mg/dL (8-26) Creatinine 0.9 mg/dL (0.7-1.3) Estimated GFR (Cockcroft-Gault) 108.5 Glucose Level 151 mg/dL (70-99) Calcium Level 8.1 mg/dL (8.5-10.1) Micro Microbiology 06/20/19 Blood Culture - Preliminary, Resulted NO GROWTH AFTER 2 DAYS Objective Assessment Fever - ? ileus/pancreatitis/abd distension/pleural effusion/occlusive clot in cephalic - blood cults 07/05 - neg - lines chg'd 07/06 LIJ Leukocytosis - better - ? reactive given procedure 07/06, better Left pleural effusion s/p thoracentesis, 07/10 - PH 7.34, nucleated cells 1580, RBC 51592. glu 149,TP 3.2, LDH 269. cultures pending Gallbladder stone pancreatitis s/p expl lap, pancreatic necrosectomy, cholecystostomy tube placement, G-tube placement with jejunal extension, 06/21 -gastrostomy tube repositioned by IR 07/03; s/p Jejunostomy placement 07/06 per nursing, no report Intra-abd fluid collections Sepsis from GI - cult neg Acute Resp failure - s/p trach 06/21, vent dependent Lactic acidosis. Acute kidney injury previously requiring dialysis - now with improved UOP, HDC now out Metabolic acidosis. Hypocalcemia Right arm swelling, + occlusive thrombosis within the cephalic vein, no DVT on US Yeast in sputum from 07/03 likely represents colonization - was on antifungal when collected Anemia s/p PRBCs 07/05 Plan Plan of Care Continue cefepime/Flagyl (07/05) and Zyvox (for lung penetration) d/c dapto Consider Repeat CT scan Abd/pel Cultures neg Maintain aspiration precaution. Gen surgery following D/w nursing Critically ill KRISTIAN GOODMAN MD Jul 14, 2019 09:26
--- NOTE | 2019-07-14 09:28 | PDOC ---
SURGICAL PROGRESS NOTE Subjective no acute changes ICU vent/sedation Vital Signs Vital Signs Date Time Temp Pulse Resp B/P (MAP) Pulse Ox O2 Delivery O2 Flow Rate FiO2 07/14/19 07:00 88 20 165/77 (106) 97 Ventilator 07/14/19 04:00 99.5 99.5 I&O Intake and Output 07/14/19 07:00 Intake Total 450 ml Output Total 3380 ml Balance -2930 ml IV Total 450 ml Output Urine Total 3005 ml Drainage Total 60 ml Other 315 ml HEENT: Other (vent, trach in place) Abdomen: Soft, Other (vac, drains in place) Labs Laboratory Tests Test 07/13/19 00:15 07/13/19 05:55 07/13/19 06:02 07/13/19 09:15 Glucose (Fingerstick) 214 mg/dL (70-99) 111 mg/dL (70-99) White Blood Count 8.9 x10^3/uL (4.0-11.0) Red Blood Count 2.61 x10^6/uL (4.30-5.70) Hemoglobin 7.5 g/dL (13.0-17.5) Hematocrit 23.5 % (39.0-53.0) Mean Corpuscular Volume 90 fL (79-100) Mean Corpuscular Hemoglobin 29 pg (25-35) Mean Corpuscular Hemoglobin Concent 32 g/dL (31-37) Red Cell Distribution Width 14.9 % (11.5-14.5) Platelet Count 252 x10^3/uL (140-400) Neutrophils (%) (Auto) 75 % (31-73) Lymphocytes (%) (Auto) 13 % (24-48) Monocytes (%) (Auto) 11 % (0-9) Eosinophils (%) (Auto) 1 % (0-3) Basophils (%) (Auto) 1 % (0-3) Neutrophils # (Auto) 6.7 x10^3/uL (1.8-7.7) Lymphocytes # (Auto) 1.1 x10^3/uL (1.0-4.8) Monocytes # (Auto) 1.0 x10^3/uL (0.0-1.1) Eosinophils # (Auto) 0.1 x10^3/uL (0.0-0.7) Basophils # (Auto) 0.0 x10^3/uL (0.0-0.2) Sodium Level 145 mmol/L (136-145) Potassium Level 3.9 mmol/L (3.5-5.1) Chloride Level 111 mmol/L (98-107) Carbon Dioxide Level 28 mmol/L (21-32) Anion Gap 6 (6-14) Blood Urea Nitrogen 23 mg/dL (8-26) Creatinine 0.8 mg/dL (0.7-1.3) Estimated GFR (Cockcroft-Gault) 124.3 Glucose Level 108 mg/dL (70-99) Calcium Level 8.0 mg/dL (8.5-10.1) O2 Saturation 98 % (92-99) Arterial Blood pH 7.42 (7.35-7.45) Arterial Blood pCO2 at Patient Temp 39 mmHg (35-46) Arterial Blood pO2 at Patient Temp 128 mmHg (75-108) Arterial Blood HCO3 25 mmol/L (21-28) Arterial Blood Base Excess 0 mmol/L (-3-3) FiO2 40 Test 07/13/19 11:56 07/13/19 22:49 07/14/19 04:27 07/14/19 08:00 Glucose (Fingerstick) 137 mg/dL (70-99) 135 mg/dL (70-99) 175 mg/dL (70-99) 145 mg/dL (70-99) White Blood Count 12.9 x10^3/uL (4.0-11.0) Red Blood Count 2.80 x10^6/uL (4.30-5.70) Hemoglobin 7.9 g/dL (13.0-17.5) Hematocrit 25.3 % (39.0-53.0) Mean Corpuscular Volume 91 fL (79-100) Mean Corpuscular Hemoglobin 28 pg (25-35) Mean Corpuscular Hemoglobin Concent 31 g/dL (31-37) Red Cell Distribution Width 15.2 % (11.5-14.5) Platelet Count 258 x10^3/uL (140-400) Neutrophils (%) (Auto) 73 % (31-73) Lymphocytes (%) (Auto) 14 % (24-48) Monocytes (%) (Auto) 12 % (0-9) Eosinophils (%) (Auto) 1 % (0-3) Basophils (%) (Auto) 1 % (0-3) Neutrophils # (Auto) 9.4 x10^3/uL (1.8-7.7) Lymphocytes # (Auto) 1.8 x10^3/uL (1.0-4.8) Monocytes # (Auto) 1.5 x10^3/uL (0.0-1.1) Eosinophils # (Auto) 0.1 x10^3/uL (0.0-0.7) Basophils # (Auto) 0.1 x10^3/uL (0.0-0.2) Sodium Level 141 mmol/L (136-145) Potassium Level 4.2 mmol/L (3.5-5.1) Chloride Level 109 mmol/L (98-107) Carbon Dioxide Level 28 mmol/L (21-32) Anion Gap 4 (6-14) Blood Urea Nitrogen 23 mg/dL (8-26) Creatinine 0.9 mg/dL (0.7-1.3) Estimated GFR (Cockcroft-Gault) 108.5 Glucose Level 151 mg/dL (70-99) Calcium Level 8.1 mg/dL (8.5-10.1) Laboratory Tests Test 07/13/19 11:56 07/13/19 22:49 07/14/19 04:27 07/14/19 08:00 Glucose (Fingerstick) 137 mg/dL (70-99) 135 mg/dL (70-99) 175 mg/dL (70-99) 145 mg/dL (70-99) White Blood Count 12.9 x10^3/uL (4.0-11.0) Red Blood Count 2.80 x10^6/uL (4.30-5.70) Hemoglobin 7.9 g/dL (13.0-17.5) Hematocrit 25.3 % (39.0-53.0) Mean Corpuscular Volume 91 fL (79-100) Mean Corpuscular Hemoglobin 28 pg (25-35) Mean Corpuscular Hemoglobin Concent 31 g/dL (31-37) Red Cell Distribution Width 15.2 % (11.5-14.5) Platelet Count 258 x10^3/uL (140-400) Neutrophils (%) (Auto) 73 % (31-73) Lymphocytes (%) (Auto) 14 % (24-48) Monocytes (%) (Auto) 12 % (0-9) Eosinophils (%) (Auto) 1 % (0-3) Basophils (%) (Auto) 1 % (0-3) Neutrophils # (Auto) 9.4 x10^3/uL (1.8-7.7) Lymphocytes # (Auto) 1.8 x10^3/uL (1.0-4.8) Monocytes # (Auto) 1.5 x10^3/uL (0.0-1.1) Eosinophils # (Auto) 0.1 x10^3/uL (0.0-0.7) Basophils # (Auto) 0.1 x10^3/uL (0.0-0.2) Sodium Level 141 mmol/L (136-145) Potassium Level 4.2 mmol/L (3.5-5.1) Chloride Level 109 mmol/L (98-107) Carbon Dioxide Level 28 mmol/L (21-32) Anion Gap 4 (6-14) Blood Urea Nitrogen 23 mg/dL (8-26) Creatinine 0.9 mg/dL (0.7-1.3) Estimated GFR (Cockcroft-Gault) 108.5 Glucose Level 151 mg/dL (70-99) Calcium Level 8.1 mg/dL (8.5-10.1) Problem List Problems Medical Problems: (1) Acute pancreatitis Status: Acute (2) Nausea & vomiting Status: Acute Assessment/Plan supportive measures MAXIMILIANO GREENBERG APRN Jul 14, 2019 09:28
[2019-07-14] MEDS: IV NORMAL SALINE 1000ML BAG 1,000 ML IV SCH ×2 (11:11→14:29)
--- NOTE | 2019-07-14 11:25 | PDOC ---
[facility] PROGRESS NOTE Chief Complaint Chief Complaint Severe pancreatitis with the following surgery: Exploratory laparotomy, pancreatic necrosectomy, cholecystostomy tube placement, Gastrostomy placement with jejunal extension, tracheostomy placement (specifically 8 shiley cuffed) Acute hypoxemic respiratory failure, multifactorial. Status post tracheostomy 5 drains Acute gallstone pancreatitis./ Necrosis Acute kidney failure. improving Metabolic toxic encephalopathy. Hyperkalemia.corrected Metabolic / respiratory acidosis Hypocalcemia. Hepatitis B Hypernatremia LLL small effusion, monitor History of Present Illness History of Present Illness [id number] Patient seen and examined in the ICU He remains extremely critically ill Intubated On pressure control 32 with 5 of PEEP 500 tidal volume rate of 20 and 40% FiO2 Sedated On TPN Discussed with RN Chart reviewed [id number] Patient seen and examined in the ICU his is present Discussed with RN Chart reviewed The patient actually open his eyes and tried to look at me? [id number] Patient seen and examined in the ICU He remains intubated and mechanically ventilated Extremely critically ill On TPN Versed Precedex and fentanyl Vent settings before meals/20/500/40% Discussed with shank scourer and RN Chart reviewed [id number] Patient seen and examined in the ICU Currently getting a sponge bath Got a great view of his abdomen He has a total of 7 different drains and/or catheters Still mechanically ventilated Off of pressors Sedated Periodically can open his eyes Still very critically ill Chart reviewed Discussed with RNs [id number] Patient seen and examined in the intensive care unit He remains mechanically ventilated Before meals/20/500/40% Extremely critically ill He has 4 or 5 drains in including GJ tube Discussed with RN Chart reviewed [id number] Patient seen and examined in the ICU He is still mechanically ventilated assist-control//500 with 40% Chart reviewed Discussed with RN He remains very critically ill [id number] Patient seen and examined in the ICU Discussed with general surgeon and he examined the patient with me Patient's is present in his good support for him Currently still intubated and on the vent He is on assist control with 40% oxygen Remains very critically ill Mr Mata is a 49 yo M admitted with severe epigastric pain beginning in the morning of admission. Ultimately diagnosed with gallstone pancreatitis. Hemodialysis catheter placed for renal failure. Arterial blood gas revealed a pH of 7.30, PaCO2 of 31, PaO2 of 75, bicarb was 15. Consulted ID, GI, General surgery, nephrology, pulmonology 06/21: Ex-lap with pancreatic necrosectomy, cholecystectomy, gastrostomy tube lpacement, tracheostomy placement. 06/22 - 06/26: Has 5 abdominal drains plus a Lobato and an NG to suction, intubated, sedated, paralyzed 06/28- 07/02: remain on micafungin, TPN. Trached on vent, sedated, 40% FiO2 07/03: His dialysis catheter and central line were removed. Ventilated via trach and sedated 07/04: Sedated on precedex. ABG reviewed, stable. Vitals stable, drains stable, still requiring ventilation on trach. Hb 7.6. TAG 1170 changed from propofol to versed for sedation 07/06 reposition G-tube. Overnight sedated. Still febrile. More comfortable on versed for sedation. Hb 7, 1u PRBC ordered. plan: Trend CBC Vitals/I&O Vitals/I&O: Vital Signs Date Time Temp Pulse Resp B/P (MAP) Pulse Ox O2 Delivery O2 Flow Rate FiO2 07/14/19 07:00 88 20 165/77 (106) 97 Ventilator 07/14/19 04:00 99.5 99.5 I & O 07/13/19 07/13/19 07/14/19 15:00 23:00 07:00 Intake Total 450 ml Output Total 1420 ml 850 ml 1110 ml Balance -970 ml -850 ml -1110 ml Physical Exam Physical Exam: GENERAL: Sedated, trached/vent, HEENT: Pupils equal reactive - mild icteric NECK: Trach LUNGS: Diminished aeration bases HEART: S1, S2, regular ABDOMEN: Distended, bowel sounds quiet, drains x5, wound vac in place : Lobato in place EXTREMITIES: 1+ edema, no cyanosis. SCDs bilaterally SKIN: Warm, moist. 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 General: Other (eyes open, on sedation ) Heart: Regular rate, Normal S1, Normal S2, No murmurs, Gallops Lungs: Other (decrease bs) Abdomen: Soft, Other (vac, drains in place) Extremities: No clubbing, No cyanosis, No edema, Normal pulses, No tenderness/swelling Skin: No significant lesion Labs Labs: Laboratory Tests Test 07/13/19 11:56 07/13/19 22:49 07/14/19 04:27 07/14/19 08:00 Glucose (Fingerstick) 137 mg/dL (70-99) 135 mg/dL (70-99) 175 mg/dL (70-99) 145 mg/dL (70-99) White Blood Count 12.9 x10^3/uL (4.0-11.0) Red Blood Count 2.80 x10^6/uL (4.30-5.70) Hemoglobin 7.9 g/dL (13.0-17.5) Hematocrit 25.3 % (39.0-53.0) Mean Corpuscular Volume 91 fL (79-100) Mean Corpuscular Hemoglobin 28 pg (25-35) Mean Corpuscular Hemoglobin Concent 31 g/dL (31-37) Red Cell Distribution Width 15.2 % (11.5-14.5) Platelet Count 258 x10^3/uL (140-400) Neutrophils (%) (Auto) 73 % (31-73) Lymphocytes (%) (Auto) 14 % (24-48) Monocytes (%) (Auto) 12 % (0-9) Eosinophils (%) (Auto) 1 % (0-3) Basophils (%) (Auto) 1 % (0-3) Neutrophils # (Auto) 9.4 x10^3/uL (1.8-7.7) Lymphocytes # (Auto) 1.8 x10^3/uL (1.0-4.8) Monocytes # (Auto) 1.5 x10^3/uL (0.0-1.1) Eosinophils # (Auto) 0.1 x10^3/uL (0.0-0.7) Basophils # (Auto) 0.1 x10^3/uL (0.0-0.2) Sodium Level 141 mmol/L (136-145) Potassium Level 4.2 mmol/L (3.5-5.1) Chloride Level 109 mmol/L (98-107) Carbon Dioxide Level 28 mmol/L (21-32) Anion Gap 4 (6-14) Blood Urea Nitrogen 23 mg/dL (8-26) Creatinine 0.9 mg/dL (0.7-1.3) Estimated GFR (Cockcroft-Gault) 108.5 Glucose Level 151 mg/dL (70-99) Calcium Level 8.1 mg/dL (8.5-10.1) Review of Systems Review of Systems: Unable to obtain Assessment and Plan Assessmemt and Plan Problems Medical Problems: (1) Acute pancreatitis Status: Acute (2) Nausea & vomiting Status: Acute Severe pancreatitis with the following surgery: Exploratory laparotomy, pancreatic necrosectomy, cholecystostomy tube placement, Gastrostomy placement with jejunal extension, tracheostomy placement (specifically 8 shiley cuffed) Acute hypoxemic respiratory failure, multifactorial. Status post tracheostomy 5 drains Acute gallstone pancreatitis./ Necrosis Acute kidney failure. improving Metabolic toxic encephalopathy. Hyperkalemia.corrected Metabolic / respiratory acidosis Hypocalcemia. Hepatitis B Hypernatremia LLL small effusion, monitor Plan: Continue ICU monitoring Continue to monitor intraabdominal pressures IV micafungin GEN IV insulin DVT prophylaxis We have a GJ tube and hope to begin feedings into the jejunum eventually For now continue TPN I discussed with case management he has been accepted at the LTAC Dr. Smyth would like to wait till next week for the LTAC and I agree Appreciate subspecialist input Vent weaning if possible IV antibiotics IV paralytics and IV sedatives Trend labs Lobato to bedside drainage Trend labs Daily chest x-ray Wound care We are managing at least 5 abdominal drains He remains critically ill Prognosis extremely guarded at best Total time 35 minutes Comment Review of Relevant I have reviewed the following items alexandra (where applicable) has been applied. Medications: Current Medications Medications (Trade) Dose Ordered Sig/Jesse Route PRN Reason Start Time Stop Time Status Last Admin Dose Admin Midazolam HCl 100 mg/Sodium Chloride 100 ml @ 9 mls/hr CONT PRN IV SEE PROTOCOL 07/13/19 15:00 07/14/19 11:19 Potassium Acetate 15 meq/Potassium Phosphate 15 mmol/ Magnesium Sulfate 10 meq/Calcium Gluconate 10 meq/ Multivitamins 10 ml/Chromium/ Copper/Manganese/ Seleni/Zn 0.5 ml/ Total Parenteral Nutrition/Amino Acids/Dextrose/ Fat Emulsion Intravenous 1,920 ml @ 80 mls/hr TPN CONT IV 07/13/19 22:00 07/14/19 21:59 07/13/19 22:17 Hemodynamically unstable?: No Is patient in severe pain?: No Is NPO status required?: Yes JUSTIN WORKMAN III DO Jul 14, 2019 11:25
--- NOTE | 2019-07-14 11:27 | PDOC ---
Objective: Objective: Reviewed chart. Vital Signs: Vital Signs Date Time Temp Pulse Resp B/P (MAP) Pulse Ox O2 Delivery O2 Flow Rate FiO2 07/14/19 07:00 88 20 165/77 (106) 97 Ventilator 07/14/19 04:00 99.5 99.5 Labs: Laboratory Tests Test 07/13/19 11:56 07/13/19 22:49 07/14/19 04:27 07/14/19 08:00 Glucose (Fingerstick) 137 mg/dL 135 mg/dL 175 mg/dL 145 mg/dL White Blood Count 12.9 x10^3/uL Red Blood Count 2.80 x10^6/uL Hemoglobin 7.9 g/dL Hematocrit 25.3 % Mean Corpuscular Volume 91 fL Mean Corpuscular Hemoglobin 28 pg Mean Corpuscular Hemoglobin Concent 31 g/dL Red Cell Distribution Width 15.2 % Platelet Count 258 x10^3/uL Neutrophils (%) (Auto) 73 % Lymphocytes (%) (Auto) 14 % Monocytes (%) (Auto) 12 % Eosinophils (%) (Auto) 1 % Basophils (%) (Auto) 1 % Neutrophils # (Auto) 9.4 x10^3/uL Lymphocytes # (Auto) 1.8 x10^3/uL Monocytes # (Auto) 1.5 x10^3/uL Eosinophils # (Auto) 0.1 x10^3/uL Basophils # (Auto) 0.1 x10^3/uL Sodium Level 141 mmol/L Potassium Level 4.2 mmol/L Chloride Level 109 mmol/L Carbon Dioxide Level 28 mmol/L Anion Gap 4 Blood Urea Nitrogen 23 mg/dL Creatinine 0.9 mg/dL Estimated GFR (Cockcroft-Gault) 108.5 Glucose Level 151 mg/dL Calcium Level 8.1 mg/dL BLOOD CULTURE Final NO GROWTH AFTER 5 DAYS Imaging: Chest CT 07/10 IMPRESSION: Infiltrates with air bronchograms posterior medially at the right lung base without change. Moderate left pleural effusion with atelectasis or infiltrate at the left lung base without significant change. Continued presence of an enlarged edematous pancreas with inflammatory changes in the mesentery consistent with history of necrotic pancreatitis and showing some mild improvement. Continued presence of drainage tubes in the upper abdomen with no significant fluid collections surrounding the tips of these tubes. There is however still some free fluid present in the abdomen abdomen. Soft tissue process anteriorly within the cardiac fat pad which appears slightly more prominent than on previous examination and may reflect an inflammatory process. CXR 07/10 Impression: 1. Low lung volumes with increased patchy opacity may relate to worsening atelectasis. 2. Small left pleural effusion status post thoracentesis. No pneumothorax. Thoracentesis 07/10 report pending PE: GEN: NAD HEENT: trach/vent HEART: RRR ABD: distended NEURO/PSYCH: sedated A/P: S/p pancreatic necrosectomy, MOSF, fever -- Continue same. Hemodynamically unstable?: No Is patient in severe pain?: No Is NPO status required?: Yes PAXTON ALEXANDER Jul 14, 2019 11:27
[2019-07-14] MEDS: ALBUTEROL SULFATE 2.5 MG/3 ML NEBU. NEB SCH ×4 (11:33→20:24)
[2019-07-14] MEDS: TPN PER PHARMACY MC PRN (13:39)
[2019-07-14] MEDS: FUROSEMIDE 40 MG/4 ML VIAL. IVP SCH (14:19)
--- NOTE | 2019-07-14 14:21 | NUR ---
Pharmacy TPN Dosing Note S: CHRISTOPHER NEWSOME is a 49 year old M Currently receiving Central Continuous TPN started 06/19/19 B:Pertinent PMH: PANCREATITIS Height: 5 feet, 9 inches Weight: 104.085443 kg Current diet: NPO LABS: Sodium: 141 Potassium: 4.2 Chloride: 109 Calcium: 8.1 Corrected Calcium: 10.50 Magnesium: 1.8 CO2: 27 SCr: 0.9 Glucose: 151 Albumin: 1.0 AST: 46 ALT: 48 TPN FORMULA: TPN TYPE: Central Continuous AMINO ACIDS: 145 gm DEXTROSE: 285 gm LIPIDS: 20 gm SODIUM CHLORIDE: mEq SODIUM ACETATE: mEq SODIUM PHOSPHATE: - mmol POTASSIUM CHLORIDE: mEq POTASSIUM ACETATE: 15 mEq POTASSIUM PHOSPHATE: 15 mmol MAGNESIUM: 10 mEq CALCIUM: 10 mEq INSULIN: - units MULTIPLE VITAMIN: 10 ml TRACE ELEMENTS: 0.5 ml(s) TPN PLAN: Electrolytes WNL and stable, no changes in TPN. . R: Continue TPN AT SAME RATE Will monitor electrolytes, glucose, and tolerance to TPN. JOSE CORRIGAN [facility], 07/14/19 [id number]
--- NOTE | 2019-07-14 16:22 | NUR ---
SS following up with discharge planning. Pt accepted at [facility], ; fax [phone]. SS phoned and faxed clinical updates to [facility]. SS currently awaiting surgery to sign off. SS will continue to follow for discharge planning.
[2019-07-14] MEDS ORDERED: AMINO ACID IV SCH ×9 (22:00)
[2019-07-14] MEDS ORDERED: [UNRECOGNIZED DRUG - OTHER] IV SCH ×9 (22:00)
[2019-07-14] MEDS ORDERED: TOTAL PARENTERAL NUTRITION IV SCH ×9 (22:00)
[2019-07-14] MEDS ORDERED: DEXTROSE 70% IV SCH ×9 (22:00)
[2019-07-15] VITALS (30 sets, daily range): BP systolic 91–244; BP diastolic 48–121
[2019-07-15] MEDS: INSULIN LISPRO 300 UNITS/3 ML VIAL. SQ SCH ×4 (00:26→17:04)
[2019-07-15] MEDS: DEXMEDETOMIDINE 400 MCG in IV NORMAL SALINE 100ML 96 ML IV PRN ×5 (01:45→21:02)
[2019-07-15] MEDS: MIDAZOLAM HCL 100 MG in IV NORMAL SALINE 100ML 100 ML IV PRN ×3 (04:42→22:11)
[2019-07-15] MEDS: PANTOPRAZOLE IV PUSH 40 MG VIAL. IVP SCH ×2 (05:39→17:06)
[2019-07-15] MEDS: ENOXAPARIN 40 MG/0.4 ML SYRINGE. SQ SCH (05:40)
[2019-07-15] MEDS: CEFEPIME HCL IV Push 2 GM VIAL. IVP SCH ×3 (05:40→22:14)
[2019-07-15 06:05] LABS: MAGNESIUM 1.6 mg/dL (1.8-2.4); PHOSPHORUS 2.5 mg/dL (2.6-4.7)
[2019-07-15] MEDS: hydrALAZINE 20 MG/ML VIAL. IVP PRN ×2 (07:14→07:33)
[2019-07-15] MEDS: FUROSEMIDE 40 MG/4 ML VIAL. IVP SCH (07:21)
[2019-07-15] MEDS: HYDROmorphone 2 MG/ML VIAL IV PRN ×2 (07:32→07:36)
[2019-07-15] MEDS: NALOXONE 0.4 MG/ML VIAL. IV PRN ×2 (07:51→07:58)
[2019-07-15] MEDS: ALBUTEROL SULFATE 2.5 MG/3 ML NEBU. NEB SCH ×4 (08:00→20:14)
[2019-07-15] MEDS: INSULIN GLARGINE SYRINGE. SQ SCH ×2 (08:42→21:07)
--- NOTE | 2019-07-15 08:45 | PDOC ---
Infectious Disease Note Subjective Subjective Trach/vent FiO2 40% Sedated TPN ROS ROS no n/v/d/ Vital Sign Vital Signs Vital Signs Date Time Temp Pulse Resp B/P (MAP) Pulse Ox O2 Delivery O2 Flow Rate FiO2 07/15/19 08:32 100 V60 07/15/19 07:36 45 07/15/19 07:33 170 244/107 07/15/19 04:00 98.2 98.2 Physical Exam PHYSICAL EXAM GENERAL: Sedated, trached/vent, HEENT: Pupils equal reactive - mild icteric NECK: Trach LUNGS: Diminished aeration bases HEART: S1, S2, regular ABDOMEN: Distended, bowel sounds quiet, drains x5, wound vac in place : Lobato in place EXTREMITIES: 1+ edema, no cyanosis. SCDs bilaterally SKIN: Warm, moist. 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 Labs Lab Laboratory Tests Test 07/14/19 14:40 07/15/19 00:23 07/15/19 05:00 07/15/19 05:45 Glucose (Fingerstick) 169 mg/dL (70-99) 230 mg/dL (70-99) 158 mg/dL (70-99) Sodium Level 141 mmol/L (136-145) Potassium Level 4.3 mmol/L (3.5-5.1) Chloride Level 108 mmol/L (98-107) Carbon Dioxide Level 26 mmol/L (21-32) Anion Gap 7 (6-14) Blood Urea Nitrogen 24 mg/dL (8-26) Creatinine 0.9 mg/dL (0.7-1.3) Estimated GFR (Cockcroft-Gault) 108.5 Glucose Level 179 mg/dL (70-99) Calcium Level 8.2 mg/dL (8.5-10.1) Phosphorus Level 2.5 mg/dL (2.6-4.7) Magnesium Level 1.6 mg/dL (1.8-2.4) Micro Microbiology 06/20/19 Blood Culture - Preliminary, Resulted NO GROWTH AFTER 2 DAYS Objective Assessment Fever - ? ileus/pancreatitis/abd distension/pleural effusion/occlusive clot in cephalic - blood cults 07/05 - neg - lines chg'd 07/06 LIJ Leukocytosis - better - ? reactive given procedure 07/06, better Left pleural effusion s/p thoracentesis, 07/10 - PH 7.34, nucleated cells 1580, RBC 26105. glu 149,TP 3.2, LDH 269. cultures pending Gallbladder stone pancreatitis s/p expl lap, pancreatic necrosectomy, cholecystostomy tube placement, G-tube placement with jejunal extension, 06/21 -gastrostomy tube repositioned by IR 07/03; s/p Jejunostomy placement 07/06 per nursing, no report Intra-abd fluid collections Sepsis from GI - cult neg Acute Resp failure - s/p trach 06/21, vent dependent Lactic acidosis. Acute kidney injury previously requiring dialysis - now with improved UOP, HDC now out Metabolic acidosis. Hypocalcemia Right arm swelling, + occlusive thrombosis within the cephalic vein, no DVT on US Yeast in sputum from 07/03 likely represents colonization - was on antifungal when collected Anemia s/p PRBCs 07/05 Plan Plan of Care Continue cefepime/Flagyl (07/05) and Zyvox (for lung penetration) Consider Repeat CT scan Abd/pel Cultures neg Maintain aspiration precaution. Gen surgery following D/w nursing Critically ill KRISTIAN GOODMAN MD Jul 15, 2019 08:45
--- NOTE | 2019-07-15 08:47 | RAD ---
EXAM: CHEST AP ONLY INDICATION: Intubated. TECHNIQUE: Single AP view COMPARISON: 07/11/2019 chest x-ray FINDINGS: Tracheostomy tube is attached to a ventilator tubing. Left jugular approach central venous catheter remains present with the tip near the cavoatrial junction. The heart size is normal. The great vessels appear unremarkable. There is no hilar or mediastinal mass. Lungs are hypoventilatory and show hazy opacity at the left lung base. No pneumothorax. Small left pleural effusion. There are no significant osseous abnormalities. IMPRESSION: Hypoventilatory chest showing lines and tubes as described in apparent satisfactory position with residual left basilar consolidation/atelectasis and small left pleural effusion. Electronically signed by: Eda Sargent MD (07/15/2019 8:44 AM) [id number]
--- NOTE | 2019-07-15 09:16 | PDOC ---
Objective: Objective: D/w nurse - battling tachycardia, tachypnea, HTN. Vital Signs: Vital Signs Date Time Temp Pulse Resp B/P (MAP) Pulse Ox O2 Delivery O2 Flow Rate FiO2 07/15/19 08:32 100 V60 07/15/19 07:36 45 07/15/19 07:33 170 244/107 07/15/19 04:00 98.2 98.2 Labs: Laboratory Tests Test 07/14/19 14:40 07/15/19 00:23 07/15/19 05:00 07/15/19 05:45 Glucose (Fingerstick) 169 mg/dL 230 mg/dL 158 mg/dL Sodium Level 141 mmol/L Potassium Level 4.3 mmol/L Chloride Level 108 mmol/L Carbon Dioxide Level 26 mmol/L Anion Gap 7 Blood Urea Nitrogen 24 mg/dL Creatinine 0.9 mg/dL Estimated GFR (Cockcroft-Gault) 108.5 Glucose Level 179 mg/dL Calcium Level 8.2 mg/dL Phosphorus Level 2.5 mg/dL Magnesium Level 1.6 mg/dL Imaging: CXR 07/14 IMPRESSION: Hypoventilatory chest showing lines and tubes as described in apparent satisfactory position with residual left basilar consolidation/atelectasis and small left pleural effusion. PE: GEN: NAD LUNGS: CTAB HEART: RRR ABD: NABS, S/ND/NT NEURO/PSYCH: A & O 3 A/P: S/p pancreatic necrosectomy, MOSF -- Issues today as above, other per Dr. Coker. Hemodynamically unstable?: No Is patient in severe pain?: No Is NPO status required?: Yes PAXTON ALEXANDER Jul 15, 2019 09:16
[2019-07-15 09:20] LABS: BASE EXCESS ABG -2 mmol/L (-3-3); CORRECTED PCO2 ABG 43 mmHg; CORRECTED PH ABG 7.36; CORRECTED PO2 ABG 105 mmHg; HCO3 ABG 23 mmol/L (21-28); PCO2 ABG 41 mmHg (35-46); PO2 ABG 97 mmHg (75-108); SAT O2 ABG 97 % (92-99)
[2019-07-15 09:39] LABS: FIO2 ABG 40
--- NOTE | 2019-07-15 10:00 | PDOC ---
SURGICAL PROGRESS NOTE Subjective trach, opens eyes family present tachy, tachypnea Vital Signs Vital Signs Date Time Temp Pulse Resp B/P (MAP) Pulse Ox O2 Delivery O2 Flow Rate FiO2 07/15/19 08:32 100 V60 07/15/19 07:36 45 07/15/19 07:33 170 244/107 07/15/19 04:00 98.2 98.2 I&O Intake and Output 07/15/19 07:00 Intake Total 1715 ml Output Total 3855 ml Balance -2140 ml Intake Oral 0 ml IV Total 1715 ml Output Urine Total 2940 ml Drainage Total 915 ml PATIENT HAS A LEPE: Yes HEENT: Other (trach intact ) Abdomen: Soft, Other (drains in place) Labs Laboratory Tests Test 07/13/19 11:56 07/13/19 22:49 07/14/19 04:27 07/14/19 08:00 Glucose (Fingerstick) 137 mg/dL (70-99) 135 mg/dL (70-99) 175 mg/dL (70-99) 145 mg/dL (70-99) White Blood Count 12.9 x10^3/uL (4.0-11.0) Red Blood Count 2.80 x10^6/uL (4.30-5.70) Hemoglobin 7.9 g/dL (13.0-17.5) Hematocrit 25.3 % (39.0-53.0) Mean Corpuscular Volume 91 fL (79-100) Mean Corpuscular Hemoglobin 28 pg (25-35) Mean Corpuscular Hemoglobin Concent 31 g/dL (31-37) Red Cell Distribution Width 15.2 % (11.5-14.5) Platelet Count 258 x10^3/uL (140-400) Neutrophils (%) (Auto) 73 % (31-73) Lymphocytes (%) (Auto) 14 % (24-48) Monocytes (%) (Auto) 12 % (0-9) Eosinophils (%) (Auto) 1 % (0-3) Basophils (%) (Auto) 1 % (0-3) Neutrophils # (Auto) 9.4 x10^3/uL (1.8-7.7) Lymphocytes # (Auto) 1.8 x10^3/uL (1.0-4.8) Monocytes # (Auto) 1.5 x10^3/uL (0.0-1.1) Eosinophils # (Auto) 0.1 x10^3/uL (0.0-0.7) Basophils # (Auto) 0.1 x10^3/uL (0.0-0.2) Sodium Level 141 mmol/L (136-145) Potassium Level 4.2 mmol/L (3.5-5.1) Chloride Level 109 mmol/L (98-107) Carbon Dioxide Level 28 mmol/L (21-32) Anion Gap 4 (6-14) Blood Urea Nitrogen 23 mg/dL (8-26) Creatinine 0.9 mg/dL (0.7-1.3) Estimated GFR (Cockcroft-Gault) 108.5 Glucose Level 151 mg/dL (70-99) Calcium Level 8.1 mg/dL (8.5-10.1) Test 07/14/19 14:40 07/15/19 00:23 07/15/19 05:00 07/15/19 05:45 Glucose (Fingerstick) 169 mg/dL (70-99) 230 mg/dL (70-99) 158 mg/dL (70-99) Sodium Level 141 mmol/L (136-145) Potassium Level 4.3 mmol/L (3.5-5.1) Chloride Level 108 mmol/L (98-107) Carbon Dioxide Level 26 mmol/L (21-32) Anion Gap 7 (6-14) Blood Urea Nitrogen 24 mg/dL (8-26) Creatinine 0.9 mg/dL (0.7-1.3) Estimated GFR (Cockcroft-Gault) 108.5 Glucose Level 179 mg/dL (70-99) Calcium Level 8.2 mg/dL (8.5-10.1) Phosphorus Level 2.5 mg/dL (2.6-4.7) Magnesium Level 1.6 mg/dL (1.8-2.4) Test 07/15/19 08:00 O2 Saturation 97 % (92-99) Arterial Blood pH 7.38 (7.35-7.45) Arterial Blood pH (Temp corrected) 7.36 Arterial Blood pCO2 at Patient Temp 41 mmHg (35-46) Arterial Blood pCO2 (Temp correct) 43 mmHg Arterial Blood pO2 at Patient Temp 97 mmHg (75-108) Arterial Blood pO2 (Temp corrected) 105 mmHg Arterial Blood HCO3 23 mmol/L (21-28) Arterial Blood Base Excess -2 mmol/L (-3-3) FiO2 40 Laboratory Tests Test 07/14/19 14:40 07/15/19 00:23 07/15/19 05:00 07/15/19 05:45 Glucose (Fingerstick) 169 mg/dL (70-99) 230 mg/dL (70-99) 158 mg/dL (70-99) Sodium Level 141 mmol/L (136-145) Potassium Level 4.3 mmol/L (3.5-5.1) Chloride Level 108 mmol/L (98-107) Carbon Dioxide Level 26 mmol/L (21-32) Anion Gap 7 (6-14) Blood Urea Nitrogen 24 mg/dL (8-26) Creatinine 0.9 mg/dL (0.7-1.3) Estimated GFR (Cockcroft-Gault) 108.5 Glucose Level 179 mg/dL (70-99) Calcium Level 8.2 mg/dL (8.5-10.1) Phosphorus Level 2.5 mg/dL (2.6-4.7) Magnesium Level 1.6 mg/dL (1.8-2.4) Test 07/15/19 08:00 O2 Saturation 97 % (92-99) Arterial Blood pH 7.38 (7.35-7.45) Arterial Blood pH (Temp corrected) 7.36 Arterial Blood pCO2 at Patient Temp 41 mmHg (35-46) Arterial Blood pCO2 (Temp correct) 43 mmHg Arterial Blood pO2 at Patient Temp 97 mmHg (75-108) Arterial Blood pO2 (Temp corrected) 105 mmHg Arterial Blood HCO3 23 mmol/L (21-28) Arterial Blood Base Excess -2 mmol/L (-3-3) FiO2 40 Problem List Problems Medical Problems: (1) Acute pancreatitis Status: Acute (2) Nausea & vomiting Status: Acute Assessment/Plan supportive care will review with MAXIMILIANO Kimble APRN Jul 15, 2019 10:00
--- NOTE | 2019-07-15 10:17 | PDOC ---
PULMONARY PROGRESS NOTES Subjective Hemodynamically stable, currently on AVAPS respirator had increase R/R this am Vitals Vital Signs Date Time Temp Pulse Resp B/P (MAP) Pulse Ox O2 Delivery O2 Flow Rate FiO2 07/15/19 08:32 100 V60 07/15/19 07:36 45 07/15/19 07:33 170 244/107 07/15/19 04:00 98.2 98.2 Comments Virtual exam done via telemedicine increase R/R restless tachycardic, increase BP distended abdomen some leg edema Labs Laboratory Tests Test 07/13/19 11:56 07/13/19 22:49 07/14/19 04:27 07/14/19 08:00 Glucose (Fingerstick) 137 mg/dL (70-99) 135 mg/dL (70-99) 175 mg/dL (70-99) 145 mg/dL (70-99) White Blood Count 12.9 x10^3/uL (4.0-11.0) Red Blood Count 2.80 x10^6/uL (4.30-5.70) Hemoglobin 7.9 g/dL (13.0-17.5) Hematocrit 25.3 % (39.0-53.0) Mean Corpuscular Volume 91 fL (79-100) Mean Corpuscular Hemoglobin 28 pg (25-35) Mean Corpuscular Hemoglobin Concent 31 g/dL (31-37) Red Cell Distribution Width 15.2 % (11.5-14.5) Platelet Count 258 x10^3/uL (140-400) Neutrophils (%) (Auto) 73 % (31-73) Lymphocytes (%) (Auto) 14 % (24-48) Monocytes (%) (Auto) 12 % (0-9) Eosinophils (%) (Auto) 1 % (0-3) Basophils (%) (Auto) 1 % (0-3) Neutrophils # (Auto) 9.4 x10^3/uL (1.8-7.7) Lymphocytes # (Auto) 1.8 x10^3/uL (1.0-4.8) Monocytes # (Auto) 1.5 x10^3/uL (0.0-1.1) Eosinophils # (Auto) 0.1 x10^3/uL (0.0-0.7) Basophils # (Auto) 0.1 x10^3/uL (0.0-0.2) Sodium Level 141 mmol/L (136-145) Potassium Level 4.2 mmol/L (3.5-5.1) Chloride Level 109 mmol/L (98-107) Carbon Dioxide Level 28 mmol/L (21-32) Anion Gap 4 (6-14) Blood Urea Nitrogen 23 mg/dL (8-26) Creatinine 0.9 mg/dL (0.7-1.3) Estimated GFR (Cockcroft-Gault) 108.5 Glucose Level 151 mg/dL (70-99) Calcium Level 8.1 mg/dL (8.5-10.1) Test 07/14/19 14:40 07/15/19 00:23 07/15/19 05:00 07/15/19 05:45 Glucose (Fingerstick) 169 mg/dL (70-99) 230 mg/dL (70-99) 158 mg/dL (70-99) Sodium Level 141 mmol/L (136-145) Potassium Level 4.3 mmol/L (3.5-5.1) Chloride Level 108 mmol/L (98-107) Carbon Dioxide Level 26 mmol/L (21-32) Anion Gap 7 (6-14) Blood Urea Nitrogen 24 mg/dL (8-26) Creatinine 0.9 mg/dL (0.7-1.3) Estimated GFR (Cockcroft-Gault) 108.5 Glucose Level 179 mg/dL (70-99) Calcium Level 8.2 mg/dL (8.5-10.1) Phosphorus Level 2.5 mg/dL (2.6-4.7) Magnesium Level 1.6 mg/dL (1.8-2.4) Test 07/15/19 08:00 O2 Saturation 97 % (92-99) Arterial Blood pH 7.38 (7.35-7.45) Arterial Blood pH (Temp corrected) 7.36 Arterial Blood pCO2 at Patient Temp 41 mmHg (35-46) Arterial Blood pCO2 (Temp correct) 43 mmHg Arterial Blood pO2 at Patient Temp 97 mmHg (75-108) Arterial Blood pO2 (Temp corrected) 105 mmHg Arterial Blood HCO3 23 mmol/L (21-28) Arterial Blood Base Excess -2 mmol/L (-3-3) FiO2 40 Laboratory Tests Test 07/14/19 14:40 07/15/19 00:23 07/15/19 05:00 07/15/19 05:45 Glucose (Fingerstick) 169 mg/dL (70-99) 230 mg/dL (70-99) 158 mg/dL (70-99) Sodium Level 141 mmol/L (136-145) Potassium Level 4.3 mmol/L (3.5-5.1) Chloride Level 108 mmol/L (98-107) Carbon Dioxide Level 26 mmol/L (21-32) Anion Gap 7 (6-14) Blood Urea Nitrogen 24 mg/dL (8-26) Creatinine 0.9 mg/dL (0.7-1.3) Estimated GFR (Cockcroft-Gault) 108.5 Glucose Level 179 mg/dL (70-99) Calcium Level 8.2 mg/dL (8.5-10.1) Phosphorus Level 2.5 mg/dL (2.6-4.7) Magnesium Level 1.6 mg/dL (1.8-2.4) Test 07/15/19 08:00 O2 Saturation 97 % (92-99) Arterial Blood pH 7.38 (7.35-7.45) Arterial Blood pH (Temp corrected) 7.36 Arterial Blood pCO2 at Patient Temp 41 mmHg (35-46) Arterial Blood pCO2 (Temp correct) 43 mmHg Arterial Blood pO2 at Patient Temp 97 mmHg (75-108) Arterial Blood pO2 (Temp corrected) 105 mmHg Arterial Blood HCO3 23 mmol/L (21-28) Arterial Blood Base Excess -2 mmol/L (-3-3) FiO2 40 Medications Active Scripts Medications Dose Route/Sig Max Daily Dose Days Date Category Comments cxr 07/14 reviewed poor insp effort Left basal effusion/ atelectasis CT chest IMPRESSION: Infiltrates with air bronchograms posterior medially at the right lung base without change. Moderate left pleural effusion with atelectasis or infiltrate at the left lung base without significant change. Continued presence of an enlarged edematous pancreas with inflammatory changes in the mesentery consistent with history of necrotic pancreatitis and showing some mild improvement. Continued presence of drainage tubes in the upper abdomen with no significant fluid collections surrounding the tips of these tubes. There is however still some free fluid present in the abdomen abdomen. Soft tissue process anteriorly within the cardiac fat pad which appears slightly more prominent than on previous examination and may reflect an inflammatory process. Impression . IMPRESSION: 1. Acute hypoxemic respiratory failure, multifactorial, 2. Acute gallstone pancreatitis./ Necrosis. s/p Exploratory laparotomy, pancreatic necrosectomy, cholecystostomy tube placement, Gastrostomy placement with jejunal extension, tracheostomy placement (specifically 8 shiley cuffed) / 3. Acute kidney failure. improving 4. Metabolic toxic encephalopathy. 5. Hyperkalemia.corrected 6. Metabolic / respiratory acidosis 7. Hypocalcemia. 8. POSSIBLE ABD COMPARTMENT SYNDROME , s/p Exp lap 9. HEP B S POSITIVE 10. Hypernatremia, resolved 11. LLL small effusion, monitor 12. FEVER PER ID, improvement afebrile the last 48 hours 13. Occlusive thrombus within the cephalic vein no DVT on ultrasound ri Repeat CT Infiltrates with air bronchograms posterior medially at the right lung base without change. Moderate left pleural effusion with atelectasis or infiltrate at the left lung base without significant change. Continued presence of an enlarged edematous pancreas with inflammatory changes in the mesentery consistent with history of necrotic pancreatitis and showing some mild improvement. Continued presence of drainage tubes in the upper abdomen with no significant fluid collections surrounding the tips of these tubes. There is however still some free fluid present in the abdomen abdomen. Soft tissue process anteriorly within the cardiac fat pad which appears slightly more prominent than on previous examination and may reflect an inflammatory process. ID note, July 12 Plan of Care Continue dapto, cefepime/Flagyl (07/05) and Zyvox (for lung penetration) Consider Repeat CT scan Abd/pel Cultures neg Maintain aspiration precaution. Gen surgery following Plan . Contine AVAPS at current settings needs PRN Paralytics continue current sedation/ narcotics Antibiotics per ID Possible repeat CT abdomen, will defer to ID and surgery Not ready for spontaneous trial Follow surgery input Nutrition per TPN Continue current antibiotics per ID DVT GI prophylaxis Case discussed with RN Total cumulative critical care time of 30 minutes reviewing data, labs, x-ray, adjusting ventilator TAYA PEREIRA MD Jul 15, 2019 10:17
[2019-07-15 10:30] LABS: ALBUMIN 1.1 g/dL (3.4-5.0); ALBUMIN/GLOBULIN RATIO 0.2 (1.0-1.7); CALCIUM 8.2 mg/dL (8.5-10.1); CREATININE 0.9 mg/dL (0.7-1.3); GFR 108.5; TOTAL BILIRUBIN 2.3 mg/dL (0.2-1.0); TOTAL PROTEIN 6.4 g/dL (6.4-8.2)
[2019-07-15 10:34] LABS: POTASSIUM 4.3 mmol/L (3.5-5.1)
[2019-07-15 10:38] LABS: HEMATOCRIT 24.1 % (39.0-53.0); HEMOGLOBIN 7.5 g/dL (13.0-17.5); RED BLOOD COUNT 2.64 x10^6/uL (4.30-5.70); RED CELL DISTRIBUTION WIDTH 15.6 % (11.5-14.5); WHITE BLOOD COUNT 10.4 x10^3/uL (4.0-11.0)
--- NOTE | 2019-07-15 10:46 | RAD ---
Ultrasound-guided left-sided thoracentesis 07/15/2019 8:42 AM Indication: fluid on xray Procedure: Informed consent was obtained. A timeout procedure was performed. Sonographic evaluation of the left chest was performed demonstrating moderate pleural effusion. The left posterior chest was prepped and draped in sterile fashion. 1% lidocaine without epinephrine was administered for local anesthesia. Real-time ultrasonographic guidance was used in passing a 5 [place] Yueh catheter into the left pleural space . 600 cc of serosanguineous pleural fluid was removed. Samples of fluid were sent to the lab for further evaluation per ordering physician request. The catheter was removed and pressure held to achieve hemostasis. A sterile dressing was applied. No immediate complications were identified. The patient tolerated the procedure well. Impression: Left sided ultrasound-guided thoracentesis
--- NOTE | 2019-07-15 12:29 | PDOC ---
NOEL ADHIKARI [employer] 07/15/19 1229: CARDIO Progress Notes Date and Time Date of Service 07/15/2019 Time of Evaluation 0930 Subjective Subjective: Other (intubated/sedated) Vitals Vitals Vital Signs Date Time Temp Pulse Resp B/P (MAP) Pulse Ox O2 Delivery O2 Flow Rate FiO2 07/15/19 12:02 100 V60 AVAPS 07/15/19 07:36 45 07/15/19 07:33 170 244/107 07/15/19 04:00 98.2 98.2 Weight Weight [ ] Input and Output Intake and Output Intake and Output 07/15/19 07:00 Intake Total 1715 ml Output Total 3855 ml Balance -2140 ml Intake Oral 0 ml IV Total 1715 ml Output Urine Total 2940 ml Drainage Total 915 ml Laboratory Labs Laboratory Tests Test 07/14/19 14:40 07/15/19 00:23 07/15/19 05:00 07/15/19 05:45 Glucose (Fingerstick) 169 mg/dL (70-99) 230 mg/dL (70-99) 158 mg/dL (70-99) White Blood Count 10.4 x10^3/uL (4.0-11.0) Red Blood Count 2.64 x10^6/uL (4.30-5.70) Hemoglobin 7.5 g/dL (13.0-17.5) Hematocrit 24.1 % (39.0-53.0) Mean Corpuscular Volume 91 fL (79-100) Mean Corpuscular Hemoglobin 29 pg (25-35) Mean Corpuscular Hemoglobin Concent 31 g/dL (31-37) Red Cell Distribution Width 15.6 % (11.5-14.5) Platelet Count 267 x10^3/uL (140-400) Sodium Level 141 mmol/L (136-145) Potassium Level 4.3 mmol/L (3.5-5.1) Chloride Level 108 mmol/L (98-107) Carbon Dioxide Level 26 mmol/L (21-32) Anion Gap 7 (6-14) Blood Urea Nitrogen 24 mg/dL (8-26) Creatinine 0.9 mg/dL (0.7-1.3) Estimated GFR (Cockcroft-Gault) 108.5 BUN/Creatinine Ratio 27 (6-20) Glucose Level 179 mg/dL (70-99) Calcium Level 8.2 mg/dL (8.5-10.1) Phosphorus Level 2.5 mg/dL (2.6-4.7) Magnesium Level 1.6 mg/dL (1.8-2.4) Total Bilirubin 2.3 mg/dL (0.2-1.0) Aspartate Amino Transf (AST/SGOT) 58 U/L (15-37) Alanine Aminotransferase (ALT/SGPT) 45 U/L (16-63) Alkaline Phosphatase 244 U/L (46-116) Total Protein 6.4 g/dL (6.4-8.2) Albumin 1.1 g/dL (3.4-5.0) Albumin/Globulin Ratio 0.2 (1.0-1.7) Test 07/15/19 08:00 O2 Saturation 97 % (92-99) Arterial Blood pH 7.38 (7.35-7.45) Arterial Blood pH (Temp corrected) 7.36 Arterial Blood pCO2 at Patient Temp 41 mmHg (35-46) Arterial Blood pCO2 (Temp correct) 43 mmHg Arterial Blood pO2 at Patient Temp 97 mmHg (75-108) Arterial Blood pO2 (Temp corrected) 105 mmHg Arterial Blood HCO3 23 mmol/L (21-28) Arterial Blood Base Excess -2 mmol/L (-3-3) FiO2 40 Microbiology Micro Microbiology 07/06/19 Blood Culture - Final, Complete NO GROWTH AFTER 5 DAYS 07/04/19 - Final, Complete 07/04/19 - Final, Complete 07/04/19 - Final, Complete 07/04/19 Gram Stain Evaluation - Final, Complete 07/04/19 Sputum Culture - Final, Complete 07/04/19 Sputum Result 1 - Final, Complete 07/03/19 Aerobic Culture - Final, Complete 07/03/19 Aerobic Culture Result 1 (CARINE) - Final, Complete 07/03/19 Gram Stain - Final, Complete 07/03/19 Gram Stain Result 1 (CARINE) - Final, Complete 07/03/19 Gram Stain Result 2 (CARINE) - Final, Complete 06/22/19 AFB Specimen Processing Tissue - Final, Resulted 06/22/19 Acid Fast Bacilli Culture, Resulted Pending 06/22/19 Gram Stain - Final, Resulted 06/22/19 Fungal Culture - Preliminary, Resulted 06/22/19 Fungal Culture Result 1 - Preliminary, Resulted Review of Systems Constitutional: yes: unresponsive Physical Exam HEENT: Neck Supple W Full Motion Chest: Symmetric LUNGS: Other (mechanical vent ) Heart: RRR (sinus tach), other (distant heart tones ) Abdomen: Other (distended, firm) Extremities: Other (1+ bilateral LE pitting edema) Neurology: other (sedated) Assessment Assessment 1. PSVT: reactive currently sinus tach at 110s EF and WM nml 2. Accelerated HTN: associated with restlessness and tachypnea 3. Acute diastolic CHF 4. S/P Pancreatic Necrosectomy with gallstone pancreatitis 5. Acute respiratory failure: remains intubated 6. Anemia: Hgb 7.5 7. Severe protein malnutrition Recommendations 1. Agree with lasix therapy.. Replace Mg 2. Metoprolol IV PRN for sustained tachyarrhythmias. Precedex in place 3. Treat with labetolol or hydralazine IV PRN if BP is consistently elevated. GHASSAN STEVENS MD 07/15/19 1418: CARDIO Progress Notes Plan Plan Patient seen and examined. Agree with above nurse practitioner note. No significant changes from a cardiac perspective. He remains tachycardic due to other underlying comorbid conditions. Supportive care. NOEL ADHIKARI APRN Jul 15, 2019 12:29 GHASSAN STEVENS MD Jul 15, 2019 14:18
[2019-07-15] MEDS ORDERED: METOPROLOL TARTRATE 5 MG/5 ML VIAL. IVP PRN (12:30)
[2019-07-15] MEDS: TPN PER PHARMACY MC PRN (13:08)
--- NOTE | 2019-07-15 13:10 | NUR ---
Pharmacy TPN Dosing Note S: CHRISTOPHER NEWSOME is a 49 year old M Currently receiving Central Continuous TPN started 06/19/19 B:Pertinent PMH: PANCREATITIS Height: 5 feet, 9 inches Weight: 106.0 kg Current diet: NPO LABS: Sodium: 141 Potassium: 4.3 Chloride: 108 Calcium: 8.2 Corrected Calcium: 10.52 Magnesium: 1.6 CO2: 26 SCr: 0.9 Glucose: 179 Albumin: 1.1 AST: 58 ALT: 45 TPN FORMULA: TPN TYPE: Central Continuous AMINO ACIDS: 145 gm DEXTROSE: 285 gm LIPIDS: 20 gm POTASSIUM ACETATE: 15 mEq POTASSIUM PHOSPHATE: 18 mmol MAGNESIUM: 15 mEq CALCIUM: 10 mEq MULTIPLE VITAMIN: 10 ml TRACE ELEMENTS: 0.5 ml(s) TPN PLAN: Magnesium 1.6- replaced with MagSul 2 gm IVPB x 1 dose. Phosphorous 2.5 today. Increased Magnesium in TPN to 15 meq and KPhos to 18 mmol. Cont remaining TPN the same. -BMP, Mag and Phos labs in the AM. R: Change TPN as noted above. Will monitor electrolytes, glucose, and tolerance to TPN. JULIA SALGADO [facility], 07/15/19 1313
--- NOTE | 2019-07-15 13:49 | PDOC ---
[facility] PROGRESS NOTE Chief Complaint Chief Complaint Severe pancreatitis with the following surgery: Exploratory laparotomy, pancreatic necrosectomy, cholecystostomy tube placement, Gastrostomy placement with jejunal extension, tracheostomy placement (specifically 8 shiley cuffed) Acute hypoxemic respiratory failure, multifactorial. Status post tracheostomy 5 drains Acute gallstone pancreatitis./ Necrosis Acute kidney failure. improving Metabolic toxic encephalopathy. Hyperkalemia.corrected Metabolic / respiratory acidosis Hypocalcemia. Hepatitis B Hypernatremia LLL small effusion, monitor History of Present Illness History of Present Illness [id number] Patient seen and examined in the ICU He remains critically ill on the vent He is on pressure control 32/5 with 40% FiO2 His Deacon is present Chart reviewed Discussed with RN He is extremely critically ill and I'm concerned about his long-term prognosis [id number] Patient seen and examined in the ICU He remains extremely critically ill Intubated On pressure control 32 with 5 of PEEP 500 tidal volume rate of 20 and 40% FiO2 Sedated On TPN Discussed with RN Chart reviewed [id number] Patient seen and examined in the ICU his is present Discussed with RN Chart reviewed The patient actually open his eyes and tried to look at me? [id number] Patient seen and examined in the ICU He remains intubated and mechanically ventilated Extremely critically ill On TPN Versed Precedex and fentanyl Vent settings before meals/20/500/40% Discussed with vision rehabilitation therapist and RN Chart reviewed [id number] Patient seen and examined in the ICU Currently getting a sponge bath Got a great view of his abdomen He has a total of 7 different drains and/or catheters Still mechanically ventilated Off of pressors Sedated Periodically can open his eyes Still very critically ill Chart reviewed Discussed with RNs [id number] Patient seen and examined in the intensive care unit He remains mechanically ventilated Before meals/20/500/40% Extremely critically ill He has 4 or 5 drains in including GJ tube Discussed with RN Chart reviewed [id number] Patient seen and examined in the ICU He is still mechanically ventilated assist-control/20/500 with 40% Chart reviewed Discussed with RN He remains very critically ill [id number] Patient seen and examined in the ICU Discussed with general surgeon and he examined the patient with me Patient's is present in his good support for him Currently still intubated and on the vent He is on assist control with 40% oxygen Remains very critically ill Mr Mata is a 49 yo M admitted with severe epigastric pain beginning in the morning of admission. Ultimately diagnosed with gallstone pancreatitis. Hemodia lysis catheter placed for renal failure. Arterial blood gas revealed a pH of 7.30, PaCO2 of 31, PaO2 of 75, bicarb was 15. Consulted ID, GI, General surgery, nephrology, pulmonology 06/21: Ex-lap with pancreatic necrosectomy, cholecystectomy, gastrostomy tube lpacement, tracheostomy placement. 06/22 - 06/26: Has 5 abdominal drains plus a [place]ob[place] and an NG to suction, intubated, sedated, paralyzed 06/28- 07/02: remain on micafungin, TPN. Trached on vent, sedated, 40% FiO2 07/03: His dialysis catheter and central line were removed. Ventilated via trach and sedated 07/04: Sedated on precedex. ABG reviewed, stable. Vitals stable, drains stable, still requiring ventilation on trach. Hb 7.6. TAG 1170 changed from propofol to versed for sedation 07/06 reposition G-tube. Overnight sedated. Still febrile. More comfortable on versed for sedation. Hb 7, 1u PRBC ordered. plan: Trend CBC Vitals/I&O Vitals/I&O: Vital Signs Date Time Temp Pulse Resp B/P (MAP) Pulse Ox O2 Delivery O2 Flow Rate FiO2 07/15/19 12:02 100 V60 AVAPS 07/15/19 07:36 45 07/15/19 07:33 170 244/107 07/15/19 04:00 98.2 98.2 I & O 07/14/19 07/14/19 07/15/19 15:00 23:00 07:00 Intake Total 0 ml 1715 ml Output Total 1010 ml 1795 ml 1050 ml Balance -1010 ml -1795 ml 665 ml Physical Exam Physical Exam: GENERAL: Sedated, trached/vent, HEENT: Pupils equal reactive - mild icteric NECK: Trach LUNGS: Diminished aeration bases HEART: S1, S2, regular ABDOMEN: Distended, bowel sounds quiet, drains x5, wound vac in place : Lobato in place EXTREMITIES: 1+ edema, no cyanosis. SCDs bilaterally SKIN: Warm, moist. 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 [employer]: Sedated Left IJ 07/06- clean. General: Other (eyes open, on sedation ) Heart: Regular rate, Normal S1, Normal S2, No murmurs, Gallops Abdomen: Soft, Other (drains in place) Extremities: No clubbing, No cyanosis, No edema, Normal pulses, No tenderness/swelling Skin: No significant lesion Labs Labs: Laboratory Tests Test 07/14/19 14:40 07/15/19 00:23 07/15/19 05:00 07/15/19 05:45 Glucose (Fingerstick) 169 mg/dL (70-99) 230 mg/dL (70-99) 158 mg/dL (70-99) White Blood Count 10.4 x10^3/uL (4.0-11.0) Red Blood Count 2.64 x10^6/uL (4.30-5.70) Hemoglobin 7.5 g/dL (13.0-17.5) Hematocrit 24.1 % (39.0-53.0) Mean Corpuscular Volume 91 fL (79-100) Mean Corpuscular Hemoglobin 29 pg (25-35) Mean Corpuscular Hemoglobin Concent 31 g/dL (31-37) Red Cell Distribution Width 15.6 % (11.5-14.5) Platelet Count 267 x10^3/uL (140-400) Sodium Level 141 mmol/L (136-145) Potassium Level 4.3 mmol/L (3.5-5.1) Chloride Level 108 mmol/L (98-107) Carbon Dioxide Level 26 mmol/L (21-32) Anion Gap 7 (6-14) Blood Urea Nitrogen 24 mg/dL (8-26) Creatinine 0.9 mg/dL (0.7-1.3) Estimated GFR (Cockcroft-Gault) 108.5 BUN/Creatinine Ratio 27 (6-20) Glucose Level 179 mg/dL (70-99) Calcium Level 8.2 mg/dL (8.5-10.1) Phosphorus Level 2.5 mg/dL (2.6-4.7) Magnesium Level 1.6 mg/dL (1.8-2.4) Total Bilirubin 2.3 mg/dL (0.2-1.0) Aspartate Amino Transf (AST/SGOT) 58 U/L (15-37) Alanine Aminotransferase (ALT/SGPT) 45 U/L (16-63) Alkaline Phosphatase 244 U/L (46-116) Total Protein 6.4 g/dL (6.4-8.2) Albumin 1.1 g/dL (3.4-5.0) Albumin/Globulin Ratio 0.2 (1.0-1.7) Test 07/15/19 08:00 O2 Saturation 97 % (92-99) Arterial Blood pH 7.38 (7.35-7.45) Arterial Blood pH (Temp corrected) 7.36 Arterial Blood pCO2 at Patient Temp 41 mmHg (35-46) Arterial Blood pCO2 (Temp correct) 43 mmHg Arterial Blood pO2 at Patient Temp 97 mmHg (75-108) Arterial Blood pO2 (Temp corrected) 105 mmHg Arterial Blood HCO3 23 mmol/L (21-28) Arterial Blood Base Excess -2 mmol/L (-3-3) FiO2 40 Review of Systems Review of Systems: Unable to obtain Assessment and Plan Assessmemt and Plan Problems Medical Problems: (1) Acute pancreatitis Status: Acute (2) Nausea & vomiting Status: Acute Severe pancreatitis with the following surgery: Exploratory laparotomy, pancreatic necrosectomy, cholecystostomy tube placement, Gastrostomy placement with jejunal extension, tracheostomy placement (specifically 8 shiley cuffed) Acute hypoxemic respiratory failure, multifactorial. Status post tracheostomy 5 drains Acute gallstone pancreatitis./ Necrosis Acute kidney failure. improving Metabolic toxic encephalopathy. Hyperkalemia.corrected Metabolic / respiratory acidosis Hypocalcemia. Hepatitis B Hypernatremia LLL small effusion, monitor Plan: Reviewed the case with his at length Continue ICU monitoring Continue to monitor intraabdominal pressures IV micafungin GEN IV insulin DVT prophylaxis We have a GJ tube and hope to begin feedings into the jejunum eventually For now continue TPN I discussed with case management he has been accepted at the LTAC Dr. Smyth would like to wait till next week for the LTAC and I agree Appreciate subspecialist input Vent weaning if possible IV antibiotics IV paralytics and IV sedatives Trend labs Lob[place] to bedside drainage Trend labs Daily chest x-ray Wound care We are managing at least 5 abdominal drains He remains critically ill Prognosis extremely guarded at best Total time 39 minutes Comment Review of Relevant I have reviewed the following items alexandra (where applicable) has been applied. Medications: Current Medications Medications (Trade) Dose Ordered Sig/Jesse Route PRN Reason Start Time Stop Time Status Last Admin Dose Admin Potassium Acetate 15 meq/Potassium Phosphate 15 mmol/ Magnesium Sulfate 10 meq/Calcium Gluconate 10 meq/ Multivitamins 10 ml/Chromium/ Copper/Manganese/ Seleni/Zn 0.5 ml/ Total Parenteral Nutrition/Amino Acids/Dextrose/ Fat Emulsion Intravenous 1,920 ml @ 80 mls/hr TPN CONT IV 07/14/19 22:00 07/15/19 21:59 07/14/19 22:16 Hemodynamically unstable?: No Is patient in severe pain?: No Is NPO status required?: Yes JUSTIN WORKMAN III DO Jul 15, 2019 13:49
--- NOTE | 2019-07-15 14:45 | NUR ---
Wound Care Pt seen for wound care follow up re: dressing change of an incisional vac to midline abdominal incision. Abdominal incision dressing removed and a small amount of serosanguineous drainage along incision line. Vac drape "window paned" around incision, contact layer applied over incision line, then silver vac foam applied over contact layer, drape applied, vac showing strong seal at -125 mmHg continuous suction. per MAI Perez the dressings around the tubes already changed and she had just turned the patient to the left side. Will continue to follow for vac management on weekly basis and PRN.
[2019-07-15] MEDS: IV NORMAL SALINE 1000ML BAG 1,000 ML IV SCH (17:07)
[2019-07-15] MEDS ORDERED: AMINO ACID IV SCH ×9 (22:00)
[2019-07-15] MEDS ORDERED: TOTAL PARENTERAL NUTRITION IV SCH ×9 (22:00)
[2019-07-15] MEDS ORDERED: DEXTROSE 70% IV SCH ×9 (22:00)
[2019-07-15] MEDS ORDERED: [UNRECOGNIZED DRUG - OTHER] IV SCH ×9 (22:00)
[2019-07-15] MEDS: fentaNYL HIGH DOSE PCA 55 ML IV PRN (22:24)
[2019-07-16] VITALS (23 sets, daily range): BP systolic 83–160; BP diastolic 49–88
[2019-07-16] MEDS: INSULIN LISPRO 300 UNITS/3 ML VIAL. SQ SCH ×4 (00:10→17:33)
[2019-07-16] MEDS: DEXMEDETOMIDINE 400 MCG in IV NORMAL SALINE 100ML 96 ML IV PRN ×7 (00:39→22:46)
[2019-07-16] MEDS: CEFEPIME HCL IV Push 2 GM VIAL. IVP SCH ×3 (05:35→22:11)
[2019-07-16] MEDS: ENOXAPARIN 40 MG/0.4 ML SYRINGE. SQ SCH (05:42)
[2019-07-16] MEDS: PANTOPRAZOLE IV PUSH 40 MG VIAL. IVP SCH ×2 (06:07→17:35)
[2019-07-16 06:42] LABS: CALCIUM 7.9 mg/dL (8.5-10.1); CREATININE 0.9 mg/dL (0.7-1.3); GFR 108.5; MAGNESIUM 1.9 mg/dL (1.8-2.4); PHOSPHORUS 2.4 mg/dL (2.6-4.7); POTASSIUM 4.3 mmol/L (3.5-5.1)
[2019-07-16] MEDS: MIDAZOLAM HCL 100 MG in IV NORMAL SALINE 100ML 100 ML IV PRN ×2 (07:29→17:52)
[2019-07-16] MEDS: FUROSEMIDE 40 MG/4 ML VIAL. IVP SCH (07:32)
[2019-07-16] MEDS: ALBUTEROL SULFATE 2.5 MG/3 ML NEBU. NEB SCH ×4 (07:32→22:59)
[2019-07-16 07:40] LABS: BASE EXCESS ABG 0 mmol/L (-3-3); HCO3 ABG 26 mmol/L (21-28); PCO2 ABG 45 mmHg (35-46); PO2 ABG 116 mmHg (75-108); SAT O2 ABG 98 % (92-99)
[2019-07-16 07:46] LABS: FIO2 ABG 40%
--- NOTE | 2019-07-16 08:27 | PDOC ---
Infectious Disease Note Subjective Subjective Trach/vent FiO2 40% TPN ROS ROS no n/v/d/ Vital Sign Vital Signs Vital Signs Date Time Temp Pulse Resp B/P (MAP) Pulse Ox O2 Delivery O2 Flow Rate FiO2 07/16/19 08:00 Mechanical Ventilator 07/16/19 08:00 109 26 134/74 (94) 100 07/16/19 04:00 99.8 99.8 Physical Exam PHYSICAL EXAM GENERAL: Sedated, trached/vent, HEENT: Pupils equal reactive - mild icteric NECK: Trach LUNGS: Diminished aeration bases HEART: S1, S2, regular ABDOMEN: Distended, bowel sounds quiet, drains x5, wound vac in place : [place] in place EXTREMITIES: 1+ edema, no cyanosis. SCDs bilaterally SKIN: Warm, moist. 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 ARM MAKER: Sedated Left IJ 07/06- clean. Labs Lab Laboratory Tests Test 07/15/19 17:00 07/16/19 00:07 07/16/19 06:00 07/16/19 06:18 Glucose (Fingerstick) 202 mg/dL (70-99) 213 mg/dL (70-99) 232 mg/dL (70-99) Sodium Level 138 mmol/L (136-145) Potassium Level 4.3 mmol/L (3.5-5.1) Chloride Level 105 mmol/L (98-107) Carbon Dioxide Level 30 mmol/L (21-32) Anion Gap 3 (6-14) Blood Urea Nitrogen 26 mg/dL (8-26) Creatinine 0.9 mg/dL (0.7-1.3) Estimated GFR (Cockcroft-Gault) 108.5 Glucose Level 243 mg/dL (70-99) Calcium Level 7.9 mg/dL (8.5-10.1) Phosphorus Level 2.4 mg/dL (2.6-4.7) Magnesium Level 1.9 mg/dL (1.8-2.4) Test 07/16/19 07:35 O2 Saturation 98 % (92-99) Arterial Blood pH 7.37 (7.35-7.45) Arterial Blood pCO2 at Patient Temp 45 mmHg (35-46) Arterial Blood pO2 at Patient Temp 116 mmHg (75-108) Arterial Blood HCO3 26 mmol/L (21-28) Arterial Blood Base Excess 0 mmol/L (-3-3) FiO2 40% Micro Microbiology 06/20/19 Blood Culture - Preliminary, Resulted NO GROWTH AFTER 2 DAYS Objective Assessment Fever - ? ileus/pancreatitis/abd distension/pleural effusion/occlusive clot in cephalic - blood cults 07/05 - neg - lines chg'd 07/06 LIJ Leukocytosis - better - ? reactive given procedure 07/06, better Left pleural effusion s/p thoracentesis, 07/10 - PH 7.34, nucleated cells 1580, RBC 28379. glu 149,TP 3.2, LDH 269. cultures pending Gallbladder stone pancreatitis s/p expl lap, pancreatic necrosectomy, cholecystostomy tube placement, G-tube placement with jejunal extension, 06/21 -gastrostomy tube repositioned by IR 07/03; s/p Jejunostomy placement 07/06 per nursing, no report Intra-abd fluid collections Sepsis from GI - cult neg Acute Resp failure - s/p trach 06/21, vent dependent Lactic acidosis. Acute kidney injury previously requiring dialysis - now with improved UOP, HDC now out Metabolic acidosis. Hypocalcemia Right arm swelling, + occlusive thrombosis within the cephalic vein, no DVT on US Yeast in sputum from 07/03 likely represents colonization - was on antifungal when collected Anemia s/p PRBCs 07/05 Plan Plan of Care Continue cefepime/Flagyl (07/05) and Zyvox Cultures neg Maintain aspiration precaution. Gen surgery following D/w nursing KRISTIAN GOODMAN MD Jul 16, 2019 08:27
[2019-07-16] MEDS: INSULIN GLARGINE SYRINGE. SQ SCH ×2 (08:39→21:21)
--- NOTE | 2019-07-16 09:58 | PDOC ---
SURGICAL PROGRESS NOTE Subjective Pt intubated and sedated, pt not tolerating being off sedation for attempts at vent wean Vital Signs Vital Signs Date Time Temp Pulse Resp B/P (MAP) Pulse Ox O2 Delivery O2 Flow Rate FiO2 07/16/19 09:00 98.1 98 22 97/59 (72) 100 AVAPS 98.1 I&O Intake and Output 07/16/19 07:00 Intake Total 1249 ml Output Total 3600 ml Balance -2351 ml IV Total 1249 ml Output Urine Total 2935 ml Drainage Total 665 ml PATIENT HAS A LEPE: Yes (accurate i and os) General: No acute distress Abdomen: Soft, Other (distended, tubes in place) Labs Laboratory Tests Test 07/14/19 14:40 07/15/19 00:23 07/15/19 05:00 07/15/19 05:45 Glucose (Fingerstick) 169 mg/dL (70-99) 230 mg/dL (70-99) 158 mg/dL (70-99) White Blood Count 10.4 x10^3/uL (4.0-11.0) Red Blood Count 2.64 x10^6/uL (4.30-5.70) Hemoglobin 7.5 g/dL (13.0-17.5) Hematocrit 24.1 % (39.0-53.0) Mean Corpuscular Volume 91 fL (79-100) Mean Corpuscular Hemoglobin 29 pg (25-35) Mean Corpuscular Hemoglobin Concent 31 g/dL (31-37) Red Cell Distribution Width 15.6 % (11.5-14.5) Platelet Count 267 x10^3/uL (140-400) Sodium Level 141 mmol/L (136-145) Potassium Level 4.3 mmol/L (3.5-5.1) Chloride Level 108 mmol/L (98-107) Carbon Dioxide Level 26 mmol/L (21-32) Anion Gap 7 (6-14) Blood Urea Nitrogen 24 mg/dL (8-26) Creatinine 0.9 mg/dL (0.7-1.3) Estimated GFR (Cockcroft-Gault) 108.5 BUN/Creatinine Ratio 27 (6-20) Glucose Level 179 mg/dL (70-99) Calcium Level 8.2 mg/dL (8.5-10.1) Phosphorus Level 2.5 mg/dL (2.6-4.7) Magnesium Level 1.6 mg/dL (1.8-2.4) Total Bilirubin 2.3 mg/dL (0.2-1.0) Aspartate Amino Transf (AST/SGOT) 58 U/L (15-37) Alanine Aminotransferase (ALT/SGPT) 45 U/L (16-63) Alkaline Phosphatase 244 U/L (46-116) Total Protein 6.4 g/dL (6.4-8.2) Albumin 1.1 g/dL (3.4-5.0) Albumin/Globulin Ratio 0.2 (1.0-1.7) Test 07/15/19 08:00 07/15/19 17:00 07/16/19 00:07 07/16/19 06:00 O2 Saturation 97 % (92-99) Arterial Blood pH 7.38 (7.35-7.45) Arterial Blood pH (Temp corrected) 7.36 Arterial Blood pCO2 at Patient Temp 41 mmHg (35-46) Arterial Blood pCO2 (Temp correct) 43 mmHg Arterial Blood pO2 at Patient Temp 97 mmHg (75-108) Arterial Blood pO2 (Temp corrected) 105 mmHg Arterial Blood HCO3 23 mmol/L (21-28) Arterial Blood Base Excess -2 mmol/L (-3-3) FiO2 40 Glucose (Fingerstick) 202 mg/dL (70-99) 213 mg/dL (70-99) Sodium Level 138 mmol/L (136-145) Potassium Level 4.3 mmol/L (3.5-5.1) Chloride Level 105 mmol/L (98-107) Carbon Dioxide Level 30 mmol/L (21-32) Anion Gap 3 (6-14) Blood Urea Nitrogen 26 mg/dL (8-26) Creatinine 0.9 mg/dL (0.7-1.3) Estimated GFR (Cockcroft-Gault) 108.5 Glucose Level 243 mg/dL (70-99) Calcium Level 7.9 mg/dL (8.5-10.1) Phosphorus Level 2.4 mg/dL (2.6-4.7) Magnesium Level 1.9 mg/dL (1.8-2.4) Test 07/16/19 06:18 07/16/19 07:35 Glucose (Fingerstick) 232 mg/dL (70-99) O2 Saturation 98 % (92-99) Arterial Blood pH 7.37 (7.35-7.45) Arterial Blood pCO2 at Patient Temp 45 mmHg (35-46) Arterial Blood pO2 at Patient Temp 116 mmHg (75-108) Arterial Blood HCO3 26 mmol/L (21-28) Arterial Blood Base Excess 0 mmol/L (-3-3) FiO2 40% Laboratory Tests Test 07/15/19 17:00 07/16/19 00:07 07/16/19 06:00 07/16/19 06:18 Glucose (Fingerstick) 202 mg/dL (70-99) 213 mg/dL (70-99) 232 mg/dL (70-99) Sodium Level 138 mmol/L (136-145) Potassium Level 4.3 mmol/L (3.5-5.1) Chloride Level 105 mmol/L (98-107) Carbon Dioxide Level 30 mmol/L (21-32) Anion Gap 3 (6-14) Blood Urea Nitrogen 26 mg/dL (8-26) Creatinine 0.9 mg/dL (0.7-1.3) Estimated GFR (Cockcroft-Gault) 108.5 Glucose Level 243 mg/dL (70-99) Calcium Level 7.9 mg/dL (8.5-10.1) Phosphorus Level 2.4 mg/dL (2.6-4.7) Magnesium Level 1.9 mg/dL (1.8-2.4) Test 07/16/19 07:35 O2 Saturation 98 % (92-99) Arterial Blood pH 7.37 (7.35-7.45) Arterial Blood pCO2 at Patient Temp 45 mmHg (35-46) Arterial Blood pO2 at Patient Temp 116 mmHg (75-108) Arterial Blood HCO3 26 mmol/L (21-28) Arterial Blood Base Excess 0 mmol/L (-3-3) FiO2 40% Problem List Problems Medical Problems: (1) Acute pancreatitis Status: Acute (2) Nausea & vomiting Status: Acute Assessment/Plan s/p xlap appears stable, diuresing d/w hospitalist favor continued supportive care will start trophic tube feeds d/w pt's yesterday. KARLA CALL MD Jul 16, 2019 09:58
--- NOTE | 2019-07-16 10:38 | NUR ---
SS following up with discharge planning. SS phoned and faxed clinical updates to [facility], ; fax [phone]. Surgery not signed off at this time. SS will continue to follow for discharge planning.
--- NOTE | 2019-07-16 10:51 | PDOC ---
Objective: Objective: D/w nurse - wondering about DC to [facility] Reviewed chart - possibly to start J tube feeds ?timing of last stool Vital Signs: Vital Signs Date Time Temp Pulse Resp B/P (MAP) Pulse Ox O2 Delivery O2 Flow Rate FiO2 07/16/19 10:00 89 22 83/49 (60) 100 AVAPS 07/16/19 09:00 98.1 98.1 Labs: Laboratory Tests Test 07/15/19 17:00 07/16/19 00:07 07/16/19 06:00 07/16/19 06:18 Glucose (Fingerstick) 202 mg/dL 213 mg/dL 232 mg/dL Sodium Level 138 mmol/L Potassium Level 4.3 mmol/L Chloride Level 105 mmol/L Carbon Dioxide Level 30 mmol/L Anion Gap 3 Blood Urea Nitrogen 26 mg/dL Creatinine 0.9 mg/dL Estimated GFR (Cockcroft-Gault) 108.5 Glucose Level 243 mg/dL Calcium Level 7.9 mg/dL Phosphorus Level 2.4 mg/dL Magnesium Level 1.9 mg/dL Test 07/16/19 07:35 O2 Saturation 98 % Arterial Blood pH 7.37 Arterial Blood pCO2 at Patient Temp 45 mmHg Arterial Blood pO2 at Patient Temp 116 mmHg Arterial Blood HCO3 26 mmol/L Arterial Blood Base Excess 0 mmol/L FiO2 40% PE: GEN: intubated LUNGS: diminished HEART: RRR ABD: stable distention, tubes NEURO/PSYCH: sedated A/P: S/p pancreatic necrosectomy, MOSF -- Continue same per GI. Hemodynamically unstable?: No Is patient in severe pain?: No Is NPO status required?: Yes PAXTON ALEXANDER Jul 16, 2019 10:51
[2019-07-16] MEDS: TPN PER PHARMACY MC PRN (11:42)
--- NOTE | 2019-07-16 12:01 | NUR ---
Pharmacy TPN Dosing Note S: CHRISTOPHER NEWSOME is a 49 year old M Currently receiving Central Continuous TPN started 06/19/19 B:Pertinent PMH: PANCREATITIS Height: 5 feet, 9 inches Weight: 105.5 kg Current diet: NPO LABS: Sodium: 138 Potassium: 4.3 Chloride: 105 Calcium: 7.9 Corrected Calcium: 10.22 Magnesium: 1.9 CO2: 30 SCr: 0.9 Glucose: 243 Albumin: 1.1 AST: 58 ALT: 45 TPN FORMULA: TPN TYPE: Central Continuous AMINO ACIDS: 145 gm DEXTROSE: 285 gm LIPIDS: 20 gm SODIUM CHLORIDE: mEq SODIUM ACETATE: mEq SODIUM PHOSPHATE: - mmol POTASSIUM CHLORIDE: mEq POTASSIUM ACETATE: 15 mEq POTASSIUM PHOSPHATE: 18 mmol MAGNESIUM: 15 mEq CALCIUM: 10 mEq INSULIN: - units MULTIPLE VITAMIN: 10 ml TRACE ELEMENTS: 0.5 ml(s) TPN PLAN: Continue same tpn. Bolus NaPo4 for phos=2.4 . R: Continue TPN as ordered Will monitor electrolytes, glucose, and tolerance to TPN. BAL GARLAND, [facility], 07/16/19 [id number]
[2019-07-16] MEDS ORDERED: BISACODYL 10 MG SUPP.RECT. PR ONE (12:30)
[2019-07-16] MEDS ORDERED: SODIUM PHOSPHATE 15 MMOL in IV NS 100 ML IV ONE (14:00)
[2019-07-16] MEDS: IV NORMAL SALINE 1000ML BAG 1,000 ML IV SCH (14:55)
--- NOTE | 2019-07-16 15:19 | PDOC ---
PULMONARY PROGRESS NOTES Subjective Hemodynamically stable, currently on AVAPS respirator had increase R/R again this am with increase HR when sedation weaned fevers low grade Vitals Vital Signs Date Time Temp Pulse Resp B/P (MAP) Pulse Ox O2 Delivery O2 Flow Rate FiO2 07/16/19 14:00 101 24 126/76 (93) 100 AVAPS 07/16/19 12:00 98.3 98.3 Lungs: Other (decreased) Cardiovascular: S1 Abdomen: Other (distended) Extremities: No Edema Skin: Warm Labs Laboratory Tests Test 07/15/19 00:23 07/15/19 05:00 07/15/19 05:45 07/15/19 08:00 Glucose (Fingerstick) 230 mg/dL (70-99) 158 mg/dL (70-99) White Blood Count 10.4 x10^3/uL (4.0-11.0) Red Blood Count 2.64 x10^6/uL (4.30-5.70) Hemoglobin 7.5 g/dL (13.0-17.5) Hematocrit 24.1 % (39.0-53.0) Mean Corpuscular Volume 91 fL (79-100) Mean Corpuscular Hemoglobin 29 pg (25-35) Mean Corpuscular Hemoglobin Concent 31 g/dL (31-37) Red Cell Distribution Width 15.6 % (11.5-14.5) Platelet Count 267 x10^3/uL (140-400) Sodium Level 141 mmol/L (136-145) Potassium Level 4.3 mmol/L (3.5-5.1) Chloride Level 108 mmol/L (98-107) Carbon Dioxide Level 26 mmol/L (21-32) Anion Gap 7 (6-14) Blood Urea Nitrogen 24 mg/dL (8-26) Creatinine 0.9 mg/dL (0.7-1.3) Estimated GFR (Cockcroft-Gault) 108.5 BUN/Creatinine Ratio 27 (6-20) Glucose Level 179 mg/dL (70-99) Calcium Level 8.2 mg/dL (8.5-10.1) Phosphorus Level 2.5 mg/dL (2.6-4.7) Magnesium Level 1.6 mg/dL (1.8-2.4) Total Bilirubin 2.3 mg/dL (0.2-1.0) Aspartate Amino Transf (AST/SGOT) 58 U/L (15-37) Alanine Aminotransferase (ALT/SGPT) 45 U/L (16-63) Alkaline Phosphatase 244 U/L (46-116) Total Protein 6.4 g/dL (6.4-8.2) Albumin 1.1 g/dL (3.4-5.0) Albumin/Globulin Ratio 0.2 (1.0-1.7) O2 Saturation 97 % (92-99) Arterial Blood pH 7.38 (7.35-7.45) Arterial Blood pH (Temp corrected) 7.36 Arterial Blood pCO2 at Patient Temp 41 mmHg (35-46) Arterial Blood pCO2 (Temp correct) 43 mmHg Arterial Blood pO2 at Patient Temp 97 mmHg (75-108) Arterial Blood pO2 (Temp corrected) 105 mmHg Arterial Blood HCO3 23 mmol/L (21-28) Arterial Blood Base Excess -2 mmol/L (-3-3) FiO2 40 Test 07/15/19 17:00 07/16/19 00:07 07/16/19 06:00 07/16/19 06:18 Glucose (Fingerstick) 202 mg/dL (70-99) 213 mg/dL (70-99) 232 mg/dL (70-99) Sodium Level 138 mmol/L (136-145) Potassium Level 4.3 mmol/L (3.5-5.1) Chloride Level 105 mmol/L (98-107) Carbon Dioxide Level 30 mmol/L (21-32) Anion Gap 3 (6-14) Blood Urea Nitrogen 26 mg/dL (8-26) Creatinine 0.9 mg/dL (0.7-1.3) Estimated GFR (Cockcroft-Gault) 108.5 Glucose Level 243 mg/dL (70-99) Calcium Level 7.9 mg/dL (8.5-10.1) Phosphorus Level 2.4 mg/dL (2.6-4.7) Magnesium Level 1.9 mg/dL (1.8-2.4) Test 07/16/19 07:35 07/16/19 12:02 O2 Saturation 98 % (92-99) Arterial Blood pH 7.37 (7.35-7.45) Arterial Blood pCO2 at Patient Temp 45 mmHg (35-46) Arterial Blood pO2 at Patient Temp 116 mmHg (75-108) Arterial Blood HCO3 26 mmol/L (21-28) Arterial Blood Base Excess 0 mmol/L (-3-3) FiO2 40% Glucose (Fingerstick) 204 mg/dL (70-99) Laboratory Tests Test 07/15/19 17:00 07/16/19 00:07 07/16/19 06:00 07/16/19 06:18 Glucose (Fingerstick) 202 mg/dL (70-99) 213 mg/dL (70-99) 232 mg/dL (70-99) Sodium Level 138 mmol/L (136-145) Potassium Level 4.3 mmol/L (3.5-5.1) Chloride Level 105 mmol/L (98-107) Carbon Dioxide Level 30 mmol/L (21-32) Anion Gap 3 (6-14) Blood Urea Nitrogen 26 mg/dL (8-26) Creatinine 0.9 mg/dL (0.7-1.3) Estimated GFR (Cockcroft-Gault) 108.5 Glucose Level 243 mg/dL (70-99) Calcium Level 7.9 mg/dL (8.5-10.1) Phosphorus Level 2.4 mg/dL (2.6-4.7) Magnesium Level 1.9 mg/dL (1.8-2.4) Test 07/16/19 07:35 07/16/19 12:02 O2 Saturation 98 % (92-99) Arterial Blood pH 7.37 (7.35-7.45) Arterial Blood pCO2 at Patient Temp 45 mmHg (35-46) Arterial Blood pO2 at Patient Temp 116 mmHg (75-108) Arterial Blood HCO3 26 mmol/L (21-28) Arterial Blood Base Excess 0 mmol/L (-3-3) FiO2 40% Glucose (Fingerstick) 204 mg/dL (70-99) Medications Active Scripts Medications Dose Route/Sig Max Daily Dose Days Date Category Comments cxr 07/14 reviewed poor insp effort Left basal effusion/ atelectasis CT chest IMPRESSION: Infiltrates with air bronchograms posterior medially at the right lung base without change. Moderate left pleural effusion with atelectasis or infiltrate at the left lung base without significant change. Continued presence of an enlarged edematous pancreas with inflammatory changes in the mesentery consistent with history of necrotic pancreatitis and showing some mild improvement. Continued presence of drainage tubes in the upper abdomen with no significant fluid collections surrounding the tips of these tubes. There is however still some free fluid present in the abdomen abdomen. Soft tissue process anteriorly within the cardiac fat pad which appears slightly more prominent than on previous examination and may reflect an inflammatory process. Impression . IMPRESSION: 1. Acute hypoxemic respiratory failure, multifactorial, 2. Acute gallstone pancreatitis./ Necrosis. s/p Exploratory laparotomy, pancreatic necrosectomy, cholecystostomy tube placement, Gastrostomy placement with jejunal extension, tracheostomy placement (specifically 8 shiley cuffed) 06/21 3. Acute kidney failure. improving 4. Metabolic toxic encephalopathy. 5. Hyperkalemia.corrected 6. Metabolic / respiratory acidosis 7. Hypocalcemia. 8. POSSIBLE ABD COMPARTMENT SYNDROME , s/p Exp lap 9. HEP B S POSITIVE 10. Hypernatremia, resolved 11. LLL small effusion, monitor 12. FEVER PER ID, improvement afebrile the last 48 hours 13. Occlusive thrombus within the cephalic vein no DVT on ultrasound ri Repeat CT Infiltrates with air bronchograms posterior medially at the right lung base without change. Moderate left pleural effusion with atelectasis or infiltrate at the left lung base without significant change. Continued presence of an enlarged edematous pancreas with inflammatory changes in the mesentery consistent with history of necrotic pancreatitis and showing some mild improvement. Continued presence of drainage tubes in the upper abdomen with no significant fluid collections surrounding the tips of these tubes. There is however still some free fluid present in the abdomen abdomen. Soft tissue process anteriorly within the cardiac fat pad which appears slightly more prominent than on previous examination and may reflect an inflammatory process. Plan . Contine AVAPS at current settings needs PRN Paralytics continue current sedation/ narcotics Antibiotics per ID Any further CT abdomen, will defer to ID and surgery Not ready for spontaneous trial Follow surgery input Nutrition per TPN Continue current antibiotics per ID DVT GI prophylaxis Case discussed with RN Total cumulative critical care time of 30 minutes reviewing data, labs, x-ray, adjusting ventilator TAYA PEREIRA MD Jul 16, 2019 15:19
--- NOTE | 2019-07-16 15:53 | PDOC ---
PROGRESS NOTES Chief Complaint Chief Complaint Severe pancreatitis with the following surgery: Exploratory laparotomy, pancreatic necrosectomy, cholecystostomy tube placement, Gastrostomy placement with jejunal extension, tracheostomy placement (specifically 8 shiley cuffed) Acute hypoxemic respiratory failure, multifactorial. Status post tracheostomy 5 drains Acute gallstone pancreatitis./ Necrosis Acute kidney failure. improving Metabolic toxic encephalopathy. Hyperkalemia.corrected Metabolic / respiratory acidosis Hypocalcemia. Hepatitis B Hypernatremia LLL small effusion, monitor Plan: continue vent support unable to do trials due to agitation discussed with certified surgical first assistant at bedside poor prognosis. reassess in the am History of Present Illness History of Present Illness 07/16/2019 critically stable still getting very agitated if sedation wears off no other acute events reported overnight. [id number] Patient seen and examined in the ICU He remains critically ill on the vent He is on pressure control 32/5 with 40% FiO2 His Deacon is present Chart reviewed Discussed with RN He is extremely critically ill and I'm concerned about his long-term prognosis [id number] Patient seen and examined in the ICU He remains extremely critically ill Intubated On pressure control 32 with 5 of PEEP 500 tidal volume rate of 20 and 40% FiO2 Sedated On TPN Discussed with RN Chart reviewed [id number] Patient seen and examined in the ICU his is present Discussed with RN Chart reviewed The patient actually open his eyes and tried to look at me? [id number] Patient seen and examined in the ICU He remains intubated and mechanically ventilated Extremely critically ill On TPN Versed Precedex and fentanyl Vent settings before meals/20/500/40% Discussed with clinical implementation specialist and RN Chart reviewed [id number] Patient seen and examined in the ICU Currently getting a sponge bath Got a great view of his abdomen He has a total of 7 different drains and/or catheters Still mechanically ventilated Off of pressors Sedated Periodically can open his eyes Still very critically ill Chart reviewed Discussed with RNs [id number] Patient seen and examined in the intensive care unit He remains mechanically ventilated Before meals/20/500/40% Extremely critically ill He has 4 or 5 drains in including GJ tube Discussed with RN Chart reviewed [id number] Patient seen and examined in the ICU He is still mechanically ventilated assist-control/20/500 with 40% Chart reviewed Discussed with RN He remains very critically ill [id number] Patient seen and examined in the ICU Discussed with general surgeon and he examined the patient with me Patient's is present in his good support for him Currently still intubated and on the vent He is on assist control with 40% oxygen Remains very critically ill Mr Mata is a 49 yo M admitted with severe epigastric pain beginning in the morning of admission. Ultimately diagnosed with gallstone pancreatitis. Hemodi alysis catheter placed for renal failure. Arterial blood gas revealed a pH of 7.30, PaCO2 of 31, PaO2 of 75, bicarb was 15. Consulted ID, GI, General surgery, nephrology, pulmonology 06/21: Ex-lap with pancreatic necrosectomy, cholecystectomy, gastrostomy tube lpacement, tracheostomy placement. 06/22 - 06/26: Has 5 abdominal drains plus a Lobato and an NG to suction, intubated, sedated, paralyzed 06/28- 07/02: remain on micafungin, TPN. Trached on vent, sedated, 40% FiO2 07/03: His dialysis catheter and central line were removed. Ventilated via trach and sedated 07/04: Sedated on precedex. ABG reviewed, stable. Vitals stable, drains stable, still requiring ventilation on trach. Hb 7.6. TAG 1170 changed from propofol to versed for sedation 07/06 reposition G-tube. Overnight sedated. Still febrile. More comfortable on versed for sedation. Hb 7, 1u PRBC ordered. plan: Trend CBC Vitals Vitals Vital Signs Date Time Temp Pulse Resp B/P (MAP) Pulse Ox O2 Delivery O2 Flow Rate FiO2 07/16/19 14:00 101 24 126/76 (93) 100 AVAPS 07/16/19 12:00 98.3 98.3 Physical Exam Physical Exam GENERAL: Sedated, trached/vent, HEENT: Pupils equal reactive - mild icteric NECK: Trach LUNGS: Diminished aeration bases HEART: S1, S2, regular ABDOMEN: Distended, bowel sounds quiet, drains x5, wound vac in place : Lobato in place EXTREMITIES: 1+ edema, no cyanosis. SCDs bilaterally SKIN: Warm, moist. 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 General: No acute distress Heart: Regular rate, Normal S1, Normal S2, No murmurs, Gallops Lungs: Other (decreased) Abdomen: Soft, Other (distended, tubes in place) Extremities: No clubbing, No cyanosis, No edema, Normal pulses, No tenderness/swelling Skin: No significant lesion Labs LABS Laboratory Tests Test 07/15/19 17:00 07/16/19 00:07 07/16/19 06:00 07/16/19 06:18 Glucose (Fingerstick) 202 mg/dL (70-99) 213 mg/dL (70-99) 232 mg/dL (70-99) Sodium Level 138 mmol/L (136-145) Potassium Level 4.3 mmol/L (3.5-5.1) Chloride Level 105 mmol/L (98-107) Carbon Dioxide Level 30 mmol/L (21-32) Anion Gap 3 (6-14) Blood Urea Nitrogen 26 mg/dL (8-26) Creatinine 0.9 mg/dL (0.7-1.3) Estimated GFR (Cockcroft-Gault) 108.5 Glucose Level 243 mg/dL (70-99) Calcium Level 7.9 mg/dL (8.5-10.1) Phosphorus Level 2.4 mg/dL (2.6-4.7) Magnesium Level 1.9 mg/dL (1.8-2.4) Test 07/16/19 07:35 07/16/19 12:02 O2 Saturation 98 % (92-99) Arterial Blood pH 7.37 (7.35-7.45) Arterial Blood pCO2 at Patient Temp 45 mmHg (35-46) Arterial Blood pO2 at Patient Temp 116 mmHg (75-108) Arterial Blood HCO3 26 mmol/L (21-28) Arterial Blood Base Excess 0 mmol/L (-3-3) FiO2 40% Glucose (Fingerstick) 204 mg/dL (70-99) Assessment and Plan Assessmemt and Plan Problems Medical Problems: (1) Acute pancreatitis Status: Acute (2) Nausea & vomiting Status: Acute Comment Review of Relevant I have reviewed the following items alexandra (where applicable) has been applied. Labs Laboratory Tests Test 07/15/19 00:23 07/15/19 05:00 07/15/19 05:45 07/15/19 08:00 Glucose (Fingerstick) 230 mg/dL (70-99) 158 mg/dL (70-99) White Blood Count 10.4 x10^3/uL (4.0-11.0) Red Blood Count 2.64 x10^6/uL (4.30-5.70) Hemoglobin 7.5 g/dL (13.0-17.5) Hematocrit 24.1 % (39.0-53.0) Mean Corpuscular Volume 91 fL (79-100) Mean Corpuscular Hemoglobin 29 pg (25-35) Mean Corpuscular Hemoglobin Concent 31 g/dL (31-37) Red Cell Distribution Width 15.6 % (11.5-14.5) Platelet Count 267 x10^3/uL (140-400) Sodium Level 141 mmol/L (136-145) Potassium Level 4.3 mmol/L (3.5-5.1) Chloride Level 108 mmol/L (98-107) Carbon Dioxide Level 26 mmol/L (21-32) Anion Gap 7 (6-14) Blood Urea Nitrogen 24 mg/dL (8-26) Creatinine 0.9 mg/dL (0.7-1.3) Estimated GFR (Cockcroft-Gault) 108.5 BUN/Creatinine Ratio 27 (6-20) Glucose Level 179 mg/dL (70-99) Calcium Level 8.2 mg/dL (8.5-10.1) Phosphorus Level 2.5 mg/dL (2.6-4.7) Magnesium Level 1.6 mg/dL (1.8-2.4) Total Bilirubin 2.3 mg/dL (0.2-1.0) Aspartate Amino Transf (AST/SGOT) 58 U/L (15-37) Alanine Aminotransferase (ALT/SGPT) 45 U/L (16-63) Alkaline Phosphatase 244 U/L (46-116) Total Protein 6.4 g/dL (6.4-8.2) Albumin 1.1 g/dL (3.4-5.0) Albumin/Globulin Ratio 0.2 (1.0-1.7) O2 Saturation 97 % (92-99) Arterial Blood pH 7.38 (7.35-7.45) Arterial Blood pH (Temp corrected) 7.36 Arterial Blood pCO2 at Patient Temp 41 mmHg (35-46) Arterial Blood pCO2 (Temp correct) 43 mmHg Arterial Blood pO2 at Patient Temp 97 mmHg (75-108) Arterial Blood pO2 (Temp corrected) 105 mmHg Arterial Blood HCO3 23 mmol/L (21-28) Arterial Blood Base Excess -2 mmol/L (-3-3) FiO2 40 Test 07/15/19 17:00 07/16/19 00:07 07/16/19 06:00 07/16/19 06:18 Glucose (Fingerstick) 202 mg/dL (70-99) 213 mg/dL (70-99) 232 mg/dL (70-99) Sodium Level 138 mmol/L (136-145) Potassium Level 4.3 mmol/L (3.5-5.1) Chloride Level 105 mmol/L (98-107) Carbon Dioxide Level 30 mmol/L (21-32) Anion Gap 3 (6-14) Blood Urea Nitrogen 26 mg/dL (8-26) Creatinine 0.9 mg/dL (0.7-1.3) Estimated GFR (Cockcroft-Gault) 108.5 Glucose Level 243 mg/dL (70-99) Calcium Level 7.9 mg/dL (8.5-10.1) Phosphorus Level 2.4 mg/dL (2.6-4.7) Magnesium Level 1.9 mg/dL (1.8-2.4) Test 07/16/19 07:35 07/16/19 12:02 O2 Saturation 98 % (92-99) Arterial Blood pH 7.37 (7.35-7.45) Arterial Blood pCO2 at Patient Temp 45 mmHg (35-46) Arterial Blood pO2 at Patient Temp 116 mmHg (75-108) Arterial Blood HCO3 26 mmol/L (21-28) Arterial Blood Base Excess 0 mmol/L (-3-3) FiO2 40% Glucose (Fingerstick) 204 mg/dL (70-99) Laboratory Tests Test 07/15/19 17:00 07/16/19 00:07 07/16/19 06:00 07/16/19 06:18 Glucose (Fingerstick) 202 mg/dL (70-99) 213 mg/dL (70-99) 232 mg/dL (70-99) Sodium Level 138 mmol/L (136-145) Potassium Level 4.3 mmol/L (3.5-5.1) Chloride Level 105 mmol/L (98-107) Carbon Dioxide Level 30 mmol/L (21-32) Anion Gap 3 (6-14) Blood Urea Nitrogen 26 mg/dL (8-26) Creatinine 0.9 mg/dL (0.7-1.3) Estimated GFR (Cockcroft-Gault) 108.5 Glucose Level 243 mg/dL (70-99) Calcium Level 7.9 mg/dL (8.5-10.1) Phosphorus Level 2.4 mg/dL (2.6-4.7) Magnesium Level 1.9 mg/dL (1.8-2.4) Test 07/16/19 07:35 07/16/19 12:02 O2 Saturation 98 % (92-99) Arterial Blood pH 7.37 (7.35-7.45) Arterial Blood pCO2 at Patient Temp 45 mmHg (35-46) Arterial Blood pO2 at Patient Temp 116 mmHg (75-108) Arterial Blood HCO3 26 mmol/L (21-28) Arterial Blood Base Excess 0 mmol/L (-3-3) FiO2 40% Glucose (Fingerstick) 204 mg/dL (70-99) Microbiology 07/11/19 Aerobic and Anaerobic Culture, Resulted Pending 07/11/19 Anaerobic Culture Result 1 (CARINE), Resulted Pending 07/11/19 Aerobic Culture, Resulted Pending 07/11/19 Aerobic Culture Result 1 (CARINE), Resulted Pending 07/11/19 Gram Stain - Final, Resulted 07/11/19 Gram Stain Result 1 (CARINE) - Final, Resulted 07/11/19 Gram Stain Result 2 (CARINE) - Final, Resulted 07/06/19 Blood Culture - Final, Complete NO GROWTH AFTER 5 DAYS 07/04/19 - Final, Complete 07/04/19 - Final, Complete 07/04/19 - Final, Complete 07/04/19 Gram Stain Evaluation - Final, Complete 07/04/19 Sputum Culture - Final, Complete 07/04/19 Sputum Result 1 - Final, Complete 07/03/19 Aerobic Culture - Final, Complete 07/03/19 Aerobic Culture Result 1 (CARINE) - Final, Complete 07/03/19 Gram Stain - Final, Complete 07/03/19 Gram Stain Result 1 (CARINE) - Final, Complete 07/03/19 Gram Stain Result 2 (CARINE) - Final, Complete Medications Current Medications Morphine Sulfate (Morphine Sulfate) 4 mg PRN Q15MIN PRN IV/SQ PAIN GREATER THAN 3/10 Last administered on 06/11/19at 04:58; Start 06/11/19 at 04:30; Stop 06/11/19 at 16:47; Status DC Sodium Chloride 1,000 ml @ 1,000 mls/hr Q1H IV Last administered on 06/11/19at 04:34; Start 06/11/19 at 04:30; Stop 06/11/19 at 05:29; Status DC Ondansetron HCl (Zofran) 4 mg 1X ONCE IV Last administered on 06/11/19at 04:33; Start 06/11/19 at 04:30; Stop 06/11/19 at 04:33; Status DC Iohexol (Omnipaque 350 Mg/ml) 100 ml 1X ONCE IV Last administered on 06/11/19at 05:01; Start 06/11/19 at 04:45; Stop 06/11/19 at 04:46; Status DC Info (CONTRAST GIVEN -- Rx MONITORING) 1 each PRN DAILY PRN MC SEE COMMENTS; Start 06/11/19 at 04:45; Stop 06/13/19 at 04:44; Status DC Fentanyl Citrate (Fentanyl 2ml Vial) 100 mcg STK-MED ONCE .ROUTE ; Start 06/11/19 at 04:42; Stop 06/11/19 at 04:42; Status DC Fentanyl Citrate (Fentanyl 2ml Vial) 50 mcg 1X ONCE IVP Last administered on 06/11/19at 04:45; Start 06/11/19 at 05:00; Stop 06/11/19 at 05:01; Status DC Ondansetron HCl (Zofran) 4 mg PRN Q8HRS PRN IV NAUSEA/VOMITING Last administered on 06/12/19at 03:29; Start 06/11/19 at 05:45; Stop 06/12/19 at 05:44; Status DC Morphine Sulfate (Morphine Sulfate) 4 mg PRN Q2HR PRN IV PAIN Last administered on 06/11/19at 07:37; Start 06/11/19 at 05:45; Stop 06/11/19 at 11:54; Status DC Sodium Chloride 1,000 ml @ 150 mls/hr Q6H40M IV Last administered on 06/12/19at 03:28; Start 06/11/19 at 05:45; Stop 06/12/19 at 11:01; Status DC Hydromorphone HCl (Dilaudid) 0.5 mg PRN Q3HRS PRN IV PAIN Last administered on 06/11/19 08:38; Start 06/11/19 at 05:45; Stop 06/11/19 at 09:12; Status DC Potassium Chloride/Water 100 ml @ 100 mls/hr Q1H IV Last administered on 06/11/19 08:41; Start 06/11/19 at 06:00; Stop 06/11/19 at 07:59; Status DC Hydromorphone HCl (Dilaudid) 1 mg PRN Q3HRS PRN IV PAIN Last administered on 06/11/19at 09:29; Start 06/11/19 at 09:15; Stop 06/11/19 at 11:54; Status DC Prochlorperazine Edisylate (Compazine) 10 mg PRN Q8HRS PRN IV NAUSEA/VOMITING, 2ND CHOICE Last administered on 06/12/19at 14:59; Start 06/11/19 at 12:00 Hydromorphone HCl (Dilaudid) 1 mg PRN Q2HRS PRN IV SEVERE PAIN Last administered on 07/15/19at 07:36; Start 06/11/19 at 12:00 Pantoprazole Sodium (PROTONIX VIAL for IV PUSH) 40 mg DAILYAC IVP Last administered on 06/12/19 08:29; Start 06/11/19 at 15:00; Stop 06/12/19 at 16:23; Status DC Lorazepam (Ativan Inj) 1 mg PRN Q6HRS PRN IVP ANXIETY / AGITATION Last administered on 07/16/19at 08:41; Start 06/11/19 at 18:15 Hydralazine HCl (Apresoline Inj) 10 mg PRN Q6HRS PRN IVP ELEVATED BP, SEE COMMENTS Last administered on 06/18/19at 09:32; Start 06/11/19 at 18:15; Stop 06/21/19 at 09:12; Status DC Nystatin (Nystop) 1 devorah PRN QID PRN TP FUNGAL RASH Last administered on 06/11/19at 23:19; Start 06/11/19 at 23:15 Sodium Chloride 1,000 ml @ 1,000 mls/hr 1X ONCE IV Last administered on 06/12/19at 05:27; Start 06/12/19 at 06:00; Stop 06/12/19 at 06:59; Status DC Sodium Chloride 1,000 ml @ 1,000 mls/hr 1X ONCE IV Last administered on 06/12/19at 05:25; Start 06/12/19 at 05:00; Stop 06/12/19 at 05:59; Status DC Sodium Chloride 1,000 ml @ 200 mls/hr Q5H IV Last administered on 06/12/19at 06:36; Start 06/12/19 at 07:00; Stop 06/12/19 at 11:01; Status DC Sodium Bicarbonate 50 meq/Sodium Chloride 1,050 ml @ 150 mls/hr Q7H IV Last ad ministered on 06/13/19at 04:16; Start 06/12/19 at 11:00; Stop 06/13/19 at 14:48; Status DC Amino Acids/ Glycerin/ Electrolytes 1,000 ml @ 80 mls/hr [id number] IV ; Start 06/12/19 at 10:00; Status UNV Amino Acids/ Electrolytes/ Dextrose 1,000 ml @ 80 mls/hr [id number] IV ; Start 06/12/19 at 10:15; Stop 06/18/19 at 13:50; Status DC Piperacillin Sod/ Tazobactam Sod (Zosyn Per Pharmacy) 1 each PRN DAILY PRN MC SEE COMMENTS; Start 06/12/19 at 13:15; Stop 06/12/19 at 19:16; Status DC Piperacillin Sod/ Tazobactam Sod 2.25 gm/Sodium Chloride 50 ml @ 100 mls/hr Q6HRS IV Last administered on 06/12/19at 13:48; Start 06/12/19 at 13:30; Stop 06/12/19 at 19:15; Status DC Sodium Bicarbonate (Sodium Bicarb Adult 8.4% Syr) 50 meq 1X ONCE IV Last administered on 06/12/19at 16:12; Start 06/12/19 at 16:00; Stop 06/12/19 at 16:01; Status DC Calcium Gluconate 1000 mg/Sodium Chloride 110 ml @ 220 mls/hr 1X ONCE IV Last administered on 06/12/19at 16:13; Start 06/12/19 at 16:00; Stop 06/12/19 at 16:29; Status DC Dextrose (Dextrose 50%-Water Syringe) 25 gm 1X ONCE IV Last administered on 06/12/19at 16:13; Start 06/12/19 at 16:00; Stop 06/12/19 at 16:01; Status DC Insulin Human Regular (HumuLIN R VIAL) 10 unit 1X ONCE IV Last administered on 06/12/19at 16:14; Start 06/12/19 at 16:00; Stop 06/12/19 at 16:01; Status DC Furosemide (Lasix) 40 mg 1X ONCE IVP Last administered on 06/12/19at 16:13; Start 06/12/19 at 16:00; Stop 06/12/19 at 16:01; Status DC Pantoprazole Sodium (PROTONIX VIAL for IV PUSH) 40 mg [id number] IVP Last adminis tered on 06/13/19at 06:21; Start 06/12/19 at 18:00; Stop 06/13/19 at 18:49; Status DC Meropenem 500 mg/ Sodium Chloride 50 ml @ 100 mls/hr Q12HR IV Last administered on 06/17/19at 20:59; Start 06/12/19 at 21:00; Stop 06/18/19 at 07:26; Status DC Calcium Gluconate 1000 mg/Sodium Chloride 110 ml @ 220 mls/hr 1X ONCE IV Last administered on 06/12/19at 20:35; Start 06/12/19 at 19:15; Stop 06/12/19 at 19:44; Status DC Lidocaine HCl (Buffered Lidocaine 1%) 3 ml STK-MED ONCE .ROUTE ; Start 06/13/19 at 08:47; Stop 06/13/19 at 08:47; Status DC Lidocaine HCl (Buffered Lidocaine 1%) 6 ml 1X ONCE INJ Last administered on 06/13/19at 09:23; Start 06/13/19 at 09:30; Stop 06/13/19 at 09:31; Status DC Insulin Human Lispro (HumaLOG) 0-7 UNITS TIDWMEALS SQ Last administered on 06/13/19at 12:14; Start 06/13/19 at 12:00; Stop 06/14/19 at 23:29; Status DC Dextrose (Dextrose 50%-Water Syringe) 12.5 gm PRN Q15MIN PRN IV SEE COMMENTS; Start 06/13/19 at 11:15; Stop 06/14/19 at 23:29; Status DC Insulin Human Regular 100 unit/ Sodium Chloride 101 ml @ 0 mls/hr CONT PRN IV SEE I/O RECORD Last administered on 06/13/19at 15:03; Start 06/13/19 at 14:15; Stop 06/21/19 at 12:37; Status DC Sodium Chloride 1,000 ml @ 1,000 mls/hr Q1H PRN IV hypotension; Start 06/13/19 at 14:00; Stop 06/13/19 at 19:59; Status DC Sodium Chloride 1,000 ml @ 400 mls/hr Q2H30M PRN IV PATENCY; Start 06/13/19 at 14:00; Stop 06/14/19 at 01:59; Status DC Info (PHARMACY MONITORING -- do not chart) 1 each PRN DAILY PRN MC SEE COMMENTS; Start 06/13/19 at 14:45; Stop 06/13/19 at 14:51; Status DC Info (PHARMACY MONITORING -- do not chart) 1 each PRN DAILY PRN MC SEE COMMENTS; Start 06/13/19 at 14:45; Stop 06/27/19 at 12:33; Status DC Pantoprazole Sodium (PROTONIX VIAL for IV PUSH) 40 mg [id number] IVP Last administ ered on 07/16/19at 06:07; Start 06/13/19 at 21:00 Dexmedetomidine HCl 400 mcg/ Sodium Chloride 100 ml @ 0 mls/hr CONT PRN IV PER PROTOCOL Last administered on 06/21/19at 05:52; Start 06/13/19 at 19:00; Stop 06/21/19 at 19:39; Status DC Sodium Chloride 500 ml @ 500 mls/hr 1X PRN PRN IV SEE COMMENTS; Start 06/13/19 at 19:00; Stop 07/05/19 at 08:01; Status DC Atropine Sulfate (ATROPINE 0.5mg SYRINGE) 0.5 mg PRN Q5MIN PRN IV SEE COMMENTS; Start 06/13/19 at 19:00; Stop 06/27/19 at 12:28; Status DC Sodium Chloride 1,000 ml @ 1,000 mls/hr Q1H PRN IV hypotension; Start 06/14/19 at 08:55; Stop 06/14/19 at 14:54; Status DC Albumin Human 200 ml @ 200 mls/hr 1X PRN PRN IV Hypotension Last administered on 06/14/19at 09:40; Start 06/14/19 at 09:00; Stop 06/14/19 at 14:59; Status DC Sodium Chloride 1,000 ml @ 400 mls/hr Q2H30M PRN IV PATENCY; Start 06/14/19 at 08:55; Stop 06/14/19 at 20:54; Status DC Info (PHARMACY MONITORING -- do not chart) 1 each PRN DAILY PRN MC SEE COMMENTS; Start 06/14/19 at 09:00; Stop 06/14/19 at 09:06; Status DC Info (PHARMACY MONITORING -- do not chart) 1 each PRN DAILY PRN MC SEE COMMENTS; Start 06/14/19 at 09:00; Stop 06/14/19 at 09:06; Status DC Calcium Chloride 2000 mg/Sodium Chloride 120 ml @ 240 mls/hr PRN QID PRN IV for CALCIUM < 5.8 Last administered on 06/15/19at 08:32; Start 06/14/19 at 10:15; Stop 06/15/19 at 09:58; Status DC Magnesium Sulfate 50 ml @ 25 mls/hr PRN DAILY PRN IV for Mag < 1.7 on am labs Last administered on 07/15/19at 08:52; Start 06/14/19 at 10:30 Norepinephrine Bitartrate 8 mg/ Dextrose 258 ml @ 20.027 mls/ hr CONT PRN IV PER PROTOCOL Last administered on 06/14/19at 10:31; Start 06/14/19 at 10:30 Succinylcholine Chloride (Anectine) 200 mg STK-MED ONCE .ROUTE ; Start 06/14/19 at 12:22; Stop 06/14/19 at 12:23; Status DC Etomidate (Amidate) 20 mg STK-MED ONCE IV ; Start 06/14/19 at 12:22; Stop 06/14/19 at 12:23; Status DC Fentanyl Citrate 30 ml @ 0 mls/hr CONT PRN IV SEE PROTOCOL Last administered on 06/19/19at 08:10; Start 06/14/19 at 12:45; Stop 06/19/19 at 11:00; Status DC Chlorhexidine Gluconate (Peridex) 15 ml BID MM Last administered on 06/30/19at 20:47; Start 06/14/19 at 21:00; Stop 07/01/19 at 16:34; Status DC Midazolam HCl 50 mg/Sodium Chloride 50 ml @ 0 mls/hr CONT PRN IV SEE PROTOCOL Last administered on 07/13/19at 10:19; Start 06/14/19 at 12:45; Stop 07/13/19 at 14:59; Status DC Midazolam HCl (Versed) 5 mg STK-MED ONCE .ROUTE ; Start 06/14/19 at 12:48; Stop 06/14/19 at 12:48; Status DC Fentanyl Citrate (Fentanyl 2ml Vial) 100 mcg STK-MED ONCE .ROUTE ; Start 06/14/19 at 12:48; Stop 06/14/19 at 12:48; Status DC Midazolam HCl (Versed) 5 mg 1X ONCE IV Last administered on 06/14/19at 12:59; Start 06/14/19 at 13:00; Stop 06/14/19 at 13:01; Status DC Fentanyl Citrate (Fentanyl 2ml Vial) 100 mcg 1X ONCE IM Last administered on 06/14/19at 12:58; Start 06/14/19 at 13:00; Stop 06/14/19 at 13:01; Status DC Succinylcholine Chloride (Anectine) 200 mg 1X ONCE IV Last administered on 06/14/19at 12:59; Start 06/14/19 at 13:00; Stop 06/14/19 at 13:01; Status DC Etomidate (Amidate) 14 mg 1X ONCE IV Last administered on 06/14/19at 12:59; Start 06/14/19 at 13:00; Stop 06/14/19 at 13:01; Status DC Acetaminophen (Tylenol Supp) 650 mg PRN Q6HRS PRN ME MILD PAIN / TEMP Last administered on 07/10/19at 15:03; Start 06/14/19 at 20:00 Linezolid/Dextrose 300 ml @ 300 mls/hr Q12HR IV Last administered on 07/03/19at 08:34; Start 06/14/19 at 21:00; Stop 07/03/19 at 09:09; Status DC Insulin Human Lispro (HumaLOG) 0-7 UNITS TIDWMEALS SQ ; Start 06/15/19 at 08:00; Stop 06/15/19 at 00:03; Status DC Dextrose (Dextrose 50%-Water Syringe) 12.5 gm PRN Q15MIN PRN IV SEE COMMENTS; Start 06/14/19 at 23:30; Stop 07/03/19 at 10:41; Status DC Insulin Human Lispro (HumaLOG) 0-7 UNITS Q4HRS SQ Last administered on 06/23/19at 08:05; Start 06/15/19 at 00:15; Stop 07/01/19 at 16:41; Status DC Calcium Gluconate 14887 mg/Sodium Chloride 494 ml @ 4.051 mls/ hr CONT PRN IV SYMPTOMATIC HYPOCALCEMIA; Start 06/15/19 at 09:30; Stop 06/15/19 at 09:23; Status DC Calcium Gluconate 5000 mg/Sodium Chloride 260 ml @ 5.543 mls/ hr CONT PRN IV SYMPTOMATIC HYPOCALCEMIA; Start 06/15/19 at 09:30; Stop 06/15/19 at 09:26; Status DC Calcium Gluconate 5000 mg/Sodium Chloride 260 ml @ 5.543 mls/ hr CONT PRN IV SYMPTOMATIC HYPOCALCEMIA; Start 06/15/19 at 09:30; Stop 06/15/19 at 09:29; Status DC Calcium Gluconate 5000 mg/Sodium Chloride 250 ml @ 28.782 mls/ hr CONT PRN IV SYMPTOMATIC HYPOCALCEMIA Last administered on 06/18/19at 06:12; Start 06/15/19 at 09:30; Stop 06/18/19 at 13:50; Status DC Lidocaine HCl (Lidocaine Pf 2% Vial) 5 ml STK-MED ONCE .ROUTE ; Start 06/14/19 at 12:00; Stop 06/17/19 at 10:37; Status DC Meropenem 500 mg/ Sodium Chloride 50 ml @ 100 mls/hr Q6HRS IV Last administered on 07/06/19at 12:12; Start 06/18/19 at 07:30; Stop 07/06/19 at 15:00; Status DC Nicardipine HCl 50 mg/Sodium Chloride 250 ml @ 25 mls/hr CONT PRN IV SEE I/O RECORD; Start 06/18/19 at 11:45; Stop 07/13/19 at 15:06; Status DC Metoprolol Tartrate (Lopressor Vial) 5 mg 1X ONCE IVP ; Start 06/18/19 at 12:15; Stop 06/18/19 at 12:16; Status DC Fentanyl Citrate (Fentanyl 600 Mcg/30 ml DRAPERY SEWER HAND) 600 mcg STK-MED ONCE IV ; Start 06/15/19 at 05:30; Stop 06/18/19 at 12:07; Status DC Enoxaparin Sodium (Lovenox 40mg Syringe) 40 mg Q24H SQ Last administered on 06/21/19at 23:02; Start 06/18/19 at 22:30; Stop 06/22/19 at 11:07; Status DC Fentanyl Citrate 55 ml @ 1.98 mls/hr CONT PRN IV SEE PROTOCOL; Start 06/19/19 at 08:15; Status Cancel Info (Tpn Per Pharmacy) 1 each PRN DAILY PRN MC SEE COMMENTS Last administered on 07/16/19at 11:42; Start 06/19/19 at 11:15 Hydralazine HCl (Apresoline Inj) 10 mg PRN Q4HRS PRN IVP ELEVATED BP, 1st choice Last administered on 07/15/19at 07:33; Start 06/19/19 at 11:45 Labetalol HCl (Normodyne Iv Push) 20 mg PRN Q2HR PRN IVP HYPERTENSION, 2nd choice Last administered on 06/26/19at 14:44; Start 06/19/19 at 11:45 Potassium Phosphate 13.6 mmol/Magnesium Sulfate 10 meq/ Calcium Gluconate 20 meq/ Multivitamins 10 ml/Chromium/ Copper/Manganese/ Seleni/Zn 0.5 ml/ Total Parenteral Nutrition/Amino Acids/Dextrose/ Fat Emulsion Intravenous 1,920 ml @ 80 mls/hr TPN CONT IV Last administered on 06/19/19at 21:31; Start 06/19/19 at 22:00; Stop 06/20/19 at 21:59; Status DC Fentanyl Citrate 30 ml @ 0 mls/hr CONT PRN IV SEE PROTOCOL Last administered on 06/24/19at 09:31; Start 06/19/19 at 18:00; Stop 06/24/19 at 11:38; Status DC Micafungin Sodium 100 mg/Dextrose 100 ml @ 100 mls/hr Q24H IV Last administered on 07/07/19at 08:19; Start 06/20/19 at 09:00; Stop 07/07/19 at 09:51; Status DC Potassium Phosphate 13.6 mmol/Calcium Gluconate 20 meq/ Multivitamins 10 ml/Chromium/ Copper/Manganese/ Seleni/Zn 0.5 ml/ Insulin Human Regular 10 unit/ Total Parenteral Nutrition/Amino Acids/Dextrose/ Fat Emulsion Intravenous 1,920 ml @ 80 mls/hr TPN CONT IV Last administered on 06/20/19at 21:57; Start 06/20/19 at 22:00; Stop 06/21/19 at 21:59; Status DC Insulin Glargine (Lantus Syringe) 15 unit QHS SQ Last administered on 06/20/19at 20:46; Start 06/20/19 at 21:00; Stop 06/21/19 at 12:32; Status DC Insulin Glargine (Lantus Syringe) 20 unit QHS SQ Last administered on 07/02/19at 20:46; Start 06/21/19 at 21:00; Stop 07/03/19 at 10:39; Status DC Potassium Phosphate 13.6 mmol/Calcium Gluconate 20 meq/ Multivitamins 10 ml/Chromium/ Copper/Manganese/ Seleni/Zn 0.5 ml/ Insulin Human Regular 10 unit/ Total Parenteral Nutrition/Amino Acids/Dextrose/ Fat Emulsion Intravenous 1,920 ml @ 80 mls/hr TPN CONT IV Last administered on 06/21/19at 21:31; Start 06/21/19 at 22:00; Stop 06/22/19 at 21:59; Status DC Dextrose 1,000 ml @ 75 mls/hr [id number] IV Last administered on 06/27/19at 01:32; Start 06/22/19 at 07:00; Stop 06/27/19 at 12:43; Status DC Albuterol Sulfate (Ventolin Neb Soln) 2.5 mg RTQID NEB Last administered on 07/16/19at 12:28; Start 06/22/19 at 08:00 Iohexol (Omnipaque 240 Mg/ml) 30 ml 1X ONCE PO ; Start 06/22/19 at 08:00; Stop 06/22/19 at 08:05; Status DC Iohexol (Omnipaque 300 Mg/ml) 75 ml 1X ONCE IV ; Start 06/22/19 at 08:00; Stop 06/22/19 at 08:01; Status Cancel Info (CONTRAST GIVEN -- Rx MONITORING) 1 each PRN DAILY PRN MC SEE COMMENTS; Start 06/22/19 at 08:15; Stop 06/24/19 at 08:14; Status DC Cefoxitin Sodium (Mefoxin) 2 gm 1X PREOP IVP ; Start 06/22/19 at 11:00; Stop 06/22/19 at 11:16; Status DC Cefoxitin Sodium (Mefoxin) 2 gm 1X PREOP ONCE IVP Last administered on 06/22/19at 11:37; Start 06/22/19 at 11:30; Stop 06/22/19 at 11:31; Status DC Rocuronium [place] (Zemuron) 50 mg STK-MED ONCE .ROUTE ; Start 06/22/19 at 11:42; Stop 06/22/19 at 11:42; Status DC Propofol 20 ml @ As Directed STK-MED ONCE IV ; Start 06/22/19 at 11:42; Stop 06/22/19 at 11:43; Status DC Dexamethasone Sodium Phosphate (Decadron) 4 mg STK-MED ONCE .ROUTE ; Start 06/22/19 at 11:45; Stop 06/22/19 at 11:45; Status DC Ondansetron HCl (Zofran) 4 mg STK-MED ONCE .ROUTE ; Start 06/22/19 at 11:45; Stop 06/22/19 at 11:45; Status DC Potassium Phosphate 13.6 mmol/Magnesium Sulfate 5 meq/ Calcium Gluconate 20 meq/ Multivitamins 10 ml/Chromium/ Copper/Manganese/ Seleni/Zn 0.5 ml/ Total Parenteral Nutrition/Amino Acids/Dextrose/ Fat Emulsion Intravenous 1,920 ml @ 80 mls/hr TPN CONT IV Last administered on 06/22/19at 22:14; Start 06/22/19 at 22:00; Stop 06/23/19 at 21:59; Status DC Rocuronium [place] (Zemuron) 100 mg STK-MED ONCE .ROUTE ; Start 06/22/19 at 13:05; Stop 06/22/19 at 13:06; Status DC Cellulose (Surgicel Hemostat 4x8) 1 each STK-MED ONCE .ROUTE Last administered on 06/22/19at 12:46; Start 06/22/19 at 13:14; Stop 06/22/19 at 13:14; Status DC Albumin Human 500 ml @ As Directed STK-MED ONCE IV ; Start 06/22/19 at 13:25; Stop 06/22/19 at 13:25; Status DC Sevoflurane (Ultane) 90 ml STK-MED ONCE IH ; Start 06/22/19 at 13:53; Stop 06/22/19 at 13:53; Status DC Cellulose (Surgicel Hemostat 4x8) 1 each STK-MED ONCE TP Last administered on 06/22/19at 12:46; Start 06/22/19 at 12:46; Stop 06/22/19 at 14:25; Status DC Cellulose (Surgicel Hemostat 4x8) 1 each STK-MED ONCE TP Last administered on 06/22/19at 12:46; Start 06/22/19 at 12:46; Stop 06/22/19 at 14:25; Status DC Rocuronium [place] (Zemuron) 50 mg STK-MED ONCE .ROUTE ; Start 06/22/19 at 14:52; Stop 06/22/19 at 14:52; Status DC Vecuronium [place] 50 mg/ Miscellaneous 50 ml @ 4.925 mls/ hr CONT PRN IV SEE PROTOCOL Last administered on 06/25/19at 05:19; Start 06/22/19 at 15:00 Enoxaparin Sodium (Lovenox 40mg Syringe) 40 mg Q24H SQ Last administered on 07/16/19at 05:42; Start 06/23/19 at 06:00 Sodium Chloride (Normal Saline Flush) 3 ml QSHIFT PRN IV AFTER MEDS AND BLOOD DRAWS; Start 06/22/19 at 15:45 Ringer's Solution 1,000 ml @ 100 mls/hr Q10H IV Last administered on 06/23/19at 22:06; Start 06/22/19 at 15:39; Stop 06/24/19 at 17:46; Status DC Naloxone HCl (Narcan) 0.4 mg PRN Q2MIN PRN IV SEE INSTRUCTIONS Last administered on 07/15/19at 07:58; Start 06/22/19 at 15:45 Sodium Chloride 1,000 ml @ 25 mls/hr Q24H IV Last administered on 07/16/19at 14:55; Start 06/22/19 at 15:39 Morphine Sulfate (Morphine Sulfate) 1 mg PRN Q1HR PRN IV MODERATE PAIN Last administered on 07/15/19at 08:48; Start 06/22/19 at 15:45 Ondansetron HCl (Zofran) 4 mg PRN Q6HRS PRN IVP NAUESA, 1ST CHOICE; Start 06/22/19 at 15:45 Calcium Gluconate (Calcium Gluconate) 1,000 mg 1X ONCE IVP ; Start 06/22/19 at 19:45; Stop 06/22/19 at 20:15; Status DC Sodium Bicarbonate (Sodium Bicarb Adult 8.4% Syr) 50 meq 1X ONCE IV Last administered on 06/22/19at 20:37; Start 06/22/19 at 19:45; Stop 06/22/19 at 19:57; Status DC Dextrose (Dextrose 50%-Water Syringe) 25 gm 1X ONCE IV Last administered on 06/22/19at 20:37; Start 06/22/19 at 19:45; Stop 06/22/19 at 19:57; Status DC Insulin Human Regular (HumuLIN R VIAL) 10 unit 1X ONCE IV Last administered on 06/22/19at 20:45; Start 06/22/19 at 19:45; Stop 06/22/19 at 19:57; Status DC Calcium Gluconate 1000 mg/Sodium Chloride 110 ml @ 220 mls/hr 1X ONCE IV Last administered on 06/22/19at 20:36; Start 06/22/19 at 20:15; Stop 06/22/19 at 20:44; Status DC Insulin Human Regular 100 unit/ Sodium Chloride 101 ml @ 0 mls/hr CONT PRN IV SEE I/O RECORD Last administered on 07/02/19at 18:55; Start 06/23/19 at 12:15; Stop 07/03/19 at 10:39; Status DC Sodium Phosphate 10 mmol/Magnesium Sulfate 5 meq/ Calcium Gluconate 15 meq/ Multivitamins 10 ml/Chromium/ Copper/Manganese/ Seleni/Zn 0.5 ml/ Insulin Human Regular 10 unit/ Total Parenteral Nutrition/Amino Acids/Dextrose/ Fat Emulsion Intravenous 1,920 ml @ 80 mls/hr TPN CONT IV Last administered on 06/23/19at 22:20; Start 06/23/19 at 22:00; Stop 06/24/19 at 21:59; Status DC Fentanyl Citrate 55 ml @ 1.98 mls/hr CONT PRN IV SEE PROTOCOL Last administered on 07/15/19at 22:24; Start 06/24/19 at 11:45 Sodium Phosphate 10 mmol/Magnesium Sulfate 5 meq/ Calcium Gluconate 15 meq/ Multivitamins 10 ml/Chromium/ Copper/Manganese/ Seleni/Zn 0.5 ml/ Total Parenteral Nutrition/Amino Acids/Dextrose/ Fat Emulsion Intravenous 1,920 ml @ 80 mls/hr TPN CONT IV Last administered on 06/24/19at 22:26; Start 06/24/19 at 22:00; Stop 06/25/19 at 21:59; Status DC Sodium Phosphate 10 mmol/Magnesium Sulfate 5 meq/ Calcium Gluconate 15 meq/ Multivitamins 10 ml/Chromium/ Copper/Manganese/ Seleni/Zn 0.5 ml/ Total Parenteral Nutrition/Amino Acids/Dextrose/ Fat Emulsion Intravenous 1,920 ml @ 80 mls/hr TPN CONT IV Last administered on 06/25/19at 22:27; Start 06/25/19 at 22:00; Stop 06/26/19 at 21:59; Status DC Sodium Phosphate 10 mmol/Magnesium Sulfate 5 meq/ Calcium Gluconate 15 meq/ Multivitamins 10 ml/Chromium/ Copper/Manganese/ Seleni/Zn 0.5 ml/ Total Parenteral Nutrition/Amino Acids/Dextrose/ Fat Emulsion Intravenous 1,920 ml @ 80 mls/hr TPN CONT IV Last administered on 06/26/19at 21:57; Start 06/26/19 at 22:00; Stop 06/27/19 at 21:59; Status DC Furosemide (Lasix) 60 mg 1X ONCE IVP Last administered on 06/26/19at 12:22; Start 06/26/19 at 12:30; Stop 06/26/19 at 12:31; Status DC Dexmedetomidine HCl 400 mcg/ Sodium Chloride 100 ml @ 0 mls/hr CONT PRN IV SEDATION ON VENT Last administered on 07/16/19at 14:50; Start 06/26/19 at 19:00 Sodium Chloride 500 ml @ 500 mls/hr 1X PRN PRN IV SEE COMMENTS; Start 06/26/19 at 19:00 Atropine Sulfate (ATROPINE 0.5mg SYRINGE) 0.5 mg PRN Q5MIN PRN IV SEE COMMENTS; Start 06/26/19 at 19:00 Sodium Bicarbonate (Sodium Bicarb Adult 8.4% Syr) 50 meq 1X ONCE IV ; Start 06/26/19 at 19:30; Stop 06/26/19 at 19:23; Status DC Furosemide (Lasix) 40 mg DAILY IVP Last administered on 07/16/19at 07:32; Start 06/27/19 at 12:00 Propofol 100 ml @ As Directed STK-MED ONCE IV ; Start 06/27/19 at 11:51; Stop 06/27/19 at 11:51; Status DC Propofol 100 ml @ 6.588 mls/ hr CONT PRN IV SEE I/O RECORD Last administered on 07/05/19at 12:08; Start 06/27/19 at 12:00 Sodium Phosphate 10 mmol/Magnesium Sulfate 5 meq/ Calcium Gluconate 15 meq/ Multivitamins 10 ml/Chromium/ Copper/Manganese/ Seleni/Zn 0.5 ml/ Total Parenteral Nutrition/Amino Acids/Dextrose/ Fat Emulsion Intravenous 1,920 ml @ 80 mls/hr TPN CONT IV ; Start 06/27/19 at 22:00; Stop 06/27/19 at 12:55; Status DC Potassium Phosphate 10 mmol/ Magnesium Sulfate 5 meq/Calcium Gluconate 15 meq/ Multivitamins 10 ml/Chromium/ Copper/Manganese/ Seleni/Zn 0.5 ml/ Total Parenteral Nutrition/Amino Acids/Dextrose/ Fat Emulsion Intravenous 1,920 ml @ 80 mls/hr TPN CONT IV Last administered on 06/27/19at 21:38; Start 06/27/19 at 22:00; Stop 06/28/19 at 21:59; Status DC Potassium Chloride/Water 100 ml @ 50 mls/hr 1X ONCE IV Last administered on 06/28/19at 15:00; Start 06/28/19 at 15:00; Stop 06/28/19 at 16:59; Status DC Potassium Phosphate 10 mmol/ Magnesium Sulfate 5 meq/Calcium Gluconate 15 meq/ Multivitamins 10 ml/Chromium/ Copper/Manganese/ Seleni/Zn 0.5 ml/ Potassium Acetate 20 meq/Total Parenteral Nutrition/Amino Acids/Dextrose/ Fat Emulsion Intravenous 1,920 ml @ 80 mls/hr TPN CONT IV Last administered on 06/28/19at 22:14; Start 06/28/19 at 22:00; Stop 06/29/19 at 21:59; Status DC Potassium Chloride/Water 100 ml @ 50 mls/hr 1X ONCE IV Last administered on 06/29/19at 08:57; Start 06/29/19 at 09:00; Stop 06/29/19 at 10:59; Status DC Potassium Phosphate 10 mmol/ Magnesium Sulfate 5 meq/Calcium Gluconate 15 meq/ Multivitamins 10 ml/Chromium/ Copper/Manganese/ Seleni/Zn 0.5 ml/ Potassium Ac etate 20 meq/Total Parenteral Nutrition/Amino Acids/Dextrose/ Fat Emulsion Intravenous 1,920 ml @ 80 mls/hr TPN CONT IV Last administered on 06/29/19at 21:32; Start 06/29/19 at 22:00; Stop 06/30/19 at 21:59; Status DC Potassium Phosphate 10 mmol/ Magnesium Sulfate 5 meq/Calcium Gluconate 15 meq/ Multivitamins 10 ml/Chromium/ Copper/Manganese/ Seleni/Zn 0.5 ml/ Potassium Acetate 20 meq/Total Parenteral Nutrition/Amino Acids/Dextrose 1,920 ml @ 80 mls/hr TPN CONT IV Last administered on 06/30/19at 21:38; Start 06/30/19 at 22:00; Stop 07/01/19 at 21:59; Status DC Potassium Phosphate 10 mmol/ Magnesium Sulfate 5 meq/Calcium Gluconate 15 meq/ Multivitamins 10 ml/Chromium/ Copper/Manganese/ Seleni/Zn 0.5 ml/ Potassium Acetate 10 meq/Total Parenteral Nutrition/Amino Acids/Dextrose 1,920 ml @ 80 mls/hr TPN CONT IV Last administered on 07/01/19at 21:30; Start 07/01/19 at 22:00; Stop 07/02/19 at 21:59; Status DC Potassium Phosphate 10 mmol/ Magnesium Sulfate 5 meq/Calcium Gluconate 15 meq/ Multivitamins 10 ml/Chromium/ Copper/Manganese/ Seleni/Zn 0.5 ml/ Potassium Acetate 10 meq/Total Parenteral Nutrition/Amino Acids/Dextrose 1,920 ml @ 80 mls/hr TPN CONT IV Last administered on 07/02/19at 21:36; Start 07/02/19 at 22:00; Stop 07/03/19 at 21:59; Status DC Daptomycin 520 mg/ Sodium Chloride 50 ml @ 100 mls/hr Q24H IV Last administered on 07/13/19at 09:57; Start 07/03/19 at 10:00; Stop 07/14/19 at 09:26; Status DC Insulin Glargine (Lantus Syringe) 30 unit BID SQ Last administered on 07/16/19at 08:39; Start 07/03/19 at 11:00 Insulin Human Lispro (HumaLOG) 0-9 UNITS Q6HRS SQ Last administered on 07/16/19at 12:05; Start 07/03/19 at 12:00 Dextrose (Dextrose 50%-Water Syringe) 12.5 gm PRN Q15MIN PRN IV SEE COMMENTS; Start 07/03/19 at 10:30 Potassium Acetate 10 meq/Potassium Phosphate 10 mmol/ Magnesium Sulfate 5 meq/Calcium Gluconate 15 meq/ Multivitamins 10 ml/Chromium/ Copper/Manganese/ Seleni/Zn 0.5 ml/ Total Parenteral Nutrition/Amino Acids/Dextrose 1,920 ml @ 80 mls/hr TPN CONT IV Last administered on 07/03/19at 21:26; Start 07/03/19 at 22:00; Stop 07/04/19 at 21:59; Status DC Linezolid/Dextrose 300 ml @ 300 mls/hr Q12HR IV Last administered on 07/16/19at 07:33; Start 07/04/19 at 09:00 Potassium Acetate 10 meq/Potassium Phosphate 10 mmol/ Magnesium Sulfate 5 me q/Calcium Gluconate 15 meq/ Multivitamins 10 ml/Chromium/ Copper/Manganese/ Seleni/Zn 0.5 ml/ Total Parenteral Nutrition/Amino Acids/Dextrose 1,920 ml @ 80 mls/hr TPN CONT IV Last administered on 07/04/19at 21:13; Start 07/04/19 at 22:00; Stop 07/05/19 at 21:59; Status DC Lidocaine HCl (Buffered Lidocaine 1%) 3 ml STK-MED ONCE .ROUTE ; Start 07/04/19 at 14:23; Stop 07/04/19 at 14:23; Status DC Iohexol (Omnipaque 240 Mg/ml) 50 ml STK-MED ONCE .ROUTE ; Start 07/04/19 at 14:23; Stop 07/04/19 at 14:24; Status DC Lidocaine HCl (Buffered Lidocaine 1%) 3 ml 1X ONCE INJ Last administered on 07/04/19at 15:34; Start 07/04/19 at 14:30; Stop 07/04/19 at 14:31; Status DC Iohexol (Omnipaque 240 Mg/ml) 50 ml 1X ONCE IJ Last administered on 07/04/19at 15:33; Start 07/04/19 at 14:30; Stop 07/04/19 at 14:31; Status DC Info (CONTRAST GIVEN -- Rx MONITORING) 1 each PRN DAILY PRN MC SEE COMMENTS; Start 07/04/19 at 14:30; Stop 07/06/19 at 14:29; Status DC Potassium Acetate 10 meq/Potassium Phosphate 10 mmol/ Magnesium Sulfate 5 meq/Calcium Gluconate 15 meq/ Multivitamins 10 ml/Chromium/ Copper/Manganese/ Seleni/Zn 0.5 ml/ Total Parenteral Nutrition/Amino Acids/Dextrose 1,920 ml @ 80 mls/hr TPN CONT IV Last administered on 07/05/19at 20:59; Start 07/05/19 at 22:00; Stop 07/06/19 at 21:59; Status DC Potassium Acetate 10 meq/Potassium Phosphate 10 mmol/ Magnesium Sulfate 5 meq/Calcium Gluconate 15 meq/ Multivitamins 10 ml/Chromium/ Copper/Manganese/ Seleni/Zn 0.5 ml/ Total Parenteral Nutrition/Amino Acids/Dextrose 1,920 ml @ 80 mls/hr TPN CONT IV Last administered on 07/06/19at 22:51; Start 07/06/19 at 22:00; Stop 07/07/19 at 21:59; Status DC Cefepime HCl (Maxipime) 2 gm Q8HRS IVP Last administered on 07/16/19at 12:33; Start 07/06/19 at 22:00 Metronidazole 100 ml @ 100 mls/hr Q8HRS IV Last administered on 07/16/19at 14:45; Start 07/06/19 at 22:00 Lidocaine HCl (Buffered Lidocaine 1%) 3 ml STK-MED ONCE .ROUTE ; Start 07/07/19 at 10:07; Stop 07/07/19 at 10:07; Status DC Iohexol (Omnipaque 240 Mg/ml) 50 ml STK-MED ONCE .ROUTE ; Start 07/07/19 at 10:07; Stop 07/07/19 at 10:07; Status DC Potassium Acetate 10 meq/Potassium Phosphate 10 mmol/ Magnesium Sulfate 10 meq/Calcium Gluconate 10 meq/ Multivitamins 10 ml/Chromium/ Copper/Manganese/ Seleni/Zn 0.5 ml/ Total Parenteral Nutrition/Amino Acids/Dextrose 1,920 ml @ 80 mls/hr TPN CONT IV Last administered on 07/07/19at 21:50; Start 07/07/19 at 22:00; Stop 07/08/19 at 21:59; Status DC Lidocaine HCl (Buffered Lidocaine 1%) 4 ml 1X ONCE IJ Last administered on 07/07/19at 12:50; Start 07/07/19 at 14:00; Stop 07/07/19 at 14:01; Status DC Iohexol (Omnipaque 240 Mg/ml) 10 ml 1X ONCE IJ Last administered on 07/07/19at 12:50; Start 07/07/19 at 14:00; Stop 07/07/19 at 14:01; Status DC Multi-Ingred Cream/Lotion/Oil/ Oint (Artificial Tears Eye Ointment) 1 devorah PRN Q1HR PRN OU DRY EYE; Start 07/08/19 at 10:30 Potassium Acetate 10 meq/Potassium Phosphate 10 mmol/ Magnesium Sulfate 10 meq/Calcium Gluconate 10 meq/ Multivitamins 10 ml/Chromium/ Copper/Manganese/ Seleni/Zn 0.5 ml/ Total Parenteral Nutrition/Amino Acids/Dextrose/ Fat Emulsion Intravenous 1,635 ml @ 68.125 mls/ hr TPN CONT IV Last administered on at 21:47; Start 07/08/19 at 22:00; Stop 07/09/19 at 21:59; Status DC Potassium Acetate 15 meq/Potassium Phosphate 15 mmol/ Magnesium Sulfate 10 meq/Calcium Gluconate 10 meq/ Multivitamins 10 ml/Chromium/ Copper/Manganese/ Seleni/Zn 0.5 ml/ Total Parenteral Nutrition/Amino Acids/Dextrose/ Fat Emulsion Intravenous 1,920 ml @ 80 mls/hr TPN CONT IV Last administered on 07/09/19at 21:39; Start 07/09/19 at 22:00; Stop 07/10/19 at 21:59; Status DC Potassium Acetate 15 meq/Potassium Phosphate 15 mmol/ Magnesium Sulfate 10 meq/Calcium Gluconate 10 meq/ Multivitamins 10 ml/Chromium/ Copper/Manganese/ Seleni/Zn 0.5 ml/ Total Parenteral Nutrition/Amino Acids/Dextrose/ Fat Emulsion Intravenous 1,920 ml @ 80 mls/hr TPN CONT IV Last administered on 07/10/19at 21:48; Start 07/10/19 at 22:00; Stop 07/11/19 at 21:59; Status DC Potassium Acetate 15 meq/Potassium Phosphate 15 mmol/ Magnesium Sulfate 10 meq/Calcium Gluconate 10 meq/ Multivitamins 10 ml/Chromium/ Copper/Manganese/ Seleni/Zn 0.5 ml/ Total Parenteral Nutrition/Amino Acids/Dextrose/ Fat Emulsion Intravenous 1,920 ml @ 80 mls/hr TPN CONT IV Last administered on 07/11/19at 21:32; Start 07/11/19 at 22:00; Stop 07/12/19 at 21:59; Status DC Lidocaine HCl (Buffered Lidocaine 1%) 6 ml 1X ONCE INJ Last administered on 07/11/19at 14:00; Start 07/11/19 at 14:00; Stop 07/11/19 at 14:02; Status DC Lidocaine HCl (Buffered Lidocaine 1%) 3 ml STK-MED ONCE .ROUTE ; Start 07/11/19 at 13:56; Stop 07/11/19 at 14:13; Status DC Potassium Acetate 15 meq/Potassium Phosphate 15 mmol/ Magnesium Sulfate 10 meq/Calcium Gluconate 10 meq/ Multivitamins 10 ml/Chromium/ Copper/Manganese/ Seleni/Zn 0.5 ml/ Total Parenteral Nutrition/Amino Acids/Dextrose/ Fat Emulsion Intravenous 1,920 ml @ 80 mls/hr TPN CONT IV Last administered on 07/12/19at 21:39; Start 07/12/19 at 22:00; Stop 07/13/19 at 21:59; Status DC Midazolam HCl 100 mg/Sodium Chloride 100 ml @ 9 mls/hr CONT PRN IV SEE PROTOCOL Last administered on 07/16/19at 07:29; Start 07/13/19 at 15:00 Potassium Acetate 15 meq/Potassium Phosphate 15 mmol/ Magnesium Sulfate 10 meq/Calcium Gluconate 10 meq/ Multivitamins 10 ml/Chromium/ Copper/Manganese/ Seleni/Zn 0.5 ml/ Total Parenteral Nutrition/Amino Acids/Dextrose/ Fat Emulsion Intravenous 1,920 ml @ 80 mls/hr TPN CONT IV Last administered on 07/13/19at 22:17; Start 07/13/19 at 22:00; Stop 07/14/19 at 21:59; Status DC Potassium Acetate 15 meq/Potassium Phosphate 15 mmol/ Magnesium Sulfate 10 meq/Calcium Gluconate 10 meq/ Multivitamins 10 ml/Chromium/ Copper/Manganese/ Seleni/Zn 0.5 ml/ Total Parenteral Nutrition/Amino Acids/Dextrose/ Fat Emulsion Intravenous 1,920 ml @ 80 mls/hr TPN CONT IV Last administered on 07/14/19at 22:16; Start 07/14/19 at 22:00; Stop 07/15/19 at 21:59; Status DC Metoprolol Tartrate (Lopressor Vial) 5 mg PRN Q6HRS PRN IVP TACHYCARDIA; Start 07/15/19 at 12:30 Potassium Acetate 15 meq/Potassium Phosphate 18 mmol/ Magnesium Sulfate 15 meq/Calcium Gluconate 10 meq/ Multivitamins 10 ml/Chromium/ Copper/Manganese/ Seleni/Zn 0.5 ml/ Total Parenteral Nutrition/Amino Acids/Dextrose/ Fat Emulsion Intravenous 1,920 ml @ 80 mls/hr TPN CONT IV Last administered on 07/15/19at 22:10; Start 07/15/19 at 22:00; Stop 07/16/19 at 21:59 Potassium Acetate 15 meq/Potassium Phosphate 18 mmol/ Magnesium Sulfate 15 meq/Calcium Gluconate 10 meq/ Multivitamins 10 ml/Chromium/ Copper/Manganese/ Seleni/Zn 0.5 ml/ Total Parenteral Nutrition/Amino Acids/Dextrose/ Fat Emulsion Intravenous 1,920 ml @ 80 mls/hr TPN CONT IV ; Start 07/16/19 at 22:00; Stop 07/17/19 at 21:59 Bisacodyl (Dulcolax Supp) 10 mg 1X ONCE ME Last administered on 07/16/19at 14:50; Start 07/16/19 at 12:30; Stop 07/16/19 at 12:31; Status DC Sodium Phosphate 15 mmol/Sodium Chloride 105 ml @ 105 mls/hr 1X ONCE IV Last administered on 07/16/19at 12:33; Start 07/16/19 at 14:00; Stop 07/16/19 at 14:59; Status DC Active Scripts Active Vitals/I & O Vital Sign - Last 24 Hours 07/15/19 07/15/19 07/15/19 07/15/19 16:00 16:00 17:00 18:00 Temp 98.6 98.6 Pulse 100 100 100 Resp 22 B/P (MAP) 101/59 (73) 96/57 (70) 95/60 (72) Pulse Ox 100 100 100 O2 Delivery Mechanical Ventilator 07/15/19 07/15/19 07/15/19 07/15/19 19:00 20:00 20:00 20:11 Temp 99.9 99.9 Pulse 94 94 Resp B/P (MAP) 99/62 (74) 97/57 (70) Pulse Ox 100 100 100 O2 Delivery Ventilator Mechanical Ventilator Ventilator V60 AVAPS 07/15/19 07/15/19 07/15/19 07/15/19 21:00 22:00 22:24 22:54 Pulse 92 88 Resp 20 B/P (MAP) 96/61 (73) 100/59 (73) Pulse Ox 100 100 100 50 O2 Delivery Ventilator Ventilator Ventilator 07/15/19 07/15/19 07/15/19 07/15/19 23:00 23:18 23:59 23:59 Temp 99.0 99.0 Pulse 98 86 Resp B/P (MAP) 95/53 (67) 93/55 (68) Pulse Ox 100 100 100 O2 Delivery Ventilator V60 AVAPS Ventilator Mechanical Ventilator 07/16/19 07/16/19 07/16/19 07/16/19 01:00 02:00 03:00 03:38 Pulse 86 86 87 Resp 20 B/P (MAP) 96/59 (71) 102/65 (77) 113/67 (82) Pulse Ox 100 100 100 100 O2 Delivery Ventilator Ventilator Ventilator V60 AVAPS 07/16/19 07/16/19 07/16/19 07/16/19 04:00 04:00 05:00 06:00 Temp 99.8 99.8 Pulse 111 87 111 Resp B/P (MAP) 145/86 (105) 115/75 (88) Pulse Ox 100 100 100 O2 Delivery Mechanical Ventilator Ventilator Ventilator Ventilator 07/16/19 07/16/19 07/16/19 07/16/19 07:00 07:32 08:00 08:00 Pulse 94 109 Resp B/P (MAP) 121/73 (89) 134/74 (94) Pulse Ox 100 100 100 O2 Delivery Ventilator V60 AVAPS AVAPS Mechanical Ventilator 07/16/19 07/16/19 07/16/19 07/16/19 08:48 09:00 10:00 11:00 Temp 98.1 98.1 Pulse 98 89 89 Resp 22 22 22 B/P (MAP) 97/59 (72) 83/49 (60) 83/49 (60) Pulse Ox 100 100 100 100 O2 Delivery V60 AVAPS AVAPS AVAPS AVAPS 07/16/19 07/16/19 07/16/19 07/16/19 12:00 12:00 12:28 13:00 Temp 98.3 98.3 Pulse 91 89 Resp 22 22 B/P (MAP) 95/56 (69) 105/68 (80) Pulse Ox 100 100 100 O2 Delivery AVAPS Mechanical Ventilator V60 AVAPS AVAPS 07/16/19 14:00 Pulse 101 Resp 24 B/P (MAP) 126/76 (93) Pulse Ox 100 O2 Delivery AVAPS Intake and Output 07/15/19 07/15/19 07/16/19 15:00 23:00 07:00 Intake Total 820 ml 429 ml Output Total 1425 ml 1115 ml 1060 ml Balance -1425 ml -295 ml -631 ml Hemodynamically unstable?: No Is patient in severe pain?: No Is NPO status required?: Yes BRENDA JONAS MD Jul 16, 2019 15:53
[2019-07-16] MEDS: fentaNYL HIGH DOSE PCA 55 ML IV PRN (19:58)
[2019-07-16] MEDS: ACETAMINOPHEN 650 MG SUPP.RECT. PR PRN (20:46)
[2019-07-16] MEDS ORDERED: [UNRECOGNIZED DRUG - OTHER] IV SCH ×9 (22:00)
[2019-07-16] MEDS ORDERED: DEXTROSE 70% IV SCH ×9 (22:00)
[2019-07-16] MEDS ORDERED: TOTAL PARENTERAL NUTRITION IV SCH ×9 (22:00)
[2019-07-16] MEDS ORDERED: AMINO ACID IV SCH ×9 (22:00)
[2019-07-17] VITALS (23 sets, daily range): BP systolic 95–158; BP diastolic 49–94
[2019-07-17] MEDS: INSULIN LISPRO 300 UNITS/3 ML VIAL. SQ SCH ×5 (00:10→22:56)
[2019-07-17] MEDS: DEXMEDETOMIDINE 400 MCG in IV NORMAL SALINE 100ML 96 ML IV PRN ×6 (01:53→20:57)
[2019-07-17] MEDS: MIDAZOLAM HCL 100 MG in IV NORMAL SALINE 100ML 100 ML IV PRN ×2 (01:53→09:36)
[2019-07-17] MEDS: PANTOPRAZOLE IV PUSH 40 MG VIAL. IVP SCH ×2 (06:11→17:44)
[2019-07-17] MEDS: CEFEPIME HCL IV Push 2 GM VIAL. IVP SCH ×3 (06:13→22:33)
[2019-07-17] MEDS: ENOXAPARIN 40 MG/0.4 ML SYRINGE. SQ SCH (06:21)
[2019-07-17 07:36] LABS: CALCIUM 7.9 mg/dL (8.5-10.1); CREATININE 0.9 mg/dL (0.7-1.3); GFR 108.5; PHOSPHORUS 2.3 mg/dL (2.6-4.7); POTASSIUM 4.3 mmol/L (3.5-5.1)
--- NOTE | 2019-07-17 07:49 | PDOC ---
Infectious Disease Note Subjective Subjective Trach/vent FiO2 40% TPN ROS ROS 101 fever Vital Sign Vital Signs Vital Signs Date Time Temp Pulse Resp B/P (MAP) Pulse Ox O2 Delivery O2 Flow Rate FiO2 07/17/19 07:00 116 28 158/87 (110) 100 AVAPS 07/17/19 04:00 99.4 99.4 Physical Exam PHYSICAL EXAM GENERAL: Sedated, trached/vent, HEENT: Pupils equal reactive - mild icteric NECK: Trach LUNGS: Diminished aeration bases HEART: S1, S2, regular ABDOMEN: Distended, bowel sounds quiet, drains x5, wound vac in place : Maria in place EXTREMITIES: 1+ edema, no cyanosis. SCDs bilaterally SKIN: Warm, moist. 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 Labs Lab Laboratory Tests Test 07/16/19 12:02 07/16/19 17:28 07/17/19 00:06 07/17/19 06:00 Glucose (Fingerstick) 204 mg/dL (70-99) 214 mg/dL (70-99) 208 mg/dL (70-99) Sodium Level 140 mmol/L (136-145) Potassium Level 4.3 mmol/L (3.5-5.1) Chloride Level 105 mmol/L (98-107) Carbon Dioxide Level 29 mmol/L (21-32) Anion Gap 6 (6-14) Blood Urea Nitrogen 23 mg/dL (8-26) Creatinine 0.9 mg/dL (0.7-1.3) Estimated GFR (Cockcroft-Gault) 108.5 Glucose Level 224 mg/dL (70-99) Calcium Level 7.9 mg/dL (8.5-10.1) Phosphorus Level 2.3 mg/dL (2.6-4.7) Test 07/17/19 06:17 Glucose (Fingerstick) 229 mg/dL (70-99) Micro Microbiology 06/20/19 Blood Culture - Preliminary, Resulted NO GROWTH AFTER 2 DAYS Objective Assessment Fever - ? ileus/pancreatitis/abd distension/pleural effusion/occlusive clot in cephalic - blood cults 07/05 - neg - lines chg'd 07/06 LIJ Leukocytosis - better - ? reactive given procedure 07/06, better Left pleural effusion s/p thoracentesis, 3/27 - PH 7.34, nucleated cells 1580, RBC 44177. glu 149,TP 3.2, LDH 269. cultures pending Gallbladder stone pancreatitis s/p expl lap, pancreatic necrosectomy, cholecystostomy tube placement, G-tube placement with jejunal extension, 06/21 -gastrostomy tube repositioned by IR 07/03; s/p Jejunostomy placement 07/06 per nursing, no report Intra-abd fluid collections Sepsis from GI - cult neg Acute Resp failure - s/p trach 06/21, vent dependent Lactic acidosis. Acute kidney injury previously requiring dialysis - now with improved UOP, HDC now out Metabolic acidosis. Hypocalcemia Right arm swelling, + occlusive thrombosis within the cephalic vein, no DVT on US Yeast in sputum from 07/03 likely represents colonization - was on antifungal when collected Anemia s/p PRBCs 07/05 Plan Plan of Care Continue cefepime/Flagyl (07/05) and Zyvox Cultures neg Maintain aspiration precaution. Gen surgery following D/w nursing repeat bc change cvline and maria add KRISTIAN Rice MD Jul 17, 2019 07:49
--- NOTE | 2019-07-17 08:00 | NUR ---
Dr Salinas called, updated on patient's condition, lung sounds, and fever; also discussed changing/adding Propofol for better sedation as patient continues to have episodes with increasing HR to 150's and RR rate 40-50's. Dr Salinas ordered to ask Dr Smyth if patient can use Propofol for sedation with pancreatitis, check CBC and ABG today. Dr Salinas also stated not to trial patient today since patient was febrile. See orders.
[2019-07-17] MEDS: ALBUTEROL SULFATE 2.5 MG/3 ML NEBU. NEB SCH ×4 (08:02→20:16)
[2019-07-17 08:10] LABS: HEMATOCRIT 23.8 % (39.0-53.0); HEMOGLOBIN 7.6 g/dL (13.0-17.5); RED BLOOD COUNT 2.64 x10^6/uL (4.30-5.70); RED CELL DISTRIBUTION WIDTH 15.7 % (11.5-14.5); WHITE BLOOD COUNT 10.2 x10^3/uL (4.0-11.0)
--- NOTE | 2019-07-17 08:18 | PDOC ---
PULMONARY PROGRESS NOTES Subjective Hemodynamically stable, currently on AVAPS respirator had increase R/R when sedation weaned fevers low grade Vitals Vital Signs Date Time Temp Pulse Resp B/P (MAP) Pulse Ox O2 Delivery O2 Flow Rate FiO2 07/17/19 07:56 100 V60 AVAPS 07/17/19 07:00 116 28 158/87 (110) 07/17/19 04:00 99.4 99.4 Lungs: Other (decreased) Cardiovascular: S1 Abdomen: Other (distended) Extremities: No Edema Skin: Warm Labs Laboratory Tests Test 07/15/19 17:00 07/16/19 00:07 07/16/19 06:00 07/16/19 06:18 Glucose (Fingerstick) 202 mg/dL (70-99) 213 mg/dL (70-99) 232 mg/dL (70-99) Sodium Level 138 mmol/L (136-145) Potassium Level 4.3 mmol/L (3.5-5.1) Chloride Level 105 mmol/L (98-107) Carbon Dioxide Level 30 mmol/L (21-32) Anion Gap 3 (6-14) Blood Urea Nitrogen 26 mg/dL (8-26) Creatinine 0.9 mg/dL (0.7-1.3) Estimated GFR (Cockcroft-Gault) 108.5 Glucose Level 243 mg/dL (70-99) Calcium Level 7.9 mg/dL (8.5-10.1) Phosphorus Level 2.4 mg/dL (2.6-4.7) Magnesium Level 1.9 mg/dL (1.8-2.4) Test 07/16/19 07:35 07/16/19 12:02 07/16/19 17:28 07/17/19 00:06 O2 Saturation 98 % (92-99) Arterial Blood pH 7.37 (7.35-7.45) Arterial Blood pCO2 at Patient Temp 45 mmHg (35-46) Arterial Blood pO2 at Patient Temp 116 mmHg (75-108) Arterial Blood HCO3 26 mmol/L (21-28) Arterial Blood Base Excess 0 mmol/L (-3-3) FiO2 40% Glucose (Fingerstick) 204 mg/dL (70-99) 214 mg/dL (70-99) 208 mg/dL (70-99) Test 4/2/20 06:00 07/17/19 06:17 White Blood Count 10.2 x10^3/uL (4.0-11.0) Red Blood Count 2.64 x10^6/uL (4.30-5.70) Hemoglobin 7.6 g/dL (13.0-17.5) Hematocrit 23.8 % (39.0-53.0) Mean Corpuscular Volume 90 fL (79-100) Mean Corpuscular Hemoglobin 29 pg (25-35) Mean Corpuscular Hemoglobin Concent 32 g/dL (31-37) Red Cell Distribution Width 15.7 % (11.5-14.5) Platelet Count 309 x10^3/uL (140-400) Sodium Level 140 mmol/L (136-145) Potassium Level 4.3 mmol/L (3.5-5.1) Chloride Level 105 mmol/L (98-107) Carbon Dioxide Level 29 mmol/L (21-32) Anion Gap 6 (6-14) Blood Urea Nitrogen 23 mg/dL (8-26) Creatinine 0.9 mg/dL (0.7-1.3) Estimated GFR (Cockcroft-Gault) 108.5 Glucose Level 224 mg/dL (70-99) Calcium Level 7.9 mg/dL (8.5-10.1) Phosphorus Level 2.3 mg/dL (2.6-4.7) Glucose (Fingerstick) 229 mg/dL (70-99) Laboratory Tests Test 07/16/19 12:02 07/16/19 17:28 07/17/19 00:06 07/17/19 06:00 Glucose (Fingerstick) 204 mg/dL (70-99) 214 mg/dL (70-99) 208 mg/dL (70-99) White Blood Count 10.2 x10^3/uL (4.0-11.0) Red Blood Count 2.64 x10^6/uL (4.30-5.70) Hemoglobin 7.6 g/dL (13.0-17.5) Hematocrit 23.8 % (39.0-53.0) Mean Corpuscular Volume 90 fL (79-100) Mean Corpuscular Hemoglobin 29 pg (25-35) Mean Corpuscular Hemoglobin Concent 32 g/dL (31-37) Red Cell Distribution Width 15.7 % (11.5-14.5) Platelet Count 309 x10^3/uL (140-400) Sodium Level 140 mmol/L (136-145) Potassium Level 4.3 mmol/L (3.5-5.1) Chloride Level 105 mmol/L (98-107) Carbon Dioxide Level 29 mmol/L (21-32) Anion Gap 6 (6-14) Blood Urea Nitrogen 23 mg/dL (8-26) Creatinine 0.9 mg/dL (0.7-1.3) Estimated GFR (Cockcroft-Gault) 108.5 Glucose Level 224 mg/dL (70-99) Calcium Level 7.9 mg/dL (8.5-10.1) Phosphorus Level 2.3 mg/dL (2.6-4.7) Test 07/17/19 06:17 Glucose (Fingerstick) 229 mg/dL (70-99) Medications Active Scripts Medications Dose Route/Sig Max Daily Dose Days Date Category Comments cxr 07/14 reviewed poor insp effort Left basal effusion/ atelectasis CT chest IMPRESSION: Infiltrates with air bronchograms posterior medially at the right lung base without change. Moderate left pleural effusion with atelectasis or infiltrate at the left lung base without significant change. Continued presence of an enlarged edematous pancreas with inflammatory changes in the mesentery consistent with history of necrotic pancreatitis and showing some mild improvement. Continued presence of drainage tubes in the upper abdomen with no significant fluid collections surrounding the tips of these tubes. There is however still some free fluid present in the abdomen abdomen. Soft tissue process anteriorly within the cardiac fat pad which appears slightly more prominent than on previous examination and may reflect an inflammatory process. Impression . IMPRESSION: 1. Acute hypoxemic respiratory failure, multifactorial, 2. Acute gallstone pancreatitis./ Necrosis. s/p Exploratory laparotomy, pancreatic necrosectomy, cholecystostomy tube placement, Gastrostomy placement with jejunal extension, tracheostomy placement (specifically 8 shiley cuffed) 06/21 3. Acute kidney failure. improving 4. Metabolic toxic encephalopathy. 5. Hyperkalemia.corrected 6. Metabolic / respiratory acidosis 7. Hypocalcemia. 8. POSSIBLE ABD COMPARTMENT SYNDROME , s/p Exp lap 9. HEP B S POSITIVE 10. Hypernatremia, resolved 11. LLL small effusion, monitor 12. FEVER PER ID, improvement afebrile the last 48 hours 13. Occlusive thrombus within the cephalic vein no DVT on ultrasound ri Repeat CT Infiltrates with air bronchograms posterior medially at the right lung base without change. Moderate left pleural effusion with atelectasis or infiltrate at the left lung base without significant change. Continued presence of an enlarged edematous pancreas with inflammatory changes in the mesentery consistent with history of necrotic pancreatitis and showing some mild improvement. Continued presence of drainage tubes in the upper abdomen with no significant fluid collections surrounding the tips of these tubes. There is however still some free fluid present in the abdomen abdomen. Soft tissue process anteriorly within the cardiac fat pad which appears slightly more prominent than on previous examination and may reflect an inflammatory process. Plan . Contine AVAPS at current settings needs PRN Paralytics continue current sedation/ narcotics, very difficult to wean sedation Antibiotics per ID Any further CT abdomen, will defer to ID and surgery Not ready for spontaneous trial Follow surgery input Nutrition per TPN Continue current antibiotics per ID Monitor Hb DVT GI prophylaxis Case discussed with RN Total cumulative critical care time of 30 minutes reviewing data, labs, x-ray, TAYA PEREIRA MD Jul 17, 2019 08:18
[2019-07-17] MEDS: FLUCONAZOLE 200MG/100ML PREMIX 100 ML IV SCH (08:23)
[2019-07-17] MEDS: FUROSEMIDE 40 MG/4 ML VIAL. IVP SCH (08:25)
[2019-07-17] MEDS: ACETAMINOPHEN 650 MG SUPP.RECT. PR PRN (08:26)
[2019-07-17] MEDS: INSULIN GLARGINE SYRINGE. SQ SCH ×2 (08:28→22:56)
--- NOTE | 2019-07-17 09:22 | PDOC ---
SURGICAL PROGRESS NOTE Subjective d/w nursing TF at 10cc/hr no acute changes currently Vital Signs Vital Signs Date Time Temp Pulse Resp B/P (MAP) Pulse Ox O2 Delivery O2 Flow Rate FiO2 07/17/19 07:56 100 V60 AVAPS 07/17/19 07:00 116 28 158/87 (110) 07/17/19 04:00 99.4 99.4 I&O Intake and Output 07/17/19 07:00 Intake Total 3237 ml Output Total 2924 ml Balance 313 ml IV Total 2847 ml Tube Feeding 240 ml Other 150 ml Output Urine Total 2515 ml Drainage Total 409 ml General: Other (sedated ) Abdomen: Other (drains in place, vac in place) Labs Laboratory Tests Test 07/15/19 17:00 07/16/19 00:07 07/16/19 06:00 07/16/19 06:18 Glucose (Fingerstick) 202 mg/dL (70-99) 213 mg/dL (70-99) 232 mg/dL (70-99) Sodium Level 138 mmol/L (136-145) Potassium Level 4.3 mmol/L (3.5-5.1) Chloride Level 105 mmol/L (98-107) Carbon Dioxide Level 30 mmol/L (21-32) Anion Gap 3 (6-14) Blood Urea Nitrogen 26 mg/dL (8-26) Creatinine 0.9 mg/dL (0.7-1.3) Estimated GFR (Cockcroft-Gault) 108.5 Glucose Level 243 mg/dL (70-99) Calcium Level 7.9 mg/dL (8.5-10.1) Phosphorus Level 2.4 mg/dL (2.6-4.7) Magnesium Level 1.9 mg/dL (1.8-2.4) Test 07/16/19 07:35 07/16/19 12:02 07/16/19 17:28 07/17/19 00:06 O2 Saturation 98 % (92-99) Arterial Blood pH 7.37 (7.35-7.45) Arterial Blood pCO2 at Patient Temp 45 mmHg (35-46) Arterial Blood pO2 at Patient Temp 116 mmHg (75-108) Arterial Blood HCO3 26 mmol/L (21-28) Arterial Blood Base Excess 0 mmol/L (-3-3) FiO2 40% Glucose (Fingerstick) 204 mg/dL (70-99) 214 mg/dL (70-99) 208 mg/dL (70-99) Test 07/17/19 06:00 07/17/19 06:17 White Blood Count 10.2 x10^3/uL (4.0-11.0) Red Blood Count 2.64 x10^6/uL (4.30-5.70) Hemoglobin 7.6 g/dL (13.0-17.5) Hematocrit 23.8 % (39.0-53.0) Mean Corpuscular Volume 90 fL (79-100) Mean Corpuscular Hemoglobin 29 pg (25-35) Mean Corpuscular Hemoglobin Concent 32 g/dL (31-37) Red Cell Distribution Width 15.7 % (11.5-14.5) Platelet Count 309 x10^3/uL (140-400) Sodium Level 140 mmol/L (136-145) Potassium Level 4.3 mmol/L (3.5-5.1) Chloride Level 105 mmol/L (98-107) Carbon Dioxide Level 29 mmol/L (21-32) Anion Gap 6 (6-14) Blood Urea Nitrogen 23 mg/dL (8-26) Creatinine 0.9 mg/dL (0.7-1.3) Estimated GFR (Cockcroft-Gault) 108.5 Glucose Level 224 mg/dL (70-99) Calcium Level 7.9 mg/dL (8.5-10.1) Phosphorus Level 2.3 mg/dL (2.6-4.7) Magnesium Level 1.9 mg/dL (1.8-2.4) Glucose (Fingerstick) 229 mg/dL (70-99) Laboratory Tests Test 07/16/19 12:02 07/16/19 17:28 07/17/19 00:06 07/17/19 06:00 Glucose (Fingerstick) 204 mg/dL (70-99) 214 mg/dL (70-99) 208 mg/dL (70-99) White Blood Count 10.2 x10^3/uL (4.0-11.0) Red Blood Count 2.64 x10^6/uL (4.30-5.70) Hemoglobin 7.6 g/dL (13.0-17.5) Hematocrit 23.8 % (39.0-53.0) Mean Corpuscular Volume 90 fL (79-100) Mean Corpuscular Hemoglobin 29 pg (25-35) Mean Corpuscular Hemoglobin Concent 32 g/dL (31-37) Red Cell Distribution Width 15.7 % (11.5-14.5) Platelet Count 309 x10^3/uL (140-400) Sodium Level 140 mmol/L (136-145) Potassium Level 4.3 mmol/L (3.5-5.1) Chloride Level 105 mmol/L (98-107) Carbon Dioxide Level 29 mmol/L (21-32) Anion Gap 6 (6-14) Blood Urea Nitrogen 23 mg/dL (8-26) Creatinine 0.9 mg/dL (0.7-1.3) Estimated GFR (Cockcroft-Gault) 108.5 Glucose Level 224 mg/dL (70-99) Calcium Level 7.9 mg/dL (8.5-10.1) Phosphorus Level 2.3 mg/dL (2.6-4.7) Magnesium Level 1.9 mg/dL (1.8-2.4) Test 07/17/19 06:17 Glucose (Fingerstick) 229 mg/dL (70-99) Problem List Problems Medical Problems: (1) Acute pancreatitis Status: Acute (2) Nausea & vomiting Status: Acute Assessment/Plan supportive care MAXIMILIANO GREENBERG APRN Jul 17, 2019 09:22
--- NOTE | 2019-07-17 10:13 | PDOC ---
Objective: Objective: Tube feeds started, had a mucoid stool yesterday, fevers. Vital Signs: Vital Signs Date Time Temp Pulse Resp B/P (MAP) Pulse Ox O2 Delivery O2 Flow Rate FiO2 07/17/19 07:56 100 V60 AVAPS 07/17/19 07:00 116 28 158/87 (110) 07/17/19 04:00 99.4 99.4 Labs: Laboratory Tests Test 07/16/19 12:02 07/16/19 17:28 07/17/19 00:06 07/17/19 06:00 Glucose (Fingerstick) 204 mg/dL 214 mg/dL 208 mg/dL White Blood Count 10.2 x10^3/uL Red Blood Count 2.64 x10^6/uL Hemoglobin 7.6 g/dL Hematocrit 23.8 % Mean Corpuscular Volume 90 fL Mean Corpuscular Hemoglobin 29 pg Mean Corpuscular Hemoglobin Concent 32 g/dL Red Cell Distribution Width 15.7 % Platelet Count 309 x10^3/uL Sodium Level 140 mmol/L Potassium Level 4.3 mmol/L Chloride Level 105 mmol/L Carbon Dioxide Level 29 mmol/L Anion Gap 6 Blood Urea Nitrogen 23 mg/dL Creatinine 0.9 mg/dL Estimated GFR (Cockcroft-Gault) 108.5 Glucose Level 224 mg/dL Calcium Level 7.9 mg/dL Phosphorus Level 2.3 mg/dL Magnesium Level 1.9 mg/dL Test 07/17/19 06:17 Glucose (Fingerstick) 229 mg/dL ORDERED: ANAER/LEONOR/BREANNE COMMENTS: Has specimen been collected/obtained? Y Procedure Result ANAEROBIC-AEROBIC CULTURE PENDING ANAEROBIC RES 1 PENDING AEROBIC CULT Preliminary Preliminary report AEROBIC RES 1 Preliminary Comment No growth in 36 - 48 hours. GRAM STAIN Final Final report GRAM STAIN RES 1 Final Comment No white blood cells seen. GRAM STAIN RES 2 Final No organisms seen Performed at: - [facility] [address], [place], [place] [id number] [employer] Associate: WOODY Roberson MD, Phone: [phone] PE: GEN: ill LUNGS: trach HEART: tachycardic ABD: distended NEURO/PSYCH: sedated A/P: S/p pancreatic necrosectomy, MOSF -- Continue same per GI, suppository PRN. Hemodynamically unstable?: No Is patient in severe pain?: No Is NPO status required?: Yes PAXTON ALEXANDER Jul 17, 2019 10:13
[2019-07-17] MEDS ORDERED: BISACODYL 10 MG SUPP.RECT. PR PRN (10:15)
--- NOTE | 2019-07-17 11:32 | NUR ---
Replaced Lobato catheter per Dr Martine Garcia. Order for Anesthesia to replace central line placed. Dr Ochoa returned my page. Requested that Dr Garcia call him regarding central line placement before he would come place. This message was relayed to Dr Garcia, via mobile phone text page.
[2019-07-17 12:59] LABS: BASE EXCESS ABG 5 mmol/L (-3-3); HCO3 ABG 30 mmol/L (21-28); PCO2 ABG 48 mmHg (35-46); PO2 ABG 149 mmHg (75-108); SAT O2 ABG 98 % (92-99)
[2019-07-17] MEDS: TPN PER PHARMACY MC PRN (13:31)
--- NOTE | 2019-07-17 13:33 | NUR ---
Pharmacy TPN Dosing Note S: CHRISTOPHER NEWSOME is a 49 year old M Currently receiving Central Continuous TPN started 06/19/19 B:Pertinent PMH: PANCREATITIS Height: 5 feet, 9 inches Weight: 105.3 kg Current diet: NPO LABS: Sodium: 138 Potassium: 4.3 Chloride: 105 Calcium: 7.9 Corrected Calcium: 10.22 Magnesium: 1.9 CO2: 30 SCr: 0.9 Glucose: 243 Albumin: 1.1 AST: 58 ALT: 45 TPN FORMULA: TPN TYPE: Central Continuous AMINO ACIDS: 145 gm DEXTROSE: 285 gm LIPIDS: 20 gm POTASSIUM PHOSPHATE: 23 mmol MAGNESIUM: 15 mEq CALCIUM: 10 mEq MULTIPLE VITAMIN: 10 ml TRACE ELEMENTS: 0.5 ml TPN PLAN: -Tube feeds running @ 10 ml/hr. -Serum phos still trending down, give NaPhos 20 mmol bolus. Change KPhos to 23 mmol/day. -Remove KAC due to increase in potassium load with added KPhos. -BMP, phos tomorrow. R: Continue TPN @ current rate and with above formula. Will monitor electrolytes, glucose, and tolerance to TPN. JESE HAGEN [facility], 07/17/19 [id number]
[2019-07-17 13:35] LABS: FIO2 ABG 40
[2019-07-17] MEDS ORDERED: NS IV ONE (14:00)
[2019-07-17] MEDS ORDERED: SODIUM PHOSPHATE IV ONE (14:00)
--- NOTE | 2019-07-17 15:00 | NUR ---
Talked with Dr Mcpherson about placing a tunneled PICC per Dr Martine Garcia. Dr Mcpherson said he will place tomorrow 07/17. Consents are signed and in the patients chart.
--- NOTE | 2019-07-17 15:11 | PDOC ---
PROGRESS NOTES Chief Complaint Chief Complaint Severe pancreatitis with the following surgery: Exploratory laparotomy, pancreatic necrosectomy, cholecystostomy tube placement, Gastrostomy placement with jejunal extension, tracheostomy placement (specifically 8 shiley cuffed) Acute hypoxemic respiratory failure, multifactorial. Status post tracheostomy 5 drains Acute gallstone pancreatitis./ Necrosis Acute kidney failure. improving Metabolic toxic encephalopathy. Hyperkalemia.corrected Metabolic / respiratory acidosis Hypocalcemia. Hepatitis B Hypernatremia LLL small effusion, monitor Plan: continue vent support unable to do trials due to agitation discussed with pulmonary clinical consultant at bedside quite poor prognosis. reassess in the am History of Present Illness History of Present Illness 07/17/2019 no changes compared to yesterday unable to wean off sedation due to agitation according to nursing staff quite the conundrum, may have to address end of life with 07/16/2019 critically stable still getting very agitated if sedation wears off no other acute events reported overnight. [id number] Patient seen and examined in the ICU He remains critically ill on the vent He is on pressure control 32/5 with 40% FiO2 His Deacon is present Chart reviewed Discussed with RN He is extremely critically ill and I'm concerned about his long-term prognosis [id number] Patient seen and examined in the ICU He remains extremely critically ill Intubated On pressure control 32 with 5 of PEEP 500 tidal volume rate of 20 and 40% FiO2 Sedated On TPN Discussed with RN Chart reviewed [id number] Patient seen and examined in the ICU his is present Discussed with RN Chart reviewed The patient actually open his eyes and tried to look at me? [id number] Patient seen and examined in the ICU He remains intubated and mechanically ventilated Extremely critically ill On TPN Versed Precedex and fentanyl Vent settings before meals/20/500/40% Discussed with laboratory analyst and RN Chart reviewed [id number] Patient seen and examined in the ICU Currently getting a sponge bath Got a great view of his abdomen He has a total of 7 different drains and/or catheters Still mechanically ventilated Off of pressors Sedated Periodically can open his eyes Still very critically ill Chart reviewed Discussed with RNs [id number] Patient seen and examined in the intensive care unit He remains mechanically ventilated Before meals/20/500/40% Extremely critically ill He has 4 or 5 drains in including GJ tube Discussed with RN Chart reviewed [id number] Patient seen and examined in the ICU He is still mechanically ventilated assist-control/20/500 with 40% Chart reviewed Discussed with RN He remains very critically ill [id number] Patient seen and examined in the ICU Discussed with general surgeon and he examined the patient with me Patient's is present in his good support for him Currently still intubated and on the vent He is on assist control with 40% oxygen Remains very critically ill Mr Mata is a 49 yo M admitted with severe epigastric pain beginning in the morning of admission. Ultimately diagnosed with gallstone pancreatitis. Hemodialysis catheter placed for renal failure. Arterial blood gas revealed a pH of 7.30, PaCO2 of 31, PaO2 of 75, bicarb was 15. Consulted ID, GI, General surgery, nephrology, pulmonology 06/21: Ex-lap with pancreatic necrosectomy, cholecystectomy, gastrostomy tube lpacement, tracheostomy placement. 06/22 - 06/26: Has 5 abdominal drains plus a Lobato and an NG to suction, intubated, sedated, paralyzed 06/28- 07/02: remain on micafungin, TPN. Trached on vent, sedated, 40% FiO2 07/03: His dialysis catheter and central line were removed. Ventilated via trach and sedated 07/04: Sedated on precedex. ABG reviewed, stable. Vitals stable, drains stable, still requiring ventilation on trach. Hb 7.6. TAG 1170 changed from propofol to versed for sedation 07/06 reposition G-tube. Overnight sedated. Still febrile. More comfortable on versed for sedation. Hb 7, 1u PRBC ordered. plan: Trend CBC Vitals Vitals Vital Signs Date Time Temp Pulse Resp B/P (MAP) Pulse Ox O2 Delivery O2 Flow Rate FiO2 07/17/19 14:00 102 20 115/75 (88) 100 Ventilator 07/17/19 12:00 98.8 98.8 Physical Exam Physical Exam GENERAL: Sedated, trached/vent, HEENT: Pupils equal reactive - mild icteric NECK: Trach LUNGS: Diminished aeration bases HEART: S1, S2, regular ABDOMEN: Distended, bowel sounds quiet, drains x5, wound vac in place : Lobato in place EXTREMITIES: 1+ edema, no cyanosis. SCDs bilaterally SKIN: Warm, moist. 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 INVESTIGATION LIEUTENANT: Sedated Left IJ 07/06- clean. General: Other (sedated ) Heart: Regular rate, Normal S1, Normal S2, No murmurs, Gallops Lungs: Other (decreased) Abdomen: Other (drains in place, vac in place) Extremities: No clubbing, No cyanosis, No edema, Normal pulses, No tenderness/swelling Skin: No significant lesion Labs LABS Laboratory Tests Test 07/16/19 17:28 07/17/19 00:06 07/17/19 06:00 07/17/19 06:17 Glucose (Fingerstick) 214 mg/dL (70-99) 208 mg/dL (70-99) 229 mg/dL (70-99) White Blood Count 10.2 x10^3/uL (4.0-11.0) Red Blood Count 2.64 x10^6/uL (4.30-5.70) Hemoglobin 7.6 g/dL (13.0-17.5) Hematocrit 23.8 % (39.0-53.0) Mean Corpuscular Volume 90 fL (79-100) Mean Corpuscular Hemoglobin 29 pg (25-35) Mean Corpuscular Hemoglobin Concent 32 g/dL (31-37) Red Cell Distribution Width 15.7 % (11.5-14.5) Platelet Count 309 x10^3/uL (140-400) Sodium Level 140 mmol/L (136-145) Potassium Level 4.3 mmol/L (3.5-5.1) Chloride Level 105 mmol/L (98-107) Carbon Dioxide Level 29 mmol/L (21-32) Anion Gap 6 (6-14) Blood Urea Nitrogen 23 mg/dL (8-26) Creatinine 0.9 mg/dL (0.7-1.3) Estimated GFR (Cockcroft-Gault) 108.5 Glucose Level 224 mg/dL (70-99) Calcium Level 7.9 mg/dL (8.5-10.1) Phosphorus Level 2.3 mg/dL (2.6-4.7) Magnesium Level 1.9 mg/dL (1.8-2.4) Test 07/17/19 08:00 07/17/19 12:27 O2 Saturation 98 % (92-99) Arterial Blood pH 7.42 (7.35-7.45) Arterial Blood pCO2 at Patient Temp 48 mmHg (35-46) Arterial Blood pO2 at Patient Temp 149 mmHg (75-108) Arterial Blood HCO3 30 mmol/L (21-28) Arterial Blood Base Excess 5 mmol/L (-3-3) FiO2 40 Glucose (Fingerstick) 210 mg/dL (70-99) Assessment and Plan Assessmemt and Plan Problems Medical Problems: (1) Acute pancreatitis Status: Acute (2) Nausea & vomiting Status: Acute Comment Review of Relevant I have reviewed the following items alexandra (where applicable) has been applied. Labs Laboratory Tests Test 07/15/19 17:00 07/16/19 00:07 07/16/19 06:00 07/16/19 06:18 Glucose (Fingerstick) 202 mg/dL (70-99) 213 mg/dL (70-99) 232 mg/dL (70-99) Sodium Level 138 mmol/L (136-145) Potassium Level 4.3 mmol/L (3.5-5.1) Chloride Level 105 mmol/L (98-107) Carbon Dioxide Level 30 mmol/L (21-32) Anion Gap 3 (6-14) Blood Urea Nitrogen 26 mg/dL (8-26) Creatinine 0.9 mg/dL (0.7-1.3) Estimated GFR (Cockcroft-Gault) 108.5 Glucose Level 243 mg/dL (70-99) Calcium Level 7.9 mg/dL (8.5-10.1) Phosphorus Level 2.4 mg/dL (2.6-4.7) Magnesium Level 1.9 mg/dL (1.8-2.4) Test 07/16/19 07:35 07/16/19 12:02 07/16/19 17:28 07/17/19 00:06 O2 Saturation 98 % (92-99) Arterial Blood pH 7.37 (7.35-7.45) Arterial Blood pCO2 at Patient Temp 45 mmHg (35-46) Arterial Blood pO2 at Patient Temp 116 mmHg (75-108) Arterial Blood HCO3 26 mmol/L (21-28) Arterial Blood Base Excess 0 mmol/L (-3-3) FiO2 40% Glucose (Fingerstick) 204 mg/dL (70-99) 214 mg/dL (70-99) 208 mg/dL (70-99) Test 07/17/19 06:00 07/17/19 06:17 07/17/19 08:00 07/17/19 12:27 White Blood Count 10.2 x10^3/uL (4.0-11.0) Red Blood Count 2.64 x10^6/uL (4.30-5.70) Hemoglobin 7.6 g/dL (13.0-17.5) Hematocrit 23.8 % (39.0-53.0) Mean Corpuscular Volume 90 fL (79-100) Mean Corpuscular Hemoglobin 29 pg (25-35) Mean Corpuscular Hemoglobin Concent 32 g/dL (31-37) Red Cell Distribution Width 15.7 % (11.5-14.5) Platelet Count 309 x10^3/uL (140-400) Sodium Level 140 mmol/L (136-145) Potassium Level 4.3 mmol/L (3.5-5.1) Chloride Level 105 mmol/L (98-107) Carbon Dioxide Level 29 mmol/L (21-32) Anion Gap 6 (6-14) Blood Urea Nitrogen 23 mg/dL (8-26) Creatinine 0.9 mg/dL (0.7-1.3) Estimated GFR (Cockcroft-Gault) 108.5 Glucose Level 224 mg/dL (70-99) Calcium Level 7.9 mg/dL (8.5-10.1) Phosphorus Level 2.3 mg/dL (2.6-4.7) Magnesium Level 1.9 mg/dL (1.8-2.4) Glucose (Fingerstick) 229 mg/dL (70-99) 210 mg/dL (70-99) O2 Saturation 98 % (92-99) Arterial Blood pH 7.42 (7.35-7.45) Arterial Blood pCO2 at Patient Temp 48 mmHg (35-46) Arterial Blood pO2 at Patient Temp 149 mmHg (75-108) Arterial Blood HCO3 30 mmol/L (21-28) Arterial Blood Base Excess 5 mmol/L (-3-3) FiO2 40 Laboratory Tests Test 07/16/19 17:28 07/17/19 00:06 07/17/19 06:00 07/17/19 06:17 Glucose (Fingerstick) 214 mg/dL (70-99) 208 mg/dL (70-99) 229 mg/dL (70-99) White Blood Count 10.2 x10^3/uL (4.0-11.0) Red Blood Count 2.64 x10^6/uL (4.30-5.70) Hemoglobin 7.6 g/dL (13.0-17.5) Hematocrit 23.8 % (39.0-53.0) Mean Corpuscular Volume 90 fL (79-100) Mean Corpuscular Hemoglobin 29 pg (25-35) Mean Corpuscular Hemoglobin Concent 32 g/dL (31-37) Red Cell Distribution Width 15.7 % (11.5-14.5) Platelet Count 309 x10^3/uL (140-400) Sodium Level 140 mmol/L (136-145) Potassium Level 4.3 mmol/L (3.5-5.1) Chloride Level 105 mmol/L (98-107) Carbon Dioxide Level 29 mmol/L (21-32) Anion Gap 6 (6-14) Blood Urea Nitrogen 23 mg/dL (8-26) Creatinine 0.9 mg/dL (0.7-1.3) Estimated GFR (Cockcroft-Gault) 108.5 Glucose Level 224 mg/dL (70-99) Calcium Level 7.9 mg/dL (8.5-10.1) Phosphorus Level 2.3 mg/dL (2.6-4.7) Magnesium Level 1.9 mg/dL (1.8-2.4) Test 07/17/19 08:00 07/17/19 12:27 O2 Saturation 98 % (92-99) Arterial Blood pH 7.42 (7.35-7.45) Arterial Blood pCO2 at Patient Temp 48 mmHg (35-46) Arterial Blood pO2 at Patient Temp 149 mmHg (75-108) Arterial Blood HCO3 30 mmol/L (21-28) Arterial Blood Base Excess 5 mmol/L (-3-3) FiO2 40 Glucose (Fingerstick) 210 mg/dL (70-99) Microbiology 07/11/19 Aerobic and Anaerobic Culture - Preliminary, Resulted 07/11/19 Anaerobic Culture Result 1 (CARINE) - Preliminary, Resulted 07/11/19 Aerobic Culture - Final, Resulted 07/11/19 Aerobic Culture Result 1 (CARINE) - Final, Resulted 07/11/19 Gram Stain - Final, Resulted 07/11/19 Gram Stain Result 1 (CARINE) - Final, Resulted 07/11/19 Gram Stain Result 2 (CARINE) - Final, Resulted 07/06/19 Blood Culture - Final, Complete NO GROWTH AFTER 5 DAYS 07/04/19 - Final, Complete 07/04/19 - Final, Complete 07/04/19 - Final, Complete 07/04/19 Gram Stain Evaluation - Final, Complete 07/04/19 Sputum Culture - Final, Complete 07/04/19 Sputum Result 1 - Final, Complete 07/03/19 Aerobic Culture - Final, Complete 07/03/19 Aerobic Culture Result 1 (CARINE) - Final, Complete 07/03/19 Gram Stain - Final, Complete 07/03/19 Gram Stain Result 1 (CARINE) - Final, Complete 07/03/19 Gram Stain Result 2 (CARINE) - Final, Complete Medications Current Medications Morphine Sulfate (Morphine Sulfate) 4 mg PRN Q15MIN PRN IV/SQ PAIN GREATER THAN 3/10 Last administered on 06/11/19at 04:58; Start 06/11/19 at 04:30; Stop 06/11/19 at 16:47; Status DC Sodium Chloride 1,000 ml @ 1,000 mls/hr Q1H IV Last administered on 06/11/19at 04:34; Start 06/11/19 at 04:30; Stop 06/11/19 at 05:29; Status DC Ondansetron HCl (Zofran) 4 mg 1X ONCE IV Last administered on 06/11/19at 04:33; Start 06/11/19 at 04:30; Stop 06/11/19 at 04:33; Status DC Iohexol (Omnipaque 350 Mg/ml) 100 ml 1X ONCE IV Last administered on 06/11/19at 05:01; Start 06/11/19 at 04:45; Stop 06/11/19 at 04:46; Status DC Info (CONTRAST GIVEN -- Rx MONITORING) 1 each PRN DAILY PRN MC SEE COMMENTS; Start 06/11/19 at 04:45; Stop 06/13/19 at 04:44; Status DC Fentanyl Citrate (Fentanyl 2ml Vial) 100 mcg STK-MED ONCE .ROUTE ; Start 06/11/19 at 04:42; Stop 06/11/19 at 04:42; Status DC Fentanyl Citrate (Fentanyl 2ml Vial) 50 mcg 1X ONCE IVP Last administered on 06/11/19at 04:45; Start 06/11/19 at 05:00; Stop 06/11/19 at 05:01; Status DC Ondansetron HCl (Zofran) 4 mg PRN Q8HRS PRN IV NAUSEA/VOMITING Last administered on 06/12/19at 03:29; Start 06/11/19 at 05:45; Stop 06/12/19 at 05:44; Status DC Morphine Sulfate (Morphine Sulfate) 4 mg PRN Q2HR PRN IV PAIN Last administered on 06/11/19at 07:37; Start 06/11/19 at 05:45; Stop 06/11/19 at 11:54; Status DC Sodium Chloride 1,000 ml @ 150 mls/hr Q6H40M IV Last administered on 06/12/19at 03:28; Start 06/11/19 at 05:45; Stop 06/12/19 at 11:01; Status DC Hydromorphone HCl (Dilaudid) 0.5 mg PRN Q3HRS PRN IV PAIN Last administered on 06/11/19at 08:38; Start 06/11/19 at 05:45; Stop 06/11/19 at 09:12; Status DC Potassium Chloride/Water 100 ml @ 100 mls/hr Q1H IV Last administered on 06/11at 08:41; Start 06/11/19 at 06:00; Stop 06/11/19 at 07:59; Status DC Hydromorphone HCl (Dilaudid) 1 mg PRN Q3HRS PRN IV PAIN Last administered on 06/11/19at 09:29; Start 06/11/19 at 09:15; Stop 06/11/19 at 11:54; Status DC Prochlorperazine Edisylate (Compazine) 10 mg PRN Q8HRS PRN IV NAUSEA/VOMITING, 2ND CHOICE Last administered on 06/12/19at 14:59; Start 06/11/19 at 12:00 Hydromorphone HCl (Dilaudid) 1 mg PRN Q2HRS PRN IV SEVERE PAIN Last administered on 07/15/19at 07:36; Start 06/11/19 at 12:00 Pantoprazole Sodium (PROTONIX VIAL for IV PUSH) 40 mg DAILYAC IVP Last administered on 06/12/19at 08:29; Start 06/11/19 at 15:00; Stop 06/12/19 at 16:23; Status DC Lorazepam (Ativan Inj) 1 mg PRN Q6HRS PRN IVP ANXIETY / AGITATION Last administered on 07/16/19at 17:46; Start 06/11/19 at 18:15 Hydralazine HCl (Apresoline Inj) 10 mg PRN Q6HRS PRN IVP ELEVATED BP, SEE COMMENTS Last administered on 06/18/19at 09:32; Start 06/11/19 at 18:15; Stop 06/21/19 at 09:12; Status DC Nystatin (Nystop) 1 devorah PRN QID PRN TP FUNGAL RASH Last administered on 06/11/19at 23:19; Start 06/11/19 at 23:15 Sodium Chloride 1,000 ml @ 1,000 mls/hr 1X ONCE IV Last administered on 06/12/19at 05:27; Start 06/12/19 at 06:00; Stop 06/12/19 at 06:59; Status DC Sodium Chloride 1,000 ml @ 1,000 mls/hr 1X ONCE IV Last administered on 06/12/19at 05:25; Start 06/12/19 at 05:00; Stop 06/12/19 at 05:59; Status DC Sodium Chloride 1,000 ml @ 200 mls/hr Q5H IV Last administered on 06/12/19at 06:36; Start 06/12/19 at 07:00; Stop 06/12/19 at 11:01; Status DC Sodium Bicarbonate 50 meq/Sodium Chloride 1,050 ml @ 150 mls/hr Q7H IV Last administered on 06/13/19at 04:16; Start 06/12/19 at 11:00; Stop 06/13/19 at 14:48; Status DC Amino Acids/ Glycerin/ Electrolytes 1,000 ml @ 80 mls/hr [id number] IV ; Start 06/12/19 at 10:00; Status UNV Amino Acids/ Electrolytes/ Dextrose 1,000 ml @ 80 mls/hr [id number] IV ; Start 06/12/19 at 10:15; Stop 06/18/19 at 13:50; Status DC Piperacillin Sod/ Tazobactam Sod (Zosyn Per Pharmacy) 1 each PRN DAILY PRN MC SEE COMMENTS; Start 06/12/19 at 13:15; Stop 06/12/19 at 19:16; Status DC Piperacillin Sod/ Tazobactam Sod 2.25 gm/Sodium Chloride 50 ml @ 100 mls/hr Q6HRS IV Last administered on 06/12/19at 13:48; Start 06/12/19 at 13:30; Stop 06/12/19 at 19:15; Status DC Sodium Bicarbonate (Sodium Bicarb Adult 8.4% Syr) 50 meq 1X ONCE IV Last administered on 06/12/19at 16:12; Start 06/12/19 at 16:00; Stop 06/12/19 at 16:01; Status DC Calcium Gluconate 1000 mg/Sodium Chloride 110 ml @ 220 mls/hr 1X ONCE IV Last administered on 06/12/19at 16:13; Start 06/12/19 at 16:00; Stop 06/12/19 at 16:29; Status DC Dextrose (Dextrose 50%-Water Syringe) 25 gm 1X ONCE IV Last administered on 06/12/19at 16:13; Start 06/12/19 at 16:00; Stop 06/12/19 at 16:01; Status DC Insulin Human Regular (HumuLIN R VIAL) 10 unit 1X ONCE IV Last administered on 06/12/19at 16:14; Start 06/12/19 at 16:00; Stop 06/12/19 at 16:01; Status DC Furosemide (Lasix) 40 mg 1X ONCE IVP Last administered on 06/12/19at 16:13; Start 06/12/19 at 16:00; Stop 06/12/19 at 16:01; Status DC Pantoprazole Sodium (PROTONIX VIAL for IV PUSH) 40 mg [id number] IVP Last administered on 06/13/19at 06:21; Start 06/12/19 at 18:00; Stop 06/13/19 at 18:49; Status DC Meropenem 500 mg/ Sodium Chloride 50 ml @ 100 mls/hr Q12HR IV Last administered on 06/17/19at 20:59; Start 06/12/19 at 21:00; Stop 06/18/19 at 07:26; Status DC Calcium Gluconate 1000 mg/Sodium Chloride 110 ml @ 220 mls/hr 1X ONCE IV Last administered on 06/12/19at 20:35; Start 06/12/19 at 19:15; Stop 06/12/19 at 19:44; Status DC Lidocaine HCl (Buffered Lidocaine 1%) 3 ml STK-MED ONCE .ROUTE ; Start 06/13/19 at 08:47; Stop 06/13/19 at 08:47; Status DC Lidocaine HCl (Buffered Lidocaine 1%) 6 ml 1X ONCE INJ Last administered on 06/13/19at 09:23; Start 06/13/19 at 09:30; Stop 06/13/19 at 09:31; Status DC Insulin Human Lispro (HumaLOG) 0-7 UNITS TIDWMEALS SQ Last administered on 06/13/19at 12:14; Start 06/13/19 at 12:00; Stop 06/14/19 at 23:29; Status DC Dextrose (Dextrose 50%-Water Syringe) 12.5 gm PRN Q15MIN PRN IV SEE COMMENTS; Start 06/13/19 at 11:15; Stop 06/14/19 at 23:29; Status DC Insulin Human Regular 100 unit/ Sodium Chloride 101 ml @ 0 mls/hr CONT PRN IV SEE I/O RECORD Last administered on 06/13/19at 15:03; Start 06/13/19 at 14:15; Stop 06/21/19 at 12:37; Status DC Sodium Chloride 1,000 ml @ 1,000 mls/hr Q1H PRN IV hypotension; Start 06/13/19 at 14:00; Stop 06/13/19 at 19:59; Status DC Sodium Chloride 1,000 ml @ 400 mls/hr Q2H30M PRN IV PATENCY; Start 06/13/19 at 14:00; Stop 06/14/19 at 01:59; Status DC Info (PHARMACY MONITORING -- do not chart) 1 each PRN DAILY PRN MC SEE COMMENTS; Start 06/13/19 at 14:45; Stop 06/13/19 at 14:51; Status DC Info (PHARMACY MONITORING -- do not chart) 1 each PRN DAILY PRN MC SEE COMMENTS; Start 06/13/19 at 14:45; Stop 06/27/19 at 12:33; Status DC Pantoprazole Sodium (PROTONIX VIAL for IV PUSH) 40 mg [id number] IVP Last administered on 07/17/19at 06:11; Start 06/13/19 at 21:00 Dexmedetomidine HCl 400 mcg/ Sodium Chloride 100 ml @ 0 mls/hr CONT PRN IV PER PROTOCOL Last administered on 06/21/19at 05:52; Start 06/13/19 at 19:00; Stop 06/21/19 at 19:39; Status DC Sodium Chloride 500 ml @ 500 mls/hr 1X PRN PRN IV SEE COMMENTS; Start 06/13/19 at 19:00; Stop 07/05/19 at 08:01; Status DC Atropine Sulfate (ATROPINE 0.5mg SYRINGE) 0.5 mg PRN Q5MIN PRN IV SEE COMMENTS; Start 06/13/19 at 19:00; Stop 06/27/19 at 12:28; Status DC Sodium Chloride 1,000 ml @ 1,000 mls/hr Q1H PRN IV hypotension; Start 06/14/19 at 08:55; Stop 06/14/19 at 14:54; Status DC Albumin Human 200 ml @ 200 mls/hr 1X PRN PRN IV Hypotension Last administered on 06/14/19at 09:40; Start 06/14/19 at 09:00; Stop 06/14/19 at 14:59; Status DC Sodium Chloride 1,000 ml @ 400 mls/hr Q2H30M PRN IV PATENCY; Start 06/14/19 at 08:55; Stop 06/14/19 at 20:54; Status DC Info (PHARMACY MONITORING -- do not chart) 1 each PRN DAILY PRN MC SEE COMMENTS; Start 06/14/19 at 09:00; Stop 06/14/19 at 09:06; Status DC Info (PHARMACY MONITORING -- do not chart) 1 each PRN DAILY PRN MC SEE COMMENTS; Start 06/14/19 at 09:00; Stop 06/14/19 at 09:06; Status DC Calcium Chloride 2000 mg/Sodium Chloride 120 ml @ 240 mls/hr PRN QID PRN IV for CALCIUM < 5.8 Last administered on 06/15/19at 08:32; Start 06/14/19 at 10:15; Stop 06/15/19 at 09:58; Status DC Magnesium Sulfate 50 ml @ 25 mls/hr PRN DAILY PRN IV for Mag < 1.7 on am labs Last administered on 07/15/19at 08:52; Start 06/14/19 at 10:30 Norepinephrine Bitartrate 8 mg/ Dextrose 258 ml @ 20.027 mls/ hr CONT PRN IV PER PROTOCOL Last administered on 06/14/19at 10:31; Start 06/14/19 at 10:30 Succinylcholine Chloride (Anectine) 200 mg STK-MED ONCE .ROUTE ; Start 06/14/19 at 12:22; Stop 06/14/19 at 12:23; Status DC Etomidate (Amidate) 20 mg STK-MED ONCE IV ; Start 06/14/19 at 12:22; Stop 06/14/19 at 12:23; Status DC Fentanyl Citrate 30 ml @ 0 mls/hr CONT PRN IV SEE PROTOCOL Last administered on 06/19/19at 08:10; Start 06/14/19 at 12:45; Stop 06/19/19 at 11:00; Status DC Chlorhexidine Gluconate (Peridex) 15 ml BID MM Last administered on 06/30/19at 20:47; Start 06/14/19 at 21:00; Stop 07/01/19 at 16:34; Status DC Midazolam HCl 50 mg/Sodium Chloride 50 ml @ 0 mls/hr CONT PRN IV SEE PROTOCOL Last administered on 07/13/19at 10:19; Start 06/14/19 at 12:45; Stop 07/13/19 at 14:59; Status DC Midazolam HCl (Versed) 5 mg STK-MED ONCE .ROUTE ; Start 06/14/19 at 12:48; Stop 06/14/19 at 12:48; Status DC Fentanyl Citrate (Fentanyl 2ml Vial) 100 mcg STK-MED ONCE .ROUTE ; Start 06/14/19 at 12:48; Stop 06/14/19 at 12:48; Status DC Midazolam HCl (Versed) 5 mg 1X ONCE IV Last administered on 06/14/19at 12:59; Start 06/14/19 at 13:00; Stop 06/14/19 at 13:01; Status DC Fentanyl Citrate (Fentanyl 2ml Vial) 100 mcg 1X ONCE IM Last administered on 06/14/19at 12:58; Start 06/14/19 at 13:00; Stop 06/14/19 at 13:01; Status DC Succinylcholine Chloride (Anectine) 200 mg 1X ONCE IV Last administered on 06/14/19at 12:59; Start 06/14/19 at 13:00; Stop 06/14/19 at 13:01; Status DC Etomidate (Amidate) 14 mg 1X ONCE IV Last administered on 06/14/19at 12:59; Start 06/14/19 at 13:00; Stop 06/14/19 at 13:01; Status DC Acetaminophen (Tylenol Supp) 650 mg PRN Q6HRS PRN TN MILD PAIN / TEMP Last administered on 07/17/19at 08:26; Start 06/14/19 at 20:00 Linezolid/Dextrose 300 ml @ 300 mls/hr Q12HR IV Last administered on 07/03/19at 08:34; Start 06/14/19 at 21:00; Stop 07/03/19 at 09:09; Status DC Insulin Human Lispro (HumaLOG) 0-7 UNITS TIDWMEALS SQ ; Start 06/15/19 at 08:00; Stop 06/15/19 at 00:03; Status DC Dextrose (Dextrose 50%-Water Syringe) 12.5 gm PRN Q15MIN PRN IV SEE COMMENTS; Start 06/14/19 at 23:30; Stop 07/03/19 at 10:41; Status DC Insulin Human Lispro (HumaLOG) 0-7 UNITS Q4HRS SQ Last administered on 06/23/19at 08:05; Start 06/15/19 at 00:15; Stop 07/01/19 at 16:41; Status DC Calcium Gluconate 69385 mg/Sodium Chloride 494 ml @ 4.051 mls/ hr CONT PRN IV SYMPTOMATIC HYPOCALCEMIA; Start 06/15/19 at 09:30; Stop 06/15/19 at 09:23; Status DC Calcium Gluconate 5000 mg/Sodium Chloride 260 ml @ 5.543 mls/ hr CONT PRN IV SYMPTOMATIC HYPOCALCEMIA; Start 06/15/19 at 09:30; Stop 06/15/19 at 09:26; Status DC Calcium Gluconate 5000 mg/Sodium Chloride 260 ml @ 5.543 mls/ hr CONT PRN IV SYMPTOMATIC HYPOCALCEMIA; Start 06/15/19 at 09:30; Stop 06/15/19 at 09:29; Status DC Calcium Gluconate 5000 mg/Sodium Chloride 250 ml @ 28.782 mls/ hr CONT PRN IV SYMPTOMATIC HYPOCALCEMIA Last administered on 06/18/19at 06:12; Start 06/15/19 at 09:30; Stop 06/18/19 at 13:50; Status DC Lidocaine HCl (Lidocaine Pf 2% Vial) 5 ml STK-MED ONCE .ROUTE ; Start 06/14/19 at 12:00; Stop 06/17/19 at 10:37; Status DC Meropenem 500 mg/ Sodium Chloride 50 ml @ 100 mls/hr Q6HRS IV Last admini stered on 07/06/19at 12:12; Start 06/18/19 at 07:30; Stop 07/06/19 at 15:00; Status DC Nicardipine HCl 50 mg/Sodium Chloride 250 ml @ 25 mls/hr CONT PRN IV SEE I/O RECORD; Start 06/18/19 at 11:45; Stop 07/13/19 at 15:06; Status DC Metoprolol Tartrate (Lopressor Vial) 5 mg 1X ONCE IVP ; Start 06/18/19 at 12:15; Stop 06/18/19 at 12:16; Status DC Fentanyl Citrate (Fentanyl 600 Mcg/30 ml GARNETT FIXER) 600 mcg STK-MED ONCE IV ; Start 06/15/19 at 05:30; Stop 06/18/19 at 12:07; Status DC Enoxaparin Sodium (Lovenox 40mg Syringe) 40 mg Q24H SQ Last administered on 06/21/19at 23:02; Start 06/18/19 at 22:30; Stop 06/22/19 at 11:07; Status DC Fentanyl Citrate 55 ml @ 1.98 mls/hr CONT PRN IV SEE PROTOCOL; Start 06/19/19 at 08:15; Status Cancel Info (Tpn Per Pharmacy) 1 each PRN DAILY PRN MC SEE COMMENTS Last administered on 07/17/19at 13:31; Start 06/19/19 at 11:15 Hydralazine HCl (Apresoline Inj) 10 mg PRN Q4HRS PRN IVP ELEVATED BP, 1st choice Last administered on 07/15/19at 07:33; Start 06/19/19 at 11:45 Labetalol HCl (Normodyne Iv Push) 20 mg PRN Q2HR PRN IVP HYPERTENSION, 2nd choice Last administered on 06/26/19at 14:44; Start 06/19/19 at 11:45 Potassium Phosphate 13.6 mmol/Magnesium Sulfate 10 meq/ Calcium Gluconate 20 meq/ Multivitamins 10 ml/Chromium/ Copper/Manganese/ Seleni/Zn 0.5 ml/ Total Parenteral Nutrition/Amino Acids/Dextrose/ Fat Emulsion Intravenous 1,920 ml @ 80 mls/hr TPN CONT IV Last administered on 06/19/19at 21:31; Start 06/19/19 at 22:00; Stop 06/20/19 at 21:59; Status DC Fentanyl Citrate 30 ml @ 0 mls/hr CONT PRN IV SEE PROTOCOL Last administered on 06/24/19at 09:31; Start 06/19/19 at 18:00; Stop 06/24/19 at 11:38; Status DC Micafungin Sodium 100 mg/Dextrose 100 ml @ 100 mls/hr Q24H IV Last administered on 07/07/19at 08:19; Start 06/20/19 at 09:00; Stop 07/07/19 at 09:51; Status DC Potassium Phosphate 13.6 mmol/Calcium Gluconate 20 meq/ Multivitamins 10 ml/Chromium/ Copper/Manganese/ Seleni/Zn 0.5 ml/ Insulin Human Regular 10 unit/ Total Parenteral Nutrition/Amino Acids/Dextrose/ Fat Emulsion Intravenous 1,920 ml @ 80 mls/hr TPN CONT IV Last administered on 06/20/19at 21:57; Start 06/20/19 at 22:00; Stop 06/21/19 at 21:59; Status DC Insulin Glargine (Lantus Syringe) 15 unit QHS SQ Last administered on 06/20/19at 20:46; Start 06/20/19 at 21:00; Stop 06/21/19 at 12:32; Status DC Insulin Glargine (Lantus Syringe) 20 unit QHS SQ Last administered on 07/02/19at 20:46; Start 06/21/19 at 21:00; Stop 07/03/19 at 10:39; Status DC Potassium Phosphate 13.6 mmol/Calcium Gluconate 20 meq/ Multivitamins 10 ml/Chromium/ Copper/Manganese/ Seleni/Zn 0.5 ml/ Insulin Human Regular 10 unit/ Total Parenteral Nutrition/Amino Acids/Dextrose/ Fat Emulsion Intravenous 1,920 ml @ 80 mls/hr TPN CONT IV Last administered on 06/21/19at 21:31; Start 06/21/19 at 22:00; Stop 06/22/19 at 21:59; Status DC Dextrose 1,000 ml @ 75 mls/hr [id number] IV Last administered on 06/27/19at 01:32; Start 06/22/19 at 07:00; Stop 06/27/19 at 12:43; Status DC Albuterol Sulfate (Ventolin Neb Soln) 2.5 mg RTQID NEB Last administered on 07/17/19at 12:14; Start 06/22/19 at 08:00 Iohexol (Omnipaque 240 Mg/ml) 30 ml 1X ONCE PO ; Start 06/22/19 at 08:00; Stop 06/22/19 at 08:05; Status DC Iohexol (Omnipaque 300 Mg/ml) 75 ml 1X ONCE IV ; Start 06/22/19 at 08:00; Stop 06/22/19 at 08:01; Status Cancel Info (CONTRAST GIVEN -- Rx MONITORING) 1 each PRN DAILY PRN MC SEE COMMENTS; Start 06/22/19 at 08:15; Stop 06/24/19 at 08:14; Status DC Cefoxitin Sodium (Mefoxin) 2 gm 1X PREOP IVP ; Start 06/22/19 at 11:00; Stop 06/22/19 at 11:16; Status DC Cefoxitin Sodium (Mefoxin) 2 gm 1X PREOP ONCE IVP Last administered on 06/22/19at 11:37; Start 06/22/19 at 11:30; Stop 06/22/19 at 11:31; Status DC Rocuronium [place] (Zemuron) 50 mg STK-MED ONCE .ROUTE ; Start 06/22/19 at 11:42; Stop 06/22/19 at 11:42; Status DC Propofol 20 ml @ As Directed STK-MED ONCE IV ; Start 06/22/19 at 11:42; Stop 06/22/19 at 11:43; Status DC Dexamethasone Sodium Phosphate (Decadron) 4 mg STK-MED ONCE .ROUTE ; Start 06/22/19 at 11:45; Stop 06/22/19 at 11:45; Status DC Ondansetron HCl (Zofran) 4 mg STK-MED ONCE .ROUTE ; Start 06/22/19 at 11:45; Stop 06/22/19 at 11:45; Status DC Potassium Phosphate 13.6 mmol/Magnesium Sulfate 5 meq/ Calcium Gluconate 20 meq/ Multivitamins 10 ml/Chromium/ Copper/Manganese/ Seleni/Zn 0.5 ml/ Total Parenteral Nutrition/Amino Acids/Dextrose/ Fat Emulsion Intravenous 1,920 ml @ 80 mls/hr TPN CONT IV Last administered on 06/22/19at 22:14; Start 06/22/19 at 22:00; Stop 06/23/19 at 21:59; Status DC Rocuronium [place] (Zemuron) 100 mg STK-MED ONCE .ROUTE ; Start 06/22/19 at 13:05; Stop 06/22/19 at 13:06; Status DC Cellulose (Surgicel Hemostat 4x8) 1 each STK-MED ONCE .ROUTE Last administered on 06/22/19at 12:46; Start 06/22/19 at 13:14; Stop 06/22/19 at 13:14; Status DC Albumin Human 500 ml @ As Directed STK-MED ONCE IV ; Start 06/22/19 at 13:25; Stop 06/22/19 at 13:25; Status DC Sevoflurane (Ultane) 90 ml STK-MED ONCE IH ; Start 06/22/19 at 13:53; Stop 06/22/19 at 13:53; Status DC Cellulose (Surgicel Hemostat 4x8) 1 each STK-MED ONCE TP Last administered on 06/22/19at 12:46; Start 06/22/19 at 12:46; Stop 06/22/19 at 14:25; Status DC Cellulose (Surgicel Hemostat 4x8) 1 each STK-MED ONCE TP Last administered on 06/22/19at 12:46; Start 06/22/19 at 12:46; Stop 06/22/19 at 14:25; Status DC Rocuronium [place] (Zemuron) 50 mg STK-MED ONCE .ROUTE ; Start 06/22/19 at 14:52; Stop 06/22/19 at 14:52; Status DC Vecuronium [place] 50 mg/ Miscellaneous 50 ml @ 4.925 mls/ hr CONT PRN IV SEE PROTOCOL Last administered on 06/25/19at 05:19; Start 06/22/19 at 15:00 Enoxaparin Sodium (Lovenox 40mg Syringe) 40 mg Q24H SQ Last administered on at 06:21; Start 06/23/19 at 06:00 Sodium Chloride (Normal Saline Flush) 3 ml QSHIFT PRN IV AFTER MEDS AND BLOOD DRAWS; Start 06/22/19 at 15:45 Ringer's Solution 1,000 ml @ 100 mls/hr Q10H IV Last administered on 06/23/19at 22:06; Start 06/22/19 at 15:39; Stop 06/24/19 at 17:46; Status DC Naloxone HCl (Narcan) 0.4 mg PRN Q2MIN PRN IV SEE INSTRUCTIONS Last administered on 07/15/19at 07:58; Start 06/22/19 at 15:45 Sodium Chloride 1,000 ml @ 25 mls/hr Q24H IV Last administered on 07/16/19at 14:55; Start 06/22/19 at 15:39 Morphine Sulfate (Morphine Sulfate) 1 mg PRN Q1HR PRN IV MODERATE PAIN Last administered on 07/15/19at 08:48; Start 06/22/19 at 15:45 Ondansetron HCl (Zofran) 4 mg PRN Q6HRS PRN IVP NAUESA, 1ST CHOICE; Start 06/22/19 at 15:45 Calcium Gluconate (Calcium Gluconate) 1,000 mg 1X ONCE IVP ; Start 06/22/19 at 19:45; Stop 06/22/19 at 20:15; Status DC Sodium Bicarbonate (Sodium Bicarb Adult 8.4% Syr) 50 meq 1X ONCE IV Last administered on 06/22/19at 20:37; Start 06/22/19 at 19:45; Stop 06/22/19 at 19:57; Status DC Dextrose (Dextrose 50%-Water Syringe) 25 gm 1X ONCE IV Last administered on 06/22/19at 20:37; Start 06/22/19 at 19:45; Stop 06/22/19 at 19:57; Status DC Insulin Human Regular (HumuLIN R VIAL) 10 unit 1X ONCE IV Last administered on 06/22/19at 20:45; Start 06/22/19 at 19:45; Stop 06/22/19 at 19:57; Status DC Calcium Gluconate 1000 mg/Sodium Chloride 110 ml @ 220 mls/hr 1X ONCE IV Last administered on 06/22/19at 20:36; Start 06/22/19 at 20:15; Stop 06/22/19 at 20:44; Status DC Insulin Human Regular 100 unit/ Sodium Chloride 101 ml @ 0 mls/hr CONT PRN IV SEE I/O RECORD Last administered on 07/02/19at 18:55; Start 06/23/19 at 12:15; Stop 07/03/19 at 10:39; Status DC Sodium Phosphate 10 mmol/Magnesium Sulfate 5 meq/ Calcium Gluconate 15 meq/ Multivitamins 10 ml/Chromium/ Copper/Manganese/ Seleni/Zn 0.5 ml/ Insulin Human Regular 10 unit/ Total Parenteral Nutrition/Amino Acids/Dextrose/ Fat Emulsion Intravenous 1,920 ml @ 80 mls/hr TPN CONT IV Last administered on 06/23/19at 22:20; Start 06/23/19 at 22:00; Stop 06/24/19 at 21:59; Status DC Fentanyl Citrate 55 ml @ 1.98 mls/hr CONT PRN IV SEE PROTOCOL Last administered on 07/16/19at 19:58; Start 06/24/19 at 11:45 Sodium Phosphate 10 mmol/Magnesium Sulfate 5 meq/ Calcium Gluconate 15 meq/ Multivitamins 10 ml/Chromium/ Copper/Manganese/ Seleni/Zn 0.5 ml/ Total Parenteral Nutrition/Amino Acids/Dextrose/ Fat Emulsion Intravenous 1,920 ml @ 80 mls/hr TPN CONT IV Last administered on 06/24/19at 22:26; Start 06/24/19 at 22:00; Stop 06/25/19 at 21:59; Status DC Sodium Phosphate 10 mmol/Magnesium Sulfate 5 meq/ Calcium Gluconate 15 meq/ Multivitamins 10 ml/Chromium/ Copper/Manganese/ Seleni/Zn 0.5 ml/ Total Parenteral Nutrition/Amino Acids/Dextrose/ Fat Emulsion Intravenous 1,920 ml @ 80 mls/hr TPN CONT IV Last administered on 06/25/19at 22:27; Start 06/25/19 at 22:00; Stop 06/26/19 at 21:59; Status DC Sodium Phosphate 10 mmol/Magnesium Sulfate 5 meq/ Calcium Gluconate 15 meq/ Multivitamins 10 ml/Chromium/ Copper/Manganese/ Seleni/Zn 0.5 ml/ Total Parenteral Nutrition/Amino Acids/Dextrose/ Fat Emulsion Intravenous 1,920 ml @ 80 mls/hr TPN CONT IV Last administered on 06/26/19at 21:57; Start 06/26/19 at 22:00; Stop 06/27/19 at 21:59; Status DC Furosemide (Lasix) 60 mg 1X ONCE IVP Last administered on 06/26/19at 12:22; Start 06/26/19 at 12:30; Stop 06/26/19 at 12:31; Status DC Dexmedetomidine HCl 400 mcg/ Sodium Chloride 100 ml @ 0 mls/hr CONT PRN IV SEDATION ON VENT Last administered on 07/17/19at 13:24; Start 06/26/19 at 19:00 Sodium Chloride 500 ml @ 500 mls/hr 1X PRN PRN IV SEE COMMENTS; Start 06/26/19 at 19:00 Atropine Sulfate (ATROPINE 0.5mg SYRINGE) 0.5 mg PRN Q5MIN PRN IV SEE COMMENTS; Start 06/26/19 at 19:00 Sodium Bicarbonate (Sodium Bicarb Adult 8.4% Syr) 50 meq 1X ONCE IV ; Start 06/26/19 at 19:30; Stop 06/26/19 at 19:23; Status DC Furosemide (Lasix) 40 mg DAILY IVP Last administered on 07/17/19at 08:25; Start 06/27/19 at 12:00 Propofol 100 ml @ As Directed STK-MED ONCE IV ; Start 06/27/19 at 11:51; Stop 06/27/19 at 11:51; Status DC Propofol 100 ml @ 6.588 mls/ hr CONT PRN IV SEE I/O RECORD Last administered on 07/05/19at 12:08; Start 06/27/19 at 12:00 Sodium Phosphate 10 mmol/Magnesium Sulfate 5 meq/ Calcium Gluconate 15 meq/ Multivitamins 10 ml/Chromium/ Copper/Manganese/ Seleni/Zn 0.5 ml/ Total Parenteral Nutrition/Amino Acids/Dextrose/ Fat Emulsion Intravenous 1,920 ml @ 80 mls/hr TPN CONT IV ; Start 06/27/19 at 22:00; Stop 06/27/19 at 12:55; Status DC Potassium Phosphate 10 mmol/ Magnesium Sulfate 5 meq/Calcium Gluconate 15 meq/ Multivitamins 10 ml/Chromium/ Copper/Manganese/ Seleni/Zn 0.5 ml/ Total Parenteral Nutrition/Amino Acids/Dextrose/ Fat Emulsion Intravenous 1,920 ml @ 80 mls/hr TPN CONT IV Last administered on 06/27/19at 21:38; Start 06/27/19 at 22:00; Stop 06/28/19 at 21:59; Status DC Potassium Chloride/Water 100 ml @ 50 mls/hr 1X ONCE IV Last administered on 06/28/19at 15:00; Start 06/28/19 at 15:00; Stop 06/28/19 at 16:59; Status DC Potassium Phosphate 10 mmol/ Magnesium Sulfate 5 meq/Calcium Gluconate 15 meq/ Multivitamins 10 ml/Chromium/ Copper/Manganese/ Seleni/Zn 0.5 ml/ Potassium Acetate 20 meq/Total Parenteral Nutrition/Amino Acids/Dextrose/ Fat Emulsion Intravenous 1,920 ml @ 80 mls/hr TPN CONT IV Last administered on 06/28/19at 22:14; Start 06/28/19 at 22:00; Stop 06/29/19 at 21:59; Status DC Potassium Chloride/Water 100 ml @ 50 mls/hr 1X ONCE IV Last administered on 06/29/19at 08:57; Start 06/29/19 at 09:00; Stop 06/29/19 at 10:59; Status DC Potassium Phosphate 10 mmol/ Magnesium Sulfate 5 meq/Calcium Gluconate 15 meq/ Multivitamins 10 ml/Chromium/ Copper/Manganese/ Seleni/Zn 0.5 ml/ Potassium Acetate 20 meq/Total Parenteral Nutrition/Amino Acids/Dextrose/ Fat Emulsion Intravenous 1,920 ml @ 80 mls/hr TPN CONT IV Last administered on 06/29/19at 21:32; Start 06/29/19 at 22:00; Stop 06/30/19 at 21:59; Status DC Potassium Phosphate 10 mmol/ Magnesium Sulfate 5 meq/Calcium Gluconate 15 meq/ Multivitamins 10 ml/Chromium/ Copper/Manganese/ Seleni/Zn 0.5 ml/ Potassium Acetate 20 meq/Total Parenteral Nutrition/Amino Acids/Dextrose 1,920 ml @ 80 mls/hr TPN CONT IV Last administered on 06/30/19at 21:38; Start 06/30/19 at 22:00; Stop 07/01/19 at 21:59; Status DC Potassium Phosphate 10 mmol/ Magnesium Sulfate 5 meq/Calcium Gluconate 15 meq/ Multivitamins 10 ml/Chromium/ Copper/Manganese/ Seleni/Zn 0.5 ml/ Potassium Acetate 10 meq/Total Parenteral Nutrition/Amino Acids/Dextrose 1,920 ml @ 80 mls/hr TPN CONT IV Last administered on 07/01/19at 21:30; Start 07/01/19 at 22:00; Stop 07/02/19 at 21:59; Status DC Potassium Phosphate 10 mmol/ Magnesium Sulfate 5 meq/Calcium Gluconate 15 meq/ Multivitamins 10 ml/Chromium/ Copper/Manganese/ Seleni/Zn 0.5 ml/ Potassium Acetate 10 meq/Total Parenteral Nutrition/Amino Acids/Dextrose 1,920 ml @ 80 mls/hr TPN CONT IV Last administered on 07/02/19at 21:36; Start 07/02/19 at 22:00; Stop 07/03/19 at 21:59; Status DC Daptomycin 520 mg/ Sodium Chloride 50 ml @ 100 mls/hr Q24H IV Last administered on 07/13/19at 09:57; Start 07/03/19 at 10:00; Stop 07/14/19 at 09:26; Status DC Insulin Glargine (Lantus Syringe) 30 unit BID SQ Last administered on 07/17/19 08:28; Start 07/03/19 at 11:00 Insulin Human Lispro (HumaLOG) 0-9 UNITS Q6HRS SQ Last administered on 07/17/19at 12:30; Start 07/03/19 at 12:00 Dextrose (Dextrose 50%-Water Syringe) 12.5 gm PRN Q15MIN PRN IV SEE COMMENTS; Start 07/03/19 at 10:30 Potassium Acetate 10 meq/Potassium Phosphate 10 mmol/ Magnesium Sulfate 5 meq/Calcium Gluconate 15 meq/ Multivitamins 10 ml/Chromium/ Copper/Manganese/ Seleni/Zn 0.5 ml/ Total Parenteral Nutrition/Amino Acids/Dextrose 1,920 ml @ 80 mls/hr TPN CONT IV Last administered on 07/03/19at 21:26; Start 07/03/19 at 22:00; Stop 07/04/19 at 21:59; Status DC Linezolid/Dextrose 300 ml @ 300 mls/hr Q12HR IV Last administered on 07/17/19at 09:36; Start 07/04/19 at 09:00 Potassium Acetate 10 meq/Potassium Phosphate 10 mmol/ Magnesium Sulfate 5 meq/Calcium Gluconate 15 meq/ Multivitamins 10 ml/Chromium/ Copper/Manganese/ Seleni/Zn 0.5 ml/ Total Parenteral Nutrition/Amino Acids/Dextrose 1,920 ml @ 80 mls/hr TPN CONT IV Last administered on 07/04/19at 21:13; Start 07/04/19 at 22:00; Stop 07/05/19 at 21:59; Status DC Lidocaine HCl (Buffered Lidocaine 1%) 3 ml STK-MED ONCE .ROUTE ; Start 07/04/19 at 14:23; Stop 07/04/19 at 14:23; Status DC Iohexol (Omnipaque 240 Mg/ml) 50 ml STK-MED ONCE .ROUTE ; Start 07/04/19 at 14:23; Stop 07/04/19 at 14:24; Status DC Lidocaine HCl (Buffered Lidocaine 1%) 3 ml 1X ONCE INJ Last administered on 07/04/19at 15:34; Start 07/04/19 at 14:30; Stop 07/04/19 at 14:31; Status DC Iohexol (Omnipaque 240 Mg/ml) 50 ml 1X ONCE IJ Last administered on 07/04/19at 15:33; Start 07/04/19 at 14:30; Stop 07/04/19 at 14:31; Status DC Info (CONTRAST GIVEN -- Rx MONITORING) 1 each PRN DAILY PRN MC SEE COMMENTS; Start 07/04/19 at 14:30; Stop 07/06/19 at 14:29; Status DC Potassium Acetate 10 meq/Potassium Phosphate 10 mmol/ Magnesium Sulfate 5 meq/Calcium Gluconate 15 meq/ Multivitamins 10 ml/Chromium/ Copper/Manganese/ Seleni/Zn 0.5 ml/ Total Parenteral Nutrition/Amino Acids/Dextrose 1,920 ml @ 80 mls/hr TPN CONT IV Last administered on 07/05/19at 20:59; Start 07/05/19 at 22:00; Stop 07/06/19 at 21:59; Status DC Potassium Acetate 10 meq/Potassium Phosphate 10 mmol/ Magnesium Sulfate 5 meq/Calcium Gluconate 15 meq/ Multivitamins 10 ml/Chromium/ Copper/Manganese/ Seleni/Zn 0.5 ml/ Total Parenteral Nutrition/Amino Acids/Dextrose 1,920 ml @ 80 mls/hr TPN CONT IV Last administered on 07/06/19at 22:51; Start 07/06/19 at 22:00; Stop 07/07/19 at 21:59; Status DC Cefepime HCl (Maxipime) 2 gm Q8HRS IVP Last administered on 07/17/19at 13:23; Start 07/06/19 at 22:00 Metronidazole 100 ml @ 100 mls/hr Q8HRS IV Last administered on 07/17/19at 13:24; Start 07/06/19 at 22:00 Lidocaine HCl (Buffered Lidocaine 1%) 3 ml STK-MED ONCE .ROUTE ; Start 07/07/19 at 10:07; Stop 07/07/19 at 10:07; Status DC Iohexol (Omnipaque 240 Mg/ml) 50 ml STK-MED ONCE .ROUTE ; Start 07/07/19 at 10:07; Stop 07/07/19 at 10:07; Status DC Potassium Acetate 10 meq/Potassium Phosphate 10 mmol/ Magnesium Sulfate 10 meq/Calcium Gluconate 10 meq/ Multivitamins 10 ml/Chromium/ Copper/Manganese/ Seleni/Zn 0.5 ml/ Total Parenteral Nutrition/Amino Acids/Dextrose 1,920 ml @ 80 mls/hr TPN CONT IV Last administered on 07/07/19at 21:50; Start 07/07/19 at 22:00; Stop 07/08/19 at 21:59; Status DC Lidocaine HCl (Buffered Lidocaine 1%) 4 ml 1X ONCE IJ Last administered on 07/07/19at 12:50; Start 07/07/19 at 14:00; Stop 07/07/19 at 14:01; Status DC Iohexol (Omnipaque 240 Mg/ml) 10 ml 1X ONCE IJ Last administered on 07/07/19at 12:50; Start 07/07/19 at 14:00; Stop 07/07/19 at 14:01; Status DC Multi-Ingred Cream/Lotion/Oil/ Oint (Artificial Tears Eye Ointment) 1 devorah PRN Q1HR PRN OU DRY EYE; Start 07/08/19 at 10:30 Potassium Acetate 10 meq/Potassium Phosphate 10 mmol/ Magnesium Sulfate 10 meq/Calcium Gluconate 10 meq/ Multivitamins 10 ml/Chromium/ Copper/Manganese/ Seleni/Zn 0.5 ml/ Total Parenteral Nutrition/Amino Acids/Dextrose/ Fat Emulsion Intravenous 1,635 ml @ 68.125 mls/ hr TPN CONT IV Last administered on 07/08/19at 21:47; Start 07/08/19 at 22:00; Stop 07/09/19 at 21:59; Status DC Potassium Acetate 15 meq/Potassium Phosphate 15 mmol/ Magnesium Sulfate 10 meq/Calcium Gluconate 10 meq/ Multivitamins 10 ml/Chromium/ Copper/Manganese/ Seleni/Zn 0.5 ml/ Total Parenteral Nutrition/Amino Acids/Dextrose/ Fat Emulsion Intravenous 1,920 ml @ 80 mls/hr TPN CONT IV Last administered on 07/09/19at 21:39; Start 07/09/19 at 22:00; Stop 07/10/19 at 21:59; Status DC Potassium Acetate 15 meq/Potassium Phosphate 15 mmol/ Magnesium Sulfate 10 meq/Calcium Gluconate 10 meq/ Multivitamins 10 ml/Chromium/ Copper/Manganese/ Seleni/Zn 0.5 ml/ Total Parenteral Nutrition/Amino Acids/Dextrose/ Fat Emulsion Intravenous 1,920 ml @ 80 mls/hr TPN CONT IV Last administered on 07/10/19at 21:48; Start 07/10/19 at 22:00; Stop 07/11/19 at 21:59; Status DC Potassium Acetate 15 meq/Potassium Phosphate 15 mmol/ Magnesium Sulfate 10 meq/Calcium Gluconate 10 meq/ Multivitamins 10 ml/Chromium/ Copper/Manganese/ Seleni/Zn 0.5 ml/ Total Parenteral Nutrition/Amino Acids/Dextrose/ Fat Emulsion Intravenous 1,920 ml @ 80 mls/hr TPN CONT IV Last administered on 07/11/19at 21:32; Start 07/11/19 at 22:00; Stop 07/12/19 at 21:59; Status DC Lidocaine HCl (Buffered Lidocaine 1%) 6 ml 1X ONCE INJ Last administered on 07/11/19at 14:00; Start 07/11/19 at 14:00; Stop 07/11/19 at 14:02; Status DC Lidocaine HCl (Buffered Lidocaine 1%) 3 ml STK-MED ONCE .ROUTE ; Start 07/11/19 at 13:56; Stop 07/11/19 at 14:13; Status DC Potassium Acetate 15 meq/Potassium Phosphate 15 mmol/ Magnesium Sulfate 10 meq/Calcium Gluconate 10 meq/ Multivitamins 10 ml/Chromium/ Copper/Manganese/ Seleni/Zn 0.5 ml/ Total Parenteral Nutrition/Amino Acids/Dextrose/ Fat Emulsion Intravenous 1,920 ml @ 80 mls/hr TPN CONT IV Last administered on 07/12/19at 21:39; Start 07/12/19 at 22:00; Stop 07/13/19 at 21:59; Status DC Midazolam HCl 100 mg/Sodium Chloride 100 ml @ 9 mls/hr CONT PRN IV SEE PROTOCOL Last administered on 07/17/19at 09:36; Start 07/13/19 at 15:00 Potassium Acetate 15 meq/Potassium Phosphate 15 mmol/ Magnesium Sulfate 10 meq /Calcium Gluconate 10 meq/ Multivitamins 10 ml/Chromium/ Copper/Manganese/ Seleni/Zn 0.5 ml/ Total Parenteral Nutrition/Amino Acids/Dextrose/ Fat Emulsion Intravenous 1,920 ml @ 80 mls/hr TPN CONT IV Last administered on 07/13/19at 22:17; Start 07/13/19 at 22:00; Stop 07/14/19 at 21:59; Status DC Potassium Acetate 15 meq/Potassium Phosphate 15 mmol/ Magnesium Sulfate 10 meq/Calcium Gluconate 10 meq/ Multivitamins 10 ml/Chromium/ Copper/Manganese/ Seleni/Zn 0.5 ml/ Total Parenteral Nutrition/Amino Acids/Dextrose/ Fat Emulsion Intravenous 1,920 ml @ 80 mls/hr TPN CONT IV Last administered on 07/14/19at 22:16; Start 07/14/19 at 22:00; Stop 07/15/19 at 21:59; Status DC Metoprolol Tartrate (Lopressor Vial) 5 mg PRN Q6HRS PRN IVP TACHYCARDIA; Start 07/15/19 at 12:30 Potassium Acetate 15 meq/Potassium Phosphate 18 mmol/ Magnesium Sulfate 15 meq/Calcium Gluconate 10 meq/ Multivitamins 10 ml/Chromium/ Copper/Manganese/ Seleni/Zn 0.5 ml/ Total Parenteral Nutrition/Amino Acids/Dextrose/ Fat Emulsion Intravenous 1,920 ml @ 80 mls/hr TPN CONT IV Last administered on 07/15/19at 22:10; Start 07/15/19 at 22:00; Stop 07/16/19 at 21:59; Status DC Potassium Acetate 15 meq/Potassium Phosphate 18 mmol/ Magnesium Sulfate 15 meq/Calcium Gluconate 10 meq/ Multivitamins 10 ml/Chromium/ Copper/Manganese/ Seleni/Zn 0.5 ml/ Total Parenteral Nutrition/Amino Acids/Dextrose/ Fat Emulsion Intravenous 1,920 ml @ 80 mls/hr TPN CONT IV Last administered on 07/16/19at 22:08; Start 07/16/19 at 22:00; Stop 07/17/19 at 21:59 Bisacodyl (Dulcolax Supp) 10 mg 1X ONCE TN Last administered on 07/16/19at 14:50; Start 07/16/19 at 12:30; Stop 07/16/19 at 12:31; Status DC Sodium Phosphate 15 mmol/Sodium Chloride 105 ml @ 105 mls/hr 1X ONCE IV Last administered on 07/16/19at 12:33; Start 07/16/19 at 14:00; Stop 07/16/19 at 14:59; Status DC Fluconazole/ Sodium Chloride 100 ml @ 100 mls/hr Q24H IV Last administered on 07/17/19at 08:23; Start 07/17/19 at 08:00 Bisacodyl (Dulcolax Supp) 10 mg PRN DAILY PRN [place] CONSTIPATION; Start 07/17/19 at 10:15 Sodium Phosphate 20 mmol/Sodium Chloride 256.6667 ml @ 64.167 m... 1X ONCE IV Last administered on 07/17/19at 14:50; Start 07/17/19 at 14:00; Stop 07/17/19 at 17:59 Potassium Phosphate 23 mmol/ Magnesium Sulfate 15 meq/Calcium Gluconate 10 meq/ Multivitamins 10 ml/Chromium/ Copper/Manganese/ Seleni/Zn 0.5 ml/ Total Parenteral Nutrition/Amino Acids/Dextrose/ Fat Emulsion Intravenous 1,920 ml @ 80 mls/hr TPN CONT IV ; Start 07/17/19 at 22:00; Stop 07/18/19 at 21:59 Active Scripts Active Vitals/I & O Vital Sign - Last 24 Hours 07/16/19 07/16/19 07/16/19 07/16/19 16:00 16:00 16:00 17:00 Temp 99.9 99.9 Pulse 111 112 Resp 26 24 B/P (MAP) 160/83 (108) 160/73 (102) Pulse Ox 100 100 100 O2 Delivery Mechanical Ventilator AVAPS V60 AVAPS AVAPS 07/16/19 07/16/19 07/16/19 07/16/19 18:00 19:00 19:58 20:00 Pulse 108 102 Resp 22 30 B/P (MAP) 133/72 (92) 131/75 (93) Pulse Ox 100 100 100 O2 Delivery AVAPS AVAPS BiPAP/CPAP Mechanical Ventilator 07/16/19 07/16/19 07/16/19 07/16/19 20:00 20:25 21:00 22:00 Temp 101.0 101.0 Pulse 112 108 120 Resp 30 28 B/P (MAP) 148/81 (103) 147/88 (107) 137/82 (100) Pulse Ox 100 40 100 100 O2 Delivery AVAPS AVAPS AVAPS 07/16/19 07/16/19 07/16/19 07/16/19 23:00 23:00 23:59 23:59 Temp 99.8 99.8 Pulse 115 92 Resp B/P (MAP) 115/76 (89) 130/76 (94) Pulse Ox 100 100 100 O2 Delivery V60 AVAPS AVAPS AVAPS Mechanical Ventilator 07/17/19 07/17/19 07/17/19 07/17/19 01:00 02:00 02:11 03:00 Pulse 96 96 93 Resp 24 20 B/P (MAP) 104/59 (74) 113/72 (86) 128/75 (92) Pulse Ox 100 100 100 100 O2 Delivery AVAPS AVAPS V60 AVAPS AVAPS 07/17/19 07/17/19 07/17/19 07/17/19 04:00 04:00 05:00 05:08 Temp 99.4 99.4 Pulse 90 93 Resp B/P (MAP) 121/76 (91) 123/73 (90) Pulse Ox 100 100 100 O2 Delivery Mechanical Ventilator AVAPS AVAPS V60 AVAPS 07/17/19 07/17/19 07/17/19 07/17/19 06:00 07:00 07:56 08:00 Pulse 102 116 Resp B/P (MAP) 146/85 (105) 158/87 (110) Pulse Ox 100 100 100 O2 Delivery AVAPS AVAPS V60 AVAPS Mechanical Ventilator 07/17/19 07/17/19 07/17/19 07/17/19 08:00 09:00 10:00 11:00 Temp 101.1 101.1 Pulse 96 112 94 94 Resp 24 28 17 24 B/P (MAP) 99/56 (70) 151/49 (83) 95/55 (68) 100/57 (71) Pulse Ox 100 100 100 100 O2 Delivery Ventilator Ventilator Ventilator Ventilator 07/17/19 07/17/19 07/17/19 07/17/19 12:00 12:00 12:14 13:00 Temp 98.8 98.8 Pulse 96 102 Resp 20 20 B/P (MAP) 104/59 (74) 113/68 (83) Pulse Ox 100 100 100 O2 Delivery Mechanical Ventilator Ventilator V60 AVAPS Ventilator 07/17/19 14:00 Pulse 102 Resp 20 B/P (MAP) 115/75 (88) Pulse Ox 100 O2 Delivery Ventilator Intake and Output 07/16/19 07/16/19 07/17/19 15:00 23:00 07:00 Intake Total 100 ml 1573 ml 1564 ml Output Total 1080 ml 850 ml 994 ml Balance -980 ml 723 ml 570 ml Hemodynamically unstable?: No Is patient in severe pain?: No Is NPO status required?: Yes BRENDA JONAS MD Jul 17, 2019 15:11
[2019-07-17] MEDS: PROPOFOL 100 ML IV PRN ×2 (15:35→22:32)
--- NOTE | 2019-07-17 15:43 | PDOC ---
PULMONARY PROGRESS NOTES Subjective Hemodynamically stable, currently on AVAPS respirator had increase R/R when sedation weaned fevers low grade Vitals Vital Signs Date Time Temp Pulse Resp B/P (MAP) Pulse Ox O2 Delivery O2 Flow Rate FiO2 07/17/19 15:00 97 20 106/60 (75) 100 Ventilator 07/17/19 12:00 98.8 98.8 Lungs: Other (decreased) Cardiovascular: S1 Abdomen: Other (distended) Extremities: No Edema Skin: Warm Labs Laboratory Tests Test 07/15/19 17:00 07/16/19 00:07 07/16/19 06:00 07/16/19 06:18 Glucose (Fingerstick) 202 mg/dL (70-99) 213 mg/dL (70-99) 232 mg/dL (70-99) Sodium Level 138 mmol/L (136-145) Potassium Level 4.3 mmol/L (3.5-5.1) Chloride Level 105 mmol/L (98-107) Carbon Dioxide Level 30 mmol/L (21-32) Anion Gap 3 (6-14) Blood Urea Nitrogen 26 mg/dL (8-26) Creatinine 0.9 mg/dL (0.7-1.3) Estimated GFR (Cockcroft-Gault) 108.5 Glucose Level 243 mg/dL (70-99) Calcium Level 7.9 mg/dL (8.5-10.1) Phosphorus Level 2.4 mg/dL (2.6-4.7) Magnesium Level 1.9 mg/dL (1.8-2.4) Test 07/16/19 07:35 07/16/19 12:02 07/16/19 17:28 07/17/19 00:06 O2 Saturation 98 % (92-99) Arterial Blood pH 7.37 (7.35-7.45) Arterial Blood pCO2 at Patient Temp 45 mmHg (35-46) Arterial Blood pO2 at Patient Temp 116 mmHg (75-108) Arterial Blood HCO3 26 mmol/L (21-28) Arterial Blood Base Excess 0 mmol/L (-3-3) FiO2 40% Glucose (Fingerstick) 204 mg/dL (70-99) 214 mg/dL (70-99) 208 mg/dL (70-99) Test 07/17/19 06:00 07/17/19 06:17 07/17/19 08:00 07/17/19 12:27 White Blood Count 10.2 x10^3/uL (4.0-11.0) Red Blood Count 2.64 x10^6/uL (4.30-5.70) Hemoglobin 7.6 g/dL (13.0-17.5) Hematocrit 23.8 % (39.0-53.0) Mean Corpuscular Volume 90 fL (79-100) Mean Corpuscular Hemoglobin 29 pg (25-35) Mean Corpuscular Hemoglobin Concent 32 g/dL (31-37) Red Cell Distribution Width 15.7 % (11.5-14.5) Platelet Count 309 x10^3/uL (140-400) Sodium Level 140 mmol/L (136-145) Potassium Level 4.3 mmol/L (3.5-5.1) Chloride Level 105 mmol/L (98-107) Carbon Dioxide Level 29 mmol/L (21-32) Anion Gap 6 (6-14) Blood Urea Nitrogen 23 mg/dL (8-26) Creatinine 0.9 mg/dL (0.7-1.3) Estimated GFR (Cockcroft-Gault) 108.5 Glucose Level 224 mg/dL (70-99) Calcium Level 7.9 mg/dL (8.5-10.1) Phosphorus Level 2.3 mg/dL (2.6-4.7) Magnesium Level 1.9 mg/dL (1.8-2.4) Glucose (Fingerstick) 229 mg/dL (70-99) 210 mg/dL (70-99) O2 Saturation 98 % (92-99) Arterial Blood pH 7.42 (7.35-7.45) Arterial Blood pCO2 at Patient Temp 48 mmHg (35-46) Arterial Blood pO2 at Patient Temp 149 mmHg (75-108) Arterial Blood HCO3 30 mmol/L (21-28) Arterial Blood Base Excess 5 mmol/L (-3-3) FiO2 40 Laboratory Tests Test 07/16/19 17:28 07/17/19 00:06 07/17/19 06:00 07/17/19 06:17 Glucose (Fingerstick) 214 mg/dL (70-99) 208 mg/dL (70-99) 229 mg/dL (70-99) White Blood Count 10.2 x10^3/uL (4.0-11.0) Red Blood Count 2.64 x10^6/uL (4.30-5.70) Hemoglobin 7.6 g/dL (13.0-17.5) Hematocrit 23.8 % (39.0-53.0) Mean Corpuscular Volume 90 fL (79-100) Mean Corpuscular Hemoglobin 29 pg (25-35) Mean Corpuscular Hemoglobin Concent 32 g/dL (31-37) Red Cell Distribution Width 15.7 % (11.5-14.5) Platelet Count 309 x10^3/uL (140-400) Sodium Level 140 mmol/L (136-145) Potassium Level 4.3 mmol/L (3.5-5.1) Chloride Level 105 mmol/L (98-107) Carbon Dioxide Level 29 mmol/L (21-32) Anion Gap 6 (6-14) Blood Urea Nitrogen 23 mg/dL (8-26) Creatinine 0.9 mg/dL (0.7-1.3) Estimated GFR (Cockcroft-Gault) 108.5 Glucose Level 224 mg/dL (70-99) Calcium Level 7.9 mg/dL (8.5-10.1) Phosphorus Level 2.3 mg/dL (2.6-4.7) Magnesium Level 1.9 mg/dL (1.8-2.4) Test 07/17/19 08:00 07/17/19 12:27 O2 Saturation 98 % (92-99) Arterial Blood pH 7.42 (7.35-7.45) Arterial Blood pCO2 at Patient Temp 48 mmHg (35-46) Arterial Blood pO2 at Patient Temp 149 mmHg (75-108) Arterial Blood HCO3 30 mmol/L (21-28) Arterial Blood Base Excess 5 mmol/L (-3-3) FiO2 40 Glucose (Fingerstick) 210 mg/dL (70-99) Medications Active Scripts Medications Dose Route/Sig Max Daily Dose Days Date Category Comments cxr 07/14 reviewed poor insp effort Left basal effusion/ atelectasis CT chest IMPRESSION: Infiltrates with air bronchograms posterior medially at the right lung base without change. Moderate left pleural effusion with atelectasis or infiltrate at the left lung base without significant change. Continued presence of an enlarged edematous pancreas with inflammatory changes in the mesentery consistent with history of necrotic pancreatitis and showing some mild improvement. Continued presence of drainage tubes in the upper abdomen with no significant fluid collections surrounding the tips of these tubes. There is however still some free fluid present in the abdomen abdomen. Soft tissue process anteriorly within the cardiac fat pad which appears slightly more prominent than on previous examination and may reflect an inflammatory process. Impression . IMPRESSION: 1. Acute hypoxemic respiratory failure, multifactorial, 2. Acute gallstone pancreatitis./ Necrosis. s/p Exploratory laparotomy, pancreatic necrosectomy, cholecystostomy tube placement, Gastrostomy placement with jejunal extension, tracheostomy placement (specifically 8 shiley cuffed) 06/21 3. Acute kidney failure. improving 4. Metabolic toxic encephalopathy. 5. Hyperkalemia.corrected 6. Metabolic / respiratory acidosis 7. Hypocalcemia. 8. POSSIBLE ABD COMPARTMENT SYNDROME , s/p Exp lap 9. HEP B S POSITIVE 10. Hypernatremia, resolved 11. LLL small effusion, monitor 12. FEVER PER ID, improvement afebrile the last 48 hours 13. Occlusive thrombus within the cephalic vein no DVT on ultrasound ri Repeat CT Infiltrates with air bronchograms posterior medially at the right lung base without change. Moderate left pleural effusion with atelectasis or infiltrate at the left lung base without significant change. Continued presence of an enlarged edematous pancreas with inflammatory changes in the mesentery consistent with history of necrotic pancreatitis and showing some mild improvement. Continued presence of drainage tubes in the upper abdomen with no significant fluid collections surrounding the tips of these tubes. There is however still some free fluid present in the abdomen abdomen. Soft tissue process anteriorly within the cardiac fat pad which appears slightly more prominent than on previous examination and may reflect an inflammatory process. Plan . Contine AVAPS at current settings needs PRN Paralytics continue current sedation/ narcotics, very difficult to wean sedation Antibiotics per ID Any further CT abdomen, will defer to ID and surgery Not ready for spontaneous trial Follow surgery input Nutrition per TPN Continue current antibiotics per ID Monitor Hb DVT GI prophylaxis Case discussed with RN Total cumulative critical care time of 30 minutes reviewing data, labs, x-ray, TAYA PEREIRA MD Jul 17, 2019 15:43
--- NOTE | 2019-07-17 15:50 | NUR ---
SS following for discharge planning. SS discussed with pt RN. Pt accepted at [facility], ; fax [phone]. Dr. Dawson not ready to sign off at this time. SS will continue to follow for discharge planning.
[2019-07-17] MEDS: fentaNYL HIGH DOSE PCA 55 ML IV PRN (16:30)
[2019-07-17] MEDS: IV NORMAL SALINE 1000ML BAG 1,000 ML IV SCH (17:43)
[2019-07-17] MEDS ORDERED: AMINO ACID IV SCH ×8 (22:00)
[2019-07-17] MEDS ORDERED: TOTAL PARENTERAL NUTRITION IV SCH ×8 (22:00)
[2019-07-17] MEDS ORDERED: DEXTROSE 70% IV SCH ×8 (22:00)
[2019-07-17] MEDS ORDERED: [UNRECOGNIZED DRUG - OTHER] IV SCH ×8 (22:00)
[2019-07-18] VITALS (24 sets, daily range): BP systolic 94–150; BP diastolic 56–90
[2019-07-18] MEDS: MIDAZOLAM HCL 100 MG in IV NORMAL SALINE 100ML 100 ML IV PRN (00:29)
[2019-07-18] MEDS: DEXMEDETOMIDINE 400 MCG in IV NORMAL SALINE 100ML 96 ML IV PRN ×7 (00:39→22:17)
[2019-07-18] MEDS: PROPOFOL 100 ML IV PRN ×4 (05:39→22:17)
[2019-07-18] MEDS: CEFEPIME HCL IV Push 2 GM VIAL. IVP SCH ×3 (06:00→21:48)
[2019-07-18] MEDS: PANTOPRAZOLE IV PUSH 40 MG VIAL. IVP SCH ×2 (06:54→16:15)
[2019-07-18] MEDS: INSULIN LISPRO 300 UNITS/3 ML VIAL. SQ SCH ×3 (07:06→16:20)
[2019-07-18] MEDS: ENOXAPARIN 40 MG/0.4 ML SYRINGE. SQ SCH (07:08)
[2019-07-18 07:20] LABS: CREATININE 0.9 mg/dL (0.7-1.3); GFR 108.5; PHOSPHORUS 2.6 mg/dL (2.6-4.7); POTASSIUM 4.3 mmol/L (3.5-5.1)
[2019-07-18] MEDS: ALBUTEROL SULFATE 2.5 MG/3 ML NEBU. NEB SCH ×4 (07:21→21:30)
--- NOTE | 2019-07-18 08:07 | PDOC ---
PULMONARY PROGRESS NOTES Subjective Hemodynamically stable, currently on AVAPS respirator beinged weaned off versed/ on low dose propofol fevers low grade Vitals Vital Signs Date Time Temp Pulse Resp B/P (MAP) Pulse Ox O2 Delivery O2 Flow Rate FiO2 07/18/19 07:22 98 V60 AVAPS 07/17/19 18:00 93 20 119/75 (90) 07/17/19 16:00 99.2 99.2 Lungs: Other (decreased) Cardiovascular: S1 Abdomen: Other (distended) Extremities: No Edema Skin: Warm Labs Laboratory Tests Test 07/16/19 12:02 07/16/19 17:28 07/17/19 00:06 07/17/19 06:00 Glucose (Fingerstick) 204 mg/dL (70-99) 214 mg/dL (70-99) 208 mg/dL (70-99) White Blood Count 10.2 x10^3/uL (4.0-11.0) Red Blood Count 2.64 x10^6/uL (4.30-5.70) Hemoglobin 7.6 g/dL (13.0-17.5) Hematocrit 23.8 % (39.0-53.0) Mean Corpuscular Volume 90 fL (79-100) Mean Corpuscular Hemoglobin 29 pg (25-35) Mean Corpuscular Hemoglobin Concent 32 g/dL (31-37) Red Cell Distribution Width 15.7 % (11.5-14.5) Platelet Count 309 x10^3/uL (140-400) Sodium Level 140 mmol/L (136-145) Potassium Level 4.3 mmol/L (3.5-5.1) Chloride Level 105 mmol/L (98-107) Carbon Dioxide Level 29 mmol/L (21-32) Anion Gap 6 (6-14) Blood Urea Nitrogen 23 mg/dL (8-26) Creatinine 0.9 mg/dL (0.7-1.3) Estimated GFR (Cockcroft-Gault) 108.5 Glucose Level 224 mg/dL (70-99) Calcium Level 7.9 mg/dL (8.5-10.1) Phosphorus Level 2.3 mg/dL (2.6-4.7) Magnesium Level 1.9 mg/dL (1.8-2.4) Test 07/17/19 06:17 07/17/19 08:00 07/17/19 12:27 07/17/19 17:39 Glucose (Fingerstick) 229 mg/dL (70-99) 210 mg/dL (70-99) 194 mg/dL (70-99) O2 Saturation 98 % (92-99) Arterial Blood pH 7.42 (7.35-7.45) Arterial Blood pCO2 at Patient Temp 48 mmHg (35-46) Arterial Blood pO2 at Patient Temp 149 mmHg (75-108) Arterial Blood HCO3 30 mmol/L (21-28) Arterial Blood Base Excess 5 mmol/L (-3-3) FiO2 40 Test 07/17/19 22:56 07/18/19 06:50 07/18/19 07:03 Glucose (Fingerstick) 211 mg/dL (70-99) 184 mg/dL (70-99) Sodium Level 138 mmol/L (136-145) Potassium Level 4.3 mmol/L (3.5-5.1) Chloride Level 105 mmol/L (98-107) Carbon Dioxide Level 29 mmol/L (21-32) Anion Gap 4 (6-14) Blood Urea Nitrogen 21 mg/dL (8-26) Creatinine 0.9 mg/dL (0.7-1.3) Estimated GFR (Cockcroft-Gault) 108.5 Glucose Level 194 mg/dL (70-99) Calcium Level 8.0 mg/dL (8.5-10.1) Phosphorus Level 2.6 mg/dL (2.6-4.7) Laboratory Tests Test 07/17/19 12:27 07/17/19 17:39 07/17/19 22:56 07/18/19 06:50 Glucose (Fingerstick) 210 mg/dL (70-99) 194 mg/dL (70-99) 211 mg/dL (70-99) Sodium Level 138 mmol/L (136-145) Potassium Level 4.3 mmol/L (3.5-5.1) Chloride Level 105 mmol/L (98-107) Carbon Dioxide Level 29 mmol/L (21-32) Anion Gap 4 (6-14) Blood Urea Nitrogen 21 mg/dL (8-26) Creatinine 0.9 mg/dL (0.7-1.3) Estimated GFR (Cockcroft-Gault) 108.5 Glucose Level 194 mg/dL (70-99) Calcium Level 8.0 mg/dL (8.5-10.1) Phosphorus Level 2.6 mg/dL (2.6-4.7) Test 07/18/19 07:03 Glucose (Fingerstick) 184 mg/dL (70-99) Medications Active Scripts Medications Dose Route/Sig Max Daily Dose Days Date Category Comments cxr 07/14 reviewed poor insp effort Left basal effusion/ atelectasis CT chest IMPRESSION: Infiltrates with air bronchograms posterior medially at the right lung base without change. Moderate left pleural effusion with atelectasis or infiltrate at the left lung base without significant change. Continued presence of an enlarged edematous pancreas with inflammatory changes in the mesentery consistent with history of necrotic pancreatitis and showing some mild improvement. Continued presence of drainage tubes in the upper abdomen with no significant fluid collections surrounding the tips of these tubes. There is however still some free fluid present in the abdomen abdomen. Soft tissue process anteriorly within the cardiac fat pad which appears slightly more prominent than on previous examination and may reflect an inflammatory process. Impression . IMPRESSION: 1. Acute hypoxemic respiratory failure, multifactorial, 2. Acute gallstone pancreatitis./ Necrosis. s/p Exploratory laparotomy, pancreatic necrosectomy, cholecystostomy tube placement, Gastrostomy placement with jejunal extension, tracheostomy placement (specifically 8 shiley cuffed) 06/21 3. Acute kidney failure. improving 4. Metabolic toxic encephalopathy. 5. Hyperkalemia.corrected 6. Metabolic / respiratory acidosis 7. Hypocalcemia. 8. POSSIBLE ABD COMPARTMENT SYNDROME , s/p Exp lap 9. HEP B S POSITIVE 10. Hypernatremia, resolved 11. LLL small effusion, monitor 12. FEVER PER ID, improvement afebrile the last 48 hours 13. Occlusive thrombus within the cephalic vein no DVT on ultrasound ri Repeat CT Infiltrates with air bronchograms posterior medially at the right lung base without change. Moderate left pleural effusion with atelectasis or infiltrate at the left lung base without significant change. Continued presence of an enlarged edematous pancreas with inflammatory changes in the mesentery consistent with history of necrotic pancreatitis and showing some mild improvement. Continued presence of drainage tubes in the upper abdomen with no significant fluid collections surrounding the tips of these tubes. There is however still some free fluid present in the abdomen abdomen. Soft tissue process anteriorly within the cardiac fat pad which appears slightly more prominent than on previous examination and may reflect an inflammatory process. Plan . Contine AVAPS at current settings needs PRN Paralytics very difficult to wean sedation. will try to wean off versed, try low dose propofol Antibiotics per ID Any further CT abdomen, will defer to ID and surgery Not ready for spontaneous trial Follow surgery input Nutrition per TPN Continue current antibiotics per ID Monitor Hb DVT GI prophylaxis Case discussed with RN Total cumulative critical care time of 30 minutes reviewing data, labs, x-ray, TAYA PEREIRA MD Jul 18, 2019 08:07
[2019-07-18] MEDS ORDERED: LIDOCAINE 1%/EPI 1:100,000 20 ML VIAL. ONE (08:20)
--- NOTE | 2019-07-18 08:30 | PDOC ---
Infectious Disease Note Subjective Subjective pt is on vent awake and follows some command ROS ROS no n/v//d/sob Vital Sign Vital Signs Vital Signs Date Time Temp Pulse Resp B/P (MAP) Pulse Ox O2 Delivery O2 Flow Rate FiO2 07/18/19 07:22 98 V60 AVAPS 07/17/19 18:00 93 20 119/75 (90) 07/17/19 16:00 99.2 99.2 Physical Exam PHYSICAL EXAM GENERAL: Sedated, trached/vent, HEENT: Pupils equal reactive - mild icteric NECK: Trach LUNGS: Diminished aeration bases HEART: S1, S2, regular ABDOMEN: Distended, bowel sounds quiet, drains x5, wound vac in place : [place] in place EXTREMITIES: 1+ edema, no cyanosis. SCDs bilaterally SKIN: Warm, moist. 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 Labs Lab Laboratory Tests Test 07/17/19 12:27 07/17/19 17:39 07/17/19 22:56 07/18/19 06:50 Glucose (Fingerstick) 210 mg/dL (70-99) 194 mg/dL (70-99) 211 mg/dL (70-99) Sodium Level 138 mmol/L (136-145) Potassium Level 4.3 mmol/L (3.5-5.1) Chloride Level 105 mmol/L (98-107) Carbon Dioxide Level 29 mmol/L (21-32) Anion Gap 4 (6-14) Blood Urea Nitrogen 21 mg/dL (8-26) Creatinine 0.9 mg/dL (0.7-1.3) Estimated GFR (Cockcroft-Gault) 108.5 Glucose Level 194 mg/dL (70-99) Calcium Level 8.0 mg/dL (8.5-10.1) Phosphorus Level 2.6 mg/dL (2.6-4.7) Test 07/18/19 07:03 Glucose (Fingerstick) 184 mg/dL (70-99) Micro Microbiology 06/20/19 Blood Culture - Preliminary, Resulted NO GROWTH AFTER 2 DAYS Objective Assessment Fever - ? ileus/pancreatitis/abd distension/pleural effusion/occlusive clot in cephalic - blood cults 07/05 - neg - lines chg'd 07/06 LIJ Leukocytosis - better - ? reactive given procedure 07/06, better Left pleural effusion s/p thoracentesis, 07/10 - PH 7.34, nucleated cells 1580, RBC 54946. glu 149,TP 3.2, LDH 269. cultures pending Gallbladder stone pancreatitis s/p expl lap, pancreatic necrosectomy, cholecystostomy tube placement, G-tube placement with jejunal extension, 06/21 -gastrostomy tube repositioned by IR 07/03; s/p Jejunostomy placement 07/06 per nursing, no report Intra-abd fluid collections Sepsis from GI - cult neg Acute Resp failure - s/p trach 06/21, vent dependent Lactic acidosis. Acute kidney injury previously requiring dialysis - now with improved UOP, HDC now out Metabolic acidosis. Hypocalcemia Right arm swelling, + occlusive thrombosis within the cephalic vein, no DVT on US Yeast in sputum from 07/03 likely represents colonization - was on antifungal when collected Anemia s/p PRBCs 07/05 Plan Plan of Care Continue cefepime/Flagyl (07/05) and Zyvox Cultures neg Maintain aspiration precaution. Gen surgery following D/w nursing repeat bc change cvavis and KRISTIAN You MD Jul 18, 2019 08:30
[2019-07-18] MEDS ORDERED: HEPARIN PF 500 UNIT/5 ML DISP.SYRIN. IVP ONE (09:27)
[2019-07-18] MEDS ORDERED: LIDOCAINE 1%/EPI 1:100,000 20 ML VIAL. INJ ONE (09:45)
--- NOTE | 2019-07-18 10:35 | PDOC ---
Objective: Objective: D/w nurse - no changes, tolerating tube feeds. Vital Signs: Vital Signs Date Time Temp Pulse Resp B/P (MAP) Pulse Ox O2 Delivery O2 Flow Rate FiO2 07/18/19 07:22 98 V60 AVAPS 07/18/19 07:00 106 20 150/90 (110) 07/18/19 04:00 99.0 99.0 Labs: Laboratory Tests Test 07/17/19 12:27 07/17/19 17:39 07/17/19 22:56 07/18/19 06:50 Glucose (Fingerstick) 210 mg/dL 194 mg/dL 211 mg/dL Sodium Level 138 mmol/L Potassium Level 4.3 mmol/L Chloride Level 105 mmol/L Carbon Dioxide Level 29 mmol/L Anion Gap 4 Blood Urea Nitrogen 21 mg/dL Creatinine 0.9 mg/dL Estimated GFR (Cockcroft-Gault) 108.5 Glucose Level 194 mg/dL Calcium Level 8.0 mg/dL Phosphorus Level 2.6 mg/dL Test 07/18/19 07:03 Glucose (Fingerstick) 184 mg/dL PE: GEN: IR staff present for procedure A/P: S/p pancreatic necrosectomy, MOSF -- Continue support. Hemodynamically unstable?: No Is patient in severe pain?: No Is NPO status required?: Yes PAXTON ALEXANDER Jul 18, 2019 10:35
[2019-07-18] MEDS: FUROSEMIDE 40 MG/4 ML VIAL. IVP SCH (11:11)
[2019-07-18] MEDS: FLUCONAZOLE 200MG/100ML PREMIX 100 ML IV SCH ×2 (11:11→14:44)
[2019-07-18] MEDS: INSULIN GLARGINE SYRINGE. SQ SCH ×2 (11:13→20:53)
--- NOTE | 2019-07-18 11:18 | PDOC ---
SURGICAL PROGRESS NOTE Subjective tolerating tube feeds no changes per nursing Vital Signs Vital Signs Date Time Temp Pulse Resp B/P (MAP) Pulse Ox O2 Delivery O2 Flow Rate FiO2 07/18/19 11:00 92 20 107/61 (76) 100 Ventilator 07/18/19 04:00 99.0 99.0 I&O Intake and Output 07/18/19 07:00 Intake Total 4045.88 ml Output Total 4210 ml Balance -164.12 ml Intake Oral 0 ml IV Total 3353.88 ml Tube Feeding 492 ml Blood Product IV Normal Saline Flush 150 ml Other 50 ml Output Urine Total 3720 ml Drainage Total 490 ml General: Other (sedated) Abdomen: Soft, Other (drains in place) Labs Laboratory Tests Test 07/16/19 12:02 07/16/19 17:28 07/17/19 00:06 07/17/19 06:00 Glucose (Fingerstick) 204 mg/dL (70-99) 214 mg/dL (70-99) 208 mg/dL (70-99) White Blood Count 10.2 x10^3/uL (4.0-11.0) Red Blood Count 2.64 x10^6/uL (4.30-5.70) Hemoglobin 7.6 g/dL (13.0-17.5) Hematocrit 23.8 % (39.0-53.0) Mean Corpuscular Volume 90 fL (79-100) Mean Corpuscular Hemoglobin 29 pg (25-35) Mean Corpuscular Hemoglobin Concent 32 g/dL (31-37) Red Cell Distribution Width 15.7 % (11.5-14.5) Platelet Count 309 x10^3/uL (140-400) Sodium Level 140 mmol/L (136-145) Potassium Level 4.3 mmol/L (3.5-5.1) Chloride Level 105 mmol/L (98-107) Carbon Dioxide Level 29 mmol/L (21-32) Anion Gap 6 (6-14) Blood Urea Nitrogen 23 mg/dL (8-26) Creatinine 0.9 mg/dL (0.7-1.3) Estimated GFR (Cockcroft-Gault) 108.5 Glucose Level 224 mg/dL (70-99) Calcium Level 7.9 mg/dL (8.5-10.1) Phosphorus Level 2.3 mg/dL (2.6-4.7) Magnesium Level 1.9 mg/dL (1.8-2.4) Test 07/17/19 06:17 07/17/19 08:00 07/17/19 12:27 07/17/19 17:39 Glucose (Fingerstick) 229 mg/dL (70-99) 210 mg/dL (70-99) 194 mg/dL (70-99) O2 Saturation 98 % (92-99) Arterial Blood pH 7.42 (7.35-7.45) Arterial Blood pCO2 at Patient Temp 48 mmHg (35-46) Arterial Blood pO2 at Patient Temp 149 mmHg (75-108) Arterial Blood HCO3 30 mmol/L (21-28) Arterial Blood Base Excess 5 mmol/L (-3-3) FiO2 40 Test 07/17/19 22:56 07/18/19 06:50 07/18/19 07:03 Glucose (Fingerstick) 211 mg/dL (70-99) 184 mg/dL (70-99) Sodium Level 138 mmol/L (136-145) Potassium Level 4.3 mmol/L (3.5-5.1) Chloride Level 105 mmol/L (98-107) Carbon Dioxide Level 29 mmol/L (21-32) Anion Gap 4 (6-14) Blood Urea Nitrogen 21 mg/dL (8-26) Creatinine 0.9 mg/dL (0.7-1.3) Estimated GFR (Cockcroft-Gault) 108.5 Glucose Level 194 mg/dL (70-99) Calcium Level 8.0 mg/dL (8.5-10.1) Phosphorus Level 2.6 mg/dL (2.6-4.7) Laboratory Tests Test 07/17/19 12:27 07/17/19 17:39 07/17/19 22:56 07/18/19 06:50 Glucose (Fingerstick) 210 mg/dL (70-99) 194 mg/dL (70-99) 211 mg/dL (70-99) Sodium Level 138 mmol/L (136-145) Potassium Level 4.3 mmol/L (3.5-5.1) Chloride Level 105 mmol/L (98-107) Carbon Dioxide Level 29 mmol/L (21-32) Anion Gap 4 (6-14) Blood Urea Nitrogen 21 mg/dL (8-26) Creatinine 0.9 mg/dL (0.7-1.3) Estimated GFR (Cockcroft-Gault) 108.5 Glucose Level 194 mg/dL (70-99) Calcium Level 8.0 mg/dL (8.5-10.1) Phosphorus Level 2.6 mg/dL (2.6-4.7) Test 07/18/19 07:03 Glucose (Fingerstick) 184 mg/dL (70-99) Problem List Problems Medical Problems: (1) Acute pancreatitis Status: Acute (2) Nausea & vomiting Status: Acute Assessment/Plan supportive care MAXIMILIANO GREENBERG APRN Jul 18, 2019 11:18
--- NOTE | 2019-07-18 11:52 | RAD ---
CHEST AP ONLY INDICATION: Respiratory failure. COMPARISON STUDY: 07/15/2019. FINDINGS: Life Support Devices: Tracheostomy. Stable left IJ central venous catheter. New right IJ dual-lumen catheter terminating in the upper right atrium. Lungs: Low lung volume. Increased patchy bilateral opacities. Pleura: Trace bilateral pleural effusions. Heart and Mediastinum: Stable cardiomediastinal silhouette and great vessels. IMPRESSION: 1. Increased patchy bilateral opacities. 2. Trace bilateral pleural effusions. 3. Life support devices as above. Electronically signed by: Charlie Mcduffie MD (07/18/2019 11:49 AM) [id number]
[2019-07-18] MEDS: TPN PER PHARMACY MC PRN (13:34)
--- NOTE | 2019-07-18 13:35 | NUR ---
Pharmacy TPN Dosing Note S: CHRISTOPHER NEWSOME is a 49 year old M Currently receiving Central Continuous TPN started 06/19/19 B:Pertinent PMH: PANCREATITIS Height: 5 feet, 9 inches Weight: 105.3 kg Current diet: NPO LABS: Sodium: 138 Potassium: 4.3 Chloride: 105 Calcium: 8.0 Corrected Calcium: 10.32 Magnesium: 1.9 CO2: 29 SCr: 0.9 Glucose: 194, 184 Albumin: 1.1 AST: 58 ALT: 45 TPN FORMULA: TPN TYPE: Central Continuous AMINO ACIDS: 145 gm DEXTROSE: 285 gm LIPIDS: 20 gm POTASSIUM PHOSPHATE: 23 mmol MAGNESIUM: 15 mEq CALCIUM: 10 mEq MULTIPLE VITAMIN: 10 ml TRACE ELEMENTS: 0.5 ml TPN PLAN: -Electrolytes WNL and stable. No changes in TPN. -No labs needed tomorrow due to TPN stability. R: Continue TPN @ current rate and with above formula. Will monitor electrolytes, glucose, and tolerance to TPN. JESE HAGEN [facility], 07/18/19 [id number]
--- NOTE | 2019-07-18 14:11 | NUR ---
SS following for discharge planning. SS discussed with pt RN and physician. Pt accepted at [facility], ; fax [phone]. SS phoned and faxed clinical updates to [facility]. Pt critical and not ready. Pt remains on the vent at this time. Surgery continuing to follow. SS will continue to follow for discharge planning.
--- NOTE | 2019-07-18 14:33 | RAD ---
Procedure: Ultrasound guided placement of tunnel central venous catheter. 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 Discussion of the risks included, but was not limited to, those that are most frequent and those that are rare but possibly severe or life-threatening, as well as the possibility of unforeseen complications. Sterility: All elements of maximal sterile barrier technique including the use of a cap, mask, sterile gown, sterile gloves, large sterile sheet, appropriate hand hygiene, and 2% chlorhexidine for cutaneous antisepsis (or acceptable alternative antiseptic per current guidelines) were followed for this procedure. Technique and Findings: Following informed consent, the patient was prepped and draped in the usual sterile fashion. Ultrasound interrogation of the right neck revealed patency and compressibility of the right internal jugular vein. A 21-gauge micropuncture was then used to gain access to this vein under ultrasound guidance. A hard copy ultrasound image was recorded. The needle was exchanged over a wire for a sheath. A small incision was made several centimeters inferior to the right clavicle. A power line was trimmed to length, advanced from the small skin incision to the venotomy site, and then advanced through a peel-away. Catheter was found to flush and aspirate normally. Catheter was secured in place with 2-0 Prolene suture and a sterile dressing was applied. Catheter was packed with heparin per protocol. The neck dermatotomy was closed with Dermabond. No immediate complications were identified. Impression: Successful ultrasound guided placement of a right internal jugular tunneled central venous catheter
[2019-07-18] MEDS: IV NORMAL SALINE 1000ML BAG 1,000 ML IV SCH (16:16)
[2019-07-18] MEDS: fentaNYL HIGH DOSE PCA 55 ML IV PRN (17:25)
--- NOTE | 2019-07-18 18:00 | NUR ---
Left internal jugular IV removed by Anais Umanzor RN with pt lying flat. Pressure held for 5 minutes then gauze and tape dressings applied.
--- NOTE | 2019-07-18 19:31 | PDOC ---
PROGRESS NOTES Chief Complaint Chief Complaint Severe pancreatitis with the following surgery: Exploratory laparotomy, pancreatic necrosectomy, cholecystostomy tube placement, Gastrostomy placement with jejunal extension, tracheostomy placement (specifically 8 shiley cuffed) Acute hypoxemic respiratory failure, multifactorial. Status post tracheostomy 5 drains Acute gallstone pancreatitis./ Necrosis Acute kidney failure. improving Metabolic toxic encephalopathy. Hyperkalemia.corrected Metabolic / respiratory acidosis Hypocalcemia. Hepatitis B Hypernatremia LLL small effusion, monitor Plan: continue vent support unable to do trials due to agitation discussed with pulmonary outside solar sales consultant at bedside quite poor prognosis. reassess in the am History of Present Illness History of Present Illness 07/18/2019 Patient continues on sedation, discussed with RN and surgical assistant certified. We need to try to wean off sedation at this point since the patient remains pretty much status quo. Will discuss with pulmonary outside solar sales consultant plan of care. 07/17/2019 no changes compared to yesterday unable to wean off sedation due to agitation according to nursing staff quite the conundrum, may have to address end of life with 07/16/2019 critically stable still getting very agitated if sedation wears off no other acute events reported overnight. [id number] Patient seen and examined in the ICU He remains critically ill on the vent He is on pressure control 32/5 with 40% FiO2 His Deacon is present Chart reviewed Discussed with RN He is extremely critically ill and I'm concerned about his long-term prognosis [id number] Patient seen and examined in the ICU He remains extremely critically ill Intubated On pressure control 32 with 5 of PEEP 500 tidal volume rate of 20 and 40% FiO2 Sedated On TPN Discussed with RN Chart reviewed [id number] Patient seen and examined in the ICU his is present Discussed with RN Chart reviewed The patient actually open his eyes and tried to look at me? [id number] Patient seen and examined in the ICU He remains intubated and mechanically ventilated Extremely critically ill On TPN Versed Precedex and fentanyl Vent settings before meals/20/500/40% Discussed with campus ambassador and RN Chart reviewed [id number] Patient seen and examined in the ICU Currently getting a sponge bath Got a great view of his abdomen He has a total of 7 different drains and/or catheters Still mechanically ventilated Off of pressors Sedated Periodically can open his eyes Still very critically ill Chart reviewed Discussed with RNs [id number] Patient seen and examined in the intensive care unit He remains mechanically ventilated Before meals/20/500/40% Extremely critically ill He has 4 or 5 drains in including GJ tube Discussed with RN Chart reviewed [id number] Patient seen and examined in the ICU He is still mechanically ventilated assist-control with 40% Chart reviewed Discussed with RN He remains very critically ill [id number] Patient seen and examined in the ICU Discussed with general surgeon and he examined the patient with me Patient's is present in his good support for him Currently still intubated and on the vent He is on assist control with 40% oxygen Remains very critically ill Mr Mata is a 49 yo M admitted with severe epigastric pain beginning in the morning of admission. Ultimately diagnosed with gallstone pancreatitis. Hemodialysis catheter placed for renal failure. Arterial blood gas revealed a pH of 7.30, PaCO2 of 31, PaO2 of 75, bicarb was 15. Consulted ID, GI, General surgery, nephrology, pulmonology 06/21: Ex-lap with pancreatic necrosectomy, cholecystectomy, gastrostomy tube lpacement, tracheostomy placement. 06/22 - 06/26: Has 5 abdominal drains plus a Lobato and an NG to suction, intubated, sedated, paralyzed 06/28- 07/02: remain on micafungin, TPN. Trached on vent, sedated, 40% FiO2 07/03: His dialysis catheter and central line were removed. Ventilated via trach and sedated 07/04: Sedated on precedex. ABG reviewed, stable. Vitals stable, drains stable, still requiring ventilation on trach. Hb 7.6. TAG 1170 changed from propofol to versed for sedation 07/06 reposition G-tube. Overnight sedated. Still febrile. More comfortable on versed for sedation. Hb 7, 1u PRBC ordered. plan: Trend CBC Vitals Vitals Vital Signs Date Time Temp Pulse Resp B/P (MAP) Pulse Ox O2 Delivery O2 Flow Rate FiO2 07/18/19 19:00 100 20 110/65 (80) 100 Ventilator 07/18/19 12:00 99.5 99.5 Physical Exam Physical Exam GENERAL: Sedated, trached/vent, HEENT: Pupils equal reactive - mild icteric NECK: Trach LUNGS: Diminished aeration bases HEART: S1, S2, regular ABDOMEN: Distended, bowel sounds quiet, drains x5, wound vac in place : Lobato in place EXTREMITIES: 1+ edema, no cyanosis. SCDs bilaterally SKIN: Warm, moist. 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 INSPECTOR RAG SORTING: Sedated Left IJ 07/06- clean. General: Other (sedated) Heart: Regular rate, Normal S1, Normal S2, No murmurs, Gallops Lungs: Other (decreased) Abdomen: Soft, Other (drains in place) Extremities: No clubbing, No cyanosis, No edema, Normal pulses, No tenderness/swelling Skin: No significant lesion Labs LABS Laboratory Tests Test 07/17/19 22:56 07/18/19 06:50 07/18/19 07:03 07/18/19 13:16 Glucose (Fingerstick) 211 mg/dL (70-99) 184 mg/dL (70-99) 202 mg/dL (70-99) Sodium Level 138 mmol/L (136-145) Potassium Level 4.3 mmol/L (3.5-5.1) Chloride Level 105 mmol/L (98-107) Carbon Dioxide Level 29 mmol/L (21-32) Anion Gap 4 (6-14) Blood Urea Nitrogen 21 mg/dL (8-26) Creatinine 0.9 mg/dL (0.7-1.3) Estimated GFR (Cockcroft-Gault) 108.5 Glucose Level 194 mg/dL (70-99) Calcium Level 8.0 mg/dL (8.5-10.1) Phosphorus Level 2.6 mg/dL (2.6-4.7) Test 07/18/19 16:18 Glucose (Fingerstick) 195 mg/dL (70-99) Assessment and Plan Assessmemt and Plan Problems Medical Problems: (1) Acute pancreatitis Status: Acute (2) Nausea & vomiting Status: Acute Comment Review of Relevant I have reviewed the following items alexandra (where applicable) has been applied. Labs Laboratory Tests Test 07/17/19 00:06 07/17/19 06:00 07/17/19 06:17 07/17/19 08:00 Glucose (Fingerstick) 208 mg/dL (70-99) 229 mg/dL (70-99) White Blood Count 10.2 x10^3/uL (4.0-11.0) Red Blood Count 2.64 x10^6/uL (4.30-5.70) Hemoglobin 7.6 g/dL (13.0-17.5) Hematocrit 23.8 % (39.0-53.0) Mean Corpuscular Volume 90 fL (79-100) Mean Corpuscular Hemoglobin 29 pg (25-35) Mean Corpuscular Hemoglobin Concent 32 g/dL (31-37) Red Cell Distribution Width 15.7 % (11.5-14.5) Platelet Count 309 x10^3/uL (140-400) Sodium Level 140 mmol/L (136-145) Potassium Level 4.3 mmol/L (3.5-5.1) Chloride Level 105 mmol/L (98-107) Carbon Dioxide Level 29 mmol/L (21-32) Anion Gap 6 (6-14) Blood Urea Nitrogen 23 mg/dL (8-26) Creatinine 0.9 mg/dL (0.7-1.3) Estimated GFR (Cockcroft-Gault) 108.5 Glucose Level 224 mg/dL (70-99) Calcium Level 7.9 mg/dL (8.5-10.1) Phosphorus Level 2.3 mg/dL (2.6-4.7) Magnesium Level 1.9 mg/dL (1.8-2.4) O2 Saturation 98 % (92-99) Arterial Blood pH 7.42 (7.35-7.45) Arterial Blood pCO2 at Patient Temp 48 mmHg (35-46) Arterial Blood pO2 at Patient Temp 149 mmHg (75-108) Arterial Blood HCO3 30 mmol/L (21-28) Arterial Blood Base Excess 5 mmol/L (-3-3) FiO2 40 Test 07/17/19 12:27 07/17/19 17:39 07/17/19 22:56 07/18/19 06:50 Glucose (Fingerstick) 210 mg/dL (70-99) 194 mg/dL (70-99) 211 mg/dL (70-99) Sodium Level 138 mmol/L (136-145) Potassium Level 4.3 mmol/L (3.5-5.1) Chloride Level 105 mmol/L (98-107) Carbon Dioxide Level 29 mmol/L (21-32) Anion Gap 4 (6-14) Blood Urea Nitrogen 21 mg/dL (8-26) Creatinine 0.9 mg/dL (0.7-1.3) Estimated GFR (Cockcroft-Gault) 108.5 Glucose Level 194 mg/dL (70-99) Calcium Level 8.0 mg/dL (8.5-10.1) Phosphorus Level 2.6 mg/dL (2.6-4.7) Test 07/18/19 07:03 07/18/19 13:16 07/18/19 16:18 Glucose (Fingerstick) 184 mg/dL (70-99) 202 mg/dL (70-99) 195 mg/dL (70-99) Laboratory Tests Test 07/17/19 22:56 07/18/19 06:50 07/18/19 07:03 07/18/19 13:16 Glucose (Fingerstick) 211 mg/dL (70-99) 184 mg/dL (70-99) 202 mg/dL (70-99) Sodium Level 138 mmol/L (136-145) Potassium Level 4.3 mmol/L (3.5-5.1) Chloride Level 105 mmol/L (98-107) Carbon Dioxide Level 29 mmol/L (21-32) Anion Gap 4 (6-14) Blood Urea Nitrogen 21 mg/dL (8-26) Creatinine 0.9 mg/dL (0.7-1.3) Estimated GFR (Cockcroft-Gault) 108.5 Glucose Level 194 mg/dL (70-99) Calcium Level 8.0 mg/dL (8.5-10.1) Phosphorus Level 2.6 mg/dL (2.6-4.7) Test 07/18/19 16:18 Glucose (Fingerstick) 195 mg/dL (70-99) Microbiology 07/17/19 Blood Culture - Preliminary, Resulted NO GROWTH AFTER 1 DAY 07/11/19 Aerobic and Anaerobic Culture - Final, Complete 07/11/19 Anaerobic Culture Result 1 (CARINE) - Final, Complete 07/11/19 Aerobic Culture - Final, Complete 07/11/19 Aerobic Culture Result 1 (CARINE) - Final, Complete 07/11/19 Gram Stain - Final, Complete 07/11/19 Gram Stain Result 1 (CARINE) - Final, Complete 07/11/19 Gram Stain Result 2 (CARINE) - Final, Complete 07/04/19 - Final, Complete 07/04/19 - Final, Complete 07/04/19 - Final, Complete 07/04/19 Gram Stain Evaluation - Final, Complete 07/04/19 Sputum Culture - Final, Complete 07/04/19 Sputum Result 1 - Final, Complete 07/03/19 Aerobic Culture - Final, Complete 07/03/19 Aerobic Culture Result 1 (CARINE) - Final, Complete 07/03/19 Gram Stain - Final, Complete 07/03/19 Gram Stain Result 1 (CARINE) - Final, Complete 07/03/19 Gram Stain Result 2 (CARINE) - Final, Complete Medications Current Medications Morphine Sulfate (Morphine Sulfate) 4 mg PRN Q15MIN PRN IV/SQ PAIN GREATER THAN 3/10 Last administered on 06/11/19at 04:58; Start 06/11/19 at 04:30; Stop 06/11/19 at 16:47; Status DC Sodium Chloride 1,000 ml @ 1,000 mls/hr Q1H IV Last administered on 06/11/19at 04:34; Start 06/11/19 at 04:30; Stop 06/11/19 at 05:29; Status DC Ondansetron HCl (Zofran) 4 mg 1X ONCE IV Last administered on 06/11/19at 04:33; Start 06/11/19 at 04:30; Stop 06/11/19 at 04:33; Status DC Iohexol (Omnipaque 350 Mg/ml) 100 ml 1X ONCE IV Last administered on 06/11/19at 05:01; Start 06/11/19 at 04:45; Stop 06/11/19 at 04:46; Status DC Info (CONTRAST GIVEN -- Rx MONITORING) 1 each PRN DAILY PRN MC SEE COMMENTS; Start 06/11/19 at 04:45; Stop 06/13/19 at 04:44; Status DC Fentanyl Citrate (Fentanyl 2ml Vial) 100 mcg STK-MED ONCE .ROUTE ; Start 06/11/19 at 04:42; Stop 06/11/19 at 04:42; Status DC Fentanyl Citrate (Fentanyl 2ml Vial) 50 mcg 1X ONCE IVP Last administered on 06/11/19at 04:45; Start 06/11/19 at 05:00; Stop 06/11/19 at 05:01; Status DC Ondansetron HCl (Zofran) 4 mg PRN Q8HRS PRN IV NAUSEA/VOMITING Last administered on 06/12/19at 03:29; Start 06/11/19 at 05:45; Stop 06/12/19 at 05:44; Status DC Morphine Sulfate (Morphine Sulfate) 4 mg PRN Q2HR PRN IV PAIN Last administered on 06/11/19at 07:37; Start 06/11/19 at 05:45; Stop 06/11/19 at 11:54; Status DC Sodium Chloride 1,000 ml @ 150 mls/hr Q6H40M IV Last administered on 06/12/19at 03:28; Start 06/11/19 at 05:45; Stop 06/12/19 at 11:01; Status DC Hydromorphone HCl (Dilaudid) 0.5 mg PRN Q3HRS PRN IV PAIN Last administered on 06/11/19at 08:38; Start 06/11/19 at 05:45; Stop 06/11/19 at 09:12; Status DC Potassium Chloride/Water 100 ml @ 100 mls/hr Q1H IV Last administered on 06/11/19at 08:41; Start 06/11/19 at 06:00; Stop 06/11/19 at 07:59; Status DC Hydromorphone HCl (Dilaudid) 1 mg PRN Q3HRS PRN IV PAIN Last administered on 06/11/19at 09:29; Start 06/11/19 at 09:15; Stop 06/11/19 at 11:54; Status DC Prochlorperazine Edisylate (Compazine) 10 mg PRN Q8HRS PRN IV NAUSEA/VOMITING, 2ND CHOICE Last administered on 06/12/19at 14:59; Start 06/11/19 at 12:00 Hydromorphone HCl (Dilaudid) 1 mg PRN Q2HRS PRN IV SEVERE PAIN Last administered on 07/15/19at 07:36; Start 06/11/19 at 12:00 Pantoprazole Sodium (PROTONIX VIAL for IV PUSH) 40 mg DAILYAC IVP Last administered on 06/12/19at 08:29; Start 06/11/19 at 15:00; Stop 06/12/19 at 16:23; Status DC Lorazepam (Ativan Inj) 1 mg PRN Q6HRS PRN IVP ANXIETY / AGITATION Last administered on 07/16/19at 17:46; Start 06/11/19 at 18:15 Hydralazine HCl (Apresoline Inj) 10 mg PRN Q6HRS PRN IVP ELEVATED BP, SEE COMMENTS Last administered on 06/18/19at 09:32; Start 06/11/19 at 18:15; Stop 06/21/19 at 09:12; Status DC Nystatin (Nystop) 1 devorah PRN QID PRN TP FUNGAL RASH Last administered on 06/11/19at 23:19; Start 06/11/19 at 23:15 Sodium Chloride 1,000 ml @ 1,000 mls/hr 1X ONCE IV Last administered on 06/12/19at 05:27; Start 06/12/19 at 06:00; Stop 06/12/19 at 06:59; Status DC Sodium Chloride 1,000 ml @ 1,000 mls/hr 1X ONCE IV Last administered on 06/12/19at 05:25; Start 06/12/19 at 05:00; Stop 06/12/19 at 05:59; Status DC Sodium Chloride 1,000 ml @ 200 mls/hr Q5H IV Last administered on 06/12/19at 06:36; Start 06/12/19 at 07:00; Stop 06/12/19 at 11:01; Status DC Sodium Bicarbonate 50 meq/Sodium Chloride 1,050 ml @ 150 mls/hr Q7H IV Last administered on 06/13/19at 04:16; Start 06/12/19 at 11:00; Stop 06/13/19 at 14:48; Status DC Amino Acids/ Glycerin/ Electrolytes 1,000 ml @ 80 mls/hr [id number] IV ; Start 06/12/19 at 10:00; Status UNV Amino Acids/ Electrolytes/ Dextrose 1,000 ml @ 80 mls/hr [id number] IV ; Start 06/12/19 at 10:15; Stop 06/18/19 at 13:50; Status DC Piperacillin Sod/ Tazobactam Sod (Zosyn Per Pharmacy) 1 each PRN DAILY PRN MC SEE COMMENTS; Start 06/12/19 at 13:15; Stop 06/12/19 at 19:16; Status DC Piperacillin Sod/ Tazobactam Sod 2.25 gm/Sodium Chloride 50 ml @ 100 mls/hr Q6HRS IV Last administered on 06/12/19at 13:48; Start 06/12/19 at 13:30; Stop 06/12/19 at 19:15; Status DC Sodium Bicarbonate (Sodium Bicarb Adult 8.4% Syr) 50 meq 1X ONCE IV Last administered on 06/12/19at 16:12; Start 06/12/19 at 16:00; Stop 06/12/19 at 16:01; Status DC Calcium Gluconate 1000 mg/Sodium Chloride 110 ml @ 220 mls/hr 1X ONCE IV Last administered on 06/12/19at 16:13; Start 06/12/19 at 16:00; Stop 06/12/19 at 16:29; Status DC Dextrose (Dextrose 50%-Water Syringe) 25 gm 1X ONCE IV Last administered on 06/12/19at 16:13; Start 06/12/19 at 16:00; Stop 06/12/19 at 16:01; Status DC Insulin Human Regular (HumuLIN R VIAL) 10 unit 1X ONCE IV Last administered on 06/12/19at 16:14; Start 06/12/19 at 16:00; Stop 06/12/19 at 16:01; Status DC Furosemide (Lasix) 40 mg 1X ONCE IVP Last administered on 06/12/19at 16:13; Start 06/12/19 at 16:00; Stop 06/12/19 at 16:01; Status DC Pantoprazole Sodium (PROTONIX VIAL for IV PUSH) 40 mg [id number] IVP Last administered on 06/13/19at 06:21; Start 06/12/19 at 18:00; Stop 06/13/19 at 18:49; Status DC Meropenem 500 mg/ Sodium Chloride 50 ml @ 100 mls/hr Q12HR IV Last administered on 06/17/19at 20:59; Start 06/12/19 at 21:00; Stop 06/18/19 at 07:26; Status DC Calcium Gluconate 1000 mg/Sodium Chloride 110 ml @ 220 mls/hr 1X ONCE IV Last administered on 06/12/19at 20:35; Start 06/12/19 at 19:15; Stop 06/12/19 at 19:44; Status DC Lidocaine HCl (Buffered Lidocaine 1%) 3 ml STK-MED ONCE .ROUTE ; Start 06/13/19 at 08:47; Stop 06/13/19 at 08:47; Status DC Lidocaine HCl (Buffered Lidocaine 1%) 6 ml 1X ONCE INJ Last administered on 06/13/19at 09:23; Start 06/13/19 at 09:30; Stop 06/13/19 at 09:31; Status DC Insulin Human Lispro (HumaLOG) 0-7 UNITS TIDWMEALS SQ Last administered on at 12:14; Start 06/13/19 at 12:00; Stop 06/14/19 at 23:29; Status DC Dextrose (Dextrose 50%-Water Syringe) 12.5 gm PRN Q15MIN PRN IV SEE COMMENTS; Start 06/13/19 at 11:15; Stop 06/14/19 at 23:29; Status DC Insulin Human Regular 100 unit/ Sodium Chloride 101 ml @ 0 mls/hr CONT PRN IV SEE I/O RECORD Last administered on 06/13/19at 15:03; Start 06/13/19 at 14:15; Stop 06/21/19 at 12:37; Status DC Sodium Chloride 1,000 ml @ 1,000 mls/hr Q1H PRN IV hypotension; Start 06/13/19 at 14:00; Stop 06/13/19 at 19:59; Status DC Sodium Chloride 1,000 ml @ 400 mls/hr Q2H30M PRN IV PATENCY; Start 06/13/19 at 14:00; Stop 06/14/19 at 01:59; Status DC Info (PHARMACY MONITORING -- do not chart) 1 each PRN DAILY PRN MC SEE COMMENTS; Start 06/13/19 at 14:45; Stop 06/13/19 at 14:51; Status DC Info (PHARMACY MONITORING -- do not chart) 1 each PRN DAILY PRN MC SEE COMMENTS; Start 06/13/19 at 14:45; Stop 06/27/19 at 12:33; Status DC Pantoprazole Sodium (PROTONIX VIAL for IV PUSH) 40 mg [id number] IVP Last administered on 07/18/19at 16:15; Start 06/13/19 at 21:00 Dexmedetomidine HCl 400 mcg/ Sodium Chloride 100 ml @ 0 mls/hr CONT PRN IV PER PROTOCOL Last administered on 06/21/19at 05:52; Start 06/13/19 at 19:00; Stop 06/21/19 at 19:39; Status DC Sodium Chloride 500 ml @ 500 mls/hr 1X PRN PRN IV SEE COMMENTS; Start 06/13/19 at 19:00; Stop 07/05/19 at 08:01; Status DC Atropine Sulfate (ATROPINE 0.5mg SYRINGE) 0.5 mg PRN Q5MIN PRN IV SEE COMMENTS; Start 06/13/19 at 19:00; Stop 06/27/19 at 12:28; Status DC Sodium Chloride 1,000 ml @ 1,000 mls/hr Q1H PRN IV hypotension; Start 06/14/19 at 08:55; Stop 06/14/19 at 14:54; Status DC Albumin Human 200 ml @ 200 mls/hr 1X PRN PRN IV Hypotension Last administered on 06/14/19at 09:40; Start 06/14/19 at 09:00; Stop 06/14/19 at 14:59; Status DC Sodium Chloride 1,000 ml @ 400 mls/hr Q2H30M PRN IV PATENCY; Start 06/14/19 at 08:55; Stop 06/14/19 at 20:54; Status DC Info (PHARMACY MONITORING -- do not chart) 1 each PRN DAILY PRN MC SEE COMMENTS; Start 06/14/19 at 09:00; Stop 06/14/19 at 09:06; Status DC Info (PHARMACY MONITORING -- do not chart) 1 each PRN DAILY PRN MC SEE COMMENTS; Start 06/14/19 at 09:00; Stop 06/14/19 at 09:06; Status DC Calcium Chloride 2000 mg/Sodium Chloride 120 ml @ 240 mls/hr PRN QID PRN IV for CALCIUM < 5.8 Last administered on 06/15/19at 08:32; Start 06/14/19 at 10:15; Stop 06/15/19 at 09:58; Status DC Magnesium Sulfate 50 ml @ 25 mls/hr PRN DAILY PRN IV for Mag < 1.7 on am labs Last administered on 07/15/19at 08:52; Start 06/14/19 at 10:30 Norepinephrine Bitartrate 8 mg/ Dextrose 258 ml @ 20.027 mls/ hr CONT PRN IV PER PROTOCOL Last administered on 06/14/19at 10:31; Start 06/14/19 at 10:30 Succinylcholine Chloride (Anectine) 200 mg STK-MED ONCE .ROUTE ; Start 06/14/19 at 12:22; Stop 06/14/19 at 12:23; Status DC Etomidate (Amidate) 20 mg STK-MED ONCE IV ; Start 06/14/19 at 12:22; Stop 06/14/19 at 12:23; Status DC Fentanyl Citrate 30 ml @ 0 mls/hr CONT PRN IV SEE PROTOCOL Last administered on 06/19/19at 08:10; Start 06/14/19 at 12:45; Stop 06/19/19 at 11:00; Status DC Chlorhexidine Gluconate (Peridex) 15 ml BID MM Last administered on 06/30/19at 20:47; Start 06/14/19 at 21:00; Stop 07/01/19 at 16:34; Status DC Midazolam HCl 50 mg/Sodium Chloride 50 ml @ 0 mls/hr CONT PRN IV SEE PROTOCOL Last administered on 07/13/19at 10:19; Start 06/14/19 at 12:45; Stop 07/13/19 at 14:59; Status DC Midazolam HCl (Versed) 5 mg STK-MED ONCE .ROUTE ; Start 06/14/19 at 12:48; Stop 06/14/19 at 12:48; Status DC Fentanyl Citrate (Fentanyl 2ml Vial) 100 mcg STK-MED ONCE .ROUTE ; Start 06/14/19 at 12:48; Stop 06/14/19 at 12:48; Status DC Midazolam HCl (Versed) 5 mg 1X ONCE IV Last administered on 06/14/19at 12:59; Start 06/14/19 at 13:00; Stop 06/14/19 at 13:01; Status DC Fentanyl Citrate (Fentanyl 2ml Vial) 100 mcg 1X ONCE IM Last administered on 06/14/19at 12:58; Start 06/14/19 at 13:00; Stop 06/14/19 at 13:01; Status DC Succinylcholine Chloride (Anectine) 200 mg 1X ONCE IV Last administered on 06/14/19at 12:59; Start 06/14/19 at 13:00; Stop 06/14/19 at 13:01; Status DC Etomidate (Amidate) 14 mg 1X ONCE IV Last administered on 06/14/19at 12:59; Start 06/14/19 at 13:00; Stop 06/14/19 at 13:01; Status DC Acetaminophen (Tylenol Supp) 650 mg PRN Q6HRS PRN [place] MILD PAIN / TEMP Last administered on 07/17/19at 08:26; Start 06/14/19 at 20:00 Linezolid/Dextrose 300 ml @ 300 mls/hr Q12HR IV Last administered on 07/03/19at 08:34; Start 06/14/19 at 21:00; Stop 07/03/19 at 09:09; Status DC Insulin Human Lispro (HumaLOG) 0-7 UNITS TIDWMEALS SQ ; Start 06/15/19 at 08:00; Stop 06/15/19 at 00:03; Status DC Dextrose (Dextrose 50%-Water Syringe) 12.5 gm PRN Q15MIN PRN IV SEE COMMENTS; Start 06/14/19 at 23:30; Stop 07/03/19 at 10:41; Status DC Insulin Human Lispro (HumaLOG) 0-7 UNITS Q4HRS SQ Last administered on 06/23/19at 08:05; Start 06/15/19 at 00:15; Stop 07/01/19 at 16:41; Status DC Calcium Gluconate 24715 mg/Sodium Chloride 494 ml @ 4.051 mls/ hr CONT PRN IV SYMPTOMATIC HYPOCALCEMIA; Start 06/15/19 at 09:30; Stop 06/15/19 at 09:23; Status DC Calcium Gluconate 5000 mg/Sodium Chloride 260 ml @ 5.543 mls/ hr CONT PRN IV SYMPTOMATIC HYPOCALCEMIA; Start 06/15/19 at 09:30; Stop 06/15/19 at 09:26; Status DC Calcium Gluconate 5000 mg/Sodium Chloride 260 ml @ 5.543 mls/ hr CONT PRN IV SYMPTOMATIC HYPOCALCEMIA; Start 06/15/19 at 09:30; Stop 06/15/19 at 09:29; Status DC Calcium Gluconate 5000 mg/Sodium Chloride 250 ml @ 28.782 mls/ hr CONT PRN IV SYMPTOMATIC HYPOCALCEMIA Last administered on 06/18/19at 06:12; Start 06/15/19 at 09:30; Stop 06/18/19 at 13:50; Status DC Lidocaine HCl (Lidocaine Pf 2% Vial) 5 ml STK-MED ONCE .ROUTE ; Start 06/14/19 at 12:00; Stop 06/17/19 at 10:37; Status DC Meropenem 500 mg/ Sodium Chloride 50 ml @ 100 mls/hr Q6HRS IV Last administered on 07/06/19at 12:12; Start 06/18/19 at 07:30; Stop 07/06/19 at 15:00; Status DC Nicardipine HCl 50 mg/Sodium Chloride 250 ml @ 25 mls/hr CONT PRN IV SEE I/O RECORD; Start 06/18/19 at 11:45; Stop 07/13/19 at 15:06; Status DC Metoprolol Tartrate (Lopressor Vial) 5 mg 1X ONCE IVP ; Start 06/18/19 at 12:15; Stop 06/18/19 at 12:16; Status DC Fentanyl Citrate (Fentanyl 600 Mcg/30 ml DIRECTOR OF QUANTITATIVE RESEARCH) 600 mcg STK-MED ONCE IV ; Start 06/15/19 at 05:30; Stop 06/18/19 at 12:07; Status DC Enoxaparin Sodium (Lovenox 40mg Syringe) 40 mg Q24H SQ Last administered on 06/21/19at 23:02; Start 06/18/19 at 22:30; Stop 06/22/19 at 11:07; Status DC Fentanyl Citrate 55 ml @ 1.98 mls/hr CONT PRN IV SEE PROTOCOL; Start 06/19/19 at 08:15; Status Cancel Info (Tpn Per Pharmacy) 1 each PRN DAILY PRN MC SEE COMMENTS Last administered on 07/18/19at 13:34; Start 06/19/19 at 11:15 Hydralazine HCl (Apresoline Inj) 10 mg PRN Q4HRS PRN IVP ELEVATED BP, 1st choice Last administered on 07/15/19at 07:33; Start 06/19/19 at 11:45 Labetalol HCl (Normodyne Iv Push) 20 mg PRN Q2HR PRN IVP HYPERTENSION, 2nd choice Last administered on 06/26/19at 14:44; Start 06/19/19 at 11:45 Potassium Phosphate 13.6 mmol/Magnesium Sulfate 10 meq/ Calcium Gluconate 20 meq/ Multivitamins 10 ml/Chromium/ Copper/Manganese/ Seleni/Zn 0.5 ml/ Total Parenteral Nutrition/Amino Acids/Dextrose/ Fat Emulsion Intravenous 1,920 ml @ 80 mls/hr TPN CONT IV Last administered on 06/19/19 21:31; Start 06/19/19 at 22:00; Stop 06/20/19 at 21:59; Status DC Fentanyl Citrate 30 ml @ 0 mls/hr CONT PRN IV SEE PROTOCOL Last administered on 06/24/19at 09:31; Start 06/19/19 at 18:00; Stop 06/24/19 at 11:38; Status DC Micafungin Sodium 100 mg/Dextrose 100 ml @ 100 mls/hr Q24H IV Last administered on 07/07/19at 08:19; Start 06/20/19 at 09:00; Stop 07/07/19 at 09:51; Status DC Potassium Phosphate 13.6 mmol/Calcium Gluconate 20 meq/ Multivitamins 10 ml/C hromium/ Copper/Manganese/ Seleni/Zn 0.5 ml/ Insulin Human Regular 10 unit/ Total Parenteral Nutrition/Amino Acids/Dextrose/ Fat Emulsion Intravenous 1,920 ml @ 80 mls/hr TPN CONT IV Last administered on 06/20/19at 21:57; Start 06/20/19 at 22:00; Stop 06/21/19 at 21:59; Status DC Insulin Glargine (Lantus Syringe) 15 unit QHS SQ Last administered on 06/20/19at 20:46; Start 06/20/19 at 21:00; Stop 06/21/19 at 12:32; Status DC Insulin Glargine (Lantus Syringe) 20 unit QHS SQ Last administered on 07/02/19at 20:46; Start 06/21/19 at 21:00; Stop 07/03/19 at 10:39; Status DC Potassium Phosphate 13.6 mmol/Calcium Gluconate 20 meq/ Multivitamins 10 ml/Chromium/ Copper/Manganese/ Seleni/Zn 0.5 ml/ Insulin Human Regular 10 unit/ Total Parenteral Nutrition/Amino Acids/Dextrose/ Fat Emulsion Intravenous 1,920 ml @ 80 mls/hr TPN CONT IV Last administered on 06/21/19 21:31; Start 06/21/19 at 22:00; Stop 06/22/19 at 21:59; Status DC Dextrose 1,000 ml @ 75 mls/hr [id number] IV Last administered on 06/27/19at 01:32; Start 06/22/19 at 07:00; Stop 06/27/19 at 12:43; Status DC Albuterol Sulfate (Ventolin Neb Soln) 2.5 mg RTQID NEB Last administered on 07/18/19at 15:14; Start 06/22/19 at 08:00 Iohexol (Omnipaque 240 Mg/ml) 30 ml 1X ONCE PO ; Start 06/22/19 at 08:00; Stop 06/22/19 at 08:05; Status DC Iohexol (Omnipaque 300 Mg/ml) 75 ml 1X ONCE IV ; Start 06/22/19 at 08:00; Stop 06/22/19 at 08:01; Status Cancel Info (CONTRAST GIVEN -- Rx MONITORING) 1 each PRN DAILY PRN MC SEE COMMENTS; Start 06/22/19 at 08:15; Stop 06/24/19 at 08:14; Status DC Cefoxitin Sodium (Mefoxin) 2 gm 1X PREOP IVP ; Start 06/22/19 at 11:00; Stop 06/22/19 at 11:16; Status DC Cefoxitin Sodium (Mefoxin) 2 gm 1X PREOP ONCE IVP Last administered on 06/22/19at 11:37; Start 06/22/19 at 11:30; Stop 06/22/19 at 11:31; Status DC Rocuronium [place] (Zemuron) 50 mg STK-MED ONCE .ROUTE ; Start 06/22/19 at 11:42; Stop 06/22/19 at 11:42; Status DC Propofol 20 ml @ As Directed STK-MED ONCE IV ; Start 06/22/19 at 11:42; Stop 06/22/19 at 11:43; Status DC Dexamethasone Sodium Phosphate (Decadron) 4 mg STK-MED ONCE .ROUTE ; Start 06/22/19 at 11:45; Stop 06/22/19 at 11:45; Status DC Ondansetron HCl (Zofran) 4 mg STK-MED ONCE .ROUTE ; Start 06/22/19 at 11:45; Stop 06/22/19 at 11:45; Status DC Potassium Phosphate 13.6 mmol/Magnesium Sulfate 5 meq/ Calcium Gluconate 20 meq/ Multivitamins 10 ml/Chromium/ Copper/Manganese/ Seleni/Zn 0.5 ml/ Total Parenteral Nutrition/Amino Acids/Dextrose/ Fat Emulsion Intravenous 1,920 ml @ 80 mls/hr TPN CONT IV Last administered on 06/22/19at 22:14; Start 06/22/19 at 22:00; Stop 06/23/19 at 21:59; Status DC Rocuronium [place] (Zemuron) 100 mg STK-MED ONCE .ROUTE ; Start 06/22/19 at 13:05; Stop 06/22/19 at 13:06; Status DC Cellulose (Surgicel Hemostat 4x8) 1 each STK-MED ONCE .ROUTE Last administered on 06/22/19at 12:46; Start 06/22/19 at 13:14; Stop 06/22/19 at 13:14; Status DC Albumin Human 500 ml @ As Directed STK-MED ONCE IV ; Start 06/22/19 at 13:25; Stop 06/22/19 at 13:25; Status DC Sevoflurane (Ultane) 90 ml STK-MED ONCE IH ; Start 06/22/19 at 13:53; Stop 06/22/19 at 13:53; Status DC Cellulose (Surgicel Hemostat 4x8) 1 each STK-MED ONCE TP Last administered on 06/22/19at 12:46; Start 06/22/19 at 12:46; Stop 06/22/19 at 14:25; Status DC Cellulose (Surgicel Hemostat 4x8) 1 each STK-MED ONCE TP Last administered on 06/22/19at 12:46; Start 06/22/19 at 12:46; Stop 06/22/19 at 14:25; Status DC Rocuronium [place] (Zemuron) 50 mg STK-MED ONCE .ROUTE ; Start 06/22/19 at 14:52; Stop 06/22/19 at 14:52; Status DC Vecuronium [place] 50 mg/ Miscellaneous 50 ml @ 4.925 mls/ hr CONT PRN IV SEE PROTOCOL Last administered on 06/25/19at 05:19; Start 06/22/19 at 15:00 Enoxaparin Sodium (Lovenox 40mg Syringe) 40 mg Q24H SQ Last administered on 07/18/19at 07:08; Start 06/23/19 at 06:00 Sodium Chloride (Normal Saline Flush) 3 ml QSHIFT PRN IV AFTER MEDS AND BLOOD DRAWS; Start 06/22/19 at 15:45 Ringer's Solution 1,000 ml @ 100 mls/hr Q10H IV Last administered on 06/23/19at 22:06; Start 06/22/19 at 15:39; Stop 06/24/19 at 17:46; Status DC Naloxone HCl (Narcan) 0.4 mg PRN Q2MIN PRN IV SEE INSTRUCTIONS Last administered on 07/15/19at 07:58; Start 06/22/19 at 15:45 Sodium Chloride 1,000 ml @ 25 mls/hr Q24H IV Last administered on 07/18/19at 16:16; Start 06/22/19 at 15:39 Morphine Sulfate (Morphine Sulfate) 1 mg PRN Q1HR PRN IV MODERATE PAIN Last administered on 07/15/19at 08:48; Start 06/22/19 at 15:45 Ondansetron HCl (Zofran) 4 mg PRN Q6HRS PRN IVP NAUESA, 1ST CHOICE; Start 06/21 at 15:45 Calcium Gluconate (Calcium Gluconate) 1,000 mg 1X ONCE IVP ; Start 06/22/19 at 19:45; Stop 06/22/19 at 20:15; Status DC Sodium Bicarbonate (Sodium Bicarb Adult 8.4% Syr) 50 meq 1X ONCE IV Last administered on 06/22/19at 20:37; Start 06/22/19 at 19:45; Stop 06/22/19 at 19:57; Status DC Dextrose (Dextrose 50%-Water Syringe) 25 gm 1X ONCE IV Last administered on 06/22/19at 20:37; Start 06/22/19 at 19:45; Stop 06/22/19 at 19:57; Status DC Insulin Human Regular (HumuLIN R VIAL) 10 unit 1X ONCE IV Last administered on 06/22/19at 20:45; Start 06/22/19 at 19:45; Stop 06/22/19 at 19:57; Status DC Calcium Gluconate 1000 mg/Sodium Chloride 110 ml @ 220 mls/hr 1X ONCE IV Last administered on 06/22/19at 20:36; Start 06/22/19 at 20:15; Stop 06/22/19 at 20:44; Status DC Insulin Human Regular 100 unit/ Sodium Chloride 101 ml @ 0 mls/hr CONT PRN IV SEE I/O RECORD Last administered on 07/02/19at 18:55; Start 06/23/19 at 12:15; Stop 07/03/19 at 10:39; Status DC Sodium Phosphate 10 mmol/Magnesium Sulfate 5 meq/ Calcium Gluconate 15 meq/ Multivitamins 10 ml/Chromium/ Copper/Manganese/ Seleni/Zn 0.5 ml/ Insulin Human Regular 10 unit/ Total Parenteral Nutrition/Amino Acids/Dextrose/ Fat Emulsion Intravenous 1,920 ml @ 80 mls/hr TPN CONT IV Last administered on 06/23/19at 22:20; Start 06/23/19 at 22:00; Stop 06/24/19 at 21:59; Status DC Fentanyl Citrate 55 ml @ 1.98 mls/hr CONT PRN IV SEE PROTOCOL Last administered on 07/18/19at 17:25; Start 06/24/19 at 11:45 Sodium Phosphate 10 mmol/Magnesium Sulfate 5 meq/ Calcium Gluconate 15 meq/ Multivitamins 10 ml/Chromium/ Copper/Manganese/ Seleni/Zn 0.5 ml/ Total Parenteral Nutrition/Amino Acids/Dextrose/ Fat Emulsion Intravenous 1,920 ml @ 80 mls/hr TPN CONT IV Last administered on 06/24/19at 22:26; Start 06/24/19 at 22:00; Stop 06/25/19 at 21:59; Status DC Sodium Phosphate 10 mmol/Magnesium Sulfate 5 meq/ Calcium Gluconate 15 meq/ Multivitamins 10 ml/Chromium/ Copper/Manganese/ Seleni/Zn 0.5 ml/ Total Parenteral Nutrition/Amino Acids/Dextrose/ Fat Emulsion Intravenous 1,920 ml @ 80 mls/hr TPN CONT IV Last administered on 06/25/19at 22:27; Start 06/25/19 at 22:00; Stop 06/26/19 at 21:59; Status DC Sodium Phosphate 10 mmol/Magnesium Sulfate 5 meq/ Calcium Gluconate 15 meq/ Multivitamins 10 ml/Chromium/ Copper/Manganese/ Seleni/Zn 0.5 ml/ Total Parenteral Nutrition/Amino Acids/Dextrose/ Fat Emulsion Intravenous 1,920 ml @ 80 mls/hr TPN CONT IV Last administered on 06/26/19at 21:57; Start 06/26/19 at 22:00; Stop 06/27/19 at 21:59; Status DC Furosemide (Lasix) 60 mg 1X ONCE IVP Last administered on 06/26/19at 12:22; Start 06/26/19 at 12:30; Stop 06/26/19 at 12:31; Status DC Dexmedetomidine HCl 400 mcg/ Sodium Chloride 100 ml @ 0 mls/hr CONT PRN IV SEDATION ON VENT Last administered on 07/18/19at 17:04; Start 06/26/19 at 19:00 Sodium Chloride 500 ml @ 500 mls/hr 1X PRN PRN IV SEE COMMENTS; Start 06/26/19 at 19:00 Atropine Sulfate (ATROPINE 0.5mg SYRINGE) 0.5 mg PRN Q5MIN PRN IV SEE COMMENTS; Start 06/26/19 at 19:00 Sodium Bicarbonate (Sodium Bicarb Adult 8.4% Syr) 50 meq 1X ONCE IV ; Start 06/26/19 at 19:30; Stop 06/26/19 at 19:23; Status DC Furosemide (Lasix) 40 mg DAILY IVP Last administered on 07/18/19at 11:11; Start 06/27/19 at 12:00 Propofol 100 ml @ As Directed STK-MED ONCE IV ; Start 06/27/19 at 11:51; Stop 06/27/19 at 11:51; Status DC Propofol 100 ml @ 6.588 mls/ hr CONT PRN IV SEE I/O RECORD Last administered on 07/18/19at 16:15; Start 06/27/19 at 12:00 Sodium Phosphate 10 mmol/Magnesium Sulfate 5 meq/ Calcium Gluconate 15 meq/ Multivitamins 10 ml/Chromium/ Copper/Manganese/ Seleni/Zn 0.5 ml/ Total Parenteral Nutrition/Amino Acids/Dextrose/ Fat Emulsion Intravenous 1,920 ml @ 80 mls/hr TPN CONT IV ; Start 06/27/19 at 22:00; Stop 06/27/19 at 12:55; Status DC Potassium Phosphate 10 mmol/ Magnesium Sulfate 5 meq/Calcium Gluconate 15 meq/ Multivitamins 10 ml/Chromium/ Copper/Manganese/ Seleni/Zn 0.5 ml/ Total Parenteral Nutrition/Amino Acids/Dextrose/ Fat Emulsion Intravenous 1,920 ml @ 80 mls/hr TPN CONT IV Last administered on 06/27/19at 21:38; Start 06/27/19 at 22:00; Stop 06/28/19 at 21:59; Status DC Potassium Chloride/Water 100 ml @ 50 mls/hr 1X ONCE IV Last administered on 06/28/19at 15:00; Start 06/28/19 at 15:00; Stop 06/28/19 at 16:59; Status DC Potassium Phosphate 10 mmol/ Magnesium Sulfate 5 meq/Calcium Gluconate 15 meq/ Multivitamins 10 ml/Chromium/ Copper/Manganese/ Seleni/Zn 0.5 ml/ Potassium Acetate 20 meq/Total Parenteral Nutrition/Amino Acids/Dextrose/ Fat Emulsion Intravenous 1,920 ml @ 80 mls/hr TPN CONT IV Last administered on 06/28/19at 22:14; Start 06/28/19 at 22:00; Stop 06/29/19 at 21:59; Status DC Potassium Chloride/Water 100 ml @ 50 mls/hr 1X ONCE IV Last administered on 06/29/19at 08:57; Start 06/29/19 at 09:00; Stop 06/29/19 at 10:59; Status DC Potassium Phosphate 10 mmol/ Magnesium Sulfate 5 meq/Calcium Gluconate 15 meq/ Multivitamins 10 ml/Chromium/ Copper/Manganese/ Seleni/Zn 0.5 ml/ Potassium Acetate 20 meq/Total Parenteral Nutrition/Amino Acids/Dextrose/ Fat Emulsion Intravenous 1,920 ml @ 80 mls/hr TPN CONT IV Last administered on 06/29/19at 21:32; Start 06/29/19 at 22:00; Stop 06/30/19 at 21:59; Status DC Potassium Phosphate 10 mmol/ Magnesium Sulfate 5 meq/Calcium Gluconate 15 meq/ Multivitamins 10 ml/Chromium/ Copper/Manganese/ Seleni/Zn 0.5 ml/ Potassium Acetate 20 meq/Total Parenteral Nutrition/Amino Acids/Dextrose 1,920 ml @ 80 mls/hr TPN CONT IV Last administered on 06/30/19at 21:38; Start 06/30/19 at 22:00; Stop 07/01/19 at 21:59; Status DC Potassium Phosphate 10 mmol/ Magnesium Sulfate 5 meq/Calcium Gluconate 15 meq/ M ultivitamins 10 ml/Chromium/ Copper/Manganese/ Seleni/Zn 0.5 ml/ Potassium Acetate 10 meq/Total Parenteral Nutrition/Amino Acids/Dextrose 1,920 ml @ 80 mls/hr TPN CONT IV Last administered on 07/01/19at 21:30; Start 07/01/19 at 22:00; Stop 07/02/19 at 21:59; Status DC Potassium Phosphate 10 mmol/ Magnesium Sulfate 5 meq/Calcium Gluconate 15 meq/ Multivitamins 10 ml/Chromium/ Copper/Manganese/ Seleni/Zn 0.5 ml/ Potassium Acetate 10 meq/Total Parenteral Nutrition/Amino Acids/Dextrose 1,920 ml @ 80 mls/hr TPN CONT IV Last administered on 07/02/19at 21:36; Start 07/02/19 at 22:00; Stop 07/03/19 at 21:59; Status DC Daptomycin 520 mg/ Sodium Chloride 50 ml @ 100 mls/hr Q24H IV Last administered on 07/13/19at 09:57; Start 07/03/19 at 10:00; Stop 07/14/19 at 09:26; Status DC Insulin Glargine (Lantus Syringe) 30 unit BID SQ Last administered on 07/18/19at 11:13; Start 07/03/19 at 11:00 Insulin Human Lispro (HumaLOG) 0-9 UNITS Q6HRS SQ Last administered on 07/18/19at 16:20; Start 07/03/19 at 12:00 Dextrose (Dextrose 50%-Water Syringe) 12.5 gm PRN Q15MIN PRN IV SEE COMMENTS; Start 07/03/19 at 10:30 Potassium Acetate 10 meq/Potassium Phosphate 10 mmol/ Magnesium Sulfate 5 meq/Calcium Gluconate 15 meq/ Multivitamins 10 ml/Chromium/ Copper/Manganese/ Seleni/Zn 0.5 ml/ Total Parenteral Nutrition/Amino Acids/Dextrose 1,920 ml @ 80 mls/hr TPN CONT IV Last administered on 07/03/19at 21:26; Start 07/03/19 at 22:00; Stop 07/04/19 at 21:59; Status DC Linezolid/Dextrose 300 ml @ 300 mls/hr Q12HR IV Last administered on 07/18/19at 12:58; Start 07/04/19 at 09:00 Potassium Acetate 10 meq/Potassium Phosphate 10 mmol/ Magnesium Sulfate 5 meq/Calcium Gluconate 15 meq/ Multivitamins 10 ml/Chromium/ Copper/Manganese/ Seleni/Zn 0.5 ml/ Total Parenteral Nutrition/Amino Acids/Dextrose 1,920 ml @ 80 mls/hr TPN CONT IV Last administered on 07/04/19at 21:13; Start 07/04/19 at 22:00; Stop 07/05/19 at 21:59; Status DC Lidocaine HCl (Buffered Lidocaine 1%) 3 ml STK-MED ONCE .ROUTE ; Start 07/04/19 at 14:23; Stop 07/04/19 at 14:23; Status DC Iohexol (Omnipaque 240 Mg/ml) 50 ml STK-MED ONCE .ROUTE ; Start 07/04/19 at 14:23; Stop 07/04/19 at 14:24; Status DC Lidocaine HCl (Buffered Lidocaine 1%) 3 ml 1X ONCE INJ Last administered on 07/04/19at 15:34; Start 07/04/19 at 14:30; Stop 07/04/19 at 14:31; Status DC Iohexol (Omnipaque 240 Mg/ml) 50 ml 1X ONCE IJ Last administered on 07/04/19at 15:33; Start 07/04/19 at 14:30; Stop 07/04/19 at 14:31; Status DC Info (CONTRAST GIVEN -- Rx MONITORING) 1 each PRN DAILY PRN MC SEE COMMENTS; Start 07/04/19 at 14:30; Stop 07/06/19 at 14:29; Status DC Potassium Acetate 10 meq/Potassium Phosphate 10 mmol/ Magnesium Sulfate 5 meq/ Calcium Gluconate 15 meq/ Multivitamins 10 ml/Chromium/ Copper/Manganese/ Seleni/Zn 0.5 ml/ Total Parenteral Nutrition/Amino Acids/Dextrose 1,920 ml @ 80 mls/hr TPN CONT IV Last administered on 07/05/19at 20:59; Start 07/05/19 at 22:00; Stop 07/06/19 at 21:59; Status DC Potassium Acetate 10 meq/Potassium Phosphate 10 mmol/ Magnesium Sulfate 5 meq/Calcium Gluconate 15 meq/ Multivitamins 10 ml/Chromium/ Copper/Manganese/ Seleni/Zn 0.5 ml/ Total Parenteral Nutrition/Amino Acids/Dextrose 1,920 ml @ 80 mls/hr TPN CONT IV Last administered on 07/06/19at 22:51; Start 07/06/19 at 22:00; Stop 07/07/19 at 21:59; Status DC Cefepime HCl (Maxipime) 2 gm Q8HRS IVP Last administered on 07/18/19at 13:09; Start 07/06/19 at 22:00 Metronidazole 100 ml @ 100 mls/hr Q8HRS IV Last administered on 07/18/19at 14:00; Start 07/06/19 at 22:00 Lidocaine HCl (Buffered Lidocaine 1%) 3 ml STK-MED ONCE .ROUTE ; Start 07/07/19 at 10:07; Stop 07/07/19 at 10:07; Status DC Iohexol (Omnipaque 240 Mg/ml) 50 ml STK-MED ONCE .ROUTE ; Start 07/07/19 at 10:07; Stop 07/07/19 at 10:07; Status DC Potassium Acetate 10 meq/Potassium Phosphate 10 mmol/ Magnesium Sulfate 10 m eq/Calcium Gluconate 10 meq/ Multivitamins 10 ml/Chromium/ Copper/Manganese/ Seleni/Zn 0.5 ml/ Total Parenteral Nutrition/Amino Acids/Dextrose 1,920 ml @ 80 mls/hr TPN CONT IV Last administered on 07/07/19at 21:50; Start 07/07/19 at 22:00; Stop 07/08/19 at 21:59; Status DC Lidocaine HCl (Buffered Lidocaine 1%) 4 ml 1X ONCE IJ Last administered on 07/07/19at 12:50; Start 07/07/19 at 14:00; Stop 07/07/19 at 14:01; Status DC Iohexol (Omnipaque 240 Mg/ml) 10 ml 1X ONCE IJ Last administered on 07/07/19at 12:50; Start 07/07/19 at 14:00; Stop 07/07/19 at 14:01; Status DC Multi-Ingred Cream/Lotion/Oil/ Oint (Artificial Tears Eye Ointment) 1 devorah PRN Q1HR PRN OU DRY EYE; Start 07/08/19 at 10:30 Potassium Acetate 10 meq/Potassium Phosphate 10 mmol/ Magnesium Sulfate 10 meq/Calcium Gluconate 10 meq/ Multivitamins 10 ml/Chromium/ Copper/Manganese/ Seleni/Zn 0.5 ml/ Total Parenteral Nutrition/Amino Acids/Dextrose/ Fat Emulsion Intravenous 1,635 ml @ 68.125 mls/ hr TPN CONT IV Last administered on 07/08/19at 21:47; Start 07/08/19 at 22:00; Stop 07/09/19 at 21:59; Status DC Potassium Acetate 15 meq/Potassium Phosphate 15 mmol/ Magnesium Sulfate 10 meq/Calcium Gluconate 10 meq/ Multivitamins 10 ml/Chromium/ Copper/Manganese/ Seleni/Zn 0.5 ml/ Total Parenteral Nutrition/Amino Acids/Dextrose/ Fat Emulsion Intravenous 1,920 ml @ 80 mls/hr TPN CONT IV Last administered on 07/09/19at 21:39; Start 07/09/19 at 22:00; Stop 07/10/19 at 21:59; Status DC Potassium Acetate 15 meq/Potassium Phosphate 15 mmol/ Magnesium Sulfate 10 meq/Calcium Gluconate 10 meq/ Multivitamins 10 ml/Chromium/ Copper/Manganese/ Seleni/Zn 0.5 ml/ Total Parenteral Nutrition/Amino Acids/Dextrose/ Fat Emulsion Intravenous 1,920 ml @ 80 mls/hr TPN CONT IV Last administered on 07/10/19at 21:48; Start 07/10/19 at 22:00; Stop 07/11/19 at 21:59; Status DC Potassium Acetate 15 meq/Potassium Phosphate 15 mmol/ Magnesium Sulfate 10 m eq/Calcium Gluconate 10 meq/ Multivitamins 10 ml/Chromium/ Copper/Manganese/ Seleni/Zn 0.5 ml/ Total Parenteral Nutrition/Amino Acids/Dextrose/ Fat Emulsion Intravenous 1,920 ml @ 80 mls/hr TPN CONT IV Last administered on 07/11/19at 21:32; Start 07/11/19 at 22:00; Stop 07/12/19 at 21:59; Status DC Lidocaine HCl (Buffered Lidocaine 1%) 6 ml 1X ONCE INJ Last administered on 07/11/19at 14:00; Start 07/11/19 at 14:00; Stop 07/11/19 at 14:02; Status DC Lidocaine HCl (Buffered Lidocaine 1%) 3 ml STK-MED ONCE .ROUTE ; Start 07/11/19 at 13:56; Stop 07/11/19 at 14:13; Status DC Potassium Acetate 15 meq/Potassium Phosphate 15 mmol/ Magnesium Sulfate 10 meq/Calcium Gluconate 10 meq/ Multivitamins 10 ml/Chromium/ Copper/Manganese/ Seleni/Zn 0.5 ml/ Total Parenteral Nutrition/Amino Acids/Dextrose/ Fat Emulsion Intravenous 1,920 ml @ 80 mls/hr TPN CONT IV Last administered on 07/12/19at 2 1:39; Start 07/12/19 at 22:00; Stop 07/13/19 at 21:59; Status DC Midazolam HCl 100 mg/Sodium Chloride 100 ml @ 9 mls/hr CONT PRN IV SEE PROTOCOL Last administered on 07/18/19at 00:29; Start 07/13/19 at 15:00 Potassium Acetate 15 meq/Potassium Phosphate 15 mmol/ Magnesium Sulfate 10 meq/Calcium Gluconate 10 meq/ Multivitamins 10 ml/Chromium/ Copper/Manganese/ Seleni/Zn 0.5 ml/ Total Parenteral Nutrition/Amino Acids/Dextrose/ Fat Emulsion Intravenous 1,920 ml @ 80 mls/hr TPN CONT IV Last administered on 07/13/19at 22:17; Start 07/13/19 at 22:00; Stop 07/14/19 at 21:59; Status DC Potassium Acetate 15 meq/Potassium Phosphate 15 mmol/ Magnesium Sulfate 10 meq/Calcium Gluconate 10 meq/ Multivitamins 10 ml/Chromium/ Copper/Manganese/ Seleni/Zn 0.5 ml/ Total Parenteral Nutrition/Amino Acids/Dextrose/ Fat Emulsion Intravenous 1,920 ml @ 80 mls/hr TPN CONT IV Last administered on 07/14/19at 22:16; Start 07/14/19 at 22:00; Stop 07/15/19 at 21:59; Status DC Metoprolol Tartrate (Lopressor Vial) 5 mg PRN Q6HRS PRN IVP TACHYCARDIA; Start 07/15/19 at 12:30 Potassium Acetate 15 meq/Potassium Phosphate 18 mmol/ Magnesium Sulfate 15 meq/Calcium Gluconate 10 meq/ Multivitamins 10 ml/Chromium/ Copper/Manganese/ Seleni/Zn 0.5 ml/ Total Parenteral Nutrition/Amino Acids/Dextrose/ Fat Emulsion Intravenous 1,920 ml @ 80 mls/hr TPN CONT IV Last administered on 07/15/19at 22:10; Start 07/15/19 at 22:00; Stop 07/16/19 at 21:59; Status DC Potassium Acetate 15 meq/Potassium Phosphate 18 mmol/ Magnesium Sulfate 15 meq/Calcium Gluconate 10 meq/ Multivitamins 10 ml/Chromium/ Copper/Manganese/ Seleni/Zn 0.5 ml/ Total Parenteral Nutrition/Amino Acids/Dextrose/ Fat Emulsion Intravenous 1,920 ml @ 80 mls/hr TPN CONT IV Last administered on 07/16/19at 22:08; Start 07/16/19 at 22:00; Stop 07/17/19 at 21:59; Status DC Bisacodyl (Dulcolax Supp) 10 mg 1X ONCE [place] Last administered on 07/16/19at 14:50; Start 07/16/19 at 12:30; Stop 07/16/19 at 12:31; Status DC Sodium Phosphate 15 mmol/Sodium Chloride 105 ml @ 105 mls/hr 1X ONCE IV Last administered on 07/16/19at 12:33; Start 07/16/19 at 14:00; Stop 07/16/19 at 14:59; Status DC Fluconazole/ Sodium Chloride 100 ml @ 100 mls/hr Q24H IV Last administered on 07/18/19at 14:44; Start 07/17/19 at 08:00 Bisacodyl (Dulcolax Supp) 10 mg PRN DAILY PRN [place] CONSTIPATION; Start 07/17/19 at 10:15 Sodium Phosphate 20 mmol/Sodium Chloride 256.6667 ml @ 64.167 m... 1X ONCE IV Last administered on 07/17/19at 14:50; Start 07/17/19 at 14:00; Stop 07/17/19 at 17:59; Status DC Potassium Phosphate 23 mmol/ Magnesium Sulfate 15 meq/Calcium Gluconate 10 meq/ Multivitamins 10 ml/Chromium/ Copper/Manganese/ Seleni/Zn 0.5 ml/ Total Parenteral Nutrition/Amino Acids/Dextrose/ Fat Emulsion Intravenous 1,920 ml @ 80 mls/hr TPN CONT IV Last administered on 07/17/19at 22:20; Start 07/17/19 at 22:00; Stop 07/18/19 at 21:59 Fentanyl Citrate (Fentanyl 50 Mcg/ ml [employer] Syringe) 2,750 mcg STK-MED ONCE IV ; Start 07/13/19 at 22:45; Stop 07/17/19 at 15:58; Status DC Lidocaine/ Epinephrine (LIDOCAINE 1%-EPI 1:100,000 Multi-Dose) 20 ml STK-MED ONCE .ROUTE ; Start 07/18/19 at 08:20; Stop 07/18/19 at 08:21; Status DC Heparin Sodium (Porcine) (Hep Lock Adult) 500 unit STK-MED ONCE IVP ; Start 07/18/19 at 09:27; Stop 07/18/19 at 09:27; Status DC Lidocaine/ Epinephrine (LIDOCAINE 1%-EPI 1:100,000 Multi-Dose) 5 ml 1X ONCE INJ Last administered on 07/18/19at 09:46; Start 07/18/19 at 09:45; Stop 07/18/19 at 09:46; Status DC Potassium Phosphate 23 mmol/ Magnesium Sulfate 15 meq/Calcium Gluconate 10 meq/ Multivitamins 10 ml/Chromium/ Copper/Manganese/ Seleni/Zn 0.5 ml/ Total Parenteral Nutrition/Amino Acids/Dextrose/ Fat Emulsion Intravenous 1,920 ml @ 80 mls/hr TPN CONT IV ; Start 07/18/19 at 22:00; Stop 07/19/19 at 21:59 Active Scripts Active Vitals/I & O Vital Sign - Last 24 Hours 07/17/19 07/17/19 07/17/19 07/17/19 20:00 20:00 20:15 21:00 Temp 99.8 99.8 Pulse 96 98 Resp 22 20 B/P (MAP) 121/74 (90) 122/74 (90) Pulse Ox 98 96 100 O2 Delivery Ventilator Mechanical Ventilator V60 AVAPS Ventilator 07/17/19 07/17/19 07/17/19 07/18/19 22:00 23:00 23:33 00:00 Temp 99.2 99.2 Pulse 100 94 104 Resp 20 20 20 B/P (MAP) 127/74 (91) 131/77 (95) 127/72 (90) Pulse Ox 100 98 100 100 O2 Delivery Ventilator Ventilator V60 AVAPS Ventilator 07/18/19 07/18/19 07/18/19 07/18/19 00:00 01:00 02:00 03:00 Pulse 106 104 90 Resp 20 20 20 B/P (MAP) 119/73 (88) 111/60 (77) 104/61 (75) Pulse Ox 100 100 100 O2 Delivery Mechanical Ventilator Ventilator Ventilator Ventilator 07/18/19 07/18/19 07/18/19 07/18/19 04:00 04:00 04:15 05:00 Temp 99.0 99.0 Pulse 90 92 Resp 20 20 B/P (MAP) 101/60 (74) 96/63 (74) Pulse Ox 100 100 100 O2 Delivery Mechanical Ventilator Ventilator V60 AVAPS Ventilator 07/18/19 07/18/19 07/18/19 07/18/19 06:00 07:00 07:22 08:00 Pulse 94 106 146 Resp 20 B/P (MAP) 94/58 (70) 150/90 (110) 146/70 (95) Pulse Ox 99 98 98 96 O2 Delivery Ventilator Ventilator V60 AVAPS Ventilator 07/18/19 07/18/19 07/18/19 07/18/19 08:00 09:00 10:00 11:00 Pulse 110 98 92 Resp 20 20 B/P (MAP) 110/73 (85) 105/65 (78) 107/61 (76) Pulse Ox 100 100 100 O2 Delivery Mechanical Ventilator Ventilator Ventilator Ventilator 07/18/19 07/18/19 07/18/19 07/18/19 11:39 11:55 12:00 13:00 Temp 99.5 99.5 Pulse 88 90 B/P (MAP) 115/72 (86) 109/69 (82) Pulse Ox 99 100 100 O2 Delivery V60 AVAPS Mechanical Ventilator Ventilator Ventilator 07/18/19 07/18/19 07/18/19 07/18/19 14:00 15:00 15:14 15:52 Pulse 88 88 B/P (MAP) 105/56 (72) 115/70 (85) Pulse Ox 100 99 99 O2 Delivery Ventilator Ventilator V60 AVAPS Mechanical Ventilator 07/18/19 07/18/19 07/18/19 07/18/19 16:00 17:00 17:25 18:00 Pulse 84 86 77 Resp 20 20 B/P (MAP) 114/70 (85) 119/76 (90) 106/65 (79) Pulse Ox 100 100 100 100 O2 Delivery Ventilator Ventilator Ventilator Ventilator 07/18/19 19:00 Pulse 100 Resp 20 B/P (MAP) 110/65 (80) Pulse Ox 100 O2 Delivery Ventilator Intake and Output 07/17/19 07/17/19 07/18/19 15:00 23:00 07:00 Intake Total 410 ml 1945.88 ml 1690 ml Output Total 2005 ml 1165 ml 1040 ml Balance -1595 ml 780.88 ml 650 ml Hemodynamically unstable?: No Is patient in severe pain?: No Is NPO status required?: Yes BRENDA JONAS MD Jul 18, 2019 19:31
[2019-07-18] MEDS ORDERED: DEXTROSE 70% IV SCH ×8 (22:00)
[2019-07-18] MEDS ORDERED: [UNRECOGNIZED DRUG - OTHER] IV SCH ×8 (22:00)
[2019-07-18] MEDS ORDERED: TOTAL PARENTERAL NUTRITION IV SCH ×8 (22:00)
[2019-07-18] MEDS ORDERED: AMINO ACID IV SCH ×8 (22:00)
[2019-07-19] VITALS (24 sets, daily range): BP systolic 99–145; BP diastolic 56–84
[2019-07-19] MEDS: DEXMEDETOMIDINE 400 MCG in IV NORMAL SALINE 100ML 96 ML IV PRN ×9 (01:23→23:24)
[2019-07-19] MEDS: PROPOFOL 100 ML IV PRN ×6 (01:24→22:10)
[2019-07-19] MEDS: CEFEPIME HCL IV Push 2 GM VIAL. IVP SCH ×3 (06:06→21:56)
[2019-07-19] MEDS: PANTOPRAZOLE IV PUSH 40 MG VIAL. IVP SCH ×2 (06:06→18:40)
[2019-07-19] MEDS: ENOXAPARIN 40 MG/0.4 ML SYRINGE. SQ SCH (06:07)
[2019-07-19] MEDS: INSULIN LISPRO 300 UNITS/3 ML VIAL. SQ SCH ×5 (06:09→23:44)
[2019-07-19] MEDS: ALBUTEROL SULFATE 2.5 MG/3 ML NEBU. NEB SCH ×4 (07:57→20:14)
[2019-07-19] MEDS: FUROSEMIDE 40 MG/4 ML VIAL. IVP SCH (08:42)
[2019-07-19 09:02] LABS: BASE EXCESS ABG 3 mmol/L (-3-3); HCO3 ABG 26 mmol/L (21-28); PCO2 ABG 30 mmHg (35-46); PO2 ABG 131 mmHg (75-108); SAT O2 ABG 98 % (92-99)
--- NOTE | 2019-07-19 09:23 | PDOC ---
SURGICAL PROGRESS NOTE Subjective no acute changes Vital Signs Vital Signs Date Time Temp Pulse Resp B/P (MAP) Pulse Ox O2 Delivery O2 Flow Rate FiO2 07/19/19 07:44 100 Ventilator 07/19/19 07:00 86 19 122/67 (85) 07/19/19 04:00 98.8 98.8 I&O Intake and Output 07/19/19 07:00 Intake Total 4070.16 ml Output Total 3665 ml Balance 405.16 ml Intake Oral 0 ml IV Total 3446.16 ml Tube Feeding 373 ml Other 251 ml Output Urine Total 3260 ml Gastric Drainage Total 0 ml Drainage Total 405 ml PATIENT HAS A LEPE: Yes HEENT: Other (trach intact) Abdomen: Soft, Other (drains in place, TF going ) Labs Laboratory Tests Test 07/17/19 12:27 07/17/19 17:39 07/17/19 22:56 07/18/19 06:50 Glucose (Fingerstick) 210 mg/dL (70-99) 194 mg/dL (70-99) 211 mg/dL (70-99) Sodium Level 138 mmol/L (136-145) Potassium Level 4.3 mmol/L (3.5-5.1) Chloride Level 105 mmol/L (98-107) Carbon Dioxide Level 29 mmol/L (21-32) Anion Gap 4 (6-14) Blood Urea Nitrogen 21 mg/dL (8-26) Creatinine 0.9 mg/dL (0.7-1.3) Estimated GFR (Cockcroft-Gault) 108.5 Glucose Level 194 mg/dL (70-99) Calcium Level 8.0 mg/dL (8.5-10.1) Phosphorus Level 2.6 mg/dL (2.6-4.7) Test 07/18/19 07:03 07/18/19 13:16 07/18/19 16:18 07/18/19 20:39 Glucose (Fingerstick) 184 mg/dL (70-99) 202 mg/dL (70-99) 195 mg/dL (70-99) 157 mg/dL (70-99) Test 07/19/19 00:19 07/19/19 06:03 Glucose (Fingerstick) 143 mg/dL (70-99) 168 mg/dL (70-99) Laboratory Tests Test 07/18/19 13:16 07/18/19 16:18 07/18/19 20:39 07/19/19 00:19 Glucose (Fingerstick) 202 mg/dL (70-99) 195 mg/dL (70-99) 157 mg/dL (70-99) 143 mg/dL (70-99) Test 07/19/19 06:03 Glucose (Fingerstick) 168 mg/dL (70-99) Problem List Problems Medical Problems: (1) Acute pancreatitis Status: Acute (2) Nausea & vomiting Status: Acute Assessment/Plan supportive care MAXIMILIANO GREENBERG APRN Jul 19, 2019 09:23
[2019-07-19] MEDS: INSULIN GLARGINE SYRINGE. SQ SCH ×2 (09:33→21:15)
--- NOTE | 2019-07-19 09:36 | PDOC ---
Infectious Disease Note Subjective Subjective Fever Tmax 100.7 Trach FiO2 35% Sedated ROS ROS unobtainable Vital Sign Vital Signs Vital Signs Date Time Temp Pulse Resp B/P (MAP) Pulse Ox O2 Delivery O2 Flow Rate FiO2 07/19/19 07:44 100 Ventilator 07/19/19 07:00 86 19 122/67 (85) 07/19/19 04:00 98.8 98.8 Physical Exam PHYSICAL EXAM GENERAL: Sedated, trached/vent, HEENT: Pupils equal reactive NECK: Trach LUNGS: Diminished aeration bases HEART: S1, S2, regular ABDOMEN: Distended, bowel sounds quiet, multiple drains, wound vac in place : [place] in place EXTREMITIES: 1+ edema, no cyanosis. SCDs bilaterally SKIN: Warm, moist. 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 Labs Lab Laboratory Tests Test 07/18/19 13:16 07/18/19 16:18 07/18/19 20:39 07/19/19 00:19 Glucose (Fingerstick) 202 mg/dL (70-99) 195 mg/dL (70-99) 157 mg/dL (70-99) 143 mg/dL (70-99) Test 07/19/19 06:03 Glucose (Fingerstick) 168 mg/dL (70-99) Micro 07/16. BLOOD CULTURE Preliminary NO GROWTH AFTER 1 DAY Objective Assessment Fever - ? ileus/pancreatitis/abd distension/pleural effusion/occlusive clot in cephalic - blood cults 07/16 neg so far Leukocytosis - better - ? reactive given procedure 07/06, better Left pleural effusion s/p thoracentesis, 07/10 - PH 7.34, nucleated cells 1580, RBC 41651. glu 149,TP 3.2, LDH 269. cultures no growth Gallbladder stone pancreatitis s/p expl lap, pancreatic necrosectomy, cholecystostomy tube placement, G-tube placement with jejunal extension, 06/21 -gastrostomy tube repositioned by IR 07/03; s/p Jejunostomy placement 07/06 per nursing, no report Intra-abd fluid collections Sepsis from GI - cult neg Acute Resp failure - s/p trach 06/21, vent dependent Lactic acidosis. Acute kidney injury previously requiring dialysis - now with improved UOP, HDC now out Metabolic acidosis. Hypocalcemia Right arm swelling, + occlusive thrombosis within the cephalic vein, no DVT on US Yeast in sputum from 07/03 likely represents colonization - was on antifungal when collected Anemia s/p PRBCs 07/05 Plan Plan of Care Cefepime/Flagyl (07/05), Zyvox (07/03) and Fluconazole (07/16) BC neg to date Maintain aspiration precaution. Gen surgery following CBC in am Critically ill Attending Co-Sign The patient was seen and interviewed as well as examined at the bedside. The chart was reviewed. Pt cont to have intermitent fevers Arousable, Agree with the plan of care. Critically ill D/W at bedside D/W TANVI GREEN APRN Jul 19, 2019 09:36 THUY GOODMAN MD Jul 19, 2019 14:21
[2019-07-19 09:45] LABS: FIO2 ABG 35
--- NOTE | 2019-07-19 10:39 | PDOC ---
PULMONARY PROGRESS NOTES Subjective Hemodynamically stable, currently on AVAPS respirator via trach attempt to weaned off versed/ on low dose propofol fevers low grade Vitals Vital Signs Date Time Temp Pulse Resp B/P (MAP) Pulse Ox O2 Delivery O2 Flow Rate FiO2 07/19/19 10:00 100 16 133/72 (92) 100 Ventilator 07/19/19 09:00 99.0 99.0 Comments Visual exam done via tele-medicine AVAPS ventilation via tracheotomy no soa, no rash no leg edema Labs Laboratory Tests Test 07/17/19 12:27 07/17/19 17:39 07/17/19 22:56 07/18/19 06:50 Glucose (Fingerstick) 210 mg/dL (70-99) 194 mg/dL (70-99) 211 mg/dL (70-99) Sodium Level 138 mmol/L (136-145) Potassium Level 4.3 mmol/L (3.5-5.1) Chloride Level 105 mmol/L (98-107) Carbon Dioxide Level 29 mmol/L (21-32) Anion Gap 4 (6-14) Blood Urea Nitrogen 21 mg/dL (8-26) Creatinine 0.9 mg/dL (0.7-1.3) Estimated GFR (Cockcroft-Gault) 108.5 Glucose Level 194 mg/dL (70-99) Calcium Level 8.0 mg/dL (8.5-10.1) Phosphorus Level 2.6 mg/dL (2.6-4.7) Test 07/18/19 07:03 07/18/19 13:16 07/18/19 16:18 07/18/19 20:39 Glucose (Fingerstick) 184 mg/dL (70-99) 202 mg/dL (70-99) 195 mg/dL (70-99) 157 mg/dL (70-99) Test 07/19/19 00:19 07/19/19 06:03 07/19/19 08:57 Glucose (Fingerstick) 143 mg/dL (70-99) 168 mg/dL (70-99) O2 Saturation 98 % (92-99) Arterial Blood pH 7.55 (7.35-7.45) Arterial Blood pCO2 at Patient Temp 30 mmHg (35-46) Arterial Blood pO2 at Patient Temp 131 mmHg (75-108) Arterial Blood HCO3 26 mmol/L (21-28) Arterial Blood Base Excess 3 mmol/L (-3-3) FiO2 35 Laboratory Tests Test 07/18/19 13:16 07/18/19 16:18 07/18/19 20:39 07/19/19 00:19 Glucose (Fingerstick) 202 mg/dL (70-99) 195 mg/dL (70-99) 157 mg/dL (70-99) 143 mg/dL (70-99) Test 07/19/19 06:03 07/19/19 08:57 Glucose (Fingerstick) 168 mg/dL (70-99) O2 Saturation 98 % (92-99) Arterial Blood pH 7.55 (7.35-7.45) Arterial Blood pCO2 at Patient Temp 30 mmHg (35-46) Arterial Blood pO2 at Patient Temp 131 mmHg (75-108) Arterial Blood HCO3 26 mmol/L (21-28) Arterial Blood Base Excess 3 mmol/L (-3-3) FiO2 35 Medications Active Scripts Medications Dose Route/Sig Max Daily Dose Days Date Category Comments cxr 07/14 reviewed poor insp effort Left basal effusion/ atelectasis CT chest IMPRESSION: Infiltrates with air bronchograms posterior medially at the right lung base without change. Moderate left pleural effusion with atelectasis or infiltrate at the left lung base without significant change. Continued presence of an enlarged edematous pancreas with inflammatory changes in the mesentery consistent with history of necrotic pancreatitis and showing some mild improvement. Continued presence of drainage tubes in the upper abdomen with no significant fluid collections surrounding the tips of these tubes. There is however still some free fluid present in the abdomen abdomen. Soft tissue process anteriorly within the cardiac fat pad which appears slightly more prominent than on previous examination and may reflect an inflammatory process. Impression . IMPRESSION: 1. Acute hypoxemic respiratory failure, multifactorial, 2. Acute gallstone pancreatitis./ Necrosis. s/p Exploratory laparotomy, pancreatic necrosectomy, cholecystostomy tube placement, Gastrostomy placement with jejunal extension, tracheostomy placement (specifically 8 shiley cuffed) 06/21 3. Acute kidney failure. improving 4. Metabolic toxic encephalopathy. 5. Hyperkalemia.corrected 6. Metabolic / respiratory acidosis 7. Hypocalcemia. 8. POSSIBLE ABD COMPARTMENT SYNDROME , s/p Exp lap 9. HEP B S POSITIVE 10. Hypernatremia, resolved 11. LLL small effusion, monitor 12. FEVER PER ID, improvement afebrile the last 48 hours 13. Occlusive thrombus within the cephalic vein no DVT on ultrasound ri Repeat CT Infiltrates with air bronchograms posterior medially at the right lung base without change. Moderate left pleural effusion with atelectasis or infiltrate at the left lung base without significant change. Continued presence of an enlarged edematous pancreas with inflammatory changes in the mesentery consistent with history of necrotic pancreatitis and showing some mild improvement. Continued presence of drainage tubes in the upper abdomen with no significant fluid collections surrounding the tips of these tubes. There is however still some free fluid present in the abdomen abdomen. Soft tissue process anteriorly within the cardiac fat pad which appears slightly more prominent than on previous examination and may reflect an inflammatory process. Plan . Contine AVAPS at current settings, not ready fro CPAP trail 2/2 inability to reduce sedation very difficult to wean sedation. will try to wean off versed, try low dose propofol,needs PRN Paralytics Antibiotics per ID Any further CT abdomen, will defer to ID and surgery Follow surgery input Nutrition per TPN Monitor Hb DVT GI prophylaxis Consider LTAC transfer Case discussed with TAYA SERRANO MD Jul 19, 2019 10:39
[2019-07-19] MEDS: TPN PER PHARMACY MC PRN (10:40)
--- NOTE | 2019-07-19 10:42 | NUR ---
Pharmacy TPN Dosing Note S: CHRISTOPHER NEWSOME is a 49 year old M Currently receiving Central Continuous TPN started 06/19/19 B:Pertinent PMH: PANCREATITIS Height: 5 feet, 9 inches Weight: 106.0 kg Current diet: NPO LABS: Sodium: 138 Potassium: 4.3 Chloride: 105 Calcium: 8.0 Corrected Calcium: 10.32 Magnesium: 1.9 CO2: 29 SCr: 0.9 Glucose: 143-168 Albumin: 1.1 AST: 58 ALT: 45 TPN FORMULA: TPN TYPE: Central Continuous AMINO ACIDS: 145 gm DEXTROSE: 285 gm POTASSIUM PHOSPHATE: 23 mmol MAGNESIUM: 15 mEq CALCIUM: 10 mEq MULTIPLE VITAMIN: 10 ml TRACE ELEMENTS: 0.5 ml(s) TPN PLAN: No labs. Pt on propofol, took out lipids from TPN per RD recomendations. Repeat labs on 07/20. R: Change TPN as noted above. Will monitor electrolytes, glucose, and tolerance to TPN. JULIA SALGADO [facility], 07/19/19 [id number]
[2019-07-19] MEDS: fentaNYL HIGH DOSE PCA 55 ML IV PRN (13:09)
[2019-07-19] MEDS: IV NORMAL SALINE 1000ML BAG 1,000 ML IV SCH (15:39)
[2019-07-19] MEDS: ACETAMINOPHEN 650 MG SUPP.RECT. PR PRN (17:25)
--- NOTE | 2019-07-19 19:33 | PDOC ---
PROGRESS NOTES Chief Complaint Chief Complaint Severe pancreatitis with the following surgery: Exploratory laparotomy, pancreatic necrosectomy, cholecystostomy tube placement, Gastrostomy placement with jejunal extension, tracheostomy placement (specifically 8 shiley cuffed) Acute hypoxemic respiratory failure, multifactorial. Status post tracheostomy 5 drains Acute gallstone pancreatitis./ Necrosis Acute kidney failure. improving Metabolic toxic encephalopathy. Hyperkalemia.corrected Metabolic / respiratory acidosis Hypocalcemia. Hepatitis B Hypernatremia LLL small effusion, monitor Plan: continue vent support unable to do trials due to agitation discussed with pulmonary jd edwards consultant at bedside quite poor prognosis. reassess in the am History of Present Illness History of Present Illness 07/19/2019 at bedside. Patient being weaned off his sedation and he is moving all his extremities especially the upper extremities. Patient quite debilitated and with signs of atrophy as expected from his prolonged hospital stay. Discussed with at bedside. Reassurance has been provided all of her concerns were addressed to the best of my abilities. Discussed with RN at bedside 07/18/2019 Patient continues on sedation, discussed with RN and websphere consultant. We need to try to wean off sedation at this point since the patient remains pretty much status quo. Will discuss with pulmonary jd edwards consultant plan of care. 07/17/2019 no changes compared to yesterday unable to wean off sedation due to agitation according to nursing staff quite the conundrum, may have to address end of life with 07/16/2019 critically stable still getting very agitated if sedation wears off no other acute events reported overnight. [id number] Patient seen and examined in the ICU He remains critically ill on the vent He is on pressure control 32/5 with 40% FiO2 His Deacon is present Chart reviewed Discussed with RN He is extremely critically ill and I'm concerned about his long-term prognosis [id number] Patient seen and examined in the ICU He remains extremely critically ill Intubated On pressure control 32 with 5 of PEEP 500 tidal volume rate of 20 and 40% FiO2 Sedated On TPN Discussed with RN Chart reviewed [id number] Patient seen and examined in the ICU his is present Discussed with RN Chart reviewed The patient actually open his eyes and tried to look at me? [id number] Patient seen and examined in the ICU He remains intubated and mechanically ventilated Extremely critically ill On TPN Versed Precedex and fentanyl Vent settings before meals/20/500/40% Discussed with mate chief and RN Chart reviewed [id number] Patient seen and examined in the ICU Currently getting a sponge bath Got a great view of his abdomen He has a total of 7 different drains and/or catheters Still mechanically ventilated Off of pressors Sedated Periodically can open his eyes Still very critically ill Chart reviewed Discussed with RNs [id number] Patient seen and examined in the intensive care unit He remains mechanically ventilated Before meals//40% Extremely critically ill He has 4 or 5 drains in including GJ tube Discussed with RN Chart reviewed [id number] Patient seen and examined in the ICU He is still mechanically ventilated assist-control/ with 40% Chart reviewed Discussed with RN He remains very critically ill [id number] Patient seen and examined in the ICU Discussed with general surgeon and he examined the patient with me Patient's is present in his good support for him Currently still intubated and on the vent He is on assist control with 40% oxygen Remains very critically ill Mr Mata is a 49 yo M admitted with severe epigastric pain beginning in the morning of admission. Ultimately diagnosed with gallstone pancreatitis. Hemodialysis catheter placed for renal failure. Arterial blood gas revealed a pH of 7.30, PaCO2 of 31, PaO2 of 75, bicarb was 15. Consulted ID, GI, General surgery, nephrology, pulmonology 06/21: Ex-lap with pancreatic necrosectomy, cholecystectomy, gastrostomy tube lpacement, tracheostomy placement. 06/22 - 06/26: Has 5 abdominal drains plus a Lobato and an NG to suction, intubated, sedated, paralyzed 06/28- 07/02: remain on micafungin, TPN. Trached on vent, sedated, 40% FiO2 07/03: His dialysis catheter and central line were removed. Ventilated via trach and sedated 07/04: Sedated on precedex. ABG reviewed, stable. Vitals stable, drains stable, still requiring ventilation on trach. Hb 7.6. TAG 1170 changed from propofol to versed for sedation 07/06 reposition G-tube. Overnight sedated. Still febrile. More comfortable on versed for sedation. Hb 7, 1u PRBC ordered. plan: Trend CBC Vitals Vitals Vital Signs Date Time Temp Pulse Resp B/P (MAP) Pulse Ox O2 Delivery O2 Flow Rate FiO2 07/19/19 19:00 87 15 99/56 (70) 99 Ventilator 07/19/19 17:00 101.1 101.1 Physical Exam Physical Exam GENERAL: Sedated, trached/vent, HEENT: Pupils equal reactive NECK: Trach LUNGS: Diminished aeration bases HEART: S1, S2, regular ABDOMEN: Distended, bowel sounds quiet, multiple drains, wound vac in place : Lobato in place EXTREMITIES: 1+ edema, no cyanosis. SCDs bilaterally SKIN: Warm, moist. 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 General: Other (sedated) Heart: Regular rate, Normal S1, Normal S2, No murmurs, Gallops Abdomen: Soft, Other (drains in place, TF going ) Extremities: No clubbing, No cyanosis, No edema, Normal pulses, No tenderness/swelling Skin: No significant lesion Labs LABS Laboratory Tests Test 07/18/19 20:39 07/19/19 00:19 07/19/19 06:03 07/19/19 08:57 Glucose (Fingerstick) 157 mg/dL (70-99) 143 mg/dL (70-99) 168 mg/dL (70-99) O2 Saturation 98 % (92-99) Arterial Blood pH 7.55 (7.35-7.45) Arterial Blood pCO2 at Patient Temp 30 mmHg (35-46) Arterial Blood pO2 at Patient Temp 131 mmHg (75-108) Arterial Blood HCO3 26 mmol/L (21-28) Arterial Blood Base Excess 3 mmol/L (-3-3) FiO2 35 Test 07/19/19 11:54 07/19/19 18:36 Glucose (Fingerstick) 167 mg/dL (70-99) 139 mg/dL (70-99) Assessment and Plan Assessmemt and Plan Problems Medical Problems: (1) Acute pancreatitis Status: Acute (2) Nausea & vomiting Status: Acute Comment Review of Relevant I have reviewed the following items alexandra (where applicable) has been applied. Labs Laboratory Tests Test 07/17/19 22:56 07/18/19 06:50 07/18/19 07:03 07/18/19 13:16 Glucose (Fingerstick) 211 mg/dL (70-99) 184 mg/dL (70-99) 202 mg/dL (70-99) Sodium Level 138 mmol/L (136-145) Potassium Level 4.3 mmol/L (3.5-5.1) Chloride Level 105 mmol/L (98-107) Carbon Dioxide Level 29 mmol/L (21-32) Anion Gap 4 (6-14) Blood Urea Nitrogen 21 mg/dL (8-26) Creatinine 0.9 mg/dL (0.7-1.3) Estimated GFR (Cockcroft-Gault) 108.5 Glucose Level 194 mg/dL (70-99) Calcium Level 8.0 mg/dL (8.5-10.1) Phosphorus Level 2.6 mg/dL (2.6-4.7) Test 07/18/19 16:18 07/18/19 20:39 07/19/19 00:19 07/19/19 06:03 Glucose (Fingerstick) 195 mg/dL (70-99) 157 mg/dL (70-99) 143 mg/dL (70-99) 168 mg/dL (70-99) Test 07/19/19 08:57 07/19/19 11:54 07/19/19 18:36 O2 Saturation 98 % (92-99) Arterial Blood pH 7.55 (7.35-7.45) Arterial Blood pCO2 at Patient Temp 30 mmHg (35-46) Arterial Blood pO2 at Patient Temp 131 mmHg (75-108) Arterial Blood HCO3 26 mmol/L (21-28) Arterial Blood Base Excess 3 mmol/L (-3-3) FiO2 35 Glucose (Fingerstick) 167 mg/dL (70-99) 139 mg/dL (70-99) Laboratory Tests Test 07/18/19 20:39 07/19/19 00:19 07/19/19 06:03 07/19/19 08:57 Glucose (Fingerstick) 157 mg/dL (70-99) 143 mg/dL (70-99) 168 mg/dL (70-99) O2 Saturation 98 % (92-99) Arterial Blood pH 7.55 (7.35-7.45) Arterial Blood pCO2 at Patient Temp 30 mmHg (35-46) Arterial Blood pO2 at Patient Temp 131 mmHg (75-108) Arterial Blood HCO3 26 mmol/L (21-28) Arterial Blood Base Excess 3 mmol/L (-3-3) FiO2 35 Test 07/19/19 11:54 07/19/19 18:36 Glucose (Fingerstick) 167 mg/dL (70-99) 139 mg/dL (70-99) Microbiology 07/17/19 Blood Culture - Preliminary, Resulted NO GROWTH AFTER 2 DAYS 07/11/19 Aerobic and Anaerobic Culture - Final, Complete 07/11/19 Anaerobic Culture Result 1 (CARINE) - Final, Complete 07/11/19 Aerobic Culture - Final, Complete 07/11/19 Aerobic Culture Result 1 (CARINE) - Final, Complete 07/11/19 Gram Stain - Final, Complete 07/11/19 Gram Stain Result 1 (CARINE) - Final, Complete 07/11/19 Gram Stain Result 2 (CARINE) - Final, Complete 07/04/19 - Final, Complete 07/04/19 - Final, Complete 07/04/19 - Final, Complete 07/04/19 Gram Stain Evaluation - Final, Complete 07/04/19 Sputum Culture - Final, Complete 07/04/19 Sputum Result 1 - Final, Complete 07/03/19 Aerobic Culture - Final, Complete 07/03/19 Aerobic Culture Result 1 (CARINE) - Final, Complete 07/03/19 Gram Stain - Final, Complete 07/03/19 Gram Stain Result 1 (CARINE) - Final, Complete 07/03/19 Gram Stain Result 2 (CARINE) - Final, Complete Medications Current Medications Morphine Sulfate (Morphine Sulfate) 4 mg PRN Q15MIN PRN IV/SQ PAIN GREATER THAN 3/10 Last administered on 06/11/19at 04:58; Start 06/11/19 at 04:30; Stop 06/11/19 at 16:47; Status DC Sodium Chloride 1,000 ml @ 1,000 mls/hr Q1H IV Last administered on 06/11/19at 04:34; Start 06/11/19 at 04:30; Stop 06/11/19 at 05:29; Status DC Ondansetron HCl (Zofran) 4 mg 1X ONCE IV Last administered on 06/11/19at 04:33; Start 06/11/19 at 04:30; Stop 06/11/19 at 04:33; Status DC Iohexol (Omnipaque 350 Mg/ml) 100 ml 1X ONCE IV Last administered on 06/11/19at 05:01; Start 06/11/19 at 04:45; Stop 06/11/19 at 04:46; Status DC Info (CONTRAST GIVEN -- Rx MONITORING) 1 each PRN DAILY PRN MC SEE COMMENTS; Start 06/11/19 at 04:45; Stop 06/13/19 at 04:44; Status DC Fentanyl Citrate (Fentanyl 2ml Vial) 100 mcg STK-MED ONCE .ROUTE ; Start 06/11/19 at 04:42; Stop 06/11/19 at 04:42; Status DC Fentanyl Citrate (Fentanyl 2ml Vial) 50 mcg 1X ONCE IVP Last administered on 06/11/19at 04:45; Start 06/11/19 at 05:00; Stop 06/11/19 at 05:01; Status DC Ondansetron HCl (Zofran) 4 mg PRN Q8HRS PRN IV NAUSEA/VOMITING Last administered on 06/12/19at 03:29; Start 06/11/19 at 05:45; Stop 06/12/19 at 05:44; Status DC Morphine Sulfate (Morphine Sulfate) 4 mg PRN Q2HR PRN IV PAIN Last administered on 06/11/19at 07:37; Start 06/11/19 at 05:45; Stop 06/11/19 at 11:54; Status DC Sodium Chloride 1,000 ml @ 150 mls/hr Q6H40M IV Last administered on 06/12/19at 03:28; Start 06/11/19 at 05:45; Stop 06/12/19 at 11:01; Status DC Hydromorphone HCl (Dilaudid) 0.5 mg PRN Q3HRS PRN IV PAIN Last administered on 06/11/19at 08:38; Start 06/11/19 at 05:45; Stop 06/11/19 at 09:12; Status DC Potassium Chloride/Water 100 ml @ 100 mls/hr Q1H IV Last administered on 06/11/19at 08:41; Start 06/11/19 at 06:00; Stop 06/11/19 at 07:59; Status DC Hydromorphone HCl (Dilaudid) 1 mg PRN Q3HRS PRN IV PAIN Last administered on 06/11/19at 09:29; Start 06/11/19 at 09:15; Stop 06/11/19 at 11:54; Status DC Prochlorperazine Edisylate (Compazine) 10 mg PRN Q8HRS PRN IV NAUSEA/VOMITING, 2ND CHOICE Last administered on 06/12/19at 14:59; Start 06/11/19 at 12:00 Hydromorphone HCl (Dilaudid) 1 mg PRN Q2HRS PRN IV SEVERE PAIN Last administered on 07/15/19at 07:36; Start 06/11/19 at 12:00 Pantoprazole Sodium (PROTONIX VIAL for IV PUSH) 40 mg DAILYAC IVP Last administered on 06/12/19at 08:29; Start 06/11/19 at 15:00; Stop 06/12/19 at 16:23; Status DC Lorazepam (Ativan Inj) 1 mg PRN Q6HRS PRN IVP ANXIETY / AGITATION Last administered on 07/16/19at 17:46; Start 06/11/19 at 18:15 Hydralazine HCl (Apresoline Inj) 10 mg PRN Q6HRS PRN IVP ELEVATED BP, SEE COMMENTS Last administered on 06/18/19at 09:32; Start 06/11/19 at 18:15; Stop 06/21/19 at 09:12; Status DC Nystatin (Nystop) 1 devorah PRN QID PRN TP FUNGAL RASH Last administered on 06/11/19at 23:19; Start 06/11/19 at 23:15 Sodium Chloride 1,000 ml @ 1,000 mls/hr 1X ONCE IV Last administered on 06/12/19at 05:27; Start 06/12/19 at 06:00; Stop 06/12/19 at 06:59; Status DC Sodium Chloride 1,000 ml @ 1,000 mls/hr 1X ONCE IV Last administered on 06/12/19at 05:25; Start 06/12/19 at 05:00; Stop 06/12/19 at 05:59; Status DC Sodium Chloride 1,000 ml @ 200 mls/hr Q5H IV Last administered on 06/12/19at 06:36; Start 06/12/19 at 07:00; Stop 06/12/19 at 11:01; Status DC Sodium Bicarbonate 50 meq/Sodium Chloride 1,050 ml @ 150 mls/hr Q7H IV Last administered on 06/13/19at 04:16; Start 06/12/19 at 11:00; Stop 06/13/19 at 14:48; Status DC Amino Acids/ Glycerin/ Electrolytes 1,000 ml @ 80 mls/hr [id number] IV ; Start 06/12/19 at 10:00; Status UNV Amino Acids/ Electrolytes/ Dextrose 1,000 ml @ 80 mls/hr [id number] IV ; Start 06/12/19 at 10:15; Stop 06/18/19 at 13:50; Status DC Piperacillin Sod/ Tazobactam Sod (Zosyn Per Pharmacy) 1 each PRN DAILY PRN MC SEE COMMENTS; Start 06/12/19 at 13:15; Stop 06/12/19 at 19:16; Status DC Piperacillin Sod/ Tazobactam Sod 2.25 gm/Sodium Chloride 50 ml @ 100 mls/hr Q6HRS IV Last administered on 06/12/19at 13:48; Start 06/12/19 at 13:30; Stop 06/12/19 at 19:15; Status DC Sodium Bicarbonate (Sodium Bicarb Adult 8.4% Syr) 50 meq 1X ONCE IV Last administered on 06/12/19at 16:12; Start 06/12/19 at 16:00; Stop 06/12/19 at 16:01; Status DC Calcium Gluconate 1000 mg/Sodium Chloride 110 ml @ 220 mls/hr 1X ONCE IV Last administered on 06/12/19at 16:13; Start 06/12/19 at 16:00; Stop 06/12/19 at 16:29; Status DC Dextrose (Dextrose 50%-Water Syringe) 25 gm 1X ONCE IV Last administered on 06/12/19at 16:13; Start 06/12/19 at 16:00; Stop 06/12/19 at 16:01; Status DC Insulin Human Regular (HumuLIN R VIAL) 10 unit 1X ONCE IV Last administered on 06/12/19at 16:14; Start 06/12/19 at 16:00; Stop 06/12/19 at 16:01; Status DC Furosemide (Lasix) 40 mg 1X ONCE IVP Last administered on 06/12/19at 16:13; Start 06/12/19 at 16:00; Stop 06/12/19 at 16:01; Status DC Pantoprazole Sodium (PROTONIX VIAL for IV PUSH) 40 mg [id number] IVP Last administered on 06/13/19at 06:21; Start 06/12/19 at 18:00; Stop 06/13/19 at 18:49; Status DC Meropenem 500 mg/ Sodium Chloride 50 ml @ 100 mls/hr Q12HR IV Last administered on 06/17/19at 20:59; Start 06/12/19 at 21:00; Stop 06/18/19 at 07:26; Status DC Calcium Gluconate 1000 mg/Sodium Chloride 110 ml @ 220 mls/hr 1X ONCE IV Last administered on 06/12/19at 20:35; Start 06/12/19 at 19:15; Stop 06/12/19 at 19:44; Status DC Lidocaine HCl (Buffered Lidocaine 1%) 3 ml STK-MED ONCE .ROUTE ; Start 06/13/19 at 08:47; Stop 06/13/19 at 08:47; Status DC Lidocaine HCl (Buffered Lidocaine 1%) 6 ml 1X ONCE INJ Last administered on 06/13/19at 09:23; Start 06/13/19 at 09:30; Stop 06/13/19 at 09:31; Status DC Insulin Human Lispro (HumaLOG) 0-7 UNITS TIDWMEALS SQ Last administered on 06/13/19at 12:14; Start 06/13/19 at 12:00; Stop 06/14/19 at 23:29; Status DC Dextrose (Dextrose 50%-Water Syringe) 12.5 gm PRN Q15MIN PRN IV SEE COMMENTS; Start 06/13/19 at 11:15; Stop 06/14/19 at 23:29; Status DC Insulin Human Regular 100 unit/ Sodium Chloride 101 ml @ 0 mls/hr CONT PRN IV SEE I/O RECORD Last administered on 06/13/19at 15:03; Start 06/13/19 at 14:15; Stop 06/21/19 at 12:37; Status DC Sodium Chloride 1,000 ml @ 1,000 mls/hr Q1H PRN IV hypotension; Start 06/13/19 at 14:00; Stop 06/13/19 at 19:59; Status DC Sodium Chloride 1,000 ml @ 400 mls/hr Q2H30M PRN IV PATENCY; Start 06/13/19 at 14:00; Stop 06/14/19 at 01:59; Status DC Info (PHARMACY MONITORING -- do not chart) 1 each PRN DAILY PRN MC SEE COMMENTS; Start 06/13/19 at 14:45; Stop 06/13/19 at 14:51; Status DC Info (PHARMACY MONITORING -- do not chart) 1 each PRN DAILY PRN MC SEE COMMENTS; Start 06/13/19 at 14:45; Stop 06/27/19 at 12:33; Status DC Pantoprazole Sodium (PROTONIX VIAL for IV PUSH) 40 mg [id number] IVP Last administered on 07/19/19at 18:40; Start 06/13/19 at 21:00 Dexmedetomidine HCl 400 mcg/ Sodium Chloride 100 ml @ 0 mls/hr CONT PRN IV PER PROTOCOL Last administered on 06/21/19at 05:52; Start 06/13/19 at 19:00; Stop 06/21/19 at 19:39; Status DC Sodium Chloride 500 ml @ 500 mls/hr 1X PRN PRN IV SEE COMMENTS; Start 06/13/19 at 19:00; Stop 07/05/19 at 08:01; Status DC Atropine Sulfate (ATROPINE 0.5mg SYRINGE) 0.5 mg PRN Q5MIN PRN IV SEE COMMENTS; Start 06/13/19 at 19:00; Stop 06/27/19 at 12:28; Status DC Sodium Chloride 1,000 ml @ 1,000 mls/hr Q1H PRN IV hypotension; Start 06/14/19 at 08:55; Stop 06/14/19 at 14:54; Status DC Albumin Human 200 ml @ 200 mls/hr 1X PRN PRN IV Hypotension Last administered on 06/14/19at 09:40; Start 06/14/19 at 09:00; Stop 06/14/19 at 14:59; Status DC Sodium Chloride 1,000 ml @ 400 mls/hr Q2H30M PRN IV PATENCY; Start 06/14/19 at 08:55; Stop 06/14/19 at 20:54; Status DC Info (PHARMACY MONITORING -- do not chart) 1 each PRN DAILY PRN MC SEE MO TS; Start 06/14/19 at 09:00; Stop 06/14/19 at 09:06; Status DC Info (PHARMACY MONITORING -- do not chart) 1 each PRN DAILY PRN MC SEE COMMENTS; Start 06/14/19 at 09:00; Stop 06/14/19 at 09:06; Status DC Calcium Chloride 2000 mg/Sodium Chloride 120 ml @ 240 mls/hr PRN QID PRN IV for CALCIUM < 5.8 Last administered on 06/15/19at 08:32; Start 06/14/19 at 10:15; Stop 06/15/19 at 09:58; Status DC Magnesium Sulfate 50 ml @ 25 mls/hr PRN DAILY PRN IV for Mag < 1.7 on am labs Last administered on 07/15/19at 08:52; Start 06/14/19 at 10:30 Norepinephrine Bitartrate 8 mg/ Dextrose 258 ml @ 20.027 mls/ hr CONT PRN IV PER PROTOCOL Last administered on 06/14/19at 10:31; Start 06/14/19 at 10:30 Succinylcholine Chloride (Anectine) 200 mg STK-MED ONCE .ROUTE ; Start 06/14/19 at 12:22; Stop 06/14/19 at 12:23; Status DC Etomidate (Amidate) 20 mg STK-MED ONCE IV ; Start 06/14/19 at 12:22; Stop 05/18 01/03 at 12:23; Status DC Fentanyl Citrate 30 ml @ 0 mls/hr CONT PRN IV SEE PROTOCOL Last administered on 06/19/19at 08:10; Start 06/14/19 at 12:45; Stop 06/19/19 at 11:00; Status DC Chlorhexidine Gluconate (Peridex) 15 ml BID MM Last administered on 06/30/19at 20:47; Start 06/14/19 at 21:00; Stop 07/01/19 at 16:34; Status DC Midazolam HCl 50 mg/Sodium Chloride 50 ml @ 0 mls/hr CONT PRN IV SEE PROTOCOL Last administered on 07/13/19at 10:19; Start 06/14/19 at 12:45; Stop 07/13/19 at 14:59; Status DC Midazolam HCl (Versed) 5 mg STK-MED ONCE .ROUTE ; Start 06/14/19 at 12:48; Stop 06/14/19 at 12:48; Status DC Fentanyl Citrate (Fentanyl 2ml Vial) 100 mcg STK-MED ONCE .ROUTE ; Start 06/14/19 at 12:48; Stop 06/14/19 at 12:48; Status DC Midazolam HCl (Versed) 5 mg 1X ONCE IV Last administered on 06/14/19at 12:59; Start 06/14/19 at 13:00; Stop 06/14/19 at 13:01; Status DC Fentanyl Citrate (Fentanyl 2ml Vial) 100 mcg 1X ONCE IM Last administered on 06/14/19at 12:58; Start 06/14/19 at 13:00; Stop 06/14/19 at 13:01; Status DC Succinylcholine Chloride (Anectine) 200 mg 1X ONCE IV Last administered on 06/14/19at 12:59; Start 06/14/19 at 13:00; Stop 06/14/19 at 13:01; Status DC Etomidate (Amidate) 14 mg 1X ONCE IV Last administered on 06/14/19at 12:59; Start 06/14/19 at 13:00; Stop 06/14/19 at 13:01; Status DC Acetaminophen (Tylenol Supp) 650 mg PRN Q6HRS PRN [place] MILD PAIN / TEMP Last admi nistered on 07/19/19at 17:25; Start 06/14/19 at 20:00 Linezolid/Dextrose 300 ml @ 300 mls/hr Q12HR IV Last administered on 07/03/19at 08:34; Start 06/14/19 at 21:00; Stop 07/03/19 at 09:09; Status DC Insulin Human Lispro (HumaLOG) 0-7 UNITS TIDWMEALS SQ ; Start 06/15/19 at 08:00; Stop 06/15/19 at 00:03; Status DC Dextrose (Dextrose 50%-Water Syringe) 12.5 gm PRN Q15MIN PRN IV SEE COMMENTS; Start 06/14/19 at 23:30; Stop 07/03/19 at 10:41; Status DC Insulin Human Lispro (HumaLOG) 0-7 UNITS Q4HRS SQ Last administered on 06/23/19at 08:05; Start 06/15/19 at 00:15; Stop 07/01/19 at 16:41; Status DC Calcium Gluconate 60120 mg/Sodium Chloride 494 ml @ 4.051 mls/ hr CONT PRN IV SYMPTOMATIC HYPOCALCEMIA; Start 06/15/19 at 09:30; Stop 06/15/19 at 09:23; Status DC Calcium Gluconate 5000 mg/Sodium Chloride 260 ml @ 5.543 mls/ hr CONT PRN IV SYMPTOMATIC HYPOCALCEMIA; Start 06/15/19 at 09:30; Stop 06/15/19 at 09:26; Status DC Calcium Gluconate 5000 mg/Sodium Chloride 260 ml @ 5.543 mls/ hr CONT PRN IV SYMPTOMATIC HYPOCALCEMIA; Start 06/15/19 at 09:30; Stop 06/15/19 at 09:29; Status DC Calcium Gluconate 5000 mg/Sodium Chloride 250 ml @ 28.782 mls/ hr CONT PRN IV SYMPTOMATIC HYPOCALCEMIA Last administered on 06/18/19at 06:12; Start 06/15/19 at 09:30; Stop 06/18/19 at 13:50; Status DC Lidocaine HCl (Lidocaine Pf 2% Vial) 5 ml STK-MED ONCE .ROUTE ; Start 06/14/19 at 12:00; Stop 06/17/19 at 10:37; Status DC Meropenem 500 mg/ Sodium Chloride 50 ml @ 100 mls/hr Q6HRS IV Last administered on 07/06/19at 12:12; Start 06/18/19 at 07:30; Stop 07/06/19 at 15:00; Status DC Nicardipine HCl 50 mg/Sodium Chloride 250 ml @ 25 mls/hr CONT PRN IV SEE I/O RECORD; Start 06/18/19 at 11:45; Stop 07/13/19 at 15:06; Status DC Metoprolol Tartrate (Lopressor Vial) 5 mg 1X ONCE IVP ; Start 06/18/19 at 12:15; Stop 06/18/19 at 12:16; Status DC Fentanyl Citrate (Fentanyl 600 Mcg/30 ml [employer]) 600 mcg STK-MED ONCE IV ; Start 06/15/19 at 05:30; Stop 06/18/19 at 12:07; Status DC Enoxaparin Sodium (Lovenox 40mg Syringe) 40 mg Q24H SQ Last administered on 06/21/19at 23:02; Start 06/18/19 at 22:30; Stop 06/22/19 at 11:07; Status DC Fentanyl Citrate 55 ml @ 1.98 mls/hr CONT PRN IV SEE PROTOCOL; Start 06/19/19 at 08:15; Status Cancel Info (Tpn Per Pharmacy) 1 each PRN DAILY PRN MC SEE COMMENTS Last administered on 07/19/19at 10:40; Start 06/19/19 at 11:15 Hydralazine HCl (Apresoline Inj) 10 mg PRN Q4HRS PRN IVP ELEVATED BP, 1st choice Last administered on 07/15/19at 07:33; Start 06/19/19 at 11:45 Labetalol HCl (Normodyne Iv Push) 20 mg PRN Q2HR PRN IVP HYPERTENSION, 2nd choice Last administered on 06/26/19at 14:44; Start 06/19/19 at 11:45 Potassium Phosphate 13.6 mmol/Magnesium Sulfate 10 meq/ Calcium Gluconate 20 meq/ Multivitamins 10 ml/Chromium/ Copper/Manganese/ Seleni/Zn 0.5 ml/ Total Parenteral Nutrition/Amino Acids/Dextrose/ Fat Emulsion Intravenous 1,920 ml @ 80 mls/hr TPN CONT IV Last administered on 06/19/19at 21:31; Start 06/19/19 at 22:00; Stop 06/20/19 at 21:59; Status DC Fentanyl Citrate 30 ml @ 0 mls/hr CONT PRN IV SEE PROTOCOL Last administered on 06/24/19at 09:31; Start 06/19/19 at 18:00; Stop 06/24/19 at 11:38; Status DC Micafungin Sodium 100 mg/Dextrose 100 ml @ 100 mls/hr Q24H IV Last administered on 07/07/19at 08:19; Start 06/20/19 at 09:00; Stop 07/07/19 at 09:51; Status DC Potassium Phosphate 13.6 mmol/Calcium Gluconate 20 meq/ Multivitamins 10 ml/Chromium/ Copper/Manganese/ Seleni/Zn 0.5 ml/ Insulin Human Regular 10 unit/ Total Parenteral Nutrition/Amino Acids/Dextrose/ Fat Emulsion Intravenous 1,920 ml @ 80 mls/hr TPN CONT IV Last administered on 06/20/19at 21:57; Start 06/20/19 at 22:00; Stop 06/21/19 at 21:59; Status DC Insulin Glargine (Lantus Syringe) 15 unit QHS SQ Last administered on 06/20/19at 20:46; Start 06/20/19 at 21:00; Stop 06/21/19 at 12:32; Status DC Insulin Glargine (Lantus Syringe) 20 unit QHS SQ Last administered on 07/02/19at 20:46; Start 06/21/19 at 21:00; Stop 07/03/19 at 10:39; Status DC Potassium Phosphate 13.6 mmol/Calcium Gluconate 20 meq/ Multivitamins 10 ml/Chromium/ Copper/Manganese/ Seleni/Zn 0.5 ml/ Insulin Human Regular 10 unit/ Total Parenteral Nutrition/Amino Acids/Dextrose/ Fat Emulsion Intravenous 1,920 ml @ 80 mls/hr TPN CONT IV Last administered on 06/21/19at 21:31; Start 06/21/19 at 22:00; Stop 06/22/19 at 21:59; Status DC Dextrose 1,000 ml @ 75 mls/hr [id number] IV Last administered on 06/27/19at 01:32; Start 06/22/19 at 07:00; Stop 06/27/19 at 12:43; Status DC Albuterol Sulfate (Ventolin Neb Soln) 2.5 mg RTQID NEB Last administered on 07/19/19at 15:11; Start 06/22/19 at 08:00 Iohexol (Omnipaque 240 Mg/ml) 30 ml 1X ONCE PO ; Start 06/22/19 at 08:00; Stop 06/22/19 at 08:05; Status DC Iohexol (Omnipaque 300 Mg/ml) 75 ml 1X ONCE IV ; Start 06/22/19 at 08:00; Stop 06/22/19 at 08:01; Status Cancel Info (CONTRAST GIVEN -- Rx MONITORING) 1 each PRN DAILY PRN MC SEE COMMENTS; S tart 06/22/19 at 08:15; Stop 06/24/19 at 08:14; Status DC Cefoxitin Sodium (Mefoxin) 2 gm 1X PREOP IVP ; Start 06/22/19 at 11:00; Stop 06/22/19 at 11:16; Status DC Cefoxitin Sodium (Mefoxin) 2 gm 1X PREOP ONCE IVP Last administered on 06/22/19at 11:37; Start 06/22/19 at 11:30; Stop 06/22/19 at 11:31; Status DC Rocuronium [place] (Zemuron) 50 mg STK-MED ONCE .ROUTE ; Start 06/22/19 at 11:42; Stop 06/22/19 at 11:42; Status DC Propofol 20 ml @ As Directed STK-MED ONCE IV ; Start 06/22/19 at 11:42; Stop 06/22/19 at 11:43; Status DC Dexamethasone Sodium Phosphate (Decadron) 4 mg STK-MED ONCE .ROUTE ; Start 06/22/19 at 11:45; Stop 06/22/19 at 11:45; Status DC Ondansetron HCl (Zofran) 4 mg STK-MED ONCE .ROUTE ; Start 06/22/19 at 11:45; Stop 06/22/19 at 11:45; Status DC Potassium Phosphate 13.6 mmol/Magnesium Sulfate 5 meq/ Calcium Gluconate 20 meq/ Multivitamins 10 ml/Chromium/ Copper/Manganese/ Seleni/Zn 0.5 ml/ Total Parenteral Nutrition/Amino Acids/Dextrose/ Fat Emulsion Intravenous 1,920 ml @ 80 mls/hr TPN CONT IV Last administered on 06/22/19at 22:14; Start 06/22/19 at 22:00; Stop 06/23/19 at 21:59; Status DC Rocuronium [place] (Zemuron) 100 mg STK-MED ONCE .ROUTE ; Start 06/22/19 at 13:05; Stop 06/22/19 at 13:06; Status DC Cellulose (Surgicel Hemostat 4x8) 1 each STK-MED ONCE .ROUTE Last administered on 06/22/19at 12:46; Start 06/22/19 at 13:14; Stop 06/22/19 at 13:14; Status DC Albumin Human 500 ml @ As Directed STK-MED ONCE IV ; Start 06/22/19 at 13:25; Stop 06/22/19 at 13:25; Status DC Sevoflurane (Ultane) 90 ml STK-MED ONCE IH ; Start 06/22/19 at 13:53; Stop 06/22/19 at 13:53; Status DC Cellulose (Surgicel Hemostat 4x8) 1 each STK-MED ONCE TP Last administered on 06/22/19at 12:46; Start 06/22/19 at 12:46; Stop 06/22/19 at 14:25; Status DC Cellulose (Surgicel Hemostat 4x8) 1 each STK-MED ONCE TP Last administered on 06/22/19at 12:46; Start 06/22/19 at 12:46; Stop 06/22/19 at 14:25; Status DC Rocuronium [place] (Zemuron) 50 mg STK-MED ONCE .ROUTE ; Start 06/22/19 at 14:52; Stop 06/22/19 at 14:52; Status DC Vecuronium [place] 50 mg/ Miscellaneous 50 ml @ 4.925 mls/ hr CONT PRN IV SEE PROTOCOL Last administered on 06/25/19at 05:19; Start 06/22/19 at 15:00 Enoxaparin Sodium (Lovenox 40mg Syringe) 40 mg Q24H SQ Last administered on 07/19/19at 06:07; Start 06/23/19 at 06:00 Sodium Chloride (Normal Saline Flush) 3 ml QSHIFT PRN IV AFTER MEDS AND BLOOD DRAWS; Start 06/22/19 at 15:45 Ringer's Solution 1,000 ml @ 100 mls/hr Q10H IV Last administered on 06/23/19at 22:06; Start 06/22/19 at 15:39; Stop 06/24/19 at 17:46; Status DC Naloxone HCl (Narcan) 0.4 mg PRN Q2MIN PRN IV SEE INSTRUCTIONS Last administered on 07/15/19at 07:58; Start 06/22/19 at 15:45 Sodium Chloride 1,000 ml @ 25 mls/hr Q24H IV Last administered on 07/18/19at 16:16; Start 06/22/19 at 15:39 Morphine Sulfate (Morphine Sulfate) 1 mg PRN Q1HR PRN IV MODERATE PAIN Last administered on 07/15/19at 08:48; Start 06/22/19 at 15:45 Ondansetron HCl (Zofran) 4 mg PRN Q6HRS PRN IVP NAUESA, 1ST CHOICE; Start 06/22/19 at 15:45 Calcium Gluconate (Calcium Gluconate) 1,000 mg 1X ONCE IVP ; Start 06/22/19 at 19:45; Stop 06/22/19 at 20:15; Status DC Sodium Bicarbonate (Sodium Bicarb Adult 8.4% Syr) 50 meq 1X ONCE IV Last administered on 06/22/19at 20:37; Start 06/22/19 at 19:45; Stop 06/22/19 at 19:57; Status DC Dextrose (Dextrose 50%-Water Syringe) 25 gm 1X ONCE IV Last administered on 06/22/19at 20:37; Start 06/22/19 at 19:45; Stop 06/22/19 at 19:57; Status DC Insulin Human Regular (HumuLIN R VIAL) 10 unit 1X ONCE IV Last administered on 06/22/19at 20:45; Start 06/22/19 at 19:45; Stop 06/22/19 at 19:57; Status DC Calcium Gluconate 1000 mg/Sodium Chloride 110 ml @ 220 mls/hr 1X ONCE IV Last administered on 06/22/19at 20:36; Start 06/22/19 at 20:15; Stop 06/22/19 at 20:44; Status DC Insulin Human Regular 100 unit/ Sodium Chloride 101 ml @ 0 mls/hr CONT PRN IV SEE I/O RECORD Last administered on 07/02/19at 18:55; Start 06/23/19 at 12:15; Stop 07/03/19 at 10:39; Status DC Sodium Phosphate 10 mmol/Magnesium Sulfate 5 meq/ Calcium Gluconate 15 meq/ Multivitamins 10 ml/Chromium/ Copper/Manganese/ Seleni/Zn 0.5 ml/ Insulin Human Regular 10 unit/ Total Parenteral Nutrition/Amino Acids/Dextrose/ Fat Emulsion Intravenous 1,920 ml @ 80 mls/hr TPN CONT IV Last administered on 06/23/19at 22:20; Start 06/23/19 at 22:00; Stop 06/24/19 at 21:59; Status DC Fentanyl Citrate 55 ml @ 1.98 mls/hr CONT PRN IV SEE PROTOCOL Last administered on 07/19/19at 13:09; Start 06/24/19 at 11:45 Sodium Phosphate 10 mmol/Magnesium Sulfate 5 meq/ Calcium Gluconate 15 meq/ Multivitamins 10 ml/Chromium/ Copper/Manganese/ Seleni/Zn 0.5 ml/ Total Parenteral Nutrition/Amino Acids/Dextrose/ Fat Emulsion Intravenous 1,920 ml @ 80 mls/hr TPN CONT IV Last administered on 06/24/19at 22:26; Start 06/24/19 at 22:00; Stop 06/25/19 at 21:59; Status DC Sodium Phosphate 10 mmol/Magnesium Sulfate 5 meq/ Calcium Gluconate 15 meq/ Multivitamins 10 ml/Chromium/ Copper/Manganese/ Seleni/Zn 0.5 ml/ Total Parenteral Nutrition/Amino Acids/Dextrose/ Fat Emulsion Intravenous 1,920 ml @ 80 mls/hr TPN CONT IV Last administered on 06/25/19at 22:27; Start 06/25/19 at 22:00; Stop 06/26/19 at 21:59; Status DC Sodium Phosphate 10 mmol/Magnesium Sulfate 5 meq/ Calcium Gluconate 15 meq/ Multivitamins 10 ml/Chromium/ Copper/Manganese/ Seleni/Zn 0.5 ml/ Total Parenteral Nutrition/Amino Acids/Dextrose/ Fat Emulsion Intravenous 1,920 ml @ 80 mls/hr TPN CONT IV Last administered on 06/26/19at 21:57; Start 06/26/19 at 22:00; Stop 06/27/19 at 21:59; Status DC Furosemide (Lasix) 60 mg 1X ONCE IVP Last administered on 06/26/19at 12:22; Start 06/26/19 at 12:30; Stop 06/26/19 at 12:31; Status DC Dexmedetomidine HCl 400 mcg/ Sodium Chloride 100 ml @ 0 mls/hr CONT PRN IV SEDATION ON VENT Last administered on 07/19/19at 17:59; Start 06/26/19 at 19:00 Sodium Chloride 500 ml @ 500 mls/hr 1X PRN PRN IV SEE COMMENTS; Start 06/26/19 at 19:00 Atropine Sulfate (ATROPINE 0.5mg SYRINGE) 0.5 mg PRN Q5MIN PRN IV SEE COMMENTS; Start 06/26/19 at 19:00 Sodium Bicarbonate (Sodium Bicarb Adult 8.4% Syr) 50 meq 1X ONCE IV ; Start 06/26/19 at 19:30; Stop 06/26/19 at 19:23; Status DC Furosemide (Lasix) 40 mg DAILY IVP Last administered on 07/19/19at 08:42; Start 06/27/19 at 12:00 Propofol 100 ml @ As Directed STK-MED ONCE IV ; Start 06/27/19 at 11:51; Stop 06/27/19 at 11:51; Status DC Propofol 100 ml @ 6.588 mls/ hr CONT PRN IV SEE I/O RECORD Last administered on 07/19/19at 15:55; Start 06/27/19 at 12:00 Sodium Phosphate 10 mmol/Magnesium Sulfate 5 meq/ Calcium Gluconate 15 meq/ Multivitamins 10 ml/Chromium/ Copper/Manganese/ Seleni/Zn 0.5 ml/ Total Parenteral Nutrition/Amino Acids/Dextrose/ Fat Emulsion Intravenous 1,920 ml @ 80 mls/hr TPN CONT IV ; Start 06/27/19 at 22:00; Stop 06/27/19 at 12:55; Status DC Potassium Phosphate 10 mmol/ Magnesium Sulfate 5 meq/Calcium Gluconate 15 meq/ Multivitamins 10 ml/Chromium/ Copper/Manganese/ Seleni/Zn 0.5 ml/ Total Parenteral Nutrition/Amino Acids/Dextrose/ Fat Emulsion Intravenous 1,920 ml @ 80 mls/hr TPN CONT IV Last administered on 06/27/19at 21:38; Start 06/27/19 at 22:00; Stop 06/28/19 at 21:59; Status DC Potassium Chloride/Water 100 ml @ 50 mls/hr 1X ONCE IV Last administered on 06/28/19at 15:00; Start 06/28/19 at 15:00; Stop 06/28/19 at 16:59; Status DC Potassium Phosphate 10 mmol/ Magnesium Sulfate 5 meq/Calcium Gluconate 15 meq/ Multivitamins 10 ml/Chromium/ Copper/Manganese/ Seleni/Zn 0.5 ml/ Potassium Acetate 20 meq/Total Parenteral Nutrition/Amino Acids/Dextrose/ Fat Emulsion Intravenous 1,920 ml @ 80 mls/hr TPN CONT IV Last administered on 06/28/19at 22:14; Start 06/28/19 at 22:00; Stop 06/29/19 at 21:59; Status DC Potassium Chloride/Water 100 ml @ 50 mls/hr 1X ONCE IV Last administered on 06/29/19at 08:57; Start 06/29/19 at 09:00; Stop 06/29/19 at 10:59; Status DC Potassium Phosphate 10 mmol/ Magnesium Sulfate 5 meq/Calcium Gluconate 15 meq/ Multivitamins 10 ml/Chromium/ Copper/Manganese/ Seleni/Zn 0.5 ml/ Potassium Acetate 20 meq/Total Parenteral Nutrition/Amino Acids/Dextrose/ Fat Emulsion Intravenous 1,920 ml @ 80 mls/hr TPN CONT IV Last administered on 06/29/19at 21:32; Start 06/29/19 at 22:00; Stop 06/30/19 at 21:59; Status DC Potassium Phosphate 10 mmol/ Magnesium Sulfate 5 meq/Calcium Gluconate 15 meq/ Multivitamins 10 ml/Chromium/ Copper/Manganese/ Seleni/Zn 0.5 ml/ Potassium Acetate 20 meq/Total Parenteral Nutrition/Amino Acids/Dextrose 1,920 ml @ 80 mls/hr TPN CONT IV Last administered on 06/30/19at 21:38; Start 06/30/19 at 22:00; Stop 07/01/19 at 21:59; Status DC Potassium Phosphate 10 mmol/ Magnesium Sulfate 5 meq/Calcium Gluconate 15 meq/ Multivitamins 10 ml/Chromium/ Copper/Manganese/ Seleni/Zn 0.5 ml/ Potassium Acet ate 10 meq/Total Parenteral Nutrition/Amino Acids/Dextrose 1,920 ml @ 80 mls/hr TPN CONT IV Last administered on 07/01/19at 21:30; Start 07/01/19 at 22:00; Stop 07/02/19 at 21:59; Status DC Potassium Phosphate 10 mmol/ Magnesium Sulfate 5 meq/Calcium Gluconate 15 meq/ Multivitamins 10 ml/Chromium/ Copper/Manganese/ Seleni/Zn 0.5 ml/ Potassium Acetate 10 meq/Total Parenteral Nutrition/Amino Acids/Dextrose 1,920 ml @ 80 mls/hr TPN CONT IV Last administered on 07/02/19at 21:36; Start 07/02/19 at 22:00; Stop 07/03/19 at 21:59; Status DC Daptomycin 520 mg/ Sodium Chloride 50 ml @ 100 mls/hr Q24H IV Last administered on 07/13/19at 09:57; Start 07/03/19 at 10:00; Stop 07/14/19 at 09:26; Status DC Insulin Glargine (Lantus Syringe) 30 unit BID SQ Last administered on 07/19/19at 09:33; Start 07/03/19 at 11:00 Insulin Human Lispro (HumaLOG) 0-9 UNITS Q6HRS SQ Last administered on 07/19/19at 12:04; Start 07/03/19 at 12:00 Dextrose (Dextrose 50%-Water Syringe) 12.5 gm PRN Q15MIN PRN IV SEE COMMENTS; Start 07/03/19 at 10:30 Potassium Acetate 10 meq/Potassium Phosphate 10 mmol/ Magnesium Sulfate 5 meq/Calcium Gluconate 15 meq/ Multivitamins 10 ml/Chromium/ Copper/Manganese/ Seleni/Zn 0.5 ml/ Total Parenteral Nutrition/Amino Acids/Dextrose 1,920 ml @ 80 mls/hr TPN CONT IV Last administered on 07/03/19at 21:26; Start 07/03/19 at 22:00; Stop 07/04/19 at 21:59; Status DC Linezolid/Dextrose 300 ml @ 300 mls/hr Q12HR IV Last administered on 07/19/19at 08:50; Start 07/04/19 at 09:00 Potassium Acetate 10 meq/Potassium Phosphate 10 mmol/ Magnesium Sulfate 5 meq/Calcium Gluconate 15 meq/ Multivitamins 10 ml/Chromium/ Copper/Manganese/ Seleni/Zn 0.5 ml/ Total Parenteral Nutrition/Amino Acids/Dextrose 1,920 ml @ 80 mls/hr TPN CONT IV Last administered on 07/04/19at 21:13; Start 07/04/19 at 22:00; Stop 07/05/19 at 21:59; Status DC Lidocaine HCl (Buffered Lidocaine 1%) 3 ml STK-MED ONCE .ROUTE ; Start 07/04/19 at 14:23; Stop 07/04/19 at 14:23; Status DC Iohexol (Omnipaque 240 Mg/ml) 50 ml STK-MED ONCE .ROUTE ; Start 07/04/19 at 14:23; Stop 07/04/19 at 14:24; Status DC Lidocaine HCl (Buffered Lidocaine 1%) 3 ml 1X ONCE INJ Last administered on 07/04/19at 15:34; Start 07/04/19 at 14:30; Stop 07/04/19 at 14:31; Status DC Iohexol (Omnipaque 240 Mg/ml) 50 ml 1X ONCE IJ Last administered on 07/04/19at 15:33; Start 07/04/19 at 14:30; Stop 07/04/19 at 14:31; Status DC Info (CONTRAST GIVEN -- Rx MONITORING) 1 each PRN DAILY PRN MC SEE COMMENTS; Start 07/04/19 at 14:30; Stop 07/06/19 at 14:29; Status DC Potassium Acetate 10 meq/Potassium Phosphate 10 mmol/ Magnesium Sulfate 5 meq/Calcium Gluconate 15 meq/ Multivitamins 10 ml/Chromium/ Copper/Manganese/ Seleni/Zn 0.5 ml/ Total Parenteral Nutrition/Amino Acids/Dextrose 1,920 ml @ 80 mls/hr TPN CONT IV Last administered on 07/05/19at 20:59; Start 07/05/19 at 22:00; Stop 07/06/19 at 21:59; Status DC Potassium Acetate 10 meq/Potassium Phosphate 10 mmol/ Magnesium Sulfate 5 meq/Calcium Gluconate 15 meq/ Multivitamins 10 ml/Chromium/ Copper/Manganese/ Seleni/Zn 0.5 ml/ Total Parenteral Nutrition/Amino Acids/Dextrose 1,920 ml @ 80 mls/hr TPN CONT IV Last administered on 07/06/19at 22:51; Start 07/06/19 at 22:00; Stop 07/07/19 at 21:59; Status DC Cefepime HCl (Maxipime) 2 gm Q8HRS IVP Last administered on 07/19/19 14:29; Start 07/06/19 at 22:00 Metronidazole 100 ml @ 100 mls/hr Q8HRS IV Last administered on 07/19/19 14:29; Start 07/06/19 at 22:00 Lidocaine HCl (Buffered Lidocaine 1%) 3 ml STK-MED ONCE .ROUTE ; Start 07/07/19 at 10:07; Stop 07/07/19 at 10:07; Status DC Iohexol (Omnipaque 240 Mg/ml) 50 ml STK-MED ONCE .ROUTE ; Start 07/07/19 at 10:07; Stop 07/07/19 at 10:07; Status DC Potassium Acetate 10 meq/Potassium Phosphate 10 mmol/ Magnesium Sulfate 10 meq/Calcium Gluconate 10 meq/ Multivitamins 10 ml/Chromium/ Copper/Manganese/ [place]/Zn 0.5 ml/ Total Parenteral Nutrition/Amino Acids/Dextrose 1,920 ml @ 80 mls/hr TPN CONT IV Last administered on 07/07/19at 21:50; Start 07/07/19 at 22:00; Stop 07/08/19 at 21:59; Status DC Lidocaine HCl (Buffered Lidocaine 1%) 4 ml 1X ONCE IJ Last administered on 07/07/19at 12:50; Start 07/07/19 at 14:00; Stop 07/07/19 at 14:01; Status DC Iohexol (Omnipaque 240 Mg/ml) 10 ml 1X ONCE IJ Last administered on 07/07/19at 12:50; Start 07/07/19 at 14:00; Stop 07/07/19 at 14:01; Status DC Multi-Ingred Cream/Lotion/Oil/ Oint (Artificial Tears Eye Ointment) 1 devorah PRN Q1HR PRN OU DRY EYE; Start 07/08/19 at 10:30 Potassium Acetate 10 meq/Potassium Phosphate 10 mmol/ Magnesium Sulfate 10 meq/Calcium Gluconate 10 meq/ Multivitamins 10 ml/Chromium/ Copper/Manganese/ Seleni/Zn 0.5 ml/ Total Parenteral Nutrition/Amino Acids/Dextrose/ Fat Emulsion Intravenous 1,635 ml @ 68.125 mls/ hr TPN CONT IV Last administered on 07/08/19at 21:47; Start 07/08/19 at 22:00; Stop 07/09/19 at 21:59; Status DC Potassium Acetate 15 meq/Potassium Phosphate 15 mmol/ Magnesium Sulfate 10 meq/Calcium Gluconate 10 meq/ Multivitamins 10 ml/Chromium/ Copper/Manganese/ Seleni/Zn 0.5 ml/ Total Parenteral Nutrition/Amino Acids/Dextrose/ Fat Emulsion Intravenous 1,920 ml @ 80 mls/hr TPN CONT IV Last administered on 07/09/19at 21:39; Start 07/09/19 at 22:00; Stop 07/10/19 at 21:59; Status DC Potassium Acetate 15 meq/Potassium Phosphate 15 mmol/ Magnesium Sulfate 10 meq/Calcium Gluconate 10 meq/ Multivitamins 10 ml/Chromium/ Copper/Manganese/ Seleni/Zn 0.5 ml/ Total Parenteral Nutrition/Amino Acids/Dextrose/ Fat Emulsion Intravenous 1,920 ml @ 80 mls/hr TPN CONT IV Last administered on 07/10/19at 21:48; Start 07/10/19 at 22:00; Stop 07/11/19 at 21:59; Status DC Potassium Acetate 15 meq/Potassium Phosphate 15 mmol/ Magnesium Sulfate 10 meq/Calcium Gluconate 10 meq/ Multivitamins 10 ml/Chromium/ Copper/Manganese/ [place]/Zn 0.5 ml/ Total Parenteral Nutrition/Amino Acids/Dextrose/ Fat Emulsion Intravenous 1,920 ml @ 80 mls/hr TPN CONT IV Last administered on 07/11/19at 21:32; Start 07/11/19 at 22:00; Stop 07/12/19 at 21:59; Status DC Lidocaine HCl (Buffered Lidocaine 1%) 6 ml 1X ONCE INJ Last administered on 07/11/19at 14:00; Start 07/11/19 at 14:00; Stop 07/11/19 at 14:02; Status DC Lidocaine HCl (Buffered Lidocaine 1%) 3 ml STK-MED ONCE .ROUTE ; Start 07/11/19 at 13:56; Stop 07/11/19 at 14:13; Status DC Potassium Acetate 15 meq/Potassium Phosphate 15 mmol/ Magnesium Sulfate 10 meq/Calcium Gluconate 10 meq/ Multivitamins 10 ml/Chromium/ Copper/Manganese/ Seleni/Zn 0.5 ml/ Total Parenteral Nutrition/Amino Acids/Dextrose/ Fat Emulsion Intravenous 1,920 ml @ 80 mls/hr TPN CONT IV Last administered on 07/12/19at 21:39; Start 07/12/19 at 22:00; Stop 07/13/19 at 21:59; Status DC Midazolam HCl 100 mg/Sodium Chloride 100 ml @ 9 mls/hr CONT PRN IV SEE PROTOCOL Last administered on 07/18/19at 00:29; Start 07/13/19 at 15:00 Potassium Acetate 15 meq/Potassium Phosphate 15 mmol/ Magnesium Sulfate 10 meq/Calcium Gluconate 10 meq/ Multivitamins 10 ml/Chromium/ Copper/Manganese/ Seleni/Zn 0.5 ml/ Total Parenteral Nutrition/Amino Acids/Dextrose/ Fat Emulsion Intravenous 1,920 ml @ 80 mls/hr TPN CONT IV Last administered on 07/13/19at 22:17; Start 07/13/19 at 22:00; Stop 07/14/19 at 21:59; Status DC Potassium Acetate 15 meq/Potassium Phosphate 15 mmol/ Magnesium Sulfate 10 meq/Calcium Gluconate 10 meq/ Multivitamins 10 ml/Chromium/ Copper/Manganese/ Seleni/Zn 0.5 ml/ Total Parenteral Nutrition/Amino Acids/Dextrose/ Fat Emulsion Intravenous 1,920 ml @ 80 mls/hr TPN CONT IV Last administered on 07/14/19at 22:16; Start 07/14/19 at 22:00; Stop 07/15/19 at 21:59; Status DC Metoprolol Tartrate (Lopressor Vial) 5 mg PRN Q6HRS PRN IVP TACHYCARDIA; Start 07/15/19 at 12:30 Potassium Acetate 15 meq/Potassium Phosphate 18 mmol/ Magnesium Sulfate 15 meq/Calcium Gluconate 10 meq/ Multivitamins 10 ml/Chromium/ Copper/Manganese/ Seleni/Zn 0.5 ml/ Total Parenteral Nutrition/Amino Acids/Dextrose/ Fat Emulsion Intravenous 1,920 ml @ 80 mls/hr TPN CONT IV Last administered on 07/15/19at 22:10; Start 07/15/19 at 22:00; Stop 07/16/19 at 21:59; Status DC Potassium Acetate 15 meq/Potassium Phosphate 18 mmol/ Magnesium Sulfate 15 meq/Calcium Gluconate 10 meq/ Multivitamins 10 ml/Chromium/ Copper/Manganese/ Seleni/Zn 0.5 ml/ Total Parenteral Nutrition/Amino Acids/Dextrose/ Fat Emulsion Intravenous 1,920 ml @ 80 mls/hr TPN CONT IV Last administered on 07/16/19at 22:08; Start 07/16/19 at 22:00; Stop 07/17/19 at 21:59; Status DC Bisacodyl (Dulcolax Supp) 10 mg 1X ONCE [place] Last administered on 07/16/19at 14:50; Start 07/16/19 at 12:30; Stop 07/16/19 at 12:31; Status DC Sodium Phosphate 15 mmol/Sodium Chloride 105 ml @ 105 mls/hr 1X ONCE IV Last administered on 07/16/19at 12:33; Start 07/16/19 at 14:00; Stop 07/16/19 at 14:59; Status DC Fluconazole/ Sodium Chloride 100 ml @ 100 mls/hr Q24H IV Last administered on 07/18/19at 14:44; Start 07/17/19 at 08:00 Bisacodyl (Dulcolax Supp) 10 mg PRN DAILY PRN [place] CONSTIPATION; Start 07/17/19 at 10:15 Sodium Phosphate 20 mmol/Sodium Chloride 256.6667 ml @ 64.167 m... 1X ONCE IV Last administered on 07/17/19at 14:50; Start 07/17/19 at 14:00; Stop 07/17/19 at 17:59; Status DC Potassium Phosphate 23 mmol/ Magnesium Sulfate 15 meq/Calcium Gluconate 10 meq/ Multivitamins 10 ml/Chromium/ Copper/Manganese/ Seleni/Zn 0.5 ml/ Total Parenteral Nutrition/Amino Acids/Dextrose/ Fat Emulsion Intravenous 1,920 ml @ 80 mls/hr TPN CONT IV Last administered on 07/17/19at 22:20; Start 07/17/19 at 22:00; Stop 07/18/19 at 21:59; Status DC Fentanyl Citrate (Fentanyl 50 Mcg/ ml [employer] Syringe) 2,750 mcg STK-MED ONCE IV ; Start 07/13/19 at 22:45; Stop 07/17/19 at 15:58; Status DC Lidocaine/ Epinephrine (LIDOCAINE 1%-EPI 1:100,000 Multi-Dose) 20 ml STK-MED ONCE .ROUTE ; Start 07/18/19 at 08:20; Stop 07/18/19 at 08:21; Status DC Heparin Sodium (Porcine) (Hep Lock Adult) 500 unit STK-MED ONCE IVP ; Start 07/18/19 at 09:27; Stop 07/18/19 at 09:27; Status DC Lidocaine/ Epinephrine (LIDOCAINE 1%-EPI 1:100,000 Multi-Dose) 5 ml 1X ONCE INJ Last administered on 07/18/19at 09:46; Start 07/18/19 at 09:45; Stop 07/18/19 at 09:46; Status DC Potassium Phosphate 23 mmol/ Magnesium Sulfate 15 meq/Calcium Gluconate 10 meq/ Multivitamins 10 ml/Chromium/ Copper/Manganese/ Seleni/Zn 0.5 ml/ Total Parenteral Nutrition/Amino Acids/Dextrose/ Fat Emulsion Intravenous 1,920 ml @ 80 mls/hr TPN CONT IV Last administered on 07/18/19at 21:48; Start 07/18/19 at 22:00; Stop 07/19/19 at 21:59 Potassium Phosphate 23 mmol/ Magnesium Sulfate 15 meq/Calcium Gluconate 10 meq/ Multivitamins 10 ml/Chromium/ Copper/Manganese/ Seleni/Zn 0.5 ml/ Total Parenteral Nutrition/Amino Acids/Dextrose 1,920 ml @ 80 mls/hr TPN CONT IV ; Start 07/19/19 at 22:00; Stop 07/20/19 at 21:59 Active Scripts Active Vitals/I & O Vital Sign - Last 24 Hours 07/18/19 07/18/19 07/18/19 07/18/19 20:00 20:00 21:00 21:30 Temp 100.7 100.7 Pulse 89 95 Resp 20 20 B/P (MAP) 115/61 (79) 119/61 (80) Pulse Ox 100 100 100 O2 Delivery Mechanical Ventilator Ventilator Ventilator Ventilator 407/18/19 07/19/19 07/19/19 22:00 23:00 00:00 00:00 Temp 99.1 99.1 Pulse 93 92 93 Resp 20 20 20 B/P (MAP) 113/64 (80) 114/61 (78) 109/61 (77) Pulse Ox 100 100 100 O2 Delivery Ventilator Ventilator Ventilator Mechanical Ventilator 07/19/19 07/19/19 07/19/19 07/19/19 00:40 01:00 02:00 03:00 Pulse 95 89 86 Resp 20 20 20 B/P (MAP) 116/64 (81) 127/76 (93) 136/80 (98) Pulse Ox 100 100 100 100 O2 Delivery Ventilator Ventilator Ventilator Ventilator 07/19/19 07/19/19 07/19/19 07/19/19 04:00 04:00 04:50 05:00 Temp 98.8 98.8 Pulse 86 89 Resp 20 B/P (MAP) 123/81 (95) 132/79 (96) Pulse Ox 100 100 100 O2 Delivery Ventilator Mechanical Ventilator Ventilator Ventilator 07/19/19 07/19/19 07/19/19 07/19/19 06:00 07:00 07:44 08:00 Pulse 90 86 85 Resp 20 19 19 B/P (MAP) 124/76 (92) 122/67 (85) 131/81 (98) Pulse Ox 100 100 100 100 O2 Delivery Ventilator Ventilator Ventilator Ventilator 07/19/19 07/19/19 07/19/19 07/19/19 08:00 09:00 10:00 11:00 Temp 99.0 99.0 Pulse 100 100 86 Resp 20 16 16 B/P (MAP) 125/75 (92) 133/72 (92) 119/74 (89) Pulse Ox 100 100 100 O2 Delivery Mechanical Ventilator Ventilator Ventilator Ventilator 07/19/19 07/19/19 07/19/19 07/19/19 11:59 12:00 12:00 13:00 Temp 98.6 98.6 Pulse 85 108 Resp 16 15 B/P (MAP) 123/76 (92) 118/77 (91) Pulse Ox 99 100 100 O2 Delivery Ventilator Mechanical Ventilator Ventilator Ventilator 07/19/19 07/19/19 07/19/19 07/19/19 13:09 13:40 14:00 15:00 Pulse 110 95 Resp 15 15 21 15 B/P (MAP) 139/79 (99) 107/61 (76) Pulse Ox 100 100 100 100 O2 Delivery Ventilator Ventilator Ventilator Ventilator 07/19/19 07/19/19 07/19/19 07/19/19 15:11 16:00 16:00 17:00 Temp 97.7 101.1 97.7 101.1 Pulse 100 120 Resp 16 17 B/P (MAP) 125/78 (94) 145/84 (104) Pulse Ox 100 100 100 O2 Delivery Ventilator Ventilator Mechanical Ventilator Ventilator 07/19/19 07/19/19 18:00 19:00 Pulse 93 87 Resp 15 15 B/P (MAP) 108/66 (80) 99/56 (70) Pulse Ox 95 99 O2 Delivery Ventilator Ventilator Intake and Output 07/18/19 07/18/19 07/19/19 15:00 23:00 07:00 Intake Total 1298.16 ml 150 ml 2622.0 ml Output Total 1915 ml 660 ml 1090 ml Balance -616.84 ml -510 ml 1532.0 ml Hemodynamically unstable?: No Is patient in severe pain?: No Is NPO status required?: Yes BRENDA JONAS MD Jul 19, 2019 19:33
[2019-07-19] MEDS ORDERED: AMINO ACID IV SCH ×7 (22:00)
[2019-07-19] MEDS ORDERED: TOTAL PARENTERAL NUTRITION IV SCH ×7 (22:00)
[2019-07-19] MEDS ORDERED: [UNRECOGNIZED DRUG - OTHER] IV SCH ×7 (22:00)
[2019-07-19] MEDS ORDERED: DEXTROSE 70% IV SCH ×7 (22:00)
[2019-07-20] VITALS (24 sets, daily range): BP systolic 96–120; BP diastolic 54–72
[2019-07-20] MEDS: DEXMEDETOMIDINE 400 MCG in IV NORMAL SALINE 100ML 96 ML IV PRN ×8 (02:20→21:48)
[2019-07-20] MEDS: PROPOFOL 100 ML IV PRN ×6 (03:59→21:51)
[2019-07-20] MEDS: PANTOPRAZOLE IV PUSH 40 MG VIAL. IVP SCH ×2 (06:36→17:13)
[2019-07-20] MEDS: CEFEPIME HCL IV Push 2 GM VIAL. IVP SCH (06:37)
[2019-07-20] MEDS: INSULIN LISPRO 300 UNITS/3 ML VIAL. SQ SCH ×4 (06:38→23:55)
[2019-07-20] MEDS: ENOXAPARIN 40 MG/0.4 ML SYRINGE. SQ SCH (06:39)
[2019-07-20 06:57] LABS: BASO % 0 % (0-3); EOS # 0.1 x10^3/uL (0.0-0.7); EOS % 1 % (0-3); HEMATOCRIT 21.7 % (39.0-53.0); HEMOGLOBIN 7.2 g/dL (13.0-17.5); LYMPH # 1.2 x10^3/uL (1.0-4.8); LYMPH % 13 % (24-48); MEAN CORPUSCULAR HEMOGLOBIN 29 pg (25-35); MEAN CORPUSCULAR HGB CONC 33 g/dL (31-37); MEAN CORPUSCULAR VOLUME 89 fL (79-100); MONO % 11 % (0-9); NEUT # 7.3 x10^3/uL (1.8-7.7); NEUT % 75 % (31-73); PLATELET COUNT 325 x10^3/uL (140-400); RED BLOOD COUNT 2.45 x10^6/uL (4.30-5.70); RED CELL DISTRIBUTION WIDTH 15.8 % (11.5-14.5); WHITE BLOOD COUNT 9.6 x10^3/uL (4.0-11.0)
[2019-07-20] MEDS: ALBUTEROL SULFATE 2.5 MG/3 ML NEBU. NEB SCH ×2 (07:36→20:28)
[2019-07-20] MEDS: fentaNYL HIGH DOSE PCA 55 ML IV PRN (07:41)
[2019-07-20 08:10] LABS: BASE EXCESS ABG 4 mmol/L (-3-3); HCO3 ABG 28 mmol/L (21-28); PCO2 ABG 41 mmHg (35-46); PO2 ABG 94 mmHg (75-108); SAT O2 ABG 97 % (92-99)
[2019-07-20 08:11] LABS: FIO2 ABG 35
[2019-07-20] MEDS: FLUCONAZOLE 200MG/100ML PREMIX 100 ML IV SCH (08:37)
[2019-07-20] MEDS: FUROSEMIDE 40 MG/4 ML VIAL. IVP SCH (09:33)
[2019-07-20] MEDS: INSULIN GLARGINE SYRINGE. SQ SCH ×2 (09:34→21:36)
--- NOTE | 2019-07-20 09:52 | PDOC ---
PULMONARY PROGRESS NOTES Subjective Remains on AVAPS respirator via trach continues to be hard to reduce sedation,safely Vitals Vital Signs Date Time Temp Pulse Resp B/P (MAP) Pulse Ox O2 Delivery O2 Flow Rate FiO2 07/20/19 07:41 15 100 Ventilator 07/20/19 06:00 80 103/64 (77) 07/20/19 04:00 99.8 99.8 Comments trach/sedated Lungs: Clear Cardiovascular: S1, S2 Abdomen: Soft Extremities: Other (edema +1) Labs Laboratory Tests Test 07/18/19 13:16 07/18/19 16:18 07/18/19 20:39 07/19/19 00:19 Glucose (Fingerstick) 202 mg/dL (70-99) 195 mg/dL (70-99) 157 mg/dL (70-99) 143 mg/dL (70-99) Test 07/19/19 06:03 07/19/19 08:57 07/19/19 11:54 07/19/19 18:36 Glucose (Fingerstick) 168 mg/dL (70-99) 167 mg/dL (70-99) 139 mg/dL (70-99) O2 Saturation 98 % (92-99) Arterial Blood pH 7.55 (7.35-7.45) Arterial Blood pCO2 at Patient Temp 30 mmHg (35-46) Arterial Blood pO2 at Patient Temp 131 mmHg (75-108) Arterial Blood HCO3 26 mmol/L (21-28) Arterial Blood Base Excess 3 mmol/L (-3-3) FiO2 35 Test 07/19/19 23:27 07/20/19 05:50 07/20/19 06:30 07/20/19 07:30 Glucose (Fingerstick) 177 mg/dL (70-99) 225 mg/dL (70-99) White Blood Count 9.6 x10^3/uL (4.0-11.0) Red Blood Count 2.45 x10^6/uL (4.30-5.70) Hemoglobin 7.2 g/dL (13.0-17.5) Hematocrit 21.7 % (39.0-53.0) Mean Corpuscular Volume 89 fL (79-100) Mean Corpuscular Hemoglobin 29 pg (25-35) Mean Corpuscular Hemoglobin Concent 33 g/dL (31-37) Red Cell Distribution Width 15.8 % (11.5-14.5) Platelet Count 325 x10^3/uL (140-400) Neutrophils (%) (Auto) 75 % (31-73) Lymphocytes (%) (Auto) 13 % (24-48) Monocytes (%) (Auto) 11 % (0-9) Eosinophils (%) (Auto) 1 % (0-3) Basophils (%) (Auto) 0 % (0-3) Neutrophils # (Auto) 7.3 x10^3/uL (1.8-7.7) Lymphocytes # (Auto) 1.2 x10^3/uL (1.0-4.8) Monocytes # (Auto) 1.0 x10^3/uL (0.0-1.1) Eosinophils # (Auto) 0.1 x10^3/uL (0.0-0.7) Basophils # (Auto) 0.0 x10^3/uL (0.0-0.2) O2 Saturation 97 % (92-99) Arterial Blood pH 7.46 (7.35-7.45) Arterial Blood pCO2 at Patient Temp 41 mmHg (35-46) Arterial Blood pO2 at Patient Temp 94 mmHg (75-108) Arterial Blood HCO3 28 mmol/L (21-28) Arterial Blood Base Excess 4 mmol/L (-3-3) FiO2 35 Laboratory Tests Test 07/19/19 11:54 07/19/19 18:36 07/19/19 23:27 07/20/19 05:50 Glucose (Fingerstick) 167 mg/dL (70-99) 139 mg/dL (70-99) 177 mg/dL (70-99) 225 mg/dL (70-99) Test 07/20/19 06:30 07/20/19 07:30 White Blood Count 9.6 x10^3/uL (4.0-11.0) Red Blood Count 2.45 x10^6/uL (4.30-5.70) Hemoglobin 7.2 g/dL (13.0-17.5) Hematocrit 21.7 % (39.0-53.0) Mean Corpuscular Volume 89 fL (79-100) Mean Corpuscular Hemoglobin 29 pg (25-35) Mean Corpuscular Hemoglobin Concent 33 g/dL (31-37) Red Cell Distribution Width 15.8 % (11.5-14.5) Platelet Count 325 x10^3/uL (140-400) Neutrophils (%) (Auto) 75 % (31-73) Lymphocytes (%) (Auto) 13 % (24-48) Monocytes (%) (Auto) 11 % (0-9) Eosinophils (%) (Auto) 1 % (0-3) Basophils (%) (Auto) 0 % (0-3) Neutrophils # (Auto) 7.3 x10^3/uL (1.8-7.7) Lymphocytes # (Auto) 1.2 x10^3/uL (1.0-4.8) Monocytes # (Auto) 1.0 x10^3/uL (0.0-1.1) Eosinophils # (Auto) 0.1 x10^3/uL (0.0-0.7) Basophils # (Auto) 0.0 x10^3/uL (0.0-0.2) O2 Saturation 97 % (92-99) Arterial Blood pH 7.46 (7.35-7.45) Arterial Blood pCO2 at Patient Temp 41 mmHg (35-46) Arterial Blood pO2 at Patient Temp 94 mmHg (75-108) Arterial Blood HCO3 28 mmol/L (21-28) Arterial Blood Base Excess 4 mmol/L (-3-3) FiO2 35 Medications Active Scripts Medications Dose Route/Sig Max Daily Dose Days Date Category Comments cxr 07/14 reviewed poor insp effort Left basal effusion/ atelectasis CT chest IMPRESSION: Infiltrates with air bronchograms posterior medially at the right lung base without change. Moderate left pleural effusion with atelectasis or infiltrate at the left lung base without significant change. Continued presence of an enlarged edematous pancreas with inflammatory changes in the mesentery consistent with history of necrotic pancreatitis and showing some mild improvement. Continued presence of drainage tubes in the upper abdomen with no significant fluid collections surrounding the tips of these tubes. There is however still some free fluid present in the abdomen abdomen. Soft tissue process anteriorly within the cardiac fat pad which appears slightly more prominent than on previous examination and may reflect an inflammatory process. Impression . IMPRESSION: 1. Acute hypoxemic respiratory failure, multifactorial, 2. Acute gallstone pancreatitis./ Necrosis. s/p Exploratory laparotomy, pancreatic necrosectomy, cholecystostomy tube placement, Gastrostomy placement with jejunal extension, tracheostomy placement (specifically 8 shiley cuffed) 06/21 3. Acute kidney failure. improving 4. Metabolic toxic encephalopathy. 5. Hyperkalemia.corrected 6. Metabolic / respiratory acidosis 7. Hypocalcemia. 8. POSSIBLE ABD COMPARTMENT SYNDROME , s/p Exp lap 9. HEP B S POSITIVE 10. Hypernatremia, resolved 11. LLL small effusion, monitor 12. FEVER PER ID, improvement afebrile the last 48 hours 13. Occlusive thrombus within the cephalic vein no DVT on ultrasound ri Repeat CT Infiltrates with air bronchograms posterior medially at the right lung base without change. Moderate left pleural effusion with atelectasis or infiltrate at the left lung base without significant change. Continued presence of an enlarged edematous pancreas with inflammatory changes in the mesentery consistent with history of necrotic pancreatitis and showing some mild improvement. Continued presence of drainage tubes in the upper abdomen with no significant fluid collections surrounding the tips of these tubes. There is however still some free fluid present in the abdomen abdomen. Soft tissue process anteriorly within the cardiac fat pad which appears slightly more prominent than on previous examination and may reflect an inflammatory process. Plan . Contine AVAPS at current settings, not ready fro CPAP trail 2/2 inability to reduce sedation very difficult to wean sedation. cont. propofol,PRN Par[employer]ytics Antibiotics per ID Any further CT abdomen, will defer to ID and surgery Follow surgery input Nutrition per TPN Monitor Hb DVT GI prophylaxis Plan for LTAC transfer on Sunday. Case Management following to assist Case discussed with TAYA SERRANO MD Jul 20, 2019 09:52
--- NOTE | 2019-07-20 11:24 | PDOC ---
SURGICAL PROGRESS NOTE Subjective no changes on tube feed Vital Signs Vital Signs Date Time Temp Pulse Resp B/P (MAP) Pulse Ox O2 Delivery O2 Flow Rate FiO2 07/20/19 10:00 85 20 100/61 (74) 100 Ventilator 07/20/19 08:00 99.1 99.1 I&O Intake and Output 07/20/19 07:00 Intake Total 3903 ml Output Total 3915 ml Balance -12 ml IV Total 3638 ml Tube Feeding 115 ml Other 150 ml Output Urine Total 3365 ml Gastric Drainage Total 0 ml Drainage Total 550 ml HEENT: Other (trach) Abdomen: Soft, Other (mulitples drains ) Labs Laboratory Tests Test 07/18/19 13:16 07/18/19 16:18 07/18/19 20:39 07/19/19 00:19 Glucose (Fingerstick) 202 mg/dL (70-99) 195 mg/dL (70-99) 157 mg/dL (70-99) 143 mg/dL (70-99) Test 07/19/19 06:03 07/19/19 08:57 07/19/19 11:54 07/19/19 18:36 Glucose (Fingerstick) 168 mg/dL (70-99) 167 mg/dL (70-99) 139 mg/dL (70-99) O2 Saturation 98 % (92-99) Arterial Blood pH 7.55 (7.35-7.45) Arterial Blood pCO2 at Patient Temp 30 mmHg (35-46) Arterial Blood pO2 at Patient Temp 131 mmHg (75-108) Arterial Blood HCO3 26 mmol/L (21-28) Arterial Blood Base Excess 3 mmol/L (-3-3) FiO2 35 Test 07/19/19 23:27 07/20/19 05:50 07/20/19 06:30 07/20/19 07:30 Glucose (Fingerstick) 177 mg/dL (70-99) 225 mg/dL (70-99) White Blood Count 9.6 x10^3/uL (4.0-11.0) Red Blood Count 2.45 x10^6/uL (4.30-5.70) Hemoglobin 7.2 g/dL (13.0-17.5) Hematocrit 21.7 % (39.0-53.0) Mean Corpuscular Volume 89 fL (79-100) Mean Corpuscular Hemoglobin 29 pg (25-35) Mean Corpuscular Hemoglobin Concent 33 g/dL (31-37) Red Cell Distribution Width 15.8 % (11.5-14.5) Platelet Count 325 x10^3/uL (140-400) Neutrophils (%) (Auto) 75 % (31-73) Lymphocytes (%) (Auto) 13 % (24-48) Monocytes (%) (Auto) 11 % (0-9) Eosinophils (%) (Auto) 1 % (0-3) Basophils (%) (Auto) 0 % (0-3) Neutrophils # (Auto) 7.3 x10^3/uL (1.8-7.7) Lymphocytes # (Auto) 1.2 x10^3/uL (1.0-4.8) Monocytes # (Auto) 1.0 x10^3/uL (0.0-1.1) Eosinophils # (Auto) 0.1 x10^3/uL (0.0-0.7) Basophils # (Auto) 0.0 x10^3/uL (0.0-0.2) O2 Saturation 97 % (92-99) Arterial Blood pH 7.46 (7.35-7.45) Arterial Blood pCO2 at Patient Temp 41 mmHg (35-46) Arterial Blood pO2 at Patient Temp 94 mmHg (75-108) Arterial Blood HCO3 28 mmol/L (21-28) Arterial Blood Base Excess 4 mmol/L (-3-3) FiO2 35 Laboratory Tests Test 07/19/19 11:54 07/19/19 18:36 07/19/19 23:27 07/20/19 05:50 Glucose (Fingerstick) 167 mg/dL (70-99) 139 mg/dL (70-99) 177 mg/dL (70-99) 225 mg/dL (70-99) Test 07/20/19 06:30 07/20/19 07:30 White Blood Count 9.6 x10^3/uL (4.0-11.0) Red Blood Count 2.45 x10^6/uL (4.30-5.70) Hemoglobin 7.2 g/dL (13.0-17.5) Hematocrit 21.7 % (39.0-53.0) Mean Corpuscular Volume 89 fL (79-100) Mean Corpuscular Hemoglobin 29 pg (25-35) Mean Corpuscular Hemoglobin Concent 33 g/dL (31-37) Red Cell Distribution Width 15.8 % (11.5-14.5) Platelet Count 325 x10^3/uL (140-400) Neutrophils (%) (Auto) 75 % (31-73) Lymphocytes (%) (Auto) 13 % (24-48) Monocytes (%) (Auto) 11 % (0-9) Eosinophils (%) (Auto) 1 % (0-3) Basophils (%) (Auto) 0 % (0-3) Neutrophils # (Auto) 7.3 x10^3/uL (1.8-7.7) Lymphocytes # (Auto) 1.2 x10^3/uL (1.0-4.8) Monocytes # (Auto) 1.0 x10^3/uL (0.0-1.1) Eosinophils # (Auto) 0.1 x10^3/uL (0.0-0.7) Basophils # (Auto) 0.0 x10^3/uL (0.0-0.2) O2 Saturation 97 % (92-99) Arterial Blood pH 7.46 (7.35-7.45) Arterial Blood pCO2 at Patient Temp 41 mmHg (35-46) Arterial Blood pO2 at Patient Temp 94 mmHg (75-108) Arterial Blood HCO3 28 mmol/L (21-28) Arterial Blood Base Excess 4 mmol/L (-3-3) FiO2 35 Problem List Problems Medical Problems: (1) Acute pancreatitis Status: Acute (2) Nausea & vomiting Status: Acute Assessment/Plan supportive care MAXIMILIANO GREENBERG APRN Jul 20, 2019 11:24
[2019-07-20] MEDS: TPN PER PHARMACY MC PRN (12:36)
--- NOTE | 2019-07-20 12:36 | NUR ---
Pharmacy TPN Dosing Note S: CHRISTOPHER NEWSOME is a 49 year old M Currently receiving Central Continuous TPN started 06/19/19 B:Pertinent PMH: PANCREATITIS Height: 5 feet, 9 inches Weight: 108.0 kg Current diet: NPO LABS: Sodium: 138 Potassium: 4.3 Chloride: 105 Calcium: 8.0 Corrected Calcium: 10.32 Magnesium: 1.9 CO2: 29 SCr: 0.9 Glucose: 139-225 Albumin: 1.1 AST: 58 ALT: 45 TPN FORMULA: TPN TYPE: Central Continuous AMINO ACIDS: 145 gm DEXTROSE: 285 gm POTASSIUM PHOSPHATE: 23 mmol MAGNESIUM: 15 mEq CALCIUM: 10 mEq MULTIPLE VITAMIN: 10 ml TRACE ELEMENTS: 0.5 ml(s) TPN PLAN: No labs. Cont w/ current TPN. -BMP, Phos and Mag in AM R: Continue TPN as yesterday. Will monitor electrolytes, glucose, and tolerance to TPN. JULIA SALGADO FORMERLY [facility], 07/20/19 [id number]
--- NOTE | 2019-07-20 12:58 | PDOC ---
Infectious Disease Note Subjective: Subjective remains febrile stable Trach FiO2 35% Sedated as he gets agitated very easily Vital Signs: Vital Signs Vital Signs Date Time Temp Pulse Resp B/P (MAP) Pulse Ox O2 Delivery O2 Flow Rate FiO2 07/20/19 12:00 101.1 87 15 102/58 (73) 100 Ventilator 101.1 Physical Exam: PHYSICAL EXAM GENERAL: Sedated, trached/vent, HEENT: Pupils equal reactive NECK: Trach LUNGS: Diminished aeration bases HEART: S1, S2, regular ABDOMEN: Distended, bowel sounds quiet, multiple drains, wound vac in place : [place] in place EXTREMITIES: 1+ edema, no cyanosis. SCDs bilaterally SKIN: Warm, moist. 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 SCENIC ARTIST: Sedated Tunnelled RIJ (07/16) clean. Medications: Inpatient Meds: Current Medications Medications (Trade) Dose Ordered Sig/Jesse Start Time Stop Time Status Last Admin Dose Admin Acetaminophen (Tylenol Supp) 650 mg PRN Q6HRS PRN 06/14/19 20:00 07/19/19 17:25 650 MG Albumin Human 500 ml @ As Directed STK-MED ONCE 06/22/19 13:25 06/22/19 13:25 DC Albuterol Sulfate (Ventolin Neb Soln) 2.5 mg RTQID 06/22/19 08:00 07/20/19 07:36 2.5 MG Amino Acids/ Electrolytes/ Dextrose 1,000 ml @ 80 mls/hr [id number] 06/12/19 10:15 06/18/19 13:50 DC Amino Acids/ Glycerin/ Electrolytes 1,000 ml @ 80 mls/hr [id number] 06/12/19 10:00 UNV Atropine Sulfate (ATROPINE 0.5mg SYRINGE) 0.5 mg PRN Q5MIN PRN 06/26/19 19:00 Bisacodyl (Dulcolax Supp) 10 mg PRN DAILY PRN 07/17/19 10:15 Calcium Chloride 2000 mg/Sodium Chloride 120 ml @ 240 mls/hr PRN QID PRN 06/14/19 10:15 06/15/19 09:58 DC 06/15/19 08:32 240 MLS/HR Calcium Gluconate (Calcium Gluconate) 1,000 mg 1X ONCE 06/22/19 19:45 3/8/20 20:15 DC Calcium Gluconate 1000 mg/Sodium Chloride 110 ml @ 220 mls/hr 1X ONCE 06/22/19 20:15 06/22/19 20:44 DC 06/22/19 20:36 220 MLS/HR Calcium Gluconate 5000 mg/Sodium Chloride 250 ml @ 28.782 mls/ hr CONT PRN 06/15/19 09:30 06/18/19 13:50 DC 06/18/19 06:12 28.782 MLS/HR Calcium Gluconate 39284 mg/Sodium Chloride 494 ml @ 4.051 mls/ hr CONT PRN 06/15/19 09:30 06/15/19 09:23 DC Cefepime HCl (Maxipime) 2 gm Q8HRS 07/06/19 22:00 07/20/19 06:37 2 GM Cefoxitin Sodium (Mefoxin) 2 gm 1X PREOP ONCE 06/22/19 11:30 06/22/19 11:31 DC 06/22/19 11:37 2 GM Cellulose (Surgicel Hemostat 4x8) 1 each STK-MED ONCE 06/22/19 12:46 06/22/19 14:25 DC 06/22/19 12:46 1 EACH Chlorhexidine Gluconate (Peridex) 15 ml BID 06/14/19 21:00 07/01/19 16:34 DC 06/30/19 20:47 15 ML Daptomycin 520 mg/ Sodium Chloride 50 ml @ 100 mls/hr Q24H 07/03/19 10:00 07/14/19 09:26 DC 07/13/19 09:57 100 MLS/HR Dexamethasone Sodium Phosphate (Decadron) 4 mg STK-MED ONCE 06/22/19 11:45 06/22/19 11:45 DC Dexmedetomidine HCl 400 mcg/ Sodium Chloride 100 ml @ 0 mls/hr CONT PRN 06/26/19 19:00 07/20/19 12:25 32.6 MLS/HR Dextrose (Dextrose 50%-Water Syringe) 12.5 gm PRN Q15MIN PRN 07/03/19 10:30 Enoxaparin Sodium (Lovenox 40mg Syringe) 40 mg Q24H 06/23/19 06:00 07/20/19 06:39 40 MG Etomidate (Amidate) 14 mg 1X ONCE 06/14/19 13:00 06/14/19 13:01 DC 06/14/19 12:59 14 MG Fentanyl Citrate (Fentanyl 2ml Vial) 100 mcg 1X ONCE 06/14/19 13:00 06/14/19 13:01 DC 06/14/19 12:58 100 MCG Fentanyl Citrate (Fentanyl 50 Mcg/ ml CONCEPT ARTIST Syringe) 2,750 mcg STK-MED ONCE 07/13/19 22:45 07/17/19 15:58 DC Fentanyl Citrate (Fentanyl 600 Mcg/30 ml CONCEPT ARTIST) 600 mcg STK-MED ONCE 06/15/19 05:30 06/18/19 12:07 DC Fluconazole/ Sodium Chloride 100 ml @ 100 mls/hr Q24H 07/17/19 08:00 07/20/19 08:37 100 MLS/HR Furosemide (Lasix) 40 mg DAILY 06/27/19 12:00 07/20/19 09:33 40 MG Heparin Sodium (Porcine) (Hep Lock Adult) 500 unit STK-MED ONCE 07/18/19 09:27 07/18/19 09:27 DC Hydralazine HCl (Apresoline Inj) 10 mg PRN Q4HRS PRN 06/19/19 11:45 07/15/19 07:33 10 MG Hydromorphone HCl (Dilaudid) 1 mg PRN Q2HRS PRN 06/11/19 12:00 07/15/19 07:36 1 MG Info (CONTRAST GIVEN -- Rx MONITORING) 1 each PRN DAILY PRN 07/04/19 14:30 07/06/19 14:29 DC Info (PHARMACY MONITORING -- do not chart) 1 each PRN DAILY PRN 06/14/19 09:00 06/14/19 09:06 DC Info (Tpn Per Pharmacy) 1 each PRN DAILY PRN 06/19/19 11:15 07/20/19 12:36 1 EACH Insulin Glargine (Lantus Syringe) 30 unit BID 07/03/19 11:00 07/20/19 09:34 30 UNIT Insulin Human Lispro (HumaLOG) 0-9 UNITS Q6HRS 07/03/19 12:00 07/20/19 11:55 4 UNITS Insulin Human Regular (HumuLIN R VIAL) 10 unit 1X ONCE 06/22/19 19:45 06/22/19 19:57 DC 06/22/19 20:45 10 UNIT Insulin Human Regular 100 unit/ Sodium Chloride 101 ml @ 0 mls/hr CONT PRN 06/23/19 12:15 07/03/19 10:39 DC 07/02/19 18:55 2 MLS/HR Iohexol (Omnipaque 240 Mg/ml) 10 ml 1X ONCE 07/07/19 14:00 07/07/19 14:01 DC 07/07/19 12:50 10 ML Iohexol (Omnipaque 300 Mg/ml) 75 ml 1X ONCE 06/22/19 08:00 06/22/19 08:01 Cancel Iohexol (Omnipaque 350 Mg/ml) 100 ml 1X ONCE 06/11/19 04:45 06/11/19 04:46 DC 06/11/19 05:01 100 ML Labetalol HCl (Normodyne Iv Push) 20 mg PRN Q2HR PRN 06/19/19 11:45 06/26/19 14:44 20 MG Lidocaine HCl (Buffered Lidocaine 1%) 3 ml STK-MED ONCE 07/11/19 13:56 07/11/19 14:13 DC Lidocaine HCl (Lidocaine Pf 2% Vial) 5 ml STK-MED ONCE 06/14/19 12:00 06/17/19 10:37 DC Lidocaine/ Epinephrine (LIDOCAINE 1%-EPI 1:100,000 Multi-Dose) 5 ml 1X ONCE 07/18/19 09:45 07/18/19 09:46 DC 07/18/19 09:46 5 ML Linezolid/Dextrose 300 ml @ 300 mls/hr Q12HR 07/04/19 09:00 07/20/19 09:36 300 MLS/HR Lorazepam (Ativan Inj) 1 mg PRN Q6HRS PRN 06/11/19 18:15 07/20/19 08:30 1 MG Magnesium Sulfate 50 ml @ 25 mls/hr PRN DAILY PRN 06/14/19 10:30 07/15/19 08:52 25 MLS/HR Meropenem 500 mg/ Sodium Chloride 50 ml @ 100 mls/hr Q6HRS 06/18/19 07:30 07/06/19 15:00 DC 07/06/19 12:12 100 MLS/HR Metoprolol Tartrate (Lopressor Vial) 5 mg PRN Q6HRS PRN 07/15/19 12:30 Metronidazole 100 ml @ 100 mls/hr Q8HRS 07/06/19 22:00 07/20/19 06:37 100 MLS/HR Micafungin Sodium 100 mg/Dextrose 100 ml @ 100 mls/hr Q24H 06/20/19 09:00 07/07/19 09:51 DC 07/07/19 08:19 100 MLS/HR Midazolam HCl (Versed) 5 mg 1X ONCE 06/14/19 13:00 06/14/19 13:01 DC 06/14/19 12:59 5 MG Midazolam HCl 100 mg/Sodium Chloride 100 ml @ 9 mls/hr CONT PRN 07/13/19 15:00 07/18/19 00:29 9 MLS/HR Midazolam HCl 50 mg/Sodium Chloride 50 ml @ 0 mls/hr CONT PRN 06/14/19 12:45 07/13/19 14:59 DC 07/13/19 10:19 9 MLS/HR Morphine Sulfate (Morphine Sulfate) 1 mg PRN Q1HR PRN 06/22/19 15:45 07/15/19 08:48 1 MG Multi-Ingred Cream/Lotion/Oil/ Oint (Artificial Tears Eye Ointment) 1 devorah PRN Q1HR PRN 07/08/19 10:30 Naloxone HCl (Narcan) 0.4 mg PRN Q2MIN PRN 06/22/19 15:45 07/15/19 07:58 0.4 MG Nicardipine HCl 50 mg/Sodium Chloride 250 ml @ 25 mls/hr CONT PRN 06/18/19 11:45 07/13/19 15:06 DC Norepinephrine Bitartrate 8 mg/ Dextrose 258 ml @ 20.027 mls/ hr CONT PRN 06/14/19 10:30 06/14/19 10:31 20.027 MLS/HR Nystatin (Nystop) 1 devorah PRN QID PRN 06/11/19 23:15 06/11/19 23:19 1 DEVORAH Ondansetron HCl (Zofran) 4 mg PRN Q6HRS PRN 06/22/19 15:45 Pantoprazole Sodium (PROTONIX VIAL for IV PUSH) 40 mg [id number] 06/13/19 21:00 07/20/19 06:36 40 MG Piperacillin Sod/ Tazobactam Sod (Zosyn Per Pharmacy) 1 each PRN DAILY PRN 06/12/19 13:15 06/12/19 19:16 DC Piperacillin Sod/ Tazobactam Sod 2.25 gm/Sodium Chloride 50 ml @ 100 mls/hr Q6HRS 06/12/19 13:30 06/12/19 19:15 DC 06/12/19 13:48 100 MLS/HR Potassium Chloride/Water 100 ml @ 50 mls/hr 1X ONCE 06/29/19 09:00 06/29/19 10:59 DC 06/29/19 08:57 50 MLS/HR Potassium Phosphate 10 mmol/ Magnesium Sulfate 5 meq/Calcium Gluconate 15 meq/ Multivitamins 10 ml/Chromium/ Copper/Manganese/ Seleni/Zn 0.5 ml/ Potassium Acetate 10 meq/Total Parenteral Nutrition/Amino Acids/Dextrose 1,920 ml @ 80 mls/hr TPN CONT 07/02/19 22:00 07/03/19 21:59 DC 07/02/19 21:36 80 MLS/HR Potassium Phosphate 10 mmol/ Magnesium Sulfate 5 meq/Calcium Gluconate 15 meq/ Multivitamins 10 ml/Chromium/ Copper/Manganese/ Seleni/Zn 0.5 ml/ Potassium Acetate 20 meq/Total Parenteral Nutrition/Amino Acids/Dextrose 1,920 ml @ 80 mls/hr TPN CONT 06/30/19 22:00 07/01/19 21:59 DC 06/30/19 21:38 80 MLS/HR Potassium Phosphate 10 mmol/ Magnesium Sulfate 5 meq/Calcium Gluconate 15 meq/ Multivitamins 10 ml/Chromium/ Copper/Manganese/ Seleni/Zn 0.5 ml/ Potassium Acetate 20 meq/Total Parenteral Nutrition/Amino Acids/Dextrose/ Fat Emulsion Intravenous 1,920 ml @ 80 mls/hr TPN CONT 06/29/19 22:00 06/30/19 21:59 DC 06/29/19 21:32 80 MLS/HR Potassium Phosphate 10 mmol/ Magnesium Sulfate 5 meq/Calcium Gluconate 15 meq/ Multivitamins 10 ml/Chromium/ Copper/Manganese/ Seleni/Zn 0.5 ml/ Total Parenteral Nutrition/Amino Acids/Dextrose/ Fat Emulsion Intravenous 1,920 ml @ 80 mls/hr TPN CONT 06/27/19 22:00 06/28/19 21:59 DC 06/27/19 21:38 80 MLS/HR Potassium Phosphate 13.6 mmol/Calcium Gluconate 20 meq/ Multivitamins 10 ml/Chromium/ Copper/Manganese/ Seleni/Zn 0.5 ml/ Insulin Human Regular 10 unit/ Total Parenteral Nutrition/Amino Acids/Dextrose/ Fat Emulsion Intravenous 1,920 ml @ 80 mls/hr TPN CONT 06/21/19 22:00 06/22/19 21:59 DC 06/21/19 21:31 80 MLS/HR Potassium Phosphate 13.6 mmol/Magnesium Sulfate 10 meq/ Calcium Gluconate 20 meq/ Multivitamins 10 ml/Chromium/ Copper/Manganese/ Seleni/Zn 0.5 ml/ Total Parenteral Nutrition/Amino Acids/Dextrose/ Fat Emulsion Intravenous 1,920 ml @ 80 mls/hr TPN CONT 06/19/19 22:00 06/20/19 21:59 DC 06/19/19 21:31 80 MLS/HR Potassium Phosphate 13.6 mmol/Magnesium Sulfate 5 meq/ Calcium Gluconate 20 meq/ Multivitamins 10 ml/Chromium/ Copper/Manganese/ Seleni/Zn 0.5 ml/ Total Parenteral Nutrition/Amino Acids/Dextrose/ Fat Emulsion Intravenous 1,920 ml @ 80 mls/hr TPN CONT 06/22/19 22:00 06/23/19 21:59 DC 06/22/19 22:14 80 MLS/HR Potassium Phosphate 23 mmol/ Magnesium Sulfate 15 meq/Calcium Gluconate 10 meq/ Multivitamins 10 ml/Chromium/ Copper/Manganese/ Seleni/Zn 0.5 ml/ Total Parenteral Nutrition/Amino Acids/Dextrose 1,920 ml @ 80 mls/hr TPN CONT 07/20/19 22:00 07/21/19 21:59 Potassium Phosphate 23 mmol/ Magnesium Sulfate 15 meq/Calcium Gluconate 10 meq/ Multivitamins 10 ml/Chromium/ Copper/Manganese/ Seleni/Zn 0.5 ml/ Total Parenteral Nutrition/Amino Acids/Dextrose/ Fat Emulsion Intravenous 1,920 ml @ 80 mls/hr TPN CONT 07/18/19 22:00 07/19/19 21:59 DC 07/18/19 21:48 80 MLS/HR Potassium Acetate 10 meq/Potassium Phosphate 10 mmol/ Magnesium Sulfate 5 meq/Calcium Gluconate 15 meq/ Multivitamins 10 ml/Chromium/ Copper/Manganese/ Seleni/Zn 0.5 ml/ Total Parenteral Nutrition/Amino Acids/Dextrose 1,920 ml @ 80 mls/hr TPN CONT 07/06/19 22:00 07/07/19 21:59 DC 07/06/19 22:51 80 MLS/HR Potassium Acetate 10 meq/Potassium Phosphate 10 mmol/ Magnesium Sulfate 10 meq/Calcium Gluconate 10 meq/ Multivitamins 10 ml/Chromium/ Copper/Manganese/ Seleni/Zn 0.5 ml/ Total Parenteral Nutrition/Amino Acids/Dextrose 1,920 ml @ 80 mls/hr TPN CONT 07/07/19 22:00 07/08/19 21:59 DC 07/07/19 21:50 80 MLS/HR Potassium Acetate 10 meq/Potassium Phosphate 10 mmol/ Magnesium Sulfate 10 meq/Calcium Gluconate 10 meq/ Multivitamins 10 ml/Chromium/ Copper/Manganese/ Seleni/Zn 0.5 ml/ Total Parenteral Nutrition/Amino Acids/Dextrose/ Fat Emulsion Intravenous 1,635 ml @ 68.125 mls/ hr TPN CONT 07/08/19 22:00 07/09/19 21:59 DC 07/08/19 21:47 68.125 MLS/HR Potassium Acetate 15 meq/Potassium Phosphate 15 mmol/ Magnesium Sulfate 10 meq/Calcium Gluconate 10 meq/ Multivitamins 10 ml/Chromium/ Copper/Manganese/ Seleni/Zn 0.5 ml/ Total Parenteral Nutrition/Amino Acids/Dextrose/ Fat Emulsion Intravenous 1,920 ml @ 80 mls/hr TPN CONT 07/14/19 22:00 07/15/19 21:59 DC 07/14/19 22:16 80 MLS/HR Potassium Acetate 15 meq/Potassium Phosphate 18 mmol/ Magnesium Sulfate 15 meq/Calcium Gluconate 10 meq/ Multivitamins 10 ml/Chromium/ Copper/Manganese/ Seleni/Zn 0.5 ml/ Total Parenteral Nutrition/Amino Acids/Dextrose/ Fat Emulsion Intravenous 1,920 ml @ 80 mls/hr TPN CONT 07/16/19 22:00 07/17/19 21:59 DC 07/16/19 22:08 80 MLS/HR Prochlorperazine Edisylate (Compazine) 10 mg PRN Q8HRS PRN 06/11/19 12:00 06/12/19 14:59 10 MG Propofol 100 ml @ 6.588 mls/ hr CONT PRN 06/27/19 12:00 07/20/19 10:42 32.94 MLS/HR Ringer's Solution 1,000 ml @ 100 mls/hr Q10H 06/22/19 15:39 06/24/19 17:46 DC 06/23/19 22:06 100 MLS/HR Rocuronium [place] (Zemuron) 50 mg STK-MED ONCE 06/22/19 14:52 06/22/19 14:52 DC Sevoflurane (Ultane) 90 ml STK-MED ONCE 06/22/19 13:53 06/22/19 13:53 DC Sodium Bicarbonate 50 meq/Sodium Chloride 1,050 ml @ 150 mls/hr Q7H 06/12/19 11:00 06/13/19 14:48 DC 06/13/19 04:16 150 MLS/HR Sodium Bicarbonate (Sodium Bicarb Adult 8.4% Syr) 50 meq 1X ONCE 06/26/19 19:30 06/26/19 19:23 DC Sodium Chloride 500 ml @ 500 mls/hr 1X PRN PRN 06/26/19 19:00 Sodium Chloride (Normal Saline Flush) 3 ml QSHIFT PRN 06/22/19 15:45 Sodium Phosphate 10 mmol/Magnesium Sulfate 5 meq/ Calcium Gluconate 15 meq/ Multivitamins 10 ml/Chromium/ Copper/Manganese/ Seleni/Zn 0.5 ml/ Insulin Human Regular 10 unit/ Total Parenteral Nutrition/Amino Acids/Dextrose/ Fat Emulsion Intravenous 1,920 ml @ 80 mls/hr TPN CONT 06/23/19 22:00 06/24/19 21:59 DC 06/23/19 22:20 80 MLS/HR Sodium Phosphate 10 mmol/Magnesium Sulfate 5 meq/ Calcium Gluconate 15 meq/ Multivitamins 10 ml/Chromium/ Copper/Manganese/ Seleni/Zn 0.5 ml/ Total Parenteral Nutrition/Amino Acids/Dextrose/ Fat Emulsion Intravenous 1,920 ml @ 80 mls/hr TPN CONT 06/27/19 22:00 06/27/19 12:55 DC Sodium Phosphate 15 mmol/Sodium Chloride 105 ml @ 105 mls/hr 1X ONCE 07/16/19 14:00 07/16/19 14:59 DC 07/16/19 12:33 105 MLS/HR Sodium Phosphate 20 mmol/Sodium Chloride 256.6667 ml @ 64.167 m... 1X ONCE 07/17/19 14:00 07/17/19 17:59 DC 07/17/19 14:50 64.167 MLS/HR Succinylcholine Chloride (Anectine) 200 mg 1X ONCE 06/14/19 13:00 06/14/19 13:01 DC 06/14/19 12:59 200 MG Vecuronium [place] 50 mg/ Miscellaneous 50 ml @ 4.925 mls/ hr CONT PRN 06/22/19 15:00 06/25/19 05:19 4.925 MLS/HR Labs: Lab Laboratory Tests Test 07/19/19 18:36 07/19/19 23:27 07/20/19 05:50 07/20/19 06:30 Glucose (Fingerstick) 139 mg/dL (70-99) 177 mg/dL (70-99) 225 mg/dL (70-99) White Blood Count 9.6 x10^3/uL (4.0-11.0) Red Blood Count 2.45 x10^6/uL (4.30-5.70) Hemoglobin 7.2 g/dL (13.0-17.5) Hematocrit 21.7 % (39.0-53.0) Mean Corpuscular Volume 89 fL (79-100) Mean Corpuscular Hemoglobin 29 pg (25-35) Mean Corpuscular Hemoglobin Concent 33 g/dL (31-37) Red Cell Distribution Width 15.8 % (11.5-14.5) Platelet Count 325 x10^3/uL (140-400) Neutrophils (%) (Auto) 75 % (31-73) Lymphocytes (%) (Auto) 13 % (24-48) Monocytes (%) (Auto) 11 % (0-9) Eosinophils (%) (Auto) 1 % (0-3) Basophils (%) (Auto) 0 % (0-3) Neutrophils # (Auto) 7.3 x10^3/uL (1.8-7.7) Lymphocytes # (Auto) 1.2 x10^3/uL (1.0-4.8) Monocytes # (Auto) 1.0 x10^3/uL (0.0-1.1) Eosinophils # (Auto) 0.1 x10^3/uL (0.0-0.7) Basophils # (Auto) 0.0 x10^3/uL (0.0-0.2) Test 07/20/19 07:30 07/20/19 11:38 O2 Saturation 97 % (92-99) Arterial Blood pH 7.46 (7.35-7.45) Arterial Blood pCO2 at Patient Temp 41 mmHg (35-46) Arterial Blood pO2 at Patient Temp 94 mmHg (75-108) Arterial Blood HCO3 28 mmol/L (21-28) Arterial Blood Base Excess 4 mmol/L (-3-3) FiO2 35 Glucose (Fingerstick) 194 mg/dL (70-99) Objective: Assessment: Fever cult neg so far Leukocytosis resolved Gallbladder stone pancreatitis s/p expl lap, pancreatic necrosectomy, cholecystostomy tube placement, G-tube placement with jejunal extension, 06/21 Loculated fluid collection along the anterior aspect of the pancreas measures 3.0 x 2.6 cm and fluid collection along the inferior aspect of the stomach measures 9.6 x 4.0 cm, on CT 06/21 Sepsis from GI - cult neg Acute Resp failure - s/p trach 06/21 Lactic acidosis. Acute kidney injury previously requiring dialysis - now with improved UOP, HDC (06/13) still in place Metabolic acidosis. Hypocalcemia Plan: Plan of Care DC Cefepime/Flagyl (07/05), Zyvox (07/03) and Fluconazole (07/16) start merrem and micafungin UA and UC BC neg from 07/16 Maintain aspiration precaution. Gen surgery following, consider repeat imaging CBC in am Critically ill D/W THUY MARTIN MD Jul 20, 2019 12:58
[2019-07-20] MEDS: IV NORMAL SALINE 1000ML BAG 1,000 ML IV SCH (14:24)
[2019-07-20 14:47] LABS: BILIRUBIN,URINE SMALL (NEG); CLARITY,URINE CLEAR; NITRITE,URINE NEGATIVE (NEG); PROTEIN,URINE 100 mg/dL (NEG-TRACE); UROBILINOGEN,URINE 0.2 mg/dL (0.2 mg/dL)
[2019-07-20 14:51] LABS: COLOR,URINE DK YELLOW
[2019-07-20 14:54] LABS: BACTERIA,URINE 0 /HPF (0-FEW); RBC,URINE 20-40 /HPF (0-2); WBC,URINE RARE /HPF (0-4)
[2019-07-20] MEDS: DAPTOmycin (GENERIC) IVPB 510 MG in IV NORMAL SALINE 50ML 50 ML IV SCH (16:08)
[2019-07-20] MEDS: MEROPENEM 500 MG in IV NORMAL SALINE 50ML 50 ML IV SCH ×2 (17:14→23:46)
--- NOTE | 2019-07-20 18:00 | NUR ---
using ativan q 6hours to assist in sedating pt on ventilator. at 1600 pt became diaphoretic. temperature checked. reading of 98.6 orally. urine culture sent to lab. right chest dl pcc dressing changed and caps changed and flushed. spoke with pts today.
[2019-07-20] MEDS ORDERED: DEXTROSE 70% IV SCH ×7 (22:00)
[2019-07-20] MEDS ORDERED: AMINO ACID IV SCH ×7 (22:00)
[2019-07-20] MEDS ORDERED: [UNRECOGNIZED DRUG - OTHER] IV SCH ×7 (22:00)
[2019-07-20] MEDS ORDERED: TOTAL PARENTERAL NUTRITION IV SCH ×7 (22:00)
[2019-07-21] VITALS (23 sets, daily range): BP systolic 96–150; BP diastolic 58–87
[2019-07-21] MEDS: PROPOFOL 100 ML IV PRN ×8 (00:03→23:18)
[2019-07-21] MEDS: DEXMEDETOMIDINE 400 MCG in IV NORMAL SALINE 100ML 96 ML IV PRN ×9 (00:09→22:05)
--- NOTE | 2019-07-21 05:08 | RAD ---
EXAM: CHEST ONE VIEW. HISTORY: Shortness of breath. COMPARISON: 07/18/2019. FINDINGS: A frontal view of the chest is obtained. A tracheostomy appliance is in expected position. A right internal jugular central venous catheter has its tip in the superior cavoatrial junction. Bibasilar atelectasis is better aerated but the inspiration remains small. There are mild perihilar interstitial opacities. A small left pleural effusion is suspected. There is no pneumothorax. The heart is not enlarged. IMPRESSION: 1. Mild pulmonary edema. Aeration is improved but the inspiration remains small. Electronically signed by: Jasson Burroughs MD (07/21/2019 5:05 AM) [facility]
[2019-07-21] MEDS: PANTOPRAZOLE IV PUSH 40 MG VIAL. IVP SCH ×2 (05:56→17:22)
[2019-07-21] MEDS: ENOXAPARIN 40 MG/0.4 ML SYRINGE. SQ SCH (05:56)
[2019-07-21] MEDS: MEROPENEM 500 MG in IV NORMAL SALINE 50ML 50 ML IV SCH ×3 (05:56→17:23)
[2019-07-21] MEDS: fentaNYL HIGH DOSE PCA 55 ML IV PRN (05:57)
[2019-07-21] MEDS: INSULIN LISPRO 300 UNITS/3 ML VIAL. SQ SCH ×3 (05:57→17:26)
[2019-07-21 06:40] LABS: CALCIUM 7.6 mg/dL (8.5-10.1); CREATININE 0.8 mg/dL (0.7-1.3); GFR 124.3; MAGNESIUM 1.6 mg/dL (1.8-2.4); PHOSPHORUS 2.4 mg/dL (2.6-4.7)
[2019-07-21] MEDS: ALBUTEROL SULFATE 2.5 MG/3 ML NEBU. NEB SCH ×4 (07:21→19:10)
[2019-07-21 07:44] LABS: HEMATOCRIT 23.7 % (39.0-53.0); HEMOGLOBIN 7.6 g/dL (13.0-17.5); RED BLOOD COUNT 2.66 x10^6/uL (4.30-5.70); RED CELL DISTRIBUTION WIDTH 15.9 % (11.5-14.5); WHITE BLOOD COUNT 10.9 x10^3/uL (4.0-11.0)
[2019-07-21] MEDS ORDERED: MAGNESIUM SULFATE 2GM 50 ML IV ONE ×2 (08:00→12:00)
[2019-07-21] MEDS: FUROSEMIDE 40 MG/4 ML VIAL. IVP SCH (08:12)
[2019-07-21] MEDS: INSULIN GLARGINE SYRINGE. SQ SCH (08:13)
[2019-07-21 08:25] LABS: BASE EXCESS ABG 6 mmol/L (-3-3); HCO3 ABG 29 mmol/L (21-28); PCO2 ABG 40 mmHg (35-46); PO2 ABG 78 mmHg (75-108); SAT O2 ABG 95 % (92-99)
[2019-07-21 08:27] LABS: FIO2 ABG 35
--- NOTE | 2019-07-21 08:58 | PDOC ---
PROGRESS NOTES Chief Complaint Chief Complaint Severe pancreatitis with the following surgery: Exploratory laparotomy, pancreatic necrosectomy, cholecystostomy tube placement, Gastrostomy placement with jejunal extension, tracheostomy placement (specifically 8 shiley cuffed) Acute hypoxemic respiratory failure, multifactorial. Status post tracheostomy 5 drains Acute gallstone pancreatitis./ Necrosis Acute kidney failure. improving Metabolic toxic encephalopathy. Hyperkalemia.corrected Metabolic / respiratory acidosis Hypocalcemia. Hepatitis B Hypernatremia LLL small effusion, monitor Plan: continue vent support unable to do trials due to agitation discussed with pulmonary senior recruitment consultant at bedside quite poor prognosis. reassess in the am History of Present Illness History of Present Illness 07/21/2019 Patient clinically stable and able to be moved to [facility] if bed available discussed with pulmonary senior recruitment consultant and regulatory consultant also agrees with transfer to [facility] 07/20/2019 No acute events reported overnight, case discussed with nursing staff patient in no acute distress during my visit 07/19/2019 at bedside. Patient being weaned off his sedation and he is moving all his extremities especially the upper extremities. Patient quite debilitated and with signs of atrophy as expected from his prolonged hospital stay. Discussed with at bedside. Reassurance has been provided all of her concerns were addressed to the best of my abilities. Discussed with RN at bedside 07/18/2019 Patient continues on sedation, discussed with RN and regulatory consultant. We need to try to wean off sedation at this point since the patient remains pretty much status quo. Will discuss with pulmonary senior recruitment consultant plan of care. 07/17/2019 no changes compared to yesterday unable to wean off sedation due to agitation according to nursing staff quite the conundrum, may have to address end of life with 07/16/2019 critically stable still getting very agitated if sedation wears off no other acute events reported overnight. [id number] Patient seen and examined in the ICU He remains critically ill on the vent He is on pressure control 32/5 with 40% FiO2 His Deacon is present Chart reviewed Discussed with RN He is extremely critically ill and I'm concerned about his long-term prognosis [id number] Patient seen and examined in the ICU He remains extremely critically ill Intubated On pressure control 32 with 5 of PEEP 500 tidal volume rate of 20 and 40% FiO2 Sedated On TPN Discussed with RN Chart reviewed [id number] Patient seen and examined in the ICU his is present Discussed with RN Chart reviewed The patient actually open his eyes and tried to look at me? [id number] Patient seen and examined in the ICU He remains intubated and mechanically ventilated Extremely critically ill On TPN Versed Precedex and fentanyl Vent settings before meals//40% Discussed with ambulatory nurse and RN Chart reviewed [id number] Patient seen and examined in the ICU Currently getting a sponge bath Got a great view of his abdomen He has a total of 7 different drains and/or catheters Still mechanically ventilated Off of pressors Sedated Periodically can open his eyes Still very critically ill Chart reviewed Discussed with RNs [id number] Patient seen and examined in the intensive care unit He remains mechanically ventilated Before meals//40% Extremely critically ill He has 4 or 5 drains in including GJ tube Discussed with RN Chart reviewed [id number] Patient seen and examined in the ICU He is still mechanically ventilated assist-control/ with 40% Chart reviewed Discussed with RN He remains very critically ill [id number] Patient seen and examined in the ICU Discussed with general surgeon and he examined the patient with me Patient's is present in his good support for him Currently still intubated and on the vent He is on assist control with 40% oxygen Remains very critically ill Mr Mata is a 49 yo M admitted with severe epigastric pain beginning in the morning of admission. Ultimately diagnosed with gallstone pancreatitis. Hemodialysis catheter placed for renal failure. Arterial blood gas revealed a pH of 7.30, PaCO2 of 31, PaO2 of 75, bicarb was 15. Consulted ID, GI, General surgery, nephrology, pulmonology 06/21: Ex-lap with pancreatic necrosectomy, cholecystectomy, gastrostomy tube lpacement, tracheostomy placement. 06/22 - 06/26: Has 5 abdominal drains plus a Lobato and an NG to suction, intubated, sedated, paralyzed 06/28- 07/02: remain on micafungin, TPN. Trached on vent, sedated, 40% FiO2 07/03: His dialysis catheter and central line were removed. Ventilated via trach and sedated 07/04: Sedated on precedex. ABG reviewed, stable. Vitals stable, drains stable, still requiring ventilation on trach. Hb 7.6. TAG 1170 changed from propofol to versed for sedation 07/06 reposition G-tube. Overnight sedated. Still febrile. More comfortable on versed for sedation. Hb 7, 1u PRBC ordered. plan: Trend CBC Vitals Vitals Vital Signs Date Time Temp Pulse Resp B/P (MAP) Pulse Ox O2 Delivery O2 Flow Rate FiO2 07/21/19 07:40 Mechanical Ventilator 07/21/19 07:22 99 07/21/19 07:00 100.4 87 29 104/62 (76) 100.4 Physical Exam Physical Exam GENERAL: Sedated, trached/vent, HEENT: Pupils equal reactive NECK: Trach LUNGS: Diminished aeration bases HEART: S1, S2, regular ABDOMEN: Distended, bowel sounds quiet, multiple drains, wound vac in place : Lobato in place EXTREMITIES: 1+ edema, no cyanosis. SCDs bilaterally SKIN: Warm, moist. 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 General: Other (sedated) Heart: Regular rate, Normal S1, Normal S2, No murmurs, Gallops Lungs: Clear Abdomen: Soft, Other (mulitples drains ) Extremities: No clubbing, No cyanosis, No edema, Normal pulses, No tendern ess/swelling Skin: No significant lesion Labs LABS Laboratory Tests Test 07/20/19 11:38 07/20/19 14:35 07/20/19 17:38 07/20/19 21:17 Glucose (Fingerstick) 194 mg/dL (70-99) 197 mg/dL (70-99) 201 mg/dL (70-99) Urine Collection Type U cath Urine Color Dk yellow Urine Clarity Clear Urine pH 6.0 (<5.0-8.0) Urine Specific [place] 1.020 (1.000-1.030) Urine Protein 100 mg/dL (NEG-TRACE) Urine Glucose (UA) Negative mg/dL (NEG) Urine Ketones (Stick) Negative mg/dL (NEG) Urine Blood Moderate (NEG) Urine Nitrite Negative (NEG) Urine Bilirubin Small (NEG) Urine Urobilinogen Dipstick 0.2 mg/dL (0.2 mg/dL) Urine Leukocyte Esterase Trace (NEG) Urine RBC 20-40 /HPF (0-2) Urine WBC Rare /HPF (0-4) Urine Bacteria 0 /HPF (0-FEW) Urine Mucus Slight /LPF Test 07/20/19 23:50 07/21/19 05:20 07/21/19 05:45 07/21/19 07:20 Glucose (Fingerstick) 231 mg/dL (70-99) 191 mg/dL (70-99) White Blood Count 10.9 x10^3/uL (4.0-11.0) Red Blood Count 2.66 x10^6/uL (4.30-5.70) Hemoglobin 7.6 g/dL (13.0-17.5) Hematocrit 23.7 % (39.0-53.0) Mean Corpuscular Volume 89 fL (79-100) Mean Corpuscular Hemoglobin 29 pg (25-35) Mean Corpuscular Hemoglobin Concent 32 g/dL (31-37) Red Cell Distribution Width 15.9 % (11.5-14.5) Platelet Count 364 x10^3/uL (140-400) Sodium Level 138 mmol/L (136-145) Potassium Level 4.0 mmol/L (3.5-5.1) Chloride Level 102 mmol/L (98-107) Carbon Dioxide Level 28 mmol/L (21-32) Anion Gap 8 (6-14) Blood Urea Nitrogen 20 mg/dL (8-26) Creatinine 0.8 mg/dL (0.7-1.3) Estimated GFR (Cockcroft-Gault) 124.3 Glucose Level 182 mg/dL (70-99) Lactic Acid Level 2.2 mmol/L (0.4-2.0) Calcium Level 7.6 mg/dL (8.5-10.1) Phosphorus Level 2.4 mg/dL (2.6-4.7) Magnesium Level 1.6 mg/dL (1.8-2.4) O2 Saturation 95 % (92-99) Arterial Blood pH 7.49 (7.35-7.45) Arterial Blood pCO2 at Patient Temp 40 mmHg (35-46) Arterial Blood pO2 at Patient Temp 78 mmHg (75-108) Arterial Blood HCO3 29 mmol/L (21-28) Arterial Blood Base Excess 6 mmol/L (-3-3) FiO2 35 Assessment and Plan Assessmemt and Plan Problems Medical Problems: (1) Acute pancreatitis Status: Acute (2) Nausea & vomiting Status: Acute Comment Review of Relevant I have reviewed the following items alexandra (where applicable) has been applied. Labs Laboratory Tests Test 07/19/19 08:57 07/19/19 11:54 07/19/19 18:36 07/19/19 23:27 O2 Saturation 98 % (92-99) Arterial Blood pH 7.55 (7.35-7.45) Arterial Blood pCO2 at Patient Temp 30 mmHg (35-46) Arterial Blood pO2 at Patient Temp 131 mmHg (75-108) Arterial Blood HCO3 26 mmol/L (21-28) Arterial Blood Base Excess 3 mmol/L (-3-3) FiO2 35 Glucose (Fingerstick) 167 mg/dL (70-99) 139 mg/dL (70-99) 177 mg/dL (70-99) Test 07/20/19 05:50 07/20/19 06:30 07/20/19 07:30 07/20/19 11:38 Glucose (Fingerstick) 225 mg/dL (70-99) 194 mg/dL (70-99) White Blood Count 9.6 x10^3/uL (4.0-11.0) Red Blood Count 2.45 x10^6/uL (4.30-5.70) Hemoglobin 7.2 g/dL (13.0-17.5) Hematocrit 21.7 % (39.0-53.0) Mean Corpuscular Volume 89 fL (79-100) Mean Corpuscular Hemoglobin 29 pg (25-35) Mean Corpuscular Hemoglobin Concent 33 g/dL (31-37) Red Cell Distribution Width 15.8 % (11.5-14.5) Platelet Count 325 x10^3/uL (140-400) Neutrophils (%) (Auto) 75 % (31-73) Lymphocytes (%) (Auto) 13 % (24-48) Monocytes (%) (Auto) 11 % (0-9) Eosinophils (%) (Auto) 1 % (0-3) Basophils (%) (Auto) 0 % (0-3) Neutrophils # (Auto) 7.3 x10^3/uL (1.8-7.7) Lymphocytes # (Auto) 1.2 x10^3/uL (1.0-4.8) Monocytes # (Auto) 1.0 x10^3/uL (0.0-1.1) Eosinophils # (Auto) 0.1 x10^3/uL (0.0-0.7) Basophils # (Auto) 0.0 x10^3/uL (0.0-0.2) O2 Saturation 97 % (92-99) Arterial Blood pH 7.46 (7.35-7.45) Arterial Blood pCO2 at Patient Temp 41 mmHg (35-46) Arterial Blood pO2 at Patient Temp 94 mmHg (75-108) Arterial Blood HCO3 28 mmol/L (21-28) Arterial Blood Base Excess 4 mmol/L (-3-3) FiO2 35 Test 07/20/19 14:35 07/20/19 17:38 07/20/19 21:17 07/20/19 23:50 Urine Collection Type U cath Urine Color Dk yellow Urine Clarity Clear Urine pH 6.0 (<5.0-8.0) Urine Specific [place] 1.020 (1.000-1.030) Urine Protein 100 mg/dL (NEG-TRACE) Urine Glucose (UA) Negative mg/dL (NEG) Urine Ketones (Stick) Negative mg/dL (NEG) Urine Blood Moderate (NEG) Urine Nitrite Negative (NEG) Urine Bilirubin Small (NEG) Urine Urobilinogen Dipstick 0.2 mg/dL (0.2 mg/dL) Urine Leukocyte Esterase Trace (NEG) Urine RBC 20-40 /HPF (0-2) Urine WBC Rare /HPF (0-4) Urine Bacteria 0 /HPF (0-FEW) Urine Mucus Slight /LPF Glucose (Fingerstick) 197 mg/dL (70-99) 201 mg/dL (70-99) 231 mg/dL (70-99) Test 07/21/19 05:20 07/21/19 05:45 07/21/19 07:20 Glucose (Fingerstick) 191 mg/dL (70-99) White Blood Count 10.9 x10^3/uL (4.0-11.0) Red Blood Count 2.66 x10^6/uL (4.30-5.70) Hemoglobin 7.6 g/dL (13.0-17.5) Hematocrit 23.7 % (39.0-53.0) Mean Corpuscular Volume 89 fL (79-100) Mean Corpuscular Hemoglobin 29 pg (25-35) Mean Corpuscular Hemoglobin Concent 32 g/dL (31-37) Red Cell Distribution Width 15.9 % (11.5-14.5) Platelet Count 364 x10^3/uL (140-400) Sodium Level 138 mmol/L (136-145) Potassium Level 4.0 mmol/L (3.5-5.1) Chloride Level 102 mmol/L (98-107) Carbon Dioxide Level 28 mmol/L (21-32) Anion Gap 8 (6-14) Blood Urea Nitrogen 20 mg/dL (8-26) Creatinine 0.8 mg/dL (0.7-1.3) Estimated GFR (Cockcroft-Gault) 124.3 Glucose Level 182 mg/dL (70-99) Lactic Acid Level 2.2 mmol/L (0.4-2.0) Calcium Level 7.6 mg/dL (8.5-10.1) Phosphorus Level 2.4 mg/dL (2.6-4.7) Magnesium Level 1.6 mg/dL (1.8-2.4) O2 Saturation 95 % (92-99) Arterial Blood pH 7.49 (7.35-7.45) Arterial Blood pCO2 at Patient Temp 40 mmHg (35-46) Arterial Blood pO2 at Patient Temp 78 mmHg (75-108) Arterial Blood HCO3 29 mmol/L (21-28) Arterial Blood Base Excess 6 mmol/L (-3-3) FiO2 35 Laboratory Tests Test 07/20/19 11:38 07/20/19 14:35 07/20/19 17:38 07/20/19 21:17 Glucose (Fingerstick) 194 mg/dL (70-99) 197 mg/dL (70-99) 201 mg/dL (70-99) Urine Collection Type U cath Urine Color Dk yellow Urine Clarity Clear Urine pH 6.0 (<5.0-8.0) Urine Specific [place] 1.020 (1.000-1.030) Urine Protein 100 mg/dL (NEG-TRACE) Urine Glucose (UA) Negative mg/dL (NEG) Urine Ketones (Stick) Negative mg/dL (NEG) Urine Blood Moderate (NEG) Urine Nitrite Negative (NEG) Urine Bilirubin Small (NEG) Urine Urobilinogen Dipstick 0.2 mg/dL (0.2 mg/dL) Urine Leukocyte Esterase Trace (NEG) Urine RBC 20-40 /HPF (0-2) Urine WBC Rare /HPF (0-4) Urine Bacteria 0 /HPF (0-FEW) Urine Mucus Slight /LPF Test 07/20/19 23:50 07/21/19 05:20 07/21/19 05:45 07/21/19 07:20 Glucose (Fingerstick) 231 mg/dL (70-99) 191 mg/dL (70-99) White Blood Count 10.9 x10^3/uL (4.0-11.0) Red Blood Count 2.66 x10^6/uL (4.30-5.70) Hemoglobin 7.6 g/dL (13.0-17.5) Hematocrit 23.7 % (39.0-53.0) Mean Corpuscular Volume 89 fL (79-100) Mean Corpuscular Hemoglobin 29 pg (25-35) Mean Corpuscular Hemoglobin Concent 32 g/dL (31-37) Red Cell Distribution Width 15.9 % (11.5-14.5) Platelet Count 364 x10^3/uL (140-400) Sodium Level 138 mmol/L (136-145) Potassium Level 4.0 mmol/L (3.5-5.1) Chloride Level 102 mmol/L (98-107) Carbon Dioxide Level 28 mmol/L (21-32) Anion Gap 8 (6-14) Blood Urea Nitrogen 20 mg/dL (8-26) Creatinine 0.8 mg/dL (0.7-1.3) Estimated GFR (Cockcroft-Gault) 124.3 Glucose Level 182 mg/dL (70-99) Lactic Acid Level 2.2 mmol/L (0.4-2.0) Calcium Level 7.6 mg/dL (8.5-10.1) Phosphorus Level 2.4 mg/dL (2.6-4.7) Magnesium Level 1.6 mg/dL (1.8-2.4) O2 Saturation 95 % (92-99) Arterial Blood pH 7.49 (7.35-7.45) Arterial Blood pCO2 at Patient Temp 40 mmHg (35-46) Arterial Blood pO2 at Patient Temp 78 mmHg (75-108) Arterial Blood HCO3 29 mmol/L (21-28) Arterial Blood Base Excess 6 mmol/L (-3-3) FiO2 35 Microbiology 07/17/19 Blood Culture - Preliminary, Resulted NO GROWTH AFTER 3 DAYS 07/11/19 Aerobic and Anaerobic Culture - Final, Complete 07/11/19 Anaerobic Culture Result 1 (CARINE) - Final, Complete 07/11/19 Aerobic Culture - Final, Complete 07/11/19 Aerobic Culture Result 1 (CARINE) - Final, Complete 07/11/19 Gram Stain - Final, Complete 07/11/19 Gram Stain Result 1 (CARINE) - Final, Complete 07/11/19 Gram Stain Result 2 (CARINE) - Final, Complete 07/04/19 - Final, Complete 07/04/19 - Final, Complete 07/04/19 - Final, Complete 07/04/19 Gram Stain Evaluation - Final, Complete 07/04/19 Sputum Culture - Final, Complete 07/04/19 Sputum Result 1 - Final, Complete 07/03/19 Aerobic Culture - Final, Complete 07/03/19 Aerobic Culture Result 1 (CARINE) - Final, Complete 07/03/19 Gram Stain - Final, Complete 07/03/19 Gram Stain Result 1 (CARINE) - Final, Complete 07/03/19 Gram Stain Result 2 (CARINE) - Final, Complete Medications Current Medications Morphine Sulfate (Morphine Sulfate) 4 mg PRN Q15MIN PRN IV/SQ PAIN GREATER THAN 3/10 Last administered on 06/11/19at 04:58; Start 06/11/19 at 04:30; Stop 06/11/19 at 16:47; Status DC Sodium Chloride 1,000 ml @ 1,000 mls/hr Q1H IV Last administered on 06/11/19at 04:34; Start 06/11/19 at 04:30; Stop 06/11/19 at 05:29; Status DC Ondansetron HCl (Zofran) 4 mg 1X ONCE IV Last administered on 06/11/19at 04:33; Start 06/11/19 at 04:30; Stop 06/11/19 at 04:33; Status DC Iohexol (Omnipaque 350 Mg/ml) 100 ml 1X ONCE IV Last administered on 06/11/19at 05:01; Start 06/11/19 at 04:45; Stop 06/11/19 at 04:46; Status DC Info (CONTRAST GIVEN -- Rx MONITORING) 1 each PRN DAILY PRN MC SEE COMMENTS; Start 06/11/19 at 04:45; Stop 06/13/19 at 04:44; Status DC Fentanyl Citrate (Fentanyl 2ml Vial) 100 mcg [facility] ONCE .ROUTE ; Start 06/11/19 at 04:42; Stop 06/11/19 at 04:42; Status DC Fentanyl Citrate (Fentanyl 2ml Vial) 50 mcg 1X ONCE IVP Last administered on 06/11/19at 04:45; Start 06/11/19 at 05:00; Stop 06/11/19 at 05:01; Status DC Ondansetron HCl (Zofran) 4 mg PRN Q8HRS PRN IV NAUSEA/VOMITING Last administered on 06/12/19at 03:29; Start 06/11/19 at 05:45; Stop 06/12/19 at 05:44; Status DC Morphine Sulfate (Morphine Sulfate) 4 mg PRN Q2HR PRN IV PAIN Last administered on 06/11/19at 07:37; Start 06/11/19 at 05:45; Stop 06/11/19 at 11:54; Status DC Sodium Chloride 1,000 ml @ 150 mls/hr Q6H40M IV Last administered on 06/12/19at 03:28; Start 06/11/19 at 05:45; Stop 06/12/19 at 11:01; Status DC Hydromorphone HCl (Dilaudid) 0.5 mg PRN Q3HRS PRN IV PAIN Last administered on 06/11/19at 08:38; Start 06/11/19 at 05:45; Stop 06/11/19 at 09:12; Status DC Potassium Chloride/Water 100 ml @ 100 mls/hr Q1H IV Last administered on 06/11/19at 08:41; Start 06/11/19 at 06:00; Stop 06/11/19 at 07:59; Status DC Hydromorphone HCl (Dilaudid) 1 mg PRN Q3HRS PRN IV PAIN Last administered on 06/11/19at 09:29; Start 06/11/19 at 09:15; Stop 06/11/19 at 11:54; Status DC Prochlorperazine Edisylate (Compazine) 10 mg PRN Q8HRS PRN IV NAUSEA/VOMITING, 2ND CHOICE Last administered on 06/12/19at 14:59; Start 06/11/19 at 12:00 Hydromorphone HCl (Dilaudid) 1 mg PRN Q2HRS PRN IV SEVERE PAIN Last administered on 07/15/19at 07:36; Start 06/11/19 at 12:00 Pantoprazole Sodium (PROTONIX VIAL for IV PUSH) 40 mg DAILYAC IVP Last administered on 06/12/19at 08:29; Start 06/11/19 at 15:00; Stop 06/12/19 at 16:23; Status DC Lorazepam (Ativan Inj) 1 mg PRN Q6HRS PRN IVP ANXIETY / AGITATION Last administered on 07/21/19at 01:51; Start 06/11/19 at 18:15; Stop 07/21/19 at 08:31; Status DC Hydralazine HCl (Apresoline Inj) 10 mg PRN Q6HRS PRN IVP ELEVATED BP, SEE COMMENTS Last administered on 06/18/19at 09:32; Start 06/11/19 at 18:15; Stop 06/21/19 at 09:12; Status DC Nystatin (Nystop) 1 devorah PRN QID PRN TP FUNGAL RASH Last administered on 06/11/19at 23:19; Start 06/11/19 at 23:15 Sodium Chloride 1,000 ml @ 1,000 mls/hr 1X ONCE IV Last administered on 06/12/19at 05:27; Start 06/12/19 at 06:00; Stop 06/12/19 at 06:59; Status DC Sodium Chloride 1,000 ml @ 1,000 mls/hr 1X ONCE IV Last administered on 06/12/19at 05:25; Start 06/12/19 at 05:00; Stop 06/12/19 at 05:59; Status DC Sodium Chloride 1,000 ml @ 200 mls/hr Q5H IV Last administered on 06/12/19at 06:36; Start 06/12/19 at 07:00; Stop 06/12/19 at 11:01; Status DC Sodium Bicarbonate 50 meq/Sodium Chloride 1,050 ml @ 150 mls/hr Q7H IV Last administered on 06/13/19at 04:16; Start 06/12/19 at 11:00; Stop 06/13/19 at 14:48; Status DC Amino Acids/ Glycerin/ Electrolytes 1,000 ml @ 80 mls/hr [id number] IV ; Start 06/12/19 at 10:00; Status UNV Amino Acids/ Electrolytes/ Dextrose 1,000 ml @ 80 mls/hr [id number] IV ; Start 06/12/19 at 10:15; Stop 06/18/19 at 13:50; Status DC Piperacillin Sod/ Tazobactam Sod (Zosyn Per Pharmacy) 1 each PRN DAILY PRN MC SEE COMMENTS; Start 06/12/19 at 13:15; Stop 06/12/19 at 19:16; Status DC Piperacillin Sod/ Tazobactam Sod 2.25 gm/Sodium Chloride 50 ml @ 100 mls/hr Q6HRS IV Last administered on 06/12/19at 13:48; Start 06/12/19 at 13:30; Stop 06/12/19 at 19:15; Status DC Sodium Bicarbonate (Sodium Bicarb Adult 8.4% Syr) 50 meq 1X ONCE IV Last administered on 06/12/19at 16:12; Start 06/12/19 at 16:00; Stop 06/12/19 at 16:0 1; Status DC Calcium Gluconate 1000 mg/Sodium Chloride 110 ml @ 220 mls/hr 1X ONCE IV Last administered on 06/12/19at 16:13; Start 06/12/19 at 16:00; Stop 06/12/19 at 16:29; Status DC Dextrose (Dextrose 50%-Water Syringe) 25 gm 1X ONCE IV Last administered on 06/12/19at 16:13; Start 06/12/19 at 16:00; Stop 06/12/19 at 16:01; Status DC Insulin Human Regular (HumuLIN R VIAL) 10 unit 1X ONCE IV Last administered on 06/12/19at 16:14; Start 06/12/19 at 16:00; Stop 06/12/19 at 16:01; Status DC Furosemide (Lasix) 40 mg 1X ONCE IVP Last administered on 06/12/19at 16:13; Start 06/12/19 at 16:00; Stop 06/12/19 at 16:01; Status DC Pantoprazole Sodium (PROTONIX VIAL for IV PUSH) 40 mg [id number] IVP Last administered on 06/13/19at 06:21; Start 06/12/19 at 18:00; Stop 06/13/19 at 18:49; Status DC Meropenem 500 mg/ Sodium Chloride 50 ml @ 100 mls/hr Q12HR IV Last administered on 06/17/19at 20:59; Start 06/12/19 at 21:00; Stop 06/18/19 at 07:26; Status DC Calcium Gluconate 1000 mg/Sodium Chloride 110 ml @ 220 mls/hr 1X ONCE IV Last administered on 06/12/19at 20:35; Start 06/12/19 at 19:15; Stop 06/12/19 at 19:44; Status DC Lidocaine HCl (Buffered Lidocaine 1%) 3 ml STK-MED ONCE .ROUTE ; Start 06/13/19 at 08:47; Stop 06/13/19 at 08:47; Status DC Lidocaine HCl (Buffered Lidocaine 1%) 6 ml 1X ONCE INJ Last administered on 06/13/19at 09:23; Start 06/13/19 at 09:30; Stop 06/13/19 at 09:31; Status DC Insulin Human Lispro (HumaLOG) 0-7 UNITS TIDWMEALS SQ Last administered on 06/13/19at 12:14; Start 06/13/19 at 12:00; Stop 06/14/19 at 23:29; Status DC Dextrose (Dextrose 50%-Water Syringe) 12.5 gm PRN Q15MIN PRN IV SEE COMMENTS; Start 06/13/19 at 11:15; Stop 06/14/19 at 23:29; Status DC Insulin Human Regular 100 unit/ Sodium Chloride 101 ml @ 0 mls/hr CONT PRN IV SEE I/O RECORD Last administered on 06/13/19at 15:03; Start 06/13/19 at 14:15; Stop 06/21/19 at 12:37; Status DC Sodium Chloride 1,000 ml @ 1,000 mls/hr Q1H PRN IV hypotension; Start 06/13/19 at 14:00; Stop 06/13/19 at 19:59; Status DC Sodium Chloride 1,000 ml @ 400 mls/hr Q2H30M PRN IV PATENCY; Start 06/13/19 at 14:00; Stop 06/14/19 at 01:59; Status DC Info (PHARMACY MONITORING -- do not chart) 1 each PRN DAILY PRN MC SEE COMMENTS; Start 06/13/19 at 14:45; Stop 06/13/19 at 14:51; Status DC Info (PHARMACY MONITORING -- do not chart) 1 each PRN DAILY PRN MC SEE COMMENTS; Start 06/13/19 at 14:45; Stop 06/27/19 at 12:33; Status DC Pantoprazole Sodium (PROTONIX VIAL for IV PUSH) 40 mg [id number] IVP Last administered on 07/21/19at 05:56; Start 06/13/19 at 21:00 Dexmedetomidine HCl 400 mcg/ Sodium Chloride 100 ml @ 0 mls/hr CONT PRN IV PER PROTOCOL Last administered on 06/21/19at 05:52; Start 06/13/19 at 19:00; Stop 06/21/19 at 19:39; Status DC Sodium Chloride 500 ml @ 500 mls/hr 1X PRN PRN IV SEE COMMENTS; Start 06/13/19 at 19:00; Stop 07/05/19 at 08:01; Status DC Atropine Sulfate (ATROPINE 0.5mg SYRINGE) 0.5 mg PRN Q5MIN PRN IV SEE COMMENTS; Start 06/13/19 at 19:00; Stop 06/27/19 at 12:28; Status DC Sodium Chloride 1,000 ml @ 1,000 mls/hr Q1H PRN IV hypotension; Start 06/14/19 at 08:55; Stop 06/14/19 at 14:54; Status DC Albumin Human 200 ml @ 200 mls/hr 1X PRN PRN IV Hypotension Last administered on 06/14/19at 09:40; Start 06/14/19 at 09:00; Stop 06/14/19 at 14:59; Status DC Sodium Chloride 1,000 ml @ 400 mls/hr Q2H30M PRN IV PATENCY; Start 06/14/19 at 08:55; Stop 06/14/19 at 20:54; Status DC Info (PHARMACY MONITORING -- do not chart) 1 each PRN DAILY PRN MC SEE COMMENTS; Start 06/14/19 at 09:00; Stop 06/14/19 at 09:06; Status DC Info (PHARMACY MONITORING -- do not chart) 1 each PRN DAILY PRN MC SEE COMMENTS; Start 06/14/19 at 09:00; Stop 06/14/19 at 09:06; Status DC Calcium Chloride 2000 mg/Sodium Chloride 120 ml @ 240 mls/hr PRN QID PRN IV for CALCIUM < 5.8 Last administered on 06/15/19at 08:32; Start 06/14/19 at 10:15; Stop 06/15/19 at 09:58; Status DC Magnesium Sulfate 50 ml @ 25 mls/hr PRN DAILY PRN IV for Mag < 1.7 on am labs Last administered on 07/15/19at 08:52; Start 06/14/19 at 10:30 Norepinephrine Bitartrate 8 mg/ Dextrose 258 ml @ 20.027 mls/ hr CONT PRN IV PER PROTOCOL Last administered on 06/14/19at 10:31; Start 06/14/19 at 10:30 Succinylcholine Chloride (Anectine) 200 mg STK-MED ONCE .ROUTE ; Start 06/14/19 at 12:22; Stop 06/14/19 at 12:23; Status DC Etomidate (Amidate) 20 mg STK-MED ONCE IV ; Start 06/14/19 at 12:22; Stop 06/14/19 at 12:23; Status DC Fentanyl Citrate 30 ml @ 0 mls/hr CONT PRN IV SEE PROTOCOL Last administered on 06/19/19at 08:10; Start 06/14/19 at 12:45; Stop 06/19/19 at 11:00; Status DC Chlorhexidine Gluconate (Peridex) 15 ml BID MM Last administered on 06/30/19at 20:47; Start 06/14/19 at 21:00; Stop 07/01/19 at 16:34; Status DC Midazolam HCl 50 mg/Sodium Chloride 50 ml @ 0 mls/hr CONT PRN IV SEE PROTOCOL Last administered on 07/13/19at 10:19; Start 06/14/19 at 12:45; Stop 07/13/19 at 14:59; Status DC Midazolam HCl (Versed) 5 mg STK-MED ONCE .ROUTE ; Start 06/14/19 at 12:48; Stop 06/14/19 at 12:48; Status DC Fentanyl Citrate (Fentanyl 2ml Vial) 100 mcg STK-MED ONCE .ROUTE ; Start 06/14/19 at 12:48; Stop 06/14/19 at 12:48; Status DC Midazolam HCl (Versed) 5 mg 1X ONCE IV Last administered on 06/14/19at 12:59; Start 06/14/19 at 13:00; Stop 06/14/19 at 13:01; Status DC Fentanyl Citrate (Fentanyl 2ml Vial) 100 mcg 1X ONCE IM Last administered on 06/14/19at 12:58; Start 06/14/19 at 13:00; Stop 06/14/19 at 13:01; Status DC Succinylcholine Chloride (Anectine) 200 mg 1X ONCE IV Last administered on at 12:59; Start 06/14/19 at 13:00; Stop 06/14/19 at 13:01; Status DC Etomidate (Amidate) 14 mg 1X ONCE IV Last administered on 06/14/19at 12:59; Start 06/14/19 at 13:00; Stop 06/14/19 at 13:01; Status DC Acetaminophen (Tylenol Supp) 650 mg PRN Q6HRS PRN NM MILD PAIN / TEMP Last administered on 07/19/19at 17:25; Start 06/14/19 at 20:00 Linezolid/Dextrose 300 ml @ 300 mls/hr Q12HR IV Last administered on 07/03/19at 08:34; Start 06/14/19 at 21:00; Stop 07/03/19 at 09:09; Status DC Insulin Human Lispro (HumaLOG) 0-7 UNITS TIDWMEALS SQ ; Start 06/15/19 at 08:00; Stop 06/15/19 at 00:03; Status DC Dextrose (Dextrose 50%-Water Syringe) 12.5 gm PRN Q15MIN PRN IV SEE COMMENTS; Start 06/14/19 at 23:30; Stop 07/03/19 at 10:41; Status DC Insulin Human Lispro (HumaLOG) 0-7 UNITS Q4HRS SQ Last administered on 06/23/19at 08:05; Start 06/15/19 at 00:15; Stop 07/01/19 at 16:41; Status DC Calcium Gluconate 77486 mg/Sodium Chloride 494 ml @ 4.051 mls/ hr CONT PRN IV SYMPTOMATIC HYPOCALCEMIA; Start 06/15/19 at 09:30; Stop 06/15/19 at 09:23; Status DC Calcium Gluconate 5000 mg/Sodium Chloride 260 ml @ 5.543 mls/ hr CONT PRN IV SYMPTOMATIC HYPOCALCEMIA; Start 06/15/19 at 09:30; Stop 06/15/19 at 09:26; Status DC Calcium Gluconate 5000 mg/Sodium Chloride 260 ml @ 5.543 mls/ hr CONT PRN IV SYMPTOMATIC HYPOCALCEMIA; Start 06/15/19 at 09:30; Stop 06/15/19 at 09:29; Status DC Calcium Gluconate 5000 mg/Sodium Chloride 250 ml @ 28.782 mls/ hr CONT PRN IV SYMPTOMATIC HYPOCALCEMIA Last administered on 06/18/19at 06:12; Start 06/15/19 at 09:30; Stop 06/18/19 at 13:50; Status DC Lidocaine HCl (Lidocaine Pf 2% Vial) 5 ml STK-MED ONCE .ROUTE ; Start 06/14/19 at 12:00; Stop 06/17/19 at 10:37; Status DC Meropenem 500 mg/ Sodium Chloride 50 ml @ 100 mls/hr Q6HRS IV Last administered on 07/06/19at 12:12; Start 06/18/19 at 07:30; Stop 07/06/19 at 15:00; Status DC Nicardipine HCl 50 mg/Sodium Chloride 250 ml @ 25 mls/hr CONT PRN IV SEE I/O RECORD; Start 06/18/19 at 11:45; Stop 07/13/19 at 15:06; Status DC Metoprolol Tartrate (Lopressor Vial) 5 mg 1X ONCE IVP ; Start 06/18/19 at 12:15; Stop 06/18/19 at 12:16; Status DC Fentanyl Citrate (Fentanyl 600 Mcg/30 ml ORGANIC SEARCH LEAD) 600 mcg STK-MED ONCE IV ; Start 06/15/19 at 05:30; Stop 06/18/19 at 12:07; Status DC Enoxaparin Sodium (Lovenox 40mg Syringe) 40 mg Q24H SQ Last administered on 06/21/19at 23:02; Start 06/18/19 at 22:30; Stop 06/22/19 at 11:07; Status DC Fentanyl Citrate 55 ml @ 1.98 mls/hr CONT PRN IV SEE PROTOCOL; Start 06/19/19 at 08:15; Status Cancel Info (Tpn Per Pharmacy) 1 each PRN DAILY PRN MC SEE COMMENTS Last administered on 07/20/19at 12:36; Start 06/19/19 at 11:15 Hydralazine HCl (Apresoline Inj) 10 mg PRN Q4HRS PRN IVP ELEVATED BP, 1st choice Last administered on 07/15/19at 07:33; Start 06/19/19 at 11:45 Labetalol HCl (Normodyne Iv Push) 20 mg PRN Q2HR PRN IVP HYPERTENSION, 2nd choice Last administered on 06/26/19at 14:44; Start 06/19/19 at 11:45 Potassium Phosphate 13.6 mmol/Magnesium Sulfate 10 meq/ Calcium Gluconate 20 meq/ Multivitamins 10 ml/Chromium/ Copper/Manganese/ Seleni/Zn 0.5 ml/ Total Parenteral Nutrition/Amino Acids/Dextrose/ Fat Emulsion Intravenous 1,920 ml @ 80 mls/hr TPN CONT IV Last administered on 06/19/19 21:31; Start 06/19/19 at 22:00; Stop 06/20/19 at 21:59; Status DC Fentanyl Citrate 30 ml @ 0 mls/hr CONT PRN IV SEE PROTOCOL Last administered on 06/24/19 09:31; Start 06/19/19 at 18:00; Stop 06/24/19 at 11:38; Status DC Micafungin Sodium 100 mg/Dextrose 100 ml @ 100 mls/hr Q24H IV Last administered on 07/07/19at 08:19; Start 06/20/19 at 09:00; Stop 07/07/19 at 09:51; Status DC Potassium Phosphate 13.6 mmol/Calcium Gluconate 20 meq/ Multivitamins 10 ml/Chromium/ Copper/Manganese/ Seleni/Zn 0.5 ml/ Insulin Human Regular 10 unit/ Total Parenteral Nutrition/Amino Acids/Dextrose/ Fat Emulsion Intravenous 1,920 ml @ 80 mls/hr TPN CONT IV Last administered on 06/20/19at 21:57; Start 06/20/19 at 22:00; Stop 06/21/19 at 21:59; Status DC Insulin Glargine (Lantus Syringe) 15 unit QHS SQ Last administered on 06/20/19 20:46; Start 06/20/19 at 21:00; Stop 06/21/19 at 12:32; Status DC Insulin Glargine (Lantus Syringe) 20 unit QHS SQ Last administered on 07/02/19at 20:46; Start 06/21/19 at 21:00; Stop 07/03/19 at 10:39; Status DC Potassium Phosphate 13.6 mmol/Calcium Gluconate 20 meq/ Multivitamins 10 ml/Chromium/ Copper/Manganese/ Seleni/Zn 0.5 ml/ Insulin Human Regular 10 unit/ Total Parenteral Nutrition/Amino Acids/Dextrose/ Fat Emulsion Intravenous 1,920 ml @ 80 mls/hr TPN CONT IV Last administered on 06/21/19at 21:31; Start 06/21/19 at 22:00; Stop 06/22/19 at 21:59; Status DC Dextrose 1,000 ml @ 75 mls/hr [id number] IV Last administered on 06/27/19at 01:32; Start 06/22/19 at 07:00; Stop 06/27/19 at 12:43; Status DC Albuterol Sulfate (Ventolin Neb Soln) 2.5 mg RTQID NEB Last administered on 07/21/19at 07:21; Start 06/22/19 at 08:00 Iohexol (Omnipaque 240 Mg/ml) 30 ml 1X ONCE PO ; Start 06/22/19 at 08:00; Stop 06/22/19 at 08:05; Status DC Iohexol (Omnipaque 300 Mg/ml) 75 ml 1X ONCE IV ; Start 06/22/19 at 08:00; Stop 06/22/19 at 08:01; Status Cancel Info (CONTRAST GIVEN -- Rx MONITORING) 1 each PRN DAILY PRN MC SEE COMMENTS; Start 06/22/19 at 08:15; Stop 06/24/19 at 08:14; Status DC Cefoxitin Sodium (Mefoxin) 2 gm 1X PREOP IVP ; Start 06/22/19 at 11:00; Stop 06/22/19 at 11:16; Status DC Cefoxitin Sodium (Mefoxin) 2 gm 1X PREOP ONCE IVP Last administered on 06/22/19at 11:37; Start 06/22/19 at 11:30; Stop 06/22/19 at 11:31; Status DC Rocuronium Charlotte (Zemuron) 50 mg STK-MED ONCE .ROUTE ; Start 06/22/19 at 11:42; Stop 06/22/19 at 11:42; Status DC Propofol 20 ml @ As Directed STK-MED ONCE IV ; Start 06/22/19 at 11:42; Stop 06/22/19 at 11:43; Status DC Dexamethasone Sodium Phosphate (Decadron) 4 mg STK-MED ONCE .ROUTE ; Start 06/22/19 at 11:45; Stop 06/22/19 at 11:45; Status DC Ondansetron HCl (Zofran) 4 mg STK-MED ONCE .ROUTE ; Start 06/22/19 at 11:45; Stop 06/22/19 at 11:45; Status DC Potassium Phosphate 13.6 mmol/Magnesium Sulfate 5 meq/ Calcium Gluconate 20 meq/ Multivitamins 10 ml/Chromium/ Copper/Manganese/ Seleni/Zn 0.5 ml/ Total Parenteral Nutrition/Amino Acids/Dextrose/ Fat Emulsion Intravenous 1,920 ml @ 80 mls/hr TPN CONT IV Last administered on 06/22/19at 22:14; Start 06/22/19 at 22:00; Stop 06/23/19 at 21:59; Status DC Rocuronium [place] (Zemuron) 100 mg STK-MED ONCE .ROUTE ; Start 06/22/19 at 13:05; Stop 06/22/19 at 13:06; Status DC Cellulose (Surgicel Hemostat 4x8) 1 each STK-MED ONCE .ROUTE Last administered on 06/22/19at 12:46; Start 06/22/19 at 13:14; Stop 06/22/19 at 13:14; Status DC Albumin Human 500 ml @ As Directed STK-MED ONCE IV ; Start 06/22/19 at 13:25; Stop 06/22/19 at 13:25; Status DC Sevoflurane (Ultane) 90 ml STK-MED ONCE IH ; Start 06/22/19 at 13:53; Stop 06/22/19 at 13:53; Status DC Cellulose (Surgicel Hemostat 4x8) 1 each STK-MED ONCE TP Last administered on 06/22/19at 12:46; Start 06/22/19 at 12:46; Stop 06/22/19 at 14:25; Status DC Cellulose (Surgicel Hemostat 4x8) 1 each STK-MED ONCE TP Last administered on 06/22/19at 12:46; Start 06/22/19 at 12:46; Stop 06/22/19 at 14:25; Status DC Rocuronium [place] (Zemuron) 50 mg STK-MED ONCE .ROUTE ; Start 06/22/19 at 14:52; Stop 06/22/19 at 14:52; Status DC Vecuronium Charlotte 50 mg/ Miscellaneous 50 ml @ 4.925 mls/ hr CONT PRN IV SEE PROTOCOL Last administered on 06/25/19at 05:19; Start 06/22/19 at 15:00 Enoxaparin Sodium (Lovenox 40mg Syringe) 40 mg Q24H SQ Last administered on 07/21/19at 05:56; Start 06/23/19 at 06:00 Sodium Chloride (Normal Saline Flush) 3 ml QSHIFT PRN IV AFTER MEDS AND BLOOD DRAWS; Start 06/22/19 at 15:45 Ringer's Solution 1,000 ml @ 100 mls/hr Q10H IV Last administered on 06/23/19at 22:06; Start 06/22/19 at 15:39; Stop 06/24/19 at 17:46; Status DC Naloxone HCl (Narcan) 0.4 mg PRN Q2MIN PRN IV SEE INSTRUCTIONS Last administered on 07/15/19at 07:58; Start 06/22/19 at 15:45 Sodium Chloride 1,000 ml @ 25 mls/hr Q24H IV Last administered on 07/20/19at 14:24; Start 06/22/19 at 15:39 Morphine Sulfate (Morphine Sulfate) 1 mg PRN Q1HR PRN IV MODERATE PAIN Last administered on 07/15/19at 08:48; Start 06/22/19 at 15:45 Ondansetron HCl (Zofran) 4 mg PRN Q6HRS PRN IVP NAUESA, 1ST CHOICE; Start 06/22/19 at 15:45 Calcium Gluconate (Calcium Gluconate) 1,000 mg 1X ONCE IVP ; Start 06/22/19 at 19:45; Stop 06/22/19 at 20:15; Status DC Sodium Bicarbonate (Sodium Bicarb Adult 8.4% Syr) 50 meq 1X ONCE IV Last administered on 06/22/19at 20:37; Start 06/22/19 at 19:45; Stop 06/22/19 at 19:57; Status DC Dextrose (Dextrose 50%-Water Syringe) 25 gm 1X ONCE IV Last administered on 06/22/19at 20:37; Start 06/22/19 at 19:45; Stop 06/22/19 at 19:57; Status DC Insulin Human Regular (HumuLIN R VIAL) 10 unit 1X ONCE IV Last administered on 06/22/19at 20:45; Start 06/22/19 at 19:45; Stop 06/22/19 at 19:57; Status DC Calcium Gluconate 1000 mg/Sodium Chloride 110 ml @ 220 mls/hr 1X ONCE IV Last administered on 06/22/19at 20:36; Start 06/22/19 at 20:15; Stop 06/22/19 at 20:44; Status DC Insulin Human Regular 100 unit/ Sodium Chloride 101 ml @ 0 mls/hr CONT PRN IV SEE I/O RECORD Last administered on 07/02/19at 18:55; Start 06/23/19 at 12:15; Stop 07/03/19 at 10:39; Status DC Sodium Phosphate 10 mmol/Magnesium Sulfate 5 meq/ Calcium Gluconate 15 meq/ Multivitamins 10 ml/Chromium/ Copper/Manganese/ Seleni/Zn 0.5 ml/ Insulin Human Regular 10 unit/ Total Parenteral Nutrition/Amino Acids/Dextrose/ Fat Emulsion Intravenous 1,920 ml @ 80 mls/hr TPN CONT IV Last administered on 06/23/19at 22:20; Start 06/23/19 at 22:00; Stop 06/24/19 at 21:59; Status DC Fentanyl Citrate 55 ml @ 1.98 mls/hr CONT PRN IV SEE PROTOCOL Last administered on 07/21/19at 05:57; Start 06/24/19 at 11:45 Sodium Phosphate 10 mmol/Magnesium Sulfate 5 meq/ Calcium Gluconate 15 meq/ Multivitamins 10 ml/Chromium/ Copper/Manganese/ Seleni/Zn 0.5 ml/ Total Parenteral Nutrition/Amino Acids/Dextrose/ Fat Emulsion Intravenous 1,920 ml @ 80 mls/hr TPN CONT IV Last administered on 06/24/19at 22:26; Start 06/24/19 at 22:00; Stop 06/25/19 at 21:59; Status DC Sodium Phosphate 10 mmol/Magnesium Sulfate 5 meq/ Calcium Gluconate 15 meq/ Multivitamins 10 ml/Chromium/ Copper/Manganese/ Seleni/Zn 0.5 ml/ Total Parenteral Nutrition/Amino Acids/Dextrose/ Fat Emulsion Intravenous 1,920 ml @ 80 mls/hr TPN CONT IV Last administered on 06/25/19at 22:27; Start 06/25/19 at 22:00; Stop 06/26/19 at 21:59; Status DC Sodium Phosphate 10 mmol/Magnesium Sulfate 5 meq/ Calcium Gluconate 15 meq/ Multivitamins 10 ml/Chromium/ Copper/Manganese/ Seleni/Zn 0.5 ml/ Total Parenteral Nutrition/Amino Acids/Dextrose/ Fat Emulsion Intravenous 1,920 ml @ 80 mls/hr TPN CONT IV Last administered on 06/26/19at 21:57; Start 06/26/19 at 22:00; Stop 06/27/19 at 21:59; Status DC Furosemide (Lasix) 60 mg 1X ONCE IVP Last administered on 06/26/19at 12:22; Start 06/26/19 at 12:30; Stop 06/26/19 at 12:31; Status DC Dexmedetomidine HCl 400 mcg/ Sodium Chloride 100 ml @ 0 mls/hr CONT PRN IV SEDATION ON VENT Last administered on 07/21/19at 06:23; Start 06/26/19 at 19:00 Sodium Chloride 500 ml @ 500 mls/hr 1X PRN PRN IV SEE COMMENTS; Start 06/26/19 at 19:00 Atropine Sulfate (ATROPINE 0.5mg SYRINGE) 0.5 mg PRN Q5MIN PRN IV SEE COMMENTS; Start 06/26/19 at 19:00 Sodium Bicarbonate (Sodium Bicarb Adult 8.4% Syr) 50 meq 1X ONCE IV ; Start 06/26/19 at 19:30; Stop 06/26/19 at 19:23; Status DC Furosemide (Lasix) 40 mg DAILY IVP Last administered on 07/21/19at 08:12; Start 06/27/19 at 12:00 Propofol 100 ml @ As Directed STK-MED ONCE IV ; Start 06/27/19 at 11:51; Stop 06/27/19 at 11:51; Status DC Propofol 100 ml @ 6.588 mls/ hr CONT PRN IV SEE I/O RECORD Last administered on 07/21/19at 05:56; Start 06/27/19 at 12:00 Sodium Phosphate 10 mmol/Magnesium Sulfate 5 meq/ Calcium Gluconate 15 meq/ Multivitamins 10 ml/Chromium/ Copper/Manganese/ Seleni/Zn 0.5 ml/ Total Parenteral Nutrition/Amino Acids/Dextrose/ Fat Emulsion Intravenous 1,920 ml @ 80 mls/hr TPN CONT IV ; Start 06/27/19 at 22:00; Stop 06/27/19 at 12:55; Status DC Potassium Phosphate 10 mmol/ Magnesium Sulfate 5 meq/Calcium Gluconate 15 meq/ Multivitamins 10 ml/Chromium/ Copper/Manganese/ Seleni/Zn 0.5 ml/ Total Parenteral Nutrition/Amino Acids/Dextrose/ Fat Emulsion Intravenous 1,920 ml @ 80 mls/hr TPN CONT IV Last administered on 06/27/19at 21:38; Start 06/27/19 at 22:00; Stop 06/28/19 at 21:59; Status DC Potassium Chloride/Water 100 ml @ 50 mls/hr 1X ONCE IV Last administered on 06/28/19at 15:00; Start 06/28/19 at 15:00; Stop 06/28/19 at 16:59; Status DC Potassium Phosphate 10 mmol/ Magnesium Sulfate 5 meq/Calcium Gluconate 15 meq/ Multivitamins 10 ml/Chromium/ Copper/Manganese/ Seleni/Zn 0.5 ml/ Potassium Acetate 20 meq/Total Parenteral Nutrition/Amino Acids/Dextrose/ Fat Emulsion Int ravenous 1,920 ml @ 80 mls/hr TPN CONT IV Last administered on 06/28/19at 22:14; Start 06/28/19 at 22:00; Stop 06/29/19 at 21:59; Status DC Potassium Chloride/Water 100 ml @ 50 mls/hr 1X ONCE IV Last administered on 06/29/19at 08:57; Start 06/29/19 at 09:00; Stop 06/29/19 at 10:59; Status DC Potassium Phosphate 10 mmol/ Magnesium Sulfate 5 meq/Calcium Gluconate 15 meq/ Multivitamins 10 ml/Chromium/ Copper/Manganese/ Seleni/Zn 0.5 ml/ Potassium Acetate 20 meq/Total Parenteral Nutrition/Amino Acids/Dextrose/ Fat Emulsion Intravenous 1,920 ml @ 80 mls/hr TPN CONT IV Last administered on 06/29/19at 21:32; Start 06/29/19 at 22:00; Stop 06/30/19 at 21:59; Status DC Potassium Phosphate 10 mmol/ Magnesium Sulfate 5 meq/Calcium Gluconate 15 meq/ Multivitamins 10 ml/Chromium/ Copper/Manganese/ Seleni/Zn 0.5 ml/ Potassium Acetate 20 meq/Total Parenteral Nutrition/Amino Acids/Dextrose 1,920 ml @ 80 mls/hr TPN CONT IV Last administered on 06/30/19at 21:38; Start 06/30/19 at 22:00; Stop 07/01/19 at 21:59; Status DC Potassium Phosphate 10 mmol/ Magnesium Sulfate 5 meq/Calcium Gluconate 15 meq/ Multivitamins 10 ml/Chromium/ Copper/Manganese/ Seleni/Zn 0.5 ml/ Potassium Acetate 10 meq/Total Parenteral Nutrition/Amino Acids/Dextrose 1,920 ml @ 80 mls/hr TPN CONT IV Last administered on 07/01/19at 21:30; Start 07/01/19 at 22:00; Stop 07/02/19 at 21:59; Status DC Potassium Phosphate 10 mmol/ Magnesium Sulfate 5 meq/Calcium Gluconate 15 meq/ Multivitamins 10 ml/Chromium/ Copper/Manganese/ Seleni/Zn 0.5 ml/ Potassium Acetate 10 meq/Total Parenteral Nutrition/Amino Acids/Dextrose 1,920 ml @ 80 mls/hr TPN CONT IV Last administered on 07/02/19at 21:36; Start 07/02/19 at 22:00; Stop 07/03/19 at 21:59; Status DC Daptomycin 520 mg/ Sodium Chloride 50 ml @ 100 mls/hr Q24H IV Last administered on 07/13/19at 09:57; Start 07/03/19 at 10:00; Stop 07/14/19 at 09:26; Status DC Insulin Glargine (Lantus Syringe) 30 unit BID SQ Last administered on 07/21/19at 08:13; Start 07/03/19 at 11:00 Insulin Human Lispro (HumaLOG) 0-9 UNITS Q6HRS SQ Last administered on 07/21/19at 05:57; Start 07/03/19 at 12:00 Dextrose (Dextrose 50%-Water Syringe) 12.5 gm PRN Q15MIN PRN IV SEE COMMENTS; Start 07/03/19 at 10:30 Potassium Acetate 10 meq/Potassium Phosphate 10 mmol/ Magnesium Sulfate 5 meq/Calcium Gluconate 15 meq/ Multivitamins 10 ml/Chromium/ Copper/Manganese/ Seleni/Zn 0.5 ml/ Total Parenteral Nutrition/Amino Acids/Dextrose 1,920 ml @ 80 mls/hr TPN CONT IV Last administered on 07/03/19at 21:26; Start 07/03/19 at 22:00; Stop 07/04/19 at 21:59; Status DC Linezolid/Dextrose 300 ml @ 300 mls/hr Q12HR IV Last administered on 07/20/19at 09:36; Start 07/04/19 at 09:00; Stop 07/20/19 at 12:59; Status DC Potassium Acetate 10 meq/Potassium Phosphate 10 mmol/ Magnesium Sulfate 5 meq/Calcium Gluconate 15 meq/ Multivitamins 10 ml/Chromium/ Copper/Manganese/ Seleni/Zn 0.5 ml/ Total Parenteral Nutrition/Amino Acids/Dextrose 1,920 ml @ 80 mls/hr TPN CONT IV Last administered on 07/04/19at 21:13; Start 07/04/19 at 22:00; Stop 07/05/19 at 21:59; Status DC Lidocaine HCl (Buffered Lidocaine 1%) 3 ml STK-MED ONCE .ROUTE ; Start 07/04/19 at 14:23; Stop 07/04/19 at 14:23; Status DC Iohexol (Omnipaque 240 Mg/ml) 50 ml STK-MED ONCE .ROUTE ; Start 07/04/19 at 14:23; Stop 07/04/19 at 14:24; Status DC Lidocaine HCl (Buffered Lidocaine 1%) 3 ml 1X ONCE INJ Last administered on 07/04/19at 15:34; Start 07/04/19 at 14:30; Stop 07/04/19 at 14:31; Status DC Iohexol (Omnipaque 240 Mg/ml) 50 ml 1X ONCE IJ Last administered on 07/04/19at 15:33; Start 07/04/19 at 14:30; Stop 07/04/19 at 14:31; Status DC Info (CONTRAST GIVEN -- Rx MONITORING) 1 each PRN DAILY PRN MC SEE COMMENTS; Start 07/04/19 at 14:30; Stop 07/06/19 at 14:29; Status DC Potassium Acetate 10 meq/Potassium Phosphate 10 mmol/ Magnesium Sulfate 5 meq/Calcium Gluconate 15 meq/ Multivitamins 10 ml/Chromium/ Copper/Manganese/ Seleni/Zn 0.5 ml/ Total Parenteral Nutrition/Amino Acids/Dextrose 1,920 ml @ 80 mls/hr TPN CONT IV Last administered on 07/05/19at 20:59; Start 07/05/19 at 22:00; Stop 07/06/19 at 21:59; Status DC Potassium Acetate 10 meq/Potassium Phosphate 10 mmol/ Magnesium Sulfate 5 meq/Calcium Gluconate 15 meq/ Multivitamins 10 ml/Chromium/ Copper/Manganese/ Seleni/Zn 0.5 ml/ Total Parenteral Nutrition/Amino Acids/Dextrose 1,920 ml @ 80 mls/hr TPN CONT IV Last administered on 07/06/19at 22:51; Start 07/06/19 at 22:00; Stop 07/07/19 at 21:59; Status DC Cefepime HCl (Maxipime) 2 gm Q8HRS IVP Last administered on 07/20/19at 06:37; Start 07/06/19 at 22:00; Stop 07/20/19 at 12:59; Status DC Metronidazole 100 ml @ 100 mls/hr Q8HRS IV Last administered on 07/20/19at 06:37; Start 07/06/19 at 22:00; Stop 07/20/19 at 12:59; Status DC Lidocaine HCl (Buffered Lidocaine 1%) 3 ml STK-MED ONCE .ROUTE ; Start 07/07/19 at 10:07; Stop 07/07/19 at 10:07; Status DC Iohexol (Omnipaque 240 Mg/ml) 50 ml STK-MED ONCE .ROUTE ; Start 07/07/19 at 10:07; Stop 07/07/19 at 10:07; Status DC Potassium Acetate 10 meq/Potassium Phosphate 10 mmol/ Magnesium Sulfate 10 meq/Calcium Gluconate 10 meq/ Multivitamins 10 ml/Chromium/ Copper/Manganese/ Seleni/Zn 0.5 ml/ Total Parenteral Nutrition/Amino Acids/Dextrose 1,920 ml @ 80 mls/hr TPN CONT IV Last administered on 07/07/19at 21:50; Start 07/07/19 at 22:00; Stop 07/08/19 at 21:59; Status DC Lidocaine HCl (Buffered Lidocaine 1%) 4 ml 1X ONCE IJ Last administered on 07/07/19at 12:50; Start 07/07/19 at 14:00; Stop 07/07/19 at 14:01; Status DC Iohexol (Omnipaque 240 Mg/ml) 10 ml 1X ONCE IJ Last administered on 07/07/19at 12:50; Start 07/07/19 at 14:00; Stop 07/07/19 at 14:01; Status DC Multi-Ingred Cream/Lotion/Oil/ Oint (Artificial Tears Eye Ointment) 1 devorah PRN Q1HR PRN OU DRY EYE; Start 07/08/19 at 10:30 Potassium Acetate 10 meq/Potassium Phosphate 10 mmol/ Magnesium Sulfate 10 meq/Calcium Gluconate 10 meq/ Multivitamins 10 ml/Chromium/ Copper/Manganese/ Seleni/Zn 0.5 ml/ Total Parenteral Nutrition/Amino Acids/Dextrose/ Fat Emulsion Intravenous 1,635 ml @ 68.125 mls/ hr TPN CONT IV Last administered on 07/08/19at 21:47; Start 07/08/19 at 22:00; Stop 07/09/19 at 21:59; Status DC Potassium Acetate 15 meq/Potassium Phosphate 15 mmol/ Magnesium Sulfate 10 meq/Calcium Gluconate 10 meq/ Multivitamins 10 ml/Chromium/ Copper/Manganese/ Seleni/Zn 0.5 ml/ Total Parenteral Nutrition/Amino Acids/Dextrose/ Fat Emulsion Intravenous 1,920 ml @ 80 mls/hr TPN CONT IV Last administered on 07/09/19at 21:39; Start 07/09/19 at 22:00; Stop 07/10/19 at 21:59; Status DC Potassium Acetate 15 meq/Potassium Phosphate 15 mmol/ Magnesium Sulfate 10 meq/Calcium Gluconate 10 meq/ Multivitamins 10 ml/Chromium/ Copper/Manganese/ Seleni/Zn 0.5 ml/ Total Parenteral Nutrition/Amino Acids/Dextrose/ Fat Emulsion Intravenous 1,920 ml @ 80 mls/hr TPN CONT IV Last administered on 07/10/19at 21:48; Start 07/10/19 at 22:00; Stop 07/11/19 at 21:59; Status DC Potassium Acetate 15 meq/Potassium Phosphate 15 mmol/ Magnesium Sulfate 10 meq/Calcium Gluconate 10 meq/ Multivitamins 10 ml/Chromium/ Copper/Manganese/ Seleni/Zn 0.5 ml/ Total Parenteral Nutrition/Amino Acids/Dextrose/ Fat Emulsion Intravenous 1,920 ml @ 80 mls/hr TPN CONT IV Last administered on 07/11/19at 21:32; Start 07/11/19 at 22:00; Stop 07/12/19 at 21:59; Status DC Lidocaine HCl (Buffered Lidocaine 1%) 6 ml 1X ONCE INJ Last administered on 07/11/19at 14:00; Start 07/11/19 at 14:00; Stop 07/11/19 at 14:02; Status DC Lidocaine HCl (Buffered Lidocaine 1%) 3 ml STK-MED ONCE .ROUTE ; Start 07/11/19 at 13:56; Stop 07/11/19 at 14:13; Status DC Potassium Acetate 15 meq/Potassium Phosphate 15 mmol/ Magnesium Sulfate 10 meq/Calcium Gluconate 10 meq/ Multivitamins 10 ml/Chromium/ Copper/Manganese/ Seleni/Zn 0.5 ml/ Total Parenteral Nutrition/Amino Acids/Dextrose/ Fat Emulsion Intravenous 1,920 ml @ 80 mls/hr TPN CONT IV Last administered on 07/12/19at 21:39; Start 07/12/19 at 22:00; Stop 07/13/19 at 21:59; Status DC Midazolam HCl 100 mg/Sodium Chloride 100 ml @ 9 mls/hr CONT PRN IV SEE PROTOCOL Last administered on 07/18/19at 00:29; Start 07/13/19 at 15:00 Potassium Acetate 15 meq/Potassium Phosphate 15 mmol/ Magnesium Sulfate 10 meq/Calcium Gluconate 10 meq/ Multivitamins 10 ml/Chromium/ Copper/Manganese/ Seleni/Zn 0.5 ml/ Total Parenteral Nutrition/Amino Acids/Dextrose/ Fat Emulsion Intravenous 1,920 ml @ 80 mls/hr TPN CONT IV Last administered on 07/13/19at 22:17; Start 07/13/19 at 22:00; Stop 07/14/19 at 21:59; Status DC Potassium Acetate 15 meq/Potassium Phosphate 15 mmol/ Magnesium Sulfate 10 meq/Calcium Gluconate 10 meq/ Multivitamins 10 ml/Chromium/ Copper/Manganese/ Seleni/Zn 0.5 ml/ Total Parenteral Nutrition/Amino Acids/Dextrose/ Fat Emulsion Intravenous 1,920 ml @ 80 mls/hr TPN CONT IV Last administered on 07/14/19at 22:16; Start 07/14/19 at 22:00; Stop 07/15/19 at 21:59; Status DC Metoprolol Tartrate (Lopressor Vial) 5 mg PRN Q6HRS PRN IVP TACHYCARDIA; Start 07/15/19 at 12:30 Potassium Acetate 15 meq/Potassium Phosphate 18 mmol/ Magnesium Sulfate 15 meq/Calcium Gluconate 10 meq/ Multivitamins 10 ml/Chromium/ Copper/Manganese/ S isabella/Zn 0.5 ml/ Total Parenteral Nutrition/Amino Acids/Dextrose/ Fat Emulsion Intravenous 1,920 ml @ 80 mls/hr TPN CONT IV Last administered on 07/15/19at 22:10; Start 07/15/19 at 22:00; Stop 07/16/19 at 21:59; Status DC Potassium Acetate 15 meq/Potassium Phosphate 18 mmol/ Magnesium Sulfate 15 meq/Calcium Gluconate 10 meq/ Multivitamins 10 ml/Chromium/ Copper/Manganese/ Seleni/Zn 0.5 ml/ Total Parenteral Nutrition/Amino Acids/Dextrose/ Fat Emulsion Intravenous 1,920 ml @ 80 mls/hr TPN CONT IV Last administered on 07/16/19at 22:08; Start 07/16/19 at 22:00; Stop 07/17/19 at 21:59; Status DC Bisacodyl (Dulcolax Supp) 10 mg 1X ONCE NM Last administered on 07/16/19at 14:50; Start 07/16/19 at 12:30; Stop 07/16/19 at 12:31; Status DC Sodium Phosphate 15 mmol/Sodium Chloride 105 ml @ 105 mls/hr 1X ONCE IV Last administered on 07/16/19at 12:33; Start 07/16/19 at 14:00; Stop 07/16/19 at 14:59; Status DC Fluconazole/ Sodium Chloride 100 ml @ 100 mls/hr Q24H IV Last administered on 07/20/19at 08:37; Start 07/17/19 at 08:00; Stop 07/20/19 at 12:59; Status DC Bisacodyl (Dulcolax Supp) 10 mg PRN DAILY PRN NM CONSTIPATION; Start 07/17/19 at 10:15 Sodium Phosphate 20 mmol/Sodium Chloride 256.6667 ml @ 64.167 m... 1X ONCE IV Last administered on 07/17/19at 14:50; Start 07/17/19 at 14:00; Stop 07/17/19 at 17:59; Status DC Potassium Phosphate 23 mmol/ Magnesium Sulfate 15 meq/Calcium Gluconate 10 meq/ Multivitamins 10 ml/Chromium/ Copper/Manganese/ Seleni/Zn 0.5 ml/ Total Parenteral Nutrition/Amino Acids/Dextrose/ Fat Emulsion Intravenous 1,920 ml @ 80 mls/hr TPN CONT IV Last administered on 07/17/19at 22:20; Start 07/17/19 at 22:00; Stop 07/18/19 at 21:59; Status DC Fentanyl Citrate (Fentanyl 50 Mcg/ ml ORGANIC SEARCH LEAD Syringe) 2,750 mcg STK-MED ONCE IV ; Start 07/13/19 at 22:45; Stop 07/17/19 at 15:58; Status DC Lidocaine/ Epinephrine (LIDOCAINE 1%-EPI 1:100,000 Multi-Dose) 20 ml STK-MED ONCE .ROUTE ; Start 07/18/19 at 08:20; Stop 07/18/19 at 08:21; Status DC Heparin Sodium (Porcine) (Hep Lock Adult) 500 unit STK-MED ONCE IVP ; Start 07/18/19 at 09:27; Stop 07/18/19 at 09:27; Status DC Lidocaine/ Epinephrine (LIDOCAINE 1%-EPI 1:100,000 Multi-Dose) 5 ml 1X ONCE INJ Last administered on 07/18/19at 09:46; Start 07/18/19 at 09:45; Stop 07/18/19 at 09:46; Status DC Potassium Phosphate 23 mmol/ Magnesium Sulfate 15 meq/Calcium Gluconate 10 meq/ Multivitamins 10 ml/Chromium/ Copper/Manganese/ Seleni/Zn 0.5 ml/ Total Parenteral Nutrition/Amino Acids/Dextrose/ Fat Emulsion Intravenous 1,920 ml @ 80 mls/hr TPN CONT IV Last administered on 07/18/19at 21:48; Start 07/18/19 at 22:00; Stop 07/19/19 at 21:59; Status DC Potassium Phosphate 23 mmol/ Magnesium Sulfate 15 meq/Calcium Gluconate 10 meq/ Multivitamins 10 ml/Chromium/ Copper/Manganese/ Seleni/Zn 0.5 ml/ Total Parenteral Nutrition/Amino Acids/Dextrose 1,920 ml @ 80 mls/hr TPN CONT IV Last administered on 07/19/19at 21:55; Start 07/19/19 at 22:00; Stop 07/20/19 at 21:59; Status DC Potassium Phosphate 23 mmol/ Magnesium Sulfate 15 meq/Calcium Gluconate 10 meq/ Multivitamins 10 ml/Chromium/ Copper/Manganese/ Seleni/Zn 0.5 ml/ Total Parenteral Nutrition/Amino Acids/Dextrose 1,920 ml @ 80 mls/hr TPN CONT IV Last administered on 07/20/19at 21:26; Start 07/20/19 at 22:00; Stop 07/21/19 at 21:59 Meropenem 500 mg/ Sodium Chloride 50 ml @ 100 mls/hr Q6HRS IV Last administered on 07/21/19at 08:19; Start 07/20/19 at 18:00 Daptomycin 510 mg/ Sodium Chloride 50 ml @ 100 mls/hr Q24H IV Last admi nistered on 07/20/19at 16:08; Start 07/20/19 at 15:00 Magnesium Sulfate 50 ml @ 25 mls/hr 1X ONCE IV Last administered on 07/21/19at 08:12; Start 07/21/19 at 08:00; Stop 07/21/19 at 09:59 Lorazepam (Ativan Inj) 2 mg PRN Q6HRS PRN IVP ANXIETY / AGITATION; Start 07/21/19 at 08:30 Active Scripts Active Vitals/I & O Vital Sign - Last 24 Hours 07/20/19 07/20/19 07/20/19 07/20/19 09:00 10:00 11:00 11:25 Pulse 90 85 85 Resp 15 20 16 B/P (MAP) 100/60 (73) 100/61 (74) 103/61 (75) Pulse Ox 98 100 100 98 O2 Delivery Ventilator Ventilator Ventilator Ventilator 07/20/19 07/20/19 07/20/19 07/20/19 12:00 12:00 13:00 14:00 Temp 101.1 101.1 Pulse 87 87 92 Resp 15 15 26 B/P (MAP) 102/58 (73) 104/58 (73) 102/65 (77) Pulse Ox 100 100 99 O2 Delivery Mechanical Ventilator Ventilator Ventilator Ventilator 07/20/19 07/20/19 07/20/19 07/20/19 15:00 15:30 16:00 16:07 Pulse 93 83 Resp 26 24 B/P (MAP) 115/70 (85) 104/70 (81) Pulse Ox 99 99 98 O2 Delivery Ventilator Ventilator Ventilator Mechanical Ventilator 07/20/19 07/20/19 07/20/19 07/20/19 17:00 18:00 18:00 19:00 Temp 98.6 98.6 Pulse 82 83 83 Resp 24 22 16 B/P (MAP) 103/66 (78) 106/62 (77) 103/58 (73) Pulse Ox 97 98 99 98 O2 Delivery Ventilator Ventilator Ventilator Ventilator 07/20/19 07/20/19 07/20/19 07/20/19 20:00 20:00 20:28 21:00 Temp 98.9 98.9 Pulse 84 82 Resp 16 16 B/P (MAP) 106/62 (77) 112/72 (85) Pulse Ox 97 97 98 O2 Delivery Ventilator Mechanical Ventilator Ventilator Ventilator 07/20/19 07/20/19 07/20/19 07/21/19 22:00 23:00 23:28 00:00 Pulse 82 81 Resp 16 16 B/P (MAP) 107/69 (82) 104/64 (77) Pulse Ox 98 98 97 O2 Delivery Ventilator Ventilator Ventilator Mechanical Ventilator 07/21/19 07/21/19 07/21/19 07/21/19 00:00 01:00 02:00 02:03 Temp 100.8 100.8 Pulse 85 84 87 Resp 16 16 16 B/P (MAP) 96/65 (75) 98/58 (71) 115/85 (95) Pulse Ox 99 99 100 97 O2 Delivery Ventilator Ventilator Ventilator Ventilator 07/21/19 07/21/19 07/21/19 07/21/19 03:00 04:00 04:00 04:48 Temp 100.4 100.4 Pulse 85 82 Resp 16 16 B/P (MAP) 99/59 (72) 100/62 (75) Pulse Ox 98 100 100 O2 Delivery Ventilator Ventilator Mechanical Ventilator Ventilator 07/21/19 07/21/19 07/21/19 07/21/19 05:00 05:57 06:00 06:34 Pulse 87 95 Resp 16 16 16 18 B/P (MAP) 126/82 (97) 101/62 (75) Pulse Ox 100 93 99 98 O2 Delivery Ventilator Ventilator Ventilator Ventilator 07/21/19 07/21/19 07/21/19 07:00 07:22 07:40 Temp 100.4 100.4 Pulse 87 Resp 29 B/P (MAP) 104/62 (76) Pulse Ox 98 99 O2 Delivery Ventilator Ventilator Mechanical Ventilator Intake and Output 07/20/19 07/20/19 07/21/19 15:00 23:00 07:00 Intake Total 1840 ml 2260.4 ml Output Total 1690 ml 810 ml 1195 ml Balance -1690 ml 1030 ml 1065.4 ml Hemodynamically unstable?: No Is patient in severe pain?: No Is NPO status required?: Yes BRENDA JONAS MD Jul 21, 2019 08:57
--- NOTE | 2019-07-21 09:42 | PDOC ---
PULMONARY PROGRESS NOTES Subjective trach to vent, remains in A/C mode continues to be hard to reduce sedation,safely Plan for LTACH today Vitals Vital Signs Date Time Temp Pulse Resp B/P (MAP) Pulse Ox O2 Delivery O2 Flow Rate FiO2 07/21/19 09:00 120 42 140/83 (102) 99 Ventilator 07/21/19 07:00 100.4 100.4 Comments trach/sedated Lungs: Clear Cardiovascular: S1, S2 Abdomen: Soft Extremities: Other (edema +1) Labs Laboratory Tests Test 07/19/19 11:54 07/19/19 18:36 07/19/19 23:27 07/20/19 05:50 Glucose (Fingerstick) 167 mg/dL (70-99) 139 mg/dL (70-99) 177 mg/dL (70-99) 225 mg/dL (70-99) Test 07/20/19 06:30 07/20/19 07:30 07/20/19 11:38 07/20/19 14:35 White Blood Count 9.6 x10^3/uL (4.0-11.0) Red Blood Count 2.45 x10^6/uL (4.30-5.70) Hemoglobin 7.2 g/dL (13.0-17.5) Hematocrit 21.7 % (39.0-53.0) Mean Corpuscular Volume 89 fL (79-100) Mean Corpuscular Hemoglobin 29 pg (25-35) Mean Corpuscular Hemoglobin Concent 33 g/dL (31-37) Red Cell Distribution Width 15.8 % (11.5-14.5) Platelet Count 325 x10^3/uL (140-400) Neutrophils (%) (Auto) 75 % (31-73) Lymphocytes (%) (Auto) 13 % (24-48) Monocytes (%) (Auto) 11 % (0-9) Eosinophils (%) (Auto) 1 % (0-3) Basophils (%) (Auto) 0 % (0-3) Neutrophils # (Auto) 7.3 x10^3/uL (1.8-7.7) Lymphocytes # (Auto) 1.2 x10^3/uL (1.0-4.8) Monocytes # (Auto) 1.0 x10^3/uL (0.0-1.1) Eosinophils # (Auto) 0.1 x10^3/uL (0.0-0.7) Basophils # (Auto) 0.0 x10^3/uL (0.0-0.2) O2 Saturation 97 % (92-99) Arterial Blood pH 7.46 (7.35-7.45) Arterial Blood pCO2 at Patient Temp 41 mmHg (35-46) Arterial Blood pO2 at Patient Temp 94 mmHg (75-108) Arterial Blood HCO3 28 mmol/L (21-28) Arterial Blood Base Excess 4 mmol/L (-3-3) FiO2 35 Glucose (Fingerstick) 194 mg/dL (70-99) Urine Collection Type U cath Urine Color Dk yellow Urine Clarity Clear Urine pH 6.0 (<5.0-8.0) Urine Specific [place] 1.020 (1.000-1.030) Urine Protein 100 mg/dL (NEG-TRACE) Urine Glucose (UA) Negative mg/dL (NEG) Urine Ketones (Stick) Negative mg/dL (NEG) Urine Blood Moderate (NEG) Urine Nitrite Negative (NEG) Urine Bilirubin Small (NEG) Urine Urobilinogen Dipstick 0.2 mg/dL (0.2 mg/dL) Urine Leukocyte Esterase Trace (NEG) Urine RBC 20-40 /HPF (0-2) Urine WBC Rare /HPF (0-4) Urine Bacteria 0 /HPF (0-FEW) Urine Mucus Slight /LPF Test 07/20/19 17:38 07/20/19 21:17 07/20/19 23:50 07/21/19 05:20 Glucose (Fingerstick) 197 mg/dL (70-99) 201 mg/dL (70-99) 231 mg/dL (70-99) 191 mg/dL (70-99) Test 07/21/19 05:45 07/21/19 07:20 White Blood Count 10.9 x10^3/uL (4.0-11.0) Red Blood Count 2.66 x10^6/uL (4.30-5.70) Hemoglobin 7.6 g/dL (13.0-17.5) Hematocrit 23.7 % (39.0-53.0) Mean Corpuscular Volume 89 fL (79-100) Mean Corpuscular Hemoglobin 29 pg (25-35) Mean Corpuscular Hemoglobin Concent 32 g/dL (31-37) Red Cell Distribution Width 15.9 % (11.5-14.5) Platelet Count 364 x10^3/uL (140-400) Sodium Level 138 mmol/L (136-145) Potassium Level 4.0 mmol/L (3.5-5.1) Chloride Level 102 mmol/L (98-107) Carbon Dioxide Level 28 mmol/L (21-32) Anion Gap 8 (6-14) Blood Urea Nitrogen 20 mg/dL (8-26) Creatinine 0.8 mg/dL (0.7-1.3) Estimated GFR (Cockcroft-Gault) 124.3 Glucose Level 182 mg/dL (70-99) Lactic Acid Level 2.2 mmol/L (0.4-2.0) Calcium Level 7.6 mg/dL (8.5-10.1) Phosphorus Level 2.4 mg/dL (2.6-4.7) Magnesium Level 1.6 mg/dL (1.8-2.4) O2 Saturation 95 % (92-99) Arterial Blood pH 7.49 (7.35-7.45) Arterial Blood pCO2 at Patient Temp 40 mmHg (35-46) Arterial Blood pO2 at Patient Temp 78 mmHg (75-108) Arterial Blood HCO3 29 mmol/L (21-28) Arterial Blood Base Excess 6 mmol/L (-3-3) FiO2 35 Laboratory Tests Test 07/20/19 11:38 07/20/19 14:35 07/20/19 17:38 07/20/19 21:17 Glucose (Fingerstick) 194 mg/dL (70-99) 197 mg/dL (70-99) 201 mg/dL (70-99) Urine Collection Type U cath Urine Color Dk yellow Urine Clarity Clear Urine pH 6.0 (<5.0-8.0) Urine Specific [place] 1.020 (1.000-1.030) Urine Protein 100 mg/dL (NEG-TRACE) Urine Glucose (UA) Negative mg/dL (NEG) Urine Ketones (Stick) Negative mg/dL (NEG) Urine Blood Moderate (NEG) Urine Nitrite Negative (NEG) Urine Bilirubin Small (NEG) Urine Urobilinogen Dipstick 0.2 mg/dL (0.2 mg/dL) Urine Leukocyte Esterase Trace (NEG) Urine RBC 20-40 /HPF (0-2) Urine WBC Rare /HPF (0-4) Urine Bacteria 0 /HPF (0-FEW) Urine Mucus Slight /LPF Test 07/20/19 23:50 07/21/19 05:20 07/21/19 05:45 07/21/19 07:20 Glucose (Fingerstick) 231 mg/dL (70-99) 191 mg/dL (70-99) White Blood Count 10.9 x10^3/uL (4.0-11.0) Red Blood Count 2.66 x10^6/uL (4.30-5.70) Hemoglobin 7.6 g/dL (13.0-17.5) Hematocrit 23.7 % (39.0-53.0) Mean Corpuscular Volume 89 fL (79-100) Mean Corpuscular Hemoglobin 29 pg (25-35) Mean Corpuscular Hemoglobin Concent 32 g/dL (31-37) Red Cell Distribution Width 15.9 % (11.5-14.5) Platelet Count 364 x10^3/uL (140-400) Sodium Level 138 mmol/L (136-145) Potassium Level 4.0 mmol/L (3.5-5.1) Chloride Level 102 mmol/L (98-107) Carbon Dioxide Level 28 mmol/L (21-32) Anion Gap 8 (6-14) Blood Urea Nitrogen 20 mg/dL (8-26) Creatinine 0.8 mg/dL (0.7-1.3) Estimated GFR (Cockcroft-Gault) 124.3 Glucose Level 182 mg/dL (70-99) Lactic Acid Level 2.2 mmol/L (0.4-2.0) Calcium Level 7.6 mg/dL (8.5-10.1) Phosphorus Level 2.4 mg/dL (2.6-4.7) Magnesium Level 1.6 mg/dL (1.8-2.4) O2 Saturation 95 % (92-99) Arterial Blood pH 7.49 (7.35-7.45) Arterial Blood pCO2 at Patient Temp 40 mmHg (35-46) Arterial Blood pO2 at Patient Temp 78 mmHg (75-108) Arterial Blood HCO3 29 mmol/L (21-28) Arterial Blood Base Excess 6 mmol/L (-3-3) FiO2 35 Medications Active Scripts Medications Dose Route/Sig Max Daily Dose Days Date Category Comments cxr IMPRESSION: 1. Mild pulmonary edema. Aeration is improved but the inspiration remains small. CT chest IMPRESSION: Infiltrates with air bronchograms posterior medially at the right lung base without change. Moderate left pleural effusion with atelectasis or infiltrate at the left lung base without significant change. Continued presence of an enlarged edematous pancreas with inflammatory changes in the mesentery consistent with history of necrotic pancreatitis and showing some mild improvement. Continued presence of drainage tubes in the upper abdomen with no significant fluid collections surrounding the tips of these tubes. There is however still some free fluid present in the abdomen abdomen. Soft tissue process anteriorly within the cardiac fat pad which appears slightly more prominent than on previous examination and may reflect an inflammatory process. Impression . IMPRESSION: 1. Acute hypoxemic respiratory failure, multifactorial, 2. Acute gallstone pancreatitis./ Necrosis. s/p Exploratory laparotomy, pancreatic necrosectomy, cholecystostomy tube placement, Gastrostomy placement with jejunal extension, tracheostomy placement (specifically 8 shiley cuffed) 06/21 3. Acute kidney failure. improving 4. Metabolic toxic encephalopathy. 5. Hyperkalemia.corrected 6. Metabolic / respiratory acidosis 7. Hypocalcemia. 8. POSSIBLE ABD COMPARTMENT SYNDROME , s/p Exp lap 9. HEP B S POSITIVE 10. Hypernatremia, resolved 11. LLL small effusion, monitor 12. FEVER PER ID, improvement afebrile the last 48 hours 13. Occlusive thrombus within the cephalic vein no DVT on ultrasound right Repeat CT Infiltrates with air bronchograms posterior medially at the right lung base without change. Moderate left pleural effusion with atelectasis or infiltrate at the left lung base without significant change. Continued presence of an enlarged edematous pancreas with inflammatory changes in the mesentery consistent with history of necrotic pancreatitis and showing some mild improvement. Continued presence of drainage tubes in the upper abdomen with no significant fluid collections surrounding the tips of these tubes. There is however still some free fluid present in the abdomen abdomen. Soft tissue process anteriorly within the cardiac fat pad which appears slightly more prominent than on previous examination and may reflect an inflammatory process. Plan . Contine AVAPS at current settings, not ready fro CPAP trail 2/2 inability to reduce sedation very difficult to wean sedation. cont. propofol,PRN [employer] Antibiotics per ID Any further CT abdomen, will defer to ID and surgery Follow surgery input Nutrition per TPN Monitor Hb DVT GI prophylaxis Plan for LTAC transfer today. Case Management following to assist Case discussed with RN D/E RT and PCP TAYA PEREIRA MD Jul 21, 2019 09:41
--- NOTE | 2019-07-21 11:18 | NUR ---
SW following. Discussed with Dr. Dawson, pt can be transferred to [facility] when bed available. LETICIA spoke with Cristina at [facility], they possibly will have a bed available tomorrow (07/22/2019). transit plannerYanni faxed clinicals to [facility]. LETICIA will continue to follow.
--- NOTE | 2019-07-21 11:58 | PDOC ---
Objective: Objective: Reviewed chart - to LTAC today? difficult to wean sedation Vital Signs: Vital Signs Date Time Temp Pulse Resp B/P (MAP) Pulse Ox O2 Delivery O2 Flow Rate FiO2 07/21/19 11:00 100.3 84 31 103/68 (80) 99 Ventilator 100.3 Labs: Laboratory Tests Test 07/20/19 14:35 07/20/19 17:38 07/20/19 21:17 07/20/19 23:50 Urine Collection Type U cath Urine Color Dk yellow Urine Clarity Clear Urine pH 6.0 Urine Specific [place] 1.020 Urine Protein 100 mg/dL Urine Glucose (UA) Negative mg/dL Urine Ketones (Stick) Negative mg/dL Urine Blood Moderate Urine Nitrite Negative Urine Bilirubin Small Urine Urobilinogen Dipstick 0.2 mg/dL Urine Leukocyte Esterase Trace Urine RBC 20-40 /HPF Urine WBC Rare /HPF Urine Bacteria 0 /HPF Urine Mucus Slight /LPF Glucose (Fingerstick) 197 mg/dL 201 mg/dL 231 mg/dL Test 07/21/19 05:20 07/21/19 05:45 07/21/19 07:20 Glucose (Fingerstick) 191 mg/dL White Blood Count 10.9 x10^3/uL Red Blood Count 2.66 x10^6/uL Hemoglobin 7.6 g/dL Hematocrit 23.7 % Mean Corpuscular Volume 89 fL Mean Corpuscular Hemoglobin 29 pg Mean Corpuscular Hemoglobin Concent 32 g/dL Red Cell Distribution Width 15.9 % Platelet Count 364 x10^3/uL Sodium Level 138 mmol/L Potassium Level 4.0 mmol/L Chloride Level 102 mmol/L Carbon Dioxide Level 28 mmol/L Anion Gap 8 Blood Urea Nitrogen 20 mg/dL Creatinine 0.8 mg/dL Estimated GFR (Cockcroft-Gault) 124.3 Glucose Level 182 mg/dL Lactic Acid Level 2.2 mmol/L Calcium Level 7.6 mg/dL Phosphorus Level 2.4 mg/dL Magnesium Level 1.6 mg/dL O2 Saturation 95 % Arterial Blood pH 7.49 Arterial Blood pCO2 at Patient Temp 40 mmHg Arterial Blood pO2 at Patient Temp 78 mmHg Arterial Blood HCO3 29 mmol/L Arterial Blood Base Excess 6 mmol/L FiO2 35 ORDERED: ANAER/AEROB/GS COMMENTS: Has specimen been collected/obtained? Y - Procedure Result ANAEROBIC-AEROBIC CULTURE Final Final report ANAEROBIC RES 1 Final Comment No anaerobic growth in 72 hours. AEROBIC CULT Final Final report AEROBIC RES 1 Final Comment No growth in 56 - 72 hours. GRAM STAIN Final Final report GRAM STAIN RES 1 Final Comment No white blood cells seen. GRAM STAIN RES 2 Final No organisms seen BLOOD CULTURE Preliminary NO GROWTH AFTER 4 DAYS Imaging: CXR 07/20 IMPRESSION: 1. Mild pulmonary edema. Aeration is improved but the inspiration remains small. PE: GEN: NAD LUNGS: clear, vent/trach HEART: RRR ABD: quiet, soft NEURO/PSYCH: sedated A/P: S/p pancreatic necrosectomy, MOSF, fever -- Continue support. Hemodynamically unstable?: No Is patient in severe pain?: No Is NPO status required?: Yes PAXTON ALEXANDER Jul 21, 2019 11:58
[2019-07-21] MEDS: TPN PER PHARMACY MC PRN (12:09)
--- NOTE | 2019-07-21 12:09 | NUR ---
pt received supplement dose of magnesium this am as per dr carpenter.. dose ordered by dr willi garcia held. pt given dose of ativan this am to keep pt calm on ventilator. pt being screened for LTAC. Spoke to pauline Bolton A. Desai, nephrology, Willi Garcia, infection and Dr. Owen about transfer to LTAC.
--- NOTE | 2019-07-21 12:11 | NUR ---
Pharmacy TPN Dosing Note S: CHRISTOPHER NEWSOME is a 49 year old M Currently receiving Central Continuous TPN started 06/19/19 B:Pertinent PMH: PANCREATITIS Height: 5 feet, 9 inches Weight: 110.0 kg Current diet: NPO LABS: Sodium: 138 Potassium: 4 Chloride: 102 Calcium: 7.6 Corrected Calcium: 9.92 Magnesium: 1.6 CO2: 28 SCr: 0.8 Glucose: 182-231 Albumin: 1.1 AST: 58 ALT: 45 TPN FORMULA: TPN TYPE: Central Continuous AMINO ACIDS: 145 gm DEXTROSE: 285 gm LIPIDS: -- gm SODIUM CHLORIDE: mEq SODIUM ACETATE: mEq SODIUM PHOSPHATE: - mmol POTASSIUM CHLORIDE: mEq POTASSIUM ACETATE: - mEq POTASSIUM PHOSPHATE: 28 mmol MAGNESIUM: 18 mEq CALCIUM: 10 mEq INSULIN: - units MULTIPLE VITAMIN: 10 ml TRACE ELEMENTS: 0.5 ml(s) TPN PLAN: Labs mostly stable. Phos and mag trending down. Magnesium 2 g rider given per ICU electrolyte replacement protocol and 3 meq increase in TPN (15 to 18 meq). Increased Kphos from 23 to 28 meq. BMP, phos, mg if pt still here. R: Continue TPN as above. Will monitor electrolytes, glucose, and tolerance to TPN. RENEE [facility]ET[facility], 07/21/19 1211
--- NOTE | 2019-07-21 12:29 | PDOC ---
Infectious Disease Note Subjective: Subjective PT continues to remain febrile T max 102 back on vent diff weaning off vent Vital Signs: Vital Signs Vital Signs Date Time Temp Pulse Resp B/P (MAP) Pulse Ox O2 Delivery O2 Flow Rate FiO2 07/21/19 12:00 84 38 101/66 (78) 97 Ventilator 07/21/19 11:00 100.3 100.3 Physical Exam: PHYSICAL EXAM GENERAL: Sedated, trached/vent, HEENT: Pupils equal reactive NECK: Trach LUNGS: Diminished aeration bases HEART: S1, S2, regular ABDOMEN: Distended, bowel sounds quiet, multiple drains, wound vac in place : [place] in place EXTREMITIES: 1+ edema, no cyanosis. SCDs bilaterally SKIN: Warm, moist. 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 CAMP ASSISTANT: Sedated Tunnelled RIJ (07/16) clean. Medications: Inpatient Meds: Current Medications Medications (Trade) Dose Ordered Sig/Jesse Start Time Stop Time Status Last Admin Dose Admin Acetaminophen (Tylenol Supp) 650 mg PRN Q6HRS PRN 06/14/19 20:00 07/19/19 17:25 650 MG Albumin Human 500 ml @ As Directed STK-MED ONCE 06/22/19 13:25 06/22/19 13:25 DC Albuterol Sulfate (Ventolin Neb Soln) 2.5 mg RTQID 06/22/19 08:00 07/21/19 07:21 2.5 MG Amino Acids/ Electrolytes/ Dextrose 1,000 ml @ 80 mls/hr [id number] 06/12/19 10:15 06/18/19 13:50 DC Amino Acids/ Glycerin/ Electrolytes 1,000 ml @ 80 mls/hr [id number] 06/12/19 10:00 UNV Atropine Sulfate (ATROPINE 0.5mg SYRINGE) 0.5 mg PRN Q5MIN PRN 06/26/19 19:00 Bisacodyl (Dulcolax Supp) 10 mg PRN DAILY PRN 07/17/19 10:15 Calcium Chloride 2000 mg/Sodium Chloride 120 ml @ 240 mls/hr PRN QID PRN 06/14/19 10:15 06/15/19 09:58 DC 06/15/19 08:32 240 MLS/HR Calcium Gluconate (Calcium Gluconate) 1,000 mg 1X ONCE 06/22/19 19:45 06/22/19 20:15 DC Calcium Gluconate 1000 mg/Sodium Chloride 110 ml @ 220 mls/hr 1X ONCE 06/22/19 20:15 06/22/19 20:44 DC 06/22/19 20:36 220 MLS/HR Calcium Gluconate 5000 mg/Sodium Chloride 250 ml @ 28.782 mls/ hr CONT PRN 06/15/19 09:30 06/18/19 13:50 DC 06/18/19 06:12 28.782 MLS/HR Calcium Gluconate 13805 mg/Sodium Chloride 494 ml @ 4.051 mls/ hr CONT PRN 06/15/19 09:30 06/15/19 09:23 DC Cefepime HCl (Maxipime) 2 gm Q8HRS 07/06/19 22:00 07/20/19 12:59 DC 07/20/19 06:37 2 GM Cefoxitin Sodium (Mefoxin) 2 gm 1X PREOP ONCE 06/22/19 11:30 06/22/19 11:31 DC 06/22/19 11:37 2 GM Cellulose (Surgicel Hemostat 4x8) 1 each STK-MED ONCE 06/22/19 12:46 06/22/19 14:25 DC 06/22/19 12:46 1 EACH Chlorhexidine Gluconate (Peridex) 15 ml BID 06/14/19 21:00 07/01/19 16:34 DC 06/30/19 20:47 15 ML Daptomycin 510 mg/ Sodium Chloride 50 ml @ 100 mls/hr Q24H 07/20/19 15:00 07/20/19 16:08 100 MLS/HR Daptomycin 520 mg/ Sodium Chloride 50 ml @ 100 mls/hr Q24H 07/03/19 10:00 07/14/19 09:26 DC 07/13/19 09:57 100 MLS/HR Dexamethasone Sodium Phosphate (Decadron) 4 mg STK-MED ONCE 06/22/19 11:45 06/22/19 11:45 DC Dexmedetomidine HCl 400 mcg/ Sodium Chloride 100 ml @ 0 mls/hr CONT PRN 06/26/19 19:00 07/21/19 09:54 32.6 MLS/HR Dextrose (Dextrose 50%-Water Syringe) 12.5 gm PRN Q15MIN PRN 07/03/19 10:30 Enoxaparin Sodium (Lovenox 40mg Syringe) 40 mg Q24H 06/23/19 06:00 07/21/19 05:56 40 MG Etomidate (Amidate) 14 mg 1X ONCE 06/14/19 13:00 06/14/19 13:01 DC 06/14/19 12:59 14 MG Fentanyl Citrate (Fentanyl 2ml Vial) 100 mcg 1X ONCE 06/14/19 13:00 06/14/19 13:01 DC 06/14/19 12:58 100 MCG Fentanyl Citrate (Fentanyl 50 Mcg/ ml HEAD BANQUET WAITER/WAITRESS Syringe) 2,750 mcg STK-MED ONCE 07/13/19 22:45 07/17/19 15:58 DC Fentanyl Citrate (Fentanyl 600 Mcg/30 ml HEAD [employer] WAITER/WAITRESS) 600 mcg STK-MED ONCE 06/15/19 05:30 06/18/19 12:07 DC Fluconazole/ Sodium Chloride 100 ml @ 100 mls/hr Q24H 07/17/19 08:00 07/20/19 12:59 DC 07/20/19 08:37 100 MLS/HR Furosemide (Lasix) 40 mg DAILY 06/27/19 12:00 07/21/19 08:12 40 MG Heparin Sodium (Porcine) (Hep Lock Adult) 500 unit STK-MED ONCE 07/18/19 09:27 07/18/19 09:27 DC Hydralazine HCl (Apresoline Inj) 10 mg PRN Q4HRS PRN 06/19/19 11:45 07/15/19 07:33 10 MG Hydromorphone HCl (Dilaudid) 1 mg PRN Q2HRS PRN 06/11/19 12:00 07/15/19 07:36 1 MG Info (CONTRAST GIVEN -- Rx MONITORING) 1 each PRN DAILY PRN 07/04/19 14:30 07/06/19 14:29 DC Info (PHARMACY MONITORING -- do not chart) 1 each PRN DAILY PRN 06/14/19 09:00 06/14/19 09:06 DC Info (Tpn Per Pharmacy) 1 each PRN DAILY PRN 06/19/19 11:15 07/21/19 12:09 1 EACH Insulin Glargine (Lantus Syringe) 30 unit BID 07/03/19 11:00 07/21/19 08:13 30 UNIT Insulin Human Lispro (HumaLOG) 0-9 UNITS Q6HRS 07/03/19 12:00 07/21/19 05:57 4 UNITS Insulin Human Regular (HumuLIN R VIAL) 10 unit 1X ONCE 06/22/19 19:45 06/22/19 19:57 DC 06/22/19 20:45 10 UNIT Insulin Human Regular 100 unit/ Sodium Chloride 101 ml @ 0 mls/hr CONT PRN 06/23/19 12:15 07/03/19 10:39 DC 07/02/19 18:55 2 MLS/HR Iohexol (Omnipaque 240 Mg/ml) 10 ml 1X ONCE 07/07/19 14:00 07/07/19 14:01 DC 07/07/19 12:50 10 ML Iohexol (Omnipaque 300 Mg/ml) 75 ml 1X ONCE 06/22/19 08:00 06/22/19 08:01 Cancel Iohexol (Omnipaque 350 Mg/ml) 100 ml 1X ONCE 06/11/19 04:45 06/11/19 04:46 DC 06/11/19 05:01 100 ML Labetalol HCl (Normodyne Iv Push) 20 mg PRN Q2HR PRN 06/19/19 11:45 06/26/19 14:44 20 MG Lidocaine HCl (Buffered Lidocaine 1%) 3 ml STK-MED ONCE 07/11/19 13:56 07/11/19 14:13 DC Lidocaine HCl (Lidocaine Pf 2% Vial) 5 ml STK-MED ONCE 06/14/19 12:00 06/17/19 10:37 DC Lidocaine/ Epinephrine (LIDOCAINE 1%-EPI 1:100,000 Multi-Dose) 5 ml 1X ONCE 07/18/19 09:45 07/18/19 09:46 DC 07/18/19 09:46 5 ML Linezolid/Dextrose 300 ml @ 300 mls/hr Q12HR 07/04/19 09:00 07/20/19 12:59 DC 07/20/19 09:36 300 MLS/HR Lorazepam (Ativan Inj) 2 mg PRN Q6HRS PRN 07/21/19 08:30 07/21/19 09:33 2 MG Magnesium Sulfate 50 ml @ 25 mls/hr ONCE ONCE 4/6/20 12:00 07/21/19 13:59 Meropenem 500 mg/ Sodium Chloride 50 ml @ 100 mls/hr Q6HRS 07/20/19 18:00 07/21/19 08:19 100 MLS/HR Metoprolol Tartrate (Lopressor Vial) 5 mg PRN Q6HRS PRN 07/15/19 12:30 Metronidazole 100 ml @ 100 mls/hr Q8HRS 07/06/19 22:00 07/20/19 12:59 DC 07/20/19 06:37 100 MLS/HR Micafungin Sodium 100 mg/Dextrose 100 ml @ 100 mls/hr Q24H 06/20/19 09:00 07/07/19 09:51 DC 07/07/19 08:19 100 MLS/HR Midazolam HCl (Versed) 5 mg 1X ONCE 06/14/19 13:00 06/14/19 13:01 DC 06/14/19 12:59 5 MG Midazolam HCl 100 mg/Sodium Chloride 100 ml @ 9 mls/hr CONT PRN 07/13/19 15:00 07/18/19 00:29 9 MLS/HR Midazolam HCl 50 mg/Sodium Chloride 50 ml @ 0 mls/hr CONT PRN 06/14/19 12:45 07/13/19 14:59 DC 07/13/19 10:19 9 MLS/HR Morphine Sulfate (Morphine Sulfate) 1 mg PRN Q1HR PRN 06/22/19 15:45 07/15/19 08:48 1 MG Multi-Ingred Cream/Lotion/Oil/ Oint (Artificial Tears Eye Ointment) 1 devorah PRN Q1HR PRN 07/08/19 10:30 Naloxone HCl (Narcan) 0.4 mg PRN Q2MIN PRN 06/22/19 15:45 07/15/19 07:58 0.4 MG Nicardipine HCl 50 mg/Sodium Chloride 250 ml @ 25 mls/hr CONT PRN 06/18/19 11:45 07/13/19 15:06 DC Norepinephrine Bitartrate 8 mg/ Dextrose 258 ml @ 20.027 mls/ hr CONT PRN 06/14/19 10:30 06/14/19 10:31 20.027 MLS/HR Nystatin (Nystop) 1 devorah PRN QID PRN 06/11/19 23:15 06/11/19 23:19 1 DEVORAH Ondansetron HCl (Zofran) 4 mg PRN Q6HRS PRN 06/22/19 15:45 Pantoprazole Sodium (PROTONIX VIAL for IV PUSH) 40 mg [id number] 06/13/19 21:00 07/21/19 05:56 40 MG Piperacillin Sod/ Tazobactam Sod (Zosyn Per Pharmacy) 1 each PRN DAILY PRN 06/12/19 13:15 06/12/19 19:16 DC Piperacillin Sod/ Tazobactam Sod 2.25 gm/Sodium Chloride 50 ml @ 100 mls/hr Q6HRS 06/12/19 13:30 06/12/19 19:15 DC 06/12/19 13:48 100 MLS/HR Potassium Chloride/Water 100 ml @ 50 mls/hr 1X ONCE 06/29/19 09:00 06/29/19 10:59 DC 06/29/19 08:57 50 MLS/HR Potassium Phosphate 10 mmol/ Magnesium Sulfate 5 meq/Calcium Gluconate 15 meq/ Multivitamins 10 ml/Chromium/ Copper/Manganese/ Seleni/Zn 0.5 ml/ Potassium Acetate 10 meq/Total Parenteral Nutrition/Amino Acids/Dextrose 1,920 ml @ 80 mls/hr TPN CONT 07/02/19 22:00 07/03/19 21:59 DC 07/02/19 21:36 80 MLS/HR Potassium Phosphate 10 mmol/ Magnesium Sulfate 5 meq/Calcium Gluconate 15 meq/ Multivitamins 10 ml/Chromium/ Copper/Manganese/ Seleni/Zn 0.5 ml/ Potassium Acetate 20 meq/Total Parenteral Nutrition/Amino Acids/Dextrose 1,920 ml @ 80 mls/hr TPN CONT 06/30/19 22:00 07/01/19 21:59 DC 06/30/19 21:38 80 MLS/HR Potassium Phosphate 10 mmol/ Magnesium Sulfate 5 meq/Calcium Gluconate 15 meq/ Multivitamins 10 ml/Chromium/ Copper/Manganese/ Seleni/Zn 0.5 ml/ Potassium Acetate 20 meq/Total Parenteral Nutrition/Amino Acids/Dextrose/ Fat Emulsion Intravenous 1,920 ml @ 80 mls/hr TPN CONT 06/29/19 22:00 06/30/19 21:59 DC 06/29/19 21:32 80 MLS/HR Potassium Phosphate 10 mmol/ Magnesium Sulfate 5 meq/Calcium Gluconate 15 meq/ Multivitamins 10 ml/Chromium/ Copper/Manganese/ Seleni/Zn 0.5 ml/ Total Parenteral Nutrition/Amino Acids/Dextrose/ Fat Emulsion Intravenous 1,920 ml @ 80 mls/hr TPN CONT 06/27/19 22:00 06/28/19 21:59 DC 06/27/19 21:38 80 MLS/HR Potassium Phosphate 13.6 mmol/Calcium Gluconate 20 meq/ Multivitamins 10 ml/Chromium/ Copper/Manganese/ Seleni/Zn 0.5 ml/ Insulin Human Regular 10 unit/ Total Parenteral Nutrition/Amino Acids/Dextrose/ Fat Emulsion Intravenous 1,920 ml @ 80 mls/hr TPN CONT 06/21/19 22:00 06/22/19 21:59 DC 06/21/19 21:31 80 MLS/HR Potassium Phosphate 13.6 mmol/Magnesium Sulfate 10 meq/ Calcium Gluconate 20 meq/ Multivitamins 10 ml/Chromium/ Copper/Manganese/ Seleni/Zn 0.5 ml/ Total Parenteral Nutrition/Amino Acids/Dextrose/ Fat Emulsion Intravenous 1,920 ml @ 80 mls/hr TPN CONT 06/19/19 22:00 06/20/19 21:59 DC 06/19/19 21:31 80 MLS/HR Potassium Phosphate 13.6 mmol/Magnesium Sulfate 5 meq/ Calcium Gluconate 20 meq/ Multivitamins 10 ml/Chromium/ Copper/Manganese/ Seleni/Zn 0.5 ml/ Total Parenteral Nutrition/Amino Acids/Dextrose/ Fat Emulsion Intravenous 1,920 ml @ 80 mls/hr TPN CONT 06/22/19 22:00 06/23/19 21:59 DC 06/22/19 22:14 80 MLS/HR Potassium Phosphate 23 mmol/ Magnesium Sulfate 15 meq/Calcium Gluconate 10 meq/ Multivitamins 10 ml/Chromium/ Copper/Manganese/ Seleni/Zn 0.5 ml/ Total Parenteral Nutrition/Amino Acids/Dextrose 1,920 ml @ 80 mls/hr TPN CONT 07/20/19 22:00 07/21/19 21:59 07/20/19 21:26 80 MLS/HR Potassium Phosphate 23 mmol/ Magnesium Sulfate 15 meq/Calcium Gluconate 10 meq/ Multivitamins 10 ml/Chromium/ Copper/Manganese/ Seleni/Zn 0.5 ml/ Total Parenteral Nutrition/Amino Acids/Dextrose/ Fat Emulsion Intravenous 1,920 ml @ 80 mls/hr TPN CONT 07/18/19 22:00 07/19/19 21:59 DC 07/18/19 21:48 80 MLS/HR Potassium Phosphate 28 mmol/ Magnesium Sulfate 18 meq/Calcium Gluconate 10 meq/ Multivitamins 10 ml/Chromium/ Copper/Manganese/ Seleni/Zn 0.5 ml/ Total Parenteral Nutrition/Amino Acids/Dextrose 1,920 ml @ 80 mls/hr TPN CONT 07/21/19 22:00 07/22/19 21:59 Potassium Acetate 10 meq/Potassium Phosphate 10 mmol/ Magnesium Sulfate 5 meq/Calcium Gluconate 15 meq/ Multivitamins 10 ml/Chromium/ Copper/Manganese/ Seleni/Zn 0.5 ml/ Total Parenteral Nutrition/Amino Acids/Dextrose 1,920 ml @ 80 mls/hr TPN CONT 07/06/19 22:00 07/07/19 21:59 DC 07/06/19 22:51 80 MLS/HR Potassium Acetate 10 meq/Potassium Phosphate 10 mmol/ Magnesium Sulfate 10 meq/Calcium Gluconate 10 meq/ Multivitamins 10 ml/Chromium/ Copper/Manganese/ Seleni/Zn 0.5 ml/ Total Parenteral Nutrition/Amino Acids/Dextrose 1,920 ml @ 80 mls/hr TPN CONT 07/07/19 22:00 07/08/19 21:59 DC 07/07/19 21:50 80 MLS/HR Potassium Acetate 10 meq/Potassium Phosphate 10 mmol/ Magnesium Sulfate 10 meq/Calcium Gluconate 10 meq/ Multivitamins 10 ml/Chromium/ Copper/Manganese/ Seleni/Zn 0.5 ml/ Total Parenteral Nutrition/Amino Acids/Dextrose/ Fat Emulsion Intravenous 1,635 ml @ 68.125 mls/ hr TPN CONT 07/08/19 22:00 07/09/19 21:59 DC 07/08/19 21:47 68.125 MLS/HR Potassium Acetate 15 meq/Potassium Phosphate 15 mmol/ Magnesium Sulfate 10 meq/Calcium Gluconate 10 meq/ Multivitamins 10 ml/Chromium/ Copper/Manganese/ Seleni/Zn 0.5 ml/ Total Parenteral Nutrition/Amino Acids/Dextrose/ Fat Emulsion Intravenous 1,920 ml @ 80 mls/hr TPN CONT 07/14/19 22:00 07/15/19 21:59 DC 07/14/19 22:16 80 MLS/HR Potassium Acetate 15 meq/Potassium Phosphate 18 mmol/ Magnesium Sulfate 15 meq/Calcium Gluconate 10 meq/ Multivitamins 10 ml/Chromium/ Copper/Manganese/ Seleni/Zn 0.5 ml/ Total Parenteral Nutrition/Amino Acids/Dextrose/ Fat Emulsion Intravenous 1,920 ml @ 80 mls/hr TPN CONT 07/16/19 22:00 07/17/19 21:59 DC 07/16/19 22:08 80 MLS/HR Prochlorperazine Edisylate (Compazine) 10 mg PRN Q8HRS PRN 06/11/19 12:00 06/12/19 14:59 10 MG Propofol 100 ml @ 6.588 mls/ hr CONT PRN 06/27/19 12:00 07/21/19 09:55 31.5 MLS/HR Ringer's Solution 1,000 ml @ 100 mls/hr Q10H 06/22/19 15:39 06/24/19 17:46 DC 06/23/19 22:06 100 MLS/HR Rocuronium [place] (Zemuron) 50 mg STK-MED ONCE 06/22/19 14:52 06/22/19 14:52 DC Sevoflurane (Ultane) 90 ml STK-MED ONCE 06/22/19 13:53 06/22/19 13:53 DC Sodium Bicarbonate 50 meq/Sodium Chloride 1,050 ml @ 150 mls/hr Q7H 06/12/19 11:00 06/13/19 14:48 DC 06/13/19 04:16 150 MLS/HR Sodium Bicarbonate (Sodium Bicarb Adult 8.4% Syr) 50 meq 1X ONCE 06/26/19 19:30 06/26/19 19:23 DC Sodium Chloride 500 ml @ 500 mls/hr 1X PRN PRN 06/26/19 19:00 Sodium Chloride (Normal Saline Flush) 3 ml QSHIFT PRN 06/22/19 15:45 Sodium Phosphate 10 mmol/Magnesium Sulfate 5 meq/ Calcium Gluconate 15 meq/ Multivitamins 10 ml/Chromium/ Copper/Manganese/ Seleni/Zn 0.5 ml/ Insulin Human Regular 10 unit/ Total Parenteral Nutrition/Amino Acids/Dextrose/ Fat Emulsion Intravenous 1,920 ml @ 80 mls/hr TPN CONT 06/23/19 22:00 06/24/19 21:59 DC 06/23/19 22:20 80 MLS/HR Sodium Phosphate 10 mmol/Magnesium Sulfate 5 meq/ Calcium Gluconate 15 meq/ Multivitamins 10 ml/Chromium/ Copper/Manganese/ Seleni/Zn 0.5 ml/ Total Parenteral Nutrition/Amino Acids/Dextrose/ Fat Emulsion Intravenous 1,920 ml @ 80 mls/hr TPN CONT 06/27/19 22:00 06/27/19 12:55 DC Sodium Phosphate 15 mmol/Sodium Chloride 105 ml @ 105 mls/hr 1X ONCE 07/16/19 14:00 07/16/19 14:59 DC 07/16/19 12:33 105 MLS/HR Sodium Phosphate 20 mmol/Sodium Chloride 256.6667 ml @ 64.167 m... 1X ONCE 07/17/19 14:00 07/17/19 17:59 DC 07/17/19 14:50 64.167 MLS/HR Succinylcholine Chloride (Anectine) 200 mg 1X ONCE 06/14/19 13:00 06/14/19 13:01 DC 06/14/19 12:59 200 MG Vecuronium [place] 50 mg/ Miscellaneous 50 ml @ 4.925 mls/ hr CONT PRN 06/22/19 15:00 06/25/19 05:19 4.925 MLS/HR Labs: Lab Laboratory Tests Test 07/20/19 14:35 07/20/19 17:38 07/20/19 21:17 07/20/19 23:50 Urine Collection Type U cath Urine Color Dk yellow Urine Clarity Clear Urine pH 6.0 (<5.0-8.0) Urine Specific [place] 1.020 (1.000-1.030) Urine Protein 100 mg/dL (NEG-TRACE) Urine Glucose (UA) Negative mg/dL (NEG) Urine Ketones (Stick) Negative mg/dL (NEG) Urine Blood Moderate (NEG) Urine Nitrite Negative (NEG) Urine Bilirubin Small (NEG) Urine Urobilinogen Dipstick 0.2 mg/dL (0.2 mg/dL) Urine Leukocyte Esterase Trace (NEG) Urine RBC 20-40 /HPF (0-2) Urine WBC Rare /HPF (0-4) Urine Bacteria 0 /HPF (0-FEW) Urine Mucus Slight /LPF Glucose (Fingerstick) 197 mg/dL (70-99) 201 mg/dL (70-99) 231 mg/dL (70-99) Test 07/21/19 05:20 07/21/19 05:45 07/21/19 07:20 07/21/19 12:05 Glucose (Fingerstick) 191 mg/dL (70-99) 134 mg/dL (70-99) White Blood Count 10.9 x10^3/uL (4.0-11.0) Red Blood Count 2.66 x10^6/uL (4.30-5.70) Hemoglobin 7.6 g/dL (13.0-17.5) Hematocrit 23.7 % (39.0-53.0) Mean Corpuscular Volume 89 fL (79-100) Mean Corpuscular Hemoglobin 29 pg (25-35) Mean Corpuscular Hemoglobin Concent 32 g/dL (31-37) Red Cell Distribution Width 15.9 % (11.5-14.5) Platelet Count 364 x10^3/uL (140-400) Sodium Level 138 mmol/L (136-145) Potassium Level 4.0 mmol/L (3.5-5.1) Chloride Level 102 mmol/L (98-107) Carbon Dioxide Level 28 mmol/L (21-32) Anion Gap 8 (6-14) Blood Urea Nitrogen 20 mg/dL (8-26) Creatinine 0.8 mg/dL (0.7-1.3) Estimated GFR (Cockcroft-Gault) 124.3 Glucose Level 182 mg/dL (70-99) Lactic Acid Level 2.2 mmol/L (0.4-2.0) Calcium Level 7.6 mg/dL (8.5-10.1) Phosphorus Level 2.4 mg/dL (2.6-4.7) Magnesium Level 1.6 mg/dL (1.8-2.4) O2 Saturation 95 % (92-99) Arterial Blood pH 7.49 (7.35-7.45) Arterial Blood pCO2 at Patient Temp 40 mmHg (35-46) Arterial Blood pO2 at Patient Temp 78 mmHg (75-108) Arterial Blood HCO3 29 mmol/L (21-28) Arterial Blood Base Excess 6 mmol/L (-3-3) FiO2 35 Objective: Assessment: Fever cult neg so far Leukocytosis resolved Gallbladder stone pancreatitis s/p expl lap, pancreatic necrosectomy, cholecystostomy tube placement, G-tube placement with jejunal extension, 06/21 Loculated fluid collection along the anterior aspect of the pancreas measures 3.0 x 2.6 cm and fluid collection along the inferior aspect of the stomach measures 9.6 x 4.0 cm, on CT 06/[address] 07/03 with loculated fluid collection, drainage tube readjusted Sepsis from GI - cult neg Acute Resp failure - s/p trach 06/21 Lactic acidosis. Acute kidney injury previously requiring dialysis - HDC removed Metabolic acidosis. Hypocalcemia Plan: Plan of Care cont merrem and micafungin ( 07/19) was on cefepime,flagyl, zyvox and fluconazole add daptomycin HDC has been removed only has central powered line UA and UC BC neg from 07/16 Maintain aspiration precaution. Gen surgery following,d/w DR Dawson Critically ill D/W THUY MARTIN MD Jul 21, 2019 12:29
[2019-07-21] MEDS ORDERED: DAPTOMYCIN IV SCH (14:00)
[2019-07-21] MEDS ORDERED: NORMAL SALINE IV SCH (14:00)
--- NOTE | 2019-07-21 14:49 | NUR ---
spoke with pts Deacon on telephone. discussed pt moving to [facility] tomorrow. pts then talked to dr pro via phone. coming to see pt this afternoon.
[2019-07-21] MEDS: IV NORMAL SALINE 1000ML BAG 1,000 ML IV SCH (15:39)
[2019-07-21] MEDS: DAPTOmycin (GENERIC) IVPB 510 MG in IV NORMAL SALINE 50ML 50 ML IV SCH (15:57)
--- NOTE | 2019-07-21 18:19 | PDOC ---
SURGICAL PROGRESS NOTE Subjective Pt intubated and sedated. Remains stable. Vital Signs Vital Signs Date Time Temp Pulse Resp B/P (MAP) Pulse Ox O2 Delivery O2 Flow Rate FiO2 07/21/19 18:04 99 Ventilator 07/21/19 18:01 84 23 114/69 (84) 07/21/19 16:00 99.8 99.8 I&O Intake and Output 07/21/19 07:00 Intake Total 4100.4 ml Output Total 3695 ml Balance 405.4 ml IV Total 3558.4 ml Tube Feeding 242 ml Other 300 ml Output Urine Total 3435 ml Gastric Drainage Total 0 ml Drainage Total 260 ml General: No acute distress Abdomen: Soft, No tenderness Labs Laboratory Tests Test 07/19/19 18:36 07/19/19 23:27 07/20/19 05:50 07/20/19 06:30 Glucose (Fingerstick) 139 mg/dL (70-99) 177 mg/dL (70-99) 225 mg/dL (70-99) White Blood Count 9.6 x10^3/uL (4.0-11.0) Red Blood Count 2.45 x10^6/uL (4.30-5.70) Hemoglobin 7.2 g/dL (13.0-17.5) Hematocrit 21.7 % (39.0-53.0) Mean Corpuscular Volume 89 fL (79-100) Mean Corpuscular Hemoglobin 29 pg (25-35) Mean Corpuscular Hemoglobin Concent 33 g/dL (31-37) Red Cell Distribution Width 15.8 % (11.5-14.5) Platelet Count 325 x10^3/uL (140-400) Neutrophils (%) (Auto) 75 % (31-73) Lymphocytes (%) (Auto) 13 % (24-48) Monocytes (%) (Auto) 11 % (0-9) Eosinophils (%) (Auto) 1 % (0-3) Basophils (%) (Auto) 0 % (0-3) Neutrophils # (Auto) 7.3 x10^3/uL (1.8-7.7) Lymphocytes # (Auto) 1.2 x10^3/uL (1.0-4.8) Monocytes # (Auto) 1.0 x10^3/uL (0.0-1.1) Eosinophils # (Auto) 0.1 x10^3/uL (0.0-0.7) Basophils # (Auto) 0.0 x10^3/uL (0.0-0.2) Test 07/20/19 07:30 07/20/19 11:38 07/20/19 14:35 07/20/19 17:38 O2 Saturation 97 % (92-99) Arterial Blood pH 7.46 (7.35-7.45) Arterial Blood pCO2 at Patient Temp 41 mmHg (35-46) Arterial Blood pO2 at Patient Temp 94 mmHg (75-108) Arterial Blood HCO3 28 mmol/L (21-28) Arterial Blood Base Excess 4 mmol/L (-3-3) FiO2 35 Glucose (Fingerstick) 194 mg/dL (70-99) 197 mg/dL (70-99) Urine Collection Type U cath Urine Color Dk yellow Urine Clarity Clear Urine pH 6.0 (<5.0-8.0) Urine Specific [place] 1.020 (1.000-1.030) Urine Protein 100 mg/dL (NEG-TRACE) Urine Glucose (UA) Negative mg/dL (NEG) Urine Ketones (Stick) Negative mg/dL (NEG) Urine Blood Moderate (NEG) Urine Nitrite Negative (NEG) Urine Bilirubin Small (NEG) Urine Urobilinogen Dipstick 0.2 mg/dL (0.2 mg/dL) Urine Leukocyte Esterase Trace (NEG) Urine RBC 20-40 /HPF (0-2) Urine WBC Rare /HPF (0-4) Urine Bacteria 0 /HPF (0-FEW) Urine Mucus Slight /LPF Test 07/20/19 21:17 07/20/19 23:50 07/21/19 05:20 07/21/19 05:45 Glucose (Fingerstick) 201 mg/dL (70-99) 231 mg/dL (70-99) 191 mg/dL (70-99) White Blood Count 10.9 x10^3/uL (4.0-11.0) Red Blood Count 2.66 x10^6/uL (4.30-5.70) Hemoglobin 7.6 g/dL (13.0-17.5) Hematocrit 23.7 % (39.0-53.0) Mean Corpuscular Volume 89 fL (79-100) Mean Corpuscular Hemoglobin 29 pg (25-35) Mean Corpuscular Hemoglobin Concent 32 g/dL (31-37) Red Cell Distribution Width 15.9 % (11.5-14.5) Platelet Count 364 x10^3/uL (140-400) Sodium Level 138 mmol/L (136-145) Potassium Level 4.0 mmol/L (3.5-5.1) Chloride Level 102 mmol/L (98-107) Carbon Dioxide Level 28 mmol/L (21-32) Anion Gap 8 (6-14) Blood Urea Nitrogen 20 mg/dL (8-26) Creatinine 0.8 mg/dL (0.7-1.3) Estimated GFR (Cockcroft-Gault) 124.3 Glucose Level 182 mg/dL (70-99) Lactic Acid Level 2.2 mmol/L (0.4-2.0) Calcium Level 7.6 mg/dL (8.5-10.1) Phosphorus Level 2.4 mg/dL (2.6-4.7) Magnesium Level 1.6 mg/dL (1.8-2.4) Test 07/21/19 07:20 07/21/19 12:05 07/21/19 17:25 O2 Saturation 95 % (92-99) Arterial Blood pH 7.49 (7.35-7.45) Arterial Blood pCO2 at Patient Temp 40 mmHg (35-46) Arterial Blood pO2 at Patient Temp 78 mmHg (75-108) Arterial Blood HCO3 29 mmol/L (21-28) Arterial Blood Base Excess 6 mmol/L (-3-3) FiO2 35 Glucose (Fingerstick) 134 mg/dL (70-99) 104 mg/dL (70-99) Laboratory Tests Test 07/20/19 21:17 07/20/19 23:50 07/21/19 05:20 07/21/19 05:45 Glucose (Fingerstick) 201 mg/dL (70-99) 231 mg/dL (70-99) 191 mg/dL (70-99) White Blood Count 10.9 x10^3/uL (4.0-11.0) Red Blood Count 2.66 x10^6/uL (4.30-5.70) Hemoglobin 7.6 g/dL (13.0-17.5) Hematocrit 23.7 % (39.0-53.0) Mean Corpuscular Volume 89 fL (79-100) Mean Corpuscular Hemoglobin 29 pg (25-35) Mean Corpuscular Hemoglobin Concent 32 g/dL (31-37) Red Cell Distribution Width 15.9 % (11.5-14.5) Platelet Count 364 x10^3/uL (140-400) Sodium Level 138 mmol/L (136-145) Potassium Level 4.0 mmol/L (3.5-5.1) Chloride Level 102 mmol/L (98-107) Carbon Dioxide Level 28 mmol/L (21-32) Anion Gap 8 (6-14) Blood Urea Nitrogen 20 mg/dL (8-26) Creatinine 0.8 mg/dL (0.7-1.3) Estimated GFR (Cockcroft-Gault) 124.3 Glucose Level 182 mg/dL (70-99) Lactic Acid Level 2.2 mmol/L (0.4-2.0) Calcium Level 7.6 mg/dL (8.5-10.1) Phosphorus Level 2.4 mg/dL (2.6-4.7) Magnesium Level 1.6 mg/dL (1.8-2.4) Test 07/21/19 07:20 07/21/19 12:05 07/21/19 17:25 O2 Saturation 95 % (92-99) Arterial Blood pH 7.49 (7.35-7.45) Arterial Blood pCO2 at Patient Temp 40 mmHg (35-46) Arterial Blood pO2 at Patient Temp 78 mmHg (75-108) Arterial Blood HCO3 29 mmol/L (21-28) Arterial Blood Base Excess 6 mmol/L (-3-3) FiO2 35 Glucose (Fingerstick) 134 mg/dL (70-99) 104 mg/dL (70-99) Problem List Problems Medical Problems: (1) Acute pancreatitis Status: Acute (2) Nausea & vomiting Status: Acute Assessment/Plan s/p xlap-gradual improvement OK to transfer to LTAC for further support and vent weaning. D/w pt's supportive . KARLA CALL MD Jul 21, 2019 18:19
[2019-07-21] MEDS ORDERED: [UNRECOGNIZED DRUG - OTHER] IV SCH ×7 (22:00)
[2019-07-21] MEDS ORDERED: AMINO ACID IV SCH ×7 (22:00)
[2019-07-21] MEDS ORDERED: TOTAL PARENTERAL NUTRITION IV SCH ×7 (22:00)
[2019-07-21] MEDS ORDERED: DEXTROSE 70% IV SCH ×7 (22:00)
[2019-07-22] VITALS (13 sets, daily range): BP systolic 89–127; BP diastolic 51–83
[2019-07-22] MEDS: MEROPENEM 500 MG in IV NORMAL SALINE 50ML 50 ML IV SCH ×3 (00:41→11:58)
[2019-07-22] MEDS: INSULIN GLARGINE SYRINGE. SQ SCH ×2 (00:47→08:58)
[2019-07-22] MEDS: INSULIN LISPRO 300 UNITS/3 ML VIAL. SQ SCH ×2 (00:48→06:37)
[2019-07-22] MEDS: DEXMEDETOMIDINE 400 MCG in IV NORMAL SALINE 100ML 96 ML IV PRN ×4 (01:13→10:07)
[2019-07-22] MEDS: PROPOFOL 100 ML IV PRN ×4 (02:37→11:19)
[2019-07-22] MEDS: fentaNYL HIGH DOSE PCA 55 ML IV PRN (04:02)
[2019-07-22] MEDS: PANTOPRAZOLE IV PUSH 40 MG VIAL. IVP SCH (06:00)
[2019-07-22] MEDS: ENOXAPARIN 40 MG/0.4 ML SYRINGE. SQ SCH (06:25)
[2019-07-22] MEDS: ALBUTEROL SULFATE 2.5 MG/3 ML NEBU. NEB SCH ×2 (08:00→11:57)
[2019-07-22 08:30] LABS: BASE EXCESS ABG 5 mmol/L (-3-3); HCO3 ABG 30 mmol/L (21-28); PCO2 ABG 48 mmHg (35-46); PO2 ABG 86 mmHg (75-108)
[2019-07-22 08:39] LABS: FIO2 ABG 35
[2019-07-22] MEDS: FUROSEMIDE 40 MG/4 ML VIAL. IVP SCH (08:57)
[2019-07-22 09:07] LABS: HEMATOCRIT 23.2 % (39.0-53.0); HEMOGLOBIN 7.4 g/dL (13.0-17.5); RED BLOOD COUNT 2.61 x10^6/uL (4.30-5.70); RED CELL DISTRIBUTION WIDTH 15.9 % (11.5-14.5)
--- NOTE | 2019-07-22 09:12 | PDOC ---
Infectious Disease Note Subjective: Subjective Pt stable per rn arousable fever resolved last 24 hrs Vital Signs: Vital Signs Vital Signs Date Time Temp Pulse Resp B/P (MAP) Pulse Ox O2 Delivery O2 Flow Rate FiO2 07/22/19 09:00 81 16 127/83 (98) 100 Ventilator 07/22/19 08:00 97.9 97.9 Physical Exam: PHYSICAL EXAM GENERAL arousable HEENT: Pupils equal reactive NECK: Trach + LUNGS: Diminished aeration bases HEART: S1, S2, regular ABDOMEN: Distended, bowel sounds quiet, multiple drains, wound vac in place : [place] in place, EXTREMITIES: 1+ edema, no cyanosis. SCDs bilaterally SKIN: Warm, moist. 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 [employer] GATE: Sedated Tunnelled RIJ (07/16) clean. Medications: Inpatient Meds: Current Medications Medications (Trade) Dose Ordered Sig/Jesse Start Time Stop Time Status Last Admin Dose Admin Acetaminophen (Tylenol Supp) 650 mg PRN Q6HRS PRN 06/14/19 20:00 07/19/19 17:25 650 MG Albumin Human 500 ml @ As Directed STK-MED ONCE 06/22/19 13:25 06/22/19 13:25 DC Albuterol Sulfate (Ventolin Neb Soln) 2.5 mg RTQID 06/22/19 08:00 07/22/19 08:00 2.5 MG Amino Acids/ Electrolytes/ Dextrose 1,000 ml @ 80 mls/hr [id number] 06/12/19 10:15 06/18/19 13:50 DC Amino Acids/ Glycerin/ Electrolytes 1,000 ml @ 80 mls/hr [id number] 06/12/19 10:00 UNV Atropine Sulfate (ATROPINE 0.5mg SYRINGE) 0.5 mg PRN Q5MIN PRN 06/26/19 19:00 Bisacodyl (Dulcolax Supp) 10 mg PRN DAILY PRN 07/17/19 10:15 Calcium Chloride 2000 mg/Sodium Chloride 120 ml @ 240 mls/hr PRN QID PRN 06/14/19 10:15 06/15/19 09:58 DC 06/15/19 08:32 240 MLS/HR Calcium Gluconate (Calcium Gluconate) 1,000 mg 1X ONCE 06/22/19 19:45 3/8/20 20:15 DC Calcium Gluconate 1000 mg/Sodium Chloride 110 ml @ 220 mls/hr 1X ONCE 06/22/19 20:15 06/22/19 20:44 DC 06/22/19 20:36 220 MLS/HR Calcium Gluconate 5000 mg/Sodium Chloride 250 ml @ 28.782 mls/ hr CONT PRN 06/15/19 09:30 06/18/19 13:50 DC 06/18/19 06:12 28.782 MLS/HR Calcium Gluconate 71516 mg/Sodium Chloride 494 ml @ 4.051 mls/ hr CONT PRN 06/15/19 09:30 06/15/19 09:23 DC Cefepime HCl (Maxipime) 2 gm Q8HRS 07/06/19 22:00 07/20/19 12:59 DC 07/20/19 06:37 2 GM Cefoxitin Sodium (Mefoxin) 2 gm 1X PREOP ONCE 06/22/19 11:30 06/22/19 11:31 DC 06/22/19 11:37 2 GM Cellulose (Surgicel Hemostat 4x8) 1 each STK-MED ONCE 06/22/19 12:46 06/22/19 14:25 DC 06/22/19 12:46 1 EACH Chlorhexidine Gluconate (Peridex) 15 ml BID 06/14/19 21:00 07/01/19 16:34 DC 06/30/19 20:47 15 ML Daptomycin 510 mg/ Sodium Chloride 50 ml @ 100 mls/hr Q24H 07/20/19 15:00 07/21/19 15:57 100 MLS/HR Daptomycin 520 mg/ Sodium Chloride 50 ml @ 100 mls/hr Q24H 07/03/19 10:00 07/14/19 09:26 DC 07/13/19 09:57 100 MLS/HR Daptomycin 660 mg/ Sodium Chloride 50 ml @ 100 mls/hr Q24H 07/21/19 14:00 UNV Dexamethasone Sodium Phosphate (Decadron) 4 mg STK-MED ONCE 06/22/19 11:45 06/22/19 11:45 DC Dexmedetomidine HCl 400 mcg/ Sodium Chloride 100 ml @ 0 mls/hr CONT PRN 06/26/19 19:00 07/22/19 07:33 32.6 MLS/HR Dextrose (Dextrose 50%-Water Syringe) 12.5 gm PRN Q15MIN PRN 07/03/19 10:30 Enoxaparin Sodium (Lovenox 40mg Syringe) 40 mg Q24H 06/23/19 06:00 07/22/19 06:25 40 MG Etomidate (Amidate) 14 mg 1X ONCE 06/14/19 13:00 06/14/19 13:01 DC 06/14/19 12:59 14 MG Fentanyl Citrate (Fentanyl 2ml Vial) 100 mcg 1X ONCE 06/14/19 13:00 06/14/19 13:01 DC 06/14/19 12:58 100 MCG Fentanyl Citrate (Fentanyl 50 Mcg/ ml MANAGER ACQUISITION Syringe) 2,750 mcg STK-MED ONCE 07/13/19 22:45 07/17/19 15:58 DC Fentanyl Citrate (Fentanyl 600 Mcg/30 ml MANAGER ACQUISITION) 600 mcg STK-MED ONCE 06/15/19 05:30 06/18/19 12:07 DC Fluconazole/ Sodium Chloride 100 ml @ 100 mls/hr Q24H 07/17/19 08:00 07/20/19 12:59 DC 07/20/19 08:37 100 MLS/HR Furosemide (Lasix) 40 mg DAILY 06/27/19 12:00 07/22/19 08:57 40 MG Heparin Sodium (Porcine) (Hep Lock Adult) 500 unit STK-MED ONCE 07/18/19 09:27 07/18/19 09:27 DC Hydralazine HCl (Apresoline Inj) 10 mg PRN Q4HRS PRN 06/19/19 11:45 07/15/19 07:33 10 MG Hydromorphone HCl (Dilaudid) 1 mg PRN Q2HRS PRN 06/11/19 12:00 07/15/19 07:36 1 MG Info (CONTRAST GIVEN -- Rx MONITORING) 1 each PRN DAILY PRN 07/04/19 14:30 07/06/19 14:29 DC Info (PHARMACY MONITORING -- do not chart) 1 each PRN DAILY PRN 06/14/19 09:00 06/14/19 09:06 DC Info (Tpn Per Pharmacy) 1 each PRN DAILY PRN 06/19/19 11:15 07/21/19 12:09 1 EACH Insulin Glargine (Lantus Syringe) 30 unit BID 07/03/19 11:00 07/22/19 08:58 30 UNIT Insulin Human Lispro (HumaLOG) 0-9 UNITS Q6HRS 07/03/19 12:00 07/22/19 06:37 4 UNITS Insulin Human Regular (HumuLIN R VIAL) 10 unit 1X ONCE 06/22/19 19:45 06/22/19 19:57 DC 06/22/19 20:45 10 UNIT Insulin Human Regular 100 unit/ Sodium Chloride 101 ml @ 0 mls/hr CONT PRN 06/23/19 12:15 07/03/19 10:39 DC 07/02/19 18:55 2 MLS/HR Iohexol (Omnipaque 240 Mg/ml) 10 ml 1X ONCE 07/07/19 14:00 07/07/19 14:01 DC 07/07/19 12:50 10 ML Iohexol (Omnipaque 300 Mg/ml) 75 ml 1X ONCE 06/22/19 08:00 06/22/19 08:01 Cancel Iohexol (Omnipaque 350 Mg/ml) 100 ml 1X ONCE 06/11/19 04:45 06/11/19 04:46 DC 06/11/19 05:01 100 ML Labetalol HCl (Normodyne Iv Push) 20 mg PRN Q2HR PRN 06/19/19 11:45 06/26/19 14:44 20 MG Lidocaine HCl (Buffered Lidocaine 1%) 3 ml STK-MED ONCE 07/11/19 13:56 07/11/19 14:13 DC Lidocaine HCl (Lidocaine Pf 2% Vial) 5 ml STK-MED ONCE 06/14/19 12:00 06/17/19 10:37 DC Lidocaine/ Epinephrine (LIDOCAINE 1%-EPI 1:100,000 Multi-Dose) 5 ml 1X ONCE 07/18/19 09:45 07/18/19 09:46 DC 07/18/19 09:46 5 ML Linezolid/Dextrose 300 ml @ 300 mls/hr Q12HR 07/04/19 09:00 07/20/19 12:59 DC 07/20/19 09:36 300 MLS/HR Lorazepam (Ativan Inj) 2 mg PRN Q6HRS PRN 07/21/19 08:30 07/22/19 02:12 2 MG Magnesium Sulfate 50 ml @ 25 mls/hr ONCE ONCE 07/21/19 12:00 07/21/19 13:59 DC Meropenem 500 mg/ Sodium Chloride 50 ml @ 100 mls/hr Q6HRS 07/20/19 18:00 07/22/19 06:03 100 MLS/HR Metoprolol Tartrate (Lopressor Vial) 5 mg PRN Q6HRS PRN 07/15/19 12:30 Metronidazole 100 ml @ 100 mls/hr Q8HRS 07/06/19 22:00 07/20/19 12:59 DC 07/20/19 06:37 100 MLS/HR Micafungin Sodium 100 mg/Dextrose 100 ml @ 100 mls/hr Q24H 06/20/19 09:00 07/07/19 09:51 DC 07/07/19 08:19 100 MLS/HR Midazolam HCl (Versed) 5 mg 1X ONCE 06/14/19 13:00 06/14/19 13:01 DC 06/14/19 12:59 5 MG Midazolam HCl 100 mg/Sodium Chloride 100 ml @ 9 mls/hr CONT PRN 07/13/19 15:00 07/18/19 00:29 9 MLS/HR Midazolam HCl 50 mg/Sodium Chloride 50 ml @ 0 mls/hr CONT PRN 06/14/19 12:45 07/13/19 14:59 DC 07/13/19 10:19 9 MLS/HR Morphine Sulfate (Morphine Sulfate) 1 mg PRN Q1HR PRN 06/22/19 15:45 07/15/19 08:48 1 MG Multi-Ingred Cream/Lotion/Oil/ Oint (Artificial Tears Eye Ointment) 1 devorah PRN Q1HR PRN 07/08/19 10:30 Naloxone HCl (Narcan) 0.4 mg PRN Q2MIN PRN 06/22/19 15:45 07/15/19 07:58 0.4 MG Nicardipine HCl 50 mg/Sodium Chloride 250 ml @ 25 mls/hr CONT PRN 06/18/19 11:45 07/13/19 15:06 DC Norepinephrine Bitartrate 8 mg/ Dextrose 258 ml @ 20.027 mls/ hr CONT PRN 06/14/19 10:30 06/14/19 10:31 20.027 MLS/HR Nystatin (Nystop) 1 devorah PRN QID PRN 06/11/19 23:15 06/11/19 23:19 1 DEVORAH Ondansetron HCl (Zofran) 4 mg PRN Q6HRS PRN 06/22/19 15:45 Pantoprazole Sodium (PROTONIX VIAL for IV PUSH) 40 mg [id number] 06/13/19 21:00 07/22/19 06:00 40 MG Piperacillin Sod/ Tazobactam Sod (Zosyn Per Pharmacy) 1 each PRN DAILY PRN 06/12/19 13:15 06/12/19 19:16 DC Piperacillin Sod/ Tazobactam Sod 2.25 gm/Sodium Chloride 50 ml @ 100 mls/hr Q6HRS 06/12/19 13:30 06/12/19 19:15 DC 06/12/19 13:48 100 MLS/HR Potassium Chloride/Water 100 ml @ 50 mls/hr 1X ONCE 06/29/19 09:00 06/29/19 10:59 DC 06/29/19 08:57 50 MLS/HR Potassium Phosphate 10 mmol/ Magnesium Sulfate 5 meq/Calcium Gluconate 15 meq/ Multivitamins 10 ml/Chromium/ Copper/Manganese/ Seleni/Zn 0.5 ml/ Potassium Acetate 10 meq/Total Parenteral Nutrition/Amino Acids/Dextrose 1,920 ml @ 80 mls/hr TPN CONT 07/02/19 22:00 07/03/19 21:59 DC 07/02/19 21:36 80 MLS/HR Potassium Phosphate 10 mmol/ Magnesium Sulfate 5 meq/Calcium Gluconate 15 meq/ Multivitamins 10 ml/Chromium/ Copper/Manganese/ Seleni/Zn 0.5 ml/ Potassium Acetate 20 meq/Total Parenteral Nutrition/Amino Acids/Dextrose 1,920 ml @ 80 mls/hr TPN CONT 06/30/19 22:00 07/01/19 21:59 DC 06/30/19 21:38 80 MLS/HR Potassium Phosphate 10 mmol/ Magnesium Sulfate 5 meq/Calcium Gluconate 15 meq/ Multivitamins 10 ml/Chromium/ Copper/Manganese/ Seleni/Zn 0.5 ml/ Potassium Acetate 20 meq/Total Parenteral Nutrition/Amino Acids/Dextrose/ Fat Emulsion Intravenous 1,920 ml @ 80 mls/hr TPN CONT 06/29/19 22:00 06/30/19 21:59 DC 06/29/19 21:32 80 MLS/HR Potassium Phosphate 10 mmol/ Magnesium Sulfate 5 meq/Calcium Gluconate 15 meq/ Multivitamins 10 ml/Chromium/ Copper/Manganese/ Seleni/Zn 0.5 ml/ Total Parenteral Nutrition/Amino Acids/Dextrose/ Fat Emulsion Intravenous 1,920 ml @ 80 mls/hr TPN CONT 06/27/19 22:00 06/28/19 21:59 DC 06/27/19 21:38 80 MLS/HR Potassium Phosphate 13.6 mmol/Calcium Gluconate 20 meq/ Multivitamins 10 ml/Chromium/ Copper/Manganese/ Seleni/Zn 0.5 ml/ Insulin Human Regular 10 unit/ Total Parenteral Nutrition/Amino Acids/Dextrose/ Fat Emulsion Intravenous 1,920 ml @ 80 mls/hr TPN CONT 06/21/19 22:00 06/22/19 21:59 DC 06/21/19 21:31 80 MLS/HR Potassium Phosphate 13.6 mmol/Magnesium Sulfate 10 meq/ Calcium Gluconate 20 meq/ Multivitamins 10 ml/Chromium/ Copper/Manganese/ Seleni/Zn 0.5 ml/ Total Parenteral Nutrition/Amino Acids/Dextrose/ Fat Emulsion Intravenous 1,920 ml @ 80 mls/hr TPN CONT 06/19/19 22:00 06/20/19 21:59 DC 06/19/19 21:31 80 MLS/HR Potassium Phosphate 13.6 mmol/Magnesium Sulfate 5 meq/ Calcium Gluconate 20 meq/ Multivitamins 10 ml/Chromium/ Copper/Manganese/ Seleni/Zn 0.5 ml/ Total Parenteral Nutrition/Amino Acids/Dextrose/ Fat Emulsion Intravenous 1,920 ml @ 80 mls/hr TPN CONT 06/22/19 22:00 06/23/19 21:59 DC 06/22/19 22:14 80 MLS/HR Potassium Phosphate 23 mmol/ Magnesium Sulfate 15 meq/Calcium Gluconate 10 meq/ Multivitamins 10 ml/Chromium/ Copper/Manganese/ Seleni/Zn 0.5 ml/ Total Parenteral Nutrition/Amino Acids/Dextrose 1,920 ml @ 80 mls/hr TPN CONT 07/20/19 22:00 07/21/19 21:59 DC 07/20/19 21:26 80 MLS/HR Potassium Phosphate 23 mmol/ Magnesium Sulfate 15 meq/Calcium Gluconate 10 meq/ Multivitamins 10 ml/Chromium/ Copper/Manganese/ Seleni/Zn 0.5 ml/ Total Parenteral Nutrition/Amino Acids/Dextrose/ Fat Emulsion Intravenous 1,920 ml @ 80 mls/hr TPN CONT 07/18/19 22:00 07/19/19 21:59 DC 07/18/19 21:48 80 MLS/HR Potassium Phosphate 28 mmol/ Magnesium Sulfate 18 meq/Calcium Gluconate 10 meq/ Multivitamins 10 ml/Chromium/ Copper/Manganese/ Seleni/Zn 0.5 ml/ Total Parenteral Nutrition/Amino Acids/Dextrose 1,920 ml @ 80 mls/hr TPN CONT 07/21/19 22:00 07/22/19 21:59 07/21/19 22:58 80 MLS/HR Potassium Acetate 10 meq/Potassium Phosphate 10 mmol/ Magnesium Sulfate 5 meq/Calcium Gluconate 15 meq/ Multivitamins 10 ml/Chromium/ Copper/Manganese/ Seleni/Zn 0.5 ml/ Total Parenteral Nutrition/Amino Acids/Dextrose 1,920 ml @ 80 mls/hr TPN CONT 07/06/19 22:00 07/07/19 21:59 DC 07/06/19 22:51 80 MLS/HR Potassium Acetate 10 meq/Potassium Phosphate 10 mmol/ Magnesium Sulfate 10 meq/Calcium Gluconate 10 meq/ Multivitamins 10 ml/Chromium/ Copper/Manganese/ Seleni/Zn 0.5 ml/ Total Parenteral Nutrition/Amino Acids/Dextrose 1,920 ml @ 80 mls/hr TPN CONT 07/07/19 22:00 07/08/19 21:59 DC 07/07/19 21:50 80 MLS/HR Potassium Acetate 10 meq/Potassium Phosphate 10 mmol/ Magnesium Sulfate 10 meq/Calcium Gluconate 10 meq/ Multivitamins 10 ml/Chromium/ Copper/Manganese/ Seleni/Zn 0.5 ml/ Total Parenteral Nutrition/Amino Acids/Dextrose/ Fat Emulsion Intravenous 1,635 ml @ 68.125 mls/ hr TPN CONT 07/08/19 22:00 07/09/19 21:59 DC 07/08/19 21:47 68.125 MLS/HR Potassium Acetate 15 meq/Potassium Phosphate 15 mmol/ Magnesium Sulfate 10 meq/Calcium Gluconate 10 meq/ Multivitamins 10 ml/Chromium/ Copper/Manganese/ Seleni/Zn 0.5 ml/ Total Parenteral Nutrition/Amino Acids/Dextrose/ Fat Emulsion Intravenous 1,920 ml @ 80 mls/hr TPN CONT 07/14/19 22:00 07/15/19 21:59 DC 07/14/19 22:16 80 MLS/HR Potassium Acetate 15 meq/Potassium Phosphate 18 mmol/ Magnesium Sulfate 15 meq/Calcium Gluconate 10 meq/ Multivitamins 10 ml/Chromium/ Copper/Manganese/ Seleni/Zn 0.5 ml/ Total Parenteral Nutrition/Amino Acids/Dextrose/ Fat Emulsion Intravenous 1,920 ml @ 80 mls/hr TPN CONT 07/16/19 22:00 07/17/19 21:59 DC 07/16/19 22:08 80 MLS/HR Prochlorperazine Edisylate (Compazine) 10 mg PRN Q8HRS PRN 06/11/19 12:00 06/12/19 14:59 10 MG Propofol 100 ml @ 6.588 mls/ hr CONT PRN 06/27/19 12:00 07/22/19 05:56 31.5 MLS/HR Ringer's Solution 1,000 ml @ 100 mls/hr Q10H 06/22/19 15:39 06/24/19 17:46 DC 06/23/19 22:06 100 MLS/HR Rocuronium [place] (Zemuron) 50 mg STK-MED ONCE 06/22/19 14:52 06/22/19 14:52 DC Sevoflurane (Ultane) 90 ml STK-MED ONCE 06/22/19 13:53 06/22/19 13:53 DC Sodium Bicarbonate 50 meq/Sodium Chloride 1,050 ml @ 150 mls/hr Q7H 06/12/19 11:00 06/13/19 14:48 DC 06/13/19 04:16 150 MLS/HR Sodium Bicarbonate (Sodium Bicarb Adult 8.4% Syr) 50 meq 1X ONCE 06/26/19 19:30 06/26/19 19:23 DC Sodium Chloride 500 ml @ 500 mls/hr 1X PRN PRN 06/26/19 19:00 Sodium Chloride (Normal Saline Flush) 3 ml QSHIFT PRN 06/22/19 15:45 Sodium Phosphate 10 mmol/Magnesium Sulfate 5 meq/ Calcium Gluconate 15 meq/ Multivitamins 10 ml/Chromium/ Copper/Manganese/ Seleni/Zn 0.5 ml/ Insulin Human Regular 10 unit/ Total Parenteral Nutrition/Amino Acids/Dextrose/ Fat Emulsion Intravenous 1,920 ml @ 80 mls/hr TPN CONT 06/23/19 22:00 06/24/19 21:59 DC 06/23/19 22:20 80 MLS/HR Sodium Phosphate 10 mmol/Magnesium Sulfate 5 meq/ Calcium Gluconate 15 meq/ Multivitamins 10 ml/Chromium/ Copper/Manganese/ Seleni/Zn 0.5 ml/ Total Parenteral Nutrition/Amino Acids/Dextrose/ Fat Emulsion Intravenous 1,920 ml @ 80 mls/hr TPN CONT 06/27/19 22:00 06/27/19 12:55 DC Sodium Phosphate 15 mmol/Sodium Chloride 105 ml @ 105 mls/hr 1X ONCE 07/16/19 14:00 07/16/19 14:59 DC 07/16/19 12:33 105 MLS/HR Sodium Phosphate 20 mmol/Sodium Chloride 256.6667 ml @ 64.167 m... 1X ONCE 07/17/19 14:00 07/17/19 17:59 DC 07/17/19 14:50 64.167 MLS/HR Succinylcholine Chloride (Anectine) 200 mg 1X ONCE 06/14/19 13:00 06/14/19 13:01 DC 06/14/19 12:59 200 MG Vecuronium [place] 50 mg/ Miscellaneous 50 ml @ 4.925 mls/ hr CONT PRN 06/22/19 15:00 06/25/19 05:19 4.925 MLS/HR Labs: Lab Laboratory Tests Test 07/21/19 12:05 07/21/19 17:25 07/22/19 00:46 07/22/19 06:32 Glucose (Fingerstick) 134 mg/dL (70-99) 104 mg/dL (70-99) 172 mg/dL (70-99) 172 mg/dL (70-99) Test 07/22/19 08:00 Arterial Blood pH 7.42 (7.35-7.45) Arterial Blood pCO2 at Patient Temp 48 mmHg (35-46) Arterial Blood pO2 at Patient Temp 86 mmHg (75-108) Arterial Blood HCO3 30 mmol/L (21-28) Arterial Blood Base Excess 5 mmol/L (-3-3) FiO2 35 Objective: Assessment: Fever cult neg Leukocytosis resolved Gallbladder stone pancreatitis s/p expl lap, pancreatic necrosectomy, cholecystostomy tube placement, G-tube placement with jejunal extension, 06/21 Loculated fluid collection along the anterior aspect of the pancreas measures 3.0 x 2.6 cm and fluid collection along the inferior aspect of the stomach measures 9.6 x 4.0 cm, on CT 06/[address] 07/03 with loculated fluid collection, drainage tube readjusted Sepsis from GI - cult neg Acute Resp failure - s/p trach 06/21 Lactic acidosis. Acute kidney injury previously requiring dialysis - HDC removed Metabolic acidosis. Hypocalcemia Plan: Plan of Care fever fluctuates off and on ,can be from pancreatic necrosis all cult neg so far pt is not improving clinically cont merrem and micafungin ( 07/19) was on cefepime,flagyl, zyvox and fluconazole cont daptomycin 07/20 HDC has been removed only has central powered line UA and UC BC neg from 07/16 Maintain aspiration precaution. D/w DR Dawson 07/20 Pt been transferred to [facility] d/w at bedside D/W THUY MARTIN MD Jul 22, 2019 09:12
[2019-07-22] MEDS ORDERED: METOPROLOL IVP (09:15)
[2019-07-22] MEDS ORDERED: PROP10VI IV (09:15)
[2019-07-22] MEDS ORDERED: ACET650S11 PR (09:15)
[2019-07-22] MEDS ORDERED: ALBU2.5V8 NEB (09:15)
[2019-07-22] MEDS ORDERED: ENOX40DI3 SQ (09:15)
[2019-07-22] MEDS ORDERED: MERO500V24 IV (09:15)
--- NOTE | 2019-07-22 09:41 | PDOC ---
SURGICAL PROGRESS NOTE Subjective no changes plans for select today Vital Signs Vital Signs Date Time Temp Pulse Resp B/P (MAP) Pulse Ox O2 Delivery O2 Flow Rate FiO2 07/22/19 09:00 81 16 127/83 (98) 100 Ventilator 07/22/19 08:00 97.9 97.9 I&O Intake and Output 07/22/19 07:00 Intake Total 3888.5 ml Output Total 3135 ml Balance 753.5 ml Intake Oral 0 ml IV Total 3410.5 ml Tube Feeding 378 ml Other 100 ml Output Urine Total 2805 ml Gastric Drainage Total 0 ml Drainage Total 330 ml PATIENT HAS A LEPE: Yes General: No acute distress HEENT: Other (trach) Abdomen: Soft, Other (drains in place) Labs Laboratory Tests Test 07/20/19 11:38 07/20/19 14:35 07/20/19 17:38 07/20/19 21:17 Glucose (Fingerstick) 194 mg/dL (70-99) 197 mg/dL (70-99) 201 mg/dL (70-99) Urine Collection Type U cath Urine Color Dk yellow Urine Clarity Clear Urine pH 6.0 (<5.0-8.0) Urine Specific [place] 1.020 (1.000-1.030) Urine Protein 100 mg/dL (NEG-TRACE) Urine Glucose (UA) Negative mg/dL (NEG) Urine Ketones (Stick) Negative mg/dL (NEG) Urine Blood Moderate (NEG) Urine Nitrite Negative (NEG) Urine Bilirubin Small (NEG) Urine Urobilinogen Dipstick 0.2 mg/dL (0.2 mg/dL) Urine Leukocyte Esterase Trace (NEG) Urine RBC 20-40 /HPF (0-2) Urine WBC Rare /HPF (0-4) Urine Bacteria 0 /HPF (0-FEW) Urine Mucus Slight /LPF Test 07/20/19 23:50 07/21/19 05:20 07/21/19 05:45 07/21/19 07:20 Glucose (Fingerstick) 231 mg/dL (70-99) 191 mg/dL (70-99) White Blood Count 10.9 x10^3/uL (4.0-11.0) Red Blood Count 2.66 x10^6/uL (4.30-5.70) Hemoglobin 7.6 g/dL (13.0-17.5) Hematocrit 23.7 % (39.0-53.0) Mean Corpuscular Volume 89 fL (79-100) Mean Corpuscular Hemoglobin 29 pg (25-35) Mean Corpuscular Hemoglobin Concent 32 g/dL (31-37) Red Cell Distribution Width 15.9 % (11.5-14.5) Platelet Count 364 x10^3/uL (140-400) Sodium Level 138 mmol/L (136-145) Potassium Level 4.0 mmol/L (3.5-5.1) Chloride Level 102 mmol/L (98-107) Carbon Dioxide Level 28 mmol/L (21-32) Anion Gap 8 (6-14) Blood Urea Nitrogen 20 mg/dL (8-26) Creatinine 0.8 mg/dL (0.7-1.3) Estimated GFR (Cockcroft-Gault) 124.3 Glucose Level 182 mg/dL (70-99) Lactic Acid Level 2.2 mmol/L (0.4-2.0) Calcium Level 7.6 mg/dL (8.5-10.1) Phosphorus Level 2.4 mg/dL (2.6-4.7) Magnesium Level 1.6 mg/dL (1.8-2.4) O2 Saturation 95 % (92-99) Arterial Blood pH 7.49 (7.35-7.45) Arterial Blood pCO2 at Patient Temp 40 mmHg (35-46) Arterial Blood pO2 at Patient Temp 78 mmHg (75-108) Arterial Blood HCO3 29 mmol/L (21-28) Arterial Blood Base Excess 6 mmol/L (-3-3) FiO2 35 Test 07/21/19 12:05 07/21/19 17:25 07/22/19 00:46 07/22/19 06:32 Glucose (Fingerstick) 134 mg/dL (70-99) 104 mg/dL (70-99) 172 mg/dL (70-99) 172 mg/dL (70-99) Test 07/22/19 08:00 07/22/19 08:50 Arterial Blood pH 7.42 (7.35-7.45) Arterial Blood pCO2 at Patient Temp 48 mmHg (35-46) Arterial Blood pO2 at Patient Temp 86 mmHg (75-108) Arterial Blood HCO3 30 mmol/L (21-28) Arterial Blood Base Excess 5 mmol/L (-3-3) FiO2 35 White Blood Count 10.0 x10^3/uL (4.0-11.0) Red Blood Count 2.61 x10^6/uL (4.30-5.70) Hemoglobin 7.4 g/dL (13.0-17.5) Hematocrit 23.2 % (39.0-53.0) Mean Corpuscular Volume 89 fL (79-100) Mean Corpuscular Hemoglobin 28 pg (25-35) Mean Corpuscular Hemoglobin Concent 32 g/dL (31-37) Red Cell Distribution Width 15.9 % (11.5-14.5) Platelet Count 371 x10^3/uL (140-400) Laboratory Tests Test 07/21/19 12:05 07/21/19 17:25 07/22/19 00:46 07/22/19 06:32 Glucose (Fingerstick) 134 mg/dL (70-99) 104 mg/dL (70-99) 172 mg/dL (70-99) 172 mg/dL (70-99) Test 07/22/19 08:00 07/22/19 08:50 Arterial Blood pH 7.42 (7.35-7.45) Arterial Blood pCO2 at Patient Temp 48 mmHg (35-46) Arterial Blood pO2 at Patient Temp 86 mmHg (75-108) Arterial Blood HCO3 30 mmol/L (21-28) Arterial Blood Base Excess 5 mmol/L (-3-3) FiO2 35 White Blood Count 10.0 x10^3/uL (4.0-11.0) Red Blood Count 2.61 x10^6/uL (4.30-5.70) Hemoglobin 7.4 g/dL (13.0-17.5) Hematocrit 23.2 % (39.0-53.0) Mean Corpuscular Volume 89 fL (79-100) Mean Corpuscular Hemoglobin 28 pg (25-35) Mean Corpuscular Hemoglobin Concent 32 g/dL (31-37) Red Cell Distribution Width 15.9 % (11.5-14.5) Platelet Count 371 x10^3/uL (140-400) Problem List Problems Medical Problems: (1) Acute pancreatitis Status: Acute (2) Nausea & vomiting Status: Acute Assessment/Plan to ltac MAXIMILIANO GREENBERG CHEMICAL DEPENDENCY THERAPIST Jul 22, 2019 09:41
--- NOTE | 2019-07-22 09:51 | PDOC ---
Objective: Objective: D/w nurse - going to [facility] today, able to ease off sedation a bit. On TPN and IV PPI, also tube feeds. Vital Signs: Vital Signs Date Time Temp Pulse Resp B/P (MAP) Pulse Ox O2 Delivery O2 Flow Rate FiO2 07/22/19 09:00 81 16 127/83 (98) 100 Ventilator 07/22/19 08:00 97.9 97.9 Labs: Laboratory Tests Test 07/21/19 12:05 07/21/19 17:25 07/22/19 00:46 07/22/19 06:32 Glucose (Fingerstick) 134 mg/dL 104 mg/dL 172 mg/dL 172 mg/dL Test 07/22/19 08:00 07/22/19 08:50 O2 Saturation Pending Arterial Blood pH 7.42 Arterial Blood pCO2 at Patient Temp 48 mmHg Arterial Blood pO2 at Patient Temp 86 mmHg Arterial Blood HCO3 30 mmol/L Arterial Blood Base Excess 5 mmol/L FiO2 35 White Blood Count 10.0 x10^3/uL Red Blood Count 2.61 x10^6/uL Hemoglobin 7.4 g/dL Hematocrit 23.2 % Mean Corpuscular Volume 89 fL Mean Corpuscular Hemoglobin 28 pg Mean Corpuscular Hemoglobin Concent 32 g/dL Red Cell Distribution Width 15.9 % Platelet Count 371 x10^3/uL BLOOD CULTURE Preliminary NO GROWTH AFTER 1 DAY PE: GEN: NAD LUNGS: trach/vent HEART: RRR ABD: stable distention NEURO/PSYCH: sedated A/P: S/p pancreatic necrosectomy, MOSF -- Dc plans as above. Hemodynamically unstable?: No Is patient in severe pain?: No Is NPO status required?: Yes PAXTON ALEXANDER Jul 22, 2019 09:51
[2019-07-22 09:52] LABS: CREATININE 0.8 mg/dL (0.7-1.3); GFR 124.3; MAGNESIUM 1.9 mg/dL (1.8-2.4); POTASSIUM 3.8 mmol/L (3.5-5.1)
--- NOTE | 2019-07-22 10:00 | NUR ---
SS following up with discharge planning. Bed available at [facility], ; fax [phone]. Discharge orders received. SS phoned and faxed discharge orders to [facility]. Pt will discharge today and go to [facility] at 1200 via [facility] transport. Pt, pt's RN, and pt's spouse notified. Packet and [facility] form on the chart.
--- NOTE | 2019-07-22 13:43 | NUR ---
Patient transferred to [facility] at 1300 via EMS. All belongings, including cell phone/music speaker, with patient at time of transfer. Transfer packet/paperwork given to [facility] rectifying operator. Report given to Pita ONEILL via phone. RN called Wound Care and was told to take off wound vac and apply ABD's. All abdominal dressings changed and cleaned, PICC line dressing changed prior to transfer. Patient's at bedside, phone number given to [facility], she spoke with patient/family coordinator. Patient's VS stable at time of transfer. See assessments, VS.
--- NOTE | 2019-07-22 17:31 | PDOC3 ---
Discharge Summary Visit Information Date of Admission: Jun 11, 2019 Date of Discharge: Jul 22, 2019 Final Diagnosis Problems Medical Problems: (1) Acute pancreatitis Status: Acute (2) Nausea & vomiting Status: Acute Brief Hospital Course Allergies Allergies Coded Allergies Type Severity Reaction Last Updated Verified No Known Drug Allergies 01/28/16 No Vital Signs Vital Signs Date Time Temp Pulse Resp B/P (MAP) Pulse Ox O2 Delivery O2 Flow Rate FiO2 07/22/19 12:00 98.2 87 16 117/69 (85) 98 Ventilator 98.2 General: Sedated trached on a vent Heart: Regular rate, Normal S1, Normal S2, No murmurs, Gallops Lungs: Clear Abdomen: Soft, Other (mulitples drains ) Extremities: No clubbing, No cyanosis, No edema, Normal pulses, No tend erness/swelling Skin: No significant lesion Lab Results Laboratory Tests Test 07/20/19 17:38 07/20/19 21:17 07/20/19 23:50 07/21/19 05:20 Glucose (Fingerstick) 197 mg/dL (70-99) 201 mg/dL (70-99) 231 mg/dL (70-99) 191 mg/dL (70-99) Test 07/21/19 05:45 07/21/19 07:20 07/21/19 12:05 07/21/19 17:25 White Blood Count 10.9 x10^3/uL (4.0-11.0) Red Blood Count 2.66 x10^6/uL (4.30-5.70) Hemoglobin 7.6 g/dL (13.0-17.5) Hematocrit 23.7 % (39.0-53.0) Mean Corpuscular Volume 89 fL (79-100) Mean Corpuscular Hemoglobin 29 pg (25-35) Mean Corpuscular Hemoglobin Concent 32 g/dL (31-37) Red Cell Distribution Width 15.9 % (11.5-14.5) Platelet Count 364 x10^3/uL (140-400) Sodium Level 138 mmol/L (136-145) Potassium Level 4.0 mmol/L (3.5-5.1) Chloride Level 102 mmol/L (98-107) Carbon Dioxide Level 28 mmol/L (21-32) Anion Gap 8 (6-14) Blood Urea Nitrogen 20 mg/dL (8-26) Creatinine 0.8 mg/dL (0.7-1.3) Estimated GFR (Cockcroft-Gault) 124.3 Glucose Level 182 mg/dL (70-99) Lactic Acid Level 2.2 mmol/L (0.4-2.0) Calcium Level 7.6 mg/dL (8.5-10.1) Phosphorus Level 2.4 mg/dL (2.6-4.7) Magnesium Level 1.6 mg/dL (1.8-2.4) O2 Saturation 95 % (92-99) Arterial Blood pH 7.49 (7.35-7.45) Arterial Blood pCO2 at Patient Temp 40 mmHg (35-46) Arterial Blood pO2 at Patient Temp 78 mmHg (75-108) Arterial Blood HCO3 29 mmol/L (21-28) Arterial Blood Base Excess 6 mmol/L (-3-3) FiO2 35 Glucose (Fingerstick) 134 mg/dL (70-99) 104 mg/dL (70-99) Test 07/22/19 00:46 07/22/19 06:32 07/22/19 08:00 07/22/19 08:50 Glucose (Fingerstick) 172 mg/dL (70-99) 172 mg/dL (70-99) O2 Saturation % (92-99) Arterial Blood pH 7.42 (7.35-7.45) Arterial Blood pCO2 at Patient Temp 48 mmHg (35-46) Arterial Blood pO2 at Patient Temp 86 mmHg (75-108) Arterial Blood HCO3 30 mmol/L (21-28) Arterial Blood Base Excess 5 mmol/L (-3-3) FiO2 35 White Blood Count 10.0 x10^3/uL (4.0-11.0) Red Blood Count 2.61 x10^6/uL (4.30-5.70) Hemoglobin 7.4 g/dL (13.0-17.5) Hematocrit 23.2 % (39.0-53.0) Mean Corpuscular Volume 89 fL (79-100) Mean Corpuscular Hemoglobin 28 pg (25-35) Mean Corpuscular Hemoglobin Concent 32 g/dL (31-37) Red Cell Distribution Width 15.9 % (11.5-14.5) Platelet Count 371 x10^3/uL (140-400) Sodium Level 137 mmol/L (136-145) Potassium Level 3.8 mmol/L (3.5-5.1) Chloride Level 102 mmol/L (98-107) Carbon Dioxide Level 31 mmol/L (21-32) Anion Gap 4 (6-14) Blood Urea Nitrogen 19 mg/dL (8-26) Creatinine 0.8 mg/dL (0.7-1.3) Estimated GFR (Cockcroft-Gault) 124.3 Glucose Level 173 mg/dL (70-99) Calcium Level 8.0 mg/dL (8.5-10.1) Magnesium Level 1.9 mg/dL (1.8-2.4) Laboratory Tests Test 07/21/19 17:25 07/22/19 00:46 07/22/19 06:32 07/22/19 08:00 Glucose (Fingerstick) 104 mg/dL (70-99) 172 mg/dL (70-99) 172 mg/dL (70-99) O2 Saturation % (92-99) Arterial Blood pH 7.42 (7.35-7.45) Arterial Blood pCO2 at Patient Temp 48 mmHg (35-46) Arterial Blood pO2 at Patient Temp 86 mmHg (75-108) Arterial Blood HCO3 30 mmol/L (21-28) Arterial Blood Base Excess 5 mmol/L (-3-3) FiO2 35 Test 07/22/19 08:50 White Blood Count 10.0 x10^3/uL (4.0-11.0) Red Blood Count 2.61 x10^6/uL (4.30-5.70) Hemoglobin 7.4 g/dL (13.0-17.5) Hematocrit 23.2 % (39.0-53.0) Mean Corpuscular Volume 89 fL (79-100) Mean Corpuscular Hemoglobin 28 pg (25-35) Mean Corpuscular Hemoglobin Concent 32 g/dL (31-37) Red Cell Distribution Width 15.9 % (11.5-14.5) Platelet Count 371 x10^3/uL (140-400) Sodium Level 137 mmol/L (136-145) Potassium Level 3.8 mmol/L (3.5-5.1) Chloride Level 102 mmol/L (98-107) Carbon Dioxide Level 31 mmol/L (21-32) Anion Gap 4 (6-14) Blood Urea Nitrogen 19 mg/dL (8-26) Creatinine 0.8 mg/dL (0.7-1.3) Estimated GFR (Cockcroft-Gault) 124.3 Glucose Level 173 mg/dL (70-99) Calcium Level 8.0 mg/dL (8.5-10.1) Magnesium Level 1.9 mg/dL (1.8-2.4) Brief Hospital Course [facility] [address] [place] [address] HISTORY AND PHYSICAL PATIENT: CHRISTOPHER NEWSOME ACCOUNT: [id number] : 1970 LOC: [address] [place] [address] AGE: 49 SEX: M STATUS: ADM IN LOCATION: [address] [place] [address] ADMIT DATE: 06/11/2019 CHIEF COMPLAINT: Abdominal pain. HISTORY OF PRESENT ILLNESS: The patient is a pleasant 49-year-old male who presented to the ER with abdominal pains in the epigastric region, rated 7/10. He has associated nausea. He took some home meds, but that did not seem to help. While in the ER, he was noted to have pancreatitis. We are going to admit the patient and consult GI. Hospital course: A 49-year-old male with history of reflux problems, presented to the ER on 06/11/2019 with complaints of severe epigastric pain radiating to the back. It was sharp in nature with nausea and vomiting. He denies being on any antibiotics prior to admission. White count was elevated at 18,000 with lactic acidosis at 3.5. LFTs were elevated. Lipase was 82,227, creatinine of 1.3, BUN of 20. CT abdomen and pelvis showed findings consistent with acute pancreatitis, no apparent acute complications. Small amount of fluid along the pancreas and retroperitoneal reflection. No apparent pseudocyst, cholelithiasis. Normal caliber aorta without dissection. Minimal dependent atelectasis. Surgery was consulted who planned for cholecystectomy prior to discharge. The patient was encouraged for hydration, pain control, encouraged for ETOH moderation. The patient also had FABIOLA with creatinine of 3.5 and potassium of 6.6 with metabolic acidosis. The patient was started on Zosyn today by Dr. Polk. ID consult has been requested for antibiotic management. The patient required IV fluid bolus earlier this morning. He continues to have stomach ache, also has some nausea. Two daughters at bedside, very supportive. Heartburn is under control with Pepcid. On 06/12/2019 Dr. Quiroz was consulted for acute renal failure which was felt to be dehydration from poor oral intake due to the events leading to his hospital admission, he had been seen by surgery the day prior and the recommendations were to continue with pain control and hydration implants were to have a cholecystectomy prior to dismissal, patient's renal dysfunction continue to progress and unfortunately he required hemodialysis. On 06/14/19 he was encephalopathic which most likely was a combination of the electrolyte disturbance and acute pancreatitis on top of his renal dysfunction. He was placed on mechanical ventilation on 06/14/19 GI eap consultant surgical consult and pulmonary eap consultant infectious disease consulted continued to follow along the case several interventional radiology procedures were done during his hospital stay including a central venous catheter placement on 06/13 details please refer to the medical record. He also had another ultrasound-guided placement of the right internal jugular central venous catheter on June 20, 2023 peripheral access and nutrition he also had a gastrostomy tube placed in consequently a conversion to a gastrojejunostomy tube this was done on July 08, 2019. He had a thoracentesis on July 15, 2019 The patient also was seen by cardiology due to sinus tachycardia that was developed on early on in his hospital stay around June 17. Recommendations were to provide supportive care and he was placed on a Cardene drip in order to address his blood pressure and tachycardia. He was taken to the OR on June 22, 2019 with the following report: Patient: CHRISTOPHER NEWSOME Acct:[id number] Unit: [id number] : 1970 Loc: [place]/Bed: 1111 Age/Sex: 49 / M ADM Status: ADM IN ADM Date: 06/11/19 OPERATIVE NOTE Date: Date: Jun 22, 2019 Pre-Op Diagnosis: Severe necrotizing gallstone pancreatitis, increased abdominal pressure, respiratory failure Post-Op Diagnosis: same Procedure Performed: Exploratory laparotomy, pancreatic necrosectomy, cholecystostomy tube placement, Gastrostomy placement with jejunal extension, tracheostomy placement (specifically 8 shiley cuffed) Surgeon: Aaron Dawson Anesthesia Type: GETA Blood Loss: 200 Specimans Obtained: pancreatic necrosis, saponification, gallstones Findings: diffuse peritonitis, 1.5 liters of ascites, diffuse saponification, viable viscera, mulitiple gallstones, normal liver Complications: none Operative Note: After obtaining informed consent, patient was taken to OR, induced under GETA and prepped in the usual fashion. Midline incision was made with cautery. Minimal subcutaneous fat. Large amount of ascites evacuated. Ascites sent for cultures. Stomach distended but normal. Gastrotomy made with cautery. 20 F Gastrostomy tube introduced and pediatric extensive placed through jejunal aspect. Balloon inflated and secured to anterior abdominal wall with 3 0 vicryl. 2 0 nylon used to secure gastrostomy tube externally. Careful blunt dissection was used to mobilize small bowel, which was viable and not distended. Omentum with extensive saponification. Biopsy taken. Liver completely normal. Gallbladder distended, but normal color. Secondary to extensive inflammation, cholecystectomy was not technically feasible and high risk. Given this, cholecystostomy made and gallstones evacuated out. Gastrostomy tube placed to serve as cholecystostomy tube and secured with balloon and 2 0 nylon externally. 19 JOSE drain placed in this area and secured with 2 0 nylon. Peripancreatic areas approached via through avascular areas of transverse mesocolon. Some pancreatic material evacuated out bluntly. Left sided cosme drain placed into this area and secured externally with 2 0 nylon. Surgicel was placed in the area. Also approached this area via gastrocolic ligament into lesser sac. Right cosme drain placed in this area and secured with 2 0 nylon. Surgicel placed. Copious irrigation with no other pathology or bleeding noted. Given morbidity of open abdomen, evacuation of intraabdominal contents and patient's stable status, attempt at closing the abdomen was made. Fascia repaired with 0 looped PDS x 2. Multiple transfascial 1 PDS were used to act as retention sutures. This appeared to have been successful as the repair was w ithout significant tension, vital signs remained stable and peak airway pressures of 35. Skin repaired with 2 0 vicryl. Attention was then turned to tracheostomy. Patient reprepped and draped over anterior neck. Vertical incision made with cautery. Trachea identified. 2 0 prolene placed through 1 st tracheal ring and secured externally with steristrips. 2nd tracheal ring was entered with 15 blade scaple. 8 Shiley tracheostomy introduced and end tidal CO2 detected and patient was successfully oxygenated and ventilated. Tracheostomy secured with 3 0 nylon and collar. Patient tolerated procedure well and was sent to ICU in stable condition. All counts correct. Wound class is 4. Will remain in deep coma and paralysed given concern for intraabdominal pressures. He continue to receive supportive measures in the ICU and subsequently had a tracheostomy placed. The patient continued on antibiotics by her infectious disease eap consultant the gastrostomy tube was repositioned by IR on 320 and also status post jejunostomy placement on 323 as mentioned before. For details please refer to the medical record cultures were negative from the GI pathology was reviewed as well the acute kidney injury resolved the catheter was removed his metabolic acidosis improved he did have evidence of an occlusive thrombosis in the cephalic vein and the yeast in the sputum from 320 was probably coloniza tion as per our eap consultant he did receive PRBCs as part of his treatment plan due to anemia that he presented postop. The patient unfortunately was unable to be weaned off due to agitation and he required a lot of fentanyl Precedex Versed and currently is on propofol. He will be continue with his care at an long-term acute care facility. Case was discussed with all consultants prior to dismissal. Of note is that I took over his care very late in his hospital stay. Imaging studies were reviewed, discuss ed with at bedside 2 days prior to dismissal, discussed with consultants prior to transfer to LTAC as well. Greater than 35 minutes were spent in the discharge process with the patient counseling coordination of care and arrangements for a safe transfer Assessment Assessment ICTATED AND SIGNED BY: MARIA L RAZO MD DATE: 06/19/19 6609 CC: ERON BLACKBURN; TIFFANIE CHARLTON MD; THUY GOODMAN MD; RANDALL GALVIN MD; GHASSAN STEVENS MD; KARLA DAWSON MD; MARIJA CONKLIN MD; BERE QUIROZ MD; DESTINI MATOS MD; MARIA L CRUZ MD ~ CT ANGIO CHEST ABD PELVIS dated 06/11/2019 4:47 AM Indication: Epigastric pain diaphoresis.. Comparison: 01/28/2016 Technique: Contiguous axial imaging the chest abdomen pelvis performed following the intravenous administration of 1 cc Omnipaque 350. One or more of the following individualized dose reduction techniques were utilized for this examination: 1. Automated exposure control 2. Adjustment of the mA and/or kV according to patient size 3. Use of iterative reconstruction technique Findings: Contrast bolus is adequate. Study is somewhat limited due to motion artifact. Ascending aorta is normal in caliber. No intimal flap or periaortic fluid collection. The descending thoracic aorta and abdominal aorta are normal in caliber. No periaortic fluid collection. Heart size is upper limits of normal. No pericardial effusion. No mediastinal, hilar or axillary lymphadenopathy. There is a low-density nodule in the right lobe thyroid gland measures 9 mm, nonspecific. Central airways are patent. There is some mild dependent groundglass opacity in the lower lobes, likely atelectasis. No consolidation or pleural effusion. No pneumothorax. The pancreas is enlarged and there is inflammatory stranding and fluid surrounding the gland. No circumscribed fluid collection to suggest pseudocyst or abscess. The peripancreatic vasculature is grossly patent. There hypodense foci in the gallbladder consistent with stones. No wall thickening. Biliary tree is normal in caliber. Small hypodense focus within the right lobe liver on image 71 measures 4 mm, nonspecific. Spleen is normal in size. Adrenal glands and kidneys are unremarkable. No hydronephrosis. Unopacified GI tract normal in caliber and contour. No focal bowel wall thickening. No inflammatory stranding in the mesentery. Appendix normal in caliber. No ascites or lymphadenopathy. Images of pelvis a nondistended urinary bladder. Prostate gland upper limits of normal in size. No free fluid or lymphadenopathy. Bone windows show no acute findings. Multilevel spondylosis. IMPRESSION: 1. Findings consistent with acute pancreatitis. No apparent acute complication. 2. Small amount of fluid along the pancreas and retroperitoneal reflection. No apparent pseudocyst. 3. Cholelithiasis. 4. Normal caliber aorta with no evidence of dissection. 5. Minimal dependent atelectasis. Otherwise clear lungs. Electronically signed by: Maria L Razo MD (06/11/2019 5:15 AM) [id number] PATIENT: CHRISTOPHER NEWSOME ACCOUNT: [id number] : 1970 LOCATION: [address] [place] [address] AGE: 49 SEX: M EXAM STATUS: ADM IN ORD. PHYSICIAN: WANDA COOPER MD REASON: worsening xray PROCEDURE: CT CHEST WO CONTRAST CT chest and abdomen without contrast: Reason for examination: Worsening appearance to the x-ray with lung opacities and pleural effusion. Comparison is made to previous CT examinations of the chest and abdomen dated 07/04/2019 and 06/22/2019. Helical images were obtained through the chest and abdomen with no intravenous contrast administered. Reconstruction was performed in sagittal and coronal planes. Exposure: One or more of the following individualized dose reduction techniques were utilized for this examination: 1. Automated exposure control 2. Adjustment of the mA and/or kV according to patient size 3. Use of iterative reconstruction technique. Endotracheal tube remains present. No focal lesions are seen within the trachea or mainstem bronchi. No abnormality seen at the thyroid gland. The esophagus shows no focal abnormality. The thoracic aorta is normal in caliber and course. There are small lymph nodes in the mediastinum which are similar to previous exam. The lung ventura show some consolidated infiltrates with air bronchograms in the posterior medial right lower lobe which show minimal change. The left lung field shows a moderate left pleural effusion with some atelectasis or infiltrate at the posterior left lung base. No pneumothorax is seen. No acute bony abnormality seen in the thorax. No abnormality seen at the liver, spleen or adrenal glands. The abdominal aorta appears be normal in course and caliber. No gross abnormality seen at the inferior vena cava. Cholecystostomy tube remains present with collapse of the gallbladder. No gallstones are evident. Gastrostomy tube is present with the balloon in the stomach and the tube tip appearing to lie in the gastric antral region. Drainage tubes remain present in the upper abdomen with no large fluid collections seen but there is still some free fluid present in the abdomen at the colic gutters and in the central mesentery. The pancreas still appears to be enlarged and edematous with poor delineation of the margins with inflammatory changes in the mesentery. This does appear to be slightly improved when compared to previous. The kidneys show no renal masses, renal calculi or evidence of hydronephrosis or obstructive uropathy. There also continues to be focal soft tissue density in the anterior cardiac fat pad appears be slightly more prominent than on previous exam and may represent focal inflammatory process. Evaluation of the intestinal tract is limited but no gross intestinal abnormality is seen. IMPRESSION: Infiltrates with air bronchograms posterior medially at the right lung base without change. Moderate left pleural effusion with atelectasis or infiltrate at the left lung base without significant change. Continued presence of an enlarged edematous pancreas with inflammatory changes in the mesentery consistent with history of necrotic pancreatitis and showing some mild improvement. Continued presence of drainage tubes in the upper abdomen with no significant fluid collections surrounding the tips of these tubes. There is however still some free fluid present in the abdomen abdomen. Soft tissue process anteriorly within the cardiac fat pad which appears slightly more prominent than on previous examination and may reflect an inflammatory process. Electronically signed by: Marleny Waldron MD (07/11/2019 4:26 PM) [id number] [address] [place], [place] [id number] IMAGING REPORT Signed PATIENT: CHRISTOPHER NEWSOME ACCOUNT: [id number] : 1970 LOCATION: PACU-ICU AGE: 49 SEX: M EXAM STATUS: ADM IN ORD. PHYSICIAN: TAYA PEREIRA MD REASON: sob PROCEDURE: CHEST AP ONLY EXAM: CHEST ONE VIEW. HISTORY: Shortness of breath. COMPARISON: 07/18/2019. FINDINGS: A frontal view of the chest is obtained. A tracheostomy appliance is in expected position. A right internal jugular central venous catheter has its tip in the superior cavoatrial junction. Bibasilar atelectasis is better aerated but the inspiration remains small. There are mild perihilar interstitial opacities. A small left pleural effusion is suspected. There is no pneumothorax. The heart is not enlarged. IMPRESSION: 1. Mild pulmonary edema. Aeration is improved but the inspiration remains small. Electronically signed by: Jasson Burroughs MD (07/21/2019 5:05 AM) [facility] DICTATED and SIGNED BY: JACOBO BURROUGHS MD DATE: 07/21/19 050 Discharge Information Condition at Discharge: Stable Disposition/Orders: D/C to Another Facility Scheduled Albuterol Sulfate (Proair Hfa) 8.5 Gm Hfa.aer.ad, 2.5 MG NEB RTQID for bronchospasm for 30 Days Prescribed by: BRENDA JONAS MD on 07/22/19 0915 Enoxaparin Sodium (Enoxaparin Sodium) 40 Mg/0.4 Ml Disp.syrin, 40 MG SQ Q24H for 30 for 30 Days, #30 Prescribed by: BRENDA JONAS MD on 07/22/19914 Meropenem (Meropenem) 500 Mg Vial, 500 MG IV Q6H for intraabdominal infection for 14 Days, #56 Prescribed by: BRENDA JONAS MD on 07/22/19914 Scheduled PRN Acetaminophen (Acetaminophen Supp) 650 Mg Supp.rect, 650 MG ME PRN Q6HRS PRN for MILD PAIN / TEMP for 30 Days, #30 Prescribed by: BRENDA JONAS MD on 07/22/19914 Propofol (Propofol) 10 Mg/1 Ml Vial, 10 MG IV CONT PRN for SEDATION for 30 Days Prescribed by: BRENDA JONAS MD on 07/22/19914 [Metoprolol Iv Push] 5 MG/5 ML VIAL, 5 MG IVP PRN Q6HRS PRN for TACHYCARDIA for 30 Days, #60 Prescribed by: BRENDA JONAS MD on 07/22/19914 Hemodynamically unstable?: No Is patient in severe pain?: No Is NPO status required?: Yes BRENDA JONAS MD Jul 22, 2019 17:31
== END 2019-07-22 13:00 | DRG 4 ==
LOC: ER 04:13 → EEVIPCON 05:24 → 5 SOUTH 05:24 → 1 WEST ICU 06-12 04:15 → CVICU 07-04 11:19 → 1 WEST ICU 07-07 19:18 → CVICU 07-16 13:53 → PACU-ICU 07-18 17:30
PROVIDERS: ADMIT Internal Medicine; ATTEND Internal Medicine
PROC: 02H633Z Insertion of Infusion Device into Right Atrium, Percutaneous Approach (ICD-10-PCS; 2019-06-13)
PROC: B548ZZA Ultrasonography of Superior Vena Cava, Guidance (ICD-10-PCS; 2019-06-13)
PROC: 5A1D70Z Performance of Urinary Filtration, Intermittent, Less than 6 Hours Per Day (ICD-10-PCS; 2019-06-13)
PROC: 5A1955Z Respiratory Ventilation, Greater than 96 Consecutive Hours (ICD-10-PCS; principal; 2019-06-14)
PROC: 5A1D70Z Performance of Urinary Filtration, Intermittent, Less than 6 Hours Per Day (ICD-10-PCS; 2019-06-14)
PROC: 02HV33Z Insertion of Infusion Device into Superior Vena Cava, Percutaneous Approach (ICD-10-PCS; 2019-06-20)
PROC: B548ZZA Ultrasonography of Superior Vena Cava, Guidance (ICD-10-PCS; 2019-06-20)
PROC: 0F9430Z Drainage of Gallbladder with Drainage Device, Percutaneous Approach (ICD-10-PCS; 2019-06-22)
PROC: 0B110F4 Bypass Trachea to Cutaneous with Tracheostomy Device, Open Approach (ICD-10-PCS; 2019-06-22 11:17)
PROC: 30233N1 Transfusion of Nonautologous Red Blood Cells into Peripheral Vein, Percutaneous Approach (ICD-10-PCS; 2019-06-26)
PROC: 0D20XUZ Change Feeding Device in Upper Intestinal Tract, External Approach (ICD-10-PCS; 2019-07-04)
PROC: 0DHA3UZ Insertion of Feeding Device into Jejunum, Percutaneous Approach (ICD-10-PCS; 2019-07-07)
PROC: BD16ZZZ Fluoroscopy of Upper GI and Small Bowel (ICD-10-PCS; 2019-07-07)
PROC: 0W9B3ZZ Drainage of Left Pleural Cavity, Percutaneous Approach (ICD-10-PCS; 2019-07-15)
PROC: 0JH63XZ Insertion of Tunneled Vascular Access Device into Chest Subcutaneous Tissue and Fascia, Percutaneous Approach (ICD-10-PCS; 2019-07-18)
PROC: 02H633Z Insertion of Infusion Device into Right Atrium, Percutaneous Approach (ICD-10-PCS; 2019-07-18)
PROC: B548ZZA Ultrasonography of Superior Vena Cava, Guidance (ICD-10-PCS; 2019-07-18)
DX: A41.9 Sepsis, unspecified organism (principal); J96.01 Acute respiratory failure with hypoxia; K85.10 Biliary acute pancreatitis without necrosis or infection; E43 Unspecified severe protein-calorie malnutrition; G92 Toxic encephalopathy; I50.31 Acute diastolic (congestive) heart failure; K65.0 Generalized (acute) peritonitis; K85.11 Biliary acute pancreatitis with uninfected necrosis; N17.0 Acute kidney failure with tubular necrosis; K65.9 Peritonitis, unspecified; B19.10 Unspecified viral hepatitis B without hepatic coma; E87.0 Hyperosmolality and hypernatremia; J98.11 Atelectasis; K56.0 Paralytic ileus; R18.8 Other ascites; Z99.11 Dependence on respirator [ventilator] status; D64.9 Anemia, unspecified; E66.01 Morbid (severe) obesity due to excess calories; E83.51 Hypocalcemia; E86.0 Dehydration; E87.5 Hyperkalemia; F17.290 Nicotine dependence, other tobacco product, uncomplicated; I11.0 Hypertensive heart disease with heart failure; I16.0 Hypertensive urgency; K21.9 Gastro-esophageal reflux disease without esophagitis; K80.20 Calculus of gallbladder without cholecystitis without obstruction; R65.20 Severe sepsis without septic shock; Z79.4 Long term (current) use of insulin; Z83.3 Family history of diabetes mellitus; Z93.4 Other artificial openings of gastrointestinal tract status
CPT/HCPCS: 32555; 36415; 36556; 36558; 36569; 36600; 49450; 49452; 71045; 71250; 71275; 74018; 74174; 74176; 76937; 77001; 80048; 80053; 80069; 81001; 82040; 82150; 82310; 82803; 82805; 82945; 82962; 83605; 83615; 83690; 83735; 83970; 83986; 84100; 84132; 84157; 84478; 84484; 85007; 85025; 85027; 86704; 86706; 86850; 86900; 86901; 86920; 87040; 87070; 87071; 87075; 87086; 87102; 87116; 87205; 87340; 88112; 88300; 88304; 88305; 89050; 93005; 93970; 93971; 94002; 94003; 94640; 94660; 94760; 96361; 96374; 96375; 96376; A4215; B4087; C1713; C1729; C1751; C1769; C1892; C1894; C9113; J0330; J0360; J0610; J0692; J0694; J0780; J0878; J1100; J1170; J1450; J1650; J1815; J1940; J2020; J2060; J2185; J2248; J2250; J2270; J2310; J2405; J2543; J2704; J3010; J3475; J3480; J3490; J7030; J7042; J7050; J7060; J7120; P9016; P9045; P9046; Q9966; Q9967; 99291-25; G0378; J7613

== ENCOUNTER → 2019-09-11 | Outpatient (CLI) | payer OTHER ==
[2019-08-15 14:05] VITALS: BP 131/72
[~2019-09-11] MED LIST changes: +ACET650S11 PR; +ALBU2.5V8 NEB; +AMLO5TAB10 PO; +BUSP5TAB PO; +CONTRAST GIVEN. MC PRN; +ENOX40DI3 SQ; +FENT1PAT19 TP; +FURO20TA3 PO; +GABA-585 PO; +HYDR-2868 PO; +INSU100C SQ; +INSU100I13 SQ; +IOHEXOL 240 MG/ML 50ML VIAL. PO ONE; +IOHEXOL 300 MG/ML 100ML VIAL. IV ONE; +LABETALOL IV; +MELA3TAB4 PO; +MERO500V24 IV; +METO100T7 PO; +METOPROLOL IVP; +PANT40TA77 PO; +PROP10VI IV; +THIA100T22 PO; +TRAZ-118 PO; +[UNRECOGNIZED DRUG - CODE] IV
--- NOTE | 2019-09-11 08:45 | RAD ---
EXAM: CT Abdomen and Pelvis with IV contrast CLINICAL HISTORY: gallstones, pancreatitis COMPARISON: 07/04/2019, 06/22/2019. Outside CT 08/13/2019 TECHNIQUE: Helical CT of the abdomen and pelvis was performed following the administration of IV contrast. Axial, coronal and sagittal reformatted images were generated. ---PQRS compliance statement - One or more of the following individualized dose reduction techniques were utilized for this study: 1. Automated exposure control 2. Adjustment of the mA and/or kV according to patient size 3. Use of iterative reconstruction technique--- FINDINGS: Lower chest: Small left pleural effusion. Bandlike and linear opacities bilateral lung bases likely scarring/atelectasis. In addition compressive type atelectasis left lower lobe. Trace gynecomastia. Abdomen and pelvis: Liver and biliary system: Hepatic hypoattenuation likely fatty liver. Gallbladder is mildly contracted but otherwise unremarkable. Spleen: Normal in appearance. Pancreas: Marked pancreatic necrosis, with further evolution compared to prior CT 07/04/2019. In the region of the pancreas there is now gas and fluid-filled collection measuring approximately 17.9 x 10.2 cm x 14.6 (transverse by AP by craniocaudal). Associated pigtail catheter is seen at the anterior margin of this collection. Adrenal glands: Unremarkable Kidneys: Symmetric nephrograms. A 1.1 cm hypodense lesion in the left upper pole measures slightly greater than simple fluid and therefore further evaluation with ultrasound is recommended. Additional cysts smaller bilateral hypodense renal lesions are too small to accurately characterize. No hydronephrosis or hydroureter. Vessels: Aorta is grossly normal in caliber. IVC is mildly narrowed may be seen with hypovolemia. Bowel/Peritoneal cavity/Lymph nodes/retroperitoneum: No evidence for bowel obstruction. Oral contrast is seen to the level of the distal small bowel. Moderate colonic stool content. Gastrostomy tube is seen within the stomach. A catheter is seen within the right upper quadrant with balloon tip, possibly jejunostomy tube however endoluminal positioning is not confirmed, although may be decompressed and therefore obscured however can be further assessed following contrast injection. Region of pancreatic necrosis as described above with associated peripancreatic collections extending caudal to the level of the iliac crest, which likely communicate with the principal collection above. There is moderate volume abdominal and pelvic ascites, increased compared to 07/04/2019. Prominent mesenteric and retroperitoneal lymph nodes as well as right upper quadrant lymph nodes, possibly reactive. Small fat and ascites containing periumbilical hernia. Bladder: Decompressed Bones: No aggressive osseous lesion is seen. IMPRESSION: 1. Changes of pancreatic necrosis with mild interval increase compared to prior CT 08/13/2019, appears progressively loculated, with pigtail catheter at the anterior portion of the collection. 2. Gastrostomy tube projects within the stomach. However a right upper quadrant tube with balloon tip is not confirmed to be endoluminal and can be confirmed by contrast injection/tube check. 3. Moderate abdominal and pelvic ascites, stable to marginally increased in size compared to 08/13/2019. 4. 1.1 cm hypodense left upper pole renal lesion measures greater than simple fluid and further evaluation with ultrasound is recommended. 5. IVC is mildly narrowed, nonspecific, possibly physiologic but may also be seen with hypovolemia. Electronically signed by: Jonathan Eaton MD (09/11/2019 8:43 AM) [id number]
== END | disposition home or self-care (01) ==
LOC: CT 06:35
PROVIDERS: ATTEND Surgery
DX: K42.9 Umbilical hernia without obstruction or gangrene (principal); K85.10 Biliary acute pancreatitis without necrosis or infection; J90 Pleural effusion, not elsewhere classified; N32.89 Other specified disorders of bladder; R18.8 Other ascites
CPT/HCPCS: 74177; Q9966; Q9967

== ENCOUNTER 2019-10-16 08:32 | Outpatient (CLI) | payer OTHER ==
[~2019-10-16] VITALS: Ht 175.3 cm; Wt 70.3 kg
[~2019-10-16 08:32] MED LIST changes: -CONTRAST GIVEN. MC PRN; -IOHEXOL 240 MG/ML 50ML VIAL. PO ONE; -IOHEXOL 300 MG/ML 100ML VIAL. IV ONE
[2019-10-16 08:53] VITALS: BP 96/59
[2019-10-16] MEDS ORDERED: AMLO10TA8 PO (08:59)
[2019-10-16] MEDS ORDERED: METF500T16 PO (08:59)
[2019-10-16] MEDS ORDERED: IOHEXOL 240 MG/ML 50ML VIAL. ONE (09:00)
[2019-10-16] MEDS ORDERED: ACET500T68 PO (09:33)
[2019-10-16] MEDS ORDERED: OXYC15TA3 PO (09:33)
[2019-10-16] MEDS ORDERED: INSU100V13 SQ (09:33)
[2019-10-16] MEDS ORDERED: FERR325T14 PO (09:33)
[2019-10-16] MEDS ORDERED: ALPR0.5T6 PO (09:33)
[2019-10-16] MEDS ORDERED: IOHEXOL 240 MG/ML 50ML VIAL. IJ ONE (09:45)
[2019-10-16] MEDS ORDERED: CONTRAST GIVEN. MC PRN (09:45)
[2019-10-16 10:30] VITALS: BP 100/64
--- NOTE | 2019-10-16 10:51 | NUR ---
Discharge Note: CHRISTOPHER NEWSOME Discharge instructions and discharge home medications reviewed with Patient and a copy given. All questions have been answered and understanding verbalized. The following instructions and handouts were given: incision site care Discontinued lines and drains: JOSE drain intact, site redressed by Cate ONEILL and additional dressing care items given to patient. Patient discharged to Home or Self Care withSpousevia Ambulated
--- NOTE | 2019-10-16 11:02 | RAD ---
Procedure: Fluoroscopic guided abscessogram and drain removal Clinical Indication: 49-year-old with large pancreatic pseudocyst an indwelling drain. No recent fevers or abdominal pain. No significant output from the drainage catheter for the past one to 2 weeks. Patient has not been flushing his catheter. Sedation: None Antibiotics: None Exposure: Kerma-Area Product: 23 Gycm2 Sterility: The procedure was performed in its entirety using appropriate elements of sterile technique. Consent: The procedure was explained in its entirety to the patient or the patients designated self pay representative by a member of the treatment team, including a discussion of the risks, benefits and commonly accepted alternatives to the procedure, as well as the expected consequences of no therapy whatsoever. Discussion of the risks included, but was not limited to, those that are most frequent and those that are rare but possibly severe or life-threatening, as well as the possibility of unforeseen complications. Technique and Findings: Following informed consent, the patient was prepped and draped in usual sterile fashion. The existing drain was cleansed with alcohol swab and contrast abscessogram was performed. The large pancreatic pseudocyst cavity persists across the midline and extends caudally over the right medial hemiabdomen. This cavity appears to be occupied by large quantities of viscous debris. There is minimal aspirate through the drain. Within the left hemiabdomen, there are 2 blind-ending limbs of the cavity. Following injection of only 10 to 20 cc of contrast, there is rapid fistulization between the dominant central portion of the pseudocyst and what appears to be the junction of the first and second portion of the duodenum. Following a discussion with Dr. Smyth, the drain was removed. Complications: No immediate Impression: 1. Persistent large pancreatic pseudocyst with copious internal viscus debris resulting in minimal output. 2. Early fistulization is noted between the body the pseudocyst and the junction of the 1st-2nd portion of the duodenum. This may explain the lack of output through the drainage catheter. 3. Successful removal of the drain.
== END 2019-10-16 10:50 | disposition home or self-care (01) ==
LOC: INTRAD 08:32
PROVIDERS: ATTEND Surgery
DX: Z48.03 Encounter for change or removal of drains (principal); I11.0 Hypertensive heart disease with heart failure; I50.9 Heart failure, unspecified; K21.9 Gastro-esophageal reflux disease without esophagitis; Z79.899 Other long term (current) drug therapy; Z72.89 Other problems related to lifestyle; Z97.8 Presence of other specified devices
CPT/HCPCS: 49424; 76080; Q9966

== ENCOUNTER 2019-10-21 16:46 | Inpatient (IN) | payer OTHER ==
[~2019-10-21] VITALS: Ht 175.3 cm; Wt 70.5 kg
[~2019-10-21 16:46] MED LIST changes: +ACET500T68 PO; +ALPR0.5T6 PO; +AMLO10TA8 PO; +FERR325T14 PO; +INSU100V13 SQ; +METF500T16 PO; +OXYC15TA3 PO
--- NOTE | 2019-10-21 17:59 | PHYS DOC ---
Past Medical History Past Medical History: GERD (ALVARO PIMENTEL APRN) Past Surgical History: No Surgical History (ALVARO PIMENTEL APRN) Smoking Status: Never Smoker Alcohol Use: Occasionally Drug Use: None (ALVARO PIMENTEL APRN) General Adult EDM: Chief Complaint: DIARRHEA HPI: HPI: Patient is a 49 year old male with history of gallstone pancreatitis requiring drains and feeding tube earlier this year presents with his for evaluation of 8 episodes of diarrhea since 10:00 this morning. He reports generalized weakness. His is concerned that he is not getting enough nutrition. She reports his blood pressures have been in the 90s since being on Lasix for his lower extremity swelling. Patient denies any chest pain, fevers, shortness of breath. He has been tracking his blood glucose and has remained stable in the 90s and low 100s on metformin. He denies any abdominal pain. He reports the distention that is noted is less than previous. He reports 50 pound weight loss since May. (ALVARO PIMENTEL APRN) Review of Systems: Review of Systems: Constitutional: Denies fever or chills. [] Eyes: Denies change in visual acuity. [] HENT: Denies nasal congestion or sore throat. [] Respiratory: Denies cough or shortness of breath. [] Cardiovascular: Denies chest pain or edema. [] GI: Denies abdominal pain, nausea, vomiting, bloody stools or diarrhea. [] : Denies dysuria. [] Musculoskeletal: Denies back pain or joint pain. [] Integument: Denies rash. [] Neurologic: Denies headache, focal weakness or sensory changes. [] Endocrine: Denies polyuria or polydipsia. [] Lymphatic: Denies swollen glands. [] Psychiatric: Denies depression or anxiety. [] (ALVARO PIMENTEL APRN) Heart Score: Risk Factors: Risk Factors: DM, Current or recent (<one month) smoker, HTN, HLP, family his tory of CAD, obesity. Risk Scores: Score 0 - 3: 2.5% MACE over next 6 weeks - Discharge Home Score 4 - 6: 20.3% MACE over next 6 weeks - Admit for Clinical Observation Score 7 - 10: 72.7% MACE over next 6 weeks - Early Invasive Strategies (ALVARO PIMENTEL APRN) Current Medications: Current Medications Medications (Trade) Dose Ordered Sig/Jesse Start Time Stop Time Status Last Admin Dose Admin Sodium Chloride 1,000 ml @ 1,000 mls/hr 1X ONCE 10/21/19 18:00 10/21/19 18:59 UNV (ALVARO PIMENTEL APRN) Allergies: Allergies: Allergies Coded Allergies Type Severity Reaction Last Updated Verified No Known Drug Allergies 01/28/16 No (ALVARO PIMENTEL APRN) Physical Exam: PE: Constitutional: Well developed, well nourished, no acute distress, ill- appearing. [] HENT: Normocephalic, atraumatic, bilateral external ears normal, oropharynx moist, no oral exudates, nose normal. [] Eyes: PERRLA, EOMI, conjunctiva normal, no discharge. [] Neck: Normal range of motion, no tenderness, supple, no stridor. [] Cardiovascular:Heart rate regular rhythm, no murmur [] Lungs & Thorax: Bilateral breath sounds clear to auscultation, shallow respirations [] Abdomen: Bowel sounds normal, soft, distended, no tenderness, no pulsatile masses, no rebound tenderness, no guarding. [] Skin: Warm, dry, no erythema, no rash. [] Back: No tenderness, no CVA tenderness. [] Extremities: No tenderness, no cyanosis, no clubbing, ROM intact, bilateral lower extremity edema present. [] Neurologic: Alert and oriented X 3, normal motor function, normal sensory function, no focal deficits noted. [] Psychologic: Affect normal, judgement normal, mood normal. [] (ALVARO PIMENTEL APRN) Current Patient Data: Labs: Laboratory Tests Test 10/21/19 17:36 White Blood Count 19.4 x10^3/uL Red Blood Count 3.46 x10^6/uL Hemoglobin 8.6 g/dL Hematocrit 27.4 % Mean Corpuscular Volume 79 fL Mean Corpuscular Hemoglobin 25 pg Mean Corpuscular Hemoglobin Concent 31 g/dL Red Cell Distribution Width 21.2 % Platelet Count 456 x10^3/uL Neutrophils (%) (Auto) 87 % Lymphocytes (%) (Auto) 4 % Monocytes (%) (Auto) 9 % Eosinophils (%) (Auto) 0 % Basophils (%) (Auto) 0 % Neutrophils # (Auto) 16.9 x10^3/uL Lymphocytes # (Auto) 0.9 x10^3/uL Monocytes # (Auto) 1.7 x10^3/uL Eosinophils # (Auto) 0.0 x10^3/uL Basophils # (Auto) 0.0 x10^3/uL Segmented Neutrophils % 63 % Band Neutrophils % 24 % Lymphocytes % 5 % Monocytes % 8 % Nucleated Red Blood Cells 1 Toxic Granulation Marked Platelet Estimate Increased Hypochromasia Mod Anisocytosis Mod Sodium Level 131 mmol/L Potassium Level 4.6 mmol/L Chloride Level 97 mmol/L Carbon Dioxide Level 27 mmol/L Anion Gap 7 Blood Urea Nitrogen 17 mg/dL Creatinine 0.9 mg/dL Estimated GFR (Cockcroft-Gault) 108.5 BUN/Creatinine Ratio 19 Glucose Level 130 mg/dL Lactic Acid Level 2.2 mmol/L Calcium Level 7.9 mg/dL Total Bilirubin 0.7 mg/dL Aspartate Amino Transf (AST/SGOT) 26 U/L Alanine Aminotransferase (ALT/SGPT) 23 U/L Alkaline Phosphatase 283 U/L Total Protein 6.7 g/dL Albumin 1.8 g/dL Albumin/Globulin Ratio 0.4 Lipase 76 U/L Current Medications Medications (Trade) Dose Ordered Sig/Jesse Route PRN Reason Start Time Stop Time Status Last Admin Dose Admin Sodium Chloride 1,000 ml @ 1,000 mls/hr 1X ONCE IV 10/21/19 18:00 10/21/19 18:59 DC 10/21/19 18:18 Levofloxacin/ Dextrose 150 ml @ 100 mls/hr 1X ONCE IV 10/21/19 19:45 10/21/19 21:14 10/21/19 19:58 (ALVARO PIMENTEL APRN) EKG: EKG: [] (ALVARO PIMENTEL APRN) Radiology/Procedures: Radiology/Procedures: [] Impression: PROCEDURE: CHEST AP ONLY AP chest. HISTORY: Sepsis AP view was taken of the chest. There is an infiltrate or atelectasis in the left lower lobe. A small left pleural effusion is possible. Heart is normal in size. Patient's taken a poor inspiration. IMPRESSION: 1. Left lower lobe atelectasis or infiltrate. 2. Small left effusion. Electronically signed by: Jim López MD (10/21/2019 7:25 PM) [facility] (ALVARO PIMENTEL APRN) Course & Med Decision Making: Course & Med Decision Making Pertinent Labs and Imaging studies reviewed. (See chart for details) [Patient with leukocytosis of 19, chest x-ray indicates atelectasis versus left lower lobe infiltrate, treated with Levaquin, lactic acid 2.2. Patient's blood pressure remains soft at 98/54, discussed this with admitting physician. Patient has not had any episodes of diarrhea, discussed with patient need to collect stool for cultures if he has a bowel movement. Discussed patient's case with Dr. Quiñonez who agrees to admit patient.] (ALVARO PIMENTEL APRN) Dragon Disclaimer: Dragon Disclaimer: This electronic medical record was generated, in whole or in part, using a voice recognition dictation system. (ALVARO PIMENTEL APRN) Departure Departure Impression: Primary Impression: Sepsis Additional Impression: Pneumonia Disposition: ADMITTED INPATIENT Condition: STABLE Referrals: TK HOSKINS (PCP) Justicifation of Admission Dx: Justifications for Admission: Justification of Admission Dx: Yes Comminuty Aquired Pneumonia: Med-High Risk Pt Sepsis: Infection (ALVARO PIMENTEL APRN) Attending Signature Attending Signature I have participated in the care of this patient and I have reviewed and agree with all pertinent clinical information above including history, exam, and recommendations. (FRANCISCO BETANCOURT DO) ALVARO PIMENTEL APRN Oct 21, 2019 17:59 FRANCISCO BETANCOURT DO Oct 21, 2019 23:20
[2019-10-21] MEDS ORDERED: IV NORMAL SALINE 1000ML BAG 1,000 ML IV ONE ×2 (18:00→22:30)
[2019-10-21 18:13] LABS: BASO % 0 % (0-3); EOS % 0 % (0-3); HEMATOCRIT 27.4 % (39.0-53.0); HEMOGLOBIN 8.6 g/dL (13.0-17.5); LYMPH # 0.9 x10^3/uL (1.0-4.8); LYMPH % 4 % (24-48); MEAN CORPUSCULAR HEMOGLOBIN 25 pg (25-35); MEAN CORPUSCULAR HGB CONC 31 g/dL (31-37); MEAN CORPUSCULAR VOLUME 79 fL (79-100); MONO # 1.7 x10^3/uL (0.0-1.1); MONO % 9 % (0-9); NEUT # 16.9 x10^3/uL (1.8-7.7); NEUT % 87 % (31-73); PLATELET COUNT 456 x10^3/uL (140-400); RED BLOOD COUNT 3.46 x10^6/uL (4.30-5.70); RED CELL DISTRIBUTION WIDTH 21.2 % (11.5-14.5); WHITE BLOOD COUNT 19.4 x10^3/uL (4.0-11.0)
[2019-10-21 18:25] LABS: CALCIUM 7.9 mg/dL (8.5-10.1); CREATININE 0.9 mg/dL (0.7-1.3); GFR 108.5; POTASSIUM 4.6 mmol/L (3.5-5.1)
[2019-10-21 18:31] LABS: ALBUMIN 1.8 g/dL (3.4-5.0); ALBUMIN/GLOBULIN RATIO 0.4 (1.0-1.7); TOTAL BILIRUBIN 0.7 mg/dL (0.2-1.0); TOTAL PROTEIN 6.7 g/dL (6.4-8.2)
[2019-10-21 18:52] LABS: % BANDS 24 % (0-9); % LYMPHS 5 % (24-48); % MONOS 8 % (0-10); % SEGS 63 % (35-66); NUCLEATED RBC 1
[2019-10-21 18:53] LABS: HYPOCHROMIA MOD; PLT ESTIMATE INCREASED (ADEQUATE)
[2019-10-21 18:54] LABS: ANISOCYTOSIS MOD; TOXIC GRANULATION MARKED
--- NOTE | 2019-10-21 19:28 | RAD ---
AP chest. HISTORY: Sepsis AP view was taken of the chest. There is an infiltrate or atelectasis in the left lower lobe. A small left pleural effusion is possible. Heart is normal in size. Patient's taken a poor inspiration. IMPRESSION: 1. Left lower lobe atelectasis or infiltrate. 2. Small left effusion. Electronically signed by: Jim López MD (10/21/2019 7:25 PM) [facility]
[2019-10-21] MEDS ORDERED: MORPHINE SULFATE 2 MG/ML VIAL. IV PRN (20:30)
[2019-10-21] MEDS ORDERED: ONDANSETRON PF 4 MG/2 ML VIAL. IV PRN (20:30)
[2019-10-21] MEDS: oxyCODONE IR 5 MG TABLET PO PRN (21:15)
[2019-10-21 22:35] VITALS: BP 83/47
[2019-10-21] MEDS ORDERED: traZODone 50 MG TABLET. PO ONE (23:30)
[2019-10-21] MEDS ORDERED: ALPRAZolam 0.5 MG TABLET PO ONE (23:30)
[2019-10-21] MEDS ORDERED: BUSP10TA PO (23:44)
[2019-10-22 03:50] VITALS: BP 88/53
[2019-10-22] MEDS: oxyCODONE IR 5 MG TABLET PO PRN ×3 (05:46→21:07)
[2019-10-22 07:00] VITALS: BP 89/54
--- NOTE | 2019-10-22 07:55 | PDOC1 ---
History and Physical Date of Admission Date of Admission DATE: 10/22/19 TIME: 07:30 Identification/Chief Complaint Chief Complaint Diarrhea, weight loss Source Source: Caregiver, Chart review, Patient History of Present Illness History of Present Illness Mr Mata is a 49yo M w/ PMHx pancreatitis s/p ex-lap with pancreatic necrosectomy, gastrostomy tube placement, s/p tracheostomy, hepatitis B who returns to the hospital with his from home c/o diarrhea and RUQ pain that began on 10/21/2019. He was hospitalized for what was ultimately diagnosed as gallstone pancreatitis 06/11/2019-07/22/2019 [underwent hemodialysis for renal failure, stopped 07/04/2019, on 06/22/2019 is s/p ex-lap with pancreatic necrosectomy, cholecystostomy tube placement, gastrostomy tube placement, 5 drains, 1.5L ascites drained, and s/p tracheostomy at that time] and discharged to [facility] for further recovery. He reports he has been recovering at home with his . Has been off antibiotics since 07/31/2019. He has been short of breath but that is no different than it has been for the past 2 months. No cough no recent sick contacts. He is lost 60 pounds since prior to his May hospitalization. Labs: WBC 19.4, Hb 8.6, platelets 456, NA 131, K4.6, BUN 17, CR 0.9, glucose 130, lactic acid 2.2, albumin 1.8, alkaline phosphatase 283, calcium 7.9 lipase normal. CXR interpreted as atelectasis versus left lower lobe infiltrate, was dosed with Levaquin in ED. BP 98/54. Admitted for further care. Past Medical History GI: GERD Hepatobiliary: Hep A/B/C (B), Other Past Surgical History Past Surgical History: Other Family History Family History: Other Social History Smoke: No ALCOHOL: social Drugs: None Current Problem List Problem List Problems Medical Problems: (1) Pneumonia Status: Acute (2) Sepsis Status: Acute Current Medications Current Medications Current Medications Sodium Chloride 1,000 ml @ 1,000 mls/hr 1X ONCE IV Last administered on 10/21/19at 18:18; Start 10/21/19 at 18:00; Stop 10/21/19 at 18:59; Status DC Levofloxacin/ Dextrose 150 ml @ 100 mls/hr 1X ONCE IV Last administered on 10/21/19at 19:58; Start 10/21/19 at 19:45; Stop 10/21/19 at 21:14; Status DC Ondansetron HCl (Zofran) 4 mg PRN Q8HRS PRN IV NAUSEA/VOMITING; Start 10/21/19 at 20:30; Stop 10/22/19 at 20:29 Morphine Sulfate (Morphine Sulfate) 2 mg PRN Q2HR PRN IV PAIN; Start 10/21/19 at 20:30; Stop 10/22/19 at 20:29 Oxycodone HCl (Roxicodone) 15 mg PRN Q6HRS PRN PO PAIN Last administered on 10/22/19at 05:46; Start 10/21/19 at 21:00 Sodium Chloride 1,000 ml @ 1,000 mls/hr 1X ONCE IV Last administered on 10/21/19at 22:18; Start 10/21/19 at 22:30; Stop 10/21/19 at 23:29; Status DC Alprazolam (Xanax) 0.5 mg 1X ONCE PO Last administered on 10/21/19at 23:22; Start 10/21/19 at 23:30; Stop 10/21/19 at 23:31; Status DC Trazodone HCl (Desyrel) 50 mg 1X ONCE PO Last administered on 10/21/19at 23:22; Start 10/21/19 at 23:30; Stop 10/21/19 at 23:31; Status DC Active Scripts Active Reported Buspirone Hcl 10 Mg Tablet 1 Tab PO BIDACBL Alprazolam 0.5 Mg Tablet 1 Tab PO HS Acetaminophen 500 Mg Tablet 1 Tab PO PRN Q6HRS PRN 15 Days Levemir (Insulin Detemir) 100 Unit/1 Ml Vial 5 Unit SQ DAILY PRN 5 units daily in morning if bs greater than 200. Oxycodone Hcl Immed.release (Oxycodone Hcl) 15 Mg Tablet 15 Mg PO PRN Q6HRS PRN Ferrous Sulfate 325 Mg Tablet 65 Mg PO BID Metformin Hcl 500 Mg Tablet 500 Mg PO BIDWMEALS Amlodipine Besylate 10 Mg Tablet 10 Mg PO DAILY Pantoprazole Sodium (Pantoprazole Sodium) 40 Mg Tablet.dr 40 Mg PO DAILYAC Trazodone Hcl 50 Mg Tablet 1 Tab PO QHS Furosemide 20 Mg Tablet 1 Tab PO DAILY Gabapentin (Gabapentin) 100 Mg Capsule 100 Mg PO TID Metoprolol Tartrate 100 Mg Tablet 1 Tab PO BID Melatonin 3 Mg Tablet 2 Tab PO QHS Allergies Allergies: Coded Allergies: No Known Drug Allergies (Unverified , 01/28/16) ROS General: YES: Fatigue, Malaise, Appetite PSYCHOLOGICAL ROS: YES: Anxiety; No: Behavioral Disorder, Concentration difficultie, Decreased libido, Depression, Disorientation, Hallucinations, Hostility, Irritablity, Memory difficulties, Mood Swings, Obsessive thoughts, Physical abuse, Sexual abuse, Sleep disturbances, Suicidal ideation, Other Eyes: No Blurry vision, No Decreased vision, No Double vision, No Dry eyes, No Excessive tearing, No Eye Pain, No Itchy Eyes, No Loss of vision, No Photophobia, No Scotomata, No Uses contacts, No Uses glasses, No Other HEENT: No: Heacaches, Visual Changes, Hearing change, Nasal congestion, Nasal discharge, Oral lesions, Sinus pain, Sore Throat, Epistaxis, Sneezing, Snoring, Tinnitus, Vertigo, Vocal changes, Other ALLERGY AND IMMUNOLOGY: No: Hives, Insect Bite Sensitivity, Itchy/Watery Eyes, Nasal Congestion, Post Nasal Drip, Seasonal Allergies, Other Hematological and Lymphatic: No: Bleeding Problems, Blood Clots, Blood Trans fusions, Brusing, Night Sweats, Pallor, Swollen Lymph Nodes, Other ENDOCRINE: No: Breast Changes, Galactorrhea, Hair Pattern Changes, Hot Flashes, Malaise/lethargy, Mood Swings, Palpitations, Polydipsia/polyuria, Skin Changes, Temperature Intolerance, Unexpected Weight Changes, Other Breast: No New/Changing Breast Lumps, No Nipple changes, No Nipple discharge, No Other Respiratory: YES: Shortness of breath, SOB with excertion; No: Cough, Hemoptysis, Orthopnea, Pleuritic Pain, Sputum Changes, Stridor, Tachypnea, Wheezing, Other Cardiovascular: No Chest Pain, No Palpitations, No Orthopnea, No Paroxysmal Noc. Dyspnea, No Edema, No Lt Headedness, No Other Gastrointestinal: Yes Nausea, Yes Abdominal Pain, Yes Diarrhea; No Vomiting, No Constipation, No Melena, No Hematochezia, No Other Genitourinary: No Dysuria, No Frequency, No Incontinence, No Hematuria, No Retention, No Discharge, No Urgency, No Pain, No Flank Pain, No Other, No , No , No , No , No , No , No Musculoskeletal: No Gait Disturbance, No Joint Pain, No Joint Stiffness, No Joint Swelling, No Muscle Pain, No Muscular Weakness, No Pain In:, No Swelling In:, No Other Neurological: No Behavorial Changes, No Bowel/Bladder ControlChng, No Confusion, No Dizziness, No Gait Disturbance, No Headaches, No Impaired Coord/balance, No Memory Loss, No Numbness/Tingling, No Seizures, No Speech Problems, No Tremors, No Visual Changes, No Weakness, No Other Skin: No Dry Skin, No Eczema, No Hair Changes, No Lumps, No Mole Changes, No Mottling, No Nail Changes, No Pruritus, No Rash, No Skin Lesion Changes, No Other, No Acne Physical Exam General: Alert, Oriented X3, Cooperative, mild distress, Other (Cachectic appearing) HEENT: Atraumatic, PERRLA, EOMI, Mucous membr. moist/pink, Other (Visible maxillary ridge) Lungs: Clear to auscultation, Normal air movement Heart: S1S2, RRR, no thrills, no rubs, no gallops, no murmurs Abdomen: Normal bowel sounds, Soft, No hepatosplenomegaly, No masses, Other (PEG site clean dry intact, RUQ tender) Male Genitals Exam: normal genitalia, normal prostate Extremities: No clubbing, No cyanosis, No edema, Normal pulses, No tenderness/swelling Skin: No rashes, No breakdown, No significant lesion Neuro: Normal gait, Normal speech, Strength at 5/5 X4 ext, Normal tone, Sensation intact, Cranial nerves 3-12 NL, Reflexes 2+ Psych/Mental Status: Mental status NL, Mood NL Vitals Vitals Vital Signs Date Time Temp Pulse Resp B/P (MAP) Pulse Ox O2 Delivery O2 Flow Rate FiO2 10/22/19 05:46 18 Room Air 10/22/19 03:50 98.0 88 88/53 (65) 97 98.0 Labs Labs Laboratory Tests Test 10/21/19 17:36 10/21/19 21:25 White Blood Count 19.4 x10^3/uL (4.0-11.0) Red Blood Count 3.46 x10^6/uL (4.30-5.70) Hemoglobin 8.6 g/dL (13.0-17.5) Hematocrit 27.4 % (39.0-53.0) Mean Corpuscular Volume 79 fL (79-100) Mean Corpuscular Hemoglobin 25 pg (25-35) Mean Corpuscular Hemoglobin Concent 31 g/dL (31-37) Red Cell Distribution Width 21.2 % (11.5-14.5) Platelet Count 456 x10^3/uL (140-400) Neutrophils (%) (Auto) 87 % (31-73) Lymphocytes (%) (Auto) 4 % (24-48) Monocytes (%) (Auto) 9 % (0-9) Eosinophils (%) (Auto) 0 % (0-3) Basophils (%) (Auto) 0 % (0-3) Neutrophils # (Auto) 16.9 x10^3/uL (1.8-7.7) Lymphocytes # (Auto) 0.9 x10^3/uL (1.0-4.8) Monocytes # (Auto) 1.7 x10^3/uL (0.0-1.1) Eosinophils # (Auto) 0.0 x10^3/uL (0.0-0.7) Basophils # (Auto) 0.0 x10^3/uL (0.0-0.2) Segmented Neutrophils % 63 % (35-66) Band Neutrophils % 24 % (0-9) Lymphocytes % 5 % (24-48) Monocytes % 8 % (0-10) Nucleated Red Blood Cells 1 Toxic Granulation Marked Platelet Estimate Increased (ADEQUATE) Hypochromasia Mod Anisocytosis Mod Sodium Level 131 mmol/L (136-145) Potassium Level 4.6 mmol/L (3.5-5.1) Chloride Level 97 mmol/L (98-107) Carbon Dioxide Level 27 mmol/L (21-32) Anion Gap 7 (6-14) Blood Urea Nitrogen 17 mg/dL (8-26) Creatinine 0.9 mg/dL (0.7-1.3) Estimated GFR (Cockcroft-Gault) 108.5 BUN/Creatinine Ratio 19 (6-20) Glucose Level 130 mg/dL (70-99) Lactic Acid Level 2.2 mmol/L (0.4-2.0) 1.4 mmol/L (0.4-2.0) Calcium Level 7.9 mg/dL (8.5-10.1) Total Bilirubin 0.7 mg/dL (0.2-1.0) Aspartate Amino Transf (AST/SGOT) 26 U/L (15-37) Alanine Aminotransferase (ALT/SGPT) 23 U/L (16-63) Alkaline Phosphatase 283 U/L (46-116) Total Protein 6.7 g/dL (6.4-8.2) Albumin 1.8 g/dL (3.4-5.0) Albumin/Globulin Ratio 0.4 (1.0-1.7) Lipase 76 U/L (73-393) Laboratory Tests Test 10/21/19 17:36 10/21/19 21:25 White Blood Count 19.4 x10^3/uL (4.0-11.0) Red Blood Count 3.46 x10^6/uL (4.30-5.70) Hemoglobin 8.6 g/dL (13.0-17.5) Hematocrit 27.4 % (39.0-53.0) Mean Corpuscular Volume 79 fL (79-100) Mean Corpuscular Hemoglobin 25 pg (25-35) Mean Corpuscular Hemoglobin Concent 31 g/dL (31-37) Red Cell Distribution Width 21.2 % (11.5-14.5) Platelet Count 456 x10^3/uL (140-400) Neutrophils (%) (Auto) 87 % (31-73) Lymphocytes (%) (Auto) 4 % (24-48) Monocytes (%) (Auto) 9 % (0-9) Eosinophils (%) (Auto) 0 % (0-3) Basophils (%) (Auto) 0 % (0-3) Neutrophils # (Auto) 16.9 x10^3/uL (1.8-7.7) Lymphocytes # (Auto) 0.9 x10^3/uL (1.0-4.8) Monocytes # (Auto) 1.7 x10^3/uL (0.0-1.1) Eosinophils # (Auto) 0.0 x10^3/uL (0.0-0.7) Basophils # (Auto) 0.0 x10^3/uL (0.0-0.2) Segmented Neutrophils % 63 % (35-66) Band Neutrophils % 24 % (0-9) Lymphocytes % 5 % (24-48) Monocytes % 8 % (0-10) Nucleated Red Blood Cells 1 Toxic Granulation Marked Platelet Estimate Increased (ADEQUATE) Hypochromasia Mod Anisocytosis Mod Sodium Level 131 mmol/L (136-145) Potassium Level 4.6 mmol/L (3.5-5.1) Chloride Level 97 mmol/L (98-107) Carbon Dioxide Level 27 mmol/L (21-32) Anion Gap 7 (6-14) Blood Urea Nitrogen 17 mg/dL (8-26) Creatinine 0.9 mg/dL (0.7-1.3) Estimated GFR (Cockcroft-Gault) 108.5 BUN/Creatinine Ratio 19 (6-20) Glucose Level 130 mg/dL (70-99) Lactic Acid Level 2.2 mmol/L (0.4-2.0) 1.4 mmol/L (0.4-2.0) Calcium Level 7.9 mg/dL (8.5-10.1) Total Bilirubin 0.7 mg/dL (0.2-1.0) Aspartate Amino Transf (AST/SGOT) 26 U/L (15-37) Alanine Aminotransferase (ALT/SGPT) 23 U/L (16-63) Alkaline Phosphatase 283 U/L (46-116) Total Protein 6.7 g/dL (6.4-8.2) Albumin 1.8 g/dL (3.4-5.0) Albumin/Globulin Ratio 0.4 (1.0-1.7) Lipase 76 U/L (73-393) Images Images CXR: AP view was taken of the chest. There is an infiltrate or atelectasis in the left lower lobe. A small left pleural effusion is possible. Heart is normal in size. Patient's taken a poor inspiration. IMPRESSION: 1. Left lower lobe atelectasis or infiltrate. 2. Small left effusion. VTE Prophylaxis Ordered VTE Prophylaxis Devices: Yes VTE Pharmacological Prophylaxi: Yes Assessment/Plan Assessment/Plan A/P: RUQ abdominal pain - with recent h/o gallstone pancreatitis, will obtain abdomi nal US, consult GI and general surgery, well known to both services. CT abdomen/pelvis as well. Will need anxiolytic prior. Leukocytosis - with tachcardia he meets SIRS criteria, given IVF and empiric levaquin for sepsis. I do not see signs of pneumonia. 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 will obtain CT chest/abd/pelvis with contrast Hyperglycemia - cont insulin FEN - General diet PPX - lovenox FULL CODE Dispo - inpatient CVC. Low threshold for ICU transfer. Justicifation of Admission Dx: Justifications for Admission: Justification of Admission Dx: Yes Comminuty Aquired Pneumonia: Med-High Risk Pt Sepsis: Infection JUAN ANTONIO OWUSU MD Oct 22, 2019 07:55
[2019-10-22] MEDS ORDERED: DEXTROSE 50% 25 GM / 50ML DISP.SYRIN. IV PRN (08:00)
[2019-10-22] MEDS ORDERED: ACETAMINOPHEN 500 MG TABLET PO PRN (08:00)
--- NOTE | 2019-10-22 08:46 | RAD ---
ABDOMEN COMPLETE History: Reason: RUQ pain, recent gallstone pancreatitis / Spl. Instructions: / History: Comparison: CT September 11, 2019. Technique: Transabdominal ultrasound images are obtained of the abdomen. Findings: Visualized pancreas is is not well seen due to overlying bowel gas. Liver is increased in echogenicity. Right hepatic lobe measures 16 cm. Portal flow is hepatopedal. Gallbladder is not evaluated due to overlying bowel gas. Common bile duct measures , bile duct is not well evaluated due to overlying structures and bowel gas. mm in diameter. The right kidney measures 11.7 x 5.9 x 5.7 cm. No hydronephrosis. Small right renal cyst measures 1.0 cm. No follow-up imaging is recommended per consensus recommendations based on imaging criteria. Left kidney measures 11.1 x 5.0 x 5.3 cm. No hydronephrosis. Aorta and IVC not well seen due to overlying bowel gas. Spleen not evaluated due to overlying structures. IMPRESSION: 1. Degraded evaluation due to overlying structures and bowel gas, as described. 2. Increased hepatic echotexture, may indicate steatosis. Electronically signed by: Khurram Faust DO (10/22/2019 8:43 AM) [id number]
[2019-10-22 09:02] LABS: BASO # 0.1 x10^3/uL (0.0-0.2); BASO % 1 % (0-3); EOS % 0 % (0-3); HEMATOCRIT 27.1 % (39.0-53.0); HEMOGLOBIN 8.6 g/dL (13.0-17.5); LYMPH # 0.5 x10^3/uL (1.0-4.8); LYMPH % 3 % (24-48); MEAN CORPUSCULAR HEMOGLOBIN 25 pg (25-35); MEAN CORPUSCULAR HGB CONC 32 g/dL (31-37); MEAN CORPUSCULAR VOLUME 78 fL (79-100); MONO # 1.1 x10^3/uL (0.0-1.1); MONO % 6 % (0-9); NEUT % 91 % (31-73); PLATELET COUNT 380 x10^3/uL (140-400); RED BLOOD COUNT 3.46 x10^6/uL (4.30-5.70); RED CELL DISTRIBUTION WIDTH 21.8 % (11.5-14.5); WHITE BLOOD COUNT 18.7 x10^3/uL (4.0-11.0)
[2019-10-22] MEDS: GABAPENTIN 100 MG CAPSULE. PO SCH ×3 (09:18→21:07)
[2019-10-22] MEDS: PANTOPRAZOLE 40 MG TABLET.DR. PO SCH (09:19)
[2019-10-22] MEDS: FERROUS SULFATE 325 MG TABLET. PO SCH ×2 (09:19→16:52)
[2019-10-22 09:28] LABS: CALCIUM 7.6 mg/dL (8.5-10.1); CREATININE 0.9 mg/dL (0.7-1.3); GFR 108.5; POTASSIUM 4.2 mmol/L (3.5-5.1)
--- NOTE | 2019-10-22 09:37 | PDOC2 ---
MAXIMILIANO MELGOZA PHOTOVOLTAIC TESTING TECHNICIAN 10/22/19 0937: CONSULT Date of Consult Date of Consult DATE: 10/22/19 TIME: 09:30 History of Present Illness Reason for Visit: Underwent Exploratory laparotomy, pancreatic necrosectomy, cholecystostomy tube placement, Gastrostomy placement with jejunal extension, tracheostomy placement (specifically 8 shiley cuffed) in June with Dr Dawson for Severe necrotizing gallstone pancreatitis, increased abdominal pressure, respiratory failure. Long recovery, went to [facility]. Now at home, still on abx. Main reason for admission to hospital was 8 watery episodes of diarrhea yesterday. Abdomen feels full, low appetite but that has been an ongoing problem. 50 lbs weight loss since May. No significant abdominal pain Past Medical History GI: GERD Hepatobiliary: Other Past Surgical History Past Surgical History: Other (see HPI) Family History Family History: Other (noncontributory to current illness ) Social History No ALCOHOL: social Drugs: None Lives: with Family Current Problem List Problem List Problems Medical Problems: (1) Pneumonia Status: Acute (2) Sepsis Status: Acute Current Medications Current Medications Current Medications Sodium Chloride 1,000 ml @ 1,000 mls/hr 1X ONCE IV Last administered on 10/21/19at 18:18; Start 10/21/19 at 18:00; Stop 10/21/19 at 18:59; Status DC Levofloxacin/ Dextrose 150 ml @ 100 mls/hr 1X ONCE IV Last administered on 10/21/19at 19:58; Start 10/21/19 at 19:45; Stop 10/21/19 at 21:14; Status DC Ondansetron HCl (Zofran) 4 mg PRN Q8HRS PRN IV NAUSEA/VOMITING; Start 10/21/19 at 20:30; Stop 10/22/19 at 07:58; Status DC Morphine Sulfate (Morphine Sulfate) 2 mg PRN Q2HR PRN IV PAIN; Start 10/21/19 at 20:30; Stop 10/22/19 at 07:58; Status DC Oxycodone HCl (Roxicodone) 15 mg PRN Q6HRS PRN PO PAIN Last administered on 10/21at 05:46; Start 10/21/19 at 21:00 Sodium Chloride 1,000 ml @ 1,000 mls/hr 1X ONCE IV Last administered on 10/21/19at 22:18; Start 10/21/19 at 22:30; Stop 10/21/19 at 23:29; Status DC Alprazolam (Xanax) 0.5 mg 1X ONCE PO Last administered on 10/21/19at 23:22; Start 10/21/19 at 23:30; Stop 10/21/19 at 23:31; Status DC Trazodone HCl (Desyrel) 50 mg 1X ONCE PO Last administered on 10/21/19at 23:22; Start 10/21/19 at 23:30; Stop 10/21/19 at 23:31; Status DC Morphine Sulfate (Morphine Sulfate) 2 mg PRN Q4HRS PRN IV MODERATE PAIN; Start 10/22/19 at 08:00 Ondansetron HCl (Zofran) 4 mg PRN Q4HRS PRN IV NAUSEA/VOMITING; Start 10/22/19 at 08:00 Acetaminophen (Tylenol) 500 mg PRN Q6HRS PRN PO pain or fever Last administered on 10/22/19at 09:22; Start 10/22/19 at 08:00 Buspirone HCl (Buspar) 10 mg BIDACBL PO ; Start 10/22/19 at 11:30 Ferrous Sulfate (Feosol) 325 mg BIDWMEALS PO Last administered on 10/22/19at 09:19; Start 10/22/19 at 09:00 Gabapentin (Neurontin) 100 mg TID PO Last administered on 10/22/19at 09:18; Start 10/22/19 at 09:00 Pantoprazole Sodium (Protonix) 40 mg DAILYAC PO Last administered on 10/22/19at 09:19; Start 10/22/19 at 08:15 Trazodone HCl (Desyrel) 50 mg QHS PO ; Start 10/22/19 at 21:00 Insulin Glargine (Lantus Syringe) 5 unit QHS SQ ; Start 10/22/19 at 21:00 Non-Formulary Medication (Melatonin ) 2 tab QHS PO ; Start 10/22/19 at 21:00; Status UNV Insulin Human Lispro (HumaLOG) 0-7 UNITS TIDACHC SQ ; Start 10/22/19 at 11:30 Dextrose (Dextrose 50%-Water Syringe) 12.5 gm PRN Q15MIN PRN IV SEE COMMENTS; Start 10/22/19 at 08:00 Active Scripts Active Reported Buspirone Hcl 10 Mg Tablet 1 Tab PO BIDACBL Alprazolam 0.5 Mg Tablet 1 Tab PO HS Acetaminophen 500 Mg Tablet 1 Tab PO PRN Q6HRS PRN 15 Days Levemir (Insulin Detemir) 100 Unit/1 Ml Vial 5 Unit SQ DAILY PRN 5 units daily in morning if bs greater than 200. Oxycodone Hcl Immed.release (Oxycodone Hcl) 15 Mg Tablet 15 Mg PO PRN Q6HRS PRN Ferrous Sulfate 325 Mg Tablet 65 Mg PO BID Metformin Hcl 500 Mg Tablet 500 Mg PO BIDWMEALS Amlodipine Besylate 10 Mg Tablet 10 Mg PO DAILY Pantoprazole Sodium (Pantoprazole Sodium) 40 Mg Tablet.dr 40 Mg PO DAILYAC Trazodone Hcl 50 Mg Tablet 1 Tab PO QHS Furosemide 20 Mg Tablet 1 Tab PO DAILY Gabapentin (Gabapentin) 100 Mg Capsule 100 Mg PO TID Metoprolol Tartrate 100 Mg Tablet 1 Tab PO BID Melatonin 3 Mg Tablet 2 Tab PO QHS Allergies Allergies: Coded Allergies: No Known Drug Allergies (Unverified , 01/28/16) ROS General: YES: Appetite (loss); No: Chills PSYCHOLOGICAL ROS: No: Anxiety, Depression Eyes: No Blurry vision, No Double vision HEENT: No: Heacaches, Sore Throat Hematological and Lymphatic: No: Bleeding Problems, Blood Clots Respiratory: No: Cough, Shortness of breath Cardiovascular: No Chest Pain, No Palpitations Gastrointestinal: Yes Other (see hpi) Genitourinary: No Dysuria, No Retention Musculoskeletal: No Joint Pain, No Muscle Pain Neurological: No Impaired Coord/balance, No Numbness/Tingling Skin: No Pruritus, No Rash Physical Exam General: Alert, Oriented X3, Cooperative HEENT: Atraumatic, PERRLA Lungs: Clear to auscultation, Normal air movement Heart: Regular rate, Normal S1, Normal S2 Abdomen: Soft, Other (g/j tube in place, nontender ) Extremities: No clubbing, No cyanosis Skin: No rashes, No breakdown Neuro: Normal speech, Sensation intact Psych/Mental Status: Mental status NL, Mood NL MUSCULOSKELETAL: No deformity, No swelling Vitals VITALS Vital Signs Date Time Temp Pulse Resp B/P (MAP) Pulse Ox O2 Delivery O2 Flow Rate FiO2 10/22/19 08:00 Room Air 10/22/19 07:00 98.0 96 18 89/54 (66) 96 98.0 Labs Labs Laboratory Tests Test 10/21/19 17:36 10/21/19 21:25 10/22/19 08:35 10/22/19 08:45 White Blood Count 19.4 x10^3/uL (4.0-11.0) 18.7 x10^3/uL (4.0-11.0) Red Blood Count 3.46 x10^6/uL (4.30-5.70) 3.46 x10^6/uL (4.30-5.70) Hemoglobin 8.6 g/dL (13.0-17.5) 8.6 g/dL (13.0-17.5) Hematocrit 27.4 % (39.0-53.0) 27.1 % (39.0-53.0) Mean Corpuscular Volume 79 fL (79-100) 78 fL (79-100) Mean Corpuscular Hemoglobin 25 pg (25-35) 25 pg (25-35) Mean Corpuscular Hemoglobin Concent 31 g/dL (31-37) 32 g/dL (31-37) Red Cell Distribution Width 21.2 % (11.5-14.5) 21.8 % (11.5-14.5) Platelet Count 456 x10^3/uL (140-400) 380 x10^3/uL (140-400) Neutrophils (%) (Auto) 87 % (31-73) 91 % (31-73) Lymphocytes (%) (Auto) 4 % (24-48) 3 % (24-48) Monocytes (%) (Auto) 9 % (0-9) 6 % (0-9) Eosinophils (%) (Auto) 0 % (0-3) 0 % (0-3) Basophils (%) (Auto) 0 % (0-3) 1 % (0-3) Neutrophils # (Auto) 16.9 x10^3/uL (1.8-7.7) 17.0 x10^3/uL (1.8-7.7) Lymphocytes # (Auto) 0.9 x10^3/uL (1.0-4.8) 0.5 x10^3/uL (1.0-4.8) Monocytes # (Auto) 1.7 x10^3/uL (0.0-1.1) 1.1 x10^3/uL (0.0-1.1) Eosinophils # (Auto) 0.0 x10^3/uL (0.0-0.7) 0.0 x10^3/uL (0.0-0.7) Basophils # (Auto) 0.0 x10^3/uL (0.0-0.2) 0.1 x10^3/uL (0.0-0.2) Segmented Neutrophils % 63 % (35-66) Band Neutrophils % 24 % (0-9) Lymphocytes % 5 % (24-48) Monocytes % 8 % (0-10) Nucleated Red Blood Cells 1 Toxic Granulation Marked Platelet Estimate Increased (ADEQUATE) Hypochromasia Mod Anisocytosis Mod Sodium Level 131 mmol/L (136-145) Potassium Level 4.6 mmol/L (3.5-5.1) Chloride Level 97 mmol/L (98-107) Carbon Dioxide Level 27 mmol/L (21-32) Anion Gap 7 (6-14) Blood Urea Nitrogen 17 mg/dL (8-26) Creatinine 0.9 mg/dL (0.7-1.3) Estimated GFR (Cockcroft-Gault) 108.5 BUN/Creatinine Ratio 19 (6-20) Glucose Level 130 mg/dL (70-99) Lactic Acid Level 2.2 mmol/L (0.4-2.0) 1.4 mmol/L (0.4-2.0) Calcium Level 7.9 mg/dL (8.5-10.1) Total Bilirubin 0.7 mg/dL (0.2-1.0) Aspartate Amino Transf (AST/SGOT) 26 U/L (15-37) Alanine Aminotransferase (ALT/SGPT) 23 U/L (16-63) Alkaline Phosphatase 283 U/L (46-116) Total Protein 6.7 g/dL (6.4-8.2) Albumin 1.8 g/dL (3.4-5.0) Albumin/Globulin Ratio 0.4 (1.0-1.7) Lipase 76 U/L (73-393) Glucose (Fingerstick) 105 mg/dL (70-99) Laboratory Tests Test 10/21/19 17:36 10/21/19 21:25 10/22/19 08:35 10/22/19 08:45 White Blood Count 19.4 x10^3/uL (4.0-11.0) 18.7 x10^3/uL (4.0-11.0) Red Blood Count 3.46 x10^6/uL (4.30-5.70) 3.46 x10^6/uL (4.30-5.70) Hemoglobin 8.6 g/dL (13.0-17.5) 8.6 g/dL (13.0-17.5) Hematocrit 27.4 % (39.0-53.0) 27.1 % (39.0-53.0) Mean Corpuscular Volume 79 fL (79-100) 78 fL (79-100) Mean Corpuscular Hemoglobin 25 pg (25-35) 25 pg (25-35) Mean Corpuscular Hemoglobin Concent 31 g/dL (31-37) 32 g/dL (31-37) Red Cell Distribution Width 21.2 % (11.5-14.5) 21.8 % (11.5-14.5) Platelet Count 456 x10^3/uL (140-400) 380 x10^3/uL (140-400) Neutrophils (%) (Auto) 87 % (31-73) 91 % (31-73) Lymphocytes (%) (Auto) 4 % (24-48) 3 % (24-48) Monocytes (%) (Auto) 9 % (0-9) 6 % (0-9) Eosinophils (%) (Auto) 0 % (0-3) 0 % (0-3) Basophils (%) (Auto) 0 % (0-3) 1 % (0-3) Neutrophils # (Auto) 16.9 x10^3/uL (1.8-7.7) 17.0 x10^3/uL (1.8-7.7) Lymphocytes # (Auto) 0.9 x10^3/uL (1.0-4.8) 0.5 x10^3/uL (1.0-4.8) Monocytes # (Auto) 1.7 x10^3/uL (0.0-1.1) 1.1 x10^3/uL (0.0-1.1) Eosinophils # (Auto) 0.0 x10^3/uL (0.0-0.7) 0.0 x10^3/uL (0.0-0.7) Basophils # (Auto) 0.0 x10^3/uL (0.0-0.2) 0.1 x10^3/uL (0.0-0.2) Segmented Neutrophils % 63 % (35-66) Band Neutrophils % 24 % (0-9) Lymphocytes % 5 % (24-48) Monocytes % 8 % (0-10) Nucleated Red Blood Cells 1 Toxic Granulation Marked Platelet Estimate Increased (ADEQUATE) Hypochromasia Mod Anisocytosis Mod Sodium Level 131 mmol/L (136-145) Potassium Level 4.6 mmol/L (3.5-5.1) Chloride Level 97 mmol/L (98-107) Carbon Dioxide Level 27 mmol/L (21-32) Anion Gap 7 (6-14) Blood Urea Nitrogen 17 mg/dL (8-26) Creatinine 0.9 mg/dL (0.7-1.3) Estimated GFR (Cockcroft-Gault) 108.5 BUN/Creatinine Ratio 19 (6-20) Glucose Level 130 mg/dL (70-99) Lactic Acid Level 2.2 mmol/L (0.4-2.0) 1.4 mmol/L (0.4-2.0) Calcium Level 7.9 mg/dL (8.5-10.1) Total Bilirubin 0.7 mg/dL (0.2-1.0) Aspartate Amino Transf (AST/SGOT) 26 U/L (15-37) Alanine Aminotransferase (ALT/SGPT) 23 U/L (16-63) Alkaline Phosphatase 283 U/L (46-116) Total Protein 6.7 g/dL (6.4-8.2) Albumin 1.8 g/dL (3.4-5.0) Albumin/Globulin Ratio 0.4 (1.0-1.7) Lipase 76 U/L (73-393) Glucose (Fingerstick) 105 mg/dL (70-99) Assessment/Plan Assessment/Plan diarrhea x 1 day--none currently wbc 19 on admission, afebrile ? CT--patient does not like going into ct space c diff if another stool will review with KARLA Montano MD 10/22/19 7965: CONSULT Assessment/Plan Assessment/Plan Pt seen and examined. Agree with Ms. Melgoza's note Pt with c/o diarrhea and bloating abd soft, distended, drainage from cholecystostomy site pt with severe malnutrition will start tube feeds via J-tube. Eventual gallbladder out Recent IR study demonstrated cystduodenostomy Thanks for consult! MAXIMILIANO MELGOZA APRN Oct 22, 2019 09:37 KARLA DAWSON MD Oct 22, 2019 15:55
[2019-10-22] MEDS ORDERED: IV NORMAL SALINE 1000ML BAG 1,000 ML IV ONE (10:00)
[2019-10-22 10:23] LABS: BILIRUBIN,URINE SMALL (NEG); CLARITY,URINE CLEAR; COLOR,URINE AMBER; NITRITE,URINE NEGATIVE (NEG); PROTEIN,URINE 30 mg/dL (NEG-TRACE); UROBILINOGEN,URINE 0.2 mg/dL (0.2 mg/dL)
[2019-10-22 10:38] LABS: BACTERIA,URINE 0 /HPF (0-FEW); RBC,URINE >40 /HPF (0-2); WBC,URINE 0 /HPF (0-4)
[2019-10-22 10:39] LABS: SQUAMOUS EPITHELIAL CELL,UR OCC /LPF
--- NOTE | 2019-10-22 10:46 | NUR ---
SS following for discharge planning. SS reviewed pt chart and discussed with pt RN. Pt is from home with spouse and is currently on room air. PT/OT ordered. SS will continue to follow for discharge planning.
[2019-10-22 11:00] VITALS: BP 91/55
[2019-10-22] MEDS ORDERED: IOHEXOL 300 MG/ML 100ML VIAL. IV ONE (11:00)
[2019-10-22] MEDS ORDERED: IOHEXOL 240 MG/ML 50ML VIAL. PO ONE (11:00)
[2019-10-22] MEDS ORDERED: CONTRAST GIVEN. MC PRN (11:15)
[2019-10-22] MEDS: ENOXAPARIN 40 MG/0.4 ML SYRINGE. SQ SCH ×2 (11:17→12:00)
[2019-10-22] MEDS: busPIRone 10 MG TABLET. PO SCH (11:17)
--- NOTE | 2019-10-22 11:29 | PDOC2 ---
GI CONSULT Reason For Consult: diarrhea HPI: HPI: 49 y/o male who we have seen in the past. H/o necrotizing gallstone pancreatitis w/ [facility]F s/p pancreatic necrosectomy, cholecystostomy tube placement, G-tube placement w/ jejunal extension, tracheostomy placement w/ Dr. Dawson on 06/22/19. Extended hospitalization/recovery. Has been at home - chart indicates still on antibiotics but he tells me no but says his would know. Has had a couple days of diarrhea - can't remember when the first occurred but recurred yesterday. Watery stools "all day long." No stools today. Feels full after eating small amounts, some abdominal discomfort. Denies bleeding. From past encounter: h/o heartburn, usually takes Pepcid QD w/ improvement. No previous EGD or colonoscopy. PMH: PMH: per HPI FH: Family History: No pertinent hx (no GI cancers) Social History: Smoke: <1 pack per day (occasional cigar) ALCOHOL: social Drugs: None ROS: GEN: Denies fevers, chills, sweats HEENT: Denies blurred vision, sore throat CV: Denies chest pain RESP: Denies shortness of air, cough GI: Per HPI : Denies hematuria, dysuria ENDO: +weight loss NEURO: Denies confusion, dizziness MSK: +weakness SKIN: Denies jaundice, pruritus Vitals: Vitals: Vital Signs Date Time Temp Pulse Resp B/P (MAP) Pulse Ox O2 Delivery O2 Flow Rate FiO2 10/22/19 08:00 Room Air 10/22/19 07:00 98.0 96 18 89/54 (66) 96 98.0 Labs: Labs: Laboratory Tests Test 10/21/19 17:36 10/21/19 21:25 10/22/19 08:35 10/22/19 08:45 White Blood Count 19.4 x10^3/uL (4.0-11.0) 18.7 x10^3/uL (4.0-11.0) Red Blood Count 3.46 x10^6/uL (4.30-5.70) 3.46 x10^6/uL (4.30-5.70) Hemoglobin 8.6 g/dL (13.0-17.5) 8.6 g/dL (13.0-17.5) Hematocrit 27.4 % (39.0-53.0) 27.1 % (39.0-53.0) Mean Corpuscular Volume 79 fL (79-100) 78 fL (79-100) Mean Corpuscular Hemoglobin 25 pg (25-35) 25 pg (25-35) Mean Corpuscular Hemoglobin Concent 31 g/dL (31-37) 32 g/dL (31-37) Red Cell Distribution Width 21.2 % (11.5-14.5) 21.8 % (11.5-14.5) Platelet Count 456 x10^3/uL (140-400) 380 x10^3/uL (140-400) Neutrophils (%) (Auto) 87 % (31-73) 91 % (31-73) Lymphocytes (%) (Auto) 4 % (24-48) 3 % (24-48) Monocytes (%) (Auto) 9 % (0-9) 6 % (0-9) Eosinophils (%) (Auto) 0 % (0-3) 0 % (0-3) Basophils (%) (Auto) 0 % (0-3) 1 % (0-3) Neutrophils # (Auto) 16.9 x10^3/uL (1.8-7.7) 17.0 x10^3/uL (1.8-7.7) Lymphocytes # (Auto) 0.9 x10^3/uL (1.0-4.8) 0.5 x10^3/uL (1.0-4.8) Monocytes # (Auto) 1.7 x10^3/uL (0.0-1.1) 1.1 x10^3/uL (0.0-1.1) Eosinophils # (Auto) 0.0 x10^3/uL (0.0-0.7) 0.0 x10^3/uL (0.0-0.7) Basophils # (Auto) 0.0 x10^3/uL (0.0-0.2) 0.1 x10^3/uL (0.0-0.2) Segmented Neutrophils % 63 % (35-66) Band Neutrophils % 24 % (0-9) Lymphocytes % 5 % (24-48) Monocytes % 8 % (0-10) Nucleated Red Blood Cells 1 Toxic Granulation Marked Platelet Estimate Increased (ADEQUATE) Hypochromasia Mod Anisocytosis Mod Sodium Level 131 mmol/L (136-145) 133 mmol/L (136-145) Potassium Level 4.6 mmol/L (3.5-5.1) 4.2 mmol/L (3.5-5.1) Chloride Level 97 mmol/L (98-107) 100 mmol/L (98-107) Carbon Dioxide Level 27 mmol/L (21-32) 27 mmol/L (21-32) Anion Gap 7 (6-14) 6 (6-14) Blood Urea Nitrogen 17 mg/dL (8-26) 14 mg/dL (8-26) Creatinine 0.9 mg/dL (0.7-1.3) 0.9 mg/dL (0.7-1.3) Estimated GFR (Cockcroft-Gault) 108.5 108.5 BUN/Creatinine Ratio 19 (6-20) Glucose Level 130 mg/dL (70-99) 117 mg/dL (70-99) Lactic Acid Level 2.2 mmol/L (0.4-2.0) 1.4 mmol/L (0.4-2.0) Calcium Level 7.9 mg/dL (8.5-10.1) 7.6 mg/dL (8.5-10.1) Total Bilirubin 0.7 mg/dL (0.2-1.0) Aspartate Amino Transf (AST/SGOT) 26 U/L (15-37) Alanine Aminotransferase (ALT/SGPT) 23 U/L (16-63) Alkaline Phosphatase 283 U/L (46-116) Total Protein 6.7 g/dL (6.4-8.2) Albumin 1.8 g/dL (3.4-5.0) Albumin/Globulin Ratio 0.4 (1.0-1.7) Lipase 76 U/L (73-393) Glucose (Fingerstick) 105 mg/dL (70-99) Iron Level 25 ug/dL (65-175) Total Iron Binding Capacity 76 ug/dL (250-450) Iron Saturation 33 % (15-34) RM-Koa-P-Type Natriuretic Peptide 834 pg/mL (0-124) Thyroid Stimulating Hormone (TSH) 2.029 uIU/mL (0.358-3.74) Test 10/22/19 10:10 Urine Collection Type Unknown Urine Color Demi Urine Clarity Clear Urine pH 6.0 (<5.0-8.0) Urine Specific Kempner 1.020 (1.000-1.030) Urine Protein 30 mg/dL (NEG-TRACE) Urine Glucose (UA) Negative mg/dL (NEG) Urine Ketones (Stick) Negative mg/dL (NEG) Urine Blood Large (NEG) Urine Nitrite Negative (NEG) Urine Bilirubin Small (NEG) Urine Urobilinogen Dipstick 0.2 mg/dL (0.2 mg/dL) Urine Leukocyte Esterase Negative (NEG) Urine RBC >40 /HPF (0-2) Urine WBC 0 /HPF (0-4) Urine Squamous Epithelial Cells Occ /LPF Urine Bacteria 0 /HPF (0-FEW) Allergies: Coded Allergies: No Known Drug Allergies (Unverified , 01/28/16) Medications: Current Medications Medications (Trade) Dose Ordered Sig/Jesse Route PRN Reason Start Time Stop Time Status Last Admin Dose Admin Sodium Chloride 1,000 ml @ 1,000 mls/hr 1X ONCE IV 10/21/19 18:00 10/21/19 18:59 DC 10/21/19 18:18 Levofloxacin/ Dextrose 150 ml @ 100 mls/hr 1X ONCE IV 10/21/19 19:45 10/21/19 21:14 DC 10/21/19 19:58 Oxycodone HCl (Roxicodone) 15 mg PRN Q6HRS PRN PO PAIN 10/21/19 21:00 10/22/19 05:46 Sodium Chloride 1,000 ml @ 1,000 mls/hr 1X ONCE IV 10/21/19 22:30 10/21/19 23:29 DC 10/21/19 22:18 Alprazolam (Xanax) 0.5 mg 1X ONCE PO 10/21/19 23:30 10/21/19 23:31 DC 10/21/19 23:22 Trazodone HCl (Desyrel) 50 mg 1X ONCE PO 10/21/19 23:30 10/21/19 23:31 DC 10/21/19 23:22 Acetaminophen (Tylenol) 500 mg PRN Q6HRS PRN PO pain or fever 10/22/19 08:00 10/22/19 09:22 Ferrous Sulfate (Feosol) 325 mg BIDWMEALS PO 10/22/19 09:00 10/22/19 09:19 Gabapentin (Neurontin) 100 mg TID PO 10/22/19 09:00 10/22/19 09:18 Pantoprazole Sodium (Protonix) 40 mg DAILYAC PO 10/22/19 08:15 10/22/19 09:19 Imaging: Imaging: CXR IMPRESSION: 1. Left lower lobe atelectasis or infiltrate. 2. Small left effusion. RUQ US IMPRESSION: 1. Degraded evaluation due to overlying structures and bowel gas, as described. 2. Increased hepatic echotexture, may indicate steatosis. CT C/A/P ordered PE: GEN: chronically ill HEENT: Atraumatic, PERRL LUNGS: diminished anteriorly HEART: RRR ABD: NABS, some distention, periumbilical discomfort and below - non-specific, G tube EXTREMITY: No edema SKIN: No rashes, no jaundice NEURO/PSYCH: A & O 3 A/P: A/P: H/o gallstone pancreatitis w/ MOSF s/p pancreatic necrosectomy 06/22/19 Leukocytosis Diarrhea, early satiety, abdominal discomfort CRC screen - none -- Await CT and C Diff. PAXTON ALEXANDER Oct 22, 2019 11:29
[2019-10-22] MEDS: INSULIN LISPRO 300 UNITS/3 ML VIAL. SQ SCH ×3 (11:30→21:00)
--- NOTE | 2019-10-22 13:43 | PDOC ---
PULMONARY PROGRESS NOTES Vitals Vital Signs Date Time Temp Pulse Resp B/P (MAP) Pulse Ox O2 Delivery O2 Flow Rate FiO2 10/22/19 11:00 97.5 100 18 91/55 (67) 96 Room Air 97.5 Lungs: Clear Cardiovascular: S1, S2 Abdomen: Soft Extremities: Other Labs Laboratory Tests Test 10/21/19 17:36 10/21/19 21:25 10/22/19 08:35 10/22/19 08:45 White Blood Count 19.4 x10^3/uL (4.0-11.0) 18.7 x10^3/uL (4.0-11.0) Red Blood Count 3.46 x10^6/uL (4.30-5.70) 3.46 x10^6/uL (4.30-5.70) Hemoglobin 8.6 g/dL (13.0-17.5) 8.6 g/dL (13.0-17.5) Hematocrit 27.4 % (39.0-53.0) 27.1 % (39.0-53.0) Mean Corpuscular Volume 79 fL (79-100) 78 fL (79-100) Mean Corpuscular Hemoglobin 25 pg (25-35) 25 pg (25-35) Mean Corpuscular Hemoglobin Concent 31 g/dL (31-37) 32 g/dL (31-37) Red Cell Distribution Width 21.2 % (11.5-14.5) 21.8 % (11.5-14.5) Platelet Count 456 x10^3/uL (140-400) 380 x10^3/uL (140-400) Neutrophils (%) (Auto) 87 % (31-73) 91 % (31-73) Lymphocytes (%) (Auto) 4 % (24-48) 3 % (24-48) Monocytes (%) (Auto) 9 % (0-9) 6 % (0-9) Eosinophils (%) (Auto) 0 % (0-3) 0 % (0-3) Basophils (%) (Auto) 0 % (0-3) 1 % (0-3) Neutrophils # (Auto) 16.9 x10^3/uL (1.8-7.7) 17.0 x10^3/uL (1.8-7.7) Lymphocytes # (Auto) 0.9 x10^3/uL (1.0-4.8) 0.5 x10^3/uL (1.0-4.8) Monocytes # (Auto) 1.7 x10^3/uL (0.0-1.1) 1.1 x10^3/uL (0.0-1.1) Eosinophils # (Auto) 0.0 x10^3/uL (0.0-0.7) 0.0 x10^3/uL (0.0-0.7) Basophils # (Auto) 0.0 x10^3/uL (0.0-0.2) 0.1 x10^3/uL (0.0-0.2) Segmented Neutrophils % 63 % (35-66) Band Neutrophils % 24 % (0-9) Lymphocytes % 5 % (24-48) Monocytes % 8 % (0-10) Nucleated Red Blood Cells 1 Toxic Granulation Marked Platelet Estimate Increased (ADEQUATE) Hypochromasia Mod Anisocytosis Mod Sodium Level 131 mmol/L (136-145) 133 mmol/L (136-145) Potassium Level 4.6 mmol/L (3.5-5.1) 4.2 mmol/L (3.5-5.1) Chloride Level 97 mmol/L (98-107) 100 mmol/L (98-107) Carbon Dioxide Level 27 mmol/L (21-32) 27 mmol/L (21-32) Anion Gap 7 (6-14) 6 (6-14) Blood Urea Nitrogen 17 mg/dL (8-26) 14 mg/dL (8-26) Creatinine 0.9 mg/dL (0.7-1.3) 0.9 mg/dL (0.7-1.3) Estimated GFR (Cockcroft-Gault) 108.5 108.5 BUN/Creatinine Ratio 19 (6-20) Glucose Level 130 mg/dL (70-99) 117 mg/dL (70-99) Lactic Acid Level 2.2 mmol/L (0.4-2.0) 1.4 mmol/L (0.4-2.0) Calcium Level 7.9 mg/dL (8.5-10.1) 7.6 mg/dL (8.5-10.1) Total Bilirubin 0.7 mg/dL (0.2-1.0) Aspartate Amino Transf (AST/SGOT) 26 U/L (15-37) Alanine Aminotransferase (ALT/SGPT) 23 U/L (16-63) Alkaline Phosphatase 283 U/L (46-116) Total Protein 6.7 g/dL (6.4-8.2) Albumin 1.8 g/dL (3.4-5.0) Albumin/Globulin Ratio 0.4 (1.0-1.7) Lipase 76 U/L (73-393) Glucose (Fingerstick) 105 mg/dL (70-99) Iron Level 25 ug/dL (65-175) Total Iron Binding Capacity 76 ug/dL (250-450) Iron Saturation 33 % (15-34) [id number]-Type Natriuretic Peptide 834 pg/mL (0-124) Procalcitonin 0.33 ng/mL (0.00-0.10) Thyroid Stimulating Hormone (TSH) 2.029 uIU/mL (0.358-3.74) Cortisol AM Sample 29.4 ug/dL (4.3-22.4) Test 10/22/19 10:10 10/22/19 11:43 Urine Collection Type Unknown Urine Color Demi Urine Clarity Clear Urine pH 6.0 (<5.0-8.0) Urine Specific Friant 1.020 (1.000-1.030) Urine Protein 30 mg/dL (NEG-TRACE) Urine Glucose (UA) Negative mg/dL (NEG) Urine Ketones (Stick) Negative mg/dL (NEG) Urine Blood Large (NEG) Urine Nitrite Negative (NEG) Urine Bilirubin Small (NEG) Urine Urobilinogen Dipstick 0.2 mg/dL (0.2 mg/dL) Urine Leukocyte Esterase Negative (NEG) Urine RBC >40 /HPF (0-2) Urine WBC 0 /HPF (0-4) Urine Squamous Epithelial Cells Occ /LPF Urine Bacteria 0 /HPF (0-FEW) Glucose (Fingerstick) 134 mg/dL (70-99) Laboratory Tests Test 10/21/19 17:36 10/21/19 21:25 10/22/19 08:35 10/22/19 08:45 White Blood Count 19.4 x10^3/uL (4.0-11.0) 18.7 x10^3/uL (4.0-11.0) Red Blood Count 3.46 x10^6/uL (4.30-5.70) 3.46 x10^6/uL (4.30-5.70) Hemoglobin 8.6 g/dL (13.0-17.5) 8.6 g/dL (13.0-17.5) Hematocrit 27.4 % (39.0-53.0) 27.1 % (39.0-53.0) Mean Corpuscular Volume 79 fL (79-100) 78 fL (79-100) Mean Corpuscular Hemoglobin 25 pg (25-35) 25 pg (25-35) Mean Corpuscular Hemoglobin Concent 31 g/dL (31-37) 32 g/dL (31-37) Red Cell Distribution Width 21.2 % (11.5-14.5) 21.8 % (11.5-14.5) Platelet Count 456 x10^3/uL (140-400) 380 x10^3/uL (140-400) Neutrophils (%) (Auto) 87 % (31-73) 91 % (31-73) Lymphocytes (%) (Auto) 4 % (24-48) 3 % (24-48) Monocytes (%) (Auto) 9 % (0-9) 6 % (0-9) Eosinophils (%) (Auto) 0 % (0-3) 0 % (0-3) Basophils (%) (Auto) 0 % (0-3) 1 % (0-3) Neutrophils # (Auto) 16.9 x10^3/uL (1.8-7.7) 17.0 x10^3/uL (1.8-7.7) Lymphocytes # (Auto) 0.9 x10^3/uL (1.0-4.8) 0.5 x10^3/uL (1.0-4.8) Monocytes # (Auto) 1.7 x10^3/uL (0.0-1.1) 1.1 x10^3/uL (0.0-1.1) Eosinophils # (Auto) 0.0 x10^3/uL (0.0-0.7) 0.0 x10^3/uL (0.0-0.7) Basophils # (Auto) 0.0 x10^3/uL (0.0-0.2) 0.1 x10^3/uL (0.0-0.2) Segmented Neutrophils % 63 % (35-66) Band Neutrophils % 24 % (0-9) Lymphocytes % 5 % (24-48) Monocytes % 8 % (0-10) Nucleated Red Blood Cells 1 Toxic Granulation Marked Platelet Estimate Increased (ADEQUATE) Hypochromasia Mod Anisocytosis Mod Sodium Level 131 mmol/L (136-145) 133 mmol/L (136-145) Potassium Level 4.6 mmol/L (3.5-5.1) 4.2 mmol/L (3.5-5.1) Chloride Level 97 mmol/L (98-107) 100 mmol/L (98-107) Carbon Dioxide Level 27 mmol/L (21-32) 27 mmol/L (21-32) Anion Gap 7 (6-14) 6 (6-14) Blood Urea Nitrogen 17 mg/dL (8-26) 14 mg/dL (8-26) Creatinine 0.9 mg/dL (0.7-1.3) 0.9 mg/dL (0.7-1.3) Estimated GFR (Cockcroft-Gault) 108.5 108.5 BUN/Creatinine Ratio 19 (6-20) Glucose Level 130 mg/dL (70-99) 117 mg/dL (70-99) Lactic Acid Level 2.2 mmol/L (0.4-2.0) 1.4 mmol/L (0.4-2.0) Calcium Level 7.9 mg/dL (8.5-10.1) 7.6 mg/dL (8.5-10.1) Total Bilirubin 0.7 mg/dL (0.2-1.0) Aspartate Amino Transf (AST/SGOT) 26 U/L (15-37) Alanine Aminotransferase (ALT/SGPT) 23 U/L (16-63) Alkaline Phosphatase 283 U/L (46-116) Total Protein 6.7 g/dL (6.4-8.2) Albumin 1.8 g/dL (3.4-5.0) Albumin/Globulin Ratio 0.4 (1.0-1.7) Lipase 76 U/L (73-393) Glucose (Fingerstick) 105 mg/dL (70-99) Iron Level 25 ug/dL (65-175) Total Iron Binding Capacity 76 ug/dL (250-450) Iron Saturation 33 % (15-34) KB-[id number]-[id number]-Type Natriuretic Peptide 834 pg/mL (0-124) Procalcitonin 0.33 ng/mL (0.00-0.10) Thyroid Stimulating Hormone (TSH) 2.029 uIU/mL (0.358-3.74) Cortisol AM Sample 29.4 ug/dL (4.3-22.4) Test 10/22/19 10:10 10/22/19 11:43 Urine Collection Type Unknown Urine Color Demi Urine Clarity Clear Urine pH 6.0 (<5.0-8.0) Urine Specific Friant 1.020 (1.000-1.030) Urine Protein 30 mg/dL (NEG-TRACE) Urine Glucose (UA) Negative mg/dL (NEG) Urine Ketones (Stick) Negative mg/dL (NEG) Urine Blood Large (NEG) Urine Nitrite Negative (NEG) Urine Bilirubin Small (NEG) Urine Urobilinogen Dipstick 0.2 mg/dL (0.2 mg/dL) Urine Leukocyte Esterase Negative (NEG) Urine RBC >40 /HPF (0-2) Urine WBC 0 /HPF (0-4) Urine Squamous Epithelial Cells Occ /LPF Urine Bacteria 0 /HPF (0-FEW) Glucose (Fingerstick) 134 mg/dL (70-99) Medications Active Scripts Medications Dose Route/Sig Max Daily Dose Days Date Category Dose Instructions Buspirone Hcl 10 Mg Tablet 1 Tab PO BIDACBL 10/21/19 Reported Alprazolam 0.5 Mg Tablet 1 Tab PO HS 10/16/19 Reported Acetaminophen 500 Mg Tablet 1 Tab PO PRN Q6HRS PRN 15 10/16/19 Reported Levemir (Insulin Detemir) 100 Unit/1 Ml Vial 5 Unit SQ DAILY PRN 10/16/19 Reported 5 units daily in morning if bs greater than 200. Oxycodone Hcl Immed.release (Oxycodone Hcl) 15 Mg Tablet 15 Mg PO PRN Q6HRS PRN 10/16/19 Reported Ferrous Sulfate 325 Mg Tablet 65 Mg PO BID 10/16/19 Reported Metformin Hcl 500 Mg Tablet 500 Mg PO BIDWMEALS 10/16/19 Reported Amlodipine Besylate 10 Mg Tablet 10 Mg PO DAILY 10/16/19 Reported Pantoprazole Sodium (Pantoprazole Sodium) 40 Mg Tablet.dr 40 Mg PO DAILYAC 08/15/19 Reported Trazodone Hcl 50 Mg Tablet 1 Tab PO QHS 08/15/19 Reported Furosemide 20 Mg Tablet 1 Tab PO DAILY 08/15/19 Reported Gabapentin (Gabapentin) 100 Mg Capsule 100 Mg PO TID 08/15/19 Reported Metoprolol Tartrate 100 Mg Tablet 1 Tab PO BID 08/15/19 Reported Melatonin 3 Mg Tablet 2 Tab PO QHS 08/15/19 Reported Impression . Full note dictated, obtain CT chest, discussed with DESTINI Abdi MD Oct 22, 2019 13:43
--- NOTE | 2019-10-22 14:12 | RAD ---
Examination: CT CHEST ABD PELVIS W/CONTRAST History: Reason: Left pleural effusion, ?infiltrate and diarrhea with recent pancreatitis / Spl. Instructions: [id number] / History: Comparison/Correlation: 09/11/2019 CT abdomen and pelvis with contrast, 07/11/2019 CT abdomen and pelvis without contrast Findings: Axial images of the chest, abdomen, and pelvis were obtained following IV contrast. Sagittal and coronal reformatted images were provided. Oral contrast was also administered. Axial images of the chest, abdomen, and pelvis were obtained following IV contrast. Sagittal and coronal reformatted images were provided. Left costophrenic sulcus atelectatic consolidation is present. Small left costophrenic sulcus posterior basilar loculated pleural collection is present with adjacent pleural thickening. Calcific granuloma involves the left upper lung field. Right lung field is unremarkable. No enlarged thoracic lymph nodes. Heterogeneous low attenuation of the liver is present in the interval. Portal vein is diminutive. Spleen is unremarkable. Bilateral low-attenuation renal lesions are present and may represent cysts. Adrenal glands are normal. Gallbladder is decompressed. A J-tube is present terminating within left lateral mid abdominal jejunum. Appendix is normal. Moderate quantity of stool is present throughout the colon. No bowel obstruction. Moderate amount of ascites is noted within the abdomen and pelvis. Diffuse necrotic appearance of the pancreas with extensive gas and fluid is again seen. Pancreas measures up to 4.3 cm anteroposterior at the proximal tibial region and up to 5.8 cm at the pancreatic head region. This represents a decrease in size of approximately 1 cm the pancreatic tail region and decrease in size by 2 cm the pancreatic head region. There is an additional collection which extends superiorly between the stomach and spleen to abut the undersurface of the left hemidiaphragm. This collection communicates with the distal pancreatic tail and has a measurement of 6 cm in longitudinal by 5.5 cm transverse by 7.5 cm anteroposterior. There is an irregularly shaped collection with gas and fluid within it. This collection is moderately increased in size compared previous exam. Circumferential wall thickening of the cecum and distal hemicolon is noted. Appendix is unremarkable although evaluation is limited with surrounding ascites. Urinary bladder is nearly completely decompressed with circumferential wall thickening likely relating to the decompressed state. No enlarged abdominal or pelvic lymph nodes. Inferior vena cava is decompressed. Inferior vena cava is decompressed. Bony structures are unremarkable for the patient's age. Impression: Decreased size of the necrotic pancreas. Mildly to moderately increased size of the collection extending from pancreatic tail to the left subdiaphragmatic region. Moderate quantity of ascites. Greater amount of ascites is noted in the interval. Left posterior basilar loculated pleural effusion with adjacent atelectatic consolidation. Considering the pleural thickening evident at the left posterior basilar aspect but the pleural effusion, possible empyema drainage. Diffuse heterogeneous low attenuation of the liver is new in the interval. Portal vein is diminutive. Correlate for underlying inflammatory process. Findings may partly due to fatty infiltration of the liver although the findings are more evident since prior exam. Portal vein is diminutive in size but similar to the prior exam. Colonic wall edema is seen in the interval. Correlate for underlying colitis. No obstruction. Decompressed vena cava. Cardiomegaly with hydration status. PQRS Compliance Statement: One or more of the following individualized dose reduction techniques were utilized for this examination: 1. Automated exposure control 2. Adjustment of the mA and/or kV according to patient size 3. Use of iterative reconstruction technique Electronically signed by: Lakhwinder Dennis MD (10/22/2019 2:09 PM) [id number]
[2019-10-22 15:00] VITALS: BP 86/50
--- NOTE | 2019-10-22 15:37 | CONS ---
DATE OF CONSULTATION: 10/21/2019 ATTENDING PHYSICIAN: Eliseo Gibbs MD REASON FOR CONSULTATION: The patient seen in pulmonary consultation at the request of Dr. Gibbs for abnormal chest x-ray revealing left lower lobe atelectasis, possible infiltrate. HISTORY OF PRESENT ILLNESS: The patient is well known to me from previous hospitalization. He is a 49-year-old with a history of pancreatitis and underwent exploratory laparotomy with pancreatic necrosectomy, gastrostomy tube placement and status post tracheotomy. He was transferred to [facility]. He was decannulated. The patient went to rehabilitation. Eventually went back home. He also has a history of hepatitis B. Returns to the hospital with complaints of right upper quadrant pain and diarrhea. A chest x-ray was obtained, which revealed infiltrate in the left lower base. As a consequence, I was asked to see him in consultation. PAST MEDICAL HISTORY: 1. Respiratory failure secondary to pancreatitis, status post exploratory laparotomy. At that time, he had a gastrostomy tube placement and tracheotomy. He is currently decannulated. 2. Gastroesophageal reflux. 3. History of hepatitis B. PAST SURGICAL HISTORY: Status post pancreatic necrosectomy, cholecystectomy, G-tube placement and tracheotomy. FAMILY HISTORY: Noncontributory. No history of lung disorders. SOCIAL HISTORY: He is not smoking. Occasional use of alcohol. REVIEW OF SYSTEMS: CONSTITUTIONAL: No fever or chills. EYES: No change in visual acuity. HEENT: No nasal congestion or sore throat. PULMONARY: As indicated above. CARDIOVASCULAR: No chest pain. No pressure. GASTROINTESTINAL: As indicated above. GENITOURINARY: No dysuria or frequency. MUSCULOSKELETAL: No localized muscle aches or joint pains. SKIN: No new skin rashes. NEUROLOGIC: No headaches, diplopia, or blurred vision. ALLERGIES: No known drug allergies. PHYSICAL EXAMINATION: VITAL SIGNS: He was on room air saturation 96%. He has been afebrile since admission. HEENT: Eyes: The sclerae were nonicteric. NECK: Jugular venous distention was not elevated. No lymphadenopathy. CHEST: Full expansion. LUNGS: Slight crackles in the left base, otherwise no wheezes. CARDIOVASCULAR: Regular rate and rhythm with S1, S2, no S3. ABDOMEN: Soft, nontender, nondistended. EXTREMITIES: No clubbing, cyanosis, or edema. NEUROLOGIC: The patient was awake, alert, following commands. A detailed neuro exam was not performed. LABORATORY DATA: White count was noted elevated. Sodium was slightly low. BUN and creatinine were noted. Procalcitonin was 0.33. Chest x-ray as indicated above. IMPRESSION: 1. Abnormal x-ray revealing possible atelectasis, infiltrate in the left lower base. 2. Right upper quadrant pain. 3. Leukocytosis. 4. Diarrhea. 5. Status post exploratory laparotomy with pancreatic necrosectomy, cholecystectomy, gastrostomy tube placement, tracheotomy. 6. Hyponatremia. 7. Hepatitis B. 8. Generalized weakness. 9. Small left-sided effusion. PLAN: 1. Case discussed with Dr. Gibbs, clinically I do not think that this is pneumonia. ____ it could be related to previous hospitalization and some residual scarring and/or atelectasis. 2. Initiate empiric antibiotics. 3. Obtain CT chest, abdomen and pelvis. 4. Continue DVT prophylaxis. 5. Advance diet as tolerated. I do appreciate the privilege in sharing in the patient's care. DESTINI MATOS MD DR: ESTEFANIA/justyn JOB#: [id number] / [id number]
[2019-10-22] MEDS ORDERED: PIP/TAZO PER PHARMACY MC PRN (16:00)
[2019-10-22] MEDS: PIPERACILLIN/TAZOBACTAM 3.375 GM in IV NORMAL SALINE 50ML 50 ML IV SCH (16:52)
[2019-10-22 19:00] VITALS: BP 112/70
[2019-10-22] MEDS: PSYLLIUM HUSK (SUGAR FREE) 1 PKT PACKET PO SCH ×2 (21:00→21:07)
[2019-10-22] MEDS ORDERED: NON FORMULARY ITEM (Melatonin 2 TAB) PO SCH (21:00)
[2019-10-22] MEDS: traZODone 50 MG TABLET. PO SCH (21:07)
[2019-10-22] MEDS: INSULIN GLARGINE SYRINGE. SQ SCH (21:13)
[2019-10-22 22:57] VITALS: BP 115/73
[2019-10-23] VITALS (10 sets, daily range): BP systolic 90–106; BP diastolic 56–70
[2019-10-23] MEDS: PIPERACILLIN/TAZOBACTAM 3.375 GM in IV NORMAL SALINE 50ML 50 ML IV SCH ×5 (00:39→17:03)
[2019-10-23 01:08] LABS: HEMOGLOBIN A1C 7.1 % (4.8-5.6)
[2019-10-23] MEDS: oxyCODONE IR 5 MG TABLET PO PRN ×3 (04:02→20:13)
[2019-10-23 05:39] LABS: BASO % 0 % (0-3); EOS % 0 % (0-3); HEMATOCRIT 21.7 % (39.0-53.0); LYMPH % 7 % (24-48); MEAN CORPUSCULAR HEMOGLOBIN 25 pg (25-35); MEAN CORPUSCULAR HGB CONC 32 g/dL (31-37); MEAN CORPUSCULAR VOLUME 78 fL (79-100); MONO # 1.4 x10^3/uL (0.0-1.1); MONO % 10 % (0-9); NEUT # 11.9 x10^3/uL (1.8-7.7); NEUT % 83 % (31-73); PLATELET COUNT 316 x10^3/uL (140-400); RED BLOOD COUNT 2.78 x10^6/uL (4.30-5.70); RED CELL DISTRIBUTION WIDTH 21.5 % (11.5-14.5); WHITE BLOOD COUNT 14.3 x10^3/uL (4.0-11.0)
[2019-10-23 05:49] LABS: CALCIUM 7.3 mg/dL (8.5-10.1); CREATININE 0.9 mg/dL (0.7-1.3); GFR 108.5
[2019-10-23] MEDS: INSULIN LISPRO 300 UNITS/3 ML VIAL. SQ SCH ×4 (07:24→21:00)
[2019-10-23] MEDS: busPIRone 10 MG TABLET. PO SCH ×3 (07:30→11:30)
--- NOTE | 2019-10-23 08:34 | PDOC ---
PROGRESS NOTES Chief Complaint Chief Complaint A/P: RUQ abdominal pain - with recent h/o gallstone pancreatitis, will obtain abdominal US, consult GI and general surgery, well known to both services. CT abdomen/pelvis with significant ascites Leukocytosis - with tachcardia he meets SIRS criteria, given IVF and empiric levaquin for sepsis. I do not see signs of pneumonia. will f/u cultures, check stool Diarrhea - will collect stool, check for c. diff given care home antibiotic exposure as well as high WBC H/o recent Severe pancreatitis s/p ex-lap with pancreatic necrosectomy, cholecystostomy tube placement, gastrostomy tube placement, tracheostomy placement, 5 drains, 1.5L ascites drained - likely gallstone pancreatitis Status post tracheostomy - reversed, recovered Hyponatremia - will restart fluids Severe protein calorie malnutrition - would restart G-tube feeds if ok with general surgery, log manager to see Physician deconditioning - will have PT/OT Hypocalcemia Hepatitis B LLL small effusion - still present. will obtain CT chest/abd/pelvis with contrast Hyperglycemia - cont insulin FEN - General diet PPX - lovenox FULL CODE Dispo - inpatient CVC. Low threshold for ICU transfer. History of Present Illness History of Present Illness Mr Mata is a 49yo M w/ PMHx pancreatitis s/p ex-lap with pancreatic necrose ctomy, gastrostomy tube placement, s/p tracheostomy, hepatitis B who returns to the hospital with his from home c/o diarrhea and RUQ pain that began on 10/21/2019. He was hospitalized for what was ultimately diagnosed as gallstone pancreatitis 06/11/2019-07/22/2019 [underwent hemodialysis for renal failure, stopped 07/04/2019, on 06/22/2019 is s/p ex-lap with pancreatic necrosectomy, cholecystostomy tube placement, gastrostomy tube placement, 5 drains, 1.5L ascites drained, and s/p tracheostomy at that time] and discharged to [facility] for further recovery. He reports he has been recovering at home with his . Has been off antibio tics since 07/31/2019. He has been short of breath but that is no different than it has been for the past 2 months. No cough no recent sick contacts. He is lost 60 pounds since prior to his May hospitalization. Labs: WBC 19.4, Hb 8.6, platelets 456, NA 131, K4.6, BUN 17, CR 0.9, glucose 130, lactic acid 2.2, albumin 1.8, alkaline phosphatase 283, calcium 7.9 lipase normal. CXR interpreted as atelectasis versus left lower lobe infiltrate, was dosed with Levaquin in ED. BP 98/54. Admitted for further care. Overnight still with multiple BM. Had one accident with watery BM this morning. WBC 14.3 Hb 7 platelets 316, NA 133. Discussed with IR his left-sided pleural effusion loculations much smaller the rim is even smaller seems to be healing, but his abdominal ascites is significant and there is drainage. Tolerated tube feeds overnight well his appetite is low this morning. BP improved after decreasing his oxycodone dosing. He would like to stop taking gabapentin Vitals Vitals Vital Signs Date Time Temp Pulse Resp B/P (MAP) Pulse Ox O2 Delivery O2 Flow Rate FiO2 10/23/19 07:00 98.0 111 20 103/67 (79) 96 Room Air 98.0 Physical Exam General: Alert, Oriented X3, Cooperative, mild distress, Other (Cachectic appearing) Heart: Regular rate, Normal S1, Normal S2 Lungs: Clear Abdomen: Normal bowel sounds, Soft, No hepatosplenomegaly, No masses, Other (PEG site clean dry intact, RUQ tender) Extremities: No clubbing, No cyanosis, No edema, Normal pulses, No tenderness/swelling Skin: No rashes, No breakdown, No significant lesion Labs LABS Laboratory Tests Test 10/22/19 08:35 10/22/19 08:45 10/22/19 10:10 10/22/19 11:43 Glucose (Fingerstick) 105 mg/dL (70-99) 134 mg/dL (70-99) White Blood Count 18.7 x10^3/uL (4.0-11.0) Red Blood Count 3.46 x10^6/uL (4.30-5.70) Hemoglobin 8.6 g/dL (13.0-17.5) Hematocrit 27.1 % (39.0-53.0) Mean Corpuscular Volume 78 fL (79-100) Mean Corpuscular Hemoglobin 25 pg (25-35) Mean Corpuscular Hemoglobin Concent 32 g/dL (31-37) Red Cell Distribution Width 21.8 % (11.5-14.5) Platelet Count 380 x10^3/uL (140-400) Neutrophils (%) (Auto) 91 % (31-73) Lymphocytes (%) (Auto) 3 % (24-48) Monocytes (%) (Auto) 6 % (0-9) Eosinophils (%) (Auto) 0 % (0-3) Basophils (%) (Auto) 1 % (0-3) Neutrophils # (Auto) 17.0 x10^3/uL (1.8-7.7) Lymphocytes # (Auto) 0.5 x10^3/uL (1.0-4.8) Monocytes # (Auto) 1.1 x10^3/uL (0.0-1.1) Eosinophils # (Auto) 0.0 x10^3/uL (0.0-0.7) Basophils # (Auto) 0.1 x10^3/uL (0.0-0.2) Sodium Level 133 mmol/L (136-145) Potassium Level 4.2 mmol/L (3.5-5.1) Chloride Level 100 mmol/L (98-107) Carbon Dioxide Level 27 mmol/L (21-32) Anion Gap 6 (6-14) Blood Urea Nitrogen 14 mg/dL (8-26) Creatinine 0.9 mg/dL (0.7-1.3) Estimated GFR (Cockcroft-Gault) 108.5 Glucose Level 117 mg/dL (70-99) Hemoglobin A1c 7.1 % (4.8-5.6) Calcium Level 7.6 mg/dL (8.5-10.1) Iron Level 25 ug/dL (65-175) Total Iron Binding Capacity 76 ug/dL (250-450) Iron Saturation 33 % (15-34) FW-Cpp-S-Type Natriuretic Peptide 834 pg/mL (0-124) Procalcitonin 0.33 ng/mL (0.00-0.10) Thyroid Stimulating Hormone (TSH) 2.029 uIU/mL (0.358-3.74) Cortisol AM Sample 29.4 ug/dL (4.3-22.4) Urine Collection Type Unknown Urine Color Demi Urine Clarity Clear Urine pH 6.0 (<5.0-8.0) Urine Specific [place] 1.020 (1.000-1.030) Urine Protein 30 mg/dL (NEG-TRACE) Urine Glucose (UA) Negative mg/dL (NEG) Urine Ketones (Stick) Negative mg/dL (NEG) Urine Blood Large (NEG) Urine Nitrite Negative (NEG) Urine Bilirubin Small (NEG) Urine Urobilinogen Dipstick 0.2 mg/dL (0.2 mg/dL) Urine Leukocyte Esterase Negative (NEG) Urine RBC >40 /HPF (0-2) Urine WBC 0 /HPF (0-4) Urine Squamous Epithelial Cells Occ /LPF Urine Bacteria 0 /HPF (0-FEW) Test 10/22/19 12:35 10/22/19 17:16 10/22/19 20:49 10/23/19 05:30 Stool Campylobacter PCR Negative (NEGATIVE) Stool E. coli Shiga Toxins (PCR) Negative (NEGATIVE) Stool Salmonella PCR Negative (NEGATIVE) Stool Shigella PCR Negative (NEGATIVE) Glucose (Fingerstick) 114 mg/dL (70-99) 154 mg/dL (70-99) White Blood Count 14.3 x10^3/uL (4.0-11.0) Red Blood Count 2.78 x10^6/uL (4.30-5.70) Hemoglobin 7.0 g/dL (13.0-17.5) Hematocrit 21.7 % (39.0-53.0) Mean Corpuscular Volume 78 fL (79-100) Mean Corpuscular Hemoglobin 25 pg (25-35) Mean Corpuscular Hemoglobin Concent 32 g/dL (31-37) Red Cell Distribution Width 21.5 % (11.5-14.5) Platelet Count 316 x10^3/uL (140-400) Neutrophils (%) (Auto) 83 % (31-73) Lymphocytes (%) (Auto) 7 % (24-48) Monocytes (%) (Auto) 10 % (0-9) Eosinophils (%) (Auto) 0 % (0-3) Basophils (%) (Auto) 0 % (0-3) Neutrophils # (Auto) 11.9 x10^3/uL (1.8-7.7) Lymphocytes # (Auto) 1.0 x10^3/uL (1.0-4.8) Monocytes # (Auto) 1.4 x10^3/uL (0.0-1.1) Eosinophils # (Auto) 0.0 x10^3/uL (0.0-0.7) Basophils # (Auto) 0.0 x10^3/uL (0.0-0.2) Sodium Level 133 mmol/L (136-145) Potassium Level 4.0 mmol/L (3.5-5.1) Chloride Level 101 mmol/L (98-107) Carbon Dioxide Level 25 mmol/L (21-32) Anion Gap 7 (6-14) Blood Urea Nitrogen 11 mg/dL (8-26) Creatinine 0.9 mg/dL (0.7-1.3) Estimated GFR (Cockcroft-Gault) 108.5 Glucose Level 158 mg/dL (70-99) Calcium Level 7.3 mg/dL (8.5-10.1) Test 10/23/19 07:19 Glucose (Fingerstick) 122 mg/dL (70-99) Assessment and Plan Assessmemt and Plan Problems Medical Problems: (1) Pneumonia Status: Acute (2) Sepsis Status: Acute Comment Review of Relevant I have reviewed the following items alexandra (where applicable) has been applied. Labs Laboratory Tests Test 10/21/19 17:36 10/21/19 21:25 10/22/19 08:35 10/22/19 08:45 White Blood Count 19.4 x10^3/uL (4.0-11.0) 18.7 x10^3/uL (4.0-11.0) Red Blood Count 3.46 x10^6/uL (4.30-5.70) 3.46 x10^6/uL (4.30-5.70) Hemoglobin 8.6 g/dL (13.0-17.5) 8.6 g/dL (13.0-17.5) Hematocrit 27.4 % (39.0-53.0) 27.1 % (39.0-53.0) Mean Corpuscular Volume 79 fL (79-100) 78 fL (79-100) Mean Corpuscular Hemoglobin 25 pg (25-35) 25 pg (25-35) Mean Corpuscular Hemoglobin Concent 31 g/dL (31-37) 32 g/dL (31-37) Red Cell Distribution Width 21.2 % (11.5-14.5) 21.8 % (11.5-14.5) Platelet Count 456 x10^3/uL (140-400) 380 x10^3/uL (140-400) Neutrophils (%) (Auto) 87 % (31-73) 91 % (31-73) Lymphocytes (%) (Auto) 4 % (24-48) 3 % (24-48) Monocytes (%) (Auto) 9 % (0-9) 6 % (0-9) Eosinophils (%) (Auto) 0 % (0-3) 0 % (0-3) Basophils (%) (Auto) 0 % (0-3) 1 % (0-3) Neutrophils # (Auto) 16.9 x10^3/uL (1.8-7.7) 17.0 x10^3/uL (1.8-7.7) Lymphocytes # (Auto) 0.9 x10^3/uL (1.0-4.8) 0.5 x10^3/uL (1.0-4.8) Monocytes # (Auto) 1.7 x10^3/uL (0.0-1.1) 1.1 x10^3/uL (0.0-1.1) Eosinophils # (Auto) 0.0 x10^3/uL (0.0-0.7) 0.0 x10^3/uL (0.0-0.7) Basophils # (Auto) 0.0 x10^3/uL (0.0-0.2) 0.1 x10^3/uL (0.0-0.2) Segmented Neutrophils % 63 % (35-66) Band Neutrophils % 24 % (0-9) Lymphocytes % 5 % (24-48) Monocytes % 8 % (0-10) Nucleated Red Blood Cells 1 Toxic Granulation Marked Platelet Estimate Increased (ADEQUATE) Hypochromasia Mod Anisocytosis Mod Sodium Level 131 mmol/L (136-145) 133 mmol/L (136-145) Potassium Level 4.6 mmol/L (3.5-5.1) 4.2 mmol/L (3.5-5.1) Chloride Level 97 mmol/L (98-107) 100 mmol/L (98-107) Carbon Dioxide Level 27 mmol/L (21-32) 27 mmol/L (21-32) Anion Gap 7 (6-14) 6 (6-14) Blood Urea Nitrogen 17 mg/dL (8-26) 14 mg/dL (8-26) Creatinine 0.9 mg/dL (0.7-1.3) 0.9 mg/dL (0.7-1.3) Estimated GFR (Cockcroft-Gault) 108.5 108.5 BUN/Creatinine Ratio 19 (6-20) Glucose Level 130 mg/dL (70-99) 117 mg/dL (70-99) Lactic Acid Level 2.2 mmol/L (0.4-2.0) 1.4 mmol/L (0.4-2.0) Calcium Level 7.9 mg/dL (8.5-10.1) 7.6 mg/dL (8.5-10.1) Total Bilirubin 0.7 mg/dL (0.2-1.0) Aspartate Amino Transf (AST/SGOT) 26 U/L (15-37) Alanine Aminotransferase (ALT/SGPT) 23 U/L (16-63) Alkaline Phosphatase 283 U/L (46-116) Total Protein 6.7 g/dL (6.4-8.2) Albumin 1.8 g/dL (3.4-5.0) Albumin/Globulin Ratio 0.4 (1.0-1.7) Lipase 76 U/L (73-393) Glucose (Fingerstick) 105 mg/dL (70-99) Hemoglobin A1c 7.1 % (4.8-5.6) Iron Level 25 ug/dL (65-175) Total Iron Binding Capacity 76 ug/dL (250-450) Iron Saturation 33 % (15-34) FL-Clj-V-Type Natriuretic Peptide 834 pg/mL (0-124) Procalcitonin 0.33 ng/mL (0.00-0.10) Thyroid Stimulating Hormone (TSH) 2.029 uIU/mL (0.358-3.74) Cortisol AM Sample 29.4 ug/dL (4.3-22.4) Test 10/22/19 10:10 10/22/19 11:43 10/22/19 12:35 10/22/19 17:16 Urine Collection Type Unknown Urine Color Demi Urine Clarity Clear Urine pH 6.0 (<5.0-8.0) Urine Specific [place] 1.020 (1.000-1.030) Urine Protein 30 mg/dL (NEG-TRACE) Urine Glucose (UA) Negative mg/dL (NEG) Urine Ketones (Stick) Negative mg/dL (NEG) Urine Blood Large (NEG) Urine Nitrite Negative (NEG) Urine Bilirubin Small (NEG) Urine Urobilinogen Dipstick 0.2 mg/dL (0.2 mg/dL) Urine Leukocyte Esterase Negative (NEG) Urine RBC >40 /HPF (0-2) Urine WBC 0 /HPF (0-4) Urine Squamous Epithelial Cells Occ /LPF Urine Bacteria 0 /HPF (0-FEW) Glucose (Fingerstick) 134 mg/dL (70-99) 114 mg/dL (70-99) Stool Campylobacter PCR Negative (NEGATIVE) Stool E. coli Shiga Toxins (PCR) Negative (NEGATIVE) Stool Salmonella PCR Negative (NEGATIVE) Stool Shigella PCR Negative (NEGATIVE) Test 10/22/19 20:49 10/23/19 05:30 10/23/19 07:19 Glucose (Fingerstick) 154 mg/dL (70-99) 122 mg/dL (70-99) White Blood Count 14.3 x10^3/uL (4.0-11.0) Red Blood Count 2.78 x10^6/uL (4.30-5.70) Hemoglobin 7.0 g/dL (13.0-17.5) Hematocrit 21.7 % (39.0-53.0) Mean Corpuscular Volume 78 fL (79-100) Mean Corpuscular Hemoglobin 25 pg (25-35) Mean Corpuscular Hemoglobin Concent 32 g/dL (31-37) Red Cell Distribution Width 21.5 % (11.5-14.5) Platelet Count 316 x10^3/uL (140-400) Neutrophils (%) (Auto) 83 % (31-73) Lymphocytes (%) (Auto) 7 % (24-48) Monocytes (%) (Auto) 10 % (0-9) Eosinophils (%) (Auto) 0 % (0-3) Basophils (%) (Auto) 0 % (0-3) Neutrophils # (Auto) 11.9 x10^3/uL (1.8-7.7) Lymphocytes # (Auto) 1.0 x10^3/uL (1.0-4.8) Monocytes # (Auto) 1.4 x10^3/uL (0.0-1.1) Eosinophils # (Auto) 0.0 x10^3/uL (0.0-0.7) Basophils # (Auto) 0.0 x10^3/uL (0.0-0.2) Sodium Level 133 mmol/L (136-145) Potassium Level 4.0 mmol/L (3.5-5.1) Chloride Level 101 mmol/L (98-107) Carbon Dioxide Level 25 mmol/L (21-32) Anion Gap 7 (6-14) Blood Urea Nitrogen 11 mg/dL (8-26) Creatinine 0.9 mg/dL (0.7-1.3) Estimated GFR (Cockcroft-Gault) 108.5 Glucose Level 158 mg/dL (70-99) Calcium Level 7.3 mg/dL (8.5-10.1) Laboratory Tests Test 10/22/19 08:35 10/22/19 08:45 10/22/19 10:10 10/22/19 11:43 Glucose (Fingerstick) 105 mg/dL (70-99) 134 mg/dL (70-99) White Blood Count 18.7 x10^3/uL (4.0-11.0) Red Blood Count 3.46 x10^6/uL (4.30-5.70) Hemoglobin 8.6 g/dL (13.0-17.5) Hematocrit 27.1 % (39.0-53.0) Mean Corpuscular Volume 78 fL (79-100) Mean Corpuscular Hemoglobin 25 pg (25-35) Mean Corpuscular Hemoglobin Concent 32 g/dL (31-37) Red Cell Distribution Width 21.8 % (11.5-14.5) Platelet Count 380 x10^3/uL (140-400) Neutrophils (%) (Auto) 91 % (31-73) Lymphocytes (%) (Auto) 3 % (24-48) Monocytes (%) (Auto) 6 % (0-9) Eosinophils (%) (Auto) 0 % (0-3) Basophils (%) (Auto) 1 % (0-3) Neutrophils # (Auto) 17.0 x10^3/uL (1.8-7.7) Lymphocytes # (Auto) 0.5 x10^3/uL (1.0-4.8) Monocytes # (Auto) 1.1 x10^3/uL (0.0-1.1) Eosinophils # (Auto) 0.0 x10^3/uL (0.0-0.7) Basophils # (Auto) 0.1 x10^3/uL (0.0-0.2) Sodium Level 133 mmol/L (136-145) Potassium Level 4.2 mmol/L (3.5-5.1) Chloride Level 100 mmol/L (98-107) Carbon Dioxide Level 27 mmol/L (21-32) Anion Gap 6 (6-14) Blood Urea Nitrogen 14 mg/dL (8-26) Creatinine 0.9 mg/dL (0.7-1.3) Estimated GFR (Cockcroft-Gault) 108.5 Glucose Level 117 mg/dL (70-99) Hemoglobin A1c 7.1 % (4.8-5.6) Calcium Level 7.6 mg/dL (8.5-10.1) Iron Level 25 ug/dL (65-175) Total Iron Binding Capacity 76 ug/dL (250-450) Iron Saturation 33 % (15-34) TS-Cjg-Q-Type Natriuretic Peptide 834 pg/mL (0-124) Procalcitonin 0.33 ng/mL (0.00-0.10) Thyroid Stimulating Hormone (TSH) 2.029 uIU/mL (0.358-3.74) Cortisol AM Sample 29.4 ug/dL (4.3-22.4) Urine Collection Type Unknown Urine Color Demi Urine Clarity Clear Urine pH 6.0 (<5.0-8.0) Urine Specific [place] 1.020 (1.000-1.030) Urine Protein 30 mg/dL (NEG-TRACE) Urine Glucose (UA) Negative mg/dL (NEG) Urine Ketones (Stick) Negative mg/dL (NEG) Urine Blood Large (NEG) Urine Nitrite Negative (NEG) Urine Bilirubin Small (NEG) Urine Urobilinogen Dipstick 0.2 mg/dL (0.2 mg/dL) Urine Leukocyte Esterase Negative (NEG) Urine RBC >40 /HPF (0-2) Urine WBC 0 /HPF (0-4) Urine Squamous Epithelial Cells Occ /LPF Urine Bacteria 0 /HPF (0-FEW) Test 10/22/19 12:35 10/22/19 17:16 10/22/19 20:49 10/23/19 05:30 Stool Campylobacter PCR Negative (NEGATIVE) Stool E. coli Shiga Toxins (PCR) Negative (NEGATIVE) Stool Salmonella PCR Negative (NEGATIVE) Stool Shigella PCR Negative (NEGATIVE) Glucose (Fingerstick) 114 mg/dL (70-99) 154 mg/dL (70-99) White Blood Count 14.3 x10^3/uL (4.0-11.0) Red Blood Count 2.78 x10^6/uL (4.30-5.70) Hemoglobin 7.0 g/dL (13.0-17.5) Hematocrit 21.7 % (39.0-53.0) Mean Corpuscular Volume 78 fL (79-100) Mean Corpuscular Hemoglobin 25 pg (25-35) Mean Corpuscular Hemoglobin Concent 32 g/dL (31-37) Red Cell Distribution Width 21.5 % (11.5-14.5) Platelet Count 316 x10^3/uL (140-400) Neutrophils (%) (Auto) 83 % (31-73) Lymphocytes (%) (Auto) 7 % (24-48) Monocytes (%) (Auto) 10 % (0-9) Eosinophils (%) (Auto) 0 % (0-3) Basophils (%) (Auto) 0 % (0-3) Neutrophils # (Auto) 11.9 x10^3/uL (1.8-7.7) Lymphocytes # (Auto) 1.0 x10^3/uL (1.0-4.8) Monocytes # (Auto) 1.4 x10^3/uL (0.0-1.1) Eosinophils # (Auto) 0.0 x10^3/uL (0.0-0.7) Basophils # (Auto) 0.0 x10^3/uL (0.0-0.2) Sodium Level 133 mmol/L (136-145) Potassium Level 4.0 mmol/L (3.5-5.1) Chloride Level 101 mmol/L (98-107) Carbon Dioxide Level 25 mmol/L (21-32) Anion Gap 7 (6-14) Blood Urea Nitrogen 11 mg/dL (8-26) Creatinine 0.9 mg/dL (0.7-1.3) Estimated GFR (Cockcroft-Gault) 108.5 Glucose Level 158 mg/dL (70-99) Calcium Level 7.3 mg/dL (8.5-10.1) Test 10/23/19 07:19 Glucose (Fingerstick) 122 mg/dL (70-99) Microbiology 10/21/19 Blood Culture - Preliminary, Resulted NO GROWTH AFTER 1 DAY Medications Current Medications Sodium Chloride 1,000 ml @ 1,000 mls/hr 1X ONCE IV Last administered on 10/21/19at 18:18; Start 10/21/19 at 18:00; Stop 10/21/19 at 18:59; Status DC Levofloxacin/ Dextrose 150 ml @ 100 mls/hr 1X ONCE IV Last administered on 10/21/19at 19:58; Start 10/21/19 at 19:45; Stop 10/21/19 at 21:14; Status DC Ondansetron HCl (Zofran) 4 mg PRN Q8HRS PRN IV NAUSEA/VOMITING; Start 10/21/19 at 20:30; Stop 10/22/19 at 07:58; Status DC Morphine Sulfate (Morphine Sulfate) 2 mg PRN Q2HR PRN IV PAIN; Start 10/21/19 at 20:30; Stop 10/22/19 at 07:58; Status DC Oxycodone HCl (Roxicodone) 15 mg PRN Q6HRS PRN PO PAIN Last administered on 10/22/19at 05:46; Start 10/21/19 at 21:00; Stop 10/22/19 at 11:30; Status DC Sodium Chloride 1,000 ml @ 1,000 mls/hr 1X ONCE IV Last administered on 10/21/19at 22:18; Start 10/21/19 at 22:30; Stop 10/21/19 at 23:29; Status DC Alprazolam (Xanax) 0.5 mg 1X ONCE PO Last administered on 10/21/19at 23:22; Start 10/21/19 at 23:30; Stop 10/21/19 at 23:31; Status DC Trazodone HCl (Desyrel) 50 mg 1X ONCE PO Last administered on 10/21/19 23:22; Start 10/21/19 at 23:30; Stop 10/21/19 at 23:31; Status DC Morphine Sulfate (Morphine Sulfate) 2 mg PRN Q4HRS PRN IV MODERATE PAIN; Start 10/22/19 at 08:00 Ondansetron HCl (Zofran) 4 mg PRN Q4HRS PRN IV NAUSEA/VOMITING; Start 10/22/19 at 08:00 Acetaminophen (Tylenol) 500 mg PRN Q6HRS PRN PO pain or fever Last administered on 10/22/19 09:22; Start 10/22/19 at 08:00 Buspirone HCl (Buspar) 10 mg BIDACBL PO Last administered on 10/22/19 11:17; Start 10/22/19 at 11:30 Ferrous Sulfate (Feosol) 325 mg BIDWMEALS PO Last administered on 10/22/19 16:52; Start 10/22/19 at 09:00 Gabapentin (Neurontin) 100 mg TID PO Last administered on 10/22/19 21:07; Start 10/22/19 at 09:00 Pantoprazole Sodium (Protonix) 40 mg DAILYAC PO Last administered on 10/22/19 09:19; Start 10/22/19 at 08:15 Trazodone HCl (Desyrel) 50 mg QHS PO Last administered on 10/22/19 21:07; Start 10/22/19 at 21:00 Insulin Glargine (Lantus Syringe) 5 unit QHS SQ Last administered on 10/22/19at 21:13; Start 10/22/19 at 21:00 Non-Formulary Medication (Melatonin ) 2 tab QHS PO ; Start 10/22/19 at 21:00; Status UNV Insulin Human Lispro (HumaLOG) 0-7 UNITS TIDACHC SQ ; Start 10/22/19 at 11:30 Dextrose (Dextrose 50%-Water Syringe) 12.5 gm PRN Q15MIN PRN IV SEE COMMENTS; Start 10/22/19 at 08:00 Sodium Chloride 1,000 ml @ 1,000 mls/hr 1X ONCE IV Last administered on 10/22/19 11:17; Start 10/22/19 at 10:00; Stop 10/22/19 at 10:59; Status DC Lorazepam (Ativan Inj) 1 mg PRN Q5MIN PRN IVP ANXIETY / AGITATION Last administered on 10/22/19at 12:16; Start 10/22/19 at 11:00 Psyllium Hydrophilic Mucilloid (Metamucil Fiber Packet) 1 pkt QHS PO ; Start 10/22/19 at 21:00 Iohexol (Omnipaque 240 Mg/ml) 30 ml 1X ONCE PO Last administered on 10/22/19at 11:00; Start 10/22/19 at 11:00; Stop 10/22/19 at 11:01; Status DC Iohexol (Omnipaque 300 Mg/ml) 75 ml 1X ONCE IV Last administered on 10/22/19at 11:00; Start 10/22/19 at 11:00; Stop 10/22/19 at 11:01; Status DC Info (CONTRAST GIVEN -- Rx MONITORING) 1 each PRN DAILY PRN MC SEE COMMENTS; Start 10/22/19 at 11:15; Stop 10/24/19 at 11:14 Enoxaparin Sodium (Lovenox 40mg Syringe) 40 mg Q24H SQ ; Start 10/22/19 at 12:00; Stop 10/22/19 at 15:51; Status DC Oxycodone HCl (Roxicodone) 5 mg PRN Q6HRS PRN PO PAIN Last administered on 10/23/19at 04:02; Start 10/22/19 at 11:30 Piperacillin Sod/ Tazobactam Sod 3.375 gm/Sodium Chloride 50 ml @ 100 mls/hr Q6HRS IV Last administered on 10/23/19at 05:52; Start 10/22/19 at 16:00 Piperacillin Sod/ Tazobactam Sod (Zosyn Per Pharmacy) 1 each PRN DAILY PRN [facility] SEE COMMENTS; Start 10/22/19 at 16:00 Active Scripts Active Reported Buspirone Hcl 10 Mg Tablet 1 Tab PO BIDACBL Alprazolam 0.5 Mg Tablet 1 Tab PO HS Acetaminophen 500 Mg Tablet 1 Tab PO PRN Q6HRS PRN 15 Days Levemir (Insulin Detemir) 100 Unit/1 Ml Vial 5 Unit SQ DAILY PRN 5 units daily in morning if bs greater than 200. Oxycodone Hcl Immed.release (Oxycodone Hcl) 15 Mg Tablet 15 Mg PO PRN Q6HRS PRN Ferrous Sulfate 325 Mg Tablet 65 Mg PO BID Metformin Hcl 500 Mg Tablet 500 Mg PO BIDWMEALS Amlodipine Besylate 10 Mg Tablet 10 Mg PO DAILY Pantoprazole Sodium (Pantoprazole Sodium) 40 Mg Tablet.dr 40 Mg PO DAILYAC Trazodone Hcl 50 Mg Tablet 1 Tab PO QHS Furosemide 20 Mg Tablet 1 Tab PO DAILY Gabapentin (Gabapentin) 100 Mg Capsule 100 Mg PO TID Metoprolol Tartrate 100 Mg Tablet 1 Tab PO BID Melatonin 3 Mg Tablet 2 Tab PO QHS Vitals/I & O Vital Sign - Last 24 Hours 10/22/19 10/22/19 10/22/19 10/22/19 11:00 15:00 19:00 20:00 Temp 97.5 97.6 98.2 97.5 97.6 98.2 Pulse 100 95 108 Resp 18 18 20 B/P (MAP) 91/55 (67) 86/50 (62) 112/70 (84) Pulse Ox 96 99 97 O2 Delivery Room Air Room Air Room Air Room Air 10/22/19 10/22/19 10/22/19 10/23/19 21:07 22:07 22:57 02:43 Temp 98.2 98.2 Pulse 106 112 Resp 19 18 B/P (MAP) 115/73 (87) 97/59 (72) Pulse Ox 98 97 O2 Delivery Room Air Room Air Room Air Room Air 10/23/19 10/23/19 10/23/19 04:02 05:04 07:00 Temp 98.0 98.0 Pulse 111 Resp 20 B/P (MAP) 103/67 (79) Pulse Ox 96 O2 Delivery Room Air Room Air Room Air Intake and Output 10/22/19 10/22/19 10/23/19 15:00 23:00 07:00 Intake Total 60 ml 910 ml Balance 60 ml 910 ml Nutrition Consultation Dietary Evaluation: Recommendations by RD: Dietary education by RD, Increase Calorie Intake, Protein supplementation, Add supplement feedings Comments: Continue w/ADA diet (blood sugar management) w/magic cup supplement w/dinner and more often if pt likes it; honor food preferences and provide snacks as requested REC tube feedings via G-tube w/ jejunal extension per following: Osmolite 1.5@20 ml/hr, increase 10 ml q8 hrs as tolerated to goal rate 60 ml/hr x12 hrs overnight w/100 ml water flushes q4 hrs during feeding Expected Outcomes/Goals: nutritition intake to meet >75% est needs Interpretation of weight loss: >7.5% in 3 months Malnutrition Findings: Food and Nutrition Intake (Sev: <50% est energy req 5days Weight Status: Appropriate Justicifation of Admission Dx: Justifications for Admission: Justification of Admission Dx: Yes Comminuty Aquired Pneumonia: Med-High Risk Pt Sepsis: Infection JUAN ANTONIO OWUSU MD Oct 23, 2019 08:34
--- NOTE | 2019-10-23 08:41 | PDOC ---
PULMONARY PROGRESS NOTES Subjective Patient continues to be short of air experiencing abdominal pain some nausea Vitals Vital Signs Date Time Temp Pulse Resp B/P (MAP) Pulse Ox O2 Delivery O2 Flow Rate FiO2 10/23/19 07:00 98.0 111 20 103/67 (79) 96 Room Air 98.0 ROS: No Chest Pain, No Increase Cough General: Alert Lungs: Clear Cardiovascular: S1, S2 Abdomen: Soft, Other (Diffuse tenderness) Extremities: Other Labs Laboratory Tests Test 10/21/19 17:36 10/21/19 21:25 10/22/19 08:35 10/22/19 08:45 White Blood Count 19.4 x10^3/uL (4.0-11.0) 18.7 x10^3/uL (4.0-11.0) Red Blood Count 3.46 x10^6/uL (4.30-5.70) 3.46 x10^6/uL (4.30-5.70) Hemoglobin 8.6 g/dL (13.0-17.5) 8.6 g/dL (13.0-17.5) Hematocrit 27.4 % (39.0-53.0) 27.1 % (39.0-53.0) Mean Corpuscular Volume 79 fL (79-100) 78 fL (79-100) Mean Corpuscular Hemoglobin 25 pg (25-35) 25 pg (25-35) Mean Corpuscular Hemoglobin Concent 31 g/dL (31-37) 32 g/dL (31-37) Red Cell Distribution Width 21.2 % (11.5-14.5) 21.8 % (11.5-14.5) Platelet Count 456 x10^3/uL (140-400) 380 x10^3/uL (140-400) Neutrophils (%) (Auto) 87 % (31-73) 91 % (31-73) Lymphocytes (%) (Auto) 4 % (24-48) 3 % (24-48) Monocytes (%) (Auto) 9 % (0-9) 6 % (0-9) Eosinophils (%) (Auto) 0 % (0-3) 0 % (0-3) Basophils (%) (Auto) 0 % (0-3) 1 % (0-3) Neutrophils # (Auto) 16.9 x10^3/uL (1.8-7.7) 17.0 x10^3/uL (1.8-7.7) Lymphocytes # (Auto) 0.9 x10^3/uL (1.0-4.8) 0.5 x10^3/uL (1.0-4.8) Monocytes # (Auto) 1.7 x10^3/uL (0.0-1.1) 1.1 x10^3/uL (0.0-1.1) Eosinophils # (Auto) 0.0 x10^3/uL (0.0-0.7) 0.0 x10^3/uL (0.0-0.7) Basophils # (Auto) 0.0 x10^3/uL (0.0-0.2) 0.1 x10^3/uL (0.0-0.2) Segmented Neutrophils % 63 % (35-66) Band Neutrophils % 24 % (0-9) Lymphocytes % 5 % (24-48) Monocytes % 8 % (0-10) Nucleated Red Blood Cells 1 Toxic Granulation Marked Platelet Estimate Increased (ADEQUATE) Hypochromasia Mod Anisocytosis Mod Sodium Level 131 mmol/L (136-145) 133 mmol/L (136-145) Potassium Level 4.6 mmol/L (3.5-5.1) 4.2 mmol/L (3.5-5.1) Chloride Level 97 mmol/L (98-107) 100 mmol/L (98-107) Carbon Dioxide Level 27 mmol/L (21-32) 27 mmol/L (21-32) Anion Gap 7 (6-14) 6 (6-14) Blood Urea Nitrogen 17 mg/dL (8-26) 14 mg/dL (8-26) Creatinine 0.9 mg/dL (0.7-1.3) 0.9 mg/dL (0.7-1.3) Estimated GFR (Cockcroft-Gault) 108.5 108.5 BUN/Creatinine Ratio 19 (6-20) Glucose Level 130 mg/dL (70-99) 117 mg/dL (70-99) Lactic Acid Level 2.2 mmol/L (0.4-2.0) 1.4 mmol/L (0.4-2.0) Calcium Level 7.9 mg/dL (8.5-10.1) 7.6 mg/dL (8.5-10.1) Total Bilirubin 0.7 mg/dL (0.2-1.0) Aspartate Amino Transf (AST/SGOT) 26 U/L (15-37) Alanine Aminotransferase (ALT/SGPT) 23 U/L (16-63) Alkaline Phosphatase 283 U/L (46-116) Total Protein 6.7 g/dL (6.4-8.2) Albumin 1.8 g/dL (3.4-5.0) Albumin/Globulin Ratio 0.4 (1.0-1.7) Lipase 76 U/L (73-393) Glucose (Fingerstick) 105 mg/dL (70-99) Hemoglobin A1c 7.1 % (4.8-5.6) Iron Level 25 ug/dL (65-175) Total Iron Binding Capacity 76 ug/dL (250-450) Iron Saturation 33 % (15-34) QX-Swu-Z-Type Natriuretic Peptide 834 pg/mL (0-124) Procalcitonin 0.33 ng/mL (0.00-0.10) Thyroid Stimulating Hormone (TSH) 2.029 uIU/mL (0.358-3.74) Cortisol AM Sample 29.4 ug/dL (4.3-22.4) Test 10/22/19 10:10 10/22/19 11:43 10/22/19 12:35 10/22/19 17:16 Urine Collection Type Unknown Urine Color Demi Urine Clarity Clear Urine pH 6.0 (<5.0-8.0) Urine Specific [place] 1.020 (1.000-1.030) Urine Protein 30 mg/dL (NEG-TRACE) Urine Glucose (UA) Negative mg/dL (NEG) Urine Ketones (Stick) Negative mg/dL (NEG) Urine Blood Large (NEG) Urine Nitrite Negative (NEG) Urine Bilirubin Small (NEG) Urine Urobilinogen Dipstick 0.2 mg/dL (0.2 mg/dL) Urine Leukocyte Esterase Negative (NEG) Urine RBC >40 /HPF (0-2) Urine WBC 0 /HPF (0-4) Urine Squamous Epithelial Cells Occ /LPF Urine Bacteria 0 /HPF (0-FEW) Glucose (Fingerstick) 134 mg/dL (70-99) 114 mg/dL (70-99) Stool Campylobacter PCR Negative (NEGATIVE) Stool E. coli Shiga Toxins (PCR) Negative (NEGATIVE) Stool Salmonella PCR Negative (NEGATIVE) Stool Shigella PCR Negative (NEGATIVE) Test 10/22/19 20:49 10/23/19 05:30 10/23/19 07:19 Glucose (Fingerstick) 154 mg/dL (70-99) 122 mg/dL (70-99) White Blood Count 14.3 x10^3/uL (4.0-11.0) Red Blood Count 2.78 x10^6/uL (4.30-5.70) Hemoglobin 7.0 g/dL (13.0-17.5) Hematocrit 21.7 % (39.0-53.0) Mean Corpuscular Volume 78 fL (79-100) Mean Corpuscular Hemoglobin 25 pg (25-35) Mean Corpuscular Hemoglobin Concent 32 g/dL (31-37) Red Cell Distribution Width 21.5 % (11.5-14.5) Platelet Count 316 x10^3/uL (140-400) Neutrophils (%) (Auto) 83 % (31-73) Lymphocytes (%) (Auto) 7 % (24-48) Monocytes (%) (Auto) 10 % (0-9) Eosinophils (%) (Auto) 0 % (0-3) Basophils (%) (Auto) 0 % (0-3) Neutrophils # (Auto) 11.9 x10^3/uL (1.8-7.7) Lymphocytes # (Auto) 1.0 x10^3/uL (1.0-4.8) Monocytes # (Auto) 1.4 x10^3/uL (0.0-1.1) Eosinophils # (Auto) 0.0 x10^3/uL (0.0-0.7) Basophils # (Auto) 0.0 x10^3/uL (0.0-0.2) Sodium Level 133 mmol/L (136-145) Potassium Level 4.0 mmol/L (3.5-5.1) Chloride Level 101 mmol/L (98-107) Carbon Dioxide Level 25 mmol/L (21-32) Anion Gap 7 (6-14) Blood Urea Nitrogen 11 mg/dL (8-26) Creatinine 0.9 mg/dL (0.7-1.3) Estimated GFR (Cockcroft-Gault) 108.5 Glucose Level 158 mg/dL (70-99) Calcium Level 7.3 mg/dL (8.5-10.1) Laboratory Tests Test 10/22/19 08:45 10/22/19 10:10 10/22/19 11:43 10/22/19 12:35 White Blood Count 18.7 x10^3/uL (4.0-11.0) Red Blood Count 3.46 x10^6/uL (4.30-5.70) Hemoglobin 8.6 g/dL (13.0-17.5) Hematocrit 27.1 % (39.0-53.0) Mean Corpuscular Volume 78 fL (79-100) Mean Corpuscular Hemoglobin 25 pg (25-35) Mean Corpuscular Hemoglobin Concent 32 g/dL (31-37) Red Cell Distribution Width 21.8 % (11.5-14.5) Platelet Count 380 x10^3/uL (140-400) Neutrophils (%) (Auto) 91 % (31-73) Lymphocytes (%) (Auto) 3 % (24-48) Monocytes (%) (Auto) 6 % (0-9) Eosinophils (%) (Auto) 0 % (0-3) Basophils (%) (Auto) 1 % (0-3) Neutrophils # (Auto) 17.0 x10^3/uL (1.8-7.7) Lymphocytes # (Auto) 0.5 x10^3/uL (1.0-4.8) Monocytes # (Auto) 1.1 x10^3/uL (0.0-1.1) Eosinophils # (Auto) 0.0 x10^3/uL (0.0-0.7) Basophils # (Auto) 0.1 x10^3/uL (0.0-0.2) Sodium Level 133 mmol/L (136-145) Potassium Level 4.2 mmol/L (3.5-5.1) Chloride Level 100 mmol/L (98-107) Carbon Dioxide Level 27 mmol/L (21-32) Anion Gap 6 (6-14) Blood Urea Nitrogen 14 mg/dL (8-26) Creatinine 0.9 mg/dL (0.7-1.3) Estimated GFR (Cockcroft-Gault) 108.5 Glucose Level 117 mg/dL (70-99) Hemoglobin A1c 7.1 % (4.8-5.6) Calcium Level 7.6 mg/dL (8.5-10.1) Iron Level 25 ug/dL (65-175) Total Iron Binding Capacity 76 ug/dL (250-450) Iron Saturation 33 % (15-34) UO-Smy-H-Type Natriuretic Peptide 834 pg/mL (0-124) Procalcitonin 0.33 ng/mL (0.00-0.10) Thyroid Stimulating Hormone (TSH) 2.029 uIU/mL (0.358-3.74) Cortisol AM Sample 29.4 ug/dL (4.3-22.4) Urine Collection Type Unknown Urine Color Demi Urine Clarity Clear Urine pH 6.0 (<5.0-8.0) Urine Specific [place] 1.020 (1.000-1.030) Urine Protein 30 mg/dL (NEG-TRACE) Urine Glucose (UA) Negative mg/dL (NEG) Urine Ketones (Stick) Negative mg/dL (NEG) Urine Blood Large (NEG) Urine Nitrite Negative (NEG) Urine Bilirubin Small (NEG) Urine Urobilinogen Dipstick 0.2 mg/dL (0.2 mg/dL) Urine Leukocyte Esterase Negative (NEG) Urine RBC >40 /HPF (0-2) Urine WBC 0 /HPF (0-4) Urine Squamous Epithelial Cells Occ /LPF Urine Bacteria 0 /HPF (0-FEW) Glucose (Fingerstick) 134 mg/dL (70-99) Stool Campylobacter PCR Negative (NEGATIVE) Stool E. coli Shiga Toxins (PCR) Negative (NEGATIVE) Stool Salmonella PCR Negative (NEGATIVE) Stool Shigella PCR Negative (NEGATIVE) Test 10/22/19 17:16 10/22/19 20:49 10/23/19 05:30 10/23/19 07:19 Glucose (Fingerstick) 114 mg/dL (70-99) 154 mg/dL (70-99) 122 mg/dL (70-99) White Blood Count 14.3 x10^3/uL (4.0-11.0) Red Blood Count 2.78 x10^6/uL (4.30-5.70) Hemoglobin 7.0 g/dL (13.0-17.5) Hematocrit 21.7 % (39.0-53.0) Mean Corpuscular Volume 78 fL (79-100) Mean Corpuscular Hemoglobin 25 pg (25-35) Mean Corpuscular Hemoglobin Concent 32 g/dL (31-37) Red Cell Distribution Width 21.5 % (11.5-14.5) Platelet Count 316 x10^3/uL (140-400) Neutrophils (%) (Auto) 83 % (31-73) Lymphocytes (%) (Auto) 7 % (24-48) Monocytes (%) (Auto) 10 % (0-9) Eosinophils (%) (Auto) 0 % (0-3) Basophils (%) (Auto) 0 % (0-3) Neutrophils # (Auto) 11.9 x10^3/uL (1.8-7.7) Lymphocytes # (Auto) 1.0 x10^3/uL (1.0-4.8) Monocytes # (Auto) 1.4 x10^3/uL (0.0-1.1) Eosinophils # (Auto) 0.0 x10^3/uL (0.0-0.7) Basophils # (Auto) 0.0 x10^3/uL (0.0-0.2) Sodium Level 133 mmol/L (136-145) Potassium Level 4.0 mmol/L (3.5-5.1) Chloride Level 101 mmol/L (98-107) Carbon Dioxide Level 25 mmol/L (21-32) Anion Gap 7 (6-14) Blood Urea Nitrogen 11 mg/dL (8-26) Creatinine 0.9 mg/dL (0.7-1.3) Estimated GFR (Cockcroft-Gault) 108.5 Glucose Level 158 mg/dL (70-99) Calcium Level 7.3 mg/dL (8.5-10.1) Medications Active Scripts Medications Dose Route/Sig Max Daily Dose Days Date Category Dose Instructions Buspirone Hcl 10 Mg Tablet 1 Tab PO BIDACBL 10/21/19 Reported Alprazolam 0.5 Mg Tablet 1 Tab PO HS 10/16/19 Reported Acetaminophen 500 Mg Tablet 1 Tab PO PRN Q6HRS PRN 15 10/16/19 Reported Levemir (Insulin Detemir) 100 Unit/1 Ml Vial 5 Unit SQ DAILY PRN 10/16/19 Reported 5 units daily in morning if bs greater than 200. Oxycodone Hcl Immed.release (Oxycodone Hcl) 15 Mg Tablet 15 Mg PO PRN Q6HRS PRN 10/16/19 Reported Ferrous Sulfate 325 Mg Tablet 65 Mg PO BID 10/16/19 Reported Metformin Hcl 500 Mg Tablet 500 Mg PO BIDWMEALS 10/16/19 Reported Amlodipine Besylate 10 Mg Tablet 10 Mg PO DAILY 10/16/19 Reported Pantoprazole Sodium (Pantoprazole Sodium) 40 Mg Tablet.dr 40 Mg PO DAILYAC 08/15/19 Reported Trazodone Hcl 50 Mg Tablet 1 Tab PO QHS 08/15/19 Reported Furosemide 20 Mg Tablet 1 Tab PO DAILY 08/15/19 Reported Gabapentin (Gabapentin) 100 Mg Capsule 100 Mg PO TID 08/15/19 Reported Metoprolol Tartrate 100 Mg Tablet 1 Tab PO BID 08/15/19 Reported Melatonin 3 Mg Tablet 2 Tab PO QHS 08/15/19 Reported Impression . MPRESSION: 1. Abnormal x-ray revealing possible atelectasis, infiltrate in the left lower base. 2. Right upper quadrant pain. 3. Leukocytosis. 4. Diarrhea. 5. Status post exploratory laparotomy with pancreatic necrosectomy, cholecystectomy, gastrostomy tube placement, tracheotomy. 6. Hyponatremia. 7. Hepatitis B. 8. Generalized weakness. 9. Small left-sided effusion. CT report Impression: Decreased size of the necrotic pancreas. Mildly to moderately increased size of the collection extending from pancreatic tail to the left subdiaphragmatic region. Moderate quantity of ascites. Greater amount of ascites is noted in the interval. Left posterior basilar loculated pleural effusion with adjacent atelectatic consolidation. Considering the pleural thickening evident at the left posterior basilar aspect but the pleural effusion, possible empyema drainage. Diffuse heterogeneous low attenuation of the liver is new in the interval. Portal vein is diminutive. Correlate for underlying inflammatory process. Findings may partly due to fatty infiltration of the liver although the findings are more evident since prior exam. Portal vein is diminutive in size but similar to the prior exam. Colonic wall edema is seen in the interval. Correlate for underlying colitis. No obstruction. Decompressed vena cava. Cardiomegaly with hydration status. Plan . CT chest reviewed not enough fluid to perform thoracentesis Treat for pneumonia Incentive spirometry Follow surgery input, very complex situation. Empiric DESTINI MATOS MD Oct 23, 2019 08:41
[2019-10-23] MEDS: GABAPENTIN 100 MG CAPSULE. PO SCH ×2 (09:00→09:03)
[2019-10-23] MEDS: FERROUS SULFATE 325 MG TABLET. PO SCH ×2 (09:03→17:38)
[2019-10-23] MEDS: PANTOPRAZOLE 40 MG TABLET.DR. PO SCH (09:03)
--- NOTE | 2019-10-23 10:54 | PDOC ---
SURGICAL PROGRESS NOTE Subjective family present loose stools per nurse cdiff negative TF at night Vital Signs Vital Signs Date Time Temp Pulse Resp B/P (MAP) Pulse Ox O2 Delivery O2 Flow Rate FiO2 10/23/19 07:00 98.0 111 20 103/67 (79) 96 Room Air 98.0 I&O Intake and Output 10/23/19 07:00 Intake Total 970 ml Balance 970 ml Intake Oral 750 ml Tube Feeding 120 ml Blood Product IV Normal Saline Flush 100 ml # Voids 1 # Bowel Movements 2 General: Cooperative, No acute distress Abdomen: Soft, Other (distended) Labs Laboratory Tests Test 10/21/19 17:36 10/21/19 21:25 10/22/19 08:35 10/22/19 08:45 White Blood Count 19.4 x10^3/uL (4.0-11.0) 18.7 x10^3/uL (4.0-11.0) Red Blood Count 3.46 x10^6/uL (4.30-5.70) 3.46 x10^6/uL (4.30-5.70) Hemoglobin 8.6 g/dL (13.0-17.5) 8.6 g/dL (13.0-17.5) Hematocrit 27.4 % (39.0-53.0) 27.1 % (39.0-53.0) Mean Corpuscular Volume 79 fL (79-100) 78 fL (79-100) Mean Corpuscular Hemoglobin 25 pg (25-35) 25 pg (25-35) Mean Corpuscular Hemoglobin Concent 31 g/dL (31-37) 32 g/dL (31-37) Red Cell Distribution Width 21.2 % (11.5-14.5) 21.8 % (11.5-14.5) Platelet Count 456 x10^3/uL (140-400) 380 x10^3/uL (140-400) Neutrophils (%) (Auto) 87 % (31-73) 91 % (31-73) Lymphocytes (%) (Auto) 4 % (24-48) 3 % (24-48) Monocytes (%) (Auto) 9 % (0-9) 6 % (0-9) Eosinophils (%) (Auto) 0 % (0-3) 0 % (0-3) Basophils (%) (Auto) 0 % (0-3) 1 % (0-3) Neutrophils # (Auto) 16.9 x10^3/uL (1.8-7.7) 17.0 x10^3/uL (1.8-7.7) Lymphocytes # (Auto) 0.9 x10^3/uL (1.0-4.8) 0.5 x10^3/uL (1.0-4.8) Monocytes # (Auto) 1.7 x10^3/uL (0.0-1.1) 1.1 x10^3/uL (0.0-1.1) Eosinophils # (Auto) 0.0 x10^3/uL (0.0-0.7) 0.0 x10^3/uL (0.0-0.7) Basophils # (Auto) 0.0 x10^3/uL (0.0-0.2) 0.1 x10^3/uL (0.0-0.2) Segmented Neutrophils % 63 % (35-66) Band Neutrophils % 24 % (0-9) Lymphocytes % 5 % (24-48) Monocytes % 8 % (0-10) Nucleated Red Blood Cells 1 Toxic Granulation Marked Platelet Estimate Increased (ADEQUATE) Hypochromasia Mod Anisocytosis Mod Sodium Level 131 mmol/L (136-145) 133 mmol/L (136-145) Potassium Level 4.6 mmol/L (3.5-5.1) 4.2 mmol/L (3.5-5.1) Chloride Level 97 mmol/L (98-107) 100 mmol/L (98-107) Carbon Dioxide Level 27 mmol/L (21-32) 27 mmol/L (21-32) Anion Gap 7 (6-14) 6 (6-14) Blood Urea Nitrogen 17 mg/dL (8-26) 14 mg/dL (8-26) Creatinine 0.9 mg/dL (0.7-1.3) 0.9 mg/dL (0.7-1.3) Estimated GFR (Cockcroft-Gault) 108.5 108.5 BUN/Creatinine Ratio 19 (6-20) Glucose Level 130 mg/dL (70-99) 117 mg/dL (70-99) Lactic Acid Level 2.2 mmol/L (0.4-2.0) 1.4 mmol/L (0.4-2.0) Calcium Level 7.9 mg/dL (8.5-10.1) 7.6 mg/dL (8.5-10.1) Total Bilirubin 0.7 mg/dL (0.2-1.0) Aspartate Amino Transf (AST/SGOT) 26 U/L (15-37) Alanine Aminotransferase (ALT/SGPT) 23 U/L (16-63) Alkaline Phosphatase 283 U/L (46-116) Total Protein 6.7 g/dL (6.4-8.2) Albumin 1.8 g/dL (3.4-5.0) Albumin/Globulin Ratio 0.4 (1.0-1.7) Lipase 76 U/L (73-393) Glucose (Fingerstick) 105 mg/dL (70-99) Hemoglobin A1c 7.1 % (4.8-5.6) Iron Level 25 ug/dL (65-175) Total Iron Binding Capacity 76 ug/dL (250-450) Iron Saturation 33 % (15-34) XU-Ado-U-Type Natriuretic Peptide 834 pg/mL (0-124) Procalcitonin 0.33 ng/mL (0.00-0.10) Thyroid Stimulating Hormone (TSH) 2.029 uIU/mL (0.358-3.74) Cortisol AM Sample 29.4 ug/dL (4.3-22.4) Test 10/22/19 10:10 10/22/19 11:43 10/22/19 12:35 10/22/19 17:16 Urine Collection Type Unknown Urine Color Demi Urine Clarity Clear Urine pH 6.0 (<5.0-8.0) Urine Specific [place] 1.020 (1.000-1.030) Urine Protein 30 mg/dL (NEG-TRACE) Urine Glucose (UA) Negative mg/dL (NEG) Urine Ketones (Stick) Negative mg/dL (NEG) Urine Blood Large (NEG) Urine Nitrite Negative (NEG) Urine Bilirubin Small (NEG) Urine Urobilinogen Dipstick 0.2 mg/dL (0.2 mg/dL) Urine Leukocyte Esterase Negative (NEG) Urine RBC >40 /HPF (0-2) Urine WBC 0 /HPF (0-4) Urine Squamous Epithelial Cells Occ /LPF Urine Bacteria 0 /HPF (0-FEW) Glucose (Fingerstick) 134 mg/dL (70-99) 114 mg/dL (70-99) Stool Campylobacter PCR Negative (NEGATIVE) Stool E. coli Shiga Toxins (PCR) Negative (NEGATIVE) Stool Salmonella PCR Negative (NEGATIVE) Stool Shigella PCR Negative (NEGATIVE) Test 10/22/19 20:49 10/23/19 05:30 10/23/19 07:19 Glucose (Fingerstick) 154 mg/dL (70-99) 122 mg/dL (70-99) White Blood Count 14.3 x10^3/uL (4.0-11.0) Red Blood Count 2.78 x10^6/uL (4.30-5.70) Hemoglobin 7.0 g/dL (13.0-17.5) Hematocrit 21.7 % (39.0-53.0) Mean Corpuscular Volume 78 fL (79-100) Mean Corpuscular Hemoglobin 25 pg (25-35) Mean Corpuscular Hemoglobin Concent 32 g/dL (31-37) Red Cell Distribution Width 21.5 % (11.5-14.5) Platelet Count 316 x10^3/uL (140-400) Neutrophils (%) (Auto) 83 % (31-73) Lymphocytes (%) (Auto) 7 % (24-48) Monocytes (%) (Auto) 10 % (0-9) Eosinophils (%) (Auto) 0 % (0-3) Basophils (%) (Auto) 0 % (0-3) Neutrophils # (Auto) 11.9 x10^3/uL (1.8-7.7) Lymphocytes # (Auto) 1.0 x10^3/uL (1.0-4.8) Monocytes # (Auto) 1.4 x10^3/uL (0.0-1.1) Eosinophils # (Auto) 0.0 x10^3/uL (0.0-0.7) Basophils # (Auto) 0.0 x10^3/uL (0.0-0.2) Sodium Level 133 mmol/L (136-145) Potassium Level 4.0 mmol/L (3.5-5.1) Chloride Level 101 mmol/L (98-107) Carbon Dioxide Level 25 mmol/L (21-32) Anion Gap 7 (6-14) Blood Urea Nitrogen 11 mg/dL (8-26) Creatinine 0.9 mg/dL (0.7-1.3) Estimated GFR (Cockcroft-Gault) 108.5 Glucose Level 158 mg/dL (70-99) Calcium Level 7.3 mg/dL (8.5-10.1) Laboratory Tests Test 10/22/19 11:43 10/22/19 12:35 10/22/19 17:16 10/22/19 20:49 Glucose (Fingerstick) 134 mg/dL (70-99) 114 mg/dL (70-99) 154 mg/dL (70-99) Stool Campylobacter PCR Negative (NEGATIVE) Stool E. coli Shiga Toxins (PCR) Negative (NEGATIVE) Stool Salmonella PCR Negative (NEGATIVE) Stool Shigella PCR Negative (NEGATIVE) Test 10/23/19 05:30 10/23/19 07:19 White Blood Count 14.3 x10^3/uL (4.0-11.0) Red Blood Count 2.78 x10^6/uL (4.30-5.70) Hemoglobin 7.0 g/dL (13.0-17.5) Hematocrit 21.7 % (39.0-53.0) Mean Corpuscular Volume 78 fL (79-100) Mean Corpuscular Hemoglobin 25 pg (25-35) Mean Corpuscular Hemoglobin Concent 32 g/dL (31-37) Red Cell Distribution Width 21.5 % (11.5-14.5) Platelet Count 316 x10^3/uL (140-400) Neutrophils (%) (Auto) 83 % (31-73) Lymphocytes (%) (Auto) 7 % (24-48) Monocytes (%) (Auto) 10 % (0-9) Eosinophils (%) (Auto) 0 % (0-3) Basophils (%) (Auto) 0 % (0-3) Neutrophils # (Auto) 11.9 x10^3/uL (1.8-7.7) Lymphocytes # (Auto) 1.0 x10^3/uL (1.0-4.8) Monocytes # (Auto) 1.4 x10^3/uL (0.0-1.1) Eosinophils # (Auto) 0.0 x10^3/uL (0.0-0.7) Basophils # (Auto) 0.0 x10^3/uL (0.0-0.2) Sodium Level 133 mmol/L (136-145) Potassium Level 4.0 mmol/L (3.5-5.1) Chloride Level 101 mmol/L (98-107) Carbon Dioxide Level 25 mmol/L (21-32) Anion Gap 7 (6-14) Blood Urea Nitrogen 11 mg/dL (8-26) Creatinine 0.9 mg/dL (0.7-1.3) Estimated GFR (Cockcroft-Gault) 108.5 Glucose Level 158 mg/dL (70-99) Calcium Level 7.3 mg/dL (8.5-10.1) Glucose (Fingerstick) 122 mg/dL (70-99) Problem List Problems Medical Problems: (1) Pneumonia Status: Acute (2) Sepsis Status: Acute Assessment/Plan TF for malnutrition supportive care Justicifation of Admission Dx: Justifications for Admission: Justification of Admission Dx: Yes Comminuty Aquired Pneumonia: Med-High Risk Pt Sepsis: Infection MAXIMILIANO GREENBERG COMPUTERIZED MILL MILL RECORDER Oct 23, 2019 10:54
--- NOTE | 2019-10-23 12:32 | PDOC ---
Subjective: Subjective: He asks if I can come back later - needs to get on the commode. Objective: Objective: Spoke w/ daughter in the [place] - 7 stools since she has been here this morning. Other notes indicate C Diff negative - I don't see these results. Vital Signs: Vital Signs Date Time Temp Pulse Resp B/P (MAP) Pulse Ox O2 Delivery O2 Flow Rate FiO2 10/23/19 11:00 98.1 110 20 98/60 (73) 95 Room Air 98.1 Labs: Laboratory Tests Test 10/22/19 12:35 10/22/19 17:16 10/22/19 20:49 10/23/19 05:30 Stool Campylobacter PCR Negative Stool E. coli Shiga Toxins (PCR) Negative Stool Salmonella PCR Negative Stool Shigella PCR Negative Glucose (Fingerstick) 114 mg/dL 154 mg/dL White Blood Count 14.3 x10^3/uL Red Blood Count 2.78 x10^6/uL Hemoglobin 7.0 g/dL Hematocrit 21.7 % Mean Corpuscular Volume 78 fL Mean Corpuscular Hemoglobin 25 pg Mean Corpuscular Hemoglobin Concent 32 g/dL Red Cell Distribution Width 21.5 % Platelet Count 316 x10^3/uL Neutrophils (%) (Auto) 83 % Lymphocytes (%) (Auto) 7 % Monocytes (%) (Auto) 10 % Eosinophils (%) (Auto) 0 % Basophils (%) (Auto) 0 % Neutrophils # (Auto) 11.9 x10^3/uL Lymphocytes # (Auto) 1.0 x10^3/uL Monocytes # (Auto) 1.4 x10^3/uL Eosinophils # (Auto) 0.0 x10^3/uL Basophils # (Auto) 0.0 x10^3/uL Sodium Level 133 mmol/L Potassium Level 4.0 mmol/L Chloride Level 101 mmol/L Carbon Dioxide Level 25 mmol/L Anion Gap 7 Blood Urea Nitrogen 11 mg/dL Creatinine 0.9 mg/dL Estimated GFR (Cockcroft-Gault) 108.5 Glucose Level 158 mg/dL Calcium Level 7.3 mg/dL Test 10/23/19 07:19 10/23/19 11:50 Glucose (Fingerstick) 122 mg/dL 127 mg/dL Imaging: CT C/A/P Impression: Decreased size of the necrotic pancreas. Mildly to moderately increased size of the collection extending from pancreatic tail to the left subdiaphragmatic region. Moderate quantity of ascites. Greater amount of ascites is noted in the interval. Left posterior basilar loculated pleural effusion with adjacent atelectatic consolidation. Considering the pleural thickening evident at the left posterior basilar aspect but the pleural effusion, possible empyema drainage. Diffuse heterogeneous low attenuation of the liver is new in the interval. Portal vein is diminutive. Correlate for underlying inflammatory process. Findings may partly due to fatty infiltration of the liver although the findings are more evident since prior exam. Portal vein is diminutive in size but similar to the prior exam. Colonic wall edema is seen in the interval. Correlate for underlying colitis. No obstruction. Decompressed vena cava. Cardiomegaly with hydration status. PE: GEN: chronically ill, staff present to help to commode NEURO/PSYCH: A & O 3 A/P: H/p pancreatic necrosectomy Diarrhea -- Will return later w/ Dr. Coker, also review CT. Justicifation of Admission Dx: Justifications for Admission: Justification of Admission Dx: Yes Comminuty Aquired Pneumonia: Med-High Risk Pt Sepsis: Infection PAXTON ALEXANDER Oct 23, 2019 12:32
--- NOTE | 2019-10-23 14:12 | NUR ---
SS following up with discharge planning. SS reviewed pt chart and discussed with pt RN. Pt is currently on room air. Pt has J-Tube and on IV Zosyn. PT/OT ordered. SS will continue to follow for discharge planning.
[2019-10-23] MEDS: VANCOMYCIN 125 MG/2.5 ML ORAL SOLUTION. JT SCH ×2 (17:02→20:17)
[2019-10-23 18:17] LABS: HEMATOCRIT 26.8 % (39.0-53.0); HEMOGLOBIN 8.8 g/dL (13.0-17.5)
[2019-10-23] MEDS: MORPHINE SULFATE 2 MG/ML VIAL. IV PRN (20:08)
[2019-10-23] MEDS: INSULIN GLARGINE SYRINGE. SQ SCH ×2 (21:00→21:11)
[2019-10-23] MEDS: PSYLLIUM HUSK (SUGAR FREE) 1 PKT PACKET PO SCH (21:00)
[2019-10-23] MEDS: traZODone 50 MG TABLET. PO SCH (22:22)
--- NOTE | 2019-10-23 23:37 | NUR ---
Jevity 1.5 enteral feedings begun at 2210 after auscultation of PEG placement. Rate 30 mls/hr with 100cc H2O flush Q4. Patient tolerating well. ABD pad dressing at RLQ abdomen changed d/t saturation with bilious drainage.
[2019-10-24] MEDS: PIPERACILLIN/TAZOBACTAM 3.375 GM in IV NORMAL SALINE 50ML 50 ML IV SCH ×3 (00:27→12:08)
[2019-10-24] MEDS: MORPHINE SULFATE 2 MG/ML VIAL. IV PRN (00:28)
[2019-10-24] MEDS: oxyCODONE IR 5 MG TABLET PO PRN ×3 (01:57→21:18)
[2019-10-24 02:12] VITALS: BP 100/64
[2019-10-24] MEDS ORDERED: IV NORMAL SALINE 1000ML BAG 1,000 ML IV ONE (03:00)
[2019-10-24] MEDS: MORPHINE SULFATE 4 MG/ML VIAL. IV PRN ×5 (03:35→21:20)
--- NOTE | 2019-10-24 04:38 | NUR ---
Pt complained of feeling extremely bloated at 0330. Jevity rate decreased to 20 mls/hr.
[2019-10-24 07:00] VITALS: BP 99/68
[2019-10-24] MEDS: busPIRone 10 MG TABLET. PO SCH ×2 (07:30→09:36)
[2019-10-24] MEDS: INSULIN LISPRO 300 UNITS/3 ML VIAL. SQ SCH ×4 (07:30→21:00)
[2019-10-24] MEDS: PANTOPRAZOLE 40 MG TABLET.DR. PO SCH (08:10)
[2019-10-24] MEDS: FERROUS SULFATE 325 MG TABLET. PO SCH ×2 (08:11→18:38)
[2019-10-24] MEDS: VANCOMYCIN 125 MG/2.5 ML ORAL SOLUTION. JT SCH ×4 (08:11→21:23)
--- NOTE | 2019-10-24 08:40 | PDOC ---
PULMONARY PROGRESS NOTES Subjective Patient continues to be short of air experiencing abdominal pain some nausea Vitals Vital Signs Date Time Temp Pulse Resp B/P (MAP) Pulse Ox O2 Delivery O2 Flow Rate FiO2 10/24/19 07:35 Room Air 10/24/19 04:18 20 99 10/24/19 02:12 98.6 120 100/64 (76) 98.6 ROS: No Chest Pain, No Increase Cough General: Alert Lungs: Clear Cardiovascular: S1, S2 Abdomen: Soft, Other (Diffuse tenderness) Extremities: Other Labs Laboratory Tests Test 10/22/19 08:45 10/22/19 10:10 10/22/19 11:43 10/22/19 12:35 White Blood Count 18.7 x10^3/uL (4.0-11.0) Red Blood Count 3.46 x10^6/uL (4.30-5.70) Hemoglobin 8.6 g/dL (13.0-17.5) Hematocrit 27.1 % (39.0-53.0) Mean Corpuscular Volume 78 fL (79-100) Mean Corpuscular Hemoglobin 25 pg (25-35) Mean Corpuscular Hemoglobin Concent 32 g/dL (31-37) Red Cell Distribution Width 21.8 % (11.5-14.5) Platelet Count 380 x10^3/uL (140-400) Neutrophils (%) (Auto) 91 % (31-73) Lymphocytes (%) (Auto) 3 % (24-48) Monocytes (%) (Auto) 6 % (0-9) Eosinophils (%) (Auto) 0 % (0-3) Basophils (%) (Auto) 1 % (0-3) Neutrophils # (Auto) 17.0 x10^3/uL (1.8-7.7) Lymphocytes # (Auto) 0.5 x10^3/uL (1.0-4.8) Monocytes # (Auto) 1.1 x10^3/uL (0.0-1.1) Eosinophils # (Auto) 0.0 x10^3/uL (0.0-0.7) Basophils # (Auto) 0.1 x10^3/uL (0.0-0.2) Sodium Level 133 mmol/L (136-145) Potassium Level 4.2 mmol/L (3.5-5.1) Chloride Level 100 mmol/L (98-107) Carbon Dioxide Level 27 mmol/L (21-32) Anion Gap 6 (6-14) Blood Urea Nitrogen 14 mg/dL (8-26) Creatinine 0.9 mg/dL (0.7-1.3) Estimated GFR (Cockcroft-Gault) 108.5 Glucose Level 117 mg/dL (70-99) Hemoglobin A1c 7.1 % (4.8-5.6) Calcium Level 7.6 mg/dL (8.5-10.1) Iron Level 25 ug/dL (65-175) Total Iron Binding Capacity 76 ug/dL (250-450) Iron Saturation 33 % (15-34) NC-Urs-C-Type Natriuretic Peptide 834 pg/mL (0-124) Procalcitonin 0.33 ng/mL (0.00-0.10) Thyroid Stimulating Hormone (TSH) 2.029 uIU/mL (0.358-3.74) Cortisol AM Sample 29.4 ug/dL (4.3-22.4) Urine Collection Type Unknown Urine Color Demi Urine Clarity Clear Urine pH 6.0 (<5.0-8.0) Urine Specific [place] 1.020 (1.000-1.030) Urine Protein 30 mg/dL (NEG-TRACE) Urine Glucose (UA) Negative mg/dL (NEG) Urine Ketones (Stick) Negative mg/dL (NEG) Urine Blood Large (NEG) Urine Nitrite Negative (NEG) Urine Bilirubin Small (NEG) Urine Urobilinogen Dipstick 0.2 mg/dL (0.2 mg/dL) Urine Leukocyte Esterase Negative (NEG) Urine RBC >40 /HPF (0-2) Urine WBC 0 /HPF (0-4) Urine Squamous Epithelial Cells Occ /LPF Urine Bacteria 0 /HPF (0-FEW) Glucose (Fingerstick) 134 mg/dL (70-99) Stool Campylobacter PCR Negative (NEGATIVE) Stool E. coli Shiga Toxins (PCR) Negative (NEGATIVE) Stool Salmonella PCR Negative (NEGATIVE) Stool Shigella PCR Negative (NEGATIVE) Test 10/22/19 17:16 10/22/19 20:49 10/23/19 05:30 10/23/19 07:19 Glucose (Fingerstick) 114 mg/dL (70-99) 154 mg/dL (70-99) 122 mg/dL (70-99) White Blood Count 14.3 x10^3/uL (4.0-11.0) Red Blood Count 2.78 x10^6/uL (4.30-5.70) Hemoglobin 7.0 g/dL (13.0-17.5) Hematocrit 21.7 % (39.0-53.0) Mean Corpuscular Volume 78 fL (79-100) Mean Corpuscular Hemoglobin 25 pg (25-35) Mean Corpuscular Hemoglobin Concent 32 g/dL (31-37) Red Cell Distribution Width 21.5 % (11.5-14.5) Platelet Count 316 x10^3/uL (140-400) Neutrophils (%) (Auto) 83 % (31-73) Lymphocytes (%) (Auto) 7 % (24-48) Monocytes (%) (Auto) 10 % (0-9) Eosinophils (%) (Auto) 0 % (0-3) Basophils (%) (Auto) 0 % (0-3) Neutrophils # (Auto) 11.9 x10^3/uL (1.8-7.7) Lymphocytes # (Auto) 1.0 x10^3/uL (1.0-4.8) Monocytes # (Auto) 1.4 x10^3/uL (0.0-1.1) Eosinophils # (Auto) 0.0 x10^3/uL (0.0-0.7) Basophils # (Auto) 0.0 x10^3/uL (0.0-0.2) Sodium Level 133 mmol/L (136-145) Potassium Level 4.0 mmol/L (3.5-5.1) Chloride Level 101 mmol/L (98-107) Carbon Dioxide Level 25 mmol/L (21-32) Anion Gap 7 (6-14) Blood Urea Nitrogen 11 mg/dL (8-26) Creatinine 0.9 mg/dL (0.7-1.3) Estimated GFR (Cockcroft-Gault) 108.5 Glucose Level 158 mg/dL (70-99) Calcium Level 7.3 mg/dL (8.5-10.1) Test 10/23/19 11:50 10/23/19 16:45 10/23/19 18:10 10/23/19 20:43 Glucose (Fingerstick) 127 mg/dL (70-99) 116 mg/dL (70-99) 121 mg/dL (70-99) Hemoglobin 8.8 g/dL (13.0-17.5) Hematocrit 26.8 % (39.0-53.0) Mean Corpuscular Hemoglobin Concent 33 g/dL (31-37) Test 10/24/19 07:09 Glucose (Fingerstick) 117 mg/dL (70-99) Laboratory Tests Test 10/23/19 11:50 10/23/19 16:45 10/23/19 18:10 10/23/19 20:43 Glucose (Fingerstick) 127 mg/dL (70-99) 116 mg/dL (70-99) 121 mg/dL (70-99) Hemoglobin 8.8 g/dL (13.0-17.5) Hematocrit 26.8 % (39.0-53.0) Mean Corpuscular Hemoglobin Concent 33 g/dL (31-37) Test 10/24/19 07:09 Glucose (Fingerstick) 117 mg/dL (70-99) Medications Active Scripts Medications Dose Route/Sig Max Daily Dose Days Date Category Dose Instructions Buspirone Hcl 10 Mg Tablet 1 Tab PO BIDACBL 10/21/19 Reported Alprazolam 0.5 Mg Tablet 1 Tab PO HS 10/16/19 Reported Acetaminophen 500 Mg Tablet 1 Tab PO PRN Q6HRS PRN 15 10/16/19 Reported Levemir (Insulin Detemir) 100 Unit/1 Ml Vial 5 Unit SQ DAILY PRN 10/16/19 Reported 5 units daily in morning if bs greater than 200. Oxycodone Hcl Immed.release (Oxycodone Hcl) 15 Mg Tablet 15 Mg PO PRN Q6HRS PRN 10/16/19 Reported Ferrous Sulfate 325 Mg Tablet 65 Mg PO BID 10/16/19 Reported Metformin Hcl 500 Mg Tablet 500 Mg PO BIDWMEALS 10/16/19 Reported Amlodipine Besylate 10 Mg Tablet 10 Mg PO DAILY 10/16/19 Reported Pantoprazole Sodium (Pantoprazole Sodium) 40 Mg Tablet.dr 40 Mg PO DAILYAC 08/15/19 Reported Trazodone Hcl 50 Mg Tablet 1 Tab PO QHS 08/15/19 Reported Furosemide 20 Mg Tablet 1 Tab PO DAILY 08/15/19 Reported Gabapentin (Gabapentin) 100 Mg Capsule 100 Mg PO TID 08/15/19 Reported Metoprolol Tartrate 100 Mg Tablet 1 Tab PO BID 08/15/19 Reported Melatonin 3 Mg Tablet 2 Tab PO QHS 08/15/19 Reported Impression . MPRESSION: 1. Abnormal x-ray revealing possible atelectasis, infiltrate in the left lower base. 2. Right upper quadrant pain. 3. Leukocytosis. 4. Diarrhea. 5. Status post exploratory laparotomy with pancreatic necrosectomy, cholecystectomy, gastrostomy tube placement, tracheotomy. 6. Hyponatremia. 7. Hepatitis B. 8. Generalized weakness. 9. Small left-sided effusion. CT report Impression: Decreased size of the necrotic pancreas. Mildly to moderately increased size of the collection extending from pancreatic tail to the left subdiaphragmatic region. Moderate quantity of ascites. Greater amount of ascites is noted in the interval. Left posterior basilar loculated pleural effusion with adjacent atelectatic consolidation. Considering the pleural thickening evident at the left posterior basilar aspect but the pleural effusion, possible empyema drainage. Diffuse heterogeneous low attenuation of the liver is new in the interval. Portal vein is diminutive. Correlate for underlying inflammatory process. Findings may partly due to fatty infiltration of the liver although the findings are more evident since prior exam. Portal vein is diminutive in size but similar to the prior exam. Colonic wall edema is seen in the interval. Correlate for underlying colitis. No obstruction. Decompressed vena cava. Cardiomegaly with hydration status. Plan . CT chest reviewed not enough fluid to perform thoracentesis Treat for pneumonia Incentive spirometry Follow surgery input, very complex situation. Empiric DESTINI MATOS MD Oct 24, 2019 08:40
--- NOTE | 2019-10-24 08:51 | PDOC ---
PROGRESS NOTES Chief Complaint Chief Complaint A/P: RUQ abdominal pain - with recent h/o gallstone pancreatitis, will obtain abdominal US, consult GI and general surgery, well known to both services. CT abdomen/pelvis with significant ascites Leukocytosis - with tachcardia he meets SIRS criteria, given IVF and empiric levaquin for sepsis. I do not see signs of pneumonia. will f/u cultures, check stool Diarrhea - will collect stool, check for c. 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 will obtain CT chest/abd/pelvis with contrast Hyperglycemia - cont insulin FEN - General diet PPX - lovenox FULL CODE Dispo - inpatient CVC. Low threshold for ICU transfer. History of Present Illness History of Present Illness Mr Mata is a 49yo M w/ PMHx pancreatitis s/p ex-lap with pancreatic necrose ctomy, gastrostomy tube placement, s/p tracheostomy, hepatitis B who returns to the hospital with his from home c/o diarrhea and RUQ pain that began on 10/21/2019. He was hospitalized for what was ultimately diagnosed as gallstone pancreatitis 06/11/2019-07/22/2019 [underwent hemodialysis for renal failure, stopped 07/04/2019, on 06/22/2019 is s/p ex-lap with pancreatic necrosectomy, cholecystostomy tube placement, gastrostomy tube placement, 5 drains, 1.5L ascites drained, and s/p tracheostomy at that time] and discharged to [facility] for further recovery. He reports he has been recovering at home with his . Has been off antibio tics since 07/31/2019. He has been short of breath but that is no different than it has been for the past 2 months. No cough no recent sick contacts. He is lost 60 pounds since prior to his May hospitalization. Labs: WBC 19.4, Hb 8.6, platelets 456, NA 131, K4.6, BUN 17, CR 0.9, glucose 130, lactic acid 2.2, albumin 1.8, alkaline phosphatase 283, calcium 7.9 lipase normal. CXR interpreted as atelectasis versus left lower lobe infiltrate, was dosed with Levaquin in ED. BP 98/54. Admitted for further care. 10/22: Overnight still with multiple BM. Had one accident with watery BM this morning. WBC 14.3 Hb 7 platelets 316, NA 133. Discussed with IR his left-sided pleural effusion loculations much smaller the rim is even smaller seems to be healing, but his abdominal ascites is significant and there is drainage. Tolerated tube feeds overnight well his appetite is low this morning. BP improved after decreasing his oxycodone dosing. He would like to stop taking gabapentin Hb to 8.8 from 7 after 1 u PRBC. Having some back muscle spasms and pain. Overnight had bloating with his tube feeds. [place] Melgoza notes the wrong port has been used. Instructed patient and nursing on using jejunal port for feeding, not gastric port. Plan: Feed through J port Lidoderm and diclofenac for back pain Vitals Vitals Vital Signs Date Time Temp Pulse Resp B/P (MAP) Pulse Ox O2 Delivery O2 Flow Rate FiO2 10/24/19 07:35 Room Air 10/24/19 07:00 98.0 106 22 99/68 (78) 96 98.0 Physical Exam General: Cooperative, No acute distress Heart: Regular rate, Normal S1, Normal S2 Lungs: Clear Abdomen: Soft, Other (distended) Extremities: No clubbing, No cyanosis, No edema, Normal pulses, No tenderness/swelling Skin: No rashes, No breakdown, No significant lesion Labs LABS Laboratory Tests Test 10/23/19 11:50 10/23/19 16:45 10/23/19 18:10 10/23/19 20:43 Glucose (Fingerstick) 127 mg/dL (70-99) 116 mg/dL (70-99) 121 mg/dL (70-99) Hemoglobin 8.8 g/dL (13.0-17.5) Hematocrit 26.8 % (39.0-53.0) Mean Corpuscular Hemoglobin Concent 33 g/dL (31-37) Test 10/24/19 07:09 Glucose (Fingerstick) 117 mg/dL (70-99) Assessment and Plan Assessmemt and Plan Problems Medical Problems: (1) Pneumonia Status: Acute (2) Sepsis Status: Acute Comment Review of Relevant I have reviewed the following items alexandra (where applicable) has been applied. Labs Laboratory Tests Test 10/22/19 10:10 10/22/19 11:43 10/22/19 12:35 10/22/19 17:16 Urine Collection Type Unknown Urine Color Demi Urine Clarity Clear Urine pH 6.0 (<5.0-8.0) Urine Specific [place] 1.020 (1.000-1.030) Urine Protein 30 mg/dL (NEG-TRACE) Urine Glucose (UA) Negative mg/dL (NEG) Urine Ketones (Stick) Negative mg/dL (NEG) Urine Blood Large (NEG) Urine Nitrite Negative (NEG) Urine Bilirubin Small (NEG) Urine Urobilinogen Dipstick 0.2 mg/dL (0.2 mg/dL) Urine Leukocyte Esterase Negative (NEG) Urine RBC >40 /HPF (0-2) Urine WBC 0 /HPF (0-4) Urine Squamous Epithelial Cells Occ /LPF Urine Bacteria 0 /HPF (0-FEW) Glucose (Fingerstick) 134 mg/dL (70-99) 114 mg/dL (70-99) Stool Campylobacter PCR Negative (NEGATIVE) Stool E. coli Shiga Toxins (PCR) Negative (NEGATIVE) Stool Salmonella PCR Negative (NEGATIVE) Stool Shigella PCR Negative (NEGATIVE) Test 10/22/19 20:49 10/23/19 05:30 10/23/19 07:19 10/23/19 11:50 Glucose (Fingerstick) 154 mg/dL (70-99) 122 mg/dL (70-99) 127 mg/dL (70-99) White Blood Count 14.3 x10^3/uL (4.0-11.0) Red Blood Count 2.78 x10^6/uL (4.30-5.70) Hemoglobin 7.0 g/dL (13.0-17.5) Hematocrit 21.7 % (39.0-53.0) Mean Corpuscular Volume 78 fL (79-100) Mean Corpuscular Hemoglobin 25 pg (25-35) Mean Corpuscular Hemoglobin Concent 32 g/dL (31-37) Red Cell Distribution Width 21.5 % (11.5-14.5) Platelet Count 316 x10^3/uL (140-400) Neutrophils (%) (Auto) 83 % (31-73) Lymphocytes (%) (Auto) 7 % (24-48) Monocytes (%) (Auto) 10 % (0-9) Eosinophils (%) (Auto) 0 % (0-3) Basophils (%) (Auto) 0 % (0-3) Neutrophils # (Auto) 11.9 x10^3/uL (1.8-7.7) Lymphocytes # (Auto) 1.0 x10^3/uL (1.0-4.8) Monocytes # (Auto) 1.4 x10^3/uL (0.0-1.1) Eosinophils # (Auto) 0.0 x10^3/uL (0.0-0.7) Basophils # (Auto) 0.0 x10^3/uL (0.0-0.2) Sodium Level 133 mmol/L (136-145) Potassium Level 4.0 mmol/L (3.5-5.1) Chloride Level 101 mmol/L (98-107) Carbon Dioxide Level 25 mmol/L (21-32) Anion Gap 7 (6-14) Blood Urea Nitrogen 11 mg/dL (8-26) Creatinine 0.9 mg/dL (0.7-1.3) Estimated GFR (Cockcroft-Gault) 108.5 Glucose Level 158 mg/dL (70-99) Calcium Level 7.3 mg/dL (8.5-10.1) Test 10/23/19 16:45 10/23/19 18:10 10/23/19 20:43 10/24/19 07:09 Glucose (Fingerstick) 116 mg/dL (70-99) 121 mg/dL (70-99) 117 mg/dL (70-99) Hemoglobin 8.8 g/dL (13.0-17.5) Hematocrit 26.8 % (39.0-53.0) Mean Corpuscular Hemoglobin Concent 33 g/dL (31-37) Laboratory Tests Test 10/23/19 11:50 10/23/19 16:45 10/23/19 18:10 10/23/19 20:43 Glucose (Fingerstick) 127 mg/dL (70-99) 116 mg/dL (70-99) 121 mg/dL (70-99) Hemoglobin 8.8 g/dL (13.0-17.5) Hematocrit 26.8 % (39.0-53.0) Mean Corpuscular Hemoglobin Concent 33 g/dL (31-37) Test 10/24/19 07:09 Glucose (Fingerstick) 117 mg/dL (70-99) Microbiology 10/21/19 Blood Culture - Preliminary, Resulted NO GROWTH AFTER 2 DAYS Medications Current Medications Sodium Chloride 1,000 ml @ 1,000 mls/hr 1X ONCE IV Last administered on 10/21/19at 18:18; Start 10/21/19 at 18:00; Stop 10/21/19 at 18:59; Status DC Levofloxacin/ Dextrose 150 ml @ 100 mls/hr 1X ONCE IV Last administered on 10/21/19at 19:58; Start 10/21/19 at 19:45; Stop 10/21/19 at 21:14; Status DC Ondansetron HCl (Zofran) 4 mg PRN Q8HRS PRN IV NAUSEA/VOMITING; Start 10/21/19 at 20:30; Stop 10/22/19 at 07:58; Status DC Morphine Sulfate (Morphine Sulfate) 2 mg PRN Q2HR PRN IV PAIN; Start 10/21/19 at 20:30; Stop 10/22/19 at 07:58; Status DC Oxycodone HCl (Roxicodone) 15 mg PRN Q6HRS PRN PO PAIN Last administered on 10/22/19at 05:46; Start 10/21/19 at 21:00; Stop 10/22/19 at 11:30; Status DC Sodium Chloride 1,000 ml @ 1,000 mls/hr 1X ONCE IV Last administered on 10/21/19at 22:18; Start 10/21/19 at 22:30; Stop 10/21/19 at 23:29; Status DC Alprazolam (Xanax) 0.5 mg 1X ONCE PO Last administered on 10/21/19at 23:22; Start 10/21/19 at 23:30; Stop 10/21/19 at 23:31; Status DC Trazodone HCl (Desyrel) 50 mg 1X ONCE PO Last administered on 7/7/20at 23:22; Start 10/21/19 at 23:30; Stop 10/21/19 at 23:31; Status DC Morphine Sulfate (Morphine Sulfate) 2 mg PRN Q4HRS PRN IV MODERATE PAIN Last administered on 10/24/19 00:28; Start 10/22/19 at 08:00; Stop 10/24/19 at 02:44; Status DC Ondansetron HCl (Zofran) 4 mg PRN Q4HRS PRN IV NAUSEA/VOMITING; Start 10/22/19 at 08:00 Acetaminophen (Tylenol) 500 mg PRN Q6HRS PRN PO MILD PAIN / TEMP > 100.3'F Last administered on 10/22/19 09:22; Start 10/22/19 at 08:00 Buspirone HCl (Buspar) 10 mg BIDACBL PO Last administered on 10/22/19 11:17; Start 10/22/19 at 11:30 Ferrous Sulfate (Feosol) 325 mg BIDWMEALS PO Last administered on 10/24/19 08:11; Start 10/22/19 at 09:00 Gabapentin (Neurontin) 100 mg TID PO Last administered on 10/22/19 21:07; Start 10/22/19 at 09:00; Stop 10/23/19 at 11:16; Status DC Pantoprazole Sodium (Protonix) 40 mg DAILYAC PO Last administered on 10/24/19 08:10; Start 10/22/19 at 08:15 Trazodone HCl (Desyrel) 50 mg QHS PO Last administered on 10/23/19at 22:22; Start 10/22/19 at 21:00 Insulin Glargine (Lantus Syringe) 5 unit QHS SQ Last administered on 10/22/19at 21:13; Start 10/22/19 at 21:00 Non-Formulary Medication (Melatonin ) 2 tab QHS PO ; Start 10/22/19 at 21:00; Status UNV Insulin Human Lispro (HumaLOG) 0-7 UNITS TIDACHC SQ ; Start 10/22/19 at 11:30 Dextrose (Dextrose 50%-Water Syringe) 12.5 gm PRN Q15MIN PRN IV SEE COMMENTS; Start 10/22/19 at 08:00 Sodium Chloride 1,000 ml @ 1,000 mls/hr 1X ONCE IV Last administered on 10/22/19at 11:17; Start 10/22/19 at 10:00; Stop 10/22/19 at 10:59; Status DC Lorazepam (Ativan Inj) 1 mg PRN Q5MIN PRN IVP ANXIETY / AGITATION Last administered on 10/22/19at 12:16; Start 10/22/19 at 11:00 Psyllium Hydrophilic Mucilloid (Metamucil Fiber Packet) 1 pkt QHS PO ; Start 10/22/19 at 21:00 Iohexol (Omnipaque 240 Mg/ml) 30 ml 1X ONCE PO Last administered on 10/22/19at 11:00; Start 10/22/19 at 11:00; Stop 10/22/19 at 11:01; Status DC Iohexol (Omnipaque 300 Mg/ml) 75 ml 1X ONCE IV Last administered on 10/22/19at 11:00; Start 10/22/19 at 11:00; Stop 10/22/19 at 11:01; Status DC Info (CONTRAST GIVEN -- Rx MONITORING) 1 each PRN DAILY PRN MC SEE COMMENTS; Start 10/22/19 at 11:15; Stop 10/24/19 at 11:14 Enoxaparin Sodium (Lovenox 40mg Syringe) 40 mg Q24H SQ ; Start 10/22/19 at 12:00; Stop 10/22/19 at 15:51; Status DC Oxycodone HCl (Roxicodone) 5 mg PRN Q6HRS PRN PO MODERATE PAIN 4-6 (USE 1ST) Last administered on 10/24/19at 08:11; Start 10/22/19 at 11:30 Piperacillin Sod/ Tazobactam Sod 3.375 gm/Sodium Chloride 50 ml @ 100 mls/hr Q6HRS IV Last administered on 10/24/19at 06:03; Start 10/22/19 at 16:00 Piperacillin Sod/ Tazobactam Sod (Zosyn Per Pharmacy) 1 each PRN DAILY PRN MC SEE COMMENTS; Start 10/22/19 at 16:00 Vancomycin HCl (Vancomycin Oral Solution) 125 mg [id number] JT Last administered on 10/24/19at 08:11; Start 10/23/19 at 17:00 Sodium Chloride 1,000 ml @ 100 mls/hr 1X ONCE IV Last administered on 02/02at 03:10; Start 10/24/19 at 03:00; Stop 10/24/19 at 12:59 Morphine Sulfate (Morphine Sulfate) 4 mg PRN Q3HRS PRN IV PAIN Last administered on 10/24/19at 03:35; Start 10/24/19 at 03:00 Active Scripts Active Reported Buspirone Hcl 10 Mg Tablet 1 Tab PO BIDACBL Alprazolam 0.5 Mg Tablet 1 Tab PO HS Acetaminophen 500 Mg Tablet 1 Tab PO PRN Q6HRS PRN 15 Days Levemir (Insulin Detemir) 100 Unit/1 Ml Vial 5 Unit SQ DAILY PRN 5 units daily in morning if bs greater than 200. Oxycodone Hcl Immed.release (Oxycodone Hcl) 15 Mg Tablet 15 Mg PO PRN Q6HRS PRN Ferrous Sulfate 325 Mg Tablet 65 Mg PO BID Metformin Hcl 500 Mg Tablet 500 Mg PO BIDWMEALS Amlodipine Besylate 10 Mg Tablet 10 Mg PO DAILY Pantoprazole Sodium (Pantoprazole Sodium) 40 Mg Tablet.dr 40 Mg PO DAILYAC Trazodone Hcl 50 Mg Tablet 1 Tab PO QHS Furosemide 20 Mg Tablet 1 Tab PO DAILY Gabapentin (Gabapentin) 100 Mg Capsule 100 Mg PO TID Metoprolol Tartrate 100 Mg Tablet 1 Tab PO BID Melatonin 3 Mg Tablet 2 Tab PO QHS Vitals/I & O Vital Sign - Last 24 Hours 10/23/19 10/23/19 10/23/19 10/23/19 11:00 13:10 13:39 14:10 Temp 98.1 98.2 98.3 98.1 98.2 98.3 Pulse 110 110 108 Resp 20 16 16 16 B/P (MAP) 98/60 (73) 94/58 94/61 Pulse Ox 95 O2 Delivery Room Air Room Air 10/23/19 10/23/19 10/23/19 10/23/19 14:40 15:00 15:08 15:38 Temp 98.3 98.2 98.3 98.3 98.2 98.3 Pulse 107 106 109 Resp 16 18 16 16 B/P (MAP) 94/61 (72) 97/66 91/65 Pulse Ox 99 O2 Delivery Room Air Room Air 10/23/19 10/23/19 10/23/19 10/23/19 19:49 20:00 20:08 20:13 Temp 98.5 98.5 Pulse 113 Resp 20 B/P (MAP) 106/70 (82) Pulse Ox 99 99 99 O2 Delivery Room Air Room Air Room Air Room Air 10/23/19 10/23/19 10/23/19 10/24/19 20:40 21:12 22:36 00:28 Temp 98.4 98.4 Pulse 105 Resp 18 18 18 18 B/P (MAP) 90/56 (67) Pulse Ox 99 99 99 99 O2 Delivery Room Air Room Air Room Air Room Air 10/24/19 10/24/19 10/24/19 10/24/19 01:16 01:57 02:12 03:09 Temp 98.6 98.6 Pulse 120 Resp 18 20 B/P (MAP) 100/64 (76) Pulse Ox 99 99 99 99 O2 Delivery Room Air Room Air Room Air Room Air 10/24/19 10/24/19 10/24/19 10/24/19 03:35 04:18 07:00 07:35 Temp 98.0 98.0 Pulse 106 Resp 22 B/P (MAP) 99/68 (78) Pulse Ox 99 99 96 O2 Delivery Room Air Room Air Room Air Room Air Intake and Output 10/23/19 10/23/19 10/24/19 15:00 23:00 07:00 Intake Total 300 ml 400 ml 290 ml Output Total 405 ml Balance 300 ml 400 ml -115 ml Nutrition Consultation Dietary Evaluation: Recommendations by RD: Dietary education by RD, Increase Calorie Intake, Protein supplementation, Add supplement feedings Comments: Continue w/ADA diet (blood sugar management) w/magic cup supplement w/dinner and more often if pt likes it; honor food preferences and provide snacks as requested REC tube feedings via G-tube w/ jejunal extension per following: Osmolite 1.5@20 ml/hr, increase 10 ml q8 hrs as tolerated to goal rate 60 ml/hr x12 hrs overnight w/100 ml water flushes q4 hrs during feeding Expected Outcomes/Goals: nutritition intake to meet >75% est needs Interpretation of weight loss: >7.5% in 3 months Malnutrition Findings: Food and Nutrition Intake (Sev: <50% est energy req 5days Weight Status: Appropriate Justicifation of Admission Dx: Justifications for Admission: Justification of Admission Dx: Yes Comminuty Aquired Pneumonia: Med-High Risk Pt Sepsis: Infection JUAN ANTONIO OWUSU MD Oct 24, 2019 08:51
[2019-10-24 11:00] VITALS: BP 95/71
[2019-10-24] MEDS ORDERED: busPIRone 10 MG TABLET. PO PRN (11:45)
--- NOTE | 2019-10-24 11:56 | PDOC ---
SURGICAL PROGRESS NOTE Subjective bloating, nausea with tube feed--d/w nursing--appears was receiving TF via g tube instead of J portion drainage from old drain sites Vital Signs Vital Signs Date Time Temp Pulse Resp B/P (MAP) Pulse Ox O2 Delivery O2 Flow Rate FiO2 10/24/19 11:00 98.1 106 22 95/71 (79) 98 Room Air 98.1 I&O Intake and Output 10/24/19 07:00 Intake Total 990 ml Output Total 405 ml Balance 585 ml Intake Oral 480 ml IV Total 50 ml Tube Feeding 60 ml Blood Product IV Normal Saline Flush 400 ml Output Urine Total 405 ml # Bowel Movements 6 General: Oriented X3, No acute distress Abdomen: Soft, Other (distened, g/j tube in place) Labs Laboratory Tests Test 10/22/19 12:35 10/22/19 17:16 10/22/19 20:49 10/23/19 05:30 Stool Campylobacter PCR Negative (NEGATIVE) Stool E. coli Shiga Toxins (PCR) Negative (NEGATIVE) Stool Salmonella PCR Negative (NEGATIVE) Stool Shigella PCR Negative (NEGATIVE) Glucose (Fingerstick) 114 mg/dL (70-99) 154 mg/dL (70-99) White Blood Count 14.3 x10^3/uL (4.0-11.0) Red Blood Count 2.78 x10^6/uL (4.30-5.70) Hemoglobin 7.0 g/dL (13.0-17.5) Hematocrit 21.7 % (39.0-53.0) Mean Corpuscular Volume 78 fL (79-100) Mean Corpuscular Hemoglobin 25 pg (25-35) Mean Corpuscular Hemoglobin Concent 32 g/dL (31-37) Red Cell Distribution Width 21.5 % (11.5-14.5) Platelet Count 316 x10^3/uL (140-400) Neutrophils (%) (Auto) 83 % (31-73) Lymphocytes (%) (Auto) 7 % (24-48) Monocytes (%) (Auto) 10 % (0-9) Eosinophils (%) (Auto) 0 % (0-3) Basophils (%) (Auto) 0 % (0-3) Neutrophils # (Auto) 11.9 x10^3/uL (1.8-7.7) Lymphocytes # (Auto) 1.0 x10^3/uL (1.0-4.8) Monocytes # (Auto) 1.4 x10^3/uL (0.0-1.1) Eosinophils # (Auto) 0.0 x10^3/uL (0.0-0.7) Basophils # (Auto) 0.0 x10^3/uL (0.0-0.2) Sodium Level 133 mmol/L (136-145) Potassium Level 4.0 mmol/L (3.5-5.1) Chloride Level 101 mmol/L (98-107) Carbon Dioxide Level 25 mmol/L (21-32) Anion Gap 7 (6-14) Blood Urea Nitrogen 11 mg/dL (8-26) Creatinine 0.9 mg/dL (0.7-1.3) Estimated GFR (Cockcroft-Gault) 108.5 Glucose Level 158 mg/dL (70-99) Calcium Level 7.3 mg/dL (8.5-10.1) Test 10/23/19 07:19 10/23/19 11:50 10/23/19 16:45 10/23/19 18:10 Glucose (Fingerstick) 122 mg/dL (70-99) 127 mg/dL (70-99) 116 mg/dL (70-99) Hemoglobin 8.8 g/dL (13.0-17.5) Hematocrit 26.8 % (39.0-53.0) Mean Corpuscular Hemoglobin Concent 33 g/dL (31-37) Test 10/23/19 20:43 10/24/19 07:09 10/24/19 11:49 Glucose (Fingerstick) 121 mg/dL (70-99) 117 mg/dL (70-99) 142 mg/dL (70-99) Laboratory Tests Test 10/23/19 16:45 10/23/19 18:10 10/23/19 20:43 10/24/19 07:09 Glucose (Fingerstick) 116 mg/dL (70-99) 121 mg/dL (70-99) 117 mg/dL (70-99) Hemoglobin 8.8 g/dL (13.0-17.5) Hematocrit 26.8 % (39.0-53.0) Mean Corpuscular Hemoglobin Concent 33 g/dL (31-37) Test 10/24/19 11:49 Glucose (Fingerstick) 142 mg/dL (70-99) Problem List Problems Medical Problems: (1) Pneumonia Status: Acute (2) Sepsis Status: Acute Assessment/Plan feedings per J portion Justicifation of Admission Dx: Justifications for Admission: Justification of Admission Dx: Yes Comminuty Aquired Pneumonia: Med-High Risk Pt Sepsis: Infection MAXIMILIANO GREENBERG [employer]NT Oct 24, 2019 11:56
[2019-10-24] MEDS: DICLOFENAC SODIUM 1% TOPICAL GEL 100GM TUBE. TP SCH ×2 (12:08→21:00)
[2019-10-24] MEDS: LIDOCAINE (700MG/PATCH) PATCH. TD SCH (12:08)
--- NOTE | 2019-10-24 12:23 | PDOC ---
Subjective: Subjective: Feels better after morphine. Two stools today. Objective: Vital Signs: Vital Signs Date Time Temp Pulse Resp B/P (MAP) Pulse Ox O2 Delivery O2 Flow Rate FiO2 10/24/19 11:00 98.1 106 22 95/71 (79) 98 Room Air 98.1 Labs: Laboratory Tests Test 10/23/19 16:45 10/23/19 20:43 10/24/19 07:09 10/24/19 11:49 Glucose (Fingerstick) 116 mg/dL (70-99) 121 mg/dL (70-99) 117 mg/dL (70-99) 142 mg/dL (70-99) PE: GEN: chronically ill LUNGS: CTAB HEART: mildly tachycardic ABD: distended, G-J tubes NEURO/PSYCH: A & O 3 A/P: S/p pancreatic necrosectomy, pseudocyst Diarrhea -- Checked w/ nurse who called lab re: pending C Diff - collected yesterday. Other per Dr. Coker. Justicifation of Admission Dx: Justifications for Admission: Justification of Admission Dx: Yes Comminuty Aquired Pneumonia: Med-High Risk Pt Sepsis: Infection PAXTON ALEXANDER Oct 24, 2019 12:23
--- NOTE | 2019-10-24 12:32 | NUR ---
SS following up with discharge planning. SS reviewed pt chart and discussed with pt RN. Pt is currently on room air. Pt on IV Zosyn. Pt has J tube. PT/OT ordered. OT recommended home with assistance. SS will continue to follow for discharge planning.
[2019-10-24 15:00] VITALS: BP 106/74
[2019-10-24] MEDS: ENOXAPARIN 40 MG/0.4 ML SYRINGE. SQ SCH (17:00)
[2019-10-24 19:00] VITALS: BP 117/60
[2019-10-24] MEDS: PATCH REMOVAL. MC SCH (21:00)
[2019-10-24] MEDS: INSULIN GLARGINE SYRINGE. SQ SCH (21:00)
[2019-10-24] MEDS: PSYLLIUM HUSK (SUGAR FREE) 1 PKT PACKET PO SCH (21:00)
[2019-10-24] MEDS: ONDANSETRON PF 4 MG/2 ML VIAL. IV PRN (21:19)
[2019-10-24] MEDS: traZODone 50 MG TABLET. PO SCH (22:55)
[2019-10-24 22:57] VITALS: BP 103/72
[2019-10-25 02:45] VITALS: BP 103/66
[2019-10-25] MEDS: MORPHINE SULFATE 4 MG/ML VIAL. IV PRN ×5 (02:52→21:14)
[2019-10-25] MEDS: oxyCODONE IR 5 MG TABLET PO PRN ×2 (02:52→21:13)
[2019-10-25 06:52] VITALS: BP 98/71
[2019-10-25] MEDS: PANTOPRAZOLE 40 MG TABLET.DR. PO SCH (07:21)
[2019-10-25] MEDS: INSULIN LISPRO 300 UNITS/3 ML VIAL. SQ SCH ×4 (07:30→21:00)
[2019-10-25] MEDS: LIDOCAINE (700MG/PATCH) PATCH. TD SCH (09:04)
[2019-10-25] MEDS: FERROUS SULFATE 325 MG TABLET. PO SCH ×2 (09:04→16:08)
[2019-10-25] MEDS: VANCOMYCIN 125 MG/2.5 ML ORAL SOLUTION. JT SCH ×4 (09:05→21:13)
[2019-10-25] MEDS: DICLOFENAC SODIUM 1% TOPICAL GEL 100GM TUBE. TP SCH ×2 (09:05→21:00)
[2019-10-25] MEDS: ONDANSETRON PF 4 MG/2 ML VIAL. IV PRN ×2 (09:23→13:23)
[2019-10-25 10:08] VITALS: BP 116/72
--- NOTE | 2019-10-25 10:11 | PDOC ---
PULMONARY PROGRESS NOTES Subjective sob not worse, denies cough, has some abd pain Vitals Vital Signs Date Time Temp Pulse Resp B/P (MAP) Pulse Ox O2 Delivery O2 Flow Rate FiO2 10/25/19 09:15 18 100 Room Air 10/25/19 06:52 98.0 103 98/71 (80) 98.0 ROS: No Chest Pain, No Increase Cough General: Alert Lungs: Clear Cardiovascular: S1, S2 Abdomen: Soft, Other (Diffuse tenderness) Extremities: Other Skin: Warm Labs Laboratory Tests Test 10/23/19 11:35 10/23/19 11:50 10/23/19 16:45 10/23/19 18:10 Clostridium difficile Toxin (PCR) Positive (NEGATIVE) Glucose (Fingerstick) 127 mg/dL (70-99) 116 mg/dL (70-99) Hemoglobin 8.8 g/dL (13.0-17.5) Hematocrit 26.8 % (39.0-53.0) Mean Corpuscular Hemoglobin Concent 33 g/dL (31-37) Test 10/23/19 20:43 10/24/19 07:09 10/24/19 11:49 10/24/19 16:51 Glucose (Fingerstick) 121 mg/dL (70-99) 117 mg/dL (70-99) 142 mg/dL (70-99) 112 mg/dL (70-99) Test 10/24/19 21:11 10/25/19 06:56 Glucose (Fingerstick) 107 mg/dL (70-99) 134 mg/dL (70-99) Laboratory Tests Test 10/24/19 11:49 10/24/19 16:51 10/24/19 21:11 10/25/19 06:56 Glucose (Fingerstick) 142 mg/dL (70-99) 112 mg/dL (70-99) 107 mg/dL (70-99) 134 mg/dL (70-99) Medications Active Scripts Medications Dose Route/Sig Max Daily Dose Days Date Category Dose Instructions Buspirone Hcl 10 Mg Tablet 1 Tab PO BIDACBL 10/21/19 Reported Alprazolam 0.5 Mg Tablet 1 Tab PO HS 10/16/19 Reported Acetaminophen 500 Mg Tablet 1 Tab PO PRN Q6HRS PRN 15 10/16/19 Reported Levemir (Insulin Detemir) 100 Unit/1 Ml Vial 5 Unit SQ DAILY PRN 10/16/19 Reported 5 units daily in morning if bs greater than 200. Oxycodone Hcl Immed.release (Oxycodone Hcl) 15 Mg Tablet 15 Mg PO PRN Q6HRS PRN 10/16/19 Reported Ferrous Sulfate 325 Mg Tablet 65 Mg PO BID 10/16/19 Reported Metformin Hcl 500 Mg Tablet 500 Mg PO BIDWMEALS 10/16/19 Reported Amlodipine Besylate 10 Mg Tablet 10 Mg PO DAILY 10/16/19 Reported Pantoprazole Sodium (Pantoprazole Sodium) 40 Mg Tablet.dr 40 Mg PO DAILYAC 08/15/19 Reported Trazodone Hcl 50 Mg Tablet 1 Tab PO QHS 08/15/19 Reported Furosemide 20 Mg Tablet 1 Tab PO DAILY 08/15/19 Reported Gabapentin (Gabapentin) 100 Mg Capsule 100 Mg PO TID 08/15/19 Reported Metoprolol Tartrate 100 Mg Tablet 1 Tab PO BID 08/15/19 Reported Melatonin 3 Mg Tablet 2 Tab PO QHS 08/15/19 Reported Impression . MPRESSION: 1. Abnormal x-ray revealing possible atelectasis, infiltrate in the left lower base. 2. Right upper quadrant pain. 3. Leukocytosis. improving 4. Diarrhea. 5. Status post exploratory laparotomy with pancreatic necrosectomy, cholecystectomy, gastrostomy tube placement, tracheotomy. 6. Hyponatremia. 7. Hepatitis B. 8. Generalized weakness. 9. Small left-sided effusion. CT report Impression: Decreased size of the necrotic pancreas. Mildly to moderately increased size of the collection extending from pancreatic tail to the left subdiaphragmatic region. Moderate quantity of ascites. Greater amount of ascites is noted in the interval. Left posterior basilar loculated pleural effusion with adjacent atelectatic consolidation. Considering the pleural thickening evident at the left posterior basilar aspect but the pleural effusion, possible empyema drainage. Diffuse heterogeneous low attenuation of the liver is new in the interval. Portal vein is diminutive. Correlate for underlying inflammatory process. Findings may partly due to fatty infiltration of the liver although the findings are more evident since prior exam. Portal vein is diminutive in size but similar to the prior exam. Colonic wall edema is seen in the interval. Correlate for underlying colitis. No obstruction. Decompressed vena cava. Cardiomegaly with hydration status. Plan . CT chest reviewed not enough fluid to perform thoracentesis 02 titration Treat for pneumonia Incentive spirometry Follow surgery input, very complex situation. Empiric abx dvt prophylaxis discussed w CHRIS Shannon MD Oct 25, 2019 10:11
[2019-10-25] MEDS ORDERED: PHENYLEPH/MINERAL OIL/PETROLAT RECTAL OINTMENT TUBE. RC PRN (12:45)
--- NOTE | 2019-10-25 12:47 | PDOC ---
PROGRESS NOTES Chief Complaint Chief Complaint A/P: RUQ abdominal pain - with recent h/o gallstone pancreatitis, will obtain abdominal US, consult GI and general surgery, well known to both services. CT abdomen/pelvis with significant ascites Leukocytosis - with tachcardia he meets SIRS criteria, given IVF and empiric levaquin for sepsis. I do not see signs of pneumonia. will f/u cultures, check stool Diarrhea - will collect stool, check for c. diff given detention antibiotic exposure as well as high WBC H/o recent Severe pancreatitis s/p ex-lap with pancreatic necrosectomy, cholecystostomy tube placement, gastrostomy tube placement, tracheostomy placement, 5 drains, 1.5L ascites drained - likely gallstone pancreatitis Status post tracheostomy - reversed, recovered Hyponatremia - will restart fluids Severe protein calorie malnutrition - would restart G-tube feeds if ok with general surgery, clock smith to see Physician deconditioning - will have PT/OT Hypocalcemia Hepatitis B LLL small effusion - still present. will obtain CT chest/abd/pelvis with contrast Hyperglycemia - cont insulin FEN - General diet PPX - lovenox FULL CODE Dispo - inpatient CVC. Low threshold for ICU transfer. History of Present Illness History of Present Illness Mr Mata is a 49yo M w/ PMHx pancreatitis s/p ex-lap with pancreatic necrose ctomy, gastrostomy tube placement, s/p tracheostomy, hepatitis B who returns to the hospital with his from home c/o diarrhea and RUQ pain that began on 10/21/2019. He was hospitalized for what was ultimately diagnosed as gallstone pancreatitis 06/11/2019-07/22/2019 [underwent hemodialysis for renal failure, stopped 07/04/2019, on 06/22/2019 is s/p ex-lap with pancreatic necrosectomy, cholecystostomy tube placement, gastrostomy tube placement, 5 drains, 1.5L ascites drained, and s/p tracheostomy at that time] and discharged to [facility] for further recovery. He reports he has been recovering at home with his . Has been off antibio tics since 07/31/2019. He has been short of breath but that is no different than it has been for the past 2 months. No cough no recent sick contacts. He is lost 60 pounds since prior to his May hospitalization. Labs: WBC 19.4, Hb 8.6, platelets 456, NA 131, K4.6, BUN 17, CR 0.9, glucose 130, lactic acid 2.2, albumin 1.8, alkaline phosphatase 283, calcium 7.9 lipase normal. CXR interpreted as atelectasis versus left lower lobe infiltrate, was dosed with Levaquin in ED. BP 98/54. Admitted for further care. 10/22: Overnight still with multiple BM. Had one accident with watery BM this morning. WBC 14.3 Hb 7 platelets 316, NA 133. Discussed with IR his left-sided pleural effusion loculations much smaller the rim is even smaller seems to be healing, but his abdominal ascites is significant and there is drainage. Tolerated tube feeds overnight well his appetite is low this morning. BP improved after decreasing his oxycodone dosing. He would like to stop taking gabapentin 10/23: Hb to 8.8 from 7 after 1 u PRBC. Having some back muscle spasms and pain. Overnight had bloating with his tube feeds. [place] Melgoza notes the wrong port has been used. Instructed patient and nursing on using jejunal port for feeding, not gastric port. C. DIFF POSITIVE. Afebrile. Tolerated tube feeds overnight little less diarrhea no response on oral vancomycin. He has some rectal itching. Tachycardia. Blood pressure is a little better. Legs have swollen up. Plan: Feed through J port Lidoderm and diclofenac for back pain Restart metoprolol and lasix Cont vancomycin Rectal hydrocortisone Labs in AM Vitals Vitals Vital Signs Date Time Temp Pulse Resp B/P (MAP) Pulse Ox O2 Delivery O2 Flow Rate FiO2 10/25/19 10:08 98.3 108 20 116/72 (87) 100 Room Air 98.3 Physical Exam General: Oriented X3, No acute distress Heart: Regular rate, Normal S1, Normal S2 Lungs: Clear Abdomen: Soft, Other (distened, g/j tube in place) Extremities: No clubbing, No cyanosis, No edema, Normal pulses, No tenderness/swelling Skin: No rashes, No breakdown, No significant lesion Labs LABS Laboratory Tests Test 10/24/19 16:51 10/24/19 21:11 10/25/19 06:56 10/25/19 11:32 Glucose (Fingerstick) 112 mg/dL (70-99) 107 mg/dL (70-99) 134 mg/dL (70-99) 135 mg/dL (70-99) Assessment and Plan Assessmemt and Plan Problems Medical Problems: (1) Pneumonia Status: Acute (2) Sepsis Status: Acute Comment Review of Relevant I have reviewed the following items alexandra (where applicable) has been applied. Labs Laboratory Tests Test 10/23/19 16:45 10/23/19 18:10 10/23/19 20:43 10/24/19 07:09 Glucose (Fingerstick) 116 mg/dL (70-99) 121 mg/dL (70-99) 117 mg/dL (70-99) Hemoglobin 8.8 g/dL (13.0-17.5) Hematocrit 26.8 % (39.0-53.0) Mean Corpuscular Hemoglobin Concent 33 g/dL (31-37) Test 10/24/19 11:49 10/24/19 16:51 10/24/19 21:11 10/25/19 06:56 Glucose (Fingerstick) 142 mg/dL (70-99) 112 mg/dL (70-99) 107 mg/dL (70-99) 134 mg/dL (70-99) Test 10/25/19 11:32 Glucose (Fingerstick) 135 mg/dL (70-99) Laboratory Tests Test 10/24/19 16:51 10/24/19 21:11 10/25/19 06:56 10/25/19 11:32 Glucose (Fingerstick) 112 mg/dL (70-99) 107 mg/dL (70-99) 134 mg/dL (70-99) 135 mg/dL (70-99) Microbiology 10/21/19 Blood Culture - Preliminary, Resulted NO GROWTH AFTER 3 DAYS Medications Current Medications Sodium Chloride 1,000 ml @ 1,000 mls/hr 1X ONCE IV Last administered on 10/21/19at 18:18; Start 10/21/19 at 18:00; Stop 10/21/19 at 18:59; Status DC Levofloxacin/ Dextrose 150 ml @ 100 mls/hr 1X ONCE IV Last administered on 10/21/19at 19:58; Start 10/21/19 at 19:45; Stop 10/21/19 at 21:14; Status DC Ondansetron HCl (Zofran) 4 mg PRN Q8HRS PRN IV NAUSEA/VOMITING; Start 10/21/19 at 20:30; Stop 10/22/19 at 07:58; Status DC Morphine Sulfate (Morphine Sulfate) 2 mg PRN Q2HR PRN IV PAIN; Start 10/21/19 at 20:30; Stop 10/22/19 at 07:58; Status DC Oxycodone HCl (Roxicodone) 15 mg PRN Q6HRS PRN PO PAIN Last administered on 10/22/19at 05:46; Start 10/21/19 at 21:00; Stop 10/22/19 at 11:30; Status DC Sodium Chloride 1,000 ml @ 1,000 mls/hr 1X ONCE IV Last administered on 10/21/19at 22:18; Start 10/21/19 at 22:30; Stop 10/21/19 at 23:29; Status DC Alprazolam (Xanax) 0.5 mg 1X ONCE PO Last administered on 10/21/19at 23:22; Start 10/21/19 at 23:30; Stop 10/21/19 at 23:31; Status DC Trazodone HCl (Desyrel) 50 mg 1X ONCE PO Last administered on 10/21/19at 23:22; Start 10/21/19 at 23:30; Stop 10/21/19 at 23:31; Status DC Morphine Sulfate (Morphine Sulfate) 2 mg PRN Q4HRS PRN IV MODERATE PAIN Last administered on 10/24/19at 00:28; Start 10/22/19 at 08:00; Stop 10/24/19 at 02:44; Status DC Ondansetron HCl (Zofran) 4 mg PRN Q4HRS PRN IV NAUSEA/VOMITING Last administered on 10/25/19at 09:23; Start 10/22/19 at 08:00 Acetaminophen (Tylenol) 500 mg PRN Q6HRS PRN PO MILD PAIN / TEMP > 100.3'F Last administered on 10/22/19at 09:22; Start 10/22/19 at 08:00 Buspirone HCl (Buspar) 10 mg BIDACBL PO Last administered on 10/22/19at 11:17; Start 10/22/19 at 11:30; Stop 10/24/19 at 11:40; Status DC Ferrous Sulfate (Feosol) 325 mg BIDWMEALS PO Last administered on 10/25/19at 09:04; Start 10/22/19 at 09:00 Gabapentin (Neurontin) 100 mg TID PO Last administered on 10/22/19at 21:07; Start 10/22/19 at 09:00; Stop 10/23/19 at 11:16; Status DC Pantoprazole Sodium (Protonix) 40 mg DAILYAC PO Last administered on 10/25/19at 07:21; Start 10/22/19 at 08:15 Trazodone HCl (Desyrel) 50 mg QHS PO Last administered on 10/24/19at 22:55; Start 10/22/19 at 21:00 Insulin Glargine (Lantus Syringe) 5 unit QHS SQ Last administered on 10/22/19at 21:13; Start 10/22/19 at 21:00 Non-Formulary Medication (Melatonin ) 2 tab QHS PO ; Start 10/22/19 at 21:00; Status UNV Insulin Human Lispro (HumaLOG) 0-7 UNITS TIDACHC SQ ; Start 10/22/19 at 11:30 Dextrose (Dextrose 50%-Water Syringe) 12.5 gm PRN Q15MIN PRN IV SEE COMMENTS; Start 10/22/19 at 08:00 Sodium Chloride 1,000 ml @ 1,000 mls/hr 1X ONCE IV Last administered on 10/22/19at 11:17; Start 10/22/19 at 10:00; Stop 10/22/19 at 10:59; Status DC Lorazepam (Ativan Inj) 1 mg PRN Q5MIN PRN IVP ANXIETY / AGITATION Last administered on 10/22/19at 12:16; Start 10/22/19 at 11:00 Psyllium Hydrophilic Mucilloid (Metamucil Fiber Packet) 1 pkt QHS PO ; Start 10/22/19 at 21:00 Iohexol (Omnipaque 240 Mg/ml) 30 ml 1X ONCE PO Last administered on 10/22/19at 11:00; Start 10/22/19 at 11:00; Stop 10/22/19 at 11:01; Status DC Iohexol (Omnipaque 300 Mg/ml) 75 ml 1X ONCE IV Last administered on 10/22/19at 11:00; Start 10/22/19 at 11:00; Stop 10/22/19 at 11:01; Status DC Info (CONTRAST GIVEN -- Rx MONITORING) 1 each PRN DAILY PRN MC SEE COMMENTS; Start 10/22/19 at 11:15; Stop 10/24/19 at 11:14; Status DC Enoxaparin Sodium (Lovenox 40mg Syringe) 40 mg Q24H SQ ; Start 10/22/19 at 12:00; Stop 10/22/19 at 15:51; Status DC Oxycodone HCl (Roxicodone) 5 mg PRN Q6HRS PRN PO MODERATE PAIN 4-6 (USE 1ST) Last administered on 10/25/19at 02:52; Start 10/22/19 at 11:30 Piperacillin Sod/ Tazobactam Sod 3.375 gm/Sodium Chloride 50 ml @ 100 mls/hr Q6HRS IV Last administered on 10/24/19at 12:08; Start 10/22/19 at 16:00; Stop 10/24/19 at 16:43; Status DC Piperacillin Sod/ Tazobactam Sod (Zosyn Per Pharmacy) 1 each PRN DAILY PRN MC SEE COMMENTS; Start 10/22/19 at 16:00; Stop 10/24/19 at 17:17; Status DC Vancomycin HCl (Vancomycin Oral Solution) 125 mg [id number] Last administered on 10/25/19at 09:05; Start 10/23/19 at 17:00 Sodium Chloride 1,000 ml @ 100 mls/hr 1X ONCE IV Last administered on 10/24/19at 03:10; Start 10/24/19 at 03:00; Stop 10/24/19 at 12:59; Status DC Morphine Sulfate (Morphine Sulfate) 4 mg PRN Q3HRS PRN IV PAIN Last administered on 10/25/19at 09:15; Start 10/24/19 at 03:00 Lidocaine (Lidoderm) 1 patch DAILY TD Last administered on 10/25/19at 09:04; Start 10/24/19 at 12:00 Diclofenac Sodium (Voltaren) 1 devorah BID TP Last administered on 10/25/19at 09:05; Start 10/24/19 at 12:00 Miscellaneous (Lidoderm Patch Removal) 1 ea QHS MC Last administered on 02/02at 21:00; Start 10/24/19 at 21:00 Buspirone HCl (Buspar) 10 mg PRN QID PRN PO anxiety; Start 10/24/19 at 11:45 Enoxaparin Sodium (Lovenox 40mg Syringe) 40 mg Q24H SQ ; Start 10/24/19 at 17:00 Furosemide (Lasix) 20 mg DAILY PO ; Start 10/25/19 at 13:00 Metoprolol Tartrate (Lopressor) 25 mg BID PO ; Start 10/25/19 at 13:00 Phenyleph/Shark Oil/Min Oil/Petrol (Preparation H) 1 devorah PRN QID PRN RC RECTAL PAIN; Start 10/25/19 at 12:45; Status UNV Active Scripts Active Reported Buspirone Hcl 10 Mg Tablet 1 Tab PO BIDACBL Alprazolam 0.5 Mg Tablet 1 Tab PO HS Acetaminophen 500 Mg Tablet 1 Tab PO PRN Q6HRS PRN 15 Days Levemir (Insulin Detemir) 100 Unit/1 Ml Vial 5 Unit SQ DAILY PRN 5 units daily in morning if bs greater than 200. Oxycodone Hcl Immed.release (Oxycodone Hcl) 15 Mg Tablet 15 Mg PO PRN Q6HRS PRN Ferrous Sulfate 325 Mg Tablet 65 Mg PO BID Metformin Hcl 500 Mg Tablet 500 Mg PO BIDWMEALS Amlodipine Besylate 10 Mg Tablet 10 Mg PO DAILY Pantoprazole Sodium (Pantoprazole Sodium) 40 Mg Tablet.dr 40 Mg PO DAILYAC Trazodone Hcl 50 Mg Tablet 1 Tab PO QHS Furosemide 20 Mg Tablet 1 Tab PO DAILY Gabapentin (Gabapentin) 100 Mg Capsule 100 Mg PO TID Metoprolol Tartrate 100 Mg Tablet 1 Tab PO BID Melatonin 3 Mg Tablet 2 Tab PO QHS Vitals/I & O Vital Sign - Last 24 Hours 10/24/19 10/24/19 10/24/19 10/24/19 15:00 19:00 20:00 21:20 Temp 98.1 98.6 98.1 98.6 Pulse 107 112 Resp 22 19 B/P (MAP) 106/74 (85) 117/60 (79) Pulse Ox 98 98 O2 Delivery Room Air Room Air Room Air Room Air 10/24/19 10/24/19 10/24/19 10/25/19 21:50 22:18 22:57 02:45 Temp 98.7 97.7 98.7 97.7 Pulse 107 105 Resp 18 20 B/P (MAP) 103/72 (82) 103/66 (78) Pulse Ox 99 99 O2 Delivery Room Air Room Air Room Air Room Air 10/25/19 10/25/19 10/25/19 10/25/19 02:52 03:52 06:52 08:00 Temp 98.0 98.0 Pulse 103 Resp 20 B/P (MAP) 98/71 (80) Pulse Ox 100 O2 Delivery Room Air Room Air Room Air Room Air 10/25/19 10/25/19 10/25/19 09:15 09:45 10:08 Temp 98.3 98.3 Pulse 108 Resp 18 20 B/P (MAP) 116/72 (87) Pulse Ox 100 100 100 O2 Delivery Room Air Room Air Room Air Intake and Output 10/24/19 10/24/19 10/25/19 15:00 23:00 07:00 Intake Total 240 ml 490 ml 300 ml Output Total 200 ml 100 ml Balance 240 ml 290 ml 200 ml Nutrition Consultation Dietary Evaluation: Recommendations by RD: Dietary education by RD, Increase Calorie Intake, Protein supplementation, Add supplement feedings Comments: Continue w/ADA diet w/supplements as ordered, however ok per RD to liberalize diet as needed to honor food preferences and promote PO intake; obtained dinner order from pt REC adjust TFs to following: Osmolite 1.2@30 ml/hr, increase 10 ml q8 hrs as tolerated to goal rate 60 ml/hr w/100 ml water flushes q4 hrs; feeding and water flushes infusing x12 hours overnight. Clarified TF formula and plan w/RN (Jane) and w/diet office Expected Outcomes/Goals: nutritition intake to meet >75% est needs - not met, goal ongoing Interpretation of weight loss: >7.5% in 3 months Malnutrition Findings: Food and Nutrition Intake (Sev: <50% est energy req 5days Weight Status: Appropriate Justicifation of Admission Dx: Justifications for Admission: Justification of Admission Dx: Yes Comminuty Aquired Pneumonia: Med-High Risk Pt Sepsis: Infection JUAN ANTONIO OWUSU MD Oct 25, 2019 12:47
--- NOTE | 2019-10-25 13:10 | PDOC ---
G I PROGRESS NOTE Subjective Diarrhea. Few other spontaneous complaints. Objective Chronically ill-appearing. Physical Exam Lungs clear. RRR Abdomen soft, feeding tube. Review of Relevant I have reviewed the following items alexandra (where applicable) has been applied. Labs Laboratory Tests Test 10/23/19 16:45 10/23/19 18:10 10/23/19 20:43 10/24/19 07:09 Glucose (Fingerstick) 116 mg/dL (70-99) 121 mg/dL (70-99) 117 mg/dL (70-99) Hemoglobin 8.8 g/dL (13.0-17.5) Hematocrit 26.8 % (39.0-53.0) Mean Corpuscular Hemoglobin Concent 33 g/dL (31-37) Test 10/24/19 11:49 10/24/19 16:51 10/24/19 21:11 10/25/19 06:56 Glucose (Fingerstick) 142 mg/dL (70-99) 112 mg/dL (70-99) 107 mg/dL (70-99) 134 mg/dL (70-99) Test 10/25/19 11:32 Glucose (Fingerstick) 135 mg/dL (70-99) Laboratory Tests Test 10/24/19 16:51 10/24/19 21:11 10/25/19 06:56 10/25/19 11:32 Glucose (Fingerstick) 112 mg/dL (70-99) 107 mg/dL (70-99) 134 mg/dL (70-99) 135 mg/dL (70-99) Microbiology 10/21/19 Blood Culture - Preliminary, Resulted NO GROWTH AFTER 3 DAYS C.diff has returned positive. Vitals/I & O Vital Sign - Last 24 Hours 10/24/19 10/24/19 10/24/19 10/24/19 15:00 19:00 20:00 21:20 Temp 98.1 98.6 98.1 98.6 Pulse 107 112 Resp 22 19 B/P (MAP) 106/74 (85) 117/60 (79) Pulse Ox 98 98 O2 Delivery Room Air Room Air Room Air Room Air 10/24/19 10/24/19 10/24/19 10/25/19 21:50 22:18 22:57 02:45 Temp 98.7 97.7 98.7 97.7 Pulse 107 105 Resp 18 20 B/P (MAP) 103/72 (82) 103/66 (78) Pulse Ox 99 99 O2 Delivery Room Air Room Air Room Air Room Air 10/25/19 10/25/19 10/25/19 10/25/19 02:52 03:52 06:52 08:00 Temp 98.0 98.0 Pulse 103 Resp 20 B/P (MAP) 98/71 (80) Pulse Ox 100 O2 Delivery Room Air Room Air Room Air Room Air 10/25/19 10/25/19 10/25/19 09:15 09:45 10:08 Temp 98.3 98.3 Pulse 108 Resp 18 20 20 B/P (MAP) 116/72 (87) Pulse Ox 100 100 100 O2 Delivery Room Air Room Air Room Air Intake and Output 10/24/19 10/24/19 10/25/19 15:00 23:00 07:00 Intake Total 240 ml 490 ml 300 ml Output Total 200 ml 100 ml Balance 240 ml 290 ml 200 ml Problem List Problems Medical Problems: (1) Pneumonia Status: Acute (2) Sepsis Status: Acute Assessment C.difficile mediated diarrhea. Cholelithiasis. Sequelae of acute biliary pancreatitis; pseudocyst remains. Plan of Care Note Continue vanc, feedings, etc. Justicifation of Admission Dx: Justifications for Admission: Justification of Admission Dx: Yes Comminuty Aquired Pneumonia: Med-High Risk Pt Sepsis: Infection MARIA L CRUZ MD Oct 25, 2019 13:10
[2019-10-25] MEDS: METOPROLOL TART IMMED RELEASE 25 MG TABLET. PO SCH ×2 (13:23→21:12)
[2019-10-25] MEDS: FUROSEMIDE 20 MG TABLET PO SCH (13:23)
--- NOTE | 2019-10-25 13:59 | PDOC ---
SURGICAL PROGRESS NOTE Subjective Pt feels a little better, loose stools Vital Signs Vital Signs Date Time Temp Pulse Resp B/P (MAP) Pulse Ox O2 Delivery O2 Flow Rate FiO2 10/25/19 13:23 108 116/72 10/25/19 13:22 18 100 Room Air 10/25/19 10:08 98.3 98.3 I&O Intake and Output 10/25/19 07:00 Intake Total 1030 ml Output Total 300 ml Balance 730 ml Intake Oral 830 ml Tube Feeding 200 ml Output Urine Total 300 ml # Voids 2 # Bowel Movements 2 General: Alert, Oriented X3, Cooperative, mild distress Abdomen: Soft, Other (distended, min TTP, leilani some tube feeds) Labs Laboratory Tests Test 10/23/19 16:45 10/23/19 18:10 10/23/19 20:43 10/24/19 07:09 Glucose (Fingerstick) 116 mg/dL (70-99) 121 mg/dL (70-99) 117 mg/dL (70-99) Hemoglobin 8.8 g/dL (13.0-17.5) Hematocrit 26.8 % (39.0-53.0) Mean Corpuscular Hemoglobin Concent 33 g/dL (31-37) Test 10/24/19 11:49 10/24/19 16:51 10/24/19 21:11 10/25/19 06:56 Glucose (Fingerstick) 142 mg/dL (70-99) 112 mg/dL (70-99) 107 mg/dL (70-99) 134 mg/dL (70-99) Test 10/25/19 11:32 Glucose (Fingerstick) 135 mg/dL (70-99) Laboratory Tests Test 10/24/19 16:51 10/24/19 21:11 10/25/19 06:56 10/25/19 11:32 Glucose (Fingerstick) 112 mg/dL (70-99) 107 mg/dL (70-99) 134 mg/dL (70-99) 135 mg/dL (70-99) Problem List Problems Medical Problems: (1) Pneumonia Status: Acute (2) Sepsis Status: Acute Assessment/Plan c diff, severe pancreatitis on oral vanc cont tube feeds secondary to pt's severe malnutrition Justicifation of Admission Dx: Justifications for Admission: Justification of Admission Dx: Yes Comminuty Aquired Pneumonia: Med-High Risk Pt Sepsis: Infection KARLA CALL MD Oct 25, 2019 13:58
[2019-10-25 15:01] VITALS: BP 113/81
[2019-10-25] MEDS: ENOXAPARIN 40 MG/0.4 ML SYRINGE. SQ SCH (16:08)
[2019-10-25 19:24] VITALS: BP 98/78
[2019-10-25] MEDS: PATCH REMOVAL. MC SCH (21:00)
[2019-10-25] MEDS: PSYLLIUM HUSK (SUGAR FREE) 1 PKT PACKET PO SCH (21:00)
[2019-10-25] MEDS: INSULIN GLARGINE SYRINGE. SQ SCH (21:00)
[2019-10-25] MEDS: LACTOBACILLUS RHAMNOSUS GG 1 CAPSULE. PO SCH (21:12)
[2019-10-25 22:30] VITALS: BP 92/62
[2019-10-25] MEDS: traZODone 50 MG TABLET. PO SCH (23:19)
[2019-10-26 02:43] VITALS: BP 86/61
[2019-10-26] MEDS: MORPHINE SULFATE 4 MG/ML VIAL. IV PRN ×5 (03:52→21:52)
[2019-10-26 07:13] VITALS: BP 97/63
[2019-10-26] MEDS: INSULIN LISPRO 300 UNITS/3 ML VIAL. SQ SCH ×4 (07:30→21:00)
[2019-10-26] MEDS: PANTOPRAZOLE 40 MG TABLET.DR. PO SCH (08:35)
[2019-10-26] MEDS: FERROUS SULFATE 325 MG TABLET. PO SCH ×2 (08:35→17:53)
[2019-10-26] MEDS: LACTOBACILLUS RHAMNOSUS GG 1 CAPSULE. PO SCH ×2 (08:36→21:52)
[2019-10-26] MEDS: VANCOMYCIN 125 MG/2.5 ML ORAL SOLUTION. JT SCH ×4 (08:37→21:54)
[2019-10-26] MEDS: DICLOFENAC SODIUM 1% TOPICAL GEL 100GM TUBE. TP SCH ×2 (09:00→21:00)
[2019-10-26] MEDS: FUROSEMIDE 20 MG TABLET PO SCH (09:00)
[2019-10-26 10:08] VITALS: BP 94/60
--- NOTE | 2019-10-26 10:16 | PDOC ---
PULMONARY PROGRESS NOTES Subjective denies sob, has occ cough, bloated Vitals Vital Signs Date Time Temp Pulse Resp B/P (MAP) Pulse Ox O2 Delivery O2 Flow Rate FiO2 10/26/19 07:13 97.5 94 18 97/63 (74) 99 Room Air 97.5 ROS: No Chest Pain, No Increase Cough General: Alert Lungs: Clear Cardiovascular: S1, S2 Abdomen: Soft, Non-tender, Other (distended) Neuro Exam: Alert Extremities: Other Skin: Warm Labs Laboratory Tests Test 10/24/19 11:49 10/24/19 16:51 10/24/19 21:11 10/25/19 06:56 Glucose (Fingerstick) 142 mg/dL (70-99) 112 mg/dL (70-99) 107 mg/dL (70-99) 134 mg/dL (70-99) Test 10/25/19 11:32 10/25/19 16:15 10/25/19 20:52 10/26/19 07:18 Glucose (Fingerstick) 135 mg/dL (70-99) 99 mg/dL (70-99) 122 mg/dL (70-99) 112 mg/dL (70-99) Laboratory Tests Test 10/25/19 11:32 10/25/19 16:15 10/25/19 20:52 10/26/19 07:18 Glucose (Fingerstick) 135 mg/dL (70-99) 99 mg/dL (70-99) 122 mg/dL (70-99) 112 mg/dL (70-99) Medications Active Scripts Medications Dose Route/Sig Max Daily Dose Days Date Category Dose Instructions Buspirone Hcl 10 Mg Tablet 1 Tab PO BIDACBL 10/21/19 Reported Alprazolam 0.5 Mg Tablet 1 Tab PO HS 10/16/19 Reported Acetaminophen 500 Mg Tablet 1 Tab PO PRN Q6HRS PRN 15 10/16/19 Reported Levemir (Insulin Detemir) 100 Unit/1 Ml Vial 5 Unit SQ DAILY PRN 10/16/19 Reported 5 units daily in morning if bs greater than 200. Oxycodone Hcl Immed.release (Oxycodone Hcl) 15 Mg Tablet 15 Mg PO PRN Q6HRS PRN 10/16/19 Reported Ferrous Sulfate 325 Mg Tablet 65 Mg PO BID 10/16/19 Reported Metformin Hcl 500 Mg Tablet 500 Mg PO BIDWMEALS 10/16/19 Reported Amlodipine Besylate 10 Mg Tablet 10 Mg PO DAILY 10/16/19 Reported Pantoprazole Sodium (Pantoprazole Sodium) 40 Mg Tablet.dr 40 Mg PO DAILYAC 08/15/19 Reported Trazodone Hcl 50 Mg Tablet 1 Tab PO QHS 08/15/19 Reported Furosemide 20 Mg Tablet 1 Tab PO DAILY 08/15/19 Reported Gabapentin (Gabapentin) 100 Mg Capsule 100 Mg PO TID 08/15/19 Reported Metoprolol Tartrate 100 Mg Tablet 1 Tab PO BID 08/15/19 Reported Melatonin 3 Mg Tablet 2 Tab PO QHS 08/15/19 Reported Impression . MPRESSION: 1. Abnormal x-ray revealing possible atelectasis, infiltrate in the left lower base. 2. Right upper quadrant pain. 3. Leukocytosis. improving 4. Diarrhea. c diff colitis 5. Status post exploratory laparotomy with pancreatic necrosectomy, cholecystectomy, gastrostomy tube placement, tracheotomy. 6. Hyponatremia. 7. Hepatitis B. 8. Generalized weakness. 9. Small left-sided effusion. CT report Impression: Decreased size of the necrotic pancreas. Mildly to moderately increased size of the collection extending from pancreatic tail to the left subdiaphragmatic region. Moderate quantity of ascites. Greater amount of ascites is noted in the interval. Left posterior basilar loculated pleural effusion with adjacent atelectatic consolidation. Considering the pleural thickening evident at the left posterior basilar aspect but the pleural effusion, possible empyema drainage. Diffuse heterogeneous low attenuation of the liver is new in the interval. Portal vein is diminutive. Correlate for underlying inflammatory process. Findings may partly due to fatty infiltration of the liver although the findings are more evident since prior exam. Portal vein is diminutive in size but similar to the prior exam. Colonic wall edema is seen in the interval. Correlate for underlying colitis. No obstruction. Decompressed vena cava. Cardiomegaly with hydration status. Plan . CT chest reviewed not enough fluid to perform thoracentesis po vanco for c diff 02 titration Treat for pneumonia Incentive spirometry Follow surgery input, very complex situation. dvt prophylaxis discussed w rn, pt CHRIS TINOCO MD Oct 26, 2019 10:16
--- NOTE | 2019-10-26 11:51 | PDOC ---
G I PROGRESS NOTE Subjective Asleep, not awakened. Objective Apparently tolerating tube feeding. Physical Exam No PE. Review of Relevant I have reviewed the following items alexandra (where applicable) has been applied. Labs Laboratory Tests Test 10/24/19 11:49 10/24/19 16:51 10/24/19 21:11 10/25/19 06:56 Glucose (Fingerstick) 142 mg/dL (70-99) 112 mg/dL (70-99) 107 mg/dL (70-99) 134 mg/dL (70-99) Test 10/25/19 11:32 10/25/19 16:15 10/25/19 20:52 10/26/19 07:18 Glucose (Fingerstick) 135 mg/dL (70-99) 99 mg/dL (70-99) 122 mg/dL (70-99) 112 mg/dL (70-99) Test 10/26/19 11:12 Glucose (Fingerstick) 152 mg/dL (70-99) Laboratory Tests Test 10/25/19 16:15 10/25/19 20:52 10/26/19 07:18 10/26/19 11:12 Glucose (Fingerstick) 99 mg/dL (70-99) 122 mg/dL (70-99) 112 mg/dL (70-99) 152 mg/dL (70-99) Microbiology 10/21/19 Blood Culture - Preliminary, Resulted NO GROWTH AFTER 4 DAYS Vitals/I & O Vital Sign - Last 24 Hours 10/25/19 10/25/19 10/25/19 10/25/19 13:22 13:23 13:52 15:01 Temp 97.5 97.5 Pulse 108 105 Resp 18 18 20 B/P (MAP) 116/72 113/81 (92) Pulse Ox 100 98 98 O2 Delivery Room Air Room Air Room Air 10/25/19 10/25/19 10/25/19 10/25/19 18:56 19:24 19:26 20:00 Temp 99.7 99.7 Pulse 85 Resp 16 18 B/P (MAP) 98/78 (85) Pulse Ox 98 100 O2 Delivery Room Air Room Air Room Air Room Air 10/25/19 10/25/19 10/25/19 10/26/19 21:12 22:13 22:30 02:43 Temp 98.0 97.9 98.0 97.9 Pulse 100 91 83 Resp 18 18 B/P (MAP) 98/78 92/62 (72) 86/61 (69) Pulse Ox 100 99 O2 Delivery Room Air Room Air Room Air 10/26/19 10/26/19 10/26/19 10/26/19 03:52 04:22 07:13 08:00 Temp 97.5 97.5 Pulse 94 Resp 18 B/P (MAP) 97/63 (74) Pulse Ox 99 O2 Delivery Room Air Room Air Room Air Room Air 10/26/19 10/26/19 10:01 10:08 Temp 97.7 97.7 Pulse 93 Resp 18 B/P (MAP) 94/60 (71) Pulse Ox 100 O2 Delivery Room Air Room Air Intake and Output 10/25/19 10/25/19 10/26/19 15:00 23:00 07:00 Intake Total 500 ml 50 ml Output Total 100 ml 100 ml 200 ml Balance -100 ml 400 ml -150 ml Problem List Problems Medical Problems: (1) Pneumonia Status: Acute (2) Sepsis Status: Acute Assessment C.diff diarrhea, on vanc. Prior biliary pancreatitis; large pseudocyst remains. Cyst/duodenal fistula. Plan of Care Note Continue vanc, tube feedings. Justicifation of Admission Dx: Justifications for Admission: Justification of Admission Dx: Yes Comminuty Aquired Pneumonia: Med-High Risk Pt Sepsis: Infection MARIA L CRUZ MD Oct 26, 2019 11:51
[2019-10-26] MEDS: METOPROLOL TART IMMED RELEASE 25 MG TABLET. PO SCH ×2 (12:21→21:53)
[2019-10-26] MEDS: oxyCODONE IR 5 MG TABLET PO PRN ×2 (12:29→21:52)
--- NOTE | 2019-10-26 12:30 | PDOC ---
PROGRESS NOTES Chief Complaint Chief Complaint A/P: RUQ abdominal pain - with recent h/o gallstone pancreatitis, will obtain abdominal US, consult GI and general surgery, well known to both services. CT abdomen/pelvis with significant ascites Leukocytosis - with tachcardia he meets SIRS criteria, given IVF and empiric levaquin for sepsis. I do not see signs of pneumonia. will f/u cultures, check stool Diarrhea - will collect stool, check for c. diff given prison antibiotic exposure as well as high WBC H/o recent Severe pancreatitis s/p ex-lap with pancreatic necrosectomy, cholecystostomy tube placement, gastrostomy tube placement, tracheostomy placement, 5 drains, 1.5L ascites drained - likely gallstone pancreatitis Status post tracheostomy - reversed, recovered Hyponatremia - will restart fluids Severe protein calorie malnutrition - would restart G-tube feeds if ok with general surgery, health information technologist to see Physician deconditioning - will have PT/OT Hypocalcemia Hepatitis B LLL small effusion - still present. will obtain CT chest/abd/pelvis with contrast Hyperglycemia - cont insulin FEN - General diet PPX - lovenox FULL CODE Dispo - inpatient CVC. Low threshold for ICU transfer. History of Present Illness History of Present Illness Mr Mata is a 49yo M w/ PMHx pancreatitis s/p ex-lap with pancreatic necrose ctomy, gastrostomy tube placement, s/p tracheostomy, hepatitis B who returns to the hospital with his from home c/o diarrhea and RUQ pain that began on 10/21/2019. He was hospitalized for what was ultimately diagnosed as gallstone pancreatitis 06/11/2019-07/22/2019 [underwent hemodialysis for renal failure, stopped 07/04/2019, on 06/22/2019 is s/p ex-lap with pancreatic necrosectomy, cholecystostomy tube placement, gastrostomy tube placement, 5 drains, 1.5L ascites drained, and s/p tracheostomy at that time] and discharged to [facility] for further recovery. He reports he has been recovering at home with his . Has been off antibio tics since 07/31/2019. He has been short of breath but that is no different than it has been for the past 2 months. No cough no recent sick contacts. He is lost 60 pounds since prior to his May hospitalization. Labs: WBC 19.4, Hb 8.6, platelets 456, NA 131, K4.6, BUN 17, CR 0.9, glucose 130, lactic acid 2.2, albumin 1.8, alkaline phosphatase 283, calcium 7.9 lipase normal. CXR interpreted as atelectasis versus left lower lobe infiltrate, was dosed with Levaquin in ED. BP 98/54. Admitted for further care. 10/22: Overnight still with multiple BM. Had one accident with watery BM this morning. WBC 14.3 Hb 7 platelets 316, NA 133. Discussed with IR his left-sided pleural effusion loculations much smaller the rim is even smaller seems to be healing, but his abdominal ascites is significant and there is drainage. Tolerated tube feeds overnight well his appetite is low this morning. BP improved after decreasing his oxycodone dosing. He would like to stop taking gabapentin 10/23: Hb to 8.8 from 7 after 1 u PRBC. Having some back muscle spasms and pain. Overnight had bloating with his tube feeds. [place] Melgoza notes the wrong port has been used. Instructed patient and nursing on using jejunal port for feeding, not gastric port. C. DIFF POSITIVE. 10/24: Afebrile. Tolerated tube feeds overnight little less diarrhea no response on oral vancomycin. He has some rectal itching. Tachycardia. Blood pressure is a little better. Legs have swollen up. Afebrile. Hemodynamically stable, less tachycardic. Pain is improved. Less diarrhea on oral vancomycin. Plan: Feed through J port Lidoderm and diclofenac for back pain Restarted metoprolol and lasix Cont vancomycin Rectal hydrocortisone Labs in AM Vitals Vitals Vital Signs Date Time Temp Pulse Resp B/P (MAP) Pulse Ox O2 Delivery O2 Flow Rate FiO2 10/26/19 10:08 97.7 93 18 94/60 (71) 100 Room Air 97.7 Physical Exam General: Alert, Oriented X3, Cooperative, mild distress Heart: Regular rate, Normal S1, Normal S2 Lungs: Clear Abdomen: Soft, Other Extremities: No clubbing, No cyanosis, No edema, Normal pulses, No tenderness/swelling Skin: No rashes, No breakdown, No significant lesion Labs LABS Laboratory Tests Test 10/25/19 16:15 10/25/19 20:52 10/26/19 07:18 10/26/19 11:12 Glucose (Fingerstick) 99 mg/dL (70-99) 122 mg/dL (70-99) 112 mg/dL (70-99) 152 mg/dL (70-99) Assessment and Plan Assessmemt and Plan Problems Medical Problems: (1) Pneumonia Status: Acute (2) Sepsis Status: Acute Comment Review of Relevant I have reviewed the following items alexandra (where applicable) has been applied. Labs Laboratory Tests Test 10/24/19 16:51 10/24/19 21:11 10/25/19 06:56 10/25/19 11:32 Glucose (Fingerstick) 112 mg/dL (70-99) 107 mg/dL (70-99) 134 mg/dL (70-99) 135 mg/dL (70-99) Test 10/25/19 16:15 10/25/19 20:52 10/26/19 07:18 10/26/19 11:12 Glucose (Fingerstick) 99 mg/dL (70-99) 122 mg/dL (70-99) 112 mg/dL (70-99) 152 mg/dL (70-99) Laboratory Tests Test 10/25/19 16:15 10/25/19 20:52 10/26/19 07:18 10/26/19 11:12 Glucose (Fingerstick) 99 mg/dL (70-99) 122 mg/dL (70-99) 112 mg/dL (70-99) 152 mg/dL (70-99) Microbiology 10/21/19 Blood Culture - Preliminary, Resulted NO GROWTH AFTER 4 DAYS Medications Current Medications Sodium Chloride 1,000 ml @ 1,000 mls/hr 1X ONCE IV Last administered on 10/21/19at 18:18; Start 10/21/19 at 18:00; Stop 10/21/19 at 18:59; Status DC Levofloxacin/ Dextrose 150 ml @ 100 mls/hr 1X ONCE IV Last administered on 10/21/19at 19:58; Start 10/21/19 at 19:45; Stop 10/21/19 at 21:14; Status DC Ondansetron HCl (Zofran) 4 mg PRN Q8HRS PRN IV NAUSEA/VOMITING; Start 10/21/19 at 20:30; Stop 10/22/19 at 07:58; Status DC Morphine Sulfate (Morphine Sulfate) 2 mg PRN Q2HR PRN IV PAIN; Start 10/21/19 at 20:30; Stop 10/22/19 at 07:58; Status DC Oxycodone HCl (Roxicodone) 15 mg PRN Q6HRS PRN PO PAIN Last administered on 10/22/19at 05:46; Start 10/21/19 at 21:00; Stop 10/22/19 at 11:30; Status DC Sodium Chloride 1,000 ml @ 1,000 mls/hr 1X ONCE IV Last administered on 10/21/19at 22:18; Start 10/21/19 at 22:30; Stop 10/21/19 at 23:29; Status DC Alprazolam (Xanax) 0.5 mg 1X ONCE PO Last administered on 10/21/19at 23:22; Start 10/21/19 at 23:30; Stop 10/21/19 at 23:31; Status DC Trazodone HCl (Desyrel) 50 mg 1X ONCE PO Last administered on 10/21/19at 23:22; Start 10/21/19 at 23:30; Stop 10/21/19 at 23:31; Status DC Morphine Sulfate (Morphine Sulfate) 2 mg PRN Q4HRS PRN IV MODERATE PAIN Last administered on 10/24/19at 00:28; Start 10/22/19 at 08:00; Stop 10/24/19 at 02:44; Status DC Ondansetron HCl (Zofran) 4 mg PRN Q4HRS PRN IV NAUSEA/VOMITING Last administered on 10/25/19at 13:23; Start 10/22/19 at 08:00 Acetaminophen (Tylenol) 500 mg PRN Q6HRS PRN PO MILD PAIN / TEMP > 100.3'F Last administered on 10/22/19at 09:22; Start 10/22/19 at 08:00 Buspirone HCl (Buspar) 10 mg BIDACBL PO Last administered on 10/22/19at 11:17; Start 10/22/19 at 11:30; Stop 10/24/19 at 11:40; Status DC Ferrous Sulfate (Feosol) 325 mg BIDWMEALS PO Last administered on 10/26/19at 08:35; Start 10/22/19 at 09:00 Gabapentin (Neurontin) 100 mg TID PO Last administered on 10/22/19at 21:07; Start 10/22/19 at 09:00; Stop 10/23/19 at 11:16; Status DC Pantoprazole Sodium (Protonix) 40 mg DAILYAC PO Last administered on 10/26/19at 08:35; Start 10/22/19 at 08:15 Trazodone HCl (Desyrel) 50 mg QHS PO Last administered on 10/25/19at 23:19; Start 10/22/19 at 21:00 Insulin Glargine (Lantus Syringe) 5 unit QHS SQ Last administered on 10/22/19at 21:13; Start 10/22/19 at 21:00 Non-Formulary Medication (Melatonin ) 2 tab QHS PO ; Start 10/22/19 at 21:00; Status UNV Insulin Human Lispro (HumaLOG) 0-7 UNITS TIDACHC SQ ; Start 10/22/19 at 11:30 Dextrose (Dextrose 50%-Water Syringe) 12.5 gm PRN Q15MIN PRN IV SEE COMMENTS; Start 10/22/19 at 08:00 Sodium Chloride 1,000 ml @ 1,000 mls/hr 1X ONCE IV Last administered on 10/22/19at 11:17; Start 10/22/19 at 10:00; Stop 10/22/19 at 10:59; Status DC Lorazepam (Ativan Inj) 1 mg PRN Q5MIN PRN IVP ANXIETY / AGITATION Last administered on 10/25/19at 18:32; Start 10/22/19 at 11:00; Stop 10/25/19 at 18:34; Status DC Psyllium Hydrophilic Mucilloid (Metamucil Fiber Packet) 1 pkt QHS PO ; Start 10/22/19 at 21:00 Iohexol (Omnipaque 240 Mg/ml) 30 ml 1X ONCE PO Last administered on 10/22/19at 11:00; Start 10/22/19 at 11:00; Stop 10/22/19 at 11:01; Status DC Iohexol (Omnipaque 300 Mg/ml) 75 ml 1X ONCE IV Last administered on 10/22/19at 11:00; Start 10/22/19 at 11:00; Stop 10/22/19 at 11:01; Status DC Info (CONTRAST GIVEN -- Rx MONITORING) 1 each PRN DAILY PRN MC SEE COMMENTS; Start 10/22/19 at 11:15; Stop 10/24/19 at 11:14; Status DC Enoxaparin Sodium (Lovenox 40mg Syringe) 40 mg Q24H SQ ; Start 10/22/19 at 12:00; Stop 10/22/19 at 15:51; Status DC Oxycodone HCl (Roxicodone) 5 mg PRN Q6HRS PRN PO MODERATE PAIN 4-6 (USE 1ST) Last administered on 10/25/19at 21:13; Start 10/22/19 at 11:30 Piperacillin Sod/ Tazobactam Sod 3.375 gm/Sodium Chloride 50 ml @ 100 mls/hr Q6HRS IV Last administered on 10/24/19at 12:08; Start 10/22/19 at 16:00; Stop 10/24/19 at 16:43; Status DC Piperacillin Sod/ Tazobactam Sod (Zosyn Per Pharmacy) 1 each PRN DAILY PRN MC SEE COMMENTS; Start 10/22/19 at 16:00; Stop 10/24/19 at 17:17; Status DC Vancomycin HCl (Vancomycin Oral Solution) 125 mg [id number] JT Last administered on 10/26/19at 08:37; Start 10/23/19 at 17:00 Sodium Chloride 1,000 ml @ 100 mls/hr 1X ONCE IV Last administered on 10/24/19at 03:10; Start 10/24/19 at 03:00; Stop 10/24/19 at 12:59; Status DC Morphine Sulfate (Morphine Sulfate) 4 mg PRN Q3HRS PRN IV PAIN Last administered on 10/26/19at 10:01; Start 10/24/19 at 03:00 Lidocaine (Lidoderm) 1 patch DAILY TD Last administered on 10/25/19at 09:04; Start 10/24/19 at 12:00; Stop 10/25/19 at 16:18; Status DC Diclofenac Sodium (Voltaren) 1 devorah BID TP Last administered on 10/25/19at 09:05; Start 10/24/19 at 12:00 Miscellaneous (Lidoderm Patch Removal) 1 ea QHS MC Last administered on 10/25/19at 21:00; Start 10/24/19 at 21:00; Stop 10/25/19 at 22:00; Status DC Buspirone HCl (Buspar) 10 mg PRN QID PRN PO anxiety; Start 10/24/19 at 11:45 Enoxaparin Sodium (Lovenox 40mg Syringe) 40 mg Q24H SQ Last administered on 10/25/19at 16:08; Start 10/24/19 at 17:00 Furosemide (Lasix) 20 mg DAILY PO Last administered on 10/25/19at 13:23; Start 10/25/19 at 13:00 Metoprolol Tartrate (Lopressor) 25 mg BID PO Last administered on 10/25/19at 21:12; Start 10/25/19 at 13:00 Phenyleph/Shark Oil/Min Oil/Petrol (Preparation H) 1 devorah PRN QID PRN RC RECTAL PAIN; Start 10/25/19 at 12:45 Lidocaine (Lidoderm) 1 patch QHS TD ; Start 10/26/19 at 21:00 Lactobacillus Rhamnosus (Culturelle) 1 cap BID PO Last administered on 10/26/19at 08:36; Start 10/25/19 at 21:00 Miscellaneous (Lidoderm Patch Removal) 1 ea DAILY MC ; Start 10/27/19 at 09:00 Active Scripts Active Reported Buspirone Hcl 10 Mg Tablet 1 Tab PO BIDACBL Alprazolam 0.5 Mg Tablet 1 Tab PO HS Acetaminophen 500 Mg Tablet 1 Tab PO PRN Q6HRS PRN 15 Days Levemir (Insulin Detemir) 100 Unit/1 Ml Vial 5 Unit SQ DAILY PRN 5 units daily in morning if bs greater than 200. Oxycodone Hcl Immed.release (Oxycodone Hcl) 15 Mg Tablet 15 Mg PO PRN Q6HRS PRN Ferrous Sulfate 325 Mg Tablet 65 Mg PO BID Metformin Hcl 500 Mg Tablet 500 Mg PO BIDWMEALS Amlodipine Besylate 10 Mg Tablet 10 Mg PO DAILY Pantoprazole Sodium (Pantoprazole Sodium) 40 Mg Tablet.dr 40 Mg PO DAILYAC Trazodone Hcl 50 Mg Tablet 1 Tab PO QHS Furosemide 20 Mg Tablet 1 Tab PO DAILY Gabapentin (Gabapentin) 100 Mg Capsule 100 Mg PO TID Metoprolol Tartrate 100 Mg Tablet 1 Tab PO BID Melatonin 3 Mg Tablet 2 Tab PO QHS Vitals/I & O Vital Sign - Last 24 Hours 10/25/19 10/25/19 10/25/19 10/25/19 13:22 13:23 13:52 15:01 Temp 97.5 97.5 Pulse 108 105 Resp 18 18 20 B/P (MAP) 116/72 113/81 (92) Pulse Ox 100 98 98 O2 Delivery Room Air Room Air Room Air 10/25/19 10/25/19 10/25/19 10/25/19 18:56 19:24 19:26 20:00 Temp 99.7 99.7 Pulse 85 Resp 16 18 B/P (MAP) 98/78 (85) Pulse Ox 98 100 O2 Delivery Room Air Room Air Room Air Room Air 10/25/19 10/25/19 10/25/19 10/26/19 21:12 22:13 22:30 02:43 Temp 98.0 97.9 98.0 97.9 Pulse 100 91 83 Resp 18 18 B/P (MAP) 98/78 92/62 (72) 86/61 (69) Pulse Ox 100 99 O2 Delivery Room Air Room Air Room Air 10/26/19 10/26/19 10/26/19 10/26/19 03:52 04:22 07:13 08:00 Temp 97.5 97.5 Pulse 94 Resp 18 B/P (MAP) 97/63 (74) Pulse Ox 99 O2 Delivery Room Air Room Air Room Air Room Air 10/26/19 10/26/19 10:01 10:08 Temp 97.7 97.7 Pulse 93 Resp 18 B/P (MAP) 94/60 (71) Pulse Ox 100 O2 Delivery Room Air Room Air Intake and Output 10/25/19 10/25/19 10/26/19 15:00 23:00 07:00 Intake Total 500 ml 50 ml Output Total 100 ml 100 ml 200 ml Balance -100 ml 400 ml -150 ml Nutrition Consultation Dietary Evaluation: Recommendations by RD: Dietary education by RD, Increase Calorie Intake, Protein supplementation, Add supplement feedings Comments: Continue w/ADA diet w/supplements as ordered, however ok per RD to liberalize diet as needed to honor food preferences and promote PO intake; obtained dinner order from pt REC adjust TFs to following: Osmolite 1.2@30 ml/hr, increase 10 ml q8 hrs as tolerated to goal rate 60 ml/hr w/100 ml water flushes q4 hrs; feeding and water flushes infusing x12 hours overnight. Clarified TF formula and plan w/RN (Jane) and w/diet office Expected Outcomes/Goals: nutritition intake to meet >75% est needs - not met, goal ongoing Interpretation of weight loss: >7.5% in 3 months Malnutrition Findings: Food and Nutrition Intake (Sev: <50% est energy req 5days Weight Status: Appropriate Justicifation of Admission Dx: Justifications for Admission: Justification of Admission Dx: Yes Comminuty Aquired Pneumonia: Med-High Risk Pt Sepsis: Infection JUAN ANTONIO OWUSU MD Oct 26, 2019 12:30
[2019-10-26 12:36] LABS: BASO % 0 % (0-3); EOS % 0 % (0-3); HEMATOCRIT 25.7 % (39.0-53.0); HEMOGLOBIN 8.5 g/dL (13.0-17.5); LYMPH % 9 % (24-48); MEAN CORPUSCULAR HEMOGLOBIN 27 pg (25-35); MEAN CORPUSCULAR HGB CONC 33 g/dL (31-37); MEAN CORPUSCULAR VOLUME 80 fL (79-100); MONO # 1.2 x10^3/uL (0.0-1.1); MONO % 11 % (0-9); NEUT # 8.3 x10^3/uL (1.8-7.7); NEUT % 79 % (31-73); PLATELET COUNT 300 x10^3/uL (140-400); RED BLOOD COUNT 3.22 x10^6/uL (4.30-5.70); RED CELL DISTRIBUTION WIDTH 20.8 % (11.5-14.5); WHITE BLOOD COUNT 10.5 x10^3/uL (4.0-11.0)
[2019-10-26 12:47] LABS: ALBUMIN 1.2 g/dL (3.4-5.0); ALBUMIN/GLOBULIN RATIO 0.3 (1.0-1.7); CALCIUM 6.8 mg/dL (8.5-10.1); CREATININE 0.9 mg/dL (0.7-1.3); GFR 108.5; POTASSIUM 4.3 mmol/L (3.5-5.1); TOTAL BILIRUBIN 0.7 mg/dL (0.2-1.0); TOTAL PROTEIN 5.7 g/dL (6.4-8.2)
--- NOTE | 2019-10-26 13:28 | PDOC ---
SURGICAL PROGRESS NOTE Subjective Pt feels somewhat better, leilani tube feeds Vital Signs Vital Signs Date Time Temp Pulse Resp B/P (MAP) Pulse Ox O2 Delivery O2 Flow Rate FiO2 10/26/19 12:29 100 Room Air 10/26/19 12:21 93 94/60 10/26/19 10:08 97.7 18 97.7 I&O Intake and Output 10/26/19 07:00 Intake Total 550 ml Output Total 400 ml Balance 150 ml Intake Oral 550 ml Output Urine Total 400 ml # Bowel Movements 2 General: Alert, Oriented X3, Cooperative, No acute distress Abdomen: Soft, No tenderness Labs Laboratory Tests Test 10/24/19 16:51 10/24/19 21:11 10/25/19 06:56 10/25/19 11:32 Glucose (Fingerstick) 112 mg/dL (70-99) 107 mg/dL (70-99) 134 mg/dL (70-99) 135 mg/dL (70-99) Test 10/25/19 16:15 10/25/19 20:52 10/26/19 07:18 10/26/19 11:12 Glucose (Fingerstick) 99 mg/dL (70-99) 122 mg/dL (70-99) 112 mg/dL (70-99) 152 mg/dL (70-99) Test 10/26/19 12:20 White Blood Count 10.5 x10^3/uL (4.0-11.0) Red Blood Count 3.22 x10^6/uL (4.30-5.70) Hemoglobin 8.5 g/dL (13.0-17.5) Hematocrit 25.7 % (39.0-53.0) Mean Corpuscular Volume 80 fL (79-100) Mean Corpuscular Hemoglobin 27 pg (25-35) Mean Corpuscular Hemoglobin Concent 33 g/dL (31-37) Red Cell Distribution Width 20.8 % (11.5-14.5) Platelet Count 300 x10^3/uL (140-400) Neutrophils (%) (Auto) 79 % (31-73) Lymphocytes (%) (Auto) 9 % (24-48) Monocytes (%) (Auto) 11 % (0-9) Eosinophils (%) (Auto) 0 % (0-3) Basophils (%) (Auto) 0 % (0-3) Neutrophils # (Auto) 8.3 x10^3/uL (1.8-7.7) Lymphocytes # (Auto) 1.0 x10^3/uL (1.0-4.8) Monocytes # (Auto) 1.2 x10^3/uL (0.0-1.1) Eosinophils # (Auto) 0.0 x10^3/uL (0.0-0.7) Basophils # (Auto) 0.0 x10^3/uL (0.0-0.2) Sodium Level 129 mmol/L (136-145) Potassium Level 4.3 mmol/L (3.5-5.1) Chloride Level 97 mmol/L (98-107) Carbon Dioxide Level 26 mmol/L (21-32) Anion Gap 6 (6-14) Blood Urea Nitrogen 10 mg/dL (8-26) Creatinine 0.9 mg/dL (0.7-1.3) Estimated GFR (Cockcroft-Gault) 108.5 BUN/Creatinine Ratio 11 (6-20) Glucose Level 135 mg/dL (70-99) Calcium Level 6.8 mg/dL (8.5-10.1) Total Bilirubin 0.7 mg/dL (0.2-1.0) Aspartate Amino Transf (AST/SGOT) 18 U/L (15-37) Alanine Aminotransferase (ALT/SGPT) 17 U/L (16-63) Alkaline Phosphatase 271 U/L (46-116) Total Protein 5.7 g/dL (6.4-8.2) Albumin 1.2 g/dL (3.4-5.0) Albumin/Globulin Ratio 0.3 (1.0-1.7) Laboratory Tests Test 10/25/19 16:15 10/25/19 20:52 10/26/19 07:18 10/26/19 11:12 Glucose (Fingerstick) 99 mg/dL (70-99) 122 mg/dL (70-99) 112 mg/dL (70-99) 152 mg/dL (70-99) Test 10/26/19 12:20 White Blood Count 10.5 x10^3/uL (4.0-11.0) Red Blood Count 3.22 x10^6/uL (4.30-5.70) Hemoglobin 8.5 g/dL (13.0-17.5) Hematocrit 25.7 % (39.0-53.0) Mean Corpuscular Volume 80 fL (79-100) Mean Corpuscular Hemoglobin 27 pg (25-35) Mean Corpuscular Hemoglobin Concent 33 g/dL (31-37) Red Cell Distribution Width 20.8 % (11.5-14.5) Platelet Count 300 x10^3/uL (140-400) Neutrophils (%) (Auto) 79 % (31-73) Lymphocytes (%) (Auto) 9 % (24-48) Monocytes (%) (Auto) 11 % (0-9) Eosinophils (%) (Auto) 0 % (0-3) Basophils (%) (Auto) 0 % (0-3) Neutrophils # (Auto) 8.3 x10^3/uL (1.8-7.7) Lymphocytes # (Auto) 1.0 x10^3/uL (1.0-4.8) Monocytes # (Auto) 1.2 x10^3/uL (0.0-1.1) Eosinophils # (Auto) 0.0 x10^3/uL (0.0-0.7) Basophils # (Auto) 0.0 x10^3/uL (0.0-0.2) Sodium Level 129 mmol/L (136-145) Potassium Level 4.3 mmol/L (3.5-5.1) Chloride Level 97 mmol/L (98-107) Carbon Dioxide Level 26 mmol/L (21-32) Anion Gap 6 (6-14) Blood Urea Nitrogen 10 mg/dL (8-26) Creatinine 0.9 mg/dL (0.7-1.3) Estimated GFR (Cockcroft-Gault) 108.5 BUN/Creatinine Ratio 11 (6-20) Glucose Level 135 mg/dL (70-99) Calcium Level 6.8 mg/dL (8.5-10.1) Total Bilirubin 0.7 mg/dL (0.2-1.0) Aspartate Amino Transf (AST/SGOT) 18 U/L (15-37) Alanine Aminotransferase (ALT/SGPT) 17 U/L (16-63) Alkaline Phosphatase 271 U/L (46-116) Total Protein 5.7 g/dL (6.4-8.2) Albumin 1.2 g/dL (3.4-5.0) Albumin/Globulin Ratio 0.3 (1.0-1.7) Problem List Problems Medical Problems: (1) Pneumonia Status: Acute (2) Sepsis Status: Acute Assessment/Plan cont abx for c diff and tube feeds will need to replace nutrition factors prior to any additional interventions. Justicifation of Admission Dx: Justifications for Admission: Justification of Admission Dx: Yes Comminuty Aquired Pneumonia: Med-High Risk Pt Sepsis: Infection KARLA CALL MD Oct 26, 2019 13:28
[2019-10-26 14:20] VITALS: BP 98/64
[2019-10-26] MEDS: ONDANSETRON PF 4 MG/2 ML VIAL. IV PRN ×2 (15:36→22:30)
[2019-10-26] MEDS: ENOXAPARIN 40 MG/0.4 ML SYRINGE. SQ SCH (17:54)
[2019-10-26 19:21] VITALS: BP 107/68
[2019-10-26] MEDS: INSULIN GLARGINE SYRINGE. SQ SCH (21:00)
[2019-10-26] MEDS: traZODone 50 MG TABLET. PO SCH (21:53)
[2019-10-26] MEDS: PSYLLIUM HUSK (SUGAR FREE) 1 PKT PACKET PO SCH (21:53)
[2019-10-26] MEDS: LIDOCAINE (700MG/PATCH) PATCH. TD SCH (21:54)
[2019-10-26 22:21] VITALS: BP 92/60
[2019-10-27 02:56] VITALS: BP 91/98
[2019-10-27] MEDS: MORPHINE SULFATE 4 MG/ML VIAL. IV PRN ×4 (04:52→21:25)
[2019-10-27] MEDS: oxyCODONE IR 5 MG TABLET PO PRN ×2 (06:11→17:19)
[2019-10-27 07:00] VITALS: BP 91/68
[2019-10-27] MEDS: INSULIN LISPRO 300 UNITS/3 ML VIAL. SQ SCH ×4 (07:30→20:47)
--- NOTE | 2019-10-27 08:28 | PDOC ---
PULMONARY PROGRESS NOTES Subjective Patient not short of air continues to have abdominal discomfort Vitals Vital Signs Date Time Temp Pulse Resp B/P (MAP) Pulse Ox O2 Delivery O2 Flow Rate FiO2 10/27/19 06:11 18 Room Air 10/27/19 02:56 98.4 90 91/98 (96) 98 98.4 ROS: No Chest Pain, No Increase Cough General: Alert Lungs: Clear Cardiovascular: S1, S2 Abdomen: Soft, Non-tender, Other (distended) Neuro Exam: Alert Extremities: Other Skin: Warm Labs Laboratory Tests Test 10/25/19 11:32 10/25/19 16:15 10/25/19 20:52 10/26/19 07:18 Glucose (Fingerstick) 135 mg/dL (70-99) 99 mg/dL (70-99) 122 mg/dL (70-99) 112 mg/dL (70-99) Test 10/26/19 11:12 10/26/19 12:20 10/26/19 16:04 10/26/19 20:54 Glucose (Fingerstick) 152 mg/dL (70-99) 64 mg/dL (70-99) 79 mg/dL (70-99) White Blood Count 10.5 x10^3/uL (4.0-11.0) Red Blood Count 3.22 x10^6/uL (4.30-5.70) Hemoglobin 8.5 g/dL (13.0-17.5) Hematocrit 25.7 % (39.0-53.0) Mean Corpuscular Volume 80 fL (79-100) Mean Corpuscular Hemoglobin 27 pg (25-35) Mean Corpuscular Hemoglobin Concent 33 g/dL (31-37) Red Cell Distribution Width 20.8 % (11.5-14.5) Platelet Count 300 x10^3/uL (140-400) Neutrophils (%) (Auto) 79 % (31-73) Lymphocytes (%) (Auto) 9 % (24-48) Monocytes (%) (Auto) 11 % (0-9) Eosinophils (%) (Auto) 0 % (0-3) Basophils (%) (Auto) 0 % (0-3) Neutrophils # (Auto) 8.3 x10^3/uL (1.8-7.7) Lymphocytes # (Auto) 1.0 x10^3/uL (1.0-4.8) Monocytes # (Auto) 1.2 x10^3/uL (0.0-1.1) Eosinophils # (Auto) 0.0 x10^3/uL (0.0-0.7) Basophils # (Auto) 0.0 x10^3/uL (0.0-0.2) Sodium Level 129 mmol/L (136-145) Potassium Level 4.3 mmol/L (3.5-5.1) Chloride Level 97 mmol/L (98-107) Carbon Dioxide Level 26 mmol/L (21-32) Anion Gap 6 (6-14) Blood Urea Nitrogen 10 mg/dL (8-26) Creatinine 0.9 mg/dL (0.7-1.3) Estimated GFR (Cockcroft-Gault) 108.5 BUN/Creatinine Ratio 11 (6-20) Glucose Level 135 mg/dL (70-99) Calcium Level 6.8 mg/dL (8.5-10.1) Total Bilirubin 0.7 mg/dL (0.2-1.0) Aspartate Amino Transf (AST/SGOT) 18 U/L (15-37) Alanine Aminotransferase (ALT/SGPT) 17 U/L (16-63) Alkaline Phosphatase 271 U/L (46-116) Total Protein 5.7 g/dL (6.4-8.2) Albumin 1.2 g/dL (3.4-5.0) Albumin/Globulin Ratio 0.3 (1.0-1.7) Laboratory Tests Test 10/26/19 11:12 10/26/19 12:20 10/26/19 16:04 10/26/19 20:54 Glucose (Fingerstick) 152 mg/dL (70-99) 64 mg/dL (70-99) 79 mg/dL (70-99) White Blood Count 10.5 x10^3/uL (4.0-11.0) Red Blood Count 3.22 x10^6/uL (4.30-5.70) Hemoglobin 8.5 g/dL (13.0-17.5) Hematocrit 25.7 % (39.0-53.0) Mean Corpuscular Volume 80 fL (79-100) Mean Corpuscular Hemoglobin 27 pg (25-35) Mean Corpuscular Hemoglobin Concent 33 g/dL (31-37) Red Cell Distribution Width 20.8 % (11.5-14.5) Platelet Count 300 x10^3/uL (140-400) Neutrophils (%) (Auto) 79 % (31-73) Lymphocytes (%) (Auto) 9 % (24-48) Monocytes (%) (Auto) 11 % (0-9) Eosinophils (%) (Auto) 0 % (0-3) Basophils (%) (Auto) 0 % (0-3) Neutrophils # (Auto) 8.3 x10^3/uL (1.8-7.7) Lymphocytes # (Auto) 1.0 x10^3/uL (1.0-4.8) Monocytes # (Auto) 1.2 x10^3/uL (0.0-1.1) Eosinophils # (Auto) 0.0 x10^3/uL (0.0-0.7) Basophils # (Auto) 0.0 x10^3/uL (0.0-0.2) Sodium Level 129 mmol/L (136-145) Potassium Level 4.3 mmol/L (3.5-5.1) Chloride Level 97 mmol/L (98-107) Carbon Dioxide Level 26 mmol/L (21-32) Anion Gap 6 (6-14) Blood Urea Nitrogen 10 mg/dL (8-26) Creatinine 0.9 mg/dL (0.7-1.3) Estimated GFR (Cockcroft-Gault) 108.5 BUN/Creatinine Ratio 11 (6-20) Glucose Level 135 mg/dL (70-99) Calcium Level 6.8 mg/dL (8.5-10.1) Total Bilirubin 0.7 mg/dL (0.2-1.0) Aspartate Amino Transf (AST/SGOT) 18 U/L (15-37) Alanine Aminotransferase (ALT/SGPT) 17 U/L (16-63) Alkaline Phosphatase 271 U/L (46-116) Total Protein 5.7 g/dL (6.4-8.2) Albumin 1.2 g/dL (3.4-5.0) Albumin/Globulin Ratio 0.3 (1.0-1.7) Medications Active Scripts Medications Dose Route/Sig Max Daily Dose Days Date Category Dose Instructions Buspirone Hcl 10 Mg Tablet 1 Tab PO BIDACBL 10/21/19 Reported Alprazolam 0.5 Mg Tablet 1 Tab PO HS 10/16/19 Reported Acetaminophen 500 Mg Tablet 1 Tab PO PRN Q6HRS PRN 15 10/16/19 Reported Levemir (Insulin Detemir) 100 Unit/1 Ml Vial 5 Unit SQ DAILY PRN 10/16/19 Reported 5 units daily in morning if bs greater than 200. Oxycodone Hcl Immed.release (Oxycodone Hcl) 15 Mg Tablet 15 Mg PO PRN Q6HRS PRN 10/16/19 Reported Ferrous Sulfate 325 Mg Tablet 65 Mg PO BID 10/16/19 Reported Metformin Hcl 500 Mg Tablet 500 Mg PO BIDWMEALS 10/16/19 Reported Amlodipine Besylate 10 Mg Tablet 10 Mg PO DAILY 10/16/19 Reported Pantoprazole Sodium (Pantoprazole Sodium) 40 Mg Tablet.dr 40 Mg PO DAILYAC 08/15/19 Reported Trazodone Hcl 50 Mg Tablet 1 Tab PO QHS 08/15/19 Reported Furosemide 20 Mg Tablet 1 Tab PO DAILY 08/15/19 Reported Gabapentin (Gabapentin) 100 Mg Capsule 100 Mg PO TID 08/15/19 Reported Metoprolol Tartrate 100 Mg Tablet 1 Tab PO BID 08/15/19 Reported Melatonin 3 Mg Tablet 2 Tab PO QHS 08/15/19 Reported Impression . MPRESSION: 1. Abnormal x-ray revealing possible atelectasis, infiltrate in the left lower base. 2. Right upper quadrant pain. 3. Leukocytosis. improving 4. Diarrhea. c diff colitis 5. Status post exploratory laparotomy with pancreatic necrosectomy, cholecystectomy, gastrostomy tube placement, tracheotomy. 6. Hyponatremia. 7. Hepatitis B. 8. Generalized weakness. 9. Small left-sided effusion. CT report Impression: Decreased size of the necrotic pancreas. Mildly to moderately increased size of the collection extending from pancreatic tail to the left subdiaphragmatic region. Moderate quantity of ascites. Greater amount of ascites is noted in the interval. Left posterior basilar loculated pleural effusion with adjacent atelectatic consolidation. Considering the pleural thickening evident at the left posterior basilar aspect but the pleural effusion, possible empyema drainage. Diffuse heterogeneous low attenuation of the liver is new in the interval. Portal vein is diminutive. Correlate for underlying inflammatory process. Findings may partly due to fatty infiltration of the liver although the findings are more evident since prior exam. Portal vein is diminutive in size but similar to the prior exam. Colonic wall edema is seen in the interval. Correlate for underlying colitis. No obstruction. Decompressed vena cava. Cardiomegaly with hydration status. Plan . Will see PRN call if needed CT chest reviewed not enough fluid to perform thoracentesis po vanco for c diff 02 titration Treat for pneumonia Incentive spirometry Follow surgery input, very complex situation. dvt prophylaxis DESTINI MATOS MD Oct 27, 2019 08:28
[2019-10-27] MEDS: PANTOPRAZOLE 40 MG TABLET.DR. PO SCH (08:33)
[2019-10-27] MEDS: METOPROLOL TART IMMED RELEASE 25 MG TABLET. PO SCH ×2 (09:00→20:49)
[2019-10-27] MEDS: PATCH REMOVAL. MC SCH (09:00)
[2019-10-27] MEDS: FUROSEMIDE 20 MG TABLET PO SCH (09:00)
[2019-10-27] MEDS: LACTOBACILLUS RHAMNOSUS GG 1 CAPSULE. PO SCH ×2 (09:51→20:50)
[2019-10-27] MEDS: VANCOMYCIN 125 MG/2.5 ML ORAL SOLUTION. JT SCH ×4 (09:51→20:50)
[2019-10-27] MEDS: FERROUS SULFATE 325 MG TABLET. PO SCH ×2 (09:51→17:00)
[2019-10-27] MEDS: DICLOFENAC SODIUM 1% TOPICAL GEL 100GM TUBE. TP SCH ×2 (09:58→20:51)
[2019-10-27] MEDS: ONDANSETRON PF 4 MG/2 ML VIAL. IV PRN ×3 (10:20→21:25)
--- NOTE | 2019-10-27 10:25 | NUR ---
IP: Pt is C.diff + requiring contact plus precautions using the brown sign.
--- NOTE | 2019-10-27 10:26 | PDOC ---
Subjective: Subjective: Attempted to see earlier today - "can you just come back when my 's here?" Objective: Vital Signs: Vital Signs Date Time Temp Pulse Resp B/P (MAP) Pulse Ox O2 Delivery O2 Flow Rate FiO2 10/27/19 10:06 Room Air 10/27/19 09:00 98 92/65 10/27/19 07:00 98.4 18 99 98.4 Labs: Laboratory Tests Test 10/26/19 11:12 10/26/19 12:20 10/26/19 16:04 10/26/19 20:54 Glucose (Fingerstick) 152 mg/dL 64 mg/dL 79 mg/dL White Blood Count 10.5 x10^3/uL Red Blood Count 3.22 x10^6/uL Hemoglobin 8.5 g/dL Hematocrit 25.7 % Mean Corpuscular Volume 80 fL Mean Corpuscular Hemoglobin 27 pg Mean Corpuscular Hemoglobin Concent 33 g/dL Red Cell Distribution Width 20.8 % Platelet Count 300 x10^3/uL Neutrophils (%) (Auto) 79 % Lymphocytes (%) (Auto) 9 % Monocytes (%) (Auto) 11 % Eosinophils (%) (Auto) 0 % Basophils (%) (Auto) 0 % Neutrophils # (Auto) 8.3 x10^3/uL Lymphocytes # (Auto) 1.0 x10^3/uL Monocytes # (Auto) 1.2 x10^3/uL Eosinophils # (Auto) 0.0 x10^3/uL Basophils # (Auto) 0.0 x10^3/uL Sodium Level 129 mmol/L Potassium Level 4.3 mmol/L Chloride Level 97 mmol/L Carbon Dioxide Level 26 mmol/L Anion Gap 6 Blood Urea Nitrogen 10 mg/dL Creatinine 0.9 mg/dL Estimated GFR (Cockcroft-Gault) 108.5 BUN/Creatinine Ratio 11 Glucose Level 135 mg/dL Calcium Level 6.8 mg/dL Total Bilirubin 0.7 mg/dL Aspartate Amino Transf (AST/SGOT) 18 U/L Alanine Aminotransferase (ALT/SGPT) 17 U/L Alkaline Phosphatase 271 U/L Total Protein 5.7 g/dL Albumin 1.2 g/dL Albumin/Globulin Ratio 0.3 Test 10/27/19 08:32 Glucose (Fingerstick) 95 mg/dL BLOOD CULTURE Final NO GROWTH AFTER 5 DAYS PE: GEN: NAD - sitting on edge of bed, appears chronically ill LUNGS: room air HEART: some tachycardia noted in chart ABD: non-distended NEURO/PSYCH: A & O 3 A/P: S/p pancreatic necrosectomy, pseudocyst C Diff diarrhea - on vanco -- Will return later per his request. Justicifation of Admission Dx: Justifications for Admission: Justification of Admission Dx: Yes Comminuty Aquired Pneumonia: Med-High Risk Pt Sepsis: Infection PAXTON ALEXANDER Oct 27, 2019 10:25
[2019-10-27 11:00] VITALS: BP 87/57
--- NOTE | 2019-10-27 11:17 | NUR ---
SS following up with discharge planning. SS reviewed pt chart and discussed with pt RN. Pt is currently on room air and has J Tube. Pt has positive CDIFF and on oral antibiotics. PT/OT recommended home with assistance. SS will continue to follow for discharge planning.
--- NOTE | 2019-10-27 11:29 | PDOC ---
MAXIMILIANO GREENBERG [employer] 10/27/19 1129: SURGICAL PROGRESS NOTE Subjective bloated loose stools drainage from old drain sites Vital Signs Vital Signs Date Time Temp Pulse Resp B/P (MAP) Pulse Ox O2 Delivery O2 Flow Rate FiO2 10/27/19 11:00 99.1 94 18 87/57 (67) 97 Room Air 99.1 I&O Intake and Output 10/27/19 07:00 Intake Total 2000 ml Output Total 500 ml Balance 1500 ml Intake Oral 800 ml Tube Feeding 1200 ml Output Urine Total 500 ml # Voids 1 # Bowel Movements 4 General: Alert, Cooperative Abdomen: Other (distended) Labs Laboratory Tests Test 10/25/19 11:32 10/25/19 16:15 10/25/19 20:52 10/26/19 07:18 Glucose (Fingerstick) 135 mg/dL (70-99) 99 mg/dL (70-99) 122 mg/dL (70-99) 112 mg/dL (70-99) Test 10/26/19 11:12 10/26/19 12:20 10/26/19 16:04 10/26/19 20:54 Glucose (Fingerstick) 152 mg/dL (70-99) 64 mg/dL (70-99) 79 mg/dL (70-99) White Blood Count 10.5 x10^3/uL (4.0-11.0) Red Blood Count 3.22 x10^6/uL (4.30-5.70) Hemoglobin 8.5 g/dL (13.0-17.5) Hematocrit 25.7 % (39.0-53.0) Mean Corpuscular Volume 80 fL (79-100) Mean Corpuscular Hemoglobin 27 pg (25-35) Mean Corpuscular Hemoglobin Concent 33 g/dL (31-37) Red Cell Distribution Width 20.8 % (11.5-14.5) Platelet Count 300 x10^3/uL (140-400) Neutrophils (%) (Auto) 79 % (31-73) Lymphocytes (%) (Auto) 9 % (24-48) Monocytes (%) (Auto) 11 % (0-9) Eosinophils (%) (Auto) 0 % (0-3) Basophils (%) (Auto) 0 % (0-3) Neutrophils # (Auto) 8.3 x10^3/uL (1.8-7.7) Lymphocytes # (Auto) 1.0 x10^3/uL (1.0-4.8) Monocytes # (Auto) 1.2 x10^3/uL (0.0-1.1) Eosinophils # (Auto) 0.0 x10^3/uL (0.0-0.7) Basophils # (Auto) 0.0 x10^3/uL (0.0-0.2) Sodium Level 129 mmol/L (136-145) Potassium Level 4.3 mmol/L (3.5-5.1) Chloride Level 97 mmol/L (98-107) Carbon Dioxide Level 26 mmol/L (21-32) Anion Gap 6 (6-14) Blood Urea Nitrogen 10 mg/dL (8-26) Creatinine 0.9 mg/dL (0.7-1.3) Estimated GFR (Cockcroft-Gault) 108.5 BUN/Creatinine Ratio 11 (6-20) Glucose Level 135 mg/dL (70-99) Calcium Level 6.8 mg/dL (8.5-10.1) Total Bilirubin 0.7 mg/dL (0.2-1.0) Aspartate Amino Transf (AST/SGOT) 18 U/L (15-37) Alanine Aminotransferase (ALT/SGPT) 17 U/L (16-63) Alkaline Phosphatase 271 U/L (46-116) Total Protein 5.7 g/dL (6.4-8.2) Albumin 1.2 g/dL (3.4-5.0) Albumin/Globulin Ratio 0.3 (1.0-1.7) Test 10/27/19 08:32 Glucose (Fingerstick) 95 mg/dL (70-99) Laboratory Tests Test 10/26/19 12:20 10/26/19 16:04 10/26/19 20:54 10/27/19 08:32 White Blood Count 10.5 x10^3/uL (4.0-11.0) Red Blood Count 3.22 x10^6/uL (4.30-5.70) Hemoglobin 8.5 g/dL (13.0-17.5) Hematocrit 25.7 % (39.0-53.0) Mean Corpuscular Volume 80 fL (79-100) Mean Corpuscular Hemoglobin 27 pg (25-35) Mean Corpuscular Hemoglobin Concent 33 g/dL (31-37) Red Cell Distribution Width 20.8 % (11.5-14.5) Platelet Count 300 x10^3/uL (140-400) Neutrophils (%) (Auto) 79 % (31-73) Lymphocytes (%) (Auto) 9 % (24-48) Monocytes (%) (Auto) 11 % (0-9) Eosinophils (%) (Auto) 0 % (0-3) Basophils (%) (Auto) 0 % (0-3) Neutrophils # (Auto) 8.3 x10^3/uL (1.8-7.7) Lymphocytes # (Auto) 1.0 x10^3/uL (1.0-4.8) Monocytes # (Auto) 1.2 x10^3/uL (0.0-1.1) Eosinophils # (Auto) 0.0 x10^3/uL (0.0-0.7) Basophils # (Auto) 0.0 x10^3/uL (0.0-0.2) Sodium Level 129 mmol/L (136-145) Potassium Level 4.3 mmol/L (3.5-5.1) Chloride Level 97 mmol/L (98-107) Carbon Dioxide Level 26 mmol/L (21-32) Anion Gap 6 (6-14) Blood Urea Nitrogen 10 mg/dL (8-26) Creatinine 0.9 mg/dL (0.7-1.3) Estimated GFR (Cockcroft-Gault) 108.5 BUN/Creatinine Ratio 11 (6-20) Glucose Level 135 mg/dL (70-99) Calcium Level 6.8 mg/dL (8.5-10.1) Total Bilirubin 0.7 mg/dL (0.2-1.0) Aspartate Amino Transf (AST/SGOT) 18 U/L (15-37) Alanine Aminotransferase (ALT/SGPT) 17 U/L (16-63) Alkaline Phosphatase 271 U/L (46-116) Total Protein 5.7 g/dL (6.4-8.2) Albumin 1.2 g/dL (3.4-5.0) Albumin/Globulin Ratio 0.3 (1.0-1.7) Glucose (Fingerstick) 64 mg/dL (70-99) 79 mg/dL (70-99) 95 mg/dL (70-99) Problem List Problems Medical Problems: (1) Pneumonia Status: Acute (2) Sepsis Status: Acute Assessment/Plan continue TF treatment of c diff will ask wound care to see for skin protection from drainage Justicifation of Admission Dx: Justifications for Admission: Justification of Admission Dx: Yes Comminuty Aquired Pneumonia: Med-High Risk Pt Sepsis: Infection KARLA CALL MD 10/27/19 1623: SURGICAL PROGRESS NOTE Assessment/Plan Pt seen and examined. Agree with Ms. Greenberg's note d/w pt and pt's pt main c/o is bloating abd soft, NTTP, distended cont TF and abx appreciate wound care. MAXIMILIANO GREENBERG APRN Oct 27, 2019 11:29 KARLA CALL MD Oct 27, 2019 16:23
--- NOTE | 2019-10-27 14:59 | NUR ---
SS following up with discharge planning. Script received for tube feeds for home. SS phoned and faxed script and clinical to [facility], ; fax [phone]. SS awaiting return call from [facility]. SS will continue to follow for discharge planning.
[2019-10-27 15:00] VITALS: BP 88/56
--- NOTE | 2019-10-27 15:45 | PDOC ---
PROGRESS NOTES Chief Complaint Chief Complaint A/P: RUQ abdominal pain - with recent h/o gallstone pancreatitis, will obtain abdominal US, consult GI and general surgery, well known to both services. CT abdomen/pelvis with significant ascites Leukocytosis - with tachcardia he meets SIRS criteria, given IVF and empiric levaquin for sepsis. I do not see signs of pneumonia. will f/u cultures, check stool Diarrhea - will collect stool, check for c. diff given correction antibiotic exposure as well as high WBC H/o recent Severe pancreatitis s/p ex-lap with pancreatic necrosectomy, cholecystostomy tube placement, gastrostomy tube placement, tracheostomy placement, 5 drains, 1.5L ascites drained - likely gallstone pancreatitis Status post tracheostomy - reversed, recovered Hyponatremia - will restart fluids Severe protein calorie malnutrition - would restart G-tube feeds if ok with general surgery, traffic or system dispatcher to see Physician deconditioning - will have PT/OT Hypocalcemia Hepatitis B LLL small effusion - still present. will obtain CT chest/abd/pelvis with contrast Hyperglycemia - cont insulin FEN - General diet PPX - lovenox FULL CODE Dispo - inpatient CVC. Low threshold for ICU transfer. History of Present Illness History of Present Illness Mr Mata is a 49yo M w/ PMHx pancreatitis s/p ex-lap with pancreatic necrose ctomy, gastrostomy tube placement, s/p tracheostomy, hepatitis B who returns to the hospital with his from home c/o diarrhea and RUQ pain that began on 10/21/2019. He was hospitalized for what was ultimately diagnosed as gallstone pancreatitis 06/11/2019-07/22/2019 [underwent hemodialysis for renal failure, stopped 07/04/2019, on 06/22/2019 is s/p ex-lap with pancreatic necrosectomy, cholecystostomy tube placement, gastrostomy tube placement, 5 drains, 1.5L ascites drained, and s/p tracheostomy at that time] and discharged to [facility] for further recovery. He reports he has been recovering at home with his . Has been off antibio tics since 07/31/2019. He has been short of breath but that is no different than it has been for the past 2 months. No cough no recent sick contacts. He is lost 60 pounds since prior to his May hospitalization. Labs: WBC 19.4, Hb 8.6, platelets 456, NA 131, K4.6, BUN 17, CR 0.9, glucose 130, lactic acid 2.2, albumin 1.8, alkaline phosphatase 283, calcium 7.9 lipase normal. CXR interpreted as atelectasis versus left lower lobe infiltrate, was dosed with Levaquin in ED. BP 98/54. Admitted for further care. 10/22: Overnight still with multiple BM. Had one accident with watery BM this morning. WBC 14.3 Hb 7 platelets 316, NA 133. Discussed with IR his left-sided pleural effusion loculations much smaller the rim is even smaller seems to be healing, but his abdominal ascites is significant and there is drainage. Tolerated tube feeds overnight well his appetite is low this morning. BP improved after decreasing his oxycodone dosing. He would like to stop taking gabapentin 10/23: Hb to 8.8 from 7 after 1 u PRBC. Having some back muscle spasms and pain. Overnight had bloating with his tube feeds. [place] Melgoza notes the wrong port has been used. Instructed patient and nursing on using jejunal port for feeding, not gastric port. C. DIFF POSITIVE. 10/24: Afebrile. Tolerated tube feeds overnight little less diarrhea no response on oral vancomycin. He has some rectal itching. Tachycardia. Blood pressure is a little better. Legs have swollen up. 10/25: Afebrile. Hemodynamically stable, less tachycardic. Pain is improved. Less diarrhea on oral vancomycin. Afebrile. Sodium 129. Blood pressures been low holding blood pressure m edications. Stools are more formed. He has been very tearful today feels like he is not making any progress. His is asked if she can learn how to do nocturnal tube feeds tonight. I have given permission for her to stay till 9 PM for visiting in order to accommodate this. Plan: Feed through J port Lidoderm and diclofenac for back pain Restarted metoprolol and lasix Cont vancomycin Rectal hydrocortisone Labs in AM May need 2 to 3 days additional hospital stay Vitals Vitals Vital Signs Date Time Temp Pulse Resp B/P (MAP) Pulse Ox O2 Delivery O2 Flow Rate FiO2 10/27/19 11:00 99.1 94 18 87/57 (67) 97 Room Air 99.1 Physical Exam General: Alert, Cooperative Heart: Regular rate, Normal S1, Normal S2 Lungs: Clear Abdomen: Other (distended) Extremities: No clubbing, No cyanosis, No edema, Normal pulses, No tenderness/swelling Skin: No rashes, No breakdown, No significant lesion Labs LABS Laboratory Tests Test 10/26/19 16:04 10/26/19 20:54 10/27/19 08:32 10/27/19 11:56 Glucose (Fingerstick) 64 mg/dL (70-99) 79 mg/dL (70-99) 95 mg/dL (70-99) 140 mg/dL (70-99) Assessment and Plan Assessmemt and Plan Problems Medical Problems: (1) Pneumonia Status: Acute (2) Sepsis Status: Acute Comment Review of Relevant I have reviewed the following items alexandra (where applicable) has been applied. Labs Laboratory Tests Test 10/25/19 16:15 10/25/19 20:52 10/26/19 07:18 10/26/19 11:12 Glucose (Fingerstick) 99 mg/dL (70-99) 122 mg/dL (70-99) 112 mg/dL (70-99) 152 mg/dL (70-99) Test 10/26/19 12:20 10/26/19 16:04 10/26/19 20:54 10/27/19 08:32 White Blood Count 10.5 x10^3/uL (4.0-11.0) Red Blood Count 3.22 x10^6/uL (4.30-5.70) Hemoglobin 8.5 g/dL (13.0-17.5) Hematocrit 25.7 % (39.0-53.0) Mean Corpuscular Volume 80 fL (79-100) Mean Corpuscular Hemoglobin 27 pg (25-35) Mean Corpuscular Hemoglobin Concent 33 g/dL (31-37) Red Cell Distribution Width 20.8 % (11.5-14.5) Platelet Count 300 x10^3/uL (140-400) Neutrophils (%) (Auto) 79 % (31-73) Lymphocytes (%) (Auto) 9 % (24-48) Monocytes (%) (Auto) 11 % (0-9) Eosinophils (%) (Auto) 0 % (0-3) Basophils (%) (Auto) 0 % (0-3) Neutrophils # (Auto) 8.3 x10^3/uL (1.8-7.7) Lymphocytes # (Auto) 1.0 x10^3/uL (1.0-4.8) Monocytes # (Auto) 1.2 x10^3/uL (0.0-1.1) Eosinophils # (Auto) 0.0 x10^3/uL (0.0-0.7) Basophils # (Auto) 0.0 x10^3/uL (0.0-0.2) Sodium Level 129 mmol/L (136-145) Potassium Level 4.3 mmol/L (3.5-5.1) Chloride Level 97 mmol/L (98-107) Carbon Dioxide Level 26 mmol/L (21-32) Anion Gap 6 (6-14) Blood Urea Nitrogen 10 mg/dL (8-26) Creatinine 0.9 mg/dL (0.7-1.3) Estimated GFR (Cockcroft-Gault) 108.5 BUN/Creatinine Ratio 11 (6-20) Glucose Level 135 mg/dL (70-99) Calcium Level 6.8 mg/dL (8.5-10.1) Total Bilirubin 0.7 mg/dL (0.2-1.0) Aspartate Amino Transf (AST/SGOT) 18 U/L (15-37) Alanine Aminotransferase (ALT/SGPT) 17 U/L (16-63) Alkaline Phosphatase 271 U/L (46-116) Total Protein 5.7 g/dL (6.4-8.2) Albumin 1.2 g/dL (3.4-5.0) Albumin/Globulin Ratio 0.3 (1.0-1.7) Glucose (Fingerstick) 64 mg/dL (70-99) 79 mg/dL (70-99) 95 mg/dL (70-99) Test 10/27/19 11:56 Glucose (Fingerstick) 140 mg/dL (70-99) Laboratory Tests Test 10/26/19 16:04 10/26/19 20:54 10/27/19 08:32 10/27/19 11:56 Glucose (Fingerstick) 64 mg/dL (70-99) 79 mg/dL (70-99) 95 mg/dL (70-99) 140 mg/dL (70-99) Microbiology 10/21/19 Blood Culture - Final, Complete NO GROWTH AFTER 5 DAYS Medications Current Medications Sodium Chloride 1,000 ml @ 1,000 mls/hr 1X ONCE IV Last administered on 10/21/19at 18:18; Start 10/21/19 at 18:00; Stop 10/21/19 at 18:59; Status DC Levofloxacin/ Dextrose 150 ml @ 100 mls/hr 1X ONCE IV Last administered on 10/21/19at 19:58; Start 10/21/19 at 19:45; Stop 10/21/19 at 21:14; Status DC Ondansetron HCl (Zofran) 4 mg PRN Q8HRS PRN IV NAUSEA/VOMITING; Start 10/21/19 at 20:30; Stop 10/22/19 at 07:58; Status DC Morphine Sulfate (Morphine Sulfate) 2 mg PRN Q2HR PRN IV PAIN; Start 10/21/19 at 20:30; Stop 10/22/19 at 07:58; Status DC Oxycodone HCl (Roxicodone) 15 mg PRN Q6HRS PRN PO PAIN Last administered on 10/22/19at 05:46; Start 10/21/19 at 21:00; Stop 10/22/19 at 11:30; Status DC Sodium Chloride 1,000 ml @ 1,000 mls/hr 1X ONCE IV Last administered on 10/20at 22:18; Start 10/21/19 at 22:30; Stop 10/21/19 at 23:29; Status DC Alprazolam (Xanax) 0.5 mg 1X ONCE PO Last administered on 10/21/19at 23:22; Start 10/21/19 at 23:30; Stop 10/21/19 at 23:31; Status DC Trazodone HCl (Desyrel) 50 mg 1X ONCE PO Last administered on 10/21/19at 23:22; Start 10/21/19 at 23:30; Stop 10/21/19 at 23:31; Status DC Morphine Sulfate (Morphine Sulfate) 2 mg PRN Q4HRS PRN IV MODERATE PAIN Last administered on 10/24/19at 00:28; Start 10/22/19 at 08:00; Stop 10/24/19 at 02:44; Status DC Ondansetron HCl (Zofran) 4 mg PRN Q4HRS PRN IV NAUSEA/VOMITING Last administered on 10/27/19 10:20; Start 10/22/19 at 08:00 Acetaminophen (Tylenol) 500 mg PRN Q6HRS PRN PO MILD PAIN / TEMP > 100.3'F Last administered on 10/22/19 09:22; Start 10/22/19 at 08:00 Buspirone HCl (Buspar) 10 mg BIDACBL PO Last administered on 10/22/19 11:17; Start 10/22/19 at 11:30; Stop 10/24/19 at 11:40; Status DC Ferrous Sulfate (Feosol) 325 mg BIDWMEALS PO Last administered on 10/27/19 09:51; Start 10/22/19 at 09:00 Gabapentin (Neurontin) 100 mg TID PO Last administered on 10/22/19 21:07; Start 10/22/19 at 09:00; Stop 10/23/19 at 11:16; Status DC Pantoprazole Sodium (Protonix) 40 mg DAILYAC PO Last administered on 10/27/19 08:33; Start 10/22/19 at 08:15 Trazodone HCl (Desyrel) 50 mg QHS PO Last administered on 10/26/19 21:53; Start 10/22/19 at 21:00 Insulin Glargine (Lantus Syringe) 5 unit QHS SQ Last administered on 10/22/19 21:13; Start 10/22/19 at 21:00 Non-Formulary Medication (Melatonin ) 2 tab QHS PO ; Start 10/22/19 at 21:00; Status UNV Insulin Human Lispro (HumaLOG) 0-7 UNITS TIDACHC SQ Last administered on 10/26/19 12:26; Start 10/22/19 at 11:30 Dextrose (Dextrose 50%-Water Syringe) 12.5 gm PRN Q15MIN PRN IV SEE COMMENTS; Start 10/22/19 at 08:00 Sodium Chloride 1,000 ml @ 1,000 mls/hr 1X ONCE IV Last administered on 10/22/19 11:17; Start 10/22/19 at 10:00; Stop 10/22/19 at 10:59; Status DC Lorazepam (Ativan Inj) 1 mg PRN Q5MIN PRN IVP ANXIETY / AGITATION Last administered on 10/25/19at 18:32; Start 10/22/19 at 11:00; Stop 10/25/19 at 18:34; Status DC Psyllium Hydrophilic Mucilloid (Metamucil Fiber Packet) 1 pkt QHS PO Last administered on 10/26/19at 21:53; Start 10/22/19 at 21:00 Iohexol (Omnipaque 240 Mg/ml) 30 ml 1X ONCE PO Last administered on 10/22/19at 11:00; Start 10/22/19 at 11:00; Stop 10/22/19 at 11:01; Status DC Iohexol (Omnipaque 300 Mg/ml) 75 ml 1X ONCE IV Last administered on 10/22/19at 11:00; Start 10/22/19 at 11:00; Stop 10/22/19 at 11:01; Status DC Info (CONTRAST GIVEN -- Rx MONITORING) 1 each PRN DAILY PRN MC SEE COMMENTS; Start 10/22/19 at 11:15; Stop 10/24/19 at 11:14; Status DC Enoxaparin Sodium (Lovenox 40mg Syringe) 40 mg Q24H SQ ; Start 10/22/19 at 12:00; Stop 10/22/19 at 15:51; Status DC Oxycodone HCl (Roxicodone) 5 mg PRN Q6HRS PRN PO MODERATE PAIN 4-6 (USE 1ST) Last administered on 10/27/19at 06:11; Start 10/22/19 at 11:30 Piperacillin Sod/ Tazobactam Sod 3.375 gm/Sodium Chloride 50 ml @ 100 mls/hr Q6HRS IV Last administered on 10/24/19at 12:08; Start 10/22/19 at 16:00; Stop 10/24/19 at 16:43; Status DC Piperacillin Sod/ Tazobactam Sod (Zosyn Per Pharmacy) 1 each PRN DAILY PRN MC SEE COMMENTS; Start 10/22/19 at 16:00; Stop 10/24/19 at 17:17; Status DC Vancomycin HCl (Vancomycin Oral Solution) 125 mg [id number] JT Last administered on 10/27/19at 14:10; Start 10/23/19 at 17:00 Sodium Chloride 1,000 ml @ 100 mls/hr 1X ONCE IV Last administered on 10/24/19 03:10; Start 10/24/19 at 03:00; Stop 10/24/19 at 12:59; Status DC Morphine Sulfate (Morphine Sulfate) 4 mg PRN Q3HRS PRN IV PAIN Last administe red on 10/27/19 10:06; Start 10/24/19 at 03:00 Lidocaine (Lidoderm) 1 patch DAILY TD Last administered on 10/25/19 09:04; St art 10/24/19 at 12:00; Stop 10/25/19 at 16:18; Status DC Diclofenac Sodium (Voltaren) 1 devorah BID TP Last administered on 10/27/19 09:58; Start 10/24/19 at 12:00 Miscellaneous (Lidoderm Patch Removal) 1 ea QHS MC Last administered on 10/25/19 21:00; Start 10/24/19 at 21:00; Stop 10/25/19 at 22:00; Status DC Buspirone HCl (Buspar) 10 mg PRN QID PRN PO anxiety; Start 10/24/19 at 11:45 Enoxaparin Sodium (Lovenox 40mg Syringe) 40 mg Q24H SQ Last administered on 10/26/19 17:54; Start 10/24/19 at 17:00 Furosemide (Lasix) 20 mg DAILY PO Last administered on 10/25/19 13:23; Start 10/25/19 at 13:00 Metoprolol Tartrate (Lopressor) 25 mg BID PO Last administered on 10/26/19 21:53; Start 10/25/19 at 13:00 Phenyleph/Shark Oil/Min Oil/Petrol (Preparation H) 1 devorah PRN QID PRN RC RECTAL PAIN Last administered on 10/27/19 09:54; Start 10/25/19 at 12:45 Lidocaine (Lidoderm) 1 patch QHS TD Last administered on 10/26/19 21:54; Start 10/26/19 at 21:00 Lactobacillus Rhamnosus (Culturelle) 1 cap BID PO Last administered on 10/27/19 09:51; Start 10/25/19 at 21:00 Miscellaneous (Lidoderm Patch Removal) 1 ea DAILY MC Last administered on 7/13/ 20at 09:00; Start 10/27/19 at 09:00 Active Scripts Active Reported Buspirone Hcl 10 Mg Tablet 1 Tab PO BIDACBL Alprazolam 0.5 Mg Tablet 1 Tab PO HS Acetaminophen 500 Mg Tablet 1 Tab PO PRN Q6HRS PRN 15 Days Levemir (Insulin Detemir) 100 Unit/1 Ml Vial 5 Unit SQ DAILY PRN 5 units daily in morning if bs greater than 200. Oxycodone Hcl Immed.release (Oxycodone Hcl) 15 Mg Tablet 15 Mg PO PRN Q6HRS PRN Ferrous Sulfate 325 Mg Tablet 65 Mg PO BID Metformin Hcl 500 Mg Tablet 500 Mg PO BIDWMEALS Amlodipine Besylate 10 Mg Tablet 10 Mg PO DAILY Pantoprazole Sodium (Pantoprazole Sodium) 40 Mg Tablet.dr 40 Mg PO DAILYAC Trazodone Hcl 50 Mg Tablet 1 Tab PO QHS Furosemide 20 Mg Tablet 1 Tab PO DAILY Gabapentin (Gabapentin) 100 Mg Capsule 100 Mg PO TID Metoprolol Tartrate 100 Mg Tablet 1 Tab PO BID Melatonin 3 Mg Tablet 2 Tab PO QHS Vitals/I & O Vital Sign - Last 24 Hours 10/26/19 10/26/19 10/26/19 10/26/19 15:29 15:59 19:21 20:00 Temp 98.0 98.0 Pulse 103 Resp 18 B/P (MAP) 107/68 (81) Pulse Ox 100 O2 Delivery Room Air Room Air Room Air Room Air 10/26/19 10/26/19 10/26/19 10/26/19 21:52 21:52 21:53 22:21 Temp 98.3 98.3 Pulse 103 97 Resp 20 20 18 B/P (MAP) 107/68 92/60 (71) Pulse Ox 97 O2 Delivery Room Air Room Air Room Air 10/27/19 10/27/19 10/27/19 10/27/19 02:56 04:52 06:11 07:00 Temp 98.4 98.4 98.4 98.4 Pulse 90 106 Resp 18 22 18 18 B/P (MAP) 91/98 (96) 91/68 (76) Pulse Ox 98 99 O2 Delivery Room Air Room Air Room Air Room Air 7/13/20 7/13/20 7/13/20 7/13/20 08:00 09:00 10:06 11:00 Temp 99.1 99.1 Pulse 98 94 Resp 18 B/P (MAP) 92/65 87/57 (67) Pulse Ox 97 O2 Delivery Room Air Room Air Room Air Intake and Output 10/26/19 10/26/19 10/27/19 15:00 23:00 07:00 Intake Total 1200 ml 800 ml Output Total 100 ml 50 ml 350 ml Balance 1100 ml 750 ml -350 ml Nutrition Consultation Dietary Evaluation: Recommendations by RD: Dietary education by RD, Increase Calorie Intake, Protein supplementation, Add supplement feedings Comments: Continue w/ADA diet w/supplements as ordered, however ok per RD to liberalize diet as needed to honor food preferences and promote PO intake; obtained dinner order from pt REC adjust TFs to following: Osmolite 1.2@30 ml/hr, increase 10 ml q8 hrs as tolerated to goal rate 60 ml/hr w/100 ml water flushes q4 hrs; feeding and water flushes infusing x12 hours overnight. Clarified TF formula and plan w/RN (Jane) and w/diet office Expected Outcomes/Goals: nutritition intake to meet >75% est needs - not met, goal ongoing Interpretation of weight loss: >7.5% in 3 months Malnutrition Findings: Food and Nutrition Intake (Sev: <50% est energy req 5days Weight Status: Appropriate Justicifation of Admission Dx: Justifications for Admission: Justification of Admission Dx: Yes Comminuty Aquired Pneumonia: Med-High Risk Pt Sepsis: Infection JUAN ANTONIO OWUSU MD Oct 27, 2019 15:44
--- NOTE | 2019-10-27 16:07 | NUR ---
[facility] following up with discharge planning. Prakash, ; fax [phone], contacted [facility] and reported that they have received order and all needed clinical. They reported that they are currently verifying insurance benefits and they will contact pt's spouse to schedule teaching. [facility] will continue to follow for discharge planning.
[2019-10-27] MEDS: ENOXAPARIN 40 MG/0.4 ML SYRINGE. SQ SCH (17:00)
--- NOTE | 2019-10-27 19:02 | NUR ---
Wound Care Pt has old drain site on right ABD that is draining, skin is macerated and dark red. Taught patient about treatment options, including an ostomy bag to catch drainage. Pt chose to try crusting with skin prep and ostomy powder and gauze to catch drainage, will check back tomorrow to see how his skin feels. No other wounds noted.
[2019-10-27 19:56] VITALS: BP 95/62
[2019-10-27] MEDS: INSULIN GLARGINE SYRINGE. SQ SCH (20:48)
[2019-10-27] MEDS: MIRTAZAPINE 15 MG TABLET PO SCH (20:50)
[2019-10-27] MEDS: PSYLLIUM HUSK (SUGAR FREE) 1 PKT PACKET PO SCH (20:50)
[2019-10-27] MEDS: traZODone 50 MG TABLET. PO SCH (20:50)
[2019-10-27] MEDS: LIDOCAINE (700MG/PATCH) PATCH. TD SCH (20:51)
--- NOTE | 2019-10-27 21:00 | NUR ---
This RN attempted to flush the patients J-tube in order to hook the patient up to his nightly tube feedings. However, the patient's J-tube is completely clogged at this time. This RN attempted to flush the patient's tube with hot water and with cola, no success. Multiple nurses attempted to unclogged the J-tube. This RN was advised to leave some Cola in the patient's J-tube to sit and hopefully soften the clog. This RN will continue to monitor the patient at this time and attempt to unclog the patient's J-tube again. Addendum: 10/28/19 at 0059 by KEN GARCIA RN This RN attempted to unclog the patient J-tube again at this time. There has been some progression with unclogging at this time. However the tube is still clogged enough that no fluids can pass through the tube. This RN left some cola in the J-tube at this time in an attempt to soften the clog even more. This RN will continue to monitor the patient at this time and attempt to unclog the J-tube again at a later time.
[2019-10-27 22:07] VITALS: BP 101/67
[2019-10-28] MEDS: oxyCODONE IR 5 MG TABLET PO PRN ×3 (01:44→16:57)
--- NOTE | 2019-10-28 01:50 | NUR ---
at this time this RN examined the patient's J-tube. Upon inspection the J-tube looks cleared of the clog, however, the patient is currently refusing for this RN to attempt to flush the patient's J-Tube. This RN explained to the patient that the this RN needed to try and flush the J-tube with water to assesses if the clog was dissolved so that the tube feeding could be started on the patient. The patient continues to refuse and states that his stomach hurts too much to be "messing with his tube". Pain and nausea medications were given to the patient at this time as well. Patient states that he does not want the tube feeding to be started at all tonight. This RN will continue to monitor the patient and reassess the patient's pain frequently. This RN will attempt to flush the patient's J-tube again by morning.
[2019-10-28] MEDS: ONDANSETRON PF 4 MG/2 ML VIAL. IV PRN ×3 (01:52→21:15)
[2019-10-28] MEDS: MORPHINE SULFATE 4 MG/ML VIAL. IV PRN ×4 (01:52→21:16)
[2019-10-28 03:46] VITALS: BP 102/64
[2019-10-28 07:00] VITALS: BP 116/78
[2019-10-28] MEDS: INSULIN LISPRO 300 UNITS/3 ML VIAL. SQ SCH ×4 (07:30→21:00)
[2019-10-28] MEDS: PANTOPRAZOLE 40 MG TABLET.DR. PO SCH (07:30)
[2019-10-28 08:27] LABS: ALBUMIN 1.4 g/dL (3.4-5.0); ALBUMIN/GLOBULIN RATIO 0.3 (1.0-1.7); CALCIUM 7.6 mg/dL (8.5-10.1); CREATININE 0.8 mg/dL (0.7-1.3); GFR 124.3; POTASSIUM 4.4 mmol/L (3.5-5.1); TOTAL BILIRUBIN 0.8 mg/dL (0.2-1.0); TOTAL PROTEIN 6.6 g/dL (6.4-8.2)
[2019-10-28 08:44] LABS: BASO % 0 % (0-3); EOS % 0 % (0-3); HEMATOCRIT 27.4 % (39.0-53.0); HEMOGLOBIN 8.8 g/dL (13.0-17.5); LYMPH # 1.1 x10^3/uL (1.0-4.8); LYMPH % 8 % (24-48); MEAN CORPUSCULAR HEMOGLOBIN 26 pg (25-35); MEAN CORPUSCULAR HGB CONC 32 g/dL (31-37); MEAN CORPUSCULAR VOLUME 81 fL (79-100); MONO # 1.1 x10^3/uL (0.0-1.1); MONO % 8 % (0-9); NEUT # 11.7 x10^3/uL (1.8-7.7); NEUT % 84 % (31-73); PLATELET COUNT 353 x10^3/uL (140-400); RED BLOOD COUNT 3.39 x10^6/uL (4.30-5.70); RED CELL DISTRIBUTION WIDTH 21.4 % (11.5-14.5); WHITE BLOOD COUNT 13.9 x10^3/uL (4.0-11.0)
[2019-10-28] MEDS: DICLOFENAC SODIUM 1% TOPICAL GEL 100GM TUBE. TP SCH ×2 (09:00→21:14)
[2019-10-28] MEDS: PATCH REMOVAL. MC SCH (09:00)
[2019-10-28] MEDS: FERROUS SULFATE 325 MG TABLET. PO SCH ×2 (09:49→16:56)
[2019-10-28] MEDS: LACTOBACILLUS RHAMNOSUS GG 1 CAPSULE. PO SCH ×2 (09:49→21:12)
[2019-10-28] MEDS: FUROSEMIDE 20 MG TABLET PO SCH (09:49)
--- NOTE | 2019-10-28 09:49 | PDOC ---
MAXIMILIANO GREENBERG [employer]OTHERS HELPER 10/28/19 0949: SURGICAL PROGRESS NOTE Subjective had a lot of abdominal pain last night better this AM stools less Vital Signs Vital Signs Date Time Temp Pulse Resp B/P (MAP) Pulse Ox O2 Delivery O2 Flow Rate FiO2 10/28/19 07:00 97.6 131 20 116/78 (91) 97 Room Air 97.6 I&O Intake and Output 10/28/19 07:00 Intake Total 1151 ml Output Total 650 ml Balance 501 ml Intake Oral 600 ml Tube Feeding 351 ml Other 200 ml Output Urine Total 650 ml # Bowel Movements 2 General: Alert, Cooperative Abdomen: Other (distended ) Labs Laboratory Tests Test 10/26/19 11:12 10/26/19 12:20 10/26/19 16:04 10/26/19 20:54 Glucose (Fingerstick) 152 mg/dL (70-99) 64 mg/dL (70-99) 79 mg/dL (70-99) White Blood Count 10.5 x10^3/uL (4.0-11.0) Red Blood Count 3.22 x10^6/uL (4.30-5.70) Hemoglobin 8.5 g/dL (13.0-17.5) Hematocrit 25.7 % (39.0-53.0) Mean Corpuscular Volume 80 fL (79-100) Mean Corpuscular Hemoglobin 27 pg (25-35) Mean Corpuscular Hemoglobin Concent 33 g/dL (31-37) Red Cell Distribution Width 20.8 % (11.5-14.5) Platelet Count 300 x10^3/uL (140-400) Neutrophils (%) (Auto) 79 % (31-73) Lymphocytes (%) (Auto) 9 % (24-48) Monocytes (%) (Auto) 11 % (0-9) Eosinophils (%) (Auto) 0 % (0-3) Basophils (%) (Auto) 0 % (0-3) Neutrophils # (Auto) 8.3 x10^3/uL (1.8-7.7) Lymphocytes # (Auto) 1.0 x10^3/uL (1.0-4.8) Monocytes # (Auto) 1.2 x10^3/uL (0.0-1.1) Eosinophils # (Auto) 0.0 x10^3/uL (0.0-0.7) Basophils # (Auto) 0.0 x10^3/uL (0.0-0.2) Sodium Level 129 mmol/L (136-145) Potassium Level 4.3 mmol/L (3.5-5.1) Chloride Level 97 mmol/L (98-107) Carbon Dioxide Level 26 mmol/L (21-32) Anion Gap 6 (6-14) Blood Urea Nitrogen 10 mg/dL (8-26) Creatinine 0.9 mg/dL (0.7-1.3) Estimated GFR (Cockcroft-Gault) 108.5 BUN/Creatinine Ratio 11 (6-20) Glucose Level 135 mg/dL (70-99) Calcium Level 6.8 mg/dL (8.5-10.1) Total Bilirubin 0.7 mg/dL (0.2-1.0) Aspartate Amino Transf (AST/SGOT) 18 U/L (15-37) Alanine Aminotransferase (ALT/SGPT) 17 U/L (16-63) Alkaline Phosphatase 271 U/L (46-116) Total Protein 5.7 g/dL (6.4-8.2) Albumin 1.2 g/dL (3.4-5.0) Albumin/Globulin Ratio 0.3 (1.0-1.7) Test 10/27/19 08:32 10/27/19 11:56 10/27/19 16:55 10/27/19 20:46 Glucose (Fingerstick) 95 mg/dL (70-99) 140 mg/dL (70-99) 109 mg/dL (70-99) 98 mg/dL (70-99) Test 10/28/19 04:20 10/28/19 07:43 White Blood Count 13.9 x10^3/uL (4.0-11.0) Red Blood Count 3.39 x10^6/uL (4.30-5.70) Hemoglobin 8.8 g/dL (13.0-17.5) Hematocrit 27.4 % (39.0-53.0) Mean Corpuscular Volume 81 fL (79-100) Mean Corpuscular Hemoglobin 26 pg (25-35) Mean Corpuscular Hemoglobin Concent 32 g/dL (31-37) Red Cell Distribution Width 21.4 % (11.5-14.5) Platelet Count 353 x10^3/uL (140-400) Neutrophils (%) (Auto) 84 % (31-73) Lymphocytes (%) (Auto) 8 % (24-48) Monocytes (%) (Auto) 8 % (0-9) Eosinophils (%) (Auto) 0 % (0-3) Basophils (%) (Auto) 0 % (0-3) Neutrophils # (Auto) 11.7 x10^3/uL (1.8-7.7) Lymphocytes # (Auto) 1.1 x10^3/uL (1.0-4.8) Monocytes # (Auto) 1.1 x10^3/uL (0.0-1.1) Eosinophils # (Auto) 0.0 x10^3/uL (0.0-0.7) Basophils # (Auto) 0.0 x10^3/uL (0.0-0.2) Sodium Level 132 mmol/L (136-145) Potassium Level 4.4 mmol/L (3.5-5.1) Chloride Level 98 mmol/L (98-107) Carbon Dioxide Level 27 mmol/L (21-32) Anion Gap 7 (6-14) Blood Urea Nitrogen 8 mg/dL (8-26) Creatinine 0.8 mg/dL (0.7-1.3) Estimated GFR (Cockcroft-Gault) 124.3 BUN/Creatinine Ratio 10 (6-20) Glucose Level 69 mg/dL (70-99) Calcium Level 7.6 mg/dL (8.5-10.1) Total Bilirubin 0.8 mg/dL (0.2-1.0) Aspartate Amino Transf (AST/SGOT) 22 U/L (15-37) Alanine Aminotransferase (ALT/SGPT) 13 U/L (16-63) Alkaline Phosphatase 305 U/L (46-116) Total Protein 6.6 g/dL (6.4-8.2) Albumin 1.4 g/dL (3.4-5.0) Albumin/Globulin Ratio 0.3 (1.0-1.7) Glucose (Fingerstick) 79 mg/dL (70-99) Laboratory Tests Test 10/27/19 11:56 10/27/19 16:55 10/27/19 20:46 10/28/19 04:20 Glucose (Fingerstick) 140 mg/dL (70-99) 109 mg/dL (70-99) 98 mg/dL (70-99) White Blood Count 13.9 x10^3/uL (4.0-11.0) Red Blood Count 3.39 x10^6/uL (4.30-5.70) Hemoglobin 8.8 g/dL (13.0-17.5) Hematocrit 27.4 % (39.0-53.0) Mean Corpuscular Volume 81 fL (79-100) Mean Corpuscular Hemoglobin 26 pg (25-35) Mean Corpuscular Hemoglobin Concent 32 g/dL (31-37) Red Cell Distribution Width 21.4 % (11.5-14.5) Platelet Count 353 x10^3/uL (140-400) Neutrophils (%) (Auto) 84 % (31-73) Lymphocytes (%) (Auto) 8 % (24-48) Monocytes (%) (Auto) 8 % (0-9) Eosinophils (%) (Auto) 0 % (0-3) Basophils (%) (Auto) 0 % (0-3) Neutrophils # (Auto) 11.7 x10^3/uL (1.8-7.7) Lymphocytes # (Auto) 1.1 x10^3/uL (1.0-4.8) Monocytes # (Auto) 1.1 x10^3/uL (0.0-1.1) Eosinophils # (Auto) 0.0 x10^3/uL (0.0-0.7) Basophils # (Auto) 0.0 x10^3/uL (0.0-0.2) Sodium Level 132 mmol/L (136-145) Potassium Level 4.4 mmol/L (3.5-5.1) Chloride Level 98 mmol/L (98-107) Carbon Dioxide Level 27 mmol/L (21-32) Anion Gap 7 (6-14) Blood Urea Nitrogen 8 mg/dL (8-26) Creatinine 0.8 mg/dL (0.7-1.3) Estimated GFR (Cockcroft-Gault) 124.3 BUN/Creatinine Ratio 10 (6-20) Glucose Level 69 mg/dL (70-99) Calcium Level 7.6 mg/dL (8.5-10.1) Total Bilirubin 0.8 mg/dL (0.2-1.0) Aspartate Amino Transf (AST/SGOT) 22 U/L (15-37) Alanine Aminotransferase (ALT/SGPT) 13 U/L (16-63) Alkaline Phosphatase 305 U/L (46-116) Total Protein 6.6 g/dL (6.4-8.2) Albumin 1.4 g/dL (3.4-5.0) Albumin/Globulin Ratio 0.3 (1.0-1.7) Test 10/28/19 07:43 Glucose (Fingerstick) 79 mg/dL (70-99) Problem List Problems Medical Problems: (1) Pneumonia Status: Acute (2) Sepsis Status: Acute Assessment/Plan jtube unclogged per RN, pt did not do TF last night continue c diff treatment Justicifation of Admission Dx: Justifications for Admission: Justification of Admission Dx: Yes Comminuty Aquired Pneumonia: Med-High Risk Pt Sepsis: Infection KARLA CALL MD 10/28/19 1513: SURGICAL PROGRESS NOTE Assessment/Plan Pt seen and examined. Agree with Ms. Greenberg's note Pt with pain secondary to tube clog last night better today, ate baked potatoe cont tube feeds and c diff treatment. MAXIMILIANO GREENBERG APRN Oct 28, 2019 09:49 KARLA CALL MD Oct 28, 2019 15:13
[2019-10-28] MEDS: METOPROLOL TART IMMED RELEASE 25 MG TABLET. PO SCH ×2 (09:50→21:12)
[2019-10-28] MEDS: VANCOMYCIN 125 MG/2.5 ML ORAL SOLUTION. JT SCH ×4 (09:50→21:12)
--- NOTE | 2019-10-28 10:44 | NUR ---
SS following up with discharge planning. SS reviewed pt chart and discussed with pt RN. Pt currently on room air. SS received notification from [facility], ; fax [phone], that insurance has approved tube feeding and supplies and they are ready for delivery once discharged. SS met with pt and pt's spouse in room and discussed. Pt and pt's spouse provided with contact information for [facility]. Pt and pt's spouse agreeable to home healthcare with no preference of company. Per RN, pt has significant leakage from JOSE site and surgery and physician may not discharge today. SS will continue to follow for discharge planning.
[2019-10-28 11:00] VITALS: BP 97/70
--- NOTE | 2019-10-28 12:05 | PDOC ---
Subjective: Subjective: Doing okay, abd sore. Some drainage from right abdomen. Says wound care coming tomorrow. Objective: Objective: Reviewed chart - J tube clogged last night. Vital Signs: Vital Signs Date Time Temp Pulse Resp B/P (MAP) Pulse Ox O2 Delivery O2 Flow Rate FiO2 10/28/19 09:58 Room Air 10/28/19 09:50 116 116/78 10/28/19 07:00 97.6 20 97 97.6 Labs: Laboratory Tests Test 10/27/19 16:55 10/27/19 20:46 10/28/19 04:20 10/28/19 07:43 Glucose (Fingerstick) 109 mg/dL 98 mg/dL 79 mg/dL White Blood Count 13.9 x10^3/uL Red Blood Count 3.39 x10^6/uL Hemoglobin 8.8 g/dL Hematocrit 27.4 % Mean Corpuscular Volume 81 fL Mean Corpuscular Hemoglobin 26 pg Mean Corpuscular Hemoglobin Concent 32 g/dL Red Cell Distribution Width 21.4 % Platelet Count 353 x10^3/uL Neutrophils (%) (Auto) 84 % Lymphocytes (%) (Auto) 8 % Monocytes (%) (Auto) 8 % Eosinophils (%) (Auto) 0 % Basophils (%) (Auto) 0 % Neutrophils # (Auto) 11.7 x10^3/uL Lymphocytes # (Auto) 1.1 x10^3/uL Monocytes # (Auto) 1.1 x10^3/uL Eosinophils # (Auto) 0.0 x10^3/uL Basophils # (Auto) 0.0 x10^3/uL Sodium Level 132 mmol/L Potassium Level 4.4 mmol/L Chloride Level 98 mmol/L Carbon Dioxide Level 27 mmol/L Anion Gap 7 Blood Urea Nitrogen 8 mg/dL Creatinine 0.8 mg/dL Estimated GFR (Cockcroft-Gault) 124.3 BUN/Creatinine Ratio 10 Glucose Level 69 mg/dL Calcium Level 7.6 mg/dL Total Bilirubin 0.8 mg/dL Aspartate Amino Transf (AST/SGOT) 22 U/L Alanine Aminotransferase (ALT/SGPT) 13 U/L Alkaline Phosphatase 305 U/L Total Protein 6.6 g/dL Albumin 1.4 g/dL Albumin/Globulin Ratio 0.3 PE: GEN: chronically ill LUNGS: CTAB HEART: tachycardic ABD: distended, uncomfortable, tubes NEURO/PSYCH: A & O 3 A/P: Recent pancreatic necrosectomy C Diff diarrhea - on vanco -- J tube unclogged. Order for drainage from right upper abdeomn to be sent for amylase (if able). Continue vanco. Justicifation of Admission Dx: Justifications for Admission: Justification of Admission Dx: Yes Comminuty Aquired Pneumonia: Med-High Risk Pt Sepsis: Infection PAXTON ALEXANDER Oct 28, 2019 12:05
--- NOTE | 2019-10-28 13:42 | PDOC ---
PROGRESS NOTES Chief Complaint Chief Complaint A/P: RUQ abdominal pain - with recent h/o gallstone pancreatitis, will obtain abdominal US, consult GI and general surgery, well known to both services. CT abdomen/pelvis with significant ascites Leukocytosis - with tachcardia he meets SIRS criteria, given IVF and empiric levaquin for sepsis. I do not see signs of pneumonia. will f/u cultures, check stool Diarrhea - will collect stool, check for c. diff given long-term antibiotic exposure as well as high WBC H/o recent Severe pancreatitis s/p ex-lap with pancreatic necrosectomy, cholecystostomy tube placement, gastrostomy tube placement, tracheostomy placement, 5 drains, 1.5L ascites drained - likely gallstone pancreatitis Status post tracheostomy - reversed, recovered Hyponatremia - will restart fluids Severe protein calorie malnutrition - would restart G-tube feeds if ok with general surgery, supplier quality specialist to see Physician deconditioning - will have PT/OT Hypocalcemia Hepatitis B LLL small effusion - still present. will obtain CT chest/abd/pelvis with contrast Hyperglycemia - cont insulin FEN - General diet PPX - lovenox FULL CODE History of Present Illness History of Present Illness Mr Mata is a 49yo M w/ PMHx pancreatitis s/p ex-lap with pancreatic necrosectomy, gastrostomy tube placement, s/p tracheostomy, hepatitis B who returns to the hospital with his from home c/o diarrhea and RUQ pain that began on 10/21/2019. He was hospitalized for what was ultimately diagnosed as gallstone pancreatitis 06/11/2019-07/22/2019 [underwent hemodialysis for renal failure, stopped 07/04/2019, on 06/22/2019 is s/p ex-lap with pancreatic necrosectomy, cholecystostomy tube placement, gastrostomy tube placement, 5 drains, 1.5L ascites drained, and s/p tracheostomy at that time] and discharged to [facility] for further recovery. He reports he has been recovering at home with his . Has been off antibiotics since 07/31/2019. He has been short of breath but that is no different than it has been for the past 2 months. No cough no recent sick contacts. He is lost 60 pounds since prior to his May hospitalization. Labs: WBC 19.4, Hb 8.6, platelets 456, NA 131, K4.6, BUN 17, CR 0.9, glucose 130, lactic acid 2.2, albumin 1.8, alkaline phosphatase 283, calcium 7.9 lipase normal. CXR interpreted as atelectasis versus left lower lobe infiltrate, was dosed with Levaquin in ED. BP 98/54. Admitted for further care. 10/22: Overnight still with multiple BM. Had one accident with watery BM this morning. WBC 14.3 Hb 7 platelets 316, NA 133. Discussed with IR his left-sided pleural effusion loculations much smaller the rim is even smaller seems to be healing, but his abdominal ascites is significant and there is drainage. Tolerated tube feeds overnight well his appetite is low this morning. BP improved after decreasing his oxycodone dosing. He would like to stop taking gabapentin 10/23: Hb to 8.8 from 7 after 1 u PRBC. Having some back muscle spasms and pain. Overnight had bloating with his tube feeds. [place] Melgoza notes the wrong port has been used. Instructed patient and nursing on using jejunal port for feeding, not gastric port. C. DIFF POSITIVE. 10/24: Afebrile. Tolerated tube feeds overnight little less diarrhea no response on oral vancomycin. He has some rectal itching. Tachycardia. Blood pressure is a little better. Legs have swollen up. 10/25: Afebrile. Hemodynamically stable, less tachycardic. Pain is improved. Less diarrhea on oral vancomycin. Plan: j tube unclogged. did not get tf last night Feed through J port Lidoderm and diclofenac for back pain Restarted metoprolol and lasix Cont vancomycin Rectal hydrocortisone Labs in AM May need 2 to 3 days additional hospital stay Vitals Vitals Vital Signs Date Time Temp Pulse Resp B/P (MAP) Pulse Ox O2 Delivery O2 Flow Rate FiO2 10/28/19 11:00 98.1 113 18 97/70 (79) 96 Room Air 98.1 Physical Exam General: Alert, Cooperative Heart: Regular rate, Normal S1, Normal S2 Lungs: Clear Abdomen: Other (distended ) Extremities: No clubbing, No cyanosis, No edema, Normal pulses, No tenderness/swelling Skin: No rashes, No breakdown, No significant lesion Labs LABS Laboratory Tests Test 10/27/19 16:55 10/27/19 20:46 10/28/19 04:20 10/28/19 07:43 Glucose (Fingerstick) 109 mg/dL (70-99) 98 mg/dL (70-99) 79 mg/dL (70-99) White Blood Count 13.9 x10^3/uL (4.0-11.0) Red Blood Count 3.39 x10^6/uL (4.30-5.70) Hemoglobin 8.8 g/dL (13.0-17.5) Hematocrit 27.4 % (39.0-53.0) Mean Corpuscular Volume 81 fL (79-100) Mean Corpuscular Hemoglobin 26 pg (25-35) Mean Corpuscular Hemoglobin Concent 32 g/dL (31-37) Red Cell Distribution Width 21.4 % (11.5-14.5) Platelet Count 353 x10^3/uL (140-400) Neutrophils (%) (Auto) 84 % (31-73) Lymphocytes (%) (Auto) 8 % (24-48) Monocytes (%) (Auto) 8 % (0-9) Eosinophils (%) (Auto) 0 % (0-3) Basophils (%) (Auto) 0 % (0-3) Neutrophils # (Auto) 11.7 x10^3/uL (1.8-7.7) Lymphocytes # (Auto) 1.1 x10^3/uL (1.0-4.8) Monocytes # (Auto) 1.1 x10^3/uL (0.0-1.1) Eosinophils # (Auto) 0.0 x10^3/uL (0.0-0.7) Basophils # (Auto) 0.0 x10^3/uL (0.0-0.2) Sodium Level 132 mmol/L (136-145) Potassium Level 4.4 mmol/L (3.5-5.1) Chloride Level 98 mmol/L (98-107) Carbon Dioxide Level 27 mmol/L (21-32) Anion Gap 7 (6-14) Blood Urea Nitrogen 8 mg/dL (8-26) Creatinine 0.8 mg/dL (0.7-1.3) Estimated GFR (Cockcroft-Gault) 124.3 BUN/Creatinine Ratio 10 (6-20) Glucose Level 69 mg/dL (70-99) Calcium Level 7.6 mg/dL (8.5-10.1) Total Bilirubin 0.8 mg/dL (0.2-1.0) Aspartate Amino Transf (AST/SGOT) 22 U/L (15-37) Alanine Aminotransferase (ALT/SGPT) 13 U/L (16-63) Alkaline Phosphatase 305 U/L (46-116) Total Protein 6.6 g/dL (6.4-8.2) Albumin 1.4 g/dL (3.4-5.0) Albumin/Globulin Ratio 0.3 (1.0-1.7) Test 10/28/19 12:10 Glucose (Fingerstick) 112 mg/dL (70-99) Assessment and Plan Assessmemt and Plan Problems Medical Problems: (1) Pneumonia Status: Acute (2) Sepsis Status: Acute Comment Review of Relevant I have reviewed the following items alexandra (where applicable) has been applied. Labs Laboratory Tests Test 10/26/19 16:04 10/26/19 20:54 10/27/19 08:32 10/27/19 11:56 Glucose (Fingerstick) 64 mg/dL (70-99) 79 mg/dL (70-99) 95 mg/dL (70-99) 140 mg/dL (70-99) Test 10/27/19 16:55 10/27/19 20:46 10/28/19 04:20 10/28/19 07:43 Glucose (Fingerstick) 109 mg/dL (70-99) 98 mg/dL (70-99) 79 mg/dL (70-99) White Blood Count 13.9 x10^3/uL (4.0-11.0) Red Blood Count 3.39 x10^6/uL (4.30-5.70) Hemoglobin 8.8 g/dL (13.0-17.5) Hematocrit 27.4 % (39.0-53.0) Mean Corpuscular Volume 81 fL (79-100) Mean Corpuscular Hemoglobin 26 pg (25-35) Mean Corpuscular Hemoglobin Concent 32 g/dL (31-37) Red Cell Distribution Width 21.4 % (11.5-14.5) Platelet Count 353 x10^3/uL (140-400) Neutrophils (%) (Auto) 84 % (31-73) Lymphocytes (%) (Auto) 8 % (24-48) Monocytes (%) (Auto) 8 % (0-9) Eosinophils (%) (Auto) 0 % (0-3) Basophils (%) (Auto) 0 % (0-3) Neutrophils # (Auto) 11.7 x10^3/uL (1.8-7.7) Lymphocytes # (Auto) 1.1 x10^3/uL (1.0-4.8) Monocytes # (Auto) 1.1 x10^3/uL (0.0-1.1) Eosinophils # (Auto) 0.0 x10^3/uL (0.0-0.7) Basophils # (Auto) 0.0 x10^3/uL (0.0-0.2) Sodium Level 132 mmol/L (136-145) Potassium Level 4.4 mmol/L (3.5-5.1) Chloride Level 98 mmol/L (98-107) Carbon Dioxide Level 27 mmol/L (21-32) Anion Gap 7 (6-14) Blood Urea Nitrogen 8 mg/dL (8-26) Creatinine 0.8 mg/dL (0.7-1.3) Estimated GFR (Cockcroft-Gault) 124.3 BUN/Creatinine Ratio 10 (6-20) Glucose Level 69 mg/dL (70-99) Calcium Level 7.6 mg/dL (8.5-10.1) Total Bilirubin 0.8 mg/dL (0.2-1.0) Aspartate Amino Transf (AST/SGOT) 22 U/L (15-37) Alanine Aminotransferase (ALT/SGPT) 13 U/L (16-63) Alkaline Phosphatase 305 U/L (46-116) Total Protein 6.6 g/dL (6.4-8.2) Albumin 1.4 g/dL (3.4-5.0) Albumin/Globulin Ratio 0.3 (1.0-1.7) Test 10/28/19 12:10 Glucose (Fingerstick) 112 mg/dL (70-99) Laboratory Tests Test 10/27/19 16:55 10/27/19 20:46 10/28/19 04:20 10/28/19 07:43 Glucose (Fingerstick) 109 mg/dL (70-99) 98 mg/dL (70-99) 79 mg/dL (70-99) White Blood Count 13.9 x10^3/uL (4.0-11.0) Red Blood Count 3.39 x10^6/uL (4.30-5.70) Hemoglobin 8.8 g/dL (13.0-17.5) Hematocrit 27.4 % (39.0-53.0) Mean Corpuscular Volume 81 fL (79-100) Mean Corpuscular Hemoglobin 26 pg (25-35) Mean Corpuscular Hemoglobin Concent 32 g/dL (31-37) Red Cell Distribution Width 21.4 % (11.5-14.5) Platelet Count 353 x10^3/uL (140-400) Neutrophils (%) (Auto) 84 % (31-73) Lymphocytes (%) (Auto) 8 % (24-48) Monocytes (%) (Auto) 8 % (0-9) Eosinophils (%) (Auto) 0 % (0-3) Basophils (%) (Auto) 0 % (0-3) Neutrophils # (Auto) 11.7 x10^3/uL (1.8-7.7) Lymphocytes # (Auto) 1.1 x10^3/uL (1.0-4.8) Monocytes # (Auto) 1.1 x10^3/uL (0.0-1.1) Eosinophils # (Auto) 0.0 x10^3/uL (0.0-0.7) Basophils # (Auto) 0.0 x10^3/uL (0.0-0.2) Sodium Level 132 mmol/L (136-145) Potassium Level 4.4 mmol/L (3.5-5.1) Chloride Level 98 mmol/L (98-107) Carbon Dioxide Level 27 mmol/L (21-32) Anion Gap 7 (6-14) Blood Urea Nitrogen 8 mg/dL (8-26) Creatinine 0.8 mg/dL (0.7-1.3) Estimated GFR (Cockcroft-Gault) 124.3 BUN/Creatinine Ratio 10 (6-20) Glucose Level 69 mg/dL (70-99) Calcium Level 7.6 mg/dL (8.5-10.1) Total Bilirubin 0.8 mg/dL (0.2-1.0) Aspartate Amino Transf (AST/SGOT) 22 U/L (15-37) Alanine Aminotransferase (ALT/SGPT) 13 U/L (16-63) Alkaline Phosphatase 305 U/L (46-116) Total Protein 6.6 g/dL (6.4-8.2) Albumin 1.4 g/dL (3.4-5.0) Albumin/Globulin Ratio 0.3 (1.0-1.7) Test 10/28/19 12:10 Glucose (Fingerstick) 112 mg/dL (70-99) Microbiology 10/21/19 Blood Culture - Final, Complete NO GROWTH AFTER 5 DAYS Medications Current Medications Sodium Chloride 1,000 ml @ 1,000 mls/hr 1X ONCE IV Last administered on 10/21/19at 18:18; Start 10/21/19 at 18:00; Stop 10/21/19 at 18:59; Status DC Levofloxacin/ Dextrose 150 ml @ 100 mls/hr 1X ONCE IV Last administered on 10/21/19at 19:58; Start 10/21/19 at 19:45; Stop 10/21/19 at 21:14; Status DC Ondansetron HCl (Zofran) 4 mg PRN Q8HRS PRN IV NAUSEA/VOMITING; Start 10/21/19 at 20:30; Stop 10/22/19 at 07:58; Status DC Morphine Sulfate (Morphine Sulfate) 2 mg PRN Q2HR PRN IV PAIN; Start 10/21/19 at 20:30; Stop 10/22/19 at 07:58; Status DC Oxycodone HCl (Roxicodone) 15 mg PRN Q6HRS PRN PO PAIN Last administered on 10/22/19at 05:46; Start 10/21/19 at 21:00; Stop 10/22/19 at 11:30; Status DC Sodium Chloride 1,000 ml @ 1,000 mls/hr 1X ONCE IV Last administered on 10/21/19at 22:18; Start 10/21/19 at 22:30; Stop 10/21/19 at 23:29; Status DC Alprazolam (Xanax) 0.5 mg 1X ONCE PO Last administered on 10/21/19at 23:22; Start 10/21/19 at 23:30; Stop 10/21/19 at 23:31; Status DC Trazodone HCl (Desyrel) 50 mg 1X ONCE PO Last administered on 10/21/19 23:22; Start 10/21/19 at 23:30; Stop 10/21/19 at 23:31; Status DC Morphine Sulfate (Morphine Sulfate) 2 mg PRN Q4HRS PRN IV MODERATE PAIN Last administered on 10/24/19 00:28; Start 10/22/19 at 08:00; Stop 10/24/19 at 02:44; Status DC Ondansetron HCl (Zofran) 4 mg PRN Q4HRS PRN IV NAUSEA/VOMITING Last admini stered on 10/28/19 01:52; Start 10/22/19 at 08:00 Acetaminophen (Tylenol) 500 mg PRN Q6HRS PRN PO MILD PAIN / TEMP > 100.3'F Last administered on 10/22/19 09:22; Start 10/22/19 at 08:00 Buspirone HCl (Buspar) 10 mg BIDACBL PO Last administered on 10/22/19 11:17; Start 10/22/19 at 11:30; Stop 10/24/19 at 11:40; Status DC Ferrous Sulfate (Feosol) 325 mg BIDWMEALS PO Last administered on 10/28/19 09:49; Start 10/22/19 at 09:00 Gabapentin (Neurontin) 100 mg TID PO Last administered on 10/22/19 21:07; Start 10/22/19 at 09:00; Stop 10/23/19 at 11:16; Status DC Pantoprazole Sodium (Protonix) 40 mg DAILYAC PO Last administered on 10/28/19 07:30; Start 10/22/19 at 08:15 Trazodone HCl (Desyrel) 50 mg QHS PO Last administered on 10/27/19at 20:50; Start 10/22/19 at 21:00 Insulin Glargine (Lantus Syringe) 5 unit QHS SQ Last administered on 10/22/19 21:13; Start 10/22/19 at 21:00 Non-Formulary Medication (Melatonin ) 2 tab QHS PO ; Start 10/22/19 at 21:00; Status UNV Insulin Human Lispro (HumaLOG) 0-7 UNITS TIDACHC SQ Last administered on 7/12/20at 12:26; Start 10/22/19 at 11:30 Dextrose (Dextrose 50%-Water Syringe) 12.5 gm PRN Q15MIN PRN IV SEE COMMENTS; Start 10/22/19 at 08:00 Sodium Chloride 1,000 ml @ 1,000 mls/hr 1X ONCE IV Last administered on 10/22/19at 11:17; Start 10/22/19 at 10:00; Stop 10/22/19 at 10:59; Status DC Lorazepam (Ativan Inj) 1 mg PRN Q5MIN PRN IVP ANXIETY / AGITATION Last a dministered on 10/25/19at 18:32; Start 10/22/19 at 11:00; Stop 10/25/19 at 18:34; Status DC Psyllium Hydrophilic Mucilloid (Metamucil Fiber Packet) 1 pkt QHS PO Last administered on 10/27/19at 20:50; Start 10/22/19 at 21:00 Iohexol (Omnipaque 240 Mg/ml) 30 ml 1X ONCE PO Last administered on 10/22/19at 11:00; Start 10/22/19 at 11:00; Stop 10/22/19 at 11:01; Status DC Iohexol (Omnipaque 300 Mg/ml) 75 ml 1X ONCE IV Last administered on 10/22/19at 11:00; Start 10/22/19 at 11:00; Stop 10/22/19 at 11:01; Status DC Info (CONTRAST GIVEN -- Rx MONITORING) 1 each PRN DAILY PRN MC SEE COMMENTS; Start 10/22/19 at 11:15; Stop 10/24/19 at 11:14; Status DC Enoxaparin Sodium (Lovenox 40mg Syringe) 40 mg Q24H SQ ; Start 10/22/19 at 12:00; Stop 10/22/19 at 15:51; Status DC Oxycodone HCl (Roxicodone) 5 mg PRN Q6HRS PRN PO MODERATE PAIN 4-6 (USE 1ST) Last administered on 10/28/19at 09:52; Start 10/22/19 at 11:30 Piperacillin Sod/ Tazobactam Sod 3.375 gm/Sodium Chloride 50 ml @ 100 mls/hr Q6HRS IV Last administered on 10/24/19at 12:08; Start 10/22/19 at 16:00; Stop 10/24/19 at 16:43; Status DC Piperacillin Sod/ Tazobactam Sod (Zosyn Per Pharmacy) 1 each PRN DAILY PRN MC SEE COMMENTS; Start 10/22/19 at 16:00; Stop 10/24/19 at 17:17; Status DC Vancomycin HCl (Vancomycin Oral Solution) 125 mg [id number] JT Last administered on 10/28/19at 13:15; Start 10/23/19 at 17:00 Sodium Chloride 1,000 ml @ 100 mls/hr 1X ONCE IV Last administered on 10/24/19at 03:10; Start 10/24/19 at 03:00; Stop 10/24/19 at 12:59; Status DC Morphine Sulfate (Morphine Sulfate) 4 mg PRN Q3HRS PRN IV PAIN Last administered on 10/28/19at 09:58; Start 10/24/19 at 03:00 Lidocaine (Lidoderm) 1 patch DAILY TD Last administered on 10/25/19at 09:04; Start 10/24/19 at 12:00; Stop 10/25/19 at 16:18; Status DC Diclofenac Sodium (Voltaren) 1 devorah BID TP Last administered on 10/28/19 09:00; Start 10/24/19 at 12:00 Miscellaneous (Lidoderm Patch Removal) 1 ea QHS MC Last administered on 10/25/19at 21:00; Start 10/24/19 at 21:00; Stop 10/25/19 at 22:00; Status DC Buspirone HCl (Buspar) 10 mg PRN QID PRN PO anxiety; Start 10/24/19 at 11:45 Enoxaparin Sodium (Lovenox 40mg Syringe) 40 mg Q24H SQ Last administered on 10/26/19at 17:54; Start 10/24/19 at 17:00 Furosemide (Lasix) 20 mg DAILY PO Last administered on 10/28/19at 09:49; Start 10/25/19 at 13:00 Metoprolol Tartrate (Lopressor) 25 mg BID PO Last administered on 10/28/19at 09:50; Start 10/25/19 at 13:00 Phenyleph/Shark Oil/Min Oil/Petrol (Preparation H) 1 devorah PRN QID PRN RC RECTAL PAIN Last administered on 10/27/19 09:54; Start 10/25/19 at 12:45 Lidocaine (Lidoderm) 1 patch QHS TD Last administered on 10/27/19at 20:51; Start 10/26/19 at 21:00 Lactobacillus Rhamnosus (Culturelle) 1 cap BID PO Last administered on 10/28/19 09:49; Start 10/25/19 at 21:00 Miscellaneous (Lidoderm Patch Removal) 1 ea DAILY MC Last administered on 10/28/19 09:00; Start 10/27/19 at 09:00 Mirtazapine (Remeron) 15 mg QHS PO Last administered on 10/27/19 20:50; Start 10/27/19 at 21:00 Active Scripts Active Reported Buspirone Hcl 10 Mg Tablet 1 Tab PO BIDACBL Alprazolam 0.5 Mg Tablet 1 Tab PO HS Acetaminophen 500 Mg Tablet 1 Tab PO PRN Q6HRS PRN 15 Days Levemir (Insulin Detemir) 100 Unit/1 Ml Vial 5 Unit SQ DAILY PRN 5 units daily in morning if bs greater than 200. Oxycodone Hcl Immed.release (Oxycodone Hcl) 15 Mg Tablet 15 Mg PO PRN Q6HRS PRN Ferrous Sulfate 325 Mg Tablet 65 Mg PO BID Metformin Hcl 500 Mg Tablet 500 Mg PO BIDWMEALS Amlodipine Besylate 10 Mg Tablet 10 Mg PO DAILY Pantoprazole Sodium (Pantoprazole Sodium) 40 Mg Tablet.dr 40 Mg PO DAILYAC Trazodone Hcl 50 Mg Tablet 1 Tab PO QHS Furosemide 20 Mg Tablet 1 Tab PO DAILY Gabapentin (Gabapentin) 100 Mg Capsule 100 Mg PO TID Metoprolol Tartrate 100 Mg Tablet 1 Tab PO BID Melatonin 3 Mg Tablet 2 Tab PO QHS Vitals/I & O Vital Sign - Last 24 Hours 10/27/19 10/27/19 10/27/19 10/27/19 15:00 16:05 16:35 17:19 Temp 98.9 98.9 Pulse 100 Resp 18 B/P (MAP) 88/56 (67) Pulse Ox 97 O2 Delivery Room Air Room Air Room Air Room Air 10/27/19 10/27/19 10/27/19 10/27/19 19:56 20:00 20:49 21:25 Temp 98.1 98.1 Pulse 99 102 Resp 18 B/P (MAP) 95/62 (73) 95/62 Pulse Ox 98 98 O2 Delivery Room Air Room Air Room Air 10/27/19 10/28/19 10/28/19 10/28/19 22:07 01:52 03:46 07:00 Temp 98.0 98.4 97.6 98.0 98.4 97.6 Pulse 108 114 131 Resp 18 16 20 B/P (MAP) 101/67 (78) 102/64 (77) 116/78 (91) Pulse Ox 99 99 99 97 O2 Delivery Room Air Room Air Room Air Room Air 10/28/19 10/28/19 10/28/19 10/28/19 08:00 09:50 09:52 09:58 Pulse 116 B/P (MAP) 116/78 O2 Delivery Room Air Room Air Room Air 10/28/19 10/28/19 10/28/19 10:28 10:52 11:00 Temp 98.1 98.1 Pulse 113 Resp 18 B/P (MAP) 97/70 (79) Pulse Ox 96 O2 Delivery Room Air Room Air Room Air Intake and Output 10/27/19 10/27/19 10/28/19 15:00 23:00 07:00 Intake Total 1031 ml 120 ml Output Total 250 ml 150 ml 250 ml Balance 781 ml -30 ml -250 ml Nutrition Consultation Dietary Evaluation: Recommendations by RD: Dietary education by RD, Increase Calorie Intake, Protein supplementation, Add supplement feedings Comments: Continue w/ADA diet w/supplements as ordered, however ok per RD to liberalize diet as needed to honor food preferences and promote PO intake Continue w/nocturnal TFs per order, increasing rate 10 ml q8 hrs to goal of 60 ml/hr pending pt tolerance REC MVI and Vit C for wound healing Expected Outcomes/Goals: nutritition intake to meet >75% est needs - goal ongoing Interpretation of weight loss: >7.5% in 3 months Malnutrition Findings: Food and Nutrition Intake (Sev: <50% est energy req 5days Weight Status: Appropriate Justicifation of Admission Dx: Justifications for Admission: Justification of Admission Dx: Yes Comminuty Aquired Pneumonia: Med-High Risk Pt Sepsis: Infection AZUL MENDEZ MD Oct 28, 2019 13:42
[2019-10-28 15:00] VITALS: BP 94/65
--- NOTE | 2019-10-28 15:11 | NUR ---
Wound Care Pt called wound clinic this morning, requesting that WCRNs visit today. Reassessed pt's RUQ drain site, area reddened and macerated, pt wanting to try Urostomy bag instead of dressings today. Drain openings measured and urostomy pouch applied after skin care and skin prep, pt educated on bag emptying. Will reassess pt tomorrow.
[2019-10-28] MEDS: ENOXAPARIN 40 MG/0.4 ML SYRINGE. SQ SCH (16:57)
[2019-10-28 20:25] VITALS: BP 98/67
--- NOTE | 2019-10-28 21:00 | NUR ---
This RN attempted to flush the patient's J-tube in order to set up mold technician his tube feeding. Upon first inspection the J-tube does look unclogged, however, the J-tube would not flush at all. This RN was unable to pull back any residual as well, however while attempting to get residual from the J-tube this RN noticed some tube feeding residue in the tube closest to the insertion site. This RN explained to the patient that his J-tube is probably still clogged inside where it is unable to be seen. The patient stated that he did not want this RN to attempt to unclog the J-tube tonight. Patient stated that "the doctors will just have to look at it and deal with it tomorrow". This RN was able to inform Dr. Leon of the patient's J-tube still being clogged, orders to call IR in the morning were received. This RN will continue to monitor the patient at this time.
[2019-10-28] MEDS: traZODone 50 MG TABLET. PO SCH (21:12)
[2019-10-28] MEDS: MIRTAZAPINE 15 MG TABLET PO SCH (21:12)
[2019-10-28] MEDS: LIDOCAINE (700MG/PATCH) PATCH. TD SCH (21:14)
[2019-10-28] MEDS: PSYLLIUM HUSK (SUGAR FREE) 1 PKT PACKET PO SCH (21:15)
[2019-10-28] MEDS: INSULIN GLARGINE SYRINGE. SQ SCH (21:54)
[2019-10-28 23:31] VITALS: BP 107/69
[2019-10-29] MEDS: MORPHINE SULFATE 4 MG/ML VIAL. IV PRN ×5 (00:35→20:00)
[2019-10-29] MEDS: IV NORMAL SALINE 1000ML BAG 1,000 ML IV SCH ×2 (02:09→19:43)
[2019-10-29 02:34] VITALS: BP 94/63
[2019-10-29 02:54] LABS: GFR 96.1; POTASSIUM 4.3 mmol/L (3.5-5.1)
[2019-10-29 03:23] LABS: BASO % 0 % (0-3); EOS % 0 % (0-3); HEMATOCRIT 23.5 % (39.0-53.0); HEMOGLOBIN 7.8 g/dL (13.0-17.5); LYMPH # 1.5 x10^3/uL (1.0-4.8); LYMPH % 13 % (24-48); MEAN CORPUSCULAR HEMOGLOBIN 27 pg (25-35); MEAN CORPUSCULAR HGB CONC 33 g/dL (31-37); MEAN CORPUSCULAR VOLUME 80 fL (79-100); MONO # 1.1 x10^3/uL (0.0-1.1); MONO % 9 % (0-9); NEUT # 9.1 x10^3/uL (1.8-7.7); NEUT % 78 % (31-73); PLATELET COUNT 321 x10^3/uL (140-400); RED BLOOD COUNT 2.92 x10^6/uL (4.30-5.70); RED CELL DISTRIBUTION WIDTH 21.4 % (11.5-14.5); WHITE BLOOD COUNT 11.6 x10^3/uL (4.0-11.0)
[2019-10-29] MEDS: ONDANSETRON PF 4 MG/2 ML VIAL. IV PRN ×3 (03:52→20:00)
[2019-10-29 07:00] VITALS: BP 91/56
[2019-10-29] MEDS: INSULIN LISPRO 300 UNITS/3 ML VIAL. SQ SCH ×4 (07:30→21:00)
[2019-10-29] MEDS: PANTOPRAZOLE 40 MG TABLET.DR. PO SCH (07:51)
[2019-10-29] MEDS: LACTOBACILLUS RHAMNOSUS GG 1 CAPSULE. PO SCH ×2 (08:50→21:09)
[2019-10-29] MEDS: METOPROLOL TART IMMED RELEASE 25 MG TABLET. PO SCH ×2 (08:51→21:00)
[2019-10-29] MEDS: FUROSEMIDE 20 MG TABLET PO SCH (08:51)
[2019-10-29] MEDS: FERROUS SULFATE 325 MG TABLET. PO SCH ×2 (08:51→17:54)
[2019-10-29] MEDS: oxyCODONE IR 5 MG TABLET PO PRN (08:54)
[2019-10-29] MEDS: VANCOMYCIN 125 MG/2.5 ML ORAL SOLUTION. JT SCH ×4 (08:57→21:06)
[2019-10-29] MEDS: DICLOFENAC SODIUM 1% TOPICAL GEL 100GM TUBE. TP SCH ×2 (08:57→21:19)
[2019-10-29] MEDS: PATCH REMOVAL. MC SCH (08:57)
--- NOTE | 2019-10-29 09:52 | PDOC ---
SURGICAL PROGRESS NOTE Subjective eating better j tube clogged Vital Signs Vital Signs Date Time Temp Pulse Resp B/P (MAP) Pulse Ox O2 Delivery O2 Flow Rate FiO2 10/29/19 08:56 Room Air 10/29/19 08:51 110 10/29/19 07:00 97.9 18 91/56 (68) 97 97.9 I&O Intake and Output 10/29/19 07:00 Intake Total 440 ml Output Total 425 ml Balance 15 ml Intake Oral 440 ml Output Urine Total 425 ml # Bowel Movements 2 General: Alert, Oriented X3, Cooperative Abdomen: Soft, Other (drainage bag to wound sites ) Labs Laboratory Tests Test 10/27/19 11:56 10/27/19 16:55 10/27/19 20:46 10/28/19 04:20 Glucose (Fingerstick) 140 mg/dL (70-99) 109 mg/dL (70-99) 98 mg/dL (70-99) White Blood Count 13.9 x10^3/uL (4.0-11.0) Red Blood Count 3.39 x10^6/uL (4.30-5.70) Hemoglobin 8.8 g/dL (13.0-17.5) Hematocrit 27.4 % (39.0-53.0) Mean Corpuscular Volume 81 fL (79-100) Mean Corpuscular Hemoglobin 26 pg (25-35) Mean Corpuscular Hemoglobin Concent 32 g/dL (31-37) Red Cell Distribution Width 21.4 % (11.5-14.5) Platelet Count 353 x10^3/uL (140-400) Neutrophils (%) (Auto) 84 % (31-73) Lymphocytes (%) (Auto) 8 % (24-48) Monocytes (%) (Auto) 8 % (0-9) Eosinophils (%) (Auto) 0 % (0-3) Basophils (%) (Auto) 0 % (0-3) Neutrophils # (Auto) 11.7 x10^3/uL (1.8-7.7) Lymphocytes # (Auto) 1.1 x10^3/uL (1.0-4.8) Monocytes # (Auto) 1.1 x10^3/uL (0.0-1.1) Eosinophils # (Auto) 0.0 x10^3/uL (0.0-0.7) Basophils # (Auto) 0.0 x10^3/uL (0.0-0.2) Sodium Level 132 mmol/L (136-145) Potassium Level 4.4 mmol/L (3.5-5.1) Chloride Level 98 mmol/L (98-107) Carbon Dioxide Level 27 mmol/L (21-32) Anion Gap 7 (6-14) Blood Urea Nitrogen 8 mg/dL (8-26) Creatinine 0.8 mg/dL (0.7-1.3) Estimated GFR (Cockcroft-Gault) 124.3 BUN/Creatinine Ratio 10 (6-20) Glucose Level 69 mg/dL (70-99) Calcium Level 7.6 mg/dL (8.5-10.1) Total Bilirubin 0.8 mg/dL (0.2-1.0) Aspartate Amino Transf (AST/SGOT) 22 U/L (15-37) Alanine Aminotransferase (ALT/SGPT) 13 U/L (16-63) Alkaline Phosphatase 305 U/L (46-116) Total Protein 6.6 g/dL (6.4-8.2) Albumin 1.4 g/dL (3.4-5.0) Albumin/Globulin Ratio 0.3 (1.0-1.7) Test 10/28/19 07:43 10/28/19 12:10 10/28/19 17:01 10/28/19 20:25 Glucose (Fingerstick) 79 mg/dL (70-99) 112 mg/dL (70-99) 124 mg/dL (70-99) 157 mg/dL (70-99) Test 10/29/19 00:30 10/29/19 05:55 10/29/19 07:26 White Blood Count 11.6 x10^3/uL (4.0-11.0) Red Blood Count 2.92 x10^6/uL (4.30-5.70) Hemoglobin 7.8 g/dL (13.0-17.5) Hematocrit 23.5 % (39.0-53.0) Mean Corpuscular Volume 80 fL (79-100) Mean Corpuscular Hemoglobin 27 pg (25-35) Mean Corpuscular Hemoglobin Concent 33 g/dL (31-37) Red Cell Distribution Width 21.4 % (11.5-14.5) Platelet Count 321 x10^3/uL (140-400) Neutrophils (%) (Auto) 78 % (31-73) Lymphocytes (%) (Auto) 13 % (24-48) Monocytes (%) (Auto) 9 % (0-9) Eosinophils (%) (Auto) 0 % (0-3) Basophils (%) (Auto) 0 % (0-3) Neutrophils # (Auto) 9.1 x10^3/uL (1.8-7.7) Lymphocytes # (Auto) 1.5 x10^3/uL (1.0-4.8) Monocytes # (Auto) 1.1 x10^3/uL (0.0-1.1) Eosinophils # (Auto) 0.0 x10^3/uL (0.0-0.7) Basophils # (Auto) 0.0 x10^3/uL (0.0-0.2) Sodium Level 131 mmol/L (136-145) Potassium Level 4.3 mmol/L (3.5-5.1) Chloride Level 99 mmol/L (98-107) Carbon Dioxide Level 26 mmol/L (21-32) Anion Gap 6 (6-14) Blood Urea Nitrogen 9 mg/dL (8-26) Creatinine 1.0 mg/dL (0.7-1.3) Estimated GFR (Cockcroft-Gault) 96.1 Glucose Level 97 mg/dL (70-99) Lactic Acid Level 2.4 mmol/L (0.4-2.0) 1.8 mmol/L (0.4-2.0) Calcium Level 7.0 mg/dL (8.5-10.1) Glucose (Fingerstick) 114 mg/dL (70-99) Laboratory Tests Test 10/28/19 12:10 10/28/19 17:01 10/28/19 20:25 10/29/19 00:30 Glucose (Fingerstick) 112 mg/dL (70-99) 124 mg/dL (70-99) 157 mg/dL (70-99) White Blood Count 11.6 x10^3/uL (4.0-11.0) Red Blood Count 2.92 x10^6/uL (4.30-5.70) Hemoglobin 7.8 g/dL (13.0-17.5) Hematocrit 23.5 % (39.0-53.0) Mean Corpuscular Volume 80 fL (79-100) Mean Corpuscular Hemoglobin 27 pg (25-35) Mean Corpuscular Hemoglobin Concent 33 g/dL (31-37) Red Cell Distribution Width 21.4 % (11.5-14.5) Platelet Count 321 x10^3/uL (140-400) Neutrophils (%) (Auto) 78 % (31-73) Lymphocytes (%) (Auto) 13 % (24-48) Monocytes (%) (Auto) 9 % (0-9) Eosinophils (%) (Auto) 0 % (0-3) Basophils (%) (Auto) 0 % (0-3) Neutrophils # (Auto) 9.1 x10^3/uL (1.8-7.7) Lymphocytes # (Auto) 1.5 x10^3/uL (1.0-4.8) Monocytes # (Auto) 1.1 x10^3/uL (0.0-1.1) Eosinophils # (Auto) 0.0 x10^3/uL (0.0-0.7) Basophils # (Auto) 0.0 x10^3/uL (0.0-0.2) Sodium Level 131 mmol/L (136-145) Potassium Level 4.3 mmol/L (3.5-5.1) Chloride Level 99 mmol/L (98-107) Carbon Dioxide Level 26 mmol/L (21-32) Anion Gap 6 (6-14) Blood Urea Nitrogen 9 mg/dL (8-26) Creatinine 1.0 mg/dL (0.7-1.3) Estimated GFR (Cockcroft-Gault) 96.1 Glucose Level 97 mg/dL (70-99) Lactic Acid Level 2.4 mmol/L (0.4-2.0) Calcium Level 7.0 mg/dL (8.5-10.1) Test 10/29/19 05:55 10/29/19 07:26 Lactic Acid Level 1.8 mmol/L (0.4-2.0) Glucose (Fingerstick) 114 mg/dL (70-99) Problem List Problems Medical Problems: (1) Pneumonia Status: Acute (2) Sepsis Status: Acute Assessment/Plan will have IR attempt to unclog/exchange j tube Justicifation of Admission Dx: Justifications for Admission: Justification of Admission Dx: Yes Comminuty Aquired Pneumonia: Med-High Risk Pt Sepsis: Infection MAXIMILIANO GREENBERG [employer] Oct 29, 2019 09:52
--- NOTE | 2019-10-29 10:21 | NUR ---
SS following up with discharge planning. SS reviewed pt chart and discussed with pt RN. Pt currently on room air. Pt J-tube clogged. Per surgery, IR to attempt to unclog/exchange j tube. Pt still having significant drainage from JOSE site. Wound care following. Services for tube feeds ready for delivery from [facility]. Referral was phoned and faxed to [facility]. SS will continue to follow for discharge planning.
[2019-10-29 11:00] VITALS: BP 91/62
--- NOTE | 2019-10-29 11:07 | PDOC ---
Subjective: Subjective: Tube clogged, discomfort in abdomen. Objective: Objective: D/w nurse earlier - J tube clogged, refused nurse help. Reviewed chart - surgery has ask IR to see. Vital Signs: Vital Signs Date Time Temp Pulse Resp B/P (MAP) Pulse Ox O2 Delivery O2 Flow Rate FiO2 10/29/19 09:54 Room Air 10/29/19 08:51 110 10/29/19 07:00 97.9 18 91/56 (68) 97 97.9 Labs: Laboratory Tests Test 10/28/19 12:10 10/28/19 17:01 10/28/19 20:25 10/29/19 00:30 Glucose (Fingerstick) 112 mg/dL 124 mg/dL 157 mg/dL White Blood Count 11.6 x10^3/uL Red Blood Count 2.92 x10^6/uL Hemoglobin 7.8 g/dL Hematocrit 23.5 % Mean Corpuscular Volume 80 fL Mean Corpuscular Hemoglobin 27 pg Mean Corpuscular Hemoglobin Concent 33 g/dL Red Cell Distribution Width 21.4 % Platelet Count 321 x10^3/uL Neutrophils (%) (Auto) 78 % Lymphocytes (%) (Auto) 13 % Monocytes (%) (Auto) 9 % Eosinophils (%) (Auto) 0 % Basophils (%) (Auto) 0 % Neutrophils # (Auto) 9.1 x10^3/uL Lymphocytes # (Auto) 1.5 x10^3/uL Monocytes # (Auto) 1.1 x10^3/uL Eosinophils # (Auto) 0.0 x10^3/uL Basophils # (Auto) 0.0 x10^3/uL Sodium Level 131 mmol/L Potassium Level 4.3 mmol/L Chloride Level 99 mmol/L Carbon Dioxide Level 26 mmol/L Anion Gap 6 Blood Urea Nitrogen 9 mg/dL Creatinine 1.0 mg/dL Estimated GFR (Cockcroft-Gault) 96.1 Glucose Level 97 mg/dL Lactic Acid Level 2.4 mmol/L Calcium Level 7.0 mg/dL Test 10/29/19 05:55 10/29/19 07:26 Lactic Acid Level 1.8 mmol/L Glucose (Fingerstick) 114 mg/dL PE: GEN: chronically ill LUNGS: CTAB HEART: tachycardic ABD: distended, tender around tube NEURO/PSYCH: A & O 3 A/P: Recent pancreatic necrosectomy Clogged J tube C Diff diarrhea - on vanco -- Plans as above. Justicifation of Admission Dx: Justifications for Admission: Justification of Admission Dx: Yes Comminuty Aquired Pneumonia: Med-High Risk Pt Sepsis: Infection PAXTON ALEXANDER Oct 29, 2019 11:07
[2019-10-29] MEDS: ALPRAZolam 0.25 MG TABLET PO PRN (13:47)
--- NOTE | 2019-10-29 13:49 | NUR ---
Wound Care Wound care follow upon bag placement over drain sites. Pt denies any leakage at this time, will follow up again tomorrow
[2019-10-29 15:00] VITALS: BP 92/57
[2019-10-29] MEDS ORDERED: IOHEXOL 240 MG/ML 50ML VIAL. ONE ×2 (15:25→16:09)
[2019-10-29] MEDS ORDERED: IOHEXOL 240 MG/ML 50ML VIAL. IJ ONE (15:45)
--- NOTE | 2019-10-29 17:26 | PDOC ---
PROGRESS NOTES Chief Complaint Chief Complaint A/P: RUQ abdominal pain - with recent h/o gallstone pancreatitis,t GI and general surgery following, well known to both services. CT abdomen/pelvis with significant ascites Leukocytosis - improved C diff Diarrhea: on PO vanc H/o recent Severe pancreatitis s/p ex-lap with pancreatic necrosectomy, cholecystostomy tube placement, gastrostomy tube placement, tracheostomy placement, 5 drains, 1.5L ascites drained - likely gallstone pancreatitis Status post tracheostomy - reversed, recovered Hyponatremia - will restart fluids Severe protein calorie malnutrition - would restart G-tube feeds if ok with general surgery, quality project manager following. Physician deconditioning - PT OT Hypocalcemia Hepatitis B LLL small effusion - still present. Hyperglycemia - cont insulin FEN - General diet PPX - lovenox FULL CODE History of Present Illness History of Present Illness Mr Mata is a 49yo M w/ PMHx pancreatitis s/p ex-lap with pancreatic necrosectomy, gastrostomy tube placement, s/p tracheostomy, hepatitis B who returns to the hospital with his from home c/o diarrhea and RUQ pain that began on 10/21/2019. He was hospitalized for what was ultimately diagnosed as gallstone pancreatitis 06/11/2019-07/22/2019 [underwent hemodialysis for renal failure, stopped 07/04/2019, on 06/22/2019 is s/p ex-lap with pancreatic necrosectomy, cholecystostomy tube placement, gastrostomy tube placement, 5 drains, 1.5L ascites drained, and s/p tracheostomy at that time] and discharged to [facility] for further recovery. He reports he has been recovering at home with his . Has been off antibiotics since 07/31/2019. He has been short of breath but that is no different than it has been for the past 2 months. No cough no recent sick contacts. He is lost 60 pounds since prior to his May hospitalization. Labs: WBC 19.4, Hb 8.6, platelets 456, NA 131, K4.6, BUN 17, CR 0.9, glucose 130, lactic acid 2.2, albumin 1.8, alkaline phosphatase 283, calcium 7.9 lipase normal. CXR interpreted as atelectasis versus left lower lobe infiltrate, was dosed with Levaquin in ED. BP 98/54. Admitted for further care. Plan: j tube still clogged. IR to see. Lidoderm and diclofenac for back pain Cont vancomycin Rectal hydrocortisone follow labs Vitals Vitals Vital Signs Date Time Temp Pulse Resp B/P (MAP) Pulse Ox O2 Delivery O2 Flow Rate FiO2 10/29/19 15:56 Room Air 10/29/19 15:26 99 10/29/19 15:00 98.0 108 18 92/57 (69) 98.0 Physical Exam General: Alert, Oriented X3, Cooperative Heart: Regular rate, Normal S1, Normal S2 Lungs: Clear Abdomen: Soft, Other (drainage bag to wound sites ) Extremities: No clubbing, No cyanosis, No edema, Normal pulses, No tenderness/swelling Skin: No rashes, No breakdown, No significant lesion Labs LABS Laboratory Tests Test 10/28/19 20:25 10/29/19 00:30 10/29/19 05:55 10/29/19 07:26 Glucose (Fingerstick) 157 mg/dL (70-99) 114 mg/dL (70-99) White Blood Count 11.6 x10^3/uL (4.0-11.0) Red Blood Count 2.92 x10^6/uL (4.30-5.70) Hemoglobin 7.8 g/dL (13.0-17.5) Hematocrit 23.5 % (39.0-53.0) Mean Corpuscular Volume 80 fL (79-100) Mean Corpuscular Hemoglobin 27 pg (25-35) Mean Corpuscular Hemoglobin Concent 33 g/dL (31-37) Red Cell Distribution Width 21.4 % (11.5-14.5) Platelet Count 321 x10^3/uL (140-400) Neutrophils (%) (Auto) 78 % (31-73) Lymphocytes (%) (Auto) 13 % (24-48) Monocytes (%) (Auto) 9 % (0-9) Eosinophils (%) (Auto) 0 % (0-3) Basophils (%) (Auto) 0 % (0-3) Neutrophils # (Auto) 9.1 x10^3/uL (1.8-7.7) Lymphocytes # (Auto) 1.5 x10^3/uL (1.0-4.8) Monocytes # (Auto) 1.1 x10^3/uL (0.0-1.1) Eosinophils # (Auto) 0.0 x10^3/uL (0.0-0.7) Basophils # (Auto) 0.0 x10^3/uL (0.0-0.2) Sodium Level 131 mmol/L (136-145) Potassium Level 4.3 mmol/L (3.5-5.1) Chloride Level 99 mmol/L (98-107) Carbon Dioxide Level 26 mmol/L (21-32) Anion Gap 6 (6-14) Blood Urea Nitrogen 9 mg/dL (8-26) Creatinine 1.0 mg/dL (0.7-1.3) Estimated GFR (Cockcroft-Gault) 96.1 Glucose Level 97 mg/dL (70-99) Lactic Acid Level 2.4 mmol/L (0.4-2.0) 1.8 mmol/L (0.4-2.0) Calcium Level 7.0 mg/dL (8.5-10.1) Test 10/29/19 12:06 10/29/19 17:20 Glucose (Fingerstick) 113 mg/dL (70-99) 131 mg/dL (70-99) Assessment and Plan Assessmemt and Plan Problems Medical Problems: (1) Pneumonia Status: Acute (2) Sepsis Status: Acute Comment Review of Relevant I have reviewed the following items alexandra (where applicable) has been applied. Labs Laboratory Tests Test 10/27/19 20:46 10/28/19 04:20 10/28/19 07:43 10/28/19 12:10 Glucose (Fingerstick) 98 mg/dL (70-99) 79 mg/dL (70-99) 112 mg/dL (70-99) White Blood Count 13.9 x10^3/uL (4.0-11.0) Red Blood Count 3.39 x10^6/uL (4.30-5.70) Hemoglobin 8.8 g/dL (13.0-17.5) Hematocrit 27.4 % (39.0-53.0) Mean Corpuscular Volume 81 fL (79-100) Mean Corpuscular Hemoglobin 26 pg (25-35) Mean Corpuscular Hemoglobin Concent 32 g/dL (31-37) Red Cell Distribution Width 21.4 % (11.5-14.5) Platelet Count 353 x10^3/uL (140-400) Neutrophils (%) (Auto) 84 % (31-73) Lymphocytes (%) (Auto) 8 % (24-48) Monocytes (%) (Auto) 8 % (0-9) Eosinophils (%) (Auto) 0 % (0-3) Basophils (%) (Auto) 0 % (0-3) Neutrophils # (Auto) 11.7 x10^3/uL (1.8-7.7) Lymphocytes # (Auto) 1.1 x10^3/uL (1.0-4.8) Monocytes # (Auto) 1.1 x10^3/uL (0.0-1.1) Eosinophils # (Auto) 0.0 x10^3/uL (0.0-0.7) Basophils # (Auto) 0.0 x10^3/uL (0.0-0.2) Sodium Level 132 mmol/L (136-145) Potassium Level 4.4 mmol/L (3.5-5.1) Chloride Level 98 mmol/L (98-107) Carbon Dioxide Level 27 mmol/L (21-32) Anion Gap 7 (6-14) Blood Urea Nitrogen 8 mg/dL (8-26) Creatinine 0.8 mg/dL (0.7-1.3) Estimated GFR (Cockcroft-Gault) 124.3 BUN/Creatinine Ratio 10 (6-20) Glucose Level 69 mg/dL (70-99) Calcium Level 7.6 mg/dL (8.5-10.1) Total Bilirubin 0.8 mg/dL (0.2-1.0) Aspartate Amino Transf (AST/SGOT) 22 U/L (15-37) Alanine Aminotransferase (ALT/SGPT) 13 U/L (16-63) Alkaline Phosphatase 305 U/L (46-116) Total Protein 6.6 g/dL (6.4-8.2) Albumin 1.4 g/dL (3.4-5.0) Albumin/Globulin Ratio 0.3 (1.0-1.7) Test 10/28/19 17:01 10/28/19 20:25 10/29/19 00:30 10/29/19 05:55 Glucose (Fingerstick) 124 mg/dL (70-99) 157 mg/dL (70-99) White Blood Count 11.6 x10^3/uL (4.0-11.0) Red Blood Count 2.92 x10^6/uL (4.30-5.70) Hemoglobin 7.8 g/dL (13.0-17.5) Hematocrit 23.5 % (39.0-53.0) Mean Corpuscular Volume 80 fL (79-100) Mean Corpuscular Hemoglobin 27 pg (25-35) Mean Corpuscular Hemoglobin Concent 33 g/dL (31-37) Red Cell Distribution Width 21.4 % (11.5-14.5) Platelet Count 321 x10^3/uL (140-400) Neutrophils (%) (Auto) 78 % (31-73) Lymphocytes (%) (Auto) 13 % (24-48) Monocytes (%) (Auto) 9 % (0-9) Eosinophils (%) (Auto) 0 % (0-3) Basophils (%) (Auto) 0 % (0-3) Neutrophils # (Auto) 9.1 x10^3/uL (1.8-7.7) Lymphocytes # (Auto) 1.5 x10^3/uL (1.0-4.8) Monocytes # (Auto) 1.1 x10^3/uL (0.0-1.1) Eosinophils # (Auto) 0.0 x10^3/uL (0.0-0.7) Basophils # (Auto) 0.0 x10^3/uL (0.0-0.2) Sodium Level 131 mmol/L (136-145) Potassium Level 4.3 mmol/L (3.5-5.1) Chloride Level 99 mmol/L (98-107) Carbon Dioxide Level 26 mmol/L (21-32) Anion Gap 6 (6-14) Blood Urea Nitrogen 9 mg/dL (8-26) Creatinine 1.0 mg/dL (0.7-1.3) Estimated GFR (Cockcroft-Gault) 96.1 Glucose Level 97 mg/dL (70-99) Lactic Acid Level 2.4 mmol/L (0.4-2.0) 1.8 mmol/L (0.4-2.0) Calcium Level 7.0 mg/dL (8.5-10.1) Test 7/15/20 07:26 10/29/19 12:06 10/29/19 17:20 Glucose (Fingerstick) 114 mg/dL (70-99) 113 mg/dL (70-99) 131 mg/dL (70-99) Laboratory Tests Test 10/28/19 20:25 10/29/19 00:30 10/29/19 05:55 10/29/19 07:26 Glucose (Fingerstick) 157 mg/dL (70-99) 114 mg/dL (70-99) White Blood Count 11.6 x10^3/uL (4.0-11.0) Red Blood Count 2.92 x10^6/uL (4.30-5.70) Hemoglobin 7.8 g/dL (13.0-17.5) Hematocrit 23.5 % (39.0-53.0) Mean Corpuscular Volume 80 fL (79-100) Mean Corpuscular Hemoglobin 27 pg (25-35) Mean Corpuscular Hemoglobin Concent 33 g/dL (31-37) Red Cell Distribution Width 21.4 % (11.5-14.5) Platelet Count 321 x10^3/uL (140-400) Neutrophils (%) (Auto) 78 % (31-73) Lymphocytes (%) (Auto) 13 % (24-48) Monocytes (%) (Auto) 9 % (0-9) Eosinophils (%) (Auto) 0 % (0-3) Basophils (%) (Auto) 0 % (0-3) Neutrophils # (Auto) 9.1 x10^3/uL (1.8-7.7) Lymphocytes # (Auto) 1.5 x10^3/uL (1.0-4.8) Monocytes # (Auto) 1.1 x10^3/uL (0.0-1.1) Eosinophils # (Auto) 0.0 x10^3/uL (0.0-0.7) Basophils # (Auto) 0.0 x10^3/uL (0.0-0.2) Sodium Level 131 mmol/L (136-145) Potassium Level 4.3 mmol/L (3.5-5.1) Chloride Level 99 mmol/L (98-107) Carbon Dioxide Level 26 mmol/L (21-32) Anion Gap 6 (6-14) Blood Urea Nitrogen 9 mg/dL (8-26) Creatinine 1.0 mg/dL (0.7-1.3) Estimated GFR (Cockcroft-Gault) 96.1 Glucose Level 97 mg/dL (70-99) Lactic Acid Level 2.4 mmol/L (0.4-2.0) 1.8 mmol/L (0.4-2.0) Calcium Level 7.0 mg/dL (8.5-10.1) Test 10/29/19 12:06 10/29/19 17:20 Glucose (Fingerstick) 113 mg/dL (70-99) 131 mg/dL (70-99) Microbiology 10/21/19 Blood Culture - Final, Complete NO GROWTH AFTER 5 DAYS Medications Current Medications Sodium Chloride 1,000 ml @ 1,000 mls/hr 1X ONCE IV Last administered on 10/21/19at 18:18; Start 10/21/19 at 18:00; Stop 10/21/19 at 18:59; Status DC Levofloxacin/ Dextrose 150 ml @ 100 mls/hr 1X ONCE IV Last administered on 10/21/19at 19:58; Start 10/21/19 at 19:45; Stop 10/21/19 at 21:14; Status DC Ondansetron HCl (Zofran) 4 mg PRN Q8HRS PRN IV NAUSEA/VOMITING; Start 10/21/19 at 20:30; Stop 10/22/19 at 07:58; Status DC Morphine Sulfate (Morphine Sulfate) 2 mg PRN Q2HR PRN IV PAIN; Start 10/21/19 at 20:30; Stop 10/22/19 at 07:58; Status DC Oxycodone HCl (Roxicodone) 15 mg PRN Q6HRS PRN PO PAIN Last administered on 10/22/19at 05:46; Start 10/21/19 at 21:00; Stop 10/22/19 at 11:30; Status DC Sodium Chloride 1,000 ml @ 1,000 mls/hr 1X ONCE IV Last administered on 0at 22:18; Start 10/21/19 at 22:30; Stop 10/21/19 at 23:29; Status DC Alprazolam (Xanax) 0.5 mg 1X ONCE PO Last administered on 10/21/19 23:22; Start 10/21/19 at 23:30; Stop 10/21/19 at 23:31; Status DC Trazodone HCl (Desyrel) 50 mg 1X ONCE PO Last administered on 10/21/19 23:22; Start 10/21/19 at 23:30; Stop 10/21/19 at 23:31; Status DC Morphine Sulfate (Morphine Sulfate) 2 mg PRN Q4HRS PRN IV MODERATE PAIN Last administered on 10/24/19at 00:28; Start 10/22/19 at 08:00; Stop 10/24/19 at 02:44; Status DC Ondansetron HCl (Zofran) 4 mg PRN Q4HRS PRN IV NAUSEA/VOMITING Last administered on 10/29/19 15:30; Start 10/22/19 at 08:00 Acetaminophen (Tylenol) 500 mg PRN Q6HRS PRN PO MILD PAIN / TEMP > 100.3'F Last administered on 10/22/19 09:22; Start 10/22/19 at 08:00 Buspirone HCl (Buspar) 10 mg BIDACBL PO Last administered on 10/22/19 11:17; Start 10/22/19 at 11:30; Stop 10/24/19 at 11:40; Status DC Ferrous Sulfate (Feosol) 325 mg BIDWMEALS PO Last administered on 10/29/19 08:51; Start 10/22/19 at 09:00 Gabapentin (Neurontin) 100 mg TID PO Last administered on 10/22/19 21:07; Start 10/22/19 at 09:00; Stop 10/23/19 at 11:16; Status DC Pantoprazole Sodium (Protonix) 40 mg DAILYAC PO Last administered on 10/29/19 07:51; Start 10/22/19 at 08:15 Trazodone HCl (Desyrel) 50 mg QHS PO Last administered on 10/28/19 21:12; Start 10/22/19 at 21:00 Insulin Glargine (Lantus Syringe) 5 unit QHS SQ Last administered on 10/28/19 21:54; Start 10/22/19 at 21:00 Non-Formulary Medication (Melatonin ) 2 tab QHS PO ; Start 10/22/19 at 21:00; Status UNV Insulin Human Lispro (HumaLOG) 0-7 UNITS TIDACHC SQ Last administered on 10/26/19at 12:26; Start 10/22/19 at 11:30 Dextrose (Dextrose 50%-Water Syringe) 12.5 gm PRN Q15MIN PRN IV SEE COMMENTS; Start 10/22/19 at 08:00 Sodium Chloride 1,000 ml @ 1,000 mls/hr 1X ONCE IV Last administered on 10/22/19at 11:17; Start 10/22/19 at 10:00; Stop 10/22/19 at 10:59; Status DC Lorazepam (Ativan Inj) 1 mg PRN Q5MIN PRN IVP ANXIETY / AGITATION Last administered on 10/25/19at 18:32; Start 10/22/19 at 11:00; Stop 10/25/19 at 18:34; Status DC Psyllium Hydrophilic Mucilloid (Metamucil Fiber Packet) 1 pkt QHS PO Last administered on 10/28/19at 21:15; Start 10/22/19 at 21:00 Iohexol (Omnipaque 240 Mg/ml) 30 ml 1X ONCE PO Last administered on 10/22/19at 11:00; Start 10/22/19 at 11:00; Stop 10/22/19 at 11:01; Status DC Iohexol (Omnipaque 300 Mg/ml) 75 ml 1X ONCE IV Last administered on 10/22/19at 11:00; Start 10/22/19 at 11:00; Stop 10/22/19 at 11:01; Status DC Info (CONTRAST GIVEN -- Rx MONITORING) 1 each PRN DAILY PRN MC SEE COMMENTS; Start 10/22/19 at 11:15; Stop 10/24/19 at 11:14; Status DC Enoxaparin Sodium (Lovenox 40mg Syringe) 40 mg Q24H SQ ; Start 10/22/19 at 12:00; Stop 10/22/19 at 15:51; Status DC Oxycodone HCl (Roxicodone) 5 mg PRN Q6HRS PRN PO MODERATE PAIN 4-6 (USE 1ST) Last administered on 10/29/19at 08:54; Start 10/22/19 at 11:30 Piperacillin Sod/ Tazobactam Sod 3.375 gm/Sodium Chloride 50 ml @ 100 mls/hr Q6HRS IV Last administered on 10/24/19at 12:08; Start 10/22/19 at 16:00; Stop 10/24/19 at 16:43; Status DC Piperacillin Sod/ Tazobactam Sod (Zosyn Per Pharmacy) 1 each PRN DAILY PRN MC SEE COMMENTS; Start 10/22/19 at 16:00; Stop 10/24/19 at 17:17; Status DC Vancomycin HCl (Vancomycin Oral Solution) 125 mg [id number] JT Last administered on 10/29/19at 13:52; Start 10/23/19 at 17:00 Sodium Chloride 1,000 ml @ 100 mls/hr 1X ONCE IV Last administered on 10/24/19at 03:10; Start 10/24/19 at 03:00; Stop 10/24/19 at 12:59; Status DC Morphine Sulfate (Morphine Sulfate) 4 mg PRN Q3HRS PRN IV PAIN Last administer ed on 10/29/19at 15:26; Start 10/24/19 at 03:00 Lidocaine (Lidoderm) 1 patch DAILY TD Last administered on 10/25/19at 09:04; Start 10/24/19 at 12:00; Stop 10/25/19 at 16:18; Status DC Diclofenac Sodium (Voltaren) 1 devorah BID TP Last administered on 10/29/19at 08:57; Start 10/24/19 at 12:00 Miscellaneous (Lidoderm Patch Removal) 1 ea QHS MC Last administered on 10/25/19at 21:00; Start 10/24/19 at 21:00; Stop 10/25/19 at 22:00; Status DC Buspirone HCl (Buspar) 10 mg PRN QID PRN PO anxiety; Start 10/24/19 at 11:45 Enoxaparin Sodium (Lovenox 40mg Syringe) 40 mg Q24H SQ Last administered on 10/28/19at 16:57; Start 10/24/19 at 17:00 Furosemide (Lasix) 20 mg DAILY PO Last administered on 10/29/19at 08:51; Start 10/25/19 at 13:00 Metoprolol Tartrate (Lopressor) 25 mg BID PO Last administered on 10/29/19 08:51; Start 10/25/19 at 13:00 Phenyleph/Shark Oil/Min Oil/Petrol (Preparation H) 1 devorah PRN QID PRN RC RECTAL PAIN Last administered on 10/27/19 09:54; Start 10/25/19 at 12:45 Lidocaine (Lidoderm) 1 patch QHS TD Last administered on 10/28/19 21:14; Start 10/26/19 at 21:00 Lactobacillus Rhamnosus (Culturelle) 1 cap BID PO Last administered on 10/29/19 08:50; Start 10/25/19 at 21:00 Miscellaneous (Lidoderm Patch Removal) 1 ea DAILY MC Last administered on 10/29/19 08:57; Start 10/27/19 at 09:00 Mirtazapine (Remeron) 15 mg QHS PO Last administered on 10/28/19 21:12; Start 10/27/19 at 21:00 Sodium Chloride 1,000 ml @ 75 mls/hr [id number] IV Last administered on 10/29/19 02:09; Start 10/29/19 at 01:45 Alprazolam (Xanax) 0.25 mg PRN BID PRN PO 2nd CHOICE ANXIETY / AGITATION Last administered on 10/29/19 13:47; Start 10/29/19 at 13:45 Iohexol (Omnipaque 240 Mg/ml) 50 ml STK-MED ONCE .ROUTE ; Start 10/29/19 at 15:25; Stop 10/29/19 at 15:25; Status DC Iohexol (Omnipaque 240 Mg/ml) 50 ml 1X ONCE IJ Last administered on 10/29/19at 16:12; Start 10/29/19 at 15:45; Stop 10/29/19 at 15:55; Status DC Iohexol (Omnipaque 240 Mg/ml) 50 ml STK-MED ONCE .ROUTE ; Start 10/29/19 at 16:09; Stop 10/29/19 at 16:09; Status DC Active Scripts Active Reported Buspirone Hcl 10 Mg Tablet 1 Tab PO BIDACBL Alprazolam 0.5 Mg Tablet 1 Tab PO HS Acetaminophen 500 Mg Tablet 1 Tab PO PRN Q6HRS PRN 15 Days Levemir (Insulin Detemir) 100 Unit/1 Ml Vial 5 Unit SQ DAILY PRN 5 units daily in morning if bs greater than 200. Oxycodone Hcl Immed.release (Oxycodone Hcl) 15 Mg Tablet 15 Mg PO PRN Q6HRS PRN Ferrous Sulfate 325 Mg Tablet 65 Mg PO BID Metformin Hcl 500 Mg Tablet 500 Mg PO BIDWMEALS Amlodipine Besylate 10 Mg Tablet 10 Mg PO DAILY Pantoprazole Sodium (Pantoprazole Sodium) 40 Mg Tablet.dr 40 Mg PO DAILYAC Trazodone Hcl 50 Mg Tablet 1 Tab PO QHS Furosemide 20 Mg Tablet 1 Tab PO DAILY Gabapentin (Gabapentin) 100 Mg Capsule 100 Mg PO TID Metoprolol Tartrate 100 Mg Tablet 1 Tab PO BID Melatonin 3 Mg Tablet 2 Tab PO QHS Vitals/I & O Vital Sign - Last 24 Hours 10/28/19 10/28/19 10/28/19 10/28/19 19:00 20:00 20:25 21:12 Temp 98.1 98.1 Pulse 103 103 Resp 16 B/P (MAP) 98/67 (77) 98/67 Pulse Ox 97 O2 Delivery Room Air Room Air Room Air 10/28/19 10/28/19 10/28/19 10/29/19 21:16 21:46 23:31 00:35 Temp 98.0 98.0 Pulse 94 Resp 16 B/P (MAP) 107/69 (82) Pulse Ox 97 97 99 99 O2 Delivery Room Air Room Air Room Air Room Air 10/29/19 10/29/19 10/29/19 10/29/19 02:34 03:54 07:00 08:00 Temp 98.3 97.9 98.3 97.9 Pulse 98 101 Resp 16 18 B/P (MAP) 94/63 (73) 91/56 (68) Pulse Ox 100 100 97 O2 Delivery Room Air Room Air Room Air Room Air 10/29/19 10/29/19 10/29/19 10/29/19 08:51 08:54 08:56 09:26 Pulse 110 O2 Delivery Room Air Room Air Room Air 10/29/19 10/29/19 10/29/19 10/29/19 09:54 11:00 15:00 15:26 Temp 97.1 98.0 97.1 98.0 Pulse 95 108 Resp 18 18 B/P (MAP) 91/62 (72) 92/57 (69) Pulse Ox 99 98 99 O2 Delivery Room Air Room Air Room Air Room Air 10/29/19 15:56 O2 Delivery Room Air Intake and Output 10/28/19 10/28/19 10/29/19 15:00 23:00 07:00 Intake Total 200 ml 240 ml Output Total 150 ml 75 ml 200 ml Balance -150 ml 125 ml 40 ml Nutrition Consultation Dietary Evaluation: Recommendations by RD: Dietary education by RD, Increase Calorie Intake, Protein supplementation, Add supplement feedings Comments: Continue w/ADA diet w/supplements as ordered, however ok per RD to liberalize diet as needed to honor food preferences and promote PO intake Continue w/nocturnal TFs per order, increasing rate 10 ml q8 hrs to goal of 60 ml/hr pending pt tolerance REC MVI and Vit C for wound healing Expected Outcomes/Goals: nutritition intake to meet >75% est needs - goal ongoing Interpretation of weight loss: >7.5% in 3 months Malnutrition Findings: Food and Nutrition Intake (Sev: <50% est energy req 5days Weight Status: Appropriate Justicifation of Admission Dx: Justifications for Admission: Justification of Admission Dx: Yes Comminuty Aquired Pneumonia: Med-High Risk Pt Sepsis: Infection AZUL MENDEZ MD Oct 29, 2019 17:25
[2019-10-29] MEDS: ENOXAPARIN 40 MG/0.4 ML SYRINGE. SQ SCH (17:54)
[2019-10-29 18:16] VITALS: BP 106/67
[2019-10-29] MEDS: INSULIN GLARGINE SYRINGE. SQ SCH (21:00)
[2019-10-29] MEDS: traZODone 50 MG TABLET. PO SCH (21:09)
[2019-10-29] MEDS: MIRTAZAPINE 15 MG TABLET PO SCH (21:09)
[2019-10-29] MEDS: PSYLLIUM HUSK (SUGAR FREE) 1 PKT PACKET PO SCH (21:09)
[2019-10-29] MEDS: LIDOCAINE (700MG/PATCH) PATCH. TD SCH (21:13)
[2019-10-29 23:20] VITALS: BP 114/76
[2019-10-30] MEDS: ONDANSETRON PF 4 MG/2 ML VIAL. IV PRN ×4 (00:22→21:03)
[2019-10-30] MEDS: MORPHINE SULFATE 4 MG/ML VIAL. IV PRN ×4 (00:23→20:29)
[2019-10-30 02:50] VITALS: BP 98/63
[2019-10-30 07:00] VITALS: BP 103/77
[2019-10-30] MEDS: INSULIN LISPRO 300 UNITS/3 ML VIAL. SQ SCH ×5 (07:30→20:50)
[2019-10-30] MEDS: oxyCODONE IR 5 MG TABLET PO PRN ×2 (07:50→17:32)
[2019-10-30] MEDS: PANTOPRAZOLE 40 MG TABLET.DR. PO SCH (08:03)
[2019-10-30] MEDS: IV NORMAL SALINE 1000ML BAG 1,000 ML IV SCH ×2 (08:04→23:20)
--- NOTE | 2019-10-30 08:22 | NUR ---
Assumed patient care this AM. Patient has multiple complaints regarding stomach feeling distended and full after overnight tube feeding. This RN advised that tube feeding was slowing infusing over night and will take some time to adjust to the sensation, however tube is functional with very minimal residual. Patient also requested that tele monitor be removed as it feels "heavy" against is abdomen. When advised that we can allow it to sit on the bed/mattress, patient got upset and stopped communicating staring off at the TV.
[2019-10-30] MEDS: PATCH REMOVAL. MC SCH (09:00)
[2019-10-30] MEDS: FUROSEMIDE 20 MG TABLET PO SCH (09:04)
[2019-10-30] MEDS: METOPROLOL TART IMMED RELEASE 25 MG TABLET. PO SCH ×2 (09:04→20:49)
[2019-10-30] MEDS: FERROUS SULFATE 325 MG TABLET. PO SCH ×2 (09:04→17:32)
[2019-10-30] MEDS: LACTOBACILLUS RHAMNOSUS GG 1 CAPSULE. PO SCH ×2 (09:04→20:49)
[2019-10-30] MEDS: DICLOFENAC SODIUM 1% TOPICAL GEL 100GM TUBE. TP SCH ×2 (09:04→21:00)
[2019-10-30] MEDS: VANCOMYCIN 125 MG/2.5 ML ORAL SOLUTION. JT SCH ×4 (09:25→20:56)
--- NOTE | 2019-10-30 09:54 | PDOC ---
SURGICAL PROGRESS NOTE Subjective Pt reports feeling overwhelmed with his multiple medical issues, some soreness at J-tube site Vital Signs Vital Signs Date Time Temp Pulse Resp B/P (MAP) Pulse Ox O2 Delivery O2 Flow Rate FiO2 10/30/19 09:04 102 103/77 10/30/19 07:00 98.0 18 100 Room Air 98.0 I&O Intake and Output 10/30/19 07:00 Intake Total 800 ml Output Total 195 ml Balance 605 ml Intake Oral 800 ml Drainage Total 195 ml # Bowel Movements 2 General: Alert, Oriented X3, Cooperative, mild distress Abdomen: Soft, No tenderness, Other (new tube in place, drainage from cholecystostomy tube site, well covered with ostomy bag) Labs Laboratory Tests Test 10/28/19 12:10 10/28/19 17:01 10/28/19 20:25 10/29/19 00:30 Glucose (Fingerstick) 112 mg/dL (70-99) 124 mg/dL (70-99) 157 mg/dL (70-99) White Blood Count 11.6 x10^3/uL (4.0-11.0) Red Blood Count 2.92 x10^6/uL (4.30-5.70) Hemoglobin 7.8 g/dL (13.0-17.5) Hematocrit 23.5 % (39.0-53.0) Mean Corpuscular Volume 80 fL (79-100) Mean Corpuscular Hemoglobin 27 pg (25-35) Mean Corpuscular Hemoglobin Concent 33 g/dL (31-37) Red Cell Distribution Width 21.4 % (11.5-14.5) Platelet Count 321 x10^3/uL (140-400) Neutrophils (%) (Auto) 78 % (31-73) Lymphocytes (%) (Auto) 13 % (24-48) Monocytes (%) (Auto) 9 % (0-9) Eosinophils (%) (Auto) 0 % (0-3) Basophils (%) (Auto) 0 % (0-3) Neutrophils # (Auto) 9.1 x10^3/uL (1.8-7.7) Lymphocytes # (Auto) 1.5 x10^3/uL (1.0-4.8) Monocytes # (Auto) 1.1 x10^3/uL (0.0-1.1) Eosinophils # (Auto) 0.0 x10^3/uL (0.0-0.7) Basophils # (Auto) 0.0 x10^3/uL (0.0-0.2) Sodium Level 131 mmol/L (136-145) Potassium Level 4.3 mmol/L (3.5-5.1) Chloride Level 99 mmol/L (98-107) Carbon Dioxide Level 26 mmol/L (21-32) Anion Gap 6 (6-14) Blood Urea Nitrogen 9 mg/dL (8-26) Creatinine 1.0 mg/dL (0.7-1.3) Estimated GFR (Cockcroft-Gault) 96.1 Glucose Level 97 mg/dL (70-99) Lactic Acid Level 2.4 mmol/L (0.4-2.0) Calcium Level 7.0 mg/dL (8.5-10.1) Test 10/29/19 05:55 10/29/19 07:26 10/29/19 12:06 10/29/19 17:20 Lactic Acid Level 1.8 mmol/L (0.4-2.0) Glucose (Fingerstick) 114 mg/dL (70-99) 113 mg/dL (70-99) 131 mg/dL (70-99) Test 10/29/19 21:12 10/30/19 07:21 Glucose (Fingerstick) 94 mg/dL (70-99) 166 mg/dL (70-99) Laboratory Tests Test 10/29/19 12:06 10/29/19 17:20 10/29/19 21:12 10/30/19 07:21 Glucose (Fingerstick) 113 mg/dL (70-99) 131 mg/dL (70-99) 94 mg/dL (70-99) 166 mg/dL (70-99) Problem List Problems Medical Problems: (1) Pneumonia Status: Acute (2) Sepsis Status: Acute Assessment/Plan cont abx for c diff and tube feeds for severe malnutrition will need to improve nutritional status prior to any other interventions. Justicifation of Admission Dx: Justifications for Admission: Justification of Admission Dx: Yes Comminuty Aquired Pneumonia: Med-High Risk Pt Sepsis: Infection KARLA CALL MD Oct 30, 2019 09:54
[2019-10-30 10:29] VITALS: BP 103/73
--- NOTE | 2019-10-30 10:38 | PDOC ---
Subjective: Subjective: Going to get cleaned up. Doesn't feel well. Abdomen distended, tube site sore, feels full. Diarrhea better. Objective: Objective: D/w nurse - DC today? J tube functioning, abdomen uncomfortable, diarrhea better. Vital Signs: Vital Signs Date Time Temp Pulse Resp B/P (MAP) Pulse Ox O2 Delivery O2 Flow Rate FiO2 10/30/19 10:29 98.0 110 18 103/73 (83) 96 Room Air 98.0 Labs: Laboratory Tests Test 10/29/19 12:06 10/29/19 17:20 10/29/19 21:12 10/30/19 07:21 Glucose (Fingerstick) 113 mg/dL 131 mg/dL 94 mg/dL 166 mg/dL BLOOD CULTURE Preliminary NO GROWTH AFTER 1 DAY Imaging: IR procedure 10/28 report pending PE: GEN: chronically ill LUNGS: CTAB HEART: tachycardic ABD: bag w/ drainage from right abdomen, distended, J tube NEURO/PSYCH: A & O 3 A/P: Recent pancreatic necrosectomy, J tube in place s/p IR procedure C Diff diarrhea - on vanco -- DC discussed? Continue vanco and tube feeds. Justicifation of Admission Dx: Justifications for Admission: Justification of Admission Dx: Yes Comminuty Aquired Pneumonia: Med-High Risk Pt Sepsis: Infection PAXTON ALEXANDER Oct 30, 2019 10:38
[2019-10-30 14:32] VITALS: BP 94/61
--- NOTE | 2019-10-30 14:33 | PDOC ---
PROGRESS NOTES Chief Complaint Chief Complaint A/P: RUQ abdominal pain - with recent h/o gallstone pancreatitis,t GI and general surgery following, well known to both services. CT abdomen/pelvis with significant ascites Leukocytosis - improved C diff Diarrhea: on PO vanc H/o recent Severe pancreatitis s/p ex-lap with pancreatic necrosectomy, cholecystostomy tube placement, gastrostomy tube placement, tracheostomy placement, 5 drains, 1.5L ascites drained - likely gallstone pancreatitis Status post tracheostomy - reversed, recovered Hyponatremia - will restart fluids Severe protein calorie malnutrition - would restart G-tube feeds if ok with general surgery, home child care provider following. Physician deconditioning - PT OT Hypocalcemia Hepatitis B LLL small effusion - still present. Hyperglycemia - cont insulin FEN - General diet PPX - lovenox FULL CODE History of Present Illness History of Present Illness Mr Mata is a 49yo M w/ PMHx pancreatitis s/p ex-lap with pancreatic necrosectomy, gastrostomy tube placement, s/p tracheostomy, hepatitis B who returns to the hospital with his from home c/o diarrhea and RUQ pain that began on 10/21/2019. He was hospitalized for what was ultimately diagnosed as gallstone pancreatitis 06/11/2019-07/22/2019 [underwent hemodialysis for renal failure, stopped 07/04/2019, on 06/22/2019 is s/p ex-lap with pancreatic necrosectomy, cholecystostomy tube placement, gastrostomy tube placement, 5 drains, 1.5L ascites drained, and s/p tracheostomy at that time] and discharged to [facility] for further recovery. He reports he has been recovering at home with his . Has been off antibiotics since 07/31/2019. He has been short of breath but that is no different than it has been for the past 2 months. No cough no recent sick contacts. He is lost 60 pounds since prior to his May hospitalization. Labs: WBC 19.4, Hb 8.6, platelets 456, NA 131, K4.6, BUN 17, CR 0.9, glucose 130, lactic acid 2.2, albumin 1.8, alkaline phosphatase 283, calcium 7.9 lipase normal. CXR interpreted as atelectasis versus left lower lobe infiltrate, was dosed with Levaquin in ED. BP 98/54. Admitted for further care. Plan: j tube replaced by IR. abdominal pain this AM. feeling sob Lidoderm and diclofenac for back pain Cont vancomycin Rectal hydrocortisone follow labs Vitals Vitals Vital Signs Date Time Temp Pulse Resp B/P (MAP) Pulse Ox O2 Delivery O2 Flow Rate FiO2 10/30/19 13:01 Room Air 10/30/19 10:29 98.0 110 18 103/73 (83) 96 98.0 Physical Exam General: Alert, Oriented X3, Cooperative, mild distress Heart: Regular rate, Normal S1, Normal S2 Lungs: Clear Abdomen: Soft, No tenderness, Other (new tube in place, drainage from cholecystostomy tube site, well covered with ostomy bag) Extremities: No clubbing, No cyanosis, No edema, Normal pulses, No tenderness/swelling Skin: No rashes, No breakdown, No significant lesion Labs LABS Laboratory Tests Test 10/29/19 17:20 10/29/19 21:12 10/30/19 07:21 10/30/19 11:23 Glucose (Fingerstick) 131 mg/dL (70-99) 94 mg/dL (70-99) 166 mg/dL (70-99) 128 mg/dL (70-99) Assessment and Plan Assessmemt and Plan Problems Medical Problems: (1) Pneumonia Status: Acute (2) Sepsis Status: Acute Comment Review of Relevant I have reviewed the following items alexandra (where applicable) has been applied. Labs Laboratory Tests Test 10/28/19 17:01 10/28/19 20:25 10/29/19 00:30 10/29/19 05:55 Glucose (Fingerstick) 124 mg/dL (70-99) 157 mg/dL (70-99) White Blood Count 11.6 x10^3/uL (4.0-11.0) Red Blood Count 2.92 x10^6/uL (4.30-5.70) Hemoglobin 7.8 g/dL (13.0-17.5) Hematocrit 23.5 % (39.0-53.0) Mean Corpuscular Volume 80 fL (79-100) Mean Corpuscular Hemoglobin 27 pg (25-35) Mean Corpuscular Hemoglobin Concent 33 g/dL (31-37) Red Cell Distribution Width 21.4 % (11.5-14.5) Platelet Count 321 x10^3/uL (140-400) Neutrophils (%) (Auto) 78 % (31-73) Lymphocytes (%) (Auto) 13 % (24-48) Monocytes (%) (Auto) 9 % (0-9) Eosinophils (%) (Auto) 0 % (0-3) Basophils (%) (Auto) 0 % (0-3) Neutrophils # (Auto) 9.1 x10^3/uL (1.8-7.7) Lymphocytes # (Auto) 1.5 x10^3/uL (1.0-4.8) Monocytes # (Auto) 1.1 x10^3/uL (0.0-1.1) Eosinophils # (Auto) 0.0 x10^3/uL (0.0-0.7) Basophils # (Auto) 0.0 x10^3/uL (0.0-0.2) Sodium Level 131 mmol/L (136-145) Potassium Level 4.3 mmol/L (3.5-5.1) Chloride Level 99 mmol/L (98-107) Carbon Dioxide Level 26 mmol/L (21-32) Anion Gap 6 (6-14) Blood Urea Nitrogen 9 mg/dL (8-26) Creatinine 1.0 mg/dL (0.7-1.3) Estimated GFR (Cockcroft-Gault) 96.1 Glucose Level 97 mg/dL (70-99) Lactic Acid Level 2.4 mmol/L (0.4-2.0) 1.8 mmol/L (0.4-2.0) Calcium Level 7.0 mg/dL (8.5-10.1) Test 10/29/19 07:26 10/29/19 12:06 10/29/19 17:20 10/29/19 21:12 Glucose (Fingerstick) 114 mg/dL (70-99) 113 mg/dL (70-99) 131 mg/dL (70-99) 94 mg/dL (70-99) Test 10/30/19 07:21 10/30/19 11:23 Glucose (Fingerstick) 166 mg/dL (70-99) 128 mg/dL (70-99) Laboratory Tests Test 10/29/19 17:20 10/29/19 21:12 10/30/19 07:21 10/30/19 11:23 Glucose (Fingerstick) 131 mg/dL (70-99) 94 mg/dL (70-99) 166 mg/dL (70-99) 128 mg/dL (70-99) Microbiology 10/29/19 Blood Culture - Preliminary, Resulted NO GROWTH AFTER 1 DAY Medications Current Medications Sodium Chloride 1,000 ml @ 1,000 mls/hr 1X ONCE IV Last administered on 10/21/19at 18:18; Start 10/21/19 at 18:00; Stop 10/21/19 at 18:59; Status DC Levofloxacin/ Dextrose 150 ml @ 100 mls/hr 1X ONCE IV Last administered on 10/21/19at 19:58; Start 10/21/19 at 19:45; Stop 10/21/19 at 21:14; Status DC Ondansetron HCl (Zofran) 4 mg PRN Q8HRS PRN IV NAUSEA/VOMITING; Start 10/21/19 at 20:30; Stop 10/22/19 at 07:58; Status DC Morphine Sulfate (Morphine Sulfate) 2 mg PRN Q2HR PRN IV PAIN; Start 10/21/19 at 20:30; Stop 10/22/19 at 07:58; Status DC Oxycodone HCl (Roxicodone) 15 mg PRN Q6HRS PRN PO PAIN Last administered on 10/22/19at 05:46; Start 10/21/19 at 21:00; Stop 10/22/19 at 11:30; Status DC Sodium Chloride 1,000 ml @ 1,000 mls/hr 1X ONCE IV Last administered on 10/21/19at 22:18; Start 10/21/19 at 22:30; Stop 10/21/19 at 23:29; Status DC Alprazolam (Xanax) 0.5 mg 1X ONCE PO Last administered on 10/21/19at 23:22; Start 10/21/19 at 23:30; Stop 10/21/19 at 23:31; Status DC Trazodone HCl (Desyrel) 50 mg 1X ONCE PO Last administered on 10/21/19at 23:22; Start 10/21/19 at 23:30; Stop 10/21/19 at 23:31; Status DC Morphine Sulfate (Morphine Sulfate) 2 mg PRN Q4HRS PRN IV MODERATE PAIN Last administered on 10/24/19 00:28; Start 10/22/19 at 08:00; Stop 10/24/19 at 02:44; Status DC Ondansetron HCl (Zofran) 4 mg PRN Q4HRS PRN IV NAUSEA/VOMITING Last administered on 10/30/19 12:46; Start 10/22/19 at 08:00 Acetaminophen (Tylenol) 500 mg PRN Q6HRS PRN PO MILD PAIN / TEMP > 100.3'F Last administered on 10/22/19 09:22; Start 10/22/19 at 08:00 Buspirone HCl (Buspar) 10 mg BIDACBL PO Last administered on 10/22/19 11:17; Start 10/22/19 at 11:30; Stop 10/24/19 at 11:40; Status DC Ferrous Sulfate (Feosol) 325 mg BIDWMEALS PO Last administered on 10/30/19 09:04; Start 10/22/19 at 09:00 Gabapentin (Neurontin) 100 mg TID PO Last administered on 10/22/19 21:07; Start 10/22/19 at 09:00; Stop 10/23/19 at 11:16; Status DC Pantoprazole Sodium (Protonix) 40 mg DAILYAC PO Last administered on 10/30/19 08:03; Start 10/22/19 at 08:15 Trazodone HCl (Desyrel) 50 mg QHS PO Last administered on 10/29/19at 21:09; Start 10/22/19 at 21:00 Insulin Glargine (Lantus Syringe) 5 unit QHS SQ Last administered on 10/28/19at 21:54; Start 10/22/19 at 21:00 Non-Formulary Medication (Melatonin ) 2 tab QHS PO ; Start 10/22/19 at 21:00; Status UNV Insulin Human Lispro (HumaLOG) 0-7 UNITS TIDACHC SQ Last administered on 10/30/19at 09:09; Start 10/22/19 at 11:30 Dextrose (Dextrose 50%-Water Syringe) 12.5 gm PRN Q15MIN PRN IV SEE COMMENTS; Start 10/22/19 at 08:00 Sodium Chloride 1,000 ml @ 1,000 mls/hr 1X ONCE IV Last administered on 10/22/19at 11:17; Start 10/22/19 at 10:00; Stop 10/22/19 at 10:59; Status DC Lorazepam (Ativan Inj) 1 mg PRN Q5MIN PRN IVP ANXIETY / AGITATION Last administered on 10/25/19at 18:32; Start 10/22/19 at 11:00; Stop 10/25/19 at 18:34; Status DC Psyllium Hydrophilic Mucilloid (Metamucil Fiber Packet) 1 pkt QHS PO Last administered on 10/29/19at 21:09; Start 10/22/19 at 21:00 Iohexol (Omnipaque 240 Mg/ml) 30 ml 1X ONCE PO Last administered on 10/22/19at 11:00; Start 10/22/19 at 11:00; Stop 10/22/19 at 11:01; Status DC Iohexol (Omnipaque 300 Mg/ml) 75 ml 1X ONCE IV Last administered on 10/22/19at 11:00; Start 10/22/19 at 11:00; Stop 10/22/19 at 11:01; Status DC Info (CONTRAST GIVEN -- Rx MONITORING) 1 each PRN DAILY PRN MC SEE COMMENTS; Start 10/22/19 at 11:15; Stop 10/24/19 at 11:14; Status DC Enoxaparin Sodium (Lovenox 40mg Syringe) 40 mg Q24H SQ ; Start 10/22/19 at 12:00; Stop 10/22/19 at 15:51; Status DC Oxycodone HCl (Roxicodone) 5 mg PRN Q6HRS PRN PO MODERATE PAIN 4-6 (USE 1ST) Last administered on 10/29/19at 08:54; Start 10/22/19 at 11:30 Piperacillin Sod/ Tazobactam Sod 3.375 gm/Sodium Chloride 50 ml @ 100 mls/hr Q6HRS IV Last administered on 10/24/19at 12:08; Start 10/22/19 at 16:00; Stop 10/24/19 at 16:43; Status DC Piperacillin Sod/ Tazobactam Sod (Zosyn Per Pharmacy) 1 each PRN DAILY PRN MC SEE COMMENTS; Start 10/22/19 at 16:00; Stop 10/24/19 at 17:17; Status DC Vancomycin HCl (Vancomycin Oral Solution) 125 mg [id number] JT Last administered on 10/30/19 09:25; Start 10/23/19 at 17:00 Sodium Chloride 1,000 ml @ 100 mls/hr 1X ONCE IV Last administered on 10/24/19at 03:10; Start 10/24/19 at 03:00; Stop 10/24/19 at 12:59; Status DC Morphine Sulfate (Morphine Sulfate) 4 mg PRN Q3HRS PRN IV PAIN Last administered on 10/30/19at 12:31; Start 10/24/19 at 03:00 Lidocaine (Lidoderm) 1 patch DAILY TD Last administered on 10/25/19 09:04; Start 10/24/19 at 12:00; Stop 10/25/19 at 16:18; Status DC Diclofenac Sodium (Voltaren) 1 devorah BID TP Last administered on 10/30/19at 09:04; Start 10/24/19 at 12:00 Miscellaneous (Lidoderm Patch Removal) 1 ea QHS MC Last administered on 10/25/19at 21:00; Start 10/24/19 at 21:00; Stop 10/25/19 at 22:00; Status DC Buspirone HCl (Buspar) 10 mg PRN QID PRN PO anxiety; Start 10/24/19 at 11:45 Enoxaparin Sodium (Lovenox 40mg Syringe) 40 mg Q24H SQ Last administered on 10/29/19at 17:54; Start 10/24/19 at 17:00 Furosemide (Lasix) 20 mg DAILY PO Last administered on 10/30/19at 09:04; Start 10/25/19 at 13:00 Metoprolol Tartrate (Lopressor) 25 mg BID PO Last administered on 10/30/19 09:04; Start 10/25/19 at 13:00 Phenyleph/Shark Oil/Min Oil/Petrol (Preparation H) 1 devorah PRN QID PRN RC RECTAL PAIN Last administered on 10/27/19at 09:54; Start 10/25/19 at 12:45 Lidocaine (Lidoderm) 1 patch QHS TD Last administered on 10/29/19at 21:13; Start 10/26/19 at 21:00 Lactobacillus Rhamnosus (Culturelle) 1 cap BID PO Last administered on 10/30/19at 09:04; Start 10/25/19 at 21:00 Miscellaneous (Lidoderm Patch Removal) 1 ea DAILY MC Last administered on 10/30/19at 09:00; Start 10/27/19 at 09:00 Mirtazapine (Remeron) 15 mg QHS PO Last administered on 10/29/19at 21:09; Start 10/27/19 at 21:00 Sodium Chloride 1,000 ml @ 75 mls/hr [id number] IV Last administered on 10/30/19at 08:04; Start 10/29/19 at 01:45 Alprazolam (Xanax) 0.25 mg PRN BID PRN PO 2nd CHOICE ANXIETY / AGITATION Last administered on 10/29/19at 13:47; Start 10/29/19 at 13:45 Iohexol (Omnipaque 240 Mg/ml) 50 ml STK-MED ONCE .ROUTE ; Start 10/29/19 at 15:25; Stop 10/29/19 at 15:25; Status DC Iohexol (Omnipaque 240 Mg/ml) 50 ml 1X ONCE IJ Last administered on 10/29/19at 16:12; Start 10/29/19 at 15:45; Stop 10/29/19 at 15:55; Status DC Iohexol (Omnipaque 240 Mg/ml) 50 ml STK-MED ONCE .ROUTE ; Start 10/29/19 at 16:09; Stop 10/29/19 at 16:09; Status DC Active Scripts Active Reported Buspirone Hcl 10 Mg Tablet 1 Tab PO BIDACBL Alprazolam 0.5 Mg Tablet 1 Tab PO HS Acetaminophen 500 Mg Tablet 1 Tab PO PRN Q6HRS PRN 15 Days Levemir (Insulin Detemir) 100 Unit/1 Ml Vial 5 Unit SQ DAILY PRN 5 units daily in morning if bs greater than 200. Oxycodone Hcl Immed.release (Oxycodone Hcl) 15 Mg Tablet 15 Mg PO PRN Q6HRS PRN Ferrous Sulfate 325 Mg Tablet 65 Mg PO BID Metformin Hcl 500 Mg Tablet 500 Mg PO BIDWMEALS Amlodipine Besylate 10 Mg Tablet 10 Mg PO DAILY Pantoprazole Sodium (Pantoprazole Sodium) 40 Mg Tablet.dr 40 Mg PO DAILYAC Trazodone Hcl 50 Mg Tablet 1 Tab PO QHS Furosemide 20 Mg Tablet 1 Tab PO DAILY Gabapentin (Gabapentin) 100 Mg Capsule 100 Mg PO TID Metoprolol Tartrate 100 Mg Tablet 1 Tab PO BID Melatonin 3 Mg Tablet 2 Tab PO QHS Vitals/I & O Vital Sign - Last 24 Hours 10/29/19 10/29/19 10/29/19 10/29/19 15:00 15:26 15:56 18:16 Temp 98.0 98.1 98.0 98.1 Pulse 108 99 Resp 18 18 B/P (MAP) 92/57 (69) 106/67 (80) Pulse Ox 98 99 100 O2 Delivery Room Air Room Air Room Air Room Air 10/29/19 10/29/19 10/29/19 10/30/19 20:00 20:00 23:20 00:23 Temp 97.9 97.9 Pulse 111 Resp 18 B/P (MAP) 114/76 (89) Pulse Ox 100 100 100 O2 Delivery Room Air Room Air Room Air Room Air 10/30/19 10/30/19 10/30/19 10/30/19 02:50 05:09 07:00 08:00 Temp 98.0 98.0 98.0 98.0 Pulse 102 Resp 18 16 18 B/P (MAP) 98/63 (75) 103/77 (86) Pulse Ox 98 98 100 O2 Delivery Room Air Room Air Room Air Room Air 10/30/19 10/30/19 10/30/19 10/30/19 09:04 10:29 12:31 13:01 Temp 98.0 98.0 Pulse 102 110 Resp 18 B/P (MAP) 103/77 103/73 (83) Pulse Ox 96 O2 Delivery Room Air Room Air Room Air Intake and Output 10/29/19 10/29/19 10/30/19 15:00 23:00 07:00 Intake Total 600 ml 200 ml 0 ml Output Total 65 ml 30 ml 100 ml Balance 535 ml 170 ml -100 ml Nutrition Consultation Dietary Evaluation: Recommendations by RD: Dietary education by RD, Increase Calorie Intake, Protein supplementation, Add supplement feedings Comments: Continue w/ADA diet w/supplements as ordered, however ok per RD to liberalize diet as needed to honor food preferences and promote PO intake Continue w/nocturnal TFs per order, increasing rate 10 ml q8 hrs to goal of 60 ml/hr pending pt tolerance REC MVI and Vit C for wound healing Expected Outcomes/Goals: nutritition intake to meet >75% est needs - goal ongoing Interpretation of weight loss: >7.5% in 3 months Malnutrition Findings: Food and Nutrition Intake (Sev: <50% est energy req 5days Weight Status: Appropriate Justicifation of Admission Dx: Justifications for Admission: Justification of Admission Dx: Yes Comminuty Aquired Pneumonia: Med-High Risk Pt Sepsis: Infection AZUL MENDEZ MD Oct 30, 2019 14:33
--- NOTE | 2019-10-30 17:10 | NUR ---
Wound Care Evaluated pt's drain bag over RUQ, pt stated it was working well, with no leakage noted. Discussed with pt that we would return tomorrow to change the appliance prior to the weekend and/or pt's anticipated discharge, pt agreeable. Additional Urostomy pouches will be given for pt to sample until drain site closes or he can get Urostomy bags supplied.
[2019-10-30] MEDS: ENOXAPARIN 40 MG/0.4 ML SYRINGE. SQ SCH (17:33)
[2019-10-30 19:33] VITALS: BP 115/68
[2019-10-30] MEDS: traZODone 50 MG TABLET. PO SCH (20:49)
[2019-10-30] MEDS: MIRTAZAPINE 15 MG TABLET PO SCH (20:49)
[2019-10-30] MEDS: PSYLLIUM HUSK (SUGAR FREE) 1 PKT PACKET PO SCH (20:50)
[2019-10-30] MEDS: INSULIN GLARGINE SYRINGE. SQ SCH (20:53)
[2019-10-30] MEDS: LIDOCAINE (700MG/PATCH) PATCH. TD SCH (21:00)
[2019-10-30 23:00] VITALS: BP 91/65
[2019-10-31] MEDS: ALPRAZolam 0.25 MG TABLET PO PRN (00:34)
[2019-10-31] MEDS: MORPHINE SULFATE 4 MG/ML VIAL. IV PRN ×4 (00:35→21:54)
[2019-10-31 04:00] VITALS: BP 99/65
[2019-10-31 07:00] VITALS: BP 99/67
[2019-10-31] MEDS: ONDANSETRON PF 4 MG/2 ML VIAL. IV PRN ×3 (07:18→21:53)
[2019-10-31] MEDS: INSULIN LISPRO 300 UNITS/3 ML VIAL. SQ SCH ×4 (07:30→21:00)
[2019-10-31] MEDS: PANTOPRAZOLE 40 MG TABLET.DR. PO SCH (08:34)
[2019-10-31] MEDS: FUROSEMIDE 20 MG TABLET PO SCH (08:34)
[2019-10-31] MEDS: METOPROLOL TART IMMED RELEASE 25 MG TABLET. PO SCH (08:37)
[2019-10-31] MEDS: VANCOMYCIN 125 MG/2.5 ML ORAL SOLUTION. JT SCH ×4 (08:37→21:59)
[2019-10-31] MEDS: LACTOBACILLUS RHAMNOSUS GG 1 CAPSULE. PO SCH ×2 (08:37→21:53)
[2019-10-31] MEDS: FERROUS SULFATE 325 MG TABLET. PO SCH ×2 (08:37→17:18)
--- NOTE | 2019-10-31 08:37 | PDOC ---
MAXIMILIANO MELGOZA PROMPT CARE RN 10/31/19 0837: SURGICAL PROGRESS NOTE Subjective pain is better today ate breakfast tolerated TF Vital Signs Vital Signs Date Time Temp Pulse Resp B/P (MAP) Pulse Ox O2 Delivery O2 Flow Rate FiO2 10/31/19 07:11 20 10/31/19 07:00 97.5 98 99/67 (78) 97 Room Air 97.5 I&O Intake and Output 10/31/19 07:00 Intake Total 1574 ml Output Total 910 ml Balance 664 ml Intake Oral 1315 ml Tube Feeding 259 ml Output Urine Total 850 ml Gastric Drainage Total 0 ml Drainage Total 60 ml General: Alert, Oriented X3, Cooperative Abdomen: Other (distened, drainage from old drain sites ) Labs Laboratory Tests Test 10/29/19 12:06 10/29/19 17:20 10/29/19 21:12 10/30/19 07:21 Glucose (Fingerstick) 113 mg/dL (70-99) 131 mg/dL (70-99) 94 mg/dL (70-99) 166 mg/dL (70-99) Test 10/30/19 11:23 10/30/19 17:13 10/30/19 18:02 10/30/19 19:56 Glucose (Fingerstick) 128 mg/dL (70-99) 53 mg/dL (70-99) 83 mg/dL (70-99) 113 mg/dL (70-99) Test 10/31/19 07:46 Glucose (Fingerstick) 100 mg/dL (70-99) Laboratory Tests Test 10/30/19 11:23 10/30/19 17:13 10/30/19 18:02 10/30/19 19:56 Glucose (Fingerstick) 128 mg/dL (70-99) 53 mg/dL (70-99) 83 mg/dL (70-99) 113 mg/dL (70-99) Test 10/31/19 07:46 Glucose (Fingerstick) 100 mg/dL (70-99) Problem List Problems Medical Problems: (1) Pneumonia Status: Acute (2) Sepsis Status: Acute Assessment/Plan ok to work toward DC TF at home c diff treatment Dr Leslie available over the weekend if needed IF discharges can FU in office with Dr Dawson Justicifation of Admission Dx: Justifications for Admission: Justification of Admission Dx: Yes Comminuty Aquired Pneumonia: Med-High Risk Pt Sepsis: Infection KARLA DAWSON MD 10/31/191: SURGICAL PROGRESS NOTE Assessment/Plan Pt seen and examined. Agree with Ms. Melgoza's note Pt feels better, main c/o is leg swelling abd soft, ND, NTTP, tube in place OK to work on d/c. MAXIMILIANO MELGOZA APRN Oct 31, 2019 08:37 KARLA DAWSON MD Oct 31, 2019 21:11
[2019-10-31 08:42] LABS: BASO % 0 % (0-3); EOS % 0 % (0-3); HEMATOCRIT 24.8 % (39.0-53.0); HEMOGLOBIN 8.1 g/dL (13.0-17.5); LYMPH # 0.8 x10^3/uL (1.0-4.8); LYMPH % 7 % (24-48); MEAN CORPUSCULAR HEMOGLOBIN 27 pg (25-35); MEAN CORPUSCULAR HGB CONC 33 g/dL (31-37); MEAN CORPUSCULAR VOLUME 81 fL (79-100); MONO # 1.1 x10^3/uL (0.0-1.1); MONO % 10 % (0-9); NEUT # 9.3 x10^3/uL (1.8-7.7); NEUT % 83 % (31-73); PLATELET COUNT 327 x10^3/uL (140-400); RED BLOOD COUNT 3.05 x10^6/uL (4.30-5.70); RED CELL DISTRIBUTION WIDTH 21.5 % (11.5-14.5); WHITE BLOOD COUNT 11.2 x10^3/uL (4.0-11.0)
[2019-10-31 08:55] LABS: ALBUMIN 1.1 g/dL (3.4-5.0); ALBUMIN/GLOBULIN RATIO 0.2 (1.0-1.7); CALCIUM 7.1 mg/dL (8.5-10.1); CREATININE 0.8 mg/dL (0.7-1.3); DIRECT BILIRUBIN 0.3 mg/dL (0.0-0.2); GFR 124.3; POTASSIUM 4.2 mmol/L (3.5-5.1); TOTAL BILIRUBIN 0.6 mg/dL (0.2-1.0); TOTAL PROTEIN 6.1 g/dL (6.4-8.2)
[2019-10-31] MEDS: PATCH REMOVAL. MC SCH (09:00)
[2019-10-31] MEDS: DICLOFENAC SODIUM 1% TOPICAL GEL 100GM TUBE. TP SCH ×2 (09:00→22:02)
--- NOTE | 2019-10-31 09:13 | NUR ---
administered 12.5 mg metoprolol instead of 25 mg due to pt BP
[2019-10-31] MEDS ORDERED: OXYC15TA3 PO (09:43)
[2019-10-31] MEDS ORDERED: VANC500V JT (09:43)
--- NOTE | 2019-10-31 09:45 | SNU/HH DC ---
DISCHARGE WITH HOME HEALTH DISCHARGE INFORMATION: Discharge Date: Oct 31, 2019 Final Diagnosis: Problems Medical Problems: (1) Pneumonia Status: Acute (2) Sepsis Status: Acute Condition on Discharge: Stable CODE STATUS: Code Status: Full HOME HEALTH: Face to Face: I certify this patient is under my care and that I, or a nurse practitioner or physician's litigation legal assistant working with me, had a face to face encounter that meets the physician face to face encounter requirements with this patient on []. RN For Eval/Treatment: Yes Physical Therapy For: Evalulation/Treatment Occupational Therapy For: Evaluation/Treatment Home Health Aide For: Self-care Pt Meets Homebound Status: Fatigue w/ amb. POST DISCHARGE ORDERS: Activity Instructions for Disc: Activity as tolerated Weight Bearing Status after Di: As tolerated DIET AFTER DISCHARGE: ADA Wound/Incision Care: Keep wound/cast CDI TREATMENT/EQUIPMENT ORDERS: Adaptive Equipment Issued: None Discharge Respiratory Equipmen: Oxygen CERTIFICATION STATEMENT: Certification Statement: Certification Statement: Based on the above finding, I certify that this patient is confined to the home and needs intermittent snf care, physical therapy and/or speech therapy, or continues to need occupational therapy.~ This patient is under my care, and I have initiated the establishment of the plan of care.~ This patient will be followed by myself or a community physician who will periodically review the plan of care. Home Meds Active Scripts Vancomycin Hcl (VANCOMYCIN HCL) 500 Mg Vial, 125 MG JT [id number] for c diff for 2 Days, #1 EACH Prov:AZUL MENDEZ MD 10/31/19 Oxycodone Hcl (OXYCODONE HCL IMMED.RELEASE) 15 Mg Tablet, 15 MG PO PRN Q6HRS PRN for PAIN for 5 Days, #1 TAB 0 Refills Prov:AZUL MENDEZ MD 10/31/19 Reported Medications Buspirone Hcl (BUSPIRONE HCL) 10 Mg Tablet, 1 TAB PO BIDACBL for anxiety, #60 TAB 1 Refill 10/21/19 Alprazolam (ALPRAZOLAM) 0.5 Mg Tablet, 1 TAB PO HS for anxiety, #30 TAB 10/16/19 Acetaminophen (ACETAMINOPHEN) 500 Mg Tablet, 1 TAB PO PRN Q6HRS PRN for pain or fever for 15 Days, #60 TAB 0 Refills 10/16/19 Ferrous Sulfate (FERROUS SULFATE) 325 Mg Tablet, 65 MG PO BID for supplement/anemia, TAB 10/16/19 Pantoprazole Sodium (PANTOPRAZOLE SODIUM ) 40 Mg Tablet.dr, 40 MG PO DAILYAC for GERD, TAB 08/15/19 Trazodone Hcl (TRAZODONE HCL) 50 Mg Tablet, 1 TAB PO QHS for sleep, #30 TAB 1 Refill 08/15/19 Gabapentin (GABAPENTIN ) 100 Mg Capsule, 100 MG PO TID for NEUROGENIC PAIN, CAP 08/15/19 Discontinued Reported Medications Insulin Detemir (LEVEMIR) 100 Unit/1 Ml Vial, 5 UNIT SQ DAILY PRN for PER PROTOCOL, VIAL 5 units daily in morning if bs greater than 200. 10/16/19 Metformin Hcl (METFORMIN HCL) 500 Mg Tablet, 500 MG PO BIDWMEALS for ANTI- DIABETIC, TAB 0 Refills 10/16/19 Amlodipine Besylate (AMLODIPINE BESYLATE) 10 Mg Tablet, 10 MG PO DAILY for HTN, TAB 10/16/19 Furosemide (FUROSEMIDE) 20 Mg Tablet, 1 TAB PO DAILY for rx, #90 TAB 1 Refill 08/15/19 Metoprolol Tartrate (METOPROLOL TARTRATE) 100 Mg Tablet, 1 TAB PO BID for BP/Heart rate, #60 TAB 5 Refills 08/15/19 Melatonin (MELATONIN) 3 Mg Tablet, 2 TAB PO QHS for sleep, #30 TAB 2 Refills 08/15/19 AZUL MENDEZ MD Oct 31, 2019 09:45
--- NOTE | 2019-10-31 10:15 | PDOC3 ---
Discharge Summary Visit Information Date of Admission: Oct 21, 2019 Date of Discharge: Oct 31, 2019 Final Diagnosis Problems Medical Problems: (1) Pneumonia Status: Acute (2) Sepsis Status: Acute Brief Hospital Course Allergies GENERAL: No apparent distress. Alert and oriented. HEENT: Head normocephalic, atraumatic. NECK: Supple LUNGS: Clear to auscultation. HEART: RRR, S1, S2 present, pulses intact ABDOMEN: Soft, positive bowel sounds. EXTREMITIES: LE swelling present NEUROLOGIC: Normal speech, normal tone PSYCHIATRIC: Normal affect, normal mood. SKIN: No ulceration. feeding tube in place. noted swelling on penis shaft. no pain or hematuria. likely edema from all the fluids. Allergies Coded Allergies Type Severity Reaction Last Updated Verified No Known Drug Allergies 01/28/16 No Vital Signs Vital Signs Date Time Temp Pulse Resp B/P (MAP) Pulse Ox O2 Delivery O2 Flow Rate FiO2 10/31/19 08:37 98 99/67 10/31/19 08:00 Room Air 10/31/19 07:40 97 10/31/19 07:11 20 10/31/19 07:00 97.5 97.5 Lab Results Laboratory Tests Test 10/29/19 12:06 10/29/19 17:20 10/29/19 21:12 10/30/19 07:21 Glucose (Fingerstick) 113 mg/dL (70-99) 131 mg/dL (70-99) 94 mg/dL (70-99) 166 mg/dL (70-99) Test 10/30/19 11:23 10/30/19 17:13 10/30/19 18:02 10/30/19 19:56 Glucose (Fingerstick) 128 mg/dL (70-99) 53 mg/dL (70-99) 83 mg/dL (70-99) 113 mg/dL (70-99) Test 10/31/19 07:46 10/31/19 08:25 Glucose (Fingerstick) 100 mg/dL (70-99) White Blood Count 11.2 x10^3/uL (4.0-11.0) Red Blood Count 3.05 x10^6/uL (4.30-5.70) Hemoglobin 8.1 g/dL (13.0-17.5) Hematocrit 24.8 % (39.0-53.0) Mean Corpuscular Volume 81 fL (79-100) Mean Corpuscular Hemoglobin 27 pg (25-35) Mean Corpuscular Hemoglobin Concent 33 g/dL (31-37) Red Cell Distribution Width 21.5 % (11.5-14.5) Platelet Count 327 x10^3/uL (140-400) Neutrophils (%) (Auto) 83 % (31-73) Lymphocytes (%) (Auto) 7 % (24-48) Monocytes (%) (Auto) 10 % (0-9) Eosinophils (%) (Auto) 0 % (0-3) Basophils (%) (Auto) 0 % (0-3) Neutrophils # (Auto) 9.3 x10^3/uL (1.8-7.7) Lymphocytes # (Auto) 0.8 x10^3/uL (1.0-4.8) Monocytes # (Auto) 1.1 x10^3/uL (0.0-1.1) Eosinophils # (Auto) 0.0 x10^3/uL (0.0-0.7) Basophils # (Auto) 0.0 x10^3/uL (0.0-0.2) Sodium Level 131 mmol/L (136-145) Potassium Level 4.2 mmol/L (3.5-5.1) Chloride Level 100 mmol/L (98-107) Carbon Dioxide Level 26 mmol/L (21-32) Anion Gap 5 (6-14) Blood Urea Nitrogen 12 mg/dL (8-26) Creatinine 0.8 mg/dL (0.7-1.3) Estimated GFR (Cockcroft-Gault) 124.3 BUN/Creatinine Ratio 15 (6-20) Glucose Level 100 mg/dL (70-99) Calcium Level 7.1 mg/dL (8.5-10.1) Total Bilirubin 0.6 mg/dL (0.2-1.0) Direct Bilirubin 0.3 mg/dL (0.0-0.2) Aspartate Amino Transf (AST/SGOT) 19 U/L (15-37) Alanine Aminotransferase (ALT/SGPT) 13 U/L (16-63) Alkaline Phosphatase 431 U/L (46-116) Total Protein 6.1 g/dL (6.4-8.2) Albumin 1.1 g/dL (3.4-5.0) Albumin/Globulin Ratio 0.2 (1.0-1.7) Laboratory Tests Test 10/30/19 11:23 10/30/19 17:13 10/30/19 18:02 10/30/19 19:56 Glucose (Fingerstick) 128 mg/dL (70-99) 53 mg/dL (70-99) 83 mg/dL (70-99) 113 mg/dL (70-99) Test 10/31/19 07:46 10/31/19 08:25 Glucose (Fingerstick) 100 mg/dL (70-99) White Blood Count 11.2 x10^3/uL (4.0-11.0) Red Blood Count 3.05 x10^6/uL (4.30-5.70) Hemoglobin 8.1 g/dL (13.0-17.5) Hematocrit 24.8 % (39.0-53.0) Mean Corpuscular Volume 81 fL (79-100) Mean Corpuscular Hemoglobin 27 pg (25-35) Mean Corpuscular Hemoglobin Concent 33 g/dL (31-37) Red Cell Distribution Width 21.5 % (11.5-14.5) Platelet Count 327 x10^3/uL (140-400) Neutrophils (%) (Auto) 83 % (31-73) Lymphocytes (%) (Auto) 7 % (24-48) Monocytes (%) (Auto) 10 % (0-9) Eosinophils (%) (Auto) 0 % (0-3) Basophils (%) (Auto) 0 % (0-3) Neutrophils # (Auto) 9.3 x10^3/uL (1.8-7.7) Lymphocytes # (Auto) 0.8 x10^3/uL (1.0-4.8) Monocytes # (Auto) 1.1 x10^3/uL (0.0-1.1) Eosinophils # (Auto) 0.0 x10^3/uL (0.0-0.7) Basophils # (Auto) 0.0 x10^3/uL (0.0-0.2) Sodium Level 131 mmol/L (136-145) Potassium Level 4.2 mmol/L (3.5-5.1) Chloride Level 100 mmol/L (98-107) Carbon Dioxide Level 26 mmol/L (21-32) Anion Gap 5 (6-14) Blood Urea Nitrogen 12 mg/dL (8-26) Creatinine 0.8 mg/dL (0.7-1.3) Estimated GFR (Cockcroft-Gault) 124.3 BUN/Creatinine Ratio 15 (6-20) Glucose Level 100 mg/dL (70-99) Calcium Level 7.1 mg/dL (8.5-10.1) Total Bilirubin 0.6 mg/dL (0.2-1.0) Direct Bilirubin 0.3 mg/dL (0.0-0.2) Aspartate Amino Transf (AST/SGOT) 19 U/L (15-37) Alanine Aminotransferase (ALT/SGPT) 13 U/L (16-63) Alkaline Phosphatase 431 U/L (46-116) Total Protein 6.1 g/dL (6.4-8.2) Albumin 1.1 g/dL (3.4-5.0) Albumin/Globulin Ratio 0.2 (1.0-1.7) Brief Hospital Course Mr Mata is a 49yo M w/ PMHx pancreatitis s/p ex-lap with pancreatic necrosectomy, gastrostomy tube placement, s/p tracheostomy, hepatitis B who returns to the hospital with his from home c/o diarrhea and RUQ pain that began on 10/21/2019. He was hospitalized for what was ultimately diagnosed as gallstone pancreatitis 06/11/2019-07/22/2019 [underwent hemodialysis for renal failure, stopped 07/04/2019, on 06/22/2019 is s/p ex-lap with pancreatic necrosectomy, cholecystostomy tube placement, gastrostomy tube placement, 5 drains, 1.5L ascites drained, and s/p tracheostomy at that time] and discharged to [facility] for further recovery. He reports he has been recovering at home with his . Has been off antibiotics since 07/31/2019. He has been short of breath but that is no different than it has been for the past 2 months. No cough no recent sick contacts. He is lost 60 pounds since prior to his May hospitalization. Labs: WBC 19.4, Hb 8.6, platelets 456, NA 131, K4.6, BUN 17, CR 0.9, glucose 130, lactic acid 2.2, albumin 1.8, alkaline phosphatase 283, calcium 7.9 lipase normal. CXR interpreted as atelectasis versus left lower lobe infiltrate, was dosed with Levaquin in ED. BP 98/54. Admitted for further care. A/P: RUQ abdominal pain - with recent h/o gallstone pancreatitis,t GI and general surgery following, well known to both services. CT abdomen/pelvis with significant ascites Leukocytosis - improved C diff Diarrhea: on PO vanc. to complete 10 days at time of discharge. needs 2 more days H/o recent Severe pancreatitis s/p ex-lap with pancreatic necrosectomy, cholecystostomy tube placement, gastrostomy tube placement, tracheostomy placement, 5 drains, 1.5L ascites drained - likely gallstone pancreatitis. given script for oxycodone at dischaarge Status post tracheostomy - reversed, recovered Hyponatremia - resolved Severe protein calorie malnutrition - started G-tube feeds Physician deconditioning - PT OT followed Hypocalcemia Hepatitis B LLL small effusion - still present. Hyperglycemia - cont insulin. no insulin at dc. Plan at discharge j tube replaced by IR during hospitalization but tolerating TFs at night well. Cont vancomycin for two more days at discharge to complete 10 day course noted swelling around penis shaft. likely due to edema and fluids given. will refer to Urology for follow up. needs to follow up with gen sx following discharge. hold lasix BB and metformin at dc. a1c 7%. can restart lasix and BB if BP improves. BP low normal at discharge Discharge Information Condition at Discharge: Stable Follow Up: Weeks (gen sx and urology follow up) Disposition/Orders: D/C to Home w/ HH Scheduled Alprazolam (Alprazolam) 0.5 Mg Tablet, 1 TAB PO HS for anxiety, #30 (Reported) Entered as Reported by: EMELY CALDERON on 10/16/19 0933 Buspirone Hcl (Buspirone Hcl) 10 Mg Tablet, 1 TAB PO BIDACBL for anxiety, #60 Ref 1 (Reported) Entered as Reported by: Aneudy Dsouza on 10/21/19 1259 Last Action: Continued on 10/22/19 9407 by JUAN ANTONIO OWUSU MD Ferrous Sulfate (Ferrous Sulfate) 325 Mg Tablet, 65 MG PO BID for supplement/anemia, (Reported) Entered as Reported by: EMELY CALDERON on 10/16/19932 Last Action: Continued on 10/22/19758 by JUAN ANTONIO OWUSU MD Gabapentin (Gabapentin ) 100 Mg Capsule, 100 MG PO TID for NEUROGENIC PAIN, (Reported) Entered as Reported by: VERONICA FORD on 08/15/191104 Last Action: Continued on 10/22/19758 by JUAN ANTONIO OWUSU MD Pantoprazole Sodium (Pantoprazole Sodium ) 40 Mg Tablet.dr, 40 MG PO DAILYAC for GERD, (Reported) Entered as Reported by: VERONICA FORD on 08/15/191105 Last Action: Continued on 10/22/19758 by JUAN ANTONIO OWUSU MD Trazodone Hcl (Trazodone Hcl) 50 Mg Tablet, 1 TAB PO QHS for sleep, #30 Ref 1 (Reported) Entered as Reported by: VERONICA FORD on 08/15/191104 Last Action: Continued on 10/22/19758 by JUAN ANTONIO OWUSU MD Vancomycin Hcl (Vancomycin Hcl) 500 Mg Vial, 125 MG JT [id number] for c diff for 2 Days, #1 Prescribed by: AZUL MENDEZ MD on 10/31/19942 Scheduled PRN Acetaminophen (Acetaminophen) 500 Mg Tablet, 1 TAB PO PRN Q6HRS PRN for pain or fever for 15 Days, #60 Ref 0 (Reported) Entered as Reported by: EMELY CALDERON on 10/16/19932 Last Action: Continued on 10/22/19758 by JUAN ANTONIO OWUSU MD Oxycodone Hcl (Oxycodone Hcl Immed.release) 15 Mg Tablet, 15 MG PO PRN Q6HRS PRN for PAIN for 5 Days, #1 Ref 0 Prescribed by: AZUL MENDEZ MD on 10/31/19942 Discontinued Medications Amlodipine Besylate (Amlodipine Besylate) 10 Mg Tablet, 10 MG PO DAILY for HTN, (Reported) Entered as Reported by: VERONICA FORD on 10/16/19858 Last Action: HELD on 10/22/19757 by JUAN ANTONIO OWUSU MD Furosemide (Furosemide) 20 Mg Tablet, 1 TAB PO DAILY for rx, #90 Ref 1 (Reported) Entered as Reported by: VERONICA FORD on 08/15/191104 Last Action: Continued on 10/25/19 1236 by JU RYAN RN Insulin Detemir (Levemir) 100 Unit/1 Ml Vial, 5 UNIT SQ DAILY PRN for PER PROTOCOL, (Reported) 5 units daily in morning if bs greater than 200. Entered as Reported by: EMELY CALDERON on 10/16/19 0933 Last Action: Converted on 10/22/19758 by JUAN ANTONIO OWUSU MD Melatonin (Melatonin) 3 Mg Tablet, 2 TAB PO QHS for sleep, #30 Ref 2 (Reported) Entered as Reported by: VERONICA FORD on 08/15/191104 Last Action: Converted on 10/22/19758 by JUAN ANTONIO OWUSU MD Metformin Hcl (Metformin Hcl) 500 Mg Tablet, 500 MG PO BIDWMEALS for ANTI- DIABETIC, Ref 0 (Reported) Entered as Reported by: VERONICA FORD on 10/16/19 0859 Last Action: HELD on 10/22/19757 by JUAN ANTONIO OWUSU MD Metoprolol Tartrate (Metoprolol Tartrate) 100 Mg Tablet, 1 TAB PO BID for BP/Heart rate, #60 Ref 5 (Reported) Entered as Reported by: VERONICA FORD on 08/15/191104 Last Action: HELD on 10/22/19757 by JUAN ANTONIO OWUSU MD Justicifation of Admission Dx: Justifications for Admission: Justification of Admission Dx: Yes Comminuty Aquired Pneumonia: Med-High Risk Pt Sepsis: Infection AZUL MENDEZ MD Oct 31, 2019 10:14
[2019-10-31 11:00] VITALS: BP 92/63
[2019-10-31] MEDS: oxyCODONE IR 5 MG TABLET PO PRN (11:13)
--- NOTE | 2019-10-31 11:15 | PDOC ---
Infectious Disease Note Vital Sign Vital Signs Vital Signs Date Time Temp Pulse Resp B/P (MAP) Pulse Ox O2 Delivery O2 Flow Rate FiO2 10/31/19 11:00 97.7 91 15 92/63 (73) 99 Room Air 97.7 Labs Lab Laboratory Tests Test 10/30/19 11:23 10/30/19 17:13 10/30/19 18:02 10/30/19 19:56 Glucose (Fingerstick) 128 mg/dL (70-99) 53 mg/dL (70-99) 83 mg/dL (70-99) 113 mg/dL (70-99) Test 10/31/19 07:46 10/31/19 08:25 Glucose (Fingerstick) 100 mg/dL (70-99) White Blood Count 11.2 x10^3/uL (4.0-11.0) Red Blood Count 3.05 x10^6/uL (4.30-5.70) Hemoglobin 8.1 g/dL (13.0-17.5) Hematocrit 24.8 % (39.0-53.0) Mean Corpuscular Volume 81 fL (79-100) Mean Corpuscular Hemoglobin 27 pg (25-35) Mean Corpuscular Hemoglobin Concent 33 g/dL (31-37) Red Cell Distribution Width 21.5 % (11.5-14.5) Platelet Count 327 x10^3/uL (140-400) Neutrophils (%) (Auto) 83 % (31-73) Lymphocytes (%) (Auto) 7 % (24-48) Monocytes (%) (Auto) 10 % (0-9) Eosinophils (%) (Auto) 0 % (0-3) Basophils (%) (Auto) 0 % (0-3) Neutrophils # (Auto) 9.3 x10^3/uL (1.8-7.7) Lymphocytes # (Auto) 0.8 x10^3/uL (1.0-4.8) Monocytes # (Auto) 1.1 x10^3/uL (0.0-1.1) Eosinophils # (Auto) 0.0 x10^3/uL (0.0-0.7) Basophils # (Auto) 0.0 x10^3/uL (0.0-0.2) Sodium Level 131 mmol/L (136-145) Potassium Level 4.2 mmol/L (3.5-5.1) Chloride Level 100 mmol/L (98-107) Carbon Dioxide Level 26 mmol/L (21-32) Anion Gap 5 (6-14) Blood Urea Nitrogen 12 mg/dL (8-26) Creatinine 0.8 mg/dL (0.7-1.3) Estimated GFR (Cockcroft-Gault) 124.3 BUN/Creatinine Ratio 15 (6-20) Glucose Level 100 mg/dL (70-99) Calcium Level 7.1 mg/dL (8.5-10.1) Total Bilirubin 0.6 mg/dL (0.2-1.0) Direct Bilirubin 0.3 mg/dL (0.0-0.2) Aspartate Amino Transf (AST/SGOT) 19 U/L (15-37) Alanine Aminotransferase (ALT/SGPT) 13 U/L (16-63) Alkaline Phosphatase 431 U/L (46-116) Total Protein 6.1 g/dL (6.4-8.2) Albumin 1.1 g/dL (3.4-5.0) Albumin/Globulin Ratio 0.2 (1.0-1.7) Micro Microbiology 10/29/19 Blood Culture - Final, Complete Objective Assessment pt seen, consult dictated Plan Plan of Care / KRISTIAN GOODMAN MD Oct 31, 2019 11:15
--- NOTE | 2019-10-31 12:48 | PDOC ---
Subjective: Subjective: No longer having diarrhea. Eating and tolerating tube feeds. Objective: Objective: D/w nurse - probably won't DC per ID recs. Vital Signs: Vital Signs Date Time Temp Pulse Resp B/P (MAP) Pulse Ox O2 Delivery O2 Flow Rate FiO2 10/31/19 11:00 97.7 91 15 92/63 (73) 99 Room Air 97.7 Labs: Laboratory Tests Test 10/30/19 17:13 10/30/19 18:02 10/30/19 19:56 10/31/19 07:46 Glucose (Fingerstick) 53 mg/dL (70-99) 83 mg/dL (70-99) 113 mg/dL (70-99) 100 mg/dL (70-99) Test 10/31/19 11:55 Glucose (Fingerstick) 136 mg/dL (70-99) BLOOD CULTURE Final GRAM POSITIVE COCCI IN CLUSTERS, SUGGESTIVE OF STAPH, IN 1 OF 4 BOTTLES, TWO SETS DRAWN. CALLED TO CHIQUIS MADRID RN ON 2N AT 10:35 ON 10/31/19 DW MT SENT TO [facility] FOR FURTHER WORKUP PE: GEN: chronically ill - more perky today - in chair w/ feet propped on bed LUNGS: CTAB HEART: RRR ABD: distended, tubes, drainage from right side NEURO/PSYCH: A & O 3 A/P: Recent pancreatic necrosectomy C Diff diarrhea - on vanco GPC bacteremia -- Improved GI-perry. Justicifation of Admission Dx: Justifications for Admission: Justification of Admission Dx: Yes Comminuty Aquired Pneumonia: Med-High Risk Pt Sepsis: Infection PAXTON ALEXANDER Oct 31, 2019 12:48
--- NOTE | 2019-10-31 13:52 | PDOC ---
PROGRESS NOTES Chief Complaint Chief Complaint A/P: RUQ abdominal pain - with recent h/o gallstone pancreatitis,t GI and general surgery following, well known to both services. CT abdomen/pelvis with significant ascites Leukocytosis - improved C diff Diarrhea: on PO vanc H/o recent Severe pancreatitis s/p ex-lap with pancreatic necrosectomy, cholecystostomy tube placement, gastrostomy tube placement, tracheostomy placement, 5 drains, 1.5L ascites drained - likely gallstone pancreatitis Status post tracheostomy - reversed, recovered Hyponatremia - will restart fluids Severe protein calorie malnutrition - would restart G-tube feeds if ok with general surgery, certified detention deputy following. Physician deconditioning - PT OT Hypocalcemia Hepatitis B LLL small effusion - still present. Hyperglycemia - cont insulin GPC in clusters 1/ bottles FEN - General diet PPX - lovenox FULL CODE History of Present Illness History of Present Illness Mr Mata is a 49yo M w/ PMHx pancreatitis s/p ex-lap with pancreatic necrosectomy, gastrostomy tube placement, s/p tracheostomy, hepatitis B who returns to the hospital with his from home c/o diarrhea and RUQ pain that began on 10/21/2019. He was hospitalized for what was ultimately diagnosed as gallstone pancreatitis 06/11/2019-07/22/2019 [underwent hemodialysis for renal failure, stopped 07/04/2019, on 06/22/2019 is s/p ex-lap with pancreatic necrosectomy, cholecystostomy tube placement, gastrostomy tube placement, 5 drains, 1.5L ascites drained, and s/p tracheostomy at that time] and discharged to [facility] for further recovery. He reports he has been recovering at home with his . Has been off antibiotics since 07/31/2019. He has been short of breath but that is no different than it has been for the past 2 months. No cough no recent sick contacts. He is lost 60 pounds since prior to his May hospitalization. Labs: WBC 19.4, Hb 8.6, platelets 456, NA 131, K4.6, BUN 17, CR 0.9, glucose 130, lactic acid 2.2, albumin 1.8, alkaline phosphatase 283, calcium 7.9 lipase normal. CXR interpreted as atelectasis versus left lower lobe infiltrate, was dosed with Levaquin in ED. BP 98/54. Admitted for further care. Plan: j tube replaced by IR. called due to GPC in / bottles. likely contaminant. consult ID continue PO vanc for c diff. hold BP meds given low BP noted swelling around penile shaft. no pain. likely due to edema. needs urology follow up Cont PO vancomycin D8/10 hold metformin at DC. a1c 7%. SSI for now Vitals Vitals Vital Signs Date Time Temp Pulse Resp B/P (MAP) Pulse Ox O2 Delivery O2 Flow Rate FiO2 10/31/19 11:00 97.7 91 15 92/63 (73) 99 Room Air 97.7 Physical Exam General: Alert, Oriented X3, Cooperative Heart: Regular rate, Normal S1, Normal S2 Lungs: Clear Abdomen: Other (distened, drainage from old drain sites ) Extremities: No clubbing, No cyanosis, No edema, Normal pulses, No tenderness/swelling Skin: No rashes, No breakdown, No significant lesion Labs LABS Laboratory Tests Test 10/30/19 17:13 10/30/19 18:02 10/30/19 19:56 10/31/19 07:46 Glucose (Fingerstick) 53 mg/dL (70-99) 83 mg/dL (70-99) 113 mg/dL (70-99) 100 mg/dL (70-99) Test 10/31/19 08:25 10/31/19 11:55 White Blood Count 11.2 x10^3/uL (4.0-11.0) Red Blood Count 3.05 x10^6/uL (4.30-5.70) Hemoglobin 8.1 g/dL (13.0-17.5) Hematocrit 24.8 % (39.0-53.0) Mean Corpuscular Volume 81 fL (79-100) Mean Corpuscular Hemoglobin 27 pg (25-35) Mean Corpuscular Hemoglobin Concent 33 g/dL (31-37) Red Cell Distribution Width 21.5 % (11.5-14.5) Platelet Count 327 x10^3/uL (140-400) Neutrophils (%) (Auto) 83 % (31-73) Lymphocytes (%) (Auto) 7 % (24-48) Monocytes (%) (Auto) 10 % (0-9) Eosinophils (%) (Auto) 0 % (0-3) Basophils (%) (Auto) 0 % (0-3) Neutrophils # (Auto) 9.3 x10^3/uL (1.8-7.7) Lymphocytes # (Auto) 0.8 x10^3/uL (1.0-4.8) Monocytes # (Auto) 1.1 x10^3/uL (0.0-1.1) Eosinophils # (Auto) 0.0 x10^3/uL (0.0-0.7) Basophils # (Auto) 0.0 x10^3/uL (0.0-0.2) Sodium Level 131 mmol/L (136-145) Potassium Level 4.2 mmol/L (3.5-5.1) Chloride Level 100 mmol/L (98-107) Carbon Dioxide Level 26 mmol/L (21-32) Anion Gap 5 (6-14) Blood Urea Nitrogen 12 mg/dL (8-26) Creatinine 0.8 mg/dL (0.7-1.3) Estimated GFR (Cockcroft-Gault) 124.3 BUN/Creatinine Ratio 15 (6-20) Glucose Level 100 mg/dL (70-99) Calcium Level 7.1 mg/dL (8.5-10.1) Total Bilirubin 0.6 mg/dL (0.2-1.0) Direct Bilirubin 0.3 mg/dL (0.0-0.2) Aspartate Amino Transf (AST/SGOT) 19 U/L (15-37) Alanine Aminotransferase (ALT/SGPT) 13 U/L (16-63) Alkaline Phosphatase 431 U/L (46-116) Total Protein 6.1 g/dL (6.4-8.2) Albumin 1.1 g/dL (3.4-5.0) Albumin/Globulin Ratio 0.2 (1.0-1.7) Glucose (Fingerstick) 136 mg/dL (70-99) Assessment and Plan Assessmemt and Plan Problems Medical Problems: (1) Pneumonia Status: Acute (2) Sepsis Status: Acute Comment Review of Relevant I have reviewed the following items alexandra (where applicable) has been applied. Labs Laboratory Tests Test 10/29/19 17:20 10/29/19 21:12 10/30/19 07:21 10/30/19 11:23 Glucose (Fingerstick) 131 mg/dL (70-99) 94 mg/dL (70-99) 166 mg/dL (70-99) 128 mg/dL (70-99) Test 10/30/19 17:13 10/30/19 18:02 10/30/19 19:56 10/31/19 07:46 Glucose (Fingerstick) 53 mg/dL (70-99) 83 mg/dL (70-99) 113 mg/dL (70-99) 100 mg/dL (70-99) Test 10/31/19 08:25 10/31/19 11:55 White Blood Count 11.2 x10^3/uL (4.0-11.0) Red Blood Count 3.05 x10^6/uL (4.30-5.70) Hemoglobin 8.1 g/dL (13.0-17.5) Hematocrit 24.8 % (39.0-53.0) Mean Corpuscular Volume 81 fL (79-100) Mean Corpuscular Hemoglobin 27 pg (25-35) Mean Corpuscular Hemoglobin Concent 33 g/dL (31-37) Red Cell Distribution Width 21.5 % (11.5-14.5) Platelet Count 327 x10^3/uL (140-400) Neutrophils (%) (Auto) 83 % (31-73) Lymphocytes (%) (Auto) 7 % (24-48) Monocytes (%) (Auto) 10 % (0-9) Eosinophils (%) (Auto) 0 % (0-3) Basophils (%) (Auto) 0 % (0-3) Neutrophils # (Auto) 9.3 x10^3/uL (1.8-7.7) Lymphocytes # (Auto) 0.8 x10^3/uL (1.0-4.8) Monocytes # (Auto) 1.1 x10^3/uL (0.0-1.1) Eosinophils # (Auto) 0.0 x10^3/uL (0.0-0.7) Basophils # (Auto) 0.0 x10^3/uL (0.0-0.2) Sodium Level 131 mmol/L (136-145) Potassium Level 4.2 mmol/L (3.5-5.1) Chloride Level 100 mmol/L (98-107) Carbon Dioxide Level 26 mmol/L (21-32) Anion Gap 5 (6-14) Blood Urea Nitrogen 12 mg/dL (8-26) Creatinine 0.8 mg/dL (0.7-1.3) Estimated GFR (Cockcroft-Gault) 124.3 BUN/Creatinine Ratio 15 (6-20) Glucose Level 100 mg/dL (70-99) Calcium Level 7.1 mg/dL (8.5-10.1) Total Bilirubin 0.6 mg/dL (0.2-1.0) Direct Bilirubin 0.3 mg/dL (0.0-0.2) Aspartate Amino Transf (AST/SGOT) 19 U/L (15-37) Alanine Aminotransferase (ALT/SGPT) 13 U/L (16-63) Alkaline Phosphatase 431 U/L (46-116) Total Protein 6.1 g/dL (6.4-8.2) Albumin 1.1 g/dL (3.4-5.0) Albumin/Globulin Ratio 0.2 (1.0-1.7) Glucose (Fingerstick) 136 mg/dL (70-99) Laboratory Tests Test 10/30/19 17:13 10/30/19 18:02 10/30/19 19:56 10/31/19 07:46 Glucose (Fingerstick) 53 mg/dL (70-99) 83 mg/dL (70-99) 113 mg/dL (70-99) 100 mg/dL (70-99) Test 10/31/19 08:25 10/31/19 11:55 White Blood Count 11.2 x10^3/uL (4.0-11.0) Red Blood Count 3.05 x10^6/uL (4.30-5.70) Hemoglobin 8.1 g/dL (13.0-17.5) Hematocrit 24.8 % (39.0-53.0) Mean Corpuscular Volume 81 fL (79-100) Mean Corpuscular Hemoglobin 27 pg (25-35) Mean Corpuscular Hemoglobin Concent 33 g/dL (31-37) Red Cell Distribution Width 21.5 % (11.5-14.5) Platelet Count 327 x10^3/uL (140-400) Neutrophils (%) (Auto) 83 % (31-73) Lymphocytes (%) (Auto) 7 % (24-48) Monocytes (%) (Auto) 10 % (0-9) Eosinophils (%) (Auto) 0 % (0-3) Basophils (%) (Auto) 0 % (0-3) Neutrophils # (Auto) 9.3 x10^3/uL (1.8-7.7) Lymphocytes # (Auto) 0.8 x10^3/uL (1.0-4.8) Monocytes # (Auto) 1.1 x10^3/uL (0.0-1.1) Eosinophils # (Auto) 0.0 x10^3/uL (0.0-0.7) Basophils # (Auto) 0.0 x10^3/uL (0.0-0.2) Sodium Level 131 mmol/L (136-145) Potassium Level 4.2 mmol/L (3.5-5.1) Chloride Level 100 mmol/L (98-107) Carbon Dioxide Level 26 mmol/L (21-32) Anion Gap 5 (6-14) Blood Urea Nitrogen 12 mg/dL (8-26) Creatinine 0.8 mg/dL (0.7-1.3) Estimated GFR (Cockcroft-Gault) 124.3 BUN/Creatinine Ratio 15 (6-20) Glucose Level 100 mg/dL (70-99) Calcium Level 7.1 mg/dL (8.5-10.1) Total Bilirubin 0.6 mg/dL (0.2-1.0) Direct Bilirubin 0.3 mg/dL (0.0-0.2) Aspartate Amino Transf (AST/SGOT) 19 U/L (15-37) Alanine Aminotransferase (ALT/SGPT) 13 U/L (16-63) Alkaline Phosphatase 431 U/L (46-116) Total Protein 6.1 g/dL (6.4-8.2) Albumin 1.1 g/dL (3.4-5.0) Albumin/Globulin Ratio 0.2 (1.0-1.7) Glucose (Fingerstick) 136 mg/dL (70-99) Microbiology 10/29/19 Blood Culture - Final, Complete Medications Current Medications Sodium Chloride 1,000 ml @ 1,000 mls/hr 1X ONCE IV Last administered on 10/21/19at 18:18; Start 10/21/19 at 18:00; Stop 10/21/19 at 18:59; Status DC Levofloxacin/ Dextrose 150 ml @ 100 mls/hr 1X ONCE IV Last administered on 10/21/19at 19:58; Start 10/21/19 at 19:45; Stop 10/21/19 at 21:14; Status DC Ondansetron HCl (Zofran) 4 mg PRN Q8HRS PRN IV NAUSEA/VOMITING; Start 10/21/19 at 20:30; Stop 10/22/19 at 07:58; Status DC Morphine Sulfate (Morphine Sulfate) 2 mg PRN Q2HR PRN IV PAIN; Start 10/21/19 at 20:30; Stop 10/22/19 at 07:58; Status DC Oxycodone HCl (Roxicodone) 15 mg PRN Q6HRS PRN PO PAIN Last administered on 10/22/19at 05:46; Start 10/21/19 at 21:00; Stop 10/22/19 at 11:30; Status DC Sodium Chloride 1,000 ml @ 1,000 mls/hr 1X ONCE IV Last administered on 10/21/19at 22:18; Start 10/21/19 at 22:30; Stop 10/21/19 at 23:29; Status DC Alprazolam (Xanax) 0.5 mg 1X ONCE PO Last administered on 10/21/19at 23:22; Start 10/21/19 at 23:30; Stop 10/21/19 at 23:31; Status DC Trazodone HCl (Desyrel) 50 mg 1X ONCE PO Last administered on 10/21/19at 23:22; Start 10/21/19 at 23:30; Stop 10/21/19 at 23:31; Status DC Morphine Sulfate (Morphine Sulfate) 2 mg PRN Q4HRS PRN IV MODERATE PAIN Last administered on 10/24/19at 00:28; Start 10/22/19 at 08:00; Stop 10/24/19 at 02:44; Status DC Ondansetron HCl (Zofran) 4 mg PRN Q4HRS PRN IV NAUSEA/VOMITING Last administered on 10/31/19at 07:18; Start 10/22/19 at 08:00 Acetaminophen (Tylenol) 500 mg PRN Q6HRS PRN PO MILD PAIN / TEMP > 100.3'F Last administered on 10/22/19at 09:22; Start 10/22/19 at 08:00 Buspirone HCl (Buspar) 10 mg BIDACBL PO Last administered on 10/22/19 11:17; Start 10/22/19 at 11:30; Stop 10/24/19 at 11:40; Status DC Ferrous Sulfate (Feosol) 325 mg BIDWMEALS PO Last administered on 10/31/19at 08:37; Start 10/22/19 at 09:00 Gabapentin (Neurontin) 100 mg TID PO Last administered on 10/22/19at 21:07; Start 10/22/19 at 09:00; Stop 10/23/19 at 11:16; Status DC Pantoprazole Sodium (Protonix) 40 mg DAILYAC PO Last administered on 10/31/19at 08:34; Start 10/22/19 at 08:15 Trazodone HCl (Desyrel) 50 mg QHS PO Last administered on 10/30/19at 20:49; Start 10/22/19 at 21:00 Insulin Glargine (Lantus Syringe) 5 unit QHS SQ Last administered on 10/28/19at 21:54; Start 10/22/19 at 21:00 Non-Formulary Medication (Melatonin ) 2 tab QHS PO ; Start 10/22/19 at 21:00; Status UNV Insulin Human Lispro (HumaLOG) 0-7 UNITS TIDACHC SQ Last administered on 10/30/19at 09:09; Start 10/22/19 at 11:30 Dextrose (Dextrose 50%-Water Syringe) 12.5 gm PRN Q15MIN PRN IV SEE COMMENTS; Start 10/22/19 at 08:00 Sodium Chloride 1,000 ml @ 1,000 mls/hr 1X ONCE IV Last administered on 10/22/19 11:17; Start 10/22/19 at 10:00; Stop 10/22/19 at 10:59; Status DC Lorazepam (Ativan Inj) 1 mg PRN Q5MIN PRN IVP ANXIETY / AGITATION Last administered on 10/25/19at 18:32; Start 10/22/19 at 11:00; Stop 10/25/19 at 18:34; Status DC Psyllium Hydrophilic Mucilloid (Metamucil Fiber Packet) 1 pkt QHS PO Last administered on 10/30/19at 20:50; Start 10/22/19 at 21:00 Iohexol (Omnipaque 240 Mg/ml) 30 ml 1X ONCE PO Last administered on 10/22/19at 11:00; Start 10/22/19 at 11:00; Stop 10/22/19 at 11:01; Status DC Iohexol (Omnipaque 300 Mg/ml) 75 ml 1X ONCE IV Last administered on 10/22/19at 11:00; Start 10/22/19 at 11:00; Stop 10/22/19 at 11:01; Status DC Info (CONTRAST GIVEN -- Rx MONITORING) 1 each PRN DAILY PRN MC SEE COMMENTS; Start 10/22/19 at 11:15; Stop 10/24/19 at 11:14; Status DC Enoxaparin Sodium (Lovenox 40mg Syringe) 40 mg Q24H SQ ; Start 10/22/19 at 12:00; Stop 10/22/19 at 15:51; Status DC Oxycodone HCl (Roxicodone) 5 mg PRN Q6HRS PRN PO MODERATE PAIN 4-6 (USE 1ST) Last administered on 10/31/19at 11:13; Start 10/22/19 at 11:30 Piperacillin Sod/ Tazobactam Sod 3.375 gm/Sodium Chloride 50 ml @ 100 mls/hr Q6HRS IV Last administered on 10/24/19at 12:08; Start 10/22/19 at 16:00; Stop 10/24/19 at 16:43; Status DC Piperacillin Sod/ Tazobactam Sod (Zosyn Per Pharmacy) 1 each PRN DAILY PRN MC SEE COMMENTS; Start 10/22/19 at 16:00; Stop 10/24/19 at 17:17; Status DC Vancomycin HCl (Vancomycin Oral Solution) 125 mg [id number] JT Last administered on 10/31/19at 12:47; Start 10/23/19 at 17:00 Sodium Chloride 1,000 ml @ 100 mls/hr 1X ONCE IV Last administered on 10/24/19at 03:10; Start 10/24/19 at 03:00; Stop 10/24/19 at 12:59; Status DC Morphine Sulfate (Morphine Sulfate) 4 mg PRN Q3HRS PRN IV PAIN Last administered on 10/31/19 07:11; Start 10/24/19 at 03:00 Lidocaine (Lidoderm) 1 patch DAILY TD Last administered on 10/25/19at 09:04; Start 10/24/19 at 12:00; Stop 10/25/19 at 16:18; Status DC Diclofenac Sodium (Voltaren) 1 devorah BID TP Last administered on 10/31/19 09:00; Start 10/24/19 at 12:00 Miscellaneous (Lidoderm Patch Removal) 1 ea QHS MC Last administered on 10/25/19 21:00; Start 10/24/19 at 21:00; Stop 10/25/19 at 22:00; Status DC Buspirone HCl (Buspar) 10 mg PRN QID PRN PO anxiety; Start 10/24/19 at 11:45 Enoxaparin Sodium (Lovenox 40mg Syringe) 40 mg Q24H SQ Last administered on 10/30/19at 17:33; Start 10/24/19 at 17:00 Furosemide (Lasix) 20 mg DAILY PO Last administered on 10/31/19 08:34; Start 10/25/19 at 13:00 Metoprolol Tartrate (Lopressor) 25 mg BID PO Last administered on 10/31/19 08:37; Start 10/25/19 at 13:00 Phenyleph/Shark Oil/Min Oil/Petrol (Preparation H) 1 devorah PRN QID PRN RC RECTAL PAIN Last administered on 10/27/19at 09:54; Start 10/25/19 at 12:45 Lidocaine (Lidoderm) 1 patch QHS TD Last administered on 10/29/19at 21:13; Start 10/26/19 at 21:00 Lactobacillus Rhamnosus (Culturelle) 1 cap BID PO Last administered on 10/31/19 08:37; Start 10/25/19 at 21:00 Miscellaneous (Lidoderm Patch Removal) 1 ea DAILY MC Last administered on 10/31/19at 09:00; Start 10/27/19 at 09:00 Mirtazapine (Remeron) 15 mg QHS PO Last administered on 10/30/19at 20:49; Start 10/27/19 at 21:00 Sodium Chloride 1,000 ml @ 75 mls/hr [id number] IV Last administered on 10/30/19at 23:20; Start 10/29/19 at 01:45; Stop 10/31/19 at 09:13; Status DC Alprazolam (Xanax) 0.25 mg PRN BID PRN PO 2nd CHOICE ANXIETY / AGITATION Last administered on 10/31/19at 00:34; Start 10/29/19 at 13:45 Iohexol (Omnipaque 240 Mg/ml) 50 ml STK-MED ONCE .ROUTE ; Start 10/29/19 at 15:25; Stop 10/29/19 at 15:25; Status DC Iohexol (Omnipaque 240 Mg/ml) 50 ml 1X ONCE IJ Last administered on 10/29/19at 16:12; Start 10/29/19 at 15:45; Stop 10/29/19 at 15:55; Status DC Iohexol (Omnipaque 240 Mg/ml) 50 ml STK-MED ONCE .ROUTE ; Start 10/29/19 at 16:09; Stop 10/29/19 at 16:09; Status DC Active Scripts Active Vancomycin Hcl 500 Mg Vial 125 Mg JT [id number] 2 Days Oxycodone Hcl Immed.release (Oxycodone Hcl) 15 Mg Tablet 15 Mg PO PRN Q6HRS PRN 5 Days Reported Buspirone Hcl 10 Mg Tablet 1 Tab PO BIDACBL Alprazolam 0.5 Mg Tablet 1 Tab PO HS Acetaminophen 500 Mg Tablet 1 Tab PO PRN Q6HRS PRN 15 Days Ferrous Sulfate 325 Mg Tablet 65 Mg PO BID Pantoprazole Sodium (Pantoprazole Sodium) 40 Mg Tablet.dr 40 Mg PO DAILYAC Trazodone Hcl 50 Mg Tablet 1 Tab PO QHS Gabapentin (Gabapentin) 100 Mg Capsule 100 Mg PO TID Vitals/I & O Vital Sign - Last 24 Hours 10/30/19 10/30/19 10/30/19 10/30/19 14:32 17:32 18:32 19:33 Temp 98.4 98.5 98.4 98.5 Pulse 95 75 Resp 18 20 22 B/P (MAP) 94/61 (72) 115/68 (84) Pulse Ox 99 94 100 O2 Delivery Room Air Room Air Room Air Room Air 10/30/19 10/30/19 10/30/19 10/30/19 20:00 20:29 20:49 20:59 Pulse 75 Resp 20 20 B/P (MAP) 115/68 O2 Delivery Room Air Room Air 10/30/19 10/31/19 10/31/19 10/31/19 23:00 00:35 01:05 04:00 Temp 98.4 98.2 98.4 98.2 Pulse 86 89 Resp 17 20 18 15 B/P (MAP) 91/65 (74) 99/65 (76) Pulse Ox 94 94 94 100 O2 Delivery Room Air Room Air Room Air Room Air 10/31/19 10/31/19 10/31/19 10/31/19 07:00 07:11 07:40 08:00 Temp 97.5 97.5 Pulse 98 Resp 15 20 B/P (MAP) 99/67 (78) Pulse Ox 97 97 O2 Delivery Room Air Room Air Room Air 10/31/19 10/31/19 08:37 11:00 Temp 97.7 97.7 Pulse 98 91 Resp 15 B/P (MAP) 99/67 92/63 (73) Pulse Ox 99 O2 Delivery Room Air Intake and Output 10/30/19 10/30/19 10/31/19 15:00 23:00 07:00 Intake Total 490 ml 375 ml 709 ml Output Total 150 ml 700 ml 60 ml Balance 340 ml -325 ml 649 ml Nutrition Consultation Dietary Evaluation: Recommendations by RD: Dietary education by RD, Increase Calorie Intake, Protein supplementation, Add supplement feedings Comments: REC liberalize diet to regular to honor food preferences and encourage increased PO intake; discussed diet change w/RN; d/c magic cup, REC Marek BID REC MVI q day, discussed w/RN Continue w/nocturnal tube feeds of Osmolite 1.2, goal rate of 60 ml/hr but ok to keep at 30 ml/hr while pt is distended and adjusting to TFs Expected Outcomes/Goals: nutritition intake to meet >75% est needs - goal ongoing Interpretation of weight loss: >7.5% in 3 months Malnutrition Findings: Food and Nutrition Intake (Sev: <50% est energy req 5days Weight Status: Appropriate Justicifation of Admission Dx: Justifications for Admission: Justification of Admission Dx: Yes Comminuty Aquired Pneumonia: Med-High Risk Pt Sepsis: Infection AZUL MENDEZ MD Oct 31, 2019 13:52
--- NOTE | 2019-10-31 14:10 | CONS ---
DATE OF CONSULTATION: 10/31/2019 REQUESTING PHYSICIAN: Dr. Leon. REASON FOR CONSULTATION: Blood culture positive and C. diff. HISTORY OF PRESENT ILLNESS: This is a 49-year-old -[place] gentleman who has had a very prolonged hospital course for the last time with pancreatitis and pancreatic necrosis, status post surgery, etc. The patient was admitted this time with diarrhea and weight loss. The patient had a relatively prolonged hospitalization here also treated for pneumonia, now he has a most recent C. diff and he has been on p.o. vancomycin for several days, but also for some reason blood culture was done on , which I could not find the fever and 1/ is positive with Gram-positive cocci in clusters. The patient is on p.o. vancomycin only right now. The patient does not have any fever. The patient denies any nausea, vomiting. Diarrhea has improved. He says other than abdominal pain he has no other complaints. 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 PAST MEDICAL HISTORY: Positive for as I mentioned, the patient had pancreatitis. He underwent pancreatic necrosectomy, gastrostomy tube placement, tracheostomy. The patient has now enterocutaneous fistula. He also has history of hypertension, gallbladder disease, gastrostomy tube was placed, anemia, weight loss. SOCIAL HISTORY: Negative for smoking, alcohol, drug use. ALLERGIES: No known drug allergies. CURRENT MEDICATIONS: Reviewed. REVIEW OF SYSTEMS: As per HPI, all other systems reviewed and are negative. PHYSICAL EXAMINATION: GENERAL: Alert, oriented, thin, cachectic gentleman, not in distress, VITAL SIGNS: Stable, afebrile. HEENT: NAD. NECK: Supple. No JVP, no lymphadenopathy. LUNGS: Clear. HEART: S1, S2 regular. ABDOMEN: Soft, nontender. No organomegaly. Fistula is in place and GJ tube is in place. EXTREMITIES: The patient does have edema of the legs. No cyanosis. SKIN: Unremarkable. NEUROLOGIC: The patient is alert, awake and appropriate. No focal neurologic deficit. LABORATORY DATA: His white count is 11.2, hemoglobin 8.1, platelets are normal. BUN and creatinine is normal. His liver functions are normal. Albumin is 1.1. Stool for C. diff positive on 10/23/2019 and the blood culture as I mentioned. CT of the abdomen and pelvis done a few days ago reviewed, still has a necrotic pancreas which is decreased in size. There is [id number] increased size of the collection extending from pancreatic tail to the left subdiaphragmatic region, moderate quantity of ascites, left posterior basilar loculated pleural effusion with adjacent atelectasis, diffuse heterogeneous low attenuation of the liver. IMPRESSION: 1. Clostridium difficile colitis. 2. Blood culture / gram-positive cocci in clusters and there not even was fever, most likely to be contaminant, but the final identification is not done yet and I did discuss with the lab, it is now going to be available today. 3. Pancreatitis with pancreatic necrosis, status post pancreatic necrosectomy. 4. Loculated fluid in the lung, question pneumonia, which apparently has been treated now. 5. Debility and malnutrition. 6. Weight loss. 7. Very low albumin. 8. Enterocutaneous fistula. RECOMMENDATIONS: Continue p.o. vancomycin. The patient needs to have a followup on this blood culture, most likely to be contaminant, but if it is Staph aureus, then the patient needs aggressive treatment. If the patient is discharged today which can be though the hospitalist will have to follow up on the blood culture and if it is Staph aureus, then he has to come back. Since I am not going to be here tomorrow or the other option is to wait for 1 more day. This was discussed with the patient and the patient's RN. Rest of the abdominal and may be loculated fluid treatment as per Surgery. Thank you very much, Dr. Leon, for giving me the opportunity to participate in this patient's care. KRISTIAN GOODMAN MD DR: RUPALI/justyn JOB#: [id number] / [id number]
[2019-10-31 15:00] VITALS: BP 104/68
[2019-10-31] MEDS: ENOXAPARIN 40 MG/0.4 ML SYRINGE. SQ SCH (17:18)
--- NOTE | 2019-10-31 17:30 | NUR ---
Wound Care Pt has 2 drain sites that are draining from right abdomen. Urostomy bag replaced today so pt s ready for discharge. Pt present for procedure, educated on application process. Pt assisted in removal of bag. Template left in pt room for guidance of cutting bags. Pt and both comfortable with process. WC will follow up Sunday if pt still here.
[2019-10-31 19:05] VITALS: BP 105/68
--- NOTE | 2019-10-31 20:00 | NUR ---
Pt refused lanellie sahu, states he only takes that at home if his blood sugar is higher.
--- NOTE | 2019-10-31 20:00 | NUR ---
Pt refused to do tube feeding tonight. He states he ate more today of regular diet that he has yet and is too full and bloated feeling to try tube feed tonight. I did education with him about nutrition, pt verbalized understanding and still wants to refuse tube feeding.
[2019-10-31] MEDS: INSULIN GLARGINE SYRINGE. SQ SCH (21:00)
[2019-10-31] MEDS: LIDOCAINE (700MG/PATCH) PATCH. TD SCH (21:00)
[2019-10-31] MEDS: PSYLLIUM HUSK (SUGAR FREE) 1 PKT PACKET PO SCH (21:53)
[2019-10-31] MEDS: traZODone 50 MG TABLET. PO SCH (21:53)
[2019-10-31] MEDS: MIRTAZAPINE 15 MG TABLET PO SCH (22:01)
[2019-10-31 23:02] VITALS: BP 91/60
[2019-11-01 03:00] VITALS: BP 101/73
[2019-11-01] MEDS: oxyCODONE IR 5 MG TABLET PO PRN ×3 (03:30→15:09)
[2019-11-01 07:00] VITALS: BP 92/62
[2019-11-01] MEDS: INSULIN LISPRO 300 UNITS/3 ML VIAL. SQ SCH ×2 (07:30→11:30)
[2019-11-01] MEDS: LACTOBACILLUS RHAMNOSUS GG 1 CAPSULE. PO SCH (08:58)
[2019-11-01] MEDS: LIDOCAINE (700MG/PATCH) PATCH. TD SCH (08:58)
[2019-11-01] MEDS: PANTOPRAZOLE 40 MG TABLET.DR. PO SCH (08:58)
[2019-11-01] MEDS: FERROUS SULFATE 325 MG TABLET. PO SCH (08:58)
[2019-11-01] MEDS: PATCH REMOVAL. MC SCH (09:00)
[2019-11-01] MEDS: MORPHINE SULFATE 4 MG/ML VIAL. IV PRN ×2 (09:01→13:17)
[2019-11-01] MEDS: DICLOFENAC SODIUM 1% TOPICAL GEL 100GM TUBE. TP SCH (09:04)
[2019-11-01] MEDS: ONDANSETRON PF 4 MG/2 ML VIAL. IV PRN ×2 (09:11→13:27)
--- NOTE | 2019-11-01 09:30 | NUR ---
Pt has lidoderm patch scheduled for QHS. Pt requesting lidoderm patch this AM, stating he did not take it last night.
[2019-11-01] MEDS: VANCOMYCIN 125 MG/2.5 ML ORAL SOLUTION. JT SCH ×2 (10:23→15:09)
[2019-11-01 11:00] VITALS: BP 97/62
--- NOTE | 2019-11-01 12:22 | PDOC ---
PROGRESS NOTES Chief Complaint Chief Complaint A/P: RUQ abdominal pain - with recent h/o gallstone pancreatitis,t GI and general surgery following, well known to both services. CT abdomen/pelvis with significant ascites Leukocytosis - improved C diff Diarrhea: on PO vanc H/o recent Severe pancreatitis s/p ex-lap with pancreatic necrosectomy, cholecystostomy tube placement, gastrostomy tube placement, tracheostomy placement, 5 drains, 1.5L ascites drained - likely gallstone pancreatitis Status post tracheostomy - reversed, recovered Hyponatremia - will restart fluids Severe protein calorie malnutrition - would restart G-tube feeds if ok with general surgery, loan representative following. Physician deconditioning - PT OT Hypocalcemia Hepatitis B LLL small effusion - still present. Hyperglycemia - cont insulin GPC in clusters 1/ bottles likely contaminant FEN - General diet PPX - lovenox FULL CODE History of Present Illness History of Present Illness Mr Mata is a 49yo M w/ PMHx pancreatitis s/p ex-lap with pancreatic necrosectomy, gastrostomy tube placement, s/p tracheostomy, hepatitis B who returns to the hospital with his from home c/o diarrhea and RUQ pain that began on 10/21/2019. He was hospitalized for what was ultimately diagnosed as gallstone pancreatitis 06/11/2019-07/22/2019 [underwent hemodialysis for renal failure, stopped 07/04/2019, on 06/22/2019 is s/p ex-lap with pancreatic necrosectomy, cholecystostomy tube placement, gastrostomy tube placement, 5 drains, 1.5L ascites drained, and s/p tracheostomy at that time] and discharged to [facility] for further recovery. He reports he has been recovering at home with his . Has been off antibiotics since 07/31/2019. He has been short of breath but that is no different than it has been for the past 2 months. No cough no recent sick contacts. He is lost 60 pounds since prior to his May hospitalization. Labs: WBC 19.4, Hb 8.6, platelets 456, NA 131, K4.6, BUN 17, CR 0.9, glucose 130 , lactic acid 2.2, albumin 1.8, alkaline phosphatase 283, calcium 7.9 lipase normal. CXR interpreted as atelectasis versus left lower lobe infiltrate, was dosed with Levaquin in ED. BP 98/54. Admitted for further care. Plan: j tube replaced by IR. called due to GPC in 1/ bottles. likely contaminant. consult ID. ID to call patient with results okay to dc today continue PO vanc for c diff. hold BP meds given low BP noted swelling around penile shaft. no pain. likely due to edema. needs urology follow up Cont PO vancomycin for total of 10 days hold metformin at DC. a1c 7%. SSI for now Vitals Vitals Vital Signs Date Time Temp Pulse Resp B/P (MAP) Pulse Ox O2 Delivery O2 Flow Rate FiO2 11/01/19 11:00 97.6 99 16 97/62 (74) 98 Room Air 97.6 Physical Exam General: Alert, Oriented X3, Cooperative Heart: Regular rate, Normal S1, Normal S2 Lungs: Clear Abdomen: Other (distened, drainage from old drain sites ) Extremities: No clubbing, No cyanosis, No edema, Normal pulses, No tenderness/swelling Skin: No rashes, No breakdown, No significant lesion Labs LABS Laboratory Tests Test 10/31/19 16:54 10/31/19 20:51 11/01/19 07:24 11/01/19 12:10 Glucose (Fingerstick) 82 mg/dL (70-99) 134 mg/dL (70-99) 81 mg/dL (70-99) 125 mg/dL (70-99) Assessment and Plan Assessmemt and Plan Problems Medical Problems: (1) Pneumonia Status: Acute (2) Sepsis Status: Acute Comment Review of Relevant I have reviewed the following items alexandra (where applicable) has been applied. Labs Laboratory Tests Test 10/30/19 17:13 10/30/19 18:02 10/30/19 19:56 10/31/19 07:46 Glucose (Fingerstick) 53 mg/dL (70-99) 83 mg/dL (70-99) 113 mg/dL (70-99) 100 mg/dL (70-99) Test 10/31/19 08:25 10/31/19 11:55 10/31/19 16:54 10/31/19 20:51 White Blood Count 11.2 x10^3/uL (4.0-11.0) Red Blood Count 3.05 x10^6/uL (4.30-5.70) Hemoglobin 8.1 g/dL (13.0-17.5) Hematocrit 24.8 % (39.0-53.0) Mean Corpuscular Volume 81 fL (79-100) Mean Corpuscular Hemoglobin 27 pg (25-35) Mean Corpuscular Hemoglobin Concent 33 g/dL (31-37) Red Cell Distribution Width 21.5 % (11.5-14.5) Platelet Count 327 x10^3/uL (140-400) Neutrophils (%) (Auto) 83 % (31-73) Lymphocytes (%) (Auto) 7 % (24-48) Monocytes (%) (Auto) 10 % (0-9) Eosinophils (%) (Auto) 0 % (0-3) Basophils (%) (Auto) 0 % (0-3) Neutrophils # (Auto) 9.3 x10^3/uL (1.8-7.7) Lymphocytes # (Auto) 0.8 x10^3/uL (1.0-4.8) Monocytes # (Auto) 1.1 x10^3/uL (0.0-1.1) Eosinophils # (Auto) 0.0 x10^3/uL (0.0-0.7) Basophils # (Auto) 0.0 x10^3/uL (0.0-0.2) Sodium Level 131 mmol/L (136-145) Potassium Level 4.2 mmol/L (3.5-5.1) Chloride Level 100 mmol/L (98-107) Carbon Dioxide Level 26 mmol/L (21-32) Anion Gap 5 (6-14) Blood Urea Nitrogen 12 mg/dL (8-26) Creatinine 0.8 mg/dL (0.7-1.3) Estimated GFR (Cockcroft-Gault) 124.3 BUN/Creatinine Ratio 15 (6-20) Glucose Level 100 mg/dL (70-99) Calcium Level 7.1 mg/dL (8.5-10.1) Total Bilirubin 0.6 mg/dL (0.2-1.0) Direct Bilirubin 0.3 mg/dL (0.0-0.2) Aspartate Amino Transf (AST/SGOT) 19 U/L (15-37) Alanine Aminotransferase (ALT/SGPT) 13 U/L (16-63) Alkaline Phosphatase 431 U/L (46-116) Total Protein 6.1 g/dL (6.4-8.2) Albumin 1.1 g/dL (3.4-5.0) Albumin/Globulin Ratio 0.2 (1.0-1.7) Glucose (Fingerstick) 136 mg/dL (70-99) 82 mg/dL (70-99) 134 mg/dL (70-99) Test 11/01/19 07:24 11/01/19 12:10 Glucose (Fingerstick) 81 mg/dL (70-99) 125 mg/dL (70-99) Laboratory Tests Test 10/31/19 16:54 10/31/19 20:51 11/01/19 07:24 11/01/19 12:10 Glucose (Fingerstick) 82 mg/dL (70-99) 134 mg/dL (70-99) 81 mg/dL (70-99) 125 mg/dL (70-99) Microbiology 10/29/19 Blood Culture - Final, Complete Medications Current Medications Sodium Chloride 1,000 ml @ 1,000 mls/hr 1X ONCE IV Last administered on 10/21/19at 18:18; Start 10/21/19 at 18:00; Stop 10/21/19 at 18:59; Status DC Levofloxacin/ Dextrose 150 ml @ 100 mls/hr 1X ONCE IV Last administered on 10/21/19at 19:58; Start 10/21/19 at 19:45; Stop 10/21/19 at 21:14; Status DC Ondansetron HCl (Zofran) 4 mg PRN Q8HRS PRN IV NAUSEA/VOMITING; Start 10/21/19 at 20:30; Stop 10/22/19 at 07:58; Status DC Morphine Sulfate (Morphine Sulfate) 2 mg PRN Q2HR PRN IV PAIN; Start 10/21/19 at 20:30; Stop 10/22/19 at 07:58; Status DC Oxycodone HCl (Roxicodone) 15 mg PRN Q6HRS PRN PO PAIN Last administered on 10/22/19at 05:46; Start 10/21/19 at 21:00; Stop 10/22/19 at 11:30; Status DC Sodium Chloride 1,000 ml @ 1,000 mls/hr 1X ONCE IV Last administered on 10/21/19at 22:18; Start 10/21/19 at 22:30; Stop 10/21/19 at 23:29; Status DC Alprazolam (Xanax) 0.5 mg 1X ONCE PO Last administered on 10/21/19 23:22; Start 10/21/19 at 23:30; Stop 10/21/19 at 23:31; Status DC Trazodone HCl (Desyrel) 50 mg 1X ONCE PO Last administered on 10/21/19 23:22; Start 10/21/19 at 23:30; Stop 10/21/19 at 23:31; Status DC Morphine Sulfate (Morphine Sulfate) 2 mg PRN Q4HRS PRN IV MODERATE PAIN Last administered on 10/24/19 00:28; Start 10/22/19 at 08:00; Stop 10/24/19 at 02:44; Status DC Ondansetron HCl (Zofran) 4 mg PRN Q4HRS PRN IV NAUSEA/VOMITING Last administered on 11/01/19 09:11; Start 10/22/19 at 08:00 Acetaminophen (Tylenol) 500 mg PRN Q6HRS PRN PO MILD PAIN / TEMP > 100.3'F Last administered on 10/22/19 09:22; Start 10/22/19 at 08:00 Buspirone HCl (Buspar) 10 mg BIDACBL PO Last administered on 10/22/19 11:17; Start 10/22/19 at 11:30; Stop 10/24/19 at 11:40; Status DC Ferrous Sulfate (Feosol) 325 mg BIDWMEALS PO Last administered on 11/01/19 08:58; Start 10/22/19 at 09:00 Gabapentin (Neurontin) 100 mg TID PO Last administered on 10/22/19 21:07; Start 10/22/19 at 09:00; Stop 10/23/19 at 11:16; Status DC Pantoprazole Sodium (Protonix) 40 mg DAILYAC PO Last administered on 11/01/19 08:58; Start 10/22/19 at 08:15 Trazodone HCl (Desyrel) 50 mg QHS PO Last administered on 10/31/19at 21:53; Start 10/22/19 at 21:00 Insulin Glargine (Lantus Syringe) 5 unit QHS SQ Last administered on 10/28/19at 21:54; Start 10/22/19 at 21:00 Non-Formulary Medication (Melatonin ) 2 tab QHS PO ; Start 10/22/19 at 21:00; Status UNV Insulin Human Lispro (HumaLOG) 0-7 UNITS TIDACHC SQ Last administered on 10/30/19at 09:09; Start 10/22/19 at 11:30 Dextrose (Dextrose 50%-Water Syringe) 12.5 gm PRN Q15MIN PRN IV SEE COMMENTS; Start 10/22/19 at 08:00 Sodium Chloride 1,000 ml @ 1,000 mls/hr 1X ONCE IV Last administered on 10/22/19at 11:17; Start 10/22/19 at 10:00; Stop 10/22/19 at 10:59; Status DC Lorazepam (Ativan Inj) 1 mg PRN Q5MIN PRN IVP ANXIETY / AGITATION Last administered on 10/25/19at 18:32; Start 10/22/19 at 11:00; Stop 10/25/19 at 18:34; Status DC Psyllium Hydrophilic Mucilloid (Metamucil Fiber Packet) 1 pkt QHS PO Last administered on 10/31/19at 21:53; Start 10/22/19 at 21:00 Iohexol (Omnipaque 240 Mg/ml) 30 ml 1X ONCE PO Last administered on 10/22/19at 11:00; Start 10/22/19 at 11:00; Stop 10/22/19 at 11:01; Status DC Iohexol (Omnipaque 300 Mg/ml) 75 ml 1X ONCE IV Last administered on 10/22/19at 11:00; Start 10/22/19 at 11:00; Stop 10/22/19 at 11:01; Status DC Info (CONTRAST GIVEN -- Rx MONITORING) 1 each PRN DAILY PRN MC SEE COMMENTS; Start 10/22/19 at 11:15; Stop 10/24/19 at 11:14; Status DC Enoxaparin Sodium (Lovenox 40mg Syringe) 40 mg Q24H SQ ; Start 10/22/19 at 12:00; Stop 10/22/19 at 15:51; Status DC Oxycodone HCl (Roxicodone) 5 mg PRN Q6HRS PRN PO MODERATE PAIN 4-6 (USE 1ST) Last administered on 11/01/19at 09:11; Start 10/22/19 at 11:30 Piperacillin Sod/ Tazobactam Sod 3.375 gm/Sodium Chloride 50 ml @ 100 mls/hr Q6HRS IV Last administered on 10/24/19at 12:08; Start 10/22/19 at 16:00; Stop 10/24/19 at 16:43; Status DC Piperacillin Sod/ Tazobactam Sod (Zosyn Per Pharmacy) 1 each PRN DAILY PRN MC SEE COMMENTS; Start 10/22/19 at 16:00; Stop 10/24/19 at 17:17; Status DC Vancomycin HCl (Vancomycin Oral Solution) 125 mg [id number] Last administered on 11/01/19at 10:23; Start 10/23/19 at 17:00 Sodium Chloride 1,000 ml @ 100 mls/hr 1X ONCE IV Last administered on 10/24/19at 03:10; Start 10/24/19 at 03:00; Stop 10/24/19 at 12:59; Status DC Morphine Sulfate (Morphine Sulfate) 4 mg PRN Q3HRS PRN IV PAIN Last administered on 11/01/19at 09:01; Start 10/24/19 at 03:00 Lidocaine (Lidoderm) 1 patch DAILY TD Last administered on 10/25/19at 09:04; Start 10/24/19 at 12:00; Stop 10/25/19 at 16:18; Status DC Diclofenac Sodium (Voltaren) 1 devorah BID TP Last administered on 11/01/19at 09:04; Start 10/24/19 at 12:00 Miscellaneous (Lidoderm Patch Removal) 1 ea QHS MC Last administered on 10/25/19at 21:00; Start 10/24/19 at 21:00; Stop 10/25/19 at 22:00; Status DC Buspirone HCl (Buspar) 10 mg PRN QID PRN PO anxiety; Start 10/24/19 at 11:45 Enoxaparin Sodium (Lovenox 40mg Syringe) 40 mg Q24H SQ Last administered on 10/31/19at 17:18; Start 10/24/19 at 17:00 Furosemide (Lasix) 20 mg DAILY PO Last administered on 10/31/19at 08:34; Start 10/25/19 at 13:00; Stop 10/31/19 at 13:52; Status DC Metoprolol Tartrate (Lopressor) 25 mg BID PO Last administered on 10/31/19at 08:37; Start 10/25/19 at 13:00; Stop 10/31/19 at 13:52; Status DC Phenyleph/Shark Oil/Min Oil/Petrol (Preparation H) 1 devorah PRN QID PRN RC RECTAL PAIN Last administered on 10/27/19at 09:54; Start 10/25/19 at 12:45 Lidocaine (Lidoderm) 1 patch QHS TD Last administered on 11/01/19 08:58; Start 10/26/19 at 21:00 Lactobacillus Rhamnosus (Culturelle) 1 cap BID PO Last administered on 11/01/19 08:58; Start 10/25/19 at 21:00 Miscellaneous (Lidoderm Patch Removal) 1 ea DAILY MC Last administered on 10/31/19at 09:00; Start 10/27/19 at 09:00 Mirtazapine (Remeron) 15 mg QHS PO Last administered on 10/31/19at 22:01; Start 10/27/19 at 21:00 Sodium Chloride 1,000 ml @ 75 mls/hr [id number] IV Last administered on 10/30/19at 23:20; Start 10/29/19 at 01:45; Stop 10/31/19 at 09:13; Status DC Alprazolam (Xanax) 0.25 mg PRN BID PRN PO 2nd CHOICE ANXIETY / AGITATION Last administered on 10/31/19at 00:34; Start 10/29/19 at 13:45 Iohexol (Omnipaque 240 Mg/ml) 50 ml STK-MED ONCE .ROUTE ; Start 10/29/19 at 15:25; Stop 10/29/19 at 15:25; Status DC Iohexol (Omnipaque 240 Mg/ml) 50 ml 1X ONCE IJ Last administered on 10/29/19at 16:12; Start 10/29/19 at 15:45; Stop 10/29/19 at 15:55; Status DC Iohexol (Omnipaque 240 Mg/ml) 50 ml STK-MED ONCE .ROUTE ; Start 10/29/19 at 16:09; Stop 10/29/19 at 16:09; Status DC Active Scripts Active Vancomycin Hcl 500 Mg Vial 125 Mg JT [id number] 2 Days Oxycodone Hcl Immed.release (Oxycodone Hcl) 15 Mg Tablet 15 Mg PO PRN Q6HRS PRN 5 Days Reported Buspirone Hcl 10 Mg Tablet 1 Tab PO BIDACBL Alprazolam 0.5 Mg Tablet 1 Tab PO HS Acetaminophen 500 Mg Tablet 1 Tab PO PRN Q6HRS PRN 15 Days Ferrous Sulfate 325 Mg Tablet 65 Mg PO BID Pantoprazole Sodium (Pantoprazole Sodium) 40 Mg Tablet.dr 40 Mg PO DAILYAC Trazodone Hcl 50 Mg Tablet 1 Tab PO QHS Gabapentin (Gabapentin) 100 Mg Capsule 100 Mg PO TID Vitals/I & O Vital Sign - Last 24 Hours 10/31/19 10/31/19 10/31/19 10/31/19 15:00 19:05 20:00 21:54 Temp 98.0 98.4 98.0 98.4 Pulse 94 94 Resp 20 B/P (MAP) 104/68 (80) 105/68 (80) Pulse Ox 100 99 99 O2 Delivery Room Air Room Air Room Air Room Air 10/31/19 10/31/19 11/01/19 11/01/19 22:24 23:02 03:00 03:30 Temp 97.4 98.2 97.4 98.2 Pulse 94 87 Resp 20 18 17 16 B/P (MAP) 91/60 (70) 101/73 (82) Pulse Ox 99 92 97 92 O2 Delivery Room Air Room Air Room Air Room Air 11/01/19 11/01/19 11/01/19 11/01/19 04:20 07:00 08:00 09:01 Temp 97.2 97.2 Pulse 100 Resp 18 16 B/P (MAP) 92/62 (72) Pulse Ox 98 98 O2 Delivery Room Air Room Air Room Air Room Air 11/01/19 11/01/19 11/01/19 11/01/19 09:11 10:57 10:57 11:00 Temp 97.6 97.6 Pulse 99 Resp 16 B/P (MAP) 97/62 (74) Pulse Ox 98 98 98 98 O2 Delivery Room Air Room Air Room Air Room Air Intake and Output 10/31/19 10/31/19 11/01/19 15:00 23:00 07:00 Intake Total 670 ml 200 ml 120 ml Output Total 385 ml 200 ml 200 ml Balance 285 ml 0 ml -80 ml Nutrition Consultation Dietary Evaluation: Recommendations by RD: Dietary education by RD, Increase Calorie Intake, Protein supplementation, Add supplement feedings Comments: REC liberalize diet to regular to honor food preferences and encourage increased PO intake; discussed diet change w/RN; d/c magic cup, REC Marek BID REC MVI q day, discussed w/RN Continue w/nocturnal tube feeds of Osmolite 1.2, goal rate of 60 ml/hr but ok to keep at 30 ml/hr while pt is distended and adjusting to TFs Expected Outcomes/Goals: nutritition intake to meet >75% est needs - goal ongoing Interpretation of weight loss: >7.5% in 3 months Malnutrition Findings: Food and Nutrition Intake (Sev: <50% est energy req 5days Weight Status: Appropriate Justicifation of Admission Dx: Justifications for Admission: Justification of Admission Dx: Yes Comminuty Aquired Pneumonia: Med-High Risk Pt Sepsis: Infection AZUL MENDEZ MD Nov 01, 2019 12:22
[2019-11-01 15:00] VITALS: BP 94/68
[2019-11-01] MEDS ORDERED: MIRT15TA PO (17:03)
--- NOTE | 2019-11-01 17:16 | NUR ---
Discharge Note: CHRISTOPHER NEWSOME Discharge instructions and discharge home medications reviewed with patient and spouse and a copy given. All questions have been answered and understanding verbalized. Pt script called into [facility] per physician order. Patient to go home with home health.
--- NOTE | 2019-11-03 10:49 | RAD ---
Replacement of occluded gastrojejunostomy tube October 29, 2019 Sterility: All elements of maximal sterile barrier technique including the use of a cap, mask, sterile gown, sterile gloves, large sterile sheet, appropriate hand hygiene, and 2% chlorhexidine for cutaneous antisepsis (or acceptable alternative antiseptic per current guidelines) were followed for this procedure. Consent: The procedure was explained in its entirety to the patient or the patients designated enrollment representative by a member of the treatment team, including a discussion of the risks, benefits and commonly accepted alternatives to the procedure, as well as the expected consequences of no therapy whatsoever. Discussion of the risks included, but was not limited to, those that are most frequent and those that are rare but possibly severe or life-threatening, as well as the possibility of unforeseen complications. Technique and Findings: Gastrojejunostomy tube was evaluated and found to be in acceptable position however the jejunostomy port was completely occluded. A guidewire was advanced to the gastric port into the jejunum. The pre-existing catheter was removed over the wire and replaced with an identical gastrojejunostomy tube. The new catheter was found to flush and aspirate normally. Catheter position was confirmed by administration of contrast through the small bowel. The catheter secured in place. Sterile dressings were applied. Total fluoroscopy time: 7.8 Min Dose area product: 39 Gycm2 Impression: Replacement of obstructed gastrojejunostomy catheter
== END 2019-11-01 18:00 | disposition home health service (06) | DRG 871 ==
LOC: ER 16:46 → 2 NORTH 20:30
PROVIDERS: ADMIT Internal Medicine; ATTEND Internal Medicine
PROC: 30233N1 Transfusion of Nonautologous Red Blood Cells into Peripheral Vein, Percutaneous Approach (ICD-10-PCS; principal; 2019-10-31)
DX: A41.9 Sepsis, unspecified organism (principal); E43 Unspecified severe protein-calorie malnutrition; K65.9 Peritonitis, unspecified; J18.9 Pneumonia, unspecified organism; A04.72 Enterocolitis due to Clostridium difficile, not specified as recurrent; E87.1 Hypo-osmolality and hyponatremia; J98.11 Atelectasis; B19.10 Unspecified viral hepatitis B without hepatic coma; K86.1 Other chronic pancreatitis; K63.2 Fistula of intestine; R18.8 Other ascites; J90 Pleural effusion, not elsewhere classified; K94.13 Enterostomy malfunction; K80.20 Calculus of gallbladder without cholecystitis without obstruction; K21.9 Gastro-esophageal reflux disease without esophagitis; E83.51 Hypocalcemia; R73.9 Hyperglycemia, unspecified; F17.290 Nicotine dependence, other tobacco product, uncomplicated; K86.89 Other specified diseases of pancreas; K76.0 Fatty (change of) liver, not elsewhere classified; I11.9 Hypertensive heart disease without heart failure; Z68.23 Body mass index [BMI] 23.0-23.9, adult; Z90.49 Acquired absence of other specified parts of digestive tract
CPT/HCPCS: 36415; 49452; 71045; 71260; 74177; 76700; 80048; 80053; 81001; 82150; 82248; 82533; 82962; 83036; 83540; 83550; 83605; 83690; 83880; 84145; 84443; 85007; 85014; 85018; 85025; 86850; 86900; 86901; 86920; 87040; 87205; 87493; 87505; 96361; 96365; 96366; B4087; C1769; G0238; J1650; J1815; J1956; J2060; J2270; J2405; J2543; J7030; P9016; Q9966; Q9967; 97116-GP; 97535-GO; 99285-25; G0378

== ENCOUNTER 2019-11-07 19:01 | Inpatient (IN) | payer OTHER ==
[~2019-11-07] VITALS: Ht 175.3 cm; Wt 79.0 kg
[~2019-11-07 19:01] MED LIST changes: +BUSP10TA PO; +MIRT15TA PO; +VANC500V JT
[2019-11-07 20:25] LABS: BILIRUBIN,URINE NEGATIVE (NEG); CLARITY,URINE CLEAR; COLOR,URINE AMBER; NITRITE,URINE NEGATIVE (NEG); PROTEIN,URINE 30 mg/dL (NEG-TRACE)
[2019-11-07 20:34] LABS: BACTERIA,URINE MODERATE /HPF (0-FEW); HYALINE CASTS, URINE OCCASIONAL /HPF; RBC,URINE >40 /HPF (0-2); SQUAMOUS EPITHELIAL CELL,UR FEW /LPF
--- NOTE | 2019-11-07 21:44 | PHYS DOC ---
Past Medical History Past Medical History: GERD, Pancreatitis Additional Past Medical Histor: gallstones, FABIOLA, HEP B, resp. failure- intubation/trach Additional Past Surgical Histo: trach, exp. laparotomy, gtube, jtube Smoking Status: Never Smoker Alcohol Use: None Drug Use: None General Adult EDM: Chief Complaint: LOWER EXTREMITY SWELLING HPI: HPI: Patient is a 49 year old male presents with report of 3-day history of worsening bilateral lower extremity edema. Patient reports he was previously on Lasix but was taken off secondary to becoming hypotensive. Patient had been admitted several times in the last few months. History of chronic pancreatitis. Denies fever or chills. Denies pleuritic pain. Review of Systems: Review of Systems: Constitutional: Denies fever or chills Eyes: Denies redness or eye pain HENT: Denies nasal congestion or sore throat Respiratory: Denies cough or shortness of breath Cardiovascular: Denies pleuritic chest pain or palpitations GI: Denies abdominal pain, nausea, or vomiting : Denies dysuria or hematuria Musculoskeletal: Reports bilateral lower extremity edema and pain Integument: Denies rash or skin lesions Neurologic: Denies headache, focal weakness or sensory changes Complete systems were reviewed and found to be within normal limits, except as documented in this note. Allergies: Allergies: Allergies Coded Allergies Type Severity Reaction Last Updated Verified No Known Drug Allergies 01/28/16 No Physical Exam: PE: Constitutional: Well developed, malnourished, non-toxic appearance HENT: Normocephalic, atraumatic Eyes: Conjunctiva normal, no discharge Neck: Normal range of motion, no tenderness, supple Lungs & Thorax: No respiratory distress, equal chest rise and fall Abdomen: Soft, no tenderness, PEG tube and colostomy Skin: Warm, dry, no erythema, no rash Extremities: No tenderness, ROM intact, 2+ pitting edema to bilateral lower extremities Neurologic: Alert and oriented X 3, no focal deficits noted Psychologic: Affect normal, judgment normal Current Patient Data: Labs: Laboratory Tests Test 11/07/19 20:10 Urine Collection Type Unknown Urine Color Demi Urine Clarity Clear Urine pH 7.0 (<5.0-8.0) Urine Specific [place] 1.020 (1.000-1.030) Urine Protein 30 mg/dL (NEG-TRACE) Urine Glucose (UA) Negative mg/dL (NEG) Urine Ketones (Stick) Negative mg/dL (NEG) Urine Blood Large (NEG) Urine Nitrite Negative (NEG) Urine Bilirubin Negative (NEG) Urine Urobilinogen Dipstick 1.0 mg/dL (0.2 mg/dL) Urine Leukocyte Esterase Trace (NEG) Urine RBC >40 /HPF (0-2) Urine WBC 5-10 /HPF (0-4) Urine Squamous Epithelial Cells Few /LPF Urine Bacteria Moderate /HPF (0-FEW) Urine Hyaline Casts Occasional /HPF Urine Mucus Slight /LPF Vital Signs: Vital Signs Date Time Temp Pulse Resp B/P (MAP) Pulse Ox O2 Delivery O2 Flow Rate FiO2 11/07/19 19:55 97.7 118 20 108/73 (85) 98 Room Air 97.7 EKG: EKG: @0013 Sinus tachycardia at 113bpm, NO ST elevation, QRS 122ms, QT/QTc 356/494ms, RBBB, Radiology/Procedures: Radiology/Procedures: PROCEDURE: VENOUS LOWER EXT BILATERAL Bilateral Lower Extremity Venous Doppler Ultrasound History: Reason: swelling eval for DVT-TECH NOTIFIED / Spl. Instructions: / History: Comparison: None Procedure: Color flow, duplex, spectral analysis and 2D images are obtained with and without compression in the area of the common femoral vein, superficial femoral vein - femoral vein junction, main femoral vein (superficial femoral vein) and popliteal vein. Veins of the proximal calf are also imaged. Findings: There is occlusive thrombus in the deep femoral vein on the right and partial thrombus in the common femoral vein on the right. There is occlusive thrombus in the DFV and SFV on the left. There is bilateral lower extremity soft tissue edema. Impression: Study is positive for bilateral DVT. Electronically signed by: Olayinka Mcnally III, MD (11/08/2019 12:08 AM) [facility] PROCEDURE: CHEST AP ONLY Examination: CHEST AP ONLY History: cough, low extermities swelling Comparison: 10/22/2019 CT chest abdomen pelvis with contrast. Findings: AP portable upright frontal view of the chest was obtained. Left basilar pleural effusion is present. Retrocardiac left basilar consolidation is present. Right lung field is clear. No pneumothorax. IMPRESSION: Left basilar pleural effusion and consolidation again seen. Electronically signed by: Lakhwinder Dennis MD (11/07/2019 10:46 PM) [id number] Course & Med Decision Making: Course & Med Decision Making Pertinent Labs and Imaging studies reviewed. (See chart for details) Patient presents with bilateral lower extremity edema which is worse than normal. Patient had reported concerned that he was taken off of his diuretic. Labs obtained and posted to chart. Elevated WBC and significant bandemia appreciated. UA with signs of infection. Empiric antibiotic provided. Lactic acid within normal limits. Venous Dopplers positive for acute DVTs. Lovenox provided. Patient with poor vascular access. Patient likely will required PICC line placement. PICC line consult placed. Patient requiring admission for further evaluation and treatment. Discussed with Dr. Polk (hospitalist) who is in agreement with admission. Discussed findings and plan with patient and family, who acknowledge understanding and agreement. Prudence Disclaimer: Prudence Disclaimer: This electronic medical record was generated, in whole or in part, using a voice recognition dictation system. Departure Departure Impression: Primary Impression: DVT of lower extremity, bilateral Qualified Codes: I82.403 - Acute embolism and thrombosis of unspecified deep veins of lower extremity, bilateral Additional Impressions: Bandemia UTI (urinary tract infection) Qualified Codes: N30.01 - Acute cystitis with hematuria Disposition: ADMITTED INPATIENT Admitting Physician: PATRICIA (Jam) Condition: STABLE Referrals: TK HOSKINS (PCP) Justicifation of Admission Dx: Justifications for Admission: Justification of Admission Dx: Yes Comminuty Aquired Pneumonia: Med-High Risk Pt Sepsis: Infection Comments: Bilateral LE DVTs, Bandemia, UTI Critical Care Time Critical care time was 30 minutes which includes time at bedside, spent in discussion of patient's care with specialists and/or family members, with interpretation of laboratory and/or radiological studies and is exclusive of procedures. MARIA L LUJAN DO Nov 07, 2019 21:43
[2019-11-07 22:37] LABS: BASO # 0.1 x10^3/uL (0.0-0.2); BASO % 0 % (0-3); EOS % 0 % (0-3); HEMATOCRIT 25.7 % (39.0-53.0); HEMOGLOBIN 8.4 g/dL (13.0-17.5); LYMPH % 6 % (24-48); MEAN CORPUSCULAR HEMOGLOBIN 27 pg (25-35); MEAN CORPUSCULAR HGB CONC 33 g/dL (31-37); MEAN CORPUSCULAR VOLUME 82 fL (79-100); MONO # 1.5 x10^3/uL (0.0-1.1); MONO % 9 % (0-9); NEUT # 14.5 x10^3/uL (1.8-7.7); NEUT % 85 % (31-73); PLATELET COUNT 400 x10^3/uL (140-400); RED BLOOD COUNT 3.15 x10^6/uL (4.30-5.70); RED CELL DISTRIBUTION WIDTH 20.8 % (11.5-14.5)
[2019-11-07 22:49] LABS: PROTHROMBIN TIME PATIENT 18.5 SEC (11.7-14.0)
--- NOTE | 2019-11-07 22:49 | RAD ---
Examination: CHEST AP ONLY History: cough, low extermities swelling Comparison: 10/22/2019 CT chest abdomen pelvis with contrast. Findings: AP portable upright frontal view of the chest was obtained. Left basilar pleural effusion is present. Retrocardiac left basilar consolidation is present. Right lung field is clear. No pneumothorax. IMPRESSION: Left basilar pleural effusion and consolidation again seen. Electronically signed by: Lakhwinder Dennis MD (11/07/2019 10:46 PM) [id number]
[2019-11-07 22:51] LABS: AMYLASE 19 U/L (25-115); CALCIUM 7.4 mg/dL (8.5-10.1); GFR 96.1; LIPASE 66 U/L (73-393); POTASSIUM 4.5 mmol/L (3.5-5.1)
[2019-11-07 22:57] LABS: ALBUMIN 1.3 g/dL (3.4-5.0); ALBUMIN/GLOBULIN RATIO 0.2 (1.0-1.7); TOTAL BILIRUBIN 1.2 mg/dL (0.2-1.0); TOTAL PROTEIN 7.2 g/dL (6.4-8.2)
[2019-11-07 22:58] LABS: % BANDS 29 % (0-9); % LYMPHS 2 % (24-48); % MONOS 2 % (0-10); % SEGS 67 % (35-66)
[2019-11-07 22:59] LABS: PLT ESTIMATE ADEQUATE (ADEQUATE); TOXIC GRANULATION MOD
[2019-11-07 23:02] LABS: ANISOCYTOSIS MOD; POLYCHROMASIA SLIGHT
[2019-11-07 23:07] LABS: CREATINE KINASE 46 U/L (39-308)
[2019-11-08] MEDS ORDERED: cefTRIAXone IV Push 1 GM VIAL. IVP ONE
--- NOTE | 2019-11-08 00:10 | RAD ---
Bilateral Lower Extremity Venous Doppler Ultrasound History: Reason: swelling eval for DVT-TECH NOTIFIED / Spl. Instructions: / History: Comparison: None Procedure: Color flow, duplex, spectral analysis and 2D images are obtained with and without compression in the area of the common femoral vein, superficial femoral vein - femoral vein junction, main femoral vein (superficial femoral vein) and popliteal vein. Veins of the proximal calf are also imaged. Findings: There is occlusive thrombus in the deep femoral vein on the right and partial thrombus in the common femoral vein on the right. There is occlusive thrombus in the DFV and SFV on the left. There is bilateral lower extremity soft tissue edema. Impression: Study is positive for bilateral DVT. Electronically signed by: Olayinka Mcnally III, MD (11/08/2019 12:08 AM) [facility]
[2019-11-08] MEDS ORDERED: cefTRIAXone IM 1 GM VIAL IM ONE (01:45)
[2019-11-08] MEDS ORDERED: LORazepam 0.5 MG TABLET PO ONE (03:15)
[2019-11-08 03:45] VITALS: BP 106/77
[2019-11-08] MEDS ORDERED: ACETAMINOPHEN 500 MG TABLET PO PRN (07:30)
[2019-11-08] MEDS: busPIRone 10 MG TABLET. PO SCH ×2 (07:30→10:54)
[2019-11-08 07:59] VITALS: BP 110/83
[2019-11-08] MEDS ORDERED: GABAPENTIN 100 MG CAPSULE. PO SCH (09:00)
[2019-11-08 09:29] LABS: BASO # 0.1 x10^3/uL (0.0-0.2); BASO % 0 % (0-3); EOS % 0 % (0-3); HEMATOCRIT 23.5 % (39.0-53.0); HEMOGLOBIN 7.9 g/dL (13.0-17.5); LYMPH # 0.5 x10^3/uL (1.0-4.8); LYMPH % 3 % (24-48); MEAN CORPUSCULAR HEMOGLOBIN 28 pg (25-35); MEAN CORPUSCULAR HGB CONC 34 g/dL (31-37); MEAN CORPUSCULAR VOLUME 82 fL (79-100); MONO % 6 % (0-9); NEUT # 15.4 x10^3/uL (1.8-7.7); NEUT % 91 % (31-73); PLATELET COUNT 348 x10^3/uL (140-400); RED BLOOD COUNT 2.88 x10^6/uL (4.30-5.70); RED CELL DISTRIBUTION WIDTH 20.9 % (11.5-14.5)
[2019-11-08 09:50] LABS: ALBUMIN/GLOBULIN RATIO 0.2 (1.0-1.7); CALCIUM 6.9 mg/dL (8.5-10.1); CREATININE 0.9 mg/dL (0.7-1.3); GFR 108.5; POTASSIUM 4.1 mmol/L (3.5-5.1); TOTAL BILIRUBIN 0.8 mg/dL (0.2-1.0); TOTAL PROTEIN 6.1 g/dL (6.4-8.2)
[2019-11-08] MEDS: APIXABAN 5 MG TABLET. PO SCH ×2 (10:54→20:48)
[2019-11-08] MEDS: FERROUS SULFATE 325 MG TABLET. PO SCH ×2 (10:54→17:09)
[2019-11-08] MEDS: PANTOPRAZOLE 40 MG TABLET.DR. PO SCH (10:54)
[2019-11-08 11:25] VITALS: BP 118/90
[2019-11-08] MEDS: VANCOMYCIN 125 MG/2.5 ML ORAL SOLUTION. PO SCH ×2 (17:30→20:48)
[2019-11-08 19:00] VITALS: BP 118/86
[2019-11-08] MEDS: ALPRAZolam 0.5 MG TABLET PO SCH (20:48)
--- NOTE | 2019-11-08 20:57 | PDOC1 ---
History and Physical Date of Admission Date of Admission November 08, 2019 Identification/Chief Complaint Problems: (1) Nausea and vomiting (2) Bandemia Source Source: Chart review, Patient History of Present Illness History of Present Illness Limited H&P since patient is not a very good historian. Patient is a 49-year-old gentleman with past medical history of GERD pancreatitis history of DVT who comes to the emergency department complaining of bilateral leg swelling. At the time of my visit the patient is lying in bed in no apparent distress, he seems to be had of hearing, he is not offering many details about the story and we were asked to admit due to results of Doppler ultrasound revealing bilateral DVTs. Apparently the patient had been on Coumadin before it is unclear at this point if the patient has been taking Coumadin prior to this visit to the emergency department. Patient denies any headaches no blurred vision no strokelike symptoms no chest pain palpitations no shortness of breath has been reported. Patient denies abdominal pain no nausea vomiting or diarrhea. The patient certainly complains of discomfort over his bilateral extremities due to the edema. No other complaints were voiced, plan of care has been explained detail to the patient. Later in the day visited with nursing staff letting her concerned that patient may be having excessive sedation from his home medications that include trazodone and Remeron. Will place this on hold I have discussed this with nursing staff Review of his last hospital stay more or less a week ago is as follows: Brief Hospital Course Mr Newsome is a 49yo M w/ PMHx pancreatitis s/p ex-lap with pancreatic necrosectomy, gastrostomy tube placement, s/p tracheostomy, hepatitis B who returns to the hospital with his from home c/o diarrhea and RUQ pain that began on 10/21/2019. He was hospitalized for what was ultimately diagnosed as gallstone pancreatitis 06/11/2019-07/22/2019 [underwent hemodialysis for renal failure, stopped 07/04/2019, on 06/22/2019 is s/p ex-lap with pancreatic necrosectomy, cholecystostomy tube placement, gastrostomy tube placement, 5 drains, 1.5L ascites drained, and s/p tracheostomy at that time] and discharged to [facility] for further recovery. He reports he has been recovering at home with his . Has been off antibiotics since 07/31/2019. He has been short of breath but that is no different than it has been for the past 2 months. No cough no recent sick contacts. He is lost 60 pounds since prior to his May hospitalization. Labs: WBC 19.4, Hb 8.6, platelets 456, NA 131, K4.6, BUN 17, CR 0.9, glucose 130, lactic acid 2.2, albumin 1.8, alkaline phosphatase 283, calcium 7.9 lipase normal. CXR interpreted as atelectasis versus left lower lobe infiltrate, was dosed with Levaquin in ED. BP 98/54. Admitted for further care. A/P: RUQ abdominal pain - with recent h/o gallstone pancreatitis,t GI and general surgery following, well known to both services. CT abdomen/pelvis with significant ascites Leukocytosis - improved C diff Diarrhea: on PO vanc. to complete 10 days at time of discharge. needs 2 more days H/o recent Severe pancreatitis s/p ex-lap with pancreatic necrosectomy, cholecystostomy tube placement, gastrostomy tube placement, tracheostomy place ment, 5 drains, 1.5L ascites drained - likely gallstone pancreatitis. given script for oxycodone at dischaarge Status post tracheostomy - reversed, recovered Hyponatremia - resolved Severe protein calorie malnutrition - started G-tube feeds Physician deconditioning - PT OT followed Hypocalcemia Hepatitis B LLL small effusion - still present. Hyperglycemia - cont insulin. no insulin at dc. Plan at discharge j tube replaced by IR during hospitalization but tolerating TFs at night well. Cont vancomycin for two more days at discharge to complete 10 day course noted swelling around penis shaft. likely due to edema and fluids given. will refer to Urology for follow up. needs to follow up with gen sx following discharge. hold lasix BB and metformin at dc. a1c 7%. can restart lasix and BB if BP improves. BP low normal at discharge ER history as follows: Emergency Room Patient: CHRISTOPHER NEWSOME Acct:[id number] Unit: [id number] : 1970 Loc: [address] [place] [address] Room/ Bed: [facility] Age/Sex: 49 / M ADM Status: ADM IN ADM Date: 11/08/19 Past Medical History Past Medical History: GERD, Pancreatitis Additional Past Medical Histor: gallstones, FABIOLA, HEP B, resp. failure- intubation/trach Additional Past Surgical Histo: trach, exp. laparotomy, gtube, jtube Smoking Status: Never Smoker Alcohol Use: None Drug Use: None General Adult EDM: Chief Complaint: LOWER EXTREMITY SWELLING HPI: HPI: Patient is a 49 year old male presents with report of 3-day history of worsening bilateral lower extremity edema. Patient reports he was previously on Lasix but was taken off secondary to becoming hypotensive. Patient had been admitted several times in the last few months. History of chronic pancreatitis. Denies fever or chills. Denies pleuritic pain Past Medical History Past Medical History History of DVT GI: GERD Hepatobiliary: Hep A/B/C, Other Past Surgical History Past Surgical History: Other Family History Family History: Family History Unknown, Other Social History ALCOHOL: none Drugs: None Current Medications Current Medications Current Medications Medications (Trade) Dose Ordered Sig/Jesse Start Time Stop Time Status Last Admin Dose Admin Acetaminophen (Tylenol) 500 mg PRN Q6HRS PRN 11/08/19 07:30 Alprazolam (Xanax) 0.5 mg HS 11/08/19 21:00 Apixaban (Eliquis) 5 mg BID 11/15/19 09:00 Buspirone HCl (Buspar) 10 mg BIDACBL 11/08/19 07:30 11/08/19 11:46 DC 11/08/19 10:54 10 MG Ceftriaxone Sodium (Rocephin Im) 1 gm 1X ONCE 11/08/19 01:45 11/08/19 01:46 DC 11/08/19 02:42 1 GM Ceftriaxone Sodium (Rocephin) 1 gm 1X ONCE 11/08/19 00:00 11/08/19 01:23 DC Enoxaparin Sodium (Lovenox 80mg Syringe) 80 mg 1X ONCE 11/08/19 00:00 11/08/19 00:01 DC 11/08/19 02:43 80 MG Ferrous Sulfate (Feosol) 325 mg BIDWMEALS 11/08/19 08:00 11/08/19 17:09 325 MG Gabapentin (Neurontin) 100 mg TID 11/08/19 09:00 11/08/19 11:46 DC 11/08/19 10:54 100 MG Info (Anti-Coagulation Monitoring By Pharmacy) 1 each PRN DAILY PRN 11/08/19 07:45 Lorazepam (Ativan) 0.5 mg 1X ONCE 11/08/19 03:15 11/08/19 03:16 DC 11/08/19 03:28 0.5 MG Mirtazapine (Remeron) 15 mg QHS 11/08/19 21:00 11/08/19 17:19 DC Oxycodone HCl (Roxicodone) 15 mg PRN Q6HRS PRN 11/08/19 07:45 Pantoprazole Sodium (Protonix) 40 mg DAILYAC 11/08/19 08:00 11/08/19 10:54 40 MG Trazodone HCl (Desyrel) 50 mg QHS 11/08/19 21:00 11/08/19 17:19 DC Vancomycin HCl (Vancomycin Oral Solution) 125 mg [id number] 11/08/19 17:30 Allergies Allergies Allergies Coded Allergies Type Severity Reaction Last Updated Verified No Known Drug Allergies 01/28/16 No ROS Review of System CONSTITUTIONAL: No fever or chills EYES: No recent changes SKIN: No rash or itching CARDIOVASCULAR: No chest pain, syncope, palpitations, or edema RESPIRATORY: No SOB or cough GASTROINTESTINAL: No nausea, vomiting or abdominal pain NEUROLOGICAL: No headaches or weakness ENDOCRINE: No cold or heat intolerance GENITOURINARY: No urgency or frequency of urination MUSCULOSKELETAL: No back pain or joint pain LYMPHATICS: No enlarged lymph nodes PSYCHIATRIC: No anxiety or depression Unreliable since the patient is not a very good historian Physical Exam Physical Exam GEN.: Cachectic looking no apparent distress. Alert and oriented. HEENT: Head is normocephalic, atraumatic NECK: Supple. LUNGS: Clear to auscultation. HEART: RRR, S1, S2 present. Peripheral pulses intact ABDOMEN: Soft, nontender. Positive bowel sounds. EXTREMITIES: Without any cyanosis. 3+ edema NEUROLOGIC: Cranial nerves II to XII intact no motor or sensory deficits appreciated PSYCHIATRIC: Flat affect SKIN: No ulcerations Vitals Vitals Vital Signs Date Time Temp Pulse Resp B/P (MAP) Pulse Ox O2 Delivery O2 Flow Rate FiO2 11/08/19 19:00 97.8 128 20 118/86 (97) 100 Room Air 97.8 Labs Labs Laboratory Tests Test 11/07/19 20:10 11/07/19 22:22 7/25/20 09:15 11/08/19 11:16 Urine Collection Type Unknown Urine Color Demi Urine Clarity Clear Urine pH 7.0 (<5.0-8.0) Urine Specific [place] 1.020 (1.000-1.030) Urine Protein 30 mg/dL (NEG-TRACE) Urine Glucose (UA) Negative mg/dL (NEG) Urine Ketones (Stick) Negative mg/dL (NEG) Urine Blood Large (NEG) Urine Nitrite Negative (NEG) Urine Bilirubin Negative (NEG) Urine Urobilinogen Dipstick 1.0 mg/dL (0.2 mg/dL) Urine Leukocyte Esterase Trace (NEG) Urine RBC >40 /HPF (0-2) Urine WBC 5-10 /HPF (0-4) Urine Squamous Epithelial Cells Few /LPF Urine Bacteria Moderate /HPF (0-FEW) Urine Hyaline Casts Occasional /HPF Urine Mucus Slight /LPF White Blood Count 17.0 x10^3/uL (4.0-11.0) 17.0 x10^3/uL (4.0-11.0) Red Blood Count 3.15 x10^6/uL (4.30-5.70) 2.88 x10^6/uL (4.30-5.70) Hemoglobin 8.4 g/dL (13.0-17.5) 7.9 g/dL (13.0-17.5) Hematocrit 25.7 % (39.0-53.0) 23.5 % (39.0-53.0) Mean Corpuscular Volume 82 fL (79-100) 82 fL (79-100) Mean Corpuscular Hemoglobin 27 pg (25-35) 28 pg (25-35) Mean Corpuscular Hemoglobin Concent 33 g/dL (31-37) 34 g/dL (31-37) Red Cell Distribution Width 20.8 % (11.5-14.5) 20.9 % (11.5-14.5) Platelet Count 400 x10^3/uL (140-400) 348 x10^3/uL (140-400) Neutrophils (%) (Auto) 85 % (31-73) 91 % (31-73) Lymphocytes (%) (Auto) 6 % (24-48) 3 % (24-48) Monocytes (%) (Auto) 9 % (0-9) 6 % (0-9) Eosinophils (%) (Auto) 0 % (0-3) 0 % (0-3) Basophils (%) (Auto) 0 % (0-3) 0 % (0-3) Neutrophils # (Auto) 14.5 x10^3/uL (1.8-7.7) 15.4 x10^3/uL (1.8-7.7) Lymphocytes # (Auto) 1.0 x10^3/uL (1.0-4.8) 0.5 x10^3/uL (1.0-4.8) Monocytes # (Auto) 1.5 x10^3/uL (0.0-1.1) 1.0 x10^3/uL (0.0-1.1) Eosinophils # (Auto) 0.0 x10^3/uL (0.0-0.7) 0.0 x10^3/uL (0.0-0.7) Basophils # (Auto) 0.1 x10^3/uL (0.0-0.2) 0.1 x10^3/uL (0.0-0.2) Segmented Neutrophils % 67 % (35-66) Band Neutrophils % 29 % (0-9) Lymphocytes % 2 % (24-48) Monocytes % 2 % (0-10) Toxic Granulation Mod Platelet Estimate Adequate (ADEQUATE) Polychromasia Slight Anisocytosis Mod Prothrombin Time 18.5 SEC (11.7-14.0) Prothromb Time International Ratio 1.6 (0.8-1.1) Activated Partial Thromboplast Time 42 SEC (24-38) Sodium Level 134 mmol/L (136-145) 136 mmol/L (136-145) Potassium Level 4.5 mmol/L (3.5-5.1) 4.1 mmol/L (3.5-5.1) Chloride Level 102 mmol/L (98-107) 102 mmol/L (98-107) Carbon Dioxide Level 31 mmol/L (21-32) 31 mmol/L (21-32) Anion Gap 1 (6-14) 3 (6-14) Blood Urea Nitrogen 19 mg/dL (8-26) 20 mg/dL (8-26) Creatinine 1.0 mg/dL (0.7-1.3) 0.9 mg/dL (0.7-1.3) Estimated GFR (Cockcroft-Gault) 96.1 108.5 BUN/Creatinine Ratio 19 (6-20) 22 (6-20) Glucose Level 83 mg/dL (70-99) 92 mg/dL (70-99) Lactic Acid Level 1.7 mmol/L (0.4-2.0) 1.8 mmol/L (0.4-2.0) Calcium Level 7.4 mg/dL (8.5-10.1) 6.9 mg/dL (8.5-10.1) Magnesium Level 2.0 mg/dL (1.8-2.4) Total Bilirubin 1.2 mg/dL (0.2-1.0) 0.8 mg/dL (0.2-1.0) Aspartate Amino Transf (AST/SGOT) 24 U/L (15-37) 22 U/L (15-37) Alanine Aminotransferase (ALT/SGPT) 31 U/L (16-63) 24 U/L (16-63) Alkaline Phosphatase 580 U/L (46-116) 490 U/L (46-116) Creatine Kinase 46 U/L (39-308) Creatine Kinase MB (Mass) < 0.5 ng/mL (0.0-3.6) Creatine Kinase MB Relative Index % (0-4) Troponin I Quantitative < 0.017 ng/mL (0.000-0.055) Total Protein 7.2 g/dL (6.4-8.2) 6.1 g/dL (6.4-8.2) Albumin 1.3 g/dL (3.4-5.0) 1.0 g/dL (3.4-5.0) Albumin/Globulin Ratio 0.2 (1.0-1.7) 0.2 (1.0-1.7) Amylase Level 19 U/L (25-115) Lipase 66 U/L (73-393) Procalcitonin 0.68 ng/mL (0.00-0.10) Glucose (Fingerstick) 73 mg/dL (70-99) Test 11/08/19 17:12 11/08/19 20:15 Glucose (Fingerstick) 109 mg/dL (70-99) 113 mg/dL (70-99) Laboratory Tests Test 11/07/19 22:22 11/08/19 09:15 11/08/19 11:16 11/08/19 17:12 White Blood Count 17.0 x10^3/uL (4.0-11.0) 17.0 x10^3/uL (4.0-11.0) Red Blood Count 3.15 x10^6/uL (4.30-5.70) 2.88 x10^6/uL (4.30-5.70) Hemoglobin 8.4 g/dL (13.0-17.5) 7.9 g/dL (13.0-17.5) Hematocrit 25.7 % (39.0-53.0) 23.5 % (39.0-53.0) Mean Corpuscular Volume 82 fL (79-100) 82 fL (79-100) Mean Corpuscular Hemoglobin 27 pg (25-35) 28 pg (25-35) Mean Corpuscular Hemoglobin Concent 33 g/dL (31-37) 34 g/dL (31-37) Red Cell Distribution Width 20.8 % (11.5-14.5) 20.9 % (11.5-14.5) Platelet Count 400 x10^3/uL (140-400) 348 x10^3/uL (140-400) Neutrophils (%) (Auto) 85 % (31-73) 91 % (31-73) Lymphocytes (%) (Auto) 6 % (24-48) 3 % (24-48) Monocytes (%) (Auto) 9 % (0-9) 6 % (0-9) Eosinophils (%) (Auto) 0 % (0-3) 0 % (0-3) Basophils (%) (Auto) 0 % (0-3) 0 % (0-3) Neutrophils # (Auto) 14.5 x10^3/uL (1.8-7.7) 15.4 x10^3/uL (1.8-7.7) Lymphocytes # (Auto) 1.0 x10^3/uL (1.0-4.8) 0.5 x10^3/uL (1.0-4.8) Monocytes # (Auto) 1.5 x10^3/uL (0.0-1.1) 1.0 x10^3/uL (0.0-1.1) Eosinophils # (Auto) 0.0 x10^3/uL (0.0-0.7) 0.0 x10^3/uL (0.0-0.7) Basophils # (Auto) 0.1 x10^3/uL (0.0-0.2) 0.1 x10^3/uL (0.0-0.2) Segmented Neutrophils % 67 % (35-66) Band Neutrophils % 29 % (0-9) Lymphocytes % 2 % (24-48) Monocytes % 2 % (0-10) Toxic Granulation Mod Platelet Estimate Adequate (ADEQUATE) Polychromasia Slight Anisocytosis Mod Prothrombin Time 18.5 SEC (11.7-14.0) Prothromb Time International Ratio 1.6 (0.8-1.1) Activated Partial Thromboplast Time 42 SEC (24-38) Sodium Level 134 mmol/L (136-145) 136 mmol/L (136-145) Potassium Level 4.5 mmol/L (3.5-5.1) 4.1 mmol/L (3.5-5.1) Chloride Level 102 mmol/L (98-107) 102 mmol/L (98-107) Carbon Dioxide Level 31 mmol/L (21-32) 31 mmol/L (21-32) Anion Gap 1 (6-14) 3 (6-14) Blood Urea Nitrogen 19 mg/dL (8-26) 20 mg/dL (8-26) Creatinine 1.0 mg/dL (0.7-1.3) 0.9 mg/dL (0.7-1.3) Estimated GFR (Cockcroft-Gault) 96.1 108.5 BUN/Creatinine Ratio 19 (6-20) 22 (6-20) Glucose Level 83 mg/dL (70-99) 92 mg/dL (70-99) Lactic Acid Level 1.7 mmol/L (0.4-2.0) 1.8 mmol/L (0.4-2.0) Calcium Level 7.4 mg/dL (8.5-10.1) 6.9 mg/dL (8.5-10.1) Magnesium Level 2.0 mg/dL (1.8-2.4) Total Bilirubin 1.2 mg/dL (0.2-1.0) 0.8 mg/dL (0.2-1.0) Aspartate Amino Transf (AST/SGOT) 24 U/L (15-37) 22 U/L (15-37) Alanine Aminotransferase (ALT/SGPT) 31 U/L (16-63) 24 U/L (16-63) Alkaline Phosphatase 580 U/L (46-116) 490 U/L (46-116) Creatine Kinase 46 U/L (39-308) Creatine Kinase MB (Mass) < 0.5 ng/mL (0.0-3.6) Creatine Kinase MB Relative Index % (0-4) Troponin I Quantitative < 0.017 ng/mL (0.000-0.055) Total Protein 7.2 g/dL (6.4-8.2) 6.1 g/dL (6.4-8.2) Albumin 1.3 g/dL (3.4-5.0) 1.0 g/dL (3.4-5.0) Albumin/Globulin Ratio 0.2 (1.0-1.7) 0.2 (1.0-1.7) Amylase Level 19 U/L (25-115) Lipase 66 U/L (73-393) Procalcitonin 0.68 ng/mL (0.00-0.10) Glucose (Fingerstick) 73 mg/dL (70-99) 109 mg/dL (70-99) Test 11/08/19 20:15 Glucose (Fingerstick) 113 mg/dL (70-99) VTE Prophylaxis Ordered VTE Prophylaxis Devices: Yes VTE Pharmacological Prophylaxi: Yes Assessment/Plan Assessment/Plan Bilateral DVT Neutropenia and bandemia, recent C diff infection Diarrhea. Recurrent C diff? C diff Diarrhea on last hospital stay, completed a 10 day course of antibiotics. H/o recent Severe pancreatitis s/p ex-lap with pancreatic necrosectomy, cholecystostomy tube placement, gastrostomy tube placement, tracheostomy placement, 5 drains, 1.5L ascites drained - likely gallstone Status post tracheostomy - reversed, recovered Severe protein calorie malnutrition - started G-tube feeds Physician deconditioning - PT OT followed History of Hepatitis B j tube replaced by IR during last hospitalization but tolerating TFs at night well. Cont vancomycin for two more days at discharge to complete 10 day course hold lasix BB and metformin at dc. a1c 7%. Plan: will start eliquis will start oral vancomycin will consult ID for evaluation since patient may be having a recurrence of his C diff infection tube feeding may be causing diarrhea as well. will check stool pathogen PCR may be positive due to recent infection and not necessaraly a recurrent bout of C diff, will follow recommendations from lean consultant his lower extremity edema may be a consequence of his severe protein calorie malnutrition reassess in the am Justicifation of Admission Dx: Justifications for Admission: Justification of Admission Dx: Yes Comminuty Aquired Pneumonia: Med-High Risk Pt Sepsis: Infection BRENDA JONAS MD Nov 08, 2019 20:57
[2019-11-08] MEDS ORDERED: MIRTAZAPINE 15 MG TABLET PO SCH (21:00)
[2019-11-08] MEDS ORDERED: traZODone 50 MG TABLET. PO SCH (21:00)
--- NOTE | 2019-11-08 21:30 | NUR ---
Patient took Eliquis and Xanax. Gagged while taking PO Vanc and then vomited. No pills visualized in trash can. Will continue to monitor.
[2019-11-08 23:00] VITALS: BP 104/65
[2019-11-09 03:18] VITALS: BP 102/66
[2019-11-09 07:59] VITALS: BP 110/81
--- NOTE | 2019-11-09 09:56 | PDOC ---
Infectious Disease Note Vital Signs: Vital Signs Vital Signs Date Time Temp Pulse Resp B/P (MAP) Pulse Ox O2 Delivery O2 Flow Rate FiO2 11/09/19 07:59 97.8 103 20 110/81 (91) 95 Room Air 97.8 Medications: Inpatient Meds: Current Medications Medications (Trade) Dose Ordered Sig/Jesse Start Time Stop Time Status Last Admin Dose Admin Acetaminophen (Tylenol) 500 mg PRN Q6HRS PRN 11/08/19 07:30 Alprazolam (Xanax) 0.5 mg HS 11/08/19 21:00 11/08/19 20:48 0.5 MG Apixaban (Eliquis) 5 mg BID 11/15/19 09:00 Buspirone HCl (Buspar) 10 mg BIDACBL 11/08/19 07:30 11/08/19 11:46 DC 11/08/19 10:54 10 MG Ceftriaxone Sodium (Rocephin Im) 1 gm 1X ONCE 11/08/19 01:45 11/08/19 01:46 DC 11/08/19 02:42 1 GM Ceftriaxone Sodium (Rocephin) 1 gm 1X ONCE 11/08/19 00:00 11/08/19 01:23 DC Enoxaparin Sodium (Lovenox 80mg Syringe) 80 mg 1X ONCE 11/08/19 00:00 11/08/19 00:01 DC 11/08/19 02:43 80 MG Ferrous Sulfate (Feosol) 325 mg BIDWMEALS 11/08/19 08:00 11/08/19 17:09 325 MG Gabapentin (Neurontin) 100 mg TID 11/08/19 09:00 11/08/19 11:46 DC 11/08/19 10:54 100 MG Info (Anti-Coagulation Monitoring By Pharmacy) 1 each PRN DAILY PRN 11/08/19 07:45 Lorazepam (Ativan) 0.5 mg 1X ONCE 11/08/19 03:15 11/08/19 03:16 DC 11/08/19 03:28 0.5 MG Mirtazapine (Remeron) 15 mg QHS 11/08/19 21:00 11/08/19 17:19 DC Oxycodone HCl (Roxicodone) 15 mg PRN Q6HRS PRN 11/08/19 07:45 Pantoprazole Sodium (Protonix) 40 mg DAILYAC 11/08/19 08:00 11/08/19 10:54 40 MG Trazodone HCl (Desyrel) 50 mg QHS 11/08/19 21:00 11/08/19 17:19 DC Vancomycin HCl (Vancomycin Oral Solution) 125 mg [id number] 11/08/19 17:30 11/08/19 20:48 125 MG Labs: Lab Laboratory Tests Test 11/08/19 11:16 11/08/19 17:12 11/08/19 20:15 11/09/19 08:26 Glucose (Fingerstick) 73 mg/dL (70-99) 109 mg/dL (70-99) 113 mg/dL (70-99) 95 mg/dL (70-99) Objective: Assessment: Patient seen and examined ID consult dictated Plan: Plan of Care Thank you [id number] THUY GOODMAN MD Nov 09, 2019 09:56
[2019-11-09] MEDS: APIXABAN 5 MG TABLET. PO SCH ×2 (10:03→21:51)
[2019-11-09] MEDS: FERROUS SULFATE 325 MG TABLET. PO SCH ×2 (10:03→17:03)
[2019-11-09] MEDS: PANTOPRAZOLE 40 MG TABLET.DR. PO SCH (10:04)
[2019-11-09] MEDS: ANTI-COAG MONITOR BY PHARMACY. MC PRN (10:37)
[2019-11-09 13:35] VITALS: BP 117/90
[2019-11-09] MEDS: VANCOMYCIN 125 MG/2.5 ML ORAL SOLUTION. PO SCH ×3 (13:37→21:51)
--- NOTE | 2019-11-09 14:01 | CONS ---
DATE OF CONSULTATION: 11/09/2019 REFERRING PHYSICIAN: Dr. Reza. REASON FOR CONSULTATION: C. diff colitis, possible recurrence. HISTORY OF PRESENT ILLNESS: A 49-year-old male presents with complaints of worsening bilateral lower extremity edema for the last 3 days. The patient has recently been discharged this month on p.o. vancomycin for C. diff. Blood cultures were done, which were positive for Staphylococcus saccharolyticus possible contaminant, which was not treated. The patient had a CT chest, which showed left atelectatic consolidation, small left pleural effusion. He also had decreased size of the necrotic pancreas, [id number] increased size collection extending from pancreatic tail to the left subdiaphragmatic region, moderate quantity ascites. Today, the patient does not answer all the questions. He denies any headache, sore throat, nausea, vomiting. Does have loose bowel movement, complains of discomfort in the lower extremity due to edema. The patient yesterday was found to have decreased level of consciousness, which was thought to be from the sedatives which are currently on hold. His white count was elevated at 17,000, hemoglobin 8.4, platelets of 400. Procalcitonin was 0.68. Creatinine of 0.9, albumin of 1.0, lactate of 1.8. Last C. diff positive was 10/23/2019. Blood cultures were done, which are pending at this time. Chest x-ray shows left basilar pleural effusion and consolidation. Lower extremity ultrasound shows DVT. ID consult has been requested for antibiotic management. PAST MEDICAL HISTORY: Prolonged course in July with pancreatitis, pancreatic necrosis status post necrosectomy, gastrostomy tube placement, was transferred to [facility] later on discharged home. Recent admission 10/21/2019-06/02/2019, discharged on p.o. vancomycin. Enterocutaneous fistula, hypertension, anemia, weight loss. SOCIAL HISTORY: Negative for smoking, ETOH or illicit drug use. , lives with . ALLERGIES: No known drug allergies. CURRENT MEDICATIONS: Apixaban, Xanax, vancomycin 125 mg p.o. q.i.d., pantoprazole, ferrous sulfate, oxycodone, acetaminophen. The patient has been off trazodone, mirtazapine, gabapentin, buspirone. REVIEW OF SYSTEMS: Limited, but negative except for above in HPI. PHYSICAL EXAMINATION: VITAL SIGNS: Temperature 97.8, pulse 103, respiratory rate 20, blood pressure 110/81, oxygen saturation 95% on room air. GENERAL: Thin, cachectic male in no acute distress, sleepy, but arousable, oriented. HEENT: Normocephalic, atraumatic. No thrush. NECK: Supple, no lymphadenopathy. LUNGS: Decreased breath sounds at the bases, otherwise clear. HEART: S1, S2. No gallops or murmurs. ABDOMEN: Distended, soft, nontender, fistula in place, GJ tube in place. EXTREMITIES: Edema, no cyanosis. DERMATOLOGIC: Warm, dry. 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 NEUROLOGIC: Alert, awake, answers a few questions. PSYCHIATRIC: Flat affect. DERMATOLOGIC: No generalized rash. LABORATORY DATA: WBC 17, hemoglobin 7.9, hematocrit 23.5, platelets 348. Sodium 136, potassium 4.1, chloride 102, bicarbonate 31, BUN 20, creatinine 0.9, glucose 92. Lactate 1.8, calcium 6.9, alkaline phosphatase 490, otherwise LFTs normal. Albumin 1.0. C. diff 10/23/2019 positive. MICROBIOLOGY: Blood culture pending at this time. Last time blood cultures were positive 04/19 for Staph saccharolyticus. Urine culture was negative. IMAGING: Chest x-ray as above. Ultrasound of the lower extremity as above. IMPRESSION: 1. Bilateral lower extremity deep venous thrombosis. 2. Clostridium difficile colitis. 3. Leukocytosis with bandemia. 4. Left basilar pleural effusion and consolidation, chronic. 5. History of severe pancreatitis, status post exploratory laparotomy with pancreatic necrosectomy, cholecystotomy tube placement, gastrostomy tube placement, tracheostomy placement, five drains. Ascitic fluid drained status post tracheostomy recovered, history of hepatitis B during last admission in 07/2019. RECOMMENDATIONS: 1. Continue p.o. vancomycin, increase the dose of 250 p.o. q.i.d. 2. Follow up blood cultures. 3. Start zosyn 4. Consider CT Chest and or abdomen 3. Continue supportive care. Thank you, Dr. Reza, for giving me an opportunity to participate in this patient's care. We will follow along with you. Discussed with nursing staff. THUY GOODMAN MD DR: LUZ MARIA/justyn JOB#: [id number] / [id number] ISAIAS
--- NOTE | 2019-11-09 14:34 | NUR ---
Wound bag changed this afternoon, picture taken and placed in the chart.
--- NOTE | 2019-11-09 14:36 | NUR ---
Patient is a hard stick, no IV access since admission, noted PICC order by ER Physician. The patient is not receiving any IV meds currently. Spoke to the patient's who's at the bedside, they are refusing PICC placement, will notify the physician.
--- NOTE | 2019-11-09 15:04 | PDOC ---
PROGRESS NOTES Chief Complaint Chief Complaint Bilateral DVT Neutropenia and bandemia, recent C diff infection Encephalopathy secondary to medication, currently resolved Diarrhea. Recurrent C diff? C diff Diarrhea on last hospital stay, completed a 10 day course of antibiotics. H/o recent Severe pancreatitis s/p ex-lap with pancreatic necrosectomy, cholecystostomy tube placement, gastrostomy tube placement, tracheostomy placement, 5 drains, 1.5L ascites drained - likely gallstone Status post tracheostomy - reversed, recovered Severe protein calorie malnutrition - started G-tube feeds Physician deconditioning - PT OT followed History of Hepatitis B j tube replaced by IR during last hospitalization but tolerating TFs at night well. Cont vancomycin for two more days at discharge to complete 10 day course hold lasix BB and metformin at dc. a1c 7%. Plan: Continue Eliquis Will hold trazodone Remeron gabapentin and BuSpar as requested by patient's who is at bedside today Awaiting for ID search consultant recommendations at the time of my visit earlier this morning Continue oRal vancomycin and increase the dose as per recommendations from search consultant tube feeding may be causing diarrhea as well. will check stool pathogen his lower extremity edema may be a consequence of his severe protein calorie malnutrition and also a consequence of his DVT, this seems to be improved reassurance has been provided to the patient and his at bedside reassess in the am History of Present Illness History of Present Illness History of Present Illness History of Present Illness Limited H&P since patient is not a very good historian. Patient is a 49-year-old gentleman with past medical history of GERD pancreatitis history of DVT who comes to the emergency department complaining of bilateral leg swelling. At the time of my visit the patient is lying in bed in no apparent distress, he seems to be had of hearing, he is not offering many details about the story and we were asked to admit due to results of Doppler ultrasound revealing bilateral DVTs. Apparently the patient had been on Coumadin before it is unclear at this point if the patient has been taking Coumadin prior to this visit to the emergency department. Patient denies any headaches no blurred vision no strokelike symptoms no chest pain palpitations no shortness of breath has been reported. Patient denies abdominal pain no nausea vomiting or diarrhea. The patient certainly complains of discomfort over his bilateral extremities due to the edema. No other complaints were voiced, plan of care has been explained detail to the patient. Later in the day visited with nursing staff letting her concerned that patient may be having excessive sedation from his home medications that include trazodone and Remeron. Will place this on hold I have discussed this w [facility] nursing staff 11/08: Patient with recent admission to the hospital for C. difficile and still having diarrhea he had a significant bandemia which could be a consequence of ongoing C. difficile infection. Today feels much better and seems much more marcy ke compared to yesterday after washout of his medications as most likely has kept him quite sedated at home. I have encourage more protein intake plan of care explained detail to the patient and his and all of their concerns were addressed to the best of my ability Vitals Vitals Vital Signs Date Time Temp Pulse Resp B/P (MAP) Pulse Ox O2 Delivery O2 Flow Rate FiO2 11/09/19 13:35 97.7 118 20 117/90 (99) 100 Room Air 97.7 Physical Exam Lungs: Clear Labs LABS Laboratory Tests Test 11/08/19 17:12 11/08/19 20:15 11/09/19 08:26 11/09/19 12:04 Glucose (Fingerstick) 109 mg/dL (70-99) 113 mg/dL (70-99) 95 mg/dL (70-99) 137 mg/dL (70-99) Review of Systems Review of Systems Pertinent as per HPI otherwise 10 point review of system is negative Comment Review of Relevant I have reviewed the following items alexandra (where applicable) has been applied. Labs Laboratory Tests Test 11/07/19 20:10 11/07/19 22:22 11/08/19 09:15 11/08/19 11:16 Urine Collection Type Unknown Urine Color Demi Urine Clarity Clear Urine pH 7.0 (<5.0-8.0) Urine Specific [place] 1.020 (1.000-1.030) Urine Protein 30 mg/dL (NEG-TRACE) Urine Glucose (UA) Negative mg/dL (NEG) Urine Ketones (Stick) Negative mg/dL (NEG) Urine Blood Large (NEG) Urine Nitrite Negative (NEG) Urine Bilirubin Negative (NEG) Urine Urobilinogen Dipstick 1.0 mg/dL (0.2 mg/dL) Urine Leukocyte Esterase Trace (NEG) Urine RBC >40 /HPF (0-2) Urine WBC 5-10 /HPF (0-4) Urine Squamous Epithelial Cells Few /LPF Urine Bacteria Moderate /HPF (0-FEW) Urine Hyaline Casts Occasional /HPF Urine Mucus Slight /LPF White Blood Count 17.0 x10^3/uL (4.0-11.0) 17.0 x10^3/uL (4.0-11.0) Red Blood Count 3.15 x10^6/uL (4.30-5.70) 2.88 x10^6/uL (4.30-5.70) Hemoglobin 8.4 g/dL (13.0-17.5) 7.9 g/dL (13.0-17.5) Hematocrit 25.7 % (39.0-53.0) 23.5 % (39.0-53.0) Mean Corpuscular Volume 82 fL (79-100) 82 fL (79-100) Mean Corpuscular Hemoglobin 27 pg (25-35) 28 pg (25-35) Mean Corpuscular Hemoglobin Concent 33 g/dL (31-37) 34 g/dL (31-37) Red Cell Distribution Width 20.8 % (11.5-14.5) 20.9 % (11.5-14.5) Platelet Count 400 x10^3/uL (140-400) 348 x10^3/uL (140-400) Neutrophils (%) (Auto) 85 % (31-73) 91 % (31-73) Lymphocytes (%) (Auto) 6 % (24-48) 3 % (24-48) Monocytes (%) (Auto) 9 % (0-9) 6 % (0-9) Eosinophils (%) (Auto) 0 % (0-3) 0 % (0-3) Basophils (%) (Auto) 0 % (0-3) 0 % (0-3) Neutrophils # (Auto) 14.5 x10^3/uL (1.8-7.7) 15.4 x10^3/uL (1.8-7.7) Lymphocytes # (Auto) 1.0 x10^3/uL (1.0-4.8) 0.5 x10^3/uL (1.0-4.8) Monocytes # (Auto) 1.5 x10^3/uL (0.0-1.1) 1.0 x10^3/uL (0.0-1.1) Eosinophils # (Auto) 0.0 x10^3/uL (0.0-0.7) 0.0 x10^3/uL (0.0-0.7) Basophils # (Auto) 0.1 x10^3/uL (0.0-0.2) 0.1 x10^3/uL (0.0-0.2) Segmented Neutrophils % 67 % (35-66) Band Neutrophils % 29 % (0-9) Lymphocytes % 2 % (24-48) Monocytes % 2 % (0-10) Toxic Granulation Mod Platelet Estimate Adequate (ADEQUATE) Polychromasia Slight Anisocytosis Mod Prothrombin Time 18.5 SEC (11.7-14.0) Prothromb Time International Ratio 1.6 (0.8-1.1) Activated Partial Thromboplast Time 42 SEC (24-38) Sodium Level 134 mmol/L (136-145) 136 mmol/L (136-145) Potassium Level 4.5 mmol/L (3.5-5.1) 4.1 mmol/L (3.5-5.1) Chloride Level 102 mmol/L (98-107) 102 mmol/L (98-107) Carbon Dioxide Level 31 mmol/L (21-32) 31 mmol/L (21-32) Anion Gap 1 (6-14) 3 (6-14) Blood Urea Nitrogen 19 mg/dL (8-26) 20 mg/dL (8-26) Creatinine 1.0 mg/dL (0.7-1.3) 0.9 mg/dL (0.7-1.3) Estimated GFR (Cockcroft-Gault) 96.1 108.5 BUN/Creatinine Ratio 19 (6-20) 22 (6-20) Glucose Level 83 mg/dL (70-99) 92 mg/dL (70-99) Lactic Acid Level 1.7 mmol/L (0.4-2.0) 1.8 mmol/L (0.4-2.0) Calcium Level 7.4 mg/dL (8.5-10.1) 6.9 mg/dL (8.5-10.1) Magnesium Level 2.0 mg/dL (1.8-2.4) Total Bilirubin 1.2 mg/dL (0.2-1.0) 0.8 mg/dL (0.2-1.0) Aspartate Amino Transf (AST/SGOT) 24 U/L (15-37) 22 U/L (15-37) Alanine Aminotransferase (ALT/SGPT) 31 U/L (16-63) 24 U/L (16-63) Alkaline Phosphatase 580 U/L (46-116) 490 U/L (46-116) Creatine Kinase 46 U/L (39-308) Creatine Kinase MB (Mass) < 0.5 ng/mL (0.0-3.6) Creatine Kinase MB Relative Index % (0-4) Troponin I Quantitative < 0.017 ng/mL (0.000-0.055) Total Protein 7.2 g/dL (6.4-8.2) 6.1 g/dL (6.4-8.2) Albumin 1.3 g/dL (3.4-5.0) 1.0 g/dL (3.4-5.0) Albumin/Globulin Ratio 0.2 (1.0-1.7) 0.2 (1.0-1.7) Amylase Level 19 U/L (25-115) Lipase 66 U/L (73-393) Procalcitonin 0.68 ng/mL (0.00-0.10) Glucose (Fingerstick) 73 mg/dL (70-99) Test 11/08/19 17:12 11/08/19 20:15 11/09/19 08:26 11/09/19 12:04 Glucose (Fingerstick) 109 mg/dL (70-99) 113 mg/dL (70-99) 95 mg/dL (70-99) 137 mg/dL (70-99) Laboratory Tests Test 11/08/19 17:12 11/08/19 20:15 11/09/19 08:26 11/09/19 12:04 Glucose (Fingerstick) 109 mg/dL (70-99) 113 mg/dL (70-99) 95 mg/dL (70-99) 137 mg/dL (70-99) Microbiology 11/08/19 Blood Culture - Preliminary, Resulted NO GROWTH AFTER 1 DAY 11/07/19 Urine Culture - Final, Complete Medications Current Medications Ceftriaxone Sodium (Rocephin) 1 gm 1X ONCE IVP ; Start 11/08/19 at 00:00; Stop 11/08/19 at 01:23; Status DC Enoxaparin Sodium (Lovenox 80mg Syringe) 80 mg 1X ONCE SQ Last administered on 11/08/19at 02:43; Start 11/08/19 at 00:00; Stop 11/08/19 at 00:01; Status DC Ceftriaxone Sodium (Rocephin Im) 1 gm 1X ONCE IM Last administered on 11/08/19at 02:42; Start 11/08/19 at 01:45; Stop 11/08/19 at 01:46; Status DC Lorazepam (Ativan) 0.5 mg 1X ONCE PO Last administered on 11/08/19at 03:28; Start 11/08/19 at 03:15; Stop 11/08/19 at 03:16; Status DC Acetaminophen (Tylenol) 500 mg PRN Q6HRS PRN PO FEVER; Start 11/08/19 at 07:30 Alprazolam (Xanax) 0.5 mg HS PO Last administered on 11/08/19at 20:48; Start 11/08/19 at 21:00 Buspirone HCl (Buspar) 10 mg BIDACBL PO Last administered on 11/08/19at 10:54; Start 11/08/19 at 07:30; Stop 11/08/19 at 11:46; Status DC Ferrous Sulfate (Feosol) 325 mg BIDWMEALS PO Last administered on 11/09/19at 10:03; Start 11/08/19 at 08:00 Gabapentin (Neurontin) 100 mg TID PO Last administered on 11/08/19at 10:54; Start 11/08/19 at 09:00; Stop 11/08/19 at 11:46; Status DC Mirtazapine (Remeron) 15 mg QHS PO ; Start 11/08/19 at 21:00; Stop 11/08/19 at 17:19; Status DC Pantoprazole Sodium (Protonix) 40 mg DAILYAC PO Last administered on 11/09/19at 10:04; Start 11/08/19 at 08:00 Trazodone HCl (Desyrel) 50 mg QHS PO ; Start 11/08/19 at 21:00; Stop 11/08/19 at 17:19; Status DC Oxycodone HCl (Roxicodone) 15 mg PRN Q6HRS PRN PO PAIN; Start 11/08/19 at 07:45 Apixaban (Eliquis) 10 mg BID PO Last administered on 11/09/19at 10:03; Start 11/08/19 at 09:00; Stop 11/14/19 at 21:01 Apixaban (Eliquis) 5 mg BID PO ; Start 11/15/19 at 09:00 Info (Anti-Coagulation Monitoring By Pharmacy) 1 each PRN DAILY PRN MC SEE COMMENTS Last administered on 11/09/19at 10:37; Start 11/08/19 at 07:45 Vancomycin HCl (Vancomycin Oral Solution) 125 mg [id number] PO Last administered on 11/08/19at 20:48; Start 11/08/19 at 17:30; Stop 11/09/19 at 09:55; Status DC Vancomycin HCl (Vancomycin Oral Solution) 250 mg [id number] PO Last administered on 11/09/19at 13:37; Start 11/09/19 at 13:00 Lactobacillus Rhamnosus (Culturelle) 1 cap BID PO ; Start 11/09/19 at 21:00 Active Scripts Active Oxycodone Hcl Immed.release (Oxycodone Hcl) 15 Mg Tablet 15 Mg PO PRN Q6HRS PRN 5 Days Reported Remeron (Mirtazapine) 15 Mg Tablet 1 Tab PO QHS Buspirone Hcl 10 Mg Tablet 1 Tab PO BIDACBL Alprazolam 0.5 Mg Tablet 1 Tab PO HS Acetaminophen 500 Mg Tablet 1 Tab PO PRN Q6HRS PRN 15 Days Ferrous Sulfate 325 Mg Tablet 65 Mg PO BID Pantoprazole Sodium (Pantoprazole Sodium) 40 Mg Tablet.dr 40 Mg PO DAILYAC Trazodone Hcl 50 Mg Tablet 1 Tab PO QHS Gabapentin (Gabapentin) 100 Mg Capsule 100 Mg PO TID Vitals/I & O Vital Sign - Last 24 Hours 11/08/19 11/08/19 11/08/19 11/09/19 19:00 19:35 23:00 03:18 Temp 97.8 97.9 97.8 97.8 97.9 97.8 Pulse 128 109 114 Resp 20 18 18 B/P (MAP) 118/86 (97) 104/65 (78) 102/66 (78) Pulse Ox 100 97 99 O2 Delivery Room Air Room Air Room Air Room Air 11/09/19 11/09/19 11/09/19 11/09/19 07:59 08:00 11:00 13:35 Temp 97.8 97.7 97.8 97.7 Pulse 103 118 Resp 20 20 B/P (MAP) 110/81 (91) 117/90 (99) Pulse Ox 95 100 O2 Delivery Room Air Room Air Room Air Room Air Intake and Output 11/08/19 11/08/19 11/09/19 15:00 23:00 07:00 Output Total 0 ml Balance 0 ml Justicifation of Admission Dx: Justifications for Admission: Justification of Admission Dx: Yes Comminuty Aquired Pneumonia: Med-High Risk Pt Sepsis: Infection BRENDA JONAS MD Nov 09, 2019 15:04
[2019-11-09 15:59] VITALS: BP 120/90
[2019-11-09] MEDS: PIPERACILLIN/TAZOBACTAM 3.375 GM in IV NORMAL SALINE 50ML 50 ML IV SCH (18:43)
[2019-11-09 19:00] VITALS: BP 115/90
[2019-11-09] MEDS: oxyCODONE IR 5 MG TABLET PO PRN (19:35)
[2019-11-09] MEDS: ALPRAZolam 0.5 MG TABLET PO SCH (21:51)
[2019-11-09] MEDS: LACTOBACILLUS RHAMNOSUS GG 1 CAPSULE. PO SCH (21:51)
[2019-11-09 23:40] VITALS: BP 106/84
[2019-11-10] VITALS (7 sets, daily range): BP systolic 108–125; BP diastolic 81–98
[2019-11-10] MEDS: PIPERACILLIN/TAZOBACTAM 3.375 GM in IV NORMAL SALINE 50ML 50 ML IV SCH ×2 (00:47→05:58)
[2019-11-10] MEDS: oxyCODONE IR 5 MG TABLET PO PRN ×2 (03:43→21:39)
[2019-11-10 08:45] LABS: BASO % 0 % (0-3); EOS % 0 % (0-3); HEMATOCRIT 27.2 % (39.0-53.0); HEMOGLOBIN 8.6 g/dL (13.0-17.5); LYMPH % 8 % (24-48); MEAN CORPUSCULAR HEMOGLOBIN 26 pg (25-35); MEAN CORPUSCULAR HGB CONC 32 g/dL (31-37); MEAN CORPUSCULAR VOLUME 83 fL (79-100); MONO # 0.9 x10^3/uL (0.0-1.1); MONO % 7 % (0-9); NEUT # 10.6 x10^3/uL (1.8-7.7); NEUT % 84 % (31-73); PLATELET COUNT 446 x10^3/uL (140-400); RED BLOOD COUNT 3.27 x10^6/uL (4.30-5.70); RED CELL DISTRIBUTION WIDTH 20.8 % (11.5-14.5); WHITE BLOOD COUNT 12.5 x10^3/uL (4.0-11.0)
[2019-11-10 09:02] LABS: ALBUMIN 1.2 g/dL (3.4-5.0); ALBUMIN/GLOBULIN RATIO 0.2 (1.0-1.7); CALCIUM 7.2 mg/dL (8.5-10.1); CREATININE 1.2 mg/dL (0.7-1.3); GFR 77.9; POTASSIUM 3.9 mmol/L (3.5-5.1); TOTAL BILIRUBIN 1.3 mg/dL (0.2-1.0); TOTAL PROTEIN 6.9 g/dL (6.4-8.2)
[2019-11-10] MEDS: VANCOMYCIN 125 MG/2.5 ML ORAL SOLUTION. PO SCH ×4 (09:26→21:38)
[2019-11-10] MEDS: LACTOBACILLUS RHAMNOSUS GG 1 CAPSULE. PO SCH ×2 (09:26→21:39)
[2019-11-10] MEDS: FERROUS SULFATE 325 MG TABLET. PO SCH ×2 (09:26→17:32)
[2019-11-10] MEDS: APIXABAN 5 MG TABLET. PO SCH ×2 (09:27→21:40)
[2019-11-10] MEDS: PANTOPRAZOLE 40 MG TABLET.DR. PO SCH (09:27)
--- NOTE | 2019-11-10 09:59 | NUR ---
Wound Care Pt has draining drain sites in right abdomen that are covered with ostomy bag. Bag placed on 11/08andis not leaking at this time. WC will continue to check on bag status daily
--- NOTE | 2019-11-10 10:37 | PDOC ---
Infectious Disease Note Subjective Subjective Doing ok but legs swollen. Still loose stool No F/c/s/n/V/SOA/rash ROS ROS o/w neg Vital Sign Vital Signs Vital Signs Date Time Temp Pulse Resp B/P (MAP) Pulse Ox O2 Delivery O2 Flow Rate FiO2 11/10/19 08:15 Room Air 11/10/19 07:32 98.0 105 20 115/85 (95) 97 98.0 Physical Exam PHYSICAL EXAM GENERAL: Thin, cachectic male in no acute distress, sleepy, but arousable, oriented. HEENT: Normocephalic, atraumatic. No thrush. NECK: Supple, no lymphadenopathy. LUNGS: Decreased breath sounds at the bases, otherwise clear. HEART: S1, S2. No gallops or murmurs. ABDOMEN: Distended, soft, nontender, fistula in place, GJ tube in place. EXTREMITIES: Edema, no cyanosis. DERMATOLOGIC: Warm, dry. 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 NEUROLOGIC: Alert, awake, answers a few questions. PSYCHIATRIC: Flat affect. DERMATOLOGIC: No generalized rash. Labs Lab Laboratory Tests Test 11/09/19 12:04 11/09/19 16:56 11/09/19 20:49 11/10/19 07:40 Glucose (Fingerstick) 137 mg/dL (70-99) 122 mg/dL (70-99) 90 mg/dL (70-99) 88 mg/dL (70-99) Test 11/10/19 08:25 White Blood Count 12.5 x10^3/uL (4.0-11.0) Red Blood Count 3.27 x10^6/uL (4.30-5.70) Hemoglobin 8.6 g/dL (13.0-17.5) Hematocrit 27.2 % (39.0-53.0) Mean Corpuscular Volume 83 fL (79-100) Mean Corpuscular Hemoglobin 26 pg (25-35) Mean Corpuscular Hemoglobin Concent 32 g/dL (31-37) Red Cell Distribution Width 20.8 % (11.5-14.5) Platelet Count 446 x10^3/uL (140-400) Neutrophils (%) (Auto) 84 % (31-73) Lymphocytes (%) (Auto) 8 % (24-48) Monocytes (%) (Auto) 7 % (0-9) Eosinophils (%) (Auto) 0 % (0-3) Basophils (%) (Auto) 0 % (0-3) Neutrophils # (Auto) 10.6 x10^3/uL (1.8-7.7) Lymphocytes # (Auto) 1.0 x10^3/uL (1.0-4.8) Monocytes # (Auto) 0.9 x10^3/uL (0.0-1.1) Eosinophils # (Auto) 0.0 x10^3/uL (0.0-0.7) Basophils # (Auto) 0.0 x10^3/uL (0.0-0.2) Sodium Level 137 mmol/L (136-145) Potassium Level 3.9 mmol/L (3.5-5.1) Chloride Level 102 mmol/L (98-107) Carbon Dioxide Level 29 mmol/L (21-32) Anion Gap 6 (6-14) Blood Urea Nitrogen 20 mg/dL (8-26) Creatinine 1.2 mg/dL (0.7-1.3) Estimated GFR (Cockcroft-Gault) 77.9 BUN/Creatinine Ratio 17 (6-20) Glucose Level 114 mg/dL (70-99) Calcium Level 7.2 mg/dL (8.5-10.1) Total Bilirubin 1.3 mg/dL (0.2-1.0) Aspartate Amino Transf (AST/SGOT) 28 U/L (15-37) Alanine Aminotransferase (ALT/SGPT) 33 U/L (16-63) Alkaline Phosphatase 801 U/L (46-116) Total Protein 6.9 g/dL (6.4-8.2) Albumin 1.2 g/dL (3.4-5.0) Albumin/Globulin Ratio 0.2 (1.0-1.7) Micro Microbiology 11/08/19 Blood Culture - Preliminary, Resulted NO GROWTH AFTER 2 DAYS 11/07/19 Urine Culture - Final, Complete Objective Assessment 1. Bilateral lower extremity deep venous thrombosis 11/06 2. Clostridium difficile colitis 10/22 3. Leukocytosis with bandemia- better 4. Left basilar pleural effusion and consolidation, chronic. 5. History of severe pancreatitis, status post exploratory laparotomy with pancreatic necrosectomy, cholecystotomy tube placement, gastrostomy tube placement, tracheostomy placement, five drains. Ascitic fluid drained status post tracheostomy recovered, history of hepatitis B during last admission in 07/2019. 6. Severe protein malnutrition Plan Plan of Care 1. Continue p.o. vancomycin, increase the dose of 250 p.o. q.i.d. 2. Follow up blood cultures. 3. Hold zosyn as WBC has improved but only 3 doses and ? if WBC from DVT 4. Consult Gen Surg - ? need for Repeat - CT? Need TPN 5. Continue supportive care. [facility] - [phone] LE Dickinson MD Nov 10, 2019 10:37
--- NOTE | 2019-11-10 11:35 | NUR ---
SW following. Discussed with RN, pt from home with , tachy, ostomy bag, tube feeds through [facility]. SW verified with [facility], they do not require anything from hospitalization, unless pt's feeds have changed. IV zosyn started today, continue PO vanco. Per RN, pt will not allow PICC line placement. Blood cultures pending. SW reached out to [facility] to determine what happened to cause pt to return to [facility]. SW will continue to follow.
--- NOTE | 2019-11-10 12:42 | PDOC ---
PROGRESS NOTES Chief Complaint Chief Complaint Bilateral DVT Neutropenia and bandemia, recent C diff infection Encephalopathy secondary to medication, currently resolved Diarrhea. Recurrent C diff? C diff Diarrhea on last hospital stay, completed a 10 day course of antibiotics. H/o recent Severe pancreatitis s/p ex-lap with pancreatic necrosectomy, cholecystostomy tube placement, gastrostomy tube placement, tracheostomy placement, 5 drains, 1.5L ascites drained - likely gallstone Status post tracheostomy - reversed, recovered Severe protein calorie malnutrition - started G-tube feeds Physician deconditioning - PT OT followed History of Hepatitis B j tube replaced by IR during last hospitalization but tolerating TFs at night well. Cont vancomycin for two more days at discharge to complete 10 day course hold lasix BB and metformin at dc. a1c 7%. Plan: Continue Eliquis Will hold trazodone Remeron gabapentin and BuSpar as requested by patient's who is at bedside today Awaiting for ID independent crop consultant recommendations at the time of my visit earlier this morning Continue oRal vancomycin and increase the dose as per recommendations from independent crop consultant tube feeding may be causing diarrhea as well. will have dietary consult for advise, since the patient is having diarrhea, ID independent crop consultant recommending TPN, will wait for dietary evaluation his lower extremity edema may be a consequence of his severe protein calorie malnutrition and also a consequence of his DVT, this seems to be improved reassurance has been provided to the patient and his at bedside reassess in the am History of Present Illness History of Present Illness History of Present Illness History of Present Illness Limited H&P since patient is not a very good historian. Patient is a 49-year-old gentleman with past medical history of GERD pancreatitis history of DVT who comes to the emergency department complaining of bilateral leg swelling. At the time of my visit the patient is lying in bed in no apparent distress, he seems to be had of hearing, he is not offering many details about the story and we were asked to admit due to results of Doppler ultrasound revealing bilateral DVTs. Apparently the patient had been on Coumadin before it is unclear at this point if the patient has been taking Coumadin prior to this visit to the emergency department. Patient denies any headaches no blurred vision no strokelike symptoms no chest pain palpitations no shortness of breath has been reported. Patient denies abdominal pain no nausea vomiting or diarrhea. The patient certainly complains of discomfort over his bilateral extremities due to the edema. No other complaints were voiced, plan of care has been explained detail to the patient. Later in the day visited with nursing staff letting her concerned that patient may be having excessive sedation from his home medications that include trazodone and Remeron. Will place this on hold I have discussed this with nursing staff 11/08: Patient with recent admission to the hospital for C. difficile and still having diarrhea he had a significant bandemia which could be a consequence of ongoing C. difficile infection. Today feels much better and seems much more awake compared to yesterday after washout of his medications as most likely has kept him quite sedated at home. I have encourage more protein intake plan of care explained detail to the patient and his and all of their concerns were addressed to the best of my ability Vitals Vitals Vital Signs Date Time Temp Pulse Resp B/P (MAP) Pulse Ox O2 Delivery O2 Flow Rate FiO2 11/10/19 11:15 97.9 114 20 108/83 (91) 97 Room Air 97.9 Physical Exam Physical Exam GENERAL: Thin, cachectic male in no acute distress, sleepy, but arousable, oriented. HEENT: Normocephalic, atraumatic. No thrush. NECK: Supple, no lymphadenopathy. LUNGS: Decreased breath sounds at the bases, otherwise clear. HEART: S1, S2. No gallops or murmurs. ABDOMEN: Distended, soft, nontender, fistula in place, GJ tube in place. EXTREMITIES: Edema, no cyanosis. DERMATOLOGIC: Warm, dry. 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 NEUROLOGIC: Alert, awake, answers a few questions. PSYCHIATRIC: Flat affect. DERMATOLOGIC: No generalized rash. Lungs: Clear Labs LABS Laboratory Tests Test 11/09/19 16:56 11/09/19 20:49 11/10/19 07:40 11/10/19 08:25 Glucose (Fingerstick) 122 mg/dL (70-99) 90 mg/dL (70-99) 88 mg/dL (70-99) White Blood Count 12.5 x10^3/uL (4.0-11.0) Red Blood Count 3.27 x10^6/uL (4.30-5.70) Hemoglobin 8.6 g/dL (13.0-17.5) Hematocrit 27.2 % (39.0-53.0) Mean Corpuscular Volume 83 fL (79-100) Mean Corpuscular Hemoglobin 26 pg (25-35) Mean Corpuscular Hemoglobin Concent 32 g/dL (31-37) Red Cell Distribution Width 20.8 % (11.5-14.5) Platelet Count 446 x10^3/uL (140-400) Neutrophils (%) (Auto) 84 % (31-73) Lymphocytes (%) (Auto) 8 % (24-48) Monocytes (%) (Auto) 7 % (0-9) Eosinophils (%) (Auto) 0 % (0-3) Basophils (%) (Auto) 0 % (0-3) Neutrophils # (Auto) 10.6 x10^3/uL (1.8-7.7) Lymphocytes # (Auto) 1.0 x10^3/uL (1.0-4.8) Monocytes # (Auto) 0.9 x10^3/uL (0.0-1.1) Eosinophils # (Auto) 0.0 x10^3/uL (0.0-0.7) Basophils # (Auto) 0.0 x10^3/uL (0.0-0.2) Sodium Level 137 mmol/L (136-145) Potassium Level 3.9 mmol/L (3.5-5.1) Chloride Level 102 mmol/L (98-107) Carbon Dioxide Level 29 mmol/L (21-32) Anion Gap 6 (6-14) Blood Urea Nitrogen 20 mg/dL (8-26) Creatinine 1.2 mg/dL (0.7-1.3) Estimated GFR (Cockcroft-Gault) 77.9 BUN/Creatinine Ratio 17 (6-20) Glucose Level 114 mg/dL (70-99) Calcium Level 7.2 mg/dL (8.5-10.1) Total Bilirubin 1.3 mg/dL (0.2-1.0) Aspartate Amino Transf (AST/SGOT) 28 U/L (15-37) Alanine Aminotransferase (ALT/SGPT) 33 U/L (16-63) Alkaline Phosphatase 801 U/L (46-116) Total Protein 6.9 g/dL (6.4-8.2) Albumin 1.2 g/dL (3.4-5.0) Albumin/Globulin Ratio 0.2 (1.0-1.7) Test 11/10/19 11:36 Glucose (Fingerstick) 122 mg/dL (70-99) Comment Review of Relevant I have reviewed the following items alexandra (where applicable) has been applied. Labs Laboratory Tests Test 11/08/19 17:12 11/08/19 20:15 11/09/19 08:26 11/09/19 12:04 Glucose (Fingerstick) 109 mg/dL (70-99) 113 mg/dL (70-99) 95 mg/dL (70-99) 137 mg/dL (70-99) Test 11/09/19 16:56 11/09/19 20:49 11/10/19 07:40 11/10/19 08:25 Glucose (Fingerstick) 122 mg/dL (70-99) 90 mg/dL (70-99) 88 mg/dL (70-99) White Blood Count 12.5 x10^3/uL (4.0-11.0) Red Blood Count 3.27 x10^6/uL (4.30-5.70) Hemoglobin 8.6 g/dL (13.0-17.5) Hematocrit 27.2 % (39.0-53.0) Mean Corpuscular Volume 83 fL (79-100) Mean Corpuscular Hemoglobin 26 pg (25-35) Mean Corpuscular Hemoglobin Concent 32 g/dL (31-37) Red Cell Distribution Width 20.8 % (11.5-14.5) Platelet Count 446 x10^3/uL (140-400) Neutrophils (%) (Auto) 84 % (31-73) Lymphocytes (%) (Auto) 8 % (24-48) Monocytes (%) (Auto) 7 % (0-9) Eosinophils (%) (Auto) 0 % (0-3) Basophils (%) (Auto) 0 % (0-3) Neutrophils # (Auto) 10.6 x10^3/uL (1.8-7.7) Lymphocytes # (Auto) 1.0 x10^3/uL (1.0-4.8) Monocytes # (Auto) 0.9 x10^3/uL (0.0-1.1) Eosinophils # (Auto) 0.0 x10^3/uL (0.0-0.7) Basophils # (Auto) 0.0 x10^3/uL (0.0-0.2) Sodium Level 137 mmol/L (136-145) Potassium Level 3.9 mmol/L (3.5-5.1) Chloride Level 102 mmol/L (98-107) Carbon Dioxide Level 29 mmol/L (21-32) Anion Gap 6 (6-14) Blood Urea Nitrogen 20 mg/dL (8-26) Creatinine 1.2 mg/dL (0.7-1.3) Estimated GFR (Cockcroft-Gault) 77.9 BUN/Creatinine Ratio 17 (6-20) Glucose Level 114 mg/dL (70-99) Calcium Level 7.2 mg/dL (8.5-10.1) Total Bilirubin 1.3 mg/dL (0.2-1.0) Aspartate Amino Transf (AST/SGOT) 28 U/L (15-37) Alanine Aminotransferase (ALT/SGPT) 33 U/L (16-63) Alkaline Phosphatase 801 U/L (46-116) Total Protein 6.9 g/dL (6.4-8.2) Albumin 1.2 g/dL (3.4-5.0) Albumin/Globulin Ratio 0.2 (1.0-1.7) Test 11/10/19 11:36 Glucose (Fingerstick) 122 mg/dL (70-99) Laboratory Tests Test 11/09/19 16:56 11/09/19 20:49 11/10/19 07:40 11/10/19 08:25 Glucose (Fingerstick) 122 mg/dL (70-99) 90 mg/dL (70-99) 88 mg/dL (70-99) White Blood Count 12.5 x10^3/uL (4.0-11.0) Red Blood Count 3.27 x10^6/uL (4.30-5.70) Hemoglobin 8.6 g/dL (13.0-17.5) Hematocrit 27.2 % (39.0-53.0) Mean Corpuscular Volume 83 fL (79-100) Mean Corpuscular Hemoglobin 26 pg (25-35) Mean Corpuscular Hemoglobin Concent 32 g/dL (31-37) Red Cell Distribution Width 20.8 % (11.5-14.5) Platelet Count 446 x10^3/uL (140-400) Neutrophils (%) (Auto) 84 % (31-73) Lymphocytes (%) (Auto) 8 % (24-48) Monocytes (%) (Auto) 7 % (0-9) Eosinophils (%) (Auto) 0 % (0-3) Basophils (%) (Auto) 0 % (0-3) Neutrophils # (Auto) 10.6 x10^3/uL (1.8-7.7) Lymphocytes # (Auto) 1.0 x10^3/uL (1.0-4.8) Monocytes # (Auto) 0.9 x10^3/uL (0.0-1.1) Eosinophils # (Auto) 0.0 x10^3/uL (0.0-0.7) Basophils # (Auto) 0.0 x10^3/uL (0.0-0.2) Sodium Level 137 mmol/L (136-145) Potassium Level 3.9 mmol/L (3.5-5.1) Chloride Level 102 mmol/L (98-107) Carbon Dioxide Level 29 mmol/L (21-32) Anion Gap 6 (6-14) Blood Urea Nitrogen 20 mg/dL (8-26) Creatinine 1.2 mg/dL (0.7-1.3) Estimated GFR (Cockcroft-Gault) 77.9 BUN/Creatinine Ratio 17 (6-20) Glucose Level 114 mg/dL (70-99) Calcium Level 7.2 mg/dL (8.5-10.1) Total Bilirubin 1.3 mg/dL (0.2-1.0) Aspartate Amino Transf (AST/SGOT) 28 U/L (15-37) Alanine Aminotransferase (ALT/SGPT) 33 U/L (16-63) Alkaline Phosphatase 801 U/L (46-116) Total Protein 6.9 g/dL (6.4-8.2) Albumin 1.2 g/dL (3.4-5.0) Albumin/Globulin Ratio 0.2 (1.0-1.7) Test 11/10/19 11:36 Glucose (Fingerstick) 122 mg/dL (70-99) Microbiology 11/08/19 Blood Culture - Preliminary, Resulted NO GROWTH AFTER 2 DAYS 11/07/19 Urine Culture - Final, Complete Medications Current Medications Ceftriaxone Sodium (Rocephin) 1 gm 1X ONCE IVP ; Start 11/08/19 at 00:00; Stop 11/08/19 at 01:23; Status DC Enoxaparin Sodium (Lovenox 80mg Syringe) 80 mg 1X ONCE SQ Last administered on 11/08/19at 02:43; Start 11/08/19 at 00:00; Stop 11/08/19 at 00:01; Status DC Ceftriaxone Sodium (Rocephin Im) 1 gm 1X ONCE IM Last administered on 11/08/19at 02:42; Start 11/08/19 at 01:45; Stop 11/08/19 at 01:46; Status DC Lorazepam (Ativan) 0.5 mg 1X ONCE PO Last administered on 11/08/19at 03:28; Start 11/08/19 at 03:15; Stop 11/08/19 at 03:16; Status DC Acetaminophen (Tylenol) 500 mg PRN Q6HRS PRN PO FEVER; Start 11/08/19 at 07:30 Alprazolam (Xanax) 0.5 mg HS PO Last administered on 11/09/19at 21:51; Start 11/08/19 at 21:00 Buspirone HCl (Buspar) 10 mg BIDACBL PO Last administered on 11/08/19at 10:54; Start 11/08/19 at 07:30; Stop 11/08/19 at 11:46; Status DC Ferrous Sulfate (Feosol) 325 mg BIDWMEALS PO Last administered on 11/10/19at 09:26; Start 11/08/19 at 08:00 Gabapentin (Neurontin) 100 mg TID PO Last administered on 11/08/19at 10:54; Start 11/08/19 at 09:00; Stop 11/08/19 at 11:46; Status DC Mirtazapine (Remeron) 15 mg QHS PO ; Start 11/08/19 at 21:00; Stop 11/08/19 at 17:19; Status DC Pantoprazole Sodium (Protonix) 40 mg DAILYAC PO Last administered on 11/10/19at 09:27; Start 11/08/19 at 08:00 Trazodone HCl (Desyrel) 50 mg QHS PO ; Start 11/08/19 at 21:00; Stop 11/08/19 at 17:19; Status DC Oxycodone HCl (Roxicodone) 15 mg PRN Q6HRS PRN PO PAIN Last administered on 11/10/19at 03:43; Start 11/08/19 at 07:45 Apixaban (Eliquis) 10 mg BID PO Last administered on 11/10/19at 09:27; Start 11/08/19 at 09:00; Stop 11/14/19 at 21:01 Apixaban (Eliquis) 5 mg BID PO ; Start 11/15/19 at 09:00 Info (Anti-Coagulation Monitoring By Pharmacy) 1 each PRN DAILY PRN MC SEE COMMENTS Last administered on 11/09/19at 10:37; Start 11/08/19 at 07:45 Vancomycin HCl (Vancomycin Oral Solution) 125 mg [id number] PO Last administered on 11/08/19at 20:48; Start 11/08/19 at 17:30; Stop 11/09/19 at 09:55; Status DC Vancomycin HCl (Vancomycin Oral Solution) 250 mg [id number] PO Last administered on 11/10/19at 09:26; Start 11/09/19 at 13:00 Lactobacillus Rhamnosus (Culturelle) 1 cap BID PO Last administered on 11/10/19at 09:26; Start 11/09/19 at 21:00 Piperacillin Sod/ Tazobactam Sod 3.375 gm/Sodium Chloride 50 ml @ 100 mls/hr Q6HRS IV Last administered on 11/10/19at 05:58; Start 11/09/19 at 18:00; Stop 11/10/19 at 11:45; Status DC Active Scripts Active Oxycodone Hcl Immed.release (Oxycodone Hcl) 15 Mg Tablet 15 Mg PO PRN Q6HRS PRN 5 Days Reported Remeron (Mirtazapine) 15 Mg Tablet 1 Tab PO QHS Buspirone Hcl 10 Mg Tablet 1 Tab PO BIDACBL Alprazolam 0.5 Mg Tablet 1 Tab PO HS Acetaminophen 500 Mg Tablet 1 Tab PO PRN Q6HRS PRN 15 Days Ferrous Sulfate 325 Mg Tablet 65 Mg PO BID Pantoprazole Sodium (Pantoprazole Sodium) 40 Mg Tablet.dr 40 Mg PO DAILYAC Trazodone Hcl 50 Mg Tablet 1 Tab PO QHS Gabapentin (Gabapentin) 100 Mg Capsule 100 Mg PO TID Vitals/I & O Vital Sign - Last 24 Hours 11/09/19 11/09/19 11/09/19 11/09/19 13:35 15:59 19:00 20:35 Temp 97.7 97.6 98.0 97.7 97.6 98.0 Pulse 118 121 116 Resp 20 18 18 B/P (MAP) 117/90 (99) 120/90 (100) 115/90 (98) Pulse Ox 100 90 98 O2 Delivery Room Air Room Air Room Air Room Air 11/09/19 11/09/19 11/10/19 11/10/19 21:50 23:40 03:35 07:32 Temp 97.6 97.8 98.0 97.6 97.8 98.0 Pulse 114 109 105 Resp 20 20 20 B/P (MAP) 106/84 (91) 121/90 (100) 115/85 (95) Pulse Ox 100 98 97 O2 Delivery Room Air Room Air Room Air Room Air 11/10/19 11/10/19 08:15 11:15 Temp 97.9 97.9 Pulse 114 Resp 20 B/P (MAP) 108/83 (91) Pulse Ox 97 O2 Delivery Room Air Room Air Intake and Output 11/09/19 11/09/19 11/10/19 15:00 23:00 07:00 Intake Total 240 ml 200 ml Balance 240 ml 200 ml Nutrition Consultation Dietary Evaluation: Recommendations by RD: Dietary education by RD, Increase Calorie Intake, Protein supplementation Comments: regular diet with thomas bid REC mvi q day Expected Outcomes/Goals: to meet >75% est nutr needs improved wound status Interpretation of weight loss: >7.5% in 3 months Malnutrition Findings: Weight Status: Appropriate Justicifation of Admission Dx: Justifications for Admission: Justification of Admission Dx: Yes Comminuty Aquired Pneumonia: Med-High Risk Pt Sepsis: Infection BRENDA JONAS MD Nov 10, 2019 12:42
--- NOTE | 2019-11-10 12:45 | PDOC2 ---
MAXIMILIANO MELGOZA [employer] 11/10/19 1245: CONSULT Date of Consult Date of Consult DATE: 11/10/19 TIME: 12:35 Reason for Consult Reason for Consult: prior surgical patient Referring Physician Referring Physician: Dr Penn Identification/Chief Complaint Chief Complaint leg swelling Source Source: Chart review, Patient History of Present Illness Reason for Visit: Patient known from previous admissions C diff malnutrition pseudocyst now with Bilat LE DVTs Past Medical History GI: GERD Hepatobiliary: Hep A/B/C, Other Past Surgical History Past Surgical History: Other Family History Family History: Family History Unknown, Other Social History ALCOHOL: none Drugs: None Lives: with Family Current Medications Current Medications Current Medications Ceftriaxone Sodium (Rocephin) 1 gm 1X ONCE IVP ; Start 11/08/19 at 00:00; Stop 11/08/19 at 01:23; Status DC Enoxaparin Sodium (Lovenox 80mg Syringe) 80 mg 1X ONCE SQ Last administered on 11/08/19at 02:43; Start 11/08/19 at 00:00; Stop 11/08/19 at 00:01; Status DC Ceftriaxone Sodium (Rocephin Im) 1 gm 1X ONCE IM Last administered on 11/08/19at 02:42; Start 11/08/19 at 01:45; Stop 11/08/19 at 01:46; Status DC Lorazepam (Ativan) 0.5 mg 1X ONCE PO Last administered on 11/08/19at 03:28; Start 11/08/19 at 03:15; Stop 11/08/19 at 03:16; Status DC Acetaminophen (Tylenol) 500 mg PRN Q6HRS PRN PO FEVER; Start 11/08/19 at 07:30 Alprazolam (Xanax) 0.5 mg HS PO Last administered on 11/09/19at 21:51; Start 11/08/19 at 21:00 Buspirone HCl (Buspar) 10 mg BIDACBL PO Last administered on 11/08/19at 10:54; Start 11/08/19 at 07:30; Stop 11/08/19 at 11:46; Status DC Ferrous Sulfate (Feosol) 325 mg BIDWMEALS PO Last administered on 11/10/19at 09:26; Start 11/08/19 at 08:00 Gabapentin (Neurontin) 100 mg TID PO Last administered on 11/08/19at 10:54; Start 11/08/19 at 09:00; Stop 11/08/19 at 11:46; Status DC Mirtazapine (Remeron) 15 mg QHS PO ; Start 11/08/19 at 21:00; Stop 11/08/19 at 17:19; Status DC Pantoprazole Sodium (Protonix) 40 mg DAILYAC PO Last administered on 11/10/19at 09:27; Start 11/08/19 at 08:00 Trazodone HCl (Desyrel) 50 mg QHS PO ; Start 11/08/19 at 21:00; Stop 11/08/19 at 17:19; Status DC Oxycodone HCl (Roxicodone) 15 mg PRN Q6HRS PRN PO PAIN Last administered on 11/10/19at 03:43; Start 11/08/19 at 07:45 Apixaban (Eliquis) 10 mg BID PO Last administered on 11/10/19at 09:27; Start 11/08/19 at 09:00; Stop 11/14/19 at 21:01 Apixaban (Eliquis) 5 mg BID PO ; Start 11/15/19 at 09:00 Info (Anti-Coagulation Monitoring By Pharmacy) 1 each PRN DAILY PRN MC SEE COMMENTS Last administered on 11/09/19at 10:37; Start 11/08/19 at 07:45 Vancomycin HCl (Vancomycin Oral Solution) 125 mg [id number] PO Last administered on 11/08/19at 20:48; Start 11/08/19 at 17:30; Stop 11/09/19 at 09:55; Status DC Vancomycin HCl (Vancomycin Oral Solution) 250 mg [id number] PO Last administered on 11/10/19at 09:26; Start 11/09/19 at 13:00 Lactobacillus Rhamnosus (Culturelle) 1 cap BID PO Last administered on 11/10/19at 09:26; Start 11/09/19 at 21:00 Piperacillin Sod/ Tazobactam Sod 3.375 gm/Sodium Chloride 50 ml @ 100 mls/hr Q6HRS IV Last administered on 11/10/19at 05:58; Start 11/09/19 at 18:00; Stop 11/10/19 at 11:45; Status DC Active Scripts Active Oxycodone Hcl Immed.release (Oxycodone Hcl) 15 Mg Tablet 15 Mg PO PRN Q6HRS PRN 5 Days Reported Remeron (Mirtazapine) 15 Mg Tablet 1 Tab PO QHS Buspirone Hcl 10 Mg Tablet 1 Tab PO BIDACBL Alprazolam 0.5 Mg Tablet 1 Tab PO HS Acetaminophen 500 Mg Tablet 1 Tab PO PRN Q6HRS PRN 15 Days Ferrous Sulfate 325 Mg Tablet 65 Mg PO BID Pantoprazole Sodium (Pantoprazole Sodium) 40 Mg Tablet.dr 40 Mg PO DAILYAC Trazodone Hcl 50 Mg Tablet 1 Tab PO QHS Gabapentin (Gabapentin) 100 Mg Capsule 100 Mg PO TID Allergies Allergies: Coded Allergies: No Known Drug Allergies (Unverified , 01/28/16) ROS General: No: Chills, Other (fevers ) PSYCHOLOGICAL ROS: No: Anxiety, Depression Eyes: No Blurry vision, No Double vision HEENT: No: Heacaches, Sore Throat Hematological and Lymphatic: YES: Blood Clots Respiratory: No: Cough, Shortness of breath Cardiovascular: No Chest Pain, No Palpitations Gastrointestinal: No Nausea, No Abdominal Pain Genitourinary: No Dysuria, No Hematuria Musculoskeletal: Yes Joint Pain, Yes Muscle Pain Neurological: No Impaired Coord/balance, No Numbness/Tingling Skin: Yes Other (wound); No Pruritus Physical Exam General: Alert, Oriented X3, Cooperative HEENT: Atraumatic, PERRLA Lungs: Clear to auscultation, Normal air movement Heart: Other (tachy) Abdomen: Soft, Other (j tube in place, old drain site bilious drainage) Extremities: Other (le edema) Neuro: Normal speech Psych/Mental Status: Mental status NL, Mood NL Vitals VITALS Vital Signs Date Time Temp Pulse Resp B/P (MAP) Pulse Ox O2 Delivery O2 Flow Rate FiO2 11/10/19 11:15 97.9 114 20 108/83 (91) 97 Room Air 97.9 Labs Labs Laboratory Tests Test 11/08/19 17:12 11/08/19 20:15 11/09/19 08:26 11/09/19 12:04 Glucose (Fingerstick) 109 mg/dL (70-99) 113 mg/dL (70-99) 95 mg/dL (70-99) 137 mg/dL (70-99) Test 11/09/19 16:56 11/09/19 20:49 11/10/19 07:40 11/10/19 08:25 Glucose (Fingerstick) 122 mg/dL (70-99) 90 mg/dL (70-99) 88 mg/dL (70-99) White Blood Count 12.5 x10^3/uL (4.0-11.0) Red Blood Count 3.27 x10^6/uL (4.30-5.70) Hemoglobin 8.6 g/dL (13.0-17.5) Hematocrit 27.2 % (39.0-53.0) Mean Corpuscular Volume 83 fL (79-100) Mean Corpuscular Hemoglobin 26 pg (25-35) Mean Corpuscular Hemoglobin Concent 32 g/dL (31-37) Red Cell Distribution Width 20.8 % (11.5-14.5) Platelet Count 446 x10^3/uL (140-400) Neutrophils (%) (Auto) 84 % (31-73) Lymphocytes (%) (Auto) 8 % (24-48) Monocytes (%) (Auto) 7 % (0-9) Eosinophils (%) (Auto) 0 % (0-3) Basophils (%) (Auto) 0 % (0-3) Neutrophils # (Auto) 10.6 x10^3/uL (1.8-7.7) Lymphocytes # (Auto) 1.0 x10^3/uL (1.0-4.8) Monocytes # (Auto) 0.9 x10^3/uL (0.0-1.1) Eosinophils # (Auto) 0.0 x10^3/uL (0.0-0.7) Basophils # (Auto) 0.0 x10^3/uL (0.0-0.2) Sodium Level 137 mmol/L (136-145) Potassium Level 3.9 mmol/L (3.5-5.1) Chloride Level 102 mmol/L (98-107) Carbon Dioxide Level 29 mmol/L (21-32) Anion Gap 6 (6-14) Blood Urea Nitrogen 20 mg/dL (8-26) Creatinine 1.2 mg/dL (0.7-1.3) Estimated GFR (Cockcroft-Gault) 77.9 BUN/Creatinine Ratio 17 (6-20) Glucose Level 114 mg/dL (70-99) Calcium Level 7.2 mg/dL (8.5-10.1) Total Bilirubin 1.3 mg/dL (0.2-1.0) Aspartate Amino Transf (AST/SGOT) 28 U/L (15-37) Alanine Aminotransferase (ALT/SGPT) 33 U/L (16-63) Alkaline Phosphatase 801 U/L (46-116) Total Protein 6.9 g/dL (6.4-8.2) Albumin 1.2 g/dL (3.4-5.0) Albumin/Globulin Ratio 0.2 (1.0-1.7) Test 11/10/19 11:36 Glucose (Fingerstick) 122 mg/dL (70-99) Laboratory Tests Test 11/09/19 16:56 11/09/19 20:49 11/10/19 07:40 11/10/19 08:25 Glucose (Fingerstick) 122 mg/dL (70-99) 90 mg/dL (70-99) 88 mg/dL (70-99) White Blood Count 12.5 x10^3/uL (4.0-11.0) Red Blood Count 3.27 x10^6/uL (4.30-5.70) Hemoglobin 8.6 g/dL (13.0-17.5) Hematocrit 27.2 % (39.0-53.0) Mean Corpuscular Volume 83 fL (79-100) Mean Corpuscular Hemoglobin 26 pg (25-35) Mean Corpuscular Hemoglobin Concent 32 g/dL (31-37) Red Cell Distribution Width 20.8 % (11.5-14.5) Platelet Count 446 x10^3/uL (140-400) Neutrophils (%) (Auto) 84 % (31-73) Lymphocytes (%) (Auto) 8 % (24-48) Monocytes (%) (Auto) 7 % (0-9) Eosinophils (%) (Auto) 0 % (0-3) Basophils (%) (Auto) 0 % (0-3) Neutrophils # (Auto) 10.6 x10^3/uL (1.8-7.7) Lymphocytes # (Auto) 1.0 x10^3/uL (1.0-4.8) Monocytes # (Auto) 0.9 x10^3/uL (0.0-1.1) Eosinophils # (Auto) 0.0 x10^3/uL (0.0-0.7) Basophils # (Auto) 0.0 x10^3/uL (0.0-0.2) Sodium Level 137 mmol/L (136-145) Potassium Level 3.9 mmol/L (3.5-5.1) Chloride Level 102 mmol/L (98-107) Carbon Dioxide Level 29 mmol/L (21-32) Anion Gap 6 (6-14) Blood Urea Nitrogen 20 mg/dL (8-26) Creatinine 1.2 mg/dL (0.7-1.3) Estimated GFR (Cockcroft-Gault) 77.9 BUN/Creatinine Ratio 17 (6-20) Glucose Level 114 mg/dL (70-99) Calcium Level 7.2 mg/dL (8.5-10.1) Total Bilirubin 1.3 mg/dL (0.2-1.0) Aspartate Amino Transf (AST/SGOT) 28 U/L (15-37) Alanine Aminotransferase (ALT/SGPT) 33 U/L (16-63) Alkaline Phosphatase 801 U/L (46-116) Total Protein 6.9 g/dL (6.4-8.2) Albumin 1.2 g/dL (3.4-5.0) Albumin/Globulin Ratio 0.2 (1.0-1.7) Test 11/10/19 11:36 Glucose (Fingerstick) 122 mg/dL (70-99) Assessment/Plan Assessment/Plan will review with Dr Dawson malnutrition, DVTs, C diff KARLA DAWSON MD 11/10/19 1632: CONSULT Assessment/Plan Assessment/Plan Pt seen and examined. Agree with Ms. Melgoza's note Pt with c/o BLE swelling. Severe malnutrition and DVTs drainage from abd wall secondary to cholecystostomy nutritional support is main point and may be done orally or enterally. Would favor against TPN as pt with increased risk of DVT would not favor CT a/p given unlikely to be significantly different then previous and pt has had extensive number of previous CT Thanks for consult! MAXIMILIANO MELGOZA [employer] Nov 10, 2019 12:45 KARLA DAWSON MD Nov 10, 2019 16:32
--- NOTE | 2019-11-10 19:20 | NUR ---
Patient's J-tube is clog. Dr. Dawson order : Flush J-tube with Cola to unclog. Administered the first 5ml at 1730 hours. Relayed information to Night Nurse.
--- NOTE | 2019-11-10 20:23 | NUR ---
Charted Telemetry cardiac rhythm on wrong chart.
[2019-11-10] MEDS: ALPRAZolam 0.5 MG TABLET PO SCH (21:39)
[2019-11-11 03:00] VITALS: BP 120/88
[2019-11-11] MEDS: oxyCODONE IR 5 MG TABLET PO PRN ×2 (03:59→23:50)
[2019-11-11] MEDS: PANTOPRAZOLE 40 MG TABLET.DR. PO SCH (05:04)
[2019-11-11 07:00] VITALS: BP 112/80
[2019-11-11] MEDS: LACTOBACILLUS RHAMNOSUS GG 1 CAPSULE. PO SCH ×2 (07:50→20:38)
[2019-11-11] MEDS: FERROUS SULFATE 325 MG TABLET. PO SCH ×2 (07:50→18:01)
[2019-11-11] MEDS: APIXABAN 5 MG TABLET. PO SCH ×2 (07:51→20:38)
[2019-11-11] MEDS: VANCOMYCIN 125 MG/2.5 ML ORAL SOLUTION. PO SCH ×4 (07:57→20:38)
--- NOTE | 2019-11-11 08:57 | PDOC ---
PROGRESS NOTES Chief Complaint Chief Complaint Bilateral DVT Neutropenia and bandemia, recent C diff infection Encephalopathy secondary to medication, currently resolved Diarrhea. Recurrent C diff? C diff Diarrhea on last hospital stay, completed a 10 day course of antibiotics. H/o recent Severe pancreatitis s/p ex-lap with pancreatic necrosectomy, cholecystostomy tube placement, gastrostomy tube placement, tracheostomy placement, 5 drains, 1.5L ascites drained - likely gallstone Status post tracheostomy - reversed, recovered Severe protein calorie malnutrition - started G-tube feeds Physician deconditioning - PT OT followed History of Hepatitis B j tube replaced by IR during last hospitalization but tolerating TFs at night well. Cont vancomycin for two more days at discharge to complete 10 day course hold lasix BB and metformin at dc. a1c 7%. Plan: Continue Eliquis Will hold trazodone Remeron gabapentin and BuSpar as requested by patient's who is at bedside today ID relationship consultant recommendations noted and appreciated, recommendations from certified surgical technologist also noted and appreciated Given patient's report of shortness of breath and given his multiple medical problems recently we will send an echocardiogram, this will help us assess for ejection fraction and right heart strain pattern given the bilateral DVTs Continue oRal vancomycin and increase the dose as per recommendations from relationship consultant tube feeding may be causing diarrhea as well. will have dietary consult for advise, since the patient is having diarrhea, ID relationship consultant recommending TPN, will wait for dietary evaluation his lower extremity edema may be a consequence of his severe protein calorie malnutrition and also a consequence of his DVT, this seems to be improved reassurance has been provided to the patient and his at bedside reassess in the am History of Present Illness History of Present Illness History of Present Illness History of Present Illness Limited H&P since patient is not a very good historian. Patient is a 49-year-old gentleman with past medical history of GERD pancreatitis history of DVT who comes to the emergency department complaining of bilateral leg swelling. At the time of my visit the patient is lying in bed in no apparent distress, he seems to be had of hearing, he is not offering many details about the story and we were asked to admit due to results of Doppler ultrasound revealing bilateral DVTs. Apparently the patient had been on Coumadin before it is unclear at this point if the patient has been taking Coumadin [facility] Patient denies any headaches no blurred vision no strokelike symptoms no chest pain palpitations no shortness of breath has been reported. Patient denies abdominal pain no nausea vomiting or diarrhea. The patient certainly complains of discomfort over his bilateral extremities due to the edema. No other complaints were voiced, plan of care has been explained detail to the patient. Later in the day visited with nursing staff letting her concerned that patient may be having excessive sedation from his home medications that include trazodone and Remeron. Will place this on hold I have discussed this with nursing staff 11/08: Patient with recent admission to the hospital for C. difficile and still having diarrhea he had a significant bandemia which could be a consequence of ongoing C. difficile infection. Today feels much better and seems much more awake compared to yesterday after washout of his medications as most likely has kept him quite sedated at home. I have encourage more protein intake plan of care explained detail to the patient and his and all of their concerns were addressed to the best of my ability Vitals Vitals Vital Signs Date Time Temp Pulse Resp B/P (MAP) Pulse Ox O2 Delivery O2 Flow Rate FiO2 11/11/19 07:00 97.5 104 17 112/80 (91) 99 Room Air 97.5 Physical Exam Physical Exam GENERAL: Thin, cachectic male in no acute distress, sleepy, but arousable, oriented. HEENT: Normocephalic, atraumatic. No thrush. NECK: Supple, no lymphadenopathy. LUNGS: Decreased breath sounds at the bases, otherwise clear. HEART: S1, S2. No gallops or murmurs. ABDOMEN: Distended, soft, nontender, fistula in place, GJ tube in place. EXTREMITIES: Edema, no cyanosis. DERMATOLOGIC: Warm, dry. 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 NEUROLOGIC: Alert, awake, answers a few questions. PSYCHIATRIC: Flat affect. DERMATOLOGIC: No generalized rash. General: Alert, Oriented X3, Cooperative Heart: Other (tachy) Lungs: Clear Abdomen: Soft, Other (j tube in place, old drain site bilious drainage) Extremities: Other (le edema) Labs LABS Laboratory Tests Test 11/10/19 11:36 11/10/19 16:37 11/11/19 07:32 Glucose (Fingerstick) 122 mg/dL (70-99) 95 mg/dL (70-99) 77 mg/dL (70-99) Review of Systems Review of Systems Pertinent as per HPI only pertinent for edema on the lower extremities otherwise 10 point review of system is negative Comment Review of Relevant I have reviewed the following items alexandra (where applicable) has been applied. Labs Laboratory Tests Test 11/09/19 12:04 11/09/19 16:56 11/09/19 20:49 11/10/19 07:40 Glucose (Fingerstick) 137 mg/dL (70-99) 122 mg/dL (70-99) 90 mg/dL (70-99) 88 mg/dL (70-99) Test 11/10/19 08:25 11/10/19 11:36 11/10/19 16:37 11/11/19 07:32 White Blood Count 12.5 x10^3/uL (4.0-11.0) Red Blood Count 3.27 x10^6/uL (4.30-5.70) Hemoglobin 8.6 g/dL (13.0-17.5) Hematocrit 27.2 % (39.0-53.0) Mean Corpuscular Volume 83 fL (79-100) Mean Corpuscular Hemoglobin 26 pg (25-35) Mean Corpuscular Hemoglobin Concent 32 g/dL (31-37) Red Cell Distribution Width 20.8 % (11.5-14.5) Platelet Count 446 x10^3/uL (140-400) Neutrophils (%) (Auto) 84 % (31-73) Lymphocytes (%) (Auto) 8 % (24-48) Monocytes (%) (Auto) 7 % (0-9) Eosinophils (%) (Auto) 0 % (0-3) Basophils (%) (Auto) 0 % (0-3) Neutrophils # (Auto) 10.6 x10^3/uL (1.8-7.7) Lymphocytes # (Auto) 1.0 x10^3/uL (1.0-4.8) Monocytes # (Auto) 0.9 x10^3/uL (0.0-1.1) Eosinophils # (Auto) 0.0 x10^3/uL (0.0-0.7) Basophils # (Auto) 0.0 x10^3/uL (0.0-0.2) Sodium Level 137 mmol/L (136-145) Potassium Level 3.9 mmol/L (3.5-5.1) Chloride Level 102 mmol/L (98-107) Carbon Dioxide Level 29 mmol/L (21-32) Anion Gap 6 (6-14) Blood Urea Nitrogen 20 mg/dL (8-26) Creatinine 1.2 mg/dL (0.7-1.3) Estimated GFR (Cockcroft-Gault) 77.9 BUN/Creatinine Ratio 17 (6-20) Glucose Level 114 mg/dL (70-99) Calcium Level 7.2 mg/dL (8.5-10.1) Total Bilirubin 1.3 mg/dL (0.2-1.0) Aspartate Amino Transf (AST/SGOT) 28 U/L (15-37) Alanine Aminotransferase (ALT/SGPT) 33 U/L (16-63) Alkaline Phosphatase 801 U/L (46-116) Total Protein 6.9 g/dL (6.4-8.2) Albumin 1.2 g/dL (3.4-5.0) Albumin/Globulin Ratio 0.2 (1.0-1.7) Glucose (Fingerstick) 122 mg/dL (70-99) 95 mg/dL (70-99) 77 mg/dL (70-99) Laboratory Tests Test 11/10/19 11:36 11/10/19 16:37 11/11/19 07:32 Glucose (Fingerstick) 122 mg/dL (70-99) 95 mg/dL (70-99) 77 mg/dL (70-99) Microbiology 11/08/19 Blood Culture - Preliminary, Resulted NO GROWTH AFTER 3 DAYS 11/07/19 Urine Culture - Final, Complete Medications Current Medications Ceftriaxone Sodium (Rocephin) 1 gm 1X ONCE IVP ; Start 11/08/19 at 00:00; Stop 11/08/19 at 01:23; Status DC Enoxaparin Sodium (Lovenox 80mg Syringe) 80 mg 1X ONCE SQ Last administered on 11/08/19at 02:43; Start 11/08/19 at 00:00; Stop 11/08/19 at 00:01; Status DC Ceftriaxone Sodium (Rocephin Im) 1 gm 1X ONCE IM Last administered on 11/08/19at 02:42; Start 11/08/19 at 01:45; Stop 11/08/19 at 01:46; Status DC Lorazepam (Ativan) 0.5 mg 1X ONCE PO Last administered on 11/08/19at 03:28; Start 11/08/19 at 03:15; Stop 11/08/19 at 03:16; Status DC Acetaminophen (Tylenol) 500 mg PRN Q6HRS PRN PO FEVER; Start 11/08/19 at 07:30 Alprazolam (Xanax) 0.5 mg HS PO Last administered on 11/10/19at 21:39; Start 11/08/19 at 21:00 Buspirone HCl (Buspar) 10 mg BIDACBL PO Last administered on 11/08/19at 10:54; Start 11/08/19 at 07:30; Stop 11/08/19 at 11:46; Status DC Ferrous Sulfate (Feosol) 325 mg BIDWMEALS PO Last administered on 11/11/19at 07:50; Start 11/08/19 at 08:00 Gabapentin (Neurontin) 100 mg TID PO Last administered on 11/08/19at 10:54; Start 11/08/19 at 09:00; Stop 11/08/19 at 11:46; Status DC Mirtazapine (Remeron) 15 mg QHS PO ; Start 11/08/19 at 21:00; Stop 11/08/19 at 17:19; Status DC Pantoprazole Sodium (Protonix) 40 mg DAILYAC PO Last administered on 11/11/19at 05:04; Start 11/08/19 at 08:00 Trazodone HCl (Desyrel) 50 mg QHS PO ; Start 11/08/19 at 21:00; Stop 11/08/19 at 17:19; Status DC Oxycodone HCl (Roxicodone) 15 mg PRN Q6HRS PRN PO PAIN Last administered on 11/11/19at 03:59; Start 11/08/19 at 07:45 Apixaban (Eliquis) 10 mg BID PO Last administered on 11/11/19at 07:51; Start 11/08/19 at 09:00; Stop 11/14/19 at 21:01 Apixaban (Eliquis) 5 mg BID PO ; Start 11/15/19 at 09:00 Info (Anti-Coagulation Monitoring By Pharmacy) 1 each PRN DAILY PRN MC SEE COMMENTS Last administered on 11/09/19at 10:37; Start 11/08/19 at 07:45 Vancomycin HCl (Vancomycin Oral Solution) 125 mg [id number] PO Last administered on 11/08/19at 20:48; Start 11/08/19 at 17:30; Stop 11/09/19 at 09:55; Status DC Vancomycin HCl (Vancomycin Oral Solution) 250 mg [id number] PO Last administered on 11/11/19at 07:57; Start 11/09/19 at 13:00 Lactobacillus Rhamnosus (Culturelle) 1 cap BID PO Last administered on 11/11/19at 07:50; Start 11/09/19 at 21:00 Piperacillin Sod/ Tazobactam Sod 3.375 gm/Sodium Chloride 50 ml @ 100 mls/hr Q6HRS IV Last administered on 11/10/19at 05:58; Start 11/09/19 at 18:00; Stop 11/10/19 at 11:45; Status DC Active Scripts Active Oxycodone Hcl Immed.release (Oxycodone Hcl) 15 Mg Tablet 15 Mg PO PRN Q6HRS PRN 5 Days Reported Remeron (Mirtazapine) 15 Mg Tablet 1 Tab PO QHS Buspirone Hcl 10 Mg Tablet 1 Tab PO BIDACBL Alprazolam 0.5 Mg Tablet 1 Tab PO HS Acetaminophen 500 Mg Tablet 1 Tab PO PRN Q6HRS PRN 15 Days Ferrous Sulfate 325 Mg Tablet 65 Mg PO BID Pantoprazole Sodium (Pantoprazole Sodium) 40 Mg Tablet.dr 40 Mg PO DAILYAC Trazodone Hcl 50 Mg Tablet 1 Tab PO QHS Gabapentin (Gabapentin) 100 Mg Capsule 100 Mg PO TID Vitals/I & O Vital Sign - Last 24 Hours 11/10/19 11/10/19 11/10/19 11/10/19 11:15 15:15 19:00 20:00 Temp 97.9 98.0 98.2 97.9 98.0 98.2 Pulse 114 119 16 Resp 20 20 20 B/P (MAP) 108/83 (91) 110/81 (91) 118/86 (97) Pulse Ox 97 96 97 O2 Delivery Room Air Room Air Room Air 11/10/19 11/10/19 11/10/19 7/28/20 21:39 22:39 23:00 03:00 Temp 97.9 97.5 97.9 97.5 Pulse 116 120 Resp 18 18 20 18 B/P (MAP) 125/98 (107) 120/88 (99) Pulse Ox 97 97 100 100 O2 Delivery Room Air Room Air Room Air Room Air 11/11/19 11/11/19 11/11/19 03:59 04:59 07:00 Temp 97.5 97.5 Pulse 104 Resp 18 18 17 B/P (MAP) 112/80 (91) Pulse Ox 100 100 99 O2 Delivery Room Air Room Air Room Air Intake and Output 11/10/19 11/10/19 11/11/19 15:00 23:00 07:00 Intake Total 370 ml 490 ml 840 ml Balance 370 ml 490 ml 840 ml Nutrition Consultation Dietary Evaluation: Recommendations by RD: Dietary education by RD, Increase Calorie Intake, Protein supplementation Comments: regular diet with thomas bid REC mvi q day Expected Outcomes/Goals: to meet >75% est nutr needs improved wound status Interpretation of weight loss: >7.5% in 3 months Malnutrition Findings: Weight Status: Appropriate Justicifation of Admission Dx: Justifications for Admission: Justification of Admission Dx: Yes Comminuty Aquired Pneumonia: Med-High Risk Pt Sepsis: Infection BRENDA JONAS MD Nov 11, 2019 08:57
--- NOTE | 2019-11-11 10:08 | EKG ---
[facility] [address] [place] [address] Test Date: 2019-11-08 Test Time: 12:13:11 Pat Name: CHRISTOPHER NEWSOME Department: Room: Gender: M [employer]: : 1970 Requested By: MARIA L LUJAN Order Number: [id number] Reading MD: Measurements Intervals [place] Rate: P: ND: QRS: QRSD: T: QT: QTc: Interpretive Statements
--- NOTE | 2019-11-11 10:42 | NUR ---
SW following. Discussed with RN, pt wanting to discharge home today. Dr. Penn is awaiting some lab results before deciding. SW asked Alexandria Carver RN to meet with pt to discuss home health, as pt declined home health when they arrived at his home after discharge last admission. SW will continue to follow.
[2019-11-11 11:00] VITALS: BP 112/78
[2019-11-11] MEDS: ANTI-COAG MONITOR BY PHARMACY. MC PRN (11:39)
--- NOTE | 2019-11-11 12:20 | PDOC ---
Infectious Disease Note Subjective Subjective Doing ok but abd/legs swollen. Still loose stool. Some better overall No F/c/s/n/V/SOA/rash Vital Sign Vital Signs Vital Signs Date Time Temp Pulse Resp B/P (MAP) Pulse Ox O2 Delivery O2 Flow Rate FiO2 11/11/19 07:00 97.5 104 17 112/80 (91) 99 Room Air 97.5 Physical Exam PHYSICAL EXAM GENERAL: Thin, cachectic male in no acute distress, in bed and eating HEENT: Normocephalic, atraumatic. No thrush. NECK: Supple, no lymphadenopathy. LUNGS: Decreased breath sounds at the bases, otherwise clear. HEART: S1, S2. No gallops or murmurs. ABDOMEN: Distended, soft, nontender, fistula in place, GJ tube in place. EXTREMITIES: Edema, no cyanosis. DERMATOLOGIC: Warm, dry. 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 NEUROLOGIC: Alert, awake, answers a few questions. PSYCHIATRIC: Flat affect. DERMATOLOGIC: No generalized rash. Labs Lab Laboratory Tests Test 11/10/19 16:37 11/11/19 07:32 11/11/19 11:55 Glucose (Fingerstick) 95 mg/dL (70-99) 77 mg/dL (70-99) 146 mg/dL (70-99) Micro Microbiology 11/08/19 Blood Culture - Preliminary, Resulted NO GROWTH AFTER 2 DAYS 11/07/19 Urine Culture - Final, Complete Objective Assessment 1. Bilateral lower extremity deep venous thrombosis 11/06 2. Clostridium difficile colitis 10/22 3. Leukocytosis with bandemia- better 4. Left basilar pleural effusion and consolidation, chronic. 5. History of severe pancreatitis, status post exploratory laparotomy with pancreatic necrosectomy, cholecystotomy tube placement, gastrostomy tube placement, tracheostomy placement, five drains. Ascitic fluid drained status post tracheostomy recovered, history of hepatitis B during last admission in 07/2019. 6. Severe protein malnutrition Plan Plan of Care 1. Continue p.o. vancomycin, increase the dose of 250 p.o. q.i.d. 2. Follow up blood cultures. 3. Hold zosyn as WBC has improved but only 3 doses and ? if WBC from DVT - clinically some better 4. Consult Gen Surg - ? need for Repeat - CT? Need TPN 5. Continue supportive care. Labs ordered but system was down so not drawn yet. D/w nursing D/w today - [phone] LE Dickinson MD Nov 11, 2019 12:20
--- NOTE | 2019-11-11 13:04 | PDOC ---
SURGICAL PROGRESS NOTE Subjective Patient states he feels bloated Vital Signs Vital Signs Date Time Temp Pulse Resp B/P (MAP) Pulse Ox O2 Delivery O2 Flow Rate FiO2 11/11/19 11:00 98.0 122 18 112/78 (89) 95 Room Air 98.0 I&O Intake and Output 11/11/19 07:00 Intake Total 1700 ml Balance 1700 ml Intake Oral 1700 ml # Voids 6 # Bowel Movements 8 PATIENT HAS A LEPE: No General: Alert, Oriented X3, Cooperative, mild distress Abdomen: Normal bowel sounds, Soft, Other (Moderately distended mildly tender in left lower quadrant) Labs Laboratory Tests Test 11/09/19 16:56 11/09/19 20:49 11/10/19 07:40 11/10/19 08:25 Glucose (Fingerstick) 122 mg/dL (70-99) 90 mg/dL (70-99) 88 mg/dL (70-99) White Blood Count 12.5 x10^3/uL (4.0-11.0) Red Blood Count 3.27 x10^6/uL (4.30-5.70) Hemoglobin 8.6 g/dL (13.0-17.5) Hematocrit 27.2 % (39.0-53.0) Mean Corpuscular Volume 83 fL (79-100) Mean Corpuscular Hemoglobin 26 pg (25-35) Mean Corpuscular Hemoglobin Concent 32 g/dL (31-37) Red Cell Distribution Width 20.8 % (11.5-14.5) Platelet Count 446 x10^3/uL (140-400) Neutrophils (%) (Auto) 84 % (31-73) Lymphocytes (%) (Auto) 8 % (24-48) Monocytes (%) (Auto) 7 % (0-9) Eosinophils (%) (Auto) 0 % (0-3) Basophils (%) (Auto) 0 % (0-3) Neutrophils # (Auto) 10.6 x10^3/uL (1.8-7.7) Lymphocytes # (Auto) 1.0 x10^3/uL (1.0-4.8) Monocytes # (Auto) 0.9 x10^3/uL (0.0-1.1) Eosinophils # (Auto) 0.0 x10^3/uL (0.0-0.7) Basophils # (Auto) 0.0 x10^3/uL (0.0-0.2) Sodium Level 137 mmol/L (136-145) Potassium Level 3.9 mmol/L (3.5-5.1) Chloride Level 102 mmol/L (98-107) Carbon Dioxide Level 29 mmol/L (21-32) Anion Gap 6 (6-14) Blood Urea Nitrogen 20 mg/dL (8-26) Creatinine 1.2 mg/dL (0.7-1.3) Estimated GFR (Cockcroft-Gault) 77.9 BUN/Creatinine Ratio 17 (6-20) Glucose Level 114 mg/dL (70-99) Calcium Level 7.2 mg/dL (8.5-10.1) Total Bilirubin 1.3 mg/dL (0.2-1.0) Aspartate Amino Transf (AST/SGOT) 28 U/L (15-37) Alanine Aminotransferase (ALT/SGPT) 33 U/L (16-63) Alkaline Phosphatase 801 U/L (46-116) Total Protein 6.9 g/dL (6.4-8.2) Albumin 1.2 g/dL (3.4-5.0) Albumin/Globulin Ratio 0.2 (1.0-1.7) Test 11/10/19 11:36 11/10/19 16:37 11/11/19 07:32 11/11/19 11:55 Glucose (Fingerstick) 122 mg/dL (70-99) 95 mg/dL (70-99) 77 mg/dL (70-99) 146 mg/dL (70-99) Laboratory Tests Test 11/10/19 16:37 11/11/19 07:32 11/11/19 11:55 Glucose (Fingerstick) 95 mg/dL (70-99) 77 mg/dL (70-99) 146 mg/dL (70-99) Assessment/Plan Currently being treated C. difficile on oral vancomycin Continue medical care supportive care Justicifation of Admission Dx: Justifications for Admission: Justification of Admission Dx: Yes Comminuty Aquired Pneumonia: Med-High Risk Pt Sepsis: Infection JERSON NIELSEN MD Nov 11, 2019 13:04
[2019-11-11 13:36] LABS: BASO % 0 % (0-3); EOS % 0 % (0-3); HEMATOCRIT 27.5 % (39.0-53.0); LYMPH # 0.8 x10^3/uL (1.0-4.8); LYMPH % 7 % (24-48); MEAN CORPUSCULAR HEMOGLOBIN 27 pg (25-35); MEAN CORPUSCULAR HGB CONC 33 g/dL (31-37); MEAN CORPUSCULAR VOLUME 83 fL (79-100); MONO # 0.7 x10^3/uL (0.0-1.1); MONO % 7 % (0-9); NEUT # 9.9 x10^3/uL (1.8-7.7); NEUT % 86 % (31-73); PLATELET COUNT 506 x10^3/uL (140-400); RED BLOOD COUNT 3.31 x10^6/uL (4.30-5.70); RED CELL DISTRIBUTION WIDTH 20.4 % (11.5-14.5); WHITE BLOOD COUNT 11.5 x10^3/uL (4.0-11.0)
[2019-11-11 14:02] LABS: CALCIUM 7.2 mg/dL (8.5-10.1); CREATININE 1.1 mg/dL (0.7-1.3); GFR 86.1; POTASSIUM 3.6 mmol/L (3.5-5.1)
[2019-11-11 15:00] VITALS: BP 130/94
[2019-11-11 19:00] VITALS: BP 115/90
[2019-11-11] MEDS: ALPRAZolam 0.5 MG TABLET PO SCH (20:38)
[2019-11-11 23:00] VITALS: BP 116/86
[2019-11-12 03:00] VITALS: BP 112/84
[2019-11-12] MEDS: oxyCODONE IR 5 MG TABLET PO PRN (05:59)
[2019-11-12 07:56] VITALS: BP 108/70
--- NOTE | 2019-11-12 08:39 | PDOC ---
Infectious Disease Note Subjective Subjective Doing ok but abd/legs swollen. Some improved stool. Some better overall but frustrated j tube not working No F/c/s/n/V/SOA/rash ROS ROS o/w neg Vital Sign Vital Signs Vital Signs Date Time Temp Pulse Resp B/P (MAP) Pulse Ox O2 Delivery O2 Flow Rate FiO2 11/12/19 07:56 97.7 103 18 108/70 (83) 99 Room Air 97.7 Physical Exam PHYSICAL EXAM GENERAL: Thin, cachectic male in no acute distress, in bed and eating. Looks comfortable HEENT: Normocephalic, atraumatic. No thrush. NECK: Supple, no lymphadenopathy. LUNGS: Decreased breath sounds at the bases, otherwise clear. HEART: S1, S2. No gallops or murmurs. ABDOMEN: Distended, soft, nontender, fistula in place, GJ tube in place. EXTREMITIES: Edema, no cyanosis. DERMATOLOGIC: Warm, dry. 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 NEUROLOGIC: Alert, awake, answers a few questions. PSYCHIATRIC: Flat affect. DERMATOLOGIC: No generalized rash. Labs Lab Laboratory Tests Test 11/11/19 11:55 11/11/19 13:30 11/11/19 16:26 11/12/19 07:21 Glucose (Fingerstick) 146 mg/dL (70-99) 108 mg/dL (70-99) 73 mg/dL (70-99) White Blood Count 11.5 x10^3/uL (4.0-11.0) Red Blood Count 3.31 x10^6/uL (4.30-5.70) Hemoglobin 9.0 g/dL (13.0-17.5) Hematocrit 27.5 % (39.0-53.0) Mean Corpuscular Volume 83 fL (79-100) Mean Corpuscular Hemoglobin 27 pg (25-35) Mean Corpuscular Hemoglobin Concent 33 g/dL (31-37) Red Cell Distribution Width 20.4 % (11.5-14.5) Platelet Count 506 x10^3/uL (140-400) Neutrophils (%) (Auto) 86 % (31-73) Lymphocytes (%) (Auto) 7 % (24-48) Monocytes (%) (Auto) 7 % (0-9) Eosinophils (%) (Auto) 0 % (0-3) Basophils (%) (Auto) 0 % (0-3) Neutrophils # (Auto) 9.9 x10^3/uL (1.8-7.7) Lymphocytes # (Auto) 0.8 x10^3/uL (1.0-4.8) Monocytes # (Auto) 0.7 x10^3/uL (0.0-1.1) Eosinophils # (Auto) 0.0 x10^3/uL (0.0-0.7) Basophils # (Auto) 0.0 x10^3/uL (0.0-0.2) Sodium Level 133 mmol/L (136-145) Potassium Level 3.6 mmol/L (3.5-5.1) Chloride Level 100 mmol/L (98-107) Carbon Dioxide Level 27 mmol/L (21-32) Anion Gap 6 (6-14) Blood Urea Nitrogen 19 mg/dL (8-26) Creatinine 1.1 mg/dL (0.7-1.3) Estimated GFR (Cockcroft-Gault) 86.1 Glucose Level 154 mg/dL (70-99) Calcium Level 7.2 mg/dL (8.5-10.1) Micro Microbiology 11/08/19 Blood Culture - Preliminary, Resulted NO GROWTH AFTER 2 DAYS 11/07/19 Urine Culture - Final, Complete Objective Assessment 1. Bilateral lower extremity deep venous thrombosis 11/06 2. Clostridium difficile colitis 10/22 3. Leukocytosis with bandemia- better off abx 4. Left basilar pleural effusion and consolidation, chronic. 5. History of severe pancreatitis, status post exploratory laparotomy with pancreatic necrosectomy, cholecystotomy tube placement, gastrostomy tube placement, tracheostomy placement, five drains. Ascitic fluid drained status post tracheostomy recovered, history of hepatitis B during last admission in 07/2019. 6. Severe protein malnutrition Plan Plan of Care 1. Continue p.o. vancomycin, decrease the dose of 125 mg p.o. q.i.d. would treat for 10 more days 2. Gen Surg - ? tube malfunction - d/w nursing 3. Continue supportive care. D/w previously - [phone] LE Dickinson MD Nov 12, 2019 08:39
--- NOTE | 2019-11-12 09:05 | PDOC ---
[facility] PROGRESS NOTE Chief Complaint Chief Complaint Bilateral DVT Neutropenia and bandemia, recent C. diff infection Encephalopathy secondary to medication, currently resolved Diarrhea. Recurrent C. diff? C. diff Diarrhea on last hospital stay, completed a 10 day course of antibiotics. H/o recent Severe pancreatitis s/p ex-lap with pancreatic necrosectomy, cholecystostomy tube placement, gastrostomy tube placement, tracheostomy placement, 5 drains, 1.5L ascites drained - likely gallstone Status post tracheostomy - reversed, recovered Severe protein calorie malnutrition - started G-tube feeds Physical deconditioning - PT OT followed History of Hepatitis B J tube replaced by IR during last hospitalization but tolerating TFs at night well. History of Present Illness History of Present Illness History of Present Illness History of Present Illness 11/12/2019 Patient seen and examined Ostomy in RUQ and PEG tube in LUQ In bed, in NAD, eating breakfast PO Complaining of abdominal pain and insomnia Chart reviewed Discussed with RN Discussed with Limited H&P since patient is not a very good historian. Patient is a 49-year-old gentleman with past medical history of GERD pancreatitis history of DVT who comes to the emergency department complaining of bilateral leg swelling. At the time of my visit the patient is lying in bed in no apparent distress, he seems to be had of hearing, he is not offering many details about the story and we were asked to admit due to results of Doppler ultrasound revealing bilateral DVTs. Apparently the patient had been on Coumadin before it is unclear at this point if the patient has been taking Coumadin prior to this visit to the emergency department. Patient denies any headaches no blurred vision no strokelike symptoms no chest pain palpitations no shortness of breath has been reported. Patient denies abdominal pain no nausea vomiting or diarrhea. The p atient certainly complains of discomfort over his bilateral extremities due to the edema. No other complaints were voiced, plan of care has been explained detail to the patient. Later in the day visited with nursing staff letting her concerned that patient may be having excessive sedation from his home medications that include trazodone and Remeron. Will place this on hold I have discussed this with nursing staff 11/08: Patient with recent admission to the hospital for C. difficile and still having diarrhea he had a significant bandemia which could be a consequence of ongoing C. difficile infection. Today feels much better and seems much more awake compared to yesterday after washout of his medications as most likely has kept him quite sedated at home. I have encourage more protein intake plan of care explained detail to the patient and his and all of their concerns were addressed to the best of my ability Vitals/I&O Vitals/I&O: Vital Signs Date Time Temp Pulse Resp B/P (MAP) Pulse Ox O2 Delivery O2 Flow Rate FiO2 11/12/19 07:56 97.7 103 18 108/70 (83) 99 Room Air 97.7 I & O 11/11/19 11/11/19 11/12/19 15:00 23:00 07:00 Intake Total 300 ml 400 ml Output Total 150 ml Balance 150 ml 400 ml Physical Exam Physical Exam: GENERAL: Thin, cachectic male in no acute distress, in bed and eating HEENT: Normocephalic, atraumatic. No thrush. NECK: Supple, no lymphadenopathy. LUNGS: Decreased breath sounds at the bases, otherwise clear. HEART: S1, S2. No gallops or murmurs. ABDOMEN: Distended, soft, nontender, fistula in place, GJ tube in place. EXTREMITIES: Edema, no cyanosis. DERMATOLOGIC: Warm, dry. 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 NEUROLOGIC: Alert, awake, answers questions. PSYCHIATRIC: Flat affect. DERMATOLOGIC: No generalized rash. General: Alert, Oriented X3, Cooperative, mild distress Heart: Other (tachy) Lungs: Clear Abdomen: Normal bowel sounds, Soft, Other (Moderately distended mildly tender in left lower quadrant) Extremities: Other (le edema) Skin: No rashes Labs Labs: Laboratory Tests Test 11/11/19 11:55 11/11/19 13:30 11/11/19 16:26 11/12/19 07:21 Glucose (Fingerstick) 146 mg/dL (70-99) 108 mg/dL (70-99) 73 mg/dL (70-99) White Blood Count 11.5 x10^3/uL (4.0-11.0) Red Blood Count 3.31 x10^6/uL (4.30-5.70) Hemoglobin 9.0 g/dL (13.0-17.5) Hematocrit 27.5 % (39.0-53.0) Mean Corpuscular Volume 83 fL (79-100) Mean Corpuscular Hemoglobin 27 pg (25-35) Mean Corpuscular Hemoglobin Concent 33 g/dL (31-37) Red Cell Distribution Width 20.4 % (11.5-14.5) Platelet Count 506 x10^3/uL (140-400) Neutrophils (%) (Auto) 86 % (31-73) Lymphocytes (%) (Auto) 7 % (24-48) Monocytes (%) (Auto) 7 % (0-9) Eosinophils (%) (Auto) 0 % (0-3) Basophils (%) (Auto) 0 % (0-3) Neutrophils # (Auto) 9.9 x10^3/uL (1.8-7.7) Lymphocytes # (Auto) 0.8 x10^3/uL (1.0-4.8) Monocytes # (Auto) 0.7 x10^3/uL (0.0-1.1) Eosinophils # (Auto) 0.0 x10^3/uL (0.0-0.7) Basophils # (Auto) 0.0 x10^3/uL (0.0-0.2) Sodium Level 133 mmol/L (136-145) Potassium Level 3.6 mmol/L (3.5-5.1) Chloride Level 100 mmol/L (98-107) Carbon Dioxide Level 27 mmol/L (21-32) Anion Gap 6 (6-14) Blood Urea Nitrogen 19 mg/dL (8-26) Creatinine 1.1 mg/dL (0.7-1.3) Estimated GFR (Cockcroft-Gault) 86.1 Glucose Level 154 mg/dL (70-99) Calcium Level 7.2 mg/dL (8.5-10.1) Review of Systems Review of Systems: ABDOMEN: Complaining of abdominal pain. NEUROLOGIC: Complaining of difficulty sleeping. Assessment and Plan Assessmemt and Plan ASSESSMENT Bilateral DVT Neutropenia and bandemia, recent C. diff infection Encephalopathy secondary to medication, currently resolved Diarrhea. Recurrent C. diff? C. diff Diarrhea on last hospital stay, completed a 10 day course of antibiotics. H/o recent Severe pancreatitis s/p ex-lap with pancreatic necrosectomy, cholecystostomy tube placement, gastrostomy tube placement, tracheostomy placement, 5 drains, 1.5L ascites drained - likely gallstone Status post tracheostomy - reversed, recovered Severe protein calorie malnutrition - started G-tube feeds Physical deconditioning - PT OT followed History of Hepatitis B J tube replaced by IR during last hospitalization but tolerating TFs at night well. PLAN Continue Eliquis Appreciate subspecialist input Continue oral vancomycin Restoril for insomnia Wound care Encourage PO intake DVT prophylaxis PT/OT Full code Discharge disposition pending Comment Review of Relevant I have reviewed the following items laexandra (where applicable) has been applied. Justicifation of Admission Dx: Justifications for Admission: Justification of Admission Dx: Yes Comminuty Aquired Pneumonia: Med-High Risk Pt Sepsis: Infection JUSTIN WORKMAN III DO Nov 12, 2019 09:05
--- NOTE | 2019-11-12 10:23 | NUR ---
SW following. Discussed with RN, pt not doing to well today. Pt not ready to give up, so doesn't want hospice per Dr. Quiñonez. Possibility of home health at discharge, family wants to decide. SW will continue to follow.
[2019-11-12] MEDS: LACTOBACILLUS RHAMNOSUS GG 1 CAPSULE. PO SCH ×2 (10:44→23:15)
[2019-11-12] MEDS: FERROUS SULFATE 325 MG TABLET. PO SCH ×2 (10:44→17:00)
[2019-11-12] MEDS: PANTOPRAZOLE 40 MG TABLET.DR. PO SCH (10:44)
[2019-11-12] MEDS: APIXABAN 5 MG TABLET. PO SCH ×2 (10:44→23:15)
[2019-11-12] MEDS: VANCOMYCIN 125 MG/2.5 ML ORAL SOLUTION. PO SCH ×4 (10:45→23:16)
[2019-11-12 11:00] VITALS: BP 107/78
--- NOTE | 2019-11-12 13:56 | PDOC ---
SURGICAL PROGRESS NOTE Subjective Pt with c/o abd bloating, elevating legs, some SOA Vital Signs Vital Signs Date Time Temp Pulse Resp B/P (MAP) Pulse Ox O2 Delivery O2 Flow Rate FiO2 11/12/19 11:00 97.8 115 18 107/78 (88) 100 Room Air 97.8 I&O Intake and Output 11/12/19 07:00 Intake Total 700 ml Output Total 150 ml Balance 550 ml Intake Oral 700 ml Urine/Stool Mix 150 ml # Voids 5 General: Alert, Oriented X3, Cooperative, mild distress Abdomen: Soft, Other (mild diffuse TTP, diffuse distention) Labs Laboratory Tests Test 11/10/19 16:37 11/11/19 07:32 11/11/19 11:55 11/11/19 13:30 Glucose (Fingerstick) 95 mg/dL (70-99) 77 mg/dL (70-99) 146 mg/dL (70-99) White Blood Count 11.5 x10^3/uL (4.0-11.0) Red Blood Count 3.31 x10^6/uL (4.30-5.70) Hemoglobin 9.0 g/dL (13.0-17.5) Hematocrit 27.5 % (39.0-53.0) Mean Corpuscular Volume 83 fL (79-100) Mean Corpuscular Hemoglobin 27 pg (25-35) Mean Corpuscular Hemoglobin Concent 33 g/dL (31-37) Red Cell Distribution Width 20.4 % (11.5-14.5) Platelet Count 506 x10^3/uL (140-400) Neutrophils (%) (Auto) 86 % (31-73) Lymphocytes (%) (Auto) 7 % (24-48) Monocytes (%) (Auto) 7 % (0-9) Eosinophils (%) (Auto) 0 % (0-3) Basophils (%) (Auto) 0 % (0-3) Neutrophils # (Auto) 9.9 x10^3/uL (1.8-7.7) Lymphocytes # (Auto) 0.8 x10^3/uL (1.0-4.8) Monocytes # (Auto) 0.7 x10^3/uL (0.0-1.1) Eosinophils # (Auto) 0.0 x10^3/uL (0.0-0.7) Basophils # (Auto) 0.0 x10^3/uL (0.0-0.2) Sodium Level 133 mmol/L (136-145) Potassium Level 3.6 mmol/L (3.5-5.1) Chloride Level 100 mmol/L (98-107) Carbon Dioxide Level 27 mmol/L (21-32) Anion Gap 6 (6-14) Blood Urea Nitrogen 19 mg/dL (8-26) Creatinine 1.1 mg/dL (0.7-1.3) Estimated GFR (Cockcroft-Gault) 86.1 Glucose Level 154 mg/dL (70-99) Calcium Level 7.2 mg/dL (8.5-10.1) Test 11/11/19 16:26 11/12/19 07:21 11/12/19 12:10 Glucose (Fingerstick) 108 mg/dL (70-99) 73 mg/dL (70-99) 104 mg/dL (70-99) Laboratory Tests Test 11/11/19 16:26 11/12/19 07:21 11/12/19 12:10 Glucose (Fingerstick) 108 mg/dL (70-99) 73 mg/dL (70-99) 104 mg/dL (70-99) Problem List pancreatitis will ask pulm to evaluate, given SOA and known DVT will ask IR to assess GJ tube for function nutritional replacement important Justicifation of Admission Dx: Justifications for Admission: Justification of Admission Dx: Yes Comminuty Aquired Pneumonia: Med-High Risk Pt Sepsis: Infection KARLA CALL MD Nov 12, 2019 13:56
[2019-11-12 15:59] VITALS: BP 123/88
[2019-11-12 19:00] VITALS: BP 115/88
[2019-11-12] MEDS: ALPRAZolam 0.5 MG TABLET PO SCH (21:00)
[2019-11-12] MEDS: TEMAZEPAM 15 MG CAPSULE PO PRN (23:15)
[2019-11-13] MEDS: oxyCODONE IR 5 MG TABLET PO PRN ×2 (00:26→11:01)
[2019-11-13 07:00] VITALS: BP 107/82
[2019-11-13] MEDS ORDERED: IOHEXOL 350 MG/ML 100 ML VIAL. IV ONE (08:15)
[2019-11-13] MEDS ORDERED: CONTRAST GIVEN. MC PRN ×2 (08:30→09:15)
[2019-11-13] MEDS ORDERED: fentaNYL PF VIAL 100 MCG/2 ML VIAL ONE (08:43)
[2019-11-13] MEDS ORDERED: IOHEXOL 240 MG/ML 50ML VIAL. ONE (08:45)
[2019-11-13] MEDS ORDERED: IOHEXOL 240 MG/ML 50ML VIAL. PO ONE (09:00)
[2019-11-13] MEDS ORDERED: fentaNYL PF VIAL 100 MCG/2 ML VIAL IV ONE (09:00)
--- NOTE | 2019-11-13 09:31 | PDOC ---
SURGICAL PROGRESS NOTE Subjective down in IR for j tube exchange nutrition was done Vital Signs Vital Signs Date Time Temp Pulse Resp B/P (MAP) Pulse Ox O2 Delivery O2 Flow Rate FiO2 11/13/19 07:00 98.1 105 18 107/82 (90) 95 Room Air 98.1 I&O Intake and Output 11/13/19 07:00 Intake Total 300 ml Balance 300 ml Intake Oral 300 ml # Bowel Movements 5 Labs Laboratory Tests Test 11/11/19 11:55 11/11/19 13:30 11/11/19 16:26 11/11/19 20:43 Glucose (Fingerstick) 146 mg/dL (70-99) 108 mg/dL (70-99) 106 mg/dL (70-99) White Blood Count 11.5 x10^3/uL (4.0-11.0) Red Blood Count 3.31 x10^6/uL (4.30-5.70) Hemoglobin 9.0 g/dL (13.0-17.5) Hematocrit 27.5 % (39.0-53.0) Mean Corpuscular Volume 83 fL (79-100) Mean Corpuscular Hemoglobin 27 pg (25-35) Mean Corpuscular Hemoglobin Concent 33 g/dL (31-37) Red Cell Distribution Width 20.4 % (11.5-14.5) Platelet Count 506 x10^3/uL (140-400) Neutrophils (%) (Auto) 86 % (31-73) Lymphocytes (%) (Auto) 7 % (24-48) Monocytes (%) (Auto) 7 % (0-9) Eosinophils (%) (Auto) 0 % (0-3) Basophils (%) (Auto) 0 % (0-3) Neutrophils # (Auto) 9.9 x10^3/uL (1.8-7.7) Lymphocytes # (Auto) 0.8 x10^3/uL (1.0-4.8) Monocytes # (Auto) 0.7 x10^3/uL (0.0-1.1) Eosinophils # (Auto) 0.0 x10^3/uL (0.0-0.7) Basophils # (Auto) 0.0 x10^3/uL (0.0-0.2) Sodium Level 133 mmol/L (136-145) Potassium Level 3.6 mmol/L (3.5-5.1) Chloride Level 100 mmol/L (98-107) Carbon Dioxide Level 27 mmol/L (21-32) Anion Gap 6 (6-14) Blood Urea Nitrogen 19 mg/dL (8-26) Creatinine 1.1 mg/dL (0.7-1.3) Estimated GFR (Cockcroft-Gault) 86.1 Glucose Level 154 mg/dL (70-99) Calcium Level 7.2 mg/dL (8.5-10.1) Test 11/12/19 07:21 11/12/19 12:10 11/12/19 16:30 11/12/19 21:43 Glucose (Fingerstick) 73 mg/dL (70-99) 104 mg/dL (70-99) 113 mg/dL (70-99) 91 mg/dL (70-99) Test 11/13/19 07:52 Glucose (Fingerstick) 69 mg/dL (70-99) Laboratory Tests Test 11/12/19 12:10 11/12/19 16:30 11/12/19 21:43 11/13/19 07:52 Glucose (Fingerstick) 104 mg/dL (70-99) 113 mg/dL (70-99) 91 mg/dL (70-99) 69 mg/dL (70-99) Justicifation of Admission Dx: Justifications for Admission: Justification of Admission Dx: Yes Comminuty Aquired Pneumonia: Med-High Risk Pt Sepsis: Infection MAXIMILIANO [employer]EN[employer]G [employer] Nov 13, 2019 09:31
[2019-11-13 11:00] VITALS: BP 109/78
[2019-11-13] MEDS: APIXABAN 5 MG TABLET. PO SCH ×2 (11:00→21:32)
[2019-11-13] MEDS: LACTOBACILLUS RHAMNOSUS GG 1 CAPSULE. PO SCH ×2 (11:00→21:31)
[2019-11-13] MEDS: FERROUS SULFATE 325 MG TABLET. PO SCH ×2 (11:00→16:09)
[2019-11-13] MEDS: PANTOPRAZOLE 40 MG TABLET.DR. PO SCH (11:00)
[2019-11-13] MEDS: VANCOMYCIN 125 MG/2.5 ML ORAL SOLUTION. PO SCH ×4 (11:01→21:32)
[2019-11-13] MEDS ORDERED: MORPHINE SULFATE 2 MG/ML VIAL. IV PRN (11:30)
[2019-11-13 11:55] LABS: BASO % 0 % (0-3); EOS % 0 % (0-3); HEMATOCRIT 26.2 % (39.0-53.0); HEMOGLOBIN 8.6 g/dL (13.0-17.5); LYMPH # 0.8 x10^3/uL (1.0-4.8); LYMPH % 6 % (24-48); MEAN CORPUSCULAR HEMOGLOBIN 28 pg (25-35); MEAN CORPUSCULAR HGB CONC 33 g/dL (31-37); MEAN CORPUSCULAR VOLUME 84 fL (79-100); MONO # 0.6 x10^3/uL (0.0-1.1); MONO % 5 % (0-9); NEUT # 10.4 x10^3/uL (1.8-7.7); NEUT % 89 % (31-73); PLATELET COUNT 433 x10^3/uL (140-400); RED BLOOD COUNT 3.11 x10^6/uL (4.30-5.70); RED CELL DISTRIBUTION WIDTH 20.4 % (11.5-14.5); WHITE BLOOD COUNT 11.8 x10^3/uL (4.0-11.0)
--- NOTE | 2019-11-13 12:03 | CONS ---
DATE OF CONSULTATION: PULMONARY CONSULTATION ATTENDING PHYSICIAN: Dr. Polk. REASON FOR CONSULTATION: DVT. HISTORY OF PRESENT ILLNESS: The patient is 49 years old who has history of pancreatitis, had a prolonged stay at [facility] in May. He had pancreatic necrosectomy, gastrostomy tube placement, also had a tracheostomy for respiratory failure. He was eventually transferred to [facility]. He was subsequently decannulated. He was brought into the hospital with complaint of swelling, especially in his lower ankles. He did not have any shortness of breath. No chest pain, no headaches. No nausea, but had some stomach pain. He states his PEG tube has been clogged. Venous Dopplers were positive for DVT. I ordered a CTA chest and the results are pending. I have reviewed myself. There is no definite pulmonary embolism seen. There is a mass-like density in the left lower lobe, which probably could be loculated fluid collection. PAST MEDICAL HISTORY: Past medical history is extensive and history of pancreatitis, status post exploratory laparotomy with pancreatic necrosectomy, history of gastrostomy tube placement, history of respiratory failure requiring tracheostomy with subsequent decannulation. History of hepatitis B. History of gallstone pancreatitis. History of hemodialysis for renal failure, which was subsequently stopped. He did have some cephalic vein thrombosis in June. Negative Dopplers of lower extremity in June. PAST SURGICAL HISTORY: As discussed above including a pancreatic necrosectomy, cholecystectomy, gastrostomy tube placement, tracheostomy. ALLERGIES: None. MEDICATIONS: Reviewed as listed in the MRAD including Eliquis. REVIEW OF SYSTEMS: Twelve-point system obtained. Pertinent positives discussed in my history of present illness, otherwise noncontributory. All systems that were negative were reviewed as well. SOCIAL HISTORY: Denies tobacco history. Denied any prior DVT or PE. PHYSICAL EXAMINATION: VITAL SIGNS: Reviewed, pulse ox 98% on room air. NECK: Supple. LUNGS: Clear. CARDIOVASCULAR: With a regular rate. ABDOMEN: Soft, mildly tender. J-tube is in place and a colostomy bag in place. EXTREMITIES: With ankle edema bilaterally. LABORATORY DATA: Reviewed. White cell count 11.5, hemoglobin 9.0 and platelets are 506. BUN and creatinine 19 and 1.1. INR 1.6. IMPRESSION: 1. Lower extremity edema secondary to lower extremity deep venous thrombosis with no convincing evidence of pulmonary embolism. Risk factor for deep venous thrombosis is immobilization. 2. The patient with gallstone pancreatitis in May. He is status post exploratory laparotomy with pancreatic necrosectomy, history of gastrostomy tube placement. 3. History of respiratory failure, status post tracheostomy and subsequent decannulation. 4. History of hepatitis B. 5. History of renal failure, on hemodialysis in the past and subsequently renal function with return back to normal. 6. Clostridium difficile colitis. 7. Right upper quadrant pain related in a patient with history of gallstone pancreatitis. GI and Surgery following. 8. LLL mass like density due to loculated fluid in fissure. RECOMMENDATIONS: 1. From a pulmonary standpoint, continue with Eliquis. 2. Follow the official report of the CTA chest. I do not see any definite PE. 3. Status post J-tube placement by IR. 4. Follow GI and Surgery recommendations. 5. Monitor hemoglobin closely. At this point, does not see a need for IVC filter. 6. Discussed with RN. We will follow along with you. TAYA PEREIRA MD DR: CHACHA/justyn JOB#: [id number] / [id number] ISAIAS
[2019-11-13 12:14] LABS: CALCIUM 7.2 mg/dL (8.5-10.1); CREATININE 0.9 mg/dL (0.7-1.3); GFR 108.5; POTASSIUM 3.8 mmol/L (3.5-5.1)
--- NOTE | 2019-11-13 12:21 | PDOC ---
[facility] [facility] PROGRESS NOTE Chief Complaint Chief Complaint Bilateral DVT Neutropenia and bandemia, recent C. diff infection Toxic encephalopathy secondary to medication, currently resolved Diarrhea. Recurrent C. diff? C. diff Diarrhea on last hospital stay, completed a 10 day course of antibiotics. H/o recent Severe pancreatitis s/p ex-lap with pancreatic necrosectomy, cholecystostomy tube placement, gastrostomy tube placement, tracheostomy placement, 5 drains, 1.5L ascites drained - likely gallstone Status post tracheostomy - reversed, recovered Severe protein calorie malnutrition - started G-tube feeds Physical deconditioning - PT OT followed History of Hepatitis B J tube replaced by IR during last hospitalization but tolerating TFs at night well. History of Present Illness History of Present Illness History of Present Illness History of Present Illness 11/13/19 Patient seen and examined Chart reviewed Discussed with RN Complaining of pain Discussed with via phone call 11/12/2019 Patient seen and examined Ostomy in RUQ and PEG tube in LUQ In bed, in NAD, eating breakfast PO Complaining of abdominal pain and insomnia Chart reviewed Discussed with RN Discussed with Limited H&P since patient is not a very good historian. Patient is a 49-year-old gentleman with past medical history of GERD pancreatitis history of DVT who comes to the emergency department complaining of bilateral leg swelling. At the time of my visit the patient is lying in bed in no apparent distress, he seems to be had of hearing, he is not offering many details about the story and we were asked to admit due to results of Doppler ultrasound revealing bilateral DVTs. Apparently the patient had been on Coumadin before it is unclear at this point if the patient has been taking Coumadin prior to this visit to the emergency department. Patient denies any headaches no blurred vision no stroke like symptoms no chest pain palpitations no shortness of breath has been reported. Patient denies abdominal pain no nausea vomiting or diarrhea. The patient certainly complains of discomfort over his bilateral extremities due to the edema. No other complaints were voiced, plan of care has been explained detail to the patient. Later in the day visited with nursing staff letting her concerned that patient may be having excessive sedation from his home medications that include trazodone and Remeron. Will place this on hold I have discussed this with nursing staff 11/08: Patient with recent admission to the hospital for C. difficile and still having diarrhea he had a significant bandemia which could be a consequence of ongoing C. difficile infection. Today feels much better and seems much more awake compared to yesterday after washout of his medications as most likely has kept him quite sedated at home. I have encourage more protein intake plan of care explained detail to the patient and his and all of their concerns were addressed to the best of my ability Vitals/I&O Vitals/I&O: Vital Signs Date Time Temp Pulse Resp B/P (MAP) Pulse Ox O2 Delivery O2 Flow Rate FiO2 11/13/19 11:34 Room Air 11/13/19 11:00 98.1 113 18 109/78 (88) 100 98.1 I & O 11/12/19 11/12/19 11/13/19 15:00 23:00 07:00 Intake Total 200 ml 100 ml Balance 200 ml 100 ml Physical Exam Physical Exam: GENERAL: Thin, cachectic male in no acute distress, in bed and eating. Looks comfortable HEENT: Normocephalic, atraumatic. No thrush. NECK: Supple, no lymphadenopathy. LUNGS: Decreased breath sounds at the bases, otherwise clear. HEART: S1, S2. No gallops or murmurs. ABDOMEN: Distended, soft, nontender, fistula in place, GJ tube in place. EXTREMITIES: Edema, no cyanosis. DERMATOLOGIC: Warm, dry. 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 NEUROLOGIC: Alert, awake, answers a few questions. PSYCHIATRIC: Flat affect. DERMATOLOGIC: No generalized rash. General: Alert, Oriented X3, Cooperative, mild distress Heart: Regular rate, No murmurs, Other (tachy) Lungs: Clear Abdomen: Soft, Other (mild diffuse TTP, diffuse distention) Extremities: Other (le edema) Skin: No rashes, No significant lesion Labs Labs: Laboratory Tests Test 11/12/19 16:30 11/12/19 21:43 11/13/19 07:52 11/13/19 11:38 Glucose (Fingerstick) 113 mg/dL (70-99) 91 mg/dL (70-99) 69 mg/dL (70-99) White Blood Count 11.8 x10^3/uL (4.0-11.0) Red Blood Count 3.11 x10^6/uL (4.30-5.70) Hemoglobin 8.6 g/dL (13.0-17.5) Hematocrit 26.2 % (39.0-53.0) Mean Corpuscular Volume 84 fL (79-100) Mean Corpuscular Hemoglobin 28 pg (25-35) Mean Corpuscular Hemoglobin Concent 33 g/dL (31-37) Red Cell Distribution Width 20.4 % (11.5-14.5) Platelet Count 433 x10^3/uL (140-400) Neutrophils (%) (Auto) 89 % (31-73) Lymphocytes (%) (Auto) 6 % (24-48) Monocytes (%) (Auto) 5 % (0-9) Eosinophils (%) (Auto) 0 % (0-3) Basophils (%) (Auto) 0 % (0-3) Neutrophils # (Auto) 10.4 x10^3/uL (1.8-7.7) Lymphocytes # (Auto) 0.8 x10^3/uL (1.0-4.8) Monocytes # (Auto) 0.6 x10^3/uL (0.0-1.1) Eosinophils # (Auto) 0.0 x10^3/uL (0.0-0.7) Basophils # (Auto) 0.0 x10^3/uL (0.0-0.2) Test 11/13/19 12:03 Glucose (Fingerstick) 88 mg/dL (70-99) Assessment and Plan Assessmemt and Plan Assessment: Bilateral DVT Neutropenia and bandemia, recent C. diff infection Toxic encephalopathy secondary to medication, currently resolved Diarrhea. Recurrent C. diff? C. diff Diarrhea on last hospital stay, completed a 10 day course of an tibiotics. H/o recent Severe pancreatitis s/p ex-lap with pancreatic necrosectomy, cholecystostomy tube placement, gastrostomy tube placement, tracheostomy placement, 5 drains, 1.5L ascites drained - likely gallstone Status post tracheostomy - reversed, recovered Severe protein calorie malnutrition - started G-tube feeds Physical deconditioning - PT OT followed History of Hepatitis B J tube replaced by IR during last hospitalization but tolerating TFs at night well. Patient declined hospice Plan: Encourage PO intake Morphine adjustment for patient comfort DVT prophylaxis Trend labs Full code Appreciate subspecialist input Comment Review of Relevant I have reviewed the following items alexandra (where applicable) has been applied. Medications: Current Medications Medications (Trade) Dose Ordered Sig/Jesse Route PRN Reason Start Time Stop Time Status Last Admin Dose Admin Iohexol (Omnipaque 350 Mg/ml) 100 ml 1X ONCE IV 11/13/19 08:15 11/13/19 08:22 DC 11/13/19 08:15 Fentanyl Citrate (Fentanyl 2ml Vial) 50 mcg 1X ONCE IV 11/13/19 09:00 11/13/19 09:03 DC 11/13/19 09:37 Iohexol (Omnipaque 240 Mg/ml) 50 ml 1X ONCE PO 11/13/19 09:00 11/13/19 09:03 DC 11/13/19 09:37 Morphine Sulfate (Morphine Sulfate) 2 mg PRN Q2HR PRN IV PAIN 11/13/19 11:30 11/13/19 11:34 Justicifation of Admission Dx: Justifications for Admission: Justification of Admission Dx: Yes Comminuty Aquired Pneumonia: Med-High Risk Pt Sepsis: Infection JUSTIN WORKMAN III DO Nov 13, 2019 12:21
--- NOTE | 2019-11-13 13:33 | NUR ---
SW following. Discussed with RN, pt had J tube replaced today. Pt not doing well today. SW will continue to follow.
--- NOTE | 2019-11-13 14:13 | RAD ---
CTA OF THE CHEST WITH AND WITHOUT CONTRAST Clinical indications: Dyspnea. DVT. Technique: Noncontrast axial localizer was performed. After IV infusion of 100 cc of Omnipaque 350, helical CT scanning of the chest was performed using the CT pulmonary embolism protocol. A coronal MIP reconstruction was generated. PQRS compliance Statement One or more of the following individualized dose reduction techniques were utilized for this study: 1. Automated exposure control 2. Adjustment of the mA and/or kV according to patient size 3. Use of iterative reconstruction technique Comparison: October 22, 2019. Findings: No pulmonary embolism is evident. No focal aneurysmal dilatation or dissection of the thoracic aorta is seen. The heart size is normal and no pericardial effusion is seen. No enlarged thoracic lymphadenopathy is evident. Small bilateral pleural effusions are seen. There is loculated pleural fluid within the left major fissure. There is associated compressive atelectasis or infiltrate within the left lower lobe. The major fissure is retracted posteriorly and therefore this is indicative of volume loss typical of atelectasis. This has not improved from the prior study. Calcified granuloma of the left upper lobe is seen. Groundglass atelectasis of the dependent portion of the right lower lobe is seen. No pneumothorax is seen. The proximal bronchial tree is patent. No lytic process is seen. Adrenal glands are not seen in this study. There is diffuse fatty infiltration of the liver. IMPRESSION: No pulmonary embolism. Small bilateral pleural effusions. This is new on the right side. This was seen previously on the left side but has increased. There is loculated pleural fluid within the left major fissure. There is associated compressive atelectasis or infiltrate within the left lower lobe which has not improved from October 22, 2019. Given posterior retraction of the major fissure on the left side, this is indicative of volume loss more typical of atelectasis but certainly underlying pneumonia may be present as well. Electronically signed by: Keny Ortiz MD (11/13/2019 2:10 PM) [id number]
[2019-11-13 15:00] VITALS: BP 116/63
--- NOTE | 2019-11-13 15:06 | RAD ---
Replacement of occluded gastrojejunostomy tube October 29, 2019 Sterility: All elements of maximal sterile barrier technique including the use of a cap, mask, sterile gown, sterile gloves, large sterile sheet, appropriate hand hygiene, and 2% chlorhexidine for cutaneous antisepsis (or acceptable alternative antiseptic per current guidelines) were followed for this procedure. Consent: The procedure was explained in its entirety to the patient or the patients designated chemical sales representative by a member of the treatment team, including a discussion of the risks, benefits and commonly accepted alternatives to the procedure, as well as the expected consequences of no therapy whatsoever. Discussion of the risks included, but was not limited to, those that are most frequent and those that are rare but possibly severe or life-threatening, as well as the possibility of unforeseen complications. Technique and Findings: Gastrojejunostomy tube was evaluated and found to be in acceptable position however the jejunostomy port was completely occluded. A guidewire was advanced via the gastric port into the jejunum. The pre-existing catheter was removed over the wire and replaced with an new jejunostomy tube. The new jejunostomy tube is of a larger caliber.. The new catheter was found to flush normally. Position was confirmed by administration of contrast through the small bowel. The catheter secured in place. Sterile dressings were applied. Total fluoroscopy time: 1.9 Min Dose area product: 10 Gycm2 Impression: Replacement of obstructed gastrojejunostomy catheter
[2019-11-13] MEDS: ANTI-COAG MONITOR BY PHARMACY. MC PRN (15:20)
[2019-11-13 19:00] VITALS: BP 112/77
[2019-11-13] MEDS ORDERED: ONDANSETRON PF 4 MG/2 ML VIAL. IVP PRN (19:30)
[2019-11-13] MEDS: ALPRAZolam 0.5 MG TABLET PO SCH (21:00)
[2019-11-13] MEDS: TEMAZEPAM 15 MG CAPSULE PO PRN (21:31)
[2019-11-13 23:03] VITALS: BP 110/79
[2019-11-14] VITALS (27 sets, daily range): BP systolic 78–160; BP diastolic 43–96
[2019-11-14] MEDS: MORPHINE SULFATE 4 MG/ML VIAL. IVP PRN ×2 (00:10→08:16)
[2019-11-14 04:09] LABS: BASO % 0 % (0-3); EOS % 0 % (0-3); HEMATOCRIT 22.9 % (39.0-53.0); HEMOGLOBIN 7.3 g/dL (13.0-17.5); LYMPH # 0.7 x10^3/uL (1.0-4.8); LYMPH % 4 % (24-48); MEAN CORPUSCULAR HEMOGLOBIN 27 pg (25-35); MEAN CORPUSCULAR HGB CONC 32 g/dL (31-37); MEAN CORPUSCULAR VOLUME 85 fL (79-100); MONO % 6 % (0-9); NEUT # 16.4 x10^3/uL (1.8-7.7); NEUT % 91 % (31-73); PLATELET COUNT 417 x10^3/uL (140-400); RED BLOOD COUNT 2.71 x10^6/uL (4.30-5.70); RED CELL DISTRIBUTION WIDTH 20.9 % (11.5-14.5); WHITE BLOOD COUNT 18.1 x10^3/uL (4.0-11.0)
[2019-11-14 04:27] LABS: CALCIUM 7.2 mg/dL (8.5-10.1); GFR 96.1
--- NOTE | 2019-11-14 07:25 | NUR ---
Rapid response called to room 508. On arrival pt was lying in bed being bagged by the oracle data warehouse developer with O2 sat readings in the 40's. PT is unresponsive. Pt connected to code cart and found to have a heart rate in the 50's with a palpable femoral pulse. Anesthesia called to intubate pt. Dr. Mercer arrived to intubate. Pt heart rate now in the 30's with no pulse felt. Code Blue called and CPR began. See Code blue sheet for details.
[2019-11-14] MEDS ORDERED: DEXTROSE 50% 25 GM / 50ML DISP.SYRIN. IV ONE ×2 (07:28→07:30)
[2019-11-14] MEDS: PANTOPRAZOLE 40 MG TABLET.DR. PO SCH (07:30)
[2019-11-14] MEDS: FERROUS SULFATE 325 MG TABLET. PO SCH ×2 (08:00→17:00)
[2019-11-14] MEDS ORDERED: EPINEPHrine VIAL 5 MG in IV NORMAL SALINE 250ML 250 ML IV ONE (08:00)
[2019-11-14] MEDS ORDERED: PROPOFOL 100 ML IV PRN (08:15)
--- NOTE | 2019-11-14 08:30 | NUR ---
Pt to room 113 via bed with RT bagging. Pt placed on ventilator and connected to monitoring equipment. Pt family at the bedside.
--- NOTE | 2019-11-14 08:35 | NUR ---
Patient called on his call light at approximately 0715 and told the SHOE DYER that answered the light "I need someone in here." She proceeded to put on her PPE and walk to the patient's room and when she entered the room, she found him lying face down on the floor next to his bed. There was urine under him. I entered the room shortly after her. At that time, the patient was breathing, but he was not responding to me. A couple of other nurses joined in the room and we rolled the patient over on to his back. We noted a small amount of blood coming from his right lower lip and a small skin tear on his right forearm. A sternal rub was attempted and the patient still did not respond. As we were attempting to obtain a set of vitals on him, we moved him onto the bed and called for a rapid response. By the time that the malt house supervisor and the respiratory team arrived in the room, the patient continued to deteriorate and a Code Blue was activated. (See code form.) Patient's spouse was notified of the situation. She accompanied myself and the patient, along with another nurse and a respiratory therapist down to ICU, room 113. I gave report to RNLisa.
--- NOTE | 2019-11-14 08:55 | EKG ---
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
--- NOTE | 2019-11-14 08:57 | EKG ---
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
[2019-11-14] MEDS: APIXABAN 5 MG TABLET. PO SCH (09:00)
[2019-11-14] MEDS: VANCOMYCIN 125 MG/2.5 ML ORAL SOLUTION. PO SCH ×4 (09:00→20:53)
[2019-11-14] MEDS: LACTOBACILLUS RHAMNOSUS GG 1 CAPSULE. PO SCH ×2 (09:00→21:06)
--- NOTE | 2019-11-14 09:00 | PDOC ---
Infectious Disease Note Subjective Subjective Events noted. Per nursing he called to go to bathroom and when aid went in he was on floor face down unresponsive was breathing . 02 sat 42. Bagging. Code cart rate 40 - 50 then down to 30s then no pulse. Three rounds CPR/Intubated IO place RLE. R Ej placed Intubated ROS ROS unable to obtain Vital Sign Vital Signs Vital Signs Date Time Temp Pulse Resp B/P (MAP) Pulse Ox O2 Delivery O2 Flow Rate FiO2 11/14/19 08:09 98 Ventilator 11/14/19 07:15 96.9 54 18 93/43 (60) 96.9 Physical Exam PHYSICAL EXAM GENERAL: Thin, cachectic male Alert but Intubated HEENT: Norm conj. ETT NECK: Supple, no lymphadenopathy. LUNGS: Decreased breath sounds at the bases, increased Resp rate HEART: S1, S2. tachy ABDOMEN: Distended, soft, nontender, fistula in place, GJ tube in place. EXTREMITIES: Edema, no cyanosis.RLE IO DERMATOLOGIC: Warm, dry. 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 NEUROLOGIC: unable to assess PSYCHIATRIC: Unable to assess DERMATOLOGIC: No generalized rash R EJ. Labs Lab Laboratory Tests Test 11/13/19 11:38 11/13/19 12:03 11/13/19 16:59 11/13/19 21:57 White Blood Count 11.8 x10^3/uL (4.0-11.0) Red Blood Count 3.11 x10^6/uL (4.30-5.70) Hemoglobin 8.6 g/dL (13.0-17.5) Hematocrit 26.2 % (39.0-53.0) Mean Corpuscular Volume 84 fL (79-100) Mean Corpuscular Hemoglobin 28 pg (25-35) Mean Corpuscular Hemoglobin Concent 33 g/dL (31-37) Red Cell Distribution Width 20.4 % (11.5-14.5) Platelet Count 433 x10^3/uL (140-400) Neutrophils (%) (Auto) 89 % (31-73) Lymphocytes (%) (Auto) 6 % (24-48) Monocytes (%) (Auto) 5 % (0-9) Eosinophils (%) (Auto) 0 % (0-3) Basophils (%) (Auto) 0 % (0-3) Neutrophils # (Auto) 10.4 x10^3/uL (1.8-7.7) Lymphocytes # (Auto) 0.8 x10^3/uL (1.0-4.8) Monocytes # (Auto) 0.6 x10^3/uL (0.0-1.1) Eosinophils # (Auto) 0.0 x10^3/uL (0.0-0.7) Basophils # (Auto) 0.0 x10^3/uL (0.0-0.2) Sodium Level 131 mmol/L (136-145) Potassium Level 3.8 mmol/L (3.5-5.1) Chloride Level 99 mmol/L (98-107) Carbon Dioxide Level 28 mmol/L (21-32) Anion Gap 4 (6-14) Blood Urea Nitrogen 13 mg/dL (8-26) Creatinine 0.9 mg/dL (0.7-1.3) Estimated GFR (Cockcroft-Gault) 108.5 Glucose Level 72 mg/dL (70-99) Calcium Level 7.2 mg/dL (8.5-10.1) Glucose (Fingerstick) 88 mg/dL (70-99) 96 mg/dL (70-99) 75 mg/dL (70-99) Test 11/14/19 03:30 11/14/19 07:27 White Blood Count 18.1 x10^3/uL (4.0-11.0) Red Blood Count 2.71 x10^6/uL (4.30-5.70) Hemoglobin 7.3 g/dL (13.0-17.5) Hematocrit 22.9 % (39.0-53.0) Mean Corpuscular Volume 85 fL (79-100) Mean Corpuscular Hemoglobin 27 pg (25-35) Mean Corpuscular Hemoglobin Concent 32 g/dL (31-37) Red Cell Distribution Width 20.9 % (11.5-14.5) Platelet Count 417 x10^3/uL (140-400) Neutrophils (%) (Auto) 91 % (31-73) Lymphocytes (%) (Auto) 4 % (24-48) Monocytes (%) (Auto) 6 % (0-9) Eosinophils (%) (Auto) 0 % (0-3) Basophils (%) (Auto) 0 % (0-3) Neutrophils # (Auto) 16.4 x10^3/uL (1.8-7.7) Lymphocytes # (Auto) 0.7 x10^3/uL (1.0-4.8) Monocytes # (Auto) 1.0 x10^3/uL (0.0-1.1) Eosinophils # (Auto) 0.0 x10^3/uL (0.0-0.7) Basophils # (Auto) 0.0 x10^3/uL (0.0-0.2) Sodium Level 131 mmol/L (136-145) Potassium Level 4.0 mmol/L (3.5-5.1) Chloride Level 100 mmol/L (98-107) Carbon Dioxide Level 28 mmol/L (21-32) Anion Gap 3 (6-14) Blood Urea Nitrogen 13 mg/dL (8-26) Creatinine 1.0 mg/dL (0.7-1.3) Estimated GFR (Cockcroft-Gault) 96.1 Glucose Level 85 mg/dL (70-99) Calcium Level 7.2 mg/dL (8.5-10.1) Glucose (Fingerstick) 55 mg/dL (70-99) Micro IMPRESSION: No pulmonary embolism. Small bilateral pleural effusions. This is new on the right side. This was seen previously on the left side but has increased. There is loculated pleural fluid within the left major fissure. There is associated compressive atelectasis or infiltrate within the left lower lobe which has not improved from October 22, 2019. Given posterior retraction of the major fissure on the left side, this is indicative of volume loss more typical of atelectasis but certainly underlying pneumonia may be present as well. Microbiology 11/08/19 Blood Culture - Preliminary, Resulted NO GROWTH AFTER 2 DAYS 11/07/19 Urine Culture - Final, Complete Objective Assessment Acute hypoxic resp failure intubated PEA Gj tube replaced 11/12 ? Loculated LL effusion on CT 11/12 Leukocytosis ? reactive 1. Bilateral lower extremity deep venous thrombosis 11/06 2. Clostridium difficile colitis 10/22 3. Leukocytosis with bandemia- better off abx 4. Left basilar pleural effusion and consolidation, chronic. 5. History of severe pancreatitis, status post exploratory laparotomy with pancreatic necrosectomy, cholecystotomy tube placement, gastrostomy tube placement, tracheostomy placement, five drains. Ascitic fluid drained status post tracheostomy recovered, history of hepatitis B during last admission in 07/2019. 6. Severe protein malnutrition Plan Plan of Care Add KUB Blood and sputum cults/procalcitonin Begin IV Flagyl/Vanc/Meropenem/Micafungin F/u labs Critically ill D/w nursing and Dr. Salinas D/w this am in room. previously - [phone] LE Dickinson MD Nov 14, 2019 09:00
[2019-11-14 09:04] LABS: BASE EXCESS ABG -4 mmol/L (-3-3); HCO3 ABG 20 mmol/L (21-28); PCO2 ABG 32 mmHg (35-46); PO2 ABG 75 mmHg (75-108); SAT O2 ABG 92 % (92-99)
--- NOTE | 2019-11-14 09:04 | RAD ---
Single view chest postintubation Comparison 11/07/2019 FINDINGS: Interval endotracheal intubation with the ET tube terminating 1.4 cm above the kang. Heart is mildly enlarged. Mediastinum is not widened or shifted. Lungs are lower in volume and left lower lobe opacities are more conspicuous in the interval. Trace left pleural effusion. No pneumothorax. No acute or aggressive bony lesions. No free air under the diaphragms. IMPRESSION: Interval endotracheal intubation with ET tube 1.4 cm above the kang. This can be retracted an additional 1 to 2 cm for greater clearance from the kang if clinically warranted. PROCEDURE: KUB STUDY DATE: 11/14/2019 CLINICAL INDICATION / HISTORY: Reason: abd distension / Spl. Instructions: / History: . TECHNIQUE: Single AP image of the abdomen was obtained. COMPARISON: Chest x-ray same day FINDINGS: The lung bases are not fully included in the [id number]. A nonobstructive bowel gas pattern is present. There is tubing overlying the mid upper abdomen. No organomegaly or pathologic calcifications are identified. No acute osseous abnormality. IMPRESSION: No acute abdominal process. Electronically signed by: Eda Sargent MD (11/14/2019 9:01 AM) [id number]
--- NOTE | 2019-11-14 09:04 | RAD ---
Single view chest postintubation Comparison 11/07/2019 FINDINGS: Interval endotracheal intubation with the ET tube terminating 1.4 cm above the kang. Heart is mildly enlarged. Mediastinum is not widened or shifted. Lungs are lower in volume and left lower lobe opacities are more conspicuous in the interval. Trace left pleural effusion. No pneumothorax. No acute or aggressive bony lesions. No free air under the diaphragms. IMPRESSION: Interval endotracheal intubation with ET tube 1.4 cm above the kang. This can be retracted an additional 1 to 2 cm for greater clearance from the kang if clinically warranted. PROCEDURE: KUB STUDY DATE: 11/14/2019 CLINICAL INDICATION / HISTORY: Reason: abd distension / Spl. Instructions: / History: . TECHNIQUE: Single AP image of the abdomen was obtained. COMPARISON: Chest x-ray same day FINDINGS: The lung bases are not fully included in the [id number]. A nonobstructive bowel gas pattern is present. There is tubing overlying the mid upper abdomen. No organomegaly or pathologic calcifications are identified. No acute osseous abnormality. IMPRESSION: No acute abdominal process. Electronically signed by: Eda Sargent MD (11/14/2019 9:01 AM) [id number]
[2019-11-14 09:14] LABS: FIO2 ABG 40
[2019-11-14] MEDS: MIDAZOLAM 100mg/100ml NS BAG 100 ML IV PRN ×2 (09:14→17:32)
[2019-11-14 09:37] LABS: BASO % 0 % (0-3); EOS % 0 % (0-3); HEMOGLOBIN 7.5 g/dL (13.0-17.5); LYMPH # 0.5 x10^3/uL (1.0-4.8); LYMPH % 2 % (24-48); MEAN CORPUSCULAR HEMOGLOBIN 27 pg (25-35); MEAN CORPUSCULAR HGB CONC 31 g/dL (31-37); MEAN CORPUSCULAR VOLUME 87 fL (79-100); MONO # 0.4 x10^3/uL (0.0-1.1); MONO % 1 % (0-9); NEUT # 29.6 x10^3/uL (1.8-7.7); NEUT % 97 % (31-73); PLATELET COUNT 444 x10^3/uL (140-400); RED BLOOD COUNT 2.77 x10^6/uL (4.30-5.70); RED CELL DISTRIBUTION WIDTH 20.4 % (11.5-14.5); WHITE BLOOD COUNT 30.5 x10^3/uL (4.0-11.0)
[2019-11-14 09:49] LABS: CALCIUM 7.1 mg/dL (8.5-10.1); CREATININE 1.3 mg/dL (0.7-1.3); POTASSIUM 4.1 mmol/L (3.5-5.1)
--- NOTE | 2019-11-14 09:56 | PDOC2 ---
NOEL ADHIKARI SERVICE LINE COORDINATOR 11/14/19 0956: CARDIAC CONSULT DATE OF CONSULT Date of Consult DATE: 11/14/19 TIME: 09:56 REASON FOR CONSULT Reason for Consult: Post code REFERRING PHYSICIAN Referring Physician: Roderick SOURCE Source: Chart review HISTORY OF PRESENT ILLNESS HISTORY OF PRESENT ILLNESS This is a 49 yo male admitted for complains bilateral leg pain. Further imaging showed bilateral LE DVT but no PE was noted. He is significant for recent extensive exploratory laparotomy in 06/2019. He was in 5th floor when he was able to yell for help and he was then found on the floor unresponsive. Transferred in bed and he was noted with then with cardiopulmonary arrest per RN. He was noted with initially bradycardia then PEA with approximately 6 min of CPR with 3 round of epinephrine to ROSC. He was then intubated and now on mechanical vent. There was no mention of any preceding chest pain or SOA at that time. He has significant leukocytosis and notable for C-diff. No prior hx of CAD. PAST MEDICAL HISTORY Cardiovascular: CHF, HTN Pulmonary: Other (respiratory failure) GI: Other (pancreatitis) Hepatobiliary: Cholelithiasis Psych: No pertinent hx Renal/: Chronic renal insuff FAMILY HISTORY Family History Exploratory laparotomy, pancreatic necrosectomy, cholecystostomy tube placement, Gastrostomy placement with jejunal extension, tracheostomy placement (specifically 8 shiley cuffed) SOCIAL HISTORY Smoke: No ALCOHOL: none CURRENT MEDICATIONS CURRENT MEDICATIONS Current Medications Medications (Trade) Dose Ordered Sig/Jesse Route PRN Reason Start Time Stop Time Status Last Admin Dose Admin Morphine Sulfate (Morphine Sulfate) 2 mg PRN Q2HR PRN IV PAIN 11/13/19 11:30 11/13/19 13:53 DC 11/13/19 11:34 Morphine Sulfate (Morphine Sulfate) 4 mg PRN Q2HR PRN IVP MODERATE TO SEVERE PAIN 11/13/19 14:00 11/14/19 08:16 Ondansetron HCl (Zofran) 4 mg PRN Q6HRS PRN IVP NAUSEA/VOMITING 11/13/19 19:30 11/14/19 00:13 Midazolam HCl 100 ml @ 0 mls/hr CONT PRN IV SEE PROTOCOL 11/14/19 08:15 11/14/19 09:14 ALLERGIES ALLERGIES: Coded Allergies: No Known Drug Allergies (Unverified , 01/28/16) ROS Review of System unreliable, intubated PHYSICAL EXAM General: Other (intubated with vent) HEENT: Atraumatic Lungs: Other (mechanical vent) Heart: Regular rate (sinus tach) Extremities: No cyanosis Psych/Mental Status: Other (edated) MUSCULOSKELETAL: Osteoarthritic changes both hands VITALS/I&O VITALS/I&O: Vital Signs Date Time Temp Pulse Resp B/P (MAP) Pulse Ox O2 Delivery O2 Flow Rate FiO2 11/14/19 09:18 99 Ventilator 11/14/19 03:00 97.9 71 18 107/78 (88) 97.9 I & O 11/13/19 11/13/19 11/14/19 15:00 23:00 07:00 Intake Total 120 ml 340 ml 200 ml Output Total 400 ml Balance 120 ml -60 ml 200 ml LABS Lab: Laboratory Tests Test 11/13/19 11:38 11/13/19 12:03 11/13/19 16:59 11/13/19 21:57 White Blood Count 11.8 x10^3/uL (4.0-11.0) H Red Blood Count 3.11 x10^6/uL (4.30-5.70) L Hemoglobin 8.6 g/dL (13.0-17.5) L Hematocrit 26.2 % (39.0-53.0) L Mean Corpuscular Volume 84 fL (79-100) Mean Corpuscular Hemoglobin 28 pg (25-35) Mean Corpuscular Hemoglobin Concent 33 g/dL (31-37) Red Cell Distribution Width 20.4 % (11.5-14.5) H Platelet Count 433 x10^3/uL (140-400) H Neutrophils (%) (Auto) 89 % (31-73) H Lymphocytes (%) (Auto) 6 % (24-48) L Monocytes (%) (Auto) 5 % (0-9) Eosinophils (%) (Auto) 0 % (0-3) Basophils (%) (Auto) 0 % (0-3) Neutrophils # (Auto) 10.4 x10^3/uL (1.8-7.7) H Lymphocytes # (Auto) 0.8 x10^3/uL (1.0-4.8) L Monocytes # (Auto) 0.6 x10^3/uL (0.0-1.1) Eosinophils # (Auto) 0.0 x10^3/uL (0.0-0.7) Basophils # (Auto) 0.0 x10^3/uL (0.0-0.2) Sodium Level 131 mmol/L (136-145) L Potassium Level 3.8 mmol/L (3.5-5.1) Chloride Level 99 mmol/L (98-107) Carbon Dioxide Level 28 mmol/L (21-32) Anion Gap 4 (6-14) L Blood Urea Nitrogen 13 mg/dL (8-26) Creatinine 0.9 mg/dL (0.7-1.3) Estimated GFR (Cockcroft-Gault) 108.5 Glucose Level 72 mg/dL (70-99) Calcium Level 7.2 mg/dL (8.5-10.1) L Glucose (Fingerstick) 88 mg/dL (70-99) 96 mg/dL (70-99) 75 mg/dL (70-99) Test 11/14/19 03:30 11/14/19 07:27 11/14/19 09:01 11/14/19 09:25 White Blood Count 18.1 x10^3/uL (4.0-11.0) H 30.5 x10^3/uL (4.0-11.0) H Red Blood Count 2.71 x10^6/uL (4.30-5.70) L 2.77 x10^6/uL (4.30-5.70) L Hemoglobin 7.3 g/dL (13.0-17.5) L 7.5 g/dL (13.0-17.5) L Hematocrit 22.9 % (39.0-53.0) L 24.0 % (39.0-53.0) L Mean Corpuscular Volume 85 fL (79-100) 87 fL (79-100) Mean Corpuscular Hemoglobin 27 pg (25-35) 27 pg (25-35) Mean Corpuscular Hemoglobin Concent 32 g/dL (31-37) 31 g/dL (31-37) Red Cell Distribution Width 20.9 % (11.5-14.5) H 20.4 % (11.5-14.5) H Platelet Count 417 x10^3/uL (140-400) H 444 x10^3/uL (140-400) H Neutrophils (%) (Auto) 91 % (31-73) H 97 % (31-73) H Lymphocytes (%) (Auto) 4 % (24-48) L 2 % (24-48) L Monocytes (%) (Auto) 6 % (0-9) 1 % (0-9) Eosinophils (%) (Auto) 0 % (0-3) 0 % (0-3) Basophils (%) (Auto) 0 % (0-3) 0 % (0-3) Neutrophils # (Auto) 16.4 x10^3/uL (1.8-7.7) H 29.6 x10^3/uL (1.8-7.7) H Lymphocytes # (Auto) 0.7 x10^3/uL (1.0-4.8) L 0.5 x10^3/uL (1.0-4.8) L Monocytes # (Auto) 1.0 x10^3/uL (0.0-1.1) 0.4 x10^3/uL (0.0-1.1) Eosinophils # (Auto) 0.0 x10^3/uL (0.0-0.7) 0.0 x10^3/uL (0.0-0.7) Basophils # (Auto) 0.0 x10^3/uL (0.0-0.2) 0.0 x10^3/uL (0.0-0.2) Sodium Level 131 mmol/L (136-145) L 132 mmol/L (136-145) L Potassium Level 4.0 mmol/L (3.5-5.1) 4.1 mmol/L (3.5-5.1) Chloride Level 100 mmol/L (98-107) 101 mmol/L (98-107) Carbon Dioxide Level 28 mmol/L (21-32) 22 mmol/L (21-32) Anion Gap 3 (6-14) L 9 (6-14) Blood Urea Nitrogen 13 mg/dL (8-26) 14 mg/dL (8-26) Creatinine 1.0 mg/dL (0.7-1.3) 1.3 mg/dL (0.7-1.3) Estimated GFR (Cockcroft-Gault) 96.1 71.0 Glucose Level 85 mg/dL (70-99) 141 mg/dL (70-99) H Calcium Level 7.2 mg/dL (8.5-10.1) L 7.1 mg/dL (8.5-10.1) L Glucose (Fingerstick) 55 mg/dL (70-99) L O2 Saturation 92 % (92-99) Arterial Blood pH 7.43 (7.35-7.45) Arterial Blood pCO2 at Patient Temp 32 mmHg (35-46) L Arterial Blood pO2 at Patient Temp 75 mmHg (75-108) Arterial Blood HCO3 20 mmol/L (21-28) L Arterial Blood Base Excess -4 mmol/L (-3-3) L FiO2 40 Platelet Estimate Pending Laboratory Tests 11/13/19 11:38 11/14/19 03:30 11/14/19 09:25 Laboratory Tests 11/13/19 11:38 11/14/19 03:30 11/14/19 09:25 ASSESSMENT/PLAN ASSESSMENT/PLAN 1. S/P PEA arrest: 6 min to ROSC. multifactorial with severe sepsis, potential PE with significant DVT to bilateral femoral vein and suspected underlying ischemia based on EKG. 2. Sepsis/shock with C-Diff and possible pneumonia and UTI 3. Bilateral LE DVT 4. Acute respiratory failure: No PE per CT in 11/12. now intubated 5. Anemia: ?Gi bleed, ischemic bowel? 6. Prior necrotizing pancreatitis with extensive surgery 7. Acute CHF with possible diastolic/systolic dysfunction 8. Elevated troponin: multifactorial with culprits above. 9. Reactive sinus tachycardia Recommendations 1. Heparin instead if no active GI bleed. received 10 mg eliquis last night 2. TTE. Significant acute comrobid conditions precludes any cardiac intervention 3. Start on pressors with central line pending. Antibiotics per ID. 4. Poor prognosis. Supportive care. GHASSAN STEVENS MD 11/15/19 1050: CARDIAC CONSULT ASSESSMENT/PLAN ASSESSMENT/PLAN Late entry for 11/14/2019 Pt. seen and examined. 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 Echo w/ normal LV function. Thanks NOEL ADHIKARI APRN Nov 14, 2019 09:56 GHASSAN STEVENS MD Nov 15, 2019 10:50
[2019-11-14] MEDS ORDERED: HEPARIN 25,000UTS/250ML PREMIX 250 ML IV PRN (10:00)
[2019-11-14] MEDS ORDERED: VANCOMYCIN 2 GM in IV NORMAL SALINE 500ML BAG 500 ML IV ONE (10:00)
[2019-11-14] MEDS ORDERED: HEPARIN for IV BOLUS 10,000 UNIT/10 ML VIAL. IV PRN (10:00)
[2019-11-14] MEDS ORDERED: HEPARIN for IV BOLUS 10,000 UNIT/10 ML VIAL. IV ONE (10:00)
[2019-11-14] MEDS ORDERED: ASPIRIN 325 MG TABLET JT ONE (10:30)
--- NOTE | 2019-11-14 10:32 | PDOC ---
PULMONARY PROGRESS NOTES Subjective S/P cardiac arrest with 3 rounds of CPR and EPI/ bicarb this am , intubated during cardiac arrest, now in ICU Vitals Vital Signs Date Time Temp Pulse Resp B/P (MAP) Pulse Ox O2 Delivery O2 Flow Rate FiO2 11/14/19 09:18 99 Ventilator 11/14/19 03:00 97.9 71 18 107/78 (88) 97.9 Comments unable to report intubated Lungs: Other (decreased BLL) Cardiovascular: S1, S2 Abdomen: Soft, Non-tender, Other Extremities: Other Labs Laboratory Tests Test 11/12/19 12:10 11/12/19 16:30 11/12/19 21:43 11/13/19 07:52 Glucose (Fingerstick) 104 mg/dL (70-99) 113 mg/dL (70-99) 91 mg/dL (70-99) 69 mg/dL (70-99) Test 11/13/19 11:38 11/13/19 12:03 11/13/19 16:59 11/13/19 21:57 White Blood Count 11.8 x10^3/uL (4.0-11.0) Red Blood Count 3.11 x10^6/uL (4.30-5.70) Hemoglobin 8.6 g/dL (13.0-17.5) Hematocrit 26.2 % (39.0-53.0) Mean Corpuscular Volume 84 fL (79-100) Mean Corpuscular Hemoglobin 28 pg (25-35) Mean Corpuscular Hemoglobin Concent 33 g/dL (31-37) Red Cell Distribution Width 20.4 % (11.5-14.5) Platelet Count 433 x10^3/uL (140-400) Neutrophils (%) (Auto) 89 % (31-73) Lymphocytes (%) (Auto) 6 % (24-48) Monocytes (%) (Auto) 5 % (0-9) Eosinophils (%) (Auto) 0 % (0-3) Basophils (%) (Auto) 0 % (0-3) Neutrophils # (Auto) 10.4 x10^3/uL (1.8-7.7) Lymphocytes # (Auto) 0.8 x10^3/uL (1.0-4.8) Monocytes # (Auto) 0.6 x10^3/uL (0.0-1.1) Eosinophils # (Auto) 0.0 x10^3/uL (0.0-0.7) Basophils # (Auto) 0.0 x10^3/uL (0.0-0.2) Sodium Level 131 mmol/L (136-145) Potassium Level 3.8 mmol/L (3.5-5.1) Chloride Level 99 mmol/L (98-107) Carbon Dioxide Level 28 mmol/L (21-32) Anion Gap 4 (6-14) Blood Urea Nitrogen 13 mg/dL (8-26) Creatinine 0.9 mg/dL (0.7-1.3) Estimated GFR (Cockcroft-Gault) 108.5 Glucose Level 72 mg/dL (70-99) Calcium Level 7.2 mg/dL (8.5-10.1) Glucose (Fingerstick) 88 mg/dL (70-99) 96 mg/dL (70-99) 75 mg/dL (70-99) Test 11/14/19 03:30 11/14/19 07:27 11/14/19 09:01 11/14/19 09:25 White Blood Count 18.1 x10^3/uL (4.0-11.0) 30.5 x10^3/uL (4.0-11.0) Red Blood Count 2.71 x10^6/uL (4.30-5.70) 2.77 x10^6/uL (4.30-5.70) Hemoglobin 7.3 g/dL (13.0-17.5) 7.5 g/dL (13.0-17.5) Hematocrit 22.9 % (39.0-53.0) 24.0 % (39.0-53.0) Mean Corpuscular Volume 85 fL (79-100) 87 fL (79-100) Mean Corpuscular Hemoglobin 27 pg (25-35) 27 pg (25-35) Mean Corpuscular Hemoglobin Concent 32 g/dL (31-37) 31 g/dL (31-37) Red Cell Distribution Width 20.9 % (11.5-14.5) 20.4 % (11.5-14.5) Platelet Count 417 x10^3/uL (140-400) 444 x10^3/uL (140-400) Neutrophils (%) (Auto) 91 % (31-73) 97 % (31-73) Lymphocytes (%) (Auto) 4 % (24-48) 2 % (24-48) Monocytes (%) (Auto) 6 % (0-9) 1 % (0-9) Eosinophils (%) (Auto) 0 % (0-3) 0 % (0-3) Basophils (%) (Auto) 0 % (0-3) 0 % (0-3) Neutrophils # (Auto) 16.4 x10^3/uL (1.8-7.7) 29.6 x10^3/uL (1.8-7.7) Lymphocytes # (Auto) 0.7 x10^3/uL (1.0-4.8) 0.5 x10^3/uL (1.0-4.8) Monocytes # (Auto) 1.0 x10^3/uL (0.0-1.1) 0.4 x10^3/uL (0.0-1.1) Eosinophils # (Auto) 0.0 x10^3/uL (0.0-0.7) 0.0 x10^3/uL (0.0-0.7) Basophils # (Auto) 0.0 x10^3/uL (0.0-0.2) 0.0 x10^3/uL (0.0-0.2) Sodium Level 131 mmol/L (136-145) 132 mmol/L (136-145) Potassium Level 4.0 mmol/L (3.5-5.1) 4.1 mmol/L (3.5-5.1) Chloride Level 100 mmol/L (98-107) 101 mmol/L (98-107) Carbon Dioxide Level 28 mmol/L (21-32) 22 mmol/L (21-32) Anion Gap 3 (6-14) 9 (6-14) Blood Urea Nitrogen 13 mg/dL (8-26) 14 mg/dL (8-26) Creatinine 1.0 mg/dL (0.7-1.3) 1.3 mg/dL (0.7-1.3) Estimated GFR (Cockcroft-Gault) 96.1 71.0 Glucose Level 85 mg/dL (70-99) 141 mg/dL (70-99) Calcium Level 7.2 mg/dL (8.5-10.1) 7.1 mg/dL (8.5-10.1) Glucose (Fingerstick) 55 mg/dL (70-99) O2 Saturation 92 % (92-99) Arterial Blood pH 7.43 (7.35-7.45) Arterial Blood pCO2 at Patient Temp 32 mmHg (35-46) Arterial Blood pO2 at Patient Temp 75 mmHg (75-108) Arterial Blood HCO3 20 mmol/L (21-28) Arterial Blood Base Excess -4 mmol/L (-3-3) FiO2 40 Lactic Acid Level 7.0 mmol/L (0.4-2.0) Troponin I Quantitative 0.553 ng/mL (0.000-0.055) Laboratory Tests Test 11/13/19 11:38 11/13/19 12:03 11/13/19 16:59 11/13/19 21:57 White Blood Count 11.8 x10^3/uL (4.0-11.0) Red Blood Count 3.11 x10^6/uL (4.30-5.70) Hemoglobin 8.6 g/dL (13.0-17.5) Hematocrit 26.2 % (39.0-53.0) Mean Corpuscular Volume 84 fL (79-100) Mean Corpuscular Hemoglobin 28 pg (25-35) Mean Corpuscular Hemoglobin Concent 33 g/dL (31-37) Red Cell Distribution Width 20.4 % (11.5-14.5) Platelet Count 433 x10^3/uL (140-400) Neutrophils (%) (Auto) 89 % (31-73) Lymphocytes (%) (Auto) 6 % (24-48) Monocytes (%) (Auto) 5 % (0-9) Eosinophils (%) (Auto) 0 % (0-3) Basophils (%) (Auto) 0 % (0-3) Neutrophils # (Auto) 10.4 x10^3/uL (1.8-7.7) Lymphocytes # (Auto) 0.8 x10^3/uL (1.0-4.8) Monocytes # (Auto) 0.6 x10^3/uL (0.0-1.1) Eosinophils # (Auto) 0.0 x10^3/uL (0.0-0.7) Basophils # (Auto) 0.0 x10^3/uL (0.0-0.2) Sodium Level 131 mmol/L (136-145) Potassium Level 3.8 mmol/L (3.5-5.1) Chloride Level 99 mmol/L (98-107) Carbon Dioxide Level 28 mmol/L (21-32) Anion Gap 4 (6-14) Blood Urea Nitrogen 13 mg/dL (8-26) Creatinine 0.9 mg/dL (0.7-1.3) Estimated GFR (Cockcroft-Gault) 108.5 Glucose Level 72 mg/dL (70-99) Calcium Level 7.2 mg/dL (8.5-10.1) Glucose (Fingerstick) 88 mg/dL (70-99) 96 mg/dL (70-99) 75 mg/dL (70-99) Test 11/14/19 03:30 11/14/19 07:27 11/14/19 09:01 11/14/19 09:25 White Blood Count 18.1 x10^3/uL (4.0-11.0) 30.5 x10^3/uL (4.0-11.0) Red Blood Count 2.71 x10^6/uL (4.30-5.70) 2.77 x10^6/uL (4.30-5.70) Hemoglobin 7.3 g/dL (13.0-17.5) 7.5 g/dL (13.0-17.5) Hematocrit 22.9 % (39.0-53.0) 24.0 % (39.0-53.0) Mean Corpuscular Volume 85 fL (79-100) 87 fL (79-100) Mean Corpuscular Hemoglobin 27 pg (25-35) 27 pg (25-35) Mean Corpuscular Hemoglobin Concent 32 g/dL (31-37) 31 g/dL (31-37) Red Cell Distribution Width 20.9 % (11.5-14.5) 20.4 % (11.5-14.5) Platelet Count 417 x10^3/uL (140-400) 444 x10^3/uL (140-400) Neutrophils (%) (Auto) 91 % (31-73) 97 % (31-73) Lymphocytes (%) (Auto) 4 % (24-48) 2 % (24-48) Monocytes (%) (Auto) 6 % (0-9) 1 % (0-9) Eosinophils (%) (Auto) 0 % (0-3) 0 % (0-3) Basophils (%) (Auto) 0 % (0-3) 0 % (0-3) Neutrophils # (Auto) 16.4 x10^3/uL (1.8-7.7) 29.6 x10^3/uL (1.8-7.7) Lymphocytes # (Auto) 0.7 x10^3/uL (1.0-4.8) 0.5 x10^3/uL (1.0-4.8) Monocytes # (Auto) 1.0 x10^3/uL (0.0-1.1) 0.4 x10^3/uL (0.0-1.1) Eosinophils # (Auto) 0.0 x10^3/uL (0.0-0.7) 0.0 x10^3/uL (0.0-0.7) Basophils # (Auto) 0.0 x10^3/uL (0.0-0.2) 0.0 x10^3/uL (0.0-0.2) Sodium Level 131 mmol/L (136-145) 132 mmol/L (136-145) Potassium Level 4.0 mmol/L (3.5-5.1) 4.1 mmol/L (3.5-5.1) Chloride Level 100 mmol/L (98-107) 101 mmol/L (98-107) Carbon Dioxide Level 28 mmol/L (21-32) 22 mmol/L (21-32) Anion Gap 3 (6-14) 9 (6-14) Blood Urea Nitrogen 13 mg/dL (8-26) 14 mg/dL (8-26) Creatinine 1.0 mg/dL (0.7-1.3) 1.3 mg/dL (0.7-1.3) Estimated GFR (Cockcroft-Gault) 96.1 71.0 Glucose Level 85 mg/dL (70-99) 141 mg/dL (70-99) Calcium Level 7.2 mg/dL (8.5-10.1) 7.1 mg/dL (8.5-10.1) Glucose (Fingerstick) 55 mg/dL (70-99) O2 Saturation 92 % (92-99) Arterial Blood pH 7.43 (7.35-7.45) Arterial Blood pCO2 at Patient Temp 32 mmHg (35-46) Arterial Blood pO2 at Patient Temp 75 mmHg (75-108) Arterial Blood HCO3 20 mmol/L (21-28) Arterial Blood Base Excess -4 mmol/L (-3-3) FiO2 40 Lactic Acid Level 7.0 mmol/L (0.4-2.0) Troponin I Quantitative 0.553 ng/mL (0.000-0.055) Medications Active Scripts Medications Dose Route/Sig Max Daily Dose Days Date Category Remeron (Mirtazapine) 15 Mg Tablet 1 Tab PO QHS 11/01/19 Reported Oxycodone Hcl Immed.release (Oxycodone Hcl) 15 Mg Tablet 15 Mg PO PRN Q6HRS PRN 5 10/31/19 Rx Buspirone Hcl 10 Mg Tablet 1 Tab PO BIDACBL 10/21/19 Reported Alprazolam 0.5 Mg Tablet 1 Tab PO HS 10/16/19 Reported Acetaminophen 500 Mg Tablet 1 Tab PO PRN Q6HRS PRN 15 10/16/19 Reported Ferrous Sulfate 325 Mg Tablet 65 Mg PO BID 10/16/19 Reported Pantoprazole Sodium (Pantoprazole Sodium) 40 Mg Tablet.dr 40 Mg PO DAILYAC 08/15/19 Reported Trazodone Hcl 50 Mg Tablet 1 Tab PO QHS 08/15/19 Reported Gabapentin (Gabapentin) 100 Mg Capsule 100 Mg PO TID 08/15/19 Reported Impression . IMPRESSION: 1.Acute Hypoxic respiratory Failure 2/2 cardiac arrest-- now requiring mechanical ventilation 2.S/P Cardiac arrest unknown etiology--r/o Cardiac vs [employer] cause for respiratory failure VS. bowel perforation 2/2 c.diff/ ? Narcotics contribution 3.Lower extremity edema secondary to lower extremity deep venous thrombosis with no evidence of pulmonary embolism. Risk factor for deep venous thrombosis is immobilization. 4. The patient with gallstone pancreatitis in May. He is status post exploratory laparotomy with pancreatic necrosectomy, history of gastrostomy tube placement. 5. History of respiratory failure, status post tracheostomy and subsequent decannulation. 6. History of hepatitis B. 7. History of renal failure, on hemodialysis in the past and subsequently renal function with return back to normal. 8. Clostridium difficile colitis. 9. Right upper quadrant pain related in a patient with history of gallstone pancreatitis. GI and Surgery following. 10. leukocytosis 11[address] CT with LLL mass like density related to fluid collection/ pseudo tumor Plan . RECOMMENDATIONS: continue current vent support monitor ABG and CXR make changes as needed start heparin gtt and D/C eliquis will obtain CT head/ CT abd/plvs to R/o [employer] cause fro respiratory failure VS. bowel perforation / c.diff obtain ECHO and consult to cardiology follow recs ABX per ID follow surgery recs-- S/P J-tube placement with IR on 11/12 Monitor HGB, transfuse as needed for HGb less than 7 Vasopressors as needed to keep MAP greater than 60 DVT/GI PPX Discussed with RN and RT and Family at bedside Total critical care time 40 minutes coordinating care and reviewing diagnostics Addend. Patient with GI bleed . Hb 6.4. DC heparin. d/w about the need for IVC filter. She agrees. d/w IR TAYA PEREIRA MD Nov 14, 2019 10:32
--- NOTE | 2019-11-14 10:47 | PDOC ---
SURGICAL PROGRESS NOTE Subjective Events noted, suspect pt had vagal vagal on toilet with resultant code. Pt now in ICU, intubated. Vital Signs Vital Signs Date Time Temp Pulse Resp B/P (MAP) Pulse Ox O2 Delivery O2 Flow Rate FiO2 11/14/19 10:00 132 22 106/61 (76) 100 Ventilator 11/14/19 08:15 98.5 98.5 I&O Intake and Output 11/14/19 07:00 Intake Total 660 ml Output Total 400 ml Balance 260 ml Intake Oral 660 ml Output Urine Total 400 ml # Voids 1 # Bowel Movements 1 HEENT: Other (open eyes, but does not track) Abdomen: Soft, Other (drainage from cholecystostomy site, NTTP, protruberent, but stable) Labs Laboratory Tests Test 11/12/19 12:10 11/12/19 16:30 11/12/19 21:43 11/13/19 07:52 Glucose (Fingerstick) 104 mg/dL (70-99) 113 mg/dL (70-99) 91 mg/dL (70-99) 69 mg/dL (70-99) Test 11/13/19 11:38 11/13/19 12:03 11/13/19 16:59 11/13/19 21:57 White Blood Count 11.8 x10^3/uL (4.0-11.0) Red Blood Count 3.11 x10^6/uL (4.30-5.70) Hemoglobin 8.6 g/dL (13.0-17.5) Hematocrit 26.2 % (39.0-53.0) Mean Corpuscular Volume 84 fL (79-100) Mean Corpuscular Hemoglobin 28 pg (25-35) Mean Corpuscular Hemoglobin Concent 33 g/dL (31-37) Red Cell Distribution Width 20.4 % (11.5-14.5) Platelet Count 433 x10^3/uL (140-400) Neutrophils (%) (Auto) 89 % (31-73) Lymphocytes (%) (Auto) 6 % (24-48) Monocytes (%) (Auto) 5 % (0-9) Eosinophils (%) (Auto) 0 % (0-3) Basophils (%) (Auto) 0 % (0-3) Neutrophils # (Auto) 10.4 x10^3/uL (1.8-7.7) Lymphocytes # (Auto) 0.8 x10^3/uL (1.0-4.8) Monocytes # (Auto) 0.6 x10^3/uL (0.0-1.1) Eosinophils # (Auto) 0.0 x10^3/uL (0.0-0.7) Basophils # (Auto) 0.0 x10^3/uL (0.0-0.2) Sodium Level 131 mmol/L (136-145) Potassium Level 3.8 mmol/L (3.5-5.1) Chloride Level 99 mmol/L (98-107) Carbon Dioxide Level 28 mmol/L (21-32) Anion Gap 4 (6-14) Blood Urea Nitrogen 13 mg/dL (8-26) Creatinine 0.9 mg/dL (0.7-1.3) Estimated GFR (Cockcroft-Gault) 108.5 Glucose Level 72 mg/dL (70-99) Calcium Level 7.2 mg/dL (8.5-10.1) Glucose (Fingerstick) 88 mg/dL (70-99) 96 mg/dL (70-99) 75 mg/dL (70-99) Test 11/14/19 03:30 11/14/19 07:27 11/14/19 09:01 11/14/19 09:25 White Blood Count 18.1 x10^3/uL (4.0-11.0) 30.5 x10^3/uL (4.0-11.0) Red Blood Count 2.71 x10^6/uL (4.30-5.70) 2.77 x10^6/uL (4.30-5.70) Hemoglobin 7.3 g/dL (13.0-17.5) 7.5 g/dL (13.0-17.5) Hematocrit 22.9 % (39.0-53.0) 24.0 % (39.0-53.0) Mean Corpuscular Volume 85 fL (79-100) 87 fL (79-100) Mean Corpuscular Hemoglobin 27 pg (25-35) 27 pg (25-35) Mean Corpuscular Hemoglobin Concent 32 g/dL (31-37) 31 g/dL (31-37) Red Cell Distribution Width 20.9 % (11.5-14.5) 20.4 % (11.5-14.5) Platelet Count 417 x10^3/uL (140-400) 444 x10^3/uL (140-400) Neutrophils (%) (Auto) 91 % (31-73) 97 % (31-73) Lymphocytes (%) (Auto) 4 % (24-48) 2 % (24-48) Monocytes (%) (Auto) 6 % (0-9) 1 % (0-9) Eosinophils (%) (Auto) 0 % (0-3) 0 % (0-3) Basophils (%) (Auto) 0 % (0-3) 0 % (0-3) Neutrophils # (Auto) 16.4 x10^3/uL (1.8-7.7) 29.6 x10^3/uL (1.8-7.7) Lymphocytes # (Auto) 0.7 x10^3/uL (1.0-4.8) 0.5 x10^3/uL (1.0-4.8) Monocytes # (Auto) 1.0 x10^3/uL (0.0-1.1) 0.4 x10^3/uL (0.0-1.1) Eosinophils # (Auto) 0.0 x10^3/uL (0.0-0.7) 0.0 x10^3/uL (0.0-0.7) Basophils # (Auto) 0.0 x10^3/uL (0.0-0.2) 0.0 x10^3/uL (0.0-0.2) Sodium Level 131 mmol/L (136-145) 132 mmol/L (136-145) Potassium Level 4.0 mmol/L (3.5-5.1) 4.1 mmol/L (3.5-5.1) Chloride Level 100 mmol/L (98-107) 101 mmol/L (98-107) Carbon Dioxide Level 28 mmol/L (21-32) 22 mmol/L (21-32) Anion Gap 3 (6-14) 9 (6-14) Blood Urea Nitrogen 13 mg/dL (8-26) 14 mg/dL (8-26) Creatinine 1.0 mg/dL (0.7-1.3) 1.3 mg/dL (0.7-1.3) Estimated GFR (Cockcroft-Gault) 96.1 71.0 Glucose Level 85 mg/dL (70-99) 141 mg/dL (70-99) Calcium Level 7.2 mg/dL (8.5-10.1) 7.1 mg/dL (8.5-10.1) Glucose (Fingerstick) 55 mg/dL (70-99) O2 Saturation 92 % (92-99) Arterial Blood pH 7.43 (7.35-7.45) Arterial Blood pCO2 at Patient Temp 32 mmHg (35-46) Arterial Blood pO2 at Patient Temp 75 mmHg (75-108) Arterial Blood HCO3 20 mmol/L (21-28) Arterial Blood Base Excess -4 mmol/L (-3-3) FiO2 40 Lactic Acid Level 7.0 mmol/L (0.4-2.0) Troponin I Quantitative 0.553 ng/mL (0.000-0.055) Laboratory Tests Test 11/13/19 11:38 11/13/19 12:03 11/13/19 16:59 11/13/19 21:57 White Blood Count 11.8 x10^3/uL (4.0-11.0) Red Blood Count 3.11 x10^6/uL (4.30-5.70) Hemoglobin 8.6 g/dL (13.0-17.5) Hematocrit 26.2 % (39.0-53.0) Mean Corpuscular Volume 84 fL (79-100) Mean Corpuscular Hemoglobin 28 pg (25-35) Mean Corpuscular Hemoglobin Concent 33 g/dL (31-37) Red Cell Distribution Width 20.4 % (11.5-14.5) Platelet Count 433 x10^3/uL (140-400) Neutrophils (%) (Auto) 89 % (31-73) Lymphocytes (%) (Auto) 6 % (24-48) Monocytes (%) (Auto) 5 % (0-9) Eosinophils (%) (Auto) 0 % (0-3) Basophils (%) (Auto) 0 % (0-3) Neutrophils # (Auto) 10.4 x10^3/uL (1.8-7.7) Lymphocytes # (Auto) 0.8 x10^3/uL (1.0-4.8) Monocytes # (Auto) 0.6 x10^3/uL (0.0-1.1) Eosinophils # (Auto) 0.0 x10^3/uL (0.0-0.7) Basophils # (Auto) 0.0 x10^3/uL (0.0-0.2) Sodium Level 131 mmol/L (136-145) Potassium Level 3.8 mmol/L (3.5-5.1) Chloride Level 99 mmol/L (98-107) Carbon Dioxide Level 28 mmol/L (21-32) Anion Gap 4 (6-14) Blood Urea Nitrogen 13 mg/dL (8-26) Creatinine 0.9 mg/dL (0.7-1.3) Estimated GFR (Cockcroft-Gault) 108.5 Glucose Level 72 mg/dL (70-99) Calcium Level 7.2 mg/dL (8.5-10.1) Glucose (Fingerstick) 88 mg/dL (70-99) 96 mg/dL (70-99) 75 mg/dL (70-99) Test 11/14/19 03:30 11/14/19 07:27 11/14/19 09:01 11/14/19 09:25 White Blood Count 18.1 x10^3/uL (4.0-11.0) 30.5 x10^3/uL (4.0-11.0) Red Blood Count 2.71 x10^6/uL (4.30-5.70) 2.77 x10^6/uL (4.30-5.70) Hemoglobin 7.3 g/dL (13.0-17.5) 7.5 g/dL (13.0-17.5) Hematocrit 22.9 % (39.0-53.0) 24.0 % (39.0-53.0) Mean Corpuscular Volume 85 fL (79-100) 87 fL (79-100) Mean Corpuscular Hemoglobin 27 pg (25-35) 27 pg (25-35) Mean Corpuscular Hemoglobin Concent 32 g/dL (31-37) 31 g/dL (31-37) Red Cell Distribution Width 20.9 % (11.5-14.5) 20.4 % (11.5-14.5) Platelet Count 417 x10^3/uL (140-400) 444 x10^3/uL (140-400) Neutrophils (%) (Auto) 91 % (31-73) 97 % (31-73) Lymphocytes (%) (Auto) 4 % (24-48) 2 % (24-48) Monocytes (%) (Auto) 6 % (0-9) 1 % (0-9) Eosinophils (%) (Auto) 0 % (0-3) 0 % (0-3) Basophils (%) (Auto) 0 % (0-3) 0 % (0-3) Neutrophils # (Auto) 16.4 x10^3/uL (1.8-7.7) 29.6 x10^3/uL (1.8-7.7) Lymphocytes # (Auto) 0.7 x10^3/uL (1.0-4.8) 0.5 x10^3/uL (1.0-4.8) Monocytes # (Auto) 1.0 x10^3/uL (0.0-1.1) 0.4 x10^3/uL (0.0-1.1) Eosinophils # (Auto) 0.0 x10^3/uL (0.0-0.7) 0.0 x10^3/uL (0.0-0.7) Basophils # (Auto) 0.0 x10^3/uL (0.0-0.2) 0.0 x10^3/uL (0.0-0.2) Sodium Level 131 mmol/L (136-145) 132 mmol/L (136-145) Potassium Level 4.0 mmol/L (3.5-5.1) 4.1 mmol/L (3.5-5.1) Chloride Level 100 mmol/L (98-107) 101 mmol/L (98-107) Carbon Dioxide Level 28 mmol/L (21-32) 22 mmol/L (21-32) Anion Gap 3 (6-14) 9 (6-14) Blood Urea Nitrogen 13 mg/dL (8-26) 14 mg/dL (8-26) Creatinine 1.0 mg/dL (0.7-1.3) 1.3 mg/dL (0.7-1.3) Estimated GFR (Cockcroft-Gault) 96.1 71.0 Glucose Level 85 mg/dL (70-99) 141 mg/dL (70-99) Calcium Level 7.2 mg/dL (8.5-10.1) 7.1 mg/dL (8.5-10.1) Glucose (Fingerstick) 55 mg/dL (70-99) O2 Saturation 92 % (92-99) Arterial Blood pH 7.43 (7.35-7.45) Arterial Blood pCO2 at Patient Temp 32 mmHg (35-46) Arterial Blood pO2 at Patient Temp 75 mmHg (75-108) Arterial Blood HCO3 20 mmol/L (21-28) Arterial Blood Base Excess -4 mmol/L (-3-3) FiO2 40 Lactic Acid Level 7.0 mmol/L (0.4-2.0) Troponin I Quantitative 0.553 ng/mL (0.000-0.055) I have reviewed the following CT chest without PE, KUB wnl Problem List severe pancreatitis with multiple complications d/w pulm-appreciate care d/w pt's supportive and family. Justicifation of Admission Dx: Justifications for Admission: Justification of Admission Dx: Yes Comminuty Aquired Pneumonia: Med-High Risk Pt Sepsis: Infection KARLA CALL MD Nov 14, 2019 10:47
[2019-11-14] MEDS: IV NORMAL SALINE 1000ML BAG 1,000 ML IV SCH ×2 (12:05→13:31)
--- NOTE | 2019-11-14 12:06 | RAD ---
Chest one view. HISTORY: Central line placement AP view was taken of the chest. There is a right central line which extends to the right atrium. Endotracheal tube is at level of the clavicles just above the aortic arch. NG tube in the stomach. There are pleural effusions. There is atelectasis or infiltrate in the left lower lobe. There is also tube in the abdomen possibly a jejunal tube. IMPRESSION: 1. Right central line extends to the right atrium. 2. Pleural effusions. 3. Left lower lobe atelectasis or infiltrate. 4. NG tube in the stomach. 5. Endotracheal tube at the level the clavicles. Electronically signed by: Jim López MD (11/14/2019 12:03 PM) [id number]
[2019-11-14] MEDS: MICAFUNGIN 100 MG in IV DEXTROSE 5% 100ML 100 ML IV SCH (12:07)
--- NOTE | 2019-11-14 12:25 | NUR ---
SS following for discharge planning. SS reviewed pt chart and discussed with pt RN. Pt transferred to ICU. Pt coded this AM. Pt currently on the vent. Pt had CT scans today. Pt currently having active bleeding. Pt on IV Meropenem and IV Micafungin. Pt had J tube replaced during this stay. Pt is from home with spouse and has tube feedings through [facility]. SS will continue to follow for discharge planning.
--- NOTE | 2019-11-14 12:31 | PDOC ---
[facility] PROGRESS NOTE Chief Complaint Chief Complaint Acute Hypoxic respiratory Failure 2/2 cardiac arrest-- now requiring mechanical ventilation S/P Cardiac arrest unknown etiology Acute GI bleed, unknown source suspect C. difficile colitis possible perforation Bilateral DVT Neutropenia and bandemia, recent C. diff infection Toxic encephalopathy secondary to medication, currently resolved Diarrhea. Recurrent C. diff? C. diff Diarrhea on last hospital stay, completed a 10 day course of antibiotics. H/o recent Severe pancreatitis s/p ex-lap with pancreatic necrosectomy, cholecystostomy tube placement, gastrostomy tube placement, tracheostomy placement, 5 drains, 1.5L ascites drained - likely gallstone Status post tracheostomy - reversed, recovered Severe protein calorie malnutrition - started G-tube feeds Physical deconditioning - PT OT followed History of Hepatitis B J tube replaced by IR during last hospitalization but tolerating TFs at night well. Hold heparin drip Pending cardiology, pulmonary, ID evaluation. Appreciate surgery recommendations Hold DVT prophylaxis Protonix GI prophylaxis Patient is intubated and sedated Full code Discussed with RN and SW Dispo pending surgery evaluation Surrogate decision maker is Total critical care time spent is 40 minutes History of Present Illness History of Present Illness History of Present Illness History of Present Illness 11/14/2019 Patient seen and examined bedside. Patient is sedated and intubated. Status post cardiac arrest with 3 rounds of CPR. Patient's chart, labs, images were reviewed and discussed with RN 11/13/19 Patient seen and examined Chart reviewed Discussed with RN Complaining of pain Discussed with via phone call 11/12/2019 Patient seen and examined Ostomy in RUQ and PEG tube in LUQ In bed, in NAD, eating breakfast PO Complaining of abdominal pain and insomnia Chart reviewed Discussed with RN Discussed with Limited H&P since patient is not a very good historian. Patient is a 49-year- old gentleman with past medical history of GERD pancreatitis history of DVT who comes to the emergency department complaining of bilateral leg swelling. At the time of my visit the patient is lying in bed in no apparent distress, he seems to be had of hearing, he is not offering many details about the story and we were asked to admit due to results of Doppler ultrasound revealing bilateral DVTs. Apparently the patient had been on Coumadin before it is unclear at this point if the patient has been taking Coumadin prior to this visit to the emergency department. Patient denies any headaches no blurred vision no strokelike symptoms no chest pain palpitations no shortness of breath has been reported. Patient denies abdominal pain no nausea vomiting or diarrhea. The patient certainly complains of discomfort over his bilateral extremities due to the edema. No other complaints were voiced, plan of care has been explained detail to the patient. Later in the day visited with nursing staff letting her concerned that patient may be having excessive sedation from his home medications that include trazodone and Remeron. Will place this on hold I have discussed this with nursing staff 11/08: Patient with recent admission to the hospital for C. difficile and still having diarrhea he had a significant bandemia which could be a consequence of ongoing C. difficile infection. Today feels much better and seems much more awake compared to yesterday after washout of his medications as most likely has kept him quite sedated at home. I have encourage more protein intake plan of care explained detail to the patient and his and all of their concerns were addressed to the best of my ability Vitals/I&O Vitals/I&O: Vital Signs Date Time Temp Pulse Resp B/P (MAP) Pulse Ox O2 Delivery O2 Flow Rate FiO2 11/14/19 12:04 100 Ventilator 11/14/19 10:00 132 22 106/61 (76) 11/14/19 08:15 98.5 98.5 I & O 11/13/19 11/13/19 11/14/19 15:00 23:00 07:00 Intake Total 120 ml 340 ml 200 ml Output Total 400 ml Balance 120 ml -60 ml 200 ml Physical Exam Physical Exam: GENERAL: Thin, cachectic male Alert but Intubated HEENT: Norm conj. ETT NECK: Supple, no lymphadenopathy. LUNGS: Decreased breath sounds at the bases, increased Resp rate HEART: S1, S2. tachy ABDOMEN: Distended, soft, nontender, fistula in place, GJ tube in place. EXTREMITIES: Edema, no cyanosis.RLE IO DERMATOLOGIC: Warm, dry. 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 NEUROLOGIC: unable to assess PSYCHIATRIC: Unable to assess DERMATOLOGIC: No generalized rash R EJ. General: Alert, Oriented X3, Cooperative, mild distress Heart: Regular rate, No murmurs, Other (tachy) Lungs: Other (decreased BLL) Abdomen: Soft, Other (drainage from cholecystostomy site, NTTP, protruberent, but stable) Extremities: Other (le edema) Skin: No rashes, No significant lesion Labs Labs: Laboratory Tests Test 11/13/19 16:59 11/13/19 21:57 11/14/19 03:30 11/14/19 07:27 Glucose (Fingerstick) 96 mg/dL (70-99) 75 mg/dL (70-99) 55 mg/dL (70-99) White Blood Count 18.1 x10^3/uL (4.0-11.0) Red Blood Count 2.71 x10^6/uL (4.30-5.70) Hemoglobin 7.3 g/dL (13.0-17.5) Hematocrit 22.9 % (39.0-53.0) Mean Corpuscular Volume 85 fL (79-100) Mean Corpuscular Hemoglobin 27 pg (25-35) Mean Corpuscular Hemoglobin Concent 32 g/dL (31-37) Red Cell Distribution Width 20.9 % (11.5-14.5) Platelet Count 417 x10^3/uL (140-400) Neutrophils (%) (Auto) 91 % (31-73) Lymphocytes (%) (Auto) 4 % (24-48) Monocytes (%) (Auto) 6 % (0-9) Eosinophils (%) (Auto) 0 % (0-3) Basophils (%) (Auto) 0 % (0-3) Neutrophils # (Auto) 16.4 x10^3/uL (1.8-7.7) Lymphocytes # (Auto) 0.7 x10^3/uL (1.0-4.8) Monocytes # (Auto) 1.0 x10^3/uL (0.0-1.1) Eosinophils # (Auto) 0.0 x10^3/uL (0.0-0.7) Basophils # (Auto) 0.0 x10^3/uL (0.0-0.2) Sodium Level 131 mmol/L (136-145) Potassium Level 4.0 mmol/L (3.5-5.1) Chloride Level 100 mmol/L (98-107) Carbon Dioxide Level 28 mmol/L (21-32) Anion Gap 3 (6-14) Blood Urea Nitrogen 13 mg/dL (8-26) Creatinine 1.0 mg/dL (0.7-1.3) Estimated GFR (Cockcroft-Gault) 96.1 Glucose Level 85 mg/dL (70-99) Calcium Level 7.2 mg/dL (8.5-10.1) Test 11/14/19 09:01 11/14/19 09:25 O2 Saturation 92 % (92-99) Arterial Blood pH 7.43 (7.35-7.45) Arterial Blood pCO2 at Patient Temp 32 mmHg (35-46) Arterial Blood pO2 at Patient Temp 75 mmHg (75-108) Arterial Blood HCO3 20 mmol/L (21-28) Arterial Blood Base Excess -4 mmol/L (-3-3) FiO2 40 White Blood Count 30.5 x10^3/uL (4.0-11.0) Red Blood Count 2.77 x10^6/uL (4.30-5.70) Hemoglobin 7.5 g/dL (13.0-17.5) Hematocrit 24.0 % (39.0-53.0) Mean Corpuscular Volume 87 fL (79-100) Mean Corpuscular Hemoglobin 27 pg (25-35) Mean Corpuscular Hemoglobin Concent 31 g/dL (31-37) Red Cell Distribution Width 20.4 % (11.5-14.5) Platelet Count 444 x10^3/uL (140-400) Neutrophils (%) (Auto) 97 % (31-73) Lymphocytes (%) (Auto) 2 % (24-48) Monocytes (%) (Auto) 1 % (0-9) Eosinophils (%) (Auto) 0 % (0-3) Basophils (%) (Auto) 0 % (0-3) Neutrophils # (Auto) 29.6 x10^3/uL (1.8-7.7) Lymphocytes # (Auto) 0.5 x10^3/uL (1.0-4.8) Monocytes # (Auto) 0.4 x10^3/uL (0.0-1.1) Eosinophils # (Auto) 0.0 x10^3/uL (0.0-0.7) Basophils # (Auto) 0.0 x10^3/uL (0.0-0.2) Sodium Level 132 mmol/L (136-145) Potassium Level 4.1 mmol/L (3.5-5.1) Chloride Level 101 mmol/L (98-107) Carbon Dioxide Level 22 mmol/L (21-32) Anion Gap 9 (6-14) Blood Urea Nitrogen 14 mg/dL (8-26) Creatinine 1.3 mg/dL (0.7-1.3) Estimated GFR (Cockcroft-Gault) 71.0 Glucose Level 141 mg/dL (70-99) Lactic Acid Level 7.0 mmol/L (0.4-2.0) Calcium Level 7.1 mg/dL (8.5-10.1) Magnesium Level 2.1 mg/dL (1.8-2.4) Troponin I Quantitative 0.553 ng/mL (0.000-0.055) Procalcitonin 0.70 ng/mL (0.00-0.10) Comment Review of Relevant I have reviewed the following items alexandra (where applicable) has been applied. Medications: Current Medications Medications (Trade) Dose Ordered Sig/Jesse Route PRN Reason Start Time Stop Time Status Last Admin Dose Admin Morphine Sulfate (Morphine Sulfate) 4 mg PRN Q2HR PRN IVP MODERATE TO SEVERE PAIN 11/13/19 14:00 11/14/19 08:16 Ondansetron HCl (Zofran) 4 mg PRN Q6HRS PRN IVP NAUSEA/VOMITING 11/13/19 19:30 11/14/19 00:13 Fentanyl Citrate 30 ml @ 0 mls/hr CONT PRN IV SEE PROTOCOL 11/14/19 08:15 11/14/19 12:04 Midazolam HCl 100 ml @ 0 mls/hr CONT PRN IV SEE PROTOCOL 11/14/19 08:15 11/14/19 09:14 Metronidazole 100 ml @ 100 mls/hr Q8HRS IV 11/14/19 12:00 11/14/19 12:05 Micafungin Sodium 100 mg/Dextrose 100 ml @ 100 mls/hr Q24H IV 11/14/19 09:00 11/14/19 12:07 Vancomycin HCl 2 gm/Sodium Chloride 500 ml @ 250 mls/hr 1X ONCE IV 11/14/19 10:00 11/14/19 11:59 DC 11/14/19 12:04 Sodium Chloride 1,000 ml @ 500 mls/hr Q2H IV 11/14/19 11:30 11/14/19 15:29 11/14/19 12:05 Justicifation of Admission Dx: Justifications for Admission: Justification of Admission Dx: Yes Comminuty Aquired Pneumonia: Med-High Risk Pt Sepsis: Infection FLORENTINO HUTTON MD Nov 14, 2019 12:31
[2019-11-14] MEDS: NOREPINEPHRINE VIAL 8 MG in IV DEXTROSE 5% 250 ML IV PRN ×2 (12:36→20:56)
--- NOTE | 2019-11-14 12:46 | NUR ---
Pt had a large yaakov bloody stool after return from CT scan, and when his OG returned to suction yaakov blood came out. Approx 200ml of blood from the OG. Dr. Vaughn, Dr. Dawson, and Dr. Spencer notified. Aspirin not given and heparin drip not started. New orders received to draw labs at 1500.
[2019-11-14 12:49] LABS: % BANDS 16 % (0-9); % LYMPHS 2 % (24-48); % MONOS 1 % (0-10); % SEGS 81 % (35-66); NUCLEATED RBC 1; PLT ESTIMATE INCREASED (ADEQUATE)
[2019-11-14 12:51] LABS: ANISOCYTOSIS SLIGHT; HYPOCHROMIA MOD
[2019-11-14 12:52] LABS: TOXIC GRANULATION MOD
[2019-11-14 12:53] LABS: PLATELET CLUMP PRESENT
--- NOTE | 2019-11-14 13:19 | RAD ---
EXAM: CT Head without IV contrast INDICATION: Patient fell and hit his head. Was on Eliquis and became unresponsive. TECHNIQUE: Multi-detector row CT images were obtained of the head without the use of IV contrast. All CT scans performed at this facility utilize dose optimization techniques as appropriate to the exam, including the following: Automated exposure control and adjustment of the mA and/or KV according to patient size (this includes techniques or standardized protocols for targeted exams where dose is indication/reason for exam). COMPARISON: None FINDINGS: BRAIN PARENCHYMA: No evidence of acute intraparenchymal hemorrhage or infarct. No abnormal parenchymal density or mass. VENTRICLES & EXTRA-AXIAL SPACES: Ventricles are within normal limits. Basilar cisterns are patent. No pathologic extra-axial fluid collection or mass. ORBITS: Orbital contents are unremarkable. SINUSES: Visualized paranasal sinuses and mastoid air cells are clear. OSSEOUS & SOFT TISSUES: Calvarium and skull base are intact. IMPRESSION: No acute intracranial pathology. In particular, no evidence of acute intracranial hemorrhage EXAM: CT Abdomen and Pelvis with IV contrast INDICATION: Reason: abd pain / Spl. Instructions: / History: TECHNIQUE: Multi-detector row CT images were acquired from the lung bases through the abdomen and pelvis with the use of IV contrast. Sagittal and coronal images were acquired from the transaxial data. All CT scans performed at this facility utilize dose optimization techniques as appropriate to the exam, including the following: Automated exposure control and adjustment of the mA and/or KV according to patient size (this includes techniques or standardized protocols for targeted exams where dose is indication/reason for exam). IV CONTRAST: Administered ORAL CONTRAST: Not administered COMPARISON: Chest abdomen pelvis CT with IV contrast of 10/22/2019 FINDINGS: LOWER CHEST: Not fully included in the [id number] visualized portion shows atelectatic changes in the left lower lobe and a small left pleural effusion, similar to prior. LIVER: Diffuse hypoattenuation compatible fatty infiltration. BILIARY SYSTEM: Gallbladder is unremarkable. Bile ducts are not dilated. PANCREAS: Replaced by gas and soft tissue debris-containing collection with a new tract of gas extending to the skin surface in the right upper quadrant abdominal wall. SPLEEN: Unremarkable ADRENALS: Unremarkable KIDNEYS & URETERS: Unremarkable BLADDER: Decompressed by an indwelling [place] catheter. REPRODUCTIVE ORGANS: Unremarkable GASTROINTESTINAL: Enteric contrast is present in the cecum and terminal ileum. There is some distended loops of large bowel. Rest of the small bowel is largely collapsed. A percutaneous gastrostomy tube is present with the tip in the proximal jejunum. An orogastric tube is also present with the tip retroflexed in the gastric fundus. The appendix is normal. MESENTERY/PERITONEUM/RETROPERITONEUM: There is moderate mesenteric edema in the left upper quadrant abdomen, tiny foci of extraluminal gas are present superficial to the greater curvature of the stomach. Moderate intermediate density ascites is present VASCULAR: IVC is slitlike in caliber. LYMPH NODES: No adenopathy OSSEOUS & SOFT TISSUES: Unremarkable IMPRESSION: 1. Gas containing fluid collection replacing the pancreas, with an intact of gas extending to the skin surface in the right upper quadrant abdomen. Findings suspicious for an abscess either related to pancreatic necrosis or complication of pancreatectomy. Correlate clinically. 2. Moderate amount of ascites and mesenteric edema with abdominal distention and severe hepatic steatosis. Correlate clinically for any evidence of hypoperfusion injury or ischemia. 3. Foci of gas in the left upper quadrant abdomen are new in the presence of a percutaneous gastrostomy tube. Correlate for any history of recent instrumentation. A contained bowel perforation can yield this appearance. Preliminary findings discussed with Dr. Salinas by telephone at 12:45 PM on 11/14/2019, with an additional update at 1:15 PM on 11/14/2019. Electronically signed by: Eda Sargent MD (11/14/2019 1:16 PM) [id number]
[2019-11-14] MEDS: MEROPENEM 500 MG in IV NORMAL SALINE 50ML 50 ML IV SCH ×2 (13:31→17:36)
[2019-11-14 14:13] LABS: BASO # 0.1 x10^3/uL (0.0-0.2); BASO % 0 % (0-3); EOS % 0 % (0-3); LYMPH # 0.4 x10^3/uL (1.0-4.8); LYMPH % 1 % (24-48); MEAN CORPUSCULAR HEMOGLOBIN 26 pg (25-35); MEAN CORPUSCULAR HGB CONC 31 g/dL (31-37); MEAN CORPUSCULAR VOLUME 85 fL (79-100); MONO # 1.1 x10^3/uL (0.0-1.1); MONO % 3 % (0-9); NEUT # 35.4 x10^3/uL (1.8-7.7); NEUT % 96 % (31-73); PLATELET COUNT 463 x10^3/uL (140-400); RED BLOOD COUNT 2.41 x10^6/uL (4.30-5.70); RED CELL DISTRIBUTION WIDTH 20.5 % (11.5-14.5); WHITE BLOOD COUNT 37.1 x10^3/uL (4.0-11.0)
[2019-11-14 14:17] LABS: HEMATOCRIT 20.4 % (39.0-53.0); HEMOGLOBIN 6.4 g/dL (13.0-17.5)
[2019-11-14 14:27] LABS: ALBUMIN 0.8 g/dL (3.4-5.0); ALBUMIN/GLOBULIN RATIO 0.2 (1.0-1.7); CALCIUM 6.7 mg/dL (8.5-10.1); CREATININE 1.1 mg/dL (0.7-1.3); GFR 86.1; POTASSIUM 3.7 mmol/L (3.5-5.1); TOTAL PROTEIN 4.8 g/dL (6.4-8.2)
--- NOTE | 2019-11-14 14:36 | NUR ---
Intra abdominal pressure checked per Dr. Mcpherson, reading is 4mmHg.
[2019-11-14] MEDS ORDERED: IOHEXOL 240 MG/ML 50ML VIAL. ONE ×3 (15:06→16:14)
[2019-11-14] MEDS ORDERED: LIDOCAINE WITH 8.4% SOD BICARB 3 ML DISP.SYRIN. ONE (15:06)
--- NOTE | 2019-11-14 15:26 | NUR ---
Pt to IR for IVC filter placement.
[2019-11-14] MEDS ORDERED: IOHEXOL 240 MG/ML 50ML VIAL. IJ ONE (16:15)
[2019-11-14] MEDS ORDERED: LIDOCAINE WITH 8.4% SOD BICARB 3 ML DISP.SYRIN. INJ ONE (16:15)
[2019-11-14] MEDS ORDERED: levETIRAcetam 1,000 MG in IV DEXTROSE 5% 100ML 100 ML IV ONE (16:15)
--- NOTE | 2019-11-14 16:20 | CARD ---
MR#: [id number] Date of Study: 11/14/2019 Ordering Physician: TAYA PEREIRA, Referring Physician: TAYA PEREIRA, Tech: Aniya Morgan RAISSA APPROVED REPORT EXAM: Two-dimensional and M-mode echocardiogram with Doppler and color Doppler. Other Information Quality : Excellent INDICATION Post Cardiac Arrest 2D DIMENSIONS RVDd3.1 (2.9-3.5cm)Left Atrium(2D)2.7 (1.6-4.0cm) IVSd1.5 (0.7-1.1cm)Aortic Root(2D)3.2 (2.0-3.7cm) LVDd3.5 (3.9-5.9cm)LVOT Diameter2.0 (1.8-2.4cm) PWd1.3 (0.7-1.1cm)LVDs1.9 (2.5-4.0cm) FS (%) 30.0 %SV39.9 ml LVEF(%)60.0 (>50%) Aortic Valve AoV Peak Elliot.118.9cm/sAoV VTI17.4cm AO Peak GR.5.7mmHgLVOT VTI 16.50cm AO Mean GR.4mmHgAVA (VTI)3.10cm2 Mitral Valve MV E Eqlfuxvk14.9cm/sMV DECEL SETF098xh MV A Ngyeohob15.4cm/sE/A Ratio0.7 TDI Lateral E' P. V8.50cm/sMedial E' P. V5.66cm/s E/Lateral E'7.6E/Medial E'11.5 Pulmonary Vein S1 Kcxtplqv66.9cm/sS2 Sjadqgam29.14cm/s D2 Wxnqpmmr04.1cm/s LEFT VENTRICLE The left ventricle cavity is small. There is moderate concentric left ventricular hypertrophy. The le ft ventricular systolic function is normal and the ejection fraction is within normal range. The Ejec tion Fraction is 60-65%. There is normal LV segmental wall motion. Transmitral Doppler flow pattern i s Grade I-abnormal relaxation pattern. RIGHT VENTRICLE The right ventricle is mildly to moderately dilated. The right ventricular systolic function is mayda l. ATRIA The left atrium size is normal. The right atrium size is normal. The interatrial septum is intact wit h no evidence for an atrial septal defect or patent foramen ovale as noted on 2-D or Doppler imaging. AORTIC VALVE The aortic valve is normal in structure and function. Doppler and Color Flow revealed no significant aortic regurgitation. There is no significant aortic valvular stenosis. MITRAL VALVE The mitral valve is normal in structure and function. There is no evidence of mitral valve prolapse. There is no mitral valve stenosis. Doppler and Color Flow revealed no mitral valve regurgitation note d. TRICUSPID VALVE The tricuspid valve is normal in structure and function. Doppler and Color Flow revealed no tricuspid valve regurgitation noted. There is no tricuspid valve stenosis. PULMONIC VALVE The pulmonic valve is not well visualized. Doppler and Color Flow revealed no pulmonic valvular regur gitation. There is no pulmonic valvular stenosis. GREAT VESSELS The aortic root is normal in size. The ascending aorta is not well seen. The IVC was not visualized. PERICARDIAL EFFUSION There is a trace circumferential pericardial effusion. Critical Notification Critical Value: No <Conclusion> There is moderate concentric left ventricular hypertrophy. The left ventricular systolic function is normal and the ejection fraction is within normal range. Th e Ejection Fraction is 60-65%. There is normal LV segmental wall motion. The right ventricle is mildly to moderately dilated. Signed by : Mathew Spencer, Electronically Approved : 11/14/2019 16:19:38
[2019-11-14] MEDS: VANCOMYCIN PER PHARMACY MC PRN ×2 (16:40→16:41)
--- NOTE | 2019-11-14 17:11 | RAD ---
Procedure: Ultrasound-guided placement of right internal jugular central venous catheter11/14/2019 3:07 PM Clinical Indication: Multiple IV medications. Patient critically ill. Status post code Discussion: The risks and benefits of the procedure were discussed the patient and/or their inside sales account representative. Informed consent was obtained. A timeout procedure was performed. All elements of maximal sterile barrier technique including the use of a cap, mask, sterile gown, sterile gloves, large sterile sheet, appropriate hand hygiene, and 2% chlorhexidine for cutaneous antisepsis (or acceptable alternative antiseptic per current guidelines) were followed for this procedure. The patient was prepped and draped in the usual sterile fashion. Ultrasound interrogation of the right neck revealed patency and compressibility of the right internal jugular vein. A 21-gauge micropuncture was then used to gain access to this vein under ultrasound guidance. A hard copy ultrasound image was recorded. A guidewire was advanced centrally. 5 Hebrew sheath was placed. Over a wire following dilatation, a triple-lumen central venous catheter was advanced centrally. Catheter was found to flush and aspirate normally. Follow-up chest radiograph demonstrates tip at the cavoatrial junction. Catheter secured in place and a sterile dressing was applied. No immediate complications were identified. Impression: Successful ultrasound-guided placement of right internal jugular triple-lumen central venous catheter
--- NOTE | 2019-11-14 17:20 | RAD ---
11/14/2019 11/14/2019 3:09 PM Procedure: 1. Inferior venacavogram 2. Placement of bilateral common iliac vein filters Clinical Indication: Bilateral lower extremity DVT, active bleeding the need for cessation of blood thinners. Discussion: The procedure was explained in its entirety to the patient or the patients designated cash applications representative by a member of the treatment team, including a discussion of the risks, benefits and commonly accepted alternatives to the procedure, as well as the expected consequences of no therapy whatsoever. Discussion of the risks included, but was not limited to, those that are most frequent and those that are rare but possibly severe or life-threatening, as well as the possibility of unforeseen complications. All elements of maximal sterile barrier technique including the use of a cap, mask, sterile gown, sterile gloves, large sterile sheet, appropriate hand hygiene, and 2% chlorhexidine for cutaneous antisepsis (or acceptable alternative antiseptic per current guidelines) were followed for this procedure. Ultrasound evaluation demonstrates right internal jugular vein to be patent and compressible. 1% lidocaine was administered for local anesthesia. The vein was accessed using micropuncture technique. Reference ultrasound images were saved the medical record. Sheath was advanced into the inferior vena cava. An inferior venacavogram was obtained demonstrating compression of the IVC above and below the level of the renal veins. This correlates to an area of a large pseudocyst/abscess in the pancreatic bed, identified on recent CT imaging. Caudad to the area of IVC compression of the cava is dilated. The diameter of the cava was found to be significantly wider than the markers present on the denial IVC filter sheath. Therefore, bilateral common iliac vein filters were deployed. The patient received Alis filter in the right common iliac vein and a option filter in the left common iliac vein. Both filters were well seated. Sheath was removed. Manual pressure was held. No immediate complications were identified. Total fluoroscopy time: 10.1 min Dose area product: 309 Gycm2 Impression: 1. External compression of the IVC as described above. 2. Bilateral common iliac vein IVC filters placed. 3. Recommend follow-up CT imaging, and if collections further decompressed, and compression resolved, perhaps a traditional IVC filter can be placed. Alternatively if the patient again becomes a candidate for anticoagulation, recommend removal of the iliac filters.
--- NOTE | 2019-11-14 19:06 | PDOC5 ---
CODE REPORT CODE REPORT CODE BLUE called overhead November 14, 2019 approximately 7:30 AM, ER code team immediately responded Brief HPI obtained from nurse, also briefly discussed case with anesthesiologist in room who is prepping to intubate patient who had GCS less than 8. ACLS started immediately, x1 amp bicarb administered in addition to x1 epi after right lower extremity IO access obtained Patient had 2 unsuccessful rounds of ACLS showing PEA, patient intubated after x3 attempts by anesthesiologist and confirmed with successful color change and bilateral chest wall auscultation Additional x1 epi administered Pulse obtained, meaningful electrical activity observed Patient observed and despite above, remained hemodynamically stable. Continued to bag patient with BVM. Meaningful bilateral ocular movements observed. Patient stabilized satisfactory enough to transport to ICU for further medical intervention. Attending physician called by nursing staff and updated on patient condition. Please defer to code cart for additional details as needed AYSHA VARELA DO Nov 14, 2019 19:06
[2019-11-14] MEDS: ALPRAZolam 0.5 MG TABLET PO SCH (21:00)
[2019-11-14] MEDS ORDERED: levETIRAcetam 500 MG in IV DEXTROSE 5% 100ML 100 ML IV SCH (21:00)
[2019-11-14] MEDS ORDERED: levETIRAcetam 500 MG in IV DEXTROSE 5% 100ML 100 ML IV ONE (22:30)
[2019-11-14] MEDS ORDERED: VALPROIC ACID (AS SODIUM SALT) 1,000 MG in IV DEXTROSE 5% 50 ML IV ONE (23:00)
--- NOTE | 2019-11-14 23:03 | CONS ---
DATE OF CONSULTATION: 11/14/2019 REFERRING PHYSICIAN: Dr. Polk. REASON FOR CONSULTATION: Cardiopulmonary arrest with intractable seizure following. HISTORY OF PRESENT ILLNESS: The patient is a 49-year-old man with an extremely complicated medical history. He was hospitalized at [facility] in 05/2019 with pancreatic necrosectomy, gastrostomy tube placement and tracheostomy for chronic respiratory failure. After his prolonged hospital stay, he was transferred to [facility]. He was subsequently decannulated. He was brought into the hospital with complaints of swelling of his ankles and was found to have deep venous thrombosis. He underwent a CAT scan of his thorax, which did not reveal pulmonary embolus. He was on anticoagulant. His PEG tube had been clogged. Once in the hospital, he underwent a cardiopulmonary arrest. The entire duration was about 6 minutes until return of spontaneous circulation. He went into PEA. He is now intubated and ventilated. He has been having seizure activity since the code. He was given a load of Keppra with maintenance as well as Ativan, which was not helpful. He has been placed on an IV drip of Versed, which has not stopped the activity. He is on a ventilator, unresponsive. In addition, following CPR and resuscitation, he had a large bloody stool. His hemoglobin is dropping. He has not received further anticoagulation. PAST MEDICAL HISTORY: 1. Pancreatitis. 2. Status post exploratory laparotomy with pancreatic necrosectomy. 3. History of G-tube placement. 4. History of prolonged respiratory failure requiring tracheostomy with subsequent decannulation. 5. History of hepatitis B. 6. History of gallstone pancreatitis. 7. History of hemodialysis for renal failure, which was subsequently stopped. 8. Cephalic vein thrombosis in 06/2019. ALLERGIES: No known allergies to drugs. MEDICATIONS PRIOR TO ADMISSION: Include acetaminophen, alprazolam 0.5 mg at night, buspirone 10 mg twice per day, iron sulfate 625 mg twice per day, gabapentin 100 mg 3 times a day, mirtazapine 15 mg at night, oxycodone 15 mg every 6 hours as needed, pantoprazole 40 mg, and trazodone 50 mg at night. FAMILY HISTORY: Noncontributory. SOCIAL HISTORY: Not a smoker. He does not drink alcohol or use recreational drugs. He is and lives with his . REVIEW OF SYSTEMS: Not obtainable. PHYSICAL EXAMINATION: VITAL SIGNS: The blood pressure was 107/65, pulse 122, respirations 21, temperature 98.8 degrees Fahrenheit. Oximetry was 100% on the ventilator. His weight was 76.7 kilograms, height 69 inches with a calculated body mass index of 25. NEUROLOGIC: He was intubated, ventilated and sedated. He was having jerking activity of his face and left arm and right shoulder. This also affected his left leg. I did not see any movement of the hand and forearm or the right leg. The eyes were open and deviated to the left. There was no focus. He did not respond to visual threat or clap. He did not have good pupillary reactivity. There was oculocephalic reflex was absent. Corneal reflex was absent. The jerking movements were irregular involving the eyes and face and primarily left arm and leg. Muscle bulk was symmetric. Tone was flaccid on the right. Tone was not spastic on the left, but it was difficult to assess with the ongoing seizure activity. I was unable to assess power. I was unable to assess reflux. Toes were not upgoing. Coordination testing was not possible. He did not respond to nail bed pressure on any of the 4 extremities. Toes were not up or downgoing. He had severe edema of his legs and feet with pitting at the feet. There was less edema in the arms and hands. LABORATORY RESULTS: CBC was performed 11/14/2019 revealing a white count elevated to 37.1. Hemoglobin had dropped to 6.4 and hematocrit 20.4 with platelet count elevated at 463. Hemoglobin on admission was 8.4. Chemistries were performed 11/14/2019 with a sodium of 134. The potassium, chloride, and CO2 were normal. BUN and creatinine were not elevated and GFR calculated at 86.1. Calcium was low at 6.7. Total bilirubin was normal, but AST was elevated at 57 and alkaline phosphatase at 451. Total protein was 4.8 with albumin being low at 0.8. Troponin was elevated to 2.220. Urinalysis revealed a large amount of blood with trace leukocyte esterase, greater than 40 red cells and 5-10 white cells with a few squamous epithelial cells. There was moderate bacteria. PT/INR was 1.6 and PTT was 42. Chest x-ray was performed 11/14/2019 revealing a right central line into the right atrium, pleural effusions, left lobe atelectasis or infiltrate, nasogastric tube in the stomach, and an endotracheal tube at the level of the clavicles. Abdominal pelvic CT scan revealed gas containing fluid collection replacing the pancreas with an intact gastric stenting to the skin surface of the right upper quadrant abdomen suspicious for abscess. There was a moderate amount of ascites and mesenteric edema with abdominal distention and severe hepatic steatosis. There were foci of gas in the left upper quadrant of the abdomen new in the presence of the percutaneous gastrostomy tube. CT scan of the brain was performed 11/14/2019 and revealed no acute intracranial abnormality. IMPRESSION: The patient is a 49-year-old man who has had extensive health complications. He had a prolonged hospitalization in May, which resulted in tracheostomy and PEG and a long stay in [facility]. He has now returned and went into cardiopulmonary arrest. He may have an abscess in his abdomen as well as free air. He had a GI bleed with a drop in hemoglobin. He had status epilepticus and is unresponsive to anticonvulsants. Prognosis is poor. The seizure is a consequence of the cerebral damage in itself is not exactly the problem. It is the symptoms. RECOMMENDATIONS: I will give an extra dose of Keppra and increase the dosage is to 1000 mg intravenous twice per day. I will give a dose of Depacon 1000 mg and subsequently continue Depacon 500 mg every 8 hours. He can continue with intravenous Versed. I will be happy to reevaluate. NACHO WILKERSON MD DR: JACQUELIN/justyn JOB#: [id number] / [id number]
[2019-11-14 23:54] LABS: HEMATOCRIT 29.6 % (39.0-53.0); HEMOGLOBIN 9.5 g/dL (13.0-17.5); RED BLOOD COUNT 3.52 x10^6/uL (4.30-5.70)
[2019-11-14 23:58] LABS: WHITE BLOOD COUNT 48.7 x10^3/uL (4.0-11.0)
[2019-11-15] VITALS (33 sets, daily range): BP systolic 80–108; BP diastolic 57–79
[2019-11-15] MEDS: VANCOMYCIN 1.25 GM in IV NORMAL SALINE 250ML 250 ML IV SCH ×2 (00:18→14:17)
[2019-11-15] MEDS: MEROPENEM 500 MG in IV NORMAL SALINE 50ML 50 ML IV SCH ×2 (00:19→05:29)
[2019-11-15] MEDS ORDERED: ACETAMINOPHEN 650 MG/20.3 ML SOLUTION. PEG PRN (04:15)
[2019-11-15] MEDS: VALPROIC ACID (AS SODIUM SALT) 500 MG in IV DEXTROSE 5% 50 ML IV SCH ×3 (05:39→21:30)
--- NOTE | 2019-11-15 06:11 | PDOC ---
Infectious Disease Note Subjective Subjective Events noted. Per nursing he called to go to bathroom and when aid went in he was on floor face down unresponsive was breathing . 02 sat 42. Bagging. Code cart rate 40 - 50 then down to 30s then no pulse. Three rounds CPR/Intubated IO place RLE. R Ej placed Intubated Vital Sign Vital Signs Vital Signs Date Time Temp Pulse Resp B/P (MAP) Pulse Ox O2 Delivery O2 Flow Rate FiO2 11/15/19 05:00 136 27 103/65 (78) 100 Ventilator 11/15/19 04:00 101.8 101.8 Physical Exam PHYSICAL EXAM GENERAL: Thin, cachectic male Intubated HEENT: Norm conj. ETT NECK: Supple, no lymphadenopathy. LUNGS: Decreased breath sounds at the bases, increased Resp rate HEART: S1, S2. tachy ABDOMEN: Distended, soft, nontender, fistula in place - bloody drainage, GJ tube in place. - [place] with 3 plus edema EXTREMITIES: Edema, no cyanosis.RLE IO - old site clean DERMATOLOGIC: Warm, dry. 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 NEUROLOGIC: unable to assess PSYCHIATRIC: Unable to assess DERMATOLOGIC: No generalized rash RIJ - clean. Labs Lab Laboratory Tests Test 11/14/19 07:27 11/14/19 09:01 11/14/19 09:25 11/14/19 13:55 Glucose (Fingerstick) 55 mg/dL (70-99) O2 Saturation 92 % (92-99) Arterial Blood pH 7.43 (7.35-7.45) Arterial Blood pCO2 at Patient Temp 32 mmHg (35-46) Arterial Blood pO2 at Patient Temp 75 mmHg (75-108) Arterial Blood HCO3 20 mmol/L (21-28) Arterial Blood Base Excess -4 mmol/L (-3-3) FiO2 40 White Blood Count 30.5 x10^3/uL (4.0-11.0) 37.1 x10^3/uL (4.0-11.0) Red Blood Count 2.77 x10^6/uL (4.30-5.70) 2.41 x10^6/uL (4.30-5.70) Hemoglobin 7.5 g/dL (13.0-17.5) 6.4 g/dL (13.0-17.5) Hematocrit 24.0 % (39.0-53.0) 20.4 % (39.0-53.0) Mean Corpuscular Volume 87 fL (79-100) 85 fL (79-100) Mean Corpuscular Hemoglobin 27 pg (25-35) 26 pg (25-35) Mean Corpuscular Hemoglobin Concent 31 g/dL (31-37) 31 g/dL (31-37) Red Cell Distribution Width 20.4 % (11.5-14.5) 20.5 % (11.5-14.5) Platelet Count 444 x10^3/uL (140-400) 463 x10^3/uL (140-400) Neutrophils (%) (Auto) 97 % (31-73) 96 % (31-73) Lymphocytes (%) (Auto) 2 % (24-48) 1 % (24-48) Monocytes (%) (Auto) 1 % (0-9) 3 % (0-9) Eosinophils (%) (Auto) 0 % (0-3) 0 % (0-3) Basophils (%) (Auto) 0 % (0-3) 0 % (0-3) Neutrophils # (Auto) 29.6 x10^3/uL (1.8-7.7) 35.4 x10^3/uL (1.8-7.7) Lymphocytes # (Auto) 0.5 x10^3/uL (1.0-4.8) 0.4 x10^3/uL (1.0-4.8) Monocytes # (Auto) 0.4 x10^3/uL (0.0-1.1) 1.1 x10^3/uL (0.0-1.1) Eosinophils # (Auto) 0.0 x10^3/uL (0.0-0.7) 0.0 x10^3/uL (0.0-0.7) Basophils # (Auto) 0.0 x10^3/uL (0.0-0.2) 0.1 x10^3/uL (0.0-0.2) Segmented Neutrophils % 81 % (35-66) Band Neutrophils % 16 % (0-9) Lymphocytes % 2 % (24-48) Monocytes % 1 % (0-10) Nucleated Red Blood Cells 1 Toxic Granulation Mod Platelet Estimate Increased (ADEQUATE) Platelet Clumps, EDTA Present Large Platelets Occ Hypochromasia Mod Anisocytosis Slight Sodium Level 132 mmol/L (136-145) 134 mmol/L (136-145) Potassium Level 4.1 mmol/L (3.5-5.1) 3.7 mmol/L (3.5-5.1) Chloride Level 101 mmol/L (98-107) 103 mmol/L (98-107) Carbon Dioxide Level 22 mmol/L (21-32) 25 mmol/L (21-32) Anion Gap 9 (6-14) 6 (6-14) Blood Urea Nitrogen 14 mg/dL (8-26) 14 mg/dL (8-26) Creatinine 1.3 mg/dL (0.7-1.3) 1.1 mg/dL (0.7-1.3) Estimated GFR (Cockcroft-Gault) 71.0 86.1 Glucose Level 141 mg/dL (70-99) 123 mg/dL (70-99) Lactic Acid Level 7.0 mmol/L (0.4-2.0) 3.9 mmol/L (0.4-2.0) Calcium Level 7.1 mg/dL (8.5-10.1) 6.7 mg/dL (8.5-10.1) Magnesium Level 2.1 mg/dL (1.8-2.4) Troponin I Quantitative 0.553 ng/mL (0.000-0.055) 2.220 ng/mL (0.000-0.055) Procalcitonin 0.70 ng/mL (0.00-0.10) BUN/Creatinine Ratio 13 (6-20) Total Bilirubin 1.0 mg/dL (0.2-1.0) Aspartate Amino Transf (AST/SGOT) 57 U/L (15-37) Alanine Aminotransferase (ALT/SGPT) 46 U/L (16-63) Alkaline Phosphatase 451 U/L (46-116) Total Protein 4.8 g/dL (6.4-8.2) Albumin 0.8 g/dL (3.4-5.0) Albumin/Globulin Ratio 0.2 (1.0-1.7) Test 11/14/19 17:53 11/14/19 23:15 Glucose (Fingerstick) 101 mg/dL (70-99) White Blood Count 48.7 x10^3/uL (4.0-11.0) Red Blood Count 3.52 x10^6/uL (4.30-5.70) Hemoglobin 9.5 g/dL (13.0-17.5) Hematocrit 29.6 % (39.0-53.0) Mean Corpuscular Volume 84 fL (79-100) Mean Corpuscular Hemoglobin 27 pg (25-35) Mean Corpuscular Hemoglobin Concent 32 g/dL (31-37) Red Cell Distribution Width 19.0 % (11.5-14.5) Platelet Count 408 x10^3/uL (140-400) Micro CT abd 11/13 IMPRESSION: 1. Gas containing fluid collection replacing the pancreas, with an intact of gas extending to the skin surface in the right upper quadrant abdomen. Findings suspicious for an abscess either related to pancreatic necrosis or complication of pancreatectomy. Correlate clinically. 2. Moderate amount of ascites and mesenteric edema with abdominal distention and severe hepatic steatosis. Correlate clinically for any evidence of hypoperfusion injury or ischemia. 3. Foci of gas in the left upper quadrant abdomen are new in the presence of a percutaneous gastrostomy tube. Correlate for any history of recent instrumentation. A contained bowel perforation can yield this appearance. CT head 11/13 IMPRESSION: No acute intracranial pathology. In particular, no evidence of acute intracranial hemorrhage IMPRESSION: No pulmonary embolism. Small bilateral pleural effusions. This is new on the right side. This was seen previously on the left side but has increased. There is loculated pleural fluid within the left major fissure. There is associated compressive atelectasis or infiltrate within the left lower lobe which has not improved from October 22, 2019. Given posterior retraction of the major fissure on the left side, this is indicative of volume loss more typical of atelectasis but certainly underlying pneumonia may be present as well. Microbiology 11/08/19 Blood Culture - Preliminary, Resulted NO GROWTH AFTER 2 DAYS 11/07/19 Urine Culture - Final, Complete Objective Assessment Fever ? PRBCs/seizures Leukocytosis - seizures/abn CT scan/PRBCs S/p Seizures 11/13 Elevated Troponin S/p IVC (actually in iliac) 11/13 Acute hypoxic resp failure intubated PEA Gj tube replaced 11/12 ? Loculated LL effusion on CT 11/12 Leukocytosis ? reactive 1. Bilateral lower extremity deep venous thrombosis 11/06 2. Clostridium difficile colitis 10/22 3. Leukocytosis with bandemia- better off abx 4. Left basilar pleural effusion and consolidation, chronic. 5. History of severe pancreatitis, status post exploratory laparotomy with pancreatic necrosectomy, cholecystotomy tube placement, gastrostomy tube placement, tracheostomy placement, five drains. Ascitic fluid drained status post tracheostomy recovered, history of hepatitis B during last admission in 07/2019. 6. Severe protein malnutrition Plan Plan of Care On Levophed - tapering off Blood and sputum cults - pending 11/13 Began IV Flagyl/Vanc/Meropenem/Micafungin 11/13 Given seizure will d/c Meropenem and begin Cefepime 11/14 - cautious with dosing with seizure F/u labs/cults Await Gen surg f/u re - CT D/w nursing Critically ill [phone] LE Dickinson MD Nov 15, 2019 06:11
[2019-11-15 06:45] LABS: CALCIUM 6.8 mg/dL (8.5-10.1); CREATININE 1.5 mg/dL (0.7-1.3); GFR 60.2; POTASSIUM 4.3 mmol/L (3.5-5.1)
[2019-11-15 07:22] LABS: BASO # 0.1 x10^3/uL (0.0-0.2); BASO % 0 % (0-3); EOS % 0 % (0-3); HEMATOCRIT 27.8 % (39.0-53.0); HEMOGLOBIN 8.9 g/dL (13.0-17.5); LYMPH # 0.5 x10^3/uL (1.0-4.8); LYMPH % 1 % (24-48); MEAN CORPUSCULAR HEMOGLOBIN 27 pg (25-35); MEAN CORPUSCULAR HGB CONC 32 g/dL (31-37); MEAN CORPUSCULAR VOLUME 86 fL (79-100); MONO # 1.3 x10^3/uL (0.0-1.1); MONO % 2 % (0-9); NEUT # 60.3 x10^3/uL (1.8-7.7); NEUT % 97 % (31-73); PLATELET COUNT 279 x10^3/uL (140-400); RED BLOOD COUNT 3.25 x10^6/uL (4.30-5.70); RED CELL DISTRIBUTION WIDTH 19.3 % (11.5-14.5)
[2019-11-15 07:53] LABS: WHITE BLOOD COUNT 62.1 x10^3/uL (4.0-11.0)
[2019-11-15] MEDS: MIDAZOLAM 100mg/100ml NS BAG 100 ML IV PRN (08:36)
[2019-11-15] MEDS: MICAFUNGIN 100 MG in IV DEXTROSE 5% 100ML 100 ML IV SCH (08:37)
[2019-11-15] MEDS: levETIRAcetam 1,000 MG in IV DEXTROSE 5% 100ML 100 ML IV SCH ×2 (08:48→21:20)
[2019-11-15] MEDS: CEFEPIME HCL IV Push 1 GM VIAL. IVP SCH ×3 (08:58→21:31)
[2019-11-15] MEDS: VANCOMYCIN 125 MG/2.5 ML ORAL SOLUTION. PO SCH ×4 (08:59→21:21)
[2019-11-15] MEDS: LACTOBACILLUS RHAMNOSUS GG 1 CAPSULE. PO SCH ×2 (08:59→21:22)
[2019-11-15] MEDS: PANTOPRAZOLE 40 MG TABLET.DR. PO SCH (08:59)
[2019-11-15] MEDS: FERROUS SULFATE 325 MG TABLET. PO SCH ×2 (08:59→17:00)
[2019-11-15] MEDS ORDERED: APIXABAN 5 MG TABLET. PO SCH (09:00)
[2019-11-15 09:02] LABS: BASE EXCESS ABG -8 mmol/L (-3-3); HCO3 ABG 15 mmol/L (21-28); PCO2 ABG 23 mmHg (35-46); PO2 ABG 140 mmHg (75-108); SAT O2 ABG 98 % (92-99)
[2019-11-15 09:11] LABS: CORRECTED PCO2 ABG 25 mmHg; CORRECTED PH ABG 7.41; CORRECTED PO2 ABG 149 mmHg
[2019-11-15 09:34] LABS: FIO2 ABG 45% VENT
--- NOTE | 2019-11-15 10:05 | PDOC ---
PULMONARY PROGRESS NOTES Subjective disregard this note S/P cardiac arrest with 3 rounds of CPR and EPI/ bicarb this am , intubated during cardiac arrest, now in ICU Vitals Vital Signs Date Time Temp Pulse Resp B/P (MAP) Pulse Ox O2 Delivery O2 Flow Rate FiO2 11/15/19 09:06 100 Ventilator 11/15/19 06:00 136 26 81/68 (72) 11/15/19 04:00 101.8 101.8 Comments unable to report intubated Lungs: Other (decreased BLL) Cardiovascular: S1, S2 Abdomen: Soft, Non-tender, Other Extremities: Other Labs Laboratory Tests Test 11/13/19 11:38 11/13/19 12:03 11/13/19 16:59 11/13/19 21:57 White Blood Count 11.8 x10^3/uL (4.0-11.0) Red Blood Count 3.11 x10^6/uL (4.30-5.70) Hemoglobin 8.6 g/dL (13.0-17.5) Hematocrit 26.2 % (39.0-53.0) Mean Corpuscular Volume 84 fL (79-100) Mean Corpuscular Hemoglobin 28 pg (25-35) Mean Corpuscular Hemoglobin Concent 33 g/dL (31-37) Red Cell Distribution Width 20.4 % (11.5-14.5) Platelet Count 433 x10^3/uL (140-400) Neutrophils (%) (Auto) 89 % (31-73) Lymphocytes (%) (Auto) 6 % (24-48) Monocytes (%) (Auto) 5 % (0-9) Eosinophils (%) (Auto) 0 % (0-3) Basophils (%) (Auto) 0 % (0-3) Neutrophils # (Auto) 10.4 x10^3/uL (1.8-7.7) Lymphocytes # (Auto) 0.8 x10^3/uL (1.0-4.8) Monocytes # (Auto) 0.6 x10^3/uL (0.0-1.1) Eosinophils # (Auto) 0.0 x10^3/uL (0.0-0.7) Basophils # (Auto) 0.0 x10^3/uL (0.0-0.2) Sodium Level 131 mmol/L (136-145) Potassium Level 3.8 mmol/L (3.5-5.1) Chloride Level 99 mmol/L (98-107) Carbon Dioxide Level 28 mmol/L (21-32) Anion Gap 4 (6-14) Blood Urea Nitrogen 13 mg/dL (8-26) Creatinine 0.9 mg/dL (0.7-1.3) Estimated GFR (Cockcroft-Gault) 108.5 Glucose Level 72 mg/dL (70-99) Calcium Level 7.2 mg/dL (8.5-10.1) Glucose (Fingerstick) 88 mg/dL (70-99) 96 mg/dL (70-99) 75 mg/dL (70-99) Test 11/14/19 03:30 11/14/19 07:27 11/14/19 09:01 11/14/19 09:25 White Blood Count 18.1 x10^3/uL (4.0-11.0) 30.5 x10^3/uL (4.0-11.0) Red Blood Count 2.71 x10^6/uL (4.30-5.70) 2.77 x10^6/uL (4.30-5.70) Hemoglobin 7.3 g/dL (13.0-17.5) 7.5 g/dL (13.0-17.5) Hematocrit 22.9 % (39.0-53.0) 24.0 % (39.0-53.0) Mean Corpuscular Volume 85 fL (79-100) 87 fL (79-100) Mean Corpuscular Hemoglobin 27 pg (25-35) 27 pg (25-35) Mean Corpuscular Hemoglobin Concent 32 g/dL (31-37) 31 g/dL (31-37) Red Cell Distribution Width 20.9 % (11.5-14.5) 20.4 % (11.5-14.5) Platelet Count 417 x10^3/uL (140-400) 444 x10^3/uL (140-400) Neutrophils (%) (Auto) 91 % (31-73) 97 % (31-73) Lymphocytes (%) (Auto) 4 % (24-48) 2 % (24-48) Monocytes (%) (Auto) 6 % (0-9) 1 % (0-9) Eosinophils (%) (Auto) 0 % (0-3) 0 % (0-3) Basophils (%) (Auto) 0 % (0-3) 0 % (0-3) Neutrophils # (Auto) 16.4 x10^3/uL (1.8-7.7) 29.6 x10^3/uL (1.8-7.7) Lymphocytes # (Auto) 0.7 x10^3/uL (1.0-4.8) 0.5 x10^3/uL (1.0-4.8) Monocytes # (Auto) 1.0 x10^3/uL (0.0-1.1) 0.4 x10^3/uL (0.0-1.1) Eosinophils # (Auto) 0.0 x10^3/uL (0.0-0.7) 0.0 x10^3/uL (0.0-0.7) Basophils # (Auto) 0.0 x10^3/uL (0.0-0.2) 0.0 x10^3/uL (0.0-0.2) Sodium Level 131 mmol/L (136-145) 132 mmol/L (136-145) Potassium Level 4.0 mmol/L (3.5-5.1) 4.1 mmol/L (3.5-5.1) Chloride Level 100 mmol/L (98-107) 101 mmol/L (98-107) Carbon Dioxide Level 28 mmol/L (21-32) 22 mmol/L (21-32) Anion Gap 3 (6-14) 9 (6-14) Blood Urea Nitrogen 13 mg/dL (8-26) 14 mg/dL (8-26) Creatinine 1.0 mg/dL (0.7-1.3) 1.3 mg/dL (0.7-1.3) Estimated GFR (Cockcroft-Gault) 96.1 71.0 Glucose Level 85 mg/dL (70-99) 141 mg/dL (70-99) Calcium Level 7.2 mg/dL (8.5-10.1) 7.1 mg/dL (8.5-10.1) Glucose (Fingerstick) 55 mg/dL (70-99) O2 Saturation 92 % (92-99) Arterial Blood pH 7.43 (7.35-7.45) Arterial Blood pCO2 at Patient Temp 32 mmHg (35-46) Arterial Blood pO2 at Patient Temp 75 mmHg (75-108) Arterial Blood HCO3 20 mmol/L (21-28) Arterial Blood Base Excess -4 mmol/L (-3-3) FiO2 40 Segmented Neutrophils % 81 % (35-66) Band Neutrophils % 16 % (0-9) Lymphocytes % 2 % (24-48) Monocytes % 1 % (0-10) Nucleated Red Blood Cells 1 Toxic Granulation Mod Platelet Estimate Increased (ADEQUATE) Platelet Clumps, EDTA Present Large Platelets Occ Hypochromasia Mod Anisocytosis Slight Lactic Acid Level 7.0 mmol/L (0.4-2.0) Magnesium Level 2.1 mg/dL (1.8-2.4) Troponin I Quantitative 0.553 ng/mL (0.000-0.055) Procalcitonin 0.70 ng/mL (0.00-0.10) Test 11/14/19 13:55 11/14/19 17:53 11/14/19 23:15 11/15/19 06:15 White Blood Count 37.1 x10^3/uL (4.0-11.0) 48.7 x10^3/uL (4.0-11.0) 62.1 x10^3/uL (4.0-11.0) Red Blood Count 2.41 x10^6/uL (4.30-5.70) 3.52 x10^6/uL (4.30-5.70) 3.25 x10^6/uL (4.30-5.70) Hemoglobin 6.4 g/dL (13.0-17.5) 9.5 g/dL (13.0-17.5) 8.9 g/dL (13.0-17.5) Hematocrit 20.4 % (39.0-53.0) 29.6 % (39.0-53.0) 27.8 % (39.0-53.0) Mean Corpuscular Volume 85 fL (79-100) 84 fL (79-100) 86 fL (79-100) Mean Corpuscular Hemoglobin 26 pg (25-35) 27 pg (25-35) 27 pg (25-35) Mean Corpuscular Hemoglobin Concent 31 g/dL (31-37) 32 g/dL (31-37) 32 g/dL (31-37) Red Cell Distribution Width 20.5 % (11.5-14.5) 19.0 % (11.5-14.5) 19.3 % (11.5-14.5) Platelet Count 463 x10^3/uL (140-400) 408 x10^3/uL (140-400) 279 x10^3/uL (140-400) Neutrophils (%) (Auto) 96 % (31-73) 97 % (31-73) Lymphocytes (%) (Auto) 1 % (24-48) 1 % (24-48) Monocytes (%) (Auto) 3 % (0-9) 2 % (0-9) Eosinophils (%) (Auto) 0 % (0-3) 0 % (0-3) Basophils (%) (Auto) 0 % (0-3) 0 % (0-3) Neutrophils # (Auto) 35.4 x10^3/uL (1.8-7.7) 60.3 x10^3/uL (1.8-7.7) Lymphocytes # (Auto) 0.4 x10^3/uL (1.0-4.8) 0.5 x10^3/uL (1.0-4.8) Monocytes # (Auto) 1.1 x10^3/uL (0.0-1.1) 1.3 x10^3/uL (0.0-1.1) Eosinophils # (Auto) 0.0 x10^3/uL (0.0-0.7) 0.0 x10^3/uL (0.0-0.7) Basophils # (Auto) 0.1 x10^3/uL (0.0-0.2) 0.1 x10^3/uL (0.0-0.2) Sodium Level 134 mmol/L (136-145) 133 mmol/L (136-145) Potassium Level 3.7 mmol/L (3.5-5.1) 4.3 mmol/L (3.5-5.1) Chloride Level 103 mmol/L (98-107) 102 mmol/L (98-107) Carbon Dioxide Level 25 mmol/L (21-32) 21 mmol/L (21-32) Anion Gap 6 (6-14) 10 (6-14) Blood Urea Nitrogen 14 mg/dL (8-26) 16 mg/dL (8-26) Creatinine 1.1 mg/dL (0.7-1.3) 1.5 mg/dL (0.7-1.3) Estimated GFR (Cockcroft-Gault) 86.1 60.2 BUN/Creatinine Ratio 13 (6-20) Glucose Level 123 mg/dL (70-99) 80 mg/dL (70-99) Lactic Acid Level 3.9 mmol/L (0.4-2.0) Calcium Level 6.7 mg/dL (8.5-10.1) 6.8 mg/dL (8.5-10.1) Total Bilirubin 1.0 mg/dL (0.2-1.0) Aspartate Amino Transf (AST/SGOT) 57 U/L (15-37) Alanine Aminotransferase (ALT/SGPT) 46 U/L (16-63) Alkaline Phosphatase 451 U/L (46-116) Troponin I Quantitative 2.220 ng/mL (0.000-0.055) Total Protein 4.8 g/dL (6.4-8.2) Albumin 0.8 g/dL (3.4-5.0) Albumin/Globulin Ratio 0.2 (1.0-1.7) Glucose (Fingerstick) 101 mg/dL (70-99) Test 11/15/19 08:55 O2 Saturation 98 % (92-99) Arterial Blood pH 7.43 (7.35-7.45) Arterial Blood pH (Temp corrected) 7.41 Arterial Blood pCO2 at Patient Temp 23 mmHg (35-46) Arterial Blood pCO2 (Temp correct) 25 mmHg Arterial Blood pO2 at Patient Temp 140 mmHg (75-108) Arterial Blood pO2 (Temp corrected) 149 mmHg Arterial Blood HCO3 15 mmol/L (21-28) Arterial Blood Base Excess -8 mmol/L (-3-3) FiO2 45% vent Laboratory Tests Test 11/14/19 13:55 11/14/19 17:53 11/14/19 23:15 11/15/19 06:15 White Blood Count 37.1 x10^3/uL (4.0-11.0) 48.7 x10^3/uL (4.0-11.0) 62.1 x10^3/uL (4.0-11.0) Red Blood Count 2.41 x10^6/uL (4.30-5.70) 3.52 x10^6/uL (4.30-5.70) 3.25 x10^6/uL (4.30-5.70) Hemoglobin 6.4 g/dL (13.0-17.5) 9.5 g/dL (13.0-17.5) 8.9 g/dL (13.0-17.5) Hematocrit 20.4 % (39.0-53.0) 29.6 % (39.0-53.0) 27.8 % (39.0-53.0) Mean Corpuscular Volume 85 fL (79-100) 84 fL (79-100) 86 fL (79-100) Mean Corpuscular Hemoglobin 26 pg (25-35) 27 pg (25-35) 27 pg (25-35) Mean Corpuscular Hemoglobin Concent 31 g/dL (31-37) 32 g/dL (31-37) 32 g/dL (31-37) Red Cell Distribution Width 20.5 % (11.5-14.5) 19.0 % (11.5-14.5) 19.3 % (11.5-14.5) Platelet Count 463 x10^3/uL (140-400) 408 x10^3/uL (140-400) 279 x10^3/uL (140-400) Neutrophils (%) (Auto) 96 % (31-73) 97 % (31-73) Lymphocytes (%) (Auto) 1 % (24-48) 1 % (24-48) Monocytes (%) (Auto) 3 % (0-9) 2 % (0-9) Eosinophils (%) (Auto) 0 % (0-3) 0 % (0-3) Basophils (%) (Auto) 0 % (0-3) 0 % (0-3) Neutrophils # (Auto) 35.4 x10^3/uL (1.8-7.7) 60.3 x10^3/uL (1.8-7.7) Lymphocytes # (Auto) 0.4 x10^3/uL (1.0-4.8) 0.5 x10^3/uL (1.0-4.8) Monocytes # (Auto) 1.1 x10^3/uL (0.0-1.1) 1.3 x10^3/uL (0.0-1.1) Eosinophils # (Auto) 0.0 x10^3/uL (0.0-0.7) 0.0 x10^3/uL (0.0-0.7) Basophils # (Auto) 0.1 x10^3/uL (0.0-0.2) 0.1 x10^3/uL (0.0-0.2) Sodium Level 134 mmol/L (136-145) 133 mmol/L (136-145) Potassium Level 3.7 mmol/L (3.5-5.1) 4.3 mmol/L (3.5-5.1) Chloride Level 103 mmol/L (98-107) 102 mmol/L (98-107) Carbon Dioxide Level 25 mmol/L (21-32) 21 mmol/L (21-32) Anion Gap 6 (6-14) 10 (6-14) Blood Urea Nitrogen 14 mg/dL (8-26) 16 mg/dL (8-26) Creatinine 1.1 mg/dL (0.7-1.3) 1.5 mg/dL (0.7-1.3) Estimated GFR (Cockcroft-Gault) 86.1 60.2 BUN/Creatinine Ratio 13 (6-20) Glucose Level 123 mg/dL (70-99) 80 mg/dL (70-99) Lactic Acid Level 3.9 mmol/L (0.4-2.0) Calcium Level 6.7 mg/dL (8.5-10.1) 6.8 mg/dL (8.5-10.1) Total Bilirubin 1.0 mg/dL (0.2-1.0) Aspartate Amino Transf (AST/SGOT) 57 U/L (15-37) Alanine Aminotransferase (ALT/SGPT) 46 U/L (16-63) Alkaline Phosphatase 451 U/L (46-116) Troponin I Quantitative 2.220 ng/mL (0.000-0.055) Total Protein 4.8 g/dL (6.4-8.2) Albumin 0.8 g/dL (3.4-5.0) Albumin/Globulin Ratio 0.2 (1.0-1.7) Glucose (Fingerstick) 101 mg/dL (70-99) Test 11/15/19 08:55 O2 Saturation 98 % (92-99) Arterial Blood pH 7.43 (7.35-7.45) Arterial Blood pH (Temp corrected) 7.41 Arterial Blood pCO2 at Patient Temp 23 mmHg (35-46) Arterial Blood pCO2 (Temp correct) 25 mmHg Arterial Blood pO2 at Patient Temp 140 mmHg (75-108) Arterial Blood pO2 (Temp corrected) 149 mmHg Arterial Blood HCO3 15 mmol/L (21-28) Arterial Blood Base Excess -8 mmol/L (-3-3) FiO2 45% vent Medications Active Scripts Medications Dose Route/Sig Max Daily Dose Days Date Category Remeron (Mirtazapine) 15 Mg Tablet 1 Tab PO QHS 11/01/19 Reported Oxycodone Hcl Immed.release (Oxycodone Hcl) 15 Mg Tablet 15 Mg PO PRN Q6HRS PRN 5 10/31/19 Rx Buspirone Hcl 10 Mg Tablet 1 Tab PO BIDACBL 10/21/19 Reported Alprazolam 0.5 Mg Tablet 1 Tab PO HS 10/16/19 Reported Acetaminophen 500 Mg Tablet 1 Tab PO PRN Q6HRS PRN 15 10/16/19 Reported Ferrous Sulfate 325 Mg Tablet 65 Mg PO BID 10/16/19 Reported Pantoprazole Sodium (Pantoprazole Sodium) 40 Mg Tablet.dr 40 Mg PO DAILYAC 08/15/19 Reported Trazodone Hcl 50 Mg Tablet 1 Tab PO QHS 08/15/19 Reported Gabapentin (Gabapentin) 100 Mg Capsule 100 Mg PO TID 08/15/19 Reported Impression . IMPRESSION: 1.Acute Hypoxic respiratory Failure 2/2 cardiac arrest-- now requiring mechanical ventilation 2.S/P Cardiac arrest unknown etiology--r/o Cardiac vs [employer] cause for respiratory failure VS. bowel perforation 2/2 c.diff/ ? Narcotics contribution 3.Lower extremity edema secondary to lower extremity deep venous thrombosis with no evidence of pulmonary embolism. Risk factor for deep venous thrombosis is immobilization. 4. The patient with gallstone pancreatitis in May. He is status post exploratory laparotomy with pancreatic necrosectomy, history of gastrostomy tube placement. 5. History of respiratory failure, status post tracheostomy and subsequent decannulation. 6. History of hepatitis B. 7. History of renal failure, on hemodialysis in the past and subsequently renal function with return back to normal. 8. Clostridium difficile colitis. 9. Right upper quadrant pain related in a patient with history of gallstone pancreatitis. GI and Surgery following. 10. leukocytosis 11. CT with LLL mass like density related to fluid collection/ pseudo tumor Plan . RECOMMENDATIONS: continue current vent support monitor ABG and CXR make changes as needed start heparin gtt and D/C eliquis will obtain CT head/ CT abd/plvs to R/o [employer] cause fro respiratory failure VS. bowel perforation 05/18 c.diff obtain ECHO and consult to cardiology follow recs ABX per ID follow surgery recs-- S/P J-tube placement with IR on 11/12 Monitor HGB, transfuse as needed for HGb less than 7 Vasopressors as needed to keep MAP greater than 60 DVT/GI PPX Discussed with RN and RT and Family at bedside Total critical care time 40 minutes coordinating care and reviewing diagnostics Addend. Patient with GI bleed . Hb 6.4. DC heparin. d/w about the need for IVC filter. She agrees. d/w IR CHRIS TINOCO MD Nov 15, 2019 10:05
[2019-11-15 10:14] LABS: % BANDS 54 % (0-9); % METAS 4 % (0-0); % MONOS 2 % (0-10); % SEGS 40 % (35-66); ANISOCYTOSIS SLIGHT; NUCLEATED RBC 1; PLT ESTIMATE ADEQUATE (ADEQUATE)
[2019-11-15 10:15] LABS: TOXIC GRANULATION PRESENT
[2019-11-15] MEDS ORDERED: SODIUM BICARB ADULT 8.4% 50 MEQ/50 ML DISP.SYRIN. IV ONE (10:15)
[2019-11-15] MEDS: NOREPINEPHRINE VIAL 8 MG in IV DEXTROSE 5% 250 ML IV PRN ×2 (10:31→17:48)
--- NOTE | 2019-11-15 10:49 | PDOC ---
[facility] PROGRESS NOTE Chief Complaint Chief Complaint Acute Hypoxic respiratory Failure 2/2 cardiac arrest-- now requiring mechanical ventilation S/P Cardiac arrest unknown etiology, possible seizure Acute GI bleed, unknown source suspect C. difficile colitis possible perforation Bilateral DVT Neutropenia and bandemia, recent C. diff infection Toxic encephalopathy secondary to medication, currently resolved Diarrhea. Recurrent C. diff? C. diff Diarrhea on last hospital stay, completed a 10 day course of antibiotics. H/o recent Severe pancreatitis s/p ex-lap with pancreatic necrosectomy, cholecystostomy tube placement, gastrostomy tube placement, tracheostomy placement, 5 drains, 1.5L ascites drained - likely gallstone Status post tracheostomy - reversed, recovered Severe protein calorie malnutrition - started G-tube feeds Physical deconditioning - PT OT followed History of Hepatitis B J tube replaced by IR during last hospitalization but tolerating TFs at night well. Hold heparin drip due to GI bleed Pending cardiology, pulmonary, ID, neuro evaluation. Change Keppra to 1000 mg IV twice daily and Depacon 500 mg every 8 per ID. Okay with Versed drip Appreciate surgery recommendations, pending review of CT scan medical versus surgical management Hold DVT prophylaxis Protonix GI prophylaxis Patient is intubated and sedated Full code Discussed with RN and LETICIA Dispo pending surgery evaluation Surrogate decision maker is Deacon Mata phone: [phone] Total critical care time spent is 40 minutes History of Present Illness History of Present Illness History of Present Illness History of Present Illness 11/15/2019 No acute events overnight. Patient seen and examined at bedside. Patient did have large volume lower GI bleed with about 300 cc. Status post 2 units PRBCs. Patient's chart, labs, images were reviewed and discussed with RN 11/14/2019 Patient seen and examined bedside. Patient is sedated and intubated. Status post cardiac arrest with 3 rounds of CPR. Patient's chart, labs, images were reviewed and discussed with RN 11/13/19 Patient seen and examined Chart reviewed Discussed with RN Complaining of pain Discussed with via phone call 11/12/2019 Patient seen and examined Ostomy in RUQ and PEG tube in LUQ In bed, in NAD, eating breakfast PO Complaining of abdominal pain and insomnia Chart reviewed Discussed with RN Discussed with Limited H&P since patient is not a very good historian. Patient is a 49-year-old gentleman with past medical history of GERD pancreatitis history of DVT who comes to the emergency department complaining of bilateral leg swelling. At the time of my visit the patient is lying in bed in no apparent distress, he seems to be had of hearing, he is not offering many details about the story and we were asked to admit due to results of Doppler ultrasound revealing bilateral DVTs. Apparently the patient had been on Coumadin before it is unclear at this point if the patient has been taking Coumadin prior to this visit to the emergency department. Patient denies any headaches no blurred vision no strokelike symptoms no chest pain palpitations no shortness of breath has been reported. Patient denies abdominal pain no nausea vomiting or diarrhea. The patient certainly complains of discomfort over his bilateral extremities due to the edema. No other complaints were voiced, plan of care has been explained detail to the patient. Later in the day visited with nursing staff letting her concerned that patient may be having excessive sedation from his home medications that include trazodone and Remeron. Will place this on hold I have discussed this with nursing staff 11/08: Patient with recent admission to the hospital for C. difficile and still having diarrhea he had a significant bandemia which could be a consequence of ongoing C. difficile infection. Today feels much better and seems much more awake compared to yesterday after washout of his medications as most likely has kept him quite sedated at home. I have encourage more protein intake plan of care explained detail to the patient and his and all of their concerns were addressed to the best of my ability Vitals/I&O Vitals/I&O: Vital Signs Date Time Temp Pulse Resp B/P (MAP) Pulse Ox O2 Delivery O2 Flow Rate FiO2 11/15/19 10:32 100 11/15/19 09:06 Ventilator 11/15/19 06:00 136 26 81/68 (72) 11/15/19 04:00 101.8 101.8 I & O 11/14/19 11/14/19 11/15/19 15:00 23:00 07:00 Intake Total 2750 ml 1049 ml 419.3 ml Output Total 255 ml 465 ml 185 ml Balance 2495 ml 584 ml 234.3 ml Physical Exam Physical Exam: GENERAL: Thin, cachectic male Intubated HEENT: Norm conj. ETT NECK: Supple, no lymphadenopathy. LUNGS: Decreased breath sounds at the bases, increased Resp rate HEART: S1, S2. tachy ABDOMEN: Distended, soft, nontender, fistula in place - bloody drainage, GJ tube in place. - [place] with 3 plus edema EXTREMITIES: Edema, no cyanosis.RLE IO - old site clean DERMATOLOGIC: Warm, dry. 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 NEUROLOGIC: unable to assess PSYCHIATRIC: Unable to assess DERMATOLOGIC: No generalized rash RIJ - clean. General: Other (intubated with vent) Heart: Regular rate (sinus tach) Lungs: Other (decreased BLL) Abdomen: Soft, Other (drainage from cholecystostomy site, NTTP, protruberent, but stable) Extremities: No cyanosis Skin: No rashes, No significant lesion Labs Labs: Laboratory Tests Test 11/14/19 13:55 11/14/19 17:53 11/14/19 23:15 11/15/19 06:15 White Blood Count 37.1 x10^3/uL (4.0-11.0) 48.7 x10^3/uL (4.0-11.0) 62.1 x10^3/uL (4.0-11.0) Red Blood Count 2.41 x10^6/uL (4.30-5.70) 3.52 x10^6/uL (4.30-5.70) 3.25 x10^6/uL (4.30-5.70) Hemoglobin 6.4 g/dL (13.0-17.5) 9.5 g/dL (13.0-17.5) 8.9 g/dL (13.0-17.5) Hematocrit 20.4 % (39.0-53.0) 29.6 % (39.0-53.0) 27.8 % (39.0-53.0) Mean Corpuscular Volume 85 fL (79-100) 84 fL (79-100) 86 fL (79-100) Mean Corpuscular Hemoglobin 26 pg (25-35) 27 pg (25-35) 27 pg (25-35) Mean Corpuscular Hemoglobin Concent 31 g/dL (31-37) 32 g/dL (31-37) 32 g/dL (31-37) Red Cell Distribution Width 20.5 % (11.5-14.5) 19.0 % (11.5-14.5) 19.3 % (11.5-14.5) Platelet Count 463 x10^3/uL (140-400) 408 x10^3/uL (140-400) 279 x10^3/uL (140-400) Neutrophils (%) (Auto) 96 % (31-73) 97 % (31-73) Lymphocytes (%) (Auto) 1 % (24-48) 1 % (24-48) Monocytes (%) (Auto) 3 % (0-9) 2 % (0-9) Eosinophils (%) (Auto) 0 % (0-3) 0 % (0-3) Basophils (%) (Auto) 0 % (0-3) 0 % (0-3) Neutrophils # (Auto) 35.4 x10^3/uL (1.8-7.7) 60.3 x10^3/uL (1.8-7.7) Lymphocytes # (Auto) 0.4 x10^3/uL (1.0-4.8) 0.5 x10^3/uL (1.0-4.8) Monocytes # (Auto) 1.1 x10^3/uL (0.0-1.1) 1.3 x10^3/uL (0.0-1.1) Eosinophils # (Auto) 0.0 x10^3/uL (0.0-0.7) 0.0 x10^3/uL (0.0-0.7) Basophils # (Auto) 0.1 x10^3/uL (0.0-0.2) 0.1 x10^3/uL (0.0-0.2) Sodium Level 134 mmol/L (136-145) 133 mmol/L (136-145) Potassium Level 3.7 mmol/L (3.5-5.1) 4.3 mmol/L (3.5-5.1) Chloride Level 103 mmol/L (98-107) 102 mmol/L (98-107) Carbon Dioxide Level 25 mmol/L (21-32) 21 mmol/L (21-32) Anion Gap 6 (6-14) 10 (6-14) Blood Urea Nitrogen 14 mg/dL (8-26) 16 mg/dL (8-26) Creatinine 1.1 mg/dL (0.7-1.3) 1.5 mg/dL (0.7-1.3) Estimated GFR (Cockcroft-Gault) 86.1 60.2 BUN/Creatinine Ratio 13 (6-20) Glucose Level 123 mg/dL (70-99) 80 mg/dL (70-99) Lactic Acid Level 3.9 mmol/L (0.4-2.0) Calcium Level 6.7 mg/dL (8.5-10.1) 6.8 mg/dL (8.5-10.1) Total Bilirubin 1.0 mg/dL (0.2-1.0) Aspartate Amino Transf (AST/SGOT) 57 U/L (15-37) Alanine Aminotransferase (ALT/SGPT) 46 U/L (16-63) Alkaline Phosphatase 451 U/L (46-116) Troponin I Quantitative 2.220 ng/mL (0.000-0.055) Total Protein 4.8 g/dL (6.4-8.2) Albumin 0.8 g/dL (3.4-5.0) Albumin/Globulin Ratio 0.2 (1.0-1.7) Glucose (Fingerstick) 101 mg/dL (70-99) Segmented Neutrophils % 40 % (35-66) Band Neutrophils % 54 % (0-9) Monocytes % 2 % (0-10) Metamyelocytes % 4 % (0-0) Nucleated Red Blood Cells 1 Toxic Granulation Present Dohle Bodies Present Platelet Estimate Adequate (ADEQUATE) Anisocytosis Slight Test 11/15/19 08:55 O2 Saturation 98 % (92-99) Arterial Blood pH 7.43 (7.35-7.45) Arterial Blood pH (Temp corrected) 7.41 Arterial Blood pCO2 at Patient Temp 23 mmHg (35-46) Arterial Blood pCO2 (Temp correct) 25 mmHg Arterial Blood pO2 at Patient Temp 140 mmHg (75-108) Arterial Blood pO2 (Temp corrected) 149 mmHg Arterial Blood HCO3 15 mmol/L (21-28) Arterial Blood Base Excess -8 mmol/L (-3-3) FiO2 45% vent Comment Review of Relevant I have reviewed the following items alexandra (where applicable) has been applied. Medications: Current Medications Medications (Trade) Dose Ordered Sig/Jesse Route PRN Reason Start Time Stop Time Status Last Admin Dose Admin Meropenem 500 mg/ Sodium Chloride 50 ml @ 100 mls/hr Q6HRS IV 11/14/19 12:00 11/15/19 06:10 DC 11/15/19 05:29 Metronidazole 100 ml @ 100 mls/hr Q8HRS IV 11/14/19 12:00 11/15/19 05:29 Sodium Chloride 1,000 ml @ 500 mls/hr Q2H IV 11/14/19 11:30 11/14/19 15:29 DC 11/14/19 13:31 Lidocaine HCl (Buffered Lidocaine 1%) 6 ml 1X ONCE INJ 11/14/19 16:15 11/14/19 16:16 DC 11/14/19 16:51 Iohexol (Omnipaque 240 Mg/ml) 50 ml 1X ONCE IJ 11/14/19 16:15 11/14/19 16:16 DC 11/14/19 16:52 Levetiracetam 1000 mg/Dextrose 110 ml @ 440 mls/hr 1X ONCE IV 11/14/19 16:15 11/14/19 16:29 DC 11/14/19 17:09 Levetiracetam 500 mg/Dextrose 105 ml @ 420 mls/hr Q12HR IV 11/14/19 21:00 11/14/19 21:56 DC 11/14/19 20:55 Vancomycin HCl 1.25 gm/Sodium Chloride 250 ml @ 167 mls/hr Q12H IV 11/15/19 00:01 11/15/19 00:18 Heparin Sodium/ Sodium Chloride (HEPARIN for ARTERIAL LINE FLUSH) 1,000 unit 1X ONCE IV 11/14/19 17:00 11/14/19 17:01 DC 11/14/19 16:54 Levetiracetam 500 mg/Dextrose 105 ml @ 420 mls/hr 1X ONCE IV 11/14/19 22:30 11/14/19 22:44 DC 11/14/19 22:02 Levetiracetam 1000 mg/Dextrose 110 ml @ 440 mls/hr Q12HR IV 11/15/19 09:00 11/15/19 08:48 Valproic Acid 1000 mg/Dextrose 60 ml @ 55 mls/hr 1X ONCE IV 11/14/19 23:00 8/1/20 00:05 DC 11/14/19 23:01 Valproic Acid 500 mg/Dextrose 55 ml @ 55 mls/hr Q8HRS IV 11/15/19 06:00 11/15/19 05:39 Acetaminophen (Tylenol) 650 mg PRN Q6HRS PRN PEG MILD PAIN / TEMP > 100.3'F 11/15/19 04:15 11/15/19 04:33 Cefepime HCl (Maxipime) 1 gm Q8HRS IVP 11/15/19 07:00 11/15/19 08:58 Sodium Bicarbonate (Sodium Bicarb Adult 8.4% Syr) 50 meq 1X ONCE IV 11/15/19 10:15 11/15/19 10:16 DC 11/15/19 10:16 Justicifation of Admission Dx: Justifications for Admission: Justification of Admission Dx: Yes Comminuty Aquired Pneumonia: Med-High Risk Pt Sepsis: Infection FLORENTINO HUTTON MD Nov 15, 2019 10:49
--- NOTE | 2019-11-15 11:29 | PDOC ---
CARDIOLOGY PROGRESS NOTE SUBJECTIVE: No new events. Probable status epilepticus OBJECTIVE: Vital Signs/I&O: Vital Signs Date Time Temp Pulse Resp B/P (MAP) Pulse Ox O2 Delivery O2 Flow Rate FiO2 11/15/19 10:32 100 11/15/19 09:06 Ventilator 11/15/19 06:00 136 26 81/68 (72) 11/15/19 04:00 101.8 101.8 I & O 11/14/19 11/14/19 11/15/19 15:00 23:00 07:00 Intake Total 2750 ml 1049 ml 419.3 ml Output Total 255 ml 465 ml 185 ml Balance 2495 ml 584 ml 234.3 ml CURRENT MEDICATIONS: Current Medications Medications (Trade) Dose Ordered Sig/Jesse Route PRN Reason Start Time Stop Time Status Last Admin Dose Admin Meropenem 500 mg/ Sodium Chloride 50 ml @ 100 mls/hr Q6HRS IV 11/14/19 12:00 11/15/19 06:10 DC 11/15/19 05:29 Metronidazole 100 ml @ 100 mls/hr Q8HRS IV 11/14/19 12:00 11/15/19 05:29 Sodium Chloride 1,000 ml @ 500 mls/hr Q2H IV 11/14/19 11:30 11/14/19 15:29 DC 11/14/19 13:31 Lidocaine HCl (Buffered Lidocaine 1%) 6 ml 1X ONCE INJ 11/14/19 16:15 11/14/19 16:16 DC 11/14/19 16:51 Iohexol (Omnipaque 240 Mg/ml) 50 ml 1X ONCE IJ 11/14/19 16:15 11/14/19 16:16 DC 11/14/19 16:52 Levetiracetam 1000 mg/Dextrose 110 ml @ 440 mls/hr 1X ONCE IV 11/14/19 16:15 11/14/19 16:29 DC 11/14/19 17:09 Levetiracetam 500 mg/Dextrose 105 ml @ 420 mls/hr Q12HR IV 11/14/19 21:00 11/14/19 21:56 DC 11/14/19 20:55 Vancomycin HCl 1.25 gm/Sodium Chloride 250 ml @ 167 mls/hr Q12H IV 11/15/19 00:01 11/15/19 00:18 Heparin Sodium/ Sodium Chloride (HEPARIN for ARTERIAL LINE FLUSH) 1,000 unit 1X ONCE IV 11/14/19 17:00 11/14/19 17:01 DC 11/14/19 16:54 Levetiracetam 500 mg/Dextrose 105 ml @ 420 mls/hr 1X ONCE IV 11/14/19 22:30 11/14/19 22:44 DC 11/14/19 22:02 Levetiracetam 1000 mg/Dextrose 110 ml @ 440 mls/hr Q12HR IV 11/15/19 09:00 11/15/19 08:48 Valproic Acid 1000 mg/Dextrose 60 ml @ 55 mls/hr 1X ONCE IV 11/14/19 23:00 11/15/19 00:05 DC 11/14/19 23:01 Valproic Acid 500 mg/Dextrose 55 ml @ 55 mls/hr Q8HRS IV 11/15/19 06:00 11/15/19 05:39 Acetaminophen (Tylenol) 650 mg PRN Q6HRS PRN PEG MILD PAIN / TEMP > 100.3'F 11/15/19 04:15 11/15/19 04:33 Cefepime HCl (Maxipime) 1 gm Q8HRS IVP 11/15/19 07:00 11/15/19 08:58 Sodium Bicarbonate (Sodium Bicarb Adult 8.4% Syr) 50 meq 1X ONCE IV 11/15/19 10:15 11/15/19 10:16 DC 11/15/19 10:16 DIAGNOSTIC TESTING: Labs reviewed. S/p IVC filters Labs: Laboratory Tests 11/15/19 06:15 Laboratory Tests Test 11/14/19 13:55 11/14/19 17:53 11/14/19 23:15 11/15/19 06:15 White Blood Count 37.1 x10^3/uL (4.0-11.0) H 48.7 x10^3/uL (4.0-11.0) *H 62.1 x10^3/uL (4.0-11.0) *H Red Blood Count 2.41 x10^6/uL (4.30-5.70) L 3.52 x10^6/uL (4.30-5.70) L 3.25 x10^6/uL (4.30-5.70) L Hemoglobin 6.4 g/dL (13.0-17.5) *L 9.5 g/dL (13.0-17.5) #L 8.9 g/dL (13.0-17.5) L Hematocrit 20.4 % (39.0-53.0) *L 29.6 % (39.0-53.0) L 27.8 % (39.0-53.0) L Mean Corpuscular Volume 85 fL (79-100) 84 fL (79-100) 86 fL (79-100) Mean Corpuscular Hemoglobin 26 pg (25-35) 27 pg (25-35) 27 pg (25-35) Mean Corpuscular Hemoglobin Concent 31 g/dL (31-37) 32 g/dL (31-37) 32 g/dL (31-37) Red Cell Distribution Width 20.5 % (11.5-14.5) H 19.0 % (11.5-14.5) H 19.3 % (11.5-14.5) H Platelet Count 463 x10^3/uL (140-400) H 408 x10^3/uL (140-400) H 279 x10^3/uL (140-400) Neutrophils (%) (Auto) 96 % (31-73) H 97 % (31-73) H Lymphocytes (%) (Auto) 1 % (24-48) L 1 % (24-48) L Monocytes (%) (Auto) 3 % (0-9) 2 % (0-9) Eosinophils (%) (Auto) 0 % (0-3) 0 % (0-3) Basophils (%) (Auto) 0 % (0-3) 0 % (0-3) Neutrophils # (Auto) 35.4 x10^3/uL (1.8-7.7) H 60.3 x10^3/uL (1.8-7.7) H Lymphocytes # (Auto) 0.4 x10^3/uL (1.0-4.8) L 0.5 x10^3/uL (1.0-4.8) L Monocytes # (Auto) 1.1 x10^3/uL (0.0-1.1) 1.3 x10^3/uL (0.0-1.1) H Eosinophils # (Auto) 0.0 x10^3/uL (0.0-0.7) 0.0 x10^3/uL (0.0-0.7) Basophils # (Auto) 0.1 x10^3/uL (0.0-0.2) 0.1 x10^3/uL (0.0-0.2) Sodium Level 134 mmol/L (136-145) L 133 mmol/L (136-145) L Potassium Level 3.7 mmol/L (3.5-5.1) 4.3 mmol/L (3.5-5.1) Chloride Level 103 mmol/L (98-107) 102 mmol/L (98-107) Carbon Dioxide Level 25 mmol/L (21-32) 21 mmol/L (21-32) Anion Gap 6 (6-14) 10 (6-14) Blood Urea Nitrogen 14 mg/dL (8-26) 16 mg/dL (8-26) Creatinine 1.1 mg/dL (0.7-1.3) 1.5 mg/dL (0.7-1.3) H Estimated GFR (Cockcroft-Gault) 86.1 60.2 BUN/Creatinine Ratio 13 (6-20) Glucose Level 123 mg/dL (70-99) H 80 mg/dL (70-99) Lactic Acid Level 3.9 mmol/L (0.4-2.0) H Calcium Level 6.7 mg/dL (8.5-10.1) L 6.8 mg/dL (8.5-10.1) L Total Bilirubin 1.0 mg/dL (0.2-1.0) Aspartate Amino Transf (AST/SGOT) 57 U/L (15-37) H Alkaline Phosphatase 451 U/L (46-116) H Total Protein 4.8 g/dL (6.4-8.2) L Albumin 0.8 g/dL (3.4-5.0) L Albumin/Globulin Ratio 0.2 (1.0-1.7) L Glucose (Fingerstick) 101 mg/dL (70-99) H Segmented Neutrophils % 40 % (35-66) Band Neutrophils % 54 % (0-9) H Monocytes % 2 % (0-10) Metamyelocytes % 4 % (0-0) H Nucleated Red Blood Cells 1 Toxic Granulation Present Dohle Bodies Present Platelet Estimate Adequate (ADEQUATE) Anisocytosis Slight Test 11/15/19 08:55 O2 Saturation 98 % (92-99) Arterial Blood pH 7.43 (7.35-7.45) Arterial Blood pH (Temp corrected) 7.41 Arterial Blood pCO2 at Patient Temp 23 mmHg (35-46) L Arterial Blood pCO2 (Temp correct) 25 mmHg Arterial Blood pO2 at Patient Temp 140 mmHg (75-108) H Arterial Blood pO2 (Temp corrected) 149 mmHg Arterial Blood HCO3 15 mmol/L (21-28) L Arterial Blood Base Excess -8 mmol/L (-3-3) L FiO2 45% vent ASSESSMENT: 1. PEA arrest due to DVT/possible P.E, sepsis PLAN: 1. Supportive care from a CV standpoint. Normal LV function noted on echo. Justicifation of Admission Dx: Justifications for Admission: Justification of Admission Dx: Yes Comminuty Aquired Pneumonia: Med-High Risk Pt Sepsis: Infection GHASSAN STEVENS MD Nov 15, 2019 11:29
--- NOTE | 2019-11-15 12:13 | PDOC ---
PULMONARY PROGRESS NOTES Subjective on vent, sedated on fentanyl versed, small ett secretion, on levo febrile, off hep s/p ivc filter 11/13 S/P cardiac arrest with 3 rounds of CPR and EPI/ bicarb 11/13 Vitals Vital Signs Date Time Temp Pulse Resp B/P (MAP) Pulse Ox O2 Delivery O2 Flow Rate FiO2 11/15/19 11:25 100 Ventilator 11/15/19 06:00 136 26 81/68 (72) 11/15/19 04:00 101.8 101.8 Comments unable to obtain intubated HEENT: Other (nc at perrl nose clear orally intubated neck no lad no thyromegaly) Lungs: Other (decreased BLL) Cardiovascular: S1, S2 Abdomen: Other (distended deminished bs) Extremities: Other (+ edema) Skin: Warm Labs Laboratory Tests Test 11/13/19 16:59 11/13/19 21:57 11/14/19 03:30 11/14/19 07:27 Glucose (Fingerstick) 96 mg/dL (70-99) 75 mg/dL (70-99) 55 mg/dL (70-99) White Blood Count 18.1 x10^3/uL (4.0-11.0) Red Blood Count 2.71 x10^6/uL (4.30-5.70) Hemoglobin 7.3 g/dL (13.0-17.5) Hematocrit 22.9 % (39.0-53.0) Mean Corpuscular Volume 85 fL (79-100) Mean Corpuscular Hemoglobin 27 pg (25-35) Mean Corpuscular Hemoglobin Concent 32 g/dL (31-37) Red Cell Distribution Width 20.9 % (11.5-14.5) Platelet Count 417 x10^3/uL (140-400) Neutrophils (%) (Auto) 91 % (31-73) Lymphocytes (%) (Auto) 4 % (24-48) Monocytes (%) (Auto) 6 % (0-9) Eosinophils (%) (Auto) 0 % (0-3) Basophils (%) (Auto) 0 % (0-3) Neutrophils # (Auto) 16.4 x10^3/uL (1.8-7.7) Lymphocytes # (Auto) 0.7 x10^3/uL (1.0-4.8) Monocytes # (Auto) 1.0 x10^3/uL (0.0-1.1) Eosinophils # (Auto) 0.0 x10^3/uL (0.0-0.7) Basophils # (Auto) 0.0 x10^3/uL (0.0-0.2) Sodium Level 131 mmol/L (136-145) Potassium Level 4.0 mmol/L (3.5-5.1) Chloride Level 100 mmol/L (98-107) Carbon Dioxide Level 28 mmol/L (21-32) Anion Gap 3 (6-14) Blood Urea Nitrogen 13 mg/dL (8-26) Creatinine 1.0 mg/dL (0.7-1.3) Estimated GFR (Cockcroft-Gault) 96.1 Glucose Level 85 mg/dL (70-99) Calcium Level 7.2 mg/dL (8.5-10.1) Test 11/14/19 09:01 11/14/19 09:25 11/14/19 13:55 11/14/19 17:53 O2 Saturation 92 % (92-99) Arterial Blood pH 7.43 (7.35-7.45) Arterial Blood pCO2 at Patient Temp 32 mmHg (35-46) Arterial Blood pO2 at Patient Temp 75 mmHg (75-108) Arterial Blood HCO3 20 mmol/L (21-28) Arterial Blood Base Excess -4 mmol/L (-3-3) FiO2 40 White Blood Count 30.5 x10^3/uL (4.0-11.0) 37.1 x10^3/uL (4.0-11.0) Red Blood Count 2.77 x10^6/uL (4.30-5.70) 2.41 x10^6/uL (4.30-5.70) Hemoglobin 7.5 g/dL (13.0-17.5) 6.4 g/dL (13.0-17.5) Hematocrit 24.0 % (39.0-53.0) 20.4 % (39.0-53.0) Mean Corpuscular Volume 87 fL (79-100) 85 fL (79-100) Mean Corpuscular Hemoglobin 27 pg (25-35) 26 pg (25-35) Mean Corpuscular Hemoglobin Concent 31 g/dL (31-37) 31 g/dL (31-37) Red Cell Distribution Width 20.4 % (11.5-14.5) 20.5 % (11.5-14.5) Platelet Count 444 x10^3/uL (140-400) 463 x10^3/uL (140-400) Neutrophils (%) (Auto) 97 % (31-73) 96 % (31-73) Lymphocytes (%) (Auto) 2 % (24-48) 1 % (24-48) Monocytes (%) (Auto) 1 % (0-9) 3 % (0-9) Eosinophils (%) (Auto) 0 % (0-3) 0 % (0-3) Basophils (%) (Auto) 0 % (0-3) 0 % (0-3) Neutrophils # (Auto) 29.6 x10^3/uL (1.8-7.7) 35.4 x10^3/uL (1.8-7.7) Lymphocytes # (Auto) 0.5 x10^3/uL (1.0-4.8) 0.4 x10^3/uL (1.0-4.8) Monocytes # (Auto) 0.4 x10^3/uL (0.0-1.1) 1.1 x10^3/uL (0.0-1.1) Eosinophils # (Auto) 0.0 x10^3/uL (0.0-0.7) 0.0 x10^3/uL (0.0-0.7) Basophils # (Auto) 0.0 x10^3/uL (0.0-0.2) 0.1 x10^3/uL (0.0-0.2) Segmented Neutrophils % 81 % (35-66) Band Neutrophils % 16 % (0-9) Lymphocytes % 2 % (24-48) Monocytes % 1 % (0-10) Nucleated Red Blood Cells 1 Toxic Granulation Mod Platelet Estimate Increased (ADEQUATE) Platelet Clumps, EDTA Present Large Platelets Occ Hypochromasia Mod Anisocytosis Slight Sodium Level 132 mmol/L (136-145) 134 mmol/L (136-145) Potassium Level 4.1 mmol/L (3.5-5.1) 3.7 mmol/L (3.5-5.1) Chloride Level 101 mmol/L (98-107) 103 mmol/L (98-107) Carbon Dioxide Level 22 mmol/L (21-32) 25 mmol/L (21-32) Anion Gap 9 (6-14) 6 (6-14) Blood Urea Nitrogen 14 mg/dL (8-26) 14 mg/dL (8-26) Creatinine 1.3 mg/dL (0.7-1.3) 1.1 mg/dL (0.7-1.3) Estimated GFR (Cockcroft-Gault) 71.0 86.1 Glucose Level 141 mg/dL (70-99) 123 mg/dL (70-99) Lactic Acid Level 7.0 mmol/L (0.4-2.0) 3.9 mmol/L (0.4-2.0) Calcium Level 7.1 mg/dL (8.5-10.1) 6.7 mg/dL (8.5-10.1) Magnesium Level 2.1 mg/dL (1.8-2.4) Troponin I Quantitative 0.553 ng/mL (0.000-0.055) 2.220 ng/mL (0.000-0.055) Procalcitonin 0.70 ng/mL (0.00-0.10) BUN/Creatinine Ratio 13 (6-20) Total Bilirubin 1.0 mg/dL (0.2-1.0) Aspartate Amino Transf (AST/SGOT) 57 U/L (15-37) Alanine Aminotransferase (ALT/SGPT) 46 U/L (16-63) Alkaline Phosphatase 451 U/L (46-116) Total Protein 4.8 g/dL (6.4-8.2) Albumin 0.8 g/dL (3.4-5.0) Albumin/Globulin Ratio 0.2 (1.0-1.7) Glucose (Fingerstick) 101 mg/dL (70-99) Test 11/14/19 23:15 11/15/19 06:15 11/15/19 08:55 White Blood Count 48.7 x10^3/uL (4.0-11.0) 62.1 x10^3/uL (4.0-11.0) Red Blood Count 3.52 x10^6/uL (4.30-5.70) 3.25 x10^6/uL (4.30-5.70) Hemoglobin 9.5 g/dL (13.0-17.5) 8.9 g/dL (13.0-17.5) Hematocrit 29.6 % (39.0-53.0) 27.8 % (39.0-53.0) Mean Corpuscular Volume 84 fL (79-100) 86 fL (79-100) Mean Corpuscular Hemoglobin 27 pg (25-35) 27 pg (25-35) Mean Corpuscular Hemoglobin Concent 32 g/dL (31-37) 32 g/dL (31-37) Red Cell Distribution Width 19.0 % (11.5-14.5) 19.3 % (11.5-14.5) Platelet Count 408 x10^3/uL (140-400) 279 x10^3/uL (140-400) Neutrophils (%) (Auto) 97 % (31-73) Lymphocytes (%) (Auto) 1 % (24-48) Monocytes (%) (Auto) 2 % (0-9) Eosinophils (%) (Auto) 0 % (0-3) Basophils (%) (Auto) 0 % (0-3) Neutrophils # (Auto) 60.3 x10^3/uL (1.8-7.7) Lymphocytes # (Auto) 0.5 x10^3/uL (1.0-4.8) Monocytes # (Auto) 1.3 x10^3/uL (0.0-1.1) Eosinophils # (Auto) 0.0 x10^3/uL (0.0-0.7) Basophils # (Auto) 0.1 x10^3/uL (0.0-0.2) Segmented Neutrophils % 40 % (35-66) Band Neutrophils % 54 % (0-9) Monocytes % 2 % (0-10) Metamyelocytes % 4 % (0-0) Nucleated Red Blood Cells 1 Toxic Granulation Present Dohle Bodies Present Platelet Estimate Adequate (ADEQUATE) Anisocytosis Slight Sodium Level 133 mmol/L (136-145) Potassium Level 4.3 mmol/L (3.5-5.1) Chloride Level 102 mmol/L (98-107) Carbon Dioxide Level 21 mmol/L (21-32) Anion Gap 10 (6-14) Blood Urea Nitrogen 16 mg/dL (8-26) Creatinine 1.5 mg/dL (0.7-1.3) Estimated GFR (Cockcroft-Gault) 60.2 Glucose Level 80 mg/dL (70-99) Calcium Level 6.8 mg/dL (8.5-10.1) O2 Saturation 98 % (92-99) Arterial Blood pH 7.43 (7.35-7.45) Arterial Blood pH (Temp corrected) 7.41 Arterial Blood pCO2 at Patient Temp 23 mmHg (35-46) Arterial Blood pCO2 (Temp correct) 25 mmHg Arterial Blood pO2 at Patient Temp 140 mmHg (75-108) Arterial Blood pO2 (Temp corrected) 149 mmHg Arterial Blood HCO3 15 mmol/L (21-28) Arterial Blood Base Excess -8 mmol/L (-3-3) FiO2 45% vent Laboratory Tests Test 11/14/19 13:55 11/14/19 17:53 11/14/19 23:15 11/15/19 06:15 White Blood Count 37.1 x10^3/uL (4.0-11.0) 48.7 x10^3/uL (4.0-11.0) 62.1 x10^3/uL (4.0-11.0) Red Blood Count 2.41 x10^6/uL (4.30-5.70) 3.52 x10^6/uL (4.30-5.70) 3.25 x10^6/uL (4.30-5.70) Hemoglobin 6.4 g/dL (13.0-17.5) 9.5 g/dL (13.0-17.5) 8.9 g/dL (13.0-17.5) Hematocrit 20.4 % (39.0-53.0) 29.6 % (39.0-53.0) 27.8 % (39.0-53.0) Mean Corpuscular Volume 85 fL (79-100) 84 fL (79-100) 86 fL (79-100) Mean Corpuscular Hemoglobin 26 pg (25-35) 27 pg (25-35) 27 pg (25-35) Mean Corpuscular Hemoglobin Concent 31 g/dL (31-37) 32 g/dL (31-37) 32 g/dL (31-37) Red Cell Distribution Width 20.5 % (11.5-14.5) 19.0 % (11.5-14.5) 19.3 % (11.5-14.5) Platelet Count 463 x10^3/uL (140-400) 408 x10^3/uL (140-400) 279 x10^3/uL (140-400) Neutrophils (%) (Auto) 96 % (31-73) 97 % (31-73) Lymphocytes (%) (Auto) 1 % (24-48) 1 % (24-48) Monocytes (%) (Auto) 3 % (0-9) 2 % (0-9) Eosinophils (%) (Auto) 0 % (0-3) 0 % (0-3) Basophils (%) (Auto) 0 % (0-3) 0 % (0-3) Neutrophils # (Auto) 35.4 x10^3/uL (1.8-7.7) 60.3 x10^3/uL (1.8-7.7) Lymphocytes # (Auto) 0.4 x10^3/uL (1.0-4.8) 0.5 x10^3/uL (1.0-4.8) Monocytes # (Auto) 1.1 x10^3/uL (0.0-1.1) 1.3 x10^3/uL (0.0-1.1) Eosinophils # (Auto) 0.0 x10^3/uL (0.0-0.7) 0.0 x10^3/uL (0.0-0.7) Basophils # (Auto) 0.1 x10^3/uL (0.0-0.2) 0.1 x10^3/uL (0.0-0.2) Sodium Level 134 mmol/L (136-145) 133 mmol/L (136-145) Potassium Level 3.7 mmol/L (3.5-5.1) 4.3 mmol/L (3.5-5.1) Chloride Level 103 mmol/L (98-107) 102 mmol/L (98-107) Carbon Dioxide Level 25 mmol/L (21-32) 21 mmol/L (21-32) Anion Gap 6 (6-14) 10 (6-14) Blood Urea Nitrogen 14 mg/dL (8-26) 16 mg/dL (8-26) Creatinine 1.1 mg/dL (0.7-1.3) 1.5 mg/dL (0.7-1.3) Estimated GFR (Cockcroft-Gault) 86.1 60.2 BUN/Creatinine Ratio 13 (6-20) Glucose Level 123 mg/dL (70-99) 80 mg/dL (70-99) Lactic Acid Level 3.9 mmol/L (0.4-2.0) Calcium Level 6.7 mg/dL (8.5-10.1) 6.8 mg/dL (8.5-10.1) Total Bilirubin 1.0 mg/dL (0.2-1.0) Aspartate Amino Transf (AST/SGOT) 57 U/L (15-37) Alanine Aminotransferase (ALT/SGPT) 46 U/L (16-63) Alkaline Phosphatase 451 U/L (46-116) Troponin I Quantitative 2.220 ng/mL (0.000-0.055) Total Protein 4.8 g/dL (6.4-8.2) Albumin 0.8 g/dL (3.4-5.0) Albumin/Globulin Ratio 0.2 (1.0-1.7) Glucose (Fingerstick) 101 mg/dL (70-99) Segmented Neutrophils % 40 % (35-66) Band Neutrophils % 54 % (0-9) Monocytes % 2 % (0-10) Metamyelocytes % 4 % (0-0) Nucleated Red Blood Cells 1 Toxic Granulation Present Dohle Bodies Present Platelet Estimate Adequate (ADEQUATE) Anisocytosis Slight Test 11/15/19 08:55 O2 Saturation 98 % (92-99) Arterial Blood pH 7.43 (7.35-7.45) Arterial Blood pH (Temp corrected) 7.41 Arterial Blood pCO2 at Patient Temp 23 mmHg (35-46) Arterial Blood pCO2 (Temp correct) 25 mmHg Arterial Blood pO2 at Patient Temp 140 mmHg (75-108) Arterial Blood pO2 (Temp corrected) 149 mmHg Arterial Blood HCO3 15 mmol/L (21-28) Arterial Blood Base Excess -8 mmol/L (-3-3) FiO2 45% vent Medications Active Scripts Medications Dose Route/Sig Max Daily Dose Days Date Category Remeron (Mirtazapine) 15 Mg Tablet 1 Tab PO QHS 11/01/19 Reported Oxycodone Hcl Immed.release (Oxycodone Hcl) 15 Mg Tablet 15 Mg PO PRN Q6HRS PRN 5 10/31/19 Rx Buspirone Hcl 10 Mg Tablet 1 Tab PO BIDACBL 10/21/19 Reported Alprazolam 0.5 Mg Tablet 1 Tab PO HS 10/16/19 Reported Acetaminophen 500 Mg Tablet 1 Tab PO PRN Q6HRS PRN 15 10/16/19 Reported Ferrous Sulfate 325 Mg Tablet 65 Mg PO BID 10/16/19 Reported Pantoprazole Sodium (Pantoprazole Sodium) 40 Mg Tablet.dr 40 Mg PO DAILYAC 08/15/19 Reported Trazodone Hcl 50 Mg Tablet 1 Tab PO QHS 08/15/19 Reported Gabapentin (Gabapentin) 100 Mg Capsule 100 Mg PO TID 08/15/[address] of abd and pelvis 1. Gas containing fluid collection replacing the pancreas, with an intact of gas extending to the skin surface in the right upper quadrant abdomen. Findings suspicious for an abscess either related to pancreatic necrosis or complication of pancreatectomy. Correlate clinically. 2. Moderate amount of ascites and mesenteric edema with abdominal distention and severe hepatic steatosis. Correlate clinically for any evidence of hypoperfusion injury or ischemia. 3. Foci of gas in the left upper quadrant abdomen are new in the presence of a percutaneous gastrostomy tube. Correlate for any history of recent instrumentation. A contained bowel perforation can yield this appearance. Impression . IMPRESSION: 1.Acute Hypoxic respiratory Failure 2/2 cardiac arrest-- now requiring mechanical ventilation 2.S/P Cardiac arrest unknown etiology--r/o Cardiac vs NEUROLOGY SPECIALIST cause for respiratory failure VS. bowel perforation 2/2 c.diff/ ? Narcotics contribution 3.Lower extremity edema secondary to lower extremity deep venous thrombosis with no evidence of pulmonary embolism. Risk factor for deep venous thrombosis is immobilization. 4. The patient with gallstone pancreatitis in May. He is status post exploratory laparotomy with pancreatic necrosectomy, history of gastrostomy tube placement. septic shock on pressors 5. History of respiratory failure, status post tracheostomy and subsequent decannulation. 6. History of hepatitis B. 7. History of renal failure, on hemodialysis in the past and subsequently renal function with return back to normal. 8. Clostridium difficile colitis. 9. Right upper quadrant pain related in a patient with history of gallstone pancreatitis. Pancreatic Bed Abscess, GI and Surgery following. 10. leukocytosis 11[address] CT with LLL mass like density related to fluid collection/ pseudo tumor Plan . RECOMMENDATIONS: continue current vent support, setting reviewed, monitor ABG and CXR make changes as needed to ir for drain for Pancreatic Bed Abscess this pm c.diff obtain ECHO and consult to cardiology follow recs ABX per ID follow surgery recs-- S/P J-tube placement with IR on 11/12 Monitor HGB, transfuse as needed for HGb less than 7 Vasopressors to keep MAP greater than 60 Patient with GI bleed . Hb 6.4. heparin dced. s/p IVC filter 11/13. GI PPX Discussed with RN and RT discussed w on the phone Total critical care time 30 minutes coordinating care and reviewing diagnostics no overlap critically ill CHRIS TINOCO MD Nov 15, 2019 12:13
[2019-11-15] MEDS: VANCOMYCIN PER PHARMACY MC PRN (12:35)
[2019-11-15] MEDS ORDERED: LIDOCAINE WITH 8.4% SOD BICARB 3 ML DISP.SYRIN. ONE (12:38)
--- NOTE | 2019-11-15 12:47 | PDOC ---
SURGICAL PROGRESS NOTE Subjective Pt intubated, sedated, increasing pressors needed, min UOP Vital Signs Vital Signs Date Time Temp Pulse Resp B/P (MAP) Pulse Ox O2 Delivery O2 Flow Rate FiO2 11/15/19 11:25 100 Ventilator 11/15/19 06:00 136 26 81/68 (72) 11/15/19 04:00 101.8 101.8 I&O Intake and Output 11/15/19 07:00 Intake Total 4218.3 ml Output Total 905 ml Balance 3313.3 ml Intake Oral 0 ml IV Total 4218.3 ml Output Urine Total 555 ml Gastric Drainage Total 350 ml General: moderate distress Abdomen: Soft, Other (drainage in RUQ) Labs Laboratory Tests Test 11/13/19 16:59 11/13/19 21:57 11/14/19 03:30 11/14/19 07:27 Glucose (Fingerstick) 96 mg/dL (70-99) 75 mg/dL (70-99) 55 mg/dL (70-99) White Blood Count 18.1 x10^3/uL (4.0-11.0) Red Blood Count 2.71 x10^6/uL (4.30-5.70) Hemoglobin 7.3 g/dL (13.0-17.5) Hematocrit 22.9 % (39.0-53.0) Mean Corpuscular Volume 85 fL (79-100) Mean Corpuscular Hemoglobin 27 pg (25-35) Mean Corpuscular Hemoglobin Concent 32 g/dL (31-37) Red Cell Distribution Width 20.9 % (11.5-14.5) Platelet Count 417 x10^3/uL (140-400) Neutrophils (%) (Auto) 91 % (31-73) Lymphocytes (%) (Auto) 4 % (24-48) Monocytes (%) (Auto) 6 % (0-9) Eosinophils (%) (Auto) 0 % (0-3) Basophils (%) (Auto) 0 % (0-3) Neutrophils # (Auto) 16.4 x10^3/uL (1.8-7.7) Lymphocytes # (Auto) 0.7 x10^3/uL (1.0-4.8) Monocytes # (Auto) 1.0 x10^3/uL (0.0-1.1) Eosinophils # (Auto) 0.0 x10^3/uL (0.0-0.7) Basophils # (Auto) 0.0 x10^3/uL (0.0-0.2) Sodium Level 131 mmol/L (136-145) Potassium Level 4.0 mmol/L (3.5-5.1) Chloride Level 100 mmol/L (98-107) Carbon Dioxide Level 28 mmol/L (21-32) Anion Gap 3 (6-14) Blood Urea Nitrogen 13 mg/dL (8-26) Creatinine 1.0 mg/dL (0.7-1.3) Estimated GFR (Cockcroft-Gault) 96.1 Glucose Level 85 mg/dL (70-99) Calcium Level 7.2 mg/dL (8.5-10.1) Test 11/14/19 09:01 11/14/19 09:25 11/14/19 13:55 11/14/19 17:53 O2 Saturation 92 % (92-99) Arterial Blood pH 7.43 (7.35-7.45) Arterial Blood pCO2 at Patient Temp 32 mmHg (35-46) Arterial Blood pO2 at Patient Temp 75 mmHg (75-108) Arterial Blood HCO3 20 mmol/L (21-28) Arterial Blood Base Excess -4 mmol/L (-3-3) FiO2 40 White Blood Count 30.5 x10^3/uL (4.0-11.0) 37.1 x10^3/uL (4.0-11.0) Red Blood Count 2.77 x10^6/uL (4.30-5.70) 2.41 x10^6/uL (4.30-5.70) Hemoglobin 7.5 g/dL (13.0-17.5) 6.4 g/dL (13.0-17.5) Hematocrit 24.0 % (39.0-53.0) 20.4 % (39.0-53.0) Mean Corpuscular Volume 87 fL (79-100) 85 fL (79-100) Mean Corpuscular Hemoglobin 27 pg (25-35) 26 pg (25-35) Mean Corpuscular Hemoglobin Concent 31 g/dL (31-37) 31 g/dL (31-37) Red Cell Distribution Width 20.4 % (11.5-14.5) 20.5 % (11.5-14.5) Platelet Count 444 x10^3/uL (140-400) 463 x10^3/uL (140-400) Neutrophils (%) (Auto) 97 % (31-73) 96 % (31-73) Lymphocytes (%) (Auto) 2 % (24-48) 1 % (24-48) Monocytes (%) (Auto) 1 % (0-9) 3 % (0-9) Eosinophils (%) (Auto) 0 % (0-3) 0 % (0-3) Basophils (%) (Auto) 0 % (0-3) 0 % (0-3) Neutrophils # (Auto) 29.6 x10^3/uL (1.8-7.7) 35.4 x10^3/uL (1.8-7.7) Lymphocytes # (Auto) 0.5 x10^3/uL (1.0-4.8) 0.4 x10^3/uL (1.0-4.8) Monocytes # (Auto) 0.4 x10^3/uL (0.0-1.1) 1.1 x10^3/uL (0.0-1.1) Eosinophils # (Auto) 0.0 x10^3/uL (0.0-0.7) 0.0 x10^3/uL (0.0-0.7) Basophils # (Auto) 0.0 x10^3/uL (0.0-0.2) 0.1 x10^3/uL (0.0-0.2) Segmented Neutrophils % 81 % (35-66) Band Neutrophils % 16 % (0-9) Lymphocytes % 2 % (24-48) Monocytes % 1 % (0-10) Nucleated Red Blood Cells 1 Toxic Granulation Mod Platelet Estimate Increased (ADEQUATE) Platelet Clumps, EDTA Present Large Platelets Occ Hypochromasia Mod Anisocytosis Slight Sodium Level 132 mmol/L (136-145) 134 mmol/L (136-145) Potassium Level 4.1 mmol/L (3.5-5.1) 3.7 mmol/L (3.5-5.1) Chloride Level 101 mmol/L (98-107) 103 mmol/L (98-107) Carbon Dioxide Level 22 mmol/L (21-32) 25 mmol/L (21-32) Anion Gap 9 (6-14) 6 (6-14) Blood Urea Nitrogen 14 mg/dL (8-26) 14 mg/dL (8-26) Creatinine 1.3 mg/dL (0.7-1.3) 1.1 mg/dL (0.7-1.3) Estimated GFR (Cockcroft-Gault) 71.0 86.1 Glucose Level 141 mg/dL (70-99) 123 mg/dL (70-99) Lactic Acid Level 7.0 mmol/L (0.4-2.0) 3.9 mmol/L (0.4-2.0) Calcium Level 7.1 mg/dL (8.5-10.1) 6.7 mg/dL (8.5-10.1) Magnesium Level 2.1 mg/dL (1.8-2.4) Troponin I Quantitative 0.553 ng/mL (0.000-0.055) 2.220 ng/mL (0.000-0.055) Procalcitonin 0.70 ng/mL (0.00-0.10) BUN/Creatinine Ratio 13 (6-20) Total Bilirubin 1.0 mg/dL (0.2-1.0) Aspartate Amino Transf (AST/SGOT) 57 U/L (15-37) Alanine Aminotransferase (ALT/SGPT) 46 U/L (16-63) Alkaline Phosphatase 451 U/L (46-116) Total Protein 4.8 g/dL (6.4-8.2) Albumin 0.8 g/dL (3.4-5.0) Albumin/Globulin Ratio 0.2 (1.0-1.7) Glucose (Fingerstick) 101 mg/dL (70-99) Test 11/14/19 23:15 11/15/19 06:15 11/15/19 08:55 White Blood Count 48.7 x10^3/uL (4.0-11.0) 62.1 x10^3/uL (4.0-11.0) Red Blood Count 3.52 x10^6/uL (4.30-5.70) 3.25 x10^6/uL (4.30-5.70) Hemoglobin 9.5 g/dL (13.0-17.5) 8.9 g/dL (13.0-17.5) Hematocrit 29.6 % (39.0-53.0) 27.8 % (39.0-53.0) Mean Corpuscular Volume 84 fL (79-100) 86 fL (79-100) Mean Corpuscular Hemoglobin 27 pg (25-35) 27 pg (25-35) Mean Corpuscular Hemoglobin Concent 32 g/dL (31-37) 32 g/dL (31-37) Red Cell Distribution Width 19.0 % (11.5-14.5) 19.3 % (11.5-14.5) Platelet Count 408 x10^3/uL (140-400) 279 x10^3/uL (140-400) Neutrophils (%) (Auto) 97 % (31-73) Lymphocytes (%) (Auto) 1 % (24-48) Monocytes (%) (Auto) 2 % (0-9) Eosinophils (%) (Auto) 0 % (0-3) Basophils (%) (Auto) 0 % (0-3) Neutrophils # (Auto) 60.3 x10^3/uL (1.8-7.7) Lymphocytes # (Auto) 0.5 x10^3/uL (1.0-4.8) Monocytes # (Auto) 1.3 x10^3/uL (0.0-1.1) Eosinophils # (Auto) 0.0 x10^3/uL (0.0-0.7) Basophils # (Auto) 0.1 x10^3/uL (0.0-0.2) Segmented Neutrophils % 40 % (35-66) Band Neutrophils % 54 % (0-9) Monocytes % 2 % (0-10) Metamyelocytes % 4 % (0-0) Nucleated Red Blood Cells 1 Toxic Granulation Present Dohle Bodies Present Platelet Estimate Adequate (ADEQUATE) Anisocytosis Slight Sodium Level 133 mmol/L (136-145) Potassium Level 4.3 mmol/L (3.5-5.1) Chloride Level 102 mmol/L (98-107) Carbon Dioxide Level 21 mmol/L (21-32) Anion Gap 10 (6-14) Blood Urea Nitrogen 16 mg/dL (8-26) Creatinine 1.5 mg/dL (0.7-1.3) Estimated GFR (Cockcroft-Gault) 60.2 Glucose Level 80 mg/dL (70-99) Calcium Level 6.8 mg/dL (8.5-10.1) O2 Saturation 98 % (92-99) Arterial Blood pH 7.43 (7.35-7.45) Arterial Blood pH (Temp corrected) 7.41 Arterial Blood pCO2 at Patient Temp 23 mmHg (35-46) Arterial Blood pCO2 (Temp correct) 25 mmHg Arterial Blood pO2 at Patient Temp 140 mmHg (75-108) Arterial Blood pO2 (Temp corrected) 149 mmHg Arterial Blood HCO3 15 mmol/L (21-28) Arterial Blood Base Excess -8 mmol/L (-3-3) FiO2 45% vent Laboratory Tests Test 11/14/19 13:55 11/14/19 17:53 11/14/19 23:15 11/15/19 06:15 White Blood Count 37.1 x10^3/uL (4.0-11.0) 48.7 x10^3/uL (4.0-11.0) 62.1 x10^3/uL (4.0-11.0) Red Blood Count 2.41 x10^6/uL (4.30-5.70) 3.52 x10^6/uL (4.30-5.70) 3.25 x10^6/uL (4.30-5.70) Hemoglobin 6.4 g/dL (13.0-17.5) 9.5 g/dL (13.0-17.5) 8.9 g/dL (13.0-17.5) Hematocrit 20.4 % (39.0-53.0) 29.6 % (39.0-53.0) 27.8 % (39.0-53.0) Mean Corpuscular Volume 85 fL (79-100) 84 fL (79-100) 86 fL (79-100) Mean Corpuscular Hemoglobin 26 pg (25-35) 27 pg (25-35) 27 pg (25-35) Mean Corpuscular Hemoglobin Concent 31 g/dL (31-37) 32 g/dL (31-37) 32 g/dL (31-37) Red Cell Distribution Width 20.5 % (11.5-14.5) 19.0 % (11.5-14.5) 19.3 % (11.5-14.5) Platelet Count 463 x10^3/uL (140-400) 408 x10^3/uL (140-400) 279 x10^3/uL (140-400) Neutrophils (%) (Auto) 96 % (31-73) 97 % (31-73) Lymphocytes (%) (Auto) 1 % (24-48) 1 % (24-48) Monocytes (%) (Auto) 3 % (0-9) 2 % (0-9) Eosinophils (%) (Auto) 0 % (0-3) 0 % (0-3) Basophils (%) (Auto) 0 % (0-3) 0 % (0-3) Neutrophils # (Auto) 35.4 x10^3/uL (1.8-7.7) 60.3 x10^3/uL (1.8-7.7) Lymphocytes # (Auto) 0.4 x10^3/uL (1.0-4.8) 0.5 x10^3/uL (1.0-4.8) Monocytes # (Auto) 1.1 x10^3/uL (0.0-1.1) 1.3 x10^3/uL (0.0-1.1) Eosinophils # (Auto) 0.0 x10^3/uL (0.0-0.7) 0.0 x10^3/uL (0.0-0.7) Basophils # (Auto) 0.1 x10^3/uL (0.0-0.2) 0.1 x10^3/uL (0.0-0.2) Sodium Level 134 mmol/L (136-145) 133 mmol/L (136-145) Potassium Level 3.7 mmol/L (3.5-5.1) 4.3 mmol/L (3.5-5.1) Chloride Level 103 mmol/L (98-107) 102 mmol/L (98-107) Carbon Dioxide Level 25 mmol/L (21-32) 21 mmol/L (21-32) Anion Gap 6 (6-14) 10 (6-14) Blood Urea Nitrogen 14 mg/dL (8-26) 16 mg/dL (8-26) Creatinine 1.1 mg/dL (0.7-1.3) 1.5 mg/dL (0.7-1.3) Estimated GFR (Cockcroft-Gault) 86.1 60.2 BUN/Creatinine Ratio 13 (6-20) Glucose Level 123 mg/dL (70-99) 80 mg/dL (70-99) Lactic Acid Level 3.9 mmol/L (0.4-2.0) Calcium Level 6.7 mg/dL (8.5-10.1) 6.8 mg/dL (8.5-10.1) Total Bilirubin 1.0 mg/dL (0.2-1.0) Aspartate Amino Transf (AST/SGOT) 57 U/L (15-37) Alanine Aminotransferase (ALT/SGPT) 46 U/L (16-63) Alkaline Phosphatase 451 U/L (46-116) Troponin I Quantitative 2.220 ng/mL (0.000-0.055) Total Protein 4.8 g/dL (6.4-8.2) Albumin 0.8 g/dL (3.4-5.0) Albumin/Globulin Ratio 0.2 (1.0-1.7) Glucose (Fingerstick) 101 mg/dL (70-99) Segmented Neutrophils % 40 % (35-66) Band Neutrophils % 54 % (0-9) Monocytes % 2 % (0-10) Metamyelocytes % 4 % (0-0) Nucleated Red Blood Cells 1 Toxic Granulation Present Dohle Bodies Present Platelet Estimate Adequate (ADEQUATE) Anisocytosis Slight Test 11/15/19 08:55 O2 Saturation 98 % (92-99) Arterial Blood pH 7.43 (7.35-7.45) Arterial Blood pH (Temp corrected) 7.41 Arterial Blood pCO2 at Patient Temp 23 mmHg (35-46) Arterial Blood pCO2 (Temp correct) 25 mmHg Arterial Blood pO2 at Patient Temp 140 mmHg (75-108) Arterial Blood pO2 (Temp corrected) 149 mmHg Arterial Blood HCO3 15 mmol/L (21-28) Arterial Blood Base Excess -8 mmol/L (-3-3) FiO2 45% vent I have reviewed the following CT with continued pancreatic fluid, some drainage via RUQ site Problem List severe pancreatitis, c diff, sepsis, dvt cont abx and pressors d/w ID pt is prohibitive surgical candidate with known hostile abd and comorbidities. D/w IR, favor percutaneous drainage as possible benefiting sepsis d/w pt's on phone. Justicifation of Admission Dx: Justifications for Admission: Justification of Admission Dx: Yes Comminuty Aquired Pneumonia: Med-High Risk Pt Sepsis: Infection KARLA CALL MD Nov 15, 2019 12:47
--- NOTE | 2019-11-15 12:51 | PDOC2 ---
GI CONSULT Reason For Consult: Asked by Dr. Dawson to revisit re: pancreatitis HPI: HPI: 49 y/o male well known to us. 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 Underwent necrosectomy. Ultimately had trach. Spent some time at [facility]. 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 Has surgical G-J tube and was receiving nighttime feedings. Much weight loss. C. diff on more than one occasion. Presented this occasion with LE swelling and found to have bilateral DVT's. IVC filter has been placed. Yesterday had PEA, now intubated on ventilator. Imaging has shown persistent retrogastric fluid collection containing gas. Has had heartburn to a minor degree in the past. No other past GI issues. No prior endoscopy. He does NOT have HBV; serologies c/w prior vaccination. Would smoke occasional cigar. Alcohol occasionally. Prior to pancreatitis bowel function was normal. PMH: PMH: HTN, Depression. S/P multiple surgical interventions related to pancreatitis. FH: Family History: No pertinent hx (No GI issues) Social History: Smoke: No ALCOHOL: none Drugs: None ROS: Unable to obtain. Vitals: Vitals: Vital Signs Date Time Temp Pulse Resp B/P (MAP) Pulse Ox O2 Delivery O2 Flow Rate FiO2 11/15/19 11:25 100 Ventilator 11/15/19 06:00 136 26 81/68 (72) 11/15/19 04:00 101.8 101.8 Labs: Labs: Laboratory Tests Test 11/14/19 13:55 11/14/19 17:53 11/14/19 23:15 11/15/19 06:15 White Blood Count 37.1 x10^3/uL (4.0-11.0) 48.7 x10^3/uL (4.0-11.0) 62.1 x10^3/uL (4.0-11.0) Red Blood Count 2.41 x10^6/uL (4.30-5.70) 3.52 x10^6/uL (4.30-5.70) 3.25 x10^6/uL (4.30-5.70) Hemoglobin 6.4 g/dL (13.0-17.5) 9.5 g/dL (13.0-17.5) 8.9 g/dL (13.0-17.5) Hematocrit 20.4 % (39.0-53.0) 29.6 % (39.0-53.0) 27.8 % (39.0-53.0) Mean Corpuscular Volume 85 fL (79-100) 84 fL (79-100) 86 fL (79-100) Mean Corpuscular Hemoglobin 26 pg (25-35) 27 pg (25-35) 27 pg (25-35) Mean Corpuscular Hemoglobin Concent 31 g/dL (31-37) 32 g/dL (31-37) 32 g/dL (31-37) Red Cell Distribution Width 20.5 % (11.5-14.5) 19.0 % (11.5-14.5) 19.3 % (11.5-14.5) Platelet Count 463 x10^3/uL (140-400) 408 x10^3/uL (140-400) 279 x10^3/uL (140-400) Neutrophils (%) (Auto) 96 % (31-73) 97 % (31-73) Lymphocytes (%) (Auto) 1 % (24-48) 1 % (24-48) Monocytes (%) (Auto) 3 % (0-9) 2 % (0-9) Eosinophils (%) (Auto) 0 % (0-3) 0 % (0-3) Basophils (%) (Auto) 0 % (0-3) 0 % (0-3) Neutrophils # (Auto) 35.4 x10^3/uL (1.8-7.7) 60.3 x10^3/uL (1.8-7.7) Lymphocytes # (Auto) 0.4 x10^3/uL (1.0-4.8) 0.5 x10^3/uL (1.0-4.8) Monocytes # (Auto) 1.1 x10^3/uL (0.0-1.1) 1.3 x10^3/uL (0.0-1.1) Eosinophils # (Auto) 0.0 x10^3/uL (0.0-0.7) 0.0 x10^3/uL (0.0-0.7) Basophils # (Auto) 0.1 x10^3/uL (0.0-0.2) 0.1 x10^3/uL (0.0-0.2) Sodium Level 134 mmol/L (136-145) 133 mmol/L (136-145) Potassium Level 3.7 mmol/L (3.5-5.1) 4.3 mmol/L (3.5-5.1) Chloride Level 103 mmol/L (98-107) 102 mmol/L (98-107) Carbon Dioxide Level 25 mmol/L (21-32) 21 mmol/L (21-32) Anion Gap 6 (6-14) 10 (6-14) Blood Urea Nitrogen 14 mg/dL (8-26) 16 mg/dL (8-26) Creatinine 1.1 mg/dL (0.7-1.3) 1.5 mg/dL (0.7-1.3) Estimated GFR (Cockcroft-Gault) 86.1 60.2 BUN/Creatinine Ratio 13 (6-20) Glucose Level 123 mg/dL (70-99) 80 mg/dL (70-99) Lactic Acid Level 3.9 mmol/L (0.4-2.0) Calcium Level 6.7 mg/dL (8.5-10.1) 6.8 mg/dL (8.5-10.1) Total Bilirubin 1.0 mg/dL (0.2-1.0) Aspartate Amino Transf (AST/SGOT) 57 U/L (15-37) Alanine Aminotransferase (ALT/SGPT) 46 U/L (16-63) Alkaline Phosphatase 451 U/L (46-116) Troponin I Quantitative 2.220 ng/mL (0.000-0.055) Total Protein 4.8 g/dL (6.4-8.2) Albumin 0.8 g/dL (3.4-5.0) Albumin/Globulin Ratio 0.2 (1.0-1.7) Glucose (Fingerstick) 101 mg/dL (70-99) Segmented Neutrophils % 40 % (35-66) Band Neutrophils % 54 % (0-9) Monocytes % 2 % (0-10) Metamyelocytes % 4 % (0-0) Nucleated Red Blood Cells 1 Toxic Granulation Present Dohle Bodies Present Platelet Estimate Adequate (ADEQUATE) Anisocytosis Slight Test 11/15/19 08:55 O2 Saturation 98 % (92-99) Arterial Blood pH 7.43 (7.35-7.45) Arterial Blood pH (Temp corrected) 7.41 Arterial Blood pCO2 at Patient Temp 23 mmHg (35-46) Arterial Blood pCO2 (Temp correct) 25 mmHg Arterial Blood pO2 at Patient Temp 140 mmHg (75-108) Arterial Blood pO2 (Temp corrected) 149 mmHg Arterial Blood HCO3 15 mmol/L (21-28) Arterial Blood Base Excess -8 mmol/L (-3-3) FiO2 45% vent Marked leukocytosis with left shift. Allergies: Coded Allergies: No Known Drug Allergies (Unverified , 01/28/16) Medications: Current Medications Medications (Trade) Dose Ordered Sig/Jesse Route PRN Reason Start Time Stop Time Status Last Admin Dose Admin Lidocaine HCl (Buffered Lidocaine 1%) 6 ml 1X ONCE INJ 11/14/19 16:15 11/14/19 16:16 DC 11/14/19 16:51 Iohexol (Omnipaque 240 Mg/ml) 50 ml 1X ONCE IJ 11/14/19 16:15 11/14/19 16:16 DC 11/14/19 16:52 Levetiracetam 1000 mg/Dextrose 110 ml @ 440 mls/hr 1X ONCE IV 11/14/19 16:15 11/14/19 16:29 DC 11/14/19 17:09 Levetiracetam 500 mg/Dextrose 105 ml @ 420 mls/hr Q12HR IV 11/14/19 21:00 11/14/19 21:56 DC 11/14/19 20:55 Vancomycin HCl 1.25 gm/Sodium Chloride 250 ml @ 167 mls/hr Q12H IV 11/15/19 00:01 11/15/19 00:18 Heparin Sodium/ Sodium Chloride (HEPARIN for ARTERIAL LINE FLUSH) 1,000 unit 1X ONCE IV 11/14/19 17:00 11/14/19 17:01 DC 11/14/19 16:54 Levetiracetam 500 mg/Dextrose 105 ml @ 420 mls/hr 1X ONCE IV 11/14/19 22:30 11/14/19 22:44 DC 11/14/19 22:02 Levetiracetam 1000 mg/Dextrose 110 ml @ 440 mls/hr Q12HR IV 11/15/19 09:00 11/15/19 08:48 Valproic Acid 1000 mg/Dextrose 60 ml @ 55 mls/hr 1X ONCE IV 11/14/19 23:00 11/15/19 00:05 DC 11/14/19 23:01 Valproic Acid 500 mg/Dextrose 55 ml @ 55 mls/hr Q8HRS IV 11/15/19 06:00 11/15/19 05:39 Acetaminophen (Tylenol) 650 mg PRN Q6HRS PRN PEG MILD PAIN / TEMP > 100.3'F 11/15/19 04:15 11/15/19 04:33 Cefepime HCl (Maxipime) 1 gm Q8HRS IVP 11/15/19 07:00 11/15/19 08:58 Sodium Bicarbonate (Sodium Bicarb Adult 8.4% Syr) 50 meq 1X ONCE IV 11/15/19 10:15 11/15/19 10:16 DC 11/15/19 10:16 Imaging: Imaging: Reviewed CT A/P: Retrogastric fluid collection easily appreciated. PE: GEN: Intubated. unresponsive. HEENT: Atraumatic, OG in place with bilious output. LUNGS: CTAB HEART: RRR, no murmurs ABD: NABS, S/sl. distended, no masses. Bag over RUQ fistula. G-tube in place. EXTREMITY: No edema SKIN: No rashes, no jaundice NEURO/PSYCH: Obtunded. Appear to be some DTR's, symmetric. Otherwise flaccid. A/P: A/P: Prior necrotizing biliary pancreatitis with several sequelae. Retrogastric fluid collection; likely represents pseudocyst. Given air/gas within, may be infected. Post PEA--had PE? Cholecystocutaneous fistula. DOES NOT HAVE HEPATITIS B. Continue support. Drainage of fluid collection was discussed with Dr. Dawson. Not ideal, but too sick for surgery. PPI if not receiving. Other pending. MARIA L CRUZ MD Nov 15, 2019 12:51
--- NOTE | 2019-11-15 13:45 | NUR ---
1430 Levo titrated up as needed. See flow sheet for specifics. Raas -4. NO overt seizure activity Febrile w increased ^WBC. Dr Gibson informed w documentation per Macario RN.Phone communication w Dr Gibson and Dr English.Phone permission for rad guided drain obtained/charted. Communication w paper machine supervisor/set up for IR procedure scheduled -1400. To IR per bed/full monitor<RT/ICU nurse and 2 IR personnel. All meds w patient. Note Output diminished past 8 H
--- NOTE | 2019-11-15 14:01 | NUR ---
Pt to IR for abd drain placement in CT, transported on vent with ICU and IR staff. Tolerated well, no VS changes. ANNA RN
[2019-11-15] MEDS ORDERED: LIDOCAINE WITH 8.4% SOD BICARB 3 ML DISP.SYRIN. INJ ONE (14:15)
--- NOTE | 2019-11-15 14:33 | PDOC ---
BRIEF OPERATIVE NOTE Date: Nov 15, 2019 Pre-Op Diagnosis Pancreatic Bed Abscess Post-Op Diagnosis Same Procedure Performed CT Abscess Drain placement Surgeon Dianna Tail Board Man n/a EBL trace Anesthesiologist n/a Specimens Obtained 12 cc viscous sanguineous material Findings 14 FR drain placed in complex Pancreate Bed Abscess Complications none Additional Remarks discussed with Dr. Eunice MCKEON,ARYAN Del Castillo MD Nov 15, 2019 14:33
--- NOTE | 2019-11-15 16:56 | PDOC ---
PROGRESS NOTES Assessment 1. 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 The neurologic examination is not entirely valid because of sedating medication. 2. Status epilepticus currently on Depakote and Keppra. There is no longer evidence clinically of seizure activity. 3. Pancreatitis with the development of abscess which was percutaneously drained. 4. Respiratory failure currently intubated and ventilated 5. Gastrointestinal hemorrhage while on anticoagulation. This has been discontinued and he was transfused. Hemoglobin has been relatively stable. Plan 1. Prognosis from the anoxic injury with prolonged seizure is very poor. We can consider an EEG on Sunday to determine if there is subclinical seizure. Clinically, the seizures have stopped. 2. He has had an elevating white blood cell count due to underlying infection. He underwent drainage which will hopefully be helpful. 3. Neurology will follow on a daily basis to determine if the examination improves as sedation is tapered. Depending on the exam he may need further imaging of his head. 4. I discussed with family members at bedside and endeavored to answer all of their questions. Subjective He was intubated, ventilated and sedated. He was nonverbal. Objective Vital Signs Date Time Temp Pulse Resp B/P (MAP) Pulse Ox O2 Delivery O2 Flow Rate FiO2 11/15/19 16:36 121 16 98/71 (80) 100 Ventilator 11/15/19 16:00 98.3 98.3 Intake and Output 11/15/19 07:00 Intake Total 4218.3 ml Output Total 905 ml Balance 3313.3 ml Intake Oral 0 ml IV Total 4218.3 ml Output Urine Total 555 ml Gastric Drainage Total 350 ml PHYSICAL EXAM He was intubated, ventilated and sedated. The eyes were closed. When held open the eyes were disconjugate. Pupils were 2 mm and poorly reactive. Oculocephalic reflex was not intact. Corneal reflex was not intact. He did not respond to visual threat or loud clap. The face was symmetric. Muscle bulk was symmetric. Tone was flaccid. He did not respond to nailbed pressure in any of the extremities. There was severe edema in the legs and feet which was pitting. There were no toe signs. Review of Relevant I have reviewed the following items alexandra (where applicable) has been applied. Labs Laboratory Tests Test 11/13/19 16:59 11/13/19 21:57 11/14/19 03:30 11/14/19 07:27 Glucose (Fingerstick) 96 mg/dL (70-99) 75 mg/dL (70-99) 55 mg/dL (70-99) White Blood Count 18.1 x10^3/uL (4.0-11.0) Red Blood Count 2.71 x10^6/uL (4.30-5.70) Hemoglobin 7.3 g/dL (13.0-17.5) Hematocrit 22.9 % (39.0-53.0) Mean Corpuscular Volume 85 fL (79-100) Mean Corpuscular Hemoglobin 27 pg (25-35) Mean Corpuscular Hemoglobin Concent 32 g/dL (31-37) Red Cell Distribution Width 20.9 % (11.5-14.5) Platelet Count 417 x10^3/uL (140-400) Neutrophils (%) (Auto) 91 % (31-73) Lymphocytes (%) (Auto) 4 % (24-48) Monocytes (%) (Auto) 6 % (0-9) Eosinophils (%) (Auto) 0 % (0-3) Basophils (%) (Auto) 0 % (0-3) Neutrophils # (Auto) 16.4 x10^3/uL (1.8-7.7) Lymphocytes # (Auto) 0.7 x10^3/uL (1.0-4.8) Monocytes # (Auto) 1.0 x10^3/uL (0.0-1.1) Eosinophils # (Auto) 0.0 x10^3/uL (0.0-0.7) Basophils # (Auto) 0.0 x10^3/uL (0.0-0.2) Sodium Level 131 mmol/L (136-145) Potassium Level 4.0 mmol/L (3.5-5.1) Chloride Level 100 mmol/L (98-107) Carbon Dioxide Level 28 mmol/L (21-32) Anion Gap 3 (6-14) Blood Urea Nitrogen 13 mg/dL (8-26) Creatinine 1.0 mg/dL (0.7-1.3) Estimated GFR (Cockcroft-Gault) 96.1 Glucose Level 85 mg/dL (70-99) Calcium Level 7.2 mg/dL (8.5-10.1) Test 11/14/19 09:01 11/14/19 09:25 11/14/19 13:55 11/14/19 17:53 O2 Saturation 92 % (92-99) Arterial Blood pH 7.43 (7.35-7.45) Arterial Blood pCO2 at Patient Temp 32 mmHg (35-46) Arterial Blood pO2 at Patient Temp 75 mmHg (75-108) Arterial Blood HCO3 20 mmol/L (21-28) Arterial Blood Base Excess -4 mmol/L (-3-3) FiO2 40 White Blood Count 30.5 x10^3/uL (4.0-11.0) 37.1 x10^3/uL (4.0-11.0) Red Blood Count 2.77 x10^6/uL (4.30-5.70) 2.41 x10^6/uL (4.30-5.70) Hemoglobin 7.5 g/dL (13.0-17.5) 6.4 g/dL (13.0-17.5) Hematocrit 24.0 % (39.0-53.0) 20.4 % (39.0-53.0) Mean Corpuscular Volume 87 fL (79-100) 85 fL (79-100) Mean Corpuscular Hemoglobin 27 pg (25-35) 26 pg (25-35) Mean Corpuscular Hemoglobin Concent 31 g/dL (31-37) 31 g/dL (31-37) Red Cell Distribution Width 20.4 % (11.5-14.5) 20.5 % (11.5-14.5) Platelet Count 444 x10^3/uL (140-400) 463 x10^3/uL (140-400) Neutrophils (%) (Auto) 97 % (31-73) 96 % (31-73) Lymphocytes (%) (Auto) 2 % (24-48) 1 % (24-48) Monocytes (%) (Auto) 1 % (0-9) 3 % (0-9) Eosinophils (%) (Auto) 0 % (0-3) 0 % (0-3) Basophils (%) (Auto) 0 % (0-3) 0 % (0-3) Neutrophils # (Auto) 29.6 x10^3/uL (1.8-7.7) 35.4 x10^3/uL (1.8-7.7) Lymphocytes # (Auto) 0.5 x10^3/uL (1.0-4.8) 0.4 x10^3/uL (1.0-4.8) Monocytes # (Auto) 0.4 x10^3/uL (0.0-1.1) 1.1 x10^3/uL (0.0-1.1) Eosinophils # (Auto) 0.0 x10^3/uL (0.0-0.7) 0.0 x10^3/uL (0.0-0.7) Basophils # (Auto) 0.0 x10^3/uL (0.0-0.2) 0.1 x10^3/uL (0.0-0.2) Segmented Neutrophils % 81 % (35-66) Band Neutrophils % 16 % (0-9) Lymphocytes % 2 % (24-48) Monocytes % 1 % (0-10) Nucleated Red Blood Cells 1 Toxic Granulation Mod Platelet Estimate Increased (ADEQUATE) Platelet Clumps, EDTA Present Large Platelets Occ Hypochromasia Mod Anisocytosis Slight Sodium Level 132 mmol/L (136-145) 134 mmol/L (136-145) Potassium Level 4.1 mmol/L (3.5-5.1) 3.7 mmol/L (3.5-5.1) Chloride Level 101 mmol/L (98-107) 103 mmol/L (98-107) Carbon Dioxide Level 22 mmol/L (21-32) 25 mmol/L (21-32) Anion Gap 9 (6-14) 6 (6-14) Blood Urea Nitrogen 14 mg/dL (8-26) 14 mg/dL (8-26) Creatinine 1.3 mg/dL (0.7-1.3) 1.1 mg/dL (0.7-1.3) Estimated GFR (Cockcroft-Gault) 71.0 86.1 Glucose Level 141 mg/dL (70-99) 123 mg/dL (70-99) Lactic Acid Level 7.0 mmol/L (0.4-2.0) 3.9 mmol/L (0.4-2.0) Calcium Level 7.1 mg/dL (8.5-10.1) 6.7 mg/dL (8.5-10.1) Magnesium Level 2.1 mg/dL (1.8-2.4) Troponin I Quantitative 0.553 ng/mL (0.000-0.055) 2.220 ng/mL (0.000-0.055) Procalcitonin 0.70 ng/mL (0.00-0.10) BUN/Creatinine Ratio 13 (6-20) Total Bilirubin 1.0 mg/dL (0.2-1.0) Aspartate Amino Transf (AST/SGOT) 57 U/L (15-37) Alanine Aminotransferase (ALT/SGPT) 46 U/L (16-63) Alkaline Phosphatase 451 U/L (46-116) Total Protein 4.8 g/dL (6.4-8.2) Albumin 0.8 g/dL (3.4-5.0) Albumin/Globulin Ratio 0.2 (1.0-1.7) Glucose (Fingerstick) 101 mg/dL (70-99) Test 11/14/19 23:15 11/15/19 06:15 11/15/19 08:55 White Blood Count 48.7 x10^3/uL (4.0-11.0) 62.1 x10^3/uL (4.0-11.0) Red Blood Count 3.52 x10^6/uL (4.30-5.70) 3.25 x10^6/uL (4.30-5.70) Hemoglobin 9.5 g/dL (13.0-17.5) 8.9 g/dL (13.0-17.5) Hematocrit 29.6 % (39.0-53.0) 27.8 % (39.0-53.0) Mean Corpuscular Volume 84 fL (79-100) 86 fL (79-100) Mean Corpuscular Hemoglobin 27 pg (25-35) 27 pg (25-35) Mean Corpuscular Hemoglobin Concent 32 g/dL (31-37) 32 g/dL (31-37) Red Cell Distribution Width 19.0 % (11.5-14.5) 19.3 % (11.5-14.5) Platelet Count 408 x10^3/uL (140-400) 279 x10^3/uL (140-400) Neutrophils (%) (Auto) 97 % (31-73) Lymphocytes (%) (Auto) 1 % (24-48) Monocytes (%) (Auto) 2 % (0-9) Eosinophils (%) (Auto) 0 % (0-3) Basophils (%) (Auto) 0 % (0-3) Neutrophils # (Auto) 60.3 x10^3/uL (1.8-7.7) Lymphocytes # (Auto) 0.5 x10^3/uL (1.0-4.8) Monocytes # (Auto) 1.3 x10^3/uL (0.0-1.1) Eosinophils # (Auto) 0.0 x10^3/uL (0.0-0.7) Basophils # (Auto) 0.1 x10^3/uL (0.0-0.2) Segmented Neutrophils % 40 % (35-66) Band Neutrophils % 54 % (0-9) Monocytes % 2 % (0-10) Metamyelocytes % 4 % (0-0) Nucleated Red Blood Cells 1 Toxic Granulation Present Dohle Bodies Present Platelet Estimate Adequate (ADEQUATE) Anisocytosis Slight Sodium Level 133 mmol/L (136-145) Potassium Level 4.3 mmol/L (3.5-5.1) Chloride Level 102 mmol/L (98-107) Carbon Dioxide Level 21 mmol/L (21-32) Anion Gap 10 (6-14) Blood Urea Nitrogen 16 mg/dL (8-26) Creatinine 1.5 mg/dL (0.7-1.3) Estimated GFR (Cockcroft-Gault) 60.2 Glucose Level 80 mg/dL (70-99) Calcium Level 6.8 mg/dL (8.5-10.1) O2 Saturation 98 % (92-99) Arterial Blood pH 7.43 (7.35-7.45) Arterial Blood pH (Temp corrected) 7.41 Arterial Blood pCO2 at Patient Temp 23 mmHg (35-46) Arterial Blood pCO2 (Temp correct) 25 mmHg Arterial Blood pO2 at Patient Temp 140 mmHg (75-108) Arterial Blood pO2 (Temp corrected) 149 mmHg Arterial Blood HCO3 15 mmol/L (21-28) Arterial Blood Base Excess -8 mmol/L (-3-3) FiO2 45% vent Laboratory Tests Test 11/14/19 17:53 11/14/19 23:15 11/15/19 06:15 11/15/19 08:55 Glucose (Fingerstick) 101 mg/dL (70-99) White Blood Count 48.7 x10^3/uL (4.0-11.0) 62.1 x10^3/uL (4.0-11.0) Red Blood Count 3.52 x10^6/uL (4.30-5.70) 3.25 x10^6/uL (4.30-5.70) Hemoglobin 9.5 g/dL (13.0-17.5) 8.9 g/dL (13.0-17.5) Hematocrit 29.6 % (39.0-53.0) 27.8 % (39.0-53.0) Mean Corpuscular Volume 84 fL (79-100) 86 fL (79-100) Mean Corpuscular Hemoglobin 27 pg (25-35) 27 pg (25-35) Mean Corpuscular Hemoglobin Concent 32 g/dL (31-37) 32 g/dL (31-37) Red Cell Distribution Width 19.0 % (11.5-14.5) 19.3 % (11.5-14.5) Platelet Count 408 x10^3/uL (140-400) 279 x10^3/uL (140-400) Neutrophils (%) (Auto) 97 % (31-73) Lymphocytes (%) (Auto) 1 % (24-48) Monocytes (%) (Auto) 2 % (0-9) Eosinophils (%) (Auto) 0 % (0-3) Basophils (%) (Auto) 0 % (0-3) Neutrophils # (Auto) 60.3 x10^3/uL (1.8-7.7) Lymphocytes # (Auto) 0.5 x10^3/uL (1.0-4.8) Monocytes # (Auto) 1.3 x10^3/uL (0.0-1.1) Eosinophils # (Auto) 0.0 x10^3/uL (0.0-0.7) Basophils # (Auto) 0.1 x10^3/uL (0.0-0.2) Segmented Neutrophils % 40 % (35-66) Band Neutrophils % 54 % (0-9) Monocytes % 2 % (0-10) Metamyelocytes % 4 % (0-0) Nucleated Red Blood Cells 1 Toxic Granulation Present Dohle Bodies Present Platelet Estimate Adequate (ADEQUATE) Anisocytosis Slight Sodium Level 133 mmol/L (136-145) Potassium Level 4.3 mmol/L (3.5-5.1) Chloride Level 102 mmol/L (98-107) Carbon Dioxide Level 21 mmol/L (21-32) Anion Gap 10 (6-14) Blood Urea Nitrogen 16 mg/dL (8-26) Creatinine 1.5 mg/dL (0.7-1.3) Estimated GFR (Cockcroft-Gault) 60.2 Glucose Level 80 mg/dL (70-99) Calcium Level 6.8 mg/dL (8.5-10.1) O2 Saturation 98 % (92-99) Arterial Blood pH 7.43 (7.35-7.45) Arterial Blood pH (Temp corrected) 7.41 Arterial Blood pCO2 at Patient Temp 23 mmHg (35-46) Arterial Blood pCO2 (Temp correct) 25 mmHg Arterial Blood pO2 at Patient Temp 140 mmHg (75-108) Arterial Blood pO2 (Temp corrected) 149 mmHg Arterial Blood HCO3 15 mmol/L (21-28) Arterial Blood Base Excess -8 mmol/L (-3-3) FiO2 45% vent Microbiology 11/14/19 Blood Culture - Preliminary, Resulted NO GROWTH AFTER 1 DAY 11/14/19 Gram Stain Evaluation - Final, Resulted 11/14/19 Respiratory Culture - Preliminary, Resulted 11/07/19 Urine Culture - Final, Complete Medications Current Medications Ceftriaxone Sodium (Rocephin) 1 gm 1X ONCE IVP ; Start 11/08/19 at 00:00; Stop 11/08/19 at 01:23; Status DC Enoxaparin Sodium (Lovenox 80mg Syringe) 80 mg 1X ONCE SQ Last administered on 11/08/19at 02:43; Start 11/08/19 at 00:00; Stop 11/08/19 at 00:01; Status DC Ceftriaxone Sodium (Rocephin Im) 1 gm 1X ONCE IM Last administered on 11/07at 02:42; Start 11/08/19 at 01:45; Stop 11/08/19 at 01:46; Status DC Lorazepam (Ativan) 0.5 mg 1X ONCE PO Last administered on 11/08/19at 03:28; Start 11/08/19 at 03:15; Stop 11/08/19 at 03:16; Status DC Acetaminophen (Tylenol) 500 mg PRN Q6HRS PRN PO FEVER Last administered on 11/12/19at 04:36; Start 11/08/19 at 07:30 Alprazolam (Xanax) 0.5 mg HS PO Last administered on 11/11/19at 20:38; Start 11/08/19 at 21:00 Buspirone HCl (Buspar) 10 mg BIDACBL PO Last administered on 11/08/19at 10:54; Start 11/08/19 at 07:30; Stop 11/08/19 at 11:46; Status DC Ferrous Sulfate (Feosol) 325 mg BIDWMEALS PO Last administered on 11/15/19at 08: 59; Start 11/08/19 at 08:00 Gabapentin (Neurontin) 100 mg TID PO Last administered on 11/08/19at 10:54; Start 11/08/19 at 09:00; Stop 11/08/19 at 11:46; Status DC Mirtazapine (Remeron) 15 mg QHS PO ; Start 11/08/19 at 21:00; Stop 11/08/19 at 17:19; Status DC Pantoprazole Sodium (Protonix) 40 mg DAILYAC PO Last administered on 11/15/19at 08:59; Start 11/08/19 at 08:00; Stop 11/15/19 at 12:56; Status DC Trazodone HCl (Desyrel) 50 mg QHS PO ; Start 11/08/19 at 21:00; Stop 11/08/19 at 17:19; Status DC Oxycodone HCl (Roxicodone) 15 mg PRN Q6HRS PRN PO PAIN Last administered on 11/13/19at 11:01; Start 11/08/19 at 07:45 Apixaban (Eliquis) 10 mg BID PO Last administered on 11/13/19at 21:32; Start 11/08/19 at 09:00; Stop 11/14/19 at 10:08; Status DC Apixaban (Eliquis) 5 mg BID PO ; Start 11/15/19 at 09:00; Stop 11/14/19 at 10:08; Status DC Info (Anti-Coagulation Monitoring By Pharmacy) 1 each PRN DAILY PRN MC SEE COMMENTS Last administered on 11/13/19at 15:20; Start 11/08/19 at 07:45 Vancomycin HCl (Vancomycin Oral Solution) 125 mg [id number] PO Last administered on 11/08/19at 20:48; Start 11/08/19 at 17:30; Stop 11/09/19 at 09:55; Status DC Vancomycin HCl (Vancomycin Oral Solution) 250 mg [id number] PO Last administered on 11/11/19at 20:38; Start 11/09/19 at 13:00; Stop 11/12/19 at 09:03; Status DC Lactobacillus Rhamnosus (Culturelle) 1 cap BID PO Last administered on 11/15/19at 08:59; Start 11/09/19 at 21:00 Piperacillin Sod/ Tazobactam Sod 3.375 gm/Sodium Chloride 50 ml @ 100 mls/hr Q6HRS IV Last administered on 11/10/19at 05:58; Start 11/09/19 at 18:00; Stop 11/10/19 at 11:45; Status DC Temazepam (Restoril) 15 mg PRN QHS PRN PO INSOMNIA Last administered on 11/12/19at 23:15; Start 11/12/19 at 09:00 Vancomycin HCl (Vancomycin Oral Solution) 125 mg [id number] PO Last administered on 11/15/19at 16:22; Start 11/12/19 at 10:00 Iohexol (Omnipaque 350 Mg/ml) 100 ml 1X ONCE IV Last administered on 11/13/19at 08:15; Start 11/13/19 at 08:15; Stop 11/13/19 at 08:22; Status DC Info (CONTRAST GIVEN -- Rx MONITORING) 1 each PRN DAILY PRN MC SEE COMMENTS; Start 11/13/19 at 08:30; Stop 11/13/19 at 09:04; Status DC Fentanyl Citrate (Fentanyl 2ml Vial) 100 mcg STK-MED ONCE .ROUTE ; Start 11/13/19 at 08:43; Stop 11/13/19 at 08:43; Status DC Iohexol (Omnipaque 240 Mg/ml) 50 ml STK-MED ONCE .ROUTE ; Start 11/13/19 at 08:45; Stop 11/13/19 at 08:46; Status DC Fentanyl Citrate (Fentanyl 2ml Vial) 50 mcg 1X ONCE IV Last administered on 11/13/19at 09:37; Start 11/13/19 at 09:00; Stop 11/13/19 at 09:03; Status DC Iohexol (Omnipaque 240 Mg/ml) 50 ml 1X ONCE PO Last administered on 11/13/19at 09:37; Start 11/13/19 at 09:00; Stop 11/13/19 at 09:03; Status DC Info (CONTRAST GIVEN -- Rx MONITORING) 1 each PRN DAILY PRN MC SEE COMMENTS; Start 11/13/19 at 09:15; Stop 11/15/19 at 09:14; Status DC Morphine Sulfate (Morphine Sulfate) 2 mg PRN Q2HR PRN IV PAIN Last administered on 11/13/19at 11:34; Start 11/13/19 at 11:30; Stop 11/13/19 at 13:53; Status DC Morphine Sulfate (Morphine Sulfate) 4 mg PRN Q2HR PRN IVP MODERATE TO SEVERE PAIN Last administered on 11/14/19at 08:16; Start 11/13/19 at 14:00 Ondansetron HCl (Zofran) 4 mg PRN Q6HRS PRN IVP NAUSEA/VOMITING Last administe red on 11/14/19at 00:13; Start 11/13/19 at 19:30 Dextrose (Dextrose 50%-Water Syringe) 25 gm STK-MED ONCE IV ; Start 11/14/19 at 07:28; Stop 11/14/19 at 07:28; Status DC Epinephrine HCl 5 mg/Sodium Chloride 255 ml @ 23.47 mls/ hr 1X ONCE IV ; Start 11/14/19 at 08:00; Stop 11/14/19 at 18:51; Status DC Fentanyl Citrate 30 ml @ 0 mls/hr CONT PRN IV SEE PROTOCOL Last administered on 11/15/19at 10:32; Start 11/14/19 at 08:15 Propofol 100 ml @ 0 mls/hr CONT PRN IV SEE PROTOCOL; Start 11/14/19 at 08:15 Midazolam HCl 100 ml @ 0 mls/hr CONT PRN IV SEE PROTOCOL Last administered on 11/15/19at 08:36; Start 11/14/19 at 08:15 Meropenem 500 mg/ Sodium Chloride 50 ml @ 100 mls/hr Q6HRS IV Last administered on 11/15/19at 05:29; Start 11/14/19 at 12:00; Stop 11/15/19 at 06:10; Status DC Vancomycin HCl (Vanco Per Pharmacy) 1 each PRN DAILY PRN MC SEE COMMENTS Last administered on 11/15/19at 12:35; Start 11/14/19 at 09:00 Metronidazole 100 ml @ 100 mls/hr Q8HRS IV Last administered on 11/15/19at 14:16; Start 11/14/19 at 12:00 Micafungin Sodium 100 mg/Dextrose 100 ml @ 100 mls/hr Q24H IV Last administered on 11/15/19at 08:37; Start 11/14/19 at 09:00 Metronidazole 100 ml @ 100 mls/hr Q8HRS IV ; Start 11/14/19 at 09:05; Stop 11/14/19 at 13:38; Status DC Vancomycin HCl 2 gm/Sodium Chloride 500 ml @ 250 mls/hr 1X ONCE IV Last administered on 11/14/19at 12:04; Start 11/14/19 at 10:00; Stop 11/14/19 at 11: 59; Status DC Norepinephrine Bitartrate 8 mg/ Dextrose 258 ml @ 14.841 mls/ hr CONT PRN IV PER PROTOCOL Last administered on 11/15/19at 10:31; Start 11/14/19 at 09:30 Heparin Sodium/ Dextrose 250 ml @ 9.2 mls/hr CONT PRN IV PER PROTOCOL; Start 11/14/19 at 10:00; Stop 11/14/19 at 16:18; Status DC Heparin Sodium (Porcine) (Heparin Sodium) 1,900 unit PRN Q6HRS PRN IV FOR UFH LEVEL LESS THAN 0.2; Start 11/14/19 at 10:00; Stop 11/14/19 at 16:18; Status DC Heparin Sodium (Porcine) (Heparin Sodium) 4,000 unit 1X ONCE IV ; Start 11/14/19 at 10:00; Stop 11/14/19 at 16:18; Status DC Aspirin (Woodrow Aspirin) 325 mg 1X ONCE JT ; Start 11/14/19 at 10:30; Stop 11/14/19 at 16:18; Status DC Sodium Chloride 1,000 ml @ 500 mls/hr Q2H IV Last administered on 11/14/19at 13:31; Start 11/14/19 at 11:30; Stop 11/14/19 at 15:29; Status DC Lidocaine HCl (Buffered Lidocaine 1%) 3 ml STK-MED ONCE .ROUTE ; Start 11/14/19 at 15:06; Stop 11/14/19 at 15:07; Status DC Iohexol (Omnipaque 240 Mg/ml) 50 ml STK-MED ONCE .ROUTE ; Start 11/14/19 at 15:06; Stop 11/14/19 at 15:07; Status DC Lidocaine HCl (Buffered Lidocaine 1%) 6 ml 1X ONCE INJ Last administered on 11/14/19at 16:51; Start 11/14/19 at 16:15; Stop 11/14/19 at 16:16; Status DC Iohexol (Omnipaque 240 Mg/ml) 50 ml 1X ONCE IJ Last administered on 11/14/19at 16:52; Start 11/14/19 at 16:15; Stop 11/14/19 at 16:16; Status DC Iohexol (Omnipaque 240 Mg/ml) 50 ml STK-MED ONCE .ROUTE ; Start 11/14/19 at 16:09; Stop 11/14/19 at 16:09; Status DC Levetiracetam 1000 mg/Dextrose 110 ml @ 440 mls/hr 1X ONCE IV Last administered on 11/14/19at 17:09; Start 11/14/19 at 16:15; Stop 11/14/19 at 16:29; Status DC Levetiracetam 500 mg/Dextrose 105 ml @ 420 mls/hr Q12HR IV Last administered on 11/14/19at 20:55; Start 11/14/19 at 21:00; Stop 11/14/19 at 21:56; Status DC Iohexol (Omnipaque 240 Mg/ml) 50 ml STK-MED ONCE .ROUTE ; Start 11/14/19 at 16:14; Stop 11/14/19 at 16:15; Status DC Vancomycin HCl 1.25 gm/Sodium Chloride 250 ml @ 167 mls/hr Q12H IV Last administered on 11/15/19at 14:17; Start 11/15/19 at 00:01 Vancomycin HCl (Vancomycin Trough Level) 1 each 1X ONCE MC ; Start 11/15/19 at 23:30; Stop 11/15/19 at 23:31 Heparin Sodium/ Sodium Chloride 500 ml @ As Directed STK-MED ONCE .ROUTE ; Start 11/14/19 at 16:41; Stop 11/14/19 at 16:41; Status DC Heparin Sodium/ Sodium Chloride (HEPARIN for ARTERIAL LINE FLUSH) 1,000 unit 1X ONCE IV Last administered on 11/14/19at 16:54; Start 11/14/19 at 17:00; Stop 11/14/19 at 17:01; Status DC Levetiracetam 500 mg/Dextrose 105 ml @ 420 mls/hr 1X ONCE IV Last administered on 11/14/19at 22:02; Start 11/14/19 at 22:30; Stop 11/14/19 at 22:44; Status DC Levetiracetam 1000 mg/Dextrose 110 ml @ 440 mls/hr Q12HR IV Last administered on 11/15/19at 08:48; Start 11/15/19 at 09:00 Valproic Acid 1000 mg/Dextrose 60 ml @ 55 mls/hr 1X ONCE IV Last administered on 11/14/19at 23:01; Start 11/14/19 at 23:00; Stop 11/15/19 at 00:05; Status DC Valproic Acid 500 mg/Dextrose 55 ml @ 55 mls/hr Q8HRS IV Last administered on 11/15/19at 14:17; Start 11/15/19 at 06:00 Acetaminophen (Tylenol) 650 mg PRN Q6HRS PRN PEG MILD PAIN / TEMP > 100.3'F Last administered on 11/15/19at 04:33; Start 11/15/19 at 04:15 Cefepime HCl (Maxipime) 1 gm Q8HRS IVP Last administered on 11/15/19at 15:27; Start 11/15/19 at 07:00 Sodium Bicarbonate (Sodium Bicarb Adult 8.4% Syr) 50 meq 1X ONCE IV Last administered on 11/15/19at 10:16; Start 11/15/19 at 10:15; Stop 11/15/19 at 10:16; Status DC Lidocaine HCl (Buffered Lidocaine 1%) 3 ml STK-MED ONCE .ROUTE ; Start 11/15/19 at 12:38; Stop 11/15/19 at 12:38; Status DC Pantoprazole Sodium (PROTONIX VIAL for IV PUSH) 40 mg DAILYAC IVP ; Start 11/16/19 at 07:30 Lidocaine HCl (Buffered Lidocaine 1%) 6 ml 1X ONCE INJ Last administered on 11/15/19at 14:15; Start 11/15/19 at 14:15; Stop 11/15/19 at 14:20; Status DC Active Scripts Active Oxycodone Hcl Immed.release (Oxycodone Hcl) 15 Mg Tablet 15 Mg PO PRN Q6HRS PRN 5 Days Reported Remeron (Mirtazapine) 15 Mg Tablet 1 Tab PO QHS Buspirone Hcl 10 Mg Tablet 1 Tab PO BIDACBL Alprazolam 0.5 Mg Tablet 1 Tab PO HS Acetaminophen 500 Mg Tablet 1 Tab PO PRN Q6HRS PRN 15 Days Ferrous Sulfate 325 Mg Tablet 65 Mg PO BID Pantoprazole Sodium (Pantoprazole Sodium) 40 Mg Tablet.dr 40 Mg PO DAILYAC Trazodone Hcl 50 Mg Tablet 1 Tab PO QHS Gabapentin (Gabapentin) 100 Mg Capsule 100 Mg PO TID Vitals/I & O Vital Sign - Last 24 Hours 11/14/19 11/14/19 11/14/19 11/14/19 17:00 17:13 17:39 17:55 Temp 97.7 98.3 97.7 98.3 Pulse 112 112 106 Resp 22 16 16 B/P (MAP) 112/82 (92) 116/73 116/79 Pulse Ox 99 100 O2 Delivery Ventilator Ventilator 11/14/19 11/14/19 11/14/19 11/14/19 18:00 19:00 20:00 20:00 Temp 98.8 98.8 Pulse 105 103 108 Resp 16 16 20 B/P (MAP) 116/81 (93) 119/81 (94) 96/74 (81) Pulse Ox 98 O2 Delivery Ventilator Ventilator Ventilator Mechanical Ventilator 11/14/19 11/14/19 11/14/19 11/14/19 20:43 20:50 21:00 21:05 Temp 97.9 98.8 97.9 98.8 Pulse 110 108 122 Resp 24 22 21 B/P (MAP) 98/68 103/57 (72) 107/65 Pulse Ox 70 O2 Delivery Ventilator Ventilator 11/14/19 11/14/19 11/14/19 11/15/19 22:00 23:00 23:03 00:00 Pulse 113 126 Resp 22 21 B/P (MAP) 109/61 (77) 106/80 (89) Pulse Ox 100 60 O2 Delivery Ventilator Ventilator Ventilator Mechanical Ventilator 11/15/19 11/15/19 11/15/19 11/15/19 00:00 01:00 02:00 03:00 Temp 99.0 99.0 Pulse 126 128 114 133 Resp 21 21 21 18 B/P (MAP) 101/79 (86) 102/73 (83) 105/74 (84) 99/67 (78) Pulse Ox 100 100 100 100 O2 Delivery Ventilator Ventilator Ventilator Ventilator 11/15/19 11/15/19 11/15/19 11/15/19 04:00 04:00 04:31 05:00 Temp 101.8 101.8 Pulse 142 136 Resp 29 27 B/P (MAP) 108/63 (78) 103/65 (78) Pulse Ox 100 45 100 O2 Delivery Ventilator Mechanical Ventilator Ventilator Ventilator 11/15/19 11/15/19 11/15/19 11/15/19 06:00 07:00 07:24 07:30 Temp 101.3 101.3 Pulse 136 132 134 Resp 26 24 22 B/P (MAP) 81/68 (72) 96/64 (75) 88/62 (71) Pulse Ox 100 100 100 100 O2 Delivery Ventilator Ventilator Ventilator Ventilator 11/15/19 11/15/19 11/15/19 11/15/19 08:00 08:00 08:30 09:00 Pulse 130 132 128 Resp 25 16 23 B/P (MAP) 87/62 (70) 91/63 (72) 94/63 (73) Pulse Ox 100 100 100 O2 Delivery Ventilator Mechanical Ventilator Ventilator Ventilator 11/15/19 11/15/19 11/15/19 11/15/19 09:06 09:30 10:00 10:30 Temp 98.8 98.8 Pulse 128 128 124 Resp 25 22 18 B/P (MAP) 95/63 (74) 94/63 (73) 99/65 (76) Pulse Ox 100 100 100 100 O2 Delivery Ventilator Ventilator Ventilator Ventilator 11/15/19 11/15/19 11/15/19/1/20 10:32 11:00 11:02 11:25 Pulse 126 Resp 22 B/P (MAP) 88/57 (67) Pulse Ox 100 100 100 100 O2 Delivery Ventilator Ventilator 11/15/19 11/15/19 11/15/19 11/15/19 11:30 12:00 12:00 12:30 Temp 98.9 98.9 Pulse 126 126 124 Resp 19 18 20 B/P (MAP) 91/57 (68) 95/59 (71) 99/65 (76) Pulse Ox 100 100 100 O2 Delivery Ventilator Ventilator Mechanical Ventilator Ventilator 11/15/19 11/15/19 11/15/19 11/15/19 13:00 13:40 13:55 14:18 Pulse 124 124 122 Resp 18 24 17 B/P (MAP) 93/63 (73) 107/73 (84) 101/73 (82) Pulse Ox 100 100 100 100 O2 Delivery Ventilator Ventilator Ventilator 11/15/19 11/15/19 11/15/19 11/15/19 15:57 16:00 16:00 16:36 Temp 98.3 98.3 Pulse 122 121 Resp 16 16 B/P (MAP) 103/66 (78) 98/71 (80) Pulse Ox 100 100 100 O2 Delivery Ventilator Ventilator Mechanical Ventilator Ventilator Intake and Output 11/14/19 11/14/19 11/15/19 15:00 23:00 07:00 Intake Total 2750 ml 1049 ml 419.3 ml Output Total 255 ml 465 ml 185 ml Balance 2495 ml 584 ml 234.3 ml Justicifation of Admission Dx: Justifications for Admission: Justification of Admission Dx: Yes Comminuty Aquired Pneumonia: Med-High Risk Pt Sepsis: Infection NACHO WILKERSON MD Nov 15, 2019 16:56
[2019-11-15] MEDS: ALPRAZolam 0.5 MG TABLET PO SCH (21:00)
[2019-11-16] VITALS (23 sets, daily range): BP systolic 86–132; BP diastolic 59–88
[2019-11-16 00:05] LABS: VANC TR 17.6 mcg/mL (10.0-20.0)
[2019-11-16] MEDS: VANCOMYCIN 1.25 GM in IV NORMAL SALINE 250ML 250 ML IV SCH ×3 (00:19→23:42)
[2019-11-16] MEDS: NOREPINEPHRINE VIAL 8 MG in IV DEXTROSE 5% 250 ML IV PRN ×3 (00:21→21:56)
[2019-11-16] MEDS: VANCOMYCIN PER PHARMACY MC PRN ×2 (02:00→10:42)
--- NOTE | 2019-11-16 02:00 | NUR ---
Pharmacy Vancomycin Dosing Note S:Consulted to monitor and dose vancomycin started 11/14/19. O:CHRISTOPHER NEWSOME is a 49 year old M with Sepsis LEUKOCYTOSIS . Height: 5 feet, 9 inches Weight: 76.7 kg [place] Body Weight: 70.70 Adjusted Body Weight: 73.10 Dosing Weight: Actual Other Antibiotics: MYCAMINE, FLAGYL, VANCOM PO LABS: Last BUN: 16 Last Creatinine: 1.5 Creatinine Clearance: 61 mL/min Last WBC: 62.1 Last Procalcitonin: 0.7 Tmax (past 24 hours): 98.7 Microbiology: I/O: 4218/905 Drug Levels: Last Trough level: 17.6 on 11/15/19 at 2330 Last dose given 11/14/19 at 1200 Vancomycin Dosing: Loading Dose: 2000 mg x1 Dosing Weight: Actual Target Trough: 15-20 A: Based on: TROUGH P: 1. Continue Vancomycin 1250 mg IV q12h 2. Follow up Trough level IF NEEDED 3. Pharmacy will continue to monitor, follow and adjust therapy as needed. AMY MANUEL RPH, 11/16/19 0200 Signed: 11/16/19 at 0200 by AMY MANUEL RPH PHA
[2019-11-16] MEDS: VALPROIC ACID (AS SODIUM SALT) 500 MG in IV DEXTROSE 5% 50 ML IV SCH ×4 (05:38→22:02)
[2019-11-16] MEDS: CEFEPIME HCL IV Push 1 GM VIAL. IVP SCH ×3 (05:38→21:43)
[2019-11-16 06:33] LABS: CALCIUM 6.6 mg/dL (8.5-10.1); CREATININE 1.3 mg/dL (0.7-1.3); POTASSIUM 4.3 mmol/L (3.5-5.1)
[2019-11-16 06:58] LABS: BASO # 0.1 x10^3/uL (0.0-0.2); BASO % 0 % (0-3); EOS % 0 % (0-3); HEMOGLOBIN 7.4 g/dL (13.0-17.5); LYMPH # 0.7 x10^3/uL (1.0-4.8); LYMPH % 2 % (24-48); MEAN CORPUSCULAR HEMOGLOBIN 27 pg (25-35); MEAN CORPUSCULAR HGB CONC 32 g/dL (31-37); MEAN CORPUSCULAR VOLUME 83 fL (79-100); MONO # 1.8 x10^3/uL (0.0-1.1); MONO % 4 % (0-9); NEUT % 94 % (31-73); PLATELET COUNT 215 x10^3/uL (140-400); RED BLOOD COUNT 2.76 x10^6/uL (4.30-5.70); RED CELL DISTRIBUTION WIDTH 19.5 % (11.5-14.5)
--- NOTE | 2019-11-16 07:20 | PDOC ---
Infectious Disease Note Subjective Subjective Events noted. Per nursing he called to go to bathroom and when aid went in he was on floor face down unresponsive was breathing . 02 sat 42. Bagging. Code cart rate 40 - 50 then down to 30s then no pulse. Three rounds CPR/Intubated IO place RLE. R Ej placed Intubated Vital Sign Vital Signs Vital Signs Date Time Temp Pulse Resp B/P (MAP) Pulse Ox O2 Delivery O2 Flow Rate FiO2 11/16/19 06:00 112 18 95/63 (74) 100 Ventilator 11/16/19 04:00 98.6 98.6 Physical Exam PHYSICAL EXAM GENERAL: Thin, cachectic male Intubated HEENT: Norm conj. ETT NECK: Supple, no lymphadenopathy. LUNGS: Decreased breath sounds at the bases, increased Resp rate HEART: S1, S2. tachy ABDOMEN: Distended, soft, nontender, fistula in place - bloody drainage, GJ tube in place. - [place] with 3 plus edema EXTREMITIES: Edema, no cyanosis.RLE IO - old site clean DERMATOLOGIC: Warm, dry. 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 NEUROLOGIC: unable to assess PSYCHIATRIC: Unable to assess DERMATOLOGIC: No generalized rash RIJ - clean. Labs Lab Laboratory Tests Test 11/15/19 08:55 11/15/19 23:35 11/16/19 05:50 O2 Saturation 98 % (92-99) Arterial Blood pH 7.43 (7.35-7.45) Arterial Blood pH (Temp corrected) 7.41 Arterial Blood pCO2 at Patient Temp 23 mmHg (35-46) Arterial Blood pCO2 (Temp correct) 25 mmHg Arterial Blood pO2 at Patient Temp 140 mmHg (75-108) Arterial Blood pO2 (Temp corrected) 149 mmHg Arterial Blood HCO3 15 mmol/L (21-28) Arterial Blood Base Excess -8 mmol/L (-3-3) FiO2 45% vent Vancomycin Level Trough 17.6 mcg/mL (10.0-20.0) Vancomycin Last Dose Date Vancomycin Last Dose Time 1200 Sodium Level 134 mmol/L (136-145) Potassium Level 4.3 mmol/L (3.5-5.1) Chloride Level 103 mmol/L (98-107) Carbon Dioxide Level 25 mmol/L (21-32) Anion Gap 6 (6-14) Blood Urea Nitrogen 17 mg/dL (8-26) Creatinine 1.3 mg/dL (0.7-1.3) Estimated GFR (Cockcroft-Gault) 71.0 Glucose Level 110 mg/dL (70-99) Calcium Level 6.6 mg/dL (8.5-10.1) Micro Preliminary MODERATE FINAL ID= [CITROBACTER FREUNDI] MODERATE FINAL ID= [KLEBSIELLA OXYTOCA] CITROBACTER FREUNDI KLEBSIELLA OXYTOCA RAOULTELLA KLEBSIELLA OXYTOCA Unless otherwise specified, Testing Performed by: [facility] [address] [place] [address] For Inquires, the Physician may contact the Microbiology department at [phone] CT abd 11/13 IMPRESSION: 1. Gas containing fluid collection replacing the pancreas, with an intact of gas extending to the skin surface in the right upper quadrant abdomen. Findings suspicious for an abscess either related to pancreatic necrosis or complication of pancreatectomy. Correlate clinically. 2. Moderate amount of ascites and mesenteric edema with abdominal distention and severe hepatic steatosis. Correlate clinically for any evidence of hypoperfusion injury or ischemia. 3. Foci of gas in the left upper quadrant abdomen are new in the presence of a percutaneous gastrostomy tube. Correlate for any history of recent instrumentation. A contained bowel perforation can yield this appearance. CT head 11/13 IMPRESSION: No acute intracranial pathology. In particular, no evidence of acute intracranial hemorrhage IMPRESSION: No pulmonary embolism. Small bilateral pleural effusions. This is new on the right side. This was seen previously on the left side but has increased. There is loculated pleural fluid within the left major fissure. There is associated compressive atelectasis or infiltrate within the left lower lobe which has not improved from October 22, 2019. Given posterior retraction of the major fissure on the left side, this is indicative of volume loss more typical of atelectasis but certainly underlying pneumonia may be present as well. Microbiology 11/08/19 Blood Culture - Preliminary, Resulted NO GROWTH AFTER 2 DAYS 11/07/19 Urine Culture - Final, Complete Objective Assessment Fever - better? PRBCs/seizures GNR bactermia 11/13 ID pend. Changed to Cefepime 11/14 with seizure 11/13 S/p IR abd drain 11/14 Kleb and Citrobacteri in sputum - sen pend Leukocytosis - seizures/abn CT scan/PRBCs - better today S/p Seizures 11/13 Elevated Troponin S/p IVC (actually in iliac) 11/13 Acute hypoxic resp failure intubated PEA Gj tube replaced 11/12 ? Loculated LL effusion on CT 11/12 Leukocytosis ? reactive 1. Bilateral lower extremity deep venous thrombosis 11/06 2. Clostridium difficile colitis 10/22 3. Leukocytosis with bandemia- better off abx 4. Left basilar pleural effusion and consolidation, chronic. 5. History of severe pancreatitis, status post exploratory laparotomy with pancreatic necrosectomy, cholecystotomy tube placement, gastrostomy tube placement, tracheostomy placement, five drains. Ascitic fluid drained status post tracheostomy recovered, history of hepatitis B during last admission in 07/2019. 6. Severe protein malnutrition Plan Plan of Care On Levophed - same Blood and sputum cults - pending 11/13 Began IV Flagyl/Vanc/Meropenem/Micafungin 11/13 Given seizure will d/c Meropenem and begin Cefepime 11/14 - cautious with dosing with seizure F/u labs/cults Await Gen surg f/u D/w nursing Critically ill [phone] LE Dickinson MD Nov 16, 2019 07:20
[2019-11-16 07:22] LABS: WHITE BLOOD COUNT 45.6 x10^3/uL (4.0-11.0)
[2019-11-16] MEDS ORDERED: PANTOPRAZOLE IV PUSH 40 MG VIAL. IVP SCH (07:30)
[2019-11-16] MEDS: VANCOMYCIN 125 MG/2.5 ML ORAL SOLUTION. PO SCH ×4 (07:58→21:43)
[2019-11-16] MEDS: LACTOBACILLUS RHAMNOSUS GG 1 CAPSULE. PO SCH ×2 (07:58→21:45)
[2019-11-16] MEDS: FERROUS SULFATE 325 MG TABLET. PO SCH ×2 (07:58→17:41)
[2019-11-16] MEDS: MICAFUNGIN 100 MG in IV DEXTROSE 5% 100ML 100 ML IV SCH (08:00)
[2019-11-16 08:26] LABS: BASE EXCESS ABG 0 mmol/L (-3-3); HCO3 ABG 24 mmol/L (21-28); PCO2 ABG 32 mmHg (35-46); PO2 ABG 115 mmHg (75-108); SAT O2 ABG 97 % (92-99)
[2019-11-16 08:28] LABS: FIO2 ABG 40% VENT
--- NOTE | 2019-11-16 11:55 | PDOC ---
G I PROGRESS NOTE Subjective Remains unresponsive. Has had some bloody stools. OG bilious. Objective No further seizures per staff. Physical Exam Lungs clear. RRR Abdomen distended. Serosanguinous output from Left abdominal drain. Silent. Review of Relevant I have reviewed the following items alexandra (where applicable) has been applied. Labs Laboratory Tests Test 11/14/19 13:55 11/14/19 17:53 11/14/19 23:15 11/15/19 06:15 White Blood Count 37.1 x10^3/uL (4.0-11.0) 48.7 x10^3/uL (4.0-11.0) 62.1 x10^3/uL (4.0-11.0) Red Blood Count 2.41 x10^6/uL (4.30-5.70) 3.52 x10^6/uL (4.30-5.70) 3.25 x10^6/uL (4.30-5.70) Hemoglobin 6.4 g/dL (13.0-17.5) 9.5 g/dL (13.0-17.5) 8.9 g/dL (13.0-17.5) Hematocrit 20.4 % (39.0-53.0) 29.6 % (39.0-53.0) 27.8 % (39.0-53.0) Mean Corpuscular Volume 85 fL (79-100) 84 fL (79-100) 86 fL (79-100) Mean Corpuscular Hemoglobin 26 pg (25-35) 27 pg (25-35) 27 pg (25-35) Mean Corpuscular Hemoglobin Concent 31 g/dL (31-37) 32 g/dL (31-37) 32 g/dL (31-37) Red Cell Distribution Width 20.5 % (11.5-14.5) 19.0 % (11.5-14.5) 19.3 % (11.5-14.5) Platelet Count 463 x10^3/uL (140-400) 408 x10^3/uL (140-400) 279 x10^3/uL (140-400) Neutrophils (%) (Auto) 96 % (31-73) 97 % (31-73) Lymphocytes (%) (Auto) 1 % (24-48) 1 % (24-48) Monocytes (%) (Auto) 3 % (0-9) 2 % (0-9) Eosinophils (%) (Auto) 0 % (0-3) 0 % (0-3) Basophils (%) (Auto) 0 % (0-3) 0 % (0-3) Neutrophils # (Auto) 35.4 x10^3/uL (1.8-7.7) 60.3 x10^3/uL (1.8-7.7) Lymphocytes # (Auto) 0.4 x10^3/uL (1.0-4.8) 0.5 x10^3/uL (1.0-4.8) Monocytes # (Auto) 1.1 x10^3/uL (0.0-1.1) 1.3 x10^3/uL (0.0-1.1) Eosinophils # (Auto) 0.0 x10^3/uL (0.0-0.7) 0.0 x10^3/uL (0.0-0.7) Basophils # (Auto) 0.1 x10^3/uL (0.0-0.2) 0.1 x10^3/uL (0.0-0.2) Sodium Level 134 mmol/L (136-145) 133 mmol/L (136-145) Potassium Level 3.7 mmol/L (3.5-5.1) 4.3 mmol/L (3.5-5.1) Chloride Level 103 mmol/L (98-107) 102 mmol/L (98-107) Carbon Dioxide Level 25 mmol/L (21-32) 21 mmol/L (21-32) Anion Gap 6 (6-14) 10 (6-14) Blood Urea Nitrogen 14 mg/dL (8-26) 16 mg/dL (8-26) Creatinine 1.1 mg/dL (0.7-1.3) 1.5 mg/dL (0.7-1.3) Estimated GFR (Cockcroft-Gault) 86.1 60.2 BUN/Creatinine Ratio 13 (6-20) Glucose Level 123 mg/dL (70-99) 80 mg/dL (70-99) Lactic Acid Level 3.9 mmol/L (0.4-2.0) Calcium Level 6.7 mg/dL (8.5-10.1) 6.8 mg/dL (8.5-10.1) Total Bilirubin 1.0 mg/dL (0.2-1.0) Aspartate Amino Transf (AST/SGOT) 57 U/L (15-37) Alanine Aminotransferase (ALT/SGPT) 46 U/L (16-63) Alkaline Phosphatase 451 U/L (46-116) Troponin I Quantitative 2.220 ng/mL (0.000-0.055) Total Protein 4.8 g/dL (6.4-8.2) Albumin 0.8 g/dL (3.4-5.0) Albumin/Globulin Ratio 0.2 (1.0-1.7) Glucose (Fingerstick) 101 mg/dL (70-99) Segmented Neutrophils % 40 % (35-66) Band Neutrophils % 54 % (0-9) Monocytes % 2 % (0-10) Metamyelocytes % 4 % (0-0) Nucleated Red Blood Cells 1 Toxic Granulation Present Dohle Bodies Present Platelet Estimate Adequate (ADEQUATE) Anisocytosis Slight Test 11/15/19 08:55 11/15/19 23:35 11/16/19 05:50 11/16/19 08:00 O2 Saturation 98 % (92-99) 97 % (92-99) Arterial Blood pH 7.43 (7.35-7.45) 7.49 (7.35-7.45) Arterial Blood pH (Temp corrected) 7.41 Arterial Blood pCO2 at Patient Temp 23 mmHg (35-46) 32 mmHg (35-46) Arterial Blood pCO2 (Temp correct) 25 mmHg Arterial Blood pO2 at Patient Temp 140 mmHg (75-108) 115 mmHg (75-108) Arterial Blood pO2 (Temp corrected) 149 mmHg Arterial Blood HCO3 15 mmol/L (21-28) 24 mmol/L (21-28) Arterial Blood Base Excess -8 mmol/L (-3-3) 0 mmol/L (-3-3) FiO2 45% vent 40% vent Vancomycin Level Trough 17.6 mcg/mL (10.0-20.0) Vancomycin Last Dose Date Vancomycin Last Dose Time 1200 White Blood Count 45.6 x10^3/uL (4.0-11.0) Red Blood Count 2.76 x10^6/uL (4.30-5.70) Hemoglobin 7.4 g/dL (13.0-17.5) Hematocrit 23.0 % (39.0-53.0) Mean Corpuscular Volume 83 fL (79-100) Mean Corpuscular Hemoglobin 27 pg (25-35) Mean Corpuscular Hemoglobin Concent 32 g/dL (31-37) Red Cell Distribution Width 19.5 % (11.5-14.5) Platelet Count 215 x10^3/uL (140-400) Neutrophils (%) (Auto) 94 % (31-73) Lymphocytes (%) (Auto) 2 % (24-48) Monocytes (%) (Auto) 4 % (0-9) Eosinophils (%) (Auto) 0 % (0-3) Basophils (%) (Auto) 0 % (0-3) Neutrophils # (Auto) 43.0 x10^3/uL (1.8-7.7) Lymphocytes # (Auto) 0.7 x10^3/uL (1.0-4.8) Monocytes # (Auto) 1.8 x10^3/uL (0.0-1.1) Eosinophils # (Auto) 0.0 x10^3/uL (0.0-0.7) Basophils # (Auto) 0.1 x10^3/uL (0.0-0.2) Sodium Level 134 mmol/L (136-145) Potassium Level 4.3 mmol/L (3.5-5.1) Chloride Level 103 mmol/L (98-107) Carbon Dioxide Level 25 mmol/L (21-32) Anion Gap 6 (6-14) Blood Urea Nitrogen 17 mg/dL (8-26) Creatinine 1.3 mg/dL (0.7-1.3) Estimated GFR (Cockcroft-Gault) 71.0 Glucose Level 110 mg/dL (70-99) Calcium Level 6.6 mg/dL (8.5-10.1) Laboratory Tests Test 11/15/19 23:35 11/16/19 05:50 11/16/19 08:00 Vancomycin Level Trough 17.6 mcg/mL (10.0-20.0) Vancomycin Last Dose Date Vancomycin Last Dose Time 1200 White Blood Count 45.6 x10^3/uL (4.0-11.0) Red Blood Count 2.76 x10^6/uL (4.30-5.70) Hemoglobin 7.4 g/dL (13.0-17.5) Hematocrit 23.0 % (39.0-53.0) Mean Corpuscular Volume 83 fL (79-100) Mean Corpuscular Hemoglobin 27 pg (25-35) Mean Corpuscular Hemoglobin Concent 32 g/dL (31-37) Red Cell Distribution Width 19.5 % (11.5-14.5) Platelet Count 215 x10^3/uL (140-400) Neutrophils (%) (Auto) 94 % (31-73) Lymphocytes (%) (Auto) 2 % (24-48) Monocytes (%) (Auto) 4 % (0-9) Eosinophils (%) (Auto) 0 % (0-3) Basophils (%) (Auto) 0 % (0-3) Neutrophils # (Auto) 43.0 x10^3/uL (1.8-7.7) Lymphocytes # (Auto) 0.7 x10^3/uL (1.0-4.8) Monocytes # (Auto) 1.8 x10^3/uL (0.0-1.1) Eosinophils # (Auto) 0.0 x10^3/uL (0.0-0.7) Basophils # (Auto) 0.1 x10^3/uL (0.0-0.2) Sodium Level 134 mmol/L (136-145) Potassium Level 4.3 mmol/L (3.5-5.1) Chloride Level 103 mmol/L (98-107) Carbon Dioxide Level 25 mmol/L (21-32) Anion Gap 6 (6-14) Blood Urea Nitrogen 17 mg/dL (8-26) Creatinine 1.3 mg/dL (0.7-1.3) Estimated GFR (Cockcroft-Gault) 71.0 Glucose Level 110 mg/dL (70-99) Calcium Level 6.6 mg/dL (8.5-10.1) O2 Saturation 97 % (92-99) Arterial Blood pH 7.49 (7.35-7.45) Arterial Blood pCO2 at Patient Temp 32 mmHg (35-46) Arterial Blood pO2 at Patient Temp 115 mmHg (75-108) Arterial Blood HCO3 24 mmol/L (21-28) Arterial Blood Base Excess 0 mmol/L (-3-3) FiO2 40% vent Microbiology 11/14/19 Blood Culture - Preliminary, Resulted NO GROWTH AFTER 1 DAY 11/14/19 Gram Stain Evaluation - Final, Resulted 11/14/19 Respiratory Culture - Preliminary, Resulted 11/07/19 Urine Culture - Final, Complete White count down some. Platelets OK. Drop in hemoglobin. Studies from pseudocyst pending. Gram negatives in blood. Vitals/I & O Vital Sign - Last 24 Hours 11/15/19 11/15/19 11/15/19 11/15/19 12:00 12:00 12:30 13:00 Temp 98.9 98.9 Pulse 126 124 124 Resp 18 20 18 B/P (MAP) 95/59 (71) 99/65 (76) 93/63 (73) Pulse Ox 100 100 100 O2 Delivery Ventilator Mechanical Ventilator Ventilator Ventilator 11/15/19 11/15/19 11/15/19 11/15/19 13:40 13:55 14:18 15:57 Pulse 124 122 Resp 24 17 B/P (MAP) 107/73 (84) 101/73 (82) Pulse Ox 100 100 100 100 O2 Delivery Ventilator Ventilator Ventilator 11/15/19 11/15/19 11/15/19 11/15/19 16:00 16:00 16:36 17:00 Temp 98.3 98.3 Pulse 122 121 120 Resp 16 16 16 B/P (MAP) 103/66 (78) 98/71 (80) 97/68 (78) Pulse Ox 100 100 100 O2 Delivery Ventilator Mechanical Ventilator Ventilator Ventilator 11/15/19 11/15/19 11/15/19 11/15/19 17:30 17:46 18:00 18:30 Pulse 122 118 120 Resp 16 18 18 B/P (MAP) 96/68 (77) 80/62 (68) 90/68 (75) Pulse Ox 100 100 100 100 O2 Delivery Ventilator Ventilator Ventilator Ventilator 11/15/19 11/15/19 11/15/19 11/15/19 19:00 19:58 20:00 20:00 Temp 98.7 98.7 Pulse 122 124 Resp 18 18 B/P (MAP) 95/65 (75) 102/69 (80) Pulse Ox 100 100 100 O2 Delivery Ventilator Ventilator Ventilator Mechanical Ventilator 11/15/19 11/15/19 11/15/19 11/15/19 21:00 22:00 22:39 23:00 Pulse 121 120 121 Resp 18 19 19 B/P (MAP) 105/76 (86) 105/76 (86) 102/69 (80) Pulse Ox 100 100 100 100 O2 Delivery Ventilator Ventilator Ventilator Ventilator 11/16/19 11/16/19 11/16/19 11/16/19 00:00 00:00 01:00 01:10 Temp 99.5 99.5 Pulse 120 117 Resp 19 17 B/P (MAP) 103/69 (80) 90/66 (74) Pulse Ox 100 100 100 O2 Delivery Ventilator Mechanical Ventilator Ventilator Ventilator 11/16/19 11/16/19 11/16/19 11/16/19 02:00 03:00 03:34 04:00 Temp 98.6 98.6 Pulse 116 115 111 Resp 17 17 17 B/P (MAP) 95/59 (71) 86/65 (72) 96/62 (73) Pulse Ox 100 100 100 100 O2 Delivery Ventilator Ventilator Ventilator Ventilator 11/16/19 11/16/19 11/16/19 11/16/19 04:00 05:00 05:10 06:00 Pulse 113 112 Resp 18 18 B/P (MAP) 99/67 (78) 95/63 (74) Pulse Ox 100 100 100 O2 Delivery Mechanical Ventilator Ventilator Ventilator Ventilator 11/16/19 11/16/19 07:23 09:44 Pulse Ox 100 100 O2 Delivery Ventilator Ventilator Intake and Output 11/15/19 11/15/19 11/16/19 15:00 23:00 07:00 Intake Total 0 ml 0 ml 404.7 ml Output Total 80 ml 310 ml 595 ml Balance -80 ml -310 ml -190.3 ml Assessment Pseudocyst, post-drainage. Post-arrest. No return of higher functions. Likely ischemic colitis to account for the rectal bleeding. Plan of Care Note Continue support. Await studies on pseudocyst fluid. Justicifation of Admission Dx: Justifications for Admission: Justification of Admission Dx: Yes Comminuty Aquired Pneumonia: Med-High Risk Pt Sepsis: Infection MARIA L CRUZ MD Nov 16, 2019 11:55
--- NOTE | 2019-11-16 12:01 | PDOC ---
PULMONARY PROGRESS NOTES Subjective S/P cardiac arrest with 3 rounds of CPR and EPI/ bicarb 11/13, intubated, small ett secretion, sedated on fentanyl, has bloody stool. on levo Vitals Vital Signs Date Time Temp Pulse Resp B/P (MAP) Pulse Ox O2 Delivery O2 Flow Rate FiO2 11/16/19 09:44 100 Ventilator 11/16/19 06:00 112 18 95/63 (74) 11/16/19 04:00 98.6 98.6 Comments unable to obtain intubated HEENT: Other (nc at perrl nose clear orally intubated neck no lad no thyromegaly) Lungs: Other (decreased BLL) Cardiovascular: S1, S2 Abdomen: Other (less distended doft deminished bs) Extremities: Other (+ edema) Skin: Warm Labs Laboratory Tests Test 11/14/19 13:55 11/14/19 17:53 11/14/19 23:15 11/15/19 06:15 White Blood Count 37.1 x10^3/uL (4.0-11.0) 48.7 x10^3/uL (4.0-11.0) 62.1 x10^3/uL (4.0-11.0) Red Blood Count 2.41 x10^6/uL (4.30-5.70) 3.52 x10^6/uL (4.30-5.70) 3.25 x10^6/uL (4.30-5.70) Hemoglobin 6.4 g/dL (13.0-17.5) 9.5 g/dL (13.0-17.5) 8.9 g/dL (13.0-17.5) Hematocrit 20.4 % (39.0-53.0) 29.6 % (39.0-53.0) 27.8 % (39.0-53.0) Mean Corpuscular Volume 85 fL (79-100) 84 fL (79-100) 86 fL (79-100) Mean Corpuscular Hemoglobin 26 pg (25-35) 27 pg (25-35) 27 pg (25-35) Mean Corpuscular Hemoglobin Concent 31 g/dL (31-37) 32 g/dL (31-37) 32 g/dL (31-37) Red Cell Distribution Width 20.5 % (11.5-14.5) 19.0 % (11.5-14.5) 19.3 % (11.5-14.5) Platelet Count 463 x10^3/uL (140-400) 408 x10^3/uL (140-400) 279 x10^3/uL (140-400) Neutrophils (%) (Auto) 96 % (31-73) 97 % (31-73) Lymphocytes (%) (Auto) 1 % (24-48) 1 % (24-48) Monocytes (%) (Auto) 3 % (0-9) 2 % (0-9) Eosinophils (%) (Auto) 0 % (0-3) 0 % (0-3) Basophils (%) (Auto) 0 % (0-3) 0 % (0-3) Neutrophils # (Auto) 35.4 x10^3/uL (1.8-7.7) 60.3 x10^3/uL (1.8-7.7) Lymphocytes # (Auto) 0.4 x10^3/uL (1.0-4.8) 0.5 x10^3/uL (1.0-4.8) Monocytes # (Auto) 1.1 x10^3/uL (0.0-1.1) 1.3 x10^3/uL (0.0-1.1) Eosinophils # (Auto) 0.0 x10^3/uL (0.0-0.7) 0.0 x10^3/uL (0.0-0.7) Basophils # (Auto) 0.1 x10^3/uL (0.0-0.2) 0.1 x10^3/uL (0.0-0.2) Sodium Level 134 mmol/L (136-145) 133 mmol/L (136-145) Potassium Level 3.7 mmol/L (3.5-5.1) 4.3 mmol/L (3.5-5.1) Chloride Level 103 mmol/L (98-107) 102 mmol/L (98-107) Carbon Dioxide Level 25 mmol/L (21-32) 21 mmol/L (21-32) Anion Gap 6 (6-14) 10 (6-14) Blood Urea Nitrogen 14 mg/dL (8-26) 16 mg/dL (8-26) Creatinine 1.1 mg/dL (0.7-1.3) 1.5 mg/dL (0.7-1.3) Estimated GFR (Cockcroft-Gault) 86.1 60.2 BUN/Creatinine Ratio 13 (6-20) Glucose Level 123 mg/dL (70-99) 80 mg/dL (70-99) Lactic Acid Level 3.9 mmol/L (0.4-2.0) Calcium Level 6.7 mg/dL (8.5-10.1) 6.8 mg/dL (8.5-10.1) Total Bilirubin 1.0 mg/dL (0.2-1.0) Aspartate Amino Transf (AST/SGOT) 57 U/L (15-37) Alanine Aminotransferase (ALT/SGPT) 46 U/L (16-63) Alkaline Phosphatase 451 U/L (46-116) Troponin I Quantitative 2.220 ng/mL (0.000-0.055) Total Protein 4.8 g/dL (6.4-8.2) Albumin 0.8 g/dL (3.4-5.0) Albumin/Globulin Ratio 0.2 (1.0-1.7) Glucose (Fingerstick) 101 mg/dL (70-99) Segmented Neutrophils % 40 % (35-66) Band Neutrophils % 54 % (0-9) Monocytes % 2 % (0-10) Metamyelocytes % 4 % (0-0) Nucleated Red Blood Cells 1 Toxic Granulation Present Dohle Bodies Present Platelet Estimate Adequate (ADEQUATE) Anisocytosis Slight Test 11/15/19 08:55 11/15/19 23:35 11/16/19 05:50 11/16/19 08:00 O2 Saturation 98 % (92-99) 97 % (92-99) Arterial Blood pH 7.43 (7.35-7.45) 7.49 (7.35-7.45) Arterial Blood pH (Temp corrected) 7.41 Arterial Blood pCO2 at Patient Temp 23 mmHg (35-46) 32 mmHg (35-46) Arterial Blood pCO2 (Temp correct) 25 mmHg Arterial Blood pO2 at Patient Temp 140 mmHg (75-108) 115 mmHg (75-108) Arterial Blood pO2 (Temp corrected) 149 mmHg Arterial Blood HCO3 15 mmol/L (21-28) 24 mmol/L (21-28) Arterial Blood Base Excess -8 mmol/L (-3-3) 0 mmol/L (-3-3) FiO2 45% vent 40% vent Vancomycin Level Trough 17.6 mcg/mL (10.0-20.0) Vancomycin Last Dose Date Vancomycin Last Dose Time 1200 White Blood Count 45.6 x10^3/uL (4.0-11.0) Red Blood Count 2.76 x10^6/uL (4.30-5.70) Hemoglobin 7.4 g/dL (13.0-17.5) Hematocrit 23.0 % (39.0-53.0) Mean Corpuscular Volume 83 fL (79-100) Mean Corpuscular Hemoglobin 27 pg (25-35) Mean Corpuscular Hemoglobin Concent 32 g/dL (31-37) Red Cell Distribution Width 19.5 % (11.5-14.5) Platelet Count 215 x10^3/uL (140-400) Neutrophils (%) (Auto) 94 % (31-73) Lymphocytes (%) (Auto) 2 % (24-48) Monocytes (%) (Auto) 4 % (0-9) Eosinophils (%) (Auto) 0 % (0-3) Basophils (%) (Auto) 0 % (0-3) Neutrophils # (Auto) 43.0 x10^3/uL (1.8-7.7) Lymphocytes # (Auto) 0.7 x10^3/uL (1.0-4.8) Monocytes # (Auto) 1.8 x10^3/uL (0.0-1.1) Eosinophils # (Auto) 0.0 x10^3/uL (0.0-0.7) Basophils # (Auto) 0.1 x10^3/uL (0.0-0.2) Sodium Level 134 mmol/L (136-145) Potassium Level 4.3 mmol/L (3.5-5.1) Chloride Level 103 mmol/L (98-107) Carbon Dioxide Level 25 mmol/L (21-32) Anion Gap 6 (6-14) Blood Urea Nitrogen 17 mg/dL (8-26) Creatinine 1.3 mg/dL (0.7-1.3) Estimated GFR (Cockcroft-Gault) 71.0 Glucose Level 110 mg/dL (70-99) Calcium Level 6.6 mg/dL (8.5-10.1) Laboratory Tests Test 11/15/19 23:35 11/16/19 05:50 11/16/19 08:00 Vancomycin Level Trough 17.6 mcg/mL (10.0-20.0) Vancomycin Last Dose Date Vancomycin Last Dose Time 1200 White Blood Count 45.6 x10^3/uL (4.0-11.0) Red Blood Count 2.76 x10^6/uL (4.30-5.70) Hemoglobin 7.4 g/dL (13.0-17.5) Hematocrit 23.0 % (39.0-53.0) Mean Corpuscular Volume 83 fL (79-100) Mean Corpuscular Hemoglobin 27 pg (25-35) Mean Corpuscular Hemoglobin Concent 32 g/dL (31-37) Red Cell Distribution Width 19.5 % (11.5-14.5) Platelet Count 215 x10^3/uL (140-400) Neutrophils (%) (Auto) 94 % (31-73) Lymphocytes (%) (Auto) 2 % (24-48) Monocytes (%) (Auto) 4 % (0-9) Eosinophils (%) (Auto) 0 % (0-3) Basophils (%) (Auto) 0 % (0-3) Neutrophils # (Auto) 43.0 x10^3/uL (1.8-7.7) Lymphocytes # (Auto) 0.7 x10^3/uL (1.0-4.8) Monocytes # (Auto) 1.8 x10^3/uL (0.0-1.1) Eosinophils # (Auto) 0.0 x10^3/uL (0.0-0.7) Basophils # (Auto) 0.1 x10^3/uL (0.0-0.2) Sodium Level 134 mmol/L (136-145) Potassium Level 4.3 mmol/L (3.5-5.1) Chloride Level 103 mmol/L (98-107) Carbon Dioxide Level 25 mmol/L (21-32) Anion Gap 6 (6-14) Blood Urea Nitrogen 17 mg/dL (8-26) Creatinine 1.3 mg/dL (0.7-1.3) Estimated GFR (Cockcroft-Gault) 71.0 Glucose Level 110 mg/dL (70-99) Calcium Level 6.6 mg/dL (8.5-10.1) O2 Saturation 97 % (92-99) Arterial Blood pH 7.49 (7.35-7.45) Arterial Blood pCO2 at Patient Temp 32 mmHg (35-46) Arterial Blood pO2 at Patient Temp 115 mmHg (75-108) Arterial Blood HCO3 24 mmol/L (21-28) Arterial Blood Base Excess 0 mmol/L (-3-3) FiO2 40% vent Medications Active Scripts Medications Dose Route/Sig Max Daily Dose Days Date Category Remeron (Mirtazapine) 15 Mg Tablet 1 Tab PO QHS 11/01/19 Reported Oxycodone Hcl Immed.release (Oxycodone Hcl) 15 Mg Tablet 15 Mg PO PRN Q6HRS PRN 5 10/31/19 Rx Buspirone Hcl 10 Mg Tablet 1 Tab PO BIDACBL 10/21/19 Reported Alprazolam 0.5 Mg Tablet 1 Tab PO HS 10/16/19 Reported Acetaminophen 500 Mg Tablet 1 Tab PO PRN Q6HRS PRN 15 10/16/19 Reported Ferrous Sulfate 325 Mg Tablet 65 Mg PO BID 10/16/19 Reported Pantoprazole Sodium (Pantoprazole Sodium) 40 Mg Tablet.dr 40 Mg PO DAILYAC 08/15/19 Reported Trazodone Hcl 50 Mg Tablet 1 Tab PO QHS 08/15/19 Reported Gabapentin (Gabapentin) 100 Mg Capsule 100 Mg PO TID 08/15/[address] of abd and pelvis 1. Gas containing fluid collection replacing the pancreas, with an intact of gas extending to the skin surface in the right upper quadrant abdomen. Findings suspicious for an abscess either related to pancreatic necrosis or complication of pancreatectomy. Correlate clinically. 2. Moderate amount of ascites and mesenteric edema with abdominal distention and severe hepatic steatosis. Correlate clinically for any evidence of hypoperfusion injury or ischemia. 3. Foci of gas in the left upper quadrant abdomen are new in the presence of a percutaneous gastrostomy tube. Correlate for any history of recent instrumentation. A contained bowel perforation can yield this appearance. echo reviewed There is moderate concentric left ventricular hypertrophy. The left ventricular systolic function is normal and the ejection fraction is within normal range. The Ejection Fraction is 60-65%. There is normal LV segmental wall motion. The right ventricle is mildly to moderately dilated. Impression . IMPRESSION: 1.Acute Hypoxic respiratory Failure 2/2 cardiac arrest-- now requiring mechanical ventilation 2.S/P Cardiac arrest, pe septic shock, pancreatic bed adscess, ? Narcotics contribution 3.Lower extremity edema secondary to lower extremity deep venous thrombosis with no evidence of pulmonary embolism. Risk factor for deep venous thrombosis is immobilization. 4. The patient with gallstone pancreatitis in May. He is status post exploratory laparotomy with pancreatic necrosectomy, history of gastrostomy tube placement. septic shock on pressors 5. History of respiratory failure, status post tracheostomy and subsequent decannulation. 6. History of hepatitis B. 7. History of renal failure, on hemodialysis in the past and subsequently renal function with return back to normal. 8. Clostridium difficile colitis. 9. Pancreatic Bed Abscess, GI and Surgery following. 10. leukocytosis 11. CT with LLL mass like density related to fluid collection/ pseudo tumor Plan . RECOMMENDATIONS: continue current vent support, setting reviewed, ABG reviewed, decrease vt to 450 cc s/p drain for Pancreatic Bed Abscess 0n 11/14 ECHO reviewed and consult to cardiology follow recs ABX per ID follow surgery recs-- S/P J-tube placement with IR on 11/12 Monitor HGB, s/p prbc 2 unints on 11/13, transfuse as needed for HGb less than 7 Vasopressors to keep MAP greater than 60 Patient with GI bleed . Hb 6.4. heparin dced. s/p IVC filter 11/13. GI PPX, increase protonix to bid, has hematochezia Discussed with RN and RT discussed w his daughter Total critical care time 30 minutes coordinating care and reviewing diagnostics no overlap critically ill CHRIS TINOCO MD Nov 16, 2019 12:01
[2019-11-16] MEDS: levETIRAcetam 1,000 MG in IV DEXTROSE 5% 100ML 100 ML IV SCH ×2 (12:04→21:45)
--- NOTE | 2019-11-16 12:05 | PDOC ---
[facility] PROGRESS NOTE Chief Complaint Chief Complaint Acute Hypoxic respiratory Failure 2/2 cardiac arrest-- now requiring mechanical ventilation S/P Cardiac arrest unknown etiology, possible seizure Acute GI bleed, unknown source suspect C. difficile colitis possible ischemic colitis Status post CT-guided abscess drain placement 11/15/2019 Bilateral DVT Neutropenia and bandemia, recent C. diff infection Toxic encephalopathy secondary to medication, currently resolved Diarrhea. Recurrent C. diff? C. diff Diarrhea on last hospital stay, completed a 10 day course of antibiotics. H/o recent Severe pancreatitis s/p ex-lap with pancreatic necrosectomy, cholecystostomy tube placement, gastrostomy tube placement, tracheostomy placement, 5 drains, 1.5L ascites drained - likely gallstone Status post tracheostomy - reversed, recovered Severe protein calorie malnutrition - started G-tube feeds Physical deconditioning - PT OT followed History of Hepatitis B J tube replaced by IR during last hospitalization but tolerating TFs at night well. Hemoglobin in the afternoon, type and cross 2 units PRBC pending Hold heparin drip due to GI bleed Pending cardiology, pulmonary, ID, neuro evaluation. Change Keppra to 1000 mg IV twice daily and Depacon 500 mg every 8 per ID. Okay with Versed drip Appreciate surgery recommendations, pending review of CT scan medical versus surgical management Hold DVT prophylaxis Protonix GI prophylaxis Patient is intubated and sedated Full code Discussed with RN and SW Dispo surgery is contraindicated at this time. Surrogate decision maker is Deacon Mata phone: [phone] Total critical care time spent is 45 minutes History of Present Illness History of Present Illness History of Present Illness History of Present Illness 11/16/2019 Patient seen and examined at bedside. Patient continues to have rectal bleeding with clots. 11/15/2019 No acute events overnight. Patient seen and examined at bedside. Patient did have large volume lower GI bleed with about 300 cc. Status post 2 units PRBCs. Patient's chart, labs, images were reviewed and discussed with RN 11/14/2019 Patient seen and examined bedside. Patient is sedated and intubated. Status post cardiac arrest with 3 rounds of CPR. Patient's chart, labs, images were reviewed and discussed with RN 11/13/19 Patient seen and examined Chart reviewed Discussed with RN Complaining of pain Discussed with via phone call 11/12/2019 Patient seen and examined Ostomy in RUQ and PEG tube in LUQ In bed, in NAD, eating breakfast PO Complaining of abdominal pain and insomnia Chart reviewed Discussed with RN Discussed with Limited H&P since patient is not a very good historian. Patient is a 49-year-old gentleman with past medical history of GERD pancreatitis history of DVT who comes to the emergency department complaining of bilateral leg swelling. At the time of my visit the patient is lying in bed in no apparent distress, he seems to be had of hearing, he is not offering many details about the story and we were asked to admit due to results of Doppler ultrasound revealing bilateral DVTs. Apparently the patient had been on Coumadin before it is unclear at this point if the patient has been taking Coumadin prior to this visit to the emergency department. Patient denies any headaches no blurred vision no strokelike symptoms no chest pain palpitations no shortness of breath has been reported. Patient denies abdominal pain no nausea vomiting or diarrhea. The patient certainly complains of discomfort over his bilateral extremities due to the edema. No other complaints were voiced, plan of care has been explained detail to the patient. Later in the day visited with nursing staff letting her concerned that patient may be having excessive sedation from his home medications that include trazodone and Remeron. Will place this on hold I have discussed this with nursing staff 11/08: Patient with recent admission to the hospital for C. difficile and still having diarrhea he had a significant bandemia which could be a consequence of ongoing C. difficile infection. Today feels much better and seems much more awake compared to yesterday after washout of his medications as most likely has kept him quite sedated at home. I have encourage more protein intake plan of care explained detail to the patient and his and all of their concerns were addressed to the best of my ability Vitals/I&O Vitals/I&O: Vital Signs Date Time Temp Pulse Resp B/P (MAP) Pulse Ox O2 Delivery O2 Flow Rate FiO2 11/16/19 09:44 100 Ventilator 11/16/19 06:00 112 18 95/63 (74) 11/16/19 04:00 98.6 98.6 I & O 11/15/19 11/15/19 11/16/19 15:00 23:00 07:00 Intake Total 0 ml 0 ml 404.7 ml Output Total 80 ml 310 ml 595 ml Balance -80 ml -310 ml -190.3 ml Physical Exam Physical Exam: GENERAL: Thin, cachectic male Intubated HEENT: Norm conj. ETT NECK: Supple, no lymphadenopathy. LUNGS: Decreased breath sounds at the bases, increased Resp rate HEART: S1, S2. tachy ABDOMEN: Distended, soft, nontender, fistula in place - bloody drainage, GJ tube in place. - [place] with 3 plus edema EXTREMITIES: Edema, no cyanosis.RLE IO - old site clean DERMATOLOGIC: Warm, dry. 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 NEUROLOGIC: unable to assess PSYCHIATRIC: Unable to assess DERMATOLOGIC: No generalized rash RIJ - clean. General: moderate distress Heart: Regular rate (sinus tach) Lungs: Other (decreased BLL) Abdomen: Soft, Other (drainage in RUQ) Extremities: No cyanosis Skin: No rashes, No significant lesion Labs Labs: Laboratory Tests Test 11/15/19 23:35 11/16/19 05:50 11/16/19 08:00 Vancomycin Level Trough 17.6 mcg/mL (10.0-20.0) Vancomycin Last Dose Date Vancomycin Last Dose Time 1200 White Blood Count 45.6 x10^3/uL (4.0-11.0) Red Blood Count 2.76 x10^6/uL (4.30-5.70) Hemoglobin 7.4 g/dL (13.0-17.5) Hematocrit 23.0 % (39.0-53.0) Mean Corpuscular Volume 83 fL (79-100) Mean Corpuscular Hemoglobin 27 pg (25-35) Mean Corpuscular Hemoglobin Concent 32 g/dL (31-37) Red Cell Distribution Width 19.5 % (11.5-14.5) Platelet Count 215 x10^3/uL (140-400) Neutrophils (%) (Auto) 94 % (31-73) Lymphocytes (%) (Auto) 2 % (24-48) Monocytes (%) (Auto) 4 % (0-9) Eosinophils (%) (Auto) 0 % (0-3) Basophils (%) (Auto) 0 % (0-3) Neutrophils # (Auto) 43.0 x10^3/uL (1.8-7.7) Lymphocytes # (Auto) 0.7 x10^3/uL (1.0-4.8) Monocytes # (Auto) 1.8 x10^3/uL (0.0-1.1) Eosinophils # (Auto) 0.0 x10^3/uL (0.0-0.7) Basophils # (Auto) 0.1 x10^3/uL (0.0-0.2) Sodium Level 134 mmol/L (136-145) Potassium Level 4.3 mmol/L (3.5-5.1) Chloride Level 103 mmol/L (98-107) Carbon Dioxide Level 25 mmol/L (21-32) Anion Gap 6 (6-14) Blood Urea Nitrogen 17 mg/dL (8-26) Creatinine 1.3 mg/dL (0.7-1.3) Estimated GFR (Cockcroft-Gault) 71.0 Glucose Level 110 mg/dL (70-99) Calcium Level 6.6 mg/dL (8.5-10.1) O2 Saturation 97 % (92-99) Arterial Blood pH 7.49 (7.35-7.45) Arterial Blood pCO2 at Patient Temp 32 mmHg (35-46) Arterial Blood pO2 at Patient Temp 115 mmHg (75-108) Arterial Blood HCO3 24 mmol/L (21-28) Arterial Blood Base Excess 0 mmol/L (-3-3) FiO2 40% vent Comment Review of Relevant I have reviewed the following items alexandra (where applicable) has been applied. Medications: Current Medications Medications (Trade) Dose Ordered Sig/Jesse Route PRN Reason Start Time Stop Time Status Last Admin Dose Admin Vancomycin HCl (Vancomycin Trough Level) 1 each 1X ONCE MC 11/15/19 23:30 11/15/19 23:31 DC 11/15/19 23:30 Pantoprazole Sodium (PROTONIX VIAL for IV PUSH) 40 mg DAILYAC IVP 11/16/19 07:30 11/16/19 11:59 DC 11/16/19 07:58 Lidocaine HCl (Buffered Lidocaine 1%) 6 ml 1X ONCE INJ 11/15/19 14:15 11/15/19 14:20 DC 11/15/19 14:15 Justicifation of Admission Dx: Justifications for Admission: Justification of Admission Dx: Yes Comminuty Aquired Pneumonia: Med-High Risk Pt Sepsis: Infection FLORENTINO HUTTON MD Nov 16, 2019 12:05
--- NOTE | 2019-11-16 15:16 | PDOC ---
SURGICAL PROGRESS NOTE Subjective Pt intubated and sedated, some reduction in pressors Vital Signs Vital Signs Date Time Temp Pulse Resp B/P (MAP) Pulse Ox O2 Delivery O2 Flow Rate FiO2 11/16/19 13:00 100 Ventilator 11/16/19 06:00 112 18 95/63 (74) 11/16/19 04:00 98.6 98.6 I&O Intake and Output 11/16/19 07:00 Intake Total 404.7 ml Output Total 985 ml Balance -580.3 ml Intake Oral 0 ml IV Total 404.7 ml Output Urine Total 890 ml Drainage Total 95 ml General: No acute distress Abdomen: Soft, No tenderness, Other (c-tube site with greenish, left drain with dark drainage c/w pancreatic necrosis) Labs Laboratory Tests Test 11/14/19 17:53 11/14/19 23:15 11/15/19 06:15 11/15/19 08:55 Glucose (Fingerstick) 101 mg/dL (70-99) White Blood Count 48.7 x10^3/uL (4.0-11.0) 62.1 x10^3/uL (4.0-11.0) Red Blood Count 3.52 x10^6/uL (4.30-5.70) 3.25 x10^6/uL (4.30-5.70) Hemoglobin 9.5 g/dL (13.0-17.5) 8.9 g/dL (13.0-17.5) Hematocrit 29.6 % (39.0-53.0) 27.8 % (39.0-53.0) Mean Corpuscular Volume 84 fL (79-100) 86 fL (79-100) Mean Corpuscular Hemoglobin 27 pg (25-35) 27 pg (25-35) Mean Corpuscular Hemoglobin Concent 32 g/dL (31-37) 32 g/dL (31-37) Red Cell Distribution Width 19.0 % (11.5-14.5) 19.3 % (11.5-14.5) Platelet Count 408 x10^3/uL (140-400) 279 x10^3/uL (140-400) Neutrophils (%) (Auto) 97 % (31-73) Lymphocytes (%) (Auto) 1 % (24-48) Monocytes (%) (Auto) 2 % (0-9) Eosinophils (%) (Auto) 0 % (0-3) Basophils (%) (Auto) 0 % (0-3) Neutrophils # (Auto) 60.3 x10^3/uL (1.8-7.7) Lymphocytes # (Auto) 0.5 x10^3/uL (1.0-4.8) Monocytes # (Auto) 1.3 x10^3/uL (0.0-1.1) Eosinophils # (Auto) 0.0 x10^3/uL (0.0-0.7) Basophils # (Auto) 0.1 x10^3/uL (0.0-0.2) Segmented Neutrophils % 40 % (35-66) Band Neutrophils % 54 % (0-9) Monocytes % 2 % (0-10) Metamyelocytes % 4 % (0-0) Nucleated Red Blood Cells 1 Toxic Granulation Present Dohle Bodies Present Platelet Estimate Adequate (ADEQUATE) Anisocytosis Slight Sodium Level 133 mmol/L (136-145) Potassium Level 4.3 mmol/L (3.5-5.1) Chloride Level 102 mmol/L (98-107) Carbon Dioxide Level 21 mmol/L (21-32) Anion Gap 10 (6-14) Blood Urea Nitrogen 16 mg/dL (8-26) Creatinine 1.5 mg/dL (0.7-1.3) Estimated GFR (Cockcroft-Gault) 60.2 Glucose Level 80 mg/dL (70-99) Calcium Level 6.8 mg/dL (8.5-10.1) O2 Saturation 98 % (92-99) Arterial Blood pH 7.43 (7.35-7.45) Arterial Blood pH (Temp corrected) 7.41 Arterial Blood pCO2 at Patient Temp 23 mmHg (35-46) Arterial Blood pCO2 (Temp correct) 25 mmHg Arterial Blood pO2 at Patient Temp 140 mmHg (75-108) Arterial Blood pO2 (Temp corrected) 149 mmHg Arterial Blood HCO3 15 mmol/L (21-28) Arterial Blood Base Excess -8 mmol/L (-3-3) FiO2 45% vent Test 11/15/19 23:35 11/16/19 05:50 11/16/19 08:00 Vancomycin Level Trough 17.6 mcg/mL (10.0-20.0) Vancomycin Last Dose Date Vancomycin Last Dose Time 1200 White Blood Count 45.6 x10^3/uL (4.0-11.0) Red Blood Count 2.76 x10^6/uL (4.30-5.70) Hemoglobin 7.4 g/dL (13.0-17.5) Hematocrit 23.0 % (39.0-53.0) Mean Corpuscular Volume 83 fL (79-100) Mean Corpuscular Hemoglobin 27 pg (25-35) Mean Corpuscular Hemoglobin Concent 32 g/dL (31-37) Red Cell Distribution Width 19.5 % (11.5-14.5) Platelet Count 215 x10^3/uL (140-400) Neutrophils (%) (Auto) 94 % (31-73) Lymphocytes (%) (Auto) 2 % (24-48) Monocytes (%) (Auto) 4 % (0-9) Eosinophils (%) (Auto) 0 % (0-3) Basophils (%) (Auto) 0 % (0-3) Neutrophils # (Auto) 43.0 x10^3/uL (1.8-7.7) Lymphocytes # (Auto) 0.7 x10^3/uL (1.0-4.8) Monocytes # (Auto) 1.8 x10^3/uL (0.0-1.1) Eosinophils # (Auto) 0.0 x10^3/uL (0.0-0.7) Basophils # (Auto) 0.1 x10^3/uL (0.0-0.2) Sodium Level 134 mmol/L (136-145) Potassium Level 4.3 mmol/L (3.5-5.1) Chloride Level 103 mmol/L (98-107) Carbon Dioxide Level 25 mmol/L (21-32) Anion Gap 6 (6-14) Blood Urea Nitrogen 17 mg/dL (8-26) Creatinine 1.3 mg/dL (0.7-1.3) Estimated GFR (Cockcroft-Gault) 71.0 Glucose Level 110 mg/dL (70-99) Calcium Level 6.6 mg/dL (8.5-10.1) O2 Saturation 97 % (92-99) Arterial Blood pH 7.49 (7.35-7.45) [facility] (35-46[facility] Arterial Blood pO2 at Patient Temp 115 mmHg (75-108) Arterial Blood HCO3 24 mmol/L (21-28) Arterial Blood Base Excess 0 mmol/L (-3-3) FiO2 40% vent Laboratory Tests Test 11/15/19 23:35 11/16/19 05:50 11/16/19 08:00 Vancomycin Level Trough 17.6 mcg/mL (10.0-20.0) Vancomycin Last Dose Date Vancomycin Last Dose Time 1200 White Blood Count 45.6 x10^3/uL (4.0-11.0) Red Blood Count 2.76 x10^6/uL (4.30-5.70) Hemoglobin 7.4 g/dL (13.0-17.5) Hematocrit 23.0 % (39.0-53.0) Mean Corpuscular Volume 83 fL (79-100) Mean Corpuscular Hemoglobin 27 pg (25-35) Mean Corpuscular Hemoglobin Concent 32 g/dL (31-37) Red Cell Distribution Width 19.5 % (11.5-14.5) Platelet Count 215 x10^3/uL (140-400) Neutrophils (%) (Auto) 94 % (31-73) Lymphocytes (%) (Auto) 2 % (24-48) Monocytes (%) (Auto) 4 % (0-9) Eosinophils (%) (Auto) 0 % (0-3) Basophils (%) (Auto) 0 % (0-3) Neutrophils # (Auto) 43.0 x10^3/uL (1.8-7.7) Lymphocytes # (Auto) 0.7 x10^3/uL (1.0-4.8) Monocytes # (Auto) 1.8 x10^3/uL (0.0-1.1) Eosinophils # (Auto) 0.0 x10^3/uL (0.0-0.7) Basophils # (Auto) 0.1 x10^3/uL (0.0-0.2) Sodium Level 134 mmol/L (136-145) Potassium Level 4.3 mmol/L (3.5-5.1) Chloride Level 103 mmol/L (98-107) Carbon Dioxide Level 25 mmol/L (21-32) Anion Gap 6 (6-14) Blood Urea Nitrogen 17 mg/dL (8-26) Creatinine 1.3 mg/dL (0.7-1.3) Estimated GFR (Cockcroft-Gault) 71.0 Glucose Level 110 mg/dL (70-99) Calcium Level 6.6 mg/dL (8.5-10.1) O2 Saturation 97 % (92-99) Arterial Blood pH 7.49 (7.35-7.45) Arterial Blood pCO2 at Patient Temp 32 mmHg (35-46) Arterial Blood pO2 at Patient Temp 115 mmHg (75-108) Arterial Blood HCO3 24 mmol/L (21-28) Arterial Blood Base Excess 0 mmol/L (-3-3) FiO2 40% vent Problem List pancreatitis cont drains and abx and supportive care no surgical plans. Justicifation of Admission Dx: Justifications for Admission: Justification of Admission Dx: Yes Comminuty Aquired Pneumonia: Med-High Risk Pt Sepsis: Infection KARLA CALL MD Nov 16, 2019 15:15
--- NOTE | 2019-11-16 19:13 | PDOC ---
PROGRESS NOTES Assessment 1. 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 Sedating medicines have been tapered. He is still on low-dose fentanyl which the nurse will presently stop. He may be a very slow metabolizer of the medications. 2. Status epilepticus currently on Depakote and Keppra. There is no longer evidence clinically of seizure activity. 3. Pancreatitis with the development of abscess which was percutaneously drained. He currently has a drain in place which is draining a malodorous red liquid. 4. Respiratory failure currently intubated and ventilated 5. Gastrointestinal hemorrhage while on anticoagulation. The nurse reports that he still having blood clots and a gelatinous material from his rectum. The hemoglobin and hematocrit are dropping. Plan 1. Prognosis from the anoxic injury with prolonged seizure is very poor. I will order an EEG on Sunday to determine if there is subclinical seizure. Clinically, the seizures have stopped. He is on Keppra and Depakote. 2. He has had an elevating white blood cell count due to underlying infection. He is undergoing drainage which will hopefully be helpful. 3. Neurology will follow on a daily basis to determine if the examination as sedation is eliminated. I will also arrange for a CT scan of the brain without contrast for tomorrow to evaluate for an interval change. Subjective Nonverbal Objective Vital Signs Date Time Temp Pulse Resp B/P (MAP) Pulse Ox O2 Delivery O2 Flow Rate FiO2 11/16/19 17:11 100 Ventilator 11/16/19 06:00 112 18 95/63 (74) 11/16/19 04:00 98.6 98.6 Intake and Output 11/16/19 07:00 Intake Total 404.7 ml Output Total 985 ml Balance -580.3 ml Intake Oral 0 ml IV Total 404.7 ml Output Urine Total 890 ml Drainage Total 95 ml PHYSICAL EXAM He was intubated and ventilated. The only sedation was fentanyl at 12.5 mcg/h. This was discontinued after my evaluation. His eyes were closed. When held open the eyes were disconjugate. He did not respond to visual threat or loud clap. Oculocephalic reflex was only partially present. Pupils were 2 to 3 mm. The face was symmetric. He coughed with deep suctioning. Muscle bulk was symmetric and diminished. There was no right to nailbed pressure. He did not look up to command or follow commands. Review of Relevant I have reviewed the following items alexandra (where applicable) has been applied. Labs Laboratory Tests Test 11/14/19 23:15 11/15/19 06:15 11/15/19 08:55 11/15/19 23:35 White Blood Count 48.7 x10^3/uL (4.0-11.0) 62.1 x10^3/uL (4.0-11.0) Red Blood Count 3.52 x10^6/uL (4.30-5.70) 3.25 x10^6/uL (4.30-5.70) Hemoglobin 9.5 g/dL (13.0-17.5) 8.9 g/dL (13.0-17.5) Hematocrit 29.6 % (39.0-53.0) 27.8 % (39.0-53.0) Mean Corpuscular Volume 84 fL (79-100) 86 fL (79-100) Mean Corpuscular Hemoglobin 27 pg (25-35) 27 pg (25-35) Mean Corpuscular Hemoglobin Concent 32 g/dL (31-37) 32 g/dL (31-37) Red Cell Distribution Width 19.0 % (11.5-14.5) 19.3 % (11.5-14.5) Platelet Count 408 x10^3/uL (140-400) 279 x10^3/uL (140-400) Neutrophils (%) (Auto) 97 % (31-73) Lymphocytes (%) (Auto) 1 % (24-48) Monocytes (%) (Auto) 2 % (0-9) Eosinophils (%) (Auto) 0 % (0-3) Basophils (%) (Auto) 0 % (0-3) Neutrophils # (Auto) 60.3 x10^3/uL (1.8-7.7) Lymphocytes # (Auto) 0.5 x10^3/uL (1.0-4.8) Monocytes # (Auto) 1.3 x10^3/uL (0.0-1.1) Eosinophils # (Auto) 0.0 x10^3/uL (0.0-0.7) Basophils # (Auto) 0.1 x10^3/uL (0.0-0.2) Segmented Neutrophils % 40 % (35-66) Band Neutrophils % 54 % (0-9) Monocytes % 2 % (0-10) Metamyelocytes % 4 % (0-0) Nucleated Red Blood Cells 1 Toxic Granulation Present Dohle Bodies Present Platelet Estimate Adequate (ADEQUATE) Anisocytosis Slight Sodium Level 133 mmol/L (136-145) Potassium Level 4.3 mmol/L (3.5-5.1) Chloride Level 102 mmol/L (98-107) Carbon Dioxide Level 21 mmol/L (21-32) Anion Gap 10 (6-14) Blood Urea Nitrogen 16 mg/dL (8-26) Creatinine 1.5 mg/dL (0.7-1.3) Estimated GFR (Cockcroft-Gault) 60.2 Glucose Level 80 mg/dL (70-99) Calcium Level 6.8 mg/dL (8.5-10.1) O2 Saturation 98 % (92-99) Arterial Blood pH 7.43 (7.35-7.45) Arterial Blood pH (Temp corrected) 7.41 Arterial Blood pCO2 at Patient Temp 23 mmHg (35-46) Arterial Blood pCO2 (Temp correct) 25 mmHg Arterial Blood pO2 at Patient Temp 140 mmHg (75-108) Arterial Blood pO2 (Temp corrected) 149 mmHg Arterial Blood HCO3 15 mmol/L (21-28) Arterial Blood Base Excess -8 mmol/L (-3-3) FiO2 45% vent Vancomycin Level Trough 17.6 mcg/mL (10.0-20.0) Vancomycin Last Dose Date Vancomycin Last Dose Time 1200 Test 11/16/19 05:50 11/16/19 08:00 White Blood Count 45.6 x10^3/uL (4.0-11.0) Red Blood Count 2.76 x10^6/uL (4.30-5.70) Hemoglobin 7.4 g/dL (13.0-17.5) Hematocrit 23.0 % (39.0-53.0) Mean Corpuscular Volume 83 fL (79-100) Mean Corpuscular Hemoglobin 27 pg (25-35) Mean Corpuscular Hemoglobin Concent 32 g/dL (31-37) Red Cell Distribution Width 19.5 % (11.5-14.5) Platelet Count 215 x10^3/uL (140-400) Neutrophils (%) (Auto) 94 % (31-73) Lymphocytes (%) (Auto) 2 % (24-48) Monocytes (%) (Auto) 4 % (0-9) Eosinophils (%) (Auto) 0 % (0-3) Basophils (%) (Auto) 0 % (0-3) Neutrophils # (Auto) 43.0 x10^3/uL (1.8-7.7) Lymphocytes # (Auto) 0.7 x10^3/uL (1.0-4.8) Monocytes # (Auto) 1.8 x10^3/uL (0.0-1.1) Eosinophils # (Auto) 0.0 x10^3/uL (0.0-0.7) Basophils # (Auto) 0.1 x10^3/uL (0.0-0.2) Sodium Level 134 mmol/L (136-145) Potassium Level 4.3 mmol/L (3.5-5.1) Chloride Level 103 mmol/L (98-107) Carbon Dioxide Level 25 mmol/L (21-32) Anion Gap 6 (6-14) Blood Urea Nitrogen 17 mg/dL (8-26) Creatinine 1.3 mg/dL (0.7-1.3) Estimated GFR (Cockcroft-Gault) 71.0 Glucose Level 110 mg/dL (70-99) Calcium Level 6.6 mg/dL (8.5-10.1) O2 Saturation 97 % (92-99) Arterial Blood pH 7.49 (7.35-7.45) Arterial Blood pCO2 at Patient Temp 32 mmHg (35-46) Arterial Blood pO2 at Patient Temp 115 mmHg (75-108) Arterial Blood HCO3 24 mmol/L (21-28) Arterial Blood Base Excess 0 mmol/L (-3-3) FiO2 40% vent Laboratory Tests Test 11/15/19 23:35 11/16/19 05:50 11/16/19 08:00 Vancomycin Level Trough 17.6 mcg/mL (10.0-20.0) Vancomycin Last Dose Date Vancomycin Last Dose Time 1200 White Blood Count 45.6 x10^3/uL (4.0-11.0) Red Blood Count 2.76 x10^6/uL (4.30-5.70) Hemoglobin 7.4 g/dL (13.0-17.5) Hematocrit 23.0 % (39.0-53.0) Mean Corpuscular Volume 83 fL (79-100) Mean Corpuscular Hemoglobin 27 pg (25-35) Mean Corpuscular Hemoglobin Concent 32 g/dL (31-37) Red Cell Distribution Width 19.5 % (11.5-14.5) Platelet Count 215 x10^3/uL (140-400) Neutrophils (%) (Auto) 94 % (31-73) Lymphocytes (%) (Auto) 2 % (24-48) Monocytes (%) (Auto) 4 % (0-9) Eosinophils (%) (Auto) 0 % (0-3) Basophils (%) (Auto) 0 % (0-3) Neutrophils # (Auto) 43.0 x10^3/uL (1.8-7.7) Lymphocytes # (Auto) 0.7 x10^3/uL (1.0-4.8) Monocytes # (Auto) 1.8 x10^3/uL (0.0-1.1) Eosinophils # (Auto) 0.0 x10^3/uL (0.0-0.7) Basophils # (Auto) 0.1 x10^3/uL (0.0-0.2) Sodium Level 134 mmol/L (136-145) Potassium Level 4.3 mmol/L (3.5-5.1) Chloride Level 103 mmol/L (98-107) Carbon Dioxide Level 25 mmol/L (21-32) Anion Gap 6 (6-14) Blood Urea Nitrogen 17 mg/dL (8-26) Creatinine 1.3 mg/dL (0.7-1.3) Estimated GFR (Cockcroft-Gault) 71.0 Glucose Level 110 mg/dL (70-99) Calcium Level 6.6 mg/dL (8.5-10.1) O2 Saturation 97 % (92-99) Arterial Blood pH 7.49 (7.35-7.45) Arterial Blood pCO2 at Patient Temp 32 mmHg (35-46) Arterial Blood pO2 at Patient Temp 115 mmHg (75-108) Arterial Blood HCO3 24 mmol/L (21-28) Arterial Blood Base Excess 0 mmol/L (-3-3) FiO2 40% vent Microbiology 11/14/19 Blood Culture - Preliminary, Resulted NO GROWTH AFTER 2 DAYS 11/14/19 Gram Stain Evaluation - Final, Complete 11/14/19 Respiratory Culture - Final, Complete 11/14/19 Antimicrobic Susceptibility - Final, Complete 11/07/19 Urine Culture - Final, Complete Medications Current Medications Ceftriaxone Sodium (Rocephin) 1 gm 1X ONCE IVP ; Start 11/08/19 at 00:00; Stop 11/08/19 at 01:23; Status DC Enoxaparin Sodium (Lovenox 80mg Syringe) 80 mg 1X ONCE SQ Last administered on 11/08/19at 02:43; Start 11/08/19 at 00:00; Stop 11/08/19 at 00:01; Status DC Ceftriaxone Sodium (Rocephin Im) 1 gm 1X ONCE IM Last administered on 11/08/19at 02:42; Start 11/08/19 at 01:45; Stop 11/08/19 at 01:46; Status DC Lorazepam (Ativan) 0.5 mg 1X ONCE PO Last administered on 11/08/19at 03:28; Start 11/08/19 at 03:15; Stop 11/08/19 at 03:16; Status DC Acetaminophen (Tylenol) 500 mg PRN Q6HRS PRN PO FEVER Last administered on 11/12/19at 04:36; Start 11/08/19 at 07:30 Alprazolam (Xanax) 0.5 mg HS PO Last administered on 11/11/19at 20:38; Start 11/08/19 at 21:00 Buspirone HCl (Buspar) 10 mg BIDACBL PO Last administered on 11/08/19at 10:54; Start 11/08/19 at 07:30; Stop 11/08/19 at 11:46; Status DC Ferrous Sulfate (Feosol) 325 mg BIDWMEALS PO Last administered on 11/16/19at 17:41; Start 11/08/19 at 08:00 Gabapentin (Neurontin) 100 mg TID PO Last administered on 11/08/19at 10:54; Start 11/08/19 at 09:00; Stop 11/08/19 at 11:46; Status DC Mirtazapine (Remeron) 15 mg QHS PO ; Start 11/08/19 at 21:00; Stop 11/08/19 at 17:19; Status DC Pantoprazole Sodium (Protonix) 40 mg DAILYAC PO Last administered on 11/15/19at 08:59; Start 11/08/19 at 08:00; Stop 11/15/19 at 12:56; Status DC Trazodone HCl (Desyrel) 50 mg QHS PO ; Start 11/08/19 at 21:00; Stop 11/08/19 at 17:19; Status DC Oxycodone HCl (Roxicodone) 15 mg PRN Q6HRS PRN PO PAIN Last administered on 11/13/19at 11:01; Start 11/08/19 at 07:45 Apixaban (Eliquis) 10 mg BID PO Last administered on 11/13/19at 21:32; Start 11/08/19 at 09:00; Stop 11/14/19 at 10:08; Status DC Apixaban (Eliquis) 5 mg BID PO ; Start 11/15/19 at 09:00; Stop 11/14/19 at 10:08; Status DC Info (Anti-Coagulation Monitoring By Pharmacy) 1 each PRN DAILY PRN MC SEE COMMENTS Last administered on 11/13/19at 15:20; Start 11/08/19 at 07:45 Vancomycin HCl (Vancomycin Oral Solution) 125 mg [id number] PO Last administered on 11/08/19at 20:48; Start 11/08/19 at 17:30; Stop 11/09/19 at 09:55; Status DC Vancomycin HCl (Vancomycin Oral Solution) 250 mg [id number] PO Last administered on 11/11/19at 20:38; Start 11/09/19 at 13:00; Stop 11/12/19 at 09:03; Status DC Lactobacillus Rhamnosus (Culturelle) 1 cap BID PO Last administered on 11/16/19at 07:58; Start 11/09/19 at 21:00 Piperacillin Sod/ Tazobactam Sod 3.375 gm/Sodium Chloride 50 ml @ 100 mls/hr Q6HRS IV Last administered on 11/10/19at 05:58; Start 11/09/19 at 18:00; Stop 11/10/19 at 11:45; Status DC Temazepam (Restoril) 15 mg PRN QHS PRN PO INSOMNIA Last administered on 11/12/19at 23:15; Start 11/12/19 at 09:00 Vancomycin HCl (Vancomycin Oral Solution) 125 mg [id number] PO Last administered on 11/16/19at 17:40; Start 11/12/19 at 10:00 Iohexol (Omnipaque 350 Mg/ml) 100 ml 1X ONCE IV Last administered on 11/13/19at 08:15; Start 11/13/19 at 08:15; Stop 11/13/19 at 08:22; Status DC Info (CONTRAST GIVEN -- Rx MONITORING) 1 each PRN DAILY PRN MC SEE COMMENTS; Start 11/13/19 at 08:30; Stop 11/13/19 at 09:04; Status DC Fentanyl Citrate (Fentanyl 2ml Vial) 100 mcg STK-MED ONCE .ROUTE ; Start 11/13/19 at 08:43; Stop 11/13/19 at 08:43; Status DC Iohexol (Omnipaque 240 Mg/ml) 50 ml STK-MED ONCE .ROUTE ; Start 11/13/19 at 08:45; Stop 11/13/19 at 08:46; Status DC Fentanyl Citrate (Fentanyl 2ml Vial) 50 mcg 1X ONCE IV Last administered on 11/13/19at 09:37; Start 11/13/19 at 09:00; Stop 11/13/19 at 09:03; Status DC Iohexol (Omnipaque 240 Mg/ml) 50 ml 1X ONCE PO Last administered on 11/13/19at 09:37; Start 11/13/19 at 09:00; Stop 11/13/19 at 09:03; Status DC Info (CONTRAST GIVEN -- Rx MONITORING) 1 each PRN DAILY PRN MC SEE COMMENTS; Start 11/13/19 at 09:15; Stop 11/15/19 at 09:14; Status DC Morphine Sulfate (Morphine Sulfate) 2 mg PRN Q2HR PRN IV PAIN Last administered on 11/13/19at 11:34; Start 11/13/19 at 11:30; Stop 11/13/19 at 13:53; Status DC Morphine Sulfate (Morphine Sulfate) 4 mg PRN Q2HR PRN IVP MODERATE TO SEVERE PAIN Last administered on 11/14/19at 08:16; Start 11/13/19 at 14:00 Ondansetron HCl (Zofran) 4 mg PRN Q6HRS PRN IVP NAUSEA/VOMITING Last administered on 11/14/19at 00:13; Start 11/13/19 at 19:30 Dextrose (Dextrose 50%-Water Syringe) 25 gm STK-MED ONCE IV ; Start 11/14/19 at 07:28; Stop 11/14/19 at 07:28; Status DC Epinephrine HCl 5 mg/Sodium Chloride 255 ml @ 23.47 mls/ hr 1X ONCE IV ; Start 11/14/19 at 08:00; Stop 11/14/19 at 18:51; Status DC Fentanyl Citrate 30 ml @ 0 mls/hr CONT PRN IV SEE PROTOCOL Last administered on 11/16/19at 12:15; Start 11/14/19 at 08:15 Propofol 100 ml @ 0 mls/hr CONT PRN IV SEE PROTOCOL; Start 11/14/19 at 08:15 Midazolam HCl 100 ml @ 0 mls/hr CONT PRN IV SEE PROTOCOL Last administered on 11/15/19at 08:36; Start 11/14/19 at 08:15 Meropenem 500 mg/ Sodium Chloride 50 ml @ 100 mls/hr Q6HRS IV Last administered on 11/15/19at 05:29; Start 11/14/19 at 12:00; Stop 11/15/19 at 06:10; Status DC Vancomycin HCl (Vanco Per Pharmacy) 1 each PRN DAILY PRN MC SEE COMMENTS Last administered on 11/16/19at 10:42; Start 11/14/19 at 09:00 Metronidazole 100 ml @ 100 mls/hr Q8HRS IV Last administered on 11/16/19at 14:12; Start 11/14/19 at 12:00 Micafungin Sodium 100 mg/Dextrose 100 ml @ 100 mls/hr Q24H IV Last administered on 11/16/19at 08:00; Start 11/14/19 at 09:00 Metronidazole 100 ml @ 100 mls/hr Q8HRS IV ; Start 11/14/19 at 09:05; Stop 11/14/19 at 13:38; Status DC Vancomycin HCl 2 gm/Sodium Chloride 500 ml @ 250 mls/hr 1X ONCE IV Last administered on 11/14/19at 12:04; Start 11/14/19 at 10:00; Stop 11/14/19 at 11:59; Status DC Norepinephrine Bitartrate 8 mg/ Dextrose 258 ml @ 14.841 mls/ hr CONT PRN IV PER PROTOCOL Last administered on 11/16/19at 12:13; Start 11/14/19 at 09:30 Heparin Sodium/ Dextrose 250 ml @ 9.2 mls/hr CONT PRN IV PER PROTOCOL; Start 11/14/19 at 10:00; Stop 11/14/19 at 16:18; Status DC Heparin Sodium (Porcine) (Heparin Sodium) 1,900 unit PRN Q6HRS PRN IV FOR UFH LEVEL LESS THAN 0.2; Start 11/14/19 at 10:00; Stop 11/14/19 at 16:18; Status DC Heparin Sodium (Porcine) (Heparin Sodium) 4,000 unit 1X ONCE IV ; Start 11/14/19 at 10:00; Stop 11/14/19 at 16:18; Status DC Aspirin (Woodrow Aspirin) 325 mg 1X ONCE JT ; Start 11/14/19 at 10:30; Stop 11/14/19 at 16:18; Status DC Sodium Chloride 1,000 ml @ 500 mls/hr Q2H IV Last administered on 11/14/19at 13:31; Start 11/14/19 at 11:30; Stop 11/14/19 at 15:29; Status DC Lidocaine HCl (Buffered Lidocaine 1%) 3 ml STK-MED ONCE .ROUTE ; Start 11/14/19 at 15:06; Stop 11/14/19 at 15:07; Status DC Iohexol (Omnipaque 240 Mg/ml) 50 ml STK-MED ONCE .ROUTE ; Start 11/14/19 at 15:06; Stop 11/14/19 at 15:07; Status DC Lidocaine HCl (Buffered Lidocaine 1%) 6 ml 1X ONCE INJ Last administered on 11/14/19at 16:51; Start 11/14/19 at 16:15; Stop 11/14/19 at 16:16; Status DC Iohexol (Omnipaque 240 Mg/ml) 50 ml 1X ONCE IJ Last administered on 11/14/19at 16:52; Start 11/14/19 at 16:15; Stop 11/14/19 at 16:16; Status DC Iohexol (Omnipaque 240 Mg/ml) 50 ml STK-MED ONCE .ROUTE ; Start 11/14/19 at 16:09; Stop 7/31/20 at 16:09; Status DC Levetiracetam 1000 mg/Dextrose 110 ml @ 440 mls/hr 1X ONCE IV Last ad ministered on 11/14/19at 17:09; Start 11/14/19 at 16:15; Stop 11/14/19 at 16:29; Status DC Levetiracetam 500 mg/Dextrose 105 ml @ 420 mls/hr Q12HR IV Last administered on 11/14/19at 20:55; Start 11/14/19 at 21:00; Stop 11/14/19 at 21:56; Status DC Iohexol (Omnipaque 240 Mg/ml) 50 ml STK-MED ONCE .ROUTE ; Start 11/14/19 at 16:14; Stop 11/14/19 at 16:15; Status DC Vancomycin HCl 1.25 gm/Sodium Chloride 250 ml @ 167 mls/hr Q12H IV Last administered on 11/16/19at 12:07; Start 11/15/19 at 00:01 Vancomycin HCl (Vancomycin Trough Level) 1 each 1X ONCE MC Last administered on 11/15/19at 23:30; Start 11/15/19 at 23:30; Stop 11/15/19 at 23:31; Status DC Heparin Sodium/ Sodium Chloride 500 ml @ As Directed STK-MED ONCE .ROUTE ; Start 11/14/19 at 16:41; Stop 11/14/19 at 16:41; Status DC Heparin Sodium/ Sodium Chloride (HEPARIN for ARTERIAL LINE FLUSH) 1,000 unit 1X ONCE IV Last administered on 11/14/19at 16:54; Start 11/14/19 at 17:00; Stop 11/14/19 at 17:01; Status DC Levetiracetam 500 mg/Dextrose 105 ml @ 420 mls/hr 1X ONCE IV Last administered on 11/14/19at 22:02; Start 11/14/19 at 22:30; Stop 11/14/19 at 22:44; Status DC Levetiracetam 1000 mg/Dextrose 110 ml @ 440 mls/hr Q12HR IV Last administered on 11/16/19at 12:04; Start 11/15/19 at 09:00 Valproic Acid 1000 mg/Dextrose 60 ml @ 55 mls/hr 1X ONCE IV Last administered on 11/14/19at 23:01; Start 11/14/19 at 23:00; Stop 11/15/19 at 00:05; Status DC Valproic Acid 500 mg/Dextrose 55 ml @ 55 mls/hr Q8HRS IV Last administered on 11/16/19at 14:07; Start 11/15/19 at 06:00 Acetaminophen (Tylenol) 650 mg PRN Q6HRS PRN PEG MILD PAIN/TEMP > 100.3'F Last administered on 11/15/19at 04:33; Start 11/15/19 at 04:15 Cefepime HCl (Maxipime) 1 gm Q8HRS IVP Last administered on 11/16/19at 13:59; Start 11/15/19 at 07:00 Sodium Bicarbonate (Sodium Bicarb Adult 8.4% Syr) 50 meq 1X ONCE IV Last administered on 11/15/19at 10:16; Start 11/15/19 at 10:15; Stop 11/15/19 at 10:16; Status DC Lidocaine HCl (Buffered Lidocaine 1%) 3 ml STK-MED ONCE .ROUTE ; Start 11/15/19 at 12:38; Stop 11/15/19 at 12:38; Status DC Pantoprazole Sodium (PROTONIX VIAL for IV PUSH) 40 mg DAILYAC IVP Last administered on 11/16/19at 07:58; Start 11/16/19 at 07:30; Stop 11/16/19 at 11:59; Status DC Lidocaine HCl (Buffered Lidocaine 1%) 6 ml 1X ONCE INJ Last administered on 11/15/19at 14:15; Start 11/15/19 at 14:15; Stop 11/15/19 at 14:20; Status DC Pantoprazole Sodium (PROTONIX VIAL for IV PUSH) 40 mg BID IVP ; Start 11/16/19 at 21:00 Active Scripts Active Oxycodone Hcl Immed.release (Oxycodone Hcl) 15 Mg Tablet 15 Mg PO PRN Q6HRS PRN 5 Days Reported Remeron (Mirtazapine) 15 Mg Tablet 1 Tab PO QHS Buspirone Hcl 10 Mg Tablet 1 Tab PO BIDACBL Alprazolam 0.5 Mg Tablet 1 Tab PO HS Acetaminophen 500 Mg Tablet 1 Tab PO PRN Q6HRS PRN 15 Days Ferrous Sulfate 325 Mg Tablet 65 Mg PO BID Pantoprazole Sodium (Pantoprazole Sodium) 40 Mg Tablet. 40 Mg PO DAILYAC Trazodone Hcl 50 Mg Tablet 1 Tab PO QHS Gabapentin (Gabapentin) 100 Mg Capsule 100 Mg PO TID Vitals/I & O Vital Sign - Last 24 Hours 11/15/19 11/15/19 11/15/19 11/15/19 19:58 20:00 20:00 21:00 Temp 98.7 98.7 Pulse 124 121 Resp 18 18 B/P (MAP) 102/69 (80) 105/76 (86) Pulse Ox 100 100 100 O2 Delivery Ventilator Ventilator Mechanical Ventilator Ventilator 11/15/19 11/15/19 11/15/19 11/16/19 22:00 22:39 23:00 00:00 Temp 99.5 99.5 Pulse 120 121 120 Resp 19 19 19 B/P (MAP) 105/76 (86) 102/69 (80) 103/69 (80) Pulse Ox 100 100 100 100 O2 Delivery Ventilator Ventilator Ventilator Ventilator 11/16/19 11/16/19 11/16/19 11/16/19 00:00 01:00 01:10 02:00 Pulse 117 116 Resp 17 17 B/P (MAP) 90/66 (74) 95/59 (71) Pulse Ox 100 100 100 O2 Delivery Mechanical Ventilator Ventilator Ventilator Ventilator 11/16/19 11/16/19 11/16/19 11/16/19 03:00 03:34 04:00 04:00 Temp 98.6 98.6 Pulse 115 111 Resp 17 17 B/P (MAP) 86/65 (72) 96/62 (73) Pulse Ox 100 100 100 O2 Delivery Ventilator Ventilator Ventilator Mechanical Ventilator 11/16/19 11/16/19 11/16/19 11/16/19 05:00 05:10 06:00 07:23 Pulse 113 112 Resp 18 18 B/P (MAP) 99/67 (78) 95/63 (74) Pulse Ox 100 100 100 100 O2 Delivery Ventilator Ventilator Ventilator Ventilator 11/16/19 11/16/19 11/16/19 11/16/19 08:00 09:44 11:25 12:00 Pulse Ox 100 100 O2 Delivery Mechanical Ventilator Ventilator Ventilator Mechanical Ventilator 11/16/19 11/16/19 11/16/19 11/16/19 12:15 12:45 13:00 15:35 Pulse Ox 100 100 100 100 O2 Delivery Ventilator Ventilator 11/16/19 11/16/19 16:00 17:11 Pulse Ox 100 O2 Delivery Mechanical Ventilator Ventilator Intake and Output 11/15/19 11/15/19 11/16/19 15:00 23:00 07:00 Intake Total 0 ml 0 ml 404.7 ml Output Total 80 ml 310 ml 595 ml Balance -80 ml -310 ml -190.3 ml Justicifation of Admission Dx: Justifications for Admission: Justification of Admission Dx: Yes Comminuty Aquired Pneumonia: Med-High Risk Pt Sepsis: Infection NACHO WILKERSON MD Nov 16, 2019 19:13
[2019-11-16] MEDS: ALPRAZolam 0.5 MG TABLET PO SCH (21:00)
[2019-11-16] MEDS: PANTOPRAZOLE IV PUSH 40 MG VIAL. IVP SCH (21:44)
[2019-11-17] VITALS (28 sets, daily range): BP systolic 90–120; BP diastolic 63–91
[2019-11-17 05:15] LABS: BASO # 0.2 x10^3/uL (0.0-0.2); BASO % 1 % (0-3); EOS % 0 % (0-3); HEMATOCRIT 22.1 % (39.0-53.0); HEMOGLOBIN 7.4 g/dL (13.0-17.5); LYMPH # 0.9 x10^3/uL (1.0-4.8); LYMPH % 3 % (24-48); MEAN CORPUSCULAR HEMOGLOBIN 28 pg (25-35); MEAN CORPUSCULAR HGB CONC 33 g/dL (31-37); MEAN CORPUSCULAR VOLUME 84 fL (79-100); MONO # 2.1 x10^3/uL (0.0-1.1); MONO % 6 % (0-9); NEUT # 33.1 x10^3/uL (1.8-7.7); NEUT % 91 % (31-73); PLATELET COUNT 168 x10^3/uL (140-400); RED BLOOD COUNT 2.64 x10^6/uL (4.30-5.70); RED CELL DISTRIBUTION WIDTH 19.7 % (11.5-14.5); WHITE BLOOD COUNT 36.4 x10^3/uL (4.0-11.0)
[2019-11-17 05:51] LABS: CALCIUM 6.8 mg/dL (8.5-10.1); CREATININE 1.1 mg/dL (0.7-1.3); GFR 86.1; POTASSIUM 4.1 mmol/L (3.5-5.1)
[2019-11-17] MEDS: VALPROIC ACID (AS SODIUM SALT) 500 MG in IV DEXTROSE 5% 50 ML IV SCH ×3 (05:54→21:30)
[2019-11-17] MEDS: CEFEPIME HCL IV Push 1 GM VIAL. IVP SCH ×3 (05:56→21:31)
--- NOTE | 2019-11-17 06:44 | NUR ---
Pt off sedation medications since previous shift. Pts eyes are now both deviated inward, PERLL, and pt is responsive to physical stimuli. Pt has cough and gag reflux noted. Pts extremities continue to be flaccid. Pt has had multiple large, liquid, bloody stools this shift. Pt has already been diagnosed with a GI bleed r/t C.diff. Pts Hgb this am after multiple BMs is 7.4. 3-4+ pitting edema noted to pts BLE. BLE have been elevated throughout the shift. Pt has been afebrile this shift. EEG and CT scheduled for today. Will pass on and continue to monitor.
--- NOTE | 2019-11-17 07:39 | PDOC ---
Infectious Disease Note Subjective Subjective intubated on vent, unresponsive, off sedation for 1 day ROS ROS unable to do Vital Sign Vital Signs Vital Signs Date Time Temp Pulse Resp B/P (MAP) Pulse Ox O2 Delivery O2 Flow Rate FiO2 11/17/19 06:00 98 16 105/70 (82) 100 Ventilator 11/17/19 04:00 98.3 98.3 Physical Exam PHYSICAL EXAM GENERAL: Thin, cachectic male Intubated HEENT: Norm conj. ETT NECK: Supple, no lymphadenopathy. LUNGS: Decreased breath sounds at the bases, increased Resp rate HEART: S1, S2. tachy ABDOMEN: Distended, soft, nontender, fistula in place - bloody drainage, GJ tube in place. - [place] with 3 plus edema EXTREMITIES: Edema, no cyanosis.RLE IO - old site clean DERMATOLOGIC: Warm, dry. 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 NEUROLOGIC: unable to assess PSYCHIATRIC: Unable to assess DERMATOLOGIC: No generalized rash RIJ - clean. Labs Lab Laboratory Tests Test 11/16/19 08:00 11/17/19 05:00 O2 Saturation 97 % (92-99) Arterial Blood pH 7.49 (7.35-7.45) Arterial Blood pCO2 at Patient Temp 32 mmHg (35-46) Arterial Blood pO2 at Patient Temp 115 mmHg (75-108) Arterial Blood HCO3 24 mmol/L (21-28) Arterial Blood Base Excess 0 mmol/L (-3-3) FiO2 40% vent White Blood Count 36.4 x10^3/uL (4.0-11.0) Red Blood Count 2.64 x10^6/uL (4.30-5.70) Hemoglobin 7.4 g/dL (13.0-17.5) Hematocrit 22.1 % (39.0-53.0) Mean Corpuscular Volume 84 fL (79-100) Mean Corpuscular Hemoglobin 28 pg (25-35) Mean Corpuscular Hemoglobin Concent 33 g/dL (31-37) Red Cell Distribution Width 19.7 % (11.5-14.5) Platelet Count 168 x10^3/uL (140-400) Neutrophils (%) (Auto) 91 % (31-73) Lymphocytes (%) (Auto) 3 % (24-48) Monocytes (%) (Auto) 6 % (0-9) Eosinophils (%) (Auto) 0 % (0-3) Basophils (%) (Auto) 1 % (0-3) Neutrophils # (Auto) 33.1 x10^3/uL (1.8-7.7) Lymphocytes # (Auto) 0.9 x10^3/uL (1.0-4.8) Monocytes # (Auto) 2.1 x10^3/uL (0.0-1.1) Eosinophils # (Auto) 0.0 x10^3/uL (0.0-0.7) Basophils # (Auto) 0.2 x10^3/uL (0.0-0.2) Sodium Level 137 mmol/L (136-145) Potassium Level 4.1 mmol/L (3.5-5.1) Chloride Level 105 mmol/L (98-107) Carbon Dioxide Level 27 mmol/L (21-32) Anion Gap 5 (6-14) Blood Urea Nitrogen 16 mg/dL (8-26) Creatinine 1.1 mg/dL (0.7-1.3) Estimated GFR (Cockcroft-Gault) 86.1 Glucose Level 131 mg/dL (70-99) Calcium Level 6.8 mg/dL (8.5-10.1) Micro Microbiology 11/15/19 Gram Stain - Final, Resulted 11/15/19 Aerobic and Anaerobic Culture, Resulted Pending 11/14/19 Blood Culture - Preliminary, Resulted NO GROWTH AFTER 2 DAYS 11/14/19 Gram Stain Evaluation - Final, Complete 11/14/19 Respiratory Culture - Final, Complete 11/14/19 Antimicrobic Susceptibility - Final, Complete 11/07/19 Urine Culture - Final, Complete Objective Assessment Fever - better? PRBCs/seizures GNR bactermia 11/13 ID pend. Changed to Cefepime 11/14 with seizure 11/13 S/p IR abd drain 11/14 Kleb and Citrobacteri in sputum - sen pend Leukocytosis - seizures/abn CT scan/PRBCs - better today S/p Seizures 11/13 Elevated Troponin S/p IVC (actually in iliac) 11/13 Acute hypoxic resp failure intubated PEA Gj tube replaced 11/12 ? Loculated LL effusion on CT 11/12 Leukocytosis ? reactive 1. Bilateral lower extremity deep venous thrombosis 11/06 2. Clostridium difficile colitis 10/22 3. Leukocytosis with bandemia- better off abx 4. Left basilar pleural effusion and consolidation, chronic. 5. History of severe pancreatitis, status post exploratory laparotomy with pancreatic necrosectomy, cholecystotomy tube placement, gastrostomy tube placement, tracheostomy placement, five drains. Ascitic fluid drained status post tracheostomy recovered, history of hepatitis B during last admission in 07/2019. 6. Severe protein malnutrition Plan Plan of Care On Levophed - same Blood and sputum cults - pending 11/13 Began IV Flagyl/Vanc/ Cefepime 11/14 - cautious with dosing with seizure F/u labs/cults Await Gen surg f/u D/w nursing Critically ill KRISTIAN GOODMAN MD Nov 17, 2019 07:39
[2019-11-17 07:57] LABS: BASE EXCESS ABG 1 mmol/L (-3-3); HCO3 ABG 25 mmol/L (21-28); PCO2 ABG 35 mmHg (35-46); PO2 ABG 100 mmHg (75-108); SAT O2 ABG 97 % (92-99)
[2019-11-17 07:59] LABS: FIO2 ABG 40
[2019-11-17] MEDS: PANTOPRAZOLE IV PUSH 40 MG VIAL. IVP SCH ×2 (08:21→20:42)
[2019-11-17] MEDS: MICAFUNGIN 100 MG in IV DEXTROSE 5% 100ML 100 ML IV SCH (08:21)
[2019-11-17] MEDS: levETIRAcetam 1,000 MG in IV DEXTROSE 5% 100ML 100 ML IV SCH ×2 (08:21→21:29)
[2019-11-17] MEDS: LACTOBACILLUS RHAMNOSUS GG 1 CAPSULE. PO SCH ×2 (08:21→20:42)
[2019-11-17] MEDS: VANCOMYCIN 125 MG/2.5 ML ORAL SOLUTION. PO SCH ×4 (08:21→20:44)
[2019-11-17] MEDS: FERROUS SULFATE 325 MG TABLET. PO SCH ×2 (08:21→17:41)
--- NOTE | 2019-11-17 08:51 | PDOC ---
SURGICAL PROGRESS NOTE Subjective still no response off sedation--EEG today Vital Signs Vital Signs Date Time Temp Pulse Resp B/P (MAP) Pulse Ox O2 Delivery O2 Flow Rate FiO2 11/17/19 07:40 100 Ventilator 11/17/19 06:00 98 16 105/70 (82) 11/17/19 04:00 98.3 98.3 I&O Intake and Output 11/17/19 07:00 Intake Total 616 ml Output Total 2320 ml Balance -1704 ml Intake Oral 0 ml IV Total 616 ml Output Urine Total 2270 ml Drainage Total 50 ml # Voids 1 # Bowel Movements 3 General: Other (unresponsive ) Abdomen: Other (distended, drain in place) Labs Laboratory Tests Test 11/15/19 08:55 11/15/19 23:35 11/16/19 05:50 11/16/19 08:00 O2 Saturation 98 % (92-99) 97 % (92-99) Arterial Blood pH 7.43 (7.35-7.45) 7.49 (7.35-7.45) Arterial Blood pH (Temp corrected) 7.41 Arterial Blood pCO2 at Patient Temp 23 mmHg (35-46) 32 mmHg (35-46) Arterial Blood pCO2 (Temp correct) 25 mmHg Arterial Blood pO2 at Patient Temp 140 mmHg (75-108) 115 mmHg (75-108) Arterial Blood pO2 (Temp corrected) 149 mmHg Arterial Blood HCO3 15 mmol/L (21-28) 24 mmol/L (21-28) Arterial Blood Base Excess -8 mmol/L (-3-3) 0 mmol/L (-3-3) FiO2 45% vent 40% vent Vancomycin Level Trough 17.6 mcg/mL (10.0-20.0) Vancomycin Last Dose Date Vancomycin Last Dose Time 1200 White Blood Count 45.6 x10^3/uL (4.0-11.0) Red Blood Count 2.76 x10^6/uL (4.30-5.70) Hemoglobin 7.4 g/dL (13.0-17.5) Hematocrit 23.0 % (39.0-53.0) Mean Corpuscular Volume 83 fL (79-100) Mean Corpuscular Hemoglobin 27 pg (25-35) Mean Corpuscular Hemoglobin Concent 32 g/dL (31-37) Red Cell Distribution Width 19.5 % (11.5-14.5) Platelet Count 215 x10^3/uL (140-400) Neutrophils (%) (Auto) 94 % (31-73) Lymphocytes (%) (Auto) 2 % (24-48) Monocytes (%) (Auto) 4 % (0-9) Eosinophils (%) (Auto) 0 % (0-3) Basophils (%) (Auto) 0 % (0-3) Neutrophils # (Auto) 43.0 x10^3/uL (1.8-7.7) Lymphocytes # (Auto) 0.7 x10^3/uL (1.0-4.8) Monocytes # (Auto) 1.8 x10^3/uL (0.0-1.1) Eosinophils # (Auto) 0.0 x10^3/uL (0.0-0.7) Basophils # (Auto) 0.1 x10^3/uL (0.0-0.2) Sodium Level 134 mmol/L (136-145) Potassium Level 4.3 mmol/L (3.5-5.1) Chloride Level 103 mmol/L (98-107) Carbon Dioxide Level 25 mmol/L (21-32) Anion Gap 6 (6-14) Blood Urea Nitrogen 17 mg/dL (8-26) Creatinine 1.3 mg/dL (0.7-1.3) Estimated GFR (Cockcroft-Gault) 71.0 Glucose Level 110 mg/dL (70-99) Calcium Level 6.6 mg/dL (8.5-10.1) Test 11/17/19 05:00 11/17/19 07:40 White Blood Count 36.4 x10^3/uL (4.0-11.0) Red Blood Count 2.64 x10^6/uL (4.30-5.70) Hemoglobin 7.4 g/dL (13.0-17.5) Hematocrit 22.1 % (39.0-53.0) Mean Corpuscular Volume 84 fL (79-100) Mean Corpuscular Hemoglobin 28 pg (25-35) Mean Corpuscular Hemoglobin Concent 33 g/dL (31-37) Red Cell Distribution Width 19.7 % (11.5-14.5) Platelet Count 168 x10^3/uL (140-400) Neutrophils (%) (Auto) 91 % (31-73) Lymphocytes (%) (Auto) 3 % (24-48) Monocytes (%) (Auto) 6 % (0-9) Eosinophils (%) (Auto) 0 % (0-3) Basophils (%) (Auto) 1 % (0-3) Neutrophils # (Auto) 33.1 x10^3/uL (1.8-7.7) Lymphocytes # (Auto) 0.9 x10^3/uL (1.0-4.8) Monocytes # (Auto) 2.1 x10^3/uL (0.0-1.1) Eosinophils # (Auto) 0.0 x10^3/uL (0.0-0.7) Basophils # (Auto) 0.2 x10^3/uL (0.0-0.2) Sodium Level 137 mmol/L (136-145) Potassium Level 4.1 mmol/L (3.5-5.1) Chloride Level 105 mmol/L (98-107) Carbon Dioxide Level 27 mmol/L (21-32) Anion Gap 5 (6-14) Blood Urea Nitrogen 16 mg/dL (8-26) Creatinine 1.1 mg/dL (0.7-1.3) Estimated GFR (Cockcroft-Gault) 86.1 Glucose Level 131 mg/dL (70-99) Calcium Level 6.8 mg/dL (8.5-10.1) O2 Saturation 97 % (92-99) Arterial Blood pH 7.47 (7.35-7.45) Arterial Blood pCO2 at Patient Temp 35 mmHg (35-46) Arterial Blood pO2 at Patient Temp 100 mmHg (75-108) Arterial Blood HCO3 25 mmol/L (21-28) Arterial Blood Base Excess 1 mmol/L (-3-3) FiO2 40 Laboratory Tests Test 11/17/19 05:00 11/17/19 07:40 White Blood Count 36.4 x10^3/uL (4.0-11.0) Red Blood Count 2.64 x10^6/uL (4.30-5.70) Hemoglobin 7.4 g/dL (13.0-17.5) Hematocrit 22.1 % (39.0-53.0) Mean Corpuscular Volume 84 fL (79-100) Mean Corpuscular Hemoglobin 28 pg (25-35) Mean Corpuscular Hemoglobin Concent 33 g/dL (31-37) Red Cell Distribution Width 19.7 % (11.5-14.5) Platelet Count 168 x10^3/uL (140-400) Neutrophils (%) (Auto) 91 % (31-73) Lymphocytes (%) (Auto) 3 % (24-48) Monocytes (%) (Auto) 6 % (0-9) Eosinophils (%) (Auto) 0 % (0-3) Basophils (%) (Auto) 1 % (0-3) Neutrophils # (Auto) 33.1 x10^3/uL (1.8-7.7) Lymphocytes # (Auto) 0.9 x10^3/uL (1.0-4.8) Monocytes # (Auto) 2.1 x10^3/uL (0.0-1.1) Eosinophils # (Auto) 0.0 x10^3/uL (0.0-0.7) Basophils # (Auto) 0.2 x10^3/uL (0.0-0.2) Sodium Level 137 mmol/L (136-145) Potassium Level 4.1 mmol/L (3.5-5.1) Chloride Level 105 mmol/L (98-107) Carbon Dioxide Level 27 mmol/L (21-32) Anion Gap 5 (6-14) Blood Urea Nitrogen 16 mg/dL (8-26) Creatinine 1.1 mg/dL (0.7-1.3) Estimated GFR (Cockcroft-Gault) 86.1 Glucose Level 131 mg/dL (70-99) Calcium Level 6.8 mg/dL (8.5-10.1) O2 Saturation 97 % (92-99) Arterial Blood pH 7.47 (7.35-7.45) Arterial Blood pCO2 at Patient Temp 35 mmHg (35-46) Arterial Blood pO2 at Patient Temp 100 mmHg (75-108) Arterial Blood HCO3 25 mmol/L (21-28) Arterial Blood Base Excess 1 mmol/L (-3-3) FiO2 40 Assessment/Plan no surgical plans Justicifation of Admission Dx: Justifications for Admission: Justification of Admission Dx: Yes Comminuty Aquired Pneumonia: Med-High Risk Pt Sepsis: Infection MAXIMILIANO GREENBERG [employer] Nov 17, 2019 08:51
--- NOTE | 2019-11-17 09:24 | PDOC ---
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 Sedating medicines have been tapered. He is still on low-dose fentanyl which the nurse will presently stop. He may be a very slow metabolizer of the medications. Pancreatitis, respiratory failure, gastrointestinal hemorrhage while on anticoagulation. Plan Awake EEG Await repeat head CT I will discuss with family when the results are available. Subjective None Objective Vital Signs Date Time Temp Pulse Resp B/P (MAP) Pulse Ox O2 Delivery O2 Flow Rate FiO2 11/17/19 07:40 100 Ventilator 11/17/19 06:00 98 16 105/70 (82) 11/17/19 04:00 98.3 98.3 Intake and Output 11/17/19 07:00 Intake Total 616 ml Output Total 2320 ml Balance -1704 ml Intake Oral 0 ml IV Total 616 ml Output Urine Total 2270 ml Drainage Total 50 ml # Voids 1 # Bowel Movements 3 PHYSICAL EXAM Off sedation, intubated PERRL. EOMI, positive oculocephalic reflex. CN: no focal findings. Muscle tone: normal. Muscle strength: minimal movement to pain DTR: 1+ Plantar reflex: silent Gait: not examined in bed. Sensory exam: not cooperative. Cerebellar: not cooperative Review of Relevant I have reviewed the following items alexandra (where applicable) has been applied. Labs Laboratory Tests Test 11/15/19 23:35 11/16/19 05:50 11/16/19 08:00 11/17/19 05:00 Vancomycin Level Trough 17.6 mcg/mL (10.0-20.0) Vancomycin Last Dose Date Vancomycin Last Dose Time 1200 White Blood Count 45.6 x10^3/uL (4.0-11.0) 36.4 x10^3/uL (4.0-11.0) Red Blood Count 2.76 x10^6/uL (4.30-5.70) 2.64 x10^6/uL (4.30-5.70) Hemoglobin 7.4 g/dL (13.0-17.5) 7.4 g/dL (13.0-17.5) Hematocrit 23.0 % (39.0-53.0) 22.1 % (39.0-53.0) Mean Corpuscular Volume 83 fL (79-100) 84 fL (79-100) Mean Corpuscular Hemoglobin 27 pg (25-35) 28 pg (25-35) Mean Corpuscular Hemoglobin Concent 32 g/dL (31-37) 33 g/dL (31-37) Red Cell Distribution Width 19.5 % (11.5-14.5) 19.7 % (11.5-14.5) Platelet Count 215 x10^3/uL (140-400) 168 x10^3/uL (140-400) Neutrophils (%) (Auto) 94 % (31-73) 91 % (31-73) Lymphocytes (%) (Auto) 2 % (24-48) 3 % (24-48) Monocytes (%) (Auto) 4 % (0-9) 6 % (0-9) Eosinophils (%) (Auto) 0 % (0-3) 0 % (0-3) Basophils (%) (Auto) 0 % (0-3) 1 % (0-3) Neutrophils # (Auto) 43.0 x10^3/uL (1.8-7.7) 33.1 x10^3/uL (1.8-7.7) Lymphocytes # (Auto) 0.7 x10^3/uL (1.0-4.8) 0.9 x10^3/uL (1.0-4.8) Monocytes # (Auto) 1.8 x10^3/uL (0.0-1.1) 2.1 x10^3/uL (0.0-1.1) Eosinophils # (Auto) 0.0 x10^3/uL (0.0-0.7) 0.0 x10^3/uL (0.0-0.7) Basophils # (Auto) 0.1 x10^3/uL (0.0-0.2) 0.2 x10^3/uL (0.0-0.2) Sodium Level 134 mmol/L (136-145) 137 mmol/L (136-145) Potassium Level 4.3 mmol/L (3.5-5.1) 4.1 mmol/L (3.5-5.1) Chloride Level 103 mmol/L (98-107) 105 mmol/L (98-107) Carbon Dioxide Level 25 mmol/L (21-32) 27 mmol/L (21-32) Anion Gap 6 (6-14) 5 (6-14) Blood Urea Nitrogen 17 mg/dL (8-26) 16 mg/dL (8-26) Creatinine 1.3 mg/dL (0.7-1.3) 1.1 mg/dL (0.7-1.3) Estimated GFR (Cockcroft-Gault) 71.0 86.1 Glucose Level 110 mg/dL (70-99) 131 mg/dL (70-99) Calcium Level 6.6 mg/dL (8.5-10.1) 6.8 mg/dL (8.5-10.1) O2 Saturation 97 % (92-99) Arterial Blood pH 7.49 (7.35-7.45) Arterial Blood pCO2 at Patient Temp 32 mmHg (35-46) Arterial Blood pO2 at Patient Temp 115 mmHg (75-108) Arterial Blood HCO3 24 mmol/L (21-28) Arterial Blood Base Excess 0 mmol/L (-3-3) FiO2 40% vent Test 11/17/19 07:40 O2 Saturation 97 % (92-99) Arterial Blood pH 7.47 (7.35-7.45) Arterial Blood pCO2 at Patient Temp 35 mmHg (35-46) Arterial Blood pO2 at Patient Temp 100 mmHg (75-108) Arterial Blood HCO3 25 mmol/L (21-28) Arterial Blood Base Excess 1 mmol/L (-3-3) FiO2 40 Laboratory Tests Test 11/17/19 05:00 11/17/19 07:40 White Blood Count 36.4 x10^3/uL (4.0-11.0) Red Blood Count 2.64 x10^6/uL (4.30-5.70) Hemoglobin 7.4 g/dL (13.0-17.5) Hematocrit 22.1 % (39.0-53.0) Mean Corpuscular Volume 84 fL (79-100) Mean Corpuscular Hemoglobin 28 pg (25-35) Mean Corpuscular Hemoglobin Concent 33 g/dL (31-37) Red Cell Distribution Width 19.7 % (11.5-14.5) Platelet Count 168 x10^3/uL (140-400) Neutrophils (%) (Auto) 91 % (31-73) Lymphocytes (%) (Auto) 3 % (24-48) Monocytes (%) (Auto) 6 % (0-9) Eosinophils (%) (Auto) 0 % (0-3) Basophils (%) (Auto) 1 % (0-3) Neutrophils # (Auto) 33.1 x10^3/uL (1.8-7.7) Lymphocytes # (Auto) 0.9 x10^3/uL (1.0-4.8) Monocytes # (Auto) 2.1 x10^3/uL (0.0-1.1) Eosinophils # (Auto) 0.0 x10^3/uL (0.0-0.7) Basophils # (Auto) 0.2 x10^3/uL (0.0-0.2) Sodium Level 137 mmol/L (136-145) Potassium Level 4.1 mmol/L (3.5-5.1) Chloride Level 105 mmol/L (98-107) Carbon Dioxide Level 27 mmol/L (21-32) Anion Gap 5 (6-14) Blood Urea Nitrogen 16 mg/dL (8-26) Creatinine 1.1 mg/dL (0.7-1.3) Estimated GFR (Cockcroft-Gault) 86.1 Glucose Level 131 mg/dL (70-99) Calcium Level 6.8 mg/dL (8.5-10.1) O2 Saturation 97 % (92-99) Arterial Blood pH 7.47 (7.35-7.45) Arterial Blood pCO2 at Patient Temp 35 mmHg (35-46) Arterial Blood pO2 at Patient Temp 100 mmHg (75-108) Arterial Blood HCO3 25 mmol/L (21-28) Arterial Blood Base Excess 1 mmol/L (-3-3) FiO2 40 Microbiology 11/15/19 Gram Stain - Final, Resulted 11/15/19 Aerobic and Anaerobic Culture, Resulted Pending 11/14/19 Blood Culture - Preliminary, Resulted NO GROWTH AFTER 2 DAYS 11/14/19 Gram Stain Evaluation - Final, Complete 11/14/19 Respiratory Culture - Final, Complete 11/14/19 Antimicrobic Susceptibility - Final, Complete 11/07/19 Urine Culture - Final, Complete Medications Current Medications Ceftriaxone Sodium (Rocephin) 1 gm 1X ONCE IVP ; Start 11/08/19 at 00:00; Stop 11/08/19 at 01:23; Status DC Enoxaparin Sodium (Lovenox 80mg Syringe) 80 mg 1X ONCE SQ Last administered on 11/08/19at 02:43; Start 11/08/19 at 00:00; Stop 11/08/19 at 00:01; Status DC Ceftriaxone Sodium (Rocephin Im) 1 gm 1X ONCE IM Last administered on 11/08/19at 02:42; Start 11/08/19 at 01:45; Stop 11/08/19 at 01:46; Status DC Lorazepam (Ativan) 0.5 mg 1X ONCE PO Last administered on 11/08/19at 03:28; Start 11/08/19 at 03:15; Stop 11/08/19 at 03:16; Status DC Acetaminophen (Tylenol) 500 mg PRN Q6HRS PRN PO FEVER Last administered on 11/12/19at 04:36; Start 11/08/19 at 07:30 Alprazolam (Xanax) 0.5 mg HS PO Last administered on 11/11/19at 20:38; Start 11/08/19 at 21:00 Buspirone HCl (Buspar) 10 mg BIDACBL PO Last administered on 11/08/19at 10:54; Start 11/08/19 at 07:30; Stop 11/08/19 at 11:46; Status DC Ferrous Sulfate (Feosol) 325 mg BIDWMEALS PO Last administered on 11/17/19at 08:21; Start 11/08/19 at 08:00 Gabapentin (Neurontin) 100 mg TID PO Last administered on 11/08/19at 10:54; Start 11/08/19 at 09:00; Stop 11/08/19 at 11:46; Status DC Mirtazapine (Remeron) 15 mg QHS PO ; Start 11/08/19 at 21:00; Stop 11/08/19 at 17:19; Status DC Pantoprazole Sodium (Protonix) 40 mg DAILYAC PO Last administered on 11/15/19at 08:59; Start 11/08/19 at 08:00; Stop 11/15/19 at 12:56; Status DC Trazodone HCl (Desyrel) 50 mg QHS PO ; Start 11/08/19 at 21:00; Stop 11/08/19 at 17:19; Status DC Oxycodone HCl (Roxicodone) 15 mg PRN Q6HRS PRN PO PAIN Last administered on 11/13/19at 11:01; Start 11/08/19 at 07:45 Apixaban (Eliquis) 10 mg BID PO Last administered on 11/13/19at 21:32; Start 11/08/19 at 09:00; Stop 11/14/19 at 10:08; Status DC Apixaban (Eliquis) 5 mg BID PO ; Start 11/15/19 at 09:00; Stop 11/14/19 at 10:08; Status DC Info (Anti-Coagulation Monitoring By Pharmacy) 1 each PRN DAILY PRN MC SEE COMMENTS Last administered on 11/13/19at 15:20; Start 11/08/19 at 07:45 Vancomycin HCl (Vancomycin Oral Solution) 125 mg [id number] PO Last administered on 11/08/19at 20:48; Start 11/08/19 at 17:30; Stop 11/09/19 at 09:55; Status DC Vancomycin HCl (Vancomycin Oral Solution) 250 mg [id number] PO Last administered on 11/11/19at 20:38; Start 11/09/19 at 13:00; Stop 11/12/19 at 09:03; Status DC Lactobacillus Rhamnosus (Culturelle) 1 cap BID PO Last administered on 11/17/19at 08:21; Start 11/09/19 at 21:00 Piperacillin Sod/ Tazobactam Sod 3.375 gm/Sodium Chloride 50 ml @ 100 mls/hr Q6HRS IV Last administered on 11/10/19at 05:58; Start 11/09/19 at 18:00; Stop 11/10/19 at 11:45; Status DC Temazepam (Restoril) 15 mg PRN QHS PRN PO INSOMNIA Last administered on 11/12/19at 23:15; Start 11/12/19 at 09:00 Vancomycin HCl (Vancomycin Oral Solution) 125 mg [id number] PO Last administered on 11/17/19at 08:21; Start 11/12/19 at 10:00 Iohexol (Omnipaque 350 Mg/ml) 100 ml 1X ONCE IV Last administered on 11/13/19at 08:15; Start 11/13/19 at 08:15; Stop 11/13/19 at 08:22; Status DC Info (CONTRAST GIVEN -- Rx MONITORING) 1 each PRN DAILY PRN MC SEE COMMENTS; Start 11/13/19 at 08:30; Stop 11/13/19 at 09:04; Status DC Fentanyl Citrate (Fentanyl 2ml Vial) 100 mcg STK-MED ONCE .ROUTE ; Start 11/13/19 at 08:43; Stop 11/13/19 at 08:43; Status DC Iohexol (Omnipaque 240 Mg/ml) 50 ml STK-MED ONCE .ROUTE ; Start 11/13/19 at 08:45; Stop 11/13/19 at 08:46; Status DC Fentanyl Citrate (Fentanyl 2ml Vial) 50 mcg 1X ONCE IV Last administered on 11/13/19at 09:37; Start 11/13/19 at 09:00; Stop 11/13/19 at 09:03; Status DC Iohexol (Omnipaque 240 Mg/ml) 50 ml 1X ONCE PO Last administered on 11/13/19at 09:37; Start 11/13/19 at 09:00; Stop 11/13/19 at 09:03; Status DC Info (CONTRAST GIVEN -- Rx MONITORING) 1 each PRN DAILY PRN MC SEE COMMENTS; Start 11/13/19 at 09:15; Stop 11/15/19 at 09:14; Status DC Morphine Sulfate (Morphine Sulfate) 2 mg PRN Q2HR PRN IV PAIN Last administered on 11/13/19at 11:34; Start 11/13/19 at 11:30; Stop 11/13/19 at 13:53; Status DC Morphine Sulfate (Morphine Sulfate) 4 mg PRN Q2HR PRN IVP MODERATE TO SEVERE PAIN Last administered on 11/14/19at 08:16; Start 11/13/19 at 14:00 Ondansetron HCl (Zofran) 4 mg PRN Q6HRS PRN IVP NAUSEA/VOMITING Last administered on 11/14/19at 00:13; Start 11/13/19 at 19:30 Dextrose (Dextrose 50%-Water Syringe) 25 gm STK-MED ONCE IV ; Start 11/14/19 at 07:28; Stop 11/14/19 at 07:28; Status DC Epinephrine HCl 5 mg/Sodium Chloride 255 ml @ 23.47 mls/ hr 1X ONCE IV ; Start 11/14/19 at 08:00; Stop 11/14/19 at 18:51; Status DC Fentanyl Citrate 30 ml @ 0 mls/hr CONT PRN IV SEE PROTOCOL Last administered on 11/16/19at 12:15; Start 11/14/19 at 08:15 Propofol 100 ml @ 0 mls/hr CONT PRN IV SEE PROTOCOL; Start 11/14/19 at 08:15 Midazolam HCl 100 ml @ 0 mls/hr CONT PRN IV SEE PROTOCOL Last administered on 11/15/19at 08:36; Start 11/14/19 at 08:15 Meropenem 500 mg/ Sodium Chloride 50 ml @ 100 mls/hr Q6HRS IV Last administered on 11/15/19at 05:29; Start 11/14/19 at 12:00; Stop 11/15/19 at 06:10; Status DC Vancomycin HCl (Vanco Per Pharmacy) 1 each PRN DAILY PRN MC SEE COMMENTS Last administered on 11/16/19at 10:42; Start 11/14/19 at 09:00 Metronidazole 100 ml @ 100 mls/hr Q8HRS IV Last administered on 11/17/19at 05:56; Start 11/14/19 at 12:00 Micafungin Sodium 100 mg/Dextrose 100 ml @ 100 mls/hr Q24H IV Last administered on 11/17/19at 08:21; Start 11/14/19 at 09:00 Metronidazole 100 ml @ 100 mls/hr Q8HRS IV ; Start 11/14/19 at 09:05; Stop 11/14/19 at 13:38; Status DC Vancomycin HCl 2 gm/Sodium Chloride 500 ml @ 250 mls/hr 1X ONCE IV Last administered on 11/14/19at 12:04; Start 11/14/19 at 10:00; Stop 11/14/19 at 11:59; Status DC Norepinephrine Bitartrate 8 mg/ Dextrose 258 ml @ 14.841 mls/ hr CONT PRN IV PER PROTOCOL Last administered on 11/16/19at 21:56; Start 11/14/19 at 09:30 Heparin Sodium/ Dextrose 250 ml @ 9.2 mls/hr CONT PRN IV PER PROTOCOL; Start 11/14/19 at 10:00; Stop 11/14/19 at 16:18; Status DC Heparin Sodium (Porcine) (Heparin Sodium) 1,900 unit PRN Q6HRS PRN IV FOR UFH LEVEL LESS THAN 0.2; Start 11/14/19 at 10:00; Stop 11/14/19 at 16:18; Status DC Heparin Sodium (Porcine) (Heparin Sodium) 4,000 unit 1X ONCE IV ; Start 11/14/19 at 10:00; Stop 11/14/19 at 16:18; Status DC Aspirin (Woodrow Aspirin) 325 mg 1X ONCE JT ; Start 11/14/19 at 10:30; Stop 11/14/19 at 16:18; Status DC Sodium Chloride 1,000 ml @ 500 mls/hr Q2H IV Last administered on 11/14/19at 13:31; Start 11/14/19 at 11:30; Stop 11/14/19 at 15:29; Status DC Lidocaine HCl (Buffered Lidocaine 1%) 3 ml STK-MED ONCE .ROUTE ; Start 11/14/19 at 15:06; Stop 11/14/19 at 15:07; Status DC Iohexol (Omnipaque 240 Mg/ml) 50 ml STK-MED ONCE .ROUTE ; Start 11/14/19 at 15:06; Stop 11/14/19 at 15:07; Status DC Lidocaine HCl (Buffered Lidocaine 1%) 6 ml 1X ONCE INJ Last administered on 11/14/19at 16:51; Start 11/14/19 at 16:15; Stop 11/14/19 at 16:16; Status DC Iohexol (Omnipaque 240 Mg/ml) 50 ml 1X ONCE IJ Last administered on 11/14/19at 16:52; Start 11/14/19 at 16:15; Stop 11/14/19 at 16:16; Status DC Iohexol (Omnipaque 240 Mg/ml) 50 ml STK-MED ONCE .ROUTE ; Start 11/14/19 at 16:09; Stop 11/14/19 at 16:09; Status DC Levetiracetam 1000 mg/Dextrose 110 ml @ 440 mls/hr 1X ONCE IV Last administered on 11/14/19at 17:09; Start 11/14/19 at 16:15; Stop 11/14/19 at 16:29; Status DC Levetiracetam 500 mg/Dextrose 105 ml @ 420 mls/hr Q12HR IV Last administered on 11/14/19at 20:55; Start 11/14/19 at 21:00; Stop 11/14/19 at 21:56; Status DC Iohexol (Omnipaque 240 Mg/ml) 50 ml STK-MED ONCE .ROUTE ; Start 11/14/19 at 16:14; Stop 11/14/19 at 16:15; Status DC Vancomycin HCl 1.25 gm/Sodium Chloride 250 ml @ 167 mls/hr Q12H IV Last ad ministered on 11/16/19at 23:42; Start 11/15/19 at 00:01 Vancomycin HCl (Vancomycin Trough Level) 1 each 1X ONCE MC Last administered on 11/15/19at 23:30; Start 11/15/19 at 23:30; Stop 11/15/19 at 23:31; Status DC Heparin Sodium/ Sodium Chloride 500 ml @ As Directed STK-MED ONCE .ROUTE ; Start 11/14/19 at 16:41; Stop 11/14/19 at 16:41; Status DC Heparin Sodium/ Sodium Chloride (HEPARIN for ARTERIAL LINE FLUSH) 1,000 unit 1X ONCE IV Last administered on 11/14/19at 16:54; Start 11/14/19 at 17:00; Stop 11/14/19 at 17:01; Status DC Levetiracetam 500 mg/Dextrose 105 ml @ 420 mls/hr 1X ONCE IV Last administered on 11/14/19at 22:02; Start 11/14/19 at 22:30; Stop 11/14/19 at 22:44; Status DC Levetiracetam 1000 mg/Dextrose 110 ml @ 440 mls/hr Q12HR IV Last administered on 11/17/19at 08:21; Start 11/15/19 at 09:00 Valproic Acid 1000 mg/Dextrose 60 ml @ 55 mls/hr 1X ONCE IV Last administered on 11/14/19at 23:01; Start 11/14/19 at 23:00; Stop 11/15/19 at 00:05; Status DC Valproic Acid 500 mg/Dextrose 55 ml @ 55 mls/hr Q8HRS IV Last administered on 11/17/19at 05:54; Start 11/15/19 at 06:00 Acetaminophen (Tylenol) 650 mg PRN Q6HRS PRN PEG MILD PAIN/TEMP > 100.3'F Last administered on 11/15/19at 04:33; Start 11/15/19 at 04:15 Cefepime HCl (Maxipime) 1 gm Q8HRS IVP Last administered on 11/17/19at 05:56; Start 11/15/19 at 07:00 Sodium Bicarbonate (Sodium Bicarb Adult 8.4% Syr) 50 meq 1X ONCE IV Last admi nistered on 11/15/19at 10:16; Start 11/15/19 at 10:15; Stop 11/15/19 at 10:16; Status DC Lidocaine HCl (Buffered Lidocaine 1%) 3 ml STK-MED ONCE .ROUTE ; Start 11/15/19 at 12:38; Stop 11/15/19 at 12:38; Status DC Pantoprazole Sodium (PROTONIX VIAL for IV PUSH) 40 mg DAILYAC IVP Last administered on 11/16/19at 07:58; Start 11/16/19 at 07:30; Stop 11/16/19 at 11:59; Status DC Lidocaine HCl (Buffered Lidocaine 1%) 6 ml 1X ONCE INJ Last administered on 11/15/19at 14:15; Start 11/15/19 at 14:15; Stop 11/15/19 at 14:20; Status DC Pantoprazole Sodium (PROTONIX VIAL for IV PUSH) 40 mg BID IVP Last administered on 11/17/19at 08:21; Start 11/16/19 at 21:00 Dextrose (Dextrose 50%-Water Syringe) 25 gm STK-MED ONCE IV ; Start 11/14/19 at 07:30; Stop 11/17/19 at 09:05; Status DC Active Scripts Active Oxycodone Hcl Immed.release (Oxycodone Hcl) 15 Mg Tablet 15 Mg PO PRN Q6HRS PRN 5 Days Reported Remeron (Mirtazapine) 15 Mg Tablet 1 Tab PO QHS Buspirone Hcl 10 Mg Tablet 1 Tab PO BIDACBL Alprazolam 0.5 Mg Tablet 1 Tab PO HS Acetaminophen 500 Mg Tablet 1 Tab PO PRN Q6HRS PRN 15 Days Ferrous Sulfate 325 Mg Tablet 65 Mg PO BID Pantoprazole Sodium (Pantoprazole Sodium) 40 Mg Tablet.dr 40 Mg PO DAILYAC Trazodone Hcl 50 Mg Tablet 1 Tab PO QHS Gabapentin (Gabapentin) 100 Mg Capsule 100 Mg PO TID Vitals/I & O Vital Sign - Last 24 Hours 11/16/19 11/16/19 11/16/19 11/16/19 09:44 10:00 11:00 11:25 Pulse 108 110 Resp 16 18 B/P (MAP) 107/67 (80) 100/67 (78) Pulse Ox 100 100 100 100 O2 Delivery Ventilator Ventilator Ventilator Ventilator 11/16/19 11/16/19 11/16/19 11/16/19 12:00 12:00 12:15 12:45 Temp 98.4 98.4 Pulse 108 Resp 20 B/P (MAP) 114/70 (85) Pulse Ox 100 100 100 O2 Delivery Mechanical Ventilator Ventilator 11/16/19 11/16/19 11/16/19 11/16/19 13:00 13:00 14:00 15:00 Pulse 114 122 118 Resp 17 16 16 B/P (MAP) 107/70 (82) 132/88 (103) 118/77 (91) Pulse Ox 100 100 100 100 O2 Delivery Ventilator Ventilator Ventilator Ventilator 11/16/19 11/16/19 11/16/19 11/16/19 15:35 16:00 16:00 17:00 Temp 98.0 98.0 Pulse 116 112 Resp 18 16 B/P (MAP) 113/73 (86) 112/76 (88) Pulse Ox 100 100 100 O2 Delivery Ventilator Ventilator Mechanical Ventilator Ventilator 11/16/19 11/16/19 11/16/19 11/16/19 17:11 18:00 19:00 20:00 Pulse 110 110 Resp 16 16 B/P (MAP) 107/80 (89) 108/77 (87) Pulse Ox 100 100 100 O2 Delivery Ventilator Ventilator Ventilator Mechanical Ventilator 11/16/19 11/16/19 11/16/19 11/16/19 20:00 20:24 21:00 22:00 Temp 98.3 98.3 Pulse 112 105 104 Resp 16 16 16 B/P (MAP) 116/83 (94) 98/64 (75) 107/71 (83) Pulse Ox 100 100 100 100 O2 Delivery Ventilator Ventilator Ventilator Ventilator 11/16/19 11/16/19 11/17/19 11/17/19 22:13 23:00 00:00 00:01 Temp 98.4 98.4 Pulse 104 105 Resp 16 16 B/P (MAP) 110/66 (81) 110/69 (83) Pulse Ox 100 100 100 O2 Delivery Ventilator Ventilator Mechanical Ventilator Ventilator 11/17/19 11/17/19 11/17/19 11/17/19 00:07 00:15 01:00 01:45 Pulse 104 101 Resp 16 B/P (MAP) 107/63 (78) 105/78 (87) 111/75 (87) Pulse Ox 100 100 O2 Delivery Ventilator Ventilator 11/17/19 11/17/19 11/17/19 11/17/19 02:05 03:00 03:35 04:00 Pulse 99 Resp 16 B/P (MAP) 98/65 (76) Pulse Ox 100 100 100 O2 Delivery Ventilator Ventilator Ventilator Mechanical Ventilator 11/17/19 11/17/19 11/17/19 11/17/19 04:00 05:00 05:32 06:00 Temp 98.3 98.3 Pulse 98 95 98 Resp 16 16 16 B/P (MAP) 103/68 (80) 90/65 (73) 105/70 (82) Pulse Ox 100 100 100 100 O2 Delivery Ventilator Ventilator Ventilator Ventilator 11/17/19 07:40 Pulse Ox 100 O2 Delivery Ventilator Intake and Output 11/16/19 11/16/19 11/17/19 15:00 23:00 07:00 Intake Total 0 ml 0 ml 616 ml Output Total 880 ml 1085 ml 355 ml Balance -880 ml -1085 ml 261 ml Justicifation of Admission Dx: Justifications for Admission: Justification of Admission Dx: Yes Comminuty Aquired Pneumonia: Med-High Risk Pt Sepsis: Infection CHRISTOPHER CARL MD Nov 17, 2019 09:24
[2019-11-17] MEDS: VANCOMYCIN PER PHARMACY MC PRN ×3 (09:26→09:32)
--- NOTE | 2019-11-17 09:29 | PDOC ---
[facility] [facility] PROGRESS NOTE Chief Complaint Chief Complaint Sepsis, present on admission - 2/2 c difficile. Acute Hypoxic respiratory Failure 2/2 cardiac arrest-- now requiring mechanical ventilation S/P Cardiac arrest unknown etiology, possible seizure Acute GI bleed, unknown source suspect C. difficile colitis possible ischemic colitis Status post CT-guided abscess drain placement 11/15/2019 Bilateral DVT Neutropenia and bandemia, recent C. diff infection Toxic encephalopathy secondary to medication, currently resolved Diarrhea. Recurrent C. diff? C. diff Diarrhea on last hospital stay, completed a 10 day course of antibiotics. H/o recent Severe pancreatitis s/p ex-lap with pancreatic necrosectomy, cholecystostomy tube placement, gastrostomy tube placement, tracheostomy placement, 5 drains, 1.5L ascites drained - likely gallstone Status post tracheostomy - reversed, recovered Severe protein calorie malnutrition - started G-tube feeds Physical deconditioning - PT OT followed History of Hepatitis B J tube replaced by IR during last hospitalization but tolerating TFs at night well. Hemoglobin in the afternoon, type and cross 2 units PRBC pending Hold heparin drip due to GI bleed Pending cardiology, pulmonary, ID, neuro evaluation. Change Keppra to 1000 mg IV twice daily and Depacon 500 mg every 8 per ID. Okay with Versed drip Appreciate surgery recommendations, pending review of CT scan medical versus surgical management Hold DVT prophylaxis Protonix GI prophylaxis Patient is intubated and sedated Full code Discussed with RN and SW Dispo surgery is contraindicated at this time. Surrogate decision maker is Deacon Mata phone: [phone] Total critical care time spent is 45 minutes History of Present Illness History of Present Illness Mr Mata is a 49-year-old gentleman with past medical history of GERD pancreatitis history of DVT who comes to the emergency department complaining of bilateral leg swelling. At the time of my visit the patient is lying in bed in no apparent distress, he seems to be had of hearing, he is not offering many details about the story and we were asked to admit due to results of Doppler ultrasound revealing bilateral DVTs. Apparently the patient had been on Coumadin before it is unclear at this point if the patient has been taking Coumadin prior to this visit to the emergency department. Patient denies any headaches no blurred vision no strokelike symptoms no chest pain palpitations no shortness of breath has been reported. Patient denies abdominal pain no nausea vomiting or diarrhea. The patient certainly complains of discomfort over his bilateral extremities due to the edema. No other complaints were voiced, plan of care has been explained detail to the patient. Later in the day visited with nursing staff letting her concerned that patient may be having excessive sedation from his home medications that include trazodone and Remeron. Will place this on hold I have discussed this with nursing staff 11/08: Patient with recent admission to the hospital for C. difficile and still having diarrhea he had a significant bandemia which could be a consequence of ongoing C. difficile infection. 11/11: Ostomy in RUQ and PEG tube in LUQ, In bed, in NAD, eating breakfast PO, Complaining of abdominal pain and insomnia 11/12: Discussed with via phone call 11/13: Patient is sedated and intubated. S/P cardiac arrest with 3 rounds of CPR and EPI/ bicarb, transferred to ICU. 11/14: Patient did have large volume lower GI bleed with about 300 cc. Status post 2 units PRBCs. Patient's chart, labs, images were reviewed and discussed with RN 11/15: Patient seen and examined at bedside. Patient continues to have rectal bleeding with clots. Seen and examined. Afebrile. intubated, continues to have bloody stools. On levophed. Not awakening off sedation, plans for EEG and CT head today. Vitals/I&O Vitals/I&O: Vital Signs Date Time Temp Pulse Resp B/P (MAP) Pulse Ox O2 Delivery O2 Flow Rate FiO2 11/17/19 07:40 100 Ventilator 11/17/19 06:00 98 16 105/70 (82) 11/17/19 04:00 98.3 98.3 I & O 11/16/19 11/16/19 11/17/19 15:00 23:00 07:00 Intake Total 0 ml 0 ml 616 ml Output Total 880 ml 1085 ml 355 ml Balance -880 ml -1085 ml 261 ml Physical Exam Physical Exam: GENERAL: Thin, cachectic male Intubated HEENT: Norm conj. ETT NECK: Supple, no lymphadenopathy. LUNGS: Decreased breath sounds at the bases, increased Resp rate HEART: S1, S2. tachy ABDOMEN: Distended, soft, nontender, fistula in place - bloody drainage, GJ tube in place. - [place] with 3 plus edema EXTREMITIES: Edema, no cyanosis.RLE IO - old site clean DERMATOLOGIC: Warm, dry. 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 NEUROLOGIC: unable to assess PSYCHIATRIC: Unable to assess DERMATOLOGIC: No generalized rash RIJ - clean. General: Other (unresponsive ) Heart: Regular rate (sinus tach) Lungs: Other (decreased BLL) Abdomen: Other (distended, drain in place) Extremities: No cyanosis Skin: No rashes, No significant lesion Labs Labs: Laboratory Tests Test 11/17/19 05:00 11/17/19 07:40 White Blood Count 36.4 x10^3/uL (4.0-11.0) Red Blood Count 2.64 x10^6/uL (4.30-5.70) Hemoglobin 7.4 g/dL (13.0-17.5) Hematocrit 22.1 % (39.0-53.0) Mean Corpuscular Volume 84 fL (79-100) Mean Corpuscular Hemoglobin 28 pg (25-35) Mean Corpuscular Hemoglobin Concent 33 g/dL (31-37) Red Cell Distribution Width 19.7 % (11.5-14.5) Platelet Count 168 x10^3/uL (140-400) Neutrophils (%) (Auto) 91 % (31-73) Lymphocytes (%) (Auto) 3 % (24-48) Monocytes (%) (Auto) 6 % (0-9) Eosinophils (%) (Auto) 0 % (0-3) Basophils (%) (Auto) 1 % (0-3) Neutrophils # (Auto) 33.1 x10^3/uL (1.8-7.7) Lymphocytes # (Auto) 0.9 x10^3/uL (1.0-4.8) Monocytes # (Auto) 2.1 x10^3/uL (0.0-1.1) Eosinophils # (Auto) 0.0 x10^3/uL (0.0-0.7) Basophils # (Auto) 0.2 x10^3/uL (0.0-0.2) Sodium Level 137 mmol/L (136-145) Potassium Level 4.1 mmol/L (3.5-5.1) Chloride Level 105 mmol/L (98-107) Carbon Dioxide Level 27 mmol/L (21-32) Anion Gap 5 (6-14) Blood Urea Nitrogen 16 mg/dL (8-26) Creatinine 1.1 mg/dL (0.7-1.3) Estimated GFR (Cockcroft-Gault) 86.1 Glucose Level 131 mg/dL (70-99) Calcium Level 6.8 mg/dL (8.5-10.1) O2 Saturation 97 % (92-99) Arterial Blood pH 7.47 (7.35-7.45) Arterial Blood pCO2 at Patient Temp 35 mmHg (35-46) Arterial Blood pO2 at Patient Temp 100 mmHg (75-108) Arterial Blood HCO3 25 mmol/L (21-28) Arterial Blood Base Excess 1 mmol/L (-3-3) FiO2 40 Comment Review of Relevant I have reviewed the following items alexandra (where applicable) has been applied. Medications: Current Medications Medications (Trade) Dose Ordered Sig/Jesse Route PRN Reason Start Time Stop Time Status Last Admin Dose Admin Pantoprazole Sodium (PROTONIX VIAL for IV PUSH) 40 mg BID IVP 11/16/19 21:00 11/17/19 08:21 Justicifation of Admission Dx: Justifications for Admission: Justification of Admission Dx: Yes Comminuty Aquired Pneumonia: Med-High Risk Pt Sepsis: Infection JUAN ANTONIO OWUSU MD Nov 17, 2019 09:29
--- NOTE | 2019-11-17 10:33 | PDOC ---
PULMONARY PROGRESS NOTES Subjective S/P cardiac arrest with 3 rounds of CPR and EPI/ bicarb 11/13, intubated, continues to have bloody stools On levophed seizures post arrest suspected abrain anoxia s/p IVC filter for DVT and GI bleed/ No PE Vitals Vital Signs Date Time Temp Pulse Resp B/P (MAP) Pulse Ox O2 Delivery O2 Flow Rate FiO2 11/17/19 10:00 102 16 106/74 (85) 100 Ventilator 11/17/19 08:00 97.7 97.7 Comments unable to obtain intubated HEENT: Other (nc at perrl nose clear orally intubated neck no lad no thyromegaly) Lungs: Other (decreased BLL) Cardiovascular: S1, S2 Abdomen: Other (less distended doft deminished bs) Extremities: Other (+ edema) Skin: Warm Labs Laboratory Tests Test 11/15/19 23:35 11/16/19 05:50 11/16/19 08:00 11/17/19 05:00 Vancomycin Level Trough 17.6 mcg/mL (10.0-20.0) Vancomycin Last Dose Date Vancomycin Last Dose Time 1200 White Blood Count 45.6 x10^3/uL (4.0-11.0) 36.4 x10^3/uL (4.0-11.0) Red Blood Count 2.76 x10^6/uL (4.30-5.70) 2.64 x10^6/uL (4.30-5.70) Hemoglobin 7.4 g/dL (13.0-17.5) 7.4 g/dL (13.0-17.5) Hematocrit 23.0 % (39.0-53.0) 22.1 % (39.0-53.0) Mean Corpuscular Volume 83 fL (79-100) 84 fL (79-100) Mean Corpuscular Hemoglobin 27 pg (25-35) 28 pg (25-35) Mean Corpuscular Hemoglobin Concent 32 g/dL (31-37) 33 g/dL (31-37) Red Cell Distribution Width 19.5 % (11.5-14.5) 19.7 % (11.5-14.5) Platelet Count 215 x10^3/uL (140-400) 168 x10^3/uL (140-400) Neutrophils (%) (Auto) 94 % (31-73) 91 % (31-73) Lymphocytes (%) (Auto) 2 % (24-48) 3 % (24-48) Monocytes (%) (Auto) 4 % (0-9) 6 % (0-9) Eosinophils (%) (Auto) 0 % (0-3) 0 % (0-3) Basophils (%) (Auto) 0 % (0-3) 1 % (0-3) Neutrophils # (Auto) 43.0 x10^3/uL (1.8-7.7) 33.1 x10^3/uL (1.8-7.7) Lymphocytes # (Auto) 0.7 x10^3/uL (1.0-4.8) 0.9 x10^3/uL (1.0-4.8) Monocytes # (Auto) 1.8 x10^3/uL (0.0-1.1) 2.1 x10^3/uL (0.0-1.1) Eosinophils # (Auto) 0.0 x10^3/uL (0.0-0.7) 0.0 x10^3/uL (0.0-0.7) Basophils # (Auto) 0.1 x10^3/uL (0.0-0.2) 0.2 x10^3/uL (0.0-0.2) Sodium Level 134 mmol/L (136-145) 137 mmol/L (136-145) Potassium Level 4.3 mmol/L (3.5-5.1) 4.1 mmol/L (3.5-5.1) Chloride Level 103 mmol/L (98-107) 105 mmol/L (98-107) Carbon Dioxide Level 25 mmol/L (21-32) 27 mmol/L (21-32) Anion Gap 6 (6-14) 5 (6-14) Blood Urea Nitrogen 17 mg/dL (8-26) 16 mg/dL (8-26) Creatinine 1.3 mg/dL (0.7-1.3) 1.1 mg/dL (0.7-1.3) Estimated GFR (Cockcroft-Gault) 71.0 86.1 Glucose Level 110 mg/dL (70-99) 131 mg/dL (70-99) Calcium Level 6.6 mg/dL (8.5-10.1) 6.8 mg/dL (8.5-10.1) O2 Saturation 97 % (92-99) Arterial Blood pH 7.49 (7.35-7.45) Arterial Blood pCO2 at Patient Temp 32 mmHg (35-46) Arterial Blood pO2 at Patient Temp 115 mmHg (75-108) Arterial Blood HCO3 24 mmol/L (21-28) Arterial Blood Base Excess 0 mmol/L (-3-3) FiO2 40% vent Test 11/17/19 07:40 O2 Saturation 97 % (92-99) Arterial Blood pH 7.47 (7.35-7.45) Arterial Blood pCO2 at Patient Temp 35 mmHg (35-46) Arterial Blood pO2 at Patient Temp 100 mmHg (75-108) Arterial Blood HCO3 25 mmol/L (21-28) Arterial Blood Base Excess 1 mmol/L (-3-3) FiO2 40 Laboratory Tests Test 11/17/19 05:00 11/17/19 07:40 White Blood Count 36.4 x10^3/uL (4.0-11.0) Red Blood Count 2.64 x10^6/uL (4.30-5.70) Hemoglobin 7.4 g/dL (13.0-17.5) Hematocrit 22.1 % (39.0-53.0) Mean Corpuscular Volume 84 fL (79-100) Mean Corpuscular Hemoglobin 28 pg (25-35) Mean Corpuscular Hemoglobin Concent 33 g/dL (31-37) Red Cell Distribution Width 19.7 % (11.5-14.5) Platelet Count 168 x10^3/uL (140-400) Neutrophils (%) (Auto) 91 % (31-73) Lymphocytes (%) (Auto) 3 % (24-48) Monocytes (%) (Auto) 6 % (0-9) Eosinophils (%) (Auto) 0 % (0-3) Basophils (%) (Auto) 1 % (0-3) Neutrophils # (Auto) 33.1 x10^3/uL (1.8-7.7) Lymphocytes # (Auto) 0.9 x10^3/uL (1.0-4.8) Monocytes # (Auto) 2.1 x10^3/uL (0.0-1.1) Eosinophils # (Auto) 0.0 x10^3/uL (0.0-0.7) Basophils # (Auto) 0.2 x10^3/uL (0.0-0.2) Sodium Level 137 mmol/L (136-145) Potassium Level 4.1 mmol/L (3.5-5.1) Chloride Level 105 mmol/L (98-107) Carbon Dioxide Level 27 mmol/L (21-32) Anion Gap 5 (6-14) Blood Urea Nitrogen 16 mg/dL (8-26) Creatinine 1.1 mg/dL (0.7-1.3) Estimated GFR (Cockcroft-Gault) 86.1 Glucose Level 131 mg/dL (70-99) Calcium Level 6.8 mg/dL (8.5-10.1) O2 Saturation 97 % (92-99) Arterial Blood pH 7.47 (7.35-7.45) Arterial Blood pCO2 at Patient Temp 35 mmHg (35-46) Arterial Blood pO2 at Patient Temp 100 mmHg (75-108) Arterial Blood HCO3 25 mmol/L (21-28) Arterial Blood Base Excess 1 mmol/L (-3-3) FiO2 40 Medications Active Scripts Medications Dose Route/Sig Max Daily Dose Days Date Category Remeron (Mirtazapine) 15 Mg Tablet 1 Tab PO QHS 11/01/19 Reported Oxycodone Hcl Immed.release (Oxycodone Hcl) 15 Mg Tablet 15 Mg PO PRN Q6HRS PRN 5 10/31/19 Rx Buspirone Hcl 10 Mg Tablet 1 Tab PO BIDACBL 10/21/19 Reported Alprazolam 0.5 Mg Tablet 1 Tab PO HS 10/16/19 Reported Acetaminophen 500 Mg Tablet 1 Tab PO PRN Q6HRS PRN 15 10/16/19 Reported Ferrous Sulfate 325 Mg Tablet 65 Mg PO BID 10/16/19 Reported Pantoprazole Sodium (Pantoprazole Sodium) 40 Mg Tablet.dr 40 Mg PO DAILYAC 08/15/19 Reported Trazodone Hcl 50 Mg Tablet 1 Tab PO QHS 08/15/19 Reported Gabapentin (Gabapentin) 100 Mg Capsule 100 Mg PO TID 08/15/[address] of abd and pelvis 1. Gas containing fluid collection replacing the pancreas, with an intact of gas extending to the skin surface in the right upper quadrant abdomen. Findings suspicious for an abscess either related to pancreatic necrosis or complication of pancreatectomy. Correlate clinically. 2. Moderate amount of ascites and mesenteric edema with abdominal distention and severe hepatic steatosis. Correlate clinically for any evidence of hypoperfusion injury or ischemia. 3. Foci of gas in the left upper quadrant abdomen are new in the presence of a percutaneous gastrostomy tube. Correlate for any history of recent instrumentation. A contained bowel perforation can yield this appearance. echo reviewed There is moderate concentric left ventricular hypertrophy. The left ventricular systolic function is normal and the ejection fraction is within normal range. The Ejection Fraction is 60-65%. There is normal LV segmental wall motion. The right ventricle is mildly to moderately dilated. Impression . IMPRESSION: 1.Acute Hypoxic respiratory Failure 2/2 cardiac arrest-- now requiring mechanical ventilation 2.S/P Cardiac arrest, ? Etiology. likely septic shock, pancreatic bed adscess, ? Narcotics contribution 3. Suspect Brain anoxia. Not responsive, off sedation. Seizures post arrest.ct head initially neg for SDH 4..Lower extremity edema secondary to lower extremity deep venous thrombosis with no evidence of pulmonary embolism. Risk factor for deep venous thrombosis is immobilization. s/p IVC filter and AC withheld due to anemia and GI bleed. 5. The patient with gallstone pancreatitis in May. He is status post exploratory laparotomy with pancreatic necrosectomy, history of gastrostomy tube placement. septic shock on pressors 6. History of respiratory failure, status post tracheostomy and subsequent decannulation. 7. History of hepatitis B. 8. History of renal failure, on hemodialysis in the past and subsequently renal function with return back to normal. 9. Clostridium difficile colitis. 10. Pancreatic Bed Abscess, GI and Surgery following. 11. CT with LLL mass like density related to fluid collection/ pseudo tumor 12. GI Bleeding 13. seizures Plan . RECOMMENDATIONS: continue current vent support, setting reviewed, ABG reviewed, will make adjustments as needed remains unresponsive off sedation, has + cough, spontaneous breathing, and gag-- repeat CT head this am, EEG and follow neurology recommendations s/p drain for Pancreatic Bed Abscess 0n 11/14 ECHO reviewed and consult to cardiology follow recs ABX per ID follow surgery recs-- S/P J-tube placement with IR on 11/12 Vasopressors to keep MAP greater than 60 Patient with GI bleed . Hb 6.4. heparin dced. s/p IVC filter 11/13.Monitor HGB, s/p prbc 2 unints on 11/13, transfuse as needed for HGb less than 7 --- follow GI recommendations GI PPX: protonix to bid Discussed with RN and RT Total critical care time 30 minutes coordinating care and reviewing diagnostics critically ill TAYA PEREIRA MD Nov 17, 2019 10:33
--- NOTE | 2019-11-17 10:49 | PDOC ---
Objective: Objective: D/w nurse - notes blood in stools, plans for EEG and CT head today - off s edation, not waking up. On IV PPI, PO vanco and iron through OG tube. Vital Signs: Vital Signs Date Time Temp Pulse Resp B/P (MAP) Pulse Ox O2 Delivery O2 Flow Rate FiO2 11/17/19 10:00 102 16 106/74 (85) 100 Ventilator 11/17/19 08:00 97.7 97.7 Labs: Laboratory Tests Test 11/17/19 05:00 11/17/19 07:40 White Blood Count 36.4 x10^3/uL Red Blood Count 2.64 x10^6/uL Hemoglobin 7.4 g/dL Hematocrit 22.1 % Mean Corpuscular Volume 84 fL Mean Corpuscular Hemoglobin 28 pg Mean Corpuscular Hemoglobin Concent 33 g/dL Red Cell Distribution Width 19.7 % Platelet Count 168 x10^3/uL Neutrophils (%) (Auto) 91 % Lymphocytes (%) (Auto) 3 % Monocytes (%) (Auto) 6 % Eosinophils (%) (Auto) 0 % Basophils (%) (Auto) 1 % Neutrophils # (Auto) 33.1 x10^3/uL Lymphocytes # (Auto) 0.9 x10^3/uL Monocytes # (Auto) 2.1 x10^3/uL Eosinophils # (Auto) 0.0 x10^3/uL Basophils # (Auto) 0.2 x10^3/uL Sodium Level 137 mmol/L Potassium Level 4.1 mmol/L Chloride Level 105 mmol/L Carbon Dioxide Level 27 mmol/L Anion Gap 5 Blood Urea Nitrogen 16 mg/dL Creatinine 1.1 mg/dL Estimated GFR (Cockcroft-Gault) 86.1 Glucose Level 131 mg/dL Calcium Level 6.8 mg/dL O2 Saturation 97 % Arterial Blood pH 7.47 Arterial Blood pCO2 at Patient Temp 35 mmHg Arterial Blood pO2 at Patient Temp 100 mmHg Arterial Blood HCO3 25 mmol/L Arterial Blood Base Excess 1 mmol/L FiO2 40 ORDERED: RODNEY/LEONOR/BREANNE COMMENTS: PANCREATIC BED ABSCESS FLUID Procedure Result GRAM STAIN Final Final GRAM POSITIVE COCCI:MODERATE SQUAMOUS EPI CELL:RARE PMN (WBCs):FEW Unless otherwise specified, Testing Performed by: [address] [address] For Inquires, the Physician may contact the Microbiology department at [phone] ANAEROBIC-AEROBIC CULTURE PENDING RESPIRATORY CULTURE Final Final MODERATE FINAL ID= [CITROBACTER FREUNDI] MODERATE FINAL ID= [KLEBSIELLA OXYTOCA RAOULTELLA] Imaging: CT A/P 11/13 IMPRESSION: 1. Gas containing fluid collection replacing the pancreas, with an intact of gas extending to the skin surface in the right upper quadrant abdomen. Findings suspicious for an abscess either related to pancreatic necrosis or complication of pancreatectomy. Correlate clinically. 2. Moderate amount of ascites and mesenteric edema with abdominal distention and severe hepatic steatosis. Correlate clinically for any evidence of hypoperfusion injury or ischemia. 3. Foci of gas in the left upper quadrant abdomen are new in the presence of a percutaneous gastrostomy tube. Correlate for any history of recent instrumentation. A contained bowel perforation can yield this appearance. PE: GEN: chronically ill, intubated LUNGS: vent, clear HEART: mildly tachycardic ABD: rectal tube w/ dark stool NEURO/PSYCH: unresponsive A/P: Pseudocyst s/p drain S/p code, encephalopathy Anemia - Hgb stable 7.4 - transfused 11/13 Blood in stools - ?ischemic colitis Recent C Diff GNR bacteremia -- Plans as above, continue support. Justicifation of Admission Dx: Justifications for Admission: Justification of Admission Dx: Yes Comminuty Aquired Pneumonia: Med-High Risk Pt Sepsis: Infection PAXTON ALEXANDER Nov 17, 2019 10:49
[2019-11-17] MEDS: VANCOMYCIN 1.25 GM in IV NORMAL SALINE 250ML 250 ML IV SCH ×2 (11:58→23:39)
--- NOTE | 2019-11-17 12:52 | NUR ---
SS following up with discharge planning. SS reviewed pt chart and discussed with pt RN. Pt remains on the vent at this time. Pt on IV Flagyl, IV Cefepime, IV Vancomycin, and IV Micafungin. Pt on Levophed. Pt continuing to have bloody stools. CT and EEG today. SS will continue to follow for discharge planning.
--- NOTE | 2019-11-17 15:05 | RAD ---
[id number] [facility] TISS W/IMG CT Image-guided pancreatic abscess drain placement History: , , Sepsis , pancreatic abscess PQRS Compliance Statement: One or more of the following individualized dose reduction techniques were utilized for this examination: 1. Automated exposure control 2. Adjustment of the mA and/or kV according to patient size 3. Use of iterative reconstruction technique Procedure Written informed consent was obtained. Localization imaging was performed to identify best approach. The overlying skin was draped and prepped in normal sterile fashion. Local anesthesia with one % lidocaine was performed. A small dermatotomy was made. A needle was advanced under Imaging guidance into the targeted collection. Needle placement was confirmed clinically by return of very viscous sanguinous appearing material. A wire was placed within the collection and confirmed on imaging. The needle was exchanged over wire for a drainage catheter. The catheter was secured in place to the skin using 2-0 Ethilon suture. Catheter was placed to bulb suction drainage. Approximately 13 cc was aspirated. 14 Telugu drainage catheter was deployed. Sedation: Local anesthesia with 1% lidocaine was utilized. Impression: Image-guided abscess drain placement with microbiologic analysis pending. Electronically signed by: Hilton Bustamante MD (11/17/2019 3:02 PM) [id number]
--- NOTE | 2019-11-17 16:42 | RAD ---
CT HEAD WO CONTRAST History: Reason: Coma, evaluate for intracranial lesion / Spl. Instructions: / History: Comparison: November 14, 2019 Technique: Noncontrast CT imaging was performed of the head. Exposure: One or more of the following individualized dose reduction techniques were utilized for this examination: 1. Automated exposure control 2. Adjustment of the mA and/or kV according to patient size 3. Use of iterative reconstruction technique. Findings: New foci of hypoattenuation within the right frontal subcortical and deep white matter. No acute intracranial hemorrhage. No mass effect. No hydrocephalus. Imaged orbits are unremarkable. Minimal scattered paranasal sinus mucosal thickening. Minimal left mastoid fluid. No acute calvarial fracture. Impression: 1. New foci of hypoattenuation within the right frontal subcortical and deep white matter, concerning for ischemia. Recommend brain MRI with and without contrast to further evaluate. Electronically signed by: Khurram Faust DO (11/17/2019 4:39 PM) [id number]
--- NOTE | 2019-11-17 18:51 | NUR ---
1835: EEG completed, CT head results in EMR. Page to Dr CARL to notify of tests being done, return call not yet received. Will pass onto rn night.
--- NOTE | 2019-11-17 20:11 | EEG ---
DATE OF SERVICE: 11/17/2019 ELECTROENCEPHALOGRAM REPORT EEG NUMBER: [id number] OBJECTIVE: The patient is a 49-year-old male status post code blue, who has remained unresponsive. DESCRIPTION: This is a digital study. Electrodes are placed according to the international 10-20 system. Bipolar and referential montages are available. Activation procedures typically include hyperventilation and intermittent photic stimulation. INTERPRETATION: The waking background consists of 5-6 Hz, 20-50 microvolt activity. There are periodic lateralizing epileptiform discharges over the right hemisphere. No normal sleep patterns are observed. Hyperventilation is not performed. Intermittent photic stimulation is noncontributory. IMPRESSION: This electroencephalogram with the patient in an obtunded state is abnormal because of a moderate, diffuse disturbance of cerebral activity as well as epileptic activity over the right hemisphere. This may be observed in acute infarcts and various metabolic issues. Thank you for letting us help with the patient's care. CHRISTOPHER CARL MD DR: MARCIE/justyn JOB#: [id number] / [id number]
[2019-11-17] MEDS: ALPRAZolam 0.5 MG TABLET PO SCH (20:45)
[2019-11-17] MEDS ORDERED: IV NORMAL SALINE 500ML BAG 500 ML IV ONE (21:00)
[2019-11-17] MEDS ORDERED: IV NORMAL SALINE 1000ML BAG 1,000 ML IV SCH (22:30)
[2019-11-18] VITALS (25 sets, daily range): BP systolic 94–114; BP diastolic 65–83
[2019-11-18 05:29] LABS: BASO # 0.1 x10^3/uL (0.0-0.2); BASO % 0 % (0-3); EOS % 0 % (0-3); HEMATOCRIT 22.7 % (39.0-53.0); HEMOGLOBIN 7.5 g/dL (13.0-17.5); LYMPH # 0.9 x10^3/uL (1.0-4.8); LYMPH % 4 % (24-48); MEAN CORPUSCULAR HEMOGLOBIN 28 pg (25-35); MEAN CORPUSCULAR HGB CONC 33 g/dL (31-37); MEAN CORPUSCULAR VOLUME 85 fL (79-100); MONO # 1.5 x10^3/uL (0.0-1.1); MONO % 7 % (0-9); NEUT # 18.7 x10^3/uL (1.8-7.7); NEUT % 88 % (31-73); PLATELET COUNT 155 x10^3/uL (140-400); RED BLOOD COUNT 2.68 x10^6/uL (4.30-5.70); WHITE BLOOD COUNT 21.2 x10^3/uL (4.0-11.0)
[2019-11-18] MEDS: VALPROIC ACID (AS SODIUM SALT) 500 MG in IV DEXTROSE 5% 50 ML IV SCH ×3 (05:34→21:57)
[2019-11-18] MEDS: CEFEPIME HCL IV Push 1 GM VIAL. IVP SCH ×3 (05:34→21:57)
[2019-11-18 05:43] LABS: CALCIUM 7.1 mg/dL (8.5-10.1); CREATININE 0.7 mg/dL (0.7-1.3); POTASSIUM 3.8 mmol/L (3.5-5.1)
[2019-11-18 07:57] LABS: BASE EXCESS ABG -4 mmol/L (-3-3); HCO3 ABG 19 mmol/L (21-28); PCO2 ABG 28 mmHg (35-46); PO2 ABG 118 mmHg (75-108); SAT O2 ABG 97 % (92-99)
[2019-11-18 08:00] LABS: FIO2 ABG 40
[2019-11-18] MEDS: PANTOPRAZOLE IV PUSH 40 MG VIAL. IVP SCH ×2 (08:21→21:05)
[2019-11-18] MEDS: MICAFUNGIN 100 MG in IV DEXTROSE 5% 100ML 100 ML IV SCH (08:21)
[2019-11-18] MEDS: FERROUS SULFATE 325 MG TABLET. PO SCH ×2 (08:21→17:45)
[2019-11-18] MEDS: levETIRAcetam 1,000 MG in IV DEXTROSE 5% 100ML 100 ML IV SCH ×2 (08:21→21:19)
[2019-11-18] MEDS: VANCOMYCIN 125 MG/2.5 ML ORAL SOLUTION. PO SCH ×4 (08:21→21:05)
[2019-11-18] MEDS: LACTOBACILLUS RHAMNOSUS GG 1 CAPSULE. PO SCH ×2 (08:21→21:05)
--- NOTE | 2019-11-18 08:40 | PDOC ---
Infectious Disease Note Subjective Subjective intubated on vent, unresponsive, off sedation ROS ROS no n/v/ sob Vital Sign Vital Signs Vital Signs Date Time Temp Pulse Resp B/P (MAP) Pulse Ox O2 Delivery O2 Flow Rate FiO2 11/18/19 07:41 100 Ventilator 11/18/19 06:00 112 18 105/76 (86) 11/18/19 04:00 97.4 97.4 Physical Exam PHYSICAL EXAM GENERAL: Thin, cachectic male Intubated HEENT: Norm conj. ETT NECK: Supple, no lymphadenopathy. LUNGS: Decreased breath sounds at the bases, increased Resp rate HEART: S1, S2. tachy ABDOMEN: Distended, soft, nontender, fistula in place - bloody drainage, GJ tube in place. - [place] with 3 plus edema EXTREMITIES: Edema, no cyanosis.RLE IO - old site clean DERMATOLOGIC: Warm, dry. 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 NEUROLOGIC: unable to assess PSYCHIATRIC: Unable to assess DERMATOLOGIC: No generalized rash RIJ - clean. Labs Lab Laboratory Tests Test 11/18/19 05:00 11/18/19 07:40 White Blood Count 21.2 x10^3/uL (4.0-11.0) Red Blood Count 2.68 x10^6/uL (4.30-5.70) Hemoglobin 7.5 g/dL (13.0-17.5) Hematocrit 22.7 % (39.0-53.0) Mean Corpuscular Volume 85 fL (79-100) Mean Corpuscular Hemoglobin 28 pg (25-35) Mean Corpuscular Hemoglobin Concent 33 g/dL (31-37) Red Cell Distribution Width 20.0 % (11.5-14.5) Platelet Count 155 x10^3/uL (140-400) Neutrophils (%) (Auto) 88 % (31-73) Lymphocytes (%) (Auto) 4 % (24-48) Monocytes (%) (Auto) 7 % (0-9) Eosinophils (%) (Auto) 0 % (0-3) Basophils (%) (Auto) 0 % (0-3) Neutrophils # (Auto) 18.7 x10^3/uL (1.8-7.7) Lymphocytes # (Auto) 0.9 x10^3/uL (1.0-4.8) Monocytes # (Auto) 1.5 x10^3/uL (0.0-1.1) Eosinophils # (Auto) 0.0 x10^3/uL (0.0-0.7) Basophils # (Auto) 0.1 x10^3/uL (0.0-0.2) Sodium Level 138 mmol/L (136-145) Potassium Level 3.8 mmol/L (3.5-5.1) Chloride Level 107 mmol/L (98-107) Carbon Dioxide Level 25 mmol/L (21-32) Anion Gap 6 (6-14) Blood Urea Nitrogen 19 mg/dL (8-26) Creatinine 0.7 mg/dL (0.7-1.3) Estimated GFR (Cockcroft-Gault) 145.0 Glucose Level 129 mg/dL (70-99) Calcium Level 7.1 mg/dL (8.5-10.1) O2 Saturation 97 % (92-99) Arterial Blood pH 7.44 (7.35-7.45) Arterial Blood pCO2 at Patient Temp 28 mmHg (35-46) Arterial Blood pO2 at Patient Temp 118 mmHg (75-108) Arterial Blood HCO3 19 mmol/L (21-28) Arterial Blood Base Excess -4 mmol/L (-3-3) FiO2 40 Micro Microbiology 11/15/19 Gram Stain - Final, Resulted 11/15/19 Aerobic and Anaerobic Culture, Resulted Pending 11/14/19 Blood Culture - Preliminary, Resulted NO GROWTH AFTER 2 DAYS 11/14/19 Gram Stain Evaluation - Final, Complete 11/14/19 Respiratory Culture - Final, Complete 11/14/19 Antimicrobic Susceptibility - Final, Complete 11/07/19 Urine Culture - Final, Complete Objective Assessment Fever - better? PRBCs/seizures GNR bactermia 11/13 ID pend. Changed to Cefepime 11/14 with seizure 11/13 S/p IR abd drain 11/14 Kleb and Citrobacteri in sputum - sen pend Leukocytosis - seizures/abn CT scan/PRBCs - better today S/p Seizures 11/13 Elevated Troponin S/p IVC (actually in iliac) 11/13 Acute hypoxic resp failure intubated PEA Gj tube replaced 11/12 ? Loculated LL effusion on CT 11/12 Leukocytosis ? reactive 1. Bilateral lower extremity deep venous thrombosis 11/06 2. Clostridium difficile colitis 10/22 3. Leukocytosis with bandemia- better off abx 4. Left basilar pleural effusion and consolidation, chronic. 5. History of severe pancreatitis, status post exploratory laparotomy with pancreatic necrosectomy, cholecystotomy tube placement, gastrostomy tube placement, tracheostomy placement, five drains. Ascitic fluid drained status post tracheostomy recovered, history of hepatitis B during last admission in 07/2019. 6. Severe protein malnutrition Plan Plan of Care Blood and sputum cults - pending 11/13 Cefepime 11/14 - cautious with dosing with seizure F/u labs/cults Await Gen surg f/u D/w nursing Critically ill prog KRISTIAN Monte MD Nov 18, 2019 08:40
--- NOTE | 2019-11-18 09:37 | PDOC ---
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 Sedating medicines have been tapered. He is still on low-dose fentanyl which the nurse will presently stop. He may be a very slow metabolizer of the medications. Pancreatitis, respiratory failure, gastrointestinal hemorrhage while on anticoa gulation. Poor prognosis Plan Repeat EEG tomorrow Discussed with , still wants full aggressive care. Subjective none Objective Vital Signs Date Time Temp Pulse Resp B/P (MAP) Pulse Ox O2 Delivery O2 Flow Rate FiO2 11/18/19 07:41 100 Ventilator 11/18/19 06:00 112 18 105/76 (86) 11/18/19 04:00 97.4 97.4 Intake and Output 11/18/19 07:00 Intake Total 2078 ml Output Total 653 ml Balance 1425 ml IV Total 2078 ml Output Urine Total 633 ml Drainage Total 20 ml # Bowel Movements 1 PHYSICAL EXAM Off sedation, intubated PERRL. EOMI, positive oculocephalic reflex. CN: no focal findings. Muscle tone: normal. Muscle strength: minimal movement to pain DTR: 1+ Plantar reflex: silent Gait: not examined in bed. Sensory exam: not cooperative. Cerebellar: not cooperative Review of Relevant I have reviewed the following items alexandra (where applicable) has been applied. Labs Laboratory Tests Test 11/17/19 05:00 11/17/19 07:40 11/18/19 05:00 11/18/19 07:40 White Blood Count 36.4 x10^3/uL (4.0-11.0) 21.2 x10^3/uL (4.0-11.0) Red Blood Count 2.64 x10^6/uL (4.30-5.70) 2.68 x10^6/uL (4.30-5.70) Hemoglobin 7.4 g/dL (13.0-17.5) 7.5 g/dL (13.0-17.5) Hematocrit 22.1 % (39.0-53.0) 22.7 % (39.0-53.0) Mean Corpuscular Volume 84 fL (79-100) 85 fL (79-100) Mean Corpuscular Hemoglobin 28 pg (25-35) 28 pg (25-35) Mean Corpuscular Hemoglobin Concent 33 g/dL (31-37) 33 g/dL (31-37) Red Cell Distribution Width 19.7 % (11.5-14.5) 20.0 % (11.5-14.5) Platelet Count 168 x10^3/uL (140-400) 155 x10^3/uL (140-400) Neutrophils (%) (Auto) 91 % (31-73) 88 % (31-73) Lymphocytes (%) (Auto) 3 % (24-48) 4 % (24-48) Monocytes (%) (Auto) 6 % (0-9) 7 % (0-9) Eosinophils (%) (Auto) 0 % (0-3) 0 % (0-3) Basophils (%) (Auto) 1 % (0-3) 0 % (0-3) Neutrophils # (Auto) 33.1 x10^3/uL (1.8-7.7) 18.7 x10^3/uL (1.8-7.7) Lymphocytes # (Auto) 0.9 x10^3/uL (1.0-4.8) 0.9 x10^3/uL (1.0-4.8) Monocytes # (Auto) 2.1 x10^3/uL (0.0-1.1) 1.5 x10^3/uL (0.0-1.1) Eosinophils # (Auto) 0.0 x10^3/uL (0.0-0.7) 0.0 x10^3/uL (0.0-0.7) Basophils # (Auto) 0.2 x10^3/uL (0.0-0.2) 0.1 x10^3/uL (0.0-0.2) Sodium Level 137 mmol/L (136-145) 138 mmol/L (136-145) Potassium Level 4.1 mmol/L (3.5-5.1) 3.8 mmol/L (3.5-5.1) Chloride Level 105 mmol/L (98-107) 107 mmol/L (98-107) Carbon Dioxide Level 27 mmol/L (21-32) 25 mmol/L (21-32) Anion Gap 5 (6-14) 6 (6-14) Blood Urea Nitrogen 16 mg/dL (8-26) 19 mg/dL (8-26) Creatinine 1.1 mg/dL (0.7-1.3) 0.7 mg/dL (0.7-1.3) Estimated GFR (Cockcroft-Gault) 86.1 145.0 Glucose Level 131 mg/dL (70-99) 129 mg/dL (70-99) Calcium Level 6.8 mg/dL (8.5-10.1) 7.1 mg/dL (8.5-10.1) O2 Saturation 97 % (92-99) 97 % (92-99) Arterial Blood pH 7.47 (7.35-7.45) 7.44 (7.35-7.45) Arterial Blood pCO2 at Patient Temp 35 mmHg (35-46) 28 mmHg (35-46) Arterial Blood pO2 at Patient Temp 100 mmHg (75-108) 118 mmHg (75-108) Arterial Blood HCO3 25 mmol/L (21-28) 19 mmol/L (21-28) Arterial Blood Base Excess 1 mmol/L (-3-3) -4 mmol/L (-3-3) FiO2 40 40 Laboratory Tests Test 11/18/19 05:00 11/18/19 07:40 White Blood Count 21.2 x10^3/uL (4.0-11.0) Red Blood Count 2.68 x10^6/uL (4.30-5.70) Hemoglobin 7.5 g/dL (13.0-17.5) Hematocrit 22.7 % (39.0-53.0) Mean Corpuscular Volume 85 fL (79-100) Mean Corpuscular Hemoglobin 28 pg (25-35) Mean Corpuscular Hemoglobin Concent 33 g/dL (31-37) Red Cell Distribution Width 20.0 % (11.5-14.5) Platelet Count 155 x10^3/uL (140-400) Neutrophils (%) (Auto) 88 % (31-73) Lymphocytes (%) (Auto) 4 % (24-48) Monocytes (%) (Auto) 7 % (0-9) Eosinophils (%) (Auto) 0 % (0-3) Basophils (%) (Auto) 0 % (0-3) Neutrophils # (Auto) 18.7 x10^3/uL (1.8-7.7) Lymphocytes # (Auto) 0.9 x10^3/uL (1.0-4.8) Monocytes # (Auto) 1.5 x10^3/uL (0.0-1.1) Eosinophils # (Auto) 0.0 x10^3/uL (0.0-0.7) Basophils # (Auto) 0.1 x10^3/uL (0.0-0.2) Sodium Level 138 mmol/L (136-145) Potassium Level 3.8 mmol/L (3.5-5.1) Chloride Level 107 mmol/L (98-107) Carbon Dioxide Level 25 mmol/L (21-32) Anion Gap 6 (6-14) Blood Urea Nitrogen 19 mg/dL (8-26) Creatinine 0.7 mg/dL (0.7-1.3) Estimated GFR (Cockcroft-Gault) 145.0 Glucose Level 129 mg/dL (70-99) Calcium Level 7.1 mg/dL (8.5-10.1) O2 Saturation 97 % (92-99) Arterial Blood pH 7.44 (7.35-7.45) Arterial Blood pCO2 at Patient Temp 28 mmHg (35-46) Arterial Blood pO2 at Patient Temp 118 mmHg (75-108) Arterial Blood HCO3 19 mmol/L (21-28) Arterial Blood Base Excess -4 mmol/L (-3-3) FiO2 40 Microbiology 11/15/19 Gram Stain - Final, Resulted 11/15/19 Aerobic and Anaerobic Culture - Preliminary, Resulted 11/14/19 Blood Culture - Preliminary, Resulted NO GROWTH AFTER 3 DAYS 11/14/19 Gram Stain Evaluation - Final, Complete 11/14/19 Respiratory Culture - Final, Complete 11/14/19 Antimicrobic Susceptibility - Final, Complete 11/07/19 Urine Culture - Final, Complete Medications Current Medications Ceftriaxone Sodium (Rocephin) 1 gm 1X ONCE IVP ; Start 11/08/19 at 00:00; Stop 11/08/19 at 01:23; Status DC Enoxaparin Sodium (Lovenox 80mg Syringe) 80 mg 1X ONCE SQ Last administered on 11/08/19at 02:43; Start 11/08/19 at 00:00; Stop 11/08/19 at 00:01; Status DC Ceftriaxone Sodium (Rocephin Im) 1 gm 1X ONCE IM Last administered on 11/08/19 02:42; Start 11/08/19 at 01:45; Stop 11/08/19 at 01:46; Status DC Lorazepam (Ativan) 0.5 mg 1X ONCE PO Last administered on 11/08/19 03:28; Start 11/08/19 at 03:15; Stop 11/08/19 at 03:16; Status DC Acetaminophen (Tylenol) 500 mg PRN Q6HRS PRN PO FEVER Last administered on 11/12/19 04:36; Start 11/08/19 at 07:30 Alprazolam (Xanax) 0.5 mg HS PO Last administered on 11/11/19at 20:38; Start 11/08/19 at 21:00 Buspirone HCl (Buspar) 10 mg BIDACBL PO Last administered on 11/08/19 10:54; Start 11/08/19 at 07:30; Stop 11/08/19 at 11:46; Status DC Ferrous Sulfate (Feosol) 325 mg BIDWMEALS PO Last administered on 11/18/19at 08:21; Start 11/08/19 at 08:00 Gabapentin (Neurontin) 100 mg TID PO Last administered on 11/08/19 10:54; Start 11/08/19 at 09:00; Stop 11/08/19 at 11:46; Status DC Mirtazapine (Remeron) 15 mg QHS PO ; Start 11/08/19 at 21:00; Stop 11/08/19 at 17:19; Status DC Pantoprazole Sodium (Protonix) 40 mg DAILYAC PO Last administered on 11/15/19at 08:59; Start 11/08/19 at 08:00; Stop 11/15/19 at 12:56; Status DC Trazodone HCl (Desyrel) 50 mg QHS PO ; Start 11/08/19 at 21:00; Stop 11/08/19 at 17:19; Status DC Oxycodone HCl (Roxicodone) 15 mg PRN Q6HRS PRN PO PAIN Last administered on 11/13/19 11:01; Start 11/08/19 at 07:45 Apixaban (Eliquis) 10 mg BID PO Last administered on 11/13/19at 21:32; Start 11/08/19 at 09:00; Stop 11/14/19 at 10:08; Status DC Apixaban (Eliquis) 5 mg BID PO ; Start 11/15/19 at 09:00; Stop 11/14/19 at 10:08; Status DC Info (Anti-Coagulation Monitoring By Pharmacy) 1 each PRN DAILY PRN MC SEE COMMENTS Last administered on 11/13/19at 15:20; Start 11/08/19 at 07:45 Vancomycin HCl (Vancomycin Oral Solution) 125 mg [id number] PO Last administered on 11/08/19at 20:48; Start 11/08/19 at 17:30; Stop 11/09/19 at 09:55; Status DC Vancomycin HCl (Vancomycin Oral Solution) 250 mg [id number] PO Last administered on 11/11/19at 20:38; Start 11/09/19 at 13:00; Stop 11/12/19 at 09:03; Status DC Lactobacillus Rhamnosus (Culturelle) 1 cap BID PO Last administered on 11/18/19at 08:21; Start 11/09/19 at 21:00 Piperacillin Sod/ Tazobactam Sod 3.375 gm/Sodium Chloride 50 ml @ 100 mls/hr Q6HRS IV Last administered on 11/10/19at 05:58; Start 11/09/19 at 18:00; Stop 11/10/19 at 11:45; Status DC Temazepam (Restoril) 15 mg PRN QHS PRN PO INSOMNIA Last administered on 11/12/19at 23:15; Start 11/12/19 at 09:00 Vancomycin HCl (Vancomycin Oral Solution) 125 mg [id number] PO Last administered on 11/18/19at 08:21; Start 11/12/19 at 10:00 Iohexol (Omnipaque 350 Mg/ml) 100 ml 1X ONCE IV Last administered on 11/13/19at 08:15; Start 11/13/19 at 08:15; Stop 11/13/19 at 08:22; Status DC Info (CONTRAST GIVEN -- Rx MONITORING) 1 each PRN DAILY PRN MC SEE COMMENTS; Start 11/13/19 at 08:30; Stop 11/13/19 at 09:04; Status DC Fentanyl Citrate (Fentanyl 2ml Vial) 100 mcg STK-MED ONCE .ROUTE ; Start 11/13/19 at 08:43; Stop 11/13/19 at 08:43; Status DC Iohexol (Omnipaque 240 Mg/ml) 50 ml STK-MED ONCE .ROUTE ; Start 11/13/19 at 08:45; Stop 11/13/19 at 08:46; Status DC Fentanyl Citrate (Fentanyl 2ml Vial) 50 mcg 1X ONCE IV Last administered on 11/13/19at 09:37; Start 11/13/19 at 09:00; Stop 11/13/19 at 09:03; Status DC Iohexol (Omnipaque 240 Mg/ml) 50 ml 1X ONCE PO Last administered on 11/13/19at 09:37; Start 11/13/19 at 09:00; Stop 11/13/19 at 09:03; Status DC Info (CONTRAST GIVEN -- Rx MONITORING) 1 each PRN DAILY PRN MC SEE COMMENTS; Start 11/13/19 at 09:15; Stop 11/15/19 at 09:14; Status DC Morphine Sulfate (Morphine Sulfate) 2 mg PRN Q2HR PRN IV PAIN Last administered on 11/13/19at 11:34; Start 11/13/19 at 11:30; Stop 11/13/19 at 13:53; Status DC Morphine Sulfate (Morphine Sulfate) 4 mg PRN Q2HR PRN IVP MODERATE TO SEVERE PAIN Last administered on 11/14/19at 08:16; Start 11/13/19 at 14:00 Ondansetron HCl (Zofran) 4 mg PRN Q6HRS PRN IVP NAUSEA/VOMITING Last administered on 11/14/19at 00:13; Start 11/13/19 at 19:30 Dextrose (Dextrose 50%-Water Syringe) 25 gm STK-MED ONCE IV ; Start 11/14/19 at 07:28; Stop 11/14/19 at 07:28; Status DC Epinephrine HCl 5 mg/Sodium Chloride 255 ml @ 23.47 mls/ hr 1X ONCE IV ; Start 11/14/19 at 08:00; Stop 11/14/19 at 18:51; Status DC Fentanyl Citrate 30 ml @ 0 mls/hr CONT PRN IV SEE PROTOCOL Last administered on 11/16/19at 12:15; Start 11/14/19 at 08:15 Propofol 100 ml @ 0 mls/hr CONT PRN IV SEE PROTOCOL; Start 11/14/19 at 08:15 Midazolam HCl 100 ml @ 0 mls/hr CONT PRN IV SEE PROTOCOL Last administered on 11/15/19at 08:36; Start 11/14/19 at 08:15 Meropenem 500 mg/ Sodium Chloride 50 ml @ 100 mls/hr Q6HRS IV Last administered on 11/15/19at 05:29; Start 11/14/19 at 12:00; Stop 11/15/19 at 06:10; Status DC Vancomycin HCl (Vanco Per Pharmacy) 1 each PRN DAILY PRN MC SEE COMMENTS Last administered on 11/17/19at 09:32; Start 11/14/19 at 09:00; Stop 11/18/19 at 08:42; Status DC Metronidazole 100 ml @ 100 mls/hr Q8HRS IV Last administered on 11/18/19at 05:34; Start 11/14/19 at 12:00; Stop 11/18/19 at 08:38; Status DC Micafungin Sodium 100 mg/Dextrose 100 ml @ 100 mls/hr Q24H IV Last administered on 11/18/19at 08:21; Start 11/14/19 at 09:00; Stop 11/18/19 at 08:38; Status DC Metronidazole 100 ml @ 100 mls/hr Q8HRS IV ; Start 11/14/19 at 09:05; Stop 11/14/19 at 13:38; Status DC Vancomycin HCl 2 gm/Sodium Chloride 500 ml @ 250 mls/hr 1X ONCE IV Last administered on 11/14/19at 12:04; Start 11/14/19 at 10:00; Stop 11/14/19 at 11:59; Status DC Norepinephrine Bitartrate 8 mg/ Dextrose 258 ml @ 14.841 mls/ hr CONT PRN IV PER PROTOCOL Last administered on 11/16/19at 21:56; Start 11/14/19 at 09:30 Heparin Sodium/ Dextrose 250 ml @ 9.2 mls/hr CONT PRN IV PER PROTOCOL; Start 11/14/19 at 10:00; Stop 11/14/19 at 16:18; Status DC Heparin Sodium (Porcine) (Heparin Sodium) 1,900 unit PRN Q6HRS PRN IV FOR UFH LEVEL LESS THAN 0.2; Start 11/14/19 at 10:00; Stop 11/14/19 at 16:18; Status DC Heparin Sodium (Porcine) (Heparin Sodium) 4,000 unit 1X ONCE IV ; Start 11/14/19 at 10:00; Stop 11/14/19 at 16:18; Status DC Aspirin (Woodrow Aspirin) 325 mg 1X ONCE JT ; Start 11/14/19 at 10:30; Stop 11/14/19 at 16:18; Status DC Sodium Chloride 1,000 ml @ 500 mls/hr Q2H IV Last administered on 11/14/19at 13:31; Start 11/14/19 at 11:30; Stop 11/14/19 at 15:29; Status DC Lidocaine HCl (Buffered Lidocaine 1%) 3 ml STK-MED ONCE .ROUTE ; Start 11/14/19 at 15:06; Stop 11/14/19 at 15:07; Status DC Iohexol (Omnipaque 240 Mg/ml) 50 ml STK-MED ONCE .ROUTE ; Start 11/14/19 at 15:06; Stop 11/14/19 at 15:07; Status DC Lidocaine HCl (Buffered Lidocaine 1%) 6 ml 1X ONCE INJ Last administered on 11/14/19at 16:51; Start 11/14/19 at 16:15; Stop 11/14/19 at 16:16; Status DC Iohexol (Omnipaque 240 Mg/ml) 50 ml 1X ONCE IJ Last administered on 11/14/19at 16:52; Start 11/14/19 at 16:15; Stop 11/14/19 at 16:16; Status DC Iohexol (Omnipaque 240 Mg/ml) 50 ml STK-MED ONCE .ROUTE ; Start 11/14/19 at 16:09; Stop 11/14/19 at 16:09; Status DC Levetiracetam 1000 mg/Dextrose 110 ml @ 440 mls/hr 1X ONCE IV Last administered on 11/14/19at 17:09; Start 11/14/19 at 16:15; Stop 11/14/19 at 16:2 9; Status DC Levetiracetam 500 mg/Dextrose 105 ml @ 420 mls/hr Q12HR IV Last administered on 11/14/19at 20:55; Start 11/14/19 at 21:00; Stop 11/14/19 at 21:56; Status DC Iohexol (Omnipaque 240 Mg/ml) 50 ml STK-MED ONCE .ROUTE ; Start 11/14/19 at 16:14; Stop 11/14/19 at 16:15; Status DC Vancomycin HCl 1.25 gm/Sodium Chloride 250 ml @ 167 mls/hr Q12H IV Last administered on 11/17/19at 23:39; Start 11/15/19 at 00:01; Stop 11/18/19 at 08:38; Status DC Vancomycin HCl (Vancomycin Trough Level) 1 each 1X ONCE MC Last administered on 11/15/19at 23:30; Start 11/15/19 at 23:30; Stop 11/15/19 at 23:31; Status DC Heparin Sodium/ Sodium Chloride 500 ml @ As Directed STK-MED ONCE .ROUTE ; Start 11/14/19 at 16:41; Stop 11/14/19 at 16:41; Status DC Heparin Sodium/ Sodium Chloride (HEPARIN for ARTERIAL LINE FLUSH) 1,000 unit 1X ONCE IV Last administered on 11/14/19at 16:54; Start 11/14/19 at 17:00; Stop 11/14/19 at 17:01; Status DC Levetiracetam 500 mg/Dextrose 105 ml @ 420 mls/hr 1X ONCE IV Last administered on 11/14/19at 22:02; Start 11/14/19 at 22:30; Stop 11/14/19 at 22:44; Status DC Levetiracetam 1000 mg/Dextrose 110 ml @ 440 mls/hr Q12HR IV Last administered on 11/18/19at 08:21; Start 11/15/19 at 09:00 Valproic Acid 1000 mg/Dextrose 60 ml @ 55 mls/hr 1X ONCE IV Last administered on 11/14/19at 23:01; Start 11/14/19 at 23:00; Stop 11/15/19 at 00:05; Status DC Valproic Acid 500 mg/Dextrose 55 ml @ 55 mls/hr Q8HRS IV Last administered on 11/18/19at 05:34; Start 11/15/19 at 06:00 Acetaminophen (Tylenol) 650 mg PRN Q6HRS PRN PEG MILD PAIN/TEMP > 100.3'F Last administered on 11/15/19at 04:33; Start 11/15/19 at 04:15 Cefepime HCl (Maxipime) 1 gm Q8HRS IVP Last administered on 11/18/19at 05:34; Start 11/15/19 at 07:00 Sodium Bicarbonate (Sodium Bicarb Adult 8.4% Syr) 50 meq 1X ONCE IV Last administered on 11/15/19at 10:16; Start 11/15/19 at 10:15; Stop 11/15/19 at 10:16; Status DC Lidocaine HCl (Buffered Lidocaine 1%) 3 ml STK-MED ONCE .ROUTE ; Start 11/15/19 at 12:38; Stop 11/15/19 at 12:38; Status DC Pantoprazole Sodium (PROTONIX VIAL for IV PUSH) 40 mg DAILYAC IVP Last administered on 11/16/19at 07:58; Start 11/16/19 at 07:30; Stop 11/16/19 at 11:59; Status DC Lidocaine HCl (Buffered Lidocaine 1%) 6 ml 1X ONCE INJ Last administered on 11/15/19at 14:15; Start 11/15/19 at 14:15; Stop 11/15/19 at 14:20; Status DC Pantoprazole Sodium (PROTONIX VIAL for IV PUSH) 40 mg BID IVP Last administered on 11/18/19at 08:21; Start 11/16/19 at 21:00 Dextrose (Dextrose 50%-Water Syringe) 25 gm STK-MED ONCE IV ; Start 11/14/19 at 07:30; Stop 11/17/19 at 09:05; Status DC Sodium Chloride 500 ml @ 250 mls/hr 1X ONCE IV Last administered on 11/17/19at 20:42; Start 11/17/19 at 21:00; Stop 11/17/19 at 22:59; Status DC Sodium Chloride 1,000 ml @ 65 mls/hr [id number] IV Last administered on 11/17/19at 23:11; Start 11/17/19 at 22:30; Stop 11/18/19 at 10:30 Active Scripts Active Oxycodone Hcl Immed.release (Oxycodone Hcl) 15 Mg Tablet 15 Mg PO PRN Q6HRS PRN 5 Days Reported Remeron (Mirtazapine) 15 Mg Tablet 1 Tab PO QHS Buspirone Hcl 10 Mg Tablet 1 Tab PO BIDACBL Alprazolam 0.5 Mg Tablet 1 Tab PO HS Acetaminophen 500 Mg Tablet 1 Tab PO PRN Q6HRS PRN 15 Days Ferrous Sulfate 325 Mg Tablet 65 Mg PO BID Pantoprazole Sodium (Pantoprazole Sodium) 40 Mg Tablet.dr 40 Mg PO DAILYAC Trazodone Hcl 50 Mg Tablet 1 Tab PO QHS Gabapentin (Gabapentin) 100 Mg Capsule 100 Mg PO TID Vitals/I & O Vital Sign - Last 24 Hours 11/17/19 11/17/19 11/17/19 11/17/19 10:00 11:00 11:47 12:00 Temp 98.0 98.0 Pulse 102 103 99 Resp 16 16 16 B/P (MAP) 106/74 (85) 106/72 (83) 106/75 (85) Pulse Ox 100 100 100 100 O2 Delivery Ventilator Ventilator Ventilator Ventilator 11/17/19 11/17/19 11/17/19 11/17/19 12:00 13:00 14:00 15:00 Pulse 102 102 104 Resp 16 16 16 B/P (MAP) 115/77 (90) 108/76 (87) 107/78 (88) Pulse Ox 100 100 100 O2 Delivery Mechanical Ventilator Ventilator Ventilator Ventilator 11/17/19 11/17/19 11/17/19 11/17/19 15:51 16:00 16:00 17:00 Temp 97.9 97.9 Pulse 112 114 Resp 16 16 B/P (MAP) 120/85 (97) 119/91 (100) Pulse Ox 100 100 100 O2 Delivery Ventilator Ventilator Mechanical Ventilator Ventilator 11/17/19 11/17/19 11/17/19 11/17/19 18:00 19:00 19:50 20:00 Temp 98.0 98.0 Pulse 115 108 108 Resp 16 17 20 B/P (MAP) 118/80 (93) 111/81 (91) 117/81 (93) Pulse Ox 100 100 100 100 O2 Delivery Ventilator Ventilator Ventilator Ventilator 11/17/19 11/17/19 11/17/19 11/17/19 20:00 20:45 21:00 21:15 Pulse 110 113 110 Resp 18 18 16 B/P (MAP) 120/82 (95) 114/84 (94) 111/81 (91) Pulse Ox 100 100 100 O2 Delivery Mechanical Ventilator Ventilator Ventilator Ventilator 11/17/19 11/17/19 11/17/19 8/3/20 21:30 21:45 22:00 23:00 Pulse 113 114 113 Resp 19 18 19 B/P (MAP) 111/78 (89) 104/71 (82) 101/73 (82) Pulse Ox 100 100 100 100 O2 Delivery Ventilator Ventilator Ventilator Ventilator 11/17/19 11/17/19 11/18/19 11/18/19 23:10 23:45 00:00 00:58 Temp 98.0 98.0 Pulse 115 Resp 19 B/P (MAP) 114/82 (93) Pulse Ox 100 100 100 O2 Delivery Ventilator Mechanical Ventilator Ventilator Ventilator 11/18/19 11/18/19 11/18/19 11/18/19 01:00 02:00 03:00 03:24 Pulse 113 109 109 Resp 18 16 17 B/P (MAP) 99/77 (84) 104/76 (85) 98/77 (84) Pulse Ox 100 100 100 100 O2 Delivery Ventilator Ventilator Ventilator Ventilator 11/18/19 11/18/19 11/18/19 11/18/19 04:00 04:00 05:00 05:47 Temp 97.4 97.4 Pulse 115 111 Resp 16 18 B/P (MAP) 103/76 (85) 99/78 (85) Pulse Ox 100 100 100 O2 Delivery Mechanical Ventilator Ventilator Ventilator Ventilator 11/18/19 11/18/19 06:00 07:41 Pulse 112 Resp 18 B/P (MAP) 105/76 (86) Pulse Ox 100 100 O2 Delivery Ventilator Ventilator Intake and Output 11/17/19 11/17/19 11/18/19 15:00 23:00 07:00 Intake Total 515 ml 401 ml 1162 ml Output Total 280 ml 193 ml 180 ml Balance 235 ml 208 ml 982 ml Justicifation of Admission Dx: Justifications for Admission: Justification of Admission Dx: Yes Comminuty Aquired Pneumonia: Med-High Risk Pt Sepsis: Infection CHRISTOPHER CARL MD Nov 18, 2019 09:37
--- NOTE | 2019-11-18 10:05 | PDOC ---
Date of Service: DATE: 11/18/19 TIME: 09:59 Objective: Objective: Reviewed w/ nurse - neurology has d/w family - offered transfer to - current plans to repeat EEG tomorrow. No bleeding, stools slowing. Vital Signs: Vital Signs Date Time Temp Pulse Resp B/P (MAP) Pulse Ox O2 Delivery O2 Flow Rate FiO2 11/18/19 08:00 Mechanical Ventilator 11/18/19 07:41 100 11/18/19 06:00 112 18 105/76 (86) 11/18/19 04:00 97.4 97.4 Labs: Laboratory Tests Test 11/18/19 05:00 11/18/19 07:40 White Blood Count 21.2 x10^3/uL Red Blood Count 2.68 x10^6/uL Hemoglobin 7.5 g/dL Hematocrit 22.7 % Mean Corpuscular Volume 85 fL Mean Corpuscular Hemoglobin 28 pg Mean Corpuscular Hemoglobin Concent 33 g/dL Red Cell Distribution Width 20.0 % Platelet Count 155 x10^3/uL Neutrophils (%) (Auto) 88 % Lymphocytes (%) (Auto) 4 % Monocytes (%) (Auto) 7 % Eosinophils (%) (Auto) 0 % Basophils (%) (Auto) 0 % Neutrophils # (Auto) 18.7 x10^3/uL Lymphocytes # (Auto) 0.9 x10^3/uL Monocytes # (Auto) 1.5 x10^3/uL Eosinophils # (Auto) 0.0 x10^3/uL Basophils # (Auto) 0.1 x10^3/uL Platelet Estimate Pending Sodium Level 138 mmol/L Potassium Level 3.8 mmol/L Chloride Level 107 mmol/L Carbon Dioxide Level 25 mmol/L Anion Gap 6 Blood Urea Nitrogen 19 mg/dL Creatinine 0.7 mg/dL Estimated GFR (Cockcroft-Gault) 145.0 Glucose Level 129 mg/dL Calcium Level 7.1 mg/dL O2 Saturation 97 % Arterial Blood pH 7.44 Arterial Blood pCO2 at Patient Temp 28 mmHg Arterial Blood pO2 at Patient Temp 118 mmHg Arterial Blood HCO3 19 mmol/L Arterial Blood Base Excess -4 mmol/L FiO2 40 Imaging: EEG 11/16 IMPRESSION: This electroencephalogram with the patient in an obtunded state is abnormal because of a moderate, diffuse disturbance of cerebral activity as well as epileptic activity over the right hemisphere. This may be observed in acute infarcts and various metabolic issues. Thank you for letting us help with the patient's care. Head CT 11/16 Impression: 1. New foci of hypoattenuation within the right frontal subcortical and deep white matter, concerning for ischemia. Recommend brain MRI with and without contrast to further evaluate. PE: GEN: chronically ill, intubated LUNGS: vent HEART: tachycardic ABD: distended NEURO/PSYCH: unresponsive A/P: Pseudocyst s/p drain S/p code, encephalopathy/right infarct Anemia - stable, no further blood in stools Recent C Diff GNR bacteremia -- Continue same per GI. Justicifation of Admission Dx: Justifications for Admission: Justification of Admission Dx: Yes Comminuty Aquired Pneumonia: Med-High Risk Pt Sepsis: Infection PAXTON ALEXANDER Nov 18, 2019 10:05
--- NOTE | 2019-11-18 10:28 | NUR ---
SS following up with discharge planning. SS reviewed pt chart and discussed with pt RN. Pt remains on the vent at this time. Pt on IV Cefepime. Pt had EEG on 11/17/2019 and is currently unresponsive. Prognosis poor. Physicians discussed goals of care with family. Pt currently full code and full aggressive treatment. Pt's family offered transfer to for continuous EEG monitoring and family declined. Pt to have follow up EEG in the morning. SS will continue to follow for discharge planning.
[2019-11-18 10:30] LABS: % ATYL 2 % (0-0); % BANDS 3 % (0-9); % MONOS 4 % (0-10); % SEGS 91 % (35-66); ANISOCYTOSIS SLIGHT; PLT ESTIMATE ADEQUATE (ADEQUATE)
--- NOTE | 2019-11-18 10:46 | PDOC ---
PULMONARY PROGRESS NOTES DATE: 11/18/19 TIME: 10:37 Subjective S/P cardiac arrest with 3 rounds of CPR and EPI/ bicarb 11/13, intubated, off sedation since 48 hrs. does trigger vent but remains non responsive Off levophed seizures post arrest suspected brain anoxia/ ct head with ischemic cva s/p IVC filter for DVT and GI bleed/ No PE Vitals Vital Signs Date Time Temp Pulse Resp B/P (MAP) Pulse Ox O2 Delivery O2 Flow Rate FiO2 11/18/19 08:00 Mechanical Ventilator 11/18/19 07:41 100 11/18/19 06:00 112 18 105/76 (86) 11/18/19 04:00 97.4 97.4 Comments unable to obtain intubated HEENT: Other (nc at perrl nose clear orally intubated neck no lad no thyromegaly) Lungs: Other (decreased BLL) Cardiovascular: S1, S2 Abdomen: Other (less distended doft deminished bs) Extremities: Other (2+ edema, cold left foot) Skin: Warm Labs Laboratory Tests Test 11/17/19 05:00 11/17/19 07:40 11/18/19 05:00 11/18/19 07:40 White Blood Count 36.4 x10^3/uL (4.0-11.0) 21.2 x10^3/uL (4.0-11.0) Red Blood Count 2.64 x10^6/uL (4.30-5.70) 2.68 x10^6/uL (4.30-5.70) Hemoglobin 7.4 g/dL (13.0-17.5) 7.5 g/dL (13.0-17.5) Hematocrit 22.1 % (39.0-53.0) 22.7 % (39.0-53.0) Mean Corpuscular Volume 84 fL (79-100) 85 fL (79-100) Mean Corpuscular Hemoglobin 28 pg (25-35) 28 pg (25-35) Mean Corpuscular Hemoglobin Concent 33 g/dL (31-37) 33 g/dL (31-37) Red Cell Distribution Width 19.7 % (11.5-14.5) 20.0 % (11.5-14.5) Platelet Count 168 x10^3/uL (140-400) 155 x10^3/uL (140-400) Neutrophils (%) (Auto) 91 % (31-73) 88 % (31-73) Lymphocytes (%) (Auto) 3 % (24-48) 4 % (24-48) Monocytes (%) (Auto) 6 % (0-9) 7 % (0-9) Eosinophils (%) (Auto) 0 % (0-3) 0 % (0-3) Basophils (%) (Auto) 1 % (0-3) 0 % (0-3) Neutrophils # (Auto) 33.1 x10^3/uL (1.8-7.7) 18.7 x10^3/uL (1.8-7.7) Lymphocytes # (Auto) 0.9 x10^3/uL (1.0-4.8) 0.9 x10^3/uL (1.0-4.8) Monocytes # (Auto) 2.1 x10^3/uL (0.0-1.1) 1.5 x10^3/uL (0.0-1.1) Eosinophils # (Auto) 0.0 x10^3/uL (0.0-0.7) 0.0 x10^3/uL (0.0-0.7) Basophils # (Auto) 0.2 x10^3/uL (0.0-0.2) 0.1 x10^3/uL (0.0-0.2) Sodium Level 137 mmol/L (136-145) 138 mmol/L (136-145) Potassium Level 4.1 mmol/L (3.5-5.1) 3.8 mmol/L (3.5-5.1) Chloride Level 105 mmol/L (98-107) 107 mmol/L (98-107) Carbon Dioxide Level 27 mmol/L (21-32) 25 mmol/L (21-32) Anion Gap 5 (6-14) 6 (6-14) Blood Urea Nitrogen 16 mg/dL (8-26) 19 mg/dL (8-26) Creatinine 1.1 mg/dL (0.7-1.3) 0.7 mg/dL (0.7-1.3) Estimated GFR (Cockcroft-Gault) 86.1 145.0 Glucose Level 131 mg/dL (70-99) 129 mg/dL (70-99) Calcium Level 6.8 mg/dL (8.5-10.1) 7.1 mg/dL (8.5-10.1) O2 Saturation 97 % (92-99) 97 % (92-99) Arterial Blood pH 7.47 (7.35-7.45) 7.44 (7.35-7.45) Arterial Blood pCO2 at Patient Temp 35 mmHg (35-46) 28 mmHg (35-46) Arterial Blood pO2 at Patient Temp 100 mmHg (75-108) 118 mmHg (75-108) Arterial Blood HCO3 25 mmol/L (21-28) 19 mmol/L (21-28) Arterial Blood Base Excess 1 mmol/L (-3-3) -4 mmol/L (-3-3) FiO2 40 40 Segmented Neutrophils % 91 % (35-66) Band Neutrophils % 3 % (0-9) Atypical Lymphocytes % (Manual) 2 % (0-0) Monocytes % 4 % (0-10) Platelet Estimate Adequate (ADEQUATE) Large Platelets Present Anisocytosis Slight Laboratory Tests Test 11/18/19 05:00 11/18/19 07:40 White Blood Count 21.2 x10^3/uL (4.0-11.0) Red Blood Count 2.68 x10^6/uL (4.30-5.70) Hemoglobin 7.5 g/dL (13.0-17.5) Hematocrit 22.7 % (39.0-53.0) Mean Corpuscular Volume 85 fL (79-100) Mean Corpuscular Hemoglobin 28 pg (25-35) Mean Corpuscular Hemoglobin Concent 33 g/dL (31-37) Red Cell Distribution Width 20.0 % (11.5-14.5) Platelet Count 155 x10^3/uL (140-400) Neutrophils (%) (Auto) 88 % (31-73) Lymphocytes (%) (Auto) 4 % (24-48) Monocytes (%) (Auto) 7 % (0-9) Eosinophils (%) (Auto) 0 % (0-3) Basophils (%) (Auto) 0 % (0-3) Neutrophils # (Auto) 18.7 x10^3/uL (1.8-7.7) Lymphocytes # (Auto) 0.9 x10^3/uL (1.0-4.8) Monocytes # (Auto) 1.5 x10^3/uL (0.0-1.1) Eosinophils # (Auto) 0.0 x10^3/uL (0.0-0.7) Basophils # (Auto) 0.1 x10^3/uL (0.0-0.2) Segmented Neutrophils % 91 % (35-66) Band Neutrophils % 3 % (0-9) Atypical Lymphocytes % (Manual) 2 % (0-0) Monocytes % 4 % (0-10) Platelet Estimate Adequate (ADEQUATE) Large Platelets Present Anisocytosis Slight Sodium Level 138 mmol/L (136-145) Potassium Level 3.8 mmol/L (3.5-5.1) Chloride Level 107 mmol/L (98-107) Carbon Dioxide Level 25 mmol/L (21-32) Anion Gap 6 (6-14) Blood Urea Nitrogen 19 mg/dL (8-26) Creatinine 0.7 mg/dL (0.7-1.3) Estimated GFR (Cockcroft-Gault) 145.0 Glucose Level 129 mg/dL (70-99) Calcium Level 7.1 mg/dL (8.5-10.1) O2 Saturation 97 % (92-99) Arterial Blood pH 7.44 (7.35-7.45) Arterial Blood pCO2 at Patient Temp 28 mmHg (35-46) Arterial Blood pO2 at Patient Temp 118 mmHg (75-108) Arterial Blood HCO3 19 mmol/L (21-28) Arterial Blood Base Excess -4 mmol/L (-3-3) FiO2 40 Medications Active Scripts Medications Dose Route/Sig Max Daily Dose Days Date Category Remeron (Mirtazapine) 15 Mg Tablet 1 Tab PO QHS 11/01/19 Reported Oxycodone Hcl Immed.release (Oxycodone Hcl) 15 Mg Tablet 15 Mg PO PRN Q6HRS PRN 5 10/31/19 Rx Buspirone Hcl 10 Mg Tablet 1 Tab PO BIDACBL 10/21/19 Reported Alprazolam 0.5 Mg Tablet 1 Tab PO HS 10/16/19 Reported Acetaminophen 500 Mg Tablet 1 Tab PO PRN Q6HRS PRN 15 10/16/19 Reported Ferrous Sulfate 325 Mg Tablet 65 Mg PO BID 10/16/19 Reported Pantoprazole Sodium (Pantoprazole Sodium) 40 Mg Tablet.dr 40 Mg PO DAILYAC 08/15/19 Reported Trazodone Hcl 50 Mg Tablet 1 Tab PO QHS 08/15/19 Reported Gabapentin (Gabapentin) 100 Mg Capsule 100 Mg PO TID 08/15/[address] of abd and pelvis 1. Gas containing fluid collection replacing the pancreas, with an intact of gas extending to the skin surface in the right upper quadrant abdomen. Findings suspicious for an abscess either related to pancreatic necrosis or complication of pancreatectomy. Correlate clinically. 2. Moderate amount of ascites and mesenteric edema with abdominal distention and severe hepatic steatosis. Correlate clinically for any evidence of hypoperfusion injury or ischemia. 3. Foci of gas in the left upper quadrant abdomen are new in the presence of a percutaneous gastrostomy tube. Correlate for any history of recent instrumentation. A contained bowel perforation can yield this appearance. echo reviewed There is moderate concentric left ventricular hypertrophy. The left ventricular systolic function is normal and the ejection fraction is within normal range. The Ejection Fraction is 60-65%. There is normal LV segmental wall motion. The right ventricle is mildly to moderately dilated. Impression . IMPRESSION: 1.Acute Hypoxic respiratory Failure 2/2 cardiac arrest-- now requiring mechanical ventilation , likely anoxic brain injury/ acute ischemic CVA 2.S/P Cardiac arrest, ? Etiology. likely septic shock, pancreatic bed adscess, ? Narcotics contribution, acute CVA 3. Suspect Brain anoxia. Not responsive, off sedation. Seizures post arrest.ct head initially neg for SDH 4..Lower extremity edema secondary to lower extremity deep venous thrombosis with no evidence of pulmonary embolism. Risk factor for deep venous thrombosis is immobilization. s/p IVC filter and AC withheld due to anemia and GI bleed. cold left foot. get arterial dopplers 5. The patient with gallstone pancreatitis in May. He is status post exploratory laparotomy with pancreatic necrosectomy, history of gastrostomy tube placement. septic shock on pressors 6. History of respiratory failure, status post tracheostomy and subsequent decannulation. 7. History of hepatitis B. 8. History of renal failure, on hemodialysis in the past and subsequently renal function with return back to normal. 9. Clostridium difficile colitis. 10. Pancreatic Bed Abscess, GI and Surgery following. 11. CT with LLL mass like density related to fluid collection/ pseudo tumor 12. GI Bleeding 13. seizures Plan . RECOMMENDATIONS: continue current vent support, setting reviewed, ABG reviewed, will make adjustments as needed remains unresponsive off sedation, has + cough, spontaneous breathing, and gag-- repeat CT head c/w ischemic CVA, EEG and follow neurology recommendations s/p drain for Pancreatic Bed Abscess 0n 11/14 ECHO reviewed and consult to cardiology follow recs ABX per ID follow surgery recs-- S/P J-tube placement with IR on 11/12 off Vasopressors . keep MAP greater than 60 Patient with GI bleed . Hb 6.4. heparin dced. s/p IVC filter 11/13.Monitor HGB, s/p prbc 2 units on 11/13, transfuse as needed for HGb less than 7 --- follow GI recommendations GI PPX: protonix to bid Discussed with RN and RT d/w family in detail. d/w in detail and explained prognosis Total critical care time 35 minutes coordinating care and reviewing diagnostics critically ill TAYA PEREIRA MD Nov 18, 2019 10:46
--- NOTE | 2019-11-18 13:11 | PDOC ---
[facility] PROGRESS NOTE Date of Service DOS: DATE: 11/18/19 TIME: 12:59 Chief Complaint Chief Complaint Sepsis, present on admission - 2/2 c difficile. Acute Hypoxic respiratory Failure 2/2 cardiac arrest-- now requiring mechanical ventilation S/P Cardiac arrest unknown etiology, possible seizure Acute GI bleed, unknown source suspect C. difficile colitis possible ischemic colitis Status post CT-guided abscess drain placement 11/15/2019 Bilateral DVT Neutropenia and bandemia, recent C. diff infection Toxic encephalopathy secondary to medication, currently resolved Diarrhea. Recurrent C. diff? C. diff Diarrhea on last hospital stay, completed a 10 day course of antibiotics. H/o recent Severe pancreatitis s/p ex-lap with pancreatic necrosectomy, cholecystostomy tube placement, gastrostomy tube placement, tracheostomy placement, 5 drains, 1.5L ascites drained - likely gallstone Status post tracheostomy - reversed, recovered Severe protein calorie malnutrition - started G-tube feeds Physical deconditioning - PT OT followed History of Hepatitis B J tube replaced by IR during last hospitalization but tolerating TFs at night well. Hemoglobin in the afternoon, type and cross 2 units PRBC pending Hold heparin drip due to GI bleed Pending cardiology, pulmonary, ID, neuro evaluation. Change Keppra to 1000 mg IV twice daily and Depacon 500 mg every 8 per ID. Okay with Versed drip Appreciate surgery recommendations, pending review of CT scan medical versus surgical management Hold DVT prophylaxis Protonix GI prophylaxis Patient is intubated and sedated Full code Discussed with RN and LETICIA Dispo surgery is contraindicated at this time. Surrogate decision maker is Deacon Mata phone: [phone] Total critical care time spent is 45 minutes History of Present Illness History of Present Illness Mr Mata is a 49-year-old gentleman with past medical history of GERD pancreatitis history of DVT who comes to the emergency department complaining of bilateral leg swelling. At the time of my visit the patient is lying in bed in no apparent distress, he seems to be had of hearing, he is not offering many details about the story and we were asked to admit due to results of Doppler ultrasound revealing bilateral DVTs. Apparently the patient had been on Coumadin before it is unclear at this point if the patient has been taking Coumadin prior to this visit to the emergency department. Patient denies any headaches no blurred vision no strokelike symptoms no chest pain palpitations no shortness of breath has been reported. Patient denies abdominal pain no nausea vomiting or diarrhea. The patient certainly complains of discomfort over his bilateral extremities due to the edema. No other complaints were voiced, plan of care has been explained detail to the patient. Later in the day visited with nursing staff letting her concerned that patient may be having excessive sedation from his home medications that include trazodone and Remeron. Will place this on hold I have discussed this with nursing staff 11/08: Patient with recent admission to the hospital for C. difficile and still having diarrhea he had a significant bandemia which could be a consequence of ongoing C. difficile infection. 11/11: Ostomy in RUQ and PEG tube in LUQ, In bed, in NAD, eating breakfast PO, Complaining of abdominal pain and insomnia 11/12: Discussed with via phone call 11/13: Patient is sedated and intubated. S/P cardiac arrest with 3 rounds of CPR and EPI/ bicarb, transferred to ICU. 11/14: Patient did have large volume lower GI bleed with about 300 cc. Status post 2 units PRBCs. Patient's chart, labs, images were reviewed and discussed with RN 11/15: Patient seen and examined at bedside. Patient continues to have rectal bleeding with clots. 11/16: Seen and examined. Afebrile. intubated, continues to have bloody stools. On levophed. Not awakening off sedation. CT head concerning for acute CVA. Off sedation for 48 hours. Still with gag, not opening eyes. Significant stool output. WBC 20 K, Hb stable > 7. Cr improved. Vitals/I&O Vitals/I&O: Vital Signs Date Time Temp Pulse Resp B/P (MAP) Pulse Ox O2 Delivery O2 Flow Rate FiO2 11/18/19 12:00 98.6 122 16 105/71 (82) 100 Ventilator 98.6 I & O 11/17/19 11/17/19 11/18/19 15:00 23:00 07:00 Intake Total 515 ml 401 ml 1162 ml Output Total 280 ml 193 ml 210 ml Balance 235 ml 208 ml 952 ml Physical Exam Physical Exam: GENERAL: Thin, cachectic male Intubated HEENT: Norm conj. ETT NECK: Supple, no lymphadenopathy. LUNGS: Decreased breath sounds at the bases, increased Resp rate HEART: S1, S2. tachy ABDOMEN: Distended, soft, nontender, fistula in place - bloody drainage, GJ tube in place. - [place] with 3 plus edema EXTREMITIES: Edema, no cyanosis.RLE IO - old site clean DERMATOLOGIC: Warm, dry. 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 NEUROLOGIC: unable to assess PSYCHIATRIC: Unable to assess DERMATOLOGIC: No generalized rash RIJ - clean. General: Other (unresponsive ) Heart: Regular rate (sinus tach) Lungs: Other (decreased BLL) Abdomen: Other (distended, drain in place) Extremities: No cyanosis Skin: No rashes, No significant lesion Labs Labs: Laboratory Tests Test 11/18/19 05:00 11/18/19 07:40 White Blood Count 21.2 x10^3/uL (4.0-11.0) Red Blood Count 2.68 x10^6/uL (4.30-5.70) Hemoglobin 7.5 g/dL (13.0-17.5) Hematocrit 22.7 % (39.0-53.0) Mean Corpuscular Volume 85 fL (79-100) Mean Corpuscular Hemoglobin 28 pg (25-35) Mean Corpuscular Hemoglobin Concent 33 g/dL (31-37) Red Cell Distribution Width 20.0 % (11.5-14.5) Platelet Count 155 x10^3/uL (140-400) Neutrophils (%) (Auto) 88 % (31-73) Lymphocytes (%) (Auto) 4 % (24-48) Monocytes (%) (Auto) 7 % (0-9) Eosinophils (%) (Auto) 0 % (0-3) Basophils (%) (Auto) 0 % (0-3) Neutrophils # (Auto) 18.7 x10^3/uL (1.8-7.7) Lymphocytes # (Auto) 0.9 x10^3/uL (1.0-4.8) Monocytes # (Auto) 1.5 x10^3/uL (0.0-1.1) Eosinophils # (Auto) 0.0 x10^3/uL (0.0-0.7) Basophils # (Auto) 0.1 x10^3/uL (0.0-0.2) Segmented Neutrophils % 91 % (35-66) Band Neutrophils % 3 % (0-9) Atypical Lymphocytes % (Manual) 2 % (0-0) Monocytes % 4 % (0-10) Platelet Estimate Adequate (ADEQUATE) Large Platelets Present Anisocytosis Slight Sodium Level 138 mmol/L (136-145) Potassium Level 3.8 mmol/L (3.5-5.1) Chloride Level 107 mmol/L (98-107) Carbon Dioxide Level 25 mmol/L (21-32) Anion Gap 6 (6-14) Blood Urea Nitrogen 19 mg/dL (8-26) Creatinine 0.7 mg/dL (0.7-1.3) Estimated GFR (Cockcroft-Gault) 145.0 Glucose Level 129 mg/dL (70-99) Calcium Level 7.1 mg/dL (8.5-10.1) O2 Saturation 97 % (92-99) Arterial Blood pH 7.44 (7.35-7.45) Arterial Blood pCO2 at Patient Temp 28 mmHg (35-46) Arterial Blood pO2 at Patient Temp 118 mmHg (75-108) Arterial Blood HCO3 19 mmol/L (21-28) Arterial Blood Base Excess -4 mmol/L (-3-3) FiO2 40 Comment Review of Relevant I have reviewed the following items alexandra (where applicable) has been applied. Medications: Current Medications Medications (Trade) Dose Ordered Sig/Jesse Route PRN Reason Start Time Stop Time Status Last Admin Dose Admin Sodium Chloride 500 ml @ 250 mls/hr 1X ONCE IV 11/17/19 21:00 11/17/19 22:59 DC 11/17/19 20:42 Sodium Chloride 1,000 ml @ 65 mls/hr [id number] IV 11/17/19 22:30 11/18/19 10:30 DC 11/17/19 23:11 Justicifation of Admission Dx: Justifications for Admission: Justification of Admission Dx: Yes Comminuty Aquired Pneumonia: Med-High Risk Pt Sepsis: Infection JUAN ANTONIO OWUSU MD Nov 18, 2019 13:11
--- NOTE | 2019-11-18 13:29 | PDOC ---
[facility] 11/18/19 1329: SURGICAL PROGRESS NOTE DATE: 11/18/19 TIME: 13:27 Subjective off sedation, still not responding Vital Signs Vital Signs Date Time Temp Pulse Resp B/P (MAP) Pulse Ox O2 Delivery O2 Flow Rate FiO2 11/18/19 13:00 123 16 108/77 (87) 100 Ventilator 11/18/19 12:00 98.6 98.6 I&O Intake and Output 11/18/19 07:00 Intake Total 2078 ml Output Total 683 ml Balance 1395 ml IV Total 2078 ml Output Urine Total 663 ml Drainage Total 20 ml # Bowel Movements 1 PATIENT HAS A LEPE: Yes General: Other (nonresponsive ) Abdomen: Soft, Other (wound with bilious drainage) Labs Laboratory Tests Test 11/17/19 05:00 11/17/19 07:40 11/18/19 05:00 11/18/19 07:40 White Blood Count 36.4 x10^3/uL (4.0-11.0) 21.2 x10^3/uL (4.0-11.0) Red Blood Count 2.64 x10^6/uL (4.30-5.70) 2.68 x10^6/uL (4.30-5.70) Hemoglobin 7.4 g/dL (13.0-17.5) 7.5 g/dL (13.0-17.5) Hematocrit 22.1 % (39.0-53.0) 22.7 % (39.0-53.0) Mean Corpuscular Volume 84 fL (79-100) 85 fL (79-100) Mean Corpuscular Hemoglobin 28 pg (25-35) 28 pg (25-35) Mean Corpuscular Hemoglobin Concent 33 g/dL (31-37) 33 g/dL (31-37) Red Cell Distribution Width 19.7 % (11.5-14.5) 20.0 % (11.5-14.5) Platelet Count 168 x10^3/uL (140-400) 155 x10^3/uL (140-400) Neutrophils (%) (Auto) 91 % (31-73) 88 % (31-73) Lymphocytes (%) (Auto) 3 % (24-48) 4 % (24-48) Monocytes (%) (Auto) 6 % (0-9) 7 % (0-9) Eosinophils (%) (Auto) 0 % (0-3) 0 % (0-3) Basophils (%) (Auto) 1 % (0-3) 0 % (0-3) Neutrophils # (Auto) 33.1 x10^3/uL (1.8-7.7) 18.7 x10^3/uL (1.8-7.7) Lymphocytes # (Auto) 0.9 x10^3/uL (1.0-4.8) 0.9 x10^3/uL (1.0-4.8) Monocytes # (Auto) 2.1 x10^3/uL (0.0-1.1) 1.5 x10^3/uL (0.0-1.1) Eosinophils # (Auto) 0.0 x10^3/uL (0.0-0.7) 0.0 x10^3/uL (0.0-0.7) Basophils # (Auto) 0.2 x10^3/uL (0.0-0.2) 0.1 x10^3/uL (0.0-0.2) Sodium Level 137 mmol/L (136-145) 138 mmol/L (136-145) Potassium Level 4.1 mmol/L (3.5-5.1) 3.8 mmol/L (3.5-5.1) Chloride Level 105 mmol/L (98-107) 107 mmol/L (98-107) Carbon Dioxide Level 27 mmol/L (21-32) 25 mmol/L (21-32) Anion Gap 5 (6-14) 6 (6-14) Blood Urea Nitrogen 16 mg/dL (8-26) 19 mg/dL (8-26) Creatinine 1.1 mg/dL (0.7-1.3) 0.7 mg/dL (0.7-1.3) Estimated GFR (Cockcroft-Gault) 86.1 145.0 Glucose Level 131 mg/dL (70-99) 129 mg/dL (70-99) Calcium Level 6.8 mg/dL (8.5-10.1) 7.1 mg/dL (8.5-10.1) O2 Saturation 97 % (92-99) 97 % (92-99) Arterial Blood pH 7.47 (7.35-7.45) 7.44 (7.35-7.45) Arterial Blood pCO2 at Patient Temp 35 mmHg (35-46) 28 mmHg (35-46) Arterial Blood pO2 at Patient Temp 100 mmHg (75-108) 118 mmHg (75-108) Arterial Blood HCO3 25 mmol/L (21-28) 19 mmol/L (21-28) Arterial Blood Base Excess 1 mmol/L (-3-3) -4 mmol/L (-3-3) FiO2 40 40 Segmented Neutrophils % 91 % (35-66) Band Neutrophils % 3 % (0-9) Atypical Lymphocytes % (Manual) 2 % (0-0) Monocytes % 4 % (0-10) Platelet Estimate Adequate (ADEQUATE) Large Platelets Present Anisocytosis Slight Laboratory Tests Test 11/18/19 05:00 11/18/19 07:40 White Blood Count 21.2 x10^3/uL (4.0-11.0) Red Blood Count 2.68 x10^6/uL (4.30-5.70) Hemoglobin 7.5 g/dL (13.0-17.5) Hematocrit 22.7 % (39.0-53.0) Mean Corpuscular Volume 85 fL (79-100) Mean Corpuscular Hemoglobin 28 pg (25-35) Mean Corpuscular Hemoglobin Concent 33 g/dL (31-37) Red Cell Distribution Width 20.0 % (11.5-14.5) Platelet Count 155 x10^3/uL (140-400) Neutrophils (%) (Auto) 88 % (31-73) Lymphocytes (%) (Auto) 4 % (24-48) Monocytes (%) (Auto) 7 % (0-9) Eosinophils (%) (Auto) 0 % (0-3) Basophils (%) (Auto) 0 % (0-3) Neutrophils # (Auto) 18.7 x10^3/uL (1.8-7.7) Lymphocytes # (Auto) 0.9 x10^3/uL (1.0-4.8) Monocytes # (Auto) 1.5 x10^3/uL (0.0-1.1) Eosinophils # (Auto) 0.0 x10^3/uL (0.0-0.7) Basophils # (Auto) 0.1 x10^3/uL (0.0-0.2) Segmented Neutrophils % 91 % (35-66) Band Neutrophils % 3 % (0-9) Atypical Lymphocytes % (Manual) 2 % (0-0) Monocytes % 4 % (0-10) Platelet Estimate Adequate (ADEQUATE) Large Platelets Present Anisocytosis Slight Sodium Level 138 mmol/L (136-145) Potassium Level 3.8 mmol/L (3.5-5.1) Chloride Level 107 mmol/L (98-107) Carbon Dioxide Level 25 mmol/L (21-32) Anion Gap 6 (6-14) Blood Urea Nitrogen 19 mg/dL (8-26) Creatinine 0.7 mg/dL (0.7-1.3) Estimated GFR (Cockcroft-Gault) 145.0 Glucose Level 129 mg/dL (70-99) Calcium Level 7.1 mg/dL (8.5-10.1) O2 Saturation 97 % (92-99) Arterial Blood pH 7.44 (7.35-7.45) Arterial Blood pCO2 at Patient Temp 28 mmHg (35-46) Arterial Blood pO2 at Patient Temp 118 mmHg (75-108) Arterial Blood HCO3 19 mmol/L (21-28) Arterial Blood Base Excess -4 mmol/L (-3-3) FiO2 40 Assessment/Plan supportive care Justicifation of Admission Dx: Justifications for Admission: Justification of Admission Dx: Yes Comminuty Aquired Pneumonia: Med-High Risk Pt Sepsis: Infection BILL CAMACHO MD 11/18/19 1422: SURGICAL PROGRESS NOTE Assessment/Plan Agree with above, no new surgical recs [facility] Nov 18, 2019 13:29 BILL CAMACHO MD Nov 18, 2019 14:22
--- NOTE | 2019-11-18 13:38 | RAD ---
Left lower extremity arterial Doppler dated 11/18/2019. No comparison available. CLINICAL INDICATION: Cold left leg. FINDINGS: Grayscale, color-flow and spectral waveform analysis performed. There is triphasic flow throughout the left lower extremity arterial tree. No focal stenosis. Velocity measurements are within normal limits. There is soft tissue edema throughout. IMPRESSION: No evidence of hemodynamically significant left lower extremity arterial stenosis. Electronically signed by: Tab Razo MD (11/18/2019 1:35 PM) ADRIANO
[2019-11-18 16:43] LABS: HEMATOCRIT 24.2 % (39.0-53.0)
[2019-11-18] MEDS: ALPRAZolam 0.5 MG TABLET PO SCH (21:00)
--- NOTE | 2019-11-18 21:00 | NUR ---
Scheduled 2100 dose of Xanax held--patient intubated/unresponsive without any sedation on board.
--- NOTE | 2019-11-18 21:35 | NUR ---
Patient's urine output <30CC/HR since 1800, paged Dr Gibbs. Dr Gibbs returned page, notified of decreased UO, total output for day shift, no IVF running and TPN to start on 11/18. Orders received to start NS at 125CC/HR [id number], give Albumin 5% 12.5Grams IV, and don not call if UO continues to be low. See orders, I/O.
[2019-11-18] MEDS: IV NORMAL SALINE 1000ML BAG 1,000 ML IV SCH (21:58)
[2019-11-18] MEDS ORDERED: ALBUMIN HUMAN 5% 250 ML IV ONE (22:00)
[2019-11-19] VITALS (28 sets, daily range): BP systolic 87–120; BP diastolic 60–86
[2019-11-19 06:20] LABS: BASO % 0 % (0-3); EOS % 0 % (0-3); HEMATOCRIT 21.5 % (39.0-53.0); LYMPH # 0.5 x10^3/uL (1.0-4.8); LYMPH % 3 % (24-48); MEAN CORPUSCULAR HEMOGLOBIN 28 pg (25-35); MEAN CORPUSCULAR HGB CONC 33 g/dL (31-37); MEAN CORPUSCULAR VOLUME 86 fL (79-100); MONO # 1.1 x10^3/uL (0.0-1.1); MONO % 6 % (0-9); NEUT # 15.5 x10^3/uL (1.8-7.7); NEUT % 90 % (31-73); PLATELET COUNT 129 x10^3/uL (140-400); RED BLOOD COUNT 2.51 x10^6/uL (4.30-5.70); RED CELL DISTRIBUTION WIDTH 20.1 % (11.5-14.5); WHITE BLOOD COUNT 17.1 x10^3/uL (4.0-11.0)
[2019-11-19 06:33] LABS: CREATININE 0.9 mg/dL (0.7-1.3); GFR 108.5; MAGNESIUM 1.9 mg/dL (1.8-2.4); POTASSIUM 3.1 mmol/L (3.5-5.1)
[2019-11-19] MEDS: CEFEPIME HCL IV Push 1 GM VIAL. IVP SCH ×3 (06:35→21:31)
[2019-11-19] MEDS: VALPROIC ACID (AS SODIUM SALT) 500 MG in IV DEXTROSE 5% 50 ML IV SCH ×3 (06:36→21:31)
[2019-11-19] MEDS: IV NORMAL SALINE 1000ML BAG 1,000 ML IV SCH (06:36)
--- NOTE | 2019-11-19 07:15 | NUR ---
Hgb critical at 7.0 called by lab at 0631, K+ also low at 3.1 (not called by lab), Dr Gibbs paged [phone]. Dr Gibbs returned page, notfied of critical Hgb and low K+; orders received to give 1U PRBC, 20Meq KCL IV x1, recheck H/H and K= at 1200. See orders, labs. Addendum: 11/19/19 at 0726 by YOHANA ARTHUR RN Amended: Links added.
--- NOTE | 2019-11-19 07:50 | PDOC ---
Infectious Disease Note Subjective Subjective intubated on vent, unresponsive, off sedation ROS ROS no n/v/d/sob Vital Sign Vital Signs Vital Signs Date Time Temp Pulse Resp B/P (MAP) Pulse Ox O2 Delivery O2 Flow Rate FiO2 11/19/19 07:00 105 18 105/75 (85) 100 Ventilator 11/19/19 04:00 98.2 98.2 Physical Exam PHYSICAL EXAM GENERAL: Thin, cachectic male Intubated HEENT: Norm conj. ETT NECK: Supple, no lymphadenopathy. LUNGS: Decreased breath sounds at the bases, increased Resp rate HEART: S1, S2. tachy ABDOMEN: Distended, soft, nontender, fistula in place - bloody drainage, GJ tube in place. - [place] with 3 plus edema EXTREMITIES: Edema, no cyanosis.RLE IO - old site clean DERMATOLOGIC: Warm, dry. 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 NEUROLOGIC: unable to assess PSYCHIATRIC: Unable to assess DERMATOLOGIC: No generalized rash RIJ - clean. Labs Lab Laboratory Tests Test 11/18/19 16:37 11/19/19 06:00 Hemoglobin 8.0 g/dL (13.0-17.5) 7.0 g/dL (13.0-17.5) Hematocrit 24.2 % (39.0-53.0) 21.5 % (39.0-53.0) Mean Corpuscular Hemoglobin Concent 33 g/dL (31-37) 33 g/dL (31-37) White Blood Count 17.1 x10^3/uL (4.0-11.0) Red Blood Count 2.51 x10^6/uL (4.30-5.70) Mean Corpuscular Volume 86 fL (79-100) Mean Corpuscular Hemoglobin 28 pg (25-35) Red Cell Distribution Width 20.1 % (11.5-14.5) Platelet Count 129 x10^3/uL (140-400) Neutrophils (%) (Auto) 90 % (31-73) Lymphocytes (%) (Auto) 3 % (24-48) Monocytes (%) (Auto) 6 % (0-9) Eosinophils (%) (Auto) 0 % (0-3) Basophils (%) (Auto) 0 % (0-3) Neutrophils # (Auto) 15.5 x10^3/uL (1.8-7.7) Lymphocytes # (Auto) 0.5 x10^3/uL (1.0-4.8) Monocytes # (Auto) 1.1 x10^3/uL (0.0-1.1) Eosinophils # (Auto) 0.0 x10^3/uL (0.0-0.7) Basophils # (Auto) 0.0 x10^3/uL (0.0-0.2) Sodium Level 139 mmol/L (136-145) Potassium Level 3.1 mmol/L (3.5-5.1) Chloride Level 107 mmol/L (98-107) Carbon Dioxide Level 24 mmol/L (21-32) Anion Gap 8 (6-14) Blood Urea Nitrogen 18 mg/dL (8-26) Creatinine 0.9 mg/dL (0.7-1.3) Estimated GFR (Cockcroft-Gault) 108.5 Glucose Level 120 mg/dL (70-99) Calcium Level 7.0 mg/dL (8.5-10.1) Phosphorus Level 3.0 mg/dL (2.6-4.7) Magnesium Level 1.9 mg/dL (1.8-2.4) Micro Microbiology 11/15/19 Gram Stain - Final, Resulted 11/15/19 Aerobic and Anaerobic Culture, Resulted Pending 11/14/19 Blood Culture - Preliminary, Resulted NO GROWTH AFTER 2 DAYS 11/14/19 Gram Stain Evaluation - Final, Complete 11/14/19 Respiratory Culture - Final, Complete 11/14/19 Antimicrobic Susceptibility - Final, Complete 11/07/19 Urine Culture - Final, Complete Objective Assessment Fever - better? PRBCs/seizures GNR bactermia 11/13 ID FINAL ID= [CITROBACTER FREUNDI] KLEBSIELLA OXYTOCA RAOULTELLA S/p IR abd drain 11/14 Kleb and Citrobacteri in sputum - Leukocytosis - S/p Seizures 11/13 Elevated Troponin S/p IVC (actually in iliac) 11/13 Acute hypoxic resp failure intubated PEA Gj tube replaced 11/12 ? Loculated LL effusion on CT 11/12 Leukocytosis ? reactive 1. Bilateral lower extremity deep venous thrombosis 11/06 2. Clostridium difficile colitis 10/22 3. Leukocytosis with bandemia- better off abx 4. Left basilar pleural effusion and consolidation, chronic. 5. History of severe pancreatitis, status post exploratory laparotomy with pancreatic necrosectomy, cholecystotomy tube placement, gastrostomy tube placement, tracheostomy placement, five drains. Ascitic fluid drained status post tracheostomy recovered, history of hepatitis B during last admission in 07/2019. 6. Severe protein malnutrition Plan Plan of Care cont cefepime and po vanc D/w nursing prog KRISTIAN Monte MD Nov 19, 2019 07:50
[2019-11-19] MEDS ORDERED: POTASSIUM CHLORIDE 20MEQ 100 ML IV ONE (08:00)
[2019-11-19 08:28] LABS: BASE EXCESS ABG -4 mmol/L (-3-3); HCO3 ABG 20 mmol/L (21-28); PCO2 ABG 30 mmHg (35-46); PO2 ABG 134 mmHg (75-108); SAT O2 ABG 98 % (92-99)
[2019-11-19 08:33] LABS: FIO2 ABG 40/VENT
--- NOTE | 2019-11-19 08:53 | EEG ---
DATE OF SERVICE: 11/19/2019 EEG NUMBER: [id number]. OBJECTIVE: The patient is a 49-year-old male status post cardiopulmonary arrest, who had periodic lateralizing epileptiform discharges on his EEG 2 days ago. DESCRIPTION: This is a digital study. Electrodes are placed according to international 10-20 system. Bipolar and referential montages are available. INTERPRETATION: The background consists of 5-6 Hz, 20-50 microvolt activity. There continues to be periodic lateralizing epileptiform discharges over the right hemisphere. No reactivity is observed. Hyperventilation is not performed. Intermittent photic stimulation is noncontributory. No normal sleep patterns are observed. IMPRESSION: This electroencephalogram with the patient in an obtunded state is unchanged from the study of 2 days ago, with continued periodic lateralizing epileptiform discharges over the right hemisphere and a diffuse disturbance of cerebral activity. Thank you for letting us help with the patient's care. CHRISTOPHER CARL MD DR: MARCIE/justyn JOB#: [id number] / [id number]
--- NOTE | 2019-11-19 09:29 | PDOC ---
[facility] PROGRESS NOTE Date of Service DOS: DATE: 11/19/19 TIME: 09:27 Chief Complaint Chief Complaint Sepsis, present on admission - 2/2 c difficile. Acute Hypoxic respiratory Failure 2/2 cardiac arrest-- now requiring mechanical ventilation S/P Cardiac arrest unknown etiology, possible seizure Acute GI bleed, unknown source suspect C. difficile colitis possible ischemic colitis Status post CT-guided abscess drain placement 11/15/2019 Bilateral DVT Neutropenia and bandemia, recent C. diff infection Toxic encephalopathy secondary to medication, currently resolved Diarrhea. Recurrent C. diff? C. diff Diarrhea on last hospital stay, completed a 10 day course of antibiotics. H/o recent Severe pancreatitis s/p ex-lap with pancreatic necrosectomy, cholecystostomy tube placement, gastrostomy tube placement, tracheostomy placement, 5 drains, 1.5L ascites drained - likely gallstone Status post tracheostomy - reversed, recovered Severe protein calorie malnutrition - started G-tube feeds Physical deconditioning - PT OT followed History of Hepatitis B J tube replaced by IR during last hospitalization but tolerating TFs at night well. Hemoglobin in the afternoon, type and cross 2 units PRBC pending Hold heparin drip due to GI bleed Pending cardiology, pulmonary, ID, neuro evaluation. Change Keppra to 1000 mg IV twice daily and Depacon 500 mg every 8 per ID. Okay with Versed drip Appreciate surgery recommendations, pending review of CT scan medical versus surgical management Hold DVT prophylaxis Protonix GI prophylaxis Patient is intubated and sedated Full code Discussed with RN and LETICIA Dispo surgery is contraindicated at this time. Surrogate decision maker is Deacon Mata phone: [phone] Total critical care time spent is 45 minutes History of Present Illness History of Present Illness Mr Mata is a 49-year-old gentleman with past medical history of GERD pancreatitis history of DVT who comes to the emergency department complaining of bilateral leg swelling. At the time of my visit the patient is lying in bed in no apparent distress, he seems to be had of hearing, he is not offering many details about the story and we were asked to admit due to results of Doppler ultrasound revealing bilateral DVTs. Apparently the patient had been on Coumadin before it is unclear at this point if the patient has been taking Coumadin prior to this visit to the emergency department. Patient denies any headaches no blurred vision no strokelike symptoms no chest pain palpitations no shortness of breath has been reported. Patient denies abdominal pain no nausea vomiting or diarrhea. The patient certainly complains of discomfort over his bilateral extremities due to the edema. No other complaints were voiced, plan of care has been explained detail to the patient. Later in the day visited with nursing staff letting her concerned that patient may be having excessive sedation from his home medications that include trazodone and Remeron. Will place this on hold I have discussed this with nursing staff 11/08: Patient with recent admission to the hospital for C. difficile and still having diarrhea he had a significant bandemia which could be a consequence of ongoing C. difficile infection. 11/11: Ostomy in RUQ and PEG tube in LUQ, In bed, in NAD, eating breakfast PO, Complaining of abdominal pain and insomnia 11/12: Discussed with via phone call 11/13: Patient is sedated and intubated. S/P cardiac arrest with 3 rounds of CPR and EPI/ bicarb, transferred to ICU. 11/14: Patient did have large volume lower GI bleed with about 300 cc. Status post 2 units PRBCs. Patient's chart, labs, images were reviewed and discussed with RN 11/15: Patient seen and examined at bedside. Patient continues to have rectal bleeding with clots. 11/16: Seen and examined. Afebrile. intubated, continues to have bloody stools. On levophed. Not awakening off sedation. CT head concerning for acute CVA. 11/17: Off sedation for 48 hours. Still with gag, not opening eyes. Significant stool output. WBC 20 K, Hb stable > 7. Cr improved. Off sedation 72 hours, no active response, gag positive. Significant stool output, WBC 17, Hb 7 from 8.5 yesterday, K3.1. Discussed findings of EEG with neurology, plan for MRI. Plan: Replace K, transfuse 1 unit PRBC. Vitals/I&O Vitals/I&O: Vital Signs Date Time Temp Pulse Resp B/P (MAP) Pulse Ox O2 Delivery O2 Flow Rate FiO2 11/19/19 08:04 100 Ventilator 11/19/19 08:00 98.0 102 21 107/79 (88) 98.0 I & O 11/18/19 11/18/19 11/19/19 14:59 22:59 06:59 Intake Total 210 ml 220 ml 1095 ml Output Total 215 ml 1075 ml 1125 ml Balance -5 ml -855 ml -30 ml Physical Exam Physical Exam: GENERAL: Thin, cachectic male Intubated HEENT: Norm conj. ETT NECK: Supple, no lymphadenopathy. LUNGS: Decreased breath sounds at the bases, increased Resp rate HEART: S1, S2. tachy ABDOMEN: Distended, soft, nontender, fistula in place - bloody drainage, GJ tube in place. - [place] with 3 plus edema EXTREMITIES: Edema, no cyanosis.RLE IO - old site clean DERMATOLOGIC: Warm, dry. 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 NEUROLOGIC: unable to assess PSYCHIATRIC: Unable to assess DERMATOLOGIC: No generalized rash RIJ - clean. General: Other (nonresponsive ) Heart: Regular rate (sinus tach) Lungs: Other (decreased BLL) Abdomen: Soft, Other (wound with bilious drainage) Extremities: No cyanosis Skin: No rashes, No significant lesion Labs Labs: Laboratory Tests Test 11/18/19 16:37 11/19/19 06:00 11/19/19 08:00 Hemoglobin 8.0 g/dL (13.0-17.5) 7.0 g/dL (13.0-17.5) Hematocrit 24.2 % (39.0-53.0) 21.5 % (39.0-53.0) Mean Corpuscular Hemoglobin Concent 33 g/dL (31-37) 33 g/dL (31-37) White Blood Count 17.1 x10^3/uL (4.0-11.0) Red Blood Count 2.51 x10^6/uL (4.30-5.70) Mean Corpuscular Volume 86 fL (79-100) Mean Corpuscular Hemoglobin 28 pg (25-35) Red Cell Distribution Width 20.1 % (11.5-14.5) Platelet Count 129 x10^3/uL (140-400) Neutrophils (%) (Auto) 90 % (31-73) Lymphocytes (%) (Auto) 3 % (24-48) Monocytes (%) (Auto) 6 % (0-9) Eosinophils (%) (Auto) 0 % (0-3) Basophils (%) (Auto) 0 % (0-3) Neutrophils # (Auto) 15.5 x10^3/uL (1.8-7.7) Lymphocytes # (Auto) 0.5 x10^3/uL (1.0-4.8) Monocytes # (Auto) 1.1 x10^3/uL (0.0-1.1) Eosinophils # (Auto) 0.0 x10^3/uL (0.0-0.7) Basophils # (Auto) 0.0 x10^3/uL (0.0-0.2) Sodium Level 139 mmol/L (136-145) Potassium Level 3.1 mmol/L (3.5-5.1) Chloride Level 107 mmol/L (98-107) Carbon Dioxide Level 24 mmol/L (21-32) Anion Gap 8 (6-14) Blood Urea Nitrogen 18 mg/dL (8-26) Creatinine 0.9 mg/dL (0.7-1.3) Estimated GFR (Cockcroft-Gault) 108.5 Glucose Level 120 mg/dL (70-99) Calcium Level 7.0 mg/dL (8.5-10.1) Phosphorus Level 3.0 mg/dL (2.6-4.7) Magnesium Level 1.9 mg/dL (1.8-2.4) O2 Saturation 98 % (92-99) Arterial Blood pH 7.44 (7.35-7.45) Arterial Blood pCO2 at Patient Temp 30 mmHg (35-46) Arterial Blood pO2 at Patient Temp 134 mmHg (75-108) Arterial Blood HCO3 20 mmol/L (21-28) Arterial Blood Base Excess -4 mmol/L (-3-3) FiO2 40/vent Comment Review of Relevant I have reviewed the following items alexandra (where applicable) has been applied. Medications: Current Medications Medications (Trade) Dose Ordered Sig/Jesse Route PRN Reason Start Time Stop Time Status Last Admin Dose Admin Sodium Chloride 1,000 ml @ 125 mls/hr Q8H IV 11/18/19 22:00 11/19/19 13:59 11/19/19 06:36 Albumin Human 250 ml @ 62.5 mls/hr 1X ONCE IV 11/18/19 22:00 11/19/19 01:59 DC 11/18/19 22:01 Potassium Chloride/Water 100 ml @ 100 mls/hr 1X ONCE IV 11/19/19 08:00 11/19/19 08:59 DC 11/19/19 08:00 Justicifation of Admission Dx: Justifications for Admission: Justification of Admission Dx: Yes Comminuty Aquired Pneumonia: Med-High Risk Pt Sepsis: Infection JUAN ANTONIO OWUSU MD Nov 19, 2019 09:28
[2019-11-19] MEDS: PANTOPRAZOLE IV PUSH 40 MG VIAL. IVP SCH ×2 (09:51→21:14)
[2019-11-19] MEDS: FERROUS SULFATE 325 MG TABLET. PO SCH ×2 (09:51→17:29)
[2019-11-19] MEDS: VANCOMYCIN 125 MG/2.5 ML ORAL SOLUTION. PO SCH ×4 (09:52→21:19)
[2019-11-19] MEDS: levETIRAcetam 1,000 MG in IV DEXTROSE 5% 100ML 100 ML IV SCH ×2 (09:52→21:14)
[2019-11-19] MEDS: LACTOBACILLUS RHAMNOSUS GG 1 CAPSULE. PO SCH (09:52)
--- NOTE | 2019-11-19 10:07 | PDOC ---
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 Sedating medicines have been tapered. He is still on low-dose fentanyl which the nurse will presently stop. He may be a very slow metabolizer of the medications. Pancreatitis, respiratory failure, gastrointestinal hemorrhage while on anticoagulation. Poor prognosis Plan MRI brain to help plan prognosis Further more aggressive anti-seizure treatments unlikely to affect overall outcome Discussed with , still wants full aggressive care. Subjective None Objective Vital Signs Date Time Temp Pulse Resp B/P (MAP) Pulse Ox O2 Delivery O2 Flow Rate FiO2 11/19/19 08:04 100 Ventilator 11/19/19 08:00 98.0 102 21 107/79 (88) 98.0 Intake and Output 11/19/19 07:00 Intake Total 1525 ml Output Total 2405 ml Balance -880 ml IV Total 1525 ml Output Urine Total 595 ml Stool Total 1400 ml Gastric Drainage Total 300 ml Drainage Total 20 ml Other 90 ml PHYSICAL EXAM Off sedation, intubated PERRL. EOMI, positive oculocephalic reflex. CN: no focal findings. Muscle tone: normal. Muscle strength: minimal movement to pain DTR: 1+ Plantar reflex: silent Gait: not examined in bed. Sensory exam: not cooperative. Cerebellar: not cooperative Review of Relevant I have reviewed the following items alexandra (where applicable) has been applied. Labs Laboratory Tests Test 11/18/19 05:00 11/18/19 07:40 11/18/19 16:37 11/19/19 06:00 White Blood Count 21.2 x10^3/uL (4.0-11.0) 17.1 x10^3/uL (4.0-11.0) Red Blood Count 2.68 x10^6/uL (4.30-5.70) 2.51 x10^6/uL (4.30-5.70) Hemoglobin 7.5 g/dL (13.0-17.5) 8.0 g/dL (13.0-17.5) 7.0 g/dL (13.0-17.5) Hematocrit 22.7 % (39.0-53.0) 24.2 % (39.0-53.0) 21.5 % (39.0-53.0) Mean Corpuscular Volume 85 fL (79-100) 86 fL (79-100) Mean Corpuscular Hemoglobin 28 pg (25-35) 28 pg (25-35) Mean Corpuscular Hemoglobin Concent 33 g/dL (31-37) 33 g/dL (31-37) 33 g/dL (31-37) Red Cell Distribution Width 20.0 % (11.5-14.5) 20.1 % (11.5-14.5) Platelet Count 155 x10^3/uL (140-400) 129 x10^3/uL (140-400) Neutrophils (%) (Auto) 88 % (31-73) 90 % (31-73) Lymphocytes (%) (Auto) 4 % (24-48) 3 % (24-48) Monocytes (%) (Auto) 7 % (0-9) 6 % (0-9) Eosinophils (%) (Auto) 0 % (0-3) 0 % (0-3) Basophils (%) (Auto) 0 % (0-3) 0 % (0-3) Neutrophils # (Auto) 18.7 x10^3/uL (1.8-7.7) 15.5 x10^3/uL (1.8-7.7) Lymphocytes # (Auto) 0.9 x10^3/uL (1.0-4.8) 0.5 x10^3/uL (1.0-4.8) Monocytes # (Auto) 1.5 x10^3/uL (0.0-1.1) 1.1 x10^3/uL (0.0-1.1) Eosinophils # (Auto) 0.0 x10^3/uL (0.0-0.7) 0.0 x10^3/uL (0.0-0.7) Basophils # (Auto) 0.1 x10^3/uL (0.0-0.2) 0.0 x10^3/uL (0.0-0.2) Segmented Neutrophils % 91 % (35-66) Band Neutrophils % 3 % (0-9) Atypical Lymphocytes % (Manual) 2 % (0-0) Monocytes % 4 % (0-10) Platelet Estimate Adequate (ADEQUATE) Large Platelets Present Anisocytosis Slight Sodium Level 138 mmol/L (136-145) 139 mmol/L (136-145) Potassium Level 3.8 mmol/L (3.5-5.1) 3.1 mmol/L (3.5-5.1) Chloride Level 107 mmol/L (98-107) 107 mmol/L (98-107) Carbon Dioxide Level 25 mmol/L (21-32) 24 mmol/L (21-32) Anion Gap 6 (6-14) 8 (6-14) Blood Urea Nitrogen 19 mg/dL (8-26) 18 mg/dL (8-26) Creatinine 0.7 mg/dL (0.7-1.3) 0.9 mg/dL (0.7-1.3) Estimated GFR (Cockcroft-Gault) 145.0 108.5 Glucose Level 129 mg/dL (70-99) 120 mg/dL (70-99) Calcium Level 7.1 mg/dL (8.5-10.1) 7.0 mg/dL (8.5-10.1) O2 Saturation 97 % (92-99) Arterial Blood pH 7.44 (7.35-7.45) Arterial Blood pCO2 at Patient Temp 28 mmHg (35-46) Arterial Blood pO2 at Patient Temp 118 mmHg (75-108) Arterial Blood HCO3 19 mmol/L (21-28) Arterial Blood Base Excess -4 mmol/L (-3-3) FiO2 40 Phosphorus Level 3.0 mg/dL (2.6-4.7) Magnesium Level 1.9 mg/dL (1.8-2.4) Test 11/19/19 08:00 O2 Saturation 98 % (92-99) Arterial Blood pH 7.44 (7.35-7.45) Arterial Blood pCO2 at Patient Temp 30 mmHg (35-46) Arterial Blood pO2 at Patient Temp 134 mmHg (75-108) Arterial Blood HCO3 20 mmol/L (21-28) Arterial Blood Base Excess -4 mmol/L (-3-3) FiO2 40/vent Laboratory Tests Test 11/18/19 16:37 11/19/19 06:00 11/19/19 08:00 Hemoglobin 8.0 g/dL (13.0-17.5) 7.0 g/dL (13.0-17.5) Hematocrit 24.2 % (39.0-53.0) 21.5 % (39.0-53.0) Mean Corpuscular Hemoglobin Concent 33 g/dL (31-37) 33 g/dL (31-37) White Blood Count 17.1 x10^3/uL (4.0-11.0) Red Blood Count 2.51 x10^6/uL (4.30-5.70) Mean Corpuscular Volume 86 fL (79-100) Mean Corpuscular Hemoglobin 28 pg (25-35) Red Cell Distribution Width 20.1 % (11.5-14.5) Platelet Count 129 x10^3/uL (140-400) Neutrophils (%) (Auto) 90 % (31-73) Lymphocytes (%) (Auto) 3 % (24-48) Monocytes (%) (Auto) 6 % (0-9) Eosinophils (%) (Auto) 0 % (0-3) Basophils (%) (Auto) 0 % (0-3) Neutrophils # (Auto) 15.5 x10^3/uL (1.8-7.7) Lymphocytes # (Auto) 0.5 x10^3/uL (1.0-4.8) Monocytes # (Auto) 1.1 x10^3/uL (0.0-1.1) Eosinophils # (Auto) 0.0 x10^3/uL (0.0-0.7) Basophils # (Auto) 0.0 x10^3/uL (0.0-0.2) Sodium Level 139 mmol/L (136-145) Potassium Level 3.1 mmol/L (3.5-5.1) Chloride Level 107 mmol/L (98-107) Carbon Dioxide Level 24 mmol/L (21-32) Anion Gap 8 (6-14) Blood Urea Nitrogen 18 mg/dL (8-26) Creatinine 0.9 mg/dL (0.7-1.3) Estimated GFR (Cockcroft-Gault) 108.5 Glucose Level 120 mg/dL (70-99) Calcium Level 7.0 mg/dL (8.5-10.1) Phosphorus Level 3.0 mg/dL (2.6-4.7) Magnesium Level 1.9 mg/dL (1.8-2.4) O2 Saturation 98 % (92-99) Arterial Blood pH 7.44 (7.35-7.45) Arterial Blood pCO2 at Patient Temp 30 mmHg (35-46) Arterial Blood pO2 at Patient Temp 134 mmHg (75-108) Arterial Blood HCO3 20 mmol/L (21-28) Arterial Blood Base Excess -4 mmol/L (-3-3) FiO2 40/vent Microbiology 11/15/19 Gram Stain - Final, Resulted 11/15/19 Aerobic and Anaerobic Culture - Preliminary, Resulted 11/15/19 Antimicrobic Susceptibility - Preliminary, Resulted 11/14/19 Blood Culture - Preliminary, Resulted NO GROWTH AFTER 4 DAYS 11/14/19 Gram Stain Evaluation - Final, Complete 11/14/19 Respiratory Culture - Final, Complete 11/14/19 Antimicrobic Susceptibility - Final, Complete 11/07/19 Urine Culture - Final, Complete Medications Current Medications Ceftriaxone Sodium (Rocephin) 1 gm 1X ONCE IVP ; Start 11/08/19 at 00:00; Stop 11/08/19 at 01:23; Status DC Enoxaparin Sodium (Lovenox 80mg Syringe) 80 mg 1X ONCE SQ Last administered on 11/08/19at 02:43; Start 11/08/19 at 00:00; Stop 11/08/19 at 00:01; Status DC Ceftriaxone Sodium (Rocephin Im) 1 gm 1X ONCE IM Last administered on 11/08/19a t 02:42; Start 11/08/19 at 01:45; Stop 11/08/19 at 01:46; Status DC Lorazepam (Ativan) 0.5 mg 1X ONCE PO Last administered on 11/08/19at 03:28; Start 11/08/19 at 03:15; Stop 11/08/19 at 03:16; Status DC Acetaminophen (Tylenol) 500 mg PRN Q6HRS PRN PO FEVER Last administered on 11/12/19at 04:36; Start 11/08/19 at 07:30 Alprazolam (Xanax) 0.5 mg HS PO Last administered on 11/11/19at 20:38; Start 11/08/19 at 21:00 Buspirone HCl (Buspar) 10 mg BIDACBL PO Last administered on 11/08/19at 10:54; Start 11/08/19 at 07:30; Stop 11/08/19 at 11:46; Status DC Ferrous Sulfate (Feosol) 325 mg BIDWMEALS PO Last administered on 11/19/19at 09:51; Start 11/08/19 at 08:00 Gabapentin (Neurontin) 100 mg TID PO Last administered on 11/08/19at 10:54; Start 11/08/19 at 09:00; Stop 11/08/19 at 11:46; Status DC Mirtazapine (Remeron) 15 mg QHS PO ; Start 11/08/19 at 21:00; Stop 11/08/19 at 17:19; Status DC Pantoprazole Sodium (Protonix) 40 mg DAILYAC PO Last administered on 11/15/19at 08:59; Start 11/08/19 at 08:00; Stop 11/15/19 at 12:56; Status DC Trazodone HCl (Desyrel) 50 mg QHS PO ; Start 11/08/19 at 21:00; Stop 11/08/19 at 17:19; Status DC Oxycodone HCl (Roxicodone) 15 mg PRN Q6HRS PRN PO PAIN Last administered on 11/13/19at 11:01; Start 11/08/19 at 07:45 Apixaban (Eliquis) 10 mg BID PO Last administered on 11/13/19at 21:32; Start 11/08/19 at 09:00; Stop 11/14/19 at 10:08; Status DC Apixaban (Eliquis) 5 mg BID PO ; Start 11/15/19 at 09:00; Stop 11/14/19 at 10:08; Status DC Info (Anti-Coagulation Monitoring By Pharmacy) 1 each PRN DAILY PRN MC SEE COMMENTS Last administered on 11/13/19at 15:20; Start 11/08/19 at 07:45 Vancomycin HCl (Vancomycin Oral Solution) 125 mg [id number] PO Last administered on 11/08/19at 20:48; Start 11/08/19 at 17:30; Stop 11/09/19 at 09:55; Status DC Vancomycin HCl (Vancomycin Oral Solution) 250 mg [id number] PO Last administered on 11/11/19at 20:38; Start 11/09/19 at 13:00; Stop 11/12/19 at 09:03; Status DC Lactobacillus Rhamnosus (Culturelle) 1 cap BID PO Last administered on 11/19/19at 09:52; Start 11/09/19 at 21:00 Piperacillin Sod/ Tazobactam Sod 3.375 gm/Sodium Chloride 50 ml @ 100 mls/hr Q6HRS IV Last administered on 11/10/19at 05:58; Start 11/09/19 at 18:00; Stop 11/10/19 at 11:45; Status DC Temazepam (Restoril) 15 mg PRN QHS PRN PO INSOMNIA Last administered on 11/12/19at 23:15; Start 11/12/19 at 09:00 Vancomycin HCl (Vancomycin Oral Solution) 125 mg [id number] PO Last administered on 11/19/19at 09:52; Start 11/12/19 at 10:00 Iohexol (Omnipaque 350 Mg/ml) 100 ml 1X ONCE IV Last administered on 11/13/19at 08:15; Start 11/13/19 at 08:15; Stop 11/13/19 at 08:22; Status DC Info (CONTRAST GIVEN -- Rx MONITORING) 1 each PRN DAILY PRN MC SEE COMMENTS; Start 11/13/19 at 08:30; Stop 11/13/19 at 09:04; Status DC Fentanyl Citrate (Fentanyl 2ml Vial) 100 mcg STK-MED ONCE .ROUTE ; Start 11/13/19 at 08:43; Stop 11/13/19 at 08:43; Status DC Iohexol (Omnipaque 240 Mg/ml) 50 ml STK-MED ONCE .ROUTE ; Start 11/13/19 at 08:45; Stop 11/13/19 at 08:46; Status DC Fentanyl Citrate (Fentanyl 2ml Vial) 50 mcg 1X ONCE IV Last administered on 11/13/19at 09:37; Start 11/13/19 at 09:00; Stop 11/13/19 at 09:03; Status DC Iohexol (Omnipaque 240 Mg/ml) 50 ml 1X ONCE PO Last administered on 11/13/19at 09:37; Start 11/13/19 at 09:00; Stop 11/13/19 at 09:03; Status DC Info (CONTRAST GIVEN -- Rx MONITORING) 1 each PRN DAILY PRN MC SEE COMMENTS; Start 11/13/19 at 09:15; Stop 11/15/19 at 09:14; Status DC Morphine Sulfate (Morphine Sulfate) 2 mg PRN Q2HR PRN IV PAIN Last administered on 11/13/19at 11:34; Start 11/13/19 at 11:30; Stop 11/13/19 at 13:53; Status DC Morphine Sulfate (Morphine Sulfate) 4 mg PRN Q2HR PRN IVP MODERATE TO SEVERE PAIN Last administered on 11/14/19at 08:16; Start 11/13/19 at 14:00 Ondansetron HCl (Zofran) 4 mg PRN Q6HRS PRN IVP NAUSEA/VOMITING Last administered on 11/14/19at 00:13; Start 11/13/19 at 19:30 Dextrose (Dextrose 50%-Water Syringe) 25 gm STK-MED ONCE IV ; Start 11/14/19 at 07:28; Stop 11/14/19 at 07:28; Status DC Epinephrine HCl 5 mg/Sodium Chloride 255 ml @ 23.47 mls/ hr 1X ONCE IV ; Start 11/14/19 at 08:00; Stop 11/14/19 at 18:51; Status DC Fentanyl Citrate 30 ml @ 0 mls/hr CONT PRN IV SEE PROTOCOL Last administered on 11/16/19at 12:15; Start 11/14/19 at 08:15 Propofol 100 ml @ 0 mls/hr CONT PRN IV SEE PROTOCOL; Start 11/14/19 at 08:15 Midazolam HCl 100 ml @ 0 mls/hr CONT PRN IV SEE PROTOCOL Last administered on 11/15/19at 08:36; Start 11/14/19 at 08:15 Meropenem 500 mg/ Sodium Chloride 50 ml @ 100 mls/hr Q6HRS IV Last administered on 11/15/19at 05:29; Start 11/14/19 at 12:00; Stop 11/15/19 at 06:10; Status DC Vancomycin HCl (Vanco Per Pharmacy) 1 each PRN DAILY PRN MC SEE COMMENTS Last administered on 11/17/19at 09:32; Start 11/14/19 at 09:00; Stop 11/18/19 at 08:42; Status DC Metronidazole 100 ml @ 100 mls/hr Q8HRS IV Last administered on 11/18/19at 05:34; Start 11/14/19 at 12:00; Stop 11/18/19 at 08:38; Status DC Micafungin Sodium 100 mg/Dextrose 100 ml @ 100 mls/hr Q24H IV Last administered on 11/18/19at 08:21; Start 11/14/19 at 09:00; Stop 11/18/19 at 08:38; Status DC Metronidazole 100 ml @ 100 mls/hr Q8HRS IV ; Start 11/14/19 at 09:05; Stop 11/14/19 at 13:38; Status DC Vancomycin HCl 2 gm/Sodium Chloride 500 ml @ 250 mls/hr 1X ONCE IV Last administered on 11/14/19at 12:04; Start 11/14/19 at 10:00; Stop 11/14/19 at 11:59; Status DC Norepinephrine Bitartrate 8 mg/ Dextrose 258 ml @ 14.841 mls/ hr CONT PRN IV PER PROTOCOL Last administered on 11/16/19at 21:56; Start 11/14/19 at 09:30 Heparin Sodium/ Dextrose 250 ml @ 9.2 mls/hr CONT PRN IV PER PROTOCOL; Start 11/14/19 at 10:00; Stop 11/14/19 at 16:18; Status DC Heparin Sodium (Porcine) (Heparin Sodium) 1,900 unit PRN Q6HRS PRN IV FOR UFH LEVEL LESS THAN 0.2; Start 11/14/19 at 10:00; Stop 11/14/19 at 16:18; Status DC Heparin Sodium (Porcine) (Heparin Sodium) 4,000 unit 1X ONCE IV ; Start 11/13 at 10:00; Stop 11/14/19 at 16:18; Status DC Aspirin (Woodrow Aspirin) 325 mg 1X ONCE JT ; Start 11/14/19 at 10:30; Stop 10/16 05/05 at 16:18; Status DC Sodium Chloride 1,000 ml @ 500 mls/hr Q2H IV Last administered on 11/14/19at 13:31; Start 11/14/19 at 11:30; Stop 11/14/19 at 15:29; Status DC Lidocaine HCl (Buffered Lidocaine 1%) 3 ml STK-MED ONCE .ROUTE ; Start 11/14/19 at 15:06; Stop 11/14/19 at 15:07; Status DC Iohexol (Omnipaque 240 Mg/ml) 50 ml STK-MED ONCE .ROUTE ; Start 11/14/19 at 15:06; Stop 11/14/19 at 15:07; Status DC Lidocaine HCl (Buffered Lidocaine 1%) 6 ml 1X ONCE INJ Last administered on 11/14/19at 16:51; Start 11/14/19 at 16:15; Stop 11/14/19 at 16:16; Status DC Iohexol (Omnipaque 240 Mg/ml) 50 ml 1X ONCE IJ Last administered on 11/14/19at 16:52; Start 11/14/19 at 16:15; Stop 11/14/19 at 16:16; Status DC Iohexol (Omnipaque 240 Mg/ml) 50 ml STK-MED ONCE .ROUTE ; Start 11/14/19 at 16:09; Stop 11/14/19 at 16:09; Status DC Levetiracetam 1000 mg/Dextrose 110 ml @ 440 mls/hr 1X ONCE IV Last administered on 11/14/19at 17:09; Start 11/14/19 at 16:15; Stop 11/14/19 at 16:29; Status DC Levetiracetam 500 mg/Dextrose 105 ml @ 420 mls/hr Q12HR IV Last administered on 11/14/19at 20:55; Start 11/14/19 at 21:00; Stop 11/14/19 at 21:56; Status DC Iohexol (Omnipaque 240 Mg/ml) 50 ml STK-MED ONCE .ROUTE ; Start 11/14/19 at 16:14; Stop 11/14/19 at 16:15; Status DC Vancomycin HCl 1.25 gm/Sodium Chloride 250 ml @ 167 mls/hr Q12H IV Last administered on 11/17/19at 23:39; Start 11/15/19 at 00:01; Stop 11/18/19 at 08:38; Status DC Vancomycin HCl (Vancomycin Trough Level) 1 each 1X ONCE MC Last administered on 11/15/19at 23:30; Start 11/15/19 at 23:30; Stop 11/15/19 at 23:31; Status DC Heparin Sodium/ Sodium Chloride 500 ml @ As Directed STK-MED ONCE .ROUTE ; Start 11/14/19 at 16:41; Stop 11/14/19 at 16:41; Status DC Heparin Sodium/ Sodium Chloride (HEPARIN for ARTERIAL LINE FLUSH) 1,000 unit 1X ONCE IV Last administered on 11/14/19at 16:54; Start 11/14/19 at 17:00; Stop 11/14/19 at 17:01; Status DC Levetiracetam 500 mg/Dextrose 105 ml @ 420 mls/hr 1X ONCE IV Last administered on 11/14/19at 22:02; Start 11/14/19 at 22:30; Stop 11/14/19 at 22:44; Status DC Levetiracetam 1000 mg/Dextrose 110 ml @ 440 mls/hr Q12HR IV Last administered on 11/19/19at 09:52; Start 11/15/19 at 09:00 Valproic Acid 1000 mg/Dextrose 60 ml @ 55 mls/hr 1X ONCE IV Last administered on 11/14/19at 23:01; Start 11/14/19 at 23:00; Stop 11/15/19 at 00:05; Status DC Valproic Acid 500 mg/Dextrose 55 ml @ 55 mls/hr Q8HRS IV Last administered on 11/19/19at 06:36; Start 11/15/19 at 06:00 Acetaminophen (Tylenol) 650 mg PRN Q6HRS PRN PEG MILD PAIN/TEMP > 100.3'F Last administered on 11/15/19at 04:33; Start 11/15/19 at 04:15 Cefepime HCl (Maxipime) 1 gm Q8HRS IVP Last administered on 11/19/19at 06:35; Start 11/15/19 at 07:00 Sodium Bicarbonate (Sodium Bicarb Adult 8.4% Syr) 50 meq 1X ONCE IV Last administered on 11/15/19at 10:16; Start 11/15/19 at 10:15; Stop 11/15/19 at 10:16; Status DC Lidocaine HCl (Buffered Lidocaine 1%) 3 ml STK-MED ONCE .ROUTE ; Start 11/15/19 at 12:38; Stop 11/15/19 at 12:38; Status DC Pantoprazole Sodium (PROTONIX VIAL for IV PUSH) 40 mg DAILYAC IVP Last administered on 11/16/19at 07:58; Start 11/16/19 at 07:30; Stop 11/16/19 at 11:59; Status DC Lidocaine HCl (Buffered Lidocaine 1%) 6 ml 1X ONCE INJ Last administered on 11/15/19at 14:15; Start 11/15/19 at 14:15; Stop 11/15/19 at 14:20; Status DC Pantoprazole Sodium (PROTONIX VIAL for IV PUSH) 40 mg BID IVP Last administered on 11/19/19at 09:51; Start 11/16/19 at 21:00 Dextrose (Dextrose 50%-Water Syringe) 25 gm STK-MED ONCE IV ; Start 11/14/19 at 07:30; Stop 11/17/19 at 09:05; Status DC Sodium Chloride 500 ml @ 250 mls/hr 1X ONCE IV Last administered on 11/17/19at 20:42; Start 11/17/19 at 21:00; Stop 11/17/19 at 22:59; Status DC Sodium Chloride 1,000 ml @ 65 mls/hr [id number] IV Last administered on 11/17/19at 23:11; Start 11/17/19 at 22:30; Stop 11/18/19 at 10:30; Status DC Info (Tpn Per Pharmacy) 1 each PRN DAILY PRN MC SEE COMMENTS; Start 11/18/19 at 19:00 Sodium Chloride 1,000 ml @ 125 mls/hr Q8H IV Last administered on 11/19/19at 06:36; Start 11/18/19 at 22:00; Stop 11/19/19 at 13:59 Albumin Human 250 ml @ 62.5 mls/hr 1X ONCE IV Last administered on 11/18/19at 22:01; Start 11/18/19 at 22:00; Stop 11/19/19 at 01:59; Status DC Potassium Chloride/Water 100 ml @ 100 mls/hr 1X ONCE IV Last administered on 11/19/19at 08:00; Start 11/19/19 at 08:00; Stop 11/19/19 at 08:59; Status DC Active Scripts Active Oxycodone Hcl Immed.release (Oxycodone Hcl) 15 Mg Tablet 15 Mg PO PRN Q6HRS PRN 5 Days Reported Remeron (Mirtazapine) 15 Mg Tablet 1 Tab PO QHS Buspirone Hcl 10 Mg Tablet 1 Tab PO BIDACBL Alprazolam 0.5 Mg Tablet 1 Tab PO HS Acetaminophen 500 Mg Tablet 1 Tab PO PRN Q6HRS PRN 15 Days Ferrous Sulfate 325 Mg Tablet 65 Mg PO BID Pantoprazole Sodium (Pantoprazole Sodium) 40 Mg Tablet.dr 40 Mg PO DAILYAC Trazodone Hcl 50 Mg Tablet 1 Tab PO QHS Gabapentin (Gabapentin) 100 Mg Capsule 100 Mg PO TID Vitals/I & O Vital Sign - Last 24 Hours 11/18/19 11/18/19 11/18/19 11/18/19 11:00 11:27 12:00 12:00 Temp 98.6 98.6 Pulse 117 122 Resp 16 16 B/P (MAP) 97/71 (80) 105/71 (82) Pulse Ox 100 100 100 O2 Delivery Ventilator Ventilator Mechanical Ventilator Ventilator 11/18/19 11/18/19 11/18/19 11/18/19 13:00 14:00 15:00 16:00 Pulse 123 120 122 122 Resp 16 16 16 16 B/P (MAP) 108/77 (87) 94/80 (85) 101/80 (87) 105/78 (87) Pulse Ox 100 100 100 100 O2 Delivery Ventilator Ventilator Ventilator Ventilator 11/18/19 11/18/19 11/18/19 11/18/19 16:12 16:40 17:20 18:00 Temp 98.9 98.9 Pulse 122 117 Resp 36 30 B/P (MAP) 106/81 (89) 112/74 (87) Pulse Ox 100 100 100 O2 Delivery Ventilator Mechanical Ventilator Ventilator Ventilator 11/18/19 11/18/19 11/18/19 11/18/19 19:00 19:30 20:00 20:00 Temp 98.4 98.4 Pulse 123 121 Resp 30 22 B/P (MAP) 104/80 (88) 103/83 (90) Pulse Ox 100 100 100 O2 Delivery Ventilator Ventilator Mechanical Ventilator Ventilator 11/18/19 11/18/19 11/18/19 11/18/19 21:00 21:20 22:00 23:00 Pulse 126 118 110 Resp 26 22 18 B/P (MAP) 102/76 (85) 108/81 (90) 113/77 (89) Pulse Ox 100 100 100 100 O2 Delivery Ventilator Ventilator Ventilator Ventilator 11/18/19 11/18/19 11/18/19 11/19/19 23:30 23:59 23:59 01:00 Temp 97.9 97.9 Pulse 108 110 Resp 18 18 B/P (MAP) 105/80 (88) 90/70 (77) Pulse Ox 100 100 100 O2 Delivery Ventilator Mechanical Ventilator Ventilator Ventilator 11/19/19 11/19/19 11/19/19 11/19/19 02:00 02:41 03:00 04:00 Temp 98.2 98.2 Pulse 100 108 110 Resp 18 18 20 B/P (MAP) 98/67 (77) 102/65 (77) 120/86 (97) Pulse Ox 100 100 100 100 O2 Delivery Ventilator Ventilator Ventilator Ventilator 11/19/19 11/19/19 11/19/19 11/19/19 04:00 05:00 05:24 06:00 Pulse 107 103 Resp 20 18 B/P (MAP) 110/79 (89) 102/70 (81) Pulse Ox 100 100 100 O2 Delivery Mechanical Ventilator Ventilator Ventilator Ventilator 11/19/19 11/19/19 11/19/19 07:00 08:00 08:04 Temp 98.0 98.0 Pulse 105 102 Resp 18 21 B/P (MAP) 105/75 (85) 107/79 (88) Pulse Ox 100 100 100 O2 Delivery Ventilator Ventilator Ventilator Intake and Output 11/18/19 11/18/19 11/19/19 15:00 23:00 07:00 Intake Total 210 ml 220 ml 1095 ml Output Total 205 ml 1070 ml 1130 ml Balance 5 ml -850 ml -35 ml Justicifation of Admission Dx: Justifications for Admission: Justification of Admission Dx: Yes Comminuty Aquired Pneumonia: Med-High Risk Pt Sepsis: Infection CHRISTOPHER CARL MD Nov 19, 2019 10:07
[2019-11-19] MEDS: TPN PER PHARMACY MC PRN (10:17)
--- NOTE | 2019-11-19 10:26 | NUR ---
Pharmacy TPN Dosing Note S: CHRISTOPHER NEWSOME is a 49 year old M Currently receiving Central Continuous TPN started 11/19/19 B:Pertinent PMH: NPO, GI bleed Height: 5 feet, 9 inches Weight: 77.6 kg Current diet: NPO LABS: Sodium: 139 Potassium: 3.1 Chloride: 107 Calcium: 7.0 Corrected Calcium: 9.56 Magnesium: 1.9 CO2: 24 SCr: 0.9 Glucose: 120 Albumin: 0.8 AST: 57 ALT: 46 TPN FORMULA: TPN TYPE: Central Continuous AMINO ACIDS: 90 gm DEXTROSE: 225 gm LIPIDS: 20 gm SODIUM CHLORIDE: 90 mEq POTASSIUM CHLORIDE: 50 mEq POTASSIUM PHOSPHATE: 13.6 mmol MAGNESIUM: 10 mEq CALCIUM: 0 mEq MULTIPLE VITAMIN: 10 ml TRACE ELEMENTS: 1 ml(s) TPN PLAN: Initiate TPN with standard electrolytes and macronutrients per driver's education instructor rec's. R: Begin TPN Will monitor electrolytes, glucose, and tolerance to TPN. Azul Rodriges Taylor, 11/19/19 1026
--- NOTE | 2019-11-19 10:35 | PDOC ---
PULMONARY PROGRESS NOTES DATE: 11/19/19 TIME: 10:30 Subjective S/P cardiac arrest with 3 rounds of CPR and EPI/ bicarb 11/13, intubated, off sedation since 48 hrs. does trigger vent but remains non responsive Off levophed seizures post arrest suspected brain anoxia/ ct head with ischemic cva s/p IVC filter for DVT and GI bleed/ No PE Vitals Vital Signs Date Time Temp Pulse Resp B/P (MAP) Pulse Ox O2 Delivery O2 Flow Rate FiO2 11/19/19 08:04 100 Ventilator 11/19/19 08:00 98.0 102 21 107/79 (88) 98.0 Comments unable to obtain intubated HEENT: Other (nc at perrl nose clear orally intubated neck no lad no thyromegaly) Lungs: Other (decreased BLL) Cardiovascular: S1, S2 Abdomen: Other (less distended doft deminished bs) Extremities: Other (2+ edema, less cold left foot) Skin: Warm Labs Laboratory Tests Test 11/18/19 05:00 11/18/19 07:40 11/18/19 16:37 11/19/19 06:00 White Blood Count 21.2 x10^3/uL (4.0-11.0) 17.1 x10^3/uL (4.0-11.0) Red Blood Count 2.68 x10^6/uL (4.30-5.70) 2.51 x10^6/uL (4.30-5.70) Hemoglobin 7.5 g/dL (13.0-17.5) 8.0 g/dL (13.0-17.5) 7.0 g/dL (13.0-17.5) Hematocrit 22.7 % (39.0-53.0) 24.2 % (39.0-53.0) 21.5 % (39.0-53.0) Mean Corpuscular Volume 85 fL (79-100) 86 fL (79-100) Mean Corpuscular Hemoglobin 28 pg (25-35) 28 pg (25-35) Mean Corpuscular Hemoglobin Concent 33 g/dL (31-37) 33 g/dL (31-37) 33 g/dL (31-37) Red Cell Distribution Width 20.0 % (11.5-14.5) 20.1 % (11.5-14.5) Platelet Count 155 x10^3/uL (140-400) 129 x10^3/uL (140-400) Neutrophils (%) (Auto) 88 % (31-73) 90 % (31-73) Lymphocytes (%) (Auto) 4 % (24-48) 3 % (24-48) Monocytes (%) (Auto) 7 % (0-9) 6 % (0-9) Eosinophils (%) (Auto) 0 % (0-3) 0 % (0-3) Basophils (%) (Auto) 0 % (0-3) 0 % (0-3) Neutrophils # (Auto) 18.7 x10^3/uL (1.8-7.7) 15.5 x10^3/uL (1.8-7.7) Lymphocytes # (Auto) 0.9 x10^3/uL (1.0-4.8) 0.5 x10^3/uL (1.0-4.8) Monocytes # (Auto) 1.5 x10^3/uL (0.0-1.1) 1.1 x10^3/uL (0.0-1.1) Eosinophils # (Auto) 0.0 x10^3/uL (0.0-0.7) 0.0 x10^3/uL (0.0-0.7) Basophils # (Auto) 0.1 x10^3/uL (0.0-0.2) 0.0 x10^3/uL (0.0-0.2) Segmented Neutrophils % 91 % (35-66) Band Neutrophils % 3 % (0-9) Atypical Lymphocytes % (Manual) 2 % (0-0) Monocytes % 4 % (0-10) Platelet Estimate Adequate (ADEQUATE) Large Platelets Present Anisocytosis Slight Sodium Level 138 mmol/L (136-145) 139 mmol/L (136-145) Potassium Level 3.8 mmol/L (3.5-5.1) 3.1 mmol/L (3.5-5.1) Chloride Level 107 mmol/L (98-107) 107 mmol/L (98-107) Carbon Dioxide Level 25 mmol/L (21-32) 24 mmol/L (21-32) Anion Gap 6 (6-14) 8 (6-14) Blood Urea Nitrogen 19 mg/dL (8-26) 18 mg/dL (8-26) Creatinine 0.7 mg/dL (0.7-1.3) 0.9 mg/dL (0.7-1.3) Estimated GFR (Cockcroft-Gault) 145.0 108.5 Glucose Level 129 mg/dL (70-99) 120 mg/dL (70-99) Calcium Level 7.1 mg/dL (8.5-10.1) 7.0 mg/dL (8.5-10.1) O2 Saturation 97 % (92-99) Arterial Blood pH 7.44 (7.35-7.45) Arterial Blood pCO2 at Patient Temp 28 mmHg (35-46) Arterial Blood pO2 at Patient Temp 118 mmHg (75-108) Arterial Blood HCO3 19 mmol/L (21-28) Arterial Blood Base Excess -4 mmol/L (-3-3) FiO2 40 Phosphorus Level 3.0 mg/dL (2.6-4.7) Magnesium Level 1.9 mg/dL (1.8-2.4) Test 11/19/19 08:00 O2 Saturation 98 % (92-99) Arterial Blood pH 7.44 (7.35-7.45) Arterial Blood pCO2 at Patient Temp 30 mmHg (35-46) Arterial Blood pO2 at Patient Temp 134 mmHg (75-108) Arterial Blood HCO3 20 mmol/L (21-28) Arterial Blood Base Excess -4 mmol/L (-3-3) FiO2 40/vent Laboratory Tests Test 11/18/19 16:37 11/19/19 06:00 11/19/19 08:00 Hemoglobin 8.0 g/dL (13.0-17.5) 7.0 g/dL (13.0-17.5) Hematocrit 24.2 % (39.0-53.0) 21.5 % (39.0-53.0) Mean Corpuscular Hemoglobin Concent 33 g/dL (31-37) 33 g/dL (31-37) White Blood Count 17.1 x10^3/uL (4.0-11.0) Red Blood Count 2.51 x10^6/uL (4.30-5.70) Mean Corpuscular Volume 86 fL (79-100) Mean Corpuscular Hemoglobin 28 pg (25-35) Red Cell Distribution Width 20.1 % (11.5-14.5) Platelet Count 129 x10^3/uL (140-400) Neutrophils (%) (Auto) 90 % (31-73) Lymphocytes (%) (Auto) 3 % (24-48) Monocytes (%) (Auto) 6 % (0-9) Eosinophils (%) (Auto) 0 % (0-3) Basophils (%) (Auto) 0 % (0-3) Neutrophils # (Auto) 15.5 x10^3/uL (1.8-7.7) Lymphocytes # (Auto) 0.5 x10^3/uL (1.0-4.8) Monocytes # (Auto) 1.1 x10^3/uL (0.0-1.1) Eosinophils # (Auto) 0.0 x10^3/uL (0.0-0.7) Basophils # (Auto) 0.0 x10^3/uL (0.0-0.2) Sodium Level 139 mmol/L (136-145) Potassium Level 3.1 mmol/L (3.5-5.1) Chloride Level 107 mmol/L (98-107) Carbon Dioxide Level 24 mmol/L (21-32) Anion Gap 8 (6-14) Blood Urea Nitrogen 18 mg/dL (8-26) Creatinine 0.9 mg/dL (0.7-1.3) Estimated GFR (Cockcroft-Gault) 108.5 Glucose Level 120 mg/dL (70-99) Calcium Level 7.0 mg/dL (8.5-10.1) Phosphorus Level 3.0 mg/dL (2.6-4.7) Magnesium Level 1.9 mg/dL (1.8-2.4) O2 Saturation 98 % (92-99) Arterial Blood pH 7.44 (7.35-7.45) Arterial Blood pCO2 at Patient Temp 30 mmHg (35-46) Arterial Blood pO2 at Patient Temp 134 mmHg (75-108) Arterial Blood HCO3 20 mmol/L (21-28) Arterial Blood Base Excess -4 mmol/L (-3-3) FiO2 40/vent Medications Active Scripts Medications Dose Route/Sig Max Daily Dose Days Date Category Remeron (Mirtazapine) 15 Mg Tablet 1 Tab PO QHS 11/01/19 Reported Oxycodone Hcl Immed.release (Oxycodone Hcl) 15 Mg Tablet 15 Mg PO PRN Q6HRS PRN 5 10/31/19 Rx Buspirone Hcl 10 Mg Tablet 1 Tab PO BIDACBL 10/21/19 Reported Alprazolam 0.5 Mg Tablet 1 Tab PO HS 10/16/19 Reported Acetaminophen 500 Mg Tablet 1 Tab PO PRN Q6HRS PRN 15 10/16/19 Reported Ferrous Sulfate 325 Mg Tablet 65 Mg PO BID 10/16/19 Reported Pantoprazole Sodium (Pantoprazole Sodium) 40 Mg Tablet.dr 40 Mg PO DAILYAC 08/15/19 Reported Trazodone Hcl 50 Mg Tablet 1 Tab PO QHS 08/15/19 Reported Gabapentin (Gabapentin) 100 Mg Capsule 100 Mg PO TID 08/15/[address] of abd and pelvis 1. Gas containing fluid collection replacing the pancreas, with an intact of gas extending to the skin surface in the right upper quadrant abdomen. Findings suspicious for an abscess either related to pancreatic necrosis or complication of pancreatectomy. Correlate clinically. 2. Moderate amount of ascites and mesenteric edema with abdominal distention and severe hepatic steatosis. Correlate clinically for any evidence of hypoperfusion injury or ischemia. 3. Foci of gas in the left upper quadrant abdomen are new in the presence of a percutaneous gastrostomy tube. Correlate for any history of recent instrumentation. A contained bowel perforation can yield this appearance. echo reviewed There is moderate concentric left ventricular hypertrophy. The left ventricular systolic function is normal and the ejection fraction is within normal range. The Ejection Fraction is 60-65%. There is normal LV segmental wall motion. The right ventricle is mildly to moderately dilated. Impression . IMPRESSION: 1.Acute Hypoxic respiratory Failure 2/2 cardiac arrest-- now requiring mechanical ventilation , likely anoxic brain injury/ acute ischemic CVA 2.S/P Cardiac arrest, ? Etiology. likely septic shock, pancreatic bed adscess, ? Narcotics contribution, acute CVA 3. Suspect Brain anoxia. Not responsive, off sedation. Seizures post arrest.ct head initially neg for SDH 4..Lower extremity edema secondary to lower extremity deep venous thrombosis with no evidence of pulmonary embolism. Risk factor for deep venous thrombosis is immobilization. s/p IVC filter and AC withheld due to anemia and GI bleed. cold left foot. get arterial dopplers 5. The patient with gallstone pancreatitis in May. He is status post exploratory laparotomy with pancreatic necrosectomy, history of gastrostomy tube placement. septic shock on pressors 6. History of respiratory failure, status post tracheostomy and subsequent decannulation. 7. History of hepatitis B. 8. History of renal failure, on hemodialysis in the past and subsequently renal function with return back to normal. 9. Clostridium difficile colitis. 10. Pancreatic Bed Abscess, GI and Surgery following. 11. CT with LLL mass like density related to fluid collection/ pseudo tumor 12. GI Bleeding 13. seizures Plan . RECOMMENDATIONS: continue current vent support, setting reviewed, ABG reviewed, will make adjustments as needed remains unresponsive off sedation, has + cough, spontaneous breathing, and gag-- repeat CT head c/w ischemic CVA, EEG and follow neurology recommendations . MRI head today. s/p drain for Pancreatic Bed Abscess 0n 11/14 ECHO reviewed and consult to cardiology follow recs ABX per ID follow surgery recs-- S/P J-tube placement with IR on 11/12 off Vasopressors . keep MAP greater than 60 Patient with GI bleed . Hb 6.4. heparin dced. s/p IVC filter 11/13.Monitor HGB, s/p prbc 2 units on 11/13, transfuse as needed for HGb less than 7 --- follow GI recommendations GI PPX: protonix to bid dopplers left leg neg Discussed with RN and RT d/w family in detail. d/w in detail and explained prognosis Total critical care time 30 minutes coordinating care and reviewing diagnostics critically ill TAYA PEREIRA MD Nov 19, 2019 10:35
--- NOTE | 2019-11-19 10:39 | PDOC ---
Date of Service: DATE: 11/19/19 TIME: 10:34 Objective: Objective: No change. Vital Signs: Vital Signs Date Time Temp Pulse Resp B/P (MAP) Pulse Ox O2 Delivery O2 Flow Rate FiO2 11/19/19 08:04 100 Ventilator 11/19/19 08:00 98.0 102 21 107/79 (88) 98.0 Labs: Laboratory Tests Test 11/18/19 16:37 11/19/19 06:00 11/19/19 08:00 Hemoglobin 8.0 g/dL 7.0 g/dL Hematocrit 24.2 % 21.5 % Mean Corpuscular Hemoglobin Concent 33 g/dL 33 g/dL White Blood Count 17.1 x10^3/uL Red Blood Count 2.51 x10^6/uL Mean Corpuscular Volume 86 fL Mean Corpuscular Hemoglobin 28 pg Red Cell Distribution Width 20.1 % Platelet Count 129 x10^3/uL Neutrophils (%) (Auto) 90 % Lymphocytes (%) (Auto) 3 % Monocytes (%) (Auto) 6 % Eosinophils (%) (Auto) 0 % Basophils (%) (Auto) 0 % Neutrophils # (Auto) 15.5 x10^3/uL Lymphocytes # (Auto) 0.5 x10^3/uL Monocytes # (Auto) 1.1 x10^3/uL Eosinophils # (Auto) 0.0 x10^3/uL Basophils # (Auto) 0.0 x10^3/uL Sodium Level 139 mmol/L Potassium Level 3.1 mmol/L Chloride Level 107 mmol/L Carbon Dioxide Level 24 mmol/L Anion Gap 8 Blood Urea Nitrogen 18 mg/dL Creatinine 0.9 mg/dL Estimated GFR (Cockcroft-Gault) 108.5 Glucose Level 120 mg/dL Calcium Level 7.0 mg/dL Phosphorus Level 3.0 mg/dL Magnesium Level 1.9 mg/dL O2 Saturation 98 % Arterial Blood pH 7.44 Arterial Blood pCO2 at Patient Temp 30 mmHg Arterial Blood pO2 at Patient Temp 134 mmHg Arterial Blood HCO3 20 mmol/L Arterial Blood Base Excess -4 mmol/L FiO2 40/vent ORDERED: RODNEY/AERSHOSHANA/BREANNE COMMENTS: PANCREATIC BED ABSCESS FLUID Procedure Result GRAM STAIN Final Final GRAM POSITIVE COCCI:MODERATE SQUAMOUS EPI CELL:RARE PMN (WBCs):FEW Unless otherwise specified, Testing Performed by: [address] [address] For Inquires, the Physician may contact the Microbiology department at [phone] ANAEROBIC-AEROBIC CULTURE Preliminary Preliminary MIXED AEROBIC MARCO on 11/18/19 at 1242 INCLUDING: MANY [ENTEROCOCCUS FAECIUM VRE] FEW [ESCHERICHIA COLI] FEW [KLEBSIELLA OXYTOCA RAOULTELLA] ENTEROCOCCUS FAECIUM VRE ESCHERICHIA COLI KLEBSIELLA OXYTOCA RAOULTELLA Streptomycin Synergy Screen S Gentamicin Synergy Screen S ANTIMICROBIAL SUSCEPTIBILITY Preliminary Comment POS COMBO TYPE 45 ENTEROCOCCUS FAECIUM VRE ANTIBIOTIC RESULT INTERPRETATION AMPICILLIN >8 R DAPTOMYCIN 4 S LINEZOLID <=2 S PENICILLIN 8 S VANCOMYCIN >16 R ANTIMICROBIAL SUSCEPTIBILITY Preliminary (continued) Unless otherwise specified, Testing Performed by: [address] [address] For Inquires, the Physician may contact the Microbiology department at [phone] BLOOD CULTURE Preliminary NO GROWTH AFTER 4 DAYS Imaging: LE Duplex IMPRESSION: No evidence of hemodynamically significant left lower extremity arterial stenosis. EEG IMPRESSION: This electroencephalogram with the patient in an obtunded state isunchanged from the study of 2 days ago, with continued periodic lateralizingep ileptiform discharges over the right hemisphere and a diffuse disturbance ofcerebral activity. PE: GEN: chronically ill LUNGS: vent, clear HEART: RRR ABD: distended NEURO/PSYCH: unresponsive A/P: S/p code, encephalopathy/right infarct Pseudocyst s/p drain Anemia Recent C Diff -- Plans for MRI, continue support. Justicifation of Admission Dx: Justifications for Admission: Justification of Admission Dx: Yes Comminuty Aquired Pneumonia: Med-High Risk Pt Sepsis: Infection PAXTON ALEXANDER Nov 19, 2019 10:38
--- NOTE | 2019-11-19 11:32 | PDOC ---
SURGICAL PROGRESS NOTE DATE: 11/19/19 TIME: 11:31 Subjective Pt intubated, non responsive Vital Signs Vital Signs Date Time Temp Pulse Resp B/P (MAP) Pulse Ox O2 Delivery O2 Flow Rate FiO2 11/19/19 11:03 100 Ventilator 11/19/19 08:00 98.0 102 21 107/79 (88) 98.0 I&O Intake and Output 11/19/19 07:00 Intake Total 1525 ml Output Total 2405 ml Balance -880 ml IV Total 1525 ml Output Urine Total 595 ml Stool Total 1400 ml Gastric Drainage Total 300 ml Drainage Total 20 ml Other 90 ml General: No acute distress Abdomen: Soft, Other (drains in place) Labs Laboratory Tests Test 11/18/19 05:00 11/18/19 07:40 11/18/19 16:37 11/19/19 06:00 White Blood Count 21.2 x10^3/uL (4.0-11.0) 17.1 x10^3/uL (4.0-11.0) Red Blood Count 2.68 x10^6/uL (4.30-5.70) 2.51 x10^6/uL (4.30-5.70) Hemoglobin 7.5 g/dL (13.0-17.5) 8.0 g/dL (13.0-17.5) 7.0 g/dL (13.0-17.5) Hematocrit 22.7 % (39.0-53.0) 24.2 % (39.0-53.0) 21.5 % (39.0-53.0) Mean Corpuscular Volume 85 fL (79-100) 86 fL (79-100) Mean Corpuscular Hemoglobin 28 pg (25-35) 28 pg (25-35) Mean Corpuscular Hemoglobin Concent 33 g/dL (31-37) 33 g/dL (31-37) 33 g/dL (31-37) Red Cell Distribution Width 20.0 % (11.5-14.5) 20.1 % (11.5-14.5) Platelet Count 155 x10^3/uL (140-400) 129 x10^3/uL (140-400) Neutrophils (%) (Auto) 88 % (31-73) 90 % (31-73) Lymphocytes (%) (Auto) 4 % (24-48) 3 % (24-48) Monocytes (%) (Auto) 7 % (0-9) 6 % (0-9) Eosinophils (%) (Auto) 0 % (0-3) 0 % (0-3) Basophils (%) (Auto) 0 % (0-3) 0 % (0-3) Neutrophils # (Auto) 18.7 x10^3/uL (1.8-7.7) 15.5 x10^3/uL (1.8-7.7) Lymphocytes # (Auto) 0.9 x10^3/uL (1.0-4.8) 0.5 x10^3/uL (1.0-4.8) Monocytes # (Auto) 1.5 x10^3/uL (0.0-1.1) 1.1 x10^3/uL (0.0-1.1) Eosinophils # (Auto) 0.0 x10^3/uL (0.0-0.7) 0.0 x10^3/uL (0.0-0.7) Basophils # (Auto) 0.1 x10^3/uL (0.0-0.2) 0.0 x10^3/uL (0.0-0.2) Segmented Neutrophils % 91 % (35-66) Band Neutrophils % 3 % (0-9) Atypical Lymphocytes % (Manual) 2 % (0-0) Monocytes % 4 % (0-10) Platelet Estimate Adequate (ADEQUATE) Large Platelets Present Anisocytosis Slight Sodium Level 138 mmol/L (136-145) 139 mmol/L (136-145) Potassium Level 3.8 mmol/L (3.5-5.1) 3.1 mmol/L (3.5-5.1) Chloride Level 107 mmol/L (98-107) 107 mmol/L (98-107) Carbon Dioxide Level 25 mmol/L (21-32) 24 mmol/L (21-32) Anion Gap 6 (6-14) 8 (6-14) Blood Urea Nitrogen 19 mg/dL (8-26) 18 mg/dL (8-26) Creatinine 0.7 mg/dL (0.7-1.3) 0.9 mg/dL (0.7-1.3) Estimated GFR (Cockcroft-Gault) 145.0 108.5 Glucose Level 129 mg/dL (70-99) 120 mg/dL (70-99) Calcium Level 7.1 mg/dL (8.5-10.1) 7.0 mg/dL (8.5-10.1) O2 Saturation 97 % (92-99) Arterial Blood pH 7.44 (7.35-7.45) Arterial Blood pCO2 at Patient Temp 28 mmHg (35-46) Arterial Blood pO2 at Patient Temp 118 mmHg (75-108) Arterial Blood HCO3 19 mmol/L (21-28) Arterial Blood Base Excess -4 mmol/L (-3-3) FiO2 40 Phosphorus Level 3.0 mg/dL (2.6-4.7) Magnesium Level 1.9 mg/dL (1.8-2.4) Test 11/19/19 08:00 O2 Saturation 98 % (92-99) Arterial Blood pH 7.44 (7.35-7.45) Arterial Blood pCO2 at Patient Temp 30 mmHg (35-46) Arterial Blood pO2 at Patient Temp 134 mmHg (75-108) Arterial Blood HCO3 20 mmol/L (21-28) Arterial Blood Base Excess -4 mmol/L (-3-3) FiO2 40/vent Laboratory Tests Test 11/18/19 16:37 11/19/19 06:00 11/19/19 08:00 Hemoglobin 8.0 g/dL (13.0-17.5) 7.0 g/dL (13.0-17.5) Hematocrit 24.2 % (39.0-53.0) 21.5 % (39.0-53.0) Mean Corpuscular Hemoglobin Concent 33 g/dL (31-37) 33 g/dL (31-37) White Blood Count 17.1 x10^3/uL (4.0-11.0) Red Blood Count 2.51 x10^6/uL (4.30-5.70) Mean Corpuscular Volume 86 fL (79-100) Mean Corpuscular Hemoglobin 28 pg (25-35) Red Cell Distribution Width 20.1 % (11.5-14.5) Platelet Count 129 x10^3/uL (140-400) Neutrophils (%) (Auto) 90 % (31-73) Lymphocytes (%) (Auto) 3 % (24-48) Monocytes (%) (Auto) 6 % (0-9) Eosinophils (%) (Auto) 0 % (0-3) Basophils (%) (Auto) 0 % (0-3) Neutrophils # (Auto) 15.5 x10^3/uL (1.8-7.7) Lymphocytes # (Auto) 0.5 x10^3/uL (1.0-4.8) Monocytes # (Auto) 1.1 x10^3/uL (0.0-1.1) Eosinophils # (Auto) 0.0 x10^3/uL (0.0-0.7) Basophils # (Auto) 0.0 x10^3/uL (0.0-0.2) Sodium Level 139 mmol/L (136-145) Potassium Level 3.1 mmol/L (3.5-5.1) Chloride Level 107 mmol/L (98-107) Carbon Dioxide Level 24 mmol/L (21-32) Anion Gap 8 (6-14) Blood Urea Nitrogen 18 mg/dL (8-26) Creatinine 0.9 mg/dL (0.7-1.3) Estimated GFR (Cockcroft-Gault) 108.5 Glucose Level 120 mg/dL (70-99) Calcium Level 7.0 mg/dL (8.5-10.1) Phosphorus Level 3.0 mg/dL (2.6-4.7) Magnesium Level 1.9 mg/dL (1.8-2.4) O2 Saturation 98 % (92-99) Arterial Blood pH 7.44 (7.35-7.45) Arterial Blood pCO2 at Patient Temp 30 mmHg (35-46) Arterial Blood pO2 at Patient Temp 134 mmHg (75-108) Arterial Blood HCO3 20 mmol/L (21-28) Arterial Blood Base Excess -4 mmol/L (-3-3) FiO2 40/vent Problem List pancreatitis cont supportive care and drains no surgical plans. Justicifation of Admission Dx: Justifications for Admission: Justification of Admission Dx: Yes Comminuty Aquired Pneumonia: Med-High Risk Pt Sepsis: Infection KARLA CALL MD Nov 19, 2019 11:32
[2019-11-19 12:53] LABS: HEMATOCRIT 27.2 % (39.0-53.0); RED BLOOD COUNT 3.14 x10^6/uL (4.30-5.70); RED CELL DISTRIBUTION WIDTH 18.4 % (11.5-14.5); WHITE BLOOD COUNT 16.8 x10^3/uL (4.0-11.0)
--- NOTE | 2019-11-19 13:09 | RAD ---
MRI Brain without contrast History:Right hemispheric stroke Technique: Multiplanar, multisequential noncontrast MR imaging was performed of the brain. Comparison: November 17, [address] Findings: There is large area of diffusion signal abnormality more superiorly of the right frontal parietal lobes with cortical involvement about 7.9 cm AP by 3.1 m transverse with some associated variable T2 and FLAIR hyperintense signal, some variable iso to slightly hypointense signal on the ADC map. There is also area of somewhat amorphous restricted diffusion centered in the right occipital lobe 4.6 cm in size with cortical involvement, mostly hypointense on ADC map. There are also more defined foci restricted diffusion of the right caudate head and a couple of small more defined foci of the right frontal deep white matter. There is also some subtle restricted diffusion signal change of the left frontal parietal lobes extending near the cortical surface with some variable mild decreased signal on the ADC map. There is also small more defined focus of restricted diffusion of the left frontal operculum. There is focus of increased T2 and FLAIR signal of the lateral left temporal lobe with cortical involvement measuring about 2.3 cm, not associated with significant diffusion signal abnormality. There are some small foci of diffusion signal change of the cerebellum greater on the left although on the left mostly iso to slightly hyperintense on ADC map. There is no midline shift. Ventricular size is within normal limits. There is prominent fluid and thickening left mastoid air cells, mild thickening on the right. There is preservation of the major arterial intracranial flow voids at the skull base although small caliber of the basilar artery flow-void. Cerebellar tonsils are normal in location. There is diffuse decreased signal of the marrow of the nonexpanded clivus which may be due to residual red marrow. There is no significant abnormality of pineal gland or pituitary gland. Impression: 1. There is signal change of the supratentorial parenchyma bilaterally, right greater than left and also of the cerebellum greater on the left as stated, could be related to sequela of various ages of subacute infarction. However sequela of encephalitis is difficult to exclude by imaging especially given signal alteration with cortical involvement of the lateral left temporal lobe which is not associated with diffusion signal change, other consideration sequela of seizure/syncope focus. Critical results were discussed with patient's nurse Whit November 19, 2019 at 1305. 2. There is prominent fluid and thickening of the left mastoid air cells, uncertain sterility. Electronically signed by: Charlie Sims MD (11/19/2019 1:06 PM) [id number]
[2019-11-19] MEDS ORDERED: MAGNESIUM SULFATE 2GM 50 ML IV ONE (14:00)
[2019-11-19] MEDS: POTASSIUM CHLORIDE 20MEQ 100 ML IV SCH ×2 (14:25→16:05)
--- NOTE | 2019-11-19 15:13 | NUR ---
SS following up with discharge planning. SS reviewed pt chart and discussed with pt RN. Pt remains on the vent. Pt on TPN and IV Cefepime. Pt had EEG and MRI today. Pt spouse continues to state Full Code/Full aggressive care. Physicians have discussed with pt's spouse. Pt will most likely need trach placement and LTACH. [facility] [place] reporting that pt will need to be 21 days on the vent and 7 days on the trach prior to LTACH being authorized. SS will continue to follow for discharge planning.
--- NOTE | 2019-11-19 17:05 | NUR ---
Wound Care: Patient seen per wound care for follow up for reassessment of skin and drain. There are no open wounds noted at this time. A foam applied to coccyx for protection only. Skin prep applied to elbow on old skin tear. bag drain appears to continue to have a good seal. Bag emptied. Patient repositioned and turned to right side using pillow. Bilateral feet elevated at this time. Bed lowered. Wound care will continue to follow patient.
[2019-11-19] MEDS: ALPRAZolam 0.5 MG TABLET PO SCH (21:00)
[2019-11-19] MEDS ORDERED: DEXTROSE 70% IV SCH (22:00)
[2019-11-19] MEDS ORDERED: AMINO ACID IV SCH (22:00)
[2019-11-19] MEDS ORDERED: [UNRECOGNIZED DRUG - OTHER] IV SCH (22:00)
[2019-11-19] MEDS ORDERED: TOTAL PARENTERAL NUTRITION IV SCH (22:00)
[2019-11-20] VITALS (24 sets, daily range): BP systolic 90–124; BP diastolic 58–90
[2019-11-20] MEDS: VALPROIC ACID (AS SODIUM SALT) 500 MG in IV DEXTROSE 5% 50 ML IV SCH ×3 (06:04→22:01)
[2019-11-20] MEDS: CEFEPIME HCL IV Push 1 GM VIAL. IVP SCH ×3 (06:05→21:40)
[2019-11-20 06:34] LABS: CALCIUM 6.8 mg/dL (8.5-10.1); CREATININE 0.8 mg/dL (0.7-1.3); GFR 124.3; MAGNESIUM 2.3 mg/dL (1.8-2.4); POTASSIUM 3.1 mmol/L (3.5-5.1)
[2019-11-20 07:10] LABS: HEMATOCRIT 26.2 % (39.0-53.0); HEMOGLOBIN 8.8 g/dL (13.0-17.5)
--- NOTE | 2019-11-20 07:49 | PDOC ---
Infectious Disease Note Subjective Subjective intubated on vent, unresponsive, off sedation ROS ROS unable to do Vital Sign Vital Signs Vital Signs Date Time Temp Pulse Resp B/P (MAP) Pulse Ox O2 Delivery O2 Flow Rate FiO2 11/20/19 07:00 95 16 107/75 (86) 98 Ventilator 11/20/19 04:00 97.8 97.8 Physical Exam PHYSICAL EXAM GENERAL: Thin, cachectic male Intubated HEENT: Norm conj. ETT NECK: Supple, no lymphadenopathy. LUNGS: Decreased breath sounds at the bases, increased Resp rate HEART: S1, S2. tachy ABDOMEN: Distended, soft, nontender, fistula in place - bloody drainage, GJ tube in place.,, EC fistula + - [place] with 3 plus edema EXTREMITIES: Edema, no cyanosis.RLE IO - old site clean DERMATOLOGIC: Warm, dry. 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 NEUROLOGIC: unresponsive DERMATOLOGIC: No generalized rash RIJ - clean. Labs Lab Laboratory Tests Test 11/19/19 08:00 11/19/19 12:42 11/19/19 12:50 11/20/19 00:11 O2 Saturation 98 % (92-99) Arterial Blood pH 7.44 (7.35-7.45) Arterial Blood pCO2 at Patient Temp 30 mmHg (35-46) Arterial Blood pO2 at Patient Temp 134 mmHg (75-108) Arterial Blood HCO3 20 mmol/L (21-28) Arterial Blood Base Excess -4 mmol/L (-3-3) FiO2 40/vent White Blood Count 16.8 x10^3/uL (4.0-11.0) Red Blood Count 3.14 x10^6/uL (4.30-5.70) Hemoglobin 9.0 g/dL (13.0-17.5) Hematocrit 27.2 % (39.0-53.0) Mean Corpuscular Volume 87 fL (79-100) Mean Corpuscular Hemoglobin 29 pg (25-35) Mean Corpuscular Hemoglobin Concent 33 g/dL (31-37) Red Cell Distribution Width 18.4 % (11.5-14.5) Platelet Count 127 x10^3/uL (140-400) Potassium Level 3.1 mmol/L (3.5-5.1) Glucose (Fingerstick) 143 mg/dL (70-99) Test 11/20/19 05:45 11/20/19 06:08 Hemoglobin 8.8 g/dL (13.0-17.5) Hematocrit 26.2 % (39.0-53.0) Mean Corpuscular Hemoglobin Concent 34 g/dL (31-37) Sodium Level 139 mmol/L (136-145) Potassium Level 3.1 mmol/L (3.5-5.1) Chloride Level 109 mmol/L (98-107) Carbon Dioxide Level 24 mmol/L (21-32) Anion Gap 6 (6-14) Blood Urea Nitrogen 19 mg/dL (8-26) Creatinine 0.8 mg/dL (0.7-1.3) Estimated GFR (Cockcroft-Gault) 124.3 Glucose Level 230 mg/dL (70-99) Calcium Level 6.8 mg/dL (8.5-10.1) Magnesium Level 2.3 mg/dL (1.8-2.4) Glucose (Fingerstick) 201 mg/dL (70-99) Micro Pancreatic bed drainage MIXED AEROBIC MARCO on 11/18/19 at 1242 INCLUDING: MANY [ENTEROCOCCUS FAECIUM VRE] FEW [ESCHERICHIA COLI] FEW [KLEBSIELLA OXYTOCA RAOULTELLA] FEW [RADHA ALBICANS] ENTEROCOCCUS FAECIUM VRE ESCHERICHIA COLI KLEBSIELLA OXYTOCA RAOULTELLA RADHA ALBICANS Streptomycin Synergy Screen S Gentamicin Synergy Screen S Objective Assessment Fever - better GNR bactermia 11/13 ID FINAL ID= [CITROBACTER FREUNDI] KLEBSIELLA OXYTOCA RAOULTELLA S/p IR abd drain 11/14 Kleb and Citrobacteri in sputum - Leukocytosis - S/p Seizures 11/13 Elevated Troponin S/p IVC (actually in iliac) 11/13 Acute hypoxic resp failure intubated PEA Gj tube replaced 11/12 ? Loculated LL effusion on CT 11/12 Leukocytosis ? reactive 1. Bilateral lower extremity deep venous thrombosis 11/06 2. Clostridium difficile colitis 10/22 3. Leukocytosis with bandemia- better off abx 4. Left basilar pleural effusion and consolidation, chronic. 5. History of severe pancreatitis, status post exploratory laparotomy with pancreatic necrosectomy, cholecystotomy tube placement, gastrostomy tube placement, tracheostomy placement, five drains. Ascitic fluid drained status post tracheostomy recovered, history of hepatitis B during last admission in 07/2019. 6. Severe protein malnutrition Pancreatic bed abscess s/p drainage,,, MIXED AEROBIC MARCO on 11/18/19 at 1242 INCLUDING: MANY [ENTEROCOCCUS FAECIUM VRE] FEW [ESCHERICHIA COLI] FEW [KLEBSIELLA OXYTOCA RAOULTELLA] FEW [RADHA ALBICANS] ENTEROCOCCUS FAECIUM VRE ESCHERICHIA COLI KLEBSIELLA OXYTOCA RAOULTELLA RADHA ALBICANS Streptomycin Synergy Screen S Gentamicin Synergy Screen S Plan Plan of Care cont cefepime and po vanc zyvox and diflucan D/w nursing prog KRISTIAN Monte MD Nov 20, 2019 07:49
--- NOTE | 2019-11-20 07:50 | PDOC ---
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 Sepsis, present on admission - 2/2 c difficile. Acute Hypoxic respiratory Failure 2/2 cardiac arrest-- now requiring mechanical ventilation S/P Cardiac arrest unknown etiology Possible seizures Acute GI bleed, unknown source suspect C. difficile colitis possible ischemic colitis Status post CT-guided abscess drain placement 11/15/2019 Bilateral DVT Neutropenia and bandemia, recent C. diff infection Toxic encephalopathy secondary to medication, currently resolved Diarrhea. Recurrent C. diff? C. diff Diarrhea on last hospital stay, completed a 10 day course of antibiotics. H/o recent Severe pancreatitis s/p ex-lap with pancreatic necrosectomy, cholecystostomy tube placement, gastrostomy tube placement, tracheostomy placement, 5 drains, 1.5L ascites drained - likely gallstone Status post tracheostomy - reversed, recovered Severe protein calorie malnutrition - started G-tube feeds History of Hepatitis B J tube replaced by IR during last hospitalization but tolerating TFs at night well. Hypokalemia Patient is intubated and sedated Full code Discussed with RN and SW Dispo surgery is contraindicated at this time, family requests neuro ICU transfer Surrogate decision maker is Deacon Mata phone: [phone] Total critical care time spent is 45 minutes History of Present Illness History of Present Illness Mr Mata is a 49-year-old with past medical history of GERD pancreatitis history of DVT who came to the emergency department complaining of bilateral leg swelling. Doppler ultrasound revealing bilateral DVTs. Apparently the patient had been on Coumadin before it is unclear at this point if the patient has been taking Coumadin prior to this visit to the emergency department. Patient denies any headaches no blurred vision no strokelike symptoms no chest pain palpitations no shortness of breath has been reported. Patient denies abdominal pain no nausea vomiting or diarrhea. The patient certainly complains of discomfort over his bilateral extremities due to the edema. 11/08: Patient with recent admission to the hospital for C. difficile and still having diarrhea he had a significant bandemia which could be a consequence of ongoing C. difficile infection. 11/11: Ostomy in RUQ and PEG tube in LUQ, In bed, in NAD, eating breakfast PO, Complaining of abdominal pain and insomnia 11/12: Discussed with via phone call 11/13: Patient is sedated and intubated. S/P cardiac arrest with 3 rounds of CPR and EPI/ bicarb, transferred to ICU. 11/14: Patient did have large volume lower GI bleed with about 300 cc. Status post 2 units PRBCs. Patient's chart, labs, images were reviewed and discussed with RN 11/15: Patient seen and examined at bedside. Patient continues to have rectal bleeding with clots. 11/16: Seen and examined. Afebrile. intubated, continues to have bloody stools. On levophed. Not awakening off sedation. CT head concerning for acute CVA. EEG with PLEDs 11/17: Off sedation for 48 hours. Still with gag, not opening eyes. Significant stool output. WBC 20 K, Hb stable > 7. Cr improved. 11/18: Off sedation 72 hours, no active response, gag positive. Significant stool output, WBC 17, Hb 7 from 8.5 yesterday, K3.1. Discussed findings of EEG with neurology MRI: 1. There is signal change of the supratentorial parenchyma bilaterally, right greater than left and also of the cerebellum greater on the left as stated, could be related to sequela of various ages of subacute infarction. However sequela of encephalitis is difficult to exclude by imaging especially given signal alteration with cortical involvement of the lateral left temporal lobe which is not associated with diffusion signal change, other consideration sequela of seizure/syncope focus. 2. There is prominent fluid and thickening of the left mastoid air cells, uncertain sterility. PLEDs on repeat EEG Afebrile. Does not open eyes to painful stimuli, still does have gag with suctioning. Respirations without vent support are more irregular today. K3.1. Hb 8.8. ABG 7.41/33/93. I discussed the findings of the EEG and MRI is consistent with a large frontal parietal CVA likely from the PLEDs secondary to this. I did discuss the less likely possibility of epileptiform activity, though patient has no history of seizures. They have requested second opinion from a facility where neuro critical care is available as we do not have the service at [facility]. Plan: Albumin for hypotension IV potassium replacement Patient family has requested transfer to facility with continuous EEG monitoring and neuro-ICU capability given the MRI and EEG possibility of seizure activity Vitals/I&O Vitals/I&O: Vital Signs Date Time Temp Pulse Resp B/P (MAP) Pulse Ox O2 Delivery O2 Flow Rate FiO2 11/20/19 07:00 95 16 107/75 (86) 98 Ventilator 11/20/19 04:00 97.8 97.8 I & O 11/19/19 11/19/19 11/20/19 15:00 23:00 07:00 Intake Total 687 ml 1470 ml 443 ml Output Total 330 ml 560 ml 735 ml Balance 357 ml 910 ml -292 ml Physical Exam Physical Exam: GENERAL: Thin, cachectic male Intubated HEENT: Norm conj. ETT NECK: Supple, no lymphadenopathy. LUNGS: Decreased breath sounds at the bases, increased Resp rate HEART: S1, S2. tachy ABDOMEN: Distended, soft, nontender, fistula in place - bloody drainage, GJ tube in place.,, EC fistula + - [place] with 3 plus edema EXTREMITIES: Edema, no cyanosis.RLE IO - old site clean DERMATOLOGIC: Warm, dry. 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 NEUROLOGIC: unresponsive DERMATOLOGIC: No generalized rash RIJ - clean. General: No acute distress Heart: Regular rate (sinus tach) Lungs: Other (decreased BLL) Abdomen: Soft, Other (drains in place) Extremities: No cyanosis Skin: No rashes, No significant lesion Labs Labs: Laboratory Tests Test 11/19/19 08:00 11/19/19 12:42 11/19/19 12:50 11/20/19 00:11 O2 Saturation 98 % (92-99) Arterial Blood pH 7.44 (7.35-7.45) Arterial Blood pCO2 at Patient Temp 30 mmHg (35-46) Arterial Blood pO2 at Patient Temp 134 mmHg (75-108) Arterial Blood HCO3 20 mmol/L (21-28) Arterial Blood Base Excess -4 mmol/L (-3-3) FiO2 40/vent White Blood Count 16.8 x10^3/uL (4.0-11.0) Red Blood Count 3.14 x10^6/uL (4.30-5.70) Hemoglobin 9.0 g/dL (13.0-17.5) Hematocrit 27.2 % (39.0-53.0) Mean Corpuscular Volume 87 fL (79-100) Mean Corpuscular Hemoglobin 29 pg (25-35) Mean Corpuscular Hemoglobin Concent 33 g/dL (31-37) Red Cell Distribution Width 18.4 % (11.5-14.5) Platelet Count 127 x10^3/uL (140-400) Potassium Level 3.1 mmol/L (3.5-5.1) Glucose (Fingerstick) 143 mg/dL (70-99) Test 11/20/19 05:45 11/20/19 06:08 Hemoglobin 8.8 g/dL (13.0-17.5) Hematocrit 26.2 % (39.0-53.0) Mean Corpuscular Hemoglobin Concent 34 g/dL (31-37) Sodium Level 139 mmol/L (136-145) Potassium Level 3.1 mmol/L (3.5-5.1) Chloride Level 109 mmol/L (98-107) Carbon Dioxide Level 24 mmol/L (21-32) Anion Gap 6 (6-14) Blood Urea Nitrogen 19 mg/dL (8-26) Creatinine 0.8 mg/dL (0.7-1.3) Estimated GFR (Cockcroft-Gault) 124.3 Glucose Level 230 mg/dL (70-99) Calcium Level 6.8 mg/dL (8.5-10.1) Magnesium Level 2.3 mg/dL (1.8-2.4) Glucose (Fingerstick) 201 mg/dL (70-99) Comment Review of Relevant I have reviewed the following items alexandra (where applicable) has been applied. Medications: Current Medications Medications (Trade) Dose Ordered Sig/Jesse Route PRN Reason Start Time Stop Time Status Last Admin Dose Admin Potassium Chloride/Water 100 ml @ 100 mls/hr 1X ONCE IV 11/19/19 08:00 11/19/19 08:59 DC 11/19/19 08:00 Sodium Chloride 90 meq/Potassium Chloride 50 meq/ Potassium Phosphate 13.6 mmol/Magnesium Sulfate 10 meq/ Calcium Gluconate 10 meq/ Multivitamins 10 ml/Chromium/ Copper/Manganese/ Seleni/Zn 1 ml/ Total Parenteral Nutrition/Amino Acids/Dextrose/ Fat Emulsion Intravenous 1,512 ml @ 63 mls/hr TPN CONT IV 11/19/19 22:00 11/20/19 21:59 11/19/19 22:19 Magnesium Sulfate 50 ml @ 25 mls/hr 1X ONCE IV 11/19/19 14:00 11/19/19 15:59 DC 11/19/19 14:26 Potassium Chloride/Water 100 ml @ 100 mls/hr Q1H IV 11/19/19 14:00 11/19/19 15:59 DC 11/19/19 16:05 Justicifation of Admission Dx: Justifications for Admission: Justification of Admission Dx: Yes Comminuty Aquired Pneumonia: Med-High Risk Pt Sepsis: Infection JUAN ANTONIO OWUSU MD Nov 20, 2019 07:50
[2019-11-20 08:12] LABS: BASE EXCESS ABG -4 mmol/L (-3-3); HCO3 ABG 20 mmol/L (21-28); PCO2 ABG 33 mmHg (35-46); PO2 ABG 93 mmHg (75-108); SAT O2 ABG 97 % (92-99)
[2019-11-20 08:17] LABS: FIO2 ABG 30
[2019-11-20] MEDS: VANCOMYCIN 125 MG/2.5 ML ORAL SOLUTION. PO SCH ×4 (08:50→20:31)
[2019-11-20] MEDS: FLUCONAZOLE 200MG/100ML PREMIX 100 ML IV SCH (08:50)
[2019-11-20] MEDS: PANTOPRAZOLE IV PUSH 40 MG VIAL. IVP SCH ×2 (08:50→20:38)
[2019-11-20] MEDS: FERROUS SULFATE 325 MG TABLET. PO SCH ×2 (08:52→16:45)
[2019-11-20] MEDS ORDERED: ALBUMIN HUMAN 5% 500 ML IV ONE (09:00)
--- NOTE | 2019-11-20 09:40 | PDOC ---
PULMONARY PROGRESS NOTES DATE: 11/20/19 TIME: 09:36 Subjective S/P cardiac arrest with 3 rounds of CPR and EPI/ bicarb 11/13, intubated, off sedation since 72 hrs. does trigger vent but remains non responsive seizures post arrest suspected brain anoxia/ ct head with ischemic cva Vitals Vital Signs Date Time Temp Pulse Resp B/P (MAP) Pulse Ox O2 Delivery O2 Flow Rate FiO2 11/20/19 09:14 100 Ventilator 11/20/19 07:00 95 16 107/75 (86) 11/20/19 04:00 97.8 97.8 Comments unable to obtain intubated HEENT: Other (nc at perrl nose clear orally intubated neck no lad no thyromegaly) Lungs: Other (decreased BLL) Cardiovascular: S1, S2 Abdomen: Other (less distended doft deminished bs) Extremities: Other (2+ edema, less cold left foot) Skin: Warm Labs Laboratory Tests Test 11/18/19 16:37 11/19/19 06:00 11/19/19 08:00 11/19/19 12:42 Hemoglobin 8.0 g/dL (13.0-17.5) 7.0 g/dL (13.0-17.5) 9.0 g/dL (13.0-17.5) Hematocrit 24.2 % (39.0-53.0) 21.5 % (39.0-53.0) 27.2 % (39.0-53.0) Mean Corpuscular Hemoglobin Concent 33 g/dL (31-37) 33 g/dL (31-37) 33 g/dL (31-37) White Blood Count 17.1 x10^3/uL (4.0-11.0) 16.8 x10^3/uL (4.0-11.0) Red Blood Count 2.51 x10^6/uL (4.30-5.70) 3.14 x10^6/uL (4.30-5.70) Mean Corpuscular Volume 86 fL (79-100) 87 fL (79-100) Mean Corpuscular Hemoglobin 28 pg (25-35) 29 pg (25-35) Red Cell Distribution Width 20.1 % (11.5-14.5) 18.4 % (11.5-14.5) Platelet Count 129 x10^3/uL (140-400) 127 x10^3/uL (140-400) Neutrophils (%) (Auto) 90 % (31-73) Lymphocytes (%) (Auto) 3 % (24-48) Monocytes (%) (Auto) 6 % (0-9) Eosinophils (%) (Auto) 0 % (0-3) Basophils (%) (Auto) 0 % (0-3) Neutrophils # (Auto) 15.5 x10^3/uL (1.8-7.7) Lymphocytes # (Auto) 0.5 x10^3/uL (1.0-4.8) Monocytes # (Auto) 1.1 x10^3/uL (0.0-1.1) Eosinophils # (Auto) 0.0 x10^3/uL (0.0-0.7) Basophils # (Auto) 0.0 x10^3/uL (0.0-0.2) Sodium Level 139 mmol/L (136-145) Potassium Level 3.1 mmol/L (3.5-5.1) Chloride Level 107 mmol/L (98-107) Carbon Dioxide Level 24 mmol/L (21-32) Anion Gap 8 (6-14) Blood Urea Nitrogen 18 mg/dL (8-26) Creatinine 0.9 mg/dL (0.7-1.3) Estimated GFR (Cockcroft-Gault) 108.5 Glucose Level 120 mg/dL (70-99) Calcium Level 7.0 mg/dL (8.5-10.1) Phosphorus Level 3.0 mg/dL (2.6-4.7) Magnesium Level 1.9 mg/dL (1.8-2.4) O2 Saturation 98 % (92-99) Arterial Blood pH 7.44 (7.35-7.45) Arterial Blood pCO2 at Patient Temp 30 mmHg (35-46) Arterial Blood pO2 at Patient Temp 134 mmHg (75-108) Arterial Blood HCO3 20 mmol/L (21-28) Arterial Blood Base Excess -4 mmol/L (-3-3) FiO2 40/vent Test 11/19/19 12:50 11/20/19 00:11 11/20/19 05:45 11/20/19 06:08 Potassium Level 3.1 mmol/L (3.5-5.1) 3.1 mmol/L (3.5-5.1) Glucose (Fingerstick) 143 mg/dL (70-99) 201 mg/dL (70-99) Hemoglobin 8.8 g/dL (13.0-17.5) Hematocrit 26.2 % (39.0-53.0) Mean Corpuscular Hemoglobin Concent 34 g/dL (31-37) Sodium Level 139 mmol/L (136-145) Chloride Level 109 mmol/L (98-107) Carbon Dioxide Level 24 mmol/L (21-32) Anion Gap 6 (6-14) Blood Urea Nitrogen 19 mg/dL (8-26) Creatinine 0.8 mg/dL (0.7-1.3) Estimated GFR (Cockcroft-Gault) 124.3 Glucose Level 230 mg/dL (70-99) Calcium Level 6.8 mg/dL (8.5-10.1) Magnesium Level 2.3 mg/dL (1.8-2.4) Test 11/20/19 08:00 O2 Saturation 97 % (92-99) Arterial Blood pH 7.41 (7.35-7.45) Arterial Blood pCO2 at Patient Temp 33 mmHg (35-46) Arterial Blood pO2 at Patient Temp 93 mmHg (75-108) Arterial Blood HCO3 20 mmol/L (21-28) Arterial Blood Base Excess -4 mmol/L (-3-3) FiO2 30 Laboratory Tests Test 11/19/19 12:42 11/19/19 12:50 11/20/19 00:11 11/20/19 05:45 White Blood Count 16.8 x10^3/uL (4.0-11.0) Red Blood Count 3.14 x10^6/uL (4.30-5.70) Hemoglobin 9.0 g/dL (13.0-17.5) 8.8 g/dL (13.0-17.5) Hematocrit 27.2 % (39.0-53.0) 26.2 % (39.0-53.0) Mean Corpuscular Volume 87 fL (79-100) Mean Corpuscular Hemoglobin 29 pg (25-35) Mean Corpuscular Hemoglobin Concent 33 g/dL (31-37) 34 g/dL (31-37) Red Cell Distribution Width 18.4 % (11.5-14.5) Platelet Count 127 x10^3/uL (140-400) Potassium Level 3.1 mmol/L (3.5-5.1) 3.1 mmol/L (3.5-5.1) Glucose (Fingerstick) 143 mg/dL (70-99) Sodium Level 139 mmol/L (136-145) Chloride Level 109 mmol/L (98-107) Carbon Dioxide Level 24 mmol/L (21-32) Anion Gap 6 (6-14) Blood Urea Nitrogen 19 mg/dL (8-26) Creatinine 0.8 mg/dL (0.7-1.3) Estimated GFR (Cockcroft-Gault) 124.3 Glucose Level 230 mg/dL (70-99) Calcium Level 6.8 mg/dL (8.5-10.1) Magnesium Level 2.3 mg/dL (1.8-2.4) Test 11/20/19 06:08 11/20/19 08:00 Glucose (Fingerstick) 201 mg/dL (70-99) O2 Saturation 97 % (92-99) Arterial Blood pH 7.41 (7.35-7.45) Arterial Blood pCO2 at Patient Temp 33 mmHg (35-46) Arterial Blood pO2 at Patient Temp 93 mmHg (75-108) Arterial Blood HCO3 20 mmol/L (21-28) Arterial Blood Base Excess -4 mmol/L (-3-3) FiO2 30 Medications Active Scripts Medications Dose Route/Sig Max Daily Dose Days Date Category Remeron (Mirtazapine) 15 Mg Tablet 1 Tab PO QHS 11/01/19 Reported Oxycodone Hcl Immed.release (Oxycodone Hcl) 15 Mg Tablet 15 Mg PO PRN Q6HRS PRN 5 10/31/19 Rx Buspirone Hcl 10 Mg Tablet 1 Tab PO BIDACBL 10/21/19 Reported Alprazolam 0.5 Mg Tablet 1 Tab PO HS 10/16/19 Reported Acetaminophen 500 Mg Tablet 1 Tab PO PRN Q6HRS PRN 15 10/16/19 Reported Ferrous Sulfate 325 Mg Tablet 65 Mg PO BID 10/16/19 Reported Pantoprazole Sodium (Pantoprazole Sodium) 40 Mg Tablet.dr 40 Mg PO DAILYAC 08/15/19 Reported Trazodone Hcl 50 Mg Tablet 1 Tab PO QHS 08/15/19 Reported Gabapentin (Gabapentin) 100 Mg Capsule 100 Mg PO TID 08/15/[address] of abd and pelvis 1. Gas containing fluid collection replacing the pancreas, with an intact of gas extending to the skin surface in the right upper quadrant abdomen. Findings suspicious for an abscess either related to pancreatic necrosis or complication of pancreatectomy. Correlate clinically. 2. Moderate amount of ascites and mesenteric edema with abdominal distention and severe hepatic steatosis. Correlate clinically for any evidence of hypoperfusion injury or ischemia. 3. Foci of gas in the left upper quadrant abdomen are new in the presence of a percutaneous gastrostomy tube. Correlate for any history of recent instrumentation. A contained bowel perforation can yield this appearance. echo reviewed There is moderate concentric left ventricular hypertrophy. The left ventricular systolic function is normal and the ejection fraction is within normal range. The Ejection Fraction is 60-65%. There is normal LV segmental wall motion. The right ventricle is mildly to moderately dilated. MRI 11/19/2019 Impression: 1. There is signal change of the supratentorial parenchyma bilaterally, right greater than left and also of the cerebellum greater on the left as stated, could be related to sequela of various ages of subacute infarction. However sequela of encephalitis is difficult to exclude by imaging especially given signal alteration with cortical involvement of the lateral left temporal lobe which is not associated with diffusion signal change, other consideration sequela of seizure/syncope focus. Critical results were discussed with patient's nurse Whit November 19, 2019 at 1305. 2. There is prominent fluid and thickening of the left mastoid air cells, uncertain sterility. Impression . IMPRESSION: 1.Acute Hypoxic respiratory Failure 2/2 cardiac arrest-- now requiring mechanical ventilation , likely anoxic brain injury/ acute ischemic CVA 2.S/P Cardiac arrest, ? Etiology. likely septic shock, pancreatic bed adscess, ? Narcotics contribution, acute CVA 3. Suspect Brain anoxia. Not responsive, off sedation. Seizures post arrest.ct head initially neg for SDH 4..Lower extremity edema secondary to lower extremity deep venous thrombosis with no evidence of pulmonary embolism. Risk factor for deep venous thrombosis is immobilization. s/p IVC filter and AC withheld due to anemia and GI bleed. cold left foot. get arterial dopplers 5. The patient with gallstone pancreatitis in May. He is status post exploratory laparotomy with pancreatic necrosectomy, history of gastrostomy tube placement. septic shock on pressors 6. History of respiratory failure, status post tracheostomy and subsequent decannulation. 7. History of hepatitis B. 8. History of renal failure, on hemodialysis in the past and subsequently renal function with return back to normal. 9. Clostridium difficile colitis. 10. Pancreatic Bed Abscess, GI and Surgery following. 11. CT with LLL mass like density related to fluid collection/ pseudo tumor 12. GI Bleeding 13. seizures Plan . RECOMMENDATIONS: continue current vent support, setting reviewed, ABG reviewed, will make adjustments as needed VENT 30%/ PEEP 5, CXR reviewed minimal infiltrates ET in satisfactory position remains unresponsive off sedation, has + cough, spontaneous breathing, and gag-- repeat CT head c/w ischemic CVA, EEG and follow neurology recommendations . MRI CVA vs.encephalitis, plan to transfer to [facility] for continuous EEG s/p drain for Pancreatic Bed Abscess on 11/14 ECHO reviewed and consult to cardiology follow recs ABX per ID follow surgery recs-- S/P J-tube placement with IR on 11/12 Patient with GI bleed . Hb 6.4. heparin dced. s/p IVC filter 11/13.Monitor HGB, s/p prbc 2 units on 11/13, transfuse as needed for HGb less than 7 --- follow GI recommendations GI PPX: protonix to bid dopplers left leg neg Discussed with RN and RT d/w family in detail. Total critical care time 30 minutes coordinating care and reviewing diagnostics critically ill TAYA PEREIRA MD Nov 20, 2019 09:40
--- NOTE | 2019-11-20 09:45 | NUR ---
SS following up with discharge planning. SS reviewed pt chart and discussed with pt RN. Pt remains on the vent at this time. Pt on IV Cefepime, IV Zyvox, and Diflucan. COVID19 negative. Pt's family requesting transfer to [facility] on the [place], ; fax [phone]. They reported second option is [facility] if [facility] declined. SS discussed with Dr. Gibbs. SS contacted [facility] transfer team and spoke with Reba. SS faxed face sheet and copies of insurance cards as requested. Reba reported that she would contact Dr. Gibbs and would notify SS once this was complete. SS will continue to follow for discharge planning.
[2019-11-20] MEDS: levETIRAcetam 1,000 MG in IV DEXTROSE 5% 100ML 100 ML IV SCH ×2 (09:54→21:39)
--- NOTE | 2019-11-20 10:12 | RAD ---
PORTABLE CHEST 1V History: Reason: on vent verify tube placement 107 / Spl. Instructions: / History: Comparison: November 14, 2019 Findings: Stable endotracheal tube and right IJ central line. Enteric tube looped within the proximal stomach. Low lung volumes. Small bilateral pleural effusions. Patchy right basilar opacity. Left basilar consolidation, unchanged. Unchanged heart size. Pigtail pleural catheter projecting over the left upper abdomen. Additional catheter projecting over the left upper abdomen, unchanged. Impression: 1. Low lung volumes with bibasilar opacities, unchanged. 2. Small bilateral pleural effusions, unchanged. Electronically signed by: Khurram Faust DO (11/20/2019 10:08 AM) [id number]
[2019-11-20] MEDS: POTASSIUM CHLORIDE 20MEQ 100 ML IV SCH ×2 (10:30→11:26)
--- NOTE | 2019-11-20 12:01 | NUR ---
SS following up with discharge planning. [facility] contacted SS and declined transfer due to EEG specialist not being available today or tomorrow. Physician notified. Request for transfer to initiated. SS contacted transfer team, ; fax [phone], and made request for transfer. SS faxed clinical as requested. Radiology, [id number], clouding images to . SS will await acceptance decision and will proceed accordingly.
[2019-11-20] MEDS: TPN PER PHARMACY MC PRN ×2 (12:16→12:20)
--- NOTE | 2019-11-20 12:21 | NUR ---
Pharmacy TPN Dosing Note S: CHRISTOPHER NEWSOME is a 49 year old M Currently receiving Central Continuous TPN started 11/19/19 B:Pertinent PMH: NPO, GI bleed Height: 5 feet, 9 inches Weight: 77.6 kg Current diet: NPO LABS: Sodium: 139 Potassium: 3.1 Chloride: 109 Calcium: 6.8 Corrected Calcium: 9.36 Magnesium: 2.3 CO2: 24 SCr: 0.8 Glucose: 143-230 Albumin: 0.8 AST: 57 ALT: 46 TPN FORMULA: TPN TYPE: Central Continuous AMINO ACIDS: 90 gm DEXTROSE: 225 gm LIPIDS: 20 gm SODIUM CHLORIDE: 90 mEq POTASSIUM CHLORIDE: 50 mEq POTASSIUM ACETATE: 40 mEq POTASSIUM PHOSPHATE: 13.6 mmol MAGNESIUM: 10 mEq CALCIUM: 10 mEq MULTIPLE VITAMIN: 10 ml TRACE ELEMENTS: 1 ml(s) TPN PLAN: Potassium acetate 40mEq to be added to bag per labs. R: Change TPN per plan and ordered formula Will monitor electrolytes, glucose, and tolerance to TPN. Azul Rodriges RPH, 11/20/19 [id number]
--- NOTE | 2019-11-20 12:28 | PDOC ---
Date of Service: DATE: 11/20/19 TIME: 12:21 Objective: Objective: D/w nurse - possible transfer to [facility] for continuous EEG. Asks about starting tube feeds. Getting vanco through J tube, ongoing diarrhea (has rectal tube), some bilious OG output. Vital Signs: Vital Signs Date Time Temp Pulse Resp B/P (MAP) Pulse Ox O2 Delivery O2 Flow Rate FiO2 11/20/19 12:00 98.3 90 16 100/61 (74) 100 Ventilator 98.3 Labs: Laboratory Tests Test 11/19/19 12:42 11/19/19 12:50 11/20/19 00:11 11/20/19 05:45 White Blood Count 16.8 x10^3/uL Red Blood Count 3.14 x10^6/uL Hemoglobin 9.0 g/dL 8.8 g/dL Hematocrit 27.2 % 26.2 % Mean Corpuscular Volume 87 fL Mean Corpuscular Hemoglobin 29 pg Mean Corpuscular Hemoglobin Concent 33 g/dL 34 g/dL Red Cell Distribution Width 18.4 % Platelet Count 127 x10^3/uL Potassium Level 3.1 mmol/L 3.1 mmol/L Glucose (Fingerstick) 143 mg/dL Sodium Level 139 mmol/L Chloride Level 109 mmol/L Carbon Dioxide Level 24 mmol/L Anion Gap 6 Blood Urea Nitrogen 19 mg/dL Creatinine 0.8 mg/dL Estimated GFR (Cockcroft-Gault) 124.3 Glucose Level 230 mg/dL Calcium Level 6.8 mg/dL Magnesium Level 2.3 mg/dL Test 11/20/19 06:08 11/20/19 08:00 Glucose (Fingerstick) 201 mg/dL O2 Saturation 97 % Arterial Blood pH 7.41 Arterial Blood pCO2 at Patient Temp 33 mmHg Arterial Blood pO2 at Patient Temp 93 mmHg Arterial Blood HCO3 20 mmol/L Arterial Blood Base Excess -4 mmol/L FiO2 30 BLOOD CULTURE Final NO GROWTH AFTER 5 DAYS Imaging: Brain MRI Impression: 1. There is signal change of the supratentorial parenchyma bilaterally, right greater than left and also of the cerebellum greater on the left as stated, could be related to sequela of various ages of subacute infarction. However sequela of encephalitis is difficult to exclude by imaging especially given signal alteration with cortical involvement of the lateral left temporal lobe which is not associated with diffusion signal change, other consideration sequela of seizure/syncope focus. Critical results were discussed with patient's nurse Whit November 19, 2019 at 1305. 2. There is prominent fluid and thickening of the left mastoid air cells, uncertain sterility. CXR Impression: 1. Low lung volumes with bibasilar opacities, unchanged. 2. Small bilateral pleural effusions, unchanged. PE: GEN: intubated LUNGS: vent, clear ABD: distended NEURO/PSYCH: unresponsive A/P: S/p code, anoxia/CVA, resp failure Pseudocyst s/p drain, anemia, C Diff -- Will follow. Justicifation of Admission Dx: Justifications for Admission: Justification of Admission Dx: Yes Comminuty Aquired Pneumonia: Med-High Risk Pt Sepsis: Infection PAXTON ALEXANDER Nov 20, 2019 12:27
[2019-11-20] MEDS ORDERED: DEXTROSE 50% 25 GM / 50ML DISP.SYRIN. IV PRN (13:00)
--- NOTE | 2019-11-20 13:28 | NUR ---
[facility] following up with discharge planning. [facility] contacted [facility] and reported that they were at capacity. Physician and pt's RN notified.
--- NOTE | 2019-11-20 13:32 | PDOC ---
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 Has been off sedation for 4 days Pancreatitis, respiratory failure, gastrointestinal hemorrhage while on anticoagulation. Poor prognosis Plan Further more aggressive anti-seizure treatments unlikely to affect overall outcome, but is interested in transferring him for continuous EEG monitoring, [facility] and [facility] have refused transfer Subjective none Objective Vital Signs Date Time Temp Pulse Resp B/P (MAP) Pulse Ox O2 Delivery O2 Flow Rate FiO2 11/20/19 13:00 98 18 99/59 (72) 99 Ventilator 11/20/19 12:00 98.3 98.3 Intake and Output 11/20/19 07:00 Intake Total 2600 ml Output Total 1625 ml Balance 975 ml IV Total 2178 ml Blood Product 322 ml Blood Product IV Normal Saline Flush 100 ml Output Urine Total 885 ml Stool Total 500 ml Gastric Drainage Total 150 ml Drainage Total 30 ml Other 60 ml PHYSICAL EXAM Off sedation, intubated PERRL. EOMI, positive oculocephalic reflex. CN: no focal findings. Muscle tone: normal. Muscle strength: no movement to pain DTR: 1+ Plantar reflex: silent Gait: not examined in bed. Sensory exam: not cooperative. Cerebellar: not cooperative Review of Relevant I have reviewed the following items alexandra (where applicable) has been applied. Labs Laboratory Tests Test 11/18/19 16:37 11/19/19 06:00 11/19/19 08:00 11/19/19 12:42 Hemoglobin 8.0 g/dL (13.0-17.5) 7.0 g/dL (13.0-17.5) 9.0 g/dL (13.0-17.5) Hematocrit 24.2 % (39.0-53.0) 21.5 % (39.0-53.0) 27.2 % (39.0-53.0) Mean Corpuscular Hemoglobin Concent 33 g/dL (31-37) 33 g/dL (31-37) 33 g/dL (31-37) White Blood Count 17.1 x10^3/uL (4.0-11.0) 16.8 x10^3/uL (4.0-11.0) Red Blood Count 2.51 x10^6/uL (4.30-5.70) 3.14 x10^6/uL (4.30-5.70) Mean Corpuscular Volume 86 fL (79-100) 87 fL (79-100) Mean Corpuscular Hemoglobin 28 pg (25-35) 29 pg (25-35) Red Cell Distribution Width 20.1 % (11.5-14.5) 18.4 % (11.5-14.5) Platelet Count 129 x10^3/uL (140-400) 127 x10^3/uL (140-400) Neutrophils (%) (Auto) 90 % (31-73) Lymphocytes (%) (Auto) 3 % (24-48) Monocytes (%) (Auto) 6 % (0-9) Eosinophils (%) (Auto) 0 % (0-3) Basophils (%) (Auto) 0 % (0-3) Neutrophils # (Auto) 15.5 x10^3/uL (1.8-7.7) Lymphocytes # (Auto) 0.5 x10^3/uL (1.0-4.8) Monocytes # (Auto) 1.1 x10^3/uL (0.0-1.1) Eosinophils # (Auto) 0.0 x10^3/uL (0.0-0.7) Basophils # (Auto) 0.0 x10^3/uL (0.0-0.2) Sodium Level 139 mmol/L (136-145) Potassium Level 3.1 mmol/L (3.5-5.1) Chloride Level 107 mmol/L (98-107) Carbon Dioxide Level 24 mmol/L (21-32) Anion Gap 8 (6-14) Blood Urea Nitrogen 18 mg/dL (8-26) Creatinine 0.9 mg/dL (0.7-1.3) Estimated GFR (Cockcroft-Gault) 108.5 Glucose Level 120 mg/dL (70-99) Calcium Level 7.0 mg/dL (8.5-10.1) Phosphorus Level 3.0 mg/dL (2.6-4.7) Magnesium Level 1.9 mg/dL (1.8-2.4) O2 Saturation 98 % (92-99) Arterial Blood pH 7.44 (7.35-7.45) Arterial Blood pCO2 at Patient Temp 30 mmHg (35-46) Arterial Blood pO2 at Patient Temp 134 mmHg (75-108) Arterial Blood HCO3 20 mmol/L (21-28) Arterial Blood Base Excess -4 mmol/L (-3-3) FiO2 40/vent Test 11/19/19 12:50 11/20/19 00:11 11/20/19 05:45 11/20/19 06:08 Potassium Level 3.1 mmol/L (3.5-5.1) 3.1 mmol/L (3.5-5.1) Glucose (Fingerstick) 143 mg/dL (70-99) 201 mg/dL (70-99) Hemoglobin 8.8 g/dL (13.0-17.5) Hematocrit 26.2 % (39.0-53.0) Mean Corpuscular Hemoglobin Concent 34 g/dL (31-37) Sodium Level 139 mmol/L (136-145) Chloride Level 109 mmol/L (98-107) Carbon Dioxide Level 24 mmol/L (21-32) Anion Gap 6 (6-14) Blood Urea Nitrogen 19 mg/dL (8-26) Creatinine 0.8 mg/dL (0.7-1.3) Estimated GFR (Cockcroft-Gault) 124.3 Glucose Level 230 mg/dL (70-99) Calcium Level 6.8 mg/dL (8.5-10.1) Magnesium Level 2.3 mg/dL (1.8-2.4) Test 11/20/19 08:00 11/20/19 12:55 O2 Saturation 97 % (92-99) Arterial Blood pH 7.41 (7.35-7.45) Arterial Blood pCO2 at Patient Temp 33 mmHg (35-46) Arterial Blood pO2 at Patient Temp 93 mmHg (75-108) Arterial Blood HCO3 20 mmol/L (21-28) Arterial Blood Base Excess -4 mmol/L (-3-3) FiO2 30 Glucose (Fingerstick) 304 mg/dL (70-99) Laboratory Tests Test 11/20/19 00:11 11/20/19 05:45 11/20/19 06:08 11/20/19 08:00 Glucose (Fingerstick) 143 mg/dL (70-99) 201 mg/dL (70-99) Hemoglobin 8.8 g/dL (13.0-17.5) Hematocrit 26.2 % (39.0-53.0) Mean Corpuscular Hemoglobin Concent 34 g/dL (31-37) Sodium Level 139 mmol/L (136-145) Potassium Level 3.1 mmol/L (3.5-5.1) Chloride Level 109 mmol/L (98-107) Carbon Dioxide Level 24 mmol/L (21-32) Anion Gap 6 (6-14) Blood Urea Nitrogen 19 mg/dL (8-26) Creatinine 0.8 mg/dL (0.7-1.3) Estimated GFR (Cockcroft-Gault) 124.3 Glucose Level 230 mg/dL (70-99) Calcium Level 6.8 mg/dL (8.5-10.1) Magnesium Level 2.3 mg/dL (1.8-2.4) O2 Saturation 97 % (92-99) Arterial Blood pH 7.41 (7.35-7.45) Arterial Blood pCO2 at Patient Temp 33 mmHg (35-46) Arterial Blood pO2 at Patient Temp 93 mmHg (75-108) Arterial Blood HCO3 20 mmol/L (21-28) Arterial Blood Base Excess -4 mmol/L (-3-3) FiO2 30 Test 11/20/19 12:55 Glucose (Fingerstick) 304 mg/dL (70-99) Microbiology 11/15/19 Gram Stain - Final, Resulted 11/15/19 Aerobic and Anaerobic Culture - Preliminary, Resulted 11/15/19 Antimicrobic Susceptibility - Preliminary, Resulted 11/14/19 Blood Culture - Final, Complete NO GROWTH AFTER 5 DAYS 11/14/19 Gram Stain Evaluation - Final, Complete 11/14/19 Respiratory Culture - Final, Complete 11/14/19 Antimicrobic Susceptibility - Final, Complete 11/07/19 Urine Culture - Final, Complete Medications Current Medications Ceftriaxone Sodium (Rocephin) 1 gm 1X ONCE IVP ; Start 11/08/19 at 00:00; Stop 11/08/19 at 01:23; Status DC Enoxaparin Sodium (Lovenox 80mg Syringe) 80 mg 1X ONCE SQ Last administered on 11/08/19at 02:43; Start 11/08/19 at 00:00; Stop 11/08/19 at 00:01; Status DC Ceftriaxone Sodium (Rocephin Im) 1 gm 1X ONCE IM Last administered on 11/08/19 02:42; Start 11/08/19 at 01:45; Stop 11/08/19 at 01:46; Status DC Lorazepam (Ativan) 0.5 mg 1X ONCE PO Last administered on 11/08/19at 03:28; Start 11/08/19 at 03:15; Stop 11/08/19 at 03:16; Status DC Acetaminophen (Tylenol) 500 mg PRN Q6HRS PRN PO FEVER Last administered on 11/12/19at 04:36; Start 11/08/19 at 07:30 Alprazolam (Xanax) 0.5 mg HS PO Last administered on 11/11/19at 20:38; Start 11/08/19 at 21:00 Buspirone HCl (Buspar) 10 mg BIDACBL PO Last administered on 11/08/19at 10:54; Start 11/08/19 at 07:30; Stop 11/08/19 at 11:46; Status DC Ferrous Sulfate (Feosol) 325 mg BIDWMEALS PO Last administered on 11/20/19at 08:52; Start 11/08/19 at 08:00 Gabapentin (Neurontin) 100 mg TID PO Last administered on 11/08/19at 10:54; Start 11/08/19 at 09:00; Stop 11/08/19 at 11:46; Status DC Mirtazapine (Remeron) 15 mg QHS PO ; Start 11/08/19 at 21:00; Stop 11/08/19 at 17:19; Status DC Pantoprazole Sodium (Protonix) 40 mg DAILYAC PO Last administered on 11/15/19at 08:59; Start 11/08/19 at 08:00; Stop 11/15/19 at 12:56; Status DC Trazodone HCl (Desyrel) 50 mg QHS PO ; Start 11/08/19 at 21:00; Stop 11/08/19 at 17:19; Status DC Oxycodone HCl (Roxicodone) 15 mg PRN Q6HRS PRN PO MODEARTE - SEVERE PAIN Last administered on 11/13/19at 11:01; Start 11/08/19 at 07:45 Apixaban (Eliquis) 10 mg BID PO Last administered on 7/30/20at 21:32; Start 11/08/19 at 09:00; Stop 11/14/19 at 10:08; Status DC Apixaban (Eliquis) 5 mg BID PO ; Start 11/15/19 at 09:00; Stop 11/14/19 at 10:08; Status DC Info (Anti-Coagulation Monitoring By Pharmacy) 1 each PRN DAILY PRN MC SEE COMM ENTS Last administered on 11/13/19at 15:20; Start 11/08/19 at 07:45 Vancomycin HCl (Vancomycin Oral Solution) 125 mg [id number] PO Last administered on 11/08/19at 20:48; Start 11/08/19 at 17:30; Stop 11/09/19 at 09:55; Status DC Vancomycin HCl (Vancomycin Oral Solution) 250 mg [id number] PO Last administered on 11/11/19at 20:38; Start 11/09/19 at 13:00; Stop 11/12/19 at 09:03; Status DC Lactobacillus Rhamnosus (Culturelle) 1 cap BID PO Last administered on 11/19/19at 09:52; Start 11/09/19 at 21:00; Stop 11/19/19 at 10:08; Status DC Piperacillin Sod/ Tazobactam Sod 3.375 gm/Sodium Chloride 50 ml @ 100 mls/hr Q6HRS IV Last administered on 11/10/19at 05:58; Start 11/09/19 at 18:00; Stop 11/10/19 at 11:45; Status DC Temazepam (Restoril) 15 mg PRN QHS PRN PO INSOMNIA Last administered on 11/12/19at 23:15; Start 11/12/19 at 09:00 Vancomycin HCl (Vancomycin Oral Solution) 125 mg [id number] PO Last administered on 11/20/19at 08:50; Start 11/12/19 at 10:00 Iohexol (Omnipaque 350 Mg/ml) 100 ml 1X ONCE IV Last administered on 11/13/19at 08:15; Start 11/13/19 at 08:15; Stop 11/13/19 at 08:22; Status DC Info (CONTRAST GIVEN -- Rx MONITORING) 1 each PRN DAILY PRN MC SEE COMMENTS; Start 11/13/19 at 08:30; Stop 11/13/19 at 09:04; Status DC Fentanyl Citrate (Fentanyl 2ml Vial) 100 mcg STK-MED ONCE .ROUTE ; Start 11/13/19 at 08:43; Stop 11/13/19 at 08:43; Status DC Iohexol (Omnipaque 240 Mg/ml) 50 ml STK-MED ONCE .ROUTE ; Start 11/13/19 at 08:45; Stop 11/13/19 at 08:46; Status DC Fentanyl Citrate (Fentanyl 2ml Vial) 50 mcg 1X ONCE IV Last administered on 11/13/19at 09:37; Start 11/13/19 at 09:00; Stop 11/13/19 at 09:03; Status DC Iohexol (Omnipaque 240 Mg/ml) 50 ml 1X ONCE PO Last administered on 11/13/19at 09:37; Start 11/13/19 at 09:00; Stop 11/13/19 at 09:03; Status DC Info (CONTRAST GIVEN -- Rx MONITORING) 1 each PRN DAILY PRN MC SEE COMMENTS; Start 11/13/19 at 09:15; Stop 11/15/19 at 09:14; Status DC Morphine Sulfate (Morphine Sulfate) 2 mg PRN Q2HR PRN IV PAIN Last administered on 11/13/19at 11:34; Start 11/13/19 at 11:30; Stop 11/13/19 at 13:53; Status DC Morphine Sulfate (Morphine Sulfate) 4 mg PRN Q2HR PRN IVP MODERATE TO SEVERE PAIN Last administered on 11/14/19at 08:16; Start 11/13/19 at 14:00 Ondansetron HCl (Zofran) 4 mg PRN Q6HRS PRN IVP NAUSEA/VOMITING Last admi nistered on 11/14/19at 00:13; Start 11/13/19 at 19:30 Dextrose (Dextrose 50%-Water Syringe) 25 gm STK-MED ONCE IV ; Start 11/14/19 at 07:28; Stop 11/14/19 at 07:28; Status DC Epinephrine HCl 5 mg/Sodium Chloride 255 ml @ 23.47 mls/ hr 1X ONCE IV ; Start 11/14/19 at 08:00; Stop 11/14/19 at 18:51; Status DC Fentanyl Citrate 30 ml @ 0 mls/hr CONT PRN IV SEE PROTOCOL Last administered on 11/16/19at 12:15; Start 11/14/19 at 08:15 Propofol 100 ml @ 0 mls/hr CONT PRN IV SEE PROTOCOL; Start 11/14/19 at 08:15 Midazolam HCl 100 ml @ 0 mls/hr CONT PRN IV SEE PROTOCOL Last administered on 11/15/19at 08:36; Start 11/14/19 at 08:15 Meropenem 500 mg/ Sodium Chloride 50 ml @ 100 mls/hr Q6HRS IV Last administered on 11/15/19at 05:29; Start 11/14/19 at 12:00; Stop 11/15/19 at 06:10; Status DC Vancomycin HCl (Vanco Per Pharmacy) 1 each PRN DAILY PRN MC SEE COMMENTS Last administered on 11/17/19at 09:32; Start 11/14/19 at 09:00; Stop 11/18/19 at 08:42; Status DC Metronidazole 100 ml @ 100 mls/hr Q8HRS IV Last administered on 11/18/19at 05:34; Start 11/14/19 at 12:00; Stop 11/18/19 at 08:38; Status DC Micafungin Sodium 100 mg/Dextrose 100 ml @ 100 mls/hr Q24H IV Last administered on 11/18/19at 08:21; Start 11/14/19 at 09:00; Stop 11/18/19 at 08:38; Status DC Metronidazole 100 ml @ 100 mls/hr Q8HRS IV ; Start 11/14/19 at 09:05; Stop 11/14/19 at 13:38; Status DC Vancomycin HCl 2 gm/Sodium Chloride 500 ml @ 250 mls/hr 1X ONCE IV Last administered on 11/14/19at 12:04; Start 11/14/19 at 10:00; Stop 11/14/19 at 11:59; Status DC Norepinephrine Bitartrate 8 mg/ Dextrose 258 ml @ 14.841 mls/ hr CONT PRN IV PER PROTOCOL Last administered on 11/16/19at 21:56; Start 11/14/19 at 09:30 Heparin Sodium/ Dextrose 250 ml @ 9.2 mls/hr CONT PRN IV PER PROTOCOL; Start 11/14/19 at 10:00; Stop 11/14/19 at 16:18; Status DC Heparin Sodium (Porcine) (Heparin Sodium) 1,900 unit PRN Q6HRS PRN IV FOR UFH LEVEL LESS THAN 0.2; Start 11/14/19 at 10:00; Stop 11/14/19 at 16:18; Status DC Heparin Sodium (Porcine) (Heparin Sodium) 4,000 unit 1X ONCE IV ; Start 11/14/19 at 10:00; Stop 11/14/19 at 16:18; Status DC Aspirin (Woodrow Aspirin) 325 mg 1X ONCE JT ; Start 11/14/19 at 10:30; Stop 11/14/19 at 16:18; Status DC Sodium Chloride 1,000 ml @ 500 mls/hr Q2H IV Last administered on 11/14/19at 13:31; Start 11/14/19 at 11:30; Stop 11/14/19 at 15:29; Status DC Lidocaine HCl (Buffered Lidocaine 1%) 3 ml STK-MED ONCE .ROUTE ; Start 11/14/19 at 15:06; Stop 11/14/19 at 15:07; Status DC Iohexol (Omnipaque 240 Mg/ml) 50 ml STK-MED ONCE .ROUTE ; Start 11/14/19 at 15: 06; Stop 11/14/19 at 15:07; Status DC Lidocaine HCl (Buffered Lidocaine 1%) 6 ml 1X ONCE INJ Last administered on 11/14/19at 16:51; Start 11/14/19 at 16:15; Stop 11/14/19 at 16:16; Status DC Iohexol (Omnipaque 240 Mg/ml) 50 ml 1X ONCE IJ Last administered on 11/14/19at 16:52; Start 11/14/19 at 16:15; Stop 11/14/19 at 16:16; Status DC Iohexol (Omnipaque 240 Mg/ml) 50 ml STK-MED ONCE .ROUTE ; Start 11/14/19 at 16:09; Stop 11/14/19 at 16:09; Status DC Levetiracetam 1000 mg/Dextrose 110 ml @ 440 mls/hr 1X ONCE IV Last administered on 11/14/19at 17:09; Start 11/14/19 at 16:15; Stop 11/14/19 at 16:29; Status DC Levetiracetam 500 mg/Dextrose 105 ml @ 420 mls/hr Q12HR IV Last administered on 11/14/19at 20:55; Start 11/14/19 at 21:00; Stop 11/14/19 at 21:56; Status DC Iohexol (Omnipaque 240 Mg/ml) 50 ml STK-MED ONCE .ROUTE ; Start 11/14/19 at 16:14; Stop 11/14/19 at 16:15; Status DC Vancomycin HCl 1.25 gm/Sodium Chloride 250 ml @ 167 mls/hr Q12H IV Last administered on 11/17/19at 23:39; Start 11/15/19 at 00:01; Stop 11/18/19 at 08:38; Status DC Vancomycin HCl (Vancomycin Trough Level) 1 each 1X ONCE MC Last administered on 11/15/19at 23:30; Start 11/15/19 at 23:30; Stop 11/15/19 at 23:31; Status DC Heparin Sodium/ Sodium Chloride 500 ml @ As Directed STK-MED ONCE .ROUTE ; Start 11/14/19 at 16:41; Stop 11/14/19 at 16:41; Status DC Heparin Sodium/ Sodium Chloride (HEPARIN for ARTERIAL LINE FLUSH) 1,000 unit 1X ONCE IV Last administered on 11/14/19at 16:54; Start 11/14/19 at 17:00; Stop 11/14/19 at 17:01; Status DC Levetiracetam 500 mg/Dextrose 105 ml @ 420 mls/hr 1X ONCE IV Last administered on 11/14/19at 22:02; Start 11/14/19 at 22:30; Stop 11/14/19 at 22:44; Status DC Levetiracetam 1000 mg/Dextrose 110 ml @ 440 mls/hr Q12HR IV Last administered on 11/20/19at 09:54; Start 11/15/19 at 09:00 Valproic Acid 1000 mg/Dextrose 60 ml @ 55 mls/hr 1X ONCE IV Last administered on 11/14/19at 23:01; Start 11/14/19 at 23:00; Stop 11/15/19 at 00:05; Status DC Valproic Acid 500 mg/Dextrose 55 ml @ 55 mls/hr Q8HRS IV Last administered on 11/20/19at 06:04; Start 11/15/19 at 06:00 Acetaminophen (Tylenol) 650 mg PRN Q6HRS PRN PEG MILD PAIN/TEMP > 100.3'F Last administered on 11/15/19at 04:33; Start 11/15/19 at 04:15 Cefepime HCl (Maxipime) 1 gm Q8HRS IVP Last administered on 11/20/19at 06:05; Start 11/15/19 at 07:00 Sodium Bicarbonate (Sodium Bicarb Adult 8.4% Syr) 50 meq 1X ONCE IV Last administered on 11/15/19at 10:16; Start 11/15/19 at 10:15; Stop 11/15/19 at 10:16; Status DC Lidocaine HCl (Buffered Lidocaine 1%) 3 ml STK-MED ONCE .ROUTE ; Start 11/15/19 at 12:38; Stop 11/15/19 at 12:38; Status DC Pantoprazole Sodium (PROTONIX VIAL for IV PUSH) 40 mg DAILYAC IVP Last administered on 11/16/19at 07:58; Start 11/16/19 at 07:30; Stop 11/16/19 at 11:59; Status DC Lidocaine HCl (Buffered Lidocaine 1%) 6 ml 1X ONCE INJ Last administered on 11/15/19at 14:15; Start 11/15/19 at 14:15; Stop 11/15/19 at 14:20; Status DC Pantoprazole Sodium (PROTONIX VIAL for IV PUSH) 40 mg BID IVP Last administered on 11/20/19at 08:50; Start 11/16/19 at 21:00 Dextrose (Dextrose 50%-Water Syringe) 25 gm STK-MED ONCE IV ; Start 11/14/19 at 07:30; Stop 11/17/19 at 09:05; Status DC Sodium Chloride 500 ml @ 250 mls/hr 1X ONCE IV Last administered on 11/17/19at 20:42; Start 11/17/19 at 21:00; Stop 11/17/19 at 22:59; Status DC Sodium Chloride 1,000 ml @ 65 mls/hr [id number] IV Last administered on 11/17/19at 23:11; Start 11/17/19 at 22:30; Stop 11/18/19 at 10:30; Status DC Info (Tpn Per Pharmacy) 1 each PRN DAILY PRN MC SEE COMMENTS Last administered on 11/20/19at 12:20; Start 11/18/19 at 19:00 Sodium Chloride 1,000 ml @ 125 mls/hr Q8H IV Last administered on 11/19/19at 06:36; Start 11/18/19 at 22:00; Stop 11/19/19 at 13:59; Status DC Albumin Human 250 ml @ 62.5 mls/hr 1X ONCE IV Last administered on 11/18/19at 22:01; Start 11/18/19 at 22:00; Stop 11/19/19 at 01:59; Status DC Potassium Chloride/Water 100 ml @ 100 mls/hr 1X ONCE IV Last administered on 11/19/19at 08:00; Start 11/19/19 at 08:00; Stop 11/19/19 at 08:59; Status DC Sodium Chloride 90 meq/Potassium Chloride 50 meq/ Potassium Phosphate 13.6 mmol/Magnesium Sulfate 10 meq/ Calcium Gluconate 10 meq/ Multivitamins 10 ml/Chromium/ Copper/Manganese/ Seleni/Zn 1 ml/ Total Parenteral Nutrition/Amino Acids/Dextrose/ Fat Emulsion Intravenous 1,512 ml @ 63 mls/hr TPN CONT IV Last administered on 11/19/19at 22:19; Start 11/19/19 at 22:00; Stop 11/20/19 at 21:59 Magnesium Sulfate 50 ml @ 25 mls/hr 1X ONCE IV Last administered on 11/19/19at 14:26; Start 11/19/19 at 14:00; Stop 11/19/19 at 15:59; Status DC Potassium Chloride/Water 100 ml @ 100 mls/hr Q1H IV Last administered on 11/19/19at 16:05; Start 11/19/19 at 14:00; Stop 11/19/19 at 15:59; Status DC Linezolid/Dextrose 300 ml @ 300 mls/hr Q12HR IV Last administered on 11/20/19at 10:30; Start 11/20/19 at 09:00 Fluconazole/ Sodium Chloride 100 ml @ 100 mls/hr Q24H IV Last administered on 11/20/19at 08:50; Start 11/20/19 at 08:00 Albumin Human 500 ml @ 125 mls/hr 1X ONCE IV Last administered on 11/20/19at 08:49; Start 11/20/19 at 09:00; Stop 11/20/19 at 12:59; Status DC Potassium Chloride/Water 100 ml @ 100 mls/hr Q1H IV Last administered on 11/20/19at 11:26; Start 11/20/19 at 10:00; Stop 11/20/19 at 11:59; Status DC Sodium Chloride 90 meq/Potassium Chloride 50 meq/ Potassium Acetate 40 meq/Potassium Phosphate 13.6 mmol/Magnesium Sulfate 10 meq/ Calcium Gluconate 10 meq/ Multivitamins 10 ml/Chromium/ Copper/Manganese/ Seleni/Zn 1 ml/ Total Parenteral Nutrition/Amino Acids/Dextrose/ Fat Emulsion Intravenous 1,512 ml @ 63 mls/hr TPN CONT IV ; Start 11/20/19 at 22:00; Stop 11/21/19 at 21:59 Insulin Glargine (Lantus Syringe) 10 unit QHS SQ ; Start 11/20/19 at 21:00 Insulin Human Lispro (HumaLOG) 0-9 UNITS TIDWMEALS SQ ; Start 11/20/19 at 17:00; Stop 11/20/19 at 13:11; Status DC Dextrose (Dextrose 50%-Water Syringe) 12.5 gm PRN Q15MIN PRN IV SEE COMMENTS; Start 11/20/19 at 13:00 Insulin Human Lispro (HumaLOG) 0-9 UNITS Q4HRS SQ ; Start 11/20/19 at 16:00 Insulin Human Lispro (HumaLOG) 9 units 1X ONCE SQ ; Start 11/20/19 at 13:45; Stop 11/20/19 at 13:46 Active Scripts Active Oxycodone Hcl Immed.release (Oxycodone Hcl) 15 Mg Tablet 15 Mg PO PRN Q6HRS PRN 5 Days Reported Remeron (Mirtazapine) 15 Mg Tablet 1 Tab PO QHS Buspirone Hcl 10 Mg Tablet 1 Tab PO BIDACBL Alprazolam 0.5 Mg Tablet 1 Tab PO HS Acetaminophen 500 Mg Tablet 1 Tab PO PRN Q6HRS PRN 15 Days Ferrous Sulfate 325 Mg Tablet 65 Mg PO BID Pantoprazole Sodium (Pantoprazole Sodium) 40 Mg Tablet.dr 40 Mg PO DAILYAC Trazodone Hcl 50 Mg Tablet 1 Tab PO QHS Gabapentin (Gabapentin) 100 Mg Capsule 100 Mg PO TID Vitals/I & O Vital Sign - Last 24 Hours 11/19/19 11/19/19 11/19/19 11/19/19 14:00 15:00 15:33 16:00 Temp 98.0 98.0 Pulse 93 96 96 Resp 18 20 22 B/P (MAP) 114/82 (93) 107/74 (85) 104/76 (85) Pulse Ox 99 99 99 100 O2 Delivery Ventilator Ventilator Ventilator Ventilator 11/19/19 11/19/19 11/19/19 11/19/19 16:00 17:00 17:45 18:00 Pulse 101 104 Resp 20 16 B/P (MAP) 103/70 (81) 119/81 (94) Pulse Ox 100 99 100 O2 Delivery Mechanical Ventilator Ventilator Ventilator Ventilator 11/19/19 11/19/19 11/19/19 11/19/19 19:00 20:00 20:00 20:19 Temp 98.4 98.4 Pulse 101 100 Resp 18 18 B/P (MAP) 109/75 (86) 99/71 (80) Pulse Ox 99 100 97 O2 Delivery Ventilator Mechanical Ventilator Ventilator Ventilator 11/19/19 11/19/19 11/19/19 11/19/19 21:00 22:00 23:00 23:59 Temp 97.9 97.9 Pulse 102 91 97 100 Resp 22 30 20 20 B/P (MAP) 99/60 (73) 102/60 (74) 110/71 (84) 109/79 (89) Pulse Ox 97 97 100 100 O2 Delivery Ventilator Ventilator Ventilator Ventilator 11/19/19 11/20/19 11/20/19 11/20/19 23:59 00:15 01:00 02:00 Pulse 99 97 Resp 18 18 B/P (MAP) 105/73 (84) 110/78 (89) Pulse Ox 100 100 100 O2 Delivery Mechanical Ventilator Ventilator Ventilator Ventilator 11/20/19 11/20/19 11/20/19 11/20/19 03:00 03:50 04:00 04:00 Temp 97.8 97.8 Pulse 99 104 Resp 16 20 B/P (MAP) 109/75 (86) 124/90 (101) Pulse Ox 100 97 100 O2 Delivery Ventilator Ventilator Ventilator Mechanical Ventilator 11/20/19 11/20/19 11/20/19 11/20/19 05:00 06:00 07:00 07:45 Pulse 96 93 95 Resp 18 16 16 B/P (MAP) 100/72 (81) 104/74 (84) 107/75 (86) Pulse Ox 98 98 98 97 O2 Delivery Ventilator Ventilator Ventilator Ventilator 11/20/19 11/20/19 11/20/19 11/20/19 08:00 08:00 09:00 09:14 Temp 97.4 97.4 Pulse 98 98 Resp 20 21 B/P (MAP) 116/82 (93) 111/76 (88) Pulse Ox 100 99 100 O2 Delivery Ventilator Mechanical Ventilator Ventilator Ventilator 11/20/19 11/20/19 11/20/19 11/20/19 10:00 11:00 11:12 11:50 Pulse 92 98 Resp 18 18 B/P (MAP) 105/72 (83) 107/73 (84) Pulse Ox 100 97 100 O2 Delivery Ventilator Ventilator Ventilator Mechanical Ventilator 11/20/19 11/20/19 11/20/19 12:00 12:26 13:00 Temp 98.3 98.3 Pulse 90 98 Resp 16 18 B/P (MAP) 100/61 (74) 99/59 (72) Pulse Ox 100 100 99 O2 Delivery Ventilator Ventilator Ventilator Intake and Output 11/19/19 11/19/19 11/20/19 15:00 23:00 07:00 Intake Total 687 ml 1470 ml 443 ml Output Total 330 ml 560 ml 735 ml Balance 357 ml 910 ml -292 ml Justicifation of Admission Dx: Justifications for Admission: Justification of Admission Dx: Yes Comminuty Aquired Pneumonia: Med-High Risk Pt Sepsis: Infection CHRISTOPHER CARL MD Nov 20, 2019 13:32
[2019-11-20] MEDS ORDERED: INSULIN LISPRO 300 UNITS/3 ML VIAL. SQ ONE (13:45)
--- NOTE | 2019-11-20 15:17 | PDOC ---
SURGICAL PROGRESS NOTE DATE: 11/20/19 TIME: 15:08 Subjective unresponsive notes reviewed Vital Signs Vital Signs Date Time Temp Pulse Resp B/P (MAP) Pulse Ox O2 Delivery O2 Flow Rate FiO2 11/20/19 15:00 98 20 106/72 (83) 100 Ventilator 11/20/19 12:00 98.3 98.3 I&O Intake and Output 11/20/19 07:00 Intake Total 2600 ml Output Total 1625 ml Balance 975 ml IV Total 2178 ml Blood Product 322 ml Blood Product IV Normal Saline Flush 100 ml Output Urine Total 885 ml Stool Total 500 ml Gastric Drainage Total 150 ml Drainage Total 30 ml Other 60 ml General: Other (unresponsvie) Abdomen: Soft, Other (distended, wound with drainage ) Labs Laboratory Tests Test 11/18/19 16:37 11/19/19 06:00 11/19/19 08:00 11/19/19 12:42 Hemoglobin 8.0 g/dL (13.0-17.5) 7.0 g/dL (13.0-17.5) 9.0 g/dL (13.0-17.5) Hematocrit 24.2 % (39.0-53.0) 21.5 % (39.0-53.0) 27.2 % (39.0-53.0) Mean Corpuscular Hemoglobin Concent 33 g/dL (31-37) 33 g/dL (31-37) 33 g/dL (31-37) White Blood Count 17.1 x10^3/uL (4.0-11.0) 16.8 x10^3/uL (4.0-11.0) Red Blood Count 2.51 x10^6/uL (4.30-5.70) 3.14 x10^6/uL (4.30-5.70) Mean Corpuscular Volume 86 fL (79-100) 87 fL (79-100) Mean Corpuscular Hemoglobin 28 pg (25-35) 29 pg (25-35) Red Cell Distribution Width 20.1 % (11.5-14.5) 18.4 % (11.5-14.5) Platelet Count 129 x10^3/uL (140-400) 127 x10^3/uL (140-400) Neutrophils (%) (Auto) 90 % (31-73) Lymphocytes (%) (Auto) 3 % (24-48) Monocytes (%) (Auto) 6 % (0-9) Eosinophils (%) (Auto) 0 % (0-3) Basophils (%) (Auto) 0 % (0-3) Neutrophils # (Auto) 15.5 x10^3/uL (1.8-7.7) Lymphocytes # (Auto) 0.5 x10^3/uL (1.0-4.8) Monocytes # (Auto) 1.1 x10^3/uL (0.0-1.1) Eosinophils # (Auto) 0.0 x10^3/uL (0.0-0.7) Basophils # (Auto) 0.0 x10^3/uL (0.0-0.2) Sodium Level 139 mmol/L (136-145) Potassium Level 3.1 mmol/L (3.5-5.1) Chloride Level 107 mmol/L (98-107) Carbon Dioxide Level 24 mmol/L (21-32) Anion Gap 8 (6-14) Blood Urea Nitrogen 18 mg/dL (8-26) Creatinine 0.9 mg/dL (0.7-1.3) Estimated GFR (Cockcroft-Gault) 108.5 Glucose Level 120 mg/dL (70-99) Calcium Level 7.0 mg/dL (8.5-10.1) Phosphorus Level 3.0 mg/dL (2.6-4.7) Magnesium Level 1.9 mg/dL (1.8-2.4) O2 Saturation 98 % (92-99) Arterial Blood pH 7.44 (7.35-7.45) Arterial Blood pCO2 at Patient Temp 30 mmHg (35-46) Arterial Blood pO2 at Patient Temp 134 mmHg (75-108) Arterial Blood HCO3 20 mmol/L (21-28) Arterial Blood Base Excess -4 mmol/L (-3-3) FiO2 40/vent Clostridium difficile Toxin (PCR) Negative (NEGATIVE) Test 11/19/19 12:50 11/20/19 00:11 11/20/19 05:45 11/20/19 06:08 Potassium Level 3.1 mmol/L (3.5-5.1) 3.1 mmol/L (3.5-5.1) Glucose (Fingerstick) 143 mg/dL (70-99) 201 mg/dL (70-99) Hemoglobin 8.8 g/dL (13.0-17.5) Hematocrit 26.2 % (39.0-53.0) Mean Corpuscular Hemoglobin Concent 34 g/dL (31-37) Sodium Level 139 mmol/L (136-145) Chloride Level 109 mmol/L (98-107) Carbon Dioxide Level 24 mmol/L (21-32) Anion Gap 6 (6-14) Blood Urea Nitrogen 19 mg/dL (8-26) Creatinine 0.8 mg/dL (0.7-1.3) Estimated GFR (Cockcroft-Gault) 124.3 Glucose Level 230 mg/dL (70-99) Calcium Level 6.8 mg/dL (8.5-10.1) Magnesium Level 2.3 mg/dL (1.8-2.4) Test 11/20/19 08:00 11/20/19 12:55 O2 Saturation 97 % (92-99) Arterial Blood pH 7.41 (7.35-7.45) Arterial Blood pCO2 at Patient Temp 33 mmHg (35-46) Arterial Blood pO2 at Patient Temp 93 mmHg (75-108) Arterial Blood HCO3 20 mmol/L (21-28) Arterial Blood Base Excess -4 mmol/L (-3-3) FiO2 30 Glucose (Fingerstick) 304 mg/dL (70-99) Laboratory Tests Test 11/20/19 00:11 11/20/19 05:45 11/20/19 06:08 11/20/19 08:00 Glucose (Fingerstick) 143 mg/dL (70-99) 201 mg/dL (70-99) Hemoglobin 8.8 g/dL (13.0-17.5) Hematocrit 26.2 % (39.0-53.0) Mean Corpuscular Hemoglobin Concent 34 g/dL (31-37) Sodium Level 139 mmol/L (136-145) Potassium Level 3.1 mmol/L (3.5-5.1) Chloride Level 109 mmol/L (98-107) Carbon Dioxide Level 24 mmol/L (21-32) Anion Gap 6 (6-14) Blood Urea Nitrogen 19 mg/dL (8-26) Creatinine 0.8 mg/dL (0.7-1.3) Estimated GFR (Cockcroft-Gault) 124.3 Glucose Level 230 mg/dL (70-99) Calcium Level 6.8 mg/dL (8.5-10.1) Magnesium Level 2.3 mg/dL (1.8-2.4) O2 Saturation 97 % (92-99) Arterial Blood pH 7.41 (7.35-7.45) Arterial Blood pCO2 at Patient Temp 33 mmHg (35-46) Arterial Blood pO2 at Patient Temp 93 mmHg (75-108) Arterial Blood HCO3 20 mmol/L (21-28) Arterial Blood Base Excess -4 mmol/L (-3-3) FiO2 30 Test 11/20/19 12:55 Glucose (Fingerstick) 304 mg/dL (70-99) Assessment/Plan noted possible transfer pending Justicifation of Admission Dx: Justifications for Admission: Justification of Admission Dx: Yes Comminuty Aquired Pneumonia: Med-High Risk Pt Sepsis: Infection MAXIMILIANO GREENBERG APRN Nov 20, 2019 15:17
[2019-11-20] MEDS: INSULIN LISPRO 300 UNITS/3 ML VIAL. SQ SCH ×2 (15:44→20:28)
[2019-11-20] MEDS ORDERED: INSULIN LISPRO 300 UNITS/3 ML VIAL. SQ SCH (17:00)
[2019-11-20] MEDS: INSULIN GLARGINE SYRINGE. SQ SCH (20:30)
[2019-11-20] MEDS: ALPRAZolam 0.5 MG TABLET PO SCH (21:00)
[2019-11-20] MEDS ORDERED: TOTAL PARENTERAL NUTRITION IV SCH (22:00)
[2019-11-20] MEDS ORDERED: AMINO ACID IV SCH (22:00)
[2019-11-20] MEDS ORDERED: [UNRECOGNIZED DRUG - OTHER] IV SCH (22:00)
[2019-11-20] MEDS ORDERED: DEXTROSE 70% IV SCH (22:00)
[2019-11-21] VITALS (23 sets, daily range): BP systolic 94–118; BP diastolic 63–82
[2019-11-21] MEDS: INSULIN LISPRO 300 UNITS/3 ML VIAL. SQ SCH ×6 (00:02→20:24)
[2019-11-21] MEDS: VALPROIC ACID (AS SODIUM SALT) 500 MG in IV DEXTROSE 5% 50 ML IV SCH ×3 (05:54→21:17)
[2019-11-21] MEDS: CEFEPIME HCL IV Push 1 GM VIAL. IVP SCH ×3 (05:54→22:16)
[2019-11-21 06:39] LABS: CALCIUM 7.2 mg/dL (8.5-10.1); CREATININE 0.6 mg/dL (0.7-1.3); GFR 173.3; MAGNESIUM 2.1 mg/dL (1.8-2.4); POTASSIUM 3.1 mmol/L (3.5-5.1)
[2019-11-21 06:55] LABS: BASO % 0 % (0-3); EOS % 0 % (0-3); HEMATOCRIT 23.1 % (39.0-53.0); HEMOGLOBIN 7.7 g/dL (13.0-17.5); LYMPH # 0.6 x10^3/uL (1.0-4.8); LYMPH % 8 % (24-48); MEAN CORPUSCULAR HEMOGLOBIN 30 pg (25-35); MEAN CORPUSCULAR HGB CONC 33 g/dL (31-37); MEAN CORPUSCULAR VOLUME 89 fL (79-100); MONO # 0.5 x10^3/uL (0.0-1.1); MONO % 7 % (0-9); NEUT # 6.3 x10^3/uL (1.8-7.7); NEUT % 86 % (31-73); PLATELET COUNT 102 x10^3/uL (140-400); RED CELL DISTRIBUTION WIDTH 18.5 % (11.5-14.5); WHITE BLOOD COUNT 7.4 x10^3/uL (4.0-11.0)
--- NOTE | 2019-11-21 07:55 | PDOC ---
Infectious Disease Note Subjective Subjective intubated on vent, unresponsive, off sedation ROS ROS rectal bleed, no n/v Vital Sign Vital Signs Vital Signs Date Time Temp Pulse Resp B/P (MAP) Pulse Ox O2 Delivery O2 Flow Rate FiO2 11/21/19 07:00 99 24 114/75 (88) 100 Ventilator 11/21/19 04:00 98.6 98.6 Physical Exam PHYSICAL EXAM GENERAL: Thin, cachectic male Intubated HEENT: Norm conj. ETT NECK: Supple, no lymphadenopathy. LUNGS: Decreased breath sounds at the bases, increased Resp rate HEART: S1, S2. tachy ABDOMEN: Distended, soft, nontender, fistula in place - bloody drainage, GJ tube in place.,, EC fistula + - [place] with 3 plus edema EXTREMITIES: Edema, no cyanosis.RLE IO - old site clean DERMATOLOGIC: Warm, dry. 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 NEUROLOGIC: unresponsive DERMATOLOGIC: No generalized rash RIJ - clean. Labs Lab Laboratory Tests Test 11/20/19 08:00 11/20/19 12:55 11/20/19 15:36 11/20/19 20:27 O2 Saturation 97 % (92-99) Arterial Blood pH 7.41 (7.35-7.45) Arterial Blood pCO2 at Patient Temp 33 mmHg (35-46) Arterial Blood pO2 at Patient Temp 93 mmHg (75-108) Arterial Blood HCO3 20 mmol/L (21-28) Arterial Blood Base Excess -4 mmol/L (-3-3) FiO2 30 Glucose (Fingerstick) 304 mg/dL (70-99) 311 mg/dL (70-99) 258 mg/dL (70-99) Test 11/21/19 00:00 11/21/19 04:27 11/21/19 06:00 Glucose (Fingerstick) 226 mg/dL (70-99) 157 mg/dL (70-99) White Blood Count 7.4 x10^3/uL (4.0-11.0) Red Blood Count 2.60 x10^6/uL (4.30-5.70) Hemoglobin 7.7 g/dL (13.0-17.5) Hematocrit 23.1 % (39.0-53.0) Mean Corpuscular Volume 89 fL (79-100) Mean Corpuscular Hemoglobin 30 pg (25-35) Mean Corpuscular Hemoglobin Concent 33 g/dL (31-37) Red Cell Distribution Width 18.5 % (11.5-14.5) Platelet Count 102 x10^3/uL (140-400) Neutrophils (%) (Auto) 86 % (31-73) Lymphocytes (%) (Auto) 8 % (24-48) Monocytes (%) (Auto) 7 % (0-9) Eosinophils (%) (Auto) 0 % (0-3) Basophils (%) (Auto) 0 % (0-3) Neutrophils # (Auto) 6.3 x10^3/uL (1.8-7.7) Lymphocytes # (Auto) 0.6 x10^3/uL (1.0-4.8) Monocytes # (Auto) 0.5 x10^3/uL (0.0-1.1) Eosinophils # (Auto) 0.0 x10^3/uL (0.0-0.7) Basophils # (Auto) 0.0 x10^3/uL (0.0-0.2) Sodium Level 142 mmol/L (136-145) Potassium Level 3.1 mmol/L (3.5-5.1) Chloride Level 113 mmol/L (98-107) Carbon Dioxide Level 24 mmol/L (21-32) Anion Gap 5 (6-14) Blood Urea Nitrogen 13 mg/dL (8-26) Creatinine 0.6 mg/dL (0.7-1.3) Estimated GFR (Cockcroft-Gault) 173.3 Glucose Level 143 mg/dL (70-99) Calcium Level 7.2 mg/dL (8.5-10.1) Phosphorus Level 1.0 mg/dL (2.6-4.7) Magnesium Level 2.1 mg/dL (1.8-2.4) Triglycerides Level 65 mg/dL (0-150) Micro Pancreatic bed drainage MIXED AEROBIC MARCO on 11/18/19 at 1242 INCLUDING: MANY [ENTEROCOCCUS FAECIUM VRE] FEW [ESCHERICHIA COLI] FEW [KLEBSIELLA OXYTOCA RAOULTELLA] FEW [RADHA ALBICANS] ENTEROCOCCUS FAECIUM VRE ESCHERICHIA COLI KLEBSIELLA OXYTOCA RAOULTELLA RADHA ALBICANS Streptomycin Synergy Screen S Gentamicin Synergy Screen S Objective Assessment Fever - better GNR bactermia 11/13 ID FINAL ID= [CITROBACTER FREUNDI] KLEBSIELLA OXYTOCA RAOULTELLA S/p IR abd drain 11/14 Kleb and Citrobacteri in sputum - Leukocytosis - S/p Seizures 11/13 Elevated Troponin S/p IVC (actually in iliac) 11/13 Acute hypoxic resp failure intubated PEA Gj tube replaced 11/12 ? Loculated LL effusion on CT 11/12 Leukocytosis ? reactive 1. Bilateral lower extremity deep venous thrombosis 11/06 2. Clostridium difficile colitis 10/22 3. Leukocytosis with bandemia- better off abx 4. Left basilar pleural effusion and consolidation, chronic. 5. History of severe pancreatitis, status post exploratory laparotomy with pancreatic necrosectomy, cholecystotomy tube placement, gastrostomy tube placement, tracheostomy placement, five drains. Ascitic fluid drained status post tracheostomy recovered, history of hepatitis B during last admission in 07/2019. 6. Severe protein malnutrition Pancreatic bed abscess s/p drainage,,, MIXED AEROBIC MARCO on 11/18/19 at 1242 INCLUDING: MANY [ENTEROCOCCUS FAECIUM VRE] FEW [ESCHERICHIA COLI] FEW [KLEBSIELLA OXYTOCA RAOULTELLA] FEW [RADHA ALBICANS] ENTEROCOCCUS FAECIUM VRE ESCHERICHIA COLI KLEBSIELLA OXYTOCA RAOULTELLA RADHA ALBICANS Streptomycin Synergy Screen S Gentamicin Synergy Screen S Plan Plan of Care cont cefepime and po vanc zyvox and diflucan D/w nursing cefepime can cause seizure though other option is meropenem , that is more likely to exacerbate seizure , hence not much option ( citrobacter in blood ) prog KRISTIAN Monte MD Nov 21, 2019 07:55
[2019-11-21] MEDS: FLUCONAZOLE 200MG/100ML PREMIX 100 ML IV SCH (08:21)
[2019-11-21] MEDS: VANCOMYCIN 125 MG/2.5 ML ORAL SOLUTION. PO SCH ×4 (08:22→20:29)
--- NOTE | 2019-11-21 08:22 | PDOC ---
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 Sepsis, present on admission - 2/2 c difficile. Acute Hypoxic respiratory Failure 2/2 cardiac arrest-- now requiring mechanical ventilation S/P Cardiac arrest unknown etiology Possible seizures Acute GI bleed, unknown source suspect C. difficile colitis possible ischemic colitis Status post CT-guided abscess drain placement 11/15/2019 Bilateral DVT Neutropenia and bandemia, recent C. diff infection Toxic encephalopathy secondary to medication, currently resolved C. diff Diarrhea H/o recent Severe pancreatitis s/p ex-lap with pancreatic necrosectomy, cholecystostomy tube placement, gastrostomy tube placement, tracheostomy placeme nt, 5 drains, 1.5L ascites drained - likely gallstone Status post tracheostomy - reversed, recovered Severe protein calorie malnutrition - started G-tube feeds History of Hepatitis B J tube replaced by IR during last hospitalization but tolerating TFs at night well. Hypokalemia GNR bactermia 11/13 ID FINAL ID= [CITROBACTER FREUNDI] KLEBSIELLA OXYTOCA RAOULTELLA Pancreatic bed abscess - MIXED AEROBIC MARCO on 11/18/19 at 1242 INCLUDING: MANY [ENTEROCOCCUS FAECIUM VRE] FEW [ESCHERICHIA COLI] FEW [KLEBSIELLA OXYTOCA RAOULTELLA] FEW [RADHA ALBICANS] ENTEROCOCCUS FAECIUM VRE ESCHERICHIA COLI KLEBSIELLA OXYTOCA RAOULTELLA RADHA ALBICANS Streptomycin Synergy Screen S Gentamicin Synergy Screen S Patient is intubated and sedated Full code Discussed with RN and LETICIA Dispo surgery is contraindicated at this time, family requests neuro ICU transfer Surrogate decision maker is Deacon Mata phone: [phone] Total critical care time spent is 45 minutes History of Present Illness History of Present Illness Mr Mata is a 49-year-old with past medical history of GERD pancreatitis history of DVT who came to the emergency department complaining of bilateral leg swelling. Doppler ultrasound revealing bilateral DVTs. Apparently the patient had been on Coumadin before it is unclear at this point if the patient has been taking Coumadin prior to this visit to the emergency department. Patient denies any headaches no blurred vision no strokelike symptoms no chest pain palpitations no shortness of breath has been reported. Patient denies abdominal pain no nausea vomiting or diarrhea. The patient certainly complains of discomfort over his bilateral extremities due to the edema. 11/08: Patient with recent admission to the hospital for C. difficile and still having diarrhea he had a significant bandemia which could be a consequence of ongoing C. difficile infection. 11/11: Ostomy in RUQ and PEG tube in LUQ, In bed, in NAD, eating breakfast PO, Complaining of abdominal pain and insomnia 11/12: Discussed with via phone call 11/13: Patient is sedated and intubated. S/P cardiac arrest with 3 rounds of CPR and EPI/ bicarb, transferred to ICU. 11/14: Patient did have large volume lower GI bleed with about 300 cc. Status p ost 2 units PRBCs. Patient's chart, labs, images were reviewed and discussed with RN 11/15: Patient seen and examined at bedside. Patient continues to have rectal bleeding with clots. 11/16: Seen and examined. Afebrile. intubated, continues to have bloody stools. On levophed. Not awakening off sedation. CT head concerning for acute CVA. EEG with PLEDs 11/17: Off sedation for 48 hours. Still with gag, not opening eyes. Significant stool output. WBC 20 K, Hb stable > 7. Cr improved. 11/18: Off sedation 72 hours, no active response, gag positive. Significant stool output, WBC 17, Hb 7 from 8.5 yesterday, K3.1. Discussed findings of EEG with neurology MRI: 1. There is signal change of the supratentorial parenchyma bilaterally, right greater than left and also of the cerebellum greater on the left as stated, could be related to sequela of various ages of subacute infarction. However sequela of encephalitis is difficult to exclude by imaging especially given signal alteration with cortical involvement of the lateral left temporal lobe which is not associated with diffusion signal change, other consideration sequela of seizure/syncope focus. 2. There is prominent fluid and thickening of the left mastoid air cells, uncertain sterility. PLEDs on repeat EEG 11/19: Afebrile. Does not open eyes to painful stimuli, still does have gag with suctioning. Respirations without vent support are more irregular today. K3.1. Hb 8.8. ABG 7.41//. I discussed the findings of the EEG and MRI is consistent with a large frontal parietal CVA likely from the PLEDs secondary to this. I did discuss the less likely possibility of epileptiform activity, though patient has no history of seizures. They have requested second opinion from a facility where neuro critical care is available as we do not have the service at [facility]. Afebrile. Withdraws to painful stimuli. Breathing 24 /minute, not awakening, does not move limbs. K 3.1, Phos 1. Hb 7.7. Some blood in rectal tube overnight. Plan: Albumin for hypotension IV potassium and phos replacement Patient family has requested transfer to facility with continuous EEG monitoring and neuro-ICU capability given the MRI and EEG possibility of seizure activity Vitals/I&O Vitals/I&O: Vital Signs Date Time Temp Pulse Resp B/P (MAP) Pulse Ox O2 Delivery O2 Flow Rate FiO2 11/21/19 07:00 99 24 114/75 (88) 100 Ventilator 11/21/19 04:00 98.6 98.6 I & O 11/20/19 11/20/19 11/21/19 15:00 23:00 07:00 Intake Total 1265 ml 1434 ml 646 ml Output Total 1020 ml 915 ml 1250 ml Balance 245 ml 519 ml -604 ml Physical Exam Physical Exam: GENERAL: Thin, cachectic male Intubated HEENT: Norm conj. ETT NECK: Supple, no lymphadenopathy. LUNGS: Decreased breath sounds at the bases, increased Resp rate HEART: S1, S2. tachy ABDOMEN: Distended, soft, nontender, fistula in place - bloody drainage, GJ tube in place.,, EC fistula + - [place] with 3 plus edema EXTREMITIES: Edema, no cyanosis.RLE IO - old site clean DERMATOLOGIC: Warm, dry. 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 NEUROLOGIC: unresponsive DERMATOLOGIC: No generalized rash RIJ - clean. General: Other (unresponsvie) Heart: Regular rate (sinus tach) Lungs: Other (decreased BLL) Abdomen: Soft, Other (distended, wound with drainage ) Extremities: No cyanosis Skin: No rashes, No significant lesion Labs Labs: Laboratory Tests Test 11/20/19 12:55 11/20/19 15:36 11/20/19 20:27 11/21/19 00:00 Glucose (Fingerstick) 304 mg/dL (70-99) 311 mg/dL (70-99) 258 mg/dL (70-99) 226 mg/dL (70-99) Test 11/21/19 04:27 11/21/19 06:00 Glucose (Fingerstick) 157 mg/dL (70-99) White Blood Count 7.4 x10^3/uL (4.0-11.0) Red Blood Count 2.60 x10^6/uL (4.30-5.70) Hemoglobin 7.7 g/dL (13.0-17.5) Hematocrit 23.1 % (39.0-53.0) Mean Corpuscular Volume 89 fL (79-100) Mean Corpuscular Hemoglobin 30 pg (25-35) Mean Corpuscular Hemoglobin Concent 33 g/dL (31-37) Red Cell Distribution Width 18.5 % (11.5-14.5) Platelet Count 102 x10^3/uL (140-400) Neutrophils (%) (Auto) 86 % (31-73) Lymphocytes (%) (Auto) 8 % (24-48) Monocytes (%) (Auto) 7 % (0-9) Eosinophils (%) (Auto) 0 % (0-3) Basophils (%) (Auto) 0 % (0-3) Neutrophils # (Auto) 6.3 x10^3/uL (1.8-7.7) Lymphocytes # (Auto) 0.6 x10^3/uL (1.0-4.8) Monocytes # (Auto) 0.5 x10^3/uL (0.0-1.1) Eosinophils # (Auto) 0.0 x10^3/uL (0.0-0.7) Basophils # (Auto) 0.0 x10^3/uL (0.0-0.2) Sodium Level 142 mmol/L (136-145) Potassium Level 3.1 mmol/L (3.5-5.1) Chloride Level 113 mmol/L (98-107) Carbon Dioxide Level 24 mmol/L (21-32) Anion Gap 5 (6-14) Blood Urea Nitrogen 13 mg/dL (8-26) Creatinine 0.6 mg/dL (0.7-1.3) Estimated GFR (Cockcroft-Gault) 173.3 Glucose Level 143 mg/dL (70-99) Calcium Level 7.2 mg/dL (8.5-10.1) Phosphorus Level 1.0 mg/dL (2.6-4.7) Magnesium Level 2.1 mg/dL (1.8-2.4) Triglycerides Level 65 mg/dL (0-150) Comment Review of Relevant I have reviewed the following items alexandra (where applicable) has been applied. Medications: Current Medications Medications (Trade) Dose Ordered Sig/Jesse Route PRN Reason Start Time Stop Time Status Last Admin Dose Admin Linezolid/Dextrose 300 ml @ 300 mls/hr Q12HR IV 11/20/19 09:00 11/20/19 20:38 Albumin Human 500 ml @ 125 mls/hr 1X ONCE IV 11/20/19 09:00 11/20/19 12:59 DC 11/20/19 08:49 Potassium Chloride/Water 100 ml @ 100 mls/hr Q1H IV 11/20/19 10:00 11/20/19 11:59 DC 11/20/19 11:26 Sodium Chloride 90 meq/Potassium Chloride 50 meq/ Potassium Acetate 40 meq/Potassium Phosphate 13.6 mmol/Magnesium Sulfate 10 meq/ Calcium Gluconate 10 meq/ Multivitamins 10 ml/Chromium/ Copper/Manganese/ Seleni/Zn 1 ml/ Total Parenteral Nutrition/Amino Acids/Dextrose/ Fat Emulsion Intravenous 1,512 ml @ 63 mls/hr TPN CONT IV 11/20/19 22:00 11/21/19 21:59 11/20/19 22:00 Insulin Glargine (Lantus Syringe) 10 unit QHS SQ 11/20/19 21:00 11/20/19 20:30 Insulin Human Lispro (HumaLOG) 0-9 UNITS Q4HRS SQ 11/20/19 16:00 11/21/19 04:29 Insulin Human Lispro (HumaLOG) 9 units 1X ONCE SQ 11/20/19 13:45 11/20/19 13:46 DC 11/20/19 14:05 Justicifation of Admission Dx: Justifications for Admission: Justification of Admission Dx: Yes Comminuty Aquired Pneumonia: Med-High Risk Pt Sepsis: Infection JUAN ANTONIO OWUSU MD Nov 21, 2019 08:22
[2019-11-21] MEDS: POTASSIUM PHOS,M-BASIC-D-BASIC 13.6 MMOL in IV NORMAL SALINE 250ML 250 ML IV SCH ×2 (08:23→10:35)
[2019-11-21] MEDS: FERROUS SULFATE 325 MG TABLET. PO SCH ×2 (08:23→16:26)
[2019-11-21] MEDS: PANTOPRAZOLE IV PUSH 40 MG VIAL. IVP SCH ×2 (08:23→20:29)
[2019-11-21] MEDS: levETIRAcetam 1,000 MG in IV DEXTROSE 5% 100ML 100 ML IV SCH ×2 (08:24→21:16)
[2019-11-21] MEDS: POTASSIUM CHLORIDE 20MEQ 100 ML IV SCH ×2 (08:25→10:35)
--- NOTE | 2019-11-21 08:39 | PDOC ---
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 Has been off sedation for 4 days Pancreatitis, respiratory failure, gastrointestinal hemorrhage while on anticoagulation. Poor prognosis Plan Further more aggressive anti-seizure treatments unlikely to affect overall outcome, but is interested in transferring him for continuous EEG monitoring, . [facility] and have refused transfer Dr. Banuelos will see as needed over the weekend. Discussed with patient's Discussed with Dr. Gibbs Subjective None Objective Vital Signs Date Time Temp Pulse Resp B/P (MAP) Pulse Ox O2 Delivery O2 Flow Rate FiO2 11/21/19 08:21 100 Ventilator 11/21/19 07:00 99 24 114/75 (88) 11/21/19 04:00 98.6 98.6 Intake and Output 11/21/19 07:00 Intake Total 3345 ml Output Total 3185 ml Balance 160 ml IV Total 3255 ml Other 90 ml Output Urine Total 1365 ml Stool Total 1600 ml Gastric Drainage Total 200 ml Drainage Total 20 ml PHYSICAL EXAM Off sedation, intubated PERRL. EOMI, positive oculocephalic reflex. CN: no focal findings. Muscle tone: normal. Muscle strength: no movement to pain DTR: 1+ Plantar reflex: silent Gait: not examined in bed. Sensory exam: not cooperative. Cerebellar: not cooperative Review of Relevant I have reviewed the following items alexandra (where applicable) has been applied. Labs Laboratory Tests Test 11/19/19 12:42 11/19/19 12:50 11/20/19 00:11 11/20/19 05:45 White Blood Count 16.8 x10^3/uL (4.0-11.0) Red Blood Count 3.14 x10^6/uL (4.30-5.70) Hemoglobin 9.0 g/dL (13.0-17.5) 8.8 g/dL (13.0-17.5) Hematocrit 27.2 % (39.0-53.0) 26.2 % (39.0-53.0) Mean Corpuscular Volume 87 fL (79-100) Mean Corpuscular Hemoglobin 29 pg (25-35) Mean Corpuscular Hemoglobin Concent 33 g/dL (31-37) 34 g/dL (31-37) Red Cell Distribution Width 18.4 % (11.5-14.5) Platelet Count 127 x10^3/uL (140-400) Clostridium difficile Toxin (PCR) Negative (NEGATIVE) Potassium Level 3.1 mmol/L (3.5-5.1) 3.1 mmol/L (3.5-5.1) Glucose (Fingerstick) 143 mg/dL (70-99) Sodium Level 139 mmol/L (136-145) Chloride Level 109 mmol/L (98-107) Carbon Dioxide Level 24 mmol/L (21-32) Anion Gap 6 (6-14) Blood Urea Nitrogen 19 mg/dL (8-26) Creatinine 0.8 mg/dL (0.7-1.3) Estimated GFR (Cockcroft-Gault) 124.3 Glucose Level 230 mg/dL (70-99) Calcium Level 6.8 mg/dL (8.5-10.1) Magnesium Level 2.3 mg/dL (1.8-2.4) Test 11/20/19 06:08 11/20/19 08:00 11/20/19 12:55 11/20/19 15:36 Glucose (Fingerstick) 201 mg/dL (70-99) 304 mg/dL (70-99) 311 mg/dL (70-99) O2 Saturation 97 % (92-99) Arterial Blood pH 7.41 (7.35-7.45) Arterial Blood pCO2 at Patient Temp 33 mmHg (35-46) Arterial Blood pO2 at Patient Temp 93 mmHg (75-108) Arterial Blood HCO3 20 mmol/L (21-28) Arterial Blood Base Excess -4 mmol/L (-3-3) FiO2 30 Test 11/20/19 20:27 11/21/19 00:00 11/21/19 04:27 11/21/19 06:00 Glucose (Fingerstick) 258 mg/dL (70-99) 226 mg/dL (70-99) 157 mg/dL (70-99) White Blood Count 7.4 x10^3/uL (4.0-11.0) Red Blood Count 2.60 x10^6/uL (4.30-5.70) Hemoglobin 7.7 g/dL (13.0-17.5) Hematocrit 23.1 % (39.0-53.0) Mean Corpuscular Volume 89 fL (79-100) Mean Corpuscular Hemoglobin 30 pg (25-35) Mean Corpuscular Hemoglobin Concent 33 g/dL (31-37) Red Cell Distribution Width 18.5 % (11.5-14.5) Platelet Count 102 x10^3/uL (140-400) Neutrophils (%) (Auto) 86 % (31-73) Lymphocytes (%) (Auto) 8 % (24-48) Monocytes (%) (Auto) 7 % (0-9) Eosinophils (%) (Auto) 0 % (0-3) Basophils (%) (Auto) 0 % (0-3) Neutrophils # (Auto) 6.3 x10^3/uL (1.8-7.7) Lymphocytes # (Auto) 0.6 x10^3/uL (1.0-4.8) Monocytes # (Auto) 0.5 x10^3/uL (0.0-1.1) Eosinophils # (Auto) 0.0 x10^3/uL (0.0-0.7) Basophils # (Auto) 0.0 x10^3/uL (0.0-0.2) Sodium Level 142 mmol/L (136-145) Potassium Level 3.1 mmol/L (3.5-5.1) Chloride Level 113 mmol/L (98-107) Carbon Dioxide Level 24 mmol/L (21-32) Anion Gap 5 (6-14) Blood Urea Nitrogen 13 mg/dL (8-26) Creatinine 0.6 mg/dL (0.7-1.3) Estimated GFR (Cockcroft-Gault) 173.3 Glucose Level 143 mg/dL (70-99) Calcium Level 7.2 mg/dL (8.5-10.1) Phosphorus Level 1.0 mg/dL (2.6-4.7) Magnesium Level 2.1 mg/dL (1.8-2.4) Triglycerides Level 65 mg/dL (0-150) Test 11/21/19 08:18 Glucose (Fingerstick) 119 mg/dL (70-99) Laboratory Tests Test 11/20/19 12:55 11/20/19 15:36 11/20/19 20:27 11/21/19 00:00 Glucose (Fingerstick) 304 mg/dL (70-99) 311 mg/dL (70-99) 258 mg/dL (70-99) 226 mg/dL (70-99) Test 11/21/19 04:27 11/21/19 06:00 11/21/19 08:18 Glucose (Fingerstick) 157 mg/dL (70-99) 119 mg/dL (70-99) White Blood Count 7.4 x10^3/uL (4.0-11.0) Red Blood Count 2.60 x10^6/uL (4.30-5.70) Hemoglobin 7.7 g/dL (13.0-17.5) Hematocrit 23.1 % (39.0-53.0) Mean Corpuscular Volume 89 fL (79-100) Mean Corpuscular Hemoglobin 30 pg (25-35) Mean Corpuscular Hemoglobin Concent 33 g/dL (31-37) Red Cell Distribution Width 18.5 % (11.5-14.5) Platelet Count 102 x10^3/uL (140-400) Neutrophils (%) (Auto) 86 % (31-73) Lymphocytes (%) (Auto) 8 % (24-48) Monocytes (%) (Auto) 7 % (0-9) Eosinophils (%) (Auto) 0 % (0-3) Basophils (%) (Auto) 0 % (0-3) Neutrophils # (Auto) 6.3 x10^3/uL (1.8-7.7) Lymphocytes # (Auto) 0.6 x10^3/uL (1.0-4.8) Monocytes # (Auto) 0.5 x10^3/uL (0.0-1.1) Eosinophils # (Auto) 0.0 x10^3/uL (0.0-0.7) Basophils # (Auto) 0.0 x10^3/uL (0.0-0.2) Sodium Level 142 mmol/L (136-145) Potassium Level 3.1 mmol/L (3.5-5.1) Chloride Level 113 mmol/L (98-107) Carbon Dioxide Level 24 mmol/L (21-32) Anion Gap 5 (6-14) Blood Urea Nitrogen 13 mg/dL (8-26) Creatinine 0.6 mg/dL (0.7-1.3) Estimated GFR (Cockcroft-Gault) 173.3 Glucose Level 143 mg/dL (70-99) Calcium Level 7.2 mg/dL (8.5-10.1) Phosphorus Level 1.0 mg/dL (2.6-4.7) Magnesium Level 2.1 mg/dL (1.8-2.4) Triglycerides Level 65 mg/dL (0-150) Microbiology 11/15/19 Gram Stain - Final, Resulted 11/15/19 Aerobic and Anaerobic Culture - Preliminary, Resulted 11/15/19 Antimicrobic Susceptibility - Preliminary, Resulted 11/14/19 Blood Culture - Final, Complete NO GROWTH AFTER 5 DAYS 11/14/19 Gram Stain Evaluation - Final, Complete 11/14/19 Respiratory Culture - Final, Complete 11/14/19 Antimicrobic Susceptibility - Final, Complete 11/07/19 Urine Culture - Final, Complete Medications Current Medications Ceftriaxone Sodium (Rocephin) 1 gm 1X ONCE IVP ; Start 11/08/19 at 00:00; Stop 11/08/19 at 01:23; Status DC Enoxaparin Sodium (Lovenox 80mg Syringe) 80 mg 1X ONCE SQ Last administered on 11/08/19at 02:43; Start 11/08/19 at 00:00; Stop 11/08/19 at 00:01; Status DC Ceftriaxone Sodium (Rocephin Im) 1 gm 1X ONCE IM Last administered on 11/08/19at 02:42; Start 11/08/19 at 01:45; Stop 11/08/19 at 01:46; Status DC Lorazepam (Ativan) 0.5 mg 1X ONCE PO Last administered on 11/08/19at 03:28; Start 11/08/19 at 03:15; Stop 11/08/19 at 03:16; Status DC Acetaminophen (Tylenol) 500 mg PRN Q6HRS PRN PO FEVER Last administered on at 04:36; Start 11/08/19 at 07:30 Alprazolam (Xanax) 0.5 mg HS PO Last administered on 11/11/19at 20:38; Start 11/08/19 at 21:00 Buspirone HCl (Buspar) 10 mg BIDACBL PO Last administered on 11/08/19at 10:54; Start 11/08/19 at 07:30; Stop 11/08/19 at 11:46; Status DC Ferrous Sulfate (Feosol) 325 mg BIDWMEALS PO Last administered on 11/21/19at 08:23; Start 11/08/19 at 08:00 Gabapentin (Neurontin) 100 mg TID PO Last administered on 11/08/19at 10:54; Start 11/08/19 at 09:00; Stop 11/08/19 at 11:46; Status DC Mirtazapine (Remeron) 15 mg QHS PO ; Start 11/08/19 at 21:00; Stop 11/08/19 at 17:19; Status DC Pantoprazole Sodium (Protonix) 40 mg DAILYAC PO Last administered on 11/15/19at 08:59; Start 11/08/19 at 08:00; Stop 11/15/19 at 12:56; Status DC Trazodone HCl (Desyrel) 50 mg QHS PO ; Start 11/08/19 at 21:00; Stop 11/08/19 at 17:19; Status DC Oxycodone HCl (Roxicodone) 15 mg PRN Q6HRS PRN PO MODEARTE - SEVERE PAIN Last administered on 11/13/19at 11:01; Start 11/08/19 at 07:45 Apixaban (Eliquis) 10 mg BID PO Last administered on 11/13/19at 21:32; Start 11/08/19 at 09:00; Stop 11/14/19 at 10:08; Status DC Apixaban (Eliquis) 5 mg BID PO ; Start 11/15/19 at 09:00; Stop 11/14/19 at 10:08; Status DC Info (Anti-Coagulation Monitoring By Pharmacy) 1 each PRN DAILY PRN MC SEE COMMENTS Last administered on 11/13/19at 15:20; Start 11/08/19 at 07:45 Vancomycin HCl (Vancomycin Oral Solution) 125 mg [id number] PO Last administered on 11/08/19at 20:48; Start 11/08/19 at 17:30; Stop 11/09/19 at 09:55; Status DC Vancomycin HCl (Vancomycin Oral Solution) 250 mg [id number] PO Last administered on 11/11/19at 20:38; Start 11/09/19 at 13:00; Stop 11/12/19 at 09:03; Status DC Lactobacillus Rhamnosus (Culturelle) 1 cap BID PO Last administered on 11/19/19at 09:52; Start 11/09/19 at 21:00; Stop 11/19/19 at 10:08; Status DC Piperacillin Sod/ Tazobactam Sod 3.375 gm/Sodium Chloride 50 ml @ 100 mls/hr Q6HRS IV Last administered on 11/10/19at 05:58; Start 11/09/19 at 18:00; Stop 11/10/19 at 11:45; Status DC Temazepam (Restoril) 15 mg PRN QHS PRN PO INSOMNIA Last administered on 11/12/19at 23:15; Start 11/12/19 at 09:00 Vancomycin HCl (Vancomycin Oral Solution) 125 mg [id number] PO Last administered on 11/21/19at 08:22; Start 11/12/19 at 10:00 Iohexol (Omnipaque 350 Mg/ml) 100 ml 1X ONCE IV Last administered on 11/13/19at 08:15; Start 11/13/19 at 08:15; Stop 11/13/19 at 08:22; Status DC Info (CONTRAST GIVEN -- Rx MONITORING) 1 each PRN DAILY PRN MC SEE COMMENTS; Start 11/13/19 at 08:30; Stop 11/13/19 at 09:04; Status DC Fentanyl Citrate (Fentanyl 2ml Vial) 100 mcg STK-MED ONCE .ROUTE ; Start 11/13/19 at 08:43; Stop 11/13/19 at 08:43; Status DC Iohexol (Omnipaque 240 Mg/ml) 50 ml STK-MED ONCE .ROUTE ; Start 11/13/19 at 08:45; Stop 11/13/19 at 08:46; Status DC Fentanyl Citrate (Fentanyl 2ml Vial) 50 mcg 1X ONCE IV Last administered on 11/13/19at 09:37; Start 11/13/19 at 09:00; Stop 11/13/19 at 09:03; Status DC Iohexol (Omnipaque 240 Mg/ml) 50 ml 1X ONCE PO Last administered on 11/13/19at 09:37; Start 11/13/19 at 09:00; Stop 11/13/19 at 09:03; Status DC Info (CONTRAST GIVEN -- Rx MONITORING) 1 each PRN DAILY PRN MC SEE COMMENTS; Start 11/13/19 at 09:15; Stop 11/15/19 at 09:14; Status DC Morphine Sulfate (Morphine Sulfate) 2 mg PRN Q2HR PRN IV PAIN Last administered on 11/13/19at 11:34; Start 11/13/19 at 11:30; Stop 11/13/19 at 13:53; Status DC Morphine Sulfate (Morphine Sulfate) 4 mg PRN Q2HR PRN IVP MODERATE TO SEVERE PAIN Last administered on 11/14/19at 08:16; Start 11/13/19 at 14:00 Ondansetron HCl (Zofran) 4 mg PRN Q6HRS PRN IVP NAUSEA/VOMITING Last administered on 11/14/19at 00:13; Start 11/13/19 at 19:30 Dextrose (Dextrose 50%-Water Syringe) 25 gm STK-MED ONCE IV ; Start 11/14/19 at 07:28; Stop 11/14/19 at 07:28; Status DC Epinephrine HCl 5 mg/Sodium Chloride 255 ml @ 23.47 mls/ hr 1X ONCE IV ; Start 11/14/19 at 08:00; Stop 11/14/19 at 18:51; Status DC Fentanyl Citrate 30 ml @ 0 mls/hr CONT PRN IV SEE PROTOCOL Last administered on 11/16/19at 12:15; Start 11/14/19 at 08:15 Propofol 100 ml @ 0 mls/hr CONT PRN IV SEE PROTOCOL; Start 11/14/19 at 08:15 Midazolam HCl 100 ml @ 0 mls/hr CONT PRN IV SEE PROTOCOL Last administered on 11/15/19at 08:36; Start 11/14/19 at 08:15 Meropenem 500 mg/ Sodium Chloride 50 ml @ 100 mls/hr Q6HRS IV Last administered on 11/15/19at 05:29; Start 11/14/19 at 12:00; Stop 11/15/19 at 06:10; Status DC Vancomycin HCl (Vanco Per Pharmacy) 1 each PRN DAILY PRN MC SEE COMMENTS Last administered on 11/17/19at 09:32; Start 11/14/19 at 09:00; Stop 11/18/19 at 08:42; Status DC Metronidazole 100 ml @ 100 mls/hr Q8HRS IV Last administered on 11/18/19at 05:34; Start 11/14/19 at 12:00; Stop 11/18/19 at 08:38; Status DC Micafungin Sodium 100 mg/Dextrose 100 ml @ 100 mls/hr Q24H IV Last administered on 11/18/19at 08:21; Start 11/14/19 at 09:00; Stop 11/18/19 at 08:38; Status DC Metronidazole 100 ml @ 100 mls/hr Q8HRS IV ; Start 11/14/19 at 09:05; Stop 11/14/19 at 13:38; Status DC Vancomycin HCl 2 gm/Sodium Chloride 500 ml @ 250 mls/hr 1X ONCE IV Last administered on 11/14/19at 12:04; Start 11/14/19 at 10:00; Stop 11/14/19 at 11:5 9; Status DC Norepinephrine Bitartrate 8 mg/ Dextrose 258 ml @ 14.841 mls/ hr CONT PRN IV PER PROTOCOL Last administered on 11/16/19at 21:56; Start 11/14/19 at 09:30 Heparin Sodium/ Dextrose 250 ml @ 9.2 mls/hr CONT PRN IV PER PROTOCOL; Start 11/14/19 at 10:00; Stop 11/14/19 at 16:18; Status DC Heparin Sodium (Porcine) (Heparin Sodium) 1,900 unit PRN Q6HRS PRN IV FOR UFH LEVEL LESS THAN 0.2; Start 11/14/19 at 10:00; Stop 11/14/19 at 16:18; Status DC Heparin Sodium (Porcine) (Heparin Sodium) 4,000 unit 1X ONCE IV ; Start 11/14/19 at 10:00; Stop 11/14/19 at 16:18; Status DC Aspirin (Woodrow Aspirin) 325 mg 1X ONCE JT ; Start 11/14/19 at 10:30; Stop 11/14/19 at 16:18; Status DC Sodium Chloride 1,000 ml @ 500 mls/hr Q2H IV Last administered on 11/14/19at 13:31; Start 11/14/19 at 11:30; Stop 11/14/19 at 15:29; Status DC Lidocaine HCl (Buffered Lidocaine 1%) 3 ml STK-MED ONCE .ROUTE ; Start 11/14/19 at 15:06; Stop 11/14/19 at 15:07; Status DC Iohexol (Omnipaque 240 Mg/ml) 50 ml STK-MED ONCE .ROUTE ; Start 11/14/19 at 15:06; Stop 11/14/19 at 15:07; Status DC Lidocaine HCl (Buffered Lidocaine 1%) 6 ml 1X ONCE INJ Last administered on 11/14/19at 16:51; Start 11/14/19 at 16:15; Stop 11/14/19 at 16:16; Status DC Iohexol (Omnipaque 240 Mg/ml) 50 ml 1X ONCE IJ Last administered on 11/14/19at 16:52; Start 11/14/19 at 16:15; Stop 11/14/19 at 16:16; Status DC Iohexol (Omnipaque 240 Mg/ml) 50 ml STK-MED ONCE .ROUTE ; Start 11/14/19 at 16:09; Stop 11/14/19 at 16:09; Status DC Levetiracetam 1000 mg/Dextrose 110 ml @ 440 mls/hr 1X ONCE IV Last administered on 11/14/19at 17:09; Start 11/14/19 at 16:15; Stop 11/14/19 at 16:29; Status DC Levetiracetam 500 mg/Dextrose 105 ml @ 420 mls/hr Q12HR IV Last administered on 11/14/19at 20:55; Start 11/14/19 at 21:00; Stop 11/14/19 at 21:56; Status DC Iohexol (Omnipaque 240 Mg/ml) 50 ml STK-MED ONCE .ROUTE ; Start 11/14/19 at 16:14; Stop 11/14/19 at 16:15; Status DC Vancomycin HCl 1.25 gm/Sodium Chloride 250 ml @ 167 mls/hr Q12H IV Last administered on 11/17/19at 23:39; Start 11/15/19 at 00:01; Stop 11/18/19 at 08:38; Status DC Vancomycin HCl (Vancomycin Trough Level) 1 each 1X ONCE MC Last administered on 11/15/19at 23:30; Start 11/15/19 at 23:30; Stop 11/15/19 at 23:31; Status DC Heparin Sodium/ Sodium Chloride 500 ml @ As Directed STK-MED ONCE .ROUTE ; Start 11/14/19 at 16:41; Stop 11/14/19 at 16:41; Status DC Heparin Sodium/ Sodium Chloride (HEPARIN for ARTERIAL LINE FLUSH) 1,000 unit 1X ONCE IV Last administered on 11/14/19at 16:54; Start 11/14/19 at 17:00; Stop 11/14/19 at 17:01; Status DC Levetiracetam 500 mg/Dextrose 105 ml @ 420 mls/hr 1X ONCE IV Last administered on 11/14/19at 22:02; Start 11/14/19 at 22:30; Stop 11/14/19 at 22:44; Status DC Levetiracetam 1000 mg/Dextrose 110 ml @ 440 mls/hr Q12HR IV Last administered on 11/21/19at 08:24; Start 11/15/19 at 09:00 Valproic Acid 1000 mg/Dextrose 60 ml @ 55 mls/hr 1X ONCE IV Last administered on 11/14/19at 23:01; Start 11/14/19 at 23:00; Stop 11/15/19 at 00:05; Status DC Valproic Acid 500 mg/Dextrose 55 ml @ 55 mls/hr Q8HRS IV Last administered on 11/21/19at 05:54; Start 11/15/19 at 06:00 Acetaminophen (Tylenol) 650 mg PRN Q6HRS PRN PEG MILD PAIN/TEMP > 100.3'F Last administered on 11/15/19at 04:33; Start 11/15/19 at 04:15 Cefepime HCl (Maxipime) 1 gm Q8HRS IVP Last administered on 11/21/19at 05:54; Start 11/15/19 at 07:00 Sodium Bicarbonate (Sodium Bicarb Adult 8.4% Syr) 50 meq 1X ONCE IV Last a dministered on 11/15/19at 10:16; Start 11/15/19 at 10:15; Stop 11/15/19 at 10:16; Status DC Lidocaine HCl (Buffered Lidocaine 1%) 3 ml STK-MED ONCE .ROUTE ; Start 11/15/19 at 12:38; Stop 11/15/19 at 12:38; Status DC Pantoprazole Sodium (PROTONIX VIAL for IV PUSH) 40 mg DAILYAC IVP Last administered on 11/16/19at 07:58; Start 11/16/19 at 07:30; Stop 11/16/19 at 11:59; Status DC Lidocaine HCl (Buffered Lidocaine 1%) 6 ml 1X ONCE INJ Last administered on 11/15/19at 14:15; Start 11/15/19 at 14:15; Stop 11/15/19 at 14:20; Status DC Pantoprazole Sodium (PROTONIX VIAL for IV PUSH) 40 mg BID IVP Last administered on 11/21/19at 08:23; Start 11/16/19 at 21:00 Dextrose (Dextrose 50%-Water Syringe) 25 gm STK-MED ONCE IV ; Start 11/14/19 at 07:30; Stop 11/17/19 at 09:05; Status DC Sodium Chloride 500 ml @ 250 mls/hr 1X ONCE IV Last administered on 11/17/19at 20:42; Start 11/17/19 at 21:00; Stop 11/17/19 at 22:59; Status DC Sodium Chloride 1,000 ml @ 65 mls/hr [id number] IV Last administered on 11/17/19at 23:11; Start 11/17/19 at 22:30; Stop 11/18/19 at 10:30; Status DC Info (Tpn Per Pharmacy) 1 each PRN DAILY PRN MC SEE COMMENTS Last administered on 11/20/19at 12:20; Start 11/18/19 at 19:00 Sodium Chloride 1,000 ml @ 125 mls/hr Q8H IV Last administered on 11/19/19at 06:36; Start 11/18/19 at 22:00; Stop 11/19/19 at 13:59; Status DC Albumin Human 250 ml @ 62.5 mls/hr 1X ONCE IV Last administered on 11/18/19at 22:01; Start 11/18/19 at 22:00; Stop 11/19/19 at 01:59; Status DC Potassium Chloride/Water 100 ml @ 100 mls/hr 1X ONCE IV Last administered on 11/19/19at 08:00; Start 11/19/19 at 08:00; Stop 11/19/19 at 08:59; Status DC Sodium Chloride 90 meq/Potassium Chloride 50 meq/ Potassium Phosphate 13.6 mmol/Magnesium Sulfate 10 meq/ Calcium Gluconate 10 meq/ Multivitamins 10 ml/Chromium/ Copper/Manganese/ Seleni/Zn 1 ml/ Total Parenteral Nutrition/Amino Acids/Dextrose/ Fat Emulsion Intravenous 1,512 ml @ 63 mls/hr TPN CONT IV Last administered on 11/19/19at 22:19; Start 11/19/19 at 22:00; Stop 11/20/19 at 21:59; Status DC Magnesium Sulfate 50 ml @ 25 mls/hr 1X ONCE IV Last administered on 11/19/19at 14:26; Start 11/19/19 at 14:00; Stop 11/19/19 at 15:59; Status DC Potassium Chloride/Water 100 ml @ 100 mls/hr Q1H IV Last administered on 11/19/19at 16:05; Start 11/19/19 at 14:00; Stop 11/19/19 at 15:59; Status DC Linezolid/Dextrose 300 ml @ 300 mls/hr Q12HR IV Last administered on 11/21/19at 08:22; Start 11/20/19 at 09:00 Fluconazole/ Sodium Chloride 100 ml @ 100 mls/hr Q24H IV Last administered on 11/21/19at 08:21; Start 11/20/19 at 08:00 Albumin Human 500 ml @ 125 mls/hr 1X ONCE IV Last administered on 11/20/19at 08:49; Start 11/20/19 at 09:00; Stop 11/20/19 at 12:59; Status DC Potassium Chloride/Water 100 ml @ 100 mls/hr Q1H IV Last administered on 11/20/19at 11:26; Start 11/20/19 at 10:00; Stop 11/20/19 at 11:59; Status DC Sodium Chloride 90 meq/Potassium Chloride 50 meq/ Potassium Acetate 40 meq/Potassium Phosphate 13.6 mmol/Magnesium Sulfate 10 meq/ Calcium Gluconate 10 meq/ Multivitamins 10 ml/Chromium/ Copper/Manganese/ Seleni/Zn 1 ml/ Total Parenteral Nutrition/Amino Acids/Dextrose/ Fat Emulsion Intravenous 1,512 ml @ 63 mls/hr TPN CONT IV Last administered on 11/20/19at 22:00; Start 11/20/19 at 22:00; Stop 11/21/19 at 21:59 Insulin Glargine (Lantus Syringe) 10 unit QHS SQ Last administered on 11/20/19at 20:30; Start 11/20/19 at 21:00 Insulin Human Lispro (HumaLOG) 0-9 UNITS TIDWMEALS SQ ; Start 11/20/19 at 17:00; Stop 11/20/19 at 13:11; Status DC Dextrose (Dextrose 50%-Water Syringe) 12.5 gm PRN Q15MIN PRN IV SEE COMMENTS; Start 11/20/19 at 13:00 Insulin Human Lispro (HumaLOG) 0-9 UNITS Q4HRS SQ Last administered on 11/21/19at 04:29; Start 11/20/19 at 16:00 Insulin Human Lispro (HumaLOG) 9 units 1X ONCE SQ Last administered on 11/20/19at 14:05; Start 11/20/19 at 13:45; Stop 11/20/19 at 13:46; Status DC Potassium Phosphate 13.6 mmol/Sodium Chloride 254.5333 ml @ 127.... Q2H IV Last administered on 11/21/19at 08:23; Start 11/21/19 at 08:00; Stop 11/21/19 at 11:59 Potassium Chloride/Water 100 ml @ 100 mls/hr Q1H IV Last administered on 11/21/19at 08:25; Start 11/21/19 at 09:00; Stop 11/21/19 at 10:59 Sodium Chloride 500 ml @ 50 mls/hr 1X ONCE IV Last administered on 11/21/19at 08:24; Start 11/21/19 at 09:00; Stop 11/21/19 at 18:59 Active Scripts Active Oxycodone Hcl Immed.release (Oxycodone Hcl) 15 Mg Tablet 15 Mg PO PRN Q6HRS PRN 5 Days Reported Remeron (Mirtazapine) 15 Mg Tablet 1 Tab PO QHS Buspirone Hcl 10 Mg Tablet 1 Tab PO BIDACBL Alprazolam 0.5 Mg Tablet 1 Tab PO HS Acetaminophen 500 Mg Tablet 1 Tab PO PRN Q6HRS PRN 15 Days Ferrous Sulfate 325 Mg Tablet 65 Mg PO BID Pantoprazole Sodium (Pantoprazole Sodium) 40 Mg Tablet.dr 40 Mg PO DAILYAC Trazodone Hcl 50 Mg Tablet 1 Tab PO QHS Gabapentin (Gabapentin) 100 Mg Capsule 100 Mg PO TID Vitals/I & O Vital Sign - Last 24 Hours 11/20/19 11/20/19 11/20/196/20 09:00 09:14 10:00 11:00 Pulse 98 92 98 Resp 21 18 18 B/P (MAP) 111/76 (88) 105/72 (83) 107/73 (84) Pulse Ox 99 100 100 97 O2 Delivery Ventilator Ventilator Ventilator Ventilator 11/20/19 11/20/19 11/20/19 11/20/19 11:12 11:50 12:00 12:26 Temp 98.3 98.3 Pulse 90 Resp 16 B/P (MAP) 100/61 (74) Pulse Ox 100 100 100 O2 Delivery Ventilator Mechanical Ventilator Ventilator Ventilator 11/20/19 11/20/19 11/20/19 11/20/19 13:00 14:00 14:40 15:00 Pulse 98 97 98 Resp 18 20 20 B/P (MAP) 99/59 (72) 93/63 (73) 106/72 (83) Pulse Ox 99 100 100 100 O2 Delivery Ventilator Ventilator Ventilator Ventilator 11/20/19 11/20/19 11/20/19 11/20/19 15:56 16:00 17:00 18:00 Temp 97.6 97.6 Pulse 100 101 105 Resp 20 16 16 B/P (MAP) 100/67 (78) 107/80 (89) 96/58 (71) Pulse Ox 100 100 95 O2 Delivery Ventilator Mechanical Ventilator Ventilator Ventilator 11/20/19 11/20/19 11/20/19 11/20/19 18:05 19:00 20:00 20:00 Temp 97.8 97.8 Pulse 102 102 Resp 20 20 B/P (MAP) 90/67 (75) 105/80 (88) Pulse Ox 100 100 100 O2 Delivery Ventilator Ventilator Ventilator Mechanical Ventilator 11/20/19 11/20/19 11/20/19 11/20/19 20:11 21:00 22:00 23:00 Pulse 96 98 107 Resp 20 18 20 B/P (MAP) 98/63 (75) 103/78 (86) 105/71 (82) Pulse Ox 100 100 100 100 O2 Delivery Ventilator Ventilator Ventilator Ventilator 11/20/19 11/20/19 11/20/19 11/21/19 23:53 23:59 23:59 01:00 Temp 98.4 98.4 Pulse 103 104 Resp 22 22 B/P (MAP) 104/79 (87) 102/71 (81) Pulse Ox 100 100 100 O2 Delivery Ventilator Ventilator Mechanical Ventilator Ventilator 11/21/19 11/21/19 11/21/19 11/21/19 02:00 03:00 04:00 04:00 Temp 98.6 98.6 Pulse 98 98 100 Resp 20 18 18 B/P (MAP) 102/74 (83) 94/67 (76) 110/81 (91) Pulse Ox 100 100 100 O2 Delivery Ventilator Ventilator Ventilator Mechanical Ventilator 11/21/19 11/21/19 11/21/19 11/21/19 04:33 05:00 06:00 07:00 Pulse 98 102 99 Resp 20 20 24 B/P (MAP) 113/78 (90) 113/77 (89) 114/75 (88) Pulse Ox 100 100 100 100 O2 Delivery Ventilator Ventilator Ventilator Ventilator 11/21/19 08:21 Pulse Ox 100 O2 Delivery Ventilator Intake and Output 11/20/19 11/20/19 11/21/19 15:00 23:00 07:00 Intake Total 1265 ml 1434 ml 646 ml Output Total 1020 ml 915 ml 1250 ml Balance 245 ml 519 ml -604 ml Justicifation of Admission Dx: Justifications for Admission: Justification of Admission Dx: Yes Comminuty Aquired Pneumonia: Med-High Risk Pt Sepsis: Infection CHRISTOPHER CARL MD Nov 21, 2019 08:39
[2019-11-21 08:48] LABS: BASE EXCESS ABG -6 mmol/L (-3-3); HCO3 ABG 17 mmol/L (21-28); PCO2 ABG 24 mmHg (35-46); PO2 ABG 103 mmHg (75-108); SAT O2 ABG 97 % (92-99)
[2019-11-21 08:50] LABS: FIO2 ABG 30
[2019-11-21] MEDS ORDERED: SODIUM CHLORIDE 3 % 500 ML IV ONE (09:00)
[2019-11-21] MEDS: TPN PER PHARMACY MC PRN (09:48)
--- NOTE | 2019-11-21 09:55 | NUR ---
Pharmacy TPN Dosing Note S: CHRISTOPHER NEWSOME is a 49 year old M Currently receiving Central Continuous TPN started 11/19/19 B:Pertinent PMH: NPO, GI bleed LABS: Sodium: 142 Potassium: 3.1 Chloride: 113 Calcium: 7.2 Corrected Calcium: 9.76 Magnesium: 2.1 CO2: 24 SCr: 0.6 Glucose: 119 Albumin: 0.8 AST: 57 ALT: 46 TPN FORMULA: TPN TYPE: Central Continuous AMINO ACIDS: 90 gm DEXTROSE: 225 gm LIPIDS: 20 gm SODIUM CHLORIDE: 90 mEq SODIUM ACETATE: - mEq SODIUM PHOSPHATE: - mmol POTASSIUM CHLORIDE: 50 mEq POTASSIUM ACETATE: 40 mEq POTASSIUM PHOSPHATE: 20- mmol MAGNESIUM: 10 mEq CALCIUM: 10 mEq INSULIN: units MULTIPLE VITAMIN: 10 ml TRACE ELEMENTS: 1 ml(s) TPN PLAN: 11/20 increase KPhos in TPN R: Change TPN Will monitor electrolytes, glucose, and tolerance to TPN. [facility], 11/21/19 [id number]
[2019-11-21 10:06] LABS: % BANDS 15 % (0-9); % LYMPHS 6 % (24-48); % MONOS 6 % (0-10); % MYELOS 1 % (0-0); % SEGS 72 % (35-66); ANISOCYTOSIS SLIGHT; PLT ESTIMATE DECREASED (ADEQUATE)
--- NOTE | 2019-11-21 11:16 | PDOC ---
Date of Service: DATE: 11/21/19 TIME: 11:11 Objective: Objective: D/w nursing. Reviewed chart - [facility] and [facility] refused transfer. Vital Signs: Vital Signs Date Time Temp Pulse Resp B/P (MAP) Pulse Ox O2 Delivery O2 Flow Rate FiO2 11/21/19 10:00 101 22 108/71 (83) 100 Ventilator 11/21/19 08:00 98.4 98.4 Labs: Laboratory Tests Test 11/20/19 12:55 11/20/19 15:36 11/20/19 20:27 11/21/19 00:00 Glucose (Fingerstick) 304 mg/dL 311 mg/dL 258 mg/dL 226 mg/dL Test 11/21/19 04:27 11/21/19 06:00 11/21/19 08:18 11/21/19 08:30 Glucose (Fingerstick) 157 mg/dL 119 mg/dL White Blood Count 7.4 x10^3/uL Red Blood Count 2.60 x10^6/uL Hemoglobin 7.7 g/dL Hematocrit 23.1 % Mean Corpuscular Volume 89 fL Mean Corpuscular Hemoglobin 30 pg Mean Corpuscular Hemoglobin Concent 33 g/dL Red Cell Distribution Width 18.5 % Platelet Count 102 x10^3/uL Neutrophils (%) (Auto) 86 % Lymphocytes (%) (Auto) 8 % Monocytes (%) (Auto) 7 % Eosinophils (%) (Auto) 0 % Basophils (%) (Auto) 0 % Neutrophils # (Auto) 6.3 x10^3/uL Lymphocytes # (Auto) 0.6 x10^3/uL Monocytes # (Auto) 0.5 x10^3/uL Eosinophils # (Auto) 0.0 x10^3/uL Basophils # (Auto) 0.0 x10^3/uL Segmented Neutrophils % 72 % Band Neutrophils % 15 % Lymphocytes % 6 % Monocytes % 6 % Myelocytes % 1 % Platelet Estimate Decreased Anisocytosis Slight Sodium Level 142 mmol/L Potassium Level 3.1 mmol/L Chloride Level 113 mmol/L Carbon Dioxide Level 24 mmol/L Anion Gap 5 Blood Urea Nitrogen 13 mg/dL Creatinine 0.6 mg/dL Estimated GFR (Cockcroft-Gault) 173.3 Glucose Level 143 mg/dL Calcium Level 7.2 mg/dL Phosphorus Level 1.0 mg/dL Magnesium Level 2.1 mg/dL Triglycerides Level 65 mg/dL O2 Saturation 97 % Arterial Blood pH 7.47 Arterial Blood pCO2 at Patient Temp 24 mmHg Arterial Blood pO2 at Patient Temp 103 mmHg Arterial Blood HCO3 17 mmol/L Arterial Blood Base Excess -6 mmol/L FiO2 30 ORDERED: ANAER/AEROB/GS COMMENTS: PANCREATIC BED ABSCESS FLUID GRAM STAIN Final Final GRAM POSITIVE COCCI:MODERATE SQUAMOUS EPI CELL:RARE PMN (WBCs):FEW Unless otherwise specified, Testing Performed by: [address] [address] For Inquires, the Physician may contact the Microbiology department at [phone] ANAEROBIC-AEROBIC CULTURE Final Final MIXED AEROBIC MARCO on 11/18/19 at 1242 INCLUDING: MANY [ENTEROCOCCUS FAECIUM VRE] FEW [ESCHERICHIA COLI] FEW [KLEBSIELLA OXYTOCA RAOULTELLA] FEW [RADHA ALBICANS] NO ANAEROBIC ORGANISMS ISOLATED on 11/21/19 at 1053 ENTEROCOCCUS FAECIUM VRE ESCHERICHIA COLI KLEBSIELLA OXYTOCA RAOULTELLA RADHA ALBICANS Streptomycin Synergy Screen S Gentamicin Synergy Screen S ANTIMICROBIAL SUSCEPTIBILITY Final Comment POS COMBO TYPE 45 ENTEROCOCCUS FAECIUM VRE ANTIBIOTIC RESULT INTERPRETATION AMPICILLIN >8 R DAPTOMYCIN 4 S ANTIMICROBIAL SUSCEPTIBILITY Final (continued) LINEZOLID <=2 S PENICILLIN 8 S VANCOMYCIN >16 R Unless otherwise specified, Testing Performed by: [address] [address] For Inquires, the Physician may contact the Microbiology department at [phone] PE: GEN: chronically ill LUNGS: vent HEART: RR ABD: rectal tube w/ watery dark red-brown stool NEURO/PSYCH: unresponsive A/P: S/p code, anoxia/CVA, resp failure Pseudocyst s/p drain Anemia Diarrhea/hematochezia/melena, recent C Diff - now negative -- Continue support, other per Dr. Coker. Justicifation of Admission Dx: Justifications for Admission: Justification of Admission Dx: Yes Comminuty Aquired Pneumonia: Med-High Risk Pt Sepsis: Infection PAXTON ALEXANDER Nov 21, 2019 11:15
--- NOTE | 2019-11-21 11:52 | PDOC ---
PULMONARY PROGRESS NOTES DATE: 11/21/19 TIME: 11:50 Subjective S/P cardiac arrest with 3 rounds of CPR and EPI/ bicarb 11/13, intubated, off sedation since 72 hrs. does trigger vent but remains non responsive seizures post arrest suspected brain anoxia/ ct head with ischemic cva Vitals Vital Signs Date Time Temp Pulse Resp B/P (MAP) Pulse Ox O2 Delivery O2 Flow Rate FiO2 11/21/19 11:00 99 20 104/76 (85) 100 Ventilator 11/21/19 08:00 98.4 98.4 Comments unable to obtain intubated HEENT: Other (nc at perrl nose clear orally intubated neck no lad no thyromegaly) Lungs: Other (decreased BLL) Cardiovascular: S1, S2 Abdomen: Other (less distended doft deminished bs) Extremities: Other (2+ edema, less cold left foot) Skin: Warm Labs Laboratory Tests Test 11/19/19 12:42 11/19/19 12:50 11/20/19 00:11 11/20/19 05:45 White Blood Count 16.8 x10^3/uL (4.0-11.0) Red Blood Count 3.14 x10^6/uL (4.30-5.70) Hemoglobin 9.0 g/dL (13.0-17.5) 8.8 g/dL (13.0-17.5) Hematocrit 27.2 % (39.0-53.0) 26.2 % (39.0-53.0) Mean Corpuscular Volume 87 fL (79-100) Mean Corpuscular Hemoglobin 29 pg (25-35) Mean Corpuscular Hemoglobin Concent 33 g/dL (31-37) 34 g/dL (31-37) Red Cell Distribution Width 18.4 % (11.5-14.5) Platelet Count 127 x10^3/uL (140-400) Clostridium difficile Toxin (PCR) Negative (NEGATIVE) Potassium Level 3.1 mmol/L (3.5-5.1) 3.1 mmol/L (3.5-5.1) Glucose (Fingerstick) 143 mg/dL (70-99) Sodium Level 139 mmol/L (136-145) Chloride Level 109 mmol/L (98-107) Carbon Dioxide Level 24 mmol/L (21-32) Anion Gap 6 (6-14) Blood Urea Nitrogen 19 mg/dL (8-26) Creatinine 0.8 mg/dL (0.7-1.3) Estimated GFR (Cockcroft-Gault) 124.3 Glucose Level 230 mg/dL (70-99) Calcium Level 6.8 mg/dL (8.5-10.1) Magnesium Level 2.3 mg/dL (1.8-2.4) Test 11/20/19 06:08 11/20/19 08:00 11/20/19 12:55 11/20/19 15:36 Glucose (Fingerstick) 201 mg/dL (70-99) 304 mg/dL (70-99) 311 mg/dL (70-99) O2 Saturation 97 % (92-99) Arterial Blood pH 7.41 (7.35-7.45) Arterial Blood pCO2 at Patient Temp 33 mmHg (35-46) Arterial Blood pO2 at Patient Temp 93 mmHg (75-108) Arterial Blood HCO3 20 mmol/L (21-28) Arterial Blood Base Excess -4 mmol/L (-3-3) FiO2 30 Test 11/20/19 20:27 11/21/19 00:00 11/21/19 04:27 11/21/19 06:00 Glucose (Fingerstick) 258 mg/dL (70-99) 226 mg/dL (70-99) 157 mg/dL (70-99) White Blood Count 7.4 x10^3/uL (4.0-11.0) Red Blood Count 2.60 x10^6/uL (4.30-5.70) Hemoglobin 7.7 g/dL (13.0-17.5) Hematocrit 23.1 % (39.0-53.0) Mean Corpuscular Volume 89 fL (79-100) Mean Corpuscular Hemoglobin 30 pg (25-35) Mean Corpuscular Hemoglobin Concent 33 g/dL (31-37) Red Cell Distribution Width 18.5 % (11.5-14.5) Platelet Count 102 x10^3/uL (140-400) Neutrophils (%) (Auto) 86 % (31-73) Lymphocytes (%) (Auto) 8 % (24-48) Monocytes (%) (Auto) 7 % (0-9) Eosinophils (%) (Auto) 0 % (0-3) Basophils (%) (Auto) 0 % (0-3) Neutrophils # (Auto) 6.3 x10^3/uL (1.8-7.7) Lymphocytes # (Auto) 0.6 x10^3/uL (1.0-4.8) Monocytes # (Auto) 0.5 x10^3/uL (0.0-1.1) Eosinophils # (Auto) 0.0 x10^3/uL (0.0-0.7) Basophils # (Auto) 0.0 x10^3/uL (0.0-0.2) Segmented Neutrophils % 72 % (35-66) Band Neutrophils % 15 % (0-9) Lymphocytes % 6 % (24-48) Monocytes % 6 % (0-10) Myelocytes % 1 % (0-0) Platelet Estimate Decreased (ADEQUATE) Anisocytosis Slight Sodium Level 142 mmol/L (136-145) Potassium Level 3.1 mmol/L (3.5-5.1) Chloride Level 113 mmol/L (98-107) Carbon Dioxide Level 24 mmol/L (21-32) Anion Gap 5 (6-14) Blood Urea Nitrogen 13 mg/dL (8-26) Creatinine 0.6 mg/dL (0.7-1.3) Estimated GFR (Cockcroft-Gault) 173.3 Glucose Level 143 mg/dL (70-99) Calcium Level 7.2 mg/dL (8.5-10.1) Phosphorus Level 1.0 mg/dL (2.6-4.7) Magnesium Level 2.1 mg/dL (1.8-2.4) Triglycerides Level 65 mg/dL (0-150) Test 11/21/19 08:18 11/21/19 08:30 Glucose (Fingerstick) 119 mg/dL (70-99) O2 Saturation 97 % (92-99) Arterial Blood pH 7.47 (7.35-7.45) Arterial Blood pCO2 at Patient Temp 24 mmHg (35-46) Arterial Blood pO2 at Patient Temp 103 mmHg (75-108) Arterial Blood HCO3 17 mmol/L (21-28) Arterial Blood Base Excess -6 mmol/L (-3-3) FiO2 30 Laboratory Tests Test 11/20/19 12:55 11/20/19 15:36 11/20/19 20:27 11/21/19 00:00 Glucose (Fingerstick) 304 mg/dL (70-99) 311 mg/dL (70-99) 258 mg/dL (70-99) 226 mg/dL (70-99) Test 11/21/19 04:27 11/21/19 06:00 11/21/19 08:18 11/21/19 08:30 Glucose (Fingerstick) 157 mg/dL (70-99) 119 mg/dL (70-99) White Blood Count 7.4 x10^3/uL (4.0-11.0) Red Blood Count 2.60 x10^6/uL (4.30-5.70) Hemoglobin 7.7 g/dL (13.0-17.5) Hematocrit 23.1 % (39.0-53.0) Mean Corpuscular Volume 89 fL (79-100) Mean Corpuscular Hemoglobin 30 pg (25-35) Mean Corpuscular Hemoglobin Concent 33 g/dL (31-37) Red Cell Distribution Width 18.5 % (11.5-14.5) Platelet Count 102 x10^3/uL (140-400) Neutrophils (%) (Auto) 86 % (31-73) Lymphocytes (%) (Auto) 8 % (24-48) Monocytes (%) (Auto) 7 % (0-9) Eosinophils (%) (Auto) 0 % (0-3) Basophils (%) (Auto) 0 % (0-3) Neutrophils # (Auto) 6.3 x10^3/uL (1.8-7.7) Lymphocytes # (Auto) 0.6 x10^3/uL (1.0-4.8) Monocytes # (Auto) 0.5 x10^3/uL (0.0-1.1) Eosinophils # (Auto) 0.0 x10^3/uL (0.0-0.7) Basophils # (Auto) 0.0 x10^3/uL (0.0-0.2) Segmented Neutrophils % 72 % (35-66) Band Neutrophils % 15 % (0-9) Lymphocytes % 6 % (24-48) Monocytes % 6 % (0-10) Myelocytes % 1 % (0-0) Platelet Estimate Decreased (ADEQUATE) Anisocytosis Slight Sodium Level 142 mmol/L (136-145) Potassium Level 3.1 mmol/L (3.5-5.1) Chloride Level 113 mmol/L (98-107) Carbon Dioxide Level 24 mmol/L (21-32) Anion Gap 5 (6-14) Blood Urea Nitrogen 13 mg/dL (8-26) Creatinine 0.6 mg/dL (0.7-1.3) Estimated GFR (Cockcroft-Gault) 173.3 Glucose Level 143 mg/dL (70-99) Calcium Level 7.2 mg/dL (8.5-10.1) Phosphorus Level 1.0 mg/dL (2.6-4.7) Magnesium Level 2.1 mg/dL (1.8-2.4) Triglycerides Level 65 mg/dL (0-150) O2 Saturation 97 % (92-99) Arterial Blood pH 7.47 (7.35-7.45) Arterial Blood pCO2 at Patient Temp 24 mmHg (35-46) Arterial Blood pO2 at Patient Temp 103 mmHg (75-108) Arterial Blood HCO3 17 mmol/L (21-28) Arterial Blood Base Excess -6 mmol/L (-3-3) FiO2 30 Medications Active Scripts Medications Dose Route/Sig Max Daily Dose Days Date Category Remeron (Mirtazapine) 15 Mg Tablet 1 Tab PO QHS 11/01/19 Reported Oxycodone Hcl Immed.release (Oxycodone Hcl) 15 Mg Tablet 15 Mg PO PRN Q6HRS PRN 5 10/31/19 Rx Buspirone Hcl 10 Mg Tablet 1 Tab PO BIDACBL 10/21/19 Reported Alprazolam 0.5 Mg Tablet 1 Tab PO HS 10/16/19 Reported Acetaminophen 500 Mg Tablet 1 Tab PO PRN Q6HRS PRN 15 10/16/19 Reported Ferrous Sulfate 325 Mg Tablet 65 Mg PO BID 10/16/19 Reported Pantoprazole Sodium (Pantoprazole Sodium) 40 Mg Tablet.dr 40 Mg PO DAILYAC 08/15/19 Reported Trazodone Hcl 50 Mg Tablet 1 Tab PO QHS 08/15/19 Reported Gabapentin (Gabapentin) 100 Mg Capsule 100 Mg PO TID 08/15/[address] of abd and pelvis 1. Gas containing fluid collection replacing the pancreas, with an intact of gas extending to the skin surface in the right upper quadrant abdomen. Findings suspicious for an abscess either related to pancreatic necrosis or complication of pancreatectomy. Correlate clinically. 2. Moderate amount of ascites and mesenteric edema with abdominal distention and severe hepatic steatosis. Correlate clinically for any evidence of hypoperfusion injury or ischemia. 3. Foci of gas in the left upper quadrant abdomen are new in the presence of a percutaneous gastrostomy tube. Correlate for any history of recent instrumentation. A contained bowel perforation can yield this appearance. echo reviewed There is moderate concentric left ventricular hypertrophy. The left ventricular systolic function is normal and the ejection fraction is w ithin normal range. The Ejection Fraction is 60-65%. There is normal LV segmental wall motion. The right ventricle is mildly to moderately dilated. MRI 11/19/2019 Impression: 1. There is signal change of the supratentorial parenchyma bilaterally, right greater than left and also of the cerebellum greater on the left as stated, could be related to sequela of various ages of subacute infarction. However sequela of encephalitis is difficult to exclude by imaging especially given signal alteration with cortical involvement of the lateral left temporal lobe which is not associated with diffusion signal change, other consideration sequela of seizure/syncope focus. Critical results were discussed with patient's nurse Whit November 19, 2019 at 1305. 2. There is prominent fluid and thickening of the left mastoid air cells, uncertain sterility. Impression . IMPRESSION: 1.Acute Hypoxic respiratory Failure 2/2 cardiac arrest-- now requiring mechanical ventilation , anoxic brain injury/ acute ischemic CVA 2.S/P Cardiac arrest, ? Etiology. likely septic shock, pancreatic bed adscess, ? Narcotics contribution, acute CVA 3. Suspect Brain anoxia. Not responsive, off sedation. Seizures post arrest.ct head initially neg for SDH 4..Lower extremity edema secondary to lower extremity deep venous thrombosis with no evidence of pulmonary embolism. Risk factor for deep venous thrombosis is immobilization. s/p IVC filter and AC withheld due to anemia and GI bleed. cold left foot. get arterial dopplers 5. The patient with gallstone pancreatitis in May. He is status post exploratory laparotomy with pancreatic necrosectomy, history of gastrostomy tube placement. septic shock on pressors 6. History of respiratory failure, status post tracheostomy and subsequent decannulation. 7. History of hepatitis B. 8. History of renal failure, on hemodialysis in the past and subsequently renal function with return back to normal. 9. Clostridium difficile colitis. 10. Pancreatic Bed Abscess, GI and Surgery following. 11. CT with LLL mass like density related to fluid collection/ pseudo tumor 12. GI Bleeding 13. seizures Plan . continue current vent support, setting reviewed, ABG reviewed, will make adjustments as needed VENT 30%/ PEEP 5, CXR reviewed minimal infiltrates ET in satisfactory position remains unresponsive off sedation, has + cough, spontaneous breathing, and gag-- repeat CT head c/w ischemic CVA, EEG and follow neurology recommendations . MRI CVA vs.encephalitis, plan to transfer to [facility] for continuous EEG s/p drain for Pancreatic Bed Abscess on 11/14 ECHO reviewed and consult to cardiology follow recs ABX per ID follow surgery recs-- S/P J-tube placement with IR on 11/12 Patient with GI bleed . Hb 6.4. heparin dced. s/p IVC filter 11/13.Monitor HGB, s/p prbc 2 units on 11/13, transfuse as needed for HGb less than 7 --- follow GI recommendations GI PPX: protonix to bid dopplers left leg neg Awaiting transfer to [facility] for continuos EEG monitoring per Neuro Discussed with RN and RT d/w family in detail. Total critical care time 30 minutes coordinating care and reviewing diagnostics critically ill TAYA PEREIRA MD Nov 21, 2019 11:52
--- NOTE | 2019-11-21 12:39 | PDOC ---
MAXIMILIANO GREENBERG SQL ARCHITECT 11/21/19 1239: SURGICAL PROGRESS NOTE DATE: 11/21/19 TIME: 12:34 Subjective no changes d/w nursing possible tx to [facility] Vital Signs Vital Signs Date Time Temp Pulse Resp B/P (MAP) Pulse Ox O2 Delivery O2 Flow Rate FiO2 11/21/19 12:10 100 Ventilator 11/21/19 11:59 98.6 104 20 114/82 (93) 98.6 I&O Intake and Output 11/21/19 07:00 Intake Total 3345 ml Output Total 3185 ml Balance 160 ml IV Total 3255 ml Other 90 ml Output Urine Total 1365 ml Stool Total 1600 ml Gastric Drainage Total 200 ml Drainage Total 20 ml PATIENT HAS A LEPE: Yes General: Other (nonresponsive) Abdomen: Other (distended, drainage bilious) Labs Laboratory Tests Test 11/19/19 12:42 11/19/19 12:50 11/20/19 00:11 11/20/19 05:45 White Blood Count 16.8 x10^3/uL (4.0-11.0) Red Blood Count 3.14 x10^6/uL (4.30-5.70) Hemoglobin 9.0 g/dL (13.0-17.5) 8.8 g/dL (13.0-17.5) Hematocrit 27.2 % (39.0-53.0) 26.2 % (39.0-53.0) Mean Corpuscular Volume 87 fL (79-100) Mean Corpuscular Hemoglobin 29 pg (25-35) Mean Corpuscular Hemoglobin Concent 33 g/dL (31-37) 34 g/dL (31-37) Red Cell Distribution Width 18.4 % (11.5-14.5) Platelet Count 127 x10^3/uL (140-400) Clostridium difficile Toxin (PCR) Negative (NEGATIVE) Potassium Level 3.1 mmol/L (3.5-5.1) 3.1 mmol/L (3.5-5.1) Glucose (Fingerstick) 143 mg/dL (70-99) Sodium Level 139 mmol/L (136-145) Chloride Level 109 mmol/L (98-107) Carbon Dioxide Level 24 mmol/L (21-32) Anion Gap 6 (6-14) Blood Urea Nitrogen 19 mg/dL (8-26) Creatinine 0.8 mg/dL (0.7-1.3) Estimated GFR (Cockcroft-Gault) 124.3 Glucose Level 230 mg/dL (70-99) Calcium Level 6.8 mg/dL (8.5-10.1) Magnesium Level 2.3 mg/dL (1.8-2.4) Test 11/20/19 06:08 11/20/19 08:00 11/20/19 12:55 11/20/19 15:36 Glucose (Fingerstick) 201 mg/dL (70-99) 304 mg/dL (70-99) 311 mg/dL (70-99) O2 Saturation 97 % (92-99) Arterial Blood pH 7.41 (7.35-7.45) Arterial Blood pCO2 at Patient Temp 33 mmHg (35-46) Arterial Blood pO2 at Patient Temp 93 mmHg (75-108) Arterial Blood HCO3 20 mmol/L (21-28) Arterial Blood Base Excess -4 mmol/L (-3-3) FiO2 30 Test 11/20/19 20:27 11/21/19 00:00 11/21/19 04:27 11/21/19 06:00 Glucose (Fingerstick) 258 mg/dL (70-99) 226 mg/dL (70-99) 157 mg/dL (70-99) White Blood Count 7.4 x10^3/uL (4.0-11.0) Red Blood Count 2.60 x10^6/uL (4.30-5.70) Hemoglobin 7.7 g/dL (13.0-17.5) Hematocrit 23.1 % (39.0-53.0) Mean Corpuscular Volume 89 fL (79-100) Mean Corpuscular Hemoglobin 30 pg (25-35) Mean Corpuscular Hemoglobin Concent 33 g/dL (31-37) Red Cell Distribution Width 18.5 % (11.5-14.5) Platelet Count 102 x10^3/uL (140-400) Neutrophils (%) (Auto) 86 % (31-73) Lymphocytes (%) (Auto) 8 % (24-48) Monocytes (%) (Auto) 7 % (0-9) Eosinophils (%) (Auto) 0 % (0-3) Basophils (%) (Auto) 0 % (0-3) Neutrophils # (Auto) 6.3 x10^3/uL (1.8-7.7) Lymphocytes # (Auto) 0.6 x10^3/uL (1.0-4.8) Monocytes # (Auto) 0.5 x10^3/uL (0.0-1.1) Eosinophils # (Auto) 0.0 x10^3/uL (0.0-0.7) Basophils # (Auto) 0.0 x10^3/uL (0.0-0.2) Segmented Neutrophils % 72 % (35-66) Band Neutrophils % 15 % (0-9) Lymphocytes % 6 % (24-48) Monocytes % 6 % (0-10) Myelocytes % 1 % (0-0) Platelet Estimate Decreased (ADEQUATE) Anisocytosis Slight Sodium Level 142 mmol/L (136-145) Potassium Level 3.1 mmol/L (3.5-5.1) Chloride Level 113 mmol/L (98-107) Carbon Dioxide Level 24 mmol/L (21-32) Anion Gap 5 (6-14) Blood Urea Nitrogen 13 mg/dL (8-26) Creatinine 0.6 mg/dL (0.7-1.3) Estimated GFR (Cockcroft-Gault) 173.3 Glucose Level 143 mg/dL (70-99) Calcium Level 7.2 mg/dL (8.5-10.1) Phosphorus Level 1.0 mg/dL (2.6-4.7) Magnesium Level 2.1 mg/dL (1.8-2.4) Triglycerides Level 65 mg/dL (0-150) Test 11/21/19 08:18 11/21/19 08:30 11/21/19 11:52 Glucose (Fingerstick) 119 mg/dL (70-99) 140 mg/dL (70-99) O2 Saturation 97 % (92-99) Arterial Blood pH 7.47 (7.35-7.45) Arterial Blood pCO2 at Patient Temp 24 mmHg (35-46) Arterial Blood pO2 at Patient Temp 103 mmHg (75-108) Arterial Blood HCO3 17 mmol/L (21-28) Arterial Blood Base Excess -6 mmol/L (-3-3) FiO2 30 Laboratory Tests Test 11/20/19 12:55 11/20/19 15:36 11/20/19 20:27 11/21/19 00:00 Glucose (Fingerstick) 304 mg/dL (70-99) 311 mg/dL (70-99) 258 mg/dL (70-99) 226 mg/dL (70-99) Test 11/21/19 04:27 11/21/19 06:00 11/21/19 08:18 11/21/19 08:30 Glucose (Fingerstick) 157 mg/dL (70-99) 119 mg/dL (70-99) White Blood Count 7.4 x10^3/uL (4.0-11.0) Red Blood Count 2.60 x10^6/uL (4.30-5.70) Hemoglobin 7.7 g/dL (13.0-17.5) Hematocrit 23.1 % (39.0-53.0) Mean Corpuscular Volume 89 fL (79-100) Mean Corpuscular Hemoglobin 30 pg (25-35) Mean Corpuscular Hemoglobin Concent 33 g/dL (31-37) Red Cell Distribution Width 18.5 % (11.5-14.5) Platelet Count 102 x10^3/uL (140-400) Neutrophils (%) (Auto) 86 % (31-73) Lymphocytes (%) (Auto) 8 % (24-48) Monocytes (%) (Auto) 7 % (0-9) Eosinophils (%) (Auto) 0 % (0-3) Basophils (%) (Auto) 0 % (0-3) Neutrophils # (Auto) 6.3 x10^3/uL (1.8-7.7) Lymphocytes # (Auto) 0.6 x10^3/uL (1.0-4.8) Monocytes # (Auto) 0.5 x10^3/uL (0.0-1.1) Eosinophils # (Auto) 0.0 x10^3/uL (0.0-0.7) Basophils # (Auto) 0.0 x10^3/uL (0.0-0.2) Segmented Neutrophils % 72 % (35-66) Band Neutrophils % 15 % (0-9) Lymphocytes % 6 % (24-48) Monocytes % 6 % (0-10) Myelocytes % 1 % (0-0) Platelet Estimate Decreased (ADEQUATE) Anisocytosis Slight Sodium Level 142 mmol/L (136-145) Potassium Level 3.1 mmol/L (3.5-5.1) Chloride Level 113 mmol/L (98-107) Carbon Dioxide Level 24 mmol/L (21-32) Anion Gap 5 (6-14) Blood Urea Nitrogen 13 mg/dL (8-26) Creatinine 0.6 mg/dL (0.7-1.3) Estimated GFR (Cockcroft-Gault) 173.3 Glucose Level 143 mg/dL (70-99) Calcium Level 7.2 mg/dL (8.5-10.1) Phosphorus Level 1.0 mg/dL (2.6-4.7) Magnesium Level 2.1 mg/dL (1.8-2.4) Triglycerides Level 65 mg/dL (0-150) O2 Saturation 97 % (92-99) Arterial Blood pH 7.47 (7.35-7.45) Arterial Blood pCO2 at Patient Temp 24 mmHg (35-46) Arterial Blood pO2 at Patient Temp 103 mmHg (75-108) Arterial Blood HCO3 17 mmol/L (21-28) Arterial Blood Base Excess -6 mmol/L (-3-3) FiO2 30 Test 11/21/19 11:52 Glucose (Fingerstick) 140 mg/dL (70-99) Problem List supportive measures no surgical recs available over weekend, please call with questions Justicifation of Admission Dx: Justifications for Admission: Justification of Admission Dx: Yes Comminuty Aquired Pneumonia: Med-High Risk Pt Sepsis: Infection KARLA CALL MD 11/21/19 1243: SURGICAL PROGRESS NOTE Assessment/Plan Pt seen and examined. Agree with Ms. Greenberg's note Pt intubated, stable will try some tube feeds cont supportive care. MAXIMILIANO GREENBERG APRN Nov 21, 2019 12:39 KARLA CALL MD Nov 21, 2019 12:43
--- NOTE | 2019-11-21 14:39 | NUR ---
Wound Care Wound care follow up for ostomy bag. Bagis intact with no leakage.WC will follow up next week.
--- NOTE | 2019-11-21 16:20 | NUR ---
SS following for discharge planning. SS reviewed pt chart and discussed with pt RN. Pt remains on the vent at this time. SS contacted [facility] [place], ; fax [phone], and spoke with Reba in the transfer team. They discussed with Dr. Eller at [facility]. SS was notified that no video monitoring beds are available today and requested that floor RN and physician try again tomorrow. Packet, ambulance form, and transfer form on the chart. Pt's RN and pt's family notified. SS will continue to follow for discharge planning.
--- NOTE | 2019-11-21 17:22 | NUR ---
Pt had uneventful day remains on Vent 30% ETT tube secure. CL intact TF started. Still with liq red tinged stool in RT. Afebrile. at bedside. Remains comatose but with eye opening on stimulation but no follw commands. Rt arm was seen coming up to ETTube on several occasiions. Mitt applied. No movement seen on Lt hand,leg or Rt leg. VSS. Workup for [facility] still pending. Nursing is to call [facility] transfer team in AM and check bed status. Transport tentatively set up for [facility] transport( which requested instead of [facility]) if possible. at bedside. Transfer consent signed by . Chart copied and refaxed today by LETICIA.
[2019-11-21] MEDS: INSULIN GLARGINE SYRINGE. SQ SCH (20:30)
[2019-11-21] MEDS ORDERED: TOTAL PARENTERAL NUTRITION IV SCH (22:00)
[2019-11-21] MEDS ORDERED: DEXTROSE 70% IV SCH (22:00)
[2019-11-21] MEDS ORDERED: AMINO ACID IV SCH (22:00)
[2019-11-21] MEDS ORDERED: [UNRECOGNIZED DRUG - OTHER] IV SCH (22:00)
[2019-11-22] VITALS (14 sets, daily range): BP systolic 98–113; BP diastolic 65–78
[2019-11-22] MEDS: INSULIN LISPRO 300 UNITS/3 ML VIAL. SQ SCH ×3 (00:03→07:35)
[2019-11-22] MEDS: CEFEPIME HCL IV Push 1 GM VIAL. IVP SCH (05:58)
[2019-11-22] MEDS: VALPROIC ACID (AS SODIUM SALT) 500 MG in IV DEXTROSE 5% 50 ML IV SCH (05:59)
--- NOTE | 2019-11-22 06:31 | PDOC ---
PULMONARY PROGRESS NOTES DATE: 11/22/19 TIME: 06:29 Subjective S/P cardiac arrest with 3 rounds of CPR and EPI/ bicarb 11/13, intubated, on vent, off sedation moves r arm at times. small ett secretion seizures post arrest suspected brain anoxia/ ct head with ischemic cva Vitals Vital Signs Date Time Temp Pulse Resp B/P (MAP) Pulse Ox O2 Delivery O2 Flow Rate FiO2 11/22/19 06:00 117 24 99/71 (80) 100 Ventilator 11/22/19 04:00 97.8 97.8 Comments unable to obtain intubated HEENT: Other (nc at perrl nose clear orally intubated neck no lad no thyromegaly) Lungs: Other (decreased BLL) Cardiovascular: S1, S2 Abdomen: Soft, Other ( distended soft deminished bs) Extremities: Other (2+ edema, less cold left foot) Skin: Warm Labs Laboratory Tests Test 11/20/19 08:00 11/20/19 12:55 11/20/19 15:36 11/20/19 20:27 O2 Saturation 97 % (92-99) Arterial Blood pH 7.41 (7.35-7.45) Arterial Blood pCO2 at Patient Temp 33 mmHg (35-46) Arterial Blood pO2 at Patient Temp 93 mmHg (75-108) Arterial Blood HCO3 20 mmol/L (21-28) Arterial Blood Base Excess -4 mmol/L (-3-3) FiO2 30 Glucose (Fingerstick) 304 mg/dL (70-99) 311 mg/dL (70-99) 258 mg/dL (70-99) Test 11/21/19 00:00 11/21/19 04:27 11/21/19 06:00 11/21/19 08:18 Glucose (Fingerstick) 226 mg/dL (70-99) 157 mg/dL (70-99) 119 mg/dL (70-99) White Blood Count 7.4 x10^3/uL (4.0-11.0) Red Blood Count 2.60 x10^6/uL (4.30-5.70) Hemoglobin 7.7 g/dL (13.0-17.5) Hematocrit 23.1 % (39.0-53.0) Mean Corpuscular Volume 89 fL (79-100) Mean Corpuscular Hemoglobin 30 pg (25-35) Mean Corpuscular Hemoglobin Concent 33 g/dL (31-37) Red Cell Distribution Width 18.5 % (11.5-14.5) Platelet Count 102 x10^3/uL (140-400) Neutrophils (%) (Auto) 86 % (31-73) Lymphocytes (%) (Auto) 8 % (24-48) Monocytes (%) (Auto) 7 % (0-9) Eosinophils (%) (Auto) 0 % (0-3) Basophils (%) (Auto) 0 % (0-3) Neutrophils # (Auto) 6.3 x10^3/uL (1.8-7.7) Lymphocytes # (Auto) 0.6 x10^3/uL (1.0-4.8) Monocytes # (Auto) 0.5 x10^3/uL (0.0-1.1) Eosinophils # (Auto) 0.0 x10^3/uL (0.0-0.7) Basophils # (Auto) 0.0 x10^3/uL (0.0-0.2) Segmented Neutrophils % 72 % (35-66) Band Neutrophils % 15 % (0-9) Lymphocytes % 6 % (24-48) Monocytes % 6 % (0-10) Myelocytes % 1 % (0-0) Platelet Estimate Decreased (ADEQUATE) Anisocytosis Slight Sodium Level 142 mmol/L (136-145) Potassium Level 3.1 mmol/L (3.5-5.1) Chloride Level 113 mmol/L (98-107) Carbon Dioxide Level 24 mmol/L (21-32) Anion Gap 5 (6-14) Blood Urea Nitrogen 13 mg/dL (8-26) Creatinine 0.6 mg/dL (0.7-1.3) Estimated GFR (Cockcroft-Gault) 173.3 Glucose Level 143 mg/dL (70-99) Calcium Level 7.2 mg/dL (8.5-10.1) Phosphorus Level 1.0 mg/dL (2.6-4.7) Magnesium Level 2.1 mg/dL (1.8-2.4) Triglycerides Level 65 mg/dL (0-150) Test 11/21/19 08:30 11/21/19 11:52 11/21/19 15:26 11/21/19 20:22 O2 Saturation 97 % (92-99) Arterial Blood pH 7.47 (7.35-7.45) Arterial Blood pCO2 at Patient Temp 24 mmHg (35-46) Arterial Blood pO2 at Patient Temp 103 mmHg (75-108) Arterial Blood HCO3 17 mmol/L (21-28) Arterial Blood Base Excess -6 mmol/L (-3-3) FiO2 30 Glucose (Fingerstick) 140 mg/dL (70-99) 164 mg/dL (70-99) 170 mg/dL (70-99) Test 11/22/19 00:01 11/22/19 03:57 Glucose (Fingerstick) 190 mg/dL (70-99) 139 mg/dL (70-99) Laboratory Tests Test 11/21/19 08:18 11/21/19 08:30 11/21/19 11:52 11/21/19 15:26 Glucose (Fingerstick) 119 mg/dL (70-99) 140 mg/dL (70-99) 164 mg/dL (70-99) O2 Saturation 97 % (92-99) Arterial Blood pH 7.47 (7.35-7.45) Arterial Blood pCO2 at Patient Temp 24 mmHg (35-46) Arterial Blood pO2 at Patient Temp 103 mmHg (75-108) Arterial Blood HCO3 17 mmol/L (21-28) Arterial Blood Base Excess -6 mmol/L (-3-3) FiO2 30 Test 11/21/19 20:22 11/22/19 00:01 11/22/19 03:57 Glucose (Fingerstick) 170 mg/dL (70-99) 190 mg/dL (70-99) 139 mg/dL (70-99) Medications Active Scripts Medications Dose Route/Sig Max Daily Dose Days Date Category Remeron (Mirtazapine) 15 Mg Tablet 1 Tab PO QHS 11/01/19 Reported Oxycodone Hcl Immed.release (Oxycodone Hcl) 15 Mg Tablet 15 Mg PO PRN Q6HRS PRN 5 10/31/19 Rx Buspirone Hcl 10 Mg Tablet 1 Tab PO BIDACBL 10/21/19 Reported Alprazolam 0.5 Mg Tablet 1 Tab PO HS 10/16/19 Reported Acetaminophen 500 Mg Tablet 1 Tab PO PRN Q6HRS PRN 15 10/16/19 Reported Ferrous Sulfate 325 Mg Tablet 65 Mg PO BID 10/16/19 Reported Pantoprazole Sodium (Pantoprazole Sodium) 40 Mg Tablet.dr 40 Mg PO DAILYAC 08/15/19 Reported Trazodone Hcl 50 Mg Tablet 1 Tab PO QHS 08/15/19 Reported Gabapentin (Gabapentin) 100 Mg Capsule 100 Mg PO TID 08/15/19 Reported Comments reviewed cxr 1. Low lung volumes with bibasilar opacities, unchanged. 2. Small bilateral pleural effusions, unchanged. ett ok reviewed ct of abd and pelvis 1. Gas containing fluid collection replacing the pancreas, with an intact of gas extending to the skin surface in the right upper quadrant abdomen. Findings suspicious for an abscess either related to pancreatic necrosis or complication of pancreatectomy. Correlate clinically. 2. Moderate amount of ascites and mesenteric edema with abdominal distention and severe hepatic steatosis. Correlate clinically for any evidence of hypoperfusion injury or ischemia. 3. Foci of gas in the left upper quadrant abdomen are new in the presence of a percutaneous gastrostomy tube. Correlate for any history of recent instrumentation. A contained bowel perforation can yield this appearance. echo reviewed There is moderate concentric left ventricular hypertrophy. The left ventricular systolic function is normal and the ejection fraction is within normal range. The Ejection Fraction is 60-65%. There is normal LV segmental wall motion. The right ventricle is mildly to moderately dilated. MRI 11/19/2019 Impression: 1. There is signal change of the supratentorial parenchyma bilaterally, right greater than left and also of the cerebellum greater on the left as stated, could be related to sequela of various ages of subacute infarction. However sequela of encephalitis is difficult to exclude by imaging especially given signal alteration with cortical involvement of the lateral left temporal lobe which is not associated with diffusion signal change, other consideration sequela of seizure/syncope focus. Critical results were discussed with patient's nurse Whit November 19, 2019 at 1305. 2. There is prominent fluid and thickening of the left mastoid air cells, uncertain sterility. Impression . IMPRESSION: 1.Acute Hypoxic respiratory Failure 2/2 cardiac arrest-- now requiring mechanical ventilation , anoxic brain injury/ acute ischemic CVA 2.S/P Cardiac arrest, ? Etiology. likely septic shock, pancreatic bed adscess, ? Narcotics contribution, acute CVA 3. Suspect Brain anoxia. Not responsive, off sedation. Seizures post arrest.ct head initially neg for SDH 4..Lower extremity edema secondary to lower extremity deep venous thrombosis with no evidence of pulmonary embolism. Risk factor for deep venous thrombosis is immobilization. s/p IVC filter and AC withheld due to anemia and GI bleed. cold left foot. get arterial dopplers 5. The patient with gallstone pancreatitis in May. He is status post exploratory laparotomy with pancreatic necrosectomy, history of gastrostomy tube placement. septic shock on pressors 6. History of respiratory failure, status post tracheostomy and subsequent decannulation. 7. History of hepatitis B. 8. History of renal failure, on hemodialysis in the past and subsequently renal function with return back to normal. 9. Clostridium difficile colitis. 10. Pancreatic Bed Abscess, GI and Surgery following. 11. CT with LLL mass like density related to fluid collection/ pseudo tumor 12. GI Bleeding 13. seizures Plan . continue current vent support, setting reviewed, ABG reviewed, will make adjustments as needed VENT 30%/ PEEP 5, CXR reviewed minimal infiltrates ET in satisfactory position move ext at timesspontaneous breathing, repeat CT head c/w ischemic CVA, EEG and follow neurology recommendations . MRI CVA vs.encephalitis, plan to transfer to [facility] for continuous EEG today s/p drain for Pancreatic Bed Abscess on 11/14 ECHO reviewed and consult to cardiology follow recs ABX per ID follow surgery recs-- S/P J-tube placement with IR on 11/12 Patient with GI bleed . Hb 6.4. heparin dced. s/p IVC filter 11/13.Monitor HGB, s/p prbc 2 units on 11/13, transfuse as needed for HGb less than 7 --- follow GI recommendations GI PPX: protonix to bid dopplers left leg neg Awaiting transfer to [facility] for continuos EEG monitoring per Neuro Discussed with RN and RT, dr griffith Total critical care time 30 minutes coordinating care and reviewing diagnostics no overlap critically ill CHRIS TINOCO MD Nov 22, 2019 06:31
[2019-11-22 06:32] LABS: BASO % 0 % (0-3); EOS % 0 % (0-3); HEMATOCRIT 23.7 % (39.0-53.0); HEMOGLOBIN 7.8 g/dL (13.0-17.5); LYMPH # 0.6 x10^3/uL (1.0-4.8); LYMPH % 7 % (24-48); MEAN CORPUSCULAR HEMOGLOBIN 30 pg (25-35); MEAN CORPUSCULAR HGB CONC 33 g/dL (31-37); MEAN CORPUSCULAR VOLUME 90 fL (79-100); MONO # 0.7 x10^3/uL (0.0-1.1); MONO % 8 % (0-9); NEUT # 7.3 x10^3/uL (1.8-7.7); NEUT % 86 % (31-73); PLATELET COUNT 107 x10^3/uL (140-400); RED BLOOD COUNT 2.63 x10^6/uL (4.30-5.70); RED CELL DISTRIBUTION WIDTH 18.7 % (11.5-14.5); WHITE BLOOD COUNT 8.6 x10^3/uL (4.0-11.0)
[2019-11-22 06:34] LABS: CALCIUM 7.1 mg/dL (8.5-10.1); CREATININE 0.5 mg/dL (0.7-1.3); GFR 213.8; PHOSPHORUS 1.1 mg/dL (2.6-4.7); POTASSIUM 3.5 mmol/L (3.5-5.1); PROTHROMBIN TIME PATIENT 19.6 SEC (11.7-14.0)
[2019-11-22] MEDS: MORPHINE SULFATE 4 MG/ML VIAL. IVP PRN ×2 (07:29→13:26)
[2019-11-22] MEDS: FERROUS SULFATE 325 MG TABLET. PO SCH (07:29)
[2019-11-22] MEDS: FLUCONAZOLE 200MG/100ML PREMIX 100 ML IV SCH (07:29)
[2019-11-22] MEDS: PANTOPRAZOLE IV PUSH 40 MG VIAL. IVP SCH (07:29)
[2019-11-22] MEDS: POTASSIUM PHOS,M-BASIC-D-BASIC 13.6 MMOL in IV NORMAL SALINE 250ML 250 ML IV SCH ×2 (08:31→11:11)
--- NOTE | 2019-11-22 08:31 | PDOC ---
Infectious Disease Note Subjective Subjective Remains unresponsive, orally intubated, FiO2 30% No fevers last 24 hours + diarrhea TPN ROS ROS unobtainable due to patient's condition Vital Sign Vital Signs Vital Signs Date Time Temp Pulse Resp B/P (MAP) Pulse Ox O2 Delivery O2 Flow Rate FiO2 11/22/19 07:29 20 100 Ventilator 11/22/19 07:00 123 107/76 (86) 11/22/19 04:00 97.8 97.8 Physical Exam PHYSICAL EXAM GENERAL: Orally intabeated, cachectic male, + mitts HEENT: PERRL, ETT and OGT in place NECK: Supple, no lymphadenopathy. LUNGS: Clear to auscultation HEART: S1, S2. regular ABDOMEN: Distended, bowel sounds present, taunt, + EC fistula, J-tube, LUQ drain and rectal tube. : Scrotal edema, [place] in place EXTREMITIES: 3+ edema lower extremities, bilaterally. RLE IO - old site clean DERMATOLOGIC: Warm, dry. 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 NEUROLOGIC: unresponsive to verbal and tactile stimuli RI (11/13) without signs of generalized rash. Labs Lab Laboratory Tests Test 11/21/19 08:18 11/21/19 08:30 11/21/19 11:52 11/21/19 15:26 Glucose (Fingerstick) 119 mg/dL (70-99) 140 mg/dL (70-99) 164 mg/dL (70-99) O2 Saturation 97 % (92-99) Arterial Blood pH 7.47 (7.35-7.45) Arterial Blood pCO2 at Patient Temp 24 mmHg (35-46) Arterial Blood pO2 at Patient Temp 103 mmHg (75-108) Arterial Blood HCO3 17 mmol/L (21-28) Arterial Blood Base Excess -6 mmol/L (-3-3) FiO2 30 Test 11/21/19 20:22 11/22/19 00:01 11/22/19 03:57 11/22/19 06:00 Glucose (Fingerstick) 170 mg/dL (70-99) 190 mg/dL (70-99) 139 mg/dL (70-99) White Blood Count 8.6 x10^3/uL (4.0-11.0) Red Blood Count 2.63 x10^6/uL (4.30-5.70) Hemoglobin 7.8 g/dL (13.0-17.5) Hematocrit 23.7 % (39.0-53.0) Mean Corpuscular Volume 90 fL (79-100) Mean Corpuscular Hemoglobin 30 pg (25-35) Mean Corpuscular Hemoglobin Concent 33 g/dL (31-37) Red Cell Distribution Width 18.7 % (11.5-14.5) Platelet Count 107 x10^3/uL (140-400) Neutrophils (%) (Auto) 86 % (31-73) Lymphocytes (%) (Auto) 7 % (24-48) Monocytes (%) (Auto) 8 % (0-9) Eosinophils (%) (Auto) 0 % (0-3) Basophils (%) (Auto) 0 % (0-3) Neutrophils # (Auto) 7.3 x10^3/uL (1.8-7.7) Lymphocytes # (Auto) 0.6 x10^3/uL (1.0-4.8) Monocytes # (Auto) 0.7 x10^3/uL (0.0-1.1) Eosinophils # (Auto) 0.0 x10^3/uL (0.0-0.7) Basophils # (Auto) 0.0 x10^3/uL (0.0-0.2) Prothrombin Time 19.6 SEC (11.7-14.0) Prothromb Time International Ratio 1.7 (0.8-1.1) Fibrinogen 264 mg/dL (200-440) Sodium Level 143 mmol/L (136-145) Potassium Level 3.5 mmol/L (3.5-5.1) Chloride Level 113 mmol/L (98-107) Carbon Dioxide Level 24 mmol/L (21-32) Anion Gap 6 (6-14) Blood Urea Nitrogen 12 mg/dL (8-26) Creatinine 0.5 mg/dL (0.7-1.3) Estimated GFR (Cockcroft-Gault) 213.8 Glucose Level 136 mg/dL (70-99) Calcium Level 7.1 mg/dL (8.5-10.1) Phosphorus Level 1.1 mg/dL (2.6-4.7) Magnesium Level 2.0 mg/dL (1.8-2.4) Test 11/22/19 07:34 Glucose (Fingerstick) 130 mg/dL (70-99) Micro 11/13.RESPIRATORY CULTURE Final ANTIMICROBIAL SUSCEPTIBILITY Final NEG CARINE 56 CITROBACTER FREUNDI ANTIBIOTIC RESULT INTERPRETATION AMPICILLIN/SULBACTAM 16/8 R* AMIKACIN <=16 S AMPICILLIN >16 R AMOXICILLIN/K CLAVULANATE >16/8 R AZTREONAM <=4 S CEFTRIAXONE <=1 S CEFTAZIDIME <=1 S CEFOTAXIME <=2 S CEFOXITIN >16 R CIPROFLOXACIN <=0.25 S CEFEPIME <=2 S CEFUROXIME 16 R* CEFTAZIDIME/AVIBACTAM <=4 S ERTAPENEM <=0.5 S GENTAMICIN <=2 S LEVOFLOXACIN <=0.5 S MEROPENEM <=1 S PIPERACILLIN/TAZOBACTAM <=8 S TRIMETHOPRIM/SULFAMETHOXAZOLE <=0.5/9.5 S TETRACYCLINE <=4 S TOBRAMYCIN <=2 S NEG CARINE 56 KLEBSIELLA OXYTOCA RAOULTELLA ANTIBIOTIC RESULT INTERPRETATION AMPICILLIN/SULBACTAM 16/8 I AMIKACIN <=16 S AMPICILLIN >16 R AMOXICILLIN/K CLAVULANATE <=8/4 S AZTREONAM <=4 S CEFTRIAXONE <=1 S CEFTAZIDIME <=1 S CEFOTAXIME <=2 S CEFOXITIN <=8 S CIPROFLOXACIN <=0.25 S CEFEPIME <=2 S CEFUROXIME >16 R ERTAPENEM <=0.5 S GENTAMICIN <=2 S LEVOFLOXACIN <=0.5 S MEROPENEM <=1 S PIPERACILLIN/TAZOBACTAM <=8 S TRIMETHOPRIM/SULFAMETHOXAZOLE <=0.5/9.5 S TETRACYCLINE 8 I TOBRAMYCIN <=2 S 8/1. Pancreatic abscess ANAEROBIC-AEROBIC CULTURE Final Final MIXED AEROBIC MARCO on 11/18/19 at 1242 INCLUDING: MANY [ENTEROCOCCUS FAECIUM VRE] FEW [ESCHERICHIA COLI] FEW [KLEBSIELLA OXYTOCA RAOULTELLA] FEW [RADHA ALBICANS] NO ANAEROBIC ORGANISMS ISOLATED on 11/21/19 at 1053 Streptomycin Synergy Screen S Gentamicin Synergy Screen S ANTIMICROBIAL SUSCEPTIBILITY Final POS COMBO TYPE 45 ENTEROCOCCUS FAECIUM VRE ANTIBIOTIC RESULT INTERPRETATION AMPICILLIN >8 R DAPTOMYCIN 4 S LINEZOLID <=2 S PENICILLIN 8 S VANCOMYCIN >16 R Unless otherwise specified, Testing Performed by: [address] [place] [address] For Inquires, the Physician may contact the Microbiology department at [phone] Objective Assessment Citrobacter and Klebsiella bacteremia with sepsis, 11/13 Kleb and Citrobacteri in sputum, 11/13 Leukocytosis - improved Clostridium difficile colitis 10/22. neg 11/18 Pancreatic bed abscess s/p drainage 11/14,,,VRE, E. coli, Klebsiella, CALBS. s/p seizures 11/13 PEA cardiac arrest Anoxic brain injury Right CVA Acute hypoxic resp failure s/p intubation ? Loculated LL effusion on CT 11/12 s/p GJ tube replaced with J-tube on 11/12 Bilateral lower extremity deep venous thrombosis 11/06 History of severe pancreatitis, status post exploratory laparotomy with pancreatic necrosectomy, cholecystotomy tube placement, gastrostomy tube placement, tracheostomy placement, five drains. Ascitic fluid drained status post tracheostomy recovered, history of hepatitis B during last admission in 07/2019. Severe protein malnutrition s/p IVC (actually in iliac) 11/13 Elevated Troponin Plan Plan of Care Awaiting transfer to [facility] for continuous EEG monitoring. Continue Zyvox, cefepime and fluconazole and po vancomycin Cefepime can cause seizure. Other option is meropenem, however more likely to exacerbate seizure. Hence not much option ( citrobacter in blood ) Follow-up cultures from 11/14. susceptibilities are still pending Monitor lab values and temp Maintain aspiration precautions Contact isolation for C. difficile Discussed with nursing and Dr. Barrios Critically ill Prognosis is poor Attending Co-Sign The patient was seen and interviewed as well as examined at the bedside. The chart was reviewed. The case was discussed. Agree with the plan of care. TANVI GORE APRN Nov 22, 2019 08:31 KRISTIAN GOODMAN MD Nov 22, 2019 12:33
[2019-11-22] MEDS: VANCOMYCIN 125 MG/2.5 ML ORAL SOLUTION. PO SCH (08:33)
[2019-11-22] MEDS: levETIRAcetam 1,000 MG in IV DEXTROSE 5% 100ML 100 ML IV SCH (08:33)
[2019-11-22 08:34] LABS: BASE EXCESS ABG -3 mmol/L (-3-3); HCO3 ABG 21 mmol/L (21-28); PCO2 ABG 31 mmHg (35-46); PO2 ABG 116 mmHg (75-108); SAT O2 ABG 98 % (92-99)
[2019-11-22 08:38] LABS: FIO2 ABG 30
--- NOTE | 2019-11-22 09:13 | PDOC ---
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 Sepsis, present on admission - 2/2 c difficile. Acute Hypoxic respiratory Failure 2/2 cardiac arrest-- now requiring mechanical ventilation S/P Cardiac arrest unknown etiology Possible seizures Acute GI bleed, unknown source suspect C. difficile colitis possible ischemic colitis Status post CT-guided abscess drain placement 11/15/2019 Bilateral DVT Neutropenia and bandemia, recent C. diff infection Toxic encephalopathy secondary to medication, currently resolved C. diff Diarrhea H/o recent Severe pancreatitis s/p ex-lap with pancreatic necrosectomy, cholecystostomy tube placement, gastrostomy tube placement, tracheostomy placeme nt, 5 drains, 1.5L ascites drained - likely gallstone Status post tracheostomy - reversed, recovered Severe protein calorie malnutrition - started G-tube feeds History of Hepatitis B J tube replaced by IR during last hospitalization but tolerating TFs at night well. Hypokalemia GNR bactermia 11/13 ID FINAL ID= [[email or web address] [id number]] KLEBSIELLA OXYTOCA RAOULTELLA Pancreatic bed abscess - MIXED AEROBIC MARCO on 11/18/19 at 1242 INCLUDING: MANY [ENTEROCOCCUS FAECIUM VRE] FEW [ESCHERICHIA COLI] FEW [KLEBSIELLA OXYTOCA RAOULTELLA] FEW [RADHA ALBICANS] ENTEROCOCCUS FAECIUM VRE ESCHERICHIA COLI KLEBSIELLA OXYTOCA RAOULTELLA RADHA ALBICANS Streptomycin Synergy Screen S Gentamicin Synergy Screen S Patient is intubated and sedated Full code Discussed with RN and LETICIA Dispo surgery is contraindicated at this time, family requests neuro ICU transfer Surrogate decision maker is Deacon Mata phone: [phone] Total critical care time spent is 45 minutes History of Present Illness History of Present Illness Mr Mata is a 49-year-old with past medical history of GERD pancreatitis history of DVT who came to the emergency department complaining of bilateral leg swelling. Doppler ultrasound revealing bilateral DVTs. Apparently the patient had been on Coumadin before it is unclear at this point if the patient has been taking Coumadin prior to this visit to the emergency department. Patient denies any headaches no blurred vision no strokelike symptoms no chest pain palpitations no shortness of breath has been reported. Patient denies abdominal pain no nausea vomiting or diarrhea. The patient certainly complains of discomfort over his bilateral extremities due to the edema. 11/08: Patient with recent admission to the hospital for C. difficile and still having diarrhea he had a significant bandemia which could be a consequence of ongoing C. difficile infection. 11/11: Ostomy in RUQ and PEG tube in LUQ, In bed, in NAD, eating breakfast PO, Complaining of abdominal pain and insomnia 11/12: Discussed with via phone call 11/13: Patient is sedated and intubated. S/P cardiac arrest with 3 rounds of CPR and EPI/ bicarb, transferred to ICU. 11/14: Patient did have large volume lower GI bleed with about 300 cc. Status p ost 2 units PRBCs. Patient's chart, labs, images were reviewed and discussed with RN 11/15: Patient seen and examined at bedside. Patient continues to have rectal bleeding with clots. 11/16: Seen and examined. Afebrile. intubated, continues to have bloody stools. On levophed. Not awakening off sedation. CT head concerning for acute CVA. EEG with PLEDs 11/17: Off sedation for 48 hours. Still with gag, not opening eyes. Significant stool output. WBC 20 K, Hb stable > 7. Cr improved. 11/18: Off sedation 72 hours, no active response, gag positive. Significant stool output, WBC 17, Hb 7 from 8.5 yesterday, K3.1. Discussed findings of EEG with neurology MRI: 1. There is signal change of the supratentorial parenchyma bilaterally, right greater than left and also of the cerebellum greater on the left as stated, could be related to sequela of various ages of subacute infarction. However sequela of encephalitis is difficult to exclude by imaging especially given signal alteration with cortical involvement of the lateral left temporal lobe which is not associated with diffusion signal change, other consideration sequela of seizure/syncope focus. 2. There is prominent fluid and thickening of the left mastoid air cells, uncertain sterility. PLEDs on repeat EEG 11/19: Afebrile. Does not open eyes to painful stimuli, still does have gag with suctioning. Respirations without vent support are more irregular today. K3.1. Hb 8.8. ABG 7.41//. I discussed the findings of the EEG and MRI is consistent with a large frontal parietal CVA likely from the PLEDs secondary to this. I did discuss the less likely possibility of epileptiform activity, though patient has no history of seizures. They have requested second opinion from a facility where neuro critical care is available as we do not have the service at [facility]. 11/20: Afebrile. Withdraws to painful stimuli. Breathing 24 /minute, not a wakening, does not move limbs. K 3.1, Phos 1. Hb 7.7. Some blood in rectal tube overnight. Afebrile overnight. Seen on Vent AC mode 16/min, TV 450, FiO2 30%, PEEP 5. Opening eyes. Right hand twitching noted. Spontaneous movements of right arm and right leg today. Labs significant for WBC 8.6, Hb 7.8, platelets 107, INR 1.7, NA 143, K3.5 chloride 113, HCO3 24, BUN 12, CR 0.5, glucose 136, calcium 7.1, Phos 1.1, mag 2. ABG 7.44/31/116. TPN infusing. Plan: Off pressors Monitor Hb daily IV potassium and phos replacement Patient family has requested transfer to facility with continuous EEG monitoring and neuro-ICU capability given the MRI findings and EEG possibility of seizure activity Vitals/I&O Vitals/I&O: Vital Signs Date Time Temp Pulse Resp B/P (MAP) Pulse Ox O2 Delivery O2 Flow Rate FiO2 11/22/19 08:17 99 Ventilator 11/22/19 08:00 97.8 117 19 113/78 (90) 97.8 I & O 11/21/19 11/21/19 11/22/19 15:00 23:00 07:00 Intake Total 914 ml 1326 ml 1346 ml Output Total 1015 ml 726 ml 905 ml Balance -101 ml 600 ml 441 ml Physical Exam Physical Exam: GENERAL: Orally intabeated, cachectic male, + mitts HEENT: PERRL, ETT and OGT in place NECK: Supple, no lymphadenopathy. LUNGS: Clear to auscultation HEART: S1, S2. regular ABDOMEN: Distended, bowel sounds present, taunt, + EC fistula, J-tube, LUQ drain and rectal tube. : Scrotal edema, [place] in place EXTREMITIES: 3+ edema lower extremities, bilaterally. RLE IO - old site clean DERMATOLOGIC: Warm, dry. 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 NEUROLOGIC: unresponsive to verbal and tactile stimuli RIJ (11/13) without signs of generalized rash. General: Other (nonresponsive) Heart: Regular rate (sinus tach) Lungs: Other (decreased BLL) Abdomen: Other (distended, drainage bilious) Extremities: No cyanosis Skin: No rashes, No significant lesion Labs Labs: Laboratory Tests Test 11/21/19 11:52 11/21/19 15:26 11/21/19 20:22 11/22/19 00:01 Glucose (Fingerstick) 140 mg/dL (70-99) 164 mg/dL (70-99) 170 mg/dL (70-99) 190 mg/dL (70-99) Test 11/22/19 03:57 11/22/19 06:00 11/22/19 07:34 11/22/19 08:30 Glucose (Fingerstick) 139 mg/dL (70-99) 130 mg/dL (70-99) White Blood Count 8.6 x10^3/uL (4.0-11.0) Red Blood Count 2.63 x10^6/uL (4.30-5.70) Hemoglobin 7.8 g/dL (13.0-17.5) Hematocrit 23.7 % (39.0-53.0) Mean Corpuscular Volume 90 fL (79-100) Mean Corpuscular Hemoglobin 30 pg (25-35) Mean Corpuscular Hemoglobin Concent 33 g/dL (31-37) Red Cell Distribution Width 18.7 % (11.5-14.5) Platelet Count 107 x10^3/uL (140-400) Neutrophils (%) (Auto) 86 % (31-73) Lymphocytes (%) (Auto) 7 % (24-48) Monocytes (%) (Auto) 8 % (0-9) Eosinophils (%) (Auto) 0 % (0-3) Basophils (%) (Auto) 0 % (0-3) Neutrophils # (Auto) 7.3 x10^3/uL (1.8-7.7) Lymphocytes # (Auto) 0.6 x10^3/uL (1.0-4.8) Monocytes # (Auto) 0.7 x10^3/uL (0.0-1.1) Eosinophils # (Auto) 0.0 x10^3/uL (0.0-0.7) Basophils # (Auto) 0.0 x10^3/uL (0.0-0.2) Prothrombin Time 19.6 SEC (11.7-14.0) Prothromb Time International Ratio 1.7 (0.8-1.1) Fibrinogen 264 mg/dL (200-440) Sodium Level 143 mmol/L (136-145) Potassium Level 3.5 mmol/L (3.5-5.1) Chloride Level 113 mmol/L (98-107) Carbon Dioxide Level 24 mmol/L (21-32) Anion Gap 6 (6-14) Blood Urea Nitrogen 12 mg/dL (8-26) Creatinine 0.5 mg/dL (0.7-1.3) Estimated GFR (Cockcroft-Gault) 213.8 Glucose Level 136 mg/dL (70-99) Calcium Level 7.1 mg/dL (8.5-10.1) Phosphorus Level 1.1 mg/dL (2.6-4.7) Magnesium Level 2.0 mg/dL (1.8-2.4) O2 Saturation 98 % (92-99) Arterial Blood pH 7.44 (7.35-7.45) Arterial Blood pCO2 at Patient Temp 31 mmHg (35-46) Arterial Blood pO2 at Patient Temp 116 mmHg (75-108) Arterial Blood HCO3 21 mmol/L (21-28) Arterial Blood Base Excess -3 mmol/L (-3-3) FiO2 30 Comment Review of Relevant I have reviewed the following items alexandra (where applicable) has been applied. Medications: Current Medications Medications (Trade) Dose Ordered Sig/Jesse Route PRN Reason Start Time Stop Time Status Last Admin Dose Admin Potassium Chloride/Water 100 ml @ 100 mls/hr Q1H IV 11/21/19 09:00 11/21/19 10:59 DC 11/21/19 10:35 Sodium Chloride 500 ml @ 50 mls/hr 1X ONCE IV 11/21/19 09:00 11/21/19 18:59 DC 11/21/19 08:24 Sodium Chloride 90 meq/Potassium Chloride 50 meq/ Potassium Acetate 40 meq/Potassium Phosphate 20 mmol/ Magnesium Sulfate 10 meq/Calcium Gluconate 10 meq/ Multivitamins 10 ml/Chromium/ Copper/Manganese/ Seleni/Zn 1 ml/ Total Parenteral Nutrition/Amino Acids/Dextrose/ Fat Emulsion Intravenous 1,512 ml @ 63 mls/hr TPN CONT IV 11/21/19 22:00 11/22/19 21:59 11/21/19 21:16 Potassium Phosphate 13.6 mmol/Sodium Chloride 254.5333 ml @ 127.... Q2H IV 11/22/19 10:00 11/22/19 13:59 11/22/19 08:31 Justicifation of Admission Dx: Justifications for Admission: Justification of Admission Dx: Yes Comminuty Aquired Pneumonia: Med-High Risk Pt Sepsis: Infection JUAN ANTONIO OWUSU MD Nov 22, 2019 09:13
--- NOTE | 2019-11-22 09:30 | NUR ---
Report called to Perla ONEILL at [facility] on the comfort neuro ICU.
[2019-11-22] MEDS ORDERED: POTASSIUM PHOS,M-BASIC-D-BASIC 13.6 MMOL in IV NORMAL SALINE 250ML 250 ML IV ONE (10:00)
--- NOTE | 2019-11-22 10:01 | PDOC3 ---
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 Sepsis, present on admission - 2/2 c difficile and bacteremia Acute Hypoxic respiratory Failure 2/2 cardiac arrest-- now requiring mechanical ventilation S/P Cardiac arrest unknown etiology Possible seizures Acute GI bleed, unknown source suspect C. difficile colitis possible ischemic colitis Status post CT-guided abscess drain placement 11/15/2019 Bilateral DVT Diarrhea H/o recent Severe pancreatitis s/p ex-lap with pancreatic necrosectomy, cholecystostomy tube placement, gastrostomy tube placement, tracheostomy placement, 5 drains, 1.5L ascites drained - likely gallstone Status post tracheostomy - reversed, back on vent Severe protein calorie malnutrition - started G-tube feeds History of Hepatitis B J tube replaced by IR during last hospitalization but tolerating TFs at night well. Hypokalemia GNR bactermia 11/13 ID FINAL ID= [CITROBACTER FREUNDI] KLEBSIELLA OXYTOCA RAOULTELLA Pancreatic bed abscess - MIXED AEROBIC MARCO on 11/18/19 at 1242 INCLUDING: MANY [ENTEROCOCCUS FAECIUM VRE] FEW [ESCHERICHIA COLI] FEW [KLEBSIELLA OXYTOCA RAOULTELLA] FEW [RADHA ALBICANS] ENTEROCOCCUS FAECIUM VRE ESCHERICHIA COLI KLEBSIELLA OXYTOCA RAOULTELLA RADHA ALBICANS Streptomycin Synergy Screen S Gentamicin Synergy Screen S Citrobacter and Klebsiella bacteremia with sepsis, 11/13 Kleb and Citrobacteri in sputum, 11/13 Leukocytosis - improved Clostridium difficile colitis 10/22. neg 11/18 Pancreatic bed abscess s/p drainage 11/14, VRE, E. coli, Klebsiella, CALBS. s/p seizures 11/13 PEA cardiac arrest Anoxic brain injury Right CVA Acute hypoxic resp failure s/p intubation ? Loculated LL effusion on CT 11/12 s/p GJ tube replaced with J-tube on 11/12 Bilateral lower extremity deep venous thrombosis 11/06 H/o severe pancreatitis, status post exploratory laparotomy with pancreatic necrosectomy, cholecystotomy tube placement, gastrostomy tube placement, tracheostomy placement, five drains. Ascitic fluid drained status post tracheostomy recovered, history of hepatitis B during last admission in 07/2019. Severe protein malnutrition s/p IVC (actually in iliac) 11/13 Elevated Troponin Left lung loculation Brief Hospital Course Allergies Allergies Coded Allergies Type Severity Reaction Last Updated Verified No Known Drug Allergies 01/28/16 No Vital Signs Vital Signs Date Time Temp Pulse Resp B/P (MAP) Pulse Ox O2 Delivery O2 Flow Rate FiO2 11/22/19 08:17 99 Ventilator 11/22/19 08:00 97.8 117 19 113/78 (90) 97.8 Lab Results Laboratory Tests Test 11/20/19 12:55 11/20/19 15:36 11/20/19 20:27 11/21/19 00:00 Glucose (Fingerstick) 304 mg/dL (70-99) 311 mg/dL (70-99) 258 mg/dL (70-99) 226 mg/dL (70-99) Test 11/21/19 04:27 11/21/19 06:00 11/21/19 08:18 11/21/19 08:30 Glucose (Fingerstick) 157 mg/dL (70-99) 119 mg/dL (70-99) White Blood Count 7.4 x10^3/uL (4.0-11.0) Red Blood Count 2.60 x10^6/uL (4.30-5.70) Hemoglobin 7.7 g/dL (13.0-17.5) Hematocrit 23.1 % (39.0-53.0) Mean Corpuscular Volume 89 fL (79-100) Mean Corpuscular Hemoglobin 30 pg (25-35) Mean Corpuscular Hemoglobin Concent 33 g/dL (31-37) Red Cell Distribution Width 18.5 % (11.5-14.5) Platelet Count 102 x10^3/uL (140-400) Neutrophils (%) (Auto) 86 % (31-73) Lymphocytes (%) (Auto) 8 % (24-48) Monocytes (%) (Auto) 7 % (0-9) Eosinophils (%) (Auto) 0 % (0-3) Basophils (%) (Auto) 0 % (0-3) Neutrophils # (Auto) 6.3 x10^3/uL (1.8-7.7) Lymphocytes # (Auto) 0.6 x10^3/uL (1.0-4.8) Monocytes # (Auto) 0.5 x10^3/uL (0.0-1.1) Eosinophils # (Auto) 0.0 x10^3/uL (0.0-0.7) Basophils # (Auto) 0.0 x10^3/uL (0.0-0.2) Segmented Neutrophils % 72 % (35-66) Band Neutrophils % 15 % (0-9) Lymphocytes % 6 % (24-48) Monocytes % 6 % (0-10) Myelocytes % 1 % (0-0) Platelet Estimate Decreased (ADEQUATE) Anisocytosis Slight Sodium Level 142 mmol/L (136-145) Potassium Level 3.1 mmol/L (3.5-5.1) Chloride Level 113 mmol/L (98-107) Carbon Dioxide Level 24 mmol/L (21-32) Anion Gap 5 (6-14) Blood Urea Nitrogen 13 mg/dL (8-26) Creatinine 0.6 mg/dL (0.7-1.3) Estimated GFR (Cockcroft-Gault) 173.3 Glucose Level 143 mg/dL (70-99) Calcium Level 7.2 mg/dL (8.5-10.1) Phosphorus Level 1.0 mg/dL (2.6-4.7) Magnesium Level 2.1 mg/dL (1.8-2.4) Triglycerides Level 65 mg/dL (0-150) O2 Saturation 97 % (92-99) Arterial Blood pH 7.47 (7.35-7.45) Arterial Blood pCO2 at Patient Temp 24 mmHg (35-46) Arterial Blood pO2 at Patient Temp 103 mmHg (75-108) Arterial Blood HCO3 17 mmol/L (21-28) Arterial Blood Base Excess -6 mmol/L (-3-3) FiO2 30 Test 11/21/19 11:52 11/21/19 15:26 11/21/19 20:22 11/22/19 00:01 Glucose (Fingerstick) 140 mg/dL (70-99) 164 mg/dL (70-99) 170 mg/dL (70-99) 190 mg/dL (70-99) Test 11/22/19 03:57 11/22/19 06:00 11/22/19 07:34 11/22/19 08:30 Glucose (Fingerstick) 139 mg/dL (70-99) 130 mg/dL (70-99) White Blood Count 8.6 x10^3/uL (4.0-11.0) Red Blood Count 2.63 x10^6/uL (4.30-5.70) Hemoglobin 7.8 g/dL (13.0-17.5) Hematocrit 23.7 % (39.0-53.0) Mean Corpuscular Volume 90 fL (79-100) Mean Corpuscular Hemoglobin 30 pg (25-35) Mean Corpuscular Hemoglobin Concent 33 g/dL (31-37) Red Cell Distribution Width 18.7 % (11.5-14.5) Platelet Count 107 x10^3/uL (140-400) Neutrophils (%) (Auto) 86 % (31-73) Lymphocytes (%) (Auto) 7 % (24-48) Monocytes (%) (Auto) 8 % (0-9) Eosinophils (%) (Auto) 0 % (0-3) Basophils (%) (Auto) 0 % (0-3) Neutrophils # (Auto) 7.3 x10^3/uL (1.8-7.7) Lymphocytes # (Auto) 0.6 x10^3/uL (1.0-4.8) Monocytes # (Auto) 0.7 x10^3/uL (0.0-1.1) Eosinophils # (Auto) 0.0 x10^3/uL (0.0-0.7) Basophils # (Auto) 0.0 x10^3/uL (0.0-0.2) Prothrombin Time 19.6 SEC (11.7-14.0) Prothromb Time International Ratio 1.7 (0.8-1.1) Fibrinogen 264 mg/dL (200-440) Sodium Level 143 mmol/L (136-145) Potassium Level 3.5 mmol/L (3.5-5.1) Chloride Level 113 mmol/L (98-107) Carbon Dioxide Level 24 mmol/L (21-32) Anion Gap 6 (6-14) Blood Urea Nitrogen 12 mg/dL (8-26) Creatinine 0.5 mg/dL (0.7-1.3) Estimated GFR (Cockcroft-Gault) 213.8 Glucose Level 136 mg/dL (70-99) Calcium Level 7.1 mg/dL (8.5-10.1) Phosphorus Level 1.1 mg/dL (2.6-4.7) Magnesium Level 2.0 mg/dL (1.8-2.4) O2 Saturation 98 % (92-99) Arterial Blood pH 7.44 (7.35-7.45) Arterial Blood pCO2 at Patient Temp 31 mmHg (35-46) Arterial Blood pO2 at Patient Temp 116 mmHg (75-108) Arterial Blood HCO3 21 mmol/L (21-28) Arterial Blood Base Excess -3 mmol/L (-3-3) FiO2 30 Laboratory Tests Test 11/21/19 11:52 11/21/19 15:26 11/21/19 20:22 11/22/19 00:01 Glucose (Fingerstick) 140 mg/dL (70-99) 164 mg/dL (70-99) 170 mg/dL (70-99) 190 mg/dL (70-99) Test 11/22/19 03:57 11/22/19 06:00 11/22/19 07:34 11/22/19 08:30 Glucose (Fingerstick) 139 mg/dL (70-99) 130 mg/dL (70-99) White Blood Count 8.6 x10^3/uL (4.0-11.0) Red Blood Count 2.63 x10^6/uL (4.30-5.70) Hemoglobin 7.8 g/dL (13.0-17.5) Hematocrit 23.7 % (39.0-53.0) Mean Corpuscular Volume 90 fL (79-100) Mean Corpuscular Hemoglobin 30 pg (25-35) Mean Corpuscular Hemoglobin Concent 33 g/dL (31-37) Red Cell Distribution Width 18.7 % (11.5-14.5) Platelet Count 107 x10^3/uL (140-400) Neutrophils (%) (Auto) 86 % (31-73) Lymphocytes (%) (Auto) 7 % (24-48) Monocytes (%) (Auto) 8 % (0-9) Eosinophils (%) (Auto) 0 % (0-3) Basophils (%) (Auto) 0 % (0-3) Neutrophils # (Auto) 7.3 x10^3/uL (1.8-7.7) Lymphocytes # (Auto) 0.6 x10^3/uL (1.0-4.8) Monocytes # (Auto) 0.7 x10^3/uL (0.0-1.1) Eosinophils # (Auto) 0.0 x10^3/uL (0.0-0.7) Basophils # (Auto) 0.0 x10^3/uL (0.0-0.2) Prothrombin Time 19.6 SEC (11.7-14.0) Prothromb Time International Ratio 1.7 (0.8-1.1) Fibrinogen 264 mg/dL (200-440) Sodium Level 143 mmol/L (136-145) Potassium Level 3.5 mmol/L (3.5-5.1) Chloride Level 113 mmol/L (98-107) Carbon Dioxide Level 24 mmol/L (21-32) Anion Gap 6 (6-14) Blood Urea Nitrogen 12 mg/dL (8-26) Creatinine 0.5 mg/dL (0.7-1.3) Estimated GFR (Cockcroft-Gault) 213.8 Glucose Level 136 mg/dL (70-99) Calcium Level 7.1 mg/dL (8.5-10.1) Phosphorus Level 1.1 mg/dL (2.6-4.7) Magnesium Level 2.0 mg/dL (1.8-2.4) O2 Saturation 98 % (92-99) Arterial Blood pH 7.44 (7.35-7.45) Arterial Blood pCO2 at Patient Temp 31 mmHg (35-46) Arterial Blood pO2 at Patient Temp 116 mmHg (75-108) Arterial Blood HCO3 21 mmol/L (21-28) Arterial Blood Base Excess -3 mmol/L (-3-3) FiO2 30 Brief Hospital Course Mr Mata is a 49yo M w/ PMHx pancreatitis s/p ex-lap with pancreatic necrosectomy, gastrostomy tube placement, s/p tracheostomy, hepatitis B who was hospitalized for what was ultimately diagnosed as gallstone pancreatitis 06/11-07/22/2019 [underwent hemodialysis for renal failure, stopped 07/04/2019, on 06/22/2019 is s/p ex-lap with pancreatic necrosectomy, cholecystostomy tube placement, gastrostomy tube placement, 5 drains, 1.5L ascites drained, and s/p tracheostomy at that time] and discharged to [facility] for further recovery. He had been recovering at home with his . Had been off antibiotics since 07/31/2019. He was readmitted 10/21/2019-11/01/2019 for c/o diarrhea and RUQ pain that began on 10/21/2019 found to have left lung fissure small loculation and c. difficile as well as enterocutaneous fistula. He was treated with antibiotic course for pneumonia and discharged with home health on oral vancomycin therapy for c. difficile. He returned to the hospital with his from home on 11/08/2019 complaining of bilateral leg swelling. Doppler ultrasound revealing bilateral DVTs. Labs significant for WBC 17, Hb 8.4, platelets 400, NA 134, K4.5, BUN 19, CR 1, glucose 83, alkaline phosphatase 580, bilirubin 1.2, albumin 1.3, lipase 66. He was initially admitted to [facility] telemetry and started on heparin infusion and transition to Eliquis. 11/12: J-tube replaced per IR. CTPA negative for PE. 11/13: Patient yelled for help and he was then found on the floor unresponsive. Transferred in bed and he was noted with then with cardiopulmonary arrest per RN. He was noted with initially bradycardia then PEA with approximately 6 min of CPR with 3 round of epinephrine to ROSC. He was then intubated and on mechanical vent. There was no mention of any preceding chest pain or SOA at that time. He had significant leukocytosis, 30.5 transferred to ICU. He was noted with large blood on OGT placement and no left arm or leg movement at time of transfer to ICU. CT head negative. IR performed venocavogram revealing diameter of the cava was found to be significantly wider than the markers present on the denial IVC filter sheath. Therefore, bilateral common iliac vein filters were deployed. 11/14: Patient did have large volume lower GI bleed with about 300 cc. Status post 2 units PRBCs. WBC 60.1. IR placed pancreatic bed drain into abscess. 11/15: Continues to have rectal bleeding with clots. 11/16: Seen and examined. Afebrile. intubated, continues to have bloody stools. On levophed. Not awakening off sedation. CT head concerning for acute CVA on right frontal parietal lobe. EEG with PLEDs. Started on 500mg Depakote q 8 hours 11/17: Off sedation for 48 hours. Still with gag, not opening eyes. Significant stool output. WBC 20 K, Hb stable > 7. Cr improved. 11/18: Off sedation 72 hours, no active response, gag positive. Significant stool output, WBC 17, Hb 7 from 8.5 yesterday, K3.1. Transfused 1u PRBC. Repeat c. difficle PCR negative. Discussed findings of EEG with neurology MRI: There is large area of diffusion signal abnormality more superiorly of the right frontal parietal lobes with cortical involvement about 7.9 cm AP by 3.1 m transverse with some associated variable T2 and FLAIR hyperintense signal, some variable iso to slightly hypointense signal on the ADC map. There is also area of somewhat amorphous restricted diffusion centered in the right occipital lobe 4.6 cm in size with cortical involvement, mostly hypointense on ADC map. There are also more defined foci restricted diffusion of the right caudate head and a couple of small more defined foci of the right frontal deep white matter. There is also some subtle restricted diffusion signal change of the left frontal parietal lobes extending near the cortical surface with some variable mild decreased signal on the ADC map. There is also small more defined focus of restricted diffusion of the left frontal operculum. There is focus of increased T2 and FLAIR signal of the lateral left temporal lobe with cortical involvement measuring about 2.3 cm, not associated with significant diffusion signal abnormality. There are some small foci of diffusion signal change of the cerebellum greater on the left although on the left mostly iso to slightly hyperintense on ADC map. There is no midline shift. Ventricular size is within normal limits. There is prominent fluid and thickening left mastoid air cells, mild thickening on the right. There is preservation of the major arterial intracranial flow voids at the skull base although small caliber of the basilar artery flow-void. Cerebellar tonsils are normal in location. There is diffuse decreased signal of the marrow of the nonexpanded clivus which may be due to residual red marrow. There is no significant abnormality of pineal gland or pituitary gland. 1. There is signal change of the supratentorial parenchyma bilaterally, right greater than left and also of the cerebellum greater on the left as stated, could be related to sequela of various ages of subacute infarction. However sequela of encephalitis is difficult to exclude by imaging especially given signal alteration with cortical involvement of the lateral left temporal lobe which is not associated with diffusion signal change, other consideration sequela of seizure/syncope focus. 2. There is prominent fluid and thickening of the left mastoid air cells, uncertain sterility. PLEDs on repeat EEG 11/19: Afebrile. Does not open eyes to painful stimuli, still does have gag with suctioning. Respirations without vent support are more irregular today. K3.1. Hb 8.8. ABG 7.41/33/93. I discussed the findings of the EEG and MRI is consistent with a large frontal parietal CVA likely from the PLEDs secondary to this. I did discuss the less likely possibility of epileptiform activity, though patient has no history of seizures. They have requested second opinion from a facility where neuro critical care is available as we do not have the service at [facility]. 11/20: Afebrile. Withdraws to painful stimuli. Off pressors. Breathing 24 /minute, not awakening, does not move limbs. K 3.1, Phos 1. Hb 7.7. Some blood in rectal tube overnight. 11/21: Afebrile overnight. Seen on Vent AC mode 16/min, TV 450, FiO2 30%, PEEP 5. Opening eyes. Right hand twitching noted. Spontaneous movements of right arm and right leg today. Labs significant for WBC 8.6, Hb 7.8, platelets 107, INR 1.7, NA 143, K3.5 chloride 113, HCO3 24, BUN 12, CR 0.5, glucose 136, calcium 7.1, Phos 1.1, mag 2. ABG 7.44/31/116. TPN infusing. 11/13.RESPIRATORY CULTURE Final ANTIMICROBIAL SUSCEPTIBILITY Final NEG CARINE 56 CITROBACTER FREUNDI ANTIBIOTIC RESULT INTERPRETATION AMPICILLIN/SULBACTAM 29/11 R* AMIKACIN <=16 S AMPICILLIN >16 R AMOXICILLIN/K CLAVULANATE >/8 R AZTREONAM <=4 S CEFTRIAXONE <=1 S CEFTAZIDIME <=1 S CEFOTAXIME <=2 S CEFOXITIN >16 R CIPROFLOXACIN <=0.25 S CEFEPIME <=2 S CEFUROXIME 16 R* CEFTAZIDIME/AVIBACTAM <=4 S ERTAPENEM <=0.5 S GENTAMICIN <=2 S LEVOFLOXACIN <=0.5 S MEROPENEM <=1 S PIPERACILLIN/TAZOBACTAM <=8 S TRIMETHOPRIM/SULFAMETHOXAZOLE <=0.5/9.5 S TETRACYCLINE <=4 S TOBRAMYCIN <=2 S NEG CARINE 56 KLEBSIELLA OXYTOCA RAOULTELLA ANTIBIOTIC RESULT INTERPRETATION AMPICILLIN/SULBACTAM 16/8 I AMIKACIN <=16 S AMPICILLIN >16 R AMOXICILLIN/K CLAVULANATE <=8/4 S AZTREONAM <=4 S CEFTRIAXONE <=1 S CEFTAZIDIME <=1 S CEFOTAXIME <=2 S CEFOXITIN <=8 S CIPROFLOXACIN <=0.25 S CEFEPIME <=2 S CEFUROXIME >16 R ERTAPENEM <=0.5 S GENTAMICIN <=2 S LEVOFLOXACIN <=0.5 S MEROPENEM <=1 S PIPERACILLIN/TAZOBACTAM <=8 S TRIMETHOPRIM/SULFAMETHOXAZOLE <=0.5/9.5 S TETRACYCLINE 8 I TOBRAMYCIN <=2 S 11/14. Pancreatic abscess ANAEROBIC-AEROBIC CULTURE Final Final MIXED AEROBIC MARCO on 11/18/19 at 1242 INCLUDING: MANY [ENTEROCOCCUS FAECIUM VRE] FEW [ESCHERICHIA COLI] FEW [KLEBSIELLA OXYTOCA RAOULTELLA] FEW [RADHA ALBICANS] NO ANAEROBIC ORGANISMS ISOLATED on 11/21/19 at 1053 Streptomycin Synergy Screen S Gentamicin Synergy Screen S ANTIMICROBIAL SUSCEPTIBILITY Final POS COMBO TYPE 45 ENTEROCOCCUS FAECIUM VRE ANTIBIOTIC RESULT INTERPRETATION AMPICILLIN >8 R DAPTOMYCIN 4 S LINEZOLID <=2 S PENICILLIN 8 S VANCOMYCIN >16 R Unless otherwise specified, Testing Performed by: [address] [id number] For Inquires, the Physician may contact the Microbiology department at [phone] Plan: Off pressors Monitor Hb daily Cont TPN, J-tube feeds Maintain ET tube, OGT to drainage IV potassium and phos replacement Continue Zyvox, cefepime and fluconazole and po vancomycin Cefepime can cause seizure. Other option is meropenem, however more likely to exacerbate seizure. Hence not much option ( citrobacter in blood ) Follow-up cultures from 11/14. susceptibilities are still pending Monitor temp Maintain aspiration precautions Contact isolation for C. difficile Patient family has requested transfer to facility with continuous EEG monitoring and neuro-ICU capability given the MRI findings and EEG possibility of seizure activity. I have accommodated - Awaiting transfer to [facility] for continuous EEG monitoring. Full code Discussed with RN and SW as well as ID, Neuro, Pulm, General surgery. I also discussed the case with accepting physicians Drs. Eller and Pilar at [facility] Surrogate decision maker is wiliam Mata phone: [phone] Total critical care time spent is 45 minutes on day of discharge to [facility] Critical Care ICU via ICU medical transport Discharge Information Condition at Discharge: Stable Disposition/Orders: D/C to Another Facility ([facility]) Scheduled Alprazolam (Alprazolam) 0.5 Mg Tablet, 1 TAB PO HS for anxiety, #30 (Reported) Entered as Reported by: EMELY CALDERON on 10/16/19932 Last Action: Continued on 11/08/19728 by BRENDA JONAS MD Buspirone Hcl (Buspirone Hcl) 10 Mg Tablet, 1 TAB PO BIDACBL for anxiety, #60 Ref 1 (Reported) Entered as Reported by: Aneudy Dsouza on 10/21/192343 Last Action: Continued on 11/08/19728 by BRENDA JONAS MD Ferrous Sulfate (Ferrous Sulfate) 325 Mg Tablet, 65 MG PO BID for supplement/anemia, (Reported) Entered as Reported by: EMELY CALDERON on 10/16/19932 Last Action: Continued on 11/08/19728 by BRENDA JONAS MD Gabapentin (Gabapentin ) 100 Mg Capsule, 100 MG PO TID for NEUROGENIC PAIN, (Reported) Entered as Reported by: VERONICA FORD on 08/15/195 Last Action: Continued on 11/08/19728 by BRENDA JONAS MD Mirtazapine (Remeron) 15 Mg Tablet, 1 TAB PO QHS for appetite stimulant, #30 Ref 1 (Reported) Entered as Reported by: ANETTE CARRERA on 11/01/19 1703 Last Action: Continued on 11/08/19728 by BRENDA JONAS MD Pantoprazole Sodium (Pantoprazole Sodium ) 40 Mg Tablet.dr, 40 MG PO DAILYAC for GERD, (Reported) Entered as Reported by: VERONICA FORD on 08/15/19 1106 Last Action: Continued on 11/08/19728 by BRENDA JONAS MD Trazodone Hcl (Trazodone Hcl) 50 Mg Tablet, 1 TAB PO QHS for sleep, #30 Ref 1 (Reported) Entered as Reported by: VERONICA FORD on 08/15/19 1105 Last Action: Continued on 11/08/19728 by BRENDA JONAS MD Scheduled PRN Acetaminophen (Acetaminophen) 500 Mg Tablet, 1 TAB PO PRN Q6HRS PRN for pain or fever for 15 Days, #60 Ref 0 (Reported) Entered as Reported by: EMELY CALDERON on 10/16/19 0933 Last Action: Continued on 11/08/19728 by BRENDA JONAS MD Oxycodone Hcl (Oxycodone Hcl Immed.release) 15 Mg Tablet, 15 MG PO PRN Q6HRS PRN for PAIN for 5 Days, #1 Ref 0 Prescribed by: AZUL MENDEZ MD on 10/31/19 0943 Last Action: Converted on 11/08/19728 by BRENDA JONAS MD Justicifation of Admission Dx: Justifications for Admission: Justification of Admission Dx: Yes Comminuty Aquired Pneumonia: Med-High Risk Pt Sepsis: Infection JUAN ANTONIO OWUSU MD Nov 22, 2019 10:01
[2019-11-22] MEDS ORDERED: Pantoprazole Iv Push IVP (10:08)
[2019-11-22] MEDS ORDERED: LINE600I2 IV (10:08)
[2019-11-22] MEDS ORDERED: Tpn Per Pharmacy MC (10:08)
[2019-11-22] MEDS ORDERED: ACET650S PEG (10:08)
[2019-11-22] MEDS ORDERED: CEFEPIME HCL IVP (10:08)
[2019-11-22] MEDS ORDERED: [UNRECOGNIZED DRUG - CODE] IV (10:08)
[2019-11-22] MEDS ORDERED: VALP500V2 IV (10:08)
[2019-11-22] MEDS ORDERED: VANC500V PO (10:08)
[2019-11-22] MEDS ORDERED: LEVE500V7 IV (10:08)
[2019-11-22] MEDS ORDERED: INSU100V8 SQ (10:08)
[2019-11-22] MEDS ORDERED: SODI20VI3 IV (10:13)
--- NOTE | 2019-11-22 10:14 | SNU/HH DC ---
DISCHARGE ORDERS DISCHARGE INFORMATION: DISCHARGE DATE: Nov 22, 2019 FINAL DIAGNOSIS Bilateral DVTs CONDITION ON DISCHARGE: Guarded CODE STATUS: Code Status: Full POST DISCHARGE ORDERS: ACTIVITY ORDERS: Activity as tolerated WEIGHT BEARING STATUS: As tolerated DIET AFTER DISCHARGE: NPO WOUND/INCISION CARE: Keep wound/cast CDI CHECKS AFTER DISCHARGE: CHECKS AFTER DISCHARGE: Check blood press - daily, Check blood sugar, ac/hs FOLLOW-UP: Additional Instructions: TPN 1512ml at 63 cc/hr TPN TYPE: Central Continuous AMINO ACIDS: 90 gm DEXTROSE: 225 gm LIPIDS: 20 gm SODIUM CHLORIDE: 90 mEq SODIUM ACETATE: - mEq SODIUM PHOSPHATE: - mmol POTASSIUM CHLORIDE: 50 mEq POTASSIUM ACETATE: 40 mEq POTASSIUM PHOSPHATE: 20- mmol MAGNESIUM: 10 mEq CALCIUM: 10 mEq INSULIN: units MULTIPLE VITAMIN: 10 ml TRACE ELEMENTS: 1 ml(s) TREATMENT/EQUIPMENT ORDERS: ADAPTIVE EQUIPMENT NEEDED: None INFUSION EQUIPMENT NEEDED: PICC Line RESPIRATORY EQUIPMENT NEEDED: Oxygen (Vent AC mode 16/min 450ml FiO2 30% PEEP 5) DISCHARGE MEDICATIONS: Home Meds Active Scripts Sodium/K+/Mag/Ca/Chlor/Acetate (TPN ELECTROLYTES VIAL) 20 Ml Vial, 20 ML IV DAILY for Pancreatitis for 30 Days, #30 EACH Prov:JUAN ANTONIO OWUSU MD 11/22/19 [Tpn Per Pharmacy] 1 EACH EACH No Conflict Check, 1 EACH MC PRN DAILY PRN for SEE COMMENTS Prov:JUAN ANTONIO OWUSU MD 11/22/19 Insulin Glargine,Hum.rec.anlog (LANTUS) 100 Unit/1 Ml Vial, 10 UNIT SQ QHS for TPN for 30 Days, #30 EACH Prov:JUAN ANTONIO OWUSU MD 11/22/19 [Pantoprazole Iv Push] 40 MG VIAL No Conflict Check, 40 MG IVP BID for GIB Prov:JUAN ANTONIO OWUSU MD 11/22/19 Valproate Sodium (VALPROATE SODIUM) 500 Mg/5 Ml Vial, 500 MG IV Q8HRS for Seizures for 30 Days, EACH Prov:JUAN ANTONIO OWUSU MD 11/22/19 Levetiracetam (KEPPRA) 500 Mg/5 Ml Vial, 1000 MG IV BID for Seizures for 30 Days, VIAL Prov:JUAN ANTONIO OWUSU MD 11/22/19 Acetaminophen (ACETAMINOPHEN ORAL LIQUID ) 650 Mg/20.3 Ml Solution, 650 MG PEG PRN Q6HRS PRN for MILD PAIN/TEMP > 100.3'F for 30 Days, #30 MISC Prov:JUAN ANTONIO OWUSU MD 11/22/19 Fluconazole In Nacl,Iso-Osm (FLUCONAZOLE-NS 200 MG/100 ML) 200 Mg/100 Ml Pggybk.btl, 200 MG IV DAILY for Fungal infection for 30 Days, EACH Prov:JUAN ANTONIO OWUSU MD 11/22/19 Vancomycin Hcl (VANCOMYCIN HCL) 500 Mg Vial, 125 MG PO [id number] for C diff for 30 Days, #120 EACH Prov:JUAN ANTONIO OWUSU MD 11/22/19 Linezolid (Linezolid-D5w) 600 Mg/300 Ml Piggyback, 600 MG IV Q12HR for Citrobacter for 30 Days, EACH Prov:JUAN ANTONIO OWUSU MD 11/22/19 [CEFEPIME HCL IV Push] 1 GM VIAL No Conflict Check, 1 GM IVP Q8HRS, EACH Prov:JUAN ANTONIO OWUSU MD 11/22/19 Reported Medications Ferrous Sulfate (FERROUS SULFATE) 325 Mg Tablet, 65 MG PO BID for supplement/anemia, TAB 10/16/19 Gabapentin (GABAPENTIN ) 100 Mg Capsule, 100 MG PO TID for NEUROGENIC PAIN, CAP 08/15/19 Discontinued Reported Medications Mirtazapine (REMERON) 15 Mg Tablet, 1 TAB PO QHS for appetite stimulant, #30 TAB 1 Refill 11/01/19 Buspirone Hcl (BUSPIRONE HCL) 10 Mg Tablet, 1 TAB PO BIDACBL for anxiety, #60 TAB 1 Refill 10/21/19 Alprazolam (ALPRAZOLAM) 0.5 Mg Tablet, 1 TAB PO HS for anxiety, #30 TAB 10/16/19 Acetaminophen (ACETAMINOPHEN) 500 Mg Tablet, 1 TAB PO PRN Q6HRS PRN for pain or fever for 15 Days, #60 TAB 0 Refills 10/16/19 Pantoprazole Sodium (PANTOPRAZOLE SODIUM ) 40 Mg Tablet.dr, 40 MG PO DAILYAC for GERD, TAB 08/15/19 Trazodone Hcl (TRAZODONE HCL) 50 Mg Tablet, 1 TAB PO QHS for sleep, #30 TAB 1 Refill 08/15/19 Discontinued Scripts Oxycodone Hcl (OXYCODONE HCL IMMED.RELEASE) 15 Mg Tablet, 15 MG PO PRN Q6HRS PRN for PAIN for 5 Days, #1 TAB 0 Refills Prov:AZUL MENDEZ MD 10/31/19 JUAN ANTONIO OWUSU MD Nov 22, 2019 10:14
--- NOTE | 2019-11-22 13:25 | NUR ---
[facility] ambulance crew here to transport pt to [facility] on the [address]. Family at the bedside and to follow over.
--- NOTE | 2019-11-24 09:26 | RAD ---
November 14, 2019 1. Inferior venacavogram 2. Placement of bilateral common iliac vein filters Discussion: The patient is a 49-year-old male with history of severe pancreatitis, with protracted course involving multiple drains surgical debridement of pancreatic tissue, and DVT a persistent thick collection of gas and fluid is seen in the pancreatic bed. The patient has recently developed upper and lower gastrointestinal hemorrhage of uncertain etiology, with decreasing hemoglobin. Blood thinning medications therefore have been stopped, and a request for IVC filter made. Review of the CT prior to IVC filter placement demonstrated possible compression of the vena cava by the aforementioned pancreatic collection. Abdominal pressures were measured to arrange exclude abdominal compartment syndrome, which were found to be in the normal range. The procedure was explained in its entirety to the patient's /manufacturer's service representative manufacturer's service representative by the performing physician. This included discussion of the risks, benefits and commonly accepted alternatives to the procedure, as well as the expected consequences of no therapy whatsoever. Discussion of the risks included, but was not limited to, those that are most frequent and those that are rare but possibly severe or life-threatening, as well as the possibility of unforeseen complications. All elements of maximal sterile barrier technique including the use of a cap, mask, sterile gown, sterile gloves, large sterile sheet, appropriate hand hygiene, and 2% chlorhexidine for cutaneous antisepsis (or acceptable alternative antiseptic per current guidelines) were followed for this procedure. Ultrasound evaluation demonstrates right internal jugular vein to be patent and compressible. 1% lidocaine was administered for local anesthesia. The right internal jugular vein was accessed using micropuncture technique under direct ultrasound guidance. Reference ultrasound images were saved medical record. A guidewire is advanced to the inferior vena cava followed by a filter delivery sheath. An inferior venacavogram was performed demonstrating appears to be smooth eccentric compression of the medial IVC. Appearance is not typical for thrombus but more suggestive of a compression identified on prior CT scan. There is subsequent dilatation of the more inferior vena cava. The marker bands on the end of the filter delivery sheath, were measured, and found to be significantly more narrow than the diameter of the inferior vena cava. The exact diameter is uncertain based on provided measurements, likely due to calibration error. The radiopaque bands on the filter delivery sheath dilator services a maximum safe diameter for filter deployment. Because of this, and the nature of the compression of the IVC extending to the level of the renal veins and cephalad to this, the decision was made to place bilateral common iliac vein filters. On the right of Alis filter was placed, on the left a option filter was placed. Both filters were well positioned on subsequent venogram. The sheath was removed and manual pressure held without complication. Total fluoroscopy time: 10.5 min Dose area product: 309 Gycm2 Impression: 1. 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 Bilateral common iliac vein filters placed
== END 2019-11-22 13:25 | disposition short-term general hospital (02) | DRG 870 ==
LOC: ER 19:01 → EEVIPCON 11-08 00:54 → 5 NORTH 11-08 00:54 → 1 WEST ICU 11-14 08:21
PROVIDERS: ADMIT Family Medicine; ATTEND Family Medicine
PROC: 5A1955Z Respiratory Ventilation, Greater than 96 Consecutive Hours (ICD-10-PCS; principal; 2019-11-14)
PROC: 30233N1 Transfusion of Nonautologous Red Blood Cells into Peripheral Vein, Percutaneous Approach (ICD-10-PCS; 2019-11-14)
PROC: 0BH17EZ Insertion of Endotracheal Airway into Trachea, Via Natural or Artificial Opening (ICD-10-PCS; 2019-11-14)
DX: A41.9 Sepsis, unspecified organism (principal); E43 Unspecified severe protein-calorie malnutrition; G92 Toxic encephalopathy; I46.9 Cardiac arrest, cause unspecified; I63.9 Cerebral infarction, unspecified; J18.9 Pneumonia, unspecified organism; J96.21 Acute and chronic respiratory failure with hypoxia; R65.21 Severe sepsis with septic shock; A04.72 Enterocolitis due to Clostridium difficile, not specified as recurrent; I82.403 Acute embolism and thrombosis of unspecified deep veins of lower extremity, bilateral; G93.1 Anoxic brain damage, not elsewhere classified; I13.0 Hypertensive heart and chronic kidney disease with heart failure and stage 1 through stage 4 chronic kidney disease, or unspecified chronic kidney disease; J98.11 Atelectasis; K55.9 Vascular disorder of intestine, unspecified; K86.1 Other chronic pancreatitis; N30.01 Acute cystitis with hematuria; R18.8 Other ascites; A41.59 Other Gram-negative sepsis; D64.9 Anemia, unspecified; D70.9 Neutropenia, unspecified; E87.6 Hypokalemia; F17.290 Nicotine dependence, other tobacco product, uncomplicated; G40.901 Epilepsy, unspecified, not intractable, with status epilepticus; G47.00 Insomnia, unspecified; I50.9 Heart failure, unspecified; K76.0 Fatty (change of) liver, not elsewhere classified; K80.20 Calculus of gallbladder without cholecystitis without obstruction; N18.9 Chronic kidney disease, unspecified; T50.905A Adverse effect of unspecified drugs, medicaments and biological substances, initial encounter; Z66 Do not resuscitate; Z86.718 Personal history of other venous thrombosis and embolism; Z93.1 Gastrostomy status; Z95.828 Presence of other vascular implants and grafts; Z99.2 Dependence on renal dialysis; F32.9 Major depressive disorder, single episode, unspecified; K21.9 Gastro-esophageal reflux disease without esophagitis
CPT/HCPCS: 36415; 36556; 36600; 37191; 49406; 49451; 70450; 70551; 71045; 71275; 74018; 74176; 76937; 80048; 80053; 80202; 81001; 82150; 82553; 82805; 82962; 83605; 83690; 83735; 84100; 84132; 84145; 84478; 84484; 85007; 85014; 85018; 85025; 85027; 85384; 85610; 85730; 86850; 86900; 86901; 86920; 87040; 87070; 87071; 87075; 87077; 87086; 87106; 87186; 87205; 87493; 93005; 93306; 93926; 93970; 94002; 94003; 95816; 96372; 99291; C1729; C1769; C1892; C1894; C9113; J0610; J0692; J0696; J1450; J1644; J1650; J1815; J1953; J2020; J2185; J2248; J2250; J2270; J2405; J2543; J3010; J3370; J3475; J3480; J3490; J7030; J7040; J7050; J7060; P9016; P9041; P9045; Q9966; Q9967; 97110-GP; 97116-GP; 97530-GP; 97535-GO; G0378

== ENCOUNTER 2020-08-30 13:55 | Emergency (ER) | payer OTHER ==
[~2020-08-30] VITALS: Ht 175.3 cm; Wt 79.0 kg
[~2020-08-30 13:55] MED LIST changes: +ACET650S PEG; +ALPR0.25 PO; +AMLO-186 PO; +AMLO-187 PO; -AMLO10TA8 PO; -AMLO5TAB10 PO; +BUSP5TAB PEG; +CEFEPIME HCL IVP; +HYDR1SYR IV; +HYDR20VI5 IJ; +INSU100V8 SQ; +KEPPRA; +LACO200V IV; +LEVE500V7 IV; +LINE600I2 IV; +LORA2DIS2 IVP; +METO25TA4 PEG; +MIRT-36 PO; -MIRT15TA PO; +ONDA4TAB7 PEG; +OXYC5TAB88 PEG; +PANTOPRAZOLE PEG; +PROC5VIA2 IVP; +Pantoprazole Iv Push IVP; +SODI20VI3 IV; +TRAZ-118 JT; +Tpn Per Pharmacy MC; +VALP500V2 IV; +VANC500V PO; +VANC50SO3 PO; +[UNRECOGNIZED DRUG - CODE] IV; +[UNRECOGNIZED DRUG - OTHER] PEG
[2020-08-30 15:02] VITALS: BP 117/73
[2020-08-30] MEDS ORDERED: CEPH500T PO (16:19)
--- NOTE | 2020-08-30 16:19 | PHYS DOC ---
Past Medical History Past Medical History: CVA, GERD, Pancreatitis Additional Past Medical Histor: gallstones, FABIOLA, HEP B, resp. failure- intubation/trach Past Surgical History: No Surgical History, Cholecystectomy Additional Past Surgical Histo: trach, exp. laparotomy, gtube, jtube Smoking Status: Former Smoker Alcohol Use: None Drug Use: None General Adult EDM: Chief Complaint: GI PROBLEM HPI: HPI: Patient is a 50 year old male patient presents to the ED today complaining of drainage around his feeding tube site. Patient states the feeding tube came out 3 weeks ago and he has had small amount of drainage but for the last 24 hours he has noted increased yellow drainage. Patient denies any fever. He states he is tolerating oral intake very well. Review of Systems: Review of Systems: Constitutional: Denies fever or chills. [] GI: Reports drainage around the feeding tube site, denies any abdominal pain nausea, vomiting, bloody stools or diarrhea. [] : Denies dysuria. [] Musculoskeletal: Denies back pain or joint pain. [] Integument: Denies rash. [] Neurologic: Denies headache, focal weakness or sensory changes. [] Psychiatric: Denies depression or anxiety. [] Heart Score: C/O Chest Pain: N/A Risk Factors: Risk Factors: DM, Current or recent (<one month) smoker, HTN, HLP, family history of CAD, obesity. Risk Scores: Score 0 - 3: 2.5% MACE over next 6 weeks - Discharge Home Score 4 - 6: 20.3% MACE over next 6 weeks - Admit for Clinical Observation Score 7 - 10: 72.7% MACE over next 6 weeks - Early Invasive Strategies Allergies: Allergies: Allergies Coded Allergies Type Severity Reaction Last Updated Verified I S O L A T I O N *CONTACT* Allergy Unknown 11/24/19 Yes No Known Medication Allergies Allergy Unknown 11/24/19 Yes Physical Exam: PE: Constitutional: Well developed, well nourished, no acute distress, non-toxic appearance. [] Abdomen: Feeding tube site mild amount of bile yellow drainage, trace amount of redness around the feeding tube site, bowel sounds normal, soft, no tenderness, no masses, no pulsatile masses. [] Skin: Warm, dry, no erythema, no rash. [] Back: No tenderness, no CVA tenderness. [] Extremities: No tenderness, no cyanosis, no clubbing, paralysis noted on the left side Neurologic: Alert and oriented X 3, normal motor function, normal sensory function, no focal deficits noted. [] Psychologic: Affect normal, judgement normal, mood normal. [] Current Patient Data: Vital Signs: Vital Signs Date Time Temp Pulse Resp B/P (MAP) Pulse Ox O2 Delivery O2 Flow Rate FiO2 08/30/20 15:02 98.1 70 12 117/73 (88) 99 Room Air 98.1 EKG: EKG: [] Radiology/Procedures: Radiology/Procedures: [] Course & Med Decision Making: Course & Med Decision Making Pertinent Labs and Imaging studies reviewed. (See chart for details) This is a 50-year-old male patient presenting to the ED today complaining of drainage from the feeding tube, feeding tube came out 3 weeks ago. Drainage appears to be bile. There is trace erythema around the feeding tube site likely irritation. I spoke to GI who requested I speak to general surgery. Spoke to Dr. Bartlett who requested patient follow-up with Dr. Dawson as an outpatient. Patient asking for antibiotics. Prescription for cephalexin sent to the pharmacy. Dragon Disclaimer: Dragon Disclaimer: This electronic medical record was generated, in whole or in part, using a voice recognition dictation system. Departure Departure Impression: Primary Impression: Encounter for tube feeding instruction Disposition: HOME / SELF CARE / HOMELESS Condition: STABLE Referrals: TK HOSKINS (PCP) KARLA DAWSON MD follow up as soon as you can Patient Instructions: Care of a Feeding Tube Site Additional Instructions: Your feeding tube came out 3 weeks ago. There are some drainage from the hole. This is usually not in usual, it looks like bile. We put you on antibiotics prophylaxis. Please follow-up with [facility] Cephalexin (CEPHALEXIN) 500 Mg Tablet 1 TAB PO TID, #30 TAB Prov: YEYO ROSALES APRN 08/30/20 YEYO ROSALES APRN August 30, 2020 16:19
== END 2020-08-30 16:20 | disposition home or self-care (01) ==
LOC: ER 13:55
DX: K94.29 Other complications of gastrostomy (principal); Z86.73 Personal history of transient ischemic attack (TIA), and cerebral infarction without residual deficits; Z87.891 Personal history of nicotine dependence; K21.9 Gastro-esophageal reflux disease without esophagitis; Z91.041 Radiographic dye allergy status; Y83.8 Other surgical procedures as the cause of abnormal reaction of the patient, or of later complication, without mention of misadventure at the time of the procedure; Y92.89 Other specified places as the place of occurrence of the external cause
CPT/HCPCS: 99283